=== PATIENT | female | born 1960 | race Caucasian/White ===

== ENCOUNTER → 2017-05-01 | Day surgery (SDC) | payer OTHER ==
--- NOTE | 2017-04-30 09:55 | History and Physical ---
"History & Physical Date of Service Apr 30, 2017. History & Physical Date of Note, 04/30/17 Chief Complaint: History of bioprosthetic aortic valve replacement with technically limited transthoracic echocardiogram, chronic diastolic heart failure, preoperative cardiac evaluation. PCP: DEON LANGSTON [facility] [place] [id number] [phone] History of Present Illness: Jovita Rose is a 56 year old year old female initially seen in cardiology consultation by the undersigned as an outpatient on 02/05/17 per the request of Dr. Langston to address the above concerns. The patient had previously lived in [place], [place] and was followed at [facility]. She has a history of bilateral breast carcinoma with bilateral mastectomies and chest radiation. She has a history of bicuspid aortic valve stenosis. She underwent cardiac catheterization in September, which revealed no significant obstructive CAD, but findings of mildly elevated right heart and left heart pressures. She was subsequently referred for surgical aortic valve replacement which took place in October, at [facility] Receiving a #25 bio AVR at that time. A previous transthoracic echocardiogram had been performed in 2013 at that time it was noted that the study was very technically limited with poor acoustic windows due to her body habitus and previous breast surgeries. Appropriate bioprosthetic aortic valve function was noted at that time although as mentioned it was a technically limited study. The patient had since moved to [place] and has since moved back to [place] and has lived in [place] since November,. She notes worsening shortness of breath with exertion and ankle edema over the last few months. She has recently been seen by surgery in regards to asymptomatic incisional hernia. She is also due for surveillance colonoscopy due to her past history of colon cancer with last colonoscopy having been performed about 3 years ago. She is also interested in pursuing Aissatou-en-Y gastric bypass surgery. Since her initial cardiology consultation in Jan, 2017 she underwent a nuclear stress test on 03/13/17 that revealed normal perfusion , no ischemia or scar and an LVEF of 68%. A transthoracic echo revealed grossly normal LV wall motion and LVEF, but due to poor acoustic windows related to her breast reconstruction the prosthetic aortic valve was note well visualized and the gradients could not be assessed. She has has continued mild shortness of breath and mild ankle edema , improved on her current diuretic regimen. Review of Systems: A Complete Review of 10 Systems is as stated above or negative. Past Medical History: Hypertension Type II DM Dyslipidemia Aortic stenosis S/P AVR # 25 pericardial Hypothyroidism Breast CA S/P XRT & chemotherapy Colon cancer DANYELLE , on CPAP BMI > 40 Past Surgical History: S/P AVR #25 pericardial valve Partial colectomy for stage I colon cancer LSCS Bilateral mastectomies Removal of right breast implant 2010 Hysteroscopy with biopsy Family History: Both parents with premature CAD (Father at 51 years; mother at 57 years) Social History: bow maker No tobacco; social alcohol Allergies: Glycerin; Lactose; Lisinopril; Monosodium glutamate; and Pcn [ penicillins] Medications: CURRENT OUTPATIENT MEDICATIONS INSTRUCTIONS Pediatric Lqtinbuf-Zlsfxcdn-J (FLINTSTONES COMPLETE) 60 MG chewable tablet Take 1 Tab by mouth daily. meclizine (ANTIVERT) 25 MG Tablet Take 2 Tabs by mouth 2 times a day. ARIPiprazole (ABILIFY) 2 MG Tablet Take 1 Tab by mouth daily. pregabalin (LYRICA) 50 MG Capsule Take 1 Cap by mouth 2 times a day. metoprolol tartrate (LOPRESSOR) 100 MG Tablet Take 1 Tab by mouth daily. Insulin Regular Human, Conc, 500 UNIT/ML SOPN 200 units 30 min prior to meals, plus 5 units for every 50 above 150 Insulin Syringe/Needle U-500 31G X 6MM 0.5 ML MISC Use as directed. Blood Glucose Monitoring Suppl (ONETOUCH ULTRA SYSTEM) W/DEVICE KIT As directed ONETOUCH DELICA LANCETS 33G MISC TEST 8 TIMES DAILY DIRECTED, E11.9, hypertension Glucose Blood (ONETOUCH ULTRA BLUE) STRP TEST 8 TIMES DAILY DIRECTED, E11.9, hypertension Naproxen Sodium (ALEVE) 220 MG Capsule Take 220 mg by mouth 3 times a day. Calcium Carbonate-Simethicone (ADRIAN-SELTZER HEARTBURN + GAS) 750-80 MG CHEW Take by mouth. cyclobenzaprine (FLEXERIL) 10 MG Tablet TAKE 1 TABLET AT BEDTIME NEEDED FOR MUSCLE SPASM torsemide 10 mg TAKE (1) TABLET DAILY. valsartan (DIOVAN) 40 MG Tablet TAKE (1) TABLET DAILY. levothyroxine (LEVOXYL) 75 MCG Tablet One tablet by mouth daily busPIRone (BUSPAR) 15 MG Tablet TAKE 1 TABLET BY MOUTH TWICE DAILY MetFORMIN (GLUCOPHAGE) 1000 MG Tablet One pill by mouth twice a day with meals traZODone (DESYREL) 100 MG Tablet At bedtime when needed buPROPion (WELLBUTRIN) 100 MG Tablet Take 100 mg by mouth daily. atorvaSTATin (LIPITOR) 40 MG Tablet Take 1 Tab by mouth daily. To prevent heart attack/stroke, protect kidney, and cholesterol CITALOPRAM HYDROBROMIDE 40 MG PO TABS one tab daily DOCUSATE SODIUM 100 MG PO CAPS 1 daily ASPIRIN EC 81 MG PO TBEC 1 Tab Oral Daily glucose (BD GLUCOSE) 5 GM CHEW 3 every 15 minutes until glucose is > 100 mg/dL for hypoglycemia Clindamycin HCl 300 MG Capsule Take 300 mg by mouth. Before dentist OBJECTIVE/PHYSICAL EXAMINATION: Vitals taken 02/05/17: BP 102/64 | Pulse 96 | Resp 16 | Wt 221 lbs 3.2 oz ( 100.336kg) | BMI 42.31 kg/m | BSA 2.07 m | LMP 04/07/2011 General: no acute distress and stated age Eyes: conjunctiva are pink and non-injected, sclera clear Neck: normal jugular venous pulse, no hepatojugular reflux Chest: normal shape and normal respiratory effort Lungs: clear to auscultation and percussion Cardiac Exam: - regular heart sounds, 2/6 systolic murmur heard best a right sternal border Chest exam: Well-healed midline sternotomy incision, bilateral mastectomy incisions Abdomen: abdomen soft, non-tender, no abnormal masses and no hepatosplenomegaly ventral hernia noted Musculoskeletal: no gait disturbance, no weakness Extremities: Trace to 1+ bilateral ankle edema Neuro: grossly normal exam Psych: appropriate affect and insight. Data: EKG performed today 02/05/2017 revealed normal sinus rhythm at 99 beats per minute. Although the computer interpretation includes the finding of age undetermined anterior infarction, there is an R-wave noted in V2, in the R-wave progression is similar to the prior tracing dating back to 12/08/2014. Mild nonspecific inferior ST changes are noted limited to leads II and III. IMPRESSION: 56 year old year old female ICD-10-CM 1. SHAW (dyspnea on exertion) R06.09 2. S/P AORTIC VALVE REPLACEMENT - #25 pericardial Hernandez valve Z95.2 3. Heart failure, diastolic, due to HTN (HCC) I11.0 I50.30 4. Type 2 diabetes mellitus with hemoglobin A1c goal of less than 7.0% (HCC) E11.9 5. HTN, goal below 140/90 I10 6. Dyslipidemia E78.5 7. Preoperative cardiovascular examination Z01.810 PLAN: Proceed with transesophageal echocardiogram for further assessment of bioprosthetic AV structure and function due to shortness of breath, and prior to proposed hernia repair, and bariatric surgery. Roberto Carlos Muniz DO [facility], [address] [place] [id number] This chart was completed in part utilizing [employer] Speech Voice Recognition Software. Grammatical errors, random word insertions, prounoun errors, and incomplete sentences are an occasional consequence of this system due to software limitations, ambient noise, and hardware issues. Any formal questions or concerns about the content, text, or information contained within the body of this dictation should be directly addressed to the provider for clarification."
[2017-05-01] VITALS (11 sets, daily range): BP systolic 84–155; BP diastolic 45–70; PULSE 84–95; TEMP 36.5; O2SAT 93–98; Ht 149.9 cm; Wt 101.0 kg
[~2017-05-01] VITALS: Ht 149.9 cm; Wt 101.0 kg
[~2017-05-01] MED LIST: ARIP2TAB3 PO; ASPI81TA28 PO; ATOR-24 PO; BUPR-83 PO; BUPR100T8 PO; BUSP15TA70 PO; CALC-571 PO; CITA40TA4 PO; CLIN300C2 PO; CYCL10TA6 PO; DOCU100C31 PO; GLUC-338 PO; INSUINJ2 SQ; LEVO75TA5 PO; LYR50 PO; MECL1TAB42 PO; METF-384 PO; METO100T14 PO; NAPR1TAB9 PO; PEDICHW50 PO; TORS20TA2 PO; TRAZ100T29 PO; VALS40TA2 PO
--- NOTE | 2017-05-01 08:02 | History & Physical Bridge Note ---
H&P Re-Evaluation Bridge Note: I have examined the patient, reviewed the History & Physical and in the interval since the performance of the History & Physical I have noted the following changes of clinical significance: Pt notes continued shortness of breath with exertion and ankle edema, on torsemide 10 mg PO daily , Otherwise no changes noted
--- NOTE | 2017-05-01 08:05 | Cardiology Procedure Brief Nt ---
Preliminary Cardiology Note Procedure Date May 01, 2017. Pre-Procedure Diagnosis Assess prosthetic AV function Post-Procedure Diagnosis Suspected Severe prosthetic Procedure(s) Performed ALMA Rn Maternal Child Mini Muniz DO Irrigation Installation Specialist(s) INGE Dexter Estimated Blood Loss none Preliminary Findings 2D and echocardiographic findings of severe Recommendations Will plan for cardiac cath and CT surgery consult Specimens none Anesthesia lidocaine 40 mg IV, propofol 300 mg IV Complication(s) None Disposition cardiac laborer tan house recovery area
--- NOTE | 2017-05-01 08:29 | Discharge Instructions ---
Discharge Instructions Procedure Procedure Date: May 01, 2017. Reason for Visit: Assess prosthetic Aortic Valve function Discharge Discharge Date: May 01, 2017. Discharge Diagnosis: Severe prosthetic AV stenosis Last Recorded Wt (Kilograms): 101 Anesthesia Post Anesthesia Instructions: If you have had General Anesthesia or IV Sedation: * Do not drive today. * Resume driving when surgeon permits. * Do not make important decisions or sign legal documents today. * Call surgeon for: 1. Temperature elevations greater than 101 degrees F. 2. Uncontrollable pain. 3. Excessive bleeding. 4. Persistent nausea and vomiting. 5. Medication intolerance (nausea, vomiting or rash). * For nausea and vomiting use only clear liquids such as: tea, soda, bouillon until nausea subsides, then gradually increase diet as tolerated. * If you have any concerns or questions, call your surgeon's office. If physician is unavailable and it is an emergency, call 911 or go to the nearest emergency room. Instructions Activity Recommendations: limitations as noted below Recommended Home Diet: resume previous diet Allergies: Coded Allergies: Lisinopril (Unverified Allergy, Unknown, unk, 05/01/17) Uncoded Allergies: PENICILLIN (Allergy, Unknown, unk, 05/01/17) Provider Instructions ACTIVITY RECOMMENDATIONS: Resume activities as tolerated with no limitations unless specified. x__ No lifting over _10_ pounds for 24 hours. _x_ Do not engage in vigorous exercise, sexual activity, or sports for 24 hours. _x_ Do not drive or operate any motorized equipment for 24 hours. _x_ You may return to work/school tomorrow. _x_ Nothing to eat or drink until gag reflex returns. _x_ No HOT or WARM liquids for _24_ hours. _x_ Avoid "scratchy" foods such as potato chips or pretzels for 24 hours following procedure. SPECIAL CARE: If you experience coughing up or vomiting of blood, contact ___Dr Muniz, [phone] Follow Up Follow-up with: Keep follow up visit as planned Hector Monsalve Recommendations: Call your doctor if: * Temperature above 101 degrees * Pain not relieved by pain medicine ordered * There is increased drainage or redness from any incision * You have any unanswered questions or concerns. Your Doctors Instructions noted above were prepared by provider Roberto Carlos J. [place]. Patient Signature Section: Patient Instructions Signature Page Jovitakenia Harrisonjennifer Patient (or Guardian) Signature/Date: I have read and understand the instructions given to me by my caregivers. Caregiver/RN/Doctor Signature/Date: The above-named patient and/or guardian has received patient instructions on this date. + Original Patient Signature Page (only) stays with chart. Please make copy for patient.
--- NOTE | 2017-05-01 08:57 | Anesthesiology Progress Note ---
Anesthesia Post Op Note Date & Time May 01, 2017 at 08:57 Vital Signs Pain Intensity: 0 Vital Signs Past 12 Hours Date Time Temp Pulse Resp B/P (MAP) Pulse Ox O2 Delivery O2 Flow Rate FiO2 05/01/17 08:45 94 16 101/52 (68) 97 Room Air 05/01/17 08:30 89 16 97/51 (66) 97 Room Air 05/01/17 08:18 89 16 100/51 (67) 97 Room Air 05/01/17 08:08 90 16 85/49 (61) 98 Room Air 05/01/17 08:00 92 16 98/51 98 Nasal Cannula 4 05/01/17 07:58 92 16 98/51 (67) 98 Room Air 05/01/17 07:57 92 16 96/49 98 Nasal Cannula 4 05/01/17 07:55 92 16 111/47 98 Nasal Cannula 4 05/01/17 07:50 92 16 102/45 98 Nasal Cannula 4 05/01/17 07:45 87 16 101/56 98 Nasal Cannula 4 05/01/17 07:40 84 16 84/47 98 Nasal Cannula 4 05/01/17 07:35 87 16 155/69 98 Nasal Cannula 4 05/01/17 07:32 90 16 140/57 96 Nasal Cannula 4 05/01/17 07:28 95 16 140/57 96 Nasal Cannula 4 05/01/17 06:57 36.5 88 18 93 Room Air Notes Mental Status: alert / awake / arousable, participated in evaluation Pt Amnestic to Procedure: Yes Nausea / Vomiting: adequately controlled Pain: adequately controlled Airway Patency, RR, SpO2: stable & adequate BP & HR: stable & adequate Hydration State: stable & adequate Anesthetic Complications: no major complications apparent
--- NOTE | 2017-05-01 09:56 | TEE ---
*NOTICE TO RECEIVING [employer] This information is strictly Confidential and protected under [place] law. [place] law prohibits you from making any further disclosure of this information unless further disclosure is expressly permitted by the written consent of the person to whom it pertains or is authorized by law. A general authorization for the release of medical or other information is not sufficient for this purpose. Hospital accepts no responsibility if the information is made available to any other person, INCLUDING THE PATIENT. Interpretation Summary * Name: BRIGIDA ROCA Study Date: 05/01/2017 07:34 AM BP: 140/57 mmHg * Patient Location: Cardiac Spa Manager Holding area HR: 90 * : 1960 (M/d/yyyy) Gender: Female Height: 59 in * Age: 56 yrs Ethnicity: CA Weight: 222 lb * Ordering Physician: Roberto Carlos Muniz DO, FACC * Referring Physician: Roberto Carlos Muniz DO, FACC * Performed By: Savannah Larsen RCS * * Reason For Study: Pre-Op, SOB, Abnormal ECHO * BSA: 1.9 m2 * -- Conclusions -- * There is severe concentric left ventricular hypertrophy. * No regional wall motion abnormalities noted. * Normal to hyperdynamic LV systolic function was present. * The qualitative left ventricular Ejection Fraction = >70 %. * There is mild mitral regurgitation. * There is moderate tricuspid regurgitation. * Doppler findings do not suggest pulmonary hypertension. * The aortic root is normal size. * There is a bioprosthetic aortic valve. * The bioprosthetic leaflet analogous to the [facility] coronary cusp opens normally, however, there is reduced excusion of the other two leaflets with noted prosthetic calcification. * Mild prosthetic aortic valve regurgitation is present. * Severe prosthetic aortic valve stenosis is present. * The peak CW velocity across the aortic valve is 4.5 m/s, the mean AV gradient =49 mm Hg, the calculated MILENA=0.8 cm squared. Procedure Details * ALMA Probe #1 utilized for procedure. * The study was performed in Cardiac Catheterization Lab. * Time out was conducted by the physician, nurse, and medical technologist clinical with positive identification of patient and procedure. * Informed consent for Transesophageal Echocardiogram was obtained prior to the procedure. * An intravenous line was placed. A topical anesthetic agent was used for oropharangeal anesthesia. A bite block was inserted. * Sedation performed by the anesthesia department. * 40 mg IV of Lidocaine was used for procedure. 300 mg IV of Propofol was used for procedure. PROBE IN: 0732 PROBE OUT: 0757 40 mg of Lidocaine was administered by anesthesia. 300 mg of Propofol was administered by anesthesia. * The patient's vital signs, including blood pressure, heart rate, pulse oximetry and cardiac rhythm were monitored throughout the procedure . * Contrast injection with agitated saline was performed. * A multifrequency, multiplane transesopheageal echocardiographic endoscope was inserted and manipulated in the standard fashion to achieve multiplane views. * The transesophageal probe was passed without difficulty. * The usual views were obtained; basal, mid-esophageal, transgastric and aortic views. * The patient tolerated the procedure well without evidence of orophangeal or esophageal trauma. * A 2D transesophageal echocardiogram was performed. * A 2D transesophageal echocardiogram with color flow Doppler was performed. * A 2D transesophageal echocardiogram with Doppler and color flow Doppler was performed. Left Ventricle * The left ventricle is normal in size. * There is severe concentric left ventricular hypertrophy. * Normal to hyperdynamic LV systolic function was present. * Ejection Fraction = >70 %. * The left ventricular wall motion is normal. * No regional wall motion abnormalities noted. Right Ventricle * The right ventricle is normal in size and function. Atria * The left atrial size is normal. * The left atrial appendage was not assessed. * Right atrial size is normal. * The interatrial septum is intact with no evidence for an atrial septal defect. Mitral Valve * The mitral valve anatomy is normal. * There is no mitral valve prolapse present. * There is no mitral valve stenosis. * There is mild mitral regurgitation. Tricuspid Valve * The tricuspid valve is normal. * There is no tricuspid stenosis. * There is moderate tricuspid regurgitation. * Doppler findings do not suggest pulmonary hypertension. Aortic Valve * There is a bioprosthetic aortic valve. * The bioprosthetic leaflet analogous to the [facility] coronary cusp opens normally, however, there is reduced excusion of the other two leaflets with noted prosthetic calcification. Mild prosthetic aortic valve regurgitation is present. Severe prosthetic aortic valve stenosis is present. Pulmonic Valve * The pulmonic valve is not well seen, but is grossly normal. Great Vessels * The aortic root is normal size. Pericardium * There is no pericardial effusion. MMode 2D Measurements and Calculations Ao root diam 3.1 cm Ao root area 7.5 cm\S\2 LVOT diam 1.9 cm LVOT area 2.8 cm\S\2 Doppler Measurements and Calculations Ao V2 max 451.6 cm/sec Ao max PG 81.6 mmHg Ao max PG (full) 75.8 mmHg Ao V2 mean 318.8 cm/sec Ao mean PG 49.1 mmHg Ao mean PG (full) 45.3 mmHg Ao V2 VTI 97.7 cm MILENA(I,A) 0.77 cm\S\2 MILENA(I,D) 0.77 cm\S\2 MILENA(V,A) 0.75 cm\S\2 MILENA(V,D) 0.75 cm\S\2 LV V1 max PG 5.8 mmHg LV V1 mean PG 3.8 mmHg LV V1 max 120.4 cm/sec LV V1 mean 92.2 cm/sec LV V1 VTI 26.6 cm SV(Ao) 733.4 ml SI(Ao) 380.5 ml/m\S\2 SV(LVOT) 75.3 ml SI(LVOT) 39.1 ml/m\S\2
== END | disposition home or self-care (01) ==
LOC: C.CATH 06:20
PROVIDERS: ATTEND Specialist
DX: T82.858A Stenosis of other vascular prosthetic devices, implants and grafts, initial encounter (principal); I11.0 Hypertensive heart disease with heart failure; I50.32 Chronic diastolic (congestive) heart failure; I25.10 Atherosclerotic heart disease of native coronary artery without angina pectoris; E78.5 Hyperlipidemia, unspecified; E11.9 Type 2 diabetes mellitus without complications; E03.9 Hypothyroidism, unspecified; G47.33 Obstructive sleep apnea (adult) (pediatric); Z85.3 Personal history of malignant neoplasm of breast; Z85.038 Personal history of other malignant neoplasm of large intestine; Z92.21 Personal history of antineoplastic chemotherapy; Z90.13 Acquired absence of bilateral breasts and nipples; Z90.49 Acquired absence of other specified parts of digestive tract; Z79.4 Long term (current) use of insulin; Z79.82 Long term (current) use of aspirin; Z79.899 Other long term (current) drug therapy; Z95.2 Presence of prosthetic heart valve; X58.XXXA Exposure to other specified factors, initial encounter

== ENCOUNTER 2017-07-17 19:27 | Emergency (ER) | payer OTHER ==
[~2017-07-17] VITALS: Ht 149.9 cm; Wt 104.5 kg
[2017-07-17 19:39] VITALS: TEMP 37.1; Ht 149.9 cm; Wt 104.5 kg
[2017-07-17 20:10] VITALS: O2SAT 94
--- NOTE | 2017-07-17 20:31 | EMERGENCY ROOM VISIT NOTE ---
History Report prepared by Ricarda: Rito Padilla Under the Supervision of: Dr. Shaquille Kulkarni M.D. First contact with patient: 20:07 Chief Complaint: SHORTNESS OF BREATH Stated Complaint: SOB- PHYSICIAN REFERRED- CARDIAC HX History of Present Illness The patient is a 56 year old female who presents to the Emergency Room with complaints of shortness of breath that began recently. This afternoon, she was walking to the bank and became very short of breath. This is abnormal for her to experience shortness of breath with exertion. At this time, she was also having heart palpitations. She follows up with Dr. Muniz for the swelling in her legs and they called her this evening. She told them about this episode of shortness of breath and they referred her into the ER. Her legs are more swollen than usual. She notes that she gained 6 pounds as well. She denies any abdominal pain. She has a history of 4 c-sections and a open heart procedure. She is on Warfarin secondary to her heart murmur. Source of History: patient Onset: this afternoon Position: other (Respiratory System) Symptom Intensity: moderate Quality: other (Shortness of breath) Timing: constant Modifying Factors (Worsening): exertion Associated Symptoms: No abdominal pain Note: She has bilateral leg edema as well. Review of Systems All systems have been listed, reviewed, and are negative other than those previously mentioned. Please see Additional Medical History Sheet. Past Medical & Surgical Medical Problems: (1) Breast cancer (2) Colon cancer (3) Heart murmur Surgical Problems: (1) History of mastectomy (2) History of open heart surgery (3) Previous section Family History Omitted secondary to the patient's age. Social History Smoking Status: Never Smoker Smokeless Tobacco Use: No Drug Use: none Marital Status: in relationship Housing Status: lives with significant other Occupation Status: employed Current/Historical Medications Scheduled Aripiprazole (Abilify), 2 MG PO DAILY Atorvastatin (Lipitor), 40 MG PO DAILY Bupropion (Wellbutrin Sr), 100 MG PO QAM Buspirone Hcl (Buspar), 15 MG PO BID Citalopram Hydrobromide (Citalopram Hydrobromide), 40 MG PO DAILY Clindamycin Hcl (Cleocin), 1 CAP PO before dentist Cyclobenzaprine Hcl (Flexeril), 10 MG PO HS Insulin Regular (Human) (Humulin R U-500 (Concentr), 200 UNITS SQ prior to meals Levothyroxine Sodium (Levothyroxine Sodium), 1 TAB PO DAILY Meclizine Hcl (Meclizine Hcl), 2 TAB PO BID Metformin Hcl (Glucophage), 1,000 MG PO BID Metoprolol Tartrate (Lopressor) (Lopressor), 1 TAB PO DAILY Pregabalin (Lyrica), 50 MG PO DAILY Spironolactone (Aldactone), 1 TAB PO DAILY Torsemide (Demadex), 10 MG PO DAILY Trazodone Hcl (Trazodone), 100 MG PO HS Warfarin Sodium (Coumadin), 7.5 MG PO DAILY Allergies Coded Allergies: Lisinopril (Unverified Allergy, Unknown, unk, 07/17/17) Penicillins (Unverified Allergy, Unknown, ., 07/17/17) Uncoded Allergies: PENICILLIN (Allergy, Unknown, unk, 05/01/17) Physical Exam Vital Signs Date Time Temp Pulse Resp B/P (MAP) Pulse Ox O2 Delivery O2 Flow Rate FiO2 07/17/17 23:27 94 Room Air 07/17/17 22:20 92 20 123/45 93 Room Air 07/17/17 20:43 83 07/17/17 20:10 94 07/17/17 19:39 37.1 86 20 115/67 90 Room Air Physical Exam GENERAL: Patient awake, alert, oriented x 3. Patient follows commands. Patient does not appear toxic. Patient is adequately hydrated and well- nourished. SKIN: No erythema, pallor, cyanosis or rash HEENT: Normal head, pupils equal, reactive to light and accommodation. Oral cavity and posterior pharynx appear normal. Neck: Without adenopathy, no neck vein distention. LUNGS: Clear to auscultation. No wheezes, no rales, no rhonchi. HEART: 4/6 systolic murmur. No gallops. No rubs CHEST: Midline sternotomy scars. Bilateral mastectomy. ABDOMEN: Obese, soft, nontender. RLQ abdominal hernia. EXTREMITIES: No signs of trauma. 2+ nonpitting pretibial edema. No calf or thigh tenderness. NEUROLOGIC: Cranial nerves II-XII within normal limits. No gross motor sensory function deficits. Medical Decision & Procedures ER Provider Diagnostic Interpretation: Radiology results as stated below per my review and radiologist interpretation: CHEST 2 VIEWS ROUTINE HISTORY: Short of breath. COMPARISON: None. FINDINGS: The cardiac silhouette is mildly enlarged. Aortic valve prosthesis. Poststernotomy changes. Hazy appearance to the left mid to lower lung zone is likely due to overlapping breast implant. The lungs appear clear. No evidence for pulmonary edema. No pleural effusions. No pneumothorax. IMPRESSION: No acute process. Electronically signed by: German Del Cid M.D. 07/17/2017 9:09 PM Dictated Date/Time: 07/17/2017 9:[address] Chest: No Evidence of Pulmonary Embolism Laboratory Results 07/17/17 20:30 Red Blood Count 4.38, Mean Corpuscular Volume 89.7, Mean Corpuscular Hemoglobin 30.1, Mean Corpuscular Hemoglobin Concent 33.6, Mean Platelet Volume 10.0 07/17/17 20:30 Test 07/17/17 20:30 White Blood Count 11.44 K/uL (4.8-10.8) Red Blood Count 4.38 M/uL (4.2-5.4) Hemoglobin 13.2 g/dL (12.0-16.0) Hematocrit 39.3 % (37-47) Mean Corpuscular Volume 89.7 fL (80-100) Mean Corpuscular Hemoglobin 30.1 pg (25-34) Mean Corpuscular Hemoglobin Concent 33.6 g/dl (32-36) Platelet Count 186 K/uL (130-400) Mean Platelet Volume 10.0 fL (7.4-10.4) RDW Standard Deviation 51.5 fL (36.4-46.3) RDW Coefficient of Variation 16.2 % (11.5-14.5) Nucleated RBC Absolute Count (auto) 0.07 K/uL (0-0) Neutrophils % (Manual) 47.4 % Lymphocytes % (Manual) 28.9 % Variant Lymphocytes % (manual) 0.9 % Monocytes % (Manual) 2.6 % Metamyelocytes % 0.9 % Nucleated Red Blood Cells % 0.6 % Neutrophils # (Manual) 5.42 K/uL (1.4-6.5) Total Absolute Neutrophils 5.42 K/uL (1.4-6.5) Lymphocytes # (Manual) 3.31 K/uL (1.2-3.4) Absolute Variant Lymphocytes 0.10 K/uL Total Absolute Lymphocytes 5.62 K/uL (1.2-3.4) Monocytes # (Manual) 0.30 K/uL (0.11-0.59) Metamyelocytes # 0.10 K/uL (0-0) Percent Large Granular Lymphocytes 19.3 % Absolute Large Granular Lymphocytes 2.21 K/uL Polychromasia 1+ Prothrombin Time 19.2 SECONDS (9.0-12.0) Prothromb Time International Ratio 1.8 (0.9-1.1) Activated Partial Thromboplast Time 32.8 SECONDS (21.0-31.0) Partial Thromboplastin Ratio 1.3 Anion Gap 10.0 mmol/L (3-11) Est Creatinine Clear Calc Drug Dose 59.6 ml/min Estimated GFR () 64.1 Estimated GFR (Non- 55.3 BUN/Creatinine Ratio 21.4 (10-20) Calcium Level 9.6 mg/dl (8.5-10.1) Total Bilirubin 0.6 mg/dl (0.2-1) Aspartate Amino Transf (AST/SGOT) 21 U/L (15-37) Alanine Aminotransferase (ALT/SGPT) 25 U/L (12-78) Alkaline Phosphatase 73 U/L (45-117) Troponin I 0.021 ng/ml (0-0.045) Total Protein 7.2 gm/dl (6.4-8.2) Albumin 3.6 gm/dl (3.4-5.0) Globulin 3.6 gm/dl (2.5-4.0) Albumin/Globulin Ratio 1.0 (0.9-2) Laboratory results as stated above per my review. Medications Administered Medications (Trade) Dose Ordered Sig/Nadege Route Start Time Stop Time Status Last Admin Dose Admin Albuterol/ Ipratropium (Duoneb) 3 ml NOW STAT INH 07/17/17 22:05 07/17/17 22:07 DC 07/17/17 22:19 3 ML ECG Indication: SOB/dyspnea Rate (beats per minute): 79 Rhythm: normal sinus Findings: ST depression (1, 2, aVL, V5, V6), left axis deviation, prolonged QT Comparison ECG Date: no prior available ED Course 2007: Past medical records reviewed. The patient was evaluated in room C2. A complete history and physical examination was performed. 2205: Ordered DuoNeb 3 ml INH 2330: The patient's ambulatory trial was successful. Her oxygen saturation at that time was 93-94%. 2356: Secondary to the patient's PE history, I have decided to CT her chest to rule out the possibility for this diagnosis. Medical Decision I considered multiple diagnoses including: congestive heart failure, aortic stenosis, PE and pneumonia. The patient complains of dyspnea on exertion for the past 1 month. Multiple labs, EKG and imaging were obtained. Please see above. The patient has a prosthetic aortic valve. She does not appear to be in failure or have evidence of pneumonia. White count is minimally elevated. CT was negative for PE. Patient's pulse oximetry was in the mid 90s. She does not appear to be dyspneic. The patient was able to ambulate in the ED and maintained pulse oximetry within the 90s. I believe that she is safely return home but will need follow-up by her family physician or substitute crossing guard. No medication changes were made. Medication Reconcilliation Current Medication List: was personally reviewed by me Blood Pressure Screening Patient's blood pressure: Normal blood pressure Blood pressure disposition: Did not require urgent referral Impression Primary Impression: Dyspnea Scribe Attestation The scribe's documentation has been prepared under my direction and personally reviewed by me in its entirety. I confirm that the note above accurately reflects all work, treatment, procedures, and medical decision making performed by me. Departure Information Dispostion Home / Self-Care Referrals Gregory Rausch M.D. (PCP) Forms HOME CARE DOCUMENTATION FORM, IMPORTANT VISIT INFORMATION Patient Instructions My [facility] Additional Instructions Continue all of your current medications as prescribed. Follow-up with your family physician and or substitute crossing guard within the next week. Return here sooner if you become more short of breath.
[2017-07-17] MEDS ORDERED: WARF5TAB90 PO (20:36)
[2017-07-17] MEDS ORDERED: SPIR25TA PO (20:36)
[2017-07-17 20:41] LABS: HEMATOCRIT 39.3 % (37-47); MEAN CELL VOLUME 89.7 fL (80-100); MEAN CORPUSCULAR HEMOGLOBIN 30.1 pg (25-34); MEAN CORPUSCULAR HGB CONC 33.6 g/dl (32-36); PLATELET COUNT 186 K/uL (130-400); RED BLOOD COUNT 4.38 M/uL (4.2-5.4); WHITE BLOOD COUNT 11.44 K/uL (4.8-10.8)
[2017-07-17 20:53] LABS: INR 1.8 (0.9-1.1); PARTIAL THROMBOPLASTIN RATIO 1.3; PROTHROMBIN TIME (PATIENT) 19.2 SECONDS (9.0-12.0)
[2017-07-17 21:01] LABS: BUN/CREATININE RATIO 21.4 (10-20); CALCIUM 9.6 mg/dl (8.5-10.1); CREATININE 1.1 mg/dl (0.60-1.20); POTASSIUM 3.4 mmol/L (3.5-5.1)
--- NOTE | 2017-07-17 21:11 | DIAGNOSTIC IMAGING REPORT ---
CHEST 2 VIEWS ROUTINE HISTORY: Short of breath. COMPARISON: None. FINDINGS: The cardiac silhouette is mildly enlarged. Aortic valve prosthesis. Poststernotomy changes. Hazy appearance to the left mid to lower lung zone is likely due to overlapping breast implant. The lungs appear clear. No evidence for pulmonary edema. No pleural effusions. No pneumothorax. IMPRESSION: No acute process. Electronically signed by: German Del Cid M.D. 07/17/2017 9:09 PM Dictated Date/Time: 07/17/2017 9:05 PM
[2017-07-17 21:47] LABS: LARGE GRANULAR LYMPH ABSOLUTE 2.21 K/uL; LARGE GRANULAR LYMPHOCYTE % 19.3 %; LYMPH ABS # 3.31 K/uL (1.2-3.4); LYMPHOCYTE % 28.9 %; METAMYELOCYTE % 0.9 %; NEUTROPHILS % 47.4 %; POLYCHROMASIA 1+; VARIANT LYMPHOCYTE % 0.9 %
[2017-07-17] MEDS ORDERED: ALBUT/IPRATROP 3MG/0.5MG NEB 3 ML VIAL INH STA (22:05)
[2017-07-18] MEDS ORDERED: OPTIRAY 320 IV PRN (00:15)
[2017-07-18 01:01] VITALS: BP 98/42; PULSE 89; O2SAT 93
--- NOTE | 2017-07-18 06:38 | DIAGNOSTIC IMAGING REPORT ---
CT ANGIOGRAM OF THE CHEST CLINICAL HISTORY: Shortness of breath. History of right pulmonary embolism. COMPARISON STUDY: Chest x-ray dated 07/17/2017 TECHNIQUE: Following the IV administration of 92 mL of Optiray-320, CT angiogram of the thorax was performed from the thoracic inlet to the lung bases utilizing the pulmonary embolus protocol. Images are reviewed in the axial, sagittal, and coronal planes. IV contrast was administered without complication. MIP imaging was performed. A dose lowering technique was utilized adhering to the principles of ALARA. CT DOSE: 725.00 mGy.cm FINDINGS: Images of the upper abdomen reveal a 15 mm hypodense lesion within the right hepatic dome. The spleen appears enlarged. No pathologically enlarged axillary mediastinal or hilar lymph nodes were visualized. There was no evidence of thoracic aortic dilatation. There were no pulmonary artery filling defects to indicate acute pulmonary embolism. No pleural effusions are visualized. There is respiratory motion artifact. There is no focal pulmonary consolidation. A left-sided breast tissue food safety manager is visualized. There are postsurgical changes of a midline sternotomy and aortic valve replacement. IMPRESSION: 1. No evidence of acute pulmonary embolism 2. No evidence of focal pulmonary consolidation 3. 15 mm hypodense lesion within the right hepatic lobe 4. Splenomegaly Electronically signed by: Scott Reyes M.D. 07/18/2017 6:37 AM Dictated Date/Time: 07/18/2017 6:33 AM
[2017-07-18] MEDS ORDERED: LACT12LO (13:34)
[2017-07-18] MEDS ORDERED: TORS10TA14 PO (13:34)
[2017-07-18] MEDS ORDERED: NAPR500T3 PO (13:34)
[2017-07-18] MEDS ORDERED: CYCL1SOL OPR (13:34)
[2017-07-18] MEDS ORDERED: VALS40TA2 PO (13:34)
[2017-07-18] MEDS ORDERED: CMD5 PO (13:34)
[2017-07-18] MEDS ORDERED: DOCU-94 PO (13:34)
[2017-07-18] MEDS ORDERED: BUPR-83 PO (13:34)
[2017-07-18] MEDS ORDERED: SPR25 PO (13:34)
[2017-07-18] MEDS ORDERED: PEDICHW50 PO (13:35)
[2017-07-19 14:42] LABS: COMPLETE YES
[2017-07-19] MEDS ORDERED: ASPEC81 PO (14:53)
== END 2017-07-18 00:56 | disposition home or self-care (01) ==
LOC: C.EDB 19:29 → C.EDC 07-18 00:56
DX: R06.00 Dyspnea, unspecified (principal); R93.8 Abnormal findings on diagnostic imaging of other specified body structures; R16.1 Splenomegaly, not elsewhere classified; R00.8 Other abnormalities of heart beat; M79.89 Other specified soft tissue disorders; Z85.3 Personal history of malignant neoplasm of breast; Z85.038 Personal history of other malignant neoplasm of large intestine; Z79.01 Long term (current) use of anticoagulants; Z79.899 Other long term (current) drug therapy

== ENCOUNTER 2017-07-18 11:23 | Inpatient (IN) | payer OTHER ==
[2017-07-18] VITALS (8 sets, daily range): BP systolic 89–130; BP diastolic 48–65; PULSE 69–82; TEMP 36.7–37.1; O2SAT 91–99; Ht 149.9 cm; Wt 100.3 kg
[~2017-07-18] VITALS: Ht 149.9 cm; Wt 100.3 kg
[~2017-07-18 11:23] MED LIST changes: -ASPI81TA28 PO; -BUPR-83 PO; -CALC-571 PO; -DOCU100C31 PO; -GLUC-338 PO; -NAPR1TAB9 PO; -PEDICHW50 PO; +SPIR25TA PO; -VALS40TA2 PO; +WARF5TAB90 PO
[2017-07-18] MEDS ORDERED: ONDANSETRON INJ 2 MG/ML 2 ML VIAL IV PRN (12:15)
[2017-07-18] MEDS ORDERED: ACETAMINOPHEN 325 MG TAB PO PRN (12:15)
[2017-07-18 12:42] LABS: HEMATOCRIT 41.4 % (37-47); MEAN CORPUSCULAR HEMOGLOBIN 30.5 pg (25-34); MEAN CORPUSCULAR HGB CONC 33.6 g/dl (32-36); MEAN PLATELET VOLUME 10.5 fL (7.4-10.4); PLATELET COUNT 207 K/uL (130-400); RED BLOOD COUNT 4.55 M/uL (4.2-5.4); WHITE BLOOD COUNT 10.42 K/uL (4.8-10.8)
[2017-07-18 12:52] LABS: INR 1.6 (0.9-1.1)
[2017-07-18 13:10] LABS: BUN/CREATININE RATIO 20.5 (10-20); CALCIUM 9.5 mg/dl (8.5-10.1); CREATININE 1.03 mg/dl (0.60-1.20); MAGNESIUM 1.9 mg/dl (1.8-2.4); POTASSIUM 3.9 mmol/L (3.5-5.1)
[2017-07-18 13:12] LABS: PARTIAL THROMBOPLASTIN RATIO 1.3
[2017-07-18] MEDS ORDERED: DOCU-94 PO (13:34)
[2017-07-18] MEDS ORDERED: TORS10TA14 PO (13:34)
[2017-07-18] MEDS ORDERED: VALS40TA2 PO (13:34)
[2017-07-18] MEDS ORDERED: CYCL1SOL OPR (13:34)
[2017-07-18] MEDS ORDERED: SPR25 PO (13:34)
[2017-07-18] MEDS ORDERED: NAPR500T3 PO (13:34)
[2017-07-18] MEDS ORDERED: CMD5 PO (13:34)
[2017-07-18] MEDS ORDERED: LACT12LO (13:34)
[2017-07-18] MEDS ORDERED: BUPR-83 PO (13:34)
[2017-07-18] MEDS ORDERED: PEDICHW50 PO (13:35)
[2017-07-18] MEDS ORDERED: POLYETHYLENE (MIRALAX) 17 GM PACK PO PRN (13:45)
[2017-07-18] MEDS ORDERED: GLUCAGON FOR INJ 1 MG VIAL SQ PRN (14:00)
[2017-07-18] MEDS ORDERED: DEXTROSE 50% 50 ML SYR IV PRN (14:00)
[2017-07-18] MEDS ORDERED: GLUCOSE 10 TABS/TUBE PO PRN (14:00)
[2017-07-18] MEDS ORDERED: GLUCOSE 40% GEL 15 GM TUBE PO PRN (14:00)
[2017-07-18] MEDS ORDERED: PHARMACY GLYCEMIC MGMT CONSULT PRN (14:03)
[2017-07-18] MEDS ORDERED: TRAZODONE HCL 100 MG TAB PO PRN (14:15)
[2017-07-18] MEDS ORDERED: INSULIN REGULAR SQ SCH (14:15)
[2017-07-18] MEDS ORDERED: MECLIZINE HCL 12.5 MG TAB PO PRN (14:15)
[2017-07-18] MEDS ORDERED: CYCLOBENZAPRINE HCL 10 MG TAB PO PRN (14:15)
[2017-07-18] MEDS ORDERED: [UNRECOGNIZED DRUG - OTHER] SQ SCH (14:15)
--- NOTE | 2017-07-18 14:15 | Cardiology Consultation ---
Cardiology Consultation Date of Consultation: Jul 18, 2017 History of Present Illness Jovita Rose is a 56 year old female seen in cardiology consultation per the request of HIRA Victor for the evaluation of shortness of breath. The patient is well known to the undersigned as I have followed her as an outpatient , and previously performed a transesophageal echocardiogram on her at [facility] in 2016. I had initially seen the patient on 02/05/17 in outpatient cardiology consultation due to concerns of history of chronic diastolic heart failure with bioprosthetic aortic valve replacement in the past. At that time, she was seen in preoperative evaluation as she was interested in pursuing Aissatou-en-Y gastric bypass surgery. The patient had previously lived in [place], [place] and was followed at [facility]. She has a history of bilateral breast carcinoma with bilateral mastectomies and chest radiation. She has a history of bicuspid aortic valve stenosis. She underwent cardiac catheterization in September, which revealed no significant obstructive CAD, but findings of mildly elevated right heart and left heart pressures. She was subsequently referred for surgical aortic valve replacement which took place in October, at [facility] Receiving a #25 bio AVR at that time. A previous transthoracic echocardiogram had been performed in 2013 at that time it was noted that the study was very technically limited with poor acoustic windows due to her body habitus and previous breast surgeries. Appropriate bioprosthetic aortic valve function was noted at that time although as mentioned it was a technically limited study. The patient had since moved to [place] and has since moved back to [place] and has lived in [place] since November,. I had seen her in January, she complained of worsening shortness of breath. A transthoracic echocardiogram had been attempted as an outpatient in our office. It was technically insufficient to exclude prosthetic aortic valve stenosis or aortic valve regurgitation due to problems with poor acoustic windows related to her past breast surgery and body habitus. She therefore underwent transesophageal echocardiogram performed by the undersigned on 04/30/2017 with findings of prosthetic valve stenosis. The patient was placed on a trial of anticoagulation with Coumadin to see if the stenosis would improve with anticoagulation. The tentative plan was for her to see me in the office next week based on how she was feeling, I plan to repeat a transesophageal echocardiogram for reassessment of her valve disease. She however had called to the office on 2 separate occasions complaining of worsening shortness of breath. Recently her torsemide diuretic had been increased for 3 days. She stated that she fell as she urinated more but did not help her recent progressive symptoms. She describes to me that over the last month, her exertional shortness of breath has worsened. She states that when she tries to walk a distance of about one half of a city block she has to stop due to profound shortness of breath and a sensation that her heart is pounding out of her chest. She then has to rest for 10-15 minutes before she is able to do anything again. As noted this is been progressively worse over the last few months, and has definitely worsened over the last one month time. 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 When I followed up with her today, she complained of worsening symptoms, and therefore I had her come back for direct admission for further assessment. History Past Medical History: 1. Hypertension 2. Type 2 diabetes mellitus 3. Dyslipidemia 4. Aortic valve stenosis status post bioprosthetic aortic valve replacement as noted above 5. Hypothyroidism 6. Breast carcinoma for which she underwent x-ray therapy, and chemotherapy 7. Colon cancer 8. Obstructive sleep apnea on CPAP 9. Obesity, body mass index greater than 40 Past Surgical History: 1. Status post bioprosthetic aortic valve replacement 2. Partial colectomy for stage I colon cancer 3. Bilateral mastectomies 4. Removal of right breast implant in 2009 due to infection, and this was not replaced 5. Hysteroscopy with biopsy 6. 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 A total of 10 systems reviewed and were otherwise negative. Allergies Coded Allergies: Lisinopril (Unverified Allergy, Unknown, unk, 07/17/17) Penicillins (Unverified Allergy, Unknown, ., 07/17/17) Uncoded Allergies: PENICILLIN (Allergy, Unknown, unk, 05/01/17) Medications Reported Home Medications Medications Dose Route/Sig Max Daily Dose Days Date Category Dose Instructions Flintstones Chewable (Pediatric Multiple Vitamin W/) 1 Chw Chw 1 Tab PO QAM 07/18/17 Reported Coumadin (Warfarin Sod) 5 Mg Tab 1 Tab PO DAILY 07/18/17 Reported Take one tab Mon & Fri. Take 1.5 tab on , Wed, Th , Sat, & Sun Diovan (Valsartan) 40 Mg Tab 1 Tab PO DAILY 90 07/18/17 Reported Demadex (Torsemide) 10 Mg Tab 10 Mg PO DAILY 07/18/17 Reported Spironolactone 25 Mg Tab 0.5 Tab PO DAILY 07/18/17 Reported Naproxen 500 Mg Tab 1 Tab PO BID 30 07/18/17 Reported Colace (Docusate Sodium) 100 Mg Cap 1 Cap PO DAILY 15 07/18/17 Reported Cyclogyl 1% Oph (Cyclopentolate Hcl) 1 % Rosina 1 Drop OPR BID 07/18/17 Reported starting 2 weeks prior to surgery Wellbutrin (Bupropion HCl) 100 Mg Tab 100 Mg PO DAILY 07/18/17 Reported Lac-Hydrin Twelve (Lactic Acid (Ammonium Lactate)) 12 % Lot DAILY 07/18/17 Reported Apply to both feet daily Cleocin (Clindamycin Hcl) 300 Mg Cap 1 Cap PO BEFORE DENTIST 7 05/01/17 Reported Citalopram Hydrobromide 40 Mg Tab 40 Mg PO DAILY 05/01/17 Reported Lipitor (Atorvastatin Calcium) 40 Mg Tab 40 Mg PO DAILY 05/01/17 Reported Trazodone (Trazodone HCl) 100 Mg Tab 100 Mg PO HS PRN 05/01/17 Reported Glucophage (Metformin Hcl) 1,000 Mg Tab 1,000 Mg PO BID 05/01/17 Reported Buspar (Buspirone Hcl) 15 Mg Tab 15 Mg PO BID 05/01/17 Reported Levothyroxine Sodium 75 Mcg Tab 1 Tab PO DAILY 30 05/01/17 Reported Flexeril (Cyclobenzaprine Hcl) 10 Mg Tab 10 Mg PO HS PRN 05/01/17 Reported Humulin R U-500 (Concentr (Insulin Regular (Human)) 500 Unit/Ml Inj 200 Units SQ PRIOR TO MEALS 05/01/17 Reported plus 5 units for every 50 above 150 Lopressor (Metoprolol Tartrate) 100 Mg Tab 1 Tab PO DAILY 30 05/01/17 Reported Lyrica (Pregabalin) 50 Mg Cap 50 Mg PO BID 05/01/17 Reported Abilify (Aripiprazole) 2 Mg Tab 2 Mg PO DAILY 05/01/17 Reported Meclizine Hcl 25 Mg Tab 2 Tab PO BID PRN 30 05/01/17 Reported Physical Exam Vital Signs (Last 8hrs): Last 8 Hrs Date Time Temp Pulse Resp B/P (MAP) Pulse Ox O2 Delivery O2 Flow Rate FiO2 07/18/17 12:08 36.9 82 18 89/65 99 Room Air General Appearance: Alert and Oriented x3. NAD. Head: Normocephalic Atraumatic. Eyes: PERRLA, EOMI, conjunctiva and sclera clear Neck: Supple. No carotid bruits noted. No JVD. No HJD. Respiratory: Breath sounds clear to auscultation bilaterally. No w/r/r. Cardiovascular: Reg rate and rhythm. 2/6 systolic murmur heard best at the right sternal border, postoperative changes noted on her chest a sternotomy incision, bilateral mastectomy Abdomen: Normal bowel sounds, soft nontender. no abdominal bruits. Extremities: No edema, no clubbing or cyanosis. distal pulses 2/4 bilaterally. Neuro: No focal deficits. Psychiatric: Normal affect. Data Last Resulted 07/18/17 12:19 Last Resulted 07/18/17 12:19 Past 24 Hours Test 07/18/17 12:19 Range/Units Prothromb Time International Ratio 1.6 H 0.9-1.1 Prothrombin Time 18.0 H 9.0-12.0 SECONDS EKG performed 07/17/17 and reviewed and pelvic: Normal sinus rhythm at 79 bpm, lateral T-wave change, suggestive of possible ischemia Assessment & Plan Impression: 56-year-old female Progressive dyspnea on exertion, suspect worsening bioprosthetic aortic valve stenosis, perhaps superimposed coronary artery disease. She had a bicuspid aortic valve history her past history, with premature aortic stenosis due to the congenital bicuspid aortic valve and likely her history of chest radiation contributed to her history of aortic stenosis. This chest radiation history together with her family history of early onset aggressive CAD, certainly places her at risk for underlying coronary heart disease, given the reportedly, she had no obstructive CAD at the time of her past surgery 6 years ago. Discussion/recommendations: I had planned for the patient to have an elective outpatient transesophageal echocardiogram, but her symptoms had worsened dramatically with multiple recent telephone calls. Her symptoms were not palliated with an increase in her diuretic dose. She is actually better compensated and person to what I had thought she would be. But I have recommended direct admission so that she can be assessed not only by the undersigned, but also by anesthesia in advance of an inpatient transesophageal echocardiogram. She tolerated this procedure from a respiratory standpoint back in April, but given her body habitus and history of obstructive sleep apnea, she is certainly at risk for airway issues and I would grade her as a ASA class III patient. Will plan to make her NPO after MN for procedure. Will hold her coumadin, as given her worsening symptoms , I anticipate anticoagulation has not helped improve her valve stenosis which is likely due to prosthetic degeneration. Regarding her home medications, will decrease her metoprolol to 50 mg twice a day as compared to 100 mg daily while she is in the hospital. We will hold off on her diuretic therapy for now as her blood pressure is a little bit on the lower side. Hold Coumadin. Toney Muniz, DO
--- NOTE | 2017-07-18 14:40 | Pharmacy Progress Note ---
Glycemic Control Intl Consult Date of Service Jul 18, 2017. Scope Glycemic Pharmacist consulted on 07/18/17 for glycemic control and to write orders per [facility] inpatient glycemic control protocol Objective Weight (Kilograms): 101.600 Accuchecks BSG (last 24hrs): Test 07/18/17 12:19 Random Glucose 211 mg/dl (70-99) Laboratory Data (last 24hrs) Test 07/18/17 12:19 Anion Gap 10.0 mmol/L BUN/Creatinine Ratio 20.5 Blood Urea Nitrogen 21 mg/dl Creatinine 1.03 mg/dl Potassium Level 3.9 mmol/L Sodium Level 138 mmol/L White Blood Count 10.42 K/uL Recent Pertinent Medications Outpatient Anti-diabetic Regimen: * Humulin U-500 200 units SC TIDM plus 5 units for every 50 mg/dL over 150 mg/dL Assessment & Plan ASSESSMENT: * 56 yo F directly admitted by Dr. Muniz for cardiac work-up * Pt is known to be on high doses of U500 as outpatient with unknown control ( A1c to be added tomorrow) * Per pt she checks her BSGs 2-3 times daily - usually all within 100- 140 mg/ dL range * Pt took 200 units prior to admission with breakfast and has missed lunch * Plans are to be NPO after midnight for cardiac testing in the AM * I do not feel comfortable administering full dose and will instead cut dose of half for dinner tonight * Continue to check patient every 4 hours and correct with additional short acting insulin * If BSGs uncontrolled (>200 mg/dL X 2), recommend insulin drip until the AM as patient is going to be NPO instead of giving additional U500 PLAN FOR INPATIENT GLYCEMIC CONTROL: * Humulin R U-500 100 units BIDM (for now - will make changes tomorrow based on plan) * Correctional Insulin with NOVOLOG per scale Q4 hours * Goal Range: Low 100 mg/dL - High 140 mg/dL * Correction Factor: 5 mg/dL/unit * Nutritional / Prandial insulin per carb ratio of 1 unit per -- grams CHO consumed * If patient's BSGs not controlled on U-500 and rise >200 mg/dL X 2 - recommend initiation of insulin drip * Please note that the plan above was derived based on current level of insulin resistance and hospital stress. These recommendations are appropriate for inpatient admission only. Plan of care upon discharge will need to be reassessed to avoid potential outpatient hypo/hyperglycemia. Thank you.
--- NOTE | 2017-07-18 15:41 | History and Physical ---
History & Physical Date & Time of Service: Jul 18, 2017 at 14:15 Chief Complaint: SOB Primary Care Physician: Gregory Rausch M.D. History of Present Illness Source: patient Pt presents for direct admission under suggestion of Dr Muniz for continued SOB and possible repeat ALMA. Pt with hx aortic valve stenosis s/p bioprosthetic aortic valve replacement, HTN, hyperlipidemia, DM II, hypothyroidism, DANYELLE, neuropathy, anxiety and depression. Pt reports increased SOB with exertion for past month. Usually can walk approx 3 blocks and states now can only walk 1/2 block before she experiences SOB and palpitations described as heart pounding and racing. She reports resting 10-15 minutes before SOB and heart pounding sensation resolves. Also reports hx increased LE edema and approx 3 months ago she was switched from Lasix to Demadex 10mg and spironolactone 12.5mg. She states those med changes had resolution of LE edema, until past 3 weeks having some LE edema again. Reports 6lb increase in weight in the past week. Follows with Dr Muniz. Had ALMA 04/2017: severe bioprosthetic aortic stenosis. EF >70% . CT surgery recommended trial of Coumadin and repeat ALMA 2-3 months. Pt has been on Coumadin and states is taking regularly. Pt reports hx vertigo for years. Uses meclizine prn with moderate relief. Pt denies any worsening vertigo. Pt also reports hx anxiety and depression on medications and feels like fairly well controlled at this time. Denies suicidal or homicidal ideations. Pt reports hx chronic constipation. Uses Colace prn. Last BM this morning and reported as soft. Pt states last week had cough productive brown yellow sputum which is now resolving. Pt reports is to have cataract removal in couple of weeks and has been placed on Cyclogyl to R "pupil problem". Hx neuropathy with paresthesias to bilateral feet, denies any changes with this. Denies any recent vision changes. Denies fever/chills, diaphoresis, N/V/D, BONILLA, syncope, neck pain, CP, cough, sore throat, choking, otalgia, rhinorrhea, abdominal pain, extremity weakness, rashes, urinary symptoms. Pt was seen in ER yesterday. She had negative CXR and CT angio at that time, WBC : 11.4, INR: 1.8. She was d/c home. Past Medical/Surgical History Medical Problems: (1) Aortic valvar stenosis Status: Chronic (2) Breast cancer Status: Resolved (3) Cataract Status: Chronic (4) Colon cancer Status: Resolved (5) Depression with anxiety Status: Chronic (6) Dyslipidemia Status: Chronic (7) Heart failure Status: Chronic (8) Heart murmur Status: Chronic (9) History of removal of breast implant Permanent Comment: Left Status: Chronic (10) HTN (hypertension) Status: Chronic (11) Hypothyroidism Status: Chronic (12) DANYELLE (obstructive sleep apnea) Status: Chronic Surgical Problems: (1) H/O aortic valve replacement Status: Chronic (2) H/O colonoscopy Status: Chronic (3) History of appendectomy Status: Chronic (4) History of carpal tunnel surgery of left wrist Status: Chronic (5) History of carpal tunnel surgery of right wrist Status: Chronic (6) History of hysterectomy with bilateral oophorectomy Status: Chronic (7) History of mastectomy Status: Resolved (8) History of open heart surgery Status: Resolved (9) History of partial colectomy Status: Chronic (10) Previous section Status: Resolved (11) Previous section Status: Chronic (12) S/P mastectomy, bilateral Status: Chronic Family History Coarctation of aorta SON FH: CAD (coronary artery disease) FATHER ( age 51 from [place]) MOTHER (CABG, age 56 during 2nd CABG) BROTHER (CABG x 4 at age 65) Stroke SISTER Social History Smoking Status: Never Smoker Smokeless Tobacco Use: No Alcohol Use: none Drug Use: none Marital Status: in relationship Housing status: lives with significant other Occupational Status: employed Allergies Coded Allergies: Lisinopril (Unverified Allergy, Unknown, unk, 07/17/17) Penicillins (Unverified Allergy, Unknown, ., 07/17/17) Uncoded Allergies: PENICILLIN (Allergy, Unknown, unk, 05/01/17) Home Medications Scheduled Aripiprazole (Abilify), 2 MG PO DAILY Atorvastatin (Lipitor), 40 MG PO DAILY Bupropion (Wellbutrin), 100 MG PO DAILY Buspirone Hcl (Buspar), 15 MG PO BID Citalopram Hydrobromide (Citalopram Hydrobromide), 40 MG PO DAILY Clindamycin Hcl (Cleocin), 1 CAP PO before dentist Cyclopentolate Hcl (Cyclogyl 1% Oph), 1 DROP OPR BID Docusate Sodium (Colace), 1 CAP PO DAILY Insulin Regular (Human) (Humulin R U-500 (Concentr), 200 UNITS SQ prior to meals Lactic Acid (Ammonium Lactate) (Lac-Hydrin Twelve), DAILY Levothyroxine Sodium (Levothyroxine Sodium), 1 TAB PO DAILY Metformin Hcl (Glucophage), 1,000 MG PO BID Metoprolol Tartrate (Lopressor) (Lopressor), 1 TAB PO DAILY Naproxen (Naproxen), 1 TAB PO BID Pediatric Multiple Vitamin W/ (Flintstones Chewable), 1 TAB PO QAM Pregabalin (Lyrica), 50 MG PO BID Spironolactone (Spironolactone), 0.5 TAB PO DAILY Torsemide (Demadex), 10 MG PO DAILY Valsartan (Diovan), 1 TAB PO DAILY Warfarin Sod (Coumadin), 1 TAB PO DAILY Scheduled PRN Cyclobenzaprine Hcl (Flexeril), 10 MG PO HS PRN for Muscle Spasms Meclizine Hcl (Meclizine Hcl), 2 TAB PO BID PRN for Dizziness or Vertigo Trazodone Hcl (Trazodone), 100 MG PO HS PRN for Sleep Review of Systems See HPI for pertinent positives & negatives. All other systems reviewed and were otherwise negative Physical Exam Vital Signs Date Time Temp Pulse Resp B/P (MAP) Pulse Ox O2 Delivery O2 Flow Rate FiO2 07/18/17 12:08 36.9 82 18 89/65 99 Room Air General Appearance: no apparent distress, + obese Head: normocephalic, atraumatic Eyes: EOMI, sclerae normal, + pertinent finding (Right pupil dilated approx 4mm , reactive to light) ENT: hearing grossly normal, pharynx normal Neck: supple, no JVD, trachea midline Respiratory/Chest: chest non-tender, lungs clear, normal breath sounds, no respiratory distress, no accessory muscle use Cardiovascular: regular rate, rhythm, + systolic murmur Abdomen/GI: normal bowel sounds, non tender, soft Extremities/Musculoskelatal: normal capillary refill, normal range of motion, non-tender, + pedal edema (mild) Neurologic/Psych: alert, normal mood/affect, oriented x 3 Skin: normal color, warm/dry, + pertinent finding (+healed surgical scars to chest midline and bilateral anterior chest, several to abdomen. bilateral toes rough erythematous skin noted, no skin openings noted, non-tender. no discharge) Diagnostics Laboratory Results Results Past 24 Hours Test 07/18/17 12:19 07/18/17 12:22 Range/Units White Blood Count 10.42 4.8-10.8 K/uL Red Blood Count 4.55 4.2-5.4 M/uL Hemoglobin 13.9 12.0-16.0 g/dL Hematocrit 41.4 37-47 % Mean Corpuscular Volume 91.0 80-100 fL Mean Corpuscular Hemoglobin 30.5 25-34 pg Mean Corpuscular Hemoglobin Concent 33.6 32-36 g/dl RDW Standard Deviation 53.4 36.4-46.3 fL RDW Coefficient of Variation 16.6 11.5-14.5 % Platelet Count 207 130-400 K/uL Mean Platelet Volume 10.5 7.4-10.4 fL Nucleated RBC Absolute Count (auto) 0.06 0-0 K/uL Nucleated Red Blood Cells % 0.6 % Prothrombin Time 18.0 9.0-12.0 SECONDS Prothromb Time International Ratio 1.6 0.9-1.1 Sodium Level 138 136-145 mmol/L Potassium Level 3.9 3.5-5.1 mmol/L Chloride Level 99 98-107 mmol/L Carbon Dioxide Level 29 21-32 mmol/L Anion Gap 10.0 3-11 mmol/L Blood Urea Nitrogen 21 7-18 mg/dl Creatinine 1.03 0.60-1.20 mg/dl Est Creatinine Clear Calc Drug Dose 62.6 ml/min Estimated GFR () 69.4 Estimated GFR (Non- 59.9 BUN/Creatinine Ratio 20.5 10-20 Random Glucose 211 70-99 mg/dl Calcium Level 9.5 8.5-10.1 mg/dl Magnesium Level 1.9 1.8-2.4 mg/dl Thyroid Stimulating Hormone (TSH) 2.510 0.300-4.500 uIu/ml Activated Partial Thromboplast Time 33.2 21.0-31.0 SECONDS Partial Thromboplastin Ratio 1.3 EKG EKG: NSR rate 80, no ST elevation, t wave inversion in I, no significant change noted from yesterday ekg Impression Assessment and Plan ACUTE ON CHRONIC DIASTOLIC HEART FAILURE Possible secondary to HTN, obesity, DM, valvulopathy Pt had CXR no acute process and CT angio negative for PE yesterday 07/17/17 in ER. CBC - WBC no leukocytosis, BMP stable today -cardiology consult - Dr Muniz aware -Hold spironolactone and Demadex -NPO after midnight as probable ALMA procedure tomorrow COUMADIN THERAPY INR 1.6 today -hold Coumadin until further instructed by cardiology -repeat INR in morning DM TYPE II -HgbA1c: 6.6 on 03/21/17 -will repeat HgbA1c tomorrow am -hold metformin -pt doing well on insulin regular conc 500 at home. Will do glycemic consult to continue this -diabetic diet DANYELLE -CPAP HS per home settings Hypothyroidism -TSH -continue home levothyroxine HTN pt low BP's-asymptomatic. Repeat BP 130/60 -cardiology recommends decreasing to metoprolol 50mg BID while in hospital and holding diuretics -continue valsartan HYPERLIPIDEMIA -continue Lipitor NEUROPATHY -continue lyrica -continue valsartan DEPRESSION/ANXIETY -continue Abilify, Wellbutrin, Buspar, celexa -continue Trazodone HS prn sleep DVT PROPHYLAXIS -SCD's/warfarin held in setting of procedure in am. DISPOSITION -admit tele -Full Code as per discussion with pt -Follows with Dr Rausch for routine care Pt was seen with Dr Escobar ADDENDUM: I have seen and examined the patient and agree with the assessment and plan as above. The patient describes progressive dyspnea on exertion as above. On exam she has a 3/6 ENEDINA at the LSB, clear lungs, no JVD and min swelling of bilateral LEs with large soft abdomen. She does have some chronic tenderness to palpation in the lower abdomen related to her hernia. She does not exhibit respiratory distress or have any conversational dyspnea. The progressive dyspnea is thought 2/2 progression of of prosthetic AoV despite recent trial of coumadin. ALMA in am to evaluate per Dr. Muniz. Of note, pt is very well controlled on her U500 insulin, so we are keeping her on this with the pharmacy managing her dosages, starting with a slight reduction. Appreciate their assistance during her short stay. [place], DO Level of Care Telemetry Advanced Directives Existing Living Will: Yes Existing Power of Athletic Coach: Yes Resuscitation Status FULL RESUSCITATION VTE Prophylaxis VTE Risk Assessment Done? Y/N: Yes Risk Level: Moderate Given or contraindicated: SCD's Additional Copies To Gregory Ruasch M.D.
[2017-07-18] MEDS ORDERED: HUMULIN-R U-500 100 UNITS in SYRINGE 0 ML SC SCH (16:45)
--- NOTE | 2017-07-18 16:57 | Anesthesiology Progress Note ---
Anesthesia Progress Note Date of Service Jul 18, 2017. Progress Notes Patient is a 56 year old female slated for ALMA tomorrow with Dr. Muniz. Allergies to PCN and lisinopril. PSH significant for AVR in Oct 2010 with severe prosthetic AV stenosis. ALAM done here in April 2017 under MAC without issue. Patient with increasing SOB which is why ALMA is planned. Other PMH significant for DANYELLE with CPAP, SOB, HTN, CHF, GERD, DM, hypothyroidism, previous b/l mastectomies for breast cancer (right arm restrict). No previous problems with anesthesia. Airway exam shows MP 3 with missing molars and ENEDINA. Plan for MAC. Advised to be NPO after midnight. All questions answered. Consent obtained.
[2017-07-18] MEDS: INSULIN ASPART 100 UNITS/ML 3 ML PEN SC SCH ×3 (17:14→23:58)
[2017-07-18] MEDS: BusPIRone 15 MG TAB PO SCH (20:15)
[2017-07-18] MEDS: METOPROLOL TARTRATE 50 MG TAB PO SCH (20:16)
[2017-07-18] MEDS: CYCLOPENTOLATE HCL 1% OP SOLN 2 ML BTL OPR SCH (20:18)
[2017-07-18] MEDS: PREGABALIN 50 MG CAP PO SCH (20:27)
[2017-07-18] MEDS ORDERED: METOPROLOL TARTRATE 50 MG TAB PO SCH (21:00)
[2017-07-18] MEDS ORDERED: CYCLOPENTOLATE HCL 1% OP SOLN 2 ML BTL OPR SCH (21:00)
[2017-07-19] VITALS (12 sets, daily range): BP systolic 78–134; BP diastolic 41–75; PULSE 71–82; TEMP 36.5–37; O2SAT 91–99
[2017-07-19] MEDS: INSULIN ASPART 100 UNITS/ML 3 ML PEN SC SCH ×3 (04:00→12:00)
[2017-07-19] MEDS ORDERED: LEVOTHYROXINE 75 MCG TAB PO SCH (06:00)
[2017-07-19 06:57] LABS: INR 1.7 (0.9-1.1); PROTHROMBIN TIME (PATIENT) 18.9 SECONDS (9.0-12.0)
[2017-07-19] MEDS ORDERED: PROPOFOL IV EMULSION 10 MG/ML 20 ML VIAL IV ONE (07:15)
[2017-07-19] MEDS ORDERED: LIDOCAINE HCL 2% 2 ML VIAL (20MG/ML) ONE (07:15)
[2017-07-19] MEDS ORDERED: MIDAZOLAM HCL 1 MG/ML 2ML VIAL ONE (07:16)
[2017-07-19] MEDS ORDERED: KETAMINE HCL INJ 50 MG/ML 10 ML VIAL ONE (07:17)
--- NOTE | 2017-07-19 08:15 | Progress Note ---
Internal Med Progress Note Date of Service: Jul 19, 2017. Provider Documentation: SUBJECTIVE: Seen and examined at bedside Got ALMA this morning Denies Chest pain, SOB, dizziness, abd pain, nausea Offers no complaints Family at bedside OBJECTIVE: Vital Signs-as noted below Physical Exam: General Appearance:Obese, no apparent distress Head: normocephalic, Atraumatic Eyes: normal inspection, EOMI, PERRL Neck: supple, Trachea midline Respiratory/Chest: Normal breath sounds, CTA Cardiovascular: S1, S2, + systolic murmur Abdomen/GI:Soft, Non tender, Bowel sounds present Extremities/Musculoskelatal:normal inspection, Trace edema Neurologic/Psych:AAOX3, grossly no focal neurological deficits Skin: normal color, warm Lab data as noted below. ASSESSMENT & PLAN: Possible bioprosthetic aortic valve stenosis and superimposed CAD H/O Chronic diastolic heart failure H/O B/L breast carcinoma with B/L mastectomies and radiation S/P AVR in Oct 2010 at [facility] Receiving a #25 bio AVR at that time. Last ECHO in Apr 2017: EF>70%; Severe prosthetic aortic valve stenosis Presented with worsening SOB on exertion CXR: no acute process and CTA: negative for PE yesterday on 07/17/17 ALMA ON 07/09/17: consistent with severe bioprosthetic aortic valve stenosis Plan to resume diuretics upon discharge Started on Aspirin and planned to discontinue Coumadin per cardiology recommendations Appreciate cardiology Input (Coumadin was initiated to see if this would perhaps alleviate the obstruction of the bioprosthetic aortic valve but as Aortic valve prosthesis remained severely stenotic, Coumadin was discontinued) Planned for outpatient diagnostic cardiac catheterization with Dr. Brandon Winston to exclude underlying CAD,prior to cardiothoracic surgery consultation on 07/25/2017. DM II Last A1c: 6.6 on 03/21/17 A1c: 6.4 hold metformin ISS, Humulin-R, Accu checks DANYELLE CPAP qHS Hypothyroidism TSH: 2.5 continue levothyroxine HTN stable Continued metoprolol 50mg BID per cards Hold diuretics continue valsartan HYPERLIPIDEMIA continue Lipitor NEUROPATHY continue lyrica DEPRESSION/ANXIETY continue Abilify, Wellbutrin, Buspar, celexa Trazodone HS prn DVT PX SCD/warfarin held Code Status: Full Code DISPOSITION Monitor in Tele Plan to discharge home today Follow up with Dr Rausch for Primary Care on Jul 26, 2017 at 12:45pm Follow up with your [facility] on Jul 24, 2017 at 9:20AM Get cardiac catheterization with Dr. Brandon Winston on 07/25/2017 as advised Seek immediate medical attention if your symptoms reoccur or worsen Medication changes: Your Coumadin was discontinued You are started on Aspirin 81mg daily Vital Signs: Date Time Temp Pulse Resp B/P (MAP) Pulse Ox O2 Delivery O2 Flow Rate FiO2 07/19/17 14:35 Room Air 07/19/17 12:00 Room Air 07/19/17 11:44 37.0 78 20 91/57 (68) 93 07/19/17 10:51 98 Room Air 07/19/17 08:57 81 16 126/53 (77) 98 Room Air 07/19/17 08:50 81 16 115/53 (73) 98 Room Air 07/19/17 08:40 81 16 109/41 94 Room Air 5 07/19/17 08:40 81 16 109/41 (63) 98 Room Air 07/19/17 08:35 81 16 87/47 92 Nasal Cannula 5 07/19/17 08:30 76 16 86/43 92 Nasal Cannula 5 07/19/17 08:25 76 16 78/42 91 Nasal Cannula 5 07/19/17 08:20 75 16 110/55 91 Nasal Cannula 5 07/19/17 08:15 75 16 134/61 94 Nasal Cannula 5 07/19/17 08:10 82 16 117/75 99 Nasal Cannula 5 07/19/17 05:34 36.5 71 20 120/54 95 Room Air 71 07/19/17 04:00 CPAP 07/19/17 03:12 36.5 71 20 120/54 (76) 95 Room Air 71 CPAP 07/19/17 00:00 Room Air 07/18/17 23:11 36.7 70 18 125/49 (74) 96 CPAP 70 07/18/17 23:05 69 93 07/18/17 20:19 77 18 119/50 (73) 91 Room Air 07/18/17 20:00 Room Air 07/18/17 18:52 36.8 78 18 110/54 (72) 91 Room Air 07/18/17 16:16 37.1 77 16 118/48 (71) 93 Room Air 07/18/17 16:00 91 Room Air Lab Results: Results Past 24 Hours Test 07/18/17 15:58 07/18/17 19:33 07/18/17 23:32 07/19/17 04:09 Range/Units Bedside Glucose 214 246 121 88 70-90 mg/dl Test 07/19/17 06:26 07/19/17 06:30 07/19/17 09:12 07/19/17 13:32 Range/Units Bedside Glucose 114 106 193 70-90 mg/dl Prothrombin Time 18.9 9.0-12.0 SECONDS Prothromb Time International Ratio 1.7 0.9-1.1 Estimated Average Glucose 137 mg/dl Hemoglobin A1c 6.4 4.5-5.6 %
--- NOTE | 2017-07-19 08:47 | Cardiology Procedure Brief Nt ---
Preliminary Cardiology Note Procedure Date Jul 19, 2017. Pre-Procedure Diagnosis Suspected Severe prosthetic aortic valve stenosis Post-Procedure Diagnosis Severe prosthetic aortic vavle stenosis Procedure(s) Performed ALMA Circle Edger Mini Muniz DO Test Analyst(s) INGE Hernandez, INGE Lyon Estimated Blood Loss none Medication(s) Neosynephrine 500 mcg IV, for blood pressure support. Preliminary Findings Severe prosthetic aortic valve stenosis Recommendations Recovery in laborer aquatic life recovery area, then transfer to back to room 212. Discontinue coumadin , as this did not help the valve stenosis, which at this point if felt to be degenerative prosthetic stenosis. Will proceed with work up for re-do AVR. Specimens none Anesthesia Dr Salas Bullard of anesthesia department, propofol 310 mg, lidocaine 40 mg IV Complication(s) None Disposition laborer aquatic life recovery area, then transfer to room 212
[2017-07-19] MEDS ORDERED: ATORVASTATIN 40 MG TAB PO SCH (09:00)
[2017-07-19] MEDS ORDERED: ARIPIprazole TAB 5 MG TAB PO SCH (09:00)
[2017-07-19] MEDS ORDERED: DOCUSATE SODIUM 100 MG CAP PO SCH (09:00)
[2017-07-19] MEDS ORDERED: ARIPIprazole 1 MG/ML ORAL SOLN 150 ML BTL PO SCH (09:00)
[2017-07-19] MEDS ORDERED: CITALOPRAM 40 MG TAB PO SCH (09:00)
[2017-07-19] MEDS ORDERED: VALSARTAN 80 MG TAB PO SCH (09:00)
--- NOTE | 2017-07-19 09:08 | Anesthesiology Progress Note ---
Anesthesia Post Op Note Date & Time Jul 19, 2017 at 09:08 Vital Signs Pain Intensity: 0 Vital Signs Past 12 Hours Date Time Temp Pulse Resp B/P (MAP) Pulse Ox O2 Delivery O2 Flow Rate FiO2 07/19/17 08:57 81 16 126/53 (77) 98 Room Air 07/19/17 08:50 81 16 115/53 (73) 98 Room Air 07/19/17 08:40 81 16 109/41 94 Room Air 5 07/19/17 08:40 81 16 109/41 (63) 98 Room Air 07/19/17 08:35 81 16 87/47 92 Nasal Cannula 5 07/19/17 08:30 76 16 86/43 92 Nasal Cannula 5 07/19/17 08:25 76 16 78/42 91 Nasal Cannula 5 07/19/17 08:20 75 16 110/55 91 Nasal Cannula 5 07/19/17 08:15 75 16 134/61 94 Nasal Cannula 5 07/19/17 08:10 82 16 117/75 99 Nasal Cannula 5 07/19/17 05:34 36.5 71 20 120/54 95 Room Air 71 07/19/17 04:00 CPAP 07/19/17 03:12 36.5 71 20 120/54 (76) 95 Room Air 71 CPAP 07/19/17 00:00 Room Air 07/18/17 23:11 36.7 70 18 125/49 (74) 96 CPAP 70 07/18/17 23:05 69 93 Notes Mental Status: alert / awake / arousable, participated in evaluation Pt Amnestic to Procedure: Yes Nausea / Vomiting: adequately controlled Pain: adequately controlled Airway Patency, RR, SpO2: stable & adequate BP & HR: stable & adequate Hydration State: stable & adequate Anesthetic Complications: no major complications apparent
[2017-07-19] MEDS: CYCLOPENTOLATE HCL 1% OP SOLN 2 ML BTL OPR SCH (09:11)
[2017-07-19] MEDS ORDERED: HUMULIN-R U-500 100 UNITS in SYRINGE 0 ML SC SCH (09:45)
[2017-07-19] MEDS: BusPIRone 15 MG TAB PO SCH (09:49)
[2017-07-19] MEDS: METOPROLOL TARTRATE 50 MG TAB PO SCH (09:50)
[2017-07-19] MEDS: PREGABALIN 50 MG CAP PO SCH (10:02)
[2017-07-19 10:06] LABS: ESTIMATED AVERAGE GLUCOSE 137 mg/dl; HA1C FLAG Normal (Normal)
--- NOTE | 2017-07-19 11:04 | Pharmacy Progress Note ---
Glycemic: Assessment & Plan Date of Service Jul 19, 2017. Assessment & Plan Outpatient Anti-diabetic Regimen: * Humulin R U-500 200 units SC TIDM plus 5 units for every 50 mg/dL over 150 mg/ dL ASSESSMENT: 07/18/17 * 56 yo F directly admitted by Dr. Mnuiz for cardiac work-up * Pt is known to be on high doses of U500 as outpatient with unknown control ( A1c to be added tomorrow) * Per pt she checks her BSGs 2-3 times daily - usually all within 100- 140 mg/ dL range * Pt took 200 units prior to admission with breakfast and has missed lunch * Plans are to be NPO after midnight for cardiac testing in the AM * I do not feel comfortable administering full dose and will instead cut dose of half for dinner tonight * Continue to check patient every 4 hours and correct with additional short acting insulin * If BSGs uncontrolled (>200 mg/dL X 2), recommend insulin drip until the AM as patient is going to be NPO instead of giving additional U500 07/19/17 * Fasting BSG this AM = 114 mg/dL * Pt to ALMA early this AM and came back stable and was able to eat breakfast * I gave her half dose yesterday which seemed to be slightly underdosed given her need for Novolog correction - however, her BSGs look very good * I want to continue with current plan of reduced U500 dosing BIDM instead of TIDM and continue with additional Novolog if and when necessary * Pt did have her own insulin pen but due to storage/stability questioning - it was determined we would continue to use our own U500 supply PLAN FOR INPATIENT GLYCEMIC CONTROL: * Humulin R U-500 100 units BIDM - Considering increasing if necessary - pharmacy will closely follow through the evening * Correctional Insulin with NOVOLOG per scale Q4 hours * Goal Range: Low 100 mg/dL - High 140 mg/dL * Correction Factor: 5 mg/dL/unit * Nutritional / Prandial insulin per carb ratio of 1 unit per -- grams CHO consumed * If patient's BSGs not controlled on U-500 and rise >200 mg/dL X 2 - recommend initiation of insulin drip * Please note that the plan above was derived based on current level of insulin resistance and hospital stress. These recommendations are appropriate for inpatient admission only. Plan of care upon discharge will need to be reassessed to avoid potential outpatient hypo/hyperglycemia. Thank you.
--- NOTE | 2017-07-19 13:32 | Cardiology Follow-Up ---
Subjective General Date of Service: Jul 19, 2017. Chief Complaint: follow up Pt evaluation today including: conversation w/ patient, conversation w/ family , physical exam History of Present Illness The patient is a 56 year old female seen in follow up post ALMA performed this am. Patient feels well, tolerated procedure well. EKG performed post procedure reveals stable SR, mild non acute ST changes. Allergies Coded Allergies: Lisinopril (Unverified Allergy, Unknown, unk, 07/17/17) Penicillins (Unverified Allergy, Unknown, ., 07/17/17) Uncoded Allergies: PENICILLIN (Allergy, Unknown, unk, 05/01/17) Social History Smoking Status: Never Smoker Hx Tobacco Use In Past Year?: No Hx Alcohol Use - Type And Amou: No Hx Substance Use - Type And Am: No Problem List Medical Problems: (1) Dyspnea Status: Acute Physical Exam Vital Signs Last Vital Signs Documentation Date Time Temp Pulse Resp B/P (MAP) Pulse Ox O2 Delivery O2 Flow Rate FiO2 07/19/17 12:00 Room Air 07/19/17 11:44 37.0 78 20 91/57 (68) 93 07/19/17 08:40 5 Physical Exam Constitutional: Level of Distress: NAD ENMT: normal ENT inspection Neck: supple, trachea midline Lungs: Auscultation: no wheezing, no rales/crackles, no rhonchi Cardiovascular: Heart Auscultation: RRR, II/ ENEDINA Abdomen: Inspection & Palpation: soft, non-distended Extremities: no cyanosis, pertinent finding (trace ankle edema ) Neurologic: Gait & Station: pertinent finding (no focal neuro deficits ) Assessment and Plan Assessment and Plan Impression: 56-year-old female 1. Progressive dyspnea on exertion, with transesophageal echocardiogram findings consistent with severe bioprosthetic aortic valve stenosis. 2. Moderate to severe concentric left ventricular hypertrophy 3. History of past breast carcinoma for which patient underwent bilateral mastectomies, then breast reconstructive surgery, her right-sided breast implant and subsequently been removed due to infection. Therefore she has poor acoustic windows were transthoracic echocardiogram, and her transthoracic echocardiogram is technically insufficient. 4. No significant obstructive CAD at the time of preoperative cardiac catheterization before her initial bioprosthetic aortic valve replacement in 2010, however the patient certainly has risk factors for having developed coronary artery disease in the interim, with strong family history of premature coronary artery disease, and patient has history of chest radiation. Plan: At this time, I believe the progressive aortic stenosis is enough to explain her symptoms. 2 months ago, anticoagulated with Coumadin was initiated to see if this would perhaps alleviate the obstruction of the bioprosthetic aortic valve. Aortic valve prosthesis however remained severely stenotic, and at this point, this is likely due to degeneration of the prosthesis rather than thrombus formation. Recommend discontinuation of Coumadin. We'll send her home on aspirin. Otherwise continue her prior to hospital medications including prior dose of torsemide and spironolactone. Patient is to keep her outpatient visit with me as planned for early next week. She is tentatively scheduled for an outpatient diagnostic cardiac catheterization with Dr. Brandon Winston of our practice to exclude underlying CAD, prior to cardiothoracic surgery consultation. Cardiac catheterization is scheduled for 07/25/2017. Patient is to arrive at 10 AM. We will go over her precardiac catheterization instructions at her upcoming follow-up visit with me next week. Patient is feeling well at present, we'll therefore move forward with ongoing workup for aortic valve replacement on an outpatient basis with outpatient cardiac catheterization and outpatient cardiac thoracic surgery consultation. Laboratory Results Last 24 Hours Test 07/18/17 15:58 07/18/17 19:33 07/18/17 23:32 07/19/17 04:09 Bedside Glucose 214 mg/dl 246 mg/dl 121 mg/dl 88 mg/dl Test 07/19/17 06:26 07/19/17 06:30 07/19/17 09:12 Bedside Glucose 114 mg/dl 106 mg/dl Prothrombin Time 18.9 SECONDS Prothromb Time International Ratio 1.7 Estimated Average Glucose 137 mg/dl Hemoglobin A1c 6.4 %
[2017-07-19] MEDS ORDERED: ASPEC81 PO (14:53)
--- NOTE | 2017-07-19 14:55 | Discharge Summary ---
Discharge Summary Date of Service Jul 19, 2017. Discharge Summary Admission Date: Jul 18, 2017 at 12:10 Discharge Disposition: Home Principal Diagnosis: Severe Aortic Stenosis Procedures: ALMA: * There is severe concentric left ventricular hypertrophy. * The LV Ejection Fraction = 60-65%. * There is mild mitral regurgitation. * There is moderate tricuspid regurgitation. * The aortic root is normal size. * There is a bioprosthetic aortic valve. * The bioprosthetic leaflet analogous to the right coronary cusp opens , however, there is restricted excusion of the other two leaflets with limited mobility and dense prosthetic calcification. * Sever prosthetic aortic valve stenosis is present. * The peak CW velocity across the aortic valve =4.8 m/s. * The mean AV gradient =57 mm Hg. * The calculated MILENA=0.75 cm2. * Mild intrinsic prosthetic aortic regurgitation is present. * Compared to the prior study completed on 05/01/17 , there has been an interval increase in the severity of the aortic valve stenosis based on the Doppler data. Consultations: Cardiology Pending Studies/Follow-Up: Follow up with Dr Rausch for Primary Care on Jul 26, 2017 at 12:45pm Follow up with your Executive Chairman Of The Board on Jul 24, 2017 at 9:20AM Get cardiac catheterization with Dr. Brandon Winston on 07/25/2017 as advised Seek immediate medical attention if your symptoms reoccur or worsen Medication changes: Your Coumadin was discontinued You are started on Aspirin 81mg daily Medication Reconciliation New Medications: Aspirin (Aspirin EC Low Dose) 81 Mg Ectab 81 MG PO QAM for 30 Days, #30 EA Continued Medications: Aripiprazole (Abilify) 2 Mg Tab 2 MG PO DAILY Atorvastatin (Lipitor) 40 Mg Tab 40 MG PO DAILY Bupropion (Wellbutrin) 100 Mg Tab 100 MG PO DAILY, TAB Buspirone Hcl (Buspar) 15 Mg Tab 15 MG PO BID Citalopram Hydrobromide (Citalopram Hydrobromide) 40 Mg Tab 40 MG PO DAILY Clindamycin Hcl (Cleocin) 300 Mg Cap 1 CAP PO before dentist for 7 Days, CAP Cyclobenzaprine Hcl (Flexeril) 10 Mg Tab 10 MG PO HS PRN for Muscle Spasms Cyclopentolate Hcl (Cyclogyl 1% Oph) 1 % Rosina 1 DROP OPR BID starting 2 weeks prior to surgery Docusate Sodium (Colace) 100 Mg Cap 1 CAP PO DAILY for Constipation for 15 Days, #15 CAP Insulin Regular (Human) (Humulin R U-500 (Concentr) 500 Unit/Ml Inj 200 UNITS SQ prior to meals plus 5 units for every 50 above 150 Lactic Acid (Ammonium Lactate) (Lac-Hydrin Twelve) 12 % Lot DAILY Apply to both feet daily Levothyroxine Sodium (Levothyroxine Sodium) 75 Mcg Tab 1 TAB PO DAILY for 30 Days, #30 TAB 5 Refills Meclizine Hcl (Meclizine Hcl) 25 Mg Tab 2 TAB PO BID PRN for Dizziness or Vertigo for 30 Days, #120 TAB Metformin Hcl (Glucophage) 1,000 Mg Tab 1000 MG PO BID, TAB Metoprolol Tartrate (Lopressor) (Lopressor) 100 Mg Tab 1 TAB PO DAILY for 30 Days, #30 TAB 5 Refills Naproxen (Naproxen) 500 Mg Tab 1 TAB PO BID for Pain for 30 Days, #60 TAB 1 Refill Pediatric Multiple Vitamin W/ (Flintstones Chewable) 1 Chw Chw 1 TAB PO QAM, TAB Pregabalin (Lyrica) 50 Mg Cap 50 MG PO BID, CAP Spironolactone (Spironolactone) 25 Mg Tab 0.5 TAB PO DAILY Torsemide (Demadex) 10 Mg Tab 10 MG PO DAILY, TAB Trazodone Hcl (Trazodone) 100 Mg Tab 100 MG PO HS PRN for Sleep Valsartan (Diovan) 40 Mg Tab 1 TAB PO DAILY for 90 Days, #90 TAB 1 Refill Discontinued Medications: Warfarin Sod (Coumadin) 5 Mg Tab 1 TAB PO DAILY Take one tab Mon & Fri. Take 1.5 tab on , Sun, , Sat, & Sun Admission Information HPI (per Admitting provider): Pt presents for direct admission under suggestion of Dr Muniz for continued SOB and possible repeat ALMA. Pt with hx aortic valve stenosis s/p bioprosthetic aortic valve replacement, HTN, hyperlipidemia, DM II, hypothyroidism, DANYELLE, neuropathy, anxiety and depression. Pt reports increased SOB with exertion for past month. Usually can walk approx 3 blocks and states now can only walk 1/2 block before she experiences SOB and palpitations described as heart pounding and racing. She reports resting 10-15 minutes before SOB and heart pounding sensation resolves. Also reports hx increased LE edema and approx 3 months ago she was switched from Lasix to Demadex 10mg and spironolactone 12.5mg. She states those med changes had resolution of LE edema, until past 3 weeks having some LE edema again. Reports 6lb increase in weight in the past week. Follows with Dr Muniz. Had ALMA 04/2017: severe bioprosthetic aortic stenosis. EF >70% . CT surgery recommended trial of Coumadin and repeat ALMA 2-3 months. Pt has been on Coumadin and states is taking regularly. Pt reports hx vertigo for years. Uses meclizine prn with moderate relief. Pt denies any worsening vertigo. Pt also reports hx anxiety and depression on medications and feels like fairly well controlled at this time. Denies suicidal or homicidal ideations. Pt reports hx chronic constipation. Uses Colace prn. Last BM this morning and reported as soft. Pt states last week had cough productive brown yellow sputum which is now resolving. Pt reports is to have cataract removal in couple of weeks and has been placed on Cyclogyl to R "pupil problem". Hx neuropathy with paresthesias to bilateral feet, denies any changes with this. Denies any recent vision changes. Denies fever/chills, diaphoresis, N/V/D, BONILLA, syncope, neck pain, CP, cough, sore throat, choking, otalgia, rhinorrhea, abdominal pain, extremity weakness, rashes, urinary symptoms. Pt was seen in ER yesterday. She had negative CXR and CT angio at that time, WBC : 11.4, INR: 1.8. She was d/c home. Physical Exam (per Admitting): General Appearance: no apparent distress, + obese Head: normocephalic, atraumatic Eyes: EOMI, sclerae normal, + pertinent finding (Right pupil dilated approx 4mm, reactive to light) ENT: hearing grossly normal, pharynx normal Neck: supple, no JVD, trachea midline Respiratory/Chest: chest non-tender, lungs clear, normal breath sounds, no respiratory distress, no accessory muscle use Cardiovascular: regular rate, rhythm, + systolic murmur Abdomen/GI: normal bowel sounds, non tender, soft Extremities/Musculoskelatal: normal capillary refill, normal range of motion , non-tender, + pedal edema (mild) Neurologic/Psych: alert, normal mood/affect, oriented x 3 Skin: normal color, warm/dry, + pertinent finding (+healed surgical scars to chest midline and bilateral anterior chest, several to abdomen. bilateral toes rough erythematous skin noted, no skin openings noted, non-tender. no discharge) Hospital Course Possible bioprosthetic aortic valve stenosis and superimposed CAD H/O Chronic diastolic heart failure H/O B/L breast carcinoma with B/L mastectomies and radiation S/P AVR in Oct 2010 at [facility] Receiving a #25 bio AVR at that time. Last ECHO in Apr 2017: EF>70%; Severe prosthetic aortic valve stenosis Presented with worsening SOB on exertion CXR: no acute process and CTA: negative for PE yesterday on 07/17/17 ALMA ON 07/09/17: consistent with severe bioprosthetic aortic valve stenosis Plan to resume diuretics upon discharge Started on Aspirin and planned to discontinue Coumadin per cardiology recommendations Appreciate cardiology Input (Coumadin was initiated to see if this would perhaps alleviate the obstruction of the bioprosthetic aortic valve but as Aortic valve prosthesis remained severely stenotic, Coumadin was discontinued) Planned for outpatient diagnostic cardiac catheterization with Dr. Brandon Winston to exclude underlying CAD,prior to cardiothoracic surgery consultation on 07/25/2017. DM II Last A1c: 6.6 on 03/21/17 A1c: 6.4 hold metformin ISS, Humulin-R, Accu checks DANYELLE CPAP qHS Hypothyroidism TSH: 2.5 continue levothyroxine HTN stable Continued metoprolol 50mg BID per cards Hold diuretics continue valsartan HYPERLIPIDEMIA continue Lipitor NEUROPATHY continue lyrica DEPRESSION/ANXIETY continue Abilify, Wellbutrin, Buspar, celexa Trazodone HS prn DVT PX SCD/warfarin held Code Status: Full Code DISPOSITION Monitor in Tele Plan to discharge home today Follow up with Dr Rausch for Primary Care on Jul 26, 2017 at 12:45pm Follow up with your Executive Chairman Of The Board on Jul 24, 2017 at 9:20AM Get cardiac catheterization with Dr. Brandon Winston on 07/25/2017 as advised Seek immediate medical attention if your symptoms reoccur or worsen Medication changes: Your Coumadin was discontinued You are started on Aspirin 81mg daily Total time spent on discharge = 35 minutes This includes examination of the patient, discharge planning, medication reconciliation, and communication with other providers. Discharge Instructions Discharge Instructions Date of Service Jul 19, 2017. Admission Reason for Admission: SOB Discharge Discharge Diagnosis / Problem: Severe Aortic Stenosis Discharge Goals Goal(s): Decrease discomfort, Improve function Activity Recommendations Activity Limitations: per Instructions/Follow-up section Lifting Limitations: gradually increase as tolerated Exercise/Sports Limitations: gradually increase as tolerated . Instructions / Follow-Up Instructions / Follow-Up Follow up with Dr Raucsh for Primary Care on Jul 26, 2017 at 12:45pm Follow up with your Executive Chairman Of The Board on Jul 24, 2017 at 9:20AM Get cardiac catheterization with Dr. Brandon Winston on 07/25/2017 as advised Seek immediate medical attention if your symptoms reoccur or worsen Medication changes: Your Coumadin was discontinued You are started on Aspirin 81mg daily Current Hospital Diet Patient's current hospital diet: AHA Diet (Heart Healthy), Diabetes Type 2 Diet Discharge Diet Recommended Diet: AHA Diet (Heart Healthy), Diabetes Type 2 Diet Pending Studies Studies pending at discharge: no Laboratory Results Hemoglobin A1c Test 07/19/17 06:30 Range/Units Estimated Average Glucose 137 mg/dl Hemoglobin A1c 6.4 H 4.5-5.6 % Medical Emergencies . Who to Call and When: Medical Emergencies: If at any time you feel your situation is an emergency, please call 911 immediately. . Non-Emergent Contact Non-Emergency issues call your: Primary Care Provider, Executive Chairman Of The Board Call Non-Emergent contact if: you have a fever, your pain is not controlled, your pain is worsening, your pain is unusual for you, your pain is concerning you, you have any medication questions Seek immediate medical attention if your symptoms reoccur or worsen . . "Provider Documentation" section prepared by Nathanael Corado. . VTE Core Measure Inpt VTE Proph given/why not?: SCD's
--- NOTE | 2017-07-19 17:16 | TEE ---
*NOTICE TO RECEIVING DEMOCRAT AGENCY This information is strictly Confidential and protected under [place] law. [place] law prohibits you from making any further disclosure of this information unless further disclosure is expressly permitted by the written consent of the person to whom it pertains or is authorized by law. A general authorization for the release of medical or other information is not sufficient for this purpose. Hospital accepts no responsibility if the information is made available to any other person, INCLUDING THE PATIENT. Interpretation Summary * Name: BRIGIDA ROCA Study Date: 07/19/2017 08:11 AM BP: 117/75 mmHg * Patient Location: C.2E\S\E212\S\1 HR: 78 * : 1960 (M/d/yyyy) Gender: Female Height: 59 in * Age: 56 yrs Ethnicity: [place] Weight: 223 lb * Ordering Physician: Roberto Carlos Muniz * Referring Physician: Roberto Carlos Muniz D.O. * Performed By: Hayley Garcia [facility] * * Reason For Study: SHAW / PROSTHETIC AV STENOSIS * BSA: 1.9 m2 * -- Conclusions -- * There is severe concentric left ventricular hypertrophy. * The LV Ejection Fraction = 60-65%. * There is mild mitral regurgitation. * There is moderate tricuspid regurgitation. * The aortic root is normal size. * There is a bioprosthetic aortic valve. * The bioprosthetic leaflet analogous to the right coronary cusp opens , however, there is restricted excursion of the other two leaflets with limited mobility and dense prosthetic calcification. * Sever prosthetic aortic valve stenosis is present. * The peak CW velocity across the aortic valve =4.8 m/s. * The mean AV gradient =57 mm Hg. * The calculated MILENA=0.75 cm2. * Mild intrinsic prosthetic aortic regurgitation is present. * Compared to the prior study completed on 05/01/17 , there has been an interval increase in the severity of the aortic valve stenosis based on the Doppler data. Procedure Details * The study was performed in Cardiac Catheterization Lab. * Time out was conducted by the physician, nurse, and 3d technologist with positive identification of patient and procedure. * Informed consent for Transesophageal Echocardiogram was obtained prior to the procedure. * An intravenous line was placed. A topical anesthetic agent was used for oropharangeal anesthesia. A bite block was inserted. * Sedation performed by the anesthesia department. * The patient's vital signs, including blood pressure, heart rate, pulse oximetry and cardiac rhythm were monitored throughout the procedure . * A multifrequency, multiplane transesopheageal echocardiographic endoscope was inserted and manipulated in the standard fashion to achieve multiplane views. * The transesophageal probe was passed without difficulty. * The usual views were obtained; basal, mid-esophageal, transgastric and aortic views. * The patient tolerated the procedure well without evidence of orophangeal or esophageal trauma. * A 2D transesophageal echocardiogram with spectral and color flow Doppler was performed. * START TIME: 0810 PROBE IN: 0812 PROBE OUT: 0835 310 MG PROPOFOL was administered by anesthesia department. 40 MG LIDOCAINE was administered by anesthesia department. 500 MCG PHENYLEPHINE was administered by anesthesia department. * A 2D transesophageal echocardiogram with Doppler and color flow Doppler was performed. Left Ventricle * The left ventricle is normal in size. * There is severe concentric left ventricular hypertrophy. * Left ventricular systolic function is normal. * Ejection Fraction = 60-65%. * The left ventricular wall motion is normal. Right Ventricle * The right ventricle is normal in size and function. Atria * The left atrium is mildly dilated. * No left atrial mass or thrombus visualized. * No thrombus is detected in the left atrial appendage. * Right atrial size is normal. * The interatrial septum was not assessed on the present study, however, the interatrial septum was intact on the prior study dated 05/01/17 as asseded with the injection of agitated saline contrast at that time withou evidence for ASD or PFO. Mitral Valve * The mitral valve anatomy is normal. * There is no evidence of mitral valve prolapse. * There is no mitral valve stenosis. * There is mild mitral regurgitation. Tricuspid Valve * The tricuspid valve is normal. * There is no tricuspid stenosis. * There is moderate tricuspid regurgitation. * The calculated right ventriuclar systolic pressure is mildly elevated at 43 mm Hg. Aortic Valve * There is a bioprosthetic aortic valve. * The bioprosthetic leaflet analogous to the right coronary cusp opens , however, there is restricted excusion of the other two leaflets with limited mobility and dense prosthetic calcification. Sever prosthetic aortic valve stenosis is present. Mild intrinsic prosthetic aortic regurgitation is present. Pulmonic Valve * The pulmonic valve is not well seen, but is grossly normal. Great Vessels * The aortic root is normal size. * Very mild not mobile atheromatous disease was visualized in the descending thoracic aorta, aortic arch and ascending aorta, however, due to a technical difficulty the images were not stored for furture review. Pericardium * There is no pericardial effusion. MMode 2D Measurements and Calculations Ao root diam 2.8 cm Ao root area 6.2 cm\S\2 LVOT diam 1.8 cm LVOT area 2.7 cm\S\2 Doppler Measurements and Calculations Ao V2 max 479.4 cm/sec Ao max PG 91.9 mmHg Ao max PG (full) 84.8 mmHg Ao V2 mean 347.4 cm/sec Ao mean PG 57.4 mmHg Ao mean PG (full) 53.2 mmHg Ao V2 VTI 106.2 cm MILENA(I,A) 0.66 cm\S\2 MILENA(I,D) 0.66 cm\S\2 MILENA(V,A) 0.75 cm\S\2 MILENA(V,D) 0.75 cm\S\2 LV V1 max PG 7.1 mmHg LV V1 mean PG 4.2 mmHg LV V1 max 133.6 cm/sec LV V1 mean 97.5 cm/sec LV V1 VTI 26.2 cm SV(Ao) 663.2 ml SI(Ao) 343.4 ml/m\S\2 SV(LVOT) 70.0 ml SI(LVOT) 36.2 ml/m\S\2 TR max ewa 327.9 cm/sec
[2017-07-20] MEDS ORDERED: ASPIRIN 81 MG ECTAB PO SCH (09:00)
== END 2017-07-19 15:51 | disposition home or self-care (01) | DRG 316 ==
LOC: C.2E 11:42 → UNDOADMIN 11:42 → C.2E 12:10
PROVIDERS: ADMIT Family Medicine; ATTEND Internal Medicine
PROC: 5A2204Z Restoration of Cardiac Rhythm, Single (ICD-10-PCS; principal; 2017-07-19 07:30)
DX: T82.858A Stenosis of other vascular prosthetic devices, implants and grafts, initial encounter (principal); F32.9 Major depressive disorder, single episode, unspecified; F41.9 Anxiety disorder, unspecified; E78.5 Hyperlipidemia, unspecified; E11.9 Type 2 diabetes mellitus without complications; E03.9 Hypothyroidism, unspecified; I25.10 Atherosclerotic heart disease of native coronary artery without angina pectoris; G47.33 Obstructive sleep apnea (adult) (pediatric); Z85.3 Personal history of malignant neoplasm of breast; Z85.038 Personal history of other malignant neoplasm of large intestine; Z92.21 Personal history of antineoplastic chemotherapy; Z90.13 Acquired absence of bilateral breasts and nipples; Z90.49 Acquired absence of other specified parts of digestive tract; Z79.4 Long term (current) use of insulin; Z79.82 Long term (current) use of aspirin; Z79.899 Other long term (current) drug therapy; Z95.2 Presence of prosthetic heart valve; X58.XXXA Exposure to other specified factors, initial encounter; R06.00 Dyspnea, unspecified; R93.8 Abnormal findings on diagnostic imaging of other specified body structures; R16.1 Splenomegaly, not elsewhere classified; R00.8 Other abnormalities of heart beat; M79.89 Other specified soft tissue disorders; Z79.01 Long term (current) use of anticoagulants

== ENCOUNTER → 2017-07-25 | Day surgery (SDC) | payer OTHER ==
--- NOTE | 2017-07-24 17:35 | Cardiology Progress Note ---
"Cardiology Progress Note Date of Service Jul 24, 2017. Cardiology Progress Note Cardiology Pre Procedure History and Physical [facility] 07/24/2017 PCP: [place] [address] [phone] History of Present Illness: Jovita Rose is a 56 year old year old female who returns today in close cardiology follow-up seen at [facility]. I had seen her in recent hospital consultation on 05/18/2017 for complaint of progressive dyspnea with exertion. This is been ongoing for 6 to 12 months, but has gotten progressively worse especially over the last 4 weeks. She underwent a repeat transesophageal echocardiogram on 07/19/2017 that revealed worsening severe prosthetic valve aortic stenosis. She is tentatively scheduled to undergo diagnostic coronary angiography tomorrow on 07/25/2017 at [facility] with Dr. Brandon Winston, along with right heart catheterization given her history of sleep apnea and mildly elevated calculated pulmonary artery systolic pressures on her recent echocardiogram. I had initially seen the patient on 02/05/17 in outpatient cardiology consultation due to concerns of history of chronic diastolic heart failure with bioprosthetic aortic valve replacement in the past. At that time, she was seen in preoperative evaluation as she was interested in pursuing Aissatou-en-Y gastric bypass surgery. The patient had previously lived in [place], [place] and was followed at [facility]. She has a history of bilateral breast carcinoma with bilateral mastectomies and chest radiation. She has a history of bicuspid aortic valve stenosis. She underwent cardiac catheterization in September, which revealed no significant obstructive CAD, but findings of mildly elevated right heart and left heart pressures. She was subsequently referred for surgical aortic valve replacement which took place in October, at [facility] Receiving a #25 bio AVR at that time. A previous transthoracic echocardiogram had been performed in 2013 at that time it was noted that the study was very technically limited with poor acoustic windows due to her body habitus and previous breast surgeries. Appropriate bioprosthetic aortic valve function was noted at that time although as mentioned it was a technically limited study. The patient had since moved to [place] and has since moved back to [place] and has lived in [place] since November,. I had seen her in January, she complained of worsening shortness of breath. A transthoracic echocardiogram had been attempted as an outpatient in our office. It was technically insufficient to exclude prosthetic aortic valve stenosis or aortic valve regurgitation due to problems with poor acoustic windows related to her past breast surgery and body habitus. She therefore underwent transesophageal echocardiogram performed by the undersigned on 04/30/2017 with findings of prosthetic valve stenosis. The patient was placed on a trial of anticoagulation with Coumadin to see if the stenosis would improve with anticoagulation. The tentative plan was for her to see me in the office next week based on how she was feeling, I plan to repeat a transesophageal echocardiogram for reassessment of her valve disease. She however had called to the office on 2 separate occasions complaining of worsening shortness of breath. Recently her torsemide diuretic had been increased for 3 days. She stated that she fell as she urinated more but did not help her recent progressive symptoms. Review of Systems: A Complete Review of 10 Systems is as stated above or negative. Past Medical History: 1. Hypertension 2. Type 2 diabetes mellitus 3. Dyslipidemia 4. Aortic valve stenosis status post 25 mm bioprosthetic aortic valve replacement as noted above 5. Hypothyroidism 6. Breast carcinoma for which she underwent x-ray therapy, and chemotherapy 7. Colon cancer 8. Obstructive sleep apnea on CPAP 9. Obesity, body mass index greater than 40 Past Surgical History: 1. Status post bioprosthetic aortic valve replacement 2. Partial colectomy for stage I colon cancer 3. Bilateral mastectomies 4. Removal of right breast implant in 2009 due to infection, and this was not replaced 5. Hysteroscopy with biopsy 6. 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 cyclobenzaprine (FLEXERIL) 10 MG Tablet Take 1 Tab by mouth at bedtime as needed for Muscle spasms. atorvaSTATin (LIPITOR) 40 MG Tablet Take 1 Tab by mouth daily. To prevent heart attack/stroke, protect kidney, and cholesterol citalopram (CELEXA) 40 MG Tablet Take 1 Tab by mouth daily. cyclopentolate (CYCLOGYL) 1 % SOLN Instill 1 Drop into the right eye 2 times a day. starting 2 weeks before surgery. Blood Glucose Monitoring Suppl ([employer] ULTRA SYSTEM) w/Device KIT As directed Dx code: D11.9 MetFORMIN (GLUCOPHAGE) 1000 MG Tablet Take 1 Tab by mouth 2 times a day with morning and evening meals. ammonium lactate (LAC-HYDRIN) 12 % lotion Apply to both feet once daily. pregabalin (LYRICA) 50 MG Capsule Take 1 Cap by mouth 2 times a day. naproxen (NAPROSYN) 500 MG Tablet Take 500 mg by mouth 2 times a day as needed. spironolactone (ALDACTONE) 25 MG Tablet Take 0.5 Tabs by mouth daily. meclizine (ANTIVERT) 25 MG Tablet Take 2 Tabs by mouth 2 times a day. Insulin Regular Human, Conc, 500 UNIT/ML SOPN 200 units 30 min prior to meals, plus 5 units for every 50 above 150 Insulin Syringe/Needle U-500 31G X 6MM 0.5 ML MISC Use as directed. 3 injection daily ARIPiprazole (ABILIFY) 2 MG Tablet Take 1 Tab by mouth daily. levothyroxine (LEVOXYL) 75 MCG Tablet Take 1 Tab by mouth daily. (at least 30 min prior to breakfast or other meds) buPROPion (WELLBUTRIN) 100 MG Tablet Take 1 Tab by mouth daily. ONETOUCH DELICA LANCETS 33G MISC TEST 8 TIMES DAILY DIRECTED, E11.9, hypertension Glucose Blood (IntelligenceBankTOUCH ULTRA BLUE) STRP TEST 8 TIMES DAILY DIRECTED, E11.9, hypertension torsemide (DEMADEX) 10 MG Tablet Take 1 Tab by mouth daily. BD PEN NEEDLE MINI U/F 31G X 5 MM As directed valsartan (DIOVAN) 40 MG Tablet Take 1 Tab by mouth daily. Pediatric Rirwshaj-Tqdidkkc-V (FLINTSTONES COMPLETE) 60 MG chewable tablet Take 1 Tab by mouth daily. metoprolol tartrate (LOPRESSOR) 100 MG Tablet Take 1 Tab by mouth daily. glucose (BD GLUCOSE) 5 GM CHEW 3 every 15 minutes until glucose is > 100 mg/dL for hypoglycemia Naproxen Sodium (ALEVE) 220 MG Capsule Take 220 mg by mouth as needed for Pain or Pain, Mild (for generalized aches and pains). Clindamycin HCl 300 MG Capsule Take 300 mg by mouth. Before dentist traZODone (DESYREL) 100 MG Tablet At bedtime when needed DOCUSATE SODIUM 100 MG PO CAPS 1 daily ASPIRIN EC 81 MG PO TBEC 1 Tab Oral Daily OBJECTIVE/PHYSICAL EXAMINATION: BP 122/66 | Pulse 98 | Resp 18 | Wt 226 lbs 3.2 oz (102.604kg) | BMI 43.45 kg/m | BSA 2.09 m | LMP 04/07/2011 General: no acute distress and stated age Eyes: conjunctiva are pink and non-injected, sclera clear Neck: normal jugular venous pulse, no hepatojugular reflux Chest: normal shape and normal respiratory effort Lungs: clear to auscultation and percussion Cardiac Exam: - regular heart sounds, 2/6 ENEDINA Abdomen: abdomen soft, non-tender, no abnormal masses and no hepatosplenomegaly Musculoskeletal: no gait disturbance, no weakness Extremities: trace to 1+ ankle edema Neuro: grossly normal exam Psych: appropriate affect and insight. Data: EKG performed 07/17/2017 in the emergency department at [facility]: Normal sinus rhythm at 79 beats per minute, lateral T-wave change suggestive of possible ischemia Summary transesophageal echocardiogram performed 07/19/2017 : There is severe concentric left ventricular hypertrophy. The LV Ejection Fraction = 60-65%. There is mild mitral regurgitation. There is moderate tricuspid regurgitation. The aortic root is normal size. There is a bioprosthetic aortic valve. The bioprosthetic leaflet analogous to the right coronary cusp opens , however, there is restricted excursion of the other two leaflets with limited mobility and dense prosthetic calcification. Sever prosthetic aortic valve stenosis is present. The peak CW velocity across the aortic valve =4.8 m/s. The mean AV gradient =57 mm Hg. The calculated MILENA=0.75 cm2. Mild intrinsic prosthetic aortic regurgitation is present. Compared to the prior study completed on 05/01/17 , there has been an interval increase in the severity of the aortic valve stenosis based on the Doppler data. IMPRESSION: 56 year old year old female who complains of progressive exertional fatigue and shortness of breath. She states that she has limited her activity since her recent admission during which she underwent her transesophageal echocardiogram that confirmed the presence of severe prosthetic aortic valve stenosis. The patient had previously undergone bioprosthetic aortic valve replacement due to congenital bicuspid aortic valve stenosis, her history of chest radiation also likely contributed to her inital aortic stenosis And likely increases her risk of acquired CAD over time. RECOMMENDATIONS/PLAN: I had reviewed her clinical case and transesophageal echocardiogram with Dr. Ashraf of cardiothoracic surgery at [facility]. We plan to proceed with diagnostic cardiac catheterization including coronary angiography as well as right heart catheterization given her mildly elevated right heart pressures as detected on transesophageal echocardiogram. The patient 's surveillance of her aortic valve prosthesis over the years has been technically limited due to poor acoustic windows related to her past chest surgery with bilateral mastectomy and then reconstructive surgery. A transesophageal echocardiogram performed in April,suggested severe prosthetic stenosis. The patient was treated with a trial of anticoagulation, however the valve stenosis did not improve on anticoagulation and her symptoms have progressed. Repeat transesophageal echocardiogram performed on 07/19/2017 reveals progression of the valve stenosis. Therefore her Coumadin has been discontinued and aspirin has been resumed its place. Plan to proceed with diagnostic cardiac catheterization and workup toward surgical aortic valve replacement versus valve in valve transcatheter aortic valve replacement. Will refer patient to Dr Laird to discuss valve in valve TAVR. Roberto Carlos Muniz DO [facility], [address] [id number] This chart was completed in part utilizing [employer] Speech Voice Recognition Software. Grammatical errors, random word insertions, prounoun errors, and incomplete sentences are an occasional consequence of this system due to software limitations, ambient noise, and hardware issues. Any formal questions or concerns about the content, text, or information contained within the body of this dictation should be directly addressed to the provider for clarification."
[~2017-07-25] VITALS: Ht 149.9 cm; Wt 101.0 kg
[~2017-07-25] MED LIST changes: +ACETAMINOPHEN 325 MG TAB PO PRN; +ASPEC81 PO; +ATROPINE SULFATE 0.1 MG/ML 5ML SYR IV PRN; +BUPR-83 PO; -BUPR100T8 PO; +CYCL1SOL OPR; +DOCU-94 PO; +FENTANYL CITRATE INJ 50 MCG/1 ML 2 ML VIAL ONE; +HEPARIN SOD (PORCINE) 1000 UNIT/ML 10 ML VIAL ONE; +LACT12LO; +MIDAZOLAM HCL 1 MG/ML 2ML VIAL ONE; +NAPR500T3 PO; +NITROGLYCERIN/D5W 100MCG/ML 20ML SYR ONE; +NiCARDipine HCL INJ 2.5 MG/ML 10 ML AMP ONE; +ONDANSETRON INJ 2 MG/ML 2 ML VIAL IV PRN; +PEDICHW50 PO; +SODIUM CHLORIDE 0.9% 1000ML 250 ML IV PRN; -SPIR25TA PO; +SPR25 PO; +TORS10TA14 PO; -TORS20TA2 PO; +VALS40TA2 PO; -WARF5TAB90 PO
[2017-07-25 09:10] VITALS: BP 119/46; PULSE 76; TEMP 36.4; O2SAT 97; Ht 149.9 cm; Wt 101.0 kg
--- NOTE | 2017-07-25 10:50 | History & Physical Bridge Note ---
H&P Re-Evaluation Bridge Note: I have examined the patient, reviewed the History & Physical and in the interval since the performance of the History & Physical I have noted the following changes of clinical significance: No changes noted
--- NOTE | 2017-07-25 10:51 | Procedure Note ---
Pre-Mod Sedation Assessment General Date of Moderate Sedation: Jul 25, 2017. Vital Signs: Vital Signs Past 12 Hours Date Time Temp Pulse Resp B/P (MAP) Pulse Ox O2 Delivery O2 Flow Rate FiO2 07/25/17 09:10 36.4 76 20 119/46 97 Room Air Review Cardiovascular: regular rate, rhythm, no gallop, no JVD, + systolic murmur Abdomen: normal bowel sounds, non tender, soft Lungs: chest non-tender, lungs clear, normal breath sounds Pre-Sedation Airway Assessment Oral Cavity: WNL Short Thick Neck: Yes Hx of Sleep Apnea: Yes Smoking Status: Never Smoker Mallampati Classification: Class IV ASA Classification: Class III Procedure Planning Contraindications-for Mod Sed: None Yes Notes The planned sedation has been discussed with the patient and consent obtained. I have identified the patient, determined the appropriateness of sedation and have assessed the patient immediately prior to the procedure. All medicine(s) and interventions are by my order.
[2017-07-25 12:39] LABS: ISTAT ARTERIAL BLOOD GAS HCO3 25 meq/L (19-24); ISTAT ARTERIAL BLOOD GAS PCO2 50 mmHg (35-46); ISTAT ARTERIAL BLOOD GAS PO2 34 mmHg (80-95); ISTAT ARTERIAL BLOOD GAS pH 7.31 (7.35-7.45); ISTAT CARBON DIOXIDE 27 mEq/l (24-31)
--- NOTE | 2017-07-25 12:54 | Procedure Note ---
Post-Mod Sedation Assessment General Date of Moderate Sedation Jul 25, 2017. Vital Signs: Vital Signs Past 12 Hours Date Time Temp Pulse Resp B/P (MAP) Pulse Ox O2 Delivery O2 Flow Rate FiO2 07/25/17 12:40 68 16 111/47 (68) 94 Room Air 07/25/17 09:10 36.4 76 20 119/46 97 Room Air Review - Discharge Criteria Vital Signs Stable: Yes Alert/Oriented/Conversant: Yes Returned to Baseline Mental St: Yes Nausea Absent/Minimal: Yes Pain/Discomfort/Absent/Minimal: Yes Normal/Baseline Respirations: Yes Active Bleeding?: No Pt Received D/C Instructions: Yes Prescriptions Given: None Specific Proced. D/C Criteria Distal Pulses Present (Cardiac: Yes Groin site assessed-Card Cath: N/A Voided Prior To Discharge: N/A Discharged Patients Adult Escort/Transportation: Yes
[2017-07-25 12:56] LABS: ISTAT ARTERIAL BLOOD GAS HCO3 25 meq/L (19-24); ISTAT ARTERIAL BLOOD GAS PCO2 49 mmHg (35-46); ISTAT ARTERIAL BLOOD GAS PO2 51 mmHg (80-95); ISTAT ARTERIAL BLOOD GAS pH 7.32 (7.35-7.45); ISTAT CARBON DIOXIDE 26 mEq/l (24-31)
--- NOTE | 2017-07-25 13:13 | Cardiac Catheterization ---
Procedure Note Procedure Date Jul 25, 2017. 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 Winston Croze Cutter Helper(s) Grace FLOREZ Estimated Blood Loss Medication(s) Heparin, Nicardipine, Versed, Lidocaine 1% Summary of Findings No significant CAD with mild luminal irregularities. Hemodynamics Rest Ao: 104/46/75 Final Ao: 99/56/78 LV: N/A RA: 12 RV: 35/1/9 PA: 36/10/23 PA oxygen saturation 58% CO 4.9 L/min CI 2.5 L/min/m2 QpQs 1.0 PW: 12 Recommendations valve replacement Specimens None Radiation Exposure (mGy) 2081 Contrast (mls) 120 Anesthesia Moderate Sedation. Start 1158. End 1240. Procedural Complication(s) None Disposition Casket Trimmer Holding/Recovery ACC Data Cardiac Status Clinical evaluation leading to the procedure CAD Presntation: Unstable angina Anginal Classification: CCS III Heart Failure: NYHA Class: CCS III Cardiogenic Shock w/in 24Hrs: No Cardiac Arrest w/in 24Hrs: No Imaging studies past 6 months: Yes Stress studies past 6 months: No Coronary Anatomy Dominant: Co-dominant Left Main (% Stenosis): Normal LAD (% Stenosis): Normal D1 (% Stenosis): Normal Circumflex (% Stenosis): Normal OM1 (% Stenosis): Ostial (Large bircating vessels.), Distal (10%) OM2 (% Stenosis): Normal L PDA (% Stenosis): Normal RCA (% Stenosis): Normal R PDA (% Stenosis): Distal (10%) R PL1 (% Stenosis): Normal AM (% Stenosis): Normal Closure Device Percutaneous Entry Location: Radial Closure Device: Radial Band Intraprocedure Events Significant Dissection: No Perforation: No
--- NOTE | 2017-07-25 13:16 | Discharge Instructions ---
Discharge Instructions Procedure Procedure Date: Jul 25, 2017. Reason for Visit: Aortic Stenosis *Dr Winston To Do. Discharge Discharge Date: Jul 25, 2017. Discharge Diagnosis: status post cardiac catheterization. Last Recorded Wt (Kilograms): 101 Anesthesia Post Anesthesia Instructions: If you have had General Anesthesia or IV Sedation: * Do not drive today. * Resume driving when surgeon permits. * Do not make important decisions or sign legal documents today. * Call surgeon for: 1. Temperature elevations greater than 101 degrees F. 2. Uncontrollable pain. 3. Excessive bleeding. 4. Persistent nausea and vomiting. 5. Medication intolerance (nausea, vomiting or rash). * For nausea and vomiting use only clear liquids such as: tea, soda, bouillon until nausea subsides, then gradually increase diet as tolerated. * If you have any concerns or questions, call your surgeon's office. If physician is unavailable and it is an emergency, call 911 or go to the nearest emergency room. Instructions Activity Recommendations: limitations as noted below Return to School/Work: with the following limitations Recommended Home Diet: low sodium, low cholesterol Allergies: Coded Allergies: Lisinopril (Verified Allergy, Unknown, unk, 07/25/17) Penicillins (Verified Allergy, Unknown, ., 07/25/17) Uncoded Allergies: PENICILLIN (Allergy, Unknown, unk, 05/01/17) Provider Instructions ACTIVITY RECOMMENDATIONS: Excess manipulation of the wrist should be avoided for the next 24-48 hours. * No lifting over 2 pounds (approximately a 1/2 gallon of milk) with the utilized arm for 24 hours. * No strenuous activity such as bowling or tennis for 3 days. * Keep the site of the procedure covered with a bandage for 24 hours. *You may shower the day after the procedure. Do not take a tub bath or submerge the puncture site in water for the next 3 days. *Do not operate any motorized equipment for 3 days. SPECIAL CARE INSTRUCTIONS: The site may be slightly bruised and sore following your procedure. Should any of the following occur, contact the DrKayla who performed your procedure. 1. Redness/inflammation, swelling, chills, or fever, or colored drainage at procedure site within 3-7 days after your procedure. 2. Coldness, discoloration, ongoing numbness, severe pain, or swelling. Expect mild tingling of hand and tenderness at the puncture site for up to three days. If this persists beyond three days, or other symptoms develop, notify the Dr. who performed your procedure. BLEEDING: If the procedure site on your wrist begins to bleed, do not panic 1. Place 1 or 2 fingers firmly just slightly above the insertion site to stop the bleeding. You may be able to feel your pulse as you hold pressure. 2. Lift your finger after 5 minutes to see if the bleeding has stopped. 3. Once the bleeding has stopped, gently wipe the wrist area clean with a bandage. * If the bleeding from your wrist does not stop after 10 minutes, or if there is a large amount of bleeding or spurting, call 911 (do not drive yourself to the hospital). SKIN IRRITATION: * You may experience some redness and/or swelling in the area where radiation was administered. If any skin irritation occurs, please contact your family physician. FOLLOW UP VISIT: Keep any scheduled doctor appointments. Follow Up Follow-up with: Dr. Muniz as scheduled [facility] Recommendations: Call your doctor if: * Temperature above 101 degrees * Pain not relieved by pain medicine ordered * There is increased drainage or redness from any incision * You have any unanswered questions or concerns. Your Doctors Instructions noted above were prepared by provider Brandon Winston. Patient Signature Section: Patient Instructions Signature Page Jovita Rose Patient (or Guardian) Signature/Date: I have read and understand the instructions given to me by my caregivers. Caregiver/RN/Doctor Signature/Date: The above-named patient and/or guardian has received patient instructions on this date. + Original Patient Signature Page (only) stays with chart. Please make copy for patient.
[2017-07-25 15:00] VITALS: BP 124/66; PULSE 68; O2SAT 96
== END | disposition home or self-care (01) ==
LOC: C.CATH 08:48
PROVIDERS: ATTEND Specialist
DX: I25.10 Atherosclerotic heart disease of native coronary artery without angina pectoris (principal); I10 Essential (primary) hypertension; E11.9 Type 2 diabetes mellitus without complications; E78.5 Hyperlipidemia, unspecified; I35.0 Nonrheumatic aortic (valve) stenosis; G47.33 Obstructive sleep apnea (adult) (pediatric); E03.9 Hypothyroidism, unspecified; E66.9 Obesity, unspecified; Z68.41 Body mass index [BMI] 40.0-44.9, adult; Z85.3 Personal history of malignant neoplasm of breast; Z85.038 Personal history of other malignant neoplasm of large intestine; Z95.2 Presence of prosthetic heart valve; Z90.13 Acquired absence of bilateral breasts and nipples

== ENCOUNTER → 2017-08-30 | Outpatient (CLI) | payer OTHER ==
[~2017-08-30] MED LIST changes: -ACETAMINOPHEN 325 MG TAB PO PRN; -ATROPINE SULFATE 0.1 MG/ML 5ML SYR IV PRN; -FENTANYL CITRATE INJ 50 MCG/1 ML 2 ML VIAL ONE; -HEPARIN SOD (PORCINE) 1000 UNIT/ML 10 ML VIAL ONE; -MIDAZOLAM HCL 1 MG/ML 2ML VIAL ONE; -NITROGLYCERIN/D5W 100MCG/ML 20ML SYR ONE; -NiCARDipine HCL INJ 2.5 MG/ML 10 ML AMP ONE; -ONDANSETRON INJ 2 MG/ML 2 ML VIAL IV PRN; -SODIUM CHLORIDE 0.9% 1000ML 250 ML IV PRN
--- NOTE | 2017-08-31 06:17 | PAP/PSG TECHNICIAN REPORT ---
[facility] Linoleum Installer Polysomnogram Report Study name: None Report date: 08/31/2017 Study date: 08/30/2017 Referring Physician: DR.MARY EDMONDS Name: BRIGIDA ROCA Interpreting Physician: Gigi Selby M.D. Date of : 1960 Linoleum Installer: Jacki Luciano RPSGT. Sex: Female Age: 56 StudyType: PSG Weight: 230 lbs Height: 56 years, Height 4' 11" Neck Circum: 18.25in. BMI: 46.45 Medications: Buspar 15mg, Flexeril 10mg, Lipitor 40mg, Celexa 40mg, Cyclogyl 1% soln, Glucophage 1000mg, Lac-Hydrin 12%, Lyrica 50mg, Naprosyn 500mg, Aldactone 25mg, Antivert 25mg, Insulin, Abilify 2mg, Levoxyl 75mcg, Wellbutrin 100mg, Demadex 10mg, Diovan 40mg, Cutler vitamin, Lopressor 100mg, BD Glucose 5gm, Aleve 220mg, Clindamycin HCl 300mg, Desyrel 100mg, Docusate Sodium 100mg, ASA 81mg Patient History Study started on room air with ETCO2 monitoring in room #6. 56 yr old female here tonight for a possible split psg. She has been using cpap at a setting of 10cwp for 10 years. She is in need of a new machine, hose and mask. She has EDS and stated that she has been having sleep paralysis, hypnagogic hallucinations and sleep attacks. Her ESS=21/24. Neck circ=18.25inches Parameters Monitored NPSG: E1-M2, E2-M1, Fp1-M2, Fp2-M1, F3-M2, F4-M2, F4-M1, C3-M2, C4-M2, C4-M1, O1-M2, O2-M2, O2-M1, T3-M2, T4-M1, P3-M2, P4-M1, CHIN1, CHIN2, HR, EKG, Legs, PFLOW, SNOR, FLOW, CFLOW, Tidal Volume, THOR, ABDO, SpO2, PLTH, CPRESS, ETCO2 Wave, ETCO2, pH Sleep Architecture Sleep Stages Time at Lights Off 10:52:53 PM STAGES Time (min.) TST (%) Time at Lights On 1:12:53 AM Wake 22.5 -- Total Recording Time (TRT) 395.00 min. N1 6.5 2 Total Sleep Period (TSP) 381.0 min. N2 81.0 22 Total Sleep Time (TST) 372.0min. N3 144.5 39 Awake Time 22.5 min. REM 140.0 38 Wake after Sleep Onset 9.0 min. Sleep Efficiency (SE) 94 % Sleep Onset Latency (SWETA) 13.5 min. Number of Stage 1 Shifts None Awakenings 11 Stage Changes 53 Number of REM periods 5 REM 140.0 38 REM Latency 104.0 min. NREM 232.0 62 Body Position Analysis Supine Right Left Side Prone Vertical Total Sleep Time (min.) 394.5 0.0 0.0 0.00 0.0 0.0 Total Sleep Time (%) 100% 0% 0% 0 0% N/A% Total Sleep Time REM (min.) 140.0 0.0 0.0 None 0.0 0.0 Total Sleep Time NREM (min.) 232.0 0.0 0.0 None 0.0 0.0 Intermittent Wake (min.) 22.5 0.0 0.0 None 0.0 0.0 Total Sleep Period (%) 100% None None None None None Arousals Myoclonus (PLM) * Events Count Index Events Count Index Spontaneous 11 2 Events Awake (PLMW) 31 82.7 Respiratory 27 4.8 Events Asleep w/ Arousal (PLMA) 6 1.0 PLM 6 1 Events Asleep w/o Arousal (PLMS) 36 5.8 Snoring 3 0 Total Asleep 42 6.8 Total 47 8 Total 73 11 Respiratory Analysis * CA OA MA CH H RERA Total Count 0 24 0 0 131 0 155 Index 0.0 3.9 0.0 0 21.1 0 25.0 Mean Duration 0.0 21.5 0.0 0.00 23.3 0.0 23.0 Longest Duration 0.0 55.6 0.0 0.00 0.0 0.0 74.1 Respiratory Event Summary Total Supine ~Supine Right Left Prone REM NREM Apneas Count 24 24 N/A N/A N/A N/A 1 23 Index 3.9 4 N/A N/A N/A N/A 0 6 Hypopneas (4% Desat) Count 131 131 N/A N/A N/A N/A 3 128 Index 21.1 21.1 N/A N/A N/A N/A 1.3 33.1 Apneas & All Hypopneas Count 155 155 N/A N/A N/A N/A 4 151 Index 25.0 25 N/A N/A N/A N/A 1.7 39.1 Respiratory Events ([employer] Curator+All Hyp+RERA) Count 155 155 N/A N/A N/A N/A 4 151 Index 25.0 25 N/A N/A N/A N/A 1.7 39.1 Respiratory Related Arousal Count 27 155 N/A N/A N/A N/A 0 30 Index 4.8 5 N/A N/A N/A N/A 0 8 Snoring Analysis Supine Right Left Prone REM NREM Total Snore duration 13.9 min Snores count 816 N/A N/A N/A 40 776 816 Snore mean duration 1.0 Sec Snores index 132 N/A N/A N/A 17.1 200.7 131.6 TST with snoring (%) 3.7% Desaturation Event Summary: Minimum %SpO2 Event Count Mean/Min/Max Duration(sec.) Desaturation Index % Time In Bed > 90 24 33.9 / 7.8 / 60.0 25.0 14.6 86 - 90 248 22.2 / 5.0 / 59.5 69.0 54.6 81 - 85 84 19.4 / 5.8 / 59.0 76.9 16.6 76 - 80 10 15.6 / 5.8 / 27.8 14.1 10.8 71 - 75 0 N/A 0.0 3.2 66 - 70 0 N/A 0.0 0.2 61 - 65 0 N/A 0.0 0.0 56 - 60 0 N/A 0.0 0.0 51 - 55 0 N/A 0.0 0.0 < 50 0 N/A 0.0 0.0 Total REM NREM Awake <50% 0.0 min. 0.0 min. 0.0 min. 0.0 min. 51 - 60% 0.0 min. 0.0 min. 0.0 min. 0.0 min. 61 - 70% 0.8 min. 0.0 min. 0.6 min. 0.2 min. 71 - 80% 55.2 min. 2.2 min. 51.9 min. 1.1 min. 81 - 90% 281.0 min. 92.8 min. 171.2 min. 17.0 min. 91 - 100% 57.6 min. 45.0 min. 8.3 min. 4.2 min. Average 86 89 84 88 Minimum SpO2 68 77 68 68 Desaturation Event Index 44.3 18.4 63.6 8.0 # Desat. Events below 89% 287 41 244 2 Time(%) with Saturation below 89% 62.3 12.1 47.6 2.7 Time(min.) with Saturation below 89% 245.9 47.6 187.8 10.5 Time (mins) REM (mins) NREM (mins) % of TST SpO2 Below 90% 289 43 N246 75.6 SpO2 Below 88% 105 0 0 52 Heart Rate Analysis Min (bpm) Max (bpm) Average (bpm) Awake 70 100 84 NREM 68 98 85 REM 68 92 76 Overall 68 98 82 Supplemental O2 Values Minimum O2 level: None Value Start Time End Time Linoleum Installer Comments Mrs. Roca slept in the supine position with the head of her bed slightly elevated. No cardiac arrhythmia noted. Some leg movements noted. No bruxism noted. Snoring was noted and scored as a 2 on a scale of 1 through 5. (0=no snoring, 5=snoring loud enough to be heard through a closed door or down the haz[address] way) At 1:30am she had met specific Split-Night criteria during the diagnostic portion of this study. CPAP was initiated at +[id number] and up-titrated to an optimal level of +[id number]. At 5:23 1lpm oxygen was added. Oxygen saturations were under 89% for 47.8 minutes on a setting of 16cwp with an AHI of 3.4 for 126.7 minutes. A medium Simplus full face mask by Patrica was used during titration. She awoke to use the restroom 1 time during the night. She stated that she slept well. The final report will be interpreted and signed by a sleep physician. The completed physician report will then be placed in the patient medical record. Therapy Event: Therapy (cm H20) 0 8 10 12 14 16 Total Time at Pressure (min.) 140.0 16.0 32.3 23.2 32.8 150.2 TST at Pressure (min.) 120.5 16.0 32.3 23.2 32.8 147.2 # Periods 1 1 1 1 1 1 Sleep Onset (min.) 13.5 0.0 0.0 0.0 0.0 0.0 REM Onset (min.) N/A N/A N/A N/A 32.5 0.0 Sleep Efficiency % 86 100 100 100 100 98 Wakefulness (%) 13.9 0.0 0.0 0.0 0.0 2.0 Wakefulness (min.) 19.5 0.0 0.0 0.0 0.0 3.0 NREM 1 (%) 1.8 0.0 0.0 0.0 0.0 2.7 NREM 1 (min.) 2.5 0.0 0.0 0.0 0.0 4.0 NREM 2 (%) 32.5 72.0 0.0 15.0 51.9 2.3 NREM 2 (min.) 45.5 11.5 0.0 3.5 17.0 3.5 NREM 3 (%) 51.8 28.0 100.0 85.0 47.3 0.0 NREM 3 (min.) 72.5 4.5 32.3 19.7 15.5 0.0 REM (%) 0.0 0.0 0.0 0.0 0.8 93.0 REM (min.) 0.0 0.0 0.0 0.0 0.3 139.7 # Arousals 39 0 1 2 3 2 Arousal Index 19.4 0.0 1.9 5.2 5.5 0.8 # Snore 647 52 16 6 39 56 Snore Index 322.2 195.2 29.7 15.5 71.4 22.8 AHI 61.7 15.0 20.4 12.9 7.3 2.9 AHI Supine 61.7 15.0 20.4 12.9 7.3 2.9 AHI Non-Supine N/A N/A N/A N/A N/A N/A NREM AHI 61.7 15.0 20.4 12.9 7.4 24.0 REM AHI N/A N/A N/A N/A 0.0 1.7 RDI 61.7 15.0 20.4 12.9 7.3 2.9 # Obstructive 20 2 0 0 1 1 # Central Ap 0 0 0 0 0 0 # Mixed 0 0 0 0 0 0 # Hypopneas 104 2 11 5 3 6 RERAS 0 0 0 0 0 0 Total Respiratory Events 124 4 11 5 4 7 Time Below SpO2 89.00% (min.) 103.2 15.5 31.6 22.8 13.8 48.4 Mean NREM SpO2 (%) 84 86 83 81 88 91 Mean REM SpO2 (%) N/A N/A N/A N/A 89 89 Mean Sleep SpO2 (%) 84 86 83 81 88 89 Min NREM SpO2 (%) 68 77 71 73 74 87 Min REM SpO2 (%) N/A N/A N/A N/A 89 77 Position Supine (min.) 120.5 16.0 32.3 23.2 32.8 147.2 Position Non-supine (min.) 0.0 0.0 0.0 0.0 0.0 0.0 LM Index Sleep 9.5 15.0 1.9 2.6 22.0 2.0 LM Index NREM 9.5 15.0 1.9 2.6 22.1 0.0 LM Index REM N/A N/A N/A N/A 0.0 2.1 Mean Heart Rate (bpm) 88 86 86 85 76 76 Min Heart Rate (bpm) 79 82 81 80 68 68
--- NOTE | 2017-09-03 12:45 | POLYSOMNOGRAPH REPORT ---
CLINICAL DATA: A 56-year-old female with BMI of 46.[address] Nath and Dr. Ballard for a split night sleep study. She has been using CPAP at 10 cm of water pressure for 10 years. She has had an excessive daytime sleepiness, sleep paralysis, hypnagogic hallucinations, and sleep attacks. Her [place] sleepiness score is 21/24. SLEEP ARCHITECTURE: Total sleep period was 381 minutes. Total sleep time was 372 minutes divided between 232 minutes of non-REM sleep and 140 minutes of REM sleep. Sleep onset latency was 13.5 minutes. REM latency was 104 minutes. Sleep efficiency was 94%. Wake after sleep onset was 9 minutes. Sleep consisted of stage N1 2%, stage N2 22%, stage N3 39% and REM 38%. AROUSAL DATA: Forty seven arousals recorded for an index of 8 per hour. PERIODIC LIMB MOVEMENT DATA: Forty two limb movements during sleep were noted for an index of 6.8 per hour with arousal index of 1 per hour. RESPIRATORY DATA: Moderate DANYELLE was documented. The AHI was 25. There were 24 obstructive apneic episodes. The longest apneic episode was 55.6 seconds. There were 131 hypopneic episodes with a mean duration of 23.3 seconds. OXIMETRY DATA: Significant nocturnal hypoxemia was seen. Oxygen khadijah was 68%. Mean saturation was 86%. Time below 88% was 105 minutes. EKG: Heart rates ranged from 68-98 beats per minute. No arrhythmias were noted. GELATIN POWDER MIXER'S COMMENTS AND TREATMENT SUMMARY: The patient slept supine with the head of her bed slightly elevated. Snoring was moderate, rated 2 on a scale of 1-5. At 1:30 a.m., she met split night criteria. CPAP was started and was titrated up to a final pressure setting of 16 cm of water pressure. At 5:23 a.m., 1 liter per minute oxygen was added since the patient continued to have nocturnal hypoxemia in spite of control of her sleep apnea with CPAP. A medium Simplus full face mask by Patrica was used. IMPRESSION: Severe obstructive sleep apnea/hypopnea with a diagnostic AHI of 61.7 corrected with CPAP 16 cm of water pressure oxygen, 1 liter per minute. At her final pressure setting, the patient slept for 147 minutes with an apnea-hypopnea index of 2.9. RECOMMENDATIONS: The patient should be started on CPAP 16 cm water pressure with above noted interface and 1 liter oxygen at night. Followup in 90 days to document efficacy and compliance is recommended. MTDD
== END | disposition home or self-care (01) ==
LOC: C.NEUR 21:00
PROVIDERS: ATTEND Nurse Practitioner Family
DX: G47.33 Obstructive sleep apnea (adult) (pediatric) (principal)

== ENCOUNTER 2019-05-02 14:38 | Inpatient (IN) ==
--- OUTSIDE RECORDS SUMMARY | 2019-05-02 14:41 | External Medical Summary | Continuity of Care Document ---
:1960 Author Name Grant Cook, Provider Address Unavailable Unavailable , Care Team Providers Name Role Phone Sola Cook, [email or web address] PCP, UNKNOWN Unavailable Unavailable Problems Active medical history not documented Allergies and Adverse Reactions Allergy history not documented Medications Medications not documented Procedures Procedures not documented Immunizations Immunizations not documented Plan of Treatment Planned Observations Planned Goals not documented Results No Known Results Results not documented
[2019-05-02] MEDS ORDERED: SODIUM CHLORIDE 0.9% 1000ML 1,000 ML IV SCH ×2 (15:15)
[2019-05-02] MEDS ORDERED: ACETAMINOPHEN 1,000 MG/100 ML VIAL IV STA (15:20)
--- NOTE | 2019-05-02 15:33 | XRay Report ---
XR chest 1V portable HISTORY: 58 years-old Female Sepsis acute sepsis COMPARISON: CTA of the chest 07/18/2017, chest radiograph 07/17/2017 TECHNIQUE: Portable AP view of the chest FINDINGS: Cardiac silhouette is enlarged. Prior median sternotomy with prosthetic aortic valve. Pulmonary vascu lar congestion with mild interstitial coarsening. Asymmetric opacities about the left midlung and lef t lung base redemonstrated with radiodense structure projecting about the left breast. No pneumothora x or pleural effusion. Degenerative changes of the shoulders and spine. IMPRESSION: 1. Cardiomegaly with pulmonary vascular congestion. 2. Prior median sternotomy with prosthetic aortic valve. 3. Increased density of the left lung base redemonstrated likely secondary to summation density from asymmetric left breast augmentation/foil spinner. Superimposed airspace disease would be difficult to exc lude. The above report was generated using voice recognition software. It may contain grammatical, syntax o r spelling errors. Electronically signed by: Gerald Leslie M.D. 05/02/2019 3:32 PM
[2019-05-02 15:37] LABS: iSTAT Hemoglobin 11.2 g/dl (12.0-16.0); iSTAT Ionized Calcium 1.08 mmol/l (1.12-1.32); iSTAT Potassium 4.5 mEq/L (3.3-5.0)
[2019-05-02 15:42] LABS: Albumin Level 3.8 gm/dl (3.4-5.0); BUN Creatinine Ratio 23.1 (10-20); Bilirubin,Total 0.8 mg/dl (0.2-1); Calcium 9.4 mg/dl (8.5-10.1); Creatinine Clr Calc Pharmacy 45.4 ml/min; Est GFR (African American) 47.2; Est GFR (Non-African American) 40.7; Globulin 3.7 gm/dl (2.5-4.0); Potassium 4.4 mmol/L (3.5-5.1); Total Protein 7.5 gm/dl (6.4-8.2)
[2019-05-02 15:43] LABS: Base Excess VBG 7.7 mEq/L; Oxygen Saturation VBG 79.1 %; pH VBG 7.48 (7.36-7.41)
[2019-05-02] MEDS ORDERED: AZTREONAM 2,000 MG in DEXTROSE 5% 100 ML IV STA (15:45)
[2019-05-02] MEDS ORDERED: VANCOMYCIN HCL 2,000 MG in SODIUM CHLORIDE 0.9% 500 ML IV STA (15:46)
[2019-05-02 17:01] LABS: Appearance Urine Clear (Clear); Bilirubin Urine Negative (Negative); Blood Urine Negative (Negative); Color Urine Yellow; Glucose Urine UA 3+ (Negative); Ketones Urine Negative (Negative); Leukocyte Esterase Urine Negative (Negative); Nitrite Urine Negative (Negative); Protein Urine Negative (Negative); Specific Gravity Urine 1.018 (1.000-1.030); Urobilinogen Urine Negative (Negative)
[2019-05-02] MEDS ORDERED: INSULIN ASPART 100 UNITS/ML 3 ML PEN SC STA (17:14)
[2019-05-02 17:54] LABS: INR 1.1 (0.9-1.1); Partial Thromboplastin Ratio 0.9; Partial Thromboplastin Time 24.8 Seconds (21.0-31.0); Prothrombin Time 11.4 Seconds (9.0-12.0)
[2019-05-02] MEDS ORDERED: ACYCLOVIR SOD IV SCH (18:00)
[2019-05-02] MEDS ORDERED: DEXTROSE 5% IV SCH (18:00)
[2019-05-02 18:09] LABS: Basophils # (auto) 0.02 K/uL (0-0.2); Basophils % (auto) 0.6 %; Hematocrit (blood only) 35.3 % (37-47); Hemoglobin 11.7 g/dL (12.0-16.0); Immature Granulocytes # (auto) 0.03 K/uL (0.00-0.02); Lymphocytes # (auto) 0.86 K/uL (1.2-3.4); Lymphocytes % (auto) 27.3 %; Mean Corpuscular Hgb Conc 33.1 g/dL (32-36); Mean Corpuscular Volume 88.5 fL (80-100); Monocytes # (auto) 0.31 K/uL (0.11-0.59); Monocytes % (auto) 9.8 %; Neutrophils # (auto) 1.93 K/uL (1.4-6.5); Neutrophils % (auto) 61.3 %; Platelet Count 87 K/uL (130-400); Platelet Estimate Decreased (Normal); RDW Coefficient of Variation 15.9 % (11.5-14.5); RDW Standard Deviation 50.9 fL (36.4-46.3); Red Blood Count 3.99 M/uL (4.2-5.4); White Blood Count 3.15 K/uL (4.8-10.8)
--- NOTE | 2019-05-02 18:11 | History & Physical Report ---
Date of Service May 02, 2019 Assessment & Plan (1) Metabolic encephalopathy: (2) Severe sepsis: (3) Herpes zoster: This is a 58-year-old female who has a significant PMH of IDDM, chronic diastolic heart failure, severe aortic stenosis status post AVR in 2010 with revision of TAVR in 2018, HTN, DANYELLE on CPAP, depression with anxiety, schizoaffective disorder, CKD stage III, history of colon and breast CA in remission, cervical spine stenosis who presents to [facility] ED secondary to fever, ill feeling x1 day. Upon initial presentation patient met severe sepsis criteria per current CMS guidelines with tachycardia, leukopenia and altered mental status Blood cultures and urine cultures were obtained Patient received IV Vanco and Aztreonam for broad-spectrum IV antibiotic POC lactic acid was 3.8, repeat lactic acid was 4.0 She did not receive aggressive IVF/resuscitation per guidelines secondary to significant volume overload on exam Herpes Zoster noted on exam Source: Unknown - urine negative, CXR not consistent with PNA, ? secondary to herpes zoster vs bacteremia vs acute abdominal process Admit to telemetry PCU Continue broad-spectrum IV antibiotics with vancomycin, aztreonam and initiate IV Acyclovir Stat CT abd/pelvis given abd pain over LLQ vental hernia Lasix 40mg IV x 1 ordered in setting of volume overload hold of any further IVF resuscitation for now, lactic acid may also be elevated in setting of hypoxia Continue supplemental oxygen trend lactic acid q4 hr blood culture pending keep NPO until mentating more clearly, will hold PO meds for now, convert essential meds to IV (4) Acute decompensated heart failure: 2/2 diastolic CHF current weight 227lb volume overloaded on exam Lasix 40mg IV ordered, monitor volume status strict I and O, wilson placed daily weights HH, low sodium diet last echo 01/2019 revealed patent AVR, diastolic dysfunction (5) IDDM (insulin dependent diabetes mellitus): A1c 8.0 on 03/14 Patient significantly hyperglycemic in ED, BSG greater than 400 likely in setting of med noncompliance 10 units novolog given in ED consult glycemic pharmacist for assistance in setting of sepsis no HHS/DKA (6) CKD (chronic kidney disease) stage 3, GFR 30-59 ml/min: A/C CKD stage 3, baseline cr 1.1 in setting of volume overload/sepsis ? secondary to cardiorenal vs intravascular volume depletion follow labs (7) Thrombocytopenia: Plt 87 repeat CBC in a.m. may be in setting of sepsis (8) HTN (hypertension): Blood pressure elevated, likely in setting of volume overload on valsartan, torsemide - holding while encephalopathic (9) CAD (coronary artery disease): No chest pain Currently on ASA, statin, Plavix, beta-nayeli, valsartan resume once able to tolerate PO (10) Hypothyroidism: Continue levothyroxine, convert to IV for a.m. dose (11) DANYELLE (obstructive sleep apnea): CPAP at bedtime (12) Depression with anxiety: On Abilify, BuSpar mood stable (13) Dyslipidemia: on statin as outpatient (14) H/O aortic valve replacement: AVR in 2010 with redo in 2018 TAVR last echo 01/2019 EF 70% with G1DD, patent AVR (15) DVT prophylaxis: SQ heparin, PLT 87, monitor closely while on heparin Disposition: to be determined Follow up: PCP Dr. Rausch upon discharge Patient was seen and examined in collaboration with Dr. Corado, please see addendum History of Present Illness Chief Complaint: fever, ill feeling x 1 day. Primary Care Provider: Gregory Rausch MD This is a 58-year-old female who has a significant PMH of IDDM, chronic diastolic heart failure, severe aortic stenosis status post AVR in 2010 with revision of TAVR in 2018, HTN, DANYELLE on CPAP, depression with anxiety, schizoaffective disorder, CKD stage III, history of colon and breast CA in remission, cervical spine stenosis who presents to [facility] ED secondary to fever, ill feeling x1 day. Patient fiance is at bedside. Patient poor historian due to underlying illness and confusion. She admits to shortness of breath, increasing shortness breath with exertion, orthopnea, dry cough x2 days, chest pain with inspiration, fever, sweats, abdominal pain with known hernia. Noted symptoms started 1 day ago. Denies any chills, ligh theadedness, dyspnea, hemoptysis, nausea, diarrhea, melena, hematochezia, dysuria, increased urgency or frequency with urination. Poor p.o. intake in the past 24 hours. Denies taking insulin all problems today and unsure what she took for the past 2 days. He also complains of rash on her back. History/ROS likely unreliable due to patient's encephalopathy. Pt didn't weigh herself this morning. Unsure if weight gain. Allergies Allergy/AdvReac Type Severity Reaction Status Date / Time lisinopril Allergy Unknown unk Verified 07/03/18 07:56 Penicillins Allergy Unknown . Verified 07/03/18 07:56 adhesive tape Allergy CAN NOT Verified 05/02/19 17:36 TOLERATE BANDAIDS monosodium glutamate Allergy EDEMA OF Verified 05/02/19 17:36 HANDS & FEET Home Medications Home Medications Medication Instructions Recorded Confirmed Type ammonium lactate 1 applic TOPICAL BID 05/02/19 05/02/19 History aripiprazole [Abilify] 30 mg PO QAM 05/02/19 05/02/19 History aspirin [Aspir-81] 81 mg PO DAILY 05/02/19 05/02/19 History atorvastatin [Lipitor] 40 mg PO DAILY 05/02/19 05/02/19 History buspirone 15 mg PO BID 05/02/19 05/02/19 History chromium picolinate 200 mcg PO DAILY 05/02/19 05/02/19 History clopidogrel [Plavix] 75 mg PO DAILY 05/02/19 05/02/19 History cyclobenzaprine 10 mg PO HS PRN 05/02/19 05/02/19 History docusate sodium [Colace] 100 mg PO DAILY 05/02/19 05/02/19 History fluoxetine [Prozac] 20 mg PO DAILY 05/02/19 05/02/19 History furosemide [Lasix] 40 mg PO DAILY PRN 05/02/19 05/02/19 History hydrocortisone acetate [Anusol-HC] 25 mg NM HS 05/02/19 05/02/19 History insulin regular hum U-500 conc 255 unit SUBCUT AC 05/02/19 05/02/19 History [Humulin R U-500 (Conc) Kwikpen] levothyroxine 75 mcg PO DAILY 05/02/19 05/02/19 History meclizine 50 mg PO BID 05/02/19 05/02/19 History melatonin 15 mg PO HS 05/02/19 05/02/19 History metoprolol tartrate [Lopressor] 50 mg PO BID 05/02/19 05/02/19 History multivitamin 1 tab PO DAILY 05/02/19 05/02/19 History nystatin [Nyamyc] 1 applic TOPICAL TID 05/02/19 05/02/19 History omega 9-onj-vge-fish oil [Fish Oil] 1 cap PO DAILY 05/02/19 05/02/19 History peg 400-propylene glycol (PF) 1 drp OPHTHALMIC (EYE) UD PRN 05/02/19 05/02/19 History [Systane (PF)] pregabalin [Lyrica] 75 mg PO BID 05/02/19 05/02/19 History torsemide 20 mg PO BID 05/02/19 05/02/19 History valsartan [Diovan] 20 mg PO DAILY 05/02/19 05/02/19 History vitamin B complex 1 tab PO DAILY 05/02/19 05/02/19 History Past Med/Surg History Medical History CAD (coronary artery disease) (Chronic) Colon cancer (Resolved) Breast cancer (Resolved) Aortic valvar stenosis (Chronic) Cataract (Chronic) Dyslipidemia (Chronic) Heart failure (Chronic) HTN (hypertension) (Chronic) Hypothyroidism (Chronic) DANYELLE (obstructive sleep apnea) (Chronic) Depression with anxiety (Chronic) History of removal of breast implant (Chronic) "Left " Anxiety Aortic valve stenosis Breast cancer, right breast 2007--Sx, chemo/radiation Cardiac murmur Follows with Dr. Muniz Cataract of both eyes Colon cancer 2004--sx, no chemo or radiation Depression Diabetes mellitus, type 2 Hyperlipidemia Hypertension Hypothyroidism Liver cirrhosis non-alcoholic On anticoagulant therapy Sleep apnea Cpap Uterine cancer 2014--sx, no chemo/radiation Surgical History History of percutaneous coronary intervention (Chronic) prior to TAVR in order to protect her left main, she also had a 3.5 x 23 millimeter drug-eluting stent placed in the left main/LAD, which was expanded out into the aorta. H/O aortic valve replacement (Chronic) #25 Manga aortic valve bioprosthesis placed in 2010, and 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 On 11/06/2017 she underwent transcatheter aortic valve replacement receiving a 26 mm Hernandez-Bing S3 prosthesis History of carpal tunnel surgery of left wrist (Chronic) TAVR 2018 History of carpal tunnel surgery of right wrist (Chronic) Previous section (Chronic) H/O colonoscopy (Chronic) S/P mastectomy, bilateral (Chronic) History of partial colectomy (Chronic) History of appendectomy (Chronic) History of hysterectomy with bilateral oophorectomy (Chronic) H/O aortic valve replacement 06/2017 @ [facility] [place] H/O bilateral mastectomy 01/2008--breast cancer H/O breast biopsy right--malignant H/O breast surgery L implant infected and was removed History of appendectomy History of bilateral tubal ligation History of bowel resection 2004 @ [facility] [place] d/t Colon Cancer History of breast reconstruction Bilt breast after masectomy History of cardiac cath x2--2010 @ [facility] 07/2017 @ [facility]-no stent, follows with Dr. Muniz History of carpal tunnel release bilt History of section x4 History of colonoscopy History of dilatation and curettage History of esophagogastroduodenoscopy (EGD) History of open heart surgery 2011 @ [facility] [place] History of total abdominal hysterectomy and bilateral salpingo-oophorectomy 2014 D/T uterine cancer S/P foot surgery, right "foot was widening" Family History Grandmother Family history of diabetes mellitus maternal Family/Other Family history of diabetes mellitus paternal aunt Father , of premature CAD Coronary heart disease Mother , of premature CAD Coronary heart disease Social History Preferred Language: Latvian Communication Ability: Impaired Keg Raiser Required: No Beliefs That Will Affect Care: None marital status: Single marital status details: has fiance Current Living Situation: Alone Other Information That Helps Us Care for You: No Feels Safe at Home: Yes Safety Concerns: Feels Safe At This Time Smoking Status: Never smoker Second Hand Exposure: Yes (PARENTS SMOKE) ; Hx Alcohol Use: No Hx Substance Use: No Review of Systems Review of Systems: As noted per HPI, 10 systems reviewed and negative unless noted above. Physical Exam Physical Exam: Gen: Chronically ill, obese, F, appears acutely ill, NAD, sitting up in bed, but does become dyspneic with lying flat, confused but answers most questions appropriately Head: Normocephalic, Atraumatic, facial flushing Eyes: Sclera normal, no conjunctival injection, PERRLA, EOMI ENT: Gross hearing intact, normal pharynx, mucous membranes moist Neck: supple, no adenopathy, No JVD, no bruit, Resp: Clear to auscultation b/l, no wheeze, rales, rhonchi. 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, good machine tracer strength Extremities: significant +3 lower ext pitting edema b/l Skin: warm, moist, +erythematous, vesicular rash noted on R thoracolumbar region, negative turgor, cap refill < 2sec Neuro: Alert and oriented to self, speech normal but slow, flat mood/affect, cran nerve 2-12 intact grossly : deferred Results & Data Vital Signs (Past 12 Hours) Vital Signs Temp Pulse Pulse Resp BP BP Pulse Ox 05/02/19 17:23 95 05/02/19 16:51 37.5 C 115 H 22 166/75 H 95 05/02/19 14:40 38.2 C H 121 H 26 H 114/67 86 L Laboratory Results Short CBC 05/02/19 05/02/19 05/02/19 Range/Units 15:05 16:33 17:23 WBC Cancelled Cancelled 3.15 L Hgb Cancelled Cancelled 11.7 L Hct Cancelled Cancelled 35.3 L Plt Count Cancelled Cancelled 87 L BMP 05/02/19 15:05 Sodium 138 Potassium 4.4 Chloride 98 Carbon Dioxide 31 BUN 32 H Creatinine 1.40 H Glucose 394 H* Calcium 9.4 Liver Function 05/02/19 Range/Units 15:05 Total Bilirubin 0.8 (0.2-1) mg/dl AST 21 (15-37) U/L ALT 22 (12-78) U/L Alkaline Phosphatase 84 (45-117) U/L Albumin 3.8 (3.4-5.0) gm/dl Urine 05/02/19 Range/Units 15:43 Urine Color Yellow Urine Appearance Clear (Clear) Urine pH 8.0 H (4.5-7.5) Ur Specific [place] 1.018 (1.000-1.030) Urine Protein Negative (Negative) Urine Glucose (UA) 3+ H (Negative) Diagnostic Findings CXR: FINDINGS: Cardiac silhouette is enlarged. Prior median sternotomy with prosthetic aortic valve. Pulmonary vascular congestion with mild interstitial coarsening. Asymmetric opacities about the left midlung and left lung base redemonstrated with radiodense structure projecting about the left breast. No pneumothorax or pleural effusion. Degenerative changes of the shoulders and spine. IMPRESSION: 1. Cardiomegaly with pulmonary vascular congestion. 2. Prior median sternotomy with prosthetic aortic valve. 3. 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 Superimposed airspace disease would be difficult to exclude. Medications Administered Discontinued Medications Sodium Chloride (Nss 1000ml) 1,000 mls @ 100 mls/hr IV .Q10H EVGENY Stop: 06/01/19 15:14 Last Admin: 05/02/19 15:45 Dose: 100 mls/hr Documented by: [id number] Acetaminophen (Ofirmev) 1,000 mg in 100 mls @ 400 mls/hr IV NOW STA Stop: 05/02/19 15:34 Last Admin: 05/02/19 16:46 Dose: 400 mls/hr Documented by: [id number] Aztreonam 2,000 mg/ Dextrose 110 mls @ 110 mls/hr IV NOW STA Stop: 05/02/19 16:44 Last Admin: 05/02/19 17:22 Dose: 110 mls/hr Documented by: [id number] Insulin Aspart (Novolog Flexpen) 10 units SC ONE STA Stop: 05/02/19 17:15 Last Admin: 05/02/19 17:28 Dose: 10 units Documented by: [id number] Cosigned by: [id number] Code Status & VTE Plan Code Status Full Code VTE Prophylaxis Plan VTE Prophylaxis will be ordered: Yes Supervising Physician Co-Signing Physician Notes Patient is a 58-year-old female with history of diabetes, chronic diastolic heart failure, bioprosthetic aortic valve, schizoaffective disorder and other problems presents with history of confusion, dry cough, shortness of breath, fever, diaphoresis and abdominal pain since 1 to 2 days duration. History is limited secondary to patient's mental status. Please review HPI for complete details of presentation. Most of the history is obtained from patient's partner, ER physician and old records. Patient meets SIRS criteria--tachypneic, tachycardic,leukopenia, elevated lactate levels. She has been found to be in volume overload status, hypoxic, hypoglycemic. Also noted HEIDY, thrombo cytopenia. Normal procalcitonin levels. She admits to missing her medications intermittently. UA not suggestive of UTI. Chest x-ray suggestive of pulmonary vascular congestion. Increased density in the left lung base noted, superimposed airspace disease could be difficult to exclude. CT abdomen showed hepatosplenomegaly, hepatic steatosis, large ventral hernia, no bowel obstruction. On exam patient is obese, chronically appearing, no apparent distress, confused. Normocephalic atraumatic, lungs clear to auscultation, S1- S2,+ tachycardia, systolic murmur, abdomen--large ventral hernia, left lower quadrant tenderness, no rebound or guarding noted, bilateral lower extremity edema +3, alert, oriented to person, grossly no focal deficits, herpetic raised lesion noted on the right lower back. Patient is admitted for management of severe sepsis, metabolic encephalopathy, acute respiratory failure likely secondary to volume overload secondary to sepsis. Possible sources: Cannot rule out pneumonia, herpes zoster, ? Bacteremia. Will give IV diuretic and reassess volume status. Start on broad-spectrum IV antibiotics--vancomycin, Azactam. Will also start on acyclovir for herpetic zoster. Avoid nephrotoxic agents as able. Trend lactate levels. Oxygen supplementation as needed. Blood cultures obtained. Pharmacy consulted for glycemic management. Monitor renal function. Monitor platelets. May need to hold heparin SQ if platelet count continues to drop. Consider cardiology evaluation if needed. I personally reviewed the record. Patient is interviewed and examined at bedside. Patient's care is coordinated with Celena Weiner PA-C. Please refer to the documentation above for details of patient's presentation and for discussion of other issues.
[2019-05-02] MEDS ORDERED: FUROSEMIDE 40 MG in SYRINGE 0 ML IV ONE (19:30)
--- NOTE | 2019-05-02 19:53 | CT Scan Report ---
CT abd pelvis wo con CLINICAL HISTORY: 58 years-old Female presenting with abd pain. TECHNIQUE: Multidetector CT of the abdomen and pelvis was performed without the use of intravenous co ntrast. IV contrast: None. One or more dose lowering techniques were used consistent with the princip les of ALARA (as low as reasonably achievable), including automatic exposure control, mA or kV adjust ment to individual patient size, and/or use of iterative reconstruction. COMPARISON: Median sternotomy wires and prosthetic aortic valve. CT DOSE (mGy.cm): The estimated cumulative dose is 1466.94 mGy.cm. FINDINGS: Die Drawing Checker topogram: Unremarkable. Lung bases: Normal heart size. Coronary artery calcification. Prosthetic aortic valve partially visua lized. No pericardial or pleural effusion. Pulmonary vascular prominence. Few bandlike opacities and dependent consolidation in the left lower lobe likely atelectasis. Liver: Enlarged measuring 23.9 cm in maximal sagittal dimension. Density consistent with hepatic stea tosis. Well-defined hypodense lesions in the lateral left hepatic lobe likely hepatic cysts. Biliary: No gross biliary ductal dilatation allowing for noncontrast technique. Normal gallbladder. Pancreas: Normal noncontrast appearance. Spleen: Enlarged measuring 15.2 cm in maximal sagittal dimension. Adrenal glands: Normal noncontrast appearance. Kidneys and ureters: Hyperdense lesion at the upper pole the right kidney likely hemorrhagic or prote inaceous cyst. Few low-density cysts noted. No nephrolithiasis or hydronephrosis. Ureters nondistende d. Bladder: Decompressed with a Deutsch catheter. Pelvic organs: Uterus surgically absent. No adnexal masses. Bowel: Diverticulum may account for the appearance of a fluid-containing outpouching in the distal si gmoid colon (series 3 image 316). The appendix is not visualized. No bowel obstruction. Peritoneal cavity: No free fluid or intraperitoneal gas. Lymph nodes: No gross lymphadenopathy allowing for noncontrast technique. Vasculature: Atherosclerosis of the normal caliber abdominal aorta. Abdominal wall: Large ventral hernia containing small and large bowel. There is a superimposed hernia along the left aspect of this hernia sac containing unobstructed small bowel. Additional smaller sup erimposed hernia just to the left of midline along the super aspect of the dominant ventral hernia. N odular infiltration and skin thickening of the anterior abdominal wall likely relates to medication a dministration. Partially visualized breast implant. Musculoskeletal: Degenerative changes of the spine. Partially visualized median sternotomy wires. IMPRESSION: 1. Hepatosplenomegaly. 2. Hepatic steatosis. 3. Large ventral hernia with superimposed smaller hernias. No bowel obstruction. 4. Pulmonary vascular prominence suggests volume overload. Electronically signed by: Massimo Wilhelm M.D. 05/02/2019 7:52 PM
[2019-05-02] MEDS ORDERED: GLUCAGON FOR INJ 1 MG VIAL SQ PRN ×2 (20:22→21:00)
[2019-05-02] MEDS ORDERED: MAGNESIUM HYDROXIDE SUSP 30 ML UDC PO PRN (20:22)
[2019-05-02] MEDS ORDERED: GLUCOSE 10 TABS/TUBE PO PRN ×2 (20:22→21:00)
[2019-05-02] MEDS ORDERED: ONDANSETRON INJ 2 MG/ML 2 ML VIAL IV PRN (20:22)
[2019-05-02] MEDS ORDERED: ALUMINUM/MAGNESIUM SUSP 30 ML UDC PO PRN (20:22)
[2019-05-02] MEDS ORDERED: POLYETHYLENE (MIRALAX) 17 GM PACK PO PRN (20:22)
[2019-05-02] MEDS ORDERED: GLUCOSE 40% GEL 15 GM TUBE PO PRN ×2 (20:22→21:00)
[2019-05-02] MEDS ORDERED: AZTREONAM CONSULT ACTIVE PRN (20:43)
[2019-05-02] MEDS ORDERED: ACYCLOVIR CONSULT ACTIVE PRN (20:43)
[2019-05-02] MEDS ORDERED: PHARMACY GLYCEMIC MGMT CONSULT PRN (20:44)
[2019-05-02] MEDS ORDERED: VANCOMYCIN CONSULT ACTIVE PRN (20:44)
--- NOTE | 2019-05-02 20:47 | Emergency Department Note ---
Entered by Lalo Cardoza acting as a scribe for History of Present Illness General Chief complaint: Fever Stated complaint: sob/constipation Time Seen by Provider: 05/02/19 15:05 Source: patient History of Present Illness Provider complaint: Shortness of breath Onset (ago): month(s) 1 Location: chest Pain Consistency: + constant Maximum Pain Intensity: 9 Current Pain Intensity: 9 Relieved By: + none Exacerbated By: + none Associated symptoms: + fever/chills and + shortness of breath The patient is a 58 year old female who presents to the Emergency Room via EMS with complaints of constant shortness of breath for the past month, per her friend. Upon arrival to the ED the patient was febrile with a temperature of 100.8F. Per the patient's friend, the patient normally wears a CPAP at night but does not wear oxygen at all times. The nursing note states that the patient missed her doctors appointment today. The friend denies the patient having any recent falls or trauma. The patient has a history of severe aortic stenosis, H TN, HLD, hypothyroidism, DM, sleep apnea, UTIs anxiety, depression, breast cancer, and colon cancer. HPI is limited secondary to the patient's clinical condition. Home Medications Home Medications Medication Instructions Recorded Confirmed Type ammonium lactate 1 applic TOPICAL BID 05/02/19 05/02/19 History aripiprazole [Abilify] 30 mg PO QAM 05/02/19 05/02/19 History aspirin [Aspir-81] 81 mg PO DAILY 05/02/19 05/02/19 History atorvastatin [Lipitor] 40 mg PO DAILY 05/02/19 05/02/19 History buspirone 15 mg PO BID 05/02/19 05/02/19 History chromium picolinate 200 mcg PO DAILY 05/02/19 05/02/19 History clopidogrel [Plavix] 75 mg PO DAILY 05/02/19 05/02/19 History cyclobenzaprine 10 mg PO HS PRN 05/02/19 05/02/19 History docusate sodium [Colace] 100 mg PO DAILY 05/02/19 05/02/19 History fluoxetine [Prozac] 20 mg PO DAILY 05/02/19 05/02/19 History furosemide [Lasix] 40 mg PO DAILY PRN 05/02/19 05/02/19 History hydrocortisone acetate [Anusol-HC] 25 mg DE HS 05/02/19 05/02/19 History insulin regular hum U-500 conc 255 unit SUBCUT AC 05/02/19 05/02/19 History [Humulin R U-500 (Conc) Kwikpen] levothyroxine 75 mcg PO DAILY 05/02/19 05/02/19 History meclizine 50 mg PO BID 05/02/19 05/02/19 History melatonin 15 mg PO HS 05/02/19 05/02/19 History metoprolol tartrate [Lopressor] 50 mg PO BID 05/02/19 05/02/19 History multivitamin 1 tab PO DAILY 05/02/19 05/02/19 History nystatin [Nyamyc] 1 applic TOPICAL TID 05/02/19 05/02/19 History omega 5-led-ptj-fish oil [Fish Oil] 1 cap PO DAILY 05/02/19 05/02/19 History peg 400-propylene glycol (PF) 1 drp OPHTHALMIC (EYE) UD PRN 05/02/19 05/02/19 History [Systane (PF)] pregabalin [Lyrica] 75 mg PO BID 05/02/19 05/02/19 History torsemide 20 mg PO BID 05/02/19 05/02/19 History valsartan [Diovan] 20 mg PO DAILY 05/02/19 05/02/19 History vitamin B complex 1 tab PO DAILY 05/02/19 05/02/19 History Allergies Allergy/AdvReac Type Severity Reaction Status Date / Time lisinopril Allergy Unknown unk Verified 07/03/18 07:56 Penicillins Allergy Unknown . Verified 07/03/18 07:56 adhesive tape Allergy CAN NOT Verified 05/02/19 17:36 TOLERATE BANDAIDS monosodium glutamate Allergy EDEMA OF Verified 05/02/19 17:36 HANDS & FEET Past Med/Surg History Medical History CAD (coronary artery disease) (Chronic) Colon cancer (Resolved) Breast cancer (Resolved) Aortic valvar stenosis (Chronic) Cataract (Chronic) Dyslipidemia (Chronic) Heart failure (Chronic) HTN (hypertension) (Chronic) Hypothyroidism (Chronic) DANYELLE (obstructive sleep apnea) (Chronic) Depression with anxiety (Chronic) History of removal of breast implant (Chronic) "Left " Anxiety Aortic valve stenosis Breast cancer, right breast 2007--Sx, chemo/radiation Cardiac murmur Follows with Dr. Muniz Cataract of both eyes Colon cancer 2004--sx, no chemo or radiation Depression Diabetes mellitus, type 2 Hyperlipidemia Hypertension Hypothyroidism Liver cirrhosis non-alcoholic On anticoagulant therapy Sleep apnea Cpap Uterine cancer 2014--sx, no chemo/radiation Surgical History History of percutaneous coronary intervention (Chronic) prior to TAVR in order to protect her left main, she also had a 3.5 x 23 millimeter drug-eluting stent placed in the left main/LAD, which was expanded out into the aorta. H/O aortic valve replacement (Chronic) #25 Manga aortic valve bioprosthesis placed in 2010, and 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 On 11/06/2017 she underwent transcatheter aortic valve replacement receiving a 26 mm Hernandez-Bing S3 prosthesis History of carpal tunnel surgery of left wrist (Chronic) TAVR 2017 History of carpal tunnel surgery of right wrist (Chronic) Previous section (Chronic) H/O colonoscopy (Chronic) S/P mastectomy, bilateral (Chronic) History of partial colectomy (Chronic) History of appendectomy (Chronic) History of hysterectomy with bilateral oophorectomy (Chronic) H/O aortic valve replacement 06/2017 @ [facility] H/O bilateral mastectomy 01/2008--breast cancer H/O breast biopsy right--malignant H/O breast surgery L implant infected and was removed History of appendectomy History of bilateral tubal ligation [place] [facility] [place] Cancer History of breast reconstruction Bilt breast after masectomy History of cardiac cath x2--2010 @ [facility] 07/2017 @ [facility]-no stent, follows with Dr. Muniz History of carpal tunnel release bilt History of section x4 History of colonoscopy History of dilatation and curettage History of esophagogastroduodenoscopy (EGD) History of open heart [place] [facility] [place] [facility] History of total abdominal hysterectomy and bilateral salpingo-oophorectomy 2014 D/T uterine cancer S/P foot surgery, right "foot was widening" Family History Grandmother Family history of diabetes mellitus maternal Family/Other Family history of diabetes mellitus paternal aunt Father , of premature CAD Coronary heart disease Mother , of premature CAD Coronary heart disease Social History Preferred Language: Sami Communication Ability: Impaired Harness Tier Required: No Beliefs That Will Affect Care: None marital status: Single marital status details: has fiance Current Living Situation: Alone Other Information That Helps Us Care for You: No Feels Safe at Home: Yes Safety Concerns: Feels Safe At This Time Smoking Status: Never smoker Second Hand Exposure: Yes (PARENTS SMOKE) ; Hx Alcohol Use: No Hx Substance Use: No Review of Systems See HPI for pertinent positives & negatives. and A total of 10 systems reviewed and were otherwise negative Physical Exam Vital Signs Vital Signs - 24 hr 05/02/19 14:40 05/02/19 16:51 Temperature 38.2 C H 37.5 C Temperature Source Oral Oral Sepsis Recent Fever Within 48 Hours Yes Sepsis New/Unexplained Change in Mental Status No Sepsis Action Taken by Nursing Physician Notified Pulse Rate 121 H Pulse Rate [Bilateral Apical] 115 H Pulse Rhythm [Bilateral Apical] Regular Pulse Strength [Bilateral Apical] Normal Respiratory Rate 26 H 22 Respiratory Effort / Characteristics Non-Labored Spontaneous Respiratory Depth Normal Respiratory Pattern Regular Blood Pressure 114/67 Blood Pressure [Left Arm] 166/75 H Blood Pressure Mean 82 Blood Pressure Mean [Left Arm] 105 Blood Pressure Position Sitting Blood Pressure Position [Left Arm] Lying Pulse Oximetry 86 L 95 Oxygen Delivery Method Room Air Nasal Cannula Oxygen Flow Rate 2 GENERAL: She is lethargic and appears distressed. HENT: Exam performed. Head: Normocephalic and atraumatic. Right Ear: External ear normal. No mastoid tenderness. Left Ear: External ear normal. No mastoid tenderness. Mouth/Throat: The oropharynx is clear and moist. No trismus in the jaw. No dental abscesses or uvula swelling. No oropharyngeal exudate or tonsillar abscesses. EYES: Conjunctivae and EOM are normal. Pupils are equal, round, and reactive to light. Right eye exhibits no discharge. Left eye exhibits no discharge. No scleral icterus. NECK: Supple CV: Tachycardic rate, regular rhythm, normal heart sounds and intact distal pulses. Systolic murmur. There is no peripheral edema. Palpable radial pulses bue. PULM/CHEST: breath sounds diminished bilaterally. Rhonchi noted bilaterally. Chest Wall: She exhibits no tenderness. ABD: Abdomen is obese. The abdomen is soft. Bowel sounds are normal. She has no distension. No mass is present. There is no tenderness. There is no rebound, no guarding, no Sequeira's sign and no tenderness at McBurney's point. Rovsig negative MUSC/SKEL: Normal range of motion. There is no peripheral edema, tenderness or deformity. NEURO: Motor and sensation grossly intact. SKIN: Skin is warm and dry. She is not diaphoretic. Mild maculopapular rash over her lower thoracic and upper lumbar spine. Nikolsky sign negative, no vesicles. Course 1505: Past medical records reviewed. The patient was evaluated in room B12B, and a complete history and physical examination were performed.patient was found to be tachycardic hypoxic and febrile on immediate evaluation. Nasal cannula s upplemental 2 L were placed on the patient. Code sepsis protocols were immediately initiated. Given the patient's history of severe aortic stenosis aggressive hydration of 30cc/kg will not be pursued. Her pressures are stable at this time. Gentle hydration will be performed. Patient's POC lactic acid is 3.8. 1717: Vital signs are stable on supplemental oxygen. Labs show a WBC of 3.15, lactic acid of 4.0, and creatinine of 1.4. The chest x-ray shows fluid overload with possible infiltrate. The patient is allergic to Penicillins so she was started on Aztreonam and Vancomycin. I discussed the patient's case with Celena Rider PAC under Dr. Mickie Hall. They will be accepting the patient for further evaluation. Consultations Consultation #1: I discussed the patient's case with Celena Rider PAC under Dr. Mickie Hall. They will be accepting the patient for further evaluation. Time: 17:17 Administered Medications Discontinued Medications Sodium Chloride (Nss 1000ml) 1,000 mls @ 100 mls/hr IV .Q10H EVGENY Stop: 06/01/19 15:14 Last Infusion: 05/02/19 20:25 Dose: 0 mls/hr Documented by: [id number] Admin: 05/02/19 15:45 Dose: 100 mls/hr Documented by: [id number] Acetaminophen (Ofirmev) 1,000 mg in 100 mls @ 400 mls/hr IV NOW STA Stop: 05/02/19 15:34 Last Infusion: 05/02/19 17:01 Dose: 0 mls/hr Documented by: [id number] Admin: 05/02/19 16:46 Dose: 400 mls/hr Documented by: [id number] Aztreonam 2,000 mg/ Dextrose 110 mls @ 110 mls/hr IV NOW STA Stop: 05/02/19 16:44 Last Infusion: 05/02/19 18:22 Dose: 0 mls/hr Documented by: [id number] Admin: 05/02/19 17:22 Dose: 110 mls/hr Documented by: [id number] Vancomycin HCl 2,000 mg/ (Sodium Chloride) 540 mls @ 200 mls/hr IV NOW STA Stop: 05/02/19 18:27 Last Admin: 05/02/19 18:21 Dose: 200 mls/hr Documented by: [id number] Insulin Aspart (Novolog Flexpen) 10 units SC ONE STA Stop: 05/02/19 17:15 Last Admin: 05/02/19 17:28 Dose: 10 units Documented by: [id number] Cosigned by: [id number] Medical Decision Making Medical Records Attestation: I reviewed the patient's medical records. Home Medications Current Medication List: was personally reviewed by me Laboratory Data Attestation: I reviewed the patient's lab results. Result diagrams: 05/02/19 17:23 05/02/19 15:05 Lab Results 05/02/19 05/02/19 05/02/19 Range/Units 15:05 15:05 15:05 WBC Cancelled RBC Cancelled Hgb Cancelled POC Hgb (12.0-16.0) g/dl Hct Cancelled POC Hct (37-47) % MCV Cancelled MCH Cancelled MCHC Cancelled RDW Std Deviation Cancelled RDW Coeff of Valerio Cancelled Plt Count Cancelled MPV Cancelled Immature Gran % (Auto) Cancelled Neut % (Auto) Cancelled Lymph % (Auto) Cancelled [place] % (Auto) Cancelled Eos % (Auto) Cancelled Baso % (Auto) Cancelled Immature Gran # (Auto) Cancelled Neut # (Auto) Cancelled Lymph # (Auto) Cancelled [place] # (Auto) Cancelled Eos # (Auto) Cancelled Baso # (Auto) Cancelled Absolute Nucleated RBC Cancelled Nucleated RBC % (auto) Cancelled Neutrophils % (Manual) Cancelled Band Neutrophils % Cancelled Lymphocytes % (Manual) Cancelled Prolymphocyte % Cancelled Reactive Lymphs % (Man) Cancelled Monocytes % (Manual) Cancelled Eosinophils % (Manual) Cancelled Basophils % (Manual) Cancelled Metamyelocytes % (Man) Cancelled Myelocytes % (Man) Cancelled Promyelocytes % (Man) Cancelled Blast Cells % (Manual) Cancelled Plasma Cell % (Manual) Cancelled Other Cells % Cancelled Nucleated RBC % Cancelled Neutrophils # (Manual) Cancelled Band Neutrophils # Cancelled Total Absolute Neuts Cancelled Lymphocytes # (Manual) Cancelled Prolymphocyte # Cancelled Reactive Lymphs # Cancelled Total Abs Lymphocytes Cancelled Monocytes # (Manual) Cancelled Eosinophils # (Manual) Cancelled Basophils # (Manual) Cancelled Metamyelocytes # (Man) Cancelled Myelocytes # (Manual) Cancelled Promyelocytes # (Man) Cancelled Blast Cells # (Man) Cancelled Plasma Cell # (Manual) Cancelled Other Cells # Cancelled Nucleated RBCs # (Man) Cancelled Hypersegmented Neuts Cancelled Hyposegmented Neuts Cancelled Hypogranular Neuts Cancelled Large Granular Lymphs Cancelled # Lrg Granular Lymphs Cancelled Hairy Cells Cancelled Smudge Cells Cancelled Toxic Granulation Cancelled Toxic Vacuolation Cancelled Dohle Bodies Cancelled Nicole Rods Cancelled Platelet Estimate Cancelled Hypogranular Platelets Cancelled Clumped Platelets Cancelled Giant Platelets Cancelled Platelet Satelliting Cancelled RBC Morphology Cancelled Polychromasia Cancelled Hypochromasia Cancelled Poikilocytosis Cancelled Basophilic Stippling Cancelled Anisocytosis Cancelled Microcytosis Cancelled Macrocytosis Cancelled Spherocytes Cancelled Pappenheimer Bodies Cancelled Sickle Cells Cancelled Target Cells Cancelled Tear Drop Cells Cancelled Ovalocytes Cancelled Stomatocytes Cancelled Ziegler-[place] Bodies Cancelled Echinocytes Cancelled Acanthocytes (Spur) Cancelled Rouleaux Cancelled RBC Agglutinates Cancelled Schistocytes Cancelled RBC Morph Comment Cancelled Sezary Cell Cancelled PT Cancelled INR Cancelled APTT Cancelled PTT Ratio Cancelled VBG pH (7.36-7.41) VBG pCO2 (38-50) mmHg VBG pO2 mmHg VBG HCO3 mmol/L VBG O2 Saturation % VBG Base Excess mEq/L Barometric Pressure mm/Hg POC Sodium (135-144) mEq/L Sodium 138 (136-145) mmol/L POC Potassium (3.3-5.0) mEq/L Potassium 4.4 (3.5-5.1) mmol/L POC Chloride (101-112) mEq/L Chloride 98 (98-107) mmol/L Carbon Dioxide 31 (21-32) mmol/L POC Total CO2 (24-31) mEq/l Anion Gap 9.0 (3-11) POC Anion Gap (16-25) mmol/L POC BUN (7-18) mg/dl BUN 32 H (7-18) mg/dl Creatinine 1.40 H (0.6-1.2) mg/dl POC Creatinine (0.6-1.3) mg/dl Est Cr Clr Drug Dosing 45.4 ml/min Est GFR ( Amer) 47.2 Est GFR (Non-Af Amer) 40.7 BUN/Creatinine Ratio 23.1 H (10-20) Glucose 394 H* (70-99) mg/dl POC Glucose (70-99) POC Glucose (other) (70-99) mg/dl POC Lactic Acid Garrick (0.90-1.70) mmol/L Calcium 9.4 (8.5-10.1) mg/dl POC Ioniz Calcium Marek (1.12-1.32) mmol/l Total Bilirubin 0.8 (0.2-1) mg/dl AST 21 (15-37) U/L ALT 22 (12-78) U/L Alkaline Phosphatase 84 (45-117) U/L Total Protein 7.5 (6.4-8.2) gm/dl Albumin 3.8 (3.4-5.0) gm/dl Globulin 3.7 (2.5-4.0) gm/dl Albumin/Globulin Ratio 1.0 (0.9-2) Beta-Hydroxybutyric Acd (0.2-2.81) mg/dl Procalcitonin (0-0.5) ng/ml Urine Color Urine Appearance (Clear) Urine pH (4.5-7.5) Ur Specific [place] (1.000-1.030) Urine Protein (Negative) Urine Glucose (UA) (Negative) Urine Ketones (Negative) Urine Blood (Negative) Urine Nitrite (Negative) Urine Bilirubin (Negative) Urine Urobilinogen (Negative) Ur Leukocyte Esterase (Negative) 05/02/19 05/02/19 05/02/19 Range/Units 15:08 15:11 15:24 WBC RBC Hgb POC Hgb 11.2 L (12.0-16.0) g/dl Hct POC Hct 33 L (37-47) % MCV MCH MCHC RDW Std Deviation RDW Coeff of Valerio Plt Count MPV Immature Gran % (Auto) Neut % (Auto) Lymph % (Auto) [place] % (Auto) Eos % (Auto) Baso % (Auto) Immature Gran # (Auto) Neut # (Auto) Lymph # (Auto) [place] # (Auto) Eos # (Auto) Baso # (Auto) Absolute Nucleated RBC Nucleated RBC % (auto) Neutrophils % (Manual) Band Neutrophils % Lymphocytes % (Manual) Prolymphocyte % Reactive Lymphs % (Man) Monocytes % (Manual) Eosinophils % (Manual) Basophils % (Manual) Metamyelocytes % (Man) Myelocytes % (Man) Promyelocytes % (Man) Blast Cells % (Manual) Plasma Cell % (Manual) Other Cells % Nucleated RBC % Neutrophils # (Manual) Band Neutrophils # Total Absolute Neuts Lymphocytes # (Manual) Prolymphocyte # Reactive Lymphs # Total Abs Lymphocytes Monocytes # (Manual) Eosinophils # (Manual) Basophils # (Manual) Metamyelocytes # (Man) Myelocytes # (Manual) Promyelocytes # (Man) Blast Cells # (Man) Plasma Cell # (Manual) Other Cells # Nucleated RBCs # (Man) Hypersegmented Neuts Hyposegmented Neuts Hypogranular Neuts Large Granular Lymphs # Lrg Granular Lymphs Hairy Cells Smudge Cells Toxic Granulation Toxic Vacuolation Dohle Bodies Nicole Rods Platelet Estimate Hypogranular Platelets Clumped Platelets Giant Platelets Platelet Satelliting RBC Morphology Polychromasia Hypochromasia Poikilocytosis Basophilic Stippling Anisocytosis Microcytosis Macrocytosis Spherocytes Pappenheimer Bodies Sickle Cells Target Cells Tear Drop Cells Ovalocytes Stomatocytes Ziegler-[place] Bodies Echinocytes Acanthocytes (Spur) Rouleaux RBC Agglutinates Schistocytes RBC Morph Comment Sezary Cell PT INR APTT PTT Ratio VBG pH (7.36-7.41) VBG pCO2 (38-50) mmHg VBG pO2 mmHg VBG HCO3 mmol/L VBG O2 Saturation % VBG Base Excess mEq/L Barometric Pressure mm/Hg POC Sodium 137 (135-144) mEq/L Sodium (136-145) mmol/L POC Potassium 4.5 (3.3-5.0) mEq/L Potassium (3.5-5.1) mmol/L POC Chloride 98 L (101-112) mEq/L Chloride (98-107) mmol/L Carbon Dioxide (21-32) mmol/L POC Total CO2 27 (24-31) mEq/l Anion Gap (3-11) POC Anion Gap 16.0 (16-25) mmol/L POC BUN 34 H (7-18) mg/dl BUN (7-18) mg/dl Creatinine (0.6-1.2) mg/dl POC Creatinine 1.0 (0.6-1.3) mg/dl Est Cr Clr Drug Dosing ml/min Est GFR ( Amer) Est GFR (Non-Af Amer) BUN/Creatinine Ratio (10-20) Glucose (70-99) mg/dl POC Glucose (70-99) POC Glucose (other) 422 H* (70-99) mg/dl POC Lactic Acid Garrick 3.83 H (0.90-1.70) mmol/L Calcium (8.5-10.1) mg/dl POC Ioniz Calcium Marek 1.08 L (1.12-1.32) mmol/l Total Bilirubin (0.2-1) mg/dl AST (15-37) U/L ALT (12-78) U/L Alkaline Phosphatase (45-117) U/L Total Protein (6.4-8.2) gm/dl Albumin (3.4-5.0) gm/dl Globulin (2.5-4.0) gm/dl Albumin/Globulin Ratio (0.9-2) Beta-Hydroxybutyric Acd (0.2-2.81) mg/dl Procalcitonin 0.31 (0-0.5) ng/ml Urine Color Urine Appearance (Clear) Urine pH (4.5-7.5) Ur Specific [place] (1.000-1.030) Urine Protein (Negative) Urine Glucose (UA) (Negative) Urine Ketones (Negative) Urine Blood (Negative) Urine Nitrite (Negative) Urine Bilirubin (Negative) Urine Urobilinogen (Negative) Ur Leukocyte Esterase (Negative) 05/02/19 05/02/19 05/02/19 Range/Units 15:24 15:43 16:33 WBC Cancelled RBC Cancelled Hgb Cancelled POC Hgb (12.0-16.0) g/dl Hct Cancelled POC Hct (37-47) % MCV Cancelled MCH Cancelled MCHC Cancelled RDW Std Deviation Cancelled RDW Coeff of Valerio Cancelled Plt Count Cancelled MPV Cancelled Immature Gran % (Auto) Cancelled Neut % (Auto) Cancelled Lymph % (Auto) Cancelled [place] % (Auto) Cancelled Eos % (Auto) Cancelled Baso % (Auto) Cancelled Immature Gran # (Auto) Cancelled Neut # (Auto) Cancelled Lymph # (Auto) Cancelled [place] # (Auto) Cancelled Eos # (Auto) Cancelled Baso # (Auto) Cancelled Absolute Nucleated RBC Cancelled Nucleated RBC % (auto) Cancelled Neutrophils % (Manual) Cancelled Band Neutrophils % Cancelled Lymphocytes % (Manual) Cancelled Prolymphocyte % Cancelled Reactive Lymphs % (Man) Cancelled Monocytes % (Manual) Cancelled Eosinophils % (Manual) Cancelled Basophils % (Manual) Cancelled Metamyelocytes % (Man) Cancelled Myelocytes % (Man) Cancelled Promyelocytes % (Man) Cancelled Blast Cells % (Manual) Cancelled Plasma Cell % (Manual) Cancelled Other Cells % Cancelled Nucleated RBC % Cancelled Neutrophils # (Manual) Cancelled Band Neutrophils # Cancelled Total Absolute Neuts Cancelled Lymphocytes # (Manual) Cancelled Prolymphocyte # Cancelled Reactive Lymphs # Cancelled Total Abs Lymphocytes Cancelled Monocytes # (Manual) Cancelled Eosinophils # (Manual) Cancelled Basophils # (Manual) Cancelled Metamyelocytes # (Man) Cancelled Myelocytes # (Manual) Cancelled Promyelocytes # (Man) Cancelled Blast Cells # (Man) Cancelled Plasma Cell # (Manual) Cancelled Other Cells # Cancelled Nucleated RBCs # (Man) Cancelled Hypersegmented Neuts Cancelled Hyposegmented Neuts Cancelled Hypogranular Neuts Cancelled Large Granular Lymphs Cancelled # Lrg Granular Lymphs Cancelled Hairy Cells Cancelled Smudge Cells Cancelled Toxic Granulation Cancelled Toxic Vacuolation Cancelled Dohle Bodies Cancelled Nicole Rods Cancelled Platelet Estimate Cancelled Hypogranular Platelets Cancelled Clumped Platelets Cancelled Giant Platelets Cancelled Platelet Satelliting Cancelled RBC Morphology Cancelled Polychromasia Cancelled Hypochromasia Cancelled Poikilocytosis Cancelled Basophilic Stippling Cancelled Anisocytosis Cancelled Microcytosis Cancelled Macrocytosis Cancelled Spherocytes Cancelled Pappenheimer Bodies Cancelled Sickle Cells Cancelled Target Cells Cancelled Tear Drop Cells Cancelled Ovalocytes Cancelled Stomatocytes Cancelled Ziegler-[place] Bodies Cancelled Echinocytes Cancelled Acanthocytes (Spur) Cancelled Rouleaux Cancelled RBC Agglutinates Cancelled Schistocytes Cancelled RBC Morph Comment Cancelled Sezary Cell Cancelled PT INR APTT PTT Ratio VBG pH 7.48 H (7.36-7.41) VBG pCO2 44 (38-50) mmHg VBG pO2 44 mmHg VBG HCO3 32 mmol/L VBG O2 Saturation 79.1 % VBG Base Excess 7.7 mEq/L Barometric Pressure 727.8 mm/Hg POC Sodium (135-144) mEq/L Sodium (136-145) mmol/L POC Potassium (3.3-5.0) mEq/L Potassium (3.5-5.1) mmol/L POC Chloride (101-112) mEq/L Chloride (98-107) mmol/L Carbon Dioxide (21-32) mmol/L POC Total CO2 (24-31) mEq/l Anion Gap (3-11) POC Anion Gap (16-25) mmol/L POC BUN (7-18) mg/dl BUN (7-18) mg/dl Creatinine (0.6-1.2) mg/dl POC Creatinine (0.6-1.3) mg/dl Est Cr Clr Drug Dosing ml/min Est GFR ( Amer) Est GFR (Non-Af Amer) BUN/Creatinine Ratio (10-20) Glucose (70-99) mg/dl POC Glucose (70-99) POC Glucose (other) (70-99) mg/dl POC Lactic Acid Garrick (0.90-1.70) mmol/L Calcium (8.5-10.1) mg/dl POC Ioniz Calcium Marek (1.12-1.32) mmol/l Total Bilirubin (0.2-1) mg/dl AST (15-37) U/L ALT (12-78) U/L Alkaline Phosphatase (45-117) U/L Total Protein (6.4-8.2) gm/dl Albumin (3.4-5.0) gm/dl Globulin (2.5-4.0) gm/dl Albumin/Globulin Ratio (0.9-2) Beta-Hydroxybutyric Acd (0.2-2.81) mg/dl Procalcitonin (0-0.5) ng/ml Urine Color Yellow Urine Appearance Clear (Clear) Urine pH 8.0 H (4.5-7.5) Ur Specific [place] 1.018 (1.000-1.030) Urine Protein Negative (Negative) Urine Glucose (UA) 3+ H (Negative) Urine Ketones Negative (Negative) Urine Blood Negative (Negative) Urine Nitrite Negative (Negative) Urine Bilirubin Negative (Negative) Urine Urobilinogen Negative (Negative) Ur Leukocyte Esterase Negative (Negative) 05/02/19 05/02/19 Range/Units 16:33 17:20 WBC RBC Hgb POC Hgb (12.0-16.0) g/dl Hct POC Hct (37-47) % MCV MCH MCHC RDW Std Deviation RDW Coeff of Valerio Plt Count MPV Immature Gran % (Auto) Neut % (Auto) Lymph % (Auto) [place] % (Auto) Eos % (Auto) Baso % (Auto) Immature Gran # (Auto) Neut # (Auto) Lymph # (Auto) [place] # (Auto) Eos # (Auto) Baso # (Auto) Absolute Nucleated RBC Nucleated RBC % (auto) Neutrophils % (Manual) Band Neutrophils % Lymphocytes % (Manual) Prolymphocyte % Reactive Lymphs % (Man) Monocytes % (Manual) Eosinophils % (Manual) Basophils % (Manual) Metamyelocytes % (Man) Myelocytes % (Man) Promyelocytes % (Man) Blast Cells % (Manual) Plasma Cell % (Manual) Other Cells % Nucleated RBC % Neutrophils # (Manual) Band Neutrophils # Total Absolute Neuts Lymphocytes # (Manual) Prolymphocyte # Reactive Lymphs # Total Abs Lymphocytes Monocytes # (Manual) Eosinophils # (Manual) Basophils # (Manual) Metamyelocytes # (Man) Myelocytes # (Manual) Promyelocytes # (Man) Blast Cells # (Man) Plasma Cell # (Manual) Other Cells # Nucleated RBCs # (Man) Hypersegmented Neuts Hyposegmented Neuts Hypogranular Neuts Large Granular Lymphs # Lrg Granular Lymphs Hairy Cells Smudge Cells Toxic Granulation Toxic Vacuolation Dohle Bodies Nicole Rods Platelet Estimate Hypogranular Platelets Clumped Platelets Giant Platelets Platelet Satelliting RBC Morphology Polychromasia Hypochromasia Poikilocytosis Basophilic Stippling Anisocytosis Microcytosis Macrocytosis Spherocytes Pappenheimer Bodies Sickle Cells Target Cells Tear Drop Cells Ovalocytes Stomatocytes [place]ieg[place] Bodies Echinocytes Acanthocytes (Spur) Rouleaux RBC Agglutinates Schistocytes RBC Morph Comment Sezary Cell PT Cancelled INR Cancelled APTT Cancelled PTT Ratio Cancelled VBG pH (7.36-7.41) VBG pCO2 (38-50) mmHg VBG pO2 mmHg VBG HCO3 mmol/L VBG O2 Saturation % VBG Base Excess mEq/L Barometric Pressure mm/Hg POC Sodium (135-144) mEq/L Sodium (136-145) mmol/L POC Potassium (3.3-5.0) mEq/L Potassium (3.5-5.1) mmol/L POC Chloride (101-112) mEq/L Chloride (98-107) mmol/L Carbon Dioxide (21-32) mmol/L POC Total CO2 (24-31) mEq/l Anion Gap (3-11) POC Anion Gap (16-25) mmol/L POC BUN (7-18) mg/dl BUN (7-18) mg/dl Creatinine (0.6-1.2) mg/dl POC Creatinine (0.6-1.3) mg/dl Est Cr Clr Drug Dosing ml/min Est GFR ( Amer) Est GFR (Non-Af Amer) BUN/Creatinine Ratio (10-20) Glucose (70-99) mg/dl POC Glucose 364 H* (70-99) POC Glucose (other) (70-99) mg/dl POC Lactic Acid Garrick (0.90-1.70) mmol/L Calcium (8.5-10.1) mg/dl POC Ioniz Calcium Marek (1.12-1.32) mmol/l Total Bilirubin (0.2-1) mg/dl AST (15-37) U/L ALT (12-78) U/L Alkaline Phosphatase (45-117) U/L Total Protein (6.4-8.2) gm/dl Albumin (3.4-5.0) gm/dl Globulin (2.5-4.0) gm/dl Albumin/Globulin Ratio (0.9-2) Beta-Hydroxybutyric Acd (0.2-2.81) mg/dl Procalcitonin (0-0.5) ng/ml Urine Color Urine Appearance (Clear) Urine pH (4.5-7.5) Ur Specific [place] (1.000-1.030) Urine Protein (Negative) Urine Glucose (UA) (Negative) Urine Ketones (Negative) Urine Blood (Negative) Urine Nitrite (Negative) Urine Bilirubin (Negative) Urine Urobilinogen (Negative) Ur Leukocyte Esterase (Negative) Imaging Data Radiologist's Impression: Radiology results as stated below per my review and the radiologist's interpretation: XR chest 1V portable HISTORY: 58 years-old Female Sepsis acute sepsis COMPARISON: CTA of the chest 07/18/2017, chest radiograph 07/17/2017 TECHNIQUE: Portable AP view of the chest FINDINGS: Cardiac silhouette is enlarged. Prior median sternotomy with prosthetic aortic valve. Pulmonary vascular congestion with mild interstitial coarsening. Asymmetric opacities about the left midlung and left lung base redemonstrated with radiodense structure projecting about the left breast. No pneumothorax or pleural effusion. Degenerative changes of the shoulders and spine. IMPRESSION: 1. Cardiomegaly with pulmonary vascular congestion. 2. Prior median sternotomy with prosthetic aortic valve. 3. 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 Superimposed airspace disease would be difficult to exclude. The above report was generated using voice recognition software. It may contain grammatical, syntax or spelling errors. Electronically signed by: Gerald Leslie M.D. 05/02/2019 3:32 PM ECG Data Attestation: I personally reviewed and interpreted this ECG as follows: Indication: other (Sepsis) Rate (beats per minute): 116 Rhythm: sinus tachycardia Findings: + other (DE, QRS, QTC intervals are WNL. Baseline wander and artifact due to patient movement.); no ST depression and no ST elevation Blood Pressure Blood Pressure Findings: Elevated blood pressure Blood Pressure Disposition: further management by hospitalist RENUKA Narrative 1505: Past medical records reviewed. The patient was evaluated in room B12B, and a complete history and physical examination were performed.patient was found to be tachycardic hypoxic and febrile on immediate evaluation. Nasal cannula supplemental 2 L were placed on the patient. Code sepsis protocols were immediately initiated. Given the patient's history of severe aortic stenosis aggressive hydration of 30cc/kg will not be pursued. Her pressures are stable at this time. Gentle hydration will be performed. Patient's POC lactic acid is 3.8. 1717: Vital signs are stable on supplemental oxygen. Labs show a WBC of 3.15, lactic acid of 4.0, and creatinine of 1.4. The chest x-ray shows fluid overload with possible infiltrate. The patient is allergic to Penicillins so she was started on Aztreonam and Vancomycin. I discussed the patient's case with Celena Rider PAC under Dr. Mickie Rider Hospitalist. They will be accepting the patient for further evaluation. Impression & Plan Sepsis, Aortic stenosis, Infectious encephalopathy, Pneumonia, Hypoxia Critical Care Time Critical Care Time: Yes Total Critical Care Time: 60 I have personally spent greater than 60 minutes of critical care time in the direct management of this patient. This includes bedside care, interpretation of diagnostic studies, and testing, discussion with consultants, patient, and family members, and other required patient management activities. This 60 minutes is in excess of all separately billable procedures. Discharge Plan Visit Data *Final* Discharge Date/Time: 05/02/19 19:17 Chief Complaint: Fever Stated Complaint: sob/constipation ED Provider: Jam Rodriguez Discharge Problem: Sepsis, Aortic stenosis, Infectious encephalopathy, Pneumonia, Hypoxia Patient Disposition: Admitted As Inpatient Discharge Instructions Interventions: ED Discharge Assessment Last Done: 05/02/19 19:17 Discharge Problem: Sepsis Qualifiers: Sepsis type: sepsis due to unspecified organism Sepsis acute organ dysfunction status: unspecified Qualified Code(s): A41.9 - Sepsis, unspecified organism Aortic stenosis Qualifiers: Cardiac valve disease etiology: nonrheumatic Qualified Code(s): I35.0 - Nonrheumatic aortic (valve) stenosis Pneumonia Qualifiers: Pneumonia type: due to unspecified organism Laterality: left Lung location: lower lobe of lung Qualified Code(s): J18.1 - Lobar pneumonia, unspecified organism The scribe's documentation has been prepared under my direction and personally reviewed by me in its entirety. I confirm that the note above accurately reflects all work, treatment, procedures, and medical decision making performed by me.
--- NOTE | 2019-05-02 20:53 | Pharmacy Report ---
Pharmacy Glycemic Short Note 2 - Date of Service May 02, 2019 - Glycemic Short BSG Results (Last 24 hours): 05/02/19 05/02/19 05/02/19 15:05 15:11 17:20 Glucose 394 H* POC Glucose 364 H* POC Glucose (other) 422 H* 05/02/19 20:33 Glucose POC Glucose 264 H POC Glucose (other) OUTPATIENT ANTIDIABETIC REGIMEN: * U-500 - 255units TID with meals * 6.4 - 07/18/17, updated A1c ordered ASSESSMENT: * 58 year old female admitted with severe sepsis, resp failure, decompensating CHF. Type 2 diabetic on 765 units of insulin per day, using U500. * Patient unable to talk with me, metabolic encephalopathy, NPO * Nurse was able to tell me that patient has not received any insulin today. * Blood sugars elevated 300-400s, no anion gap, will give one time dose of U500 to make up for deficits today and check blood sugar q4h overnight, further U500 dosing tomorrow. * Start insulin drip if patient blood sugar remains over 300 overnight. PLAN FOR INPATIENT GLYCEMIC CONTROL: * U500 - 300 units x 1 dose now at 2100, further dosing tomorrow * Bolus insulin * NovoLog per scale Q4H * Goal Range: Low 140 mg/dL - High 180 mg/dL * Correction Factor: 10 mg/dL/unit
[2019-05-02] MEDS ORDERED: HUMULIN R U SC ONE (21:00)
[2019-05-02] MEDS ORDERED: DEXTROSE 50% 50 ML SYRINGE IV PRN (21:00)
[2019-05-02] MEDS ORDERED: CARBOHYDRATES FOR HYPOGLYCEMIA PO PRN (21:00)
[2019-05-02] MEDS: HEPARIN SOD 5,000 UNIT/0.5 ML VIAL SQ SCH (22:12)
[2019-05-02] MEDS: ACETAMINOPHEN 65 ML IV PRN (22:38)
[2019-05-03] MEDS ORDERED: INSULIN ASPART 100 UNITS/ML 3 ML PEN SC SCH
[2019-05-03] MEDS: INSULIN ASPART 100 UNITS/ML 3 ML PEN SC SCH ×5 (00:13→21:58)
[2019-05-03] MEDS ORDERED: SODIUM CHLORIDE 0.9% 500 ML IV SCH (01:15)
[2019-05-03 01:47] LABS: Hematocrit (blood only) 36.3 % (37-47); Hemoglobin 11.8 g/dL (12.0-16.0); Mean Corpuscular Hgb Conc 32.5 g/dL (32-36); RDW Coefficient of Variation 15.9 % (11.5-14.5); RDW Standard Deviation 51.8 fL (36.4-46.3); Red Blood Count 4.08 M/uL (4.2-5.4); White Blood Count 3.57 K/uL (4.8-10.8)
[2019-05-03 02:07] LABS: Albumin Level 3.4 gm/dl (3.4-5.0); Calcium 9.4 mg/dl (8.5-10.1); Creatinine Clr Calc Pharmacy 53.8 ml/min; Est GFR (African American) 57.5; Est GFR (Non-African American) 49.6; Potassium 3.4 mmol/L (3.5-5.1)
[2019-05-03 02:11] LABS: Albumin Globulin Ratio 0.9 (0.9-2); Bilirubin,Total 0.5 mg/dl (0.2-1); Globulin 3.6 gm/dl (2.5-4.0)
[2019-05-03] MEDS: AZTREONAM 2,000 MG in DEXTROSE 5% 100 ML IV SCH ×3 (02:16→18:23)
[2019-05-03 02:18] LABS: Basophils # (auto) 0.01 K/uL (0-0.2); Basophils % (auto) 0.3 %; Eosinophils # (auto) 0.01 K/uL (0-0.5); Eosinophils % (auto) 0.3 %; Immature Granulocytes # (auto) 0.03 K/uL (0.00-0.02); Immature Granulocytes % (auto) 0.8 %; Lymphocytes # (auto) 0.94 K/uL (1.2-3.4); Lymphocytes % (auto) 26.3 %; Mean Platelet Volume 11.6 fL (7.4-10.4); Monocytes # (auto) 0.35 K/uL (0.11-0.59); Monocytes % (auto) 9.8 %; Neutrophils # (auto) 2.23 K/uL (1.4-6.5); Neutrophils % (auto) 62.5 %; Platelet Count 89 K/uL (130-400)
[2019-05-03] MEDS ORDERED: POTASSIUM CHLORIDE 10 MEQ TABCR PO STA (03:23)
[2019-05-03] MEDS: SODIUM CHLORIDE 0.9% 500 ML IV SCH ×2 (03:33→04:51)
[2019-05-03] MEDS: POTASSIUM CHLORIDE / WTR 10 MEQ/100 ML PLCT IV SCH ×2 (03:39→04:47)
[2019-05-03] MEDS: DEXTROSE 50% 50 ML SYRINGE IV PRN ×2 (04:05→04:17)
[2019-05-03] MEDS: ACETAMINOPHEN 65 ML IV PRN ×2 (04:58→16:38)
[2019-05-03 05:01] LABS: Base Excess ABG 6.7 mEq/L (-9-1.8); HCO3 ABG 30 mmol/L (19-24); Oxygen Saturation ABG 95.9 % (90-95); PCO2 ABG 40 mmHg (35-46); PO2 ABG 78 mm/Hg (80-95)
[2019-05-03 05:09] LABS: Allen Test POS (Pos)
[2019-05-03] MEDS: DEXTROSE 5% IV SCH ×3 (05:15→19:58)
[2019-05-03] MEDS: ACYCLOVIR SOD IV SCH ×3 (05:15→19:58)
[2019-05-03] MEDS ORDERED: D5W AND NSS 1,000 ML IV SCH (05:30)
[2019-05-03] MEDS ORDERED: SODIUM CHLORIDE 0.9% 1000ML 1,000 ML IV SCH (05:45)
[2019-05-03] MEDS: HEPARIN SOD 5,000 UNIT/0.5 ML VIAL SQ SCH (06:16)
[2019-05-03 07:24] LABS: Estimated Average Glucose 183 mg/dl
[2019-05-03 07:33] LABS: Hemoglobin 11.4 g/dL (12.0-16.0); Mean Corpuscular Hgb Conc 32.6 g/dL (32-36); Mean Corpuscular Volume 89.7 fL (80-100); RDW Standard Deviation 51.9 fL (36.4-46.3); White Blood Count 5.54 K/uL (4.8-10.8)
[2019-05-03 07:37] LABS: Mean Platelet Volume 10.7 fL (7.4-10.4); Platelet Count 79 K/uL (130-400)
[2019-05-03 07:50] LABS: BUN Creatinine Ratio 18.6 (10-20); Calcium 9.2 mg/dl (8.5-10.1); Creatinine Clr Calc Pharmacy 60.8 ml/min; Est GFR (African American) 66.9; Est GFR (Non-African American) 57.7; Magnesium 2.1 mg/dl (1.8-2.4); Potassium 3.5 mmol/L (3.5-5.1)
[2019-05-03] MEDS: CARBOHYDRATES FOR HYPOGLYCEMIA PO PRN ×2 (07:53→08:10)
[2019-05-03 08:01] LABS: Phosphorus 1.5 mg/dl (2.5-4.9)
[2019-05-03 08:03] LABS: Basophils # (auto) 0.01 K/uL (0-0.2); Basophils % (auto) 0.2 %; Immature Granulocytes # (auto) 0.04 K/uL (0.00-0.02); Immature Granulocytes % (auto) 0.7 %; Lymphocytes # (auto) 1.56 K/uL (1.2-3.4); Lymphocytes % (auto) 28.2 %; Monocytes # (auto) 0.53 K/uL (0.11-0.59); Monocytes % (auto) 9.6 %; Neutrophils % (auto) 61.3 %
[2019-05-03] MEDS ORDERED: SODIUM PHOSPHATE 3 MMOL/1 ML 5 ML VIAL IV ONE (08:43)
[2019-05-03] MEDS ORDERED: SODIUM PHOSPHATE 30 MMOL in SODIUM CHLORIDE 0.9% 500 ML IV ONE (09:30)
--- NOTE | 2019-05-03 09:31 | Pharmacy Report ---
Pharmacy Abx Initial Consult - Date of Service May 03, 2019 - Pharmacy Dosing Scope Date of Consult: 05/02/19 Consultation requested by: Celena Weiner, PAC Pharmacy is consulted to initiate vancomycin, aztreonam and acyclovir IV dosing therapy, order appropriate labs and adjust drug dose/frequency. - Subjective The patient is a 58 year old F admitted on 05/02/19 17:23. - Objective Height: 5 ft Weight: 100.7 kg Vital Signs (Past 12hrs): Vital Signs Temp Pulse Pulse Resp BP Pulse Ox 05/03/19 07:34 37.7 C H 112 H 19 114/62 91 05/03/19 05:53 37.7 C H 05/03/19 04:33 38.5 C H 05/03/19 03:35 37.9 C H 122 H 17 122/63 95 05/03/19 01:58 121 H 05/02/19 23:47 37.2 C 119 H 20 113/61 91 05/02/19 22:06 38.6 C H 118 H 25 H 144/74 H 97 Lab Results (24hrs): Laboratory Tests (24 Hours) 05/03/19 05/03/19 05/03/19 07:14 07:14 01:21 WBC 5.54 Neut # (Auto) 3.40 Creatinine 1.05 1.19 Est Cr Clr Drug Dosing 60.8 53.8 Procalcitonin 05/03/19 05/02/19 05/02/19 01:21 17:23 16:33 WBC 3.57 L 3.15 L Cancelled Neut # (Auto) 2.23 1.93 Cancelled Creatinine Est Cr Clr Drug Dosing Procalcitonin 05/02/19 05/02/19 05/02/19 15:24 15:05 15:05 WBC Cancelled Neut # (Auto) Cancelled Creatinine 1.40 H Est Cr Clr Drug Dosing 45.4 Procalcitonin 0.31 Micro Results: 05/02/19 15:20 Aerobic Blood Culture - Pending Blood Anaerobic Blood Culture - Pending 05/02/19 15:05 Aerobic Blood Culture - Pending Blood Anaerobic Blood Culture - Pending - Assessment & Plan Assessment 58 year old F admitted for fevers, not feeling well for a day. Pertinent PMH includes DM, diastolic heart failure, CKD Stage 3. Patient met severe sepsis criteria on admission and patient started on broad spectrum antimicrobials in the form of vancomycin, azactam (d/t PCN allergy) and acyclovir. Herpes zoster also noted on exam. Source of sepsis includes herpes zoster vs bacteremia vs acute abdominal process. Plan Vancomycin IV * Estimated PK Parameters: Vd 0.54 L/kg (BMI > 40 kg/m2), Maury 0.055 hr-1, t1/2 12.6 hr * Loading dose: 2000 mg (20 mg/kg) given in the ED * Maintenance dose: 1250 mg IV (12.4 mg/kg) every 16 hours * Goal trough level : 15 to 20 mcg/mL * Trough level ordered for 05/04/19 - Note: this is PRIOR to steady state but want to monitor closely with the potential for accumulation * A less than traditional dose and/or extended dosing interval has/have been selected due to likelihood of drug accumulation in obese patient/patient with h/o CKD. Aztreonam * Continue 2 gm IV q8h for CrCl > 30 mL/min Acyclovir * Continue 430 mg (~10 mg/kg IBW of 45.5) IV q8h for CrCl > 50 mL/min Pharmacy will continue to follow and will adjust dose/frequency as necessary. Thank you.
--- NOTE | 2019-05-03 09:38 | Pharmacy Report ---
Glycemic Control Progress Note - Date of Service May 03, 2019 - Scope Glycemic Pharmacist consulted for glycemic control to write orders per [facility] inpatient glycemic control protocol. - Objective Accuchecks BSG(last 24 hours):: 05/02/19 05/02/19 05/02/19 15:05 15:11 17:20 Glucose 394 H* POC Glucose 364 H* POC Glucose (other) 422 H* 05/02/19 05/02/19 05/03/19 20:33 23:51 01:21 Glucose 109 H POC Glucose 264 H 193 H POC Glucose (other) 05/03/19 05/03/19 05/03/19 03:57 04:00 04:30 Glucose POC Glucose 65 L* 67 L* 110 H POC Glucose (other) 05/03/19 05/03/19 05/03/19 07:14 07:30 07:32 Glucose 62 L POC Glucose 62 L* 64 L* POC Glucose (other) 05/03/19 05/03/19 08:07 08:29 Glucose POC Glucose 63 L* 88 POC Glucose (other) HbA1c:: Hemoglobin A1c 8.0 % (4.5-5.6) H 05/03/19 01:21 - Recent Pertinent Medications The patient is currently receiving: * Basal insulin: U-500 ... 300 units x 1 * Correctional Insulin: Novolog Correction per scale ACHS Goal Range: Low 140 mg/dL - High 180 mg/dL Correction Factor: 10 mg/dL/unit * Prandial insulin: Per carb ratio of 1 unit per -- grams CHO consumed - Outpatient Anti-Diabetic Meds U-500 255 TIDM (TDD of 765 units/day) - Assessment & Plan ASSESSMENT: * See progress note from 05/02/19 for more background info, in short: * Pt receiving SQ basal bolus insulin regimen for hyperglycemia secondary to baseline DM (outpatient regimen on hold). Patient NPO this morning for metabolic encephalopathy. * Patient is currently receiving an average of 302 units of insulin per day * 300 units of basal insulin * 2 units of prandial/correctional insulin * BSGs ranging 193 - 422 mg/dl over the past 24hrs * Changes needed to insulin regimen: * AM Fasting BSG = 63 mg/dl. This is below goal range for patient based on inpatient targets and co-morbidities. Held U-500 insulin this morning due to persistent hypoglycemia. This is expected with U-500 as the duration of effect is longer. Went and spoke with patient's boyfriend and verified that she takes U-500 thrice daily. HOWEVER, it seems like she misses a number of doses. Per the trustedsafe system, patient's HbA1C is 8.0% and she self-adjusted insulin to 265 units TIDM (of U-500). * Extensive discussion with other pharmacist as to a plan. With patient having hypoglycemia with 300 units of U-500 insulin it is prudent to separate into NPH and Novolog, especially with NPO status continuing. U-500 acts to cover both bolus and basal insulin. The 300 units represents the patient's basal insulin ... so a decrease to 200 -250 units daily is reasonable. Will give 100 units of NPH at dinner. There is a scale for dinner. * Post-prandial BSGs cannot be evaluated. Will choose a tight parameter for dinner. * Total daily dose is TBD units. I have no data on this patient. She is NPO with questionable compliance as an outpatient. * Additional notes / comments: PLAN FOR INPATIENT GLYCEMIC CONTROL: * Starting NPH 100 units SQ BIDM * Starting correction factor of 8 mg/dl/unit * Starting carb ratio of 1 unit per 3 grams CHO consumed * Continuing goal range of Low 140 mg/dL - High 180 mg/dL RECOMMENDATIONS FOR DISCHARGE: * Continue to follow-up with [facility] pharmacist. * Please note that the plan above was derived based on current level of insulin resistance and hospital stress. These recommendations are appropriate for inpatient admission only. Plan of care upon discharge will need to be reassessed to avoid potential outpatient hypo/hyperglycemia. Thank you.
[2019-05-03] MEDS: LEVOTHYROXINE SODIUM 37.5 MCG in SYRINGE 0 ML IV SCH (10:26)
[2019-05-03] MEDS: VANCOMYCIN HCL 1,250 MG in SODIUM CHLORIDE 0.9% 250 ML IV SCH (10:27)
--- NOTE | 2019-05-03 11:38 | Hospitalist Progress Note ---
Date of Service May 03, 2019 Assessment & Plan (1) Encephalitis: h/o Zoster rash x 4 days. Placed on IV acyclovir on admission as unable to tolerate PO. Pt seemed to be better this morning for nurses, able to drink some OJ for hypoglycemic episode, but now is obtunded, febrile, tachycardic, tachypneic and septic. Urine and chest clear of infection, no rash outside of the dermatomal rash seen on her back. Boyfriend states her activities and she is inside most of the time, not indulging in outside activities where she might come in contact with mosquitoes or ticks. The patient has not been outside of [place] in the past month and she has not given or received blood in the last 3 mon ths. Obstructed hernia was considered with mild rise in lactic acid, and CT repeat was negative for bowel incarceration. Discussed peripherally with surgeon planer stone and this was considered less likely the cause of her sepsis. CT head was unremarkable for stroke or bleed or other evidence of infection. I contacted ID and LP was recommended. Radiology performed LP under fluoro with results consistent with a viral infection. Procalcitonin was unchanged and very low, so overall bacterial infection was not thought to be the cause. Also, tox screens were negative. As she had been started on the Acyclovir and vanc/Aztreonam this was continued pending further studies which were sent to a reference lab. After the LP her temp was 103F and she was given Tylenol. Her mental status started to improve and she was more lucid and able to answer questions appropriately. She was given one dose of Lasix with net positive volume overall since admission and her respiratory status improved. Daughter in [place], [place] is her POA and primary contact (not originally on the chart) and she was updated with all events of the day. (2) Severe sepsis: Plan as above. (3) Herpes zoster: Acyclovir (4) Acute decompensated heart failure: Responded well to additional dose of Lasix. Appreciate Cardiology thoughts recommendations on volume management. (5) IDDM (insulin dependent diabetes mellitus): Hyperglycemic coming in 394 with subsequent hypoglycemia overnight into the 60s. Appreciate inpatient glycemic pharmacist management of insulin for target blood sugar. (6) CKD (chronic kidney disease) stage 3, GFR 30-59 ml/min: Initial HEIDY related to sepsis has resolved. (7) Thrombocytopenia: 2/2 acute infection. No active bleeding. Cont to monitor. (8) HTN (hypertension): Holding PO BP meds while septic and obtunded. (9) CAD (coronary artery disease): No evidence of active ischemia, cont medical management with ASA, statin, Plavix, beta-nayeli, valsartan once able to tolerate PO (10) Hypothyroidism: Cont IV Synthroid. (11) DANYELLE (obstructive sleep apnea): CPAP at bedtime once mental status has improved. (12) Depression with anxiety: On Abilify, BuSpar, holding PO meds at this time. (13) H/O aortic valve replacement: AVR in 2010 with redo in 2018 TAVR last echo 01/2019 EF 70% with G1DD, patent AVR (14) DVT prophylaxis: Heparin held 10/26/ thrombocytopenia. Full Code dispo-cont PCU monitoring Annalise Escobar DO [facility] Hospitalist Subjective 58 year-old female presented to the emergency room with shortness of breath that had been ongoing for the past month. Fiance reports she had dizziness, chest pain, and constipation. Patient normally wears a CPAP but is been noncompliant per family was helping with history. In the ER she was found to be tachycardic and tachypneic with lethargy on exam. Vesicular rash was noted on her back. Lab work revealed a white blood cell count of 3, lactic acid of 4 and creatinine of 1.4. Chest x-ray revealed fluid overload with possible infiltrate. She was started on aztreonam and vancomycin which has been running overnight. Given the patient's history of severe aortic stenosis aggressive hydration was not pursued. She was given 1 L of normal saline while in the ER. She was admitted to the hospitalist service overnight and given Lasix for presumed volume overload. The patient recently was seen in the outpatient setting for treatment of her abdominal hernia. This was reducible on exam. Lactate was 4.0 initially but trended down to 1.9 the following morning. I was contacted by nurse regarding hypoglycemia. She was given insulin U-500 overnight 2 units and subsequently dropped this the low 60s. She was given half amp of D50 and blood sugar improved to 110. Again on lab work she was found to be hypoglycemic this morning. Repeat blood sugar at bedside revealed glucose at 62. She was given juice and this improved into the mid 80s. On my arrival at the bedside she is lethargic and unresponsive. She is tachycardic skin is diaphoretic. The patient appears septic on my initial impression. She is unable to give a history. Garry is at the bedside reports the patient has been constipated and has had her zoster rash since Sunday, approximately 4 days ago. Review of Systems Review of Systems: Unobtainable due to cognitive status Physical Exam Physical Exam: CONSTITUTIONAL: obese, vitals as above, lethargic, doesn't open eyes much to verbal or physical stimulation, cannot verbalize a response or follow instructions. EYES: pupils are equal and round bilaterally, normal conjunctivae ENT: MMM RESPIRATORY: clear to auscultation bilaterally, no crackles, rales or wheezes, slight tachypnea noted, on supplemental oxygen CARDIOVASCULAR: regular rate and rhythm, 3/6 ENEDINA, no gallops or rubs, no JVD, no peripheral edema GASTROINTESTINAL: soft, large pannus with hernia present but difficult to examine because of obesity and patient in obtunded state. Nondistended. MUSCULOSKELETAL: unable to obtain as pt obtunded SKIN: warm and dry, dermatomal vesicular rash on lower right back. NEUROLOGIC: obtunded Results & Data Vital Signs (Past 12 Hours) Vital Signs Temp Pulse Pulse Resp BP Pulse Ox 05/03/19 11:09 36.8 C 120 H 20 129/74 92 05/03/19 07:34 37.7 C H 112 H 19 114/62 91 05/03/19 05:53 37.7 C H 05/03/19 04:33 38.5 C H 05/03/19 03:35 37.9 C H 122 H 17 122/63 95 05/03/19 01:58 121 H 05/02/19 23:47 37.2 C 119 H 20 113/61 91 Laboratory Results Short CBC 05/03/19 05/04/19 Range/Units 12:34 01:22 WBC 4.69 L 4.00 L (4.8-10.8) K/uL Hgb 11.5 L 11.2 L (12.0-16.0) g/dL Hct 35.4 L 34.5 L (37-47) % Plt Count 70 L 64 L (130-400) K/uL BMP 05/03/19 05/04/19 12:34 01:22 Sodium 145 143 Potassium 3.7 3.4 L Chloride 108 H 107 Carbon Dioxide 30 31 BUN 15 14 Creatinine 1.05 0.98 Glucose 121 H 163 H Calcium 8.7 8.4 L Liver Function 05/03/19 Range/Units 12:34 Total Bilirubin 0.7 (0.2-1) mg/dl AST 23 (15-37) U/L ALT 18 (12-78) U/L Alkaline Phosphatase 84 (45-117) U/L Albumin 3.1 L (3.4-5.0) gm/dl Diagnostic Findings SINGLE VIEW CHEST CLINICAL HISTORY: Tachypnea. Sepsis. FINDINGS: 2 AP, portable, semierect chest radiographs are compared to study dated 05/02/2019 and correlated with chest CT dated 07/18/2017. The examination is degraded by portable technique and patient rotation. The patient is status post midline sternotomy and cardiac valve surgery. Epicardial pacing leads are noted. The heart is enlarged and there is atherosclerotic calcification of the thoracic aorta. There is pulmonary vascular congestion and mild interstitial edema. Small pleural effusions are suspected. Bibasilar opacities likely represent atelectasis. No pneumothorax is seen. The skeletal structures are osteopenic. The bony thorax is grossly intact. Increased density at the left lung base is likely related to overlying breast prosthetic. IMPRESSION: 1. Cardiomegaly with evidence of congestive failure. This is similar in appearance to yesterday. 2. Suspect trace pleural effusions. 3. No airspace consolidation is seen typical for pneumonia. CT SCAN OF THE BRAIN WITHOUT IV CONTRAST CLINICAL HISTORY: Change in mental status. COMPARISON STUDY: No priors. TECHNIQUE: Unenhanced axial CT scan of the brain is performed from the vertex to the skull base. A dose lowering technique was utilized adhering to the principles of ALARA. FINDINGS: Brain parenchyma: The brain parenchyma is normal in appearance. There is no hemorrhage, mass effect, or evidence of acute territorial ischemia by CT criteria. Neumann-white matter differentiation is preserved. No extra-axial fluid collection is seen. Ventricles, sulci, cisterns: Normal in configuration. Intracranial vasculature: The visualized intracranial vasculature at the skull base is normal in appearance. Calvarium: Unremarkable. Sinuses and mastoids: The visualized paranasal sinuses are clear. The mastoid air cells are well pneumatized. Orbits: The bony orbits are grossly intact. IMPRESSION: No acute intracranial abnormality. CT SCAN OF THE ABDOMEN AND PELVIS WITH IV CONTRAST CLINICAL HISTORY: Unspecified illness. Generalized abdominal pain. COMPARISON STUDY: Abdominal CT dated 05/02/2019. TECHNIQUE: Following the IV administration of 93 cc of Optiray 320, CT scan of the abdomen and pelvis is performed from the lung bases to the proximal femora. Images are reviewed in the axial, sagittal, and coronal planes. IV contrast was administered without complication. A dose lowering technique was utilized a dhering to the principles of ALARA. The examination is degraded by motion artifact, as well as by streak artifact from the arms which could not be elevated above the abdomen. CT DOSE: 2095.24 mGy.cm FINDINGS: Lung bases: The patient is status post midline sternotomy. Epicardial pacing leads are noted. The heart is normal in size and without pericardial effusion. There are trace pleural effusions with bibasilar atelectasis. Intralobular septal thickening is seen at the lung bases and suggests congestive failure. A left breast implant is partially visualized. Liver: The contrast-enhanced liver is enlarged, measuring 24.4 cm in length. The liver demonstrates diffusely diminished attenuation consistent with hepatic steatosis. There is no intrahepatic biliary ductal dilatation. The hepatic veins and portal veins are patent. A 2.7 cm cyst is seen in the left lobe. Gallbladder: Unremarkable. Spleen: The spleen is markedly enlarged, measuring 16.8 cm in length. Pancreas: Unremarkable. Adrenal glands: Unremarkable. Kidneys: The contrast enhanced kidneys demonstrate mild cortical atrophy and are without hydronephrosis. The kidneys enhance symmetrically. Scattered renal cysts measure up to 1.9 cm. A 1.7 cm hyperdense lesion is seen in the upper pole of the right kidney on image #135. Abdominal vasculature: The abdominal aorta is normal in course and caliber noting advanced atherosclerotic calcification. Bowel: There is laxity of the ventral abdominal wall with diastases of the rectus musculature and protrusion of abdominal contents. A small hernia containing small bowel loops is seen in the left lower abdomen on image #314. No bowel obstruction is identified. There is mild colonic fecal retention. The appendix is not identified and reported surgically absent. Peritoneum: There is no intraperitoneal free air or abdominal ascites. Foci of induration within the ventral abdominal wall are likely related to subcutaneous injections. Lymphadenopathy: None. Pelvic viscera: The bladder is decompressed around a Deutsch catheter and not well evaluated. The uterus is surgically absent. No adnexal lesion is seen. Skeletal structures: The skeletal structures are osteopenic. There is mild/moderate lumbosacral spondylosis. Degenerative sclerosis is seen in the sacroiliac joints. No lytic or blastic lesions are seen. IMPRESSION: 1. There are no acute infectious or inflammatory findings in the abdomen or pelvis. 2. There is evidence of congestive failure as well as trace pleural effusions seen at the lung bases. 3. Hepatomegaly and severe hepatic steatosis. 4. Splenomegaly. 5. There is laxity of the ventral abdominal wall with diastases of the rectus musculature and protrusion of abdominal contents. 6. A small hernia in the left lower quadrant (within the protuberant abdominal wall) contains a nonobstructed small bowel loop. 7. A 1.7 cm complex lesion is seen in the upper pole of the right kidney. This likely represent a complex/hemorrhagic cyst. Nonemergent follow-up with an outpatient renal protocol MRI is recommended for further assessment. 8. Additional findings as above. FLUOROSCOPIC GUIDED LUMBAR PUNCTURE CLINICAL HISTORY: Sepsis. Change in mental status. Encephalitis. PROCEDURE: The risks, benefits, and alternatives to the procedure were discussed with the patient's daughter who provided witnessed consent by telephone. The patient was placed prone on the fluoroscopy table. The lower back was prepped and draped in the usual sterile fashion. 1% lidocaine was used for local anes thesia. A 22-gauge spinal needle was inserted into the L4-L5 interlaminar space, opening pressures were assessed, and approximately 10 cc of clear colorless cerebrospinal fluid was removed. 4 spot images were saved. The patient tolerated the procedure well. There were no immediate complications. The patient was then returned to the medical floor for further observation. Fluoroscopy time: 1 minute 10 seconds Opening pressure: 9 cm of water IMPRESSION: Fluoroscopic guided lumbar puncture with removal of approximately 10 cc of cerebrospinal fluid. There were no immediate complications
--- NOTE | 2019-05-03 12:45 | XRay Report ---
SINGLE VIEW CHEST CLINICAL HISTORY: Tachypnea. Sepsis. FINDINGS: 2 AP, portable, semierect chest radiographs are compared to study dated 05/02/2019 and correl ated with chest CT dated 07/18/2017. The examination is degraded by portable technique and patient ro tation. The patient is status post midline sternotomy and cardiac valve surgery. Epicardial pacing l ketan are noted. The heart is enlarged and there is atherosclerotic calcification of the thoracic aort a. There is pulmonary vascular congestion and mild interstitial edema. Small pleural effusions are restrepo spected. Bibasilar opacities likely represent atelectasis. No pneumothorax is seen. The skeletal stru ctures are osteopenic. The bony thorax is grossly intact. Increased density at the left lung base is likely related to overlying breast prosthetic. IMPRESSION: 1. Cardiomegaly with evidence of congestive failure. This is similar in appearance to yesterday. 2. Suspect trace pleural effusions. 3. No airspace consolidation is seen typical for pneumonia. Electronically signed by: Miquel Almonte M.D. 05/03/2019 12:44 PM
[2019-05-03 12:53] LABS: Hematocrit (blood only) 35.4 % (37-47); Hemoglobin 11.5 g/dL (12.0-16.0); Mean Corpuscular Hgb Conc 32.5 g/dL (32-36); Mean Corpuscular Volume 90.3 fL (80-100); RDW Standard Deviation 52.6 fL (36.4-46.3); Red Blood Count 3.92 M/uL (4.2-5.4); White Blood Count 4.69 K/uL (4.8-10.8)
[2019-05-03] MEDS ORDERED: IOVERSOL 100ml IV PRN (13:10)
[2019-05-03 13:11] LABS: Mean Platelet Volume 10.6 fL (7.4-10.4); Platelet Count 70 K/uL (130-400)
[2019-05-03 13:22] LABS: Albumin Level 3.1 gm/dl (3.4-5.0); BUN Creatinine Ratio 13.9 (10-20); Calcium 8.7 mg/dl (8.5-10.1); Creatinine Clr Calc Pharmacy 60.8 ml/min; Est GFR (African American) 66.9; Est GFR (Non-African American) 57.7; Potassium 3.7 mmol/L (3.5-5.1)
[2019-05-03 13:24] LABS: Albumin Globulin Ratio 0.8 (0.9-2); Bilirubin,Total 0.7 mg/dl (0.2-1); Globulin 3.7 gm/dl (2.5-4.0); Total Protein 6.8 gm/dl (6.4-8.2)
--- NOTE | 2019-05-03 13:24 | CT Scan Report ---
CT SCAN OF THE BRAIN WITHOUT IV CONTRAST CLINICAL HISTORY: Change in mental status. COMPARISON STUDY: No priors. TECHNIQUE: Unenhanced axial CT scan of the brain is performed from the vertex to the skull base. A d ose lowering technique was utilized adhering to the principles of ALARA. FINDINGS: Brain parenchyma: The brain parenchyma is normal in appearance. There is no hemorrhage, mass effect, or evidence of acute territorial ischemia by CT criteria. Neumann-white matter differentiation is preser max. No extra-axial fluid collection is seen. Ventricles, sulci, cisterns: Normal in configuration. Intracranial vasculature: The visualized intracranial vasculature at the skull base is normal in appe arance. Calvarium: Unremarkable. Sinuses and mastoids: The visualized paranasal sinuses are clear. The mastoid air cells are well pneu matized. Orbits: The bony orbits are grossly intact. IMPRESSION: No acute intracranial abnormality. Electronically signed by: Miquel Almonte M.D. 05/03/2019 1:23 PM
[2019-05-03 13:25] LABS: Basophils # (auto) 0.01 K/uL (0-0.2); Basophils % (auto) 0.2 %; Immature Granulocytes # (auto) 0.02 K/uL (0.00-0.02); Immature Granulocytes % (auto) 0.4 %; Lymphocytes # (auto) 0.85 K/uL (1.2-3.4); Lymphocytes % (auto) 18.1 %; Monocytes # (auto) 0.38 K/uL (0.11-0.59); Monocytes % (auto) 8.1 %; Neutrophils # (auto) 3.43 K/uL (1.4-6.5); Neutrophils % (auto) 73.2 %
--- NOTE | 2019-05-03 13:37 | CT Scan Report ---
CT SCAN OF THE ABDOMEN AND PELVIS WITH IV CONTRAST CLINICAL HISTORY: Unspecified illness. Generalized abdominal pain. COMPARISON STUDY: Abdominal CT dated 05/02/2019. TECHNIQUE: Following the IV administration of 93 cc of Optiray 320, CT scan of the abdomen and pelvi s is performed from the lung bases to the proximal femora. Images are reviewed in the axial, sagittal , and coronal planes. IV contrast was administered without complication. A dose lowering technique wa s utilized adhering to the principles of ALARA. The examination is degraded by motion artifact, as w ell as by streak artifact from the arms which could not be elevated above the abdomen. CT DOSE: 2095.24 mGy.cm FINDINGS: Lung bases: The patient is status post midline sternotomy. Epicardial pacing leads are noted. The hea rt is normal in size and without pericardial effusion. There are trace pleural effusions with bibasil ar atelectasis. Intralobular septal thickening is seen at the lung bases and suggests congestive fail ure. A left breast implant is partially visualized. Liver: The contrast-enhanced liver is enlarged, measuring 24.4 cm in length. The liver demonstrates d iffusely diminished attenuation consistent with hepatic steatosis. There is no intrahepatic biliary d uctal dilatation. The hepatic veins and portal veins are patent. A 2.7 cm cyst is seen in the left lo be. Gallbladder: Unremarkable. Spleen: The spleen is markedly enlarged, measuring 16.8 cm in length. Pancreas: Unremarkable. Adrenal glands: Unremarkable. Kidneys: The contrast enhanced kidneys demonstrate mild cortical atrophy and are without hydronephros is. The kidneys enhance symmetrically. Scattered renal cysts measure up to 1.9 cm. A 1.7 cm hyperdens e lesion is seen in the upper pole of the right kidney on image #135. Abdominal vasculature: The abdominal aorta is normal in course and caliber noting advanced atheroscle rotic calcification. Bowel: There is laxity of the ventral abdominal wall with diastases of the rectus musculature and pro trusion of abdominal contents. A small hernia containing small bowel loops is seen in the left lower abdomen on image #314. No bowel obstruction is identified. There is mild colonic fecal retention. The appendix is not identified and reported surgically absent. Peritoneum: There is no intraperitoneal free air or abdominal ascites. Foci of induration within the ventral abdominal wall are likely related to subcutaneous injections. Lymphadenopathy: None. Pelvic viscera: The bladder is decompressed around a Deutsch catheter and not well evaluated. The uteru s is surgically absent. No adnexal lesion is seen. Skeletal structures: The skeletal structures are osteopenic. There is mild/moderate lumbosacral spond ylosis. Degenerative sclerosis is seen in the sacroiliac joints. No lytic or blastic lesions are seen . IMPRESSION: 1. There are no acute infectious or inflammatory findings in the abdomen or pelvis. 2. There is evidence of congestive failure as well as trace pleural effusions seen at the lung bases. 3. Hepatomegaly and severe hepatic steatosis. 4. Splenomegaly. 5. There is laxity of the ventral abdominal wall with diastases of the rectus musculature and protrus ion of abdominal contents. 6. A small hernia in the left lower quadrant (within the protuberant abdominal wall) contains a nonob structed small bowel loop. 7. A 1.7 cm complex lesion is seen in the upper pole of the right kidney. This likely represent a com plex/hemorrhagic cyst. Nonemergent follow-up with an outpatient renal protocol MRI is recommended for further assessment. 8. Additional findings as above. Electronically signed by: Miquel Almonte M.D. 05/03/2019 1:35 PM
[2019-05-03] MEDS ORDERED: FUROSEMIDE 20 MG in SYRINGE 0 ML IV ONE (15:00)
[2019-05-03 17:04] LABS: Appearance CSF Clear; CSF Count Tube # 3
[2019-05-03 17:05] LABS: CSF Xanthrochromic Xanthochromic; Color CSF PALE YELLOW; Red Blood Cell CSF (A) 0 /uL (0-); Red Blood Cell CSF (B) 0 /uL (0-); Total Protein CSF 163.1 mg/dl (15-45); White Blood Cell CSF (B) 4 /uL (0-5)
[2019-05-03 17:06] LABS: White Blood Cell CSF (A) 3 /uL (0-5)
--- NOTE | 2019-05-03 17:40 | Fluoroscopy Report ---
FLUOROSCOPIC GUIDED LUMBAR PUNCTURE CLINICAL HISTORY: Sepsis. Change in mental status. Encephalitis. PROCEDURE: The risks, benefits, and alternatives to the procedure were discussed with the patient's d jasonhter who provided witnessed consent by telephone. The patient was placed prone on the fluoroscopy table. The lower back was prepped and draped in the usual sterile fashion. 1% lidocaine was used for local anesthesia. A 22-gauge spinal needle was inserted into the L4-L5 interlaminar space, opening p ressures were assessed, and approximately 10 cc of clear colorless cerebrospinal fluid was removed. 4 spot images were saved. The patient tolerated the procedure well. There were no immediate complicati ons. The patient was then returned to the medical floor for further observation. Fluoroscopy time: 1 minute 10 seconds Opening pressure: 9 cm of water IMPRESSION: Fluoroscopic guided lumbar puncture with removal of approximately 10 cc of cerebrospinal fluid. There were no immediate complications. Electronically signed by: Miquel Almonte M.D. 05/03/2019 5:39 PM
[2019-05-03] MEDS: INSULIN HUMAN NPH SC SCH (18:21)
--- NOTE | 2019-05-03 19:44 | Infectious Disease Consult ---
Date of Consultation May 03, 2019 Assessment & Plan (1) Sepsis: 58-year-old female with clinical picture of sepsis with encephalopathy, source not entirely clear, but given likely zoster infection, worry about possibility of zoster encephalitis although CSF findings speak against this pedro gnosis. For now, patient should be continued on broad-spectrum antibiotics and acyclovir pending further culture results and CSF findings. Case discussed with hospitalist service. Will follow. (2) Infectious encephalopathy: (3) Herpes zoster: History of Present Illness Reason for Consultation: Septic, shingles, altered mental status Attending Physician: Annalise Escobar DO History of Present Illness . History obtained from medical records and medical staff as patient unable to provide adequate history. 58-year-old female with complicated medical history including diabetes mellitus, aortic valve disease status post AVR and TAVR, stage III chronic kidney disease, diastolic heart failure, who was admitted with 1 to 2-day history of increasing shortness of breath, cough, and low-grade fevers. Has become acutely encephalopathic with evidence of sepsis, and as discussed is undergone lumbar puncture with finding of relatively benign CSF. Recently developed rash consistent with zoster involving her right lower back, and has been started on IV acyclovir as discussed. No obvious significant travel or exposure history. Question of pneumonia on chest x-ray, procalcitonin has been low. Cultures have been negative today. Allergies Allergy/AdvReac Type Severity Reaction Status Date / Time lisinopril Allergy Unknown unk Verified 07/03/18 07:56 Penicillins Allergy Unknown . Verified 07/03/18 07:56 adhesive tape Allergy CAN NOT Verified 05/02/19 17:36 TOLERATE BANDAIDS monosodium glutamate Allergy EDEMA OF Verified 05/02/19 17:36 HANDS & FEET Home Medications Home Medications Medication Instructions Recorded Confirmed Type Humulin R U-500 (Conc) Kwikpen 255 unit SUBCUT AC 05/02/19 05/02/19 History Systane (PF) 1 drp OPHTHALMIC (EYE) UD PRN 05/02/19 05/02/19 History ammonium lactate 1 applic TOPICAL BID 05/02/19 05/02/19 History aripiprazole [Abilify] 30 mg PO QAM 05/02/19 05/02/19 History aspirin [Aspir-81] 81 mg PO DAILY 05/02/19 05/02/19 History atorvastatin [Lipitor] 40 mg PO DAILY 05/02/19 05/02/19 History buspirone 15 mg PO BID 05/02/19 05/02/19 History chromium picolinate 200 mcg PO DAILY 05/02/19 05/02/19 History clopidogrel [Plavix] 75 mg PO DAILY 05/02/19 05/02/19 History cyclobenzaprine 10 mg PO HS PRN 05/02/19 05/02/19 History docusate sodium [Colace] 100 mg PO DAILY 05/02/19 05/02/19 History fluoxetine [Prozac] 20 mg PO DAILY 05/02/19 05/02/19 History furosemide [Lasix] 40 mg PO DAILY PRN 05/02/19 05/02/19 History hydrocortisone acetate [Anusol-HC] 25 mg TX HS 05/02/19 05/02/19 History levothyroxine 75 mcg PO DAILY 05/02/19 05/02/19 History meclizine 50 mg PO BID 05/02/19 05/02/19 History melatonin 15 mg PO HS 05/02/19 05/02/19 History metoprolol tartrate [Lopressor] 50 mg PO BID 05/02/19 05/02/19 History multivitamin 1 tab PO DAILY 05/02/19 05/02/19 History nystatin [Nyamyc] 1 applic TOPICAL TID 05/02/19 05/02/19 History omega 0-xlq-gry-fish oil [Fish Oil] 1 cap PO DAILY 05/02/19 05/02/19 History pregabalin [Lyrica] 75 mg PO BID 05/02/19 05/02/19 History torsemide 20 mg PO BID 05/02/19 05/02/19 History valsartan [Diovan] 20 mg PO DAILY 05/02/19 05/02/19 History vitamin B complex 1 tab PO DAILY 05/02/19 05/02/19 History spironolactone 12.5 mg PO DAILY 05/05/19 05/05/19 History potassium chloride [Klor-Con M20] 20 meq PO BID 7 Days #14 tab 05/07/19 Rx valacyclovir 1,000 mg PO Q8H 16 Days #96 tab 05/07/19 Rx Patient History Medical History CAD (coronary artery disease) (Chronic) Colon cancer (Resolved) Breast cancer (Resolved) Aortic valvar stenosis (Chronic) Cataract (Chronic) Dyslipidemia (Chronic) Heart failure (Chronic) HTN (hypertension) (Chronic) Hypothyroidism (Chronic) DANYELLE (obstructive sleep apnea) (Chronic) Depression with anxiety (Chronic) History of removal of breast implant (Chronic) "Left " Anxiety Aortic valve stenosis Breast cancer, right breast 2007--Sx, chemo/radiation Cardiac murmur Follows with Dr. Muniz Cataract of both eyes Colon cancer 2004--sx, no chemo or radiation Depression Diabetes mellitus, type 2 Hyperlipidemia Hypertension Hypothyroidism Liver cirrhosis non-alcoholic On anticoagulant therapy Sleep apnea Cpap Uterine cancer 2014--sx, no chemo/radiation Surgical History History of percutaneous coronary intervention (Chronic) prior to TAVR in order to protect her left main, she also had a 3.5 x 23 millimeter drug-eluting stent placed in the left main/LAD, which was expanded out into the aorta. H/O aortic valve replacement (Chronic) #25 Manga aortic valve bioprosthesis placed in 2010, and 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 On 11/06/2017 she underwent transcatheter aortic valve replacement receiving a 26 mm Hernandez-Bing S3 prosthesis History of carpal tunnel surgery of left wrist (Chronic) TAVR 2017 History of carpal tunnel surgery of right wrist (Chronic) Previous section (Chronic) H/O colonoscopy (Chronic) S/P mastectomy, bilateral (Chronic) History of partial colectomy (Chronic) History of appendectomy (Chronic) History of hysterectomy with bilateral oophorectomy (Chronic) H/O aortic valve replacement 06/2017 @ [facility] [place] Cris H/O bilateral mastectomy 01/2008--breast cancer H/O breast biopsy right--malignant H/O breast surgery L implant infected and was removed History of appendectomy History of bilateral tubal ligation History of bowel resection 2004 @ [facility] [place] Joyce d/t Colon Cancer History of breast reconstruction Bilt breast after masectomy History of cardiac cath x2--2010 @ [facility] 07/2017 @ [facility]-no stent, follows with Dr. Muniz History of carpal tunnel release bilt History of section x4 History of colonoscopy History of dilatation and curettage History of esophagogastroduodenoscopy (EGD) History of open heart surgery 2011 @ [facility] [place] History of total abdominal hysterectomy and bilateral salpingo-oophorectomy 2014 D/T uterine cancer S/P foot surgery, right "foot was widening" Family History Grandmother Family history of diabetes mellitus maternal Family/Other Family history of diabetes mellitus paternal aunt Father , of premature CAD Coronary heart disease Mother , of premature CAD Coronary heart disease Social History Preferred Language: Czech Communication Ability: Effective 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 Beliefs That Will Affect Care: None marital status: Single marital status details: has fiance Current Living Situation: Alone Feels Safe at Home: Yes Smoking Status: Never smoker Second Hand Exposure: Yes (PARENTS SMOKE) ; Hx Alcohol Use: No Hx Substance Use: No Review of Systems Review of Systems: Unobtainable due to cognitive status Physical Exam Constitutional: WD/WN, vitals as above + obese; no acute distress Eyes: PERRL, conjunctivae normal, anicteric sclerae ENMT: external ear and nose normal, oropharynx normal Neck: trachea midline, no thyromegaly neck nontender Respiratory: normal respiratory effort, lungs clear to auscultation normal percussion; does not use accessory muscles Cardiovascular: Rate/Rhythm: regular rate and regular rhythm Heart Sounds: normal S1 and normal S2; no gallop, no murmur and no cardiac rub Vessels: normal peripheral pulses; no JVD Gastrointestinal (Abdomen): normal bowel sounds, soft, nontender, no hepatosplenomegaly Musculoskeletal: no cyanosis or clubbing, extremities motor strength 5/5 Spine: thoracic spine normal to inspection and lumbar spine normal to inspection; no cervical spinal tenderness Skin: no rashes, warm and dry normal turgor; no lesions Neurologic: moves all extremities and awake; no focal motor deficits Psychiatric: Orientation: alert; + not oriented x 3 Lymphatic: no cervical or axillary lymphadenopathy no inguinal lymphadenopathy Results & Data Vital Signs (Past 12 Hours) Vital Signs Temp Pulse Pulse Resp BP Pulse Ox 05/03/19 19:36 37.4 C 110 H 18 110/65 91 05/03/19 18:17 38.3 C H 104 H 20 92/53 L 92 05/03/19 17:21 39.0 C H 05/03/19 17:09 114 H 16 91/47 L 92 05/03/19 17:00 124 H 05/03/19 16:48 36.8 C 117 H 22 94 05/03/19 16:35 39.3 C H 127 H 22 122/66 91 05/03/19 14:10 38.7 C H 05/03/19 11:09 36.8 C 120 H 20 129/74 92 05/03/19 08:00 120 H Laboratory Results Short CBC 05/03/19 05/03/19 05/03/19 Range/Units 01:21 07:14 12:34 WBC 3.57 L 5.54 4.69 L (4.8-10.8) K/uL Hgb 11.8 L 11.4 L 11.5 L (12.0-16.0) g/dL Hct 36.3 L 35.0 L 35.4 L (37-47) % Plt Count 89 L 79 L 70 L (130-400) K/uL BMP 05/03/19 05/03/19 05/03/19 01:21 07:14 12:34 Sodium 144 146 H 145 Potassium 3.4 L D 3.5 3.7 Chloride 104 108 H 108 H Carbon Dioxide 35 H 32 30 BUN 25 H 20 H 15 Creatinine 1.19 1.05 1.05 Glucose 109 H 62 L 121 H Calcium 9.4 9.2 8.7 Liver Function 05/03/19 05/03/19 Range/Units 01:21 12:34 Total Bilirubin 0.5 0.7 (0.2-1) mg/dl AST 19 23 (15-37) U/L ALT 19 18 (12-78) U/L Alkaline Phosphatase 72 84 (45-117) U/L Albumin 3.4 3.1 L (3.4-5.0) gm/dl Diagnostic Findings Microbiology 05/03/19 15:50 Cerebral Spinal Fluid Cryptococcal Antigen Test - Final 05/03/19 15:50 Cerebral Spinal Fluid Gram Stain - Preliminary 05/02/19 15:20 Blood Aerobic Blood Culture - Preliminary No growth in Aerobic bottle after 24 hours. 05/02/19 15:05 Blood Aerobic Blood Culture - Preliminary No growth in Aerobic bottle after 24 hours. cc: ~ CT SCAN OF THE ABDOMEN AND PELVIS WITH IV CONTRAST CLINICAL HISTORY: Unspecified illness. Generalized abdominal pain. COMPARISON STUDY: Abdominal CT dated 05/02/2019. TECHNIQUE: Following the IV administration of 93 cc of Optiray 320, CT scan of the abdomen and pelvis is performed from the lung bases to the proximal femora. Images are reviewed in the axial, sagittal, and coronal planes. IV contrast was administered without complication. A dose lowering technique was utilized adhering to the principles of ALARA. The examination is degraded by motion artifact, as well as by streak artifact from the arms which could not be elevated above the abdomen. CT DOSE: 2095.24 mGy.cm FINDINGS: Lung bases: The patient is status post midline sternotomy. Epicardial pacing leads are noted. The heart is normal in size and without pericardial effusion. There are trace pleural effusions with bibasilar atelectasis. Intralobular septal thickening is seen at the lung bases and suggests congestive failure. A left breast implant is partially visualized. Liver: The contrast-enhanced liver is enlarged, measuring 24.4 cm in length. The liver demonstrates diffusely diminished attenuation consistent with hepatic steatosis. There is no intrahepatic biliary ductal dilatation. The hepatic veins and portal veins are patent. A 2.7 cm cyst is seen in the left lobe. Gallbladder: Unremarkable. Spleen: The spleen is markedly enlarged, measuring 16.8 cm in length. Pancreas: Unremarkable. Adrenal glands: Unremarkable. Kidneys: The contrast enhanced kidneys demonstrate mild cortical atrophy and are without hydronephrosis. The kidneys enhance symmetrically. Scattered renal cysts measure up to 1.9 cm. A 1.7 cm hyperdense lesion is seen in the upper pole of the right kidney on image #135. Abdominal vasculature: The abdominal aorta is normal in course and caliber noting advanced atherosclerotic calcification. Bowel: There is laxity of the ventral abdominal wall with diastases of the rectus musculature and protrusion of abdominal contents. A small hernia conta ining small bowel loops is seen in the left lower abdomen on image #314. No bowel obstruction is identified. There is mild colonic fecal retention. The appendix is not identified and reported surgically absent. Peritoneum: There is no intraperitoneal free air or abdominal ascites. Foci of induration within the ventral abdominal wall are likely related to subcutaneous injections. Lymphadenopathy: None. Pelvic viscera: The bladder is decompressed around a Deutsch catheter and not well evaluated. The uterus is surgically absent. No adnexal lesion is seen. Skeletal structures: The skeletal structures are osteopenic. There is mild/moderate lumbosacral spondylosis. Degenerative sclerosis is seen in the sacroiliac joints. No lytic or blastic lesions are seen. IMPRESSION: 1. There are no acute infectious or inflammatory findings in the abdomen or pelvis. 2. There is evidence of congestive failure as well as trace pleural effusions seen at the lung bases. 3. Hepatomegaly and severe hepatic steatosis. 4. Splenomegaly. 5. There is laxity of the ventral abdominal wall with diastases of the rectus musculature and protrusion of abdominal contents. 6. A small hernia in the left lower quadrant (within the protuberant abdominal wall) contains a nonobstructed small bowel loop. 7. A 1.7 cm complex lesion is seen in the upper pole of the right kidney. This likely represent a complex/hemorrhagic cyst. Nonemergent follow-up with an outpatient renal protocol MRI is recommended for further assessment. 8. Additional findings as above. Electronically signed by: Miquel Almonte M.D. 05/03/2019 1:35 PM Dictated: 05/03/19 1325 PG Care Time/CCT Total # of Minutes Spent Total Time Spent with Patient: Total time spent is greater than 50% in coordination of care (as documented) at patient's floor/unit and/or counseling patient: (1) Sepsis Sepsis acute organ dysfunction status: unspecified Sepsis type: sepsis due to unspecified organism Qualified Code(s): A41.9 - Sepsis, unspecified organism
[2019-05-04] MEDS ORDERED: INSULIN HUMAN NPH SC SCH
[2019-05-04] MEDS ORDERED: VANCOMYCIN TROUGH ONE (01:30)
[2019-05-04 01:37] LABS: Hematocrit (blood only) 34.5 % (37-47); Hemoglobin 11.2 g/dL (12.0-16.0); Mean Corpuscular Hgb Conc 32.5 g/dL (32-36); Mean Corpuscular Volume 90.6 fL (80-100); RDW Coefficient of Variation 16.3 % (11.5-14.5); RDW Standard Deviation 53.7 fL (36.4-46.3); Red Blood Count 3.81 M/uL (4.2-5.4)
[2019-05-04 01:42] LABS: Mean Platelet Volume 10.3 fL (7.4-10.4); Platelet Count 64 K/uL (130-400)
[2019-05-04 01:54] LABS: BUN Creatinine Ratio 14.1 (10-20); Calcium 8.4 mg/dl (8.5-10.1); Creatinine Clr Calc Pharmacy 65.1 ml/min; Est GFR (African American) 72.7; Est GFR (Non-African American) 62.7; Magnesium 2.1 mg/dl (1.8-2.4); Potassium 3.4 mmol/L (3.5-5.1)
[2019-05-04 02:03] LABS: Phosphorus 3.7 mg/dl (2.5-4.9)
[2019-05-04] MEDS: VANCOMYCIN HCL 1,250 MG in SODIUM CHLORIDE 0.9% 250 ML IV SCH ×2 (02:17→20:12)
[2019-05-04] MEDS: AZTREONAM 2,000 MG in DEXTROSE 5% 100 ML IV SCH ×3 (02:17→18:49)
--- NOTE | 2019-05-04 04:13 | Pharmacy Report ---
Pharmacy Abx Dose Short Note - Date of Service May 04, 2019 - Assessment & Plan Laboratory Tests 05/04/19 05/04/19 05/04/19 01:22 01:22 01:22 WBC 4.00 L Creatinine 0.98 Est Cr Clr Drug Dosing 65.1 Vancomycin Trough 9.1 Plan: Vanc-IV: * Trough level of 9.1 mcg/mL is subtherapeutic BUT also not at [facility] yet. This early trough was drawn to better assess potential for drug accumulation in this morbidly obese patient. * Continue VANC 1250mg (~12.5mg/kg) IV every 16 hours * This less than traditional maintenance dose was selected due to likelihood of drug accumulation over time in this obese patient. * Goal trough level: ~15 mcg/mL * Will reorder VANC Trough @ [facility] prior to 05/05/19 0930 dose Pharmacy will continue to follow and will adjust dose/frequency as necessary. Thank you.
[2019-05-04] MEDS: ACYCLOVIR SOD IV SCH ×3 (04:23→20:12)
[2019-05-04] MEDS: DEXTROSE 5% IV SCH ×3 (04:23→20:12)
[2019-05-04] MEDS: INSULIN HUMAN NPH SC SCH ×2 (07:57→17:39)
[2019-05-04] MEDS: INSULIN ASPART 100 UNITS/ML 3 ML PEN SC SCH ×4 (07:58→20:27)
[2019-05-04] MEDS: ACETAMINOPHEN 325 MG TAB PO PRN ×2 (08:06→14:49)
[2019-05-04] MEDS: LEVOTHYROXINE SODIUM 37.5 MCG in SYRINGE 0 ML IV SCH (09:54)
--- NOTE | 2019-05-04 10:27 | Pharmacy Report ---
Pharmacy Glycemic Short Note 2 - Date of Service May 04, 2019 - Glycemic Short BSG Results (Last 24 hours): 05/03/19 05/03/19 05/03/19 11:07 12:34 16:32 Glucose 121 H POC Glucose 85 147 H 05/03/19 05/04/19 05/04/19 20:37 00:09 01:22 Glucose 163 H POC Glucose 124 H 146 H 05/04/19 05/04/19 04:05 07:34 Glucose POC Glucose 210 H 260 H OUTPATIENT ANTIDIABETIC REGIMEN: * U-500 - 255units TID with meals * A1c 8.0% 05/03/19 ASSESSMENT: 05/04/19 * Blood sugars elevated this morning and at lunch, patient only had 100 units of NPH yesterday, still NPO, seen by cardio, transesophageal echo. * Will give extra dose of NPH at lunch then increase dose starting tomorrow morning. 05/03/19 * AM Fasting BSG = 63 mg/dl. This is below goal range for patient based on inpatient targets and co-morbidities. Held U-500 insulin this morning due to persistent hypoglycemia. This is expected with U-500 as the duration of effect is longer. Went and spoke with patient's boyfriend and verified that she takes U-500 thrice daily. HOWEVER, it seems like she misses a number of doses. Per the [employer] system, patient's HbA1C is 8.0% and she self-adjusted insu mandi to 265 units TIDM (of U-500). * Extensive discussion with other pharmacist as to a plan. With patient having hypoglycemia with 300 units of U-500 insulin it is prudent to separate into NPH and Novolog, especially with NPO status continuing. U-500 acts to cover both bolus and basal insulin. The 300 units represents the patient's basal insulin ... so a decrease to 200 -250 units daily is reasonable. Will give 100 units of NPH at dinner. There is a scale for dinner. * Post-prandial BSGs cannot be evaluated. Will choose a tight parameter for dinner. * Total daily dose is TBD units. I have no data on this patient. She is NPO with questionable compliance as an outpatient. 05/02/19 * 58 year old female admitted with severe sepsis, resp failure, decompensating CHF. Type 2 diabetic on 765 units of insulin per day, using U500. * Patient unable to talk with me, metabolic encephalopathy, NPO * Nurse was able to tell me that patient has not received any insulin today. * Blood sugars elevated 300-400s, no anion gap, will give one time dose of U500 to make up for deficits today and check blood sugar q4h overnight, further U500 dosing tomorrow. * Start insulin drip if patient blood sugar remains over 300 overnight. PLAN FOR INPATIENT GLYCEMIC CONTROL: * NPH 100 units BID with breakfast and dinner, 50 units with lunch today then * NPH 130 units BID with breakfast and dinner starting tomorrow * Bolus insulin * NovoLog per scale Q4H * Goal Range: Low 140 mg/dL - High 180 mg/dL - higher goal range for pt w/ hypoglycemia * Correction Factor: 8 mg/dL/unit * Carb ratio: 1 unit per 3 grams CHO consumed
--- NOTE | 2019-05-04 10:53 | Cardiology Consultation ---
Date of Consultation May 04, 2019 Assessment & Plan (1) Encephalitis: (2) Sepsis: (3) S/P TAVR (transcatheter aortic valve replacement): (4) Zoster: The patient is medically more stable today. She feels improvement whether that is due to IV hydration, antibiotics or antiviral agents is unknown at this time. Although this could be disseminated zoster, her Royal was at the end of last year so it is not quite been a full year and there is always a possibility of endocarditis. 1 of her blood cultures is growing gram-positive cocci and we will await the final results. Infectious disease help is appreciated. I will order a transthoracic echocardiogram. Pending final results of the blood cultures, transthoracic echocardiogram and clinical course, the patient may benefit from a transesophageal echocardiogram. History of Present Illness Attending Physician: Annalise Escobar, History of Present Illness This is a 58-year-old female with a history of a schizoaffective disorder, who has been followed by Dr. Bernal with a history of aortic stenosis that was first treated with a bioprosthetic valve and open heart surgery in 2010. 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 At that time she also received a stent within her left main trunk. The patient was admitted with a septic type picture with fever and metabolic encephalopathy along with zoster. 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 She is now on IV acyclovir along with antibiotics and today she states she is feeling much improved. She is alert and oriented and able to hold a discussion with me. Her medical history is outlined below. Past Medical History: 1. Hypertension 2. Type 2 diabetes mellitus 3. Dyslipidemia 4. Aortic valve stenosis status post 25 mm bioprosthetic aortic valve replacement 2010, and 2017 TAVR due to prostetic valve stenosis. At time of TAVR, had coronary stent placed LMT. 5. Hypothyroidism 6. Breast carcinoma for which she underwent x-ray therapy, and chemotherapy 7. Colon cancer 8. Obstructive sleep apnea on CPAP 9. Obesity, body mass index greater than 40 Past Surgical History: 1. Status post bioprosthetic aortic valve replacement 2. Partial colectomy for stage I colon cancer 3. Bilateral mastectomies 4. Removal of right breast implant in 2009 due to infection, and this was not replaced 5. Hysteroscopy with biopsy 6. Transesophageal echocardiogram April, Allergies Allergy/AdvReac Type Severity Reaction Status Date / Time lisinopril Allergy Unknown unk Verified 07/03/18 07:56 Penicillins Allergy Unknown . Verified 07/03/18 07:56 adhesive tape Allergy CAN NOT Verified 05/02/19 17:36 TOLERATE BANDAIDS monosodium glutamate Allergy EDEMA OF Verified 05/02/19 17:36 HANDS & FEET Home Medications Home Medications Medication Instructions Recorded Confirmed Type ammonium lactate 1 applic TOPICAL BID 05/02/19 05/02/19 History aripiprazole [Abilify] 30 mg PO QAM 05/02/19 05/02/19 History aspirin [Aspir-81] 81 mg PO DAILY 05/02/19 05/02/19 History atorvastatin [Lipitor] 40 mg PO DAILY 05/02/19 05/02/19 History buspirone 15 mg PO BID 05/02/19 05/02/19 History chromium picolinate 200 mcg PO DAILY 05/02/19 05/02/19 History clopidogrel [Plavix] 75 mg PO DAILY 05/02/19 05/02/19 History cyclobenzaprine 10 mg PO HS PRN 05/02/19 05/02/19 History docusate sodium [Colace] 100 mg PO DAILY 05/02/19 05/02/19 History fluoxetine [Prozac] 20 mg PO DAILY 05/02/19 05/02/19 History furosemide [Lasix] 40 mg PO DAILY PRN 05/02/19 05/02/19 History hydrocortisone acetate [Anusol-HC] 25 mg [place] HS 05/02/19 05/02/19 History insulin regular hum U-500 conc 255 unit SUBCUT AC 05/02/19 05/02/19 History [Humulin R U-500 (Conc) Kwikpen] levothyroxine 75 mcg PO DAILY 05/02/19 05/02/19 History meclizine 50 mg PO BID 05/02/19 05/02/19 History melatonin 15 mg PO HS 05/02/19 05/02/19 History metoprolol tartrate [Lopressor] 50 mg PO BID 05/02/19 05/02/19 History multivitamin 1 tab PO DAILY 05/02/19 05/02/19 History nystatin [Nyamyc] 1 applic TOPICAL TID 05/02/19 05/02/19 History omega 1-rgk-kyp-fish oil [Fish Oil] 1 cap PO DAILY 05/02/19 05/02/19 History peg 400-propylene glycol (PF) 1 drp OPHTHALMIC (EYE) UD PRN 05/02/19 05/02/19 History [Systane (PF)] pregabalin [Lyrica] 75 mg PO BID 05/02/19 05/02/19 History torsemide 20 mg PO BID 05/02/19 05/02/19 History valsartan [Diovan] 20 mg PO DAILY 05/02/19 05/02/19 History vitamin B complex 1 tab PO DAILY 05/02/19 05/02/19 History Patient History Medical History CAD (coronary artery disease) (Chronic) Colon cancer (Resolved) Breast cancer (Resolved) Aortic valvar stenosis (Chronic) Cataract (Chronic) Dyslipidemia (Chronic) Heart failure (Chronic) HTN (hypertension) (Chronic) Hypothyroidism (Chronic) DANYELLE (obstructive sleep apnea) (Chronic) Depression with anxiety (Chronic) History of removal of breast implant (Chronic) "Left " Anxiety Aortic valve stenosis Breast cancer, right breast 2007--Sx, chemo/radiation Cardiac murmur Follows with Dr. Muniz Cataract of both eyes Colon cancer 2004--sx, no chemo or radiation Depression Diabetes mellitus, type 2 Hyperlipidemia Hypertension Hypothyroidism Liver cirrhosis non-alcoholic On anticoagulant therapy Sleep apnea Cpap Uterine cancer 2014--sx, no chemo/radiation Surgical History History of percutaneous coronary intervention (Chronic) prior to TAVR in order to protect her left main, she also had a 3.5 x 23 millimeter drug-eluting stent placed in the left main/LAD, which was expanded out into the aorta. H/O aortic valve replacement (Chronic) #25 Manga aortic valve bioprosthesis placed in 2010, and 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 On 11/06/2017 she underwent transcatheter aortic valve replacement receiving a 26 mm Hernandez-Bing S3 prosthesis History of carpal tunnel surgery of left wrist (Chronic) TAVR 2017 History of carpal tunnel surgery of right wrist (Chronic) Previous section (Chronic) H/O colonoscopy (Chronic) S/P mastectomy, bilateral (Chronic) History of partial colectomy (Chronic) History of appendectomy (Chronic) History of hysterectomy with bilateral oophorectomy (Chronic) H/O aortic valve replacement 06/2017 [place] [facility] [place] H/O bilateral mastectomy 01/2008--breast cancer H/O breast biopsy right--malignant H/O breast surgery L implant infected and was removed History of appendectomy History of bilateral tubal ligation History of bowel resection 2004 @ [facility] [place] d/t Colon Cancer History of breast reconstruction Bilt breast after masectomy History of cardiac cath x2--2010 @ [facility] 07/2017 @ [facility]-no stent, follows with Dr. Muniz History of carpal tunnel release bilt History of section x4 History of colonoscopy History of dilatation and curettage History of esophagogastroduodenoscopy (EGD) History of open heart surgery 2011 [facility] History of total abdominal hysterectomy and bilateral salpingo-oophorectomy 2014 D/T uterine cancer S/P foot surgery, right "foot was widening" Family History Grandmother Family history of diabetes mellitus maternal Family/Other Family history of diabetes mellitus paternal aunt Father , of premature CAD Coronary heart disease Mother , of premature CAD Coronary heart disease Social History Preferred Language: British Communication Ability: Effective Insurance Operations Rep Required: No Beliefs That Will Affect Care: None marital status: Single marital status details: has fiance Current Living Situation: Alone Other Information That Helps Us Care for You: No Feels Safe at Home: Yes Safety Concerns: Feels Safe At This Time Smoking Status: Never smoker Second Hand Exposure: Yes (PARENTS SMOKE) ; Hx Alcohol Use: No Hx Substance Use: No Review of Systems Review of Systems: All systems reviewed & are unremarkable except as noted in HPI & below Nothing additional to add. Physical Exam Physical Exam: General: no acute distress and stated age Head: normocephalic, no masses, lesions, tenderness or abnormalities Eyes: conjunctiva are pink and non-injected, sclera clear Neck: supple, no adenopathy, no bruits, normal jugular venous pulse, no hepatojugular reflux Chest: She has evidence of previous breast surgery as well as open heart surgery. Lungs: clear to auscultation and percussion Cardiac Exam: - regular rate & rhythm, slight systolic murmur- normal S1, normal S2 Pulses: 2(+) throughout Abdomen: abdomen soft, non-tender, no abnormal masses and no hepatosplenomegaly Musculoskeletal: no gait disturbance, no joint inflammation, no deforming arthritis Extremities: no edema and no cyanosis Neuro: grossly normal exam Results & Data Vital Signs (Past 12 Hours) Vital Signs Temp Pulse Pulse Resp BP Pulse Ox 05/04/19 08:00 104 H 05/04/19 07:32 37.2 C 107 H 19 110/66 95 05/04/19 04:00 36.9 C 109 H 20 127/71 94 05/03/19 23:20 37.3 C 104 H 18 107/68 94 Laboratory Results Laboratory Results - last 24 hr 05/03/19 05/03/19 05/03/19 11:07 12:34 12:34 WBC 4.69 L RBC 3.92 L Hgb 11.5 L Hct 35.4 L MCV 90.3 MCH 29.3 MCHC 32.5 RDW Std Deviation 52.6 H RDW Coeff of Valerio 16.0 H Plt Count 70 L MPV 10.6 H Immature Gran % (Auto) 0.4 Neut % (Auto) 73.2 Lymph % (Auto) 18.1 [place] % (Auto) 8.1 Eos % (Auto) 0.0 Baso % (Auto) 0.2 Immature Gran # (Auto) 0.02 Neut # (Auto) 3.43 Lymph # (Auto) 0.85 L [place] # (Auto) 0.38 Eos # (Auto) 0.00 Baso # (Auto) 0.01 Sodium 145 Potassium 3.7 Chloride 108 H Carbon Dioxide 30 Anion Gap 7.0 BUN 15 Creatinine 1.05 Est Cr Clr Drug Dosing 60.8 Est GFR ( Amer) 66.9 Est GFR (Non-Af Amer) 57.7 BUN/Creatinine Ratio 13.9 Glucose 121 H POC Glucose 85 Lactate Calcium 8.7 Phosphorus Magnesium Total Bilirubin 0.7 AST 23 ALT 18 Alkaline Phosphatase 84 Total Protein 6.8 Albumin 3.1 L Globulin 3.7 Albumin/Globulin Ratio 0.8 L Procalcitonin Fld Lyme DNA (PCR) CSF Appearance CSF Color Xanthrochromic CSF WBC CSF RBC CSF Cell Count Tube # CSF Chemistry Tube # CSF Glucose CSF Total Protein CSF [place] IgM Ab Vancomycin Trough Salicylates Ethyl Alcohol mg/dL Lyme Specimen Source [place] RNA (RT-PCR) Herpes Virus Source HSV I DNA PCR HSV II DNA PCR Varicella-Zoster Source VZV DNA (PCR) 05/03/19 05/03/19 05/03/19 12:34 12:34 12:34 WBC RBC Hgb Hct MCV MCH MCHC RDW Std Deviation RDW Coeff of Valerio Plt Count MPV Immature Gran % (Auto) Neut % (Auto) Lymph % (Auto) [place] % (Auto) Eos % (Auto) Baso % (Auto) Immature Gran # (Auto) Neut # (Auto) Lymph # (Auto) [place] # (Auto) Eos # (Auto) Baso # (Auto) Sodium Potassium Chloride Carbon Dioxide Anion Gap BUN Creatinine Est Cr Clr Drug Dosing Est GFR ( Amer) Est GFR (Non-Af Amer) BUN/Creatinine Ratio Glucose POC Glucose Lactate 2.2 H* Calcium Phosphorus Magnesium Total Bilirubin AST ALT Alkaline Phosphatase Total Protein Albumin Globulin Albumin/Globulin Ratio Procalcitonin 0.41 Fld Lyme DNA (PCR) CSF Appearance CSF Color Xanthrochromic CSF WBC CSF RBC CSF Cell Count Tube # CSF Chemistry Tube # CSF Glucose CSF Total Protein CSF [place] IgM Ab Vancomycin Trough Salicylates < 1.7 L Ethyl Alcohol mg/dL Lyme Specimen Source [place] RNA (RT-PCR) Herpes Virus Source HSV I DNA PCR HSV II DNA PCR Varicella-Zoster Source VZV DNA (PCR) 05/03/19 05/03/19 05/03/19 12:51 15:50 15:50 WBC RBC Hgb Hct MCV MCH MCHC RDW Std Deviation RDW Coeff of Valerio Plt Count MPV Immature Gran % (Auto) Neut % (Auto) Lymph % (Auto) [place] % (Auto) Eos % (Auto) Baso % (Auto) Immature Gran # (Auto) Neut # (Auto) Lymph # (Auto) [place] # (Auto) Eos # (Auto) Baso # (Auto) Sodium Potassium Chloride Carbon Dioxide Anion Gap BUN Creatinine Est Cr Clr Drug Dosing Est GFR ( Amer) Est GFR (Non-Af Amer) BUN/Creatinine Ratio Glucose POC Glucose Lactate Calcium Phosphorus Magnesium Total Bilirubin AST ALT Alkaline Phosphatase Total Protein Albumin Globulin Albumin/Globulin Ratio Procalcitonin Fld Lyme DNA (PCR) CSF Appearance CSF Color Xanthrochromic CSF WBC CSF RBC CSF Cell Count Tube # CSF Chemistry Tube # 1 CSF Glucose 78 H CSF Total Protein 163.1 H CSF [place] IgM Ab Vancomycin Trough Salicylates Ethyl Alcohol mg/dL < 3.0 Lyme Specimen Source [place] RNA (RT-PCR) Herpes Virus Source Pending HSV I DNA PCR Pending HSV II DNA PCR Pending Varicella-Zoster Source VZV DNA (PCR) 05/03/19 05/03/19 05/03/19 15:50 15:50 15:50 WBC RBC Hgb Hct MCV MCH MCHC RDW Std Deviation RDW Coeff of Valerio Plt Count MPV Immature Gran % (Auto) Neut % (Auto) Lymph % (Auto) [place] % (Auto) Eos % (Auto) Baso % (Auto) Immature Gran # (Auto) Neut # (Auto) Lymph # (Auto) [place] # (Auto) Eos # (Auto) Baso # (Auto) Sodium Potassium Chloride Carbon Dioxide Anion Gap BUN Creatinine Est Cr Clr Drug Dosing Est GFR ( Amer) Est GFR (Non-Af Amer) BUN/Creatinine Ratio Glucose POC Glucose Lactate Calcium Phosphorus Magnesium Total Bilirubin AST ALT Alkaline Phosphatase Total Protein Albumin Globulin Albumin/Globulin Ratio Procalcitonin Fld Lyme DNA (PCR) CSF Appearance Clear CSF Color PALE YELLOW Xanthrochromic Xanthochromic CSF WBC 3 CSF RBC 0 CSF Cell Count Tube # 3 CSF Chemistry Tube # CSF Glucose CSF Total Protein CSF [place] IgM Ab Pending Vancomycin Trough Salicylates Ethyl Alcohol mg/dL Lyme Specimen Source [place] RNA (RT-PCR) Pending Herpes Virus Source HSV I DNA PCR HSV II DNA PCR Varicella-Zoster Source VZV DNA (PCR) 05/03/19 05/03/19 05/03/19 15:50 15:50 16:32 WBC RBC Hgb Hct MCV MCH MCHC RDW Std Deviation RDW Coeff of Valerio Plt Count MPV Immature Gran % (Auto) Neut % (Auto) Lymph % (Auto) [place] % (Auto) Eos % (Auto) Baso % (Auto) Immature Gran # (Auto) Neut # (Auto) Lymph # (Auto) [place] # (Auto) Eos # (Auto) Baso # (Auto) Sodium Potassium Chloride Carbon Dioxide Anion Gap BUN Creatinine Est Cr Clr Drug Dosing Est GFR ( Amer) Est GFR (Non-Af Amer) BUN/Creatinine Ratio Glucose POC Glucose 147 H Lactate Calcium Phosphorus Magnesium Total Bilirubin AST ALT Alkaline Phosphatase Total Protein Albumin Globulin Albumin/Globulin Ratio Procalcitonin Fld Lyme DNA (PCR) Pending CSF Appearance CSF Color Xanthrochromic CSF WBC CSF RBC CSF Cell Count Tube # CSF Chemistry Tube # CSF Glucose CSF Total Protein CSF [place] IgM Ab Vancomycin Trough Salicylates Ethyl Alcohol mg/dL Lyme Specimen Source Pending [place] RNA (RT-PCR) Herpes Virus Source HSV I DNA PCR HSV II DNA PCR Varicella-Zoster Source Pending VZV DNA (PCR) Pending 05/03/19 05/04/19 05/04/19 20:37 00:09 01:22 WBC 4.00 L RBC 3.81 L Hgb 11.2 L Hct 34.5 L MCV 90.6 MCH 29.4 MCHC 32.5 RDW Std Deviation 53.7 H RDW Coeff of Valerio 16.3 H Plt Count 64 L MPV 10.3 Immature Gran % (Auto) Neut % (Auto) Lymph % (Auto) [place] % (Auto) Eos % (Auto) Baso % (Auto) Immature Gran # (Auto) Neut # (Auto) Lymph # (Auto) [place] # (Auto) Eos # (Auto) Baso # (Auto) Sodium Potassium Chloride Carbon Dioxide Anion Gap BUN Creatinine Est Cr Clr Drug Dosing Est GFR ( Amer) Est GFR (Non-Af Amer) BUN/Creatinine Ratio Glucose POC Glucose 124 H 146 H Lactate Calcium Phosphorus Magnesium Total Bilirubin AST ALT Alkaline Phosphatase Total Protein Albumin Globulin Albumin/Globulin Ratio Procalcitonin Fld Lyme DNA (PCR) CSF Appearance CSF Color Xanthrochromic CSF WBC CSF RBC CSF Cell Count Tube # CSF Chemistry Tube # CSF Glucose CSF Total Protein CSF [place] IgM Ab Vancomycin Trough Salicylates Ethyl Alcohol mg/dL Lyme Specimen Source [place] RNA (RT-PCR) Herpes Virus Source HSV I DNA PCR HSV II DNA PCR Varicella-Zoster Source VZV DNA (PCR) 05/04/19 05/04/19 05/04/19 01:22 01:22 04:05 WBC RBC Hgb Hct MCV MCH MCHC RDW Std Deviation RDW Coeff of Valerio Plt Count MPV Immature Gran % (Auto) Neut % (Auto) Lymph % (Auto) [place] % (Auto) Eos % (Auto) Baso % (Auto) Immature Gran # (Auto) Neut # (Auto) Lymph # (Auto) [place] # (Auto) Eos # (Auto) Baso # (Auto) Sodium 143 Potassium 3.4 L Chloride 107 Carbon Dioxide 31 Anion Gap 5.0 BUN 14 Creatinine 0.98 Est Cr Clr Drug Dosing 65.1 Est GFR ( Amer) 72.7 Est GFR (Non-Af Amer) 62.7 BUN/Creatinine Ratio 14.1 Glucose 163 H POC Glucose 210 H Lactate Calcium 8.4 L Phosphorus 3.7 D Magnesium 2.1 Total Bilirubin AST ALT Alkaline Phosphatase Total Protein Albumin Globulin Albumin/Globulin Ratio Procalcitonin Fld Lyme DNA (PCR) CSF Appearance CSF Color Xanthrochromic CSF WBC CSF RBC CSF Cell Count Tube # CSF Chemistry Tube # CSF Glucose CSF Total Protein CSF [place] IgM Ab Vancomycin Trough 9.1 Salicylates Ethyl Alcohol mg/dL Lyme Specimen Source [place] RNA (RT-PCR) Herpes Virus Source HSV I DNA PCR HSV II DNA PCR Varicella-Zoster Source VZV DNA (PCR) 05/04/19 07:34 WBC RBC Hgb Hct MCV MCH MCHC RDW Std Deviation RDW Coeff of Valerio Plt Count MPV Immature Gran % (Auto) Neut % (Auto) Lymph % (Auto) [place] % (Auto) Eos % (Auto) Baso % (Auto) Immature Gran # (Auto) Neut # (Auto) Lymph # (Auto) [place] # (Auto) Eos # (Auto) Baso # (Auto) Sodium Potassium Chloride Carbon Dioxide Anion Gap BUN Creatinine Est Cr Clr Drug Dosing Est GFR ( Amer) Est GFR (Non-Af Amer) BUN/Creatinine Ratio Glucose POC Glucose 260 H Lactate Calcium Phosphorus Magnesium Total Bilirubin AST ALT Alkaline Phosphatase Total Protein Albumin Globulin Albumin/Globulin Ratio Procalcitonin Fld Lyme DNA (PCR) CSF Appearance CSF Color Xanthrochromic CSF WBC CSF RBC CSF Cell Count Tube # CSF Chemistry Tube # CSF Glucose CSF Total Protein CSF [place] IgM Ab Vancomycin Trough Salicylates Ethyl Alcohol mg/dL Lyme Specimen Source [place] RNA (RT-PCR) Herpes Virus Source HSV I DNA PCR HSV II DNA PCR Varicella-Zoster Source VZV DNA (PCR) Medications Administered Current Inpatient Medications Acetaminophen (Tylenol) 650 mg PO Q4H PRN PRN Reason: Pain or Fever Stop: 06/01/19 20:21 Last Admin: 05/04/19 08:06 Dose: 650 mg Documented by: Al Hydrox/Mg Hydrox/Simethicone (Maalox) 15 ml PO Q4H PRN PRN Reason: Dyspepsia Stop: 06/01/19 20:21 Aztreonam (Aztreonam Consult Active) 1 ea N/A UD PRN PRN Reason: Consult Stop: 06/01/19 20:42 Dextrose (Dextrose 50%) 25 - 50 ml IV UD PRN; Protocol PRN Reason: Hypoglycemia Protocol Stop: 06/01/19 20:21 Last Admin: 05/03/19 04:17 Dose: 25 ml Documented by: Dextrose (Dextrose 50%) 25 - 50 ml IV UD PRN; Protocol PRN Reason: Hypoglycemia Protocol Stop: 06/01/19 20:59 Glucagon (Glucagen) 1 mg SQ UD PRN; Protocol PRN Reason: Hypoglycemia Protocol Stop: 06/01/19 20:21 Glucagon (Glucagen) 1 mg SQ UD PRN; Protocol PRN Reason: Hypoglycemia Protocol Stop: 06/01/19 20:59 Glucose (Glucose 40%) 15 - 30 gm PO UD PRN; Protocol PRN Reason: Hypoglycemia Protocol Stop: 06/01/19 20:21 Glucose (Dex4 Glucose) 4 - 8 tabs PO UD PRN; Protocol PRN Reason: Hypoglycemia Protocol Stop: 06/01/19 20:21 Glucose (Glucose 40%) 15 - 30 gm PO UD PRN; Protocol PRN Reason: Hypoglycemia Protocol Stop: 06/01/19 20:59 Glucose (Dex4 Glucose) 4 - 8 tabs PO UD PRN; Protocol PRN Reason: Hypoglycemia Protocol Stop: 06/01/19 20:59 Heparin Sodium (Porcine) (Heparin Sodium (Porcine)) 5,000 units SQ Q8 EVGENY Stop: 06/01/19 21:59 Last Admin: 05/03/19 06:16 Dose: 5,000 units Documented by: Acyclovir Sodium 430 mg/ (Dextrose) 108.6 mls @ 100 mls/hr IV Q8H EVGENY; Protocol Stop: 05/13/19 03:59 Last Infusion: 05/04/19 05:51 Dose: Infused Documented by: Levothyroxine Sodium 37.5 mcg/ (Syringe) 1.875 mls @ 2 mls/min IV DAILY@0900 [facility] Stop: 06/02/19 08:59 Last Admin: 05/04/19 09:54 Dose: 2 mls/min Documented by: Aztreonam 2,000 mg/ Dextrose 110 mls @ 110 mls/hr IV Q8H EVGENY; Protocol Stop: 05/13/19 01:59 Last Admin: 05/04/19 09:54 Dose: 110 mls/hr Documented by: Acetaminophen (Ofirmev) 65 mls @ 200 mls/hr IV Q8H PRN PRN Reason: Pain or Fever Stop: 06/01/19 22:14 Last Infusion: 05/03/19 17:51 Dose: Infused Documented by: Vancomycin HCl 1,250 mg/ (Sodium Chloride) 275 mls @ 125 mls/hr IV Q16H EVGENY; Protocol Stop: 05/13/19 09:59 Last Infusion: 05/04/19 04:24 Dose: Infused Documented by: Insulin Aspart (Novolog Flexpen) 0 units SC ACHS [facility]; Protocol Stop: 06/02/19 16:29 Last Admin: 05/04/19 07:58 Dose: 10 units Documented by: Insulin Human NPH (Novolin N Nph) 100 units SC BIDM EVGENY Stop: 06/02/19 16:59 Last Admin: 05/04/19 07:57 Dose: 100 units Documented by: Ioversol (Optiray 320 100ml) 93 ml IV ONCE PRN PRN Reason: Interaction Checking Stop: 05/07/19 13:09 Last Admin: 05/03/19 13:15 Dose: 93 ml Documented by: Magnesium Hydroxide (Milk Of Magnesia) 30 ml PO Q12H PRN PRN Reason: Constipation Stop: 06/01/19 20:21 Miscellaneous (Carbohydrates For Hypoglycemia) 15 - 30 gm PO UD PRN PRN Reason: Hypoglycemia Treatment Stop: 06/01/19 20:21 Last Admin: 05/03/19 08:10 Dose: 15 gm Documented by: Miscellaneous (Carbohydrates For Hypoglycemia) 15 - 30 gm PO UD PRN PRN Reason: Hypoglycemia Treatment Stop: 06/01/19 20:59 Miscellaneous Information () 1 ea N/A UD PRN PRN Reason: Consult Stop: 06/01/19 20:42 Miscellaneous Information (Consult Glycemic Management Pharmacy) 1 ea N/A UD PRN; Protocol PRN Reason: Consult Stop: 06/01/19 20:43 Miscellaneous Information (Consult) 1 ea N/A UD PRN PRN Reason: Consult Stop: 06/01/19 20:43 Ondansetron HCl (Zofran) 4 mg IV Q6H PRN PRN Reason: Nausea Stop: 06/01/19 20:21 Polyethylene Glycol (Miralax Powder Packet) 17 gm PO DAILY PRN PRN Reason: Constipation Stop: 06/01/19 20:21 (1) Sepsis Sepsis acute organ dysfunction status: unspecified Sepsis type: sepsis due to unspecified organism Qualified Code(s): A41.9 - Sepsis, unspecified organism
[2019-05-04] MEDS ORDERED: INSULIN HUMAN NPH SC ONE (12:00)
[2019-05-04] MEDS ORDERED: PERFLUTREN LIPID MICROSPHERE (DEFINITY) IV ONE (13:24)
[2019-05-04] MEDS ORDERED: TRAMADOL HCL 50 MG TABLET PO PRN (15:55)
--- NOTE | 2019-05-04 15:58 | Hospitalist Progress Note ---
Date of Service May 04, 2019 Assessment & Plan (1) Encephalitis: viral encephalitis-LP yesterday. CSF studies pending to help identify etiology. Zoster as a source is possible with active shingles infection. Afebrile, continuing supportive care. PT/OT tomorrow. Cont Acyclovir. (2) Positive blood culture: suspect contamination. Cont current antibiotics including vancomycin and aztreonam for now. Appreciate ID recs. h/o TAVR, echo performed today out of concern for possible endocarditis. Reading is pending. Cardiology following case. (3) Severe sepsis: resuscitated. (4) Herpes zoster: Acyclovir, pain control efforts with voltaren gel (noted low platelets) and Lyrica which we will restart. (5) Acute decompensated heart failure: Takes torsemide at home. Good response to Lasix 20mg IV yesterday. Will give an additional dose of Lasix 40mg IV now with evidence of crackles in the bases of lungs and will restart his torsemide in am. Cont to wean oxygen and encourage ambulation. (6) IDDM (insulin dependent diabetes mellitus): Hyperglycemic coming in 394 with subsequent hypoglycemia overnight into the 60s. Appreciate inpatient glycemic pharmacist management of insulin for target blood sugar. (7) CKD (chronic kidney disease) stage 3, GFR 30-59 ml/min: Initial HEIDY related to sepsis has resolved. (8) Thrombocytopenia: 2/2 acute infection. No active bleeding. Cont to monitor. Holding ASA and Plavix for one more day. (9) HTN (hypertension): Not moving much and still has BP on the lower end of normal. cont holding valsartan for another day. (10) CAD (coronary artery disease): No evidence of active ischemia, cont medical management with statin, beta- nayeli, valsartan . ASA/Plavix held in setting of acute thrombocytopenia. BB restarted. Giving small dose of Lopressor IV now. (11) Hypothyroidism: Synthroid (12) DANYELLE (obstructive sleep apnea): CPAP at bedtime (13) Depression with anxiety: Restarted Abilify, Buspar, and Prozac per home regimen. (14) H/O aortic valve replacement: AVR in 2010 with redo in 2018 TAVR last echo 01/2019 EF 70% with G1DD, patent AVR (15) DVT prophylaxis: Heparin held 2/2 thrombocytopenia. Full Code dispo-cont PCU monitoring. PT/OT and early ambulation encouraged at this point. Annalise Escobar, [facility] Hospitalist Subjective Much improved today, still slightly tachycardic but afebrile and she is oriented. She is reporting a slight headache and had some tylenol for this already. She reports pain in her rash site and has pre-existing neuropathy in her feet for which she takes Lyrica. She has been tolerating PO well today but feels she is not that hungry and prefers a clear liquid diet at this point. Her breathing is improved per her report. Review of Systems Review of Systems: All systems reviewed & are unremarkable except as noted in HPI & below Physical Exam Physical Exam: CONSTITUTIONAL: obese, vitals as above, NAD, oriented EYES: pupils are equal and round bilaterally, normal conjunctivae, normal sclerae ENT: MMM RESPIRATORY: clear to auscultation bilaterally, with some crackles at the bases CARDIOVASCULAR: tachy rate and rhythm, 3/6 ENEDINA, no gallops or rubs, no JVD, no peripheral edema GASTROINTESTINAL: soft, large pannus with hernia present but difficult to examine because of obesity, nondistended, nontender MUSCULOSKELETAL: generalized weakness, deconditioned, moving all extremities equally SKIN: warm and dry, dermatomal vesicular rash on lower right back. NEUROLOGIC: alert and oriented, CN 2-12, TTP in feet bilaterally, no gross focal deficits. Results & Data Vital Signs (Past 12 Hours) Vital Signs Temp Pulse Pulse Resp BP Pulse Ox 05/04/19 11:28 37.2 C 111 H 19 102/63 92 05/04/19 08:00 104 H 05/04/19 07:32 37.2 C 107 H 19 110/66 95 05/04/19 04:00 36.9 C 109 H 20 127/71 94 Laboratory Results Short CBC 05/04/19 Range/Units 01:22 WBC 4.00 L (4.8-10.8) K/uL Hgb 11.2 L (12.0-16.0) g/dL Hct 34.5 L (37-47) % Plt Count 64 L (130-400) K/uL BMP 05/04/19 01:22 Sodium 143 Potassium 3.4 L Chloride 107 Carbon Dioxide 31 BUN 14 Creatinine 0.98 Glucose 163 H Calcium 8.4 L Medications Administered Current Inpatient Medications Acetaminophen (Tylenol) 650 mg PO Q4H PRN PRN Reason: Pain or Fever Stop: 06/01/19 20:21 Last Admin: 05/04/19 14:49 Dose: 650 mg Documented by: Al Hydrox/Mg Hydrox/Simethicone (Maalox) 15 ml PO Q4H PRN PRN Reason: Dyspepsia Stop: 06/01/19 20:21 Aztreonam (Aztreonam Consult Active) 1 ea N/A UD PRN PRN Reason: Consult Stop: 06/01/19 20:42 Dextrose (Dextrose 50%) 25 - 50 ml IV UD PRN; Protocol PRN Reason: Hypoglycemia Protocol Stop: 06/01/19 20:21 Last Admin: 05/03/19 04:17 Dose: 25 ml Documented by: Dextrose (Dextrose 50%) 25 - 50 ml IV UD PRN; Protocol PRN Reason: Hypoglycemia Protocol Stop: 06/01/19 20:59 Diclofenac Sodium (Voltaren 1% Top) 1 appln EXT BID PRN PRN Reason: rash pain Stop: 06/03/19 20:59 Glucagon (Glucagen) 1 mg SQ UD PRN; Protocol PRN Reason: Hypoglycemia Protocol Stop: 06/01/19 20:21 Glucagon (Glucagen) 1 mg SQ UD PRN; Protocol PRN Reason: Hypoglycemia Protocol Stop: 06/01/19 20:59 Glucose (Glucose 40%) 15 - 30 gm PO UD PRN; Protocol PRN Reason: Hypoglycemia Protocol Stop: 06/01/19 20:21 Glucose (Dex4 Glucose) 4 - 8 tabs PO UD PRN; Protocol PRN Reason: Hypoglycemia Protocol Stop: 06/01/19 20:21 Glucose (Glucose 40%) 15 - 30 gm PO UD PRN; Protocol PRN Reason: Hypoglycemia Protocol Stop: 06/01/19 20:59 Glucose (Dex4 Glucose) 4 - 8 tabs PO UD PRN; Protocol PRN Reason: Hypoglycemia Protocol Stop: 06/01/19 20:59 Heparin Sodium (Porcine) (Heparin Sodium (Porcine)) 5,000 units SQ Q8 EVGENY Stop: 06/01/19 21:59 Last Admin: 05/03/19 06:16 Dose: 5,000 units Documented by: Acyclovir Sodium 430 mg/ (Dextrose) 108.6 mls @ 100 mls/hr IV Q8H [facility]; Protocol Stop: 05/13/19 03:59 Last Infusion: 05/04/19 14:01 Dose: Infused Documented by: Levothyroxine Sodium 37.5 mcg/ (Syringe) 1.875 mls @ 2 mls/min IV DAILY@0900 [facility] Stop: 06/02/19 08:59 Last Admin: 05/04/19 09:54 Dose: 2 mls/min Documented by: Aztreonam 2,000 mg/ Dextrose 110 mls @ 110 mls/hr IV Q8H [facility]; Protocol Stop: 05/13/19 01:59 Last Infusion: 05/04/19 11:26 Dose: Infused Documented by: Acetaminophen (Ofirmev) 65 mls @ 200 mls/hr IV Q8H PRN PRN Reason: Pain or Fever Stop: 06/01/19 22:14 Last Infusion: 05/03/19 17:51 Dose: Infused Documented by: Vancomycin HCl 1,250 mg/ (Sodium Chloride) 275 mls @ 125 mls/hr IV Q16H [facility]; Protocol Stop: 05/13/19 09:59 Last Infusion: 05/04/19 04:24 Dose: Infused Documented by: Insulin Aspart (Novolog Flexpen) 0 units SC ACHS [facility]; Protocol Stop: 06/02/19 16:29 Last Admin: 05/04/19 12:40 Dose: 16 units Documented by: Insulin Human NPH (Novolin N Nph) 100 units SC BIDM [facility] Stop: 05/04/19 23:59 Last Admin: 05/04/19 07:57 Dose: 100 units Documented by: Insulin Human NPH (Novolin N Nph) 130 units SC BIDM [facility] Stop: 06/04/19 07:59 Ioversol (Optiray 320 100ml) 93 ml IV ONCE PRN PRN Reason: Interaction Checking Stop: 05/07/19 13:09 Last Admin: 05/03/19 13:15 Dose: 93 ml Documented by: Magnesium Hydroxide (Milk Of Magnesia) 30 ml PO Q12H PRN PRN Reason: Constipation Stop: 06/01/19 20:21 Miscellaneous (Carbohydrates For Hypoglycemia) 15 - 30 gm PO UD PRN PRN Reason: Hypoglycemia Treatment Stop: 06/01/19 20:21 Last Admin: 05/03/19 08:10 Dose: 15 gm Documented by: Miscellaneous (Carbohydrates For Hypoglycemia) 15 - 30 gm PO UD PRN PRN Reason: Hypoglycemia Treatment Stop: 06/01/19 20:59 Miscellaneous Information () 1 ea N/A UD PRN PRN Reason: Consult Stop: 06/01/19 20:42 Miscellaneous Information (Consult Glycemic Management Pharmacy) 1 ea N/A UD PRN; Protocol PRN Reason: Consult Stop: 06/01/19 20:43 Miscellaneous Information (Consult) 1 ea N/A UD PRN PRN Reason: Consult Stop: 06/01/19 20:43 Ondansetron HCl (Zofran) 4 mg IV Q6H PRN PRN Reason: Nausea Stop: 06/01/19 20:21 Polyethylene Glycol (Miralax Powder Packet) 17 gm PO DAILY PRN PRN Reason: Constipation Stop: 06/01/19 20:21 Tramadol HCl (Ultram) 50 mg PO Q4H PRN PRN Reason: Pain Stop: 06/03/19 15:54
[2019-05-04] MEDS ORDERED: ACETAMINOPHEN 325 MG TAB PO PRN (16:18)
[2019-05-04] MEDS ORDERED: FUROSEMIDE 40 MG/4 ML VIAL IV STA (16:26)
[2019-05-04] MEDS ORDERED: METOPROLOL TARTRATE 1 MG/ML VIAL IV STA (16:31)
[2019-05-04] MEDS: TORSEMIDE 10 MG TAB PO SCH (17:38)
[2019-05-04] MEDS: DICLOFENAC SOD 1% GEL 100 GM TUBE EXT PRN (17:50)
[2019-05-04] MEDS: METOPROLOL TARTRATE 50 MG TAB PO SCH (20:15)
[2019-05-04] MEDS: BusPIRone 15 MG TAB PO SCH (20:16)
[2019-05-04] MEDS: NYSTATIN POWDER 15GM BTL EXT SCH (20:16)
[2019-05-04] MEDS: PREGABALIN 75 MG CAP PO SCH (20:20)
[2019-05-05] MEDS: AZTREONAM 2,000 MG in DEXTROSE 5% 100 ML IV SCH ×2 (03:00→10:32)
[2019-05-05] MEDS: DEXTROSE 5% IV SCH ×3 (04:18→21:13)
[2019-05-05] MEDS: ACYCLOVIR SOD IV SCH ×3 (04:18→21:13)
[2019-05-05] MEDS: LEVOTHYROXINE SODIUM 75 MCG TABLET PO SCH (05:36)
[2019-05-05 07:56] LABS: Hematocrit (blood only) 35.5 % (37-47); Hemoglobin 11.9 g/dL (12.0-16.0); Mean Corpuscular Hgb Conc 33.5 g/dL (32-36); Mean Corpuscular Volume 87.2 fL (80-100); Nucleated RBC # (auto) 0.02 K/uL (0-0); Nucleated RBC % (auto) 0.4 %; RDW Standard Deviation 51.1 fL (36.4-46.3); Red Blood Count 4.07 M/uL (4.2-5.4); White Blood Count 5.07 K/uL (4.8-10.8)
[2019-05-05] MEDS ORDERED: INSULIN HUMAN NPH SC SCH (08:00)
[2019-05-05 08:12] LABS: Mean Platelet Volume 10.4 fL (7.4-10.4); Platelet Count 62 K/uL (130-400)
[2019-05-05] MEDS: ARIPiprazole 15 MG TAB PO SCH (08:12)
[2019-05-05] MEDS: FLUOXETINE HCL 20 MG CAP PO SCH (08:12)
[2019-05-05] MEDS: TORSEMIDE 10 MG TAB PO SCH ×2 (08:12→17:19)
[2019-05-05] MEDS: METOPROLOL TARTRATE 50 MG TAB PO SCH ×2 (08:12→21:14)
[2019-05-05] MEDS: BusPIRone 15 MG TAB PO SCH ×2 (08:12→21:13)
[2019-05-05] MEDS: DOCUSATE SODIUM 100 MG CAP PO SCH (08:12)
[2019-05-05] MEDS: INSULIN HUMAN NPH SC SCH ×2 (08:13→17:18)
[2019-05-05] MEDS: ATORVASTATIN 40 MG TAB PO SCH (08:14)
[2019-05-05] MEDS: NYSTATIN POWDER 15GM BTL EXT SCH ×3 (08:14→21:14)
[2019-05-05 08:25] LABS: Calcium 8.9 mg/dl (8.5-10.1); Creatinine Clr Calc Pharmacy 59.7 ml/min; Est GFR (African American) 66.1; Potassium 3.3 mmol/L (3.5-5.1)
[2019-05-05] MEDS: PREGABALIN 75 MG CAP PO SCH ×2 (08:27→21:16)
[2019-05-05] MEDS ORDERED: POTASSIUM CHLORIDE 10 MEQ TABCR PO STA (08:52)
[2019-05-05] MEDS: INSULIN ASPART 100 UNITS/ML 3 ML PEN SC SCH ×4 (09:16→23:15)
--- NOTE | 2019-05-05 09:29 | Pharmacy Report ---
Pharm Abx/Gly Prg Nt - Date of Service May 05, 2019 - Scope Pharmacy has been consulted to manage vancomycin/acyclovir/Azactam and glycemic control for this patient as per the Pharmacy & Therapeutics Committee approved dosing protocols. - Objective Vital Signs (Past 12hrs): Vital Signs Temp Pulse Pulse Resp BP Pulse Ox 05/05/19 07:32 37 C 91 H 18 110/71 94 05/05/19 03:08 36.7 C 81 18 112/68 95 05/05/19 01:55 89 05/04/19 23:53 36.6 C 79 19 105/62 94 05/04/19 22:30 80 18 97 Lab Results: Laboratory Tests (24 Hours) 05/05/19 05/05/19 07:40 07:40 WBC 5.07 Creatinine 1.06 Est Cr Clr Drug Dosing 59.7 Micro Results: 05/02/19 15:05 Anaerobic Blood Culture - Final Blood 05/02/19 15:20 Anaerobic Blood Culture - Final Blood 05/03/19 15:50 Gram Stain - Final Cerebral Spinal Fluid 05/03/19 15:50 Cryptococcal Antigen Test - Final Cerebral Spinal Fluid Accuchecks BSG (last 24 hours):: 05/04/19 05/04/19 05/04/19 11:24 16:33 20:21 Glucose POC Glucose 237 H 179 H 214 H 05/05/19 05/05/19 07:29 07:40 Glucose 137 H POC Glucose 141 H HbA1C: Hemoglobin A1c 8.0 % (4.5-5.6) H 05/03/19 01:21 - Outpatient Anti-Diabetic Regimen Recent Pertinent Medications: Outpatient Anti-diabetic Regimen: * U-500 255 units TID (patient recently self-adjusted to 265 units TID) * A1c = 8 % 05/03/19 The patient is currently receiving: * Basal insulin: NPH 100 units every 12 hours (addl 50 units given yesterday); ordered for 130 units BID today * Correctional Insulin: Novolog Correction per scale ACHS Goal Range: Low 140 mg/dL - High 180 mg/dL Correction Factor: 8 mg/dL/unit * Prandial insulin: Per carb ratio of 1 unit per 3 grams CHO consumed Risk Factors for Insulin Resistance: * Infection: * Diet: type 2 diabetes/clears - Assessment & Plan Assessment: ID: * 58 year old F receiving vancomycin, aztreonam and acyclovir for treatment of sepsis with unclear source, likely from herpes zoster infection * Day # 01/01 of antimicrobial therapy * Blood cultures with 1 of 4 positive, most likely contaminant * CSF cultures are final and showing no growth Glycemic: * Ms. Rose rec'd 299 units of insulin yesterday (250 of this being basal) * BSGs are much improved this AM and current regimen is heavily weighted on ba julián insulin so will start to adjust to more of a 50/50 split. In addition, her diet will be advanced today so she'll require tighter carb coverage. Plan: ANTIMICROBIAL THERAPY Spoke to Dr. Lui re: negative CSF cultures. Vancomycin and aztreonam are now discontinued. INPATIENT GLYCEMIC CONTROL Basal Insulin - decrease to be closer to a 50/50 split (may need to cut back to 75 units BID if fasting continues to improve) * NPH 100 units SQ BID Bolus Insulin - tighten CF/CR * NovoLog per scale ACHS or Q6hrs while NPO * Goal Range: Low 110 mg/dL - High 150 mg/dL * Correction Factor: 5 mg/dL/unit * Nutritional / Prandial insulin per carb ratio of 1 unit per 2 grams CHO consumed * Please note that the plan above was derived based on current level of insulin resistance and hospital stress. These recommendations are appropriate for inpatient admission only. Plan of care upon discharge will need to be reassessed to avoid potential outpatient hypo/hyperglycemia. Glycemic Control Discharge Recommendations: * See 05/03 note Pharmacy will follow patient and adjust orders on a daily basis. Thank you for allowing us to participate in this patients care.
[2019-05-05] MEDS ORDERED: FUROSEMIDE 40 MG TAB PO PRN (09:45)
--- NOTE | 2019-05-05 11:20 | Infectious Disease Progress Nt ---
Date of Service May 05, 2019 Assessment & Plan (1) Sepsis: 58-year-old female with clinical picture of sepsis with encephalopathy, source not entirely clear, but given likely zoster infection, worry about possibility of zoster encephalitis although CSF findings speak against this diagnosis. For now, patient should be continued on broad-spectrum antibiotics and acyclovir pending further culture results and CSF findings. If csf cultures negative, will likely d/c abx and continue on acyclovir - 14 days total. (2) Infectious encephalopathy: (3) Herpes zoster: Subjective pt remains on IV abx and acyclovir for concern of vzv encephalitis. afebrile today. CSF culture negative to date, blood cultures gpr x 1 - likely contaminant. HSV and VZV pcr pending. crypto antigen negative. 3 wbc on lp, protein elevaated. wbc 5. tmax 37.7 Results & Data Vital Signs (Past 12 Hours) Vital Signs Temp Pulse Pulse Resp BP Pulse Ox 05/05/19 07:32 37 C 91 H 18 110/71 94 05/05/19 03:08 36.7 C 81 18 112/68 95 05/05/19 01:55 89 05/04/19 23:53 36.6 C 79 19 105/62 94 Laboratory Results Microbiology 05/02/19 15:05 Blood Aerobic Blood Culture - Preliminary Gram positive bacilli 05/02/19 15:05 Blood Anaerobic Blood Culture - Final 05/03/19 15:50 Cerebral Spinal Fluid Gram Stain - Final 05/03/19 15:50 Cerebral Spinal Fluid CSF Culture - Final No growth 05/02/19 15:20 Blood Aerobic Blood Culture - Preliminary No growth in Aerobic bottle after 48 hours. 05/02/19 15:20 Blood Anaerobic Blood Culture - Final 05/03/19 15:50 Cerebral Spinal Fluid Cryptococcal Antigen Test - Final PG Care Time/CCT Total # of Minutes Spent Total Time Spent with Patient: Total time spent is greater than 50% in coordination of care (as documented) at patient's floor/unit and/or counseling patient: (1) Sepsis Sepsis acute organ dysfunction status: unspecified Sepsis type: sepsis due to unspecified organism Qualified Code(s): A41.9 - Sepsis, unspecified organism
[2019-05-05] MEDS ORDERED: VANCOMYCIN TROUGH ONE (11:30)
[2019-05-05] MEDS: SPIRONOLACTONE 25 MG TAB PO SCH (12:15)
--- NOTE | 2019-05-05 13:17 | Cardiology Progress Note ---
Date of Service May 05, 2019 Assessment & Plan (1) Encephalitis: (2) Sepsis: (3) S/P TAVR (transcatheter aortic valve replacement): (4) Zoster: The patient is hemodynamically stable and improving daily. Infectious disease note is appreciated. Working diagnosis is sepsis due to zoster. The one blood culture that grew gram-positive bacillus is most likely a contaminant. The echocardiogram the patient had this morning was of limited value as the acoustic windows were poor. Since the blood cultures are essentially negative for bacteremia, I would not at this time recommend a transesophageal echocardiogram unless the clinical course changes. Subjective The patient is sitting in a chair today. She is alert and oriented. She has no new complaints and is starting to feel better. Review of Systems Review of Systems: All systems reviewed & are unremarkable except as noted in HPI & below No additional information. Physical Exam Physical Exam: General: no acute distress and stated age Head: normocephalic, no masses, lesions, tenderness or abnormalities Eyes: conjunctiva are pink and non-injected, sclera clear Neck: supple, no adenopathy, no bruits, normal jugular venous pulse, no hepatojugular reflux Chest: normal shape and normal respiratory effort Lungs: clear to auscultation and percussion Cardiac Exam: - regular rate & rhythm, no murmurs gallops or rubs - normal S1, normal S2 Pulses: 2(+) throughout Abdomen: abdomen soft, non-tender, no abnormal masses and no hepatosplenomegaly Musculoskeletal: no gait disturbance, no joint inflammation, no deforming arthritis Extremities: no edema and no cyanosis Neuro: grossly normal exam Results & Data Vital Signs (Past 12 Hours) Vital Signs Temp Pulse Pulse Resp BP Pulse Ox Pulse Ox 05/05/19 11:35 37.1 C 77 20 130/79 91 05/05/19 10:24 94 05/05/19 07:32 37 C 91 H 18 110/71 94 05/05/19 03:08 36.7 C 81 18 112/68 95 05/05/19 01:55 89 Laboratory Results Laboratory Results - last 24 hr 05/04/19 05/04/19 05/05/19 16:33 20:21 07:29 WBC RBC Hgb Hct MCV MCH MCHC RDW Std Deviation RDW Coeff of Valerio Plt Count MPV Absolute Nucleated RBC Nucleated RBC % (auto) Sodium Potassium Chloride Carbon Dioxide Anion Gap BUN Creatinine Est Cr Clr Drug Dosing Est GFR ( Amer) Est GFR (Non-Af Amer) BUN/Creatinine Ratio Glucose POC Glucose 179 H 214 H 141 H Calcium Vancomycin Trough 05/05/19 05/05/19 05/05/19 07:40 07:40 11:14 WBC 5.07 RBC 4.07 L Hgb 11.9 L Hct 35.5 L MCV 87.2 MCH 29.2 MCHC 33.5 RDW Std Deviation 51.1 H RDW Coeff of Valerio 16.0 H Plt Count 62 L MPV 10.4 Absolute Nucleated RBC 0.02 H Nucleated RBC % (auto) 0.4 Sodium 139 Potassium 3.3 L Chloride 102 Carbon Dioxide 30 Anion Gap 8.0 BUN 16 Creatinine 1.06 Est Cr Clr Drug Dosing 59.7 Est GFR ( Amer) 66.1 Est GFR (Non-Af Amer) 57.0 BUN/Creatinine Ratio 15.0 Glucose 137 H POC Glucose 184 H Calcium 8.9 Vancomycin Trough 05/05/19 11:51 WBC RBC Hgb Hct MCV MCH MCHC RDW Std Deviation RDW Coeff of Valerio Plt Count MPV Absolute Nucleated RBC Nucleated RBC % (auto) Sodium Potassium Chloride Carbon Dioxide Anion Gap BUN Creatinine Est Cr Clr Drug Dosing Est GFR ( Amer) Est GFR (Non-Af Amer) BUN/Creatinine Ratio Glucose POC Glucose Calcium Vancomycin Trough 7.9 Medications Administered Current Inpatient Medications Acetaminophen (Tylenol) 650 mg PO Q4H PRN PRN Reason: Pain or Fever Stop: 06/01/19 20:21 Last Admin: 05/04/19 14:49 Dose: 650 mg Documented by: Al Hydrox/Mg Hydrox/Simethicone (Maalox) 15 ml PO Q4H PRN PRN Reason: Dyspepsia Stop: 06/01/19 20:21 Aripiprazole (Abilify) 30 mg PO QAM REPLACED BY [facility] Stop: 06/04/19 08:59 Last Admin: 05/05/19 08:12 Dose: 30 mg Documented by: Aspirin (Ecotrin Ectab) 81 mg PO DAILY REPLACED BY [facility] Stop: 06/05/19 08:59 Atorvastatin Calcium (Lipitor) 40 mg PO DAILY REPLACED BY [facility] Stop: 06/04/19 08:59 Last Admin: 05/05/19 08:14 Dose: 40 mg Documented by: Buspirone HCl (Buspar) 15 mg PO BID EVGENY Stop: 06/03/19 20:59 Last Admin: 05/05/19 08:12 Dose: 15 mg Documented by: Clopidogrel Bisulfate (Plavix) 75 mg PO DAILY REPLACED BY [facility] Stop: 06/05/19 08:59 Dextrose (Dextrose 50%) 25 - 50 ml IV UD PRN; Protocol PRN Reason: Hypoglycemia Protocol Stop: 06/01/19 20:21 Last Admin: 05/03/19 04:17 Dose: 25 ml Documented by: Dextrose (Dextrose 50%) 25 - 50 ml IV UD PRN; Protocol PRN Reason: Hypoglycemia Protocol Stop: 06/01/19 20:59 Diclofenac Sodium (Voltaren 1% Top) 1 appln EXT BID PRN PRN Reason: rash pain Stop: 06/03/19 20:59 Last Admin: 05/04/19 17:50 Dose: 1 appln Documented by: Docusate Sodium (Colace) 100 mg PO DAILY REPLACED BY [facility] Stop: 06/04/19 08:59 Last Admin: 05/05/19 08:12 Dose: 100 mg Documented by: Fluoxetine HCl (Prozac) 20 mg PO DAILY REPLACED BY [facility] Stop: 06/04/19 08:59 Last Admin: 05/05/19 08:12 Dose: 20 mg Documented by: Furosemide (Lasix) 40 mg PO DAILY PRN PRN Reason: Edema Stop: 06/04/19 09:44 Glucagon (Glucagen) 1 mg SQ UD PRN; Protocol PRN Reason: Hypoglycemia Protocol Stop: 06/01/19 20:21 Glucagon (Glucagen) 1 mg SQ UD PRN; Protocol PRN Reason: Hypoglycemia Protocol Stop: 06/01/19 20:59 Glucose (Glucose 40%) 15 - 30 gm PO UD PRN; Protocol PRN Reason: Hypoglycemia Protocol Stop: 06/01/19 20:21 Glucose (Dex4 Glucose) 4 - 8 tabs PO UD PRN; Protocol PRN Reason: Hypoglycemia Protocol Stop: 06/01/19 20:21 Glucose (Glucose 40%) 15 - 30 gm PO UD PRN; Protocol PRN Reason: Hypoglycemia Protocol Stop: 06/01/19 20:59 Glucose (Dex4 Glucose) 4 - 8 tabs PO UD PRN; Protocol PRN Reason: Hypoglycemia Protocol Stop: 06/01/19 20:59 Heparin Sodium (Porcine) (Heparin Sodium (Porcine)) 5,000 units SQ Q8 REPLACED BY [facility] Stop: 06/01/19 21:59 Last Admin: 05/03/19 06:16 Dose: 5,000 units Documented by: Acyclovir Sodium 430 mg/ (Dextrose) 108.6 mls @ 100 mls/hr IV Q8H REPLACED BY [facility]; Protocol Stop: 05/13/19 03:59 Last Infusion: 05/05/19 05:36 Dose: Infused Documented by: Insulin Aspart (Novolog Flexpen) 0 units SC ACHS REPLACED BY [facility]; Protocol Stop: 06/02/19 16:29 Last Admin: 05/05/19 12:18 Dose: 30 units Documented by: Insulin Human NPH (Novolin N Nph) 100 units SC BIDM REPLACED BY [facility]; Protocol Stop: 06/04/19 07:59 Last Admin: 05/05/19 08:13 Dose: 100 units Documented by: Ioversol (Optiray 320 100ml) 93 ml IV ONCE PRN PRN Reason: Interaction Checking Stop: 05/07/19 13:09 Last Admin: 05/03/19 13:15 Dose: 93 ml Documented by: Levothyroxine Sodium (Synthroid) 75 mcg PO DAILYBB REPLACED BY [facility] Stop: 06/04/19 06:29 Last Admin: 05/05/19 05:36 Dose: 75 mcg Documented by: Magnesium Hydroxide (Milk Of Magnesia) 30 ml PO Q12H PRN PRN Reason: Constipation Stop: 06/01/19 20:21 Metoprolol Tartrate (Lopressor) 50 mg PO BID REPLACED BY [facility] Stop: 06/03/19 20:59 Last Admin: 05/05/19 08:12 Dose: 50 mg Documented by: Miscellaneous (Carbohydrates For Hypoglycemia) 15 - 30 gm PO UD PRN PRN Reason: Hypoglycemia Treatment Stop: 06/01/19 20:21 Last Admin: 05/03/19 08:10 Dose: 15 gm Documented by: Miscellaneous (Carbohydrates For Hypoglycemia) 15 - 30 gm PO UD PRN PRN Reason: Hypoglycemia Treatment Stop: 06/01/19 20:59 Miscellaneous Information () 1 ea N/A UD PRN PRN Reason: Consult Stop: 06/01/19 20:42 Miscellaneous Information (Consult Glycemic Management Pharmacy) 1 ea N/A UD PRN; Protocol PRN Reason: Consult Stop: 06/01/19 20:43 Nystatin (Mycostatin) 1 appln EXT TID REPLACED BY [facility] Stop: 06/03/19 20:59 Last Admin: 05/05/19 08:14 Dose: 1 appln Documented by: Ondansetron HCl (Zofran) 4 mg IV Q6H PRN PRN Reason: Nausea Stop: 06/01/19 20:21 Polyethylene Glycol (Miralax Powder Packet) 17 gm PO DAILY PRN PRN Reason: Constipation Stop: 06/01/19 20:21 Pregabalin (Lyrica) 75 mg PO BID REPLACED BY [facility] Stop: 06/03/19 20:59 Last Admin: 05/05/19 08:27 Dose: 75 mg Documented by: Spironolactone (Aldactone) 12.5 mg PO DAILY REPLACED BY [facility] Stop: 06/04/19 10:14 Last Admin: 05/05/19 12:15 Dose: 12.5 mg Documented by: Torsemide (Demadex) 20 mg PO BID17 REPLACED BY [facility] Stop: 06/03/19 16:59 Last Admin: 05/05/19 08:12 Dose: 20 mg Documented by: Tramadol HCl (Ultram) 50 mg PO Q4H PRN PRN Reason: Pain Stop: 06/03/19 15:54 (1) Sepsis Sepsis acute organ dysfunction status: unspecified Sepsis type: sepsis due to unspecified organism Qualified Code(s): A41.9 - Sepsis, unspecified organism
[2019-05-05] MEDS: DICLOFENAC SOD 1% GEL 100 GM TUBE EXT PRN (15:43)
--- NOTE | 2019-05-05 18:12 | Hospitalist Progress Note ---
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 CSF cultures: Negative Serology:pending Continue acyclovir --for total of 14 days Appreciate ID Input (2) Positive blood culture: R/O Bacteremia H/O TAVR Blood Culture:1/2: Basilar species, not antracis ECHO: Technically Very limited study Heart valves not well visualized Atrium not well seen Right ventricle not well seen IV vancomycin, aztreonam discontinued Cardiology following (3) Severe sepsis: Resolved (4) Herpes zoster: On Acyclovir Continue voltaren gel, Lyrica (5) Acute decompensated heart failure: Continue home diuretics Monitor volume status IV Lasix PRN Saturating on Room air (6) IDDM (insulin dependent diabetes mellitus): Appreciate inpatient glycemic pharmacist management of insulin Monitor BGs (7) CKD (chronic kidney disease) stage 3, GFR 30-59 ml/min: HEIDY on CKD III Resolved Monitor renal function (8) Thrombocytopenia: Likely due to sepsis No active bleeding issues monitor (9) HTN (hypertension): BP relatively low hold valsartan for now (10) CAD (coronary artery disease): Continue home meds (11) Hypothyroidism: Continue levothyroxine (12) DANYELLE (obstructive sleep apnea): CPAP at bedtime (13) Depression with anxiety: Restarted Abilify, Buspar, and Prozac (14) H/O aortic valve replacement: AVR in 2010 with redo in 2018 TAVR last echo 01/2019 EF 70% with G1DD, patent AVR (15) DVT prophylaxis: Heparin held 2/2 thrombocytopenia. Code Status Full Code Disposition PT/OT prior to DC Subjective Patient is seen and examined at bedside Sitting in chair comfortably Has mild shortness of breath on exertion Mental status is back to baseline Reports mild itching of the rash on back Office no other complaints Review of Systems Review of Systems: All systems reviewed & are unremarkable except as noted in HPI & below Physical Exam Physical Exam: Physical Exam: Vitals signs as noted above General Appearance:Obese, no apparent distress Head: normocephalic, Atraumatic Eyes: normal inspection, EOMI Neck: supple, Trachea midline Respiratory/Chest: Normal breath sounds, CTA Cardiovascular: S1, S2, No murmur Abdomen/GI:Soft, Non tender, +hernia, Bowel sounds present Extremities/Musculoskelatal:normal inspection, Trace edema Neurologic/Psych:AAOX3, grossly no focal neurological deficits Skin: normal color, warm, dermatomal vesicular rash on right side of the back Results & Data Vital Signs (Past 12 Hours) Vital Signs Temp Pulse Resp BP Pulse Ox Pulse Ox 05/05/19 15:36 37.3 C 84 19 98/62 L 90 05/05/19 11:35 37.1 C 77 20 130/79 91 05/05/19 10:24 94 05/05/19 07:32 37 C 91 H 18 110/71 94 Laboratory Results Short CBC 05/05/19 Range/Units 07:40 WBC 5.07 (4.8-10.8) K/uL Hgb 11.9 L (12.0-16.0) g/dL Hct 35.5 L (37-47) % Plt Count 62 L (130-400) K/uL BMP 05/05/19 07:40 Sodium 139 Potassium 3.3 L Chloride 102 Carbon Dioxide 30 BUN 16 Creatinine 1.06 Glucose 137 H Calcium 8.9
[2019-05-05] MEDS ORDERED: NON-FORMULARY MEDICATION (Melatonin 15 MG) PO SCH (21:00)
[2019-05-06] MEDS: VANCOMYCIN HCL 1,250 MG in SODIUM CHLORIDE 0.9% 250 ML IV SCH (01:04)
[2019-05-06] MEDS: ACYCLOVIR SOD IV SCH ×3 (02:52→20:24)
[2019-05-06] MEDS: DEXTROSE 5% IV SCH ×3 (02:52→20:24)
[2019-05-06] MEDS: LEVOTHYROXINE SODIUM 75 MCG TABLET PO SCH (05:53)
[2019-05-06 07:17] LABS: Hematocrit (blood only) 34.3 % (37-47); Hemoglobin 11.9 g/dL (12.0-16.0); Mean Corpuscular Hgb Conc 34.7 g/dL (32-36); Mean Corpuscular Volume 85.5 fL (80-100); RDW Coefficient of Variation 15.5 % (11.5-14.5); RDW Standard Deviation 48.6 fL (36.4-46.3); Red Blood Count 4.01 M/uL (4.2-5.4); White Blood Count 7.02 K/uL (4.8-10.8)
[2019-05-06 07:18] LABS: Mean Platelet Volume 10.8 fL (7.4-10.4); Platelet Count 81 K/uL (130-400)
--- NOTE | 2019-05-06 07:19 | XRay Report ---
XR chest 1V portable CLINICAL HISTORY: Dyspnea dyspnea COMPARISON STUDY: 05/03/2019 FINDINGS: Mild stable cardiac megaly. Prior median sternotomy. Prominent pulmonary vasculature. No major change from the prior study. IMPRESSION: Mild congestive failure unaltered from the prior exam. The above report was generated using voice recognition software. It may contain grammatical, syntax or spelling errors. Electronically signed by: Arsenio Prabhakar M.D. 05/06/2019 7:18 AM
[2019-05-06 07:45] LABS: BUN Creatinine Ratio 20.3 (10-20); Calcium 8.4 mg/dl (8.5-10.1); Est GFR (African American) 70.9; Est GFR (Non-African American) 61.2; Magnesium 1.7 mg/dl (1.8-2.4)
[2019-05-06] MEDS: INSULIN ASPART 100 UNITS/ML 3 ML PEN SC SCH ×4 (08:11→21:50)
[2019-05-06] MEDS: INSULIN HUMAN NPH SC SCH ×2 (08:13→17:19)
[2019-05-06] MEDS: BusPIRone 15 MG TAB PO SCH ×2 (08:14→20:30)
[2019-05-06] MEDS: ASPIRIN 81 MG ECTAB PO SCH (08:14)
[2019-05-06] MEDS: CLOPIDOGREL BISULFATE 75 MG TAB PO SCH (08:14)
[2019-05-06] MEDS: SPIRONOLACTONE 25 MG TAB PO SCH (08:14)
[2019-05-06] MEDS: TORSEMIDE 10 MG TAB PO SCH ×2 (08:15→17:18)
[2019-05-06] MEDS: DOCUSATE SODIUM 100 MG CAP PO SCH (08:15)
[2019-05-06] MEDS: ARIPiprazole 15 MG TAB PO SCH (08:15)
[2019-05-06] MEDS: ATORVASTATIN 40 MG TAB PO SCH (08:15)
[2019-05-06] MEDS: NYSTATIN POWDER 15GM BTL EXT SCH ×3 (08:16→20:31)
[2019-05-06] MEDS: METOPROLOL TARTRATE 50 MG TAB PO SCH ×2 (08:16→20:31)
[2019-05-06] MEDS: FLUOXETINE HCL 20 MG CAP PO SCH (08:17)
[2019-05-06] MEDS: PREGABALIN 75 MG CAP PO SCH ×2 (08:21→20:30)
[2019-05-06] MEDS ORDERED: LEVOTHYROXINE SODIUM 75 MCG TABLET PO SCH (09:00)
[2019-05-06] MEDS ORDERED: MAGNESIUM SULFATE / D5W 1 GM/100 ML BAG IV ONE (09:30)
[2019-05-06] MEDS ORDERED: POTASSIUM CHLORIDE 10 MEQ TABCR PO ONE (09:30)
--- NOTE | 2019-05-06 10:00 | Cardiology Progress Note ---
Date of Service May 06, 2019 Assessment & Plan (1) Encephalitis: (2) Sepsis: (3) S/P TAVR (transcatheter aortic valve replacement): (4) Zoster: The patient is doing well. Will await infectious disease opinion but I feel the positive blood culture was a contaminant. Would continue to treat for disseminated zoster. Otherwise the patient is hemodynamically stable. Subjective Patient feels well and has no cardiac complaints today. Review of Systems Review of Systems: All systems reviewed & are unremarkable except as noted in HPI & below Nothing additional. Physical Exam Physical Exam: General: no acute distress and stated age Head: normocephalic, no masses, lesions, tenderness or abnormalities Eyes: conjunctiva are pink and non-injected, sclera clear Neck: supple, no adenopathy, no bruits, normal jugular venous pulse, no hepatojugular reflux Chest: normal shape and normal respiratory effort Lungs: clear to auscultation and percussion Cardiac Exam: - regular rate & rhythm, no murmurs gallops or rubs - normal S1, normal S2 Pulses: 2(+) throughout Abdomen: abdomen soft, non-tender, no abnormal masses and no hepatosplenomegaly Musculoskeletal: no gait disturbance, no joint inflammation, no deforming arthritis Extremities: no edema and no cyanosis Neuro: grossly normal exam Results & Data Vital Signs (Past 12 Hours) Vital Signs Temp Pulse Pulse Resp BP Pulse Ox 05/06/19 07:17 37 C 81 18 133/78 91 05/06/19 03:40 36.7 C 68 19 131/67 97 05/05/19 23:37 36.6 C 81 70 18 107/60 96 Laboratory Results Laboratory Results - last 24 hr 05/03/19 05/03/19 05/03/19 15:50 15:50 15:50 WBC RBC Hgb Hct MCV MCH MCHC RDW Std Deviation RDW Coeff of Valerio Plt Count MPV Sodium Potassium Chloride Carbon Dioxide Anion Gap BUN Creatinine Est Cr Clr Drug Dosing Est GFR ( Amer) Est GFR (Non-Af Amer) BUN/Creatinine Ratio Glucose POC Glucose Calcium Magnesium Fld Lyme DNA (PCR) Cancelled Pending Vancomycin Trough Lyme Specimen Source Cancelled Pending Herpes Virus Source Cancelled Pending HSV I DNA PCR Cancelled Pending HSV II DNA PCR Cancelled Pending Varicella-Zoster Source Pending VZV DNA (PCR) Pending 05/05/19 05/05/19 05/05/19 11:14 11:51 16:34 WBC RBC Hgb Hct MCV MCH MCHC RDW Std Deviation RDW Coeff of Valerio Plt Count MPV Sodium Potassium Chloride Carbon Dioxide Anion Gap BUN Creatinine Est Cr Clr Drug Dosing Est GFR ( Amer) Est GFR (Non-Af Amer) BUN/Creatinine Ratio Glucose POC Glucose 184 H 201 H Calcium Magnesium Fld Lyme DNA (PCR) Vancomycin Trough 7.9 Lyme Specimen Source Herpes Virus Source HSV I DNA PCR HSV II DNA PCR Varicella-Zoster Source VZV DNA (PCR) 05/05/19 05/06/19 05/06/19 20:16 06:56 06:56 WBC 7.02 RBC 4.01 L Hgb 11.9 L Hct 34.3 L MCV 85.5 MCH 29.7 MCHC 34.7 RDW Std Deviation 48.6 H RDW Coeff of Valerio 15.5 H Plt Count 81 L MPV 10.8 H Sodium 139 Potassium 3.0 L Chloride 102 Carbon Dioxide 29 Anion Gap 8.0 BUN 20 H Creatinine 1.00 Est Cr Clr Drug Dosing 63.0 Est GFR ( Amer) 70.9 Est GFR (Non-Af Amer) 61.2 BUN/Creatinine Ratio 20.3 H Glucose 73 POC Glucose 271 H Calcium 8.4 L Magnesium 1.7 L Fld Lyme DNA (PCR) Vancomycin Trough Lyme Specimen Source Herpes Virus Source HSV I DNA PCR HSV II DNA PCR Varicella-Zoster Source VZV DNA (PCR) 05/06/19 07:14 WBC RBC Hgb Hct MCV MCH MCHC RDW Std Deviation RDW Coeff of Valerio Plt Count MPV Sodium Potassium Chloride Carbon Dioxide Anion Gap BUN Creatinine Est Cr Clr Drug Dosing Est GFR ( Amer) Est GFR (Non-Af Amer) BUN/Creatinine Ratio Glucose POC Glucose 77 Calcium Magnesium Fld Lyme DNA (PCR) Vancomycin Trough Lyme Specimen Source Herpes Virus Source HSV I DNA PCR HSV II DNA PCR Varicella-Zoster Source VZV DNA (PCR) Medications Administered Current Inpatient Medications Acetaminophen (Tylenol) 650 mg PO Q4H PRN PRN Reason: Pain or Fever Stop: 06/01/19 20:21 Last Admin: 05/04/19 14:49 Dose: 650 mg Documented by: Al Hydrox/Mg Hydrox/Simethicone (Maalox) 15 ml PO Q4H PRN PRN Reason: Dyspepsia Stop: 06/01/19 20:21 Aripiprazole (Abilify) 30 mg PO QAM [facility]GEN[facility] Stop: 06/04/19 08:59 Last Admin: 05/06/19 08:15 Dose: 30 mg Documented by: Aspirin (Ecotrin Ectab) 81 mg PO DAILY [facility] Stop: 06/05/19 08:59 Last Admin: 05/06/19 08:14 Dose: 81 mg Documented by: Atorvastatin Calcium (Lipitor) 40 mg PO DAILY [facility] Stop: 06/04/19 08:59 Last Admin: 05/06/19 08:15 Dose: 40 mg Documented by: Buspirone HCl (Buspar) 15 mg PO BID [facility] Stop: 06/03/19 20:59 Last Admin: 05/06/19 08:14 Dose: 15 mg Documented by: Clopidogrel Bisulfate (Plavix) 75 mg PO DAILY [facility] Stop: 06/05/19 08:59 Last Admin: 05/06/19 08:14 Dose: 75 mg Documented by: Dextrose (Dextrose 50%) 25 - 50 ml IV UD PRN; Protocol PRN Reason: Hypoglycemia Protocol Stop: 06/01/19 20:21 Last Admin: 05/03/19 04:17 Dose: 25 ml Documented by: Dextrose (Dextrose 50%) 25 - 50 ml IV UD PRN; Protocol PRN Reason: Hypoglycemia Protocol Stop: 06/01/19 20:59 Diclofenac Sodium (Voltaren 1% Top) 1 appln EXT BID PRN PRN Reason: rash pain Stop: 06/03/19 20:59 Last Admin: 05/05/19 15:43 Dose: 1 appln Documented by: Docusate Sodium (Colace) 100 mg PO DAILY [facility] Stop: 06/04/19 08:59 Last Admin: 05/06/19 08:15 Dose: 100 mg Documented by: Fluoxetine HCl (Prozac) 20 mg PO DAILY [facility] Stop: 06/04/19 08:59 Last Admin: 05/06/19 08:17 Dose: 20 mg Documented by: Furosemide (Lasix) 40 mg PO DAILY PRN PRN Reason: Edema Stop: 06/04/19 09:44 Glucagon (Glucagen) 1 mg SQ UD PRN; Protocol PRN Reason: Hypoglycemia Protocol Stop: 06/01/19 20:21 Glucagon (Glucagen) 1 mg SQ UD PRN; Protocol PRN Reason: Hypoglycemia Protocol Stop: 06/01/19 20:59 Glucose (Glucose 40%) 15 - 30 gm PO UD PRN; Protocol PRN Reason: Hypoglycemia Protocol Stop: 06/01/19 20:21 Glucose (Dex4 Glucose) 4 - 8 tabs PO UD PRN; Protocol PRN Reason: Hypoglycemia Protocol Stop: 06/01/19 20:21 Glucose (Glucose 40%) 15 - 30 gm PO UD PRN; Protocol PRN Reason: Hypoglycemia Protocol Stop: 06/01/19 20:59 Glucose (Dex4 Glucose) 4 - 8 tabs PO UD PRN; Protocol PRN Reason: Hypoglycemia Protocol Stop: 06/01/19 20:59 Heparin Sodium (Porcine) (Heparin Sodium (Porcine)) 5,000 units SQ Q8 [facility] Stop: 06/01/19 21:59 Last Admin: 05/03/19 06:16 Dose: 5,000 units Documented by: Acyclovir Sodium 430 mg/ (Dextrose) 108.6 mls @ 100 mls/hr IV Q8H [facility]; Protocol Stop: 05/13/19 03:59 Last Infusion: 05/06/19 04:13 Dose: Infused Documented by: Potassium Chloride (K Anthony / Wtr) 10 meq in 100 mls @ 100 mls/hr IV Q1H [facility] Stop: 05/06/19 12:29 Magnesium Sulfate/Dextrose (Magnesium Sulfate / D5w) 1 gm in 100 mls @ 100 mls/hr IV ONE ONE Stop: 05/06/19 10:29 Insulin Aspart (Novolog Flexpen) 0 units SC ACHS [facility]; Protocol Stop: 06/02/19 16:29 Last Admin: 05/06/19 08:11 Dose: 21 units Documented by: Insulin Human NPH (Novolin N Nph) 100 units SC BIDM [facility]; Protocol Stop: 06/04/19 07:59 Last Admin: 05/06/19 08:13 Dose: 100 units Documented by: Ioversol (Optiray 320 100ml) 93 ml IV ONCE PRN PRN Reason: Interaction Checking Stop: 05/07/19 13:09 Last Admin: 05/03/19 13:15 Dose: 93 ml Documented by: Levothyroxine Sodium (Synthroid) 75 mcg PO DAILYBB [facility] Stop: 06/04/19 06:29 Last Admin: 05/06/19 05:53 Dose: 75 mcg Documented by: Magnesium Hydroxide (Milk Of Magnesia) 30 ml PO Q12H PRN PRN Reason: Constipation Stop: 06/01/19 20:21 Metoprolol Tartrate (Lopressor) 50 mg PO BID [facility] Stop: 06/03/19 20:59 Last Admin: 05/06/19 08:16 Dose: 50 mg Documented by: Miscellaneous (Carbohydrates For Hypoglycemia) 15 - 30 gm PO UD PRN PRN Reason: Hypoglycemia Treatment Stop: 06/01/19 20:21 Last Admin: 05/03/19 08:10 Dose: 15 gm Documented by: Miscellaneous (Carbohydrates For Hypoglycemia) 15 - 30 gm PO UD PRN PRN Reason: Hypoglycemia Treatment Stop: 06/01/19 20:59 Miscellaneous Information () 1 ea N/A UD PRN PRN Reason: Consult Stop: 06/01/19 20:42 Miscellaneous Information (Consult Glycemic Management Pharmacy) 1 ea N/A UD PRN; Protocol PRN Reason: Consult Stop: 06/01/19 20:43 Nystatin (Mycostatin) 1 appln EXT TID [facility] Stop: 06/03/19 20:59 Last Admin: 05/06/19 08:16 Dose: 1 appln Documented by: Ondansetron HCl (Zofran) 4 mg IV Q6H PRN PRN Reason: Nausea Stop: 06/01/19 20:21 Polyethylene Glycol (Miralax Powder Packet) 17 gm PO DAILY PRN PRN Reason: Constipation Stop: 06/01/19 20:21 Potassium Chloride (Klor-Con M20) 20 meq PO BID [facility] Stop: 06/06/19 08:59 Pregabalin (Lyrica) 75 mg PO BID [facility] Stop: 06/03/19 20:59 Last Admin: 05/06/19 08:21 Dose: 75 mg Documented by: Spironolactone (Aldactone) 12.5 mg PO DAILY [facility] Stop: 06/04/19 10:14 Last Admin: 05/06/19 08:14 Dose: 12.5 mg Documented by: Torsemide (Demadex) 20 mg PO BID17 [facility] Stop: 06/03/19 16:59 Last Admin: 05/06/19 08:15 Dose: 20 mg Documented by: Tramadol HCl (Ultram) 50 mg PO Q4H PRN PRN Reason: Pain Stop: 06/03/19 15:54 (1) Sepsis Sepsis acute organ dysfunction status: unspecified Sepsis type: sepsis due to unspecified organism Qualified Code(s): A41.9 - Sepsis, unspecified organism
[2019-05-06] MEDS: POTASSIUM CHLORIDE / WTR 10 MEQ/100 ML PLCT IV SCH ×3 (10:35→13:55)
--- NOTE | 2019-05-06 12:51 | Infectious Disease Progress Nt ---
Date of Service May 06, 2019 Assessment & Plan (1) Sepsis: no evidence of ongoing encephalopathy on exam today, CSF negative. would continue acyclovir for now, can change to po valtrex upon d/c, would give 21 days total. (2) Infectious encephalopathy: (3) Herpes zoster: Subjective pt seen in followup, remains on acyclovir, abx stopped, csf culture negative and final. family present. eating lunch on my exam, oob to chair. still having back pain in area of shingles, somewhat better. no f/c. no adame, no visual changes. no cp, sob, egan, cough, no abd pain, no n/v/d. tolerating acyclovir. HSV and VZV pcr pending. wbc 7. All remaining ros reviewed and are negative. Review of Systems Review of Systems: All systems reviewed & are unremarkable except as noted in HPI & below Physical Exam Constitutional: WD/WN, vitals as above Eyes: PERRL, conjunctivae normal, anicteric sclerae ENMT: external ear and nose normal, oropharynx normal Neck: normal visual inspection Respiratory: normal respiratory effort, lungs clear to auscultation Cardiovascular: RRR, no murmur, no edema Gastrointestinal (Abdomen): normal bowel sounds, soft, nontender, no hepatosplenomegaly Musculoskeletal: no cyanosis or clubbing, extremities motor strength 5/5 Skin: + rash and + lesion right thoracic dermatome rash remains, no vesicles noted, crusting lesions, tender, no warmth Psychiatric: A+Ox3, euthymic affect Results & Data Vital Signs (Past 12 Hours) Vital Signs Temp Pulse Resp BP Pulse Ox 05/06/19 11:17 37.3 C 82 20 131/78 91 05/06/19 07:17 37 C 81 18 133/78 91 05/06/19 03:40 36.7 C 68 19 131/67 97 Laboratory Results Microbiology 05/02/19 15:05 Blood Aerobic Blood Culture - Preliminary Bacillus species not anthracis 05/02/19 15:05 Blood Anaerobic Blood Culture - Final 05/03/19 15:50 Cerebral Spinal Fluid Gram Stain - Final 05/03/19 15:50 Cerebral Spinal Fluid CSF Culture - Final No growth 05/02/19 15:20 Blood Aerobic Blood Culture - Preliminary No growth in Aerobic bottle after 48 hours. 05/02/19 15:20 Blood Anaerobic Blood Culture - Final 05/03/19 15:50 Cerebral Spinal Fluid Cryptococcal Antigen Test - Final PG Care Time/CCT Total # of Minutes Spent Total Time Spent with Patient: Total time spent is greater than 50% in coordination of care (as documented) at patient's floor/unit and/or counseling patient: (1) Sepsis Sepsis acute organ dysfunction status: unspecified Sepsis type: sepsis due to unspecified organism Qualified Code(s): A41.9 - Sepsis, unspecified organism
--- NOTE | 2019-05-06 15:10 | Pharmacy Report ---
Pharmacy Glycemic Short Note 2 - Date of Service May 06, 2019 - Glycemic Short BSG Results (Last 24 hours): 05/05/19 05/05/19 05/06/19 16:34 20:16 06:56 Glucose 73 POC Glucose 201 H 271 H 05/06/19 05/06/19 07:14 11:16 Glucose POC Glucose 77 278 H OUTPATIENT ANTIDIABETIC REGIMEN: * U-500 - 255units TID with meals * A1c 8.0% 05/03/19 ASSESSMENT: 05/06: * Patient received total of 292 units of insulin yesterday, of which 200 were NPH * Fasting BSG lower at 73 mg/dL - will decrease NPH for this evening so that total insulin is more of a 50/50 split * Lunchtime BSG trending up, will tighten to CF of 1.5 PLAN FOR INPATIENT GLYCEMIC CONTROL: * NPH 100 units this AM, then 75 BID starting this evening * Bolus insulin - tighten * NovoLog per scale Q4H * Goal Range: Low 100 mg/dL - High 150mg/dL * Correction Factor: 5 mg/dL/unit * Carb ratio: 1 unit per 1.5 grams CHO consumed
--- NOTE | 2019-05-06 16:35 | Hospitalist Progress Note ---
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 Valtrex upon discharge, to complete a total of 3 week course Appreciate ID Input (2) Positive blood culture: Ruled out Bacteremia H/O TAVR Blood Culture:1/2: Bacillus species, not antracis--Contamination ECHO: Technically Very limited study Heart valves not well visualized Atrium not well seen Right ventricle not well seen IV vancomycin, aztreonam discontinued Appreciate Cardiology/ID Input (3) Severe sepsis: Resolved (4) Herpes zoster: On Acyclovir Continue voltaren gel, Lyrica (5) Acute decompensated heart failure: Continue home diuretics Monitor volume status IV Lasix PRN Saturating on Room air (6) IDDM (insulin dependent diabetes mellitus): Appreciate inpatient glycemic pharmacist management of insulin Monitor BGs (7) CKD (chronic kidney disease) stage 3, GFR 30-59 ml/min: HEIDY on CKD III Resolved Monitor renal function (8) Thrombocytopenia: Likely due to sepsis No active bleeding issues monitor (9) HTN (hypertension): BP relatively low hold valsartan for now (10) CAD (coronary artery disease): Continue home meds (11) Hypothyroidism: Continue levothyroxine (12) DANYELLE (obstructive sleep apnea): CPAP at bedtime (13) Depression with anxiety: Restarted Abilify, Buspar, and Prozac (14) H/O aortic valve replacement: AVR in 2010 with redo in 2018 TAVR last echo 01/2019 EF 70% with G1DD, patent AVR (15) DVT prophylaxis: Heparin held 2/2 thrombocytopenia. Code Status Full Code Disposition PT/OT prior to DC Subjective Patient is seen and examined at bedside Doing well today No new complaints Reports mild itching of the rash on her back Denies any chest pain, shortness of breath, dizziness, nausea, abdominal pain Review of Systems Review of Systems: All systems reviewed & are unremarkable except as noted in HPI & below Physical Exam Physical Exam: Physical Exam: Vitals signs as noted above General Appearance:Obese, no apparent distress Head: normocephalic, Atraumatic Eyes: normal inspection, EOMI Neck: supple, Trachea midline Respiratory/Chest: Normal breath sounds, CTA Cardiovascular: S1, S2, No murmur Abdomen/GI:Soft, Non tender, +hernia, Bowel sounds present Extremities/Musculoskelatal:normal inspection, Trace edema Neurologic/Psych:AAOX3, grossly no focal neurological deficits Skin: normal color, warm, dermatomal vesicular rash on right side of the back Results & Data Vital Signs (Past 12 Hours) Vital Signs Temp Pulse Resp BP Pulse Ox 05/06/19 15:49 36.9 C 83 18 107/70 91 05/06/19 11:17 37.3 C 82 20 131/78 91 05/06/19 07:17 37 C 81 18 133/78 91 Laboratory Results Short CBC 05/06/19 Range/Units 06:56 WBC 7.02 (4.8-10.8) K/uL Hgb 11.9 L (12.0-16.0) g/dL Hct 34.3 L (37-47) % Plt Count 81 L (130-400) K/uL BMP 05/06/19 06:56 Sodium 139 Potassium 3.0 L Chloride 102 Carbon Dioxide 29 BUN 20 H Creatinine 1.00 Glucose 73 Calcium 8.4 L
[2019-05-07] MEDS: DEXTROSE 5% IV SCH ×2 (04:36→12:33)
[2019-05-07] MEDS: ACYCLOVIR SOD IV SCH ×2 (04:36→12:33)
[2019-05-07] MEDS: LEVOTHYROXINE SODIUM 75 MCG TABLET PO SCH (06:11)
[2019-05-07 06:58] LABS: Hematocrit (blood only) 36.4 % (37-47); Hemoglobin 12.5 g/dL (12.0-16.0); Mean Corpuscular Hgb Conc 34.3 g/dL (32-36); Mean Corpuscular Volume 85.6 fL (80-100); Mean Platelet Volume 10.7 fL (7.4-10.4); Nucleated RBC # (auto) 0.04 K/uL (0-0); Nucleated RBC % (auto) 0.6 %; Platelet Count 109 K/uL (130-400); RDW Coefficient of Variation 15.5 % (11.5-14.5); RDW Standard Deviation 47.9 fL (36.4-46.3); Red Blood Count 4.25 M/uL (4.2-5.4); White Blood Count 6.88 K/uL (4.8-10.8)
[2019-05-07 07:27] LABS: BUN Creatinine Ratio 20.1 (10-20); Creatinine Clr Calc Pharmacy 64.4 ml/min; Est GFR (African American) 72.7; Est GFR (Non-African American) 62.7; Magnesium 1.7 mg/dl (1.8-2.4)
[2019-05-07] MEDS ORDERED: MAGNESIUM SULFATE / D5W 1 GM/100 ML BAG IV ONE (08:15)
[2019-05-07] MEDS: ARIPiprazole 15 MG TAB PO SCH (08:33)
[2019-05-07] MEDS: SPIRONOLACTONE 25 MG TAB PO SCH (08:33)
[2019-05-07] MEDS: ASPIRIN 81 MG ECTAB PO SCH (08:34)
[2019-05-07] MEDS: BusPIRone 15 MG TAB PO SCH (08:34)
[2019-05-07] MEDS: TORSEMIDE 10 MG TAB PO SCH (08:34)
[2019-05-07] MEDS: DOCUSATE SODIUM 100 MG CAP PO SCH (08:34)
[2019-05-07] MEDS: CLOPIDOGREL BISULFATE 75 MG TAB PO SCH (08:35)
[2019-05-07] MEDS: ATORVASTATIN 40 MG TAB PO SCH (08:35)
[2019-05-07] MEDS: METOPROLOL TARTRATE 50 MG TAB PO SCH (08:35)
[2019-05-07] MEDS: NYSTATIN POWDER 15GM BTL EXT SCH ×2 (08:35→12:45)
[2019-05-07] MEDS: FLUOXETINE HCL 20 MG CAP PO SCH (08:36)
[2019-05-07] MEDS: INSULIN HUMAN NPH SC SCH (08:37)
[2019-05-07] MEDS: INSULIN ASPART 100 UNITS/ML 3 ML PEN SC SCH ×2 (08:44→12:34)
[2019-05-07] MEDS: PREGABALIN 75 MG CAP PO SCH (08:44)
[2019-05-07] MEDS: POTASSIUM CHLORIDE / WTR 10 MEQ/100 ML PLCT IV SCH ×2 (08:45→10:00)
[2019-05-07] MEDS ORDERED: POTASSIUM CHLORIDE 20 MEQ TABCR PO SCH (09:00)
[2019-05-07] MEDS ORDERED: POTASSIUM CHLORIDE 10 MEQ TABCR PO STA (10:38)
--- NOTE | 2019-05-07 10:59 | Cardiology Progress Note ---
Date of Service May 07, 2019 Assessment & Plan (1) Encephalitis: (2) Sepsis: (3) S/P TAVR (transcatheter aortic valve replacement): (4) Zoster: The patient is to be switched over to oral antiviral agents. No additional cardiac testing is indicated at this time. From a cardiac standpoint the patient can be discharged per the hospitalist. Subjective Uneventful night. ID note appreciated. Review of Systems Review of Systems: All systems reviewed & are unremarkable except as noted in HPI & below No additional information. Physical Exam Physical Exam: General: no acute distress and stated age Head: normocephalic, no masses, lesions, tenderness or abnormalities Eyes: conjunctiva are pink and non-injected, sclera clear Neck: supple, no adenopathy, no bruits, normal jugular venous pulse, no hepatojugular reflux Chest: normal shape and normal respiratory effort Lungs: clear to auscultation and percussion Cardiac Exam: - regular rate & rhythm, no murmurs gallops or rubs - normal S1, normal S2 Pulses: 2(+) throughout Abdomen: abdomen soft, non-tender, no abnormal masses and no hepatosplenomegaly Musculoskeletal: no gait disturbance, no joint inflammation, no deforming arthritis Extremities: no edema and no cyanosis Neuro: grossly normal exam Results & Data Vital Signs (Past 12 Hours) Vital Signs Temp Pulse Pulse Resp BP Pulse Ox 05/07/19 07:45 36.5 C 73 22 129/75 94 05/07/19 03:52 36.9 C 73 22 130/74 94 05/06/19 23:50 37.1 C 70 22 120/69 96 05/06/19 23:05 78 20 99 Laboratory Results Laboratory Results - last 24 hr 05/06/19 05/06/19 05/06/19 11:16 16:47 20:35 WBC RBC Hgb Hct MCV MCH MCHC RDW Std Deviation RDW Coeff of Valerio Plt Count MPV Absolute Nucleated RBC Nucleated RBC % (auto) Sodium Potassium Chloride Carbon Dioxide Anion Gap BUN Creatinine Est Cr Clr Drug Dosing Est GFR ( Amer) Est GFR (Non-Af Amer) BUN/Creatinine Ratio Glucose POC Glucose 278 H 176 H 151 H Calcium Magnesium 05/07/19 05/07/19 05/07/19 06:44 06:44 07:16 WBC 6.88 RBC 4.25 Hgb 12.5 Hct 36.4 L MCV 85.6 MCH 29.4 MCHC 34.3 RDW Std Deviation 47.9 H RDW Coeff of Valerio 15.5 H Plt Count 109 L MPV 10.7 H Absolute Nucleated RBC 0.04 H Nucleated RBC % (auto) 0.6 Sodium 139 Potassium 3.0 L Chloride 101 Carbon Dioxide 29 Anion Gap 9.0 BUN 20 H Creatinine 0.98 Est Cr Clr Drug Dosing 64.4 Est GFR ( Amer) 72.7 Est GFR (Non-Af Amer) 62.7 BUN/Creatinine Ratio 20.1 H Glucose 94 POC Glucose 93 Calcium 8.0 L Magnesium 1.7 L Medications Administered Current Inpatient Medications Acetaminophen (Tylenol) 650 mg PO Q4H PRN PRN Reason: Pain or Fever Stop: 06/01/19 20:21 Last Admin: 05/04/19 14:49 Dose: 650 mg Documented by: Al Hydrox/Mg Hydrox/Simethicone (Maalox) 15 ml PO Q4H PRN PRN Reason: Dyspepsia Stop: 06/01/19 20:21 Aripiprazole (Abilify) 30 mg PO QAM [facility] Stop: 06/04/19 08:59 Last Admin: 05/07/19 08:33 Dose: 30 mg Documented by: Aspirin (Ecotrin Ectab) 81 mg PO DAILY [facility] Stop: 06/05/19 08:59 Last Admin: 05/07/19 08:34 Dose: 81 mg Documented by: Atorvastatin Calcium (Lipitor) 40 mg PO DAILY [facility] Stop: 06/04/19 08:59 Last Admin: 05/07/19 08:35 Dose: 40 mg Documented by: Buspirone HCl (Buspar) 15 mg PO BID [facility] Stop: 06/03/19 20:59 Last Admin: 05/07/19 08:34 Dose: 15 mg Documented by: Clopidogrel Bisulfate (Plavix) 75 mg PO DAILY [facility] Stop: 06/05/19 08:59 Last Admin: 05/07/19 08:35 Dose: 75 mg Documented by: Dextrose (Dextrose 50%) 25 - 50 ml IV UD PRN; Protocol PRN Reason: Hypoglycemia Protocol Stop: 06/01/19 20:21 Last Admin: 05/03/19 04:17 Dose: 25 ml Documented by: Dextrose (Dextrose 50%) 25 - 50 ml IV UD PRN; Protocol PRN Reason: Hypoglycemia Protocol Stop: 06/01/19 20:59 Diclofenac Sodium (Voltaren 1% Top) 1 appln EXT BID PRN PRN Reason: rash pain Stop: 06/03/19 20:59 Last Admin: 05/05/19 15:43 Dose: 1 appln Documented by: Docusate Sodium (Colace) 100 mg PO DAILY [facility] Stop: 06/04/19 08:59 Last Admin: 05/07/19 08:34 Dose: 100 mg Documented by: Fluoxetine HCl (Prozac) 20 mg PO DAILY [facility] Stop: 06/04/19 08:59 Last Admin: 05/07/19 08:36 Dose: 20 mg Documented by: Furosemide (Lasix) 40 mg PO DAILY PRN PRN Reason: Edema Stop: 06/04/19 09:44 Glucagon (Glucagen) 1 mg SQ UD PRN; Protocol PRN Reason: Hypoglycemia Protocol Stop: 06/01/19 20:21 Glucagon (Glucagen) 1 mg SQ UD PRN; Protocol PRN Reason: Hypoglycemia Protocol Stop: 06/01/19 20:59 Glucose (Glucose 40%) 15 - 30 gm PO UD PRN; Protocol PRN Reason: Hypoglycemia Protocol Stop: 06/01/19 20:21 Glucose (Dex4 Glucose) 4 - 8 tabs PO UD PRN; Protocol PRN Reason: Hypoglycemia Protocol Stop: 06/01/19 20:21 Glucose (Glucose 40%) 15 - 30 gm PO UD PRN; Protocol PRN Reason: Hypoglycemia Protocol Stop: 06/01/19 20:59 Glucose (Dex4 Glucose) 4 - 8 tabs PO UD PRN; Protocol PRN Reason: Hypoglycemia Protocol Stop: 06/01/19 20:59 Heparin Sodium (Porcine) (Heparin Sodium (Porcine)) 5,000 units SQ Q8 [facility] Stop: 06/01/19 21:59 Last Admin: 05/03/19 06:16 Dose: 5,000 units Documented by: Acyclovir Sodium 430 mg/ (Dextrose) 108.6 mls @ 100 mls/hr IV Q8H [facility]; Protocol Stop: 05/07/19 14:00 Last Infusion: 05/07/19 06:10 Dose: Infused Documented by: Acyclovir Sodium 450 mg/ (Dextrose) 109 mls @ 100 mls/hr IV Q8H [facility]; Protocol Stop: 05/13/19 03:59 Insulin Aspart (Novolog Flexpen) 0 units SC ACHS [facility]; Protocol Stop: 06/02/19 16:29 Last Admin: 05/07/19 08:44 Dose: 32 units Documented by: Insulin Human NPH (Novolin N Nph) 75 units SC BIDM [facility]; Protocol Stop: 06/05/19 16:59 Last Admin: 05/07/19 08:37 Dose: 75 units Documented by: Ioversol (Optiray 320 100ml) 93 ml IV ONCE PRN PRN Reason: Interaction Checking Stop: 05/07/19 13:09 Last Admin: 05/03/19 13:15 Dose: 93 ml Documented by: Levothyroxine Sodium (Synthroid) 75 mcg PO DAILYBB [facility] Stop: 06/04/19 06:29 Last Admin: 05/07/19 06:11 Dose: 75 mcg Documented by: Magnesium Hydroxide (Milk Of Magnesia) 30 ml PO Q12H PRN PRN Reason: Constipation Stop: 06/01/19 20:21 Metoprolol Tartrate (Lopressor) 50 mg PO BID [facility] Stop: 06/03/19 20:59 Last Admin: 05/07/19 08:35 Dose: 50 mg Documented by: Miscellaneous (Carbohydrates For Hypoglycemia) 15 - 30 gm PO UD PRN PRN Reason: Hypoglycemia Treatment Stop: 06/01/19 20:21 Last Admin: 05/03/19 08:10 Dose: 15 gm Documented by: Miscellaneous (Carbohydrates For Hypoglycemia) 15 - 30 gm PO UD PRN PRN Reason: Hypoglycemia Treatment Stop: 06/01/19 20:59 Miscellaneous Information () 1 ea N/A UD PRN PRN Reason: Consult Stop: 06/01/19 20:42 Miscellaneous Information (Consult Glycemic Management Pharmacy) 1 ea N/A UD PRN; Protocol PRN Reason: Consult Stop: 06/01/19 20:43 Nystatin (Mycostatin) 1 appln EXT TID [facility] Stop: 06/03/19 20:59 Last Admin: 05/07/19 08:35 Dose: 1 appln Documented by: Ondansetron HCl (Zofran) 4 mg IV Q6H PRN PRN Reason: Nausea Stop: 06/01/19 20:21 Polyethylene Glycol (Miralax Powder Packet) 17 gm PO DAILY PRN PRN Reason: Constipation Stop: 06/01/19 20:21 Potassium Chloride (Klor-Con M20) 20 meq PO BID [facility] Stop: 06/06/19 08:59 Last Admin: 05/07/19 08:34 Dose: 20 meq Documented by: Pregabalin (Lyrica) 75 mg PO BID [facility] Stop: 06/03/19 20:59 Last Admin: 05/07/19 08:44 Dose: 75 mg Documented by: Spironolactone (Aldactone) 12.5 mg PO DAILY [facility] Stop: 06/04/19 10:14 Last Admin: 05/07/19 08:33 Dose: 12.5 mg Documented by: Torsemide (Demadex) 20 mg PO BID17 [facility] Stop: 06/03/19 16:59 Last Admin: 05/07/19 08:34 Dose: 20 mg Documented by: Tramadol HCl (Ultram) 50 mg PO Q4H PRN PRN Reason: Pain Stop: 06/03/19 15:54 (1) Sepsis Sepsis acute organ dysfunction status: unspecified Sepsis type: sepsis due to unspecified organism Qualified Code(s): A41.9 - Sepsis, unspecified organism
--- NOTE | 2019-05-07 13:10 | Hospitalist Progress Note ---
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 Valtrex upon discharge, to complete a total of 3 week course Appreciate ID Input Clinically Improved (2) Positive blood culture: Ruled out Bacteremia H/O TAVR Blood Culture:1/2: Bacillus species, not antracis--Contamination ECHO: Technically Very limited study, Heart valves not well visualized, Atrium not well seen, Right ventricle not well seen IV vancomycin, aztreonam discontinued Appreciate Cardiology/ID Input (3) Severe sepsis: Resolved (4) Herpes zoster: On Acyclovir Continue voltaren gel, Lyrica (5) Acute decompensated heart failure: Continue home diuretics Monitor volume status IV Lasix PRN Saturating on Room air (6) IDDM (insulin dependent diabetes mellitus): Appreciate inpatient glycemic pharmacist management of insulin Monitor BGs (7) CKD (chronic kidney disease) stage 3, GFR 30-59 ml/min: HEIDY on CKD III Resolved Monitor renal function (8) Thrombocytopenia: Likely due to sepsis No active bleeding issues monitor (9) HTN (hypertension): BP slowly improving hold valsartan for now (10) CAD (coronary artery disease): Continue home meds (11) Hypothyroidism: Continue levothyroxine (12) DANYELLE (obstructive sleep apnea): CPAP at bedtime (13) Depression with anxiety: Restarted Abilify, Buspar, and Prozac (14) H/O aortic valve replacement: AVR in 2010 with redo in 2018 TAVR last echo 01/2019 EF 70% with G1DD, patent AVR (15) DVT prophylaxis: Heparin held 2/2 thrombocytopenia. Code Status Full Code Disposition PT/OT: Recommend return home Subjective Patient is seen and examined at bedside Still has some itching of the rash on her back Denies any chest pain, shortness of breath, dizziness, nausea, abdominal pain Offers no other complaints Eager to get discharged Review of Systems Review of Systems: All systems reviewed & are unremarkable except as noted in HPI & below Physical Exam Physical Exam: Physical Exam: Vitals signs as noted above General Appearance:Obese, no apparent distress Head: normocephalic, Atraumatic Eyes: normal inspection, EOMI Neck: supple, Trachea midline Respiratory/Chest: Normal breath sounds, CTA Cardiovascular: S1, S2, No murmur Abdomen/GI:Soft, Non tender, +hernia, Bowel sounds present Extremities/Musculoskelatal:normal inspection, Trace edema Neurologic/Psych:AAOX3, grossly no focal neurological deficits Skin: normal color, warm, dermatomal vesicular rash on right side of the back Results & Data Vital Signs (Past 12 Hours) Vital Signs Temp Pulse Resp BP Pulse Ox 05/07/19 10:54 36.8 C 74 18 113/74 96 05/07/19 07:45 36.5 C 73 22 129/75 94 05/07/19 03:52 36.9 C 73 22 130/74 94 Laboratory Results Short CBC 05/07/19 Range/Units 06:44 WBC 6.88 (4.8-10.8) K/uL Hgb 12.5 (12.0-16.0) g/dL Hct 36.4 L (37-47) % Plt Count 109 L (130-400) K/uL BMP 05/07/19 06:44 Sodium 139 Potassium 3.0 L Chloride 101 Carbon Dioxide 29 BUN 20 H Creatinine 0.98 Glucose 94 Calcium 8.0 L
--- NOTE | 2019-05-07 13:26 | Discharge Summary ---
Date of Service May 07, 2019 Admission HPI Per Admitting Provider This is a 58-year-old female who has a significant PMH of IDDM, chronic diastolic heart failure, severe aortic stenosis status post AVR in 2011 with revision of TAVR in 2018, HTN, DANYELLE on CPAP, depression with anxiety, schizoaffective disorder, CKD stage III, history of colon and breast CA in remission, cervical spine stenosis who presents to [facility] ED secondary to fever, ill feeling x1 day. Patient erikance is at bedside. Patient poor historian due to underlying illness and confusion. She admits to shortness of breath, increasing shortness breath with exertion, orthopnea, dry cough x2 days, chest pain with inspiration, fever, sweats, abdominal pain with known hernia. Noted symptoms started 1 day ago. Denies any chills, lightheadedness, dyspnea, hemoptysis, nausea, diarrhea, melena, hematochezia, dysuria, increased urgency or frequency with urination. Poor p.o. intake in the past 24 hours. Denies taking insulin all problems today and unsure what she took for the past 2 days. He also complains of rash on her back. History/ROS likely unreliable due to patient's encephalopathy. Pt didn't weigh herself this morning. Unsure if weight gain. Admission Exam Per Admitting Provider Gen: Chronically ill, obese, F, appears acutely ill, NAD, sitting up in bed, but does become dyspneic with lying flat, confused but answers most questions appropriately Head: Normocephalic, Atraumatic, facial flushing Eyes: Sclera normal, no conjunctival injection, PERRLA, EOMI ENT: Gross hearing intact, normal pharynx, mucous membranes moist Neck: supple, no adenopathy, No JVD, no bruit, Resp: Clear to auscultation b/l, no wheeze, rales, rhonchi. 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 Extremities: significant +3 lower ext pitting edema b/l Skin: warm, moist, +erythematous, vesicular rash noted on R thoracolumbar region, negative turgor, cap refill < 2sec Neuro: Alert and oriented to self, speech normal but slow, flat mood/affect, cran nerve 2-12 intact grossly : deferred Principal Diagnosis Discharge Information Discharge Diagnosis Sepsis Metabolic encephalopathy Herpes zoster Acute decompensated heart failure Acute Kidney Injury Discharge Goals Decrease discomfort,Improve function,Improve disease control Discharge Activity Limitations Resume your previous activity Discharge Data Allergies Allergy/AdvReac Type Severity Reaction Status Date / Time lisinopril Allergy Unknown unk Verified 07/03/18 07:56 Penicillins Allergy Unknown . Verified 07/03/18 07:56 adhesive tape Allergy CAN NOT Verified 05/02/19 17:36 TOLERATE BANDAIDS monosodium glutamate Allergy EDEMA OF Verified 05/02/19 17:36 HANDS & FEET Consultations 05/02/19 17:06 ED Decision to Admit Stat 05/02/19 20:22 Consult Case Management - Discharge Planning Routine 05/03/19 14:06 Consult Cardiology Routine 05/03/19 14:07 Consult Infectious Diseases Routine Procedures Performed CT ABD: 1. Hepatosplenomegaly. 2. Hepatic steatosis. 3. Large ventral hernia with superimposed smaller hernias. No bowel obstruction. 4. Pulmonary vascular prominence suggests volume overload. CXR: 1. Cardiomegaly with pulmonary vascular congestion. 2. Prior median sternotomy with prosthetic aortic valve. 3. Increased density of the left lung base redemonstrated likely secondary to summation density from asymmetric left breast augmentation/sandwich hand. Superimpose d airspace disease would be difficult to exclude. CT head: No acute intracranial abnormality. 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 Valtrex upon discharge, to complete a total of 3 week course Appreciate ID Input Clinically Improved (2) Positive blood culture: Ruled out Bacteremia H/O TAVR Blood Culture:1/: Bacillus species, not antracis--Contamination ECHO: Technically Very limited study, Heart valves not well visualized, Atrium not well seen, Right ventricle not well seen IV vancomycin, aztreonam discontinued Appreciate Cardiology/ID Input (3) Severe sepsis: Resolved (4) Herpes zoster: On Acyclovir Continue voltaren gel, Lyrica (5) Acute decompensated heart failure: Continue home diuretics Monitor volume status IV Lasix PRN Saturating on Room air (6) IDDM (insulin dependent diabetes mellitus): Appreciate inpatient glycemic pharmacist management of insulin Monitor BGs (7) CKD (chronic kidney disease) stage 3, GFR 30-59 ml/min: HEIDY on CKD III Resolved Monitor renal function (8) Thrombocytopenia: Likely due to sepsis No active bleeding issues monitor (9) HTN (hypertension): BP slowly improving hold valsartan for now (10) CAD (coronary artery disease): Continue home meds (11) Hypothyroidism: Continue levothyroxine (12) DANYELLE (obstructive sleep apnea): CPAP at bedtime (13) Depression with anxiety: Restarted Abilify, Buspar, and Prozac (14) H/O aortic valve replacement: AVR in 2010 with redo in 2018 TAVR last echo 01/2019 EF 70% with G1DD, patent AVR (15) DVT prophylaxis: Heparin held 2/2 thrombocytopenia. Code Status Full Code Disposition PT/OT: Recommend return home Total Time Total Time Spent Total Time Spent (In Minutes): 45 minutes Total Time Includes: Examination of the Patient, Discharge Planning, Medication Reconciliation, Communication With Other Providers and Other Discharge Plan Discharge Items Patient Disposition: Home - Home Health Services Reason For Visit: SEPSIS Discharge Diagnosis: Sepsis Metabolic encephalopathy Herpes zoster Acute decompensated heart failure Acute Kidney Injury Discharge Goals: Decrease discomfort, Improve disease control and Improve function Activity: Resume your previous activity Exercise/Sports: Gradually increase as tolerated Non-emergency contact: Primary Care Provider Call non-emergency contact if: you have any medication questions, your symptoms worsen, your pain is not controlled, your pain is worsening, your pain is unusual for you, your pain is concerning for you, you have a fever, your wound has increased redness, your wound has increased drainage and your wound pain has increased Follow-up/Referrals: rGegory Rausch MD [Primary Care Provider] - Diet: Carb Consistent or DM2 and Heart Healthy Other Ambulatory Orders: Basic Metabolic Panel (Routine) Timeframe: 3 Days Location: Determined by Patient Ordered By: Nathanael Corado [facility] Provider Instructions: Follow-up with your primary care physician Dr. Rausch on May 12, 2019 at 12:45pm Follow-up with infectious disease, Dr. Lui as needed Complete the antiviral (Valacyclovir) course as recommended by your Infectious disease Seek immediate medical attention if your symptoms reoccur or worsen Get Blood Test (Basic Metabolic Panel) in 3 days and follow up with your Physician with results Prescriptions: New valacyclovir 500 mg Tablet 1,000 mg PO Q8H 16 Days Qty: 96 RF: 0 potassium chloride [Klor-Con M20] 20 mEq Tablet,Er Particles/Crystals 20 meq PO BID 7 Days Qty: 14 RF: 0 Continued multivitamin Tablet 1 tab PO DAILY RF: 0 cyclobenzaprine 10 mg Tablet 10 mg PO HS PRN (Reason: MUSCLE SPASMS) RF: 0 furosemide [Lasix] 40 mg Tablet 40 mg PO DAILY PRN (Reason: ..) RF: 0 atorvastatin [Lipitor] 40 mg tablet 40 mg PO DAILY RF: 0 ammonium lactate 12 % Lotion 1 applic TOPICAL BID RF: 0 metoprolol tartrate [Lopressor] 100 mg tablet 50 mg PO BID RF: 0 torsemide 10 mg tablet 20 mg PO BID RF: 0 melatonin 3 mg Tablet 15 mg PO HS RF: 0 clopidogrel [Plavix] 75 mg tablet 75 mg PO DAILY RF: 0 aspirin [Aspir-81] 81 mg Tablet,Delayed Release (Dr/Ec) 81 mg PO DAILY RF: 0 hydrocortisone acetate [Anusol-HC] 25 mg Suppository 25 mg DE HS RF: 0 levothyroxine 75 mcg tablet 75 mcg PO DAILY RF: 0 meclizine 25 mg tablet 50 mg PO BID RF: 0 chromium picolinate 200 mcg Tablet 200 mcg PO DAILY RF: 0 docusate sodium [Colace] 100 mg Capsule 100 mg PO DAILY RF: 0 vitamin B complex Tablet 1 tab PO DAILY RF: 0 nystatin [Nyamyc] 100,000 unit/gram powder 1 applic topical TID RF: 0 fluoxetine [Prozac] 20 mg capsule 20 mg PO DAILY RF: 0 buspirone 15 mg tablet 15 mg PO BID RF: 0 valsartan [Diovan] 40 mg tablet 20 mg PO DAILY RF: 0 aripiprazole [Abilify] 30 mg tablet 30 mg PO QAM RF: 0 Systane (PF) 0.4-0.3 % Dropperette 1 drp OPHTHALMIC (EYE) UD PRN (Reason: Dry Eyes) RF: 0 pregabalin [Lyrica] 75 mg capsule 75 mg PO BID RF: 0 omega 8-hms-cau-fish oil [Fish Oil] 1,000 mg (120 mg-180 mg) Capsule 1 cap PO DAILY RF: 0 Humulin R U-500 (Conc) Kwikpen 500 unit/mL (3 mL) insulin pen 255 unit subcut AC RF: 0 spironolactone 25 mg Tablet 12.5 mg PO DAILY RF: 0 Stand-Alone Forms: [facility] Discharge Orders: Discharge Order (Routine); Ordered 05/07/19 Ordered By: Nathanael Corado Admission Data Admit Date/Time: 05/02/19 17:23 Attending Provider: Nathanael Corado Admit Provider: Nathanael Corado Primary Care Provider: Gregory Rausch Other Providers: Nathanael Corado ; Feng Lantigua Evan T. ; Annalise Escobar Service: Telemetry Other Interventions: Discharge Summary Assessment (RN) Last Done: 05/07/19 15:58 Pending Studies at Discharge: Yes Studies:: Serological Work Up DC Date/Time DO NOT enter until pt leaves facility: 05/07/19 16:29
[2019-05-07] MEDS ORDERED: VALACYCLOVIR HCL 500 MG TABLET PO SCH (14:00)
[2019-05-07] MEDS ORDERED: ACYCLOVIR SOD 450 MG in DEXTROSE 5% 100 ML IV SCH (20:00)
[2019-05-08 16:50] LABS: HSV Type 1 DNA Not Detected (Not Detected); HSV Type 1&2 DNA Source CSF; HSV Type 2 DNA Not Detected (Not Detected); Lyme DNA PCR CSF or Synovial Not detected (Not Detected); Lyme DNA Source CSF; VZ DNA Source CSF
== END 2019-05-07 16:29 | disposition home health service (06) | DRG 871 ==
LOC: ED 14:38 → SUATTDRO 17:23 → 2S 17:23
DX: Z95.2 Presence of prosthetic heart valve; G93.41 Metabolic encephalopathy; Z79.899 Other long term (current) drug therapy; E66.9 Obesity, unspecified; I50.33 Acute on chronic diastolic (congestive) heart failure; B00.7 Disseminated herpesviral disease; E11.65 Type 2 diabetes mellitus with hyperglycemia; B02.0 Zoster encephalitis; N18.3 Chronic kidney disease, stage 3 (moderate); E78.5 Hyperlipidemia, unspecified; I13.0 Hypertensive heart and chronic kidney disease with heart failure and stage 1 through stage 4 chronic kidney disease, or unspecified chronic kidney disease; Z91.048 Other nonmedicinal substance allergy status; Z82.49 Family history of ischemic heart disease and other diseases of the circulatory system; Z51.81 Encounter for therapeutic drug level monitoring; I25.10 Atherosclerotic heart disease of native coronary artery without angina pectoris; N17.9 Acute kidney failure, unspecified; Z77.22 Contact with and (suspected) exposure to environmental tobacco smoke (acute) (chronic); R65.20 Severe sepsis without septic shock; K43.9 Ventral hernia without obstruction or gangrene; E11.22 Type 2 diabetes mellitus with diabetic chronic kidney disease; F25.9 Schizoaffective disorder, unspecified; Z88.0 Allergy status to penicillin; G47.33 Obstructive sleep apnea (adult) (pediatric); Z88.8 Allergy status to other drugs, medicaments and biological substances; Z79.82 Long term (current) use of aspirin; I35.0 Nonrheumatic aortic (valve) stenosis; J96.01 Acute respiratory failure with hypoxia; D69.59 Other secondary thrombocytopenia; E03.9 Hypothyroidism, unspecified; Z68.41 Body mass index [BMI] 40.0-44.9, adult; Z95.5 Presence of coronary angioplasty implant and graft; F41.9 Anxiety disorder, unspecified; E11.649 Type 2 diabetes mellitus with hypoglycemia without coma; Z79.4 Long term (current) use of insulin; Z79.02 Long term (current) use of antithrombotics/antiplatelets; Z83.3 Family history of diabetes mellitus; F32.9 Major depressive disorder, single episode, unspecified

== ENCOUNTER 2022-03-05 01:36 | Inpatient (IN) ==
[2022-03-05] MEDS ORDERED: SODIUM CHLORIDE 0.9% 1000ML 1,000 ML IV SCH (02:15)
[2022-03-05 02:32] LABS: Basophils # (auto) 0.02 K/uL (0-0.2); Basophils % (auto) 0.2 %; Eosinophils # (auto) 0.07 K/uL (0-0.5); Eosinophils % (auto) 0.8 %; Hematocrit (blood only) 40.1 % (37-47); Hemoglobin 13.8 g/dL (12.0-16.0); Immature Granulocytes # (auto) 0.02 K/uL (0.00-0.02); Immature Granulocytes % (auto) 0.2 %; Lymphocytes # (auto) 3.08 K/uL (1.2-3.4); Lymphocytes % (auto) 35.5 %; Mean Corpuscular Hemoglobin 27.5 pg (25-34); Mean Corpuscular Hgb Conc 34.4 g/dL (32-36); Mean Corpuscular Volume 79.9 fL (80-100); Mean Platelet Volume 11.5 fL (7.4-10.4); Monocytes # (auto) 0.73 K/uL (0.11-0.59); Monocytes % (auto) 8.4 %; Neutrophils # (auto) 4.76 K/uL (1.4-6.5); Neutrophils % (auto) 54.9 %; Platelet Count 129 K/uL (130-400); RDW Standard Deviation 43.3 fL (36.4-46.3); Red Blood Count 5.02 M/uL (4.2-5.4); White Blood Count 8.68 K/uL (4.8-10.8)
[2022-03-05 02:44] LABS: Partial Thromboplastin Ratio 0.9; Partial Thromboplastin Time 24.1 Seconds (21.0-31.0); Prothrombin Time 10.9 Seconds (9.0-12.0)
[2022-03-05] MEDS ORDERED: NovoLIN-R INSULIN PER UNIT CHARGE IV STA (02:50)
[2022-03-05 02:59] LABS: Albumin Globulin Ratio 1.3 (0.9-2); BUN Creatinine Ratio 19.2 (10-20); Bilirubin,Total 1.1 mg/dl (0.2-1.0); Calcium 9.5 mg/dl (8.5-10.1); Creatinine Clr Calc Pharmacy 54.7 ml/min; Est GFR (African American) 70.3 ml/min; Est GFR (Non-African American) 60.6 ml/min; Globulin 3.1 gm/dl (2.5-4.0); Magnesium 1.6 mg/dl (1.7-2.4); Potassium 3.5 mmol/L (3.5-5.1); Total Protein 7.1 gm/dl (6.0-8.3)
[2022-03-05 03:08] LABS: Influenza A virus by PCR Negative (Neg); Influenza B virus by PCR Negative (Neg); RSV by PCR Negative (Neg); SARS CoV2 RNA(COVID-19) InHosp NEGATIVE (Negative)
[2022-03-05 03:08] LABS: Base Excess VBG 3.7 mEq/L; Oxygen Saturation VBG 75.8 %; pH VBG 7.46 (7.36-7.41)
[2022-03-05 03:16] LABS: Troponin I High Sensitivity 56.4 pg/ml (0-14)
[2022-03-05] MEDS ORDERED: OPTIRAY 320 125ml IV ONE (04:07)
[2022-03-05 04:32] LABS: Appearance Urine Cloudy (Clear); Bacteria Urine Automated 4+ (Negative); Bilirubin Urine Negative (Negative); Blood Urine Negative (Negative); Cast Urine Automated 0 /lpf (0-5); Color Urine Yellow; Epithelial Cell Urine Auto >30 /lpf (0-5); Glucose Urine UA 3+ (Negative); Ketones Urine Trace (Negative); Leukocyte Esterase Urine 1+ (Negative); Nitrite Urine Negative (Negative); Protein Urine Negative (Negative); RBC Urine Automated 0-4 /hpf (0-4); Specific Gravity Urine 1.025 (1.000-1.030); Urobilinogen Urine Negative (Negative); WBC Urine Automated >30 /hpf (0-5); pH Urine 5.5 (4.5-7.5)
[2022-03-05] MEDS ORDERED: Heparin IV Adult Wt-Based Standard WITH Bolus Protocol IV STA (05:26)
[2022-03-05] MEDS ORDERED: cefTRIAXone SODIUM 2,000 MG/70 ML BAG IV STA (05:26)
[2022-03-05] MEDS ORDERED: HEPARIN SOD (PORCINE) 1000 UNIT/ML IV ONE ×3 (05:42→06:15)
[2022-03-05] MEDS ORDERED: HEPARIN SODIUM/DEXTROSE 25,000 UNITS/500 ML BAG IV SCH (05:45)
--- NOTE | 2022-03-05 06:33 | Emergency Department Note ---
ED Visit Note I was consulted by the Advanced Practice Provider. I saw the patient personally and performed a substantive portion of the visit. This includes aspects of the HPI, MDM, diagnostic interpretations, and disposition/plan. .
--- NOTE | 2022-03-05 06:36 | Emergency Department Note ---
Impression & Plan UTI (urinary tract infection), Altered mental status, Pulmonary embolism ED Provider Note CHIEF COMPLAINT: Illness HISTORY OF PRESENT ILLNESS: Jovita Rose is a 61 year old female with history of CAD s/p HOMER and aortic stenosis s/p TAVR on aspirin and Plavix, HTN, DLD, CKD3, DM2, DANYELLE on CPAP, dCHF, colon cancer, breast cancer s/p mastectomy, schizoaffective bipolar type disorder, among others listed below who presents to the Emergency Department with her son for illness with multiple complaints. The patient is a poor historian and son states that she is much more confused than baseline. She reportedly lives alone and states that she has not been keeping up with her medications. Per patient, she was recently diagnosed with another UTI (notes recurrent issues with this) last week but never picked up her prescription for antibiotics. Since then, she has continued with dysuria, in creased urgency/frequency of urination and worsening lower abdominal pain. Some nausea but no vomiting or diarrhea. She also states that she has felt generally unwell with intermittent dizziness, chest pain (now resolved) and increased shortness of breath. She is unsure if she has had fevers/chills but states that she has had a runny nose and sore throat. The patient states that she has not been checking her blood sugar or taking her medications as she states that her monitor is too hard for her to reach on the back of her arm. REVIEW OF SYSTEMS: 10 systems were reviewed and were negative unless otherwise stated in HPI as above PHYSICAL EXAM: VITALS: Vitals are noted on the nurse's note and reviewed by myself. Initially tachycardic, improved on repeat, additional vital signs stable. General: Resting at the edge of the bed, appears tired and generally unwell HEENT: Normocephalic, atraumatic, pupils 2 mm and reactive to light with EOMI, bilaterally. Mucous membranes extremely dry. Oropharynx clear Neck: Supple, no lymphadenopathy, non-tender Resp: Good inspiratory effort on room air, lung sounds clear bilaterally CV: Tachycardic rate, regular rhythm, normal S1-S2, peripheral pulses palpated Back: Right CVA tenderness to palpation and percussion, left side non-tender Abd: Obese, mildly distended but soft, generalized tenderness to palpation but no rebound, guarding or rigidity MSK: Moving all extremities with strength 5/5 and sensation intact throughout Integumentary: Mildly pale, warm and dry Neuro: Tired and slow to respond, mildly confused with GCS 14 Differential diagnosis includes viral syndrome, otitis, pharyngitis, pneumonia, influenza, meningitis, urinary tract infection, sepsis, bacteremia, as well as other pathologies. EMERGENCY DEPARTMENT COURSE: Physical exam and history were performed. Nursing triage notes, EMR, and medication list were personally reviewed. Patient is a 61 year old female with history of CAD s/p HOMER and aortic stenosis s/p TAVR on aspirin and Plavix, HTN, DLD, CKD3, DM2, DANYELLE on CPAP, dCHF, colon cancer, breast cancer s/p mastectomy, schizoaffective bipolar type disorder, among others listed below who presents to the Emergency Department with her son for illness with multiple complaints. Additional history as above. See physical exam as noted above. Continuous quality assurance monitor final: Order was placed for continuous quality assurance monitor final. Patient was placed on the quality assurance monitor final. Patient was noted to be sinus tachycardic at an initial rate of 115 bpm. EKG was obtained and reviewed by myself. This did show sinus tachycardia at 109 bpm. There is left axis deviation, poor R wave progression and nonspecific ST and T wave abnormalities, however, when compared to study from 05/04/2019, no significant change was found. [id number] glucose was obtained and was elevated at 416. IV access was established and the patient was given NSS 1L bolus and Insulin 10 units IV. Additional labs were obtained and reviewed by myself as blood. Of note, no leukocytosis with a WBC of 8.68. No concern for anemia with hemoglobin 13.8. Coagulation studies WNL. Venous blood gas With mild elevation in pH at 7.46, otherwise WNL. Mild hyponatremia with sodium 132 and hypochloremia with chloride 94. BSG elevated at 460. Lactate elevated at 2.3. Mild hypomagnesemia at 1.6. High sensitivity troponin 1 elevated at 56.4. Urinalysis was obtained and was cloudy in appearance with 3+ glucose, trace ketones, 1+ leukocyte esterase, >30 white blood cells and 4+ bacteria. Possible contamination with >30 epithelial cells. CAT scan of the head, CT PE and CAT scan of the abdomen/pelvis were obtained and reviewed by stat rad radiologist and myself as below. Imaging of the head was negative for acute intracerebral pathology. Imaging of the chest was concerning for PE in the left lower lobe subsegmental pulmonary artery. No additional acute intraabdominal or pelvic findings. Final results pending review by the [facility] Radiologist in the morning. The patient was reevaluated several times throughout her emergency department course, remained stable on the quality assurance monitor final. I discussed the results of the above findings with her and her son at bedside. Given the above findings, she will benefit from continued care in the hospital for treatment of PE and UTI. Heparin was initiated for treatment of PE and Rocephin IV for UTI. I did contact Dr. London of the [facility] service who agreed to evaluate the patient for further management. Patient and son verbalized understanding and agreement with the treatment plan as above. The chart was completed utilizing [employer] Speech Voice Recognition Software. Grammatical errors, random word insertions, pronoun errors, and incomplete sentences are an occasional consequence of this system due to software limitations, ambient noise, and hardware issues. Any formal questions or concerns about the content, text, or information contained within the body of this dictation should be directly addressed to the provider for clarification. Past Med/Surg History Medical History (Updated 03/05/22 @ 20:57 by Mariann Wang PA-C) Anxiety Aortic valvar stenosis Aortic valve stenosis Breast cancer Breast cancer, right breast 2007--Sx, chemo/radiation CAD (coronary artery disease) Cardiac murmur Follows with Dr. Muniz Cataract Cataract of both eyes Colon cancer Colon cancer 2004--sx, no chemo or radiation Depression Depression with anxiety Diabetes mellitus, type 2 Dyslipidemia Heart failure History of removal of breast implant "Left " HTN (hypertension) Hyperlipidemia Hypertension Hypothyroidism Hypothyroidism Liver cirrhosis non-alcoholic On anticoagulant therapy DANYELLE (obstructive sleep apnea) Sleep apnea Cpap Uterine cancer 2014--sx, no chemo/radiation Surgical History H/O aortic valve replacement #25 Manga aortic valve bioprosthesis placed in 2010, and 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 On 11/06/2017 she underwent transcatheter aortic valve replacement receiving a 26 mm Hernandez-Bing S3 prosthesis H/O aortic valve replacement 06/2017 @ [facility] H/O bilateral mastectomy 01/2008--breast cancer H/O breast biopsy right--malignant H/O breast surgery L implant infected and was removed H/O colonoscopy History of appendectomy History of appendectomy History of bilateral tubal ligation History of bowel resection 2004 @ [facility] [place] [facility] d/t Colon Cancer History of breast reconstruction Bilt breast after masectomy History of cardiac cath x2--2011 @ [facility]-no stent, follows with Dr. Muniz History of carpal tunnel release bilt History of carpal tunnel surgery of left wrist TAVR 2018 History of carpal tunnel surgery of right wrist History of section x4 History of colonoscopy History of dilatation and curettage History of esophagogastroduodenoscopy (EGD) History of hysterectomy with bilateral oophorectomy History of open heart surgery 2011 @ [facility] [place] [facility] History of partial colectomy History of percutaneous coronary intervention prior to TAVR in order to protect her left main, she also had a 3.5 x 23 millimeter drug-eluting stent placed in the left main/LAD, which was expanded out into the aorta. History of total abdominal hysterectomy and bilateral salpingo-oophorectomy 2014 D/T uterine cancer Previous section S/P foot surgery, right "foot was widening" S/P mastectomy, bilateral Family History Grandmother Family history of diabetes mellitus maternal Family/Other Family history of diabetes mellitus paternal aunt Father , of premature CAD Coronary heart disease Mother , of premature CAD Coronary heart disease Social History Smoking Status: Never smoker Second Hand Exposure: Yes (PARENTS SMOKE); Hx Alcohol Use: No Hx Substance Use: No Preferred Language: Trinidadian Communication Ability: Effective Optical Coating Technician Required: No Beliefs That Will Affect Care: None marital status: Single marital status details: has fiance Current Living Situation: Alone Current Living Situation Comment: lives in appartment Feels Safe at Home: Yes Safety Concerns: Feels Safe At This Time Assistive Devices: Cane and Walker Allergies Allergies Allergy/AdvReac Type Severity Reaction Status Date / Time lisinopril Allergy Unknown unk Verified 07/03/18 07:56 Penicillins Allergy Unknown . Verified 07/03/18 07:56 adhesive tape Allergy CAN NOT Verified 05/02/19 17:36 TOLERATE BANDAIDS monosodium glutamate Allergy EDEMA OF Verified 05/02/19 17:36 HANDS & FEET Home Meds Home Medications Medication Instructions Recorded Confirmed ammonium lactate 12 % lotion 1 applic TOPICAL BID 05/02/19 05/02/19 aspirin 81 mg tablet,delayed 81 mg PO DAILY 05/02/19 05/02/19 release (Aspir-) atorvastatin 40 mg tablet (Lipitor) 40 mg PO DAILY 05/02/19 05/02/19 buspirone 15 mg tablet 15 mg PO BID 05/02/19 05/02/19 clopidogrel 75 mg tablet (Plavix) 75 mg PO DAILY 05/02/19 05/02/19 cyclobenzaprine 10 mg tablet 10 mg PO HS PRN 05/02/19 05/02/19 docusate sodium 100 mg capsule 100 mg PO DAILY 05/02/19 05/02/19 (Colace) levothyroxine 75 mcg tablet 75 mcg PO DAILY 05/02/19 05/02/19 meclizine 25 mg tablet 50 mg PO BID 05/02/19 05/02/19 melatonin 3 mg tablet 15 mg PO HS 05/02/19 05/02/19 metoprolol tartrate 100 mg tablet 50 mg PO BID 05/02/19 05/02/19 (Lopressor) multivitamin 1 tab PO DAILY 05/02/19 05/02/19 nystatin 100,000 unit/gram topical 1 applic TOPICAL TID 05/02/19 05/02/19 powder (Nyamyc) omega [id number] oil 1,000 mg 1 cap PO DAILY 05/02/19 05/02/19 (120 mg-180 mg) capsule (Fish Oil) pregabalin 75 mg capsule (Lyrica) 75 mg PO BID 05/02/19 05/02/19 torsemide 10 mg tablet 20 mg PO DAILY 05/02/19 05/02/19 valsartan 40 mg tablet (Diovan) 20 mg PO DAILY 05/02/19 05/02/19 vitamin B complex 1 tab PO DAILY 05/02/19 05/02/19 spironolactone 25 mg tablet 25 mg PO DAILY 05/05/19 05/05/19 cariprazine 3 mg capsule (Vraylar) 3 mg PO DAILY 03/05/22 03/05/22 Results & Data (ED) Vital Signs Vital Signs - 24 hr 03/05/22 01:37 03/05/22 02:06 03/05/22 03:00 Temperature 37.5 C Temperature Source Oral Pulse Rate 115 H 107 H Pulse Rate [Apical] Pulse Rate from SpO2 Sensor 107 H Respiratory Rate 20 32 H Respiratory Effort / Characteristics Respiratory Depth Blood Pressure 120/57 L 155/82 H Blood Pressure [Left Arm] Blood Pressure Mean 78 106 Blood Pressure Mean [Left Arm] Pulse Oximetry 94 92 Oxygen Delivery Method Room Air Oxygen Flow Rate Sepsis Recent Fever Within 48 Hours No Sepsis New/Unexplained Change in Mental Status Yes Sepsis Action Taken by Nursing Physician Notified 03/05/22 03:15 03/05/22 03:30 03/05/22 03:31 Temperature Temperature Source Pulse Rate 108 H 105 H 100 H Pulse Rate [Apical] Pulse Rate from SpO2 Sensor Respiratory Rate 14 23 20 Respiratory Effort / Characteristics Respiratory Depth Blood Pressure 157/61 H Blood Pressure [Left Arm] Blood Pressure Mean 93 127 Blood Pressure Mean [Left Arm] Pulse Oximetry Oxygen Delivery Method Oxygen Flow Rate Sepsis Recent Fever Within 48 Hours Sepsis New/Unexplained Change in Mental Status Sepsis Action Taken by Nursing 03/05/22 04:15 03/05/22 04:30 03/05/22 04:45 Temperature Temperature Source Pulse Rate 105 H 102 H 101 H Pulse Rate [Apical] Pulse Rate from SpO2 Sensor 105 H 95 H 101 H Respiratory Rate 12 13 10 L Respiratory Effort / Characteristics Respiratory Depth Blood Pressure Blood Pressure [Left Arm] Blood Pressure Mean Blood Pressure Mean [Left Arm] Pulse Oximetry 94 94 96 Oxygen Delivery Method Oxygen Flow Rate Sepsis Recent Fever Within 48 Hours Sepsis New/Unexplained Change in Mental Status Sepsis Action Taken by Nursing 03/05/22 05:00 03/05/22 07:00 03/05/22 07:05 Temperature Temperature Source Pulse Rate 97 H Pulse Rate [Apical] 97 H Pulse Rate from SpO2 Sensor 97 H Respiratory Rate 17 19 Respiratory Effort / Characteristics Non-Labored Spontaneous Respiratory Depth Normal Blood Pressure Blood Pressure [Left Arm] 169/72 H Blood Pressure Mean Blood Pressure Mean [Left Arm] 104 Pulse Oximetry 97 88 L 93 Oxygen Delivery Method Room Air Nasal Cannula Oxygen Flow Rate 2 Sepsis Recent Fever Within 48 Hours Sepsis New/Unexplained Change in Mental Status Sepsis Action Taken by Nursing Laboratory Data Result diagrams: 03/05/22 02:16 03/05/22 02:16 Lab Results 03/05/22 03/05/22 03/05/22 Range/Units 01:59 02:16 02:16 WBC 8.68 (4.8-10.8) K/uL RBC 5.02 (4.2-5.4) M/uL Hgb 13.8 (12.0-16.0) g/dL Hct 40.1 (37-47) % MCV 79.9 L (80-100) fL MCH 27.5 (25-34) pg MCHC 34.4 (32-36) g/dL RDW Std Deviation 43.3 (36.4-46.3) fL RDW Coeff of Valerio 15.0 H (11.5-14.5) % Plt Count 129 L (130-400) K/uL MPV 11.5 H (7.4-10.4) fL Immature Gran % (Auto) 0.2 % Neut % (Auto) 54.9 % Lymph % (Auto) 35.5 % [place] % (Auto) 8.4 % Eos % (Auto) 0.8 % Baso % (Auto) 0.2 % Neut # (Auto) 4.76 (1.4-6.5) K/uL Lymph # (Auto) 3.08 (1.2-3.4) K/uL [place] # (Auto) 0.73 H (0.11-0.59) K/uL Eos # (Auto) 0.07 (0-0.5) K/uL Baso # (Auto) 0.02 (0-0.2) K/uL Immature Gran # (Auto) 0.02 (0.00-0.02) K/uL PT 10.9 (9.0-12.0) Seconds INR 1.0 (0.9-1.1) APTT 24.1 (21.0-31.0) Seconds PTT Ratio 0.9 VBG pH (7.36-7.41) VBG pCO2 (38-50) mmHg VBG pO2 mmHg VBG HCO3 mmol/L VBG O2 Saturation % VBG Base Excess mEq/L Barometric Pressure mm/Hg Sodium (136-145) mmol/L Potassium (3.5-5.1) mmol/L Chloride (98-107) mmol/L Carbon Dioxide (21-32) mmol/L Anion Gap (3-11) BUN (6-23) mg/dl Creatinine (0.6-1.2) mg/dl Est Cr Clr Drug Dosing ml/min Est GFR ( Amer) ml/min Est GFR (Non-Af Amer) ml/min BUN/Creatinine Ratio (10-20) Glucose (70-99(Fasting)) mg/dl POC Glucose 431 H* (70-99) mg/dl Lactate (0.4-2.0) mmol/L Calcium (8.5-10.1) mg/dl Magnesium (1.7-2.4) mg/dl Total Bilirubin (0.2-1.0) mg/dl AST (13-39) U/L ALT (7-52) U/L Alkaline Phosphatase (34-104) U/L Troponin I High Sens (0-14) pg/ml Total Protein (6.0-8.3) gm/dl Albumin (3.4-5.0) gm/dl Globulin (2.5-4.0) gm/dl Albumin/Globulin Ratio (0.9-2) Urine Color Urine Appearance (Clear) Urine pH (4.5-7.5) Ur Specific [place] (1.000-1.030) Urine Protein (Negative) Urine Glucose (UA) (Negative) Urine Ketones (Negative) Urine Blood (Negative) Urine Nitrite (Negative) Urine Bilirubin (Negative) Urine Urobilinogen (Negative) Ur Leukocyte Esterase (Negative) Urine WBC (Auto) (0-5) /hpf Urine RBC (Auto) (0-4) /hpf U Hyaline Cast (Auto) (0-5) /lpf U Epithel Cells (Auto) (0-5) /lpf Urine Bacteria (Auto) (Negative) SARS-CoV-2 (PCR) (Negative) Influenza Type A (PCR) (Neg) Influenza Type B (PCR) (Neg) RSV (RT-PCR) (Neg) 03/05/22 03/05/22 03/05/22 Range/Units 02:16 02:16 02:16 WBC (4.8-10.8) K/uL RBC (4.2-5.4) M/uL Hgb (12.0-16.0) g/dL Hct (37-47) % MCV (80-100) fL MCH (25-34) pg MCHC (32-36) g/dL RDW Std Deviation (36.4-46.3) fL RDW Coeff of Valerio (11.5-14.5) % Plt Count (130-400) K/uL MPV (7.4-10.4) fL Immature Gran % (Auto) % Neut % (Auto) % Lymph % (Auto) % [place] % (Auto) % Eos % (Auto) % Baso % (Auto) % Neut # (Auto) (1.4-6.5) K/uL Lymph # (Auto) (1.2-3.4) K/uL [place] # (Auto) (0.11-0.59) K/uL Eos # (Auto) (0-0.5) K/uL Baso # (Auto) (0-0.2) K/uL Immature Gran # (Auto) (0.00-0.02) K/uL PT (9.0-12.0) Seconds INR (0.9-1.1) APTT (21.0-31.0) Seconds PTT Ratio VBG pH (7.36-7.41) VBG pCO2 (38-50) mmHg VBG pO2 mmHg VBG HCO3 mmol/L VBG O2 Saturation % VBG Base Excess mEq/L Barometric Pressure mm/Hg Sodium 132 L (136-145) mmol/L Potassium 3.5 (3.5-5.1) mmol/L Chloride 94 L (98-107) mmol/L Carbon Dioxide 27 (21-32) mmol/L Anion Gap 11 (3-11) BUN 19 (6-23) mg/dl Creatinine 0.99 (0.6-1.2) mg/dl Est Cr Clr Drug Dosing 54.7 ml/min Est GFR ( Amer) 70.3 ml/min Est GFR (Non-Af Amer) 60.6 ml/min BUN/Creatinine Ratio 19.2 (10-20) Glucose 460 H* (70-99(Fasting)) mg/dl POC Glucose (70-99) mg/dl Lactate 2.3 H* (0.4-2.0) mmol/L Calcium 9.5 (8.5-10.1) mg/dl Magnesium 1.6 L (1.7-2.4) mg/dl Total Bilirubin 1.1 H (0.2-1.0) mg/dl AST 12 L (13-39) U/L ALT 12 (7-52) U/L Alkaline Phosphatase 79 (34-104) U/L Troponin I High Sens 56.4 H* (0-14) pg/ml Total Protein 7.1 (6.0-8.3) gm/dl Albumin 4.0 (3.4-5.0) gm/dl Globulin 3.1 (2.5-4.0) gm/dl Albumin/Globulin Ratio 1.3 (0.9-2) Urine Color Urine Appearance (Clear) Urine pH (4.5-7.5) Ur Specific [place] (1.000-1.030) Urine Protein (Negative) Urine Glucose (UA) (Negative) Urine Ketones (Negative) Urine Blood (Negative) Urine Nitrite (Negative) Urine Bilirubin (Negative) Urine Urobilinogen (Negative) Ur Leukocyte Esterase (Negative) Urine WBC (Auto) (0-5) /hpf Urine RBC (Auto) (0-4) /hpf U Hyaline Cast (Auto) (0-5) /lpf U Epithel Cells (Auto) (0-5) /lpf Urine Bacteria (Auto) (Negative) SARS-CoV-2 (PCR) NEGATIVE (Negative) Influenza Type A (PCR) Negative (Neg) Influenza Type B (PCR) Negative (Neg) RSV (RT-PCR) Negative (Neg) 03/05/22 03/05/22 03/05/22 Range/Units 02:55 04:16 04:16 WBC (4.8-10.8) K/uL RBC (4.2-5.4) M/uL Hgb (12.0-16.0) g/dL Hct (37-47) % MCV (80-100) fL MCH (25-34) pg MCHC (32-36) g/dL RDW Std Deviation (36.4-46.3) fL RDW Coeff of Valerio (11.5-14.5) % Plt Count (130-400) K/uL MPV (7.4-10.4) fL Immature Gran % (Auto) % Neut % (Auto) % Lymph % (Auto) % [place] % (Auto) % Eos % (Auto) % Baso % (Auto) % Neut # (Auto) (1.4-6.5) K/uL Lymph # (Auto) (1.2-3.4) K/uL [place] # (Auto) (0.11-0.59) K/uL Eos # (Auto) (0-0.5) K/uL Baso # (Auto) (0-0.2) K/uL Immature Gran # (Auto) (0.00-0.02) K/uL PT (9.0-12.0) Seconds INR (0.9-1.1) APTT (21.0-31.0) Seconds PTT Ratio VBG pH 7.46 H (7.36-7.41) VBG pCO2 40 (38-50) mmHg VBG pO2 41 mmHg VBG HCO3 28 mmol/L VBG O2 Saturation 75.8 % VBG Base Excess 3.7 mEq/L Barometric Pressure 730.2 mm/Hg Sodium (136-145) mmol/L Potassium (3.5-5.1) mmol/L Chloride (98-107) mmol/L Carbon Dioxide (21-32) mmol/L Anion Gap (3-11) BUN (6-23) mg/dl Creatinine (0.6-1.2) mg/dl Est Cr Clr Drug Dosing ml/min Est GFR ( Amer) ml/min Est GFR (Non-Af Amer) ml/min BUN/Creatinine Ratio (10-20) Glucose (70-99(Fasting)) mg/dl POC Glucose (70-99) mg/dl Lactate 2.5 H* (0.4-2.0) mmol/L Calcium (8.5-10.1) mg/dl Magnesium (1.7-2.4) mg/dl Total Bilirubin (0.2-1.0) mg/dl AST (13-39) U/L ALT (7-52) U/L Alkaline Phosphatase (34-104) U/L Troponin I High Sens (0-14) pg/ml Total Protein (6.0-8.3) gm/dl Albumin (3.4-5.0) gm/dl Globulin (2.5-4.0) gm/dl Albumin/Globulin Ratio (0.9-2) Urine Color Yellow Urine Appearance Cloudy A (Clear) Urine pH 5.5 (4.5-7.5) Ur Specific [place] 1.025 (1.000-1.030) Urine Protein Negative (Negative) Urine Glucose (UA) 3+ H (Negative) Urine Ketones Trace H (Negative) Urine Blood Negative (Negative) Urine Nitrite Negative (Negative) Urine Bilirubin Negative (Negative) Urine Urobilinogen Negative (Negative) Ur Leukocyte Esterase 1+ H (Negative) Urine WBC (Auto) >30 H (0-5) /hpf Urine RBC (Auto) 0-4 (0-4) /hpf U Hyaline Cast (Auto) 0 (0-5) /lpf U Epithel Cells (Auto) >30 H (0-5) /lpf Urine Bacteria (Auto) 4+ H (Negative) SARS-CoV-2 (PCR) (Negative) Influenza Type A (PCR) (Neg) Influenza Type B (PCR) (Neg) RSV (RT-PCR) (Neg) 03/05/22 Range/Units 04:56 WBC (4.8-10.8) K/uL RBC (4.2-5.4) M/uL Hgb (12.0-16.0) g/dL Hct (37-47) % MCV (80-100) fL MCH (25-34) pg MCHC (32-36) g/dL RDW Std Deviation (36.4-46.3) fL RDW Coeff of Valerio (11.5-14.5) % Plt Count (130-400) K/uL MPV (7.4-10.4) fL Immature Gran % (Auto) % Neut % (Auto) % Lymph % (Auto) % [place] % (Auto) % Eos % (Auto) % Baso % (Auto) % Neut # (Auto) (1.4-6.5) K/uL Lymph # (Auto) (1.2-3.4) K/uL [place] # (Auto) (0.11-0.59) K/uL Eos # (Auto) (0-0.5) K/uL Baso # (Auto) (0-0.2) K/uL Immature Gran # (Auto) (0.00-0.02) K/uL PT (9.0-12.0) Seconds INR (0.9-1.1) APTT (21.0-31.0) Seconds PTT Ratio VBG pH (7.36-7.41) VBG pCO2 (38-50) mmHg VBG pO2 mmHg VBG HCO3 mmol/L VBG O2 Saturation % VBG Base Excess mEq/L Barometric Pressure mm/Hg Sodium (136-145) mmol/L Potassium (3.5-5.1) mmol/L Chloride (98-107) mmol/L Carbon Dioxide (21-32) mmol/L Anion Gap (3-11) BUN (6-23) mg/dl Creatinine (0.6-1.2) mg/dl Est Cr Clr Drug Dosing ml/min Est GFR ( Amer) ml/min Est GFR (Non-Af Amer) ml/min BUN/Creatinine Ratio (10-20) Glucose (70-99(Fasting)) mg/dl POC Glucose (70-99) mg/dl Lactate (0.4-2.0) mmol/L Calcium (8.5-10.1) mg/dl Magnesium (1.7-2.4) mg/dl Total Bilirubin (0.2-1.0) mg/dl AST (13-39) U/L ALT (7-52) U/L Alkaline Phosphatase (34-104) U/L Troponin I High Sens 54.9 H* (0-14) pg/ml Total Protein (6.0-8.3) gm/dl Albumin (3.4-5.0) gm/dl Globulin (2.5-4.0) gm/dl Albumin/Globulin Ratio (0.9-2) Urine Color Urine Appearance (Clear) Urine pH (4.5-7.5) Ur Specific [place] (1.000-1.030) Urine Protein (Negative) Urine Glucose (UA) (Negative) Urine Ketones (Negative) Urine Blood (Negative) Urine Nitrite (Negative) Urine Bilirubin (Negative) Urine Urobilinogen (Negative) Ur Leukocyte Esterase (Negative) Urine WBC (Auto) (0-5) /hpf Urine RBC (Auto) (0-4) /hpf U Hyaline Cast (Auto) (0-5) /lpf U Epithel Cells (Auto) (0-5) /lpf Urine Bacteria (Auto) (Negative) SARS-CoV-2 (PCR) (Negative) Influenza Type A (PCR) (Neg) Influenza Type B (PCR) (Neg) RSV (RT-PCR) (Neg) Administered Medications Aspirin (Aspirin 81 Mg Ectab) 81 mg PO DAILY [facility] Stop: 04/04/22 10:14 Last Admin: 03/05/22 12:01 Dose: 81 mg Documented by: [id number] Buspirone HCl (Buspirone 15 Mg Tab) 15 mg PO BID [facility] Stop: 04/04/22 20:59 Last Admin: 03/05/22 20:05 Dose: 15 mg Documented by: [id number] Clopidogrel Bisulfate (Clopidogrel Bisulfate 75 Mg Tab) 75 mg PO DAILY [facility] Stop: 04/04/22 10:14 Last Admin: 03/05/22 12:01 Dose: 75 mg Documented by: [id number] Heparin Sodium/Dextrose (Heparin Sodium/Dextrose) 25,000 units in 500 mls @ 19 mls/hr IV .Q24H [facility]; Protocol Stop: 04/04/22 11:14 Last Titration: 03/05/22 19:20 Dose: 950 units/hr, 19 mls/hr Documented by: [id number] Cosigned by: [id number] Titration: 03/05/22 18:52 Dose: 950 units/hr, 19 mls/hr Documented by: [id number] Cosigned by: [id number] Admin: 03/05/22 12:08 Dose: 750 units/hr, 15 mls/hr Documented by: [id number] Cosigned by: [id number] Insulin Aspart (Insulin Aspart Per Unit) 0 units SC ACHS [facility]; Protocol Stop: 04/04/22 09:18 Last Admin: 03/05/22 20:16 Dose: Not Given Documented by: [id number] Cosigned by: [id number] Admin: 03/05/22 17:31 Dose: 40 units Documented by: [id number] Cosigned by: [id number] Admin: 03/05/22 12:07 Dose: 103 units Documented by: [id number] Cosigned by: [id number] Admin: 03/05/22 11:28 Dose: Not Given Documented by: [id number] Insulin Human NPH (Insulin Human Nph) 0 units SC BIDM [facility]; Protocol Stop: 04/04/22 09:59 Last Admin: 03/05/22 17:30 Dose: 100 units Documented by: [id number] Cosigned by: [id number] Admin: 03/05/22 12:08 Dose: 100 units Documented by: [id number] Cosigned by: [id number] Lactic Acid (Ammonium Lactate 12% Lotion 225 Gm Btl) 1 gm EXT BID [facility] Stop: 04/04/22 20:59 Last Admin: 03/05/22 20:05 Dose: 1 gm Documented by: [id number] Levothyroxine Sodium (Levothyroxine Sodium 75 Mcg Tablet) 75 mcg PO DAILYBB [facility] Stop: 04/04/22 10:14 Last Admin: 03/05/22 12:02 Dose: 75 mcg Documented by: [id number] Meclizine HCl (Meclizine Hcl 25 Mg Tab) 50 mg PO BID [facility] Stop: 04/04/22 20:59 Last Admin: 03/05/22 20:06 Dose: 50 mg Documented by: [id number] Melatonin (Melatonin 3 Mg Tab) 15 mg PO HS [facility] Stop: 04/04/22 20:59 Last Admin: 03/05/22 20:03 Dose: 15 mg Documented by: [id number] Metoprolol Tartrate (Metoprolol Tartrate 50 Mg Tab) 50 mg PO BID [facility] Stop: 04/04/22 10:14 Last Admin: 03/05/22 20:06 Dose: 50 mg Documented by: [id number] Admin: 03/05/22 12:02 Dose: 50 mg Documented by: [id number] Miscellaneous (Vraylar 3mg: Order Awaiting Action) 1 ea N/A QS [facility] Stop: 04/04/22 15:59 Last Admin: 03/05/22 16:23 Dose: Not Given Documented by: [id number] Nystatin (Nystatin Powder 15gm Btl) 1 appln EXT TID [facility] Stop: 04/04/22 13:59 Last Admin: 03/05/22 20:15 Dose: 1 appln Documented by: [id number] Admin: 03/05/22 14:47 Dose: 1 appln Documented by: [id number] Pregabalin (Pregabalin 75 Mg Cap) 75 mg PO BID [facility] Stop: 04/04/22 20:59 Last Admin: 03/05/22 20:03 Dose: 75 mg Documented by: [id number] Spironolactone (Spironolactone 25 Mg Tab) 25 mg PO QAM [facility] Stop: 04/04/22 10:29 Last Admin: 03/05/22 12:01 Dose: 25 mg Documented by: [id number] Torsemide (Torsemide 20 Mg Tab) 20 mg PO QAM [facility] Stop: 04/04/22 10:29 Last Admin: 03/05/22 12:01 Dose: 20 mg Documented by: [id number] Valsartan (Valsartan 80 Mg Tab) 20 mg PO DAILY [facility] Stop: 04/04/22 10:14 Last Admin: 03/05/22 12:01 Dose: 20 mg Documented by: [id number] Discontinued Medications Colchicine (Colchicine 0.6 Mg Tab) 0.6 mg PO NOW ONE Stop: 03/05/22 14:44 Last Admin: 03/05/22 16:32 Dose: 0.6 mg Documented by: [id number] Heparin Sodium (Porcine) (Heparin Sod (Porcine) 1000 Unit/Ml) 1 units IV NOW ONE Stop: 03/05/22 05:43 Last Admin: 03/05/22 06:10 Dose: 1 units Documented by: [id number] Cosigned by: [id number] Heparin Sodium (Porcine) (Heparin Sod (Porcine) 1000 Unit/Ml) 5,000 units IV NOW ONE Stop: 03/05/22 06:16 Last Admin: 03/05/22 06:37 Dose: 5,000 units Documented by: [id number] Cosigned by: [id number] Heparin Sodium/Dextrose (Heparin Iv Adult Wt-Based Standard With Bolus Protocol) 1 ea IV NOW STA; Protocol Stop: 03/05/22 05:27 Last Admin: 03/05/22 06:10 Dose: 1 ea Documented by: [id number] Sodium Chloride (Nss 1000ml) 1,000 mls @ 999 mls/hr IV .Q1H1M [facility] Stop: 03/05/22 03:15 Last Infusion: 03/05/22 08:00 Dose: 0 mls/hr Documented by: [id number] Admin: 03/05/22 02:18 Dose: 999 mls/hr Documented by: [id number] Ceftriaxone Sodium (Rocephin) 2,000 mg in 70 mls @ 140 mls/hr IV NOW STA Stop: 03/05/22 05:55 Last Infusion: 03/05/22 06:40 Dose: 0 mls/hr Documented by: [id number] Admin: 03/05/22 06:10 Dose: 140 mls/hr Documented by: [id number] Heparin Sodium/Dextrose (Heparin Sodium/Dextrose) 25,000 units in 500 mls @ 22 mls/hr IV .[id number] EVGENY; Protocol Stop: 04/04/22 05:44 Last Titration: 03/05/22 12:08 Dose: 0 units/hr, 0 mls/hr Documented by: [id number] Cosigned by: [id number] Admin: 03/05/22 06:10 Dose: 1,100 units/hr, 22 mls/hr Documented by: [id number] Cosigned by: [id number] Heparin Sodium (Porcine) 4,000 (units/ Syringe) 4 mls @ 10 mls/min IV 1900 ONE Stop: 03/05/22 19:01 Last Admin: 03/05/22 19:06 Dose: 10 mls/min Documented by: [id number] Cosigned by: [id number] Insulin Aspart (Insulin Aspart Per Unit) 0 units SC 1430 ONE; Protocol Stop: 03/05/22 14:31 Last Admin: 03/05/22 14:47 Dose: 32 units Documented by: [id number] Cosigned by: [id number] Insulin Human Regular (Novolin-R Insulin Per Unit Charge) 10 units IV NOW STA Stop: 03/05/22 02:51 Last Admin: 03/05/22 03:23 Dose: 10 units Documented by: [id number] Cosigned by: [id number] Ioversol (Optiray 320 125ml) 120 ml IV ONCE ONE Stop: 03/05/22 04:08 Last Admin: 03/05/22 03:55 Dose: 120 ml Documented by: [id number] Imaging Data My Impression: Per statrad: Preliminary Findings Only See Final Report For Complete Findings CT HEAD: No evidence of acute intracranial pathology. Right lens replacement. Comparison made to prior CT from May 03, 2019. CT CHEST With Contrast: There is a small pulmonary embolus in the left lower lobe subsegmental pulmonary artery (series 4 image 43 and 44). No evidence of right heart strain. There is an aortic valve stent in place. Cardiomegaly. Ectasia of the descending duodenum measuring 35 mm in diameter. Status post median sternotomy. Left breast implant. No comparisons. CT ABDOMEN & PELVIS With Contrast: Liver is unremarkable. The gallbladder is decompressed. Left hepatic cyst. The common bile duct is normal. Advanced atrophy of the pancreas. No evidence of hydronephrosis or urinary calculi. Bilateral renal cysts. No evidence of appendicitis. Status post hysterectomy. There is subcutaneous fat stranding along the anterior abdominal wall, which is nonspecific. Status post anterior abdominal hernia repair. Comparison is made to prior CT scan of the abdomen and pelvis from May 03, 2019 Radiologist: Nury Lechuga MD Radiologist's Impression: Chest X-Ray 03/05/22 02:06 XR chest 1V portable CLINICAL HISTORY: SEPSIS. COMPARISON STUDY: 11/02/2021 TECHNIQUE: 1 view of the chest FINDINGS: Single frontal view of the chest demonstrates the heart size to be enlarged status post previous cardiothoracic surgery. The lungs are clear of alveolar opacities. There is no evidence for pleural effusion. There is no evidence for vascular congestion. There is no acute osseous pathology. The patient is also again status post previous breast surgery. IMPRESSION: 1. No acute cardiopulmonary disease. ACT 112: Negative or not required by law. Electronically signed by: Reza Aguilar M.D. 03/05/2022 9:03 AM Abdomen/Pelvis CT 03/05/22 03:25 CT abd pelvis IV con only CLINICAL HISTORY: R flank and lower abd pain COMPARISON STUDY: 05/03/2019 CT DOSE: TECHNIQUE: Standard CT of the Abdomen and Pelvis was performed with IV contrast. A dose lowering technique was utilized adhering to the principles of ALARA. Contrast Volume: Optiray 320, 120 ml. The patient did not receive oral contrast. FINDINGS: Abdominal cavity: There is no evidence for abdominal mass, adenopathy or ascites. Liver: There is homogeneous attenuation of the liver parenchyma. There is no evidence for enhancing mass lesion. There is again hepatomegaly with a sharply defined cyst of the left lobe of the liver. Spleen: There is homogeneous attenuation of the splenic parenchyma. There is no enhancing mass lesion. There is again splenomegaly. Pancreas: There is homogeneous attenuation of the pancreatic parenchyma. There is no evidence for mass lesion or peripancreatic fluid collection. Gall Bladder: The gallbladder is contracted. Adrenal glands: The adrenal glands are normal in size and attenuation. There is no evidence for enhancing mass lesion. Kidneys: There is homogeneous attenuation of the renal parenchyma bilaterally. There is a 2 mm nonobstructing right renal calculus. There is no evidence for left renal calculus or hydronephrosis bilaterally. Sharply defined simple renal cysts are again seen. There is no evidence for enhancing mass. Bowel: There is again diastases of the anterior abdominal wall muscles with a large panniculus present involving the lower pelvic wall. The bowel loops are normally placed within the abdomen and pelvis without evidence for dilatation or obstruction. There is no evidence for mass lesion. There are no inflammatory changes present. There is no evidence for free air. Bladder: The bladder is within normal limits with no evidence for focal mass, calculus or diverticulum. There is present within the bladder which is most likely related to previous instrumentation. : There is no evidence for pelvic mass or adenopathy. There is no evidence for pelvic ascites. Vasculature: There is no evidence for aneurysmal dilatation of the abdominal aorta. Atherosclerotic calcification is present. Osseous structures: There is no acute osseous pathology. Degenerative changes are present within the spine. IMPRESSION: 1. No acute intra-abdominal or pelvic abnormality. 2. 2 mm nonobstructing right renal calculus. 3. There is again diastases of the anterior abdominal wall muscles with large panniculus present anteriorly. No bowel loop dilatation or obstruction. 4. There is again hepatosplenomegaly. 5. Renal cysts. 6. Additional nonacute findings are delineated above. ACT 112: Negative or not required by law. Electronically signed by: Reza Aguilar M.D. 03/05/2022 2:08 PM Chest CTA 03/05/22 03:25 CT angio chest PE protocol CLINICAL HISTORY: Chest pain COMPARISON STUDY: Portable chest from 03/05/2022 and previous CTA chest from 07/18/2017 CT DOSE: TECHNIQUE: CT Angio of the chest was performed.followed by image post processing with coronal, and sagittal MIP reformats. Contrast Volume: Optiray 320, 120 ml FINDINGS: Vasculature: There is homogeneous perfusion of the pulmonary vasculature bilater ally. No intraluminal filling defects or evidence for pulmonary embolus is seen. Airway: The airway is clear. No endobronchial lesion is identified. Lungs: The lungs are clear of acute alveolar opacities, air bronchograms or pulmonary nodules. Pleura: There is no evidence for pleural effusion. There is no evidence for pneumothorax. Mediastinum: There is no evidence for pathologic adenopathy. The heart size is enlarged. The patient is status post aortic valve replacement. The thoracic aorta is within normal limits. There is no evidence for pericardial effusion. Osseous structures: There is no acute osseous pathology. Soft tissues: The patient is again status post left breast augmentation. Impression: 1. No CTA evidence for pulmonary embolus. 2. No acute chest disease. 3. Cardiomegaly status post aortic valve replacement. ACT 112: Negative or not required by law. Electronically signed by: Reza Aguilar M.D. 03/05/2022 10:[address] 03/05/22 03:25 CT head/brain wo con CLINICAL HISTORY: confusion COMPARISON STUDY: 05/03/2019 CT DOSE: 2267.72 mGy.cm TECHNIQUE: Standard CT of the Brain was performed without IV contrast. A dose lowering technique was utilized adhering to the principles of ALARA. FINDINGS: Extraaxial space: There is no evidence for subdural hematoma. There are no extra-axial fluid collections. Ventricles and cisterns: The ventricles are mildly dilated bilaterally. There is no evidence for midline shift or mass effect. Parenchyma: There is no subarachnoid or intraparenchymal hemorrhage. There is no evidence for an acute infarct or cerebral edema. There is mild cerebral cortical atrophy and decreased attenuation in the periventricular white matter represe nting remote small vessel disease. There are no gross mass lesions. Osseous structures: There is no evidence for an acute fracture. The visualized paranasal sinuses are clear. The mastoid air cells are clear bilaterally. Soft tissues: There is no evidence for focal soft tissue swelling. IMPRESSION: 1. No acute intracerebral pathology. 2. Mild cerebral cortical atrophy and remote small vessel disease. ACT 112: Negative or not required by law. Electronically signed by: Reza Aguilar M.D. 03/05/2022 9:23 AM Discharge Plan Visit Data Chief Complaint: Flu Like Symptoms Stated Complaint: SORE THOAT,BACK PAIN,FLU SYMP ED Provider: Erna Castro ED Midlevel Provider: Mariann Wang Discharge Problem: UTI (urinary tract infection), Altered mental status, Pulmonary embolism Patient Disposition: Admitted As Inpatient Discharge Instructions Interventions: ED Discharge Assessment Last Done: 03/05/22 08:25
--- NOTE | 2022-03-05 09:04 | XRay Report ---
XR chest 1V portable CLINICAL HISTORY: SEPSIS. COMPARISON STUDY: 11/02/2021 TECHNIQUE: 1 view of the chest FINDINGS: Single frontal view of the chest demonstrates the heart size to be enlarged status post previous card iothoracic surgery. The lungs are clear of alveolar opacities. There is no evidence for pleural effus ion. There is no evidence for vascular congestion. There is no acute osseous pathology. The patient i s also again status post previous breast surgery. IMPRESSION: 1. No acute cardiopulmonary disease. ACT 112: Negative or not required by law. Electronically signed by: Reza Aguilar M.D. 03/05/2022 9:03 AM
[2022-03-05] MEDS ORDERED: PHARMACY GLYCEMIC MGMT CONSULT PRN (09:19)
[2022-03-05] MEDS ORDERED: ONDANSETRON INJ 2 MG/ML 2 ML VIAL IV PRN (09:19)
[2022-03-05] MEDS ORDERED: ACETAMINOPHEN 325 MG TAB PO PRN (09:19)
[2022-03-05] MEDS ORDERED: POLYETHYLENE (MIRALAX) 17 GM PACK PO PRN (09:19)
[2022-03-05] MEDS ORDERED: NITROGLYCERIN SL 0.4 MG/TAB TAB SL PRN (09:19)
--- NOTE | 2022-03-05 09:25 | CT Scan Report ---
CT head/brain wo con CLINICAL HISTORY: confusion COMPARISON STUDY: 05/03/2019 CT DOSE: 2267.72 mGy.cm TECHNIQUE: Standard CT of the Brain was performed without IV contrast. A dose lowering technique was utilized adhering to the principles of ALARA. FINDINGS: Extraaxial space: There is no evidence for subdural hematoma. There are no extra-axial fluid collecti ons. Ventricles and cisterns: The ventricles are mildly dilated bilaterally. There is no evidence for midl ine shift or mass effect. Parenchyma: There is no subarachnoid or intraparenchymal hemorrhage. There is no evidence for an acut e infarct or cerebral edema. There is mild cerebral cortical atrophy and decreased attenuation in the periventricular white matter representing remote small vessel disease. There are no gross mass lesio ns. Osseous structures: There is no evidence for an acute fracture. The visualized paranasal sinuses are clear. The mastoid air cells are clear bilaterally. Soft tissues: There is no evidence for focal soft tissue swelling. IMPRESSION: 1. No acute intracerebral pathology. 2. Mild cerebral cortical atrophy and remote small vessel disease. ACT 112: Negative or not required by law. Electronically signed by: Reza Aguilar M.D. 03/05/2022 9:23 AM
[2022-03-05] MEDS ORDERED: PNEUMOCOCCAL POLYSACCHARIDES 25 MCG/0.5 ML VIAL/SYR IM ONE (09:32)
[2022-03-05] MEDS ORDERED: GLUCOSE 40% GEL 15 GM TUBE PO PRN (10:00)
[2022-03-05] MEDS ORDERED: DEXTROSE 50% 50 ML SYRINGE IV PRN (10:00)
[2022-03-05] MEDS ORDERED: CARBOHYDRATES FOR HYPOGLYCEMIA PO PRN (10:00)
[2022-03-05] MEDS ORDERED: GLUCOSE 10 TABS/TUBE PO PRN (10:00)
[2022-03-05] MEDS ORDERED: GLUCAGON FOR INJ 1 MG VIAL IM PRN (10:00)
--- NOTE | 2022-03-05 10:02 | Pharmacy Report ---
Pharmacy Glycemic Short Note 2 - Date of Service March 05, 2022 - Glycemic Short BSG Results (Last 24 hours): 03/05/22 03/05/22 03/05/22 01:59 02:16 07:50 Glucose 460 H* POC Glucose 431 H* 320 H* 03/05/22 03/05/22 09:20 09:21 Glucose POC Glucose 343 H* 337 H* OUTPATIENT ANTIDIABETIC REGIMEN: * U-500, 300 Units TID with meals (confirmed with patient) * 8.1% 11/03/2019 - updated A1c ordered ASSESSMENT: * 61 year old female admitted with flu like symptoms, possible UTI, started on IV ceftriaxone, IV heparin drip. * Patient known to glycemic service from 2019, and had hypoglycemia when on U500 as inpatient. * Begin using NPH and NovoLog while inpatient like previous admission, so that insulin is more titratable, and consider switching to U500 if euglycemia is not achieved after 24 hours. * Patient received 10 units IV insulin in ER for BSG 431 at 0300. * BSG 416mg/dl when consult received, gave 103 units SQ Novolog at 1200- recheck 2 hours after = 278mg/dl - gave another 32 units correctional insulin. PLAN FOR INPATIENT GLYCEMIC CONTROL: * Basal insulin * NPH 100 units now then scale BID with meals starting at dinner (100 units BSG 140 or less, 120 units BSG > 140) * Bolus insulin * NovoLog per scale ACHS or Q6hrs while NPO * Goal Range: Low 120 mg/dL - High 150 mg/dL * Correction Factor: 4 mg/dL/unit * Nutritional / Prandial insulin per carb ratio of 1 unit per 1 grams CHO consumed
[2022-03-05] MEDS ORDERED: CYCLOBENZAPRINE HCL 10 MG TAB PO PRN (10:11)
--- NOTE | 2022-03-05 10:47 | CT Scan Report ---
CT angio chest PE protocol CLINICAL HISTORY: Chest pain COMPARISON STUDY: Portable chest from 03/05/2022 and previous CTA chest from 07/18/2017 CT DOSE: TECHNIQUE: CT Angio of the chest was performed.followed by image post processing with coronal, and s agittal MIP reformats. Contrast Volume: Optiray 320, 120 ml FINDINGS: Vasculature: There is homogeneous perfusion of the pulmonary vasculature bilaterally. No intraluminal filling defects or evidence for pulmonary embolus is seen. Airway: The airway is clear. No endobronchial lesion is identified. Lungs: The lungs are clear of acute alveolar opacities, air bronchograms or pulmonary nodules. Pleura: There is no evidence for pleural effusion. There is no evidence for pneumothorax. Mediastinum: There is no evidence for pathologic adenopathy. The heart size is enlarged. The patient is status post aortic valve replacement. The thoracic aorta is within normal limits. There is no evid ence for pericardial effusion. Osseous structures: There is no acute osseous pathology. Soft tissues: The patient is again status post left breast augmentation. Impression: 1. No CTA evidence for pulmonary embolus. 2. No acute chest disease. 3. Cardiomegaly status post aortic valve replacement. ACT 112: Negative or not required by law. Electronically signed by: Reza Aguilar M.D. 03/05/2022 10:45 AM
[2022-03-05] MEDS ORDERED: Heparin IV Adult Wt-Based Low-Dose *NO* Bolus Protocol IV SCH (11:09)
[2022-03-05] MEDS: INSULIN ASPART PER UNIT SC SCH ×4 (11:28→20:16)
--- NOTE | 2022-03-05 11:53 | Ultrasound Report ---
US venous doppler LE BI CLINICAL HISTORY: Bilateral leg pain COMPARISON: None available at the time of this dictation. TECHNIQUE: Bilateral lower extremity real-time compression venous ultrasound with Color Doppler imagi ng. Utilizing real-time ultrasonic imaging multiple real time high-resolution ultrasonic images with comp ression and noncompression maneuvers of the deep venous system in addition to color doppler imaging w ere performed from the common femoral vein through the proximal calf veins. FINDINGS: Currently there is normal compressibility of the deep venous system from the common femoral vein thro ugh the proximal calf veins. No current evidence of acute thrombosis is identified. Impression: No evidence of deep venous thrombus. ACT 112: Negative or not required by law. Electronically signed by: Reza Aguilar M.D. 03/05/2022 11:52 AM
[2022-03-05] MEDS: TORSEMIDE 20 MG TAB PO SCH (12:01)
[2022-03-05] MEDS: VALSARTAN 80 MG TAB PO SCH (12:01)
[2022-03-05] MEDS: SPIRONOLACTONE 25 MG TAB PO SCH (12:01)
[2022-03-05] MEDS: CLOPIDOGREL BISULFATE 75 MG TAB PO SCH (12:01)
[2022-03-05] MEDS: ASPIRIN 81 MG ECTAB PO SCH (12:01)
[2022-03-05] MEDS: METOPROLOL TARTRATE 50 MG TAB PO SCH ×2 (12:02→20:06)
[2022-03-05] MEDS: LEVOTHYROXINE SODIUM 75 MCG TABLET PO SCH (12:02)
[2022-03-05] MEDS: INSULIN HUMAN NPH SC SCH ×2 (12:08→17:30)
[2022-03-05] MEDS: HEPARIN SODIUM/DEXTROSE 25,000 UNITS/500 ML BAG IV SCH (12:08)
--- NOTE | 2022-03-05 12:27 | Electrocardiogram Report ---
Test Reason : Blood Pressure : / mmHG Vent. Rate : 109 BPM Atrial Rate : 109 BPM P-R Int : 174 ms QRS Dur : 088 ms QT Int : 354 ms P-R-T Axes : 088 -34 099 degrees QTc Int : 476 ms Poor data quality, interpretation may be adversely affected Sinus tachycardia Left axis deviation Poor R wave progression, consider anterior SD vs. lead placement vs. LVH Nonspecific ST and T wave abnormality Abnormal ECG When compared with ECG of 04-MAY-2019 06:32, No significant change was found Confirmed by Lauro Parada ([id number]) on 03/05/2022 12:26:59 PM Referred By: REFERRED SELF Confirmed By:Jama Parada
--- NOTE | 2022-03-05 12:36 | History and Physical Report ---
DATE OF ADMISSION: 03/05/2022. CHIEF COMPLAINT: Chest pain, flu-like symptoms, UTI. HISTORY OF PRESENT ILLNESS: This is a 61-year-old female with a past medical history significant for type 2 diabetes, hyperlipidemia, hypothyroidism, obstructive sleep apnea on CPAP, diastolic CHF, history of aortic stenosis status post TAVR, hypertension, history of CAD s/p HOMER, LEYVA, chronic kidney disease stage III, history of cystitis, history of colon cancer, history of breast cancer, history of bilateral mastectomy, history of social anxiety disorder, history of medical marijuana use, history of schizoaffective disorder bipolar type. The patient says she lives alone at home, was having chest discomfort, abdominal pain that is why she called her son who drove her here in the hospital. Also, she recently had UTI but did not take her medications. The chest pain is resolved now. She has some abdominal discomfort. Has some dizziness earlier. No headache. Had some blurred visions, some runny nose, some sore throat, no cough. Denies any fevers. Was nauseous. No diarrhea or constipation. Has some burning micturition. She states she ambulates with a walker okay, eating okay. Patient is somewhat slow to answer. ALLERGIES: LISINOPRIL, PENICILLIN, ADHESIVE TAPE, MONOSODIUM GLUTAMATE. PAST MEDICAL HISTORY: As mentioned above. PAST SURGICAL HISTORY: Carpal tunnel surgery, , colonoscopy, EGDs, excision of breast lesion, hysteroscopy with biopsy with polypectomy, implantation of incisional hernia, injection of eye drug, partial colectomy, appendectomy, removal of the salpingo-oophorectomy, TAVR, total abdominal hysterectomy with removal of tubes, partial simple mastectomy. MEDICATIONS: The patient is on buspirone 15 mg p.o. b.i.d., Pregabalin 75 mg p.o. b.i.d., metoprolol tartrate 100 mg p.o. in the morning and 50 mg p.o. at bedtime, Plavix 75 mg p.o. daily, trazodone 100 mg p.o. at bedtime p.r.n., oxybutynin 5 mg p.o. at bedtime, spironolactone 25 mg p.o. daily, Vraylar 3 mg p.o. daily, atorvastatin 40 mg p.o. daily, levothyroxine 75 mcg p.o. daily, meclizine 50 mg p.o. b.i.d., lovastatin 40 mg p.o., valsartan 20 mg p.o. daily, metformin 850 mg p.o. b.i.d., torsemide 20 mg p.o. daily, Colace 100 mg p.o. b.i.d., Tylenol p.r.n., B complex 1 tablet daily, aspirin 81 mg p.o. daily, [place] 3 fish oil 1 capsule daily. FAMILY HISTORY: Significant for aunt has diabetes; brother has CABG, HIV; father has heart disorder; mother has heart disorder. Son has heart disorder. SOCIAL HISTORY: , lives alone. No smoking, no alcohol, no drug use. REVIEW OF SYSTEMS: As per HPI. Rest of the review of systems is negative. PHYSICAL EXAMINATION: GENERAL: The patient is obese, not in acute distress. She is somewhat slow to answer. VITAL SIGNS: Temperature 37.5, pulse 97, respiratory rate 19, blood pressure 169/72, oxygen 93% on 2 liters. HEENT: Pupils equal, round and reactive to light. Oral mucosa moist. NECK: No JVD. No neck masses. CARDIOVASCULAR: S1 and S2 heard. Regular rate and rhythm. No murmur, no gallop. RESPIRATORY SYSTEM: Normal AP diameter. No accessory muscle use. No wheezing, no crackles. ABDOMEN: Soft. Bowel sounds are present. Mild abdominal discomfort. No guarding or rigidity. CENTRAL NERVOUS SYSTEM: Cranial nerves II-XII grossly intact. Power 5/5 in all extremities. No pronator drift and coordination of movements normal. EXTREMITIES: Mild pedal edema, no erythema seen. LABORATORY: WBC 8.6, hemoglobin 13.8, hematocrit 40.1, platelets 129. PT 10.9, INR 1, APTT 24.1. Venous blood gas, pH of 7.4, pCO2 of 40, bicarbonate 28. Sodium 132, potassium 3.5, chloride 94, bicarbonate 27, BUN 19, creatinine 0.9, serum glucose 460. Lactate 2.5, calcium 9.5, magnesium 1.6, total bilirubin 1.1, AST 12, ALT 22, alkaline phosphatase 110. Troponin I high sensitivity 54. Urinalysis, +1 leukocyte esterase, +4 bacteria. SARS-CoV-2 PCR negative. Influenza A and B PCR negative. RSV PCR negative. IMAGING: CT of the head, preliminary report, no acute findings. Chest x-ray preliminary report no acute findings. ASSESSMENT AND PLAN: A 61-year-old female presents with chest pain, abdominal pain, and urinary tract infection found to have pulmonary embolism. 1. Chest pain, mild elevation of troponin. Follow the EKG. Currently, chest pain resolved. CT scan shows pulmonary embolism. Follow the final report. ER started empirically on heparin, which will be continued. Follow serial cardiac enzymes, echocardiogram. If any concern, consult Cardiology. Closely monitor in the med tele. 2. Abdominal pain and urinary tract infection. Follow the CAT scan of abdomen results. Empirically start on Rocephin. Follow the cultures. 3. Diabetes, does not seem to be on any medication at home. Sugars are running in 400s. Received IV insulin in the ER. We will place her on insulin sliding scale. Consult Pharmacy and follow HbA1c levels. Closely monitor the blood sugars. 4. History of aortic stenosis status post TAVR. 5. Chronic kidney disease stage III, presents with creatinine of 0.9. We will follow the labs. 6. Elevated lactic acid. 2.5 Follow the repeat levels. 7. Hypomagnesemia. We will replace. 8. Obstructive sleep apnea on CPAP at bedtime. 9. History of coronary artery disease, status post stent. Continue home medications. 10. Hypertension. Continue home medications. 11. Thrombocytopenia, most likely secondary to nonalcoholic steatohepatitis. We will follow the labs. 12. Hypothyroidism. Continue Synthroid. 13. Depression with anxiety. Schizoaffective disorder bipolar type. Continue home medications. 14. Deep venous thrombosis prophylaxis, currently on IV heparin. DISPOSITION: Closely monitor in the [employer] tele. PT/OT prior to discharge. Social Service to help with discharge planning. Job ID: [id number] [facility]
--- NOTE | 2022-03-05 13:40 | Cardiology Consultation ---
Date of Consultation March 05, 2022 Assessment & Plan (1) S/P TAVR (transcatheter aortic valve replacement): (2) IDDM (insulin dependent diabetes mellitus): (3) Presence of stent in coronary artery: (4) Pleuritic chest pain: (5) CKD (chronic kidney disease) stage 3, GFR 30-59 ml/min: I believe the patient's chest pain is more pleuritic than due to cardiac ischemia. She has had a negative CT for pulmonary emboli and her lower extremity Dopplers are negative for DVT. I would consider starting her on colchicine to see if she has any improvement in her chest pain. Unfortunately, due to her previous history of breast cancer and treatments the echocardiogram provided poor acoustic windows and therefore a pericardial effusion that might be suggestive of pericarditis cannot be excluded. I would continue the IV heparin for now until we see how she responds to the colchicine. History of Present Illness Attending Physician: Padmini Crabtree MD History of Present Illness This is a 61-year-old female with a history of a schizoaffective disorder who has a complex cardiac history as outlined below. She received a bioprosthetic aortic valve in 2010 for aortic stenosis and then in 2018 due to prosthetic valve stenosis she underwent a VALENCIA. At the time of the VALENCIA she had stenting of her left main trunk. She also has a history of breast carcinoma and underwent x-ray therapy and chemotherapy. She is not a great historian and therefore the information is taken mostly from the medical record. The patient was in her usual state of health until a few weeks ago she started with a nonproductive cough. The cough is worse at night when she is laying down. Due to the coughing she has developed chest pain which is pleuritic in nature. The pain increases with deep inspiration. The cough has been nonproductive and she denies hemoptysis. She has had no lower extremity edema. Echocardiogram is difficult to assess due to her previous history of breast cancer. High- sensitivity troponins are borderline elevated. EKG shows no acute changes. Past Medical History: 1. Hypertension 2. Type 2 diabetes mellitus 3. Dyslipidemia 4. Aortic valve stenosis status post 25 mm bioprosthetic aortic valve replacement 2010, and 2018 TAVR due to prostetic valve stenosis. At time of TAVR, had coronary stent placed LMT. 5. Hypothyroidism 6. Breast carcinoma for which she underwent x-ray therapy, and chemotherapy 7. Colon cancer 8. Obstructive sleep apnea on CPAP 9. Obesity, body mass index greater than 40 Past Surgical History: 1. Status post bioprosthetic aortic valve replacement 2. Partial colectomy for stage I colon cancer 3. Bilateral mastectomies 4. Removal of right breast implant in 2009 due to infection, and this was not replaced 5. Hysteroscopy with biopsy 6. Transesophageal echocardiogram April, Allergies Allergy/AdvReac Type Severity Reaction Status Date / Time lisinopril Allergy Unknown unk Verified 07/03/18 07:56 Penicillins Allergy Unknown . Verified 07/03/18 07:56 adhesive tape Allergy CAN NOT Verified 05/02/19 17:36 TOLERATE BANDAIDS monosodium glutamate Allergy EDEMA OF Verified 05/02/19 17:36 HANDS & FEET Home Medications Medication Instructions Recorded Confirmed Type ammonium lactate 12 % lotion 1 applic TOPICAL BID 05/02/19 05/02/19 History aspirin 81 mg tablet,delayed 81 mg PO DAILY 05/02/19 05/02/19 History release (Aspir-) atorvastatin 40 mg tablet (Lipitor) 40 mg PO DAILY 05/02/19 05/02/19 History buspirone 15 mg tablet 15 mg PO BID 05/02/19 05/02/19 History clopidogrel 75 mg tablet (Plavix) 75 mg PO DAILY 05/02/19 05/02/19 History cyclobenzaprine 10 mg tablet 10 mg PO HS PRN 05/02/19 05/02/19 History docusate sodium 100 mg capsule 100 mg PO DAILY 05/02/19 05/02/19 History (Colace) levothyroxine 75 mcg tablet 75 mcg PO DAILY 05/02/19 05/02/19 History meclizine 25 mg tablet 50 mg PO BID 05/02/19 05/02/19 History melatonin 3 mg tablet 15 mg PO HS 05/02/19 05/02/19 History metoprolol tartrate 100 mg tablet 50 mg PO BID 05/02/19 05/02/19 History (Lopressor) multivitamin 1 tab PO DAILY 05/02/19 05/02/19 History nystatin 100,000 unit/gram topical 1 applic TOPICAL TID 05/02/19 05/02/19 History powder (Nyamyc) omega 1-mlj-cbt-fish oil 1,000 mg 1 cap PO DAILY 05/02/19 05/02/19 History (120 mg-180 mg) capsule (Fish Oil) pregabalin 75 mg capsule (Lyrica) 75 mg PO BID 05/02/19 05/02/19 History torsemide 10 mg tablet 20 mg PO DAILY 05/02/19 05/02/19 History valsartan 40 mg tablet (Diovan) 20 mg PO DAILY 05/02/19 05/02/19 History vitamin B complex 1 tab PO DAILY 05/02/19 05/02/19 History spironolactone 25 mg tablet 25 mg PO DAILY 05/05/19 05/05/19 History cariprazine 3 mg capsule (Vraylar) 3 mg PO DAILY 03/05/22 03/05/22 History Patient History Medical History (Updated 03/05/22 @ 14:36 by Feng Lantigua DO) Anxiety Aortic valvar stenosis Aortic valve stenosis Breast cancer Breast cancer, right breast 2007--Sx, chemo/radiation CAD (coronary artery disease) Cardiac murmur Follows with Dr. Muniz Cataract Cataract of both eyes Colon cancer Colon cancer 2004--sx, no chemo or radiation Depression Depression with anxiety Diabetes mellitus, type 2 Dyslipidemia Heart failure History of removal of breast implant "Left " HTN (hypertension) Hyperlipidemia Hypertension Hypothyroidism Hypothyroidism Liver cirrhosis non-alcoholic On anticoagulant therapy DANYELLE (obstructive sleep apnea) Sleep apnea Cpap Uterine cancer 2014--sx, no chemo/radiation Surgical History (Updated 03/05/22 @ 14:36 by Feng Lantigua DO) H/O aortic valve replacement #25 Manga aortic valve bioprosthesis placed in 2010, and 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 On 11/06/2017 she underwent transcatheter aortic valve replacement receiving a 26 mm Hernandez-Bing S3 prosthesis H/O [place] valve [place] [facility] [place]/O bilateral mastectomy 01/2008--breast cancer H/O breast biopsy right--malignant H/O breast surgery L implant infected and was removed H/O colonoscopy History of appendectomy History of appendectomy History of bilateral tubal ligation History of bowel resection [place] [facility] [place]/t Colon Cancer History of breast reconstruction Bilt breast after masectomy History of cardiac cath x2--2010 @ [facility] 07/2017 @ [facility]-no stent, follows with Dr. Muniz History of carpal tunnel release bilt History of carpal tunnel surgery of left wrist TAVR 2018 History of carpal tunnel surgery of right wrist History of section x4 History of colonoscopy History of dilatation and curettage History of esophagogastroduodenoscopy (EGD) History of hysterectomy with bilateral oophorectomy History of open heart surgery 2012 [place] [facility] [place] History of partial colectomy History of percutaneous coronary intervention prior to TAVR in order to protect her left main, she also had a 3.5 x 23 millimeter drug-eluting stent placed in the left main/LAD, which was expanded out into the aorta. History of total abdominal hysterectomy and bilateral salpingo-oophorectomy 2014 D/T uterine cancer Previous section S/P foot surgery, right "foot was widening" S/P mastectomy, bilateral Family History Grandmother Family history of diabetes mellitus maternal Family/Other Family history of diabetes mellitus paternal aunt Father , of premature CAD Coronary heart disease Mother , of premature CAD Coronary heart disease Social History Smoking Status: Never smoker Second Hand Exposure: Yes (PARENTS SMOKE); Hx Alcohol Use: No Hx Substance Use: No Preferred Language: Ukrainian Communication Ability: Effective Sprayer Operator Required: No Beliefs That Will Affect Care: None marital status: Single marital status details: has fiance Current Living Situation: Alone Current Living Situation Comment: lives in appartment Feels Safe at Home: Yes Safety Concerns: Feels Safe At This Time Assistive Devices: Cane and Walker Review of Systems Review of Systems: Review of Systems: See HPI for pertinent positives. All other 10 point review of systems are negative. Physical Exam Physical Exam: General: no acute distress and stated age Head: normocephalic, no masses, lesions, tenderness or abnormalities Eyes: conjunctiva are pink and non-injected, sclera clear Neck: supple, no adenopathy, no bruits, normal jugular venous pulse, no hepatojugular reflux Chest: normal shape and normal respiratory effort Lungs: clear to auscultation and percussion Cardiac Exam: - regular rate & rhythm, no murmurs gallops or rubs - normal S1, normal S2 Pulses: 2(+) throughout Abdomen: abdomen soft, non-tender, no abnormal masses and no hepatosplenomegaly Musculoskeletal: no gait disturbance, no joint inflammation, no deforming arthritis Extremities: no edema and no cyanosis Neuro: grossly normal exam Results & Data ([facility]) Vital Signs (Past 12 Hours) Vital Signs Temp Pulse Pulse Resp BP BP BP 03/05/22 10:01 98 H 03/05/22 09:33 37.2 C 100 H 18 124/76 03/05/22 07:05 03/05/22 07:00 97 H 19 169/72 H 03/05/22 05:00 97 H 17 03/05/22 04:45 101 H 10 L 03/05/22 04:30 102 H 13 03/05/22 04:15 105 H 12 03/05/22 03:31 100 H 20 03/05/22 03:30 105 H 23 03/05/22 03:15 108 H 14 157/61 H 03/05/22 03:00 107 H 32 H 155/82 H Pulse Ox 03/05/22 10:01 03/05/22 09:33 94 03/05/22 07:05 93 03/05/22 07:00 88 L 03/05/22 05:00 97 03/05/22 04:45 96 03/05/22 04:30 94 03/05/22 04:15 94 03/05/22 03:31 03/05/22 03:30 03/05/22 03:15 03/05/22 03:00 92 Laboratory Results Laboratory Results - last 24 hr 03/05/22 03/05/22 03/05/22 01:59 02:16 02:16 WBC 8.68 RBC 5.02 Hgb 13.8 Hct 40.1 MCV 79.9 L MCH 27.5 MCHC 34.4 RDW Std Deviation 43.3 RDW Coeff of Valerio 15.0 H Plt Count 129 L MPV 11.5 H Immature Gran % (Auto) 0.2 Neut % (Auto) 54.9 Lymph % (Auto) 35.5 [place] % (Auto) 8.4 Eos % (Auto) 0.8 Baso % (Auto) 0.2 Neut # (Auto) 4.76 Lymph # (Auto) 3.08 [place] # (Auto) 0.73 H Eos # (Auto) 0.07 Baso # (Auto) 0.02 Immature Gran # (Auto) 0.02 PT 10.9 INR 1.0 APTT 24.1 PTT Ratio 0.9 VBG pH VBG pCO2 VBG pO2 VBG HCO3 VBG O2 Saturation VBG Base Excess Barometric Pressure Sodium Potassium Chloride Carbon Dioxide Anion Gap BUN Creatinine Est Cr Clr Drug Dosing Est GFR ( Amer) Est GFR (Non-Af Amer) BUN/Creatinine Ratio Glucose POC Glucose 431 H* Lactate Calcium Magnesium Total Bilirubin AST ALT Alkaline Phosphatase Troponin I High Sens Total Protein Albumin Globulin Albumin/Globulin Ratio Urine Color Urine Appearance Urine pH Ur Specific [place] Urine Protein Urine Glucose (UA) Urine Ketones Urine Blood Urine Nitrite Urine Bilirubin Urine Urobilinogen Ur Leukocyte Esterase Urine WBC (Auto) Urine RBC (Auto) U Hyaline Cast (Auto) U Epithel Cells (Auto) Urine Bacteria (Auto) SARS-CoV-2 (PCR) Influenza Type A (PCR) Influenza Type B (PCR) RSV (RT-PCR) 03/05/22 03/05/22 03/05/22 02:16 02:16 02:16 WBC RBC Hgb Hct MCV MCH MCHC RDW Std Deviation RDW Coeff of Valerio Plt Count MPV Immature Gran % (Auto) Neut % (Auto) Lymph % (Auto) [place] % (Auto) Eos % (Auto) Baso % (Auto) Neut # (Auto) Lymph # (Auto) [place] # (Auto) Eos # (Auto) Baso # (Auto) Immature Gran # (Auto) PT INR APTT PTT Ratio VBG pH VBG pCO2 VBG pO2 VBG HCO3 VBG O2 Saturation VBG Base Excess Barometric Pressure Sodium 132 L Potassium 3.5 Chloride 94 L Carbon Dioxide 27 Anion Gap 11 BUN 19 Creatinine 0.99 Est Cr Clr Drug Dosing 54.7 Est GFR ( Amer) 70.3 Est GFR (Non-Af Amer) 60.6 BUN/Creatinine Ratio 19.2 Glucose 460 H* POC Glucose Lactate 2.3 H* Calcium 9.5 Magnesium 1.6 L Total Bilirubin 1.1 H AST 12 L ALT 12 Alkaline Phosphatase 79 Troponin I High Sens 56.4 H* Total Protein 7.1 Albumin 4.0 Globulin 3.1 Albumin/Globulin Ratio 1.3 Urine Color Urine Appearance Urine pH Ur Specific [place] Urine Protein Urine Glucose (UA) Urine Ketones Urine Blood Urine Nitrite Urine Bilirubin Urine Urobilinogen Ur Leukocyte Esterase Urine WBC (Auto) Urine RBC (Auto) U Hyaline Cast (Auto) U Epithel Cells (Auto) Urine Bacteria (Auto) SARS-CoV-2 (PCR) NEGATIVE Influenza Type A (PCR) Negative Influenza Type B (PCR) Negative RSV (RT-PCR) Negative 03/05/22 03/05/22 03/05/22 02:55 04:16 04:16 WBC RBC Hgb Hct MCV MCH MCHC RDW Std Deviation RDW Coeff of Valerio Plt Count MPV Immature Gran % (Auto) Neut % (Auto) Lymph % (Auto) [place] % (Auto) Eos % (Auto) Baso % (Auto) Neut # (Auto) Lymph # (Auto) [place] # (Auto) Eos # (Auto) Baso # (Auto) Immature Gran # (Auto) PT INR APTT PTT Ratio VBG pH 7.46 H VBG pCO2 40 VBG pO2 41 VBG HCO3 28 VBG O2 Saturation 75.8 VBG Base Excess 3.7 Barometric Pressure 730.2 Sodium Potassium Chloride Carbon Dioxide Anion Gap BUN Creatinine Est Cr Clr Drug Dosing Est GFR ( Amer) Est GFR (Non-Af Amer) BUN/Creatinine Ratio Glucose POC Glucose Lactate 2.5 H* Calcium Magnesium Total Bilirubin AST ALT Alkaline Phosphatase Troponin I High Sens Total Protein Albumin Globulin Albumin/Globulin Ratio Urine Color Yellow Urine Appearance Cloudy A Urine pH 5.5 Ur Specific [place] 1.025 Urine Protein Negative Urine Glucose (UA) 3+ H Urine Ketones Trace H Urine Blood Negative Urine Nitrite Negative Urine Bilirubin Negative Urine Urobilinogen Negative Ur Leukocyte Esterase 1+ H Urine WBC (Auto) >30 H Urine RBC (Auto) 0-4 U Hyaline Cast (Auto) 0 U Epithel Cells (Auto) >30 H Urine Bacteria (Auto) 4+ H SARS-CoV-2 (PCR) Influenza Type A (PCR) Influenza Type B (PCR) RSV (RT-PCR) 03/05/22 03/05/22 03/05/22 04:56 07:50 09:20 WBC RBC Hgb Hct MCV MCH MCHC RDW Std Deviation RDW Coeff of Valerio Plt Count MPV Immature Gran % (Auto) Neut % (Auto) Lymph % (Auto) [place] % (Auto) Eos % (Auto) Baso % (Auto) Neut # (Auto) Lymph # (Auto) [place] # (Auto) Eos # (Auto) Baso # (Auto) Immature Gran # (Auto) PT INR APTT PTT Ratio VBG pH VBG pCO2 VBG pO2 VBG HCO3 VBG O2 Saturation VBG Base Excess Barometric Pressure Sodium Potassium Chloride Carbon Dioxide Anion Gap BUN Creatinine Est Cr Clr Drug Dosing Est GFR ( Amer) Est GFR (Non-Af Amer) BUN/Creatinine Ratio Glucose POC Glucose 320 H* 343 H* Lactate Calcium Magnesium Total Bilirubin AST ALT Alkaline Phosphatase Troponin I High Sens 54.9 H* Total Protein Albumin Globulin Albumin/Globulin Ratio Urine Color Urine Appearance Urine pH Ur Specific [place] Urine Protein Urine Glucose (UA) Urine Ketones Urine Blood Urine Nitrite Urine Bilirubin Urine Urobilinogen Ur Leukocyte Esterase Urine WBC (Auto) Urine RBC (Auto) U Hyaline Cast (Auto) U Epithel Cells (Auto) Urine Bacteria (Auto) SARS-CoV-2 (PCR) Influenza Type A (PCR) Influenza Type B (PCR) RSV (RT-PCR) 03/05/22 03/05/22 03/05/22 09:21 09:25 11:58 WBC RBC Hgb Hct MCV MCH MCHC RDW Std Deviation RDW Coeff of Valerio Plt Count MPV Immature Gran % (Auto) Neut % (Auto) Lymph % (Auto) [place] % (Auto) Eos % (Auto) Baso % (Auto) Neut # (Auto) Lymph # (Auto) [place] # (Auto) Eos # (Auto) Baso # (Auto) Immature Gran # (Auto) PT INR APTT PTT Ratio VBG pH VBG pCO2 VBG pO2 VBG HCO3 VBG O2 Saturation VBG Base Excess Barometric Pressure Sodium Potassium Chloride Carbon Dioxide Anion Gap BUN Creatinine Est Cr Clr Drug Dosing Est GFR ( Amer) Est GFR (Non-Af Amer) BUN/Creatinine Ratio Glucose POC Glucose 337 H* 390 H* Lactate Calcium Magnesium Total Bilirubin AST ALT Alkaline Phosphatase Troponin I High Sens 74.6 H* D Total Protein Albumin Globulin Albumin/Globulin Ratio Urine Color Urine Appearance Urine pH Ur Specific [place] Urine Protein Urine Glucose (UA) Urine Ketones Urine Blood Urine Nitrite Urine Bilirubin Urine Urobilinogen Ur Leukocyte Esterase Urine WBC (Auto) Urine RBC (Auto) U Hyaline Cast (Auto) U Epithel Cells (Auto) Urine Bacteria (Auto) SARS-CoV-2 (PCR) Influenza Type A (PCR) Influenza Type B (PCR) RSV (RT-PCR) 03/05/22 03/05/22 11:59 14:25 WBC RBC Hgb Hct MCV MCH MCHC RDW Std Deviation RDW Coeff of Valerio Plt Count MPV Immature Gran % (Auto) Neut % (Auto) Lymph % (Auto) [place] % (Auto) Eos % (Auto) Baso % (Auto) Neut # (Auto) Lymph # (Auto) [place] # (Auto) Eos # (Auto) Baso # (Auto) Immature Gran # (Auto) PT INR APTT PTT Ratio VBG pH VBG pCO2 VBG pO2 VBG HCO3 VBG O2 Saturation VBG Base Excess Barometric Pressure Sodium Potassium Chloride Carbon Dioxide Anion Gap BUN Creatinine Est Cr Clr Drug Dosing Est GFR ( Amer) Est GFR (Non-Af Amer) BUN/Creatinine Ratio Glucose POC Glucose 416 H* 278 H Lactate Calcium Magnesium Total Bilirubin AST ALT Alkaline Phosphatase Troponin I High Sens Total Protein Albumin Globulin Albumin/Globulin Ratio Urine Color Urine Appearance Urine pH Ur Specific [place] Urine Protein Urine Glucose (UA) Urine Ketones Urine Blood Urine Nitrite Urine Bilirubin Urine Urobilinogen Ur Leukocyte Esterase Urine WBC (Auto) Urine RBC (Auto) U Hyaline Cast (Auto) U Epithel Cells (Auto) Urine Bacteria (Auto) SARS-CoV-2 (PCR) Influenza Type A (PCR) Influenza Type B (PCR) RSV (RT-PCR) Medications Administered Current Inpatient Medications Acetaminophen (Acetaminophen 325 Mg Tab) 650 mg PO Q4H PRN PRN Reason: Pain or Fever Stop: 04/04/22 09:18 Aspirin (Aspirin 81 Mg Ectab) 81 mg PO DAILY [facility] Stop: 04/04/22 10:14 Last Admin: 03/05/22 12:01 Dose: 81 mg Documented by: Atorvastatin Calcium (Atorvastatin 40 Mg Tab) 40 mg PO DAILY [facility] Stop: 04/05/22 08:59 Buspirone HCl (Buspirone 15 Mg Tab) 15 mg PO BID [facility] Stop: 04/04/22 20:59 Clopidogrel Bisulfate (Clopidogrel Bisulfate 75 Mg Tab) 75 mg PO DAILY [facility] Stop: 04/04/22 10:14 Last Admin: 03/05/22 12:01 Dose: 75 mg Documented by: Cyclobenzaprine HCl (Cyclobenzaprine Hcl 10 Mg Tab) 10 mg PO HS PRN PRN Reason: MUSCLE SPASMS Stop: 04/04/22 10:10 Dextrose (Dextrose 50% 50 Ml Syringe) 25 - 50 ml IV UD PRN; Protocol PRN Reason: Hypoglycemia Protocol Stop: 04/04/22 09:59 Docusate Sodium (Docusate Sodium 100 Mg Cap) 100 mg PO DAILY [facility] Stop: 04/05/22 08:59 Glucagon (Glucagon For Inj 1 Mg Vial) 1 mg IM UD PRN; Protocol PRN Reason: Hypoglycemia Protocol Stop: 04/04/22 09:59 Glucose (Glucose 40% Gel 15 Gm Tube) 15 - 30 gm PO UD PRN; Protocol PRN Reason: Hypoglycemia Protocol Stop: 04/04/22 09:59 Glucose (Glucose 10 Tabs/Tube) 4 - 8 tabs PO UD PRN; Protocol PRN Reason: Hypoglycemia Protocol Stop: 04/04/22 09:59 Ceftriaxone Sodium 2,000 mg/ (Dextrose) 70 mls @ 100 mls/hr IV Q24H [facility]; Protocol Stop: 03/15/22 06:59 Heparin Sodium/Dextrose (Heparin Sodium/Dextrose) 25,000 units in 500 mls @ 15 mls/hr IV .Q24H [facility]; Protocol Stop: 04/04/22 11:14 Last Admin: 03/05/22 12:08 Dose: 750 units/hr, 15 mls/hr Documented by: Insulin Aspart (Insulin Aspart Per Unit) 0 units SC ACHS [facility]; Protocol Stop: 04/04/22 09:18 Last Admin: 03/05/22 12:07 Dose: 103 units Documented by: Insulin Aspart (Insulin Aspart Per Unit) 0 units SC 0000,0400 [facility]; Protocol Stop: 04/05/22 00:00 Insulin Human NPH (Insulin Human Nph) 0 units SC BIDM [facility]; Protocol Stop: 04/04/22 09:59 Last Admin: 03/05/22 12:08 Dose: 100 units Documented by: Lactic Acid (Ammonium Lactate 12% Lotion 225 Gm Btl) 1 gm EXT BID [facility] Stop: 04/04/22 20:59 Levothyroxine Sodium (Levothyroxine Sodium 75 Mcg Tablet) 75 mcg PO DAILYBB [facility] Stop: 04/04/22 10:14 Last Admin: 03/05/22 12:02 Dose: 75 mcg Documented by: Meclizine HCl (Meclizine Hcl 25 Mg Tab) 50 mg PO BID [facility] Stop: 04/04/22 20:59 Melatonin (Melatonin 3 Mg Tab) 15 mg PO HS [facility] Stop: 04/04/22 20:59 Metoprolol Tartrate (Metoprolol Tartrate 50 Mg Tab) 50 mg PO BID [facility] Stop: 04/04/22 10:14 Last Admin: 03/05/22 12:02 Dose: 50 mg Documented by: Miscellaneous (Carbohydrates For Hypoglycemia ) 15 - 30 gm PO UD PRN PRN Reason: Hypoglycemia Treatment Stop: 04/04/22 09:59 Miscellaneous (Vraylar 3mg: Order Awaiting Action) 1 ea N/A QS [facility] Stop: 04/04/22 15:59 Miscellaneous Information (Pharmacy Glycemic Mgmt Consult) 1 ea N/A UD PRN PRN Reason: Consult Stop: 04/04/22 09:18 Multivitamins (Multivitamin Tab) 1 tab PO DAILY [facility] Stop: 04/05/22 08:59 Nitroglycerin (Nitroglycerin Sl 0.4 Mg/Tab Tab) 0.4 mg SL UD PRN PRN Reason: Chest Pain Stop: 04/04/22 09:18 Nystatin (Nystatin Powder 15gm Btl) 1 appln EXT TID [facility] Stop: 04/04/22 13:59 Ondansetron HCl (Ondansetron Inj 2 Mg/Ml 2 Ml Vial) 4 mg IV Q6H PRN PRN Reason: Nausea Stop: 04/04/22 09:18 Polyethylene Glycol (Polyethylene (Miralax) 17 Gm Pack) 17 gm PO DAILY PRN PRN Reason: Constipation Stop: 04/04/22 09:18 Pregabalin (Pregabalin 75 Mg Cap) 75 mg PO BID [facility] Stop: 04/04/22 20:59 Spironolactone (Spironolactone 25 Mg Tab) 25 mg PO QAM [facility] Stop: 04/04/22 10:29 Last Admin: 03/05/22 12:01 Dose: 25 mg Documented by: Torsemide (Torsemide 20 Mg Tab) 20 mg PO QAM [facility] Stop: 04/04/22 10:29 Last Admin: 03/05/22 12:01 Dose: 20 mg Documented by: Valsartan (Valsartan 80 Mg Tab) 20 mg PO DAILY [facility] Stop: 04/04/22 10:14 Last Admin: 03/05/22 12:01 Dose: 20 mg Documented by: Vitamin B Complex (Vitamin B Complex Tab) 1 tab PO DAILY [facility] Stop: 04/05/22 08:59
--- NOTE | 2022-03-05 14:11 | CT Scan Report ---
CT abd pelvis IV con only CLINICAL HISTORY: R flank and lower abd pain COMPARISON STUDY: 05/03/2019 CT DOSE: TECHNIQUE: Standard CT of the Abdomen and Pelvis was performed with IV contrast. A dose lowering ashley hnique was utilized adhering to the principles of ALARA. Contrast Volume: Optiray 320, 120 ml. The patient did not receive oral contrast. FINDINGS: Abdominal cavity: There is no evidence for abdominal mass, adenopathy or ascites. Liver: There is homogeneous attenuation of the liver parenchyma. There is no evidence for enhancing m ass lesion. There is again hepatomegaly with a sharply defined cyst of the left lobe of the liver. Spleen: There is homogeneous attenuation of the splenic parenchyma. There is no enhancing mass lesion . There is again splenomegaly. Pancreas: There is homogeneous attenuation of the pancreatic parenchyma. There is no evidence for mas s lesion or peripancreatic fluid collection. Gall Bladder: The gallbladder is contracted. Adrenal glands: The adrenal glands are normal in size and attenuation. There is no evidence for enhan cing mass lesion. Kidneys: There is homogeneous attenuation of the renal parenchyma bilaterally. There is a 2 mm nonobs tructing right renal calculus. There is no evidence for left renal calculus or hydronephrosis bilater ally. Sharply defined simple renal cysts are again seen. There is no evidence for enhancing mass. Bowel: There is again diastases of the anterior abdominal wall muscles with a large panniculus presen t involving the lower pelvic wall. The bowel loops are normally placed within the abdomen and pelvis without evidence for dilatation or obstruction. There is no evidence for mass lesion. There are no in flammatory changes present. There is no evidence for free air. Bladder: The bladder is within normal limits with no evidence for focal mass, calculus or diverticulu m. There is present within the bladder which is most likely related to previous instrumentation. : There is no evidence for pelvic mass or adenopathy. There is no evidence for pelvic ascites. Vasculature: There is no evidence for aneurysmal dilatation of the abdominal aorta. Atherosclerotic c alcification is present. Osseous structures: There is no acute osseous pathology. Degenerative changes are present within the spine. IMPRESSION: 1. No acute intra-abdominal or pelvic abnormality. 2. 2 mm nonobstructing right renal calculus. 3. There is again diastases of the anterior abdominal wall muscles with large panniculus present ante riorly. No bowel loop dilatation or obstruction. 4. There is again hepatosplenomegaly. 5. Renal cysts. 6. Additional nonacute findings are delineated above. ACT 112: Negative or not required by law. Electronically signed by: Reza Aguilar M.D. 03/05/2022 2:08 PM
[2022-03-05] MEDS ORDERED: INSULIN ASPART PER UNIT SC ONE (14:30)
[2022-03-05] MEDS ORDERED: COLCHICINE 0.6 MG TAB PO ONE (14:43)
[2022-03-05] MEDS: NYSTATIN POWDER 15GM BTL EXT SCH ×2 (14:47→20:15)
--- NOTE | 2022-03-05 17:30 | Electrocardiogram Report ---
Test Reason : Blood Pressure : / mmHG Vent. Rate : 107 BPM Atrial Rate : 107 BPM P-R Int : 174 ms QRS Dur : 100 ms QT Int : 374 ms P-R-T Axes : 082 -36 102 degrees QTc Int : 499 ms Sinus tachycardia Left axis deviation Poor R wave progression, consider anterior [place] vs. lead placement vs. LVH Abnormal ECG When compared with ECG of 05-MAR-2022 02:47, No significant change was found Confirmed by Lauro Parada ([id number]) on 03/05/2022 5:30:07 PM Referred By: REFERRED SELF Confirmed By:Jama Parada
[2022-03-05 18:29] LABS: Partial Thromboplastin Ratio 1.1; Partial Thromboplastin Time 30.2 Seconds (21.0-31.0)
[2022-03-05] MEDS ORDERED: HEPARIN IV BOLUS 4,000 UNITS in SYRINGE 0 ML IV ONE (19:00)
[2022-03-05] MEDS: MELATONIN 3 MG TAB PO SCH (20:03)
[2022-03-05] MEDS: PREGABALIN 75 MG CAP PO SCH (20:03)
[2022-03-05] MEDS: AMMONIUM LACTATE 12% LOTION 225 GM BTL EXT SCH (20:05)
[2022-03-05] MEDS: busPIRone 15 MG TAB PO SCH (20:05)
[2022-03-05] MEDS: MECLIZINE HCL 25 MG TAB PO SCH (20:06)
[2022-03-06] MEDS: INSULIN ASPART PER UNIT SC SCH ×6 (00:03→20:36)
[2022-03-06 01:01] LABS: Partial Thromboplastin Ratio 1.5; Partial Thromboplastin Time 41.9 Seconds (21.0-31.0)
[2022-03-06] MEDS: cefTRIAXone SODIUM 2,000 MG in DEXTROSE 5% 50 ML IV SCH (06:17)
[2022-03-06] MEDS: LEVOTHYROXINE SODIUM 75 MCG TABLET PO SCH (06:43)
[2022-03-06 08:22] LABS: Hemoglobin 12.5 g/dL (12.0-16.0); Mean Corpuscular Hemoglobin 28.5 pg (25-34); Mean Corpuscular Hgb Conc 34.7 g/dL (32-36); Mean Platelet Volume 11.5 fL (7.4-10.4); Platelet Count 115 K/uL (130-400); RDW Coefficient of Variation 14.9 % (11.5-14.5); RDW Standard Deviation 44.5 fL (36.4-46.3); Red Blood Count 4.39 M/uL (4.2-5.4); White Blood Count 6.32 K/uL (4.8-10.8)
[2022-03-06 08:25] LABS: Partial Thromboplastin Ratio 1.4; Partial Thromboplastin Time 38.3 Seconds (21.0-31.0)
[2022-03-06 08:52] LABS: BUN Creatinine Ratio 16.7 (10-20); Calcium 8.3 mg/dl (8.5-10.1); Creatinine Clr Calc Pharmacy 52.9 ml/min; Est GFR (African American) 67.8 ml/min; Est GFR (Non-African American) 58.5 ml/min; Magnesium 1.3 mg/dl (1.7-2.4); Potassium 2.8 mmol/L (3.5-5.1)
[2022-03-06 08:59] LABS: Basophils # (auto) 0.01 K/uL (0-0.2); Basophils % (auto) 0.2 %; Eosinophils # (auto) 0.09 K/uL (0-0.5); Eosinophils % (auto) 1.4 %; Immature Granulocytes # (auto) 0.01 K/uL (0.00-0.02); Immature Granulocytes % (auto) 0.2 %; Lymphocytes # (auto) 3.54 K/uL (1.2-3.4); Monocytes # (auto) 0.59 K/uL (0.11-0.59); Monocytes % (auto) 9.3 %; Neutrophils # (auto) 2.08 K/uL (1.4-6.5); Neutrophils % (auto) 32.9 %
[2022-03-06 10:05] LABS: Estimated Average Glucose 260 mg/dl; Hemoglobin A1C 10.7 % (4.5-5.6)
[2022-03-06] MEDS: INSULIN HUMAN NPH SC SCH (10:13)
[2022-03-06] MEDS: AMMONIUM LACTATE 12% LOTION 225 GM BTL EXT SCH ×2 (10:18→22:04)
[2022-03-06] MEDS: ASPIRIN 81 MG ECTAB PO SCH (10:23)
[2022-03-06] MEDS: ATORVASTATIN 40 MG TAB PO SCH (10:23)
[2022-03-06] MEDS: busPIRone 15 MG TAB PO SCH ×2 (10:23→22:02)
[2022-03-06] MEDS: CLOPIDOGREL BISULFATE 75 MG TAB PO SCH (10:23)
[2022-03-06] MEDS: SPIRONOLACTONE 25 MG TAB PO SCH (10:24)
[2022-03-06] MEDS: COLCHICINE 0.6 MG TAB PO SCH (10:24)
[2022-03-06] MEDS: NYSTATIN POWDER 15GM BTL EXT SCH ×3 (10:24→22:03)
[2022-03-06] MEDS: METOPROLOL TARTRATE 50 MG TAB PO SCH ×2 (10:24→22:03)
[2022-03-06] MEDS: MECLIZINE HCL 25 MG TAB PO SCH ×2 (10:24→22:03)
[2022-03-06] MEDS: MULTIVITAMIN TAB PO SCH (10:24)
[2022-03-06] MEDS: DOCUSATE SODIUM 100 MG CAP PO SCH (10:24)
[2022-03-06] MEDS: PREGABALIN 75 MG CAP PO SCH ×2 (10:24→22:01)
[2022-03-06] MEDS: VALSARTAN 80 MG TAB PO SCH (10:25)
[2022-03-06] MEDS: TORSEMIDE 20 MG TAB PO SCH ×2 (10:25→12:42)
[2022-03-06] MEDS: VITAMIN B COMPLEX TAB PO SCH (10:26)
[2022-03-06] MEDS ORDERED: POTASSIUM CHLORIDE CRTAB 20 MEQ TABCR PO STA ×2 (11:09→18:17)
--- NOTE | 2022-03-06 12:10 | Hospitalist Progress Note ---
Date of Service March 06, 2022 Assessment & Plan (1) Chest pain: Plan: Chest pain Cards evaluation appreciated. Had mild troponin elevation. Cardiology could not get the good window on echo. Was started on colchicine per cardiology for possible pericarditis. Symptoms seem to have improved this morning. We will follow-up cardiology about heparin drip. There was initial concern for possible PE on admission but this was ruled out by CT PE. Dopplers were also negative for DVT Patient CT abdomen did not show any acute abnormalities. Has hepatosplenomegaly. Lab work showed mildly elevated lactate which seem to have been since about the same in the past. (2) UTI (urinary tract infection): Plan: Patient has history of recurrent UTI. Daughter also reported patient was confused prior to admission Metabolic encephalopathy likely due to UTI, hyperglycemia UA on admission noted leukocyte esterase and more than 30 WBC. Continue ceftriaxone Urine culture growing GNR. Follow-up speciation and sensitivities. Patient will need urology follow-up outpatient for evaluation for recurrent UTI. (3) Intertrigo: Plan: Keep skin dry. Continue skin care and nystatin (4) IDDM (insulin dependent diabetes mellitus): Plan: According to outpatient pharmacy MTM note from 12/26/2021 on [facility], patient is currently on Ozempic 1 mg weekly, metformin 850 mg twice daily and Humulin U-500 290 units breakfast, 300 units lunch and 240 units with dinner. Dose was adjusted to Humulin U-500 310U breakfast, 300U lunch and 220U dinner A1c 10.1 Pharm glycemic consult DM educator consult Continue insulin regimen for glycemic control (5) Hypokalemia: (6) Hypomagnesemia: Plan: K 2.8 and Mag 1.3 today Replete and monitor. (7) DANYELLE (obstructive sleep apnea): Plan: CPAP HS (8) H/O aortic valve replacement: (9) HTN (hypertension): Plan: Continue home meds (10) Hypothyroidism: Plan: Continue home meds (11) Depression with anxiety: Plan: Continue home meds DVT ppx- hep PT/OT eval Admission and Anticipated Discharge Date Admission Date: March 05, 2022 Subjective Patient seen and examined. Patient reports no chest pain or abdominal pain today. Denies any nausea, vomiting Reports dry cough. Reports occasional dyspnea on exertion. Reports weakness and balance issues for some time. No constipation or diarrhea reported today. Denies any fevers, chills Reports dysuria. No freq/urgency Physical Exam Constitutional: + well hydrated and + obese; no acute distress Eyes: PERRL, conjunctivae normal, anicteric sclerae ENMT: external ear and nose normal, oropharynx normal Respiratory: normal respiratory effort, lungs clear to auscultation Cardiovascular: Rate/Rhythm: regular rate and regular rhythm S1 S2 Gastrointestinal (Abdomen): normal bowel sounds, soft, nontender, no hepatosplenomegaly Musculoskeletal: No pedal edema Skin: Erythema rash in groin folds (L>R) Neurologic: PERRL, EOMI, accommodation nl, no face palsy, no dysarthria Psychiatric: A+Ox3, euthymic affect Results & Data Results & Data ([facility]) Vital Signs (Past 12 Hours) Vital Signs Temp Pulse Pulse Pulse Resp BP BP 03/06/22 07:37 64 03/06/22 07:29 36.9 C 75 18 112/69 03/06/22 03:48 74 03/06/22 03:43 72 20 03/06/22 03:13 37.0 C 66 20 113/68 Pulse Ox 03/06/22 07:37 03/06/22 07:29 93 03/06/22 03:48 03/06/22 03:43 94 03/06/22 03:13 94 Laboratory Results Abnormal lab results 03/05/22 03/05/22 03/05/22 Range/Units 11:58 11:59 14:25 Hct (37-47) % RDW Coeff of Valerio (11.5-14.5) % Plt Count (130-400) K/uL MPV (7.4-10.4) fL Lymph # (Auto) (1.2-3.4) K/uL APTT (21.0-31.0) Seconds Sodium (136-145) mmol/L Potassium (3.5-5.1) mmol/L Chloride (98-107) mmol/L Glucose (70-99(Fasting)) mg/dl POC Glucose 390 H* 416 H* 278 H (70-99) mg/dl Hemoglobin A1c (4.5-5.6) % Calcium (8.5-10.1) mg/dl Magnesium (1.7-2.4) mg/dl Troponin I High Sens (0-14) pg/ml 03/05/22 03/05/22 03/05/22 Range/Units 15:37 16:35 21:15 Hct (37-47) % RDW Coeff of Valerio (11.5-14.5) % Plt Count (130-400) K/uL MPV (7.4-10.4) fL Lymph # (Auto) (1.2-3.4) K/uL APTT (21.0-31.0) Seconds Sodium (136-145) mmol/L Potassium (3.5-5.1) mmol/L Chloride (98-107) mmol/L Glucose (70-99(Fasting)) mg/dl POC Glucose 138 H (70-99) mg/dl Hemoglobin A1c (4.5-5.6) % Calcium (8.5-10.1) mg/dl Magnesium (1.7-2.4) mg/dl Troponin I High Sens 56.4 H* D 68.7 H* D (0-14) pg/ml 03/06/22 03/06/22 03/06/22 Range/Units 00:39 03:51 07:47 Hct 36.0 L (37-47) % RDW Coeff of Valerio 14.9 H (11.5-14.5) % Plt Count 115 L (130-400) K/uL MPV 11.5 H (7.4-10.4) fL Lymph # (Auto) 3.54 H (1.2-3.4) K/uL APTT 41.9 H (21.0-31.0) Seconds Sodium (136-145) mmol/L Potassium (3.5-5.1) mmol/L Chloride (98-107) mmol/L Glucose (70-99(Fasting)) mg/dl POC Glucose 160 H (70-99) mg/dl Hemoglobin A1c (4.5-5.6) % Calcium (8.5-10.1) mg/dl Magnesium (1.7-2.4) mg/dl Troponin I High Sens (0-14) pg/ml 03/06/22 03/06/22 03/06/22 Range/Units 07:47 07:47 07:47 Hct (37-47) % RDW Coeff of Valerio (11.5-14.5) % Plt Count (130-400) K/uL MPV (7.4-10.4) fL Lymph # (Auto) (1.2-3.4) K/uL APTT 38.3 H (21.0-31.0) Seconds Sodium 135 L (136-145) mmol/L Potassium 2.8 L (3.5-5.1) mmol/L Chloride 97 L (98-107) mmol/L Glucose 207 H (70-99(Fasting)) mg/dl POC Glucose (70-99) mg/dl Hemoglobin A1c 10.7 H (4.5-5.6) % Calcium 8.3 L (8.5-10.1) mg/dl Magnesium 1.3 L (1.7-2.4) mg/dl Troponin I High Sens (0-14) pg/ml 03/06/22 Range/Units 08:00 Hct (37-47) % RDW Coeff of Valerio (11.5-14.5) % Plt Count (130-400) K/uL MPV (7.4-10.4) fL Lymph # (Auto) (1.2-3.4) K/uL APTT (21.0-31.0) Seconds Sodium (136-145) mmol/L Potassium (3.5-5.1) mmol/L Chloride (98-107) mmol/L Glucose (70-99(Fasting)) mg/dl POC Glucose 216 H (70-99) mg/dl Hemoglobin A1c (4.5-5.6) % Calcium (8.5-10.1) mg/dl Magnesium (1.7-2.4) mg/dl Troponin I High Sens (0-14) pg/ml
[2022-03-06] MEDS: MAGNESIUM SULFATE / D5W 1 GM/100 ML BAG IV SCH ×2 (13:08→16:24)
[2022-03-06] MEDS: POTASSIUM CHLORIDE / WTR 10 MEQ/100 ML PLCT IV SCH ×2 (13:13→16:24)
--- NOTE | 2022-03-06 13:57 | Pharmacy Report ---
Pharmacy Glycemic Short Note 2 - Date of Service March 06, 2022 - Glycemic Short BSG Results (Last 24 hours): 03/05/22 03/05/22 03/05/22 14:25 16:35 19:49 Glucose POC Glucose 278 H 138 H 96 03/06/22 03/06/22 03/06/22 00:00 03:51 07:47 Glucose 207 H POC Glucose 95 160 H 03/06/22 03/06/22 08:00 12:02 Glucose POC Glucose 216 H 299 H OUTPATIENT ANTIDIABETIC REGIMEN: * U-500, 300 Units TID with meals (confirmed with patient) * 8.1% 11/03/2019 - updated A1c ordered ASSESSMENT: 03/06/22 * Patient's BSGs yesterday were [phone]/138-96 mg/dL and overnight were 95- 160 mg/dL. * Today's BSGs are 216-299 mg/dL. Breakfast insulin was given at 1000 which may have affected lunch BSG. * During previous hospitalization, patient received roughly 200 units of NPH per day. This was in 2019. Per scale, patient received 120 units of NPH with breakfast. Will schedule 100 units with dinner to equal 220 units of NPH today. This is a 10% increase from yesterday. Titrate tomorrow as appropriate. * Tightened Novolog. Background * 61 year old female admitted with flu like symptoms, possible UTI, started on IV ceftriaxone, IV heparin drip. * Patient known to glycemic service from 2019, and had hypoglycemia when on U500 as inpatient. * Begin using NPH and NovoLog while inpatient like previous admission, so that insulin is more titratable, and consider switching to U500 if euglycemia is not achieved after 24 hours. * Patient received 10 units IV insulin in ER for BSG 431 at 0300. * BSG 416mg/dl when consult received, gave 103 units SQ Novolog at 1200- recheck 2 hours after = 278mg/dl - gave another 32 units correctional insulin. PLAN FOR INPATIENT GLYCEMIC CONTROL: * Basal insulin * NPH 100 units with dinner then adjust * Bolus insulin * NovoLog per scale ACHS or Q6hrs while NPO * Goal Range: Low 120 mg/dL - High 150 mg/dL * Correction Factor: 8 mg/dL/unit * Nutritional / Prandial insulin per carb ratio of 1 unit per 1.25 grams CHO consumed
[2022-03-06 15:48] LABS: Partial Thromboplastin Ratio 1.2; Partial Thromboplastin Time 33.8 Seconds (21.0-31.0)
[2022-03-06] MEDS ORDERED: HEPARIN SOD (PORCINE) 1000 UNIT/ML IV ONE (16:09)
[2022-03-06] MEDS ORDERED: HEPARIN IV BOLUS 2,000 UNITS in SYRINGE 0 ML IV ONE (16:30)
[2022-03-06] MEDS ORDERED: INSULIN HUMAN NPH SC SCH (16:30)
[2022-03-06] MEDS: HEPARIN SODIUM/DEXTROSE 25,000 UNITS/500 ML BAG IV SCH (16:44)
[2022-03-06] MEDS: MELATONIN 3 MG TAB PO SCH (22:01)
[2022-03-06] MEDS: PHENAZOPYRIDINE HCL 100 MG TAB PO PRN (22:01)
[2022-03-06 23:01] LABS: Partial Thromboplastin Ratio 1.5; Partial Thromboplastin Time 41.4 Seconds (21.0-31.0)
[2022-03-07] MEDS: INSULIN ASPART PER UNIT SC SCH ×6 (00:54→21:10)
[2022-03-07] MEDS: HEPARIN SODIUM/DEXTROSE 25,000 UNITS/500 ML BAG IV SCH (05:09)
[2022-03-07 06:11] LABS: Hematocrit (blood only) 36.5 % (37-47); Hemoglobin 12.4 g/dL (12.0-16.0); Mean Corpuscular Hemoglobin 28.2 pg (25-34); Mean Platelet Volume 11.5 fL (7.4-10.4); Platelet Count 121 K/uL (130-400); RDW Coefficient of Variation 14.9 % (11.5-14.5); RDW Standard Deviation 45.4 fL (36.4-46.3); White Blood Count 6.27 K/uL (4.8-10.8)
[2022-03-07 06:20] LABS: Partial Thromboplastin Ratio 1.6; Partial Thromboplastin Time 44.4 Seconds (21.0-31.0)
[2022-03-07] MEDS: LEVOTHYROXINE SODIUM 75 MCG TABLET PO SCH (06:25)
[2022-03-07] MEDS: PHENAZOPYRIDINE HCL 100 MG TAB PO PRN ×2 (06:26→21:10)
[2022-03-07] MEDS: cefTRIAXone SODIUM 2,000 MG in DEXTROSE 5% 50 ML IV SCH (06:28)
[2022-03-07 06:35] LABS: Albumin Globulin Ratio 1.2 (0.9-2); Albumin Level 3.3 gm/dl (3.4-5.0); BUN Creatinine Ratio 20.5 (10-20); Bilirubin,Total 0.5 mg/dl (0.2-1.0); Calcium 8.1 mg/dl (8.5-10.1); Creatinine Clr Calc Pharmacy 48.2 ml/min; Est GFR (African American) 60.5 ml/min; Est GFR (Non-African American) 52.2 ml/min; Globulin 2.7 gm/dl (2.5-4.0); Magnesium 1.7 mg/dl (1.7-2.4); Potassium 3.1 mmol/L (3.5-5.1)
[2022-03-07] MEDS ORDERED: INSULIN HUMAN NPH SC ONE ×3 (07:30→17:00)
[2022-03-07] MEDS ORDERED: POTASSIUM CHLORIDE CRTAB 20 MEQ TABCR PO STA (07:45)
[2022-03-07] MEDS: DOCUSATE SODIUM 100 MG CAP PO SCH (07:52)
[2022-03-07] MEDS: METOPROLOL TARTRATE 50 MG TAB PO SCH ×2 (07:52→21:13)
[2022-03-07] MEDS: ASPIRIN 81 MG ECTAB PO SCH (07:53)
[2022-03-07] MEDS: MULTIVITAMIN TAB PO SCH (07:53)
[2022-03-07] MEDS: VALSARTAN 80 MG TAB PO SCH (07:54)
[2022-03-07] MEDS: TORSEMIDE 20 MG TAB PO SCH (07:54)
[2022-03-07] MEDS: busPIRone 15 MG TAB PO SCH ×2 (07:54→21:14)
[2022-03-07] MEDS: COLCHICINE 0.6 MG TAB PO SCH (07:55)
[2022-03-07] MEDS: VITAMIN B COMPLEX TAB PO SCH (07:55)
[2022-03-07] MEDS: CLOPIDOGREL BISULFATE 75 MG TAB PO SCH (07:55)
[2022-03-07] MEDS: SPIRONOLACTONE 25 MG TAB PO SCH (07:55)
[2022-03-07] MEDS: ATORVASTATIN 40 MG TAB PO SCH (07:55)
[2022-03-07] MEDS: MECLIZINE HCL 25 MG TAB PO SCH ×2 (07:56→21:11)
[2022-03-07] MEDS: NYSTATIN POWDER 15GM BTL EXT SCH ×3 (07:56→21:14)
[2022-03-07] MEDS: AMMONIUM LACTATE 12% LOTION 225 GM BTL EXT SCH ×2 (07:56→21:14)
[2022-03-07] MEDS: PREGABALIN 75 MG CAP PO SCH ×2 (08:09→21:10)
[2022-03-07] MEDS: POTASSIUM CHLORIDE / WTR 10 MEQ/100 ML PLCT IV SCH ×3 (08:19→10:51)
--- NOTE | 2022-03-07 10:46 | Hospitalist Progress Note ---
Date of Service March 07, 2022 Assessment & Plan (1) Chest pain: Plan: Chest pain Cards evaluation appreciated. Had mild troponin elevation. Cardiology could not get a good window on echo. Was started on colchicine per cardiology for possible pericarditis. Chest pain resolved so far Will complete heparin drip 48h today There was initial concern for possible PE on admission but this was ruled out by CT PE. Dopplers were also negative for DVT Patient CT abdomen did not show any acute abnormalities. Has hepatosplenomegaly. Lab work showed mildly elevated lactate which seem to have been since about the same in the past. (2) UTI (urinary tract infection): Plan: Patient has history of recurrent UTI. Daughter also reported patient was confused prior to admission Metabolic encephalopathy likely due to UTI, hyperglycemia UA on admission noted leukocyte esterase and more than 30 WBC. Continue ceftriaxone Urine culture growing pansensitive Klebsiella Plan to change to po antibiotics on discharge Patient will need urology follow-up outpatient for evaluation for recurrent UTI. (3) Intertrigo: Plan: Keep skin dry. Continue skin care and nystatin (4) IDDM (insulin dependent diabetes mellitus): Plan: According to outpatient pharmacy MTM note from 12/26/2021 on [facility], patient is currently on Ozempic 1 mg weekly, metformin 850 mg twice daily and Humulin U-500 290 units breakfast, 300 units lunch and 240 units with dinner. Dose was adjusted to Humulin U-500 310U breakfast, 300U lunch and 220U dinner A1c 10.1 Pharm glycemic consult DM educator consult Continue insulin regimen for glycemic control (5) Hypokalemia: (6) Hypomagnesemia: Plan: K is 3.1 today Replete and monitor. (7) DANYELLE (obstructive sleep apnea): Plan: CPAP HS (8) H/O aortic valve replacement: (9) HTN (hypertension): Plan: Continue home meds (10) Hypothyroidism: Plan: Continue home meds (11) Depression with anxiety: Plan: Continue home meds DVT ppx- hep Awaiting PT/OT eval Admission and Anticipated Discharge Date Admission Date: March 05, 2022 Subjective Patient seen and examined. Reports feeling better today Patient reports no chest pain or abdominal pain today. Denies any nausea, vomiting Reports dry cough. Reports occasional dyspnea on exertion, chronic. Still reports weakness and balance issues this morning Denied constipation or diarrhea Denies any fevers, chills Still has dysuria. No freq/urgency/hematuria Physical Exam Constitutional: + well hydrated and + obese; no acute distress Eyes: PERRL, conjunctivae normal, anicteric sclerae ENMT: external ear and nose normal, oropharynx normal Respiratory: normal respiratory effort, lungs clear to auscultation Cardiovascular: Rate/Rhythm: regular rate and regular rhythm S1 S2 Gastrointestinal (Abdomen): normal bowel sounds, soft, nontender, no hepatosplenomegaly Skin: Groin fold erythematous rash (L>R) improving Neurologic: PERRL, EOMI, accommodation nl, no face palsy, no dysarthria Psychiatric: A+Ox3, euthymic affect Results & Data Results & Data ([facility]) Vital Signs (Past 12 Hours) Vital Signs Temp Pulse Pulse Resp BP BP Pulse Ox 03/07/22 07:42 36.5 C 66 18 109/69 94 03/07/22 07:41 68 03/07/22 03:20 36.8 C 72 20 110/71 96 03/06/22 23:36 84 03/06/22 22:40 36.9 C 80 20 115/71 94 Laboratory Results Abnormal lab results 03/06/22 03/06/22 03/06/22 Range/Units 12:02 15:05 15:05 Hct (37-47) % RDW Coeff of Valerio (11.5-14.5) % Plt Count (130-400) K/uL MPV (7.4-10.4) fL APTT 33.8 H (21.0-31.0) Seconds Potassium 3.1 L (3.5-5.1) mmol/L BUN/Creatinine Ratio (10-20) Glucose (70-99(Fasting)) mg/dl POC Glucose 299 H (70-99) mg/dl Calcium (8.5-10.1) mg/dl Albumin (3.4-5.0) gm/dl 03/06/22 03/06/22 03/06/22 Range/Units 16:47 20:02 22:33 Hct (37-47) % RDW Coeff of Valerio (11.5-14.5) % Plt Count (130-400) K/uL MPV (7.4-10.4) fL APTT 41.4 H (21.0-31.0) Seconds Potassium (3.5-5.1) mmol/L BUN/Creatinine Ratio (10-20) Glucose (70-99(Fasting)) mg/dl POC Glucose 110 H 116 H (70-99) mg/dl Calcium (8.5-10.1) mg/dl Albumin (3.4-5.0) gm/dl 03/07/22 03/07/22 03/07/22 Range/Units 04:29 05:21 05:21 Hct 36.5 L (37-47) % RDW Coeff of Valerio 14.9 H (11.5-14.5) % Plt Count 121 L (130-400) K/uL MPV 11.5 H (7.4-10.4) fL APTT 44.4 H (21.0-31.0) Seconds Potassium (3.5-5.1) mmol/L BUN/Creatinine Ratio (10-20) Glucose (70-99(Fasting)) mg/dl POC Glucose 136 H (70-99) mg/dl Calcium (8.5-10.1) mg/dl Albumin (3.4-5.0) gm/dl 03/07/22 03/07/22 Range/Units 05:21 07:35 Hct (37-47) % RDW Coeff of Valerio (11.5-14.5) % Plt Count (130-400) K/uL MPV (7.4-10.4) fL APTT (21.0-31.0) Seconds Potassium 3.1 L (3.5-5.1) mmol/L BUN/Creatinine Ratio 20.5 H (10-20) Glucose 132 H (70-99(Fasting)) mg/dl POC Glucose 123 H (70-99) mg/dl Calcium 8.1 L (8.5-10.1) mg/dl Albumin 3.3 L (3.4-5.0) gm/dl
[2022-03-07] MEDS ORDERED: Nursing to Pharmacy Communication SCH (12:15)
[2022-03-07 13:45] LABS: Partial Thromboplastin Ratio 1.1
--- NOTE | 2022-03-07 14:01 | Pharmacy Report ---
Pharmacy Glycemic Short Note 2 - Date of Service March 07, 2022 - Glycemic Short BSG Results (Last 24 hours): 03/06/22 03/06/22 03/06/22 16:47 20:02 23:08 Glucose POC Glucose 110 H 116 H 71 03/07/22 03/07/22 03/07/22 00:12 04:29 05:21 Glucose 132 H POC Glucose 84 136 H 03/07/22 03/07/22 07:35 11:24 Glucose POC Glucose 123 H 169 H OUTPATIENT ANTIDIABETIC REGIMEN: * U-500, 300 Units TID with meals (confirmed with patient) * 8.1% 11/03/2019 - updated A1c ordered ASSESSMENT: 03/07/22 * BSGs yesterday were [phone] mg/dL. Patient felt low at bedtime and was given treatment. * Patient received 354 units of insulin yesterday (220 units of basal and 134 units of bolus) * Will reduce basal by 20% due to feeling low at bedtime. Lower dose available if patient's BSGs trend lower tonight * Continue Novolog as this appears to be effective. 03/06/22 * Patient's BSGs yesterday were [phone]/138-96 mg/dL and overnight were 95- 160 mg/dL. * Today's BSGs are 216-299 mg/dL. Breakfast insulin was given at 1000 which may have affected lunch BSG. * During previous hospitalization, patient received roughly 200 units of NPH per day. This was in 2019. Per scale, patient received 120 units of NPH with breakfast. Will schedule 100 units with dinner to equal 220 units of NPH today. This is a 10% increase from yesterday. Titrate tomorrow as appropriate. * Tightened Novolog. Background * 61 year old female admitted with flu like symptoms, possible UTI, started on IV ceftriaxone, IV heparin drip. * Patient known to glycemic service from 2019, and had hypoglycemia when on U500 as inpatient. * Begin using NPH and NovoLog while inpatient like previous admission, so that insulin is more titratable, and consider switching to U500 if euglycemia is not achieved after 24 hours. * Patient received 10 units IV insulin in ER for BSG 431 at 0300. * BSG 416mg/dl when consult received, gave 103 units SQ Novolog at 1200- recheck 2 hours after = 278mg/dl - gave another 32 units correctional insulin. PLAN FOR INPATIENT GLYCEMIC CONTROL: * Basal insulin * NPH 80 units with dinner then adjust (60 units if BSG < 120 mg/dL) * Bolus insulin * NovoLog per scale ACHS or Q6hrs while NPO * Goal Range: Low 120 mg/dL - High 150 mg/dL * Correction Factor: 8 mg/dL/unit * Nutritional / Prandial insulin per carb ratio of 1 unit per 1.25 grams CHO consumed
--- NOTE | 2022-03-07 19:09 | Electrocardiogram Report ---
Test Reason : Blood Pressure : / mmHG Vent. Rate : 069 BPM Atrial Rate : 069 BPM P-R Int : 190 ms QRS Dur : 104 ms QT Int : 440 ms P-R-T Axes : 023 -22 078 degrees QTc Int : 471 ms Normal sinus rhythm Poor R wave progression, consider anterior [place] vs. lead placement vs. LVH When compared with ECG of 05-MAR-2022 12:42, Vent. rate has decreased BY 38 BPM Confirmed by Lauro Parada ([id number]) on 03/07/2022 7:09:07 PM Referred By: REFERRED SELF Confirmed By:Jama Parada
[2022-03-07] MEDS: MELATONIN 3 MG TAB PO SCH (21:11)
[2022-03-08] MEDS: LEVOTHYROXINE SODIUM 75 MCG TABLET PO SCH (05:49)
[2022-03-08] MEDS: cefTRIAXone SODIUM 2,000 MG in DEXTROSE 5% 50 ML IV SCH (06:06)
[2022-03-08 07:20] LABS: Hematocrit (blood only) 38.7 % (37-47); Hemoglobin 13.2 g/dL (12.0-16.0); Mean Corpuscular Hemoglobin 28.4 pg (25-34); Mean Corpuscular Hgb Conc 34.1 g/dL (32-36); Mean Corpuscular Volume 83.4 fL (80-100); Mean Platelet Volume 11.2 fL (7.4-10.4); Platelet Count 130 K/uL (130-400); RDW Coefficient of Variation 15.1 % (11.5-14.5); RDW Standard Deviation 45.8 fL (36.4-46.3); Red Blood Count 4.64 M/uL (4.2-5.4); White Blood Count 6.42 K/uL (4.8-10.8)
[2022-03-08 07:43] LABS: Albumin Globulin Ratio 1.2 (0.9-2); Albumin Level 3.6 gm/dl (3.4-5.0); BUN Creatinine Ratio 18.7 (10-20); Bilirubin,Total 0.6 mg/dl (0.2-1.0); Calcium 9.1 mg/dl (8.5-10.1); Creatinine Clr Calc Pharmacy 59.6 ml/min; Est GFR (African American) 77.8 ml/min; Est GFR (Non-African American) 67.1 ml/min; Globulin 2.9 gm/dl (2.5-4.0); Magnesium 1.6 mg/dl (1.7-2.4); Phosphorus 3.8 mg/dl (2.5-4.9); Potassium 3.6 mmol/L (3.5-5.1); Total Protein 6.5 gm/dl (6.0-8.3)
[2022-03-08] MEDS ORDERED: INSULIN HUMAN NPH SC ONE ×2 (08:00→17:30)
[2022-03-08] MEDS: SPIRONOLACTONE 25 MG TAB PO SCH (08:38)
[2022-03-08] MEDS: busPIRone 15 MG TAB PO SCH (08:39)
[2022-03-08] MEDS: MULTIVITAMIN TAB PO SCH (08:39)
[2022-03-08] MEDS: COLCHICINE 0.6 MG TAB PO SCH (08:39)
[2022-03-08] MEDS: METOPROLOL TARTRATE 50 MG TAB PO SCH (08:39)
[2022-03-08] MEDS: ATORVASTATIN 40 MG TAB PO SCH (08:39)
[2022-03-08] MEDS: VITAMIN B COMPLEX TAB PO SCH (08:40)
[2022-03-08] MEDS: MECLIZINE HCL 25 MG TAB PO SCH (08:40)
[2022-03-08] MEDS: TORSEMIDE 20 MG TAB PO SCH (08:40)
[2022-03-08] MEDS: VALSARTAN 80 MG TAB PO SCH (08:40)
[2022-03-08] MEDS: CLOPIDOGREL BISULFATE 75 MG TAB PO SCH (08:40)
[2022-03-08] MEDS: PHENAZOPYRIDINE HCL 100 MG TAB PO PRN (08:41)
[2022-03-08] MEDS: DOCUSATE SODIUM 100 MG CAP PO SCH (08:41)
[2022-03-08] MEDS: NYSTATIN POWDER 15GM BTL EXT SCH ×2 (08:41→14:46)
[2022-03-08] MEDS: ASPIRIN 81 MG ECTAB PO SCH (08:41)
[2022-03-08] MEDS: AMMONIUM LACTATE 12% LOTION 225 GM BTL EXT SCH (08:42)
[2022-03-08] MEDS: PREGABALIN 75 MG CAP PO SCH (08:45)
[2022-03-08] MEDS: INSULIN ASPART PER UNIT SC SCH ×2 (08:48→12:22)
[2022-03-08] MEDS ORDERED: MAGNESIUM SULFATE / D5W 1 GM/100 ML BAG IV ONE (08:49)
--- NOTE | 2022-03-08 12:18 | Pharmacy Report ---
Pharmacy Glycemic Short Note 2 - Date of Service March 08, 2022 - Glycemic Short BSG Results (Last 24 hours): 03/07/22 03/07/22 03/08/22 16:27 21:00 06:27 Glucose 83 POC Glucose 180 H 177 H 03/08/22 03/08/22 07:37 11:47 Glucose POC Glucose 89 206 H OUTPATIENT ANTIDIABETIC REGIMEN: * U-500, 300 Units TID with meals (confirmed with patient) * 8.1% 11/03/2019 - updated A1c ordered ASSESSMENT: 03/08/22 * BSGs yesterday were [phone] mg/dL. BSGs today are 89-206 mg/dL. * Patient received 285 units of insulin yesterday (180 units of basal and 105 units of bolus). This represents a 20% reduction in insulin from 03/06 to 03/07. * Fasting still trending down so will reduce basal by another 20% to 140 units daily (80 units in morning and 60 units in AM). * Continue Novolog as BSGs do remain steady. 03/07/22 * BSGs yesterday were [phone] mg/dL. Patient felt low at bedtime and was given treatment. * Patient received 354 units of insulin yesterday (220 units of basal and 134 units of bolus) * Will reduce basal by 20% due to feeling low at bedtime. Lower dose available if patient's BSGs trend lower tonight * Continue Novolog as this appears to be effective. 03/06/22 * Patient's BSGs yesterday were [phone]/138-96 mg/dL and overnight were 95- 160 mg/dL. * Today's BSGs are 216-299 mg/dL. Breakfast insulin was given at 1000 which may have affected lunch BSG. * During previous hospitalization, patient received roughly 200 units of NPH per day. This was in 2019. Per scale, patient received 120 units of NPH with breakfast. Will schedule 100 units with dinner to equal 220 units of NPH today. This is a 10% increase from yesterday. Titrate tomorrow as appropriate. * Tightened Novolog. Background * 61 year old female admitted with flu like symptoms, possible UTI, started on IV ceftriaxone, IV heparin drip. * Patient known to glycemic service from 2019, and had hypoglycemia when on U500 as inpatient. * Begin using NPH and NovoLog while inpatient like previous admission, so that insulin is more titratable, and consider switching to U500 if euglycemia is not achieved after 24 hours. * Patient received 10 units IV insulin in ER for BSG 431 at 0300. * BSG 416mg/dl when consult received, gave 103 units SQ Novolog at 1200- recheck 2 hours after = 278mg/dl - gave another 32 units correctional insulin. PLAN FOR INPATIENT GLYCEMIC CONTROL: * Basal insulin * NPH 80 units with breakfast and 60 units with dinner. Future doses TBD * Bolus insulin * NovoLog per scale ACHS or Q6hrs while NPO * Goal Range: Low 120 mg/dL - High 150 mg/dL * Correction Factor: 8 mg/dL/unit * Nutritional / Prandial insulin per carb ratio of 1 unit per 1.25 grams CHO consumed
--- NOTE | 2022-03-22 08:53 | Discharge Summary ---
Date of Service March 08, 2022 Admission HPI Per Admitting Provider CHIEF COMPLAINT: Chest pain, flu-like symptoms, UTI. HISTORY OF PRESENT ILLNESS: This is a 61-year-old female with a past medical history significant for type 2 diabetes, hyperlipidemia, hypothyroidism, obstructive sleep apnea on CPAP, diastolic CHF, history of aortic stenosis status post TAVR, hypertension, history of CAD s/p HOMER, LEYVA, chronic kidney disease stage III, history of cystitis, history of colon cancer, history of breast cancer, history of bilateral mastectomy, history of social anxiety disorder, history of medical marijuana use, history of schizoaffective disorder bipolar type. The patient says she lives alone at home, was having chest discomfort, abdominal pain that is why she called her son who drove her here in the hospital. Also, she recently had UTI but did not take her medications. The chest pain is resolved now. She has some abdominal discomfort. Has some dizziness earlier. No headache. Had some blurred visions, some runny nose, some sore throat, no cough. Denies any fevers. Was nauseous. No diarrhea or constipation. Has some burning micturition. She states she ambulates with a walker okay, eating okay. Patient is somewhat slow to answer. Admission Exam Per Admitting Provider GENERAL: The patient is obese, not in acute distress. She is somewhat slow to answer. VITAL SIGNS: Temperature 37.5, pulse 97, respiratory rate 19, blood pressure 169/72, oxygen 93% on 2 liters. HEENT: Pupils equal, round and reactive to light. Oral mucosa moist. NECK: No JVD. No neck masses. CARDIOVASCULAR: S1 and S2 heard. Regular rate and rhythm. No murmur, no gallop. RESPIRATORY SYSTEM: Normal AP diameter. No accessory muscle use. No wheezing, no crackles. ABDOMEN: Soft. Bowel sounds are present. Mild abdominal discomfort. No guarding or rigidity. CENTRAL NERVOUS SYSTEM: Cranial nerves II-XII grossly intact. Power 5/5 in all extremities. No pronator drift and coordination of movements normal. EXTREMITIES: Mild pedal edema, no erythema seen. Principal Diagnosis Chest pain UTI (urinary tract infection): Intertrigo: IDDM (insulin dependent diabetes mellitus): Hypokalemia: Hypomagnesemia: DANYELLE (obstructive sleep apnea): H/O aortic valve replacement: HTN (hypertension): Hypothyroidism: Depression with anxiety: Discharge Exam Constitutional: + well hydrated and + obese; no acute di stress Eyes: PERRL, conjunctivae normal, anicteric sclerae ENMT: external ear and nose normal, oropharynx normal Respiratory: normal respiratory effort, lungs clear to auscultation Cardiovascular: Rate/Rhythm: regular rate and regular rhythm S1 S2 Gastrointestinal (Abdomen): normal bowel sounds, soft, nontender, no hepatosplenomegaly Skin: Groin fold erythematous rash (L>R) improving Neurologic: PERRL, EOMI, accommodation nl, no face palsy, no dysarthria Psychiatric: A+Ox3, euthymic affect Discharge Data Allergies Allergy/AdvReac Type Severity Reaction Status Date / Time lisinopril Allergy Unknown unk Verified 07/03/18 07:56 Penicillins Allergy Unknown . Verified 07/03/18 07:56 adhesive tape Allergy CAN NOT Verified 05/02/19 17:36 TOLERATE BANDAIDS monosodium glutamate Allergy EDEMA OF Verified 05/02/19 17:36 HANDS & FEET Consultations 03/05/22 05:55 ED Decision to Admit Stat 03/05/22 10:52 Consult Cardiology Routine Ordered Studies 03/05/22 03:25 CT abd pelvis IV con only Urgent CT angio chest PE protocol Urgent CT head/brain wo con Urgent 03/05/22 09:19 US venous doppler LE BI Routine US venous doppler LE BI CLINICAL HISTORY: Bilateral leg pain COMPARISON: None available at the time of this dictation. TECHNIQUE: Bilateral lower extremity real-time compression venous ultrasound with Color Doppler imaging. Utilizing real-time ultrasonic imaging multiple real time high-resolution ultrasonic images with compression and noncompression maneuvers of the deep venous system in addition to color doppler imaging were performed from the common femoral vein through the proximal calf veins. FINDINGS: Currently there is normal compressibility of the deep venous system from the common femoral vein through the proximal calf veins. No current evidence of acute thrombosis is identified. Impression: No evidence of deep venous thrombus. ACT 112: Negative or not required by law. Electronically signed by: Reza Aguilar M.D. 03/05/2022 11:52 AM Dictated:03/05/22 1151 Transcribed: 03/05/[address] head/brain wo con CLINICAL HISTORY: confusion COMPARISON STUDY: 05/03/2019 CT DOSE: 2267.72 mGy.cm TECHNIQUE: Standard CT of the Brain was performed without IV contrast. A dose lowering technique was utilized adhering to the principles of ALARA. FINDINGS: Extraaxial space: There is no evidence for subdural hematoma. There are no extra-axial fluid collections. Ventricles and cisterns: The ventricles are mildly dilated bilaterally. There is no evidence for midline shift or mass effect. Parenchyma: There is no subarachnoid or intraparenchymal hemorrhage. There is no evidence for an acute infarct or cerebral edema. There is mild cerebral cortical atrophy and decreased attenuation in the periventricular white matter representing remote small vessel disease. There are no gross mass lesions. Osseous structures: There is no evidence for an acute fracture. The visualized paranasal sinuses are clear. The mastoid air cells are clear bilaterally. Soft tissues: There is no evidence for focal soft tissue swelling. IMPRESSION: 1. No acute intracerebral pathology. 2. Mild cerebral cortical atrophy and remote small vessel disease. ACT 112: Negative or not required by law. Electronically signed by: Reza Aguilar M.D. 03/05/2022 9:23 AM Dictated:03/05/22918 Transcribed: 03/05/22918 CT angio chest PE protocol CLINICAL HISTORY: Chest pain COMPARISON STUDY: Portable chest from 03/05/2022 and previous CTA chest from 07/18/2017 CT DOSE: TECHNIQUE: CT Angio of the chest was performed.followed by image post processing with coronal, and sagittal MIP reformats. Contrast Volume: Optiray 320, 120 ml FINDINGS: Vasculature: There is homogeneous perfusion of the pulmonary vasculature bilaterally. No intraluminal filling defects or evidence for pulmonary embolus is seen. Airway: The airway is clear. No endobronchial lesion is identified. Lungs: The lungs are clear of acute alveolar opacities, air bronchograms or pulmonary nodules. Pleura: There is no evidence for pleural effusion. There is no evidence for pneumothorax. Mediastinum: There is no evidence for pathologic adenopathy. The heart size is enlarged. The patient is status post aortic valve replacement. The thoracic aorta is within normal limits. There is no evidence for pericardial effusion. Osseous structures: There is no acute osseous pathology. Soft tissues: The patient is again status post left breast augmentation. Impression: 1. No CTA evidence for pulmonary embolus. 2. No acute chest disease. 3. Cardiomegaly status post aortic valve replacement. ACT 112: Negative or not required by law. Electronically signed by: Reza Aguilar M.D. 03/05/2022 10:45 AM Dictated:03/05/22 1038 Transcribed: 03/05/[address] abd pelvis IV con only CLINICAL HISTORY: R flank and lower abd pain COMPARISON STUDY: 05/03/2019 CT DOSE: TECHNIQUE: Standard CT of the Abdomen and Pelvis was performed with IV contrast. A dose lowering technique was utilized adhering to the principles of ALARA. Contrast Volume: Optiray 320, 120 ml. The patient did not receive oral contrast. FINDINGS: Abdominal cavity: There is no evidence for abdominal mass, adenopathy or ascites. Liver: There is homogeneous attenuation of the liver parenchyma. There is no evidence for enhancing mass lesion. There is again hepatomegaly with a sharply d efined cyst of the left lobe of the liver. Spleen: There is homogeneous attenuation of the splenic parenchyma. There is no enhancing mass lesion. There is again splenomegaly. Pancreas: There is homogeneous attenuation of the pancreatic parenchyma. There is no evidence for mass lesion or peripancreatic fluid collection. Gall Bladder: The gallbladder is contracted. Adrenal glands: The adrenal glands are normal in size and attenuation. There is no evidence for enhancing mass lesion. Kidneys: There is homogeneous attenuation of the renal parenchyma bilaterally. There is a 2 mm nonobstructing right renal calculus. There is no evidence for left renal calculus or hydronephrosis bilaterally. Sharply defined simple renal cysts are again seen. There is no evidence for enhancing mass. Bowel: There is again diastases of the anterior abdominal wall muscles with a large panniculus present involving the lower pelvic wall. The bowel loops are normally placed within the abdomen and pelvis without evidence for dilatation or obstruction. There is no evidence for mass lesion. There are no inflammatory changes present. There is no evidence for free air. Bladder: The bladder is within normal limits with no evidence for focal mass, calculus or diverticulum. There is present within the bladder which is most likely related to previous instrumentation. : There is no evidence for pelvic mass or adenopathy. There is no evidence for pelvic ascites. Vasculature: There is no evidence for aneurysmal dilatation of the abdominal aorta. Atherosclerotic calcification is present. Osseous structures: There is no acute osseous pathology. Degenerative changes are present within the spine. IMPRESSION: 1. No acute intra-abdominal or pelvic abnormality. 2. 2 mm nonobstructing right renal calculus. 3. There is again diastases of the anterior abdominal wall muscles with large panniculus present anteriorly. No bowel loop dilatation or obstruction. 4. There is again hepatosplenomegaly. 5. Renal cysts. 6. Additional nonacute findings are delineated above. ACT 112: Negative or not required by law. Electronically signed by: Reza Aguilar M.D. 03/05/2022 2:08 PM Dictated:03/05/22 1217 Transcribed: 03/05/22 1223 XR chest 1V portable CLINICAL HISTORY: SEPSIS. COMPARISON STUDY: 11/02/2021 TECHNIQUE: 1 view of the chest FINDINGS: Single frontal view of the chest demonstrates the heart size to be enlarged status post previous cardiothoracic surgery. The lungs are clear of alveolar opacities. There is no evidence for pleural effusion. There is no evidence for vascular congestion. There is no acute osseous pathology. The patient is also again status post previous breast surgery. IMPRESSION: 1. No acute cardiopulmonary disease. ACT 112: Negative or not required by law. Electronically signed by: Reza Aguilar M.D. 03/05/2022 9:03 AM Dictated:03/05/22 0901 Transcribed: 03/05/22 0901 Diabetes Follow up Diabetes Follow-up Needed for HgbA1c >9% Hospital Course (1) Chest pain: Chest pain Cards evaluation appreciated. Had mild troponin elevation. Cardiology could not get a good window on echo. Was started on colchicine per cardiology for possible pericarditis. Chest pain resolved so far Will complete heparin drip 48h today There was initial concern for possible PE on admission but this was ruled out by CT PE. Dopplers were also negative for DVT Patient CT abdomen did not show any acute abnormalities. Has hepatosplenomegaly. Lab work showed mildly elevated lactate which seem to have been since about the same in the past. (2) UTI (urinary tract infection): Patient has history of recurrent UTI. Daughter also reported patient was confused prior to admission Metabolic encephalopathy likely due to UTI, hyperglycemia UA on admission noted leukocyte esterase and more than 30 WBC. Continue ceftriaxone Urine culture growing pansensitive Klebsiella Plan to change to po antibiotics on discharge Patient will need urology follow-up outpatient for evaluation for recurrent UTI. (3) Intertrigo: Keep skin dry. Continue skin care and nystatin (4) IDDM (insulin dependent diabetes mellitus): According to outpatient pharmacy MTM note from 12/26/2021 on [facility], patient is currently on Ozempic 1 mg weekly, metformin 850 mg twice daily and Humulin U- 500 290 units breakfast, 300 units lunch and 240 units with dinner. Dose was adjusted to Humulin U-500 310U breakfast, 300U lunch and 220U dinner A1c 10.1 Pharm glycemic consult DM educator consult Continue insulin regimen for glycemic control (5) Hypokalemia: (6) Hypomagnesemia: K is 3.1 today Replete and monitor. (7) DANYELLE (obstructive sleep apnea): CPAP HS (8) H/O aortic valve replacement: (9) HTN (hypertension): Continue home meds (10) Hypothyroidism: Continue home meds (11) Depression with anxiety: Continue home meds DVT ppx- hep Awaiting PT/OT eval Total Time Total Time Spent Total Time Spent (In Minutes): 35 MINUTES Discharge Plan Discharge Items Patient Disposition: Home - Home Health Services Reason For Visit: FLU LIKE SYMPTOMS Discharge Diagnosis: Chest pain UTI (urinary tract infection): Intertrigo: IDDM (insulin dependent diabetes mellitus): Hypokalemia: Hypomagnesemia: DANYELLE (obstructive sleep apnea): H/O aortic valve replacement: HTN (hypertension): Hypothyroidism: Depression with anxiety: Activity: Resume your previous activity Non-emergency contact: Primary Care Provider and [employer] Call non-emergency contact if: you have any medication questions Follow-up/Referrals: Gregory Rausch MD [Primary Care Provider] - (Date & Time 03/13/2022 3:20 PM Provider Gregory Rausch MD Department [facility] ) Diet: Carb Consistent or DM2 Addtl Attending Provider Instructions: Follow up with your primary care provider 03/13/2022 3:20 PM Gregory Rausch MD Department [facility] Follow up with your cardiology in 3 to 4 weeks ( please call to schedule for the appointment ) Continue physical and occupational therapy with Home health Fall precaution Seek medical attention if symptoms worsening Continue monitor your blood sugar and follow a low concentration sweet intake Follow up with your provider to continue titrate your insulin Check BMP and Magnesium in 1 week to monitor your electrolytes Pending Studies at Discharge: No Stand-Alone Forms: My [employer], Smoking Cessation Medications and DC Order Prescriptions: New phenazopyridine [Pyridium] 100 mg Tablet 100 mg PO TID PRN (Reason: bladder spasms/dysuria) Qty: 15 RF: 0 colchicine [Colcrys] 0.6 mg Tablet 0.6 mg PO QAM 30 Days Qty: 30 RF: 0 Continued multivitamin Tablet 1 tab PO DAILY RF: 0 cyclobenzaprine 10 mg Tablet 10 mg PO HS PRN (Reason: MUSCLE SPASMS) RF: 0 atorvastatin [Lipitor] 40 mg tablet 40 mg PO DAILY RF: 0 ammonium lactate 12 % Lotion 1 applic TOPICAL BID RF: 0 metoprolol tartrate [Lopressor] 100 mg tablet 50 mg PO BID RF: 0 torsemide 10 mg tablet 20 mg PO DAILY RF: 0 melatonin 3 mg Tablet 15 mg PO HS RF: 0 clopidogrel [Plavix] 75 mg tablet 75 mg PO DAILY RF: 0 aspirin [Aspir-81] 81 mg Tablet,Delayed Release (Dr/Ec) 81 mg PO DAILY RF: 0 levothyroxine 75 mcg tablet 75 mcg PO DAILY RF: 0 meclizine 25 mg tablet 50 mg PO BID RF: 0 docusate sodium [Colace] 100 mg Capsule 100 mg PO DAILY RF: 0 vitamin B complex Tablet 1 tab PO DAILY RF: 0 nystatin [Nyamyc] 100,000 unit/gram powder 1 applic topical TID RF: 0 buspirone 15 mg tablet 15 mg PO BID RF: 0 valsartan [Diovan] 40 mg tablet 20 mg PO DAILY RF: 0 pregabalin [Lyrica] 75 mg capsule 75 mg PO BID RF: 0 omega 0-[id number]-fish oil [Fish Oil] 1,000 mg (120 mg-180 mg) Capsule 1 cap PO DAILY RF: 0 spironolactone 25 mg Tablet 25 mg PO DAILY RF: 0 Vraylar 3 mg capsule 3 mg PO DAILY RF: 0 Humulin R U-500 (Conc) Kwikpen 500 unit/mL (3 mL) insulin pen SUBCUT RF: 0 Discharge Orders: Discharge Order (Routine); Ordered 03/08/22 Ordered By: Kristy Reynoso Admission Data Admit Date/Time: 03/05/22 07:26 Attending Provider: Kristy Reynoso Admit Provider: Tommy London Primary Care Provider: Gregory Rausch Other Providers: Tommy London ; Feng Lantigua ; Padmini Crabtree I. ; [facility] Other Interventions: Discharge Summary Assessment (RN) Last Done: 03/08/22 16:35
== END 2022-03-08 18:11 | disposition home health service (06) | DRG 689 ==
LOC: ED 01:36 → SUATTDRO 07:26 → 2N 07:26

== ENCOUNTER 2023-02-13 13:55 | Inpatient (IN) ==
--- NOTE | 2023-02-13 14:06 | Emergency Department Note ---
Impression & Plan Acute hyperglycemia ED Provider Note NAME: BRIGIDA ROCA AGE: 62 SEX: F : 1960 ARRIVES VIA: Ambulance INFORMANT: Patient, ED PROVIDER(S): Darek Lees MD CHIEF COMPLAINT: Elevated blood sugar MEDICAL DECISION MAKING: Patient presents due to concern for elevated blood sugar. IV established blood work was obtained. The patient's blood work showed concern for blood sugar greater than 600. The patient was ordered 10 units of IV insulin. The patient was reassessed and did have a repeat BSG obtained which is 550. Given the significant elevation in blood sugar in addition to the fact the patient takes over 1000 units of U-500 daily I did speak with the on-call hospitalist service Dr. Nolan. After further discussion Dr. Nolan will admit the patient. I did order their the patient insulin drip. Patient was admitted to the medicine service. Patient's blood work shows pseudohyponatremia at 127. Creatinine 1.2 this is slightly worse than normal. The patient did receive some IV fluids. Chest x-ray is negative. Critical Care: I have personally spent 42 minutes of critical care time in direct management of this patient. This includes bedside care, interpretation of diagnostic studies, and testing, discussion with consultants, patient, and family members, and other require inpatient management activities. This 42 minutes is in excess of all separately billable procedures. Prior /Outside records reviewed: Reviewed the patient's most recent discharge summary from February 2022 patient had Bamat at that time for chest pain flulike symptoms and UTI. Patient does have a known history of type 2 diabetes hyperlipidemia hypothyroid disease DANYELLE on CPAP diastolic CHF status post TAVR, hypertension, history of CAD status post HOMER, LEYVA, CKD and schizoaffective disorder. Differential diagnosis: Infection, dehydration, metabolic abnormality, hypo/hyperglycemia, electrolyte disturbance, anemia, hypoxia, cardiac sources, intracerebral event, toxicologic, neurologic, as well as other pathologies. Diagnostics, as interpreted by me: ECG: Sinus with first-degree AV block, rate of 98, normal QRS, left axis deviation no ST elevations, T wave version aVL. Cardiac monitoring: An order was placed for continuous cardiac monitoring. The monitor shows a rate of 88 with sinus rhythm. Patient was placed on pulse oximetry Medical decision rules: None Imaging studies: See below I informally reviewed the patient's chest x-ray which shows no obvious pneumothorax. Sternotomy wires noted. HPI: Patient presents due to concern for elevated blood sugar. The patient states that she noted this morning it was greater than 500. Patient states that typically she will take 320 of U-500 in the morning 340 at lunch 340 in the evening and 70 at bedtime. Patient states that she did not take the 70 in the evening yesterday. Patient denies any recent changes in diet or increasing carbs. Patient denies any chest pain shortness of breath nausea vomiting. No fevers or chills. The patient has had an occasional cough but it is nonproductive. Patient denies any falls or trauma. The patient does not complain of any pain. The patient has noticed increased thirst and urination. PAST MEDICAL HISTORY: See Below PAST SURGICAL HISTORY: See Below SOCIAL HISTORY: See Below HOME MEDICATIONS: See Below ALLERGIES: See Below VITALS: See Below PHYSICAL EXAMINATION: GENERAL: NAD, wearing a mask, non-toxic. EYE EXAM: Normal conjunctiva. PERRL, no anisocoria and EOM's grossly intact w/o pain. NECK: Supple, no nuchal rigidity, no adenopathy, non-tender. No signs of meningismus. FROM of the neck with good chin to chest and neck extension. No stridor. LUNGS: Clear to auscultation. Normal chest wall mechanics. HEART: NSR, no MRG. ABDOMEN: Abdomen soft, non-tender, no masses, no rebound or guarding. BACK: No CVA TTP. SKIN: No rashes and no bruising. UPPER EXTREMITIES: Upper extremities are grossly normal. LOWER EXTREMITIES: Grossly normal, no edema. NEURO EXAM: A&O x3, cranial nerves II-XII grossly intact, normal speech, moves all 4 extremities. Past Med/Surg History Medical History (Updated 02/13/23 @ 21:55 by Darek Lees MD) Altered mental status Anxiety Aortic valvar stenosis Aortic valve stenosis Breast cancer Breast cancer, right breast 2007--Sx, chemo/radiation CAD (coronary artery disease) Cardiac murmur Follows with Dr. Muniz Cataract Cataract of both eyes Chest pain CKD (chronic kidney disease) stage 3, GFR 30-59 ml/min Colon cancer Colon cancer 2004--sx, no chemo or radiation Depression Depression with anxiety Diabetes mellitus, type 2 Dyslipidemia Heart failure History of removal of breast implant "Left " HTN (hypertension) Hyperlipidemia Hypertension Hypokalemia Hypomagnesemia Hypothyroidism Hypothyroidism IDDM (insulin dependent diabetes mellitus) Intertrigo Liver cirrhosis non-alcoholic On anticoagulant therapy DANYELLE (obstructive sleep apnea) Pleuritic chest pain Pulmonary embolism Sleep apnea Cpap Uterine cancer 2014--sx, no chemo/radiation UTI (urinary tract infection) Surgical History H/O aortic valve replacement #25 Manga aortic valve bioprosthesis placed in 2010, and 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 On 11/06/2017 she underwent transcatheter aortic valve replacement receiving a 26 mm Hernandez-Bing S3 prosthesis H/O aortic valve replacement 06/2017 @ [facility] [place] H/O bilateral mastectomy 01/2008--breast cancer H/O breast biopsy right--malignant H/O breast surgery L implant infected and was removed H/O colonoscopy History of appendectomy History of appendectomy History of bilateral tubal ligation History of bowel resection 2004 @ [facility] [place] d/t Colon Cancer History of breast reconstruction Bilt breast after masectomy History of cardiac cath x2--2010 @ [facility] 07/2017 @ [facility]-no stent, follows with Dr. Muniz History of carpal tunnel release bilt History of carpal tunnel surgery of left wrist TAVR 2017 History of carpal tunnel surgery of right wrist History of section x4 History of colonoscopy History of dilatation and curettage History of esophagogastroduodenoscopy (EGD) History of hysterectomy with bilateral oophorectomy History of open heart surgery 2011 @ [facility] [place] History of partial colectomy History of percutaneous coronary intervention prior to TAVR in order to protect her left main, she also had a 3.5 x 23 millimeter drug-eluting stent placed in the left main/LAD, which was expanded out into the aorta. History of total abdominal hysterectomy and bilateral salpingo-oophorectomy 2014 D/T uterine cancer Presence of stent in coronary artery Previous section S/P foot surgery, right "foot was widening" S/P mastectomy, bilateral S/P TAVR (transcatheter aortic valve replacement) Family History Grandmother Family history of diabetes mellitus maternal Family/Other Family history of diabetes mellitus paternal aunt Father , of premature CAD Coronary heart disease Mother , of premature CAD Coronary heart disease Social History Smoking Status: Never smoker Second Hand Exposure: Yes (PARENTS SMOKE); Do You Dip or Chew Tobacco: No; Hx Alcohol Use: Yes Alcohol type: wine Hx Substance Use: No Preferred Language: Greek Communication Ability: Effective Linen Tech Required: No Beliefs That Will Affect Care: None marital status: Single marital status details: has fiance Current Living Situation: Alone Current Living Situation Comment: lives in appartment Other Information That Helps Us Care for You: No Feels Safe at Home: Yes Safety Concerns: Feels Safe At This Time Assistive Devices: Cane, CPAP, Glasses and Walker Allergies Allergies Allergy/AdvReac Type Severity Reaction Status Date / Time lisinopril Allergy Unknown unk Verified 07/03/18 07:56 Penicillins Allergy Unknown . Verified 07/03/18 07:56 adhesive tape Allergy CAN NOT Verified 05/02/19 17:36 TOLERATE BANDAIDS monosodium glutamate Allergy EDEMA OF Verified 05/02/19 17:36 HANDS & FEET Home Meds Home Medications Medication Instructions Recorded Confirmed ammonium lactate 12 % lotion 1 applic topical BID 05/02/19 05/02/19 aspirin 81 mg tablet,delayed 81 mg PO DAILY 05/02/19 05/02/19 release (Aspir-) atorvastatin 40 mg tablet (Lipitor) 40 mg PO DAILY 05/02/19 05/02/19 buspirone 15 mg tablet 15 mg PO BID 05/02/19 05/02/19 clopidogrel 75 mg tablet (Plavix) 75 mg PO DAILY 05/02/19 05/02/19 cyclobenzaprine 10 mg tablet 10 mg PO HS PRN MUSCLE SPASMS 05/02/19 05/02/19 docusate sodium 100 mg capsule 100 mg PO DAILY 05/02/19 05/02/19 (Colace) levothyroxine 75 mcg tablet 75 mcg PO DAILY 05/02/19 05/02/19 meclizine 25 mg tablet 50 mg PO BID 05/02/19 05/02/19 melatonin 3 mg tablet 15 mg PO HS 05/02/19 05/02/19 metoprolol tartrate 100 mg tablet 50 mg PO BID 05/02/19 05/02/19 (Lopressor) multivitamin 1 tab PO DAILY 05/02/19 05/02/19 nystatin 100,000 unit/gram topical 1 applic topical TID 05/02/19 05/02/19 powder (Nyamyc) omega 4-zke-qoi-fish oil 1,000 mg 1 cap PO DAILY 05/02/19 05/02/19 (120 mg-180 mg) capsule (Fish Oil) pregabalin 75 mg capsule (Lyrica) 75 mg PO BID 05/02/19 05/02/19 torsemide 10 mg tablet 20 mg PO DAILY 05/02/19 05/02/19 valsartan 40 mg tablet (Diovan) 20 mg PO DAILY 05/02/19 05/02/19 vitamin B complex 1 tab PO DAILY 05/02/19 05/02/19 spironolactone 25 mg tablet 25 mg PO DAILY 05/05/19 05/05/19 cariprazine 3 mg capsule (Vraylar) 3 mg PO DAILY 03/05/22 03/05/22 insulin regular hum U-500 conc 500 unit subcut 03/08/22 unit/mL(3 mL) subcut pen (Humulin R U-500 (Conc) Insulin Kwikpen) Previous Rx's Medication Instructions Recorded phenazopyridine 100 mg tablet 100 mg PO TID PRN bladder 03/08/22 (Pyridium) spasms/dysuria #15 tabs Results & Data (ED) Vital Signs Vital Signs - 24 hr 02/13/23 14:10 02/13/23 14:26 02/13/23 14:25 Temperature 37 C Temperature Source Oral Pulse Rate 97 H 99 H 98 H Pulse Rate from SpO2 Sensor 99 H Pulse Rhythm Regular Pulse Strength Normal Respiratory Rate 16 16 Respiratory Effort / Characteristics Non-Labored Spontaneous Respiratory Depth Normal Respiratory Pattern Regular Blood Pressure 112/63 Blood Pressure Mean 79 Blood Pressure Position Lying Pulse Oximetry 94 94 Oxygen Delivery Method Room Air Sepsis Recent Fever Within 48 Hours No Sepsis New/Unexplained Change in Mental Status N/A Sepsis Action Taken by Nursing No Action Required 02/13/23 14:30 02/13/23 14:32 02/13/23 14:32 Temperature Temperature Source Pulse Rate 99 H 97 H Pulse Rate from SpO2 Sensor 94 H 95 H Pulse Rhythm Pulse Strength Respiratory Rate 20 23 Respiratory Effort / Characteristics Respiratory Depth Respiratory Pattern Blood Pressure 176/117 H Blood Pressure Mean 136 Blood Pressure Position Pulse Oximetry 91 93 Oxygen Delivery Method Sepsis Recent Fever Within 48 Hours Sepsis New/Unexplained Change in Mental Status Sepsis Action Taken by Nursing 02/13/23 14:40 02/13/23 14:57 02/13/23 15:00 Temperature Temperature Source Pulse Rate 99 H 102 H 98 H Pulse Rate from SpO2 Sensor 98 H 101 H 97 H Pulse Rhythm Pulse Strength Respiratory Rate 21 21 18 Respiratory Effort / Characteristics Respiratory Depth Respiratory Pattern Blood Pressure Blood Pressure Mean Blood Pressure Position Pulse Oximetry 96 94 95 Oxygen Delivery Method Sepsis Recent Fever Within 48 Hours Sepsis New/Unexplained Change in Mental Status Sepsis Action Taken by Nursing 02/13/23 16:39 02/13/23 15:10 02/13/23 15:20 Temperature Temperature Source Pulse Rate 98 H 92 H Pulse Rate from SpO2 Sensor 94 H 92 H Pulse Rhythm Pulse Strength Respiratory Rate 24 20 Respiratory Effort / Characteristics Non-Labored Spontaneous Respiratory Depth Normal Respiratory Pattern Blood Pressure Blood Pressure Mean Blood Pressure Position Pulse Oximetry 96 96 Oxygen Delivery Method Room Air Sepsis Recent Fever Within 48 Hours Sepsis New/Unexplained Change in Mental Status Sepsis Action Taken by Nursing 02/13/23 15:30 02/13/23 15:40 02/13/23 15:50 Temperature Temperature Source Pulse Rate 92 H 94 H 96 H Pulse Rate from SpO2 Sensor 93 H 93 H 95 H Pulse Rhythm Pulse Strength Respiratory Rate 21 24 18 Respiratory Effort / Characteristics Respiratory Depth Respiratory Pattern Blood Pressure Blood Pressure Mean Blood Pressure Position Pulse Oximetry 96 95 94 Oxygen Delivery Method Sepsis Recent Fever Within 48 Hours Sepsis New/Unexplained Change in Mental Status Sepsis Action Taken by Nursing 02/13/23 16:00 02/13/23 16:10 02/13/23 16:20 Temperature Temperature Source Pulse Rate 96 H 100 H 91 H Pulse Rate from SpO2 Sensor 88 99 H 90 Pulse Rhythm Pulse Strength Respiratory Rate 25 H 18 18 Respiratory Effort / Characteristics Respiratory Depth Respiratory Pattern Blood Pressure Blood Pressure Mean Blood Pressure Position Pulse Oximetry 94 94 94 Oxygen Delivery Method Sepsis Recent Fever Within 48 Hours Sepsis New/Unexplained Change in Mental Status Sepsis Action Taken by Nursing 02/13/23 16:30 02/13/23 18:00 02/13/23 16:40 Temperature Temperature Source Pulse Rate 91 H 92 H Pulse Rate from SpO2 Sensor 91 H 92 H Pulse Rhythm Pulse Strength Respiratory Rate 22 23 Respiratory Effort / Characteristics Non-Labored Spontaneous Respiratory Depth Normal Respiratory Pattern Regular Blood Pressure Blood Pressure Mean Blood Pressure Position Pulse Oximetry 94 94 Oxygen Delivery Method Room Air Sepsis Recent Fever Within 48 Hours Sepsis New/Unexplained Change in Mental Status Sepsis Action Taken by Nursing 02/13/23 16:50 02/13/23 17:53 02/13/23 18:00 Temperature Temperature Source Pulse Rate 93 H 98 H 96 H Pulse Rate from SpO2 Sensor Pulse Rhythm Pulse Strength Respiratory Rate 15 17 20 Respiratory Effort / Characteristics Respiratory Depth Respiratory Pattern Blood Pressure Blood Pressure Mean Blood Pressure Position Pulse Oximetry Oxygen Delivery Method Sepsis Recent Fever Within 48 Hours Sepsis New/Unexplained Change in Mental Status Sepsis Action Taken by Nursing 02/13/23 18:10 Temperature Temperature Source Pulse Rate 96 H Pulse Rate from SpO2 Sensor Pulse Rhythm Pulse Strength Respiratory Rate 21 Respiratory Effort / Characteristics Respiratory Depth Respiratory Pattern Blood Pressure Blood Pressure Mean Blood Pressure Position Pulse Oximetry Oxygen Delivery Method Sepsis Recent Fever Within 48 Hours Sepsis New/Unexplained Change in Mental Status Sepsis Action Taken by Care Home Medications Current Medication List: was personally reviewed by me Laboratory Data Attestation: I reviewed the patient's lab results. 02/13/23 14:05 02/13/23 14:05 Lab Results 02/13/23 02/13/23 02/13/23 Range/Units 14:05 14:05 14:05 WBC 8.80 (4.8-10.8) K/ul RBC 4.81 (4.20-5.40) M/uL Hgb 13.5 (12.0-16.0) g/dl Hct 38.6 (37.0-47.0) % MCV 80.2 (80.0-100.0) fL MCH 28.1 (25.0-34.0) pg MCHC 35.0 (32.0-36.0) g/dL RDW Std Deviation 42.8 (36.4-46.3) fL RDW Coeff of Valerio 14.8 H (11.5-14.5) % Plt Count 132 (130-400) K/uL MPV 11.6 (9.4-12.4) fL Immature Gran % (Auto) 0.5 % Neut % (Auto) 50.4 % Lymph % (Auto) 41.3 % [place] % (Auto) 6.6 % Eos % (Auto) 0.7 % Baso % (Auto) 0.5 % Neut # (Auto) 4.45 (1.40-6.50) K/uL Lymph # (Auto) 3.63 H (1.2-3.4) K/uL [place] # (Auto) 0.58 (0.11-0.59) K/uL Eos # (Auto) 0.06 (0-0.50) K/uL Baso # (Auto) 0.04 (0-0.2) K/uL Immature Gran # (Auto) 0.04 (0.01-0.20) K/uL Sodium 127 L (136-145) mmol/L Potassium 4.0 (3.5-5.1) mmol/L Chloride 91 L (98-107) mmol/L Carbon Dioxide 25 (21-32) mmol/L Anion Gap 11 (3-11) BUN 31 H (6-23) mg/dl Creatinine 1.25 H (0.6-1.2) mg/dl Est Cr Clr Drug Dosing 44.3 ml/min Est GFR ( Amer) 52.6 ml/min Est GFR (Non-Af Amer) 45.4 ml/min BUN/Creatinine Ratio 24.8 H (10-20) Glucose 654 H* (70-99(Fasting)) mg/dl POC Glucose (70-99) mg/dl Calcium 9.8 (8.6-10.3) mg/dl Total Bilirubin 0.8 (0.2-1.0) mg/dl AST 10 L (13-39) U/L ALT 9 (7-52) U/L Alkaline Phosphatase 79 (34-104) U/L Total Protein 7.3 (6.0-8.3) gm/dl Albumin 4.0 (3.4-5.0) gm/dl Globulin 3.3 (2.5-4.0) gm/dl Albumin/Globulin Ratio 1.2 (0.9-2) TSH 2.053 (0.300-4.500) uIu/ml Urine Color Urine Appearance (Clear) Urine pH (4.5-7.5) Ur Specific [place] (1.000-1.030) Urine Protein (Negative) Urine Glucose (UA) (Negative) Urine Ketones (Negative) Urine Blood (Negative) Urine Nitrite (Negative) Urine Bilirubin (Negative) Urine Urobilinogen (Negative) Ur Leukocyte Esterase (Negative) SARS-CoV-2, RNA, NAAT (NEGATIVE) 02/13/23 02/13/23 02/13/23 Range/Units 14:48 14:55 16:01 WBC (4.8-10.8) K/ul RBC (4.20-5.40) M/uL Hgb (12.0-16.0) g/dl Hct (37.0-47.0) % MCV (80.0-100.0) fL MCH (25.0-34.0) pg MCHC (32.0-36.0) g/dL RDW Std Deviation (36.4-46.3) fL RDW Coeff of Valerio (11.5-14.5) % Plt Count (130-400) K/uL MPV (9.4-12.4) fL Immature Gran % (Auto) % Neut % (Auto) % Lymph % (Auto) % [place] % (Auto) % Eos % (Auto) % Baso % (Auto) % Neut # (Auto) (1.40-6.50) K/uL Lymph # (Auto) (1.2-3.4) K/uL [place] # (Auto) (0.11-0.59) K/uL Eos # (Auto) (0-0.50) K/uL Baso # (Auto) (0-0.2) K/uL Immature Gran # (Auto) (0.01-0.20) K/uL Sodium (136-145) mmol/L Potassium (3.5-5.1) mmol/L Chloride (98-107) mmol/L Carbon Dioxide (21-32) mmol/L Anion Gap (3-11) BUN (6-23) mg/dl Creatinine (0.6-1.2) mg/dl Est Cr Clr Drug Dosing ml/min Est GFR ( Amer) ml/min Est GFR (Non-Af Amer) ml/min BUN/Creatinine Ratio (10-20) Glucose (70-99(Fasting)) mg/dl POC Glucose 581 H* 550 H* (70-99) mg/dl Calcium (8.6-10.3) mg/dl Total Bilirubin (0.2-1.0) mg/dl AST (13-39) U/L ALT (7-52) U/L Alkaline Phosphatase (34-104) U/L Total Protein (6.0-8.3) gm/dl Albumin (3.4-5.0) gm/dl Globulin (2.5-4.0) gm/dl Albumin/Globulin Ratio (0.9-2) TSH (0.300-4.500) uIu/ml Urine Color Yellow Urine Appearance Clear (Clear) Urine pH 6.0 (4.5-7.5) Ur Specific [place] 1.027 (1.000-1.030) Urine Protein Negative (Negative) Urine Glucose (UA) 3+ H (Negative) Urine Ketones Negative (Negative) Urine Blood Negative (Negative) Urine Nitrite Negative (Negative) Urine Bilirubin Negative (Negative) Urine Urobilinogen Negative (Negative) Ur Leukocyte Esterase Negative (Negative) SARS-CoV-2, RNA, NAAT (NEGATIVE) 02/13/23 02/13/23 02/13/23 Range/Units 17:07 17:53 18:00 WBC (4.8-10.8) K/ul RBC (4.20-5.40) M/uL Hgb (12.0-16.0) g/dl Hct (37.0-47.0) % MCV (80.0-100.0) fL MCH (25.0-34.0) pg MCHC (32.0-36.0) g/dL RDW Std Deviation (36.4-46.3) fL RDW Coeff of Valerio (11.5-14.5) % Plt Count (130-400) K/uL MPV (9.4-12.4) fL Immature Gran % (Auto) % Neut % (Auto) % Lymph % (Auto) % [place] % (Auto) % Eos % (Auto) % Baso % (Auto) % Neut # (Auto) (1.40-6.50) K/uL Lymph # (Auto) (1.2-3.4) K/uL [place] # (Auto) (0.11-0.59) K/uL Eos # (Auto) (0-0.50) K/uL Baso # (Auto) (0-0.2) K/uL Immature Gran # (Auto) (0.01-0.20) K/uL Sodium (136-145) mmol/L Potassium (3.5-5.1) mmol/L Chloride (98-107) mmol/L Carbon Dioxide (21-32) mmol/L Anion Gap (3-11) BUN (6-23) mg/dl Creatinine (0.6-1.2) mg/dl Est Cr Clr Drug Dosing ml/min Est GFR ( Amer) ml/min Est GFR (Non-Af Amer) ml/min BUN/Creatinine Ratio (10-20) Glucose (70-99(Fasting)) mg/dl POC Glucose 415 H* 391 H* (70-99) mg/dl Calcium (8.6-10.3) mg/dl Total Bilirubin (0.2-1.0) mg/dl AST (13-39) U/L ALT (7-52) U/L Alkaline Phosphatase (34-104) U/L Total Protein (6.0-8.3) gm/dl Albumin (3.4-5.0) gm/dl Globulin (2.5-4.0) gm/dl Albumin/Globulin Ratio (0.9-2) TSH (0.300-4.500) uIu/ml Urine Color Urine Appearance (Clear) Urine pH (4.5-7.5) Ur Specific [place] (1.000-1.030) Urine Protein (Negative) Urine Glucose (UA) (Negative) Urine Ketones (Negative) Urine Blood (Negative) Urine Nitrite (Negative) Urine Bilirubin (Negative) Urine Urobilinogen (Negative) Ur Leukocyte Esterase (Negative) SARS-CoV-2, RNA, NAAT NEGATIVE (NEGATIVE) Administered Medications Insulin Human Regular 250 (units/ Sodium Chloride) 250 mls @ 2.2 mls/hr IV .Q24H [facility]; Protocol Stop: 03/15/23 16:59 Last Titration: 02/13/23 20:51 Dose: 3.1 units/hr, 3.1 mls/hr Documented By: ASM Co-signed By: BRYON Titration: 02/13/23 19:12 Dose: 2.6 units/hr, 2.6 mls/hr Documented By: COCO Co-signed By: ML Admin: 02/13/23 18:03 Dose: 2.2 units/hr, 2.2 mls/hr Documented By: KMO Co-signed By: NMS Discontinued Medications Sodium Chloride (Nss 1000ml) 1,000 mls @ 999 mls/hr IV .Q1H1M EVGENY Stop: 02/13/23 15:30 Last Infusion: 02/13/23 16:22 Dose: 0 mls/hr Documented By: Admin: 02/13/23 14:15 Dose: 999 mls/hr Documented By: ANDREA Insulin Human Regular (Novolin-R Insulin Per Unit Charge) 10 units IV NOW STA Stop: 02/13/23 15:10 Last Admin: 02/13/23 15:28 Dose: 10 units Documented By: ANGE Co-signed By: ANDREA Imaging Data Radiologist's Impression: Chest X-Ray 02/13/23 14:29 XR chest 1V portable HISTORY: cough COMPARISON: Chest 03/05/2022. FINDINGS: No pneumothorax. No pleural effusions. The lungs are clear. The cardiac silhouette is borderline enlarged. Poststernotomy changes and a cardiac valve prosthesis are again noted. There is a left breast implant again noted. IMPRESSION: No significant change compared to the prior study. No acute process. ACT 112: Negative or not required by law. Electronically signed by: German Del Cid M.D. 02/13/2023 3:19 PM Discharge Plan Visit Data Chief Complaint: Hyperglycemia Stated Complaint: HYPERGLYCEMIA ED Provider: Darek Lees Discharge Problem: Acute hyperglycemia Patient Disposition: Admitted As Inpatient
[2023-02-13] MEDS ORDERED: SODIUM CHLORIDE 0.9% 1000ML 1,000 ML IV SCH (14:30)
[2023-02-13 14:46] LABS: Basophils # (auto) 0.04 K/uL (0-0.2); Basophils % (auto) 0.5 %; Eosinophils # (auto) 0.06 K/uL (0-0.50); Eosinophils % (auto) 0.7 %; Hematocrit (blood only) 38.6 % (37.0-47.0); Hemoglobin 13.5 g/dl (12.0-16.0); Immature Granulocytes # (auto) 0.04 K/uL (0.01-0.20); Immature Granulocytes % (auto) 0.5 %; Lymphocytes # (auto) 3.63 K/uL (1.2-3.4); Lymphocytes % (auto) 41.3 %; Mean Corpuscular Hemoglobin 28.1 pg (25.0-34.0); Mean Corpuscular Volume 80.2 fL (80.0-100.0); Mean Platelet Volume 11.6 fL (9.4-12.4); Monocytes # (auto) 0.58 K/uL (0.11-0.59); Monocytes % (auto) 6.6 %; Neutrophils # (auto) 4.45 K/uL (1.40-6.50); Neutrophils % (auto) 50.4 %; Platelet Count 132 K/uL (130-400); RDW Coefficient of Variation 14.8 % (11.5-14.5); RDW Standard Deviation 42.8 fL (36.4-46.3); Red Blood Count 4.81 M/uL (4.20-5.40)
[2023-02-13 15:01] LABS: Bilirubin,Total 0.8 mg/dl (0.2-1.0); Calcium 9.8 mg/dl (8.6-10.3)
[2023-02-13 15:09] LABS: Appearance Urine Clear (Clear); Bilirubin Urine Negative (Negative); Blood Urine Negative (Negative); Color Urine Yellow; Glucose Urine UA 3+ (Negative); Ketones Urine Negative (Negative); Leukocyte Esterase Urine Negative (Negative); Nitrite Urine Negative (Negative); Protein Urine Negative (Negative); Specific Gravity Urine 1.027 (1.000-1.030); Urobilinogen Urine Negative (Negative)
[2023-02-13] MEDS ORDERED: NovoLIN-R INSULIN PER UNIT CHARGE IV STA (15:09)
[2023-02-13 15:13] LABS: Albumin Globulin Ratio 1.2 (0.9-2); BUN Creatinine Ratio 24.8 (10-20); Creatinine Clr Calc Pharmacy 44.3 ml/min; Est GFR (African American) 52.6 ml/min; Est GFR (Non-African American) 45.4 ml/min; Globulin 3.3 gm/dl (2.5-4.0); Total Protein 7.3 gm/dl (6.0-8.3)
--- NOTE | 2023-02-13 15:15 | Electrocardiogram Report ---
Test Reason : Blood Pressure : / mmHG Vent. Rate : 098 BPM Atrial Rate : 098 BPM P-R Int : 202 ms QRS Dur : 090 ms QT Int : 364 ms P-R-T Axes : 074 -47 087 degrees QTc Int : 464 ms Normal sinus rhythm Left axis deviation Minimal voltage criteria for LVH, may be normal variant Abnormal ECG When compared with ECG of 07-MAR-2022 06:21, No significant change was found Confirmed by Flo Cohen ([id number]) on 02/13/2023 3:15:31 PM Referred By: REFERRED SELF Confirmed By:Flo Cohen
--- NOTE | 2023-02-13 15:20 | XRay Report ---
XR chest 1V portable HISTORY: cough COMPARISON: Chest 03/05/2022. FINDINGS: No pneumothorax. No pleural effusions. The lungs are clear. The cardiac silhouette is borde rline enlarged. Poststernotomy changes and a cardiac valve prosthesis are again noted. There is a lef t breast implant again noted. IMPRESSION: No significant change compared to the prior study. No acute process. ACT 112: Negative or not required by law. Electronically signed by: German Del Cid M.D. 02/13/2023 3:19 PM
[2023-02-13] MEDS ORDERED: STAT IV STA (16:51)
[2023-02-13] MEDS ORDERED: MODERATE STRESS LEVEL ONE (16:51)
[2023-02-13] MEDS ORDERED: INSULIN PROTOCOL GOAL RANGE ONE (16:51)
[2023-02-13] MEDS ORDERED: INSULIN REGULAR 250 UNITS in SODIUM CHLORIDE 0.9% 247.5 ML IV SCH (17:00)
--- NOTE | 2023-02-13 18:00 | History & Physical Report ---
Date of Service February 13, 2023 Assessment & Plan (1) Hyperglycemia due to type 2 diabetes mellitus: Plan: -Patient is on Humulin-R 500 320 units breakfast, 340 units lunch, 70 units for dinner. Despite this, her glucose is in 700-800s range. She likely has insulin resistance and her diet recently changed. -While here, safest will be for her to be on insulin drip and convert her back to SQ insulin once hyperglycemia resolves -Will call her small equipment operator tomorrow to discuss case further -consult RD -check TSH and HA1c with AM labs Plan Medication Reconciliation -Review and order home medications once med list has been updated by tech. DVT ppx SQ lovenox Code status Full Observation for now History of Present Illness Chief Complaint: high blood glucose Primary Care Provider: Gregory Rausch MD Ms Jovita Rose is a 62 year old female with history significant for type 2 insulin dependent diabetes who is on Humulin U-500 (320 units morning, 340 units afternoon and 70 units evening) was sent in today after her outpatient labwork revealed a glucose level in 700s. Patient reports that his home glucose meter has been showing levels consistently in the 700-800s for the past 1 month. During this time, her daughter had recently bought her "mom's meals" which are premade dinners and this may be causing her glucose to become uncontrolled. Despite glucose readings in the 700-800s, she did not contact her Project Manager Retail or her PCP's office for further instructions. When asked why she didn't contact her small equipment operator, she reports "because they are located in [place] and I can't get there". She reports increased thirst and urination. Denies other complaints. Allergies Allergy/AdvReac Type Severity Reaction Status Date / Time lisinopril Allergy Unknown unk Verified 07/03/18 07:56 Penicillins Allergy Unknown . Verified 07/03/18 07:56 adhesive tape Allergy CAN NOT Verified 05/02/19 17:36 TOLERATE BANDAIDS monosodium glutamate Allergy EDEMA OF Verified 05/02/19 17:36 HANDS & FEET Home Medications Medication Instructions Recorded Confirmed Type ammonium lactate 12 % lotion 1 applic topical BID 05/02/19 05/02/19 History aspirin 81 mg tablet,delayed 81 mg PO DAILY 05/02/19 05/02/19 History release (Aspir-) atorvastatin 40 mg tablet (Lipitor) 40 mg PO DAILY 05/02/19 05/02/19 History buspirone 15 mg tablet 15 mg PO BID 05/02/19 05/02/19 History clopidogrel 75 mg tablet (Plavix) 75 mg PO DAILY 05/02/19 05/02/19 History cyclobenzaprine 10 mg tablet 10 mg PO HS PRN MUSCLE SPASMS 05/02/19 05/02/19 History docusate sodium 100 mg capsule 100 mg PO DAILY 05/02/19 05/02/19 History (Colace) levothyroxine 75 mcg tablet 75 mcg PO DAILY 05/02/19 05/02/19 History meclizine 25 mg tablet 50 mg PO BID 05/02/19 05/02/19 History melatonin 3 mg tablet 15 mg PO HS 05/02/19 05/02/19 History metoprolol tartrate 100 mg tablet 50 mg PO BID 05/02/19 05/02/19 History (Lopressor) multivitamin 1 tab PO DAILY 05/02/19 05/02/19 History nystatin 100,000 unit/gram topical 1 applic topical TID 05/02/19 05/02/19 History powder (Nyamyc) omega 0-kod-owp-fish oil 1,000 mg 1 cap PO DAILY 05/02/19 05/02/19 History (120 mg-180 mg) capsule (Fish Oil) pregabalin 75 mg capsule (Lyrica) 75 mg PO BID 05/02/19 05/02/19 History torsemide 10 mg tablet 20 mg PO DAILY 05/02/19 05/02/19 History valsartan 40 mg tablet (Diovan) 20 mg PO DAILY 05/02/19 05/02/19 History vitamin B complex 1 tab PO DAILY 05/02/19 05/02/19 History spironolactone 25 mg tablet 25 mg PO DAILY 05/05/19 05/05/19 History cariprazine 3 mg capsule (Vraylar) 3 mg PO DAILY 03/05/22 03/05/22 History insulin regular hum U-500 conc 500 unit subcut 03/08/22 History unit/mL(3 mL) subcut pen (Humulin R U-500 (Conc) Insulin Kwikpen) phenazopyridine 100 mg tablet 100 mg PO TID PRN bladder 03/08/22 Rx (Pyridium) spasms/dysuria #15 tabs Past Med/Surg History Medical History (Updated 02/13/23 @ 18:04 by Alicia Nolan MD) Altered mental status Anxiety Aortic valvar stenosis Aortic valve stenosis Breast cancer Breast cancer, right breast 2007--Sx, chemo/radiation CAD (coronary artery disease) Cardiac murmur Follows with Dr. Muniz Cataract Cataract of both eyes Chest pain CKD (chronic kidney disease) stage 3, GFR 30-59 ml/min Colon cancer Colon cancer 2004--sx, no chemo or radiation Depression Depression with anxiety Diabetes mellitus, type 2 Dyslipidemia Heart failure History of removal of breast implant "Left " HTN (hypertension) Hyperlipidemia Hypertension Hypokalemia Hypomagnesemia Hypothyroidism Hypothyroidism IDDM (insulin dependent diabetes mellitus) Intertrigo Liver cirrhosis non-alcoholic On anticoagulant therapy DANYELLE (obstructive sleep apnea) Pleuritic chest pain Pulmonary embolism Sleep apnea Cpap Uterine cancer 2014--sx, no chemo/radiation UTI (urinary tract infection) Surgical History H/O aortic valve replacement #25 Manga aortic valve bioprosthesis placed in 2010, and 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 On 11/06/2017 she underwent transcatheter aortic valve replacement receiving a 26 mm Hernandez-Bing S3 prosthesis H/O aortic valve replacement 06/2017 @ [facility] H/O bilateral mastectomy 01/2008--breast cancer H/O breast biopsy right--malignant H/O breast surgery L implant infected and was removed H/O colonoscopy History of appendectomy History of appendectomy History of bilateral tubal ligation History of bowel resection 2004 @ [facility] d/t Colon Cancer History of breast reconstruction Bilt breast after masectomy History of cardiac cath x2--2010 @ [facility] [address] 07/2017 @ [facility]-no stent, follows with Dr. Muniz History of carpal tunnel release bilt History of carpal tunnel surgery of left wrist TAVR 2017 History of carpal tunnel surgery of right wrist History of section x4 History of colonoscopy History of dilatation and curettage History of esophagogastroduodenoscopy (EGD) History of hysterectomy with bilateral oophorectomy History of open heart surgery 2011 @ [facility] History of partial colectomy History of percutaneous coronary intervention prior to TAVR in order to protect her left main, she also had a 3.5 x 23 millimeter drug-eluting stent placed in the left main/LAD, which was expanded out into the aorta. History of total abdominal hysterectomy and bilateral salpingo-oophorectomy 2014 D/T uterine cancer Presence of stent in coronary artery Previous section S/P foot surgery, right "foot was widening" S/P mastectomy, bilateral S/P TAVR (transcatheter aortic valve replacement) Family History Grandmother Family history of diabetes mellitus maternal Family/Other Family history of diabetes mellitus paternal aunt Father , of premature CAD Coronary heart disease Mother , of premature CAD Coronary heart disease Social History Smoking Status: Never smoker Second Hand Exposure: Yes (PARENTS SMOKE); Do You Dip or Chew Tobacco: No; Hx Alcohol Use: No Hx Substance Use: No Preferred Language: Maltese Communication Ability: Effective Motor And Generator Assembler Required: No Beliefs That Will Affect Care: None marital status: Single marital status details: has fiance Current Living Situation: Alone Current Living Situation Comment: lives in apparent Feels Safe at Home: Yes Assistive Devices: Cane and Walker Review of Systems Review of Systems: As above in HPI, remaining ROS otherwise negative Physical Exam Physical Exam: No acute distress, non toxic, pleasant, poor insight ENMT: Head is normocephalic, atraumatic, mucous membrane dry Respiratory: Breathing comfortably on room air, no wheezing/rhonchi/rales Cardiovascular: Regular rate and rhythm, no murmurs/rubs/gallops Gastrointestinal (Abdomen): soft, non tender, non distended Musculoskeletal: No edema, no cyanosis or clubbing Skin: No rash, no redness, no ulcer noted on exposed skin Neurologic: awake, alert, spontaneously moving extremities Results & Data Results & Data Vital Signs (Past 12 Hours) Vital Signs Temp Pulse Resp BP Pulse Ox O2 Del Method 02/13/23 16:30 91 H 22 94 02/13/23 16:20 91 H 18 94 02/13/23 16:10 100 H 18 94 02/13/23 16:00 96 H 25 H 94 02/13/23 15:50 96 H 18 94 02/13/23 15:40 94 H 24 95 02/13/23 15:30 92 H 21 96 02/13/23 15:20 92 H 20 96 02/13/23 15:10 98 H 24 96 02/13/23 16:39 Room Air 02/13/23 15:00 98 H 18 95 02/13/23 14:57 102 H 21 94 02/13/23 14:40 99 H 21 96 02/13/23 14:32 97 H 23 93 02/13/23 14:32 176/117 H 02/13/23 14:30 99 H 20 91 02/13/23 14:25 98 H 16 94 02/13/23 14:26 99 H 02/13/23 14:10 37 C 97 H 16 112/63 94 Room Air
[2023-02-13] MEDS ORDERED: ACETAMINOPHEN 325 MG TAB PO PRN (21:45)
[2023-02-13] MEDS ORDERED: POLYETHYLENE (MIRALAX) 17 GM PACK PO PRN (21:45)
[2023-02-13] MEDS ORDERED: ONDANSETRON INJ 2 MG/ML 2 ML VIAL IV PRN (21:45)
[2023-02-13] MEDS ORDERED: PHARMACY GLYCEMIC MGMT CONSULT PRN (21:50)
[2023-02-13] MEDS ORDERED: CARBOHYDRATES FOR HYPOGLYCEMIA PO PRN (23:00)
[2023-02-13] MEDS ORDERED: GLUCAGON FOR INJ 1 MG VIAL IM PRN (23:00)
[2023-02-13] MEDS ORDERED: GLUCOSE 40% GEL 15 GM TUBE PO PRN (23:00)
[2023-02-13] MEDS ORDERED: DEXTROSE 50% 50 ML SYRINGE IV PRN (23:00)
[2023-02-13] MEDS ORDERED: GLUCOSE 10 TAB/TUBE PO PRN (23:00)
[2023-02-13] MEDS: INSULIN ASPART PER UNIT CHARGE SC SCH (23:01)
[2023-02-13] MEDS: SODIUM CHLORIDE 0.9% 1000ML 1,000 ML IV SCH (23:03)
[2023-02-13] MEDS: ENOXAPARIN INJ 40 MG/0.4 ML SYR SQ SCH (23:54)
[2023-02-14] MEDS ORDERED: INSULIN HUMAN NPH SC ONE ×2 (08:00→16:30)
[2023-02-14 08:02] LABS: Hematocrit (blood only) 35.9 % (37.0-47.0); Hemoglobin 12.4 g/dl (12.0-16.0); Mean Corpuscular Hemoglobin 28.4 pg (25.0-34.0); Mean Corpuscular Hgb Conc 34.5 g/dL (32.0-36.0); Mean Corpuscular Volume 82.2 fL (80.0-100.0); Mean Platelet Volume 11.3 fL (9.4-12.4); Platelet Count 109 K/uL (130-400); RDW Coefficient of Variation 14.6 % (11.5-14.5); RDW Standard Deviation 43.1 fL (36.4-46.3); Red Blood Count 4.37 M/uL (4.20-5.40); White Blood Count 7.83 K/ul (4.8-10.8)
[2023-02-14 08:19] LABS: Creatinine Clr Calc Pharmacy 67.9 ml/min; Est GFR (Non-African American) 76.8 ml/min; Magnesium 1.6 mg/dl (1.7-2.4); Potassium 3.5 mmol/L (3.5-5.1)
[2023-02-14 08:32] LABS: Estimated Average Glucose 217 mg/dl; Hemoglobin A1C 9.2 % (4.5-5.6)
[2023-02-14] MEDS ORDERED: MECLIZINE HCL 25 MG TAB PO PRN (08:33)
[2023-02-14] MEDS ORDERED: METOPROLOL TARTRATE 50 MG TAB PO SCH (09:00)
[2023-02-14] MEDS: SODIUM CHLORIDE 0.9% 1000ML 1,000 ML IV SCH ×2 (09:28→17:08)
[2023-02-14] MEDS: SPIRONOLACTONE 25 MG TAB PO SCH (09:28)
[2023-02-14] MEDS: CLOPIDOGREL BISULFATE 75 MG TAB PO SCH (09:29)
[2023-02-14] MEDS: ATORVASTATIN 40 MG TAB PO SCH (09:30)
[2023-02-14] MEDS: INSULIN ASPART PER UNIT CHARGE SC SCH ×4 (09:32→21:19)
[2023-02-14] MEDS ORDERED: MAGNESIUM SULFATE / D5W 1 GM/100 ML BAG IV ONE (09:35)
[2023-02-14] MEDS: VALSARTAN 80 MG TAB PO SCH (09:35)
[2023-02-14] MEDS: busPIRone 15 MG TAB PO SCH ×2 (09:37→21:20)
[2023-02-14] MEDS: LEVOTHYROXINE SODIUM 75 MCG TABLET PO SCH (09:37)
[2023-02-14] MEDS: PREGABALIN 75 MG CAP PO SCH ×2 (10:12→21:19)
[2023-02-14] MEDS: POT PHOSPHATE MONOBASIC W/ SOD TAB PO SCH ×3 (12:40→21:20)
--- NOTE | 2023-02-14 14:24 | Pharmacy Report ---
Pharmacy Glycemic Short Note 2 - Date of Service February 14, 2023 - Glycemic Short BSG Results (Last 24 hours): 02/13/23 02/13/23 02/13/23 14:05 14:48 16:01 Glucose 654 H* POC Glucose 581 H* 550 H* 02/13/23 02/13/23 02/13/23 17:07 18:00 19:01 Glucose POC Glucose 415 H* 391 H* 365 H* 02/13/23 02/13/23 02/13/23 20:48 21:47 22:50 Glucose POC Glucose 286 H 266 H 252 H 02/13/23 02/14/23 02/14/23 23:52 00:55 01:51 Glucose POC Glucose 201 H 185 H 175 H 02/14/23 02/14/23 02/14/23 02:51 04:02 04:54 Glucose POC Glucose 180 H 184 H 180 H 02/14/23 02/14/23 02/14/23 06:02 07:11 07:30 Glucose 141 H POC Glucose 188 H 153 H 02/14/23 02/14/23 02/14/23 08:07 09:20 10:25 Glucose POC Glucose 135 H 189 H 268 H 02/14/23 02/14/23 02/14/23 11:39 12:31 13:32 Glucose POC Glucose 223 H 238 H 249 H OUTPATIENT ANTIDIABETIC REGIMEN: * U-500:: 340 units in AM, 340 units in afternoon, 70 units in evening * HbA1C = 9.2% (02/14/23) ASSESSMENT: * Ms Rose is a 62 y/o F with a PMH of T2DM on U-500 who is admitted with hyperglycemia. * Patient was initially started on a insulin infusion. * Based upon previous records, patient typically required NPH inhouse. The patient was initiated on higher doses of NPH (~140 -200 units/day), but these doses were progressively being decreased during hospitalization. Since patient was NPO this AM and U-500 doses are lower than previously, will start with lower dose of NPH at 60 units. A second dose of 60 units will be given with dinner (for total of 120 units today). Titration available for tomorrow with a 20% increase. * Novolog with CR of 2 while patient is on insulin infusion. Will establish tight CF whenever transitioned off insulin infusion. PLAN FOR INPATIENT GLYCEMIC CONTROL: * Basal insulin * NPH 60 units SQ BID17 for today then 60-80 units BID17 * Bolus insulin * NovoLog per scale ACHS or Q6hrs while NPO * Goal Range: Low 110 mg/dL - High 140 mg/dL * Correction Factor: 8 mg/dL/unit * Nutritional / Prandial insulin per carb ratio of 1 unit per 2 grams CHO consumed
[2023-02-14] MEDS ORDERED: traZODone HCL 100 MG TAB PO PRN (15:37)
--- NOTE | 2023-02-14 15:49 | Hospitalist Progress Note ---
Date of Service February 14, 2023 Assessment & Plan (1) Hyperglycemia due to type 2 diabetes mellitus: Plan: -Patient is on Humulin-R 500 320 units breakfast, 340 units lunch, 70 units for dinner. Despite this, her glucose is in 700-800s range. Uncontrolled DM II HbA1C:9.2 Non Compliance (Patient admits to being forgetful) No signs of ketoacidosis Continue insulin per protocol ict educator consulted Monitor blood glucose levels Appreciate glycemic pharmacist help Needs follow-up with endocrine upon discharge Hypomagnesemia Hypophosphatemia Replete electrolytes as needed Hypothyroidism Continue Levothyroxine Diastolic Heart Failure LEYVA H/O aortic stenosis S/P TAVR Continue home diuretics Monitor volume status CAD S/P stent Continue Plavix, statin, metoprolol CKD III Creatinine at baseline Monitor renal function Avoid nephrotoxic agents as able H/O colon cancer H/O breast cancer S/P bilateral mastectomy Mood disorder H/O schizoaffective disorder, bipolar type Continue home medications DANYELLE CPAP at bedtime Obesity BMI 39.4 Plan DVT px SQ Lovenox Code status Full Admission and Anticipated Discharge Date Admission Date: February 13, 2023 Subjective Patient is seen and examined at bedside States feeling much better today Offers no complaints today Sitting in chair during my encounter Denies any chest pain, dyspnea, dizziness, nausea, abdominal pain Discussed with patient's daughter at bedside Review of Systems Review of Systems: All systems reviewed & are unremarkable except as noted in Subjective Physical Exam Physical Exam: Physical Exam: Vitals signs as noted above General Appearance:Obese, no apparent distress Head: normocephalic, Atraumatic Eyes: normal inspection, EOMI Neck: supple, Trachea midline Respiratory/Chest: Decreased breath sounds, CTA, No accessory muscle use Cardiovascular: S1, S2, No murmur Abdomen/GI:Soft, Non tender, Bowel sounds present Extremities/Musculoskeletal:normal inspection, no edema Neurologic/Psych:AAOX3, grossly no focal neurological deficits Skin: normal color, warm Results & Data Results & Data Vital Signs (Past 12 Hours) Vital Signs Temp Pulse Resp BP BP Pulse Ox O2 Del Method 02/14/23 15:19 37.0 C 88 18 115/74 95 Room Air 02/14/23 12:13 36.9 C 107 H 20 120/71 95 Room Air 02/14/23 08:00 36.7 C 88 20 136/79 95 Room Air Laboratory Results Short CBC 02/14/23 Range/Units 07:30 WBC 7.83 (4.8-10.8) K/ul Hgb 12.4 (12.0-16.0) g/dl Hct 35.9 L (37.0-47.0) % Plt Count 109 L (130-400) K/uL BMP 02/14/23 07:30 Sodium 138 D Potassium 3.5 Chloride 107 Carbon Dioxide 24 BUN 17 Creatinine 0.81 D Glucose 141 H Calcium 9.0
[2023-02-14] MEDS ORDERED: DC IV INSULIN INFUSION 1 EA DEVI ONE (16:00)
[2023-02-14] MEDS: METOPROLOL TARTRATE 100 MG TAB PO SCH (21:21)
[2023-02-14] MEDS: POTASSIUM CHLORIDE 10 MEQ TABCR PO SCH (21:21)
[2023-02-14] MEDS: oxyBUTYnin chloride 5 MG TAB PO SCH (21:23)
[2023-02-14] MEDS: ENOXAPARIN INJ 40 MG/0.4 ML SYR SQ SCH (21:23)
[2023-02-15] MEDS: INSULIN ASPART PER UNIT CHARGE SC SCH ×6 (00:28→21:24)
[2023-02-15] MEDS: SODIUM CHLORIDE 0.9% 1000ML 1,000 ML IV SCH (04:25)
[2023-02-15 06:27] LABS: BUN Creatinine Ratio 13.3 (10-20); Calcium 8.1 mg/dl (8.6-10.3); Creatinine Clr Calc Pharmacy 60.7 ml/min; Est GFR (African American) 78.3 ml/min; Est GFR (Non-African American) 67.6 ml/min; Magnesium 1.7 mg/dl (1.7-2.4); Phosphorus 3.1 mg/dl (2.5-4.9); Potassium 3.7 mmol/L (3.5-5.1)
[2023-02-15] MEDS: LEVOTHYROXINE SODIUM 75 MCG TABLET PO SCH (06:36)
[2023-02-15 08:05] LABS: Hematocrit (blood only) 36.6 % (37.0-47.0); Hemoglobin 12.3 g/dl (12.0-16.0); Mean Corpuscular Hemoglobin 28.1 pg (25.0-34.0); Mean Corpuscular Hgb Conc 33.6 g/dL (32.0-36.0); Mean Corpuscular Volume 83.6 fL (80.0-100.0); Mean Platelet Volume 11.3 fL (9.4-12.4); Platelet Count 113 K/uL (130-400); RDW Coefficient of Variation 14.7 % (11.5-14.5); RDW Standard Deviation 44.6 fL (36.4-46.3); Red Blood Count 4.38 M/uL (4.20-5.40); White Blood Count 7.01 K/ul (4.8-10.8)
[2023-02-15] MEDS: MAGNESIUM OXIDE 400 MG TAB PO SCH (09:00)
[2023-02-15] MEDS: PREGABALIN 75 MG CAP PO SCH ×2 (09:00→21:21)
[2023-02-15] MEDS: BENZTROPINE MESYLATE 1 MG TAB PO SCH (09:01)
[2023-02-15] MEDS: TORSEMIDE 10 MG TAB PO SCH (09:01)
[2023-02-15] MEDS: METOPROLOL TARTRATE 100 MG TAB PO SCH ×2 (09:02→21:26)
[2023-02-15] MEDS: POTASSIUM CHLORIDE 10 MEQ TABCR PO SCH ×2 (09:02→21:24)
[2023-02-15] MEDS: POT PHOSPHATE MONOBASIC W/ SOD TAB PO SCH ×4 (09:03→21:22)
[2023-02-15] MEDS: SPIRONOLACTONE 25 MG TAB PO SCH (09:03)
[2023-02-15] MEDS: busPIRone 15 MG TAB PO SCH ×2 (09:03→21:24)
[2023-02-15] MEDS: VALSARTAN 80 MG TAB PO SCH (09:05)
[2023-02-15] MEDS: INSULIN HUMAN NPH SC SCH ×2 (09:06→16:57)
[2023-02-15] MEDS: CLOPIDOGREL BISULFATE 75 MG TAB PO SCH (09:07)
[2023-02-15] MEDS: ATORVASTATIN 40 MG TAB PO SCH (09:07)
--- NOTE | 2023-02-15 12:46 | Hospitalist Progress Note ---
Date of Service February 15, 2023 Assessment & Plan (1) Hyperglycemia due to type 2 diabetes mellitus: Plan: -Patient is on Humulin-R 500 320 units breakfast, 340 units lunch, 70 units for dinner. Despite this, her glucose is in 700-800s range. Uncontrolled DM II Possible HHS-POA HbA1C:9.2 Non Compliance (Patient admits to being forgetful) No signs of ketoacidosis Continue insulin per protocol prosthodontist/educator consulted Monitor blood glucose levels Appreciate glycemic pharmacist help Needs follow-up with endocrine upon discharge--follows with endocrinology at [facility] Counseled on medication compliance Chronic thrombocytopenia No bleeding issues Monitor platelet count Hypomagnesemia Hypophosphatemia Replete electrolytes as needed Hypothyroidism Continue Levothyroxine Diastolic Heart Failure LEYVA H/O aortic stenosis S/P TAVR Continue home diuretics Monitor volume status CAD S/P stent Continue Plavix, statin, metoprolol CKD III Creatinine at baseline Monitor renal function Avoid nephrotoxic agents as able H/O colon cancer H/O breast cancer S/P bilateral mastectomy Mood disorder H/O schizoaffective disorder, bipolar type Continue home medications DANYELLE CPAP at bedtime Obesity BMI 39.4 Disposition Likely discharge home in 1 to 2 days Will benefit from home health. Plan DVT px SQ Lovenox Code status Full Admission and Anticipated Discharge Date Admission Date: February 13, 2023 Subjective Patient is seen and examined at bedside Sitting in chair comfortably during the encounter Offers no new complaints Blood glucose levels better today Offers no complaints today Denies any chest pain, dyspnea, dizziness, nausea, abdominal pain Counseled on medication compliance Review of Systems Review of Systems: All systems reviewed & are unremarkable except as noted in Subjective Physical Exam Physical Exam: Physical Exam: Vitals signs as noted above General Appearance:Obese, no apparent distress Head: normocephalic, Atraumatic Eyes: normal inspection, EOMI Neck: supple, Trachea midline Respiratory/Chest: Decreased breath sounds, CTA, No accessory muscle use Cardiovascular: S1, S2, No murmur Abdomen/GI:Soft, Non tender, Bowel sounds present Extremities/Musculoskeletal:normal inspection, no edema Neurologic/Psych:AAOX3, grossly no focal neurological deficits Skin: normal color, warm Results & Data Results & Data Vital Signs (Past 12 Hours) Vital Signs Temp Pulse Resp BP Pulse Ox O2 Del Method 02/15/23 08:06 37 C 85 19 123/77 94 Room Air 02/15/23 03:14 36.8 C 79 18 134/79 96 Room Air Laboratory Results Short CBC 02/15/23 Range/Units 05:29 WBC 7.01 (4.8-10.8) K/ul Hgb 12.3 (12.0-16.0) g/dl Hct 36.6 L (37.0-47.0) % Plt Count 113 L (130-400) K/uL BMP 02/15/23 05:28 Sodium 141 Potassium 3.7 Chloride 111 H Carbon Dioxide 23 BUN 12 Creatinine 0.90 Glucose 152 H Calcium 8.1 L
--- NOTE | 2023-02-15 12:53 | Pharmacy Report ---
Pharmacy Glycemic Short Note 2 - Date of Service February 15, 2023 - Glycemic Short BSG Results (Last 24 hours): 02/14/23 02/14/23 02/14/23 13:32 14:30 16:11 Glucose POC Glucose 249 H 179 H 163 H 02/14/23 02/15/23 02/15/23 20:19 00:27 04:27 Glucose POC Glucose 193 H 90 153 H 02/15/23 02/15/23 02/15/23 05:28 07:26 11:54 Glucose 152 H POC Glucose 158 H 240 H OUTPATIENT ANTIDIABETIC REGIMEN: * U-500:: 340 units in AM, 340 units in afternoon, 70 units in evening * HbA1C = 9.2% (02/14/23) ASSESSMENT: 02/15 * Jovita received 120 units of NPH and 75 units of Novolog yesterday. IV insulin infusion was discontinued 02/14 around 1530. * Fasting BSG of 158 mg/dL this morning is acceptable. Will continue NPH dosed per BSG scale until needs are better known. * Post prandial elevation with lunch. Will tighten carb coverage based on spike in BSG from 158 -> 240 mg/dL. 02/14 * Ms Rose is a 62 y/o F with a PMH of T2DM on U-500 who is admitted with hy perglycemia. * Patient was initially started on a insulin infusion. * Based upon previous records, patient typically required NPH inhouse. The patient was initiated on higher doses of NPH (~140 -200 units/day), but these doses were progressively being decreased during hospitalization. Since patient was NPO this AM and U-500 doses are lower than previously, will start with lower dose of NPH at 60 units. A second dose of 60 units will be given with dinner (for total of 120 units today). Titration available for tomorrow with a 20% increase. * Novolog with CR of 2 while patient is on insulin infusion. Will establish tight CF whenever transitioned off insulin infusion. PLAN FOR INPATIENT GLYCEMIC CONTROL: * Basal insulin * NPH 60-80 units SQ BID17 * Bolus insulin * NovoLog per scale ACHS or Q6hrs while NPO * Goal Range: Low 110 mg/dL - High 140 mg/dL * Correction Factor: 8 mg/dL/unit * Nutritional / Prandial insulin per carb ratio of 1 unit per 1.5 grams CHO consumed
[2023-02-15] MEDS: ENOXAPARIN INJ 40 MG/0.4 ML SYR SQ SCH (21:21)
[2023-02-15] MEDS: oxyBUTYnin chloride 5 MG TAB PO SCH (21:22)
[2023-02-16] MEDS ORDERED: INSULIN ASPART PER UNIT CHARGE SC SCH
[2023-02-16 06:38] LABS: Hematocrit (blood only) 36.3 % (37.0-47.0); Hemoglobin 12.5 g/dl (12.0-16.0); Mean Corpuscular Hemoglobin 28.2 pg (25.0-34.0); Mean Corpuscular Hgb Conc 34.4 g/dL (32.0-36.0); Mean Corpuscular Volume 81.9 fL (80.0-100.0); Platelet Count 110 K/uL (130-400); RDW Coefficient of Variation 14.7 % (11.5-14.5); RDW Standard Deviation 43.3 fL (36.4-46.3); Red Blood Count 4.43 M/uL (4.20-5.40); White Blood Count 7.37 K/ul (4.8-10.8)
[2023-02-16] MEDS: LEVOTHYROXINE SODIUM 75 MCG TABLET PO SCH (06:45)
[2023-02-16 06:56] LABS: Anion Gap 7 (3-11); BUN Creatinine Ratio 12.9 (10-20); Blood Urea Nitrogen 13 mg/dl (6-23); Calcium 7.9 mg/dl (8.6-10.3); Carbon Dioxide 24 mmol/L (21-32); Chloride 107 mmol/L (98-107); Creatinine Clr Calc Pharmacy 53.7 ml/min; Est GFR (African American) 68.1 ml/min; Est GFR (Non-African American) 58.8 ml/min; Glucose 93 mg/dl (70-99(Fasting)); Magnesium 1.5 mg/dl (1.7-2.4); Phosphorus 3.5 mg/dl (2.5-4.9); Sodium 138 mmol/L (136-145)
[2023-02-16] MEDS: INSULIN ASPART PER UNIT CHARGE SC SCH ×3 (08:09→17:14)
[2023-02-16] MEDS: INSULIN HUMAN NPH SC SCH ×2 (08:09→17:14)
[2023-02-16] MEDS: PREGABALIN 75 MG CAP PO SCH (08:11)
[2023-02-16] MEDS: VALSARTAN 80 MG TAB PO SCH (08:11)
[2023-02-16] MEDS: POT PHOSPHATE MONOBASIC W/ SOD TAB PO SCH (08:11)
[2023-02-16] MEDS: METOPROLOL TARTRATE 100 MG TAB PO SCH (08:12)
[2023-02-16] MEDS: SPIRONOLACTONE 25 MG TAB PO SCH (08:12)
[2023-02-16] MEDS: MAGNESIUM OXIDE 400 MG TAB PO SCH (08:12)
[2023-02-16] MEDS: busPIRone 15 MG TAB PO SCH (08:12)
[2023-02-16] MEDS: POTASSIUM CHLORIDE 10 MEQ TABCR PO SCH (08:12)
[2023-02-16] MEDS: ATORVASTATIN 40 MG TAB PO SCH (08:12)
[2023-02-16] MEDS: BENZTROPINE MESYLATE 1 MG TAB PO SCH (08:12)
[2023-02-16] MEDS: TORSEMIDE 10 MG TAB PO SCH (08:12)
[2023-02-16] MEDS: CLOPIDOGREL BISULFATE 75 MG TAB PO SCH (08:12)
[2023-02-16] MEDS ORDERED: MAGNESIUM SULFATE / D5W 1 GM/100 ML BAG IV ONE (08:44)
[2023-02-16 11:54] VITALS: PULSE 76
--- NOTE | 2023-02-16 12:45 | Pharmacy Report ---
Pharmacy Glycemic Short Note 2 - Date of Service February 16, 2023 - Glycemic Short BSG Results (Last 24 hours): 02/15/23 02/15/23 02/15/23 16:16 20:25 23:46 Glucose POC Glucose 165 H 112 H 110 H 02/16/23 02/16/23 02/16/23 06:22 07:31 11:18 Glucose 93 POC Glucose 113 H 109 H OUTPATIENT ANTIDIABETIC REGIMEN: * U-500:: 340 units in AM, 340 units in afternoon, 70 units in evening * HbA1C = 9.2% (02/14/23) ASSESSMENT: 02/16 * Jovita received 259 units of insulin yesterday: 140 units NPH and 119 units of Novolog * Fasting BSG of 130 mg/dL this morning is near goal. Will decrease NPH dose per scale so that patient receives a max of 140 units of NPH per day. * Post prandial BSGs much more controlled today. Lunch BSG of 109 mg/dL. Will loosen carb ratio back to 2 to avoid hypoglycemia. 02/15 * Jovita received 120 units of NPH and 75 units of Novolog yesterday. IV insulin infusion was discontinued 02/14 around 1530. * Fasting BSG of 158 mg/dL this morning is acceptable. Will continue NPH dosed per BSG scale until needs are better known. * Post prandial elevation with lunch. Will tighten carb coverage based on spike in BSG from 158 -> 240 mg/dL. 02/14 * Ms oRse is a 62 y/o F with a PMH of T2DM on U-500 who is admitted with hyperglycemia. * Patient was initially started on a insulin infusion. * Based upon previous records, patient typically required NPH inhouse. The patient was initiated on higher doses of NPH (~140 -200 units/day), but these doses were progressively being decreased during hospitalization. Since patient was NPO this AM and U-500 doses are lower than previously, will start with lower dose of NPH at 60 units. A second dose of 60 units will be given with dinner (for total of 120 units today). Titration available for tomorrow with a 20% increase. * Novolog with CR of 2 while patient is on insulin infusion. Will establish tight CF whenever transitioned off insulin infusion. PLAN FOR INPATIENT GLYCEMIC CONTROL: * Basal insulin * NPH 60-70 units SQ BID17 * Bolus insulin * NovoLog per scale ACHS or Q6hrs while NPO * Goal Range: Low 110 mg/dL - High 140 mg/dL * Correction Factor: 8 mg/dL/unit * Nutritional / Prandial insulin per carb ratio of 1 unit per 2 grams CHO consumed
--- NOTE | 2023-02-16 13:38 | Discharge Summary ---
Date of Service February 16, 2023 Admission HPI Per Admitting Provider Ms Jovita Rose is a 62 year old female with history significant for type 2 insulin dependent diabetes who is on Humulin U-500 (320 units morning, 340 units afternoon and 70 units evening) was sent in today after her outpatient labwork revealed a glucose level in 700s. Patient reports that his home glucose meter has been showing levels consistently in the 700-800s for the past 1 month. During this time, her daughter had recently bought her "mom's meals" which are premade dinners and this may be causing her glucose to become uncontrolled. Despite glucose readings in the 700-800s, she did not contact her Endoc rinologist or her PCP's office for further instructions. When asked why she didn't contact her resident physician, she reports "because they are located in [address] and I can't get there". She reports increased thirst and urination. Denies other complaints. Principal Diagnosis Poorly controlled type 2 DM with hyperglycemia Discharge Exam Appears well, no acute distress, non toxic Breathing comfortably on room air, no accessory muscle use No lower extremity swelling Finished lunch Discharge Data Allergies Allergy/AdvReac Type Severity Reaction Status Date / Time lisinopril Allergy Unknown unk Verified 07/03/18 07:56 Penicillins Allergy Unknown . Verified 07/03/18 07:56 adhesive tape Allergy CAN NOT Verified 05/02/19 17:36 TOLERATE BANDAIDS monosodium glutamate Allergy EDEMA OF Verified 05/02/19 17:36 HANDS & FEET Consultations 02/13/23 15:49 ED Decision to Admit Stat Diabetes Follow up Diabetes Follow-up Needed for HgbA1c >9% Hospital Course (1) Hyperglycemia due to type 2 diabetes mellitus: Ms Jovita Rose is a 62 year old female with history of type 2 insulin dependent diabetes, insulin resistance, morbid obesity, chronic thrombocytopenia, hypothyroidism, chronic diastolic CHF, aortic stenosis status post TAVR, LEYVA, CAD with prior stenting, history of colon cancer and breast cancer, DANYELLE on BIPAP, bipolar disorder was admitted from home due to persistently elevated blood glucose (700-800s) for the past 1 month. Patient did not have DKA but was placed on an insulin drip for hyperglycemia. After 24 hours, she was transitioned to subcutaneous insulin. Insulin management with assistance of glycemic pharmacist. She was seen by paraeducator here and upon further investigation, there was concern she was not taking her insulin as prescribed and may be missing doses. She was instructed to keep a log book of her insulin administration and glucose levels for review with her outpatent providers at her next follow up. She can resume her home insulin regimen at discharge and has an appointment with her providers the following week for further adjustment. Home health for visiting nurse will be arranged for patient to help with diabetic education and management. Home Health Attestation I certify that this patient is under my care and that I, or a physicians curriculum assistant principal working with me, had a face to-face encounter that meets the home health vobz-hi-jopo encounter requirements with this patient. The encounter with the patient was in whole, or in part, for the following medical condition, which is the primary reason for home health care (list medical condition): I certify that, based on my findings, the following services are medically necessary home health services: My clinical findings support the need for the above services because: Further, I certify that my clinical findings support that this patient is homebound (i.e. absences from home require considerable and taxing effort and are for medical reasons or rastafarian services or infrequently or of short duration when for other reasons) because: Certification for Home Health Services: Based on the above findings, I certify that this patient is confined to the home and needs intermittent usp care, physical therapy and/or speech therapy or continues to need occupational therapy. The patient is under my care, and I have initiated the establishment of the plan of care. This patient will be followed by a physician who will periodically review the plan of care. Total Time Total Time Spent Total Time Spent (In Minutes): 45 Discharge Plan Discharge Items Patient Disposition: Home - Home Health Services Reason For Visit: HYPERGLYCEMIA Discharge Diagnosis: Type 2 DM with hyperglycemia Condition on Discharge: Good Activity: Resume your previous activity Weightbearing: Full weightbearing Non-emergency contact: Primary Care Provider and Specialist Call non-emergency contact if: you have any medication questions Follow-up/Referrals: [facility] [Other] ([facility] will call you to schedule a home visit.) Dr. Tiffani Garcia [Other] (Date & Time 06/11/2023 12:00 PM Provider Tiffani Garcia MD Department Endocrinology, [address] *Please note that this is a virtual appointment. You will receive an email with instructions for this appointment. If this You have been placed on a cancellation list. If a sooner appointment becomes available, you will be notified.) [facility] [Other] (Date & Time 02/22/2023 3:00 PM Provider [facility], [facility] ) Gregory Rausch MD [Primary Care Provider] - (Date & Time 02/22/2023 2:00 PM Provider Angeline Puentes, Department Family Practice [facility] ) Diet: Carb Consistent or DM2 Addtl Attending Provider Instructions: Please follow up with your Primary Care Doctor and Mower Operator as soon as possible after discharge You can resume your home insulin doses. Please keep a log book of your insulin use and glucose measurements to review with your doctor at your next visit Pending Studies at Discharge: No Stand-Alone Forms: My [employer], Smoking Cessation Medications and DC Order Prescriptions: New (DME) [facility] [place] [facility] See Rx Instructions .Route Qty: 1 0RF Rx Instructions: As directed Continued cyclobenzaprine 10 mg Tablet 10 mg PO HS PRN (Reason: MUSCLE SPASMS) atorvastatin [Lipitor] 40 mg tablet 40 mg PO DAILY metoprolol tartrate [Lopressor] 100 mg tablet 100 mg PO BID torsemide 10 mg tablet 20 mg PO DAILY Rx Instructions: TAKE AN ADDITION TAB UD BY HEALTH CARE PROVIDER FOR SOB OR SWELLING. clopidogrel [Plavix] 75 mg tablet 75 mg PO DAILY levothyroxine 75 mcg tablet 75 mcg PO DAILY meclizine 25 mg tablet 50 mg PO BID vitamin B complex Tablet 1 tab PO DAILY buspirone 15 mg tablet 15 mg PO BID valsartan [Diovan] 40 mg tablet 20 mg PO DAILY pregabalin [Lyrica] 75 mg capsule 75 mg PO BID omega 5-pys-afb-fish oil [Fish Oil] 1,000 mg (120 mg-180 mg) Capsule 1 cap PO DAILY spironolactone 25 mg Tablet 25 mg PO DAILY potassium chloride 20 mg PO BID metolazone 2.5 mg tablet 2.5 mg PO Q7D metformin 850 mg tablet 850 mg PO BID trazodone 100 mg tablet 100 mg PO HS PRN (Reason: Insomnia) benztropine 1 mg tablet 1 mg PO DAILY oxybutynin chloride 5 mg tablet 5 mg PO HS magnesium oxide 400 mg magnesium tablet 400 mg PO DAILY Ozempic 1 mg/dose (4 mg/3 mL) pen injector 1 mg SUBCUT Q7D Humulin R U-500 (Conc) Kwikpen 500 unit/mL (3 mL) insulin pen 1 unit SUBCUT UD Rx Instructions: 340 units qam, 340 units lunch, 70 units dinner Discharge Orders: Discharge Order (Routine); Ordered 02/16/23 Ordered By: Alicia Wheatley/Other Patient Handouts: High Blood Sugar (Hyperglycemia), Managing Type 2 Diabetes Admission Data Admit Date/Time: 02/13/23 18:12 Attending Provider: Alicia Nolan Admit Provider: Alicia Nolan Primary Care Provider: Gregory Rausch Other Providers: Alicia Nolan ; Nathanael Corado
[2023-02-16 15:12] VITALS: TEMP 98.4; O2SAT 97
[2023-02-16 17:24] VITALS: BP 120/71
== END 2023-02-16 17:44 | disposition home health service (06) | DRG 638 ==
LOC: ED 13:55 → SUATTDRO 18:12 → 2S 18:12

== ENCOUNTER 2023-10-27 11:56 | Inpatient (IN) ==
--- NOTE | 2023-10-27 12:02 | Emergency Department Note ---
Impression & Plan Acute hyponatremia, Hypoxia, Acute hyperglycemia, Acute hypokalemia, Dizziness, A-fib ED Provider Note NAME: BRIGIDA ROCA AGE: 62 SEX: F : 1960 ARRIVES VIA: Ambulance INFORMANT: Patient, ED PROVIDER(S): Darek Lees MD CHIEF COMPLAINT: Dizziness, vertigo, elevated blood sugar MEDICAL DECISION MAKING: Patient presents with above symptoms. IV was established and blood work was obtained. Clinically the patient appears to be dry was noted to have a sugar greater than 400 so IV fluids were ordered. [id number] BMP obtained which showed glucose of 382 but with a sodium of 118. Fluids held in the patient's creat was 1.3. CT head and CT angiography of head and neck are ordered as the patient has a known history of A-fib not on anticoagulation therapy but is on dual antiplatelets. Patient was noted to be mildly hypoxic and was placed on 2 L nasal cannula. The patient does not appear to be volume overloaded and denies any cough. Chest x-ray without obvious pneumonia or pneumothorax Patient's blood work shows a normal white count normal hemoglobin and normal platelet count. Patient is noted to have hyponatremia at 121. Low potassium at 2.3 and elevated mag and bicarb. Creatinine 1.25. Patient was held the fluids once the sodium was noted to be low. I did speak with the hospitalist service. Initial troponin of 20.5. Patient denies any chest chest pains. Urine and serum osmolality ordered along with urine electrolytes. Patient's CT head negative and CT angiography of the head and neck negative. The patient's chest x-ray is negative for pneumonia or pneumothorax. I did speak with Betty España PA-C and the patient was admitted by Dr. Abraham. Critical Care: I have personally spent 35 minutes of critical care time in direct management of this patient. This includes bedside care, interpretation of diagnostic studies, and testing, discussion with consultants, patient, and family members, and other require inpatient management activities. This 35 minutes is in excess of all separately billable procedures. Discussion w/ other healthcare providers: Betty España PA-C and Dr. Abraham Prior /Outside records reviewed: None Differential diagnosis: Benign positional vertigo, dehydration, hypovolemia, anemia, infection, hypoglycemia, electrolyte abnormalities, arrhythmia, tox among others were considered. Diagnostics, as interpreted by me: ECG: Sinus with PACs, rate of 85, prolonged MI, left axis deviation no ST elevations. Prolonged QT. Cardiac monitoring: An order was placed for continuous cardiac monitoring. The monitor shows a rate of 87 with sinus rhythm. Patient was placed on pulse oximetry Medical decision rules: None Imaging studies: I informally interpreted the patient's CT head which does not show obvious ICH with formal report to follow. I informally interpreted the patient's chest x-ray which does not show obvious pneumonia or pneumothorax with formal report to follow HPI: Patient presents due to concern for lightheadedness and dizziness as well as vertigo. The patient states that she has had some episodes of lightheadedness which been ongoing and seem to have been worsening in the last 24 to 48 hours. The patient states that chronically she does suffer from lightheadedness and dizziness and will have some occasional vertigo. Patient dates that when she gets get up to walk she does use a cane for assistance within the home and a walker outside of the home. Patient is noticed that she feels as though the room is moving. Patient denies any alcohol or tobacco use. No drug use. Patient states she is compliant with her medications and does not believe she has had any changes in diet. Patient does not always check her blood sugars but the patient does take her medications and administer insulin PAST MEDICAL HISTORY: See Below PAST SURGICAL HISTORY: See Below SOCIAL HISTORY: See Below HOME MEDICATIONS: See Below ALLERGIES: See Below VITALS: See Below PHYSICAL EXAMINATION: GENERAL: NAD, non-toxic. EYE EXAM: Normal conjunctiva. PERRL, no anisocoria and EOM's grossly intact w/o pain. OROPHARYNX: Moist mucus membranes, grossly normal dentition. NECK: Trachea midline, no stridor. Supple, no nuchal rigidity, no adenopathy, non-tender. No signs of meningismus. FROM of the neck with good chin to chest and neck extension. LUNGS: Clear to auscultation. Normal chest wall mechanics. HEART: NSR, no MRG. ABDOMEN: Abdomen soft, non-tender, no masses, no rebound or guarding. BACK: No CVA TTP. SKIN: No rashes and no bruising. UPPER EXTREMITIES: Upper extremities are grossly normal. LOWER EXTREMITIES: Grossly normal, no edema. NEURO EXAM: A&O x3, cranial nerves II-XII grossly intact, normal speech, moves all 4 extremities. Past Med/Surg History Medical History (Updated 10/27/23 @ 17:24 by Darek Lees MD) Acute hyperglycemia Hyperglycemia due to type 2 diabetes mellitus Hypomagnesemia Hypokalemia Intertrigo Chest pain Pulmonary embolism Altered mental status UTI (urinary tract infection) Pleuritic chest pain CKD (chronic kidney disease) stage 3, GFR 30-59 ml/min IDDM (insulin dependent diabetes mellitus) CAD (coronary artery disease) Uterine cancer 2014--sx, no chemo/radiation Breast cancer, right breast 2007--Sx, chemo/radiation Colon cancer 2004--sx, no chemo or radiation Liver cirrhosis non-alcoholic Hypothyroidism Diabetes mellitus, type 2 On anticoagulant therapy Cataract of both eyes Depression Anxiety Aortic valve stenosis Cardiac murmur Follows with Dr. Muniz Hyperlipidemia Hypertension Sleep apnea Cpap History of removal of breast implant "Left " Depression with anxiety DANYELLE (obstructive sleep apnea) Hypothyroidism HTN (hypertension) Heart failure Dyslipidemia Cataract Aortic valvar stenosis Breast cancer Colon cancer Surgical History Presence of stent in coronary artery S/P TAVR (transcatheter aortic valve replacement) History of percutaneous coronary intervention prior to TAVR in order to protect her left main, she also had a 3.5 x 23 millimeter drug-eluting stent placed in the left main/LAD, which was expanded out into the aorta. History of cardiac cath x2--2010 @ [facility] 07/2017 @ [facility]-no stent, follows with Dr. Muniz S/P foot surgery, right "foot was widening" History of section x4 H/O breast surgery L implant infected and was removed History of breast reconstruction Bilt breast after masectomy History of bilateral tubal ligation History of dilatation and curettage History of carpal tunnel release bilt History of colonoscopy History of esophagogastroduodenoscopy (EGD) History of total abdominal hysterectomy and bilateral salpingo-oophorectomy 2014 D/T uterine cancer H/O breast biopsy right--malignant H/O bilateral mastectomy 01/2008--breast cancer History of bowel resection 2004 @ [facility] d/t Colon Cancer History of appendectomy History of open heart surgery 2011 @ [facility] H/O aortic valve replacement 06/2017 @ [facility] History of hysterectomy with bilateral oophorectomy History of appendectomy History of partial colectomy S/P mastectomy, bilateral H/O colonoscopy Previous section History of carpal tunnel surgery of right wrist History of carpal tunnel surgery of left wrist TAVR 2018 H/O aortic valve replacement #25 Manga aortic valve bioprosthesis placed in 2010, and in 2017 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: No Beliefs That Will Affect Care: None marital status: Single marital status details: has fiance Current Living Situation: Alone Current Living Situation Comment: lives in appartment Feels Safe at Home: Yes Assistive Devices: Cane and Walker Allergies Allergies Allergy/AdvReac Type Severity Reaction Status Date / Time glycerin Allergy Intermediate ITCHING, Verified 10/27/23 15:43 BURNING FROM TOPICALS lactose Allergy Intermediate Gastrointestinal Verified 10/27/23 15:43 Upset Penicillins Allergy Intermediate Rash Verified 10/27/23 15:43 adhesive tape AdvReac Intermediate CAN NOT Verified 10/27/23 15:43 TOLERATE BANDAIDS lisinopril AdvReac Intermediate Cough Verified 10/27/23 15:43 monosodium glutamate AdvReac Intermediate EDEMA OF Verified 10/27/23 15:43 HANDS & FEET Home Meds Home Medications Medication Instructions Recorded Confirmed atorvastatin 40 mg tablet (Lipitor) 40 mg PO DAILY 05/02/19 10/27/23 clopidogrel 75 mg tablet (Plavix) 75 mg PO DAILY 05/02/19 10/27/23 levothyroxine 75 mcg tablet 75 mcg PO DAILY 05/02/19 10/27/23 meclizine 25 mg tablet 50 mg PO BID 05/02/19 10/27/23 torsemide 10 mg tablet 10 mg PO DAILY 05/02/19 10/27/23 magnesium oxide 400 mg PO DAILY 02/14/23 10/27/23 metolazone 2.5 mg tablet 2.5 mg PO 2XWK 02/14/23 10/27/23 trazodone 100 mg tablet 100 mg PO HS Insomnia 02/14/23 10/27/23 ammonium lactate 12 % lotion 1 applic topical DAILY 06/03/23 10/27/23 aspirin 81 mg tablet,delayed 81 mg PO DAILY 06/03/23 10/27/23 release clindamycin HCl 300 mg capsule 600 mg PO DIRECTED PRN PRIOR TO 06/03/23 10/27/23 DENTAL APPT cranberry extract-vitamin C 250 2 cap PO TID 06/03/23 10/27/23 mg-60 mg capsule (Azo Cranberry Plus Vit C) fluticasone propionate 50 2 spray intranasal DAILY 06/03/23 10/27/23 mcg/actuation nasal spray,suspension insulin degludec 200 unit/mL (3 30 unit subcut HS 06/03/23 10/27/23 mL) subcutaneous pen (Tresiba FlexTouch U-200 insulin) melatonin 10 mg tablet 10 mg PO HS 06/03/23 10/27/23 multivitamin with minerals 1 tab PO DAILY 06/03/23 10/27/23 nystatin 100,000 unit/gram topical 1 applic topical DIRECTED PRN 06/03/23 10/27/23 powder Skin Irritation potassium chloride 10 mEq 10 meq PO BID 06/03/23 10/27/23 tablet,extended release(part/cryst) semaglutide 2 mg/dose (8 mg/3 mL) 2 mg subcut WK 06/03/23 10/27/23 subcutaneous pen injector (Ozempic) Al hyd-Mg tr-alg ac-sod bicarb 80 1 tab PO DIRECTED PRN Gi Upset 10/27/23 10/27/23 mg-14.2 mg chewable tablet (Gaviscon) gabapentin 100 mg capsule 100 mg PO TID 10/27/23 10/27/23 insulin aspart U-100 100 unit/mL 0 unit subcut TIDM 50 UNITS/DAILY 10/27/23 10/27/23 (3 mL) subcutaneous pen (Novolog FlexPen U-100 Insulin aspart) metformin 1,000 mg tablet 1,000 mg PO BID 10/27/23 10/27/23 metoprolol tartrate 25 mg tablet 25 mg PO BID 10/27/23 10/27/23 Previous Rx's Medication Instructions Recorded flash glucose scanning reader #1 ea 02/15/23 ([employer] [address] [place]) Results & Data (ED) Vital Signs Vital Signs - 24 hr 10/27/23 12:06 10/27/23 12:13 10/27/23 13:25 Temperature 36.7 C Temperature Source Oral Pulse Rate 99 H Pulse Rate [Apical] 97 H Respiratory Rate 22 22 24 Respiratory Effort / Characteristics Non-Labored Respiratory Depth Normal Normal Blood Pressure 154/76 H Blood Pressure [Left Arm] 154/76 H Blood Pressure Mean 102 Blood Pressure Mean [Left Arm] 102 Blood Pressure Position Lying Pulse Oximetry 96 91 98 Oxygen Delivery Method Room Air Room Air Nasal Cannula Oxygen Flow Rate 2 Sepsis Recent Fever Within 48 Hours No Sepsis New/Unexplained Change in Mental Status N/A Sepsis Action Taken by Nursing No Action Required 10/27/23 15:00 10/27/23 17:00 Temperature Temperature Source Pulse Rate Pulse Rate [Apical] 88 84 Respiratory Rate 18 18 Respiratory Effort / Characteristics Non-Labored Respiratory Depth Normal Normal Blood Pressure Blood Pressure [Left Arm] 166/73 H 181/87 H Blood Pressure Mean Blood Pressure Mean [Left Arm] 104 118 Blood Pressure Position Pulse Oximetry 98 100 Oxygen Delivery Method Nasal Cannula Nasal Cannula Oxygen Flow Rate 2 2 Sepsis Recent Fever Within 48 Hours Sepsis New/Unexplained Change in Mental Status Sepsis Action Taken by [facility] Medications Current Medication List: was personally reviewed by me Laboratory Data Attestation: I reviewed the patient's lab results. 10/27/23 12:22 10/27/23 12:22 Lab Results 10/27/23 10/27/23 10/27/23 Range/Units 12:03 12:22 12:22 WBC 7.90 (4.8-10.8) K/ul RBC 4.65 (4.20-5.40) M/uL Hgb 12.0 (12.0-16.0) g/dl POC Hgb (12.0-16.0) g/dl Hct 33.3 L (37.0-47.0) % POC Hct (37-47) % MCV 71.6 L (80.0-100.0) fL MCH 25.8 (25.0-34.0) pg MCHC 36.0 (32.0-36.0) g/dL RDW Std Deviation 39.5 (36.4-46.3) fL RDW Coeff of Valerio 15.6 H (11.5-14.5) % Plt Count 154 (130-400) K/uL MPV 10.9 (9.4-12.4) fL Immature Gran % (Auto) 0.3 % Neut % (Auto) 56.9 % Lymph % (Auto) 33.0 % Kemper % (Auto) 9.0 % Eos % (Auto) 0.5 % Baso % (Auto) 0.3 % Neut # (Auto) 4.50 (1.40-6.50) K/uL Lymph # (Auto) 2.61 (1.20-3.40) K/uL Kemper # (Auto) 0.71 H (0.11-0.59) K/uL Eos # (Auto) 0.04 (0.00-0.50) K/uL Baso # (Auto) 0.02 (0.00-0.20) K/uL Immature Gran # (Auto) 0.02 (0.01-0.20) K/uL PT 11.2 (9.0-12.0) Seconds INR 1.0 (0.9-1.1) ABG pH (7.35-7.45) ABG pCO2 (35-46) mmHg ABG pO2 (80-95) mmHg ABG HCO3 (19-24) mmol/L ABG O2 Saturation (90-95) % ABG Base Excess (-9-1.8) mEq/L Giovani Test (Pos) Oxygen Given POC Sodium (135-144) mmol/L Sodium 121 L (136-145) mmol/L POC Potassium (3.3-5.0) mmol/L Potassium 2.3 L* (3.5-5.1) mmol/L POC Chloride (101-112) mmol/L Chloride 70 L (98-107) mmol/L Carbon Dioxide 39 H (21-32) mmol/L POC Total CO2 (24-31) mmol/L Anion Gap 12 H (3-11) POC Anion Gap (16-25) mmol/L POC BUN (7-18) mg/dl BUN 22 (6-23) mg/dl Creatinine 1.25 H (0.6-1.2) mg/dl POC Creatinine (0.6-1.3) mg/dl Est Cr Clr Drug Dosing 39.1 ml/min Est GFR ( Amer) 52.6 ml/min Est GFR (Non-Af Amer) 45.4 ml/min BUN/Creatinine Ratio 17.6 (10-20) Glucose 380 H* (70-99(Fasting)) mg/dl POC Glucose 409 H* (70-99) mg/dl POC Glucose (other) (70-99) mg/dl Osmolality 268 L (280-300) mOsm/kg Calcium 9.1 (8.6-10.3) mg/dl POC Ioniz Calcium Marek (1.12-1.32) mmol/l Magnesium 2.2 (1.7-2.4) mg/dl Total Bilirubin 1.1 H (0.2-1.0) mg/dl AST 14 (13-39) U/L ALT 8 (7-52) U/L Alkaline Phosphatase 84 (34-104) U/L Troponin I High Sens 20.5 H Cancelled (0-14) pg/ml Total Protein 7.0 (6.0-8.3) gm/dl Albumin 4.0 (3.4-5.0) gm/dl Globulin 3.0 (2.5-4.0) gm/dl Albumin/Globulin Ratio 1.3 (0.9-2) TSH 1.247 (0.300-4.500) uIu/ml Urine Color Urine Appearance (Clear) Urine pH (4.5-7.5) Ur Specific [place] (1.000-1.030) Urine Protein (Negative) Urine Glucose (UA) (Negative) Urine Ketones (Negative) Urine Blood (Negative) Urine Nitrite (Negative) Urine Bilirubin (Negative) Urine Urobilinogen (Negative) Ur Leukocyte Esterase (Negative) Urine Osmolality (500-800) mOsm/kg Urine Sodium mmol/L Urine Potassium mmol/L Urine Chloride mmol/L 10/27/23 10/27/23 10/27/23 Range/Units 12:53 13:58 14:44 WBC (4.8-10.8) K/ul RBC (4.20-5.40) M/uL Hgb (12.0-16.0) g/dl POC Hgb 11.6 L (12.0-16.0) g/dl Hct (37.0-47.0) % POC Hct 34 L (37-47) % MCV (80.0-100.0) fL MCH (25.0-34.0) pg MCHC (32.0-36.0) g/dL RDW Std Deviation (36.4-46.3) fL RDW Coeff of Valerio (11.5-14.5) % Plt Count (130-400) K/uL MPV (9.4-12.4) fL Immature Gran % (Auto) % Neut % (Auto) % Lymph % (Auto) % Kemper % (Auto) % Eos % (Auto) % Baso % (Auto) % Neut # (Auto) (1.40-6.50) K/uL Lymph # (Auto) (1.20-3.40) K/uL Kemper # (Auto) (0.11-0.59) K/uL Eos # (Auto) (0.00-0.50) K/uL Baso # (Auto) (0.00-0.20) K/uL Immature Gran # (Auto) (0.01-0.20) K/uL PT (9.0-12.0) Seconds INR (0.9-1.1) ABG pH 7.63 H* (7.35-7.45) ABG pCO2 41 (35-46) mmHg ABG pO2 116 H (80-95) mmHg ABG HCO3 43 H (19-24) mmol/L ABG O2 Saturation 98.1 H (90-95) % ABG Base Excess 19.9 H (-9-1.8) mEq/L Giovani Test Pos (Pos) Oxygen Given 2 L POC Sodium 118 L* (135-144) mmol/L Sodium (136-145) mmol/L POC Potassium 2.2 L* (3.3-5.0) mmol/L Potassium (3.5-5.1) mmol/L POC Chloride 66 L (101-112) mmol/L Chloride (98-107) mmol/L Carbon Dioxide (21-32) mmol/L POC Total CO2 > 40 H* (24-31) mmol/L Anion Gap (3-11) POC Anion Gap 12.0 L (16-25) mmol/L POC BUN 23 H (7-18) mg/dl BUN (6-23) mg/dl Creatinine (0.6-1.2) mg/dl POC Creatinine 1.3 (0.6-1.3) mg/dl Est Cr Clr Drug Dosing ml/min Est GFR ( Amer) ml/min Est GFR (Non-Af Amer) ml/min BUN/Creatinine Ratio (10-20) Glucose (70-99(Fasting)) mg/dl POC Glucose (70-99) mg/dl POC Glucose (other) 386 H* (70-99) mg/dl Osmolality (280-300) mOsm/kg Calcium (8.6-10.3) mg/dl POC Ioniz Calcium Marek 0.96 L (1.12-1.32) mmol/l Magnesium (1.7-2.4) mg/dl Total Bilirubin (0.2-1.0) mg/dl AST (13-39) U/L ALT (7-52) U/L Alkaline Phosphatase (34-104) U/L Troponin I High Sens 19.6 H (0-14) pg/ml Total Protein (6.0-8.3) gm/dl Albumin (3.4-5.0) gm/dl Globulin (2.5-4.0) gm/dl Albumin/Globulin Ratio (0.9-2) TSH (0.300-4.500) uIu/ml Urine Color Yellow Urine Appearance Clear (Clear) Urine pH 7.5 (4.5-7.5) Ur Specific [place] 1.009 (1.000-1.030) Urine Protein Negative (Negative) Urine Glucose (UA) 2+ H (Negative) Urine Ketones Negative (Negative) Urine Blood Negative (Negative) Urine Nitrite Negative (Negative) Urine Bilirubin Negative (Negative) Urine Urobilinogen Negative (Negative) Ur Leukocyte Esterase Negative (Negative) Urine Osmolality 218 L (500-800) mOsm/kg Urine Sodium 38 mmol/L Urine Potassium 20.2 mmol/L Urine Chloride 36 mmol/L 10/27/23 Range/Units 15:45 WBC (4.8-10.8) K/ul RBC (4.20-5.40) M/uL Hgb (12.0-16.0) g/dl POC Hgb (12.0-16.0) g/dl Hct (37.0-47.0) % POC Hct (37-47) % MCV (80.0-100.0) fL MCH (25.0-34.0) pg MCHC (32.0-36.0) g/dL RDW Std Deviation (36.4-46.3) fL RDW Coeff of Valerio (11.5-14.5) % Plt Count (130-400) K/uL MPV (9.4-12.4) fL Immature Gran % (Auto) % Neut % (Auto) % Lymph % (Auto) % Kemper % (Auto) % Eos % (Auto) % Baso % (Auto) % Neut # (Auto) (1.40-6.50) K/uL Lymph # (Auto) (1.20-3.40) K/uL Kemper # (Auto) (0.11-0.59) K/uL Eos # (Auto) (0.00-0.50) K/uL Baso # (Auto) (0.00-0.20) K/uL Immature Gran # (Auto) (0.01-0.20) K/uL PT (9.0-12.0) Seconds INR (0.9-1.1) ABG pH (7.35-7.45) ABG pCO2 (35-46) mmHg ABG pO2 (80-95) mmHg ABG HCO3 (19-24) mmol/L ABG O2 Saturation (90-95) % ABG Base Excess (-9-1.8) mEq/L Giovani Test (Pos) Oxygen Given POC Sodium (135-144) mmol/L Sodium (136-145) mmol/L POC Potassium (3.3-5.0) mmol/L Potassium (3.5-5.1) mmol/L POC Chloride (101-112) mmol/L Chloride (98-107) mmol/L Carbon Dioxide (21-32) mmol/L POC Total CO2 (24-31) mmol/L Anion Gap (3-11) POC Anion Gap (16-25) mmol/L POC BUN (7-18) mg/dl BUN (6-23) mg/dl Creatinine (0.6-1.2) mg/dl POC Creatinine (0.6-1.3) mg/dl Est Cr Clr Drug Dosing ml/min Est GFR ( Amer) ml/min Est GFR (Non-Af Amer) ml/min BUN/Creatinine Ratio (10-20) Glucose (70-99(Fasting)) mg/dl POC Glucose 309 H* (70-99) mg/dl POC Glucose (other) (70-99) mg/dl Osmolality (280-300) mOsm/kg Calcium (8.6-10.3) mg/dl POC Ioniz Calcium Marek (1.12-1.32) mmol/l Magnesium (1.7-2.4) mg/dl Total Bilirubin (0.2-1.0) mg/dl AST (13-39) U/L ALT (7-52) U/L Alkaline Phosphatase (34-104) U/L Troponin I High Sens (0-14) pg/ml Total Protein (6.0-8.3) gm/dl Albumin (3.4-5.0) gm/dl Globulin (2.5-4.0) gm/dl Albumin/Globulin Ratio (0.9-2) TSH (0.300-4.500) uIu/ml Urine Color Urine Appearance (Clear) Urine pH (4.5-7.5) Ur Specific [place] (1.000-1.030) Urine Protein (Negative) Urine Glucose (UA) (Negative) Urine Ketones (Negative) Urine Blood (Negative) Urine Nitrite (Negative) Urine Bilirubin (Negative) Urine Urobilinogen (Negative) Ur Leukocyte Esterase (Negative) Urine Osmolality (500-800) mOsm/kg Urine Sodium mmol/L Urine Potassium mmol/L Urine Chloride mmol/L Administered Medications Potassium Chloride (K Anthony / Wtr) 10 meq in 100 mls @ 100 mls/hr IV Q1H EVGENY Stop: 10/27/23 18:14 Last Admin: 10/27/23 16:37 Dose: 100 mls/hr Documented By: Infusion: 10/27/23 16:33 Dose: Infused Documented By: Admin: 10/27/23 15:25 Dose: 100 mls/hr Documented By: MMWillard Infusion: 10/27/23 15:25 Dose: Infused Documented By: Admin: 10/27/23 14:30 Dose: 100 mls/hr Documented By: JAIME Sodium Chloride (Nss) 1,000 mls @ 125 mls/hr IV .Q8H EVGENY Stop: 11/26/23 14:59 Last Admin: 10/27/23 15:25 Dose: 125 mls/hr Documented By: JAIME Discontinued Medications Sodium Chloride (Nss) 1,000 mls @ 999 mls/hr IV .Q1H1M EVGENY Stop: 10/27/23 13:45 Last Infusion: 10/27/23 13:18 Dose: 0 mls/hr Documented By: Admin: 10/27/23 12:44 Dose: 999 mls/hr Documented By: JAIME Insulin Glargine (Lantus Per Unit Charge) 40 units SC ONE ONE Stop: 10/27/23 15:16 Last Admin: 10/27/23 16:51 Dose: 40 units Documented By: JAIME Co-signed By: MARTI Ioversol (Optiray 320 125ml) 118 ml IV ONCE ONE Stop: 10/27/23 14:17 Last Admin: 10/27/23 14:16 Dose: 118 ml Documented By: VIKTORIA Meclizine HCl (Meclizine Hcl 25 Mg Tab) 25 mg PO NOW STA Stop: 10/27/23 12:33 Last Admin: 10/27/23 13:16 Dose: Not Given Documented By: JAIME Potassium Chloride (Potassium Chloride Crtab 20 Meq Tabcr) 40 meq PO NOW STA Stop: 10/27/23 14:11 Last Admin: 10/27/23 14:28 Dose: 40 meq Documented By: JAIME Imaging Data Radiologist's Impression: Head CTA 10/27/23 12:32 CT angio head w con, CT head/brain wo con, CT angio neck with con CLINICAL HISTORY: 62 years-old Female with a fib, vertigo, not anticoag. Acute stroke like symptoms COMPARISON STUDY: Brain MRI 06/05/2023 TECHNIQUE: Unenhanced axial CT scan of the brain is performed. Subsequently, following the IV administration of 118 cc of Optiray, CT angiogram of the head and neck was performed from the aortic arch to the skull apex. Images are reviewed in the axial, sagittal, and coronal planes. 3-D MIPS images are created and assessed. IV contrast was administered without complication. All measurements were obtained according to NASCET criteria. A dose lowering technique was utilized adhering to the principles of ALARA. CT DOSE: 1112.49 mGy.cm FINDINGS: CT BRAIN: There is no acute intracranial hemorrhage, midline shift, hydrocephalus, intracranial mass, territorial ischemia or abnormal extra-axial collections. Mild involutional changes with ex vacuo ventriculomegaly. Right-sided gland repair. No abnormal intra-axial or extra-axial enhancement. Mastoid air cells and middle ear cavities are clear. No calvarial fracture. Paranasal sinuses are clear. CT ANGIOGRAM OF THE HEAD AND NECK: Median sternotomy. Atherosclerosis of the thoracic aortic arch. There is patency of the nominate and imaged subclavian arteries. The common carotid arteries are widely patent. Moderate atherosclerotic plaque of the carotid bulbs and proximal cervical segments of the internal carotid arteries results in less than 50% stenosis bilaterally. The bilateral anterior and middle cerebral arteries are also patent. Dominant left vertebral artery. The vertebral arteries are patent bilaterally. The majority of the right vertebral artery terminates into the right PICA. The basilar and posterior cerebral arteries are patent. There is no aneurysm, high-grade stenosis, or proximal branch occlusion identified. Dural sinuses appear patent. Lung apices are clear. Subcentimeter hypodense thyroid nodules. Probable left supraclavicular lipoma measuring approximately 7 cm. 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 Degenerative changes of the cervical spine. IMPRESSION: 1. No acute intracranial abnormality. 2. Atherosclerosis without aneurysm, dissection, high-grade stenosis or arterial occlusion identified. ACT 112: Negative or not required by law. The above report was generated using voice recognition software. It may contain grammatical, syntax or spelling errors. Electronically signed by: Rafa Leslie M.D. 10/27/2023 2:45 PM Neck CTA 10/27/23 12:32 CT angio head w con, CT head/brain wo con, CT angio neck with con CLINICAL HISTORY: 62 years-old Female with a fib, vertigo, not anticoag. Acute stroke like symptoms COMPARISON STUDY: Brain MRI 06/05/2023 TECHNIQUE: Unenhanced axial CT scan of the brain is performed. Subsequently, following the IV administration of 118 cc of Optiray, CT angiogram of the head and neck was performed from the aortic arch to the skull apex. Images are reviewed in the axial, sagittal, and coronal planes. 3-D MIPS images are created and assessed. IV contrast was administered without complication. All measurements were obtained according to NASCET criteria. A dose lowering technique was utilized adhering to the principles of ALARA. CT DOSE: 1112.49 mGy.cm FINDINGS: CT BRAIN: There is no acute intracranial hemorrhage, midline shift, hydrocephalus, intracranial mass, territorial ischemia or abnormal extra-axial collections. Mild involutional changes with ex vacuo ventriculomegaly. Right-sided gland repair. No abnormal intra-axial or extra-axial enhancement. Mastoid air cells and middle ear cavities are clear. No calvarial fracture. Paranasal sinuses are clear. CT ANGIOGRAM OF THE HEAD AND NECK: Median sternotomy. Atherosclerosis of the thoracic aortic arch. There is patency of the nominate and imaged subclavian arteries. The common carotid arteries are widely patent. Moderate atherosclerotic plaque of the carotid bulbs and proximal cervical segments of the internal carotid arteries results in less than 50% stenosis bilaterally. The bilateral anterior and middle cerebral arteries are also patent. Dominant left vertebral artery. The vertebral arteries are patent bilaterally. The majority of the right vertebral artery terminates into the right PICA. The basilar and posterior cerebral arteries are patent. There is no aneurysm, high-grade stenosis, or proximal branch occlusion identified. Dural sinuses appear patent. Lung apices are clear. Subcentimeter hypodense thyroid nodules. Probable left supraclavicular lipoma measuring approximately 7 cm. 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 Degenerative changes of the cervical spine. IMPRESSION: 1. No acute intracranial abnormality. 2. Atherosclerosis without aneurysm, dissection, high-grade stenosis or arterial occlusion identified. ACT 112: Negative or not required by law. The above report was generated using voice recognition software. It may contain grammatical, syntax or spelling errors. Electronically signed by: Rafa Leslie M.D. 10/27/2023 2:45 PM Chest X-Ray 10/27/23 12:33 XR chest 1V portable HISTORY: 62 years-old Female weakness acute weakness COMPARISON: 06/06/2023 TECHNIQUE: AP view of the chest FINDINGS: Cardiac silhouette is enlarged. Median sternotomy with cardiac valvular prosthesis. No pneumothorax or large pleural effusion. There is persistent blunting of the right lateral costophrenic angle. Mild chronic interstitial coarsening. Left breast implant. Degenerative changes of the shoulders and spine with rotator cuff calcific tendinosis. IMPRESSION: Cardiomegaly without acute process. ACT 112: Negative or not required by law. The above report was generated using voice recognition software. It may contain grammatical, syntax or spelling errors. Electronically signed by: Rafa Lelsie M.D. 10/27/2023 1:[address] 10/27/23 12:34 CT angio head w con, CT head/brain wo con, CT angio neck with con CLINICAL HISTORY: 62 years-old Female with a fib, vertigo, not anticoag. Acute stroke like symptoms COMPARISON STUDY: Brain MRI 06/05/2023 TECHNIQUE: Unenhanced axial CT scan of the brain is performed. Subsequently, following the IV administration of 118 cc of Optiray, CT angiogram of the head and neck was performed from the aortic arch to the skull apex. Images are reviewed in the axial, sagittal, and coronal planes. 3-D MIPS images are created and assessed. IV contrast was administered without complication. All measurements were obtained according to NASCET criteria. A dose lowering technique was utilized adhering to the principles of ALARA. CT DOSE: 1112.49 mGy.cm FINDINGS: CT BRAIN: There is no acute intracranial hemorrhage, midline shift, hydrocephalus, intracranial mass, territorial ischemia or abnormal extra-axial collections. Mild involutional changes with ex vacuo ventriculomegaly. Right-sided gland repair. No abnormal intra-axial or extra-axial enhancement. Mastoid air cells and middle ear cavities are clear. No calvarial fracture. Paranasal sinuses are clear. CT ANGIOGRAM OF THE HEAD AND NECK: Median sternotomy. Atherosclerosis of the thoracic aortic arch. There is patency of the nominate and imaged subclavian arteries. The common carotid arteries are widely patent. Moderate atherosclerotic plaque of the carotid bulbs and proximal cervical segments of the internal carotid arteries results in less than 50% stenosis bilaterally. The bilateral anterior and middle cerebral arteries are also patent. Dominant left vertebral artery. The vertebral arteries are patent bilaterally. The majority of the right vertebral artery terminates into the right PICA. The basilar and posterior cerebral arteries are patent. There is no aneurysm, high-grade stenosis, or proximal branch occlusion identified. Dural sinuses appear patent. Lung apices are clear. Subcentimeter hypodense thyroid nodules. Probable left supraclavicular lipoma measuring approximately 7 cm. 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 Degenerative changes of the cervical spine. IMPRESSION: 1. No acute intracranial abnormality. 2. Atherosclerosis without aneurysm, dissection, high-grade stenosis or arterial occlusion identified. ACT 112: Negative or not required by law. The above report was generated using voice recognition software. It may contain grammatical, syntax or spelling errors. Electronically signed by: Rafa Leslie M.D. 10/27/2023 2:45 PM Discharge Plan Visit Data Chief Complaint: Hyperglycemia Stated Complaint: DIZZINESS, HYPERGLYCEMIA ED Provider: Darek Lees Discharge Problem: Acute hyponatremia, Hypoxia, Acute hyperglycemia, Acute hypokalemia, Dizziness, A-fib Forms Stand Alone Forms: My [facility] Prescriptions Prescriptions: No Action atorvastatin [Lipitor] 40 mg tablet 40 mg PO DAILY torsemide 10 mg tablet 10 mg PO DAILY clopidogrel [Plavix] 75 mg tablet 75 mg PO DAILY levothyroxine 75 mcg tablet 75 mcg PO DAILY meclizine 25 mg tablet 50 mg PO BID metolazone 2.5 mg tablet 2.5 mg PO 2XWK Rx Instructions: SUNDAY & FRIDAYS trazodone 100 mg tablet 100 mg PO HS magnesium oxide 400 mg magnesium tablet 400 mg PO DAILY (DME) FreeStyle Keisha 2 [facility] See Rx Instructions .Route Qty: 1 0RF Rx Instructions: As directed clindamycin HCl 300 mg Capsule 600 mg PO DIRECTED PRN (Reason: PRIOR TO DENTAL APPT) Rx Instructions: TAKE 30-60 MINUTES PRIOR TO DENTAL APPT.. ammonium lactate 12 % lotion 1 applic TOPICAL DAILY Rx Instructions: APPLY TO FEET aspirin 81 mg Tablet,Delayed Release (Dr/Ec) 81 mg PO DAILY nystatin 100,000 unit/gram Powder 1 applic TOPICAL DIRECTED PRN (Reason: Skin Irritation) multivitamin with minerals Tablet 1 tab PO DAILY fluticasone propionate [Flonase] 50 mcg/actuation [place],Suspension 2 spray INTRANASAL DAILY Rx Instructions: administer into each nostril potassium chloride 10 mEq Tablet,Er Particles/Crystals 10 meq PO BID cranberry extract-vitamin C [Azo Cranberry Plus Vit C] 250-60 mg Capsule 2 cap PO TID melatonin 10 mg Tablet 10 mg PO HS insulin degludec [Tresiba FlexTouch U-200] 200 unit/mL (3 mL) Insulin Pen 30 unit SUBCUT HS Ozempic 2 mg/dose (8 mg/3 mL) pen injector 2 mg SUBCUT WK Rx Instructions: MONDAYS metformin 1,000 mg tablet 1,000 mg PO BID gabapentin 100 mg capsule 100 mg PO TID insulin aspart U-100 [Novolog FlexPen U-100 Insulin] 100 unit/mL (3 mL) Insulin Pen 0 unit subcut TIDM Rx Instructions: 2 UNITS PER 50 WHEN BSG IS OVER 200. metoprolol tartrate 25 mg tablet 25 mg PO BID Gaviscon 80-14.2 mg Tablet,Chewable 1 tab PO DIRECTED PRN (Reason: Gi Upset) Referrals Referrals: Gregory Rausch MD [Primary Care Provider] - Discharge Problem: A-fib Qualifiers: Atrial fibrillation type: unspecified Qualified Code(s): I48.91 - Unspecified atrial fibrillation
--- OUTSIDE RECORDS SUMMARY | 2023-10-27 12:06 | External Medical Summary | Summary of Care ---
Author Name Unknown Organization [facility] Address [address] [place] [address] Phone [phone] Care Team Providers Care Title Closer Name Role Phone Gregory Rausch MD Primary Care Provider [phone] Reason for Visit * Reason Onset Date Comments [facility]: Acute 10/27/2023 Encounter Details Date Type Department Care Team (Late st Contact Info) Description 10/27/2023 10:30 AM EST Scheduled Telephone [facility], [facility] [address] [place] [address] [facility], Nurse [facility] [address] [place] [address] Allergies Active Allergy Reactions Criticality Noted Date Comments Adhesive Tape 07/02/2017 Can tolerate band-aids Glycerin Other (Please comment) 03/12/2008 Topical agents with glycein-burning & itching Lactose 12/09/2014 Dairy - gas Lisinopril Cough 01/21/2010 Monosodium Glutamate Edema Other 03/12/2008 Hands and feet Penicillins Rash 11/14/2007 documented as of this encounter (statuses as of 10/27/2023) Medications Medication Sig Dispensed Refills Start Date End Date Status aspirin enteric coated 81 MG TBECIndications:Aorti c valve disorder Take 1 Tab by mouth daily. 90 Tab 11 09/30/2018 Active Multiple Vitamins-Minerals ([facility] SPECTRAVITE ADVANCED) TABS Take 1 Tab by mouth daily. 0 Active AZO Cranberry 250-30 MG Oral Tablet Take 2 Tablets by mouth in the morning and 2 Tablets at noon and 2 Tablets before bedtime. 0 Active BD Glucose 5 GM Oral Tablet Chewable (Glucose)Indications: DM type 2, not at goal (HCC) 3 every 15 minutes until glucose is > 100 mg/dL for hypoglycemia E11.9 100 Tab 3 07/06/2021 Active BaitianshiTouch Verio w/Device Kit Use up to 4 times a day E11.9 1 Kit 0 02/10/2022 Active OneTouch Delica Lancets 33G TEST 4 TIMES DAILY DIRECTED, E11.9 400 Each 3 02/10/2022 Active Melatonin 10 MG Oral CapsuleIndications:sl eep Take 1 Capsule by mouth at bedtime. 0 Active Magnesium Oxide 400 (240 Mg) MG Oral Tablet (Mag-Ox) One tablet by mouth daily in the morning 90 Tablet 3 12/23/2022 Active Omnipod 5 G6 Pod (Gen 5) Use as directed. Use 1 pod every 3 days 30 Each 3 01/11/2023 Active Omnipod 5 G6 Intro (Gen 5) Kit Use as directed. Use to delivery insulin via insulin pump 1 Kit 0 01/11/2023 Active Fluticasone Propionate 50 MCG/ACT Nasal Suspension (Flonase)Indications: Dizziness Administer 2 Sprays into each nostril in the morning. 16 g 3 03/01/2023 Active Clopidogrel Bisulfate 75 MG Oral Tablet (pLAVix) TAKE 1 TABLET (75 MG) BY MOUTH IN THE MORNING 90 Tablet 2 05/05/2023 Active Levothyroxine Sodium 75 MCG Oral Tablet (Levoxyl)Indications: Hypothyroidism TAKE 1 TAB BY MOUTH DAILY FIRST THING IN AM, AT LEAST 30 MIN PRIOR TO BREAKFAST OR OTHER MEDICATIONS 90 Tablet 2 05/05/2023 Active OneTouch Verio In Vitro Strip (Glucose Blood) Use up to 4 times a day E11.9 100 Strip 11 07/26/2023 Active Potassium Chloride [facility] 10 MEQ Oral Tablet Extended ReleaseIndications:[place] on chronic heart failure with preserved ejection fraction (HFpEF) (HCC) Take 1 Tablet by mouth in the morning and 1 Tablet before bedtime. 180 Tablet 3 07/26/2023 Active Venelex External Ointment Apply topically to affected area 2 times a day. 0 06/29/2023 Active NovoLOG FlexPen 100 UNIT/ML Subcutaneous Solution Pen-injector (insulin aspart) Injected under the skin BEFORE MEALS, 3 times per day: 2 units per 50 when glucose is over 200 units. TDD: 50. ICD10: E11.9. 15 mL 2 07/31/2023 Active Tresiba FlexTouch 200 UNIT/ML Subcutaneous Solution Pen-injector (Insulin Degludec)Indications: Type 2 diabetes mellitus with hemoglobin A1c goal of less than 7.0% ([facility]),Type 2 diabetes mellitus with stage 3a chronic kidney disease, with long-term current use of insulin ([facility]) Inject 30 Units under the skin at bedtime. 6 mL 2 07/31/2023 Active BD Pen Needle Short U/F 31G X 8 MMIndications:Type 2 diabetes mellitus with hemoglobin A1c goal of less than 7.0% ([facility]),Type 2 diabetes mellitus with stage 3a chronic kidney disease, with long-term current use of insulin ([facility]) Use with insulin 4 times daily 400 Each 3 07/31/2023 Active Gaviscon 80-14.2 MG Oral Tablet Chewable (Alum Hydroxide-Mag Trisilicate) Take by mouth as needed. 0 Active Atorvastatin Calcium 40 MG Oral Tablet (Lipitor)Indications: Heart failure, systolic, due to idiopathic cardiomyopathy ([facility]),S/P aortic valve replacement,HTN, goal below 140/80,Dyslipidemia, goal LDL below 70 TAKE 1 TABLET BY MOUTH DAILY. TO PREVENT HEART ATTACK/STROKE, PROTECT KIDNEY, AND CHOLESTEROL 90 Tablet 1 08/20/2023 Active Meclizine HCl 25 MG Oral Tablet (Antivert)Indications :Muscle tension headache TAKE 2 TABLETS BY MOUTH TWICE A DAY 360 Tablet 3 08/20/2023 Active metFORMIN HCl 1000 MG Oral Tablet (Glucophage) Take 1 Tablet by mouth 2 times a day with morning and evening meals. 180 Tablet 3 08/31/2023 Active Torsemide 10 MG Oral Tablet (Demadex) Take 1 Tablet by mouth in the morning. 0 Active Insulin Aspart 100 UNIT/ML Injection Solution (NovoLOG)Indications: Type 2 diabetes mellitus with hemoglobin A1c goal of less than 7.0% ([facility]) Use up to 50 units per day in Omnipod. 5 Each 3 09/11/2023 Active BD Insulin Syringe 25G X 1" 1 ML (Insulin Syringe-Needle U-100) Use daily with omnipod as directed DX E11.9 100 Each 5 09/20/2023 Active Curity Alcohol Swabs Pad Use as directed as needed 200 Each 5 09/20/2023 Active Metoprolol Tartrate 25 MG Oral Tablet (Lopressor) Take 1 Tablet by mouth in the morning and 1 Tablet before bedtime. 60 Tablet 5 09/26/2023 Active metOLazone 2.5 MG Oral Tablet (Zaroxolyn)Indication s:Acute on chronic heart failure with preserved ejection fraction (HFpEF) ([facility]) One tablet one morning twice per week (Sunday and Sunday), 30 minutes prior to torsemide dose 30 Tablet 3 10/02/2023 Active Ammonium Lactate 12 % External Lotion (Lac-Hydrin) Apply to both feet once daily. 400 g 3 10/02/2023 Active Nystatin 047932 UNIT/GM External Powder (Nystop)Indications:C andidal intertrigo Apply topically to affected area 3 times a day. Apply to affected areas 60 g 1 10/02/2023 Active Aquaphor External Ointment Apply topically to affected area as needed for Dry Skin. Apply to face 420 g 0 10/02/2023 Active Ozempic (2 MG/DOSE) 8 MG/3ML Subcutaneous Solution Pen-injector (Semaglutide (2 MG/DOSE))Indications: Type 2 diabetes mellitus with hemoglobin A1c goal of less than 7.0% ([facility]),Type 2 diabetes mellitus with diabetic mononeuropathy, with long-term current use of insulin ([facility]),Type 2 diabetes mellitus with both eyes affected by mild nonproliferative retinopathy and macular edema, with long-term current use of insulin ([facility]),Type 2 diabetes mellitus with stage 3a chronic kidney disease, with long-term current use of insulin ([facility]) Inject 2 mg under the skin once a week. 9 mL 3 10/01/2023 Active traZODone HCl 100 MG Oral Tablet (Desyrel) Take 1 Tablet by mouth at bedtime. 0 Active Dexcom G6 TransmitterIndication s:Type 2 diabetes mellitus with hemoglobin A1c goal of less than 7.0% ([facility]) Use as directed. Use 1 transmitter every 90 days E 11.9 1 Each 3 10/18/2023 Active Dexcom G6 SensorIndications:Typ e 2 diabetes mellitus with hemoglobin A1c goal of less than 7.0% ([facility]) Use as directed. Use 1 sensor every 10 days E 11.9 9 Each 3 10/18/2023 Active Gabapentin 100 MG Oral Capsule (Neurontin)Indication s:Polyneuropathy associated with underlying disease (HCC) TAKE 1 CAPSULE BY MOUTH EVERY DAY IN THE MORNING , AT NOON, AND BEFORE BEDTIME 90 Capsule 0 10/23/2023 Active documented as of this encounter (statuses as of 10/27/2023) Active Problems Problem Noted Date Diagnosed Date Thrombocytopenia 09/12/2023 Obesity, Class I, BMI 30.0-34.9 (see actual BMI) 07/31/2023 Splenic infarct 06/14/2023 Type 2 diabetes mellitus wit h diabetic peripheral angiopathy without gangrene 03/01/2023 Type 2 diabetes mellitus wit h both eyes affected by mild nonproliferative retinopathy and macular edema, with long-term current use of insulin 02/22/2023 Type 2 diabetes mellitus wit h stage 3a chronic kidney disease, with long-term current use of insulin 08/29/2022 Last Assessment & Plan: Current Status: Actively exacerbating Degree of Condition Awareness: Demonstrates very good awareness of condition, disease course, and prognosis "RED FLAG" Diabetic symptoms: o none Goal HgbA1c o <7 Diabetic Complications o Vascular (examples: PVD, PAD, CAD, CVA) o Renal (example: CKD, Proteinuria, Dialysis) Medication Regimen o Metformin o Bolus/Short Acting Insulin o GLP-1 Agonist (ex: Victoza, Trulicity, Ozempic) o Other: long actin insulin DM Secondary Prevention o CORINA Inhibitor / ARB o Moderate-High Intensity Statin o Aspirin Chronic kidney disease, stage 3a 10/04/2020 Overview: Per CKD protocol Cystoid macular edema of right eye 09/28/2020 Coronary artery disease invo lving [place] coronary artery of [place] heart without angina pectoris 12/16/2019 Last Assessment & Plan: No angina reported -continue atorvastatin 40 mg daily, plavix 75 mg daily, Toprol tartrate 100 mg QAM 50 mg QHS Medical marijuana use 12/09/2019 Schizoaffective disorder, bipolar type 9 Last Assessment & Plan: Stable -continue vraylar 3 mg daily, buspar 15 mg BID, lyrica 75 mg BID, trazadone 100 mg HS S/P drug eluting coronary stent placement 2018 Cervical disc disorder with radiculopathy 2018 Hoarding disorder 09/20/2018 Social anxiety disorder 09/20/2018 H/O bilateral mastectomy 06/28/2018 LEYVA (nonalcoholic steatohepatitis) 06/28/2018 Last Assessment & Plan: Most recent liver studies normal. HTN, goal below 130/80 05/29/2018 Last Assessment & Plan: BP stable -continue regimen as noted below. S/P TAVR (transcatheter aortic valve replacement ) 11/06/2017 Overview: Bovine valve Persistent insomnia 09/04/2017 Benign paroxysmal positional vertigo due to bilateral vestibular disorder 02/01/2017 History of colon cancer 10/01/2014 History of breast cancer 10/01/2014 Acquired hypothyroidism 02/19/2014 Last Assessment & Plan: Continue Synthroid DANYELLE on CPAP 10/31/2010 Type 2 diabetes mellitus wit h hemoglobin A1c goal of less than 7.0% 09/02/2010 Overview: ICD-10 update of inactive term Last Assessment & Plan: Pt having lows almost every night. Followed by endocrinology. Appears she no showed MTM and last endocrine appt. TT to Dr. Garcia for recommendation evening insulin. Dose humulin reduced. --humulin R 340 units in am and lunch. If eating late supper, take 70 (was on 100 units) in evening. Needs to reschedule appt with endocrine and MTM. She is to be logging her blood sugars to review with endocrinology --has noé--last hgba1c 04/14/22 8.2 --metformin 850mg BID --ozemipic 1mg weekly Dyslipidemia 11/14/2007 Overview: Per Lipid Taxonomy. documented as of this encounter (statuses as of 10/27/2023) Resolved Problems Problem Noted Date Diagnosed Date Resolved Date Widened pulse pressure 06/19/202307/31 COVID-19 virus infection 06/19/202303/2023 Hyperglycemia due to diabetes mellitus 06/15/2023 07/31/2023 C. difficile colitis 06/14/2023 023 Pleural effusion 06/14/2023 07/31/2023 Hypokalemia 06/14/2023 07/31/2023 Hypophosphatemia 06/14/2023 07/31/2023 Hyponatremia 06/14/2023 07/31/2023 Encephalopathy acute 06/13/2023 023 Hypocalcemia 06/13/2023 07/31/2023 Schizoaffective disorder 06/13/202303/2023 Hypothyroidism 06/13/2023 07/31/2023 Pneumoperitoneum 06/06/2023 07/31/2023 Liver cirrhosis secondary to nonalcoholic steatohepatitis ([facility]) 03/16/2023 04/18/2023 Last Assessment & Plan: Compliant with lactulose Depression, unspecified 03/01/202303/25 Disease of pancreas, unspecified 03/01/2023 04/18/2023 BMI 40.0-44.9, adult 03/01/2023 023 Type 2 diabetes mellitus wit h diabetic cataract, with long-term current use of insulin 02/22/2023 04/18/2023 Morbid obesity 02/22/2023 07/31/2023 Atherosclerosis of aorta 04/26/2022 Last Assessment & Plan: BP at goal. --asa 81mg daily --atorvastatin 40mg daily Hypertensive heart and kidne y disease with chronic diastolic congestive heart failure and stage 3a chronic kidney disease 03/09/202203/25 Last Assessment & Plan: Current Status: "Stable" for patient / At or near baseline Degree of Condition Awareness: Demonstrates very good awareness of condition, disease course, and prognosis "RED FLAG" HF Symptoms: o Leg Swelling (Examples: "I can't wear certain socks or shoes", "My pants feel tight") o Increased dyspnea on exertion (Example: "I can't walk to the kitchen or up the stairs") Current Heart Failure Classifications: o With ordinary activity such as doing housework, yard work or shopping ([employer] [place] [facility] CLASS II) Diagnostic Review: Recent Labs Units 03/15/23 1519 02/13/23 1038 05/10/21 1030 05/04/21 1323 LEFT VENTRICULAR EJECTION FRACTION % -- -- -- 65 ESTIMATED GLOMERULAR FILTRATION RATE - [facility] mL/min 64 -- < > -- EGFR-OUTSIDE LAB -- -- < > -- HGB - [facility] g/dL -- 13.6 < > -- HEMOGLOBIN-OUTSIDE LAB -- -- < > -- < > = values in this interval not displayed. Medication Regimen: o Beta Gena Therapy: Metoprolol Tartrate o CORINA Inhibitor/ARB Therapy: Valsartan o Diuretic therapy: Torsemide Metolazone Aldactone Self - Management Plan o Add metolazone (Zaroxolyn) 2.5-5mg for 1 days. If using a potassium supplement, double the dose of the supplement will be given on the day of and on the day after the metolazone Exacerbation Plan o Other/Additional Comments: Taken additional dose of metolazone Type 2 diabetes mellitus wit h stage 3a chronic kidney disease, without long-term current use of insulin 03/09/2022 03/12/2022 Type 2 diabetes mellitus with cataract 03/09/2022 09/08/2022 Acute cystitis without hematuria 04/13/2021 09/08/2022 Last Assessment & Plan: Klebsiella growing from 06/15 -finish omnicef Subconjunctival hemorrhage of right eye 04/13/2021 11/09/2021 Age-related nuclear cataract of right eye 09/16/2020 2020 Combined forms of age-relate d cataract of both eyes 08/09/2020 04/18/2023 Dry eyes 08/09/2020 2020 SHAW (dyspnea on exertion) 01/14/2020 03 / Incisional hernia 10/10/2019 12/09/2019 Acute respiratory distress 10/10/2019 0 12/20/2019 Follow-up exam 05/12/2019 07/04/2019 Controlled type 2 diabetes m keya with cataract 01/23/2019 12/09/2019 Body mass index (BMI) of 40. 0 to 44.9 in adult 12/30/2018 03/30/2019 Overview: Per Obesity protocol #1 - - Cervical spinal stenosis 11/11/2018 Body mass index (BMI) of 45. 0 to 49.9 in adult 11/04/2018 01/01/2019 Overview: Per Obesity protocol #1 - Diabetic cataract 08/26/2018 2020 Type 2 diabetes mellitus wit h diabetic mononeuropathy, with long-term current use of insulin 08/23/2018 04/18/2023 Last Assessment & Plan: Last hgba1c 8.2 04/14. Having frequent lows at night -reinforced only use insulin 70 u HS if eating a full Evening meal NOT 100 u -continue metformin 850 mg BID, ozempic weekly -MTM appointment scheduled Nocturnal hypoxemia 12/28/2017 06/28/20 18 Recurrent major depressive d isorder, in full remission 12/05/2017 2020 ANIVAL (generalized anxiety disorder) 12/05/2017 04/18/2023 Last Assessment & Plan: Stable -continue trazodone at night as needed Body mass index (BMI) of 40. 0 to 44.9 in adult 10/02/2017 11/07/2018 Overview: Per Obesity protocol #1 - Per Obesity protocol #1 - Per Obesity protocol #1 Body mass index (BMI) of 45. 0 to 49.9 in adult 09/04/2017 10/04/2017 Overview: Per Obesity protocol #1 - Per Obesity protocol #1 Renal cyst, right 08/17/2017 08/26/2018 Acute on chronic diastolic h eart failure due to valvular disease 07/24/2017 08/17/2017 Body mass index (BMI) of 40. 0 to 44.9 in adult 06/25/2017 09/06/2017 Overview: Per Obesity protocol #1 Muscle tension headache 02/01/201707/26 Depression with anxiety 12/21/201601/2018 Ventral hernia without obstr uction or gangrene 12/21/2016 12/09/2019 HTN, goal below 140/90 11/29/201505/29 Overview: Per HTN Protocol #27. Cubital tunnel syndrome on right 12/24/2014 12/21/2016 Carpal tunnel syndrome 11/23/201412/21 Vertigo 10/01/2014 12/21/2016 Sensorineural hearing loss, bilateral 10/01/2014 12/21/2016 Subjective tinnitus 10/01/2014 12/22/19 17 Severe obesity with body mas s index (BMI) of 35.0 to 39.9 with serious comorbidity 09/04/2014 Overview: ICD-10 update of inactive diagnosis Pure hyperglyceridemia 06/22/201412/21 DM type 2, goal: symptom mgmt 02/19/2014 12/21/2016 Diabetes mellitus 01/05/2014 12/21/2016 LEYVA RESEARCH OTHER*[id number] 01/05/2014 12/21/2016 Axillary pain 11/03/2013 12/21/2016 Obesity, morbid (more than 1 00 lbs over ideal weight or BMI > 40) 11/03/2013 09/04/2014 Other chest pain 11/03/2013 12/21/2016 Heart failure, diastolic, due to HTN 07/23/2013 08/29/2022 Heart failure, systolic, due to idiopathic cardiomyopathy 07/23/2013 12/21/2016 HTN, goal below 140/80 05/13/201212/29 Overview: Per HTN Protocol #27. Obesity, Class III, BMI 40-4 9.9 (morbid obesity) 04/16/2012 09/04/2014 PAIN NON-CARDIAC CHEST PAIN - normal cors on cath 09/201008/26/2011 12/21/2016 FOLLOWING SURGERY, UNSPECIFI ED ([facility] 08/25/2011) 08/26/2011 12/21/2016 ADVANCE DIRECTIVE INFORMATION 04/17/2011 12/21/2016 Overview: Yes, Patient instructed to provide copy of advance directive for provider to review and to be scanned into Electronic Medical Record ADVANCE DIRECTIVE INFORMATION 03/01/2011 12/21/2016 Overview: Yes, Patient instructed to provide copy of advance directive for provider to review and to be scanned into Electronic Medical Record [facility] V710 Clinical Trial*[id number] 12/22/2010 04/14/2011 S/P aortic valve replacement 12/01/2010 08/26/2011 S/P AORTIC VALVE REPLACEMENT - #25 pericardial Mc valve 11/01/2010 06/28/2018 Overview: Aortic valve replacement with #25 pericardial Mc valve, model [id number], serial number [id number] (Dr. Walker) [facility] V710 Clinical Trial*[id number] 10/18/2010 11/21/2010 Body mass index (BMI) of 40.0-44.9 in adult 08/29/2010 04/16/2012 Overview: ICD-10 update of inactive term Medical home patient encounter 07/11/2010 04/18/2023 Inflammatory disorder of breast 07/11/2010 12/21/2016 Other hammer toe (acquired) 06/10/2010 12/21/2016 Plantar fibromatosis 06/10/2010 017 Obesity, morbid (more than 1 00 lbs over ideal weight or BMI > 40) 03/08/2010 03/05/2014 Overview: Per Obesity Protocol, #19 ICD-10 update of inactive term HTN, GOAL BELOW 130/80 10/21/200905/16 Overview: Per HTN Taxonomy. Dyslipidemia, goal LDL below 70 09/09/2009 11/09/2021 Overview: Per Lipid Taxonomy. Type 2 diabetes mellitus wit h hemoglobin A1c goal of less than 7.0% 07/22/2009 09/02/2010 Overview: Per Diabetes Taxonomy. ICD-10 update of inactive term Hypertensive heart failure, severity unknown 9 07/23/2013 Major depressive disorder 02/24/2009 Overview: ICD-10 update of inactive term Intestinal infection due to intestinal E. coli infection 04/09/2008 12/21/2016 Encounter for antineoplastic chemotherapy 03/05/2008 12/21/2016 Drug-induced neutropenia 03/05/2008 Anemia in neoplastic disease 03/05/2008 12/21/2016 MAL JOSE BREAST UP-OUTER - pT 2 pN2 M0, stage IIIa 02/13/2008 07/26/2017 Overview: pT2 pN2 M0, stage IIIa, intermediate grade, infiltrating ductal carcinoma of right breast associated with ductal carcinoma in situ, triple negative Type 2 diabetes mellitus wit h hemoglobin A1c goal of less than 7.0% 01/02/2008 07/22/2009 Overview: Per Diabetes Taxonomy. ICD-10 update of inactive term HTN, goal below 140/90 11/14/200710/21 Overview: Per HTN Taxonomy. DM type 2, not at goal 11/14/200703/04 Malignant neoplasm of colon 11/14/2007 12/21/2016 Aortic valve stenosis, severe 12/05/2017 documented as of this encounter (statuses as of 10/27/2023) Immunizations Name Administration Dates Next Due COVID-19 mRNA, LNP-s, No Pre serve, 2-Dose Series (Moderna) 10/25/2021,02/16/2021,01/18/2021 HEP A - Hepatitis A (Adult > 18 yrs) 06/07/2018, 12/05/2017 Hepatitis B, 20+ yrs 06/07/2018,01/08/20 18,12/05/2017,06/15,10/27/2013,09/12/2013 Pneumococcal Conjugate Vacci ne, 20-valent ([id number]) 06/22/2023 Pneumococcal Polysaccharide PPV23 (Pneumovax) 01/02/2008 Seasonal Influenza, PF, 6 M & above, IM , (FluLaval or Fluzone) 06/22/2023,05/25/2021,07/14/2020 Seasonal Influenza, QUAD, wi th Preserv, 6 mons & Above, 0.5 mL, IM 05/02/2018 Seasonal Influenza, Quadriva lent Hd (Fluzone Hd) 06/29/2022 Seasonal Influenza, Quadriva lent, No Preserve, IM 05/28/2019,05/02/2018,06/24/2017 Seasonal Influenza, Split, I IV3, With Preserve, Inj 11/26/2016,06/15/2014,09/12/2013,09/30,07/17/2011,08/17/2010,09/21/2009 ,07/18/2008 TDAP (age 10 and older)(Boostrix) 06/28/2018 TDAP (age 11 and older)(Adacel) 06/09/2008 Zoster Vaccine Recombinant (Shingrix) ,11/06/2019,08/22/2019,07/24 documented as of this encounter Social History Tobacco Use Types Packs/Day Years Used Date Smoking Tobacco: Never Smokeless Tobacco: Never Alcohol Use Standard Drinks/Week Comments No 0 (1 standard drink = 0.6 oz pur e alcohol) PHQ-2 Answer Date Recorded PHQ Adult Total Score 16 2020 Hunger Vital Sign Answer Date Recorded Within the past 12 months, y ou worried that your food would run out before you got the money to buy more. Never true 07/26/20 23 Within the past 12 months, t he food you bought just didn't last and you didn't have money to get more. Never true 07/26/2023 Sex and Gender Information Value Date Recorded Sex Assigned at Female 12/27/2018 9:43 AM EDT Gender Identity Female 12/27/2018 9:43 AM EDT Sexual Orientation Straight 12/27/2018 9: 43 AM EDT Job Start Date Occupation Industry Not on file Not on file Not on file documented as of this encounter Functional Status Functional Status Response Date of Assess ment Are you deaf or do you have serious difficulty h earing? No 11/06/2017 Are you blind or do you have serious difficulty seeing, even when wearing glasses? Yes 11/06/2017 Do you have serious difficul ty walking or climbing stairs? (5 years old or older) No 11/06/2017 Do you have difficulty dress ing or bathing? (5 years old or older) No 11/06/2017 Because of a physical, menta l, or emotional condition, do you have difficulty doing errands alone such as visiting a doctor s office or shopping? (15 years old or older) No 11/06/19 18 Cognitive Status Response Date of Assessm ent Because of a physical, menta l, or emotional condition, do you have serious difficulty concentrating, remembering, or making decisions? (5 years old or older) No 11/06/2017 documented as of this encounter Miscellaneous Notes * Telephone Encounter - Arina Carrasquillo RN - 10/27/2023 11:19 AM EST Spoke with daughter Jovita and let her know EMS was called and they are on their way now. * Telephone Encounter - Corwin Nelson RN - 10/27/2023 10:43 AM EST Daughter calling in asking if provider had any recommendations regarding dizziness. * Telephone Encounter - Emmy Hugo RN - 10/27/2023 10:21 AM EST [facility] Telephonic Nurse Follow-Up Call [facility] Subprogram: Focused Care Management (3-9 months) Follow Up Call Type: Same-day acute follow up Acute issue requiring follow-up call: Other: acute dizziness since 10/26/23 Objective: 10/15/2023 2:11 PM 10/15/2023 10:51 AM 09/06/2023 10:29 AM 07/31/2023 10:46 AM 07/28/2023 12:01 PM VITALS ACROSS ENCOUNTERS BP 100/68 118/64 120/64 130/62 140/72 Pulse 92 90 80 76 90 Weight 72.6 kg 70.3 kg 74.4 kg 75.3 kg BMI 33.11 BMI 32.32 kg/m2 31.31 kg/m2 33.12 kg/m2 33.53 kg/m2 Lab Results Component Value Date PROTEIN - [facility] 7.1 10/15/2023 WBC AUTO - [facility] 10.38 10/15/2023 Lab Results Component Value Date WBC AUTO - [facility] 10.38 10/15/2023 HGB - [facility] 12.3 10/15/2023 PLATELET AUTO - [facility] 175 10/15/2023 Lab Results Component Value Date SODIUM - [facility] 131 (L) 10/15/2023 POTASSIUM - [facility] 3.6 10/15/2023 MAGNESIUM - [facility] 2.1 10/15/2023 CO2 - [facility] 26 10/15/2023 CREATININE - [facility] 1.3 (H) 10/15/2023 ESTIMATED GLOMERULAR FILTRATION RATE - [facility] 44 (L) 10/15/2023 ALBUMIN - [facility] 4.2 10/15/2023 AST - [facility] 18 10/15/2023 ALT - [facility] 11 10/15/2023 ALKALINE PHOSPHATASE - [facility] 95 10/15/2023 No results found for: "PRO BNP", "LEFT VENTRICULAR EJECTION FRACTION" Remote Patient Monitoring: NONE Oxygen Needs: NO supplemental oxygen needs identified DME Needs: NO DME needs identified Medications: No medication or dose adjustments made during acute episode Subjective: Condition Status: New symptoms Current Concerns: Dizziness - starting last night 10/26/23 Room spinning with sitting or laying When getting up - balance off Head "doesn't feel good" trying to get a head ache but not coming through Feels keeping hydrated however reports dry mouth Last night blood sugar was 236 Disposition: Routed to [facility] and/or [facility] Care Team for further advice [facility] personally phoned patient & recommended ED evaluation - patient is agreeable. Will place on for PC f/u tomorrow 10/28/23. Future Visits Scheduled: Future Appointments-next 60 days Date/Time Provider Specialty Dept Phone 10/27/2023 10:30 AM Chip, Nurse Rashard Rose [facility] [phone] 10/29/2023 11:30 AM Pharmacist1, [facility] [phone] 10/30/2023 9:30 AM (Arrive by 9:15 AM) Anjali Alanis LCSW Psychology [phone] 11/21/2023 9:20 AM (Arrive by 9:05 AM) Gregory Rausch MD Family Medicine [phone] 12/03/2023 12:30 PM Jaycee Sorto RN [facility] [phone] 12/06/2023 8:45 AM Ramsey Burnett, DO Ophthalmology [phone] 12/14/2023 1:15 PM Ramsey Burnett DO Ophthalmology [phone] 01/11/2024 1:15 PM Ramsey Burnett DO Ophthalmology [phone] 02/04/2024 10:20 AM (Arrive by 10:05 AM) Gregory Rausch MD Family Medicine [phone] Ailin Hugo RN [facility] Knife Changer/ [facility] Toll Free Number: documented in this encounter Plan of Treatment Upcoming Encounters Date Type Department Care Team (Latest Contact Info) Description 10/28/2023 3:00 PM EST Scheduled Telephone [facility], [address] [place] [address] [facility], Nurse [facility] [address] [place] [address] 10/29/2023 11:30 AM EST Pharmacy Pharmacy, [facility] [address] [facility] [place] [address] Pharmacist1, [facility] [address] [facility] [place] [address] 10/30/2023 9:30 AM EST Telemedicine Psychology, [place] [address] [place] [address] Anjali Alanis LCSW [facility] [place] [address] 11/21/2023 9:20 AM EST Office Visit Family Practice [facility] [address] [place] [address] Gregory Rausch MD [address] [place] [address] 12/03/2023 12:30 PM EDT Home Visit [place] [place], [facility] [address] [place] [address] Jaycee Sorto RN [address] [place] [address] 12/05/2023 10:24 AM EDT Hospital Encounter [facility], Operating Room [facility] [address] [place] [phone] Ramsey Burnett DO [address] [place] [address] 12/05/2023 10:24 AM EDT - 12/05/2023 11:17 AM EDT Surgery [facility], Operating Room [facility] [address] [place] [phone] Ramsey Burnett DO [address] [place] [address] LEFT EXTRACAPSULAR CATARACT REMOVAL COMPLEX WITH IOL 12/06/2023 8:45 AM EDT Office Visit Ophthalmology, [facility] [address] [place] [address] Ramsey Burnett DO [address] [place] [address] 12/14/2023 1:15 PM EDT Office Visit Katerina See [address] [place] [address] Ramsey Burnett, DO [address] [place] [address] 01/11/2024 1:15 PM EDT Office Visit Ophthalmology, [place] [address] [place] [address] Ramsey Burnett, DO [address] [place] [address] 02/04/2024 10:20 AM EDT Office Visit [facility] [address] [place] [address] Gregory Rausch MD [address] [place] [address] Scheduled Procedures Name Priority Associated Diagnoses Date/Ti me EXTRACAPSULAR CATARACT REMOV AL COMPLEX WITH IOL Cataract 12/05/2023 10:24 AM EDT COLONOSCOPY FLEXIBLE PROXIMA L DIAGNOSTIC Recall History of colon polyps ESOPHAGOGASTRODUODENOSCOPY ( EGD), FLEXIBLE, TRANSORAL, DIAGNOSTIC Recall Cirrhosis (HCC) COLONOSCOPY FLEXIBLE PROXIMA L DIAGNOSTIC Recall Personal history of colonic polyps Health Maintenance Due Date Last Done Comments HIV Screening 1975 Depression, Most Recent Score >= 10 (will fire each visit until score < 10) 12/18/2020 2020 Diabetic Foot Exam 2021 2020, 0 12/05/2018, 12/05/2017, Additional history exists COVID-19 Vaccine ( season) 2023 10/25/2021, 02/16/2021, 01/18/2021 Albumin/Creatinine Ratio 03/09/20242 023, 12/22/2022, 05/05/2021, Additional history exists HbA1c 03/19/2024 09/18/2023, 110 03/2023, 04/09/2023, Additional history exists GFR 04/14/2024 10/15/2023, 110 05/2023, 07/31/2023, Additional history exists CKD PHOS USE SMARTSET 20467 06/18/2024 09/2 01/2023, 06/16/2023, 06/15/2023, Additional history exists Diabetic Eye Exam 09/13/2024 09/13/2023, , 09/13/2023, Additional history exists B-12 09/18/2024 09/18/2023, 08/24, 2020, Additional history exists CKD HGB USE SMARTSET 21682 10/15/202410/15, 07/31/2023, 07/31/2023, Additional history exists TSH 10/15/2024 10/15/2023, 05/25, 02/13/2023, Additional history exists COLONOSCOPY-EVERY 3 YRS AGES 18-100 06/27/2026 06/27/2023, 09/13/2022, 09/13/2022, Additional history exists DTaP,Tdap,and Td Vaccines (3 - Td or Tdap) 06/28/2028 06/28/2018, 06/09/2008 Hepatitis C Screening Completed 03/29/2017 Hepatitis B Completed 06/07/2018, 12/23, 12/05/2017, Additional history exists Zoster Vaccines Completed 11/29/2019, 10/25, 08/22/2019, Additional history exists Influenza Vaccine (FLU shot) Completed , 06/29/2022, 05/25/2021, Additional history exists Pneumococcal Vaccine: Pediatrics (0 to 5 Years) and At-Risk Patients (6 to 64 Years) Completed 06/22/2023, 01/02/2008 GARDASIL-HPV IMMUNIZATION SERIES Aged Out No longer eligible based on patient's age to complete this topic MENINGOCOCCAL (MENACTRA/MENVEO) Aged Out No longer eligible based on patient's age to complete this topic documented as of this encounter Medical Devices Implanted Type Area Wind Technician Device Identifier Shelf Expiration Date Model / Serial / Lot Cath Roselia Single Lumen - [id number] Implanted:Qty : 1 on 03/12/2008 at OR [facility] Left: Chest [employer] *DO NOT USE* 07/25/2012 21-4053-24 / / [id number] Valve Tarsha Aortic [id number] - [id number] Implanted:Qty : 1 on 11/01/2010 at OR [facility] N/A: Heart [employer] DANIEL 05/20/2012 [id number]-25 / / [id number] Mesh Soft [id number] - [id number] Implanted:Qty : 1 on 10/10/2019 by Gigi Hendrickson MD at [place] [facility] N/A: Abdomen CR BARD : DAVOL [id number] 05/21/2024 [id number] / / [id number] Lens 22.5 Sn60wf - [id number] - [id number] Implanted:Qty : 1 on 09/15/2020 by Renaldo Cook, Cece Acosta MD at OR [facility] Right: Eye IVA : SURGICAL [id number] 05/13/2025 SN60 WF.[id number] / [id number] / [id number] documented as of this encounter Advance Directives Latest Code Status on File Code Status Date Activated Date Inactivated Comments Full Code 06/06/2023 5:33 PM 06/22/2023 4:15 PM This order reflects the patients wishes and were consensually agreed upon. Question Answer Comments Discussion of Advance Directives occurred with: Not Discussed due to patient's condition Code Status History Code Status Date Activated Date Inactivated Comments Full Code 10/10/2019 6:13 PM 10/17/2019 1:58 PM This order reflects the patients wishes and were consensually agreed upon. Question Answer Comments Discussion of Advance Directives occurred with: Not Discussed Full Code 10/10/2019 5:53 PM 10/10/2019 6:13 PM Question Answer Comments Discussion of Advance Directives occurred with: Not Discussed Does the patient have a Living Will? No Does the patient have Health Care Power of Room Attendant? No Full Code 10/10/2019 8:40 AM 10/10/2019 5:53 PM This order reflects the patients wishes and were consensually agreed upon. Full Code 11/06/2017 4:55 PM 11/07/2017 7:14 PM This order reflects the patients wishes and were consensually agreed upon. Healthcare Agents on File Name Relationship Healthcare Agent [facility] p Communication Gigi Rose Adult Child Health Care Repr esentative (appointed verbally by patient or by statute hierarchy) Care Teams Title Closer Relationship Specialty Start Date End Date Gregory Rausch MD [address] [place] [address] PCP - General Family Medicine 02/12/20 documented as of this encounter
--- OUTSIDE RECORDS SUMMARY | 2023-10-27 12:06 | External Medical Summary | Summary of Care ---
Author Name Unknown Organization [facility] Address [address] [place] [address] Phone [phone] Care Team Providers Care Industrial Waste Treatment Technician Name Role Phone Gregory Rausch MD Primary Care Provider [phone] Encounter Details Date Type Department Care Team (Late st Contact Info) Description 10/27/2023 Telephone Family Practice [address] [place] [address] [facility] Floor 1 [address] [place] [address] Vitaliy Thomas, DO [address] [facility] [address] [place] [address] Allergies Active Allergy Reactions Criticality Noted Date [...] hypoglycemia E11.9 100 Tab 3 07/06/2021 Active Argus LabsTouch Verio w/Device Kit Use up to 4 [...] ER 10 MEQ Oral Tablet Extended ReleaseIndications:Ac grindstone on chronic heart failure with preserved ejection [...] hemoglobin A1c goal of less than 7.0% ([facility]),Type 2 diabetes mellitus with stage 3a chronic kidney disease, with long-term current use of insulin ([facility]) Inject 30 Units under the skin at bedtime. 6 mL 2 07/31/2023 Active BD Pen Needle Short U/F 31G X 8 MMIndications:Type 2 diabetes mellitus with hemoglobin A1c goal of less than 7.0% ([facility]),Type 2 diabetes mellitus with stage 3a chronic kidney disease, with long-term current use of insulin ([facility]) Use with insulin 4 times daily 400 Each 3 07/31/2023 Active Gaviscon 80-14.2 MG Oral Tablet Chewable (Alum Hydroxide-Mag Trisilicate) Take by mouth as needed. 0 Active Atorvastatin Calcium 40 MG Oral Tablet (Lipitor)Indications: Heart failure, systolic, due to idiopathic cardiomyopathy ([facility]),S/P aortic valve replacement,HTN, goal below 140/80,Dyslipidemia, goal [...] hemoglobin A1c goal of less than 7.0% ([facility]) Use up to 50 units per day in Omnipod. 5 Each 3 09/11/2023 Active BD Insulin Syringe 25G X 1" 1 ML (Insulin Syringe-Needle U-100) Use daily with omnipod as directed DX E11.9 100 Each 09/20/2023 Active Curity Alcohol Swabs Pad Use as directed as needed 200 Each 09/20/2023 Active Metoprolol Tartrate 25 MG Oral Tablet (Lopressor) Take 1 Tablet by mouth in the morning and 1 Tablet before bedtime. 60 Tablet 5 09/26/2023 Active metOLazone 2.5 MG Oral Tablet (Zaroxolyn)Indication s:Acute on chronic heart failure with preserved ejection fraction (HFpEF) ([facility]) One tablet one morning twice per week (Sunday and Sunday), 30 minutes prior to torsemide dose 30 Tablet 3 10/02/2023 Active Ammonium Lactate 12 % External Lotion (Lac-Hydrin) Apply to both feet once daily. 400 g 10/02/2023 Active Nystatin 885105 UNIT/GM External Powder (Nystop)Indications:C andidal intertrigo Apply [...] hemoglobin A1c goal of less than 7.0% ([facility]),Type 2 diabetes mellitus with diabetic mononeuropathy, with long-term current use of insulin ([facility]),Type 2 diabetes mellitus with both eyes affected by mild nonproliferative retinopathy and macular edema, with long-term current use of insulin ([facility]),Type 2 diabetes mellitus with stage 3a chronic kidney disease, with long-term current use of insulin ([facility]) Inject 2 mg under the skin once a week. 9 mL 3 10/01/2023 Active traZODone HCl 100 MG Oral Tablet (Desyrel) Take 1 Tablet by mouth at bedtime. 0 Active Dexcom G6 TransmitterIndication s:Type 2 diabetes mellitus with hemoglobin A1c goal of less than 7.0% ([facility]) Use as directed. Use 1 transmitter every 90 days E 11.9 1 Each 10/18/2023 Active Dexcom G6 SensorIndications:Typ e 2 diabetes mellitus with hemoglobin A1c goal of less than 7.0% ([facility]) Use as directed. Use 1 sensor every 10 days E 11.9 9 Each 3 10/18/2023 Active Gabapentin 100 MG Oral Capsule (Neurontin)Indication s:Polyneuropathy associated with underlying disease ([facility]) TAKE 1 CAPSULE BY MOUTH EVERY DAY [...] eye 09/28/2020 Coronary artery disease invo lving [place] coronary artery of [place] heart without angina pectoris 12/16/2019 Last Assessment [...] 08/09/2020 2020 SHAW (dyspnea on exertion) 01/14/2020 Incisional hernia 10/10/2019 12/09/2019 Acute respiratory distress [...] -MTM appointment scheduled Nocturnal hypoxemia 12/28/2017 06/28/20 Recurrent major depressive d isorder, in full [...] 12/21/2016 Diabetes mellitus 01/05/2014 12/21/2016 LEYVA RESEARCH OTHER*[id number] 01/05/2014 12/21/2016 Axillary pain 11/03/2013 12/21/2016 Obesity, [...] cath 09/201008/26/2011 12/21/2016 FOLLOWING SURGERY, UNSPECIFI ED ([facility]SO 08/25/2011) 08/26/2011 12/21/2016 ADVANCE DIRECTIVE INFORMATION 04/17/2011 12/21/2016 Overview: Yes, Patient instructed to provide copy of advance directive for provider to review and to be scanned into Electronic Medical Record ADVANCE DIRECTIVE INFORMATION 03/01/2011 12/21/2016 Overview: Yes, Patient instructed to provide copy of advance directive for provider to review and to be scanned into Electronic Medical Record [facility] V710 Clinical Trial*[id number] 12/22/2010 04/14/2011 S/P aortic valve replacement 12/01/2010 08/26/2011 S/P AORTIC VALVE REPLACEMENT - #25 pericardial Mc valve 11/01/2010 06/28/2018 Overview: Aortic valve replacement with #25 pericardial Mc valve, model 2800TFX, serial number [id number] (Dr. Walker) [facility] V710 Clinical Trial*[id number] 10/18/2010 11/21/2010 Body mass index (BMI) of [...] 06/07/2018,01/08/20 18,12/05/2017,06/15,10/27/2013,09/12/2013 Pneumococcal Conjugate Vacci ne, 20-valent ([id number]) 06/22/2023 Pneumococcal Polysaccharide PPV23 (Pneumovax) 01/02/2008 Seasonal [...] encounter Miscellaneous Notes * Telephone Encounter - Vitaliy Thomas DO - 10/27/2023 10:49 AM EST Called patient carton stamper Having severe vertigo and falls Already taking meclizine 25 mg twice a day for vertigo Not helping She feels that this is different from previous episodes of vertigo Associated headache and falling Lives alone - daughter 4 hours away Denies focal weakness Denies slurred speech but speech is different to her her right now "slower and more difficult to say words" Dry mouth At this time patient and I agree that ED evaluation is warranted She is calling 911 now FYI to care team documented in this encounter Plan of Treatment Upcoming Encounters Date Type Department Care Team (Latest Contact Info) Description 10/28/2023 3:00 PM EST Scheduled Telephone [facility], [facility] [address] [facility] [place] [address] [employer], Nurse [facility] [address] [facility] [place] [address] 10/29/2023 11:30 AM EST Pharmacy Pharmacy, [employer] [address] [place] [address] Pharmacist1, [facility] [address] [place] [address] 10/30/2023 9:30 AM EST Telemedicine [facility], [address] [address] Anjali Alanis, INTERNET ECOMMERCE SPECIALIST [address] [place] [address] 11/21/2023 9:20 AM EST Office Visit Family Practice [facility] [address] [place] [address] Gregory Rausch MD [address] [facility] [place] [address] 12/03/2023 12:30 PM EDT [facility] [place] [address] Jaycee Sorto RN [address] [place] [address] 12/05/2023 10:24 AM EDT Hospital Encounter [facility], Operating Room [facility] [address] [place] [phone] Ramsey Burnett, DO [address] [place] [address] 12/05/2023 10:24 AM EDT - 12/05/2023 11:17 AM EDT Surgery OR [facility], Operating Room [facility] [address] [place] [phone] Ramsey Burnett, DO [address] [place] [address] LEFT EXTRACAPSULAR CATARACT REMOVAL COMPLEX WITH IOL 12/06/2023 8:45 AM EDT Office Visit Ophthalmology, [facility] [address] [place] [address] Ramsey Burnett, DO [address] [place] [address] 12/14/2023 1:15 PM EDT Office Visit Ophthalmology, [place] [address] [place] [address] Ramsey Burnett, [address] [place] [address] 01/11/2024 1:15 PM EDT Office Visit Ophthalmology, [place] [address] [place] [address] Ramsey Burnett, [address] [place] [address] 02/04/2024 10:20 AM EDT Office Visit [facility] [address] [facility] [place] [address] Gregory Rausch MD [address] [facility] [place] [address] Scheduled Procedures Name Priority Associated Diagnoses Date/Ti [...] season) 2023 10/25/2021, 02/16/2021, 01/18/2021 Albumin/Creatinine Ratio 03/09/202403/09/2 023, 12/22/2022, 05/05/2021, Additional history exists HbA1c 03/19/2024 09/18/2023, 11/0 03/2023, 04/09/2023, Additional history exists GFR 04/14/2024 10/15/2023, 11/0 05/2023, 07/31/2023, Additional history exists CKD PHOS USE SMARTSET 08214 06/18/2024 09/2 01/2023, 06/16/2023, 06/15/2023, Additional history exists Diabetic Eye Exam 09/13/2024 09/13/2023, , 09/13/2023, Additional history exists B-12 09/18/2024 09/18/2023, 08/24, 2020, Additional history exists CKD HGB USE SMARTSET 97206 10/15/202410/15, 07/31/2023, 07/31/2023, Additional history exists TSH [...] this encounter Medical Devices Implanted Type Area Cook Mayonnaise Device Identifier Shelf Expiration Date Model / Serial / Lot Cath Roselia Single Lumen - [id number] Implanted:Qty : 1 on 03/12/2008 at OR [facility] Left: [facility] *DO NOT USE* 07/25/2012 21-4053-24 / / [id number] Valve Tarsha Aortic [id number] - [id number] Implanted:Qty : 1 on 11/01/2010 at OR [facility] N/A: Heart [employer] 05/20/2012 2800TFX-25 / / [id number] Mesh Soft [id number] - [id number] Implanted:Qty : 1 on 10/10/2019 by Gigi Hendrickson MD [place] [facility] [place]/A: Abdomen CR BARD : DAVOL [id number] 05/21/2024 [id number] / / [id number] Lens 22.5 Sn60wf - [id number] - [id number] Implanted:Qty : 1 on 09/15/2020 by Renaldo Cook, Cece Acosta MD at OR [facility] Right: Eye IVA : SURGICAL [id number] 05/13/2025 SN60 WF.225 / [id number] / [id number] documented as of this encounter Advance [...] the patient have Health Care Power of Farm Operator? No Full Code 10/10/2019 8:40 AM 10/10/2019 5:53 PM This order reflects the patients wishes and were consensually agreed upon. Full Code 11/06/2017 4:55 PM 11/07/2017 7:14 PM This order reflects the patients wishes and were consensually agreed upon. Healthcare Agents on File Name Relationship Healthcare Agent [facility] p Communication Gigi Rose Adult Child Health Care Repr esentative (appointed verbally by patient or by statute hierarchy) Care Teams Industrial Waste Treatment Technician Relationship Specialty Start Date End Date Gregory Rausch MD [address] [place] [address] PCP - General Family Medicine 02/12/20 documented as of this encounter
--- OUTSIDE RECORDS SUMMARY | 2023-10-27 12:07 | External Medical Summary | Summary of Care ---
Author Name Unknown Organization [facility] Address [address] [place] [address] Phone [phone] Care Team Providers Care Sandblast Carver Name Role Phone Gregory Rausch MD Primary Care Provider [phone] Encounter Details Date Type Department Care Team (Late st Contact Info) Description 10/24/2023 Telephone [facility] [place] [address] [place] [address] Nataly Cobb CRNP [address] [facility] [place] [address] Allergies Active Allergy Reactions Criticality Noted Date Comments Adhesive Tape 07/02/2017 Can tolerate band-aids Glycerin Other (Please comment) 03/12/2008 Topical agents with glycein-burning & itching Lactose 12/09/2014 Dairy - gas Lisinopril Cough 01/21/2010 Monosodium Glutamate Edema Other 03/12/2008 Hands and feet Penicillins Rash 11/14/2007 documented as of this encounter (statuses as of 10/24/2023) Medications Medication Sig Dispensed Refills Start Date [...] hypoglycemia E11.9 100 Tab 3 07/06/2021 Active OneTouch Verio w/Device Kit Use up to 4 [...] ER 10 MEQ Oral Tablet Extended ReleaseIndications:Ac lime on chronic heart failure with preserved ejection [...] hemoglobin A1c goal of less than 7.0% ([facility]),Type 2 diabetes mellitus with stage 3a chronic kidney disease, with long-term current use of insulin ([facility]) Inject 30 Units under the skin at bedtime. 6 mL 2 07/31/2023 Active BD Pen Needle Short U/F 31G X 8 MMIndications:Type 2 diabetes mellitus with hemoglobin A1c goal of less than 7.0% ([facility]),Type 2 diabetes mellitus with stage 3a chronic kidney disease, with long-term current use of insulin ([facility]) Use with insulin 4 times daily 400 Each 3 07/31/2023 Active Gaviscon 80-14.2 MG Oral Tablet Chewable (Alum Hydroxide-Mag Trisilicate) Take by mouth as needed. 0 Active Atorvastatin Calcium 40 MG Oral Tablet (Lipitor)Indications: Heart failure, systolic, due to idiopathic cardiomyopathy ([facility]),S/P aortic valve replacement,HTN, goal below 140/80,Dyslipidemia, [...] hemoglobin A1c goal of less than 7.0% ([facility]) Use up to 50 units per [...] heart failure with preserved ejection fraction (HFpEF) ([facility]) One tablet one morning twice per week (Sunday and Sunday), 30 minutes prior to torsemide dose 30 Tablet 10/02/2023 Active Ammonium Lactate 12 % External Lotion (Lac-Hydrin) Apply to both feet once daily. 400 g 10/02/2023 Active Nystatin 415980 UNIT/GM External Powder (Nystop)Indications:C andidal intertrigo Apply [...] hemoglobin A1c goal of less than 7.0% ([facility]),Type 2 diabetes mellitus with diabetic mononeuropathy, with long-term current use of insulin ([facility]),Type 2 diabetes mellitus with both eyes affected by mild nonproliferative retinopathy and macular edema, with long-term current use of insulin ([facility]),Type 2 diabetes mellitus with stage 3a chronic kidney disease, with long-term current use of insulin ([facility]) Inject 2 mg under the skin once a week. 9 mL 3 10/01/2023 Active traZODone HCl 100 MG Oral Tablet (Desyrel) Take 1 Tablet by mouth at bedtime. 0 Active Dexcom G6 TransmitterIndication s:Type 2 diabetes mellitus with hemoglobin A1c goal of less than 7.0% ([facility]) Use as directed. Use 1 transmitter every 90 days E 11.9 1 Each 10/18/2023 Active Dexcom G6 SensorIndications:Typ e 2 diabetes mellitus with hemoglobin A1c goal of less than 7.0% ([facility]) Use as directed. Use 1 sensor every 10 days E 11.9 9 Each 3 10/18/2023 Active Gabapentin 100 MG Oral Capsule (Neurontin)Indication s:Polyneuropathy associated with underlying disease (HCC) TAKE 1 CAPSULE BY MOUTH EVERY DAY IN THE MORNING , AT NOON, AND BEFORE BEDTIME 90 Capsule 0 10/23/2023 Active documented as of this encounter (statuses as of 10/24/2023) Active Problems Problem Noted Date Diagnosed Date [...] eye 09/28/2020 Coronary artery disease invo lving tanana coronary artery of tanana heart without angina pectoris 12/16/2019 Last Assessment & Plan: No angina reported -continue atorvastatin 40 mg daily, plavix 75 mg daily, Toprol tartrate 100 mg QAM 50 mg QHS Medical marijuana use 12/09/2019 Schizoaffective disorder, bipolar type 05/02/201 9 Last Assessment & Plan: Stable -continue [...] blood sugars to review with endocrinology --has keisha--last hgba1c 04/14/22 8.2 --metformin 850mg BID --ozemipic 1mg weekly Dyslipidemia 11/14/2007 Overview: Per Lipid Taxonomy. documented as of this encounter (statuses as of 10/24/2023) Resolved Problems Problem Noted Date Diagnosed Date [...] 12/21/2016 Diabetes mellitus 01/05/2014 12/21/2016 LEYVA RESEARCH OTHER*[id number] 01/05/2014 12/21/2016 Axillary pain 11/03/2013 12/21/2016 Obesity, [...] cath 09/201008/26/2011 12/21/2016 FOLLOWING SURGERY, UNSPECIFI ED ([facility] 08/25/2011) 08/26/2011 12/21/2016 ADVANCE DIRECTIVE INFORMATION 04/17/2011 12/21/2016 Overview: Yes, Patient instructed to provide copy of advance directive for provider to review and to be scanned into Electronic Medical Record ADVANCE DIRECTIVE INFORMATION 03/01/2011 12/21/2016 Overview: Yes, Patient instructed to provide copy of advance directive for provider to review and to be scanned into Electronic Medical Record [facility] V710 Clinical Trial*[id number] 12/22/2010 04/14/2011 S/P aortic valve replacement 12/01/2010 08/26/2011 S/P AORTIC VALVE REPLACEMENT - #25 pericardial Mc valve 11/01/2010 06/28/2018 Overview: Aortic valve replacement with #25 pericardial Mc valve, model 2800TFX, serial number [id number] (Dr. Walker) [facility] V710 Clinical Trial*[id number] 10/18/2010 11/21/2010 Body mass index (BMI) of [...] as of this encounter (statuses as of 10/24/2023) Immunizations Name Administration Dates Next Due COVID-19 mRNA, LNP-s, No Pre serve, 2-Dose Series (Moderna) 10/25/2021,02/16/2021,01/18/2021 HEP A - Hepatitis A (Adult > 18 yrs) 06/07/2018, 12/05/2017 Hepatitis B, 20+ yrs 06/07/2018,01/08/20 18,12/05/2017,06/15,10/27/2013,09/12/2013 Pneumococcal Conjugate Vacci ne, 20-valent ([id number]) 06/22/2023 Pneumococcal Polysaccharide PPV23 (Pneumovax) 01/02/2008 Seasonal [...] encounter Miscellaneous Notes * Telephone Encounter - Mery Solis OSA - 10/24/2023 12:12 PM EST Pt doesn't use the keisha sensors. There is no need for the form. Please diregard them * Telephone Encounter - Neeraj Matthew RPh - 10/24/2023 11:50 AM EST Patient Phone Numbers Patient does NOT need Keisha sensors. She is using Omnipod 5 insulin pump with Dexcom G6 sensors. Disregard and do not send completed form back to [facility]. Neeraj So. Paris Romero, [facility] Clinical Pharmacist [facility] 10/24/2023, 11:51 AM * Telephone Encounter - Nataly Cobb CRNP - 10/24/2023 10:35 AM EST Fax received from [facility] for Keisha sensor kit. [facility] scheduling--please contact them at [phone] and request orders be sent to PCP. I have no scheduled appt with pt. PETTY Champion and MTM documented in this encounter Plan of Treatment Upcoming Encounters Date Type Department Care Team (Latest Contact Info) Description 10/29/2023 11:30 AM EST Pharmacy Pharmacy, [facility] [address] [facility] [place] [address] Pharmacist1, [facility] [address] [facility] [place] [address] 10/30/2023 9:30 AM EST Telemedicine [facility] [place] [address] [place] [address] Anjali Alanis, [facility] [address] [place] [address] 11/21/2023 9:20 AM EST Office Visit Family Practice [facility] [address] [place] [address] Gregory Rausch MD [address] [place] [address] 12/03/2023 12:30 PM EDT Home Visit [facility] [address] [place] [address] Jaycee Sorto RN [address] [place] [address] 12/05/2023 10:24 AM EDT Hospital Encounter [facility], Operating Room [facility] [address] [place] [phone] Ramsey Burnett, DO [address] [address] 12/05/2023 10:24 AM EDT - 12/05/2023 11:17 AM EDT Surgery [facility], Operating Room [facility] [address] [place] [phone] Ramsey Burnett, DO [address] [place] [address] LEFT EXTRACAPSULAR CATARACT REMOVAL COMPLEX WITH IOL 12/06/2023 8:45 AM EDT [facility], [facility] [address] [facility] [place] [address] Ramsey Burnett, DO [address] [place] [address] 12/14/2023 1:15 PM EDT Office Visit Ophthalmology, [place] [address] [place] [address] Ramsey Burnett, DO [address] [place] [address] 01/11/2024 1:15 PM EDT Office Visit [facility] [address] [place] [address] Ramsey Burnett, DO [address] [place] [address] 02/04/2024 10:20 AM EDT Office Visit Family Practice [facility] [address] [place] [address] Gregory Rausch MD [address] [facility] [place] [address] Scheduled Procedures Name Priority Associated Diagnoses Date/Ti [...] season) 2023 10/25/2021, 02/16/2021, 01/18/2021 Albumin/Creatinine Ratio 03/09/2024 023, 12/22/2022, 05/05/2021, Additional history exists HbA1c 03/19/2024 09/18/2023, 11/0 03/2023, 04/09/2023, Additional history exists GFR 04/14/2024 10/15/2023, 11/0 05/2023, 07/31/2023, Additional history exists CKD PHOS USE SMARTSET 18715 06/18/202405/26, 06/16/2023, 06/15/2023, Additional history exists Diabetic Eye Exam 09/13/2024 09/13/2023, , 09/13/2023, Additional history exists B-12 09/18/2024 09/18/2023, 08/24, 2020, Additional history exists CKD HGB USE SMARTSET 46224 10/15/202410/15, 07/31/2023, 07/31/2023, Additional history exists TSH 10/15/2024 10/15/2023, 05/25, 02/13/2023, Additional history exists COLONOSCOPY-EVERY 3 YRS AGES 18-100 09/13/2025 09/13/2022, 09/13/2022, 07/03/2018, Additional history exists DTaP,Tdap,and Td Vaccines (3 [...] this encounter Medical Devices Implanted Type Area Junior Qa Analyst Device Identifier Shelf Expiration Date Model / Serial / Lot Cath Roselia Single Lumen - [id number] Implanted:Qty : 1 on 03/12/2008 at OR [facility] Left: Chest [employer] *DO NOT USE* 07/25/2012 21-4053-24 / / [id number] Valve Tarsha Aortic [id number] - [id number] Implanted:Qty : 1 on 11/01/2010 at OR [facility] N/A: Heart [employer] 05/20/2012 [id number] / / [id number] Mesh Soft [id number] - [id number] Implanted:Qty : 1 on 10/10/2019 by Gigi Hendrickson MD at [place] [facility] N/A: Abdomen CR BARD : DAVOL [id number] 05/21/2024 [id number] / / [id number] Lens 22.5 Sn60wf - [id number] - [id number] Implanted:Qty : 1 on 09/15/2020 by Renaldo Cook, Cece Acosta MD at OR [facility] Right: Eye IVA : SURGICAL [id number] 05/13/2025 SN60 WF.225 / [id number] / [id number] documented as of this encounter Advance [...] the patient have Health Care Power of Manager Physical? No Full Code 10/10/2019 8:40 AM 10/10/2019 5:53 PM This order reflects the patients wishes and were consensually agreed upon. Full Code 11/06/2017 4:55 PM 11/07/2017 7:14 PM This order reflects the patients wishes and were consensually agreed upon. Healthcare Agents on File Name Relationship Healthcare Agent [facility] Communication Gigi Rose Adult Child Health Care Repr esentative (appointed verbally by patient or by statute hierarchy) Care Teams Sandblast Carver Relationship Specialty Start Date End Date Gregory Rausch MD [address] [place] [address] PCP - General Family Medicine 02/12/20 documented as of this encounter
--- OUTSIDE RECORDS SUMMARY | 2023-10-27 12:07 | External Medical Summary | Summary of Care ---
Author Name Unknown Organization [facility] Address [address] [place] [address] Phone [phone] Care Team Providers Care Pulp Press Tender Name Role Phone Gregory Rausch MD Primary Care Provider [phone] Reason for Visit * Reason Onset Date Comments Test Results 10/22/2023 Encounter Details Date Type Department Care Team (Late st Contact Info) Description 10/22/2023 Telephone Cardiology, [facility] [address] [place] [address] Feli Teague PA-C [address] [place] [address] Test Results Allergies Active Allergy Reactions Criticality Noted Date [...] Date Status aspirin enteric coated 81 MG TBECIndications:Aort ic valve disorder Take 1 Tab by mouth daily. 90 Tab 11 09/30/19 19 Active Multiple Vitamins-Minerals ([employer] SPECTRAVITE ADVANCED) TABS Take 1 Tab by mouth daily. 0 Active AZO Cranberry 250-30 MG Oral Tablet Take 2 Tablets by mouth in the morning and 2 Tablets at noon and 2 Tablets before bedtime. 0 Active BD Glucose 5 GM Oral Tablet Chewable (Glucose)Indications :DM type 2, not at goal (HCC) 3 every 15 minutes until glucose is > 100 mg/dL for hypoglycemia E11.9 100 Tab 3 07/06/20 21 Active OneTouch Verio w/Device Kit Use up to 4 times a day E11.9 1 Kit 0 02/11/20 22 Active OneTouch Delica Lancets 33G TEST 4 TIMES DAILY DIRECTED, E11.9 400 Each 3 02/11/20 22 Active Melatonin 10 MG Oral CapsuleIndications:s leep Take 1 Capsule by mouth at bedtime. 0 Active Magnesium Oxide 400 (240 Mg) MG Oral Tablet (Mag-Ox) One tablet by mouth daily in the morning 90 Tablet 3 12/24/19 23 Active Omnipod 5 G6 Pod (Gen 5) Use as directed. Use 1 pod every 3 days 30 Each 3 01/12/20 23 Active Omnipod 5 G6 Intro (Gen 5) Kit Use as directed. Use to delivery insulin via insulin pump 1 Kit 0 01/12/20 23 Active Fluticasone Propionate 50 MCG/ACT Nasal Suspension (Flonase)Indications :Dizziness Administer 2 Sprays into each nostril in the morning. 16 g 3 03/01/20 23 Active Clopidogrel Bisulfate 75 MG Oral Tablet (pLAVix) TAKE 1 TABLET (75 MG) BY MOUTH IN THE MORNING 90 Tablet 2 05/05/20 23 Active Levothyroxine Sodium 75 MCG Oral Tablet (Levoxyl)Indications :Hypothyroidism TAKE 1 TAB BY MOUTH DAILY FIRST THING IN AM, AT LEAST 30 MIN PRIOR TO BREAKFAST OR OTHER MEDICATIONS 90 Tablet 2 05/05/20 23 Active OneTouch Verio In Vitro Strip (Glucose Blood) Use up to 4 times a day E11.9 100 Strip 11 07/26/20 23 Active Potassium Chloride Shannon ER 10 MEQ Oral Tablet Extended ReleaseIndications:A cute on chronic heart failure with preserved ejection fraction (HFpEF) (HCC) Take 1 Tablet by mouth in the morning and 1 Tablet before bedtime. 180 Tablet 3 07/26/20 Active Venelex External Ointment Apply topically to affected area 2 times a day. 0 06/29/20 Active NovoLOG FlexPen 100 UNIT/ML Subcutaneous Solution Pen-injector (insulin aspart) Injected under the skin BEFORE MEALS, 3 times per day: 2 units per 50 when glucose is over 200 units. TDD: 50. ICD10: E11.9. 15 mL 2 07/31/20 Active Tresiba FlexTouch 200 UNIT/ML Subcutaneous Solution Pen-injector (Insulin Degludec)Indications :Type 2 diabetes mellitus with hemoglobin A1c goal of less than 7.0% ([facility]),Type 2 diabetes mellitus with stage 3a chronic kidney disease, with long-term current use of insulin ([facility]) Inject 30 Units under the skin at bedtime. 6 mL 2 07/31/20 Active BD Pen Needle Short U/F 31G X 8 MMIndications:Type 2 diabetes mellitus with hemoglobin A1c goal of less than 7.0% ([facility]),Type 2 diabetes mellitus with stage 3a chronic kidney disease, with long-term current use of insulin ([facility]) Use with insulin 4 times daily 400 Each 3 07/31/20 Active Gaviscon 80-14.2 MG Oral Tablet Chewable (Alum Hydroxide-Mag Trisilicate) Take by mouth as needed. 0 Active Atorvastatin Calcium 40 MG Oral Tablet (Lipitor)Indications :Heart failure, systolic, due to idiopathic cardiomyopathy ([facility]),S/P aortic valve replacement,HTN, goal below 140/80,Dyslipidemia, goal LDL below 70 TAKE 1 TABLET BY MOUTH DAILY. TO PREVENT HEART ATTACK/STROKE, PROTECT KIDNEY, AND CHOLESTEROL 90 Tablet 1 08/20/20 Active Meclizine HCl 25 MG Oral Tablet (Antivert)Indication s:Muscle tension headache TAKE 2 TABLETS BY MOUTH TWICE A DAY 360 Tablet 3 08/20/20 Active metFORMIN HCl 1000 MG Oral Tablet (Glucophage) Take 1 Tablet by mouth 2 times a day with morning and evening meals. 180 Tablet 3 08/31/20 23 Active Torsemide 10 MG Oral Tablet (Demadex) Take 1 Tablet by mouth in the morning. 0 Active Insulin Aspart 100 UNIT/ML Injection Solution (NovoLOG)Indications :Type 2 diabetes mellitus with hemoglobin A1c goal of less than 7.0% ([facility]) Use up to 50 units per day in Omnipod. 5 Each 3 09/11/20 23 Active BD Insulin Syringe 25G X 1" 1 ML (Insulin Syringe-Needle U-100) Use daily with omnipod as directed DX E11.9 100 Each 5 09/20/20 23 Active Curity Alcohol Swabs Pad Use as directed as needed 200 Each 5 09/20/20 23 Active Metoprolol Tartrate 25 MG Oral Tablet (Lopressor) Take 1 Tablet by mouth in the morning and 1 Tablet before bedtime. 60 Tablet 5 09/26/19 24 Active metOLazone 2.5 MG Oral Tablet (Zaroxolyn)Indicatio ns:Acute on chronic heart failure with preserved ejection fraction (HFpEF) ([facility]) One tablet one morning twice per week (Sunday and Sunday), 30 minutes prior to torsemide dose 30 Tablet 3 10/02/19 24 Active Ammonium Lactate 12 % External Lotion (Lac-Hydrin) Apply to both feet once daily. 400 g 3 10/02/19 24 Active Nystatin 187429 UNIT/GM External Powder (Nystop)Indications: Candidal intertrigo Apply topically to affected area 3 times a day. Apply to affected areas 60 g 1 10/02/19 24 Active Aquaphor External Ointment Apply topically to affected area as needed for Dry Skin. Apply to face 420 g 0 10/02/19 24 Active Ozempic (2 MG/DOSE) 8 MG/3ML Subcutaneous Solution Pen-injector (Semaglutide (2 MG/DOSE))Indications :Type 2 diabetes mellitus with hemoglobin A1c goal [...] skin once a week. 9 mL 3 10/01/19 24 Active traZODone HCl 100 MG Oral Tablet (Desyrel) Take 1 Tablet by mouth at bedtime. 0 Active Dexcom G6 TransmitterIndicatio ns:Type 2 diabetes mellitus with hemoglobin A1c goal of less than 7.0% ([facility]) Use as directed. Use 1 transmitter every 90 days E 11.9 1 Each 3 10/18/19 24 Active Dexcom G6 SensorIndications:Ty pe 2 diabetes mellitus with hemoglobin A1c goal of less than 7.0% ([facility]) Use as directed. Use 1 sensor every 10 days E 11.9 9 Each 3 10/18/19 24 Active Gabapentin 100 MG Oral Capsule (Neurontin)Indicatio ns:Polyneuropathy associated with underlying disease ([facility]) Take 1 Capsule by mouth in the morning and 1 Capsule at noon and 1 Capsule before bedtime. 90 Capsule 0 10/02/19 24 024 Discontinued documented as of this encounter (statuses as [...] eye 09/28/2020 Coronary artery disease invo lving [place] coronary artery of [place] heart without angina pectoris 12/16/2019 Last Assessment [...] 12/21/2016 Diabetes mellitus 01/05/2014 12/21/2016 LEYVA RESEARCH OTHER*[id number] 01/05/2014 12/21/2016 Axillary pain 11/03/2013 12/21/2016 Obesity, [...] cath 09/201008/26/2011 12/21/2016 FOLLOWING SURGERY, UNSPECIFI ED ([facility] BSO 08/25/2011) 08/26/2011 12/21/2016 ADVANCE DIRECTIVE INFORMATION 04/17/2011 12/21/2016 Overview: Yes, Patient instructed to provide copy of advance directive for provider to review and to be scanned into Electronic Medical Record ADVANCE DIRECTIVE INFORMATION 03/01/2011 12/21/2016 Overview: Yes, Patient instructed to provide copy of advance directive for provider to review and to be scanned into Electronic Medical Record [facility] V710 Clinical Trial*[id number] 12/22/2010 04/14/2011 S/P aortic valve replacement 12/01/2010 08/26/2011 S/P AORTIC VALVE REPLACEMENT - #25 pericardial Mc valve 11/01/2010 06/28/2018 Overview: Aortic valve replacement with #25 pericardial Mc valve, model 2800TFX, serial number [id number] (Dr. Walker) [facility] [employer]10 Clinical Trial*[id number] 10/18/2010 11/21/2010 Body mass index (BMI) of [...] 06/07/2018,01/08/20 18,12/05/2017,06/15,10/27/2013,09/12/2013 Pneumococcal Conjugate Vacci ne, 20-valent ([id number]) 06/22/2023 Pneumococcal Polysaccharide PPV23 (Pneumovax) 01/02/2008 Seasonal [...] encounter Miscellaneous Notes * Telephone Encounter - Sylvester Burger LPN - 10/24/2023 1:10 PM EST Called patient and informed of unread [employer] message. Patient verbalized understanding. * Telephone Encounter - Sylvester Burger LPN - 10/22/2023 3:56 PM EST Sent patient a [employer]Biod[employer]el[employer] message to make aware. Lab ordered. ----- Message from Feli Teague PA-C sent at 10/18/2023 11:44 AM EST ----- Mild worsening renal function and low sodium. Stop metolazone for now. Continue torsemide 10 mg daily and potassium 10 meq BID Monitor weight and fluid status closely. Call with worsening fluid retention - edema/SOB/weight gain TSH improved. Magnesium level normal Hbg improved and normalized. Repeat BMP in 1 week documented in this encounter Plan of Treatment Upcoming Encounters Date Type Department Care Team (Latest Contact Info) Description 10/29/2023 11:30 AM EST Pharmacy Pharmacy, [facility] [address] [place] [address] Pharmacist1, [facility] [address] [facility] [place] [address] 10/30/2023 9:30 AM EST Telemedicine Psychology, [facility] [address] [place] [address] Anjali Alanis, OUTSIDE INSTALLATION MACHINIST [address] [place] [facility] [place] [address] 11/21/2023 9:20 AM EST Office Visit Family Practice [facility] [address] [place] [address] Gregory Rausch MD [address] [place] [address] 12/03/2023 12:30 PM EDT Home Visit trey at [facility] [address] [place] [address] Jaycee Sorto RN [address] [place] [address] 12/05/2023 10:24 AM EDT Hospital Encounter [facility], Operating Room [facility] [address] [phone] Ramsey Burnett, DO [address] [address] 12/05/2023 10:24 AM EDT - 12/05/2023 11:17 AM EDT Surgery OR [facility], Operating Room [facility] [address] [phone] Ramsey Burnett, DO [address] [address] LEFT EXTRACAPSULAR CATARACT REMOVAL COMPLEX WITH IOL 12/06/2023 8:45 AM EDT Office Visit Ophthalmology, [facility] [address] [address] Ramsey Burnett, DO [address] [place] [address] 12/14/2023 1:15 PM EDT Office Visit Ophthalmology, [place] [address] [place] [address] Ramsey Burnett, DO [address] [place] [address] 01/11/2024 1:15 PM EDT Office Visit Ophthalmology, [place] [address] [place] [address] Ramsey Burnett, DO [address] [place] [address] 02/04/2024 10:20 AM EDT Office Visit Family [facility] [address] [place] [address] Gregory Rausch MD [address] [place] [address] Scheduled Orders Name Type Priority Associated Diagnoses Orde r Schedule BASIC METABOLIC PANEL Lab Routine 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) Hyponatremia Expected: 10/29/2023 (Approximate), Expires: 10/22/2024 Scheduled Procedures Name Priority Associated Diagnoses Date/Ti [...] Additional history exists CKD PHOS USE SMARTSET 20245 06/18/202405/26, 06/16/2023, 06/15/2023, Additional history exists Diabetic Eye Exam 09/13/2024 09/13/2023, , 09/13/2023, Additional history exists B-12 09/18/2024 09/18/2023, 08/24, 2020, Additional history exists CKD HGB USE SMARTSET 03622 10/15/202410/15, 07/31/2023, 07/31/2023, Additional history exists TSH [...] this encounter Medical Devices Implanted Type Area Fish Cutting Machine Operator Device Identifier Shelf Expiration Date Model / Serial / Lot Cath Roselia Single Lumen - [id number] Implanted:Qty : 1 on 03/12/2008 at OR [facility] Left: Chest [facility] *DO NOT USE* 07/25/2012 21-4053-24 / / [id number] Valve Tarsha Aortic [id number] - [id number] Implanted:Qty : 1 on 11/01/2010 at OR [facility] N/A: Heart MC LIFESCIVIPerks DANIEL 05/20/2012 2800TFX-25 / / [id number] Mesh Soft [id number] - [id number] Implanted:Qty : 1 on 10/10/2019 by Gigi Hendrickson MD at [place] [facility] [place] N/A: Abdomen CR BARD : DAVOL [id number] 05/21/2024 [id number] / / [id number] Lens 22.5 Sn60wf - [id number] - [id number] Implanted:Qty : 1 on 09/15/2020 by Cece Roland MD at [facility] Right: Eye IVA : SURGICAL [id number] 05/13/2025 SN60 WF.225 / [id number] / [id number] documented as of this encounter Visit Diagnoses Diagnosis 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)- Primary Hyponatremia Hyposmolality and/or hyponatremia Cataract Unspecified cataract documented in this encounter Advance Directives Latest Code Status [...] the patient have Health Care Power of Industrial Education Teacher? No Full Code 10/10/2019 8:40 AM 10/10/2019 5:53 PM This order reflects the patients wishes and were consensually agreed upon. Full Code 11/06/2017 4:55 PM 11/07/2017 7:14 PM This order reflects the patients wishes and were consensually agreed upon. Healthcare Agents on File Name Relationship Healthcare Agent Relationshi p Communication Gigi Rose Adult Child Health Care Repr esentative (appointed verbally by patient or by statute hierarchy) Care Teams Pulp Press Tender Relationship Specialty Start Date End Date Gregory Rausch MD [address] [place] [address] PCP - General Family Medicine 02/12/20 documented as of this encounter
--- OUTSIDE RECORDS SUMMARY | 2023-10-27 12:07 | External Medical Summary | Summary of Care ---
Author Name Unknown Organization [facility] Address [address] [place] [address] Phone [phone] Care Team Providers Care Alternative Medicine Practitioner Name Role Phone Gregory Rausch MD Primary Care Provider [phone] Encounter Details Date Type Department Care Team (Late st Contact Info) Description 10/24/2023 Orders Only PATIENT PORTAL DO NOT DELETE THIS DEPT US[facility] [address] Allergies Active Allergy Reactions Criticality Noted Date [...] ER 10 MEQ Oral Tablet Extended ReleaseIndications:Ac jules on chronic heart failure with preserved ejection [...] hemoglobin A1c goal of less than 7.0% ([facility]),Type 2 diabetes mellitus with stage 3a chronic kidney disease, with long-term current use of insulin ([facility]) Inject 30 Units under the skin at bedtime. 6 mL 2 07/31/2023 Active BD Pen Needle Short U/F 31G X 8 MMIndications:Type 2 diabetes mellitus with hemoglobin A1c goal of less than 7.0% ([facility]),Type 2 diabetes mellitus with stage 3a chronic kidney disease, with long-term current use of insulin ([facility]) Use with insulin 4 times daily 400 Each 3 07/31/2023 Active Gaviscon 80-14.2 MG Oral Tablet Chewable (Alum Hydroxide-Mag Trisilicate) Take by mouth as needed. 0 Active Atorvastatin Calcium 40 MG Oral Tablet (Lipitor)Indications: Heart failure, systolic, due to idiopathic cardiomyopathy ([facility]),S/P aortic valve replacement,HTN, goal below 140/80,Dyslipidemia, goal [...] hemoglobin A1c goal of less than 7.0% ([facility]) Use up to 50 units per day [...] heart failure with preserved ejection fraction (HFpEF) ([facility]) One tablet one morning twice per week (Sunday and Sunday), 30 minutes prior to torsemide dose 30 Tablet 10/02/2023 Active Ammonium Lactate 12 % External Lotion (Lac-Hydrin) Apply to both feet once daily. 400 g 10/02/2023 Active Nystatin 347813 UNIT/GM External Powder (Nystop)Indications:C andidal intertrigo Apply topically to affected area 3 times a day. Apply to affected areas 60 g 10/02/2023 Active Aquaphor External Ointment Apply topically to affected area as needed for Dry Skin. Apply to face 420 g 0 10/02/2023 Active Ozempic (2 MG/DOSE) 8 MG/3ML Subcutaneous Solution Pen-injector (Semaglutide (2 MG/DOSE))Indications: Type 2 diabetes mellitus with hemoglobin A1c goal of less than 7.0% ([facility]),Type 2 diabetes mellitus with diabetic mononeuropathy, with long-term current use of insulin ([facility]),Type 2 diabetes mellitus with both eyes affected by mild nonproliferative retinopathy and macular edema, with long-term current use of insulin ([facility]),Type 2 diabetes mellitus with stage 3a chronic kidney disease, with long-term current use of insulin ([facility]) Inject 2 mg under the skin once a week. 9 mL 10/01/2023 Active traZODone HCl 100 MG Oral Tablet (Desyrel) Take 1 Tablet by mouth at bedtime. 0 Active Dexcom G6 TransmitterIndication s:Type 2 diabetes mellitus with hemoglobin A1c goal of less than 7.0% ([facility]) Use as directed. Use 1 transmitter every 90 days E 11.9 1 Each 10/18/2023 Active Dexcom G6 SensorIndications:Typ e 2 diabetes mellitus with hemoglobin A1c goal of less than 7.0% ([facility]) Use as directed. Use 1 sensor every 10 days E 11.9 9 Each 10/18/2023 Active Gabapentin 100 MG Oral Capsule [...] eye 09/28/2020 Coronary artery disease invo lving [place] coronary artery of [place] heart without angina pectoris 12/16/2019 Last Assessment [...] 05/12/2019 07/04/2019 Controlled type 2 diabetes m ellitus with cataract 01/23/2019 12/09/2019 Body mass index [...] Muscle tension headache 02/01/201707/26 Depression with anxiety 12/21/2016 100 01/2018 Ventral hernia without obstr uction or gangrene [...] 12/21/2016 Diabetes mellitus 01/05/2014 12/21/2016 LEYVA RESEARCH OTHER*[id number] 01/05/2014 12/21/2016 Axillary pain 11/03/2013 12/21/2016 Obesity, [...] cath 09/201008/26/2011 12/21/2016 FOLLOWING SURGERY, UNSPECIFI ED ([facility] BSO 08/25/2011) 08/26/2011 12/21/2016 ADVANCE DIRECTIVE INFORMATION 04/17/2011 12/21/2016 Overview: Yes, Patient instructed to provide copy of advance directive for provider to review and to be scanned into Electronic Medical Record ADVANCE DIRECTIVE INFORMATION 03/01/2011 12/21/2016 Overview: Yes, Patient instructed to provide copy of advance directive for provider to review and to be scanned into Electronic Medical Record [facility] V710 Clinical Trial*[id number] 12/22/2010 04/14/2011 S/P aortic valve replacement 12/01/2010 08/26/2011 S/P AORTIC VALVE REPLACEMENT - #25 pericardial Mc valve 11/01/2010 06/28/2018 Overview: Aortic valve replacement with #25 pericardial Mc valve, model 2800TFX, serial number [id number] (Dr. Walker) [facility] V710 Clinical Trial*[id number] 10/18/2010 11/21/2010 Body mass index (BMI) of [...] 06/07/2018,01/08/20 18,12/05/2017,06/15,10/27/2013,09/12/2013 Pneumococcal Conjugate Vacci ne, 20-valent ([id number]) 06/22/2023 Pneumococcal Polysaccharide PPV23 (Pneumovax) 01/02/2008 Seasonal [...] No 11/06/2017 documented as of this encounter Plan of Treatment Upcoming Encounters Date Type Department Care Team (Latest Contact Info) Description 10/29/2023 11:30 AM EST Pharmacy Pharmacy, [facility] [address] [facility] [place] [address] Pharmacist1, [facility] [address] [facility] [place] [address] 10/30/2023 9:30 AM EST [facility] [address] [place] [address] [facility] [address] [place] [address] 11/21/2023 9:20 AM EST Office Visit Family Practice [facility] [address] [address] Gregory Rausch MD [address] [address] 12/03/2023 12:30 PM EDT Home Visit [facility] at [facility] [address] [address] Jaycee Sorto, RN [address] [address] 12/05/2023 10:24 AM EDT Hospital Encounter [facility], Operating Room [facility] [address] [phone] Ramsey Burnett, DO [address] [place] [address] 12/05/2023 10:24 AM EDT - 12/05/2023 11:17 AM EDT Surgery [facility], Operating Room [facility] [address] [place] [phone] Ramsey Burnett, DO [address] [place] [address] LEFT EXTRACAPSULAR CATARACT REMOVAL COMPLEX WITH IOL 12/06/2023 8:45 AM EDT Office Visit Ophthalmology, [facility] [address] [facility] [place] [address] Ramsey Burnett, DO [address] [address] 12/13/2023 2:15 PM EDT Office Visit Ophthalmology, [facility] [address] [place] [address] Ramsey Burnett, DO [address] [address] 01/10/2024 2:00 PM EDT Office Visit Ophthalmology, [facility] [address] [facility] [place] [address] Ramsey Burnett, DO [address] [address] 02/04/2024 10:20 AM EDT Office Visit Family Practice [facility] [address] [facility] [place] [address] Gregory Rausch MD [address] [facility] [place] [address] Scheduled Procedures Name Priority Associated Diagnoses Date/Ti [...] Additional history exists CKD PHOS USE SMARTSET 60712 06/18/2024 0901/2023, 06/16/2023, 06/15/2023, Additional history exists Diabetic Eye Exam 09/13/2024 09/13/2023, , 09/13/2023, Additional history exists B-12 09/18/2024 09/18/2023, 08/24, 2020, Additional history exists CKD HGB USE SMARTSET 68357 10/15/202410/15, 07/31/2023, 07/31/2023, Additional history exists TSH [...] this encounter Medical Devices Implanted Type Area Medical Pathology Teacher Device Identifier Shelf Expiration Date Model / Serial / Lot Cath Roselia Single Lumen - [id number] Implanted:Qty : 1 on 03/12/2008 at OR [facility] Left: Chest [facility] *DO NOT USE* 07/25/2012 21-4053-24 / / [id number] Valve Tarsha Aortic [id number] - [id number] Implanted:Qty : 1 on 11/01/2010 at OR [facility] N/A: Heart MC LIFESCISkyhood DANIEL 05/20/2012 2800TFX-25 / / [id number] Mesh Soft [id number] - [id number] Implanted:Qty : 1 on 10/10/2019 by Gigi Hendrickson MD at [place] [facility] [place] N/A: Abdomen CR BARD : DAVOL [id number] 05/21/2024 [id number] / / [id number] Lens 22.5 Sn60wf - [id number] - [id number] Implanted:Qty : 1 on 09/15/2020 by Renaldo Cook, Cece Acosta MD at [facility] Right: Eye IVA : SURGICAL [id number] 05/13/2025 SN60 WF.225 / [id number] / [id number] documented as of this encounter Advance [...] the patient have Health Care Power of Alarm Adjuster? No Full Code 10/10/2019 8:40 AM 10/10/2019 [...] patient or by statute hierarchy) Care Teams Alternative Medicine Practitioner Relationship Specialty Start Date End Date Gregory Rausch MD [address] [address] PCP - General Family Medicine 02/12/20 documented as of this encounter
--- OUTSIDE RECORDS SUMMARY | 2023-10-27 12:07 | External Medical Summary | Summary of Care ---
Author Name Unknown Organization [facility] Address [address] [place] [address] Phone [phone] Care Team Providers Care Rack Room Worker Name Role Phone Gregory Rausch MD Primary Care Provider [phone] Encounter Details Date Type Department Care Team (Late st Contact Info) Description 10/24/2023 Telephone [facility] [place] [address] [place] [address] Nataly Cobb CRNP [address] [place] [facility] [place] [address] Allergies Active Allergy Reactions Criticality Noted Date [...] ER 10 MEQ Oral Tablet Extended ReleaseIndications:Ac nez perce on chronic heart failure with preserved ejection [...] A1c goal of less than 7.0% ([facility]),Type 2 diabetes mellitus with stage 3a chronic kidney disease, with long-term current use of insulin ([facility]) Inject 30 Units under the skin at bedtime. 6 mL 2 07/31/2023 Active BD Pen Needle Short U/F 31G X 8 MMIndications:Type 2 diabetes mellitus with hemoglobin A1c goal of less than 7.0% ([facility]),Type 2 diabetes mellitus with stage 3a chronic kidney disease, with long-term current use of insulin ([facility]) Use with insulin 4 times daily 400 Each 3 07/31/2023 Active Gaviscon 80-14.2 MG Oral Tablet Chewable (Alum Hydroxide-Mag Trisilicate) Take by mouth as needed. 0 Active Atorvastatin Calcium 40 MG Oral Tablet (Lipitor)Indications: Heart failure, systolic, due to idiopathic cardiomyopathy ([facility]),S/P aortic valve replacement,HTN, goal below 140/80,Dyslipidemia, goal [...] A1c goal of less than 7.0% ([facility]) Use up to 50 units per day [...] failure with preserved ejection fraction (HFpEF) ([facility]) One tablet one morning twice per week (Sunday and Sunday), 30 minutes prior to torsemide dose 30 Tablet 10/02/2023 Active Ammonium Lactate 12 % External Lotion (Lac-Hydrin) Apply to both feet once daily. 400 g 10/02/2023 Active Nystatin 980309 UNIT/GM External Powder (Nystop)Indications:C andidal intertrigo Apply [...] A1c goal of less than 7.0% ([facility]),Type 2 diabetes mellitus with diabetic mononeuropathy, with long-term current use of insulin ([facility]),Type 2 diabetes mellitus with both eyes affected by mild nonproliferative retinopathy and macular edema, with long-term current use of insulin ([facility]),Type 2 diabetes mellitus with stage 3a chronic kidney disease, with long-term current use of insulin ([facility]) Inject 2 mg under the skin once a week. 9 mL 3 10/01/2023 Active traZODone HCl 100 MG Oral Tablet (Desyrel) Take 1 Tablet by mouth at bedtime. 0 Active Dexcom G6 TransmitterIndication s:Type 2 diabetes mellitus with hemoglobin A1c goal of less than 7.0% ([facility]) Use as directed. Use 1 transmitter every 90 days E 11.9 1 Each 10/18/2023 Active Dexcom G6 SensorIndications:Typ e 2 diabetes mellitus with hemoglobin A1c goal of less than 7.0% ([facility]) Use as directed. Use 1 sensor every [...] eye 09/28/2020 Coronary artery disease invo lving [place] coronary artery of [place] heart without angina pectoris 12/16/2019 Last Assessment [...] 12/21/2016 Diabetes mellitus 01/05/2014 12/21/2016 LEYVA RESEARCH OTHER*[id number] 01/05/2014 12/21/2016 Axillary pain 11/03/2013 12/21/2016 Obesity, [...] cath 09/201008/26/2011 12/21/2016 FOLLOWING SURGERY, UNSPECIFI ED ([facility] BSO 08/25/2011) 08/26/2011 12/21/2016 ADVANCE DIRECTIVE INFORMATION 04/17/2011 12/21/2016 Overview: Yes, Patient instructed to provide copy of advance directive for provider to review and to be scanned into Electronic Medical Record ADVANCE DIRECTIVE INFORMATION 03/01/2011 12/21/2016 Overview: Yes, Patient instructed to provide copy of advance directive for provider to review and to be scanned into Electronic Medical Record [facility] V710 Clinical Trial*[id number] 12/22/2010 04/14/2011 S/P aortic valve replacement 12/01/2010 08/26/2011 S/P AORTIC VALVE REPLACEMENT - #25 pericardial Mc valve 11/01/2010 06/28/2018 Overview: Aortic valve replacement with #25 pericardial Mc valve, model 2800TFX, serial number [id number] (Dr. Walker) [facility] V710 Clinical Trial*[id number] 10/18/2010 11/21/2010 Body mass index (BMI) of [...] 06/07/2018,01/08/20 18,12/05/2017,06/15,10/27/2013,09/12/2013 Pneumococcal Conjugate Vacci ne, 20-valent ([id number]) 06/22/2023 Pneumococcal Polysaccharide PPV23 (Pneumovax) 01/02/2008 Seasonal [...] encounter Miscellaneous Notes * Telephone Encounter - Neeraj Matthew RPh - 10/24/2023 11:50 AM EST Patient Phone Numbers Patient does NOT need Keisha sensors. She is using Omnipod 5 insulin pump with Dexcom G6 sensors. Disregard and do not send completed form back to [facility] [place]. Neeraj So. Paris Romero, [facility] Clinical Pharmacist Medication [facility] 10/24/2023, 11:51 AM * Telephone Encounter - Nataly Cobb CRNP - 10/24/2023 10:35 AM EST Fax received from [facility] for Keisha sensor kit. [facility] scheduling--please contact them at [phone] and request orders be sent to PCP. I have no scheduled appt with ptKayla Champion and GARY documented in this encounter Plan of Treatment Upcoming Encounters Date Type Department Care Team (Latest Contact Info) Description 10/29/2023 11:30 AM EST Pharmacy Pharmacy, [facility] [place] [address] [place] [address] Pharmacist1, [facility] [address] [place] [address] 10/30/2023 9:30 AM EST Telemedicine Psychology, [place] [address] [place] [address] Anjali Alanis, [facility] [address] [place] [facility] [place] [address] 11/21/2023 9:20 AM EST Office Visit Family Practice [facility] [address] [facility] [place] [address] Gregory Rausch MD [address] [place] [address] 12/03/2023 12:30 PM EDT Home Visit [facility] [address] [place] [address] Jaycee Sorto RN [address] [place] [address] 12/05/2023 10:24 AM EDT Hospital Encounter [facility], Operating Room [facility] [address] [place] [address] Ramsey Burnett, DO [address] [address] 12/05/2023 10:24 AM EDT - 12/05/2023 11:17 AM EDT Surgery OR [facility], Operating Room [facility] [address] [place] [id number] Ramsey Burnett, DO [address] [address] LEFT EXTRACAPSULAR CATARACT REMOVAL COMPLEX WITH IOL 12/06/2023 8:45 AM EDT Office Visit Ophthalmology, [facility] [address] [place] [address] Ramsey Burnett, DO [address] [address] 12/13/2023 2:15 PM EDT Office Visit Ophthalmology, [facility] [address] [facility] [place] [address] Ramsey Burnett, DO [address] [address] 01/10/2024 2:00 PM EDT Office Visit Ophthalmology, [facility] [address] [facility] [place] [address] Ramsey Burnett, DO [address] [address] 02/04/2024 10:20 AM EDT Office Visit Family Practice [facility] [address] [facility] [place] [address] Gregory Rausch MD [address] [facility] [place] [address] Scheduled Procedures Name Priority Associated Diagnoses Date/Ti [...] Additional history exists CKD PHOS USE SMARTSET 46256 06/18/2024 09/2 01/2023, 06/16/2023, 06/15/2023, Additional history exists Diabetic Eye Exam 09/13/2024 09/13/2023, , 09/13/2023, Additional history exists B-12 09/18/2024 09/18/2023, 08/24, 2020, Additional history exists CKD HGB USE SMARTSET 78067 10/15/202410/15, 07/31/2023, 07/31/2023, Additional history exists TSH [...] this encounter Medical Devices Implanted Type Area Sheet Heater Device Identifier Shelf Expiration Date Model / Serial / Lot Cath Roselia Single Lumen - [id number] Implanted:Qty : 1 on 03/12/2008 at OR [facility] Left: Chest [employer] *DO NOT USE* 07/25/2012 21-4053-24 / / [id number] Valve Tarsha Aortic [id number] - [id number] Implanted:Qty : 1 on 11/01/2010 at OR [facility] N/A: Heart [employer] DAINEL 05/20/2012 2800TFX-25 / / [id number] Mesh Soft [id number] - [id number] Implanted:Qty : 1 on 10/10/2019 by Gigi Hendrickson MD at OR [facility] N/A: Abdomen CR BARD : DAVOL [id number] 05/21/2024 [id number] / / [id number] Lens 22.5 Sn60wf - [id number] - [id number] Implanted:Qty : 1 on 09/15/2020 by Renaldo Cook, Cece Acosta MD at OR [facility] Right: Eye IVA : SURGICAL [id number] 05/13/2025 SN60 WF.225 / [id number] / [id number] documented as of this encounter Advance [...] the patient have Health Care Power of Pipefitter Welder? No Full Code 10/10/2019 8:40 AM 10/10/2019 [...] patient or by statute hierarchy) Care Teams Rack Room Worker Relationship Specialty Start Date End Date Gregory Rausch MD [address] [place] [address] PCP - General Family Medicine 02/12/20 documented as of this encounter
--- OUTSIDE RECORDS SUMMARY | 2023-10-27 12:07 | External Medical Summary | Summary of Care ---
Author Name Unknown Organization [facility] Address [address] [place] [address] Phone [phone] Care Team Providers Care Optics Engineer Name Role Phone Gregory Rausch MD Primary Care Provider [phone] Reason for Visit * Reason Onset Date Comments Home Health 07/25/2023 Encounter Details Date Type Department Care Team (Late st Contact Info) Description 07/25/2023 Telephone Family Practice [facility] [address] [facility] [place] [address] [facility] MD [address] [facility] [address] [facility] Allergies Active Allergy Reactions Criticality Noted Date [...] Date Status aspirin enteric coated 81 MG TBECIndications:Aor tic valve disorder Take 1 Tab by mouth daily. 90 Tab 11 09/30/2018 Active Multiple Vitamins-Minerals ([facility] SPECTRAVITE ADVANCED) TABS Take 1 Tab by mouth daily. 0 Active AZO Cranberry 250-30 MG Oral Tablet Take 2 Tablets by mouth in the morning and 2 Tablets at noon and 2 Tablets before bedtime. 0 Active BD Glucose 5 GM Oral Tablet Chewable (Glucose)Indication s:DM type 2, not at goal (HCC) 3 every 15 minutes until glucose is > 100 mg/dL for hypoglycemia E11.9 100 Tab 3 07/06/2021 Active CondoGalaTouch Verio w/Device Kit Use up to 4 times a day E11.9 1 Kit 0 02/10/2022 Active CondoGalaTouch Delica Lancets 33G TEST 4 TIMES DAILY DIRECTED, E11.9 400 Each 3 02/10/2022 Active Melatonin 10 MG Oral CapsuleIndications: sleep Take 1 Capsule by mouth at bedtime. [...] Active Fluticasone Propionate 50 MCG/ACT Nasal Suspension (Flonase)Indication s:Dizziness Administer 2 Sprays into each nostril in the morning. 16 g 3 03/01/2023 Active Clopidogrel Bisulfate 75 MG Oral Tablet (pLAVix) TAKE 1 TABLET (75 MG) BY MOUTH IN THE MORNING 90 Tablet 2 05/05/2023 Active Levothyroxine Sodium 75 MCG Oral Tablet (Levoxyl)Indication s:Hypothyroidism TAKE 1 TAB BY MOUTH DAILY FIRST THING IN AM, AT LEAST 30 MIN PRIOR TO BREAKFAST OR OTHER MEDICATIONS 90 Tablet 2 05/05/2023 Active documented as of this encounter (statuses [...] eye 09/28/2020 Coronary artery disease invo lving [place] coronary artery of [place] heart without angina pectoris 12/16/2019 Last Assessment [...] 12/21/2016 Diabetes mellitus 01/05/2014 12/21/2016 LEYVA RESEARCH OTHER*[id number] 01/05/2014 12/21/2016 Axillary pain 11/03/2013 12/21/2016 Obesity, [...] cath 09/201008/26/2011 12/21/2016 FOLLOWING SURGERY, UNSPECIFI ED ([facility] BSO 08/25/2011) 08/26/2011 12/21/2016 ADVANCE DIRECTIVE INFORMATION 04/17/2011 12/21/2016 Overview: Yes, Patient instructed to provide copy of advance directive for provider to review and to be scanned into Electronic Medical Record ADVANCE DIRECTIVE INFORMATION 03/01/2011 12/21/2016 Overview: Yes, Patient instructed to provide copy of advance directive for provider to review and to be scanned into Electronic Medical Record [facility] V710 Clinical Trial*[id number] 12/22/2010 04/14/2011 S/P aortic valve replacement 12/01/2010 08/26/2011 S/P AORTIC VALVE REPLACEMENT - #25 pericardial Mc valve 11/01/2010 06/28/2018 Overview: Aortic valve replacement with #25 pericardial Mc valve, model 2800TFX, serial number [id number] (Dr. Walker) [facility] V710 Clinical Trial*[id number] 10/18/2010 11/21/2010 Body mass index (BMI) of [...] 06/07/2018,01/08/20 18,12/05/2017,06/15,10/27/2013,09/12/2013 Pneumococcal Conjugate Vacci ne, 20-valent ([id number]) 06/22/2023 Pneumococcal Polysaccharide PPV23 (Pneumovax) 01/02/2008 Seasonal [...] Miscellaneous Notes * Telephone Encounter - Arina Daniels LPN - 07/25/2023 2:28 PM EDT HH Admission/Start of Care Admission/Start of Care: Sarah ARMANDO, Calling from: [facility] Referral ordered by: [facility] D/D 07/24/2023 Referral received for: [facility], PT, and OT Planned start of care date:Yes, Date 07/25/2023 Start of care completed on: 07/25/2023 Report/Concerns of:None Symptoms: NA Vitals: T 97.8 P 73 BP 108/70 SP O297% Room Air Narrative: Medication interactions: Meclizine and Potassium They will call with any updates or additional concerns from the upcoming HH visit. Last Office Visit: 04/18/2023 Has patient been scheduled or seen in the office for a follow up visit: Yes- on 07/31/2023 Advised that orders will be signed by Gregory Rausch MD and to fax to the office for signature. Call back Sarah with advice or orders at [phone] documented in this encounter Plan of Treatment Upcoming Encounters Date Type Department Care Team (Latest Contact Info) Description 10/29/2023 11:30 AM [facility] Pharmacy Pharmacy, [facility] [address] [facility] [place] [address] Pharmacist1, [facility] [address] [place] [address] 10/30/2023 9:30 AM EST Telemedicine [facility] [place] [address] [place] [address] Anjali Alanis LCSW [address] [place] [address] 11/21/2023 9:20 AM EST Office Visit Family [facility] [address] [facility] [place] [address] Gregory Rausch MD [address] [facility] [place] [address] 12/03/2023 12:30 PM EDT Home Visit [place] [facility] [address] [place] [address] Jaycee Sorto, RN [address] [place] [place] [address] 12/05/2023 10:24 AM EDT Hospital Encounter [facility], Operating Room [facility] [address] [place] [address] Ramsey Burnett, [address] [place] [address] 12/05/2023 10:24 AM EDT - 12/05/2023 11:17 AM EDT Surgery OR [facility], Operating Room [facility] [address] [place] [address] Ramsey Burnett, [address] [place] [address] LEFT EXTRACAPSULAR CATARACT REMOVAL COMPLEX WITH IOL 12/06/2023 8:45 AM EDT Office Visit Ophthalmology, [facility] [address] [place] [address] Ramsey Burnett DO [address] [place] [address] 12/14/2023 1:15 PM EDT [facility] Visit [facility] [address] [facility] [place] [address] Ramsey Burnett DO [address] [place] [address] 01/11/2024 1:15 PM EDT Office Visit Ophthalmology, [facility] [address] [place] [address] Ramsey Burnett DO [address] [facility] [place] [address] 02/04/2024 10:20 AM EDT Office Visit Family [facility] [address] [place] [address] Gregory Rausch MD [address] [place] [address] Scheduled Procedures Name Priority Associated Diagnoses Date/Ti [...] Additional history exists CKD PHOS USE SMARTSET 40290 06/18/2024 0901/2023, 06/16/2023, 06/15/2023, Additional history exists Diabetic Eye Exam 09/13/2024 09/13/2023, , 09/13/2023, Additional history exists B-12 09/18/2024 09/18/2023, 08/24, 2020, Additional history exists CKD HGB USE SMARTSET 48155 10/15/202410/15, 07/31/2023, 07/31/2023, Additional history exists TSH 10/15/2024 10/15/2023, 05/25, 02/13/2023, Additional history exists COLONOSCOPY-EVERY 3 YRS AGES 18-100 09/13/2025 06/27/2023, 09/13/2022, 09/13/2022, Additional history exists DTaP,Tdap,and [...] this encounter Medical Devices Implanted Type Area Food Safety Director Device Identifier Shelf Expiration Date Model / Serial / Lot Cath Roselia Single Lumen - [id number] Implanted:Qty : 1 on 03/12/2008 at OR [facility] Left: Chest [facility] *DO NOT USE* 07/25/2012 21-4053-24 / / [id number] Valve Tarsha Aortic [id number] - [id number] Implanted:Qty : 1 on 11/01/2010 at OR [facility] N/A: Heart [employer] DANIEL 05/20/2012 2800TFX-25 / / [id number] Mesh Soft [id number] - [id number] Implanted:Qty : 1 on 10/10/2019 by Gigi Hendrickson MD at [place] [facility] N/A: Abdomen CR BARD : DAVOL [id number] 05/21/2024 [id number] / / [id number] Lens 22.5 Sn60wf - [id number] - [id number] Implanted:Qty : 1 on 09/15/2020 by Cece Roland MD at OR [facility] Right: Eye IVA : SURGICAL [id number] 05/13/2025 SN60 WF.225 / [id number] / [id number] documented as of this encounter Advance [...] the patient have Health Care Power of Full Decator Operator? No Full Code 10/10/2019 8:40 AM [...] patient or by statute hierarchy) Care Teams Optics Engineer Relationship Specialty Start Date End Date Gregory Rausch MD [address] [place] [address] PCP - General Family Medicine 02/12/20 documented as of this encounter
--- OUTSIDE RECORDS SUMMARY | 2023-10-27 12:07 | External Medical Summary | Summary of Care ---
Author Name Unknown Organization [facility] Address [address] [place] [address] Phone [phone] Care Team Providers Care Mule Packer Name Role Phone Gregory Rausch MD Primary Care Provider [phone] Reason for Visit * Reason Comments Diabetes Follow-Up Dosage Adjustment Via Phone (anticoag Cl in[facility]) Encounter Details Date Type Department Care Team (Late st Contact Info) Description 10/08/2023 2:00 PM [facility] Telemedicine Pharmacy, [facility] [address] [facility] [place] [address] Pharmacist1, [facility] [address] [place] [address] Type 2 diabetes mellitus with hemoglobin A1c goal of less than 7.0% ([facility])*; Type 2 diabetes mellitus with stage 3a chronic kidney disease, with long-term current use of insulin ([facility]) Allergies Active Allergy Reactions Criticality Noted Date Comments Adhesive Tape 07/02/2017 Can tolerate band-aids Glycerin Other (Please comment) 03/12/2008 Topical agents with glycein-burning & itching Lactose 12/09/2014 Dairy - gas Lisinopril Cough 01/21/2010 Monosodium Glutamate Edema Other 03/12/2008 Hands and feet Penicillins Rash 11/14/2007 documented as of this encounter (statuses as of 10/26/2023) Medications Medication Sig Dispensed Refills Start Date [...] heart failure with preserved ejection fraction (HFpEF) ([facility]) Take 1 Tablet by mouth in the morning and 1 Tablet before bedtime. 180 Tablet 3 07/26/20 23 Active Venelex External Ointment Apply topically to [...] hemoglobin A1c goal of less than 7.0% ([facility]),Type 2 diabetes mellitus with stage 3a chronic kidney disease, with long-term current use of insulin ([facility]) Inject 30 Units under the skin at bedtime. 6 mL 2 07/31/20 Active BD Pen Needle Short U/F 31G X 8 MMIndications:Type 2 diabetes mellitus with hemoglobin A1c goal of less than 7.0% ([facility]),Type 2 diabetes mellitus with stage 3a chronic kidney disease, with long-term current use of insulin ([facility]) Use with insulin 4 times daily 400 Each 3 07/31/20 Active Gaviscon 80-14.2 MG Oral Tablet Chewable (Alum Hydroxide-Mag Trisilicate) Take by mouth as needed. 0 Active Atorvastatin Calcium 40 MG Oral Tablet (Lipitor)Indications :Heart failure, systolic, due to idiopathic cardiomyopathy ([facility]),S/P aortic valve replacement,HTN, goal below 140/80,Dyslipidemia, goal LDL below 70 TAKE 1 TABLET BY MOUTH DAILY. TO PREVENT HEART ATTACK/STROKE, PROTECT KIDNEY, AND CHOLESTEROL 90 Tablet 1 08/20/20 Active Meclizine HCl 25 MG Oral Tablet (Antivert)Indication s:Muscle tension headache TAKE 2 TABLETS BY MOUTH TWICE A DAY 360 Tablet 3 08/20/20 23 Active metFORMIN HCl 1000 MG Oral Tablet (Glucophage) Take 1 Tablet by mouth 2 times a day with morning and evening meals. 180 Tablet 3 08/31/20 23 Active Torsemide 10 MG Oral Tablet (Demadex) Take 1 Tablet by mouth in the morning. 0 Active Insulin Aspart 100 UNIT/ML Injection Solution (NovoLOG)Indications :Type 2 diabetes mellitus with hemoglobin A1c goal of less than 7.0% ([facility]) Use up to 50 units per day in Omnipod. 5 Each 09/11/20 23 Active BD Insulin Syringe 25G X 1" 1 ML (Insulin Syringe-Needle U-100) Use daily with omnipod as directed DX E11.9 100 Each 09/20/20 23 Active Curity Alcohol Swabs Pad Use as directed as needed 200 Each 09/20/20 23 Active Metoprolol Tartrate 25 MG Oral Tablet (Lopressor) Take 1 Tablet by mouth in the morning and 1 Tablet before bedtime. 60 Tablet 09/26/19 24 Active metOLazone 2.5 MG Oral Tablet (Zaroxolyn)Indicatio ns:Acute on chronic heart failure with preserved ejection fraction (HFpEF) ([facility]) One tablet one morning twice per week (Sunday and Sunday), 30 minutes prior to torsemide dose 30 Tablet 10/02/19 24 Active Ammonium Lactate 12 % External Lotion (Lac-Hydrin) Apply to both feet once daily. 400 g 10/02/19 24 Active Nystatin 921737 UNIT/GM External Powder (Nystop)Indications: Candidal intertrigo Apply [...] hemoglobin A1c goal of less than 7.0% ([facility]),Type 2 diabetes mellitus with diabetic mononeuropathy, with long-term current use of insulin ([facility]),Type 2 diabetes mellitus with both eyes affected by mild nonproliferative retinopathy and macular edema, with long-term current use of insulin ([facility]),Type 2 diabetes mellitus with stage 3a chronic kidney disease, with long-term current use of insulin ([facility]) Inject 2 mg under the skin once a week. 9 mL 3 10/01/19 24 Active Dexcom G6 SensorIndications:Ty pe 2 diabetes mellitus with hemoglobin A1c goal of less than 7.0% ([facility]) Use as directed. Use 1 sensor every 10 days E 11.9 9 Each 3 01/17/20 23 024 Discontinued(Re fill) Dexcom G6 TransmitterIndicatio ns:Type 2 diabetes mellitus with hemoglobin A1c goal of less than 7.0% ([facility]) Use as directed. Use 1 transmitter every 90 days E 11.9 1 Each 3 01/17/20 23 024 Discontinued(Re fill) Gabapentin 100 MG Oral Capsule (Neurontin)Indicatio ns:Polyneuropathy associated with underlying disease ([facility]) Take 1 Capsule by mouth in the morning and 1 Capsule at noon and 1 Capsule before bedtime. 90 Capsule 0 10/02/19 24 024 Discontinued documented as of this encounter (statuses as of 10/26/2023) Active Problems Problem Noted Date Diagnosed Date [...] eye 09/28/2020 Coronary artery disease invo lving benton coronary artery of benton heart without angina pectoris 12/16/2019 Last Assessment [...] as of this encounter (statuses as of 10/26/2023) Resolved Problems Problem Noted Date Diagnosed Date [...] 12/21/2016 Diabetes mellitus 01/05/2014 12/21/2016 LEYVA RESEARCH OTHER*[id number] 01/05/2014 12/21/2016 Axillary pain 11/03/2013 12/21/2016 Obesity, [...] cath 09/201008/26/2011 12/21/2016 FOLLOWING SURGERY, UNSPECIFI ED ([facility] 08/25/2011) 08/26/2011 12/21/2016 ADVANCE DIRECTIVE INFORMATION 04/17/2011 12/21/2016 Overview: Yes, Patient instructed to provide copy of advance directive for provider to review and to be scanned into Electronic Medical Record ADVANCE DIRECTIVE INFORMATION 03/01/2011 12/21/2016 Overview: Yes, Patient instructed to provide copy of advance directive for provider to review and to be scanned into Electronic Medical Record [facility] V710 Clinical Trial*[id number] 12/22/2010 04/14/2011 S/P aortic valve replacement 12/01/2010 08/26/2011 S/P AORTIC VALVE REPLACEMENT - #25 pericardial Hernandez valve 11/01/2010 06/28/2018 Overview: Aortic valve replacement with #25 pericardial Hernandez valve, model 2800TFX, serial number [id number] (Dr. Walker) [facility] V710 Clinical Trial*[id number] 10/18/2010 11/21/2010 Body mass index (BMI) of [...] as of this encounter (statuses as of 10/26/2023) Immunizations Name Administration Dates Next Due COVID-19 mRNA, LNP-s, No Pre serve, 2-Dose Series (Moderna) 10/25/2021,02/16/2021,01/18/2021 HEP A - Hepatitis A (Adult > 18 yrs) 06/07/2018, 12/05/2017 Hepatitis B, 20+ yrs 06/07/2018,01/08/20 18,12/05/2017,06/15,10/27/2013,09/12/2013 Pneumococcal Conjugate Vacci ne, 20-valent (Llezrck12) 06/22/2023 Pneumococcal Polysaccharide PPV23 (Pneumovax) 01/02/2008 Seasonal [...] No 11/06/2017 documented as of this encounter Progress Notes * Neeraj Matthew, [facility] - 10/08/2023 1:58 PM EST Medication Therapy Disease Management Clinic - Diabetes Management Progress Note Patient Phone Numbers Jovita Rose, identified by name and date of , is a 62 year old female being seen for diabetes management/education. Patient for telephonic return diabetic visit. After connecting to the patient via telephone, the patient was identified by name and date of . Patient was then informed that this was a telephone call only visit. The patient agreed to participate. Visit Disposition: Routine follow-up Total call duration was 15 minutes. DIABETES: Current diabetic medications: Ozempic 1mg every Sunday (1mg = 36 clicks) Metformin 1000mg twice daily Novolog CF 2 over 200 Omnipod Insulin Pump (Serial Number: need to get after starting) Insulin: Novolog Basal Rate: 0.55 units/hour START: Bolus: 0 units with breakfast, 0 units with lunch and 0 units with supper Bolus Calculator: on and using ICR: 18 ISF: 50 Blood Glucose Goal Limits: 70-180 Bolus Calculator: Target B Correct above: 180 Minimum B Active Insulin Time: 2 Medication Injection Site: Arm and Abdomen Lifestyle: Diet: unchanged Omnipod rep was to meet with patient and family but had to cancel due to the weather. Rep is meeting with them 10/17 at 2PM at [facility]. History of Treatment Barriers: Lifestyle: None Therapy considerations: Cost Medication: None Glucose Review/SMBG: No downloads for either Omnipod or Dexcom. BG >200 and sometimes >400 Hypoglycemia: Does your blood sugar go below 70 mg/dL? No Hyperglycemia symptoms present: none Recent Labs Units 09/18/23 0932 07/31/23 1134 04/09/23 1344 HEMOGLOBIN A1C - [facility] % 7.5* 6.3* 7.9* Recent Labs Units 08/02/23 0000 07/31/23 1134 06/20/23 0421 ESTIMATED GLOMERULAR FILTRATION RATE - [facility] mL/min -- 86 >90 EGFR-OUTSIDE LAB ML/MIN 77.9 -- -- CREATININE - [facility] mg/dL -- 0.8 0.6 CREATININE-OUTSIDE LAB MG/DL 0.80 -- -- Lab Results Component Value Date/Time CREATININE - [facility] 0.8 07/31/2023 11:34 AM CREATININE - [facility] 0.6 06/20/2023 04:21 AM CREATININE - [facility] 0.7 06/19/2023 08:46 AM CREATININE - [facility] 1.2 (H) 09/07/2020 10:58 AM CREATININE - [facility] 1.1 (H) 05/21/2020 02:32 PM CREATININE - [facility] 1.1 (H) 05/19/2020 02:01 PM CREATININE ISTAT 0.9 10/15/2017 12:22 PM CREATININE, BLD (G-CMC) 0.69 11/03/2013 06:40 PM CREATININE, RANDOM URINE - [facility] 21 03/09/2023 12:44 PM CREATININE, RANDOM URINE - [facility] 21 12/22/2022 12:28 PM CREATININE, RANDOM URINE - [facility] 40 05/05/2021 01:02 PM CREATININE, RANDOM URINE - [facility] 140 03/21/2017 10:41 AM CREATININE, RANDOM URINE - [facility] 23 10/13/2014 03:02 PM CREATININE, RANDOM URINE - [facility] 33 02/03/2014 05:34 PM CREATININE-OUTSIDE LAB 0.80 08/02/2023 12:00 AM CREATININE-OUTSIDE LAB 0.99 03/05/2022 12:00 AM CREATININE-OUTSIDE LAB 1.10 07/17/2017 12:00 AM HYPERTENSION: Patient on ACEi/ARB: no, CORINA induced cough BP Readings from Last 3 Encounters: 09/06/23 120/64 07/31/23 130/62 07/28/23 140/72 Blood pressure at goal: yes HYPERLIPIDEMIA: Patient is taking moderate or high intensity statin: yes, Atorvastatin 40mg daily HEALTH MAINTENANCE REVIEW: Health Maintenance Due Topic Date Due HIV Screening Never done Depression, Most Recent Score >= 10 (will fire each visit until score < 10) 12/18/2020 Diabetic Foot Exam 2021 COVID-19 Vaccine () 05/25/2023 ASSESSMENT & PLAN: ICD-10-CM 1. Type 2 diabetes mellitus with hemoglobin A1c goal of less than 7.0% ([facility]) E11.9 2. Type 2 diabetes mellitus with stage 3a chronic kidney disease, with long-term current use of insulin ([facility]) E11.22 N18.31 Z79.4 BG Readings - Blood sugars not available. See above elevated BG Medications - Reviewed current regimen, patient is adherent to regimen. Walked patient thru giving bolus for meals Diet, Exercise, Lifestyle - No significant lifestyle changes since last visit. Discussed with patient today. Patient is agreeable to wear Dexcom G6. Patient aware to contact clinic if any hypoglycemia before next visit. MEDICATION CHANGES: yes, see below; preferred pharmacy: [facility] Diabetic Medications: Ozempic 1mg every Sunday (1mg = 36 clicks) Metformin 1000mg twice daily Novolog CF over 200 Omnipod Insulin Pump (Serial Number: need to get after starting) Insulin: Novolog Basal Rate: 0.55 units/hour START: Bolus: 4 units with breakfast, 4 units with lunch and 4 units with supper Bolus Calculator: on and using ICR: 18 ISF: 50 Blood Glucose Goal Limits: 70-180 Bolus Calculator: Target B Correct above: 180 Minimum B Active Insulin Time: 2 HEALTH MAINTENANCE INTERVENTIONS: Labs: Up to Date Immunizations: Up to Date Foot Exam: phone call visit Eye Exam: needs completed Annual Wellness Visit: N/A FOLLOW UP: Return to clinic in 3 weeks 10/29/2023 Neeraj Romero, RPh, CACP, CDE Clinical Pharmacist Medication Therapy Management Clinic 10/08/2023 1:58 PM documented in this encounter Plan of Treatment Upcoming Encounters Date Type Department Care Team (Latest Contact Info) Description 10/29/2023 11:30 AM EST Pharmacy Pharmacy, [facility] [address] [facility] [place] [address] Pharmacist1, [facility] [address] [facility] [place] [address] 10/30/2023 9:30 AM EST Telemedicine Psychology, [facility] [address], [place] [id number] Anjali Alanis, [facility] [address] [place] [address] 11/21/2023 9:20 AM EST Office Visit Family Practice [facility] [address] [place] [address] Gregory Rausch MD [address] [place] [address] 12/03/2023 12:30 PM EDT Home Visit [facility] at [facility] [address] [place] [address] Jaycee Sorto RN [address] [place] [address] 12/05/2023 10:24 AM EDT Hospital Encounter OR [facility], Operating Room [facility] [address] [place] [id number] Ramsey Burnett DO [address] [place] [address] 12/05/2023 10:24 AM EDT - 12/05/2023 11:17 AM EDT Surgery OR [facility], Operating Room [facility] [address] [place] [phone] Ramsey Burnett, DO [address] [facility] [place] [address] LEFT EXTRACAPSULAR CATARACT REMOVAL COMPLEX WITH IOL 12/06/2023 8:45 AM EDT Office Visit Ophthalmology, [facility] [address] [place] [address] Ramsey Burnett, DO [address] [place] [address] 12/14/2023 1:15 PM EDT Office Visit Katerina See [address] [place] [address] Ramsey Burnett, DO [address] [place] [address] 01/11/2024 1:15 PM EDT Office Visit Katerina See [address] [place] [address] Ramsey Burnett, DO [address] [place] [address] 02/04/2024 10:20 AM EDT Office Visit Family Practice [facility] [address] [place] [address] Gregory Rausch MD [address] [place] [address] Scheduled Procedures Name Priority Associated Diagnoses Date/Ti [...] Additional history exists CKD PHOS USE SMARTSET 26244 06/18/202405/26, 06/16/2023, 06/15/2023, Additional history exists Diabetic Eye Exam 09/13/2024 09/13/2023, , 09/13/2023, Additional history exists B-12 09/18/2024 09/18/2023, 08/24, 2020, Additional history exists CKD HGB USE SMARTSET 54818 10/15/202410/15, 07/31/2023, 07/31/2023, Additional history exists TSH [...] this encounter Medical Devices Implanted Type Area Wire Fence Builder Device Identifier Shelf Expiration Date Model / Serial / Lot Cath Roselia Single Lumen - [id number] Implanted:Qty : 1 on 03/12/2008 at OR [facility] Left: Chest [employer] *DO NOT USE* 07/25/2012 21-4053-24 / / [id number] Valve Tarsha Aortic [id number] - [id number] Implanted:Qty : 1 on 11/01/2010 at OR [facility] N/A: Heart Fe3 MedicalCIPureshield DANIEL 05/20/2012 [id number]-25 / / [id number] Mesh Soft [id number] - [id number] Implanted:Qty : 1 on 10/10/2019 by Gigi Hendrickson MD at OR [facility] N/A: Abdomen CR BARD : DAVOL [id number] 05/21/2024 [id number] / / [id number] Lens 22.5 Sn60wf - [id number] - [id number] Implanted:Qty : 1 on 09/15/2020 by Renaldo Cook, Cece Acosta MD at OR [facility] Right: Eye IVA : SURGICAL [id number] 05/13/2025 SN60 WF.225 / [id number] / [id number] documented as of this encounter Visit Diagnoses Diagnosis Type 2 diabetes mellitus with hemoglobin A1c goal of less than 7.0% ([facility])- Primary Type 2 diabetes mellitus with stage 3a chronic kidney disease, with long-term current use of insulin ([facility]) Cataract Unspecified cataract documented in this encounter [...] the patient have Health Care Power of Test Desk Operator? No Full Code 10/10/2019 8:40 AM [...] patient or by statute hierarchy) Care Teams Mule Packer Relationship Specialty Start Date End Date Gregory Rausch MD [address] [place] [address] PCP - General Family Medicine 02/12/20 documented as of this encounter
--- OUTSIDE RECORDS SUMMARY | 2023-10-27 12:07 | External Medical Summary | Summary of Care ---
Author Name Unknown Organization [facility] Address [address] [place] [address] Phone [phone] Care Team Providers Care Enamel Machine Operator Name Role Phone Gregory Rausch MD Primary Care Provider [phone] Reason for Visit * Reason Onset Date Comments [facility]: Acute 10/27/2023 Encounter Details Date Type Department Care Team (Late st Contact Info) Description 10/27/2023 10:30 AM EST Scheduled Telephone [facility], [facility] [address] [place] [address] [facility], Nurse [facility] [address] [place] [address] Allergies Active Allergy Reactions Criticality Noted Date [...] hypoglycemia E11.9 100 Tab 3 07/06/2021 Active GliphoTouch Verio w/Device Kit Use up to 4 [...] ER 10 MEQ Oral Tablet Extended ReleaseIndications:Ac atka on chronic heart failure with preserved ejection [...] hemoglobin A1c goal of less than 7.0% ([facility]),Type 2 diabetes mellitus with stage 3a chronic kidney disease, with long-term current use of insulin ([facility]) Inject 30 Units under the skin at bedtime. 6 mL 2 07/31/2023 Active BD Pen Needle Short U/F 31G X 8 MMIndications:Type 2 diabetes mellitus with hemoglobin A1c goal of less than 7.0% ([facility]),Type 2 diabetes mellitus with stage 3a chronic kidney disease, with long-term current use of insulin ([facility]) Use with insulin 4 times daily 400 Each 3 07/31/2023 Active Gaviscon 80-14.2 MG Oral Tablet Chewable (Alum Hydroxide-Mag Trisilicate) Take by mouth as needed. 0 Active Atorvastatin Calcium 40 MG Oral Tablet (Lipitor)Indications: Heart failure, systolic, due to idiopathic cardiomyopathy ([facility]),S/P aortic valve replacement,HTN, goal below 140/80,Dyslipidemia, [...] hemoglobin A1c goal of less than 7.0% ([facility]) Use up to 50 units per [...] heart failure with preserved ejection fraction (HFpEF) ([facility]) One tablet one morning twice per week (Sunday and Sunday), 30 minutes prior to torsemide dose 30 Tablet 3 10/02/2023 Active Ammonium Lactate 12 % External Lotion (Lac-Hydrin) Apply to both feet once daily. 400 g 3 10/02/2023 Active Nystatin 429937 UNIT/GM External Powder (Nystop)Indications:C andidal intertrigo Apply [...] hemoglobin A1c goal of less than 7.0% ([facility]),Type 2 diabetes mellitus with diabetic mononeuropathy, with long-term current use of insulin ([facility]),Type 2 diabetes mellitus with both eyes affected by mild nonproliferative retinopathy and macular edema, with long-term current use of insulin ([facility]),Type 2 diabetes mellitus with stage 3a chronic kidney disease, with long-term current use of insulin ([facility]) Inject 2 mg under the skin once a week. 9 mL 3 10/01/2023 Active traZODone HCl 100 MG Oral Tablet (Desyrel) Take 1 Tablet by mouth at bedtime. 0 Active Dexcom G6 TransmitterIndication s:Type 2 diabetes mellitus with hemoglobin A1c goal of less than 7.0% ([facility]) Use as directed. Use 1 transmitter every 90 days E 11.9 1 Each 3 10/18/2023 Active Dexcom G6 SensorIndications:Typ e 2 diabetes mellitus with hemoglobin A1c goal of less than 7.0% ([facility]) Use as directed. Use 1 sensor [...] eye 09/28/2020 Coronary artery disease invo lving galena coronary artery of galena heart without angina pectoris 12/16/2019 Last Assessment [...] 12/21/2016 Diabetes mellitus 01/05/2014 12/21/2016 LEYVA RESEARCH OTHER*[id number] 01/05/2014 12/21/2016 Axillary pain 11/03/2013 12/21/2016 Obesity, [...] cath 09/201008/26/2011 12/21/2016 FOLLOWING SURGERY, UNSPECIFI ED ([facility] 08/25/2011) 08/26/2011 12/21/2016 ADVANCE DIRECTIVE INFORMATION 04/17/2011 12/21/2016 Overview: Yes, Patient instructed to provide copy of advance directive for provider to review and to be scanned into Electronic Medical Record ADVANCE DIRECTIVE INFORMATION 03/01/2011 12/21/2016 Overview: Yes, Patient instructed to provide copy of advance directive for provider to review and to be scanned into Electronic Medical Record [facility] V710 Clinical Trial*[id number] 12/22/2010 04/14/2011 S/P aortic valve replacement 12/01/2010 08/26/2011 S/P AORTIC VALVE REPLACEMENT - #25 pericardial Mc valve 11/01/2010 06/28/2018 Overview: Aortic valve replacement with #25 pericardial Mc valve, model 2800TFX, serial number [id number] (Dr. Walker) [facility] V710 Clinical Trial*[id number] 10/18/2010 11/21/2010 Body mass index (BMI) of [...] 06/07/2018,01/08/20 18,12/05/2017,06/15,10/27/2013,09/12/2013 Pneumococcal Conjugate Vacci ne, 20-valent ([id number]) 06/22/2023 Pneumococcal Polysaccharide PPV23 (Pneumovax) 01/02/2008 Seasonal [...] [facility] Telephonic Nurse Follow-Up Call [facility] Subprogram: Focused Care Management (3-9 months) Follow [...] blood sugar was 236 Disposition: Routed to [facility] and/or [facility] Care Team for further advice [facility] personally phoned patient & recommended ED evaluation - patient is agreeable. Will place on for PC f/u tomorrow 10/28/23. Future Visits Scheduled: Future Appointments-next 60 days Date/Time Provider Specialty Dept Phone 10/27/2023 10:30 AM Chip, Nurse Rashard Rose [facility] [phone] 10/29/2023 11:30 AM Pharmacist1, [facility] [phone] 10/30/2023 9:30 AM (Arrive by 9:15 AM) Anjali Alanis LCSW Psychology [phone] 11/21/2023 9:20 AM (Arrive by 9:05 AM) Gregory Rausch MD Family Medicine [phone] 12/03/2023 12:30 PM Jaycee Sorto RN [facility] [phone] 12/06/2023 8:45 AM Ramsey Burnett, DO Ophthalmology [phone] 12/14/2023 1:15 PM Ramsey Burnett DO Ophthalmology [phone] 01/11/2024 1:15 PM Ramsey Burnett DO Ophthalmology [phone] 02/04/2024 10:20 AM (Arrive by 10:05 AM) Gregory Rausch MD Family Medicine [phone] Ailin Hugo RN [facility] Handle Sewer/ [facility] Toll Free Number: documented in this encounter Plan of Treatment Upcoming Encounters Date Type Department Care Team (Latest Contact Info) Description 10/28/2023 3:00 PM EST Scheduled Telephone [facility], [address] [place] [address] [facility], Nurse [facility] [address] [place] [address] 10/29/2023 11:30 AM EST Pharmacy Pharmacy, [facility] [address] [facility] [address] [facility] [place] [address] Pharmacist1, [facility] [address] [facility] [place] [address] 10/30/2023 9:30 AM EST Telemedicine Psychology, [place] [address] [place] [address] Anjali Alanis LCSW [facility] [place] [address] 11/21/2023 9:20 AM EST Office Visit Family Practice [facility] [address] [place] [address] Gregory Rausch MD [address] [place] [address] 12/03/2023 12:30 PM EDT Home Visit [facility] [place], [facility] [address] [place] [address] Jaycee Sorto RN [address] [place] [address] 12/05/2023 10:24 AM EDT Hospital Encounter [facility], Operating Room [facility] [address] [place] [phone] Ramsey Burnett DO [address] [address] 12/05/2023 10:24 AM EDT - 12/05/2023 11:17 AM EDT Surgery [place] [facility], Operating Room [facility] [address] [place] [phone] Ramsey Burnett DO [address] [address] LEFT EXTRACAPSULAR CATARACT REMOVAL COMPLEX WITH IOL 12/06/2023 8:45 AM EDT Office Visit Ophthalmology, [facility] [address] [place] [address] Ramsey Burnett DO [address] [address] 12/14/2023 1:15 PM EDT Office Visit Katerina See [address] [address] Ramsey Burnett, DO [address] [place] [address] 01/11/2024 1:15 PM EDT Office Visit Ophthalmology, [place] [address] [address] Ramsey Burnett, DO [address] [address] 02/04/2024 10:20 AM EDT Office Visit [facility] [address] [place] [address] Gregory Rausch MD [address] [place] [address] Scheduled Procedures Name Priority Associated Diagnoses Date/Ti [...] Additional history exists CKD PHOS USE SMARTSET 21375 06/18/2024 09/2 01/2023, 06/16/2023, 06/15/2023, Additional history exists Diabetic Eye Exam 09/13/2024 09/13/2023, , 09/13/2023, Additional history exists B-12 09/18/2024 09/18/2023, 08/24, 2020, Additional history exists CKD HGB USE SMARTSET 04760 10/15/202410/15, 07/31/2023, 07/31/2023, Additional history exists TSH [...] this encounter Medical Devices Implanted Type Area Spiritual Minister Device Identifier Shelf Expiration Date Model / Serial / Lot Cath Roselia Single Lumen - [id number] Implanted:Qty : 1 on 03/12/2008 at OR [facility] Left: Chest [employer] *DO NOT USE* 07/25/2012 21-4053-24 / / [id number] Valve Tarsha Aortic [id number] - [id number] Implanted:Qty : 1 on 11/01/2010 at OR [facility] N/A: Heart [employer] 05/20/2012 [id number]-25 / / [id number] Mesh Soft [id number] - [id number] Implanted:Qty : 1 on 10/10/2019 by Gigi Hendrickson MD at [facility] N/A: Abdomen CR BARD : DAVOL [id number] 05/21/2024 [id number] / / [id number] Lens 22.5 Sn60wf - [id number] - [id number] Implanted:Qty : 1 on 09/15/2020 by Renaldo Cook, Cece Acosta MD at [facility] Right: Eye IVA : SURGICAL [id number] 05/13/2025 SN60 WF.225 / [id number] / [id number] documented as of this encounter Advance [...] the patient have Health Care Power of Hand Binder Cutter? No Full Code 10/10/2019 8:40 AM 10/10/2019 5:53 PM This order reflects the patients wishes and were consensually agreed upon. Full Code 11/06/2017 4:55 PM 11/07/2017 7:14 PM This order reflects the patients wishes and were consensually agreed upon. Healthcare Agents on File Name Relationship Healthcare Agent [facility] Communication Gigi Rose Adult Child Health Care Repr esentative (appointed verbally by patient or by statute hierarchy) Care Teams Enamel Machine Operator Relationship Specialty Start Date End Date Gregory Rausch MD [address] [place] [address] PCP - General Family Medicine 02/12/20 documented as of this encounter
--- OUTSIDE RECORDS SUMMARY | 2023-10-27 12:08 | External Medical Summary | Summary of Care ---
Author Name Unknown Organization [facility] Address [address] [place] [address] Phone [phone] Care Team Providers Care Speedometer Inspector Name Role Phone Gregory Rausch MD Primary Care Provider [phone] Reason for Visit * Reason Comments [facility]: Maintenance Encounter Details Date Type Department Care Team (Late st Contact Info) Description 10/15/2023 4:00 PM EST Home Visit [facility], [facility] [address] [facility] [place] [address] Jaycee Sorto, RN [address] [facility] [place] [address] Allergies Active Allergy Reactions Criticality Noted Date Comments Adhesive Tape 07/02/2017 Can tolerate band-aids Glycerin Other (Please comment) 03/12/2008 Topical agents with glycein-burning & itching Lactose 12/09/2014 Dairy - gas Lisinopril Cough 01/21/2010 Monosodium Glutamate Edema Other 03/12/2008 Hands and feet Penicillins Rash 11/14/2007 documented as of this encounter (statuses as of 10/15/2023) Medications Medication Sig Dispensed Refills Start Date [...] hypoglycemia E11.9 100 Tab 3 07/06/2021 Active Startup WeekendToLabcyte Verio w/Device Kit Use up to 4 times a day E11.9 1 Kit 0 02/10/2022 Active Startup WeekendTouch Delica Lancets 33G TEST 4 TIMES DAILY [...] insulin pump 1 Kit 0 01/11/2023 Active Dexcom G6 SensorIndications:Typ e 2 diabetes mellitus with hemoglobin A1c goal of less than 7.0% (HCC) Use as directed. Use 1 sensor every 10 days E 11.9 9 Each 3 01/16/2023 Active Dexcom G6 TransmitterIndication s:Type 2 diabetes mellitus with hemoglobin A1c goal of less than 7.0% (HCC) Use as directed. Use 1 transmitter every 90 days E 11.9 1 Each 3 01/16/2023 Active Fluticasone Propionate 50 MCG/ACT Nasal Suspension [...] ER 10 MEQ Oral Tablet Extended ReleaseIndications:Ac [place] on chronic heart failure with preserved ejection fraction (HFpEF) ([facility]) Take 1 Tablet by mouth in the [...] hemoglobin A1c goal of less than 7.0% ([facility]),Type 2 diabetes mellitus with stage 3a chronic kidney disease, with long-term current use of insulin ([facility]) Inject 30 Units under the skin at bedtime. 6 mL 2 07/31/2023 Active BD Pen Needle Short U/F 31G X 8 MMIndications:Type 2 diabetes mellitus with hemoglobin A1c goal of less than 7.0% ([facility]),Type 2 diabetes mellitus with stage 3a chronic kidney disease, with long-term current use of insulin ([facility]) Use with insulin 4 times daily 400 Each 3 07/31/2023 Active Gaviscon 80-14.2 MG Oral Tablet Chewable (Alum Hydroxide-Mag Trisilicate) Take by mouth as needed. 0 Active Atorvastatin Calcium 40 MG Oral Tablet (Lipitor)Indications: Heart failure, systolic, due to idiopathic cardiomyopathy ([facility]),S/P aortic valve replacement,HTN, goal below 140/80,Dyslipidemia, goal [...] hemoglobin A1c goal of less than 7.0% ([facility]) Use up to 50 units per day [...] heart failure with preserved ejection fraction (HFpEF) ([facility]) One tablet one morning twice per week (Sunday and Sunday), 30 minutes prior to torsemide dose 30 Tablet 3 10/02/2023 Active Gabapentin 100 MG Oral Capsule (Neurontin)Indication s:Polyneuropathy associated with underlying disease ([facility]) Take 1 Capsule by mouth in the morning and 1 Capsule at noon and 1 Capsule before bedtime. 90 Capsule 0 10/02/2023 Active Ammonium Lactate 12 % External Lotion (Lac-Hydrin) Apply to both feet once daily. 400 g 3 10/02/2023 Active Nystatin [id number] UNIT/GM External Powder (Nystop)Indications:C andidal intertrigo Apply [...] hemoglobin A1c goal of less than 7.0% ([facility]),Type 2 diabetes mellitus with diabetic mononeuropathy, with long-term current use of insulin (HCC),Type 2 diabetes mellitus with both eyes affected by mild nonproliferative retinopathy and macular edema, with long-term current use of insulin ([facility]),Type 2 diabetes mellitus with stage 3a chronic kidney disease, with long-term current use of insulin ([facility]) Inject 2 mg under the skin once a week. 9 mL 3 10/01/2023 Active traZODone HCl 100 MG Oral Tablet (Desyrel) Take 1 Tablet by mouth at bedtime. 0 Active documented as of this encounter (statuses as of 10/15/2023) Active Problems Problem Noted Date Diagnosed Date [...] eye 09/28/2020 Coronary artery disease invo lving [place] coronary artery of [place] heart without angina pectoris 12/16/2019 Last Assessment [...] as of this encounter (statuses as of 10/15/2023) Resolved Problems Problem Noted Date Diagnosed Date [...] 12/21/2016 Diabetes mellitus 01/05/2014 12/21/2016 LEYVA RESEARCH OTHER*[id number] 01/05/2014 12/21/2016 Axillary pain 11/03/2013 12/21/2016 Obesity, [...] cath 09/201008/26/2011 12/21/2016 FOLLOWING SURGERY, UNSPECIFI ED ([facility] 08/25/2011) 08/26/2011 12/21/2016 ADVANCE DIRECTIVE INFORMATION 04/17/2011 12/21/2016 Overview: Yes, Patient instructed to provide copy of advance directive for provider to review and to be scanned into Electronic Medical Record ADVANCE DIRECTIVE INFORMATION 03/01/2011 12/21/2016 Overview: Yes, Patient instructed to provide copy of advance directive for provider to review and to be scanned into Electronic Medical Record [facility] V710 Clinical Trial*[id number] 12/22/2010 04/14/2011 S/P aortic valve replacement 12/01/2010 08/26/2011 S/P AORTIC VALVE REPLACEMENT - #25 pericardial Mc valve 11/01/2010 06/28/2018 Overview: Aortic valve replacement with #25 pericardial Mc valve, model 2800TFX, serial number [id number] (Dr. Walker) [facility] V710 Clinical Trial*[id number] 10/18/2010 11/21/2010 Body mass index (BMI) of [...] inactive term Hypertensive heart failure, severity unknown 07/23/2013 Major depressive disorder 02/24/2009 Overview: ICD-10 [...] as of this encounter (statuses as of 10/15/2023) Immunizations Name Administration Dates Next Due COVID-19 mRNA, LNP-s, No Pre serve, 2-Dose Series (Moderna) 10/25/2021,02/16/2021,01/18/2021 HEP A - Hepatitis A (Adult > 18 yrs) 06/07/2018, 12/05/2017 Hepatitis B, 20+ yrs 06/07/2018,01/08/20 18,12/05/2017,06/15,10/27/2013,09/12/2013 Pneumococcal Conjugate Vacci ne, 20-valent ([id number]) 06/22/2023 Pneumococcal Polysaccharide PPV23 (Pneumovax) 01/02/2008 Seasonal [...] on file documented as of this encounter Last Filed Vital Signs Vital Sign Reading Time Taken Comments Blood Pressure 100/68 10/15/2023 2:11 PM EST Pulse 92 10/15/2023 2:11 PM EST Temperature 36.2 C (97.2 F) 10/15/2023 2:11 PM ES T Respiratory Rate 18 10/15/2023 2:11 PM EST Oxygen Saturation 98% 10/15/2023 2:11 PM EST Inhaled Oxygen Concentration - - Weight - - Height - - Body Mass Index - - documented in this encounter Functional Status Functional Status Response [...] as of this encounter Progress Notes * Jaycee Sorto, RN - 10/15/2023 1:47 PM EST Images from the original note were not included. [facility] Visit Date: 10/15/2023 Time: 1:47 PM Name: Jovita Rose : 1960 Current Concerns: Pt seen for return RNCM visit Had cardiology appt this am Zio monitor was ordered to assess and R?O afib given splenic infarct No change in medications Was referred to GI for f/u of anemia/ulceration/hospitalizations and check CBC Has not been weighing consistently on AMC Does confirm that it does transmit She will try to remember to do her daily wts She reports she has not been checking her blood sugar and she did not get to continue the dexcom last month because not everything was sent to her She has f/u with MTM on 10/29 about this Euvolemic - no increased LE edema or SOB States she has been feeling well Has cg [place] with her - M-F 8am -3pm Physical Exam: BP 100/68 | Pulse 92 | Temp 36.2 C (97.2 F) | Resp 18 | LMP 04/07/2011 | SpO2 98% Pain 0 Physical Exam Constitutional: General: She is not in acute distress. Cardiovascular: Rate and Rhythm: Normal rate and regular rhythm. Pulses: Normal pulses. Heart sounds: Normal heart sounds. Pulmonary: Effort: Pulmonary effort is normal. Breath sounds: Normal breath sounds. Abdominal: General: Bowel sounds are normal. There is distension (at baseline). Palpations: Abdomen is soft. Musculoskeletal: Right lower leg: Edema (trace) present. Left lower leg: Edema (trace) present. Skin: General: Skin is warm and dry. Neurological: Mental Status: She is alert and oriented to person, place, and time. Problems/Symptoms: Review of Systems Constitutional: Negative. HENT: Negative. Eyes: Negative. Negative for itching. Respiratory: Positive for shortness of breath (SHAW - at baseline). Cardiovascular: Positive for leg swelling. Gastrointestinal: Positive for abdominal distention (baseline). Genitourinary: Negative. Musculoskeletal: Negative. Skin: Negative. Neurological: Negative. Hematological: Negative. Psychiatric/Behavioral: Negative. Medication Reconciliation: (See medication list) Does patient take medications as ordered: Yes Patient Well Being: PHQ2/9: No questionnaires available. No change in living situation Denies falls [facility]-10 Completed this Visit: No. Routine visit and No falls since last visit Advanced Care Planning: POLST. Reinforcement/Education: DIABETES: -Blood sugar testing schedule: Twice a day, once in the morning and again 2 hours after a meal. -Blood sugar goals: Less than 120, fasting and less than 180, 2 hours after a meal -Record and take to PCP appointments -Notify your doctor if your blood sugar is consistently above goal -Hypoglycemia (low blood sugar) action plan: If blood sugar is less than 70 or having symptoms of low blood sugar eat or drink a snack of 15gm of carbohydrate (2-3 glucose tablets, glass juice, 1Cnon-fat milk, etc) wait 15 min if blood sugar still low repeat snack, wait 15 minutes if still low call health care provider. Ask provider if a medication adjustment is needed if experiencing low blood sugars frequently, twice a week or more. -Hyperglycemia (high blood sugar) action Plan: Take medications as directed, test blood sugars frequently, if above goal, contact your health care provider. Ask for changes to medication if blood sugars continue to run above goal. -Eat three well balanced meals a day 5 servings fruit/vegetable per day Educated on home safety: Create a fall proof home Clear floors of clutter, loose wires, throw rugs, and cords. Make sure halls, stairways, and entrances are well lit. Install a nightlight in your bedroom, hallway and bathroom. Install grab bars or handrails in the bathroom and on stairs. Use a non-skid tub/shower mat. Avoid climbing on a chair; instead use a step stool with a high handrail. Keep sidewalks and steps in good repair Keep steps and sidewalks free of snow and ice. Using aids to support and prevent falls If you have poor balance or have fallen in the past, consider additional support such as a cane or walker. Use a cane with good support and that is the proper length for you. Use a walker if a cane doesnt provide enough support. Avoid medications that increase the risk of falling by causing dizziness, change in sensation or slowed reflexes. Certain medicines may cause falls - blood pressure pills, heart medicines, water pills, or sleepingpills. Be sure to understand each medicine that you are taking and any side effects that may occur. Improve your balance and flexibility with muscle strengthening exercises. Ask your health care provider for some exercises that will be right for you. Reviewed HF symptom monitoring: -Weigh self daily in am, post-void and record -Do not add salt to food, avoid foods high in sodium -Limit fluids to 2 liters per day -Report the following: ->2 lb weight gain in one day or 5 lbs in a week to PCP -increased edema in feet, abdomen or hands -increased SOB and cough, especially if at night -increased fatigue or vertigo Reinforced safety education and fall prevention. and Reinforced medication regimen. Timing., Dosing., and Purspose. Treatment/Plan: Continue meds as prescribed/reviewed [facility] clinic for DM management Check blood sugars QID Fall precautions - use walker Elevate LE as much as possible Daily wts via [facility] Has case finisher Keep all appts as scheduled Home Interventions Provided: Home Intervention: Other; eval Reinforced current Plan of Care, including self-management and medication regimen Patient's 'Red Flags': Wt gain of 3 lbs in 24 hrs or 5 lb in one week Increase in LE edema Increased SOB Patient Needs to Remember: Call [facility] at with any new or worsening health concerns or problems, red flag symptoms. Referrals Needed: Other none Follow Up: Is there cellular connectivity/connectivity in the home? Yes Does the patient have internet in the home? Yes Patient encouraged to call the intake phone number for all urgent but not emergent issues. Is the patient new to [facility] within the last 30 days? No, Assess appropriateness for upcoming telehealth visits. Cancel telehealth visits & schedule home visit with care senior project leader/team lead(s)as indicated. Provider is in agreement with Plan of Care: Yes Scheduled to follow up with patient in 6 weeks. Jaycee Sorto RN 10/15/2023 1:47 PM documented in this encounter Plan of Treatment Upcoming Encounters Date Type Department Care Team (Latest Contact Info) Description 10/29/2023 11:30 AM EST Pharmacy Pharmacy, [facility] [address] [facility] [place] [address] Pharmacist1, [facility] [address] [facility] [place] [address] 10/30/2023 9:30 AM EST Telemedicine Psychology, [place] [address] [place] [address] Anjali Alanis [facility] [address] [place] [address] 11/21/2023 9:20 AM EST Office Visit Family Practice [facility] [address] [place] [address] Gregory Rausch MD [address] [place] [address] 12/03/2023 12:30 PM EDT Home Visit [facility] [place], [facility] [address] [place] [address] Jaycee Sorto, RN [address] [place] [address] 12/05/2023 10:39 AM EDT Hospital Encounter [facility], Operating Room [facility] [address] [place] [place] [address] Ramsey Burnett, DO [address] [place] [address] 12/05/2023 10:39 AM EDT - 12/05/2023 11:32 AM EDT Surgery OR [facility], Operating Room [facility] [address] [place] [address] Ramsey Burnett, DO [address] [place] [address] LEFT EXTRACAPSULAR CATARACT REMOVAL COMPLEX WITH IOL 12/06/2023 8:45 AM EDT Office Visit Ophthalmology, [facility] [address] [facility] [place] [address] Ramsey Burnett, DO [address] [place] [address] 12/13/2023 2:15 PM EDT Office Visit Ophthalmology, [facility] [address] [facility] [place] [address] Ramsey Burnett, DO [address] [place] [address] 01/10/2024 2:00 PM EDT Office Visit Ophthalmology, [facility] [address] [place] [address] Ramsey Burnett, DO [address] [place] [address] 02/04/2024 10:20 AM EDT Office Visit Family Practice [facility] [address] [place] [address] Gregory Rausch MD [address] [place] [address] Scheduled Procedures Name Priority Associated Diagnoses Date/Ti me EXTRACAPSULAR CATARACT REMOV AL COMPLEX WITH IOL Cataract 12/05/2023 10:39 AM EDT COLONOSCOPY FLEXIBLE PROXIMA L DIAGNOSTIC [...] 10/15/2023, 11/0 05/2023, 07/31/2023, Additional history exists TSH 06/06/2024 06/06/2023, 01/23, 12/22/2022, Additional history exists CKD PHOS USE SMARTSET 51488 06/18/202405/26, 06/16/2023, 06/15/2023, Additional history exists Diabetic Eye Exam 09/13/2024 09/13/2023, , 09/13/2023, Additional history exists B-12 09/18/2024 09/18/2023, 08/24, 2020, Additional history exists CKD HGB USE SMARTSET 03402 10/15/202410/15, 07/31/2023, 07/31/2023, Additional history exists COLONOSCOPY-EVERY 3 YRS AGES [...] this encounter Medical Devices Implanted Type Area Curtain Inspector Device Identifier Shelf Expiration Date Model / Serial / Lot Cath Roselia Single Lumen - [id number] Implanted:Qty : 1 on 03/12/2008 at OR [facility] Left: Chest [employer] *DO NOT USE* 07/25/2012 [id number] / / [id number] Valve Tarsha Aortic [id number] - [id number] Implanted:Qty : 1 on 11/01/2010 at OR [facility] N/A: Heart [employer] DANIEL 05/20/2012 [id number] / / [id number] Mesh Soft [id number] - [id number] Implanted:Qty : 1 on 10/10/2019 by Gigi Hendrickson MD at [place] [facility] N/A: Abdomen CR BARD : DAVOL [id number] 05/21/2024 [id number] / / [id number] Lens 22.5 Sn60wf - [id number] - [id number] Implanted:Qty : 1 on 09/15/2020 by Renaldo Cook, Cece Acosta MD at OR [facility] Right: Eye IVA : SURGICAL [id number] 05/13/2025 SN60 WF.225 / [id number] documented as of this encounter Advance [...] the patient have Health Care Power of Engineering Design Supervisor? No Full Code 10/10/2019 8:40 AM 10/10/2019 5:53 PM This order reflects the patients wishes and were consensually agreed upon. Full Code 11/06/2017 4:55 PM 11/07/2017 7:14 PM This order reflects the patients wishes and were consensually agreed upon. Healthcare Agents on File Name Relationship Healthcare Agent [facility] Communication Gigi Rose Adult Child Health Care Repr esentative (appointed verbally by patient or by statute hierarchy) Care Teams Speedometer Inspector Relationship Specialty Start Date End Date Gregory Rausch MD [address] [place] [address] PCP - General Family Medicine 02/12/20 documented as of this encounter
--- OUTSIDE RECORDS SUMMARY | 2023-10-27 12:08 | External Medical Summary | Summary of Care ---
Author Name Unknown Organization [facility] Address [address] [place] [address] Phone [phone] Care Team Providers Care Regional Vice President Life Sales Name Role Phone Gregory Rausch MD Primary Care Provider [phone] Reason for Visit * Reason Onset Date Comments Test Results 10/22/2023 Encounter Details Date Type Department Care Team (Late st Contact Info) Description 10/22/2023 Telephone Cardiology, [facility] [address] [place] [address] [...] as of this encounter (statuses as of 10/22/2023) Medications Medication Sig Dispensed Refills Start Date [...] hypoglycemia E11.9 100 Tab 3 07/06/2021 Active E-DuctionTouch Verio w/Device Kit Use up to 4 times a day E11.9 1 Kit 0 02/10/2022 Active E-DuctionTouch Delica Lancets 33G TEST 4 TIMES DAILY [...] Heart failure, systolic, due to idiopathic cardiomyopathy ([facility] [...] to torsemide dose 30 Tablet 10/02/2023 Active Gabapentin 100 MG Oral Capsule (Neurontin)Indication s:Polyneuropathy associated with underlying disease ([facility]) Take 1 Capsule by mouth in the morning and 1 Capsule at noon and 1 Capsule before bedtime. 90 Capsule 0 10/02/2023 Active Ammonium Lactate 12 % External Lotion (Lac-Hydrin) Apply to both feet once daily. 400 g 3 10/02/2023 Active Nystatin 605859 UNIT/GM External Powder (Nystop)Indications:C andidal intertrigo Apply [...] E 11.9 9 Each 3 10/18/2023 Active documented as of this encounter (statuses as of 10/22/2023) Active Problems Problem Noted Date Diagnosed Date [...] eye 09/28/2020 Coronary artery disease invo lving [place] coronary artery of [place] heart without angina pectoris 12/16/2019 Last Assessment [...] as of this encounter (statuses as of 10/22/2023) Resolved Problems Problem Noted Date Diagnosed Date [...] 12/21/2016 Diabetes mellitus 01/05/2014 12/21/2016 LEYVA RESEARCH OTHER*[id number] 01/05/2014 12/21/2016 Axillary pain 11/03/2013 12/21/2016 Obesity, [...] cath 09/201008/26/2011 12/21/2016 FOLLOWING SURGERY, UNSPECIFI ED ([facility] 08/25/2011) 08/26/2011 12/21/2016 ADVANCE DIRECTIVE INFORMATION 04/17/2011 12/21/2016 Overview: Yes, Patient instructed to provide copy of advance directive for provider to review and to be scanned into Electronic Medical Record ADVANCE DIRECTIVE INFORMATION 03/01/2011 12/21/2016 Overview: Yes, Patient instructed to provide copy of advance directive for provider to review and to be scanned into Electronic Medical Record [facility] V710 Clinical Trial*[id number] 12/22/2010 04/14/2011 S/P aortic valve replacement 12/01/2010 08/26/2011 S/P AORTIC VALVE REPLACEMENT - #25 pericardial Mc valve 11/01/2010 06/28/2018 Overview: Aortic valve replacement with #25 pericardial Mc valve, model 2800TFX, serial number [id number] (Dr. Walker) [facility] V710 Clinical Trial*[id number] 10/18/2010 11/21/2010 Body mass index (BMI) of [...] as of this encounter (statuses as of 10/22/2023) Immunizations Name Administration Dates Next Due COVID-19 mRNA, LNP-s, No Pre serve, 2-Dose Series (Moderna) 10/25/2021,02/16/2021,01/18/2021 HEP A - Hepatitis A (Adult > 18 yrs) 06/07/2018, 12/05/2017 Hepatitis B, 20+ yrs 06/07/2018,01/08/20 18,12/05/2017,06/15,10/27/2013,09/12/2013 Pneumococcal Conjugate Vacci ne, 20-valent ([id number]) 06/22/2023 Pneumococcal Polysaccharide PPV23 (Pneumovax) 01/02/2008 Seasonal [...] 10/22/2023 3:56 PM EST Sent patient a [employer] message to make aware. Lab ordered. ----- [...] Description 10/29/2023 11:30 AM EST Pharmacy Pharmacy, [facility] [place] [address] [place] [address] Pharmacist1, [facility] [address] [place] [address] 10/30/2023 9:30 AM EST Telemedicine Psychology, [place] [address] [place] [address] [facility] [address] [place] [address] 11/21/2023 9:20 AM EST Office Visit Family Practice [facility] [address] [place] [address] Gregory Rausch MD [address] [place] [address] 12/03/2023 12:30 PM EDT Home Visit [facility] at [facility] [address] [place] [address] Jaycee Sorto RN [address] [place] [address] 12/05/2023 10:24 AM EDT Hospital Encounter [facility], Operating Room [facility] [address] [place] [address] Ramsey Burnett, DO [address] [address] 12/05/2023 10:24 AM EDT - 12/05/2023 11:17 AM EDT Surgery OR [facility], Operating Room [facility] [address] [place] [phone] Ramsey Burnett, DO [address] [place] [address] LEFT EXTRACAPSULAR CATARACT REMOVAL COMPLEX WITH IOL 12/06/2023 8:45 AM EDT Office Visit Ophthalmology, [facility] [address] [place] [address] Ramsey Burnett, DO [address] [place] [address] 12/13/2023 2:15 PM EDT Office Visit Ophthalmology, [facility] [address] [place] [address] Ramsey Burnett, DO [address] [place] [address] 01/10/2024 2:00 PM EDT Office Visit Ophthalmology, [facility] [address] [place] [address] Ramsey Burnett, DO [address] [place] [address] 02/04/2024 10:20 AM EDT Office Visit Family Practice [facility] [address] [place] [address] Gregory Rausch MD [address] [facility] [place] [address] Scheduled Orders Name Type Priority Associated Diagnoses [...] Additional history exists CKD PHOS USE SMARTSET 42485 06/18/2024 092 01/2023, 06/16/2023, 06/15/2023, Additional history exists Diabetic Eye Exam 09/13/2024 09/13/2023, , 09/13/2023, Additional history exists B-12 09/18/2024 09/18/2023, 08/24, 2020, Additional history exists CKD HGB USE SMARTSET 22355 10/15/202410/15, 07/31/2023, 07/31/2023, Additional history exists TSH [...] this encounter Medical Devices Implanted Type Area First Line Production Supervisor Device Identifier Shelf Expiration Date Model / Serial / Lot Cath Roselia Single Lumen - [id number] Implanted:Qty : 1 on 03/12/2008 at OR [facility] Left: Chest [employer] *DO NOT USE* 07/25/2012 21-4053-24 / / [id number] Valve Tarsha Aortic [id number] - [id number] Implanted:Qty : 1 on 11/01/2010 at OR [facility] N/A: Heart [employer] 05/20/2012 [id number]-[id number] / / [id number] Mesh Soft 60m30xm - [id number] Implanted:Qty : 1 on 10/10/2019 by Gigi Hendrickson MD at OR [facility] N/A: Abdomen CR BARD : DAVOL [id number] 05/21/2024 [id number] / / [id number] Lens 22.5 Sn60wf - [id number] - [id number] Implanted:Qty : 1 on 09/15/2020 by Renaldo Cook, Cece Acosta MD at OR [facility] Right: Eye IVA : SURGICAL [id number] 05/13/2025 SN60 WF.225 / [id number] / [id number] documented as of this encounter Visit [...] the patient have Health Care Power of Clinical Trials Manager? No Full Code 10/10/2019 8:40 AM 10/10/2019 [...] patient or by statute hierarchy) Care Teams Regional Vice President Life Sales Relationship Specialty Start Date End Date Gregory Rausch MD [address] [place] [address] PCP - General Family Medicine 02/12/20 documented as of this encounter
--- OUTSIDE RECORDS SUMMARY | 2023-10-27 12:08 | External Medical Summary | Summary of Care ---
Author Name Unknown Organization [facility] Address [address] [place] [address] Phone [phone] Care Team Providers Care Keyboarding Teacher Name Role Phone Deon Rausch MD Primary Care Provider [phone] Reason for Visit * Reason Comments Follow Up Encounter Details Date Type Department Care Team (Late st Contact Info) Description 10/15/2023 11:00 AM EST Office Visit Cardiology, [facility] [address] [place] [id number] Feli Teague PA-C [address] [place] [id number] S/P TAVR (transcatheter aortic valve replacement)*; HTN, goal below 130/80; Chronic heart failure with preserved ejection fraction (HCC); HTN, goal below 140/90; History of GI bleed; Hypomagnesemia; Heart palpitations; Palpitations; Splenic infarct Allergies Active Allergy Reactions Criticality Noted Date [...] hypoglycemia E11.9 100 Tab 3 07/06/2021 Active SavingStarTouch Verio w/Device Kit Use up to 4 times a day E11.9 1 Kit 0 02/10/2022 Active SavingStarTouch Delica Lancets 33G TEST 4 TIMES DAILY [...] ER 10 MEQ Oral Tablet Extended ReleaseIndications:Ac [place] on chronic heart failure with preserved ejection fraction (HFpEF) ([facility]) Take 1 Tablet by mouth in the [...] hemoglobin A1c goal of less than 7.0% ([facility]),Type 2 diabetes mellitus with stage 3a chronic kidney disease, with long-term current use of insulin ([facility]) Inject 30 Units under the skin at bedtime. 6 mL 2 07/31/2023 Active BD Pen Needle Short U/F 31G X 8 MMIndications:Type 2 diabetes mellitus with hemoglobin A1c goal of less than 7.0% ([facility]),Type 2 diabetes mellitus with stage 3a chronic kidney disease, with long-term current use of insulin ([facility]) Use with insulin 4 times daily 400 Each 3 07/31/2023 Active Gaviscon 80-14.2 MG Oral Tablet Chewable (Alum Hydroxide-Mag Trisilicate) Take by mouth as needed. 0 Active Atorvastatin Calcium 40 MG Oral Tablet (Lipitor)Indications: Heart failure, systolic, due to idiopathic cardiomyopathy ([facility]),S/P aortic valve replacement,HTN, goal below 140/80,Dyslipidemia, goal [...] hemoglobin A1c goal of less than 7.0% ([facility]) Use up to 50 units per day [...] heart failure with preserved ejection fraction (HFpEF) ([facility]) One tablet one morning twice per week (Sunday and Sunday), 30 minutes prior to torsemide dose 30 Tablet 3 10/02/2023 Active Gabapentin 100 MG Oral Capsule (Neurontin)Indication s:Polyneuropathy associated with underlying disease ([facility]) Take 1 Capsule by mouth in the morning and 1 Capsule at noon and 1 Capsule before bedtime. 90 Capsule 0 10/02/2023 Active Ammonium Lactate 12 % External Lotion (Lac-Hydrin) Apply to both feet once daily. 400 g 3 10/02/2023 Active Nystatin 654473 UNIT/GM External Powder (Nystop)Indications:C andidal intertrigo Apply [...] hemoglobin A1c goal of less than 7.0% ([facility]),Type 2 diabetes mellitus with diabetic mononeuropathy, with long-term current use of insulin ([facility]),Type 2 diabetes mellitus with both eyes affected by mild nonproliferative retinopathy and macular edema, with long-term current use of insulin ([facility]),Type 2 diabetes mellitus with stage 3a chronic kidney disease, with long-term current use of insulin ([facility]) Inject 2 mg under the skin once [...] eye 09/28/2020 Coronary artery disease invo lving kotlik coronary artery of kotlik heart without angina pectoris 12/16/2019 Last Assessment [...] 12/21/2016 Diabetes mellitus 01/05/2014 12/21/2016 LEYVA RESEARCH OTHER*[id number] 01/05/2014 12/21/2016 Axillary pain 11/03/2013 12/21/2016 Obesity, [...] cath 09/201008/26/2011 12/21/2016 FOLLOWING SURGERY, UNSPECIFI ED ([facility] 08/25/2011) 08/26/2011 12/21/2016 ADVANCE DIRECTIVE INFORMATION 04/17/2011 12/21/2016 Overview: Yes, Patient instructed to provide copy of advance directive for provider to review and to be scanned into Electronic Medical Record ADVANCE DIRECTIVE INFORMATION 03/01/2011 12/21/2016 Overview: Yes, Patient instructed to provide copy of advance directive for provider to review and to be scanned into Electronic Medical Record [facility] V710 Clinical Trial*[id number] 12/22/2010 04/14/2011 S/P aortic valve replacement 12/01/2010 08/26/2011 S/P AORTIC VALVE REPLACEMENT - #25 pericardial Mc valve 11/01/2010 06/28/2018 Overview: Aortic valve replacement with #25 pericardial Mc valve, model [id number], serial number [id number] (Dr. Meeks) [facility] V710 Clinical Trial*[id number] 10/18/2010 11/21/2010 Body mass index (BMI) of [...] 06/07/2018,01/08/20 18,12/05/2017,06/15,10/27/2013,09/12/2013 Pneumococcal Conjugate Vacci ne, 20-valent ([id number]) 06/22/2023 Pneumococcal Polysaccharide PPV23 (Pneumovax) 01/02/2008 Seasonal [...] Date Smoking Tobacco: Never Smokeless Tobacco: Never Tobacco Cessation:Counseling Given: Not Answered Alcohol Use Standard Drinks/Week Comments No 0 [...] Sign Reading Time Taken Comments Blood Pressure 118/64 10/15/2023 10:51 AM EST Pulse 90 10/15/2023 10:51 AM EST Temperature - - Respiratory Rate - - Oxygen Saturation 95% 10/15/2023 10:51 AM EST Inhaled Oxygen Concentration - - Weight 72.6 kg (160 lb) 10/15/2023 10:51 AM EST Height - - Body Mass Index 32.32 07/31/2023 10:46 AM EST documented in this encounter Functional Status Functional [...] as of this encounter Progress Notes * Feli Teague PA-C - 10/15/2023 10:55 AM EST 10/15/2023 Cardiology F/U: CHIEF COMPLAINT: Follow up, history of valve in valve transcatheter aortic valve replacement, history of left main/LAD coronary artery stent; chronic diastolic HF; history of possible pericarditis. SUBJECTIVE: Jovita Rose is a 62 year old female who presents today for routine cardiology f/u. She is accompanied by her aide. Last clinic evaluation approx [address] Muniz Since last visit in February, patient was admitted to [facility] in May with confusion, abdominal pain. Diagnosed with possible Pneumoperitoneum. Transferred to [facility]. Underwent 2 exploratory laparotomy. Etiology of pneumoperitoneum as unclear. No evidence of perforation. She underwent wound vac placement after first surgery and then abdomen was closed with second surgery. Repeat CT scans was concerning forpossible splenic infarcts. Per surgery, no intervention needed for splenic infarcts. She did have echo and ALMA without evidence of thrombus or vegetation on her TAVR. Her BP was low and multiple medswere adjusted on discharge to SNF including reduction in torsemide, metoprolol, metolazone. Spironolactone, valsartan were discontinued. Patient was then admitted in Jun 2023 for weakness at [facility] in [facility] for anemia. Suspected GI bleed. Had scopes with possible ulcerations. Treated with 4 units PRBC's. Plavix continued due to left main stent. She was to f/u with GI upon discharge but does not seem like this wasarranged. Since returning home, she is feeling better. She denies acute cardiac complaints. No recurrent bleeding. No abdominal pain. Getting stronger. She noted prior complaints of palpitations but now this has improved. HR in the 90's. She remains on reduced dose metoprolol. BP controlled Appears euvolemic. No chest pain, shortness of breath, palpitations, dizziness, syncope or near syncope. No orthopnea,PND, or increased lower extremity edema. No fever, chills, cough, hematochezia, melena, or hemoptysis. Review of Systems: See HPI for pertinent positives. All others negative, other than those noted in HPI. Past Cardiac History: History of remote bioprosthetic aortic valve replacement due to symptomatic severe aortic stenosis and the presence of a bicuspid aortic valve in 2010, then valve in valve TAVR in 2017 Has a left main stent extending into the aorta proximally and to the LAD distally which was placed in order to protect her left main at the time of the valve procedure (snorkel technique). Chronic dual antiplatelet therapy recommended. Chronic diastolic heart failure Cirrhosis due to hepatic steatosis Technically limited transthoracic images due to her history of breast carcinoma with past radiationtherapy, mastectomy History of past colon cancer History of asymptomatic sinus tachycardia Patient Active Problem List Diagnosis Code Dyslipidemia E78.5 Type 2 diabetes mellitus with hemoglobin A1c goal of less than 7.0% (HCC) E11.9 DANYELLE on CPAP G47.33 Acquired hypothyroidism E03.9 History of colon cancer Z85.038 History of breast cancer Z85.3 Benign paroxysmal positional vertigo due to bilateral vestibular disorder H81.13 Persistent insomnia G47.00 S/P TAVR (transcatheter aortic valve replacement) Z95.2 HTN, goal below 130/80 I10 H/O bilateral mastectomy Z90.13 LEYVA (nonalcoholic steatohepatitis) K75.81 Hoarding disorder F42.3 Social anxiety disorder F40.10 Cervical disc disorder with radiculopathy M50.10 S/P drug eluting coronary stent placement Z95.5 Schizoaffective disorder, bipolar type ([facility]) F25.0 Medical marijuana use Z79.899 Coronary artery disease involving kotlik coronary artery of kotlik heart without angina pectoris I25.10 Cystoid macular edema of right eye H35.351 Chronic kidney disease, stage 3a N18.31 Type 2 diabetes mellitus with stage 3a chronic kidney disease, with long-term current use of insulin ([facility]) E11.22, N18.31, Z79.4 Type 2 diabetes mellitus with both eyes affected by mild nonproliferative retinopathy and macular edema, with long-term current use of insulin ([facility]) E11.3213, Z79.4 Type 2 diabetes mellitus with diabetic peripheral angiopathy without gangrene ([facility]) E11.51 Obesity, Class I, BMI 30.0-34.9 (see actual BMI) E66.9 Thrombocytopenia ([facility]) D69.6 Social History Tobacco Use Smoking status: Never Smokeless tobacco: Never Vaping Use Vaping Use: Never used Substance Use Topics Alcohol use: No Drug use: No Family History Problem Relation Age of Onset Heart Disorder Father from [place] at age 51 Heart Disorder Mother CAD - at age 56 during second CABG Stroke Sister Heart Disorder Brother Older brother - CABG X 4 at age 65. Younger Brother [place] at age 45 Other (Other) Brother HIV +; [place] at age 31 Heart Disorder Son Coartaction of Aorta Diabetes Aunt (Unspecified) Diabetes Grandmother (Maternal) Past Surgical History: Procedure Laterality Date CARPAL TUNNEL SURGERY Left 12/09/2014 NEUROPLASTY MEDIAN NERVE AT CARPAL TUNNEL performed by Levi Peralta MD at OR [facility] CARPAL TUNNEL SURGERY Right 02/23/2015 NEUROPLASTY MEDIAN NERVE AT CARPAL TUNNEL performed by Levi Peralta MD at OR [facility] COLONOSCOPY, DIAGNOSTIC (RECTUM) 05/23/2011 COLONOSCOPY FLEXIBLE PROXIMAL DIAGNOSTIC performed by BELINDA JAMES at ENDOSCOPY [facility] COLONOSCOPY, DIAGNOSTIC (RECTUM) 12/08/2013 COLONOSCOPY FLEXIBLE PROXIMAL DIAGNOSTIC performed by Gigi Haro MD at ENDOSCOPY [facility] COLONOSCOPY, DIAGNOSTIC (RECTUM) 07/02/2018 poor prep, repeat / [facility] COLONOSCOPY, DIAGNOSTIC (RECTUM) 07/03/2018 adenomatous polyps, diverticulosis, repeat 3 yrs/[facility] COLONOSCOPY, DIAGNOSTIC (RECTUM) 09/13/2022 benign adenomatous polyps, diverticulosis, repeat 3 yrs / COLONOSCOPY FLEXIBLE PROXIMAL DIAGNOSTIC performed by Rajinder Wheeler MD at ENDOSCOPY [facility] CORONARY ANGIOGRAPHY W/RIGHT+LEFT CATH 10/10/2010 CORONARY ANGIOGRAPHY W/RIGHT+LEFT CATH performed by MARNI SULLIVAN at CARDIAC LABS [facility] CV ECHO, ALMA INTRAOPERATIVE N/A 06/21/2023 ECHOCARDIOGRAPHY, TRANSESOPHAGEAL; INCLUDING PROBE PLACEMENT, IMAGE ACQUISITION, INTERPRETATION ANDREPORT performed by [facility] at [facility] EGD, FLEXIBLE, DIAGNOSTIC 07/02/2018 erosive gastropathy, repeat 2 yrs / [facility] EGD, FLEXIBLE, DIAGNOSTIC 04/15/2021 normal, repeat 3 yrs / ESOPHAGOGASTRODUODENOSCOPY (EGD), FLEXIBLE, TRANSORAL, DIAGNOSTIC performed by Rajinder Wheeler MD at ENDOSCOPY [facility] EGD, FLEXIBLE, DIAGNOSTIC 06/08/2023 ESOPHAGOGASTRODUODENOSCOPY (EGD), FLEXIBLE, TRANSORAL, DIAGNOSTIC performed by Sushant Alicea MD at [facility] ESOPHAGOSCOPY, FLEXIBLE, DIAGNOSTIC N/A 06/06/2023 ESOPHAGOSCOPY DIAGNOSTIC performed by Sushant Alicea MD at OR [facility] EXC BREAST LESION RADMARK 01/30/2008 EXCISION OF BREAST LESION RADIOLOGICAL MARKER performed by PAUL PEDRO at [facility] EXPLORATION OF ABDOMEN N/A 06/06/2023 EXPLORATORY LAPAROTOMY performed by Sushant Alicea MD at OR [facility] EXPLORATION OF ABDOMEN N/A 06/08/2023 EXPLORATORY LAPAROTOMY performed by Sushant Alicea MD at [facility] FOOT/TOE SURGERY NEC Foot/Toes Surgery Proc Unlisted HYSTEROSCOPY W/BIOPSY AND/OR POLYPECTOMY W/WO D&C 01/30/2008 HYSTEROSCOPY WITH BIOPSY performed by ABIEL CHOI JR at OR [facility] HYSTEROSCOPY W/BIOPSY AND/OR POLYPECTOMY W/WO D&C 06/21/2011 HYSTEROSCOPY WITH BIOPSY AND/OR POLYPECTOMY performed by ABIEL CHOI JR at OR [facility] IDENTIFY SENTINEL NODE, RADIOACTIVE TRACER 02/24/2008 INJECTION PROCEDURE FOR IDENTIFICATION SENTINEL NODE performed by PAUL PEDRO at OR [facility] IMPLANT MESH W/ ABD HERNIA REPR/DEBRIDE N/A 10/10/2019 IMPLANTATION MESH WITH INCISIONAL/VENTRAL HERNIA performed by Gigi Hendrickson MD at OR [facility] INFORMATION Left *MRI* Left breast senior staff consultant model#[id number] thru [id number] Contains Magnet INJECTION OF EYE DRUG Right 02/28/2021 # 1 Avastin OD, INJECTION OF EYE DRUG Right 04/12/2021 # 2 Avastin OD, INJECTION OF EYE DRUG Right 05/25/2021 # 3 Avastin OD, INSERT PER EUGENE ACC DEV;5/OLDER 03/12/2008 INSERT PICC WITH PORT 5 YEARS AND OLDER performed by PAUL PEDRO at OR [facility] LAPAROSCOPY DIAGNOSTIC N/A 06/06/2023 LAPAROSCOPY DIAGNOSTIC performed by Sushant Alicea MD at OR [facility] MASTECTOMY, SIMPLE, COMPLETE 02/24/2008 MASTECTOMY SIMPLE COMPLETE performed by PAUL PEDRO at OR [facility] NEG PRESSURE WOUND THERAPY DME >50 SQ CM N/A 06/06/2023 NEGATIVE PRESSURE WOUND THERAPY GREATER THAN 50SQ CM performed by Sushant Alicea MD at OR [facility] OTHER ACT 112 Signed, 12/07/2020 OTHER Avastin OD consent signed, 02/28/2021-02/28/2022 PARTIAL COLECTOMY W/ANASTOMOSIS 2005 Colectomy Partial REMOVAL OF APPENDIX Appendectomy REMOVAL OF BREAST IMPLANT 07/11/2010 REMOVAL OF INTACT MAMMARY IMPLANT performed by DEON BARBOSA II at OR [facility] REMOVAL OF OVARY/OVIDUCT(S) 08/25/2011 SALPINGO OOPHORECTOMY performed by ABIEL CHOI JR at OR [facility] REMOVE ARMPIT LYMPH NODES, COMPLETE 02/24/2008 AXILLARY LYMPHADENECTOMY COMPLETE performed by PAUL PEDRO at OR [facility] REMOVE CATARACT, INSERT LENS PROSTH Right 09/15/2020 EXTRACAPSULAR CATARACT REMOVAL WITH INTRAOCULAR LENS performed by Cece Cook MD at OR [facility] REPAIR INITIAL INCISIONAL OR VENTRAL HERNIA; REDUCIBLE N/A 10/10/2019 REPAIR INITIAL INCISIONAL /VENTRAL HERNIA REDUCIBLE performed by Gigi Hendrickson MD at [facility] REPLACE AORTIC VALVE, PERCUTANEOUS FEMORAL Bilateral 11/06/2017 REPLACE AORTIC VALVE, PERCUTANEOUS FEMORAL performed by Dawood Laird MD at CARDIAC LABS [facility] REPLACE AORTIC VALVE, PERCUTANEOUS FEMORAL 11/06/2017 REPLACE AORTIC VALVE, PERCUTANEOUS FEMORAL performed by Belinda Liang MD at CARDIAC LABS [facility] REPLACEMENT AORTIC VALVE, BYPASS WITH PROSTHETIC VALVE 11/01/2010 REPLACEMENT AORTIC VALVE performed by RITA MEEKS at [facility] REVISION OF ULNAR NERVE AT ELBOW Right 02/23/2015 NEUROPLASTY AND OR TRANSPOSITION ULNAR NERVE ELBOW performed by Levi Peralta MD at [facility] SIGMOIDOSCOPY, DIAGNOSTIC N/A 06/08/2023 SIGMOIDOSCOPY FLEXIBLE DIAGNOSTIC performed by Sushant Alicea MD at [facility] TOTAL ABD HYSTERECTOMY W/WO REMOVAL OF TUBE(S) 08/25/2011 TOTAL ABDOMINAL HYSTERECTOMY WITH OR WITHOUT TUBES AND OVARIES performed by ABIEL CHOI JR [facility] Review of patient's allergies indicates: Allergen Reactions Adhesive Tape Can tolerate band-aids Glycerin Other (Please comment) Topical agents with glycein-burning & itching Lactose Dairy - gas Lisinopril Cough Monosodium Glutamate Edema Other Hands and feet Pcn [Penicillins] Rash Current Outpatient Medications Medication Sig Dispense Refill aspirin enteric coated 81 MG TBEC Take 1 Tab by mouth daily. 90 Tab 11 Multiple Vitamins-Minerals ([employer] SPECTRAVITE ADVANCED) TABS Take 1 Tab by mouth daily. AZO Cranberry 250-30 MG Oral Tablet Take 2 Tablets by mouth in the morning and 2 Tablets at noon and 2 Tablets before bedtime. BD Glucose 5 GM Oral Tablet Chewable (Glucose) 3 every 15 minutes until glucose is > 100 mg/dL for hypoglycemia E11.9 100 Tab 3 OneTouch Verio w/Device Kit Use up to 4 times a day E11.9 1 Kit 0 SavingStarTouch Delica Lancets 33G TEST 4 TIMES DAILY DIRECTED, E11.9 400 Each 3 Melatonin 10 MG Oral Capsule Take 1 Capsule by mouth at bedtime. Magnesium Oxide 400 (240 Mg) MG Oral Tablet (Mag-Ox) One tablet by mouth daily in the morning 90 Tablet 3 Omnipod 5 G6 Pod (Gen 5) Use as directed. Use 1 pod every 3 days 30 Each 3 Omnipod 5 G6 Intro (Gen 5) Kit Use as directed. Use to delivery insulin via insulin pump 1 Kit 0 Dexcom G6 Sensor Use as directed. Use 1 sensor every 10 days E 11.9 9 Each 3 Dexcom G6 Transmitter Use as directed. Use 1 transmitter every 90 days E 11.9 1 Each 3 Clopidogrel Bisulfate 75 MG Oral Tablet (pLAVix) TAKE 1 TABLET (75 MG) BY MOUTH IN THE MORNING 90 Tablet 2 Levothyroxine Sodium 75 MCG Oral Tablet (Levoxyl) TAKE 1 TAB BY MOUTH DAILY FIRST THING IN AM, AT LEAST 30 MIN PRIOR TO BREAKFAST OR OTHER MEDICATIONS 90 Tablet 2 OneTouch Verio In Vitro Strip (Glucose Blood) Use up to 4 times a day E11.9 100 Strip 11 Potassium Chloride Shannon ER 10 MEQ Oral Tablet Extended Release Take 1 Tablet by mouth in the morning and 1 Tablet before bedtime. 180 Tablet 3 NovoLOG FlexPen 100 UNIT/ML Subcutaneous Solution Pen-injector (insulin aspart) Injected under the skin BEFORE MEALS, 3 times per day: 2 units per 50 when glucose is over 200 units. TDD: 50. ICD10: E11.9. 15 mL 2 Tresiba FlexTouch 200 UNIT/ML Subcutaneous Solution Pen-injector (Insulin Degludec) Inject 30 Unitsunder the skin at bedtime. 6 mL 2 BD Pen Needle Short U/F 31G X 8 MM Use with insulin 4 times daily 400 Each 3 Gaviscon 80-14.2 MG Oral Tablet Chewable (Alum Hydroxide-Mag Trisilicate) Take by mouth as needed. Atorvastatin Calcium 40 MG Oral Tablet (Lipitor) TAKE 1 TABLET BY MOUTH DAILY. TO PREVENT HEART ATTACK/STROKE, PROTECT KIDNEY, AND CHOLESTEROL 90 Tablet 1 Meclizine HCl 25 MG Oral Tablet (Antivert) TAKE 2 TABLETS BY MOUTH TWICE A DAY 360 Tablet 3 metFORMIN HCl 1000 MG Oral Tablet (Glucophage) Take 1 Tablet by mouth 2 times a day with morning and evening meals. 180 Tablet 3 Torsemide 10 MG Oral Tablet (Demadex) Take 1 Tablet by mouth in the morning. Insulin Aspart 100 UNIT/ML Injection Solution (NovoLOG) Use up to 50 units per day in Omnipod. 5 Each 3 BD Insulin Syringe 25G X 1" 1 ML (Insulin Syringe-Needle U-100) Use daily with omnipod as directed DX E11.9 100 Each 5 Curity Alcohol Swabs Pad Use as directed as needed 200 Each 5 Metoprolol Tartrate 25 MG Oral Tablet (Lopressor) Take 1 Tablet by mouth in the morning and 1 Tablet before bedtime. 60 Tablet 5 metOLazone 2.5 MG Oral Tablet (Zaroxolyn) One tablet one morning twice per week (Sunday and Sunday), 30 minutes prior to torsemide dose 30 Tablet 3 Gabapentin 100 MG Oral Capsule (Neurontin) Take 1 Capsule by mouth in the morning and 1 Capsule at noon and 1 Capsule before bedtime. 90 Capsule 0 Ammonium Lactate 12 % External Lotion (Lac-Hydrin) Apply to both feet once daily. 400 g 3 Nystatin [id number] UNIT/GM External Powder (Nystop) Apply topically to affected area 3 times a day. Apply to affected areas 60 g 1 Aquaphor External Ointment Apply topically to affected area as needed for Dry Skin. Apply to face 420 g 0 traZODone HCl 100 MG Oral Tablet (Desyrel) Take 1 Tablet by mouth at bedtime. Fluticasone Propionate 50 MCG/ACT Nasal Suspension (Flonase) Administer 2 Sprays into each nostril in the morning. 16 g 3 Venelex External Ointment Apply topically to affected area 2 times a day. (Patient not taking: Reported on 08/03/2023) Ozempic (2 MG/DOSE) 8 MG/3ML Subcutaneous Solution Pen-injector (Semaglutide (2 MG/DOSE)) Inject 2 mg under the skin once a week. 9 mL 3 No current facility-administered medications for this visit. OBJECTIVE/PHYSICAL EXAMINATION: BP 118/64 | Pulse 90 | Wt 72.6 kg (160 lb) | LMP 04/07/2011 | SpO2 95% | BMI 32.32 kg/m | BSA 1.74 m Wt Readings from Last 3 Encounters: 10/15/23 72.6 kg (160 lb) 09/06/23 70.3 kg (155 lb) 07/31/23 74.4 kg (164 lb) General: no acute distress and stated age, chronically ill in appearance, no acute distress Eyes: conjunctiva are pink and non-injected, sclera clear Neck: normal jugular venous pulse, no hepatojugular reflux Chest: normal shape and normal respiratory effort Lungs: clear to auscultation and percussion Cardiac Exam: - regular heart sounds, 1/6 systolic murmur Abdomen: abdomen soft, non-tender, no abnormal masses and no hepatosplenomegaly Musculoskeletal: no gait disturbance, no weakness Extremities: trace bilateral lower extremity in pedal edema B/L. Neuro: grossly normal exam Psych: appropriate affect and insight. Data: EKG performed today and reviewed personally: Normal sinus rhythm Anterior infarct , age undetermined Abnormal ECG When compared with ECG of 15-JUN-2023 15:03, Nonspecific T wave abnormality no longer evident in Inferior leads T wave inversion no longer evident in Lateral leads ALMA report reviewed dated May 2023 at [facility]: Interpretation Summary The examination is adequate to evaluate the referral indication. There is no intracardiac mass, vegetation or thrombus. The anterior mitral leaflet (A2 scallop) is diffusely thickened. This is not typical for bacterial endocarditis. Non bacterial thrombotic endocarditis is a possibility in view of systemic embolism and splenic infarct. The patient is status post TAVR with Bing type prosthetic valve. Aortic valve prosthesis stenosisis absent. Significant aortic valve prosthesis regurgitation is absent. The qualitative LV ejection fraction is 55-59% (normal). No LV segmental wall motion abnormalities. The right ventricular cavity size is normal (basal dimension < 4.2 cm RV apical 4 chamber view). The right ventricular systolic function is qualitatively normal. Echo report reviewed dated January 08, 2023: Interpretation Summary The qualitative LV ejection fraction is >70% (hyperdynamic). The left ventricular wall motion is normal. The LV wall thickness is mildly increased (concentric). The patient is status post TAVR with Bing type prosthetic valve. The aortic valve prosthesis systolic gradients are normal for this type prosthesis. Significant aortic valve prosthesis regurgitation is absent. The examination is limited quality but adequate for evaluation of the referral indication. Latest Reference Range & Units 04/09/23 13:44 Triglycerides <=174 mg/dL 212 (H) Cholesterol <200 mg/dL 113 Non-HDL Cholesterol <=159 mg/dL 77 HDL Cholesterol >49 mg/dL 36 (L) LDL Cholesterol (Direct Measure) <=129 mg/dL 52 (H): Data is abnormally high (L): Data is abnormally low ASSESSMENT: 62 year old female Chronic HF with preserved EF S/P TAVR (transcatheter aortic valve replacement) S/P drug eluting coronary stent placement Sinus tachycardia HTN, goal below 140/90 Pneumoperitoneum, unknown etiology Possible splenic infarct without evidence of vegetation or thrombus detected GI Bleed/anemia - post exploratory lap PLAN: Diuretics and antihypertensives were reduced/discontinued during admission 3 months ago. She appears euvolemic currently. Continue torsemide. Consider resuming spironolactone. Recheck labs. She never had GI follow up. Recheck CBC. If remains low - would refer to GI for f/u of hospitalization/anemia/ulceration Recommend 7 day ZIO monitor to assess and R/O afib given splenic infarct. Continue metoprolol for now. This was also reduced to 25 mg BID due to hypotension. Low threshold to increase dose if needed. Await monitor results. Continue plavix for history of LM stent. The patient is to continue all current medications as listed above. No changes were made at today'svisit. I spent a total of 45 minutes on the date of service in preparation, delivery, and documentation ofthe care provided to Jovita Rose excluding any time spent in the performance of separately billed services. The patient agrees to the above plan and will call with additional questions or concerns. ER with all emergencies advised. Follow-up: Return in about 6 months (around 04/14/2024). | Check-out note: Blood work today 7 day ZIO done today 6 month f/u with Dr. Flavio Teague PA-C Department of Cardiology This chart was completed in part utilizing [employer] Speech Voice Recognition Software. Grammatical errors, random word insertions, prounoun errors, and incomplete sentences are an occasional consequence of this system due to software limitations, ambient noise, and hardware issues. Any formal questions or concerns about the content, text, or information contained within the body of this dictation should be directly addressed to the provider for clarification. documented in this encounter Procedure Notes * Brandon Winston DO - 10/15/2023 11:27 AM ESTAssociated Order(s): EKG REASON FOR STUDY: tachycardia CONCLUSIONS: Normal sinus rhythm Anterior infarct , age undetermined Abnormal ECG When compared with ECG of 15-JUN-2023 15:03, Nonspecific T wave abnormality no longer evident in Inferior leads T wave inversion no longer evident in Lateral leads Ventricular Rate: 92 Atrial Rate: 92 KS Interval: 198 QRS Duration: 90 QT/QTc: 396/489 ms P-R-T [place]: 64 : -22 : 84 degrees documented in this encounter Nursing Notes * Do Ricardo CMA - 10/15/2023 10:46 AM EST Examination Room: 1 Name: Jovita Rose Date of : (1960) Reason for Visit: 6m Interim Hospitalization(s): 2 months ago Problems/Concerns: denied Chest Pain/SOB: denied chest pain, but will get some SOB on exertion. My [facility] is a way you can talk to your provider online through e-mail. Would you like to sign up? I can activate it for you? ALREADY ACTIVE Patient was instructed to not get up on the exam table until directed and assisted by their provider; patient is to remain seated in the chair/ wheelchair/ exam table for fall prevention and safety reasons. Patient is aware to have assistance to step down off exam table with personnel. Patient voiced full comprehension of instructions. documented in this encounter Plan of Treatment Upcoming Encounters Date Type Department Care Team (Latest Contact Info) Description 10/15/2023 4:00 PM EST [facility] [address] [address] Jaycee Sorto, RN [address] [address] 10/29/2023 11:30 AM EST [facility] [address] [facility] [address] [place] [address] Pharmacist1, [facility] [address] [facility] [place] [address] 10/30/2023 9:30 AM EST Telemedicine [place] [address] [place] [facility] [place] [address] Anjali Alanis, [facility] [address] [place] [facility] [place] [address] 11/21/2023 9:20 AM EST Office Visit Family Practice [facility] [address] [place] [address] Deon Rausch MD [address] [place] [address] 12/05/2023 10:39 AM EDT Hospital Encounter [facility], Operating Room [facility] [address] [place] [id number] Ramsey Burnett, DO [address] [address] 12/05/2023 10:39 AM EDT - 12/05/2023 11:32 AM EDT Surgery [facility], Operating Room [facility] [address] [place] [id number] Ramsey Burnett, DO [address] [address] LEFT EXTRACAPSULAR CATARACT REMOVAL COMPLEX WITH IOL 12/06/2023 8:45 AM EDT Office Visit Ophthalmology, [facility] [address] [facility] [place] [address] Ramsey Burnett, DO [address] [place] [address] 12/13/2023 2:15 PM EDT Office Visit Ophthalmology, [facility] [address] [place] [address] Ramsey Burnett, DO [address] [address] 01/10/2024 2:00 PM EDT Office Visit Ophthalmology, [facility] [address] [facility] [place] [address] Ramsey Burnett, DO [address] [place] [address] 02/04/2024 10:20 AM EDT Office Visit Family Practice [facility] [address] [facility] [place] [address] Deon Rausch MD [address] [facility] [place] [address] Pending Results Name Type Priority Associated Diagnoses Date /Time TSH WITH FREE T4 IF INDICATED Lab Routine S/P TAVR (transcatheter aortic valve replacement) HTN, goal below 130/80 Chronic heart failure with preserved ejection fraction (HCC) HTN, goal below 140/90 History of GI bleed Hypomagnesemia Heart palpitations 10/15/2023 11:56 AM EST MAGNESIUM Lab Routine S/P TAVR (transcatheter aortic valve replacement) HTN, goal below 130/80 Chronic heart failure with preserved ejection fraction (HCC) HTN, goal below 140/90 History of GI bleed Hypomagnesemia Heart palpitations 10/15/2023 11:56 AM EST Scheduled Orders Name Type Priority Associated Diagnoses Orde r Schedule TSH WITH FREE T4 IF INDICATED Lab Routine S/P TAVR (transcatheter aortic valve replacement) HTN, goal below 130/80 Chronic heart failure with preserved ejection fraction (HCC) HTN, goal below 140/90 History of GI bleed Hypomagnesemia Heart palpitations Expected: 10/15/2023, Expires: 10/15/2024 MAGNESIUM Lab Routine S/P TAVR (transcatheter aortic valve replacement) HTN, goal below 130/80 Chronic heart failure with preserved ejection fraction (HCC) HTN, goal below 140/90 History of GI bleed Hypomagnesemia Heart palpitations Expected: 10/15/2023, Expires: 10/15/2024 EXTERNAL EKG 2 TO 7 DAYS Holter Routine S/P TAVR (transcatheter aortic valve replacement) HTN, goal below 130/80 Chronic heart failure with preserved ejection fraction (HCC) HTN, goal below 140/90 History of GI bleed Hypomagnesemia Heart palpitations Palpitations Splenic infarct Expected: 10/15/2023 (Approximate), Expires: 10/15/2024 Scheduled Procedures Name Priority Associated Diagnoses Date/Ti [...] Additional history exists CKD PHOS USE SMARTSET 44335 06/18/202405/26, 06/16/2023, 06/15/2023, Additional history exists Diabetic Eye Exam 09/13/2024 09/13/2023, , 09/13/2023, Additional history exists B-12 09/18/2024 09/18/2023, 08/24, 2020, Additional history exists CKD HGB USE SMARTSET 20591 10/15/202410/15, 07/31/2023, 07/31/2023, Additional history exists COLONOSCOPY-EVERY [...] this encounter Medical Devices Implanted Type Area Waterproof Bag Sewer Device Identifier Shelf Expiration Date Model / Serial / Lot Cath Roselia Single Lumen - [id number] Implanted:Qty : 1 on 03/12/2008 at OR [facility] Left: Chest [employer] *DO NOT USE* 07/25/2012 [id number] / / [id number] Valve Tarsha Aortic [id number] - [id number] Implanted:Qty : 1 on 11/01/2010 at OR [facility] N/A: Heart [employer] 05/20/2012 [id number] / / [id number] Mesh Soft [id number] - [id number] Implanted:Qty : 1 on 10/10/2019 by Gigi Hendrickson MD at OR [facility] N/A: Abdomen CR BARD : DAVOL [id number] 05/21/2024 [id number] / / [id number] Lens 22.5 Sn60wf - [id number] - [id number] Implanted:Qty : 1 on 09/15/2020 by Macario PanvinCece ernandez MD at OR [facility] Right: Eye IVA : SURGICAL [id number] 05/13/2025 SN60 WF.225 / [id number] documented as of this encounter Procedures Procedure Name Priority Date/Time Associated Diagnosis Comments KS ECG ROUTINE ECG W/LEAST 12 LDS W/I&R Routine 10/15/2023 11:27 AM EST S/P TAVR (transcatheter aortic valve replacement) HTN, goal below 130/80 documented in this encounter Results * CBC (10/15/2023 11:56 AM EST) WBC 10.38 4.00 - 10.80 K/uL 10/15/2023 12:10 PM EST LAB[facility]ORY [facility] 57-10 RBC 4.83 3.85 - 5.15 M/uL 10/15/2023 12:10 PM EST [facility] 57-10 HGB 12.3 12.0 - 15.3 g/dL 10/15/2023 12:10 PM EST [facility] [place] 57-10 HCT 38.3 36.0 - 45.2 % 10/15/2023 12:10 PM EST [facility] [place] 57-10 MCV 79.3 81.5 - 97.5 fL 10/15/2023 12:10 PM EST [facility] [place] 57-10 MCH 25.5 27.0 - 34.0 pg 10/15/2023 12:10 PM EST [facility] [place] 57-10 MCHC 32.1 32.0 - 36.0 g/dL 10/15/2023 12:10 PM EST [facility] [place] 57-10 RDW 16.0 11.5 - 15.5 % 10/15/2023 12:10 PM EST [facility] [place] 57-10 PLT 175 140 - 400 K/uL 10/15/2023 12:10 PM EST [facility] [place] 57-10 MPV 10.9 6.6 - 11.1 fL 10/15/2023 12:10 PM EST [facility] [place] 57-10 Blood Venous blood specimen / Unknown Venipuncture / Unknown 10/15/2023 11:56 AM EST 10/15/2023 11:56 AM EST Feli Teague PA-C LAB BLOOD [facility] [address] [address] * (ABNORMAL) COMPREHENSIVE METABOLIC PANEL (10/15/2023 11:56 AM EST) BUN 27(H) 6 - 20 mg/dL 10/15/2023 1:34 PM EST [facility] 57-10 Creatinine 1.3(H) 0.5 - 1.0 mg/dL 10/15/2023 1:34 PM EST [facility] 57-10 Estimated Glomerular Filtration Rate 44(L) >=60 mL/min 10/15/2023 1:34 PM EST [facility] 57-10 Comment:eGFR is calculated b ased on the CKD-EPI 2020 equation Sodium 131(L) 135 - 146 mmol/L 10/15/2023 1:34 PM EST [facility] 57-10 Potassium 3.6 3.5 - 5.1 mmol/L 10/15/2023 1:34 PM EST [facility] 57-10 Chloride 86(L) 98 - 107 mmol/L 10/15/2023 1:34 PM EST [facility] 57-10 CO2 26 22 - 32 mmol/L 10/15/2023 1:34 PM EST [facility] 57-10 Anion Gap 19(H) 7 - 15 mmol/L 10/15/2023 1:34 PM EST [facility] 57-10 Glucose 292(H) 70 - 120 mg/dL 10/15/2023 1:34 PM EST [facility] 57-10 Albumin 4.2 3.8 - 5.0 g/dL 10/15/2023 1:34 PM EST [facility] 57-10 AST 18 10 - 35 U/L 10/15/2023 1:34 PM EST [facility] 57-10 Alkaline Phosphatase 95 35 - 130 U/L 10/15/2023 1:34 PM EST [facility] 57-10 Bilirubin, Total 0.8 <=1.2 mg/dL 10/15/2023 1:34 PM EST [facility] [place] 57-10 Calcium 9.8 8.4 - 10.2 mg/dL 10/15/2023 1:34 PM EST [facility] [place] 57-10 Protein 7.1 6.0 - 8.3 g/dL 10/15/2023 1:34 PM EST [facility] 57-10 ALT 11 10 - 35 U/L 10/15/2023 1:34 PM EST [facility] 57-10 Blood Venous blood specimen / Unknown Venipuncture / Unknown 10/15/2023 11:56 AM EST 10/15/2023 11:56 AM EST Feli Teague PA-C LAB BLOOD [facility] Performing Organization Address [facility] Co de Phone Number LAB[facility]ORY [place] [address] [place] [phone] * EKG (10/15/2023 11:27 AM EST) 10/15/2023 11:2 7 AM EST Narrative Procedure Note Brandon Winston DO - 10/15/2023 11:27 AM EST REASON FOR STUDY: tachycardia CONCLUSIONS: Normal sinus rhythm Anterior infarct , age undetermined Abnormal ECG When compared with ECG of 15-JUN-2023 15:03, Nonspecific T wave abnormality no longer evident in Inferior leads T wave inversion no longer evident in Lateral leads Ventricular Rate: 92 Atrial Rate: 92 [place] Interval: 198 QRS Duration: 90 QT/QTc: 396/489 ms P-R-T [place]: 64 : -22 : 84 degrees Feli Teague PA-C EKG Performing Organization Address City/[facility]/ZIP Co de Phone Number [facility] documented in this encounter Visit Diagnoses Diagnosis S/P TAVR (transcatheter aortic valve replacement)- Primary Heart valve replaced by other means HTN, goal below 130/80 Unspecified essential hypertension Chronic heart failure with preserved ejection fraction (HCC) HTN, goal below 140/90 Unspecified essential hypertension History of GI bleed Personal history of other diseases of digestive system Hypomagnesemia Disorders of magnesium metabolism Heart palpitations Palpitations Palpitations Splenic infarct Other diseases of spleen Cataract Unspecified cataract documented in this encounter [...] the patient have Health Care Power of Career Representative? 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
--- OUTSIDE RECORDS SUMMARY | 2023-10-27 12:08 | External Medical Summary | Summary of Care ---
Author Name Unknown Organization [facility] Address [address] [place] [address] Phone [phone] Care Team Providers Care Garnett Machine Operator Helper Name Role Phone Gregory Rausch MD Primary Care Provider [phone] Reason for Visit * Reason Onset Date Comments Medication Refill 10/18/2023 Encounter Details Date Type Department Care Team (Late st Contact Info) Description 10/18/2023 Refill Pharmacy, [facility] [address] [place] [address] Neeraj Matthew, [facility] [address] [place] [address] Type 2 diabetes mellitus with hemoglobin A1c goal of less than 7.0% ([facility]) Allergies Active Allergy Reactions Criticality Noted Date Comments Adhesive Tape 07/02/2017 Can tolerate band-aids Glycerin Other (Please comment) 03/12/2008 Topical agents with glycein-burning & itching Lactose 12/09/2014 Dairy - gas Lisinopril Cough 01/21/2010 Monosodium Glutamate Edema Other 03/12/2008 Hands and feet Penicillins Rash 11/14/2007 documented as of this encounter (statuses as of 10/18/2023) Medications Medication Sig Dispensed Refills Start Date End Date Status aspirin enteric coated 81 MG TBECIndications:Aorti c valve disorder Take 1 Tab by mouth daily. 90 Tab 11 9 Active Multiple Vitamins-Minerals ([facility] SPECTRAVITE ADVANCED) TABS [...] mg/dL for hypoglycemia E11.9 100 Tab 3 1 Active OneTouch Verio w/Device Kit Use up to 4 times a day E11.9 1 Kit 0 2 Active OneTouch Delica Lancets 33G TEST 4 TIMES DAILY DIRECTED, E11.9 400 Each 3 2 Active Melatonin 10 MG Oral CapsuleIndications:sl eep Take 1 Capsule by mouth at bedtime. 0 Active Magnesium Oxide 400 (240 Mg) MG Oral Tablet (Mag-Ox) One tablet by mouth daily in the morning 90 Tablet 3 3 Active Omnipod 5 G6 Pod (Gen 5) Use as directed. Use 1 pod every 3 days 30 Each 3 3 Active Omnipod 5 G6 Intro (Gen 5) Kit Use as directed. Use to delivery insulin via insulin pump 1 Kit 0 3 Active Fluticasone Propionate 50 MCG/ACT Nasal Suspension (Flonase)Indications: Dizziness Administer 2 Sprays into each nostril in the morning. 16 g 3 3 Active Clopidogrel Bisulfate 75 MG Oral Tablet (pLAVix) TAKE 1 TABLET (75 MG) BY MOUTH IN THE MORNING 90 Tablet 2 3 Active Levothyroxine Sodium 75 MCG Oral Tablet (Levoxyl)Indications: Hypothyroidism TAKE 1 TAB BY MOUTH DAILY FIRST THING IN AM, AT LEAST 30 MIN PRIOR TO BREAKFAST OR OTHER MEDICATIONS 90 Tablet 2 3 Active OneTouch Verio In Vitro Strip (Glucose Blood) Use up to 4 times a day E11.9 100 Strip 11 3 Active Potassium Chloride Shannon ER 10 MEQ Oral Tablet Extended ReleaseIndications:Ac jules on chronic heart failure with preserved ejection fraction (HFpEF) (HCC) Take 1 Tablet by mouth in the morning and 1 Tablet before bedtime. 180 Tablet 3 3 Active Venelex External Ointment Apply topically to affected area 2 times a day. 0 3 Active NovoLOG FlexPen 100 UNIT/ML Subcutaneous Solution Pen-injector (insulin aspart) Injected under the skin BEFORE MEALS, 3 times per day: 2 units per 50 when glucose is over 200 units. TDD: 50. ICD10: E11.9. 15 mL 2 3 Active Tresiba FlexTouch 200 UNIT/ML Subcutaneous Solution Pen-injector (Insulin Degludec)Indications: Type 2 diabetes mellitus with hemoglobin A1c goal of less than 7.0% ([facility]),Type 2 diabetes mellitus with stage 3a chronic kidney disease, with long-term current use of insulin ([facility]) Inject 30 Units under the skin at bedtime. 6 mL 2 3 Active BD Pen Needle Short U/F 31G X 8 MMIndications:Type 2 diabetes mellitus with hemoglobin A1c goal of less than 7.0% ([facility]),Type 2 diabetes mellitus with stage 3a chronic kidney disease, with long-term current use of insulin ([facility]) Use with insulin 4 times daily 400 Each 3 3 Active Gaviscon 80-14.2 MG Oral Tablet Chewable (Alum Hydroxide-Mag Trisilicate) Take by mouth as needed. 0 Active Atorvastatin Calcium 40 MG Oral Tablet (Lipitor)Indications: Heart failure, systolic, due to idiopathic cardiomyopathy ([facility]),S/P aortic valve replacement,HTN, goal below 140/80,Dyslipidemia, goal LDL below 70 TAKE 1 TABLET BY MOUTH DAILY. TO PREVENT HEART ATTACK/STROKE, PROTECT KIDNEY, AND CHOLESTEROL 90 Tablet 1 3 Active Meclizine HCl 25 MG Oral Tablet (Antivert)Indications :Muscle tension headache TAKE 2 TABLETS BY MOUTH TWICE A DAY 360 Tablet 3 3 Active metFORMIN HCl 1000 MG Oral Tablet (Glucophage) Take 1 Tablet by mouth 2 times a day with morning and evening meals. 180 Tablet 3 3 Active Torsemide 10 MG Oral Tablet (Demadex) Take 1 Tablet by mouth in the morning. 0 Active Insulin Aspart 100 UNIT/ML Injection Solution (NovoLOG)Indications: Type 2 diabetes mellitus with hemoglobin A1c goal of less than 7.0% ([facility]) Use up to 50 units per day in Omnipod. 5 Each 3 3 Active BD Insulin Syringe 25G X 1" 1 ML (Insulin Syringe-Needle U-100) Use daily with omnipod as directed DX E11.9 100 Each 5 3 Active Curity Alcohol Swabs Pad Use as directed as needed 200 Each 5 3 Active Metoprolol Tartrate 25 MG Oral Tablet (Lopressor) Take 1 Tablet by mouth in the morning and 1 Tablet before bedtime. 60 Tablet 5 4 Active metOLazone 2.5 MG Oral Tablet (Zaroxolyn)Indication s:Acute on chronic heart failure with preserved ejection fraction (HFpEF) ([facility]) One tablet one morning twice per week (Sunday and Sunday), 30 minutes prior to torsemide dose 30 Tablet 3 4 Active Gabapentin 100 MG Oral Capsule (Neurontin)Indication s:Polyneuropathy associated with underlying disease ([facility]) Take 1 Capsule by mouth in the morning and 1 Capsule at noon and 1 Capsule before bedtime. 90 Capsule 0 4 Active Ammonium Lactate 12 % External Lotion (Lac-Hydrin) Apply to both feet once daily. 400 g 3 4 Active Nystatin 943488 UNIT/GM External Powder (Nystop)Indications:C andidal intertrigo Apply topically to affected area 3 times a day. Apply to affected areas 60 g 1 4 Active Aquaphor External Ointment Apply topically to affected area as needed for Dry Skin. Apply to face 420 g 0 4 Active Ozempic (2 MG/DOSE) 8 MG/3ML Subcutaneous Solution Pen-injector (Semaglutide (2 MG/DOSE))Indications: Type 2 diabetes mellitus with hemoglobin A1c goal of less than 7.0% ([facility]),Type 2 diabetes mellitus with diabetic mononeuropathy, with long-term current use of insulin ([facility]),Type 2 diabetes mellitus with both eyes affected by mild nonproliferative retinopathy and macular edema, with long-term current use of insulin ([facility]),Type 2 diabetes mellitus with stage 3a chronic kidney disease, with long-term current use of insulin ([facility]) Inject 2 mg under the skin once a week. 9 mL 3 4 Active traZODone HCl 100 MG Oral Tablet (Desyrel) Take 1 Tablet by mouth at bedtime. 0 Active Dexcom G6 TransmitterIndication s:Type 2 diabetes mellitus with hemoglobin A1c goal of less than 7.0% (HCC) Use as directed. Use 1 transmitter every 90 days E 11.9 1 Each 3 4 Active Dexcom G6 SensorIndications:Typ e 2 diabetes mellitus with hemoglobin A1c goal of less than 7.0% (HCC) Use as directed. Use 1 sensor every 10 days E 11.9 9 Each 3 4 Active Dexcom G6 SensorIndications:Typ e 2 diabetes mellitus with hemoglobin A1c goal of less than 7.0% (HCC) Use as directed. Use 1 sensor every 10 days E 11.9 9 Each 3 3 10/18/19 24 Discontinu ed(Refill) Dexcom G6 TransmitterIndication s:Type 2 diabetes mellitus with hemoglobin A1c goal of less than 7.0% (HCC) Use as directed. Use 1 transmitter every 90 days E 11.9 1 Each 3 3 10/18/19 24 Discontinu ed(Refill) documented as of this encounter (statuses as of 10/18/2023) Active Problems Problem Noted Date Diagnosed Date [...] eye 09/28/2020 Coronary artery disease invo lving chitimacha coronary artery of chitimacha heart without angina pectoris 12/16/2019 Last Assessment [...] as of this encounter (statuses as of 10/18/2023) Resolved Problems Problem Noted Date Diagnosed Date [...] 12/21/2016 Diabetes mellitus 01/05/2014 12/21/2016 LEYVA RESEARCH OTHER*[id number] 01/05/2014 12/21/2016 Axillary pain 11/03/2013 12/21/2016 Obesity, [...] cath 09/201008/26/2011 12/21/2016 FOLLOWING SURGERY, UNSPECIFI ED ([facility] 08/25/2011) 08/26/2011 12/21/2016 ADVANCE DIRECTIVE INFORMATION 04/17/2011 12/21/2016 Overview: Yes, Patient instructed to provide copy of advance directive for provider to review and to be scanned into Electronic Medical Record ADVANCE DIRECTIVE INFORMATION 03/01/2011 12/21/2016 Overview: Yes, Patient instructed to provide copy of advance directive for provider to review and to be scanned into Electronic Medical Record [facility] V710 Clinical Trial*[id number] 12/22/2010 04/14/2011 S/P aortic valve replacement 12/01/2010 08/26/2011 S/P AORTIC VALVE REPLACEMENT - #25 pericardial Mc valve 11/01/2010 06/28/2018 Overview: Aortic valve replacement with #25 pericardial Mc valve, model 2800TFX, serial number [id number] (Dr. Walker) [place] [id number] Clinical Trial*[id number] 10/18/2010 11/21/2010 Body mass index (BMI) of [...] as of this encounter (statuses as of 10/18/2023) Immunizations Name Administration Dates Next Due COVID-19 mRNA, LNP-s, No Pre serve, 2-Dose Series (Moderna) 10/25/2021,02/16/2021,01/18/2021 HEP A - Hepatitis A (Adult > 18 yrs) 06/07/2018, 12/05/2017 Hepatitis B, 20+ yrs 06/07/2018,01/08/20 18,12/05/2017,06/15,10/27/2013,09/12/2013 Pneumococcal Conjugate Vacci ne, 20-valent ([id number]) 06/22/2023 Pneumococcal Polysaccharide PPV23 (Pneumovax) 01/02/2008 Seasonal [...] encounter Miscellaneous Notes * Telephone Encounter - Heather SoNeeraj, [facility] - 10/18/2023 7:32 AM EST Did you pend patient's preferred pharmacy and medication before forwarding?no Pharmacy: [facility] [address] [place] [address] Pending Prescriptions: Disp Refills Dexcom G6 Transmitter 1 Each 3 Sig: Use as directed. Use 1 transmitter every 90 days E 11.9 Dexcom G6 Sensor 9 Each 3 Sig: Use as directed. Use 1 sensor every 10 days E 11.9 Last Visit: 09/14/2023 (in office), 10/08/2023 (telemedicine) Next Visit: 10/29/2023 If no future appointments scheduled, and last appointment is greater than a year ago, please schedule patient for a follow-up appointment Last date the medication was ordered: 01/16/23 Is this request for a controlled substance?No Urine Drug Screen:No results found. However, due to the size of the patient record, not all encounters were searched. Please check Results Review for a complete set of results. Patient Phone Numbers Labs: Lab Results Component Value Date/Time CREAT 1.3 (H) 10/15/2023 11:56 AM CREAT 0.80 08/02/2023 12:00 AM CREAT 1.2 (H) 09/07/2020 10:58 AM POTASSIUM 3.6 10/15/2023 11:56 AM POTASSIUM 3.0 (A) 08/02/2023 12:00 AM POTASSIUM 4.8 09/07/2020 10:58 AM TSH 2.83 10/15/2023 11:56 AM TSH 2.41 12/09/2019 01:49 PM LDLCALC 32 08/30/2018 04:00 PM LDLDIRECT 52 04/09/2023 01:44 PM LDLDIRECT 30 09/07/2020 10:58 AM ALT 11 10/15/2023 11:56 AM ALT 20 09/07/2020 10:58 AM HGBA1C 7.5 (H) 09/18/2023 09:32 AM HGBA1C 8.3 (H) 12/09/2019 01:49 PM Neeraj Romero RPh, CACP, CDE Clinical Pharmacist Medication Therapy Management [facility] 10/18/2023, 7:34 AM documented in this encounter Plan of Treatment Upcoming Encounters Date Type Department Care Team (Latest Contact Info) Description 10/29/2023 11:30 AM EST Pharmacy Pharmacy, [facility] [address] [facility] [place] [address] Pharmacist1, [facility] [address] [facility] [place] [address] 10/30/2023 9:30 AM EST Telemedicine [facility] [address], [place] [phone] Anjali Alanis [facility] [address], [place] [phone] 11/21/2023 9:20 AM EST Office Visit Family Practice [facility] [address] [place] [address] Gregory Rausch MD [address] [place] [address] 12/03/2023 12:30 PM EDT Home Visit [facility] at [facility] [address] [place] [address] Jaycee Sorto RN [address] [place] [address] 12/05/2023 10:24 AM EDT Hospital Encounter [facility], Operating Room [facility] [address] [place] [address] Ramsey Burnett, DO [address] [address] 12/05/2023 10:24 AM EDT - 12/05/2023 11:17 AM EDT Surgery OR [facility], Operating Room [facility] [address] [place] [phone] Ramsey Burnett, DO [address] [address] LEFT EXTRACAPSULAR CATARACT REMOVAL COMPLEX WITH IOL 12/06/2023 8:45 AM EDT Office Visit Ophthalmology, [facility] [address] [place] [address] Ramsey Burnett, DO [address] [place] [address] 12/13/2023 2:15 PM EDT Office Visit Ophthalmology, [facility] [address] [place] [address] Ramsey Burnett, DO [address] [place] [address] 01/10/2024 2:00 PM EDT Office Visit Ophthalmology, [facility] [address] [place] [address] annRamsey, DO [address] [facility] [place] [address] 02/04/2024 10:20 AM EDT Office Visit Family Practice [facility] [address] [place] [address] Gregory Rausch MD [address] [place] [address] Scheduled Procedures Name Priority Associated Diagnoses Date/Ti [...] Additional history exists CKD PHOS USE SMARTSET 13288 06/18/202405/26, 06/16/2023, 06/15/2023, Additional history exists Diabetic Eye Exam 09/13/2024 09/13/2023, , 09/13/2023, Additional history exists B-12 09/18/2024 09/18/2023, 08/24, 2020, Additional history exists CKD HGB USE SMARTSET 97085 10/15/202410/15, 07/31/2023, 07/31/2023, Additional history exists TSH [...] this encounter Medical Devices Implanted Type Area Group Therapist Device Identifier Shelf Expiration Date Model / Serial / Lot Cath Roselia Single Lumen - [id number] Implanted:Qty : 1 on 03/12/2008 at OR [facility] Left: Chest [facility] *DO NOT USE* 07/25/2012 [id number] / / [id number] Valve Tarsha Aortic [id number] - [id number] Implanted:Qty : 1 on 11/01/2010 at OR [facility] N/A: Heart MC HomelocCIICRTec DANIEL 05/20/2012 [id number] / / [id number] Mesh Soft [id number] - [id number] Implanted:Qty : 1 on 10/10/2019 by Gigi Hendrickson MD at OR [facility] N/A: Abdomen CR BARD : DAVOL [id number] 05/21/2024 [id number] / / [id number] Lens 22.5 Sn60wf - [id number] - [id number] Implanted:Qty : 1 on 09/15/2020 by Renaldo Cook, Cece Acosta MD at OR [facility] Right: Eye IVA : SURGICAL [id number] 05/13/2025 SN60 WF.225 / [id number] / [id number] documented as of this encounter Visit Diagnoses Diagnosis Type 2 diabetes mellitus with hemoglobin A1c goal of less than 7.0% (HCC) Cataract Unspecified cataract documented in this [...] the patient have Health Care Power of Creel Operator? No Full Code 10/10/2019 8:40 AM 10/10/2019 5:53 PM This order reflects the patients wishes and were consensually agreed upon. Full Code 11/06/2017 4:55 PM 11/07/2017 7:14 PM This order reflects the patients wishes and were consensually agreed upon. Healthcare Agents on File Name Relationship Healthcare Agent [facility] p Communication Gigi Rose Adult Child Health Care Repr esentative (appointed verbally by patient or by statute hierarchy) Care Teams Garnett Machine Operator Helper Relationship Specialty Start Date End Date Gregory Rausch MD [address] [place] [address] PCP - General Family Medicine 02/12/20 documented as of this encounter
--- OUTSIDE RECORDS SUMMARY | 2023-10-27 12:08 | External Medical Summary | Summary of Care ---
Author Name Unknown Organization [facility] Address [address] [place] [address] Phone [phone] Care Team Providers Care Service Writer Name Role Phone Gregory Rausch MD Primary Care Provider [phone] Reason for Visit * Reason Comments Diabetes Follow-Up Dosage Adjustment In Person (Anticoag Cl inic) Encounter Details Date Type Department Care Team (Late st Contact Info) Description 09/26/2023 10:40 AM [facility] Pharmacy Pharmacy, [facility] [address] [facility] [place] [address] Pharmacist1, [facility] [address] [place] [address] Type 2 diabetes mellitus with hemoglobin A1c goal of less than 7.0% ([facility])*; Type 2 diabetes mellitus with stage 3a chronic kidney disease, with long-term current use of insulin ([facility]); Type 2 diabetes mellitus with diabetic peripheral angiopathy without gangrene, with long-term current use of insulin ([facility]); Type 2 diabetes mellitus with both eyes affected by mild nonproliferative retinopathy and macular edema, with long-term current use of insulin ([facility]) Allergies Active Allergy Reactions Criticality Noted Date Comments Adhesive Tape 07/02/2017 Can tolerate band-aids Glycerin Other (Please comment) 03/12/2008 Topical agents with glycein-burning & itching Lactose 12/09/2014 Dairy - gas Lisinopril Cough 01/21/2010 Monosodium Glutamate Edema Other 03/12/2008 Hands and feet Penicillins Rash 11/14/2007 documented as of this encounter (statuses as of 10/16/2023) Medications Medication Sig Dispensed Refills Start Date [...] hypoglycemia E11.9 100 Tab 3 1 Active Integrated Trade ProcessingTouch Verio w/Device Kit Use up to 4 times a day E11.9 1 Kit 0 2 Active Integrated Trade ProcessingTouch Delica Lancets 33G TEST 4 TIMES DAILY [...] insulin pump 1 Kit 0 3 Active Dexcom G6 SensorIndications:Typ e 2 diabetes mellitus with hemoglobin A1c goal of less than 7.0% (HCC) Use as directed. Use 1 sensor every 10 days E 11.9 9 Each 3 3 Active Dexcom G6 TransmitterIndication s:Type 2 diabetes mellitus with hemoglobin A1c goal of less than 7.0% (HCC) Use as directed. Use 1 transmitter every 90 days E 11.9 1 Each 3 3 Active Fluticasone Propionate 50 MCG/ACT Nasal [...] heart failure with preserved ejection fraction (HFpEF) ([facility]) Take 1 Tablet by mouth in the [...] hemoglobin A1c goal of less than 7.0% ([facility]),Type 2 diabetes mellitus with stage 3a chronic kidney disease, with long-term current use of insulin ([facility]) Inject 30 Units under the skin at bedtime. 6 mL 2 3 Active BD Pen Needle Short U/F 31G X 8 MMIndications:Type 2 diabetes mellitus with hemoglobin A1c goal of less than 7.0% ([facility]),Type 2 diabetes mellitus with stage 3a chronic kidney disease, with long-term current use of insulin ([facility]) Use with insulin 4 times daily 400 Each 3 3 Active Gaviscon 80-14.2 MG Oral Tablet Chewable (Alum Hydroxide-Mag Trisilicate) Take by mouth as needed. 0 Active Atorvastatin Calcium 40 MG Oral Tablet (Lipitor)Indications: Heart failure, systolic, due to idiopathic cardiomyopathy ([facility]),S/P aortic valve replacement,HTN, goal below [...] hemoglobin A1c goal of less than 7.0% ([facility]) Use up to 50 units [...] before bedtime. 60 Tablet 5 4 Active Ammonium Lactate 12 % External Lotion (Lac-Hydrin) Apply to both feet once daily. 400 g 3 3 10/01/19 24 Discontinu ed(Refill) Ozempic (2 MG/DOSE) 8 MG/3ML Subcutaneous Solution Pen-injector (Semaglutide (2 MG/DOSE))Indications: Type 2 diabetes mellitus with hemoglobin A1c goal of less than 7.0% ([facility]),Type 2 diabetes mellitus with diabetic mononeuropathy, with long-term current use of insulin ([facility]),Type 2 diabetes mellitus with both eyes affected by mild nonproliferative retinopathy and macular edema, with long-term current use of insulin ([facility]),Type 2 diabetes mellitus with stage 3a chronic kidney disease, with long-term current use of insulin ([facility]) Inject 0.75 mL under the skin once a week. 9 mL 3 3 10/01/19 24 Discontinu ed(Refill) metOLazone 2.5 MG Oral Tablet (Zaroxolyn)Indication s:Acute on chronic heart failure with preserved ejection fraction (HFpEF) (HCC) One tablet one morning twice per week (Sunday and Sunday), 30 minutes prior to torsemide dose 24 Tablet 3 3 10/01/19 24 Discontinu ed(Refill) Nystatin 512636 UNIT/GM External Powder (Nystop)Indications:C andidal intertrigo APPLY TOPICALLY TO AFFECTED AREA 3 TIMES A DAY. APPLY TO AFFECTED AREAS 60 g 1 3 10/01/19 24 Discontinu ed(Refill) Aquaphor External Ointment Apply topically to affected area as needed for Dry Skin. Apply to face 420 g 0 3 10/01/19 24 Discontinu ed(Refill) Gabapentin 100 MG Oral Capsule (Neurontin)Indication s:Polyneuropathy associated with underlying disease ([facility]) Take 1 Capsule by mouth in the morning and 1 Capsule at noon and 1 Capsule before bedtime. 90 Capsule 0 3 10/01/19 24 Discontinu ed(Refill) documented as of this encounter (statuses as of 10/16/2023) Active Problems Problem Noted Date Diagnosed Date [...] eye 09/28/2020 Coronary artery disease invo lving [place] coronary artery of [place] heart without angina pectoris 12/16/2019 Last Assessment [...] as of this encounter (statuses as of 10/16/2023) Resolved Problems Problem Noted Date Diagnosed Date [...] 12/21/2016 Diabetes mellitus 01/05/2014 12/21/2016 LEYVA RESEARCH OTHER*[id number] 01/05/2014 12/21/2016 Axillary pain 11/03/2013 12/21/2016 Obesity, [...] 12/21/2016 FOLLOWING SURGERY, UNSPECIFI ED ([facility] 08/25/2011) 08/26/2011 12/21/2016 ADVANCE DIRECTIVE INFORMATION 04/17/2011 12/21/2016 Overview: Yes, Patient instructed to provide copy of advance directive for provider to review and to be scanned into Electronic Medical Record ADVANCE DIRECTIVE INFORMATION 03/01/2011 12/21/2016 Overview: Yes, Patient instructed to provide copy of advance directive for provider to review and to be scanned into Electronic Medical Record [facility] V710 Clinical Trial*[id number] 12/22/2010 04/14/2011 S/P aortic valve replacement 12/01/2010 08/26/2011 S/P AORTIC VALVE REPLACEMENT - #25 pericardial Mc valve 11/01/2010 06/28/2018 Overview: Aortic valve replacement with #25 pericardial Mc valve, model 2800TFX, serial number [id number] (Dr. Walker) [facility] V710 Clinical Trial*[id number] 10/18/2010 11/21/2010 Body mass index (BMI) of [...] as of this encounter (statuses as of 10/16/2023) Immunizations Name Administration Dates Next Due COVID-19 mRNA, LNP-s, No Pre serve, 2-Dose Series (Moderna) 10/25/2021,02/16/2021,01/18/2021 HEP A - Hepatitis A (Adult > 18 yrs) 06/07/2018, 12/05/2017 Hepatitis B, 20+ yrs 06/07/2018,01/08/20 18,12/05/2017,06/15,10/27/2013,09/12/2013 Pneumococcal Conjugate Vacci ne, 20-valent (Torkeit10) 06/22/2023 Pneumococcal Polysaccharide PPV23 (Pneumovax) 01/02/2008 Seasonal [...] this encounter Progress Notes * Neeraj Matthew, [facility] - 09/26/2023 10:44 AM EST Medication Therapy Disease Management Clinic - Diabetes Management Progress Note Jovita Rose, identified by name and date of , is a 62 year old female being seen for diabetes management/education. Patient presents for return diabetic visit. Patient to clinic for Omnipod 5 start follow up. DIABETES: Current diabetic medications: Ozempic 1mg every Sunday (1mg = 36 clicks) Metformin 1000mg twice daily Novolog CF 2/50 over 200 Omnipod Insulin Pump (Serial Number: need to get after starting) Insulin: Novolog Basal Rate: 0.55 units/hour Bolus: 0 units with breakfast, 0 units with lunch and 0 units with supper Bolus Calculator: on and using ICR: 18 ISF: 50 Blood Glucose Goal Limits: 70-180 Bolus Calculator: Target B Correct above: 180 Minimum B Active Insulin Time: 2 Medication Injection Site: Abdomen Lifestyle: Diet: no change History of Treatment Barriers: Lifestyle: None Therapy considerations: Cost Medication: None Glucose Review/SMBG: No dexcom readings available. Patient had dexcom attached but it was beyond the 10 day sensor life.Patient did not have a G6 sensor with her (only G7). I walked her through the process of stopping an sensor and restarting a new sensor. She will start a ne sensor when she gets home. As a result her Omnipod is not working as intended. Hypoglycemia: Does your blood sugar go below [...] hemoglobin A1c goal of less than 7.0% ([facility]) E11.9 2. Type 2 diabetes mellitus with stage 3a chronic kidney disease, with long-term current use of insulin ([facility]) E11.22 N18.31 Z79.4 3. Type 2 diabetes mellitus with diabetic peripheral angiopathy without gangrene, with long-term current use of insulin ([facility]) E11.51 Z79.4 4. Type 2 diabetes mellitus with both eyes affected by mild nonproliferative retinopathy and macular edema, with long-term current use of insulin ([facility]) E11.3213 Z79.4 BG Readings - Blood sugars not available. Her dexcom needed replaced at appointment. It doesn't appear it was communicating with the Omnipod reader also. She did not have a new Dexcom to place at appointment. She was going to start a new Dexcom G6 sensor when she got home. Medications - Reviewed current regimen, patient is not adherent to regimen. Current Pod not active.She stated she replaced the pod after the old one ended but it was not communicating with the reader and was delivering no insulin. She had a new pod with her so we started a new pod. I walked the patient through the process but I am not sure she will be able to replace the pod in 3 days when it isempty. I am sending a message to the Owlinipod rep to have her please contact the patient and spend time with her and her family at the home to teach the family to help the patient with Omnipod use. Son was unable to come to the Omnipod teaching and daughter was on the phone listening as I went over starting and using the Omnipod 5 system. Contacted Omnipod Rep to have here go to patient's home for evaluation of capabilities to use. Contacted the patient at 2:56 PM and she did not receive any more Dexcom G6s. Caregiver checked also. I called [employer] and asked to speak to a supervisor curing room but I was not connected with one. I explained that the patient needs her G6 supply overnighted so she can use her Omnipod 5 as intended. Akosha stated she would get supply shipped today. Diet, Exercise, Lifestyle - No significant lifestyle changes since last visit. Discussed with patient today. Patient is agreeable to SMBG 3-4 time(s) daily. Patient aware to contact clinic if any hypoglycemia before next visit. MEDICATION CHANGES: no change Diabetic Medications: Ozempic 1mg every Sunday (1mg = 36 clicks) Metformin 1000mg twice daily Novolog CF over 200 Omnipod Insulin Pump (Serial Number: need to get after starting) Insulin: Novolog Basal Rate: 0.55 units/hour Bolus: 0 units with breakfast, 0 units with lunch and 0 units with supper Bolus Calculator: on and using ICR: 18 ISF: 50 Blood Glucose Goal Limits: 70-180 Bolus Calculator: Target B Correct above: 180 Minimum B Active Insulin Time: 2 HEALTH MAINTENANCE INTERVENTIONS: Labs: Up to Date Immunizations: Up to Date Foot Exam: Complete with next PCP visit on 11/21/23 Eye Exam: Up to Date Annual Wellness Visit: Up to Date FOLLOW UP: Phone call follow up in 12 days 10/08/2023 Neeraj Romero RPh, [facility] Clinical Pharmacist - Senior Software Qa Analyst Medication Therapy Management Clinic 09/26/2023, 10:45 AM documented in this encounter Plan of Treatment Upcoming Encounters Date Type Department Care Team (Latest Contact Info) Description 10/29/2023 11:30 AM EST Pharmacy Pharmacy, [facility] [address] [facility] [place] [address] Pharmacist1, [facility] [address] [facility] [place] [address] 10/30/2023 9:30 AM EST Telemedicine Psychology, [place] [address] [place] [address] Anjali Alanis, [facility] [address] [place] [address] 11/21/2023 9:20 AM EST Office Visit Family [facility] [address] [place] [address] Gregory Rausch MD [address] [place] [address] 12/03/2023 12:30 PM EDT Home Visit [facility] at [facility] [address] [place] [address] Jaycee Sorto RN [address] [place] [address] 12/05/2023 10:24 AM EDT Hospital Encounter [facility], Operating Room [facility] [address] [place] [id number] Ramsey Burnett, DO [address] [place] [address] 12/05/2023 10:24 AM EDT - 12/05/2023 11:17 AM EDT Surgery [facility], Operating Room [facility] [address] [place] [id number] Ramsey Burnett, DO [address] [place] [address] LEFT EXTRACAPSULAR CATARACT REMOVAL COMPLEX WITH IOL 12/06/2023 8:45 AM EDT Office Visit Ophthalmology, [facility] [address] [facility] [place] [address] Ramsey Burnett, DO [address] [place] [address] 12/13/2023 2:15 PM EDT Office Visit Ophthalmology, [facility] [address] [facility] [place] [address] Ramsey Burnett, DO [address] [place] [address] 01/10/2024 2:00 PM EDT [facility], [facility] [place] [address] Ramsey Burnett, DO [address] [place] [address] 02/04/2024 10:20 AM EDT Office Visit Family Practice [facility] [address] [facility] [place] [address] Gregory Rausch MD [address] [place] [address] Scheduled Procedures Name Priority Associated Diagnoses Date/Ti [...] Additional history exists CKD PHOS USE SMARTSET 71787 06/18/202405/26, 06/16/2023, 06/15/2023, Additional history exists Diabetic Eye Exam 09/13/2024 09/13/2023, , 09/13/2023, Additional history exists B-12 09/18/2024 09/18/2023, 08/24, 2020, Additional history exists CKD HGB USE SMARTSET 30259 10/15/202410/15, 07/31/2023, 07/31/2023, Additional history exists TSH [...] this encounter Medical Devices Implanted Type Area Delinquent Notice Machine Operator Device Identifier Shelf Expiration Date Model / Serial / Lot Cath Roselia Single Lumen - [id number] Implanted:Qty : 1 on 03/12/2008 at OR [facility] Left: Chest [employer] *DO NOT USE* 07/25/2012 21-4053-24 / / [id number] Valve Tarsha Aortic [id number] - [id number] Implanted:Qty : 1 on 11/01/2010 at OR [facility] N/A: Heart MC LIFESCISplurgy DANIEL 05/20/2012 [id number] / / [id number] Mesh Soft 45s13pt - [id number] Implanted:Qty : 1 on 10/10/2019 by Gigi Hendrickson MD at [facility] N/A: Abdomen CR BARD : DAVOL [id number] 05/21/2024 [id number] / / [id number] Lens 22.5 Sn60wf - [id number] - [id number] Implanted:Qty : 1 on 09/15/2020 by Renaldo Cook, Cece Acosta MD at OR [facility] Right: Eye IVA : SURGICAL [id number] 05/13/2025 SN60 WF.225 / [id number] / [id number] documented as of this encounter Visit Diagnoses Diagnosis Type 2 diabetes mellitus with hemoglobin A1c goal of less than 7.0% ([facility])- Primary Type 2 diabetes mellitus with stage 3a chronic kidney disease, with long-term current use of insulin ([facility]) Type 2 diabetes mellitus with diabetic peripheral angiopathy without gangrene, with long-term current use of insulin ([facility]) Type 2 diabetes mellitus with both eyes affected by mild nonproliferative retinopathy and macular edema, with long-term current use of insulin ([facility]) Cataract Unspecified cataract documented in this encounter [...] the patient have Health Care Power of [place] Artist? No Full Code 10/10/2019 8:40 AM 10/10/2019 5:53 PM This order reflects the patients wishes and were consensually agreed upon. Full Code 11/06/2017 4:55 PM 11/07/2017 7:14 PM This order reflects the patients wishes and were consensually agreed upon. Healthcare Agents on File Name Relationship [facility] Agent [facility] Gigi Gutierrez [facility] Adult Child Health Care Repr esentative (appointed verbally by patient or by statute hierarchy) Care Teams Service Writer Relationship Specialty Start Date End Date Gregory Rausch MD [address] [place] [address] PCP - General Family Medicine 02/12/20 documented as of this encounter
--- OUTSIDE RECORDS SUMMARY | 2023-10-27 12:08 | External Medical Summary | Summary of Care ---
Author Name Unknown Organization [facility] Address [address] [place] [address] Phone [phone] Care Team Providers Care Commercial Production Editor Name Role Phone Gregory Rausch MD Primary Care Provider [phone] Reason for Visit * Reason Comments Outpatient Testing Encounter Details Date Type Department Care Team (Late st Contact Info) Description 10/15/2023 11:50 AM EST Laboratory Laboratory, [facility] [address] [place] [address] [facility] [address] [place] [address] S/P TAVR (transcatheter aortic valve replacement); HTN, goal below 130/80; Chronic heart failure with preserved ejection fraction (HCC); HTN, goal below 140/90; History of GI bleed; Hypomagnesemia; Heart palpitations Allergies Active Allergy Reactions Criticality Noted Date [...] day E11.9 1 Kit 0 02/10/2022 Active FusionOneTouch Delica Lancets 33G TEST 4 TIMES DAILY [...] heart failure with preserved ejection fraction (HFpEF) ([facility]) Take 1 Tablet by mouth [...] hemoglobin A1c goal of less than 7.0% ([facility]),Type 2 diabetes mellitus with stage 3a chronic kidney disease, with long-term current use of insulin ([facility]) Inject 30 Units under the skin at bedtime. 6 mL 2 07/31/2023 Active BD Pen Needle Short U/F 31G X 8 MMIndications:Type 2 diabetes mellitus with hemoglobin A1c goal of less than 7.0% ([facility]),Type 2 diabetes mellitus with stage 3a chronic kidney disease, with long-term current use of insulin ([facility]) Use with insulin 4 times daily 400 Each 3 07/31/2023 Active Gaviscon 80-14.2 MG Oral Tablet Chewable (Alum Hydroxide-Mag Trisilicate) Take by mouth as needed. 0 Active Atorvastatin Calcium 40 MG Oral Tablet (Lipitor)Indications: Heart failure, systolic, due to idiopathic cardiomyopathy ([facility]),S/P aortic valve replacement,HTN, goal below [...] hemoglobin A1c goal of less than 7.0% ([facility]) Use up to 50 units [...] heart failure with preserved ejection fraction (HFpEF) ([facility]) One tablet one morning twice per week (Sunday and Sunday), 30 minutes prior to torsemide dose 30 Tablet 3 10/02/2023 Active Gabapentin 100 MG Oral Capsule (Neurontin)Indication s:Polyneuropathy associated with underlying disease ([facility]) Take 1 Capsule by mouth in the morning and 1 Capsule at noon and 1 Capsule before bedtime. 90 Capsule 0 10/02/2023 Active Ammonium Lactate 12 % External Lotion (Lac-Hydrin) Apply to both feet once daily. 400 g 3 10/02/2023 Active Nystatin 495810 UNIT/GM External Powder (Nystop)Indications:C andidal intertrigo Apply [...] hemoglobin A1c goal of less than 7.0% ([facility]),Type 2 diabetes mellitus with diabetic mononeuropathy, with long-term current use of insulin ([facility]),Type 2 diabetes mellitus with both eyes affected by mild nonproliferative retinopathy and macular edema, with long-term current use of insulin ([facility]),Type 2 diabetes mellitus with stage 3a chronic kidney disease, with long-term current use of insulin ([facility]) Inject 2 mg under the skin once a week. 9 mL 3 10/01/2023 Active traZODone HCl 100 MG Oral Tablet (Desyrel) Take 1 Tablet by mouth at bedtime. 0 Active documented as of this encounter (statuses as of 10/15/2023) Active Problems Problem Noted Date Diagnosed Date Thrombocytopenia 09/12/2023 Obesity, Class I, BMI 30.0-34.9 (see actual BMI) 07/31/2023 Type 2 diabetes mellitus wit h diabetic [...] eye 09/28/2020 Coronary artery disease invo lving [place] coronary artery of [place] heart without angina pectoris 12/16/2019 Last Assessment [...] Hyperglycemia due to diabetes mellitus 06/15/2023 07/31/2023 Splenic infarct 06/14/2023 07/31/2023 C. difficile colitis 06/14/2023 023 Pleural [...] 12/21/2016 Diabetes mellitus 01/05/2014 12/21/2016 LEYVA RESEARCH OTHER*[id number] 01/05/2014 12/21/2016 Axillary pain 11/03/2013 12/21/2016 Obesity, [...] cath 09/201008/26/2011 12/21/2016 FOLLOWING SURGERY, UNSPECIFI ED ([facility] BSO 08/25/2011) 08/26/2011 12/21/2016 ADVANCE DIRECTIVE INFORMATION 04/17/2011 12/21/2016 Overview: Yes, Patient instructed to provide copy of advance directive for provider to review and to be scanned into Electronic Medical Record ADVANCE DIRECTIVE INFORMATION 03/01/2011 12/21/2016 Overview: Yes, Patient instructed to provide copy of advance directive for provider to review and to be scanned into Electronic Medical Record [facility] V710 Clinical Trial*[id number] 12/22/2010 04/14/2011 S/P aortic valve replacement 12/01/2010 08/26/2011 S/P AORTIC VALVE REPLACEMENT - #25 pericardial Mc valve 11/01/2010 06/28/2018 Overview: Aortic valve replacement with #25 pericardial Mc valve, model 2800TFX, serial number [id number] (Dr. [place]) [facility] V710 Clinical Trial*[id number] 10/18/2010 11/21/2010 Body mass index (BMI) of [...] 06/07/2018,01/08/20 18,12/05/2017,06/15,10/27/2013,09/12/2013 Pneumococcal Conjugate Vacci ne, 20-valent ([id number]) 06/22/2023 Pneumococcal Polysaccharide PPV23 (Pneumovax) 01/02/2008 Seasonal [...] Care Team (Latest Contact Info) Description 10/15/2023 1:30 PM EST Cardiac Studies Cardiac Studies, [facility] [address] [facility] [place] [address] Arrived 10/15/2023 4:00 PM EST [facility] [address] [facility] [place] [address] Jaycee Sorto RN [address] [facility] [place] [address] 10/29/2023 11:30 AM EST Pharmacy Pharmacy, [facility] [address] [facility] [place] [address] Pharmacist1, [facility] [address] [place] [place] [address] 10/30/2023 9:30 AM EST Telemedicine Psychology, [place] [address] [place] [address] Anjali Alanis, [facility] [address] [place] [address] 11/21/2023 9:20 AM EST Office Visit Family Practice [facility] [address] [place] [address] Gregory Rausch MD [address] [place] [address] 12/05/2023 10:39 AM EDT Hospital Encounter [facility], Operating Room [facility] [address] [place] [phone] Ramsey Burnett, DO [address] [place] [address] 12/05/2023 10:39 AM EDT - 12/05/2023 11:32 AM EDT Surgery OR [facility], Operating Room [facility] [address] [place] [phone] Ramsey Burnett, DO [address] [place] [address] LEFT EXTRACAPSULAR CATARACT REMOVAL COMPLEX WITH IOL 12/06/2023 8:45 AM EDT Office Visit Ophthalmology, [facility] [address] [place] [address] Ramsey Burnett, DO [address] [place] [address] 12/13/2023 2:15 PM EDT Office Visit Ophthalmology, [facility] [place] [address] Ramsey Burnett, DO [address] [place] [address] 01/10/2024 2:00 PM EDT Office Visit Ophthalmology, [facility] [address] [place] [address] Ramsey Burnett, DO [address] [place] [address] 02/04/2024 10:20 AM EDT Office Visit [facility] [address] [place] [address] Gregory Rausch MD [address] [place] [address] Pending Results Name Type Priority Associated Diagnoses Date /Time COMPREHENSIVE METABOLIC PANEL Lab Routine S/P TAVR (transcatheter aortic valve replacement) HTN, goal below 130/80 Chronic heart failure with preserved ejection fraction (HCC) HTN, goal below 140/90 History of GI bleed 10/15/2023 11:56 AM EST TSH WITH FREE T4 IF INDICATED Lab [...] Heart palpitations 10/15/2023 11:56 AM EST Scheduled Procedures Name Priority Associated Diagnoses Date/Ti [...] Vaccine ( season) 2023 10/25/2021, 02/16/2021, 01/18/2021 GFR 01/31/2024 08/02/2023, 11/0 03/2023, 06/28/2023, Additional history exists Albumin/Creatinine Ratio 03/09/2024 023, 12/22/2022, 05/05/2021, Additional history exists HbA1c 03/19/2024 09/18/2023, 11/0 03/2023, 04/09/2023, Additional history exists TSH 06/06/2024 06/06/2023, 01/23, 12/22/2022, Additional history exists CKD PHOS USE SMARTSET 81821 06/18/202405/26, 06/16/2023, 06/15/2023, Additional history exists Diabetic Eye Exam 09/13/2024 09/13/2023, , 09/13/2023, Additional history exists B-12 09/18/2024 09/18/2023, 08/24, 2020, Additional history exists CKD HGB USE SMARTSET 67960 10/15/202410/15, 07/31/2023, 07/31/2023, Additional history exists COLONOSCOPY-EVERY [...] this encounter Medical Devices Implanted Type 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 [employer] Device Identifier Shelf Expiration Date Model / Serial / Lot Cath Roselia Single Lumen - [id number] Implanted:Qty : 1 on 03/12/2008 at OR [facility] Left: Chest [employer] *DO NOT USE* 07/25/2012 21-4053-24 / / [id number] Valve Tarsha Aortic [id number] - [id number] Implanted:Qty : 1 on 11/01/2010 at OR [facility] N/A: Heart [employer] DANIEL 05/20/2012 2800TFX-25 / / [id number] Mesh Soft [id number] - [id number] Implanted:Qty : 1 on 10/10/2019 by Gigi Hendrickson MD at [place] [facility] N/A: Abdomen CR BARD : DAVOL [id number] 05/21/2024 [id number] / / [id number] Lens 22.5 Sn60wf - [id number] - [id number] Implanted:Qty : 1 on 09/15/2020 by Renaldo Cook, Cece Acosta MD at OR [facility] Right: Eye IVA : SURGICAL [id number] 05/13/2025 SN60 WF.225 / [id number] / [id number] documented as of this encounter Procedures Procedure Name Priority Date/Time Associated Diagnosis Comments CBC Routine 10/15/2023 11:56 AM EST S/P TAVR (transcatheter aortic valve replacement) HTN, goal below 130/80 Chronic heart failure with preserved ejection fraction (HCC) HTN, goal below 140/90 History of GI bleed documented in this encounter Results * CBC (10/15/2023 11:56 AM EST) WBC 10.38 4.00 - 10.80 K/uL 10/15/2023 12:10 PM EST [facility] [place] [facility] RBC 4.83 3.85 - 5.15 M/uL 10/15/2023 12:10 PM EST [facility] [place] 57[facility]10 HGB 12.3 12.0 - 15.3 g/dL 10/15/2023 12:10 PM EST [facility] [place] 57[facility]10 HCT 38.3 36.0 - 45.2 % 10/15/2023 12:10 PM EST [facility] [place] [facility]10 MCV 79.3 81.5 - 97.5 fL 10/15/2023 12:10 PM EST [facility] 57-10 MCH 25.5 27.0 - 34.0 pg 10/15/2023 12:10 PM EST [facility] 57-10 MCHC 32.1 32.0 - 36.0 g/dL 10/15/2023 12:10 PM EST [facility] 57-10 RDW 16.0 11.5 - 15.5 % 10/15/2023 12:10 PM EST [facility] 57-10 PLT 175 140 - 400 K/uL 10/15/2023 12:10 PM EST [facility] 57-10 MPV 10.9 6.6 - 11.1 fL 10/15/2023 12:10 PM EST [facility] 57-10 Blood Venous blood specimen / Unknown Venipuncture / Unknown 10/15/2023 11:56 AM EST 10/15/2023 11:56 AM EST Feli Teague PA-C [facility] Address City/State/ZIP Co de Phone Number [facility] [place] [phone] [place] [address] documented in this encounter Visit Diagnoses Diagnosis S/P TAVR (transcatheter aortic valve replacement) Heart valve replaced by other means HTN, goal below 130/80 Unspecified essential hypertension Chronic heart failure with preserved ejection fraction (HCC) HTN, goal below 140/90 Unspecified essential hypertension History of GI bleed Personal history of other diseases of digestive system Hypomagnesemia Disorders of magnesium metabolism Heart palpitations Palpitations Cataract Unspecified cataract documented in this encounter [...] the patient have Health Care Power of Regulatory Compliance Officer? No Full Code 10/10/2019 8:40 AM 10/10/2019 5:53 PM This order reflects the patients wishes and were consensually agreed upon. Full Code 11/06/2017 4:55 PM 11/07/2017 7:14 PM This order reflects the patients wishes and were consensually agreed upon. Healthcare Agents on File Name Relationship Healthcare Agent Relationshi p Communication [facility]igi [facility] Health Care Repr esentative (appointed verbally by patient or by statute hierarchy) Care Teams Commercial Production Editor Relationship Specialty Start Date End Date Gregory Rausch MD [address] [place] [address] PCP - General Family Medicine 02/12/20 documented as of this encounter
--- OUTSIDE RECORDS SUMMARY | 2023-10-27 12:08 | External Medical Summary | Summary of Care ---
Author Name Unknown Organization [facility] Address [address] [place] [address] Phone [phone] Care Team Providers Care Entry Level Accountant Name Role Phone Deon Rausch MD Primary Care Provider [phone] Reason for Visit * Reason Comments eRx-Medication Refill Encounter Details Date Type Department Care Team (Late st Contact Info) Description 10/23/2023 Refill Family Practice [facility] [address] [facility] [place] [address] Deon Rausch MD [address] [facility] [place] [address] Polyneuropathy associated with underlying disease (HCC) Allergies Active Allergy Reactions Criticality Noted Date Comments Adhesive Tape 07/02/2017 Can tolerate band-aids Glycerin Other (Please comment) 03/12/2008 Topical agents with glycein-burning & itching Lactose 12/09/2014 Dairy - gas Lisinopril Cough 01/21/2010 Monosodium Glutamate Edema Other 03/12/2008 Hands and feet Penicillins Rash 11/14/2007 documented as of this encounter (statuses as of 10/23/2023) Medications Medication Sig Dispensed Refills Start Date [...] goal of less than 7.0% ([facility]),Type 2 diabetes mellitus with stage 3a chronic kidney disease, with long-term current use of insulin ([facility]) Inject 30 Units under the skin at bedtime. 6 mL 2 07/31/20 Active BD Pen Needle Short U/F 31G X 8 MMIndications:Type 2 diabetes mellitus with hemoglobin A1c goal of less than 7.0% ([facility]),Type 2 diabetes mellitus with stage 3a chronic kidney disease, with long-term current use of insulin ([facility]) Use with insulin 4 times daily 400 Each 3 07/31/20 Active Gaviscon 80-14.2 MG Oral Tablet Chewable (Alum Hydroxide-Mag Trisilicate) Take by mouth as needed. 0 Active Atorvastatin Calcium 40 MG Oral Tablet (Lipitor)Indications :Heart failure, systolic, due to idiopathic cardiomyopathy ([facility]),S/P aortic valve replacement,HTN, goal below [...] goal of less than 7.0% ([facility]) Use up to 50 units [...] with preserved ejection fraction (HFpEF) ([facility]) One tablet one morning twice per week (Sunday and Sunday), 30 minutes prior to torsemide dose 30 Tablet 3 10/02/19 24 Active Ammonium Lactate 12 % External Lotion (Lac-Hydrin) Apply to both feet once daily. 400 g 3 10/02/19 24 Active Nystatin 597896 UNIT/GM External Powder (Nystop)Indications: Candidal intertrigo Apply [...] goal of less than 7.0% ([facility]),Type 2 diabetes mellitus with diabetic mononeuropathy, with long-term current use of insulin ([facility]),Type 2 diabetes mellitus with both eyes affected by mild nonproliferative retinopathy and macular edema, with long-term current use of insulin ([facility]),Type 2 diabetes mellitus with stage 3a chronic kidney disease, with long-term current use of insulin ([facility]) Inject 2 mg under the skin once a week. 9 mL 3 10/01/19 24 Active traZODone HCl 100 MG Oral Tablet (Desyrel) Take 1 Tablet by mouth at bedtime. 0 Active Dexcom G6 TransmitterIndicatio ns:Type 2 diabetes mellitus with hemoglobin A1c goal of less than 7.0% ([facility]) Use as directed. Use 1 transmitter every 90 days E 11.9 1 Each 3 10/18/19 24 Active Dexcom G6 SensorIndications:Ty pe 2 diabetes mellitus with hemoglobin A1c goal of less than 7.0% ([facility]) Use as directed. Use 1 sensor every 10 days E 11.9 9 Each 3 10/18/19 24 Active Gabapentin 100 MG Oral Capsule (Neurontin)Indicatio ns:Polyneuropathy associated with underlying disease (HCC) TAKE 1 CAPSULE BY MOUTH EVERY DAY IN THE MORNING , AT NOON, AND BEFORE BEDTIME 90 Capsule 0 10/23/19 24 Active Gabapentin 100 MG Oral Capsule (Neurontin)Indicatio ns:Polyneuropathy associated with underlying disease (HCC) Take 1 Capsule by mouth in the morning and 1 Capsule at noon and 1 Capsule before bedtime. 90 Capsule 0 10/02/19 24 024 Discontinued documented as of this encounter (statuses as of 10/23/2023) Active Problems Problem Noted Date Diagnosed Date [...] eye 09/28/2020 Coronary artery disease invo lving [place] coronary artery of [place] heart without angina pectoris 12/16/2019 Last Assessment [...] as of this encounter (statuses as of 10/23/2023) Resolved Problems Problem Noted Date Diagnosed Date [...] 12/21/2016 Diabetes mellitus 01/05/2014 12/21/2016 LEYVA RESEARCH OTHER*[id number] 01/05/2014 12/21/2016 Axillary pain 11/03/2013 12/21/2016 Obesity, [...] 12/21/2016 FOLLOWING SURGERY, UNSPECIFI ED ([facility] BSO 08/25/2011) 08/26/2011 12/21/2016 ADVANCE DIRECTIVE INFORMATION 04/17/2011 12/21/2016 Overview: Yes, Patient instructed to provide copy of advance directive for provider to review and to be scanned into Electronic Medical Record ADVANCE DIRECTIVE INFORMATION 03/01/2011 12/21/2016 Overview: Yes, Patient instructed to provide copy of advance directive for provider to review and to be scanned into Electronic Medical Record [facility] V710 Clinical Trial*[id number] 12/22/2010 04/14/2011 S/P aortic valve replacement 12/01/2010 08/26/2011 S/P AORTIC VALVE REPLACEMENT - #25 pericardial Mc valve 11/01/2010 06/28/2018 Overview: Aortic valve replacement with #25 pericardial Mc valve, model 2800TFX, serial number [id number] (Dr. [place]) [facility] V710 Clinical Trial*[id number] 10/18/2010 11/21/2010 Body mass index (BMI) of [...] as of this encounter (statuses as of 10/23/2023) Immunizations Name Administration Dates Next Due COVID-19 mRNA, LNP-s, No Pre serve, 2-Dose Series (Moderna) 10/25/2021,02/16/2021,01/18/2021 HEP A - Hepatitis A (Adult > 18 yrs) 06/07/2018, 12/05/2017 Hepatitis B, 20+ yrs 06/07/2018,01/08/20 18,12/05/2017,06/15,10/27/2013,09/12/2013 Pneumococcal Conjugate Vacci ne, 20-valent ([id number]) 06/22/2023 Pneumococcal Polysaccharide PPV23 (Pneumovax) 01/02/2008 Seasonal [...] encounter Miscellaneous Notes * Telephone Encounter - Deon Rausch MD - 10/23/2023 12:39 PM ESTSigned Prescriptions: Disp Refills Gabapentin 100 MG Oral Capsule (Neurontin) 90 Cap*0 Sig: TAKE 1 CAPSULE BY MOUTH EVERY DAY IN THE MORNING , AT NOON, AND BEFORE BEDTIME Authorizing Provider: DEON RAUSCH * Telephone Encounter - Jacki Cook [facility] - 10/23/2023 7:48 AM EST Pending Prescriptions: Disp Refills Gabapentin 100 MG Oral Capsule [Pharmacy M*90 Cap*0 Sig: TAKE 1 CAPSULE BY MOUTH EVERY DAY IN THE MORNING , AT NOON, AND BEFORE BEDTIME * Telephone Encounter - Jacki Cook [facility] - 10/23/2023 7:47 AM EST [facility] is currently not authorized to approve refills for the pended medication(s) per refill protocol. Please approve if appropriate. Did you pend patient's preferred pharmacy and medication before forwarding?yes Pharmacy: [employer] [address] [place] [address] Pending Prescriptions: Disp Refills Gabapentin 100 MG Oral Capsule (Neurontin*90 Cap*0 Sig: TAKE 1 CAPSULE BY MOUTH EVERY DAY IN THE MORNING , AT NOON, AND BEFORE BEDTIME Last Visit: 07/31/2023 (in office), 09/12/2023 (telemedicine) Next Visit: 11/21/2023 If no future appointments scheduled, and last appointment is greater than a year ago, please schedule patient for a follow-up appointment Last date the medication was ordered: 10/02/23 Is this request for a controlled substance?No [...] AM HGBA1C 8.3 (H) 12/09/2019 01:49 PM Thank you, Jacki Cook, PharmD Clinical Pharmacist [facility] ([facility]) (formerly Telepharmacy) 10/23/23 7:47 AM [phone] documented in this encounter Plan of Treatment Upcoming Encounters Date Type Department Care Team (Latest Contact Info) Description 10/29/2023 11:30 AM EST Pharmacy Pharmacy, [facility] [address] [facility] [place] [address] Pharmacist1, [facility] [address] [facility] [place] [address] 10/30/2023 9:30 AM EST Telemedicine Psychology, [place] [address] [place] [address] Anjali Alanis, [facility] [address] [place] [address] 11/21/2023 9:20 AM EST Office Visit Family Practice [facility] [address] [place] [address] Deon Rausch MD [address] [place] [address] 12/03/2023 12:30 PM EDT [facility] Visit [facility] [place], [facility] [address] [place] [address] Jaycee Sorto, RN [address] [place] [address] 12/05/2023 10:24 AM EDT Hospital Encounter [facility], Operating Room [facility] [address] [place] [phone] Ramsey Burnett, DO [address] [place] [address] 12/05/2023 10:24 AM EDT - 12/05/2023 11:17 AM EDT Surgery [facility], Operating Room [facility] [address] [facility] [place] [phone] Ramsey Burnett, DO [address] [place] [address] LEFT EXTRACAPSULAR CATARACT REMOVAL COMPLEX WITH IOL 12/06/2023 8:45 AM EDT Office Visit Ophthalmology, [facility] [address] [facility] [place] [address] Ramsey Burnett, DO [address] [place] [address] 12/13/2023 2:15 PM EDT Office Visit Ophthalmology, [facility] [address] [facility] [place] [address] Ramsey Burnett, DO [address] [place] [address] 01/10/2024 2:00 PM EDT Office Visit Ophthalmology, [facility] [address] [facility] [place] [address] Ramsey Burnett, DO [address] [place] [address] 02/04/2024 10:20 AM EDT Office Visit Family Practice [facility] [address] [facility] [place] [address] Deon Rausch MD [address] [facility] [place] [address] Scheduled Procedures Name Priority Associated Diagnoses Date/Ti [...] Additional history exists CKD PHOS USE SMARTSET 50906 06/18/202405/26, 06/16/2023, 06/15/2023, Additional history exists Diabetic Eye Exam 09/13/2024 09/13/2023, , 09/13/2023, Additional history exists B-12 09/18/2024 09/18/2023, 08/24, 2020, Additional history exists CKD HGB USE SMARTSET 89618 10/15/202410/15, 07/31/2023, 07/31/2023, Additional history exists TSH [...] this encounter Medical Devices Implanted Type Area Automatic Embroidery Machine Tender Device Identifier Shelf Expiration Date Model / Serial / Lot Cath Roselia Single Lumen - [id number] Implanted:Qty : 1 on 03/12/2008 at OR [facility] Left: Chest [facility] *DO NOT USE* 07/25/2012 21-4053-24 / / [id number] Valve Tarsha Aortic [id number] - [id number] Implanted:Qty : 1 on 11/01/2010 at OR [facility] N/A: Heart [employer] DANIEL 05/20/2012 2800TFX-25 / / [id number] Mesh Soft [id number] - [id number] Implanted:Qty : 1 on 10/10/2019 by Gigi Hendrickson MD at OR [facility] N/A: Abdomen CR BARD : DAVOL [id number] 05/21/2024 [id number] / / [id number] Lens 22.5 Sn60wf - [id number] - [id number] Implanted:Qty : 1 on 09/15/2020 by Renaldo Cook, Cece Acosta MD at OR [facility] Right: Eye IVA : SURGICAL [id number] 05/13/2025 SN60 WF.225 / [id number] / [id number] documented as of this encounter Visit Diagnoses Diagnosis Polyneuropathy associated with underlying disease (HCC) Cataract Unspecified cataract documented in this [...] the patient have Health Care Power of Wood Cabinetmaker? No Full Code 10/10/2019 8:40 AM 10/10/2019 [...] patient or by statute hierarchy) Care Teams Entry Level Accountant Relationship Specialty Start Date End Date Deon Rausch MD [address] [place] [address] PCP - General Family Medicine 02/12/20 documented as of this encounter
--- OUTSIDE RECORDS SUMMARY | 2023-10-27 12:09 | External Medical Summary | Summary of Care ---
Author Name Unknown Organization [facility] Address [address] [place] [address] Phone [phone] Care Team Providers Care Content Creation Manager Name Role Phone Gregory Rausch MD Primary Care Provider [phone] Reason for Visit * Reason Onset Date Comments Home Health 10/11/2023 Encounter Details Date Type Department Care Team (Late st Contact Info) Description 10/11/2023 Telephone Family Practice [facility] [address] [facility] [place] [address] Gregory Rausch MD [address] [facility] [address] Home Health Allergies Active Allergy Reactions Criticality Noted Date Comments Adhesive Tape 07/02/2017 Can tolerate band-aids Glycerin Other (Please comment) 03/12/2008 Topical agents with glycein-burning & itching Lactose 12/09/2014 Dairy - gas Lisinopril Cough 01/21/2010 Monosodium Glutamate Edema Other 03/12/2008 Hands and feet Penicillins Rash 11/14/2007 documented as of this encounter (statuses as of 10/12/2023) Medications Medication Sig Dispensed Refills Start Date [...] hypoglycemia E11.9 100 Tab 3 07/06/2021 Active [employer] [facility] Verio w/Device Kit Use up to 4 times a day E11.9 1 Kit 0 02/10/2022 Active [employer] Delica Lancets 33G TEST 4 TIMES DAILY [...] ER 10 MEQ Oral Tablet Extended ReleaseIndications:[place] on chronic heart failure with preserved ejection fraction (HFpEF) ([facility]) Take 1 Tablet by mouth in the [...] goal of less than 7.0% ([facility]),Type 2 diabetes mellitus with stage 3a chronic kidney disease, with long-term current use of insulin ([facility]) Inject 30 Units under the skin at bedtime. 6 mL 2 07/31/2023 Active BD Pen Needle Short U/F 31G X 8 MMIndications:Type 2 diabetes mellitus with hemoglobin A1c goal of less than 7.0% ([facility]),Type 2 diabetes mellitus with stage 3a chronic kidney disease, with long-term current use of insulin ([facility]) Use with insulin 4 times daily 400 Each 3 07/31/2023 Active Gaviscon 80-14.2 MG Oral Tablet Chewable (Alum Hydroxide-Mag Trisilicate) Take by mouth as needed. 0 Active Atorvastatin Calcium 40 MG Oral Tablet (Lipitor)Indications: Heart failure, systolic, due to idiopathic cardiomyopathy ([facility]),S/P aortic valve replacement,HTN, goal below 140/80,Dyslipidemia, goal [...] goal of less than 7.0% ([facility]) Use up to 50 units per day [...] with preserved ejection fraction (HFpEF) ([facility]) One tablet one morning twice per week (Sunday and Sunday), 30 minutes prior to torsemide dose 30 Tablet 3 10/02/2023 Active Gabapentin 100 MG Oral Capsule (Neurontin)Indication s:Polyneuropathy associated with underlying disease ([facility]) Take 1 Capsule by mouth in the morning and 1 Capsule at noon and 1 Capsule before bedtime. 90 Capsule 0 10/02/2023 Active Ammonium Lactate 12 % External Lotion (Lac-Hydrin) Apply to both feet once daily. 400 g 3 10/02/2023 Active Nystatin 109787 UNIT/GM External Powder (Nystop)Indications:C andidal intertrigo Apply [...] goal of less than 7.0% ([facility]),Type 2 diabetes mellitus with diabetic mononeuropathy, with long-term current use of insulin (HCC),Type 2 diabetes mellitus with both eyes affected by mild nonproliferative retinopathy and macular edema, with long-term current use of insulin ([facility]),Type 2 diabetes mellitus with stage 3a chronic kidney disease, with long-term current use of insulin ([facility]) Inject 2 mg under the skin once a week. 9 mL 3 10/01/2023 Active traZODone HCl 100 MG Oral Tablet (Desyrel) Take 1 Tablet by mouth at bedtime. 0 Active documented as of this encounter (statuses as of 10/12/2023) Active Problems Problem Noted Date Diagnosed Date [...] eye 09/28/2020 Coronary artery disease invo lving [place] coronary artery of [place] heart without angina pectoris 12/16/2019 Last Assessment [...] as of this encounter (statuses as of 10/12/2023) Resolved Problems Problem Noted Date Diagnosed Date [...] 12/21/2016 Diabetes mellitus 01/05/2014 12/21/2016 LEYVA RESEARCH OTHER*[id number] 01/05/2014 12/21/2016 Axillary pain 11/03/2013 12/21/2016 Obesity, [...] 12/21/2016 FOLLOWING SURGERY, UNSPECIFI ED ([facility] 08/25/2011) 08/26/2011 12/21/2016 ADVANCE DIRECTIVE INFORMATION 04/17/2011 12/21/2016 Overview: Yes, Patient instructed to provide copy of advance directive for provider to review and to be scanned into Electronic Medical Record ADVANCE DIRECTIVE INFORMATION 03/01/2011 12/21/2016 Overview: Yes, Patient instructed to provide copy of advance directive for provider to review and to be scanned into Electronic Medical Record [facility] V710 Clinical Trial*[id number] 12/22/2010 04/14/2011 S/P aortic valve replacement 12/01/2010 08/26/2011 S/P AORTIC VALVE REPLACEMENT - #25 pericardial Hernandez valve 11/01/2010 06/28/2018 Overview: Aortic valve replacement with #25 pericardial Hernandez valve, model 2800TFX, serial number [id number] (Dr. Walker) [facility] V710 Clinical Trial*[id number] 10/18/2010 11/21/2010 Body mass index (BMI) of [...] as of this encounter (statuses as of 10/12/2023) Immunizations Name Administration Dates Next Due COVID-19 mRNA, LNP-s, No Pre serve, 2-Dose Series (Moderna) 10/25/2021,02/16/2021,01/18/2021 HEP A - Hepatitis A (Adult > 18 yrs) 06/07/2018, 12/05/2017 Hepatitis B, 20+ yrs 06/07/2018,01/08/20 18,12/05/2017,06/15,10/27/2013,09/12/2013 Pneumococcal Conjugate Vacci ne, 20-valent ([id number]) 06/22/2023 Pneumococcal Polysaccharide PPV23 (Pneumovax) 01/02/2008 Seasonal [...] encounter Miscellaneous Notes * Telephone Encounter - Angelica Yadav LPN - 10/12/2023 10:55 AM EST Kathya aware and added back onto current med list. * Telephone Encounter - Gregory Rausch MD - 10/12/2023 9:54 AM EST Okay to take as prescribed. * Telephone Encounter - Kristina Kaur MED ASSIST - 10/12/2023 9:52 AM EST Last prescribed by Dr. Rausch on 03/13/23. Disp Refills Start End traZODone HCl 100 MG Oral Tablet (Desyrel) (Discontinued) 90 Tablet 3 03/13/2023 06/21/2023 Sig - Route: TAKE BY MOUTH 1 TABLET NEEDED BEFORE BEDTIME FOR SLEEP. - Oral * Telephone Encounter - Gregory Rausch MD - 10/12/2023 8:36 AM EST Who's name is on the bottle as the prescriber of trazodone. If it's me, then let me know. If it's not me, I would call whoever is prescribing it. * Telephone Encounter - Angelica Yadav LPN - 10/12/2023 7:25 AM EST Just want to clarify, since pt does not have this Trazadone on med list, you will not be filling itfor her in furture? And only take what is on her list currently? In case HH nurse questions further. * Telephone Encounter - Gregory Rausch MD - 10/11/2023 9:45 PM EST Patient should take medication she is prescribed prescribed. * Telephone Encounter - Mireille Sanchez MD - 10/11/2023 4:45 PM EST Defer to PCP who returns to clinic tomorrow * Telephone Encounter - Karina Douglass LPN - 10/11/2023 4:18 PM EST Concerns Kathya DUMONT, Calling from: [facility] Report/Concerns of: Medication Related Symptoms: none Vitals: T 97.7 P 79 RR 18 BP 120/68 SP O2 97 percent room air Lung sounds clear Weight 161.8 Blood sugar 183 Narrative: Kathya calling from [facility] . Patient had trazodone 100 mg in the home. 2 at bedtime. Patient takes when she wants too. We do not have it on her medication list. Current or Historical. There is a level 2 interaction with potassium. Please advise. Call back Kathya with any advice or orders at [phone]. Kathya states patient won't answer her phone. She will only answer texts Please fax new orders to [phone] * Telephone Encounter - Andria Rust OSA - 10/11/2023 4:16 PM EST Reason for patient's call: Medication Questions Caller was transferred to Karina at the nurse line. documented in this encounter Plan of Treatment Upcoming Encounters Date Type Department Care Team (Latest Contact Info) Description 10/15/2023 11:00 AM EST Office Visit Cardiology, [facility] [address] [address] Feli Teague PA-C [address] [place] [address] 10/29/2023 11:30 AM EST Pharmacy Pharmacy, [facility] [address] [address] [address] Pharmacist1, [facility] [address] [facility] [address] 10/30/2023 9:30 AM EST Telemedicine Psychology, [facility] [address], [place] [phone] Anjali Alanis, [facility] [address], [place] [phone] 11/21/2023 9:20 AM EST Office Visit Family Practice [facility] [address] [place] [address] Gregory Rausch MD [address] [place] [address] 12/05/2023 10:39 AM EDT Hospital Encounter [facility], Operating Room [facility] [address] [id number] Ramsey Burnett, DO [address] [address] 12/05/2023 10:39 AM EDT - 12/05/2023 11:32 AM EDT Surgery [facility], Operating Room [facility] [address] [facility] [place] [id number] Ramsey Burnett, DO [address] [address] LEFT EXTRACAPSULAR CATARACT REMOVAL COMPLEX WITH IOL 12/06/2023 8:45 AM EDT Office Visit Ophthalmology, [facility] [address] [facility] [place] [address] Ramsey Burnett, DO [address] [address] 12/13/2023 2:15 PM EDT Office Visit Ophthalmology, [facility] [address] [facility] [place] [address] Ramsey Burnett, DO [address] [address] 01/10/2024 2:00 PM EDT Office Visit Ophthalmology, [facility] [address] [facility] [place] [address] Ramsey Burnett, DO [address] [address] 02/04/2024 10:20 AM EDT Office Visit Family Practice [facility] [address] [facility] [place] [address] Gregory Rausch MD [address] [facility] [place] [address] Scheduled Procedures Name Priority Associated Diagnoses Date/Ti [...] 12/05/2018, 12/05/2017, Additional history exists COVID-19 Vaccine (2022- season) 2023 10/25/2021, 02/16/2021, 01/18/2021 GFR 01/31/2024 08/02/2023, 110 03/2023, 06/28/2023, Additional history exists Albumin/Creatinine Ratio 03/09/2024 023, 12/22/2022, 05/05/2021, Additional history exists HbA1c 03/19/2024 09/18/2023, 110 03/2023, 04/09/2023, Additional history exists TSH 06/06/2024 06/06/2023, 01/23, 12/22/2022, Additional history exists CKD PHOS USE SMARTSET 48147 06/18/202405/26, 06/16/2023, 06/15/2023, Additional history exists CKD HGB USE SMARTSET 37316 07/31/202407/31, 07/31/2023, 06/29/2023, Additional history exists Diabetic Eye Exam 09/13/2024 09/13/2023, , 09/13/2023, Additional history exists B-12 09/18/2024 09/18/2023, 08/24, 2020, Additional history exists COLONOSCOPY-EVERY 3 YRS AGES [...] this encounter Medical Devices Implanted Type Area Mounter Automatic Device Identifier Shelf Expiration Date Model / Serial / Lot Cath Roselia Single Lumen - [id number] Implanted:Qty : 1 on 03/12/2008 at OR [facility] Left: Chest [employer] *DO NOT USE* 07/25/2012 [id number] / / [id number] Valve Tarsha Aortic [id number] - [id number] Implanted:Qty : 1 on 11/01/2010 at OR [facility] N/A: [facility] 05/20/2012 [id number]-[id number] / / [id number] Mesh Soft [id number] - [id number] Implanted:Qty : 1 on 10/10/2019 by Gigi Hendrickson MD at OR [facility] N/A: Abdomen CR BARD : DAVOL [id number] 05/21/2024 [id number] / / [id number] Lens 22.5 Sn60wf - [id number] - [id number] Implanted:Qty : 1 on 09/15/2020 by Cece Roland MD at OR [facility] Right: Eye IVA : SURGICAL [id number] 05/13/2025 SN60 WF.225 / [id number] / [id number] documented as of this encounter Advance [...] the patient have Health Care Power of [place]? No Full Code 10/10/2019 8:40 AM 10/10/2019 [...] patient or by statute hierarchy) Care Teams Content Creation Manager Relationship Specialty Start Date End Date Gregory Raushc MD [address] [place] [address] PCP - General Family Medicine 02/12/20 documented as of this encounter
--- OUTSIDE RECORDS SUMMARY | 2023-10-27 12:09 | External Medical Summary | Summary of Care ---
Author Name Unknown Organization [facility] Address [address] [place] [address] Phone [phone] Care Team Providers Care Plaque Maker Name Role Phone Deon Rausch MD Primary Care Provider [phone] Reason for Visit * Reason Onset Date Comments Medication Refill 10/01/2023 Encounter Details Date Type Department Care Team (Late st Contact Info) Description 10/01/2023 Refill Family Practice [facility] [address] [facility] [place] [address] Deon Rausch MD [address] [facility] [place] [address] Candidal intertrigo; Heart failure, systolic, due to idiopathic cardiomyopathy (HCC); S/P AORTIC VALVE REPLACEMENT - #25 pericardial Cm valve; HTN, goal below 140/80; Dyslipidemia, goal LDL below 70 Allergies Active Allergy Reactions Criticality Noted Date Comments Adhesive Tape 07/02/2017 Can tolerate band-aids Glycerin Other (Please comment) 03/12/2008 Topical agents with glycein-burning & itching Lactose 12/09/2014 Dairy - gas Lisinopril Cough 01/21/2010 Monosodium Glutamate Edema Other 03/12/2008 Hands and feet Penicillins Rash 11/14/2007 documented as of this encounter (statuses as of 10/02/2023) Medications Medication Sig Dispensed Refills Start Date [...] ER 10 MEQ Oral Tablet Extended ReleaseIndications:Ac [place] on chronic heart failure with preserved ejection fraction (HFpEF) ([facility]) Take 1 Tablet by mouth in [...] goal of less than 7.0% ([facility]),Type 2 diabetes mellitus with stage 3a chronic kidney disease, with long-term current use of insulin ([facility]) Inject 30 Units under the skin at bedtime. 6 mL 2 3 Active BD Pen Needle Short U/F 31G X 8 MMIndications:Type 2 diabetes mellitus with hemoglobin A1c goal of less than 7.0% ([facility]),Type 2 diabetes mellitus with stage 3a chronic kidney disease, with long-term current use of insulin ([facility]) Use with insulin 4 times daily 400 Each 3 3 Active Gaviscon 80-14.2 MG Oral Tablet Chewable (Alum Hydroxide-Mag Trisilicate) Take by mouth as needed. 0 Active Atorvastatin Calcium 40 MG Oral Tablet (Lipitor)Indications: Heart failure, systolic, due to idiopathic cardiomyopathy ([facility]),S/P aortic valve replacement,HTN, goal below 140/80,Dyslipidemia, [...] goal of less than 7.0% ([facility]) Use up to 50 units per [...] daily. 400 g 3 4 Active Nystatin 059772 UNIT/GM External Powder (Nystop)Indications:C andidal intertrigo Apply [...] goal of less than 7.0% ([facility]),Type 2 diabetes mellitus with diabetic mononeuropathy, with long-term current use of insulin ([facility]),Type 2 diabetes mellitus with both eyes affected by mild nonproliferative retinopathy and macular edema, with long-term current use of insulin ([facility]),Type 2 diabetes mellitus with stage 3a chronic kidney disease, with long-term current use of insulin ([facility]) Inject 2 mg under the skin once a week. 9 mL 3 4 Active Ammonium Lactate 12 % External Lotion (Lac-Hydrin) Apply to both feet once daily. 400 g 3 3 10/01/19 24 Discontinu ed(Refill) metOLazone 2.5 MG Oral Tablet (Zaroxolyn)Indication s:Acute on chronic heart failure with preserved ejection fraction (HFpEF) ([facility]) One tablet one morning twice per week (Sunday and Sunday), 30 minutes prior to torsemide dose 24 Tablet 3 3 10/01/19 24 Discontinu ed(Refill) Nystatin 371169 UNIT/GM External Powder (Nystop)Indications:C andidal intertrigo APPLY TOPICALLY TO AFFECTED AREA 3 TIMES A DAY. APPLY TO AFFECTED AREAS 60 g 1 3 10/01/19 24 Discontinu ed(Refill) Aquaphor External Ointment Apply topically to affected area as needed for Dry Skin. Apply to face 420 g 0 3 10/01/19 24 Discontinu ed(Refill) Gabapentin 100 MG Oral Capsule (Neurontin)Indication s:Polyneuropathy associated with underlying disease ([facility]) Take 1 Capsule by mouth in the morning and 1 Capsule at noon and 1 Capsule before bedtime. 90 Capsule 0 3 10/01/19 24 Discontinu ed(Refill) documented as of this encounter (statuses as of 10/02/2023) Active Problems Problem Noted Date Diagnosed Date [...] eye 09/28/2020 Coronary artery disease invo lving [place] coronary artery of [place] heart without angina pectoris 12/16/2019 Last Assessment [...] as of this encounter (statuses as of 10/02/2023) Resolved Problems Problem Noted Date Diagnosed Date [...] weekly -MTM appointment scheduled Nocturnal hypoxemia 12/28/2017 10/05/20 18 Recurrent major depressive d isorder, in [...] mgmt 02/19/2014 12/21/2016 Diabetes mellitus 01/05/2014 12/21/2016 FRONT [place]Y[employer] RESEARCH OTHER*[id number] 01/05/2014 12/21/2016 Axillary pain 11/03/2013 12/21/2016 Obesity, [...] cath 09/201008/26/2011 12/21/2016 FOLLOWING SURGERY, UNSPECIFI ED ([facility] 08/25/2011) 08/26/2011 12/21/2016 ADVANCE DIRECTIVE INFORMATION 04/17/2011 12/21/2016 Overview: Yes, Patient instructed to provide copy of advance directive for provider to review and to be scanned into Electronic Medical Record ADVANCE DIRECTIVE INFORMATION 03/01/2011 12/21/2016 Overview: Yes, Patient instructed to provide copy of advance directive for provider to review and to be scanned into Electronic Medical Record [facility] V710 Clinical Trial*[id number] 12/22/2010 04/14/2011 S/P aortic valve replacement 12/01/2010 08/26/2011 S/P AORTIC VALVE REPLACEMENT - #25 pericardial Mc valve 11/01/2010 06/28/2018 Overview: Aortic valve replacement with #25 pericardial Mc valve, model 2800TFX, serial number [id number] (Dr. Walker) [place] V710 Clinical Trial*[id number] 10/18/2010 11/21/2010 Body mass index (BMI) of [...] as of this encounter (statuses as of 10/02/2023) Immunizations Name Administration Dates Next Due COVID-19 mRNA, LNP-s, No Pre serve, 2-Dose Series (Moderna) 10/25/2021,02/16/2021,01/18/2021 HEP A - Hepatitis A (Adult > 18 yrs) 06/07/2018, 12/05/2017 Hepatitis B, 20+ yrs 06/07/2018,01/08/20 18,12/05/2017,06/15,10/27/2013,09/12/2013 Pneumococcal Conjugate Vacci ne, 20-valent ([id number]) 06/22/2023 Pneumococcal Polysaccharide PPV23 (Pneumovax) 01/02/2008 Seasonal [...] Telephone Encounter - Deon Rausch MD - 10/02/2023 5:16 PM ESTSigned Prescriptions: Disp Refills Ammonium Lactate 12 % External Lotion (Lac*400 g 3 Sig: Apply to both feet once daily. Authorizing Provider: DEON RAUSCH Nystatin 524197 UNIT/GM External Powder (N*60 g 1 Sig: Apply topically to affected area 3 times a day. Apply to affected areas Authorizing Provider: DEON RAUSCH Aquaphor External Ointment 420 g 0 Sig: Apply topically to affected area as needed for Dry Skin. Apply to face Authorizing Provider: DEON RAUSCH Refused Prescriptions: Disp Refills Clopidogrel Bisulfate 75 MG Oral Tablet (p*90 Tab*2 Sig: Take 1 Tablet by mouth in the morning. Refused By: BRAIN ORTEGA Reason for Refusal: Too soon Atorvastatin Calcium 40 MG Oral Tablet (Li*90 Tab*1 Refused By: BRAIN ORTEGA Reason for Refusal: Too soon Metoprolol Tartrate 25 MG Oral Tablet (Lop*60 Tab*5 Sig: Take 1 Tablet by mouth in the morning and 1 Tablet before bedtime. Refused By: BRAIN ORTEGA Reason for Refusal: Too soon * Telephone Encounter - Brain Ortega, [facility] - 10/02/2023 12:38 PM ESTPending Prescriptions: Disp Refills Ammonium Lactate 12 % External Lotion (Lac*400 g 3 Sig: Apply to both feet once daily. Nystatin 856877 UNIT/GM External Powder (N*60 g 1 Sig: Apply topically to affected area 3 times a day. Apply to affected areas Aquaphor External Ointment 420 g 0 Sig: Apply topically to affected area as needed for Dry Skin. Apply to face Refused Prescriptions: Disp Refills Clopidogrel Bisulfate 75 MG Oral Tablet (p*90 Tab*2 Sig: Take 1 Tablet by mouth in the morning. Refused By: BRAIN ORTEGA Reason for Refusal: Too soon Atorvastatin Calcium 40 MG Oral Tablet (Li*90 Tab*1 Refused By: BRAIN ORTEGA Reason for Refusal: Too soon Metoprolol Tartrate 25 MG Oral Table t (Lop*60 Tab*5 Sig: Take 1 Tablet by mouth in the morning and 1 Tablet before bedtime. Refused By: BRAIN ORTEGA Reason for Refusal: Too soon * Telephone Encounter - Brain Ortega [facility] - 10/02/2023 12:34 PM EST [facility] is currently not authorized to approve refills for the pended medication(s) per refill protocol. Please approve if appropriate. Pending Prescriptions: Disp Refills Ammonium Lactate 12 % External Lotion (La*400 g 3 Sig: Apply to both feet once daily. Nystatin 878712 UNIT/GM External Powder (*60 g 1 Sig: Apply topically to affected area 3 times a day. Apply to affected areas Aquaphor External Ointment 420 g 0 Sig: Apply topically to affected area as needed for Dry Skin. Apply to face Refused Prescriptions: Disp Refills Clopidogrel Bisulfate 75 MG Oral Tablet (p*90 Tab*2 Sig: Take 1 Tablet by mouth in the morning. Refused By: BRAIN ORTEGA Reason for Refusal: Too soon Atorvastatin Calcium 40 MG Oral Tablet (Li*90 Tab*1 Refused By: BRAIN ORTEGA Reason for Refusal: Too soon Metoprolol Tartrate 25 MG Oral Tablet (Lop*60 Tab*5 Sig: Take 1 Tablet by mouth in the morning and 1 Tablet before bedtime. Refused By: BRAIN ORTEGA Reason for Refusal: Too soon Last Visit: 07/31/2023 (in office), 09/12/2023 (telemedicine) Next Visit: 11/21/2023 If no future appointments scheduled, and last appointment is greater than a year ago, please schedule patient for a follow-up appointment Last date the medication was ordered: 11/10/22, 08/20/23, 08/30/23 Pharmacy: [facility] [id number] [place] [address] Is this request for a controlled substance? No Urine Drug Screen:No results found. However, due to the size of the patient record, not all encounters were searched. Please check Results Review for a complete set of results. Patient Phone Numbers Labs: Lab Results Component Value Date/Time CREAT 0.80 08/02/2023 12:00 AM CREAT 1.2 (H) 09/07/2020 10:58 AM POTASSIUM 3.0 (A) 08/02/2023 12:00 AM POTASSIUM 4.8 09/07/2020 10:58 AM TSH 0.01 (L) 06/06/2023 08:30 PM TSH 2.41 12/09/2019 01:49 PM LDLCALC 32 08/30/2018 04:00 PM LDLDIRECT 52 04/09/2023 01:44 PM LDLDIRECT 30 09/07/2020 10:58 AM ALT 9 (L) 07/31/2023 11:34 AM ALT 20 09/07/2020 10:58 AM HGBA1C 7.5 (H) 09/18/2023 09:32 AM HGBA1C 8.3 (H) 12/09/2019 01:49 PM Thank you, Brain Ortega, PharmD Clinical Pharmacist [facility] ([facility]) (formerly Telepharmacy) [phone] 10/02/2023, 12:37 PM documented in this encounter Plan of Treatment Upcoming Encounters Date Type Department Care Team (Latest Contact Info) Description 10/08/2023 2:00 PM EST Telemedicine Pharmacy, [facility] [address] [address] Pharmacist1, [facility] [address] [address] 10/12/2023 10:00 AM EST Home Visit [facility], [facility] [address] [place] [address] Jaycee Sorto, RN [address] [place] [address] 10/15/2023 11:00 AM EST Office Visit Cardiology, [facility] [address] [place] [address] Feli Teague, PALeoC [address] [place] [address] 10/30/2023 9:30 AM EST Telemedicine [facility] [place] [address] [place] [address] Anjali Alanis, [facility] [address], [place] [id number] 11/21/2023 9:20 AM EST Office Visit Family Practice [facility] [address] [place] [address] Deon Rausch MD [address] [place] [address] 12/05/2023 10:39 AM EDT Hospital Encounter [facility], Operating Room [facility] [address] [place] [phone] Ramsey Burnett, DO [address] [place] [address] 12/05/2023 10:39 AM EDT - 12/05/2023 11:32 AM EDT Surgery OR [facility], Operating Room [facility] [address] [place] [phone] Ramsey Burnett, DO [address] [place] [address] LEFT EXTRACAPSULAR CATARACT REMOVAL COMPLEX WITH IOL 12/06/2023 8:45 AM EDT Office Visit Ophthalmology, [facility] [address] [place] [address] Ramsey Burnett, DO [address] [place] [address] 12/13/2023 2:15 PM EDT Office Visit Ophthalmology, [facility] [address] [place] [address] Ramsey Burnett, DO [address] [place] [address] 01/10/2024 2:00 PM EDT Office Visit Ophthalmology, [facility] [address] [place] [address] Ramsey Burnett, DO [address] [facility] [place] [address] 02/04/2024 10:20 AM EDT Office Visit Family Practice [facility] [address] [place] [address] Deon Rausch MD [address] [place] [address] Scheduled Procedures Name Priority Associated Diagnoses Date/Ti [...] 03/2023, 06/28/2023, Additional history exists Albumin/Creatinine Ratio 03/09/20242 023, 12/22/2022, 05/05/2021, Additional history exists HbA1c 03/19/2024 09/18/2023, 03/2023, 04/09/2023, Additional history exists TSH 06/06/2024 06/06/2023, 01/23, 12/22/2022, Additional history exists CKD PHOS USE SMARTSET 55374 06/18/202405/26, 06/16/2023, 06/15/2023, Additional history exists CKD HGB USE SMARTSET 04719 07/31/202407/31, 07/31/2023, 06/29/2023, Additional history exists Diabetic [...] this encounter Medical Devices Implanted Type Area Casing Tester Device Identifier Shelf Expiration Date Model / Serial / Lot Cath Roselia Single Lumen - [id number] Implanted:Qty : 1 on 03/12/2008 at OR [facility] Left: Chest [facility] *DO NOT USE* 07/25/2012 [id number] / / [id number] Valve Tarsha Aortic [id number] - [id number] Implanted:Qty : 1 on 11/01/2010 at OR [facility] N/A: Heart [employer] 05/20/2012 2800TFX-25 / / [id number] Mesh Soft [id number] - [id number] Implanted:Qty : 1 on 10/10/2019 by Gigi Hendrickson [place] [facility] [place] N/A: Abdomen CR BARD : DAVOL [id number] 05/21/2024 [id number] / / [id number] Lens 22.5 Sn60wf - [id number] - [id number] Implanted:Qty : 1 on 09/15/2020 by Cece Roland MD at OR [facility] Right: Eye IVA : SURGICAL [id number] 05/13/2025 SN60 WF.225 / [id number] / [id number] documented as of this encounter Visit Diagnoses Diagnosis Candidal intertrigo Candidiasis of skin and nails Heart failure, systolic, due to idiopathic cardiomyopathy (HCC) Unspecified systolic heart failure S/P AORTIC VALVE REPLACEMENT - #25 pericardial Mc valve Heart valve replaced by other means HTN, goal below 140/80 Unspecified essential hypertension Dyslipidemia, goal LDL below 70 Other and unspecified hyperlipidemia Cataract Unspecified cataract documented in this encounter [...] the patient have Health Care Power of Dean? No Full Code 10/10/2019 8:40 AM 10/10/2019 5:53 PM This order reflects the patients wishes and were consensually agreed upon. Full Code 11/06/2017 4:55 PM 11/07/2017 7:14 PM This order reflects the patients wishes and were consensually agreed upon. Healthcare Agents on File Name Relationship Healthcare Agent Relationshi p Communication Gigi Rose Adult Child [facility] Care Repr esentative (appointed verbally by patient or by statute hierarchy) Care Teams Plaque Maker Relationship Specialty Start Date End Date Deon Rausch MD [address] [place] [address] PCP - General Family Medicine 02/12/20 documented as of this encounter
--- OUTSIDE RECORDS SUMMARY | 2023-10-27 12:09 | External Medical Summary ---
Author Name Unknown Address Unknown Organization K01:[facility] - [address] [place] [address] Laboratory Report Ordering Provider Test Date Status VANDANA SALAZAR 10/15/2023 11:56:52 Final Observation Date Value Abnormality Reference (Units ) Status TSH 10/15/2023 11:56:52 2.83 0.27-4.20 (uIU/mL) Final Performing Location [facility] - [address] [place] [address]
--- OUTSIDE RECORDS SUMMARY | 2023-10-27 12:09 | External Medical Summary | Summary of Care ---
Author Name Unknown Organization [facility] Address [address] [place] [address] Phone [phone] Care Team Providers Care Door Cutter Name Role Phone Gregory Rausch MD Primary Care Provider [phone] Reason for Visit * Reason Onset Date Comments Medication Refill 10/01/2023 Encounter Details Date Type Department Care Team (Late st Contact Info) Description 10/01/2023 Refill Cardiology, [facility] [address] [place] [address] Feli Teague PA-C [address] [place] [address] Acute on chronic heart failure with preserved ejection fraction (HFpEF) ([facility]) Allergies Active Allergy Reactions Criticality [...] hypoglycemia E11.9 100 Tab 3 1 Active PymetricsTouch Verio w/Device Kit Use up to 4 times a day E11.9 1 Kit 0 2 Active PymetricsTouch Delica Lancets 33G TEST 4 TIMES DAILY DIRECTED, E11.9 400 Each 3 2 Active Melatonin 10 MG Oral CapsuleIndications:sl eep Take 1 Capsule by mouth at bedtime. 0 Active Ammonium Lactate 12 % External Lotion (Lac-Hydrin) Apply to both feet once daily. 400 g 3 3 Active Magnesium Oxide 400 (240 Mg) MG [...] hemoglobin A1c goal of less than 7.0% ([facility]) Use as directed. Use 1 sensor every 10 days E 11.9 9 Each 3 3 Active Dexcom G6 TransmitterIndication s:Type 2 diabetes mellitus with hemoglobin A1c goal of less than 7.0% ([facility]) Use as directed. Use 1 [...] ER 10 MEQ Oral Tablet Extended ReleaseIndications:Ac [place] on chronic heart failure with preserved ejection fraction (HFpEF) ([facility]) Take 1 Tablet by mouth [...] hemoglobin A1c goal of less than 7.0% ([facility]),Type 2 diabetes mellitus with stage 3a chronic kidney disease, with long-term current use of insulin ([facility]) Inject 30 Units under the skin at bedtime. 6 mL 2 3 Active BD Pen Needle Short U/F 31G X 8 MMIndications:Type 2 diabetes mellitus with hemoglobin A1c goal of less than 7.0% ([facility]),Type 2 diabetes mellitus with stage 3a chronic kidney disease, with long-term current use of insulin ([facility]) Use with insulin 4 times daily 400 Each 3 3 Active Gaviscon 80-14.2 MG Oral Tablet Chewable (Alum Hydroxide-Mag Trisilicate) Take by mouth as needed. 0 Active Nystatin 524209 UNIT/GM External Powder (Nystop)Indications:C andidal intertrigo APPLY TOPICALLY TO AFFECTED AREA 3 TIMES A DAY. APPLY TO AFFECTED AREAS 60 g 1 3 Active Atorvastatin Calcium 40 MG Oral Tablet (Lipitor)Indications: Heart failure, systolic, due to idiopathic cardiomyopathy ([facility]),S/P aortic valve replacement,HTN, goal below 140/80,Dyslipidemia, goal LDL below 70 TAKE 1 TABLET BY MOUTH DAILY. TO PREVENT HEART ATTACK/STROKE, PROTECT KIDNEY, AND CHOLESTEROL 90 Tablet 1 3 Active Meclizine HCl 25 MG Oral Tablet (Antivert)Indications :Muscle tension headache TAKE 2 TABLETS BY MOUTH TWICE A DAY 360 Tablet 3 3 Active Aquaphor External Ointment Apply topically to affected area as needed for Dry Skin. Apply to face 420 g 0 3 Active metFORMIN HCl 1000 MG Oral Tablet (Glucophage) Take 1 Tablet by mouth 2 times a day with morning and evening meals. 180 Tablet 3 3 Active Torsemide 10 MG Oral Tablet (Demadex) Take 1 Tablet by mouth in the morning. 0 Active Insulin Aspart 100 UNIT/ML Injection Solution (NovoLOG)Indications: Type 2 diabetes mellitus with hemoglobin A1c goal of less than 7.0% ([facility]) Use up to 50 units per day in Omnipod. 5 Each 3 3 Active Gabapentin 100 MG Oral Capsule (Neurontin)Indication s:Polyneuropathy associated with underlying disease ([facility]) Take 1 Capsule by mouth in the morning and 1 Capsule at noon and 1 Capsule before bedtime. 90 Capsule 0 3 Active BD Insulin Syringe 25G X [...] heart failure with preserved ejection fraction (HFpEF) ([facility]) One tablet one morning twice per week (Sunday and Sunday), 30 minutes prior to torsemide dose 30 Tablet 3 4 Active Ozempic (2 MG/DOSE) 8 MG/3ML Subcutaneous Solution Pen-injector (Semaglutide (2 MG/DOSE))Indications: Type 2 diabetes mellitus with hemoglobin A1c goal of less than 7.0% ([facility]),Type 2 diabetes mellitus with diabetic mononeuropathy, with long-term current use of insulin ([facility]),Type 2 diabetes mellitus with both eyes affected by mild nonproliferative retinopathy and macular edema, with long-term current use of insulin ([facility]),Type 2 diabetes mellitus with stage 3a chronic kidney disease, with long-term current use of insulin ([facility]) Inject 2 mg under the skin once a week. 9 mL 3 4 Active metOLazone 2.5 MG Oral Tablet (Zaroxolyn)Indication s:Acute on chronic heart failure with preserved ejection fraction (HFpEF) ([facility]) One tablet one morning twice per week (Sunday and Sunday), 30 minutes prior to torsemide dose 24 Tablet 3 3 10/01/19 24 Discontinu ed(Refill) documented as [...] 12/21/2016 Diabetes mellitus 01/05/2014 12/21/2016 LEYVA RESEARCH OTHER*[id number] 01/05/2014 12/21/2016 Axillary pain 11/03/2013 12/21/2016 Obesity, [...] cath 09/201008/26/2011 12/21/2016 FOLLOWING SURGERY, UNSPECIFI ED ([facility]SO 08/25/2011) 08/26/2011 12/21/2016 ADVANCE DIRECTIVE INFORMATION 04/17/2011 12/21/2016 Overview: Yes, Patient instructed to provide copy of advance directive for provider to review and to be scanned into Electronic Medical Record ADVANCE DIRECTIVE INFORMATION 03/01/2011 12/21/2016 Overview: Yes, Patient instructed to provide copy of advance directive for provider to review and to be scanned into Electronic Medical Record [facility] V710 Clinical Trial*[id number] 12/22/2010 04/14/2011 S/P aortic valve replacement 12/01/2010 08/26/2011 S/P AORTIC VALVE REPLACEMENT - #25 pericardial Cm valve 11/01/2010 06/28/2018 Overview: Aortic valve replacement with #25 pericardial Mc valve, model 2800TFX, serial number [id number] (Dr. Walker) [facility] V710 Clinical Trial*[id number] 10/18/2010 11/21/2010 Body mass index (BMI) of [...] 06/07/2018,01/08/20 18,12/05/2017,06/15,10/27/2013,09/12/2013 Pneumococcal Conjugate Vacci ne, 20-valent ([id number]) 06/22/2023 Pneumococcal Polysaccharide PPV23 (Pneumovax) 01/02/2008 Seasonal [...] encounter Miscellaneous Notes * Telephone Encounter - Ama Russ DO - 10/02/2023 1:46 PM ESTSigned Prescriptions: Disp Refills metOLazone 2.5 MG Oral Tablet (Zaroxolyn) 30 Tab*3 Sig: One tablet one morning twice per week (Sunday and Sunday), 30 minutes prior to torsemide dose Authorizing Provider: AMA RUSS * Telephone Encounter - Whitney Ramirez COT - 10/02/2023 11:07 AM ESTPending Prescriptions: Disp Refills metOLazone 2.5 MG Oral Tablet (Zaroxolyn) 30 Tab*3 Sig: One tablet one morning twice per week (Sunday and Sunday), 30 minutes prior to torsemide dose * Telephone Encounter - Whitney Ramirez COT - 10/02/2023 11:07 AM EST Did you pend patient's preferred pharmacy and medication before forwarding?yes Pharmacy: [facility] [id number] [place] [address] Pending Prescriptions: Disp Refills metOLazone 2.5 MG Oral Tablet (Zaroxolyn) 30 Tab*3 Sig: One tablet one morning twice per week (Sunday and Sunday), 30 minutes prior to torsemide dose Last Visit: 03/15/2023 (in office), 02/12/2020 (telemedicine) Next Visit: 10/15/2023 If no future appointments scheduled, and last appointment is greater than a year ago, please schedule patient for a follow-up appointment Last date the medication was ordered: 03-12-2023 Is this request for a controlled substance?No [...] AM HGBA1C 8.3 (H) 12/09/2019 01:49 PM documented in this encounter Plan of Treatment Upcoming Encounters Date Type Department Care Team (Latest Contact Info) Description 10/08/2023 2:00 PM EST Telemedicine Pharmacy, [facility] [address] [facility] [place] [address] Pharmacist1, [facility] [address] [facility] [place] [address] 10/12/2023 10:00 AM EST [facility] Visit [facility] [address] [place] [address] Jaycee Sorto RN [address] [place] [address] 10/15/2023 11:00 AM EST Office Visit Cardiology, [facility] [address] [place] [address] Feli Teague, PABari [address] [place] [address] 10/30/2023 9:30 AM EST Telemedicine Psychology, [place] [address] [place] [address] Anjali Alanis [facility] [address] [place] [address] 11/21/2023 9:20 AM EST Office Visit Family Practice [facility] [address] [place] [address] Gregory Rausch MD [address] [place] [address] 12/05/2023 10:39 AM EDT Hospital Encounter OR [facility], Operating Room [facility] [address] [place] [address] Ramsey Burnett, DO [address] [address] 12/05/2023 10:39 AM EDT - 12/05/2023 11:32 AM EDT Surgery [facility], [facility] [address] [place] [address] Ramsey Burnett, DO [address] [place] [address] LEFT EXTRACAPSULAR CATARACT REMOVAL COMPLEX WITH IOL 12/06/2023 8:45 AM EDT Office Visit Ophthalmology, [facility] [address] [facility] [place] [address] Ramsey Burnett, DO [address] [place] [address] 12/13/2023 2:15 PM EDT Office Visit Ophthalmology, [facility] [address] [facility] [place] [address] Ramsey Burnett, DO [address] [place] [address] 01/10/2024 2:00 PM EDT Office Visit Ophthalmology, [facility] [address] [facility] [place] [address] Ramsey Burnett, DO [address] [place] [address] 02/04/2024 10:20 AM EDT Office Visit Family Practice [facility] [address] [facility] [place] [address] Gregory Rausch MD [address] [place] [address] Scheduled Procedures Name Priority Associated Diagnoses Date/Ti [...] 2023 10/25/2021, 02/16/2021, 01/18/2021 GFR 01/31/2024 08/02/2023, 0 03/2023, 06/28/2023, Additional history exists Albumin/Creatinine Ratio 03/09/2024 023, 12/22/2022, 05/05/2021, Additional history exists HbA1c 03/19/2024 09/18/2023, 110 03/2023, 04/09/2023, Additional history exists TSH 06/06/2024 06/06/2023, 01/23, 12/22/2022, Additional history exists CKD PHOS USE SMARTSET 88418 06/18/202405/26, 06/16/2023, 06/15/2023, Additional history exists CKD HGB USE SMARTSET 96371 07/31/202407/31, 07/31/2023, 06/29/2023, Additional history exists Diabetic [...] this encounter Medical Devices Implanted Type Area Ride Operator Device Identifier Shelf Expiration Date Model / Serial / Lot Cath Roselia Single Lumen - [id number] Implanted:Qty : 1 on 03/12/2008 at OR [facility] Left: Chest [employer] *DO NOT USE* 07/25/2012 21-4053-24 / / [id number] Valve Tarsha Aortic [id number] - [id number] Implanted:Qty : 1 on 11/01/2010 at OR [facility] N/A: Heart MC LIFESCIRight Relevance DANIEL 05/20/2012 2800TFX-25 / / [id number] Mesh Soft [id number] - [id number] Implanted:Qty : 1 on 10/10/2019 by Gigi Hendrickson MD at [place] [facility] [place] N/A: Abdomen CR BARD : DAVOL [id number] 05/21/2024 [id number] / / [id number] Lens 22.5 Sn60wf - [id number] - [id number] Implanted:Qty : 1 on 09/15/2020 by Renaldo Cook, Cece Acosta MD at OR [facility] Right: Eye IVA : SURGICAL [id number] 05/13/2025 SN60 WF.225 / [id number] documented as of this encounter Visit Diagnoses Diagnosis Acute on chronic heart failure with preserved ejection fraction (HFpEF) (HCC) Cataract Unspecified cataract documented in this [...] the patient have Health Care Power of Tobacco Cloth Reclaimer? No Full Code 10/10/2019 8:40 AM 10/10/2019 [...] patient or by statute hierarchy) Care Teams Door Cutter Relationship Specialty Start Date End Date Gregory Rausch MD [address] [place] [address] PCP - General Family Medicine 02/12/20 documented as of this encounter
--- OUTSIDE RECORDS SUMMARY | 2023-10-27 12:09 | External Medical Summary ---
Author Name Unknown Address Unknown Organization K01:[facility] [place] [address] [place] [address] Laboratory Report Ordering Provider Test Date Status VANDANA SALAZAR 10/15/2023 11:56:52 Final Observation Date Value Abnormality Reference (Units ) Status Magnesium 10/15/2023 11:56:52 2.1 1.5-2.6 (m g/dL) Final Performing Location LAB[facility]ATORY [facility] - [address] [place] [address]
--- OUTSIDE RECORDS SUMMARY | 2023-10-27 12:09 | External Medical Summary | Summary of Care ---
Author Name Unknown Organization [facility] Address [address] [place] [address] Phone [phone] Care Team Providers Care Emergency Management System Director Name Role Phone Gregory Rausch MD Primary Care Provider [phone] Encounter Details Date Type Department Care Team (Late st Contact Info) Description 10/04/2023 Population Health External Data Unspecified Department Allergies Active Allergy Reactions Criticality Noted Date Comments Adhesive Tape 07/02/2017 Can tolerate band-aids Glycerin Other (Please comment) 03/12/2008 Topical agents with glycein-burning & itching Lactose 12/09/2014 Dairy - gas Lisinopril Cough 01/21/2010 Monosodium Glutamate Edema Other 03/12/2008 Hands and feet Penicillins Rash 11/14/2007 documented as of this encounter (statuses as of 10/08/2023) Medications Medication Sig Dispensed Refills Start Date [...] goal of less than 7.0% ([facility]) Use as directed. Use 1 sensor every 10 days E 11.9 9 Each 3 01/16/2023 Active Dexcom G6 TransmitterIndication s:Type 2 diabetes mellitus with hemoglobin A1c goal of less than 7.0% ([facility]) Use as directed. Use 1 transmitter [...] ER 10 MEQ Oral Tablet Extended ReleaseIndications:Ac [place] on chronic heart failure with preserved ejection fraction (HFpEF) ([facility]) Take 1 Tablet by mouth in [...] goal of less than 7.0% ([facility]),Type 2 diabetes mellitus with stage 3a chronic kidney disease, with long-term current use of insulin ([facility]) Inject 30 Units under the skin at bedtime. 6 mL 2 07/31/2023 Active BD Pen Needle Short U/F 31G X 8 MMIndications:Type 2 diabetes mellitus with hemoglobin A1c goal of less than 7.0% ([facility]),Type 2 diabetes mellitus with stage 3a chronic kidney disease, with long-term current use of insulin ([facility]) Use with insulin 4 times daily 400 Each 3 07/31/2023 Active Gaviscon 80-14.2 MG Oral Tablet Chewable (Alum Hydroxide-Mag Trisilicate) Take by mouth as needed. 0 Active Atorvastatin Calcium 40 MG Oral Tablet (Lipitor)Indications: Heart failure, systolic, due to idiopathic cardiomyopathy ([facility]),S/P aortic valve replacement,HTN, goal below 140/80,Dyslipidemia, [...] goal of less than 7.0% ([facility]) Use up to 50 units per [...] with preserved ejection fraction (HFpEF) ([facility]) One tablet one morning twice per week (Sunday and Sunday), 30 minutes prior to torsemide dose 30 Tablet 3 10/02/2023 Active Gabapentin 100 MG Oral Capsule (Neurontin)Indication s:Polyneuropathy associated with underlying disease ([facility]) Take 1 Capsule by mouth in the morning and 1 Capsule at noon and 1 Capsule before bedtime. 90 Capsule 0 10/02/2023 Active Ammonium Lactate 12 % External Lotion (Lac-Hydrin) Apply to both feet once daily. 400 g 10/02/2023 Active Nystatin 237837 UNIT/GM External Powder (Nystop)Indications:C andidal intertrigo Apply [...] goal of less than 7.0% ([facility]),Type 2 diabetes mellitus with diabetic mononeuropathy, with long-term current use of insulin ([facility]),Type 2 diabetes mellitus with both eyes affected by mild nonproliferative retinopathy and macular edema, with long-term current use of insulin ([facility]),Type 2 diabetes mellitus with stage 3a chronic kidney disease, with long-term current use of insulin ([facility]) Inject 2 mg under the skin once a week. 9 mL 10/01/2023 Active documented as of this encounter (statuses as of 10/08/2023) Active Problems Problem Noted Date Diagnosed Date [...] eye 09/28/2020 Coronary artery disease invo lving tazlina coronary artery of tazlina heart without angina pectoris 12/16/2019 Last Assessment [...] as of this encounter (statuses as of 10/08/2023) Resolved Problems Problem Noted Date Diagnosed Date [...] Muscle tension headache 02/01/201707/26 Depression with anxiety 12/21/2016/0 01/2018 Ventral hernia without obstr uction or [...] 12/21/2016 Diabetes mellitus 01/05/2014 12/21/2016 LEYVA RESEARCH OTHER*[id number] 01/05/2014 12/21/2016 Axillary pain 11/03/2013 12/21/2016 Obesity, [...] cath 09/201008/26/2011 12/21/2016 FOLLOWING SURGERY, UNSPECIFI ED ([facility]SO 08/25/2011) 08/26/2011 12/21/2016 ADVANCE DIRECTIVE INFORMATION 04/17/2011 12/21/2016 Overview: Yes, Patient instructed to provide copy of advance directive for provider to review and to be scanned into Electronic Medical Record ADVANCE DIRECTIVE INFORMATION 03/01/2011 12/21/2016 Overview: Yes, Patient instructed to provide copy of advance directive for provider to review and to be scanned into Electronic Medical Record [facility] V710 Clinical Trial*[id number] 12/22/2010 04/14/2011 S/P aortic valve replacement 12/01/2010 08/26/2011 S/P AORTIC VALVE REPLACEMENT - #25 pericardial Mc valve 11/01/2010 06/28/2018 Overview: Aortic valve replacement with #25 pericardial Mc valve, model 2800TFX, serial number [id number] (Dr. Walker) [facility] V710 Clinical Trial*[id number] 10/18/2010 11/21/2010 Body mass index (BMI) of [...] as of this encounter (statuses as of 10/08/2023) Immunizations Name Administration Dates Next Due COVID-19 mRNA, LNP-s, No Pre serve, 2-Dose Series (Moderna) 10/25/2021,02/16/2021,01/18/2021 HEP A - Hepatitis A (Adult > 18 yrs) 06/07/2018, 12/05/2017 Hepatitis B, 20+ yrs 06/07/2018,01/08/20 18,12/05/2017,06/15,10/27/2013,09/12/2013 Pneumococcal Conjugate Vacci ne, 20-valent ([id number]) 06/22/2023 Pneumococcal Polysaccharide PPV23 (Pneumovax) 01/02/2008 Seasonal [...] Department Care Team (Latest Contact Info) Description 10/12/2023 10:00 AM EST [facility] [address] [place] [address] Jaycee Sorto, RN [address] [address] 10/15/2023 11:00 AM EST Office Visit Cardiology, [facility] [address] [address] Feli Teague PA-C [address] [address] 10/29/2023 11:30 AM EST Pharmacy Pharm[facility], [facility] [address] [facility] [address] Pharmacist1, [facility] [address] [place] [address] 10/30/2023 9:30 AM EST Telemedicine Psychology, [place] [address] [place] [address] Anjali Alanis [facility] [address] [place], [place] [address] 11/21/2023 9:20 AM EST Office Visit Family Practice [facility] [address] [place] [address] Gregory Rausch MD [address] [address] 12/05/2023 10:39 AM EDT Hospital Encounter [facility], Operating Room [facility] [address] [place] [phone] Ramsey Burnett, DO [address] [address] 12/05/2023 10:39 AM EDT - 12/05/2023 11:32 AM EDT Surgery OR [facility], Operating Room [facility] [address] [facility] [place] [phone] Ramsey Burnett, DO [address] [address] LEFT EXTRACAPSULAR CATARACT REMOVAL COMPLEX WITH IOL 12/06/2023 8:45 AM EDT Office Visit Ophthalmology, [facility] [address] [facility] [place] [address] Ramsey Burnett, DO [address] [address] 12/13/2023 2:15 PM EDT Office Visit Ophthalmology, [facility] [address] [facility] [place] [address] Ramsey Burnett, [address] [address] 01/10/2024 2:00 PM EDT Office Visit Ophthalmology, [facility] [address] [facility] [place] [address] Ramsey Burnett, DO [address] [place] [address] 02/04/2024 10:20 AM EDT Office Visit Family Practice [facility] [address] [facility] [place] [address] Gregory Rausch MD [address] [facility] [place] [address] Scheduled Procedures Name Priority Associated Diagnoses Date/Ti [...] 2023 10/25/2021, 02/16/2021, 01/18/2021 GFR 01/31/2024 08/02/2023, 1103/2023, 06/28/2023, Additional history exists Albumin/Creatinine Ratio 03/09/2024 023, 12/22/2022, 05/05/2021, Additional history exists HbA1c 03/19/2024 09/18/2023, 110 03/2023, 04/09/2023, Additional history exists TSH 06/06/2024 06/06/2023, 01/23, 12/22/2022, Additional history exists CKD PHOS USE SMARTSET 44302 06/18/202405/26, 06/16/2023, 06/15/2023, Additional history exists CKD HGB USE SMARTSET 56415 07/31/202407/31, 07/31/2023, 06/29/2023, Additional history exists Diabetic [...] this encounter Medical Devices Implanted Type Area Master Welder Device Identifier Shelf Expiration Date Model / Serial / Lot Cath Roselia Single Lumen - [id number] Implanted:Qty : 1 on 03/12/2008 at OR [facility] Left: Chest [employer] *DO NOT USE* 07/25/2012 21-4053-24 / / [id number] Valve Tarsha Aortic [id number] - [id number] Implanted:Qty : 1 on 11/01/2010 at OR [facility] N/A: Heart [employer] DANIEL 05/20/2012 2800TFX-25 / / [id number] Mesh Soft [id number] - [id number] Implanted:Qty : 1 on 10/10/2019 [place] Hendricks[place] [facility] [place]A: Abdomen CR BARD : DAVOL [id number] 05/21/2024 [id number] / / [id number] Lens 22.5 Sn60wf - [id number] - [id number] Implanted:Qty : 1 on 09/15/2020 by Renaldo Cook, Cece Acosta MD at [facility] Right: Eye IVA : SURGICAL [id number] 05/13/2025 SN60 WF.225 / [id number] documented as of this encounter Advance [...] the patient have Health Care Power of Metallurgical Inspector? No Full Code 10/10/2019 8:40 AM 10/10/2019 5:53 PM This order reflects the patients wishes and were consensually agreed upon. Full Code 11/06/2017 4:55 PM 11/07/2017 7:14 PM This order reflects the patients wishes and were consensually agreed upon. Healthcare Agents on File Name Relationship Healthcare Agent Relationshi p Communication [facility] Child Health Care Repr esentative (appointed verbally by patient or by statute hierarchy) Care Teams Emergency Management System Director Relationship Specialty Start Date End Date Gregory Rausch MD [address] [place] [address] PCP - General Family Medicine 02/12/20 documented as of this encounter
--- OUTSIDE RECORDS SUMMARY | 2023-10-27 12:09 | External Medical Summary | Summary of Care ---
Author Name Unknown Organization [facility] Address [address] [place] [address] Phone [phone] Care Team Providers Care Diamond Saw Operator Name Role Phone Gregory Rausch MD Primary Care Provider [phone] Reason for Visit * Reason Comments Diabetes Follow-Up Dosage Adjustment Via Phone (anticoag Cl inic) Encounter Details Date Type Department Care Team (Late st Contact Info) Description 10/08/2023 2:00 PM [facility] Telemedicine Pharmacy, [facility] [address] [facility] [place] [address] Pharmacist1, [facility] [address] [place] [address] Type 2 diabetes mellitus with hemoglobin A1c goal of less than 7.0% ([facility])*; Type 2 diabetes mellitus with stage 3a chronic kidney disease, with long-term current use of insulin ([facility]) Allergies Active Allergy Reactions Criticality Noted Date [...] hypoglycemia E11.9 100 Tab 3 07/06/2021 Active Tethis S.p.ATouch Verio w/Device Kit Use up to 4 times a day E11.9 1 Kit 0 02/10/2022 Active Tethis S.p.ATouch Delica Lancets 33G TEST 4 TIMES DAILY [...] 1 pod every 3 days 30 Each 01/11/2023 Active Omnipod 5 G6 Intro (Gen [...] fraction (HFpEF) ([facility]) Take 1 Tablet by mouth in the [...] than 7.0% ([facility]),Type 2 diabetes mellitus with stage 3a chronic kidney disease, with long-term current use of insulin ([facility]) Inject 30 Units under the skin at bedtime. 6 mL 2 07/31/2023 Active BD Pen Needle Short U/F 31G X 8 MMIndications:Type 2 diabetes mellitus with hemoglobin A1c goal of less than 7.0% ([facility]),Type 2 diabetes mellitus with stage 3a chronic kidney disease, with long-term current use of insulin ([facility]) Use with insulin 4 times daily 400 Each 3 07/31/2023 Active Gaviscon 80-14.2 MG Oral Tablet Chewable (Alum Hydroxide-Mag Trisilicate) Take by mouth as needed. 0 Active Atorvastatin Calcium 40 MG Oral Tablet (Lipitor)Indications: Heart failure, systolic, due to idiopathic cardiomyopathy ([facility]),S/P aortic valve replacement,HTN, goal below 140/80,Dyslipidemia, goal [...] than 7.0% ([facility]) Use up to 50 units per day [...] fraction (HFpEF) ([facility]) One tablet one morning twice per week (Sunday and Sunday), 30 minutes prior to torsemide dose 30 Tablet 3 10/02/2023 Active Gabapentin 100 MG Oral Capsule (Neurontin)Indication s:Polyneuropathy associated with underlying disease ([facility]) Take 1 Capsule by mouth in the morning and 1 Capsule at noon and 1 Capsule before bedtime. 90 Capsule 0 10/02/2023 Active Ammonium Lactate 12 % External Lotion (Lac-Hydrin) Apply to both feet once daily. 400 g 3 10/02/2023 Active Nystatin 759206 UNIT/GM External Powder (Nystop)Indications:C andidal intertrigo Apply [...] than 7.0% ([facility]),Type 2 diabetes mellitus with diabetic mononeuropathy, with long-term current use of insulin ([facility]),Type 2 diabetes mellitus with both eyes affected by mild nonproliferative retinopathy and macular edema, with long-term current use of insulin ([facility]),Type 2 diabetes mellitus with stage 3a chronic kidney disease, with long-term current use of insulin ([facility]) Inject 2 mg under the skin once a week. 9 mL 3 10/01/2023 Active documented as of this encounter [...] eye 09/28/2020 Coronary artery disease invo lving [place] coronary artery of [place] heart without angina pectoris 12/16/2019 Last Assessment [...] 12/21/2016 Diabetes mellitus 01/05/2014 12/21/2016 LEYVA RESEARCH OTHER*[id number] 01/05/2014 12/21/2016 Axillary pain 11/03/2013 12/21/2016 Obesity, [...] 12/21/2016 FOLLOWING SURGERY, UNSPECIFI ED ([facility] BSO 08/25/2011) 08/26/2011 12/21/2016 ADVANCE DIRECTIVE INFORMATION 04/17/2011 12/21/2016 Overview: Yes, Patient instructed to provide copy of advance directive for provider to review and to be scanned into Electronic Medical Record ADVANCE DIRECTIVE INFORMATION 03/01/2011 12/21/2016 Overview: Yes, Patient instructed to provide copy of advance directive for provider to review and to be scanned into Electronic Medical Record [facility] V710 Clinical Trial*[id number] 12/22/2010 04/14/2011 S/P aortic valve replacement 12/01/2010 08/26/2011 S/P AORTIC VALVE REPLACEMENT - #25 pericardial Mc valve 11/01/2010 06/28/2018 Overview: Aortic valve replacement with #25 pericardial Mc valve, model 2800TFX, serial number [id number] (Dr. Walker) [facility] V710 Clinical Trial*[id number] 10/18/2010 11/21/2010 Body mass index (BMI) of [...] 06/07/2018,01/08/20 18,12/05/2017,06/15,10/27/2013,09/12/2013 Pneumococcal Conjugate Vacci ne, 20-valent ([id number]) 06/22/2023 Pneumococcal Polysaccharide PPV23 (Pneumovax) 01/02/2008 Seasonal [...] this encounter Progress Notes * Neeraj Matthew, [facility] - 10/08/2023 1:58 PM EST Medication Therapy Disease Management Clinic - Diabetes Management Progress Note Patient Phone Numbers Kymab [phone] Jovita Rose, identified by name and date [...] meeting with them 10/17 at 2PM at [facility]. History of Treatment Barriers: Lifestyle: None Therapy [...] 12/18/2020 Diabetic Foot Exam 2021 COVID-19 Vaccine ( season) 2023 ASSESSMENT & PLAN: ICD-10-CM 1. Type 2 diabetes mellitus with hemoglobin A1c goal of less than 7.0% ([facility]) E11.9 2. Type 2 diabetes mellitus with stage 3a chronic kidney disease, with long-term current use of insulin ([facility]) E11.22 N18.31 Z79.4 BG Readings - Blood [...] MEDICATION CHANGES: yes, see below; preferred pharmacy: [facility] Diabetic Medications: Ozempic 1mg every Sunday (1mg [...] clinic in 3 weeks 10/29/2023 Neeraj Romero, RPbyron, CACP, CDE Clinical Pharmacist Medication Therapy Management Clinic 10/08/2023 1:58 PM documented in this encounter Plan of Treatment Upcoming Encounters Date Type Department Care Team (Latest Contact Info) Description 10/12/2023 10:00 AM EST Home Visit [facility], [facility] [address] [place] [address] Jaycee Sorto, RN [address] [place] [address] 10/15/2023 11:00 AM EST Office Visit Cardiology, [facility] [address] [address] Feli Teague PA-C [address] [place] [address] 10/29/2023 11:30 AM EST [facility] Pharmacy, [facility] [address] [facility] [address] Pharmacist1, [facility] [address] [facility] [address] 10/30/2023 9:30 AM EST Telemedicine Psychology, [place] [address], [place] [id number] Anjali Alanis, [facility] [address] [place] [address] 11/21/2023 9:20 AM EST Office Visit Family Practice [facility] [address] [address] Gregory Rausch MD [address] [place] [address] 12/05/2023 10:39 AM EDT Hospital Encounter OR [facility], Operating Room [facility] [address] [id number] Ramsey Burnett, DO [address] [facility] [place] [address] 12/05/2023 10:39 AM EDT - 12/05/2023 11:32 AM EDT Surgery OR [facility], Operating Room [facility] [address] [place] [address] Ramsey Burnett, DO [address] [place] [address] LEFT EXTRACAPSULAR CATARACT REMOVAL COMPLEX WITH IOL 12/06/2023 8:45 AM EDT Office Visit Ophthalmology, [facility] [address] [facility] [place] [address] Ramsey Burnett, DO [address] [place] [address] 12/13/2023 2:15 PM EDT Office Visit Ophthalmology, [facility] [address] [facility] [place] [address] Ramsey Burnett, DO [address] [address] 01/10/2024 2:00 PM EDT Office Visit Ophthalmology, [facility] [address] [facility] [place] [address] Ramsey Burnett, DO [address] [place] [address] 02/04/2024 10:20 AM EDT Office Visit Family Practice [facility] [address] [facility] [place] [address] Gregory Rausch MD [address] [place] [address] Scheduled Procedures Name Priority Associated Diagnoses Date/Ti [...] 05/05/2021, Additional history exists HbA1c 03/19/2024 09/18/2023, 0 03/2023, 04/09/2023, Additional history exists TSH 06/06/2024 06/06/2023, 01/23, 12/22/2022, Additional history exists CKD PHOS USE SMARTSET 08642 06/18/202405/26, 06/16/2023, 06/15/2023, Additional history exists CKD HGB USE SMARTSET 66361 07/31/202407/31, 07/31/2023, 06/29/2023, Additional history exists Diabetic [...] this encounter Medical Devices Implanted Type Area Configuration Manager Device Identifier Shelf Expiration Date Model / Serial / Lot Cath Roselia Single Lumen - [id number] Implanted:Qty : 1 on 03/12/2008 at OR [facility] Left: Chest [facility] *DO NOT USE* 07/25/2012 21-4053-24 / / [id number] Valve Tarsha Aortic [id number] - [id number] Implanted:Qty : 1 on 11/01/2010 at OR [facility] N/A: Heart MC NextlyCIMark[employer] DANIEL 05/20/2012 2800TFX-25 / / [id number] Mesh Soft [id number] - [id number] Implanted:Qty : 1 on 10/10/2019 by Gigi Hendrickson MD at [place] [facility] N/A: Abdomen CR BARD : DAVOL [id number] 05/21/2024 [id number] / / [id number] Lens 22.5 Sn60wf - [id number] - [id number] Implanted:Qty : 1 on 09/15/2020 by Renaldo Cook, Cece Acosta MD at OR [facility] Right: Eye IVA : SURGICAL [id number] 05/13/2025 SN60 WF.225 / [id number] documented as of this encounter Visit [...] the patient have Health Care Power of Special Machine Operator? No Full Code 10/10/2019 8:40 AM [...] patient or by statute hierarchy) Care Teams Diamond Saw Operator Relationship Specialty Start Date End Date Gregory Rausch MD [address] [place] [address] PCP - General Family Medicine 02/12/20 documented as of this encounter
--- OUTSIDE RECORDS SUMMARY | 2023-10-27 12:09 | External Medical Summary ---
Author Name Unknown Address Unknown Organization K0G:[facility] [address] [place] [address] Laboratory Report Ordering Provider Test Date Status VANDANA SALAZAR 10/15/2023 11:56:52 Final Observation Date Value Abnormality Reference (Units ) Status WBC, Total 10/15/2023 11:56:52 10.38 4.00-10.8 0 (K/uL) Final RBC 10/15/2023 11:56:52 4.83 3.85-5.15 (M/uL) Final Hemoglobin 10/15/2023 11:56:52 12.3 12.0-15.3 (g/dL) Final HCT 10/15/2023 11:56:52 38.3 36.0-45.2 (%) Final MCV 10/15/2023 11:56:52 79.3 81.5-97.5 (fL) Final MCH 10/15/2023 11:56:52 25.5 27.0-34.0 (pg) Final MCHC 10/15/2023 11:56:52 32.1 32.0-36.0 (g/dL) Final RDW 10/15/2023 11:56:52 16.0 11.5-15.5 (%) Final Platelets 10/15/2023 11:56:52 175 140-400 (K /uL) Final MPV 10/15/2023 11:56:52 10.9 6.6-11.1 ( fL) Final Performing Location [facility] [address] - [address] [place] [address]
--- OUTSIDE RECORDS SUMMARY | 2023-10-27 12:09 | External Medical Summary | Summary of Care ---
Author Name Unknown Organization [facility] Address [address] [place] [address] Phone [phone] Care Team Providers Care Carving Machine Operator Name Role Phone Deon Rausch MD Primary Care Provider [phone] Reason for Visit * Reason Onset Date Comments Medication Refill 10/01/2023 Encounter Details Date Type Department Care Team (Late st Contact Info) Description 10/01/2023 Refill Family Practice [facility] [address] [facility] [place] [address] Angeline Puentes, [address] [place] [address] Polyneuropathy associated with underlying disease (HCC) Allergies [...] hypoglycemia E11.9 100 Tab 3 1 Active panpanTouch Verio w/Device Kit Use up to 4 times a day E11.9 1 Kit 0 2 Active panpanTouch Delica Lancets 33G TEST 4 TIMES DAILY [...] fraction (HFpEF) ([facility]) Take 1 Tablet by mouth [...] before bedtime. 90 Capsule 0 4 Active Ozempic (2 MG/DOSE) 8 [...] g 3 3 10/01/19 24 Discontinu ed(Refill) Nystatin 277393 UNIT/GM External Powder (Nystop)Indications:C andidal intertrigo APPLY TOPICALLY TO AFFECTED AREA 3 TIMES A DAY. APPLY TO AFFECTED AREAS 60 g 1 3 10/01/19 24 Discontinu ed(Refill) Aquaphor External Ointment Apply topically to affected area as needed for Dry Skin. Apply to face 420 g 0 3 10/01/19 24 Discontinu ed(Refill) Gabapentin 100 MG Oral Capsule (Neurontin)Indication s:Polyneuropathy associated with underlying disease (HCC) Take 1 [...] eye 09/28/2020 Coronary artery disease invo lving [place] coronary artery of [place] heart without angina pectoris 12/16/2019 Last [...] 12/21/2016 Diabetes mellitus 01/05/2014 12/21/2016 LEYVA RESEARCH OTHER*[id number] 01/05/2014 12/21/2016 Axillary pain 11/03/2013 12/21/2016 Obesity, [...] cath 09/201008/26/2011 12/21/2016 FOLLOWING SURGERY, UNSPECIFI ED ([facility] BSO 08/25/2011) 08/26/2011 12/21/2016 ADVANCE DIRECTIVE INFORMATION 04/17/2011 12/21/2016 Overview: Yes, Patient instructed to provide copy of advance directive for provider to review and to be scanned into Electronic Medical Record ADVANCE DIRECTIVE INFORMATION 03/01/2011 12/21/2016 Overview: Yes, Patient instructed to provide copy of advance directive for provider to review and to be scanned into Electronic Medical Record [facility] V710 Clinical Trial*[id number] 12/22/2010 04/14/2011 S/P aortic valve replacement 12/01/2010 08/26/2011 S/P AORTIC VALVE REPLACEMENT - #25 pericardial Mc valve 11/01/2010 06/28/2018 Overview: Aortic valve replacement with #25 pericardial Mc valve, model 2800TFX, serial number [id number] (Dr. Walker) [facility] V710 Clinical Trial*[id number] 10/18/2010 11/21/2010 Body mass index (BMI) of [...] 06/07/2018,01/08/20 18,12/05/2017,06/15,10/27/2013,09/12/2013 Pneumococcal Conjugate Vacci ne, 20-valent ([id number]) 06/22/2023 Pneumococcal Polysaccharide PPV23 (Pneumovax) 01/02/2008 Seasonal [...] 10/02/2023 5:16 PM ESTSigned Prescriptions: Disp Refills Gabapentin 100 MG Oral Capsule (Neurontin) 90 Cap*0 Sig: Take 1 Capsule by mouth in the morning and 1 Capsule at noon and 1 Capsule before bedtime. Authorizing Provider: DEON RAUSCH * Telephone Encounter - L[facility] - 10/02/2023 12:33 PM ESTPending Prescriptions: Disp Refills Gabapentin 100 MG Oral Capsule (Neurontin) 90 Cap*0 Sig: Take 1 Capsule by mouth in the morning and 1 Capsule at noon and 1 Capsule before bedtime. * Telephone Encounter - Laya Mendez [facility] - 10/02/2023 12:33 PM EST Telepharmacy is currently not authorized to approve refills for the pended medication(s) per refillprotocol. Please approve if appropriate. Pending Prescriptions: Disp Refills Gabapentin 100 MG Oral Capsule (Neurontin) 90 Cap*0 Sig: Take 1 Capsule by mouth in the morning and 1 Capsule at noon and 1 Capsule before bedtime. 07/31/2023 (in office), 09/12/2023 (telemedicine) 11/21/2023 If no future appointments scheduled, and last appointment is greater than a year ago, please schedule patient for a follow-up appointment Last date the medication was ordered: 09/12/23 Pharmacy: [facility] [id number] [place] [address] Is this request for a controlled [...] Description 10/08/2023 2:00 PM EST Telemedicine Pharmacy, [facility] [address] [facility] [place] [address] Pharmacist1, [facility] [address] [facility] [place] [address] 10/12/2023 10:00 AM EST [facility] [address] [facility] [place] [address] Jaycee Sorto, RN [address] [facility] [place] [address] 10/15/2023 11:00 AM EST Office Visit Cardiology, [facility] [place] [address] Feli Teague PA-C [address] [facility] [place] [address] 10/30/2023 9:30 AM EST Telemedicine Psychology, [place] [address] [place] [address] Anjali Alanis LCSW [address] [place] [address] 11/21/2023 9:20 AM EST Office Visit Family Practice [facility] [address] [place] [address] Deon Rausch MD [address] [place] [address] 12/05/2023 10:39 AM EDT Hospital Encounter [facility], Operating Room [facility] [address] [place] [address] Ramsey Burnett, DO [address] [place] [address] 12/05/2023 10:39 AM EDT - 12/05/2023 11:32 AM EDT Surgery OR [facility], Operating Room [facility] [address] [place] [address] Ramsey Burnett, DO [address] [place] [address] LEFT EXTRACAPSULAR CATARACT REMOVAL COMPLEX WITH IOL 12/06/2023 8:45 AM EDT Office Visit Ophthalmology, [facility] [address] [facility] [place] [address] Ramsey Burnett, DO [address] [place] [address] 12/13/2023 2:15 PM EDT Office Visit Ophthalmology, [facility] [address] [place] [address] Ramsey Burnett, DO [address] [place] [address] 01/10/2024 2:00 PM EDT Office Visit Ophthalmology, [facility] [address] [facility] [place] [address] Ramsey Burnett, DO [address] [place] [address] 02/04/2024 10:20 AM EDT Office Visit Family Practice [facility] [address] [place] [address] Deon Rausch MD [address] [place] [address] Scheduled Procedures Name Priority Associated Diagnoses Date/Ti [...] Additional history exists CKD PHOS USE SMARTSET 05940 06/18/202405/26, 06/16/2023, 06/15/2023, Additional history exists CKD HGB USE SMARTSET 48797 07/31/202407/31, 07/31/2023, 06/29/2023, Additional history exists Diabetic [...] this encounter Medical Devices Implanted Type Area Blacking Wheel Tender Device Identifier Shelf Expiration Date Model / Serial / Lot Cath Rosleia Single Lumen - [id number] Implanted:Qty : 1 on 03/12/2008 at OR [facility] Left: Chest [employer] *DO NOT USE* 07/25/2012 21-4053-24 / / [id number] Valve Tarsha Aortic [id number] - [id number] Implanted:Qty : 1 on 11/01/2010 at OR [facility] N/A: Heart MC [employer] DANIEL 05/20/2012 2800TFX-25 / / [id number] Mesh Soft [id number] - [id number] Implanted:Qty : 1 on 10/10/2019 by Gigi Hendrickson MD at OR [facility] N/A: Abdomen CR BARD : DAVOL [id number] 05/21/2024 [id number] / / [id number] Lens 22.5 Sn60wf - [id number] - [id number] Implanted:Qty : 1 on 09/15/2020 by Renaldo Cook, Cece Acosta MD at OR [facility] Right: Eye IVA : SURGICAL [id number] 05/13/2025 SN60 WF.225 / [id number] documented as of this encounter Visit [...] the patient have Health Care Power of Timber Sizer Operator? No Full Code 10/10/2019 8:40 AM [...] patient or by statute hierarchy) Care Teams Carving Machine Operator Relationship Specialty Start Date End Date Deon Rausch MD [address] [place] [address] PCP - General Family Medicine 02/12/20 documented as of this encounter
--- OUTSIDE RECORDS SUMMARY | 2023-10-27 12:09 | External Medical Summary ---
Author Name Unknown Address Unknown Organization K0G:[facility] [place] [address] [place] [address] Laboratory Report Ordering Provider Test Date Status VANDANA SALAZAR 10/15/2023 11:56:52 Final Observation Date Value Abnormality Reference (Units ) Status BUN 10/15/2023 11:56:52 27 Above high normal 6-20 (mg/dL) Final Creatinine 10/15/2023 11:56:52 1.3 Above high normal 0.5-1.0 (mg/dL) Final Glomerular filtration rate/1.73 sq M.predicted [Volume Rate/Area] in Serum, Plasma or Blood by Creatinine-based formula (CKD-EPI) 10/15/2023 11:56:52 44 Below low normal >=60 (mL/min) Final eGFR is calculated based on the CKD-EPI 2020 equation SODIUM 10/15/2023 11:56:52 131 Below low normal 135 -146 (mmol/L) Final Potassium 10/15/2023 11:56:52 3.6 3.5-5.1 (m mol/L) Final Cl 10/15/2023 11:56:52 86 Below low normal 98- 107 (mmol/L) Final CO2 10/15/2023 11:56:52 26 22-32 (mmo l/L) Final Anion gap 10/15/2023 11:56:52 19 Above high normal 7- 15 (mmol/L) Final Glucose 10/15/2023 11:56:52 292 Above high normal 70 -120 (mg/dL) Final Albumin 10/15/2023 11:56:52 4.2 3.8-5.0 (g /dL) Final AST (Aspartate aminotransferase) 10/15/2023 11:56:52 18 10-35 (U/L) Fin al Alk Phos 10/15/2023 11:56:52 95 35-130 (U/ L) Final Bilirubin, Total 10/15/2023 11:56:52 0.8 <=1 .2 (mg/dL) Final Calcium 10/15/2023 11:56:52 9.8 8.4-10.2 ( mg/dL) Final Protein 10/15/2023 11:56:52 7.1 6.0-8.3 (g /dL) Final ALT (Alanine aminotransferase) 10/15/2023 11:56:52 11 10-35 (U/L) Renard bingham Performing Location [facility] [address] [facility] [place] [address]
--- OUTSIDE RECORDS SUMMARY | 2023-10-27 12:10 | External Medical Summary | Summary of Care ---
Author Name Unknown Organization [facility] Address [address] [place] [address] Phone [phone] Care Team Providers Care Registered Nurse Cardiac Name Role Phone Gregory Rausch MD Primary Care Provider [phone] Reason for Visit * Reason Comments Diabetes Follow-Up Dosage Adjustment In Person (Anticoag Cl inic) Encounter Details Date Type Department Care Team (Late st Contact Info) Description 09/26/2023 10:40 AM [facility] Pharmacy Pharmacy, [facility] [address] [facility] [place] [address] Pharmacist1, [facility] [address] [place] [address] Type 2 diabetes mellitus with hemoglobin A1c goal of less than 7.0% ([facility])*; Type 2 diabetes mellitus with stage 3a chronic kidney disease, with long-term current use of insulin ([facility]); Type 2 diabetes mellitus with diabetic peripheral angiopathy without gangrene, with long-term current use of insulin ([facility]); Type 2 diabetes mellitus with both eyes affected by mild nonproliferative retinopathy and macular edema, with long-term current use of insulin ([facility]) Allergies Active Allergy Reactions Criticality Noted Date Comments Adhesive Tape 07/02/2017 Can tolerate band-aids Glycerin Other (Please comment) 03/12/2008 Topical agents with glycein-burning & itching Lactose 12/09/2014 Dairy - gas Lisinopril Cough 01/21/2010 Monosodium Glutamate Edema Other 03/12/2008 Hands and feet Penicillins Rash 11/14/2007 documented as of this encounter (statuses as of 09/26/2023) Medications Medication Sig Dispensed Refills Start Date [...] hypoglycemia E11.9 100 Tab 3 07/06/2021 Active [facility] Verio w/Device Kit Use up to 4 times a day E11.9 1 Kit 0 02/10/2022 Active [facility] Delica Lancets 33G TEST 4 TIMES DAILY DIRECTED, E11.9 400 Each 3 02/10/2022 Active Melatonin 10 MG Oral CapsuleIndications:sl eep Take 1 Capsule by mouth at bedtime. 0 Active Ammonium Lactate 12 % External Lotion (Lac-Hydrin) Apply to both feet once daily. 400 g 3 11/10/2022 Active Magnesium Oxide 400 (240 Mg) MG [...] E 11.9 1 Each 3 01/16/2023 Active Ozempic (2 MG/DOSE) 8 MG/3ML Subcutaneous Solution Pen-injector (Semaglutide (2 MG/DOSE))Indications: Type 2 diabetes mellitus with hemoglobin A1c goal of less than 7.0% ([facility]),Type 2 diabetes mellitus with diabetic mononeuropathy, with long-term current use of insulin ([facility]),Type 2 diabetes mellitus with both eyes affected by mild nonproliferative retinopathy and macular edema, with long-term current use of insulin ([facility]),Type 2 diabetes mellitus with stage 3a chronic kidney disease, with long-term current use of insulin ([facility]) Inject 0.75 mL under the skin once a week. 9 mL 3 02/22/2023 Active Fluticasone Propionate 50 MCG/ACT Nasal Suspension (Flonase)Indications: Dizziness Administer 2 Sprays into each nostril in the morning. 16 g 3 03/01/2023 Active metOLazone 2.5 MG Oral Tablet (Zaroxolyn)Indication s:Acute on chronic heart failure with preserved ejection fraction (HFpEF) ([facility]) One tablet one morning twice per week (Sunday and Sunday), 30 minutes prior to torsemide dose 24 Tablet 3 03/12/2023 Active Additional Information Patient not taking.Reported on 08/03/2023 Clopidogrel Bisulfate 75 MG Oral Tablet (pLAVix) [...] with preserved ejection fraction (HFpEF) ([facility]) Take 1 Tablet by mouth in the [...] goal of less than 7.0% ([facility]),Type 2 diabetes mellitus with stage 3a chronic kidney disease, with long-term current use of insulin ([facility]) Inject 30 Units under the skin at bedtime. 6 mL 2 07/31/2023 Active BD Pen Needle Short U/F 31G X 8 MMIndications:Type 2 diabetes mellitus with hemoglobin A1c goal of less than 7.0% ([facility]),Type 2 diabetes mellitus with stage 3a chronic kidney disease, with long-term current use of insulin ([facility]) Use with insulin 4 times daily 400 Each 3 07/31/2023 Active Gaviscon 80-14.2 MG Oral Tablet Chewable (Alum Hydroxide-Mag Trisilicate) Take by mouth as needed. 0 Active Nystatin 680417 UNIT/GM External Powder (Nystop)Indications:C andidal intertrigo APPLY TOPICALLY TO AFFECTED AREA 3 TIMES A DAY. APPLY TO AFFECTED AREAS 60 g 1 08/20/2023 Active Atorvastatin Calcium 40 MG Oral Tablet (Lipitor)Indications: Heart failure, systolic, due to idiopathic cardiomyopathy ([facility]),S/P aortic valve replacement,HTN, goal below 140/80,Dyslipidemia, goal LDL below 70 TAKE 1 TABLET BY MOUTH DAILY. TO PREVENT HEART ATTACK/STROKE, PROTECT KIDNEY, AND CHOLESTEROL 90 Tablet 1 08/20/2023 Active Meclizine HCl 25 MG Oral Tablet (Antivert)Indications :Muscle tension headache TAKE 2 TABLETS BY MOUTH TWICE A DAY 360 Tablet 3 08/20/2023 Active Aquaphor External Ointment Apply topically to affected area as needed for Dry Skin. Apply to face 420 g 0 08/30/2023 Active metFORMIN HCl 1000 MG Oral Tablet [...] goal of less than 7.0% (HCC) Use up to 50 units per day in Omnipod. 5 Each 3 09/11/2023 Active Gabapentin 100 MG Oral Capsule (Neurontin)Indication s:Polyneuropathy associated with underlying disease (HCC) Take 1 Capsule by mouth in the morning and 1 Capsule at noon and 1 Capsule before bedtime. 90 Capsule 0 09/12/2023 Active BD Insulin Syringe 25G X 1" [...] before bedtime. 60 Tablet 5 09/26/2023 Active documented as of this encounter (statuses as of 09/26/2023) Active Problems Problem Noted Date Diagnosed Date [...] eye 09/28/2020 Coronary artery disease invo lving [place] coronary artery of [place] heart without angina pectoris 12/16/2019 Last Assessment [...] as of this encounter (statuses as of 09/26/2023) Resolved Problems Problem Noted Date Diagnosed Date [...] 12/21/2016 Diabetes mellitus 01/05/2014 12/21/2016 [facility]EARCH OTHER*[id number] 01/05/2014 12/21/2016 Axillary pain 11/03/2013 12/21/2016 Obesity, [...] cath 09/201008/26/2011 12/21/2016 FOLLOWING SURGERY, UNSPECIFI ED ([facility] 08/25/2011) 08/26/2011 12/21/2016 ADVANCE DIRECTIVE INFORMATION 04/17/2011 12/21/2016 Overview: Yes, Patient instructed to provide copy of advance directive for provider to review and to be scanned into Electronic Medical Record ADVANCE DIRECTIVE INFORMATION 03/01/2011 12/21/2016 Overview: Yes, Patient instructed to provide copy of advance directive for provider to review and to be scanned into Electronic Medical Record [facility] V710 Clinical Trial*[id number] 12/22/2010 04/14/2011 S/P aortic valve replacement 12/01/2010 08/26/2011 S/P AORTIC VALVE REPLACEMENT - #25 pericardial Mc valve 11/01/2010 06/28/2018 Overview: Aortic valve replacement with #25 pericardial Mc valve, model 2800TFX, serial number [id number] (Dr. Walker) [facility] V710 Clinical Trial*[id number] 10/18/2010 11/21/2010 Body mass index (BMI) of [...] as of this encounter (statuses as of 09/26/2023) Immunizations Name Administration Dates Next Due COVID-19 mRNA, LNP-s, No Pre serve, 2-Dose Series (Moderna) 10/25/2021,02/16/2021,01/18/2021 HEP A - Hepatitis A (Adult > 18 yrs) 06/07/2018, 12/05/2017 Hepatitis B, 20+ yrs 06/07/2018,01/08/20 18,12/05/2017,06/15,10/27/2013,09/12/2013 Pneumococcal Conjugate Vacci ne, 20-valent ([id number]) 06/22/2023 Pneumococcal Polysaccharide PPV23 (Pneumovax) 01/02/2008 Seasonal [...] (15 years old or older) No 11/06/19 Cognitive Status Response Date of Assessm ent Because of a physical, menta l, or emotional condition, do you have serious difficulty concentrating, remembering, or making decisions? (5 years old or older) No 11/06/2017 documented as of this encounter Progress Notes * Neeraj Matthew, [facility] - 09/26/2023 10:44 AM EST Medication Therapy [...] goal of less than 7.0% ([facility]) E11.9 2. Type 2 diabetes mellitus with stage 3a chronic kidney disease, with long-term current use of insulin ([facility]) E11.22 N18.31 Z79.4 3. Type 2 diabetes mellitus with diabetic peripheral angiopathy without gangrene, with long-term current use of insulin ([facility]) E11.51 Z79.4 4. Type 2 diabetes mellitus with both eyes affected by mild nonproliferative retinopathy and macular edema, with long-term current use of insulin ([facility]) E11.3213 Z79.4 BG Readings - Blood sugars [...] I am sending a message to the Omnipod rep to have her please contact the [...] Dexcom G6s. Caregiver checked also. I called [employer] [facility] and asked to speak to a supervisor briar shop but I was not connected with one. I explained that the patient needs her G6 supply overnighted so she can use her Omnipod 5 as intended. [employer] [facility] stated she would get supply shipped today. [...] in 12 days 10/08/2023 Neeraj Romero RPh, CDE Clinical Pharmacist - Incubator Operator [facility] 09/26/2023, 10:45 AM documented in this encounter Plan of Treatment Upcoming Encounters Date Type Department Care Team (Latest Contact Info) Description 10/08/2023 2:00 PM EST Telemedicine Pharmacy, [facility] [address] [place] [address] Pharmacist1, [facility] [address] [place] [address] 10/12/2023 10:00 AM EST Home Visit [facility] [address] [place] [address] Jaycee Sorto, RN [address] [place] [address] 10/15/2023 11:00 AM EST Office Visit Cardiology, [facility] [address] [place] [address] Feli Teague PA-C [address] [place] [address] 11/21/2023 9:20 AM EST Office Visit Family Practice [facility] [address] [place] [address] Gregory Rausch MD [address] [place] [address] 12/05/2023 10:39 AM EDT Hospital Encounter [facility], Operating Room [facility] [address] [place] [phone] Ramsey Burnett, DO [address] [address] 12/05/2023 10:39 AM EDT - 12/05/2023 11:32 AM EDT Surgery OR [facility], Operating Room [facility] [address] [place] [phone] Ramsey Burnett DO [address] [address] LEFT EXTRACAPSULAR CATARACT REMOVAL COMPLEX WITH IOL 12/06/2023 8:45 AM EDT Office Visit Ophthalmology, [facility] [address] [place] [address] Ramsey Burnett, DO [address] [address] 12/13/2023 2:15 PM EDT Office Visit Ophthalmology, [facility] [address] [place] [address] Ramsey Burnett, DO [address] [address] 01/10/2024 2:00 PM EDT Office Visit Ophthalmology, [facility] [address] [place] [address] Ramsey Burnett, DO [address] [address] 02/04/2024 10:20 AM EDT Office Visit Family Practice [facility] [address] [place] [address] Gregory Rausch MD [address] [facility] [place] [address] Scheduled Procedures Name Priority Associated Diagnoses Date/Ti [...] Additional history exists CKD PHOS USE SMARTSET 06852 06/18/202405/26, 06/16/2023, 06/15/2023, Additional history exists CKD HGB USE SMARTSET 80055 07/31/202407/31, 07/31/2023, 06/29/2023, Additional history exists Diabetic [...] this encounter Medical Devices Implanted Type Area Sewer Pipe Layer Device Identifier Shelf Expiration Date Model / Serial / Lot Cath Roselia Single Lumen - [id number] Implanted:Qty : 1 on 03/12/2008 at OR [facility] Left: Chest [employer] *DO NOT USE* 07/25/2012 21-4053-24 / / [id number] Valve Tarsha Aortic [id number] - [id number] Implanted:Qty : 1 on 11/01/2010 at OR [facility] N/A: Heart [employer] 05/20/2012 2800TFX-25 / / [id number] Mesh Soft [id number] - [id number] Implanted:Qty : 1 on 10/10/2019 [place] G[place] Hend[place] [facility]: Abdomen CR BARD : DAVOL [id number] 05/21/2024 [id number] / / [id number] Lens 22.5 Sn60wf - [id number] - [id number] Implanted:Qty : 1 on 09/15/2020 by Renaldo Cook, Cece Acosta MD at OR [facility] Right: Eye IVA : SURGICAL [id number] 05/13/2025 SN60 WF.225 / [id number] / [id number] documented as of this encounter Visit Diagnoses Diagnosis Type 2 diabetes mellitus with hemoglobin A1c goal of less than 7.0% (HCC)- Primary Type 2 diabetes mellitus with stage 3a chronic kidney disease, with long-term current use of insulin ([facility]) Type 2 diabetes mellitus with diabetic peripheral angiopathy without gangrene, with long-term current use of insulin ([facility]) Type 2 diabetes mellitus with both eyes affected by mild nonproliferative retinopathy and macular edema, with long-term current use of insulin ([facility]) Cataract Unspecified cataract documented in this encounter [...] the patient have Health Care Power of Public Speaking Coach? No Full Code 10/10/2019 8:40 AM 10/10/2019 [...] patient or by statute hierarchy) Care Teams Registered Nurse Cardiac Relationship Specialty Start Date End Date Gregory Rausch MD [address] [place] [address] PCP - General Family Medicine 02/12/20 documented as of this encounter
--- OUTSIDE RECORDS SUMMARY | 2023-10-27 12:10 | External Medical Summary | Summary of Care ---
Author Name Unknown Organization [facility] Address [address] [place] [address] Phone [phone] Care Team Providers Care Cut Off Sawyer Name Role Phone Gregory Rausch MD Primary Care Provider [phone] Reason for Visit * Reason Comments eRx-Medication Refill Encounter Details Date Type Department Care Team (Late st Contact Info) Description 10/01/2023 Refill Family Practice [facility] [address] [facility] [place] [address] Angeline Puentes DO [address] [facility] [place] [id number] Polyneuropathy associated with underlying disease (HCC) Allergies [...] hypoglycemia E11.9 100 Tab 3 07/06/2021 Active eEvent Verio w/Device Kit Use up to 4 times a day E11.9 1 Kit 0 02/10/2022 Active [employer] Delica Lancets 33G TEST 4 TIMES DAILY [...] every 10 days E 11.9 9 Each 01/16/2023 Active Dexcom G6 TransmitterIndication s:Type 2 diabetes mellitus with hemoglobin A1c goal of less than 7.0% (HCC) Use as directed. Use 1 transmitter every 90 days E 11.9 1 Each 01/16/2023 Active Fluticasone Propionate 50 MCG/ACT Nasal [...] ER 10 MEQ Oral Tablet Extended ReleaseIndications:Ac cocopah on chronic heart failure with preserved ejection [...] by mouth as needed. 0 Active Nystatin 780246 UNIT/GM External Powder (Nystop)Indications:C andidal intertrigo APPLY TOPICALLY TO AFFECTED AREA 3 TIMES A DAY. APPLY TO AFFECTED AREAS 60 g 1 08/20/2023 Active Atorvastatin Calcium 40 MG Oral Tablet (Lipitor)Indications: Heart failure, systolic, due to idiopathic cardiomyopathy (HCC),S/P aortic valve replacement,HTN, goal below 140/80,Dyslipidemia, goal [...] before bedtime. 60 Tablet 5 09/26/2023 Active Ozempic (2 MG/DOSE) 8 MG/3ML Subcutaneous Solution Pen-injector (Semaglutide (2 MG/DOSE))Indications: Type 2 diabetes mellitus with hemoglobin A1c goal of less than 7.0% ([facility]),Type 2 diabetes mellitus with diabetic mononeuropathy, with long-term current use of insulin ([facility]),Type 2 diabetes mellitus with both eyes affected [...] eye 09/28/2020 Coronary artery disease invo lving [place] coronary artery of [place] heart without angina pectoris 12/16/2019 Last Assessment [...] tension headache 02/01/201707/26 Depression with anxiety 12/21/2016 1001/2018 Ventral hernia without obstr uction or gangrene [...] 12/21/2016 Diabetes mellitus 01/05/2014 12/21/2016 LEYVA RESEARCH OTHER*[id number] 01/05/2014 12/21/2016 Axillary pain 11/03/2013 12/21/2016 Obesity, [...] CHEST PAIN - normal cors on cath 09/2010 08/26/2011 12/21/2016 FOLLOWING SURGERY, UNSPECIFI ED ([facility] 08/25/2011) 08/26/2011 12/21/2016 ADVANCE DIRECTIVE INFORMATION 04/17/2011 12/21/2016 Overview: Yes, Patient instructed to provide copy of advance directive for provider to review and to be scanned into Electronic Medical Record ADVANCE DIRECTIVE INFORMATION 03/01/2011 12/21/2016 Overview: Yes, Patient instructed to provide copy of advance directive for provider to review and to be scanned into Electronic Medical Record [facility] V710 Clinical Trial*[id number] 12/22/2010 04/14/2011 S/P aortic valve replacement 12/01/2010 08/26/2011 S/P AORTIC VALVE REPLACEMENT - #25 pericardial Mc valve 11/01/2010 06/28/2018 Overview: Aortic valve replacement with #25 pericardial Mc valve, model 2800TFX, serial number [id number] (Dr. Walker) [facility] V710 Clinical Trial*[id number] 10/18/2010 11/21/2010 Body mass index (BMI) of [...] 06/07/2018,01/08/20 18,12/05/2017,06/15,10/27/2013,09/12/2013 Pneumococcal Conjugate Vacci ne, 20-valent ([id number]) 06/22/2023 Pneumococcal Polysaccharide PPV23 (Pneumovax) 01/02/2008 Seasonal [...] encounter Miscellaneous Notes * Telephone Encounter - Rafa Betts [facility] - 10/02/2023 10:14 AM EST Refused Prescriptions: Disp Refills Gabapentin 100 MG Oral Capsule (Neurontin) 90 Cap*0 Sig: TAKE 1 CAPSULE BY MOUTH EVERY DAY IN THE MORNING , AT NOON, AND BEFORE BEDTIMERefused By: RAFA BETTS for Refusal: Duplicate Request -------- documented in this encounter Plan of Treatment Upcoming Encounters Date Type Department Care Team (Latest Contact Info) Description 10/08/2023 2:00 PM EST Telemedicine Pharmacy, [facility] [place] [address] [place] [address] Pharmacist1, [facility] [address] [place] [address] 10/12/2023 10:00 AM EST Home Visit [facility] [address] [place] [address] Jaycee Sorto RN [address] [place] [address] 10/15/2023 11:00 AM EST Office Visit Cardiology, [facility] [address] [facility] [place] [address] Feli Teague PA-C [address] [facility] [place] [address] 10/30/2023 9:30 AM EST Telemedicine Psychology, [place] [address] [place], [place] [phone] Anjali Alanis, [facility] [address] [place], [place] [phone] 11/21/2023 9:20 AM EST Office Visit Family Practice [facility] [address] [place] [address] Gregory Rausch MD [address] [facility] [place] [address] 12/05/2023 10:39 AM EDT Hospital Encounter [facility], Operating Room [facility] [address] [place] [phone] Ramsey Burnett, DO [address] [address] 12/05/2023 10:39 AM EDT - 12/05/2023 11:32 AM EDT Surgery OR [facility], Operating Room [facility] [address] [place] [phone] Ramsey Burnett, DO [address] [address] LEFT EXTRACAPSULAR CATARACT REMOVAL COMPLEX WITH IOL 12/06/2023 8:45 AM EDT Office Visit Ophthalmology, [facility] [address] [place] [address] Ramsey Burnett, DO [address] [address] 12/13/2023 2:15 PM EDT Office Visit Ophthalmology, [facility] [address] [facility] [place] [address] Ramsey Burnett, DO [address] [address] 01/10/2024 2:00 PM EDT Office Visit Ophthalmology, [facility] [address] [facility] [place] [address] Ramsey Burnett, DO [address] [address] 02/04/2024 10:20 AM EDT Office Visit Family Practice [facility] [address] [facility] [place] [address] Gregory Rausch MD [address] [facility] [place] [address] Scheduled Procedures Name Priority Associated Diagnoses Date/Ti [...] Additional history exists CKD PHOS USE SMARTSET 55375 06/18/202405/26, 06/16/2023, 06/15/2023, Additional history exists CKD HGB USE SMARTSET 84125 07/31/202407/31, 07/31/2023, 06/29/2023, Additional history exists Diabetic [...] this encounter Medical Devices Implanted Type Area Sail Maker Device Identifier Shelf Expiration Date Model / Serial / Lot Cath Roselia Single Lumen - [id number] Implanted:Qty : 1 on 03/12/2008 at OR [facility] Left: Chest [employer] *DO NOT USE* 07/25/2012 21-4053-24 / / [id number] Valve Tarsha Aortic [id number] - [id number] Implanted:Qty : 1 on 11/01/2010 at OR [facility] N/A: Heart [employer] 05/20/2012 2800TFX-25 / / [id number] Mesh Soft [id number] - [id number] Implanted:Qty : 1 on 10/10/2019 by Gigi Hendrickson [place] [facility] [place]/A: Abdomen CR BARD : DAVOL [id number] 05/21/2024 [id number] / / [id number] Lens 22.5 Sn60wf - [id number] - [id number] Implanted:Qty : 1 on 09/15/2020 by Renaldo Cook, Cece Acosta MD at OR [facility] Right: Eye IVA : SURGICAL [id number] 05/13/2025 SN60 WF.225 / [id number] / [id number] documented as of this encounter Visit [...] the patient have Health Care Power of Smash Piecer? No Full Code 10/10/2019 8:40 AM 10/10/2019 5:53 PM This order reflects the patients wishes and were consensually agreed upon. Full Code 11/06/2017 4:55 PM 11/07/2017 7:14 PM This order reflects the patients wishes and were consensually agreed upon. Healthcare Agents on File Name Relationship Healthcare Agent Relationshi p Communication Gigi Rose Adult Child [facility] Care Repr esentative (appointed verbally by patient or by statute hierarchy) Care Teams Cut Off Sawyer Relationship Specialty Start Date End Date Gregory Rausch MD [address] [place] [address] PCP - General Family Medicine 02/12/20 documented as of this encounter
--- OUTSIDE RECORDS SUMMARY | 2023-10-27 12:10 | External Medical Summary | Summary of Care ---
Author Name Unknown Organization [facility] Address [address] [place] [address] Phone [phone] Care Team Providers Care Java Web Engineer Name Role Phone Gregory Rausch MD Primary Care Provider [phone] Reason for Visit * Reason Comments Iol Measurement IOL and Paramjit Encounter Details Date Type Department Care Team (Late st Contact Info) Description 09/26/2023 12:45 PM EST Nurse Only Ophthalmology, [facility] [address] [place] [place] [address] [place], Nurse Oph [facility] [address] [place] [address] Iol Measurement (IOL and Paramjit) Allergies Active Allergy Reactions Criticality Noted Date [...] hypoglycemia E11.9 100 Tab 3 07/06/2021 Active Vator Verio w/Device Kit Use up to 4 times a day E11.9 1 Kit 0 02/10/2022 Active Pillars4LifeToSmarterphone Delica Lancets 33G TEST 4 TIMES DAILY [...] days E 11.9 1 Each 01/16/2023 Active Ozempic (2 MG/DOSE) 8 MG/3ML Subcutaneous Solution Pen-injector (Semaglutide (2 MG/DOSE))Indications: Type 2 diabetes mellitus with hemoglobin A1c goal of less than 7.0% (HCC),Type 2 diabetes mellitus with diabetic mononeuropathy, with long-term current use of insulin ([facility]),Type 2 diabetes mellitus with both eyes affected by mild nonproliferative retinopathy and macular edema, with long-term current use of insulin ([facility]),Type 2 diabetes mellitus with stage 3a chronic kidney disease, with long-term current use of insulin ([facility]) Inject 0.75 mL under the skin [...] ER 10 MEQ Oral Tablet Extended ReleaseIndications:Ac [place] on chronic heart failure with preserved ejection fraction (HFpEF) ([facility]) Take 1 Tablet by mouth in [...] by mouth as needed. 0 Active Nystatin 813215 UNIT/GM External Powder (Nystop)Indications:C andidal intertrigo APPLY [...] s:Polyneuropathy associated with underlying disease ([facility]) Take 1 Capsule by mouth in [...] eye 09/28/2020 Coronary artery disease invo lving [place] coronary artery of [place] heart without angina pectoris 12/16/2019 Last Assessment [...] 12/21/2016 Diabetes mellitus 01/05/2014 12/21/2016 LEYVA RESEARCH OTHER*[id number] 01/05/2014 12/21/2016 Axillary pain 11/03/2013 12/21/2016 Obesity, [...] cath 09/201008/26/2011 12/21/2016 FOLLOWING SURGERY, UNSPECIFI ED ([facility] 08/25/2011) 08/26/2011 12/21/2016 ADVANCE DIRECTIVE INFORMATION 04/17/2011 12/21/2016 Overview: Yes, Patient instructed to provide copy of advance directive for provider to review and to be scanned into Electronic Medical Record ADVANCE DIRECTIVE INFORMATION 03/01/2011 12/21/2016 Overview: Yes, Patient instructed to provide copy of advance directive for provider to review and to be scanned into Electronic Medical Record [facility] V710 Clinical Trial*[id number] 12/22/2010 04/14/2011 S/P aortic valve replacement 12/01/2010 08/26/2011 S/P AORTIC VALVE REPLACEMENT - #25 pericardial Mc valve 11/01/2010 06/28/2018 Overview: Aortic valve replacement with #25 pericardial Mc valve, model 2800TFX, serial number [id number] (Dr. Walker) [facility] V710 Clinical Trial*[id number] 10/18/2010 11/21/2010 Body mass index (BMI) of [...] 06/07/2018,01/08/20 18,12/05/2017,06/15,10/27/2013,09/12/2013 Pneumococcal Conjugate Vacci ne, 20-valent ([id number]) 06/22/2023 Pneumococcal Polysaccharide PPV23 (Pneumovax) 01/02/2008 Seasonal [...] No 11/06/2017 documented as of this encounter Nursing Notes * Tito Hutchinson COA - 09/26/2023 1:05 PM EST IOL measurements of both eyes completed and scanned into the electronic medical record. Please refer to operative report for interpretation. documented in this encounter Miscellaneous Notes * Addendum Note - Saravaann Lux MED ASSIST - 09/26/2023 1:10 PM EST Addended by: SARAVANAN ULX on: 09/26/2023 01:10 PM Modules accepted: Orders documented in this encounter Plan of Treatment Upcoming Encounters Date Type Department Care Team (Late st Contact Info) Description 10/12/2023 10:00 AM EST [facility] Visit [facility] [address] [address] Jaycee Sorto, RN [address] [address] 10/15/2023 11:00 AM EST Office Visit Cardiology, [facility] [address] [place] [address] Feli Teague PA-C [address] [address] 11/21/2023 9:20 AM EST Office Visit Family Practice [facility] [address] [place] [address] Gregory Rausch MD [address] [address] 12/05/2023 10:39 AM EDT Hospital Encounter OR [facility], Operating Room [facility] [address] [phone] Ramsey Burnett, DO [address] [address] 12/05/2023 10:39 AM EDT - 12/05/2023 11:32 AM EDT Surgery OR [facility], Operating Room [facility] [address] [address] Ramsey Burnett, DO [address] [address] LEFT EXTRACAPSULAR CATARACT REMOVAL COMPLEX WITH IOL 12/06/2023 8:45 AM EDT Office Visit Ophthalmology, [facility] [address] [address] Ramsey Burnett, DO [address] [address] 12/13/2023 2:15 PM EDT Office Visit Ophthalmology, [facility] [address] [address] Ramsey Burnett, DO [address] [address] 01/10/2024 2:00 PM EDT Office Visit Ophthalmology, [facility] [address] [place] [address] Ramsey Burnett, DO [address] [facility] [place] [address] 02/04/2024 10:20 AM EDT Office Visit [facility] [address] [address] Gregory Rausch MD [address] [place] [address] Scheduled Procedures Name Priority Associated Diagnoses Date/Ti [...] Additional history exists CKD PHOS USE SMARTSET 06826 06/18/202405/26, 06/16/2023, 06/15/2023, Additional history exists CKD HGB USE SMARTSET 94883 07/31/202407/31, 07/31/2023, 06/29/2023, Additional history exists Diabetic [...] this encounter Medical Devices Implanted Type Area Tuber Operator Device Identifier Shelf Expiration Date Model / Serial / Lot Cath Roselia Single Lumen - [id number] Implanted:Qty : 1 on 03/12/2008 at OR [facility] Left: Chest [employer] *DO NOT USE* 07/25/2012 21-4053-24 / / [id number] Valve Tarsha Aortic [id number] - [id number] Implanted:Qty : 1 on 11/01/2010 at OR [facility] N/A: Heart [employer] DANIEL 05/20/2012 2800TFX-25 / / [id number] Mesh Soft [id number] - [id number] Implanted:Qty : 1 on 10/10/2019 by Gigi Hendrickson MD at [place] [facility] N/A: Abdomen CR BARD : DAVOL [id number] 05/21/2024 [id number] / / [id number] Lens 22.5 Sn60wf - [id number] - [id number] Implanted:Qty : 1 on 09/15/2020 by Cece Roland MD at [facility] Right: Eye IVA : SURGICAL [id number] 05/13/2025 SN60 WF.225 / [id number] / [id number] documented as of this encounter Procedures Procedure Name Priority Date/Time Associated Diagnosis Comments COMPUTERIZED CORNEAL PARAMJIT Routine 09/26/2023 1:18 PM EST Age-related nuclear cataract of left eye IOL MEASUREMENTS, IOL MASTER Routine 09/26/2023 1:14 PM EST Age-related nuclear cataract of left eye documented in this encounter Results * COMPUTERIZED CORNEAL PARAMJIT (09/26/2023 1:18 PM EST) 09/26/2023 1:18 PM EST Ramsey Burnett DO MEDICINE Performing Organization Address [facility] de Phone Number [facility]IN[facility]PH[facility] * IOL MEASUREMENTS, IOL MASTER (09/26/2023 1:14 PM EST) 09/26/2023 1:14 PM EST Ramsey Burnett DO OTHER Performing Organization Address [facility] Co de Phone Number CONTINUUM OPHTH documented in this encounter Visit Diagnoses Diagnosis Age-related nuclear cataract of left eye- Primary Senile nuclear sclerosis Cataract Unspecified cataract documented in this encounter [...] the patient have Health Care Power of Electrical Test Engineer? No Full Code 10/10/2019 8:40 AM 10/10/2019 5:53 PM This order reflects the patients wishes and were consensually agreed upon. Full Code 11/06/2017 4:55 PM 11/07/2017 7:14 PM This order reflects the patients wishes and were consensually agreed upon. Healthcare Agents on File Name Relationship Healthcare Agent Relationshi p Communication Gigi Gutierrez [facility] Adult Child Health Care Repr esentative (appointed verbally by patient or by statute hierarchy) Care Teams Java Web Engineer Relationship Specialty Start Date End Date Gregory Rausch MD [address] [facility] [place] [address] PCP - General Family Medicine 02/12/20 documented as of this encounter
--- OUTSIDE RECORDS SUMMARY | 2023-10-27 12:10 | External Medical Summary | Summary of Care ---
Author Name Unknown Organization [facility] Address [address] [place] [address] Phone [phone] Care Team Providers Care Deicer Element Winder Machine Name Role Phone Gregory Rausch MD Primary Care Provider [phone] Reason for Visit * Reason Comments eRx-Medication Refill Encounter Details Date Type Department Care Team (Late st Contact Info) Description 10/01/2023 Refill Family Practice [facility] [address] [facility] [place] [address] Gregory [facility]ausch MD [address] [facility] [place] [address] Candidal intertrigo Allergies Active Allergy Reactions Criticality Noted Date [...] hypoglycemia E11.9 100 Tab 3 07/06/2021 Active Birds Eye SystemsToYaKlass Verio w/Device Kit Use up to 4 times a day E11.9 1 Kit 0 02/10/2022 Active Birds Eye SystemsToYaKlass Delica Lancets 33G TEST 4 TIMES DAILY [...] hemoglobin A1c goal of less than 7.0% ([facility]) Use as directed. Use 1 sensor every 10 days E 11.9 9 Each 3 01/16/2023 Active Dexcom G6 TransmitterIndication s:Type 2 diabetes mellitus with hemoglobin A1c goal of less than 7.0% ([facility]) Use as directed. Use 1 transmitter every 90 days E 11.9 1 Each 01/16/2023 Active Fluticasone Propionate 50 MCG/ACT Nasal Suspension (Flonase)Indications: Dizziness Administer 2 Sprays into each nostril in the morning. 16 g 3 03/01/2023 Active metOLazone 2.5 MG Oral Tablet (Zaroxolyn)Indication s:Acute on chronic heart failure with preserved ejection fraction (HFpEF) ([facility]) One tablet one morning twice per [...] ER 10 MEQ Oral Tablet Extended ReleaseIndications:Ac [place] on chronic heart failure with preserved ejection fraction (HFpEF) ([facility]) Take 1 Tablet by mouth in the [...] hemoglobin A1c goal of less than 7.0% ([facility]),Type 2 diabetes mellitus with stage 3a chronic kidney disease, with long-term current use of insulin ([facility]) Inject 30 Units under the skin at bedtime. 6 mL 2 07/31/2023 Active BD Pen Needle Short U/F 31G X 8 MMIndications:Type 2 diabetes mellitus with hemoglobin A1c goal of less than 7.0% ([facility]),Type 2 diabetes mellitus with stage 3a chronic kidney disease, with long-term current use of insulin ([facility]) Use with insulin 4 times daily 400 Each 3 07/31/2023 Active Gaviscon 80-14.2 MG Oral Tablet Chewable (Alum Hydroxide-Mag Trisilicate) Take by mouth as needed. 0 Active Nystatin 426359 UNIT/GM External Powder (Nystop)Indications:C andidal intertrigo APPLY [...] hemoglobin A1c goal of less than 7.0% ([facility]) Use up to 50 units per day in Omnipod. 5 Each 3 09/11/2023 Active Gabapentin 100 MG Oral Capsule (Neurontin)Indication s:Polyneuropathy associated with underlying disease ([facility]) Take 1 Capsule by mouth in the [...] edema, with long-term current use of insulin (HCC),Type 2 diabetes mellitus with stage 3a chronic kidney disease, with long-term current use of insulin ([facility]) Inject 2 mg under the skin [...] eye 09/28/2020 Coronary artery disease invo lving [place] coronary artery of [place] heart without angina pectoris 12/16/2019 Last Assessment [...] 12/21/2016 Diabetes mellitus 01/05/2014 12/21/2016 LEYVA RESEARCH OTHER*[id number] 01/05/2014 12/21/2016 Axillary pain 11/03/2013 12/21/2016 Obesity, [...] to be scanned into Electronic Medical Record [facility] V710 Clinical Trial*[id number] 12/22/2010 04/14/2011 S/P aortic valve replacement 12/01/2010 08/26/2011 S/P AORTIC VALVE REPLACEMENT - #25 pericardial Mc valve 11/01/2010 06/28/2018 Overview: Aortic valve replacement with #25 pericardial Mc valve, model 2800TFX, serial number [id number] (Dr. Walker) [facility] V710 Clinical Trial*[id number] 10/18/2010 11/21/2010 Body mass index (BMI) of [...] 06/07/2018,01/08/20 18,12/05/2017,06/15,10/27/2013,09/12/2013 Pneumococcal Conjugate Vacci ne, 20-valent (Oltthan99) 06/22/2023 Pneumococcal Polysaccharide PPV23 (Pneumovax) 01/02/2008 Seasonal [...] Notes * Telephone Encounter - Rafa Betts [facility] - 10/02/2023 10:15 AM EST Refused Prescriptions: Disp Refills Nystatin 420852 UNIT/GM External Powder (N*60 g 1 Sig: APPLY TOPICALLY TO AFFECTED AREA 3 TIMES A DAY.Refused By: RAFA BETTSason for Refusal: Duplicate Request documented in this encounter Plan of Treatment Upcoming Encounters Date Type Department Care Team (Latest Contact Info) Description 10/08/2023 2:00 PM EST Telemedicine Pharmacy, [facility] [address] [facility] [place] [address] Pharmacist1, [facility] [address] [place] [address] 10/12/2023 10:00 AM EST Home Visit [facility] [address] [address] Jaycee Sorto, RN [address] [place] [address] 10/15/2023 11:00 AM EST Office Visit Cardiology, [facility] [address] [facility] [place] [address] Feli Teague PA-C [address] [place] [address] 10/30/2023 9:30 AM EST Telemedicine Psychology, [place] [address] [place] [address] Anjali Alanis, [facility] [address] [place] [address] 11/21/2023 9:20 AM EST Office Visit Family Practice [facility] [address] [place] [address] Gregory Rausch MD [address] [place] [address] 12/05/2023 10:39 AM EDT Hospital Encounter [facility], Operating Room [facility] [address] [place] [phone] Ramsey Burnett, DO [address] [address] 12/05/2023 10:39 AM EDT - 12/05/2023 11:32 AM EDT Surgery OR [facility], Operating Room [facility] [address] [phone] Ramsey Burnett, DO [address] [address] LEFT EXTRACAPSULAR CATARACT REMOVAL COMPLEX WITH IOL 12/06/2023 8:45 AM EDT Office Visit Ophthalmology, [facility] [address] [place] [address] Ramsey Burnett, DO [address] [address] 12/13/2023 2:15 PM EDT Office Visit Ophthalmology, [facility] [address] [facility] [place] [address] Ramsey Burnett, DO [address] [address] 01/10/2024 2:00 PM EDT Office Visit Ophthalmology, [facility] [address] [facility] [place] [address] Ramsey Burnett, DO [address] [address] 02/04/2024 10:20 AM EDT Office Visit Family Practice [facility] [address] [facility] [place] [address] Gregory Rausch MD [address] [facility] [place] [address] Scheduled Procedures Name Priority Associated Diagnoses Date/Ti [...] 05/05/2021, Additional history exists HbA1c 03/19/2024 09/18/2023, 11/03/2023, 04/09/2023, Additional history exists TSH 06/06/2024 06/06/2023, 01/23, 12/22/2022, Additional history exists CKD PHOS USE SMARTSET 85865 06/18/202405/26, 06/16/2023, 06/15/2023, Additional history exists CKD HGB USE SMARTSET 23538 07/31/202407/31, 07/31/2023, 06/29/2023, Additional history exists Diabetic [...] this encounter Medical Devices Implanted Type Area Offset Machine Operator Device Identifier Shelf Expiration Date Model / Serial / Lot Cath Roselia Single Lumen - [id number] Implanted:Qty : 1 on 03/12/2008 at OR [facility] Left: Chest [employer] *DO NOT USE* 07/25/2012 21-4053-24 / / [id number] Valve Tarsha Aortic [id number] - [id number] Implanted:Qty : 1 on 11/01/2010 at OR [facility] N/A: Heart [employer] DANIEL 05/20/2012 2800TFX-25 / / [id number] Mesh Soft [id number] - [id number] Implanted:Qty : 1 on 10/10/2019 [place] Gigi Hendricks[place] [facility]A: Abdomen CR BARD : DAVOL [id number] 05/21/2024 [id number] / / [id number] Lens 22.5 Sn60wf - [id number] - [id number] Implanted:Qty : 1 on 09/15/2020 by Renaldo Cook, Cece Acosta MD at OR [facility] Right: Eye IVA : SURGICAL [id number] 05/13/2025 SN60 WF.225 / [id number] / [id number] documented as of this encounter Visit Diagnoses Diagnosis Candidal intertrigo Candidiasis of skin and nails Cataract Unspecified cataract documented in this encounter [...] the patient have Health Care Power of Railroad Car Checker? No Full Code 10/10/2019 8:40 AM 10/10/2019 [...] patient or by statute hierarchy) Care Teams Deicer Element Winder Machine Relationship Specialty Start Date End Date Gregory Rausch MD [address] [place] [address] PCP - General Family Medicine 02/12/20 documented as of this encounter
--- OUTSIDE RECORDS SUMMARY | 2023-10-27 12:10 | External Medical Summary | Summary of Care ---
Author Name Unknown Organization [facility] Address [address] [place] [address] Phone [phone] Care Team Providers Care Case Consultant Name Role Phone Deon Rausch MD Primary Care Provider [phone] Reason for Visit * Reason Onset Date Comments Medication Refill 10/01/2023 Encounter Details Date Type Department Care Team (Late st Contact Info) Description 10/01/2023 Refill Pharmacy, [facility] [address] [address] Deon Rausch MD [address] [address] Type 2 diabetes mellitus with hemoglobin A1c goal of less than 7.0% ([facility]); Type 2 diabetes mellitus with diabetic mononeuropathy, with long-term current use of insulin ([facility]); Type 2 diabetes mellitus with both eyes affected by mild nonproliferative retinopathy and macular edema, with long-term current use of insulin ([facility]); Type 2 diabetes mellitus with stage 3a chronic kidney disease, with long-term current use of insulin ([facility]) Allergies Active Allergy Reactions Criticality Noted Date Comments Adhesive Tape 07/02/2017 Can tolerate band-aids Glycerin Other (Please comment) 03/12/2008 Topical agents with glycein-burning & itching Lactose 12/09/2014 Dairy - gas Lisinopril Cough 01/21/2010 Monosodium Glutamate Edema Other 03/12/2008 Hands and feet Penicillins Rash 11/14/2007 documented as of this encounter (statuses as of 10/01/2023) Medications Medication Sig Dispensed Refills Start Date [...] hypoglycemia E11.9 100 Tab 3 1 Active [employer] Verio w/Device Kit Use up to 4 times a day E11.9 1 Kit 0 2 Active [employer] Delica Lancets 33G TEST 4 TIMES DAILY [...] the morning. 16 g 3 3 Active metOLazone 2.5 MG Oral Tablet (Zaroxolyn)Indication s:Acute on chronic heart failure with preserved ejection fraction (HFpEF) ([facility]) One tablet one morning twice per week (Sunday and Sunday), 30 minutes prior to torsemide dose 24 Tablet 3 3 Active Additional Information Patient not taking.Reported on [...] ER 10 MEQ Oral Tablet Extended ReleaseIndications:Ac [place] on chronic heart failure with preserved ejection fraction (HFpEF) ([facility]) Take 1 Tablet by mouth [...] goal of less than 7.0% ([facility]),Type 2 diabetes mellitus with stage 3a chronic kidney disease, with long-term current use of insulin ([facility]) Inject 30 Units under the skin at bedtime. 6 mL 2 3 Active BD Pen Needle Short U/F 31G X 8 MMIndications:Type 2 diabetes mellitus with hemoglobin A1c goal of less than 7.0% ([facility]),Type 2 diabetes mellitus with stage 3a chronic kidney disease, with long-term current use of insulin ([facility]) Use with insulin 4 times daily 400 Each 3 3 Active Gaviscon 80-14.2 MG Oral Tablet Chewable (Alum Hydroxide-Mag Trisilicate) Take by mouth as needed. 0 Active Nystatin 291069 UNIT/GM External Powder (Nystop)Indications:C andidal intertrigo APPLY TOPICALLY TO AFFECTED AREA 3 TIMES A DAY. APPLY TO AFFECTED AREAS 60 g 1 3 Active Atorvastatin Calcium 40 MG Oral Tablet (Lipitor)Indications: Heart failure, systolic, due to idiopathic cardiomyopathy ([facility]),S/P aortic valve replacement,HTN, goal below [...] goal of less than 7.0% ([facility]) Use up to 50 units per day in Omnipod. 5 Each 3 3 Active Gabapentin 100 MG Oral Capsule (Neurontin)Indication s:Polyneuropathy associated with underlying disease ([facility]) Take 1 Capsule by mouth [...] before bedtime. 60 Tablet 5 4 Active Ozempic (2 MG/DOSE) 8 MG/3ML Subcutaneous Solution Pen-injector (Semaglutide (2 MG/DOSE))Indications: Type 2 diabetes mellitus with hemoglobin A1c goal of less than 7.0% ([facility]),Type 2 diabetes mellitus with diabetic mononeuropathy, with long-term current use of insulin ([facility]),Type 2 diabetes mellitus with both eyes affected by mild nonproliferative retinopathy and macular edema, with long-term current use of insulin ([facility]),Type 2 diabetes mellitus with stage 3a chronic kidney disease, with long-term current use of insulin ([facility]) Inject 2 mg under the skin once a week. 9 mL 3 4 Active Ozempic (2 MG/DOSE) 8 MG/3ML Subcutaneous Solution Pen-injector (Semaglutide (2 MG/DOSE))Indications: Type 2 diabetes mellitus with hemoglobin A1c goal of less than 7.0% ([facility]),Type 2 diabetes mellitus with diabetic mononeuropathy, with long-term current use of insulin ([facility]),Type 2 diabetes mellitus with both eyes affected by mild nonproliferative retinopathy and macular edema, with long-term current use of insulin ([facility]),Type 2 diabetes mellitus with stage 3a chronic kidney disease, with long-term current use of insulin ([facility]) Inject 0.75 mL under the skin once a week. 9 mL 3 3 10/01/19 24 Discontinu ed(Refill) documented as of this encounter (statuses as of 10/01/2023) Active Problems Problem Noted Date Diagnosed Date [...] eye 09/28/2020 Coronary artery disease invo lving [place] coronary artery of [place] heart without angina pectoris 12/16/2019 Last Assessment [...] as of this encounter (statuses as of 10/01/2023) Resolved Problems Problem Noted Date Diagnosed Date [...] 12/21/2016 Diabetes mellitus 01/05/2014 12/21/2016 LEYVA RESEARCH OTHER*[id number] 01/05/2014 12/21/2016 Axillary pain 11/03/2013 12/21/2016 Obesity, [...] cath 09/201008/26/2011 12/21/2016 FOLLOWING SURGERY, UNSPECIFI ED ([facility] 08/25/2011) 08/26/2011 12/21/2016 ADVANCE DIRECTIVE INFORMATION 04/17/2011 12/21/2016 Overview: Yes, Patient instructed to provide copy of advance directive for provider to review and to be scanned into Electronic Medical Record ADVANCE DIRECTIVE INFORMATION 03/01/2011 12/21/2016 Overview: Yes, Patient instructed to provide copy of advance directive for provider to review and to be scanned into Electronic Medical Record [employer] V710 Clinical Trial*[id number] 12/22/2010 04/14/2011 S/P aortic valve replacement 12/01/2010 08/26/2011 S/P AORTIC VALVE REPLACEMENT - #25 pericardial Mc valve 11/01/2010 06/28/2018 Overview: Aortic valve replacement with #25 pericardial Mc valve, model 2800TFX, serial number [id number] (Dr. Walker) [employer] V710 Clinical Trial*[id number] 10/18/2010 11/21/2010 Body mass index (BMI) of [...] as of this encounter (statuses as of 10/01/2023) Immunizations Name Administration Dates Next Due COVID-19 mRNA, LNP-s, No Pre serve, 2-Dose Series (Moderna) 10/25/2021,02/16/2021,01/18/2021 HEP A - Hepatitis A (Adult > 18 yrs) 06/07/2018, 12/05/2017 Hepatitis B, 20+ yrs 06/07/2018,01/08/20 18,12/05/2017,06/15,10/27/2013,09/12/2013 Pneumococcal Conjugate Vacci ne, 20-valent ([id number]) 06/22/2023 Pneumococcal Polysaccharide PPV23 (Pneumovax) 01/02/2008 Seasonal [...] encounter Miscellaneous Notes * Telephone Encounter - Fang Cisneros [facility] - 10/01/2023 3:01 PM EST Signed Prescriptions: Disp Refills Ozempic (2 MG/DOSE) 8 MG/3ML Subcutaneous *9 mL 3 Sig: Inject 2 mg under the skin once a week.Authorizing Provider: DEON RAUSCH User: FANG CISNEROS documented in this encounter Plan of Treatment Upcoming Encounters Date Type Department Care Team (Latest Contact Info) Description 10/08/2023 2:00 PM EST Telemedicine Pharmacy, [facility] [address] [facility] [place] [address] Pharmacist1, [facility] [address] [facility] [place] [address] 10/12/2023 10:00 AM EST Home Visit [facility] at [facility] [address] [address] Jaycee Sorto RN [address] [place] [address] 10/15/2023 11:00 AM EST Office Visit Cardiology, [facility] [address] [address] Feli Teague PA-C [address] [place] [address] 11/21/2023 9:20 AM EST Office Visit Family Practice [facility] [address] [address] Deon Rausch MD [address] [place] [address] 12/05/2023 10:39 AM EDT Hospital Encounter [facility], Operating Room [facility] [address] [phone] Ramsey Burnett, DO [address] [facility] [place] [id number] 12/05/2023 10:39 AM EDT - 12/05/2023 11:32 AM EDT Surgery OR [facility], Operating Room [facility] [address] [place] [phone] Ramsey Burnett, DO [address] [address] LEFT EXTRACAPSULAR CATARACT REMOVAL COMPLEX WITH IOL 12/06/2023 8:45 AM EDT Office Visit Ophthalmology, [facility] [address] [facility] [place] [address] Ramsey Burnett, DO [address] [address] 12/13/2023 2:15 PM EDT Office Visit Ophthalmology, [facility] [address] [facility] [place] [address] Ramsey Burnett, DO [address] [address] 01/10/2024 2:00 PM EDT Office Visit Ophthalmology, [facility] [address] [facility] [place] [address] Ramsey Burnett, DO [address] [address] 02/04/2024 10:20 AM EDT Office Visit Family Practice [facility] [address] [facility] [place] [address] Deon Rausch MD [address] [place] [address] Scheduled Procedures Name Priority Associated Diagnoses Date/Ti [...] Additional history exists CKD PHOS USE SMARTSET 53116 06/18/202405/26, 06/16/2023, 06/15/2023, Additional history exists CKD HGB USE SMARTSET 25007 07/31/202407/31, 07/31/2023, 06/29/2023, Additional history exists Diabetic [...] this encounter Medical Devices Implanted Type Area Book Cleaner Device Identifier Shelf Expiration Date Model / Serial / Lot Cath Roselia Single Lumen - [id number] Implanted:Qty : 1 on 03/12/2008 at OR [facility] Left: Chest [facility] *DO NOT USE* 07/25/2012 21-4053-24 / / [id number] Valve Tarsha Aortic [id number] - [id number] Implanted:Qty : 1 on 11/01/2010 at OR [facility] N/A: Heart [employer] VidSysCIXDN/[employer] DANIEL 05/20/2012 2800TFX-25 / / [id number] Mesh Soft [id number] - [id number] Implanted:Qty : 1 on 10/10/2019 by Gigi Hendrickson MD at OR [facility] N/A: Abdomen CR BARD : DAVOL [id number] 05/21/2024 [id number] / / [id number] Lens 22.5 Sn60wf - [id number] - [id number] Implanted:Qty : 1 on 09/15/2020 by Renaldo Cook, Cece Acosta MD at OR [facility] Right: Eye IVA : SURGICAL [id number] 05/13/2025 SN60 WF.225 / [id number] documented as of this encounter Visit Diagnoses Diagnosis Type 2 diabetes mellitus with hemoglobin A1c goal of less than 7.0% (HCC) Type 2 diabetes mellitus with diabetic mononeuropathy, with long-term current use of insulin (HCC) Type 2 diabetes mellitus with both eyes affected by mild nonproliferative retinopathy and macular edema, with long-term current use of insulin ([facility]CC) Type 2 diabetes mellitus with stage 3a [...] the patient have Health Care Power of Sales Rep? No Full Code 10/10/2019 8:40 AM 10/10/2019 5:53 PM This order reflects the patients wishes and were consensually agreed upon. Full Code 11/06/2017 4:55 PM 11/07/2017 7:14 PM This order reflects the patients wishes and were consensually agreed upon. Healthcare Agents on File Name Relationship Healthcare Agent Relationshi p Communication [facility] Child Health Care Repr esentative (appointed verbally by patient or by statute hierarchy) Care Teams Case Consultant Relationship Specialty Start Date End Date Deon Rausch MD [address] [place] [address] PCP - General Family Medicine 02/12/20 documented as of this encounter
--- OUTSIDE RECORDS SUMMARY | 2023-10-27 12:10 | External Medical Summary | Summary of Care ---
Author Name Unknown Organization [facility] Address [address] [place] [address] Phone [phone] Care Team Providers Care Visual Designer Name Role Phone Gregory Rausch MD Primary Care Provider [phone] Reason for Visit * Reason Comments Iol Measurement IOL and Paramjit Encounter Details Date Type Department Care Team (Late st Contact Info) Description 09/26/2023 12:45 PM EST Nurse Only Ophthalmology, [facility] [address] [place] [address] [place], Nurse O[facility] [address] [place] [address] Iol Measurement (IOL and Paramjit) Allergies Active [...] hypoglycemia E11.9 100 Tab 3 07/06/2021 Active [employer] Verio w/Device Kit Use up to 4 times a day E11.9 1 Kit 0 02/10/2022 Active [employer] Delica Lancets 33G TEST 4 TIMES DAILY [...] with long-term current use of insulin ([facility]),Type 2 diabetes mellitus with both eyes affected by mild nonproliferative retinopathy and macular edema, with long-term current use of insulin ([facility]),Type 2 diabetes mellitus with stage 3a chronic kidney disease, with long-term current use of insulin ([facility]) Inject 0.75 mL under the skin once a week. 9 mL 3 02/22/2023 Active Fluticasone Propionate 50 MCG/ACT Nasal Suspension (Flonase)Indications: Dizziness Administer 2 Sprays into each nostril in the morning. 16 g 3 03/01/2023 Active metOLazone 2.5 MG Oral Tablet (Zaroxolyn)Indication s:Acute on chronic heart failure with preserved ejection fraction (HFpEF) ([facility]) One tablet one morning twice [...] ER 10 MEQ Oral Tablet Extended ReleaseIndications:Ac [place] on chronic heart failure with preserved ejection fraction (HFpEF) ([facility]) Take 1 Tablet by mouth [...] A1c goal of less than 7.0% ([facility]),Type 2 diabetes mellitus with stage 3a chronic kidney disease, with long-term current use of insulin ([facility]) Inject 30 Units under the skin at bedtime. 6 mL 2 07/31/2023 Active BD Pen Needle Short U/F 31G X 8 MMIndications:Type 2 diabetes mellitus with hemoglobin A1c goal of less than 7.0% ([facility]),Type 2 diabetes mellitus with stage 3a chronic kidney disease, with long-term current use of insulin ([facility]) Use with insulin 4 times daily 400 Each 3 07/31/2023 Active Gaviscon 80-14.2 MG Oral Tablet Chewable (Alum Hydroxide-Mag Trisilicate) Take by mouth as needed. 0 Active Nystatin 687267 UNIT/GM External Powder (Nystop)Indications:C andidal intertrigo APPLY TOPICALLY TO AFFECTED AREA 3 TIMES A DAY. APPLY TO AFFECTED AREAS 60 g 1 08/20/2023 Active Atorvastatin Calcium 40 MG Oral Tablet (Lipitor)Indications: Heart failure, systolic, due to idiopathic cardiomyopathy ([facility]),S/P aortic valve replacement,HTN, goal below [...] A1c goal of less than 7.0% ([facility]) Use up to 50 units per day in Omnipod. 5 Each 3 09/11/2023 Active Gabapentin 100 MG Oral Capsule (Neurontin)Indication s:Polyneuropathy associated with underlying disease ([facility]) Take 1 Capsule by mouth [...] eye 09/28/2020 Coronary artery disease invo [place]ving [place] coronary artery of [place] heart without angina pectoris 12/16/2019 Last Assessment [...] interval not displayed. Medication Regimen: o Beta Gean Therapy: Metoprolol Tartrate o CORINA Inhibitor/ARB Therapy: [...] 12/21/2016 Diabetes mellitus 01/05/2014 12/21/2016 LEYVA RESEARCH OTHER*[id number] 01/05/2014 12/21/2016 Axillary pain 11/03/2013 12/21/2016 Obesity, [...] cath 09/201008/26/2011 12/21/2016 FOLLOWING SURGERY, UNSPECIFI ED [facility] 08/25/2011) 08/26/2011 12/21/2016 ADVANCE DIRECTIVE INFORMATION 04/17/2011 12/21/2016 Overview: Yes, Patient instructed to provide copy of advance directive for provider to review and to be scanned into Electronic Medical Record ADVANCE DIRECTIVE INFORMATION 03/01/2011 12/21/2016 Overview: Yes, Patient instructed to provide copy of advance directive for provider to review and to be scanned into Electronic Medical Record [facility] V710 Clinical Trial*[id number] 12/22/2010 04/14/2011 S/P aortic valve replacement 12/01/2010 08/26/2011 S/P AORTIC VALVE REPLACEMENT - #25 pericardial [place] valve 11/01/2010 06/28/2018 Overview: Aortic valve replacement with #25 pericardial [place] valve, model 2800TFX, serial number [id number] (Dr. Walker) [facility] V710 Clinical Trial*[id number] 10/18/2010 11/21/2010 Body mass index (BMI) of [...] 06/07/2018,01/08/20 18,12/05/2017,06/15,10/27/2013,09/12/2013 Pneumococcal Conjugate Vacci ne, 20-valent ([id number]) 06/22/2023 Pneumococcal Polysaccharide PPV23 (Pneumovax) 01/02/2008 Seasonal [...] encounter Miscellaneous Notes * Addendum Note - Saravanan Lux MED ASSIST - 09/26/2023 1:10 PM EST Addended by: SARAVANAN LUX on: 09/26/2023 01:10 PM Modules accepted: Orders documented in this encounter Plan of Treatment Upcoming Encounters Date Type Department Care Team (Late st Contact Info) Description 10/12/2023 10:00 AM EST Home Visit [facility] [address] [address] Jaycee Sorto, RN [address] [address] 10/15/2023 11:00 AM EST Office Visit Cardiology, [facility] [address] [place] [address] Feli Teague PA-C [address] [address] 11/21/2023 9:20 AM EST Office Visit Family Practice [facility] [address] [address] Gregory Rausch MD [address] [address] 12/05/2023 10:39 AM EDT Hospital Encounter [facility], Operating Room [facility] [address] [phone] Ramsey Burnett, DO [address] [address] 12/05/2023 10:39 AM EDT - 12/05/2023 11:32 AM EDT Surgery OR [facility], Operating Room [facility] [address] [phone] Ramsey Burnett, DO [address] [address] LEFT EXTRACAPSULAR CATARACT REMOVAL COMPLEX WITH IOL 12/06/2023 8:45 AM EDT Office Visit Ophthalmology, [facility] [address] [address] Ramsey Burnett, DO [address] [address] 12/13/2023 2:15 PM EDT Office Visit Ophthalmology, [facility] [address] [address] Ramsey Burnett, DO [address] [address] 01/10/2024 2:00 PM EDT Office Visit Ophthalmology, [facility] [address] [address] Ramsey Burnett, DO [address] [facility] [place] [address] 02/04/2024 10:20 AM EDT Office Visit Family [facility] [address] [address] Gregory Rausch MD [address] [place] [address] Scheduled Orders Name Type Priority Associated Diagnoses Orde r Schedule COMPUTERIZED CORNEAL PARAMJIT Procedures Routine Age-related nuclear cataract of left eye Ordered: 09/26/2023 Scheduled Procedures Name Priority Associated Diagnoses Date/Ti [...] 04/09/2023, Additional history exists TSH 06/06/2024 06/06/2023, 0511/2022, 12/22/2022, Additional history exists CKD PHOS USE SMARTSET 79590 06/18/2024 0901/2023, 06/16/2023, 06/15/2023, Additional history exists CKD HGB USE SMARTSET 53886 07/31/202407/31, 07/31/2023, 06/29/2023, Additional history exists Diabetic [...] this encounter Medical Devices Implanted Type Area Emt Basic Device Identifier Shelf Expiration Date Model / Serial / Lot Cath Roselia Single Lumen - [id number] Implanted:Qty : 1 on 03/12/2008 at OR [facility] Left: Chest [employer] *DO NOT USE* 07/25/2012 21-4053-24 / / [id number] Valve Tarsha Aortic [id number] - [id number] Implanted:Qty : 1 on 11/01/2010 at OR [facility] N/A: Heart [employer] DANIEL 05/20/2012 2800TFX-25 / / [id number] Mesh Soft [id number] - [id number] Implanted:Qty : 1 on 10/10/2019 by Gigi Hendrickson MD at [place] [facility] N/A: Abdomen CR BARD : DAVOL [id number] 05/21/2024 [id number] / / [id number] Lens 22.5 Sn60wf - [id number] - [id number] Implanted:Qty : 1 on 09/15/2020 by Renaldo Cook, Cece Acosta MD at OR [facility] Right: Eye IVA : SURGICAL [id number] 05/13/2025 SN60 WF.225 / [id number] documented as of this encounter Procedures Procedure Name Priority Date/Time Associated Diagnosis Comments IOL MEASUREMENTS, IOL MASTER Routine 09/26/2023 1:14 PM EST Age-related nuclear cataract of left eye documented in this encounter Results * IOL MEASUREMENTS, IOL MASTER (09/26/2023 1:14 PM EST) 09/26/2023 1:14 PM EST Ramsey Burnett DO OTHER [facility] OPH documented in this encounter Visit Diagnoses Diagnosis [...] the patient have Health Care Power of Backfiller? No Full Code 10/10/2019 8:40 AM 10/10/2019 5:53 PM This order reflects the patients wishes and were consensually agreed upon. Full Code 11/06/2017 4:55 PM 11/07/2017 7:14 PM This order reflects the patients wishes and were consensually agreed upon. Healthcare Agents on File Name Relationship Healthcare Agent Relationshi p Communication Gigi Gutierrez [facility] Adult Child Health Care Repr esentative (appointed verbally by patient or by statute hierarchy) Care Teams Visual Designer Relationship Specialty Start Date End Date Gregory Rausch MD [address] [place] [address] PCP - General Family Medicine 02/12/20 documented as of this encounter
--- OUTSIDE RECORDS SUMMARY | 2023-10-27 12:10 | External Medical Summary | Summary of Care ---
Author Name Unknown Organization [facility] Address [address] [place] [address] Phone [phone] Care Team Providers Care Boilermaker Helper Name Role Phone Gregory Rausch MD Primary Care Provider [phone] Reason for Visit * Reason Comments Iol Measurement IOL and Paramjit Encounter Details Date Type Department Care Team (Late st Contact Info) Description 09/26/2023 12:45 PM EST Nurse Only Ophthalmology, [facility] [address] [place] [facility] [place] [address] [place], Nurse Oph [facility] [address] [facility] [place] [address] Iol Measurement (IOL and Paramjit) Allergies Active [...] hypoglycemia E11.9 100 Tab 3 07/06/2021 Active Bella Pictures Verio w/Device Kit Use up to 4 times a day E11.9 1 Kit 0 02/10/2022 Active Capital FloatToBeegit Delica Lancets 33G TEST 4 TIMES DAILY [...] long-term current use of insulin ([facility]),Type 2 diabetes mellitus with both eyes affected by mild nonproliferative retinopathy and macular edema, with long-term current use of insulin ([facility]),Type 2 diabetes mellitus with stage 3a chronic kidney disease, with long-term current use of insulin ([facility]) Inject 0.75 mL under the skin once a week. 9 mL 3 02/22/2023 Active Fluticasone Propionate 50 MCG/ACT Nasal Suspension (Flonase)Indications: Dizziness Administer 2 Sprays into each nostril in the morning. 16 g 3 03/01/2023 Active metOLazone 2.5 MG Oral Tablet (Zaroxolyn)Indication s:Acute on chronic heart failure with preserved ejection fraction (HFpEF) ([facility]) One tablet one morning twice [...] ER 10 MEQ Oral Tablet Extended ReleaseIndications:Ac [place] on chronic heart failure with preserved ejection fraction (HFpEF) ([facility]) Take 1 Tablet by mouth [...] goal of less than 7.0% ([facility]),Type 2 diabetes mellitus with stage 3a chronic kidney disease, with long-term current use of insulin ([facility]) Inject 30 Units under the skin at bedtime. 6 mL 2 07/31/2023 Active BD Pen Needle Short U/F 31G X 8 MMIndications:Type 2 diabetes mellitus with hemoglobin A1c goal of less than 7.0% ([facility]),Type 2 diabetes mellitus with stage 3a chronic kidney disease, with long-term current use of insulin ([facility]) Use with insulin 4 times daily 400 Each 3 07/31/2023 Active Gaviscon 80-14.2 MG Oral Tablet Chewable (Alum Hydroxide-Mag Trisilicate) Take by mouth as needed. 0 Active Nystatin 882460 UNIT/GM External Powder (Nystop)Indications:C andidal intertrigo APPLY TOPICALLY TO AFFECTED AREA 3 TIMES A DAY. APPLY TO AFFECTED AREAS 60 g 1 08/20/2023 Active Atorvastatin Calcium 40 MG Oral Tablet (Lipitor)Indications: Heart failure, systolic, due to idiopathic cardiomyopathy ([facility]),S/P aortic valve replacement,HTN, goal below [...] goal of less than 7.0% ([facility]) Use up to 50 units per day in Omnipod. 5 Each 3 09/11/2023 Active Gabapentin 100 MG Oral Capsule (Neurontin)Indication s:Polyneuropathy associated with underlying disease ([facility]) Take 1 Capsule by mouth [...] eye 09/28/2020 Coronary artery disease invo lving [place] coronary artery of [place] heart without angina pectoris 12/16/2019 Last Assessment [...] 12/21/2016 Diabetes mellitus 01/05/2014 12/21/2016 LEYVA RESEARCH OTHER*[id number] 01/05/2014 12/21/2016 Axillary pain 11/03/2013 12/21/2016 Obesity, [...] cath 09/201008/26/2011 12/21/2016 FOLLOWING SURGERY, UNSPECIFI ED ([facility] BSO 08/25/2011) 08/26/2011 12/21/2016 ADVANCE DIRECTIVE INFORMATION 04/17/2011 12/21/2016 Overview: Yes, Patient instructed to provide copy of advance directive for provider to review and to be scanned into Electronic Medical Record ADVANCE DIRECTIVE INFORMATION 03/01/2011 12/21/2016 Overview: Yes, Patient instructed to provide copy of advance directive for provider to review and to be scanned into Electronic Medical Record [facility] V710 Clinical Trial*[id number] 12/22/2010 04/14/2011 S/P aortic valve replacement 12/01/2010 08/26/2011 S/P AORTIC VALVE REPLACEMENT - #25 pericardial Mc valve 11/01/2010 06/28/2018 Overview: Aortic valve replacement with #25 pericardial Mc valve, model 2800TFX, serial number [id number] (Dr. Walker) [facility] V710 Clinical Trial*[id number] 10/18/2010 11/21/2010 Body mass index (BMI) of [...] 06/07/2018,01/08/20 18,12/05/2017,06/15,10/27/2013,09/12/2013 Pneumococcal Conjugate Vacci ne, 20-valent ([id number]) 06/22/2023 Pneumococcal Polysaccharide PPV23 (Pneumovax) 01/02/2008 Seasonal [...] Description 10/12/2023 10:00 AM EST Home Visit [facility] [address] [address] Jaycee Sorto, RN [address] [address] 10/15/2023 11:00 AM EST Office Visit Cardiology, [facility] [address] [place] [address] Feli Teague PA-C [address] [address] 11/21/2023 9:20 AM EST Office Visit Family Practice [facility] [address] [place] [address] Gregory Rausch MD [address] [address] 12/05/2023 10:39 AM EDT Hospital Encounter OR [facility], Operating Room [facility] [address] [address] Ramsey Burnett, DO [address] [address] 12/05/2023 10:39 AM EDT - 12/05/2023 11:32 AM EDT Surgery OR [facility], Operating Room [facility] [address] [address] Ramsey Burnett, DO [address] [address] LEFT EXTRACAPSULAR CATARACT REMOVAL COMPLEX WITH IOL 12/06/2023 8:45 AM EDT Office Visit Ophthalmology, [facility] [address] [address] Ramsey Burnett, DO [address] [address] 12/13/2023 2:15 PM EDT Office Visit Ophthalmology, [facility] [address] [address] Ramsey Burnett, DO [address] [address] 01/10/2024 2:00 PM EDT Office Visit Ophthalmology, [facility] [address] [place] [address] Ramsey Burnett, DO [address] [facility] [place] [address] 02/04/2024 10:20 AM EDT Office Visit [facility] [address] [address] Gregory Rausch MD [address] [place] [address] Scheduled Procedures Name Priority Associated Diagnoses Date/Ti [...] Additional history exists CKD PHOS USE SMARTSET 30002 06/18/202405/26, 06/16/2023, 06/15/2023, Additional history exists CKD HGB USE SMARTSET 88165 07/31/202407/31, 07/31/2023, 06/29/2023, Additional history exists Diabetic [...] this encounter Medical Devices Implanted Type Area Ski Top Trimmer Device Identifier Shelf Expiration Date Model / Serial / Lot Cath Roselia Single Lumen - [id number] Implanted:Qty : 1 on 03/12/2008 at OR [facility] Left: Chest [employer] *DO NOT USE* 07/25/2012 21-4053-24 / / [id number] Valve Tarsha Aortic [id number] - [id number] Implanted:Qty : 1 on 11/01/2010 at OR [facility] N/A: Heart [employer] DANIEL 05/20/2012 2800TFX-25 / / [id number] Mesh Soft [id number] - [id number] Implanted:Qty : 1 on 10/10/2019 by Gigi Hendrickson MD at [place] [facility] N/A: Abdomen CR BARD : DAVOL [id number] 05/21/2024 [id number] / / [id number] Lens 22.5 Sn60wf - [id number] - [id number] Implanted:Qty : 1 on 09/15/2020 by Cece Roland MD at OR [facility] Right: Eye IVA : SURGICAL [id number] 05/13/2025 SN60 WF.225 / [id number] / [id number] documented as of this encounter Procedures [...] Ramsey Burnett DO MEDICINE Performing Organization Address [facility] de Phone Number [facility]PH[facility] * IOL MEASUREMENTS, IOL MASTER (09/26/2023 1:14 PM EST) 09/26/2023 1:14 PM EST Ramsey Burnett DO OTHER Performing Organization Address [facility] Co de Phone Number [facility] documented [...] the patient have Health Care Power of Branch Office Administrator? No Full Code 10/10/2019 8:40 AM 10/10/2019 5:53 PM This order reflects the patients wishes and were consensually agreed upon. Full Code 11/06/2017 4:55 PM 11/07/2017 7:14 PM This order reflects the patients wishes and were consensually agreed upon. Healthcare Agents on File Name Relationship Healthcare Agent Relationshi p Communication Gigi Gutierrez [facility] Adult Child Health Care Repr esentative (appointed verbally by patient or by statute hierarchy) Care Teams Boilermaker Helper Relationship Specialty Start Date End Date Gregory Rausch MD [address] [facility] [place] [address] PCP - General Family Medicine 02/12/20 documented as of this encounter
--- OUTSIDE RECORDS SUMMARY | 2023-10-27 12:11 | External Medical Summary | Summary of Care ---
Author Name Unknown Organization [facility] Address [address] [place] [address] Phone [phone] Care Team Providers Care Diabetes Solutions Specialist Name Role Phone Gregory Rausch MD Primary Care Provider [phone] Reason for Visit * Reason Comments Iol Measurement IOL and Yusef Encounter Details Date Type Department Care Team (Late st Contact Info) Description 09/26/2023 12:45 PM EST Nurse Only Ophthalmology, [facility] [address] [place] [address] [place], Nurse Oph [facility] [address] [place] [facility] [address] Iol Measurement (IOL and Yusef) Allergies Active Allergy Reactions Criticality Noted Date [...] hypoglycemia E11.9 100 Tab 3 07/06/2021 Active ScratchJr Verio w/Device Kit Use up to 4 times a day E11.9 1 Kit 0 02/10/2022 Active Second PorchToCloud.CM Delica Lancets 33G TEST 4 TIMES DAILY [...] mononeuropathy, with long-term current use of insulin ([facility]),Type 2 diabetes mellitus with both eyes affected by mild nonproliferative retinopathy and macular edema, with long-term current use of insulin ([facility]),Type 2 diabetes mellitus with stage 3a chronic kidney disease, with long-term current use of insulin ([facility]) Inject 0.75 mL under the skin once a week. 9 mL 3 02/22/2023 Active Fluticasone Propionate 50 MCG/ACT Nasal Suspension (Flonase)Indications: Dizziness Administer 2 Sprays into each nostril in the morning. 16 g 3 03/01/2023 Active metOLazone 2.5 MG Oral Tablet (Zaroxolyn)Indication s:Acute on chronic heart failure with preserved ejection fraction (HFpEF) ([facility]) One tablet one morning twice per week [...] heart failure with preserved ejection fraction (HFpEF) ([facility]) Take 1 Tablet by mouth in the [...] hemoglobin A1c goal of less than 7.0% ([facility]),Type 2 diabetes mellitus with stage 3a chronic kidney disease, with long-term current use of insulin ([facility]) Inject 30 Units under the skin at bedtime. 6 mL 2 07/31/2023 Active BD Pen Needle Short U/F 31G X 8 MMIndications:Type 2 diabetes mellitus with hemoglobin A1c goal of less than 7.0% ([facility]),Type 2 diabetes mellitus with stage 3a chronic kidney disease, with long-term current use of insulin ([facility]) Use with insulin 4 times daily 400 Each 3 07/31/2023 Active Gaviscon 80-14.2 MG Oral Tablet Chewable (Alum Hydroxide-Mag Trisilicate) Take by mouth as needed. 0 Active Nystatin 622740 UNIT/GM External Powder (Nystop)Indications:C andidal intertrigo APPLY TOPICALLY TO AFFECTED AREA 3 TIMES A DAY. APPLY TO AFFECTED AREAS 60 g 1 08/20/2023 Active Atorvastatin Calcium 40 MG Oral Tablet (Lipitor)Indications: Heart failure, systolic, due to idiopathic cardiomyopathy ([facility]),S/P aortic valve replacement,HTN, goal below 140/80,Dyslipidemia, goal [...] hemoglobin A1c goal of less than 7.0% ([facility]) Use up to 50 units per day in Omnipod. 5 Each 3 09/11/2023 Active Gabapentin 100 MG Oral Capsule (Neurontin)Indication s:Polyneuropathy associated with underlying disease ([facility]) Take 1 Capsule by mouth in the [...] eye 09/28/2020 Coronary artery disease invo lving [place] coronary artery of [place] heart without angina pectoris 12/16/2019 Last Assessment [...] 12/21/2016 Diabetes mellitus 01/05/2014 12/21/2016 LEYVA RESEARCH OTHER*[id number] 01/05/2014 12/21/2016 Axillary pain 11/03/2013 12/21/2016 Obesity, [...] cath 09/201008/26/2011 12/21/2016 FOLLOWING SURGERY, UNSPECIFI ED ([facility] BSO 08/25/2011) 08/26/2011 12/21/2016 ADVANCE DIRECTIVE INFORMATION 04/17/2011 12/21/2016 Overview: Yes, Patient instructed to provide copy of advance directive for provider to review and to be scanned into Electronic Medical Record ADVANCE DIRECTIVE INFORMATION 03/01/2011 12/21/2016 Overview: Yes, Patient instructed to provide copy of advance directive for provider to review and to be scanned into Electronic Medical Record [facility] V710 Clinical Trial*[id number] 12/22/2010 04/14/2011 S/P aortic valve replacement 12/01/2010 08/26/2011 S/P AORTIC VALVE REPLACEMENT - #25 pericardial Mc valve 11/01/2010 06/28/2018 Overview: Aortic valve replacement with #25 pericardial Mc valve, model 2800TFX, serial number [id number] (Dr. Walker) [facility] V710 Clinical Trial*[id number] 10/18/2010 11/21/2010 Body mass index (BMI) of [...] 06/07/2018,01/08/20 18,12/05/2017,06/15,10/27/2013,09/12/2013 Pneumococcal Conjugate Vacci ne, 20-valent ([id number]) 06/22/2023 Pneumococcal Polysaccharide PPV23 (Pneumovax) 01/02/2008 Seasonal [...] report for interpretation. documented in this encounter Plan of Treatment Upcoming Encounters Date Type Department Care Team (Late st Contact Info) Description 10/12/2023 10:00 AM EST Home Visit [facility] [address] [address] Jaycee Sorto RN [address] [address] 10/15/2023 11:00 AM EST Office Visit Cardiology, [facility] [address] [address] Feli Teague PA-C [address] [place] [address] 11/21/2023 9:20 AM EST Office Visit Family Practice [facility] [address] [address] Gregory Rausch MD [address] [place] [address] 12/05/2023 10:39 AM EDT Hospital Encounter OR [facility], Operating Room [facility] [address] [place] [phone] Ramsey Burnett, DO [address] [address] 12/05/2023 10:39 AM EDT - 12/05/2023 11:32 AM EDT Surgery OR [facility], Operating Room [facility] [address] [place] [phone] Ramsey Burnett, DO [address] [address] LEFT EXTRACAPSULAR CATARACT REMOVAL COMPLEX WITH IOL 12/06/2023 8:45 AM EDT Office Visit Ophthalmology, [facility] [address] [facility] [place] [address] Ramsey Burnett, DO [address] [address] 12/13/2023 2:15 PM EDT Office Visit Ophthalmology, [facility] [address] [facility] [place] [address] Ramsey Burnett, DO [address] [address] 01/10/2024 2:00 PM EDT Office Visit Ophthalmology, [facility] [address] [facility] [place] [address] Ramsey Burnett, DO [address] [address] 02/04/2024 10:20 AM EDT Office Visit Family Practice [facility] [address] [facility] [place] [address] Gregory Rausch MD [address] [place] [address] Scheduled Procedures Name Priority Associated Diagnoses Date/Ti [...] Additional history exists CKD PHOS USE SMARTSET 41857 06/18/202405/26, 06/16/2023, 06/15/2023, Additional history exists CKD HGB USE SMARTSET 16451 07/31/202407/31, 07/31/2023, 06/29/2023, Additional history exists Diabetic [...] this encounter Medical Devices Implanted Type Area Door Operator Device Identifier Shelf Expiration Date Model / Serial / Lot Cath Roselia Single Lumen - [id number] Implanted:Qty : 1 on 03/12/2008 at OR [facility] Left: Chest [employer] *DO NOT USE* 07/25/2012 21-4053-24 / / [id number] Valve Tarsha Aortic [id number] - [id number] Implanted:Qty : 1 on 11/01/2010 at OR [facility] N/A: Heart [employer] DANIEL 05/20/2012 2800TFX-25 / / [id number] Mesh Soft [id number] - [id number] Implanted:Qty : 1 on 10/10/2019 by Gigi Hendrickson MD at OR [facility] N/A: Abdomen CR BARD : DAVOL [id number] 05/21/2024 [id number] / / [id number] Lens 22.5 Sn60wf - [id number] - [id number] Implanted:Qty : 1 on 09/15/2020 by Macario PanvinCece ernandez MD at OR [facility] Right: Eye IVA : SURGICAL [id number] 05/13/2025 SN60 WF.225 / [id number] / [id number] documented as of this encounter Advance [...] the patient have Health Care Power of Adolescent Specialist? No Full Code 10/10/2019 8:40 AM 10/10/2019 5:53 PM This order reflects the patients wishes and were consensually agreed upon. Full Code 11/06/2017 4:55 PM 11/07/2017 7:14 PM This order reflects the patients wishes and were consensually agreed upon. Healthcare Agents on File Name Relationship Healthcare Agent Relationshi p Communication Gigi Gutierrez [facility] Health Care Repr esentative (appointed verbally by patient or by statute hierarchy) Care Teams Diabetes Solutions Specialist Relationship Specialty Start Date End Date Gregory Rausch MD [address] [address] PCP - General Family Medicine 02/12/20 documented as of this encounter
--- OUTSIDE RECORDS SUMMARY | 2023-10-27 12:11 | External Medical Summary | Summary of Care ---
Author Name Unknown Organization [facility] Address [address] [place] [address] Phone [phone] Care Team Providers Care Elevator Builder Name Role Phone Gregory Rausch MD Primary Care Provider [phone] Reason for Visit * Reason Comments Iol Measurement IOL and Paramjit Encounter Details Date Type Department Care Team (Late st Contact Info) Description 09/26/2023 12:45 PM EST Nurse Only Ophthalmology, [facility] [address] [facility] [address] [place], Nurse Oph [facility] [address] [facility] [address] Iol Measurement (IOL and Paramjit) Allergies Active [...] hypoglycemia E11.9 100 Tab 3 07/06/2021 Active Mantex Verio w/Device Kit Use up to 4 times a day E11.9 1 Kit 0 02/10/2022 Active ONL TherapeuticsToFertility Focus Delica Lancets 33G TEST 4 TIMES DAILY [...] [facility]),Type 2 diabetes mellitus with both eyes affected by mild nonproliferative retinopathy and macular edema, with long-term current use of insulin ([facility]),Type 2 diabetes mellitus with stage 3a chronic kidney disease, with long-term current use of insulin ([facility]) Inject 0.75 mL under the skin once [...] ER 10 MEQ Oral Tablet Extended ReleaseIndications:Ac [place] on chronic heart failure with preserved ejection [...] by mouth as needed. 0 Active Nystatin 418509 UNIT/GM External Powder (Nystop)Indications:C andidal intertrigo APPLY [...] eye 09/28/2020 Coronary artery disease invo lving [place] coronary artery of [place] heart without angina pectoris 12/16/2019 Last Assessment [...] 12/21/2016 Diabetes mellitus 01/05/2014 12/21/2016 LEYVA RESEARCH OTHER*[id number] 01/05/2014 12/21/2016 Axillary pain 11/03/2013 12/21/2016 Obesity, [...] cath 09/201008/26/2011 12/21/2016 FOLLOWING SURGERY, UNSPECIFI ED ([facility] BSO 08/25/2011) 08/26/2011 12/21/2016 ADVANCE DIRECTIVE INFORMATION 04/17/2011 12/21/2016 Overview: Yes, Patient instructed to provide copy of advance directive for provider to review and to be scanned into Electronic Medical Record ADVANCE DIRECTIVE INFORMATION 03/01/2011 12/21/2016 Overview: Yes, Patient instructed to provide copy of advance directive for provider to review and to be scanned into Electronic Medical Record [facility] V710 Clinical Trial*[id number] 12/22/2010 04/14/2011 S/P aortic valve replacement 12/01/2010 08/26/2011 S/P AORTIC VALVE REPLACEMENT - #25 pericardial [place] valve 11/01/2010 06/28/2018 Overview: Aortic valve replacement with #25 pericardial [place] valve, model 2800TFX, serial number [id number] (Dr. Walker) [facility] V710 Clinical Trial*[id number] 10/18/2010 11/21/2010 Body mass index (BMI) of [...] 06/07/2018,01/08/20 18,12/05/2017,06/15,10/27/2013,09/12/2013 Pneumococcal Conjugate Vacci ne, 20-valent ([id number]) 06/22/2023 Pneumococcal Polysaccharide PPV23 (Pneumovax) 01/02/2008 Seasonal [...] EST Home Visit [facility] [address] [address] Jaycee Sorto, RN [address] [address] 10/15/2023 11:00 AM EST Office Visit Cardiology, [facility] [address] [place] [address] Feli Teague PA-C [address] [address] 11/21/2023 9:20 AM EST Office Visit Family Practice [facility] [address] [place] [address] Gregory Rausch MD [address] [place] [address] 12/05/2023 10:39 AM EDT Hospital Encounter OR [facility], Operating Room [facility] [address] [place] [address] Ramsey Burnett, DO [address] [address] 12/05/2023 10:39 AM EDT - 12/05/2023 11:32 AM EDT Surgery OR [facility], Operating Room [facility] [address] [place] [address] Ramsey Burnett, DO [address] [address] LEFT EXTRACAPSULAR CATARACT REMOVAL COMPLEX WITH IOL 12/06/2023 8:45 AM EDT Office Visit Ophthalmology, [facility] [address] [address] Ramsey Burnett, DO [address] [address] 12/13/2023 2:15 PM EDT Office Visit Ophthalmology, [facility] [address] [address] Ramsey Burnett, DO [address] [address] 01/10/2024 2:00 PM EDT Office Visit Ophthalmology, [facility] [address] [address] Ramsey Burnett, DO [address] [facility] [place] [address] 02/04/2024 10:20 AM EDT Office Visit Family [facility] [address] [address] Gregory Rausch MD [address] [place] [address] Scheduled Orders Name Type Priority Associated Diagnoses [...] Additional history exists CKD PHOS USE SMARTSET 84751 06/18/2024 0901/2023, 06/16/2023, 06/15/2023, Additional history exists CKD HGB USE SMARTSET 82288 07/31/202407/31, 07/31/2023, 06/29/2023, Additional history exists Diabetic [...] this encounter Medical Devices Implanted Type Area Cut Off Sawyer Device Identifier Shelf Expiration Date Model / Serial / Lot Cath Roselia Single Lumen - [id number] Implanted:Qty : 1 on 03/12/2008 at OR [facility] Left: Chest [employer] *DO NOT USE* 07/25/2012 21-4053-24 / / [id number] Valve Tarsha Aortic [id number] - [id number] Implanted:Qty : 1 on 11/01/2010 at OR [facility] N/A: [facility] DANIEL 05/20/2012 2800TFX-25 / / [id number] Mesh Soft [id number] - [id number] Implanted:Qty : 1 on 10/10/2019 by Gigi Hendricskon [place] [facility] [place]/A[place] Abdomen CR BARD : DAVOL [id number] 05/21/2024 [id number] / / [id number] Lens 22.5 Sn60wf - [id number] - [id number] Implanted:Qty : 1 on 09/15/2020 by Renaldo Cook, Cece Acosta MD at OR [facility] Right: Eye IVA : SURGICAL [id number] 05/13/2025 SN60 WF.225 / [id number] / [id number] documented as of this encounter Visit Diagnoses Diagnosis Age-related nuclear [...] the patient have Health Care Power of Emergency Room Orderly? No Full Code 10/10/2019 8:40 AM 10/10/2019 5:53 PM This order reflects the patients wishes and were consensually agreed upon. Full Code 11/06/2017 4:55 PM 11/07/2017 7:14 PM This order reflects the patients wishes and were consensually agreed upon. Healthcare Agents on File Name Relationship Healthcare Agent [facility] p Communication Gigi Rose Adult Child Health Care Repr esentative (appointed verbally by patient or by statute hierarchy) Care Teams Elevator Builder Relationship Specialty Start Date End Date Gregory Rausch MD [address] [address] PCP - General Family Medicine 02/12/20 documented as of this encounter
--- OUTSIDE RECORDS SUMMARY | 2023-10-27 12:11 | External Medical Summary | Summary of Care ---
Author Name Unknown Organization [facility] Address [address] [place] [address] Phone [phone] Care Team Providers Care Cooker Tender Name Role Phone Gregory Rausch MD Primary Care Provider [phone] Reason for Visit * Reason Comments Iol Measurement IOL and Paramjit Encounter Details Date Type Department Care Team (Late st Contact Info) Description 09/26/2023 12:45 PM EST Nurse Only Ophthalmology, [facility] [address] [place] [address] [place], Nurse Oph [facility] [address] [place] [address] Iol Measurement (IOL and Paramjit) Allergies Active [...] hypoglycemia E11.9 100 Tab 3 07/06/2021 Active TidalScale Verio w/Device Kit Use up to 4 times a day E11.9 1 Kit 0 02/10/2022 Active LigerTailToMines.io Delica Lancets 33G TEST 4 TIMES DAILY [...] use of insulin ([facility]) Inject 0.75 mL under the [...] ER 10 MEQ Oral Tablet Extended ReleaseIndications:Ac [place] on chronic heart failure with preserved ejection [...] by mouth as needed. 0 Active Nystatin 013496 UNIT/GM External Powder (Nystop)Indications:C andidal intertrigo APPLY [...] eye 09/28/2020 Coronary artery disease invo lving [place] coronary artery of [place] heart without angina pectoris 12/16/2019 Last Assessment [...] 12/21/2016 Diabetes mellitus 01/05/2014 12/21/2016 LEYVA RESEARCH OTHER*[id number] 01/05/2014 12/21/2016 Axillary pain 11/03/2013 12/21/2016 Obesity, [...] cath 09/201008/26/2011 12/21/2016 FOLLOWING SURGERY, UNSPECIFI ED ([facility] BSO 08/25/2011) 08/26/2011 12/21/2016 ADVANCE DIRECTIVE INFORMATION 04/17/2011 12/21/2016 Overview: Yes, Patient instructed to provide copy of advance directive for provider to review and to be scanned into Electronic Medical Record ADVANCE DIRECTIVE INFORMATION 03/01/2011 12/21/2016 Overview: Yes, Patient instructed to provide copy of advance directive for provider to review and to be scanned into Electronic Medical Record [facility] V710 Clinical Trial*[id number] 12/22/2010 04/14/2011 S/P aortic valve replacement 12/01/2010 08/26/2011 S/P AORTIC VALVE REPLACEMENT - #25 pericardial Hernandez valve 11/01/2010 06/28/2018 Overview: Aortic valve replacement with #25 pericardial Hernandez valve, model 2800TFX, serial number [id number] (Dr. Walker) [facility] V710 Clinical Trial*[id number] 10/18/2010 11/21/2010 Body mass index (BMI) of [...] 06/07/2018,01/08/20 18,12/05/2017,06/15,10/27/2013,09/12/2013 Pneumococcal Conjugate Vacci ne, 20-valent ([id number]) 06/22/2023 Pneumococcal Polysaccharide PPV23 (Pneumovax) 01/02/2008 Seasonal [...] Description 10/12/2023 10:00 AM EST Home Visit [facility] [address] [address] Jaycee Sorto, RN [address] [address] 10/15/2023 11:00 AM EST Office Visit Cardiology, [facility] [address] [place] [address] Feli Teague PA-C [address] [address] 11/21/2023 9:20 AM EST Office Visit Family Practice [facility] [address] [place] [address] Gregory Rausch MD [address] [address] 12/05/2023 10:39 AM EDT Hospital Encounter [facility], Operating Room [facility] [address] [address] Ramsey Burnett, DO [address] [address] 12/05/2023 10:39 AM EDT - 12/05/2023 11:32 AM EDT Surgery OR [facility], Operating Room [facility] [address] [address] Ramsey Burnett, DO [address] [address] LEFT EXTRACAPSULAR CATARACT REMOVAL COMPLEX WITH IOL 12/06/2023 8:45 AM EDT Office Visit Ophthalmology, [facility] [address] [address] Ramsey Bunrett, DO [address] [address] 12/13/2023 2:15 PM EDT Office Visit Ophthalmology, [facility] [address] [address] Ramsey Burnett, DO [address] [address] 01/10/2024 2:00 PM EDT Office Visit Ophthalmology, [facility] [address] [address] Ramsey Burnett, DO [address] [facility] [place] [address] 02/04/2024 10:20 AM EDT Office Visit Family [facility] [address] [address] Gregory Rausch MD [address] [place] [address] Scheduled Orders Name Type Priority Associated Diagnoses [...] Additional history exists CKD PHOS USE SMARTSET 49607 06/18/2024 0901/2023, 06/16/2023, 06/15/2023, Additional history exists CKD HGB USE SMARTSET 99796 07/31/202407/31, 07/31/2023, 06/29/2023, Additional history exists Diabetic [...] this encounter Medical Devices Implanted Type Area Dependency Case Manager Device Identifier Shelf Expiration Date Model / Serial / Lot Cath Roselia Single Lumen - [id number] Implanted:Qty : 1 on 03/12/2008 at OR [facility] Left: Chest [employer] *DO NOT USE* 07/25/2012 21-4053-24 / / [id number] Valve Tarsha Aortic [id number] - [id number] Implanted:Qty : 1 on 11/01/2010 at OR [facility] N/A: Heart [employer] DANIEL 05/20/2012 2800TFX-25 / / [id number] Mesh Soft [id number] - [id number] Implanted:Qty : 1 on 10/10/2019 by Gigi Hendrickson MD at OR [facility] N/A: Abdomen CR BARD : DAVOL [id number] 05/21/2024 [id number] / / [id number] Lens 22.5 Sn60wf - [id number] - [id number] Implanted:Qty : 1 on 09/15/2020 by Renaldo Cook, Cece Acosta MD at [facility] Right: Eye IVA : SURGICAL [id number] 05/13/2025 SN60 WF.225 / [id number] / [id number] documented as of this encounter Visit [...] the patient have Health Care Power of Fur Mixer? No Full Code 10/10/2019 8:40 AM 10/10/2019 5:53 PM This order reflects the patients wishes and were consensually agreed upon. Full Code 11/06/2017 4:55 PM 11/07/2017 7:14 PM This order reflects the patients wishes and were consensually agreed upon. Healthcare Agents on File Name Relationship Healthcare Agent [facility] p Communication Gigi Rose Adult Child Health Care Repr esentative (appointed verbally by patient or by statute hierarchy) Care Teams Cooker Tender Relationship Specialty Start Date End Date Gregory Rausch MD [address] [address] PCP - General Family Medicine 02/12/20 documented as of this encounter
--- OUTSIDE RECORDS SUMMARY | 2023-10-27 12:11 | External Medical Summary | Summary of Care ---
Author Name Unknown Organization [facility] Address [address] [place] [address] Phone [phone] Care Team Providers Care Public Welfare Worker Name Role Phone Gregory Rausch MD Primary Care Provider [phone] Reason for Visit * Reason Onset Date Comments [facility]: Maintenance 09/20/2023 Encounter Details Date Type Department Care Team (Late st Contact Info) Description 09/20/2023 Telephone [facility], [place] [address] [facility] [place] [address] [facility], Nurse [facility] [address] [place] [address] [facility]: Maintenance Allergies Active Allergy Reactions Criticality Noted Date Comments Adhesive Tape 07/02/2017 Can tolerate band-aids Glycerin Other (Please comment) 03/12/2008 Topical agents with glycein-burning & itching Lactose 12/09/2014 Dairy - gas Lisinopril Cough 01/21/2010 Monosodium Glutamate Edema Other 03/12/2008 Hands and feet Penicillins Rash 11/14/2007 documented as of this encounter (statuses as of 09/20/2023) Medications Medication Sig Dispensed Refills Start Date [...] hypoglycemia E11.9 100 Tab 3 07/06/2021 Active MROToAppirio Verio w/Device Kit Use up to 4 times a day E11.9 1 Kit 0 02/10/2022 Active [employer]ToAppir[employer] Delica Lancets 33G TEST 4 TIMES DAILY [...] use of insulin ([facility]),Type 2 diabetes mellitus with both eyes affected by mild nonproliferative retinopathy and macular edema, with long-term current use of insulin ([facility]),Type 2 diabetes mellitus with stage 3a chronic kidney disease, with long-term current use of insulin ([facility]) Inject 0.75 mL under the skin once a week. 9 mL 3 02/22/2023 Active Fluticasone Propionate 50 MCG/ACT Nasal Suspension (Flonase)Indications: Dizziness Administer 2 Sprays into each nostril in the morning. 16 g 3 03/01/2023 Active metOLazone 2.5 MG Oral Tablet (Zaroxolyn)Indication s:Acute on chronic heart failure with preserved ejection fraction (HFpEF) ([facility]) One tablet one morning twice per week [...] ER 10 MEQ Oral Tablet Extended ReleaseIndications:Ac [place] on chronic heart failure with preserved ejection fraction (HFpEF) ([facility]) Take 1 Tablet by mouth in the [...] less than 7.0% ([facility]),Type 2 diabetes mellitus with stage 3a chronic kidney disease, with long-term current use of insulin ([facility]) Inject 30 Units under the skin at bedtime. 6 mL 2 07/31/2023 Active BD Pen Needle Short U/F 31G X 8 MMIndications:Type 2 diabetes mellitus with hemoglobin A1c goal of less than 7.0% ([facility]),Type 2 diabetes mellitus with stage 3a chronic kidney disease, with long-term current use of insulin ([facility]) Use with insulin 4 times daily 400 Each 3 07/31/2023 Active Gaviscon 80-14.2 MG Oral Tablet Chewable (Alum Hydroxide-Mag Trisilicate) Take by mouth as needed. 0 Active Nystatin 715670 UNIT/GM External Powder (Nystop)Indications:C andidal intertrigo APPLY TOPICALLY TO AFFECTED AREA 3 TIMES A DAY. APPLY TO AFFECTED AREAS 60 g 1 08/20/2023 Active Atorvastatin Calcium 40 MG Oral Tablet (Lipitor)Indications: Heart failure, systolic, due to idiopathic cardiomyopathy ([facility]),S/P aortic valve replacement,HTN, goal below 140/80,Dyslipidemia, goal [...] to face 420 g 0 08/30/2023 Active Metoprolol Tartrate 25 MG Oral Tablet (Lopressor) Take 1 Tablet by mouth in the morning and 1 Tablet before bedtime. 60 Tablet 2 09/01/2023 Active metFORMIN HCl 1000 MG Oral Tablet [...] less than 7.0% ([facility]) Use up to 50 units per day [...] as needed 200 Each 5 09/20/2023 Active documented as of this encounter (statuses as of 09/20/2023) Active Problems Problem Noted Date Diagnosed Date [...] as of this encounter (statuses as of 09/20/2023) Resolved Problems Problem Noted Date Diagnosed Date [...] interval not displayed. Medication Regimen: o Beta Gnea Therapy: Metoprolol Tartrate o CORINA Inhibitor/ARB Therapy: [...] 12/21/2016 Diabetes mellitus 01/05/2014 12/21/2016 LEYVA RESEARCH OTHER*[id number] 01/05/2014 12/21/2016 Axillary pain 11/03/2013 12/21/2016 Obesity, [...] 12/21/2016 FOLLOWING SURGERY, UNSPECIFI ED ([facility] BSO 08/25/2011) 08/26/2011 12/21/2016 ADVANCE DIRECTIVE INFORMATION [...] [facility] V710 Clinical Trial*[id number] 12/22/2010 04/14/2011 S/P aortic valve replacement 12/01/2010 08/26/2011 S/P AORTIC VALVE REPLACEMENT - #25 pericardial Mc valve 11/01/2010 06/28/2018 Overview: Aortic valve replacement with #25 pericardial Mc valve, model 2800TFX, serial number [id number] (Dr. Walker) [facility] V710 Clinical Trial*[id number] 10/18/2010 11/21/2010 Body mass index (BMI) of [...] as of this encounter (statuses as of 09/20/2023) Immunizations Name Administration Dates Next Due COVID-19 mRNA, LNP-s, No Pre serve, 2-Dose Series (Moderna) 10/25/2021,02/16/2021,01/18/2021 HEP A - Hepatitis A (Adult > 18 yrs) 06/07/2018, 12/05/2017 Hepatitis B, 20+ yrs 06/07/2018,01/08/20 18,12/05/2017,06/15,10/27/2013,09/12/2013 Pneumococcal Conjugate Vacci ne, 20-valent ([id number]) 06/22/2023 Pneumococcal Polysaccharide PPV23 (Pneumovax) 01/02/2008 Seasonal [...] encounter Miscellaneous Notes * Telephone Encounter - Kenia Tapia LPN - 09/20/2023 3:02 PM EST Received call from pharmacist at [facility] needing order for syringes for patients omnipod Pending along with alcohol swabs documented in this encounter Plan of Treatment Upcoming Encounters Date Type Department Care Team (Latest Contact Info) Description 09/26/2023 10:40 AM EST Pharmacy Pharmacy, [facility] [address] [place] [address] Pharmacist1, [facility] [address] [place] [address] 09/26/2023 11:00 AM EST NeuroDiagnostic Study Neurophysiology [facility] [address] [place] [address] Thomas Medina, DO [address] [place] [address] 09/26/2023 12:00 PM EST Nurse Only Ophthalmology, [facility] [place] [address] [facility] [place] [address] Nurse Paulina Mitchell [address] [place] [address] 10/12/2023 10:00 AM EST [facility] [address] [place] [address] Jaycee Sorto, RN [address] [place] [address] 10/15/2023 11:00 AM EST Office Visit Cardiology, [facility] [address] [place] [address] Feli Teague PA-C [address] [place] [address] 11/21/2023 9:20 AM EST Office Visit Family Practice [facility] [address] [place] [address] Gregory Rausch MD [address] [place] [address] 12/05/2023 10:39 AM EDT Hospital Encounter OR [facility], Operating Room [facility] [address] [place] [phone] Ramsey Burnett, DO [address] [address] 12/05/2023 10:39 AM EDT - 12/05/2023 11:32 AM EDT Surgery OR [facility], Operating Room [facility] [address] [place] [address] Ramsey Burnett, DO [address] [address] LEFT EXTRACAPSULAR CATARACT REMOVAL COMPLEX WITH IOL 12/06/2023 8:45 AM EDT Office Visit Ophthalmology, [facility] [address] [place] [address] Ramsey Burnett, DO [address] [address] 12/13/2023 2:15 PM EDT Office Visit Ophthalmology, [facility] [address] [facility] [place] [address] Ramsey Burnett, DO [address] [facility] [place] [address] 01/10/2024 2:00 PM EDT Office Visit Ophthalmology, [facility] [address] [facility] [place] [address] Ramsey Burnett, DO [address] [facility] [place] [address] 02/04/2024 10:20 AM EDT Office Visit Family Practice [facility] [address] [facility] [place] [address] Gregory Rausch MD [address] [facility] [place] [address] Scheduled Procedures Name Priority Associated Diagnoses Date/Ti [...] Additional history exists CKD PHOS USE SMARTSET 76796 06/18/202405/26, 06/16/2023, 06/15/2023, Additional history exists CKD HGB USE SMARTSET 54384 07/31/202407/31, 07/31/2023, 06/29/2023, Additional history exists Diabetic [...] this encounter Medical Devices Implanted Type Area Maintenance Pipefitter Device Identifier Shelf Expiration Date Model / Serial / Lot Cath Roselia Single Lumen - [id number] Implanted:Qty : 1 on 03/12/2008 at OR [facility] Left: Chest [employer] *DO NOT USE* 07/25/2012 21-4053-24 / / [id number] Valve Tarsha Aortic [id number] - [id number] Implanted:Qty : 1 on 11/01/2010 at OR [facility] N/A: Heart [employer] DANIEL 05/20/2012 2800TFX-25 / / [id number] Mesh Soft [id number] - [id number] Implanted:Qty : 1 on 10/10/2019 by Gigi Hendrickson [place] [facility] [place] N/A: Abdomen CR BARD : DAVOL [id number] 05/21/2024 [id number] / / [id number] Lens 22.5 Sn60wf - [id number] - [id number] Implanted:Qty : 1 on 09/15/2020 by Renaldo Cook, Cece Acosta MD at [facility] Right: Eye IVA : SURGICAL [id number] 05/13/2025 SN60 WF.225 / [id number] / [id number] documented as of this encounter Advance [...] the patient have Health Care Power of Technical Publications Manager? No Full Code 10/10/2019 8:40 AM [...] patient or by statute hierarchy) Care Teams Public Welfare Worker Relationship Specialty Start Date End Date Gregory Rausch MD [address] [place] [address] [address] PCP - General Family Medicine 02/12/20 documented as of this encounter
--- OUTSIDE RECORDS SUMMARY | 2023-10-27 12:11 | External Medical Summary | Summary of Care ---
Author Name Unknown Organization [facility] Address [address] [place] [address] Phone [phone] Care Team Providers Care Target Aircraft Technician Name Role Phone Gregory Rausch MD Primary Care Provider [phone] Reason for Visit * Reason Comments Iol Measurement IOL and Paramjit Encounter Details Date Type Department Care Team (Late st Contact Info) Description 09/26/2023 12:45 PM EST Nurse Only Ophthalmology, [facility] [address] [place] [facility] [place] [address] [place], Nurse Oph [facility] [address] [facility] [place] [address] Iol Measurement (IOL and Paramjit) Allergies Active [...] hypoglycemia E11.9 100 Tab 3 07/06/2021 Active SmartProcure Verio w/Device Kit Use up to 4 times a day E11.9 1 Kit 0 02/10/2022 Active BracletToeFashion [employer] Delica Lancets 33G TEST 4 TIMES DAILY [...] ER 10 MEQ Oral Tablet Extended ReleaseIndications:Ac [place] on chronic heart failure with preserved ejection [...] by mouth as needed. 0 Active Nystatin 900352 UNIT/GM External Powder (Nystop)Indications:C andidal intertrigo APPLY [...] eye 09/28/2020 Coronary artery disease invo lving [place] coronary artery of [place] heart without angina pectoris 12/16/2019 Last Assessment [...] 12/21/2016 Diabetes mellitus 01/05/2014 12/21/2016 LEYVA RESEARCH OTHER*[id number] 01/05/2014 12/21/2016 Axillary pain 11/03/2013 12/21/2016 Obesity, [...] scanned into Electronic Medical Record [facility] V710 Clinical Trial*[id number] 12/22/2010 04/14/2011 S/P aortic valve replacement 12/01/2010 08/26/2011 S/P AORTIC VALVE REPLACEMENT - #25 pericardial Hernandez valve 11/01/2010 06/28/2018 Overview: Aortic valve replacement with #25 pericardial Hernandez valve, model 2800TFX, serial number [id number] (Dr. Walker) [facility] V710 Clinical Trial*[id number] 10/18/2010 11/21/2010 Body mass index (BMI) of [...] 06/07/2018,01/08/20 18,12/05/2017,06/15,10/27/2013,09/12/2013 Pneumococcal Conjugate Vacci ne, 20-valent (Rzczesw63) 06/22/2023 Pneumococcal Polysaccharide PPV23 (Pneumovax) 01/02/2008 Seasonal [...] EST Home Visit [facility] [address] [address] Jaycee Sorto, RN [address] [address] 10/15/2023 11:00 AM EST Office Visit Cardiology, [facility] [address] [place] [address] Feli Teague PA-C [address] [address] 11/21/2023 9:20 AM EST Office Visit Family Practice [facility] [address] [place] [address] Gregory Rausch MD [address] [place] [address] 12/05/2023 10:39 AM EDT Hospital Encounter [facility], Operating Room [facility] [address] [place] [address] Ramsey Burnett, DO [address] [place] [address] [address] 12/05/2023 10:39 AM EDT - 12/05/2023 11:32 AM EDT Surgery OR [facility], Operating Room [facility] [address] [place] [address] Ramsey Burnett, DO [address] [address] LEFT EXTRACAPSULAR CATARACT REMOVAL COMPLEX WITH IOL 12/06/2023 8:45 AM EDT Office Visit Ophthalmology, [facility] [address] [address] Ramsey Burnett, DO [address] [address] 12/13/2023 2:15 PM EDT Office Visit Ophthalmology, [facility] [address] [address] Ramsey Burnett, DO [address] [address] 01/10/2024 2:00 PM EDT Office Visit Ophthalmology, [facility] [address] [address] Ramsey Burnett, DO [address] [facility] [place] [address] 02/04/2024 10:20 AM EDT Office Visit Family [facility] [address] [address] Gregory Rausch MD [address] [place] [address] Scheduled Orders Name Type Priority Associated Diagnoses [...] Additional history exists CKD PHOS USE SMARTSET 98407 06/18/2024 0901/2023, 06/16/2023, 06/15/2023, Additional history exists CKD HGB USE SMARTSET 00917 07/31/202407/31, 07/31/2023, 06/29/2023, Additional history exists Diabetic [...] this encounter Medical Devices Implanted Type Area Hospital Insurance Representative Device Identifier Shelf Expiration Date Model / Serial / Lot Cath Roselia Single Lumen - [id number] Implanted:Qty : 1 on 03/12/2008 at OR [facility] Left: Chest [employer] *DO NOT USE* 07/25/2012 21-4053-24 / / [id number] Valve Tarsha Aortic [id number] - [id number] Implanted:Qty : 1 on 11/01/2010 at OR [facility] N/A: Heart [employer] DANIEL 05/20/2012 2800TFX-25 / / [id number] Mesh Soft [id number] - [id number] Implanted:Qty : 1 on 10/10/2019 by Gigi Hendrickson MD at [place] [facility] N/A: Abdomen CR BARD : DAVOL [id number] 05/21/2024 [id number] / / [id number] Lens 22.5 Sn60wf - [id number] - [id number] Implanted:Qty : 1 on 09/15/2020 by Renaldo Cook, Cece Acosta MD at [facility] Right: Eye IVA : SURGICAL [id number] 05/13/2025 SN60 WF.225 / [id number] / [id number] documented as of this encounter Visit [...] the patient have Health Care Power of Senior Ios Software Engineer? No Full Code 10/10/2019 8:40 AM 10/10/2019 5:53 PM This order reflects the patients wishes and were consensually agreed upon. Full Code 11/06/2017 4:55 PM 11/07/2017 7:14 PM This order reflects the patients wishes and were consensually agreed upon. Healthcare Agents on File Name Relationship Healthcare Agent [facility] p Communication Gigi Rose Adult Child Health Care Repr esentative (appointed verbally by patient or by statute hierarchy) Care Teams Target Aircraft Technician Relationship Specialty Start Date End Date Gregory Rausch MD [address] [place] [address] PCP - General Family Medicine 02/12/20 documented as of this encounter
--- OUTSIDE RECORDS SUMMARY | 2023-10-27 12:11 | External Medical Summary | Summary of Care ---
Author Name Unknown Organization [facility] Address [address] [place] [address] Phone [phone] Care Team Providers Care Geophysical Party Chief Name Role Phone Deon Rausch MD Primary Care Provider [phone] Reason for Visit * Reason Onset Date Comments Medication Refill 09/25/2023 Encounter Details Date Type Department Care Team (Late st Contact Info) Description 09/25/2023 Refill Family Practice [facility] [address] [facility] [place] [address] Deon Rausch MD [address] [facility] [place] [address] Allergies Active Allergy Reactions Criticality Noted Date [...] hypoglycemia E11.9 100 Tab 3 1 Active G[employer] Verio w/Device Kit Use up to 4 times a day E11.9 1 Kit 0 2 Active GigsJamTouch Delica Lancets 33G TEST 4 TIMES DAILY [...] [facility]) Use as directed. Use 1 sensor every 10 days E 11.9 9 Each 3 3 Active Dexcom G6 TransmitterIndication s:Type 2 diabetes mellitus with hemoglobin A1c goal of less than 7.0% (HCC) Use as directed. Use 1 transmitter every 90 days E 11.9 1 Each 3 3 Active Ozempic (2 MG/DOSE) 8 MG/3ML Subcutaneous [...] once a week. 9 mL 3 3 Active Fluticasone Propionate 50 MCG/ACT [...] ER 10 MEQ Oral Tablet Extended ReleaseIndications:Ac venetie ira on chronic heart failure with preserved ejection [...] by mouth as needed. 0 Active Nystatin 768475 UNIT/GM External Powder (Nystop)Indications:C andidal intertrigo APPLY [...] with underlying disease ([facility]) Take 1 Capsule by mouth in the [...] before bedtime. 60 Tablet 5 4 Active Metoprolol Tartrate 25 MG Oral Tablet (Lopressor) Take 1 Tablet by mouth in the morning and 1 Tablet before bedtime. 60 Tablet 2 3 09/25/19 24 Discontinu ed(Refill) documented as of this [...] eye 09/28/2020 Coronary artery disease invo lving [place] coronary artery of [place] heart without angina pectoris 12/16/2019 Last Assessment [...] 12/21/2016 Diabetes mellitus 01/05/2014 12/21/2016 LEYVA RESEARCH OTHER*[id number] 01/05/2014 12/21/2016 Axillary pain 11/03/2013 12/21/2016 Obesity, [...] cath 09/201008/26/2011 12/21/2016 FOLLOWING SURGERY, UNSPECIFI ED ([facility] BSO 08/25/2011) 08/26/2011 12/21/2016 ADVANCE DIRECTIVE INFORMATION 04/17/2011 12/21/2016 Overview: Yes, Patient instructed to provide copy of advance directive for provider to review and to be scanned into Electronic Medical Record ADVANCE DIRECTIVE INFORMATION 03/01/2011 12/21/2016 Overview: Yes, Patient instructed to provide copy of advance directive for provider to review and to be scanned into Electronic Medical Record [facility] V710 Clinical Trial*[id number] 12/22/2010 04/14/2011 S/P aortic valve replacement 12/01/2010 08/26/2011 S/P AORTIC VALVE REPLACEMENT - #25 pericardial Hernandez valve 11/01/2010 06/28/2018 Overview: Aortic valve replacement with #25 pericardial Hernandez valve, model 2800TFX, serial number [id number] (Dr. Walker) [facility] V710 Clinical Trial*[id number] 10/18/2010 11/21/2010 Body mass index (BMI) of [...] 06/07/2018,01/08/20 18,12/05/2017,06/15,10/27/2013,09/12/2013 Pneumococcal Conjugate Vacci ne, 20-valent ([id number]) 06/22/2023 Pneumococcal Polysaccharide PPV23 (Pneumovax) 01/02/2008 Seasonal [...] Telephone Encounter - Deon Rausch MD - 09/26/2023 10:57 AM ESTSigned Prescriptions: Disp Refills Metoprolol Tartrate 25 MG Oral Tablet (Lop*60 Tab*5 Sig: Take 1 Tablet by mouth in the morning and 1 Tablet before bedtime. Authorizing Provider: DEON RAUSCH * Telephone Encounter - Thao Ch, MED ASSIST - 09/26/2023 10:37 AM EST Pending Prescriptions: Disp Refills Metoprolol Tartrate 25 MG Oral Tablet (Lop*60 Tab*5 Sig: Take 1 Tablet by mouth in the morning and 1 Tablet before bedtime. * Telephone Encounter - Dominique Lopes OSA - 09/25/2023 3:29 PM EST Did you pend patient's preferred pharmacy and medication before forwarding?yes Pharmacy: [facility] [id number] [place] [address] Pending Prescriptions: Disp Refills Metoprolol Tartrate 25 MG Oral Tablet (Lo*60 Tab*2 Sig: Take 1 Tablet by mouth in the morning and 1 Tablet before bedtime. Last Visit: 07/31/2023 (in office), 09/12/2023 (telemedicine) Next Visit: 11/21/2023 If no future appointments scheduled, and last appointment is greater than a year ago, please schedule patient for a follow-up appointment Last date the medication was ordered: 09.01.23 Is this request for a controlled substance?No 90 day refill request Urine Drug Screen:No results found. However, due [...] Team (Late st Contact Info) Description 09/26/2023 12:00 PM EST Nurse Only Ophthalmology, [facility] [address] [place] [address] Stephen, Nurse [facility] [address] [place] [address] 10/12/2023 10:00 AM EST Home Visit [facility], [facility] [address] [place] [address] Jaycee Sorto RN [address] [place] [address] 10/15/2023 11:00 AM EST Office Visit Cardiology, [facility] [address] [place] [address] Feli Teague PA-C [address] [place] [address] 11/21/2023 9:20 AM EST Office Visit Family Practice [facility] [address] [place] [address] Deon Rausch MD [address] [place] [address] 12/05/2023 10:39 AM EDT Hospital Encounter [facility], Operating Room [facility] [address] [place] [phone] Ramsey Burnett, [address] [place] [address] 12/05/2023 10:39 AM EDT - 12/05/2023 11:32 AM EDT Surgery [facility], Operating Room [facility] [address] [place] [phone] Ramsey Burnett, DO [address] [place] [address] LEFT EXTRACAPSULAR CATARACT REMOVAL COMPLEX WITH IOL 12/06/2023 8:45 AM EDT Office Visit Ophthalmology, [facility] [address] [facility] [place] [address] Ramsey Burnett, DO [address] [place] [address] 12/13/2023 2:15 PM EDT Office Visit [facility], [facility] [address] [facility] [place] [address] Ramsey Burnett, DO [address] [place] [address] 01/10/2024 2:00 PM EDT Office Visit Ophthalmology, [facility] [address] [facility] [place] [address] Ramsey Burnett, DO [address] [place] [address] 02/04/2024 10:20 AM EDT Office Visit Family Practice [facility] [address] [facility] [place] [address] Deon Rausch MD [address] [facility] [place] [address] Scheduled Procedures Name Priority Associated Diagnoses Date/Ti [...] Additional history exists CKD PHOS USE SMARTSET 37149 06/18/202405/26, 06/16/2023, 06/15/2023, Additional history exists CKD HGB USE SMARTSET 17838 07/31/202407/31, 07/31/2023, 06/29/2023, Additional history exists Diabetic [...] this encounter Medical Devices Implanted Type Area Dipper Fish Device Identifier Shelf Expiration Date Model / Serial / Lot Cath Roselia Single Lumen - [id number] Implanted:Qty : 1 on 03/12/2008 at OR [facility] Left: Chest [employer] *DO NOT USE* 07/25/2012 21-4053-24 / / [id number] Valve Tarsha Aortic [id number] - [id number] Implanted:Qty : 1 on 11/01/2010 at OR [facility] N/A: Heart [employer] DANIEL 05/20/2012 2800TFX-25 / / [id number] Mesh Soft [id number] - [id number] Implanted:Qty : 1 on 10/10/2019 by Gigi Hendrickson MD at [place] [facility] N/A: Abdomen CR BARD : DAVOL [id number] 05/21/2024 [id number] / / [id number] Lens 22.5 Sn60wf - [id number] - [id number] Implanted:Qty : 1 on 09/15/2020 by Renaldo Cook, Cece Acosta MD at OR [facility] Right: Eye IVA : SURGICAL [id number] 05/13/2025 SN60 WF.225 / [id number] / [id number] documented as of this encounter Advance [...] the patient have Health Care Power of Vulcanizer Rubber Plate? No Full Code 10/10/2019 8:40 AM 10/10/2019 [...] patient or by statute hierarchy) Care Teams Geophysical Party Chief Relationship Specialty Start Date End Date Deon Rausch MD [address] [place] [address] PCP - General Family Medicine 02/12/20 documented as of this encounter
--- OUTSIDE RECORDS SUMMARY | 2023-10-27 12:11 | External Medical Summary | Summary of Care ---
Author Name Unknown Organization [facility] Address [address] [place] [address] Phone [phone] Care Team Providers Care Assembler Final Name Role Phone Gregory Rausch MD Primary Care Provider [phone] Reason for Visit * Reason Comments EMG Encounter Details Date Type Department Care Team (Late st Contact Info) Description 09/26/2023 11:00 AM EST NeuroDiagnostic Study Neurophysiology [facility] [address] [place] [address] Thomas Medina, DO [address] [facility] [address] Allergies Active Allergy Reactions Criticality Noted Date [...] hypoglycemia E11.9 100 Tab 3 07/06/2021 Active WambaTouch Verio w/Device Kit Use up to 4 times a day E11.9 1 Kit 0 02/10/2022 Active WambaTouch Delica Lancets 33G TEST 4 TIMES DAILY [...] hemoglobin A1c goal of less than 7.0% ([facility]) Use as directed. Use 1 sensor [...] edema, with long-term current use of insulin ([facility]),Type 2 diabetes mellitus with stage 3a chronic kidney disease, with long-term current use of insulin ([facility]) Inject 0.75 mL under the skin once a week. 9 mL 3 02/22/2023 Active Fluticasone Propionate 50 MCG/ACT Nasal Suspension (Flonase)Indications: Dizziness Administer 2 Sprays into each nostril in the morning. 16 g 3 03/01/2023 Active metOLazone 2.5 MG Oral Tablet (Zaroxolyn)Indication s:Acute on chronic heart failure with preserved ejection fraction (HFpEF) ([facility]) One tablet one morning twice per [...] ER 10 MEQ Oral Tablet Extended ReleaseIndications:Ac [place] on chronic heart failure with preserved ejection fraction (HFpEF) ([facility]) Take 1 Tablet by mouth in [...] hemoglobin A1c goal of less than 7.0% ([facility]),Type 2 diabetes mellitus with stage 3a chronic kidney disease, with long-term current use of insulin ([facility]) Inject 30 Units under the skin at bedtime. 6 mL 2 07/31/2023 Active BD Pen Needle Short U/F 31G X 8 MMIndications:Type 2 diabetes mellitus with hemoglobin A1c goal of less than 7.0% ([facility]),Type 2 diabetes mellitus with stage 3a chronic kidney disease, with long-term current use of insulin ([facility]) Use with insulin 4 times daily 400 Each 3 07/31/2023 Active Gaviscon 80-14.2 MG Oral Tablet Chewable (Alum Hydroxide-Mag Trisilicate) Take by mouth as needed. 0 Active Nystatin 840631 UNIT/GM External Powder (Nystop)Indications:C andidal intertrigo APPLY TOPICALLY TO AFFECTED AREA 3 TIMES A DAY. APPLY TO AFFECTED AREAS 60 g 1 08/20/2023 Active Atorvastatin Calcium 40 MG Oral Tablet (Lipitor)Indications: Heart failure, systolic, due to idiopathic cardiomyopathy ([facility]),S/P aortic valve replacement,HTN, goal below 140/80,Dyslipidemia, [...] hemoglobin A1c goal of less than 7.0% ([facility]) Use up to 50 units per day in Omnipod. 5 Each 3 09/11/2023 Active Gabapentin 100 MG Oral Capsule (Neurontin)Indication s:Polyneuropathy associated with underlying disease ([facility]) Take 1 Capsule by mouth in [...] eye 09/28/2020 Coronary artery disease invo lving [place] coronary artery of [place] heart without angina pectoris 12/16/2019 Last Assessment [...] 12/21/2016 Diabetes mellitus 01/05/2014 12/21/2016 LEYVA RESEARCH OTHER*[id number] 01/05/2014 12/21/2016 Axillary pain 11/03/2013 12/21/2016 Obesity, [...] cath 09/201008/26/2011 12/21/2016 FOLLOWING SURGERY, UNSPECIFI ED ([facility] BSO 08/25/2011) 08/26/2011 12/21/2016 ADVANCE DIRECTIVE INFORMATION 04/17/2011 12/21/2016 Overview: Yes, Patient instructed to provide copy of advance directive for provider to review and to be scanned into Electronic Medical Record ADVANCE DIRECTIVE INFORMATION 03/01/2011 12/21/2016 Overview: Yes, Patient instructed to provide copy of advance directive for provider to review and to be scanned into Electronic Medical Record [facility] V710 Clinical Trial*[id number] 12/22/2010 04/14/2011 S/P aortic valve replacement 12/01/2010 08/26/2011 S/P AORTIC VALVE REPLACEMENT - #25 pericardial Mc valve 11/01/2010 06/28/2018 Overview: Aortic valve replacement with #25 pericardial Mc valve, model 2800TFX, serial number [id number] (Dr. Walker) [facility] V710 Clinical Trial*[id number] 10/18/2010 11/21/2010 Body mass index (BMI) of [...] 06/07/2018,01/08/20 18,12/05/2017,06/15,10/27/2013,09/12/2013 Pneumococcal Conjugate Vacci ne, 20-valent ([id number]) 06/22/2023 Pneumococcal Polysaccharide PPV23 (Pneumovax) 01/02/2008 Seasonal [...] as of this encounter Progress Notes * Thomas Medina DO - 09/26/2023 12:30 PM EST [facility] [place] Neurophysiology Laboratory Electromyography Report Name: Jovita Rose Date of : 1960 (62 year old) Sex: female Tech: Willis Rollins Referring Physician: Angeline Puentes DO Examining Physician: Thomas Medina DO Examination Date: 09/26/2023 Ht Readings from Last 1 Encounters: 07/31/23 1.499 m (4' 11") Wt Readings from Last 1 Encounters: 09/06/23 70.3 kg (155 lb) Impression: Abnormal study. This electrodiagnostic study shows evidence of a moderate to severe, axonal, length-dependent sensorimotor polyneuropathy. This would be consistent with or supportive of a diabetic polyneuropathy. History and Physical examination: A 62-year-old female with insulin-dependent diabetes and numbnessand burning pain in her feet. Examination demonstrates intrinsic foot muscle atrophy. EMG/NCS performed for evaluation of polyneuropathy. Nerve Conduction Studies Examination Findings: Nerve conduction were performed in the left upper and left extremity and in select nerves in the right lower extremity. The bilateral sural sensory nerve responses were absent. The radial sensory nerve study showed a normal peak latency, amplitude, and normal conduction velocity. The peroneal and tibial motor nerve study showed normal distal latencies, reduced amplitudes, and slow conduction. Theulnar motor nerve study showed a normal distal latency, reduced amplitude, and slow conduction velocity. Please see the attached document for raw data or the scanned document in EPIC. Reference values are from the [facility] normative data guidelines that are attached at the end ofthis document. Electromyography Examination Findings: Needle examination was performed with a disposable concentric needle electrode in selected muscles of the left lower extremity, as recorded in the tables. No abnormal spontaenous activity was seen. The extensor hallucis longus muscle demonstrated mildly to moderately increased size and mild to moderately reduced recruitment. The motor unit action potentials in the other muscles tested demonstrated normal size, duration, and recruitment. Please see the attached document for raw data or the scanned document in EPIC. The study was done with a concentric needle examination. Thomas Medina DO documented in this encounter Plan of Treatment Upcoming Encounters Date Type Department Care Team (Late st Contact Info) Description 10/12/2023 10:00 AM EST Home Visit [facility] [address] [place] [address] Jaycee Sorto RN [address] [place] [address] 10/15/2023 11:00 AM EST Office Visit Cardiology, [facility] [address] [place] [address] Feli Teague PA-C [address] [place] [address] 11/21/2023 9:20 AM EST Office Visit Family Practice [facility] [address] [place] [address] Gregory Ruasch MD [address] [place] [address] 12/05/2023 10:39 AM EDT Hospital Encounter [facility], Operating Room [facility] [address] [place] [phone] Ramsey Burnett DO [facility] [place] [address] 12/05/2023 10:39 AM EDT - 12/05/2023 11:32 AM EDT Surgery [facility], Operating Room [facility] [address] [place] [phone] Ramsey Burnett, DO [address] [facility] [place] [address] LEFT EXTRACAPSULAR CATARACT REMOVAL COMPLEX WITH IOL 12/06/2023 8:45 AM EDT Office Visit Ophthalmology, [facility] [address] [facility] [place] [address] Ramsey Burnett, DO [address] [place] [address] 12/13/2023 2:15 PM EDT Office Visit Ophthalmology, [facility] [address] [place] [address] Ramsey Burnett, DO [address] [place] [address] 01/10/2024 2:00 PM EDT Office Visit Ophthalmology, [facility] [address] [facility] [place] [address] Ramsey Burnett, DO [address] [place] [address] 02/04/2024 10:20 AM EDT Office Visit Family Practice [facility] [address] [place] [address] Gregory Rausch MD [address] [place] [address] Scheduled Procedures Name Priority Associated Diagnoses Date/Ti [...] Additional history exists CKD PHOS USE SMARTSET 95478 06/18/202405/26, 06/16/2023, 06/15/2023, Additional history exists CKD HGB USE SMARTSET 12028 07/31/202407/31, 07/31/2023, 06/29/2023, Additional history exists Diabetic [...] this encounter Medical Devices Implanted Type Area Director Of Program Management Device Identifier Shelf Expiration Date Model / Serial / Lot Cath Roselia Single Lumen - [id number] Implanted:Qty : 1 on 03/12/2008 at OR [facility] Left: Chest [facility] *DO NOT USE* 07/25/2012 21-4053-24 / / [id number] Valve Tarsha Aortic [id number] - [id number] Implanted:Qty : 1 on 11/01/2010 at OR [facility] N/A: Heart [employer] DANIEL 05/20/2012 2800TFX-25 / / [id number] Mesh Soft [id number] - [id number] Implanted:Qty : 1 on 10/10/2019 by Gigi Hendrickson MD at OR [facility] [place] [place] N/A: Abdomen CR BARD : DAVOL [id number] 05/21/2024 [id number] / / [id number] Lens 22.5 Sn60wf - [id number] - [id number] Implanted:Qty : 1 on 09/15/2020 by Cece Roland MD at [facility] Right: Eye IVA : SURGICAL [id number] 05/13/2025 SN60 WF.225 / [id number] / [id number] documented as of this encounter Visit Diagnoses Diagnosis Numbness in feet [R20.0]- Primary Disturbance of skin sensation Cataract Unspecified cataract documented in this encounter [...] the patient have Health Care Power of Corrective And Manual Arts Therapist? No Full Code 10/10/2019 8:40 AM 10/10/2019 5:53 PM This order reflects the patients wishes and were consensually agreed upon. Full Code 11/06/2017 4:55 PM 11/07/2017 7:14 PM This order reflects the patients wishes and were consensually agreed upon. Healthcare Agents on File Name Relationship Healthcare Agent Relationshi p Communication Gigi Gutierrez [facility] Care Repr esentative (appointed verbally by patient or by statute hierarchy) Care Teams Assembler Final Relationship Specialty Start Date End Date Gregory Rausch MD [address] [place] [address] PCP - General Family Medicine 02/12/20 documented as of this encounter
--- OUTSIDE RECORDS SUMMARY | 2023-10-27 12:12 | External Medical Summary | Summary of Care ---
Author Name Unknown Organization [facility] Address [address] [place] [address] Phone [phone] Care Team Providers Care Coarse Wire Drawer Name Role Phone Gregory Rausch MD Primary Care Provider [phone] Encounter Details Date Type Department Care Team (Late st Contact Info) Description 09/13/2023 Telephone Ophthalmology, [facility] [address] [facility] [place] [address] Ramsey Burnett, [place] [address] Allergies Active Allergy Reactions Criticality Noted Date Comments Adhesive Tape 07/02/2017 Can tolerate band-aids Glycerin Other (Please comment) 03/12/2008 Topical agents with glycein-burning & itching Lactose 12/09/2014 Dairy - gas Lisinopril Cough 01/21/2010 Monosodium Glutamate Edema Other 03/12/2008 Hands and feet Penicillins Rash 11/14/2007 documented as of this encounter (statuses as of 09/14/2023) Medications Medication Sig Dispensed Refills Start Date [...] hypoglycemia E11.9 100 Tab 3 07/06/2021 Active TapitureTouch Verio w/Device Kit Use up to 4 times a day E11.9 1 Kit 0 02/10/2022 Active TapitureTouch Delica Lancets 33G TEST 4 TIMES DAILY [...] hemoglobin A1c goal of less than 7.0% ([facility]) Use as directed. Use 1 sensor every [...] edema, with long-term current use of insulin ([facility]),Type 2 diabetes mellitus with stage 3a chronic kidney disease, with long-term current use of insulin ([facility]) Inject 0.75 mL under the skin once a week. 9 mL 3 02/22/2023 Active Fluticasone Propionate 50 MCG/ACT Nasal Suspension (Flonase)Indications: Dizziness Administer 2 Sprays into each nostril in the morning. 16 g 3 03/01/2023 Active metOLazone 2.5 MG Oral Tablet (Zaroxolyn)Indication s:Acute on chronic heart failure with preserved ejection fraction (HFpEF) ([facility]) One tablet one morning twice per week [...] heart failure with preserved ejection fraction (HFpEF) ([facility]) Take 1 Tablet by mouth in the [...] hemoglobin A1c goal of less than 7.0% ([facility]),Type 2 diabetes mellitus with stage 3a chronic kidney disease, with long-term current use of insulin ([facility]) Inject 30 Units under the skin at bedtime. 6 mL 2 07/31/2023 Active BD Pen Needle Short U/F 31G X 8 MMIndications:Type 2 diabetes mellitus with hemoglobin A1c goal of less than 7.0% ([facility]),Type 2 diabetes mellitus with stage 3a chronic kidney disease, with long-term current use of insulin ([facility]) Use with insulin 4 times daily 400 Each 3 07/31/2023 Active Gaviscon 80-14.2 MG Oral Tablet Chewable (Alum Hydroxide-Mag Trisilicate) Take by mouth as needed. 0 Active Nystatin 339966 UNIT/GM External Powder (Nystop)Indications:C andidal intertrigo APPLY TOPICALLY TO AFFECTED AREA 3 TIMES A DAY. APPLY TO AFFECTED AREAS 60 g 1 08/20/2023 Active Atorvastatin Calcium 40 MG Oral Tablet (Lipitor)Indications: Heart failure, systolic, due to idiopathic cardiomyopathy ([facility]),S/P aortic valve replacement,HTN, goal below 140/80,Dyslipidemia, goal [...] hemoglobin A1c goal of less than 7.0% ([facility]) Use up to 50 units per day in Omnipod. 5 Each 3 09/11/2023 Active Gabapentin 100 MG Oral Capsule (Neurontin)Indication s:Polyneuropathy associated with underlying disease ([facility]) Take 1 Capsule by mouth in the morning and 1 Capsule at noon and 1 Capsule before bedtime. 90 Capsule 0 09/12/2023 Active documented as of this encounter (statuses as of 09/14/2023) Active Problems Problem Noted Date Diagnosed Date [...] eye 09/28/2020 Coronary artery disease invo lving pen[place]scot coronary artery of penobscot heart without angina pectoris 12/16/2019 Last Assessment [...] as of this encounter (statuses as of 09/14/2023) Resolved Problems Problem Noted Date Diagnosed Date [...] 12/21/2016 Diabetes mellitus 01/05/2014 12/21/2016 LEYVA RESEARCH OTHER*[id number] 01/05/2014 12/21/2016 Axillary pain 11/03/2013 12/21/2016 Obesity, [...] cath 09/201008/26/2011 12/21/2016 FOLLOWING SURGERY, UNSPECIFI ED ([facility] 08/25/2011) 08/26/2011 12/21/2016 ADVANCE DIRECTIVE [...] Medical Record [facility] V710 Clinical Trial*[id number] 12/22/2010 04/14/2011 S/P aortic valve replacement 12/01/2010 08/26/2011 S/P AORTIC VALVE REPLACEMENT - #25 pericardial Mc valve 11/01/2010 06/28/2018 Overview: Aortic valve replacement with #25 pericardial Mc valve, model [id number], serial number [id number] (Dr. Walker) [facility] V710 Clinical Trial*[id number] 10/18/2010 11/21/2010 Body mass index (BMI) of [...] as of this encounter (statuses as of 09/14/2023) Immunizations Name Administration Dates Next Due COVID-19 mRNA, LNP-s, No Pre serve, 2-Dose Series (Moderna) 10/25/2021,02/16/2021,01/18/2021 HEP A - Hepatitis A (Adult > 18 yrs) 06/07/2018, 12/05/2017 Hepatitis B, 20+ yrs 06/07/2018,01/08/20 18,12/05/2017,06/15,10/27/2013,09/12/2013 Pneumococcal Conjugate Vacci ne, 20-valent ([id number]) 06/22/2023 Pneumococcal Polysaccharide PPV23 (Pneumovax) 01/02/2008 Seasonal [...] encounter Miscellaneous Notes * Telephone Encounter - Cristina Johnston OSA - 09/14/2023 9:46 AM EST Scheduled @ [facility] on 12/05/23. Patient aware and agreeable to related appointments. DANYELLE Liu 09/14/2023 9:46 AM * Telephone Encounter - Ramsey Burentt DO - 09/13/2023 4:37 PM EST Needs IOL/yajaira: Yes, repeat, prior to surgery, I do not need to see patient same day as surgery Needs surgery scheduled: Complex Left eye only 3. Anesthesia: Monitored Local Anesthesia with Sedation 4. [facility] location: [facility] 5. Time needed for IOL/yajaira discussion: done 6. Please schedule H&P w/ PCP Difficulty = 1 documented in this encounter Plan of Treatment Upcoming Encounters Date Type Department Care Team (Latest Contact Info) Description 09/14/2023 2:00 PM EST Office Visit Pharmacy, [facility] [address] [place] [address] [address] Pharmacist1, [facility] [address] [place] [address] Type 2 diabetes mellitus with stage 3a chronic kidney disease, with long-term current use of insulin ([facility])*; Type 2 diabetes mellitus with hemoglobin A1c goal of less than 7.0% ([facility]) 09/19/2023 1:40 PM EST Pharmacy Pharmacy, [facility] [address] [place] [address] [address] Pharmacist1, [facility] [address] [place] [address] 09/26/2023 11:00 AM EST NeuroDiagnostic Study Neurophysiology [facility] [place] [place] [address] [place] [address] Thomas Medina, DO [address] [place] [address] 09/26/2023 12:00 PM EST Nurse Only Ophthalmology, [facility] [address] [facility] [place] [address] [place], Nurse [facility] [address] [place] [address] 10/12/2023 10:00 AM EST Home Visit [facility] at [facility] [address] [place] [address] Jaycee Sorto RN [address] [facility] [place] [address] 10/15/2023 11:00 AM EST Office Visit Cardiology, [facility] [address] [facility] [place] [address] Feli Teague PA-C [address] [facility] [place] [address] 11/21/2023 9:20 AM EST Office Visit Family Practice [facility] [address] [place] [address] Gregory Rausch MD [address] [place] [address] 12/05/2023 Hospital Encounter OR [facility], Operating Room [facility] [address] [place] [id number] Ramsey Burnett, DO [address] [facility] [place] [address] 12/06/2023 8:45 AM EDT Office Visit Ophthalmology, [facility] [address] [facility] [place] [address] Ramsey Burnett, DO [address] [place] [address] 12/13/2023 2:15 PM EDT Office Visit Ophthalmology, [facility] [address] [facility] [place] [address] Ramsey Burnett, DO [address] [place] [address] 01/10/2024 2:00 PM EDT Office Visit Ophthalmology, [facility] [address] [facility] [place] [address] Ramsey Burnett, DO [address] [place] [address] 02/04/2024 10:20 AM EDT Office Visit Family Practice [facility] [address] [facility] [place] [address] Gregory Rausch MD [address] [facility] [place] [address] Scheduled Procedures Name Priority Associated Diagnoses Date/Ti me EXTRACAPSULAR CATARACT REMOV AL COMPLEX WITH IOL Cataract COLONOSCOPY FLEXIBLE PROXIMAL DIAGNOSTIC Recall History of colon polyps ESOPHAGOGASTRODUODENOSCOPY ( EGD), FLEXIBLE, TRANSORAL, DIAGNOSTIC Recall Cirrhosis (HCC) COLONOSCOPY FLEXIBLE PROXIMAL DIAGNOSTIC Recall Personal history of colonic polyps Health Maintenance Due Date Last Done Comments HIV Screening 1975 Depression, Most Recent Score >= 10 (will fire each visit until score < 10) 12/18/2020 2020 Diabetic Foot Exam 2021 2020, 0 12/05/2018, 12/05/2017, Additional history exists COVID-19 Vaccine ( season) 2023 10/25/2021, 02/16/2021, 01/18/2021 B-12 09/08/2023 09/08/2022, 11/23, 08/30/2018, Additional history exists HbA1c 01/29/2024 07/31/2023, 03/24, 02/13/2023, Additional history exists GFR 01/31/2024 08/02/2023, 1103/2023, 06/28/2023, Additional history exists Albumin/Creatinine Ratio 03/09/2024 023, 12/22/2022, 05/05/2021, Additional history exists TSH 06/06/2024 06/06/2023, 01/23, 12/22/2022, Additional history exists CKD PHOS USE SMARTSET 35983 06/18/202405/26, 06/16/2023, 06/15/2023, Additional history exists CKD HGB USE SMARTSET 42102 07/31/202407/31, 07/31/2023, 06/29/2023, Additional history exists Diabetic Eye Exam 09/13/2024 09/13/2023, , 09/13/2023, Additional history exists COLONOSCOPY-EVERY 3 YRS AGES [...] this encounter Medical Devices Implanted Type Area Dental Ceramist Helper Device Identifier Shelf Expiration Date Model / Serial / Lot Cath Roselia Single Lumen - [id number] Implanted:Qty : 1 on 03/12/2008 at OR [facility] Left: Chest [employer] *DO NOT USE* 07/25/2012 [id number] / / [id number] Valve Tarsha Aortic [id number] - [id number] Implanted:Qty : 1 on 11/01/2010 at OR [facility] N/A: Heart [employer] 05/20/2012 [id number]-25 / / [id number] Mesh Soft 11m65nt - [id number] Implanted:Qty : 1 on 10/10/2019 by Gigi Hendrickson [place] [facility] N/A: Abdomen CR BARD : DAVOL [id number] 05/21/2024 [id number] / / [id number] Lens 22.5 Sn60wf - [id number] - [id number] Implanted:Qty : 1 on 09/15/2020 by Renaldo Cook, Cece Acosta MD at OR [facility] Right: Eye IVA : SURGICAL [id number] 05/13/2025 SN60 WF.225 / [id number] / [id number] documented as of this encounter Advance [...] the patient have Health Care Power of Freight Delivery Driver? No Full Code 10/10/2019 8:40 AM 10/10/2019 5:53 PM This order reflects the patients wishes and were consensually agreed upon. Full Code 11/06/2017 4:55 PM 11/07/2017 7:14 PM This order reflects the patients wishes and were consensually agreed upon. Healthcare Agents on File Name Relationship Healthcare Agent [facility] p Communication Gigi Gutierrez [facility] Adult Child Health Care Repr esentative (appointed verbally by patient or by statute hierarchy) Care Teams Coarse Wire Drawer Relationship Specialty Start Date End Date Gregory Rausch MD [address] [place] [address] PCP - General Family Medicine 02/12/20 documented as of this encounter
--- OUTSIDE RECORDS SUMMARY | 2023-10-27 12:12 | External Medical Summary ---
Author Name Unknown Address Unknown Organization [id number]:[facility] [address] [facility] [address] Laboratory Report Ordering Provider Test Date Status YENI SNEED 09/18/2023 09:32:38 Final Observation Date Value Abnormality Reference (Units ) Status HbA1C 09/18/2023 09:32:38 7.5 Above high normal 4. 0-5.6 (%) Final The use of HbA1c to monitor glycemic status is based on normal hemoglobin and HbA composition. This test should not be used in patients with abnormal hemoglobin that affects the half life of the red blood cell or the in vivo glycation rates. Glucose, estimated average 09/18/2023 09:32:38 169 Above high normal <126 (mg/dL) Renard bingham Performing Location [facility] [address] [facility] [address]
--- OUTSIDE RECORDS SUMMARY | 2023-10-27 12:12 | External Medical Summary | Summary of Care ---
Author Name Unknown Organization [facility] Address [address] [place] [address] Phone [phone] Care Team Providers Care Optical Instrument Repairer Name Role Phone Gregory Rausch MD Primary Care Provider [phone] Reason for Visit * Reason Comments Diabetes Follow-Up Dosage Adjustment Via Phone (anticoag Cl inic) Encounter Details Date Type Department Care Team (Late st Contact Info) Description 09/20/2023 10:50 AM EST Telemedicine Pharmacy, [facility] [address] [facility] [place] [address] Pharmacist1, [facility] [address] [place] [address] Type 2 diabetes mellitus with hemoglobin A1c goal of less than 7.0% ([facility])*; Type 2 diabetes mellitus with stage 3a chronic kidney disease, with long-term current use of insulin ([facility]) Allergies Active Allergy Reactions Criticality Noted Date [...] hypoglycemia E11.9 100 Tab 3 07/06/2021 Active [employer]opsys [employer] Verio w/Device Kit Use up to 4 times a day E11.9 1 Kit 0 02/10/2022 Active [employer]ops[employer] Delica Lancets 33G TEST 4 TIMES DAILY [...] A1c goal of less than 7.0% ([facility]),Type 2 diabetes mellitus with diabetic mononeuropathy, with long-term current use of insulin ([facility]),Type 2 diabetes mellitus with both eyes affected by mild nonproliferative retinopathy and macular edema, with long-term current use of insulin ([facility]),Type 2 diabetes mellitus with stage 3a chronic kidney disease, with long-term current use of insulin ([facility]) Inject 0.75 mL under the skin once a week. 9 mL 3 02/22/2023 Active Fluticasone Propionate 50 MCG/ACT Nasal Suspension (Flonase)Indications: Dizziness Administer 2 Sprays into each nostril in the morning. 16 g 3 03/01/2023 Active metOLazone 2.5 MG Oral Tablet (Zaroxolyn)Indication s:Acute on chronic heart failure with preserved ejection fraction (HFpEF) ([facility]) One tablet one morning twice per week [...] failure with preserved ejection fraction (HFpEF) ([facility]) Take 1 Tablet by mouth in the [...] A1c goal of less than 7.0% ([facility]),Type 2 diabetes mellitus with stage 3a chronic kidney disease, with long-term current use of insulin ([facility]) Inject 30 Units under the skin at bedtime. 6 mL 2 07/31/2023 Active BD Pen Needle Short U/F 31G X 8 MMIndications:Type 2 diabetes mellitus with hemoglobin A1c goal of less than 7.0% ([facility]),Type 2 diabetes mellitus with stage 3a chronic kidney disease, with long-term current use of insulin ([facility]) Use with insulin 4 times daily 400 Each 3 07/31/2023 Active Gaviscon 80-14.2 MG Oral Tablet Chewable (Alum Hydroxide-Mag Trisilicate) Take by mouth as needed. 0 Active Nystatin 964852 UNIT/GM External Powder (Nystop)Indications:C andidal intertrigo APPLY TOPICALLY TO AFFECTED AREA 3 TIMES A DAY. APPLY TO AFFECTED AREAS 60 g 1 08/20/2023 Active Atorvastatin Calcium 40 MG Oral Tablet (Lipitor)Indications: Heart failure, systolic, due to idiopathic cardiomyopathy ([facility]),S/P aortic valve replacement,HTN, goal below 140/80,Dyslipidemia, goal [...] A1c goal of less than 7.0% ([facility]) Use up to 50 units per day [...] eye 09/28/2020 Coronary artery disease invo lving napaimute coronary artery of napaimute heart without angina pectoris 12/16/2019 Last Assessment [...] Diagnosed Date Resolved Date Widened pulse pressure 06/19/202307/313 COVID-19 virus infection 06/19/202303/2023 Hyperglycemia due to [...] 05/12/2019 07/04/2019 Controlled type 2 diabetes m jessicaitus with cataract 01/23/2019 12/09/2019 Body mass index [...] 12/21/2016 Diabetes mellitus 01/05/2014 12/21/2016 LEYVA RESEARCH OTHER*[id number] 01/05/2014 12/21/2016 Axillary pain 11/03/2013 12/21/2016 Obesity, [...] cath 09/201008/26/2011 12/21/2016 FOLLOWING SURGERY, UNSPECIFI ED ([facility] 08/25/2011) 08/26/2011 12/21/2016 ADVANCE DIRECTIVE INFORMATION 04/17/2011 12/21/2016 Overview: Yes, Patient instructed to provide copy of advance directive for provider to review and to be scanned into Electronic Medical Record ADVANCE DIRECTIVE INFORMATION 03/01/2011 12/21/2016 Overview: Yes, Patient instructed to provide copy of advance directive for provider to review and to be scanned into Electronic Medical Record [facility] V710 Clinical Trial*[id number] 12/22/2010 04/14/2011 S/P aortic valve replacement 12/01/2010 08/26/2011 S/P AORTIC VALVE REPLACEMENT - #25 pericardial Mc valve 11/01/2010 06/28/2018 Overview: Aortic valve replacement with #25 pericardial Mc valve, model 2800TFX, serial number [id number] (Dr. Walker) [facility] V710 Clinical Trial*[id number] 10/18/2010 11/21/2010 Body mass index (BMI) of [...] 06/07/2018,01/08/20 18,12/05/2017,06/15,10/27/2013,09/12/2013 Pneumococcal Conjugate Vacci ne, 20-valent ([id number]) 06/22/2023 Pneumococcal Polysaccharide PPV23 (Pneumovax) 01/02/2008 Seasonal [...] as of this encounter Progress Notes * Heather Neeraj So, [facility] - 09/20/2023 11:10 AM EST Patient Phone Numbers Omnipod new start 24 hour follow up. After connecting to the patient via telephone, the patient was identified by name and date of . Patient was then informed that this was a telephone call only visit. The patient agreed to participate. Visit Disposition: Routine follow-up Total call duration was 4 minutes. Medication Therapy Disease Management Clinic - Diabetes Management Progress Note Jovita Rose, identified by name and date of , is a 62 year old female being seen for diabetes management/education. Patient presents for return diabetic visit. DIABETES: Current diabetic medications: Ozempic 1mg every Sunday (1mg = 36 clicks) Metformin 1000mg twice daily Omnipod Insulin Pump (Serial Number: need to get after starting) Insulin: Novolog Basal Rate: 0.55 units/hour Bolus: 0 units with breakfast, 0 units with lunch and 0 units with supper Bolus Calculator: on and using ICR: 18 ISF: 50 Blood Glucose Goal Limits: 70-180 Bolus Calculator: Target B Correct above: 180 Minimum B Active Insulin Time: 2 Medication Injection Site: Arm and Abdomen History of Treatment Barriers: Lifestyle: None Therapy considerations: Cost Medication: None Glucose Review/SMBG: Patient stated no low BG. BG has been >250 at times. Hypoglycemia: Does your blood sugar go below 70 mg/dL? No Hyperglycemia symptoms present: none Recent Labs Units 09/18/23 0932 07/31/23 1134 04/09/23 1344 HEMOGLOBIN A1C - [facility] % 7.5* 6.3* 7.9* Recent Labs Units 08/02/23 0000 07/31/23 1134 06/20/23 0421 ESTIMATED GLOMERULAR FILTRATION RATE - [facility] mL/min -- 86 >90 EGFR-OUTSIDE LAB ML/MIN 77.9 -- -- CREATININE - [facility] mg/dL -- 0.8 0.6 CREATININE-OUTSIDE LAB MG/DL 0.80 -- -- HYPERTENSION: Patient on ACEi/ARB: no, CORINA induced cough BP Readings from Last 3 Encounters: 09/06/23 120/64 07/31/23 130/62 07/28/23 140/72 Blood pressure at goal: yes HYPERLIPIDEMIA: Patient is taking moderate or high intensity statin: yes HEALTH MAINTENANCE REVIEW: Health Maintenance Due Topic Date Due HIV Screening Never done Depression, Most Recent Score >= 10 (will fire each visit until score < 10) 12/18/2020 Diabetic Foot Exam 2021 COVID-19 Vaccine ( season) 2023 ASSESSMENT & PLAN: ICD-10-CM 1. Type 2 diabetes mellitus with hemoglobin A1c goal of less than 7.0% ([facility]) E11.9 2. Type 2 diabetes mellitus with stage 3a chronic kidney disease, with long-term current use of insulin ([facility]) E11.22 N18.31 Z79.4 BG Readings - Blood sugars not available. Pt gets her Dexcom G6 sesnors from [employer]. Shared code for Dexcom to share data with us. Medications - Reviewed current regimen, patient is adherent to regimen. Pt received Novolog vials from pharmacy on 09/13 for Omnipod use and started on Omnipod yesterday. Diet, Exercise, Lifestyle - No significant lifestyle changes since last visit. Discussed with patient today. Patient is agreeable to Dexcom G6 daily. Patient aware to contact clinic if [...] 180 Minimum B Active Insulin Time: 2 FOLLOW UP: Return to clinic in 1 week 09/26/2023 Neeraj Romero RPh, CACP, CDE Clinical Pharmacist Medication Therapy Management Clinic 09/20/2023, 11:20 AM documented in this encounter Plan of Treatment Upcoming Encounters Date Type Department Care Team (Latest Contact Info) Description 09/26/2023 10:40 AM EST Pharmacy Pharmacy, [facility] [address] [facility] [place] [address] Pharmacist1, [facility] [address] [facility] [place] [address] 09/26/2023 11:00 AM EST NeuroDiagnostic Study Neurophysiology [facility] [address] [facility] [place] [address] Thomas Medina, DO [address] [facility] [place] [address] 09/26/2023 12:00 PM EST Nurse Only Ophthalmology, [facility] [address] [place] [address] Stephen, Nurse Paulina [facility] [address] [place] [address] 10/12/2023 10:00 AM EST Home Visit [facility] [address] [place] [address] Jaycee Sorto, RN [address] [place] [address] 10/15/2023 11:00 AM EST Office Visit Cardiology, [facility] [address] [place] [address] Feli Teague, [facility] [address] [place] [address] 11/21/2023 9:20 AM EST Office Visit Family Practice [facility] [address] [facility] [place] [address] Gregory Rausch MD [address] [place] [address] 12/05/2023 10:39 AM EDT Hospital Encounter OR [facility], Operating Room [facility] [address] [place] [id number] Ramsey Burnett, DO [address] [place] [address] 12/05/2023 10:39 AM EDT - 12/05/2023 11:32 AM EDT Surgery OR [facility], Operating Room [facility] [address] [place] [phone] Ramsey Burnett, DO [address] [place] [address] LEFT EXTRACAPSULAR CATARACT REMOVAL COMPLEX WITH IOL 12/06/2023 8:45 AM EDT Office Visit Ophthalmology, [facility] [address] [facility] [place] [address] Ramsey Burnett, [address] [place] [address] 12/13/2023 2:15 PM EDT Office Visit Ophthalmology, [facility] [address] [facility] [place] [address] Ramsey Burnett, [address] [place] [address] 01/10/2024 2:00 PM EDT Office Visit Ophthalmology, [facility] [address] [facility] [place] [address] Ramsey Burnett, DO [address] [place] [address] 02/04/2024 10:20 AM EDT Office Visit Family [facility] [address] [place] [address] Gregory Rausch MD [address] [place] [address] Scheduled Procedures Name Priority Associated Diagnoses Date/Ti [...] Additional history exists CKD PHOS USE SMARTSET 68866 06/18/20242 01/2023, 06/16/2023, 06/15/2023, Additional history exists CKD HGB USE SMARTSET 68194 07/31/202407/313, 07/31/2023, 06/29/2023, Additional history exists Diabetic Eye [...] this encounter Medical Devices Implanted Type Area Concert Or Lecture Hall Manager Device Identifier Shelf Expiration Date Model / Serial / Lot Cath Roselia Single Lumen - [id number] Implanted:Qty : 1 on 03/12/2008 at OR [facility] Left: Chest [employer] *DO NOT USE* 07/25/2012 [id number] / / [id number] Valve Tarsha Aortic [id number] - [id number] Implanted:Qty : 1 on 11/01/2010 at OR [facility] N/A: Heart [employer] 05/20/2012 [id number]-25 / / [id number] Mesh Soft [id number] - [id number] Implanted:Qty : 1 on 10/10/2019 by Gigi Hendrickson MD at OR [facility] N/A: Abdomen CR BARD : DAVOL [id number] 05/21/2024 [id number] / / [id number] Lens 22.5 Sn60wf - [id number] - [id number] Implanted:Qty : 1 on 09/15/2020 by Cece Roland MD at OR [facility] Right: Eye IVA : SURGICAL [id number] 05/13/2025 SN60 WF.225 / [id number] / [id number] documented as of this encounter Visit [...] the patient have Health Care Power of Billet Cutter? No Full Code 10/10/2019 8:40 AM [...] patient or by statute hierarchy) Care Teams Optical Instrument Repairer Relationship Specialty Start Date End Date Gregory Rausch MD [address] [place] [address] PCP - General Family Medicine 02/12/20 documented as of this encounter
--- OUTSIDE RECORDS SUMMARY | 2023-10-27 12:12 | External Medical Summary | Summary of Care ---
Author Name Unknown Organization [facility] Address [address] [place] [address] Phone [phone] Care Team Providers Care Care Director Name Role Phone Gregory Rausch MD Primary Care Provider [phone] Reason for Visit * Reason Comments Diabetes Follow-Up Dosage Adjustment In Person (Anticoag Cl inic) Encounter Details Date Type Department Care Team (Latest Contact Info) Description 09/19/2023 1:40 PM [facility] Telemedicine Pharmacy, [facility] [address] [place] [address] Pharmacist1, [facility] [address] [facility] [place] [address] Type 2 diabetes mellitus with hemoglobin A1c goal of less than 7.0% ([facility])*; Type 2 diabetes mellitus with stage 3a chronic kidney disease, with long-term current use of insulin ([facility]); Type 2 diabetes mellitus with diabetic peripheral angiopathy without gangrene, with long-term current use of insulin ([facility]); Type 2 diabetes mellitus with both eyes affected by mild nonproliferative retinopathy and macular edema, with long-term current use of insulin ([facility]) Allergies Active Allergy Reactions Criticality Noted Date Comments Adhesive Tape 07/02/2017 Can tolerate band-aids Glycerin Other (Please comment) 03/12/2008 Topical agents with glycein-burning & itching Lactose 12/09/2014 Dairy - gas Lisinopril Cough 01/21/2010 Monosodium Glutamate Edema Other 03/12/2008 Hands and feet Penicillins Rash 11/14/2007 documented as of this encounter (statuses as of 09/19/2023) Medications Medication Sig Dispensed Refills Start Date [...] hypoglycemia E11.9 100 Tab 3 07/06/2021 Active [employer] Verio w/Device Kit Use up to 4 times a day E11.9 1 Kit 0 02/10/2022 Active [employer] DelHRBoss Lancets 33G TEST 4 TIMES DAILY DIRECTED, [...] A1c goal of less than 7.0% ([facility]),Type 2 diabetes mellitus with diabetic mononeuropathy, with long-term current use of insulin ([facility]),Type 2 diabetes mellitus with both eyes affected by mild nonproliferative retinopathy and macular edema, with long-term current use of insulin ([facility]),Type 2 diabetes mellitus with stage 3a chronic kidney disease, with long-term current use of insulin ([facility]) Inject 0.75 mL under the skin once a week. 9 mL 3 02/22/2023 Active Fluticasone Propionate 50 MCG/ACT Nasal Suspension (Flonase)Indications: Dizziness Administer 2 Sprays into each nostril in the morning. 16 g 3 03/01/2023 Active metOLazone 2.5 MG Oral Tablet (Zaroxolyn)Indication s:Acute on chronic heart failure with preserved ejection fraction (HFpEF) ([facility]) One tablet one morning twice per week [...] ER 10 MEQ Oral Tablet Extended ReleaseIndications:Ac tunica-biloxi on chronic heart failure with preserved ejection fraction (HFpEF) ([facility]) Take 1 Tablet by mouth in the [...] A1c goal of less than 7.0% ([facility]),Type 2 diabetes mellitus with stage 3a chronic kidney disease, with long-term current use of insulin ([facility]) Inject 30 Units under the skin at bedtime. 6 mL 2 07/31/2023 Active BD Pen Needle Short U/F 31G X 8 MMIndications:Type 2 diabetes mellitus with hemoglobin A1c goal of less than 7.0% ([facility]),Type 2 diabetes mellitus with stage 3a chronic kidney disease, with long-term current use of insulin ([facility]) Use with insulin 4 times daily 400 Each 3 07/31/2023 Active Gaviscon 80-14.2 MG Oral Tablet Chewable (Alum Hydroxide-Mag Trisilicate) Take by mouth as needed. 0 Active Nystatin 235585 UNIT/GM External Powder (Nystop)Indications:C andidal intertrigo APPLY TOPICALLY TO AFFECTED AREA 3 TIMES A DAY. APPLY TO AFFECTED AREAS 60 g 1 08/20/2023 Active Atorvastatin Calcium 40 MG Oral Tablet (Lipitor)Indications: Heart failure, systolic, due to idiopathic cardiomyopathy ([facility]),S/P aortic valve replacement,HTN, goal below 140/80,Dyslipidemia, goal [...] (Neurontin)Indication s:Polyneuropathy associated with underlying disease ([facility]) Take 1 Capsule by mouth in the morning and 1 Capsule at noon and 1 Capsule before bedtime. 90 Capsule 0 09/12/2023 Active documented as of this encounter (statuses as of 09/19/2023) Active Problems Problem Noted Date Diagnosed Date [...] eye 09/28/2020 Coronary artery disease invo lving chil[place] coronary artery of [place] heart without angina pectoris 12/16/2019 Last Assessment [...] as of this encounter (statuses as of 09/19/2023) Resolved Problems Problem Noted Date Diagnosed Date [...] 12/21/2016 Diabetes mellitus 01/05/2014 12/21/2016 LEYVA RESEARCH OTHER*[id number] 01/05/2014 12/21/2016 Axillary pain 11/03/2013 12/21/2016 Obesity, [...] 12/21/2016 FOLLOWING SURGERY, UNSPECIFI ED ([facility] BSO 08/25/2011) 08/26/2011 12/21/2016 ADVANCE DIRECTIVE [...] Record [facility] V710 Clinical Trial*[id number] 12/22/2010 04/14/2011 S/P aortic valve replacement 12/01/2010 08/26/2011 S/P AORTIC VALVE REPLACEMENT - #25 pericardial Mc valve 11/01/2010 06/28/2018 Overview: Aortic valve replacement with #25 pericardial Mc valve, model 2800TFX, serial number [id number] (Dr. Walker) [facility] V710 Clinical Trial*[id number] 10/18/2010 11/21/2010 Body mass index (BMI) of [...] as of this encounter (statuses as of 09/19/2023) Immunizations Name Administration Dates Next Due COVID-19 mRNA, LNP-s, No Pre serve, 2-Dose Series (Moderna) 10/25/2021,02/16/2021,01/18/2021 HEP A - Hepatitis A (Adult > 18 yrs) 06/07/2018, 12/05/2017 Hepatitis B, 20+ yrs 06/07/2018,01/08/20 18,12/05/2017,06/15,10/27/2013,09/12/2013 Pneumococcal Conjugate Vacci ne, 20-valent (Insexzb09) 06/22/2023 Pneumococcal Polysaccharide PPV23 (Pneumovax) 01/02/2008 Seasonal [...] this encounter Progress Notes * Neeraj Matthew, [facility] - 09/19/2023 1:32 PM EST Medication Therapy Disease Management [facility] - Diabetes Management Progress Note Patient here to start Omnipod 5 and Dexcom G6. Jovita Rose, identified by name and date of , is a 62 year old female being seen for diabetes management/education. Patient for telephonic return diabetic visit. DIABETES: Current diabetic medications: DECREASE: Ozempic 1mg every Sunday (1mg = 36 clicks) Metformin 1000mg twice daily STOP when Omnipod started: Tresiba 33 units daily Novolog CF over 200 Omnipod Insulin [...] 2 Medication Injection Site: Abdomen Lifestyle: Diet: unchanged History of Treatment Barriers: Lifestyle: None Therapy considerations: Cost Medication: None Glucose Review/SMBG: Hypoglycemia: Does your blood sugar go below 70 mg/dL? No Hyperglycemia symptoms present: none Goal <7 Recent Labs Units 09/18/23 0932 07/31/23 1134 [...] 12:00 AM HYPERTENSION: Patient on ACEi/ARB: no, stated allergy to Lisinopril BP Readings from Last 3 Encounters: 09/06/23 [...] A1c goal of less than 7.0% ([facility]) E11.9 2. Type 2 diabetes mellitus with stage 3a chronic kidney disease, with long-term current use of insulin ([facility]) E11.22 N18.31 Z79.4 3. Type 2 diabetes mellitus with diabetic peripheral angiopathy without gangrene, with long-term current use of insulin ([facility]) E11.51 Z79.4 4. Type 2 diabetes mellitus with both eyes affected by mild nonproliferative retinopathy and macular edema, with long-term current use of insulin ([facility]) E11.3213 Z79.4 MEDICATION CHANGES: no change Diabetic Medications: Ozempic [...] B Active Insulin Time: 2 FOLLOW UP: Phone call follow up in 1 day 09/20/2023 Neeraj Romero RPh, CACP, CDE Clinical Pharmacist Medication Therapy [facility] 09/19/2023 1:32 PM documented in this encounter Plan of Treatment Upcoming Encounters Date Type Department Care Team (Latest Contact Info) Description 09/20/2023 10:50 AM EST Telemedicine Pharmacy, [facility] [place] [address] [place] [address] Pharmacist1, [facility] [address] [place] [address] 09/26/2023 11:00 AM EST NeuroDiagnostic Study Neurophysiology [facility] [place] [address] [place] [address] Thomas Medina, DO [address] [place] [address] 09/26/2023 12:00 PM EST Nurse Only Ophthalmology, [facility] [address] [facility] [place] [address] Stephen, Nurse Paulina [facility] [address] [place] [address] 10/12/2023 10:00 AM EST [facility] [address] [facility] [place] [address] Jaycee Sorto RN [address] [facility] [place] [address] 10/15/2023 11:00 AM EST Office Visit Cardiology, [facility] [address] [facility] [place] [address] Feli Teague, MUS[place] [address] [facility] [place] [address] 11/21/2023 9:20 AM EST Office Visit Family Practice [facility] [address] [facility] [place] [address] Gregory Rausch MD [address] [place] [address] 12/05/2023 10:39 AM EDT Hospital Encounter [facility], Operating Room [facility] [address] [place] [id number] Ramsey Burnett, DO [address] [facility] [place] [address] 12/05/2023 10:39 AM EDT - 12/05/2023 11:32 AM EDT Surgery [facility], Operating Room [facility] [address] [place] [address] Ramsey Burnett, DO [address] [place] [address] LEFT EXTRACAPSULAR CATARACT REMOVAL COMPLEX WITH IOL 12/06/2023 8:45 AM EDT Office Visit Ophthalmology, [facility] [address] [facility] [place] [address] Ramsey Burnett, DO [address] [place] [address] 12/13/2023 2:15 PM EDT Office Visit Ophthalmology, [facility] [address] [facility] [place] [address] Ramsey Burnett, DO [address] [place] [address] 01/10/2024 2:00 PM EDT Office Visit Ophthalmology, [facility] [address] [facility] [place] [address] Ramsey Burnett, DO [address] [place] [address] 02/04/2024 10:20 AM EDT Office Visit Family Practice [facility] [address] [facility] [place] [address] Gregory Rausch MD [address] [facility] [place] [address] Scheduled Procedures Name Priority Associated Diagnoses Date/Ti [...] Additional history exists CKD PHOS USE SMARTSET 93896 06/18/202405/26, 06/16/2023, 06/15/2023, Additional history exists CKD HGB USE SMARTSET 52929 07/31/202407/31, 07/31/2023, 06/29/2023, Additional history exists Diabetic [...] this encounter Medical Devices Implanted Type Area Tube Drawing Supervisor Device Identifier Shelf Expiration Date Model / Serial / Lot Cath Roselia Single Lumen - [id number] Implanted:Qty : 1 on 03/12/2008 at OR [facility] Left: Chest [employer] *DO NOT USE* 07/25/2012 21-4053-24 / / [id number] Valve Tarsha Aortic [id number] - [id number] Implanted:Qty : 1 on 11/01/2010 at OR [facility] N/A: Heart [employer] DANIEL 05/20/2012 2800TFX-25 / / [id number] Mesh Soft [id number] - [id number] Implanted:Qty : 1 on 10/10/2019 by Gigi Hendrickson MD [place] [facility]/A: Abdomen CR BARD : DAVOL [id number] 05/21/2024 [id number] / / [id number] Lens 22.5 Sn60wf - [id number] - [id number] Implanted:Qty : 1 on 09/15/2020 by Renaldo Cook, Cece Acosta MD at OR [facility] Right: Eye IVA : SURGICAL [id number] 05/13/2025 SN60 WF.225 / [id number] / [id number] documented as of this encounter Visit Diagnoses Diagnosis Type 2 diabetes mellitus with hemoglobin A1c goal of less than 7.0% ([facility])- Primary Type 2 diabetes mellitus with stage 3a chronic kidney disease, with long-term current use of insulin ([facility]) Type 2 diabetes mellitus with diabetic peripheral angiopathy without gangrene, with long-term current use of insulin ([facility]) Type 2 diabetes mellitus with both eyes [...] the patient have Health Care Power of Control Valve Technician? No Full Code 10/10/2019 8:40 AM 10/10/2019 [...] patient or by statute hierarchy) Care Teams Care Director Relationship Specialty Start Date End Date Gregory Rausch MD [address] [address] PCP - General Family Medicine 02/12/20 documented as of this encounter
--- OUTSIDE RECORDS SUMMARY | 2023-10-27 12:12 | External Medical Summary | Summary of Care ---
Author Name Unknown Organization [facility] Address [address] [place] [address] Phone [phone] Care Team Providers Care Compressed Gases Tester Name Role Phone Gregory Rausch MD Primary Care Provider [phone] Reason for Visit * Reason Onset Date Comments [facility]: Maintenance 09/18/2023 Encounter Details Date Type Department Care Team (Late st Contact Info) Description 09/18/2023 Telephone [facility], [facility] [address] [place] [address] [facility], Nurse [facility] [address] [place] [address] [facility]: Maintenance Allergies Active Allergy Reactions Criticality Noted Date Comments Adhesive Tape 07/02/2017 Can tolerate band-aids Glycerin Other (Please comment) 03/12/2008 Topical agents with glycein-burning & itching Lactose 12/09/2014 Dairy - gas Lisinopril Cough 01/21/2010 Monosodium Glutamate Edema Other 03/12/2008 Hands and feet Penicillins Rash 11/14/2007 documented as of this encounter (statuses as of 09/18/2023) Medications Medication Sig Dispensed Refills Start Date [...] hypoglycemia E11.9 100 Tab 3 07/06/2021 Active [employer] Verio w/Device Kit Use up to 4 times a day E11.9 1 Kit 0 02/10/2022 Active [employer]ica Lancets 33G TEST 4 TIMES [...] use of insulin ([facility]) Inject 0.75 mL under the skin once [...] by mouth as needed. 0 Active Nystatin 393240 UNIT/GM External Powder (Nystop)Indications:C andidal intertrigo APPLY [...] as of this encounter (statuses as of 09/18/2023) Active Problems Problem Noted Date Diagnosed Date [...] long actin insulin DM Secondary Prevention o OCRINA Inhibitor / ARB o Moderate-High Intensity Statin o Aspirin Chronic kidney disease, stage 3a 10/04/2020 Overview: Per CKD protocol Cystoid macular edema of right eye 09/28/2020 Coronary artery disease invo lving [place] coronary artery of [place] heart without angina pectoris 12/16/2019 Last Assessment [...] as of this encounter (statuses as of 09/18/2023) Resolved Problems Problem Noted Date Diagnosed Date [...] Per Obesity protocol #1 Muscle tension headache 02/01/2017 11/2 12/2016 Depression with anxiety 12/21/201601/2018 Ventral hernia without [...] 12/21/2016 Diabetes mellitus 01/05/2014 12/21/2016 LEYVA RESEARCH OTHER*[id number] 01/05/2014 12/21/2016 Axillary pain 11/03/2013 12/21/2016 Obesity, [...] 09/201008/26/2011 12/21/2016 FOLLOWING SURGERY, UNSPECIFI ED ([facility] BSO 08/25/2011) 08/26/2011 12/21/2016 ADVANCE DIRECTIVE INFORMATION 04/17/2011 12/21/2016 Overview: Yes, Patient instructed to provide copy of advance directive for provider to review and to be scanned into Electronic Medical Record ADVANCE DIRECTIVE INFORMATION 03/01/2011 12/21/2016 Overview: Yes, Patient instructed to provide copy of advance directive for provider to review and to be scanned into Electronic Medical Record [facility] V710 Clinical Trial*[id number] 12/22/2010 04/14/2011 S/P aortic valve replacement 12/01/2010 08/26/2011 S/P AORTIC VALVE REPLACEMENT - #25 pericardial Mc valve 11/01/2010 06/28/2018 Overview: Aortic valve replacement with #25 pericardial Mc valve, model 2800TFX, serial number [id number] (Dr. Walker) [facility] V710 Clinical Trial*[id number] 10/18/2010 11/21/2010 Body mass index (BMI) of [...] as of this encounter (statuses as of 09/18/2023) Immunizations Name Administration Dates Next Due COVID-19 mRNA, LNP-s, No Pre serve, 2-Dose Series (Moderna) 10/25/2021,02/16/2021,01/18/2021 HEP A - Hepatitis A (Adult > 18 yrs) 06/07/2018, 12/05/2017 Hepatitis B, 20+ yrs 06/07/2018,01/08/20 18,12/05/2017,06/15,10/27/2013,09/12/2013 Pneumococcal Conjugate Vacci ne, 20-valent (Edvhric07) 06/22/2023 Pneumococcal Polysaccharide PPV23 (Pneumovax) 01/02/2008 Seasonal [...] encounter Miscellaneous Notes * Telephone Encounter - Chichi Casey RN - 09/18/2023 2:55 PM EST PC from [facility] pharmacy states pt has new novolog RX placed 09/11/23 to use with omnipod Per [facility] new RX is needed that include Milliliters per novolog draw, frequency of draws And RX for syringes to draw up novolog and place in omnipod Per 01/11/23 RX for omnipod--instructions are to use one omnipod every 3 days Unsure what came in omnipod 5 G6 (gen 5 kit) Please advise and send new RXs for all needed supplies to [facility] pharmacy in [facility] Sending to PCP. PCP was original omnipod orderig provider Also sending to [facility] care teams Chichi Casey RN, BSN [facility] retail customer service representativeAngiography Nurse documented in this encounter Plan of Treatment Upcoming Encounters Date Type Department Care Team (Latest Contact Info) Description 09/19/2023 1:40 PM EST Pharmacy Pharmacy, [facility] [address] [facility] [place] [address] Pharmacist1, [facility] [address] [facility] [place] [address] 09/26/2023 11:00 AM EST NeuroDiagnostic Study Neurophysiology [facility] [address] [facility] [place] [address] Thomas Medina, DO [address] [place] [address] 09/26/2023 12:00 PM EST Nurse Only Ophthalmology, [facility] [address] [place] [address] Nurse Stephen [facility] [address] [place] [address] 10/12/2023 10:00 AM EST [facility] [address] [place] [address] Jaycee Sorto RN [address] [place] [address] 10/15/2023 11:00 AM EST Office Visit Cardiology, [facility] [address] [place] [address] Feli Teague PA-C [address] [place] [address] 11/21/2023 9:20 AM EST Office Visit Family Practice [facility] [address] [place] [address] Gregory Rausch MD [address] [place] [address] 12/05/2023 10:39 AM EDT Hospital Encounter [facility], Operating Room [facility] [address] [address] Ramsey Burnett, DO [address] [facility] [place] [address] 12/05/2023 10:39 AM EDT - 12/05/2023 11:32 AM EDT Surgery [facility], Operating Room [facility] [address] [place] [address] Ramsey Burnett, DO [address] [facility] [place] [address] LEFT EXTRACAPSULAR CATARACT REMOVAL COMPLEX WITH IOL 12/06/2023 8:45 AM EDT Office Visit Ophthalmology, [facility] [address] [facility] [place] [address] Ramsey Burnett, DO [address] [place] [address] 12/13/2023 2:15 PM EDT Office Visit Ophthalmology, [facility] [address] [facility] [place] [address] Ramsey Burnett, DO [address] [place] [address] 01/10/2024 2:00 PM EDT Office Visit Ophthalmology, [facility] [address] [facility] [place] [address] Ramsey Burnett, DO [address] [place] [place] [address] 02/04/2024 10:20 AM EDT Office Visit Family Practice [facility] [address] [facility] [place] [address] Gregory Rausch MD [address] [facility] [place] [address] Scheduled Procedures Name Priority Associated Diagnoses Date/Ti [...] Vaccine (2022- season) 2023 10/25/2021, 02/16/2021, 01/18/2021 HbA1c 01/29/2024 09/18/2023, 110 03/2023, 04/09/2023, Additional history exists GFR 01/31/2024 08/02/2023, 03/2023, 06/28/2023, Additional history exists Albumin/Creatinine Ratio 03/09/2024 023, 12/22/2022, 05/05/2021, Additional history exists TSH 06/06/2024 06/06/2023, 01/23, 12/22/2022, Additional history exists CKD PHOS USE SMARTSET 30111 06/18/202405/26, 06/16/2023, 06/15/2023, Additional history exists CKD HGB USE SMARTSET 91551 07/31/202407/31, 07/31/2023, 06/29/2023, Additional history exists Diabetic [...] this encounter Medical Devices Implanted Type Area Jewel Supervisor Device Identifier Shelf Expiration Date Model / Serial / Lot Cath Roselia Single Lumen - [id number] Implanted:Qty : 1 on 03/12/2008 at OR [facility] Left: Chest [employer] *DO NOT USE* 07/25/2012 21-4053-24 / / [id number] Valve Tarsha Aortic [id number] - [id number] Implanted:Qty : 1 on 11/01/2010 at OR [facility] N/A: Heart MC [employer] DANIEL 05/20/2012 2800TFX-25 / / [id number] Mesh Soft [id number] - [id number] Implanted:Qty : 1 on 10/10/2019 by Gigi Hendrickson MD at [place] [facility] N/A: Abdomen CR BARD : DAVOL [id number] 05/21/2024 [id number] / / [id number] Lens 22.5 Sn60wf - [id number] - [id number] Implanted:Qty : 1 on 09/15/2020 by Renaldo Cook, Cece Acosta MD at [facility] Right: Eye IVA : SURGICAL [id number] 05/13/2025 SN60 WF.225 / [id number] / [id number] documented as of this encounter Advance [...] the patient have Health Care Power of Paper Goods Machine Set Up Operator? No Full Code 10/10/2019 8:40 AM 10/10/2019 5:53 PM This order reflects the patients wishes and were consensually agreed upon. Full Code 11/06/2017 4:55 PM 11/07/2017 7:14 PM This order reflects the patients wishes and were consensually agreed upon. Healthcare Agents on File Name Relationship Healthcare Agent Relationsfl p Communication Gigi Gutierrez [facility] Care Repr esentative (appointed verbally by patient or by statute hierarchy) Care Teams Compressed Gases Tester Relationship Specialty Start Date End Date Gregory Rausch MD [address] [place] [address] PCP - General Family Medicine 02/12/20 documented as of this encounter
--- OUTSIDE RECORDS SUMMARY | 2023-10-27 12:12 | External Medical Summary ---
Author Name Unknown Address Unknown Organization K01:[facility] [place] [address] [place] [address] Laboratory Report Ordering Provider Test Date Status REAL GOMEZ 09/18/2023 09:32:38 Final Observation Date Value Abnormality Reference (Units ) Status Vitamin B12 09/18/2023 09:32:38 [phone] (pg/mL) Final Performing Location [facility] - [address] [place] [address]
--- OUTSIDE RECORDS SUMMARY | 2023-10-27 12:12 | External Medical Summary | Summary of Care ---
Author Name Unknown Organization [facility] Address [address] [place] [address] Phone [phone] Care Team Providers Care Escort Car Driver Name Role Phone Gregory Rausch MD Primary Care Provider [phone] Reason for Visit * Reason Onset Date Comments Medication Refill 09/14/2023 Encounter Details Date Type Department Care Team (Late st Contact Info) Description 09/14/2023 Refill Endocrinology, [place] [address] [place] [address] Cinthia Mcgowan PA-C [address] [place] [address] Type 2 diabetes mellitus with hemoglobin A1c goal of less than 7.0% ([facility]); Type 2 diabetes mellitus with stage 3a chronic kidney disease, with long-term current use of insulin ([facility]) Allergies Active Allergy Reactions Criticality Noted [...] hypoglycemia E11.9 100 Tab 3 07/06/2021 Active [employer] Verio w/Device Kit Use up to 4 times a day E11.9 1 Kit 0 02/10/2022 Active [employer] Delica Lancets 33G TEST 4 TIMES DAILY [...] than 7.0% ([facility]),Type 2 diabetes mellitus with diabetic mononeuropathy, with long-term current use of insulin ([facility]),Type 2 diabetes mellitus with both eyes affected by mild nonproliferative retinopathy and macular edema, with long-term current use of insulin ([facility]),Type 2 diabetes mellitus with stage 3a chronic kidney disease, with long-term current use of insulin ([facility]) Inject 0.75 mL under the skin once a week. 9 mL 3 02/22/2023 Active Fluticasone Propionate 50 MCG/ACT Nasal Suspension (Flonase)Indications: Dizziness Administer 2 Sprays into each nostril in the morning. 16 g 3 03/01/2023 Active metOLazone 2.5 MG Oral Tablet (Zaroxolyn)Indication s:Acute on chronic heart failure with preserved ejection fraction (HFpEF) ([facility]) One tablet one morning twice per [...] fraction (HFpEF) ([facility]) Take 1 Tablet by mouth in [...] than 7.0% ([facility]),Type 2 diabetes mellitus with stage 3a chronic kidney disease, with long-term current use of insulin ([facility]) Inject 30 Units under the skin at bedtime. 6 mL 2 07/31/2023 Active BD Pen Needle Short U/F 31G X 8 MMIndications:Type 2 diabetes mellitus with hemoglobin A1c goal of less than 7.0% ([facility]),Type 2 diabetes mellitus with stage 3a chronic kidney disease, with long-term current use of insulin ([facility]) Use with insulin 4 times daily 400 Each 3 07/31/2023 Active Gaviscon 80-14.2 MG Oral Tablet Chewable (Alum Hydroxide-Mag Trisilicate) Take by mouth as needed. 0 Active Nystatin 398398 UNIT/GM External Powder (Nystop)Indications:C andidal intertrigo APPLY TOPICALLY TO AFFECTED AREA 3 TIMES A DAY. APPLY TO AFFECTED AREAS 60 g 1 08/20/2023 Active Atorvastatin Calcium 40 MG Oral Tablet (Lipitor)Indications: Heart failure, systolic, due to idiopathic cardiomyopathy ([facility]),S/P aortic valve replacement,HTN, goal below 140/80,Dyslipidemia, [...] than 7.0% ([facility]) Use up to 50 units per day [...] eye 09/28/2020 Coronary artery disease invo lving [place] coronary artery of [place] heart without angina pectoris 12/16/2019 Last Assessment [...] 12/21/2016 Diabetes mellitus 01/05/2014 12/21/2016 LEYVA RESEARCH OTHER*[id number] 01/05/2014 12/21/2016 Axillary pain 11/03/2013 12/21/2016 Obesity, [...] cath 09/201008/26/2011 12/21/2016 FOLLOWING SURGERY, UNSPECIFI ED ([facility] BSO 08/25/2011) 08/26/2011 12/21/2016 ADVANCE DIRECTIVE INFORMATION 04/17/2011 12/21/2016 Overview: Yes, Patient instructed to provide copy of advance directive for provider to review and to be scanned into Electronic Medical Record ADVANCE DIRECTIVE INFORMATION 03/01/2011 12/21/2016 Overview: Yes, Patient instructed to provide copy of advance directive for provider to review and to be scanned into Electronic Medical Record [facility] V710 Clinical Trial*[id number] 12/22/2010 04/14/2011 S/P aortic valve replacement 12/01/2010 08/26/2011 S/P AORTIC VALVE REPLACEMENT - #25 pericardial Mc valve 11/01/2010 06/28/2018 Overview: Aortic valve replacement with #25 pericardial Mc valve, model 2800TFX, serial number [id number] (Dr. Walker) [facility] V710 Clinical Trial*[id number] 10/18/2010 11/21/2010 Body mass index (BMI) of [...] 06/07/2018,01/08/20 18,12/05/2017,06/15,10/27/2013,09/12/2013 Pneumococcal Conjugate Vacci ne, 20-valent ([id number]) 06/22/2023 Pneumococcal Polysaccharide PPV23 (Pneumovax) 01/02/2008 Seasonal [...] encounter Miscellaneous Notes * Telephone Encounter - Antoinette Sam MED ASSIST - 09/18/2023 8:51 AM EST Pending Prescriptions: Disp Refills BD Pen Needle Short U/F 31G X 8 MM 400 Ea*3 Sig: Use with insulin 4 times daily * Telephone Encounter - Antoinette Sam MED ASSIST - 09/18/2023 8:51 AM EST This medication has been pended for renewal in accordance with our office medication renewal policy. Pending Prescriptions: Disp Refills BD Pen Needle Short U/F 31G X 8 MM 400 Ea*3 Sig: Use with insulin 4 times daily 05/05/2021 (in office), 07/27/2023 (telemedicine) Visit date not found If no future appointments scheduled, and last appointment is greater than a year ago, please schedule patient for a follow-up appointment Last date the medication was ordered: 07/31/2023 Pharmacy: [facility] [id number] [place] [address] Labs: Lab Results Component Value Date/Time CREAT GFR 0.65 07/02/2017 12:19 PM CREATININE - [facility] 0.8 07/31/2023 11:34 AM CREATININE - [facility] 1.2 (H) 09/07/2020 10:58 AM CREATININE ISTAT 0.9 10/15/2017 12:22 PM CREATININE, BLD (G-[facility]) 0.69 11/03/2013 06:40 PM CREATININE, RANDOM URINE - [facility] 21 03/09/2023 12:44 PM CREATININE, RANDOM URINE - [facility] 140 03/21/2017 10:41 AM CREATININE-OUTSIDE LAB 0.80 08/02/2023 12:00 AM No components found for: "E G" * Telephone Encounter - Tere Mc OSA - 09/18/2023 8:33 AM ESTPending Prescriptions: Disp Refills BD Pen Needle Short U/F 31G X 8 MM 400 Ea*3 Sig: Use with insulin 4 times daily documented in this encounter Plan of Treatment Upcoming Encounters Date Type Department Care Team (Latest Contact Info) Description 09/19/2023 1:40 PM EST Pharmacy Pharmacy, [facility] [address] [place] [address] Pharmacist1, [facility] [address] [place] [address] 09/26/2023 11:00 AM EST NeuroDiagnostic Study Neurophysiology [facility] [address] [place] [address] Thomas Medina, [address] [place] [address] 09/26/2023 12:00 PM EST Nurse Only Ophthalmology, Perla Bach [place] [address] [facility] [place] [address] Stephen Nurse Paulina Neumanns [address] [place] [address] 10/12/2023 10:00 AM EST [facility], [facility] [address] [place] [address] Jaycee Sorto, RN [address] [place] [address] 10/15/2023 11:00 AM EST Office Visit Cardiology, [facility] [address] [place] [address] Feli Teague PA-C [address] [place] [address] 11/21/2023 9:20 AM EST Office Visit Family Practice [facility] [address] [place] [address] Gregory Rausch MD [address] [place] [address] 12/05/2023 10:39 AM EDT Hospital Encounter [facility], Operating Room [facility] [address] [place] [address] Ramsey Burnett, DO [address] [place] [address] 12/05/2023 10:39 AM EDT - 12/05/2023 11:32 AM EDT Surgery [facility], Operating Room [facility] [address] [place] [address] Ramsey Burnett, [address] [place] [address] LEFT EXTRACAPSULAR CATARACT REMOVAL COMPLEX WITH IOL 12/06/2023 8:45 AM EDT Office Visit Ophthalmology, [facility] [address] [place] [address] Ramsey Burnett, DO [address] [place] [address] 12/13/2023 2:15 PM EDT Office Visit Ophthalmology, [facility] [address] [place] [address] Ramsey Burnett, DO [address] [place] [address] 01/10/2024 2:00 PM EDT Office Visit Ophthalmology, [facility] [address] [place] [address] Ramsey Burnett, DO [address] [place] [address] 02/04/2024 10:20 AM EDT Office Visit Family Practice [facility] 132 [facility] [place] [address] Gregory Rausch MD [address] [facility] [place] [address] Scheduled Procedures Name Priority Associated Diagnoses Date/Ti [...] 02/13/2023, Additional history exists GFR 01/31/2024 08/02/2023, 11/0 03/2023, 06/28/2023, Additional history exists Albumin/Creatinine Ratio 03/09/2024 023, 12/22/2022, 05/05/2021, Additional history exists TSH 06/06/2024 06/06/2023, 01/23, 12/22/2022, Additional history exists CKD PHOS USE SMARTSET 58189 06/18/202405/26, 06/16/2023, 06/15/2023, Additional history exists CKD HGB USE SMARTSET 81053 07/31/202407/31, 07/31/2023, 06/29/2023, Additional history exists Diabetic [...] this encounter Medical Devices Implanted Type Area Cash Room Clerk Device Identifier Shelf Expiration Date Model / Serial / Lot Cath Roselia Single Lumen - [id number] Implanted:Qty : 1 on 03/12/2008 at OR [facility] Left: Chest [employer] *DO NOT USE* 07/25/2012 21-4053-24 / / [id number] Valve Tarsha Aortic [id number] - [id number] Implanted:Qty : 1 on 11/01/2010 at OR [facility] N/A: Heart [employer] DANIEL 05/20/2012 2800TFX-25 / / [id number] Mesh Soft [id number] - [id number] Implanted:Qty : 1 on 10/10/2019 by Gigi Hendrickson MD at [place] [facility] N/A: Abdomen CR BARD : DAVOL [id number] 05/21/2024 [id number] / / [id number] Lens 22.5 Sn60wf - [id number] - [id number] Implanted:Qty : 1 on 09/15/2020 by Renaldo Cook, Cece Acosta MD at OR [facility] Right: Eye IVA : SURGICAL [id number] 05/13/2025 SN60 WF.225 / [id number] / [id number] documented as of this encounter Visit Diagnoses Diagnosis Type 2 diabetes mellitus with hemoglobin A1c goal of less than 7.0% (HCC) Type 2 diabetes mellitus with stage [...] the patient have Health Care Power of Hospital Librarian? No Full Code 10/10/2019 8:40 AM 10/10/2019 [...] patient or by statute hierarchy) Care Teams Escort Car Driver Relationship Specialty Start Date End Date Gregory Rausch MD [address] [place] [address] PCP - General Family Medicine 02/12/20 documented as of this encounter
--- OUTSIDE RECORDS SUMMARY | 2023-10-27 12:12 | External Medical Summary | Summary of Care ---
Author Name Unknown Organization [facility] Address [address] [place] [address] Phone [phone] Care Team Providers Care Development Educator Name Role Phone Gregory Rausch MD Primary Care Provider [phone] Reason for Visit * Reason Comments Outpatient Testing Encounter Details Date Type Department Care Team (Late st Contact Info) Description 09/18/2023 9:30 AM EST Laboratory Laboratory, [facility] [address] [place] [address] [facility] [address] [place] [address] DM type 2, not at goal ([facility]); Polyneuropathy associated with underlying disease ([facility]) Allergies Active Allergy Reactions Criticality Noted Date [...] hypoglycemia E11.9 100 Tab 3 07/06/2021 Active [employer] Verio w/Device Kit Use up to 4 times a day E11.9 1 Kit 0 02/10/2022 Active [employer] Delica Lancets 33G TEST 4 TIMES DAILY [...] by mouth as needed. 0 Active Nystatin 932003 UNIT/GM External Powder (Nystop)Indications:C andidal intertrigo APPLY [...] eye 09/28/2020 Coronary artery disease invo lving [place] coronary artery of [place] heart without angina pectoris 12/16/2019 Last Assessment [...] 12/21/2016 Diabetes mellitus 01/05/2014 12/21/2016 LEYVA RESEARCH OTHER*[id number] 01/05/2014 12/21/2016 Axillary pain 11/03/2013 12/21/2016 Obesity, [...] cath 09/201008/26/2011 12/21/2016 FOLLOWING SURGERY, UNSPECIFI ED ([facility] BSO 08/25/2011) 08/26/2011 12/21/2016 ADVANCE DIRECTIVE INFORMATION 04/17/2011 12/21/2016 Overview: Yes, Patient instructed to provide copy of advance directive for provider to review and to be scanned into Electronic Medical Record ADVANCE DIRECTIVE INFORMATION 03/01/2011 12/21/2016 Overview: Yes, Patient instructed to provide copy of advance directive for provider to review and to be scanned into Electronic Medical Record [facility] V710 Clinical Trial*[id number] 12/22/2010 04/14/2011 S/P aortic valve replacement 12/01/2010 08/26/2011 S/P AORTIC VALVE REPLACEMENT - #25 pericardial Mc valve 11/01/2010 06/28/2018 Overview: Aortic valve replacement with #25 pericardial Mc valve, model 2800TFX, serial number [id number] (Dr. Walker) [facility] V710 Clinical Trial*[id number] 10/18/2010 11/21/2010 Body mass index (BMI) of [...] 06/07/2018,01/08/20 18,12/05/2017,06/15,10/27/2013,09/12/2013 Pneumococcal Conjugate Vacci ne, 20-valent ([id number]) 06/22/2023 Pneumococcal Polysaccharide PPV23 (Pneumovax) 01/02/2008 Seasonal [...] Description 09/19/2023 1:40 PM EST Pharmacy Pharmacy, [facility] [address] [facility] [place] [address] Pharmacist1, [facility] [address] [facility] [place] [address] 09/26/2023 11:00 AM EST NeuroDiagnostic Study Neurophysiology [facility] [address] [facility] [place] [address] Thomas Medina, DO [address] [facility] [place] [address] 09/26/2023 12:00 PM EST Nurse Only Ophthalmology, [facility] [address] [place] [address] Stephen Nurse Paulina [facility] [address] [place] [address] 10/12/2023 10:00 AM EST [facility] [address] [place] [address] Jaycee Sorto, RN [address] [place] [address] 10/15/2023 11:00 AM EST Office Visit Cardiology, [facility] [address] [place] [address] Feli Teague PA-C [address] [place] [address] 11/21/2023 9:20 AM EST Office Visit Family Practice [facility] [address] [place] [address] Gregory Rausch MD [address] [place] [address] 12/05/2023 10:39 AM EDT Hospital Encounter [facility], Operating Room [facility] [address] [place] [address] Ramsey Burnett, DO [address] [place] [address] 12/05/2023 10:39 AM EDT - 12/05/2023 11:32 AM EDT Surgery [facility], Operating Room [facility] [address] [place] [phone] Ramsey Burnett, DO [address] [place] [address] LEFT EXTRACAPSULAR CATARACT REMOVAL COMPLEX WITH IOL 12/06/2023 8:45 AM EDT Office Visit Ophthalmology, [facility] 132 [facility] [place] [address] Ramsey Burnett, DO [address] [place] [address] 12/13/2023 2:15 PM EDT Office Visit Ophthalmology, [facility] [address] [place] [address] Ramsey Burnett, DO [address] [place] [address] 01/10/2024 2:00 PM EDT Office Visit Ophthalmology, [facility] [address] [facility] [place] [address] Ramsey Burnett, DO [address] [facility] [place] [address] 02/04/2024 10:20 AM EDT Office Visit Family Practice [facility] [address] [place] [address] Gregory Rausch MD [address] [place] [address] Pending Results Name Type Priority Associated Diagnoses Date /Time HEMOGLOBIN A1C Lab Routine DM type 2, not at goal (HCC) 09/18/2023 9:32 AM EST VITAMIN B12 Lab Routine Polyneuropathy associated with underlying disease (HCC) 09/18/2023 9:32 AM EST Scheduled Procedures Name Priority Associated [...] Additional history exists CKD PHOS USE SMARTSET 31677 06/18/202405/26, 06/16/2023, 06/15/2023, Additional history exists CKD HGB USE SMARTSET 68796 07/31/202407/31, 07/31/2023, 06/29/2023, Additional history exists Diabetic [...] this encounter Medical Devices Implanted Type Area Patient Companion Device Identifier Shelf Expiration Date Model / Serial / Lot Cath Roselia Single Lumen - [id number] Implanted:Qty : 1 on 03/12/2008 at OR [facility] Left: Chest [facility] *DO NOT USE* 07/25/2012 21-4053-24 / / [id number] Valve Tarsha Aortic [id number] - [id number] Implanted:Qty : 1 on 11/01/2010 at OR [facility] N/A: Heart [employer] DANIEL 05/20/2012 2800TFX-25 / / [id number] Mesh Soft [id number] - [id number] Implanted:Qty : 1 on 10/10/2019 by Gigi Hendrickson MD at OR [facility] N/A: Abdomen CR BARD : DAVOL [id number] 05/21/2024 [id number] / / [id number] Lens 22.5 Sn60wf - [id number] - [id number] Implanted:Qty : 1 on 09/15/2020 by Renaldo Cook, Cece Acosta MD at OR [facility] Right: Eye IVA : SURGICAL [id number] 05/13/2025 SN60 WF.225 / [id number] / [id number] documented as of this encounter Visit Diagnoses Diagnosis DM type 2, not at goal (HCC) Type II or unspecified type diabetes mellitus without mention of complication, not stated as uncontrolled Polyneuropathy associated with underlying disease (HCC) Cataract [...] patient have Health Care Power of Manager Rehab? No Full Code 10/10/2019 8:40 AM 10/10/2019 5:53 PM This order reflects the patients wishes and were consensually agreed upon. Full Code 11/06/2017 4:55 PM 11/07/2017 7:14 PM This order reflects the patients wishes and were consensually agreed upon. Healthcare Agents on File Name Relationship Healthcare Agent Relationshi p Communication [facility] Child Health Care Repr esentative (appointed verbally by patient or by statute hierarchy) Care Teams Development Educator Relationship Specialty Start Date End Date Gregory Rausch MD [address] [place] [address] PCP - General Family Medicine 02/12/20 documented as of this encounter
--- OUTSIDE RECORDS SUMMARY | 2023-10-27 12:12 | External Medical Summary | Summary of Care ---
Author Name Unknown Organization [facility] Address [address] [place] [address] Phone [phone] Care Team Providers Care Production Tool Engineer Name Role Phone Gregory Rausch MD Primary Care Provider [phone] Reason for Visit * Reason Comments Cataracts 2 year Exam. Pt stat es "Vision is not the greatest" Encounter Details Date Type Department Care Team (Late st Contact Info) Description 09/13/2023 3:45 PM EST Office Visit Ophthalmology, [facility] [address] [place] [address] Ramsey Burnett, DO [place], [place] [id number] Age-related nuclear cataract of left eye*; Mild nonproliferative diabetic retinopathy of both eyes without macular edema associated with type 2 diabetes mellitus (HCC) Allergies Active Allergy Reactions Criticality Noted Date Comments Adhesive Tape 07/02/2017 Can tolerate band-aids Glycerin Other (Please comment) 03/12/2008 Topical agents with glycein-burning & itching Lactose 12/09/2014 Dairy - gas Lisinopril Cough 01/21/2010 Monosodium Glutamate Edema Other 03/12/2008 Hands and feet Penicillins Rash 11/14/2007 documented as of this encounter (statuses as of 09/15/2023) Medications Medication Sig Dispensed Refills Start Date [...] hypoglycemia E11.9 100 Tab 3 07/06/2021 Active LalaToEvena Medical Verio w/Device Kit Use up to 4 times a day E11.9 1 Kit 0 02/10/2022 Active LalaTouch Delica Lancets 33G TEST 4 TIMES DAILY [...] A1c goal of less than 7.0% ([facility]),Type 2 diabetes mellitus with diabetic mononeuropathy, with long-term current use of insulin ([facility]),Type 2 diabetes mellitus with both eyes affected by mild nonproliferative retinopathy and macular edema, with long-term current use of insulin ([facility]),Type 2 diabetes mellitus with stage 3a chronic kidney disease, with long-term current use of insulin ([facility]) Inject 0.75 mL under the skin once a week. 9 mL 3 02/22/2023 Active Fluticasone Propionate 50 MCG/ACT Nasal Suspension (Flonase)Indications: Dizziness Administer 2 Sprays into each nostril in the morning. 16 g 3 03/01/2023 Active metOLazone 2.5 MG Oral Tablet (Zaroxolyn)Indication s:Acute on chronic heart failure with preserved ejection fraction (HFpEF) ([facility]) One tablet one morning twice [...] ER 10 MEQ Oral Tablet Extended ReleaseIndications:Ac [place] on chronic heart failure with preserved ejection fraction (HFpEF) ([facility]) Take 1 Tablet by mouth [...] A1c goal of less than 7.0% ([facility]),Type 2 diabetes mellitus with stage 3a chronic kidney disease, with long-term current use of insulin ([facility]) Inject 30 Units under the skin at bedtime. 6 mL 2 07/31/2023 Active BD Pen Needle Short U/F 31G X 8 MMIndications:Type 2 diabetes mellitus with hemoglobin A1c goal of less than 7.0% ([facility]),Type 2 diabetes mellitus with stage 3a chronic kidney disease, with long-term current use of insulin ([facility]) Use with insulin 4 times daily 400 Each 3 07/31/2023 Active Gaviscon 80-14.2 MG Oral Tablet Chewable (Alum Hydroxide-Mag Trisilicate) Take by mouth as needed. 0 Active Nystatin [id number] UNIT/GM External Powder (Nystop)Indications:C andidal intertrigo APPLY TOPICALLY TO AFFECTED AREA 3 TIMES A DAY. APPLY TO AFFECTED AREAS 60 g 1 08/20/2023 Active Atorvastatin Calcium 40 MG Oral Tablet (Lipitor)Indications: Heart failure, systolic, due to idiopathic cardiomyopathy ([facility]),S/P aortic valve replacement,HTN, goal below [...] A1c goal of less than 7.0% ([facility]) Use up to 50 units per day in Omnipod. 5 Each 3 09/11/2023 Active Gabapentin 100 MG Oral Capsule (Neurontin)Indication s:Polyneuropathy associated with underlying disease (HCC) Take 1 Capsule by mouth in the morning and 1 Capsule at noon and 1 Capsule before bedtime. 90 Capsule 0 09/12/2023 Active documented as of this encounter (statuses as of 09/15/2023) Active Problems Problem Noted Date Diagnosed Date [...] eye 09/28/2020 Coronary artery disease invo lving [place] coronary artery of [place] heart without angina pectoris 12/16/2019 Last Assessment [...] as of this encounter (statuses as of 09/15/2023) Resolved Problems Problem Noted Date Diagnosed Date [...] 12/21/2016 Diabetes mellitus 01/05/2014 12/21/2016 LEYVA RESEARCH OTHER*[id number] 01/05/2014 12/21/2016 Axillary pain 11/03/2013 12/21/2016 Obesity, [...] cath 09/201008/26/2011 12/21/2016 FOLLOWING SURGERY, UNSPECIFI ED ([facility] 08/25/2011) 08/26/2011 12/21/2016 ADVANCE DIRECTIVE INFORMATION 04/17/2011 12/21/2016 Overview: Yes, Patient instructed to provide copy of advance directive for provider to review and to be scanned into Electronic Medical Record ADVANCE DIRECTIVE INFORMATION 03/01/2011 12/21/2016 Overview: Yes, Patient instructed to provide copy of advance directive for provider to review and to be scanned into Electronic Medical Record [facility] V710 Clinical Trial*[id number] 12/22/2010 04/14/2011 S/P aortic valve replacement 12/01/2010 08/26/2011 S/P AORTIC VALVE REPLACEMENT - #25 pericardial Mc valve 11/01/2010 06/28/2018 Overview: Aortic valve replacement with #25 pericardial Mc valve, model 2800TFX, serial number [id number] (Dr. Walker) [facility] V710 Clinical Trial*[id number] 10/18/2010 11/21/2010 Body mass index (BMI) of [...] as of this encounter (statuses as of 09/15/2023) Immunizations Name Administration Dates Next Due COVID-19 mRNA, LNP-s, No Pre serve, 2-Dose Series (Moderna) 10/25/2021,02/16/2021,01/18/2021 HEP A - Hepatitis A (Adult > 18 yrs) 06/07/2018, 12/05/2017 Hepatitis B, 20+ yrs 06/07/2018,01/08/20 18,12/05/2017,06/15,10/27/2013,09/12/2013 Pneumococcal Conjugate Vacci ne, 20-valent ([id number]) 06/22/2023 Pneumococcal Polysaccharide PPV23 (Pneumovax) 01/02/2008 Seasonal [...] as of this encounter Progress Notes * Ramsey Burnett, DO - 09/13/2023 4:25 PM EST 09/13/23 Jovita Rose is a 62 year old patient here for cataract evaluation. Referred by Dr. Elkins Patient c/o progressively increasing difficulty with vision in left eyes at distance > near. Also c/o significant glare and halos around lights. The following activities are more difficult because of blurred vision from the cataract in the leftEYE : Reading the newspaper: No Reading medication labels: No Watching TV: yes Driving during the day: No Driving at night: yes Recognizing people: No Past Ocular History, reviewed: Pseudophakia OD ([place]) Mild NPDR OU DME and pseudophakia CME OD Cataract OS Eye Medications, reviewed: Denies Hx of refractive procedure, reviewed: Denies Hx of contact lens use, reviewed: Denies Hx of eye trauma, reviewed: Denies FOHx, reviewed: Denies Review of Systems Unless noted above, all other systems negative. Nursing notes reviewed. Base Eye Exam Visual Acuity (Snellen - Linear) Right Left Dist sc 20/70 -2 20/40 -2 Dist ph sc 20/60 -1 Tonometry (Tonopen, 4:09 PM) Right Left Pressure 10 10 Pupils Light Shape React APD Right 3 Round Brisk None Left 3 Round Brisk None Visual Hernández (Counting fingers) Right Left Full Full Extraocular Movement Right Left Full Full Neuro/Psych Oriented x3: Yes Mood/Affect: Normal Dilation Both eyes: 0.5% Proparacaine, 1.0% Mydriacyl @ 4:09 PM Additional Tests Keratometry K1 [place] K2 [place] Right 44.25 153 45.25 063 Left 44.50 050 45.25 140 Slit Lamp and Fundus Exam External Exam Right Left External Normal Normal Slit Lamp Exam Right Left Lids/Lashes Normal verruca UL Conjunctiva/Sclera White and quiet White and quiet Cornea Debris in tear film, no guttata Debris in tear film, no guttata Anterior Chamber Deep and quiet Deep and quiet Iris Round and reactive, No neovascularization, dilates 6 mm Round and reactive, No neovascularization, dilates 6 mm Lens PCIOL, 2+ PCO Cortical spokes, 2+ Nuclear sclerosis Fundus Exam Right Left Vitreous Normal Normal Disc full rims tilted, PPA C/D Ratio 0.3 0.3 Macula MA's MA's Vessels Arteriolar narrowing Arteriolar narrowing Periphery Normal mid-periphery, No diabetic retinopathy Normal mid-periphery, No diabetic retinopathy Refraction Manifest Refraction (Auto) Sphere Cylinder [place] Right -0.75 +1.75 174 Left -1.25 +1.25 163 Date: 09/13/23 OCT Macula: OD - ?sliver SRF OS - No edema A/P: Cataract OS Recommend CE/IOL Left eye . Risks, benefits, and alternatives were discussed with the patient. Explained the elective nature of the procedure and that no surgery is without risk. Discussed the optionof continued non-surgical management and risks of worsening disease. Explained goals of surgery. No promises made re: outcome. Discussed options including glasses, surgery, observation. All pertinentrisks and benefits reviewed with patient, including but not limited to: posterior capsule rupture, need for anterior vitrectomy, dropped/retained lens material, pain, inflammation, infection, abnormal IOP, retinal tear, retinal detachment, bleeding, need for more treatment/surgery, permanent visionloss. Typical postop course discussed and explained potential need for adjustment based on clinicalcourse. The patient verbalized understanding of options, risks/benefits/alternatives of options, and that all questions/concerns were addressed. The patient verbalized a desire to proceed for CE/IOL Indication for removal = visually-significant left eye Indication for cataract removal explained to patient, as well as expected postoperative visual outcome in setting of the patient's specific overall ocular health. Dilates = Fair 6mm - ring used for OD; will pursue as if Malyugin ring to be used Guttata = None PXF=none Retina = Stable, Dr. Elkins cleared her Flomax = Denies Claustrophobia = Denies Anesthesia = Mac/topical Hx of refractive procedure=Denies IOL Measurements = Use previous IOL interpretation = Biometry (IOL) & topography (if indicated) will be obtained in near futureto determine the intended refractive target for this patient. These choices will be reflected in the final selection of the intraocular lens at the time of surgery. Discussed options for surgical anesthesia and potential risks/benefits/alternatives of all options. Discussed need for post-operative drops. Discussed potential need for corrective lenses post-operatively. Discussed possible need for anterior vitrectomy Discussed need for post-operative laser procedure (Nd:YAG capsulotomy). Discussed other potential causes for current decreased visual acuity. The patient was strongly encouraged to call with any questions regarding surgery before and after. Will place patient on ketorolac/pred forte pre and post op; will also add Omidria during surgery given persistent fluid post op OD to try and decrease chance of this occurring OS Pseudophakia OD PCO, OD -Looks great, mild PCO, will deal with PCO down the road when needed and pre- treat/treat with pred/ketorolac given hx of persistent fluid post op CE Mild NPDR OU Hx of DME, Pseudophakia CME OD -Cont f/u with retina - lapse in evaluation though eye exam looks largely stable -OCT today - update to retina RTC DOS or sooner prn. A/P explained, patient verbalized understanding. Patient understands to f/u immediately with questions, concerns, or any ophthalmic issues. Ramsey Burnett DO 09/13/23 I spent a total of 30-39 minutes (exact time 30 mins) on the date of service in preparation, delivery, and documentation of the care provided to Jovita Rose excluding any time spent in the performance of separately billed services. documented in this encounter Nursing Notes * Tito Hutchinson COA - 09/13/2023 4:02 PM EST 2 year Exam/Cataract Check Pt states "Vision is not the greatest" Do you check your sugar daily? YES. Fasting BS this mornin mg/dl. Last Hemoglobin A1C: Lab Results Component Value Date/Time HGBA1C 6.3 (H) 07/31/2023 11:34 AM HGBA1C 7.9 (H) 04/09/2023 01:44 PM HGBA1C 9.2 (H) 02/13/2023 10:38 AM HGBA1C 8.3 (H) 12/09/2019 01:49 PM HGBA1C 8.1 (H) 10/14/2019 06:38 AM HGBA1C 8.0 (H) 03/14/2019 04:12 PM documented in this encounter Plan of Treatment Upcoming Encounters Date Type Department Care Team (Latest Contact Info) Description 09/18/2023 9:30 AM EST Laboratory Laboratory, [facility] [address] [phone] Yanelis Bach [address] [address] 09/19/2023 1:40 PM EST Pharmacy Pharmacy, [facility] [address] [place] [address] Pharmacist1, [facility] [address] [place] [address] 09/26/2023 11:00 AM EST NeuroDiagnostic Study Neurophysiology [facility] [address] [place] [address] Thomas Medina, DO [address] [facility] [place] [address] 09/26/2023 12:00 PM EST Nurse Only Ophthalmology, [facility] [address] [address] Nurse Paulina Mitchell [address] [address] 10/12/2023 10:00 AM EST [facility] Visit [facility] [address] [address] Jaycee Sorto RN [address] [place] [address] 10/15/2023 11:00 AM EST Office Visit Cardiology, [facility] [address] [place] [address] Feli Teague, [place] [address] [place] [address] 11/21/2023 9:20 AM EST Office Visit [facility] [address] [facility] [place] [address] Gregory Rausch MD [address] [place] [address] 12/05/2023 10:39 AM EDT Hospital Encounter [facility], Operating Room [facility] [address] [place] [phone] Ramsey Burnett, DO [address] [address] 12/05/2023 10:39 AM EDT - 12/05/2023 11:32 AM EDT Surgery OR [facility], Operating Room [facility] [address] [phone] Ramsey Burnett, DO [address] [address] LEFT EXTRACAPSULAR CATARACT REMOVAL COMPLEX WITH IOL 12/06/2023 8:45 AM EDT Office Visit Ophthalmology, [facility] [address] [place] [address] Ramsey Burnett, DO [address] [address] 12/13/2023 2:15 PM EDT [facility] [address] [facility] [address] Ramsey Burnett, DO [address] [address] 01/10/2024 2:00 PM EDT Office Visit Ophthalmology, [facility] [address] [place] [address] Ramsey Burnett, DO [address] [address] 02/04/2024 10:20 AM EDT Office Visit Family Practice [facility] [address] [place] [address] Gregory Rausch MD [address] [place] [address] Scheduled Orders Name Type Priority Associated Diagnoses Orde r Schedule RETINA SCAN DIAGNOSTIC IMAGE, POSTERIOR Procedures Routine Mild nonproliferative diabetic retinopathy of both eyes without macular edema associated with type 2 diabetes mellitus (HCC) Ordered: 09/15/2023 Scheduled Procedures Name Priority Associated Diagnoses Date/Ti [...] Additional history exists CKD PHOS USE SMARTSET 63505 06/18/202405/26, 06/16/2023, 06/15/2023, Additional history exists CKD HGB USE SMARTSET 52117 07/31/202407/31, 07/31/2023, 06/29/2023, Additional history exists Diabetic [...] this encounter Medical Devices Implanted Type Area Specialist Employee Labor Relations Device Identifier Shelf Expiration Date Model / Serial / Lot Cath Roselia Single Lumen - [id number] Implanted:Qty : 1 on 03/12/2008 at OR [facility] Left: Chest [employer] *DO NOT USE* 07/25/2012 21-4053-24 / / [id number] Valve Tarsha Aortic [id number] - [id number] Implanted:Qty : 1 on 11/01/2010 at OR [facility] N/A: Heart [employer] 05/20/2012 [id number] / / [id number] Mesh Soft 96l12yn - [id number] Implanted:Qty : 1 on 10/10/2019 [place] [facility] [place]: Abdomen CR BARD : DAVOL [id number] 05/21/2024 [id number] / / [id number] Lens 22.5 Sn60wf - [id number] - [id number] Implanted:Qty : 1 on 09/15/2020 by Renaldo Cook, Cece Acosta MD at OR [facility] Right: Eye IVA : SURGICAL [id number] 05/13/2025 SN60 WF.[id number] / [id number] / [id number] documented as of this encounter Visit Diagnoses Diagnosis Age-related nuclear cataract of left eye- Primary Senile nuclear sclerosis Mild nonproliferative diabetic retinopathy of both eyes without macular edema associated with type 2 diabetes mellitus (HCC) Cataract Unspecified cataract documented in this [...] the patient have Health Care Power of Pyrotechnician? No Full Code 10/10/2019 8:40 AM 10/10/2019 [...] patient or by statute hierarchy) Care Teams Production Tool Engineer Relationship Specialty Start Date End Date Gregory Rausch MD [address] [place] [address] PCP - General Family Medicine 02/12/20 documented as of this encounter
--- OUTSIDE RECORDS SUMMARY | 2023-10-27 12:13 | External Medical Summary | Summary of Care ---
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 Name Role Phone Deon Rausch MD Primary Care Provider [phone] Reason for Visit * Reason Comments Acute Encounter Details Date Type Department Care Team (Latest Contact Info) Description 09/12/2023 1:00 PM [facility] Telemedicine Family Practice [facility] [address] [place] [address] Angeline Puentes, [address] [facility] [id number] Polyneuropathy associated with underlying disease ([facility])*; Thrombocytopenia ([facility]) Allergies Active Allergy Reactions Criticality Noted Date Comments Adhesive Tape 07/02/2017 Can tolerate band-aids Glycerin Other (Please comment) 03/12/2008 Topical agents with glycein-burning & itching Lactose 12/09/2014 Dairy - gas Lisinopril Cough 01/21/2010 Monosodium Glutamate Edema Other 03/12/2008 Hands and feet Penicillins Rash 11/14/2007 documented as of this encounter (statuses as of 09/12/2023) Medications Medication Sig Dispensed Refills Start Date [...] hypoglycemia E11.9 100 Tab 3 07/06/2021 Active BioDermToIntraStage Verio w/Device Kit Use up to 4 times a day E11.9 1 Kit 0 02/10/2022 Active BioDermToIntraStage Delica Lancets 33G TEST 4 TIMES DAILY [...] long-term current use of insulin ([facility]),Type 2 diabetes mellitus with both eyes affected by mild nonproliferative retinopathy and macular edema, with long-term current use of insulin ([facility]),Type 2 diabetes mellitus with stage 3a chronic kidney disease, with long-term current use of insulin ([facility]) Inject 0.75 mL under the skin once a week. 9 mL 3 02/22/2023 Active Fluticasone Propionate 50 MCG/ACT Nasal Suspension (Flonase)Indications: Dizziness Administer 2 Sprays into each nostril in the morning. 16 g 3 03/01/2023 Active metOLazone 2.5 MG Oral Tablet (Zaroxolyn)Indication s:Acute on chronic heart failure with preserved ejection fraction (HFpEF) ([facility]) One tablet one morning twice per [...] with preserved ejection fraction (HFpEF) ([facility]) Take 1 Tablet by mouth in the [...] goal of less than 7.0% ([facility]),Type 2 diabetes mellitus with stage 3a chronic kidney disease, with long-term current use of insulin ([facility]) Inject 30 Units under the skin at bedtime. 6 mL 2 07/31/2023 Active BD Pen Needle Short U/F 31G X 8 MMIndications:Type 2 diabetes mellitus with hemoglobin A1c goal of less than 7.0% ([facility]),Type 2 diabetes mellitus with stage 3a chronic kidney disease, with long-term current use of insulin ([facility]) Use with insulin 4 times daily 400 Each 3 07/31/2023 Active Gaviscon 80-14.2 MG Oral Tablet Chewable (Alum Hydroxide-Mag Trisilicate) Take by mouth as needed. 0 Active Nystatin 862078 UNIT/GM External Powder (Nystop)Indications:C andidal intertrigo APPLY TOPICALLY TO AFFECTED AREA 3 TIMES A DAY. APPLY TO AFFECTED AREAS 60 g 1 08/20/2023 Active Atorvastatin Calcium 40 MG Oral Tablet (Lipitor)Indications: Heart failure, systolic, due to idiopathic cardiomyopathy ([facility]),S/P aortic valve replacement,HTN, goal below 140/80,Dyslipidemia, [...] goal of less than 7.0% ([facility]) Use up to 50 units per day in Omnipod. 5 Each 3 09/11/2023 Active Gabapentin 100 MG Oral Capsule (Neurontin)Indication s:Polyneuropathy associated with underlying disease (HCC) Take 1 Capsule by mouth in the morning and 1 Capsule at noon and 1 Capsule before bedtime. 90 Capsule 0 09/12/2023 Active documented as of this encounter (statuses as of 09/12/2023) Active Problems Problem Noted Date Diagnosed Date [...] eye 09/28/2020 Coronary artery disease invo lving pilot point coronary artery of pilot point heart without angina pectoris 12/16/2019 Last Assessment [...] as of this encounter (statuses as of 09/12/2023) Resolved Problems Problem Noted Date Diagnosed Date [...] 12/21/2016 Diabetes mellitus 01/05/2014 12/21/2016 LEYVA RESEARCH OTHER*[id number] 01/05/2014 12/21/2016 Axillary pain 11/03/2013 12/21/2016 Obesity, [...] cath 09/201008/26/2011 12/21/2016 FOLLOWING SURGERY, UNSPECIFI ED ([facility] 08/25/2011) 08/26/2011 12/21/2016 ADVANCE DIRECTIVE INFORMATION 04/17/2011 12/21/2016 Overview: Yes, Patient instructed to provide copy of advance directive for provider to review and to be scanned into Electronic Medical Record ADVANCE DIRECTIVE INFORMATION 03/01/2011 12/21/2016 Overview: Yes, Patient instructed to provide copy of advance directive for provider to review and to be scanned into Electronic Medical Record [facility] V710 Clinical Trial*[id number] 12/22/2010 04/14/2011 S/P aortic valve replacement 12/01/2010 08/26/2011 S/P AORTIC VALVE REPLACEMENT - #25 pericardial Mc valve 11/01/2010 06/28/2018 Overview: Aortic valve replacement with #25 pericardial Mc valve, model [id number], serial number [id number] (Dr. Meeks) [facility] V710 Clinical Trial*[id number] 10/18/2010 11/21/2010 Body mass index (BMI) of [...] as of this encounter (statuses as of 09/12/2023) Immunizations Name Administration Dates Next Due COVID-19 mRNA, LNP-s, No Pre serve, 2-Dose Series (Moderna) 10/25/2021,02/16/2021,01/18/2021 HEP A - Hepatitis A (Adult > 18 yrs) 06/07/2018, 12/05/2017 Hepatitis B, 20+ yrs 06/07/2018,01/08/20 18,12/05/2017,06/15,10/27/2013,09/12/2013 Pneumococcal Conjugate Vacci ne, 20-valent ([id number]) 06/22/2023 Pneumococcal Polysaccharide PPV23 (Pneumovax) 01/02/2008 Seasonal [...] as of this encounter Progress Notes * Angeline Puentes, DO - 09/12/2023 1:02 PM EST Subjective: Jovita Rose is a 62 year old female. Chief Complaint Patient presents with Acute There are no exam notes on file for this visit. HPI: This is a 62 year old female with PMHx as below presents for televideo phone visit. After connecting through televideo, patient was verified with two unique identifiers. Patient (or authorized legal underwriting account representative) was then informed that this was a Telemedicine visit and that the exam was being conducted confidentially over secure lines. My office door was closed. No one else was in the room with me. Patient acknowledged consent and understanding of privacy and security of the Telemedicine visit, and gave permission to have a telemedicine presenter stay in the room in order toassist with the history and to conduct the exam as needed. I informed the patient that I have reviewed their record in [facility] and presented the opportunity for them to ask any questions regarding the visit today. The patient agreed to participate. Patient location: HOME. I was in a hospital or clinic location. After connecting through televideo,patient was verified with two unique identifiers. Patient (or authorized legal underwriting account representative) was then informed that this was a Telemedicine visit and being conducted confidentially over secure lines. Methods to assure confidentiality were taken. Patient acknowledged consent and understanding of pr ivacy and security of the Telemedicine visit. The patient agreed to participate. Neuropathy has "Come back" - chart does not indicate pt has neuropathy. Pt states that she was dx in [place] and then PCP "agreed" 2013. States has neuropathy in feet and hands- pain numbness/tingling Pos DM - recent A1c 6.3 Painful Used to take lyrica in the past did not help, would like to try gabapentin. Will start and PCP to follow up with EMG and physical exams. B12 ordered Also with pain in middle of the back - today better Hx of thrombocytopenia - based on labs Plan: as noted above Health Maintenance Due Topic Date Due HIV Screening Never done Depression, Most Recent Score >= 10 (will fire each visit until score < 10) 12/18/2020 Diabetic Foot Exam 2021 Diabetic Eye Exam 10/06/2022 COVID-19 Vaccine ( season) 2023 B-12 09/08/2023 Patient Active Problem List Diagnosis Code Dyslipidemia E78.5 Type 2 diabetes mellitus with hemoglobin A1c goal of less than 7.0% ([facility]) E11.9 DANYELLE on CPAP G47.33 Acquired hypothyroidism [...] Z95.5 Schizoaffective disorder, bipolar type ([facility]) F25.0 Medical marijuana use Z79.899 Coronary artery disease involving pilot point coronary artery of pilot point heart without angina pectoris I25.10 Cystoid macular edema of right eye H35.351 Chronic kidney disease, stage 3a N18.31 Type 2 diabetes mellitus with stage 3a chronic kidney disease, with long-term current use of insulin ([facility]) E11.22, N18.31, Z79.4 Type 2 diabetes mellitus with both eyes affected by mild nonproliferative retinopathy and macular edema, with long-term current use of insulin ([facility]) E11.3213, Z79.4 Type 2 diabetes mellitus with diabetic peripheral angiopathy without gangrene ([facility]) E11.51 Obesity, Class I, BMI 30.0-34.9 (see actual BMI) E66.9 Thrombocytopenia ([facility]) D69.6 Current Outpatient Medications Medication Sig Dispense Refill Gabapentin 100 MG Oral Capsule (Neurontin) Take 1 Capsule by mouth in the morning and 1 Capsule at noon and 1 Capsule before bedtime. 90 Capsule 0 aspirin enteric coated 81 MG TBEC Take [...] times a day E11.9 1 Kit 0 OneTouch DelBrandtone Lancets 33G TEST 4 TIMES DAILY DIRECTED, E11.9 400 Each 3 Melatonin 10 MG Oral Capsule Take 1 Capsule by mouth at bedtime. Ammonium Lactate 12 % External Lotion (Lac-Hydrin) Apply to both feet once daily. 400 g 3 Magnesium Oxide 400 (240 Mg) MG Oral [...] 90 days E 11.9 1 Each 3 Ozempic (2 MG/DOSE) 8 MG/3ML Subcutaneous Solution Pen-injector (Semaglutide (2 MG/DOSE)) Inject 0.75 mL under the skin once a week. 9 mL 3 Fluticasone Propionate 50 MCG/ACT Nasal Suspension (Flonase) Administer 2 Sprays into each nostril in the morning. 16 g 3 metOLazone 2.5 MG Oral Tablet (Zaroxolyn) One tablet one morning twice per week (Sunday and Sunday), 30 minutes prior to torsemide dose (Patient not taking: Reported on 08/03/2023) 24 Tablet 3 Clopidogrel Bisulfate 75 MG Oral Tablet [...] 1 Tablet before bedtime. 180 Tablet 3 Venelex External Ointment Apply topically to affected area 2 times a day. (Patient not taking: Reported on 08/03/2023) NovoLOG FlexPen 100 UNIT/ML Subcutaneous Solution Pen-injector [...] Hydroxide-Mag Trisilicate) Take by mouth as needed. Nystatin 455034 UNIT/GM External Powder (Nystop) APPLY TOPICALLY TO AFFECTED AREA 3 TIMES A DAY. APPLY TO AFFECTED AREAS 60 g 1 Atorvastatin Calcium 40 MG Oral Tablet (Lipitor) TAKE 1 TABLET BY MOUTH DAILY. TO PREVENT HEART ATTACK/STROKE, PROTECT KIDNEY, AND CHOLESTEROL 90 Tablet 1 Meclizine HCl 25 MG Oral Tablet (Antivert) TAKE 2 TABLETS BY MOUTH TWICE A DAY 360 Tablet 3 Aquaphor External Ointment Apply topically to affected area as needed for Dry Skin. Apply to face 420 g 0 Metoprolol Tartrate 25 MG Oral Tablet (Lopressor) Take 1 Tablet by mouth in the morning and 1 Tablet before bedtime. 60 Tablet 2 metFORMIN HCl 1000 MG Oral Tablet (Glucophage) Take 1 Tablet by mouth 2 times a day with morning and evening meals. 180 Tablet 3 Torsemide 10 MG Oral Tablet (Demadex) Take 1 Tablet by mouth in the morning. Insulin Aspart 100 UNIT/ML Injection Solution (NovoLOG) Use up to 50 units per day in Omnod. 5 Each 3 No current facility-administered medications for this visit. Past Medical History: Diagnosis Date Aortic valve stenosis Cataract, senile DM type 2, not at goal ([facility]) Diabetes Type II, Uncontrolled Dyslipidemia, goal LDL below 70 2003 ANIVAL (generalized anxiety disorder) 12/05/2017 Heart failure, diastolic, due to HTN ([facility]) 07/23/2013 History of breast cancer 10/01/2014 History of colon cancer 10/01/2014 HTN, goal below 130/80 Hypothyroidism Incisional hernia 10/10/2019 MAL JOSE BREAST UP-OUTER - pT2 pN2 M0, stage IIIa 02/13/2008 Malignant neoplasm of female breast ([facility]) Medical marijuana use 12/09/2019 Miosis Motion sickness LEYVA (nonalcoholic steatohepatitis) 06/28/2018 Obesity, Class I, BMI 30.0-34.9 (see actual BMI) 07/31/2023 Obstructive sleep apnea 10/31/2010 DANYELLE (obstructive sleep apnea) Persistent insomnia 09/04/2017 Pneumoperitoneum 06/06/2023 Recurrent major depressive disorder, in full remission ([facility]) 12/05/2017 S/P AORTIC VALVE REPLACEMENT - #25 pericardial Mc valve 11/01/2010 Type 2 diabetes mellitus with diabetic neuropathy, with long-term current use of insulin ([facility]) 08/23/2018 Ventral hernia without obstruction or gangrene 12/21/2016 Past Surgical History: Procedure Laterality Date CARPAL TUNNEL SURGERY Left 12/09/2014 NEUROPLASTY MEDIAN NERVE AT CARPAL TUNNEL performed by Levi Peralta MD at [facility] CARPAL TUNNEL SURGERY Right 02/23/2015 NEUROPLASTY MEDIAN NERVE AT CARPAL TUNNEL performed by Levi Peralta MD at [facility] DELIVERY x4 COLONOSCOPY, DIAGNOSTIC (RECTUM) 05/23/2011 COLONOSCOPY FLEXIBLE PROXIMAL DIAGNOSTIC performed by BELINDA JAMES at ENDOSCOPY [facility] COLONOSCOPY, DIAGNOSTIC (RECTUM) 12/08/2013 COLONOSCOPY FLEXIBLE PROXIMAL DIAGNOSTIC performed by Gigi Haro MD at [facility] COLONOSCOPY, DIAGNOSTIC (RECTUM) 07/02/2018 poor prep, repeat / [facility] COLONOSCOPY, DIAGNOSTIC (RECTUM) 07/03/2018 adenomatous polyps, diverticulosis, repeat 3 yrs/[facility] COLONOSCOPY, DIAGNOSTIC (RECTUM) 09/13/2022 benign adenomatous polyps, diverticulosis, repeat 3 yrs / COLONOSCOPY FLEXIBLE PROXIMAL DIAGNOSTIC performed by Rajinder Wheeler MD at ENDOSCOPY [facility] CORONARY ANGIOGRAPHY W/RIGHT+LEFT CATH 10/10/2010 CORONARY ANGIOGRAPHY W/RIGHT+LEFT CATH performed by MRANI SULLIVAN at CARDIAC LABS [facility] CV ECHO, ALMA INTRAOPERATIVE N/A 06/21/2023 ECHOCARDIOGRAPHY, TRANSESOPHAGEAL; INCLUDING PROBE PLACEMENT, IMAGE ACQUISITION, INTERPRETATION ADALBERTO performed by [facility] [place] [facility] EGD, FLEXIBLE, DIAGNOSTIC 07/02/2018 erosive gastropathy, repeat 2 yrs / [facility] EGD, FLEXIBLE, DIAGNOSTIC 04/15/2021 normal, repeat 3 yrs / ESOPHAGOGASTRODUODENOSCOPY (EGD), FLEXIBLE, TRANSORAL, DIAGNOSTIC performed by Rajinder Wheeler MD at ENDOSCOPY [facility] EGD, FLEXIBLE, DIAGNOSTIC 06/08/2023 ESOPHAGOGASTRODUODENOSCOPY (EGD), FLEXIBLE, TRANSORAL, DIAGNOSTIC performed by Sushant Alicea MD at [place] [facility] ESOPHAGOSCOPY, FLEXIBLE, DIAGNOSTIC N/A 06/06/2023 ESOPHAGOSCOPY DIAGNOSTIC performed by Sushant Alicea MD at [place] [facility] EXC BREAST LESION RADMARK 01/30/2008 EXCISION OF BREAST LESION RADIOLOGICAL MARKER performed by PAUL PEDRO at OR [facility] EXPLORATION OF ABDOMEN N/A 06/06/2023 EXPLORATORY LAPAROTOMY performed by Sushant Alicea MD at [place] [facility] EXPLORATION OF ABDOMEN N/A 06/08/2023 EXPLORATORY LAPAROTOMY performed by Sushant Alicea MD at [place] [facility] FOOT/TOE SURGERY NEC Foot/Toes Surgery Proc Unlisted HYSTEROSCOPY W/BIOPSY AND/OR POLYPECTOMY W/WO D&C 01/30/2008 HYSTEROSCOPY WITH BIOPSY performed by ABIEL CHOI JR at OR [facility] HYSTEROSCOPY W/BIOPSY AND/OR POLYPECTOMY W/WO D&C 06/21/2011 HYSTEROSCOPY WITH BIOPSY AND/OR POLYPECTOMY performed by ABIEL CHOI JR at OR [facility] IDENTIFY SENTINEL NODE, RADIOACTIVE TRACER 02/24/2008 INJECTION PROCEDURE FOR IDENTIFICATION SENTINEL NODE performed by PAUL PEDRO at OR [facility] IMPLANT MESH W/ ABD HERNIA REPR/DEBRIDE N/A 10/10/2019 IMPLANTATION MESH WITH INCISIONAL/VENTRAL HERNIA performed by Gigi Hendrickson MD at [place] [facility] INFORMATION Left *MRI* 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 MASTECTOMY, SIMPLE, COMPLETE 02/24/2008 MASTECTOMY SIMPLE COMPLETE performed by PAUL PEDRO at OR [facility] NEG PRESSURE WOUND THERAPY DME >50 SQ CM N/A 06/06/2023 NEGATIVE PRESSURE WOUND THERAPY GREATER THAN 50SQ CM performed by Sushant Alicea MD at [place] [facility] OTHER ACT 112 Signed, 12/07/2020 OTHER Avastin OD consent signed, 02/28/2021-02/28/2022 PARTIAL COLECTOMY W/ANASTOMOSIS 2004 Colectomy Partial REMOVAL OF APPENDIX Appendectomy REMOVAL OF BREAST IMPLANT 07/11/2010 REMOVAL OF INTACT MAMMARY IMPLANT performed by DEON BARBOSA II at OR [facility] REMOVAL OF OVARY/OVIDUCT(S) 08/25/2011 SALPINGO OOPHORECTOMY performed by ABIEL CHOI JR at OR [facility] REMOVE ARMPIT LYMPH NODES, COMPLETE 02/24/2008 AXILLARY LYMPHADENECTOMY COMPLETE performed by PAUL PEDRO at OR [facility] REMOVE CATARACT, INSERT LENS PROSTH Right 09/15/2020 EXTRACAPSULAR CATARACT REMOVAL WITH INTRAOCULAR LENS performed by Cece Cook MD at OR [facility] REPAIR INITIAL INCISIONAL OR VENTRAL HERNIA; REDUCIBLE N/A 10/10/2019 REPAIR INITIAL INCISIONAL /VENTRAL HERNIA REDUCIBLE performed by Gigi Hendrickson MD at [place] [facility] REPLACE AORTIC VALVE, PERCUTANEOUS FEMORAL Bilateral 11/06/2017 REPLACE AORTIC VALVE, PERCUTANEOUS FEMORAL performed by Dawood Laird MD at [facility] REPLACE AORTIC VALVE, PERCUTANEOUS FEMORAL 11/06/2017 REPLACE AORTIC VALVE, PERCUTANEOUS FEMORAL performed by Belinda Liang MD at [facility] REPLACEMENT AORTIC VALVE, BYPASS WITH PROSTHETIC VALVE 11/01/2010 REPLACEMENT AORTIC VALVE performed by RITA MEEKS at OR [facility] REVISION OF ULNAR NERVE AT ELBOW Right 02/23/2015 NEUROPLASTY AND OR TRANSPOSITION ULNAR NERVE ELBOW performed by Levi Peralta MD at OR [facility] SIGMOIDOSCOPY, DIAGNOSTIC N/A 06/08/2023 SIGMOIDOSCOPY FLEXIBLE DIAGNOSTIC performed by Sushant Alicea MD at [place] [facility] TOTAL ABD HYSTERECTOMY W/WO REMOVAL OF TUBE(S) 08/25/2011 TOTAL ABDOMINAL HYSTERECTOMY WITH OR WITHOUT TUBES AND OVARIES performed by ABIEL CHOI JR Review of patient's allergies indicates: Allergen Reactions Adhesive Tape Can tolerate band-aids Glycerin Other (Please comment) Topical agents with glycein-burning & itching Lactose Dairy - gas Lisinopril Cough Monosodium Glutamate Edema Other Hands and feet Pcn [Penicillins] Rash Family History Problem Relation Age of Onset Heart Disorder Father from [place] at age 51 Heart Disorder Mother CAD - at age 56 during second CABG Stroke Sister Heart Disorder Brother Older brother - CABG X 4 at age 65. 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 [employer] Employer: [employer] 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 Employer: [employer] Tobacco Use Smoking status: Never Smokeless tobacco: Never Vaping Use Vaping Use: Never used Substance and Sexual Activity Alcohol use: No Drug use: No Sexual activity: Not Currently Other Topics Concern Service Not Asked Blood Transfusions Not Asked Caffeine Concern No Occupational Exposure Not Asked Hobby Hazards Not Asked Sleep Concern Not Asked Stress Concern Not Asked Weight Concern Not Asked Special Diet Not Asked Back Care Not Asked Exercise Not Asked Bike Helmet Not Asked Seat Belt Not Asked Self-Exams Not Asked Social History Narrative Not on file Social Determinants of Health Financial Resource Strain: Not on file Food Insecurity: No Food Insecurity (07/26/2023) Hunger Vital Sign Worried About Running Out of Food in the Last Year: Never true Ran Out of Food in the Last Year: Never true Transportation Needs: Not on file Physical Activity: Not on file Stress: Not on file Social Connections: Not on file Intimate Partner Violence: Not on file Housing Stability: Not on file Review of Systems: As per HPI all other ROS negative. Wt Readings from Last 3 Encounters: 09/06/23 70.3 kg (155 lb) 07/31/23 74.4 kg (164 lb) 07/28/23 75.3 kg (166 lb) Results for orders placed or performed in visit on 08/03/23 CHEMISTRY-OUTSIDE Result Value Ref Range Not all results display below - see scan for full detail CREATININE-OUTSIDE LAB 0.80 0.6 - 1.2 MG/DL EGFR-OUTSIDE LAB 77.9 ML/MIN POTASSIUM-OUTSIDE LAB 3.0 (A) 3.5 - 5.1 MMOL/L GLUCOSE-OUTSIDE LAB 296 (A) 70 - 99 MG/DL HOURS FASTING TRIGLYCERIDES-OUTSIDE LAB CHOLESTEROL-OUTSIDE LAB HDL-OUTSIDE LAB CHOL/HDL RATIO-OUTSIDE LAB LDL (CALCULATED)-OUTSIDE LAB LDL (DIRECT MEASURE)-OUTSIDE LAB HEMOGLOBIN, V5B-[id number] LAB PHOSPHORUS-OUTSIDE LAB PTH-OUTSIDE LAB MICROALBUMIN RATIO-OUTSIDE LAB PROTEIN, UA-OUTSIDE LAB HEMOGLOBIN-OUTSIDE LAB *Note: Due to a large number of results and/or encounters for the requested time period, some results have not been displayed. A complete set of results can be found in Results Review. OBJECTIVE: Physical Exam: Not done Polyneuropathy associated with underlying disease (HCC) (Primary) - EMG - Gabapentin 100 MG Oral Capsule (Neurontin); Take 1 Capsule by mouth in the morning and 1 Capsule at noon and 1 Capsule before bedtime. - VITAMIN B12; Future; Expected date: 09/12/2023 Thrombocytopenia (HCC) Angeline Puentes DO documented in this encounter Plan of Treatment Upcoming Encounters Date Type Department Care Team (Late st Contact Info) Description 09/14/2023 2:00 PM EST Office Visit Pharmacy, [facility] [address] [place] [address] Pharmacist1, [facility] [address] [place] [address] 10/12/2023 10:00 AM EST Home Visit ising at [place], [facility] [address] [address] Jaycee Sorto RN [address] [place] [address] 10/15/2023 11:00 AM EST Office Visit Cardiology, [facility] [address] [place] [address] Feli Teague, [facility] [address] [place] [address] 02/04/2024 10:20 AM EDT Office Visit Family Practice [facility] [address] [place] [address] Deon Rausch MD [address] [place] [address] Scheduled Orders Name Type Priority Associated Diagnoses Orde r Schedule VITAMIN B12 Lab Routine Polyneuropathy associated with underlying disease (HCC) Expected: 09/12/2023 (Approximate), Expires: 09/11/2024 Scheduled Procedures Name Priority Associated Diagnoses Date/Ti me COLONOSCOPY FLEXIBLE PROXIMAL DIAGNOSTIC Recall History of [...] 2020, 0 12/05/2018, 12/05/2017, Additional history exists Diabetic Eye Exam 10/06/2022 10/06/2021, , 10/06/2021, Additional history exists COVID-19 Vaccine ( season) 2023 10/25/2021, 02/16/2021, 01/18/2021 B-12 09/08/2023 09/08/2022, 11/23, 08/30/2018, Additional history exists HbA1c 01/29/2024 07/31/2023, 03/24, 02/13/2023, Additional history exists GFR 01/31/2024 08/02/2023, 1103/2023, 06/28/2023, Additional history exists Albumin/Creatinine Ratio 03/09/2024 023, 12/22/2022, 05/05/2021, Additional history exists TSH 06/06/2024 06/06/2023, 01/23, 12/22/2022, Additional history exists CKD PHOS USE SMARTSET 54856 06/18/202405/26, 06/16/2023, 06/15/2023, Additional history exists CKD HGB USE SMARTSET 61512 07/31/202407/31, 07/31/2023, 06/29/2023, Additional history exists COLONOSCOPY-EVERY 3 YRS AGES [...] this encounter Medical Devices Implanted Type Area Playground Monitor Device Identifier Shelf Expiration Date Model / Serial / Lot Cath Roselia Single Lumen - [id number] Implanted:Qty : 1 on 03/12/2008 at OR [facility] Left: [facility] *DO NOT USE* 07/25/2012 21-4053-24 / / [id number] Valve Tarsha Aortic [id number] - [id number] Implanted:Qty : 1 on 11/01/2010 at OR [facility] N/A: Heart [facility] [employer] DANIEL 05/20/2012 [id number] / / [id number] Mesh Soft [id number] - [id number] Implanted:Qty : 1 on 10/10/2019 [place]igi Hend[place] [facility] Abdomen CR BARD : DAVOL [id number] 05/21/2024 [id number] / / [id number] Lens 22.5 Sn60wf - [id number] - [id number] Implanted:Qty : 1 on 09/15/2020 by Cece Roland MD at [facility] Right: Eye IVA : SURGICAL [id number] 05/13/2025 SN60 WF.225 / [id number] / [id number] documented as of this encounter Visit Diagnoses Diagnosis Polyneuropathy associated with underlying disease (HCC)- Primary Thrombocytopenia (HCC) Thrombocytopenia, unspecified documented in this encounter Advance Directives Latest [...] the patient have Health Care Power of Block Breaker? No Full Code 10/10/2019 8:40 AM 10/10/2019 [...] patient or by statute hierarchy) Care Teams Boat Worker Relationship Specialty Start Date End Date Deon Rausch MD [address] [place] [address] PCP - General Family Medicine 02/12/20 documented as of this encounter
--- OUTSIDE RECORDS SUMMARY | 2023-10-27 12:13 | External Medical Summary | Summary of Care ---
Author Name Unknown Organization [facility] Address [address] [place] [address] Phone [phone] Care Team Providers Care Dog Races Manager Name Role Phone Deon Rausch MD Primary Care Provider [phone] Reason for Visit * Reason Comments Acute Encounter Details Date Type Department Care Team (Latest Contact Info) Description 09/12/2023 1:00 PM [facility] [address] [place] [address] Angeline Puentes, [address] [facility] [id number] Polyneuropathy associated with underlying disease ([facility])*; Thrombocytopenia ([facility]) Allergies Active Allergy Reactions Criticality Noted [...] hypoglycemia E11.9 100 Tab 3 07/06/2021 Active [employer] Verio w/Device Kit Use up to 4 times a day E11.9 1 Kit 0 02/10/2022 Active [employer] Delica Lancets 33G TEST 4 TIMES [...] mononeuropathy, with long-term current use of insulin ([facility]),Type 2 diabetes mellitus with both eyes affected by mild nonproliferative retinopathy and macular edema, with long-term current use of insulin ([facility]),Type 2 diabetes mellitus with stage 3a chronic kidney disease, with long-term current use of insulin ([facility]) Inject 0.75 mL under the skin once a week. 9 mL 3 02/22/2023 Active Fluticasone Propionate 50 MCG/ACT Nasal Suspension (Flonase)Indications: Dizziness Administer 2 Sprays into each nostril in the morning. 16 g 3 03/01/2023 Active metOLazone 2.5 MG Oral Tablet (Zaroxolyn)Indication s:Acute on chronic heart failure with preserved ejection fraction (HFpEF) ([facility]) One tablet one morning twice [...] heart failure with preserved ejection fraction (HFpEF) ([facility]) Take 1 Tablet by mouth [...] hemoglobin A1c goal of less than 7.0% ([facility]),Type 2 diabetes mellitus with stage 3a chronic kidney disease, with long-term current use of insulin ([facility]) Inject 30 Units under the skin at bedtime. 6 mL 2 07/31/2023 Active BD Pen Needle Short U/F 31G X 8 MMIndications:Type 2 diabetes mellitus with hemoglobin A1c goal of less than 7.0% ([facility]),Type 2 diabetes mellitus with stage 3a chronic kidney disease, with long-term current use of insulin ([facility]) Use with insulin 4 times daily 400 Each 3 07/31/2023 Active Gaviscon 80-14.2 MG Oral Tablet Chewable (Alum Hydroxide-Mag Trisilicate) Take by mouth as needed. 0 Active Nystatin 316451 UNIT/GM External Powder (Nystop)Indications:C andidal intertrigo APPLY TOPICALLY TO AFFECTED AREA 3 TIMES A DAY. APPLY TO AFFECTED AREAS 60 g 1 08/20/2023 Active Atorvastatin Calcium 40 MG Oral Tablet (Lipitor)Indications: Heart failure, systolic, due to idiopathic cardiomyopathy ([facility]),S/P aortic valve replacement,HTN, goal below [...] hemoglobin A1c goal of less than 7.0% ([facility]) Use up to 50 units [...] eye 09/28/2020 Coronary artery disease invo lving campo coronary artery of campo heart without angina pectoris 12/16/2019 Last Assessment [...] 12/21/2016 Diabetes mellitus 01/05/2014 12/21/2016 LEYVA RESEARCH OTHER*[id number] 01/05/2014 12/21/2016 Axillary pain 11/03/2013 12/21/2016 Obesity, [...] cath 09/201008/26/2011 12/21/2016 FOLLOWING SURGERY, UNSPECIFI ED ([facility] 08/25/2011) 08/26/2011 12/21/2016 ADVANCE DIRECTIVE INFORMATION 04/17/2011 12/21/2016 Overview: Yes, Patient instructed to provide copy of advance directive for provider to review and to be scanned into Electronic Medical Record ADVANCE DIRECTIVE INFORMATION 03/01/2011 12/21/2016 Overview: Yes, Patient instructed to provide copy of advance directive for provider to review and to be scanned into Electronic Medical Record [facility] V710 Clinical Trial*[id number] 12/22/2010 04/14/2011 S/P aortic valve replacement 12/01/2010 08/26/2011 S/P AORTIC VALVE REPLACEMENT - #25 pericardial Mc valve 11/01/2010 06/28/2018 Overview: Aortic valve replacement with #25 pericardial Mc valve, model 2800TFX, serial number [id number] (Dr. Meeks) [facility] V710 Clinical Trial*[id number] 10/18/2010 11/21/2010 Body mass index (BMI) of [...] 06/07/2018,01/08/20 18,12/05/2017,06/15,10/27/2013,09/12/2013 Pneumococcal Conjugate Vacci ne, 20-valent ([id number]) 06/22/2023 Pneumococcal Polysaccharide PPV23 (Pneumovax) 01/02/2008 Seasonal [...] two unique identifiers. Patient (or authorized legal product support sales representative) was then informed that this was [...] that I have reviewed their record in [employer] and presented the opportunity for them to ask any questions regarding the visit today. The patient agreed to participate. Patient location: HOME. I was in a hospital or clinic location. After connecting through televideo,patient was verified with two unique identifiers. Patient (or authorized legal product support sales representative) was then informed that this was a Telemedicine visit and being conducted confidentially over secure lines. Methods to assure confidentiality were taken. Patient acknowledged consent and understanding of pr ivacy and security of the Telemedicine visit. The patient agreed to participate. Neuropathy has "Come back" - chart does not indicate pt has neuropathy. Pt states that she was dx in [place] and then PCP "agreed" 2013. States has [...] hemoglobin A1c goal of less than 7.0% ([facility]) E11.9 DANYELLE on CPAP G47.33 Acquired hypothyroidism [...] stent placement Z95.5 Schizoaffective disorder, bipolar type ([facility]) F25.0 Medical marijuana use Z79.899 Coronary artery disease involving campo coronary artery of campo heart without angina pectoris I25.10 Cystoid macular edema of right eye H35.351 Chronic kidney disease, stage 3a N18.31 Type 2 diabetes mellitus with stage 3a chronic kidney disease, with long-term current use of insulin ([facility]) E11.22, N18.31, Z79.4 Type 2 diabetes mellitus with both eyes affected by mild nonproliferative retinopathy and macular edema, with long-term current use of insulin ([facility]) E11.3213, Z79.4 Type 2 diabetes mellitus with diabetic peripheral angiopathy without gangrene ([facility]) E11.51 Obesity, Class I, BMI 30.0-34.9 (see actual BMI) E66.9 Thrombocytopenia ([facility]) D69.6 Current Outpatient Medications Medication Sig Dispense [...] a day E11.9 1 Kit 0 OneTouch DelOyster Lancets 33G TEST 4 TIMES DAILY DIRECTED, [...] Trisilicate) Take by mouth as needed. Nystatin 660779 UNIT/GM External Powder (Nystop) APPLY TOPICALLY TO [...] senile DM type 2, not at goal ([facility]) Diabetes Type II, Uncontrolled Dyslipidemia, goal LDL below 70 2003 ANIVAL (generalized anxiety disorder) 12/05/2017 Heart failure, diastolic, due to HTN ([facility]) 07/23/2013 History of breast cancer 10/01/2014 History of colon cancer 10/01/2014 HTN, goal below 130/80 Hypothyroidism Incisional hernia 10/10/2019 MAL JOSE BREAST UP-OUTER - pT2 pN2 M0, stage IIIa 02/13/2008 Malignant neoplasm of female breast ([facility]) Medical marijuana use 12/09/2019 Miosis Motion sickness LEYVA (nonalcoholic steatohepatitis) 06/28/2018 Obesity, Class I, BMI 30.0-34.9 (see actual BMI) 07/31/2023 Obstructive sleep apnea 10/31/2010 DANYELLE (obstructive sleep apnea) Persistent insomnia 09/04/2017 Pneumoperitoneum 06/06/2023 Recurrent major depressive disorder, in full remission ([facility]) 12/05/2017 S/P AORTIC VALVE REPLACEMENT - #25 pericardial Mc valve 11/01/2010 Type 2 diabetes mellitus with diabetic neuropathy, with long-term current use of insulin ([facility]) 08/23/2018 Ventral hernia without obstruction or gangrene 12/21/2016 Past Surgical History: Procedure Laterality Date CARPAL TUNNEL SURGERY Left 12/09/2014 NEUROPLASTY MEDIAN NERVE AT CARPAL TUNNEL performed by Levi Peralta MD at [facility] CARPAL TUNNEL SURGERY Right 02/23/2015 NEUROPLASTY MEDIAN NERVE AT CARPAL TUNNEL performed by Levi Peralta MD at [facility] DELIVERY x4 COLONOSCOPY, DIAGNOSTIC (RECTUM) 05/23/2011 COLONOSCOPY FLEXIBLE PROXIMAL DIAGNOSTIC performed by BELINDA JAMES at ENDOSCOPY [facility] COLONOSCOPY, DIAGNOSTIC (RECTUM) 12/08/2013 COLONOSCOPY FLEXIBLE PROXIMAL DIAGNOSTIC performed by Gigi Haro MD at [facility] COLONOSCOPY, DIAGNOSTIC (RECTUM) 07/02/2018 poor prep, repeat / [facility] COLONOSCOPY, DIAGNOSTIC (RECTUM) 07/03/2018 adenomatous polyps, diverticulosis, repeat 3 yrs/[facility] COLONOSCOPY, DIAGNOSTIC (RECTUM) 09/13/2022 benign adenomatous polyps, diverticulosis, repeat 3 yrs / COLONOSCOPY FLEXIBLE PROXIMAL DIAGNOSTIC performed by Rajinder Wheeler MD at ENDOSCOPY [facility] CORONARY ANGIOGRAPHY W/RIGHT+LEFT CATH 10/10/2010 CORONARY ANGIOGRAPHY W/RIGHT+LEFT CATH performed by MARNI SULLIVAN at CARDIAC LABS [facility] CV ECHO, ALMA INTRAOPERATIVE N/A 06/21/2023 ECHOCARDIOGRAPHY, TRANSESOPHAGEAL; INCLUDING PROBE PLACEMENT, IMAGE ACQUISITION, INTERPRETATION ADALBERTO performed by [facility] [place] [facility] EGD, FLEXIBLE, DIAGNOSTIC 07/02/2018 erosive gastropathy, repeat 2 yrs / [facility] EGD, FLEXIBLE, DIAGNOSTIC 04/15/2021 normal, repeat 3 yrs / ESOPHAGOGASTRODUODENOSCOPY (EGD), FLEXIBLE, TRANSORAL, DIAGNOSTIC performed by Rajinder Wheeler MD at ENDOSCOPY [facility] EGD, FLEXIBLE, DIAGNOSTIC 06/08/2023 ESOPHAGOGASTRODUODENOSCOPY (EGD), FLEXIBLE, TRANSORAL, DIAGNOSTIC performed by Sushant Alicea MD at [place] [facility] ESOPHAGOSCOPY, FLEXIBLE, DIAGNOSTIC N/A 06/06/2023 ESOPHAGOSCOPY DIAGNOSTIC performed by Sushant Alicea MD at [place] [facility] EXC BREAST LESION RADMARK 01/30/2008 EXCISION OF BREAST LESION RADIOLOGICAL MARKER performed by PAUL PEDRO at OR [facility] EXPLORATION OF ABDOMEN N/A 06/06/2023 EXPLORATORY LAPAROTOMY performed by Sushant Alicea MD at [place] [facility] EXPLORATION OF ABDOMEN N/A 06/08/2023 EXPLORATORY LAPAROTOMY performed by Sushant Alicea MD at [place] [facility] FOOT/TOE SURGERY NEC Foot/Toes Surgery Proc Unlisted HYSTEROSCOPY W/BIOPSY AND/OR POLYPECTOMY W/WO D&C 01/30/2008 HYSTEROSCOPY WITH BIOPSY performed by ABIEL CHOI JR at OR [facility] HYSTEROSCOPY W/BIOPSY AND/OR POLYPECTOMY W/WO D&C 06/21/2011 HYSTEROSCOPY WITH BIOPSY AND/OR POLYPECTOMY performed by ABIEL CHOI JR at OR [facility] IDENTIFY SENTINEL NODE, RADIOACTIVE TRACER 02/24/2008 INJECTION PROCEDURE FOR IDENTIFICATION SENTINEL NODE performed by PAUL PEDRO at OR [facility] IMPLANT MESH W/ ABD HERNIA REPR/DEBRIDE N/A 10/10/2019 IMPLANTATION MESH WITH INCISIONAL/VENTRAL HERNIA performed by Gigi Hendrickson MD at [place] [facility] INFORMATION Left *MRI* 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 model#[id number] thru 6216 Contains Magnet INJECTION OF EYE DRUG Right 02/28/2021 # 1 Avastin OD, INJECTION OF EYE DRUG Right 04/12/2021 # 2 Avastin OD, INJECTION OF EYE DRUG Right 05/25/2021 # 3 Avastin OD, INSERT PER EUGENE ACC DEV;5/OLDER 03/12/2008 INSERT PICC WITH PORT 5 YEARS AND OLDER performed by PAUL PEDRO at OR [facility] LAPAROSCOPY DIAGNOSTIC N/A 06/06/2023 LAPAROSCOPY DIAGNOSTIC performed by Sushant Alicea MD at [facility] MASTECTOMY, SIMPLE, COMPLETE 02/24/2008 MASTECTOMY SIMPLE COMPLETE performed by PAUL PEDRO at OR [facility] NEG PRESSURE WOUND THERAPY DME >50 SQ CM N/A 06/06/2023 NEGATIVE PRESSURE WOUND THERAPY GREATER THAN 50SQ CM performed by Sushant Alicea MD at [place] [facility] OTHER ACT 112 Signed, 12/07/2020 OTHER Avastin OD consent signed, 02/28/2021-02/28/2022 PARTIAL COLECTOMY W/ANASTOMOSIS 2004 Colectomy Partial REMOVAL OF APPENDIX Appendectomy REMOVAL OF BREAST IMPLANT 07/11/2010 REMOVAL OF INTACT MAMMARY IMPLANT performed by DEON BARBOSA II at OR [facility] REMOVAL OF OVARY/OVIDUCT(S) 08/25/2011 SALPINGO OOPHORECTOMY performed by ABIEL CHOI JR at OR [facility] REMOVE ARMPIT LYMPH NODES, COMPLETE 02/24/2008 AXILLARY LYMPHADENECTOMY COMPLETE performed by PAUL PEDRO at OR [facility] REMOVE CATARACT, INSERT LENS PROSTH Right 09/15/2020 EXTRACAPSULAR CATARACT REMOVAL WITH INTRAOCULAR LENS performed by Cece Cook MD at [facility] REPAIR INITIAL INCISIONAL OR VENTRAL HERNIA; REDUCIBLE N/A 10/10/2019 REPAIR INITIAL INCISIONAL /VENTRAL HERNIA REDUCIBLE performed by Gigi Hendrickson MD at [place] [facility] REPLACE AORTIC VALVE, PERCUTANEOUS FEMORAL Bilateral 11/06/2017 REPLACE AORTIC VALVE, PERCUTANEOUS FEMORAL performed by Dawood Laird MD at [facility]ARD[facility] REPLACE AORTIC VALVE, PERCUTANEOUS FEMORAL 11/06/2017 REPLACE AORTIC VALVE, PERCUTANEOUS FEMORAL performed by Belinda iLang MD at [facility] REPLACEMENT AORTIC VALVE, BYPASS WITH PROSTHETIC VALVE 11/01/2010 REPLACEMENT AORTIC VALVE performed by RITA MEEKS at OR [facility] REVISION OF ULNAR NERVE AT ELBOW Right 02/23/2015 NEUROPLASTY AND OR TRANSPOSITION ULNAR NERVE ELBOW performed by Levi Peralta MD at OR [facility] SIGMOIDOSCOPY, DIAGNOSTIC N/A 06/08/2023 SIGMOIDOSCOPY FLEXIBLE DIAGNOSTIC performed by Sushant Alicea MD at [place] [facility] TOTAL ABD HYSTERECTOMY W/WO REMOVAL OF TUBE(S) [...] Age of Onset Heart Disorder Father from [place] at age 51 Heart Disorder Mother CAD - at age 56 during second CABG Stroke Sister Heart Disorder Brother Older brother - CABG X 4 at age 65. 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 Employer: [employer] Tobacco Use Smoking status: Never Smokeless tobacco: [...] (CALCULATED)-OUTSIDE LAB LDL (DIRECT MEASURE)-OUTSIDE LAB HEMOGLOBIN, [id number] LAB PHOSPHORUS-OUTSIDE LAB PTH-OUTSIDE LAB MICROALBUMIN RATIO-OUTSIDE [...] Future; Expected date: 09/12/2023 Thrombocytopenia (HCC) Angeline Puetnes DO documented in this encounter Plan of Treatment Upcoming Encounters Date Type Department Care Team (Late st Contact Info) Description 09/14/2023 2:00 PM EST Office Visit Pharmacy, [facility] [address] [place] [address] [address] Pharmacist1, [facility] [address] [place] [address] 10/12/2023 10:00 AM EST Home Visit ising at [place], [facility] [address] [address] Jaycee Sorto RN [address] [place] [address] 10/15/2023 11:00 AM EST Office Visit Cardiology, [facility] [address] [place] [address] Feli Teague, [facility] [address] [place] [address] 02/04/2024 10:20 AM EDT Office Visit Family Practice [facility] [address] [place] [address] Deon Rausch MD [address] [place] [address] Scheduled Orders Name Type Priority Associated Diagnoses [...] Additional history exists CKD PHOS USE SMARTSET 94743 06/18/202405/26, 06/16/2023, 06/15/2023, Additional history exists CKD HGB USE SMARTSET 59625 07/31/202407/31, 07/31/2023, 06/29/2023, Additional history exists COLONOSCOPY-EVERY [...] encounter Medical Devices Implanted Type Area Patient Access Coordinator Device Identifier Shelf Expiration Date Model / Serial / Lot Cath Roselia Single Lumen - [id number] Implanted:Qty : 1 on 03/12/2008 at OR [facility] Left: [facility] *DO NOT USE* 07/25/2012 21-4053-24 / / [id number] Valve Tarsha Aortic [id number] - [id number] Implanted:Qty : 1 on 11/01/2010 at OR [facility] N/A: Heart [facility] [employer] 05/20/2012 2800TFX-25 / / [id number] Mesh Soft [id number] - [id number] Implanted:Qty : 1 on 10/10/2019 by Gigi Hendrickson MD at [place] [facility] N/A: Abdomen CR BARD : DAVOL [id number] 05/21/2024 [id number] / / [id number] Lens 22.5 Sn60wf - [id number] Implanted:Qty : 1 on 09/15/2020 by Cece Roland MD at [facility] Right: Eye IVA : SURGICAL [id number] 05/13/2025 SN60 WF.225 / [id number] / [id number] documented as of this encounter Visit [...] the patient have Health Care Power of Animation Artist? No Full Code 10/10/2019 8:40 AM [...] patient or by statute hierarchy) Care Teams Dog Races Manager Relationship Specialty Start Date End Date Deon Rausch MD [address] [place] [address] PCP - General Family Medicine 02/12/20 documented as of this encounter
--- OUTSIDE RECORDS SUMMARY | 2023-10-27 12:13 | External Medical Summary | Summary of Care ---
Author Name Unknown Organization [facility] Address [address] [place] [address] Phone [phone] Care Team Providers Care Radio Repairer Domestic Name Role Phone Gregory Rausch MD Primary Care Provider [phone] Encounter Details Date Type Department Care Team (Late st Contact Info) Description 09/13/2023 Telephone Ophthalmology, [facility] [address] [facility] [place] [address] [address], [place] [address] Allergies Active Allergy Reactions Criticality Noted Date Comments Adhesive Tape 07/02/2017 Can tolerate band-aids Glycerin Other (Please comment) 03/12/2008 Topical agents with glycein-burning & itching Lactose 12/09/2014 Dairy - gas Lisinopril Cough 01/21/2010 Monosodium Glutamate Edema Other 03/12/2008 Hands and feet Penicillins Rash 11/14/2007 documented as of this encounter (statuses as of 09/13/2023) Medications Medication Sig Dispensed Refills Start Date [...] hypoglycemia E11.9 100 Tab 3 07/06/2021 Active MyTradeTouch Verio w/Device Kit Use up to 4 times a day E11.9 1 Kit 0 02/10/2022 Active MyTradeTouch Delica Lancets 33G TEST 4 TIMES DAILY [...] insulin ([facility]) Inject 0.75 mL under the skin [...] fraction (HFpEF) ([facility]) Take 1 Tablet by mouth in [...] by mouth as needed. 0 Active Nystatin 173079 UNIT/GM External Powder (Nystop)Indications:C andidal intertrigo APPLY [...] Capsule (Neurontin)Indication s:Polyneuropathy associated with underlying disease ([facility]) Take 1 Capsule by mouth in the morning and 1 Capsule at noon and 1 Capsule before bedtime. 90 Capsule 0 09/12/2023 Active documented as of this encounter (statuses as of 09/13/2023) Active Problems Problem Noted Date Diagnosed Date [...] eye 09/28/2020 Coronary artery disease invo lving [place] coronary artery of [place] heart without angina pectoris 12/16/2019 Last [...] as of this encounter (statuses as of 09/13/2023) Resolved Problems Problem Noted Date Diagnosed Date [...] 12/21/2016 Diabetes mellitus 01/05/2014 12/21/2016 LEYVA RESEARCH OTHER*[id number] 01/05/2014 12/21/2016 Axillary pain 11/03/2013 12/21/2016 Obesity, [...] 09/201008/26/2011 12/21/2016 FOLLOWING SURGERY, UNSPECIFI ED ([facility] BSO 08/25/2011) 08/26/2011 12/21/2016 ADVANCE DIRECTIVE INFORMATION 04/17/2011 12/21/2016 Overview: Yes, Patient instructed to provide copy of advance directive for provider to review and to be scanned into Electronic Medical Record ADVANCE DIRECTIVE INFORMATION 03/01/2011 12/21/2016 Overview: Yes, Patient instructed to provide copy of advance directive for provider to review and to be scanned into Electronic Medical Record [facility] V710 Clinical Trial*[id number] 12/22/2010 04/14/2011 S/P aortic valve replacement 12/01/2010 08/26/2011 S/P AORTIC VALVE REPLACEMENT - #25 pericardial Mc valve 11/01/2010 06/28/2018 Overview: Aortic valve replacement with #25 pericardial Mc valve, model 2800TFX, serial number [id number] (Dr. Walker) [facility] V710 Clinical Trial*[id number] 10/18/2010 11/21/2010 Body mass index (BMI) of [...] as of this encounter (statuses as of 09/13/2023) Immunizations Name Administration Dates Next Due COVID-19 mRNA, LNP-s, No Pre serve, 2-Dose Series (Moderna) 10/25/2021,02/16/2021,01/18/2021 HEP A - Hepatitis A (Adult > 18 yrs) 06/07/2018, 12/05/2017 Hepatitis B, 20+ yrs 06/07/2018,01/08/20 18,12/05/2017,06/15,10/27/2013,09/12/2013 Pneumococcal Conjugate Vacci ne, 20-valent ([id number]) 06/22/2023 Pneumococcal Polysaccharide PPV23 (Pneumovax) 01/02/2008 Seasonal [...] encounter Miscellaneous Notes * Telephone Encounter - Ramsey Burnett DO - 09/13/2023 4:37 PM EST Needs IOL/yajaira: Yes, repeat, prior to surgery, I do not need to see patient same day as surgery Needs surgery scheduled: Complex Left eye only 3. Anesthesia: Monitored Local Anesthesia with Sedation 4. [facility] 5. Time needed for IOL/yajaira discussion: done 6. Please schedule H&P w/ PCP Difficulty = 1 documented in this encounter Plan of Treatment Upcoming Encounters Date Type Department Care Team (Latest Contact Info) Description 09/14/2023 2:00 PM EST Office Visit Pharmacy, [facility] [address] [place] [address] [address] Pharmacist1, [facility] [address] [place] [address] Type 2 diabetes mellitus with stage 3a chronic kidney disease, with long-term current use of insulin ([facility])*; Type 2 diabetes mellitus with hemoglobin A1c goal of less than 7.0% ([facility]) 09/19/2023 1:40 PM EST Pharmacy Pharmacy, [facility] [address] [address] Pharmacist1, [facility] [address] [place] [address] 09/26/2023 11:00 AM EST NeuroDiagnostic Study Neurophysiology [facility] [address] [place] [address] [address] Thomas Medina, DO [address] [place] [address] 09/26/2023 12:00 PM EST Nurse Only Ophthalmology, [facility] [address] [facility] [place] [address] Stephen [facility] [place] [place] [address] 10/12/2023 10:00 AM EST [facility] Visit [facility] [address] [facility] [place] [address] Jaycee Sorto RN 132 [facility] [place] [address] 10/15/2023 11:00 AM EST Office Visit Cardiology, [facility] [address] [facility] [place] [address] Feli Teague PA-C [address] [facility] [place] [address] 11/21/2023 9:20 AM EST Office Visit Family Practice [facility] [address] [facility] [place] [address] Gregory Rausch MD 132 [facility] [place] [address] 12/06/2023 8:45 AM EDT Office Visit Ophthalmology, [facility] [address] [facility] [place] [address] Ramsey Burnett, DO [address] [facility] [place] [address] 12/13/2023 2:15 PM EDT Office Visit Ophthalmology, [facility] [address] [facility] [place] [address] Ramsey Burnett, DO [address] [facility] [place] [address] 01/10/2024 2:00 PM EDT Office Visit Ophthalmology, [facility] [address] [place] [address] Ramsey Burnett, DO [address] [facility] [place] [address] 02/04/2024 10:20 AM EDT Office Visit Family Practice [facility] [address] [place] [address] Gregory Rausch MD [address] [place] [address] Scheduled Procedures Name Priority Associated Diagnoses Date/Ti [...] 02/13/2023, Additional history exists GFR 01/31/2024 08/02/2023, 110 03/2023, 06/28/2023, Additional history exists Albumin/Creatinine Ratio 03/09/2024 023, 12/22/2022, 05/05/2021, Additional history exists TSH 06/06/2024 06/06/2023, 01/23, 12/22/2022, Additional history exists CKD PHOS USE SMARTSET 52798 06/18/202405/26, 06/16/2023, 06/15/2023, Additional history exists CKD HGB USE SMARTSET 56859 07/31/202407/31, 07/31/2023, 06/29/2023, Additional history exists Diabetic [...] this encounter Medical Devices Implanted Type Area Prepper Device Identifier Shelf Expiration Date Model / Serial / Lot Cath Roselia Single Lumen - [id number] Implanted:Qty : 1 on 03/12/2008 at OR [facility] Left: Chest [employer] *DO NOT USE* 07/25/2012 21-4053-24 / / [id number] Valve Tarsha Aortic [id number] - [id number] Implanted:Qty : 1 on 11/01/2010 at OR [facility] N/A: Heart [employer] Vital Records DANIEL 05/20/2012 2800TFX-25 / / [id number] Mesh Soft [id number] - [id number] Implanted:Qty : 1 on 10/10/2019 by Gigi Hendrickson MD at OR [facility] N/A: Abdomen CR BARD : DAVOL [id number] 05/21/2024 [id number] / / [id number] Lens 22.5 Sn60wf - [id number] - [id number] Implanted:Qty : 1 on 09/15/2020 by Renaldo Cook, Cece Acosta MD at OR [facility] Right: Eye IVA : SURGICAL [id number] 05/13/2025 SN60 WF.225 / [id number] / [id number] documented as of this encounter Advance [...] the patient have Health Care Power of Business Liaison Officer? No Full Code 10/10/2019 8:40 AM [...] patient or by statute hierarchy) Care Teams Radio Repairer Domestic Relationship Specialty Start Date End Date Gregory Rausch MD [address] [place] [address] [address] PCP - General Family Medicine 02/12/20 documented as of this encounter
--- OUTSIDE RECORDS SUMMARY | 2023-10-27 12:13 | External Medical Summary | Summary of Care ---
Author Name Unknown Organization [facility] Address [address] [place] [address] Phone [phone] Care Team Providers Care Tenant Coordinator Name Role Phone Gregory Rausch MD Primary Care Provider [phone] Reason for Visit * Reason Comments Diabetes Follow-Up Dosage Adjustment In Person (Anticoag Cl inic) Insulin Pump Encounter Details Date Type Department Care Team (Late st Contact Info) Description 09/11/2023 1:40 PM EST Office Visit Pharmacy, [facility] [address] [facility] [place] [address] Pharmacist1, [facility] [address] [place] [address] Type 2 diabetes mellitus with hemoglobin A1c goal of less than 7.0% ([facility])* Allergies Active Allergy Reactions Criticality Noted Date [...] hypoglycemia E11.9 100 Tab 3 07/06/2021 Active [employer]ise[employer] Verio w/Device Kit Use up to 4 times a day E11.9 1 Kit 0 02/10/2022 Active eWiseTouch Delica Lancets 33G TEST 4 TIMES DAILY [...] long-term current use of insulin ([facility]),Type 2 diabetes mellitus with both eyes affected by mild nonproliferative retinopathy and macular edema, with long-term current use of insulin ([facility]),Type 2 diabetes mellitus with stage 3a chronic kidney disease, with long-term current use of insulin ([facility]) Inject 0.75 mL under the skin once a week. 9 mL 3 02/22/2023 Active Fluticasone Propionate 50 MCG/ACT Nasal Suspension (Flonase)Indications: Dizziness Administer 2 Sprays into each nostril in the morning. 16 g 3 03/01/2023 Active metOLazone 2.5 MG Oral Tablet (Zaroxolyn)Indication s:Acute on chronic heart failure with preserved ejection fraction (HFpEF) ([facility]) One tablet one morning twice [...] with preserved ejection fraction (HFpEF) ([facility]) Take 1 Tablet by mouth [...] goal of less than 7.0% ([facility]),Type 2 diabetes mellitus with stage 3a chronic kidney disease, with long-term current use of insulin ([facility]) Inject 30 Units under the skin at bedtime. 6 mL 2 07/31/2023 Active BD Pen Needle Short U/F 31G X 8 MMIndications:Type 2 diabetes mellitus with hemoglobin A1c goal of less than 7.0% ([facility]),Type 2 diabetes mellitus with stage 3a chronic kidney disease, with long-term current use of insulin ([facility]) Use with insulin 4 times daily 400 Each 3 07/31/2023 Active Gaviscon 80-14.2 MG Oral Tablet Chewable (Alum Hydroxide-Mag Trisilicate) Take by mouth as needed. 0 Active Nystatin 915516 UNIT/GM External Powder (Nystop)Indications:C andidal intertrigo APPLY TOPICALLY TO AFFECTED AREA 3 TIMES A DAY. APPLY TO AFFECTED AREAS 60 g 1 08/20/2023 Active Atorvastatin Calcium 40 MG Oral Tablet (Lipitor)Indications: Heart failure, systolic, due to idiopathic cardiomyopathy ([facility]),S/P aortic valve replacement,HTN, goal below [...] goal of less than 7.0% ([facility]) Use up to 50 units per day in Omnipod. 5 Each 3 09/11/2023 Active documented as of this encounter (statuses as of 09/12/2023) Active Problems Problem Noted Date Diagnosed Date Obesity, Class I, BMI 30.0-34.9 (see actual [...] eye 09/28/2020 Coronary artery disease invo lving [place] coronary artery of [place] heart without angina pectoris 12/16/2019 Last Assessment [...] Muscle tension headache 02/01/201707/26 Depression with anxiety 12/21/[address] 01/2018 Ventral hernia without obstr uction or [...] 12/21/2016 Diabetes mellitus 01/05/2014 12/21/2016 LEYVA RESEARCH OTHER*[id number] 01/05/2014 12/21/2016 Axillary pain 11/03/2013 12/21/2016 Obesity, [...] cath 09/201008/26/2011 12/21/2016 FOLLOWING SURGERY, UNSPECIFI ED ([facility] BSO 08/25/2011) 08/26/2011 12/21/2016 ADVANCE DIRECTIVE INFORMATION 04/17/2011 12/21/2016 Overview: Yes, Patient instructed to provide copy of advance directive for provider to review and to be scanned into Electronic Medical Record ADVANCE DIRECTIVE INFORMATION 03/01/2011 12/21/2016 Overview: Yes, Patient instructed to provide copy of advance directive for provider to review and to be scanned into Electronic Medical Record [facility] V710 Clinical Trial*[id number] 12/22/2010 04/14/2011 S/P aortic valve replacement 12/01/2010 08/26/2011 S/P AORTIC VALVE REPLACEMENT - #25 pericardial Hernandez valve 11/01/2010 06/28/2018 Overview: Aortic valve replacement with #25 pericardial Hernandez valve, model 2800TFX, serial number [id number] (Dr. Walker) [facility] V710 Clinical Trial*[id number] 10/18/2010 11/21/2010 Body mass index (BMI) of [...] 06/07/2018,01/08/20 18,12/05/2017,06/15,10/27/2013,09/12/2013 Pneumococcal Conjugate Vacci ne, 20-valent ([id number]) 06/22/2023 Pneumococcal Polysaccharide PPV23 (Pneumovax) 01/02/2008 Seasonal [...] of this encounter Progress Notes * Heather So Neeraj, formerly [facility] - 09/11/2023 1:41 PM EST Medication Therapy Disease Management Clinic - Diabetes Management Progress Note Jovita Rose, identified by name and date of , is a 62 year old female being seen for diabetes management/education. Patient presents for return diabetic visit. Here for Omnipod 5 and Dexcom start DIABETES: Current diabetic medications: DECREASE: Ozempic 1mg every Sunday (1mg = 36 clicks) Metformin 1000mg twice daily INCREASE: Tresiba 33 units daily Novolog CF 2/50 over 200 Medication Injection Site: Abdomen Lifestyle: Diet: unchanged History of Treatment Barriers: Lifestyle: None Therapy considerations: Cost Medication: None Glucose Review/SMBG: No BG to appointment Hypoglycemia: Does your blood sugar go below 70 mg/dL? No Hyperglycemia symptoms present: none Goal <7 Recent Labs Units 07/31/23 1134 04/09/23 1344 02/13/23 1038 HEMOGLOBIN A1C - [facility] % 6.3* 7.9* 9.2* Recent Labs Units 08/02/23 0000 07/31/23 1134 [...] COVID-19 Vaccine ( season) 2023 B-12 09/08/2023 ASSESSMENT & PLAN: ICD-10-CM 1. Type 2 diabetes mellitus with hemoglobin A1c goal of less than 7.0% (HCC) E11.9 Medication Therapy Disease Management - CSII Start Training Jovita Rose is an 62 year old year old female being seen in the Medication Therapy Disease Management Clinic today for an insulin pump start training with Omnipod Insulin Pump. Patient Active Problem List Diagnosis Code Dyslipidemia [...] stent placement Z95.5 Schizoaffective disorder, bipolar type ([facility]) F25.0 Medical marijuana use Z79.899 Coronary artery disease involving [place] coronary artery of [place] heart without angina pectoris I25.10 Cystoid macular edema of right eye H35.351 Chronic kidney disease, stage 3a N18.31 Type 2 diabetes mellitus with stage 3a chronic kidney disease, with long-term current use of insulin ([facility]) E11.22, N18.31, Z79.4 Type 2 diabetes mellitus with both eyes affected by mild nonproliferative retinopathy and macular edema, with long-term current use of insulin ([facility]) E11.3213, Z79.4 Type 2 diabetes mellitus with diabetic peripheral angiopathy without gangrene ([facility]) E11.51 Obesity, Class I, BMI 30.0-34.9 (see actual BMI) E66.9 Review of patient's allergies indicates: Allergen Reactions Adhesive Tape Can tolerate band-aids Glycerin Other (Please comment) Topical agents with glycein-burning & itching Lactose Dairy - gas Lisinopril Cough Monosodium Glutamate Edema Other Hands and feet Pcn [Penicillins] Rash Current Outpatient Medications Medication Sig Dispense Refill Insulin Aspart 100 UNIT/ML Injection Solution (NovoLOG) [facility] Each 3 aspirin enteric coated 81 MG TBEC Take [...] mg/dL for hypoglycemia E11.9 100 Tab 3 eWiseTouch Verio w/Device Kit Use up to 4 times a day E11.9 1 Kit 0 [employer] DelValetAnywhere Lancets 33G TEST 4 TIMES DAILY DIRECTED, [...] Trisilicate) Take by mouth as needed. Nystatin 071932 UNIT/GM External Powder (Nystop) APPLY TOPICALLY TO [...] 1 Tablet by mouth in the morning. No current facility-administered medications for this visit. Objective: The ASCVD Risk score (O[place] DK, et al., 2019) failed to calculate for the following reasons: The patient has a prior SC or stroke diagnosis Estimated body mass index is 31.31 kg/m as calculated from the following: Height as of 07/31/23: 1.499 m (4' 11"). Weight as of 09/06/23: 70.3 kg (155 lb). BP Readings from Last 3 Encounters: 09/06/23 120/64 07/31/23 130/62 07/28/23 140/72 No components found for: "[id number]" No results found for: "MICROALBUMIN" Lab Results Component Value Date/Time LDL CHOLESTEROL (CALCULATED) - [facility] 32 08/30/2018 04:00 PM LDL CHOLESTEROL (DIRECT MEASURE) - [facility] 52 04/09/2023 01:44 PM LDL CHOLESTEROL (DIRECT MEASURE) - [facility] 30 09/07/2020 10:58 AM LDL- [facility] ([facility]) 40 11/04/2013 05:25 AM Lab Results Component Value Date/Time ALT - [facility] 9 (L) 07/31/2023 11:34 AM ALT - [facility] 20 09/07/2020 10:58 AM ALT-OUTSIDE LAB 25 07/17/2017 12:00 AM Assessment & Plan: The following education was completed in clinic today: Reviewed pump basics, including: Pump supplies and how to reorder Where to find Customer's Bill of Rights and Responsibilities in User Guide Personal Parlor Maid (PDM): ID screen, pump buttons, battery and reservoir compartments, serial number Modes of operation (normal, temp basal, low battery/reservoir, suspend) Status screen Menu features Omnipod help line and clinic phone number for 16/04 support Initial pump settings programmed as noted below under medications. Reviewed how to update alert type and time/date Basal rate programmed Bolus settings programmed, including: ICR, ISF, BG target & active insulin Taught patient how to use bolus wizard, including: Based on ICR/fixed dose only (no glucose reading) Correction dose only (blood glucose reading, no carb intake) Carb intake plus correction Taught patient how to manage hyperglycemia (blood glucose >250mg/dL), including: If bolus calculator ON, enter blood glucose into pump and deliver correction dose - confirm insulin dose and press ENTER to deliver insulin If bolus calculator OFF, give manual bolus using correction scale Recheck blood glucose in 1-2 hours If blood glucose remains >250mg/dL: - give a correction dose via syringe - change infusion set, site, reservoir and insulin Contact clinic if blood glucose remains >250mg/dL despite above Reviewed suspend feature and discussed appropriate use (when changing pod) Patient demonstrated ability to fill pod and attach to body. Pod must be to the right of and touching PDM for activation Check pink slide window to ensure cannula has deployed PDM must be within 5 feet of pod for communication (administer bolus doses), otherwise can only deliver basal regimen. Patient instructed to SMBG at least 4 times daily, before each meal and at bedtime. Diabetes Medications: (pump initiation settings scanned in [employer]) DECREASE: Ozempic 1mg every Sunday (1mg = 36 clicks) Metformin 1000mg twice daily STOP: Tresiba 33 units daily Novolog CF 2 over 200 (insert other dm medications here) Omnipod Insulin Pump (Serial Number: need to get after starting) Insulin: Novolog Basal Rate: 0.55 units/hour Bolus: 0 units with breakfast, 0 units with lunch and 0 units with supper Bolus Calculator: on and using ICR: 18 ISF: 50 Blood Glucose Goal Limits: 70-180 Bolus Calculator: Target B Correct above: 180 Minimum B Active Insulin Time: 2 BG Readings - Blood sugars not available. Medications - Reviewed current regimen, patient is adherent to regimen. Diet, Exercise, Lifestyle - No significant lifestyle changes since last visit. Discussed with patient today. Patient is agreeable to wear Dexcom G7 until G6 available. Patient aware to contact clinic if any hypoglycemia before next visit. HEALTH MAINTENANCE INTERVENTIONS: Labs: Up to Date Immunizations: Up to Date Foot Exam: phone call visit Eye Exam: needs completed Annual Wellness Visit: N/A FOLLOW UP: Phone call follow up in 3 days 09/14/2023 Neeraj Romero RPh, ROGER Clinical Pharmacist - Single Pointed Operator Medication Therapy Management Clinic 09/11/2023, 1:41 PM documented in this encounter Plan of Treatment Upcoming Encounters Date Type Department Care Team (Late st Contact Info) Description 09/12/2023 1:00 PM EST Telemedicine Family Practice [facility] [address] [address] Angeline Puentes DO [address] [place] [address] 09/14/2023 2:00 PM EST Office Visit Pharmacy, [facility] [address] [facility] [place] [address] Pharmacist1, [facility] [address] [facility] [place] [address] 10/12/2023 10:00 AM EST Home Visit [facility] [address] [place] [address] Jaycee Sorto RN [address] [place] [address] 10/15/2023 11:00 AM EST Office Visit Cardiology, [facility] [address] [place] [address] Feli Teague PA-C [address] [place] [address] 02/04/2024 10:20 AM EDT Office Visit Family Practice [facility] [address] [place] [address] Gregory Rausch MD [address] [place] [address] Scheduled Procedures Name Priority Associated Diagnoses Date/Ti [...] Additional history exists CKD PHOS USE SMARTSET 37519 06/18/202405/26, 06/16/2023, 06/15/2023, Additional history exists CKD HGB USE SMARTSET 15973 07/31/202407/31, 07/31/2023, 06/29/2023, Additional history exists COLONOSCOPY-EVERY [...] this encounter Medical Devices Implanted Type Area Paper Pattern Folder Device Identifier Shelf Expiration Date Model / Serial / Lot Cath Roselia Single Lumen - [id number] Implanted:Qty : 1 on 03/12/2008 at OR [facility] Left: Chest [employer] *DO NOT USE* 07/25/2012 21-4053-24 / / [id number] Valve Tarsha Aortic [id number] - [id number] Implanted:Qty : 1 on 11/01/2010 at OR [facility] N/A: Heart [employer] DANIEL 05/20/2012 2800TFX-25 / / [id number] Mesh Soft [id number] - [id number] Implanted:Qty : 1 on 10/10/2019 by Gigi Hendrickson MD at OR [facility] N/A: Abdomen CR BARD : DAVOL [id number] 05/21/2024 [id number] / / [id number] Lens 22.5 Sn60wf - [id number] - [id number] Implanted:Qty : 1 on 09/15/2020 by Cece Roland MD at [facility] Right: Eye IVA : SURGICAL [id number] 05/13/2025 SN60 WF.225 / [id number] / [id number] documented as of this encounter Visit Diagnoses Diagnosis Type 2 diabetes mellitus with hemoglobin A1c goal of less than 7.0% (HCC)- Primary documented in this encounter Advance Directives Latest [...] the patient have Health Care Power of Quantitative Analyst Marketing? No Full Code 10/10/2019 8:40 AM 10/10/2019 5:53 PM This order reflects the patients wishes and were consensually agreed upon. Full Code 11/06/2017 4:55 PM 11/07/2017 7:14 PM This order reflects the patients wishes and were consensually agreed upon. Healthcare Agents on File Name Relationship Healthcare Agent [facility] Communication Gigi Rose Adult Child Health Care Repr esentative (appointed verbally by patient or by statute hierarchy) Care Teams Tenant Coordinator Relationship Specialty Start Date End Date Gregory Rausch MD [address] [place] [address] PCP - General Family Medicine 02/12/20 documented as of this encounter
--- OUTSIDE RECORDS SUMMARY | 2023-10-27 12:13 | External Medical Summary | Summary of Care ---
Author Name Unknown Organization [facility] Address [address] [place] [address] Phone [phone] Care Team Providers Care Malt Specifications Control Assistant Name Role Phone Gregory Rausch MD Primary Care Provider [phone] Reason for Visit * Reason Onset Date Comments Appointment 09/12/2023 EMG Encounter Details Date Type Department Care Team (Late st Contact Info) Description 09/12/2023 Telephone Family Practice [facility] [address] [place] [address] Angeline Puentes DO [address] [place] [id number] Appointment (EMG) Allergies Active Allergy Reactions Criticality Noted Date [...] hypoglycemia E11.9 100 Tab 3 07/06/2021 Active [employer] Verio w/Device Kit Use up to 4 times a day E11.9 1 Kit 0 02/10/2022 Active [employer] Delica Lancets 33G TEST 4 TIMES DAILY [...] ([facility]) Inject 0.75 mL under the skin [...] ER 10 MEQ Oral Tablet Extended ReleaseIndications:Ac [place] on chronic heart failure with preserved ejection fraction (HFpEF) ([facility]) Take 1 Tablet by mouth in [...] by mouth as needed. 0 Active Nystatin 879884 UNIT/GM External Powder (Nystop)Indications:C andidal intertrigo APPLY [...] eye 09/28/2020 Coronary artery disease invo lving [place] coronary artery of [place] heart without angina pectoris 12/16/2019 Last Assessment [...] tension headache 02/01/201707/26 Depression with anxiety 12/21/2016 10/0 01/2018 Ventral hernia without obstr uction or [...] 12/21/2016 Diabetes mellitus 01/05/2014 12/21/2016 LEYVA RESEARCH OTHER*[id number] 01/05/2014 12/21/2016 Axillary pain 11/03/2013 12/21/2016 Obesity, [...] 12/21/2016 FOLLOWING SURGERY, UNSPECIFI ED ([facility] BSO 08/25/2011) 08/26/2011 12/21/2016 ADVANCE [...] Electronic Medical Record [facility] V710 Clinical Trial*[id number] 12/22/2010 04/14/2011 S/P aortic valve replacement 12/01/2010 08/26/2011 S/P AORTIC VALVE REPLACEMENT - #25 pericardial Mc valve 11/01/2010 06/28/2018 Overview: Aortic valve replacement with #25 pericardial Mc valve, model 2800TFX, serial number [id number] (Dr. Walker) [facility] V710 Clinical Trial*[id number] 10/18/2010 11/21/2010 Body mass index (BMI) of [...] 06/07/2018,01/08/20 18,12/05/2017,06/15,10/27/2013,09/12/2013 Pneumococcal Conjugate Vacci ne, 20-valent (Irssoct90) 06/22/2023 Pneumococcal Polysaccharide PPV23 (Pneumovax) 01/02/2008 Seasonal [...] encounter Miscellaneous Notes * Telephone Encounter - Jessica Yang PHARM Tech - 09/12/2023 2:04 PM EST Pt returning call to scheduling EMG. Transferred to scheduling. Thank you, Jessica Yang Culture Room Worker [facility] (Formerly [facility]pharm[facility]) 09/12/2023,2:06 PM * Telephone Encounter - Laya Garcia OSA - 09/12/2023 1:29 PM EST LM for pt to call back to schedule her EMG documented in this encounter Plan of Treatment Upcoming Encounters Date Type Department Care Team (Late st Contact Info) Description 09/14/2023 2:00 PM EST Office Visit Pharmacy, [facility] [address] [facility] [place] [address] Pharmacist1, [facility] [address] [place] [address] 10/12/2023 10:00 AM EST Home Visit [facility] [address] [place] [address] Jaycee Sorto, RN [address] [place] [address] 10/15/2023 11:00 AM EST Office Visit Cardiology, [facility] [address] [place] [address] Feli Teague, PALeoC [address] [place] [address] 02/04/2024 10:20 AM EDT Office Visit [facility] [address] [place] [address] Gregory Rausch MD [address] [place] [address] Scheduled Procedures Name Priority Associated Diagnoses Date/Ti [...] Additional history exists CKD PHOS USE SMARTSET 58907 06/18/202405/26, 06/16/2023, 06/15/2023, Additional history exists CKD HGB USE SMARTSET 99373 07/31/202407/31, 07/31/2023, 06/29/2023, Additional history exists COLONOSCOPY-EVERY [...] this encounter Medical Devices Implanted Type Area Game And Fish Protector Device Identifier Shelf Expiration Date Model / Serial / Lot Cath Roselia Single Lumen - [id number] Implanted:Qty : 1 on 03/12/2008 at OR [facility] Left: Chest [facility] *DO NOT USE* 07/25/2012 21-4053-24 / / [id number] Valve Tarsha Aortic [id number] - [id number] Implanted:Qty : 1 on 11/01/2010 at OR [facility] N/A: Heart [employer] DANIEL 05/20/2012 [id number]-25 / / [id number] Mesh Soft [id number] - [id number] Implanted:Qty : 1 on 10/10/2019 by Gigi Hendrickson MD at OR [facility] N/A: Abdomen CR BARD : DAVOL [id number] 05/21/2024 [id number] / / [id number] Lens 22.5 Sn60wf - [id number] - [id number] Implanted:Qty : 1 on 09/15/2020 by Renaldo Cook, Cece Acosta MD at [facility] Right: Eye IVA : SURGICAL [id number] 05/13/2025 SN60 WF.225 / [id number] / [id number] documented as of this encounter Advance [...] patient have Health Care Power of Senior Climate Advisor? No Full Code 10/10/2019 8:40 AM 10/10/2019 [...] patient or by statute hierarchy) Care Teams Malt Specifications Control Assistant Relationship Specialty Start Date End Date Gregory Rausch MD [address] [place] [address] PCP - General Family Medicine 02/12/20 documented as of this encounter
--- OUTSIDE RECORDS SUMMARY | 2023-10-27 12:13 | External Medical Summary | Summary of Care ---
Author Name Unknown Organization [facility] Address [address] [place] [address] Phone [phone] Care Team Providers Care Office Helper Name Role Phone Gregory Rausch MD Primary Care Provider [phone] Reason for Visit * Reason Comments Diabetes Follow-Up Dosage Adjustment In Person (Anticoag Cl inic) Insulin Pump Encounter Details Date Type Department Care Team (Late st Contact Info) Description 09/11/2023 1:40 PM EST Office Visit Pharmacy, [facility] [address] [facility] [place] [address] Pharmacist1, [facility] [address] [facility] [place] [address] Type 2 diabetes mellitus with hemoglobin A1c goal of less than 7.0% ([facility]ER[facility])* Allergies Active Allergy Reactions Criticality Noted Date [...] hypoglycemia E11.9 100 Tab 3 07/06/2021 Active [employer] Verio w/Device Kit Use up to 4 times a day E11.9 1 Kit 0 02/10/2022 Active [employer] Delica Lancets 33G TEST 4 TIMES DAILY [...] by mouth as needed. 0 Active Nystatin 239429 UNIT/GM External Powder (Nystop)Indications:C andidal intertrigo APPLY [...] 12/21/2016 Diabetes mellitus 01/05/2014 12/21/2016 LEYVA RESEARCH OTHER*[id number] 01/05/2014 12/21/2016 Axillary pain 11/03/2013 12/21/2016 Obesity, [...] 12/21/2016 FOLLOWING SURGERY, UNSPECIFI ED ([facility] BSO 08/25/2011) 08/26/2011 12/21/2016 ADVANCE DIRECTIVE INFORMATION 04/17/2011 12/21/2016 Overview: Yes, Patient instructed to provide copy of advance directive for provider to review and to be scanned into Electronic Medical Record ADVANCE DIRECTIVE INFORMATION 03/01/2011 12/21/2016 Overview: Yes, Patient instructed to provide copy of advance directive for provider to review and to be scanned into Electronic Medical Record [facility] V710 Clinical Trial*[id number] 12/22/2010 04/14/2011 S/P aortic valve replacement 12/01/2010 08/26/2011 S/P AORTIC VALVE REPLACEMENT - #25 pericardial Hernandez valve 11/01/2010 06/28/2018 Overview: Aortic valve replacement with #25 pericardial Hernandez valve, model 2800TFX, serial number [id number] (Dr. Walker) [facility] V710 Clinical Trial*[id number] 10/18/2010 11/21/2010 Body mass index (BMI) of [...] 06/07/2018,01/08/20 18,12/05/2017,06/15,10/27/2013,09/12/2013 Pneumococcal Conjugate Vacci ne, 20-valent (Xraawro11) 06/22/2023 Pneumococcal Polysaccharide PPV23 (Pneumovax) 01/02/2008 Seasonal [...] this encounter Progress Notes * Neeraj Matthew, [facility] - 09/11/2023 1:41 PM EST Medication Therapy [...] stent placement Z95.5 Schizoaffective disorder, bipolar type ([facility]) F25.0 Medical marijuana use Z79.899 Coronary artery disease involving [place] coronary artery of [place] heart without angina pectoris I25.10 Cystoid macular edema of right eye H35.351 Chronic kidney disease, stage 3a N18.31 Type 2 diabetes mellitus with stage 3a chronic kidney disease, with long-term current use of insulin ([facility]) E11.22, N18.31, Z79.4 Type 2 diabetes mellitus with both eyes affected by mild nonproliferative retinopathy and macular edema, with long-term current use of insulin ([facility]) E11.3213, Z79.4 Type 2 diabetes mellitus with diabetic peripheral angiopathy without gangrene ([facility]) E11.51 Obesity, Class I, BMI 30.0-34.9 [...] [facility] Each 3 aspirin enteric coated 81 [...] mg/dL for hypoglycemia E11.9 100 Tab 3 [employer] Verio w/Device Kit Use up to 4 times a day E11.9 1 Kit 0 XMLAW Lancets 33G TEST 4 TIMES DAILY DIRECTED, [...] Trisilicate) Take by mouth as needed. Nystatin 289815 UNIT/GM External Powder (Nystop) APPLY TOPICALLY TO [...] this visit. Objective: The ASCVD Risk score (Kennedy DK, et al., 2019) failed to calculate for the following reasons: The patient has a prior CT or stroke diagnosis Estimated body mass index is 31.31 kg/m as calculated from the following: Height as of 07/31/23: 1.499 m (4' 11"). Weight as of 09/06/23: 70.3 kg (155 lb). BP Readings from Last 3 Encounters: 09/06/23 120/64 07/31/23 130/62 07/28/23 140/72 No components found for: "[id number]" No results found for: "MICROALBUMIN" Lab Results Component Value Date/Time LDL CHOLESTEROL (CALCULATED) - TRACEY 32 08/30/2018 04:00 PM LDL CHOLESTEROL (DIRECT MEASURE) - ISING 52 04/09/2023 01:44 PM LDL CHOLESTEROL (DIRECT MEASURE) - ISING 30 09/07/2020 10:58 AM LDL- CHOL (G-CMC) 40 11/04/2013 05:25 AM Lab Results Component Value Date/Time ALT - [facility] 9 (L) 07/31/2023 11:34 AM ALT - [facility] 20 09/07/2020 10:58 AM ALT-OUTSIDE LAB 25 07/17/2017 12:00 AM Assessment & Plan: The following education was completed in clinic today: Reviewed pump basics, including: Pump supplies and how to reorder Where to find Customer's Bill of Rights and Responsibilities in User Guide Personal Inspector Materials And Processes (PDM): ID screen, pump buttons, battery and [...] Diabetes Medications: (pump initiation settings scanned in [employer]) DECREASE: Ozempic 1mg every Sunday (1mg = 36 clicks) Metformin 1000mg twice daily STOP: Tresiba 33 units daily Novolog CF over 200 (insert other dm medications here) [...] Neeraj Romero RPh, ROGER Clinical Pharmacist - Powder And Primer Canning Leader [facility] 09/11/2023, 1:41 PM documented in this encounter Plan of Treatment Upcoming Encounters Date Type Department Care Team (Late st Contact Info) Description 09/14/2023 2:00 PM EST Office Visit Pharmacy, [facility] [address] [facility] [place] [address] Pharmacist1, [facility] [address] [facility] [place] [address] 09/26/2023 11:00 AM EST NeuroDiagnostic Study Neurophysiology [facility] [place] [address] [facility] [place] [address] Thomas Medina, DO [address] [place] [address] 10/12/2023 10:00 AM EST Home Visit [facility] at [place], [facility] [address] [place] [address] Jaycee Sorto, RN [address] [place] [address] 10/15/2023 11:00 AM EST Office Visit Cardiology, [facility] [address] [place] [address] Feli Teague PA-C [address] [place] [address] 02/04/2024 10:20 AM EDT Office Visit Family Practice [facility] [address] [place] [address] Gregory Rausch MD [address] [place] [address] Scheduled Procedures Name Priority Associated Diagnoses Date/Ti [...] Additional history exists CKD PHOS USE SMARTSET 11560 06/18/202405/26, 06/16/2023, 06/15/2023, Additional history exists CKD HGB USE SMARTSET 97104 07/31/202407/31, 07/31/2023, 06/29/2023, Additional history exists COLONOSCOPY-EVERY [...] this encounter Medical Devices Implanted Type Area Quilting Machine Helper Device Identifier Shelf Expiration Date Model / Serial / Lot Cath Roselia Single Lumen - [id number] Implanted:Qty : 1 on 03/12/2008 at OR [facility] Left: Chest [employer] *DO NOT USE* 07/25/2012 21-4053-24 / / [id number] Valve Tarsha Aortic [id number] - [id number] Implanted:Qty : 1 on 11/01/2010 at OR [facility] N/A: Heart [employer] DANIEL 05/20/2012 2800TFX-25 / / [id number] Mesh Soft [id number] - [id number] Implanted:Qty : 1 on 10/10/2019 by Gigi Hendrickson MD at [place] [facility] N/A: Abdomen CR BARD : DAVOL [id number] 05/21/2024 [id number] / / [id number] Lens 22.5 Sn60wf - [id number] - [id number] Implanted:Qty : 1 on 09/15/2020 by Cece Roland MD at [facility] Right: Eye IVA : SURGICAL [id number] 05/13/2025 SN60 WF.225 / [id number] / [id number] documented as of this encounter Visit [...] the patient have Health Care Power of Powder Coat Painter? No Full Code 10/10/2019 8:40 AM 10/10/2019 5:53 PM This order reflects the patients wishes and were consensually agreed upon. Full Code 11/06/2017 4:55 PM 11/07/2017 7:14 PM This order reflects the patients wishes and were consensually agreed upon. Healthcare Agents on File Name Relationship Healthcare Agent Glenda p Communication Gigi Rose Adult Child Health Care Repr esentative (appointed verbally by patient or by statute hierarchy) Care Teams Office Helper Relationship Specialty Start Date End Date Gregory Rausch MD [address] [place] [address] PCP - General Family Medicine 02/12/20 documented as of this encounter
--- OUTSIDE RECORDS SUMMARY | 2023-10-27 12:13 | External Medical Summary | Summary of Care ---
Author Name Unknown Organization [facility] Address [address] [place] [address] Phone [phone] Care Team Providers Care Geographic Information Systems Engineer Name Role Phone Gregory Rausch MD Primary Care Provider [phone] Reason for Visit * Reason Comments Diabetes Follow-Up Dosage Adjustment Via Phone (anticoag Cl inic) Encounter Details Date Type Department Care Team (Late st Contact Info) Description 09/14/2023 2:00 PM EST Office Visit Pharmacy, [facility] [address] [facility] [place] [address] Pharmacist1, [facility] [address] [place] [address] Type 2 diabetes mellitus with stage 3a chronic kidney disease, with long-term current use of insulin ([facility])*; Type 2 diabetes mellitus with hemoglobin A1c goal of less than 7.0% ([facility]) Allergies Active Allergy Reactions [...] hypoglycemia E11.9 100 Tab 3 07/06/2021 Active [employer] Verio w/Device Kit Use up to 4 times a day E11.9 1 Kit 0 02/10/2022 Active [employer] Delica Lancets 33G TEST 4 TIMES DAILY [...] ([facility]),Type 2 diabetes mellitus with diabetic mononeuropathy, [...] by mouth as needed. 0 Active Nystatin 882863 UNIT/GM External Powder (Nystop)Indications:C andidal intertrigo APPLY [...] eye 09/28/2020 Coronary artery disease invo lving [place] coronary artery of [place] heart without angina pectoris 12/16/2019 Last Assessment [...] 12/21/2016 Diabetes mellitus 01/05/2014 12/21/2016 LEYVA RESEARCH OTHER*[id number] 01/05/2014 12/21/2016 Axillary pain 11/03/2013 12/21/2016 Obesity, [...] cath 09/201008/26/2011 12/21/2016 FOLLOWING SURGERY, UNSPECIFI ED ([facility] BSO 08/25/2011) 08/26/2011 12/21/2016 ADVANCE DIRECTIVE [...] [facility] V[facility] Clinical Trial*[id number] 12/22/2010 04/14/2011 S/P aortic valve replacement 12/01/2010 08/26/2011 S/P AORTIC VALVE REPLACEMENT - #25 pericardial Mc valve 11/01/2010 06/28/2018 Overview: Aortic valve replacement with #25 pericardial Mc valve, model 2800TFX, serial number [id number] (Dr. Walker) [facility] V710 Clinical Trial*[id number] 10/18/2010 11/21/2010 Body mass index (BMI) of [...] 06/07/2018,01/08/20 18,12/05/2017,06/15,10/27/2013,09/12/2013 Pneumococcal Conjugate Vacci ne, 20-valent (Ozwmpxb32) 06/22/2023 Pneumococcal Polysaccharide PPV23 (Pneumovax) 01/02/2008 Seasonal [...] of this encounter Progress Notes * Neeraj Matthew RPh - 09/13/2023 9:40 AM EST Patient Phone Numbers Spoke to patient and she has not started her Omnipod 5 system yet. She needs an insurance override for Novolog vials and Jessie has been unable to speak to [facility] to get this override. I tried several short acting insulins and all are listed as NON-FORMULARY. I did explain how to use Novolog pens to fill her pods but patient wants to wait until vials available. Steph also sent Dexcom G7 sensors to her instead of G6 sensors (G6 sensors were ordered). A new order was sent to Steph for G6 sensors asking that they be shipped [facility]. I will follow up next week to see if she was able to get Novolog vials and/or start the pods. Neeraj Romero RPh, CACP, CDE Clinical Pharmacist Medication Therapy Management Clinic 09/13/2023, 9:44 AM documented in this encounter Plan of Treatment Upcoming Encounters Date Type Department Care Team (Late st Contact Info) Description 09/19/2023 1:40 PM EST Pharmacy Pharmacy, [facility] [address] [place] [address] Pharmacist1, [facility] [address] [place] [address] 09/26/2023 11:00 AM EST NeuroDiagnostic Study Neurophysiology [facility] [address] [place] [address] Thomas Medina, DO [address] [place] [address] 10/12/2023 10:00 AM EST [facility], [facility] [address] [facility] [place] [address] Jaycee Sorto RN [facility] [place] [address] 10/15/2023 11:00 AM EST Office Visit Cardiology, [facility] [address] [facility] [place] [address] Feli Teague PA-C [address] [facility] [place] [address] 02/04/2024 10:20 AM EDT Office Visit Family Practice [facility] [address] [facility] [place] [address] Gregory Rausch MD [address] [facility] [place] [address] Scheduled Procedures Name Priority Associated Diagnoses Date/Ti [...] 02/13/2023, Additional history exists GFR 01/31/2024 08/02/2023, 03/2023, 06/28/2023, Additional history exists Albumin/Creatinine Ratio 03/09/2024 023, 12/22/2022, 05/05/2021, Additional history exists TSH 06/06/2024 06/06/2023, 01/23, 12/22/2022, Additional history exists CKD PHOS USE SMARTSET 23945 06/18/202405/26, 06/16/2023, 06/15/2023, Additional history exists CKD HGB USE SMARTSET 75246 07/31/202407/31, 07/31/2023, 06/29/2023, Additional history exists COLONOSCOPY-EVERY [...] this encounter Medical Devices Implanted Type Area Senior Software Qa Engineer Device Identifier Shelf Expiration Date Model / Serial / Lot Cath Roselia Single Lumen - [id number] Implanted:Qty : 1 on 03/12/2008 at OR [facility] Left: Chest [employer] *DO NOT USE* 07/25/2012 21-4053-24 / / [id number] Valve Tarsha Aortic [id number] - [id number] Implanted:Qty : 1 on 11/01/2010 at OR [facility] N/A: Heart [employer] DANIEL 05/20/2012 2800TFX-25 / / [id number] Mesh Soft [id number] - [id number] Implanted:Qty : 1 on 10/10/2019 by Gigi Hendrickson MD at OR [facility] N/A: Abdomen CR BARD : DAVOL [id number] 05/21/2024 [id number] / / [id number] Lens 22.5 Sn60wf - [id number] - [id number] Implanted:Qty : 1 on 09/15/2020 by Renaldo Cook, Cece Acosta MD at [facility] Right: Eye IVA : SURGICAL [id number] 05/13/2025 SN60 WF.225 / [id number] / [id number] documented as of this encounter Visit Diagnoses Diagnosis Type 2 diabetes mellitus with stage 3a chronic kidney disease, with long-term current use of insulin (HCC)- Primary Type 2 diabetes mellitus with hemoglobin A1c goal of less than 7.0% (HCC) documented in this encounter Advance Directives Latest [...] the patient have Health Care Power of Customer Service Manager? No Full Code 10/10/2019 8:40 AM [...] patient or by statute hierarchy) Care Teams Geographic Information Systems Engineer Relationship Specialty Start Date End Date Gregory Rausch MD [address] [place] [address] PCP - General Family Medicine 02/12/20 documented as of this encounter
--- OUTSIDE RECORDS SUMMARY | 2023-10-27 12:13 | External Medical Summary | Summary of Care ---
Author Name Unknown Organization [facility] Address [address] [place] [address] Phone [phone] Care Team Providers Care Director Media Name Role Phone Gregory Rausch MD Primary Care Provider [phone] Reason for Visit * Reason Onset Date Comments Other 09/12/2023 Encounter Details Date Type Department Care Team (Late st Contact Info) Description 09/12/2023 Telephone Pharmacy, Eric Guerrero [address] [place] [address] Pharmacist1, [facility] [address] [place] [id number] Other Allergies Active Allergy Reactions Criticality Noted Date [...] hypoglycemia E11.9 100 Tab 3 07/06/2021 Active SiVerionTouch Verio w/Device Kit Use up to 4 times a day E11.9 1 Kit 0 02/10/2022 Active SiVerionTouch Delica Lancets 33G TEST 4 TIMES DAILY [...] goal of less than 7.0% ([facility]) Use as directed. Use 1 [...] long-term current use of insulin ([facility]),Type 2 diabetes mellitus with stage 3a chronic kidney disease, with long-term current use of insulin ([facility]) Inject 0.75 mL under the skin once a week. 9 mL 3 02/22/2023 Active Fluticasone Propionate 50 MCG/ACT Nasal Suspension (Flonase)Indications: Dizziness Administer 2 Sprays into each nostril in the morning. 16 g 3 03/01/2023 Active metOLazone 2.5 MG Oral Tablet (Zaroxolyn)Indication s:Acute on chronic heart failure with preserved ejection fraction (HFpEF) ([facility]) One tablet one morning twice [...] ER 10 MEQ Oral Tablet Extended ReleaseIndications:Ac [place] on chronic heart failure with preserved ejection fraction (HFpEF) ([facility]) Take 1 Tablet by mouth [...] goal of less than 7.0% ([facility]),Type 2 diabetes mellitus with stage 3a chronic kidney disease, with long-term current use of insulin ([facility]) Inject 30 Units under the skin at bedtime. 6 mL 2 07/31/2023 Active BD Pen Needle Short U/F 31G X 8 MMIndications:Type 2 diabetes mellitus with hemoglobin A1c goal of less than 7.0% ([facility]),Type 2 diabetes mellitus with stage 3a chronic kidney disease, with long-term current use of insulin ([facility]) Use with insulin 4 times daily 400 Each 3 07/31/2023 Active Gaviscon 80-14.2 MG Oral Tablet Chewable (Alum Hydroxide-Mag Trisilicate) Take by mouth as needed. 0 Active Nystatin 849277 UNIT/GM External Powder (Nystop)Indications:C andidal intertrigo APPLY TOPICALLY TO AFFECTED AREA 3 TIMES A DAY. APPLY TO AFFECTED AREAS 60 g 1 08/20/2023 Active Atorvastatin Calcium 40 MG Oral Tablet (Lipitor)Indications: Heart failure, systolic, due to idiopathic cardiomyopathy ([facility]),S/P aortic valve replacement,HTN, goal below [...] goal of less than 7.0% ([facility]) Use up to 50 units per day in Omnipod. 5 Each 3 09/11/2023 Active Gabapentin 100 MG Oral Capsule (Neurontin)Indication s:Polyneuropathy associated with underlying disease ([facility]) Take 1 Capsule by mouth [...] 09/28/2020 Coronary artery disease invo lving [place] coronary artery of [place] heart without angina pectoris 12/16/2019 Last Assessment [...] 12/21/2016 Diabetes mellitus 01/05/2014 12/21/2016 LEYVA RESEARCH OTHER*[id number] 01/05/2014 12/21/2016 Axillary pain 11/03/2013 12/21/2016 Obesity, [...] 09/201008/26/2011 12/21/2016 FOLLOWING SURGERY, UNSPECIFI ED ([facility] BSO 08/25/2011) 08/26/2011 12/21/2016 ADVANCE [...] Medical Record [facility] V710 Clinical Trial*[id number] 12/22/2010 04/14/2011 S/P aortic valve replacement 12/01/2010 08/26/2011 S/P AORTIC VALVE REPLACEMENT - #25 pericardial Mc valve 11/01/2010 06/28/2018 Overview: Aortic valve replacement with #25 pericardial Mc valve, model 2800TFX, serial number [id number] (Dr. Walker) [facility] V710 Clinical Trial*[id number] 10/18/2010 11/21/2010 Body mass index (BMI) of [...] 06/07/2018,01/08/20 18,12/05/2017,06/15,10/27/2013,09/12/2013 Pneumococcal Conjugate Vacci ne, 20-valent ([id number]) 06/22/2023 Pneumococcal Polysaccharide PPV23 (Pneumovax) 01/02/2008 Seasonal [...] Telephone Encounter - Neeraj Matthew RPh - 09/12/2023 3:59 PM EST Spoke to Artur at [facility] and no insulin is coming up as covered for her pump. I gave Artur the number for [facility] nurse (corrections caseworker) to call to get override. Neeraj So. Paris Romero, CACP, CDE Clinical Pharmacist [facility] 09/12/2023, 4:01 PM * Telephone Encounter - Dariusz Quiros fish smoker - 09/12/2023 1:39 PM EST Caller's name: Artur Preferred call back number(OFFICE NUMBER FOR ): [phone] Reason for call: Received call from [facility] regarding RX for pt omnipod, requesting to speak to [facility] Thank you, Dariusz Quiros [facility] Candle Molder Hand [facility] Telepharmacy 09/12/2023,1:39 PM documented in this encounter Plan of Treatment Upcoming Encounters Date Type Department Care Team (Late st Contact Info) Description 09/14/2023 2:00 PM EST Office Visit Pharmacy, [facility] [address] [place] [address] Pharmacist1, [facility] [address] [place] [address] 09/26/2023 11:00 AM EST NeuroDiagnostic Study Neurophysiology [facility] [address] [place] [address] Thomas Medina, DO [address] [place] [address] 10/12/2023 10:00 AM EST [facility] Visit [facility], [facility] [address] [facility] [place] [address] Jaycee Sorto, RN [address] [place] [address] 10/15/2023 11:00 AM EST Office Visit Cardiology, [facility] [address] [facility] [place] [address] Feli Teague PA-C [address] [facility] [place] [address] 02/04/2024 10:20 AM EDT Office Visit Family Practice [facility] [address] [facility] [place] [address] Gregory Rausch MD [address] [facility] [place] [address] Scheduled Procedures Name Priority Associated Diagnoses Date/Ti [...] Additional history exists CKD PHOS USE SMARTSET 58986 06/18/202405/26, 06/16/2023, 06/15/2023, Additional history exists CKD HGB USE SMARTSET 07133 07/31/202407/31, 07/31/2023, 06/29/2023, Additional history exists COLONOSCOPY-EVERY [...] this encounter Medical Devices Implanted Type Area Hydraulic Modeling Engineer Device Identifier Shelf Expiration Date Model / Serial / Lot Cath Roselia Single Lumen - [id number] Implanted:Qty : 1 on 03/12/2008 at OR [facility] Left: Chest [employer] *DO NOT USE* 07/25/2012 21-4053-24 / / [id number] Valve Tarsha Aortic [id number] - [id number] Implanted:Qty : 1 on 11/01/2010 at OR [facility] N/A: Heart [employer] DANIEL 05/20/2012 2800TFX-25 / / [id number] Mesh Soft [id number] - [id number] Implanted:Qty : 1 on 10/10/2019 by Gigi Hendrickson MD at OR [facility] N/A: Abdomen CR BARD : DAVOL [id number] 05/21/2024 [id number] / / [id number] Lens 22.5 Sn60wf - [id number] - [id number] Implanted:Qty : 1 on 09/15/2020 by Renaldo Cook, Cece Acosta MD at OR [facility] Right: Eye IVA : SURGICAL [id number] 05/13/2025 SN60 WF.225 / [id number] / [id number] documented as of this encounter Advance [...] the patient have Health Care Power of Garbage Man? No Full Code 10/10/2019 8:40 AM 10/10/2019 [...] patient or by statute hierarchy) Care Teams Director Media Relationship Specialty Start Date End Date Gregory Rausch MD [address] [facility] [place] [address] PCP - General Family Medicine 02/12/20 documented as of this encounter
--- OUTSIDE RECORDS SUMMARY | 2023-10-27 12:14 | External Medical Summary | Summary of Care ---
Author Name Unknown Organization [facility] Address [address] [place] [address] Phone [phone] Care Team Providers Care Shirt Closer Name Role Phone Gregory Rausch MD Primary Care Provider [phone] Reason for Visit * Reason Onset Date Comments Medication Question 08/30/2023 Encounter Details Date Type Department Care Team (Late st Contact Info) Description 08/30/2023 Telephone Family Practice [facility] [address] [place] [address] Gregory Rausch MD [address] [place] [address] Medication Question Allergies Active Allergy Reactions Criticality Noted Date Comments Adhesive Tape 07/02/2017 Can tolerate band-aids Glycerin Other (Please comment) 03/12/2008 Topical agents with glycein-burning & itching Lactose 12/09/2014 Dairy - gas Lisinopril Cough 01/21/2010 Monosodium Glutamate Edema Other 03/12/2008 Hands and feet Penicillins Rash 11/14/2007 documented as of this encounter (statuses as of 08/31/2023) Medications Medication Sig Dispensed Refills Start Date [...] hypoglycemia E11.9 100 Tab 3 1 Active kontoblickToWiztango Verio w/Device Kit Use up to 4 times a day E11.9 1 Kit 0 2 Active kontoblickTouch Delica Lancets 33G TEST 4 TIMES DAILY [...] insulin pump 1 Kit 0 3 Active metFORMIN HCl 850 MG Oral Tablet (Glucophage) TAKE 1 TABLET BY MOUTH TWICE A DAY WITH BREAKFAST AND DINNER 180 Tablet 3 3 Active Additional Information Patient not taking.Reported on 08/03/2023 Dexcom G6 SensorIndications:Typ e 2 diabetes mellitus [...] A1c goal of less than 7.0% ([facility]),Type 2 diabetes mellitus with diabetic mononeuropathy, with long-term current use of insulin ([facility]),Type 2 diabetes mellitus with both eyes affected by mild nonproliferative retinopathy and macular edema, with long-term current use of insulin ([facility]),Type 2 diabetes mellitus with stage 3a chronic kidney disease, with long-term current use of insulin ([facility]) Inject 0.75 mL under the skin once a week. 9 mL 3 3 Active Fluticasone Propionate 50 MCG/ACT Nasal Suspension (Flonase)Indications: Dizziness Administer 2 Sprays into each nostril in the morning. 16 g 3 3 Active metOLazone 2.5 MG Oral Tablet (Zaroxolyn)Indication s:Acute on chronic heart failure with preserved ejection fraction (HFpEF) ([facility]) One tablet one morning twice [...] ER 10 MEQ Oral Tablet Extended ReleaseIndications:Ac [place] on chronic heart failure with preserved ejection fraction (HFpEF) ([facility]) Take 1 Tablet by mouth [...] A1c goal of less than 7.0% ([facility]),Type 2 diabetes mellitus with stage 3a chronic kidney disease, with long-term current use of insulin ([facility]) Inject 30 Units under the skin at bedtime. 6 mL 2 3 Active NovoLOG FlexPen 100 UNIT/ML Subcutaneous Solution Pen-injector (insulin aspart)Indications:Ty pe 2 diabetes mellitus with hemoglobin A1c goal of less than 7.0% ([facility]),Type 2 diabetes mellitus with stage 3a chronic kidney disease, with long-term current use of insulin ([facility]) Injected under the skin BEFORE MEALS, 3 times per day: 2 units per 50 when glucose is over 200 units. TDD: 50. ICD10: E11.9. 15 mL 2 3 Active BD Pen Needle Short U/F 31G X 8 MMIndications:Type 2 diabetes mellitus with hemoglobin A1c goal of less than 7.0% ([facility]),Type 2 diabetes mellitus with stage 3a chronic kidney disease, with long-term current use of insulin ([facility]) Use with insulin 4 times daily 400 Each 3 3 Active metFORMIN HCl 1000 MG Oral Tablet (Glucophage) Take 1 Tablet by mouth 2 times a day with morning and evening meals. 0 Active Gaviscon 80-14.2 MG Oral Tablet Chewable (Alum Hydroxide-Mag Trisilicate) Take by mouth as needed. 0 Active Nystatin 352506 UNIT/GM External Powder (Nystop)Indications:C andidal intertrigo APPLY TOPICALLY TO AFFECTED AREA 3 TIMES A DAY. APPLY TO AFFECTED AREAS 60 g 1 3 Active Atorvastatin Calcium 40 MG Oral Tablet (Lipitor)Indications: Heart failure, systolic, due to idiopathic cardiomyopathy ([facility]),S/P aortic valve replacement,HTN, goal below [...] Skin. Apply to face 420 g 0 1 08/30/20 23 Discontinu ed(Refill) documented as of this encounter (statuses as of 08/31/2023) Active Problems Problem Noted Date Diagnosed Date [...] eye 09/28/2020 Coronary artery disease invo lving [place] coronary artery of [place] heart without angina pectoris 12/16/2019 Last Assessment [...] as of this encounter (statuses as of 08/31/2023) Resolved Problems Problem Noted Date Diagnosed Date [...] Muscle tension headache 02/01/201707/26 Depression with anxiety 12/21/20162018 Ventral hernia without obstr uction or gangrene [...] 12/21/2016 Diabetes mellitus 01/05/2014 12/21/2016 LEYVA RESEARCH OTHER*[id number] 01/05/2014 12/21/2016 Axillary pain 11/03/2013 12/21/2016 Obesity, [...] 12/21/2016 FOLLOWING SURGERY, UNSPECIFI ED ([facility] BSO 08/25/2011) 08/26/2011 12/21/2016 ADVANCE DIRECTIVE INFORMATION 04/17/2011 12/21/2016 Overview: Yes, Patient instructed to provide copy of advance directive for provider to review and to be scanned into Electronic Medical Record ADVANCE DIRECTIVE INFORMATION 03/01/2011 12/21/2016 Overview: Yes, Patient instructed to provide copy of advance directive for provider to review and to be scanned into Electronic Medical Record [facility] V710 Clinical Trial*[id number] 12/22/2010 04/14/2011 S/P aortic valve replacement 12/01/2010 08/26/2011 S/P AORTIC VALVE REPLACEMENT - #25 pericardial Mc valve 11/01/2010 06/28/2018 Overview: Aortic valve replacement with #25 pericardial Mc valve, model 2800TFX, serial number [id number] (Dr. Walker) [facility] V710 Clinical Trial*[id number] 10/18/2010 11/21/2010 Body mass index (BMI) of [...] as of this encounter (statuses as of 08/31/2023) Immunizations Name Administration Dates Next Due COVID-19 mRNA, LNP-s, No Pre serve, 2-Dose Series (Moderna) 10/25/2021,02/16/2021,01/18/2021 HEP A - Hepatitis A (Adult > 18 yrs) 06/07/2018, 12/05/2017 Hepatitis B, 20+ yrs 06/07/2018,01/08/20 18,12/05/2017,06/15,10/27/2013,09/12/2013 Pneumococcal Conjugate Vacci ne, 20-valent ([id number]) 06/22/2023 Pneumococcal Polysaccharide PPV23 (Pneumovax) 01/02/2008 SEASONAL INFLUENZA, PF, 6 M & Above, IM , (FLULAVAL or FLUZONE) 06/22/2023,05/25/2021,07/14/2020 Seasonal Influenza, QUAD, wi th Preserv, [...] encounter Miscellaneous Notes * Telephone Encounter - Sommer Puente PHARM Tech - 08/31/2023 10:18 AM EST Pharmacy called stating pt was in Rehab and was put on lopressor 25 mg twice daily and would like to continue Please advise Thank you, Sommer Puente, [facility] Telephone Information Clerk II [facility] Pharm[facility] Services([facility])(Formerly Telepharmacy) 08/31/2023,10:19 AM * Addendum Note - Karina Fierro LPN - 08/31/2023 9:36 AM ESTAddended by: KARINA FIERRO on: 08/31/2023 09:36 AM Modules accepted: Orders * Telephone Encounter - Karina Fierro LPN - 08/31/2023 9:35 AM EST Pending Prescriptions: Disp Refills Metoprolol Tartrate 25 MG Oral Tablet (Lo*60 Tab*0 Sig: Take 1 Tablet by mouth in the morning and 1 Tablet before bedtime. Last Visit: 07/31/2023 (in office), Visit date not found (telemedicine) Next Visit: 02/04/2024 Last date the medication was ordered: Ok to refill? Med was discontinued. Patient Active Problem List Diagnosis Code Dyslipidemia [...] placement Z95.5 Schizoaffective disorder, bipolar type ([facility]) F25.0 Medical marijuana use Z79.899 Coronary artery disease involving [place] coronary artery of [place] heart without angina pectoris I25.10 Cystoid macular edema of right eye H35.351 Chronic kidney disease, stage 3a N18.31 Type 2 diabetes mellitus with stage 3a chronic kidney disease, with long-term current use of insulin ([facility]) E11.22, N18.31, Z79.4 Type 2 diabetes mellitus with both eyes affected by mild nonproliferative retinopathy and macular edema, with long-term current use of insulin ([facility]) E11.3213, Z79.4 Type 2 diabetes mellitus with diabetic peripheral angiopathy without gangrene ([facility]) E11.51 Obesity, Class I, BMI 30.0-34.9 (see actual BMI) E66.9 Labs: Lab Results Component Value Date/Time CREAT [...] AM CREATININE-OUTSIDE LAB 0.80 08/02/2023 12:00 AM Lab Results Component Value Date/Time POTASSIUM (G-[facility]) 3.7 11/03/2013 06:40 PM POTASSIUM - [facility] 4.0 07/31/2023 11:34 AM POTASSIUM - [facility] 4.8 09/07/2020 10:58 AM POTASSIUM POCT - [facility] 3.2 (L) 11/06/2017 02:39 PM POTASSIUM, WHOLE BLOOD - [facility] 3.8 06/06/2023 08:30 PM POTASSIUM, WHOLE BLOOD - [facility] 4.3 11/02/2010 09:00 AM POTASSIUM, WHOLE BLOOD - OUTSIDE LAB 4.9 (H) 06/25/2023 09:10 AM POTASSIUM-OUTSIDE LAB 3.0 (A) 08/02/2023 12:00 AM Lab Results Component Value Date/Time TSH - [facility] 0.01 (L) 06/06/2023 08:30 PM TSH - [facility] 2.41 12/09/2019 01:49 PM TSH-ULTRA ([facility]) 4.426 11/04/2013 02:10 AM Lab Results Component Value Date/Time LDL CHOLESTEROL (CALCULATED) - [facility] 32 08/30/2018 04:00 PM LDL CHOLESTEROL (CALCULATED) - [facility] 39 03/21/2017 10:24 AM LDL CHOLESTEROL (DIRECT MEASURE) - [facility] 52 04/09/2023 01:44 PM LDL CHOLESTEROL (DIRECT MEASURE) - [facility] 34 02/13/2023 10:38 AM LDL CHOLESTEROL (DIRECT MEASURE) - [facility] 30 09/07/2020 10:58 AM LDL CHOLESTEROL (DIRECT MEASURE) - [facility] NOT APPLICABLE 08/30/2018 04:00 PM LDL CHOLESTEROL (DIRECT MEASURE) - [facility] NOT APPLICABLE 12/21/2016 09:47 AM LDL CHOLESTEROL (DIRECT MEASURE) - [facility] 55 01/15/2013 12:19 PM LDL- CHOL ([facility]) 40 11/04/2013 05:25 AM Lab Results Component Value Date/Time ALT - [facility] 9 (L) 07/31/2023 11:34 AM ALT - [facility] 20 09/07/2020 10:58 AM ALT-OUTSIDE LAB 25 07/17/2017 12:00 AM Hemoglobin AIC Results: Lab Results Component Value Date/Time HEMOGLOBIN A1C (G-[facility]) 8.6 (H) 11/04/2013 05:25 AM HEMOGLOBIN A1C - [facility] 6.3 (H) 07/31/2023 11:34 AM HEMOGLOBIN A1C - [facility] 7.9 (H) 04/09/2023 01:44 PM HEMOGLOBIN A1C - [facility] 9.2 (H) 02/13/2023 10:38 AM HEMOGLOBIN A1C - [facility] 8.3 (H) 12/09/2019 01:49 PM HEMOGLOBIN A1C - [facility] 8.1 (H) 10/14/2019 06:38 AM HEMOGLOBIN A1C - [facility] 8.0 (H) 03/14/2019 04:12 PM * Telephone Encounter - Arina Simons CPhT - 08/30/2023 12:48 PM EST Patient requesting refills for Metoprolol Tartrate 25 MG Oral Tablet (Lopressor) . Upon chart review, medication is listed as as of 08/03/23 . Please advise if you wish to continue this therapy for the patient. Thank you, Arina Simons [employer] Leader [facility] Services ([facility]) (formerly Telepharmacy) 08/30/2023, 12:48 PM documented in this encounter Plan of Treatment Upcoming Encounters Date Type Department Care Team (Late st Contact Info) Description 09/06/2023 4:00 PM EST Home Visit [facility] at [facility], [facility] [address] [place] [address] Jaycee Sorto RN [address] [place] [address] 09/11/2023 1:40 PM EST Office Visit Pharmacy, [facility] [address] [facility] [place] [address] Pharmacist1, [facility] [address] [facility] [place] [address] 10/15/2023 11:00 AM EST Office Visit Cardiology, [facility] [address] [place] [address] Feli Teague PA-C [address] [place] [address] 02/04/2024 10:20 AM EDT Office Visit Family Practice [facility] [address] [place] [address] Gregory Rausch MD [address] [place] [address] Scheduled Procedures Name Priority Associated Diagnoses Date/Ti [...] Additional history exists CKD PHOS USE SMARTSET 47702 06/18/202405/26, 06/16/2023, 06/15/2023, Additional history exists CKD HGB USE SMARTSET 61580 07/31/202407/31, 07/31/2023, 06/29/2023, Additional history exists COLONOSCOPY-EVERY [...] this encounter Medical Devices Implanted Type Area Certified Lactation Counselor Device Identifier Shelf Expiration Date Model / Serial / Lot Cath Roselia Single Lumen - [id number] Implanted:Qty : 1 on 03/12/2008 at OR [facility] Left: Chest [employer] *DO NOT USE* 07/25/2012 21-4053-24 / / [id number] Valve Tarsha Aortic [id number] - [id number] Implanted:Qty : 1 on 11/01/2010 at OR [facility] N/A: Heart [employer] D[employer]EL 05/20/2012 2800TFX-25 / / [id number] Mesh Soft [id number] - [id number] Implanted:Qty : 1 on 10/10/2019 by Gigi Hendrickson MD at [place] [facility] N/A: Abdomen CR BARD : DAVOL [id number] 05/21/2024 [id number] / / [id number] Lens 22.5 Sn60wf - [id number] - [id number] Implanted:Qty : 1 on 09/15/2020 by Renaldo Cook, Cece Acosta MD at [facility] Right: Eye IVA : SURGICAL [id number] 05/13/2025 SN60 WF.225 / [id number] / [id number] documented as of this encounter Advance [...] the patient have Health Care Power of Potato Loader? No Full Code 10/10/2019 8:40 AM 10/10/2019 [...] patient or by statute hierarchy) Care Teams Shirt Closer Relationship Specialty Start Date End Date Gregory Rausch MD [address] [place] [address] PCP - General Family Medicine 02/12/20 documented as of this encounter
--- OUTSIDE RECORDS SUMMARY | 2023-10-27 12:14 | External Medical Summary | Summary of Care ---
Author Name Unknown Organization [facility] Address [address] [place] [address] Phone [phone] Care Team Providers Care Assistant Film Editor Name Role Phone Deon Rausch MD Primary Care Provider [phone] Reason for Visit * Reason Onset Date Comments Medication Question 08/30/2023 Encounter Details Date Type Department Care Team (Late st Contact Info) Description 08/30/2023 Telephone Family Practice [facility] [address] [place] [address] Deon Rausch MD [address] [place] [address] Medication Question Allergies Active Allergy Reactions Criticality Noted Date Comments Adhesive Tape 07/02/2017 Can tolerate band-aids Glycerin Other (Please comment) 03/12/2008 Topical agents with glycein-burning & itching Lactose 12/09/2014 Dairy - gas Lisinopril Cough 01/21/2010 Monosodium Glutamate Edema Other 03/12/2008 Hands and feet Penicillins Rash 11/14/2007 documented as of this encounter (statuses as of 09/01/2023) Medications Medication Sig Dispensed Refills Start Date [...] E11.9 100 Tab 3 07/06/20 21 Active Spot On SciencesTouch Verio w/Device Kit Use up to 4 times a day E11.9 1 Kit 0 02/11/20 22 Active Spot On SciencesTouch Delica Lancets 33G TEST 4 TIMES DAILY DIRECTED, E11.9 400 Each 3 02/11/20 22 Active Melatonin 10 MG Oral CapsuleIndications:s leep Take 1 Capsule by mouth at bedtime. 0 Active Ammonium Lactate 12 % External Lotion (Lac-Hydrin) Apply to both feet once daily. 400 g 3 11/10/19 23 Active Magnesium Oxide 400 (240 Mg) MG [...] pump 1 Kit 0 01/12/20 23 Active Dexcom G6 SensorIndications:Ty pe 2 diabetes mellitus with hemoglobin A1c goal of less than 7.0% (HCC) Use as directed. Use 1 sensor every 10 days E 11.9 9 Each 01/17/20 23 Active Dexcom G6 TransmitterIndicatio ns:Type 2 diabetes mellitus with hemoglobin A1c goal of less than 7.0% (HCC) Use as directed. Use 1 transmitter every 90 days E 11.9 1 Each 01/17/20 23 Active Ozempic (2 MG/DOSE) 8 MG/3ML Subcutaneous Solution Pen-injector (Semaglutide (2 MG/DOSE))Indications :Type 2 diabetes mellitus with hemoglobin A1c goal of less than 7.0% (HCC),Type 2 diabetes mellitus with diabetic mononeuropathy, with long-term current use of insulin (HCC),Type 2 diabetes mellitus with both eyes affected by mild nonproliferative retinopathy and macular edema, with long-term current use of insulin ([facility]),Type 2 diabetes mellitus with stage 3a chronic kidney disease, with long-term current use of insulin ([facility]) Inject 0.75 mL under the skin once a week. 9 mL 3 02/23/20 23 Active Fluticasone Propionate 50 MCG/ACT Nasal Suspension (Flonase)Indications :Dizziness Administer 2 Sprays into each nostril in the morning. 16 g 3 03/01/20 23 Active metOLazone 2.5 MG Oral Tablet (Zaroxolyn)Indicatio ns:Acute on chronic heart failure with preserved ejection fraction (HFpEF) ([facility]) One tablet one morning twice per week (Sunday and Sunday), 30 minutes prior to torsemide dose 24 Tablet 3 03/12/20 23 Active Additional Information Patient not taking.Reported on [...] heart failure with preserved ejection fraction (HFpEF) ([facility]) Take 1 Tablet by mouth in the morning and 1 Tablet before bedtime. 180 Tablet 3 07/26/20 23 Active Venelex External Ointment Apply topically to affected area 2 times a day. 0 06/29/20 23 Active NovoLOG FlexPen 100 UNIT/ML Subcutaneous Solution Pen-injector (insulin aspart) Injected under the skin BEFORE MEALS, 3 times per day: 2 units per 50 when glucose is over 200 units. TDD: 50. ICD10: E11.9. 15 mL 2 07/31/20 23 Active Tresiba FlexTouch 200 UNIT/ML Subcutaneous Solution Pen-injector (Insulin Degludec)Indications :Type 2 diabetes mellitus with hemoglobin A1c goal of less than 7.0% ([facility]),Type 2 diabetes mellitus with stage 3a chronic kidney disease, with long-term current use of insulin ([facility]) Inject 30 Units under the skin at bedtime. 6 mL 2 07/31/20 Active NovoLOG FlexPen 100 UNIT/ML Subcutaneous Solution Pen-injector (insulin aspart)Indications:T ype 2 diabetes mellitus with hemoglobin A1c goal of less than 7.0% ([facility]),Type 2 diabetes mellitus with stage 3a chronic kidney disease, with long-term current use of insulin ([facility]) Injected under the skin BEFORE MEALS, 3 times per day: 2 units per 50 when glucose is over 200 units. TDD: 50. ICD10: E11.9. 15 mL 2 07/31/20 Active BD Pen Needle Short U/F 31G X 8 MMIndications:Type 2 diabetes mellitus with hemoglobin A1c goal of less than 7.0% ([facility]),Type 2 diabetes mellitus with stage 3a chronic kidney disease, with long-term current use of insulin ([facility]) Use with insulin 4 times daily 400 Each 3 07/31/20 Active Gaviscon 80-14.2 MG Oral Tablet Chewable (Alum Hydroxide-Mag Trisilicate) Take by mouth as needed. 0 Active Nystatin 992588 UNIT/GM External Powder (Nystop)Indications: Candidal intertrigo APPLY TOPICALLY TO AFFECTED AREA 3 TIMES A DAY. APPLY TO AFFECTED AREAS 60 g 1 08/20/20 Active Atorvastatin Calcium 40 MG Oral Tablet (Lipitor)Indications :Heart failure, systolic, due to idiopathic cardiomyopathy ([facility]),S/P aortic valve replacement,HTN, goal below 140/80,Dyslipidemia, goal LDL below 70 TAKE 1 TABLET BY MOUTH DAILY. TO PREVENT HEART ATTACK/STROKE, PROTECT KIDNEY, AND CHOLESTEROL 90 Tablet 1 08/20/20 Active Meclizine HCl 25 MG Oral Tablet (Antivert)Indication s:Muscle tension headache TAKE 2 TABLETS BY MOUTH TWICE A DAY 360 Tablet 3 08/20/20 Active Metoprolol Tartrate 25 MG Oral Tablet (Lopressor) Take 1 Tablet by mouth in the morning and 1 Tablet before bedtime. 60 Tablet 2 09/01/20 Active Aquaphor External Ointment Apply topically to affected area as needed for Dry Skin. Apply to face 420 g 0 06/14/20 21 023 Discontinued(Re fill) metFORMIN HCl 850 MG Oral Tablet (Glucophage) TAKE 1 TABLET BY MOUTH TWICE A DAY WITH BREAKFAST AND DINNER 180 Tablet 3 01/12/20 23 023 Discontinued Metoprolol Tartrate 25 MG Oral Tablet (Lopressor) Take 1 Tablet by mouth in the morning and 1 Tablet before bedtime. 60 Tablet 0 06/21/20 23 023 Discontinued(Re fill) metFORMIN HCl 1000 MG Oral Tablet (Glucophage) Take 1 Tablet by mouth 2 times a day with morning and evening meals. 0 023 Discontinued documented as of this encounter (statuses as of 09/01/2023) Active Problems Problem Noted Date Diagnosed Date [...] eye 09/28/2020 Coronary artery disease invo lving soboba coronary artery of soboba heart without angina pectoris 12/16/2019 Last Assessment [...] as of this encounter (statuses as of 09/01/2023) Resolved Problems Problem Noted Date Diagnosed Date [...] 12/21/2016 Diabetes mellitus 01/05/2014 12/21/2016 LEYVA RESEARCH OTHER*[id number] 01/05/2014 12/21/2016 Axillary pain 11/03/2013 12/21/2016 Obesity, [...] 12/21/2016 FOLLOWING SURGERY, UNSPECIFI ED ([facility] BSO 08/25/2011) 08/26/2011 12/21/2016 ADVANCE DIRECTIVE INFORMATION 04/17/2011 12/21/2016 Overview: Yes, Patient instructed to provide copy of advance directive for provider to review and to be scanned into Electronic Medical Record ADVANCE DIRECTIVE INFORMATION 03/01/2011 12/21/2016 Overview: Yes, Patient instructed to provide copy of advance directive for provider to review and to be scanned into Electronic Medical Record [facility] V710 Clinical Trial*[id number] 12/22/2010 04/14/2011 S/P aortic valve replacement 12/01/2010 08/26/2011 S/P AORTIC VALVE REPLACEMENT - #25 pericardial Mc valve 11/01/2010 06/28/2018 Overview: Aortic valve replacement with #25 pericardial Mc valve, model 2800TFX, serial number [id number] (Dr. Walker) [facility] V710 Clinical Trial*[id number] 10/18/2010 11/21/2010 Body mass index (BMI) of [...] as of this encounter (statuses as of 09/01/2023) Immunizations Name Administration Dates Next Due COVID-19 mRNA, LNP-s, No Pre serve, 2-Dose Series (Moderna) 10/25/2021,02/16/2021,01/18/2021 HEP A - Hepatitis A (Adult > 18 yrs) 06/07/2018, 12/05/2017 Hepatitis B, 20+ yrs 06/07/2018,01/08/20 18,12/05/2017,06/15,10/27/2013,09/12/2013 Pneumococcal Conjugate Vacci ne, 20-valent ([id number]) 06/22/2023 Pneumococcal Polysaccharide PPV23 (Pneumovax) 01/02/2008 SEASONAL [...] as of this encounter Miscellaneous Notes * Addendum Note - Deon Rausch MD - 09/01/2023 11:23 AM ESTAddended by: DEON RAUSCH on: 09/01/2023 11:23 AM Modules accepted: Orders * Addendum Note - Karina Fierro LPN - 08/31/2023 10:45 AM ESTAddended by: KARINA FIERRO on: 08/31/2023 10:45 AM Modules accepted: Orders * Telephone Encounter - Sommer Puente PHARM Tech - 08/31/2023 10:18 AM EST Pharmacy called stating pt was in Rehab and was put on lopressor 25 mg twice daily and would like to continue Please advise Thank you, Sommer Puente [facility] Teacher Vocational Training II [facility] Pharmacy Services([facility])(Formerly Telepharmacy) 08/31/2023,10:19 AM * Addendum Note - Kairna Fierro LPN - 08/31/2023 9:36 AM ESTAddended [...] hemoglobin A1c goal of less than 7.0% ([facility]) E11.9 DANYELLE on CPAP G47.33 Acquired hypothyroidism [...] stent placement Z95.5 Schizoaffective disorder, bipolar type ([facility]) F25.0 Medical marijuana use Z79.899 Coronary artery disease involving soboba coronary artery of soboba heart without angina pectoris I25.10 Cystoid macular edema of right eye H35.351 Chronic kidney disease, stage 3a N18.31 Type 2 diabetes mellitus with stage 3a chronic kidney disease, with long-term current use of insulin ([facility]) E11.22, N18.31, Z79.4 Type 2 diabetes mellitus with both eyes affected by mild nonproliferative retinopathy and macular edema, with long-term current use of insulin ([facility]) E11.3213, Z79.4 Type 2 diabetes mellitus with diabetic peripheral angiopathy without gangrene ([facility]) E11.51 Obesity, Class I, BMI [...] for the patient. Thank you, Arina Simons Telegraph Equipment Maintainer [facility] ([facility]) (formerly Telepharmacy) 08/30/2023, 12:48 PM documented in this encounter Plan of Treatment Upcoming Encounters Date Type Department Care Team (Late st Contact Info) Description 09/06/2023 4:00 PM EST [facility] [address] [place] [address] Jaycee Sorto RN [address] [place] [address] 09/11/2023 1:40 PM EST Office Visit Pharmacy, [facility] [address] [place] [address] Pharmacist1, [facility] [address] [facility] [place] [address] 10/15/2023 11:00 AM EST Office Visit Cardiology, [facility] [address] [place] [address] Feli Teague PA-C [address] [place] [address] 02/04/2024 10:20 AM EDT Office Visit Family Practice [facility] [address] [facility] [place] [address] Deon Rausch MD [address] [facility] [place] [address] Scheduled Procedures Name Priority Associated Diagnoses Date/Ti [...] Additional history exists CKD PHOS USE SMARTSET 17343 06/18/202405/26, 06/16/2023, 06/15/2023, Additional history exists CKD HGB USE SMARTSET 78520 07/31/202407/31, 07/31/2023, 06/29/2023, Additional history exists COLONOSCOPY-EVERY [...] this encounter Medical Devices Implanted Type Area Advisor To Command In Combat Device Identifier Shelf Expiration Date Model / Serial / Lot Cath Roselia Single Lumen - [id number] Implanted:Qty : 1 on 03/12/2008 at OR [facility] Left: Chest [employer] *DO NOT USE* 07/25/2012 21-4053-24 / / [id number] Valve Tarsha Aortic [id number] - [id number] Implanted:Qty : 1 on 11/01/2010 at OR [facility] N/A: Heart MC [employer] DANIEL 05/20/2012 2800TFX-25 / / [id number] Mesh Soft [id number] - [id number] Implanted:Qty : 1 on 10/10/2019 by Gigi Hendrickson MD at [place] [facility] [place] N/A: Abdomen CR BARD : DAVOL [id number] 05/21/2024 [id number] / / [id number] Lens 22.5 Sn60wf - [id number] - [id number] Implanted:Qty : 1 on 09/15/2020 by Renaldo Cook, Cece Acosta MD at OR [facility] Right: Eye IVA : SURGICAL [id number] 05/13/2025 SN60 WF.225 / [id number] / [id number] documented as of this encounter Advance [...] the patient have Health Care Power of Boat Repairer? No Full Code 10/10/2019 8:40 AM 10/10/2019 [...] patient or by statute hierarchy) Care Teams Assistant Film Editor Relationship Specialty Start Date End Date Deon Rausch MD [address] [place] [address] PCP - General Family Medicine 02/12/20 documented as of this encounter
--- OUTSIDE RECORDS SUMMARY | 2023-10-27 12:14 | External Medical Summary | Summary of Care ---
Author Name Unknown Organization [facility] Address [address] [place] [address] Phone [phone] Care Team Providers Care Frame Feeder Name Role Phone Gregory Rausch MD Primary Care Provider [phone] Reason for Visit * Reason Onset Date Comments Medication Question 08/30/2023 Encounter Details Date Type Department Care Team (Late st Contact Info) Description 08/30/2023 Telephone Family Practice [facility] [address] [place] [address] Gregory Rausch MD [address] [...] hypoglycemia E11.9 100 Tab 3 1 Active [employer] Verio w/Device Kit Use up to 4 times a day E11.9 1 Kit 0 2 Active Mezeo SoftwareTouch Delica Lancets 33G TEST 4 TIMES DAILY [...] ER 10 MEQ Oral Tablet Extended ReleaseIndications:[place] chronic heart failure with preserved ejection [...] current use of insulin ([facility]) Injected under the skin BEFORE MEALS, 3 [...] by mouth as needed. 0 Active Nystatin 860410 UNIT/GM External Powder (Nystop)Indications:C andidal intertrigo APPLY [...] eye 09/28/2020 Coronary artery disease invo lving [place] coronary artery of [place] heart without angina pectoris 12/16/2019 Last Assessment [...] 12/21/2016 Diabetes mellitus 01/05/2014 12/21/2016 LEYVA RESEARCH OTHER*[id number] 01/05/2014 12/21/2016 Axillary pain 11/03/2013 12/21/2016 Obesity, [...] FOLLOWING SURGERY, UNSPECIFI ED ([facility] BSO 08/25/2011) 08/26/2011 12/21/2016 ADVANCE DIRECTIVE INFORMATION 04/17/2011 12/21/2016 Overview: Yes, Patient instructed to provide copy of advance directive for provider to review and to be scanned into Electronic Medical Record ADVANCE DIRECTIVE INFORMATION 03/01/2011 12/21/2016 Overview: Yes, Patient instructed to provide copy of advance directive for provider to review and to be scanned into Electronic Medical Record [facility] V710 Clinical Trial*[id number] 12/22/2010 04/14/2011 S/P aortic valve replacement 12/01/2010 08/26/2011 S/P AORTIC VALVE REPLACEMENT - #25 pericardial Mc valve 11/01/2010 06/28/2018 Overview: Aortic valve replacement with #25 pericardial Mc valve, model 2800TFX, serial number [id number] (Dr. Walker) [facility] V710 Clinical Trial*[id number] 10/18/2010 11/21/2010 Body mass index (BMI) of [...] 06/07/2018,01/08/20 18,12/05/2017,06/15,10/27/2013,09/12/2013 Pneumococcal Conjugate Vacci ne, 20-valent ([id number]) 06/22/2023 Pneumococcal Polysaccharide PPV23 (Pneumovax) 01/02/2008 SEASONAL [...] encounter Miscellaneous Notes * Addendum Note - Karina Fierro LPN - 08/31/2023 10:45 AM ESTAddended by: KARINA FIERRO on: 08/31/2023 10:45 AM Modules accepted: Orders * Telephone Encounter - Sommer Puente PHARM Tech - 08/31/2023 10:18 AM EST Pharmacy called stating pt was in Rehab and was put on lopressor 25 mg twice daily and would like to continue Please advise Thank you, Sommer Puente, [facility] It Applications Developer II Centralized Clinical Pharmacy Services([facility])(Formerly Telepharmacy) 08/31/2023,10:19 [...] of less than 7.0% ([facility]) E11.9 DANYELLE on CPAP G47.33 Acquired hypothyroidism [...] marijuana use Z79.899 Coronary artery disease involving [place] coronary artery of [place] heart without angina pectoris I25.10 Cystoid macular [...] for the patient. Thank you, Arina Simons Home Companion [facility] ([facility]) (formerly Telepharmacy) 08/30/2023, 12:48 PM documented in this encounter Plan of Treatment Upcoming Encounters Date Type Department Care Team (Late st Contact Info) Description 09/06/2023 4:00 PM EST [facility], [facility] [address] [place] [address] Jaycee Sorto, RN [address] [place] [address] 09/11/2023 1:40 PM EST Office Visit Pharm[facility] [address] [place] [address] Pharmacist1, [facility] [address] [facility] [place] [address] 10/15/2023 11:00 AM EST Office Visit Cardiology, [facility] [address] [facility] [place] [address] Feli Teague, [employer] [address] [place] [address] 02/04/2024 10:20 AM EDT Office Visit Family [facility] [address] [place] [address] Gregory Rausch MD [address] [place] [address] Scheduled Procedures Name Priority Associated Diagnoses Date/Ti [...] Additional history exists CKD PHOS USE SMARTSET 49140 06/18/202405/26, 06/16/2023, 06/15/2023, Additional history exists CKD HGB USE SMARTSET 09351 07/31/202407/31, 07/31/2023, 06/29/2023, Additional history exists COLONOSCOPY-EVERY [...] this encounter Medical Devices Implanted Type Area Managing Partner Device Identifier Shelf Expiration Date Model / Serial / Lot Cath Roselia Single Lumen - [id number] Implanted:Qty : 1 on 03/12/2008 at OR [facility] Left: Chest [employer] *DO NOT USE* 07/25/2012 21-4053-24 / / [id number] Valve Tarsha Aortic [id number] - [id number] Implanted:Qty : 1 on 11/01/2010 at OR [facility] N/A: Heart MC [employer]IF[employer]el[employer] DANIEL 05/20/2012 2800TFX-25 / / [id number] Mesh Soft [id number] - [id number] Implanted:Qty : 1 on 10/10/2019 by Gigi Hendrickson MD at [place] [facility] [place] N/A: Abdomen CR BARD : DAVOL [id number] 05/21/2024 [id number] / / [id number] Lens 22.5 Sn60wf - [id number] - [id number] Implanted:Qty : 1 on 09/15/2020 by Renaldo Cook, Cece Acosta MD at OR [facility] Right: Eye IVA : SURGICAL [id number] 05/13/2025 SN60 WF.225 / [id number] / [id number] documented as of this encounter Advance [...] the patient have Health Care Power of Publishing Specialist? No Full Code 10/10/2019 8:40 AM 10/10/2019 5:53 PM This order reflects the patients wishes and were consensually agreed upon. Full Code 11/06/2017 4:55 PM 11/07/2017 7:14 PM This order reflects the patients wishes and were consensually agreed upon. Healthcare Agents on File Name Relationship Healthcare Agent Relationshi p Communication [facility]igi [facility]ierrez [facility] Child Health Care Repr esentative (appointed verbally by patient or by statute hierarchy) Care Teams Frame Feeder Relationship Specialty Start Date End Date Gregroy Rausch MD [address] [place] [address] PCP - General Family Medicine 02/12/20 documented as of this encounter
--- OUTSIDE RECORDS SUMMARY | 2023-10-27 12:14 | External Medical Summary | Summary of Care ---
Author Name Unknown Organization [facility] Address [address] [place] [address] Phone [phone] Care Team Providers Care Field Recorder Name Role Phone Deon Rausch MD Primary Care Provider [phone] Reason for Visit * Reason Onset Date Comments Medication Refill 08/31/2023 Encounter Details Date Type Department Care Team (Late st Contact Info) Description 08/31/2023 Refill Family Practice [facility] [address] [facility] [place] [address] Deon Rausch MD [address] [facility] [place] [address] Allergies Active [...] E11.9 100 Tab 3 07/06/20 21 Active The LocalTouch Verio w/Device Kit Use up to 4 times a day E11.9 1 Kit 0 02/11/20 22 Active The LocalTouch Delica Lancets 33G TEST 4 TIMES DAILY [...] current use of insulin ([facility]),Type 2 diabetes mellitus with stage 3a chronic kidney disease, with long-term current use of insulin ([facility]) Inject 0.75 mL under the skin once a week. 9 mL 3 02/23/20 23 Active Fluticasone Propionate 50 MCG/ACT Nasal Suspension (Flonase)Indications :Dizziness Administer 2 Sprays into each nostril in the morning. 16 g 3 03/01/20 23 Active metOLazone 2.5 MG Oral Tablet (Zaroxolyn)Indicatio ns:Acute on chronic heart failure with preserved ejection fraction (HFpEF) ([facility]) One tablet one morning twice per [...] preserved ejection fraction (HFpEF) ([facility]) Take 1 Tablet by mouth in [...] of less than 7.0% ([facility]),Type 2 diabetes mellitus with stage 3a chronic kidney disease, with long-term current use of insulin ([facility]) Inject 30 Units under the skin at bedtime. 6 mL 2 07/31/20 Active NovoLOG FlexPen 100 UNIT/ML Subcutaneous Solution Pen-injector (insulin aspart)Indications:T ype 2 diabetes mellitus with hemoglobin A1c goal of less than 7.0% ([facility]),Type 2 diabetes mellitus with stage 3a chronic kidney disease, with long-term current use of insulin ([facility]) Injected under the skin BEFORE MEALS, 3 times per day: 2 units per 50 when glucose is over 200 units. TDD: 50. ICD10: E11.9. 15 mL 2 07/31/20 Active BD Pen Needle Short U/F 31G X 8 MMIndications:Type 2 diabetes mellitus with hemoglobin A1c goal of less than 7.0% ([facility]),Type 2 diabetes mellitus with stage 3a chronic kidney disease, with long-term current use of insulin ([facility]) Use with insulin 4 times daily 400 Each 3 07/31/20 Active Gaviscon 80-14.2 MG Oral Tablet Chewable (Alum Hydroxide-Mag Trisilicate) Take by mouth as needed. 0 Active Nystatin 153296 UNIT/GM External Powder (Nystop)Indications: Candidal intertrigo APPLY TOPICALLY TO AFFECTED AREA 3 TIMES A DAY. APPLY TO AFFECTED AREAS 60 g 1 08/20/20 Active Atorvastatin Calcium 40 MG Oral Tablet (Lipitor)Indications :Heart failure, systolic, due to idiopathic cardiomyopathy ([facility]),S/P aortic valve replacement,HTN, goal below 140/80,Dyslipidemia, goal LDL below 70 TAKE 1 TABLET BY MOUTH DAILY. TO PREVENT HEART ATTACK/STROKE, PROTECT KIDNEY, AND CHOLESTEROL 90 Tablet 1 08/20/20 Active Meclizine HCl 25 MG Oral Tablet (Antivert)Indication s:Muscle tension headache TAKE 2 TABLETS BY MOUTH TWICE A DAY 360 Tablet 3 08/20/20 Active Aquaphor External Ointment Apply topically to affected area as needed for Dry Skin. Apply to face 420 g 0 08/30/20 Active metFORMIN HCl 1000 MG Oral Tablet (Glucophage) Take 1 Tablet by mouth 2 times a day with morning and evening meals. 180 Tablet 3 08/31/20 Active metFORMIN HCl 850 MG Oral Tablet (Glucophage) TAKE 1 TABLET BY MOUTH TWICE A DAY WITH BREAKFAST AND DINNER 180 Tablet 3 01/12/20 23 023 Discontinued metFORMIN HCl 1000 MG Oral Tablet (Glucophage) [...] 12/21/2016 Diabetes mellitus 01/05/2014 12/21/2016 LEYVA RESEARCH OTHER*[id number] 01/05/2014 12/21/2016 Axillary pain 11/03/2013 12/21/2016 Obesity, [...] 12/21/2016 FOLLOWING SURGERY, UNSPECIFI ED ([facility] 08/25/2011) 08/26/2011 12/21/2016 ADVANCE DIRECTIVE INFORMATION 04/17/2011 12/21/2016 Overview: Yes, Patient instructed to provide copy of advance directive for provider to review and to be scanned into Electronic Medical Record ADVANCE DIRECTIVE INFORMATION 03/01/2011 12/21/2016 Overview: Yes, Patient instructed to provide copy of advance directive for provider to review and to be scanned into Electronic Medical Record [facility] V710 Clinical Trial*[id number] 12/22/2010 04/14/2011 S/P aortic valve replacement 12/01/2010 08/26/2011 S/P AORTIC VALVE REPLACEMENT - #25 pericardial Mc valve 11/01/2010 06/28/2018 Overview: Aortic valve replacement with #25 pericardial Mc valve, model 2800TFX, serial number [id number] (Dr. Walker) [facility] V710 Clinical Trial*[id number] 10/18/2010 11/21/2010 Body mass index (BMI) of [...] 06/07/2018,01/08/20 18,12/05/2017,06/15,10/27/2013,09/12/2013 Pneumococcal Conjugate Vacci ne, 20-valent ([id number]) 06/22/2023 Pneumococcal Polysaccharide PPV23 (Pneumovax) 01/02/2008 SEASONAL [...] encounter Miscellaneous Notes * Telephone Encounter - Coby Najera [facility] - 08/31/2023 11:23 AM EST Signed Prescriptions: Disp Refills metFORMIN HCl 1000 MG Oral Tablet (Glucoph*180 Ta*3 Sig: Take 1 Tablet by mouth 2 times a day with morning and evening meals.Authorizing Provider: DEON RAUSCH User: COBY NAJERARefused Prescriptions: Disp Refills metFORMIN HCl 850 MG Oral Tablet (Glucopha*180 Ta*3 Sig: TAKE 1 TABLET BY MOUTH TWICE A DAY WITH B REAKFAST AND DINNERRefused By: COBY NAJERA for Refusal: Dose needs clarification----- * Telephone Encounter - Coby Najera RP - 08/31/2023 11:22 AM EST 08/10 MTDM "Metformin 1000mg twice daily " * Telephone Encounter - Sommer Puente PHARM Tech - 08/31/2023 10:21 AM EST Pt calling in to request a dose change on their metformin. Current dose: 875 mg Requested dose: 1000 twice daily Reason for request: was in rehab and was put on this dose Preferred pharmacy: [facility] [id number] [place] [address] Patient unwilling to speak with pharmacist at this time. Routing to pharmacist pool to advise. Thank you, Sommer Puente, [facility] Business Law Teacher II [facility])(Formerly [facility]) 08/31/2023,10:21 AM documented in this encounter Plan of Treatment Upcoming Encounters Date Type Department Care Team (Late st Contact Info) Description 09/06/2023 4:00 PM EST Home Visit [facility], [facility] [address] [place] [address] Jaycee Sorto, RN [address] [place] [address] 09/11/2023 1:40 PM EST Office Visit [facility], [facility] [address] [address] Pharmacist1, [facility] [address] [address] [address] [address] 10/15/2023 11:00 AM EST Office Visit Cardiology, [facility] [address] [place] [address] Feli Teague, [place] [address] [place] [address] 02/04/2024 10:20 AM EDT Office Visit Family Practice [facility] [address] [place] [address] Deon Rausch MD [address] [place] [address] Scheduled Procedures Name Priority Associated Diagnoses Date/Ti [...] Additional history exists CKD PHOS USE SMARTSET 13927 06/18/202405/26, 06/16/2023, 06/15/2023, Additional history exists CKD HGB USE SMARTSET 62787 07/31/202407/31, 07/31/2023, 06/29/2023, Additional history exists COLONOSCOPY-EVERY [...] this encounter Medical Devices Implanted Type Area Police Radio Dispatcher Device Identifier Shelf Expiration Date Model / Serial / Lot Cath Roselia Single Lumen - [id number] Implanted:Qty : 1 on 03/12/2008 at OR [facility] Left: Chest [employer] *DO NOT USE* 07/25/2012 21-4053-24 / / [id number] Valve Tarsha Aortic [id number] - [id number] Implanted:Qty : 1 on 11/01/2010 at OR [facility] N/A: Heart [employer] DANIEL 05/20/2012 2800TFX-25 / / [id number] Mesh Soft [id number] - [id number] Implanted:Qty : 1 on 10/10/2019 by Gigi Hendrickson MD [place] [facility] N/A: Abdomen CR BARD : DAVOL [id number] 05/21/2024 [id number] / / [id number] Lens 22.5 Sn60wf - [id number] - [id number] Implanted:Qty : 1 on 09/15/2020 by Renaldo Cook, Cece Acosta MD at [facility] Right: Eye IVA : SURGICAL [id number] 05/13/2025 SN60 WF.225 / [id number] / [id number] documented as of this encounter Advance [...] the patient have Health Care Power of Student Services Director? No Full Code 10/10/2019 8:40 AM 10/10/2019 [...] patient or by statute hierarchy) Care Teams Field Recorder Relationship Specialty Start Date End Date Deon Rausch MD [address] [place] [address] PCP - General Family Medicine 02/12/20 documented as of this encounter
--- OUTSIDE RECORDS SUMMARY | 2023-10-27 12:14 | External Medical Summary | Summary of Care ---
Author Name Unknown Organization [facility] Address [address] [place] [address] Phone [phone] Care Team Providers Care Cleaning Machine Operator Name Role Phone Gregory Rausch MD Primary Care Provider [phone] Reason for Visit * Reason Comments [facility]: Maintenance Encounter Details Date Type Department Care Team (Late st Contact Info) Description 09/06/2023 4:00 PM EST Home Visit [facility], [facility] [address] [place] [address] Jaycee Sorto, RN [address] [place] [address] Allergies Active Allergy Reactions Criticality Noted Date Comments Adhesive Tape 07/02/2017 Can tolerate band-aids Glycerin Other (Please comment) 03/12/2008 Topical agents with glycein-burning & itching Lactose 12/09/2014 Dairy - gas Lisinopril Cough 01/21/2010 Monosodium Glutamate Edema Other 03/12/2008 Hands and feet Penicillins Rash 11/14/2007 documented as of this encounter (statuses as of 09/06/2023) Medications Medication Sig Dispensed Refills Start Date [...] hypoglycemia E11.9 100 Tab 3 1 Active [place] Verio w/Device Kit Use up to 4 times a day E11.9 1 Kit 0 2 Active Figleaves.comTouch Delica Lancets 33G TEST 4 TIMES DAILY [...] A1c goal of less than 7.0% ([facility]) Use as directed. Use 1 sensor [...] A1c goal of less than 7.0% ([facility]),Type 2 diabetes mellitus with diabetic mononeuropathy, with long-term current use of insulin (HCC),Type 2 diabetes mellitus with both eyes affected by mild nonproliferative retinopathy and macular edema, with long-term current use of insulin ([facility]),Type 2 diabetes mellitus with stage 3a chronic kidney disease, with long-term current use of insulin ([facility]) Inject 0.75 mL under the skin once a week. 9 mL 3 3 Active Fluticasone Propionate 50 MCG/ACT Nasal Suspension (Flonase)Indications: Dizziness Administer 2 Sprays into each nostril in the morning. 16 g 3 3 Active metOLazone 2.5 MG Oral Tablet (Zaroxolyn)Indication s:Acute on chronic heart failure with preserved ejection fraction (HFpEF) ([facility]) One tablet one morning twice per [...] ER 10 MEQ Oral Tablet Extended ReleaseIndications:Ac manzanita on chronic heart failure with preserved ejection fraction (HFpEF) ([facility]) Take 1 Tablet by mouth in [...] A1c goal of less than 7.0% ([facility]),Type 2 diabetes mellitus with stage 3a chronic kidney disease, with long-term current use of insulin ([facility]) Inject 30 Units under the skin at bedtime. 6 mL 2 3 Active BD Pen Needle Short U/F 31G X 8 MMIndications:Type 2 diabetes mellitus with hemoglobin A1c goal of less than 7.0% ([facility]),Type 2 diabetes mellitus with stage 3a chronic kidney disease, with long-term current use of insulin ([facility]) Use with insulin 4 times daily 400 Each 3 3 Active Gaviscon 80-14.2 MG Oral Tablet Chewable (Alum Hydroxide-Mag Trisilicate) Take by mouth as needed. 0 Active Nystatin 166230 UNIT/GM External Powder (Nystop)Indications:C andidal intertrigo APPLY TOPICALLY TO AFFECTED AREA 3 TIMES A DAY. APPLY TO AFFECTED AREAS 60 g 1 3 Active Atorvastatin Calcium 40 MG Oral Tablet (Lipitor)Indications: Heart failure, systolic, due to idiopathic cardiomyopathy ([facility]),S/P aortic valve replacement,HTN, goal below 140/80,Dyslipidemia, [...] to face 420 g 0 3 Active Metoprolol Tartrate 25 MG Oral Tablet (Lopressor) Take 1 Tablet by mouth in the morning and 1 Tablet before bedtime. 60 Tablet 2 3 Active metFORMIN HCl 1000 MG Oral Tablet (Glucophage) Take 1 Tablet by mouth 2 times a day with morning and evening meals. 180 Tablet 3 3 Active Torsemide 10 MG Oral Tablet (Demadex) Take 1 Tablet by mouth in the morning. 0 Active NovoLOG FlexPen 100 UNIT/ML Subcutaneous Solution Pen-injector (insulin aspart)Indications:Ty pe 2 diabetes mellitus with hemoglobin A1c goal of less than 7.0% ([facility]),Type 2 diabetes mellitus with stage 3a chronic kidney disease, with long-term current use of insulin ([facility]) Injected under the skin BEFORE MEALS, 3 times per day: 2 units per 50 when glucose is over 200 units. TDD: 50. ICD10: E11.9. 15 mL 2 3 09/06/20 23 Discontinu ed(Medicat ion List Clean Up) documented as of this encounter (statuses as of 09/06/2023) Active Problems Problem Noted Date Diagnosed Date [...] eye 09/28/2020 Coronary artery disease invo lving [place] coronary artery of [place] heart without angina pectoris 12/16/2019 Last Assessment [...] as of this encounter (statuses as of 09/06/2023) Resolved Problems Problem Noted Date Diagnosed Date [...] 12/21/2016 Diabetes mellitus 01/05/2014 12/21/2016 LEYVA RESEARCH OTHER*[id number] 01/05/2014 12/21/2016 Axillary pain 11/03/2013 12/21/2016 Obesity, [...] be scanned into Electronic Medical Record [facility] V710 Clinical Trial*[id number] 12/22/2010 04/14/2011 S/P aortic valve replacement 12/01/2010 08/26/2011 S/P AORTIC VALVE REPLACEMENT - #25 pericardial Mc valve 11/01/2010 06/28/2018 Overview: Aortic valve replacement with #25 pericardial Mc valve, model 2800TFX, serial number [id number] (Dr. Walker) [facility] V710 Clinical Trial*[id number] 10/18/2010 11/21/2010 Body mass index (BMI) of [...] as of this encounter (statuses as of 09/06/2023) Immunizations Name Administration Dates Next Due COVID-19 mRNA, LNP-s, No Pre serve, 2-Dose Series (Moderna) 10/25/2021,02/16/2021,01/18/2021 HEP A - Hepatitis A (Adult > 18 yrs) 06/07/2018, 12/05/2017 Hepatitis B, 20+ yrs 06/07/2018,01/08/20 18,12/05/2017,06/15,10/27/2013,09/12/2013 Pneumococcal Conjugate Vacci ne, 20-valent ([id number]) 06/22/2023 Pneumococcal Polysaccharide PPV23 (Pneumovax) 01/02/2008 Seasonal [...] Sign Reading Time Taken Comments Blood Pressure 120/64 09/06/2023 10:29 AM EST Pulse 80 09/06/2023 10:29 AM EST Temperature 36.2 C (97.2 F) 09/06/2023 10:[address] Respiratory Rate 18 09/06/2023 10:29 AM EST Oxygen Saturation 98% 09/06/2023 10:29 AM EST Inhaled Oxygen Concentration - - Weight 70.3 kg (155 lb) 09/06/2023 10:29 AM EST Height - - Body Mass Index 31.31 07/31/2023 10:46 AM EST documented in this [...] Progress Notes * Jaycee Sorto, RN - 09/06/2023 10:06 AM EST [facility] Bath Steward/Stewardess Visit Date: 09/06/2023 Time: 10:06 AM Name: Jovita Rose : 1960 Current Concerns: Pt seen for return RNCM visit States she has been doing well, getting stronger each day Has a cg, Wiliam Doe 8am - 3pm She helps pt with her diabetes and medication reminders Blood sugars have improved - has not had any issues lately with extreme highs or lows Has MTM appt on 09/11 for education on new Dexcom No increased SOB or edema Has been weighing via [facility] but has not been transmitting Reset the modem and had pt do weight - confirmed that it did transmit Physical Exam: BP 120/64 | Pulse 80 | Temp 36.2 C (97.2 F) | Resp 18 | Wt 70.3 kg (155 lb) | LMP 04/07/2011 | SpO2 98% | BMI 31.31 kg/m | BSA 1.71 m Pain 0 Physical Exam Constitutional: General: She is not in acute distress. Cardiovascular: Rate and Rhythm: Normal rate and regular rhythm. Pulses: Normal pulses. Heart sounds: Normal heart sounds. Pulmonary: Effort: Pulmonary effort is normal. Breath sounds: Normal breath sounds. Abdominal: General: Bowel sounds are normal. There is distension (at baseline). Palpations: Abdomen is soft. Musculoskeletal: Right lower leg: Edema (+1) present. Left lower leg: Edema (+1) present. Skin: General: Skin is warm and dry. Neurological: Mental Status: She is alert and oriented to person, place, and time. Problems/Symptoms: Review of Systems Constitutional: Negative. HENT: Negative. Eyes: Negative. Respiratory: Positive for shortness of breath (SHAW - at baseline). Cardiovascular: Positive for leg swelling. Gastrointestinal: Negative. Genitourinary: Negative. Musculoskeletal: Negative. Skin: Negative. Psychiatric/Behavioral: Negative. Medication Reconciliation: (See medication list) Does patient take medications as ordered: Yes Patient Well Being: PHQ2/9: No questionnaires available. No change in living situation Denies falls [facility] Completed this Visit: No. Routine visit and [...] a day 5 servings fruit/vegetable per day Reviewed HF symptom monitoring: -Weigh self daily [...] if at night -increased fatigue or vertigo Educated on home safety: Create a fall [...] exercises that will be right for you. Reinforced safety education and fall prevention. and Reinforced medication regimen. Timing., Dosing., and Purspose. Treatment/Plan: Continue meds as prescribed/reviewed [facility] clinic for DM management Check blood sugars QID Fall precautions - use walker Elevate LE as much as possible Daily wts via [facility] Has human services case manager Keep all appts as scheduled Home Interventions Provided: Home Intervention: Other; eval Reinforced current Plan of Care, including self-management and medication regimen Patient's 'Red Flags': Wt gain of 3 lbs in 24 hrs or 5 lbs in one week Increased LE edema Bsg >350 or <70 Patient Needs to Remember: Call [facility] at with any new or worsening health concerns or problems, red flag symptoms. Referrals Needed: Other none Follow Up: Is there cellular connectivity/connectivity in the home? Yes Does the patient have internet in the home? Yes Patient encouraged to call the intake phone number for all urgent but not emergent issues. Is the patient new to [facility] within the last 30 days? No, Assess appropriateness for upcoming telehealth visits. Cancel telehealth visits & schedule home visit with care steam trap worker(s)as indicated. Provider is in agreement with Plan of Care: Yes Scheduled to follow up with patient in one month. Jaycee Sorto RN 09/06/2023 10:06 AM documented in this encounter Plan of Treatment Upcoming Encounters Date Type Department Care Team (Late st Contact Info) Description 09/10/2023 9:20 AM EST Telemedicine Family Practice [facility] [address] [place] [address] Angeline Puentes DO [address] [place] [address] 09/11/2023 1:40 PM EST Office Visit Pharmacy, [facility] [address] [facility] [place] [address] Pharmacist1, [facility] [address] [facility] [place] [address] 10/12/2023 10:00 AM EST Home Visit [facility], [facility] [address] [place] [address] Jaycee Sorto RN [address] [place] [address] 10/15/2023 11:00 AM EST Office Visit Cardiology, [facility] [address] [place] [address] Feli Teague, [place] [address] [place] [address] 02/04/2024 10:20 AM EDT Office Visit Family Practice [facility] [address] [place] [address] Gregory Rausch MD [address] [place] [address] Scheduled Procedures Name Priority Associated Diagnoses Date/Ti [...] Additional history exists CKD PHOS USE SMARTSET 83146 06/18/202405/26, 06/16/2023, 06/15/2023, Additional history exists CKD HGB USE SMARTSET 40050 07/31/202407/31, 07/31/2023, 06/29/2023, Additional history exists COLONOSCOPY-EVERY [...] this encounter Medical Devices Implanted Type Area Pensionholder Information Clerk Device Identifier Shelf Expiration Date Model / Serial / Lot Cath Roselia Single Lumen - [id number] Implanted:Qty : 1 on 03/12/2008 at OR [facility] Left: Chest [employer] *DO NOT USE* 07/25/2012 21-4053-24 / / [id number] Valve Tarsha Aortic [id number] - [id number] Implanted:Qty : 1 on 11/01/2010 at OR [facility] N/A: Heart [employer] 05/20/2012 2800TFX-25 / / [id number] Mesh Soft [id number] - [id number] Implanted:Qty : 1 on 10/10/2019 [place] Hendrickson [place] [facility]/A: Abdomen CR BARD : DAVOL [id number] 05/21/2024 [id number] / / [id number] Lens 22.5 Sn60wf - [id number] Implanted:Qty : 1 on 09/15/2020 by Cece Roland MD at [facility] Right: Eye IVA : SURGICAL [id number] 05/13/2025 SN60 WF.225 / [id number] documented as of this encounter Advance [...] patient have Health Care Power of Senior Site Manager? No Full Code 10/10/2019 8:40 AM 10/10/2019 5:53 PM This order reflects the patients wishes and were consensually agreed upon. Full Code 11/06/2017 4:55 PM 11/07/2017 7:14 PM This order reflects the patients wishes and were consensually agreed upon. Healthcare Agents on File Name Relationship Healthcare Agent Relationshi p Communication Gigi [facility] Health Care Repr esentative (appointed verbally by patient or by statute hierarchy) Care Teams Cleaning Machine Operator Relationship Specialty Start Date End Date Gregory Rausch MD [address] [place] [address] PCP - General Family Medicine 02/12/20 documented as of this encounter
--- OUTSIDE RECORDS SUMMARY | 2023-10-27 12:14 | External Medical Summary | Summary of Care ---
Author Name Unknown Organization [facility] Address [address] [place] [address] Phone [phone] Care Team Providers Care Sheet Metal Foreman Name Role Phone Gregory Rausch MD Primary Care Provider [phone] Reason for Visit * Reason Onset Date Comments Medication Refill 08/31/2023 Encounter Details Date Type Department Care Team (Late st Contact Info) Description 08/31/2023 Refill Family Practice [facility] [address] [facility] [place] [address] Gregory Rausch MD [address] [facility] [place] [address] Allergies Active [...] hypoglycemia E11.9 100 Tab 3 07/06/2021 Active mPortTotravayl Verio w/Device Kit Use up to 4 times a day E11.9 1 Kit 0 02/10/2022 Active mPortTouch Delica Lancets 33G TEST 4 TIMES DAILY [...] insulin pump 1 Kit 0 01/11/2023 Active metFORMIN HCl 850 MG Oral Tablet (Glucophage) TAKE 1 TABLET BY MOUTH TWICE A DAY WITH BREAKFAST AND DINNER 180 Tablet 3 01/11/2023 Active Additional Information Patient not taking.Reported on [...] [facility]),Type 2 diabetes mellitus with diabetic mononeuropathy, with long-term current use of insulin ([facility]),Type 2 diabetes mellitus with both [...] ER 10 MEQ Oral Tablet Extended ReleaseIndications:[place] on chronic heart failure with preserved [...] at bedtime. 6 mL 2 07/31/2023 Active NovoLOG FlexPen 100 UNIT/ML Subcutaneous Solution Pen-injector (insulin aspart)Indications:Ty pe 2 diabetes mellitus with hemoglobin A1c goal of less than 7.0% ([facility]),Type 2 diabetes mellitus with stage 3a chronic kidney disease, with long-term current use of insulin ([facility]) Injected under the skin BEFORE MEALS, 3 times per day: 2 units per 50 when glucose is over 200 units. TDD: 50. ICD10: E11.9. 15 mL 2 07/31/2023 Active BD Pen Needle Short U/F 31G X 8 MMIndications:Type 2 diabetes mellitus with hemoglobin A1c goal of less than 7.0% ([facility]),Type 2 diabetes mellitus with stage 3a chronic kidney disease, with long-term current use of insulin ([facility]) Use with insulin 4 times daily 400 Each 3 07/31/2023 Active metFORMIN HCl 1000 MG Oral Tablet (Glucophage) Take 1 Tablet by mouth 2 times a day with morning and evening meals. 0 Active Gaviscon 80-14.2 MG Oral Tablet Chewable (Alum Hydroxide-Mag Trisilicate) Take by mouth as needed. 0 Active Nystatin 488719 UNIT/GM External Powder (Nystop)Indications:C andidal intertrigo APPLY [...] to face 420 g 0 08/30/2023 Active documented as of this encounter (statuses [...] eye 09/28/2020 Coronary artery disease invo lving [place] coronary artery of [place] heart without angina pectoris 12/16/2019 Last Assessment [...] eyes 08/09/2020 04/18/2023 Dry eyes 08/09/2020 2020 HSAW (dyspnea on exertion) 01/14/2020 Incisional hernia 10/10/2019 [...] 12/21/2016 Diabetes mellitus 01/05/2014 12/21/2016 LEYVA RESEARCH OTHER*[id number] 01/05/2014 12/21/2016 Axillary pain 11/03/2013 12/21/2016 Obesity, [...] to be scanned into Electronic Medical Record [facility] V710 Clinical Trial*[id number] 12/22/2010 04/14/2011 S/P aortic valve replacement 12/01/2010 08/26/2011 S/P AORTIC VALVE REPLACEMENT - #25 pericardial Mc valve 11/01/2010 06/28/2018 Overview: Aortic valve replacement with #25 pericardial Mc valve, model 2800TFX, serial number [id number] (Dr. Walker) [facility] V710 Clinical Trial*[id number] 10/18/2010 11/21/2010 Body mass index (BMI) of [...] 06/07/2018,01/08/20 18,12/05/2017,06/15,10/27/2013,09/12/2013 Pneumococcal Conjugate Vacci ne, 20-valent ([id number]) 06/22/2023 Pneumococcal Polysaccharide PPV23 (Pneumovax) 01/02/2008 SEASONAL [...] - Sommer Puente PHARM Tech - 08/31/2023 10:14 AM EST error documented in this encounter Plan of Treatment Upcoming Encounters Date Type Department Care Team (Late st Contact Info) Description 09/06/2023 4:00 PM EST Home Visit [facility] [address] [place] [address] Jaycee Sorto RN [address] [place] [address] 09/11/2023 1:40 PM EST Office Visit Pharmacy, [facility] [address] [facility] [place] [address] Pharmacist1, [facility] [address] [facility] [place] [address] 10/15/2023 11:00 AM EST Office Visit Cardiology, [facility] [address] [place] [address] Feli Teague PA-C [address] [place] [address] 02/04/2024 10:20 AM EDT Office Visit Family Practice [facility] [address] [place] [address] Gregory Rausch MD [address] [place] [address] Scheduled Procedures Name Priority Associated Diagnoses Date/Ti [...] Additional history exists CKD PHOS USE SMARTSET 26213 06/18/202405/26, 06/16/2023, 06/15/2023, Additional history exists CKD HGB USE SMARTSET 09395 07/31/202407/31, 07/31/2023, 06/29/2023, Additional history exists COLONOSCOPY-EVERY [...] this encounter Medical Devices Implanted Type Area Teacher Asst Device Identifier Shelf Expiration Date Model / Serial / Lot Cath Roselia Single Lumen - [id number] Implanted:Qty : 1 on 03/12/2008 at OR [facility] Left: Chest [facility] *DO NOT USE* 07/25/2012 21-4053-24 / / [id number] Valve Tarsha Aortic [id number] - [id number] Implanted:Qty : 1 on 11/01/2010 at OR [facility] N/A: Heart [employer] DANIEL 05/20/2012 [id number]-25 / / [id number] Mesh Soft [id number] - [id number] Implanted:Qty : 1 on 10/10/2019 by Gigi Hendrickson MD at [facility] N/A: Abdomen CR BARD : DAVOL [id number] 05/21/2024 [id number] / / [id number] Lens 22.5 Sn60wf - [id number] - [id number] Implanted:Qty : 1 on 09/15/2020 by Renaldo Cook, Cece Acosta MD at OR [facility] Right: Eye IVA : SURGICAL [id number] 05/13/2025 SN60 WF.225 / [id number] / [id number] documented as of this encounter Advance [...] the patient have Health Care Power of Director Heart? No Full Code 10/10/2019 8:40 AM 10/10/2019 [...] patient or by statute hierarchy) Care Teams Sheet Metal Foreman Relationship Specialty Start Date End Date Gregory Rausch MD [address] [place] [address] PCP - General Family Medicine 02/12/20 documented as of this encounter
--- OUTSIDE RECORDS SUMMARY | 2023-10-27 12:14 | External Medical Summary | Summary of Care ---
Author Name Unknown Organization [facility] Address [address] [place] [address] Phone [phone] Care Team Providers Care Clothes Presser Name Role Phone Gregory Rausch MD Primary Care Provider [phone] Reason for Visit * Reason Comments Diabetes Follow-Up Dosage Adjustment In Person (Anticoag Cl inic) Insulin Pump Encounter Details Date Type Department Care Team (Late st Contact Info) Description 09/11/2023 1:40 PM EST Office Visit Pharmacy, [facility] [address] [facility] [place] [address] Pharmacist1, [facility] [address] [place] [address] Type 2 diabetes mellitus with hemoglobin A1c goal of less than 7.0% ([facility])* Allergies Active Allergy Reactions Criticality Noted Date Comments Adhesive Tape 07/02/2017 Can tolerate band-aids Glycerin Other (Please comment) 03/12/2008 Topical agents with glycein-burning & itching Lactose 12/09/2014 Dairy - gas Lisinopril Cough 01/21/2010 Monosodium Glutamate Edema Other 03/12/2008 Hands and feet Penicillins Rash 11/14/2007 documented as of this encounter (statuses as of 09/11/2023) Medications Medication Sig Dispensed Refills Start Date [...] hypoglycemia E11.9 100 Tab 3 07/06/2021 Active eyefactiveToPixelSteam Verio w/Device Kit Use up to 4 times a day E11.9 1 Kit 0 02/10/2022 Active eyefactiveTouch Delica Lancets 33G TEST 4 TIMES DAILY [...] by mouth as needed. 0 Active Nystatin 618958 UNIT/GM External Powder (Nystop)Indications:C andidal intertrigo APPLY [...] as of this encounter (statuses as of 09/11/2023) Active Problems Problem Noted Date Diagnosed Date [...] eye 09/28/2020 Coronary artery disease invo lving [place] coronary artery of [place] heart without angina pectoris 12/16/2019 Last Assessment [...] as of this encounter (statuses as of 09/11/2023) Resolved Problems Problem Noted Date Diagnosed Date [...] 12/21/2016 Diabetes mellitus 01/05/2014 12/21/2016 LEYVA RESEARCH OTHER*[id number] 01/05/2014 12/21/2016 Axillary pain 11/03/2013 12/21/2016 Obesity, [...] cath 09/201008/26/2011 12/21/2016 FOLLOWING SURGERY, UNSPECIFI ED ([facility] 08/25/2011) 08/26/2011 12/21/2016 ADVANCE DIRECTIVE INFORMATION 04/17/2011 12/21/2016 Overview: Yes, Patient instructed to provide copy of advance directive for provider to review and to be scanned into Electronic Medical Record ADVANCE DIRECTIVE INFORMATION 03/01/2011 12/21/2016 Overview: Yes, Patient instructed to provide copy of advance directive for provider to review and to be scanned into Electronic Medical Record [facility] V710 Clinical Trial*[id number] 12/22/2010 04/14/2011 S/P aortic valve replacement 12/01/2010 08/26/2011 S/P AORTIC VALVE REPLACEMENT - #25 pericardial Hernandez valve 11/01/2010 06/28/2018 Overview: Aortic valve replacement with #25 pericardial Hernandez valve, model 2800TFX, serial number [id number] (Dr. Walker) [facility] V710 Clinical Trial*[id number] 10/18/2010 11/21/2010 Body mass index (BMI) of [...] as of this encounter (statuses as of 09/11/2023) Immunizations Name Administration Dates Next Due COVID-19 mRNA, LNP-s, No Pre serve, 2-Dose Series (Moderna) 10/25/2021,02/16/2021,01/18/2021 HEP A - Hepatitis A (Adult > 18 yrs) 06/07/2018, 12/05/2017 Hepatitis B, 20+ yrs 06/07/2018,01/08/20 18,12/05/2017,06/15,10/27/2013,09/12/2013 Pneumococcal Conjugate Vacci ne, 20-valent (Duypgvw52) 06/22/2023 Pneumococcal Polysaccharide PPV23 (Pneumovax) 01/02/2008 Seasonal [...] encounter Progress Notes * Heather So Neeraj, [facility] - 09/11/2023 1:41 PM EST [...] marijuana use Z79.899 Coronary artery disease involving [place] coronary artery of [place] heart without angina pectoris I25.10 Cystoid macular [...] [facility] Each 3 aspirin enteric coated 81 [...] mg/dL for hypoglycemia E11.9 100 Tab 3 eyefactiveTouch Verio w/Device Kit Use up to 4 times a day E11.9 1 Kit 0 Zeppelin DelTalent Flush Lancets 33G TEST 4 TIMES DAILY DIRECTED, [...] Trisilicate) Take by mouth as needed. Nystatin 514552 UNIT/GM External Powder (Nystop) APPLY TOPICALLY TO [...] this visit. Objective: The ASCVD Risk score (Neptune DK, et al., 2019) failed to calculate for the following reasons: The patient has a prior VA or stroke diagnosis Estimated body mass index is 31.31 kg/m as calculated from the following: Height as of 07/31/23: 1.499 m (4' 11"). Weight as of 09/06/23: 70.3 kg (155 lb). BP Readings from Last 3 Encounters: 09/06/23 120/64 07/31/23 130/62 07/28/23 140/72 No components found for: "[id number]" No results found for: "MICROALBUMIN" Lab Results Component Value Date/Time LDL CHOLESTEROL (CALCULATED) - TRACEY 32 08/30/2018 04:00 PM LDL CHOLESTEROL (DIRECT MEASURE) - [facility] 04/09/2023 01:44 PM LDL CHOLESTEROL (DIRECT MEASURE) - [facility] 30 09/07/2020 10:58 AM LDL- CHOL (G-CMC) [...] Rights and Responsibilities in User Guide Personal Surgical Coordinator (PDM): ID screen, pump buttons, battery and [...] Diabetes Medications: (pump initiation settings scanned in [employer]) DECREASE: Ozempic 1mg every Sunday (1mg = [...] Neeraj Romero RPh, ROGER Clinical Pharmacist - Reservations Sales Supervisor Medication [facility] 09/11/2023, 1:41 PM documented in this encounter Plan of Treatment Upcoming Encounters Date Type Department Care Team (Late st Contact Info) Description 09/12/2023 1:00 PM EST Telemedicine Family Practice [facility] [address] [place] [address] Angeline Puentes DO [address] [place] [address] 09/14/2023 2:00 PM EST Office Visit Pharmacy, [facility] [address] [facility] [place] [address] Pharmacist1, [facility] [address] [facility] [place] [address] 10/12/2023 10:00 AM EST Home Visit [facility] [address] [place] [address] Jaycee Sorto RN [address] [place] [address] 10/15/2023 11:00 AM EST Office Visit Cardiology, [facility] [address] [place] [address] Feli Teague PA-C [address] [place] [address] 02/04/2024 10:20 AM EDT Office Visit Family Practice [facility] [address] [place] [address] Gregory Rausch MD [address] [place] [address] Scheduled Procedures Name Priority Associated Diagnoses Date/Ti [...] Additional history exists CKD PHOS USE SMARTSET 89783 06/18/202405/26, 06/16/2023, 06/15/2023, Additional history exists CKD HGB USE SMARTSET 11328 07/31/202407/31, 07/31/2023, 06/29/2023, Additional history exists COLONOSCOPY-EVERY [...] this encounter Medical Devices Implanted Type Area Leverman Device Identifier Shelf Expiration Date Model / Serial / Lot Cath Roselia Single Lumen - [id number] Implanted:Qty : 1 on 03/12/2008 at OR [facility] Left: Chest [employer] *DO NOT USE* 07/25/2012 21-4053-24 / / [id number] Valve Tarsha Aortic [id number] - [id number] Implanted:Qty : 1 on 11/01/2010 at OR [facility] N/A: Heart [employer] DANIEL 05/20/2012 2800TFX-25 / / [id number] Mesh Soft [id number] - [id number] Implanted:Qty : 1 on 10/10/2019 by Gigi Hendrickson MD at OR [facility] N/A: Abdomen CR BARD : DAVOL [id number] 05/21/2024 [id number] / / [id number] Lens 22.5 Sn60wf - [id number] - [id number] Implanted:Qty : 1 on 09/15/2020 by Cece Roland MD at [facility] Right: Eye IVA : SURGICAL [id number] 05/13/2025 SN60 WF.225 / [id number] / [id number] documented as of this encounter Visit [...] the patient have Health Care Power of Thread Twister? No Full Code 10/10/2019 8:40 AM 10/10/2019 5:53 PM This order reflects the patients wishes and were consensually agreed upon. Full Code 11/06/2017 4:55 PM 11/07/2017 7:14 PM This order reflects the patients wishes and were consensually agreed upon. Healthcare Agents on File Name Relationship [facility] Gigi Rose Adult Child Health Care Repr esentative (appointed verbally by patient or by statute hierarchy) Care Teams Clothes Presser Relationship Specialty Start Date End Date Gregory Rausch MD [address] [place] [address] PCP - General Family Medicine 02/12/20 documented as of this encounter
--- OUTSIDE RECORDS SUMMARY | 2023-10-27 12:15 | External Medical Summary | Summary of Care ---
Author Name Unknown Organization [facility] Address [address] [place] [address] Phone [phone] Care Team Providers Care Pediatric Dermatologist Name Role Phone Gregory Rausch MD Primary Care Provider [phone] Reason for Visit * Reason Onset Date Comments Appointment 08/14/2023 Encounter Details Date Type Department Care Team (Late st Contact Info) Description 08/14/2023 Telephone [facility], [place] [address] [place] [phone] Services, Scheduling [address] [place] [address] Appointment (//) Allergies Active Allergy Reactions Criticality Noted Date Comments Adhesive Tape 07/02/2017 Can tolerate band-aids Glycerin Other (Please comment) 03/12/2008 Topical agents with glycein-burning & itching Lactose 12/09/2014 Dairy - gas Lisinopril Cough 01/21/2010 Monosodium Glutamate Edema Other 03/12/2008 Hands and feet Penicillins Rash 11/14/2007 documented as of this encounter (statuses as of 08/14/2023) Medications Medication Sig Dispensed Refills Start Date [...] and 2 Tablets before bedtime. 0 Active Aquaphor External Ointment Apply topically to affected area as needed for Dry Skin. Apply to face 420 g 0 06/14/2021 Active BD Glucose 5 GM Oral Tablet Chewable (Glucose)Indications: DM type 2, not at goal (HCC) 3 every 15 minutes until glucose is > 100 mg/dL for hypoglycemia E11.9 100 Tab 3 07/06/2021 Active AzoiTouch Verio w/Device Kit Use up to 4 times a day E11.9 1 Kit 0 02/10/2022 Active AzoiTouch Delica Lancets 33G TEST 4 TIMES DAILY DIRECTED, E11.9 400 Each 3 02/10/2022 Active Melatonin 10 MG Oral CapsuleIndications:sl eep Take 1 Capsule by mouth at bedtime. 0 Active Meclizine HCl 25 MG Oral Tablet (Antivert)Indications :Muscle tension headache TAKE 2 TABLETS BY MOUTH TWICE A DAY 360 Tablet 3 07/12/2022 Active Additional Information Patient not taking.Reported on 08/03/2023 Ammonium Lactate 12 % External Lotion (Lac-Hydrin) [...] hemoglobin A1c goal of less than 7.0% ([facility]) Use as directed. Use 1 transmitter every 90 days E 11.9 1 Each 3 01/16/2023 Active Atorvastatin Calcium 40 MG Oral Tablet (Lipitor)Indications: Heart failure, systolic, due to idiopathic cardiomyopathy ([facility]),S/P aortic valve replacement,HTN, goal below 140/80,Dyslipidemia, goal LDL below 70 TAKE 1 TABLET BY MOUTH DAILY. TO PREVENT HEART ATTACK/STROKE, PROTECT KIDNEY, AND CHOLESTEROL 90 Tablet 1 01/18/2023 Active Ozempic (2 MG/DOSE) 8 MG/3ML Subcutaneous Solution Pen-injector (Semaglutide (2 MG/DOSE))Indications: Type 2 diabetes mellitus with hemoglobin A1c goal of less than 7.0% ([facility]),Type 2 diabetes mellitus with diabetic mononeuropathy, with long-term current use of insulin ([facility]),Type 2 diabetes mellitus with both eyes affected by mild nonproliferative retinopathy and macular edema, with long-term current use of insulin ([facility]),Type 2 diabetes mellitus with stage 3a chronic kidney disease, with long-term current use of insulin ([facility]) Inject 0.75 mL under the skin once a week. 9 mL 3 02/22/2023 Active Fluticasone Propionate 50 MCG/ACT Nasal Suspension (Flonase)Indications: Dizziness Administer 2 Sprays into each nostril in the morning. 16 g 3 03/01/2023 Active metOLazone 2.5 MG Oral Tablet (Zaroxolyn)Indication s:Acute on chronic heart failure with preserved ejection fraction (HFpEF) ([facility]) One tablet one morning twice per week [...] OTHER MEDICATIONS 90 Tablet 2 05/05/2023 Active Nystatin 843618 UNIT/GM External Powder (Nystop)Indications:C andidal intertrigo Apply topically to affected area 3 times a day. Apply to affected areas 60 g 1 05/11/2023 Active OneTouch Verio In Vitro Strip (Glucose Blood) Use up to 4 times a day E11.9 100 Strip 11 07/26/2023 Active Potassium Chloride Shannon ER 10 MEQ Oral Tablet Extended ReleaseIndications:Ac absentee-shawnee on chronic heart failure with preserved ejection fraction (HFpEF) ([facility]) Take 1 Tablet by mouth in the [...] hemoglobin A1c goal of less than 7.0% ([facility]),Type 2 diabetes mellitus with stage 3a chronic kidney disease, with long-term current use of insulin ([facility]) Inject 30 Units under the skin at bedtime. 6 mL 2 07/31/2023 Active NovoLOG FlexPen 100 UNIT/ML Subcutaneous Solution Pen-injector (insulin aspart)Indications:Ty pe 2 diabetes mellitus with hemoglobin A1c goal of less than 7.0% ([facility]),Type 2 diabetes mellitus with stage 3a chronic kidney disease, with long-term current use of insulin ([facility]) Injected under the skin BEFORE MEALS, 3 times per day: 2 units per 50 when glucose is over 200 units. TDD: 50. ICD10: E11.9. 15 mL 2 07/31/2023 Active BD Pen Needle Short U/F 31G X 8 MMIndications:Type 2 diabetes mellitus with hemoglobin A1c goal of less than 7.0% ([facility]),Type 2 diabetes mellitus with stage 3a chronic kidney disease, with long-term current use of insulin ([facility]) Use with insulin 4 times daily 400 Each 3 07/31/2023 Active metFORMIN HCl 1000 MG Oral Tablet (Glucophage) Take 1 Tablet by mouth 2 times a day with morning and evening meals. 0 Active Gaviscon 80-14.2 MG Oral Tablet Chewable (Alum Hydroxide-Mag Trisilicate) Take by mouth as needed. 0 Active documented as of this encounter (statuses as of 08/14/2023) Active Problems Problem Noted Date Diagnosed Date [...] eye 09/28/2020 Coronary artery disease invo lving [place] coronary artery of [place] heart without angina pectoris 12/16/2019 Last Assessment [...] as of this encounter (statuses as of 08/14/2023) Resolved Problems Problem Noted Date Diagnosed Date [...] Per Obesity protocol #1 Muscle tension headache 02/01/20172 12/2016 Depression with anxiety 12/21/201601/2018 Ventral hernia [...] 12/21/2016 Diabetes mellitus 01/05/2014 12/21/2016 LEYVA RESEARCH OTHER*[id number] 01/05/2014 12/21/2016 Axillary pain 11/03/2013 12/21/2016 Obesity, [...] Medical Record [facility] V710 Clinical Trial*[id number] 12/22/2010 04/14/2011 S/P aortic valve replacement 12/01/2010 08/26/2011 S/P AORTIC VALVE REPLACEMENT - #25 pericardial Mc valve 11/01/2010 06/28/2018 Overview: Aortic valve replacement with #25 pericardial Mc valve, model 2800TFX, serial number [id number] (Dr. Walker) [facility] V710 Clinical Trial*[id number] 10/18/2010 11/21/2010 Body mass index (BMI) of [...] as of this encounter (statuses as of 08/14/2023) Immunizations Name Administration Dates Next Due COVID-19 mRNA, LNP-s, No Pre serve, 2-Dose Series (Moderna) 10/25/2021,02/16/2021,01/18/2021 HEP A - Hepatitis A (Adult > 18 yrs) 06/07/2018, 12/05/2017 Hepatitis B, 20+ yrs 06/07/2018,01/08/20 18,12/05/2017,06/15,10/27/2013,09/12/2013 Pneumococcal Conjugate Vacci ne, 20-valent ([id number]) 06/22/2023 Pneumococcal Polysaccharide PPV23 (Pneumovax) 01/02/2008 SEASONAL [...] encounter Miscellaneous Notes * Telephone Encounter - Jose Antonio Malik OSA - 08/14/2023 12:10 PM EST Call to pt to confirm r/s rncm ret hv from 08/30 to 09/06 at 4pm, pt agreeable documented in this encounter Plan of Treatment Upcoming Encounters Date Type Department Care Team (Late st Contact Info) Description 09/06/2023 4:00 PM EST Home Visit [facility] [address] [address] Jaycee Sorto RN [address] [address] 09/11/2023 1:40 PM EST Office Visit Pharmacy, [facility] [address] [facility] [place] [address] Pharmacist1, [facility] [address] [facility] [address] 10/15/2023 11:00 AM EST Office Visit Cardiology, [facility] [address] [address] Feli Teague PA-C [address] [address] 02/04/2024 10:20 AM EDT Office Visit Family Practice [facility] [address] [address] Gregory Rausch MD [address] [address] Scheduled Procedures Name Priority Associated Diagnoses Date/Ti [...] Additional history exists CKD PHOS USE SMARTSET 51615 06/18/202405/26, 06/16/2023, 06/15/2023, Additional history exists CKD HGB USE SMARTSET 70496 07/31/202407/31, 07/31/2023, 06/20/2023, Additional history exists COLONOSCOPY-EVERY 3 YRS AGES [...] this encounter Medical Devices Implanted Type Area Staple Fiber Washer Device Identifier Shelf Expiration Date Model / Serial / Lot Cath Roselia Single Lumen - [id number] Implanted:Qty : 1 on 03/12/2008 at OR [facility] Left: Chest [facility] *DO NOT USE* 07/25/2012 21-4053-24 / / [id number] Valve Tarsha Aortic [id number] - [id number] Implanted:Qty : 1 on 11/01/2010 at OR [facility] N/A: Heart [employer] DANIEL 05/20/2012 2800TFX-25 / / [id number] Mesh Soft [id number] - [id number] Implanted:Qty : 1 on 10/10/2019 [place] Gigi Hendricks[place] [facility] [place]A: Abdomen CR BARD : DAVOL [id number] 05/21/2024 [id number] / / [id number] Lens 22.5 Sn60wf - [id number] - [id number] Implanted:Qty : 1 on 09/15/2020 by Renaldo Cook, Cece Acosta MD at [facility] Right: Eye IVA : SURGICAL [id number] 05/13/2025 SN60 WF.225 / [id number] / [id number] documented as of this encounter Advance [...] the patient have Health Care Power of Greige Goods Inspector? No Full Code 10/10/2019 8:40 AM 10/10/2019 5:53 PM This order reflects the patients wishes and were consensually agreed upon. Full Code 11/06/2017 4:55 PM 11/07/2017 7:14 PM This order reflects the patients wishes and were consensually agreed upon. Healthcare Agents on File Name Relationship Healthcare Agent [facility] Communication Gigi Rose Adult Child Health Care Repr esentative (appointed verbally by patient or by statute hierarchy) Care Teams Pediatric Dermatologist Relationship Specialty Start Date End Date Gregory Rausch MD [address] [address] PCP - General Family Medicine 02/12/20 documented as of this encounter
--- OUTSIDE RECORDS SUMMARY | 2023-10-27 12:15 | External Medical Summary | Summary of Care ---
Author Name Unknown Organization [facility] Address [address] [place] [address] Phone [phone] Care Team Providers Care Cellular Plastics Cutter Name Role Phone Gregory Rausch MD Primary Care Provider [phone] Reason for Visit * Reason Onset Date Comments [facility]: Maintenance 08/17/2023 Encounter Details Date Type Department Care Team (Late st Contact Info) Description 08/17/2023 Telephone [facility], [facility] [address] [place] [address] [facility], Nurse [facility] [address] [place] [address] [facility]: Maintenance Allergies Active Allergy Reactions Criticality Noted Date Comments Adhesive Tape 07/02/2017 Can tolerate band-aids Glycerin Other (Please comment) 03/12/2008 Topical agents with glycein-burning & itching Lactose 12/09/2014 Dairy - gas Lisinopril Cough 01/21/2010 Monosodium Glutamate Edema Other 03/12/2008 Hands and feet Penicillins Rash 11/14/2007 documented as of this encounter (statuses as of 08/17/2023) Medications Medication Sig Dispensed Refills Start Date [...] hypoglycemia E11.9 100 Tab 3 07/06/2021 Active Brass MonkeyTouch Verio w/Device Kit Use up to 4 times a day E11.9 1 Kit 0 02/10/2022 Active Brass MonkeyTouch Delica Lancets 33G TEST 4 TIMES DAILY [...] of less than 7.0% ([facility]) Use as directed. Use 1 transmitter every 90 days E 11.9 1 Each 3 01/16/2023 Active Atorvastatin Calcium 40 MG Oral Tablet (Lipitor)Indications: Heart failure, systolic, due to idiopathic cardiomyopathy ([facility]),S/P aortic valve replacement,HTN, goal below 140/80,Dyslipidemia, goal LDL below 70 TAKE 1 TABLET BY MOUTH DAILY. TO PREVENT HEART ATTACK/STROKE, PROTECT KIDNEY, AND CHOLESTEROL 90 Tablet 1 01/18/2023 Active Ozempic (2 MG/DOSE) 8 MG/3ML Subcutaneous Solution Pen-injector (Semaglutide (2 MG/DOSE))Indications: Type 2 diabetes mellitus with hemoglobin A1c goal of less than 7.0% ([facility]),Type 2 diabetes mellitus with diabetic mononeuropathy, with long-term current use of insulin ([facility]),Type 2 diabetes mellitus with both eyes affected by mild nonproliferative retinopathy and macular edema, with long-term current use of insulin ([facility]),Type 2 diabetes mellitus with stage 3a chronic kidney disease, with long-term current use of insulin ([facility]) Inject 0.75 mL under the skin once a week. 9 mL 3 02/22/2023 Active Fluticasone Propionate 50 MCG/ACT Nasal Suspension (Flonase)Indications: Dizziness Administer 2 Sprays into each nostril in the morning. 16 g 3 03/01/2023 Active metOLazone 2.5 MG Oral Tablet (Zaroxolyn)Indication s:Acute on chronic heart failure with preserved ejection fraction (HFpEF) ([facility]) One tablet one morning twice per [...] MEDICATIONS 90 Tablet 2 05/05/2023 Active Nystatin 132915 UNIT/GM External Powder (Nystop)Indications:C andidal intertrigo Apply [...] preserved ejection fraction (HFpEF) ([facility]) Take 1 Tablet by mouth in [...] of less than 7.0% ([facility]),Type 2 diabetes mellitus with stage 3a chronic kidney disease, with long-term current use of insulin ([facility]) Inject 30 Units under the skin at bedtime. 6 mL 2 07/31/2023 Active NovoLOG FlexPen 100 UNIT/ML Subcutaneous Solution Pen-injector (insulin aspart)Indications:Ty pe 2 diabetes mellitus with hemoglobin A1c goal of less than 7.0% ([facility]),Type 2 diabetes mellitus with stage 3a chronic kidney disease, with long-term current use of insulin ([facility]) Injected under the skin BEFORE MEALS, 3 times per day: 2 units per 50 when glucose is over 200 units. TDD: 50. ICD10: E11.9. 15 mL 2 07/31/2023 Active BD Pen Needle Short U/F 31G X 8 MMIndications:Type 2 diabetes mellitus with hemoglobin A1c goal of less than 7.0% ([facility]),Type 2 diabetes mellitus with stage 3a chronic kidney disease, with long-term current use of insulin ([facility]) Use with insulin 4 times daily 400 Each 3 07/31/2023 Active metFORMIN HCl 1000 MG Oral Tablet (Glucophage) Take 1 Tablet by mouth 2 times a day with morning and evening meals. 0 Active Gaviscon 80-14.2 MG Oral Tablet Chewable (Alum Hydroxide-Mag Trisilicate) Take by mouth as needed. 0 Active documented as of this encounter (statuses as of 08/17/2023) Active Problems Problem Noted Date Diagnosed Date [...] as of this encounter (statuses as of 08/17/2023) Resolved Problems Problem Noted Date Diagnosed Date [...] 12/21/2016 Diabetes mellitus 01/05/2014 12/21/2016 LEYVA RESEARCH OTHER*[id number] 01/05/2014 12/21/2016 Axillary pain 11/03/2013 12/21/2016 Obesity, [...] cath 09/201008/26/2011 12/21/2016 FOLLOWING SURGERY, UNSPECIFI ED ([facility] 08/25/2011) 08/26/2011 12/21/2016 ADVANCE DIRECTIVE INFORMATION 04/17/2011 12/21/2016 Overview: Yes, Patient instructed to provide copy of advance directive for provider to review and to be scanned into Electronic Medical Record ADVANCE DIRECTIVE INFORMATION 03/01/2011 12/21/2016 Overview: Yes, Patient instructed to provide copy of advance directive for provider to review and to be scanned into Electronic Medical Record [facility] V710 Clinical Trial*[id number] 12/22/2010 04/14/2011 S/P aortic valve replacement 12/01/2010 08/26/2011 S/P AORTIC VALVE REPLACEMENT - #25 pericardial Mc valve 11/01/2010 06/28/2018 Overview: Aortic valve replacement with #25 pericardial Mc valve, model 2800TFX, serial number [id number] (Dr. Walker) [facility] V710 Clinical Trial*[id number] 10/18/2010 11/21/2010 Body mass index (BMI) of [...] as of this encounter (statuses as of 08/17/2023) Immunizations Name Administration Dates Next Due COVID-19 mRNA, LNP-s, No Pre serve, 2-Dose Series (Moderna) 10/25/2021,02/16/2021,01/18/2021 HEP A - Hepatitis A (Adult > 18 yrs) 06/07/2018, 12/05/2017 Hepatitis B, 20+ yrs 06/07/2018,01/08/20 18,12/05/2017,06/15,10/27/2013,09/12/2013 Pneumococcal Conjugate Vacci ne, 20-valent ([id number]) 06/22/2023 Pneumococcal Polysaccharide PPV23 (Pneumovax) 01/02/2008 SEASONAL [...] encounter Miscellaneous Notes * Telephone Encounter - Gisela Cartwright LPN - 08/17/2023 11:32 AM EST Images from the original note were not included. [facility] Remote Patient Monitoring Unable to contact patient: Trigger type: Abnormal reading(s): Device(s) Triggered: AMC (Advanced Monitored Caregiving): Scale: Trigger weight: 156.8 lbs; weight increased 5 lbs in 7 day(s) Plan: Call to no answer left requesting a return call to [facility] at [phone] opt#3 documented in this encounter Plan of Treatment Upcoming Encounters Date Type Department Care Team (Late st Contact Info) Description 09/06/2023 4:00 PM EST Home Visit [facility], [facility] [address] [address] Jaycee Sorto RN [address] [address] 09/11/2023 1:40 PM EST Office Visit Pharmacy, [facility] [address] [facility] [place] [address] Pharmacist1, [facility] [address] [facility] [place] [address] 10/15/2023 11:00 AM EST Office Visit Card[facility], [facility] [address] [address] Feli Teague PA-C [address] [address] 02/04/2024 10:20 AM EDT Office Visit Family [facility] [address] [place] [address] Gregory Rausch MD [address] [place] [address] Scheduled Procedures Name Priority Associated Diagnoses Date/Ti [...] Additional history exists CKD PHOS USE SMARTSET 61780 06/18/202405/26, 06/16/2023, 06/15/2023, Additional history exists CKD HGB USE SMARTSET 51225 07/31/202407/31, 07/31/2023, 06/20/2023, Additional history exists COLONOSCOPY-EVERY [...] this encounter Medical Devices Implanted Type Area Environmental Sampler Device Identifier Shelf Expiration Date Model / Serial / Lot Cath Roselia Single Lumen - [id number] Implanted:Qty : 1 on 03/12/2008 at OR [facility] Left: Chest [facility] *DO NOT USE* 07/25/2012 21-4053-24 / / [id number] Valve Tarsha Aortic [id number] - [id number] Implanted:Qty : 1 on 11/01/2010 at OR [facility] N/A: Heart [employer] DANIEL 05/20/2012 2800TFX-25 / / [id number] Mesh Soft [id number] - [id number] Implanted:Qty : 1 on 10/10/2019 [place] Hend[place]on [place] [facility] [place] [facility]: Abdomen CR BARD : DAVOL [id number] 05/21/2024 [id number] / / [id number] Lens 22.5 Sn60wf - [id number] - [id number] Implanted:Qty : 1 on 09/15/2020 by Renaldo Cook, Cece Acosta MD at [facility] Right: Eye IVA : SURGICAL [id number] 05/13/2025 SN60 WF.225 / [id number] / [id number] documented as of this encounter Advance [...] the patient have Health Care Power of Silver Holloware Assembler? No Full Code 10/10/2019 8:40 AM 10/10/2019 5:53 PM This order reflects the patients wishes and were consensually agreed upon. Full Code 11/06/2017 4:55 PM 11/07/2017 7:14 PM This order reflects the patients wishes and were consensually agreed upon. Healthcare Agents on File Name Relationship Healthcare Agent Relationshi p Communication [facility]rez [facility] Adult Child Health Care Repr esentative (appointed verbally by patient or by statute hierarchy) Care Teams Cellular Plastics Cutter Relationship Specialty Start Date End Date Gregory Rausch MD [address] [place] [address] PCP - General Family Medicine 02/12/20 documented as of this encounter
--- OUTSIDE RECORDS SUMMARY | 2023-10-27 12:15 | External Medical Summary | Summary of Care ---
Author Name Unknown Organization [facility] Address [address] [place] [address] Phone [phone] Care Team Providers Care Physician Anesthesiologist Name Role Phone Gregory Rausch MD Primary Care Provider [phone] Reason for Visit * Reason Onset Date Comments Medication Question 08/30/2023 Encounter Details Date Type Department Care Team (Late st Contact Info) Description 08/30/2023 Telephone Family Practice [facility] [address] [place] [address] Gregory Rausch MD [address] [...] as of this encounter (statuses as of 08/30/2023) Medications Medication Sig Dispensed Refills Start Date [...] hypoglycemia E11.9 100 Tab 3 07/06/2021 Active 3P [employer] Verio w/Device Kit Use up to 4 times a day E11.9 1 Kit 0 02/10/2022 Active 3P BiopharmaceuticalsTouch Delica Lancets 33G TEST 4 TIMES DAILY [...] A1c goal of less than 7.0% ([facility]),Type 2 diabetes mellitus with diabetic mononeuropathy, with long-term current use of insulin ([facility]),Type 2 diabetes mellitus with both eyes affected by mild nonproliferative retinopathy and macular edema, with long-term current use of insulin ([facility]),Type 2 diabetes mellitus with stage 3a chronic kidney disease, with long-term current use of insulin ([facility]) Inject 0.75 mL under the skin once a week. 9 mL 3 02/22/2023 Active Fluticasone Propionate 50 MCG/ACT Nasal Suspension (Flonase)Indications: Dizziness Administer 2 Sprays into each nostril in the morning. 16 g 3 03/01/2023 Active metOLazone 2.5 MG Oral Tablet (Zaroxolyn)Indication s:Acute on chronic heart failure with preserved ejection fraction (HFpEF) ([facility]) One tablet one morning twice per [...] ER 10 MEQ Oral Tablet Extended ReleaseIndications:Ac [place] on chronic heart failure with preserved ejection fraction (HFpEF) ([facility]) Take 1 Tablet by mouth in [...] A1c goal of less than 7.0% ([facility]),Type 2 diabetes mellitus with stage 3a chronic kidney disease, with long-term current use of insulin ([facility]) Inject 30 Units under the skin at bedtime. 6 mL 2 07/31/2023 Active NovoLOG FlexPen 100 UNIT/ML Subcutaneous Solution Pen-injector (insulin aspart)Indications:Ty pe 2 diabetes mellitus with hemoglobin A1c goal of less than 7.0% ([facility]),Type 2 diabetes mellitus with stage 3a chronic kidney disease, with long-term current use of insulin ([facility]) Injected under the skin BEFORE MEALS, 3 times per day: 2 units per 50 when glucose is over 200 units. TDD: 50. ICD10: E11.9. 15 mL 2 07/31/2023 Active BD Pen Needle Short U/F 31G X 8 MMIndications:Type 2 diabetes mellitus with hemoglobin A1c goal of less than 7.0% ([facility]),Type 2 diabetes mellitus with stage 3a chronic kidney disease, with long-term current use of insulin ([facility]) Use with insulin 4 times daily 400 Each 3 07/31/2023 Active metFORMIN HCl 1000 MG Oral Tablet (Glucophage) Take 1 Tablet by mouth 2 times a day with morning and evening meals. 0 Active Gaviscon 80-14.2 MG Oral Tablet Chewable (Alum Hydroxide-Mag Trisilicate) Take by mouth as needed. 0 Active Nystatin 382913 UNIT/GM External Powder (Nystop)Indications:C andidal intertrigo APPLY TOPICALLY TO AFFECTED AREA 3 TIMES A DAY. APPLY TO AFFECTED AREAS 60 g 1 08/20/2023 Active Atorvastatin Calcium 40 MG Oral Tablet (Lipitor)Indications: Heart failure, systolic, due to idiopathic cardiomyopathy ([facility]),S/P aortic valve replacement,HTN, goal below 140/80,Dyslipidemia, goal LDL below 70 TAKE 1 TABLET BY MOUTH DAILY. TO PREVENT HEART ATTACK/STROKE, PROTECT KIDNEY, AND CHOLESTEROL 90 Tablet 1 08/20/2023 Active Meclizine HCl 25 MG Oral Tablet (Antivert)Indications :Muscle tension headache TAKE 2 TABLETS BY MOUTH TWICE A DAY 360 Tablet 3 08/20/2023 Active documented as of this encounter (statuses as of 08/30/2023) Active Problems Problem Noted Date Diagnosed Date [...] eye 09/28/2020 Coronary artery disease invo lving [place] coronary artery of [place] heart without angina pectoris 12/16/2019 Last Assessment [...] as of this encounter (statuses as of 08/30/2023) Resolved Problems Problem Noted Date Diagnosed Date [...] 12/21/2016 Diabetes mellitus 01/05/2014 12/21/2016 LEYVA RESEARCH OTHER*[id number] 01/05/2014 12/21/2016 Axillary pain 11/03/2013 12/21/2016 Obesity, [...] 12/21/2016 FOLLOWING SURGERY, UNSPECIFI ED ([facility] BSO 08/25/2011) 08/26/2011 12/21/2016 ADVANCE DIRECTIVE INFORMATION 04/17/2011 12/21/2016 Overview: Yes, Patient instructed to provide copy of advance directive for provider to review and to be scanned into Electronic Medical Record ADVANCE DIRECTIVE INFORMATION 03/01/2011 12/21/2016 Overview: Yes, Patient instructed to provide copy of advance directive for provider to review and to be scanned into Electronic Medical Record [facility] V710 Clinical Trial*[id number] 12/22/2010 04/14/2011 S/P aortic valve replacement 12/01/2010 08/26/2011 S/P AORTIC VALVE REPLACEMENT - #25 pericardial Mc valve 11/01/2010 06/28/2018 Overview: Aortic valve replacement with #25 pericardial Mc valve, model 2800TFX, serial number [id number] (Dr. Walker) [facility] V710 Clinical Trial*[id number] 10/18/2010 11/21/2010 Body mass index (BMI) of [...] as of this encounter (statuses as of 08/30/2023) Immunizations Name Administration Dates Next Due COVID-19 mRNA, LNP-s, No Pre serve, 2-Dose Series (Moderna) 10/25/2021,02/16/2021,01/18/2021 HEP A - Hepatitis A (Adult > 18 yrs) 06/07/2018, 12/05/2017 Hepatitis B, 20+ yrs 06/07/2018,01/08/20 18,12/05/2017,06/15,10/27/2013,09/12/2013 Pneumococcal Conjugate Vacci ne, 20-valent ([id number]) 06/22/2023 Pneumococcal Polysaccharide PPV23 (Pneumovax) 01/02/2008 SEASONAL [...] Miscellaneous Notes * Telephone Encounter - Arina Simons CPhT - 08/30/2023 12:48 PM EST Patient requesting refills for Metoprolol Tartrate 25 MG Oral Tablet (Lopressor) . Upon chart review, medication is listed as as of 08/03/23 . Please advise if you wish to continue this therapy for the patient. Thank you, Arina Simons Flight Engineer [employer] [facility] ([facility] (formerly Telepharmacy) 08/30/2023, 12:48 PM documented in this encounter Plan of Treatment Upcoming Encounters Date Type Department Care Team (Late st Contact Info) Description 09/06/2023 4:00 PM EST Home Visit [facility] [address] [place] [address] Jaycee Sorto RN [address] [place] [address] 09/11/2023 1:40 PM EST Office Visit Pharmacy, [facility] [address] [place] [address] Pharmacist1, [facility] [address] [facility] [place] [address] 10/15/2023 11:00 AM EST Office Visit Cardiology, [facility] [address] [place] [address] Feli Teague PA-C [address] [place] [address] 02/04/2024 10:20 AM EDT Office Visit Family Practice [facility] [address] [place] [address] Gregory Rausch MD [address] [place] [address] Scheduled Procedures Name Priority Associated Diagnoses Date/Ti [...] Additional history exists CKD PHOS USE SMARTSET 76765 06/18/202405/26, 06/16/2023, 06/15/2023, Additional history exists CKD HGB USE SMARTSET 11823 07/31/202407/31, 07/31/2023, 06/29/2023, Additional history exists COLONOSCOPY-EVERY [...] this encounter Medical Devices Implanted Type Area Process Helper Device Identifier Shelf Expiration Date Model / Serial / Lot Cath Roselia Single Lumen - [id number] Implanted:Qty : 1 on 03/12/2008 at OR [facility] Left: Chest [employer] *DO NOT USE* 07/25/2012 21-4053-24 / / [id number] Valve Tarsha Aortic [id number] - [id number] Implanted:Qty : 1 on 11/01/2010 at OR [facility] N/A: Heart [employer] DANIEL 05/20/2012 2800TFX-25 / / [id number] Mesh Soft [id number] - [id number] Implanted:Qty : 1 on 10/10/2019 by Gigi Hendrickson MD at [facility] N/A: Abdomen CR BARD : DAVOL [id number] 05/21/2024 [id number] / / [id number] Lens 22.5 Sn60wf - [id number] - [id number] Implanted:Qty : 1 on 09/15/2020 by Renaldo Cook, Cece Acosta MD at [facility] Right: Eye IVA : SURGICAL [id number] 05/13/2025 SN60 WF.225 / [id number] / [id number] documented as of this encounter Advance [...] the patient have Health Care Power of Epidemiology Intern? No Full Code 10/10/2019 8:40 AM 10/10/2019 [...] patient or by statute hierarchy) Care Teams Physician Anesthesiologist Relationship Specialty Start Date End Date Gregory Rausch MD [address] [place] [address] PCP - General Family Medicine 02/12/20 documented as of this encounter
--- OUTSIDE RECORDS SUMMARY | 2023-10-27 12:15 | External Medical Summary | Summary of Care ---
Author Name Unknown Organization [facility] Address [address] [place] [address] Phone [phone] Care Team Providers Care Us Administrative Law Judge Name Role Phone Gregory Rausch MD Primary Care Provider [phone] Reason for Visit * Reason Onset Date Comments Medication Question 08/30/2023 Encounter Details Date Type Department Care Team (Late st Contact Info) Description 08/30/2023 Telephone Family Practice [facility] [address] [place] [address] Gregory Rausch MD 132 [...] hypoglycemia E11.9 100 Tab 3 1 Active [employer] Verio w/Device Kit Use up to 4 times a day E11.9 1 Kit 0 2 Active QVIVOTouch Delica Lancets 33G TEST 4 TIMES DAILY [...] ER 10 MEQ Oral Tablet Extended ReleaseIndications:Ac [place] on chronic heart failure with preserved ejection [...] current use of insulin ([facility]) Injected under the skin BEFORE [...] by mouth as needed. 0 Active Nystatin 155541 UNIT/GM External Powder (Nystop)Indications:C andidal intertrigo APPLY [...] eye 09/28/2020 Coronary artery disease invo lving [place] coronary artery of [place] heart without angina pectoris 12/16/2019 Last Assessment [...] 12/21/2016 Diabetes mellitus 01/05/2014 12/21/2016 LEYVA RESEARCH OTHER*[id number] 01/05/2014 12/21/2016 Axillary pain 11/03/2013 12/21/2016 Obesity, [...] cath 09/201008/26/2011 12/21/2016 FOLLOWING SURGERY, UNSPECIFI ED ([facility] BSO 08/25/2011) 08/26/2011 12/21/2016 ADVANCE DIRECTIVE INFORMATION 04/17/2011 12/21/2016 Overview: Yes, Patient instructed to provide copy of advance directive for provider to review and to be scanned into Electronic Medical Record ADVANCE DIRECTIVE INFORMATION 03/01/2011 12/21/2016 Overview: Yes, Patient instructed to provide copy of advance directive for provider to review and to be scanned into Electronic Medical Record [facility] V710 Clinical Trial*[id number] 12/22/2010 04/14/2011 S/P aortic valve replacement 12/01/2010 08/26/2011 S/P AORTIC VALVE REPLACEMENT - #25 pericardial Mc valve 11/01/2010 06/28/2018 Overview: Aortic valve replacement with #25 pericardial Mc valve, model 2800TFX, serial number [id number] (Dr. Walker) [facility] V710 Clinical Trial*[id number] 10/18/2010 11/21/2010 Body mass index (BMI) of [...] 06/07/2018,01/08/20 18,12/05/2017,06/15,10/27/2013,09/12/2013 Pneumococcal Conjugate Vacci ne, 20-valent ([id number]) 06/22/2023 Pneumococcal Polysaccharide PPV23 (Pneumovax) 01/02/2008 SEASONAL [...] of less than 7.0% ([facility]) E11.9 DANYELLE on CPAP G47.33 [...] stent placement Z95.5 Schizoaffective disorder, bipolar type ([facility]) F25.0 Medical marijuana use Z79.899 Coronary artery disease involving [place] coronary artery of [place] heart without angina pectoris I25.10 Cystoid macular edema of right eye H35.351 Chronic kidney disease, stage 3a N18.31 Type 2 diabetes mellitus with stage 3a chronic kidney disease, with long-term current use of insulin ([facility]) E11.22, N18.31, Z79.4 Type 2 diabetes mellitus with both eyes affected by mild nonproliferative retinopathy and macular edema, with long-term current use of insulin ([facility]) E11.3213, Z79.4 Type 2 diabetes mellitus with diabetic peripheral angiopathy without gangrene ([facility]) E11.51 Obesity, Class I, BMI [...] for the patient. Thank you, Arina Simons Director Of Marketing Operations [facility] ([facility]) (formerly Telepharmacy) 08/30/2023, 12:48 PM documented in this encounter Plan of Treatment Upcoming Encounters Date Type Department Care Team (Late st Contact Info) Description 09/06/2023 4:00 PM EST Home Visit [facility], [facility] [address] [address] Jaycee Sorto RN [address] [place] [address] 09/11/2023 1:40 PM EST Office Visit [facility], [facility] [address] [address] [facility]1, [facility] [address] [address] 10/15/2023 11:00 AM EST Office Visit Cardiology, [facility] [address] [address] Feli Teague, [employer] [address] [place] [address] 02/04/2024 10:20 AM EDT Office Visit Family Practice [facility] [address] [address] Gregory Rausch MD [address] [place] [address] Scheduled Procedures Name Priority Associated Diagnoses Date/Ti [...] Additional history exists CKD PHOS USE SMARTSET 19131 06/18/202405/26, 06/16/2023, 06/15/2023, Additional history exists CKD HGB USE SMARTSET 41545 07/31/202407/31, 07/31/2023, 06/29/2023, Additional history exists COLONOSCOPY-EVERY [...] this encounter Medical Devices Implanted Type Area Public Health Worker Device Identifier Shelf Expiration Date Model / Serial / Lot Cath Roselia Single Lumen - [id number] Implanted:Qty : 1 on 03/12/2008 at OR [facility] Left: Chest [employer] *DO NOT USE* 07/25/2012 21-4053-24 / / [id number] Valve Tarsha Aortic [id number] - [id number] Implanted:Qty : 1 on 11/01/2010 at OR [facility] N/A: Heart MC LIF[employer]CIEp[employer] DANIEL 05/20/2012 2800TFX-25 / / [id number] Mesh Soft [id number] - [id number] Implanted:Qty : 1 on 10/10/2019 by Gigi Hendrickson MD at OR [facility] N/A: Abdomen CR BARD : DAVOL [id number] 05/21/2024 [id number] / / [id number] Lens 22.5 Sn60wf - [id number] - [id number] Implanted:Qty : 1 on 09/15/2020 by Cece Roland MD at OR [facility] Right: Eye IVA : SURGICAL [id number] 05/13/2025 SN60 WF.225 / [id number] / [id number] documented as of this encounter Advance [...] the patient have Health Care Power of Per Diem Registered Nurse? No Full Code 10/10/2019 8:40 AM 10/10/2019 [...] patient or by statute hierarchy) Care Teams Us Administrative Law Judge Relationship Specialty Start Date End Date Gregory Rausch MD [address] [place] [address] PCP - General Family Medicine 02/12/20 documented as of this encounter
--- OUTSIDE RECORDS SUMMARY | 2023-10-27 12:15 | External Medical Summary | Summary of Care ---
Author Name Unknown Organization [facility] Address [address] [place] [address] Phone [phone] Care Team Providers Care Tie Presser Name Role Phone Gregory Rausch MD Primary Care Provider [phone] [phone] Reason for Visit * Reason Comments Diabetes Follow-Up Dosage Adjustment Via Phone (anticoag Cl inic) Encounter Details Date Type Department Care Team (Latest Contact Info) Description 08/10/2023 1:00 PM [facility] [address] [place] [address] Pharmacist1, [facility] [address] [facility] [place] [address] Type 2 diabetes mellitus with hemoglobin A1c goal of less than 7.0% ([facility])*; Type 2 diabetes mellitus with stage 3a chronic kidney disease, with long-term current use of insulin ([facility]); Type 2 diabetes mellitus with diabetic peripheral angiopathy without gangrene, with long-term current use of insulin ([facility]); Type 2 diabetes mellitus with both eyes affected by mild nonproliferative retinopathy and macular edema, with long-term current use of insulin ([facility]) Allergies Active Allergy Reactions Criticality Noted Date Comments Adhesive Tape 07/02/2017 Can tolerate band-aids Glycerin Other (Please comment) 03/12/2008 Topical agents with glycein-burning & itching Lactose 12/09/2014 Dairy - gas Lisinopril Cough 01/21/2010 Monosodium Glutamate Edema Other 03/12/2008 Hands and feet Penicillins Rash 11/14/2007 documented as of this encounter (statuses as of 08/10/2023) Medications Medication Sig Dispensed Refills Start Date [...] hypoglycemia E11.9 100 Tab 3 07/06/2021 Active Nerium BiotechnologyToAutopilot Verio w/Device Kit Use up to 4 times a day E11.9 1 Kit 0 02/10/2022 Active Sand Technology Delica Lancets 33G TEST 4 TIMES DAILY [...] A1c goal of less than 7.0% ([facility]) Use as directed. Use 1 sensor every 10 days E 11.9 9 Each 3 01/16/2023 Active Dexcom G6 TransmitterIndication s:Type 2 diabetes mellitus with hemoglobin A1c goal of less than 7.0% ([facility]) Use as directed. Use 1 transmitter every 90 days E 11.9 1 Each 3 01/16/2023 Active Atorvastatin Calcium 40 MG Oral Tablet (Lipitor)Indications: Heart failure, systolic, due to idiopathic cardiomyopathy ([facility]),S/P aortic valve replacement,HTN, goal below 140/80,Dyslipidemia, goal LDL below 70 TAKE 1 TABLET BY MOUTH DAILY. TO PREVENT HEART ATTACK/STROKE, PROTECT KIDNEY, AND CHOLESTEROL 90 Tablet 1 01/18/2023 Active Ozempic (2 MG/DOSE) 8 MG/3ML Subcutaneous Solution Pen-injector (Semaglutide (2 MG/DOSE))Indications: Type 2 diabetes mellitus with hemoglobin A1c goal of less than 7.0% ([facility]),Type 2 diabetes mellitus with diabetic mononeuropathy, with long-term current use of insulin ([facility]),Type 2 diabetes mellitus with both eyes affected by mild nonproliferative retinopathy and macular edema, with long-term current use of insulin ([facility]),Type 2 diabetes mellitus with stage 3a chronic kidney disease, with long-term current use of insulin ([facility]) Inject 0.75 mL under the skin once a week. 9 mL 3 02/22/2023 Active Fluticasone Propionate 50 MCG/ACT Nasal Suspension (Flonase)Indications: Dizziness Administer 2 Sprays into each nostril in the morning. 16 g 3 03/01/2023 Active metOLazone 2.5 MG Oral Tablet (Zaroxolyn)Indication s:Acute on chronic heart failure with preserved ejection fraction (HFpEF) ([facility]) One tablet one morning [...] MEDICATIONS 90 Tablet 2 05/05/2023 Active Nystatin 049319 UNIT/GM External Powder (Nystop)Indications:C andidal intertrigo Apply topically to affected area 3 times a day. Apply to affected areas 60 g 1 05/11/2023 Active OneTouch Verio In Vitro Strip (Glucose Blood) Use up to 4 times a day E11.9 100 Strip 11 07/26/2023 Active Potassium Chloride Shannon ER 10 MEQ Oral Tablet Extended ReleaseIndications:Ac [place] on chronic heart failure with preserved ejection fraction (HFpEF) ([facility]) Take 1 Tablet by [...] A1c goal of less than 7.0% ([facility]),Type 2 diabetes mellitus with stage 3a chronic kidney disease, with long-term current use of insulin ([facility]) Inject 30 Units under the skin at bedtime. 6 mL 2 07/31/2023 Active NovoLOG FlexPen 100 UNIT/ML Subcutaneous Solution Pen-injector (insulin aspart)Indications:Ty pe 2 diabetes mellitus with hemoglobin A1c goal of less than 7.0% ([facility]),Type 2 diabetes mellitus with stage 3a chronic kidney disease, with long-term current use of insulin ([facility]) Injected under the skin BEFORE MEALS, 3 times per day: 2 units per 50 when glucose is over 200 units. TDD: 50. ICD10: E11.9. 15 mL 2 07/31/2023 Active BD Pen Needle Short U/F 31G X 8 MMIndications:Type 2 diabetes mellitus with hemoglobin A1c goal of less than 7.0% ([facility]),Type 2 diabetes mellitus with stage 3a chronic kidney disease, with long-term current use of insulin ([facility]) Use with insulin 4 times daily 400 Each 3 07/31/2023 Active metFORMIN HCl 1000 MG Oral Tablet (Glucophage) Take 1 Tablet by mouth 2 times a day with morning and evening meals. 0 Active Gaviscon 80-14.2 MG Oral Tablet Chewable (Alum Hydroxide-Mag Trisilicate) Take by mouth as needed. 0 Active documented as of this encounter (statuses as of 08/10/2023) Active Problems Problem Noted Date Diagnosed Date [...] eye 09/28/2020 Coronary artery disease invo lving [place] coronary artery of [place] heart without angina pectoris 12/16/2019 Last Assessment [...] as of this encounter (statuses as of 08/10/2023) Resolved Problems Problem Noted Date Diagnosed Date [...] 12/21/2016 Diabetes mellitus 01/05/2014 12/21/2016 LEYVA RESEARCH OTHER*[id number] 01/05/2014 12/21/2016 Axillary pain 11/03/2013 12/21/2016 Obesity, [...] 09/2010 08/26/2011 12/21/2016 FOLLOWING SURGERY, UNSPECIFI ED ([facility]SO 08/25/2011) 08/26/2011 12/21/2016 ADVANCE DIRECTIVE INFORMATION 04/17/2011 12/21/2016 Overview: Yes, Patient instructed to provide copy of advance directive for provider to review and to be scanned into Electronic Medical Record ADVANCE DIRECTIVE INFORMATION 03/01/2011 12/21/2016 Overview: Yes, Patient instructed to provide copy of advance directive for provider to review and to be scanned into Electronic Medical Record [facility] V710 Clinical Trial*[id number] 12/22/2010 04/14/2011 S/P aortic valve replacement 12/01/2010 08/26/2011 S/P AORTIC VALVE REPLACEMENT - #25 pericardial Mc valve 11/01/2010 06/28/2018 Overview: Aortic valve replacement with #25 pericardial Mc valve, model 2800TFX, serial number [id number] (Dr. Walker) [facility] V710 Clinical Trial*[id number] 10/18/2010 11/21/2010 Body mass index (BMI) of [...] as of this encounter (statuses as of 08/10/2023) Immunizations Name Administration Dates Next Due COVID-19 mRNA, LNP-s, No Pre serve, 2-Dose Series (Moderna) 10/25/2021,02/16/2021,01/18/2021 HEP A - Hepatitis A (Adult > 18 yrs) 06/07/2018, 12/05/2017 Hepatitis B, 20+ yrs 06/07/2018,01/08/20 18,12/05/2017,06/15,10/27/2013,09/12/2013 Pneumococcal Conjugate Vacci ne, 20-valent ([id number]) 06/22/2023 Pneumococcal Polysaccharide PPV23 (Pneumovax) 01/02/2008 SEASONAL [...] this encounter Progress Notes * Neeraj Matthew, [facility] - 08/10/2023 12:56 PM EST Medication Therapy Disease Management Clinic [...] Disposition: Routine follow-up Total call duration was 23 minutes. Patient has Omnipod 5 at home. We are trying to schedule a training time for her that works with both her son and daughter. The Dexcom G6 was to ship but it is now on backorder. The patient or her family will call when it arrives so we can schedule training. DIABETES: Current diabetic medications: Ozempic 2mg every Sunday Metformin 1000mg twice daily START: Tresiba 30 units daily START: Novolog CF over 200 Medication Injection Site: Abdomen Lifestyle: Diet: unchanged History of Treatment Barriers: Lifestyle: None Therapy considerations: Cost Medication: None Glucose Review/SMBG: No low BG. Some high readings Hypoglycemia: Does your blood sugar go below 70 mg/dL? No Hyperglycemia symptoms present: none Goal < Recent Labs Units 07/31/23 1134 04/09/23 1344 [...] Lisinopril BP Readings from Last 3 Encounters: 07/31/23 130/62 07/28/23 140/72 07/26/23 126/58 Blood pressure at goal: yes HYPERLIPIDEMIA: Patient is taking moderate or high intensity statin: yes, Atorvastatin 40mg daily HEALTH MAINTENANCE REVIEW: Health Maintenance Due Topic Date Due HIV Screening Never done Depression, Most Recent Score >= 10 (will fire each visit until score < 10) 12/18/2020 Diabetic Foot Exam 2021 Diabetic Eye Exam 10/06/2022 COVID-19 Vaccine ( season) 2023 ASSESSMENT & PLAN: ICD-10-CM 1. Type 2 diabetes mellitus with hemoglobin A1c goal of less than 7.0% ([facility]) E11.9 2. Type 2 diabetes mellitus with stage 3a chronic kidney disease, with long-term current use of insulin ([facility]) E11.22 N18.31 Z79.4 3. Type 2 diabetes mellitus with diabetic peripheral angiopathy without gangrene, with long-term current use of insulin ([facility]) E11.51 Z79.4 4. Type 2 diabetes mellitus with both eyes affected by mild nonproliferative retinopathy and macular edema, with long-term current use of insulin ([facility]) E11.3213 Z79.4 BG Readings - Blood sugars not available. Medications - Reviewed current regimen, patient is adherent to regimen. She is having more nausea now and would like to try Ozempic 1mg (decreased dose) to see if this improves. Diet, Exercise, Lifestyle - No significant lifestyle changes since last visit. Discussed with patient today. Patient is agreeable to SMBG 4 time(s) daily. Patient aware to contact clinic if any hypoglycemia before next visit. MEDICATION CHANGES: yes, see below; preferred pharmacy: [facility] Diabetic Medications: DECREASE: Ozempic 1mg every Sunday (1mg = 36 clicks) Metformin 1000mg twice daily INCREASE: Tresiba 33 units daily Novolog CF 2 over 200 HEALTH MAINTENANCE INTERVENTIONS: Labs: Ordered & Scheduled: Urine Microalbumin Immunizations: Up to Date Foot Exam: phone call visit Eye Exam: needs completed Annual Wellness Visit: N/A FOLLOW UP: Return to clinic in 4 weeks 09/11/2023 Neeraj Romero RPh, LETICIAP, CDE Clinical Pharmacist Medication Therapy Management Clinic 08/10/2023 12:57 PM documented in this encounter Plan of Treatment Upcoming Encounters Date Type Department Care Team (Late st Contact Info) Description 08/30/2023 10:00 AM EST Home Visit [facility], [facility] [address] [facility] [place] [address] Jaycee Sorto, RN [address] [place] [address] 09/11/2023 1:00 PM EST Telemedicine Pharmacy, [facility] [address] [facility] [place] [address] Pharmacist1, [facility] [address] [facility] [place] [address] 10/15/2023 11:00 AM EST Office Visit Cardiology, [facility] [address] [place] [address] Feli Teague PA-C [address] [place] [address] 02/04/2024 10:20 AM EDT Office Visit [facility] [place] [address] Gregoyr Rausch MD [address] [facility] [place] [address] Scheduled Procedures Name Priority Associated Diagnoses Date/Ti [...] Additional history exists CKD PHOS USE SMARTSET 85237 06/18/202405/26, 06/16/2023, 06/15/2023, Additional history exists CKD HGB USE SMARTSET 91726 07/31/202407/31, 07/31/2023, 06/20/2023, Additional history exists COLONOSCOPY-EVERY [...] this encounter Medical Devices Implanted Type Area Drive Worker Device Identifier Shelf Expiration Date Model / Serial / Lot Cath Roselia Single Lumen - [id number] Implanted:Qty : 1 on 03/12/2008 at OR [facility] Left: Chest [employer] *DO NOT USE* 07/25/2012 21-4053-24 / / [id number] Valve Tarsha Aortic [id number] - [id number] Implanted:Qty : 1 on 11/01/2010 at OR [facility] N/A: Heart [employer] DANIEL 05/20/2012 [id number]-25 / / [id number] Mesh Soft [id number] - [id number] Implanted:Qty : 1 on 10/10/2019 by Gigi Hendrickson MD at [place] [facility] N/A: Abdomen CR BARD : DAVOL [id number] 05/21/2024 [id number] / / [id number] Lens 22.5 Sn60wf - [id number] - [id number] Implanted:Qty : 1 on 09/15/2020 by Renaldo Cook, Cece Acosta MD at OR [facility] Right: Eye IVA : SURGICAL [id number] 05/13/2025 SN60 WF.225 / [id number] / [id number] documented as of this encounter Visit Diagnoses Diagnosis Type 2 diabetes mellitus with hemoglobin A1c goal of less than 7.0% (HCC)- Primary Type 2 diabetes mellitus with stage 3a chronic kidney disease, with long-term current use of insulin (HCC) Type 2 diabetes mellitus with diabetic peripheral angiopathy without gangrene, with long-term current use of insulin ([facility]) Type 2 diabetes mellitus with both eyes affected by mild nonproliferative retinopathy and macular edema, with long-term current use of insulin ([facility]) documented in this encounter Advance Directives Latest [...] the patient have Health Care Power of Organ Tuner Electronic? No Full Code 10/10/2019 8:40 AM 10/10/2019 [...] patient or by statute hierarchy) Care Teams Tie Presser Relationship Specialty Start Date End Date Gregory Rausch MD [address] [place] [address] PCP - General Family Medicine 02/12/20 documented as of this encounter
--- OUTSIDE RECORDS SUMMARY | 2023-10-27 12:15 | External Medical Summary | Summary of Care ---
Author Name Unknown Organization [facility] Address [address] [place] [address] Phone [phone] Care Team Providers Care Nursing Informatics Specialist Name Role Phone Gregory Rausch MD Primary Care Provider [phone] Encounter Details Date Type Department Care Team (Late st Contact Info) Description 08/06/2023 Telephone Pharmacy Call Center [phone] [place] [address] [facility] [address] [place] [address] Allergies Active Allergy Reactions Criticality Noted Date Comments Adhesive Tape 07/02/2017 Can tolerate band-aids Glycerin Other (Please comment) 03/12/2008 Topical agents with glycein-burning & itching Lactose 12/09/2014 Dairy - gas Lisinopril Cough 01/21/2010 Monosodium Glutamate Edema Other 03/12/2008 Hands and feet Penicillins Rash 11/14/2007 documented as of this encounter (statuses as of 08/20/2023) Medications Medication Sig Dispensed Refills Start Date [...] hypoglycemia E11.9 100 Tab 3 07/06/2021 Active Milestone SoftwareTouch Verio w/Device Kit Use up to 4 times a day E11.9 1 Kit 0 02/10/2022 Active Milestone SoftwareTouch Delica Lancets 33G TEST 4 TIMES [...] goal of less than 7.0% ([facility]) Use as directed. Use 1 transmitter every 90 days E 11.9 1 Each 3 01/16/2023 Active Atorvastatin Calcium 40 MG Oral Tablet (Lipitor)Indications: Heart failure, systolic, due to idiopathic cardiomyopathy ([facility]),S/P aortic valve replacement,HTN, goal below 140/80,Dyslipidemia, goal LDL below 70 TAKE 1 TABLET BY MOUTH DAILY. TO PREVENT HEART ATTACK/STROKE, PROTECT KIDNEY, AND CHOLESTEROL 90 Tablet 1 01/18/2023 Active Ozempic (2 MG/DOSE) 8 MG/3ML Subcutaneous Solution Pen-injector (Semaglutide (2 MG/DOSE))Indications: Type 2 diabetes mellitus with hemoglobin A1c goal of less than 7.0% ([facility]),Type 2 diabetes mellitus with diabetic mononeuropathy, with long-term current use of insulin ([facility]),Type 2 diabetes mellitus with both eyes affected by mild nonproliferative retinopathy and macular edema, with long-term current use of insulin ([facility]),Type 2 diabetes mellitus with stage 3a chronic kidney disease, with long-term current use of insulin ([facility]) Inject 0.75 mL under the skin once a week. 9 mL 3 02/22/2023 Active Fluticasone Propionate 50 MCG/ACT Nasal Suspension (Flonase)Indications: Dizziness Administer 2 Sprays into each nostril in the morning. 16 g 3 03/01/2023 Active metOLazone 2.5 MG Oral Tablet (Zaroxolyn)Indication s:Acute on chronic heart failure with preserved ejection fraction (HFpEF) ([facility]) One tablet one morning twice per week [...] MEDICATIONS 90 Tablet 2 05/05/2023 Active Nystatin 921102 UNIT/GM External Powder (Nystop)Indications:C andidal intertrigo Apply [...] with preserved ejection fraction (HFpEF) ([facility]) Take 1 Tablet by mouth in the [...] goal of less than 7.0% ([facility]),Type 2 diabetes mellitus with stage 3a chronic kidney disease, with long-term current use of insulin ([facility]) Inject 30 Units under the skin at bedtime. 6 mL 2 07/31/2023 Active NovoLOG FlexPen 100 UNIT/ML Subcutaneous Solution Pen-injector (insulin aspart)Indications:Ty pe 2 diabetes mellitus with hemoglobin A1c goal of less than 7.0% ([facility]),Type 2 diabetes mellitus with stage 3a chronic kidney disease, with long-term current use of insulin ([facility]) Injected under the skin BEFORE MEALS, 3 times per day: 2 units per 50 when glucose is over 200 units. TDD: 50. ICD10: E11.9. 15 mL 2 07/31/2023 Active BD Pen Needle Short U/F 31G X 8 MMIndications:Type 2 diabetes mellitus with hemoglobin A1c goal of less than 7.0% ([facility]),Type 2 diabetes mellitus with stage 3a chronic kidney disease, with long-term current use of insulin ([facility]) Use with insulin 4 times daily 400 Each 3 07/31/2023 Active metFORMIN HCl 1000 MG Oral Tablet (Glucophage) Take 1 Tablet by mouth 2 times a day with morning and evening meals. 0 Active Gaviscon 80-14.2 MG Oral Tablet Chewable (Alum Hydroxide-Mag Trisilicate) Take by mouth as needed. 0 Active documented as of this encounter (statuses as of 08/20/2023) Active Problems Problem Noted Date Diagnosed Date [...] eye 09/28/2020 Coronary artery disease invo lving [place] coronary artery of [place] heart without angina pectoris 12/16/2019 Last Assessment [...] as of this encounter (statuses as of 08/20/2023) Resolved Problems Problem Noted Date Diagnosed Date [...] 12/21/2016 Diabetes mellitus 01/05/2014 12/21/2016 LEYVA RESEARCH OTHER*[id number] 01/05/2014 12/21/2016 Axillary pain 11/03/2013 12/21/2016 Obesity, [...] cath 09/201008/26/2011 12/21/2016 FOLLOWING SURGERY, UNSPECIFI ED ([facility] BSO 08/25/2011) 08/26/2011 12/21/2016 ADVANCE DIRECTIVE [...] Medical Record [facility] V710 Clinical Trial*[id number] 12/22/2010 04/14/2011 S/P aortic valve replacement 12/01/2010 08/26/2011 S/P AORTIC VALVE REPLACEMENT - #25 pericardial Mc valve 11/01/2010 06/28/2018 Overview: Aortic valve replacement with #25 pericardial Mc valve, model 2800TFX, serial number [id number] (Dr. Walker) [facility] V710 Clinical Trial*[id number] 10/18/2010 11/21/2010 Body mass index (BMI) of [...] as of this encounter (statuses as of 08/20/2023) Immunizations Name Administration Dates Next Due COVID-19 mRNA, LNP-s, No Pre serve, 2-Dose Series (Moderna) 10/25/2021,02/16/2021,01/18/2021 HEP A - Hepatitis A (Adult > 18 yrs) 06/07/2018, 12/05/2017 Hepatitis B, 20+ yrs 06/07/2018,01/08/20 18,12/05/2017,06/15,10/27/2013,09/12/2013 Pneumococcal Conjugate Vacci ne, 20-valent ([id number]) 06/22/2023 Pneumococcal Polysaccharide PPV23 (Pneumovax) 01/02/2008 SEASONAL [...] encounter Miscellaneous Notes * Telephone Encounter - Cindi Jaime, [facility] - 08/06/2023 12:[address] Rausch, I completed an annual medication review with Ms. Rose and her daughter on Sunday- they were concerned that the metolazone was discontinued and were questioning if she still needed it. I educated them on what to watch out for and when to contact the office. Of note, they were questioning if she should still be taking the Azo daily to prevent UTIs. I recommended that she do for now given hyperglycemia, but will message MT to assist with this. Please advise if otherwise. Thanks! documented in this encounter Plan of Treatment Upcoming Encounters Date Type Department Care Team (Late st Contact Info) Description 09/06/2023 4:00 PM EST Home Visit [facility] [address] [facility] [address] [place] [address] Jaycee Sorto RN [address] [place] [address] 09/11/2023 1:40 PM EST Office Visit Pharmacy, [facility] [address] [place] [address] Pharmacist1, [facility] [address] [facility] [place] [address] 10/15/2023 11:00 AM EST Office Visit Cardiology, [facility] [address] [place] [address] Feli Teague PA-C [address] [place] [address] 02/04/2024 10:20 AM EDT Office Visit Family Practice [facility] [address] [place] [address] Gregory Rausch MD [address] [place] [address] Scheduled Procedures Name Priority Associated Diagnoses Date/Ti [...] Additional history exists CKD PHOS USE SMARTSET 73975 06/18/202405/26, 06/16/2023, 06/15/2023, Additional history exists CKD HGB USE SMARTSET 68395 07/31/202407/31, 07/31/2023, 06/20/2023, Additional history exists COLONOSCOPY-EVERY [...] Medical Devices Implanted Type Area Director Of Marketing Analytics Device Identifier Shelf Expiration Date Model / Serial / Lot Cath Roselia Single Lumen - [id number] Implanted:Qty : 1 on 03/12/2008 at OR [facility] Left: Chest [employer] *DO NOT USE* 07/25/2012 21-4053-24 / / [id number] Valve Tarsha Aortic [id number] - [id number] Implanted:Qty : 1 on 11/01/2010 at OR [facility] N/A: Heart [employer] 05/20/2012 2800TFX-25 / / [id number] Mesh Soft [id number] - [id number] Implanted:Qty : 1 on 10/10/2019 by Gigi Hendrickson MD at [place] [facility] N/A: Abdomen CR BARD : DAVOL [id number] 05/21/2024 [id number] / / [id number] Lens 22.5 Sn60wf - [id number] - [id number] Implanted:Qty : 1 on 09/15/2020 by Renaldo Cook, Cece Acosta MD at [facility] Right: Eye IVA : SURGICAL [id number] 05/13/2025 SN60 WF.225 / [id number] / [id number] documented as of this encounter Advance [...] the patient have Health Care Power of Lead Java J2Ee Developer? No Full Code 10/10/2019 8:40 AM 10/10/2019 [...] patient or by statute hierarchy) Care Teams Nursing Informatics Specialist Relationship Specialty Start Date End Date Gregory Rausch MD [address] [place] [address] PCP - General Family Medicine 02/12/20 documented as of this encounter
--- OUTSIDE RECORDS SUMMARY | 2023-10-27 12:15 | External Medical Summary | Summary of Care ---
Author Name Unknown Organization [facility] Address [address] [place] [address] Phone [phone] Care Team Providers Care Medical Apparatus Model Maker Name Role Phone Deon Rausch MD Primary Care Provider [phone] Reason for Visit * Reason Comments eRx-Medication Refill Encounter Details Date Type Department Care Team (Late st Contact Info) Description 08/20/2023 Refill Family Practice [facility] [address] [facility] [place] [address] Deon Rausch MD [address] [facility] [place] [address] Candidal intertrigo; Heart failure, systolic, due to idiopathic cardiomyopathy (HCC); S/P AORTIC VALVE REPLACEMENT - #25 pericardial Mc valve; HTN, goal below 140/80; Dyslipidemia, goal LDL below 70; Muscle tension headache Allergies Active Allergy Reactions Criticality Noted Date [...] to face 420 g 0 06/14/20 21 Active BD Glucose 5 GM Oral Tablet Chewable (Glucose)Indications :DM type 2, not at goal (HCC) 3 every 15 minutes until glucose is > 100 mg/dL for hypoglycemia E11.9 100 Tab 3 07/06/20 21 Active CitysearchToCupomNow Verio w/Device Kit Use up to 4 times a day E11.9 1 Kit 0 02/11/20 22 Active City[employer]ToC[employer]Now Delica Lancets 33G TEST 4 TIMES DAILY [...] pump 1 Kit 0 01/12/20 23 Active metFORMIN HCl 850 MG Oral Tablet (Glucophage) TAKE 1 TABLET BY MOUTH TWICE A DAY WITH BREAKFAST AND DINNER 180 Tablet 3 01/12/20 23 Active Additional Information Patient not taking.Reported on 08/03/2023 Dexcom G6 SensorIndications:Ty pe 2 diabetes mellitus with hemoglobin A1c goal of less than 7.0% (HCC) Use as directed. Use 1 sensor every 10 days E 11.9 9 Each 3 01/17/20 23 Active Dexcom G6 TransmitterIndicatio ns:Type 2 diabetes mellitus with hemoglobin A1c goal of less than 7.0% ([facility]) Use as directed. Use 1 transmitter every 90 days E 11.9 1 Each 3 01/17/20 23 Active Ozempic (2 MG/DOSE) 8 [...] skin at bedtime. 6 mL 2 07/31/20 23 Active NovoLOG FlexPen 100 UNIT/ML Subcutaneous Solution Pen-injector (insulin aspart)Indications:T ype 2 diabetes mellitus with hemoglobin A1c goal of less than 7.0% ([facility]),Type 2 diabetes mellitus with stage 3a chronic kidney disease, with long-term current use of insulin ([facility]) Injected under the skin BEFORE MEALS, 3 times per day: 2 units per 50 when glucose is over 200 units. TDD: 50. ICD10: E11.9. 15 mL 2 07/31/20 23 Active BD Pen Needle Short U/F 31G X 8 MMIndications:Type 2 diabetes mellitus with hemoglobin A1c goal of less than 7.0% ([facility]),Type 2 diabetes mellitus with stage 3a chronic kidney disease, with long-term current use of insulin ([facility]) Use with insulin 4 times daily 400 Each 3 07/31/20 23 Active metFORMIN HCl 1000 MG Oral Tablet (Glucophage) Take 1 Tablet by mouth 2 times a day with morning and evening meals. 0 Active Gaviscon 80-14.2 MG Oral Tablet Chewable (Alum Hydroxide-Mag Trisilicate) Take by mouth as needed. 0 Active Nystatin 167854 UNIT/GM External Powder (Nystop)Indications: Candidal intertrigo APPLY TOPICALLY TO AFFECTED AREA 3 TIMES A DAY. APPLY TO AFFECTED AREAS 60 g 1 08/20/20 23 Active Atorvastatin Calcium 40 MG Oral Tablet (Lipitor)Indications :Heart failure, systolic, due to idiopathic cardiomyopathy (HCC),S/P aortic valve replacement,HTN, goal below 140/80,Dyslipidemia, goal LDL below 70 TAKE 1 TABLET BY MOUTH DAILY. TO PREVENT HEART ATTACK/STROKE, PROTECT KIDNEY, AND CHOLESTEROL 90 Tablet 1 08/20/20 Active Meclizine HCl 25 MG Oral Tablet (Antivert)Indication s:Muscle tension headache TAKE 2 TABLETS BY MOUTH TWICE A DAY 360 Tablet 3 08/20/20 23 Active Meclizine HCl 25 MG Oral Tablet (Antivert)Indication s:Muscle tension headache TAKE 2 TABLETS BY MOUTH TWICE A DAY 360 Tablet 3 07/12/20 22 023 Discontinued Atorvastatin Calcium 40 MG Oral Tablet (Lipitor)Indications :Heart failure, systolic, due to idiopathic cardiomyopathy (HCC),S/P aortic valve replacement,HTN, goal below 140/80,Dyslipidemia, goal LDL below 70 TAKE 1 TABLET BY MOUTH DAILY. TO PREVENT HEART ATTACK/STROKE, PROTECT KIDNEY, AND CHOLESTEROL 90 Tablet 1 01/19/20 23 023 Discontinued Nystatin 756753 UNIT/GM External Powder (Nystop)Indications: Candidal intertrigo Apply topically to affected area 3 times a day. Apply to affected areas 60 g 1 05/11/20 23 023 Discontinued documented as of this encounter [...] eye 09/28/2020 Coronary artery disease invo lving [place] coronary artery of [place] heart without angina pectoris 12/16/2019 Last Assessment [...] 12/21/2016 Diabetes mellitus 01/05/2014 12/21/2016 LEYVA RESEARCH OTHER*[id number] 01/05/2014 12/21/2016 Axillary pain 11/03/2013 12/21/2016 Obesity, [...] cath 09/201008/26/2011 12/21/2016 FOLLOWING SURGERY, UNSPECIFI ED ([facility] BSO 08/25/2011) 08/26/2011 12/21/2016 ADVANCE DIRECTIVE INFORMATION 04/17/2011 12/21/2016 Overview: Yes, Patient instructed to provide copy of advance directive for provider to review and to be scanned into Electronic Medical Record ADVANCE DIRECTIVE INFORMATION 03/01/2011 12/21/2016 Overview: Yes, Patient instructed to provide copy of advance directive for provider to review and to be scanned into Electronic Medical Record [facility] V710 Clinical Trial*[id number] 12/22/2010 04/14/2011 S/P aortic valve replacement 12/01/2010 08/26/2011 S/P AORTIC VALVE REPLACEMENT - #25 pericardial Mc valve 11/01/2010 06/28/2018 Overview: Aortic valve replacement with #25 pericardial Mc valve, model 2800TFX, serial number [id number] (Dr. Walker) [facility] V710 Clinical Trial*[id number] 10/18/2010 11/21/2010 Body mass index (BMI) of [...] 06/07/2018,01/08/20 18,12/05/2017,06/15,10/27/2013,09/12/2013 Pneumococcal Conjugate Vacci ne, 20-valent ([id number]) 06/22/2023 Pneumococcal Polysaccharide PPV23 (Pneumovax) 01/02/2008 SEASONAL [...] Telephone Encounter - Deon Rausch MD - 08/20/2023 3:02 PM ESTSigned Prescriptions: Disp Refills Nystatin 352429 UNIT/GM External Powder (N*60 g 1 Sig: APPLY TOPICALLY TO AFFECTED AREA 3 TIMES A DAY. APPLY TO AFFECTED AREAS Authorizing Provider: DEON RAUSCH Atorvastatin Calcium 40 MG Oral Tablet (Li*90 Tab*1 Sig: TAKE 1 TABLET BY MOUTH DAILY. TO PREVENT HEART ATTACK/STROKE, PROTECT KIDNEY, AND CHOLESTEROL Authorizing Provider: DEON RAUSCH Meclizine HCl 25 MG Oral Tablet (Antivert) 360 Ta*3 Sig: TAKE 2 TABLETS BY MOUTH TWICE A DAY Authorizing Provider: DEON RAUSCH * Telephone Encounter - Briseida Kang LPN - 08/20/2023 2:02 PM ESTPending Prescriptions: Disp Refills Nystatin 567561 UNIT/GM External Powder [P*60 g 1 Sig: Apply topically to affected area 3 times a day. Apply to affected areas Atorvastatin Calcium 40 MG Oral Tablet [Ph*90 Tab*1 Sig: TAKE 1 TABLET BY MOUTH DAILY. TO PREVENT HEART ATTACK/STROKE, PROTECT KIDNEY, AND CHOLESTEROL Meclizine HCl 25 MG Oral Tablet [Pharmacy * 360 Ta*3 Sig: TAKE 2 TABLETS BY MOUTH TWICE A DAY * Telephone Encounter - Briseida Kang LPN - 08/20/2023 2:02 PM EST Did you pend patient's preferred pharmacy and medication before forwarding?yes Pharmacy[facility] [id number] [place] [address] Pending Prescriptions: Disp Refills Nystatin 554430 UNIT/GM External Powder (*60 g 1 Sig: APPLY TOPICALLY TO AFFECTED AREA 3 TIMES A DAY. APPLY TO AFFECTED AREAS Atorvastatin Calcium 40 MG Oral Tablet (L*90 Tab*1 Sig: TAKE 1 TABLET BY MOUTH DAILY. TO PREVENT HEART ATTACK/STROKE, PROTECT KIDNEY, AND CHOLESTEROL Meclizine HCl 25 MG Oral Tablet (Antivert*360 Ta*3 Sig: TAKE 2 TABLETS BY MOUTH TWICE A DAY Last Visit: 07/31/2023 (in office), Visit date not found (telemedicine) Next Visit: 02/04/2024 If no future appointments scheduled, and last appointment is greater than a year ago, please schedule patient for a follow-up appointment Last date the medication was ordered: 01/18/23 Is this request for a controlled substance?No [...] AM ALT 20 09/07/2020 10:58 AM HGBA1C 6.3 (H) 07/31/2023 11:34 AM HGBA1C 8.3 (H) 12/09/2019 01:49 PM * Telephone Encounter - Caroline Ellis - 08/20/2023 1:43 PM ESTPending Prescriptions: Disp Refills Nystatin 248718 UNIT/GM External Powder [P*60 g 1 Sig: Apply topically to affected area 3 times a day. Apply to affected areas Atorvastatin Calcium 40 MG Oral Tablet [Ph*90 Tab*1 Sig: TAKE 1 TABLET BY MOUTH DAILY. TO PREVENT HEART ATTACK/STROKE, PROTECT KIDNEY, AND CHOLESTEROL Meclizine HCl 25 MG Oral Tablet [Pharmacy *360 Ta*3 Sig: TAKE 2 TABLETS BY MOUTH TWICE A DAY documented in this encounter Plan of Treatment Upcoming Encounters Date Type Department Care Team (Late st Contact Info) Description 09/06/2023 4:00 PM EST Home Visit [facility], [facility] [address] [place] [address] Jaycee Sorto, RN [address] [place] [address] 09/11/2023 1:40 PM EST Office Visit Pharmacy, [facility] [address] [facility] [address] [place] [address] Pharmacist1, [facility] [address] [facility] [place] [address] 10/15/2023 11:00 AM EST Office Visit Cardiology, [facility] [address] [place] [address] Feli Teague, [place] [address] [place] [address] 02/04/2024 10:20 AM EDT Office Visit Family Practice [facility] [address] [place] [address] Deon Rausch MD [address] [place] [address] Scheduled Procedures Name Priority Associated Diagnoses Date/Ti [...] , 10/06/2021, Additional history exists COVID-19 Vaccine (2022-24 season) 2023 10/25/2021, 02/16/2021, 01/18/2021 B-12 09/08/2023 09/08/2022, 11/23, 08/30/2018, Additional history exists HbA1c 01/29/2024 07/31/2023, 03/24, 02/13/2023, Additional history exists GFR 01/31/2024 08/02/2023, 03/2023, 06/28/2023, Additional history exists Albumin/Creatinine Ratio 03/09/2024 023, 12/22/2022, 05/05/2021, Additional history exists TSH 06/06/2024 06/06/2023, 01/23, 12/22/2022, Additional history exists CKD PHOS USE SMARTSET 56474 06/18/202405/26, 06/16/2023, 06/15/2023, Additional history exists CKD HGB USE SMARTSET 33748 07/31/202407/31, 07/31/2023, 06/20/2023, Additional history exists COLONOSCOPY-EVERY [...] this encounter Medical Devices Implanted Type Area Ground Systems Engineer Device Identifier Shelf Expiration Date Model / Serial / Lot Cath Roselia Single Lumen - [id number] Implanted:Qty : 1 on 03/12/2008 at OR [facility] Left: Chest [employer] *DO NOT USE* 07/25/2012 21-4053-24 / / [id number] Valve Tarsha Aortic [id number] - [id number] Implanted:Qty : 1 on 11/01/2010 at OR [facility] N/A: Heart [employer] D[employer]EL 05/20/2012 2800TFX-25 / / [id number] Mesh Soft [id number] - [id number] Implanted:Qty : 1 on 10/10/2019 by Gigi Hendrickson MD at [facility] N/A: Abdomen CR BARD : DAVOL [id number] 05/21/2024 [id number] / / [id number] Lens 22.5 Sn60wf - [id number] - [id number] Implanted:Qty : 1 on 09/15/2020 by Renaldo Cook, Cece Acosta MD at [facility] Right: Eye IVA : SURGICAL [id number] 05/13/2025 SN60 WF.225 / [id number] / [id number] documented as of this encounter Visit Diagnoses Diagnosis Candidal intertrigo Candidiasis of skin and nails Heart failure, systolic, due to idiopathic cardiomyopathy (HCC) Unspecified systolic heart failure S/P AORTIC VALVE REPLACEMENT - #25 pericardial Mc valve Heart valve replaced by other means HTN, goal below 140/80 Unspecified essential hypertension Dyslipidemia, goal LDL below 70 Other and unspecified hyperlipidemia Muscle tension headache Tension headache documented in this encounter Advance Directives Latest [...] the patient have Health Care Power of Multi Mission Helicopter Aircrewman? No Full Code 10/10/2019 8:40 AM 10/10/2019 [...] patient or by statute hierarchy) Care Teams Medical Apparatus Model Maker Relationship Specialty Start Date End Date Deon Rausch MD [address] [place] [address] PCP - General Family Medicine 02/12/20 documented as of this encounter
--- OUTSIDE RECORDS SUMMARY | 2023-10-27 12:15 | External Medical Summary | Summary of Care ---
Author Name Unknown Organization [facility] Address [address] [place] [address] Phone [phone] Care Team Providers Care Wax Bleacher Name Role Phone Deon Rausch MD Primary Care Provider [phone] Reason for Visit * Reason Onset Date Comments Medication Refill 08/30/2023 Encounter Details Date Type Department Care Team (Late st Contact Info) Description 08/30/2023 Refill Family Practice [facility] [address] [facility] [place] [address] Deon Rausch MD [address] [facility] [place] [address] Allergies Active Allergy Reactions [...] hypoglycemia E11.9 100 Tab 3 1 Active WenwoToJCD Verio w/Device Kit Use up to 4 times a day E11.9 1 Kit 0 2 Active WenwoTouch Delica Lancets 33G TEST 4 TIMES DAILY [...] use of insulin ([facility]) Injected under the skin BEFORE MEALS, 3 [...] by mouth as needed. 0 Active Nystatin 261113 UNIT/GM External Powder (Nystop)Indications:C andidal intertrigo APPLY [...] to face 420 g 0 3 Active Aquaphor External Ointment Apply topically [...] 09/28/2020 Coronary artery disease invo lving [place] coronary artery of [place] heart without angina pectoris 12/16/2019 Last Assessment [...] 12/21/2016 Diabetes mellitus 01/05/2014 12/21/2016 LEYVA RESEARCH OTHER*[id number] 01/05/2014 12/21/2016 Axillary pain 11/03/2013 12/21/2016 Obesity, [...] cath 09/201008/26/2011 12/21/2016 FOLLOWING SURGERY, UNSPECIFI ED ([facility] BSO 08/25/2011) 08/26/2011 12/21/2016 ADVANCE [...] Record [facility] V710 Clinical Trial*[id number] 12/22/2010 04/14/2011 S/P aortic valve replacement 12/01/2010 08/26/2011 S/P AORTIC VALVE REPLACEMENT - #25 pericardial Mc valve 11/01/2010 06/28/2018 Overview: Aortic valve replacement with #25 pericardial Mc valve, model 2800TFX, serial number [id number] (Dr. Walker) [facility] V710 Clinical Trial*[id number] 10/18/2010 11/21/2010 Body mass index (BMI) of [...] 06/07/2018,01/08/20 18,12/05/2017,06/15,10/27/2013,09/12/2013 Pneumococcal Conjugate Vacci ne, 20-valent ([id number]) 06/22/2023 Pneumococcal Polysaccharide PPV23 (Pneumovax) 01/02/2008 SEASONAL [...] Telephone Encounter - Deon Rausch MD - 08/30/2023 8:31 PM ESTSigned Prescriptions: Disp Refills Aquaphor External Ointment 420 g 0 Sig: Apply topically to affected area as needed for Dry Skin. Apply to face Authorizing Provider: DEON RAUSCH * Telephone Encounter - Laya Mendez [facility] - 08/30/2023 3:54 PM ESTPending Prescriptions: Disp Refills Aquaphor External Ointment 420 g 0 Sig: Apply topically to affected area as needed for Dry Skin. Apply to face * Telephone Encounter - Laya Mendez RP - 08/30/2023 3:54 PM EST [facility] to approve refills for the pended medication(s) per refillprotocol. Please approve if appropriate. Pending Prescriptions: Disp Refills Aquaphor External Ointment 420 g 0 Sig: Apply topically to affected area as needed for Dry Skin. Apply to face 07/31/2023 (in office), Visit date not found (telemedicine) 02/04/2024 If no future appointments scheduled, and last appointment is greater than a year ago, please schedule patient for a follow-up appointment Last date the medication was ordered: 06/14/2021 Pharmacy: [facility] [id number] [place] [address] Is this request for a controlled [...] 4:00 PM EST Home Visit [facility] [place], [facility] [address] [address] Jaycee Sorto RN [address] [place] [address] 09/11/2023 1:40 PM EST Office Visit Pharmacy, [facility] [address] [facility] [place] [place] [address] Pharmacist1, [facility] [address] [place] [address] 10/15/2023 11:00 AM EST Office Visit Cardiology, [facility] [address] [facility] [place] [address] Feli Teague PA-C [address] [place] [address] 02/04/2024 10:20 AM EDT Office Visit Family Practice [facility] [address] [place] [address] Deon Rausch MD [address] [facility] [place] [address] Scheduled Procedures Name Priority Associated Diagnoses Date/Ti [...] Additional history exists CKD PHOS USE SMARTSET 34315 06/18/202405/26, 06/16/2023, 06/15/2023, Additional history exists CKD HGB USE SMARTSET 66844 07/31/202407/31, 07/31/2023, 06/29/2023, Additional history exists COLONOSCOPY-EVERY [...] this encounter Medical Devices Implanted Type Area Complaint Clerk Device Identifier Shelf Expiration Date Model / Serial / Lot Cath Roselia Single Lumen - [id number] Implanted:Qty : 1 on 03/12/2008 at OR [facility] Left: Chest [facility] *DO NOT USE* 07/25/2012 21-4053-24 / / [id number] Valve Tarsha Aortic [id number] - [id number] Implanted:Qty : 1 on 11/01/2010 at OR [facility] N/A: Heart [employer] 05/20/2012 2800TFX-25 / / [id number] Mesh Soft [id number] - [id number] Implanted:Qty : 1 on 10/10/2019 by Gigi Hendrickson MD [place] [facility] N/A: Abdomen CR BARD : DAVOL [id number] 05/21/2024 [id number] / / [id number] Lens 22.5 Sn60wf - [id number] - [id number] Implanted:Qty : 1 on 09/15/2020 by Cece Roland MD at [facility] Right: Eye IVA : SURGICAL [id number] 05/13/2025 SN60 WF.225 / [id number] / [id number] documented as of this encounter Advance [...] the patient have Health Care Power of Aws Developer? No Full Code 10/10/2019 8:40 AM 10/10/2019 5:53 PM This order reflects the patients wishes and were consensually agreed upon. Full Code 11/06/2017 4:55 PM 11/07/2017 7:14 PM This order reflects the patients wishes and were consensually agreed upon. Healthcare Agents on File Name Relationship Healthcare Agent [facility] p Communication Gigi Rose Adult Child Health Care Repr esentative (appointed verbally by patient or by statute hierarchy) Care Teams Wax Bleacher Relationship Specialty Start Date End Date Deon Rausch MD [address] [place] [address] PCP - General Family Medicine 02/12/20 documented as of this encounter
--- OUTSIDE RECORDS SUMMARY | 2023-10-27 12:16 | External Medical Summary | Summary of Care ---
Author Name Unknown Organization [facility] Address [address] [place] [address] Phone [phone] Care Team Providers Care Geosciences Associate Professor Name Role Phone Gregory Rausch MD Primary Care Provider [phone] Reason for Visit * Reason Comments Medication Discussion Encounter Details Date Type Department Care Team (Late st Contact Info) Description 08/03/2023 9:30 AM [facility] Pharmacy Pharmacy Call Center [phone] [place] [address] , [facility] [phone] [place] [address] Encounter for medication review* Allergies Active Allergy Reactions Criticality Noted Date Comments Adhesive Tape 07/02/2017 Can tolerate band-aids Glycerin Other (Please comment) 03/12/2008 Topical agents with glycein-burning & itching Lactose 12/09/2014 Dairy - gas Lisinopril Cough 01/21/2010 Monosodium Glutamate Edema Other 03/12/2008 Hands and feet Penicillins Rash 11/14/2007 documented as of this encounter (statuses as of 08/06/2023) Medications Medication Sig Dispensed Refills Start Date [...] hypoglycemia E11.9 100 Tab 3 07/06/2021 Active Epirus BiopharmaceuticalsTouch Verio w/Device Kit Use up to 4 [...] ([facility]) Use as directed. Use 1 transmitter every [...] 7.0% ([facility]),Type 2 diabetes mellitus with diabetic mononeuropathy, with long-term current use of insulin ([facility]),Type 2 diabetes mellitus with both eyes affected [...] MEDICATIONS 90 Tablet 2 05/05/2023 Active Nystatin 117782 UNIT/GM External Powder (Nystop)Indications:C andidal intertrigo Apply [...] long-term current use of insulin ([facility]) Injected under the skin BEFORE MEALS, 3 [...] Take by mouth as needed. 0 Active Metoprolol Tartrate 25 MG Oral Tablet (Lopressor) Take 1 Tablet by mouth in the morning and 1 Tablet before bedtime. 60 Tablet 0 06/21/2023 08/03/20 23 Torsemide 10 MG Oral Tablet (Demadex) Take 1 Tablet by mouth in the morning. 30 Tablet 0 06/22/2023 08/03/20 23 documented as of this encounter (statuses as of 08/06/2023) Active Problems Problem Noted Date Diagnosed Date [...] eye 09/28/2020 Coronary artery disease invo lving [place] coronary artery of [place] heart without angina pectoris 12/16/2019 Last Assessment [...] as of this encounter (statuses as of 08/06/2023) Resolved Problems Problem Noted Date Diagnosed Date [...] 12/21/2016 Diabetes mellitus 01/05/2014 12/21/2016 LEYVA RESEARCH OTHER*[id number] 01/05/2014 12/21/2016 Axillary pain 11/03/2013 12/21/2016 Obesity, [...] cath 09/201008/26/2011 12/21/2016 FOLLOWING SURGERY, UNSPECIFI ED ([facility] 08/25/2011) 08/26/2011 12/21/2016 ADVANCE [...] [facility] V710 Clinical Trial*[id number] 12/22/2010 04/14/2011 S/P aortic valve replacement 12/01/2010 08/26/2011 S/P AORTIC VALVE REPLACEMENT - #25 pericardial Hernandez valve 11/01/2010 06/28/2018 Overview: Aortic valve replacement with #25 pericardial Hernandez valve, model 2800TFX, serial number [id number] (Dr. Walker) [facility] V710 Clinical Trial*[id number] 10/18/2010 11/21/2010 Body mass index (BMI) of [...] as of this encounter (statuses as of 08/06/2023) Immunizations Name Administration Dates Next Due COVID-19 mRNA, LNP-s, No Pre serve, 2-Dose Series (Moderna) 10/25/2021,02/16/2021,01/18/2021 HEP A - Hepatitis A (Adult > 18 yrs) 06/07/2018, 12/05/2017 Hepatitis B, 20+ yrs 06/07/2018,01/08/20 18,12/05/2017,06/15,10/27/2013,09/12/2013 Pneumococcal Conjugate Vacci ne, 20-valent (Yifvles40) 06/22/2023 Pneumococcal Polysaccharide PPV23 (Pneumovax) 01/02/2008 SEASONAL [...] as of this encounter Progress Notes * Cindi Jaime, [facility] - 08/06/2023 12:24 PM EST Images from the original note were not included. PHARMACY MTM PROGRESS NOTE [facility] ([facility]) [address] [place] [address] Service Delivery Delivery Method: Phone Outcome: CMR Completed Health Profile Current Conditions: Allergies, Bladder Control, Blood Clot Prevention, Cardiovascular Disease, Diabetes, Fluid Rentention, General Health, High Blood Pressure, High Cholesterol, and Sleep Disorder Drug allergies & side effects: Review of patient's allergies indicates: Allergen Reactions Adhesive Tape Can tolerate band-aids Glycerin Other (Please comment) Topical agents with glycein-burning & itching Lactose Dairy - gas Lisinopril Cough Monosodium Glutamate Edema Other Hands and feet Pcn [Penicillins] Rash Med List Home Medications Provider Ammonium Lactate 12 % External Lotion (Lac-Hydrin) Gregory Rausch MD Apply to both feet once daily. Associated Diagnoses: -- Aquaphor External Ointment Gregory Rausch MD Apply topically to affected area as needed for Dry Skin. Apply to face Associated Diagnoses: -- aspirin enteric coated 81 MG TBEC Ramsey Turcios PA-C Take 1 Tab by mouth daily. Associated Diagnoses: Aortic valve disorder Notes: Discharge Order: Atorvastatin Calcium 40 MG Oral Tablet (Lipitor) Gregory Rausch MD TAKE 1 TABLET BY MOUTH DAILY. TO PREVENT HEART ATTACK/STROKE, PROTECT KIDNEY, AND CHOLESTEROL Associated Diagnoses: Heart failure, systolic, due to idiopathic cardiomyopathy (HCC), S/P aortic valve replacement, HTN, goal below 140/80, Dyslipidemia, goal LDL below 70 AZO Cranberry 250-30 MG Oral Tablet Patient, History Per Associated Diagnoses: -- BD Glucose 5 GM Oral Tablet Chewable (Glucose) Corwin Silva, DO 3 every 15 minutes until glucose is > 100 mg/dL for hypoglycemia E11.9 Associated Diagnoses: DM type 2, not at goal (HCC) BD Pen Needle Short U/F 31G X 8 MM Cinthia Mcgowan PA-C Use with insulin 4 times daily Associated Diagnoses: Type 2 diabetes mellitus with hemoglobin A1c goal of less than 7.0% ([facility]), Type 2 diabetes mellitus with stage 3a chronic kidney disease, with long-term current use of insulin (HCC) Clopidogrel Bisulfate 75 MG Oral Tablet (pLAVix) Gregory Rausch MD TAKE 1 TABLET (75 MG) BY MOUTH IN THE MORNING Associated Diagnoses: -- Dexcom G6 Sensor Gregory Rausch MD Use as directed. Use 1 sensor every 10 days E 11.9 Associated Diagnoses: Type 2 diabetes mellitus with hemoglobin A1c goal of less than 7.0% (HCC) Dexcom G6 Transmitter Gregory Rausch MD Use as directed. Use 1 transmitter every 90 days E 11.9 Associated Diagnoses: Type 2 diabetes mellitus with hemoglobin A1c goal of less than 7.0% (HCC) Fluticasone Propionate 50 MCG/ACT Nasal Suspension (Flonase) Victoria Garcia MD Administer 2 Sprays into each nostril in the morning. Associated Diagnoses: Dizziness Levothyroxine Sodium 75 MCG Oral Tablet (Levoxyl) Gregory Rausch MD TAKE 1 TAB BY MOUTH DAILY FIRST THING IN AM, AT LEAST 30 MIN PRIOR TO BREAKFAST OR OTHER MEDICATIONS Associated Diagnoses: Hypothyroidism Magnesium Oxide 400 (240 Mg) MG Oral Tablet (Mag-Ox) Roberto Carlos Muniz, DO One tablet by mouth daily in the morning Associated Diagnoses: -- Meclizine HCl 25 MG Oral Tablet (Antivert) Gregory Rausch MD TAKE 2 TABLETS BY MOUTH TWICE A DAY Patient not taking: Reported on 08/03/2023 Associated Diagnoses: Muscle tension headache Melatonin 10 MG Oral Capsule Patient, History Per Associated Diagnoses: -- metFORMIN HCl 850 MG Oral Tablet (Glucophage) Gregory Rausch MD TAKE 1 TABLET BY MOUTH TWICE A DAY WITH BREAKFAST AND DINNER Patient not taking: Reported on 08/03/2023 Associated Diagnoses: -- metOLazone 2.5 MG Oral Tablet (Zaroxolyn) Feli Teague PA-C One tablet one morning twice per week (Sunday and Sunday), 30 minutes prior to torsemide dose Patient not taking: Reported on 08/03/2023 Associated Diagnoses: Acute on chronic heart failure with preserved ejection fraction (HFpEF) (HCC) Metoprolol Tartrate 25 MG Oral Tablet (Lopressor) () Nancy Platt MD Take 1 Tablet by mouth in the morning and 1 Tablet before bedtime. Associated Diagnoses: -- Multiple Vitamins-Minerals ([employer] SPECTRAVITE ADVANCED) TABS Patient, History Per Associated Diagnoses: -- NovoLOG FlexPen 100 UNIT/ML Subcutaneous Solution Pen-injector (insulin aspart) Gregory Rausch MD Injected under the skin BEFORE MEALS, 3 times per day: 2 units per 50 when glucose is over 200 units. TDD: 50. ICD10: E11.9. Associated Diagnoses: -- NovoLOG FlexPen 100 UNIT/ML Subcutaneous Solution Pen-injector (insulin aspart) Cinthia Mcgowan PA-C Injected under the skin BEFORE MEALS, 3 times per day: 2 units per 50 when glucose is over 200 units. TDD: 50. ICD10: E11.9. Associated Diagnoses: Type 2 diabetes mellitus with hemoglobin A1c goal of less than 7.0% ([facility]), Type 2 diabetes mellitus with stage 3a chronic kidney disease, with long-term current use of insulin ([facility]) Nystatin 180232 UNIT/GM External Powder (Nystop) Gregory Rausch MD Apply topically to affected area 3 times a day. Apply to affected areas Associated Diagnoses: Candidal intertrigo Omnipod 5 G6 Intro (Gen 5) Kit Gregory Rausch MD Use as directed. Use to delivery insulin via insulin pump Associated Diagnoses: -- Omnipod 5 G6 Pod (Gen 5) Gregory Rausch MD Use as directed. Use 1 pod every 3 days Associated Diagnoses: -- OneTouch Delica Lancets 33G Nataly Cobb CRNP TEST 4 TIMES DAILY DIRECTED, E11.9 Associated Diagnoses: -- OneTouch Verio In Vitro Strip (Glucose Blood) Jose Neumann PA-C Use up to 4 times a day E11.9 Associated Diagnoses: -- OneTouch Verio w/Device Kit Nataly Cobb CRNP Use up to 4 times a day E11.9 Associated Diagnoses: -- Ozempic (2 MG/DOSE) 8 MG/3ML Subcutaneous Solution Pen-injector (Semaglutide (2 MG/DOSE)) Gregory Rausch MD Inject 0.75 mL under the skin once a week. Associated Diagnoses: Type 2 diabetes mellitus with hemoglobin A1c goal of less than 7.0% ([facility]), Type 2 diabetes mellitus with diabetic mononeuropathy, with long-term current use of insulin ([facility]), Type 2 diabetes mellitus with both eyes affected by mild nonproliferative retinopathy and macular edema, with long-term current use of insulin ([facility]), Type 2 diabetes mellitus with stage 3a chronic kidney disease, with long-term current use of insulin ([facility]) Notes: Mondays Potassium Chloride Shannon ER 10 MEQ Oral Tablet Extended Release Jose Neumann PA-C Take 1 Tablet by mouth in the morning and 1 Tablet before bedtime. Associated Diagnoses: Acute on chronic heart failure with preserved ejection fraction (HFpEF) ([facility]) Torsemide 10 MG Oral Tablet (Demadex) () Nancy Platt MD Take 1 Tablet by mouth in the morning. Associated Diagnoses: -- Tresiba FlexTouch 200 UNIT/ML Subcutaneous Solution Pen-injector (Insulin Degludec) Sharona Mcgowan PA-C Inject 30 Units under the skin at bedtime. Associated Diagnoses: Type 2 diabetes mellitus with hemoglobin A1c goal of less than 7.0% ([facility]), Type 2 diabetes mellitus with stage 3a chronic kidney disease, with long-term current use of insulin ([facility]) Venelex External Ointment Patient, History Per Associated Diagnoses: -- Ongoing Comment Jovita London CMA 06/21/2022 1:59 PM TIPs None Action Plan 1. What type of item is this? Non-medication related Describe the item for the patient takeaway: Checking your blood sugar Describe what the patient should do (for the patient takeaway): It is also important to monitor your blood sugar regularly. Make sure to record your readings in a log and take them with you to your appointments. Providing these readings to your healthcare providers can help them better control yourblood sugar. Takeaway Service Information Date CMR was completed: 08/03/2023 Who was the recipient of the CMR service: Patient Was the patient in a mcc care (LTC) facility when the CMR was completed? No Pharmacist's availability for questions: Sunday-Sunday 8:00am-4:30pm Takeaway Information Will the Patient Takeaway be sent to the Patient or someone else? Patient Language Template for the Patient Takeaway: Swedish Additional notes for the Patient Takeaway (optional): N/A I attest that I have reviewed and updated the patient's conditions, allergies, and medications to the best of my ability. Patient Access: Is patient utilizing [facility]? No; declined Is patient utilizing [email or web address]? Yes Additional Call Notes 45 min CMR Message sent to MTM to help with understanding of Novolog sliding scale Message sent to PCP regarding metolazone d/c as pt and daughter very concerned, and also with Azo use Cindi Jaime RPh Clinical Pharmacist [facility] ([facility]) 08/06/2023, 12:24 PM * Laya Reza, PHARM Student - 08/03/2023 10:40 AM EST Images from the original note were not included. PHARMACY MTM PROGRESS NOTE [facility] [id number] [facility] [place] [address] Unless the attending has added an attestation supporting use of this note to document a billable service, the signature of the Licensed Professional on this note only acknowledges the presence of thestudent's note within the patient record and the Licensed Professional's note should be referred tofor clinical information and recommendations. Health Profile Current Conditions: Drug allergies & side effects: Review of patient's allergies indicates: Allergen Reactions Adhesive Tape Can tolerate band-aids Glycerin Other (Please comment) Topical agents with glycein-burning & itching Lactose Dairy - gas Lisinopril Cough Monosodium Glutamate Edema Other Hands and feet Pcn [Penicillins] Rash Med List Home Medications Provider Ammonium Lactate 12 % External Lotion (Lac-Hydrin) Gregory Rausch MD Apply to both feet once daily. Associated Diagnoses: feet Aquaphor External Ointment Gregory Rausch MD Apply topically to affected area as needed for Dry Skin. Apply to face Associated Diagnoses: dry skin aspirin enteric coated 81 MG TBEC Ramsey Turcios PA-C Take 1 Tab by mouth daily. Associated Diagnoses: Aortic valve disorder Notes: blood thinner Atorvastatin Calcium 40 MG Oral Tablet (Lipitor) Gregory Rausch MD TAKE 1 TABLET BY MOUTH DAILY. TO PREVENT HEART ATTACK/STROKE, PROTECT KIDNEY, AND CHOLESTEROL Associated Diagnoses: high cholesterol AZO Cranberry 250-30 MG Oral Tablet Patient, History Per Associated Diagnoses: UTI prevention BD Glucose 5 GM Oral Tablet Chewable (Glucose) Corwin Silva, DO 3 every 15 minutes until glucose is > 100 mg/dL for hypoglycemia E11.9 Associated Diagnoses: type 2 diabetes BD Pen Needle Short U/F 31G X 8 MM Cinthia Mcgowan PA-C Use with insulin 4 times daily Associated Diagnoses: Type 2 diabetes mellitus Clopidogrel Bisulfate 75 MG Oral Tablet (pLAVix) Gregory Rausch MD TAKE 1 TABLET (75 MG) BY MOUTH IN THE MORNING Associated Diagnoses: blood thinner Dexcom G6 Sensor Gregory Rausch MD Use as directed. Use 1 sensor every 10 days E 11.9 Associated Diagnoses: Type 2 diabetes mellitus Dexcom G6 Transmitter Gregory Rausch MD Use as directed. Use 1 transmitter every 90 days E 11.9 Associated Diagnoses: Type 2 diabetes mellitus Fluticasone Propionate 50 MCG/ACT Nasal Suspension (Flonase) Victoria Garcia MD Administer 2 Sprays into each nostril in the morning. Associated Diagnoses: allergies Gaviscon Take 1 tablet as needed for severe heartburn Associated Diagnoses: heartburn Levothyroxine Sodium 75 MCG Oral Tablet (Levoxyl) Gregory Rausch MD TAKE 1 TAB BY MOUTH DAILY FIRST THING IN AM, AT LEAST 30 MIN PRIOR TO BREAKFAST OR OTHER MEDICATIONS Associated Diagnoses: thyroid Magnesium Oxide 400 (240 Mg) MG Oral Tablet (Mag-Ox) Roberto Carlos Muniz, DO One tablet by mouth daily in the morning Associated Diagnoses: supplement Meclizine HCl 25 MG Oral Tablet (Antivert) Gregory Rausch MD TAKE 1 TABLET BY MOUTH TWICE A DAY Associated Diagnoses: dizziness Melatonin 10 MG Oral Capsule Patient, History Per Take 1 capsule at bedtime Associated Diagnoses: sleep metFORMIN HCl 1000 MG Oral Tablet (Glucophage) Gregory Rausch MD TAKE 1 TABLET BY MOUTH TWICE A DAY WITH BREAKFAST AND DINNER Associated Diagnoses: type 2 diabetes Metoprolol Tartrate 25 MG Oral Tablet (Lopressor) Nancy Platt MD Take 1 Tablet by mouth in the morning and 1 Tablet before bedtime. Associated Diagnoses: high blood pressure Multiple Vitamins-Minerals ([employer] SPECTRAVITE ADVANCED) TABS Patient, History Per Take 1 tablet every day Associated Diagnoses: supplement NovoLOG FlexPen 100 UNIT/ML Subcutaneous Solution Pen-injector (insulin aspart) Gregory Rausch MD Injected under the skin BEFORE MEALS, 3 times per day: 2 units per 50 when glucose is over 200 units. TDD: 50. ICD10: E11.9. Associated Diagnoses: type 2 diabetes Nystatin 838953 UNIT/GM External Powder (Nystop) Gregory Rausch MD Apply topically to affected area 1 time a day. Apply to affected areas Associated Diagnoses: fungal infection Omnipod 5 G6 Intro (Gen 5) Kit Gregory Rausch MD Use as directed. Use to delivery insulin via insulin pump Associated Diagnoses: type 2 diabetes Omnipod 5 G6 Pod (Gen 5) Gregory Rausch MD Use as directed. Use 1 pod every 3 days Associated Diagnoses: type 2 diabetes OneTouch Delica Lancets 33G Nataly Cobb CRNP TEST 4 TIMES DAILY DIRECTED, E11.9 Associated Diagnoses: type 2 diabetes OneTouch Verio In Vitro Strip (Glucose Blood) Jose Neumann PA-C Use up to 4 times a day E11.9 Associated Diagnoses: type 2 diabetes OneTouch Verio w/Device Kit Nataly Cobb CRNP Use up to 4 times a day E11.9 Associated Diagnoses: type 2 diabetes Ozempic (2 MG/DOSE) 8 MG/3ML Subcutaneous Solution Pen-injector (Semaglutide (2 MG/DOSE)) Gregory Rausch MD Inject 0.75 mL under the skin once a week. Associated Diagnoses: Type 2 diabetes mellitus Notes: Mondays Potassium Chloride Shannon ER 10 MEQ Oral Tablet Extended Release Jose Neumann PA-C Take 1 Tablet by mouth in the morning and 1 Tablet before bedtime. Associated Diagnoses: heart failure Torsemide 10 MG Oral Tablet (Demadex) Nancy Platt MD Take 1 Tablet by mouth in the morning. Associated Diagnoses: water pill Tresiba FlexTouch 200 UNIT/ML Subcutaneous Solution Pen-injector (Insulin Degludec) Sharona Mcgowan PA-C Inject 30 Units under the skin at bedtime. Associated Diagnoses: Type 2 diabetes mellitus Ongoing Comment Jovita London CMA 06/21/2022 1:59 PM Additional Call Notes Daughter inquired about Liv52 supplement. Advised against taking because of safety reasons. Daughter also inquired about Neuriva and patient will start taking that supplement. Azo- Asking provider about reducing dose as blood sugars improve Novolog- asking provider to give patient dosing chart to follow to reduce confusion with dosing. Metolazone- stopped in SNF, talked to patient about signs of edema to contact Dr kiko Reza, PHARM Student Clinical Pharmacist [facility] ([facility]) 08/03/2023, 10:40 AM documented in this encounter Plan of Treatment Upcoming Encounters Date Type Department Care Team (Late st Contact Info) Description 08/10/2023 1:00 PM EST Telemedicine Pharmacy, [facility] [address] [facility] [place] [address] Pharmacist1, [facility] [address] [facility] [place] [address] 08/30/2023 10:00 AM EST Home Visit [facility], [facility] [address] [place] [address] Jaycee Sorto RN [address] [place] [address] 10/15/2023 11:00 AM EST Office Visit Cardiology, [facility] [address] [place] [address] Feli Teague, TATEC [address] [place] [address] 02/04/2024 10:20 AM EDT Office Visit Family Practice [facility] [address] [place] [address] Gregory Rausch MD [address] [place] [address] Scheduled Procedures Name Priority Associated Diagnoses Date/Ti [...] Additional history exists CKD PHOS USE SMARTSET 30569 06/18/202405/26, 06/16/2023, 06/15/2023, Additional history exists CKD HGB USE SMARTSET 83075 07/31/202407/31, 07/31/2023, 06/20/2023, Additional history exists COLONOSCOPY-EVERY [...] this encounter Medical Devices Implanted Type Area General Accounting Clerk Device Identifier Shelf Expiration Date Model / Serial / Lot Cath Roselia Single Lumen - [id number] Implanted:Qty : 1 on 03/12/2008 at OR [facility] Left: Chest [employer] *DO NOT USE* 07/25/2012 [id number] / / [id number] Valve Tarsha Aortic [id number] - [id number] Implanted:Qty : 1 on 11/01/2010 at OR [facility] N/A: Heart [employer]ach [employer]CISongdrop DANIEL 05/20/2012 [id number] / / [id number] Mesh Soft [id number] - [id number] Implanted:Qty : 1 on 10/10/2019 by Gigi Hendrickson MD at OR [facility] N/A: Abdomen CR BARD : DAVOL [id number] 05/21/2024 [id number] / / [id number] Lens 22.5 Sn60wf - [id number] - [id number] Implanted:Qty : 1 on 09/15/2020 by Cece Roland MD at OR [facility] Right: Eye IVA : SURGICAL [id number] 05/13/2025 SN60 WF.225 / [id number] / [id number] documented as of this encounter Visit Diagnoses Diagnosis Encounter for medication review- Primary Encounter for long-term (current) use of other medications documented in this encounter Advance Directives Latest [...] the patient have Health Care Power of District Medical Examiner? No Full Code 10/10/2019 8:40 AM 10/10/2019 [...] patient or by statute hierarchy) Care Teams Geosciences Associate Professor Relationship Specialty Start Date End Date Gregory Rausch MD [address] [place] [address] PCP - General Family Medicine 02/12/20 documented as of this encounter
--- OUTSIDE RECORDS SUMMARY | 2023-10-27 12:16 | External Medical Summary | Summary of Care ---
Author Name Unknown Organization [facility] Address [address] [place] [address] Phone [phone] Care Team Providers Care Aircraft Loadmaster Superintendent Name Role Phone Gregory Rausch MD Primary Care Provider [phone] Encounter Details Date Type Department Care Team (Late st Contact Info) Description 08/03/2023 Telephone Family Practice [facility] [address] [facility] [place] [address] Gregory Rausch MD [address] [facility] [place] [address] Allergies Active Allergy Reactions Criticality Noted [...] hypoglycemia E11.9 100 Tab 3 07/06/2021 Active [employer] Verio w/Device Kit Use up to 4 times a day E11.9 1 Kit 0 02/10/2022 Active [employer] DiagnosticsTouch Delica Lancets 33G TEST 4 TIMES DAILY [...] hemoglobin A1c goal of less than 7.0% ([facility]) Use as directed. Use 1 [...] Heart failure, systolic, due to idiopathic cardiomyopathy ([facility]),S/P aortic valve replacement,HTN, goal below 140/80,Dyslipidemia, goal LDL below 70 TAKE 1 TABLET BY MOUTH DAILY. TO PREVENT HEART ATTACK/STROKE, PROTECT KIDNEY, AND CHOLESTEROL 90 Tablet 1 01/18/2023 Active Ozempic (2 MG/DOSE) 8 MG/3ML Subcutaneous Solution Pen-injector (Semaglutide (2 MG/DOSE))Indications: Type 2 diabetes mellitus with hemoglobin A1c goal of less than 7.0% ([facility]),Type 2 diabetes mellitus with diabetic mononeuropathy, with long-term current use of insulin ([facility]),Type 2 diabetes mellitus with both eyes affected by mild nonproliferative retinopathy and macular edema, with long-term current use of insulin ([facility]),Type 2 diabetes mellitus with stage 3a chronic kidney disease, with long-term current use of insulin ([facility]) Inject 0.75 mL under the skin once a week. 9 mL 3 02/22/2023 Active Fluticasone Propionate 50 MCG/ACT Nasal Suspension (Flonase)Indications: Dizziness Administer 2 Sprays into each nostril in the morning. 16 g 3 03/01/2023 Active metOLazone 2.5 MG Oral Tablet (Zaroxolyn)Indication s:Acute on chronic heart failure with preserved ejection fraction (HFpEF) ([facility]) One tablet one morning twice [...] MEDICATIONS 90 Tablet 2 05/05/2023 Active Nystatin 499204 UNIT/GM External Powder (Nystop)Indications:C andidal intertrigo Apply topically to affected area 3 times a day. Apply to affected areas 60 g 1 05/11/2023 Active OneTouch Verio In Vitro Strip (Glucose Blood) Use up to 4 times a day E11.9 100 Strip 11 07/26/2023 Active Potassium Chloride [facility] 10 MEQ Oral Tablet Extended ReleaseIndications:Ac [place] on chronic heart failure with preserved ejection [...] hemoglobin A1c goal of less than 7.0% ([facility]),Type 2 diabetes mellitus with stage 3a chronic kidney disease, with long-term current use of insulin ([facility]) Inject 30 Units under the skin at bedtime. 6 mL 2 07/31/2023 Active NovoLOG FlexPen 100 UNIT/ML Subcutaneous Solution Pen-injector (insulin aspart)Indications:Ty pe 2 diabetes mellitus with hemoglobin A1c goal of less than 7.0% ([facility]),Type 2 diabetes mellitus with stage 3a chronic kidney disease, with long-term current use of insulin ([facility]) Injected under the skin BEFORE MEALS, 3 times per day: 2 units per 50 when glucose is over 200 units. TDD: 50. ICD10: E11.9. 15 mL 2 07/31/2023 Active BD Pen Needle Short U/F 31G X 8 MMIndications:Type 2 diabetes mellitus with hemoglobin A1c goal of less than 7.0% ([facility]),Type 2 diabetes mellitus with stage 3a chronic kidney disease, with long-term current use of insulin ([facility]) Use with insulin 4 times daily 400 Each 3 07/31/2023 Active documented as of this encounter (statuses [...] eye 09/28/2020 Coronary artery disease invo lving [place] coronary artery of [place] heart without angina pectoris 12/16/2019 Last Assessment [...] 12/21/2016 Diabetes mellitus 01/05/2014 12/21/2016 LEYVA RESEARCH OTHER*[id number] 01/05/2014 12/21/2016 Axillary pain 11/03/2013 12/21/2016 Obesity, [...] cath 09/201008/26/2011 12/21/2016 FOLLOWING SURGERY, UNSPECIFI ED ([facility] BSO 08/25/2011) 08/26/2011 12/21/2016 ADVANCE DIRECTIVE INFORMATION 04/17/2011 12/21/2016 Overview: Yes, Patient instructed to provide copy of advance directive for provider to review and to be scanned into Electronic Medical Record ADVANCE DIRECTIVE INFORMATION 03/01/2011 12/21/2016 Overview: Yes, Patient instructed to provide copy of advance directive for provider to review and to be scanned into Electronic Medical Record [facility] V710 Clinical Trial*[id number] 12/22/2010 04/14/2011 S/P aortic valve replacement 12/01/2010 08/26/2011 S/P AORTIC VALVE REPLACEMENT - #25 pericardial Mc valve 11/01/2010 06/28/2018 Overview: Aortic valve replacement with #25 pericardial Mc valve, model 2800TFX, serial number [id number] (Dr. Walker) [facility] V710 Clinical Trial*[id number] 10/18/2010 11/21/2010 Body mass index (BMI) of [...] 06/07/2018,01/08/20 18,12/05/2017,06/15,10/27/2013,09/12/2013 Pneumococcal Conjugate Vacci ne, 20-valent ([id number]) 06/22/2023 Pneumococcal Polysaccharide PPV23 (Pneumovax) 01/02/2008 SEASONAL [...] encounter Miscellaneous Notes * Telephone Encounter - Shayna Bullard LPN - 08/06/2023 8:31 AM EST Patient returned call. Informed of message. Verbalized understanding. Pt has not taken potassium for at least a week, she does have it in the home. Pt denies palpitations or cramping of muscle. Pt will start taking her potassium today. * Telephone Encounter - Gayle Duncan LPN - 08/06/2023 8:14 AM EST Called pt, let message for a return call * Telephone Encounter - Gregory Rausch MD - 08/03/2023 11:26 AM EST Potassium low at 3.0. Call patient and make sure she is taking her potassium chloride tabs daily documented in this encounter Plan of Treatment Upcoming Encounters Date Type Department Care Team (Late st Contact Info) Description 08/10/2023 1:00 PM EST Telemedicine Pharmacy, [facility] [address] [facility] [place] [address] Pharmacist1, [facility] [address] [facility] [place] [address] 08/30/2023 10:00 AM EST Home Visit [facility] [address] [place] [address] Jaycee Sorto, RN [address] [place] [address] 10/15/2023 11:00 AM EST Office Visit Cardiology, [facility] [address] [place] [address] Feli Teague PA-C [address] [place] [address] 02/04/2024 10:20 AM EDT Office Visit Family [facility] [address] [place] [address] Gregory Rausch MD [address] [place] [address] Scheduled Procedures Name Priority Associated Diagnoses Date/Ti [...] Additional history exists CKD PHOS USE SMARTSET 41319 06/18/202405/26, 06/16/2023, 06/15/2023, Additional history exists CKD HGB USE SMARTSET 00441 07/31/202407/31, 07/31/2023, 06/20/2023, Additional history exists COLONOSCOPY-EVERY [...] this encounter Medical Devices Implanted Type Area Mental Health Aide Device Identifier Shelf Expiration Date Model / Serial / Lot Cath Orselia Single Lumen - [id number] Implanted:Qty : 1 on 03/12/2008 at OR [facility] Left: Chest [employer] *DO NOT USE* 07/25/2012 21-4053-24 / / [id number] Valve Tarsha Aortic [id number] - [id number] Implanted:Qty : 1 on 11/01/2010 at OR [facility] N/A: Heart [employer] DANIEL 05/20/2012 [id number]-25 / / [id number] Mesh Soft [id number] - [id number] Implanted:Qty : 1 on 10/10/2019 by Gigi Hendrickson MD at [place] [facility] N/A: Abdomen CR BARD : DAVOL [id number] 05/21/2024 [id number] / / [id number] Lens 22.5 Sn60wf - [id number] - [id number] Implanted:Qty : 1 on 09/15/2020 by Renaldo Cook, Cece Acosta MD at [facility] Right: Eye IVA : SURGICAL [id number] 05/13/2025 SN60 WF.225 / [id number] / [id number] documented as of this encounter Advance [...] the patient have Health Care Power of It Service Continuity Supervisor? No Full Code 10/10/2019 8:40 AM 10/10/2019 5:53 PM This order reflects the patients wishes and were consensually agreed upon. Full Code 11/06/2017 4:55 PM 11/07/2017 7:14 PM This order reflects the patients wishes and were consensually agreed upon. Healthcare Agents on File Name Relationship Healthcare Agent [facility] Communication Gigi Rose Adult Child Health Care Repr esentative (appointed verbally by patient or by statute hierarchy) Care Teams Aircraft Loadmaster Superintendent Relationship Specialty Start Date End Date Gregory Rausch MD [address] [place] [address] PCP - General Family Medicine 02/12/20 documented as of this encounter
--- OUTSIDE RECORDS SUMMARY | 2023-10-27 12:16 | External Medical Summary | Summary of Care ---
Author Name Unknown Organization [facility] Address [address] [place] [address] Phone [phone] Care Team Providers Care Systems Support Engineer Name Role Phone Gregory Rausch MD Primary Care Provider [phone] Encounter Details Date Type Department Care Team (Late st Contact Info) Description 08/03/2023 Orders Only Family Practice [facility] [address] [facility] [place] [address] Gregory Rausch MD [address] [facility] [place] [address] Allergies Active Allergy Reactions Criticality Noted Date Comments Adhesive Tape 07/02/2017 Can tolerate band-aids Glycerin Other (Please comment) 03/12/2008 Topical agents with glycein-burning & itching Lactose 12/09/2014 Dairy - gas Lisinopril Cough 01/21/2010 Monosodium Glutamate Edema Other 03/12/2008 Hands and feet Penicillins Rash 11/14/2007 documented as of this encounter (statuses as of 08/03/2023) Medications Medication Sig Dispensed Refills Start Date [...] hypoglycemia E11.9 100 Tab 3 07/06/2021 Active Floop TechnologiesTouch Verio w/Device Kit Use up to 4 times a day E11.9 1 Kit 0 02/10/2022 Active [employer]oop TechnologiesTouch Delica Lancets 33G TEST 4 TIMES DAILY [...] Heart failure, systolic, due to idiopathic cardiomyopathy ([facility]),S/P aortic valve replacement,HTN, goal below 140/80,Dyslipidemia, goal LDL below 70 TAKE 1 TABLET BY MOUTH DAILY. TO PREVENT HEART ATTACK/STROKE, PROTECT KIDNEY, AND CHOLESTEROL 90 Tablet 1 01/18/2023 Active Ozempic (2 MG/DOSE) 8 MG/3ML Subcutaneous Solution Pen-injector (Semaglutide (2 MG/DOSE))Indications: Type 2 diabetes mellitus with hemoglobin A1c goal of less than 7.0% ([facility]),Type 2 diabetes mellitus with diabetic mononeuropathy, with long-term current use of insulin ([facility]),Type 2 diabetes mellitus with both eyes affected by mild nonproliferative retinopathy and macular edema, with long-term current use of insulin ([facility]),Type 2 diabetes mellitus with stage 3a chronic kidney disease, with long-term current use of insulin ([facility]) Inject 0.75 mL under the skin once a week. 9 mL 3 02/22/2023 Active Fluticasone Propionate 50 MCG/ACT Nasal Suspension (Flonase)Indications: Dizziness Administer 2 Sprays into each nostril in the morning. 16 g 3 03/01/2023 Active metOLazone 2.5 MG Oral Tablet (Zaroxolyn)Indication s:Acute on chronic heart failure with preserved ejection fraction (HFpEF) ([facility]) One tablet one morning [...] MEDICATIONS 90 Tablet 2 05/05/2023 Active Nystatin 686693 UNIT/GM External Powder (Nystop)Indications:C andidal intertrigo Apply topically to affected area 3 times a day. Apply to affected areas 60 g 1 05/11/2023 Active Metoprolol Tartrate 25 MG Oral Tablet (Lopressor) Take 1 Tablet by mouth in the morning and 1 Tablet before bedtime. 60 Tablet 0 06/21/2023 3 Active Torsemide 10 MG Oral Tablet (Demadex) Take 1 Tablet by mouth in the morning. 30 Tablet 0 06/22/2023 3 Active OneTouch Verio In Vitro Strip [...] hemoglobin A1c goal of less than 7.0% ([facility]),Type 2 diabetes mellitus with stage 3a chronic kidney disease, with long-term current use of insulin ([facility]) Inject 30 Units under the skin at bedtime. 6 mL 2 07/31/2023 Active NovoLOG FlexPen 100 UNIT/ML Subcutaneous Solution Pen-injector (insulin aspart)Indications:Ty pe 2 diabetes mellitus with hemoglobin A1c goal of less than 7.0% ([facility]),Type 2 diabetes mellitus with stage 3a chronic kidney disease, with long-term current use of insulin ([facility]) Injected under the skin BEFORE MEALS, 3 times per day: 2 units per 50 when glucose is over 200 units. TDD: 50. ICD10: E11.9. 15 mL 2 07/31/2023 Active BD Pen Needle Short U/F 31G X 8 MMIndications:Type 2 diabetes mellitus with hemoglobin A1c goal of less than 7.0% ([facility]),Type 2 diabetes mellitus with stage 3a chronic kidney disease, with long-term current use of insulin ([facility]) Use with insulin 4 times daily 400 Each 3 07/31/2023 Active documented as of this encounter (statuses as of 08/03/2023) Active Problems Problem Noted Date Diagnosed Date [...] eye 09/28/2020 Coronary artery disease invo lving [place] coronary artery of [place] heart without angina pectoris 12/16/2019 Last Assessment [...] as of this encounter (statuses as of 08/03/2023) Resolved Problems Problem Noted Date Diagnosed Date [...] 12/21/2016 Diabetes mellitus 01/05/2014 12/21/2016 LEYVA RESEARCH OTHER*[id number] 01/05/2014 12/21/2016 Axillary pain 11/03/2013 12/21/2016 Obesity, [...] cath 09/201008/26/2011 12/21/2016 FOLLOWING SURGERY, UNSPECIFI ED ([facility] BSO 08/25/2011) 08/26/2011 12/21/2016 ADVANCE DIRECTIVE INFORMATION 04/17/2011 12/21/2016 Overview: Yes, Patient instructed to provide copy of advance directive for provider to review and to be scanned into Electronic Medical Record ADVANCE DIRECTIVE INFORMATION 03/01/2011 12/21/2016 Overview: Yes, Patient instructed to provide copy of advance directive for provider to review and to be scanned into Electronic Medical Record [facility] V710 Clinical Trial*[id number] 12/22/2010 04/14/2011 S/P aortic valve replacement 12/01/2010 08/26/2011 S/P AORTIC VALVE REPLACEMENT - #25 pericardial [place] valve 11/01/2010 06/28/2018 Overview: Aortic valve replacement with #25 pericardial [place] valve, model 2800TFX, serial number [id number] (Dr. Walker) [facility] V710 Clinical Trial*[id number] 10/18/2010 11/21/2010 Body mass index (BMI) of [...] as of this encounter (statuses as of 08/03/2023) Immunizations Name Administration Dates Next Due COVID-19 mRNA, LNP-s, No Pre serve, 2-Dose Series (Moderna) 10/25/2021,02/16/2021,01/18/2021 HEP A - Hepatitis A (Adult > 18 yrs) 06/07/2018, 12/05/2017 Hepatitis B, 20+ yrs 06/07/2018,01/08/20 18,12/05/2017,06/15,10/27/2013,09/12/2013 Pneumococcal Conjugate Vacci ne, 20-valent ([id number]) 06/22/2023 Pneumococcal Polysaccharide PPV23 (Pneumovax) 01/02/2008 SEASONAL [...] or making decisions? (5 years old or older No 11/06/2017 documented as of this encounter Plan of Treatment Upcoming Encounters Date Type Department Care Team (Late st Contact Info) Description 08/10/2023 1:00 PM EST Telemedicine Pharmacy, [facility] [address] [facility] [place] [address] Pharmacist1, [facility] [address] [place] [address] 08/30/2023 10:00 AM EST Home Visit [facility] [address] [place] [address] Jaycee Sorto RN [address] [place] [address] 10/15/2023 11:00 AM EST Office Visit Cardiology, [facility] [address] [place] [address] Feli Teague PA-C [address] [place] [address] 02/04/2024 10:20 AM EDT Office Visit Family Practice [facility] [address] [place] [address] Gregory Rausch MD [address] [place] [address] Scheduled Procedures Name Priority Associated Diagnoses Date/Ti [...] Additional history exists CKD PHOS USE SMARTSET 56636 06/18/202405/26, 06/16/2023, 06/15/2023, Additional history exists CKD HGB USE SMARTSET 74878 07/31/202407/31, 07/31/2023, 06/20/2023, Additional history exists COLONOSCOPY-EVERY [...] this encounter Medical Devices Implanted Type Area Mixing Roll Operator Device Identifier Shelf Expiration Date Model / Serial / Lot Cath Roselia Single Lumen - [id number] Implanted:Qty : 1 on 03/12/2008 at OR [facility] Left: Chest [employer] *DO NOT USE* 07/25/2012 21-4053-24 / / [id number] Valve Tarsha Aortic [id number] - [id number] Implanted:Qty : 1 on 11/01/2010 at OR [facility] N/A: Heart [employer] DANIEL 05/20/2012 2800TFX-25 / / [id number] Mesh Soft [id number] - [id number] Implanted:Qty : 1 on 10/10/2019 by Gigi Hendrickson MD at OR [facility] N/A: Abdomen CR BARD : DAVOL [id number] 05/21/2024 [id number] / / [id number] Lens 22.5 Sn60wf - [id number] - [id number] Implanted:Qty : 1 on 09/15/2020 by Renaldo Cook, Cece Acosta MD at [facility] Right: Eye IVA : SURGICAL [id number] 05/13/2025 SN60 WF.225 / [id number] / [id number] documented as of this encounter Procedures Procedure Name Priority Date/Time Associated Diagnosis Comments CHEMISTRY-OUTSIDE Routine 08/02/2023 documented in this encounter Results * (ABNORMAL) CHEMISTRY-OUTSIDE (08/02/2023) Not all results display below - see scan for full detail OUTSIDE LAB (SEE SCANNED REPORT) Comment:SEE SCAN - BMP CREATININE-OUTSID E LAB 0.80 0.6 - 1.2 MG/DL OUTSIDE LAB (SEE SCANNED REPORT) EGFR-OUTSIDE LAB 77.9 ML/MIN OUT SIDE LAB (SEE SCANNED REPORT) POTASSIUM-OUTSIDE LAB 3.0(A) 3.5 - 5.1 MMOL/L OUTSIDE LAB (SEE SCANNED REPORT) GLUCOSE-OUTSIDE LAB 296(A) 70 - 99 MG/DL OUTSIDE LAB (SEE SCANNED REPORT) HOURS FASTING OUTSID E LAB (SEE SCANNED REPORT) TRIGLYCERIDES-OUT SIDE LAB OUTSIDE LAB (SEE SCANNED REPORT) CHOLESTEROL-OUTSI DE LAB OUTSIDE LAB (SEE SCANNED REPORT) HDL-OUTSIDE LAB OUTS JACE LAB (SEE SCANNED REPORT) CHOL/HDL RATIO-OUTSIDE LAB OUTSIDE LA B (SEE SCANNED REPORT) LDL (CALCULATED)-OUTS JACE LAB OUTSIDE LAB (SEE SCANNED REPORT) LDL (DIRECT MEASURE)-OUTSIDE LAB OUTSIDE LAB (SEE SCANNED REPORT) HEMOGLOBIN, [id number] LAB OUTSIDE LAB (SEE SCANNED REPORT) PHOSPHORUS-OUTSID E LAB OUTSIDE LAB (SEE SCANNED REPORT) PTH-OUTSIDE LAB OUTS JACE LAB (SEE SCANNED REPORT) MICROALBUMIN RATIO-OUTSIDE LAB OUTSIDE LA B (SEE SCANNED REPORT) PROTEIN, UA-OUTSIDE LAB OUTSIDE LAB (SEE SCANNED REPORT) HEMOGLOBIN-OUTSID E LAB OUTSIDE LAB (SEE SCANNED REPORT) 08/02/2023 Gregory Rausch MD LABORATORY OUTSIDE LAB (SEE SCANNED REPORT) documented in this encounter Advance Directives Latest [...] the patient have Health Care Power of Retort Operator? No Full Code 10/10/2019 8:40 AM [...] patient or by statute hierarchy) Care Teams Systems Support Engineer Relationship Specialty Start Date End Date Gregory Rausch MD [address] [place] [address] PCP - General Family Medicine 02/12/20 documented as of this encounter
[2023-10-27] MEDS: SODIUM CHLORIDE 0.9% 1,000 ML IV SCH ×2 (12:44→15:25)
[2023-10-27 12:54] LABS: Basophils # (auto) 0.02 K/uL (0.00-0.20); Basophils % (auto) 0.3 %; Eosinophils # (auto) 0.04 K/uL (0.00-0.50); Eosinophils % (auto) 0.5 %; Hematocrit (blood only) 33.3 % (37.0-47.0); Immature Granulocytes # (auto) 0.02 K/uL (0.01-0.20); Immature Granulocytes % (auto) 0.3 %; Lymphocytes # (auto) 2.61 K/uL (1.20-3.40); Mean Corpuscular Hemoglobin 25.8 pg (25.0-34.0); Mean Corpuscular Volume 71.6 fL (80.0-100.0); Mean Platelet Volume 10.9 fL (9.4-12.4); Monocytes # (auto) 0.71 K/uL (0.11-0.59); Neutrophils % (auto) 56.9 %; Platelet Count 154 K/uL (130-400); RDW Coefficient of Variation 15.6 % (11.5-14.5); RDW Standard Deviation 39.5 fL (36.4-46.3); Red Blood Count 4.65 M/uL (4.20-5.40)
[2023-10-27 13:07] LABS: iSTAT Blood Urea Nitrogen 23 mg/dl (7-18); iSTAT Carbon Dioxide > 40 mmol/L (24-31); iSTAT Chloride 66 mmol/L (101-112); iSTAT Creatinine 1.3 mg/dl (0.6-1.3); iSTAT Glucose 386 mg/dl (70-99); iSTAT Hematocrit 34 % (37-47); iSTAT Hemoglobin 11.6 g/dl (12.0-16.0); iSTAT Ionized Calcium 0.96 mmol/l (1.12-1.32); iSTAT Potassium 2.2 mmol/L (3.3-5.0); iSTAT Sodium 118 mmol/L (135-144)
[2023-10-27] MEDS: MECLIZINE HCL 25 MG TAB PO STA (13:16)
--- NOTE | 2023-10-27 13:16 | XRay Report ---
XR chest 1V portable HISTORY: 62 years-old Female weakness acute weakness COMPARISON: 06/06/2023 TECHNIQUE: AP view of the chest FINDINGS: Cardiac silhouette is enlarged. Median sternotomy with cardiac valvular prosthesis. No pneumothorax o r large pleural effusion. There is persistent blunting of the right lateral costophrenic angle. Mild chronic interstitial coarsening. Left breast implant. Degenerative changes of the shoulders and spine with rotator cuff calcific tendinosis. IMPRESSION: Cardiomegaly without acute process. ACT 112: Negative or not required by law. The above report was generated using voice recognition software. It may contain grammatical, syntax o r spelling errors. Electronically signed by: Rafa Leslie M.D. 10/27/2023 1:15 PM
[2023-10-27 13:19] LABS: Albumin Globulin Ratio 1.3 (0.9-2); BUN Creatinine Ratio 17.6 (10-20); Bilirubin,Total 1.1 mg/dl (0.2-1.0); Calcium 9.1 mg/dl (8.6-10.3); Creatinine Clr Calc Pharmacy 39.1 ml/min; Est GFR (African American) 52.6 ml/min; Est GFR (Non-African American) 45.4 ml/min; Magnesium 2.2 mg/dl (1.7-2.4); Potassium 2.3 mmol/L (3.5-5.1)
[2023-10-27 13:22] LABS: Troponin I High Sensitivity 20.5 pg/ml (0-14)
[2023-10-27 13:23] LABS: Prothrombin Time 11.2 Seconds (9.0-12.0)
[2023-10-27 13:34] LABS: Thyroid Stimulating Hormone 1.247 uIu/ml (0.300-4.500)
[2023-10-27] MEDS: OPTIRAY 320 125ml IV ONE (14:16)
[2023-10-27 14:18] LABS: Urine Potassium 20.2 mmol/L
[2023-10-27] MEDS: POTASSIUM CHLORIDE CRTAB 20 MEQ TABCR PO STA ×2 (14:28→23:22)
[2023-10-27] MEDS: POTASSIUM CHLORIDE / WTR 10 MEQ/100 ML PLCT IV SCH (14:30)
[2023-10-27 14:34] LABS: Appearance Urine Clear (Clear); Bilirubin Urine Negative (Negative); Blood Urine Negative (Negative); Color Urine Yellow; Glucose Urine UA 2+ (Negative); Ketones Urine Negative (Negative); Leukocyte Esterase Urine Negative (Negative); Nitrite Urine Negative (Negative); Protein Urine Negative (Negative); Specific Gravity Urine 1.009 (1.000-1.030); Urobilinogen Urine Negative (Negative); pH Urine 7.5 (4.5-7.5)
--- NOTE | 2023-10-27 14:47 | CT Scan Report ---
CT angio head w con, CT head/brain wo con, CT angio neck with con CLINICAL HISTORY: 62 years-old Female with a fib, vertigo, not anticoag. Acute stroke like symptom s COMPARISON STUDY: Brain MRI 06/05/2023 TECHNIQUE: Unenhanced axial CT scan of the brain is performed. Subsequently, following the IV adminis tration of 118 cc of Optiray, CT angiogram of the head and neck was performed from the aortic arch to the skull apex. Images are reviewed in the axial, sagittal, and coronal planes. 3-D MIPS images are created and assessed. IV contrast was administered without complication. All measurements were obtain ed according to NASCET criteria. A dose lowering technique was utilized adhering to the principles of ALARA. CT DOSE: 1112.49 mGy.cm FINDINGS: CT BRAIN: There is no acute intracranial hemorrhage, midline shift, hydrocephalus, intracranial mass, territori al ischemia or abnormal extra-axial collections. Mild involutional changes with ex vacuo ventriculome paris. Right-sided gland repair. No abnormal intra-axial or extra-axial enhancement. Mastoid air cell s and middle ear cavities are clear. No calvarial fracture. Paranasal sinuses are clear. CT ANGIOGRAM OF THE HEAD AND NECK: Median sternotomy. Atherosclerosis of the thoracic aortic arch. There is patency of the nominate and imaged subclavian arteries. The common carotid arteries are widely patent. Moderate atherosclerotic p laque of the carotid bulbs and proximal cervical segments of the internal carotid arteries results in less than 50% stenosis bilaterally. The bilateral anterior and middle cerebral arteries are also pat ent. Dominant left vertebral artery. The vertebral arteries are patent bilaterally. The majority of t he right vertebral artery terminates into the right PICA. The basilar and posterior cerebral arteries are patent. There is no aneurysm, high-grade stenosis, or proximal branch occlusion identified. Dura l sinuses appear patent. Lung apices are clear. Subcentimeter hypodense thyroid nodules. Probable left supraclavicular lipoma measuring approximately 7 cm. There is developmental bony fusion of the right first and second ribs w ith hypoplastic left first rib. Degenerative changes of the cervical spine. IMPRESSION: 1. No acute intracranial abnormality. 2. Atherosclerosis without aneurysm, dissection, high-grade stenosis or arterial occlusion identified . ACT 112: Negative or not required by law. The above report was generated using voice recognition software. It may contain grammatical, syntax o r spelling errors. Electronically signed by: Rafa Leslie M.D. 10/27/2023 2:45 PM
[2023-10-27 14:52] LABS: Base Excess ABG 19.9 mEq/L (-9-1.8); HCO3 ABG 43 mmol/L (19-24); Oxygen Saturation ABG 98.1 % (90-95); PCO2 ABG 41 mmHg (35-46); PO2 ABG 116 mmHg (80-95)
[2023-10-27] MEDS ORDERED: PHARMACY GLYCEMIC MGMT CONSULT PRN (14:52)
[2023-10-27 14:59] LABS: Allen Test Pos (Pos)
[2023-10-27 15:01] LABS: pH ABG 7.63 (7.35-7.45)
[2023-10-27] MEDS ORDERED: CARBOHYDRATES FOR HYPOGLYCEMIA PO PRN (15:15)
[2023-10-27] MEDS ORDERED: GLUCOSE 40% GEL 15 GM TUBE PO PRN (15:15)
[2023-10-27] MEDS ORDERED: DEXTROSE 50% 50 ML SYRINGE IV PRN (15:15)
[2023-10-27] MEDS ORDERED: GLUCOSE 10 TAB/TUBE PO PRN (15:15)
[2023-10-27] MEDS ORDERED: GLUCAGON FOR INJ 1 MG VIAL IM PRN (15:15)
--- NOTE | 2023-10-27 15:51 | History & Physical Report ---
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 Patient has a complicated recent course this started in May 2023 when she was seen at [facility] for melena and abdominal pain and found to have possible pneumoperitoneum and was [place] [facility] [place]06[place]. While there, underwent 2 ex lap surgeries without evidence of perforation. Hospital [place] [facility] [place] complicated by C. difficile infection, COVID-19 infection and splenic infarcts (ALMA from 06/21 without intracardiac mass, vegetation or thrombus). Discharged to SNF on 06/22/23. Was then admitted from SNF to [facility] from 06/25-06/29 for melena and coffee ground emesis. During admission, underwent transfusion of 4u PRBCs and endoscopy was performed on 06/27 with multiple ulcers noted in the transverse/left/sigmoid colon compatible with ischemia and were biopsied. Hemoglobin remained stable following blood transfusion and no other intervention was done. Was discharged to a SNF and then returned home about a month ago, where she lives alone. Vertigo H/o benign paroxysmal positional vertigo due to bilateral vestibular disorder Improved in ED after meclizine, continue home dose CT head, head/neck CTA without acute findings Resp biofire negative Acute hyponatremia Initial Na 121 (125-126 when correcting for hyperglycemia) Serum and urine osms consistent with hypotonic hypovolemic hyponatremia Started on NSS 125ml /hr Case discussed with Dr. Baumann Repeat BMP contaminated, repeat resulting around 18:47 with Na of 124 Continue BMPs Q4 overnight, holding diuretics Acute hyperglycemia in setting of DM II BSG initially 380 -> 225 with SQ insulin Questionable compliance with insulin in the past Appreciate glycemic pharmacy recs Hold home agents Glycemic consult placed BSG AC HS Acute hypokalemia Initial K 2.3 - initially denied any diarrhea but later discovered she has recently resumed lactulose for longstanding history of LEYVA cirrhosis; holding until lytes normalize Metabolic alkalosis ABG with pH 7.6, CO2 40 in setting of recently starting lactulose, ? worsening renal disease, recent GI pathology as detailed above Appreciate nephrology recs, continuing NSS Cirrhosis 2/2 LEYVA Diuretics held for now, appears dry clinically. Will need GI follow up given recent hospitalizations Atrial fibrillation A fib with RVR noted during May admission here that spontaneously converted back to sinus with frequent atrial ectopy Of note, did have a ziopatch monitor ordered by cardiology on 10/15/23 to further assess underlying a fib (seen during previous admission but variable) given recent splenic infarct (ALMA from [place]21 [place] [facility] [place] intracardiac mass, vegetation or thrombus) Initial EKG with rate controlled A fib, repeat EKG while still in ED with sinus rhythm with aberrant conduction. Continue to monitor on tele, continue Lopressor, consider cardiology consult if recurs HFpEF s/p TAVR Recent 2D echo with EF 65% CXR today with cardiomegaly without acute process Monitor volume status closely CAD S/P stent Chronic, stable. Continue plavix, statin, beta nayeli CKD III Initial Cr 1.25 -> 1.08 closer to baseline after IV fluids. Continue to monitor closely H/O colon cancer H/O breast cancer S/P bilateral mastectomy, radiation Mood disorder H/O schizoaffective disorder, bipolar type Home medications recently discontinued during hospitalizations given polypharmacy except for gabapentin TID, trazodone HS Recent epistaxis Reported nosebleed at home after picking a few days ago before dizziness started; self- packed with tampons and rolled paper Started on Rocephin for empiric coverage DANYELLE CPAP at bedtime DVT Ppx: SQ heparin Code status: FULL PCP: [facility] Dispo: admitted to PCU Patient seen in collaboration with Dr. Abraham. Please see addendum. I spent a total of 80 minutes coordinating, documenting, and providing care for this patient excluding time spent in the performance of separately billed services. 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 Has history of vertigo but usually if she eats well and gets a good nights rest it resolves on its own, but in this circumstance she woke up and still felt that the room was spinning. Presented to the ED for further evaluation. Denies F/C, headache, CP, SOB, N/V, abdominal pain, dysuria, diarrhea or constipation. Did reportedly recently ? start taking lactulose for h/o cirrhosis but states bowel movements have not been black or bright red in color. Taking all medications as directed. Did also admit to ordering a liver supplement over the internet that she started within the past week. Unsure what it is. Patient has a complicated recent course this started in May 2023 when she was seen at [facility] for melena and abdominal pain and found to have possible pneumoperitoneum and was transferred to [facility] [place] was admitted from 06/06-06/22. While there, underwent 2 ex lap surgeries without evidence of perforation. Hospital [place] [facility] [place] complicated by C. difficile infection, COVID-19 infection and splenic infarcts (ALMA from 06/21 without intracardiac mass, vegetation or thrombus). Discharged to SNF on 06/22/23. Was then admitted from SNF to [facility] from 06/25-06/29 for melena and coffee ground emesis. During admission, underwent transfusion of 4u PRBCs and endoscopy was performed on 06/27 with multiple ulcers noted in the transverse/left/sigmoid colon compatible with ischemia and were biopsied. Hemoglobin remained stable following blood transfusion and no other intervention was done. Was discharged to a SNF and then returned home about a month ago, where she lives alone. Of note, did have a ziopatch monitor ordered by cardiology on 10/15/23 to further assess underlying a fib (seen during previous admission but variable) given recent splenic infarct. Allergies Allergy/AdvReac Type Severity Reaction Status Date / Time glycerin Allergy Intermediate ITCHING, Verified 10/27/23 15:43 BURNING FROM TOPICALS lactose Allergy Intermediate Gastrointestinal Verified 10/27/23 15:43 Upset Penicillins Allergy Intermediate Rash Verified 10/27/23 15:43 adhesive tape AdvReac Intermediate CAN NOT Verified 10/27/23 15:43 TOLERATE BANDAIDS lisinopril AdvReac Intermediate Cough Verified 10/27/23 15:43 monosodium glutamate AdvReac Intermediate EDEMA OF Verified 10/27/23 15:43 HANDS & FEET Home Medications Medication Instructions Recorded Confirmed Type atorvastatin 40 mg tablet (Lipitor) 40 mg PO DAILY 05/02/19 10/27/23 History clopidogrel 75 mg tablet (Plavix) 75 mg PO DAILY 05/02/19 10/27/23 History levothyroxine 75 mcg tablet 75 mcg PO DAILY 05/02/19 10/27/23 History meclizine 25 mg tablet 50 mg PO BID 05/02/19 10/27/23 History torsemide 10 mg tablet 10 mg PO DAILY 05/02/19 10/27/23 History magnesium oxide 400 mg PO DAILY 02/14/23 10/27/23 History metolazone 2.5 mg tablet 2.5 mg PO 2XWK 02/14/23 10/27/23 History trazodone 100 mg tablet 100 mg PO HS Insomnia 02/14/23 10/27/23 History flash glucose scanning reader #1 ea 02/15/23 Rx (FreeStyle Keisha 2 [place]) ammonium lactate 12 % lotion 1 applic topical DAILY 06/03/23 10/27/23 History aspirin 81 mg tablet,delayed 81 mg PO DAILY 06/03/23 10/27/23 History release clindamycin HCl 300 mg capsule 600 mg PO DIRECTED PRN PRIOR TO 06/03/23 10/27/23 History DENTAL APPT cranberry extract-vitamin C 250 2 cap PO TID 06/03/23 10/27/23 History mg-60 mg capsule (Azo Cranberry Plus Vit C) fluticasone propionate 50 2 spray intranasal DAILY 06/03/23 10/27/23 History mcg/actuation nasal spray,suspension insulin degludec 200 unit/mL (3 30 unit subcut HS 06/03/23 10/27/23 History mL) subcutaneous pen (Tresiba FlexTouch U-200 insulin) melatonin 10 mg tablet 10 mg PO HS 06/03/23 10/27/23 History multivitamin with minerals 1 tab PO DAILY 06/03/23 10/27/23 History nystatin 100,000 unit/gram topical 1 applic topical DIRECTED PRN 06/03/23 10/27/23 History powder Skin Irritation potassium chloride 10 mEq 10 meq PO BID 06/03/23 10/27/23 History tablet,extended release(part/cryst) semaglutide 2 mg/dose (8 mg/3 mL) 2 mg subcut WK 06/03/23 10/27/23 History subcutaneous pen injector (Ozempic) Al hyd-Mg tr-alg ac-sod bicarb 80 1 tab PO DIRECTED PRN Gi Upset 10/27/23 10/27/23 History mg-14.2 mg chewable tablet (Gaviscon) gabapentin 100 mg capsule 100 mg PO TID 10/27/23 10/27/23 History insulin aspart U-100 100 unit/mL 0 unit subcut TIDM 50 UNITS/DAILY 10/27/23 10/27/23 History (3 mL) subcutaneous pen (Novolog FlexPen U-100 Insulin aspart) metformin 1,000 mg tablet 1,000 mg PO BID 10/27/23 10/27/23 History metoprolol tartrate 25 mg tablet 25 mg PO BID 10/27/23 10/27/23 History Past Med/Surg History Medical History (Updated 10/28/23 @ 08:21 by Fidelina Baumann MD, PhD) Acute hyperglycemia Hypomagnesemia Hypokalemia Intertrigo Chest pain Pulmonary embolism Altered mental status UTI (urinary tract infection) Pleuritic chest pain CKD (chronic kidney disease) stage 3, GFR 30-59 ml/min IDDM (insulin dependent diabetes mellitus) CAD (coronary artery disease) Uterine cancer 2014--sx, no chemo/radiation Breast cancer, right breast 2007--Sx, chemo/radiation Colon cancer 2004--sx, no chemo or radiation Liver cirrhosis non-alcoholic Hypothyroidism Diabetes mellitus, type 2 On anticoagulant therapy Cataract of both eyes Depression Anxiety Aortic valve stenosis Cardiac murmur Follows with Dr. Muniz Hyperlipidemia Hypertension Sleep apnea Cpap History of removal of breast implant "Left " Depression with anxiety DANYELLE (obstructive sleep apnea) Hypothyroidism HTN (hypertension) Heart failure Dyslipidemia Cataract Aortic valvar stenosis Breast cancer Colon cancer Surgical History Presence of stent in coronary artery S/P TAVR (transcatheter aortic valve replacement) History of percutaneous coronary intervention prior to TAVR in order to protect her left main, she also had a 3.5 x 23 millimeter drug-eluting stent placed in the left main/LAD, which was expanded out into the aorta. History of cardiac cath x2--2010 @ [facility] 07/2017 @ [facility]-no stent, follows with Dr. Muniz S/P foot surgery, right "foot was widening" History of section x4 H/O breast surgery L implant infected and was removed History of breast reconstruction Bilt breast after masectomy History of bilateral tubal ligation History of dilatation and curettage History of carpal tunnel release bilt History of colonoscopy History of esophagogastroduodenoscopy (EGD) History of total abdominal hysterectomy and bilateral salpingo-oophorectomy 2014 D/T uterine cancer H/O breast biopsy right--malignant H/O bilateral mastectomy 01/2008--breast cancer History of [place] [facility] [place] [facility] History of appendectomy History of open heart surgery 2011 @ [facility] [place] H/O aortic valve replacement 06/2017 @ [facility] [place] [facility] History of hysterectomy with bilateral oophorectomy History of appendectomy History of partial colectomy S/P mastectomy, bilateral H/O colonoscopy Previous section History of carpal tunnel surgery of right wrist History of carpal tunnel surgery of left wrist TAVR 2017 H/O aortic valve replacement #25 Manga aortic valve bioprosthesis placed in 2010, and 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 On 11/06/2017 she underwent transcatheter aortic valve replacement receiving a 26 mm Hernandez-Bing S3 prosthesis Family History Grandmother Family history of diabetes mellitus maternal Family/Other Family history of diabetes mellitus paternal aunt Father , of premature CAD Coronary heart disease Mother , of premature CAD Coronary heart disease Social History Smoking Status: Never smoker Second Hand Exposure: No; Do You Dip or Chew Tobacco: No; Tobacco Cessation Education Requested by Patient: No Hx Alcohol Use: No Hx Substance Use: No Preferred Language: Mohawk Communication Ability: Effective Director Emergency Department Required: No Beliefs That Will Affect Care: None marital status: Single marital status details: has fiance Current Living Situation: Alone Current Living Situation Comment: aid from 8-3 M-F Other Information That Helps Us Care for You: No Feels Safe at Home: Yes Safety Concerns: Feels Safe At This Time Assistive Devices: Cane and Walker Review of Systems Review of Systems: At least ten systems reviewed and negative except as noted in the HPI. Physical Exam Physical Exam: General Appearance: WD/WN, vitals as above, NAD, sitting up in bed, pleasant, conversing easily Head: normocephalic, atraumatic Eyes: normal inspection, PERRL, conjunctivae normal, anicteric sclerae ENT: external ear and nose normal, oropharynx with dry mucous membranes Neck: normal visual inspection, trachea midline, no thyromegaly Respiratory: normal respiratory effort, lungs clear to auscultation, no wheeze, rales, rhonchi. No accessory muscle use Cardiovascular: irregular rate and rhythm, no murmur, normal peripheral pulses, no BLE edema. Vessels: no JVD Chest: normal inspection of chest Abdomen/GI: normal bowel sounds, soft, nontender, no hepatosplenomegaly Extremities/Musculoskeletal: no cyanosis or clubbing, extremities motor strength 5/5 Neurologic: PERRL, EOMI, accommodation nl, no face palsy, no dysarthria, CN's II-XI intact bilaterally and moves all extremities Psychiatric: A+Ox3, euthymic affect Skin: no rashes, normal color, warm/dry Results & Data Results & Data Vital Signs (Past 12 Hours) Vital Signs Temp Pulse Pulse Resp BP BP Pulse Ox 10/27/23 13:25 97 H 24 98 10/27/23 12:13 22 154/76 H 91 10/27/23 12:06 36.7 C 99 H 22 154/76 H 96 O2 Del Method O2 Flow Rate 10/27/23 13:25 Nasal Cannula 2 10/27/23 12:13 Room Air 02/03/24 12:06 Room Air Laboratory Results Short CBC 10/27/23 Range/Units 12:22 WBC 7.90 (4.8-10.8) K/ul Hgb 12.0 (12.0-16.0) g/dl Hct 33.3 L (37.0-47.0) % Plt Count 154 (130-400) K/uL BMP 10/27/23 12:22 Sodium 121 L Potassium 2.3 L* Chloride 70 L Carbon Dioxide 39 H BUN 22 Creatinine 1.25 H Glucose 380 H* Calcium 9.1 Liver Function 10/27/23 Range/Units 12:22 Total Bilirubin 1.1 H (0.2-1.0) mg/dl AST 14 (13-39) U/L ALT 8 (7-52) U/L Alkaline Phosphatase 84 (34-104) U/L Albumin 4.0 (3.4-5.0) gm/dl Urine 10/27/23 Range/Units 13:58 Urine Color Yellow Urine Appearance Clear (Clear) Urine pH 7.5 (4.5-7.5) Ur Specific [place] 1.009 (1.000-1.030) Urine Protein Negative (Negative) Urine Glucose (UA) 2+ H (Negative) Diagnostic Findings Head CTA 10/27/23 12:32 CT angio head w con, CT head/brain wo con, CT angio neck with con CLINICAL HISTORY: 62 years-old Female with a fib, vertigo, not anticoag. Acute stroke like symptoms COMPARISON STUDY: Brain MRI 06/05/2023 TECHNIQUE: Unenhanced axial CT scan of the brain is performed. Subsequently, following the IV administration of 118 cc of Optiray, CT angiogram of the head and neck was performed from the aortic arch to the skull apex. Images are reviewed in the axial, sagittal, and coronal planes. 3-D MIPS images are created and assessed. IV contrast was administered without complication. All measurements were obtained according to NASCET criteria. A dose lowering technique was utilized adhering to the principles of ALARA. CT DOSE: 1112.49 mGy.cm FINDINGS: CT BRAIN: There is no acute intracranial hemorrhage, midline shift, hydrocephalus, intracranial mass, territorial ischemia or abnormal extra-axial collections. Mild involutional changes with ex vacuo ventriculomegaly. Right-sided gland repair. No abnormal intra-axial or extra-axial enhancement. Mastoid air cells and middle ear cavities are clear. No calvarial fracture. Paranasal sinuses are clear. CT ANGIOGRAM OF THE HEAD AND NECK: Median sternotomy. Atherosclerosis of the thoracic aortic arch. There is patency of the nominate and imaged subclavian arteries. The common carotid arteries are widely patent. Moderate atherosclerotic plaque of the carotid bulbs and proximal cervical segments of the internal carotid arteries results in less than 50% stenosis bilaterally. The bilateral anterior and middle cerebral arteries are also patent. Dominant left vertebral artery. The vertebral arteries are patent bilaterally. The majority of the right vertebral artery terminates into the right PICA. The basilar and posterior cerebral arteries are patent. There is no aneurysm, high-grade stenosis, or proximal branch occlusion identified. Dural sinuses appear patent. Lung apices are clear. Subcentimeter hypodense thyroid nodules. Probable left supraclavicular lipoma measuring approximately 7 cm. 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 Degenerative changes of the cervical spine. IMPRESSION: 1. No acute intracranial abnormality. 2. Atherosclerosis without aneurysm, dissection, high-grade stenosis or arterial occlusion identified. ACT 112: Negative or not required by law. The above report was generated using voice recognition software. It may contain grammatical, syntax or spelling errors. Electronically signed by: Rafa Leslie M.D. 10/27/2023 2:45 PM Neck CTA 10/27/23 12:32 CT angio head w con, CT head/brain wo con, CT angio neck with con CLINICAL HISTORY: 62 years-old Female with a fib, vertigo, not anticoag. Acute stroke like symptoms COMPARISON STUDY: Brain MRI 06/05/2023 TECHNIQUE: Unenhanced axial CT scan of the brain is performed. Subsequently, following the IV administration of 118 cc of Optiray, CT angiogram of the head and neck was performed from the aortic arch to the skull apex. Images are reviewed in the axial, sagittal, and coronal planes. 3-D MIPS images are created and assessed. IV contrast was administered without complication. All measurements were obtained according to NASCET criteria. A dose lowering technique was utilized adhering to the principles of ALARA. CT DOSE: 1112.49 mGy.cm FINDINGS: CT BRAIN: There is no acute intracranial hemorrhage, midline shift, hydrocephalus, intracranial mass, territorial ischemia or abnormal extra-axial collections. Mild involutional changes with ex vacuo ventriculomegaly. Right-sided gland repair. No abnormal intra-axial or extra-axial enhancement. Mastoid air cells and middle ear cavities are clear. No calvarial fracture. Paranasal sinuses are clear. CT ANGIOGRAM OF THE HEAD AND NECK: Median sternotomy. Atherosclerosis of the thoracic aortic arch. There is patency of the nominate and imaged subclavian arteries. The common carotid arteries are widely patent. Moderate atherosclerotic plaque of the carotid bulbs and proximal cervical segments of the internal carotid arteries results in less than 50% stenosis bilaterally. The bilateral anterior and middle cerebral arteries are also patent. Dominant left vertebral artery. The vertebral arteries are patent bilaterally. The majority of the right vertebral artery terminates into the right PICA. The basilar and posterior cerebral arteries are patent. There is no aneurysm, high-grade stenosis, or proximal branch occlusion identified. Dural sinuses appear patent. Lung apices are clear. Subcentimeter hypodense thyroid nodules. Probable left supraclavicular lipoma measuring approximately 7 cm. 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 Degenerative changes of the cervical spine. IMPRESSION: 1. No acute intracranial abnormality. 2. Atherosclerosis without aneurysm, dissection, high-grade stenosis or arterial occlusion identified. ACT 112: Negative or not required by law. The above report was generated using voice recognition software. It may contain grammatical, syntax or spelling errors. Electronically signed by: Rafa Leslie M.D. 10/27/2023 2:45 PM Chest X-Ray 10/27/23 12:33 XR chest 1V portable HISTORY: 62 years-old Female weakness acute weakness COMPARISON: 06/06/2023 TECHNIQUE: AP view of the chest FINDINGS: Cardiac silhouette is enlarged. Median sternotomy with cardiac valvular prosthesis. No pneumothorax or large pleural effusion. There is persistent blunting of the right lateral costophrenic angle. Mild chronic interstitial coarsening. Left breast implant. Degenerative changes of the shoulders and spine with rotator cuff calcific tendinosis. IMPRESSION: Cardiomegaly without acute process. ACT 112: Negative or not required by law. The above report was generated using voice recognition software. It may contain grammatical, syntax or spelling errors. Electronically signed by: Rafa Leslie M.D. 10/27/2023 1:[address] 10/27/23 12:34 CT angio head w con, CT head/brain wo con, CT angio neck with con CLINICAL HISTORY: 62 years-old Female with a fib, vertigo, not anticoag. Acute stroke like symptoms COMPARISON STUDY: Brain MRI 06/05/2023 TECHNIQUE: Unenhanced axial CT scan of the brain is performed. Subsequently, following the IV administration of 118 cc of Optiray, CT angiogram of the head and neck was performed from the aortic arch to the skull apex. Images are reviewed in the axial, sagittal, and coronal planes. 3-D MIPS images are created and assessed. IV contrast was administered without complication. All measurements were obtained according to NASCET criteria. A dose lowering technique was utilized adhering to the principles of ALARA. CT DOSE: 1112.49 mGy.cm FINDINGS: CT BRAIN: There is no acute intracranial hemorrhage, midline shift, hydrocephalus, intracranial mass, territorial ischemia or abnormal extra-axial collections. Mild involutional changes with ex vacuo ventriculomegaly. Right-sided gland repair. No abnormal intra-axial or extra-axial enhancement. Mastoid air cells and middle ear cavities are clear. No calvarial fracture. Paranasal sinuses are clear. CT ANGIOGRAM OF THE HEAD AND NECK: Median sternotomy. Atherosclerosis of the thoracic aortic arch. There is patency of the nominate and imaged subclavian arteries. The common carotid arteries are widely patent. Moderate atherosclerotic plaque of the carotid bulbs and proximal cervical segments of the internal carotid arteries results in less than 50% stenosis bilaterally. The bilateral anterior and middle cerebral arteries are also patent. Dominant left vertebral artery. The vertebral arteries are patent bilaterally. The majority of the right vertebral artery terminates into the right PICA. The basilar and posterior cerebral arteries are patent. There is no aneurysm, high-grade stenosis, or proximal branch occlusion identified. Dural sinuses appear patent. Lung apices are clear. Subcentimeter hypodense thyroid nodules. Probable left supraclavicular lipoma measuring approximately 7 cm. 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 Degenerative changes of the cervical spine. IMPRESSION: 1. No acute intracranial abnormality. 2. Atherosclerosis without aneurysm, dissection, high-grade stenosis or arterial occlusion identified. ACT 112: Negative or not required by law. The above report was generated using voice recognition software. It may contain grammatical, syntax or spelling errors. Electronically signed by: Rafa Leslie M.D. 10/27/2023 2:45 PM Code Status & VTE Plan VTE Prophylaxis Plan VTE Prophylaxis will be ordered: Yes Supervising Physician Co-Signing Physician Notes Pt seen and examined by me, care coordinated w/ Toney España PA-C, pls see her note above for further detail. Pt presents with dizziness and found to have metab.alkalosis, hyponatremia, hypokalemia, fairly recent complicated hospital course reviewed. She is currently laying in bed, in no acute distress, and able to provide history. She tells me that after she came back from hospital and rehab home, she was doing fairly well. Most recently though she restarted to take lactulose about 3 to 4 days ago. She is also taking liver supplements that she obtained on the Internet, and eyedrops that she obtained on the Internet. She does not know what liver supplement contain or whether is it made of. She also reports a recent nosebleed, which she packed with rolled tissue paper and was able to karen ntually stop. No fevers chills chest pain shortness of breath. Overall just does not feel well, and dizzy and weak. No nausea vomiting. Had some loose stools after starting lactulose. Abdominal pain seems controlled, says her abdomen has been healing since the surgery fairly well. Lungs are clear to auscultation. Heart sounds very regular, with some extra PVCs. Abdomen soft mostly nontender to palpation no guarding, positive bowel sounds. Patient is moving all extremities while laying in bed. Repleting electrolytes, giving IV fluids, plan to very closely continue to monitor BMP. Nephrology consulted and discussed with. MD Leigh
[2023-10-27] MEDS: LANTUS PER UNIT CHARGE SC ONE (16:51)
[2023-10-27 17:39] LABS: Adenovirus PCR Not Detected (NotDetected); Bordetella parapertussis PCR Not Detected (NotDetected); Bordetella pertussis PCR Not Detected (NotDetected); Chlamydia pneumoniae PCR Not Detected (NotDetected); Coronavirus 229E PCR Not Detected (NotDetected); Coronavirus CoV-2 (COVID19)PCR Not Detected (NotDetected); Coronavirus HKU1 PCR Not Detected (NotDetected); Coronavirus NL63 PCR Not Detected (NotDetected); Coronavirus OC43PCR Not Detected (NotDetected); Human Metapneumovirus PCR Not Detected (NotDetected); Influenza A PCR Not Detected (NotDetected); Influenza B PCR Not Detected (NotDetected); Mycoplasma pneumoniae PCR Not Detected (NotDetected); Parainfluenza Virus 1 PCR Not Detected (NotDetected); Parainfluenza Virus 2 PCR Not Detected (NotDetected); Parainfluenza Virus 3 PCR Not Detected (NotDetected); Parainfluenza Virus 4 PCR Not Detected (NotDetected); Respiratory Syncytial VirusPCR Not Detected (NotDetected); Rhinovirus/Enterovirus PCR Not Detected (NotDetected)
[2023-10-27] MEDS: cefTRIAXone SODIUM 2,000 MG in DEXTROSE 5 % MINI-B 50 ML IV SCH (17:51)
[2023-10-27 19:12] LABS: Calcium 8.8 mg/dl (8.6-10.3); Potassium 3.3 mmol/L (3.5-5.1)
[2023-10-27 19:18] LABS: BUN Creatinine Ratio 15.7 (10-20); Creatinine Clr Calc Pharmacy 45.3 ml/min; Est GFR (African American) 62.8 ml/min; Est GFR (Non-African American) 54.2 ml/min
[2023-10-27] MEDS ORDERED: ONDANSETRON INJ 2 MG/ML 2 ML VIAL IV PRN (19:23)
[2023-10-27] MEDS: INSULIN ASPART PER UNIT CHARGE SC SCH ×2 (20:16→23:26)
[2023-10-27] MEDS: traZODone HCL 100 MG TAB PO SCH (20:42)
[2023-10-27] MEDS: METOPROLOL TARTRATE 25 MG TAB PO SCH (20:42)
[2023-10-27] MEDS: POTASSIUM CHLORIDE 10 MEQ TABCR PO SCH (20:42)
[2023-10-27] MEDS: GABAPENTIN 100 MG CAP PO SCH (20:42)
[2023-10-27] MEDS: MELATONIN 3 MG TAB PO SCH (20:42)
[2023-10-27] MEDS: MECLIZINE HCL 25 MG TAB PO SCH (20:45)
[2023-10-27 22:43] LABS: BUN Creatinine Ratio 12.3 (10-20); Calcium 8.7 mg/dl (8.6-10.3); Creatinine Clr Calc Pharmacy 33.5 ml/min; Est GFR (African American) 43.6 ml/min; Est GFR (Non-African American) 37.6 ml/min; Potassium 2.9 mmol/L (3.5-5.1)
[2023-10-28] MEDS: POTASSIUM CHLORIDE / WTR 10 MEQ/100 ML PLCT IV SCH (00:07)
[2023-10-28] MEDS: POTASSIUM CHLORIDE CRTAB 20 MEQ TABCR PO STA ×2 (00:07→03:26)
[2023-10-28 01:42] LABS: BUN Creatinine Ratio 12.7 (10-20); Calcium 8.8 mg/dl (8.6-10.3); Creatinine Clr Calc Pharmacy 34.4 ml/min; Est GFR (African American) 45.1 ml/min; Est GFR (Non-African American) 38.9 ml/min; Potassium 3.1 mmol/L (3.5-5.1)
[2023-10-28] MEDS: LEVOTHYROXINE SODIUM 75 MCG TABLET PO SCH (05:41)
--- NOTE | 2023-10-28 06:41 | Electrocardiogram Report ---
Test Reason : Blood Pressure : / mmHG Vent. Rate : 104 BPM Atrial Rate : 000 BPM P-R Int : 000 ms QRS Dur : 094 ms QT Int : 384 ms P-R-T Axes : 000 -46 129 degrees QTc Int : 504 ms Atrial fibrillation with rapid ventricular response Left axis deviation Moderate voltage criteria for LVH, may be normal variant ( R in aVL , Miguelangel product ) Prolonged QT Abnormal ECG When compared with ECG of 06-JUN-2023 10:11, Atrial fibrillation has replaced Sinus rhythm T wave inversion no longer evident in Inferior leads T wave inversion no longer evident in Anterolateral leads Confirmed by Mark Maurer ([id number]) on 10/28/2023 6:41:16 AM Referred By: REFERRED SELF Confirmed By:Mark Maurer
--- NOTE | 2023-10-28 07:42 | Nephrology Consultation ---
Date of Consultation October 28, 2023 Assessment & Plan (1) Electrolyte and fluid disorder: improving moderate chronic hyponatremia apparently hypovolemic given response to IVF. presented w/ corrected sodium 125 at 1230 on 10/27; goal is Na no more than 131 this PM; correcting appropriately initially severe but improving hypokalemia after massive supplementation severe hypochloremia, improving ? if this group of disorders along w/ metabolic alkalosis stem from severe contraction/volume depletion from diuretics in setting of lactulose; ? role for unknown internet liver supplement. -Given severity of her electrolyte disorders on presentation, would recheck basic metabolic panel this afternoon and again in the morning; recheck ordered for 1600 >> sNa 126 on this; will give 1/2 L NS overnight w/ small amount of K -for now further potassium supplementation has been held since we are not diuresing her and she is not any longer on regimens to promote stooling (2) Acute renal failure: stable (as of 010 today) stage 1 nonoliguric. baseline creatinine 0.9-1.0 (though admittedly few OP datapoints available); presented w/ creat 1.3, up to 1.4 yesterday am. was already in HEIDY on recent OP labs 10/15, which apparently did not improve w/ stopping metolazone. suspect by hx and by use of lactulose, diuretics and response to NS that she is volume depleted; however dilute urine on admission is striking/notable. (3) Metabolic alkalosis: pH 7.63 on ABG on presentation. appears to be severe contraction; low threshold to repeat VBG if issues but no indication currently History of Present Illness Reason for Consultation: hyponatremia metabolic alkalosis Requesting Physician: Dr Abraham Attending Physician: John Abraham MD History of Present Illness 62 y/o F whom I'm asked to see for hyponatremia and metabolic alkalosis was admitted yesterday afternoon for same in the setting of HFpEF and paroxysmal a fib after presenting with an exacerbation of her chronic vertigo. 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 her baseline creatinine is somewhat difficult to pin down as we have few OP data points but it appears to be 0.9-1.0 for the past few years for an eGFR of about 70. Also w/ benign paroxysmal positional vertigo due to bilateral vestibular disorder, which usually w/ good self care (rest, eating regularly) resolves on its own but yesterday did not. Also w/ complex recent hospital admissions: >May 2023 presented here w/ abd pain/melena and then [place] [facility] [place] w/ concern for pneumoperitoneum where she had 2 ex lap procedures finding no evidence of perforation. Hospital course [place] [facility] was complicated by C. difficile infection, COVID-19 infection and splenic infarcts (ALMA from 06/21 without intracardiac mass, vegetation or thrombus). Discharged to SNF on 06/22/23. >June 2023 admitted to [facility] in [facility] from 06/25-06/29 w/ melena and coffee ground emesis needing 4 units PRBCs and w06/27 endoscopy showing multiple transverse/left/sigmoid colon ulcers compatible with ischemia. These were biopsied (reports not available). Pt d/c to SNF and then in late Aug/early September d/c home. She had seen cardiology [facility] recently on 10/15 and had labs that day, remarkable for some mild electrolyte abnormalities and worsening creatinine (see below). Metolazone was stopped w/ plan to repeat labs in one week. She presented with sNa 121 (BG 380), K 2.3, bicarb 39, creat 1.3, iCa 0.96. ABG on 2L showed pH 7.63 (sic)pCO2 41, pO2 116, HCO3 43. Her hgb was 12. so far this admission she has had 2.4L NS and extensive K supplementation including as of this AM 80 mEq IV and 140 mEq po. She also had IV contrast for CT imaging to evaluate her head and neck. She tells me she recently began lactulose which she had on hand at home to clear up some constipation. she had 4 days of watery diarrhea prior to aadmissoin. She also had recently begun a liver supplement that she'd found on the internet. Her son and DIL are bedside for interview. Seen at about 1430 this PM > feels improved, not sob, no abdominal pain though she does endorse a "fluttery feeling" in her epigastric area. She tells me she's lost a lot of weight > about 40 lb since the [facility] stay which she attributes in part to ozempic as well. no N. no edema. no new/worrisome voiding sx. no f/c. no rash. no cough. Allergies Allergy/AdvReac Type Severity Reaction Status Date / Time glycerin Allergy Intermediate ITCHING, Verified 10/27/23 15:43 BURNING FROM TOPICALS lactose Allergy Intermediate Gastrointestinal Verified 10/27/23 15:43 Upset Penicillins Allergy Intermediate Rash Verified 10/27/23 15:43 adhesive tape AdvReac Intermediate CAN NOT Verified 10/27/23 15:43 TOLERATE BANDAIDS lisinopril AdvReac Intermediate Cough Verified 10/27/23 15:43 monosodium glutamate AdvReac Intermediate EDEMA OF Verified 10/27/23 15:43 HANDS & FEET Home Medications Medication Instructions Recorded Confirmed Type atorvastatin 40 mg tablet (Lipitor) 40 mg PO DAILY 05/02/19 10/27/23 History clopidogrel 75 mg tablet (Plavix) 75 mg PO DAILY 05/02/19 10/27/23 History levothyroxine 75 mcg tablet 75 mcg PO DAILY 05/02/19 10/27/23 History meclizine 25 mg tablet 50 mg PO BID 05/02/19 10/27/23 History torsemide 10 mg tablet 10 mg PO DAILY 05/02/19 10/27/23 History magnesium oxide 400 mg PO DAILY 02/14/23 10/27/23 History metolazone 2.5 mg tablet 2.5 mg PO 2XWK 02/14/23 10/27/23 History trazodone 100 mg tablet 100 mg PO HS Insomnia 02/14/23 10/27/23 History flash glucose scanning reader #1 ea 02/15/23 Rx (FreeStyle Ke[place] 2 [place]) ammonium lactate 12 % lotion 1 applic topical DAILY 06/03/23 10/27/23 History aspirin 81 mg tablet,delayed 81 mg PO DAILY 06/03/23 10/27/23 History release clindamycin HCl 300 mg capsule 600 mg PO DIRECTED PRN PRIOR TO 06/03/23 10/27/23 History DENTAL APPT cranberry extract-vitamin C 250 2 cap PO TID 06/03/23 10/27/23 History mg-60 mg capsule (Azo Cranberry Plus Vit C) fluticasone propionate 50 2 spray intranasal DAILY 06/03/23 10/27/23 History mcg/actuation nasal spray,suspension insulin degludec 200 unit/mL (3 30 unit subcut HS 06/03/23 10/27/23 History mL) subcutaneous pen (Tresiba FlexTouch U-200 insulin) melatonin 10 mg tablet 10 mg PO HS 06/03/23 10/27/23 History multivitamin with minerals 1 tab PO DAILY 06/03/23 10/27/23 History nystatin 100,000 unit/gram topical 1 applic topical DIRECTED PRN 06/03/23 10/27/23 History powder Skin Irritation potassium chloride 10 mEq 10 meq PO BID 06/03/23 10/27/23 History tablet,extended release(part/cryst) semaglutide 2 mg/dose (8 mg/3 mL) 2 mg subcut WK 06/03/23 10/27/23 History subcutaneous pen injector (Ozempic) Al hyd-Mg tr-alg ac-sod bicarb 80 1 tab PO DIRECTED PRN Gi Upset 10/27/23 10/27/23 History mg-14.2 mg chewable tablet (Gaviscon) gabapentin 100 mg capsule 100 mg PO TID 10/27/23 10/27/23 History insulin aspart U-100 100 unit/mL 0 unit subcut TIDM 50 UNITS/DAILY 10/27/23 10/27/23 History (3 mL) subcutaneous pen (Novolog FlexPen U-100 Insulin aspart) metformin 1,000 mg tablet 1,000 mg PO BID 10/27/23 10/27/23 History metoprolol tartrate 25 mg tablet 25 mg PO BID 10/27/23 10/27/23 History Patient History Medical History (Updated 10/28/23 @ 08:21 by Fidelina Baumann MD, PhD) Acute hyperglycemia Hypomagnesemia Hypokalemia Intertrigo Chest pain Pulmonary embolism Altered mental status UTI (urinary tract infection) Pleuritic chest pain CKD (chronic kidney disease) stage 3, GFR 30-59 ml/min IDDM (insulin dependent diabetes mellitus) CAD (coronary artery disease) Uterine cancer 2014--sx, no chemo/radiation Breast cancer, right breast 2007--Sx, chemo/radiation Colon cancer 2004--sx, no chemo or radiation Liver cirrhosis non-alcoholic Hypothyroidism Diabetes mellitus, type 2 On anticoagulant therapy Cataract of both eyes Depression Anxiety Aortic valve stenosis Cardiac murmur Follows with Dr. Muniz Hyperlipidemia Hypertension Sleep apnea Cpap History of removal of breast implant "Left " Depression with anxiety DANYELLE (obstructive sleep apnea) Hypothyroidism HTN (hypertension) Heart failure Dyslipidemia Cataract Aortic valvar stenosis Breast cancer Colon cancer Surgical History Presence of stent in coronary artery S/P TAVR (transcatheter aortic valve replacement) History of percutaneous coronary intervention prior to TAVR in order to protect her left main, she also had a 3.5 x 23 millimeter drug-eluting stent placed in the left main/LAD, which was expanded out into the aorta. History of cardiac cath x2--2010 @ [facility] 07/2017 @ [facility]-no stent, follows with Dr. Muniz S/P foot surgery, right "foot was widening" History of section x4 H/O breast surgery L implant infected and was removed History of breast reconstruction Bilt breast after masectomy History of bilateral tubal ligation History of dilatation and curettage History of carpal tunnel release bilt History of colonoscopy History of esophagogastroduodenoscopy (EGD) History of total abdominal hysterectomy and bilateral salpingo-oophorectomy 2014 D/T uterine cancer H/O breast biopsy right--malignant H/O bilateral mastectomy 01/2008--breast cancer History of bowel resection 2004 [place] [facility] [place] d/t Colon Cancer History of appendectomy History of open heart surgery 2011 @ [facility] [place] H/O aortic valve replacement 06/2017 @ [facility] [place] History of hysterectomy with bilateral oophorectomy History of appendectomy History of partial colectomy S/P mastectomy, bilateral H/O colonoscopy Previous section History of carpal tunnel surgery of right wrist History of carpal tunnel surgery of left wrist TAVR 2017 H/O aortic valve replacement #25 Manga aortic valve bioprosthesis placed in 2010, and 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 On 11/06/2017 she underwent transcatheter aortic valve replacement receiving a 26 mm Heranndez-Bing S3 prosthesis Family History Grandmother Family history of diabetes mellitus maternal Family/Other Family history of diabetes mellitus paternal aunt Father , of premature CAD Coronary heart disease Mother , of premature CAD Coronary heart disease Social History Smoking Status: Never smoker Second Hand Exposure: No; Do You Dip or Chew Tobacco: No; Tobacco Cessation Education Requested by Patient: No Hx Alcohol Use: No Hx Substance Use: No Preferred Language: Lithuanian Communication Ability: Effective Machine Rough Rounder Required: No Beliefs That Will Affect Care: None marital status: Single marital status details: has fiance Current Living Situation: Alone Current Living Situation Comment: aid from 8-3 M-F Other Information That Helps Us Care for You: No Feels Safe at Home: Yes Safety Concerns: Feels Safe At This Time Assistive Devices: Cane and Walker Review of Systems 2 Review of Systems: All systems reviewed & are unremarkable except as noted in HPI & below Physical Exam 2 Constitutional: well developed, well nourished, + obese and cooperative (sitting in chair on RA; small framed but obese); no acute distress Eyes: EOM intact bilaterally ENMT: Ears: no external ear abnormality Nose: no external nose abnormality Mouth: + dry oral mucous membranes Neck: no nuchal rigidity Respiratory: normal respiratory effort Auscultation: + diminished lung sounds Cardiovascular: RRR, no murmur, no edema Gastrointestinal (Abdomen): Inspection/Auscultation: normal bowel sounds P ercussion/Palpation: abdomen soft; abdomen nontender Musculoskeletal: Extremities: strength 5/5 throughout Skin: no rashes, warm and dry Neurologic: palencia, fluent speech, no tremor Psychiatric: Orientation: alert and oriented x 3 Results & Data Vital Signs (Past 12 Hours) Vital Signs Temp Pulse Pulse Resp BP Pulse Ox O2 Del Method 10/28/23 05:32 94 H 10/28/23 03:10 36.8 C 91 H 18 116/71 93 Nasal Cannula 10/28/23 02:53 Nasal Cannula 10/27/23 22:00 84 10/27/23 21:57 36.9 C 84 18 133/76 98 Nasal Cannula O2 Flow Rate 10/28/23 05:32 10/28/23 03:10 2 10/28/23 02:53 4 10/27/23 22:00 10/27/23 21:57 2 Laboratory Results 10/15/23 [facility] BMP and CBC 131, 3.6, 86, 26, 27, 1.3, 292 UA 1009, 7.5 upH, else bland; uOsms 218, Donna 38 sOsms 268 10/28/23 08:07 10/28/23 08:07 Diagnostic Findings CTA head/neck no acute process; atherosclerosis seen CXR no vascular congestion/plm edema or effusion (my read)
--- NOTE | 2023-10-28 08:42 | Electrocardiogram Report ---
Test Reason : Blood Pressure : / mmHG Vent. Rate : 085 BPM Atrial Rate : 085 BPM P-R Int : 208 ms QRS Dur : 094 ms QT Int : 448 ms P-R-T Axes : 000 -45 122 degrees QTc Int : 533 ms Sinus rhythm with Premature atrial complexes with Aberrant conduction Left axis deviation Left ventricular hypertrophy with repolarization abnormality Prolonged QT Abnormal ECG When compared with ECG of 27-OCT-2023 12:07, Sinus rhythm has replaced Atrial fibrillation HR has decreased by 19 bpm Confirmed by Gregory Brizuela ([id number]) on 10/28/2023 8:42:07 AM Referred By: REFERRED SELF Confirmed By:Gregory Brizuela
[2023-10-28 08:49] LABS: Hematocrit (blood only) 36.3 % (37.0-47.0); Hemoglobin 12.3 g/dl (12.0-16.0); Mean Corpuscular Hemoglobin 25.7 pg (25.0-34.0); Mean Corpuscular Hgb Conc 33.9 g/dL (32.0-36.0); Mean Corpuscular Volume 75.8 fL (80.0-100.0); Mean Platelet Volume 10.7 fL (9.4-12.4); Platelet Count 178 K/uL (130-400); Red Blood Count 4.79 M/uL (4.20-5.40); White Blood Count 8.69 K/ul (4.8-10.8)
[2023-10-28 08:57] LABS: Albumin Globulin Ratio 1.2 (0.9-2); Albumin Level 3.7 gm/dl (3.4-5.0); BUN Creatinine Ratio 13.6 (10-20); Bilirubin,Total 0.6 mg/dl (0.2-1.0); Calcium 9.3 mg/dl (8.6-10.3); Creatinine Clr Calc Pharmacy 37.4 ml/min; Est GFR (African American) 49.3 ml/min; Est GFR (Non-African American) 42.5 ml/min; Magnesium 2.3 mg/dl (1.7-2.4); Potassium 4.2 mmol/L (3.5-5.1); Total Protein 6.7 gm/dl (6.0-8.3)
[2023-10-28] MEDS: FLUTICASONE PROPIONATE NA SPR 16 GM BTL NAE SCH (10:38)
[2023-10-28] MEDS: ATORVASTATIN 40 MG TAB PO SCH (10:39)
[2023-10-28] MEDS: CLOPIDOGREL BISULFATE 75 MG TAB PO SCH (10:39)
[2023-10-28] MEDS: MAGNESIUM OXIDE 400 MG TAB PO SCH (10:39)
[2023-10-28] MEDS: CEROVITE ADV FORMULA TAB PO SCH (10:39)
[2023-10-28] MEDS: LANTUS PER UNIT CHARGE SC SCH (10:45)
[2023-10-28] MEDS: AMMONIUM LACTATE 12% LOTION 225 GM BTL EXT SCH (10:49)
--- NOTE | 2023-10-28 13:24 | Electrocardiogram Report ---
Test Reason : Blood Pressure : / mmHG Vent. Rate : 090 BPM Atrial Rate : 090 BPM P-R Int : 210 ms QRS Dur : 092 ms QT Int : 440 ms P-R-T Axes : 088 -51 099 degrees QTc Int : 538 ms Sinus rhythm with 1st degree A-V block with Premature atrial complexes Left anterior fascicular block Pulmonary disease pattern Diffuse Minor Nonspecific ST and T wave abnormality Prolonged QT Abnormal ECG When compared with ECG of 27-OCT-2023 16:56, No significant change Confirmed by Gregory Brizuela ([id number]) on 10/28/2023 1:24:23 PM Referred By: REFERRED SELF Confirmed By:Gregory Brizuela
[2023-10-28] MEDS: LANTUS PER UNIT CHARGE SC ONE (13:29)
--- NOTE | 2023-10-28 13:37 | Pharmacy Report ---
Pharmacy Glycemic Short Note 2 - Date of Service October 28, 2023 - Glycemic Short BSG Results (Last 24 hours): 10/27/23 10/27/23 10/27/23 15:45 16:43 17:26 Glucose Cancelled Cancelled POC Glucose 309 H* 10/27/23 10/27/23 10/27/23 18:47 18:48 20:14 Glucose 225 H POC Glucose 223 H 233 H 10/27/23 10/27/23 10/28/23 21:34 23:16 00:45 Glucose 311 H* 225 H POC Glucose 243 H 10/28/23 10/28/23 10/28/23 03:28 07:09 08:07 Glucose 250 H POC Glucose 232 H 226 H 10/28/23 10/28/23 10:42 13:09 Glucose POC Glucose 283 H 359 H* OUTPATIENT ANTIDIABETIC REGIMEN: * Tresiba 30 units hs, novolog, metformin 1000 mg bidm, ozempic ASSESSMENT: * 62 year old, type 2 diabetic (7.5% a1c 09/15) presenting with dizziness/hyperglycemia/hyponatremia. Pharmacy consulted for glycemic management. Confirmed with patient Tresiba dose at home as this appears to be a recent significant reduction in dosing compared to prior admissions. Patient received total of 59 units of insulin yesterday, of which 40 units were basal insulin. * Fasting BSG elevated at 250 mg/dL - patient received ~12 units correctional insulin overnight. Will increase to 55 units basal this AM. Lunch time BSGs trending upward despite tightening of novolog, will tighten further at lunch. * RN taking blood sugar after eating (359 mg/dL) due to patient falling asleep while eating/very lethargic. I asked nurse to use BSG prior to eating and not this blood sugar to assess insulin needs with novolog. Also recommended she reach out to provider if this is something that has been ongoing due to concerns for possible aspiration. * Will continue closer monitoring with overnight checks - Recommended RN reach out to pharmacy if checking BSGs d/t lethargic as likely we will hold insulin if after eating. PLAN FOR INPATIENT GLYCEMIC CONTROL: * Hold outpatient oral diabetes medications * Basal insulin * Lantus 55 units daily * Bolus insulin * NovoLog per scale ACHS or Q6hrs while NPO * Goal Range: Low 110 mg/dL - High 140 mg/dL * Correction Factor: 10 mg/dL/unit * Nutritional / Prandial insulin per carb ratio of 1 unit per 4 grams CHO consumed
[2023-10-28] MEDS: ACETAMINOPHEN 325 MG TAB PO PRN (13:46)
--- NOTE | 2023-10-28 16:59 | Hospitalist Progress Note ---
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 Patient has a complicated recent course this started in May 2023 when she was seen at [facility] for melena and abdominal pain and found to have possible pneumoperitoneum and was transferred [place] [facility] where she was admitted from 06/06-06/22. While there, underwent 2 ex lap surgeries without evidence of perforation. Hospital course at [facility] was complicated by C. difficile infection, COVID-19 infection and splenic infarcts (ALMA from 06/21 without intracardiac mass, vegetation or thrombus). Discharged to SNF on 06/22/23. Was then admitted from SNF to [facility] from 06/25-06/29 for melena and coffee ground emesis. During admission, underwent transfusion of 4u PRBCs and endoscopy was performed on 06/27 with multiple ulcers noted in the transverse/left/sigmoid colon compatible with ischemia and were biopsied. Hemoglobin remained stable following blood transfusion and no other intervention was done. Was discharged to a SNF and then returned home about a month ago, where she lives alone. Vertigo H/o benign paroxysmal positional vertigo due to bilateral vestibular disorder Improved in ED after meclizine, continue home dose CT head, head/neck CTA without acute findings Resp biofire negative Seems to be improving Acute hyponatremia Initial Na 121 (125-126 when correcting for hyperglycemia) Serum and urine osms consistent with hypotonic hypovolemic hyponatremia Started on NSS 125ml /hr Case discussed with Dr. Baumann - nephrology Nephrology consulted and following closely Monitor BMP closely, replete K Acute hyperglycemia in setting of DM II BSG initially 380 -> 225 with SQ insulin Questionable compliance with insulin in the past Appreciate glycemic pharmacy recs Hold home agents Glycemic consult placed BSG AC HS Acute hypokalemia Initial K 2.3 - recently resumed lactulose for longstanding history of LEYVA cirrhosis; holding until lytes normalize replete and monitor Metabolic alkalosis ABG with pH 7.6, CO2 40 in setting of recently starting lactulose, ? worsening renal disease, ? recent start of liver supplement (obtained on internet), recent GI pathology as detailed above Appreciate nephrology recs Cirrhosis 2/2 LEYVA Diuretics held for now, appears dry clinically. Will need GI follow up given recent hospitalizations Atrial fibrillation A fib with RVR noted during May admission here that spontaneously converted back to sinus with frequent atrial ectopy Of note, did have a ziopatch monitor ordered by cardiology on 10/15/23 to further assess underlying a fib (seen during previous admission but variable) given recent splenic infarct (ALMA from 06/21 [place] [facility] without intracardiac mass, vegetation or thrombus) Initial EKG with rate controlled A fib, repeat EKG while still in ED with sinus rhythm with aberrant conduction. Continue to monitor on tele, continue Lopressor, consider cardiology consult if recurs HFpEF s/p TAVR Recent 2D echo with EF 65% CXR with cardiomegaly without acute process Monitor volume status closely CAD S/P stent Chronic, stable. Continue plavix, statin, beta nayeli CKD III Initial Cr 1.25 -> 1.08 closer to baseline after IV fluids. Continue to monitor closely Nephrology following H/O colon cancer H/O breast cancer S/P bilateral mastectomy, radiation Mood disorder H/O schizoaffective disorder, bipolar type Home medications recently discontinued during hospitalizations given polypharmacy except for gabapentin TID, trazodone HS Recent epistaxis Reported nosebleed at home before dizziness started; self- packed with rolled tissue paper Started on Rocephin for empiric coverage , pcn allergy on record DANYELLE CPAP at bedtime DVT Ppx: SQ heparin Code status: FULL PCP: Dr. Rausch Dispo: PCU Admission and Anticipated Discharge Date Admission Date: October 27, 2023 Subjective Pt seen in follow up of dizziness, metab.alkalosis, hyponatremia Currently sitting up in chair in NAD, she is awake alert and answering appropriately. says she feels much better today. Denies any fever, chills , chest pain, shortness of breath or abdominal pain. Pt's family present at the bedside and updated. Review of Systems Review of Systems: All systems reviewed & are unremarkable except as noted in Subjective Physical Exam Physical Exam: General Appearance: WD/WN, frail F (chronically ill appearing) in NAD Head: normocephalic, atraumatic Eyes: normal inspection, PERRL, conjunctivae normal, anicteric sclerae ENT: external ear and nose normal Neck: normal visual inspection Respiratory: normal respiratory effort, lungs clear to auscultation, no wheeze, rales, rhonchi. Cardiovascular: rrr, no murmur, normal peripheral pulses, no BLE edema. Vessels: no JVD Chest: normal inspection of chest Abdomen/GI: normal bowel sounds, soft, nontender Extremities/Musculoskeletal: moves extremities Neurologic: PERRL, EOMI, no face palsy, no dysarthria, moves extremities Psychiatric: A+Ox3, euthymic affect Skin: no rashes, normal color, warm/dry Results & Data Results & Data Vital Signs (Past 12 Hours) Vital Signs Temp Pulse Pulse Resp BP Pulse Ox O2 Del Method 10/28/23 16:06 36.5 C 75 18 131/79 96 Room Air 10/28/23 15:00 82 10/28/23 11:52 89 16 113/71 95 Room Air 10/28/23 08:30 94 H 10/28/23 08:30 Room Air 10/28/23 08:07 36.5 C 95 H 18 104/71 92 Room Air 10/28/23 05:32 94 H Laboratory Results 10/28/23 10/28/23 10/28/23 Range/Units 16:25 13:09 10:42 WBC (4.8-10.8) K/ul RBC (4.20-5.40) M/uL Hgb (12.0-16.0) g/dl Hct (37.0-47.0) % MCV (80.0-100.0) fL MCH (25.0-34.0) pg MCHC (32.0-36.0) g/dL RDW Std Deviation (36.4-46.3) fL RDW Coeff of Valerio (11.5-14.5) % Plt Count (130-400) K/uL MPV (9.4-12.4) fL Sodium Potassium Chloride Carbon Dioxide Anion Gap BUN Creatinine Est Cr Clr Drug Dosing Est GFR ( Amer) Est GFR (Non-Af Amer) BUN/Creatinine Ratio Glucose POC Glucose 249 H 359 H* 283 H (70-99) mg/dl Calcium Phosphorus (2.5-4.9) mg/dl Magnesium (1.7-2.4) mg/dl Total Bilirubin (0.2-1.0) mg/dl AST (13-39) U/L ALT (7-52) U/L Alkaline Phosphatase (34-104) U/L Total Protein (6.0-8.3) gm/dl Albumin (3.4-5.0) gm/dl Globulin (2.5-4.0) gm/dl Albumin/Globulin Ratio (0.9-2) Adenovirus (PCR) (NotDetected) B. pertussis DNA (PCR) (NotDetected) B.parapertussis DNA PCR (NotDetected) C. pneumoniae DNA (PCR) (NotDetected) Coronavirus OC43 (PCR) (NotDetected) Coronavirus HKU1 (PCR) (NotDetected) Coronavirus 229E (PCR) (NotDetected) SARS-CoV-2 (PCR) (NotDetected) Coronavirus NL63 (PCR) (NotDetected) Hepatitis C Ab (EIA) Human Metapneumovir PCR (NotDetected) Influenza Type A (PCR) (NotDetected) Influenza Type B (PCR) (NotDetected) M. pneumoniae (PCR) (NotDetected) Parainfluenza 1 (PCR) (NotDetected) Parainfluenza 2 (PCR) (NotDetected) Parainfluenza 3 (PCR) (NotDetected) Parainfluenza 4 (PCR) (NotDetected) RSV (PCR) (NotDetected) Entero/Rhino (PCR) (NotDetected) 10/28/23 10/28/23 10/28/23 Range/Units 08:07 07:09 03:28 WBC 8.69 (4.8-10.8) K/ul RBC 4.79 (4.20-5.40) M/uL Hgb 12.3 (12.0-16.0) g/dl Hct 36.3 L (37.0-47.0) % MCV 75.8 L D (80.0-100.0) fL MCH 25.7 (25.0-34.0) pg MCHC 33.9 (32.0-36.0) g/dL RDW Std Deviation 43.0 (36.4-46.3) fL RDW Coeff of Valerio 16.0 H (11.5-14.5) % Plt Count 178 (130-400) K/uL MPV 10.7 (9.4-12.4) fL Sodium 129 L Potassium 4.2 D Chloride 86 L Carbon Dioxide 38 H Anion Gap 5 BUN 18 Creatinine 1.32 H Est Cr Clr Drug Dosing 37.4 Est GFR ( Amer) 49.3 Est GFR (Non-Af Amer) 42.5 BUN/Creatinine Ratio 13.6 Glucose 250 H POC Glucose 226 H 232 H (70-99) mg/dl Calcium 9.3 Phosphorus 3.0 (2.5-4.9) mg/dl Magnesium 2.3 (1.7-2.4) mg/dl Total Bilirubin 0.6 D (0.2-1.0) mg/dl AST 12 L (13-39) U/L ALT 7 (7-52) U/L Alkaline Phosphatase 76 (34-104) U/L Total Protein 6.7 (6.0-8.3) gm/dl Albumin 3.7 (3.4-5.0) gm/dl Globulin 3.0 (2.5-4.0) gm/dl Albumin/Globulin Ratio 1.2 (0.9-2) Adenovirus (PCR) (NotDetected) B. pertussis DNA (PCR) (NotDetected) B.parapertussis DNA PCR (NotDetected) C. pneumoniae DNA (PCR) (NotDetected) Coronavirus OC43 (PCR) (NotDetected) Coronavirus HKU1 (PCR) (NotDetected) Coronavirus 229E (PCR) (NotDetected) SARS-CoV-2 (PCR) (NotDetected) Coronavirus NL63 (PCR) (NotDetected) Hepatitis C Ab (EIA) Pending Human Metapneumovir PCR (NotDetected) Influenza Type A (PCR) (NotDetected) Influenza Type B (PCR) (NotDetected) M. pneumoniae (PCR) (NotDetected) Parainfluenza 1 (PCR) (NotDetected) Parainfluenza 2 (PCR) (NotDetected) Parainfluenza 3 (PCR) (NotDetected) Parainfluenza 4 (PCR) (NotDetected) RSV (PCR) (NotDetected) Entero/Rhino (PCR) (NotDetected) 10/28/23 10/27/23 10/27/23 Range/Units 00:45 23:16 21:34 WBC (4.8-10.8) K/ul RBC (4.20-5.40) M/uL Hgb (12.0-16.0) g/dl Hct (37.0-47.0) % MCV (80.0-100.0) fL MCH (25.0-34.0) pg MCHC (32.0-36.0) g/dL RDW Std Deviation (36.4-46.3) fL RDW Coeff of Valerio (11.5-14.5) % Plt Count (130-400) K/uL MPV (9.4-12.4) fL Sodium 128 L 125 L Potassium 3.1 L 2.9 L Chloride 80 L 77 L Carbon Dioxide 42 H* 39 H Anion Gap 6 9 BUN 18 18 Creatinine 1.42 H 1.46 H D Est Cr Clr Drug Dosing 34.4 33.5 Est GFR ( Amer) 45.1 43.6 Est GFR (Non-Af Amer) 38.9 37.6 BUN/Creatinine Ratio 12.7 12.3 Glucose 225 H 311 H* POC Glucose 243 H (70-99) mg/dl Calcium 8.8 8.7 Phosphorus (2.5-4.9) mg/dl Magnesium (1.7-2.4) mg/dl Total Bilirubin (0.2-1.0) mg/dl AST (13-39) U/L ALT (7-52) U/L Alkaline Phosphatase (34-104) U/L Total Protein (6.0-8.3) gm/dl Albumin (3.4-5.0) gm/dl Globulin (2.5-4.0) gm/dl Albumin/Globulin Ratio (0.9-2) Adenovirus (PCR) (NotDetected) B. pertussis DNA (PCR) (NotDetected) B.parapertussis DNA PCR (NotDetected) C. pneumoniae DNA (PCR) (NotDetected) Coronavirus OC43 (PCR) (NotDetected) Coronavirus HKU1 (PCR) (NotDetected) Coronavirus 229E (PCR) (NotDetected) SARS-CoV-2 (PCR) (NotDetected) Coronavirus NL63 (PCR) (NotDetected) Hepatitis C Ab (EIA) Human Metapneumovir PCR (NotDetected) Influenza Type A (PCR) (NotDetected) Influenza Type B (PCR) (NotDetected) M. pneumoniae (PCR) (NotDetected) Parainfluenza 1 (PCR) (NotDetected) Parainfluenza 2 (PCR) (NotDetected) Parainfluenza 3 (PCR) (NotDetected) Parainfluenza 4 (PCR) (NotDetected) RSV (PCR) (NotDetected) Entero/Rhino (PCR) (NotDetected) 10/27/23 10/27/23 10/27/23 Range/Units 20:14 18:48 18:47 WBC (4.8-10.8) K/ul RBC (4.20-5.40) M/uL Hgb (12.0-16.0) g/dl Hct (37.0-47.0) % MCV (80.0-100.0) fL MCH (25.0-34.0) pg MCHC (32.0-36.0) g/dL RDW Std Deviation (36.4-46.3) fL RDW Coeff of Valerio (11.5-14.5) % Plt Count (130-400) K/uL MPV (9.4-12.4) fL Sodium 124 L Potassium 3.3 L D Chloride 77 L Carbon Dioxide 40 H Anion Gap 7 BUN 17 Creatinine 1.08 Est Cr Clr Drug Dosing 45.3 Est GFR ( Amer) 62.8 Est GFR (Non-Af Amer) 54.2 BUN/Creatinine Ratio 15.7 Glucose 225 H POC Glucose 233 H 223 H (70-99) mg/dl Calcium 8.8 Phosphorus (2.5-4.9) mg/dl Magnesium (1.7-2.4) mg/dl Total Bilirubin (0.2-1.0) mg/dl AST (13-39) U/L ALT (7-52) U/L Alkaline Phosphatase (34-104) U/L Total Protein (6.0-8.3) gm/dl Albumin (3.4-5.0) gm/dl Globulin (2.5-4.0) gm/dl Albumin/Globulin Ratio (0.9-2) Adenovirus (PCR) (NotDetected) B. pertussis DNA (PCR) (NotDetected) B.parapertussis DNA PCR (NotDetected) C. pneumoniae DNA (PCR) (NotDetected) Coronavirus OC43 (PCR) (NotDetected) Coronavirus HKU1 (PCR) (NotDetected) Coronavirus 229E (PCR) (NotDetected) SARS-CoV-2 (PCR) (NotDetected) Coronavirus NL63 (PCR) (NotDetected) Hepatitis C Ab (EIA) Human Metapneumovir PCR (NotDetected) Influenza Type A (PCR) (NotDetected) Influenza Type B (PCR) (NotDetected) M. pneumoniae (PCR) (NotDetected) Parainfluenza 1 (PCR) (NotDetected) Parainfluenza 2 (PCR) (NotDetected) Parainfluenza 3 (PCR) (NotDetected) Parainfluenza 4 (PCR) (NotDetected) RSV (PCR) (NotDetected) Entero/Rhino (PCR) (NotDetected) 10/27/23 10/27/23 10/27/23 Range/Units 17:26 16:45 16:43 WBC (4.8-10.8) K/ul RBC (4.20-5.40) M/uL Hgb (12.0-16.0) g/dl Hct (37.0-47.0) % MCV (80.0-100.0) fL MCH (25.0-34.0) pg MCHC (32.0-36.0) g/dL RDW Std Deviation (36.4-46.3) fL RDW Coeff of Valerio (11.5-14.5) % Plt Count (130-400) K/uL MPV (9.4-12.4) fL Sodium Cancelled Cancelled Potassium Cancelled Cancelled Chloride Cancelled Cancelled Carbon Dioxide Cancelled Cancelled Anion Gap Cancelled Cancelled BUN Cancelled Cancelled Creatinine Cancelled Cancelled Est Cr Clr Drug Dosing Cancelled Cancelled Est GFR ( Amer) Cancelled Cancelled Est GFR (Non-Af Amer) Cancelled Cancelled BUN/Creatinine Ratio Cancelled Cancelled Glucose Cancelled Cancelled POC Glucose (70-99) mg/dl Calcium Cancelled Cancelled Phosphorus (2.5-4.9) mg/dl Magnesium (1.7-2.4) mg/dl Total Bilirubin (0.2-1.0) mg/dl AST (13-39) U/L ALT (7-52) U/L Alkaline Phosphatase (34-104) U/L Total Protein (6.0-8.3) gm/dl Albumin (3.4-5.0) gm/dl Globulin (2.5-4.0) gm/dl Albumin/Globulin Ratio (0.9-2) Adenovirus (PCR) Not Detected (NotDetected) B. pertussis DNA (PCR) Not Detected (NotDetected) B.parapertussis DNA PCR Not Detected (NotDetected) C. pneumoniae DNA (PCR) Not Detected (NotDetected) Coronavirus OC43 (PCR) Not Detected (NotDetected) Coronavirus HKU1 (PCR) Not Detected (NotDetected) Coronavirus 229E (PCR) Not Detected (NotDetected) SARS-CoV-2 (PCR) Not Detected (NotDetected) Coronavirus NL63 (PCR) Not Detected (NotDetected) Hepatitis C Ab (EIA) Human Metapneumovir PCR Not Detected (NotDetected) Influenza Type A (PCR) Not Detected (NotDetected) Influenza Type B (PCR) Not Detected (NotDetected) M. pneumoniae (PCR) Not Detected (NotDetected) Parainfluenza 1 (PCR) Not Detected (NotDetected) Parainfluenza 2 (PCR) Not Detected (NotDetected) Parainfluenza 3 (PCR) Not Detected (NotDetected) Parainfluenza 4 (PCR) Not Detected (NotDetected) RSV (PCR) Not Detected (NotDetected) Entero/Rhino (PCR) Not Detected (NotDetected) Medications Administered Current Inpatient Medications Acetaminophen (Acetaminophen 325 Mg Tab) 650 mg PO Q4H PRN PRN Reason: Pain or Fever Stop: 11/26/23 19:22 Last Admin: 10/28/23 13:46 Dose: 650 mg Atorvastatin Calcium (Atorvastatin 40 Mg Tab) 40 mg PO DAILY [facility]GENY Stop: 11/27/23 08:59 Last Admin: 10/28/23 10:39 Dose: 40 mg Clopidogrel Bisulfate (Clopidogrel Bisulfate 75 Mg Tab) 75 mg PO DAILY [facility]GEN[facility] Stop: 11/27/23 08:59 Last Admin: 10/28/23 10:39 Dose: 75 mg Dextrose (Dextrose 50% 50 Ml Syringe) 25 - 50 ml IV UD PRN; Protocol PRN Reason: Hypoglycemia Protocol Stop: 11/26/23 15:14 Fluticasone Propionate (Fluticasone Propionate Na Spr 16 Gm Btl) 2 sprays ASH DAILY [facility] Stop: 11/27/23 08:59 Last Admin: 10/28/23 10:38 Dose: 2 sprays Gabapentin (Gabapentin 100 Mg Cap) 100 mg PO TID [facility]GENY Stop: 11/26/23 20:59 Last Admin: 10/28/23 15:37 Dose: 100 mg Glucagon (Glucagon For Inj 1 Mg Vial) 1 mg IM UD PRN; Protocol PRN Reason: Hypoglycemia Protocol Stop: 11/26/23 15:14 Glucose (Glucose 40% Gel 15 Gm Tube) 15 - 30 gm PO UD PRN; Protocol PRN Reason: Hypoglycemia Protocol Stop: 11/26/23 15:14 Glucose (Glucose 10 Tab/Tube) 4 - 8 tab PO UD PRN; Protocol PRN Reason: Hypoglycemia Protocol Stop: 11/26/23 15:14 Ceftriaxone Sodium 2,000 mg/ (Dextrose) 50 mls @ 100 mls/hr IV Q24H EVGENY; Protocol Stop: 11/06/23 17:29 Last Infusion: 10/27/23 18:38 Dose: Infused Insulin Aspart (Insulin Aspart Per Unit Charge) 0 units SC ACHS [facility] Stop: 11/26/23 15:14 Last Admin: 10/28/23 13:28 Dose: 27 units Insulin Aspart (Insulin Aspart Per Unit Charge) 0 units SC 0000,[id number] [facility] Stop: 11/27/23 00:00 Last Admin: 10/28/23 03:33 Dose: 5 units Insulin Glargine (Lantus Per Unit Charge) 55 units SC DAILY [facility] Stop: 11/28/23 08:59 Lactic Acid (Ammonium Lactate 12% Lotion 225 Gm Btl) 1 gm EXT DAILY [facility] Stop: 11/27/23 08:59 Last Admin: 10/28/23 10:49 Dose: 1 gm Levothyroxine Sodium (Levothyroxine Sodium 75 Mcg Tablet) [facility] Stop: 11/27/23 06:29 Last Admin: 10/28/23 05:41 Dose: 75 mcg Magnesium Oxide (Magnesium Oxide 400 Mg Tab) 400 mg PO DAILY [facility] Stop: 11/27/23 08:59 Last Admin: 10/28/23 10:39 Dose: 400 mg Meclizine HCl (Meclizine Hcl 25 Mg Tab) 50 mg PO BID [facility] Stop: 11/26/23 20:59 Last Admin: 10/28/23 10:38 Dose: 50 mg Melatonin (Melatonin 3 Mg Tab) 9 mg PO HS [facility] Stop: 11/26/23 20:59 Last Admin: 10/27/23 20:42 Dose: 9 mg Metoprolol Tartrate (Metoprolol Tartrate 25 Mg Tab) 25 mg PO BID [facility] Stop: 11/26/23 20:59 Last Admin: 10/28/23 10:39 Dose: 25 mg Miscellaneous (Carbohydrates For Hypoglycemia ) 15 - 30 gm PO UD PRN PRN Reason: Hypoglycemia Treatment Stop: 11/26/23 15:14 Miscellaneous Information (Pharmacy Glycemic Mgmt Consult) 1 each N/A UD PRN; Protocol PRN Reason: Consult Stop: 11/26/23 14:51 Multivitamins/Minerals (Cerovite Adv Formula Tab) 1 tab PO DAILY [facility] Stop: 11/27/23 08:59 Last Admin: 10/28/23 10:39 Dose: 1 tab Ondansetron HCl (Ondansetron Inj 2 Mg/Ml 2 Ml Vial) 4 mg IV Q6H PRN PRN Reason: Nausea Stop: 11/26/23 19:22 Potassium Chloride (Potassium Chloride 10 Meq Tabcr) 10 meq PO BID [facility] Stop: 11/26/23 20:59 Last Admin: 10/28/23 10:40 Dose: 10 meq Trazodone HCl (Trazodone Hcl 100 Mg Tab) 100 mg PO HS [facility] Stop: 11/26/23 20:59 Last Admin: 10/27/23 20:42 Dose: 100 mg
[2023-10-28 17:45] LABS: BUN Creatinine Ratio 13.8 (10-20); Calcium 9.1 mg/dl (8.6-10.3); Creatinine Clr Calc Pharmacy 40.1 ml/min; Est GFR (African American) 53.7 ml/min; Est GFR (Non-African American) 46.3 ml/min; Potassium 3.9 mmol/L (3.5-5.1)
[2023-10-28] MEDS: POTASSIUM CHLORIDE 20 MEQ in SODIUM CHLORIDE 0.9% 500 ML IV SCH (19:57)
[2023-10-29 07:13] LABS: Hematocrit (blood only) 35.7 % (37.0-47.0); Hemoglobin 11.6 g/dl (12.0-16.0); Mean Corpuscular Hemoglobin 25.3 pg (25.0-34.0); Mean Corpuscular Hgb Conc 32.5 g/dL (32.0-36.0); Mean Corpuscular Volume 77.8 fL (80.0-100.0); Mean Platelet Volume 10.6 fL (9.4-12.4); Platelet Count 175 K/uL (130-400); RDW Coefficient of Variation 16.2 % (11.5-14.5); RDW Standard Deviation 45.1 fL (36.4-46.3); Red Blood Count 4.59 M/uL (4.20-5.40)
[2023-10-29 07:32] LABS: BUN Creatinine Ratio 13.3 (10-20); Calcium 9.7 mg/dl (8.6-10.3); Est GFR (Non-African American) 56.1 ml/min; Magnesium 2.2 mg/dl (1.7-2.4); Phosphorus 3.3 mg/dl (2.5-4.9); Potassium 3.5 mmol/L (3.5-5.1)
[2023-10-29] MEDS: LANTUS PER UNIT CHARGE SC SCH ×2 (08:30→20:19)
--- NOTE | 2023-10-29 10:20 | Nephrology Progress Note ---
Date of Service October 29, 2023 Assessment & Plan Admission and Anticipated Discharge Date Admission Date: October 27, 2023 Subjective Assessment & Plan (1) Electrolyte and fluid disorder: improving hyponatremia --Hypovolemic Hyponatremia with Hypokalemia and Met Alkalsosis--Sig worsened eula by metolazone. Good response to IVF. Going forward she should be managed with Loop Diuretics alone. No metolazone--Too many Electrolyte and Acid/base issues to manage. her torsemide dose was super low anyway at 10 daily. lot of room to go up. No need of Iv fluid today but still hold Diuretics. Will only restart torsemide at higher dose at discharge. (2) Acute renal failure: recovered and now back to normal baseline (3) Metabolic alkalosis: pH 7.63 on ABG on presentation. appears to be severe contraction; low threshold to repeat VBG if issues but no indication currently S--No new issues. Denies SOB, N, V, CP. making urine ? amount. Labs better Physical Exam Constitutional: well developed, well nourished, cooperative no acute distress ENMT: MM moist. Respiratory: normal respiratory effort Auscultation: + diminished lung sounds Cardiovascular: RRR, no murmur, no edema Gastrointestinal (Abdomen): Inspection/Auscultation: normal bowel sounds Percussion/Palpation: abdomen soft; abdomen nontender Musculoskeletal: Extremities: No edema Skin: no rashes, warm and dry Neurologic: Normal Speech. Psychiatric: Orientation: alert and oriented x 3 Results & Data Vital Signs (Past 12 Hours) Vital Signs Temp Pulse Pulse Resp BP Pulse Ox O2 Del Method 10/29/23 09:39 86 16 117/69 92 Room Air 10/29/23 07:18 36.5 C 80 16 96/63 L 97 Room Air 10/29/23 03:35 36.4 C L 80 18 131/80 94 Room Air 10/28/23 23:00 80
--- NOTE | 2023-10-29 11:15 | Hospitalist Progress Note ---
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 Patient has a complicated recent course this started in May 2023 when she was seen at [facility] for melena and abdominal pain and found to have possible pneumoperitoneum and was transferred to [facility], where she was admitted from 06/06-06/22. While there, underwent 2 ex lap surgeries without evidence of perforation. Hospital course at [facility] was complicated by C. difficile infection, COVID-19 infection and splenic infarcts (ALMA from 06/21 without intracardiac mass, vegetation or thrombus). Discharged to SNF on 06/22/23. Was then admitted from SNF to [facility] from 06/25-06/29 for melena and coffee ground emesis. During admission, underwent transfusion of 4u PRBCs and endoscopy was performed on 06/27 with multiple ulcers noted in the transverse/left/sigmoid colon compatible with ischemia and were biopsied. Hemoglobin remained stable following blood transfusion and no other intervention was done. Was discharged to a SNF and then returned home about a month ago, where she lives alone. Vertigo H/o benign paroxysmal positional vertigo due to bilateral vestibular disorder Improved in ED after meclizine, continue home dose CT head, head/neck CTA without acute findings Resp biofire negative Seems to be improving Acute hyponatremia Initial Na 121 (125-126 when correcting for hyperglycemia) Serum and urine osms consistent with hypotonic hypovolemic hyponatremia Started on NSS 125ml /hr initially Nephrology consulted and following closely Current Na 131 Monitor BMP closely, replete K Per nephrology - no metolazone and will only be discharged on higher dose of torsemide Acute hyperglycemia in setting of DM II BSG initially 380 -> 225 with SQ insulin Questionable compliance with insulin in the past Appreciate glycemic pharmacy recs Hold home agents Glycemic consult placed BSG AC HS Acute hypokalemia Initial K 2.3 - recently resumed lactulose for longstanding history of LEYVA cirrhosis; holding until lytes normalize replete and monitor Metabolic alkalosis - seems as severe contraction ABG with pH 7.6, CO2 40 in setting of recently starting lactulose, ? worsening renal disease, ? recent start of liver supplement (obtained on internet), recent GI pathology as detailed above Appreciate nephrology recs Cirrhosis 2/2 LEYVA Diuretics held for now, appears dry clinically. Will need GI follow up given recent hospitalizations Atrial fibrillation A fib with RVR noted during May admission here that spontaneously converted back to sinus with frequent atrial ectopy Of note, did have a ziopatch monitor ordered by cardiology on 10/15/23 to further assess underlying a fib (seen during previous admission but variable) given recent splenic infarct (ALMA from 06/21 at [facility] without intracardiac mass, vegetation or thrombus) Initial EKG with rate controlled A fib, repeat EKG while still in ED with sinus rhythm with aberrant conduction. Continue to monitor on tele, continue Lopressor, consider cardiology consult if recurs HFpEF s/p TAVR Recent 2D echo with EF 65% CXR with cardiomegaly without acute process Monitor volume status closely CAD S/P stent Chronic, stable. Continue plavix, statin, beta nayeli CKD III Initial Cr 1.25 -> 1.08 closer to baseline after IV fluids. Continue to monitor closely Nephrology following H/O colon cancer H/O breast cancer S/P bilateral mastectomy, radiation Mood disorder H/O schizoaffective disorder, bipolar type Home medications recently discontinued during hospitalizations given polypharmacy except for gabapentin TID, trazodone HS Recent epistaxis Reported nosebleed at home before dizziness started; self- packed with rolled tissue paper Started on Rocephin for empiric coverage , pcn allergy on record DANYELLE CPAP at bedtime DVT Ppx: SQ heparin Code status: FULL PCP: Dr. Rausch Dispo: PCU Admission and Anticipated Discharge Date Admission Date: October 27, 2023 Subjective Pt seen in follow up of dizziness, metab.alkalosis, hyponatremia Currently sitting up in chair in NAD, she is awake alert and answering appropriately. says she feels better overall Denies any fever, chills , chest pain, shortness of breath or abdominal pain. Dizziness improving. Review of Systems Review of Systems: All systems reviewed & are unremarkable except as noted in Subjective Physical Exam Physical Exam: General Appearance: WD/WN, frail F (chronically ill appearing) in [facility] Head: normocephalic, atraumatic Eyes: normal inspection, PERRL, conjunctivae normal, anicteric sclerae ENT: external ear and nose normal Neck: normal visual inspection Respiratory: normal respiratory effort, lungs clear to auscultation, no wheeze, rales, rhonchi. Cardiovascular: rrr, no murmur, normal peripheral pulses, no BLE edema. Vessels: no JVD Chest: normal inspection of chest Abdomen/GI: normal bowel sounds, soft, nontender Extremities/Musculoskeletal: moves extremities Neurologic: PERRL, EOMI, no face palsy, no dysarthria, moves extremities Psychiatric: A+Ox3, euthymic affect Skin: no rashes, normal color, warm/dry Results & Data Results & Data Vital Signs (Past 12 Hours) Vital Signs Temp Pulse Resp BP Pulse Ox O2 Del Method 10/29/23 09:39 86 16 117/69 92 Room Air 10/29/23 07:18 36.5 C 80 16 96/63 L 97 Room Air 10/29/23 03:35 36.4 C L 80 18 131/80 94 Room Air Laboratory Results 10/29/23 10/29/23 10/29/23 Range/Units 07:27 06:55 03:49 WBC 8.40 (4.8-10.8) K/ul RBC 4.59 (4.20-5.40) M/uL Hgb 11.6 L (12.0-16.0) g/dl Hct 35.7 L (37.0-47.0) % MCV 77.8 L (80.0-100.0) fL MCH 25.3 (25.0-34.0) pg MCHC 32.5 (32.0-36.0) g/dL RDW Std Deviation 45.1 (36.4-46.3) fL RDW Coeff of Valerio 16.2 H (11.5-14.5) % Plt Count 175 (130-400) K/uL MPV 10.6 (9.4-12.4) fL Sodium 131 L (136-145) mmol/L Potassium 3.5 (3.5-5.1) mmol/L Chloride 91 L (98-107) mmol/L Carbon Dioxide 35 H (21-32) mmol/L Anion Gap 5 (3-11) BUN 14 (6-23) mg/dl Creatinine 1.05 (0.6-1.2) mg/dl Est Cr Clr Drug Dosing 47.0 ml/min Est GFR ( Amer) 65.0 ml/min Est GFR (Non-Af Amer) 56.1 ml/min BUN/Creatinine Ratio 13.3 (10-20) Glucose 158 H (70-99(Fasting)) mg/dl POC Glucose 171 H 191 H (70-99) mg/dl Calcium 9.7 (8.6-10.3) mg/dl Phosphorus 3.3 (2.5-4.9) mg/dl Magnesium 2.2 (1.7-2.4) mg/dl 10/29/23 10/28/23 10/28/23 Range/Units 00:15 20:00 17:11 WBC (4.8-10.8) K/ul RBC (4.20-5.40) M/uL Hgb (12.0-16.0) g/dl Hct (37.0-47.0) % MCV (80.0-100.0) fL MCH (25.0-34.0) pg MCHC (32.0-36.0) g/dL RDW Std Deviation (36.4-46.3) fL RDW Coeff of Valerio (11.5-14.5) % Plt Count (130-400) K/uL MPV (9.4-12.4) fL Sodium 126 L (136-145) mmol/L Potassium 3.9 (3.5-5.1) mmol/L Chloride 87 L (98-107) mmol/L Carbon Dioxide 34 H (21-32) mmol/L Anion Gap 5 (3-11) BUN 17 (6-23) mg/dl Creatinine 1.23 H (0.6-1.2) mg/dl Est Cr Clr Drug Dosing 40.1 ml/min Est GFR ( Amer) 53.7 ml/min Est GFR (Non-Af Amer) 46.3 ml/min BUN/Creatinine Ratio 13.8 (10-20) Glucose 234 H (70-99(Fasting)) mg/dl POC Glucose 179 H 144 H (70-99) mg/dl Calcium 9.1 (8.6-10.3) mg/dl Phosphorus (2.5-4.9) mg/dl Magnesium (1.7-2.4) mg/dl 10/28/23 10/28/23 Range/Units 16:25 13:09 WBC (4.8-10.8) K/ul RBC (4.20-5.40) M/uL Hgb (12.0-16.0) g/dl Hct (37.0-47.0) % MCV (80.0-100.0) fL MCH (25.0-34.0) pg MCHC (32.0-36.0) g/dL RDW Std Deviation (36.4-46.3) fL RDW Coeff of Valerio (11.5-14.5) % Plt Count (130-400) K/uL MPV (9.4-12.4) fL Sodium (136-145) mmol/L Potassium (3.5-5.1) mmol/L Chloride (98-107) mmol/L Carbon Dioxide (21-32) mmol/L Anion Gap (3-11) BUN (6-23) mg/dl Creatinine (0.6-1.2) mg/dl Est Cr Clr Drug Dosing ml/min Est GFR ( Amer) ml/min Est GFR (Non-Af Amer) ml/min BUN/Creatinine Ratio (10-20) Glucose (70-99(Fasting)) mg/dl POC Glucose 249 H 359 H* (70-99) mg/dl Calcium (8.6-10.3) mg/dl Phosphorus (2.5-4.9) mg/dl Magnesium (1.7-2.4) mg/dl Medications Administered Current Inpatient Medications Acetaminophen (Acetaminophen 325 Mg Tab) 650 mg PO Q4H PRN PRN Reason: Pain or Fever Stop: 11/26/23 19:22 Last Admin: 10/28/23 13:46 Dose: 650 mg Atorvastatin Calcium (Atorvastatin 40 Mg Tab) 40 mg PO DAILY [facility] Stop: 11/27/23 08:59 Last Admin: 10/29/23 09:30 Dose: 40 mg Clopidogrel Bisulfate (Clopidogrel Bisulfate 75 Mg Tab) 75 mg PO DAILY [facility] Stop: 11/27/23 08:59 Last Admin: 10/29/23 09:30 Dose: 75 mg Dextrose (Dextrose 50% 50 Ml Syringe) 25 - 50 ml IV UD PRN; Protocol PRN Reason: Hypoglycemia Protocol Stop: 11/26/23 15:14 Fluticasone Propionate (Fluticasone Propionate Na Spr 16 Gm Btl) 2 sprays ASH DAILY [facility] Stop: 11/27/23 08:59 Last Admin: 10/29/23 09:29 Dose: 2 sprays Gabapentin (Gabapentin 100 Mg Cap) 100 mg PO TID [facility] Stop: 11/26/23 20:59 Last Admin: 10/29/23 09:30 Dose: 100 mg Glucagon (Glucagon For Inj 1 Mg Vial) 1 mg IM UD PRN; Protocol PRN Reason: Hypoglycemia Protocol Stop: 11/26/23 15:14 Glucose (Glucose 40% Gel 15 Gm Tube) 15 - 30 gm PO UD PRN; Protocol PRN Reason: Hypoglycemia Protocol Stop: 11/26/23 15:14 Glucose (Glucose 10 Tab/Tube) 4 - 8 tab PO UD PRN; Protocol PRN Reason: Hypoglycemia Protocol Stop: 11/26/23 15:14 Ceftriaxone Sodium 2,000 mg/ (Dextrose) 50 mls @ 100 mls/hr IV Q24H [facility]; Protocol Stop: 11/06/23 17:29 Last Infusion: 10/28/23 18:20 Dose: Infused Insulin Aspart (Insulin Aspart Per Unit Charge) 0 units SC ACHS [facility] Stop: 11/26/23 15:14 Last Admin: 10/29/23 08:30 Dose: 18 units Insulin Aspart (Insulin Aspart Per Unit Charge) 0 units SC [id number] [facility] Stop: 11/27/23 00:00 Last Admin: 10/29/23 03:56 Dose: 7 units Insulin Glargine (Lantus Per Unit Charge) 55 units SC DAILY [facility] Stop: 11/28/23 08:59 Last Admin: 10/29/23 08:30 Dose: 55 units Lactic Acid (Ammonium Lactate 12% Lotion 225 Gm Btl) 1 gm EXT DAILY [facility] Stop: 11/27/23 08:59 Last Admin: 10/29/23 09:29 Dose: 1 gm Levothyroxine Sodium (Levothyroxine Sodium 75 Mcg Tablet) 75 mcg PO DAILYBB [facility] Stop: 11/27/23 06:29 Last Admin: 10/29/23 05:56 Dose: 75 mcg Magnesium Oxide (Magnesium Oxide 400 Mg Tab) 400 mg PO DAILY [facility] Stop: 11/27/23 08:59 Last Admin: 10/29/23 09:30 Dose: 400 mg Meclizine HCl (Meclizine Hcl 25 Mg Tab) 50 mg PO BID [facility] Stop: 11/26/23 20:59 Last Admin: 10/29/23 09:30 Dose: 50 mg Melatonin (Melatonin 3 Mg Tab) 9 mg PO HS [facility] Stop: 11/26/23 20:59 Last Admin: 10/28/23 19:58 Dose: 9 mg Metoprolol Tartrate (Metoprolol Tartrate 25 Mg Tab) 25 mg PO BID [facility] Stop: 11/26/23 20:59 Last Admin: 10/29/23 09:39 Dose: 25 mg Miscellaneous (Carbohydrates For Hypoglycemia ) 15 - 30 gm PO UD PRN PRN Reason: Hypoglycemia Treatment Stop: 11/26/23 15:14 Miscellaneous Information (Pharmacy Glycemic Mgmt Consult) 1 each N/A UD PRN; Protocol PRN Reason: Consult Stop: 11/26/23 14:51 Multivitamins/Minerals (Cerovite Adv Formula Tab) 1 tab PO DAILY [facility] Stop: 11/27/23 08:59 Last Admin: 10/29/23 09:29 Dose: 1 tab Ondansetron HCl (Ondansetron Inj 2 Mg/Ml 2 Ml Vial) 4 mg IV Q6H PRN PRN Reason: Nausea Stop: 11/26/23 19:22 Potassium Chloride (Potassium Chloride 10 Meq Tabcr) 10 meq PO BID [facility] Stop: 11/26/23 20:59 Last Admin: 10/28/23 10:40 Dose: 10 meq Potassium Chloride (Potassium Chloride Crtab 20 Meq Tabcr) 40 meq PO NOW STA Stop: 10/29/23 11:14 Trazodone HCl (Trazodone Hcl 100 Mg Tab) 100 mg PO HS [facility] Stop: 11/26/23 20:59 Last Admin: 10/28/23 19:58 Dose: 100 mg
[2023-10-29] MEDS: POTASSIUM CHLORIDE CRTAB 20 MEQ TABCR PO STA (12:21)
--- NOTE | 2023-10-29 13:48 | Pharmacy Report ---
Pharmacy Glycemic Short Note 2 - Date of Service October 29, 2023 - Glycemic Short BSG Results (Last 24 hours): 10/28/23 10/28/23 10/28/23 16:25 17:11 20:00 Glucose 234 H POC Glucose 249 H 144 H 10/29/23 10/29/23 10/29/23 00:15 03:49 06:55 Glucose 158 H POC Glucose 179 H 191 H 10/29/23 10/29/23 07:27 11:36 Glucose POC Glucose 171 H 259 H OUTPATIENT ANTIDIABETIC REGIMEN: * Tresiba 30 units hs, novolog, metformin 1000 mg bidm, ozempic ASSESSMENT: 10/29 * Jovita received 133 units of insulin yesterday (55 were basal) * Fasting BSG this AM improved, but still above goal range. Will allow for a 15% increase if bedtime BSG is above goal range. * BSGs trend up after lunch and dinner, will tighten carbohydrate ratio. Historically had very tight carbohydrate ratios * She continues on ceftriaxone, no other glycemic stressors noted at this time. 10/28 * 62 year old, type 2 diabetic (7.5% a1c 09/15) presenting with dizziness/hyperglycemia/hyponatremia. Pharmacy consulted for glycemic management. Confirmed with patient Tresiba dose at home as this appears to be a recent significant reduction in dosing compared to prior admissions. Patient received total of 59 units of insulin yesterday, of which 40 units were basal insulin. * Fasting BSG elevated at 250 mg/dL - patient received ~12 units correctional insulin overnight. Will increase to 55 units basal this AM. Lunch time BSGs trending upward despite tightening of novolog, will tighten further at lunch. * RN taking blood sugar after eating (359 mg/dL) due to patient falling asleep while eating/very lethargic. I asked nurse to use BSG prior to eating and not this blood sugar to assess insulin needs with novolog. Also recommended she reach out to provider if this is something that has been ongoing due to concerns for possible aspiration. * Will continue closer monitoring with overnight checks - Recommended RN reach out to pharmacy if checking BSGs d/t lethargic as likely we will hold insulin if after eating. PLAN FOR INPATIENT GLYCEMIC CONTROL: * Hold outpatient oral diabetes medications * Basal insulin * Lantus 55 units daily * Bolus insulin * NovoLog per scale ACHS or Q6hrs while NPO * Goal Range: Low 110 mg/dL - High 140 mg/dL * Correction Factor: 10 mg/dL/unit * Nutritional / Prandial insulin per carb ratio of 1 unit per 2 grams CHO consumed
[2023-10-30 07:26] LABS: Hemoglobin 10.3 g/dl (12.0-16.0); Mean Corpuscular Hemoglobin 25.5 pg (25.0-34.0); Mean Corpuscular Hgb Conc 33.2 g/dL (32.0-36.0); Mean Corpuscular Volume 76.7 fL (80.0-100.0); Mean Platelet Volume 10.8 fL (9.4-12.4); Platelet Count 163 K/uL (130-400); RDW Coefficient of Variation 16.1 % (11.5-14.5); RDW Standard Deviation 44.8 fL (36.4-46.3); Red Blood Count 4.04 M/uL (4.20-5.40); White Blood Count 8.01 K/ul (4.8-10.8)
[2023-10-30 07:50] LABS: BUN Creatinine Ratio 12.2 (10-20); Calcium 9.4 mg/dl (8.6-10.3); Creatinine Clr Calc Pharmacy 40.1 ml/min; Est GFR (African American) 53.7 ml/min; Est GFR (Non-African American) 46.3 ml/min; Magnesium 1.8 mg/dl (1.7-2.4); Phosphorus 4.8 mg/dl (2.5-4.9); Potassium 3.6 mmol/L (3.5-5.1)
--- NOTE | 2023-10-30 09:10 | Hospitalist Progress Note ---
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 Patient has a complicated recent course this started in May 2023 when she was seen at [facility] for melena and abdominal pain and found to have possible pneumoperitoneum and was transferred [place] [facility] was admitted from 06/06-06/22. While there, underwent 2 ex lap surgeries without evidence of perforation. Hospital course at [facility] [place] complicated by C. difficile infection, COVID-19 infection and splenic infarcts (ALMA from 06/21 without intracardiac mass, vegetation or thrombus). Discharged to SNF on 06/22/23. Was then admitted from SNF to [facility] from 06/25-06/29 for melena and coffee ground emesis. During admission, underwent transfusion of 4u PRBCs and endoscopy was performed on 06/27 with multiple ulcers noted in the transverse/left/sigmoid colon compatible with ischemia and were biopsied. Hemoglobin remained stable following blood transfusion and no other intervention was done. Was discharged to a SNF and then returned home about a month ago, where she lives alone. Vertigo H/o benign paroxysmal positional vertigo due to bilateral vestibular disorder Improved in ED after meclizine, continue home dose CT head, head/neck CTA without acute findings Resp biofire negative vertigo is improving Acute hyponatremia Initial Na 121 (125-126 when correcting for hyperglycemia) Serum and urine osms consistent with hypotonic hypovolemic hyponatremia Started on NSS 125ml /hr initially Nephrology consulted and following closely Current Na 131 Monitor BMP closely, replete K Per nephrology - no metolazone and will only be discharged on higher dose of torsemide No IVF or diuretic today. Repeat BMP, VBG tmrw AM Acute hyperglycemia in setting of DM II BSG initially 380 -> 225 with SQ insulin Questionable compliance with insulin in the past Appreciate glycemic pharmacy recs Hold home agents Glycemic consult placed BSG AC HS Acute hypokalemia Initial K 2.3 - recently resumed lactulose for longstanding history of LEYVA cirrhosis; holding until lytes normalize replete and monitor Metabolic alkalosis - seems as severe contraction ABG with pH 7.6, CO2 40 in setting of recently starting lactulose, ? worsening renal disease, ? 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 Will need GI follow up given recent hospitalizations Atrial fibrillation A fib with RVR noted during May admission here that spontaneously converted back to sinus with frequent atrial ectopy Of note, did have a ziopatch monitor ordered by cardiology on 10/15/23 to further assess underlying a fib (seen during previous admission but variable) given recent splenic infarct (ALMA from 06[place] [facility] [place] intracardiac mass, vegetation or thrombus) Initial EKG with rate controlled A fib, repeat EKG while still in ED with sinus rhythm with aberrant conduction. Continue to monitor on tele, continue Lopressor, consider cardiology consult if recurs HFpEF s/p TAVR Recent 2D echo with EF 65% CXR with cardiomegaly without acute process Monitor volume status closely CAD S/P stent Chronic, stable. Continue plavix, statin, beta nayeli CKD III Initial Cr 1.25 -> 1.08 closer to baseline after IV fluids. Continue to monitor closely Nephrology following H/O colon cancer H/O breast cancer S/P bilateral mastectomy, radiation Mood disorder H/O schizoaffective disorder, bipolar type Home medications recently discontinued during hospitalizations given polypha rmacy except for gabapentin TID, trazodone HS Recent epistaxis Reported nosebleed at home before dizziness started; self- packed with rolled tissue paper Started on Rocephin for empiric coverage , pcn allergy on record DANYELLE CPAP at bedtime DVT Ppx: SQ heparin Code status: FULL PCP: Dr. Rausch Dispo: PCU Admission and Anticipated Discharge Date Admission Date: October 27, 2023 Subjective Pt seen in follow up of dizziness, metab.alkalosis, hyponatremia Currently sitting up in chair in NAD, she is awake alert and answering appropriately. says she feels better overall Denies any fever, chills , chest pain, shortness of breath or abdominal pain. Dizziness improving. Nephrology following closely - no IVF or diuretic today, plan to repeat BMP, VBG tmrw AM Review of Systems Review of Systems: All systems reviewed & are unremarkable except as noted in Subjective Physical Exam 2 Physical Exam: General Appearance: WD/WN, frail F (chronically ill appearing) in NAD Head: normocephalic, atraumatic Eyes: normal inspection, PERRL, conjunctivae normal, anicteric sclerae ENT: external ear and nose normal Neck: normal visual inspection Respiratory: normal respiratory effort, lungs clear to auscultation, no wheeze, rales, rhonchi. Cardiovascular: rrr, no murmur, normal peripheral pulses, no BLE edema. Vessels: no JVD Chest: normal inspection of chest Abdomen/GI: normal bowel sounds, soft, nontender Extremities/Musculoskeletal: moves extremities Neurologic: PERRL, EOMI, no face palsy, no dysarthria, moves extremities Psychiatric: A+Ox3, euthymic affect Skin: no rashes, normal color, warm/dry Results & Data Results & Data Vital Signs (Past 12 Hours) Vital Signs Temp Pulse Pulse Resp BP Pulse Ox Pulse Ox 10/30/23 07:53 36.6 C 87 18 106/68 95 10/30/23 03:01 36.5 C 57 L 18 130/82 95 10/29/23 23:18 85 10/29/23 22:32 37.0 C 74 18 125/75 96 10/29/23 22:05 96 O2 Del Method O2 Del Method 10/30/23 07:53 Room Air 10/30/23 03:01 Room Air 10/29/23 23:18 10/29/23 22:32 Room Air 10/29/23 22:05 Room Air Laboratory Results 10/30/23 10/30/23 10/30/23 Range/Units 07:17 06:44 03:51 WBC 8.01 (4.8-10.8) K/ul RBC 4.04 L (4.20-5.40) M/uL Hgb 10.3 L (12.0-16.0) g/dl Hct 31.0 L (37.0-47.0) % MCV 76.7 L (80.0-100.0) fL MCH 25.5 (25.0-34.0) pg MCHC 33.2 (32.0-36.0) g/dL RDW Std Deviation 44.8 (36.4-46.3) fL RDW Coeff of Valerio 16.1 H (11.5-14.5) % Plt Count 163 (130-400) K/uL MPV 10.8 (9.4-12.4) fL Sodium 131 L (136-145) mmol/L Potassium 3.6 (3.5-5.1) mmol/L Chloride 93 L (98-107) mmol/L Carbon Dioxide 31 (21-32) mmol/L Anion Gap 7 (3-11) BUN 15 (6-23) mg/dl Creatinine 1.23 H (0.6-1.2) mg/dl Est Cr Clr Drug Dosing 40.1 ml/min Est GFR ( Amer) 53.7 ml/min Est GFR (Non-Af Amer) 46.3 ml/min BUN/Creatinine Ratio 12.2 (10-20) Glucose 196 H (70-99(Fasting)) mg/dl POC Glucose 171 H 117 H (70-99) mg/dl Calcium 9.4 (8.6-10.3) mg/dl Phosphorus 4.8 D (2.5-4.9) mg/dl Magnesium 1.8 (1.7-2.4) mg/dl 10/30/23 10/29/23 10/29/23 Range/Units 01:17 20:10 16:53 WBC (4.8-10.8) K/ul RBC (4.20-5.40) M/uL Hgb (12.0-16.0) g/dl Hct (37.0-47.0) % MCV (80.0-100.0) fL MCH (25.0-34.0) pg MCHC (32.0-36.0) g/dL RDW Std Deviation (36.4-46.3) fL RDW Coeff of Valerio (11.5-14.5) % Plt Count (130-400) K/uL MPV (9.4-12.4) fL Sodium (136-145) mmol/L Potassium (3.5-5.1) mmol/L Chloride (98-107) mmol/L Carbon Dioxide (21-32) mmol/L Anion Gap (3-11) BUN (6-23) mg/dl Creatinine (0.6-1.2) mg/dl Est Cr Clr Drug Dosing ml/min Est GFR ( Amer) ml/min Est GFR (Non-Af Amer) ml/min BUN/Creatinine Ratio (10-20) Glucose (70-99(Fasting)) mg/dl POC Glucose 113 H 102 H 140 H (70-99) mg/dl Calcium (8.6-10.3) mg/dl Phosphorus (2.5-4.9) mg/dl Magnesium (1.7-2.4) mg/dl 10/29/23 Range/Units 11:36 WBC (4.8-10.8) K/ul RBC (4.20-5.40) M/uL Hgb (12.0-16.0) g/dl Hct (37.0-47.0) % MCV (80.0-100.0) fL MCH (25.0-34.0) pg MCHC (32.0-36.0) g/dL RDW Std Deviation (36.4-46.3) fL RDW Coeff of Valerio (11.5-14.5) % Plt Count (130-400) K/uL MPV (9.4-12.4) fL Sodium (136-145) mmol/L Potassium (3.5-5.1) mmol/L Chloride (98-107) mmol/L Carbon Dioxide (21-32) mmol/L Anion Gap (3-11) BUN (6-23) mg/dl Creatinine (0.6-1.2) mg/dl Est Cr Clr Drug Dosing ml/min Est GFR ( Amer) ml/min Est GFR (Non-Af Amer) ml/min BUN/Creatinine Ratio (10-20) Glucose (70-99(Fasting)) mg/dl POC Glucose 259 H (70-99) mg/dl Calcium (8.6-10.3) mg/dl Phosphorus (2.5-4.9) mg/dl Magnesium (1.7-2.4) mg/dl Medications Administered Current Inpatient Medications Acetaminophen (Acetaminophen 325 Mg Tab) 650 mg PO Q4H PRN PRN Reason: Pain or Fever Stop: 11/26/23 19:22 Last Admin: 10/28/23 13:46 Dose: 650 mg Atorvastatin Calcium (Atorvastatin 40 Mg Tab) 40 mg PO DAILY [facility] Stop: 11/27/23 08:59 Last Admin: 10/30/23 08:38 Dose: 40 mg Clopidogrel Bisulfate (Clopidogrel Bisulfate 75 Mg Tab) 75 mg PO DAILY [facility] Stop: 11/27/23 08:59 Last Admin: 10/30/23 08:38 Dose: 75 mg Dextrose (Dextrose 50% 50 Ml Syringe) 25 - 50 ml IV UD PRN; Protocol PRN Reason: Hypoglycemia Protocol Stop: 11/26/23 15:14 Fluticasone Propionate (Fluticasone Propionate Na Spr 16 Gm Btl) 2 sprays ASH DAILY [facility] Stop: 11/27/23 08:59 Last Admin: 10/29/23 09:29 Dose: 2 sprays Gabapentin (Gabapentin 100 Mg Cap) 100 mg PO TID [facility] Stop: 11/26/23 20:59 Last Admin: 10/30/23 08:38 Dose: 100 mg Glucagon (Glucagon For Inj 1 Mg Vial) 1 mg IM UD PRN; Protocol PRN Reason: Hypoglycemia Protocol Stop: 11/26/23 15:14 Glucose (Glucose 40% Gel 15 Gm Tube) 15 - 30 gm PO UD PRN; Protocol PRN Reason: Hypoglycemia Protocol Stop: 11/26/23 15:14 Glucose (Glucose 10 Tab/Tube) 4 - 8 tab PO UD PRN; Protocol PRN Reason: Hypoglycemia Protocol Stop: 11/26/23 15:14 Ceftriaxone Sodium 2,000 mg/ (Dextrose) 50 mls @ 100 mls/hr IV Q24H [facility]; Protocol Stop: 11/06/23 17:29 Last Infusion: 10/29/23 17:41 Dose: Infused Insulin Aspart (Insulin Aspart Per Unit Charge) 0 units SC ACHS [facility] Stop: 11/26/23 15:14 Last Admin: 10/30/23 08:34 Dose: 32 units Insulin Glargine (Lantus Per Unit Charge) 55 units SC DAILY [facility] Stop: 11/28/23 08:59 Last Admin: 10/30/23 08:35 Dose: 55 units Insulin Glargine (Lantus Per Unit Charge) 0 units SC HS [facility]; Protocol Stop: 11/28/23 20:59 Last Admin: 10/29/23 20:19 Dose: Not Given Lactic Acid (Ammonium Lactate 12% Lotion 225 Gm Btl) 1 gm EXT DAILY [facility] Stop: 11/27/23 08:59 Last Admin: 10/30/23 08:37 Dose: 1 gm Levothyroxine Sodium ([facility]othyroxine Sodium 75 Mcg Tablet) [facility] Stop: 11/27/23 06:29 Last Admin: 10/30/23 06:42 Dose: 75 mcg Magnesium Oxide (Magnesium Oxide 400 Mg Tab) 400 mg PO DAILY [facility] Stop: 11/27/23 08:59 Last Admin: 10/30/23 08:38 Dose: 400 mg Meclizine HCl (Meclizine Hcl 25 Mg Tab) 50 mg PO BID [facility] Stop: 11/26/23 20:59 Last Admin: 10/30/23 08:38 Dose: 50 mg Melatonin (Melatonin 3 Mg Tab) 9 mg PO [facility] Stop: 11/26/23 20:59 Last Admin: 10/29/23 20:04 Dose: 9 mg Metoprolol Tartrate (Metoprolol Tartrate 25 Mg Tab) 25 mg PO BID [facility] Stop: 11/26/23 20:59 Last Admin: 10/30/23 08:42 Dose: 25 mg Miscellaneous (Carbohydrates For Hypoglycemia ) 15 - 30 gm PO UD PRN PRN Reason: Hypoglycemia Treatment Stop: 11/26/23 15:14 Miscellaneous Information (Pharmacy Glycemic Mgmt Consult) 1 each N/A UD PRN; Protocol PRN Reason: Consult Stop: 11/26/23 14:51 Multivitamins/Minerals (Cerovite Adv Formula Tab) 1 tab PO DAILY [facility] Stop: 11/27/23 08:59 Last Admin: 10/30/23 08:38 Dose: 1 tab Ondansetron HCl (Ondansetron Inj 2 Mg/Ml 2 Ml Vial) 4 mg IV Q6H PRN PRN Reason: Nausea Stop: 11/26/23 19:22 Potassium Chloride (Potassium Chloride 10 Meq Tabcr) 10 meq PO BID [facility] Stop: 11/26/23 20:59 Last Admin: 02/04/24 10:40 Dose: 10 meq Trazodone HCl (Trazodone Hcl 100 Mg Tab) 100 mg PO HS [facility] Stop: 11/26/23 20:59 Last Admin: 10/29/23 20:04 Dose: 100 mg
--- NOTE | 2023-10-30 09:57 | Nephrology Progress Note ---
Date of Service October 30, 2023 Assessment & Plan Admission and Anticipated Discharge Date Admission Date: October 27, 2023 Subjective Assessment & Plan (1) Electrolyte and fluid disorder: improving hyponatremia --Hypovolemic Hyponatremia with Hypokalemia and Met Alkalosis--Sig worsened eula by metolazone. Good response to IVF. But now na stalled at 131. Going forward she should be managed with strictly Loop Diuretics alone. No metolazone--Too many Electrolyte and Acid/base issues to manage. her torsemide dose was super low anyway at 10 daily. lot of room to go up. Will only restart torsemide at higher dose at discharge. na stable at 131. No iv fluids and no Diuretics today VBG in AM (2) Acute renal failure: recovered and now back to normal baseline (3) Metabolic alkalosis: pH 7.63 on ABG on presentation. appears to be from severe contraction. VBG in AM tomorrow. S--No new issues. BP is somewhat low. Denies SOB, N, V, CP. making urine ? amount. Creat down and bicarb down. na same Physical Exam Constitutional: well developed, well nourished, cooperative no acute distress ENMT: MM moist. Respiratory: normal respiratory effort Auscultation: + diminished lung sounds Cardiovascular: RRR, no murmur, no edema Gastrointestinal (Abdomen): Inspection/Auscultation: normal bowel sounds Percussion/Palpation: abdomen soft; abdomen nontender Musculoskeletal: Extremities: No edema Skin: no rashes, warm and dry Neurologic: Normal Speech. Psychiatric: Orientation: alert and oriented x 3 Results & Data Vital Signs (Past 12 Hours) Vital Signs Temp Pulse Pulse Resp BP Pulse Ox Pulse Ox 10/30/23 07:53 36.6 C 87 18 106/68 95 10/30/23 03:01 36.5 C 57 L 18 130/82 95 10/29/23 23:18 85 10/29/23 22:32 37.0 C 74 18 125/75 96 10/29/23 22:05 96 O2 Del Method O2 Del Method 10/30/23 07:53 Room Air 10/30/23 03:01 Room Air 10/29/23 23:18 10/29/23 22:32 Room Air 10/29/23 22:05 Room Air
--- NOTE | 2023-10-31 06:56 | Hospitalist Progress Note ---
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 Patient has a complicated recent course this started in May 2023 when she was seen at [facility] for melena and abdominal pain and found to have possible pneumoperitoneum and was transferred to [facility], where she was admitted from 06/06-06/22. While there, underwent 2 ex lap surgeries without evidence of perforation. Hospital course at [facility] was complicated by C. difficile infection, COVID-19 infection and splenic infarcts (ALMA from 06/21 without intracardiac mass, vegetation or thrombus). Discharged to SNF on 06/22/23. Was then admitted from SNF to [facility] from 06/25-06/29 for melena and coffee ground emesis. During admission, underwent transfusion of 4u PRBCs and endoscopy was performed on 06/27 with multiple ulcers noted in the transverse/left/sigmoid colon compatible with ischemia and were biopsied. Hemoglobin remained stable following blood transfusion and no other intervention was done. Was discharged to a SNF and then returned home about a month ago, where she lives alone. Vertigo H/o benign paroxysmal positional vertigo due to bilateral vestibular disorder Improved in ED after meclizine, continue home dose CT head, head/neck CTA without acute findings Resp biofire negative vertigo is improving Acute hyponatremia Initial Na 121 (125-126 when correcting for hyperglycemia) Serum and urine osms consistent with hypotonic hypovolemic hyponatremia Started on NSS 125ml /hr initially Nephrology consulted and following closely Current Na 132 Monitor BMP closely, replete K Per nephrology - no metolazone and at this time does not need torsemide. if she needs diuretic in the future - she can be restarted on torsemide but she should not be restarted on metolazone. Acute hyperglycemia in setting of DM II BSG initially 380 -> 225 with SQ insulin Questionable compliance with insulin in the past Appreciate glycemic pharmacy recs Hold home agents Glycemic consult placed BSG AC HS Acute hypokalemia Initial K 2.3 - recently resumed lactulose for longstanding history of LEYVA cirrhosis; holding until lytes normalize replete and monitor Metabolic alkalosis - seems as severe contraction ABG with pH 7.6, CO2 40 in setting of recently starting lactulose, ? worsening renal disease, ? 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 Will need GI follow up given recent hospitalizations Atrial fibrillation A fib with RVR noted during May admission here that spontaneously converted back to sinus with frequent atrial ectopy Of note, did have a ziopatch monitor ordered by cardiology on 10/15/23 to further assess underlying a fib (seen during previous admission but variable) given recent splenic infarct (ALMA from 06/21 at [facility] without intracardiac mass, vegetation or thrombus) Initial EKG with rate controlled A fib, repeat EKG while still in ED with sinus rhythm with aberrant conduction. Continue to monitor on tele, continue Lopressor, consider cardiology consult if recurs HFpEF s/p TAVR Recent 2D echo with EF 65% CXR with cardiomegaly without acute process Monitor volume status closely CAD S/P stent Chronic, stable. Continue plavix, statin, beta nayeli CKD III Initial Cr 1.25 -> 1 closer to baseline after IV fluids. Continue to monitor closely Nephrology following H/O colon cancer H/O breast cancer S/P bilateral mastectomy, radiation Mood disorder H/O schizoaffective disorder, bipolar type Home medications recently discontinued during hospitalizations given polypharmacy except for gabapentin TID, trazodone HS Recent epistaxis Reported nosebleed at home before dizziness started; self- packed with rolled tissue paper Started on Rocephin for empiric coverage , pcn allergy on record DANYELLE CPAP at bedtime DVT Ppx: SQ heparin Code status: FULL PCP: Dr. Rausch Dispo: PCU Admission and Anticipated Discharge Date Admission Date: October 27, 2023 Subjective Pt seen in follow up of dizziness, metab.alkalosis, hyponatremia Currently sitting up in chair in NAD, she is awake alert and answering appropri ately. says she feels better overall Denies any fever, chills , chest pain, shortness of breath or abdominal pain. Dizziness improving. Nephrology following closely Review of Systems Review of Systems: All systems reviewed & are unremarkable except as noted in Subjective Physical Exam Physical Exam: General Appearance: WD/WN, frail F (chronically ill appearing) in NAD Head: normocephalic, atraumatic Eyes: normal inspection, PERRL, conjunctivae normal, anicteric sclerae ENT: external ear and nose normal Neck: normal visual inspection Respiratory: normal respiratory effort, lungs clear to auscultation, no wheeze, rales, rhonchi. Cardiovascular: rrr, no murmur, normal peripheral pulses, no BLE edema. Vessels: no JVD Chest: normal inspection of chest Abdomen/GI: normal bowel sounds, soft, nontender Extremities/Musculoskeletal: moves extremities Neurologic: PERRL, EOMI, no face palsy, no dysarthria, moves extremities Psychiatric: A+Ox3, euthymic affect Skin: no rashes, normal color, warm/dry Results & Data Results & Data Vital Signs (Past 12 Hours) Vital Signs Temp Pulse Pulse Resp BP Pulse Ox O2 Del Method 10/31/23 03:16 36.5 C 85 20 122/74 94 Room Air 10/30/23 23:00 86 10/30/23 22:56 37.0 C 87 18 153/83 H 94 Room Air 10/30/23 20:00 Room Air 10/30/23 19:28 37.0 C 80 18 117/62 97 Room Air Laboratory Results 10/31/23 10/31/23 10/31/23 Range/Units 07:28 07:16 07:11 WBC 9.48 (4.8-10.8) K/ul RBC 4.45 (4.20-5.40) M/uL Hgb 11.1 L (12.0-16.0) g/dl Hct 34.5 L (37.0-47.0) % MCV 77.5 L (80.0-100.0) fL MCH 24.9 L (25.0-34.0) pg MCHC 32.2 (32.0-36.0) g/dL RDW Std Deviation 45.1 (36.4-46.3) fL RDW Coeff of Valerio 16.2 H (11.5-14.5) % Plt Count 175 (130-400) K/uL MPV 10.4 (9.4-12.4) fL VBG pH 7.43 H (7.36-7.41) VBG pCO2 52 H (38-50) mmHg VBG pO2 43 mmHg VBG HCO3 35 mmol/L VBG O2 Saturation 74.5 % VBG Base Excess 8.5 mEq/L Sodium 132 L (136-145) mmol/L Potassium 3.8 (3.5-5.1) mmol/L Chloride 95 L (98-107) mmol/L Carbon Dioxide 31 (21-32) mmol/L Anion Gap 6 (3-11) BUN 15 (6-23) mg/dl Creatinine 0.99 (0.6-1.2) mg/dl Est Cr Clr Drug Dosing 49.6 ml/min Est GFR ( Amer) 69.8 ml/min Est GFR (Non-Af Amer) 60.2 ml/min BUN/Creatinine Ratio 15.2 (10-20) Glucose 118 H (70-99(Fasting)) mg/dl POC Glucose 116 H (70-99) mg/dl Calcium 9.3 (8.6-10.3) mg/dl Phosphorus 4.5 (2.5-4.9) mg/dl Magnesium 1.7 (1.7-2.4) mg/dl Hepatitis C Ab (EIA) (NON-REACTIVE) 10/30/23 10/30/23 10/30/23 Range/Units 19:53 16:08 11:16 WBC (4.8-10.8) K/ul RBC (4.20-5.40) M/uL Hgb (12.0-16.0) g/dl Hct (37.0-47.0) % MCV (80.0-100.0) fL MCH (25.0-34.0) pg MCHC (32.0-36.0) g/dL RDW Std Deviation (36.4-46.3) fL RDW Coeff of Valerio (11.5-14.5) % Plt Count (130-400) K/uL MPV (9.4-12.4) fL VBG pH (7.36-7.41) VBG pCO2 (38-50) mmHg VBG pO2 mmHg VBG HCO3 mmol/L VBG O2 Saturation % VBG Base Excess mEq/L Sodium (136-145) mmol/L Potassium (3.5-5.1) mmol/L Chloride (98-107) mmol/L Carbon Dioxide (21-32) mmol/L Anion Gap (3-11) BUN (6-23) mg/dl Creatinine (0.6-1.2) mg/dl Est Cr Clr Drug Dosing ml/min Est GFR ( Amer) ml/min Est GFR (Non-Af Amer) ml/min BUN/Creatinine Ratio (10-20) Glucose (70-99(Fasting)) mg/dl POC Glucose 149 H 101 H 276 H (70-99) mg/dl Calcium (8.6-10.3) mg/dl Phosphorus (2.5-4.9) mg/dl Magnesium (1.7-2.4) mg/dl Hepatitis C Ab (EIA) (NON-REACTIVE) 10/28/23 Range/Units 08:07 WBC (4.8-10.8) K/ul RBC (4.20-5.40) M/uL Hgb (12.0-16.0) g/dl Hct (37.0-47.0) % MCV (80.0-100.0) fL MCH (25.0-34.0) pg MCHC (32.0-36.0) g/dL RDW Std Deviation (36.4-46.3) fL RDW Coeff of Valerio (11.5-14.5) % Plt Count (130-400) K/uL MPV (9.4-12.4) fL VBG pH (7.36-7.41) VBG pCO2 (38-50) mmHg VBG pO2 mmHg VBG HCO3 mmol/L VBG O2 Saturation % VBG Base Excess mEq/L Sodium (136-145) mmol/L Potassium (3.5-5.1) mmol/L Chloride (98-107) mmol/L Carbon Dioxide (21-32) mmol/L Anion Gap (3-11) BUN (6-23) mg/dl Creatinine (0.6-1.2) mg/dl Est Cr Clr Drug Dosing ml/min Est GFR ( Amer) ml/min Est GFR (Non-Af Amer) ml/min BUN/Creatinine Ratio (10-20) Glucose (70-99(Fasting)) mg/dl POC Glucose (70-99) mg/dl Calcium (8.6-10.3) mg/dl Phosphorus (2.5-4.9) mg/dl Magnesium (1.7-2.4) mg/dl Hepatitis C Ab (EIA) NON-REACTIVE (NON-REACTIVE) Medications Administered Current Inpatient Medications Acetaminophen (Acetaminophen 325 Mg Tab) 650 mg PO Q4H PRN PRN Reason: Pain or Fever Stop: 11/26/23 19:22 Last Admin: 10/30/23 10:49 Dose: 650 mg Atorvastatin Calcium (Atorvastatin 40 Mg Tab) 40 mg PO DAILY EVGENY Stop: 11/27/23 08:59 Last Admin: 10/30/23 08:38 Dose: 40 mg Clopidogrel Bisulfate (Clopidogrel Bisulfate 75 Mg Tab) 75 mg PO DAILY EVGENY Stop: 11/27/23 08:59 Last Admin: 10/30/23 08:38 Dose: 75 mg Dextrose (Dextrose 50% 50 Ml Syringe) 25 - 50 ml IV UD PRN; Protocol PRN Reason: Hypoglycemia Protocol Stop: 11/26/23 15:14 Fluticasone Propionate (Fluticasone Propionate Na Spr 16 Gm Btl) 2 sprays ASH DAILY [facility] Stop: 11/27/23 08:59 Last Admin: 10/30/23 10:48 Dose: 2 sprays Gabapentin (Gabapentin 100 Mg Cap) 100 mg PO TID [facility] Stop: 11/26/23 20:59 Last Admin: 10/30/23 21:47 Dose: 100 mg Glucagon (Glucagon For Inj 1 Mg Vial) 1 mg IM UD PRN; Protocol PRN Reason: Hypoglycemia Protocol Stop: 11/26/23 15:14 Glucose (Glucose 40% Gel 15 Gm Tube) 15 - 30 gm PO UD PRN; Protocol PRN Reason: Hypoglycemia Protocol Stop: 11/26/23 15:14 Glucose (Glucose 10 Tab/Tube) 4 - 8 tab PO UD PRN; Protocol PRN Reason: Hypoglycemia Protocol Stop: 11/26/23 15:14 Ceftriaxone Sodium 2,000 mg/ (Dextrose) 50 mls @ 100 mls/hr IV Q24H [facility]; Protocol Stop: 11/06/23 17:29 Last Infusion: 10/30/23 18:09 Dose: Infused Insulin Aspart (Insulin Aspart Per Unit Charge) 0 units SC [facility] Stop: 11/26/23 15:14 Last Admin: 10/30/23 21:46 Dose: 1 units Insulin Glargine (Lantus Per Unit Charge) 55 units SC DAILY [facility] Stop: 11/28/23 08:59 Last Admin: 10/30/23 08:35 Dose: 55 units Insulin Glargine (Lantus Per Unit Charge) 0 units SC [facility]; Protocol Stop: 11/28/23 20:59 Last Admin: 10/30/23 21:39 Dose: Not Given Lactic Acid (Ammonium Lactate 12% Lotion 225 Gm Btl) 1 gm EXT DAILY [facility] Stop: 11/27/23 08:59 Last Admin: 10/30/23 08:37 Dose: 1 gm Levothyroxine Sodium (Levothyroxine Sodium 75 Mcg Tablet) [facility] Stop: 11/27/23 06:29 Last Admin: 10/31/23 05:38 Dose: 75 mcg Magnesium Oxide (Magnesium Oxide 400 Mg Tab) 400 mg PO DAILY [facility] Stop: 11/27/23 08:59 Last Admin: 10/30/23 08:38 Dose: 400 mg Meclizine HCl (Meclizine Hcl 25 Mg Tab) 50 mg PO BID [facility] Stop: 11/26/23 20:59 Last Admin: 10/30/23 21:48 Dose: 50 mg Melatonin (Melatonin 3 Mg Tab) 9 mg PO [facility] Stop: 11/26/23 20:59 Last Admin: 10/30/23 21:47 Dose: 9 mg Metoprolol Tartrate (Metoprolol Tartrate 25 Mg Tab) 25 mg PO BID [facility] Stop: 11/26/23 20:59 Last Admin: 10/30/23 21:48 Dose: 25 mg Miscellaneous (Carbohydrates For Hypoglycemia ) 15 - 30 gm PO UD PRN PRN Reason: Hypoglycemia Treatment Stop: 11/26/23 15:14 Miscellaneous Information (Pharmacy Glycemic Mgmt Consult) 1 each N/A UD PRN; Protocol PRN Reason: Consult Stop: 11/26/23 14:51 Multivitamins/Minerals (Cerovite Adv Formula Tab) 1 tab PO DAILY EVGENY Stop: 11/27/23 08:59 Last Admin: 10/30/23 08:38 Dose: 1 tab Ondansetron HCl (Ondansetron Inj 2 Mg/Ml 2 Ml Vial) 4 mg IV Q6H PRN PRN Reason: Nausea Stop: 11/26/23 19:22 Potassium Chloride (Potassium Chloride 10 Meq Tabcr) 10 meq PO BID EVGENY Stop: 11/26/23 20:59 Last Admin: 10/28/23 10:40 Dose: 10 meq Trazodone HCl (Trazodone Hcl 100 Mg Tab) 100 mg PO HS EVGENY Stop: 11/26/23 20:59 Last Admin: 10/30/23 21:47 Dose: 100 mg
[2023-10-31 07:25] LABS: Base Excess VBG 8.5 mEq/L; HCO3 VBG 35 mmol/L; Oxygen Saturation VBG 74.5 %; PCO2 VBG 52 mmHg (38-50); PO2 VBG 43 mmHg; pH VBG 7.43 (7.36-7.41)
[2023-10-31 07:32] LABS: Hematocrit (blood only) 34.5 % (37.0-47.0); Hemoglobin 11.1 g/dl (12.0-16.0); Mean Corpuscular Hemoglobin 24.9 pg (25.0-34.0); Mean Corpuscular Hgb Conc 32.2 g/dL (32.0-36.0); Mean Corpuscular Volume 77.5 fL (80.0-100.0); Mean Platelet Volume 10.4 fL (9.4-12.4); Platelet Count 175 K/uL (130-400); RDW Coefficient of Variation 16.2 % (11.5-14.5); RDW Standard Deviation 45.1 fL (36.4-46.3); Red Blood Count 4.45 M/uL (4.20-5.40); White Blood Count 9.48 K/ul (4.8-10.8)
[2023-10-31 07:53] LABS: BUN Creatinine Ratio 15.2 (10-20); Calcium 9.3 mg/dl (8.6-10.3); Creatinine Clr Calc Pharmacy 49.6 ml/min; Est GFR (African American) 69.8 ml/min; Est GFR (Non-African American) 60.2 ml/min; Magnesium 1.7 mg/dl (1.7-2.4); Phosphorus 4.5 mg/dl (2.5-4.9); Potassium 3.8 mmol/L (3.5-5.1)
[2023-10-31] MEDS: INSULIN ASPART PER UNIT CHARGE SC SCH ×2 (08:18→12:18)
--- NOTE | 2023-10-31 09:54 | Nephrology Progress Note ---
Date of Service October 31, 2023 Assessment & Plan Admission and Anticipated Discharge Date Admission Date: October 27, 2023 Subjective Assessment & Plan (1) Electrolyte and fluid disorder: Improving hyponatremia --Hypovolemic Hyponatremia with Hypokalemia and Met Alkalosis--Sig worsened eula by metolazone. Good response to IVF. But now na stalled at 131. Going forward she should be managed with strictly Loop Diuretics alone. No metolazone--Too many Electrolyte and Acid/base issues to manage. Her torsemide dose was super low anyway at 10 daily. lot of room to go up. na stable at 132. No iv fluids and no Diuretics today VBG --now normal pH. She is doig so good without any diuretics for so many days now. Not sure she even needs any Diuretics and Definitely dont use metolazone (2) Acute renal failure: recovered and now back to normal baseline (3) Metabolic alkalosis: pH 7.63 on ABG on presentation. VBG shows pH of 7.43 today S--No new issues. Denies SOB, N, V, CP. making urine ? amount. Creat down and bicarb down. na same Physical Exam Constitutional: well developed, well nourished, cooperative no acute distress ENMT: MM moist. Respiratory: normal respiratory effort Auscultation: + diminished lung sounds Cardiovascular: RRR, no murmur, no edema Gastrointestinal (Abdomen): Inspection/Auscultation: normal bowel sounds Percussion/Palpation: abdomen soft; abdomen nontender Musculoskeletal: Extremities: No edema Skin: no rashes, warm and dry Neurologic: Normal Speech. Psychiatric: Orientation: alert and oriented x 3 Results & Data Vital Signs (Past 12 Hours) Vital Signs Temp Pulse Pulse Resp BP Pulse Ox O2 Del Method 10/31/23 07:30 36.6 C 81 18 103/54 L 95 Room Air 10/31/23 03:16 36.5 C 85 20 122/74 94 Room Air 10/30/23 23:00 86 10/30/23 22:56 37.0 C 87 18 153/83 H 94 Room Air
--- NOTE | 2023-10-31 11:23 | Pharmacy Report ---
Pharmacy Glycemic Short Note 2 - Date of Service October 31, 2023 - Glycemic Short BSG Results (Last 24 hours): 10/30/23 10/30/23 10/31/23 16:08 19:53 07:11 Glucose 118 H POC Glucose 101 H 149 H 10/31/23 10/31/23 07:28 11:12 Glucose POC Glucose 116 H 208 H OUTPATIENT ANTIDIABETIC REGIMEN: * Tresiba 30 units hs, novolog, metformin 1000 mg bidm, ozempic ASSESSMENT: 10/31/23: * BSGs remain reasonably well-controlled sans lunchtime BSG * Tightened carb ratio at breakfast today and saw improved lunchtime BSG today comparatively * Receiving ~130-140 units of insulin/day * Do not anticipate any other changes to glycemic regimen today 10/29 * Jovita received 133 units of insulin yesterday (55 were basal) * Fasting BSG this AM improved, but still above goal range. Will allow for a 15% increase if bedtime BSG is above goal range. * BSGs trend up after lunch and dinner, will tighten carbohydrate ratio. Historically had very tight carbohydrate ratios * She continues on ceftriaxone, no other glycemic stressors noted at this time. 10/28 * 62 year old, type 2 diabetic (7.5% a1c 09/15) presenting with dizziness/hyperglycemia/hyponatremia. Pharmacy consulted for glycemic management. Confirmed with patient Tresiba dose at home as this appears to be a recent significant reduction in dosing compared to prior admissions. Patient received total of 59 units of insulin yesterday, of which 40 units were basal insulin. * Fasting BSG elevated at 250 mg/dL - patient received ~12 units correctional insulin overnight. Will increase to 55 units basal this AM. Lunch time BSGs trending upward despite tightening of novolog, will tighten further at lunch. * RN taking blood sugar after eating (359 mg/dL) due to patient falling asleep while eating/very lethargic. I asked nurse to use BSG prior to eating and not this blood sugar to assess insulin needs with novolog. Also recommended she reach out to provider if this is something that has been ongoing due to concerns for possible aspiration. * Will continue closer monitoring with overnight checks - Recommended RN reach out to pharmacy if checking BSGs d/t lethargic as likely we will hold insulin if after eating. PLAN FOR INPATIENT GLYCEMIC CONTROL: * Hold outpatient oral diabetes medications * Basal insulin * Lantus 55 units daily * Bolus insulin * NovoLog per scale ACHS or Q6hrs while NPO * Goal Range: Low 110 mg/dL - High 140 mg/dL * Correction Factor: 10 mg/dL/unit * Nutritional / Prandial insulin per carb ratio of 1 unit per 1.5 grams CHO consumed w/ breakfast, 1 unit per 2 grams CHO consumed w/ lunch, dinner, and at HS
[2023-11-01 07:39] LABS: Hematocrit (blood only) 33.3 % (37.0-47.0); Hemoglobin 10.7 g/dl (12.0-16.0); Mean Corpuscular Hemoglobin 25.4 pg (25.0-34.0); Mean Corpuscular Hgb Conc 32.1 g/dL (32.0-36.0); Mean Corpuscular Volume 79.1 fL (80.0-100.0); Mean Platelet Volume 10.7 fL (9.4-12.4); Platelet Count 150 K/uL (130-400); RDW Coefficient of Variation 16.1 % (11.5-14.5); RDW Standard Deviation 45.6 fL (36.4-46.3); Red Blood Count 4.21 M/uL (4.20-5.40); White Blood Count 6.74 K/ul (4.8-10.8)
[2023-11-01 07:44] VITALS: RESP 17; O2SAT 97
[2023-11-01 08:03] LABS: Calcium 9.1 mg/dl (8.6-10.3); Creatinine Clr Calc Pharmacy 45.6 ml/min; Est GFR (African American) 62.8 ml/min; Est GFR (Non-African American) 54.2 ml/min; Magnesium 1.7 mg/dl (1.7-2.4); Phosphorus 4.5 mg/dl (2.5-4.9); Potassium 3.7 mmol/L (3.5-5.1)
[2023-11-01] MEDS: LANTUS PER UNIT CHARGE SC SCH (08:21)
--- NOTE | 2023-11-01 10:38 | Nephrology Progress Note ---
Date of Service November 01, 2023 Assessment & Plan Admission and Anticipated Discharge Date Admission Date: October 27, 2023 Subjective Assessment & Plan (1) Electrolyte and fluid disorder: Improving hyponatremia --Hypovolemic Hyponatremia with Hypokalemia and Met Alkalosis--Sig worsened eula by metolazone. Good response to IVF. But now na stalled at 131. Going forward she should be managed with strictly Loop Diuretics alone if she needs Diuretics. No metolazone--Too many Electrolyte and Acid/base issues to manage. Her torsemide dose was super low anyway at 10 daily so lot of room to go up if needed. na stable at 134. No iv fluids and no Diuretics for many days now She is doing so good without any diuretics for so many days now. Not sure she even needs any Diuretics and Definitely dont use metolazone. Will sign off. Call if any new issues. (2) Acute renal failure: recovered and now back to normal baseline (3) Metabolic alkalosis: pH 7.63 on ABG on presentation. VBG shows pH of 7.43 yesterday. S--No new issues. Denies SOB, N, V, CP. making urine ? amount. Creat down and bicarb down. na near normal now at 134 Physical Exam Constitutional: well developed, well nourished, cooperative no acute distress ENMT: MM moist. Respiratory: normal respiratory effort Auscultation: + diminished lung sounds Cardiovascular: RRR, no murmur, no edema Gastrointestinal (Abdomen): Inspection/Auscultation: normal bowel sounds Percussion/Palpation: abdomen soft; abdomen nontender Musculoskeletal: Extremities: No edema Skin: no rashes, warm and dry Neurologic: Normal Speech. Psychiatric: Orientation: alert and oriented x 3 Results & Data Vital Signs (Past 12 Hours) Vital Signs Temp Pulse Pulse Resp BP Pulse Ox O2 Del Method 11/01/23 07:44 36.5 C 89 17 137/81 97 Room Air 11/01/23 03:11 36.9 C 85 20 123/69 93 Room Air 10/31/23 23:00 91 H 10/31/23 23:00 36.8 C 82 18 114/67 95 Room Air
[2023-11-01 11:34] VITALS: BP 126/76; TEMP 97.5
[2023-11-01] MEDS: ADVANCED PROBIOTIC 1250 MG CAPSULE PO SCH (12:44)
--- NOTE | 2023-11-01 13:43 | Discharge Summary ---
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 Has history of vertigo but usually if she eats well and gets a good nights rest it resolves on its own, but in this circumstance she woke up and still felt that the room was spinning. Presented to the ED for further evaluation. Denies F/C, headache, CP, SOB, N/V, abdominal pain, dysuria, diarrhea or constipation. Did reportedly recently ? start taking lactulose for h/o cirrhosis but states bowel movements have not been black or bright red in color. Taking all medications as directed. Did also admit to ordering a liver supplement over the internet that she started within the past week. Unsure what it is. Patient has a complicated recent course this started in May 2023 when she was seen at [facility] for melena and abdominal pain and found to have possible pneumoperitoneum and was transferred to [facility], where she was admitted from 06/06-06/22. While there, underwent 2 ex lap surgeries without evidence of perforation. Hospital course at [facility] was complicated by C. difficile infection, COVID-19 infection and splenic infarcts (ALMA from 06/21 without intracardiac m ass, vegetation or thrombus). Discharged to SNF on 06/22/23. Was then admitted from SNF to [facility] from 06/25-06/29 for melena and coffee ground emesis. During admission, underwent transfusion of 4u PRBCs and endoscopy was performed on 06/27 with multiple ulcers noted in the transverse/left/sigmoid colon compatible with ischemia and were biopsied. Hemoglobin remained stable following blood transfusion and no other intervention was done. Was discharged to a SNF and then returned home about a month ago, where she lives alone. Of note, did have a ziopatch monitor ordered by cardiology on 10/15/23 to further assess underlying a fib (seen during previous admission but variable) given recent splenic infarct. Admission Exam Per Admitting Provider General Appearance: WD/WN, vitals as above, NAD, sitting up in bed, pleasant, conversing easily Head: normocephalic, atraumatic Eyes: normal inspection, PERRL, conjunctivae normal, anicteric sclerae ENT: external ear and nose normal, oropharynx with dry mucous membranes Neck: normal visual inspection, trachea midline, no thyromegaly Respiratory: normal respiratory effort, lungs clear to auscultation, no wheeze, rales, rhonchi. No accessory muscle use Cardiovascular: irregular rate and rhythm, no murmur, normal peripheral pulses, no BLE edema. Vessels: no JVD Chest: normal inspection of chest Abdomen/GI: normal bowel sounds, soft, nontender, no hepatosplenomegaly Extremities/Musculoskeletal: no cyanosis or clubbing, extremities motor strength 5/5 Neurologic: PERRL, EOMI, accommodation nl, no face palsy, no dysarthria, CN's II-XI intact bilaterally and moves all extremities Psychiatric: A+Ox3, euthymic affect Skin: no rashes, normal color, warm/dry Principal Diagnosis Metabolic alkalosis, Hyponatremia, HEIDY, dizziness Discharge Exam General Appearance: WD/WN, frail F (chronically ill appearing) in NAD Head: normocephalic, atraumatic Eyes: normal inspection, PERRL, conjunctivae normal, anicteric sclerae ENT: external ear and nose normal Neck: normal visual inspection Respiratory: normal respiratory effort, lungs clear to auscultation, no wheeze, rales, rhonchi. Cardiovascular: rrr, no murmur, normal peripheral pulses, no BLE edema. Vessels: no JVD Chest: normal inspection of chest Abdomen/GI: normal bowel sounds, soft, nontender Extremities/Musculoskeletal: moves extremities Neurologic: PERRL, EOMI, no face palsy, no dysarthria, moves extremities Psychiatric: A+Ox3, euthymic affect Skin: no rashes, normal color, warm/dry Discharge Data Allergies Allergy/AdvReac Type Severity Reaction Status Date / Time glycerin Allergy Intermediate ITCHING, Verified 10/27/23 15:43 BURNING FROM TOPICALS lactose Allergy Intermediate Gastrointestinal Verified 10/27/23 15:43 Upset Penicillins Allergy Intermediate Rash Verified 10/27/23 15:43 adhesive tape AdvReac Intermediate CAN NOT Verified 10/27/23 15:43 TOLERATE BANDAIDS lisinopril AdvReac Intermediate Cough Verified 10/27/23 15:43 monosodium glutamate AdvReac Intermediate EDEMA OF Verified 10/27/23 15:43 HANDS & FEET Consultations 10/27/23 14:39 ED Decision to Admit Stat 10/27/23 15:26 Consult Nephrology Routine Ordered Studies 10/27/23 12:32 CT angio head w con Stat CT angio neck with con Stat 10/27/23 12:34 CT head/brain wo con Stat FINDINGS: CT BRAIN: There is no acute intracranial hemorrhage, midline shift, hydrocephalus, intracranial mass, territorial ischemia or abnormal extra-axial collections. Mild involutional changes with ex vacuo ventriculomegaly. Right-sided gland repair. No abnormal intra-axial or extra-axial enhancement. Mastoid air cells and middle ear cavities are clear. No calvarial fracture. Paranasal sinuses are clear. CT ANGIOGRAM OF THE HEAD AND NECK: Median sternotomy. Atherosclerosis of the thoracic aortic arch. There is patency of the nominate and imaged subclavian arteries. The common carotid arteries are widely patent. Moderate atherosclerotic plaque of the carotid bulbs and proximal cervical segments of the internal carotid arteries results in less than 50% stenosis bilaterally. The bilateral anterior and middle cerebral arteries are also patent. Dominant left vertebral artery. The vertebral arteries are patent bilaterally. The majority of the right vertebral artery terminates into the right PICA. The basilar and posterior cerebral arteries are patent. There is no aneurysm, high-grade stenosis, or proximal branch occlusion identified. Dural sinuses appear patent. Lung apices are clear. Subcentimeter hypodense thyroid nodules. Probable left supraclavicular lipoma measuring approximately 7 cm. 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 Degenerative changes of the cervical spine. IMPRESSION: 1. No acute intracranial abnormality. 2. Atherosclerosis without aneurysm, dissection, high-grade stenosis or arterial occlusion identified. 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 Patient has a complicated recent course this started in May 2023 when she was seen at [facility] for melena and abdominal pain and found to have possible pneumoperitoneum and was transferred to [facility], where she was admitted from 06/06-06/22. While there, underwent 2 ex lap surgeries without evidence of perforation. Hospital course at [facility] was complicated by C. difficile infection, COVID-19 infection and splenic infarcts (ALMA from 06/21 without intracardiac mass, vegetation or thrombus). Discharged to SNF on 06/22/23. Was then admitted from SNF to [facility] in [facility] from 06/25-06/29 for melena and coffee ground emesis. During admission, underwent transfusion of 4u PRBCs and endoscopy was performed on 06/27 with multiple ulcers noted in the transverse/left/sigmoid colon compatible with ischemia and were biopsied. Hemoglobin remained stable following blood transfusion and no other intervention was done. Was discharged to a SNF and then returned home about a month ago, where she lives alone. Vertigo H/o benign paroxysmal positional vertigo due to bilateral vestibular disorder Improved in ED after meclizine, continue home dose CT head, head/neck CTA without acute findings Resp biofire negative vertigo has resolved Acute hyponatremia Initial Na 121 (125-126 when correcting for hyperglycemia) Serum and urine osms consistent with hypotonic hypovolemic hyponatremia Started on NSS 125ml /hr initially Nephrology consulted and following closely Current Na 134 Monitor BMP closely, replete K Per nephrology - no metolazone and at this time does not need torsemide. if she needs diuretic in the future - she can be restarted on torsemide but she should not be restarted on metolazone. Acute hyperglycemia in setting of DM II BSG initially 380 -> 225 with SQ insulin Questionable compliance with insulin in the past Appreciate glycemic pharmacy recs Hold home agents Glycemic consult placed BSG AC HS Acute hypokalemia Initial K 2.3 - recently resumed lactulose for longstanding history of LEYVA cirrhosis; holding until lytes normalize replete and monitor normalized Metabolic alkalosis - seems as severe contraction ABG with pH 7.6, CO2 40 in setting of recently starting lactulose, ? worsening renal disease, ? recent start of liver supplement (obtained on internet), recent GI pathology as detailed above Appreciate nephrology recs Cirrhosis 2/2 LEYVA Diuretics held for now, appears dry clinically on admission. Will need GI follow up given recent hospitalizations Atrial fibrillation A fib with RVR noted during May admission here that spontaneously converted back to sinus with frequent atrial ectopy Of note, did have a ziopatch monitor ordered by cardiology on 10/15/23 to further assess underlying a fib (seen during previous admission but variable) given recent splenic infarct (ALMA from 06/21 at [facility] without intracardiac mass, vegetation or thrombus) Initial EKG with rate controlled A fib, repeat EKG while still in ED with sinus rhythm with aberrant conduction. Continue to monitor on tele, continue Lopressor HFpEF s/p TAVR Recent 2D echo with EF 65% CXR with cardiomegaly without acute process Monitor volume status closely CAD S/P stent Chronic, stable. Continue plavix, statin, beta nayeli CKD III Initial Cr 1.25 -> 1 closer to baseline after IV fluids. Continue to monitor closely Nephrology following H/O colon cancer H/O breast cancer S/P bilateral mastectomy, radiation Mood disorder H/O schizoaffective disorder, bipolar type Home medications recently discontinued during hospitalizations given polypharmacy except for gabapentin TID, trazodone HS Recent epistaxis Reported nosebleed at home before dizziness started; self- packed with rolled tissue paper Started on Rocephin for empiric coverage , pcn allergy on record. DC on keflex DANYELLE CPAP at bedtime Total Time Total Time Spent Total Time Spent (In Minutes): 40 Discharge Plan Discharge Items Patient Disposition: Home - Self-Care Reason For Visit: DIZZINESS, HYPONATREMIA, METABOLIC ALKALOSIS Discharge Diagnosis: Metabolic alkalosis, Hyponatremia, HEIDY, dizziness Activity: Per Instructions section Non-emergency contact: Primary Care Provider Call non-emergency contact if: you have any medication questions and your symptoms worsen Follow-up/Referrals: Gregory Rausch MD [Primary Care Provider] - (Date & Time 11/07/2023 1:40 PM Provider Chandrika Aguirre, Department [facility] ) Diet: Carb Consistent or DM2 Addtl Attending Provider Instructions: Follow up with your primary care doctor within 1 week. DO NOT take metolazone. At this time do not take torsemide either. Have blood work done - BMP within 1 week. At this time do not take lactulose - discuss with your primary care doctor and/or gastroenterology if you should resume lactulose. Finish antibiotic treatment with keflex as prescribed. Recommend taking probiotic while on antibiotics. Pending Studies at Discharge: Yes Studies:: final blood cultx results Stand-Alone Forms: [facility] [employer], Smoking Cessation Medications and DC Order Prescriptions: New cephalexin 500 mg capsule 500 mg PO QID 5 Days Qty: 20 0RF Continued atorvastatin [Lipitor] 40 mg tablet 40 mg PO DAILY clopidogrel [Plavix] 75 mg tablet 75 mg PO DAILY levothyroxine 75 mcg tablet 75 mcg PO DAILY meclizine 25 mg tablet 50 mg PO BID trazodone 100 mg tablet 100 mg PO HS magnesium oxide 400 mg magnesium tablet 400 mg PO DAILY (DME) FreeStyle Keisha 2 [place] Misc See Rx Instructions .Route Qty: 1 0RF Rx Instructions: As directed clindamycin HCl 300 mg Capsule 600 mg PO DIRECTED PRN (Reason: PRIOR TO DENTAL APPT) Rx Instructions: TAKE 30-60 MINUTES PRIOR TO DENTAL APPT.. ammonium lactate 12 % lotion 1 applic TOPICAL DAILY Rx Instructions: APPLY TO FEET aspirin 81 mg Tablet,Delayed Release (Dr/Ec) 81 mg PO DAILY nystatin 100,000 unit/gram Powder 1 applic TOPICAL DIRECTED PRN (Reason: Skin Irritation) multivitamin with minerals Tablet 1 tab PO DAILY fluticasone propionate 50 mcg/actuation [place],Suspension 2 spray INTRANASAL DAILY Rx Instructions: administer into each nostril cranberry extract-vitamin C [Azo Cranberry Plus Vit C] 250-60 mg Capsule 2 cap PO TID melatonin 10 mg Tablet 10 mg PO HS insulin degludec [Tresiba FlexTouch U-200] 200 unit/mL (3 mL) Insulin Pen 30 unit SUBCUT HS Ozempic 2 mg/dose (8 mg/3 mL) pen injector 2 mg SUBCUT WK Rx Instructions: MONDAYS metformin 1,000 mg tablet 1,000 mg PO BID gabapentin 100 mg capsule 100 mg PO TID insulin aspart U-100 [Novolog FlexPen U-100 Insulin] 100 unit/mL (3 mL) Insulin Pen 0 unit subcut TIDM Rx Instructions: 2 UNITS PER 50 WHEN BSG IS OVER 200. metoprolol tartrate 25 mg tablet 25 mg PO BID Gaviscon 80-14.2 mg Tablet,Chewable 1 tab PO DIRECTED PRN (Reason: Gi Upset) Discontinued torsemide 10 mg tablet 10 mg PO DAILY metolazone 2.5 mg tablet 2.5 mg PO 2XWK Rx Instructions: SUNDAY & FRIDAYS, 30 min prior to torsemide dose potassium chloride 10 mEq Tablet,Er Particles/Crystals 10 meq PO BID Discharge Orders: Discharge Order (Routine); Ordered 11/01/23 Ordered By: John Abraham Admission Data Admit Date/Time: 10/27/23 15:28 Attending Provider: John Abraham Admit Provider: John Abraham Primary Care Provider: Gregory Rausch Other Providers: John Abraham; Fidelina Baumann
[2023-11-01 13:49] VITALS: PULSE 91
== END 2023-11-01 15:47 | disposition home or self-care (01) | DRG 641 ==
LOC: ED 11:56 → 2S 15:28

== ENCOUNTER 2023-11-09 21:09 | Inpatient (IN) ==
--- NOTE | 2023-11-09 21:43 | Emergency Department Note ---
History of Present Illness General Chief complaint: Altered Mental Status Stated complaint: ALTERED MENTAL STATUS Time Seen by Provider: 11/09/23 21:33 History of Present Illness This is a 62-year-old female with PMH of DM II (alc 7.5 in 09/15), hypothyroidism, dyslipidemia, history of aortic stenosis status post TAVR in 2017, CAD s/p HOMER to LAD on dual antiplatelet therapy, HFpEF (EF 65%), cirrhosis 2/2 LEYVA, hypertension, paroxysmal A fib, DANYELLE intolerant to CPAP, CKD 3, benign paroxysmal positional vertigo due to bilateral vestibular disorder, history of schizoaffective disorder, h/o breast and colon cancer and other medical problems listed below who presents from home presents for increased confusion and weakness for the past few days. patient states she does not feel confused. Her son thought she was not called EMS. Patient denies chest pain, dyspnea, fever, chills, cough, congestion, abdominal pain, flulike illness. She states she just feels weak. Blood sugar was high and EMS gave her half a liter fluids. Home Medications Medication Instructions Recorded Confirmed Type atorvastatin 40 mg tablet (Lipitor) 40 mg PO DAILY 05/02/19 11/10/23 History clopidogrel 75 mg tablet (Plavix) 75 mg PO DAILY 05/02/19 11/10/23 History levothyroxine 75 mcg tablet 75 mcg PO DAILY 05/02/19 11/10/23 History meclizine 25 mg tablet 50 mg PO BID 05/02/19 11/10/23 History magnesium oxide 400 mg PO DAILY 02/14/23 11/10/23 History trazodone 100 mg tablet 100 mg PO HS Insomnia 02/14/23 11/10/23 History flash glucose scanning reader #1 ea 02/15/23 Rx (FreeStyle Keisha 2 [place]) ammonium lactate 12 % lotion 1 applic topical DAILY 06/03/23 11/10/23 History aspirin 81 mg tablet,delayed 81 mg PO DAILY 06/03/23 11/10/23 History release clindamycin HCl 300 mg capsule 600 mg PO DIRECTED PRN PRIOR TO 06/03/23 11/10/23 History DENTAL APPT cranberry extract-vitamin C 250 2 cap PO TID 06/03/23 11/10/23 History mg-60 mg capsule (Azo Cranberry Plus Vit C) fluticasone propionate 50 2 spray intranasal DAILY 06/03/23 11/10/23 History mcg/actuation nasal spray,suspension insulin degludec 200 unit/mL (3 30 unit subcut HS 06/03/23 11/10/23 History mL) subcutaneous pen (Tresiba FlexTouch U-200 insulin) melatonin 10 mg tablet 10 mg PO HS 06/03/23 11/10/23 History multivitamin with minerals 1 tab PO DAILY 06/03/23 11/10/23 History nystatin 100,000 unit/gram topical 1 applic topical DIRECTED PRN 06/03/23 11/10/23 History powder Skin Irritation semaglutide 2 mg/dose (8 mg/3 mL) 2 mg subcut WK 06/03/23 11/10/23 History subcutaneous pen injector (Ozempic) Al hyd-Mg tr-alg ac-sod bicarb 80 1 tab PO DIRECTED PRN Gi Upset 10/27/23 11/10/23 History mg-14.2 mg chewable tablet (Gaviscon) gabapentin 100 mg capsule 100 mg PO TID 10/27/23 11/10/23 History insulin aspart U-100 100 unit/mL 0 unit subcut TIDM 50 UNITS/DAILY 10/27/23 11/10/23 History (3 mL) subcutaneous pen (Novolog FlexPen U-100 Insulin aspart) metformin 1,000 mg tablet 1,000 mg PO BID 10/27/23 11/10/23 History metoprolol tartrate 25 mg tablet 25 mg PO BID 10/27/23 11/10/23 History Allergies Allergy/AdvReac Type Severity Reaction Status Date / Time glycerin Allergy Intermediate ITCHING, Verified 11/10/23 00:17 BURNING FROM TOPICALS lactose Allergy Intermediate Gastrointestinal Verified 11/10/23 00:17 Upset Penicillins Allergy Intermediate Rash Verified 11/10/23 00:17 adhesive tape AdvReac Intermediate CAN NOT Verified 11/10/23 00:17 TOLERATE BANDAIDS lisinopril AdvReac Intermediate Cough Verified 11/10/23 00:17 monosodium glutamate AdvReac Intermediate EDEMA OF Verified 11/10/23 00:17 HANDS & FEET Past Med/Surg History Medical History Acute hyperglycemia Hypomagnesemia Hypokalemia Intertrigo Chest pain Pulmonary embolism Altered mental status UTI (urinary tract infection) Pleuritic chest pain CKD (chronic kidney disease) stage 3, GFR 30-59 ml/min IDDM (insulin dependent diabetes mellitus) CAD (coronary artery disease) Uterine cancer 2014--sx, no chemo/radiation Breast cancer, right breast 2007--Sx, chemo/radiation Colon cancer 2004--sx, no chemo or radiation Liver cirrhosis non-alcoholic Hypothyroidism Diabetes mellitus, type 2 On anticoagulant therapy Cataract of both eyes Depression Anxiety Aortic valve stenosis Cardiac murmur Follows with Dr. Muniz Hyperlipidemia Hypertension Sleep apnea Cpap History of removal of breast implant "Left " Depression with anxiety DANYELLE (obstructive sleep apnea) Hypothyroidism HTN (hypertension) Heart failure Dyslipidemia Cataract Aortic valvar stenosis Breast cancer Colon cancer Surgical History Presence of stent in coronary artery S/P TAVR (transcatheter aortic valve replacement) History of percutaneous coronary intervention prior to TAVR in order to protect her left main, she also had a 3.5 x 23 millimeter drug-eluting stent placed in the left main/LAD, which was expanded out into the aorta. History of cardiac cath x2--2010 @ [facility] 07/2017 @ [facility]-no stent, follows with Dr. Muniz S/P foot surgery, right "foot was widening" History of section x4 H/O breast surgery L implant infected and was removed History of breast reconstruction Bilt breast after masectomy History of bilateral tubal ligation History of dilatation and curettage History of carpal tunnel release bilt History of colonoscopy History of esophagogastroduodenoscopy (EGD) History of total abdominal hysterectomy and bilateral salpingo-oophorectomy 2014 D/T uterine cancer H/O breast biopsy right--malignant H/O bilateral mastectomy 01/2008--breast cancer History of bowel resection 2004 [place] [facility] [place] d/t Colon Cancer History of appendectomy History of open heart surgery 2011 @ [facility] [place] H/O aortic valve replacement 06/2017 @ [facility] [place] History of hysterectomy with bilateral oophorectomy History of appendectomy History of partial colectomy S/P mastectomy, bilateral H/O colonoscopy Previous section History of carpal tunnel surgery of right wrist History of carpal tunnel surgery of left wrist TAVR 2018 H/O aortic valve replacement #25 Manga aortic valve bioprosthesis placed in 2010, and in 2017 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 On 11/06/2017 she underwent transcatheter aortic valve replacement receiving a 26 mm Hernandez-Bing S3 prosthesis Family History Grandmother Family history of diabetes mellitus maternal Family/Other Family history of diabetes mellitus paternal aunt Father , of premature CAD Coronary heart disease Mother , of premature CAD Coronary heart disease Social History Smoking Status: Unknown if ever smoked Second Hand Exposure: No; Do You Dip or Chew Tobacco: No; Hx Alcohol Use: No Hx Substance Use: No Preferred Language: Citizen Of [place] Communication Ability: Effective Safety And Skill Based Pay Manager Required: No Beliefs That Will Affect Care: None marital status: Single marital status details: has fiance Current Living Situation: Alone Current Living Situation Comment: aid from 8-3 M Feels Safe at Home: Yes Assistive Devices: Cane and Walker Review of Systems A total of 10 systems reviewed and were otherwise negative Physical Exam Vital Signs Vital Signs - 24 hr 11/09/23 21:19 11/09/23 21:27 11/09/23 21:27 Temperature 36.8 C Temperature Source Oral Pulse Rate - Lying Pulse Rate - Sitting Pulse Rate - Standing Pulse Rate 110 H 108 H Pulse Rate [Apical] Respiratory Rate 20 Respiratory Effort / Characteristics Respiratory Depth Normal Respiratory Pattern Regular Blood Pressure - Lying Blood Pressure - Sitting Blood Pressure- Standing Blood Pressure 130/69 Blood Pressure [Right Arm] Blood Pressure Mean 89 Blood Pressure Mean [Right Arm] Blood Pressure Position Sitting Pulse Oximetry 88 L 88 L Oxygen Delivery Method Room Air Nasal Cannula Oxygen Flow Rate 0 Sepsis Recent Fever Within 48 Hours No Sepsis New/Unexplained Change in Mental Status No Sepsis Action Taken by Nursing No Action Required Oxygen Flow Rate - Titration 2 Pulse Oximetry Post Tiitration 95 11/09/23 21:30 11/09/23 22:00 11/09/23 22:18 Temperature Temperature Source Pulse Rate - Lying Pulse Rate - Sitting Pulse Rate - Standing Pulse Rate 108 H 106 H 95 H Pulse Rate [Apical] Respiratory Rate 22 25 H 22 Respiratory Effort / Characteristics Respiratory Depth Respiratory Pattern Blood Pressure - Lying Blood Pressure - Sitting Blood Pressure- Standing Blood Pressure 130/69 131/68 Blood Pressure [Right Arm] Blood Pressure Mean 89 89 Blood Pressure Mean [Right Arm] Blood Pressure Position Pulse Oximetry 95 97 95 Oxygen Delivery Method Nasal Cannula Nasal Cannula Nasal Cannula Oxygen Flow Rate 23 2 2 Sepsis Recent Fever Within 48 Hours Sepsis New/Unexplained Change in Mental Status Sepsis Action Taken by Nursing Oxygen Flow Rate - Titration Pulse Oximetry Post Tiitration 11/09/23 23:06 11/10/23 01:09 11/10/23 01:28 Temperature Temperature Source Pulse Rate - Lying 82 Pulse Rate - Sitting 88 Pulse Rate - Standing 79 Pulse Rate 108 H Pulse Rate [Apical] 108 H Respiratory Rate 22 Respiratory Effort / Characteristics Non-Labored Spontaneous Respiratory Depth Normal Respiratory Pattern Regular Blood Pressure - Lying 136/75 Blood Pressure - Sitting 142/81 H Blood Pressure- Standing 135/79 Blood Pressure Blood Pressure [Right Arm] 132/75 Blood Pressure Mean Blood Pressure Mean [Right Arm] 94 Blood Pressure Position Pulse Oximetry 97 Oxygen Delivery Method Nasal Cannula Oxygen Flow Rate 2 Sepsis Recent Fever Within 48 Hours Sepsis New/Unexplained Change in Mental Status Sepsis Action Taken by Nursing Oxygen Flow Rate - Titration Pulse Oximetry Post Tiitration VITALS: Vitals are noted on the nurse's note and reviewed by myself. Vital signs stable. GENERAL: Pleasant female following commands, in no acute distress, nondiaphoretic, well-developed well-nourished. SKIN: Capillary reflex less than 2 seconds. HEENT: Normocephalic. PERRLA. EOMI. Nares patent. Mucous membranes moist. Neck is supple without nuchal rigidity. HEART: Regular rate and rhythm LUNGS: Clear to auscultation bilaterally without wheezes, rales or rhonchi. No retractions or accessory muscle use. ABDOMEN: Positive bowel sounds x 4. Normal tympanic percussion. Soft, nontender, without masses or organomegaly. Sequeira sign negative. No guarding or rebound tenderness. no CVA tenderness MUSCULOSKELETAL: No gross musculoskeletal defects. NEURO: Patient was alert and oriented to person place and time. Cranial nerves II through XII grossly intact. No pronator drift. Cerebellar exam intact. No focal neurological deficits. Course Administered Medications Discontinued Medications Magnesium Sulfate/Dextrose (Magnesium Sulfate / D5w) 1 gm in 100 mls @ 100 mls/hr IV Q1H EVGENY Stop: 11/10/23 01:38 Last Admin: 11/10/23 01:15 Dose: 100 mls/hr Documented By: Infusion: 11/10/23 01:13 Dose: Infused Documented By: zoo caretaker: 11/10/23 00:13 Dose: 100 mls/hr Documented By: ORLANDO Potassium Chloride (Potassium Chloride 20 Meq/15 Ml Udc) 40 meq PO NOW STA Stop: 11/09/23 23:58 Last Admin: 11/10/23 00:13 Dose: 40 meq Documented By: ORLANDO Medical Decision Making Medical Records Attestation: I reviewed the patient's medical records. Home Medications Current Medication List: was personally reviewed by me Laboratory Data Attestation: I reviewed the patient's lab results. 11/09/23 21:29 11/09/23 21:29 Lab Results 11/09/23 11/09/23 11/09/23 Range/Units 21:21 21:29 23:00 WBC 12.90 H (4.8-10.8) K/ul RBC 4.19 L (4.20-5.40) M/uL Hgb 10.8 L (12.0-16.0) g/dl Hct 31.9 L (37.0-47.0) % MCV 76.1 L (80.0-100.0) fL MCH 25.8 (25.0-34.0) pg MCHC 33.9 (32.0-36.0) g/dL RDW Std Deviation 43.7 (36.4-46.3) fL RDW Coeff of Valerio 16.0 H (11.5-14.5) % Plt Count 131 (130-400) K/uL MPV 10.9 (9.4-12.4) fL Immature Gran % (Auto) 0.4 % Neut % (Auto) 79.5 % Lymph % (Auto) 15.9 % Montgomery % (Auto) 3.8 % Eos % (Auto) 0.1 % Baso % (Auto) 0.3 % Neut # (Auto) 10.26 H (1.40-6.50) K/uL Lymph # (Auto) 2.05 (1.20-3.40) K/uL Montgomery # (Auto) 0.49 (0.11-0.59) K/uL Eos # (Auto) 0.01 (0.00-0.50) K/uL Baso # (Auto) 0.04 (0.00-0.20) K/uL Immature Gran # (Auto) 0.05 (0.01-0.20) K/uL VBG pH (7.36-7.41) VBG pCO2 (38-50) mmHg VBG pO2 mmHg VBG HCO3 mmol/L VBG O2 Saturation % VBG Base Excess mEq/L Sodium 132 L (136-145) mmol/L Potassium 3.1 L (3.5-5.1) mmol/L Chloride 96 L (98-107) mmol/L Carbon Dioxide 26 (21-32) mmol/L Anion Gap 10 (3-11) BUN 11 (6-23) mg/dl Creatinine 1.00 (0.6-1.2) mg/dl Est Cr Clr Drug Dosing 50.8 ml/min Est GFR ( Amer) 69.0 ml/min Est GFR (Non-Af Amer) 59.5 ml/min BUN/Creatinine Ratio 11.0 (10-20) Glucose 290 H (70-99(Fasting)) mg/dl POC Glucose 288 H (70-99) mg/dl Lactate (0.4-2.0) mmol/L Calcium 8.8 (8.6-10.3) mg/dl Magnesium 1.4 L (1.7-2.4) mg/dl Total Bilirubin 0.8 (0.2-1.0) mg/dl AST 13 (13-39) U/L ALT 8 (7-52) U/L Alkaline Phosphatase 80 (34-104) U/L Total Creatine Kinase 15 L (26-192) U/L Troponin I High Sens 8.2 (0-14) pg/ml B-Natriuretic Peptide (0-100) pg/ml Total Protein 6.3 (6.0-8.3) gm/dl Albumin 3.3 L (3.4-5.0) gm/dl Globulin 3.0 (2.5-4.0) gm/dl Albumin/Globulin Ratio 1.1 (0.9-2) TSH 0.990 (0.300-4.500) uIu/ml Stl C. cayetanensis PCR (NotDetected) Stool Rotavirus A PCR (NotDetected) Stl Adenov F 40/41 PCR (NotDetected) Stool Astrovirus (PCR) (NotDetected) Stool Campylobacter PCR (NotDetected) Stl C. diff Tox B Gene (Neg) Stl C.difficile Tox A&B (Negative) Stool Cryptosporidium PCR (NotDetected) Stl E.coli Shiga Tox PCR (NotDetected) Stl Enterotoxigenic E PCR (NotDetected) Stool EPEC (PCR) (NotDetected) Stool EAEC (PCR) (NotDetected) Stl E. histolytica PCR (NotDetected) Stool Giardia Lamblia PCR (NotDetected) Stool Salmonella PCR (NotDetected) Stool Sapovirus (PCR) (NotDetected) Stl P. shigelloides PCR (NotDetected) Stl Shigella/EIEC PCR (NotDetected) St Y.enterocolitica PCR (NotDetected) Stool Vibrio (PCR) (NotDetected) Stl Vibrio cholerae PCR (NotDetected) Stl Norovirus GI/GII PCR (NotDetected) Adenovirus (PCR) Not Detected (NotDetected) B. pertussis DNA (PCR) Not Detected (NotDetected) B.parapertussis DNA PCR Not Detected (NotDetected) C. pneumoniae DNA (PCR) Not Detected (NotDetected) Coronavirus OC43 (PCR) Not Detected (NotDetected) Coronavirus HKU1 (PCR) Not Detected (NotDetected) Coronavirus 229E (PCR) Not Detected (NotDetected) SARS-CoV-2 (PCR) Not Detected (NotDetected) Coronavirus NL63 (PCR) Not Detected (NotDetected) Human Metapneumovir PCR Not Detected (NotDetected) Influenza Type A (PCR) Not Detected (NotDetected) Influenza Type B (PCR) Not Detected (NotDetected) M. pneumoniae (PCR) Not Detected (NotDetected) Parainfluenza 1 (PCR) Not Detected (NotDetected) Parainfluenza 2 (PCR) Not Detected (NotDetected) Parainfluenza 3 (PCR) Not Detected (NotDetected) Parainfluenza 4 (PCR) Not Detected (NotDetected) RSV (PCR) Not Detected (NotDetected) Entero/Rhino (PCR) Not Detected (NotDetected) 11/09/23 11/09/23 11/10/23 Range/Units 23:08 23:54 01:23 WBC (4.8-10.8) K/ul RBC (4.20-5.40) M/uL Hgb (12.0-16.0) g/dl Hct (37.0-47.0) % MCV (80.0-100.0) fL MCH (25.0-34.0) pg MCHC (32.0-36.0) g/dL RDW Std Deviation (36.4-46.3) fL RDW Coeff of Valerio (11.5-14.5) % Plt Count (130-400) K/uL MPV (9.4-12.4) fL Immature Gran % (Auto) % Neut % (Auto) % Lymph % (Auto) % [place] % (Auto) % Eos % (Auto) % Baso % (Auto) % Neut # (Auto) (1.40-6.50) K/uL Lymph # (Auto) (1.20-3.40) K/uL [place] # (Auto) (0.11-0.59) K/uL Eos # (Auto) (0.00-0.50) K/uL Baso # (Auto) (0.00-0.20) K/uL Immature Gran # (Auto) (0.01-0.20) K/uL VBG pH 7.45 H (7.36-7.41) VBG pCO2 46 (38-50) mmHg VBG pO2 33 mmHg VBG HCO3 32 mmol/L VBG O2 Saturation < 60.0 % VBG Base Excess 6.9 mEq/L Sodium (136-145) mmol/L Potassium (3.5-5.1) mmol/L Chloride (98-107) mmol/L Carbon Dioxide (21-32) mmol/L Anion Gap (3-11) BUN (6-23) mg/dl Creatinine (0.6-1.2) mg/dl Est Cr Clr Drug Dosing ml/min Est GFR ( Amer) ml/min Est GFR (Non-Af Amer) ml/min BUN/Creatinine Ratio (10-20) Glucose (70-99(Fasting)) mg/dl POC Glucose (70-99) mg/dl Lactate 2.6 H* 1.9 (0.4-2.0) mmol/L Calcium (8.6-10.3) mg/dl Magnesium (1.7-2.4) mg/dl Total Bilirubin (0.2-1.0) mg/dl AST (13-39) U/L ALT (7-52) U/L Alkaline Phosphatase (34-104) U/L Total Creatine Kinase (26-192) U/L Troponin I High Sens (0-14) pg/ml B-Natriuretic Peptide 100 (0-100) pg/ml Total Protein (6.0-8.3) gm/dl Albumin (3.4-5.0) gm/dl Globulin (2.5-4.0) gm/dl Albumin/Globulin Ratio (0.9-2) TSH (0.300-4.500) uIu/ml Stl C. cayetanensis PCR Not Detected (NotDetected) Stool Rotavirus A PCR Not Detected (NotDetected) Stl Adenov F 40/41 PCR Not Detected (NotDetected) Stool Astrovirus (PCR) Not Detected (NotDetected) Stool Campylobacter PCR Not Detected (NotDetected) Stl C. diff Tox B Gene Positive Cdiff Gene H (Neg) Stl C.difficile Tox A&B Positive Cdiff Toxin A* (Negative) Stool Cryptosporidium PCR Not Detected (NotDetected) Stl E.coli Shiga Tox PCR Not Detected (NotDetected) Stl Enterotoxigenic E PCR Not Detected (NotDetected) Stool EPEC (PCR) Not Detected (NotDetected) Stool EAEC (PCR) Not Detected (NotDetected) Stl E. histolytica PCR Not Detected (NotDetected) Stool Giardia Lamblia PCR Not Detected (NotDetected) Stool Salmonella PCR Not Detected (NotDetected) Stool Sapovirus (PCR) Not Detected (NotDetected) Stl P. shigelloides PCR Not Detected (NotDetected) Stl Shigella/EIEC PCR Not Detected (NotDetected) St Y.enterocolitica PCR Not Detected (NotDetected) Stool Vibrio (PCR) Not Detected (NotDetected) Stl Vibrio cholerae PCR Not Detected (NotDetected) Stl Norovirus GI/GII PCR Not Detected (NotDetected) Adenovirus (PCR) (NotDetected) B. pertussis DNA (PCR) (NotDetected) B.parapertussis DNA PCR (NotDetected) C. pneumoniae DNA (PCR) (NotDetected) Coronavirus OC43 (PCR) (NotDetected) Coronavirus HKU1 (PCR) (NotDetected) Coronavirus 229E (PCR) (NotDetected) SARS-CoV-2 (PCR) (NotDetected) Coronavirus NL63 (PCR) (NotDetected) Human Metapneumovir PCR (NotDetected) Influenza Type A (PCR) (NotDetected) Influenza Type B (PCR) (NotDetected) M. pneumoniae (PCR) (NotDetected) Parainfluenza 1 (PCR) (NotDetected) Parainfluenza 2 (PCR) (NotDetected) Parainfluenza 3 (PCR) (NotDetected) Parainfluenza 4 (PCR) (NotDetected) RSV (PCR) (NotDetected) Entero/Rhino (PCR) (NotDetected) Imaging Data Attestation: I personally reviewed and interpreted this imaging study as follows: Radiologist's Impression: Head CT 11/09/23 21:40 Exam(s): CT HEAD Without Contrast EXAM: CT Head Without Intravenous Contrast CLINICAL HISTORY: Weakness. TECHNIQUE: Axial computed tomography images of the head/brain without intravenous contrast. CTDI is 35 mGy and DLP is 625.8 mGy-cm. Automated exposure control was utilized for the study. A dose lowering technique was utilized adhering to the principles of ALARA. COMPARISON: CT head 10/27/2023 FINDINGS: Brain: No intracranial hemorrhage, mass-effect or midline shift. No abnormal extra axial fluid. No evidence of acute infarct. Mild periventricular white matter hypodensities are most consistent with chronic microangiopathy. Ventricles: Unremarkable. No ventriculomegaly. Bones/joints: Unremarkable. No acute fracture. Soft tissues: Unremarkable. Sinuses: Unremarkable as visualized. No acute sinusitis. Mastoid air cells: Unremarkable as visualized. No mastoid effusion. IMPRESSION: No acute intracranial finding. Electronically signed by: Earline Flynn MD 11/09/23 23:28 PM MDM Narrative Prior records/ancillary studies reviewed and summarized above. Nursing notes reviewed. Additional history obtained from nursing. The patient's history was concerning for weakness. Differential diagnosis: Etiologies such as metabolic, infection, hypo/hyperglycemia, electrolyte abnormalities, cardiac sources, intracerebral event, toxicologic, neurologic, as well as others were entertained. Physical examination: As above. ER treatment provided: IV Lock An order was placed for continuous cardiac monitoring. The monitor shows a rate of 60-100 with a sinus rhythm per my interpretation. Magnesium and potassium were replaced On reassessment the patient felt better. Diagnostics interpretation by me: ECG: Ordered for weakness EKG: Normal sinus, left axis, no acute ST-T wave changes. Impression normal sinus rhythm left axis independent abdomen myself The labs Independently Interpreted by myself revealed mild leukocytosis, mild anemia, low magnesium. Patient has not been able to give a urine sample yet Patient did have diarrhea in the ER and C. difficile and stool culture was sent Positive C. difficile and patient was ordered vancomycin per admitting provider's request Imaging studies: Chest x-ray with no acute consolidation, pneumothorax or free air per my independent interpretation Head CT was negative Consultation: A consultation was placed with the hospitalist. The case was discussed and diagnostics were reviewed. The patient was evaluated in the ER for further treatment. Exam and history seem consistent with increasing weakness with poorly controlled diabetes and diarrhea who is positive for C. difficile. Stool sample was sent. Patient did have diarrhea while in the ER. She was recently hospitalized. Medicine consulted and case discussed. Patient will be admitted to the medical service for further evaluation and workup. By the evaluation outlined above emergent etiologies such as cardiac sources, intracerebral event, toxologic, neurologic, metabolic, as well as others were deemed relatively unlikely. The pt informed about the findings as listed above. All questions were answered and pleased with the treatment. The chart was completed utilizing [employer] Speech voice recognition software. Grammatical errors, random word insertions, pronoun errors, and incomplete sentences are an occassional consequence of this system due to software limitations, ambient noise, and hardware issues. Any formal questions or concerns about the content, text, or information contained within the body of this dictation should be directly addressed to the physician special ed assistant for clarification. Impression & Plan Weakness, Hypomagnesemia, Acute diarrhea, C. difficile diarrhea Discharge Plan Visit Data Chief Complaint: Altered Mental Status Stated Complaint: ALTERED MENTAL STATUS ED Provider: Satish Flores ED Midlevel Provider: Charlene Sorto Discharge Problem: Weakness, Hypomagnesemia, Acute diarrhea, C. difficile diarrhea Patient Disposition: Admitted As Inpatient Condition: Good Forms Stand Alone Forms: My [facility] Prescriptions Prescriptions: No Action atorvastatin [Lipitor] 40 mg tablet 40 mg PO DAILY clopidogrel [Plavix] 75 mg tablet 75 mg PO DAILY levothyroxine 75 mcg tablet 75 mcg PO DAILY meclizine 25 mg tablet 50 mg PO BID trazodone 100 mg tablet 100 mg PO HS magnesium oxide 400 mg magnesium tablet 400 mg PO DAILY (DME) FreeStyle Keisha 2 [place] Misc See Rx Instructions .Route Qty: 1 0RF Rx Instructions: As directed clindamycin HCl 300 mg Capsule 600 mg PO DIRECTED PRN (Reason: PRIOR TO DENTAL APPT) Rx Instructions: TAKE 30-60 MINUTES PRIOR TO DENTAL APPT.. ammonium lactate 12 % lotion 1 applic TOPICAL DAILY Rx Instructions: APPLY TO FEET aspirin 81 mg Tablet,Delayed Release (Dr/Ec) 81 mg PO DAILY nystatin 100,000 unit/gram Powder 1 applic TOPICAL DIRECTED PRN (Reason: Skin Irritation) multivitamin with minerals Tablet 1 tab PO DAILY fluticasone propionate 50 mcg/actuation [place],Suspension 2 spray INTRANASAL DAILY Rx Instructions: administer into each nostril cranberry extract-vitamin C [Azo Cranberry Plus Vit C] 250-60 mg Capsule 2 cap PO TID melatonin 10 mg Tablet 10 mg PO HS insulin degludec [Tresiba FlexTouch U-200] 200 unit/mL (3 mL) Insulin Pen 30 unit SUBCUT HS Ozempic 2 mg/dose (8 mg/3 mL) pen injector 2 mg SUBCUT WK Rx Instructions: MONDAYS metformin 1,000 mg tablet 1,000 mg PO BID gabapentin 100 mg capsule 100 mg PO TID insulin aspart U-100 [Novolog FlexPen U-100 Insulin] 100 unit/mL (3 mL) Insulin Pen 0 unit subcut TIDM Rx Instructions: 2 UNITS PER 50 WHEN BSG IS OVER 200. metoprolol tartrate 25 mg tablet 25 mg PO BID Gaviscon 80-14.2 mg Tablet,Chewable 1 tab PO DIRECTED PRN (Reason: Gi Upset) Referrals Referrals: Gregory Rausch MD [Primary Care Provider] -
[2023-11-09 21:59] LABS: Basophils # (auto) 0.04 K/uL (0.00-0.20); Basophils % (auto) 0.3 %; Eosinophils # (auto) 0.01 K/uL (0.00-0.50); Eosinophils % (auto) 0.1 %; Hematocrit (blood only) 31.9 % (37.0-47.0); Hemoglobin 10.8 g/dl (12.0-16.0); Immature Granulocytes # (auto) 0.05 K/uL (0.01-0.20); Immature Granulocytes % (auto) 0.4 %; Lymphocytes # (auto) 2.05 K/uL (1.20-3.40); Lymphocytes % (auto) 15.9 %; Mean Corpuscular Hemoglobin 25.8 pg (25.0-34.0); Mean Corpuscular Hgb Conc 33.9 g/dL (32.0-36.0); Mean Corpuscular Volume 76.1 fL (80.0-100.0); Mean Platelet Volume 10.9 fL (9.4-12.4); Monocytes # (auto) 0.49 K/uL (0.11-0.59); Monocytes % (auto) 3.8 %; Neutrophils # (auto) 10.26 K/uL (1.40-6.50); Neutrophils % (auto) 79.5 %; Platelet Count 131 K/uL (130-400); RDW Standard Deviation 43.7 fL (36.4-46.3); Red Blood Count 4.19 M/uL (4.20-5.40)
[2023-11-09 22:15] LABS: Albumin Globulin Ratio 1.1 (0.9-2); Albumin Level 3.3 gm/dl (3.4-5.0); Bilirubin,Total 0.8 mg/dl (0.2-1.0); Calcium 8.8 mg/dl (8.6-10.3); Creatinine Clr Calc Pharmacy 50.8 ml/min; Est GFR (Non-African American) 59.5 ml/min; Magnesium 1.4 mg/dl (1.7-2.4); Potassium 3.1 mmol/L (3.5-5.1); Total Protein 6.3 gm/dl (6.0-8.3)
[2023-11-09 22:22] LABS: Troponin I High Sensitivity 8.2 pg/ml (0-14)
[2023-11-09 22:31] LABS: Thyroid Stimulating Hormone 0.99 uIu/ml (0.300-4.500)
[2023-11-09 23:21] LABS: Base Excess VBG 6.9 mEq/L; HCO3 VBG 32 mmol/L; Oxygen Saturation VBG < 60.0 %; PCO2 VBG 46 mmHg (38-50); PO2 VBG 33 mmHg; pH VBG 7.45 (7.36-7.41)
--- NOTE | 2023-11-09 23:29 | CT Scan Report ---
Exam(s): CT HEAD Without Contrast EXAM: CT Head Without Intravenous Contrast CLINICAL HISTORY: Weakness. TECHNIQUE: Axial computed tomography images of the head/brain without intravenous contrast. CTDI is 35 mGy and DLP is 625.8 mGy-cm. Automated exposure control was utilized for the study. A dose lowering technique was utilized adhering to the principles of ALARA. COMPARISON: CT head 10/27/2023 FINDINGS: Brain: No intracranial hemorrhage, mass-effect or midline shift. No abnormal extra axial fluid. No evidence of acute infarct. Mild periventricular white matter hypodensities are most consistent with chronic microangiopathy. Ventricles: Unremarkable. No ventriculomegaly. Bones/joints: Unremarkable. No acute fracture. Soft tissues: Unremarkable. Sinuses: Unremarkable as visualized. No acute sinusitis. Mastoid air cells: Unremarkable as visualized. No mastoid effusion. IMPRESSION: No acute intracranial finding. Electronically signed by: Earline Flynn MD 11/09/23 23:28 PM
--- NOTE | 2023-11-09 23:46 | Emergency Department Note ---
ED Visit Note Staff note: I have reviewed the Patients chart and have discussed this case with my PA. I generally agree with the ED note and findings. .
[2023-11-10 00:03] LABS: Adenovirus PCR Not Detected (NotDetected); Bordetella parapertussis PCR Not Detected (NotDetected); Bordetella pertussis PCR Not Detected (NotDetected); Chlamydia pneumoniae PCR Not Detected (NotDetected); Coronavirus 229E PCR Not Detected (NotDetected); Coronavirus CoV-2 (COVID19)PCR Not Detected (NotDetected); Coronavirus HKU1 PCR Not Detected (NotDetected); Coronavirus NL63 PCR Not Detected (NotDetected); Coronavirus OC43PCR Not Detected (NotDetected); Human Metapneumovirus PCR Not Detected (NotDetected); Influenza A PCR Not Detected (NotDetected); Influenza B PCR Not Detected (NotDetected); Mycoplasma pneumoniae PCR Not Detected (NotDetected); Parainfluenza Virus 1 PCR Not Detected (NotDetected); Parainfluenza Virus 2 PCR Not Detected (NotDetected); Parainfluenza Virus 3 PCR Not Detected (NotDetected); Parainfluenza Virus 4 PCR Not Detected (NotDetected); Respiratory Syncytial VirusPCR Not Detected (NotDetected); Rhinovirus/Enterovirus PCR Not Detected (NotDetected)
[2023-11-10] MEDS: POTASSIUM CHLORIDE 20 MEQ/15 ML UDC PO STA (00:13)
[2023-11-10] MEDS: MAGNESIUM SULFATE / D5W 1 GM/100 ML BAG IV SCH (00:13)
[2023-11-10 01:32] LABS: Adenovirus F 40/41 PCR Not Detected (NotDetected); Astrovirus PCR Not Detected (NotDetected); Campylobacter PCR Not Detected (NotDetected); Cryptosporidium PCR Not Detected (NotDetected); Cyclospora cayetanensis PCR Not Detected (NotDetected); Entamoeba histolytica PCR Not Detected (NotDetected); Enteroaggregative E.coli(EAEC) Not Detected (NotDetected); Enteropathogenic E.coli (EPEC) Not Detected (NotDetected); Enterotoxigenic E.coli (ETEC) Not Detected (NotDetected); Giardia lamblia PCR Not Detected (NotDetected); Norovirus GI/GII PCR Not Detected (NotDetected); Plesiomonas shigelloides PCR Not Detected (NotDetected); Rotavirus A PCR Not Detected (NotDetected); Salmonella PCR Not Detected (NotDetected); Sapovirus PCR Not Detected (NotDetected); Shiga-like Toxin E.coli (STEC) Not Detected (NotDetected); Shigella/Enteroinvasive E.coli Not Detected (NotDetected); Vibrio cholerae PCR Not Detected (NotDetected); Vibrio species PCR Not Detected (NotDetected); Yersinia enterocolitica PCR Not Detected (NotDetected)
--- NOTE | 2023-11-10 01:52 | History & Physical Report ---
Date of Service November 10, 2023 Assessment & Plan (1) Weakness: Plan: 62-year-old female with past medical history significant for type 2 diabetes, hypothyroidism, hyperlipidemia, aortic stenosis s/p TAVR in 2017, CAD s/p drug- eluting stent to LAD, heart failure with preserved ejection fraction, cirrhosis secondary to [place], hypertension, questionable paroxysmal atrial fibrillation, obstructive sleep apnea intolerant to CPAP, CKD stage III, benign paroxysmal positional vertigo due to bilateral vestibular disorder, history of schizoaffective disorder, history of breast and colon cancer, history of GI bleed, history of C. difficile infection, history of COVID, history of splenic infarcts, recent ZIO showing no definitive atrial fibrillation and was recently in the hospital for vertigo and hyponatremia and hyperglycemia and hypokalemia and did okay and discharged to home comes because of weakness and also family felt she was somewhat confused. Patient is currently alert and oriented x 3. States she felt dizzy. Feeling weak. Daughter advised her to go to the hospital. Has headaches. Vision is blurry. No runny nose or sore throat. No cough. No fevers. No chest pain or shortness of breath. Currently no nausea. No abdominal pain. Having normal bowel and bladder movements as per patient. Ambulates with walker. Eating okay. Lives alone. Son's lives close by. Hemodynamics are okay. Weakness Possible confusion C. difficile came back positive Awaiting urinalysis Starting on p.o. vancomycin Gentle fluids normal saline 50 mill per hour for 1 L Lactic acid 2.6 but repeat is 1.9 Close monitor PT OT when stable Diabetes Continue home long-acting insulin Sliding scale Will monitor CAD s/p stent On aspirin, statin, Plavix and beta-nayeli History of benign paroxysmal positional vertigo due to bilateral vestibular disorder On meclizine Hypothyroidism On Synthyroid History of heart failure with preserved ejection fraction Aortic stenosis s/p TAVR Monitor for volume overload History of colon cancer History of breast cancer S/p bilateral mastectomy, radiation History of schizoaffective disorder bipolar type On trazodone Seems recently medication discontinued because of polypharmacy DANYELLE CPAP nightly CKD stage III Creatinine 1.0 Will monitor Hypokalemia and hypomagnesia Replaced Follow repeat labs Cirrhosis secondary to Sprague Getting gentle fluids Not on diuretics Follow ammonia levels Monitor for volume overload Possible A-fib Zio patch no definitive A-fib Continue metoprolol DVT prophylaxis Heparin subcu Disposition Telemetry Full code History of Present Illness Chief Complaint: Weakness. Questionable confusion Primary Care Provider: Gregory Rausch MD 62-year-old female with past medical history significant for type 2 diabetes, hypothyroidism, hyperlipidemia, aortic stenosis s/p TAVR in 2017, CAD s/p drug- eluting stent to LAD, heart failure with preserved ejection fraction, cirrhosis secondary to [place], hypertension, questionable paroxysmal atrial fibrillation, obstructive sleep apnea intolerant to CPAP, CKD stage III, benign paroxysmal positional vertigo due to bilateral vestibular disorder, history of schizoaffective disorder, history of breast and colon cancer, history of GI bleed, history of C. difficile infection, history of COVID, history of splenic infarcts, recent ZIO showing no definitive atrial fibrillation and was recently in the hospital for vertigo and hyponatremia and hyperglycemia and hypokalemia and did okay and discharged to home comes because of weakness and also family felt she was somewhat confused. Patient is currently alert and oriented x 3. States she felt dizzy. Feeling weak. Daughter advised her to go to the hospital. Has headaches. Vision is blurry. No runny nose or sore throat. No cough. No fevers. No chest pain or shortness of breath. Currently no nausea. No abdominal pain. Having normal bowel and bladder movements as per patient. Ambulates with walker. Eating okay. Lives alone. Son's lives close by. Hemodynamics are okay. Past medical history. As mentioned above Past surgical history. Bilateral carpal tunnel surgery. . Colonoscopy. Left and right heart cardiac cath. EGD. Flexible esophagoscopy. Excision of breast lesion. Exploration of abdomen. Hysteroscopy with biopsy. Injection of eye drug. Diagnostic laparoscopy. Complete simple mastectomy. Appendectomy. Partial colectomy. Removal of breast implant. Removal of oviducts. Complete axillary lymphadenectomy. Repair of incisional hernia. Replace aortic valve percutaneous. Right revision of ulnar nerve at elbow. Sigmoidoscopy. Total abdominal hysterectomy with removal of tubes. Social history. Lives alone. No smoking. No alcohol use. No drug use. Family history. Father had SD. Brother had CABG. Sinus coarctation of aorta. Brother had SD at age 31 and HIV positive. Sister had stroke. Allergies Allergy/AdvReac Type Severity Reaction Status Date / Time glycerin Allergy Intermediate ITCHING, Verified 11/10/23 00:17 BURNING FROM TOPICALS lactose Allergy Intermediate Gastrointestinal Verified 11/10/23 00:17 Upset Penicillins Allergy Intermediate Rash Verified 11/10/23 00:17 adhesive tape AdvReac Intermediate CAN NOT Verified 11/10/23 00:17 TOLERATE BANDAIDS lisinopril AdvReac Intermediate Cough Verified 11/10/23 00:17 monosodium glutamate AdvReac Intermediate EDEMA OF Verified 11/10/23 00:17 HANDS & FEET Home Medications Medication Instructions Recorded Confirmed Type atorvastatin 40 mg tablet (Lipitor) 40 mg PO DAILY 05/02/19 11/10/23 History clopidogrel 75 mg tablet (Plavix) 75 mg PO DAILY 05/02/19 11/10/23 History levothyroxine 75 mcg tablet 75 mcg PO DAILY 05/02/19 11/10/23 History meclizine 25 mg tablet 50 mg PO BID 05/02/19 11/10/23 History magnesium oxide 400 mg PO DAILY 02/14/23 11/10/23 History trazodone 100 mg tablet 100 mg PO HS Insomnia 02/14/23 11/10/23 History flash glucose scanning reader #1 ea 02/15/23 Rx (Anpro21 Keisha 2 [place]) ammonium lactate 12 % lotion 1 applic topical DAILY 06/03/23 11/10/23 History aspirin 81 mg tablet,delayed 81 mg PO DAILY 06/03/23 11/10/23 History release clindamycin HCl 300 mg capsule 600 mg PO DIRECTED PRN PRIOR TO 06/03/23 11/10/23 History DENTAL APPT cranberry extract-vitamin C 250 2 cap PO TID 06/03/23 11/10/23 History mg-60 mg capsule (Azo Cranberry Plus Vit C) fluticasone propionate 50 2 spray intranasal DAILY 06/03/23 11/10/23 History mcg/actuation nasal spray,suspension insulin degludec 200 unit/mL (3 30 unit subcut HS 06/03/23 11/10/23 History mL) subcutaneous pen (Tresiba FlexTouch U-200 insulin) melatonin 10 mg tablet 10 mg PO HS 06/03/23 11/10/23 History multivitamin with minerals 1 tab PO DAILY 06/03/23 11/10/23 History nystatin 100,000 unit/gram topical 1 applic topical DIRECTED PRN 06/03/23 11/10/23 History powder Skin Irritation semaglutide 2 mg/dose (8 mg/3 mL) 2 mg subcut WK 06/03/23 11/10/23 History subcutaneous pen injector (Ozempic) Al hyd-Mg tr-alg ac-sod bicarb 80 1 tab PO DIRECTED PRN Gi Upset 10/27/23 11/10/23 History mg-14.2 mg chewable tablet (Gaviscon) gabapentin 100 mg capsule 100 mg PO TID 10/27/23 11/10/23 History insulin aspart U-100 100 unit/mL 0 unit subcut TIDM 50 UNITS/DAILY 10/27/23 11/10/23 History (3 mL) subcutaneous pen (Novolog FlexPen U-100 Insulin aspart) metformin 1,000 mg tablet 1,000 mg PO BID 10/27/23 11/10/23 History metoprolol tartrate 25 mg tablet 25 mg PO BID 10/27/23 11/10/23 History Past Med/Surg History Medical History Acute hyperglycemia Hypomagnesemia Hypokalemia Intertrigo Chest pain Pulmonary embolism Altered mental status UTI (urinary tract infection) Pleuritic chest pain CKD (chronic kidney disease) stage 3, GFR 30-59 ml/min IDDM (insulin dependent diabetes mellitus) CAD (coronary artery disease) Uterine cancer 2014--sx, no chemo/radiation Breast cancer, right breast 2007--Sx, chemo/radiation Colon cancer 2004--sx, no chemo or radiation Liver cirrhosis non-alcoholic Hypothyroidism Diabetes mellitus, type 2 On anticoagulant therapy Cataract of both eyes Depression Anxiety Aortic valve stenosis Cardiac murmur Follows with Dr. Muniz Hyperlipidemia Hypertension Sleep apnea Cpap History of removal of breast implant "Left " Depression with anxiety DANYELLE (obstructive sleep apnea) Hypothyroidism HTN (hypertension) Heart failure Dyslipidemia Cataract Aortic valvar stenosis Breast cancer Colon cancer Surgical History Presence of stent in coronary artery S/P TAVR (transcatheter aortic valve replacement) History of percutaneous coronary intervention prior to TAVR in order to protect her left main, she also had a 3.5 x 23 millimeter drug-eluting stent placed in the left main/LAD, which was expanded out into the aorta. History of cardiac cath x2--2010 @ [facility] 07/2017 @ [facility]-no stent, follows with Dr. Muniz S/P foot surgery, right "foot was widening" History of section x4 H/O breast surgery L implant infected and was removed History of breast reconstruction Bilt breast after masectomy History of bilateral tubal ligation History of dilatation and curettage History of carpal tunnel release bilt History of colonoscopy History of esophagogastroduodenoscopy (EGD) History of total abdominal hysterectomy and bilateral salpingo-oophorectomy 2014 D/T uterine cancer H/O breast biopsy right--malignant H/O bilateral mastectomy 01/2008--breast cancer History of bowel resection 2004 @ [facility] [place] d/t Colon Cancer History of appendectomy History of open heart surgery 2011 @ [facility] [place] H/O aortic valve replacement 06/2017 @ [facility] [place] History of hysterectomy with bilateral oophorectomy History of appendectomy History of partial colectomy S/P mastectomy, bilateral H/O colonoscopy Previous section History of carpal tunnel surgery of right wrist History of carpal tunnel surgery of left wrist TAVR 2017 H/O aortic valve replacement #25 Manga aortic valve bioprosthesis placed in 2010, and 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 On 11/06/2017 she underwent transcatheter aortic valve replacement receiving a 26 mm Hernandez-Bing S3 prosthesis Family History Grandmother Family history of diabetes mellitus maternal Family/Other Family history of diabetes mellitus paternal aunt Father , of premature CAD Coronary heart disease Mother , of premature CAD Coronary heart disease Social History Smoking Status: Never smoker Second Hand Exposure: No; Do You Dip or Chew Tobacco: No; Hx Alcohol Use: No Hx Substance Use: No Preferred Language: Ukrainian Communication Ability: Effective Paratransit Driver Required: No Beliefs That Will Affect Care: None marital status: Single marital status details: has fiance Current Living Situation: Alone Current Living Situation Comment: aid from 8-3 M-F Feels Safe at Home: Yes Assistive Devices: Cane and Walker Review of Systems Review of Systems: All systems reviewed & are unremarkable except as noted in HPI & below Physical Exam Physical Exam: General- Not in distress Head- atraumatic Eyes- PERRL. ENT- oropharynx clear Neck- supple, no JVD. Lungs- clear to auscultation no wheezing or crackles. Heart- regular rhythm; no murmur, no gallop. Abdomen- normal bowel sounds, soft, nontender, no distension. Extremities- no pretibial edema, no erythema seen. Neuro- alert, oriented PERRL,no facial palsy; no dysarthria; moves extremities. Skin- warm & dry Results & Data Results & Data Vital Signs (Past 12 Hours) Vital Signs Temp Pulse Pulse Resp BP BP Pulse Ox 11/10/23 01:28 108 H 22 132/75 97 11/10/23 01:09 108 H 11/09/23 22:18 95 H 22 95 11/09/23 22:00 106 H 25 H 131/68 97 11/09/23 21:30 108 H 22 130/69 95 11/09/23 21:27 88 L 11/09/23 21:27 36.8 C 108 H 20 130/69 88 L 11/09/23 21:19 110 H O2 Del Method O2 Flow Rate 11/10/23 01:28 Nasal Cannula 2 11/10/23 01:09 11/09/23 22:18 Nasal Cannula 2 11/09/23 22:00 Nasal Cannula 2 11/09/23 21:30 Nasal Cannula 23 11/09/23 21:27 Nasal Cannula 0 11/09/23 21:27 Room Air 11/09/23 21:19 Diagnostic Findings Laboratory Results WBC 12.90 K/ul (4.8-10.8) H 11/09/23 21:29 RBC 4.19 M/uL (4.20-5.40) L 11/09/23 21:29 Hgb 10.8 g/dl (12.0-16.0) L 11/09/23 21: Hct 31.9 % (37.0-47.0) L 11/09/23 21: MCV 76.1 fL (80.0-100.0) L 11/09/23 21:29 MCH 25.8 pg (25.0-34.0) 11/09/23 21: MCHC 33.9 g/dL (32.0-36.0) 11/09/23 21: RDW Std Deviation 43.7 fL (36.4-46.3) 11/09/23: RDW Coeff of Valerio 16.0 % (11.5-14.5) H 11/09/23: Plt Count 131 K/uL (130-400) 11/09/23: MPV 10.9 fL (9.4-12.4) 11/09/23: Immature Gran % (Auto) 0.4 % 11/09/23: Neut % (Auto) 79.5 % 11/09/23: Lymph % (Auto) 15.9 % 11/09/23: Rabun % (Auto) 3.8 % 11/09/23: Eos % (Auto) 0.1 % 11/09/23: Baso % (Auto) 0.3 % 11/09/23: Neut # (Auto) 10.26 K/uL (1.40-6.50) H 11/09/23: Lymph # (Auto) 2.05 K/uL (1.20-3.40) 11/09/23: Rabun # (Auto) 0.49 K/uL (0.11-0.59) 11/09/23: Eos # (Auto) 0.01 K/uL (0.00-0.50) 11/09/23: Baso # (Auto) 0.04 K/uL (0.00-0.20) 11/09/23: Immature Gran # (Auto) 0.05 K/uL (0.01-0.20) 11/09/23: VBG pH 7.45 (7.36-7.41) H 11/09/23 23:08 VBG pCO2 46 mmHg (38-50) 11/09/23 23: VBG pO2 33 mmHg 11/09/23 23:08 VBG HCO3 32 mmol/L 11/09/23 23: VBG O2 Saturation < 60.0 % 11/09/23 23:08 VBG Base Excess 6.9 mEq/L 11/09/23 23: Sodium 132 mmol/L (136-145) L 11/09/23:29 Potassium 3.1 mmol/L (3.5-5.1) L 11/09/23 21: Chloride 96 mmol/L (98-107) L 11/09/23 21: Carbon Dioxide 26 mmol/L (21-32) 11/09/23 21: Anion Gap 10 (3-11) 11/09/23 21: BUN 11 mg/dl (6-23) 11/09/23 21: Creatinine 1.00 mg/dl (0.6-1.2) 11/09/23: Est Cr Clr Drug Dosing 50.8 ml/min 11/09/23 21: Est GFR ( Amer) 69.0 ml/min 11/09/23 21: Est GFR (Non-Af Amer) 59.5 ml/min 11/09/23: BUN/Creatinine Ratio 11.0 (10-20) 11/09/23 21: Glucose 290 mg/dl (70-99(Fasting)) H 11/09/23: POC Glucose 288 mg/dl (70-99) H 11/09/23 21: Lactate 1.9 mmol/L (0.4-2.0) 11/10/23 01:23 Calcium 8.8 mg/dl (8.6-10.3) 11/09/23: Magnesium 1.4 mg/dl (1.7-2.4) L 11/09/23: Total Bilirubin 0.8 mg/dl (0.2-1.0) 11/09/23: AST 13 U/L (13-39) 11/09/23 21: ALT 8 U/L (7-52) 11/09/23 21: Alkaline Phosphatase 80 U/L (34-104) 11/09/23 21: Total Creatine Kinase 15 U/L (26-192) L 11/09/23 21: Troponin I High Sens 8.2 pg/ml (0-14) 11/09/23 21: B-Natriuretic Peptide 100 pg/ml (0-100) 11/09/23 23:08 Total Protein 6.3 gm/dl (6.0-8.3) 11/09/23 21: Albumin 3.3 gm/dl (3.4-5.0) L 11/09/23 21:29 Globulin 3.0 gm/dl (2.5-4.0) 11/09/23 21:29 Albumin/Globulin Ratio 1.1 (0.9-2) 11/09/23 21: TSH 0.990 uIu/ml (0.300-4.500) 11/09/23 21:29 Stl C. cayetanensis PCR Not Detected (NotDetected) 11/09/23 23:54 Stool Rotavirus A PCR Not Detected (NotDetected) 11/09/23 23:54 Stl Adenov F 40/41 PCR Not Detected (NotDetected) 11/09/23 23:54 Stool Astrovirus (PCR) Not Detected (NotDetected) 11/09/23 23:54 Stool Campylobacter PCR Not Detected (NotDetected) 11/09/23 23:54 Stl C. diff Tox B Gene Positive Cdiff Gene (Neg) H 11/09/23 23:54 Stl C.difficile Tox A&B Positive Cdiff Toxin (Negative) A* 11/09/23 23:54 Stool Cryptosporidium PCR Not Detected (NotDetected) 11/09/23 23:54 Stl E.coli Shiga Tox PCR Not Detected (NotDetected) 11/09/23 23:54 Stl Enterotoxigenic E PCR Not Detected (NotDetected) 11/09/23 23:54 Stool EPEC (PCR) Not Detected (NotDetected) 11/09/23 23:54 Stool EAEC (PCR) Not Detected (NotDetected) 11/09/23 23:54 Stl E. histolytica PCR Not Detected (NotDetected) 11/09/23 23:54 Stool Giardia Lamblia PCR Not Detected (NotDetected) 11/09/23 23:54 Stool Salmonella PCR Not Detected (NotDetected) 11/09/23 23:54 Stool Sapovirus (PCR) Not Detected (NotDetected) 11/09/23 23:54 Stl P. shigelloides PCR Not Detected (NotDetected) 11/09/23 23:54 Stl Shigella/EIEC PCR Not Detected (NotDetected) 11/09/23 23:54 St Y.enterocolitica PCR Not Detected (NotDetected) 11/09/23 23:54 Stool Vibrio (PCR) Not Detected (NotDetected) 11/09/23 23:54 Stl Vibrio cholerae PCR Not Detected (NotDetected) 11/09/23 23:54 Stl Norovirus GI/GII PCR Not Detected (NotDetected) 11/09/23 23:54 Adenovirus (PCR) Not Detected (NotDetected) 11/09/23 23:00 B. pertussis DNA (PCR) Not Detected (NotDetected) 11/09/23 23:00 B.parapertussis DNA PCR Not Detected (NotDetected) 11/09/23 23:00 C. pneumoniae DNA (PCR) Not Detected (NotDetected) 11/09/23 23:00 Coronavirus OC43 (PCR) Not Detected (NotDetected) 11/09/23 23:00 Coronavirus HKU1 (PCR) Not Detected (NotDetected) 11/09/23 23:00 Coronavirus 229E (PCR) Not Detected (NotDetected) 11/09/23 23:00 SARS-CoV-2 (PCR) Not Detected (NotDetected) 11/09/23 23:00 Coronavirus NL63 (PCR) Not Detected (NotDetected) 11/09/23 23:00 Human Metapneumovir PCR Not Detected (NotDetected) 11/09/23 23:00 Influenza Type A (PCR) Not Detected (NotDetected) 11/09/23 23:00 Influenza Type B (PCR) Not Detected (NotDetected) 11/09/23 23:00 M. pneumoniae (PCR) Not Detected (NotDetected) 11/09/23 23:00 Parainfluenza 1 (PCR) Not Detected (NotDetected) 11/09/23 23:00 Parainfluenza 2 (PCR) Not Detected (NotDetected) 11/09/23 23:00 Parainfluenza 3 (PCR) Not Detected (NotDetected) 11/09/23 23:00 Parainfluenza 4 (PCR) Not Detected (NotDetected) 11/09/23 23:00 RSV (PCR) Not Detected (NotDetected) 11/09/23 23:00 Entero/Rhino (PCR) Not Detected (NotDetected) 11/09/23 23:[address] 11/09/23 21:40 Exam(s): CT HEAD Without Contrast EXAM: CT Head Without Intravenous Contrast CLINICAL HISTORY: Weakness. TECHNIQUE: Axial computed tomography images of the head/brain without intravenous contrast. CTDI is 35 mGy and DLP is 625.8 mGy-cm. Automated exposure control was utilized for the study. A dose lowering technique was utilized adhering to the principles of ALARA. COMPARISON: CT head 10/27/2023 FINDINGS: Brain: No intracranial hemorrhage, mass-effect or midline shift. No abnormal extra axial fluid. No evidence of acute infarct. Mild periventricular white matter hypodensities are most consistent with chronic microangiopathy. Ventricles: Unremarkable. No ventriculomegaly. Bones/joints: Unremarkable. No acute fracture. Soft tissues: Unremarkable. Sinuses: Unremarkable as visualized. No acute sinusitis. Mastoid air cells: Unremarkable as visualized. No mastoid effusion. IMPRESSION: No acute intracranial finding. Electronically signed by: Earline Flynn MD 11/09/23 23:28 PM ECG Additional Comments: ECG. Sinus tachycardia with PACs at a rate of 108. Left axis deviation. Pulmonary disease pattern. Code Status & VTE Plan VTE Prophylaxis Plan VTE Prophylaxis will be ordered: Yes
[2023-11-10 01:55] LABS: Cdiff Toxin B Gene (2yr or >) Positive Cdiff Gene (Neg)
[2023-11-10 01:56] LABS: Cdiff Antigen Positive
[2023-11-10 01:58] LABS: Cdiff Toxin A+B Positive Cdiff Toxin (Negative)
[2023-11-10] MEDS ORDERED: GLUCOSE 10 TAB/TUBE PO PRN (03:06)
[2023-11-10] MEDS ORDERED: CARBOHYDRATES FOR HYPOGLYCEMIA PO PRN (03:06)
[2023-11-10] MEDS ORDERED: NITROGLYCERIN SL 0.4 MG/TAB TAB SL PRN (03:06)
[2023-11-10] MEDS ORDERED: GLUCAGON FOR INJ 1 MG VIAL SQ PRN (03:06)
[2023-11-10] MEDS ORDERED: DEXTROSE 50% 50 ML SYRINGE IV PRN (03:06)
[2023-11-10] MEDS ORDERED: GLUCOSE 40% GEL 15 GM TUBE PO PRN (03:06)
[2023-11-10] MEDS: CHERRY SYRUP 5 ML UDP PO STA (03:16)
[2023-11-10] MEDS: VANCOMYCIN HCL 125 MG/2.5ML SOLN PO STA (03:16)
[2023-11-10] MEDS: SODIUM CHLORIDE 0.9% 1,000 ML IV SCH (03:22)
[2023-11-10] MEDS ORDERED: LANTUS PER UNIT CHARGE SQ SCH (04:45)
[2023-11-10] MEDS: CHERRY SYRUP 5 ML UDP PO SCH (06:08)
[2023-11-10] MEDS: VANCOMYCIN HCL 125 MG/2.5ML SOLN PO SCH (06:08)
[2023-11-10] MEDS: LEVOTHYROXINE SODIUM 75 MCG TABLET PO SCH (06:09)
[2023-11-10] MEDS ORDERED: Nursing to Pharmacy Communication SCH (06:15)
[2023-11-10 07:21] LABS: Basophils # (auto) 0.02 K/uL (0.00-0.20); Basophils % (auto) 0.2 %; Hematocrit (blood only) 33.8 % (37.0-47.0); Hemoglobin 11.2 g/dl (12.0-16.0); Immature Granulocytes # (auto) 0.05 K/uL (0.01-0.20); Immature Granulocytes % (auto) 0.5 %; Lymphocytes # (auto) 1.56 K/uL (1.20-3.40); Lymphocytes % (auto) 14.5 %; Mean Corpuscular Hemoglobin 25.9 pg (25.0-34.0); Mean Corpuscular Hgb Conc 33.1 g/dL (32.0-36.0); Mean Corpuscular Volume 78.1 fL (80.0-100.0); Mean Platelet Volume 10.2 fL (9.4-12.4); Monocytes % (auto) 4.6 %; Neutrophils # (auto) 8.66 K/uL (1.40-6.50); Neutrophils % (auto) 80.2 %; Platelet Count 110 K/uL (130-400); RDW Standard Deviation 45.3 fL (36.4-46.3); Red Blood Count 4.33 M/uL (4.20-5.40); White Blood Count 10.79 K/ul (4.8-10.8)
[2023-11-10 07:43] LABS: Albumin Level 3.3 gm/dl (3.4-5.0); BUN Creatinine Ratio 10.2 (10-20); Bilirubin Direct 0.2 mg/dl (0-0.2); Bilirubin,Total 0.7 mg/dl (0.2-1.0); Calcium 8.6 mg/dl (8.6-10.3); Creatinine Clr Calc Pharmacy 57.7 ml/min; Est GFR (African American) 80.5 ml/min; Est GFR (Non-African American) 69.4 ml/min; Magnesium 1.8 mg/dl (1.7-2.4); Potassium 3.4 mmol/L (3.5-5.1); Total Protein 6.4 gm/dl (6.0-8.3)
--- NOTE | 2023-11-10 07:53 | XRay Report ---
XR chest 1V portable HISTORY: 62 years-old Female weakness acute weakness COMPARISON: 10/27/2023 TECHNIQUE: AP view the chest FINDINGS: Limited exam secondary to positioning. Cardiac silhouette is enlarged. Median sternotomy with cardiac valvular prosthesis. No pneumothorax or large pleural effusion. There is persistent blunting of the right lateral costophrenic angle. Mild chronic interstitial coarsening with left basilar atelectasis. Left breast implant. Degenerative changes of the shoulders and spine with rotator cuff calcific tend inosis. IMPRESSION: 1. Limited exam secondary to positioning. 2. Cardiomegaly without acute process. ACT 112: Negative or not required by law. The above report was generated using voice recognition software. It may contain grammatical, syntax o r spelling errors. Electronically signed by: Rafa Leslie M.D. 11/10/2023 7:52 AM
[2023-11-10 08:18] LABS: Estimated Average Glucose 206 mg/dl; Hemoglobin A1C 8.8 % (4.5-5.6)
[2023-11-10] MEDS ORDERED: NON-FORMULARY MEDICATION (Cranberry Extract-Vitamin C [Azo Cranberry Plus Vit C] 250-60 mg PO SCH (09:00)
[2023-11-10] MEDS: HEPARIN SOD 5,000 UNIT/0.5 ML VIAL SQ SCH (09:21)
[2023-11-10] MEDS: LANTUS PER UNIT CHARGE SQ SCH (09:21)
[2023-11-10] MEDS: ATORVASTATIN 40 MG TAB PO SCH (09:22)
[2023-11-10] MEDS: CLOPIDOGREL BISULFATE 75 MG TAB PO SCH (09:22)
[2023-11-10] MEDS: GABAPENTIN 100 MG CAP PO SCH (09:22)
[2023-11-10] MEDS: ASPIRIN 81 MG ECTAB PO SCH (09:22)
[2023-11-10] MEDS: MAGNESIUM OXIDE 400 MG TAB PO SCH (09:22)
[2023-11-10] MEDS: CEROVITE ADV FORMULA TAB PO SCH (09:23)
[2023-11-10] MEDS: METOPROLOL TARTRATE 25 MG TAB PO SCH (09:23)
[2023-11-10] MEDS: FLUTICASONE PROPIONATE NA SPR 16 GM BTL SCH (09:23)
[2023-11-10] MEDS: POTASSIUM CHLORIDE CRTAB 20 MEQ TABCR PO STA (09:23)
[2023-11-10] MEDS: MECLIZINE HCL 25 MG TAB PO SCH (09:23)
[2023-11-10] MEDS: AMMONIUM LACTATE 12% LOTION 225 GM BTL EXT SCH (09:24)
--- NOTE | 2023-11-10 10:29 | Ultrasound Report ---
US abdomen ltd ascites HISTORY: 62 years-old Female ascites? Acute abdominal pain with possible ascites COMPARISON: CT 06/06/2023 TECHNIQUE: 4 sonographic images of the abdomen were submitted FINDINGS: No ascites identified within all 4 quadrants of the abdomen. IMPRESSION: No abdominal ascites identified. ACT 112: Negative or not required by law. The above report was generated using voice recognition software. It may contain grammatical, syntax o r spelling errors. Electronically signed by: Rafa Leslie M.D. 11/10/2023 10:27 AM
--- OUTSIDE RECORDS SUMMARY | 2023-11-10 12:02 | External Medical Summary | Summary of Care ---
Author Name Unknown Organization [facility] Address [address] [place] [address] Phone [phone] Care Team Providers Care Creative Director Name Role Phone Gregory Rausch MD Primary Care Provider [phone] Reason for Visit * Reason Onset Date Comments [facility]: Maintenance 11/03/2023 Encounter Details Date Type Department Care Team (Late st Contact Info) Description 11/03/2023 11:30 AM EST Scheduled Telephone [facility], [facility] [address] [place] [address] [facility], Nurse [facility] [address] [place] [address] Allergies Active Allergy Reactions Criticality Noted Date Comments Adhesive Tape 07/02/2017 Can tolerate band-aids Glycerin Other (Please comment) 03/12/2008 Topical agents with glycein-burning & itching Lactose 12/09/2014 Dairy - gas Lisinopril Cough 01/21/2010 Monosodium Glutamate Edema Other 03/12/2008 Hands and feet Penicillins Rash 11/14/2007 documented as of this encounter (statuses as of 11/03/2023) Medications Medication Sig Dispensed Refills Start Date [...] hypoglycemia E11.9 100 Tab 3 07/06/2021 Active Auction.comTouch Verio w/Device Kit Use up to 4 [...] daily. 400 g 3 10/02/2023 Active Nystatin 299091 UNIT/GM External Powder (Nystop)Indications:C andidal intertrigo Apply [...] [facility]),Type 2 diabetes mellitus with diabetic mononeuropathy, with [...] [facility] Inject 2 mg under the skin once a week. 9 mL 3 10/01/2023 Active traZODone HCl 100 MG Oral Tablet (Desyrel) Take 1 Tablet by mouth at bedtime. 0 Active Dexcom G6 TransmitterIndication s:Type 2 diabetes mellitus with hemoglobin A1c goal of less than 7.0% ([facility]) Use as directed. Use 1 transmitter every [...] as of this encounter (statuses as of 11/03/2023) Active Problems Problem Noted Date Diagnosed Date [...] eye 09/28/2020 Coronary artery disease invo lving [place] coronary artery of [place] heart without angina pectoris 12/16/2019 Last Assessment [...] as of this encounter (statuses as of 11/03/2023) Resolved Problems Problem Noted Date Diagnosed Date [...] o Beta Gena Therapy: Metoprolol Tartrate o COIRNA Inhibitor/ARB Therapy: Valsartan o Diuretic therapy: Torsemide [...] 12/21/2016 Diabetes mellitus 01/05/2014 12/21/2016 LEYVA RESEARCH OTHER*[id number] 01/05/2014 12/21/2016 Axillary pain 11/03/2013 12/21/2016 Obesity, [...] 12/21/2016 FOLLOWING SURGERY, UNSPECIFI ED ([facility] BSO 08/25/2011) 08/26/2011 12/21/2016 ADVANCE DIRECTIVE INFORMATION 04/17/2011 12/21/2016 Overview: Yes, Patient instructed to provide copy of advance directive for provider to review and to be scanned into Electronic Medical Record ADVANCE DIRECTIVE INFORMATION 03/01/2011 12/21/2016 Overview: Yes, Patient instructed to provide copy of advance directive for provider to review and to be scanned into Electronic Medical Record [facility] V710 Clinical Trial*[id number] 12/22/2010 04/14/2011 S/P aortic valve replacement 12/01/2010 08/26/2011 S/P AORTIC VALVE REPLACEMENT - #25 pericardial Mc valve 11/01/2010 06/28/2018 Overview: Aortic valve replacement with #25 pericardial Mc valve, model 2800TFX, serial number [id number] (Dr. Walker) [facility] V710 Clinical Trial*[id number] 10/18/2010 11/21/2010 Body mass index (BMI) of [...] as of this encounter (statuses as of 11/03/2023) Immunizations Name Administration Dates Next Due COVID-19 mRNA, LNP-s, No Pre serve, 2-Dose Series (Moderna) 10/25/2021,02/16/2021,01/18/2021 HEP A - Hepatitis A (Adult > 18 yrs) 06/07/2018, 12/05/2017 Hepatitis B, 20+ yrs 06/07/2018,01/08/20 18,12/05/2017,06/15,10/27/2013,09/12/2013 Pneumococcal Conjugate Vacci ne, 20-valent ([id number]) 06/22/2023 Pneumococcal Polysaccharide PPV23 (Pneumovax) 01/02/2008 Seasonal [...] encounter Miscellaneous Notes * Telephone Encounter - Marilin Tracey RN - 11/03/2023 12:11 PM EST Pt scheduled for f/u on [facility] d/c 11/02/23. Call placed to pt. No answer. LMOM req call back for any issues or concerns. documented in this encounter Plan of Treatment Upcoming Encounters Date Type Department Care Team (Latest Contact Info) Description 11/04/2023 2:00 PM EST Home Visit [facility] [address] [address] [facility], Nurse [facility] [address] [place] [address] 11/07/2023 1:40 PM EST Office Visit [facility] [address] [place] [address] Chandrika Aguirre DO [address] [place] [address] 11/21/2023 9:20 AM EST Office Visit [facility] [address] [place] [address] Gregory Rausch MD [address] [place] [address] 11/23/2023 6:10 PM EST Pharmacy Pharmacy, [facility] [address] [facility] [place] [address] Pharmacist1, [facility] [address] [facility] [place] [address] 12/03/2023 12:30 PM EDT Home Visit [facility] [place], [facility] [address] [place] [address] Jaycee Sorto RN [address] [place] [address] 12/05/2023 10:24 AM EDT Hospital Encounter [facility], Operating Room [facility] [address] [place] [phone] Ramsey Burnett, DO [address] [place] [address] 12/05/2023 10:24 AM EDT - 12/05/2023 11:17 AM EDT Surgery OR [facility], Operating Room [facility] [address] [place] [phone] Ramsey Burnett, DO [address] [place] [address] LEFT EXTRACAPSULAR CATARACT REMOVAL COMPLEX WITH IOL 12/06/2023 8:45 AM EDT Office Visit Ophthalmology, [facility] [address] [place] [address] Ramsey Burnett, DO [address] [place] [address] 12/11/2023 10:30 AM EDT Telemedicine Psychology, [address] [address] Anjali Alanis LCSW [address] [place] [address] 12/14/2023 1:15 PM EDT Office Visit Ophthalmology, [place] [address] [place] [address] Ramsey Burnett, [address] [facility] [place] [address] 01/11/2024 1:15 PM EDT Office Visit Ophthalmology, [place] [address] [facility] [place] [address] Ramsey Burnett, [address] [facility] [place] [address] 02/04/2024 10:20 AM EDT Office Visit [facility] [place] [address] Gregory Rausch MD 132 [facility] [place] [address] Scheduled Procedures Name Priority Associated Diagnoses Date/Ti [...] Additional history exists CKD PHOS USE SMARTSET 60470 06/18/202405/26, 06/16/2023, 06/15/2023, Additional history exists Diabetic Eye Exam 09/13/2024 09/13/2023, , 09/13/2023, Additional history exists B-12 09/18/2024 09/18/2023, 08/24, 2020, Additional history exists CKD HGB USE SMARTSET 41931 10/15/202410/15, 07/31/2023, 07/31/2023, Additional history exists TSH [...] this encounter Medical Devices Implanted Type Area Corporate Vp Advertising & Online Device Identifier Shelf Expiration Date Model / Serial / Lot Cath Roselia Single Lumen - [id number] Implanted:Qty : 1 on 03/12/2008 at OR [facility] Left: Chest [employer] *DO NOT USE* 07/25/2012 21-4053-24 / / [id number] Valve Tarsha Aortic [id number] - [id number] Implanted:Qty : 1 on 11/01/2010 at OR [facility] N/A: Heart MC [employer] DANIEL 05/20/2012 2800TFX-25 / / [id number] Mesh Soft [id number] - [id number] Implanted:Qty : 1 on 10/10/2019 by Gigi Hendrickson [place] [facility] N/A: Abdomen CR BARD : DAVOL [id number] 05/21/2024 [id number] / / [id number] Lens 22.5 Sn60wf - [id number] - [id number] Implanted:Qty : 1 on 09/15/2020 by Renaldo Cook, Cece Acosta MD at OR [facility] Right: Eye IVA : SURGICAL [id number] 05/13/2025 SN60 WF.225 / [id number] / [id number] documented as of this encounter Advance [...] the patient have Health Care Power of Group Chief Operator? No Full Code 10/10/2019 8:40 AM [...] patient or by statute hierarchy) Care Teams Creative Director Relationship Specialty Start Date End Date Gregory Rausch MD [address] [place] [address] PCP - General Family Medicine 02/12/20 documented as of this encounter
--- OUTSIDE RECORDS SUMMARY | 2023-11-10 12:02 | External Medical Summary | Summary of Care ---
Author Name Unknown Organization [facility] Address [address] [place] [address] Phone [phone] Care Team Providers Care Box Spring Maker Name Role Phone Gregory Rausch MD Primary Care Provider [phone] Reason for Visit * Reason Onset Date Comments Test Results 11/08/2023 Encounter Details Date Type Department Care Team (Late st Contact Info) Description 11/08/2023 Telephone Cardiology, [facility] [address] [place] [address] [...] as of this encounter (statuses as of 11/08/2023) Medications Medication Sig Dispensed Refills Start Date [...] hypoglycemia E11.9 100 Tab 3 07/06/2021 Active RSensTouch Verio w/Device Kit Use up to 4 times a day E11.9 1 Kit 0 02/10/2022 Active RSensTouch Delica Lancets 33G TEST 4 TIMES DAILY [...] ER 10 MEQ Oral Tablet Extended ReleaseIndications:Ac anvik on chronic heart failure with preserved ejection [...] hemoglobin A1c goal of less than 7.0% ([facility]),Type 2 diabetes mellitus with stage 3a chronic kidney disease, with long-term current use of insulin ([facility]) Inject 30 Units under the skin at bedtime. 6 mL 2 07/31/2023 Active BD Pen Needle Short U/F 31G X 8 MMIndications:Type 2 diabetes mellitus with hemoglobin A1c goal of less than 7.0% ([facility]),Type 2 diabetes mellitus with stage 3a chronic kidney disease, with long-term current use of insulin ([facility]) Use with insulin 4 times daily 400 Each 3 07/31/2023 Active Gaviscon 80-14.2 MG Oral Tablet Chewable (Alum Hydroxide-Mag Trisilicate) Take by mouth as needed. 0 Active Atorvastatin Calcium 40 MG Oral Tablet (Lipitor)Indications: Heart failure, systolic, due to idiopathic cardiomyopathy ([facility]),S/P aortic valve replacement,HTN, goal below 140/80,Dyslipidemia, [...] hemoglobin A1c goal of less than 7.0% ([facility]) Use up to 50 units per [...] heart failure with preserved ejection fraction (HFpEF) ([facility]) One tablet one morning twice per week (Sunday and Sunday), 30 minutes prior to torsemide dose 30 Tablet 10/02/2023 Active Ammonium Lactate 12 % External Lotion (Lac-Hydrin) Apply to both feet once daily. 400 g 3 10/02/2023 Active Nystatin 748915 UNIT/GM External Powder (Nystop)Indications:C andidal intertrigo Apply [...] hemoglobin A1c goal of less than 7.0% ([facility]),Type 2 diabetes mellitus with diabetic mononeuropathy, with long-term current use of insulin ([facility]),Type 2 diabetes mellitus with both eyes affected by mild nonproliferative retinopathy and macular edema, with long-term current use of insulin ([facility]),Type 2 diabetes mellitus with stage 3a chronic kidney disease, with long-term current use of insulin ([facility]) Inject 2 mg under the skin once a week. 9 mL 3 10/01/2023 Active traZODone HCl 100 MG Oral Tablet (Desyrel) Take 1 Tablet by mouth at bedtime. 0 Active Dexcom G6 TransmitterIndication s:Type 2 diabetes mellitus with hemoglobin A1c goal of less than 7.0% ([facility]) Use as directed. Use 1 transmitter every 90 days E 11.9 1 Each 3 10/18/2023 Active Dexcom G6 SensorIndications:Typ e 2 diabetes mellitus with hemoglobin A1c goal of less than 7.0% ([facility]) Use as directed. Use 1 sensor every 10 days E 11.9 9 Each 3 10/18/2023 Active Gabapentin 100 MG Oral Capsule (Neurontin)Indication s:Polyneuropathy associated with underlying disease (HCC) TAKE 1 CAPSULE BY MOUTH EVERY DAY IN THE MORNING , AT NOON, AND BEFORE BEDTIME 90 Capsule 0 10/23/2023 Active documented as of this encounter (statuses as of 11/08/2023) Active Problems Problem Noted Date Diagnosed Date Hypertensive kidney disease with stage 3a chronic kidney disease 11/05/2023 Thrombocytopenia 09/12/2023 Obesity, Class I, BMI 30.0-34.9 [...] eye 09/28/2020 Coronary artery disease invo lving [place] coronary artery of [place] heart without angina pectoris 12/16/2019 Last Assessment [...] as of this encounter (statuses as of 11/08/2023) Resolved Problems Problem Noted Date Diagnosed Date [...] 12/21/2016 Diabetes mellitus 01/05/2014 12/21/2016 LEYVA RESEARCH OTHER*[id number] 01/05/2014 12/21/2016 Axillary pain 11/03/2013 12/21/2016 Obesity, [...] cath 09/201008/26/2011 12/21/2016 FOLLOWING SURGERY, UNSPECIFI ED ([facility] BSO 08/25/2011) 08/26/2011 12/21/2016 ADVANCE DIRECTIVE INFORMATION 04/17/2011 12/21/2016 Overview: Yes, Patient instructed to provide copy of advance directive for provider to review and to be scanned into Electronic Medical Record ADVANCE DIRECTIVE INFORMATION 03/01/2011 12/21/2016 Overview: Yes, Patient instructed to provide copy of advance directive for provider to review and to be scanned into Electronic Medical Record [facility] V710 Clinical Trial*[id number] 12/22/2010 04/14/2011 S/P aortic valve replacement 12/01/2010 08/26/2011 S/P AORTIC VALVE REPLACEMENT - #25 pericardial Mc valve 11/01/2010 06/28/2018 Overview: Aortic valve replacement with #25 pericardial Mc valve, model 2800TFX, serial number [id number] (Dr. Walker) [facility] V710 Clinical Trial*[id number] 10/18/2010 11/21/2010 Body mass index (BMI) of [...] as of this encounter (statuses as of 11/08/2023) Immunizations Name Administration Dates Next Due COVID-19 mRNA, LNP-s, No Pre serve, 2-Dose Series (Moderna) 10/25/2021,02/16/2021,01/18/2021 HEP A - Hepatitis A (Adult > 18 yrs) 06/07/2018, 12/05/2017 Hepatitis B, 20+ yrs 06/07/2018,01/08/20 18,12/05/2017,06/15,10/27/2013,09/12/2013 Pneumococcal Conjugate Vacci ne, 20-valent ([id number]) 06/22/2023 Pneumococcal Polysaccharide PPV23 (Pneumovax) 01/02/2008 Seasonal [...] encounter Miscellaneous Notes * Telephone Encounter - Do Ricardo CMA - 11/08/2023 4:17 PM EST My g sent. * Telephone Encounter - Do Ricardo CMA - 11/08/2023 4:15 PM EST ----- Message from Feli Teague PA-C sent at 11/07/2023 5:04 PM EST ----- Monitor results reviewed. Normal sinus rhythm. Frequent PAC's. No definitive atrial fibrillation. Continue metoprolol 25 mg BID. documented in this encounter Plan of Treatment Upcoming Encounters Date Type Department Care Team (Latest Contact Info) Description 11/12/2023 4:00 PM EST Home Visit [facility] [address] [place] [address] Jaycee Sorto, RN [address] [place] [address] 11/21/2023 9:20 AM EST Office Visit [facility] [address] [place] [address] Gregory Rausch MD [address] [place] [address] 11/23/2023 6:10 PM EST Pharmacy Pharmacy, [facility] [address] [facility] [place] [address] Pharmacist1, [facility] [address] [facility] [place] [address] 12/03/2023 12:30 PM EDT Home Visit [facility] at [place], [facility] [address] [place] [address] Jaycee Sorto RN [address] [place] [address] 12/05/2023 10:24 AM EDT Hospital Encounter [facility], Operating Room [facility] [address] [place] [address] Ramsey Burnett, DO [address] [place] [address] 12/05/2023 10:24 AM EDT - 12/05/2023 11:17 AM EDT Surgery OR [facility], Operating Room [facility] [address] [place] [address] Ramsey Burnett, DO [address] [place] [address] LEFT EXTRACAPSULAR CATARACT REMOVAL COMPLEX WITH IOL 12/06/2023 8:45 AM EDT Office Visit Ophthalmology, [facility] [address] [place] [address] Ramsey Burnett, DO [address] [place] [address] 12/11/2023 10:30 AM EDT Telemedicine Psychology, [address] [place] [address] Anjali Alanis, [facility] [address] [place] [address] 12/14/2023 1:15 PM EDT Office Visit Ophthalmology, [place] [address] [place] [address] Ramsey Burnett, DO [address] [place] [address] 01/08/2024 9:20 AM EDT Office Visit Nephrology, [facility] [address] [facility] [place] [address] Fidelina Baumann MD [address] [facility] [place] [address] 01/11/2024 1:15 PM EDT Office Visit Ophthalmology, [place] [address] [place] [address] Ramsey Burnett, [address] [place] [address] 02/04/2024 10:20 AM EDT Office Visit Family Practice [facility] [address] [place] [address] Gregory Rausch MD [address] [place] [address] Scheduled Procedures Name Priority Associated Diagnoses Date/Ti [...] Additional history exists CKD PHOS USE SMARTSET 82106 06/18/202405/26, 06/16/2023, 06/15/2023, Additional history exists Diabetic Eye Exam 09/13/2024 09/13/2023, , 09/13/2023, Additional history exists B-12 09/18/2024 09/18/2023, 08/24, 2020, Additional history exists CKD HGB USE SMARTSET 46555 10/15/202410/15, 07/31/2023, 07/31/2023, Additional history exists TSH [...] this encounter Medical Devices Implanted Type Area Insemination Worker Device Identifier Shelf Expiration Date Model / Serial / Lot Cath Roselia Single Lumen - [id number] Implanted:Qty : 1 on 03/12/2008 at OR [facility] Left: Chest [employer] *DO NOT USE* 07/25/2012 21-4053-24 / / [id number] Valve Tarsha Aortic [id number] - [id number] Implanted:Qty : 1 on 11/01/2010 at OR [facility] N/A: Heart MC [employer]STATZCIR[employer] DANIEL 05/20/2012 2800TFX-25 / / [id number] Mesh Soft [id number] - [id number] Implanted:Qty : 1 on 10/10/2019 by Gigi Hendrickson MD at OR [facility] N/A: Abdomen CR BARD : DAVOL [id number] 05/21/2024 [id number] / / [id number] Lens 22.5 Sn60wf - [id number] - [id number] Implanted:Qty : 1 on 09/15/2020 by Renaldo Cook, Cece Acosta MD at OR [facility] Right: Eye IVA : SURGICAL [id number] 05/13/2025 SN60 WF.225 / [id number] / [id number] documented as of this encounter Advance [...] the patient have Health Care Power of Wrecking Crane Engine Operator? No Full Code 10/10/2019 8:40 AM 10/10/2019 5:53 PM This order reflects the patients wishes and were consensually agreed upon. Full Code 11/06/2017 4:55 PM 11/07/2017 7:14 PM This order reflects the patients wishes and were consensually agreed upon. Healthcare Agents on File Name Relationship Healthcare Agent Relationshi p Communication Gigi Gutierrez [facility] Adult Child Health Care Repr esentative (appointed verbally by patient or by statute hierarchy) Care Teams Box Spring Maker Relationship Specialty Start Date End Date Gregory Rausch MD [address] [place] [address] PCP - General Family Medicine 02/12/20 documented as of this encounter
--- OUTSIDE RECORDS SUMMARY | 2023-11-10 12:02 | External Medical Summary | Summary of Care ---
Author Name Unknown Organization [facility] Address [address] [place] [address] Phone [phone] Care Team Providers Care Restaurant Busser Name Role Phone Gregory Rausch MD Primary Care Provider [phone] Reason for Visit * Reason Onset Date Comments [facility]: Maintenance 11/04/2023 Encounter Details Date Type Department Care Team (Late st Contact Info) Description 11/04/2023 2:30 PM EST Scheduled Telephone [facility], [facility] [address] [place] [address] [facility], Nurse [facility] [address] [place] [address] Allergies Active Allergy Reactions Criticality Noted Date Comments Adhesive Tape 07/02/2017 Can tolerate band-aids Glycerin Other (Please comment) 03/12/2008 Topical agents with glycein-burning & itching Lactose 12/09/2014 Dairy - gas Lisinopril Cough 01/21/2010 Monosodium Glutamate Edema Other 03/12/2008 Hands and feet Penicillins Rash 11/14/2007 documented as of this encounter (statuses as of 11/04/2023) Medications Medication Sig Dispensed Refills Start Date [...] hypoglycemia E11.9 100 Tab 3 07/06/2021 Active Ionic SecurityTouch Verio w/Device Kit Use up to 4 [...] goal of less than 7.0% ([facility]),Type 2 diabetes mellitus with stage 3a chronic kidney disease, with long-term current use of insulin ([facility]) Inject 30 Units under the skin at bedtime. 6 mL 2 07/31/2023 Active BD Pen Needle Short U/F 31G X 8 MMIndications:Type 2 diabetes mellitus with hemoglobin A1c goal of less than 7.0% ([facility]),Type 2 diabetes mellitus with stage 3a chronic kidney disease, with long-term current use of insulin ([facility]) Use with insulin 4 times daily 400 Each 3 07/31/2023 Active Gaviscon 80-14.2 MG Oral Tablet Chewable (Alum Hydroxide-Mag Trisilicate) Take by mouth as needed. 0 Active Atorvastatin Calcium 40 MG Oral Tablet (Lipitor)Indications: Heart failure, systolic, due to idiopathic cardiomyopathy ([facility]),S/P aortic valve replacement,HTN, goal below 140/80,Dyslipidemia, [...] goal of less than 7.0% ([facility]) Use up to 50 units per [...] with preserved ejection fraction (HFpEF) ([facility]) One tablet one morning twice per week (Sunday and Sunday), 30 minutes prior to torsemide dose 30 Tablet 3 10/02/2023 Active Ammonium Lactate 12 % External Lotion (Lac-Hydrin) Apply to both feet once daily. 400 g 3 10/02/2023 Active Nystatin 137506 UNIT/GM External Powder (Nystop)Indications:C andidal intertrigo Apply [...] goal of less than 7.0% ([facility]),Type 2 diabetes mellitus with diabetic mononeuropathy, with long-term current use of insulin ([facility]),Type 2 diabetes mellitus with both eyes affected by mild nonproliferative retinopathy and macular edema, with long-term current use of insulin ([facility]),Type 2 diabetes mellitus with stage 3a chronic kidney disease, with long-term current use of insulin ([facility]) Inject 2 mg under the skin once a week. 9 mL 3 10/01/2023 Active traZODone HCl 100 MG Oral Tablet (Desyrel) Take 1 Tablet by mouth at bedtime. 0 Active Dexcom G6 TransmitterIndication s:Type 2 diabetes mellitus with hemoglobin A1c goal of less than 7.0% ([facility]) Use as directed. Use 1 transmitter every 90 days E 11.9 1 Each 3 10/18/2023 Active Dexcom G6 SensorIndications:Typ e 2 diabetes mellitus with hemoglobin A1c goal of less than 7.0% ([facility]) Use as directed. Use 1 sensor every 10 days E 11.9 9 Each 3 10/18/2023 Active Gabapentin 100 MG Oral Capsule (Neurontin)Indication s:Polyneuropathy associated with underlying disease (HCC) TAKE 1 CAPSULE BY MOUTH EVERY DAY IN THE MORNING , AT NOON, AND BEFORE BEDTIME 90 Capsule 0 10/23/2023 Active documented as of this encounter (statuses as of 11/04/2023) Active Problems Problem Noted Date Diagnosed Date [...] eye 09/28/2020 Coronary artery disease invo lving [place] coronary artery of [place] heart without angina pectoris 12/16/2019 Last [...] as of this encounter (statuses as of 11/04/2023) Resolved Problems Problem Noted Date Diagnosed Date [...] 12/21/2016 Diabetes mellitus 01/05/2014 12/21/2016 LEYVA RESEARCH OTHER*[id number] 01/05/2014 12/21/2016 Axillary pain 11/03/2013 12/21/2016 Obesity, [...] cath 09/201008/26/2011 12/21/2016 FOLLOWING SURGERY, UNSPECIFI ED ([facility] BSO 08/25/2011) 08/26/2011 12/21/2016 ADVANCE DIRECTIVE [...] Record [facility] V710 Clinical Trial*[id number] 12/22/2010 04/14/2011 S/P aortic valve replacement 12/01/2010 08/26/2011 S/P AORTIC VALVE REPLACEMENT - #25 pericardial Mc valve 11/01/2010 06/28/2018 Overview: Aortic valve replacement with #25 pericardial Mc valve, model 2800TFX, serial number [id number] (Dr. Walker) [facility] V710 Clinical Trial*[id number] 10/18/2010 11/21/2010 Body mass index (BMI) of [...] as of this encounter (statuses as of 11/04/2023) Immunizations Name Administration Dates Next Due COVID-19 mRNA, LNP-s, No Pre serve, 2-Dose Series (Moderna) 10/25/2021,02/16/2021,01/18/2021 HEP A - Hepatitis A (Adult > 18 yrs) 06/07/2018, 12/05/2017 Hepatitis B, 20+ yrs 06/07/2018,01/08/20 18,12/05/2017,06/15,10/27/2013,09/12/2013 Pneumococcal Conjugate Vacci ne, 20-valent ([id number]) 06/22/2023 Pneumococcal Polysaccharide PPV23 (Pneumovax) 01/02/2008 Seasonal [...] encounter Miscellaneous Notes * Telephone Encounter - Laila Kingsley RN - 11/04/2023 3:28 PM EST Placed two calls to pt today to schedule HV for CASSIE 1 No answer either time LMOM asking to return my call for HV today No return call from pt rec'd Review of [facility] d/c summary indicates that she was d/c to home T/c to [facility] - not listed on Inpt list Pt well known to me Lives in locked building In order to get into building pt must answer her phone and buzz person in Will address rescheduling of CASSIE 1 with [facility] team tomorrow morning documented in this encounter Plan of Treatment Upcoming Encounters Date Type Department Care Team (Latest Contact Info) Description 11/07/2023 1:40 PM EST Office Visit [facility] [address] [place] [address] Chandrika Aguirre DO [address] [place] [address] 11/21/2023 9:20 AM EST Office Visit [facility] [address] [place] [address] Gregory Rausch MD [address] [place] [address] 11/23/2023 6:10 PM EST Pharmacy Pharmacy, [facility] [address] [facility] [place] [address] Pharmacist1, [facility] [address] [facility] [address] 12/03/2023 12:30 PM EDT Home Visit [facility] at [facility] [address] [place] [address] Jaycee Sorto, RN [address] [place] [address] 12/05/2023 10:24 AM EDT Hospital Encounter [facility], Operating Room [facility] [address] [place] [address] Ramsey Burnett, DO [address] [address] 12/05/2023 10:24 AM EDT - 12/05/2023 11:17 AM EDT Surgery [facility], Operating Room [facility] [address] [place] [address] Ramsey Burnett, [address] [place] [address] LEFT EXTRACAPSULAR CATARACT REMOVAL COMPLEX WITH IOL 12/06/2023 8:45 AM EDT Office Visit Ophthalmology, [facility] [address] [place] [address] Ramsey Burnett, DO [address] [place] [address] 12/11/2023 10:30 AM EDT Telemedicine [facility], [place] [address] [place] [address] Anjali Alanis LCSW [address] [place] [address] 12/14/2023 1:15 PM EDT Office Visit Ophthalmology, [facility] [address] [place] [address] Ramsey Burnett, DO [address] [place] [address] 01/11/2024 1:15 PM EDT Office Visit Ophthalmology, [facility] [address] [place] [address] Ramsey Burnett, [address] [place] [address] 02/04/2024 10:20 AM EDT Office Visit [facility] [address] [facility] [place] [address] Gregory Rausch MD [address] [facility] [place] [address] Scheduled Procedures Name Priority Associated Diagnoses Date/Ti [...] Additional history exists CKD PHOS USE SMARTSET 14203 06/18/2024 09/2 01/2023, 06/16/2023, 06/15/2023, Additional history exists Diabetic Eye Exam 09/13/2024 09/13/2023, , 09/13/2023, Additional history exists B-12 09/18/2024 09/18/2023, 08/24, 2020, Additional history exists CKD HGB USE SMARTSET 99723 10/15/202410/15, 07/31/2023, 07/31/2023, Additional history exists TSH [...] this encounter Medical Devices Implanted Type Area Hydro Mechanic Device Identifier Shelf Expiration Date Model / Serial / Lot Cath Roselia Single Lumen - [id number] Implanted:Qty : 1 on 03/12/2008 at OR [facility] Left: Chest [employer] *DO NOT USE* 07/25/2012 21-4053-24 / / [id number] Valve Tarsha Aortic [id number] - [id number] Implanted:Qty : 1 on 11/01/2010 at OR [facility] N/A: Heart [employer] 05/20/2012 [id number]-25 / / [id number] Mesh Soft [id number] - [id number] Implanted:Qty : 1 on 10/10/2019 by Gigi Hendrickson [place] [facility] [place]/A: Abdomen CR BARD : DAVOL [id number] 05/21/2024 [id number] / / [id number] Lens 22.5 Sn60wf - [id number] - [id number] Implanted:Qty : 1 on 09/15/2020 by Renaldo Cook, Cece Acosta MD at OR [facility] Right: Eye IVA : SURGICAL [id number] 05/13/2025 SN60 WF.225 / [id number] / [id number] documented as of this encounter Advance [...] the patient have Health Care Power of Supervisor Acoustical Tile Carpenters? No Full Code 10/10/2019 8:40 AM 10/10/2019 [...] patient or by statute hierarchy) Care Teams Restaurant Busser Relationship Specialty Start Date End Date Gregory Rausch MD [address] [place] [address] PCP - General Family Medicine 02/12/20 documented as of this encounter
--- OUTSIDE RECORDS SUMMARY | 2023-11-10 12:02 | External Medical Summary | Summary of Care ---
Author Name Unknown Organization [facility] Address [address] [place] [address] Phone [phone] Care Team Providers Care Shot Dropper Name Role Phone Gregory Rausch MD Primary Care Provider [phone] Reason for Visit * Reason Onset Date Comments Appointment 11/05/2023 Encounter Details Date Type Department Care Team (Late st Contact Info) Description 11/05/2023 Telephone [facility], [place] [address] [place] [address] Services, Scheduling [address] [place] [address] Appointment (/) Allergies Active Allergy Reactions Criticality Noted Date Comments Adhesive Tape 07/02/2017 Can tolerate band-aids Glycerin Other (Please comment) 03/12/2008 Topical agents with glycein-burning & itching Lactose 12/09/2014 Dairy - gas Lisinopril Cough 01/21/2010 Monosodium Glutamate Edema Other 03/12/2008 Hands and feet Penicillins Rash 11/14/2007 documented as of this encounter (statuses as of 11/05/2023) Medications Medication Sig Dispensed Refills Start Date [...] ER 10 MEQ Oral Tablet Extended ReleaseIndications:[place] chronic heart failure with preserved ejection [...] goal of less than 7.0% ([facility]),Type 2 diabetes mellitus with stage 3a chronic kidney disease, with long-term current use of insulin ([facility]) Inject 30 Units under the skin at bedtime. 6 mL 2 07/31/2023 Active BD Pen Needle Short U/F 31G X 8 MMIndications:Type 2 diabetes mellitus with hemoglobin A1c goal of less than 7.0% ([facility]),Type 2 diabetes mellitus with stage 3a chronic kidney disease, with long-term current use of insulin ([facility]) Use with insulin 4 times daily 400 Each 3 07/31/2023 Active Gaviscon 80-14.2 MG Oral Tablet Chewable (Alum Hydroxide-Mag Trisilicate) Take by mouth as needed. 0 Active Atorvastatin Calcium 40 MG Oral Tablet (Lipitor)Indications: Heart failure, systolic, due to idiopathic cardiomyopathy ([facility]),S/P aortic valve replacement,HTN, goal below [...] goal of less than 7.0% ([facility]) Use up to 50 units [...] with preserved ejection fraction (HFpEF) ([facility]) One tablet one morning twice per week (Sunday and Sunday), 30 minutes prior to torsemide dose 30 Tablet 3 10/02/2023 Active Ammonium Lactate 12 % External Lotion (Lac-Hydrin) Apply to both feet once daily. 400 g 10/02/2023 Active Nystatin 840487 UNIT/GM External Powder (Nystop)Indications:C andidal intertrigo Apply [...] goal of less than 7.0% ([facility]),Type 2 diabetes mellitus with diabetic mononeuropathy, with long-term current use of insulin ([facility]),Type 2 diabetes mellitus with both eyes affected by mild nonproliferative retinopathy and macular edema, with long-term current use of insulin ([facility]),Type 2 diabetes mellitus with stage 3a chronic kidney disease, with long-term current use of insulin ([facility]) Inject 2 mg under the skin once a week. 9 mL 3 10/01/2023 Active traZODone HCl 100 MG Oral Tablet (Desyrel) Take 1 Tablet by mouth at bedtime. 0 Active Dexcom G6 TransmitterIndication s:Type 2 diabetes mellitus with hemoglobin A1c goal of less than 7.0% ([facility]) Use as directed. Use 1 transmitter every 90 days E 11.9 1 Each 10/18/2023 Active Dexcom G6 SensorIndications:Typ e 2 diabetes mellitus with hemoglobin A1c goal of less than 7.0% ([facility]) Use as directed. Use 1 sensor every 10 days E 11.9 9 Each 3 10/18/2023 Active Gabapentin 100 MG Oral Capsule (Neurontin)Indication s:Polyneuropathy associated with underlying disease (HCC) TAKE 1 CAPSULE BY MOUTH EVERY DAY IN THE MORNING , AT NOON, AND BEFORE BEDTIME 90 Capsule 0 10/23/2023 Active documented as of this encounter (statuses as of 11/05/2023) Active Problems Problem Noted Date Diagnosed Date [...] eye 09/28/2020 Coronary artery disease invo lving [place] coronary artery of [place] heart without angina pectoris 12/16/2019 Last Assessment [...] as of this encounter (statuses as of 11/05/2023) Resolved Problems Problem Noted Date Diagnosed Date [...] 12/21/2016 Diabetes mellitus 01/05/2014 12/21/2016 LEYVA RESEARCH OTHER*[id number] 01/05/2014 12/21/2016 Axillary pain 11/03/2013 12/21/2016 Obesity, [...] cath 09/201008/26/2011 12/21/2016 FOLLOWING SURGERY, UNSPECIFI ED ([facility] BSO 08/25/2011) 08/26/2011 12/21/2016 ADVANCE DIRECTIVE INFORMATION 04/17/2011 12/21/2016 Overview: Yes, Patient instructed to provide copy of advance directive for provider to review and to be scanned into Electronic Medical Record ADVANCE DIRECTIVE INFORMATION 03/01/2011 12/21/2016 Overview: Yes, Patient instructed to provide copy of advance directive for provider to review and to be scanned into Electronic Medical Record [facility] V710 Clinical Trial*[id number] 12/22/2010 04/14/2011 S/P aortic valve replacement 12/01/2010 08/26/2011 S/P AORTIC VALVE REPLACEMENT - #25 pericardial Mc valve 11/01/2010 06/28/2018 Overview: Aortic valve replacement with #25 pericardial Mc valve, model 2800TFX, serial number [id number] (Dr. Walker) [facility] V710 Clinical Trial*[id number] 10/18/2010 11/21/2010 Body mass index (BMI) of [...] as of this encounter (statuses as of 11/05/2023) Immunizations Name Administration Dates Next Due COVID-19 mRNA, LNP-s, No Pre serve, 2-Dose Series (Moderna) 10/25/2021,02/16/2021,01/18/2021 HEP A - Hepatitis A (Adult > 18 yrs) 06/07/2018, 12/05/2017 Hepatitis B, 20+ yrs 06/07/2018,01/08/20 18,12/05/2017,06/15,10/27/2013,09/12/2013 Pneumococcal Conjugate Vacci ne, 20-valent ([id number]) 06/22/2023 Pneumococcal Polysaccharide PPV23 (Pneumovax) 01/02/2008 Seasonal [...] encounter Miscellaneous Notes * Telephone Encounter - Margaux Ugalde OSA - 11/05/2023 8:34 AM EST TT request to rs the appt from yesterday that emili barotn showed I called and she answered and was agreeable to a rs for 11/08@830 instead with Macario documented in this encounter Plan of Treatment Upcoming Encounters Date Type Department Care Team (Latest Contact Info) Description 11/07/2023 1:40 PM EST Office Visit [facility] [address] [place] [address] Chandrika Aguirre DO [address] [place] [address] 11/08/2023 8:30 AM EST [facility] [address] [place] [address] Jaycee Sorto RN [address] [place] [address] 11/21/2023 9:20 AM EST Office Visit [facility] [address] [place] [address] Gregory Rausch MD [address] [place] [address] 11/23/2023 6:10 PM EST Pharmacy Pharmacy, [facility] [address] [facility] [place] [address] Pharmacist1, [facility] [address] [facility] [place] [address] 12/03/2023 12:30 PM EDT Home Visit [facility] at [place], [facility] [place] [address] [place] [address] Jaycee Sorto, RN [address] [place] [address] 12/05/2023 10:24 AM EDT Hospital Encounter [facility], Operating Room [facility] [address] [place] [address] Ramsey Burnett, DO [address] [place] [address] 12/05/2023 10:24 AM EDT - 12/05/2023 11:17 AM EDT Surgery OR [facility], Operating Room [facility] [address] [place] [address] Ramsey Burnett, DO [address] [place] [address] LEFT EXTRACAPSULAR CATARACT REMOVAL COMPLEX WITH IOL 12/06/2023 8:45 AM EDT Office Visit Ophthalmology, [facility] [address] [place] [address] Ramsey Burnett, DO [address] [place] [address] 12/11/2023 10:30 AM EDT Telemedicine [facility] [place] [address] [place] [address] Anjali Alanis [facility] [address] [place] [address] 12/14/2023 1:15 PM EDT Office Visit Ophthalmology, [facility] [address] [place] [address] Ramsey Burnett, DO [address] [address] 01/11/2024 1:15 PM EDT Office Visit Ophthalmology, [facility] [address] [place] [address] Ramsey Burnett, DO [address] [place] [address] 02/04/2024 10:20 AM EDT Office Visit [facility] [address] [place] [address] Gregory Rausch MD [address] [place] [address] Scheduled Procedures Name Priority Associated Diagnoses Date/Ti [...] Additional history exists CKD PHOS USE SMARTSET 85694 06/18/2024 09/2 01/2023, 06/16/2023, 06/15/2023, Additional history exists Diabetic Eye Exam 09/13/2024 09/13/2023, , 09/13/2023, Additional history exists B-12 09/18/2024 09/18/2023, 08/24, 2020, Additional history exists CKD HGB USE SMARTSET 76499 10/15/202410/15, 07/31/2023, 07/31/2023, Additional history exists TSH [...] this encounter Medical Devices Implanted Type Area Model Maker Apprentice Device Identifier Shelf Expiration Date Model / Serial / Lot Cath Roselia Single Lumen - [id number] Implanted:Qty : 1 on 03/12/[address] [facility] Left: Chest [employer] *DO NOT USE* 07/25/2012 21-4053-24 / / [id number] Valve Tarsha Aortic [id number] - [id number] Implanted:Qty : 1 on 11/01/[address] [facility] N/A: Heart [employer] 05/20/2012 2800TFX-25 / / [id number] Mesh Soft [id number] - [id number] Implanted:Qty : 1 on 10/10/2019 by Gigi Hendrickson MD at [place] [facility] [place] N/A: Abdomen CR BARD : DAVOL [id number] 05/21/2024 [id number] / / [id number] Lens 22.5 Sn60wf - [id number] - [id number] Implanted:Qty : 1 on 09/15/2020 by Renaldo Cook, Cece Acosta MD at OR [facility] Right: Eye IVA : SURGICAL [id number] 05/13/2025 SN60 WF.225 / [id number] / [id number] documented as of this encounter Advance [...] the patient have Health Care Power of Car Seat Coverer? No Full Code 10/10/2019 8:40 AM 10/10/2019 [...] patient or by statute hierarchy) Care Teams Shot Dropper Relationship Specialty Start Date End Date Gregory Rausch MD [address] [place] [address] PCP - General Family Medicine 02/12/20 documented as of this encounter
--- OUTSIDE RECORDS SUMMARY | 2023-11-10 12:02 | External Medical Summary | Summary of Care ---
Author Name Unknown Organization [facility] Address [address] [place] [address] Phone [phone] Care Team Providers Care Mail Sorter Name Role Phone Gregory Rausch MD Primary Care Provider [phone] [phone] Reason for Visit * Reason Onset Date Comments [facility]: Maintenance 11/04/2023 Encounter Details Date Type Department Care Team (Late st Contact Info) Description 11/04/2023 2:30 PM EST Scheduled Telephone [facility], [facility] [address] [place] [address] [facility], Nurse [facility] [address] [place] [address] Allergies Active Allergy Reactions Criticality Noted Date [...] hypoglycemia E11.9 100 Tab 3 07/06/2021 Active GildTouch Verio w/Device Kit Use up to 4 [...] daily. 400 g 3 10/02/2023 Active Nystatin 455206 UNIT/GM External Powder (Nystop)Indications:C andidal intertrigo Apply [...] eye 09/28/2020 Coronary artery disease invo lving [place] coronary artery of [place] heart without angina pectoris 12/16/2019 Last Assessment [...] 12/21/2016 Diabetes mellitus 01/05/2014 12/21/2016 LEYVA RESEARCH OTHER*[id number] 01/05/2014 12/21/2016 Axillary pain 11/03/2013 12/21/2016 Obesity, [...] cath 09/201008/26/2011 12/21/2016 FOLLOWING SURGERY, UNSPECIFI ED ([facility] BSO 08/25/2011) 08/26/2011 12/21/2016 [...] Record [facility] V710 Clinical Trial*[id number] 12/22/2010 04/14/2011 S/P aortic valve replacement 12/01/2010 08/26/2011 S/P AORTIC VALVE REPLACEMENT - #25 pericardial Mc valve 11/01/2010 06/28/2018 Overview: Aortic valve replacement with #25 pericardial Mc valve, model 2800TFX, serial number [id number] (Dr. Walker) [facility] V710 Clinical Trial*[id number] 10/18/2010 11/21/2010 Body mass index (BMI) of [...] 06/07/2018,01/08/20 18,12/05/2017,06/15,10/27/2013,09/12/2013 Pneumococcal Conjugate Vacci ne, 20-valent ([id number]) 06/22/2023 Pneumococcal Polysaccharide PPV23 (Pneumovax) 01/02/2008 Seasonal [...] return call from pt rec'd Review of [facility] d/c summary indicates that she was d/c to home T/c to [facility] - not listed on Inpt list Pt well known to me Lives in locked building In order to get into building pt must answer her phone and buzz person in Will address rescheduling of CASSIE 1 with [facility] team tomorrow morning documented in this encounter Plan of Treatment Upcoming Encounters Date Type Department Care Team (Latest Contact Info) Description 11/07/2023 1:40 PM EST Office Visit [facility] [address] [place] [address] Chandrika Aguirre DO [address] [place] [address] 11/21/2023 9:20 AM EST Office Visit [facility] [address] [place] [address] Gregory Rausch MD [address] [place] [address] 11/23/2023 6:10 PM EST Pharmacy Pharmacy, [facility] [address] [facility] [place] [address] Pharmacist1, [facility] [address] [facility] [place] [address] 12/03/2023 12:30 PM EDT Home Visit [facility] at [facility] [address] [place] [address] Jaycee Sorto, RN [address] [place] [address] 12/05/2023 10:24 AM EDT Hospital Encounter [facility], Operating Room [facility] [address] [place] [address] Ramsey Burnett, DO [address] [address] 12/05/2023 10:24 AM EDT - 12/05/2023 11:17 AM EDT Surgery [facility], Operating Room [facility] [address] [place] [address] Ramsey Burnett, [address] [place] [address] LEFT EXTRACAPSULAR CATARACT REMOVAL COMPLEX WITH IOL 12/06/2023 8:45 AM EDT Office Visit Ophthalmology, [facility] [address] [place] [address] Ramsey Burnett, DO [address] [place] [address] 12/11/2023 10:30 AM EDT Telemedicine [facility] [place] [address] [place] [address] Anjali Alanis LCSW [address] [place] [address] 12/14/2023 1:15 PM EDT Office Visit Ophthalmology, [place] [address] [place] [address] Ramsey Burnett, DO [address] [place] [address] 01/11/2024 1:15 PM EDT Office Visit Ophthalmology, [place] [address] [place] [address] Ramsey Burnett, [address] [place] [address] 02/04/2024 10:20 AM EDT Office Visit Family [facility] [address] [facility] [place] [address] Gregory Rausch MD [address] [facility] [place] [address] Scheduled Procedures Name Priority Associated Diagnoses Date/Ti [...] Additional history exists CKD PHOS USE SMARTSET 57892 06/18/2024 09/2 01/2023, 06/16/2023, 06/15/2023, Additional history exists Diabetic Eye Exam 09/13/2024 09/13/2023, , 09/13/2023, Additional history exists B-12 09/18/2024 09/18/2023, 08/24, 2020, Additional history exists CKD HGB USE SMARTSET 45341 10/15/202410/15, 07/31/2023, 07/31/2023, Additional history exists TSH [...] this encounter Medical Devices Implanted Type Area Multimedia Designer Device Identifier Shelf Expiration Date Model / Serial / Lot Cath Roselia Single Lumen - [id number] Implanted:Qty : 1 on 03/12/2008 at OR [facility] Left: Chest [employer] *DO NOT USE* 07/25/2012 21-4053-24 / / [id number] Valve Tarsha Aortic [id number] - [id number] Implanted:Qty : 1 on 11/01/2010 at OR [facility] N/A: Heart MC [employer] DANIEL 05/20/2012 2800TFX-25 / / [id number] Mesh Soft [id number] - [id number] Implanted:Qty : 1 on 10/10/2019 by Gigi Hendrickson MD at [place] [facility] N/A: Abdomen CR BARD : DAVOL [id number] 05/21/2024 [id number] / / [id number] Lens 22.5 Sn60wf - [id number] - [id number] Implanted:Qty : 1 on 09/15/2020 by Renaldo Cook, Cece Acosta MD at [facility] Right: Eye IVA : SURGICAL [id number] 05/13/2025 SN60 WF.225 / [id number] / [id number] documented as of this encounter Advance [...] the patient have Health Care Power of Skate Boarder? No Full Code 10/10/2019 8:40 AM 10/10/2019 [...] patient or by statute hierarchy) Care Teams Mail Sorter Relationship Specialty Start Date End Date Gregory Rausch MD [address] [place] [address] PCP - General Family Medicine 02/12/20 documented as of this encounter
--- OUTSIDE RECORDS SUMMARY | 2023-11-10 12:02 | External Medical Summary | Summary of Care ---
Author Name Unknown Organization [facility] Address [address] [place] [address] Phone [phone] Care Team Providers Care Shut Off Worker Name Role Phone Gregory Rausch MD Primary Care Provider [phone] Reason for Visit * Reason Onset Date Comments No Show 11/04/2023 Encounter Details Date Type Department Care Team (Late st Contact Info) Description 11/04/2023 1:00 PM EST [facility] [address] [place] [address] [facility], Nurse [facility] [address] [place] [address] NO SHOW/FAILED TO KEEP APPOINTMENT* Allergies Active Allergy Reactions Criticality Noted Date [...] ER 10 MEQ Oral Tablet Extended ReleaseIndications:Ac [place] on chronic heart failure with preserved ejection fraction (HFpEF) ([facility]) Take 1 Tablet by mouth [...] daily. 400 g 3 10/02/2023 Active Nystatin 992580 UNIT/GM External Powder (Nystop)Indications:C andidal intertrigo Apply [...] Capsule (Neurontin)Indication s:Polyneuropathy associated with underlying disease ([facility]) TAKE 1 CAPSULE BY MOUTH EVERY DAY [...] eye 09/28/2020 Coronary artery disease invo lving [place] coronary artery of [place] heart without angina pectoris 12/16/2019 Last Assessment [...] 12/21/2016 Diabetes mellitus 01/05/2014 12/21/2016 LEYVA RESEARCH OTHER*[id number] 01/05/2014 12/21/2016 Axillary pain 11/03/2013 12/21/2016 Obesity, [...] cath 09/201008/26/2011 12/21/2016 FOLLOWING SURGERY, UNSPECIFI ED ([facility] BSO 08/25/2011) 08/26/2011 12/21/2016 ADVANCE DIRECTIVE INFORMATION 04/17/2011 12/21/2016 Overview: Yes, Patient instructed to provide copy of advance directive for provider to review and to be scanned into Electronic Medical Record ADVANCE DIRECTIVE INFORMATION 03/01/2011 12/21/2016 Overview: Yes, Patient instructed to provide copy of advance directive for provider to review and to be scanned into Electronic Medical Record [facility] V710 Clinical Trial*[id number] 12/22/2010 04/14/2011 S/P aortic valve replacement 12/01/2010 08/26/2011 S/P AORTIC VALVE REPLACEMENT - #25 pericardial Hernandez valve 11/01/2010 06/28/2018 Overview: Aortic valve replacement with #25 pericardial Hernandez valve, model 2800TFX, serial number [id number] (Dr. Walker) [facility] V710 Clinical Trial*[id number] 10/18/2010 11/21/2010 Body mass index (BMI) of [...] 06/07/2018,01/08/20 18,12/05/2017,06/15,10/27/2013,09/12/2013 Pneumococcal Conjugate Vacci ne, 20-valent ([id number]) 06/22/2023 Pneumococcal Polysaccharide PPV23 (Pneumovax) 01/02/2008 Seasonal [...] as of this encounter Progress Notes * Laila Kingsley RN - 11/04/2023 4:03 PM EST Patient failed to keep scheduled appointment. Laila Kingsley RN documented in this encounter Plan of Treatment Upcoming Encounters Date Type Department Care Team (Latest Contact Info) Description 11/07/2023 1:40 PM EST Office Visit [facility] [address] [address] Chandrika Aguirre DO [address] [place] [address] 11/21/2023 9:20 AM EST Office Visit [facility] [address] [place] [address] Gregory Rausch MD [address] [place] [address] 11/23/2023 6:10 PM EST Pharmacy Pharmacy, [facility] [place] [place] [address] [place] [address] Pharmacist1, [facility] [address] [place] [address] 12/03/2023 12:30 PM EDT Home Visit [facility] [place] [address] [place] [address] Jaycee Sorto, RN [address] [place] [address] 12/05/2023 10:24 AM EDT Hospital Encounter [facility], Operating Room [facility] [address] [place] [address] Ramsey Burnett, DO [address] [place] [address] 12/05/2023 10:24 AM EDT - 12/05/2023 11:17 AM EDT Surgery OR [facility], Operating Room [facility] [address] [place] [address] Ramsey Burnett, [address] [place] [address] LEFT EXTRACAPSULAR CATARACT REMOVAL COMPLEX WITH IOL 12/06/2023 8:45 AM EDT Office Visit Ophthalmology, [facility] [address] [place] [address] Ramsey Burnett, [address] [place] [address] 12/11/2023 10:30 AM EDT Telemedicine [facility], [place] [address] [place] [address] Anjali Alanis, [facility] [address] [place] [address] 12/14/2023 1:15 PM EDT Office Visit Ophthalmology, [place] [address] [place] [address] Ramsey Burnett, [address] [place] [address] 01/11/2024 1:15 PM EDT Office Visit Ophthalmology, [place] [address] [place] [address] Ramsey Burnett DO [address] [place] [address] 02/04/2024 10:20 AM EDT Office Visit [facility] [address] [place] [address] Gregory Rausch MD [address] [place] [address] Scheduled Procedures Name Priority Associated Diagnoses Date/Ti [...] Additional history exists CKD PHOS USE SMARTSET 48365 06/18/2024 092 01/2023, 06/16/2023, 06/15/2023, Additional history exists Diabetic Eye Exam 09/13/2024 09/13/2023, , 09/13/2023, Additional history exists B-12 09/18/2024 09/18/2023, 08/24, 2020, Additional history exists CKD HGB USE SMARTSET 79522 10/15/202410/15, 07/31/2023, 07/31/2023, Additional history exists TSH [...] this encounter Medical Devices Implanted Type Area Poultry Tender Device Identifier Shelf Expiration Date Model / Serial / Lot Cath Roselia Single Lumen - [id number] Implanted:Qty : 1 on 03/12/2008 at OR [facility] Left: Chest [employer] *DO NOT USE* 07/25/2012 21-4053-24 / / [id number] Valve Tarsha Aortic [id number] - [id number] Implanted:Qty : 1 on 11/01/2010 at OR [facility] N/A: Heart Inventalator 05/20/2012 2800TFX-25 / / [id number] Mesh Soft [id number] - [id number] Implanted:Qty : 1 on 10/10/2019 by Gigi Hendrickson MD at OR [facility] N/A: Abdomen CR BARD : DAVOL [id number] 05/21/2024 [id number] / / [id number] Lens 22.5 Sn60wf - [id number] - [id number] Implanted:Qty : 1 on 09/15/2020 by Renaldo Cook, Cece Acosta MD at OR [facility] Right: Eye IVA : SURGICAL [id number] 05/13/2025 SN60 WF.225 / [id number] / [id number] documented as of this encounter Visit Diagnoses Diagnosis NO SHOW/FAILED TO KEEP APPOINTMENT- Primary Cataract Unspecified cataract documented in this encounter [...] the patient have Health Care Power of Product Safety Engineer? No Full Code 10/10/2019 8:40 AM [...] patient or by statute hierarchy) Care Teams Shut Off Worker Relationship Specialty Start Date End Date Gregory Rausch MD [address] [place] [address] PCP - General Family Medicine 02/12/20 documented as of this encounter
--- OUTSIDE RECORDS SUMMARY | 2023-11-10 12:03 | External Medical Summary | Summary of Care ---
Author Name Unknown Organization [facility] Address [address] [place] [address] Phone [phone] Care Team Providers Care World Renowned Chef And Restaurant Owner Name Role Phone Gregory Rausch MD Primary Care Provider [phone] [phone] Reason for Visit * Reason Onset Date Comments [facility]: Maintenance 10/28/2023 Encounter Details Date Type Department Care Team (Late st Contact Info) Description 10/28/2023 3:00 PM EST Scheduled Telephone [facility], [facility] [address] [place] [address] [facility], Nurse [facility] [address] [place] [address] Allergies Active Allergy Reactions Criticality Noted Date Comments Adhesive Tape 07/02/2017 Can tolerate band-aids Glycerin Other (Please comment) 03/12/2008 Topical agents with glycein-burning & itching Lactose 12/09/2014 Dairy - gas Lisinopril Cough 01/21/2010 Monosodium Glutamate Edema Other 03/12/2008 Hands and feet Penicillins Rash 11/14/2007 documented as of this encounter (statuses as of 10/28/2023) Medications Medication Sig Dispensed Refills Start Date [...] hypoglycemia E11.9 100 Tab 3 07/06/2021 Active EqvilibriaTouch Verio w/Device Kit Use up to 4 [...] daily. 400 g 3 10/02/2023 Active Nystatin 303168 UNIT/GM External Powder (Nystop)Indications:C andidal intertrigo Apply [...] use of insulin ([facility]) Inject 2 mg under the skin once a week. 9 mL 3 10/01/2023 Active traZODone HCl 100 MG Oral Tablet (Desyrel) Take 1 Tablet by mouth at bedtime. 0 Active Dexcom G6 TransmitterIndication s:Type 2 diabetes mellitus with hemoglobin A1c goal of less than 7.0% ([facility]) Use as directed. Use 1 transmitter every 90 days E 11.9 1 Each 3 10/18/2023 Active Dexcom G6 SensorIndications:Typ e 2 diabetes mellitus with hemoglobin A1c goal of less than 7.0% ([facility]) Use as directed. Use 1 sensor every 10 days E 11.9 9 Each 3 10/18/2023 Active Gabapentin 100 MG Oral Capsule (Neurontin)Indication s:Polyneuropathy associated with underlying disease ([facility]) TAKE 1 CAPSULE BY MOUTH EVERY DAY IN THE MORNING , AT NOON, AND BEFORE BEDTIME 90 Capsule 0 10/23/2023 Active documented as of this encounter (statuses as of 10/28/2023) Active Problems Problem Noted Date Diagnosed Date [...] eye 09/28/2020 Coronary artery disease invo lving [place] coronary artery of [place] heart without angina pectoris 12/16/2019 Last Assessment [...] as of this encounter (statuses as of 10/28/2023) Resolved Problems Problem Noted Date Diagnosed Date [...] 12/21/2016 Diabetes mellitus 01/05/2014 12/21/2016 LEYVA RESEARCH OTHER*[id number] 01/05/2014 12/21/2016 Axillary pain 11/03/2013 12/21/2016 Obesity, [...] cath 09/201008/26/2011 12/21/2016 FOLLOWING SURGERY, UNSPECIFI ED ([facility] BSO 08/25/2011) 08/26/2011 12/21/2016 ADVANCE DIRECTIVE INFORMATION 04/17/2011 12/21/2016 Overview: Yes, Patient instructed to provide copy of advance directive for provider to review and to be scanned into Electronic Medical Record ADVANCE DIRECTIVE INFORMATION 03/01/2011 12/21/2016 Overview: Yes, Patient instructed to provide copy of advance directive for provider to review and to be scanned into Electronic Medical Record [facility] V710 Clinical Trial*[id number] 12/22/2010 04/14/2011 S/P aortic valve replacement 12/01/2010 08/26/2011 S/P AORTIC VALVE REPLACEMENT - #25 pericardial Mc valve 11/01/2010 06/28/2018 Overview: Aortic valve replacement with #25 pericardial Mc valve, model 2800TFX, serial number [id number] (Dr. Walker) [facility] V710 Clinical Trial*[id number] 10/18/2010 11/21/2010 Body mass index (BMI) of [...] as of this encounter (statuses as of 10/28/2023) Immunizations Name Administration Dates Next Due COVID-19 mRNA, LNP-s, No Pre serve, 2-Dose Series (Moderna) 10/25/2021,02/16/2021,01/18/2021 HEP A - Hepatitis A (Adult > 18 yrs) 06/07/2018, 12/05/2017 Hepatitis B, 20+ yrs 06/07/2018,01/08/20 18,12/05/2017,06/15,10/27/2013,09/12/2013 Pneumococcal Conjugate Vacci ne, 20-valent ([id number]) 06/22/2023 Pneumococcal Polysaccharide PPV23 (Pneumovax) 01/02/2008 Seasonal [...] Miscellaneous Notes * Telephone Encounter - Angelica Welch RN - 10/28/2023 11:28 AM EST Communication Note Name: Jovita Rose Situation: pt on for follow up call to check disposition after ED. Background: Patient called into [facility] yesterday to report nose bleed >10 minutes with dizziness. ED was recommended. Assessment: Upon review of [facility] EMR, it's noted that patient was admitted 10/27/23 with dx of PAF, hypokalemia, hyponatremia, HF, metabolic alkalosis. Recommendation/ Plan: Sharing with care team as FYI Added to shared hospital list documented in this encounter Plan of Treatment Upcoming Encounters Date Type Department Care Team (Latest Contact Info) Description 10/29/2023 11:30 AM EST Pharmacy Pharmacy, [facility] [place] [address] [facility] [place] [address] Pharmacist1, [facility] [address] [facility] [place] [address] 10/30/2023 9:30 AM EST Telemedicine Psychology, [place] [address] [place] [address] [facility] [address] [place] [address] 11/21/2023 9:20 AM EST Office Visit Family Practice [facility] [address] [place] [address] Gregory Rausch MD [address] [place] [address] 12/03/2023 12:30 PM EDT Home Visit Ad[facility] at [facility] [address] [place] [place] [address] Jaycee Sorto RN [address] [place] [address] 12/05/2023 10:24 AM EDT Hospital Encounter [facility], Operating Room [facility] [address] [place] [address] Ramsey Burnett, [address] [place] [address] 12/05/2023 10:24 AM EDT - 12/05/2023 11:17 AM EDT Surgery OR [facility], Operating Room [facility] [address] [place] [phone] Ramsey Burnett, [address] [place] [address] LEFT EXTRACAPSULAR CATARACT REMOVAL COMPLEX WITH IOL 12/06/2023 8:45 AM EDT Office Visit Ophthalmology, [facility] [address] [place] [address] Ramsey Burnett DO [address] [place] [address] 12/14/2023 1:15 PM EDT Office Visit Katerina See [address] [place] [address] Ramsey Burnett, [address] [place] [address] 01/11/2024 1:15 PM EDT Office Visit Ophthalmology, [place] [address] [place] [address] Ramsey Burnett DO [address] [place] [address] 02/04/2024 10:20 AM EDT Office Visit Family [facility] [address] [place] [address] Gregory Rausch MD [address] [place] [address] Scheduled Procedures Name Priority Associated Diagnoses Date/Ti [...] Additional history exists CKD PHOS USE SMARTSET 98640 06/18/202405/26, 06/16/2023, 06/15/2023, Additional history exists Diabetic Eye Exam 09/13/2024 09/13/2023, , 09/13/2023, Additional history exists B-12 09/18/2024 09/18/2023, 08/24, 2020, Additional history exists CKD HGB USE SMARTSET 33342 10/15/202410/15, 07/31/2023, 07/31/2023, Additional history exists TSH [...] this encounter Medical Devices Implanted Type Area Sustainable Design Coordinator Device Identifier Shelf Expiration Date Model / Serial / Lot Cath Roselia Single Lumen - [id number] Implanted:Qty : 1 on 03/12/2008 at [facility] Left: Chest [employer] *DO NOT USE* 07/25/2012 21-4053-24 / / [id number] Valve Tarsha Aortic [id number] - [id number] Implanted:Qty : 1 on 11/01/2010 at OR [facility] N/A: Heart [employer] DANIEL 05/20/2012 2800TFX-25 / / [id number] Mesh Soft [id number] - [id number] Implanted:Qty : 1 on 10/10/2019 by Gigi Hendrickson MD at [place] [facility] [place] N/A: Abdomen CR BARD : DAVOL [id number] 05/21/2024 [id number] / / [id number] Lens 22.5 Sn60wf - [id number] - [id number] Implanted:Qty : 1 on 09/15/2020 by Renaldo Cook, Cece Acosta MD at OR [facility] Right: Eye IVA : SURGICAL [id number] 05/13/2025 SN60 WF.225 / [id number] / [id number] documented as of this encounter Advance [...] the patient have Health Care Power of Digital Solution Architect? No Full Code 10/10/2019 8:40 AM 10/10/2019 5:53 PM This order reflects the patients wishes and were consensually agreed upon. Full Code 11/06/2017 4:55 PM 11/07/2017 7:14 PM This order reflects the patients wishes and were consensually agreed upon. Healthcare Agents on File Name Relationship Healthcare Agent [facility] p Communication Gigi Rose Adult Child Health Care Repr esentative (appointed verbally by patient or by statute hierarchy) Care Teams World Renowned Chef And Restaurant Owner Relationship Specialty Start Date End Date Gregory Rausch MD [address] [place] [address] PCP - General Family Medicine 02/12/20 documented as of this encounter
--- OUTSIDE RECORDS SUMMARY | 2023-11-10 12:03 | External Medical Summary | Summary of Care ---
Author Name Unknown Organization [facility] Address [address] [place] [address] Phone [phone] Care Team Providers Care Erco Machine Operator Name Role Phone Gregory Rausch MD Primary Care Provider [phone] Reason for Visit * Reason Comments Encounter Created in Error Patient was i n the hospital * - Authorized Specialty Diagnoses / Procedures Referred By Contac t Referred To Contact Referral ID Status Reason Start Date Expiration Date V isits Requested Visits Authorized [id number] Authorized 10/25/2023 10/23/[phone] Encounter Details Date Type Department Care Team (Late st Contact Info) Description 10/30/2023 9:30 AM EST [facility] [address], [place] [id number] Anjali Alanis LCSW [address] [place] [address] No diagnosis on [place] I* Allergies Active Allergy Reactions Criticality Noted Date Comments Adhesive Tape 07/02/2017 Can tolerate band-aids Glycerin Other (Please comment) 03/12/2008 Topical agents with glycein-burning & itching Lactose 12/09/2014 Dairy - gas Lisinopril Cough 01/21/2010 Monosodium Glutamate Edema Other 03/12/2008 Hands and feet Penicillins Rash 11/14/2007 documented as of this encounter (statuses as of 10/30/2023) Medications Medication Sig Dispensed Refills Start Date [...] hypoglycemia E11.9 100 Tab 3 07/06/2021 Active [place] acquired by Cellfish/BandsintownTouch Verio w/Device Kit Use up to 4 [...] ER 10 MEQ Oral Tablet Extended ReleaseIndications:Ac duckwater on chronic heart failure with preserved ejection fraction (HFpEF) ([facility]) Take 1 Tablet by [...] of insulin ([facility]) Inject 30 Units under the skin at bedtime. 6 mL 2 07/31/2023 Active BD Pen Needle Short U/F 31G X 8 MMIndications:Type 2 diabetes mellitus with hemoglobin A1c goal of less than 7.0% ([facility]),Type 2 diabetes mellitus with stage 3a chronic kidney disease, with long-term current use of insulin ([facility]) Use with insulin 4 [...] of less than 7.0% ([facility]) Use up to 50 [...] daily. 400 g 3 10/02/2023 Active Nystatin 668693 UNIT/GM External Powder (Nystop)Indications:C andidal intertrigo Apply [...] of insulin ([facility]) Inject 2 mg under the skin once a week. 9 mL 3 10/01/2023 Active traZODone HCl 100 MG Oral Tablet (Desyrel) Take 1 Tablet by mouth at bedtime. 0 Active Dexcom G6 TransmitterIndication s:Type 2 diabetes mellitus with hemoglobin A1c goal of less than 7.0% ([facility]) Use as directed. Use 1 transmitter every 90 days E 11.9 1 Each 3 10/18/2023 Active Dexcom G6 SensorIndications:Typ e 2 diabetes mellitus with hemoglobin A1c goal of less than 7.0% ([facility]) Use as directed. Use 1 sensor every 10 days E 11.9 9 Each 3 10/18/2023 Active Gabapentin 100 MG Oral Capsule (Neurontin)Indication s:Polyneuropathy associated with underlying disease (HCC) TAKE 1 CAPSULE BY MOUTH EVERY DAY IN THE MORNING , AT NOON, AND BEFORE BEDTIME 90 Capsule 0 10/23/2023 Active documented as of this encounter (statuses as of 10/30/2023) Active Problems Problem Noted Date Diagnosed Date [...] as of this encounter (statuses as of 10/30/2023) Resolved Problems Problem Noted Date Diagnosed Date [...] 12/21/2016 Diabetes mellitus 01/05/2014 12/21/2016 LEYVA RESEARCH OTHER*[id number] 01/05/2014 12/21/2016 Axillary pain 11/03/2013 12/21/2016 Obesity, [...] 12/21/2016 FOLLOWING SURGERY, UNSPECIFI ED ([facility] BSO 08/25/2011) 08/26/2011 12/21/2016 ADVANCE DIRECTIVE INFORMATION 04/17/2011 12/21/2016 Overview: Yes, Patient instructed to provide copy of advance directive for provider to review and to be scanned into Electronic Medical Record ADVANCE DIRECTIVE INFORMATION 03/01/2011 12/21/2016 Overview: Yes, Patient instructed to provide copy of advance directive for provider to review and to be scanned into Electronic Medical Record [facility] V710 Clinical Trial*[id number] 12/22/2010 04/14/2011 S/P aortic valve replacement 12/01/2010 08/26/2011 S/P AORTIC VALVE REPLACEMENT - #25 pericardial Mc valve 11/01/2010 06/28/2018 Overview: Aortic valve replacement with #25 pericardial Mc valve, model 2800TFX, serial number [id number] (Dr. Walker) [facility] V710 Clinical Trial*[id number] 10/18/2010 11/21/2010 Body mass index (BMI) of [...] as of this encounter (statuses as of 10/30/2023) Immunizations Name Administration Dates Next Due COVID-19 mRNA, LNP-s, No Pre serve, 2-Dose Series (Moderna) 10/25/2021,02/16/2021,01/18/2021 HEP A - Hepatitis A (Adult > 18 yrs) 06/07/2018, 12/05/2017 Hepatitis B, 20+ yrs 06/07/2018,01/08/20 18,12/05/2017,06/15,10/27/2013,09/12/2013 Pneumococcal Conjugate Vacci ne, 20-valent ([id number]) 06/22/2023 Pneumococcal Polysaccharide PPV23 (Pneumovax) 01/02/2008 Seasonal [...] as of this encounter Progress Notes * Anjali Alanis LCSW - 10/30/2023 9:43 AM EST Patient was in the hospital. Her daughter showed for the video. Patient was rescheduled for December 10 and put on the wait list in case we had any openings before then. documented in this encounter Plan of Treatment Upcoming Encounters Date Type Department Care Team (Latest Contact Info) Description 11/21/2023 9:20 AM EST Office Visit Family [facility] [address] [address] Gregory Rausch MD [address] [address] 11/23/2023 6:10 PM EST Pharmacy Pharmacy, [facility] [address] [place] [address] Pharmacist1, [facility] [address] [place] [address] 12/03/2023 12:30 PM EDT Home Visit [facility] [address] [address] Jaycee Sorto, RN [address] [place] [address] 12/05/2023 10:24 AM EDT Hospital Encounter [facility], Operating Room [facility] [address] [place] [phone] Ramsey Burnett, [address] [address] 12/05/2023 10:24 AM EDT - 12/05/2023 11:17 AM EDT Surgery [facility], Operating Room [facility] [address] [place] [phone] Ramsey Burnett DO [address] [address] LEFT EXTRACAPSULAR CATARACT REMOVAL COMPLEX WITH IOL 12/06/2023 8:45 AM EDT Office Visit Ophthalmology, [facility] [address] [place] [address] Ramsey Burnett DO [address] [address] 12/11/2023 10:30 AM EDT Telemedicine [facility] [address] [place] [address] Anjali Alanis [facility] [address] [place] [address] 12/14/2023 1:15 PM EDT Office Visit [facility] [address] [address] Ramsey Burnett, [address] [address] 01/11/2024 1:15 PM EDT Office Visit [facility] [address] [address] Ramsey Burnett DO [address] [address] 02/04/2024 10:20 AM EDT Office Visit [facility] [address] [place] [address] Gregory Rausch MD [address] [place] [address] Scheduled Procedures Name Priority Associated Diagnoses Date/Ti me EXTRACAPSULAR CATARACT REMOV AL COMPLEX WITH IOL Cataract 12/05/2023 10:24 AM EDT COLONOSCOPY FLEXIBLE PROXIMA L DIAGNOSTIC Recall History of colon polyps ESOPHAGOGASTRODUODENOSCOPY ( EGD), FLEXIBLE, TRANSORAL, DIAGNOSTIC Recall Cirrhosis (HCC) COLONOSCOPY FLEXIBLE PROXIMA L DIAGNOSTIC Recall Personal history of colonic polyps Scheduled Referrals Name Type Priority Associated Diagnoses Orde r Schedule PSYCHOLOGY REFERRAL OP Referral Within 10 days (routine) ANIVAL (generalized anxiety disorder) Ordered: 07/12/2022 ADULT/PEDS PSYCHIATRY REFERRAL OP Referral Within 30 days (routine) Schizoaffective disorder, bipolar type (HCC) History of breast cancer History of colon cancer Ordered: 06/08/2023 Health Maintenance Due Date Last Done Comments [...] Additional history exists CKD PHOS USE SMARTSET 15562 06/18/2024 09/2 01/2023, 06/16/2023, 06/15/2023, Additional history exists Diabetic Eye Exam 09/13/2024 09/13/2023, , 09/13/2023, Additional history exists B-12 09/18/2024 09/18/2023, 08/24, 2020, Additional history exists CKD HGB USE SMARTSET 13868 10/15/202410/15, 07/31/2023, 07/31/2023, Additional history exists TSH [...] this encounter Medical Devices Implanted Type Area Business Practices Officer Device Identifier Shelf Expiration Date Model / Serial / Lot Cath Roselia Single Lumen - [id number] Implanted:Qty : 1 on 03/12/2008 at OR [facility] Left: Chest [facility] *DO NOT USE* 07/25/2012 21-4053-24 / / [id number] Valve Tarsha Aortic [id number] - [id number] Implanted:Qty : 1 on 11/01/2010 at OR [facility] N/A: Heart [employer] 05/20/2012 2800TFX-25 / / [id number] Mesh Soft [id number] - [id number] Implanted:Qty : 1 on 10/10/2019 by Gigi Hendrickson MD at OR [facility] N/A: Abdomen CR BARD : DAVOL [id number] 05/21/2024 [id number] / / [id number] Lens 22.5 Sn60wf - [id number] - [id number] Implanted:Qty : 1 on 09/15/2020 by Cece Roland MD at OR [facility] Right: Eye IVA : SURGICAL [id number] 05/13/2025 SN60 WF.225 / [id number] / [id number] documented as of this encounter Visit Diagnoses Diagnosis No diagnosis on [place] I- Primary Observation of other suspected mental condition Cataract Unspecified cataract documented in this encounter [...] the patient have Health Care Power of Child Support Specialist? No Full Code 10/10/2019 8:40 AM 10/10/2019 5:53 PM This order reflects the patients wishes and were consensually agreed upon. Full Code 11/06/2017 4:55 PM 11/07/2017 7:14 PM This order reflects the patients wishes and were consensually agreed upon. Healthcare Agents on File Name Relationship Healthcare Agent Relationshi p Communication [facility] Child Health Care Repr esentative (appointed verbally by patient or by statute hierarchy) Care Teams Erco Machine Operator Relationship Specialty Start Date End Date Gregory Rausch MD [address] [place] [address] PCP - General Family Medicine 02/12/20 documented as of this encounter
--- OUTSIDE RECORDS SUMMARY | 2023-11-10 12:03 | External Medical Summary | Summary of Care ---
Author Name Unknown Organization [facility] Address [address] [place] [address] Phone [phone] Care Team Providers Care Meat Press Operator Name Role Phone Gregory Rausch MD Primary Care Provider [phone] Reason for Visit * Reason Onset Date Comments [facility]: Maintenance 10/28/2023 Encounter Details Date Type Department Care Team (Late st Contact Info) Description 10/28/2023 3:00 PM EST Scheduled Telephone [facility], [facility] [address] [place] [address] [facility], Nurse [facility] [address] [place] [address] Allergies Active Allergy Reactions Criticality Noted Date Comments Adhesive Tape 07/02/2017 Can tolerate band-aids Glycerin Other (Please comment) 03/12/2008 Topical agents with glycein-burning & itching Lactose 12/09/2014 Dairy - gas Lisinopril Cough 01/21/2010 Monosodium Glutamate Edema Other 03/12/2008 Hands and feet Penicillins Rash 11/14/2007 documented as of this encounter (statuses as of 10/29/2023) Medications Medication Sig Dispensed Refills Start Date [...] hypoglycemia E11.9 100 Tab 3 07/06/2021 Active Topsy LabsTouch Verio w/Device Kit Use up to [...] hemoglobin A1c goal of less than 7.0% ([facility]),Type 2 diabetes mellitus with stage 3a chronic kidney disease, with long-term current use of insulin ([facility]) Inject 30 Units under the skin at bedtime. 6 mL 2 07/31/2023 Active BD Pen Needle Short U/F 31G X 8 MMIndications:Type 2 diabetes mellitus with hemoglobin A1c goal of less than 7.0% ([facility]),Type 2 diabetes mellitus with stage 3a chronic kidney disease, with long-term current use of insulin ([facility]) Use with insulin 4 times daily 400 Each 3 07/31/2023 Active Gaviscon 80-14.2 MG Oral Tablet Chewable (Alum Hydroxide-Mag Trisilicate) Take by mouth as needed. 0 Active Atorvastatin Calcium 40 MG Oral Tablet (Lipitor)Indications: Heart failure, systolic, due to idiopathic cardiomyopathy ([facility]),S/P aortic valve replacement,HTN, goal below 140/80,Dyslipidemia, goal [...] hemoglobin A1c goal of less than 7.0% ([facility]) Use up to 50 units per day [...] heart failure with preserved ejection fraction (HFpEF) ([facility]) One tablet one morning twice per week (Sunday and Sunday), 30 minutes prior to torsemide dose 30 Tablet 3 10/02/2023 Active Ammonium Lactate 12 % External Lotion (Lac-Hydrin) Apply to both feet once daily. 400 g 3 10/02/2023 Active Nystatin 978017 UNIT/GM External Powder (Nystop)Indications:C andidal intertrigo Apply [...] hemoglobin A1c goal of less than 7.0% ([facility]),Type 2 diabetes mellitus with diabetic mononeuropathy, with long-term current use of insulin ([facility]),Type 2 diabetes mellitus with both eyes affected by mild nonproliferative retinopathy and macular edema, with long-term current use of insulin ([facility]),Type 2 diabetes mellitus with stage 3a chronic kidney disease, with long-term current use of insulin ([facility]) Inject 2 mg under the skin once a week. 9 mL 3 10/01/2023 Active traZODone HCl 100 MG Oral Tablet (Desyrel) Take 1 Tablet by mouth at bedtime. 0 Active Dexcom G6 TransmitterIndication s:Type 2 diabetes mellitus with hemoglobin A1c goal of less than 7.0% ([facility]) Use as directed. Use 1 transmitter every 90 days E 11.9 1 Each 3 10/18/2023 Active Dexcom G6 SensorIndications:Typ e 2 diabetes mellitus with hemoglobin A1c goal of less than 7.0% ([facility]) Use as directed. Use 1 sensor every 10 days E 11.9 9 Each 3 10/18/2023 Active Gabapentin 100 MG Oral Capsule (Neurontin)Indication s:Polyneuropathy associated with underlying disease (HCC) TAKE 1 CAPSULE BY MOUTH EVERY DAY IN THE MORNING , AT NOON, AND BEFORE BEDTIME 90 Capsule 0 10/23/2023 Active documented as of this encounter (statuses as of 10/29/2023) Active Problems Problem Noted Date Diagnosed Date [...] eye 09/28/2020 Coronary artery disease invo lving nome coronary artery of nome heart without angina pectoris 12/16/2019 Last Assessment [...] as of this encounter (statuses as of 10/29/2023) Resolved Problems Problem Noted Date Diagnosed Date [...] 12/21/2016 Diabetes mellitus 01/05/2014 12/21/2016 LEYVA RESEARCH OTHER*[id number] 01/05/2014 12/21/2016 Axillary pain 11/03/2013 12/21/2016 Obesity, [...] 12/21/2016 FOLLOWING SURGERY, UNSPECIFI ED ([facility] BSO 08/25/2011) 08/26/2011 12/21/2016 ADVANCE DIRECTIVE INFORMATION 04/17/2011 12/21/2016 Overview: Yes, Patient instructed to provide copy of advance directive for provider to review and to be scanned into Electronic Medical Record ADVANCE DIRECTIVE INFORMATION 03/01/2011 12/21/2016 Overview: Yes, Patient instructed to provide copy of advance directive for provider to review and to be scanned into Electronic Medical Record [facility] V710 Clinical Trial*[id number] 12/22/2010 04/14/2011 S/P aortic valve replacement 12/01/2010 08/26/2011 S/P AORTIC VALVE REPLACEMENT - #25 pericardial Mc valve 11/01/2010 06/28/2018 Overview: Aortic valve replacement with #25 pericardial Mc valve, model 2800TFX, serial number [id number] (Dr. Walker) [facility] V710 Clinical Trial*[id number] 10/18/2010 11/21/2010 Body mass index (BMI) of [...] as of this encounter (statuses as of 10/29/2023) Immunizations Name Administration Dates Next Due COVID-19 mRNA, LNP-s, No Pre serve, 2-Dose Series (Moderna) 10/25/2021,02/16/2021,01/18/2021 HEP A - Hepatitis A (Adult > 18 yrs) 06/07/2018, 12/05/2017 Hepatitis B, 20+ yrs 06/07/2018,01/08/20 18,12/05/2017,06/15,10/27/2013,09/12/2013 Pneumococcal Conjugate Vacci ne, 20-valent ([id number]) 06/22/2023 Pneumococcal Polysaccharide PPV23 (Pneumovax) 01/02/2008 Seasonal [...] Telephone Encounter - Kenia Tapia LPN - 10/29/2023 2:16 PM EST Patient admitted to [facility] Kenia Tapia LPN [facility] 10/29/2023,2:16 PM * Telephone Encounter - Angelica Welch RN - 10/28/2023 11:28 AM EST Communication Note Name: Jovita oRse Situation: pt on for follow up call to check disposition after ED. Background: Patient called into [facility] yesterday to report nose bleed >10 minutes with dizziness. ED was recommended. Assessment: Upon review of [facility] EMR, it's noted that patient was admitted 10/27/23 with dx of PAF, hypokalemia, hyponatremia, HF, metabolic alkalosis. Recommendation/ Plan: Sharing with care team as FYI Added to shared hospital list documented in this encounter Plan of Treatment Upcoming Encounters Date Type Department Care Team (Latest Contact Info) Description 10/30/2023 9:30 AM EST [facility] [place] [address] [place] [address] Anjali Alanis LCSW [address] [place] [address] 11/21/2023 9:20 AM EST Office Visit Family Practice [facility] [address] [place] [address] Gregory Rausch MD [address] [place] [address] 11/23/2023 6:10 PM EST Pharmacy Pharmacy, [facility] [address] [facility] [place] [address] Pharmacist1, [facility] [address] [facility] [place] [address] 12/03/2023 12:30 PM EDT Home Visit [facility] [place], [facility] [address] [place] [address] Jaycee Sorto RN [address] [place] [address] 12/05/2023 10:24 AM EDT Hospital Encounter [facility], Operating Room [facility] [address] [phone] Ramsey Burnett, DO [address] [facility] [place] [address] 12/05/2023 10:24 AM EDT - 12/05/2023 11:17 AM EDT Surgery [facility], Operating Room [facility] [address] [phone] Ramsey Burnett, DO [address] [facility] [place] [address] LEFT EXTRACAPSULAR CATARACT REMOVAL COMPLEX WITH IOL 12/06/2023 8:45 AM EDT Office Visit Ophthalmology, [facility] [address] [address] Ramsey Burnett, DO [address] [facility] [address] [place] [address] 12/14/2023 1:15 PM EDT Office Visit Ophthalmology, [place] [address] [place] [address] Ramsey Burnett, DO [address] [place] [address] 01/11/2024 1:15 PM EDT Office Visit Ophthalmology, [place] [address] [place] [address] Ramsey Burnett, [address] [place] [address] 02/04/2024 10:20 AM EDT Office Visit [facility] [address] [place] [address] Gregory Rausch MD [address] [place] [address] Scheduled Procedures Name Priority Associated Diagnoses Date/Ti [...] season) 2023 10/25/2021, 02/16/2021, 01/18/2021 Albumin/Creatinine Ratio 03/09/202403/09/ 023, 12/22/2022, 05/05/2021, Additional history exists HbA1c 03/19/2024 09/18/2023, 11/0 03/2023, 04/09/2023, Additional history exists GFR 04/14/2024 10/15/2023, 11/0 05/2023, 07/31/2023, Additional history exists CKD PHOS USE SMARTSET 00120 06/18/2024 09/01/2023, 06/16/2023, 06/15/2023, Additional history exists Diabetic Eye Exam 09/13/2024 09/13/2023, , 09/13/2023, Additional history exists B-12 09/18/2024 09/18/2023, 08/24, 2020, Additional history exists CKD HGB USE SMARTSET 51139 10/15/202410/15, 07/31/2023, 07/31/2023, Additional history exists TSH [...] this encounter Medical Devices Implanted Type Area Pathology Supervisor Device Identifier Shelf Expiration Date Model / Serial / Lot Cath Roselia Single Lumen - [id number] Implanted:Qty : 1 on 03/12/2008 at OR [facility] Left: Chest [employer] *DO NOT USE* 07/25/2012 21-4053-24 / / [id number] Valve Tarsha Aortic [id number] - [id number] Implanted:Qty : 1 on 11/01/2010 at OR [facility] N/A: Heart [employer] 05/20/2012 2800TFX-25 / / [id number] Mesh Soft [id number] - [id number] Implanted:Qty : 1 on 10/10/2019 by Gigi Hendrickson MD at OR [facility] N/A: Abdomen CR BARD : DAVOL [id number] 05/21/2024 [id number] / / [id number] Lens 22.5 Sn60wf - [id number] - [id number] Implanted:Qty : 1 on 09/15/2020 by Renaldo Cook, Cece Acosta MD at OR [facility] Right: Eye IVA : SURGICAL [id number] 05/13/2025 SN60 WF.225 / [id number] / [id number] documented as of this encounter Advance [...] the patient have Health Care Power of Degreasing Wheel Operator? No Full Code 10/10/2019 8:40 AM [...] patient or by statute hierarchy) Care Teams Meat Press Operator Relationship Specialty Start Date End Date Gregory Rausch MD [address] [address] PCP - General Family Medicine 02/12/20 documented as of this encounter
[2023-11-10] MEDS: INSULIN ASPART PER UNIT CHARGE SC SCH (12:05)
[2023-11-10] MEDS: ADVANCED PROBIOTIC 1250 MG CAPSULE PO SCH (14:11)
[2023-11-10] MEDS ORDERED: VANCOMYCIN HCL 125 MG/2.5ML SOLN PO SCH (18:00)
--- NOTE | 2023-11-10 18:08 | Electrocardiogram Report ---
Test Reason : Blood Pressure : / mmHG Vent. Rate : 108 BPM Atrial Rate : 108 BPM P-R Int : 194 ms QRS Dur : 082 ms QT Int : 358 ms P-R-T Axes : 094 -43 091 degrees QTc Int : 479 ms Sinus tachycardia with Premature atrial complexes Left axis deviation Pulmonary disease pattern Minimal voltage criteria for LVH, may be normal variant ( R in aVL ) Septal infarct , age undetermined Abnormal ECG When compared with ECG of 28-OCT-2023 05:36, QT has shortened Confirmed by Reji Galvin ([id number]) on 11/10/2023 6:07:58 PM Referred By: REFERRED SELF Confirmed By:Reji Galvin
[2023-11-10] MEDS: VANCOMYCIN HCL 250 MG/5 ML SOLN PO SCH (18:39)
[2023-11-10] MEDS: traZODone HCL 100 MG TAB PO SCH (20:31)
[2023-11-10] MEDS: MELATONIN 3 MG TAB PO SCH (20:31)
[2023-11-11 04:28] LABS: Hematocrit (blood only) 32.8 % (37.0-47.0); Hemoglobin 10.7 g/dl (12.0-16.0); Mean Corpuscular Hemoglobin 25.9 pg (25.0-34.0); Mean Corpuscular Hgb Conc 32.6 g/dL (32.0-36.0); Mean Corpuscular Volume 79.4 fL (80.0-100.0); Mean Platelet Volume 10.4 fL (9.4-12.4); Platelet Count 105 K/uL (130-400); RDW Coefficient of Variation 16.2 % (11.5-14.5); RDW Standard Deviation 46.7 fL (36.4-46.3); Red Blood Count 4.13 M/uL (4.20-5.40); White Blood Count 9.03 K/ul (4.8-10.8)
[2023-11-11 04:41] LABS: BUN Creatinine Ratio 10.5 (10-20); Calcium 8.9 mg/dl (8.6-10.3); Creatinine Clr Calc Pharmacy 59.1 ml/min; Est GFR (African American) 82.7 ml/min; Est GFR (Non-African American) 71.4 ml/min; Magnesium 1.7 mg/dl (1.7-2.4); Phosphorus 2.8 mg/dl (2.5-4.9); Potassium 3.3 mmol/L (3.5-5.1)
--- NOTE | 2023-11-11 07:53 | Hospitalist Progress Note ---
Date of Service November 11, 2023 Assessment & Plan (1) Weakness: Plan: 62 yo F with past medical history significant for type 2 diabetes, hypothyroidism, hyperlipidemia, aortic stenosis s/p TAVR in 2017, CAD s/p drug- eluting stent to LAD, heart failure with preserved ejection fraction, cirrhosis secondary to [place], hypertension, questionable paroxysmal atrial fibrillation, obstructive sleep apnea intolerant to CPAP, CKD stage III, benign paroxysmal positional vertigo due to bilateral vestibular disorder, history of schizoaffective disorder, history of breast and colon cancer, history of GI bleed, history of C. difficile infection, history of COVID, history of splenic infarcts, recent ZIO showing no definitive atrial fibrillation and was recently in the hospital for vertigo and hyponatremia and hyperglycemia and hypokalemia and did okay and discharged to home comes because of weakness and also family felt she was somewhat confused. Patient is currently alert and oriented x 3. States she felt dizzy. Feeling weak. Daughter advised her to go to the hospital. Has headaches. Vision is blurry. No runny nose or sore throat. No cough. No fevers. No chest pain or shortness of breath. Currently no nausea. No abdominal pain. Having normal bowel and bladder movements as per patient. Ambulates with walker. Eating okay. Lives alone. Son's lives close by. Hemodynamics are okay. Weakness Possible confusion + C. difficile UA negative Starting on p.o. vancomycin Gentle fluids normal saline 50 mill per hour for 1 L Lactic acid 2.6 but repeat is 1.9 Closely monitor PT OT when stable Diabetes Continue home long-acting insulin Sliding scale Will monitor CAD s/p stent On aspirin, statin, Plavix and beta-nayeli History of benign paroxysmal positional vertigo due to bilateral vestibular disorder On meclizine Hypothyroidism On Synthyroid History of heart failure with preserved ejection fraction Aortic stenosis s/p TAVR Monitor for volume overload History of colon cancer History of breast cancer S/p bilateral mastectomy, radiation History of schizoaffective disorder bipolar type On trazodone Seems recently medication discontinued because of polypharmacy DANYELLE CPAP nightly CKD stage III Creatinine 1.0 Will monitor Hypokalemia and hypomagnesia Replete and monitor Cirrhosis secondary to [place] Getting gentle fluids Not on diuretics ammonia level 25 wnl Monitor for volume overload Possible A-fib Zio patch no definitive A-fib Continue metoprolol DVT prophylaxis Heparin subcu Disposition Telemetry Full code Admission and Anticipated Discharge Date Admission Date: November 10, 2023 Subjective Pt seen in follow up of c. diff colitis Laying in bed in NAD Still feels very weak and has frequent diarrhea (about 4 stools a day). No fever, chills, chest pain , or shortness of breath. Review of Systems Review of Systems: All systems reviewed & are unremarkable except as noted in Subjective Physical Exam Physical Exam: General- WD/WN in NAD Head- atraumatic Eyes- PERRL. ENT- oropharynx clear Neck- supple, no JVD. Lungs- clear to auscultation no wheezing or crackles. Heart- regular rhythm; no murmur, no gallop. Abdomen- normal bowel sounds, soft, nontender, no distension. Extremities- no pretibial edema, no erythema seen. Neuro- alert, oriented PERRL,no facial palsy; no dysarthria; moves extremities. Skin- warm & dry Results & Data Results & Data Vital Signs (Past 12 Hours) Vital Signs Pulse Pulse Resp BP Pulse Ox O2 Del Method O2 Flow Rate 11/11/23 07:06 93 H 11/11/23 06:00 99 H 23 129/70 97 Nasal Cannula 2 11/11/23 03:00 101 H 22 135/95 97 Nasal Cannula 2 11/11/23 02:19 102 H 11/10/23 23:15 Nasal Cannula 2 11/10/23 23:00 98 H 20 114/69 97 Nasal Cannula 2 11/10/23 21:25 89 L Nasal Cannula 0 Laboratory Results 11/11/23 11/10/23 11/10/23 Range/Units 03:35 20:51 17:37 WBC 9.03 (4.8-10.8) K/ul RBC 4.13 L (4.20-5.40) M/uL Hgb 10.7 L (12.0-16.0) g/dl Hct 32.8 L (37.0-47.0) % MCV 79.4 L (80.0-100.0) fL MCH 25.9 (25.0-34.0) pg MCHC 32.6 (32.0-36.0) g/dL RDW Std Deviation 46.7 H (36.4-46.3) fL RDW Coeff of Valerio 16.2 H (11.5-14.5) % Plt Count 105 L (130-400) K/uL MPV 10.4 (9.4-12.4) fL Sodium 134 L (136-145) mmol/L Potassium 3.3 L (3.5-5.1) mmol/L Chloride 100 (98-107) mmol/L Carbon Dioxide 29 (21-32) mmol/L Anion Gap 5 (3-11) BUN 9 (6-23) mg/dl Creatinine 0.86 (0.6-1.2) mg/dl Est Cr Clr Drug Dosing 59.1 ml/min Est GFR ( Amer) 82.7 ml/min Est GFR (Non-Af Amer) 71.4 ml/min BUN/Creatinine Ratio 10.5 (10-20) Glucose 107 H (70-99(Fasting)) mg/dl POC Glucose 211 H 196 H (70-99) mg/dl Estimat Average Glucose mg/dl Hemoglobin A1c (4.5-5.6) % Calcium 8.9 (8.6-10.3) mg/dl Phosphorus 2.8 (2.5-4.9) mg/dl Magnesium 1.7 (1.7-2.4) mg/dl 11/10/23 11/10/23 11/10/23 Range/Units 13:27 09:29 07:09 WBC (4.8-10.8) K/ul RBC (4.20-5.40) M/uL Hgb (12.0-16.0) g/dl Hct (37.0-47.0) % MCV (80.0-100.0) fL MCH (25.0-34.0) pg MCHC (32.0-36.0) g/dL RDW Std Deviation (36.4-46.3) fL RDW Coeff of Valerio (11.5-14.5) % Plt Count (130-400) K/uL MPV (9.4-12.4) fL Sodium (136-145) mmol/L Potassium (3.5-5.1) mmol/L Chloride (98-107) mmol/L Carbon Dioxide (21-32) mmol/L Anion Gap (3-11) BUN (6-23) mg/dl Creatinine (0.6-1.2) mg/dl Est Cr Clr Drug Dosing ml/min Est GFR ( Amer) ml/min Est GFR (Non-Af Amer) ml/min BUN/Creatinine Ratio (10-20) Glucose (70-99(Fasting)) mg/dl POC Glucose 308 H* 297 H (70-99) mg/dl Estimat Average Glucose 206 mg/dl Hemoglobin A1c 8.8 H (4.5-5.6) % Calcium (8.6-10.3) mg/dl Phosphorus (2.5-4.9) mg/dl Magnesium (1.7-2.4) mg/dl Medications Administered Current Inpatient Medications Aspirin (Aspirin 81 Mg Ectab) 81 mg PO DAILY EVGENY Stop: 12/10/23 08:59 Last Admin: 11/10/23 09:22 Dose: 81 mg Atorvastatin Calcium (Atorvastatin 40 Mg Tab) 40 mg PO DAILY EVGENY Stop: 12/10/23 08:59 Last Admin: 11/10/23 09:22 Dose: 40 mg Gallardo Syrup (Gallardo Syrup 5 Ml Udp) 5 ml PO Q6 EVGENY Stop: 11/20/23 05:59 Last Admin: 11/11/23 06:05 Dose: 5 ml Clopidogrel Bisulfate (Clopidogrel Bisulfate 75 Mg Tab) 75 mg PO DAILY EVGENY Stop: 12/10/23 08:59 Last Admin: 11/10/23 09:22 Dose: 75 mg Dextrose (Dextrose 50% 50 Ml Syringe) 25 - 50 ml IV UD PRN; Protocol PRN Reason: Hypoglycemia Protocol Stop: 12/10/23 03:05 Fluticasone Propionate (Fluticasone Propionate Na Spr 16 Gm Btl) 2 sprays NA DAILY EVGENY Stop: 12/10/23 08:59 Last Admin: 11/10/23 09:23 Dose: 2 sprays Gabapentin (Gabapentin 100 Mg Cap) 100 mg PO TID EVGENY Stop: 12/10/23 08:59 Last Admin: 11/10/23 20:29 Dose: 100 mg Glucagon (Glucagon For Inj 1 Mg Vial) 1 mg SQ UD PRN; Protocol PRN Reason: Hypoglycemia Protocol Stop: 12/10/23 03:05 Glucose (Glucose 10 Tab/Tube) 4 - 8 tab PO UD PRN; Protocol PRN Reason: Hypoglycemia Treatment Stop: 12/10/23 03:05 Glucose (Glucose 40% Gel 15 Gm Tube) 15 - 30 gm PO UD PRN; Protocol PRN Reason: Hypoglycemia Protocol Stop: 12/10/23 03:05 Heparin Sodium (Porcine) (Heparin Sod 5,000 Unit/0.5 Ml Vial) 5,000 units SQ Q12 EVGENY Stop: 12/10/23 08:59 Last Admin: 11/10/23 20:30 Dose: 5,000 units Insulin Aspart (Insulin Aspart Per Unit Charge) 0 units SC ACHS EVGENY Stop: 12/10/23 07:29 Last Admin: 11/10/23 20:59 Dose: 3 units Insulin Glargine (Lantus Per Unit Charge) 30 units SQ HS EVGENY Stop: 12/10/23 08:59 Last Admin: 11/10/23 21:00 Dose: 30 units Lactic Acid (Ammonium Lactate 12% Lotion 225 Gm Btl) 1 gm EXT DAILY EVGENY Stop: 12/10/23 08:59 Last Admin: 11/10/23 09:24 Dose: 1 gm Lactobacillus Acidophilus (Advanced Probiotic 1250 Mg Capsule) 2 cap PO DAILY EVGENY Stop: 12/10/23 12:59 Last Admin: 11/10/23 14:11 Dose: 2 cap Levothyroxine Sodium (Levothyroxine Sodium 75 Mcg Tablet) 75 mcg PO DAILYBB EVGENY Stop: 12/10/23 06:29 Last Admin: 11/11/23 06:06 Dose: 75 mcg Magnesium Oxide (Magnesium Oxide 400 Mg Tab) 400 mg PO DAILY EVGENY Stop: 12/10/23 08:59 Last Admin: 11/10/23 09:22 Dose: 400 mg Meclizine HCl (Meclizine Hcl 25 Mg Tab) 50 mg PO BID EVGENY Stop: 12/10/23 08:59 Last Admin: 11/10/23 20:30 Dose: 50 mg Melatonin (Melatonin 3 Mg Tab) 9 mg PO HS EVGENY Stop: 12/10/23 20:59 Last Admin: 11/10/23 20:31 Dose: 9 mg Metoprolol Tartrate (Metoprolol Tartrate 25 Mg Tab) 25 mg PO BID EVGENY Stop: 12/10/23 08:59 Last Admin: 11/10/23 20:30 Dose: 25 mg Miscellaneous (Carbohydrates For Hypoglycemia ) 15 - 30 gm PO UD PRN PRN Reason: Hypoglycemia Protocol Stop: 12/10/23 03:05 Multivitamins/Minerals (Cerovite Adv Formula Tab) 1 tab PO DAILY EVGENY Stop: 12/10/23 08:59 Last Admin: 11/10/23 09:23 Dose: 1 tab Nitroglycerin (Nitroglycerin Sl 0.4 Mg/Tab Tab) 0.4 mg SL Q5M PRN PRN Reason: Chest Pain Stop: 12/10/23 03:05 Potassium Chloride (Potassium Chloride Crtab 20 Meq Tabcr) 40 meq PO NOW STA Stop: 11/11/23 07:53 Trazodone HCl (Trazodone Hcl 100 Mg Tab) 100 mg PO HS EVGENY Stop: 12/10/23 20:59 Last Admin: 11/10/23 20:31 Dose: 100 mg Vancomycin HCl (Vancomycin Hcl 250 Mg/5 Ml Soln) 250 mg PO Q6 EVGENY Stop: 11/20/23 17:59 Last Admin: 11/11/23 06:05 Dose: 250 mg
[2023-11-11] MEDS: POTASSIUM CHLORIDE CRTAB 20 MEQ TABCR PO STA (08:13)
[2023-11-12 08:13] LABS: Hematocrit (blood only) 32.7 % (37.0-47.0); Hemoglobin 10.4 g/dl (12.0-16.0); Mean Corpuscular Hemoglobin 25.2 pg (25.0-34.0); Mean Corpuscular Hgb Conc 31.8 g/dL (32.0-36.0); Mean Corpuscular Volume 79.2 fL (80.0-100.0); Mean Platelet Volume 10.3 fL (9.4-12.4); Platelet Count 111 K/uL (130-400); RDW Coefficient of Variation 16.1 % (11.5-14.5); RDW Standard Deviation 46.5 fL (36.4-46.3); Red Blood Count 4.13 M/uL (4.20-5.40); White Blood Count 5.99 K/ul (4.8-10.8)
[2023-11-12 08:41] LABS: BUN Creatinine Ratio 11.7 (10-20); Calcium 8.7 mg/dl (8.6-10.3); Creatinine Clr Calc Pharmacy 52.3 ml/min; Est GFR (African American) 74.3 ml/min; Est GFR (Non-African American) 64.1 ml/min; Magnesium 1.6 mg/dl (1.7-2.4); Phosphorus 3.1 mg/dl (2.5-4.9); Potassium 3.4 mmol/L (3.5-5.1)
--- NOTE | 2023-11-12 08:54 | Hospitalist Progress Note ---
Date of Service November 12, 2023 Assessment & Plan (1) Weakness: Plan: 62 yo F with past medical history significant for type 2 diabetes, hypothyroidism, hyperlipidemia, aortic stenosis s/p TAVR in 2017, CAD s/p drug- eluting stent to LAD, heart failure with preserved ejection fraction, cirrhosis secondary to [place], hypertension, questionable paroxysmal atrial fibrillation, obstructive sleep apnea intolerant to CPAP, CKD stage III, benign paroxysmal positional vertigo due to bilateral vestibular disorder, history of schizoaffective disorder, history of breast and colon cancer, history of GI bleed, history of C. difficile infection, history of COVID, history of splenic infarcts, recent ZIO showing no definitive atrial fibrillation and was recently in the hospital for vertigo and hyponatremia and hyperglycemia and hypokalemia and did okay and discharged to home comes because of weakness and also family felt she was somewhat confused. Patient is currently alert and oriented x 3. States she felt dizzy. Feeling weak. Daughter advised her to go to the hospital. Has headaches. Vision is blurry. No runny nose or sore throat. No cough. No fevers. No chest pain or shortness of breath. Currently no nausea. No abdominal pain. Having normal bowel and bladder movements as per patient. Ambulates with walker. Eating okay. Lives alone. Son's lives close by. Hemodynamics are okay. Weakness Possible confusion + C. difficile UA negative Cont. p.o. vancomycin Gentle fluids normal saline 50 mill per hour for 1 L Lactic acid 2.6 but repeat is 1.9 Closely monitor PT OT when stable Diabetes Continue home long-acting insulin Sliding scale Will monitor CAD s/p stent On aspirin, statin, Plavix and beta-nayeli History of benign paroxysmal positional vertigo due to bilateral vestibular disorder On meclizine Hypothyroidism On Synthyroid History of heart failure with preserved ejection fraction Aortic stenosis s/p TAVR Monitor for volume overload History of colon cancer History of breast cancer S/p bilateral mastectomy, radiation History of schizoaffective disorder bipolar type On trazodone Seems recently medication discontinued because of polypharmacy DANYELLE CPAP nightly CKD stage III Creatinine 1.0 Will monitor Hypokalemia and hypomagnesia Replete and monitor Cirrhosis secondary to [place] Getting gentle fluids Not on diuretics ammonia level 25 wnl Monitor for volume overload Possible A-fib Zio patch no definitive A-fib Continue metoprolol DVT prophylaxis Heparin subcu Disposition Telemetry Full code Admission and Anticipated Discharge Date Admission Date: November 10, 2023 Subjective Pt seen in follow up of c. diff colitis Sitting up in bed in NAD, just walked out of the bathroom Still feels weak and has watery diarrhea No fever, chills, chest pain , or shortness of breath. nausea / vomiting seems resolved. Review of Systems Review of Systems: All systems reviewed & are unremarkable except as noted in Subjective Physical Exam Physical Exam: General- WD/WN in NAD Head- atraumatic Eyes- PERRL. ENT- oropharynx clear Neck- supple, no JVD. Lungs- clear to auscultation no wheezing or crackles. Heart- regular rhythm; no murmur, no gallop. Abdomen- normal bowel sounds, soft, nontender, no distension. Extremities- no pretibial edema, no erythema seen. Neuro- alert, oriented PERRL,no facial palsy; no dysarthria; moves extremities. Skin- warm & dry Results & Data Results & Data Vital Signs (Past 12 Hours) Vital Signs Temp Pulse Pulse Resp BP Pulse Ox O2 Del Method 11/12/23 07:49 37.1 C 81 16 111/57 L 92 Room Air 11/12/23 07:28 81 11/12/23 04:28 37 C 69 16 116/67 93 Room Air 11/12/23 00:11 83 11/11/23 22:47 Nasal Cannula 11/11/23 22:41 36.8 C 82 16 105/56 L 94 Room Air Laboratory Results 11/12/23 11/12/23 11/11/23 Range/Units 07:58 07:34 20:12 WBC 5.99 (4.8-10.8) K/ul RBC 4.13 L (4.20-5.40) M/uL Hgb 10.4 L (12.0-16.0) g/dl Hct 32.7 L (37.0-47.0) % MCV 79.2 L (80.0-100.0) fL MCH 25.2 (25.0-34.0) pg MCHC 31.8 L (32.0-36.0) g/dL RDW Std Deviation 46.5 H (36.4-46.3) fL RDW Coeff of Valerio 16.1 H (11.5-14.5) % Plt Count 111 L (130-400) K/uL MPV 10.3 (9.4-12.4) fL Sodium 135 L (136-145) mmol/L Potassium 3.4 L (3.5-5.1) mmol/L Chloride 101 (98-107) mmol/L Carbon Dioxide 28 (21-32) mmol/L Anion Gap 6 (3-11) BUN 11 (6-23) mg/dl Creatinine 0.94 (0.6-1.2) mg/dl Est Cr Clr Drug Dosing 52.3 ml/min Est GFR ( Amer) 74.3 ml/min Est GFR (Non-Af Amer) 64.1 ml/min BUN/Creatinine Ratio 11.7 (10-20) Glucose 133 H (70-99(Fasting)) mg/dl POC Glucose 122 H 204 H (70-99) mg/dl Calcium 8.7 (8.6-10.3) mg/dl Phosphorus 3.1 (2.5-4.9) mg/dl Magnesium 1.6 L (1.7-2.4) mg/dl 11/11/23 11/11/23 11/11/23 Range/Units 17:15 12:08 11:50 WBC (4.8-10.8) K/ul RBC (4.20-5.40) M/uL Hgb (12.0-16.0) g/dl Hct (37.0-47.0) % MCV (80.0-100.0) fL MCH (25.0-34.0) pg MCHC (32.0-36.0) g/dL RDW Std Deviation (36.4-46.3) fL RDW Coeff of Valerio (11.5-14.5) % Plt Count (130-400) K/uL MPV (9.4-12.4) fL Sodium (136-145) mmol/L Potassium (3.5-5.1) mmol/L Chloride (98-107) mmol/L Carbon Dioxide (21-32) mmol/L Anion Gap (3-11) BUN (6-23) mg/dl Creatinine (0.6-1.2) mg/dl Est Cr Clr Drug Dosing ml/min Est GFR ( Amer) ml/min Est GFR (Non-Af Amer) ml/min BUN/Creatinine Ratio (10-20) Glucose (70-99(Fasting)) mg/dl POC Glucose 271 H 253 H 238 H (70-99) mg/dl Calcium (8.6-10.3) mg/dl Phosphorus (2.5-4.9) mg/dl Magnesium (1.7-2.4) mg/dl Medications Administered Current Inpatient Medications Aspirin (Aspirin 81 Mg Ectab) 81 mg PO DAILY EVGENY Stop: 12/10/23 08:59 Last Admin: 11/12/23 08:51 Dose: 81 mg Atorvastatin Calcium (Atorvastatin 40 Mg Tab) 40 mg PO DAILY EVGENY Stop: 12/10/23 08:59 Last Admin: 11/12/23 08:50 Dose: 40 mg Gallardo Syrup (Gallardo Syrup 5 Ml Udp) 5 ml PO Q6 EVGENY Stop: 11/20/23 05:59 Last Admin: 11/12/23 05:53 Dose: 5 ml Clopidogrel Bisulfate (Clopidogrel Bisulfate 75 Mg Tab) 75 mg PO DAILY EVGENY Stop: 12/10/23 08:59 Last Admin: 11/12/23 08:50 Dose: 75 mg Dextrose (Dextrose 50% 50 Ml Syringe) 25 - 50 ml IV UD PRN; Protocol PRN Reason: Hypoglycemia Protocol Stop: 12/10/23 03:05 Fluticasone Propionate (Fluticasone Propionate Na Spr 16 Gm Btl) 2 sprays NA DAILY EVGENY Stop: 12/10/23 08:59 Last Admin: 11/12/23 08:51 Dose: 2 sprays Gabapentin (Gabapentin 100 Mg Cap) 100 mg PO TID EVGENY Stop: 12/10/23 08:59 Last Admin: 11/12/23 08:50 Dose: 100 mg Glucagon (Glucagon For Inj 1 Mg Vial) 1 mg SQ UD PRN; Protocol PRN Reason: Hypoglycemia Protocol Stop: 12/10/23 03:05 Glucose (Glucose 10 Tab/Tube) 4 - 8 tab PO UD PRN; Protocol PRN Reason: Hypoglycemia Treatment Stop: 12/10/23 03:05 Glucose (Glucose 40% Gel 15 Gm Tube) 15 - 30 gm PO UD PRN; Protocol PRN Reason: Hypoglycemia Protocol Stop: 12/10/23 03:05 Heparin Sodium (Porcine) (Heparin Sod 5,000 Unit/0.5 Ml Vial) 5,000 units SQ Q12 EVGENY Stop: 12/10/23 08:59 Last Admin: 11/12/23 08:50 Dose: 5,000 units Insulin Aspart (Insulin Aspart Per Unit Charge) 0 units SC ACHS EVGENY Stop: 12/10/23 07:29 Last Admin: 11/12/23 08:48 Dose: 4 units Insulin Glargine (Lantus Per Unit Charge) 30 units SQ HS EVGENY Stop: 12/10/23 08:59 Last Admin: 11/11/23 20:28 Dose: 30 units Lactic Acid (Ammonium Lactate 12% Lotion 225 Gm Btl) 1 gm EXT DAILY EVGENY Stop: 12/10/23 08:59 Last Admin: 11/12/23 08:52 Dose: 1 gm Lactobacillus Acidophilus (Advanced Probiotic 1250 Mg Capsule) 2 cap PO DAILY EVGENY Stop: 12/10/23 12:59 Last Admin: 11/12/23 08:49 Dose: 2 cap Levothyroxine Sodium (Levothyroxine Sodium 75 Mcg Tablet) 75 mcg PO DAILYBB EVGENY Stop: 12/10/23 06:29 Last Admin: 11/12/23 05:53 Dose: 75 mcg Magnesium Oxide (Magnesium Oxide 400 Mg Tab) 400 mg PO DAILY EVGENY Stop: 12/10/23 08:59 Last Admin: 11/12/23 08:49 Dose: 400 mg Meclizine HCl (Meclizine Hcl 25 Mg Tab) 50 mg PO BID EVGENY Stop: 12/10/23 08:59 Last Admin: 11/12/23 08:49 Dose: 50 mg Melatonin (Melatonin 3 Mg Tab) 9 mg PO HS EVGENY Stop: 12/10/23 20:59 Last Admin: 11/11/23 19:49 Dose: 9 mg Metoprolol Tartrate (Metoprolol Tartrate 25 Mg Tab) 25 mg PO BID EVGENY Stop: 12/10/23 08:59 Last Admin: 11/12/23 08:49 Dose: 25 mg Miscellaneous (Carbohydrates For Hypoglycemia ) 15 - 30 gm PO UD PRN PRN Reason: Hypoglycemia Protocol Stop: 12/10/23 03:05 Multivitamins/Minerals (Cerovite Adv Formula Tab) 1 tab PO DAILY EVGENY Stop: 12/10/23 08:59 Last Admin: 11/12/23 08:50 Dose: 1 tab Nitroglycerin (Nitroglycerin Sl 0.4 Mg/Tab Tab) 0.4 mg SL Q5M PRN PRN Reason: Chest Pain Stop: 12/10/23 03:05 Potassium Chloride (Potassium Chloride Crtab 20 Meq Tabcr) 40 meq PO NOW STA Stop: 11/12/23 08:53 Trazodone HCl (Trazodone Hcl 100 Mg Tab) 100 mg PO HS EVGENY Stop: 12/10/23 20:59 Last Admin: 11/11/23 19:49 Dose: 100 mg Vancomycin HCl (Vancomycin Hcl 250 Mg/5 Ml Soln) 250 mg PO Q6 EVGENY Stop: 11/20/23 17:59 Last Admin: 11/12/23 05:53 Dose: 250 mg
[2023-11-12] MEDS: POTASSIUM CHLORIDE CRTAB 20 MEQ TABCR PO STA (09:41)
[2023-11-12] MEDS ORDERED: PHARMACY GLYCEMIC MGMT CONSULT PRN (13:44)
--- NOTE | 2023-11-12 14:20 | Pharmacy Report ---
Pharmacy Glycemic Short Note 2 - Date of Service November 12, 2023 - Glycemic Short BSG Results (Last 24 hours): 11/11/23 11/11/23 11/12/23 17:15 20:12 07:34 Glucose 133 H POC Glucose 271 H 204 H 11/12/23 11/12/23 11/12/23 07:58 12:13 12:14 Glucose POC Glucose 122 H 318 H* 320 H* 11/12/23 13:03 Glucose 302 H* POC Glucose OUTPATIENT ANTIDIABETIC REGIMEN: * Tresiba 30 units hs, novolog, metformin 1 gm bid, ozempic ASSESSMENT: * 62 year old admitted with confusion/weakness.Type 2 diabetic managed on insulin at home - pharmacy consulted for glycemic management. Patient known to glycemic from prior admissions, most recently 10/27/23 admission earlier this month. During that time, patient required significantly more insulin than home requirements. (~140 units/day of insulin) * Patient received total of 47 units of insulin yesterday, of which 30 units were basal (home dose) * Fasting BSG 122 mg/dL - of note, patient received total of 60 units of basal day prior on 11/10 likely due to missed dose night prior. Lunch BSGs trending up to 300s today at time of consult. * Plan to tighten novolog with lunch time check - will have scale for basal insulin for hs PLAN FOR INPATIENT GLYCEMIC CONTROL: * Hold outpatient oral diabetes medications * Basal insulin * Lantus 30-40 units hs * Bolus insulin * NovoLog per scale ACHS or Q6hrs while NPO * Goal Range: Low 120 mg/dL - High 150 mg/dL * Correction Factor: 15 mg/dL/unit * Nutritional / Prandial insulin per carb ratio of 1 unit per 5 grams CHO consumed
[2023-11-12 19:14] LABS: Appearance Urine Clear (Clear); Bacteria Urine Automated Negative (Negative); Bilirubin Urine Negative (Negative); Blood Urine Negative (Negative); Color Urine Yellow; Epithelial Cell Urine Auto >30 /lpf (0-5); Glucose Urine UA Negative (Negative); Ketones Urine Negative (Negative); Leukocyte Esterase Urine 1+ (Negative); Nitrite Urine Negative (Negative); Protein Urine Negative (Negative); Specific Gravity Urine 1.009 (1.000-1.030); Urobilinogen Urine Negative (Negative); pH Urine 6.5 (4.5-7.5)
[2023-11-12] MEDS: LANTUS PER UNIT CHARGE SQ SCH (20:41)
[2023-11-13] MEDS: INSULIN ASPART PER UNIT CHARGE SC SCH (00:14)
[2023-11-13 08:08] LABS: Hematocrit (blood only) 31.1 % (37.0-47.0); Hemoglobin 10.2 g/dl (12.0-16.0); Mean Corpuscular Hemoglobin 25.6 pg (25.0-34.0); Mean Corpuscular Hgb Conc 32.8 g/dL (32.0-36.0); Mean Corpuscular Volume 78.1 fL (80.0-100.0); Mean Platelet Volume 10.7 fL (9.4-12.4); Platelet Count 137 K/uL (130-400); RDW Coefficient of Variation 15.9 % (11.5-14.5); RDW Standard Deviation 45.5 fL (36.4-46.3); Red Blood Count 3.98 M/uL (4.20-5.40); White Blood Count 7.16 K/ul (4.8-10.8)
[2023-11-13 08:35] LABS: BUN Creatinine Ratio 13.3 (10-20); Calcium 8.9 mg/dl (8.6-10.3); Creatinine Clr Calc Pharmacy 47.9 ml/min; Est GFR (Non-African American) 56.1 ml/min; Magnesium 1.5 mg/dl (1.7-2.4); Potassium 3.9 mmol/L (3.5-5.1)
--- NOTE | 2023-11-13 08:59 | Pharmacy Report ---
Pharmacy Glycemic Short Note 2 - Date of Service November 13, 2023 - Glycemic Short BSG Results (Last 24 hours): 11/12/23 11/12/23 11/12/23 12:13 12:14 13:03 Glucose 302 H* POC Glucose 318 H* 320 H* 11/12/23 11/12/23 11/12/23 17:04 20:19 23:58 Glucose POC Glucose 189 H 184 H 188 H 11/13/23 11/13/23 07:07 07:54 Glucose 180 H POC Glucose 212 H OUTPATIENT ANTIDIABETIC REGIMEN: * Tresiba 30 units SC HS * Novolog scale SC TIDM * Metformin 1 gm PO BIDM * Ozempic 2 mg SC weekly (Mondays) HbA1c: 8.8% (11/10/23) ASSESSMENT: 11/13/23: * BSGs elevated yesterday, likely related to insufficient basal and Novolog parameters * Received 68 units of insulin (30 units of which were basal) * Recent admission data would suggest insulin needs are ~ double this (will make necessary adjustments today) 11/12/23: * 62 year old admitted with confusion/weakness.Type 2 diabetic managed on insulin at home - pharmacy consulted for glycemic management. Patient known to glycemic from prior admissions, most recently 10/27/23 admission earlier this month. During that time, patient required significantly more insulin than home requirements. (~140 units/day of insulin) * Patient received total of 47 units of insulin yesterday, of which 30 units were basal (home dose) * Fasting BSG 122 mg/dL - of note, patient received total of 60 units of basal day prior on 11/10 likely due to missed dose night prior. Lunch BSGs trending up to 300s today at time of consult. * Plan to tighten novolog with lunch time check - will have scale for basal insulin for hs PLAN FOR INPATIENT GLYCEMIC CONTROL: * Hold outpatient oral diabetes medications * Basal insulin - increase * Lantus 40-50-60 units SC x 1 this evening w/ dinner (see EHR for details) * Bolus insulin - tighten * NovoLog per scale ACHS or Q6hrs while NPO * Goal Range: Low 110 mg/dL - High 140 mg/dL * Correction Factor: 10 mg/dL/unit * Nutritional / Prandial insulin per carb ratio of 1 unit per 2 grams CHO consumed
[2023-11-13] MEDS ORDERED: LANTUS PER UNIT CHARGE SQ SCH ×2 (09:00)
--- NOTE | 2023-11-13 11:08 | Hospitalist Progress Note ---
Date of Service November 13, 2023 Assessment & Plan (1) Weakness: Plan: 62 yo F with past medical history significant for type 2 diabetes, hypothyroidism, hyperlipidemia, aortic stenosis s/p TAVR in 2017, CAD s/p drug- eluting stent to LAD, heart failure with preserved ejection fraction, cirrhosis secondary to [place], hypertension, questionable paroxysmal atrial fibrillation, obstructive sleep apnea intolerant to CPAP, CKD stage III, benign paroxysmal positional vertigo due to bilateral vestibular disorder, history of schizoaffective disorder, history of breast and colon cancer, history of GI bleed, history of C. difficile infection, history of COVID, history of splenic infarcts, recent ZIO showing no definitive atrial fibrillation and was recently in the hospital for vertigo and hyponatremia and hyperglycemia and hypokalemia and did okay and discharged to home comes because of weakness and also family felt she was somewhat confused. Patient is currently alert and oriented x 3. States she felt dizzy. Feeling weak. Daughter advised her to go to the hospital. Has headaches. Vision is blurry. No runny nose or sore throat. No cough. No fevers. No chest pain or shortness of breath. Currently no nausea. No abdominal pain. Having normal bowel and bladder movements as per patient. Ambulates with walker. Eating okay. Lives alone. Son's lives close by. Hemodynamics are okay. Weakness Possible confusion + C. difficile UA negative Cont. p.o. vancomycin Gentle fluids normal saline 50 mill per hour for 1 L Lactic acid 2.6 but repeat is 1.9 Closely monitor PT OT when stable Diabetes Continue home long-acting insulin Sliding scale Will monitor CAD s/p stent On aspirin, statin, Plavix and beta-nayeli History of benign paroxysmal positional vertigo due to bilateral vestibular disorder On meclizine Hypothyroidism On Synthyroid History of heart failure with preserved ejection fraction Aortic stenosis s/p TAVR Monitor for volume overload History of colon cancer History of breast cancer S/p bilateral mastectomy, radiation History of schizoaffective disorder bipolar type On trazodone Seems recently medication discontinued because of polypharmacy DANYELLE CPAP nightly CKD stage III Creatinine 1.0 Will monitor Hypokalemia and hypomagnesia Replete and monitor Cirrhosis secondary to Sprague Getting gentle fluids Not on diuretics ammonia level 25 wnl Monitor for volume overload Possible A-fib Zio patch no definitive A-fib Continue metoprolol DVT prophylaxis Heparin subcu Disposition Telemetry Full code Admission and Anticipated Discharge Date Admission Date: November 10, 2023 Subjective Pt seen in follow up of c. diff colitis Laying in bed in NAD Still has watery diarrhea but feels little improved/ little stronger No fever, chills, chest pain , or shortness of breath. nausea / vomiting now resolved. Review of Systems Review of Systems: All systems reviewed & are unremarkable except as noted in Subjective Physical Exam Physical Exam: General- WD/WN in NAD Head- atraumatic Eyes- PERRL. ENT- oropharynx clear Neck- supple, no JVD. Lungs- clear to auscultation no wheezing or crackles. Heart- regular rhythm; no murmur, no gallop. Abdomen- normal bowel sounds, soft, nontender, no distension. Extremities- no pretibial edema, no erythema seen. Neuro- alert, oriented PERRL,no facial palsy; no dysarthria; moves extremities. Skin- warm & dry Results & Data Results & Data Vital Signs (Past 12 Hours) Vital Signs Temp Pulse Pulse Resp BP Pulse Ox O2 Del Method 11/13/23 07:57 36.9 C 78 18 114/63 93 Room Air 11/13/23 07:30 83 11/13/23 03:14 36.9 C 82 18 163/92 H 95 Room Air 11/12/23 23:50 80 11/12/23 23:47 37.0 C 84 18 112/71 92 Room Air Laboratory Results 11/13/23 11/13/23 11/12/23 Range/Units 07:54 07:07 23:58 WBC 7.16 (4.8-10.8) K/ul RBC 3.98 L (4.20-5.40) M/uL Hgb 10.2 L (12.0-16.0) g/dl Hct 31.1 L (37.0-47.0) % MCV 78.1 L (80.0-100.0) fL MCH 25.6 (25.0-34.0) pg MCHC 32.8 (32.0-36.0) g/dL RDW Std Deviation 45.5 (36.4-46.3) fL RDW Coeff of Valerio 15.9 H (11.5-14.5) % Plt Count 137 (130-400) K/uL MPV 10.7 (9.4-12.4) fL Sodium 134 L (136-145) mmol/L Potassium 3.9 (3.5-5.1) mmol/L Chloride 101 (98-107) mmol/L Carbon Dioxide 27 (21-32) mmol/L Anion Gap 6 (3-11) BUN 14 (6-23) mg/dl Creatinine 1.05 (0.6-1.2) mg/dl Est Cr Clr Drug Dosing 47.9 ml/min Est GFR ( Amer) 65.0 ml/min Est GFR (Non-Af Amer) 56.1 ml/min BUN/Creatinine Ratio 13.3 (10-20) Glucose 180 H (70-99(Fasting)) mg/dl POC Glucose 212 H 188 H (70-99) mg/dl Calcium 8.9 (8.6-10.3) mg/dl Phosphorus 4.0 (2.5-4.9) mg/dl Magnesium 1.5 L (1.7-2.4) mg/dl Urine Color Urine Appearance (Clear) Urine pH (4.5-7.5) Ur Specific [place] (1.000-1.030) Urine Protein (Negative) Urine Glucose (UA) (Negative) Urine Ketones (Negative) Urine Blood (Negative) Urine Nitrite (Negative) Urine Bilirubin (Negative) Urine Urobilinogen (Negative) Ur Leukocyte Esterase (Negative) Urine WBC (Auto) (0-5) /hpf Urine RBC (Auto) (0-4) /hpf U Hyaline Cast (Auto) (0-5) /lpf U Epithel Cells (Auto) (0-5) /lpf Urine Bacteria (Auto) (Negative) 11/12/23 11/12/23 11/12/23 Range/Units 20:19 18:45 17:04 WBC (4.8-10.8) K/ul RBC (4.20-5.40) M/uL Hgb (12.0-16.0) g/dl Hct (37.0-47.0) % MCV (80.0-100.0) fL MCH (25.0-34.0) pg MCHC (32.0-36.0) g/dL RDW Std Deviation (36.4-46.3) fL RDW Coeff of Valerio (11.5-14.5) % Plt Count (130-400) K/uL MPV (9.4-12.4) fL Sodium (136-145) mmol/L Potassium (3.5-5.1) mmol/L Chloride (98-107) mmol/L Carbon Dioxide (21-32) mmol/L Anion Gap (3-11) BUN (6-23) mg/dl Creatinine (0.6-1.2) mg/dl Est Cr Clr Drug Dosing ml/min Est GFR ( Amer) ml/min Est GFR (Non-Af Amer) ml/min BUN/Creatinine Ratio (10-20) Glucose (70-99(Fasting)) mg/dl POC Glucose 184 H 189 H (70-99) mg/dl Calcium (8.6-10.3) mg/dl Phosphorus (2.5-4.9) mg/dl Magnesium (1.7-2.4) mg/dl Urine Color Yellow Urine Appearance Clear (Clear) Urine pH 6.5 (4.5-7.5) Ur Specific [place] 1.009 (1.000-1.030) Urine Protein Negative (Negative) Urine Glucose (UA) Negative (Negative) Urine Ketones Negative (Negative) Urine Blood Negative (Negative) Urine Nitrite Negative (Negative) Urine Bilirubin Negative (Negative) Urine Urobilinogen Negative (Negative) Ur Leukocyte Esterase 1+ H (Negative) Urine WBC (Auto) 5-10 H (0-5) /hpf Urine RBC (Auto) 10-30 H (0-4) /hpf U Hyaline Cast (Auto) 1-5 (0-5) /lpf U Epithel Cells (Auto) >30 H (0-5) /lpf Urine Bacteria (Auto) Negative (Negative) 11/12/23 11/12/23 11/12/23 Range/Units 13:03 12:14 12:13 WBC (4.8-10.8) K/ul RBC (4.20-5.40) M/uL Hgb (12.0-16.0) g/dl Hct (37.0-47.0) % MCV (80.0-100.0) fL MCH (25.0-34.0) pg MCHC (32.0-36.0) g/dL RDW Std Deviation (36.4-46.3) fL RDW Coeff of Valerio (11.5-14.5) % Plt Count (130-400) K/uL MPV (9.4-12.4) fL Sodium (136-145) mmol/L Potassium (3.5-5.1) mmol/L Chloride (98-107) mmol/L Carbon Dioxide (21-32) mmol/L Anion Gap (3-11) BUN (6-23) mg/dl Creatinine (0.6-1.2) mg/dl Est Cr Clr Drug Dosing ml/min Est GFR ( Amer) ml/min Est GFR (Non-Af Amer) ml/min BUN/Creatinine Ratio (10-20) Glucose 302 H* (70-99(Fasting)) mg/dl POC Glucose 320 H* 318 H* (70-99) mg/dl Calcium (8.6-10.3) mg/dl Phosphorus (2.5-4.9) mg/dl Magnesium (1.7-2.4) mg/dl Urine Color Urine Appearance (Clear) Urine pH (4.5-7.5) Ur Specific [place] (1.000-1.030) Urine Protein (Negative) Urine Glucose (UA) (Negative) Urine Ketones (Negative) Urine Blood (Negative) Urine Nitrite (Negative) Urine Bilirubin (Negative) Urine Urobilinogen (Negative) Ur Leukocyte Esterase (Negative) Urine WBC (Auto) (0-5) /hpf Urine RBC (Auto) (0-4) /hpf U Hyaline Cast (Auto) (0-5) /lpf U Epithel Cells (Auto) (0-5) /lpf Urine Bacteria (Auto) (Negative) Medications Administered Current Inpatient Medications Aspirin (Aspirin 81 Mg Ectab) 81 mg PO DAILY EVGENY Stop: 12/10/23 08:59 Last Admin: 11/13/23 08:27 Dose: 81 mg Atorvastatin Calcium (Atorvastatin 40 Mg Tab) 40 mg PO DAILY EVGENY Stop: 12/10/23 08:59 Last Admin: 11/13/23 08:28 Dose: 40 mg Gallardo Syrup (Gallardo Syrup 5 Ml Udp) 5 ml PO Q6 EVGENY Stop: 11/20/23 05:59 Last Admin: 11/13/23 06:15 Dose: 5 ml Clopidogrel Bisulfate (Clopidogrel Bisulfate 75 Mg Tab) 75 mg PO DAILY EVGENY Stop: 12/10/23 08:59 Last Admin: 11/13/23 08:27 Dose: 75 mg Dextrose (Dextrose 50% 50 Ml Syringe) 25 - 50 ml IV UD PRN; Protocol PRN Reason: Hypoglycemia Protocol Stop: 12/10/23 03:05 Fluticasone Propionate (Fluticasone Propionate Na Spr 16 Gm Btl) 2 sprays NA DAILY EVGENY Stop: 12/10/23 08:59 Last Admin: 11/13/23 08:28 Dose: 2 sprays Gabapentin (Gabapentin 100 Mg Cap) 100 mg PO TID EVGENY Stop: 12/10/23 08:59 Last Admin: 11/13/23 08:27 Dose: 100 mg Glucagon (Glucagon For Inj 1 Mg Vial) 1 mg SQ UD PRN; Protocol PRN Reason: Hypoglycemia Protocol Stop: 12/10/23 03:05 Glucose (Glucose 10 Tab/Tube) 4 - 8 tab PO UD PRN; Protocol PRN Reason: Hypoglycemia Treatment Stop: 12/10/23 03:05 Glucose (Glucose 40% Gel 15 Gm Tube) 15 - 30 gm PO UD PRN; Protocol PRN Reason: Hypoglycemia Protocol Stop: 12/10/23 03:05 Heparin Sodium (Porcine) (Heparin Sod 5,000 Unit/0.5 Ml Vial) 5,000 units SQ Q12 EVGENY Stop: 12/10/23 08:59 Last Admin: 11/13/23 09:32 Dose: 5,000 units Magnesium Sulfate/Dextrose (Magnesium Sulfate / D5w) 1 gm in 100 mls @ 50 mls/hr IV ONE ONE Stop: 11/13/23 13:03 Insulin Aspart (Insulin Aspart Per Unit Charge) 0 units SC ACHS EVGENY Stop: 12/10/23 07:29 Last Admin: 11/13/23 09:31 Dose: 42 units Lactic Acid (Ammonium Lactate 12% Lotion 225 Gm Btl) 1 gm EXT DAILY EVGENY Stop: 12/10/23 08:59 Last Admin: 11/13/23 08:27 Dose: 1 gm Lactobacillus Acidophilus (Advanced Probiotic 1250 Mg Capsule) 2 cap PO DAILY EVGENY Stop: 12/10/23 12:59 Last Admin: 11/13/23 08:27 Dose: 2 cap Levothyroxine Sodium (Levothyroxine Sodium 75 Mcg Tablet) 75 mcg PO DAILYBB EVGENY Stop: 12/10/23 06:29 Last Admin: 11/13/23 06:15 Dose: 75 mcg Magnesium Oxide (Magnesium Oxide 400 Mg Tab) 400 mg PO DAILY EVGENY Stop: 12/10/23 08:59 Last Admin: 11/12/23 08:49 Dose: 400 mg Meclizine HCl (Meclizine Hcl 25 Mg Tab) 50 mg PO BID EVGENY Stop: 12/10/23 08:59 Last Admin: 11/13/23 08:28 Dose: 50 mg Melatonin (Melatonin 3 Mg Tab) 9 mg PO HS EVGENY Stop: 12/10/23 20:59 Last Admin: 11/12/23 20:42 Dose: 9 mg Metoprolol Tartrate (Metoprolol Tartrate 25 Mg Tab) 25 mg PO BID EVGENY Stop: 12/10/23 08:59 Last Admin: 11/13/23 08:27 Dose: 25 mg Miscellaneous (Carbohydrates For Hypoglycemia ) 15 - 30 gm PO UD PRN PRN Reason: Hypoglycemia Protocol Stop: 12/10/23 03:05 Miscellaneous Information (Pharmacy Glycemic Mgmt Consult) 1 each N/A UD PRN; Protocol PRN Reason: Consult Stop: 12/12/23 13:43 Multivitamins/Minerals (Cerovite Adv Formula Tab) 1 tab PO DAILY EVGENY Stop: 12/10/23 08:59 Last Admin: 11/13/23 08:28 Dose: 1 tab Nitroglycerin (Nitroglycerin Sl 0.4 Mg/Tab Tab) 0.4 mg SL Q5M PRN PRN Reason: Chest Pain Stop: 12/10/23 03:05 Trazodone HCl (Trazodone Hcl 100 Mg Tab) 100 mg PO HS [facility] Stop: 12/10/23 20:59 Last Admin: 11/12/23 20:31 Dose: 100 mg Vancomycin HCl (Vancomycin Hcl 250 Mg/5 Ml Soln) 250 mg PO Q6 EVGENY Stop: 11/20/23 17:59 Last Admin: 11/13/23 06:15 Dose: 250 mg
[2023-11-13] MEDS: MAGNESIUM SULFATE / D5W 1 GM/100 ML BAG IV ONE (11:57)
[2023-11-13] MEDS: LANTUS PER UNIT CHARGE SC SCH (18:03)
[2023-11-14 06:15] LABS: Hematocrit (blood only) 32.6 % (37.0-47.0); Hemoglobin 10.3 g/dl (12.0-16.0); Mean Corpuscular Hgb Conc 31.6 g/dL (32.0-36.0); Mean Corpuscular Volume 79.1 fL (80.0-100.0); Mean Platelet Volume 10.6 fL (9.4-12.4); Nucleated RBC # (auto) 0.02 K/uL (0.00-0.12); Nucleated RBC % (auto) 0.3 %; Platelet Count 146 K/uL (130-400); RDW Coefficient of Variation 15.9 % (11.5-14.5); RDW Standard Deviation 45.2 fL (36.4-46.3); Red Blood Count 4.12 M/uL (4.20-5.40); White Blood Count 7.02 K/ul (4.8-10.8)
[2023-11-14 06:23] LABS: BUN Creatinine Ratio 12.1 (10-20); Calcium 9.3 mg/dl (8.6-10.3); Creatinine Clr Calc Pharmacy 47.3 ml/min; Est GFR (African American) 63.5 ml/min; Est GFR (Non-African American) 54.8 ml/min; Magnesium 1.7 mg/dl (1.7-2.4); Phosphorus 4.5 mg/dl (2.5-4.9); Potassium 4.3 mmol/L (3.5-5.1)
--- NOTE | 2023-11-14 15:23 | Hospitalist Progress Note ---
Date of Service November 14, 2023 Assessment & Plan (1) Weakness: Plan: 62-year-old female with PMH of T2DM, hypothyroidism, HLD, aortic stenosis status post TAVR in 2017, CAD status post HOMER to LAD, heart failure with preserved ejection fraction, cirrhosis secondary to LEYVA, HTN, questionable paroxysmal A- fib, DANYELLE intolerant to CPAP, CKD stage III, benign paroxysmal positional vertigo due to bilateral vestibular disorder, schizoaffective disorder, breast and colon cancer, GI bleed, C. difficile infection, COVID, splenic infarcts, recent Zio patch showing no definitive atrial fibrillation presented to the ED with complaint of weakness/possible confusion. But patient was oriented x 3 at presentation. She ambulates with walker. Lives alone. She is being managed for the following: Weakness Possible confusion C. difficile diarrhea Increase blood lactic acid level Patient came in with confusion, weakness. 10/30 tested positive for C. difficile Status post IV fluid, started on vancomycin p.o. 11/10. Lactic acid down trended. Patient with loose stool still but reports improvement overall. Reports improving appetite. Continue to follow clinically, improving appetite, monitor off of IV fluids. Other chronic medical conditions: Continue with/resume home meds as and when able. Diabetes: Sliding scale insulin while in hospital. Home p.o. meds on hold. CAD status post stent: Continue with home aspirin, statin, Plavix, beta- nayeli History of BPPV due to bilateral vestibular disorder: Continue home meclizine Hypothyroidism: Continue home Synthroid Heart failure with preserved ejection fraction/aortic stenosis status post TAVR: Monitor for volume overload Colon cancer and breast cancer: Status post bilateral mastectomy, radiation. Schizoaffective disorder bipolar type: On trazodone. Seems recently medication discontinued because of polypharmacy. DANYELLE: CPAP nightly CKD stage III: Stable. Cirrhosis secondary to LEYVA: Ammonia level WNL. Monitor for volume overload. Possible A-fib: Recent Zio monitoring not definitive of A-fib. Continue metoprolol. DVT prophylaxis: Heparin subcu Disposition: PT/OT, CM to assist with DC planning. PT recs rehab. Full code Admission and Anticipated Discharge Date Admission Date: November 10, 2023 Subjective Patient was seen and examined at bedside. Patient was lying in bed, on room air, NAD, resting comfortably. Patient still reports liquidy stool about 4 to 6/day. Denies nausea and vomiting. Patient reports feeling improved and little stronger. Denies fever/chills/chest pain/shortness of breath. Reports eating okay. Physical Exam Physical Exam: General- WD/WN in NAD. Appears ill frail and weak. Head- atraumatic Eyes- PERRL. ENT- oropharynx clear Neck- supple, no JVD. Lungs- clear to auscultation no wheezing or crackles. Heart- regular rhythm; no murmur, no gallop. Abdomen- normal bowel sounds, soft, nontender, no distension. Extremities- no pretibial edema, no erythema seen. Neuro- alert, oriented PERRL,no facial palsy; no dysarthria; moves extremities. Skin- warm & dry Results & Data Results & Data Vital Signs (Past 12 Hours) Vital Signs Temp Pulse Pulse Resp BP BP Pulse Ox 11/14/23 15:05 36.7 C 75 18 114/67 95 11/14/23 11:42 36.8 C 81 18 117/70 93 11/14/23 08:00 36.7 C 68 18 129/76 95 11/14/23 07:33 73 11/14/23 03:17 36.8 C 77 18 120/70 94 O2 Del Method 11/14/23 15:05 Room Air 11/14/23 11:42 Room Air 11/14/23 08:00 Room Air 11/14/23 07:33 11/14/23 03:17 Room Air
[2023-11-14] MEDS: ACETAMINOPHEN 500 MG TAB PO PRN (15:34)
[2023-11-14] MEDS: LANTUS PER UNIT CHARGE SC SCH (20:40)
[2023-11-15 05:22] LABS: Hematocrit (blood only) 33.3 % (37.0-47.0); Hemoglobin 10.8 g/dl (12.0-16.0); Mean Corpuscular Hemoglobin 25.6 pg (25.0-34.0); Mean Corpuscular Hgb Conc 32.4 g/dL (32.0-36.0); Mean Corpuscular Volume 78.9 fL (80.0-100.0); Mean Platelet Volume 10.7 fL (9.4-12.4); Nucleated RBC # (auto) 0.03 K/uL (0.00-0.12); Nucleated RBC % (auto) 0.4 %; Platelet Count 164 K/uL (130-400); RDW Coefficient of Variation 15.8 % (11.5-14.5); RDW Standard Deviation 44.8 fL (36.4-46.3); Red Blood Count 4.22 M/uL (4.20-5.40); White Blood Count 8.35 K/ul (4.8-10.8)
[2023-11-15 05:24] LABS: BUN Creatinine Ratio 11.4 (10-20); Calcium 9.5 mg/dl (8.6-10.3); Creatinine Clr Calc Pharmacy 44.4 ml/min; Est GFR (African American) 58.9 ml/min; Est GFR (Non-African American) 50.8 ml/min; Magnesium 1.6 mg/dl (1.7-2.4); Phosphorus 5.3 mg/dl (2.5-4.9); Potassium 4.2 mmol/L (3.5-5.1)
[2023-11-15] MEDS: MAGNESIUM SULFATE / D5W 1 GM/100 ML BAG IV SCH (09:39)
--- NOTE | 2023-11-15 10:06 | Pharmacy Report ---
Pharmacy Glycemic Short Note 2 - Date of Service November 15, 2023 - Glycemic Short BSG Results (Last 24 hours): 11/14/23 11/14/23 11/14/23 11:52 17:22 19:50 Glucose POC Glucose 172 H 162 H 171 H 11/15/23 11/15/23 11/15/23 04:42 08:33 08:35 Glucose 202 H POC Glucose 217 H 218 H OUTPATIENT ANTIDIABETIC REGIMEN: * Tresiba 30 units SC HS * Novolog scale SC TIDM * Metformin 1 gm PO BIDM * Ozempic 2 mg SC weekly (Mondays) HbA1c: 8.8% (11/10/23) ASSESSMENT: 11/15/23: * Jovita received 167 units of insulin (60 were basal) * Fasting BSG consistently elevated, will allow for an increase of 25% of yesterday's basal regimen based on dinnertime BSG, slightly decrease if below goal range. Plan to move basal insulin to AM per diabetes education recommendations (dinnertime today, lunch tomorrow, AM 11/17) * Novolog parameters appear to be adequately covering and correcting, continue. 11/13/23 * BSGs elevated yesterday, likely related to insufficient basal and Novolog parameters * Received 68 units of insulin (30 units of which were basal) * Recent admission data would suggest insulin needs are ~ double this (will make necessary adjustments today) 11/12/23: * 62 year old admitted with confusion/weakness.Type 2 diabetic managed on insulin at home - pharmacy consulted for glycemic management. Patient known to glycemic from prior admissions, most recently 10/27/23 admission earlier this month. During that time, patient required significantly more insulin than home requirements. (~140 units/day of insulin) * Patient received total of 47 units of insulin yesterday, of which 30 units we re basal (home dose) * Fasting BSG 122 mg/dL - of note, patient received total of 60 units of basal day prior on 11/10 likely due to missed dose night prior. Lunch BSGs trending up to 300s today at time of consult. * Plan to tighten novolog with lunch time check - will have scale for basal insulin for hs PLAN FOR INPATIENT GLYCEMIC CONTROL: * Hold outpatient oral diabetes medications * Basal insulin - increase * Lantus 55-65-75 units SC x 1 this evening w/ dinner (see EHR for details) * Bolus insulin - tighten * NovoLog per scale ACHS or Q6hrs while NPO * Goal Range: Low 110 mg/dL - High 140 mg/dL * Correction Factor: 10 mg/dL/unit * Nutritional / Prandial insulin per carb ratio of 1 unit per 2 grams CHO consumed
--- NOTE | 2023-11-15 13:14 | Hospitalist Progress Note ---
Date of Service November 15, 2023 Assessment & Plan (1) Weakness: Plan: 62-year-old female with PMH of T2DM, hypothyroidism, HLD, aortic stenosis status post TAVR in 2017, CAD status post HOMER to LAD, heart failure with preserved ejection fraction, cirrhosis secondary to LEYVA, HTN, questionable paroxysmal A- fib, DANYELLE intolerant to CPAP, CKD stage III, benign paroxysmal positional vertigo due to bilateral vestibular disorder, schizoaffective disorder, breast and colon cancer, GI bleed, C. difficile infection, COVID, splenic infarcts, recent Zio patch showing no definitive atrial fibrillation presented to the ED with complaint of weakness/possible confusion. But patient was oriented x 3 at presentation. She ambulates with walker. Lives alone. She is being managed for the following: Weakness Possible confusion C. difficile diarrhea Increase blood lactic acid level Patient came in with confusion, weakness. 10/30 tested positive for C. difficile Status post IV fluid, started on vancomycin p.o. 11/10. Lactic acid down trended. Patient with improving consistency of the stool/still liquidy nature per pt but better than before, frequency about the same. Reports improving appetite. Continue to follow clinically, improving appetite. Other chronic medical conditions: Continue with/resume home meds as and when able. Diabetes: Sliding scale insulin while in hospital. Home p.o. meds on hold. CAD status post stent: Continue with home aspirin, statin, Plavix, beta- nayeli History of BPPV due to bilateral vestibular disorder: Continue home meclizine Hypothyroidism: Continue home Synthroid Heart failure with preserved ejection fraction/aortic stenosis status post TAVR: Monitor for volume overload Colon cancer and breast cancer: Status post bilateral mastectomy, radiation. Schizoaffective disorder bipolar type: On trazodone. Seems recently medication discontinued because of polypharmacy. DANYELLE: CPAP nightly CKD stage III: Stable. Cirrhosis secondary to LEYVA: Ammonia level WNL. Monitor for volume overload. Possible A-fib: Recent Zio monitoring not definitive of A-fib. Continue metoprolol. DVT prophylaxis: Heparin subcu Disposition: PT/OT, CM to assist with DC planning. PT recs rehab. Likely in next 1 to 2 days. Full code Admission and Anticipated Discharge Date Admission Date: November 10, 2023 Subjective Patient was seen and examined at bedside. Patient was lying in bed, on room air, NAD, resting comfortably. Patient improving consistency of the stool with frequency about being the same, 4 to 6/day. Denies nausea and vomiting. Patient reports feeling improved and little stronger. Denies fever/chills/chest pain/shortness of breath. Reports eating okay. Physical Exam Physical Exam: General- WD/WN in NAD. Appears ill frail and weak. Head- atraumatic Eyes- PERRL. ENT- oropharynx clear Neck- supple, no JVD. Lungs- clear to auscultation no wheezing or crackles. Heart- regular rhythm; no murmur, no gallop. Abdomen- normal bowel sounds, soft, nontender, no distension. Extremities- no pretibial edema, no erythema seen. Neuro- alert, oriented PERRL,no facial palsy; no dysarthria; moves extremities. Skin- warm & dry Results & Data Results & Data Vital Signs (Past 12 Hours) Vital Signs Temp Pulse Pulse Resp BP Pulse Ox O2 Del Method 11/15/23 11:38 36.9 C 89 12 98/60 L 94 Room Air 11/15/23 07:55 36.4 C L 70 122/66 94 Room Air 11/15/23 07:49 67 11/15/23 03:17 36.6 C 74 18 146/79 H 96 Room Air
[2023-11-15] MEDS: LANTUS PER UNIT CHARGE SC SCH (18:15)
[2023-11-16 06:23] LABS: BUN Creatinine Ratio 14.4 (10-20); Calcium 9.4 mg/dl (8.6-10.3); Creatinine Clr Calc Pharmacy 47.6 ml/min; Est GFR (African American) 65.8 ml/min; Est GFR (Non-African American) 56.7 ml/min; Magnesium 1.9 mg/dl (1.7-2.4); Potassium 4.6 mmol/L (3.5-5.1)
[2023-11-16] MEDS: INSULIN ASPART PER UNIT CHARGE SC SCH ×2 (09:33→12:53)
--- NOTE | 2023-11-16 11:10 | Discharge Summary ---
Date of Service November 16, 2023 Admission HPI Per Admitting Provider 62-year-old female with past medical history significant for type 2 diabetes, hypothyroidism, hyperlipidemia, aortic stenosis s/p TAVR in 2017, CAD s/p drug- eluting stent to LAD, heart failure with preserved ejection fraction, cirrhosis secondary to [place], hypertension, questionable paroxysmal atrial fibrillation, obstructive sleep apnea intolerant to CPAP, CKD stage III, benign paroxysmal positional vertigo due to bilateral vestibular disorder, history of schizoaffective disorder, history of breast and colon cancer, history of GI bleed, history of C. difficile infection, history of COVID, history of splenic i nfarcts, recent ZIO showing no definitive atrial fibrillation and was recently in the hospital for vertigo and hyponatremia and hyperglycemia and hypokalemia and did okay and discharged to home comes because of weakness and also family felt she was somewhat confused. Patient is currently alert and oriented x 3. States she felt dizzy. Feeling weak. Daughter advised her to go to the hospital. Has headaches. Vision is blurry. No runny nose or sore throat. No cough. No fevers. No chest pain or shortness of breath. Currently no nausea. No abdominal pain. Having normal bowel and bladder movements as per patient. Ambulates with walker. Eating okay. Lives alone. Son's lives close by. Hemodynamics are okay. Past medical history. As mentioned above Past surgical history. Bilateral carpal tunnel surgery. . Colonoscopy. Left and right heart cardiac cath. EGD. Flexible esophagoscopy. Excision of breast lesion. Exploration of abdomen. Hysteroscopy with biopsy. Injection of eye drug. Diagnostic laparoscopy. Complete simple mastectomy. Appendectomy. Partial colectomy. Removal of breast implant. Removal of oviducts. Complete axillary lymphadenectomy. Repair of incisional hernia. Replace aortic valve percutaneous. Right revision of ulnar nerve at elbow. Sigmoidoscopy. Total abdominal hysterectomy with removal of tubes. Social history. Lives alone. No smoking. No alcohol use. No drug use. Family history. Father had LA. Brother had CABG. Sinus coarctation of aorta. Brother had LA at age 31 and HIV positive. Sister had stroke. Admission Exam Per Admitting Provider General- Not in distress Head- atraumatic Eyes- PERRL. ENT- oropharynx clear Neck- supple, no JVD. Lungs- clear to auscultation no wheezing or crackles. Heart- regular rhythm; no murmur, no gallop. Abdomen- normal bowel sounds, soft, nontender, no distension. Extremities- no pretibial edema, no erythema seen. Neuro- alert, oriented PERRL,no facial palsy; no dysarthria; moves extremities. Skin- warm & dry Principal Diagnosis C. difficile diarrhea Generalized weakness Discharge Exam General- WD/WN in NAD. Head- atraumatic Eyes- PERRL. ENT- oropharynx clear Neck- supple, no JVD. Lungs- clear to auscultation no wheezing or crackles. Heart- regular rhythm; no murmur, no gallop. Abdomen- normal bowel sounds, soft, nontender, no distension. Extremities- no pretibial edema, no erythema seen. Neuro- alert, oriented PERRL,no facial palsy; no dysarthria; moves extremities. Skin- warm & dry Discharge Data Allergies Allergy/AdvReac Type Severity Reaction Status Date / Time glycerin Allergy Intermediate ITCHING, Verified 11/10/23 00:17 BURNING FROM TOPICALS lactose Allergy Intermediate Gastrointestinal Verified 11/10/23 00:17 Upset Penicillins Allergy Intermediate Rash Verified 11/10/23 00:17 adhesive tape AdvReac Intermediate CAN NOT Verified 11/10/23 00:17 TOLERATE BANDAIDS lisinopril AdvReac Intermediate Cough Verified 11/10/23 00:17 monosodium glutamate AdvReac Intermediate EDEMA OF Verified 11/10/23 00:17 HANDS & FEET Consultations 11/09/23 23:34 ED Decision to Admit Stat Ordered Studies 11/09/23 21:40 CT head/brain wo con Stat 11/10/23 03:06 US abdomen ltd ascites Routine Hospital Course (1) Weakness: 62-year-old female with PMH of T2DM, hypothyroidism, HLD, aortic stenosis status post TAVR in 2017, CAD status post HOMER to LAD, heart failure with preserved ejection fraction, cirrhosis secondary to [place], HTN, questionable paroxysmal A- fib, DANYELLE intolerant to CPAP, CKD stage III, benign paroxysmal positional vertigo due to bilateral vestibular disorder, schizoaffective disorder, breast and colon cancer, GI bleed, C. difficile infection, COVID, splenic infarcts, recent Zio patch showing no definitive atrial fibrillation presented to the ED with complaint of weakness/possible confusion. But patient was oriented x 3 at presentation. She ambulates with walker. Lives alone. She was managed for the following: Weakness Possible confusion C. difficile diarrhea Increase blood lactic acid level Patient came in with confusion, weakness. / tested positive for C. difficile Status post IV fluid, started on vancomycin p.o. 11/10. Lactic acid down trended. Patient reports improving frequency of the stool, improving consistency now more towards solid stool per patient. Electrolytes are stable. Patient will be discharged on p.o. vancomycin to complete the course. Probiotics also prescribed at discharge. Patient reports being back to her baseline with ambulation, RN indicates patient moving around independently with walker which patient uses at home. Per briefcase sewer, insurance declined rehab for patient. Patient is hemodynamically stable and is aware and would like to go home today. Other chronic medical conditions: Continue with/resume home meds as and when able. Diabetes: Sliding scale insulin while in hospital. Home p.o. meds on hold. CAD status post stent: Continue with home aspirin, statin, Plavix, beta- nayeli History of BPPV due to bilateral vestibular disorder: Continue home meclizine Hypothyroidism: Continue home Synthroid Heart failure with preserved ejection fraction/aortic stenosis status post TAVR: Monitor for volume overload Colon cancer and breast cancer: Status post bilateral mastectomy, radiation. Schizoaffective disorder bipolar type: On trazodone. Seems recently medication discontinued because of polypharmacy. DANYELLE: CPAP nightly CKD stage III: Stable. Cirrhosis secondary to [place]: Ammonia level WNL. Monitor for volume overload. Possible A-fib: Recent Zio monitoring not definitive of A-fib. Continue metoprolol. DVT prophylaxis: Heparin subcu Full code Patient is being discharged to home with home health with following instruction at the point of discharge: Follow-up with your primary care physician within a week time and likely you will need labs CBC/CMP/magnesium/phosphorus. You were managed for C. difficile infection, continue your vancomycin to complete 10-day therapy. You already have improving consistency and frequency of her stool at the time of discharge, if there is worsening of stool consistency and frequency, contact your PCP office or emergency immediately. Take your medications as prescribed. Please make sure that you are able to get your medications today by calling your pharmacy before you leave the hospital so that your treatment continuity is not broken. Home Health Attestation I certify that this patient is under my care and that I, or a physicians social science research assistant working with me, had a face to-face encounter that meets the home health [id number] encounter requirements with this patient. The encounter with the patient was in whole, or in part, for the following medical condition, which is the primary reason for home health care (list medical condition): C-diff, confusion, resumption of care I certify that, based on my findings, the following services are medically necessary home health services: My clinical findings support the need for the above services because: Home Safety Assessment Hydration / Nutrition PT Assessment for Endurance / Balance / Strength PT Eval for Safety and Mobility PT Eval for Safety, Gait Training, Assistive Devices Safety Skilled Nsg Assessment Further, I certify that my clinical findings support that this patient is homebound (i.e. absences from home require considerable and taxing effort and are for medical reasons or taoist services or infrequently or of short duration when for other reasons) because: Assistance of 1 Person for Ambulation/Activities Supportive Aid - Walker Certification for Home Health Services: Based on the above findings, I certify that this patient is confined to the home and needs intermittent penitentiary care, physical therapy and/or speech therapy or continues to need occupational therapy. The patient is under my care, and I have initiated the establishment of the plan of care. This patient will be followed by a physician who will periodically review the plan of care. Total Time Total Time Spent Total Time Spent (In Minutes): 45 Discharge Plan Discharge Items Patient Disposition: Home - Home Health Services Reason For Visit: CONFUSION? Discharge Diagnosis: C. difficile diarrhea Generalized weakness Condition on Discharge: Good Activity: Resume your previous activity Non-emergency contact: Primary Care Provider Call non-emergency contact if: you have any medication questions, your symptoms worsen and your temperature is above 101.5 Follow-up/Referrals: Gregory Rausch MD [Primary Care Provider] - Diet: Carb Consistent or DM2, Heart Healthy and Low Sodium (2gm) Diet Texture: Easy to Chew Addtl Attending Provider Instructions: Follow-up with your primary care physician within a week time and likely you will need labs CBC/CMP/magnesium/phosphorus. You were managed for C. difficile infection, continue your vancomycin to complete 10-day therapy. You already have improving consistency and frequency of her stool at the time of discharge, if there is worsening of stool consistency and frequency, contact your PCP office or emergency immediately. Take your medications as prescribed. Please make sure that you are able to get your medications today by calling your pharmacy before you leave the hospital so that your treatment continuity is not broken. Pending Studies at Discharge: No Stand-Alone Forms: [facility], Smoking Cessation Medications and DC Order Prescriptions: New vancomycin [Vancocin] 250 mg capsule 250 mg PO Q6H 5 Days Qty: 20 0RF Advanced Probiotic 625 mg (10 billion cell) Capsule 2 cap PO DAILY 14 Days Qty: 28 0RF Continued atorvastatin [Lipitor] 40 mg tablet 40 mg PO DAILY clopidogrel [Plavix] 75 mg tablet 75 mg PO DAILY levothyroxine 75 mcg tablet 75 mcg PO DAILY meclizine 25 mg tablet 50 mg PO BID trazodone 100 mg tablet 100 mg PO HS magnesium oxide 400 mg magnesium tablet 400 mg PO DAILY (DME) FreeStyle Keisha 2 [place] Misc See Rx Instructions .Route Qty: 1 0RF Rx Instructions: As directed ammonium lactate 12 % lotion 1 applic TOPICAL DAILY Rx Instructions: APPLY TO FEET aspirin 81 mg Tablet,Delayed Release (Dr/Ec) 81 mg PO DAILY nystatin 100,000 unit/gram Powder 1 applic TOPICAL DIRECTED PRN (Reason: Skin Irritation) multivitamin with minerals Tablet 1 tab PO DAILY fluticasone propionate 50 mcg/actuation Lexa,Suspension 2 spray INTRANASAL DAILY Rx Instructions: administer into each nostril cranberry extract-vitamin C [Azo Cranberry Plus Vit C] 250-60 mg Capsule 2 cap PO TID melatonin 10 mg Tablet 10 mg PO HS insulin degludec [Tresiba FlexTouch U-200] 200 unit/mL (3 mL) Insulin Pen 30 unit SUBCUT DAILY Ozempic 2 mg/dose (8 mg/3 mL) pen injector 2 mg SUBCUT WK Rx Instructions: MONDAYS metformin 1,000 mg tablet 1,000 mg PO BID gabapentin 100 mg capsule 100 mg PO TID insulin aspart U-100 [Novolog FlexPen U-100 Insulin] 100 unit/mL (3 mL) Insulin Pen 0 unit subcut TIDM Rx Instructions: 2 UNITS PER 50 WHEN BSG IS OVER 200. metoprolol tartrate 25 mg tablet 25 mg PO BID Gaviscon 80-14.2 mg Tablet,Chewable 1 tab PO DIRECTED PRN (Reason: Gi Upset) Discontinued clindamycin HCl 300 mg Capsule 600 mg PO DIRECTED PRN (Reason: PRIOR TO DENTAL APPT) Rx Instructions: TAKE 30-60 MINUTES PRIOR TO DENTAL APPT.. Discharge Orders: Discharge Order (Routine); Ordered 11/16/23 Ordered By: Patti Trujillo Admission Data Admit Date/Time: 11/10/23 01:37 Attending Provider: Patti Trujillo Admit Provider: Tommy London Primary Care Provider: Gregory Rausch Other Providers: Tommy London
--- NOTE | 2023-11-16 11:17 | Pharmacy Report ---
Pharmacy Glycemic Short Note 2 - Date of Service November 16, 2023 - Glycemic Short BSG Results (Last 24 hours): 11/15/23 11/15/23 11/15/23 12:22 12:22 17:14 Glucose POC Glucose 331 H* 303 H* 105 H 11/15/23 11/16/23 11/16/23 20:02 05:35 08:37 Glucose 159 H POC Glucose 162 H 204 H OUTPATIENT ANTIDIABETIC REGIMEN: * Tresiba 30 units SC HS * Novolog scale SC TIDM * Metformin 1 gm PO BIDM * Ozempic 2 mg SC weekly (Mondays) HbA1c: 8.8% (11/10/23) ASSESSMENT: 11/16/23: * Jovita received 164 units of insulin yesterday (55 were basal) * Fasting BSG this AM still above goal range this AM, will schedule 20% increase in basal insulin today with lunch and continue with daily in AM tomorrow * BSGs high in the AM and trend down throughout the day, will tighten Novolog parameters with breakfast in attempt to prevent this trend 11/15/23: * Jovita received 167 units of insulin (60 were basal) * Fasting BSG consistently elevated, will allow for an increase of 25% of yesterday's basal regimen based on dinnertime BSG, slightly decrease if below goal range. Plan to move basal insulin to AM per diabetes education recommendations (dinnertime today, lunch tomorrow, AM 11/17) * Novolog parameters appear to be adequately covering and correcting, continue. 11/13/23 * BSGs elevated yesterday, likely related to insufficient basal and Novolog parameters * Received 68 units of insulin (30 units of which were basal) * Recent admission data would suggest insulin needs are ~ double this (will make necessary adjustments today) 11/12/23: * 62 year old admitted with confusion/weakness.Type 2 diabetic managed on insulin at home - pharmacy consulted for glycemic management. Patient known to glycemic from prior admissions, most recently 10/27/23 admission earlier this month. During that time, patient required significantly more insulin than home requirements. (~140 units/day of insulin) * Patient received total of 47 units of insulin yesterday, of which 30 units were basal (home dose) * Fasting BSG 122 mg/dL - of note, patient received total of 60 units of basal day prior on 11/10 likely due to missed dose night prior. Lunch BSGs trending up to 300s today at time of consult. * Plan to tighten novolog with lunch time check - will have scale for basal insulin for hs PLAN FOR INPATIENT GLYCEMIC CONTROL: * Hold outpatient oral diabetes medications * Basal insulin - increase * Lantus 65 units SC daily (with lunch today, transition to AM dosing) * Bolus insulin - tighten with breakfast * NovoLog per scale QDB * Goal Range: Low 110 mg/dL - High 140 mg/dL * Correction Factor: 8 mg/dL/unit * Nutritional / Prandial insulin per carb ratio of 1 unit per 1.5 grams CHO consumed * Bolus insulin - continue with lunch, dinner and bedtime * NovoLog per scale QDL,QDD,& HS or Q6hrs while NPO * Goal Range: Low 110 mg/dL - High 140 mg/dL * Correction Factor: 10 mg/dL/unit * Nutritional / Prandial insulin per carb ratio of 1 unit per 2 grams CHO consumed
[2023-11-16] MEDS ORDERED: LANTUS PER UNIT CHARGE SC SCH (11:30)
[2023-11-16] MEDS: LANTUS PER UNIT CHARGE SC SCH (12:52)
== END 2023-11-16 15:29 | disposition home health service (06) | DRG 372 ==
LOC: ED 21:09 → SUATTDRO 11-10 01:37 → EDINP 11-10 01:37 → 2W 11-11 03:06

== ENCOUNTER 2024-06-05 10:08 | Inpatient (IN) ==
--- NOTE | 2024-06-05 10:48 | Emergency Department Note ---
Impression & Plan Pancolitis, C. difficile colitis, Failure of outpatient treatment ED Provider Note Name: BRIGIDA ROCA Age: 63 Sex: Female Arrives Via: Ambulance Informant: Patient and patient's daughter (over the phone while discussing with patient) ED Provider: Jose Booker MD Chief Complaint: Diarrhea and abdominal pain as per impression above Impression: As per impressions above Medical Decision Makin-year-old female with extensive past medical history arrives for evaluation of worsening diarrhea. Patient with a history of perforated abdomen and exploratory laparotomy 1 year ago. Since then dealing with C. difficile infection. Hospitalized last October for C. difficile. She has had waxing waning diarrhea over the last few months. She has been treated with difficile as an outpatient. About a month ago was switched to vancomycin for recurrent C. difficile colitis. Over the last 10 days no severe worsening of colitis and abdominal pain. Arrives dehydrated. Noted to be hyperglycemic. With the amount of abdominal discomfort she was given some IV pain medications along with a CT abdomen pelvis being ordered. This does reveal a diffuse colitis. Laboratory workup is reassuring other than elevated blood sugar. Given failure of outpatient therapy and multiple outpatient meds having attempted to get this under control along with patient's uncontrolled diabetes and think hospitalization is probably the most reasonable approach at this time. She was given some IV fluids and after discussing with hospitalist will defer C. difficile management to them at this time. Patient is not septic at this time. Triage/Nursing Notes reviewed by Me External Chart Review by me: I reviewed discharge summary from November 16, 2023 discussing patient's previous hospitalization for C. difficile and her multiple past medical history issues Differential: C. difficile, sepsis, dehydration, electrolyte imbalance, hyperglycemia, perforation, abscess, diverticulitis, many other pathologies considered Vital Signs: reviewed and remarkable for no significant abnormalities Interventions: Normal send bolus 1 L IV, Dilaudid 0.5 mg IV Labs:ED labs Reviewed by me and remarkable for no significant abnormalities Imaging:CT abdomen and pelvis as per my informal interpretation. Diffuse colitis no free air or significant amount of free fluid appreciated. Confirmed by radiologist. Consults:Discussed with hospitalist who will evaluate further for management. Plan: Disposition:Hospitalization. Condition: Good History of Present Illness: 63-year-old female arrives for evaluation of diarrhea. Patient with ongoing diarrhea for the last 10 days. She has been dealing with episodes of C. difficile for the last year. She has been on several rounds of Dificid and vancomycin since then. She notes she was last on Dificid in April and then switched to vancomycin on May 01. She is currently on an 8-week course of vancomycin. States the diarrhea started getting worse 10 days ago. Associated with some nausea and vomiting 2 days ago which is resolved. States she has been eating toast and keeping hydrated with small sips of fluids frequently. Denies any fevers, chills, back pain, chest pain, shortness of breath, leg swelling, rashes or other concerning signs or symptoms. Patient was seen at the local gastroenterology clinic and was advised to come to the ER for evaluation of dehydration and as per daughter spread of the C. difficile Past Medical History:See Below Home Medications:See Below Allergies:See Below Vitals:Blood Pressure: 129/65, Pulse 83, RR 18, T 37.2C, O2 94% on RA Physical Exam: GENERAL: Patient is dehydrated appearing and in minimal distress. RESPIRATORY: No dyspnea. Clear to auscultation and equal bilaterally. CARDIOVASCULAR: Regular rate and rhythm.No murmur appreciated. GASTROINTESTINAL: Abdomen soft, non-tender, no peritonitis. EXTREMITIES: Normal motion all extremities, no cyanosis, no edema. NEUROLOGIC: Alert and oriented. No focal neurologic deficits appreciated SKIN: No rash, no jaundice, no diaphoresis. PSYCH: Appropriate GCS: 15 ED Course: Times/Reassessments: Feeling much better after some IV pain medication to rehydration. Agreeable to hospitalization. Jose Booker MD Past Med/Surg History Problem List (Updated 12/02/23 @ 00:07 by Background Ketty) Asymptomatic bacteriuria Irritable bowel syndrome with diarrhea Failure of outpatient treatment (Acute) C. difficile colitis (Acute) Pancolitis (Acute) Pancolitis C. difficile diarrhea (Acute) Acute diarrhea (Acute) Hypomagnesemia (Acute) Weakness (Acute) Acute renal failure Electrolyte and fluid disorder DM II (diabetes mellitus, type II), controlled Metabolic alkalosis Dizziness (Acute) Acute hypokalemia (Acute) Hypoxia (Acute) Acute hyponatremia (Acute) Perforated abdominal viscus Paroxysmal A-fib Respiratory failure Diastolic congestive heart failure Atrial fibrillation with rapid ventricular response Encephalopathy AMS (altered mental status) (Acute) Acute hyperglycemia (Acute) Elevated lactic acid level (Acute) UTI (urinary tract infection) (Acute) Positive blood culture Zoster Encephalitis Acute respiratory failure with hypoxia Thrombocytopenia Sepsis (Acute) Aortic stenosis (Acute) Infectious encephalopathy (Acute) Pneumonia (Acute) Hypoxia (Acute) DVT prophylaxis Acute decompensated heart failure Metabolic encephalopathy Severe sepsis Herpes zoster CAD (coronary artery disease) (Chronic) History of percutaneous coronary intervention (Chronic) prior to TAVR in order to protect her left main, she also had a 3.5 x 23 millimeter drug-eluting stent placed in the left main/LAD, which was expanded out into the aorta. Encounter for pre-operative examination Heart murmur (Chronic) SOB (shortness of breath) Aortic valvar stenosis (Chronic) Cataract (Chronic) Dyslipidemia (Chronic) Heart failure (Chronic) History of removal of breast implant (Chronic) "Left " History of carpal tunnel surgery of left wrist (Chronic) TAVR 2018 History of carpal tunnel surgery of right wrist (Chronic) Previous section (Chronic) H/O colonoscopy (Chronic) S/P mastectomy, bilateral (Chronic) History of partial colectomy (Chronic) History of appendectomy (Chronic) History of hysterectomy with bilateral oophorectomy (Chronic) Medical History Acute hyperglycemia Hypomagnesemia Hypokalemia Intertrigo Chest pain Pulmonary embolism Altered mental status UTI (urinary tract infection) Pleuritic chest pain CKD (chronic kidney disease) stage 3, GFR 30-59 ml/min IDDM (insulin dependent diabetes mellitus) CAD (coronary artery disease) Uterine cancer 2014--sx, no chemo/radiation Breast cancer, right breast 2007--Sx, chemo/radiation Colon cancer 2004--sx, no chemo or radiation Liver cirrhosis non-alcoholic Hypothyroidism Diabetes mellitus, type 2 On anticoagulant therapy Cataract of both eyes Depression Anxiety Aortic valve stenosis Cardiac murmur Follows with Dr. Muniz Hyperlipidemia Hypertension Sleep apnea Cpap History of removal of breast implant "Left " Depression with anxiety DANYELLE (obstructive sleep apnea) Hypothyroidism HTN (hypertension) Heart failure Dyslipidemia Cataract Aortic valvar stenosis Breast cancer Colon cancer Surgical History Presence of stent in coronary artery S/P TAVR (transcatheter aortic valve replacement) History of percutaneous coronary intervention prior to TAVR in order to protect her left main, she also had a 3.5 x 23 millimeter drug-eluting stent placed in the left main/LAD, which was expanded out into the aorta. History of cardiac cath x2--2010 @ [facility] 07/2017 @ [facility]-no stent, follows with Dr. Muniz S/P foot surgery, right "foot was widening" History of section x4 H/O breast surgery L implant infected and was removed History of breast reconstruction Bilt breast after masectomy History of bilateral tubal ligation History of dilatation and curettage History of carpal tunnel release bilt History of colonoscopy History of esophagogastroduodenoscopy (EGD) History of total abdominal hysterectomy and bilateral salpingo-oophorectomy 2014 D/T uterine cancer H/O breast biopsy right--malignant H/O bilateral mastectomy 01/2008--breast cancer [place] of [place] [facility] [place] Colon Cancer History of appendectomy History of open heart surgery 2011 [place] [facility] [place] H[place]O aortic valve replacement 06/2017 [place] [facility] [place] History of hysterectomy with bilateral oophorectomy History of appendectomy History of partial colectomy S/P mastectomy, bilateral H/O colonoscopy Previous section History of carpal tunnel surgery of right wrist History of carpal tunnel surgery of left wrist TAVR 2017 H/O aortic valve replacement #25 Manga aortic valve bioprosthesis placed in 2010, and 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 On 11/06/2017 she underwent transcatheter aortic valve replacement receiving a 26 mm Hernandez-Bing S3 prosthesis Family History Grandmother Family history of diabetes mellitus maternal Family/Other Family history of diabetes mellitus paternal aunt Father , of premature CAD Coronary heart disease Mother , of premature CAD Coronary heart disease Social History Smoking Status: Never smoker Second Hand Exposure: No; Do You Dip or Chew Tobacco: No; Hx Alcohol Use: Yes Alcohol type: beer and wine Hx Substance Use: No Preferred Language: Icelandic Communication Ability: Effective Excel Analyst Required: No Beliefs That Will Affect Care: None marital status: Single marital status details: has fiance Current Living Situation: Alone Current Living Situation Comment: aid from 8-3 M-F Other Information That Helps Us Care for You: No Feels Safe at Home: Yes Safety Concerns: Feels Safe At This Time Assistive Devices: Cane, CPAP and Walker Allergies Allergies Allergy/AdvReac Type Severity Reaction Status Date / Time glycerin Allergy Intermediate ITCHING, Verified 11/10/23 00:17 BURNING FROM TOPICALS lactose Allergy Intermediate Gastrointestinal Verified 11/10/23 00:17 Upset Penicillins Allergy Intermediate Rash Verified 11/10/23 00:17 adhesive tape AdvReac Intermediate CAN NOT Verified 11/10/23 00:17 TOLERATE BANDAIDS lisinopril AdvReac Intermediate Cough Verified 11/10/23 00:17 monosodium glutamate AdvReac Intermediate EDEMA OF Verified 11/10/23 00:17 HANDS & FEET Home Meds Home Medications Medication Instructions Recorded Confirmed atorvastatin 40 mg tablet (Lipitor) 40 mg PO DAILY 05/02/19 06/05/24 clopidogrel 75 mg tablet (Plavix) 75 mg PO DAILY 05/02/19 06/05/24 levothyroxine 75 mcg tablet 75 mcg PO DAILY 05/02/19 06/05/24 meclizine 25 mg tablet 50 mg PO BID 05/02/19 06/05/24 magnesium oxide 400 mg PO DAILY 02/14/23 06/05/24 trazodone 100 mg tablet 300 mg PO HS PRN Insomnia 02/14/23 06/05/24 ammonium lactate 12 % lotion 1 applic topical DAILY 06/03/23 06/05/24 aspirin 81 mg tablet,delayed 81 mg PO DAILY 06/03/23 06/05/24 release cranberry extract-vitamin C 250 2 cap PO TID 06/03/23 06/05/24 mg-60 mg capsule (Azo Cranberry Plus Vit C) fluticasone propionate 50 2 spray intranasal DAILY 06/03/23 06/05/24 mcg/actuation nasal spray,suspension insulin degludec 200 unit/mL (3 36 unit subcut DAILY 06/03/23 06/05/24 mL) subcutaneous pen (Tresiba FlexTouch U-200 insulin) melatonin 10 mg tablet 10 mg PO HS 06/03/23 06/05/24 multivitamin with minerals 1 tab PO DAILY 06/03/23 06/05/24 nystatin 100,000 unit/gram topical 1 applic topical DIRECTED PRN 06/03/23 06/05/24 powder Skin Irritation semaglutide 2 mg/dose (8 mg/3 mL) 2 mg subcut WK 06/03/23 06/05/24 subcutaneous pen injector (Ozempic) Al hyd-Mg tr-alg ac-sod bicarb 80 1 tab PO DIRECTED PRN Gi Upset 10/27/23 06/05/24 mg-14.2 mg chewable tablet (Gaviscon) insulin aspart U-100 100 unit/mL 0 unit subcut TIDM 50 UNITS/DAILY 10/27/23 06/05/24 (3 mL) subcutaneous pen (Novolog FlexPen U-100 Insulin aspart) metoprolol tartrate 25 mg tablet 50 mg PO BID 10/27/23 06/05/24 gabapentin 300 mg capsule 300 mg PO TID 06/05/24 06/05/24 potassium chloride 10 mEq 10 meq PO BID 06/05/24 06/05/24 tablet,extended release(part/cryst) (Klor-Con M) Previous Rx's Medication Instructions Recorded flash glucose scanning reader #1 ea 02/15/23 ([facility] [place]) Results & Data (ED) Vital Signs Vital Signs - 24 hr 06/05/24 13:20 06/05/24 13:32 06/05/24 14:03 Pulse Rate 89 Pulse Rate [Right Finger] 84 85 Pulse Rhythm [Right Finger] Regular Regular Pulse Strength [Right Finger] Normal Normal Respiratory Rate 14 21 Respiratory Effort / Characteristics Non-Labored Non-Labored Respiratory Depth Normal Normal Respiratory Pattern Regular Regular Blood Pressure [Right Arm] 128/81 125/85 Blood Pressure Mean [Right Arm] 96 98 Blood Pressure Position [Right Arm] Lying Lying Pulse Oximetry 95 98 Oxygen Delivery Method Room Air Room Air Laboratory Data 06/06/24 05:29 06/06/24 05:29 Lab Results 06/05/24 06/05/24 06/05/24 Range/Units 10:15 12:15 13:23 WBC 7.16 (4.8-10.8) K/ul RBC 4.34 (4.20-5.40) M/uL Hgb 11.7 L (12.0-16.0) g/dl Hct 34.8 L (37.0-47.0) % MCV 80.2 (80.0-100.0) fL MCH 27.0 (25.0-34.0) pg MCHC 33.6 (32.0-36.0) g/dL RDW Std Deviation 39.3 (36.4-46.3) fL RDW Coeff of Valerio 13.5 (11.5-14.5) % Plt Count 121 L (130-400) K/uL MPV 11.2 (9.4-12.4) fL Immature Gran % (Auto) 1.1 % Neut % (Auto) 65.7 % Lymph % (Auto) 21.9 % [place] % (Auto) 8.1 % Eos % (Auto) 2.5 % Baso % (Auto) 0.7 % Neut # (Auto) 4.70 (1.40-6.50) K/uL Lymph # (Auto) 1.57 (1.20-3.40) K/uL [place] # (Auto) 0.58 (0.11-0.59) K/uL Eos # (Auto) 0.18 (0.00-0.50) K/uL Baso # (Auto) 0.05 (0.00-0.20) K/uL Immature Gran # (Auto) 0.08 (0.01-0.20) K/uL Sodium 130 L (136-145) mmol/L Potassium 3.2 L (3.5-5.1) mmol/L Chloride 96 L (98-107) mmol/L Carbon Dioxide 27 (21-32) mmol/L Anion Gap 7 (3-11) BUN 19 (6-23) mg/dl Creatinine 1.03 (0.6-1.2) mg/dl Est Cr Clr Drug Dosing 53.9 ml/min Est GFR ( Amer) 66.1 ml/min Est GFR (Non-Af Amer) 57.0 ml/min BUN/Creatinine Ratio 18.4 (10-20) Glucose 433 H* (70-99(Fasting)) mg/dl POC Glucose 311 H* (70-99) mg/dl Calcium 8.9 (8.6-10.3) mg/dl Magnesium 1.7 (1.7-2.4) mg/dl Total Bilirubin 0.4 (0.2-1.0) mg/dl Direct Bilirubin 0.1 (0-0.2) mg/dl AST 11 L (13-39) U/L ALT 8 (7-52) U/L Alkaline Phosphatase 78 (34-104) U/L Total Protein 6.3 (6.0-8.3) gm/dl Albumin 3.2 L (3.4-5.0) gm/dl Urine Color Yellow Urine Appearance Cloudy A (Clear) Urine pH 5.5 (4.5-7.5) Ur Specific [place] 1.015 (1.000-1.030) Urine Protein Negative (Negative) Urine Glucose (UA) 3+ H (Negative) Urine Ketones Negative (Negative) Urine Blood Negative (Negative) Urine Nitrite Positive A (Negative) Urine Bilirubin Negative (Negative) Urine Urobilinogen Negative (Negative) Ur Leukocyte Esterase 2+ H (Negative) Urine WBC (Auto) >50 H (0-5) /hpf Urine RBC (Auto) 0-2 (0-2) /hpf U Hyaline Cast (Auto) 0-2 (0-2) /lpf U Epithel Cells (Auto) 0-2 (0-2) /hpf Urine Bacteria (Auto) 4+ H (None Seen) Administered Medications Acetaminophen (Acetaminophen 325 Mg Tab) 650 mg PO Q4H PRN PRN Reason: Moderate Pain (Scale 4, 5, 6) Stop: 07/05/24 15:35 Last Admin: 06/06/24 09:13 Dose: 650 mg Documented By: JONATHON Aspirin (Aspirin 81 Mg Ectab) 81 mg PO DAILY [facility] Stop: 07/06/24 08:59 Last Admin: 06/06/24 09:14 Dose: 81 mg Documented By: JONATHON Atorvastatin Calcium (Atorvastatin 40 Mg Tab) 40 mg PO DAILY [facility] Stop: 07/06/24 08:59 Last Admin: 06/06/24 09:14 Dose: 40 mg Documented By: JONATHON Clopidogrel Bisulfate (Clopidogrel Bisulfate 75 Mg Tab) 75 mg PO DAILY [facility] Stop: 07/06/24 08:59 Last Admin: 06/06/24 09:13 Dose: 75 mg Documented By: JONATHON Fidaxomicin (Fidaxomicin 200 Mg Tab) 200 mg PO BID [facility] Stop: 06/15/24 20:59 Last Admin: 06/06/24 09:45 Dose: 200 mg Documented By: Admin: 06/05/24 20:38 Dose: 200 mg Documented By: VERA Fluticasone Propionate (Fluticasone Propionate Na Spr 16 Gm Btl) 2 sprays NA DAILY [facility] Stop: 07/06/24 08:59 Last Admin: 06/06/24 09:15 Dose: 2 sprays Documented By: JONATHON Gabapentin (Gabapentin 300 Mg Cap) 300 mg PO TID [facility] Stop: 07/05/24 20:59 Last Admin: 06/06/24 09:14 Dose: 300 mg Documented By: Admin: 06/05/24 20:39 Dose: 300 mg Documented By: VERA Heparin Sodium (Porcine) (Heparin Sod 5,000 Unit/0.5 Ml Vial) 5,000 units SQ Q12 [facility] Stop: 07/05/24 20:59 Last Admin: 06/06/24 09:13 Dose: 5,000 units Documented By: Admin: 06/05/24 20:38 Dose: 5,000 units Documented By: VERA Potassium Chloride/Sodium Chloride (Normal Saline W/20 Meq Kcl) 20 meq in 1,000 mls @ 80 mls/hr IV .[id number] [facility]GENY Stop: 06/06/24 16:59 Last Admin: 06/06/24 09:12 Dose: 80 mls/hr Documented By: Infusion: 06/06/24 05:11 Dose: Infused Documented By: Infusion: 06/05/24 17:56 Dose: 80 mls/hr Documented By: Infusion: 06/05/24 17:28 Dose: 0 mls/hr Documented By: Admin: 06/05/24 16:12 Dose: 80 mls/hr Documented By: JETT Insulin Aspart (Insulin Aspart Per Unit Charge) 0 units SC ACHS [facility] Stop: 07/05/24 16:29 Last Admin: 06/06/24 09:45 Dose: 7 units Documented By: JONATHON Co-signed By: CRISTINA Admin: 06/05/24 21:54 Dose: Not Given Documented By: VERA Co-signed By: DONG Admin: 06/05/24 16:58 Dose: 9 units Documented By: JETT Co-signed By: JONATHON Lactobacillus Acidophilus (Advanced Probiotic 625 Mg Capsule) 1,250 mg PO DAILY [facility] Stop: 07/06/24 08:59 Last Admin: 06/06/24 09:13 Dose: 1,250 mg Documented By: JONATHON Levothyroxine Sodium (Levothyroxine Sodium 75 Mcg Tablet) 75 mcg PO DAILYBB [facility] Stop: 07/06/24 06:29 Last Admin: 06/06/24 05:28 Dose: 75 mcg Documented By: VERA Meclizine HCl (Meclizine Hcl 25 Mg Tab) 50 mg PO BID [facility] Stop: 07/05/24 20:59 Last Admin: 06/06/24 09:13 Dose: 50 mg Documented By: Admin: 06/05/24 20:40 Dose: 50 mg Documented By: VERA Melatonin (Melatonin 3 Mg Tab) 9 mg PO HS [facility] Stop: 07/05/24 20:59 Last Admin: 06/05/24 20:38 Dose: 9 mg Documented By: VERA Metoprolol Tartrate (Metoprolol Tartrate 50 Mg Tab) 50 mg PO BID [facility] Stop: 07/05/24 20:59 Last Admin: 06/06/24 09:13 Dose: 50 mg Documented By: Admin: 06/05/24 20:39 Dose: 50 mg Documented By: VERA Potassium Chloride (Potassium Chloride 10 Meq Tabcr) 10 meq PO BID [facility] Stop: 07/06/24 07:59 Last Admin: 06/06/24 09:15 Dose: Not Given Documented By: Admin: 06/06/24 09:12 Dose: 10 meq Documented By: JONATHON Discontinued Medications Hydromorphone HCl (Hydromorphone Inj 0.5 Mg/0.5 Ml Syr) 0.5 mg IV NOW STA Stop: 06/05/24 12:02 Last Admin: 06/05/24 13:21 Dose: 0.5 mg Documented By: MARY Sodium Chloride (Nss) 1,000 mls @ 999 mls/hr IV .Q1H1M ONE Stop: 06/05/24 11:45 Last Infusion: 06/05/24 15:21 Dose: Infused Documented By: Admin: 06/05/24 10:52 Dose: 999 mls/hr Documented By: ERIC Sodium Chloride (Nss) 1,000 mls @ 125 mls/hr IV .Q8H EVGENY Stop: 07/05/24 13:59 Last Admin: 06/05/24 15:38 Dose: Not Given Documented By: JETT Ioversol (Optiray 320 100ml) 94 ml IV ONCE ONE Stop: 06/05/24 12:20 Last Admin: 06/05/24 12:20 Dose: 94 ml Documented By: ENRRIQUE Potassium Chloride (Potassium Chloride Crtab 20 Meq Tabcr) 40 meq PO NOW STA Stop: 06/05/24 15:37 Last Admin: 06/05/24 16:12 Dose: 40 meq Documented By: JETT Imaging Data Radiologist's Impression: Abdomen/Pelvis CT 06/05/24 12:[address] WITH IV CONTRAST CT DOSE: 1043.62 mGy.cm HISTORY: Acute generalized abdominal pain diffuse abdominal pain TECHNIQUE: Multiaxial CT images of the abdomen and pelvis were performed following the IV administration of 94 cc of Optiray, A dose lowering technique was utilized adhering to the principles of ALARA. COMPARISON STUDY: 06/06/2023 FINDINGS: Partially imaged left breast implant with pericapsular soft tissue thickening and small pericapsular collection which is similar to prior. Clear lung bases. Cardiomegaly with retained epicardial leads. No pneumatosis or pneumoperitoneum. The spleen is enlarged, 16 cm. Subcentimeter ill-defined hypodense focus of the mid spleen is unchanged and likely benign. Unremarkable pancreas and left adrenal gland. Right adrenal myelolipoma, 1.6 cm. There are a few small cysts noted within the liver. Mild marginal nodularity of the liver may represent early cirrhosis. Patency of the hepatic and portal veins. Unremarkable gallbladder. Right renal cysts are noted. There is a 2.6 cm exophytic mildly hyperdense lesion of the right kidney which previously measured 2.1 cm. This favors a complex cyst however is indeterminate. 5 mm nonobstructing calculus of the inferior pole right kidney. No hydronephrosis. Bladder wall thickening with partial distention. Hysterectomy. Atherosclerosis of the aorta without aneurysm. There is circumferential wall thickening of the rectum and majority of the large bowel with adjacent pericolonic and perirectal inflammatory stranding. A normal appendix is not visualized. On the prior study there was a cystic structure in the lower abdomen adjacent to the cecum which measured 5.4 cm. This has decreased in size from prior now measures 1.6 cm. No acute fracture. IMPRESSION: 1. Findings compatible with a nonspecific pancolitis, likely infectious or inflammatory. 2. No bowel obstruction or pneumoperitoneum. 3. Right nephrolithiasis. 4. Increased size of the probable complex cyst of the right kidney now measuring 2.6 cm. 5. Additional findings as above. ACT 112: Negative or not required by law. The above report was generated using voice recognition software. It may contain grammatical, syntax or spelling errors. Electronically signed by: Rafa Leslie M.D. 06/05/2024 1:19 PM Discharge Plan Visit Data Chief Complaint: Diarrhea Stated Complaint: DIARRHEA, DEHYDRATION ED Provider: Jose Booker Discharge Problem: Pancolitis, C. difficile colitis, Failure of outpatient treatment Patient Disposition: Admitted As Inpatient Discharge Instructions Interventions: ED Discharge Assessment Last Done: 06/05/24 15:20
[2024-06-05] MEDS: SODIUM CHLORIDE 0.9% 1,000 ML IV ONE (10:52)
[2024-06-05 11:06] LABS: Basophils # (auto) 0.05 K/uL (0.00-0.20); Basophils % (auto) 0.7 %; Eosinophils # (auto) 0.18 K/uL (0.00-0.50); Eosinophils % (auto) 2.5 %; Hematocrit (blood only) 34.8 % (37.0-47.0); Hemoglobin 11.7 g/dl (12.0-16.0); Immature Granulocytes # (auto) 0.08 K/uL (0.01-0.20); Immature Granulocytes % (auto) 1.1 %; Lymphocytes # (auto) 1.57 K/uL (1.20-3.40); Lymphocytes % (auto) 21.9 %; Mean Corpuscular Hgb Conc 33.6 g/dL (32.0-36.0); Mean Corpuscular Volume 80.2 fL (80.0-100.0); Mean Platelet Volume 11.2 fL (9.4-12.4); Monocytes # (auto) 0.58 K/uL (0.11-0.59); Monocytes % (auto) 8.1 %; Neutrophils % (auto) 65.7 %; Platelet Count 121 K/uL (130-400); RDW Coefficient of Variation 13.5 % (11.5-14.5); RDW Standard Deviation 39.3 fL (36.4-46.3); Red Blood Count 4.34 M/uL (4.20-5.40); White Blood Count 7.16 K/ul (4.8-10.8)
[2024-06-05 11:36] LABS: Albumin Level 3.2 gm/dl (3.4-5.0); BUN Creatinine Ratio 18.4 (10-20); Bilirubin Direct 0.1 mg/dl (0-0.2); Bilirubin,Total 0.4 mg/dl (0.2-1.0); Calcium 8.9 mg/dl (8.6-10.3); Creatinine Clr Calc Pharmacy 53.9 ml/min; Est GFR (African American) 66.1 ml/min; Magnesium 1.7 mg/dl (1.7-2.4); Potassium 3.2 mmol/L (3.5-5.1); Total Protein 6.3 gm/dl (6.0-8.3)
[2024-06-05] MEDS: OPTIRAY 320 100ml IV ONE (12:20)
[2024-06-05 13:02] LABS: Appearance Urine Cloudy (Clear); Bacteria Urine Automated 4+ (None Seen); Bilirubin Urine Negative (Negative); Blood Urine Negative (Negative); Cast Urine Automated 0-2 /lpf (0-2); Color Urine Yellow; Epithelial Cell Urine Auto 0-2 /hpf (0-2); Glucose Urine UA 3+ (Negative); Ketones Urine Negative (Negative); Leukocyte Esterase Urine 2+ (Negative); Nitrite Urine Positive (Negative); Protein Urine Negative (Negative); RBC Urine Automated 0-2 /hpf (0-2); Specific Gravity Urine 1.015 (1.000-1.030); Urobilinogen Urine Negative (Negative); WBC Urine Automated >50 /hpf (0-5); pH Urine 5.5 (4.5-7.5)
[2024-06-05] MEDS: HYDROmorphone INJ 0.5 MG/0.5 ML SYR IV STA (13:21)
--- NOTE | 2024-06-05 13:21 | CT Scan Report ---
ABDOMEN AND PELVIS CT WITH IV CONTRAST CT DOSE: 1043.62 mGy.cm HISTORY: Acute generalized abdominal pain diffuse abdominal pain TECHNIQUE: Multiaxial CT images of the abdomen and pelvis were performed following the IV administrat ion of 94 cc of Optiray, A dose lowering technique was utilized adhering to the principles of ALARA. COMPARISON STUDY: 06/06/2023 FINDINGS: Partially imaged left breast implant with pericapsular soft tissue thickening and small per icapsular collection which is similar to prior. Clear lung bases. Cardiomegaly with retained epicardi al leads. No pneumatosis or pneumoperitoneum. The spleen is enlarged, 16 cm. Subcentimeter ill-define d hypodense focus of the mid spleen is unchanged and likely benign. Unremarkable pancreas and left ad renal gland. Right adrenal myelolipoma, 1.6 cm. There are a few small cysts noted within the liver. M ild marginal nodularity of the liver may represent early cirrhosis. Patency of the hepatic and portal veins. Unremarkable gallbladder. Right renal cysts are noted. There is a 2.6 cm exophytic mildly hyperdense lesion of the right kidney which previously measured 2.1 cm. This favors a complex cyst however is indeterminate. 5 mm nonobstr ucting calculus of the inferior pole right kidney. No hydronephrosis. Bladder wall thickening with pa rtial distention. Hysterectomy. Atherosclerosis of the aorta without aneurysm. There is circumferenti al wall thickening of the rectum and majority of the large bowel with adjacent pericolonic and perire ctal inflammatory stranding. A normal appendix is not visualized. On the prior study there was a cyst ic structure in the lower abdomen adjacent to the cecum which measured 5.4 cm. This has decreased in size from prior now measures 1.6 cm. No acute fracture. IMPRESSION: 1. Findings compatible with a nonspecific pancolitis, likely infectious or inflammatory. 2. No bowel obstruction or pneumoperitoneum. 3. Right nephrolithiasis. 4. Increased size of the probable complex cyst of the right kidney now measuring 2.6 cm. 5. Additional findings as above. ACT 112: Negative or not required by law. The above report was generated using voice recognition software. It may contain grammatical, syntax o r spelling errors. Electronically signed by: Rafa Leslie M.D. 06/05/2024 1:19 PM
--- NOTE | 2024-06-05 14:01 | History & Physical Report ---
Date of Service June 05, 2024 Assessment & Plan (1) C. difficile diarrhea: (2) Acute diarrhea: (3) DM II (diabetes mellitus, type II), controlled: (4) Pancolitis: (5) Diastolic congestive heart failure: (6) Atrial fibrillation with rapid ventricular response: (7) Aortic stenosis: (8) Dyslipidemia: (9) CAD (coronary artery disease): (10) Colon cancer: (11) Breast cancer, right breast: (12) Uterine cancer: (13) Liver cirrhosis: (14) Hypothyroidism: Plan Abdominal Pain Diarrhea Hx of C.diff colitis - Admit to med surg - Consult GI - Completed PO vanc starting on 05/06/24 x 1 month as outpatient, with worsening diarrhea x 10 days. Will start her on dificid now - C. diff and stool biofire in process - Probiotic - CT abd/pelvis showing pancolitis on imaging today, personally reviewed, no bowel obstruction - Holding mag ox per home med rec as this could worsen her diarrhea Possible UTI - Pt had sx last week but does not endorse any urinary sx today - Follow urine culture. UA does appear infected however do not want to add antibiotic to worsen c diff at this time with her not having symptoms. CAD status post stent - Continue with home aspirin 81 mg, atorvastatin, Plavix, metoprolol Heart failure with preserved ejection fraction/aortic stenosis status post TAVR in 2016 - Appears dry on exam, cont NSS + 20 meq KCL x 2 bags - Monitor for volume overload - I/Os A-fib: Rate controlled on metoprolol tartrate 50 mg Q12H DM II - ISS with accuchecks ACHS - Takes ozempic 2 mg once weekly on Mondays - Tresiba 36 U QAM - Last A1C 8.8 in Oct 2023, recheck with am labs Hypothyroidism -Continue home Synthroid 75 mcg daily, Check TSH with am labs Colon, uterine and breast cancer - Status post bilateral mastectomy, chemotherapy and radiation in 2007. DANYELLE -CPAP nightly CKD stage III - Stable. Cirrhosis secondary to [place] - No confusion on exam. Monitor for volume overload. 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: - Continue home meclizine Bipolar Disorder Schizoaffective disorder - Continue home medications: cymbalta - Does not appear to be on any other home meds for mood stabilization DVT ppx: teds, scds, ambulatory Lines: PIV x1 Diet: HH/DM CODE: FULL Dispo: From home, likely to remain in the hospital x 1-2 days A total of 77 minutes were spent with greater than 50% of that time face to face with the patient, personally reviewing all current laboratories, imaging studies, past medication reconciliation, outpatient chart review, and discussion with specialists to collaborate care for the patient with attending. Please see attending documentation for corrections and/or additions. History of Present Illness Primary Care Provider: Gregory Rausch MD This is a 63 yo F with PMhx of aortic stenosis s/p TAVR in 2017, CAD s/p drug- eluting stent to LAD, heart failure with preserved ejection fraction, DM II, hypothyroidism, hyperlipidemia, cirrhosis secondary to [place], hypertension, questionable paroxysmal atrial fibrillation, obstructive sleep apnea intolerant to CPAP, CKD stage III, benign paroxysmal positional vertigo due to bilateral vestibular disorder, history of schizoaffective disorder, history of breast and colon cancer, history of GI bleed, history of C. difficile infection, history of COVID, history of splenic infarcts. Ms. Rose presents to the hospital with worsening abdominal pain and diarrhea for the past 10 days. She had issues with constipation before this bout of diarrhea started, mentions abd pain and nausea yesterday. She says abd pain in throughout, worse on her left side. This morning she was seen at her PCP office and referred here. Denies any chills, fevers. She has been following with GI as an outpatient, reports that she has been on vancomycin p.o. for the past 1 month for history of C. difficile colitis. She had taken the taper as directed. She took vanc this morning at home. Denies any other antibiotic use. She has never had a fecal transplant. She was sent a Rx for dificid last week however insurance did not cover it, therefore continued the vancomycin. Reports glucose has been high recently. She is off metformin since being diagnosed with cdiff. Takes Ozempic on Mondays. Pt is also on Tresiba. Pt notes some burning with urination last week, reports it went away on its own. She denies urinary frequency, dysuria or issues today. Pt takes cranberry supplement. Dizziness if a symptom she has chronically, but is on meclizine and it works well. Pt is on CPAP HS and notes sleeping well. She does report a frontal headache and takes medications for headaches like a migraine. Allergies Allergy/AdvReac Type Severity Reaction Status Date / Time glycerin Allergy Intermediate ITCHING, Verified 11/10/23 00:17 BURNING FROM TOPICALS lactose Allergy Intermediate Gastrointestinal Verified 11/10/23 00:17 Upset Penicillins Allergy Intermediate Rash Verified 11/10/23 00:17 adhesive tape AdvReac Intermediate CAN NOT Verified 11/10/23 00:17 TOLERATE BANDAIDS lisinopril AdvReac Intermediate Cough Verified 11/10/23 00:17 monosodium glutamate AdvReac Intermediate EDEMA OF Verified 11/10/23 00:17 HANDS & FEET Home Medications Medication Instructions Recorded Confirmed Type atorvastatin 40 mg tablet (Lipitor) 40 mg PO DAILY 05/02/19 06/05/24 History clopidogrel 75 mg tablet (Plavix) 75 mg PO DAILY 05/02/19 06/05/24 History levothyroxine 75 mcg tablet 75 mcg PO DAILY 05/02/19 06/05/24 History meclizine 25 mg tablet 50 mg PO BID 05/02/19 06/05/24 History magnesium oxide 400 mg PO DAILY 02/14/23 06/05/24 History trazodone 100 mg tablet 300 mg PO HS PRN Insomnia 02/14/23 06/05/24 History flash glucose scanning reader #1 ea 02/15/23 06/05/24 Rx ([email or web address] Keisha 2 [place]) ammonium lactate 12 % lotion 1 applic topical DAILY 06/03/23 06/05/24 History aspirin 81 mg tablet,delayed 81 mg PO DAILY 06/03/23 06/05/24 History release cranberry extract-vitamin C 250 2 cap PO TID 06/03/23 06/05/24 History mg-60 mg capsule (Azo Cranberry Plus Vit C) fluticasone propionate 50 2 spray intranasal DAILY 06/03/23 06/05/24 History mcg/actuation nasal spray,suspension insulin degludec 200 unit/mL (3 36 unit subcut DAILY 06/03/23 06/05/24 History mL) subcutaneous pen (Tresiba FlexTouch U-200 insulin) melatonin 10 mg tablet 10 mg PO HS 06/03/23 06/05/24 History multivitamin with minerals 1 tab PO DAILY 06/03/23 06/05/24 History nystatin 100,000 unit/gram topical 1 applic topical DIRECTED PRN 06/03/23 06/05/24 History powder Skin Irritation semaglutide 2 mg/dose (8 mg/3 mL) 2 mg subcut WK 06/03/23 06/05/24 History subcutaneous pen injector (Ozempic) Al hyd-Mg tr-alg ac-sod bicarb 80 1 tab PO DIRECTED PRN Gi Upset 10/27/23 06/05/24 History mg-14.2 mg chewable tablet (Gaviscon) insulin aspart U-100 100 unit/mL 0 unit subcut TIDM 50 UNITS/DAILY 10/27/23 06/05/24 History (3 mL) subcutaneous pen (Novolog FlexPen U-100 Insulin aspart) metoprolol tartrate 25 mg tablet 50 mg PO BID 10/27/23 06/05/24 History gabapentin 300 mg capsule 300 mg PO TID 06/05/24 06/05/24 History potassium chloride 10 mEq 10 meq PO BID 06/05/24 06/05/24 History tablet,extended release(part/cryst) (Jing Arevalo) Past Med/Surg History Problem List (Updated 12/02/23 @ 00:07 by Background Ketty) Failure of outpatient treatment (Acute) C. difficile colitis (Acute) Pancolitis (Acute) Pancolitis C. difficile diarrhea (Acute) Acute diarrhea (Acute) Hypomagnesemia (Acute) Weakness (Acute) Acute renal failure Electrolyte and fluid disorder DM II (diabetes mellitus, type II), controlled Metabolic alkalosis Dizziness (Acute) Acute hypokalemia (Acute) Hypoxia (Acute) Acute hyponatremia (Acute) Perforated abdominal viscus Paroxysmal A-fib Respiratory failure Diastolic congestive heart failure Atrial fibrillation with rapid ventricular response Encephalopathy AMS (altered mental status) (Acute) Acute hyperglycemia (Acute) Elevated lactic acid level (Acute) UTI (urinary tract infection) (Acute) Positive blood culture Zoster Encephalitis Acute respiratory failure with hypoxia Thrombocytopenia Sepsis (Acute) Aortic stenosis (Acute) Infectious encephalopathy (Acute) Pneumonia (Acute) Hypoxia (Acute) DVT prophylaxis Acute decompensated heart failure Metabolic encephalopathy Severe sepsis Herpes zoster CAD (coronary artery disease) (Chronic) History of percutaneous coronary intervention (Chronic) prior to TAVR in order to protect her left main, she also had a 3.5 x 23 millimeter drug-eluting stent placed in the left main/LAD, which was expanded out into the aorta. Encounter for pre-operative examination Heart murmur (Chronic) SOB (shortness of breath) Aortic valvar stenosis (Chronic) Cataract (Chronic) Dyslipidemia (Chronic) Heart failure (Chronic) History of removal of breast implant (Chronic) "Left " History of carpal tunnel surgery of left wrist (Chronic) TAVR 2018 History of carpal tunnel surgery of right wrist (Chronic) Previous section (Chronic) H/O colonoscopy (Chronic) S/P mastectomy, bilateral (Chronic) History of partial colectomy (Chronic) History of appendectomy (Chronic) History of hysterectomy with bilateral oophorectomy (Chronic) Medical History Acute hyperglycemia Hypomagnesemia Hypokalemia Intertrigo Chest pain Pulmonary embolism Altered mental status UTI (urinary tract infection) Pleuritic chest pain CKD (chronic kidney disease) stage 3, GFR 30-59 ml/min IDDM (insulin dependent diabetes mellitus) CAD (coronary artery disease) Uterine cancer 2014--sx, no chemo/radiation Breast cancer, right breast 2007--Sx, chemo/radiation Colon cancer 2004--sx, no chemo or radiation Liver cirrhosis non-alcoholic Hypothyroidism Diabetes mellitus, type 2 On anticoagulant therapy Cataract of both eyes Depression Anxiety Aortic valve stenosis Cardiac murmur Follows with Dr. Muniz Hyperlipidemia Hypertension Sleep apnea Cpap History of removal of breast implant "Left " Depression with anxiety DANYELLE (obstructive sleep apnea) Hypothyroidism HTN (hypertension) Heart failure Dyslipidemia Cataract Aortic valvar stenosis Breast cancer Colon cancer Surgical History Presence of stent in coronary artery S/P TAVR (transcatheter aortic valve replacement) History of percutaneous coronary intervention prior to TAVR in order to protect her left main, she also had a 3.5 x 23 millimeter drug-eluting stent placed in the left main/LAD, which was expanded out into the aorta. History of cardiac cath x2--2010 @ [facility] 07/2017 @ [facility]-no stent, follows with Dr. Muniz S/P foot surgery, right "foot was widening" History of section x4 H/O breast surgery L implant infected and was removed History of breast reconstruction Bilt breast after masectomy History of bilateral tubal ligation History of dilatation and curettage History of carpal tunnel release bilt History of colonoscopy History of esophagogastroduodenoscopy (EGD) History of total abdominal hysterectomy and bilateral salpingo-oophorectomy 2014 D/T uterine cancer H/O breast biopsy right--malignant H/O bilateral mastectomy 01/2008--breast cancer History of bowel resection [place] [facility] [place]/t Colon Cancer History of appendectomy History of open heart surgery 2011 @ [facility] [place] H/O aortic valve replacement 06/2017 [place] [facility] [place] History of hysterectomy with bilateral oophorectomy History of appendectomy History of partial colectomy S/P mastectomy, bilateral H/O colonoscopy Previous section History of carpal tunnel surgery of right wrist History of carpal tunnel surgery of left wrist TAVR 2017 H/O aortic valve replacement #25 Manga aortic valve bioprosthesis placed in 2010, and 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 On 11/06/2017 she underwent transcatheter aortic valve replacement receiving a 26 mm Hernandez-Bing S3 prosthesis Family History Grandmother Family history of diabetes mellitus maternal Family/Other Family history of diabetes mellitus paternal aunt Father , of premature CAD Coronary heart disease Mother , of premature CAD Coronary heart disease Social History Smoking Status: Never smoker Second Hand Exposure: No; Do You Dip or Chew Tobacco: No; Hx Alcohol Use: Yes Alcohol type: beer and wine Hx Substance Use: No Preferred Language: Malagasy Communication Ability: Effective Evaluation Engineer Required: No Beliefs That Will Affect Care: None marital status: Single marital status details: has fiance Current Living Situation: Alone Current Living Situation Comment: aid from 8-3 M-F Other Information That Helps Us Care for You: No Feels Safe at Home: Yes Safety Concerns: Feels Safe At This Time Assistive Devices: Cane, Glasses and Walker Review of Systems Review of Systems: Constitutional: No fever, sweats or chills, + occasional headache, + dizziness well controlled Eyes: No diplopia, no worsening or blurred vision ENT: normal hearing, no trouble swallowing Respiratory: No cough, sputum, dyspnea at rest or on exertion Cardiovascular: No chest pain, tightness or palpitations Abdomen: As per HPI. Musculoskeletal: No joint pain, calf pain, swelling Neurologic: No weakness, numbness/tingling, or balance problems Psychiatric: No anxiety or depression Skin: No rash or itch Physical Exam Physical Exam: Please refer to attending addendum for PE. Results & Data Results & Data Vital Signs (Past 12 Hours) Vital Signs Temp Pulse Pulse Resp BP BP Pulse Ox 06/05/24 13:32 89 06/05/24 13:20 84 14 128/81 95 06/05/24 11:32 92 H 20 139/89 95 06/05/24 10:18 37.2 C 83 18 129/65 94 O2 Del Method 06/05/24 13:32 06/05/24 13:20 Room Air 06/05/24 11:32 Room Air 06/05/24 10:18 Room Air Laboratory Results 06/05/24 12:15 Urine Culture - Pending Urine,Clean Catch 06/05/24 06/05/24 06/05/24 13:23 12:15 10:15 WBC 7.16 RBC 4.34 Hgb 11.7 L Hct 34.8 L MCV 80.2 MCH 27.0 MCHC 33.6 RDW Std Deviation 39.3 RDW Coeff of Valerio 13.5 Plt Count 121 L MPV 11.2 Immature Gran % (Auto) 1.1 Neut % (Auto) 65.7 Lymph % (Auto) 21.9 Stokes % (Auto) 8.1 Eos % (Auto) 2.5 Baso % (Auto) 0.7 Neut # (Auto) 4.70 Lymph # (Auto) 1.57 Stokes # (Auto) 0.58 Eos # (Auto) 0.18 Baso # (Auto) 0.05 Immature Gran # (Auto) 0.08 Sodium 130 L Potassium 3.2 L Chloride 96 L Carbon Dioxide 27 Anion Gap 7 BUN 19 Creatinine 1.03 Est Cr Clr Drug Dosing 53.9 Est GFR ( Amer) 66.1 Est GFR (Non-Af Amer) 57.0 BUN/Creatinine Ratio 18.4 Glucose 433 H* POC Glucose 311 H* Calcium 8.9 Magnesium 1.7 Total Bilirubin 0.4 Direct Bilirubin 0.1 AST 11 L ALT 8 Alkaline Phosphatase 78 Total Protein 6.3 Albumin 3.2 L Urine Color Yellow Urine Appearance Cloudy A Urine pH 5.5 Ur Specific [place] 1.015 Urine Protein Negative Urine Glucose (UA) 3+ H Urine Ketones Negative Urine Blood Negative Urine Nitrite Positive A Urine Bilirubin Negative Urine Urobilinogen Negative Ur Leukocyte Esterase 2+ H Urine WBC (Auto) >50 H Urine RBC (Auto) 0-2 U Hyaline Cast (Auto) 0-2 U Epithel Cells (Auto) 0-2 Urine Bacteria (Auto) 4+ H Diagnostic Findings Abdomen/Pelvis CT 06/05/24 12:[address] WITH IV CONTRAST CT DOSE: 1043.62 mGy.cm HISTORY: Acute generalized abdominal pain diffuse abdominal pain TECHNIQUE: Multiaxial CT images of the abdomen and pelvis were performed following the IV administration of 94 cc of Optiray, A dose lowering technique was utilized adhering to the principles of ALARA. COMPARISON STUDY: 06/06/2023 FINDINGS: Partially imaged left breast implant with pericapsular soft tissue thickening and small pericapsular collection which is similar to prior. Clear lung bases. Cardiomegaly with retained epicardial leads. No pneumatosis or pneumoperitoneum. The spleen is enlarged, 16 cm. Subcentimeter ill-defined hypodense focus of the mid spleen is unchanged and likely benign. Unremarkable pancreas and left adrenal gland. Right adrenal myelolipoma, 1.6 cm. There are a few small cysts noted within the liver. Mild marginal nodularity of the liver may represent early cirrhosis. Patency of the hepatic and portal veins. Unremarkable gallbladder. Right renal cysts are noted. There is a 2.6 cm exophytic mildly hyperdense lesion of the right kidney which previously measured 2.1 cm. This favors a complex cyst however is indeterminate. 5 mm nonobstructing calculus of the inferior pole right kidney. No hydronephrosis. Bladder wall thickening with partial distention. Hysterectomy. Atherosclerosis of the aorta without aneurysm. There is circumferential wall thickening of the rectum and majority of the large bowel with adjacent pericolonic and perirectal inflammatory stranding. A normal appendix is not visualized. On the prior study there was a cystic structure in the lower abdomen adjacent to the cecum which measured 5.4 cm. This has decreased in size from prior now measures 1.6 cm. No acute fracture. IMPRESSION: 1. Findings compatible with a nonspecific pancolitis, likely infectious or inflammatory. 2. No bowel obstruction or pneumoperitoneum. 3. Right nephrolithiasis. 4. Increased size of the probable complex cyst of the right kidney now measuring 2.6 cm. 5. Additional findings as above. ACT 112: Negative or not required by law. The above report was generated using voice recognition software. It may contain grammatical, syntax or spelling errors. Electronically signed by: Rafa Leslie M.D. 06/05/2024 1:19 PM Code Status & VTE Plan Code Status Full code - discussed with pt at bedside Supervising Physician Co-Signing Physician Notes Patient is a 62-year-old female with history of uncontrolled diabetes mellitus type II, coronary disease, colon cancer, breast cancer, hyperlipidemia, [place] cirrhosis, aortic stenosis S/P TAVR, hypothyroidism, diastolic heart failure and other medical problems presents with history of ongoing worsening diarrhea associated with some abdominal discomfort since 10 days duration. Patient has history of C. difficile and has been on tapering course of p.o. vancomycin which did not resolve her symptoms. PCP prescribed Dificid which was not not covered by insurance and so was taking p.o. vancomycin. She was discontinued on metformin. She admits to have transient dysuria 1 week ago which currently resolved. Please review HPI for complete details of presentation. I personally reviewed blood work and imaging studies. Noted chronic thrombocytopenia 121K, glucose elevated at 433, potassium 3.2, chloride 96. CT abdomen suggestive of pancolitis, increased complex right kidney cyst measuring 2.6 cm, right nephrolithiasis. Urinalysis suggestive of possible UTI. Physical Exam: Vitals signs as noted above General Appearance:Moderately built and nourished, no apparent distress Head: normocephalic, Atraumatic Eyes: normal inspection, EOMI Neck: supple, Trachea midline Respiratory/Chest: Normal breath sounds, CTA, S/P B/L mastectomy, no accessory muscle use Cardiovascular: S1, S2, No murmur Abdomen/GI:Soft, mildly distended, L>R lower quadrant tender, Bowel sounds present Extremities/Musculoskeletal:normal inspection, no edema Neurologic/Psych:AAOX3, grossly no focal neurological deficits Skin: normal color, warm Recurrent C. difficile colitis Failed p.o. vancomycin treatment CT abdomen as above Started on Dificid GI consulted Recheck stool studies Gentle IV fluids as needed Hypokalemia Secondary to GI losses Replete electrolytes as needed Uncontrolled diabetes mellitus Continue insulin while hospitalized Monitor blood glucose levels hospice educator consulted Abnormal urinalysis ? UTI Currently denies any symptoms Given ongoing C. difficile colitis, will hold antibiotics for now Right renal cyst Needs follow-up as outpatient with urology I personally interviewed and examined at bedside. Patient's care is coordinated with Chica Escalante PA-C. I have reviewed the advanced practitioner's documentation, and I agree with plan of care. Please refer to the documentation above for details of patient's presentation and for discussion of other issues. I spent a total [id number] coordinating, documenting, and providing care for this patient excluding time spent in the performance of separately billed services. (7) Aortic stenosis Cardiac valve disease etiology: nonrheumatic Qualified Code(s): I35.0 - Nonrheumatic aortic (valve) stenosis
--- OUTSIDE RECORDS SUMMARY | 2024-06-05 14:36 | External Medical Summary | Summary of Care ---
Author Name Unknown Organization [facility] Address [address] [place] [address] Phone [phone] Care Team Providers Care Dehydrator Name Role Phone Gregory Rausch MD Primary Care Provider [phone] Reason for Visit * Reason Onset Date Comments Appointment 06/03/2024 Encounter Details Date Type Department Care Team (Late st Contact Info) Description 06/03/2024 Telephone Family Practice [facility] [place] [address] Gregory Rausch MD [address] [facility] [place] [id number] Appointment Allergies Active Allergy Reactions Criticality Noted Date Comments Adhesive Tape 07/02/2017 Can tolerate band-aids Glycerin Other (Please comment) 03/12/2008 Topical agents with glycein-burning & itching Lactose 12/09/2014 Dairy - gas Lisinopril Cough 01/21/2010 Monosodium Glutamate Edema Other 03/12/2008 Hands and feet Penicillins Rash 11/14/2007 documented as of this encounter (statuses as of 06/04/2024) Medications Medication Sig Dispensed Refills Start Date End Date Status aspirin enteric coated 81 MG TBECIndications:Aort ic valve disorder Take 1 Tab by mouth daily. 90 Tab 11 09/30/2018 Active AZO Cranberry 250-30 MG Oral Tablet Take 1 Tablet by mouth in the morning and 1 Tablet before bedtime. Active BD Glucose 5 GM Oral Tablet Chewable (Glucose)Indications :DM type 2, not at goal ([facility]) 3 every 15 minutes until glucose is > 100 mg/dL for hypoglycemia E11.9 100 Tab 3 07/06/2021 Active OneTouch Verio w/Device Kit Use up to 4 times a day E11.9 1 Kit 02/10/2022 Active OneTouch Delica Lancets 33G TEST 4 TIMES DAILY DIRECTED, E11.9 400 Each 3 02/10/2022 Active Melatonin 10 MG Oral CapsuleIndications:s leep Take 1 Capsule by mouth at bedtime. Active Gaviscon 80-14.2 MG Oral Tablet Chewable (Alum Hydroxide-Mag Trisilicate) Take by mouth as needed. Active traZODone HCl 100 MG Oral Tablet (Desyrel) Take 1 Tablet by mouth at bedtime. Active CPAP every night at bedtime. Active One-A-Day Womens 50 Plus Oral Tablet Take 1 Tablet by mouth in the morning. Active Probiotic (Lactobacillus) Oral Capsule Take 2 Capsules by mouth in the morning. Active OneTouch Verio In Vitro Strip (Glucose Blood) Use up to 4 times a day E11.9 100 Strip 11 01/22/2024 Active Potassium Chloride Shannon ER 10 MEQ Oral Tablet Extended ReleaseIndications:A cute on chronic heart failure with preserved ejection fraction (HFpEF) ([facility]) Take 1 Tablet by mouth in the morning and 1 Tablet before bedtime. 180 Tablet 3 01/22/2024 Active BD Pen Needle Short U/F 31G X 8 MMIndications:Type 2 diabetes mellitus with hemoglobin A1c goal of less than 7.0% ([facility]),Type 2 diabetes mellitus with stage 3a chronic kidney disease, with long-term current use of insulin ([facility]) Use with insulin 4 times daily 400 Each 3 01/10/2024 Active BD Insulin Syringe 25G X 1" 1 ML (Insulin Syringe-Needle U-100) Use daily with omnipod as directed DX E11.9 100 Each 5 03/14/2024 Active Curity Alcohol Swabs Pad Use as directed as needed 200 Each 5 03/14/2024 Active Clopidogrel Bisulfate 75 MG Oral Tablet (pLAVix) Take 1 Tablet by mouth in the morning. 90 Tablet 2 01/10/2024 Active Levothyroxine Sodium 75 MCG Oral Tablet (Levoxyl)Indications :Hypothyroidism TAKE 1 TAB BY MOUTH DAILY FIRST THING IN AM, AT LEAST 30 MIN PRIOR TO BREAKFAST OR OTHER MEDICATIONS 90 Tablet 2 01/10/2024 Active Aquaphor External Ointment Apply topically to affected area as needed for Dry Skin. Apply to face 420 g 01/10/2024 Active Ozempic (2 MG/DOSE) 8 MG/3ML Subcutaneous Solution Pen-injector (Semaglutide (2 MG/DOSE))Indications :weekly on fridays Inject 2 mg under the skin once a week. 9 mL 3 01/09/2024 Active Ammonium Lactate 12 % External Lotion (Lac-Hydrin) Apply to both feet once daily. 400 g 2 01/10/2024 Active Atorvastatin Calcium 40 MG Oral Tablet (Lipitor)Indications :Heart failure, systolic, due to idiopathic cardiomyopathy (HCC),S/P aortic valve replacement,HTN, goal below 140/80,Dyslipidemia, goal LDL below 70 Take 1 tablet by mouth daily to prevent heart attack/stroke, protect kidney, and cholesterol 90 Tablet 2 01/10/2024 Active Meclizine HCl 25 MG Oral Tablet (Antivert)Indication s:Muscle tension headache Take 2 Tablets by mouth 2 times a day. 360 Tablet 2 01/10/2024 Active Gabapentin 300 MG Oral Capsule (Neurontin) Take 1 Capsule by mouth in the morning and 1 Capsule at noon and 1 Capsule before bedtime. 90 Capsule 5 02/04/2024 Active Fluticasone Propionate 50 MCG/ACT Nasal Suspension (Flonase)Indications :Dizziness Administer 2 Sprays into each nostril in the morning. 16 g 3 02/07/2024 Active Magnesium Oxide -Mg Supplement 400 (240 Mg) MG Oral Tablet (Mag-Ox)Indications: HTN, goal below 130/80 One tablet by mouth daily in the morning 90 Tablet 3 03/07/2024 Active Tresiba FlexTouch 200 UNIT/ML Subcutaneous Solution Pen-injector (Insulin Degludec)Indications :Type 2 diabetes mellitus with hemoglobin A1c goal of less than 7.0% (HCC),Type 2 diabetes mellitus with stage 3a chronic kidney disease, with long-term current use of insulin ([facility]) Inject 36 Units under the skin in the morning. 6 mL 2 03/14/2024 Active Insulin Aspart 100 UNIT/ML Injection Solution (NovoLOG)Indications :Type 2 diabetes mellitus with hemoglobin A1c goal of less than 7.0% ([facility]) Use up to 50 units per day in Omnipod. 03/31/2024 Active Omnipod 5 G6 Intro (Gen 5) Kit Use as directed. Use to delivery insulin via insulin pump 1 Kit 5 04/10/2024 Active Nystatin 947987 UNIT/GM External Powder (Nystop)Indications: Candidal intertrigo APPLY TOPICALLY TO AFFECTED AREA 3 TIMES A DAY. 60 g 1 04/14/2024 Active Loperamide HCl 2 MG Oral Capsule (Imodium A-D) Take 1 Capsule by mouth 4 times a day as needed for Diarrhea. Active Dificid 200 MG Oral Tablet (Fidaxomicin)Indicat ions:C. difficile colitis Take 1 Tablet by mouth in the morning and 1 Tablet before bedtime. 28 Tablet 05/02/2024 Active Utfkvovsoq-Xbuipmc-Q affeine 50-325-40 MG Oral Capsule (Fiorinal)Indication s:Acute intractable tension-type headache Take 1 Capsule by mouth every 4 hours as needed for Headache. 30 Capsule 05/07/2024 Active Saccharomyces boulardii 250 MG Oral Capsule (Florastor) Take 1 Capsule by mouth in the morning and 1 Capsule before bedtime. 60 Capsule 05/06/2024 Active Vancomycin HCl 125 MG Oral Capsule (Vancocin) 125 mg orally 4 times daily for 2 wks, then 2 x/day x wk, then daily x 1 wk, then every other day for 8 wks 100 Capsule 05/06/2024 Active Metoprolol Tartrate 50 MG Oral Tablet (Lopressor)Indicatio ns:HTN, goal below 130/80 Take 1 Tablet by mouth in the morning and 1 Tablet before bedtime. 180 Tablet 3 05/15/2024 Active DULoxetine HCl 20 MG Oral Capsule Delayed Release Particles (Cymbalta) Take 1 Capsule by mouth in the morning. 30 Capsule 1 06/02/2024 Active documented as of this encounter (statuses as of 06/04/2024) Active Problems Problem Noted Date Diagnosed Date Recurrent Clostridium difficile diarrhea 05/01/2 024 Last Assessment & Plan: Finish dificid as ordered Probiotics ordered, but patient has not started, recommended starting today Good hand hygiene, sanitize bathroom Hypertensive kidney disease with stage 3a chronic kidney disease 11/05/2023 Last Assessment & Plan: BP stable today Continue toprol Thrombocytopenia 09/12/2023 Obesity, Class I, BMI 30.0-34.9 (see actual BMI) 07/31/2023 Type 2 diabetes mellitus wit h diabetic peripheral angiopathy without gangrene 03/01/2023 Type 2 diabetes mellitus wit h hemoglobin A1c goal of less than 8.0% 02/22/2023 Last Assessment & Plan: "RED FLAG" Diabetic symptoms: Vision Changes and Nausea / Vomiting Goal HgbA1c <7 Diabetic Complications Vascular (examples: PVD, PAD, CAD, CVA) Renal (example: CKD, Proteinuria, Dialysis) Medication Regimen Metformin Basal/Long Acting Insulin Bolus/Short Acting Insulin GLP-1 Agonist (ex: Victoza, Trulicity, Ozempic) DM Secondary Prevention Moderate-High Intensity Statin Aspirin Additional Comments Last hgba1 at goal, 7.5 (08/2023) Type 2 diabetes mellitus wit h stage [...] ARB o Moderate-High Intensity Statin o Aspirin Cystoid macular edema of right eye 09/28/2020 Coronary artery disease invo lving [place] coronary artery of [place] heart without angina pectoris 12/16/2019 Last Assessment [...] Plan: Continue Synthroid DANYELLE on CPAP 10/31/2010 Dyslipidemia 11/14/2007 Overview: Per Lipid Taxonomy. documented as of this encounter (statuses as of 06/04/2024) Resolved Problems Problem Noted Date Diagnosed Date Resolved Date Widened pulse pressure 06/19/202307/31 COVID-19 virus infection 06/19/202303/2023 Hyperglycemia due to diabetes mellitus 06/15/2023 07/31/2023 Splenic infarct 06/14/2023 02/04/2024 C. difficile colitis 06/14/2023 023 Pleural effusion 06/14/2023 07/31/2023 Hypokalemia 06/14/2023 07/31/2023 Hypophosphatemia 06/14/2023 07/31/2023 Hyponatremia 06/14/2023 07/31/2023 Encephalopathy acute 06/13/2023 023 Hypocalcemia 06/13/2023 07/31/2023 Schizoaffective disorder 06/13/202303/2023 Hypothyroidism 06/13/2023 07/31/2023 Pneumoperitoneum 06/06/2023 07/31/2023 Liver cirrhosis secondary to nonalcoholic steatohepatitis (LEYVA) 03/16/2023 04/18/2023 Last Assessment & Plan: Compliant with lactulose Mood disorder 03/01/2023 02/04/2024 Last Assessment & Plan: Stable today Following with psych continue trazodone, recently added cymbalta No longer on lyrica or buspar Disease of pancreas, unspecified 03/01/2023 04/18/2023 BMI [...] Subconjunctival hemorrhage of right eye 04/13/2021 11/09/2021 Chronic kidney disease, stage 3a 10/04/2020 01/23/2024 Overview: Per CKD protocol Age-related nuclear cataract of right eye 09/16/2020 [...] 12/21/2016 Diabetes mellitus 01/05/2014 12/21/2016 LEYVA RESEARCH OTHER*[id number] 01/05/2014 12/21/2016 Axillary pain 11/03/2013 12/21/2016 Obesity, [...] cath 09/201008/26/2011 12/21/2016 FOLLOWING SURGERY, UNSPECIFI ED ([facility] 08/25/2011) 08/26/2011 12/21/2016 ADVANCE [...] Medical Record [facility] V710 Clinical Trial*[id number] 12/22/2010 04/14/2011 S/P aortic valve replacement 12/01/2010 08/26/2011 S/P AORTIC VALVE REPLACEMENT - #25 pericardial Mc valve 11/01/2010 06/28/2018 Overview: Aortic valve replacement with #25 pericardial Mc valve, model [id number], serial number [id number] (Dr. Walker) [facility] V710 Clinical Trial*[id number] 10/18/2010 11/21/2010 Type 2 diabetes mellitus wit h hemoglobin A1c goal of less than 7.0% 09/02/2010 02/04/2024 Overview: ICD-10 update of inactive term Last [...] 8.2 --metformin 850mg BID --ozemipic 1mg weekly Body mass index (BMI) of 40.0-44.9 in [...] as of this encounter (statuses as of 06/04/2024) Immunizations Name Administration Dates Next Due COVID-19 mRNA, LNP-s, No Pre serve, 2-Dose Series (Moderna) 10/25/2021,02/16/2021,01/18/2021 HEP A - Hepatitis A (Adult > 18 yrs) 06/07/2018, 12/05/2017 Hepatitis B, 20+ yrs 06/07/2018,01/08/20 18,12/05/2017,06/15,10/27/2013,09/12/2013 Pneumococcal Conjugate Vacci ne, 20-valent ([id number]) 06/22/2023 Pneumococcal Polysaccharide PPV23 (Pneumovax) 01/02/2008 Seasonal Influenza, PF, 6 M & above, IM , (FluLaval or Fluzone) 06/22/2023,05/25/2021,07/14/2020 Seasonal Influenza, QUAD, wi th Preserv, 6 mons & Above, 0.5 mL, IM 05/02/2018 Seasonal Influenza, Quadriva lent Hd (Fluzone Hd) 06/29/2022 Seasonal Influenza, Quadriva lent, No Preserve, IM 05/28/2019,05/02/2018,06/24/2017 Seasonal Influenza, Trivalen t, (IIV3), with Preserv, (Fluzone) 11/26/2016,06/15/2014,09/12/2013,09/30,07/17/2011,08/17/2010,09/21/2009 ,07/18/2008 TDAP (age 10 and older)(Boostrix) 06/28/2018 TDAP, Age 7 and older, IM (Adacel) 06/09/2008 Zoster Vaccine Recombinant (Shingrix) ,11/06/2019,08/22/2019,07/24 documented as of this encounter Social History Tobacco Use Types Packs/Day Years Used Date Smoking Tobacco: Never Smokeless Tobacco: Never Alcohol Use Standard Drinks/Week Comments No 0 (1 standard drink = 0.6 oz pur e alcohol) PHQ-2 Answer Date Recorded PHQ Adult Total Score 2 04/08/2024 Hunger Vital Sign Answer Date Recorded Within the past 12 months, y ou worried that your food would run out before you got the money to buy more. Never true 04/08/20 24 Within the past 12 months, t he food you bought just didn't last and you didn't have money to get more. Never true 04/08/2024 Childcare Answer Date Recorded Do you feel overwhelmed with taking care of a child, family member or friend? No 04/08/2024 Does your family need help f inding childcare? (Household - for ages 0-17 years) Not on file 04/08/2024 Clothing Answer Date Recorded Have you been unable to get clothing when it was really needed? No 04/08/2024 Is your family able to get c lothes or diapers when needed? (Household - for ages 0-17 years) Not on file 04/08/2024 Personal Safety Answer Date Recorded Do you feel unsafe or have concerns for your saf ety? No 04/08/2024 Do you have concerns for you r family's safety? (Household - for ages 0-17 years) Not on file 04/08/2024 Utilities Answer Date Recorded Do you have trouble paying y our heating, water, or electric bill? No 04/08/2024 Is your family able to pay t he heat, water, or electric bill? (Household - for ages 0-17 years) Not on file 04/08/2024 Does your family have access to good internet? (Household - for ages 0-17 years) Not on file 04/08/2024 Employment Status Answer Date Recorded Are you unemployed or without regular income? No 04/08/2024 Does the household have a re gular source of income? (Household - for ages 0-17 years) Not on file 04/08/2024 Social Connections Answer Date Recorded How often do you feel lonely or isolated from th ose around you? Never 04/08/2024 Financial Resource Strain Answer Date R ecorded Do you have any trouble payi ng for your medications, or do you think you might in the future? No 04/08/2024 Does your family have troubl e paying for medicine? (Household - for ages 0-17 years) Not on file 04/08/2024 Transportation Needs Answer Date Record ed READ ONLY Do you have troubl e getting a ride to medical visits or work? Never True 04/08/2024 Does your family have a hard time getting a ride to doctors visits? (Household - for ages 0-17 years) Not on file 04/08/2024 Has lack of transportation k ept you from medical appointments, meetings, work, or from getting things needed for daily living? Check all that apply. No 04/08/2024 Do you (or your family) have trouble finding or paying for a ride (transportation)? (Household - for ages 0-17 years) Not on file 04/08/2024 Housing Stability Answer Date Recorded Do you currently live in a s helter or have no steady place to sleep at night? No 04/08/2024 READ ONLY Do you think you a re at risk of becoming homeless? No 04/08/2024 Does your family worry about paying for your home or becoming homeless? (Household - for ages 0-17 years) Not on file 0 04/08/2024 Are you homeless or worried that you might be in the future? No 04/08/2024 Are you (or your family) corrie eless or worried that you might be in the future? (Household - for ages 0-17 years) Not on file Food Insecurity Answer Date Recorded Do you need food for this week? No 04/08/2024 Are you able to get enough f ood for your family? (Household - for ages 0-17 years) Not on file 04/08/2024 Does your family need food t his week? (Household - for ages 0-17 years) Not on file 04/08/2024 Do you always have enough fo od for your family? (Household - for ages 0-17 years) Not on file 04/08/2024 Education Answer Date Recorded What is the highest level of school you have completed or the highest degree you have received? High school graduate 12/11/2023 Sex and Gender Information Value Date Recorded [...] encounter Miscellaneous Notes * Telephone Encounter - Laya Garcia OSA - 06/04/2024 9:56 AM EDT appt scheduled with daughter * Telephone Encounter - Gayle Duncan LPN - 06/03/2024 6:33 PM EDT Called and spoke with pts daughter who states that pt has worsening diarrhea and some vomiting, denies fever. Please assist pt with appt first available, did explain to pts daughter that PCP may not have any opening and all the providers work as a team. * Telephone Encounter - Arina Everett OSA - 06/03/2024 12:38 PM EDT Her nurse Jennifer is calling for the patient to be seen by Dr. Rausch, an appointment was offered for tomorrow with the IRRIGATION ENGINEER but the nurse declined. She would like for someone to call back the patient and get her scheduled with her pcp. documented in this encounter Plan of Treatment Upcoming Encounters Date Type Department Care Team (Late st Contact Info) Description 06/05/2024 9:00 AM EDT Office Visit [address] [place] [address] Dolores Reese CRNP [address] [place] [address] 06/11/2024 2:30 PM EDT Home Visit [facility], [facility] [address] [place] [address] Zurdo Christina, PRABHA [address] [place] [address] 06/19/2024 9:40 AM EDT Office Visit Pharmacy, [facility] [address] [facility] [place] [address] Pharmacist1, [facility] [address] [facility] [place] [address] 08/12/2024 9:20 AM EST Office [facility] [place] [address] Gregory Rausch MD [address] [place] [address] 11/03/2024 11:00 AM EST Office Visit Sleep Disorders [facility] [address] [facility] [place] [id number] Christina Birch DO [address] [place] [address] 11/04/2024 9:30 AM EST Office Visit Gastroenterology, [facility] [address] [facility] [place] [address] Tia Taylor CRNP [address] [place] [address] 11/27/2024 9:40 AM EST Office Visit Nephrology, [facility] [address] [facility] [place] [address] Fidelina Baumann MD [address] [facility] [place] [address] Scheduled Procedures Name Priority Associated Diagnoses Date/Ti me COLONOSCOPY FLEXIBLE PROXIMAL DIAGNOSTIC Recall History of colon polyps ESOPHAGOGASTRODUODENOSCOPY ( EGD), FLEXIBLE, TRANSORAL, DIAGNOSTIC Recall Cirrhosis (HCC) COLONOSCOPY FLEXIBLE PROXIMAL DIAGNOSTIC Recall Personal history of colonic polyps Health Maintenance Due Date Last Done Comments HIV Screening 1973 Cologuard 12/18/2003 Fecal Occult Blood Test 12/18/2003 Diabetic Foot Exam 2021 2020, 0 12/05/2018, 12/05/2017, Additional history exists DXA Scan 12/18/2023 01/12/2009 COVID-19 Vaccine ( season) 2024 10/25/2021, 02/16/2021, 01/18/2021 Influenza Vaccine (FLU shot) (#1) 2024 06/22/2023, 06/29/2022, 05/25/2021, Additional history exists CKD PHOS USE SMARTSET 86185 06/18/202405/26, 06/16/2023, 06/15/2023, Additional history exists HbA1c 08/01/2024 01/30/2024, 08/25, 07/31/2023, Additional history exists Diabetic Eye Exam 09/13/2024 09/13/2023, , 09/13/2023, Additional history exists B-12 09/18/2024 09/18/2023, 08/24, 2020, Additional history exists GFR 11/01/2024 05/01/2024, 12/23, 10/15/2023, Additional history exists Albumin/Creatinine Ratio 01/07/2025 024, 03/09/2023, 12/22/2022, Additional history exists CKD HGB USE SMARTSET 61951 01/07/202501/07, 01/08/2024, 10/15/2023, Additional history exists TSH 01/07/2025 01/08/2024, 09/25, 06/06/2023, Additional history exists Colonoscopy 06/27/2026 06/27/2023, 08/25, 09/13/2022, Additional history exists Colorectal Cancer Screening 06/27/2026 Sigmoidoscopy 06/08/2028 06/08/2023 DTap/Tdap Vaccines (3 - Td or Tdap) 06/28/2028 06/28/2018, 06/09/2008 Hepatitis C Screening Completed 03/29/2017 Hepatitis B Vaccine Completed 06/07/2018, 01/07/2018, 12/05/2017, Additional history exists Zoster Vaccines Completed 11/29/2019, 10/25, 08/22/2019, Additional history exists Pneumococcal Vaccine: 65+ Years Completed 06/22/2023, 01/02/2008 HPV (Gardasil) Vaccine Aged Out No lo nger eligible based on patient's age to complete this topic MENINGOCOCCAL (MENACTRA/MENVEO) Aged Out No longer eligible based on patient's age to complete this topic documented as of this encounter Medical Devices Implanted Type Area Assistant [employer] Device Identifier Shelf Expiration Date Model / Serial / Lot Cath Roselia Single Lumen - [id number] Implanted:Qty : 1 on 03/12/2008 at OR [facility] Left: Chest [facility] *DO NOT USE* 07/25/2012 21-4053-24 / / [id number] Sut Steel 6 M654g - [id number] Implanted:Qty : 1 on 11/01/2010 at OR [facility] N/A: Chest DO NOT USE M654G / / Sut Steel 6 M654g - [id number] Implanted:Qty : 1 on 11/01/2010 at OR [facility] N/A: Chest DO NOT USE M654G / / Valve Tarsha Aortic [id number] - [id number] Implanted:Qty : 1 on 11/01/2010 at OR [facility] N/A: Heart [employer] DANIEL 05/20/2012 [id number] / / [id number] Description:[email or web address] Mesh Soft [id number] - [id number] Implanted:Qty : 1 on 10/10/2019 by Gigi Hendrickson MD at OR [facility] N/A: Abdomen CR BARD : DAVOL [id number] 05/21/2024 [id number] / / [id number] Lens 22.5 Sn60wf - [id number] - [id number] Implanted:Qty : 1 on 09/15/2020 by Cece Roland MD at OR [facility] Right: Eye IVA : SURGICAL [id number] 05/13/2025 SN60 WF.225 / [id number] / [id number] Lens 21.5 Sn60wf - [id number] - [id number] Implanted:Qty : 1 on 12/19/2023 by Ramsey Burnett DO at OR [facility] Left: Eye IVA : SURGICAL 12/03/2024 SN60WF.2 15 / [id number] / documented as of this encounter Advance Directives * Full Code (Latest Code Status on File) Date Activated Date Inactivated Comments 12/19/2023 12:28 PM 12/19/2023 7:20 PM Question Answer Comments Discussion of Advance Direct briana occurred with: Not Discussed due to patient's condition * Full Code Date Activated Date Inactivated Comments 06/06/2023 5:33 PM 06/22/2023 4:15 PM This order r eflects the patients wishes and were consensually agreed upon. Question Answer Comments Discussion of Advance Direct briana occurred with: Not Discussed due to patient's condition * Full Code Date Activated Date Inactivated Comments 10/10/2019 6:13 PM 10/17/2019 1:58 PM This order r eflects the patients wishes and were consensually agreed upon. Question Answer Comments Discussion of Advance Directives occurred with: Not Discussed * Full Code Date Activated Date Inactivated Comments 10/10/2019 5:53 PM 10/10/2019 6:13 PM Question Answer Comments Discussion of Advance Directives occurred with: Not Discussed Does the patient have a Living Will? No Does the patient have Health Care Power of Attor azucena? No * Full Code Date Activated Date Inactivated Comments 10/10/2019 8:40 AM 10/10/2019 5:53 PM This order r eflects the patients wishes and were consensually agreed upon. Healthcare Agents on File Name Relationship Healthcare Agent Relationship Communication Gigi Rose Adult Child Health Care Repr esentative (appointed verbally by patient or by statute hierarchy) Jovita Yamile Adult Child Health Keyboarding Teacher resentative (appointed verbally by patient or by statute hierarchy) Care Teams Dehydrator Relationship Specialty Start Date End Date Gregory Rausch MD [address] [place] [address] PCP - General Family Medicine 02/12/20 documented as of this encounter
--- OUTSIDE RECORDS SUMMARY | 2024-06-05 14:36 | External Medical Summary | Summary of Care ---
Author Name Unknown Organization [facility] Address [address] [place] [address] Phone [phone] Care Team Providers Care Credit Historian Name Role Phone Gregory Rausch MD Primary Care Provider [phone] Reason for Visit * Reason Onset Date Comments Medication Refill 05/30/2024 Encounter Details Date Type Department Care Team (Late st Contact Info) Description 05/30/2024 Refill Psychiatry [facility] [address] [place] [address] Josh Nicholson MD [address] [place] [address] Allergies Active Allergy Reactions Criticality Noted Date Comments Adhesive Tape 07/02/2017 Can tolerate band-aids Glycerin Other (Please comment) 03/12/2008 Topical agents with glycein-burning & itching Lactose 12/09/2014 Dairy - gas Lisinopril Cough 01/21/2010 Monosodium Glutamate Edema Other 03/12/2008 Hands and feet Penicillins Rash 11/14/2007 documented as of this encounter (statuses as of 06/02/2024) Medications Medication Sig Dispensed Refills Start Date End Date Status aspirin enteric coated 81 MG TBECIndications:Aor tic valve disorder Take 1 Tab by mouth daily. 90 Tab 11 9 Active AZO Cranberry 250-30 MG Oral Tablet Take 1 Tablet by mouth in the morning and 1 Tablet before bedtime. Active BD Glucose 5 GM Oral Tablet Chewable (Glucose)Indication s:DM type 2, not at goal ([facility]) 3 every 15 minutes until glucose is > 100 mg/dL for hypoglycemia E11.9 100 Tab 3 1 Active OneTouch Verio w/Device Kit Use up to 4 times a day E11.9 1 Kit 2 Active OneTouch Delica Lancets 33G TEST 4 TIMES DAILY DIRECTED, E11.9 400 Each 3 2 Active Melatonin 10 MG Oral CapsuleIndications: sleep [...] times a day E11.9 100 Strip 11 4 Active Potassium Chloride Shannon ER 10 MEQ Oral Tablet Extended ReleaseIndications: Acute on chronic heart failure with preserved ejection fraction (HFpEF) ([facility]) Take 1 Tablet by mouth in the morning and 1 Tablet before bedtime. 180 Tablet 3 4 Active BD Pen Needle Short U/F 31G X 8 MMIndications:Type 2 diabetes mellitus with hemoglobin A1c goal of less than 7.0% ([facility]),Type 2 diabetes mellitus with stage 3a chronic kidney disease, with long-term current use of insulin ([facility]) Use with insulin 4 times daily 400 Each 3 4 Active BD Insulin Syringe 25G X 1" 1 ML (Insulin Syringe-Needle U-100) Use daily with omnipod as directed DX E11.9 100 Each 5 4 Active Curity Alcohol Swabs Pad Use as directed as needed 200 Each 5 4 Active Clopidogrel Bisulfate 75 MG Oral Tablet (pLAVix) Take 1 Tablet by mouth in the morning. 90 Tablet 2 4 Active Levothyroxine Sodium 75 MCG Oral Tablet (Levoxyl)Indication s:Hypothyroidism TAKE 1 TAB BY MOUTH DAILY FIRST THING IN AM, AT LEAST 30 MIN PRIOR TO BREAKFAST OR OTHER MEDICATIONS 90 Tablet 2 4 Active Aquaphor External Ointment Apply topically to affected area as needed for Dry Skin. Apply to face 420 g 4 Active Ozempic (2 MG/DOSE) 8 MG/3ML Subcutaneous Solution Pen-injector (Semaglutide (2 MG/DOSE))Indication s:weekly on fridays Inject 2 mg under the skin once a week. 9 mL 3 4 Active Ammonium Lactate 12 % External Lotion (Lac-Hydrin) Apply to both feet once daily. 400 g 2 4 Active Atorvastatin Calcium 40 MG Oral Tablet (Lipitor)Indication s:Heart failure, systolic, due to idiopathic cardiomyopathy (HCC),S/P aortic valve replacement,HTN, goal below 140/80,Dyslipidemia , goal LDL below 70 Take 1 tablet by mouth daily to prevent heart attack/stroke, protect kidney, and cholesterol 90 Tablet 2 4 Active Meclizine HCl 25 MG Oral Tablet (Antivert)Indicatio ns:Muscle tension headache Take 2 Tablets by mouth 2 times a day. 360 Tablet 2 4 Active Gabapentin 300 MG Oral Capsule (Neurontin) Take 1 Capsule by mouth in the morning and 1 Capsule at noon and 1 Capsule before bedtime. 90 Capsule 5 4 Active Fluticasone Propionate 50 MCG/ACT Nasal Suspension (Flonase)Indication s:Dizziness Administer 2 Sprays into each nostril in the morning. 16 g 3 4 Active Magnesium Oxide -Mg Supplement 400 (240 Mg) MG Oral Tablet (Mag-Ox)Indications :HTN, goal below 130/80 One tablet by mouth daily in the morning 90 Tablet 3 4 Active Tresiba FlexTouch 200 UNIT/ML Subcutaneous Solution Pen-injector (Insulin Degludec)Indication s:Type 2 diabetes mellitus with hemoglobin A1c goal of less than 7.0% (HCC),Type 2 diabetes mellitus with stage 3a chronic kidney disease, with long-term current use of insulin ([facility]) Inject 36 Units under the skin in the morning. 6 mL 2 4 Active Insulin Aspart 100 UNIT/ML Injection Solution (NovoLOG)Indication s:Type 2 diabetes mellitus with hemoglobin A1c goal of less than 7.0% ([facility]) Use up to 50 units per day in Omnipod. 4 Active Omnipod 5 G6 Intro (Gen 5) Kit Use as directed. Use to delivery insulin via insulin pump 1 Kit 5 4 Active Nystatin 985342 UNIT/GM External Powder (Nystop)Indications :Candidal intertrigo APPLY TOPICALLY TO AFFECTED AREA 3 TIMES A DAY. 60 g 1 4 Active Loperamide HCl 2 MG Oral Capsule (Imodium A-D) Take 1 Capsule by mouth 4 times a day as needed for Diarrhea. Active Dificid 200 MG Oral Tablet (Fidaxomicin)Indica tions:C. difficile colitis Take 1 Tablet by mouth in the morning and 1 Tablet before bedtime. 28 Tablet 4 Active Butalbital-Aspirin- Caffeine 50-325-40 MG Oral Capsule (Fiorinal)Indicatio ns:Acute intractable tension-type headache Take 1 Capsule by mouth every 4 hours as needed for Headache. 30 Capsule 4 Active Saccharomyces boulardii 250 MG Oral Capsule (Florastor) Take 1 Capsule by mouth in the morning and 1 Capsule before bedtime. 60 Capsule 4 Active Vancomycin HCl 125 MG Oral Capsule (Vancocin) 125 mg orally 4 times daily for 2 wks, then 2 x/day x wk, then daily x 1 wk, then every other day for 8 wks 100 Capsule 4 Active Metoprolol Tartrate 50 MG Oral Tablet (Lopressor)Indicati ons:HTN, goal below 130/80 Take 1 Tablet by mouth in the morning and 1 Tablet before bedtime. 180 Tablet 3 4 Active DULoxetine HCl 20 MG Oral Capsule Delayed Release Particles (Cymbalta) Take 1 Capsule by mouth in the morning. 30 Capsule 1 4 Active DULoxetine HCl 20 MG Oral Capsule Delayed Release Particles (Cymbalta) Take 1 Capsule by mouth in the morning. 30 Capsule 5 4 05/30/20 24 Discontinu ed(Refill) documented as of this encounter (statuses as of 06/02/2024) Active Problems Problem Noted Date Diagnosed Date Recurrent Clostridium difficile diarrhea 024 Last Assessment & Plan: Finish dificid [...] eye 09/28/2020 Coronary artery disease invo lving kenaitze coronary artery of kenaitze heart without angina pectoris 12/16/2019 Last Assessment [...] as of this encounter (statuses as of 06/02/2024) Resolved Problems Problem Noted Date Diagnosed Date [...] 12/21/2016 Diabetes mellitus 01/05/2014 12/21/2016 LEYVA RESEARCH OTHER*[id number] 01/05/2014 12/21/2016 Axillary pain 11/03/2013 12/21/2016 Obesity, [...] cath 09/201008/26/2011 12/21/2016 FOLLOWING SURGERY, UNSPECIFI ED ([facility] BSO 08/25/2011) 08/26/2011 12/21/2016 ADVANCE DIRECTIVE INFORMATION 04/17/2011 12/21/2016 Overview: Yes, Patient instructed to provide copy of advance directive for provider to review and to be scanned into Electronic Medical Record ADVANCE DIRECTIVE INFORMATION 03/01/2011 12/21/2016 Overview: Yes, Patient instructed to provide copy of advance directive for provider to review and to be scanned into Electronic Medical Record [facility] V710 Clinical Trial*[id number] 12/22/2010 04/14/2011 S/P aortic valve replacement 12/01/2010 08/26/2011 S/P AORTIC VALVE REPLACEMENT - #25 pericardial Mc valve 11/01/2010 06/28/2018 Overview: Aortic valve replacement with #25 pericardial Mc valve, model 2800TFX, serial number [id number] (Dr. Walker) [facility] V710 Clinical Trial*[id number] 10/18/2010 11/21/2010 Type 2 diabetes mellitus wit [...] as of this encounter (statuses as of 06/02/2024) Immunizations Name Administration Dates Next Due COVID-19 mRNA, LNP-s, No Pre serve, 2-Dose Series (Moderna) 10/25/2021,02/16/2021,01/18/2021 HEP A - Hepatitis A (Adult > 18 yrs) 06/07/2018, 12/05/2017 Hepatitis B, 20+ yrs 06/07/2018,01/08/20 18,12/05/2017,06/15,10/27/2013,09/12/2013 Pneumococcal Conjugate Vacci ne, 20-valent (Ptybmii21) 06/22/2023 Pneumococcal Polysaccharide PPV23 (Pneumovax) 01/02/2008 Seasonal [...] 04/08/2024 Does the household have a re lar source of income? (Household - for ages [...] encounter Miscellaneous Notes * Telephone Encounter - Josh Nicholson MD - 06/02/2024 1:04 PM EDTSigned Prescriptions: Disp Refills DULoxetine HCl 20 MG Oral Capsule Delayed *30 Cap*1 Sig: Take 1 Capsule by mouth in the morning. Authorizing Provider: JOSH NICHOLSON * Telephone Encounter - Josh Nicholson MD - 06/02/2024 1:04 PM EDT In order to minimize risk of relapse will provide limited supply of medication until patient is able to establish longitudinal psychiatric care * Telephone Encounter - Cindi Nowak MED ASSIST - 05/30/2024 1:40 PM EDT Pharmacy requesting refill on Cymbalta. Medication was last filled on 12/12/23 with 5 refills. Patient last seen on 12/12/23 with return appointment scheduled for Needs to Schedule Appointment. Patienthad 0 cancelled appointments and 0 NO SHOW appointments. documented in this encounter Plan of Treatment Upcoming Encounters Date Type Department Care Team (Late st Contact Info) Description 06/11/2024 2:30 PM EDT [facility] Visit [facility], [facility] [address] [address] Zurdo Christina, PRABHA [address] [address] 06/19/2024 9:40 AM EDT Office Visit Pharmacy, [facility] [address] [place] [address] [address], [facility] [address] [facility] [place] [address] 08/12/2024 9:20 AM EST Office Visit Family Practice [facility] [address] [address] Gregory Rausch MD [address] [place] [address] 11/03/2024 11:00 AM EST Office Visit Sleep Disorders Ctr [facility] [address] [phone] Christina Birch DO [address] [place] [address] 11/04/2024 9:30 AM EST Office Visit Gastroenterology, [facility] [address] [address] Tia Taylor CRNP [address] [address] 11/27/2024 9:40 AM EST Office Visit Nephrology, [facility] [address] [place] [address] Fidelina Baumann MD [address] [place] [address] Scheduled Procedures Name Priority Associated Diagnoses Date/Ti [...] Additional history exists CKD PHOS USE SMARTSET 88176 06/18/202405/26, 06/16/2023, 06/15/2023, Additional history exists HbA1c 08/01/2024 01/30/2024, 08/25, 07/31/2023, Additional history exists Diabetic Eye Exam 09/13/2024 09/13/2023, , 09/13/2023, Additional history exists B-12 09/18/2024 09/18/2023, 08/24, 2020, Additional history exists GFR 11/01/2024 05/01/2024, 12/23, 10/15/2023, Additional history exists Albumin/Creatinine Ratio 01/07/2025 024, 03/09/2023, 12/22/2022, Additional history exists CKD HGB USE SMARTSET 52233 01/07/202501/07, 01/08/2024, 10/15/2023, Additional history exists TSH [...] this encounter Medical Devices Implanted Type Area Vp Outcomes Device Identifier Shelf Expiration Date Model / Serial / Lot Cath Roselia Single Lumen - [id number] Implanted:Qty : 1 on 03/12/2008 at OR [facility] Left: Chest [facility] *DO NOT USE* 07/25/2012 21-4053-24 / / [id number] Sut Steel 6 M654g - [id number] Implanted:Qty : 1 on 11/01/2010 at OR [facility] N/A: Chest DO NOT USE M654G / / Sut Steel 6 M654g - [id number] Implanted:Qty : 1 on 11/01/2010 at OR [facility] N/A: Chest DO NOT USE M654G / / Valve Tarsha Aortic [id number] - [id number] Implanted:Qty : 1 on 11/01/2010 at OR [facility] N/A: Heart MC LIFESCIRypos DANIEL 05/20/2012 2800TFX-25 / / [id number] Description:[email or web address] Mesh Soft [id number] - [id number] Implanted:Qty : 1 on 10/10/2019 by Gigi Hendrickson MD at [place] [facility] N/A: Abdomen CR BARD : DAVOL [id number] 05/21/2024 [id number] / / [id number] Lens 22.5 Sn60wf - [id number] - [id number] Implanted:Qty : 1 on 09/15/2020 by Cece Roland MD at [facility] Right: Eye IVA : SURGICAL [id number] 05/13/2025 SN60 WF.225 / [id number] / [id number] Lens 21.5 Sn60wf - [id number] - [id number] Implanted:Qty : 1 on 12/19/2023 by Ramsey Burnett DO at OR [facility] Left: Eye IVA : SURGICAL 12/03/2024 SN60WF.2 15 / [id number] / documented as of this encounter Additional Health Concerns Infection Onset Date Last Indicated Resolved Time C. difficile 05/01/2024 05/01/2024 05/31/2024 12:1 9 AM EDT documented as of this encounter Advance Directives [...] by patient or by statute hierarchy) Jovita Ovalle Adult Child Health Environmental Sustainability Manager resentative (appointed verbally by patient or by statute hierarchy) [email or web address] Care [email or web address] Credit Historian Relationship Specialty Start Date End Date Gregory Rausch MD [address] [address] PCP - General Family Medicine 02/12/20 documented as of this encounter
--- OUTSIDE RECORDS SUMMARY | 2024-06-05 14:37 | External Medical Summary | Summary of Care ---
Author Name Unknown Organization [facility] Address [address] [place] [address] Phone [phone] Care Team Providers Care Ssis Ssrs Developer Name Role Phone Gregory Rausch MD Primary Care Provider [phone] Reason for Visit * Reason Onset Date Comments Remote Patient Monitoring Alert 05/22/2024 Encounter Details Date Type Department Care Team (Late st Contact Info) Description 05/22/2024 Home Monitoring Care Coordination [address] [place] [address] Lexy Powell LPN HTN, goal below 140/90*; HTN, goal below 130/80 Allergies Active Allergy Reactions Criticality Noted Date Comments Adhesive Tape 07/02/2017 Can tolerate band-aids Glycerin Other (Please comment) 03/12/2008 Topical agents with glycein-burning & itching Lactose 12/09/2014 Dairy - gas Lisinopril Cough 01/21/2010 Monosodium Glutamate Edema Other 03/12/2008 Hands and feet Penicillins Rash 11/14/2007 documented as of this encounter (statuses as of 05/22/2024) Medications Medication Sig Dispensed Refills Start Date [...] (Glucose)Indications :DM type 2, not at goal ([facility]) 3 every 15 minutes until glucose is [...] 1 Tablet by mouth at bedtime. Active DULoxetine HCl 20 MG Oral Capsule Delayed Release Particles (Cymbalta) Take 1 Capsule by mouth in the morning. 30 Capsule 5 12/12/2023 Active CPAP every night at bedtime. Active [...] use of insulin ([facility]) Inject 36 Units under the skin in the morning. 6 mL 2 03/14/2024 Active Insulin Aspart 100 UNIT/ML Injection Solution (NovoLOG)Indications :Type 2 diabetes mellitus with hemoglobin A1c goal of less than 7.0% ([facility]) Use up to 50 units per day in Omnipod. 03/31/2024 Active Omnipod 5 G6 Intro (Gen 5) Kit Use as directed. Use to delivery insulin via insulin pump 1 Kit 5 04/10/2024 Active Nystatin 405509 UNIT/GM External Powder (Nystop)Indications: Candidal intertrigo APPLY [...] Tablet before bedtime. 28 Tablet 05/02/2024 Active Fkydewjokn-Hxkkeuf-P affeine 50-325-40 MG Oral Capsule (Fiorinal)Indication s:Acute [...] before bedtime. 180 Tablet 3 05/15/2024 Active documented as of this encounter (statuses as of 05/22/2024) Active Problems Problem Noted Date Diagnosed Date [...] eye 09/28/2020 Coronary artery disease invo lving lumbee coronary artery of lumbee heart without angina pectoris 12/16/2019 Last Assessment [...] as of this encounter (statuses as of 05/22/2024) Resolved Problems Problem Noted Date Diagnosed Date [...] 12/21/2016 Diabetes mellitus 01/05/2014 12/21/2016 LEYVA RESEARCH OTHER*[id number] 01/05/2014 12/21/2016 Axillary pain 11/03/2013 12/21/2016 Obesity, [...] cath 09/201008/26/2011 12/21/2016 FOLLOWING SURGERY, UNSPECIFI ED ([facility] BSO 08/25/2011) 08/26/2011 12/21/2016 ADVANCE [...] Medical Record [facility] V710 Clinical Trial*[id number] 12/22/2010 04/14/2011 S/P aortic valve replacement 12/01/2010 08/26/2011 S/P AORTIC VALVE REPLACEMENT - #25 pericardial Hernandez valve 11/01/2010 06/28/2018 Overview: Aortic valve replacement with #25 pericardial Hernandez valve, model 2800TFX, serial number [id number] (Dr. Walker) [facility] V710 Clinical Trial*[id number] 10/18/2010 11/21/2010 Type 2 diabetes mellitus wit [...] as of this encounter (statuses as of 05/22/2024) Immunizations Name Administration Dates Next Due COVID-19 mRNA, LNP-s, No Pre serve, 2-Dose Series (Moderna) 10/25/2021,02/16/2021,01/18/2021 HEP A - Hepatitis A (Adult > 18 yrs) 06/07/2018, 12/05/2017 Hepatitis B, 20+ yrs 06/07/2018,01/08/20 18,12/05/2017,06/15,10/27/2013,09/12/2013 Pneumococcal Conjugate Vacci ne, 20-valent (Wtenatz77) 06/22/2023 Pneumococcal Polysaccharide PPV23 (Pneumovax) 01/02/2008 Seasonal [...] as of this encounter Progress Notes * Lauro Self [facility] - 05/22/2024 2:58 PM EDT Patient Phone Numbers Attempted to reach out to pt regard elevated BP number recently however no answer. Currently Pt only has 1 bp reading in the past week. 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 Lauro Self, PharmD, BCACP, [facility] Clinical Pharmacist 05/22/2024, 3:00 PM * Lexy Powell LPN - 05/22/2024 1:24 PM EDT Jovita Rose [phone] Jovita Rose is currently participating in the CC365 Hypertension Management Program and had areading on 05/22/2024 of 160/86. Pt has alerted for an Average BP over 7 days >/= 140/90 . Parameters are currently set as follows: Average BP over 7 days >/= 140/90 Singular Systolic BP Reading </= 90 or >/=180 Singular Diastolic BP Reading </= 50 or >/=120 Patient is not reporting new symptoms or concerns. The patient does have all her blood pressure medications and is taking them as prescribed. Please review the recent history of home RPM readings in Epic Synopsis Flowsheets and work with your clinical staff if any additional actions or interventions are required. If you would like to customize the alert parameters and/or instructions for this patient, please let me know and we can have them changed. Thank you! Lexy Powell LPN documented in this encounter Plan of Treatment Upcoming Encounters Date Type Department Care Team (Late st Contact Info) Description 06/02/2024 9:30 AM EDT Imaging Radiology [facility] [address] [address] 06/11/2024 2:30 PM EDT [facility], [facility] [address] [address] Zurdo Christina, PRABHA [address] [address] 06/19/2024 9:40 AM EDT Office Visit Pharmacy, [facility] [address] [facility] [place] [address] Pharmacist1, [facility] [address] [facility] [place] [address] 08/12/2024 9:20 AM EST Office Visit Family Practice [facility] [address] [address] Gregory Rausch MD [address] [place] [address] 11/03/2024 11:00 AM EST Office Visit Sleep Disorders Ctr [facility] [address] [phone] Christina Birch, [address] [place] [address] 11/04/2024 9:30 AM EST Office Visit Gastroenterology, [facility] [address] [address] Tia Taylor CRNP [address] [place] [address] 11/27/2024 9:40 AM EST Office Visit Nephrology, [facility] [address] [facility] [place] [address] Fidelina Baumann MD [address] [facility] [place] [address] Scheduled Procedures Name Priority Associated Diagnoses Date/Ti [...] Vaccine ( season) 2023 10/25/2021, 02/16/2021, 01/18/2021 DXA Scan 12/18/2023 01/12/2009 Influenza Vaccine (FLU shot) (#1) 2024 06/22/2023, 06/29/2022, 05/25/2021, Additional history exists CKD PHOS USE SMARTSET 99216 06/18/202405/26, 06/16/2023, 06/15/2023, Additional history exists HbA1c 08/01/2024 01/30/2024, 08/25, 07/31/2023, Additional history exists Diabetic Eye Exam 09/13/2024 09/13/2023, , 09/13/2023, Additional history exists B-12 09/18/2024 09/18/2023, 08/24, 2020, Additional history exists GFR 11/01/2024 05/01/2024, 12/23, 10/15/2023, Additional history exists Albumin/Creatinine Ratio 01/07/2025 024, 03/09/2023, 12/22/2022, Additional history exists CKD HGB USE SMARTSET 20932 01/07/202501/07, 01/08/2024, 10/15/2023, Additional history exists TSH [...] this encounter Medical Devices Implanted Type Area Shift Supervisor Film Processing Device Identifier Shelf Expiration Date Model / Serial / Lot Cath Roselia Single Lumen - [id number] Implanted:Qty : 1 on 03/12/2008 at OR [facility] Left: Chest [facility] *DO NOT USE* 07/25/2012 21-4053-24 / / [id number] Sut Steel 6 M654g - [id number] Implanted:Qty : 1 on 11/01/2010 at OR [facility] N/A: Chest DO NOT USE M654G / / Sut Steel 6 M654g - [id number] Implanted:Qty : 1 on 11/01/2010 at OR [facility] N/A: Chest DO NOT USE M654G / / Valve Tarsha Aortic [id number] - [id number] Implanted:Qty : 1 on 11/01/2010 at OR [facility] N/A: Heart NeocraftsCIgoviral DANIEL 05/20/2012 2800TFX-25 / / [id number] Description:[email or web address] Mesh Soft [id number] - [id number] Implanted:Qty : 1 on 10/10/2019 by Gigi Hendrickson MD at OR [facility] [place] N/A: Abdomen CR BARD : DAVOL [id number] 05/21/2024 [id number] / / [id number] Lens 22.5 Sn60wf - [id number] - [id number] Implanted:Qty : 1 on 09/15/2020 by Renaldo Cook, Cece Acosta MD at OR [facility] Right: Eye IVA : SURGICAL [id number] 05/13/2025 SN60 WF.225 / [id number] / [id number] Lens 21.5 Sn60wf - [id number] - [id number] Implanted:Qty : 1 on 12/19/2023 by Ramsey Burnett DO at OR [facility] Left: Eye IVA : SURGICAL 12/03/2024 SN60WF.2 15 / [id number] / documented as of this encounter Visit Diagnoses Diagnosis HTN, goal below 140/90- Primary Unspecified essential hypertension HTN, goal below 130/80 Unspecified essential hypertension documented in this encounter Additional Health Concerns Infection Onset Date Last Indicated Resolved Time C. difficile 05/01/2024 05/01/2024 documented as of this encounter Advance Directives [...] statute hierarchy) Jovita Ovalle Adult Child Health Automobile Or Truck Rental Dispatcher resentative (appointed verbally by patient or by statute hierarchy) [email or web address] Ssis Ssrs Developer Relationship Specialty Start Date End Date Gregory Rausch MD [address] [address] PCP - General Family Medicine 02/12/20 documented as of this encounter
--- OUTSIDE RECORDS SUMMARY | 2024-06-05 14:37 | External Medical Summary | Summary of Care ---
Author Name Unknown Organization [facility] Address [address] [place] [address] Phone [phone] Care Team Providers Care Crabbing Machine Operator Name Role Phone Gregory Rausch MD Primary Care Provider [phone] Reason for Visit * Reason Onset Date Comments [facility]: Maintenance 05/21/2024 Encounter Details Date Type Department Care Team (Late st Contact Info) Description 05/21/2024 Telephone [facility], [facility] [address] [place] [address] Yolis Mejia, PERCUSSION INSTRUCTOR [address], [place] [id number] [facility]: Maintenance Allergies Active Allergy Reactions Criticality Noted Date Comments Adhesive Tape 07/02/2017 Can tolerate band-aids Glycerin Other (Please comment) 03/12/2008 Topical agents with glycein-burning & itching Lactose 12/09/2014 Dairy - gas Lisinopril Cough 01/21/2010 Monosodium Glutamate Edema Other 03/12/2008 Hands and feet Penicillins Rash 11/14/2007 documented as of this encounter (statuses as of 05/21/2024) Medications Medication Sig Dispensed Refills Start Date [...] (Glucose)Indications :DM type 2, not at goal ([facility]) 3 every 15 minutes until glucose is [...] with preserved ejection fraction (HFpEF) ([facility]) Take 1 Tablet by mouth in the morning and 1 Tablet before bedtime. 180 Tablet 3 01/22/2024 Active BD Pen Needle Short U/F 31G X 8 MMIndications:Type 2 diabetes mellitus with hemoglobin A1c goal of less than 7.0% ([facility]),Type 2 diabetes mellitus with stage 3a chronic kidney disease, with long-term current use of insulin ([facility]) Use with insulin 4 times daily 400 Each 3 01/10/2024 Active BD Insulin Syringe 25G X 1" 1 ML (Insulin Syringe-Needle U-100) Use daily with omnipod as directed DX E11.9 100 Each 03/14/2024 Active Curity Alcohol Swabs Pad Use as directed as needed 200 Each 03/14/2024 Active Clopidogrel Bisulfate 75 MG Oral [...] mouth 2 times a day. 360 Tablet 01/10/2024 Active Gabapentin 300 MG Oral Capsule (Neurontin) Take 1 Capsule by mouth in the morning and 1 Capsule at noon and 1 Capsule before bedtime. 90 Capsule 02/04/2024 Active Fluticasone Propionate 50 MCG/ACT Nasal Suspension (Flonase)Indications :Dizziness Administer 2 Sprays into each nostril in the morning. 16 g 02/07/2024 Active Magnesium Oxide -Mg Supplement 400 (240 Mg) MG Oral Tablet (Mag-Ox)Indications: HTN, goal below 130/80 One tablet by mouth daily in the morning 90 Tablet 3 03/07/2024 Active Tresiba FlexTouch 200 UNIT/ML Subcutaneous Solution Pen-injector (Insulin Degludec)Indications :Type 2 diabetes mellitus with hemoglobin A1c goal of less than 7.0% ([facility]),Type 2 diabetes mellitus with stage 3a chronic kidney disease, with long-term current use of insulin ([facility]) Inject 36 Units under the skin in the morning. 6 mL 2 03/14/2024 Active Insulin Aspart 100 UNIT/ML Injection Solution (NovoLOG)Indications :Type 2 diabetes mellitus with hemoglobin A1c goal of less than 7.0% ([facility]) Use up to 50 units per day in Omnipod. 03/31/2024 Active Omnipod 5 G6 Intro (Gen 5) Kit Use as directed. Use to delivery insulin via insulin pump 1 Kit 5 04/10/2024 Active Nystatin 978130 UNIT/GM External Powder (Nystop)Indications: Candidal intertrigo APPLY [...] Tablet before bedtime. 28 Tablet 05/02/2024 Active Dsidlugwtc-Ghamdyq-L affeine 50-325-40 MG Oral Capsule (Fiorinal)Indication s:Acute [...] as of this encounter (statuses as of 05/21/2024) Active Problems Problem Noted Date Diagnosed Date [...] eye 09/28/2020 Coronary artery disease invo lving [place] coronary artery of [place] heart without angina pectoris 12/16/2019 Last Assessment [...] as of this encounter (statuses as of 05/21/2024) Resolved Problems Problem Noted Date Diagnosed Date [...] 12/21/2016 Diabetes mellitus 01/05/2014 12/21/2016 LEYVA RESEARCH OTHER*[id number] 01/05/2014 12/21/2016 Axillary pain 11/03/2013 12/21/2016 Obesity, [...] to be scanned into Electronic Medical Record [facility] V710 Clinical Trial*[id number] 12/22/2010 04/14/2011 S/P aortic valve replacement 12/01/2010 08/26/2011 S/P AORTIC VALVE REPLACEMENT - #25 pericardial Mc valve 11/01/2010 06/28/2018 Overview: Aortic valve replacement with #25 pericardial Mc valve, model 2800TFX, serial number [id number] (Dr. Walker) [facility] V710 Clinical Trial*[id number] 10/18/2010 11/21/2010 Type 2 diabetes mellitus wit [...] as of this encounter (statuses as of 05/21/2024) Immunizations Name Administration Dates Next Due COVID-19 mRNA, LNP-s, No Pre serve, 2-Dose Series (Moderna) 10/25/2021,02/16/2021,01/18/2021 HEP A - Hepatitis A (Adult > 18 yrs) 06/07/2018, 12/05/2017 Hepatitis B, 20+ yrs 06/07/2018,01/08/20 18,12/05/2017,06/15,10/27/2013,09/12/2013 Pneumococcal Conjugate Vacci ne, 20-valent ([id number]) 06/22/2023 Pneumococcal Polysaccharide PPV23 (Pneumovax) 01/02/2008 Seasonal [...] encounter Miscellaneous Notes * Telephone Encounter - Yolis MejiaTIM - 05/21/2024 10:59 AM EDT Images from the original note were not included. [facility] Remote Patient Monitoring Able to contact patient: Trigger type: Abnormal reading(s): AMC (Advanced Monitored Caregiving): Scale: Trigger weight: 152.4 lbs; weight increased 4.4 lbs in 1 day(s) Trigger priority per AMC: high Patient takes diuretic medication: No Symptom review: Denies new/worsening symptoms Diet Reviewed: N/A Fluid Intake Reviewed: N/A Self-Management Plan Reviewed: Patient's 'Red Flags': Low blood sugars Increased SHAW Feelings of depression Risk assignment recommendation: Moderate risk findings (check as applicable): [x] Moderate trigger priority on AMC [] Confirmed tympanic equivalent temperature 100.4-101.9 F onehour post administration of antipyretic [x] Weight gain of 2.1-4.9 lbs over 1-2 days [] Confirmed new sustained resting HR greater than 105WITHOUT symptoms [] Weight gain of greater than or equal to 5 lbs in 5 days WITHOUT heart failure symptoms [] Confirmed new sustained resting HRT less than 60 WITHOUT symptoms [] Moderate heart failure symptoms [] Confirmed SBP less than 90 WITHOUT symptoms [] Moderate COPD symptoms [] Confirmed SBP greater than 170 WITHOUT symptoms [] Confirmed new SpO2 90-93% [] Confirmed DBP greater than 90 WITHOUT symptoms High risk findings (check as applicable): [] High trigger priority on AMC [] Confirmed tympanic equivalent temperature greater than or equal to 102 F on hour post administration of antipyretic [] Weight gain of greater than or equal to 5 lbs over 1-2 days [] Confirmed tympanic equivalent temperature less than 96 F [] Weight gain of greater than or equal to 5 lbs in 5 days WITH heart failure symptoms [] Confirmednew sustained resting HR greater than 105 WITH symptoms [] Severe heart failure symptoms [] Confirmed new sustained resting HR less than 60 WITH symptoms [] Severe COPD symptoms [] Confirmed SBP less than 90 WITH symptoms [] Confirmed new SpO2 less than 90% [] Confirmed SBP greater than 170 WITH symptoms [] Confirmed DBP greater than 90 WITH symptoms Additional risk selection justification: Spoke with pt denies increased SOB, - edema, - abdominal fullness. Per pt wt fluctuates. She will call [facility] with any concerns Overall risk and identified plan: Moderate risk: Route to RNCM (Registered Nurse Dredge Mechanic) and Advance Practitioner documented in this encounter Plan of Treatment Upcoming Encounters Date Type Department Care Team (Late st Contact Info) Description 06/02/2024 9:30 AM EDT Imaging Radiology [facility] [address] [address] 06/11/2024 2:30 PM EDT [facility] [place] [address] [address] Zurdo Christina RN [address] [address] 06/19/2024 9:40 AM EDT Office Visit Pharmacy, [facility] [address] [facility] [place] [address] Pharmacist1, [facility] [address] [facility] [place] [address] 08/12/2024 9:20 AM EST Office Visit Family Practice [facility] [address] [address] Gregory Rausch MD [address] [address] 11/03/2024 11:00 AM EST Office Visit Sleep Disorders Ctr [facility] [address] [place] [address] Christina Birch DO [address] [place] [address] 11/04/2024 9:30 AM EST Office Visit Gastroenterology, [facility] [place] [address] Tia Taylor CRNP [address] [place] [address] 11/27/2024 9:40 AM EST Office Visit Nephrology, [facility] [address] [facility] [place] [address] Fidelina Baumann MD [address] [facility] [place] [address] Scheduled Procedures Name Priority Associated Diagnoses Date/Ti [...] Additional history exists CKD PHOS USE SMARTSET 42622 06/18/202405/26, 06/16/2023, 06/15/2023, Additional history exists HbA1c 08/01/2024 01/30/2024, 08/25, 07/31/2023, Additional history exists Diabetic Eye Exam 09/13/2024 09/13/2023, , 09/13/2023, Additional history exists B-12 09/18/2024 09/18/2023, 08/24, 2020, Additional history exists GFR 11/01/2024 05/01/2024, 12/23, 10/15/2023, Additional history exists Albumin/Creatinine Ratio 01/07/2025 024, 03/09/2023, 12/22/2022, Additional history exists CKD HGB USE SMARTSET 81817 01/07/202501/07, 01/08/2024, 10/15/2023, Additional history exists TSH [...] this encounter Medical Devices Implanted Type Area Paving Crew Foreman Device Identifier Shelf Expiration Date Model / Serial / Lot Cath Roselia Single Lumen - [id number] Implanted:Qty : 1 on 03/12/2008 at OR [facility] Left: Chest [employer] *DO NOT USE* 07/25/2012 21-4053-24 / / [id number] Sut Steel 6 M654g - [id number] Implanted:Qty : 1 on 11/01/2010 at OR [facility] N/A: Chest DO NOT USE M654G / / Sut Steel 6 M654g - [id number] Implanted:Qty : 1 on 11/01/2010 at OR [facility] N/A: Chest DO NOT USE M654G / / Valve Tarsha Aortic [id number] - [id number] Implanted:Qty : 1 on 11/01/2010 at OR [facility] N/A: Heart [employer] DANIEL 05/20/2012 2800TFX-25 / / [id number] Description:[email or web address] Mesh Soft 18i82xu - [id number] Implanted:Qty : 1 on 10/10/2019 by Gigi Hendrickson MD at [place] [facility] N/A: Abdomen CR BARD : DAVOL [id number] 05/21/2024 [id number] / / [id number] Lens 22.5 Sn60wf - [id number] - [id number] Implanted:Qty : 1 on 09/15/2020 by Renaldo Cook, Cece Acosta MD at OR [facility] Right: Eye IVA : SURGICAL [id number] 05/13/2025 SN60 WF.225 / [id number] / [id number] Lens 21.5 Sn60wf - [id number] - [id number] Implanted:Qty : 1 on 12/19/2023 by Ramsey Burnett DO at OR [facility] Left: Eye IVA : SURGICAL 12/03/2024 SN60WF.2 15 / [id number] / documented as of this encounter [...] statute hierarchy) Jovita Ovalle Adult Child Health Shaper And Presser resentative (appointed verbally by patient or by statute hierarchy) [email or web address] Care Teams Crabbing Machine Operator Relationship Specialty Start Date End Date Gregory Rausch MD [address] [address] PCP - General Family Medicine 02/12/20 documented as of this encounter
--- OUTSIDE RECORDS SUMMARY | 2024-06-05 14:37 | External Medical Summary | Summary of Care ---
Author Name Unknown Organization [facility] Address [address] [place] [address] Phone [phone] Care Team Providers Care Shredding Floor Equipment Operator Name Role Phone Gregory Rausch MD Primary Care Provider [phone] Reason for Visit * Reason Onset Date Comments Letter Requests 02/29/2024 Encounter Details Date Type Department Care Team (Late st Contact Info) Description 02/29/2024 Telephone Family Practice [facility] [address] [place] [address] Gregory Rausch MD [address] [facility] [place] [id number] Letter Requests Allergies Active Allergy Reactions Criticality Noted Date Comments Adhesive Tape 07/02/2017 Can tolerate band-aids Glycerin Other (Please comment) 03/12/2008 Topical agents with glycein-burning & itching Lactose 12/09/2014 Dairy - gas Lisinopril Cough 01/21/2010 Monosodium Glutamate Edema Other 03/12/2008 Hands and feet Penicillins Rash 11/14/2007 documented as of this encounter (statuses as of 05/30/2024) Medications Medication Sig Dispensed Refills Start Date [...] times daily 400 Each 3 01/10/2024 Active Clopidogrel Bisulfate 75 MG Oral Tablet [...] the morning. 16 g 3 02/07/2024 Active documented as of this encounter (statuses as of 05/30/2024) Active Problems Problem Noted Date Diagnosed Date [...] eye 09/28/2020 Coronary artery disease invo lving [place] coronary artery of [place] heart without angina pectoris 12/16/2019 Last Assessment [...] as of this encounter (statuses as of 05/30/2024) Resolved Problems Problem Noted Date Diagnosed Date [...] 12/21/2016 Diabetes mellitus 01/05/2014 12/21/2016 LEYVA RESEARCH OTHER*[id number] 01/05/2014 12/21/2016 Axillary pain 11/03/2013 12/21/2016 Obesity, [...] cath 09/201008/26/2011 12/21/2016 FOLLOWING SURGERY, UNSPECIFI ED ([facility] 08/25/2011) 08/26/2011 12/21/2016 ADVANCE DIRECTIVE INFORMATION 04/17/2011 12/21/2016 Overview: Yes, Patient instructed to provide copy of advance directive for provider to review and to be scanned into Electronic Medical Record ADVANCE DIRECTIVE INFORMATION 03/01/2011 12/21/2016 Overview: Yes, Patient instructed to provide copy of advance directive for provider to review and to be scanned into Electronic Medical Record [facility] V710 Clinical Trial*[id number] 12/22/2010 04/14/2011 S/P aortic valve replacement 12/01/2010 08/26/2011 S/P AORTIC VALVE REPLACEMENT - #25 pericardial Mc valve 11/01/2010 06/28/2018 Overview: Aortic valve replacement with #25 pericardial Mc valve, model 2800TFX, serial number [id number] (Dr. Walker) [facility] V710 Clinical Trial*[id number] 10/18/2010 11/21/2010 Type 2 diabetes mellitus wit [...] as of this encounter (statuses as of 05/30/2024) Immunizations Name Administration Dates Next Due COVID-19 mRNA, LNP-s, No Pre serve, 2-Dose Series (Moderna) 10/25/2021,02/16/2021,01/18/2021 HEP A - Hepatitis A (Adult > 18 yrs) 06/07/2018, 12/05/2017 Hepatitis B, 20+ yrs 06/07/2018,01/08/20 18,12/05/2017,06/15,10/27/2013,09/12/2013 Pneumococcal Conjugate Vacci ne, 20-valent (Inukdbc74) 06/22/2023 Pneumococcal Polysaccharide PPV23 (Pneumovax) 01/02/2008 Seasonal [...] No 04/08/2024 Does the household have a [facility] livoniar source of income? (Household - for ages [...] encounter Miscellaneous Notes * Telephone Encounter - Rufina Sinha LPN - 02/29/2024 11:39 AM EDT Pt requesting ELISE-- pended letter in communication if agreeable. * Telephone Encounter - Aaliyah Peacock OSA - 02/29/2024 10:45 AM EDT Requesting a letter that her new kitten will be her emotional support animal. Please call when she can coal picker letter Letter goes to : [address] documented in this encounter Plan of Treatment Upcoming Encounters Date Type Department Care Team (Late st Contact Info) Description 06/02/2024 9:30 AM EDT Imaging Radiology [facility] [address] [address] 06/11/2024 2:30 PM EDT Home Visit [facility] [address] [address] Zurdo Christina, RN [address] [address] 06/19/2024 9:40 AM EDT Office Visit Pharmacy, [facility] [place] [address] [place] [address] Pharmacist1, [facility] [address] [place] [address] 08/12/2024 9:20 AM EST Office Visit Family Practice [facility] [address] [address] Gregory Rausch MD [address] [address] 11/03/2024 11:00 AM EST Office Visit Sleep Disorders Ctr [facility] [address] [place] [phone] Christina Birch DO [address] [place] [address] 11/04/2024 9:30 AM EST Office Visit [facility]enterology, [facility] [place] [address] Tia Taylor CRNP [address] [place] [address] 11/27/2024 9:40 AM EST Office Visit Nephrology, [facility] [address] [place] [address] Fidelina Baumann MD [address] [place] [address] Scheduled Procedures Name Priority Associated Diagnoses Date/Ti [...] Additional history exists CKD PHOS USE SMARTSET 78350 06/18/202405/26, 06/16/2023, 06/15/2023, Additional history exists HbA1c 08/01/2024 01/30/2024, 08/25, 07/31/2023, Additional history exists Diabetic Eye Exam 09/13/2024 09/13/2023, , 09/13/2023, Additional history exists B-12 09/18/2024 09/18/2023, 08/24, 2020, Additional history exists GFR 11/01/2024 05/01/2024, 12/23, 10/15/2023, Additional history exists Albumin/Creatinine Ratio 01/07/2025 024, 03/09/2023, 12/22/2022, Additional history exists CKD HGB USE SMARTSET 23856 01/07/202501/07, 01/08/2024, 10/15/2023, Additional history exists TSH [...] this encounter Medical Devices Implanted Type Area Project Technician Device Identifier Shelf Expiration Date Model / Serial / Lot Cath Roselia Single Lumen - [id number] Implanted:Qty : 1 on 03/12/2008 at OR [facility] Left: Chest [employer] *DO NOT USE* 07/25/2012 21-4053-24 / / [id number] Sut Steel 6 M654g - [id number] Implanted:Qty : 1 on 11/01/2010 at OR [facility] N/A: Chest DO NOT USE M654G / / Sut Steel 6 M654g - [id number] Implanted:Qty : 1 on 11/01/2010 at OR [facility] N/A: Chest DO NOT USE M654G / / Valve Tarsha Aortic [id number] - [id number] Implanted:Qty : 1 on 11/01/2010 at OR [facility] N/A: Heart [employer] DANIEL 05/20/2012 2800TFX-25 / / [id number] Description:[email or web address] Mesh Soft 12o44oh - [id number] Implanted:Qty : 1 on 10/10/2019 by Gigi Hendrickson MD at OR [facility] N/A: Abdomen CR BARD : DAVOL [id number] 05/21/2024 [id number] / / [id number] Lens 22.5 Sn60wf - [id number] - [id number] Implanted:Qty : 1 on 09/15/2020 by Renaldo Cook, Cece Acosta MD at [facility] Right: Eye IVA : SURGICAL [id number] 05/13/2025 SN60 WF.225 / [id number] / [id number] Lens 21.5 Sn60wf - [id number] - [id number] Implanted:Qty : 1 on 12/19/2023 by Ramsey Burnett DO at OR [facility] Left: Eye IVA : SURGICAL 12/03/2024 SN60WF.2 15 / [id number] / documented as of this encounter Additional Health Concerns Infection Onset Date Last Indicated Resolved Time Parainfluenza Virus 02/13/2024 02/13/2024 03/05/20 24 12:18 AM EDT C. difficile Rule-Out 05/01/2024 05/01/20244 5:22 PM EDT C. difficile 05/01/2024 05/01/2024 documented as of [...] statute hierarchy) Jovita Ovalle Adult Child Health Hotel Recreational Facilities Manager resentative (appointed verbally by patient or by statute hierarchy) Care Teams Shredding Floor Equipment Operator Relationship Specialty Start Date End Date Gregory Rausch MD [address] [address] PCP - General Family Medicine 02/12/20 documented as of this encounter
--- OUTSIDE RECORDS SUMMARY | 2024-06-05 14:38 | External Medical Summary | Summary of Care ---
Author Name Unknown Organization [facility] Address [address] [place] [address] Phone [phone] Care Team Providers Care Wire Mill Operator Name Role Phone Gregory Rausch MD Primary Care Provider [phone] Reason for Visit * Reason Onset Date Comments Advice 05/15/2024 Encounter Details Date Type Department Care Team (Late st Contact Info) Description 05/15/2024 Telephone Family Practice [facility] [address] [place] [address] Gregory Rausch MD [address] [place] [address] Advice Allergies Active Allergy Reactions Criticality Noted Date Comments Adhesive Tape 07/02/2017 Can tolerate band-aids Glycerin Other (Please comment) 03/12/2008 Topical agents with glycein-burning & itching Lactose 12/09/2014 Dairy - gas Lisinopril Cough 01/21/2010 Monosodium Glutamate Edema Other 03/12/2008 Hands and feet Penicillins Rash 11/14/2007 documented as of this encounter (statuses as of 05/16/2024) Medications Medication Sig Dispensed Refills Start Date [...] (Glucose)Indications :DM type 2, not at goal ([facility]) 3 every 15 minutes until glucose [...] with preserved ejection fraction (HFpEF) ([facility]) Take 1 Tablet by mouth in the morning and 1 Tablet before bedtime. 180 Tablet 3 01/22/2024 Active BD Pen Needle Short U/F 31G X 8 MMIndications:Type 2 diabetes mellitus with hemoglobin A1c goal of less than 7.0% ([facility]),Type 2 diabetes mellitus with stage 3a chronic kidney disease, with long-term current use of insulin ([facility]) Use with insulin 4 times daily [...] goal of less than 7.0% ([facility]),Type 2 diabetes mellitus with stage 3a chronic kidney disease, with long-term current use of insulin ([facility]) Inject 36 Units under the skin in the morning. 6 mL 2 03/14/2024 Active Insulin Aspart 100 UNIT/ML Injection Solution (NovoLOG)Indications :Type 2 diabetes mellitus with hemoglobin A1c goal of less than 7.0% ([facility]) Use up to 50 units per day in Omnipod. 03/31/2024 Active Omnipod 5 G6 Intro (Gen 5) Kit Use as directed. Use to delivery insulin via insulin pump 1 Kit 5 04/10/2024 Active Nystatin 745529 UNIT/GM External Powder (Nystop)Indications: Candidal intertrigo APPLY [...] Tablet before bedtime. 28 Tablet 05/02/2024 Active Tcyybrtrjq-Ohgnbmo-D affeine 50-325-40 MG Oral Capsule (Fiorinal)Indication s:Acute [...] as of this encounter (statuses as of 05/16/2024) Active Problems Problem Noted Date Diagnosed Date [...] eye 09/28/2020 Coronary artery disease invo lving [place] coronary artery of [place] heart without angina pectoris 12/16/2019 Last Assessment [...] as of this encounter (statuses as of 05/16/2024) Resolved Problems Problem Noted Date Diagnosed Date [...] 12/21/2016 Diabetes mellitus 01/05/2014 12/21/2016 LEYVA RESEARCH OTHER*[id number] 01/05/2014 12/21/2016 Axillary pain 11/03/2013 12/21/2016 Obesity, [...] cath 09/201008/26/2011 12/21/2016 FOLLOWING SURGERY, UNSPECIFI ED ([facility] 08/25/2011) 08/26/2011 12/21/2016 ADVANCE DIRECTIVE INFORMATION 04/17/2011 12/21/2016 Overview: Yes, Patient instructed to provide copy of advance directive for provider to review and to be scanned into Electronic Medical Record ADVANCE DIRECTIVE INFORMATION 03/01/2011 12/21/2016 Overview: Yes, Patient instructed to provide copy of advance directive for provider to review and to be scanned into Electronic Medical Record [facility] V710 Clinical Trial*[id number] 12/22/2010 04/14/2011 S/P aortic valve replacement 12/01/2010 08/26/2011 S/P AORTIC VALVE REPLACEMENT - #25 pericardial Mc valve 11/01/2010 06/28/2018 Overview: Aortic valve replacement with #25 pericardial Mc valve, model 2800TFX, serial number [id number] (Dr. Walker) [employer] V710 Clinical Trial*[id number] 10/18/2010 11/21/2010 Type 2 diabetes mellitus wit [...] as of this encounter (statuses as of 05/16/2024) Immunizations Name Administration Dates Next Due COVID-19 mRNA, LNP-s, No Pre serve, 2-Dose Series (Moderna) 10/25/2021,02/16/2021,01/18/2021 HEP A - Hepatitis A (Adult > 18 yrs) 06/07/2018, 12/05/2017 Hepatitis B, 20+ yrs 06/07/2018,01/08/20 18,12/05/2017,06/15,10/27/2013,09/12/2013 Pneumococcal Conjugate Vacci ne, 20-valent ([id number]) 06/22/2023 Pneumococcal Polysaccharide PPV23 (Pneumovax) 01/02/2008 Seasonal [...] No 04/08/2024 Does the household have a [facility] source of income? (Household - for ages [...] Telephone Encounter - Neeraj Matthew RPh - 05/16/2024 1:49 PM EDT Patient Phone Numbers Called and spoke to patient and her daughter. Patient has been correcting with Novolog. No meal bolus ordered for Novolog. I am adding a meal bolus and increasing Tresiba dose for now. Omnipod 5 training scheduled 06/19. Diabetes Medications: (pump initiation settings scanned in [employer]) INCREASE: Tresiba 40units once daily Ozempic 2mg every Sunday Metformin 1000mg twice daily (On Hold) START: Novolog 4 units AC plus CF 2/50 over 200 (Flextouch pen) - give before every meal) Omnipod sales representative malt liquors will start Omnipod 5 when color receiver available. Harvester Operator missing in box (wireless scrap charger was in slot where color receiver should've been.) Email sent to rep stating we tried 3 times and were unsuccessful. Rep unsuccessful in starting also - missing pieces. Explained Difference in Dexcom G6 and G7. Told her if her G6 transmitter is >3 months old it will not work. No connection to reader is error. Omnipod Insulin Pump (Controller Serial Number: need to enter when available Insulin: Novolog vial insulin Basal Rate: 0.55 units/hour Bolus: 4 units with breakfast, 4 units with lunch and 4 units with supper Bolus Calculator: on and using ICR: 18 ISF: 50 Blood Glucose Goal Limits: 70-180 Bolus Calculator: Target B Correct above: 180 Minimum B Active Insulin Time: 2 Dexcom Controller: [id number] Dexcom G6 Transmitter S/N: [id number] Neeraj Romero RP, [facility] Clinical Pharmacist [facility] 05/16/2024, 1:52 PM * Telephone Encounter - Aaliyah Welch LPN - 05/16/2024 12:22 PM EDT FYI to PCP. Sending to [facility] as patient sees them for DM management * Telephone Encounter - Niya Morfin OSA - 05/15/2024 1:12 PM EDT Sarah from [employer] stated that they will be certifying patient for 60 more days. She stated that patient is still dealing with high blood sugar today 352. She stated she is not sure if patient is following guidelines for blood sugar, they have given her education. Caller also stated that patient and patient's caregiver are having issues with dexcom meter, needing to stab patient multiple times. Please advise. documented in this encounter Plan of Treatment Upcoming Encounters Date Type Department Care Team (Late st Contact Info) Description 06/02/2024 9:30 AM EDT Imaging Radiology [facility] [address] [place] [address] 06/11/2024 2:30 PM EDT Home Visit [facility] [place], [facility] [address] [place] [address] Zurdo Christina, RN [address] [place] [address] 06/19/2024 9:40 AM EDT Office Visit Pharmacy, [facility] [place] [address] [place] [address] Pharmacist1, [facility] [address] [facility] [place] [address] 08/12/2024 9:20 AM EST Office Visit Family Practice [facility] [address] [place] [address] Gregory Rausch MD 132 [place] [address] 11/03/2024 11:00 AM EST Office Visit Sleep Disorders Ctr [facility] [address] [facility] [place] [address] Christina Birch, 132 [place] [address] 11/04/2024 9:30 AM EST Office Visit Gastroenterology, [facility] [address] [place] [address] Tia Taylor CRNP 132 [place] [address] 11/27/2024 9:40 AM EST Office Visit Nephrology, [facility] [address] [place] [address] Fidelina Baumnan MD [address] [place] [address] Scheduled Procedures Name Priority Associated Diagnoses Date/Ti [...] Additional history exists CKD PHOS USE SMARTSET 18297 06/18/202405/26, 06/16/2023, 06/15/2023, Additional history exists HbA1c 08/01/2024 01/30/2024, 08/25, 07/31/2023, Additional history exists Diabetic Eye Exam 09/13/2024 09/13/2023, , 09/13/2023, Additional history exists B-12 09/18/2024 09/18/2023, 08/24, 2020, Additional history exists GFR 11/01/2024 05/01/2024, 12/23, 10/15/2023, Additional history exists Albumin/Creatinine Ratio 01/07/2025 024, 03/09/2023, 12/22/2022, Additional history exists CKD HGB USE SMARTSET 03978 01/07/202501/07, 01/08/2024, 10/15/2023, Additional history exists TSH 01/07/2025 01/08/2024, 09/25, 06/06/2023, Additional history exists Colonoscopy 06/27/2026 06/27/2023, 08/25, 09/13/2022, Additional history exists Colorectal Cancer Screening 06/27/2026 Sigmoidoscopy 06/08/2028 06/08/2023 DTaP,Tdap,and Td Vaccines (3 - Td or [...] this encounter Medical Devices Implanted Type Area Warehouse Distribution Specialist Device Identifier Shelf Expiration Date Model / Serial / Lot Cath Roselia Single Lumen - [id number] Implanted:Qty : 1 on 03/12/2008 at [facility] Left: Chest [employer] *DO NOT USE* 07/25/2012 21-4053-24 / / [id number] Sut Steel 6 M654g - [id number] Implanted:Qty : 1 on 11/01/2010 at OR [facility] N/A: Chest DO NOT USE M654G / / Sut Steel 6 M654g - [id number] Implanted:Qty : 1 on 11/01/2010 at [facility] N/A: Chest DO NOT USE M654G / / Valve Tarsha Aortic [id number] - [id number] Implanted:Qty : 1 on 11/01/2010 at OR [facility] N/A: Heart [employer] DANIEL 05/20/2012 2800TFX-25 / / [id number] Description:[email or web address] Mesh Soft [id number] - [id number] Implanted:Qty : 1 on 10/10/2019 by Gigi Hendrickson MD [place] [facility] N/A: Abdomen CR BARD : DAVOL [id number] 05/21/2024 [id number] / / [id number] Lens 22.5 Sn60wf - [id number] - [id number] Implanted:Qty : 1 on 09/15/2020 by Cece Roland MD at [facility] Right: Eye IVA : SURGICAL [id number] 05/13/2025 SN60 WF.225 / [id number] / [id number] Lens 21.5 Sn60wf - [id number] - [id number] Implanted:Qty : 1 on 12/19/2023 by Ramsey Burnett DO at OR [facility] Left: Eye IVA : SURGICAL 12/03/2024 SN60WF.2 15 / [id number] / documented as of this encounter [...] statute hierarchy) Jovita Ovalle Adult Child Health Dry Wall Nailer resentative (appointed verbally by patient or by statute hierarchy) Care Teams Wire Mill Operator Relationship Specialty Start Date End Date Gregory Rausch MD [address] [place] [address] PCP - General Family Medicine 02/12/20 documented as of this encounter
--- OUTSIDE RECORDS SUMMARY | 2024-06-05 14:38 | External Medical Summary | Summary of Care ---
Author Name Unknown Organization [facility] Address [address] [place] [address] Phone [phone] Care Team Providers Care Quality Improvement Analyst Name Role Phone Deon Rausch MD Primary Care Provider [phone] Reason for Visit * Reason Onset Date Comments Medication Refill 05/05/2024 Encounter Details Date Type Department Care Team (Late st Contact Info) Description 05/05/2024 Refill Family Practice [facility] [address] [place] [address] Deon Rausch MD [address] [place] [address] Acute intractable tension-type headache Allergies Active Allergy Reactions Criticality Noted Date Comments Adhesive Tape 07/02/2017 Can tolerate band-aids Glycerin Other (Please comment) 03/12/2008 Topical agents with glycein-burning & itching Lactose 12/09/2014 Dairy - gas Lisinopril Cough 01/21/2010 Monosodium Glutamate Edema Other 03/12/2008 Hands and feet Penicillins Rash 11/14/2007 documented as of this encounter (statuses as of 05/07/2024) Medications Medication Sig Dispensed Refills Start Date [...] (Glucose)Indication s:DM type 2, not at goal ([facility]) 3 every 15 minutes until glucose is [...] with preserved ejection fraction (HFpEF) ([facility]) Take 1 Tablet by mouth in the morning and 1 Tablet before bedtime. 180 Tablet 3 01/22/2024 Active BD Pen Needle Short U/F 31G X 8 MMIndications:Type 2 diabetes mellitus with hemoglobin A1c goal of less than 7.0% ([facility]),Type 2 diabetes mellitus with stage 3a chronic kidney disease, with long-term current use of insulin ([facility]) Use with insulin 4 times daily 400 [...] to both feet once daily. 400 g 01/10/2024 Active Atorvastatin Calcium 40 MG Oral [...] times a day. 360 Tablet 01/10/2024 Active Metoprolol Tartrate 25 MG Oral Tablet (Lopressor) Take 1 Tablet by mouth in the morning and 1 Tablet before bedtime. 60 Tablet 01/10/2024 Active Gabapentin 300 MG Oral [...] goal of less than 7.0% ([facility]),Type 2 diabetes mellitus with stage 3a chronic kidney disease, with long-term current use of insulin ([facility]) Inject 36 Units under the skin in the morning. 6 mL 2 03/14/2024 Active Insulin Aspart 100 UNIT/ML Injection Solution (NovoLOG)Indication s:Type 2 diabetes mellitus with hemoglobin A1c goal of less than 7.0% ([facility]) Use up to 50 units per day in Omnipod. 03/31/2024 Active Omnipod 5 G6 Intro (Gen 5) Kit Use as directed. Use to delivery insulin via insulin pump 1 Kit 5 04/10/2024 Active Nystatin 025010 UNIT/GM External Powder (Nystop)Indications :Candidal intertrigo APPLY [...] Tablet before bedtime. 28 Tablet 05/02/2024 Active Butalbital-Aspirin- Caffeine 50-325-40 MG Oral Capsule (Fiorinal)Indicatio ns:Acute intractable tension-type headache Take 1 Capsule by mouth every 4 hours as needed for Headache. 30 Capsule 05/07/2024 Active Butalbital-Aspirin- Caffeine 50-325-40 MG Oral Capsule (Fiorinal)Indicatio ns:Acute intractable tension-type headache Take 1 Capsule by mouth every 4 hours as needed for Headache. 30 Capsule 04/18/2024 05/05/20 24 Discontinu ed(Refill) documented as of this encounter (statuses as of 05/07/2024) Active Problems Problem Noted Date Diagnosed Date [...] eye 09/28/2020 Coronary artery disease invo lving [place] coronary artery of [place] heart without angina pectoris 12/16/2019 Last Assessment [...] as of this encounter (statuses as of 05/07/2024) Resolved Problems Problem Noted Date Diagnosed Date [...] 12/21/2016 Diabetes mellitus 01/05/2014 12/21/2016 LEYVA RESEARCH OTHER*[id number] 01/05/2014 12/21/2016 Axillary pain 11/03/2013 12/21/2016 Obesity, [...] Record [facility] V710 Clinical Trial*[id number] 12/22/2010 04/14/2011 S/P aortic valve replacement 12/01/2010 08/26/2011 S/P AORTIC VALVE REPLACEMENT - #25 pericardial Mc valve 11/01/2010 06/28/2018 Overview: Aortic valve replacement with #25 pericardial Mc valve, model 2800TFX, serial number [id number] (Dr. Walker) [facility] V710 Clinical Trial*[id number] 10/18/2010 11/21/2010 Type 2 diabetes mellitus wit [...] of inactive term HTN, GOAL BELOW 130/80 10/21/2009 08/23 /2012 Overview: Per HTN Taxonomy. Dyslipidemia, goal LDL [...] as of this encounter (statuses as of 05/07/2024) Immunizations Name Administration Dates Next Due COVID-19 mRNA, LNP-s, No Pre serve, 2-Dose Series (Moderna) 10/25/2021,02/16/2021,01/18/2021 HEP A - Hepatitis A (Adult > 18 yrs) 06/07/2018, 12/05/2017 Hepatitis B, 20+ yrs 06/07/2018,01/08/20 18,12/05/2017,06/15,10/27/2013,09/12/2013 Pneumococcal Conjugate Vacci ne, 20-valent (Gwrulsi58) 06/22/2023 Pneumococcal Polysaccharide PPV23 (Pneumovax) 01/02/2008 Seasonal [...] No 04/08/2024 Does the household have a [facility] source of income? (Household - for ages [...] Telephone Encounter - Deon Rausch MD - 05/07/2024 10:49 AM EDTSigned Prescriptions: Disp Refills Ezwgdasqrq-Tffglgx-Zxhbwkfb 50-325-40 MG O*30 Cap*0 Sig: Take 1 Capsule by mouth every 4 hours as needed for Headache. Authorizing Provider: DEON RAUSCH * Telephone Encounter - Coby Fragoso [facility] - 05/07/2024 8:41 AM EDT Pending Prescriptions: Disp Refills Wcnaygkzso-Upnxomf-Xepiyrda 50-325-40 MG O*30 Cap*0 Sig: Take 1 Capsule by mouth every 4 hours as needed for Headache. * Telephone Encounter - Coby Fragoso [facility] - 05/07/2024 8:41 AM EDT I have reviewed the patients controlled substance dispensing history in the Prescription Drug Monitoring Program in compliance with the [facility] regulations before prescribing a controlled substance. PDMP checked on 05/07/2024. Pending Prescriptions: Disp Refills Keumcmggdv-Qnqgffg-Ykowocdi 50-325-40 MG *30 Cap*0 Sig: Take 1 Capsule by mouth every 4 hours as needed for Headache. Last Visit: 03/17/2024 (in office), 09/12/2023 (telemedicine) Next Visit: 08/12/2024 Date medication was last filled: 04/18 Date medication is due for refill: 04/23 Pharmacy: [id number] Is this request for a controlled substance? Yes and Urine Drug Screen Not completed Toxicology results: No results found. However, due to the size of the patient record, not all encounters were searched.Please check Results Review for a complete set of results. Please approve if appropriate. Thank you, Coby Fragoso, PharmD. Clinical Pharmacist [facility] ([facility]) 05/07/2024, 8:41 AM * Telephone Encounter - Ariana Foster CPhT - 05/05/2024 10:52 AM EDT Did you pend patient's preferred pharmacy and medication before forwarding?yes Pharmacy: [id number] Pending Prescriptions: Disp Refills Phexccvzmj-Kdsashl-Dtzizkdw 50-325-40 MG *30 Cap*0 Sig: Take 1 Capsule by mouth every 4 hours as needed for Headache. Last Visit: 03/17/2024 (in office), 09/12/2023 (telemedicine) Next Visit: 08/12/2024 If no future appointments scheduled, and last appointment is greater than a year ago, please schedule patient for a follow-up appointment Last date the medication was ordered: 04/18/24 Is this request for a controlled substance?Yes, What was the last refill date 04/18/24 w/ quantity 30 and dosage 50-325-40mg and Urine Drug Screen Not completed Urine Drug Screen:No results found. However, due to the size of the patient record, not all encounters were searched. Please check Results Review for a complete set of results. Patient Phone Numbers Labs: Lab Results Component Value Date/Time CREAT 1.0 05/01/2024 11:08 AM CREAT 0.80 08/02/2023 12:00 AM CREAT 0.88 06/26/2023 05:43 PM CREAT 1.2 (H) 09/07/2020 10:58 AM POTASSIUM 4.5 05/01/2024 11:08 AM POTASSIUM 3.0 (A) 08/02/2023 12:00 AM POTASSIUM 3.9 06/26/2023 05:43 PM POTASSIUM 4.8 09/07/2020 10:58 AM TSH 1.80 01/08/2024 12:22 PM TSH 2.41 12/09/2019 01:49 PM LDLCALC 32 08/30/2018 04:00 PM LDLDIRECT 52 04/09/2023 01:44 PM LDLDIRECT 30 09/07/2020 10:58 AM ALT 20 01/08/2024 12:22 PM ALT 20 09/07/2020 10:58 AM HGBA1C 8.8 (H) 01/30/2024 08:27 AM HGBA1C 8.3 (H) 12/09/2019 01:49 PM documented in this encounter Plan of Treatment Upcoming Encounters Date Type Department Care Team (Late st Contact Info) Description 05/08/2024 10:00 AM EDT Home Visit [facility] [address] [address] Zurdo Christina, PRABHA [address] [place] [address] [address] 05/14/2024 9:00 AM EDT Imaging Radiology [address] [place] [address] 05/15/2024 1:00 PM EDT Office Visit Pharmacy, [facility] [place] [address] [facility] [place] [address] Pharmacist1, [facility] [address] [facility] [place] [address] 06/02/2024 9:30 AM EDT Imaging Radiology [facility] [address] [facility] [place] [address] 08/12/2024 9:20 AM EST Office Visit Family Practice [facility] [address] [facility] [place] [address] Deon Rausch MD 132 [facility] [place] [address] 10/30/2024 9:00 AM EST Office Visit Neurology [facility] 200 [facility] [place] [address] Sandy Juárez PA-C [address] [facility] [place] [address] 11/03/2024 11:00 AM EST Office Visit Sleep Disorders Ctr [facility] [address] [facility] [place] [phone] Christina Birch DO 132 [facility] [place] [address] 11/04/2024 9:30 AM EST Office Visit Gastroenterology, [facility] 132 [facility] [place] [address] Tia Taylor CRNP 132 [facility] [place] [address] 11/27/2024 9:40 AM EST Office Visit Nephrology, [facility] [address] [facility] [place] [address] Fidelina Baumann MD 200 [facility] [place] [address] Scheduled Procedures Name Priority Associated Diagnoses Date/Ti [...] Additional history exists CKD PHOS USE SMARTSET 88672 06/18/202405/26, 06/16/2023, 06/15/2023, Additional history exists HbA1c 08/01/2024 01/30/2024, 08/25, 07/31/2023, Additional history exists Diabetic Eye Exam 09/13/2024 09/13/2023, , 09/13/2023, Additional history exists B-12 09/18/2024 09/18/2023, 08/24, 2020, Additional history exists GFR 11/01/2024 05/01/2024, 12/23, 10/15/2023, Additional history exists Albumin/Creatinine Ratio 01/07/2025 024, 03/09/2023, 12/22/2022, Additional history exists CKD HGB USE SMARTSET 34354 01/07/202501/07, 01/08/2024, 10/15/2023, Additional history exists TSH [...] this encounter Medical Devices Implanted Type Area Chief Medical Physicist Device Identifier Shelf Expiration Date Model / Serial / Lot Cath Roselia Single Lumen - [id number] Implanted:Qty : 1 on 03/12/2008 at [facility] Left: Chest [facility] *DO NOT USE* 07/25/2012 21-4053-24 / / [id number] Sut Steel 6 M654g - [id number] Implanted:Qty : 1 on 11/01/2010 at [facility] N/A: Chest DO NOT USE M654G / / Sut Steel 6 M654g - [id number] Implanted:Qty : 1 on 11/01/2010 at [facility] N/A: Chest DO NOT USE M654G / / Valve Tarsha Aortic [id number] - [id number] Implanted:Qty : 1 on 11/01/2010 at OR [facility] N/A: Heart [employer] 05/20/2012 2800TFX-25 / / [id number] Mesh Soft [id number] - [id number] Implanted:Qty : 1 on 10/10/2019 by Gigi Hendrickson MD at OR [facility] [place] [place] N/A: Abdomen CR BARD : DAVOL [id number] 05/21/2024 [id number] / / [id number] Lens 22.5 Sn60wf - [id number] - [id number] Implanted:Qty : 1 on 09/15/2020 by Renaldo Cook, Cece Acosta MD at [facility] Right: Eye IVA : SURGICAL [id number] 05/13/2025 SN60 WF.225 / [id number] / [id number] Lens 21.5 Sn60wf - [id number] - [id number] Implanted:Qty : 1 on 12/19/2023 by Ramsey Burnett, DO at OR [facility] Left: Eye IVA : SURGICAL 12/03/2024 SN60WF.2 15 / [id number] / documented as of this encounter Visit Diagnoses Diagnosis Acute intractable tension-type headache documented in this encounter Additional Health Concerns [...] statute hierarchy) Jovita Ovalle Adult Child Health Construction Equipment Overhauler resentative (appointed verbally by patient or by statute hierarchy) Care Teams Quality Improvement Analyst Relationship Specialty Start Date End Date Deon Rausch MD [address] [place] [address] PCP - General Family Medicine 02/12/20 documented as of this encounter
--- OUTSIDE RECORDS SUMMARY | 2024-06-05 14:38 | External Medical Summary | Summary of Care ---
Author Name Unknown Organization [facility] Address [address] [place] [address] Phone [phone] Care Team Providers Care Ecdis N Navigation Operator Name Role Phone Gregory Rausch MD Primary Care Provider [phone] Reason for Visit * Reason Onset Date Comments Home Monitoring Alarm 05/15/2024 Encounter Details Date Type Department Care Team (Late st Contact Info) Description 05/15/2024 Home Monitoring Care Coordination [address], [place] [id number] Hannah Lopez, SCHOOL TRANSPORTATION DIRECTOR HTN, goal below 130/80* Allergies Active Allergy Reactions Criticality Noted Date Comments Adhesive Tape 07/02/2017 Can tolerate band-aids Glycerin Other (Please comment) 03/12/2008 Topical agents with glycein-burning & itching Lactose 12/09/2014 Dairy - gas Lisinopril Cough 01/21/2010 Monosodium Glutamate Edema Other 03/12/2008 Hands and feet Penicillins Rash 11/14/2007 documented as of this encounter (statuses as of 05/15/2024) Medications Medication Sig Dispensed Refills Start Date [...] (Glucose)Indication s:DM type 2, not at goal ([facility]) 3 every 15 minutes until glucose [...] in the morning. 30 Capsule 5 4 Active CPAP every night at bedtime. Active [...] insulin ([facility]) Inject 36 Units under the skin [...] pump 1 Kit 5 4 Active Nystatin 940344 UNIT/GM External Powder (Nystop)Indications :Candidal intertrigo APPLY [...] before bedtime. 180 Tablet 3 4 Active Metoprolol Tartrate 25 MG Oral Tablet (Lopressor) Take 1 Tablet by mouth in the morning and 1 Tablet before bedtime. 60 Tablet 5 4 05/15/20 24 Discontinu ed(Medicat ion/Dose Changed) documented as of this encounter (statuses as of 05/15/2024) Active Problems Problem Noted Date Diagnosed Date [...] eye 09/28/2020 Coronary artery disease invo lving [place] coronary artery of [place] heart without angina pectoris 12/16/2019 Last Assessment [...] as of this encounter (statuses as of 05/15/2024) Resolved Problems Problem Noted Date Diagnosed Date [...] 12/21/2016 Diabetes mellitus 01/05/2014 12/21/2016 LEYVA RESEARCH OTHER*[id number] 01/05/2014 12/21/2016 Axillary pain 11/03/2013 12/21/2016 Obesity, [...] 12/21/2016 FOLLOWING SURGERY, UNSPECIFI ED ([facility] BSO 08/25/2011) 08/26/2011 12/21/2016 ADVANCE DIRECTIVE INFORMATION 04/17/2011 12/21/2016 Overview: Yes, Patient instructed to provide copy of advance directive for provider to review and to be scanned into Electronic Medical Record ADVANCE DIRECTIVE INFORMATION 03/01/2011 12/21/2016 Overview: Yes, Patient instructed to provide copy of advance directive for provider to review and to be scanned into Electronic Medical Record [facility] V710 Clinical Trial*[id number] 12/22/2010 04/14/2011 S/P aortic valve replacement 12/01/2010 08/26/2011 S/P AORTIC VALVE REPLACEMENT - #25 pericardial Mc valve 11/01/2010 06/28/2018 Overview: Aortic valve replacement with #25 pericardial Mc valve, model 2800TFX, serial number [id number] (Dr. Walker) [facility] V710 Clinical Trial*[id number] 10/18/2010 11/21/2010 Type 2 diabetes mellitus wit [...] as of this encounter (statuses as of 05/15/2024) Immunizations Name Administration Dates Next Due COVID-19 mRNA, LNP-s, No Pre serve, 2-Dose Series (Moderna) 10/25/2021,02/16/2021,01/18/2021 HEP A - Hepatitis A (Adult > 18 yrs) 06/07/2018, 12/05/2017 Hepatitis B, 20+ yrs 06/07/2018,01/08/20 18,12/05/2017,06/15,10/27/2013,09/12/2013 Pneumococcal Conjugate Vacci ne, 20-valent ([id number]) 06/22/2023 Pneumococcal Polysaccharide PPV23 (Pneumovax) 01/02/2008 Seasonal [...] of this encounter Progress Notes * Heather SoNeeraj, [facility] - 05/15/2024 11:35 AM EDT [facility] - Hypertension Management Patient Phone Numbers Spoke to Fabi, patient's daughter, and she asked that I call patient since she couldn't answer all of my questions. 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 Blood Pressure Goal: 130/80 mmHg Type of Alert: [place] Current Hypertension Medications: Metoprolol 25mg twice daily Previous antihypertensive use: metolazone, spironolactone, torsemide, valsartan, furosemide, hydrochlorothiazide, lisinopril Experiencing symptoms related to elevated BP: No Systolic Diastolic HR 155 89 110 139 84 89 136 71 74 120 65 99 138 66 93 104 58 77 132 82 88 136 76 100 Systolic Diastolic HR Average 133 74 91 Hi 155 89 110 Lo 104 58 74 Range 51 31 36 BP Readings from Last 3 Encounters: 05/08/24 118/74 05/01/24 124/66 05/01/24 120/60 Pulse Readings from Last 3 Encounters: 05/08/24 84 05/01/24 85 04/14/24 86 Recent Labs Units 05/01/24 1108 01/08/24 1229 01/08/24 1222 10/15/23 1156 SODIUM - [facility] mmol/L 133* -- 134* 131* POTASSIUM - [facility] mmol/L 4.5 -- 5.1 3.6 POTASSIUM, RANDOM URINE - [facility] mmol/L -- 50.2 -- -- CHLORIDE - [facility] mmol/L 97* -- 95* 86* CO2 - [facility] mmol/L 25 -- 27 26 CREATININE - [facility] mg/dL 1.0 -- 1.0 1.3* BUN - [facility] mg/dL 16 -- 11 27* ASSESSMENT & PLAN: Spoke to Jovita and she takes her BP when she is relaxed. Decided to increase Metoprolol since her HR is elevated also. Patient educated on the following: Reviewed proper home blood pressure measurement technique with patient including: -Use a validated upper arm blood pressure cuff (www.validatebp.org has a list; Omron and A&D are trusted brands) -Empty bladder and do not use tobacco, drink caffeinated beverages, or exercise for 30 minutes prior to checking -Rest quietly for 5 minutes prior to checking; do not talk while checking -Sit in a chair with support. Place both feet flat on the ground. Do not cross legs. Rest arm comfortably at heart level on table -Place cuff above bend of elbow; ensure cuff is appropriately sized -Take at least 2 readings 1 minute apart before morning medications and in the evening before supper; record the average of the 2 readings on a log or in a journal MEDICATION CHANGES: titration of current medication dose Hypertension Medications: INCREASE: Metoprolol 50mg twice daily HEALTH MAINTENANCE INTERVENTIONS: Labs: Ordered & Scheduled: Up to date FOLLOW UP: As needed Neeraj Romero RPh Clinical Pharmacist - [facility] 05/15/2024, 11:35 AM * Hannah Lopez LPN - 05/15/2024 10:59 AM EDT Jovita Arevalo Rose [phone] Jovita Rose is currently participating in the [facility] Hypertension Management Program and had areading on 05/15/24 of 155/89. Pt has alerted for an Average BP [...] we can have them changed. Thank you! Hannah Lopez LPN documented in this encounter Plan of Treatment Upcoming Encounters Date Type Department Care Team (Late st Contact Info) Description 06/02/2024 9:30 AM EDT Imaging Radiology [facility] [address] [address] 06/11/2024 2:30 PM EDT Home Visit [facility] [place], [facility] [address] [address] Zurdo Christina, PRABHA [address] [address] 06/19/2024 9:40 AM EDT Office Visit Pharmacy, [facility] [address] [place] [address] Pharmacist1, [facility] [address] [facility] [address] [address] 08/12/2024 9:20 AM EST Office Visit Family Practice [facility] [address] [address] Gregory Rausch MD [address] [address] 11/03/2024 11:00 AM EST Office Visit [facility] [address] [phone] Christina Birch, [address] [place] [address] 11/04/2024 9:30 AM EST Office Visit Gastroenterology, [facility] [address] [place] [address] Tia [place] CRNP [address] [place] [address] 11/27/2024 9:40 AM EST Office Visit Nephrology, [facility] [address] [place] [place] [address] Fidelina Baumann MD [address] [place] [address] Scheduled Procedures Name Priority Associated Diagnoses Date/Ti [...] Additional history exists CKD PHOS USE SMARTSET 57985 06/18/202405/26, 06/16/2023, 06/15/2023, Additional history exists HbA1c 08/01/2024 01/30/2024, 08/25, 07/31/2023, Additional history exists Diabetic Eye Exam 09/13/2024 09/13/2023, , 09/13/2023, Additional history exists B-12 09/18/2024 09/18/2023, 08/24, 2020, Additional history exists GFR 11/01/2024 05/01/2024, 12/23, 10/15/2023, Additional history exists Albumin/Creatinine Ratio 01/07/2025 024, 03/09/2023, 12/22/2022, Additional history exists CKD HGB USE SMARTSET 22713 01/07/202501/07, 01/08/2024, 10/15/2023, Additional history exists TSH [...] this encounter Medical Devices Implanted Type Area Gastroenterology Nurse Practitioner Device Identifier Shelf Expiration Date Model / Serial / Lot Cath Roselia Single Lumen - [id number] Implanted:Qty : 1 on 03/12/2008 at OR [facility] Left: Chest [employer] *DO NOT USE* 07/25/2012 21-4053-24 / / [id number] Sut Steel 6 M654g - [id number] Implanted:Qty : 1 on 11/01/2010 at OR [facility] N/A: Chest DO NOT USE M654G / / Sut Steel 6 M654g - [id number] Implanted:Qty : 1 on 11/01/2010 at OR [facility] N/A: Chest DO NOT USE M654G / / Valve Tarsha Aortic [id number] - [id number] Implanted:Qty : 1 on 11/01/2010 at OR [facility] N/A: Heart [employer] 05/20/2012 [id number]-25 / / [id number] Description:[email or web address] Mesh Soft 27n21pn - [id number] Implanted:Qty : 1 on 10/10/2019 by Gigi Hendrickson MD at OR [employer] [employer] N/A: Abdomen CR BARD : DAVOL [id number] 05/21/2024 [id number] / / [id number] Lens 22.5 Sn60wf - [id number] - [id number] Implanted:Qty : 1 on 09/15/2020 by Cece Roland MD at OR [facility] Right: Eye IVA : SURGICAL [id number] 05/13/2025 SN60 WF.225 / [id number] / [id number] Lens 21.5 Sn60wf - [id number] - [id number] Implanted:Qty : 1 on 12/19/2023 by Ramsey Burnett DO at OR [facility] Left: Eye IVA : SURGICAL 12/03/2024 SN60WF.2 15 / [id number] / documented as of this encounter Visit Diagnoses Diagnosis HTN, goal below 130/80- Primary Unspecified essential hypertension documented in this encounter [...] statute hierarchy) Jovita Ovalle Adult Child Health Bonus Clerk resentative (appointed verbally by patient or by statute hierarchy) [email or web address] Care Teams Ecdis N Navigation Operator Relationship Specialty Start Date End Date Gregory Rausch MD [address] [address] PCP - General Family Medicine 02/12/20 documented as of this encounter
--- OUTSIDE RECORDS SUMMARY | 2024-06-05 14:38 | External Medical Summary | Summary of Care ---
Author Name Unknown Organization [facility] Address [address] [place] [address] Phone [phone] Care Team Providers Care Piano Regulator Inspector Name Role Phone Gregory Rausch MD Primary Care Provider [phone] Reason for Referral * Precert (Within 10 days (routine)) - Pending Review Specialty Diagnoses / Procedures Referred By Bruce wasserman Referred To Contact Radiology Diagnoses Memory changes Cognitive changes Procedures CT HEAD/BRAIN WO CONTRAST Cinthia Andrews PA-C [address] [place] [address] Referral ID Status Reason Start Date Expiration Date V isits Requested Visits Authorized [id number] Pending Review 05/21/2024 999 999 * Precert (Within 10 days (routine)) - Pending Review Specialty Diagnoses / Procedures Referred By Bruce wasserman Referred To Contact Radiology Diagnoses Memory changes Cognitive changes Procedures MRI BRAIN W WO CONTRAST Cinthia Andrews PA-C [address] [place] [address] Referral ID Status Reason Start Date Expiration Date V isits Requested Visits Authorized [id number] Pending Review 04/21/2024 999 999 Reason for Visit * Reason Comments NEW PATIENT Memory Problems * Evaluate & Treat - Unlimited Visits (Within 10 days (routine)) - Authorized Specialty Diagnoses / Procedures Referred By Bruce t Referred To Contact Neurology Diagnoses Memory changes Gregory Rausch MD [address] [place] [address] Referral ID Status Reason Start Date Expiration Date Visits Requested Visits Authorized [id number] Authorized Specialty Services Required 04/01/2024 999 [id number] Encounter Details Date Type Department Care Team (Late st Contact Info) Description 04/14/2024 8:00 AM EDT Office Visit Neurology [employer] [address] [place] [address] Cinthia Andrews PA-C [address] [place] [address] Memory changes*; Cognitive changes Allergies Active Allergy Reactions Criticality Noted Date Comments Adhesive Tape 07/02/2017 Can tolerate band-aids Glycerin Other (Please comment) 03/12/2008 Topical agents with glycein-burning & itching Lactose 12/09/2014 Dairy - gas Lisinopril Cough 01/21/2010 Monosodium Glutamate Edema Other 03/12/2008 Hands and feet Penicillins Rash 11/14/2007 documented as of this encounter (statuses as of 05/14/2024) Medications Medication Sig Dispensed Refills Start Date End Date Status aspirin enteric coated 81 MG TBECIndications:Ao rtic valve disorder Take 1 Tab by mouth daily. 90 Tab 11 09/30/19 19 Active AZO Cranberry 250-30 MG Oral Tablet Take 1 Tablet by mouth in the morning and 1 Tablet before bedtime. Active BD Glucose 5 GM Oral Tablet Chewable (Glucose)Indicatio ns:DM type 2, not at goal (HCC) 3 every 15 minutes until glucose is > 100 mg/dL for hypoglycemia E11.9 100 Tab 3 07/06/20 21 Active OneTouch Verio w/Device Kit Use up to 4 times a day E11.9 1 Kit 02/11/20 22 Active OneTouch Delica Lancets 33G TEST 4 TIMES DAILY DIRECTED, E11.9 400 Each 3 02/11/20 22 Active Melatonin 10 MG Oral CapsuleIndications :sleep Take 1 Capsule by mouth at bedtime. Active Gaviscon 80-14.2 MG Oral Tablet Chewable (Alum Hydroxide-Mag Trisilicate) Take by mouth as needed. Active traZODone HCl 100 MG Oral Tablet (Desyrel) Take 1 Tablet by mouth at bedtime. Active DULoxetine HCl 20 MG Oral Capsule Delayed Release Particles (Cymbalta) Take 1 Capsule by mouth in the morning. 30 Capsule 5 12/12/19 24 Active CPAP every night at bedtime. Active One-A-Day Womens 50 Plus Oral Tablet Take 1 Tablet by mouth in the morning. Active Probiotic (Lactobacillus) Oral Capsule Take 2 Capsules by mouth in the morning. Active OneTouch Verio In Vitro Strip (Glucose Blood) Use up to 4 times a day E11.9 100 Strip 11 01/22/20 24 Active Potassium Chloride Shannon ER 10 MEQ Oral Tablet Extended ReleaseIndications :Acute on chronic heart failure with preserved ejection fraction (HFpEF) ([facility]) Take 1 Tablet by mouth in the morning and 1 Tablet before bedtime. 180 Tablet 3 01/22/20 24 Active BD Pen Needle Short U/F 31G X 8 MMIndications:Type 2 diabetes mellitus with hemoglobin A1c goal of less than 7.0% ([facility]),Type 2 diabetes mellitus with stage 3a chronic kidney disease, with long-term current use of insulin ([facility]) Use with insulin 4 times daily 400 Each 3 01/10/20 24 Active BD Insulin Syringe 25G X 1" 1 ML (Insulin Syringe-Needle U-100) Use daily with omnipod as directed DX E11.9 100 Each 5 03/14/20 24 Active Curity Alcohol Swabs Pad Use as directed as needed 200 Each 03/14/20 24 Active Clopidogrel Bisulfate 75 MG Oral Tablet (pLAVix) Take 1 Tablet by mouth in the morning. 90 Tablet 2 01/10/20 24 Active Levothyroxine Sodium 75 MCG Oral Tablet (Levoxyl)Indicatio ns:Hypothyroidism TAKE 1 TAB BY MOUTH DAILY FIRST THING IN AM, AT LEAST 30 MIN PRIOR TO BREAKFAST OR OTHER MEDICATIONS 90 Tablet 2 01/10/20 24 Active Aquaphor External Ointment Apply topically to affected area as needed for Dry Skin. Apply to face 420 g 01/10/20 24 Active Ozempic (2 MG/DOSE) 8 MG/3ML Subcutaneous Solution Pen-injector (Semaglutide (2 MG/DOSE))Indicatio ns:weekly on fridays Inject 2 mg under the skin once a week. 9 mL 3 01/09/20 24 Active Ammonium Lactate 12 % External Lotion (Lac-Hydrin) Apply to both feet once daily. 400 g 2 01/10/20 24 Active Atorvastatin Calcium 40 MG Oral Tablet (Lipitor)Indicatio ns:Heart failure, systolic, due to idiopathic cardiomyopathy (HCC),S/P aortic valve replacement,HTN, goal below 140/80,Dyslipidemi a, goal LDL below 70 Take 1 tablet by mouth daily to prevent heart attack/stroke, protect kidney, and cholesterol 90 Tablet 2 01/10/20 24 Active Meclizine HCl 25 MG Oral Tablet (Antivert)Indicati ons:Muscle tension headache Take 2 Tablets by mouth 2 times a day. 360 Tablet 2 01/10/20 24 Active Metoprolol Tartrate 25 MG Oral Tablet (Lopressor) Take 1 Tablet by mouth in the morning and 1 Tablet before bedtime. 60 Tablet 5 01/10/20 24 Active Gabapentin 300 MG Oral Capsule (Neurontin) Take 1 Capsule by mouth in the morning and 1 Capsule at noon and 1 Capsule before bedtime. 90 Capsule 5 02/04/20 24 Active Fluticasone Propionate 50 MCG/ACT Nasal Suspension (Flonase)Indicatio ns:Dizziness Administer 2 Sprays into each nostril in the morning. 16 g 3 02/07/20 24 Active Magnesium Oxide -Mg Supplement 400 (240 Mg) MG Oral Tablet (Mag-Ox)Indication s:HTN, goal below 130/80 One tablet by mouth daily in the morning 90 Tablet 3 03/07/20 24 Active Tresiba FlexTouch 200 UNIT/ML Subcutaneous Solution Pen-injector (Insulin Degludec)Indicatio ns:Type 2 diabetes mellitus with hemoglobin A1c goal of less than 7.0% ([facility]),Type 2 diabetes mellitus with stage 3a chronic kidney disease, with long-term current use of insulin ([facility]) Inject 36 Units under the skin in the morning. 6 mL 2 03/14/20 24 Active Insulin Aspart 100 UNIT/ML Injection Solution (NovoLOG)Indicatio ns:Type 2 diabetes mellitus with hemoglobin A1c goal of less than 7.0% ([facility]) Use up to 50 units per day in Omnipod. 03/31/20 24 Active Omnipod 5 G6 Intro (Gen 5) Kit Use as directed. Use to delivery insulin via insulin pump 1 Kit 5 04/10/20 24 Active Nystatin 270838 UNIT/GM External Powder (Nystop)Indication s:Candidal intertrigo Apply topically to affected area 3 times a day. Apply to affected areas 60 g 1 01/10/20 24 024 Discontinued Saccharomyces boulardii 250 MG Oral Capsule (Florastor) Take 1 Capsule by mouth in the morning and 1 Capsule before bedtime. 60 Capsule 02/07/20 24 024 Discontinued(Re fill) Butalbital-Aspirin -Caffeine 50-325-40 MG Oral Capsule (Fiorinal)Indicati ons:Acute intractable tension-type headache Take 1 Capsule by mouth every 4 hours as needed for Headache for up to 5 days. 30 Capsule 04/01/20 24 024 Discontinued(Re fill) documented as of this encounter (statuses as of 05/14/2024) Active Problems Problem Noted Date Diagnosed Date Recurrent Clostridium difficile diarrhea Last Assessment & Plan: Finish dificid as [...] eye 09/28/2020 Coronary artery disease invo [place]ving [place] coronary artery of [place] heart without angina pectoris 12/16/2019 Last Assessment [...] as of this encounter (statuses as of 05/14/2024) Resolved Problems Problem Noted Date Diagnosed Date [...] mgmt 02/19/2014 12/21/2016 Diabetes mellitus 01/05/2014 12/21/2016 LITHONIA RESEARCH OTHER*[id number] 01/05/2014 12/21/2016 Axillary pain 11/03/2013 12/21/2016 Obesity, [...] 09/201008/26/2011 12/21/2016 FOLLOWING SURGERY, UNSPECIFI ED ([facility] 08/25/2011) 08/26/2011 12/21/2016 ADVANCE DIRECTIVE INFORMATION 04/17/2011 12/21/2016 Overview: Yes, Patient instructed to provide copy of advance directive for provider to review and to be scanned into Electronic Medical Record ADVANCE DIRECTIVE INFORMATION 03/01/2011 12/21/2016 Overview: Yes, Patient instructed to provide copy of advance directive for provider to review and to be scanned into Electronic Medical Record [facility] V710 Clinical Trial*[id number] 12/22/2010 04/14/2011 S/P aortic valve replacement 12/01/2010 08/26/2011 S/P AORTIC VALVE REPLACEMENT - #25 pericardial Mc valve 11/01/2010 06/28/2018 Overview: Aortic valve replacement with #25 pericardial Mc valve, model [id number], serial number [id number] (Dr. Walker) [facility] V710 Clinical Trial*[id number] 10/18/2010 11/21/2010 Type 2 diabetes mellitus wit [...] as of this encounter (statuses as of 05/14/2024) Immunizations Name Administration Dates Next Due COVID-19 mRNA, LNP-s, No Pre serve, 2-Dose Series (Moderna) 10/25/2021,02/16/2021,01/18/2021 HEP A - Hepatitis A (Adult > 18 yrs) 06/07/2018, 12/05/2017 Hepatitis B, 20+ yrs 06/07/2018,01/08/20 18,12/05/2017,06/15,10/27/2013,09/12/2013 Pneumococcal Conjugate Vacci ne, 20-valent ([id number]) 06/22/2023 Pneumococcal Polysaccharide PPV23 (Pneumovax) 01/02/2008 Seasonal [...] Sign Reading Time Taken Comments Blood Pressure 126/76 04/14/2024 8:08 AM EDT Pulse 86 04/14/2024 8:08 AM EDT Temperature 37.3 C (99.2 F) 04/14/2024 8:08 AM ED T Respiratory Rate 16 04/14/2024 8:08 AM EDT Oxygen Saturation - - Inhaled Oxygen Concentration - - Weight 72.4 kg (159 lb 11.2 oz) 04/14/2024 8:08 AM EDT Height - - Body Mass Index 32.26 03/24/2024 11:11 AM EDT documented in this encounter Functional Status Functional [...] as of this encounter Progress Notes * Cinthia Andrews PA-C - 04/14/2024 8:08 AM EDT Consult and H & P - NEUROLOGY Name: Jovita Rose Date: 04/14/2024 Time: 8:08 AM Referring Provider: Gregory Rausch MD Chief Complaint: Chief Complaint Patient presents with NEW PATIENT Memory Problems This is a 63 year old right handed woman new patient referred to me today for memory issues. HPI & Source of HPI The patient and aid and daughter on phone was the historian, and they are reliable. 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 She was seen in our office 2020 for tremor which was induced by medication she was on. She is now her because of memory issues. Her daughter is on the phone and is wondering if there is a neurologic issue that is causing the cognitive issues. The patient says she feels depressed and is on Cymbalta since November 2023. She had an MRI brain in 2014 which showed white matter changes. She has an extensive medication history. She lives independently and has an aid with her that helps her Mondays and Fridays. She denies any falls. She is a non smoker, minimal EtOH, moderate caffeine use, no other drugs, denies, CP, SOB, abdominal pain, N, V. I have reviewed the patient's medications and allergies, past medical, surgical, social and family history, updating these as appropriate. See Histories section of the electronic medical record for adisplay of this information. What was the mini mental exam score? 29 What is today's date? 1 What is today's year? 1 What is the month? 1 What day is today? 1 What season is it? 1 What is the name of this hospital/clinic? 1 What floor are we on? 1 What town/city are we in? 1 What county are we in? 1 What state are we in? 1 Did the patient repeat ball? 1 Did the patient repeat flag? 1 Did the patient repeat tree? 1 Did the patient respond D? 1 Did the patient respond L? 1 Did the patient respond R? 1 Did the patient respond O? 1 Did the patient respond W? 1 Did the patient respond ball? 1 Did the patient respond flag? 1 Did the patient respond tree? 0 Row Show the patient a watch and ask what it is. 1 Show the patient a pencil and ask what it is. 1 Ask the patient to repeat No ifs, ands or buts. 1 Patient takes paper in hand 1 Patient folds paper in half [address] paper on the floor 1 Hold card "Close eyes". Ask pt. to read and do what it says 1 Give pt. paper and ask to write a sentence. 1 Show pt. drawing of intersecting pentagons. Ask pt. to draw 1 Patient Active Problem List Diagnosis Dyslipidemia DANYELLE on CPAP Acquired hypothyroidism History of colon cancer History of breast cancer Benign paroxysmal positional vertigo due to bilateral vestibular disorder Persistent insomnia S/P TAVR (transcatheter aortic valve replacement) HTN, goal below 130/80 H/O bilateral mastectomy LEYVA (nonalcoholic steatohepatitis) Hoarding disorder Social anxiety disorder Cervical disc disorder with radiculopathy S/P drug eluting coronary stent placement Schizoaffective disorder, bipolar type (HCC) Medical marijuana use Coronary artery disease involving [place] coronary artery of [place] heart without angina pectoris Cystoid macular edema of right eye Type 2 diabetes mellitus with stage 3a chronic kidney disease, with long-term current use of insulin (HCC) Type 2 diabetes mellitus with hemoglobin A1c goal of less than 8.0% (HCC) Type 2 diabetes mellitus with diabetic peripheral angiopathy without gangrene (HCC) Obesity, Class I, BMI 30.0-34.9 (see actual BMI) Thrombocytopenia (HCC) Hypertensive kidney disease with stage 3a chronic kidney disease (HCC) Recurrent Clostridium difficile diarrhea Family History Problem Relation Name Age of Onset Heart Disorder Mother CAD - at age 56 during second CABG Heart Disorder Father from CA at age 51 Stroke Sister Alcohol and Other Disorders Associated Brother Heart Disorder Brother Older brother - CABG X 4 at age 65. Younger Brother CA at age 45 Other (Other) Brother HIV +; CA at age 31 Diabetes Grandmother (Maternal) Alcohol and Other Disorders Associated Son Heart Disorder Son Coartaction of Aorta Diabetes Aunt (Unspecified) Medications: Are you taking your medications? yes Current Outpatient Medications Medication Sig Dispense Refill aspirin enteric coated 81 MG TBEC Take 1 Tab by mouth daily. 90 Tab 11 AZO Cranberry 250-30 MG Oral Tablet Take 1 Tablet by mouth in the morning and 1 Tablet before bedtime. BD Glucose 5 GM Oral Tablet Chewable (Glucose) 3 every 15 minutes until glucose is > 100 mg/dL for hypoglycemia E11.9 100 Tab 3 PlaceBloggerTouch VerRivermine Software w/Device Kit Use up to 4 times a day E11.9 1 Kit 0 Vokle Lancets 33G TEST 4 TIMES DAILY DIRECTED, E11.9 400 Each 3 Melatonin 10 MG Oral Capsule Take 1 Capsule by mouth at bedtime. Gaviscon 80-14.2 MG Oral Tablet Chewable (Alum Hydroxide-Mag Trisilicate) Take by mouth as needed. traZODone HCl 100 MG Oral Tablet (Desyrel) Take 1 Tablet by mouth at bedtime. DULoxetine HCl 20 MG Oral Capsule Delayed Release Particles (Cymbalta) Take 1 Capsule by mouth in the morning. 30 Capsule 5 CPAP every night at bedtime. One-A-Day Womens 50 Plus Oral Tablet Take 1 Tablet by mouth in the morning. Probiotic (Lactobacillus) Oral Capsule Take 2 Capsules by mouth in the morning. [employer] In Vitro Strip (Glucose Blood) Use up to 4 times a day E11.9 100 Strip 11 Potassium Chloride Shannon ER 10 MEQ Oral Tablet Extended Release Take 1 Tablet by mouth in the morning and 1 Tablet before bedtime. 180 Tablet 3 BD Pen Needle Short U/F 31G X 8 MM Use with insulin 4 times daily 400 Each 3 BD Insulin Syringe 25G X 1" 1 ML (Insulin Syringe-Needle U-100) Use daily with omnipod as directed DX E11.9 100 Each 5 Curity Alcohol Swabs Pad Use as directed as needed 200 Each 5 Clopidogrel Bisulfate 75 MG Oral Tablet (pLAVix) Take 1 Tablet by mouth in the morning. 90 Tablet 2 Levothyroxine Sodium 75 MCG Oral Tablet (Levoxyl) TAKE 1 TAB BY MOUTH DAILY FIRST THING IN AM, AT LEAST 30 MIN PRIOR TO BREAKFAST OR OTHER MEDICATIONS 90 Tablet 2 Nystatin 535033 UNIT/GM External Powder (Nystop) Apply topically to affected area 3 times a day. Apply to affected areas 60 g 1 Aquaphor External Ointment Apply topically to affected area as needed for Dry Skin. Apply to face 420 g 0 Ozempic (2 MG/DOSE) 8 MG/3ML Subcutaneous Solution Pen-injector (Semaglutide (2 MG/DOSE)) Inject 2 mg under the skin once a week. 9 mL 3 Ammonium Lactate 12 % External Lotion (Lac-Hydrin) Apply to both feet once daily. 400 g 2 Atorvastatin Calcium 40 MG Oral Tablet (Lipitor) Take 1 tablet by mouth daily to prevent heart attack/stroke, protect kidney, and cholesterol 90 Tablet 2 Meclizine HCl 25 MG Oral Tablet (Antivert) Take 2 Tablets by mouth 2 times a day. 360 Tablet 2 Metoprolol Tartrate 25 MG Oral Tablet (Lopressor) Take 1 Tablet by mouth in the morning and 1 Tablet before bedtime. 60 Tablet 5 Gabapentin 300 MG Oral Capsule (Neurontin) Take 1 Capsule by mouth in the morning and 1 Capsule at noon and 1 Capsule before bedtime. 90 Capsule 5 Fluticasone Propionate 50 MCG/ACT Nasal Suspension (Flonase) Administer 2 Sprays into each nostril in the morning. 16 g 3 Saccharomyces boulardii 250 MG Oral Capsule (Florastor) Take 1 Capsule by mouth in the morning and 1 Capsule before bedtime. 60 Capsule 0 Magnesium Oxide -Mg Supplement 400 (240 Mg) MG Oral Tablet (Mag-Ox) One tablet by mouth daily in the morning 90 Tablet 3 Tresiba FlexTouch 200 UNIT/ML Subcutaneous Solution Pen-injector (Insulin Degludec) Inject 36 Unitsunder the skin in the morning. 6 mL 2 Insulin Aspart 100 UNIT/ML Injection Solution (NovoLOG) Use up to 50 units per day in Omnipod. Omnipod 5 G6 Intro (Gen 5) Kit Use as directed. Use to delivery insulin via insulin pump 1 Kit 5 No current facility-administered medications for this visit. Review of patient's allergies indicates: Allergen Reactions Adhesive Tape Can tolerate band-aids Glycerin Other (Please comment) Topical agents with glycein-burning & itching Lactose Dairy - gas Lisinopril Cough Monosodium Glutamate Edema Other Hands and feet Pcn [Penicillins] Rash Review of Systems: A total number of 10 systems were reviewed pertinent negative and positives not addressed in HPI are listed in the following review. Physical Exam: Constitutional: BP 126/76 | Pulse 86 | Temp 37.3 C (99.2 F) (Tympanic) | Resp 16 | Wt 72.4 kg (159 lb 11.2 oz) | LMP 04/07/2011 | BMI 32.26 kg/m | BSA 1.74 m , appearance over nourished and healthy Ears, Nose, Mouth and Throat: mucous membranes moist, no injection and skin normal, eyes normal Cardiovascular: normal S-1 and S-2, regular rate and rhythm, and systolic murmer Respiratory: no rales, ronchi or wheeze Musculoskeletal: no peripheral edema Skin: normal and intact Eyes: extraocular muscles intact (EOMI) and pupils equal, round and reactive to light (PERRL) NEUROLOGIC EXAMINATION: Mental status: Alert and interactive Oriented to full date and location Oriented to person Speech fluent with no evidence of aphasia Cranial Nerves Normal findings for Cranial Nerves II - XII Reflexes: Lower extremity reflexes decreased Bilateral Sensory: Intact to light touch vibration proprioception intact Coordination: rapid alternating movements are intact: Bilateral, on [id number], and no abnormal or extraneousmovements Gait/Stance: Posture normal. Gait using cane, tandem steady gait Motor: Negative for pronator drift of out stretched arms with eyes closed. Strength: generalized weakness, deconditioned, and uses arms of chair to stand up LABORATORY: Recent labs reviewed Review of prior Studies: No recent imaging available. Impression: Jovita Rose is a 63 year old woman with a history of memory issues. Her neurologic examination today reveals no new focal deficit. The history and examination are suggestive of diagnosis/problem list. Testing and Referrals ordered: MRI ICD-10-CM 1. Memory changes R41.3 2. Cognitive changes R41.89 Return in 6 months or sooner if needed MRI brain with and without r/o strokes lesions, evaluation of white matter changes MME 29/30 will continue to follow Labs today folate, vit d- memory issues likely due to underlying chronic issues and depression Keep physically and mentally active as possible Optimize DM and other chronic conditions Fall precautions use cane at all times PCP for medical management Call with questions concerns Medical Decision Making (determined by lowest of 2 of 3 elements): The medical decision making element of the number and complexity of problems addressed included at least 1 undiagnosed new problem with uncertain prognosis (level 4). The medical decision making element of risk of complications, morbidity, and mortality of patient management is moderate (level 4) due to prescription drug management (moderate risk). The medical decision making element of the amount and complexity of data reviewed and analyzed included an independent interpretation of a test (level 4 at least). When 2 of 3 reach level 4, then this element is considered extensive (level 5). I personally spent a total of 40 minutes. This time was for a new office or established visit and was on the same calendar day. and This time was the total spent on the evaluation, interpretation, and documentation. Education / Consultation - Topics covered as I spent 30 minutes, which is greater than 50% of this visit, counseling the patient on: Diagnostic Results Prognosis Importance of compliance with chosen treatment options Risk factor reductions Patient and family education Consulted with physician: Gigi Jara MD was available for direct supervision Copy of note sent to PCP and Referring Provider. Total time of visit: 40 minutes. Cinthia Andrews PA-C Neurology [address] [address] 04/14/2024 8:08 AM I reviewed the above note discuss this case with Cinthia Andrews PAC and agree with plans to obtain imaging studies and to follow the patient long as a mini- mental status score of 29/30 really isn'tindicative of much in way of significant memory dysfunction at this point but certainly if it begins to decline and therapeutic intervention might need to be considered Gigi Jara MD documented in this encounter Nursing Notes * Maribel Sykes MED ASSIST - 04/14/2024 8:06 AM EDT Chief Complaint Patient presents with NEW PATIENT Memory Problems documented in this encounter Miscellaneous Notes * Addendum Note - Cinthia Andrews PA-C - 05/14/2024 9:16 AM EDTAddended by: CINTHIA ANDREWS on: 05/14/2024 09:16 AM Modules accepted: Orders documented in this encounter Plan of Treatment Upcoming Encounters Date Type Department Care Team (Late st Contact Info) Description 06/02/2024 9:30 AM EDT Imaging Radiology [facility] [address] [place] [address] 06/06/2024 8:30 AM EDT Office Visit Pharmacy, [facility] [address] [place] [address] Pharmacist1, [facility] [address] [facility] [place] [address] 06/11/2024 2:30 PM EDT Home Visit [facility] at [place], [facility] [address] [address] Zurdo Christina RN [address] [place] [address] 08/12/2024 9:20 AM EST Office Visit Family Practice [facility] [address] [place] [address] Gregory Rausch MD [address] [place] [address] 10/30/2024 9:00 AM EST Office Visit Neurology [facility] [address] [place] [address] Sandy Juárez PA-C [address] [place] [address] 11/03/2024 11:00 AM EST Office Visit Sleep Disorders [facility]tr [facility] [address] [phone] Christina Birch DO [address] [place] [address] 11/04/2024 9:30 AM EST Office Visit Gastroenterology, [facility] [address] [place] [address] Tia Taylor CRNP [address] [place] [address] 11/27/2024 9:40 AM EST Office Visit Nephrology, Courtney Lima [address] [facility] [place] [address] Fidelina Baumann MD [address] [facility] [place] [address] Pending Results Name Type Priority Associated Diagnoses Date /Time MRI BRAIN W WO CONTRAST Medical Imaging Routine Memory changes Cognitive changes 05/14/2024 8:29 AM EDT Scheduled Orders Name Type Priority Associated Diagnoses Orde r Schedule MRI BRAIN W WO CONTRAST Medical Imaging Routine Memory changes Cognitive changes Expected: 04/21/2024, Expires: 05/15/2025 CT HEAD/BRAIN WO CONTRAST Medical Imaging Routine Memory changes Cognitive changes Expected: 05/21/2024, Expires: 06/14/2025 Scheduled Procedures Name Priority Associated Diagnoses Date/Ti [...] Additional history exists CKD PHOS USE SMARTSET 15339 06/18/202405/26, 06/16/2023, 06/15/2023, Additional history exists HbA1c 08/01/2024 01/30/2024, 08/25, 07/31/2023, Additional history exists Diabetic Eye Exam 09/13/2024 09/13/2023, , 09/13/2023, Additional history exists B-12 09/18/2024 09/18/2023, 08/24, 2020, Additional history exists GFR 11/01/2024 05/01/2024, 12/23, 10/15/2023, Additional history exists Albumin/Creatinine Ratio 01/07/2025 024, 03/09/2023, 12/22/2022, Additional history exists CKD HGB USE SMARTSET 74869 01/07/202501/07, 01/08/2024, 10/15/2023, Additional history exists TSH [...] this encounter Medical Devices Implanted Type Area Centrifugal Casting Machine Tender Device Identifier Shelf Expiration Date Model / Serial / Lot Cath Roselia Single Lumen - [id number] Implanted:Qty : 1 on 03/12/2008 at OR [facility] Left: [facility] *DO NOT USE* 07/25/2012 21-4053-24 / / [id number] Sut Steel 6 M654g - [id number] Implanted:Qty : 1 on 11/01/2010 at OR [facility] N/A: Chest DO NOT USE M654G / / Sut Steel 6 M654g - [id number] Implanted:Qty : 1 on 11/01/2010 at OR [facility] N/A: Chest DO NOT USE M654G / / Valve Tarsha Aortic [id number] - [id number] Implanted:Qty : 1 on 11/01/2010 at OR [facility] N/A: Heart [employer] DANIEL 05/20/2012 2800TFX-25 / / [id number] Description:[email or web address] Mesh Soft 35r69fh - [id number] Implanted:Qty : 1 on 10/10/2019 by Gigi Hendrickson MD at OR [facility] N/A: Abdomen CR BARD : DAVOL [id number] 05/21/2024 [id number] / / [id number] Lens 22.5 Sn60wf - [id number] - [id number] Implanted:Qty : 1 on 09/15/2020 by Renaldo Cook, Cece Acosta MD at OR [facility] Right: Eye IVA : SURGICAL [id number] 05/13/2025 SN60 WF.225 / [id number] / [id number] Lens 21.5 Sn60wf - [id number] - [id number] Implanted:Qty : 1 on 12/19/2023 by Ramsey Burnett DO at OR [facility] Left: Eye IVA : SURGICAL 12/03/2024 SN60WF.2 15 / [id number] / documented as of this encounter Procedures Procedure Name Priority Date/Time Associated Diagnosis Comments FOLIC ACID Routine 05/01/2024 11:08 AM EDT Memory changes Cognitive changes documented in this encounter Results * 25-HYDROXY VITAMIN D (05/01/2024 11:08 AM EDT) 25-Hydroxy Vitamin D 33 >19 ng/mL 05/01/2024 8:02 PM EDT LABORATORY [facility] Blood Venous blood specimen / Unknown Venipuncture / Unknown 05/01/2024 11:08 AM EDT 05/01/2024 11:08 AM EDT Narrative LABORATORY [facility] - 05/01/2024 8:02 PM EDT Deficient: <20 ng/mL Insufficient: 20-29 ng/mL Recommended/Optimum:30-50 ng/mL Vitamin D intoxication is rare. If suspicious of Vitamin D toxicity, evaluation of serum Calcium and PTH is recommended. Cinthia Andrews PA-C LAB BLOOD ORD ERABLES LABORATORY [facility] [address] [place] [address] * FOLIC ACID (05/01/2024 11:08 AM EDT) Folic Acid >20.0 >4.5 ng/mL 05/01/2024 8:02 PM EDT LABORATORY [facility] Blood Venous blood specimen / Unknown Venipuncture / Unknown 05/01/2024 11:08 AM EDT 05/01/2024 11:08 AM EDT Cinthia Andrews PA-C LAB BLOOD ORD ERABLES LABORATORY [facility] [address] [place] [address] documented in this encounter Visit Diagnoses Diagnosis Memory changes- Primary Memory loss Cognitive changes Other signs and symptoms involving cognition documented in this encounter Additional Health Concerns Infection Onset Date Last Indicated Resolved Time C. difficile Rule-Out 05/01/2024 05/01/20242023 5:22 PM EDT C. difficile 05/01/2024 05/01/2024 [...] statute hierarchy) Jovita Ovalle Adult Child Health Aircraft Sheet Metal Mechanic resentative (appointed verbally by patient or by statute hierarchy) [email or web address] Care Teams Piano Regulator Inspector Relationship Specialty Start Date End Date Gregory Rausch MD [address] [address] PCP - General Family Medicine 02/12/20 documented as of this encounter
--- OUTSIDE RECORDS SUMMARY | 2024-06-05 14:38 | External Medical Summary | Summary of Care ---
Author Name Unknown Organization [facility] Address [address] [place] [address] Phone [phone] Care Team Providers Care Golf Course Ranger Name Role Phone Gregory Rausch MD Primary Care Provider [phone] Reason for Visit * Reason Onset Date Comments [facility]: Maintenance 05/07/2024 Encounter Details Date Type Department Care Team (Late st Contact Info) Description 05/07/2024 Telephone [facility], [facility] [address] [place] [address] Ebony Scherer, TIM [address] [place] [address] [facility]: Maintenance Allergies Active Allergy [...] :DM type 2, not at goal ([facility]) 3 every 15 minutes until glucose is > 100 mg/dL for hypoglycemia E11.9 100 Tab 3 07/06/2021 Active TSBTouch Verio w/Device Kit Use up to 4 [...] Capsules by mouth in the morning. Active TSBTouch Verio In Vitro Strip (Glucose Blood) Use [...] long-term current use of insulin (HCC) Inject 36 Units under the skin in the morning. 6 mL 2 03/14/2024 Active Insulin Aspart 100 UNIT/ML Injection Solution (NovoLOG)Indications :Type 2 diabetes mellitus with hemoglobin A1c goal of less than 7.0% ([facility]) Use up to 50 units per day in Omnipod. 03/31/2024 Active Omnipod 5 G6 Intro (Gen 5) Kit Use as directed. Use to delivery insulin via insulin pump 1 Kit 5 04/10/2024 Active Nystatin 097603 UNIT/GM External Powder (Nystop)Indications: Candidal intertrigo APPLY TOPICALLY TO AFFECTED AREA 3 TIMES A DAY. 60 g 1 04/14/2024 Active Qpxmcnnydj-Xcpbxxj-W affeine 50-325-40 MG Oral Capsule (Fiorinal)Indication s:Acute intractable tension-type headache Take 1 Capsule by mouth every 4 hours as needed for Headache. 30 Capsule 04/18/2024 Active Loperamide HCl 2 MG Oral Capsule (Imodium A-D) Take 1 Capsule by mouth 4 times a day as needed for Diarrhea. Active Dificid 200 MG Oral Tablet (Fidaxomicin)Indicat ions:C. difficile colitis Take 1 Tablet by mouth in the morning and 1 Tablet before bedtime. 28 Tablet 05/02/2024 Active Saccharomyces boulardii 250 MG Oral Capsule (Florastor) Take 1 Capsule by mouth in the morning and 1 Capsule before bedtime. 60 Capsule 05/06/2024 Active Vancomycin HCl 125 MG Oral Capsule (Vancocin) 125 mg orally 4 times daily for 2 wks, then 2 x/day x wk, then daily x 1 wk, then every other day for 8 wks 100 Capsule 05/06/2024 Active documented as of this encounter (statuses [...] 12/21/2016 Diabetes mellitus 01/05/2014 12/21/2016 [facility] OTHER*[id number] 01/05/2014 12/21/2016 Axillary pain 11/03/2013 12/21/2016 Obesity, [...] cath 09/201008/26/2011 12/21/2016 FOLLOWING SURGERY, UNSPECIFI ED ([facility] 08/25/2011) 08/26/2011 12/21/2016 ADVANCE DIRECTIVE INFORMATION 04/17/2011 12/21/2016 Overview: Yes, Patient instructed to provide copy of advance directive for provider to review and to be scanned into Electronic Medical Record ADVANCE DIRECTIVE INFORMATION 03/01/2011 12/21/2016 Overview: Yes, Patient instructed to provide copy of advance directive for provider to review and to be scanned into Electronic Medical Record [facility] V710 Clinical Trial*[id number] 12/22/2010 04/14/2011 S/P aortic valve replacement 12/01/2010 08/26/2011 S/P AORTIC VALVE REPLACEMENT - #25 pericardial Mc valve 11/01/2010 06/28/2018 Overview: Aortic valve replacement with #25 pericardial Mc valve, model 2800TFX, serial number [id number] (Dr. Walker) [facility] V710 Clinical Trial*[id number] 10/18/2010 11/21/2010 Type 2 diabetes mellitus wit [...] 06/07/2018,01/08/20 18,12/05/2017,06/15,10/27/2013,09/12/2013 Pneumococcal Conjugate Vacci ne, 20-valent ([id number]) 06/22/2023 Pneumococcal Polysaccharide PPV23 (Pneumovax) 01/02/2008 Seasonal [...] No 04/08/2024 Does the household have a [facility] source of income? (Household - for [...] encounter Miscellaneous Notes * Telephone Encounter - Ebony Scherer LPN - 05/07/2024 8:50 AM EDT Images from the original note were not included. [facility] Remote Patient Monitoring Unable to contact patient: Trigger type: Abnormal reading(s): Device(s) Triggered: AMC (Advanced Monitored Caregiving): Scale: Trigger priority per AMC: 150.2 Unable to reach Jovita patients daughter answered stated she was unavailable and can't come to the phone I asked daughter to please call [facility] back in regards to AMC weight documented in this encounter Plan of Treatment Upcoming Encounters Date Type Department Care Team (Late st Contact Info) Description 05/08/2024 10:00 AM EDT Home Visit [facility] [place], [facility] [address] [address] Zurdo Christina, RN [address] [address] 05/14/2024 9:00 AM EDT [facility] [address] [address] 05/15/2024 1:00 PM EDT Office Visit Pharmacy, [place] [address] [facility] [place] [address] Pharmacist1, [facility] [address] [facility] [place] [address] 06/02/2024 9:30 AM EDT Imaging Radiology [facility] [address] [facility] [place] [address] 08/12/2024 9:20 AM EST Office Visit Family Practice [facility] [address] [facility] [place] [address] Gregory Rausch MD [address] [facility] [place] [address] 10/30/2024 9:00 AM EST Office Visit Neurology [facility] [address] [facility] [place] [address] Sandy Juárez PA-C [address] [facility] [place] [address] 11/03/2024 11:00 AM EST Office Visit Sleep Disorders Ctr [facility] [address] [facility] [place] [phone] Christina Birch DO [address] [facility] [place] [address] 11/04/2024 9:30 AM EST Office Visit Gastroenterology, [facility] [address] [facility] [place] [address] T[place] [facility] [place] [address] 11/27/2024 9:40 AM EST Office Visit Nephrology, [facility] [address] [facility] [place] [address] Fidelina Baumann MD [address] [facility] [place] [address] Scheduled Procedures Name Priority Associated Diagnoses Date/Ti [...] Additional history exists CKD PHOS USE SMARTSET 36655 06/18/202405/26, 06/16/2023, 06/15/2023, Additional history exists HbA1c 08/01/2024 01/30/2024, 08/25, 07/31/2023, Additional history exists Diabetic Eye Exam 09/13/2024 09/13/2023, , 09/13/2023, Additional history exists B-12 09/18/2024 09/18/2023, 08/24, 2020, Additional history exists GFR 11/01/2024 05/01/2024, 12/23, 10/15/2023, Additional history exists Albumin/Creatinine Ratio 01/07/2025 024, 03/09/2023, 12/22/2022, Additional history exists CKD HGB USE SMARTSET 50252 01/07/202501/07, 01/08/2024, 10/15/2023, Additional history exists TSH [...] this encounter Medical Devices Implanted Type Area Wildland Firefighter Device Identifier Shelf Expiration Date Model / Serial / Lot Cath Roselia Single Lumen - [id number] Implanted:Qty : 1 on 03/12/2008 at OR [facility] Left: Chest [facility] *DO NOT USE* 07/25/2012 21-4053-24 / / [id number] Sut Steel 6 M654g - [id number] Implanted:Qty : 1 on 11/01/2010 at OR [facility] N/A: Chest DO NOT USE M654G / / Sut Steel 6 M654g - [id number] Implanted:Qty : 1 on 11/01/2010 at OR [facility] N/A: Chest DO NOT USE M654G / / Valve Tarsha Aortic [id number] - [id number] Implanted:Qty : 1 on 11/01/2010 at OR [facility] N/A: Heart [employer] 05/20/2012 2800TFX-25 / / [id number] Mesh Soft [id number] - [id number] Implanted:Qty : 1 on 10/10/2019 by Gigi Hendrickson MD at OR [facility] N/A: Abdomen CR BARD : DAVOL [id number] 05/21/2024 [id number] / / [id number] Lens 22.5 Sn60wf - [id number] - [id number] Implanted:Qty : 1 on 09/15/2020 by Renaldo Cook, Cece Acosta MD at OR [facility] Right: Eye IVA : SURGICAL [id number] 05/13/2025 SN60 WF.225 / [id number] / [id number] Lens 21.5 Sn60wf - [id number] - [id number] Implanted:Qty : 1 on 12/19/2023 by Ramsey Burnett DO at OR [facility] Left: Eye IVA : SURGICAL 12/03/2024 SN60WF.2 15 / [id number] / documented as of this encounter [...] statute hierarchy) Jovita Ovalle Adult Child Health Overlock Operator resentative (appointed verbally by patient or by statute hierarchy) [email or web address] Care Teams Golf Course Ranger Relationship Specialty Start Date End Date Gregory Rausch MD [address] [address] PCP - General Family Medicine 02/12/20 documented as of this encounter
--- OUTSIDE RECORDS SUMMARY | 2024-06-05 14:38 | External Medical Summary | Summary of Care ---
Author Name Unknown Organization [facility] Address [address] [place] [address] Phone [phone] Care Team Providers Care Frame Aligner Name Role Phone Gregory Rausch MD Primary Care Provider [phone] Reason for Visit * Reason Comments [facility]: Maintenance Encounter Details Date Type Department Care Team (Late st Contact Info) Description 05/08/2024 10:00 AM EDT Home Visit [facility], [facility] [address] [facility] [place] [address] Zurdo Christina, RN [address] [facility] [place] [address] Allergies Active Allergy Reactions Criticality Noted Date Comments Adhesive Tape 07/02/2017 Can tolerate band-aids Glycerin Other (Please comment) 03/12/2008 Topical agents with glycein-burning & itching Lactose 12/09/2014 Dairy - gas Lisinopril Cough 01/21/2010 Monosodium Glutamate Edema Other 03/12/2008 Hands and feet Penicillins Rash 11/14/2007 documented as of this encounter (statuses as of 05/08/2024) Medications Medication Sig Dispensed Refills Start Date [...] type 2, not at goal ([facility]) 3 every 15 minutes until glucose [...] with preserved ejection fraction (HFpEF) ([facility]) Take 1 Tablet by mouth in the morning and 1 Tablet before bedtime. 180 Tablet 3 01/22/2024 Active BD Pen Needle Short U/F 31G X 8 MMIndications:Type 2 diabetes mellitus with hemoglobin A1c goal of less than 7.0% ([facility]),Type 2 diabetes mellitus with stage 3a chronic kidney disease, with long-term current use of insulin ([facility]) Use with insulin 4 times daily [...] attack/stroke, protect kidney, and cholesterol 90 Tablet 01/10/2024 Active Meclizine HCl 25 MG Oral [...] goal of less than 7.0% ([facility]),Type 2 diabetes mellitus with stage 3a chronic kidney disease, with long-term current use of insulin ([facility]) Inject 36 Units under the skin in the morning. 6 mL 2 03/14/2024 Active Insulin Aspart 100 UNIT/ML Injection Solution (NovoLOG)Indications :Type 2 diabetes mellitus with hemoglobin A1c goal of less than 7.0% ([facility]) Use up to 50 units per day in Omnipod. 03/31/2024 Active Omnipod 5 G6 Intro (Gen 5) Kit Use as directed. Use to delivery insulin via insulin pump 1 Kit 5 04/10/2024 Active Nystatin 378479 UNIT/GM External Powder (Nystop)Indications: Candidal intertrigo APPLY [...] Tablet before bedtime. 28 Tablet 05/02/2024 Active Aywbhadljt-Woopkgu-K affeine 50-325-40 MG Oral Capsule (Fiorinal)Indication s:Acute [...] as of this encounter (statuses as of 05/08/2024) Active Problems Problem Noted Date Diagnosed Date [...] eye 09/28/2020 Coronary artery disease invo lving qagan tayagungin coronary artery of qagan tayagungin heart without angina pectoris 12/16/2019 Last Assessment [...] as of this encounter (statuses as of 05/08/2024) Resolved Problems Problem Noted Date Diagnosed Date [...] 12/21/2016 Diabetes mellitus 01/05/2014 12/21/2016 LEYVA RESEARCH OTHER*[id number] 01/05/2014 12/21/2016 Axillary pain 11/03/2013 12/21/2016 Obesity, [...] cath 09/201008/26/2011 12/21/2016 FOLLOWING SURGERY, UNSPECIFI ED ([facility] 08/25/2011) 08/26/2011 12/21/2016 ADVANCE DIRECTIVE INFORMATION 04/17/2011 12/21/2016 Overview: Yes, Patient instructed to provide copy of advance directive for provider to review and to be scanned into Electronic Medical Record ADVANCE DIRECTIVE INFORMATION 03/01/2011 12/21/2016 Overview: Yes, Patient instructed to provide copy of advance directive for provider to review and to be scanned into Electronic Medical Record [facility] V710 Clinical Trial*[id number] 12/22/2010 04/14/2011 S/P aortic valve replacement 12/01/2010 08/26/2011 S/P AORTIC VALVE REPLACEMENT - #25 pericardial Hernandez valve 11/01/2010 06/28/2018 Overview: Aortic valve replacement with #25 pericardial Hernandez valve, model 2800TFX, serial number [id number] (Dr. Walker) [facility] V710 Clinical Trial*[id number] 10/18/2010 11/21/2010 Type 2 diabetes mellitus wit [...] as of this encounter (statuses as of 05/08/2024) Immunizations Name Administration Dates Next Due COVID-19 mRNA, LNP-s, No Pre serve, 2-Dose Series (Moderna) 10/25/2021,02/16/2021,01/18/2021 HEP A - Hepatitis A (Adult > 18 yrs) 06/07/2018, 12/05/2017 Hepatitis B, 20+ yrs 06/07/2018,01/08/20 18,12/05/2017,06/15,10/27/2013,09/12/2013 Pneumococcal Conjugate Vacci ne, 20-valent (Ulfveef13) 06/22/2023 Pneumococcal Polysaccharide PPV23 (Pneumovax) 01/02/2008 Seasonal [...] Sign Reading Time Taken Comments Blood Pressure 118/74 05/08/2024 10:40 AM EDT Pulse 84 05/08/2024 10:40 AM EDT Temperature 37 C (98.6 F) 05/08/2024 10:40 AM EDT Respiratory Rate 16 05/08/2024 10:40 AM EDT Oxygen Saturation 96% 05/08/2024 10:40 AM EDT Inhaled Oxygen Concentration - - Weight - [...] as of this encounter Progress Notes * Zurdo Christina, PRABHA - 05/08/2024 1:49 PM EDT Images from the original note were not included. [facility] Waiter/Waitress Cabin Class Monthly Visit Date: 05/08/2024 Time: 1:49 PM Name: Jovita Rose : 1960 Current Concerns: Situation: Pt seen today by [facility] associate biological sales for routine follow-up visit. 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 Assessment: Pt presents sitting on couch with caregiver Pt apartment is cluttered with boxes of belongings stacked everywhere, apartment is malodorous Pt reports that she has to be moved out of current apartment by May 24, will stay with children for 2 days and is able to move into new apartment at [facility] on May 25 Pt reports her sister , and her son is picking her up today to travel 5 hrs via car to service Pt C. Diff positive on day 3 of PO Vancomycin, Fidaxomicin Having "so many" liquid BM daily, reports >5 BM/day Pt anxious stating multiple reasons: -C. Diff + and reports has had to change clothing 3x already this AM due to bowel incontinence -Is fearful that she will pass C. Diff onto son's 4 month old baby -Is fearful that she will have episode of bowel incontinence in son's [facility] during travels today Pt does have depends and pads, this RN recommended pt wear depend and apply pad to inside for extraabsorption Encouraged pt to wash hands with soap and water, use bleach disinfectant wipes to wipe down any shared surfaces Pt and CG verbalized understanding VS WNL Heart R&R regular Lungs clear bilaterally Free of edema Per pt report: Voiding without difficulty Appetite good Taking fluids well Denies increased SOB, CP, cough Denies blurry vision, shaking Weights via [facility] scale: DM2: Follows with [facility] [place] Next appt 05/15 Has Omnipod and Dexcom but not using currently per pt Reports BS have been ranging 200-350 range Denies symptoms of hyperglycemia Physical Exam: BP 118/74 (BP Site: Right Arm, BP Position: Sitting, BP Cuff Size: Regular) | Pulse 84 | Temp 37 C (98.6 F) (Tympanic) | Resp 16 | LMP 04/07/2011 | SpO2 96% Pain 0 Physical Exam Cardiovascular: Rate and Rhythm: Normal rate and regular rhythm. Pulmonary: Effort: Pulmonary effort is normal. Breath sounds: Normal breath sounds. Abdominal: General: Bowel sounds are normal. Palpations: Abdomen is soft. Skin: General: Skin is warm and dry. Capillary Refill: Capillary refill takes 2 to 3 seconds. Neurological: General: No focal deficit present. Mental Status: She is alert. Psychiatric: Behavior: Behavior normal. Problems/Symptoms: Review of Systems Constitutional: Negative. HENT: Negative. Eyes: Negative. Respiratory: Negative. Negative for shortness of breath. Cardiovascular: Negative for leg swelling. Gastrointestinal: Positive for diarrhea. Negative for abdominal distention and abdominal pain. Genitourinary: Negative. Musculoskeletal: Positive for gait problem. Skin: Negative. Psychiatric/Behavioral: The patient is nervous/anxious. Medication Reconciliation: (See medication list) Does patient take medications as ordered: Yes MAH-10 Completed this Visit: No. Routine visit and No falls since last visit Advanced Care Planning: POLST. Reinforcement/Education: Safety Action Plan: Create a fall proof home. Clear floors of clutter, loose wires, throw [...] handrail. Keep sidewalks and steps in good repair. Keep steps and sidewalks free of snow and ice. Use aids to support and prevent falls. If you have poor balance or have [...] Reinforced medication regimen. Timing., Dosing., and Purspose. Recommendation/Treatment/Plan: Continue medications as prescribed- no changes made as a result of today's visit Keep upcoming medical appointments; appointment dates and times reviewed with patient at time of visit Fall and safety precautions Fluids encouraged Low Na diet Elevate BLE PRN for edema [facility] clinic for DM management Check blood sugars QID Daily wts via [facility] Has skilled nursing case manager Continue Vanc and Fidaxomicin Wash hands with soap and water, use bleach disinfectant wipes to clean shared surfaces Home Interventions Provided: Reinforced current Plan of Care, including self-management and medication regimen Patient's 'Red Flags': Wt gain of 3 lbs in 24 hrs or 5 lbs in one week Increase in LE edema Increased SOB Patient Needs to Remember: Call [facility] at [phone] with any red flags, changes in condition, or concerns. Referrals Needed: N/A Follow Up: Is there cellular connectivity/connectivity in the home? Yes Does the patient have internet in the home? No Patient encouraged to call the intake phone number for all urgent but not emergent issues. Is the patient new to [facility] within the last 30 days? No, Assess appropriateness for upcoming telehealth visits. Cancel telehealth visits & schedule home visit with care steamer blocker(s)as indicated. Provider is in agreement with Plan of Care: Yes Scheduled to follow up with patient in 5 weeks, 06/11/24. Zurdo Christina RN 05/08/2024 1:49 PM documented in this encounter Plan of Treatment Upcoming Encounters Date Type Department Care Team (Late st Contact Info) Description 05/14/2024 9:00 AM EDT Imaging [facility] [address] [place] [address] 05/15/2024 1:00 PM EDT Office Visit Pharmacy, [facility] [address] [facility] [place] [address] Pharmacist1, [facility] [address] [facility] [place] [address] 06/02/2024 9:30 AM EDT Imaging Radiology [facility] [address] [place] [address] 06/11/2024 2:30 PM EDT Home Visit [facility], [facility] [address] [place] [address] Zurdo Christina RN [address] [place] [address] 08/12/2024 9:20 AM EST Office Visit Family Practice [facility] [address] [place] [address] Gregory Rausch MD [address] [place] [address] 10/30/2024 9:00 AM EST Office Visit Neurology [facility] [address] [place] [address] Sandy Juárez PA-C [address] [facility] [place] [address] 11/03/2024 11:00 AM EST Office Visit [facility] [address] [facility] [place] [id number] Christina Birch DO [address] [place] [address] 11/04/2024 9:30 AM EST Office Visit Gastroenterology, [facility] [address] [facility] [place] [address] Tia Taylor CRNP [address] [facility] [place] [address] 11/27/2024 9:40 AM EST Office Visit Nephrology, [facility] [address] [facility] [place] [address] Fidelina Baumann MD [address] [facility] [place] [address] Scheduled Procedures Name Priority Associated Diagnoses Date/Ti [...] Additional history exists CKD PHOS USE SMARTSET 57007 06/18/202405/26, 06/16/2023, 06/15/2023, Additional history exists HbA1c 08/01/2024 01/30/2024, 08/25, 07/31/2023, Additional history exists Diabetic Eye Exam 09/13/2024 09/13/2023, , 09/13/2023, Additional history exists B-12 09/18/2024 09/18/2023, 08/24, 2020, Additional history exists GFR 11/01/2024 05/01/2024, 12/23, 10/15/2023, Additional history exists Albumin/Creatinine Ratio 01/07/2025 024, 03/09/2023, 12/22/2022, Additional history exists CKD HGB USE SMARTSET 79159 01/07/202501/07, 01/08/2024, 10/15/2023, Additional history exists TSH [...] this encounter Medical Devices Implanted Type Area Ehs Manager Device Identifier Shelf Expiration Date Model / Serial / Lot Cath Roselia Single Lumen - [id number] Implanted:Qty : 1 on 03/12/2008 at OR [facility] Left: Chest [facility] *DO NOT USE* 07/25/2012 21-4053-24 / / [id number] Sut Steel 6 M654g - [id number] Implanted:Qty : 1 on 11/01/2010 at OR [facility] N/A: Chest DO NOT USE M654G / / Sut Steel 6 M654g - [id number] Implanted:Qty : 1 on 11/01/2010 at OR [facility] N/A: Chest DO NOT USE M654G / / Valve Tarsha Aortic [id number] - [id number] Implanted:Qty : 1 on 11/01/2010 at OR [facility] N/A: Heart Compliance ControlCINanosolar DANIEL 05/20/2012 2800TFX-25 / / [id number] Mesh Soft [id number] - [id number] Implanted:Qty : 1 on 10/10/2019 by Gigi Hendrickson MD at [facility] N/A: Abdomen CR BARD : DAVOL [id number] 05/21/2024 [id number] / / [id number] Lens 22.5 Sn60wf - [id number] - [id number] Implanted:Qty : 1 on 09/15/2020 by Cece Roland MD at OR [facility] Right: Eye IVA : SURGICAL [id number] 05/13/2025 SN60 WF.225 / [id number] / [id number] Lens 21.5 Sn60wf - [id number] - [id number] Implanted:Qty : 1 on 12/19/2023 by Ramsey Burnett DO at OR [facility] Left: Eye IVA : SURGICAL 12/03/2024 SN60WF.2 15 / [id number] / documented as of this encounter [...] statute hierarchy) Jovita Ovalle Adult Child Health Furniture Assembler resentative (appointed verbally by patient or by statute hierarchy) Care Teams Frame Aligner Relationship Specialty Start Date End Date Gregory Rausch MD [address] [place] [address] PCP - General Family Medicine 02/12/20 documented as of this encounter
--- OUTSIDE RECORDS SUMMARY | 2024-06-05 14:39 | External Medical Summary | Summary of Care ---
Author Name Unknown Organization [facility] Address [address] [place] [address] Phone [phone] Care Team Providers Care Vendor Relationship Manager Name Role Phone Gregory Rausch MD Primary Care Provider [phone] Reason for Visit * Reason Onset Date Comments Advice 05/02/2024 Encounter Details Date Type Department Care Team (Late st Contact Info) Description 05/02/2024 Telephone Family Practice [facility] [address] [place] [address] Gregory Rausch MD [address] [place] [address] Advice Allergies Active Allergy Reactions Criticality Noted Date Comments Adhesive Tape 07/02/2017 Can tolerate band-aids Glycerin Other (Please comment) 03/12/2008 Topical agents with glycein-burning & itching Lactose 12/09/2014 Dairy - gas Lisinopril Cough 01/21/2010 Monosodium Glutamate Edema Other 03/12/2008 Hands and feet Penicillins Rash 11/14/2007 documented as of this encounter (statuses as of 05/06/2024) Medications Medication Sig Dispensed Refills Start Date [...] (Glucose)Indications :DM type 2, not at goal ([facility]) 3 every 15 minutes until [...] with preserved ejection fraction (HFpEF) ([facility]) Take 1 Tablet by mouth in the morning and 1 Tablet before bedtime. 180 Tablet 3 01/22/2024 Active BD Pen Needle Short U/F 31G X 8 MMIndications:Type 2 diabetes mellitus with hemoglobin A1c goal of less than 7.0% ([facility]),Type 2 diabetes mellitus with stage 3a chronic kidney disease, with long-term current use of insulin ([facility]) Use with insulin 4 times [...] the morning. 16 g 3 02/07/2024 Active Saccharomyces boulardii 250 MG Oral Capsule (Florastor) Take 1 Capsule by mouth in the morning and 1 Capsule before bedtime. 60 Capsule 02/07/2024 Active Magnesium Oxide -Mg Supplement 400 (240 Mg) MG Oral Tablet (Mag-Ox)Indications: HTN, goal below 130/80 One tablet by mouth daily in the morning 90 Tablet 3 03/07/2024 Active Tresiba FlexTouch 200 UNIT/ML Subcutaneous Solution Pen-injector (Insulin Degludec)Indications :Type 2 diabetes mellitus with hemoglobin A1c goal of less than 7.0% ([facility]),Type 2 diabetes mellitus with stage 3a chronic kidney disease, with long-term current use of insulin ([facility]) Inject 36 Units under the skin in the morning. 6 mL 2 03/14/2024 Active Insulin Aspart 100 UNIT/ML Injection Solution (NovoLOG)Indications :Type 2 diabetes mellitus with hemoglobin A1c goal of less than 7.0% ([facility]) Use up to 50 units per day in Omnipod. 03/31/2024 Active Omnipod 5 G6 Intro (Gen 5) Kit Use as directed. Use to delivery insulin via insulin pump 1 Kit 5 04/10/2024 Active Nystatin 982751 UNIT/GM External Powder (Nystop)Indications: Candidal intertrigo APPLY TOPICALLY TO AFFECTED AREA 3 TIMES A DAY. 60 g 1 04/14/2024 Active Ukbhuqszgr-Nmdgowd-A affeine 50-325-40 MG Oral Capsule (Fiorinal)Indication s:Acute [...] Tablet before bedtime. 28 Tablet 05/02/2024 Active Vancomycin HCl 125 MG Oral Capsule (Vancocin) 125 mg orally 4 times daily for 2 wks, then 2 x/day x wk, then daily x 1 wk, then every other day for 8 wks 100 Capsule 05/06/2024 Active documented as of this encounter (statuses as of 05/06/2024) Active Problems Problem Noted Date Diagnosed Date [...] eye 09/28/2020 Coronary artery disease invo lving ramona coronary artery of ramona heart without angina pectoris 12/16/2019 Last Assessment [...] as of this encounter (statuses as of 05/06/2024) Resolved Problems Problem Noted Date Diagnosed Date [...] 12/21/2016 Diabetes mellitus 01/05/2014 12/21/2016 LEYVA RESEARCH OTHER*[id number] 01/05/2014 12/21/2016 Axillary pain 11/03/2013 12/21/2016 Obesity, [...] FOLLOWING SURGERY, UNSPECIFI ED ([facility] BSO 08/25/2011) 08/26/2011 12/21/2016 ADVANCE DIRECTIVE INFORMATION 04/17/2011 12/21/2016 Overview: Yes, Patient instructed to provide copy of advance directive for provider to review and to be scanned into Electronic Medical Record ADVANCE DIRECTIVE INFORMATION 03/01/2011 12/21/2016 Overview: Yes, Patient instructed to provide copy of advance directive for provider to review and to be scanned into Electronic Medical Record [facility] V710 Clinical Trial*[id number] 12/22/2010 04/14/2011 S/P aortic valve replacement 12/01/2010 08/26/2011 S/P AORTIC VALVE REPLACEMENT - #25 pericardial Mc valve 11/01/2010 06/28/2018 Overview: Aortic valve replacement with #25 pericardial Mc valve, model 2800TFX, serial number [id number] (Dr. Walker) [facility] V710 Clinical Trial*[id number] 10/18/2010 11/21/2010 Type 2 diabetes mellitus wit [...] as of this encounter (statuses as of 05/06/2024) Immunizations Name Administration Dates Next Due COVID-19 mRNA, LNP-s, No Pre serve, 2-Dose Series (Moderna) 10/25/2021,02/16/2021,01/18/2021 HEP A - Hepatitis A (Adult > 18 yrs) 06/07/2018, 12/05/2017 Hepatitis B, 20+ yrs 06/07/2018,01/08/20 18,12/05/2017,06/15,10/27/2013,09/12/2013 Pneumococcal Conjugate Vacci ne, 20-valent ([id number]) 06/22/2023 Pneumococcal Polysaccharide PPV23 (Pneumovax) 01/02/2008 Seasonal [...] Miscellaneous Notes * Telephone Encounter - Cindi Farmer PHARM Tech - 05/06/2024 9:11 AM EDT Daughter calling back. Informed her of the note above. She understood. Cindi Dhillon Hairspring Ii Inspector II [facility] 05/06/2024 9:12 AM * Telephone Encounter - Padma Sanchez CMA - 05/06/2024 9:09 AM EDT LM with pts daughter to call the clinic RE: HIRA note. * Telephone Encounter - Tia Taylor CRNP - 05/06/2024 8:46 AM EDT If she already started the Dificid then finish it and follow w Vancomycin 125mg 4x/day x 10 days, 2x/day x 1 wk, daily x 1 wk then every other day x 8 weeks. If did not start the dificid then can go straight to the Vancomycin. * Telephone Encounter - Gregory Rausch MD - 05/05/2024 3:58 PM EDT GI wants to give her a long vanco taper Will defer to them. * Telephone Encounter - Ariana Foster CPhT - 05/05/2024 10:43 AM EDT Pt following up with if the message was reviewed. Thank you, Ariana Foster CPhT Car Shifter II [facility] ([facility]) 05/05/2024,10:44 AM * Telephone Encounter - Shayna Bullard LPN - 05/05/2024 9:43 AM EDT Daughter calling to check if GI has reviewed previous message. She is inquiring if Dificid is the correct medication? * Telephone Encounter - Nataly Rodriguez OSA - 05/05/2024 9:39 AM EDT Reason for call: c-diff Caller was transferred to [facility] at the nurse line. * Telephone Encounter - Gayle Duncan LPN - 05/02/2024 3:56 PM EDT Will address diarrhea once C-diff and GI path results are back. If C-diff (+) will need a long Vanco taper. Results competed, PCP send in medicaiton Please advise if this is correct medication as GI saw pt yesterday * Telephone Encounter - Gregory Rausch MD - 05/02/2024 3:48 PM EDT C diff is back. Dificid sent to pharmacy for 2 weeks. documented in this encounter Plan of Treatment Upcoming Encounters Date Type Department Care Team (Late st Contact Info) Description 05/08/2024 10:00 AM EDT Home Visit [facility] at [address] [place] [address] Zurdo Christina, RN [address] [place] [address] 05/14/2024 9:00 AM EDT Imaging Radiology [facility] 1st [facility] [address] [place] [address] 05/15/2024 1:00 PM EDT Office Visit Pharmacy, [facility] [address] [facility] [place] [address] Pharmacist1, [facility] [address] [facility] [place] [address] 06/02/2024 9:30 AM EDT Imaging Radiology [facility] [address] [place] [address] 08/12/2024 9:20 AM EST Office Visit Family Practice [facility] [address] [place] [address] Gregory Rausch MD [address] [place] [address] 10/30/2024 9:00 AM EST Office Visit Neurology [facility] [address] [place] [address] Sandy Juárez PA-C 21 [facility] [place] [address] 11/03/2024 11:00 AM EST Office Visit Sleep Disorders Ctr [facility] [address] [place] [phone] Christina Birch DO [address] [address] 11/04/2024 9:30 AM EST Office Visit Gastroenterology, [facility] [address] [place] [address] Tia Taylor CRNP [address] [place] [address] 11/27/2024 9:40 AM EST Office Visit Nephrology, [place] [address] [facility] [place] [address] Fidelina Baumann MD [address] [facility] [address] [place] [address] Scheduled Procedures Name Priority Associated Diagnoses Date/Ti [...] Additional history exists CKD PHOS USE SMARTSET 61724 06/18/202405/26, 06/16/2023, 06/15/2023, Additional history exists HbA1c 08/01/2024 01/30/2024, 08/25, 07/31/2023, Additional history exists Diabetic Eye Exam 09/13/2024 09/13/2023, , 09/13/2023, Additional history exists B-12 09/18/2024 09/18/2023, 08/24, 2020, Additional history exists GFR 11/01/2024 05/01/2024, 12/23, 10/15/2023, Additional history exists Albumin/Creatinine Ratio 01/07/2025 024, 03/09/2023, 12/22/2022, Additional history exists CKD HGB USE SMARTSET 91425 01/07/202501/07, 01/08/2024, 10/15/2023, Additional history exists TSH [...] this encounter Medical Devices Implanted Type Area Thermoplastic Technician Device Identifier Shelf Expiration Date Model / Serial / Lot Cath Roselia Single Lumen - [id number] Implanted:Qty : 1 on 03/12/2008 at OR [facility] Left: Chest [facility] *DO NOT USE* 07/25/2012 21-4053-24 / / [id number] Sut Steel 6 M654g - [id number] Implanted:Qty : 1 on 11/01/2010 at OR [facility] N/A: Chest DO NOT USE M654G / / Sut Steel 6 M654g - [id number] Implanted:Qty : 1 on 11/01/2010 at OR [facility] N/A: Chest DO NOT USE M654G / / Valve Tarsha Aortic [id number] - [id number] Implanted:Qty : 1 on 11/01/2010 at OR [facility] N/A: Heart [employer]EL 05/20/2012 2800TFX-25 / / [id number] Mesh Soft [id number] - [id number] Implanted:Qty : 1 on 10/10/2019 by Gigi Hendrickson MD at [place] [facility] N/A: Abdomen CR BARD : DAVOL [id number] 05/21/2024 [id number] / / [id number] Lens 22.5 Sn60wf - [id number] - [id number] Implanted:Qty : 1 on 09/15/2020 by Renaldo Cook, Cece Acosta MD at [facility] Right: Eye IVA : SURGICAL [id number] 05/13/2025 SN60 WF.225 / [id number] / [id number] Lens 21.5 Sn60wf - [id number] - [id number] Implanted:Qty : 1 on 12/19/2023 by Ramsey Burnett DO at OR [facility] Left: Eye IVA : SURGICAL 12/03/2024 SN60WF.2 15 / [id number] / documented as of this encounter Visit Diagnoses Diagnosis C. difficile colitis- Primary Intestinal infection due to clostridium difficile documented in this encounter Additional Health Concerns [...] statute hierarchy) Jovita Ovalle Adult Child Health Cutter Grinder resentative (appointed verbally by patient or by statute hierarchy) [email or web address] Care Teams Vendor Relationship Manager Relationship Specialty Start Date End Date Gregory Rausch MD [address] [place] [address] PCP - General Family Medicine 02/12/20 documented as of this encounter
--- OUTSIDE RECORDS SUMMARY | 2024-06-05 14:39 | External Medical Summary | Summary of Care ---
Author Name Unknown Organization [facility] Address [address] [place] [address] Phone [phone] Care Team Providers Care Tipple Oiler Name Role Phone Gregory Rausch MD Primary Care Provider [phone] Reason for Visit * Reason Onset Date Comments Med Request 05/05/2024 Encounter Details Date Type Department Care Team (Late st Contact Info) Description 05/05/2024 Telephone Family Practice [facility] [address] [place] [address] Gregory Rausch MD [address] [place] [address] Med Request Allergies Active Allergy Reactions Criticality Noted Date [...] (Glucose)Indication s:DM type 2, not at goal ([facility]) 3 every 15 minutes until glucose [...] failure with preserved ejection fraction (HFpEF) ([facility]) Take 1 Tablet by mouth in the morning and 1 Tablet before bedtime. 180 Tablet 3 01/22/2024 Active BD Pen Needle Short U/F 31G X 8 MMIndications:Type 2 diabetes mellitus with hemoglobin A1c goal of less than 7.0% ([facility]),Type 2 diabetes mellitus with stage 3a chronic kidney disease, with long-term current use of insulin ([facility]) Use with insulin 4 times [...] A1c goal of less than 7.0% ([facility]),Type 2 diabetes mellitus with stage 3a chronic kidney disease, with long-term current use of insulin ([facility]) Inject 36 Units under the skin in the morning. 6 mL 2 03/14/2024 Active Insulin Aspart 100 UNIT/ML Injection Solution (NovoLOG)Indication s:Type 2 diabetes mellitus with hemoglobin A1c goal of less than 7.0% ([facility]) Use up to 50 units per day in Omnipod. 03/31/2024 Active Omnipod 5 G6 Intro (Gen 5) Kit Use as directed. Use to delivery insulin via insulin pump 1 Kit 5 04/10/2024 Active Nystatin 672124 UNIT/GM External Powder (Nystop)Indications :Candidal intertrigo APPLY TOPICALLY TO AFFECTED AREA 3 TIMES A DAY. 60 g 1 04/14/2024 Active Butalbital-Aspirin- Caffeine 50-325-40 MG Oral Capsule [...] 1 Capsule before bedtime. 60 Capsule 02/07/2024 05/05/20 24 Discontinu ed(Refill) documented as of [...] eye 09/28/2020 Coronary artery disease invo lving morongo coronary artery of morongo heart without angina pectoris 12/16/2019 Last Assessment [...] #1 - - Cervical spinal stenosis 11/11/2018 07/ Body mass index (BMI) of 45. 0 [...] 12/21/2016 Diabetes mellitus 01/05/2014 12/21/2016 LEYVA RESEARCH OTHER*[id number] 01/05/2014 12/21/2016 Axillary pain 11/03/2013 12/21/2016 Obesity, [...] 12/21/2016 FOLLOWING SURGERY, UNSPECIFI ED ([facility] BSO 08/25/2011) 08/26/2011 12/21/2016 ADVANCE [...] [facility] V710 Clinical Trial*[id number] 12/22/2010 04/14/2011 S/P aortic valve replacement 12/01/2010 08/26/2011 S/P AORTIC VALVE REPLACEMENT - #25 pericardial Mc valve 11/01/2010 06/28/2018 Overview: Aortic valve replacement with #25 pericardial Mc valve, model 2800TFX, serial number [id number] (Dr. Walker) [facility] V710 Clinical Trial*[id number] 10/18/2010 11/21/2010 Type 2 diabetes mellitus wit [...] 06/07/2018,01/08/20 18,12/05/2017,06/15,10/27/2013,09/12/2013 Pneumococcal Conjugate Vacci ne, 20-valent ([id number]) 06/22/2023 Pneumococcal Polysaccharide PPV23 (Pneumovax) 01/02/2008 Seasonal [...] No 04/08/2024 Does the household have a [facility] source of income? (Household - for [...] encounter Miscellaneous Notes * Telephone Encounter - Tia Taylor CRNP - 05/06/2024 12:59 PM EDT Addressed in another thread and asked Vidya to contact the pt/daughter. Plan is - if already started the Dificid finish then follow w Vancomycin taper. If didn't start theDificid then no need to fill the Dificid, can go straight to the Vanco taper. If pt/daughter are concerned the the Vanco has not been effective in the past, please reassure her that research shows that Dificid has very slightly better cure rates but the recurrence rate is lower with a long vancomycin taper. Prescribed to [facility] this mroning at 8:54 AM. (Vanco 125 mg orally 4 times daily for 2 wks, then 2 x/day x wk, then daily x 1 wk, then every other day for 8 wks.) * Telephone Encounter - Brisa Perry OSA - 05/06/2024 10:05 AM EDT Tia cosby advise DANYELLE Issa 05/06/2024 10:05 AM * Telephone Encounter - Debo Shaffer OSA - 05/05/2024 11:55 AM EDT Pts daughter and POGema Hussein is calling in regarding the above call... Jovita states the C-Diff came back positive and they PCP did call in meds for 2 weeks again. Jovita is concerned because it does take care of the infection but it comes back weeks later. So she is unsure if its the correct treatment plan for her due to this. PCP did reach out to [facility] to see if there was a different way to handle this or a better treatment plan for her. Jovita has not heard back from them since then. Jovita and PT is leaving to go to and its a [address] alone[address] Jovita was checking in on this to attempt to get started on this new treatment plan if possible. Please advise and call Jovtia back with any questions or concerns * Telephone Encounter - Ariana Foster CPhT - 05/05/2024 10:54 AM EDT Patient requesting refills for Vancomycin HCl 250 MG Oral Capsule . Upon chart review, medication is listed as discontinued, with discontinuation reason as "12/03/23". Please advise if you wish to continue this therapy for the patient. Pt stating she takes this medication 1C PO Q6H. Thank you, Ariana Foster CPhT Physical Chemistry Professor II [facility] ([facility]) 05/05/2024,10:54 AM documented in this encounter Plan of Treatment Upcoming Encounters Date Type Department Care Team (Late st Contact Info) Description 05/08/2024 10:00 AM EDT Home Visit [place], [facility] [address] [place] [address] Zurdo Christina, PRABHA [address] [place] [address] 05/14/2024 9:00 AM EDT Imaging [facility]iology [facility] [address] [place] [address] 05/15/2024 1:00 PM EDT Office Visit Pharmacy, [place] [address] [facility] [place] [place] [address] Pharmacist1, [facility] [address] [facility] [place] [address] 06/02/2024 9:30 AM EDT Imaging Radiology [facility] [address] [facility] [place] [address] 08/12/2024 9:20 AM EST Office Visit Family Practice [facility] [address] [facility] [place] [address] [facility] MD [address] [facility] [place] [address] 10/30/2024 9:00 AM EST Office Visit Neurology [facility] [address] [place] [address] Sandy Juárez PA-C [facility] [place] [address] 11/03/2024 11:00 AM EST Office Visit Sleep Disorders Ctr [facility] [address] [facility] [place] [phone] Christina Birch DO 132 [place] [address] 11/04/2024 9:30 AM EST Office Visit Gastroenterology, [facility] [address] [facility] [place] [address] Tia Taylor CRNP 132 [place] [address] 11/27/2024 9:40 AM EST Office Visit Nephrology, [facility] [address] [facility] [place] [address] Fidelina Baumann MD [address] [facility] [place] [address] Scheduled Procedures Name Priority Associated Diagnoses Date/Ti [...] Additional history exists CKD PHOS USE SMARTSET 82194 06/18/202405/26, 06/16/2023, 06/15/2023, Additional history exists HbA1c 08/01/2024 01/30/2024, 08/25, 07/31/2023, Additional history exists Diabetic Eye Exam 09/13/2024 09/13/2023, , 09/13/2023, Additional history exists B-12 09/18/2024 09/18/2023, 08/24, 2020, Additional history exists GFR 11/01/2024 05/01/2024, 12/23, 10/15/2023, Additional history exists Albumin/Creatinine Ratio 01/07/2025 024, 03/09/2023, 12/22/2022, Additional history exists CKD HGB USE SMARTSET 93804 01/07/202501/07, 01/08/2024, 10/15/2023, Additional history exists TSH [...] this encounter Medical Devices Implanted Type Area Art Critic Device Identifier Shelf Expiration Date Model / Serial / Lot Cath Roselia Single Lumen - [id number] Implanted:Qty : 1 on 03/12/2008 at OR [facility] Left: Chest [employer] *DO NOT USE* 07/25/2012 21-4053-24 / / [id number] Sut Steel 6 M654g - [id number] Implanted:Qty : 1 on 11/01/2010 at OR [facility] N/A: Chest DO NOT USE M654G / / Sut Steel 6 M654g - [id number] Implanted:Qty : 1 on 11/01/2010 at OR [facility] N/A: Chest DO NOT USE M654G / / Valve Tarsha Aortic [id number] - [id number] Implanted:Qty : 1 on 11/01/2010 at OR [facility] N/A: Heart [employer] 05/20/2012 2800TFX-25 / / [id number] Mesh Soft [id number] - [id number] Implanted:Qty : 1 on 10/10/2019 by Gigi Hendrickson MD [place] [facility]A: Abdomen CR BARD : DAVOL [id number] 05/21/2024 [id number] / / [id number] Lens 22.5 Sn60wf - [id number] - [id number] Implanted:Qty : 1 on 09/15/2020 by Renaldo Cook, Cece Acosta MD at OR [facility] Right: Eye IVA : SURGICAL [id number] 05/13/2025 SN60 WF.225 / [id number] / [id number] Lens 21.5 Sn60wf - [id number] - [id number] Implanted:Qty : 1 on 12/19/2023 by Ramsey Burnett DO at OR [facility] Left: Eye IVA : SURGICAL 12/03/2024 SN60WF.2 15 / [id number] / documented as of this encounter [...] statute hierarchy) Jovita Ovalle Adult Child Health Soft Top Installer resentative (appointed verbally by patient or by statute hierarchy) [email or web address] Care Teams Tipple Oiler Relationship Specialty Start Date End Date Gregory Rausch MD [address] [place] [address] PCP - General Family Medicine 02/12/20 documented as of this encounter
--- OUTSIDE RECORDS SUMMARY | 2024-06-05 14:39 | External Medical Summary | Summary of Care ---
Author Name Unknown Organization [facility] Address [address] [place] [address] Phone [phone] Care Team Providers Care Project Consultant Name Role Phone Gregory Rausch MD Primary Care Provider [phone] Reason for Visit * Reason Onset Date Comments Med Request 05/05/2024 Advice 05/05/2024 Medication Problem 05/05/2024 Encounter Details Date Type Department Care Team (Late st Contact Info) Description 05/05/2024 Telephone Family Practice [facility] [address] [facility] [place] [address] Gregory Rausch MD [address] [facility] [address] Med Request; Advice; Medication Problem Allergies Active Allergy Reactions Criticality Noted Date [...] type 2, not at goal ([facility]) 3 every 15 minutes until glucose is > 100 mg/dL for hypoglycemia E11.9 100 Tab 3 07/06/2021 Active COMPS.comTouch Verio w/Device Kit Use up to 4 times a day E11.9 1 Kit 02/10/2022 Active COMPS.comTouch Delica Lancets 33G TEST 4 TIMES DAILY [...] Capsules by mouth in the morning. Active COMPS.comTouch Verio In Vitro Strip (Glucose Blood) Use [...] use of insulin ([facility]) Inject 36 Units under the skin in [...] pump 1 Kit 5 04/10/2024 Active Nystatin 494411 UNIT/GM External Powder (Nystop)Indications :Candidal intertrigo APPLY [...] Capsule before bedtime. 60 Capsule 05/06/2024 Active Saccharomyces boulardii 250 MG Oral Capsule [...] eye 09/28/2020 Coronary artery disease invo lving [place] coronary artery of [place] heart without angina pectoris 12/16/2019 Last Assessment [...] 12/21/2016 Diabetes mellitus 01/05/2014 12/21/2016 LEYVA RESEARCH OTHER*[id number] 01/05/2014 12/21/2016 Axillary pain 11/03/2013 12/21/2016 Obesity, [...] to be scanned into Electronic Medical Record [facility] V710 Clinical Trial*[id number] 12/22/2010 04/14/2011 S/P aortic valve replacement 12/01/2010 08/26/2011 S/P AORTIC VALVE REPLACEMENT - #25 pericardial Hernandez valve 11/01/2010 06/28/2018 Overview: Aortic valve replacement with #25 pericardial Hernandez valve, model 2800TFX, serial number [id number] (Dr. Walker) [facility] V710 Clinical Trial*[id number] 10/18/2010 11/21/2010 Type 2 diabetes mellitus wit [...] 06/07/2018,01/08/20 18,12/05/2017,06/15,10/27/2013,09/12/2013 Pneumococcal Conjugate Vacci ne, 20-valent ([id number]) 06/22/2023 Pneumococcal Polysaccharide PPV23 (Pneumovax) 01/02/2008 Seasonal [...] Telephone Encounter - Rufina Sinha LPN - 05/06/2024 10:56 AM EDT Tia Taylor CRNP 05/06/24 8:54 AM Note If she already started the Dificid then finish it and follow w Vancomycin 125mg 4x/day x 10 days, 2x/day x 1 wk, daily x 1 wk then every other day x 8 weeks. If did not start the dificid then can go straight to the Vancomycin. Returned daughter Jovita call-- Confirmed that she is aware of message from GI. She voiced understanding. No further questions at this point. * Telephone Encounter - Alejandro Mccarthy OSA - 05/06/2024 8:54 AM EDT Jovita called in regarding waiting on a call back regarding a prescription her mom was taking Dificid 200 MG Oral Tablet (Fidaxomicin) [[id number]] (Order [id number]). Lease follow up with Jovita * Telephone Encounter - Briseida Kang LPN - 05/05/2024 2:34 PM EDT Did you pend patient's preferred pharmacy and medication before forwarding?yes Pharmacy: [id number] [address] [facility] Pending Prescriptions: Disp Refills Saccharomyces boulardii 250 MG Oral Capsu*60 Cap*0 Sig: Take 1 Capsule by mouth in the morning and 1 Capsule before bedtime. Doxycycline Hyclate 100 MG Oral Capsule 20 Cap*0 Sig: Take 1 Capsule by mouth in the morning and 1 Capsule before bedtime. Until gone.. Last Visit: 03/17/2024 (in office), 09/12/2023 (telemedicine) Next Visit: 08/12/2024 If no future appointments scheduled, and last appointment is greater than a year ago, please schedule patient for a follow-up appointment Last date the medication was ordered: 02/13/24 Is this request for a controlled substance?No [...] 12/09/2019 01:49 PM * Telephone Encounter - Ariana Foster CPhT - 05/05/2024 10:49 AM EDT Patient calling to request a refill on Probiotic (Lactobacillus) Oral Capsule . Medication was lastprescribed by Nephrology but patient is asking if PCP can take over the medication. Please advise if this is appropriate and send to [id number] [address] if agreeable. Thank you, Ariana Foster CPhT Ammunition Officer II [facility] ([facility]) 05/05/2024,10:49 AM documented in this encounter Plan of Treatment Upcoming Encounters Date Type Department Care Team (Late st Contact Info) Description 05/08/2024 10:00 AM EDT Home Visit [facility] [address] [place] [address] Zurdo Christina, PRABHA [address] [place] [address] 05/14/2024 9:00 AM EDT Imaging Radiology [facility] 1st Floor, [place] [address] [place] [address] 05/15/2024 1:00 PM EDT Office Visit Pharmacy, [facility] [address] [facility] [place] [address] Pharmacist1, [facility] [address] [place] [address] 06/02/2024 9:30 AM EDT Imaging Radiology [facility] [address] [place] [address] 08/12/2024 9:20 AM EST Office Visit Family Practice [facility] [address] [place] [address] Gregory Rausch MD [address] [place] [address] 10/30/2024 9:00 AM EST Office Visit Neurology [facility] [address] [place] [address] Sandy Juárez PA-C [address] [facility] [place] [address] 11/03/2024 11:00 AM EST Office Visit Sleep Disorders Ctr [facility] [address] [place] [phone] Christina Birch DO [address] [facility] [place] [address] 11/04/2024 9:30 AM EST Office Visit Gastroenterology, [facility] [address] [facility] [place] [address] Tia Taylor CRNP [address] [facility] [place] [address] 11/27/2024 9:40 AM EST Office Visit Nephrology, [facility] [address] [facility] [place] [address] Fidelina Baumann MD [address] [facility] [place] [address] Scheduled Procedures Name Priority Associated Diagnoses Date/Ti [...] Additional history exists CKD PHOS USE SMARTSET 58194 06/18/202405/26, 06/16/2023, 06/15/2023, Additional history exists HbA1c 08/01/2024 01/30/2024, 08/25, 07/31/2023, Additional history exists Diabetic Eye Exam 09/13/2024 09/13/2023, , 09/13/2023, Additional history exists B-12 09/18/2024 09/18/2023, 08/24, 2020, Additional history exists GFR 11/01/2024 05/01/2024, 12/23, 10/15/2023, Additional history exists Albumin/Creatinine Ratio 01/07/2025 024, 03/09/2023, 12/22/2022, Additional history exists CKD HGB USE SMARTSET 03186 01/07/202501/07, 01/08/2024, 10/15/2023, Additional history exists TSH [...] this encounter Medical Devices Implanted Type Area Chilling Hood Operator Device Identifier Shelf Expiration Date Model / Serial / Lot Cath Roselia Single Lumen - [id number] Implanted:Qty : 1 on 03/12/2008 at OR [facility] Left: Chest [facility] *DO NOT USE* 07/25/2012 21-4053-24 / / [id number] Sut Steel 6 M654g - [id number] Implanted:Qty : 1 on 11/01/2010 at OR [facility] N/A: Chest DO NOT USE M654G / / Sut Steel 6 M654g - [id number] Implanted:Qty : 1 on 11/01/2010 at OR [facility] N/A: Chest DO NOT USE M654G / / Valve Tarsha Aortic [id number] - [id number] Implanted:Qty : 1 on 11/01/2010 at OR [facility] N/A: Heart [employer] in DANIEL 05/20/2012 2800TFX-25 / / [id number] Mesh Soft [id number] - [id number] Implanted:Qty : 1 on 10/10/2019 by Gigi Hendrickson MD at [place] [facility] N/A: Abdomen CR BARD : DAVOL [id number] 05/21/2024 [id number] / / [id number] Lens 22.5 Sn60wf - [id number] - [id number] Implanted:Qty : 1 on 09/15/2020 by Renaldo Cook, Cece Acosta MD at OR [facility] Right: Eye IVA : SURGICAL [id number] 05/13/2025 SN60 WF.225 / [id number] / [id number] Lens 21.5 Sn60wf - [id number] - [id number] Implanted:Qty : 1 on 12/19/2023 by Ramsey Burnett DO at OR [facility] Left: Eye IVA : SURGICAL 12/03/2024 SN60WF.2 15 / [id number] / documented as of this encounter [...] statute hierarchy) Jovita Ovalle Adult Child Health Netbackup Administrator resentative (appointed verbally by patient or by statute hierarchy) Care Teams Project Consultant Relationship Specialty Start Date End Date Gregory Rausch MD [address] [place] [address] PCP - General Family Medicine 02/12/20 documented as of this encounter
--- OUTSIDE RECORDS SUMMARY | 2024-06-05 14:39 | External Medical Summary | Summary of Care ---
Author Name Unknown Organization [facility] Address [address] [place] [address] Phone [phone] Care Team Providers Care Pump Assembler Name Role Phone Gregory Rausch MD Primary Care Provider [phone] Reason for Visit * Reason Onset Date Comments Med Request 05/05/2024 Encounter Details Date Type Department Care Team (Late st Contact Info) Description 05/05/[address] [facility] [address] [place] [address] Gregory Rausch MD [address] [place] [address] Med Request Allergies Active Allergy [...] :DM type 2, not at goal ([facility]) 3 every 15 minutes until [...] failure with preserved ejection fraction (HFpEF) ([facility]) Take 1 Tablet by mouth in the morning and 1 Tablet before bedtime. 180 Tablet 3 01/22/2024 Active BD Pen Needle Short U/F 31G X 8 MMIndications:Type 2 diabetes mellitus with hemoglobin A1c goal of less than 7.0% ([facility]),Type 2 diabetes mellitus with stage 3a chronic kidney disease, with long-term current use of insulin ([facility]) Use with insulin 4 times [...] A1c goal of less than 7.0% ([facility]),Type 2 diabetes mellitus with stage 3a chronic kidney disease, with long-term current use of insulin ([facility]) Inject 36 Units under the skin in the morning. 6 mL 2 03/14/2024 Active Insulin Aspart 100 UNIT/ML Injection Solution (NovoLOG)Indications :Type 2 diabetes mellitus with hemoglobin A1c goal of less than 7.0% ([facility]) Use up to 50 units per day in Omnipod. 03/31/2024 Active Omnipod 5 G6 Intro (Gen 5) Kit Use as directed. Use to delivery insulin via insulin pump 1 Kit 5 04/10/2024 Active Nystatin 195007 UNIT/GM External Powder (Nystop)Indications: Candidal intertrigo APPLY TOPICALLY TO AFFECTED AREA 3 TIMES A DAY. 60 g 1 04/14/2024 Active Ibjpsdmtpn-Szxetiw-A affeine 50-325-40 MG Oral Capsule (Fiorinal)Indication s:Acute [...] Tablet before bedtime. 28 Tablet 05/02/2024 Active documented as of this encounter (statuses [...] eye 09/28/2020 Coronary artery disease invo lving [place] coronary artery of [place] heart without angina pectoris 12/16/2019 Last Assessment [...] 12/21/2016 Diabetes mellitus 01/05/2014 12/21/2016 LEYVA RESEARCH OTHER*[id number] 01/05/2014 12/21/2016 Axillary pain 11/03/2013 12/21/2016 Obesity, [...] cath 09/201008/26/2011 12/21/2016 FOLLOWING SURGERY, UNSPECIFI ED ([facility] 08/25/2011) 08/26/2011 12/21/2016 ADVANCE DIRECTIVE INFORMATION 04/17/2011 12/21/2016 Overview: Yes, Patient instructed to provide copy of advance directive for provider to review and to be scanned into Electronic Medical Record ADVANCE DIRECTIVE INFORMATION 03/01/2011 12/21/2016 Overview: Yes, Patient instructed to provide copy of advance directive for provider to review and to be scanned into Electronic Medical Record [facility] V710 Clinical Trial*[id number] 12/22/2010 04/14/2011 S/P aortic valve replacement 12/01/2010 08/26/2011 S/P AORTIC VALVE REPLACEMENT - #25 pericardial Mc valve 11/01/2010 06/28/2018 Overview: Aortic valve replacement with #25 pericardial Mc valve, model 2800TFX, serial number [id number] (Dr. Walker) [facility] V710 Clinical Trial*[id number] 10/18/2010 11/21/2010 Type 2 diabetes mellitus wit [...] 06/07/2018,01/08/20 18,12/05/2017,06/15,10/27/2013,09/12/2013 Pneumococcal Conjugate Vacci ne, 20-valent ([id number]) 06/22/2023 Pneumococcal Polysaccharide PPV23 (Pneumovax) 01/02/2008 Seasonal [...] 04/08/2024 Does the household have a [facility] source of income? (Household - for [...] encounter Miscellaneous Notes * Telephone Encounter - Brisa Perry OSA - 05/06/2024 10:05 AM EDT Tia please advise DANYELLE Issa 05/06/2024 10:05 AM * Telephone Encounter - Debo Shaffer OSA - 05/05/2024 11:55 AM EDT Pts daughter and POA Jovita is calling in regarding the above call... [...] plan if possible. Please advise and call Jovita back with any questions or concerns * [...] 1C PO Q6H. Thank you, Ariana Foster [facility] Stone Product Fabricator II [facility] ([facility]) 05/05/2024,10:54 AM documented in this encounter Plan of Treatment Upcoming Encounters Date Type Department Care Team (Late st Contact Info) Description 05/08/2024 10:00 AM EDT Home Visit [facility] [address] [place] [address] Zurdo Christina, RN [address] [place] [address] 05/14/2024 9:00 AM EDT [facility] [address] [place] [address] 05/15/2024 1:00 PM EDT Office Visit Pharmacy, [facility] [address] [facility] [place] [address] Pharmacist1, [facility] [address] [facility] [place] [address] 06/02/2024 9:30 AM EDT Imaging Radiology [facility] [address] [place] [address] 08/12/2024 9:20 AM EST Office Visit Family Practice [facility] [address] [place] [address] Gregory Rausch MD [address] [place] [address] 10/30/2024 9:00 AM EST Office Visit Neurology [facility] [address] [place] [address] Sandy Juárez PA-C [address] [place] [address] 11/03/2024 11:00 AM EST Office Visit Sleep Disorders Ctr [facility] [address] [place] [phone] Christina Birch, [address] [place] [address] 11/04/2024 9:30 AM EST Office Visit Gastroenterology, [facility] [address] [place] [address] Tia Taylor CRNP [address] [place] [address] 11/27/2024 9:40 AM EST Office Visit Nephrology, [facility] [address] [place] [address] Fidelina Baumann MD [address] [facility] [place] [address] Scheduled Procedures Name Priority Associated Diagnoses Date/Ti [...] Additional history exists CKD PHOS USE SMARTSET 65096 06/18/202405/26, 06/16/2023, 06/15/2023, Additional history exists HbA1c 08/01/2024 01/30/2024, 08/25, 07/31/2023, Additional history exists Diabetic Eye Exam 09/13/2024 09/13/2023, , 09/13/2023, Additional history exists B-12 09/18/2024 09/18/2023, 08/24, 2020, Additional history exists GFR 11/01/2024 05/01/2024, 12/23, 10/15/2023, Additional history exists Albumin/Creatinine Ratio 01/07/2025 024, 03/09/2023, 12/22/2022, Additional history exists CKD HGB USE SMARTSET 17532 01/07/202501/07, 01/08/2024, 10/15/2023, Additional history exists TSH [...] this encounter Medical Devices Implanted Type Area Anthropology And Archeology Instructor Device Identifier Shelf Expiration Date Model / Serial / Lot Cath Roselia Single Lumen - [id number] Implanted:Qty : 1 on 03/12/2008 at OR [facility] Left: Chest [employer] *DO NOT USE* 07/25/2012 21-4053-24 / / [id number] Sut [facility] 6 M654g - [id number] Implanted:Qty : 1 on 11/01/2010 at OR [facility] N/A: Chest DO NOT USE M654G / / Sut Steel 6 M654g - [id number] Implanted:Qty : 1 on 11/01/2010 at OR [facility] N/A: Chest DO NOT USE M654G / / Valve Tarsha Aortic [id number] - [id number] Implanted:Qty : 1 on 11/01/2010 at OR [facility] N/A: Heart [employer] DANIEL 05/20/2012 2800TFX-25 / / [id number] Mesh Soft [id number] - [id number] Implanted:Qty : 1 on 10/10/2019 by Gigi Hendrickson MD at OR [facility] [place] N/A: Abdomen CR BARD : DAVOL [id number] 05/21/2024 [id number] / / [id number] Lens 22.5 Sn60wf - [id number] - [id number] Implanted:Qty : 1 on 09/15/2020 by Renaldo Cook, Cece Acosta MD at OR [facility] Right: Eye IVA : SURGICAL [id number] 05/13/2025 SN60 WF.225 / [id number] / [id number] Lens 21.5 Sn60wf - [id number] - [id number] Implanted:Qty : 1 on 12/19/2023 by Ramsey Burnett DO at OR [facility] Left: Eye IVA : SURGICAL 12/03/2024 SN60WF.2 15 / [id number] / documented as of this encounter [...] statute hierarchy) Jovita Ovalle Adult Child Health Victims Advocate Clerk/Specialist resentative (appointed verbally by patient or by statute hierarchy) Care Teams Pump Assembler Relationship Specialty Start Date End Date Gregory Rausch MD [address] [place] [address] PCP - General Family Medicine 02/12/20 documented as of this encounter
--- OUTSIDE RECORDS SUMMARY | 2024-06-05 14:39 | External Medical Summary | Summary of Care ---
Author Name Unknown Organization [facility] Address [address] [place] [address] Phone [phone] Care Team Providers Care Distribution Sales Manager Name Role Phone Gregory Rausch MD Primary Care Provider [phone] Reason for Visit * Reason Onset Date Comments Med Request 05/05/2024 Encounter Details Date Type Department Care Team (Late st Contact Info) Description 05/05/2024 Telephone Family Practice [facility] [address] [place] [address] Gregory Rausch MD [address] [place] [address] Med Request Allergies Active Allergy [...] (Glucose)Indication s:DM type 2, not at goal ([facility]) 3 every 15 minutes until [...] heart failure with preserved ejection fraction (HFpEF) ([facility]) Take 1 Tablet by mouth in the morning and 1 Tablet before bedtime. 180 Tablet 3 01/22/2024 Active BD Pen Needle Short U/F 31G X 8 MMIndications:Type 2 diabetes mellitus with hemoglobin A1c goal of less than 7.0% ([facility]),Type 2 diabetes mellitus with stage 3a chronic kidney disease, with long-term current use of insulin ([facility]) Use with insulin 4 times [...] hemoglobin A1c goal of less than 7.0% ([facility]),Type 2 diabetes mellitus with stage 3a chronic kidney disease, with long-term current use of insulin ([facility]) Inject 36 Units under the skin in the morning. 6 mL 2 03/14/2024 Active Insulin Aspart 100 UNIT/ML Injection Solution (NovoLOG)Indication s:Type 2 diabetes mellitus with hemoglobin A1c goal of less than 7.0% ([facility]) Use up to 50 units per day in Omnipod. 03/31/2024 Active Omnipod 5 G6 Intro (Gen 5) Kit Use as directed. Use to delivery insulin via insulin pump 1 Kit 5 04/10/2024 Active Nystatin 800871 UNIT/GM External Powder (Nystop)Indications :Candidal intertrigo APPLY [...] 12/21/2016 Diabetes mellitus 01/05/2014 12/21/2016 LEYVA RESEARCH OTHER*[id number] 01/05/2014 12/21/2016 Axillary pain 11/03/2013 12/21/2016 Obesity, [...] to be scanned into Electronic Medical Record [facility] V710 Clinical Trial*[id number] 12/22/2010 04/14/2011 S/P aortic valve replacement 12/01/2010 08/26/2011 S/P AORTIC VALVE REPLACEMENT - #25 pericardial Mc valve 11/01/2010 06/28/2018 Overview: Aortic valve replacement with #25 pericardial Mc valve, model 2800TFX, serial number [id number] (Dr. Walker) [facility] V710 Clinical Trial*[id number] 10/18/2010 11/21/2010 Type 2 diabetes mellitus wit [...] 06/07/2018,01/08/20 18,12/05/2017,06/15,10/27/2013,09/12/2013 Pneumococcal Conjugate Vacci ne, 20-valent ([id number]) 06/22/2023 Pneumococcal Polysaccharide PPV23 (Pneumovax) 01/02/2008 Seasonal [...] No 04/08/2024 Does the household have a select specialty hospitalr source of income? (Household - for [...] encounter Miscellaneous Notes * Telephone Encounter - Caridad Ling LPN - 05/06/2024 2:28 PM EDT I spoke with Jovita. She is aware of Vanco order and has no questions. * Telephone Encounter - Tia Taylor CRNP [...] with a long vancomycin taper. Prescribed to [facility] this mroning at 8:54 AM. (Vanco 125 mg orally 4 times daily for 2 wks, then 2 x/day x wk, then daily x 1 wk, then every other day for 8 wks.) * Telephone Encounter - Brisa Perry OSA - 05/06/2024 10:05 AM EDT Tia please advise DANYELLE Issa 05/06/2024 10:05 AM * Telephone Encounter - Deob Shaffer OSA - 05/05/2024 11:55 AM EDT [...] plan if possible. Please advise and call Ojvita back with any questions or concerns * [...] PO Q6H. Thank you, Ariana Foster CPhT Single Wire Saw Operator II [facility] ([facility]) 05/05/2024,10:54 AM documented in this encounter Plan of Treatment Upcoming Encounters Date Type Department Care Team (Late st Contact Info) Description 05/08/2024 10:00 AM EDT Home Visit [facility] [address] [place] [address] Zurdo Christina, PRABHA [address] [place] [address] 05/14/2024 9:00 AM EDT Imaging Radiology [address] [place] [address] 05/15/2024 1:00 PM EDT Office Visit Pharmacy, [facility] [address] [place] [address] Pharmacist1, [facility] [address] [place] [address] 06/02/2024 9:30 AM EDT Imaging Radiology [facility] [address] [facility] [place] [address] 08/12/2024 9:20 AM EST Office Visit Family Practice [facility] [address] [facility] [place] [address] Gregory Rausch MD [address] [facility] [place] [address] 10/30/2024 9:00 AM EST Office Visit [facility] [address] [place] [address] Sandy Juárez PA-C [address] [facility] [place] [address] 11/03/2024 11:00 AM EST Office Visit [facility] Disorders Ctr [facility] [address] [facility] [place] [phone] Christina Birch DO [address] [facility] [place] [address] 11/04/2024 9:30 AM EST Office Visit Gastroenterology, [facility] [address] [facility] [place] [address] Tia Taylor CRNP [address] [facility] [place] [address] 11/27/2024 9:40 AM EST Office Visit Nephrology, [facility] [address] [place] [address] Fidelina Baumann MD [address] [facility] [place] [address] Scheduled Procedures Name Priority Associated Diagnoses Date/Ti [...] Additional history exists CKD PHOS USE SMARTSET 71799 06/18/202405/26, 06/16/2023, 06/15/2023, Additional history exists HbA1c 08/01/2024 01/30/2024, 08/25, 07/31/2023, Additional history exists Diabetic Eye Exam 09/13/2024 09/13/2023, , 09/13/2023, Additional history exists B-12 09/18/2024 09/18/2023, 08/24, 2020, Additional history exists GFR 11/01/2024 05/01/2024, 12/23, 10/15/2023, Additional history exists Albumin/Creatinine Ratio 01/07/2025 024, 03/09/2023, 12/22/2022, Additional history exists CKD HGB USE SMARTSET 98273 01/07/202501/07, 01/08/2024, 10/15/2023, Additional history exists TSH 01/07/2025 01/08/2024, 09/25, 06/06/2023, Additional history exists Colonoscopy 06/27/2026 06/27/2023, 12/09/2021, 09/13/2022, Additional history exists Colorectal Cancer Screening [...] this encounter Medical Devices Implanted Type Area Bead Supervisor Device Identifier Shelf Expiration Date Model / Serial / Lot Cath Roselia Single Lumen - [id number] Implanted:Qty : 1 on 03/12/2008 at OR [facility] Left: Chest [facility] *DO NOT USE* 07/25/2012 21-4053-24 / / [id number] Sut Steel 6 M654g - [id number] Implanted:Qty : 1 on 11/01/2010 at OR [facility] N/A: Chest DO NOT USE M654G / / Sut Steel 6 M654g - [id number] Implanted:Qty : 1 on 11/01/2010 at OR [facility] N/A: Chest DO NOT USE M654G / / Valve Tarsha Aortic [id number] - [id number] Implanted:Qty : 1 on 11/01/2010 at OR [facility] N/A: Heart [employer] DANIEL 05/20/2012 2800TFX-25 / / [id number] Mesh Soft 73t61rw - [id number] Implanted:Qty : 1 on 10/10/2019 by Gigi Hendrickson MD at [place] [facility] N/A: Abdomen CR BARD : DAVOL [id number] 05/21/2024 [id number] / / [id number] Lens 22.5 Sn60wf - [id number] - [id number] Implanted:Qty : 1 on 09/15/2020 by Cece Roland MD at OR [facility] Right: Eye IVA : SURGICAL [id number] 05/13/2025 SN60 WF.225 / [id number] / [id number] Lens 21.5 Sn60wf - [id number] - [id number] Implanted:Qty : 1 on 12/19/2023 by Ramsey Burnett DO at OR [facility] Left: Eye IVA : SURGICAL 12/03/2024 SN60WF.2 15 / [id number] / documented as of this encounter [...] Relationship Healthcare Agent Relationship Communication Gigi Rose [facility] Child Health Care Repr esentative (appointed verbally by patient or by statute hierarchy) Jovita [facility] Child Health Philosophy Faculty resentative (appointed verbally by patient or by statute hierarchy) [email or web address] Distribution Sales Manager Relationship Specialty Start Date End Date Gregory Rausch MD [address] [place] [address] PCP - General Family Medicine 02/12/20 documented as of this encounter
--- OUTSIDE RECORDS SUMMARY | 2024-06-05 14:39 | External Medical Summary | Summary of Care ---
Author Name Unknown Organization [facility] Address [address] [place] [address] Phone [phone] Care Team Providers Care Filling Layer Up Name Role Phone Gregory Rausch MD Primary Care Provider [phone] Reason for Visit * Reason Onset Date Comments Med Request 05/05/2024 Advice 05/05/2024 Medication Problem 05/05/2024 Encounter Details Date Type Department Care Team (Late st Contact Info) Description 05/05/2024 Telephone Family Practice [facility] [address] [facility] [place] [address] Gregory Rausch MD [address] [facility] [place] [address] Med Request; Advice; Medication Problem Allergies [...] hypoglycemia E11.9 100 Tab 3 07/06/2021 Active Splice MachineTouch Verio w/Device Kit Use up to 4 times a day E11.9 1 Kit 02/10/2022 Active Splice MachineTouch Delica Lancets 33G TEST 4 TIMES DAILY [...] Capsules by mouth in the morning. Active Splice MachineTouch Verio In Vitro Strip (Glucose Blood) Use [...] pump 1 Kit 5 04/10/2024 Active Nystatin 616104 UNIT/GM External Powder (Nystop)Indications :Candidal intertrigo APPLY [...] eye 09/28/2020 Coronary artery disease invo [place]ving [place] coronary artery of [place] heart without angina pectoris 12/16/2019 Last Assessment [...] 12/21/2016 Diabetes mellitus 01/05/2014 12/21/2016 LEYVA RESEARCH OTHER*[id number] 01/05/2014 12/21/2016 Axillary pain 11/03/2013 12/21/2016 Obesity, [...] cath 09/201008/26/2011 12/21/2016 FOLLOWING SURGERY, UNSPECIFI ED ([facility] 08/25/2011) 08/26/2011 12/21/2016 ADVANCE DIRECTIVE INFORMATION 04/17/2011 12/21/2016 Overview: Yes, Patient instructed to provide copy of advance directive for provider to review and to be scanned into Electronic Medical Record ADVANCE DIRECTIVE INFORMATION 03/01/2011 12/21/2016 Overview: Yes, Patient instructed to provide copy of advance directive for provider to review and to be scanned into Electronic Medical Record [facility] V710 Clinical Trial*[id number] 12/22/2010 04/14/2011 S/P aortic valve replacement 12/01/2010 08/26/2011 S/P AORTIC VALVE REPLACEMENT - #25 pericardial Mc valve 11/01/2010 06/28/2018 Overview: Aortic valve replacement with #25 pericardial Mc valve, model 2800TFX, serial number [id number] (Dr. Walker) [facility] V710 Clinical Trial*[id number] 10/18/2010 11/21/2010 Type 2 diabetes mellitus wit [...] 06/07/2018,01/08/20 18,12/05/2017,06/15,10/27/2013,09/12/2013 Pneumococcal Conjugate Vacci ne, 20-valent ([id number]) 06/22/2023 Pneumococcal Polysaccharide PPV23 (Pneumovax) 01/02/2008 Seasonal [...] encounter Miscellaneous Notes * Telephone Encounter - Alejandro Mccarthy OSA - 05/06/2024 8:54 AM EDT Jovita called in regarding waiting on a call back regarding a prescription her mom was taking Dificid 200 MG Oral Tablet (Fidaxomicin) [[id number]] (Order [id number]). Lease follow up with Jovita * Telephone Encounter - Briseida Kang LPN - 05/05/2024 2:34 PM EDT Did you pend patient's preferred pharmacy and medication before forwarding?yes Pharmacy: [id number] Pending Prescriptions: Disp Refills Saccharomyces boulardii 250 [...] is appropriate [id number]. Thank you, Ariana Foster CPhT Senior Laboratory Technician II [facility] ([facility]) 05/05/2024,10:49 AM documented in this encounter Plan of Treatment Upcoming Encounters Date Type Department Care Team (Late st Contact Info) Description 05/08/2024 10:00 AM EDT [facility] [address] [address] Zurdo Christina, RN [address] [place] [address] 05/14/2024 9:00 AM EDT Imaging Radiology [address] [place] [address] 05/15/2024 1:00 PM EDT Office Visit Pharmacy, [facility] [address] [facility] [place] [address] Pharmacist1, [facility] [address] [facility] [place] [address] 06/02/2024 9:30 AM EDT Imaging Radiology [facility] [address] [place] [address] 08/12/2024 9:20 AM EST Office Visit Family Practice [facility] [address] [place] [address] Gregory Rausch MD [address] [place] [address] 10/30/2024 9:00 AM EST Office Visit Neurology [facility] [address] [place] [address] Sandy Juárez PA-C [address] [facility] [place] [address] 11/03/2024 11:00 AM EST Office Visit Sleep Disorders Ctr [facility] [address] [place] [phone] Christina Birch DO [address] [place] [address] 11/04/2024 9:30 AM EST Office Visit Gastroenterology, [facility] [address] [place] [address] Tia Taylor CRNP [address] [place] [address] 11/27/2024 9:40 AM EST Office Visit Nephrology, [facility] [place] [address] [facility] [place] [address] Fidelina Baumann MD [address] [facility] [place] [address] Scheduled Procedures Name Priority Associated Diagnoses Date/Ti [...] Additional history exists CKD PHOS USE SMARTSET 19919 06/18/202405/26, 06/16/2023, 06/15/2023, Additional history exists HbA1c 08/01/2024 01/30/2024, 08/25, 07/31/2023, Additional history exists Diabetic Eye Exam 09/13/2024 09/13/2023, , 09/13/2023, Additional history exists B-12 09/18/2024 09/18/2023, 08/24, 2020, Additional history exists GFR 11/01/2024 05/01/2024, 12/23, 10/15/2023, Additional history exists Albumin/Creatinine Ratio 01/07/2025 024, 03/09/2023, 12/22/2022, Additional history exists CKD HGB USE SMARTSET 77255 01/07/202501/07, 01/08/2024, 10/15/2023, Additional history exists TSH [...] this encounter Medical Devices Implanted Type Area Deicer Repairer Pneumatic Device Identifier Shelf Expiration Date Model / Serial / Lot Cath Roselia Single Lumen - [id number] Implanted:Qty : 1 on 03/12/2008 at OR [facility] Left: Chest [facility] *DO NOT USE* 07/25/2012 21-4053-24 / / [id number] Sut Steel 6 M654g - [id number] Implanted:Qty : 1 on 11/01/2010 at OR [facility] N/A: Chest DO NOT USE M654G / / Sut Steel 6 M654g - [id number] Implanted:Qty : 1 on 11/01/2010 at OR [facility] N/A: Chest DO NOT USE M654G / / Valve Tarsha Aortic [id number] - [id number] Implanted:Qty : 1 on 11/01/2010 at OR [facility] N/A: Heart [employer] DANIEL 05/20/2012 2800TFX-25 / / [id number] Mesh Soft 73b19ai - [id number] Implanted:Qty : 1 on 10/10/2019 by Gigi Hendrickson MD [place] [facility] N/A: Abdomen CR BARD : DAVOL [id number] 05/21/2024 [id number] / / [id number] Lens 22.5 Sn60wf - [id number] - [id number] Implanted:Qty : 1 on 09/15/2020 by Renaldo Cook, Cece Acosta MD at OR [facility] Right: Eye IVA : SURGICAL [id number] 05/13/2025 SN60 WF.225 / [id number] / [id number] Lens 21.5 Sn60wf - [id number] - [id number] Implanted:Qty : 1 on 12/19/2023 by Ramsey Burnett DO at OR [facility] Left: Eye IVA : SURGICAL 12/03/2024 SN60WF.2 15 / [id number] / documented as of this encounter [...] statute hierarchy) Jovita [facility] Adult Child Health Tape Editor resentative (appointed verbally by patient or by statute hierarchy) [email or web address] Care Teams Filling Layer Up Relationship Specialty Start Date End Date Gregory Rausch MD [address] [facility] [place] [address] PCP - General Family Medicine 02/12/20 documented as of this encounter
--- OUTSIDE RECORDS SUMMARY | 2024-06-05 14:40 | External Medical Summary | Summary of Care ---
Author Name Unknown Organization [facility] Address [address] [place] [address] Phone [phone] Care Team Providers Care Market Research Analyst Name Role Phone Gregory Rausch MD Primary Care Provider [phone] Reason for Visit * Reason Onset Date Comments Med Request 05/05/2024 Encounter Details Date Type Department Care Team (Late st Contact Info) Description 05/05/2024 Telephone Family Practice [facility] [address] [place] [address] Gregory Rausch MD [address] [place] [address] Med Request Allergies Active Allergy Reactions Criticality Noted Date Comments Adhesive Tape 07/02/2017 Can tolerate band-aids Glycerin Other (Please comment) 03/12/2008 Topical agents with glycein-burning & itching Lactose 12/09/2014 Dairy - gas Lisinopril Cough 01/21/2010 Monosodium Glutamate Edema Other 03/12/2008 Hands and feet Penicillins Rash 11/14/2007 documented as of this encounter (statuses as of 05/05/2024) Medications Medication Sig Dispensed Refills Start Date [...] (Glucose)Indications :DM type 2, not at goal ([facility]) 3 every 15 minutes until glucose is [...] heart failure with preserved ejection fraction (HFpEF) ([facility]) Take 1 Tablet by mouth in the morning and 1 Tablet before bedtime. 180 Tablet 3 01/22/2024 Active BD Pen Needle Short U/F 31G X 8 MMIndications:Type 2 diabetes mellitus with hemoglobin A1c goal of less than 7.0% ([facility]),Type 2 diabetes mellitus with stage 3a chronic kidney disease, with long-term current use of insulin ([facility]) Use with insulin 4 times daily [...] hemoglobin A1c goal of less than 7.0% ([facility]),Type 2 diabetes mellitus with stage 3a chronic kidney disease, with long-term current use of insulin ([facility]) Inject 36 Units under the skin in the morning. 6 mL 2 03/14/2024 Active Insulin Aspart 100 UNIT/ML Injection Solution (NovoLOG)Indications :Type 2 diabetes mellitus with hemoglobin A1c goal of less than 7.0% ([facility]) Use up to 50 units per day in Omnipod. 03/31/2024 Active Omnipod 5 G6 Intro (Gen 5) Kit Use as directed. Use to delivery insulin via insulin pump 1 Kit 5 04/10/2024 Active Nystatin 522484 UNIT/GM External Powder (Nystop)Indications: Candidal intertrigo APPLY TOPICALLY TO AFFECTED AREA 3 TIMES A DAY. 60 g 1 04/14/2024 Active Cuinjzryyb-Clxfzhr-Z affeine 50-325-40 MG Oral Capsule (Fiorinal)Indication s:Acute [...] as of this encounter (statuses as of 05/05/2024) Active Problems Problem Noted Date Diagnosed Date [...] eye 09/28/2020 Coronary artery disease invo lving [place] coronary artery of [place] heart without angina pectoris 12/16/2019 Last Assessment [...] as of this encounter (statuses as of 05/05/2024) Resolved Problems Problem Noted Date Diagnosed Date [...] 12/21/2016 Diabetes mellitus 01/05/2014 12/21/2016 LEYVA RESEARCH OTHER*[id number] 01/05/2014 12/21/2016 Axillary pain 11/03/2013 12/21/2016 Obesity, [...] cath 09/201008/26/2011 12/21/2016 FOLLOWING SURGERY, UNSPECIFI ED ([facility] BSO 08/25/2011) 08/26/2011 12/21/2016 ADVANCE DIRECTIVE INFORMATION 04/17/2011 12/21/2016 Overview: Yes, Patient instructed to provide copy of advance directive for provider to review and to be scanned into Electronic Medical Record ADVANCE DIRECTIVE INFORMATION 03/01/2011 12/21/2016 Overview: Yes, Patient instructed to provide copy of advance directive for provider to review and to be scanned into Electronic Medical Record [place] V710 Clinical Trial*[id number] 12/22/2010 04/14/2011 S/P aortic valve replacement 12/01/2010 08/26/2011 S/P AORTIC VALVE REPLACEMENT - #25 pericardial Hernandez valve 11/01/2010 06/28/2018 Overview: Aortic valve replacement with #25 pericardial Hernandez valve, model 2800TFX, serial number [id number] (Dr. Walker) [facility] V710 Clinical Trial*[id number] 10/18/2010 11/21/2010 Type 2 diabetes mellitus wit [...] as of this encounter (statuses as of 05/05/2024) Immunizations Name Administration Dates Next Due COVID-19 mRNA, LNP-s, No Pre serve, 2-Dose Series (Moderna) 10/25/2021,02/16/2021,01/18/2021 HEP A - Hepatitis A (Adult > 18 yrs) 06/07/2018, 12/05/2017 Hepatitis B, 20+ yrs 06/07/2018,01/08/20 18,12/05/2017,06/15,10/27/2013,09/12/2013 Pneumococcal Conjugate Vacci ne, 20-valent (Hoftory58) 06/22/2023 Pneumococcal Polysaccharide PPV23 (Pneumovax) 01/02/2008 Seasonal [...] No 04/08/2024 Does the household have a [facility] source of income? (Household - for [...] encounter Miscellaneous Notes * Telephone Encounter - Debo Shaffer OSA [...] PO Q6H. Thank you, Ariana Foster CPhT Profile Mill Operator Tape Control II Centralized Clinical Pharmacy Services (CCPS) 05/05/2024,10:54 AM documented in this encounter Plan of Treatment Upcoming Encounters Date Type Department Care Team (Late st Contact Info) Description 05/08/2024 10:00 AM EDT Home Visit [facility], [address] [place] [address] Zurdo Christina, RN [address] [place] [address] 05/14/2024 9:00 AM EDT Imaging Radiology [facility] [address] [place] [address] 05/15/2024 1:00 PM EDT Office Visit Pharmacy, [facility] [address] [facility] [place] [address] Pharmacist1, [facility] [address] [facility] [place] [address] 06/02/2024 9:30 AM EDT Imaging Radiology [facility] 132 [facility] [place] [address] 08/12/2024 9:20 AM EST Office Visit Family Practice [facility] [address] [facility] [place] [address] Gregory Rausch MD 132 [facility] [place] [address] 10/30/2024 9:00 AM EST Office Visit Neurology [facility] [address] [place] [address] Sandy Juárez PA-C [address] [facility] [place] [address] 11/03/2024 11:00 AM EST Office Visit Sleep Disorders Ctr [facility] [address] [facility] [place] [id number] Christina Birch, [address] [place] [address] 11/04/2024 9:30 AM EST Office Visit Gastroenterology, [facility] [address] [place] [address] Tia Taylor CRNP [address] [place] [address] 11/27/2024 9:40 AM EST Office Visit Nephrology, [facility] [address] [facility] [place] [address] Fidelina Baumann MD [address] [facility] [place] [address] Scheduled Procedures Name Priority Associated Diagnoses Date/Ti [...] Additional history exists CKD PHOS USE SMARTSET 95541 06/18/202405/26, 06/16/2023, 06/15/2023, Additional history exists HbA1c 08/01/2024 01/30/2024, 08/25, 07/31/2023, Additional history exists Diabetic Eye Exam 09/13/2024 09/13/2023, , 09/13/2023, Additional history exists B-12 09/18/2024 09/18/2023, 08/24, 2020, Additional history exists GFR 11/01/2024 05/01/2024, 12/23, 10/15/2023, Additional history exists Albumin/Creatinine Ratio 01/07/2025 024, 03/09/2023, 12/22/2022, Additional history exists CKD HGB USE SMARTSET 00074 01/07/202501/07, 01/08/2024, 10/15/2023, Additional history exists TSH [...] this encounter Medical Devices Implanted Type Area Liquefier Device Identifier Shelf Expiration Date Model / Serial / Lot Cath Roselia Single Lumen - [id number] Implanted:Qty : 1 on 03/12/2008 at OR [facility] Left: Chest [facility] *DO NOT USE* 07/25/2012 21-4053-24 / / [id number] Sut Steel 6 M654g - [id number] Implanted:Qty : 1 on 11/01/2010 at OR [facility] N/A: Chest DO NOT USE M654G / / Sut Steel 6 M654g - [id number] Implanted:Qty : 1 on 11/01/2010 at OR [facility] N/A: Chest DO NOT USE M654G / / Valve Tarsha Aortic [id number] - [id number] Implanted:Qty : 1 on 11/01/2010 at OR [facility] N/A: Heart [employer] DANIEL 05/20/2012 2800TFX-25 / / [id number] Mesh Soft [id number] - [id number] Implanted:Qty : 1 on 10/10/2019 by Gigi Hendrickson MD at [place] [facility] N/A: Abdomen CR BARD : DAVOL [id number] 05/21/2024 [id number] / / [id number] Lens 22.5 Sn60wf - [id number] - [id number] Implanted:Qty : 1 on 09/15/2020 by Renaldo Cook, Cece Acosta MD at OR [facility] Right: Eye IVA : SURGICAL [id number] 05/13/2025 SN60 WF.225 / [id number] / [id number] Lens 21.5 Sn60wf - [id number] - [id number] Implanted:Qty : 1 on 12/19/2023 by Ramsey Burnett DO at OR [facility] Left: Eye IVA : SURGICAL 12/03/2024 SN60WF.2 15 / [id number] / documented as of this encounter [...] statute hierarchy) Jovita Ovalle Adult Child Health Theater Set Production Designer resentative (appointed verbally by patient or by statute hierarchy) [email or web address] Care Teams Market Research Analyst Relationship Specialty Start Date End Date Gregory Rausch MD [address] [place] [address] PCP - General Family Medicine 02/12/20 documented as of this encounter
--- OUTSIDE RECORDS SUMMARY | 2024-06-05 14:40 | External Medical Summary | Summary of Care ---
Author Name Unknown Organization [facility] Address [address] [place] [address] Phone [phone] Care Team Providers Care Boiler Mechanic Name Role Phone Gregory Rausch MD Primary Care Provider [phone] Reason for Visit * Reason Onset Date Comments Advice 05/02/2024 Encounter Details Date Type Department Care Team (Late st Contact Info) Description 05/02/2024 Telephone Family [address] [facility] [address] [place] [address] Gregory Rausch MD [address] [place] [address] Advice Allergies Active Allergy Reactions [...] 2, not at goal ([facility]) 3 every 15 minutes until glucose is [...] use of insulin ([facility]) Inject 36 Units under the skin in [...] pump 1 Kit 5 04/10/2024 Active Nystatin 480740 UNIT/GM External Powder (Nystop)Indications: Candidal intertrigo APPLY TOPICALLY TO AFFECTED AREA 3 TIMES A DAY. 60 g 1 04/14/2024 Active Apcuglxdek-Mdmjdsl-I affeine 50-325-40 MG Oral Capsule (Fiorinal)Indication s:Acute [...] eye 09/28/2020 Coronary artery disease invo lving [place] coronary artery of [place] heart without angina pectoris 12/16/2019 Last Assessment [...] 12/21/2016 Diabetes mellitus 01/05/2014 12/21/2016 LEYVA RESEARCH OTHER*[id number] 01/05/2014 12/21/2016 Axillary pain 11/03/2013 12/21/2016 Obesity, [...] 12/21/2016 FOLLOWING SURGERY, UNSPECIFI ED ([facility] BSO 08/25/2011) 08/26/2011 12/21/2016 ADVANCE DIRECTIVE INFORMATION 04/17/2011 12/21/2016 Overview: Yes, Patient instructed to provide copy of advance directive for provider to review and to be scanned into Electronic Medical Record ADVANCE DIRECTIVE INFORMATION 03/01/2011 12/21/2016 Overview: Yes, Patient instructed to provide copy of advance directive for provider to review and to be scanned into Electronic Medical Record [facility] V710 Clinical Trial*[id number] 12/22/2010 04/14/2011 S/P aortic valve replacement 12/01/2010 08/26/2011 S/P AORTIC VALVE REPLACEMENT - #25 pericardial Mc valve 11/01/2010 06/28/2018 Overview: Aortic valve replacement with #25 pericardial Mc valve, model 2800TFX, serial number [id number] (Dr. Walker) [facility] V710 Clinical Trial*[id number] 10/18/2010 11/21/2010 Type 2 diabetes mellitus wit [...] 06/07/2018,01/08/20 18,12/05/2017,06/15,10/27/2013,09/12/2013 Pneumococcal Conjugate Vacci ne, 20-valent (Qjlnryp43) 06/22/2023 Pneumococcal Polysaccharide PPV23 (Pneumovax) 01/02/2008 Seasonal [...] was reviewed. Thank you, Ariana Foster CPhT Software Support Technician II Centralized Clinical Pharmacy Services (CCPS) 05/05/2024,10:44 AM * Telephone Encounter - Shayna Bullard LPN - 05/05/2024 9:43 AM EDT Daughter calling to check if GI has reviewed previous message. She is inquiring if Dificid is the correct medication? * Telephone Encounter - Nataly Rodriguez OSA - 05/05/2024 9:39 AM EDT Reason for call: c-diff Caller was transferred to [facility] at the nurse line. * Telephone Encounter [...] Description 05/08/2024 10:00 AM EDT Home Visit [facility] [address] [place] [address] Zurdo Christina, RN [address] [place] [address] 05/14/2024 9:00 AM EDT Imaging Radiology [facility] [address] [place] [address] 05/15/2024 1:00 PM EDT Office Visit Pharmacy, [place] [address] [facility] [place] [address] Pharmacist1, [facility] [address] [place] [address] 06/02/2024 9:30 AM EDT Imaging Radiology [facility] [address] [facility] [place] [address] 08/12/2024 9:20 AM EST Office Visit Family Practice [facility] [address] [facility] [place] [address] Gregory Rausch MD 132 [facility] [place] [address] 10/30/2024 9:00 AM EST Office Visit Neurology [facility] [address] [facility] [place] [address] Sandy Juárez PA-C [address] [facility] [place] [address] 11/03/2024 11:00 AM EST Office Visit Sleep Disorders Ctr [facility] [address] [facility] [place] [phone] Christina Birch DO [address] [facility] [place] [address] 11/04/2024 9:30 AM EST Office Visit Gastroenterology, [facility] [address] [facility] [place] [address] Tia Taylor CRNP [address] [facility] [place] [address] 11/27/2024 9:40 AM EST Office Visit Nephrology, [facility] [address] [facility] [place] [address] Fidelina Baumann MD 200 [facility] [place] [address] Scheduled Procedures Name Priority Associated Diagnoses Date/Ti [...] Additional history exists CKD PHOS USE SMARTSET 46131 06/18/202405/26, 06/16/2023, 06/15/2023, Additional history exists HbA1c 08/01/2024 01/30/2024, 08/25, 07/31/2023, Additional history exists Diabetic Eye Exam 09/13/2024 09/13/2023, , 09/13/2023, Additional history exists B-12 09/18/2024 09/18/2023, 08/24, 2020, Additional history exists GFR 11/01/2024 05/01/2024, 12/23, 10/15/2023, Additional history exists Albumin/Creatinine Ratio 01/07/2025 024, 03/09/2023, 12/22/2022, Additional history exists CKD HGB USE SMARTSET 55322 01/07/202501/07, 01/08/2024, 10/15/2023, Additional history exists TSH [...] this encounter Medical Devices Implanted Type Area Enrichment Teacher Device Identifier Shelf Expiration Date Model / Serial / Lot Cath Roselia Single Lumen - [id number] Implanted:Qty : 1 on 03/12/2008 at OR [facility] Left: Chest [facility] *DO NOT USE* 07/25/2012 21-4053-24 / / [id number] Sut Steel 6 M654g - [id number] Implanted:Qty : 1 on 11/01/2010 at OR [facility] N/A: Chest DO NOT USE M654G / / Sut Steel 6 M654g - [id number] Implanted:Qty : 1 on 11/01/2010 at OR [facility] N/A: Chest DO NOT USE M654G / / Valve Tarsha Aortic [id number] - [id number] Implanted:Qty : 1 on 11/01/2010 at OR [facility] N/A: Heart [employer] DANIEL 05/20/2012 2800TFX-25 / / [id number] Mesh Soft [id number] - [id number] Implanted:Qty : 1 on 10/10/2019 by Gigi Hendrickson MD [place] [facility] [place]/A: Abdomen CR BARD : DAVOL [id number] 05/21/2024 [id number] / / [id number] Lens 22.5 Sn60wf - [id number] - [id number] Implanted:Qty : 1 on 09/15/2020 by Renaldo Cook, Cece Acosta MD at OR [facility] Right: Eye IVA : SURGICAL [id number] 05/13/2025 SN60 WF.225 / [id number] Lens 21.5 Sn60wf - [id number] - [id number] Implanted:Qty : 1 on 12/19/2023 by Ramsey Burnett DO at OR [facility] Left: Eye IVA : SURGICAL 12/03/2024 SN60WF.2 15 / [id number] / documented as of this encounter [...] statute hierarchy) Jovita Ovalle Adult Child Health Plastic Duplicator resentative (appointed verbally by patient or by statute hierarchy) [email or web address] Care Teams Boiler Mechanic Relationship Specialty Start Date End Date Gregory Rausch MD [address] [place] [address] PCP - General Family Medicine 02/12/20 documented as of this encounter
--- OUTSIDE RECORDS SUMMARY | 2024-06-05 14:40 | External Medical Summary | Summary of Care ---
Author Name Unknown Organization [facility] Address [address] [place] [address] Phone [phone] Care Team Providers Care Seat Cover Installer Name Role Phone Gregory Rausch MD Primary Care Provider [phone] Reason for Visit * Reason Onset Date Comments Advice 05/02/2024 Encounter Details Date Type Department Care Team (Late st Contact Info) Description 05/02/2024 Telephone Family Practice [facility] [address] [place] [address] Gregory Rausch MD [address] [place] [address] Advice Allergies Active Allergy Reactions [...] (Glucose)Indications :DM type 2, not at goal ([facility]) 3 every 15 minutes until [...] of insulin ([facility]) Inject 36 Units under the [...] pump 1 Kit 5 04/10/2024 Active Nystatin 205076 UNIT/GM External Powder (Nystop)Indications: Candidal intertrigo APPLY TOPICALLY TO AFFECTED AREA 3 TIMES A DAY. 60 g 1 04/14/2024 Active Hcxqbhndqr-Mcnndvl-Q affeine 50-325-40 MG Oral Capsule (Fiorinal)Indication s:Acute [...] eye 09/28/2020 Coronary artery disease invo lving [place] coronary artery of [place] heart without angina pectoris 12/16/2019 Last Assessment [...] 12/21/2016 Diabetes mellitus 01/05/2014 12/21/2016 LEYVA RESEARCH OTHER*[id number] 01/05/2014 12/21/2016 Axillary pain 11/03/2013 12/21/2016 Obesity, [...] cath 09/201008/26/2011 12/21/2016 FOLLOWING SURGERY, UNSPECIFI ED ([facility] BSO 08/25/2011) 08/26/2011 12/21/2016 ADVANCE DIRECTIVE INFORMATION 04/17/2011 12/21/2016 Overview: Yes, Patient instructed to provide copy of advance directive for provider to review and to be scanned into Electronic Medical Record ADVANCE DIRECTIVE INFORMATION 03/01/2011 12/21/2016 Overview: Yes, Patient instructed to provide copy of advance directive for provider to review and to be scanned into Electronic Medical Record [facility] V710 Clinical Trial*[id number] 12/22/2010 04/14/2011 S/P aortic valve replacement 12/01/2010 08/26/2011 S/P AORTIC VALVE REPLACEMENT - #25 pericardial Mc valve 11/01/2010 06/28/2018 Overview: Aortic valve replacement with #25 pericardial Mc valve, model 2800TFX, serial number [id number] (Dr. Walker) [facility] V710 Clinical Trial*[id number] 10/18/2010 11/21/2010 Type 2 diabetes mellitus wit [...] 06/07/2018,01/08/20 18,12/05/2017,06/15,10/27/2013,09/12/2013 Pneumococcal Conjugate Vacci ne, 20-valent (Yzjbwmk01) 06/22/2023 Pneumococcal Polysaccharide PPV23 (Pneumovax) 01/02/2008 Seasonal [...] encounter Miscellaneous Notes * Telephone Encounter - Padma Sanchez CMA [...] was reviewed. Thank you, Ariana Foster CPhT Balance Screwhead Polisher II Centralized Clinical Pharmacy Services (CCPS) 05/05/2024,10:44 AM * Telephone Encounter - Shayna Bullard LPN - 05/05/2024 9:43 AM EDT Daughter calling to check if GI has reviewed previous message. She is inquiring if Dificid is the correct medication? * Telephone Encounter - Nataly Rodriguez OSA - 05/05/2024 9:39 AM EDT Reason for call: c-diff Caller was transferred to [facility] at the nurse line. * Telephone Encounter [...] Description 05/08/2024 10:00 AM EDT Home Visit [facility] [address] [place] [address] Zurdo Christina, PRABHA [address] [place] [address] 05/14/2024 9:00 AM EDT Imaging Radiology [address] [place] [address] 05/15/2024 1:00 PM EDT Office Visit Pharmacy, [facility] [address] [place] [address] Pharmacist1, [facility] [address] [place] [address] 06/02/2024 9:30 AM EDT Imaging Radiology [facility] 132 [facility] [place] [address] 08/12/2024 9:20 AM EST Office Visit Family Practice [facility] 132 [facility] [place] [address] Gregory Rausch MD 132 [facility] [place] [address] 10/30/2024 9:00 AM EST Office Visit Neurology [facility] [address] [place] [address] Sandy Juárez PABari [facility] [place] [address] 11/03/2024 11:00 AM EST Office Visit Sleep Disorders Ctr [facility] 132 [facility] [place] [address] Christina Birch DO 132 [facility] [place] [address] 11/04/2024 9:30 AM EST Office Visit Gastroenterology, [facility] 132 [facility] [place] [address] Tia Taylor CRNP 132 [facility] [place] [address] 11/27/2024 9:40 AM EST Office Visit Nephrology, [facility] [address] [place] [address] Fidelina Baumann MD [address] [place] [address] Scheduled Procedures Name Priority Associated Diagnoses Date/Ti [...] Additional history exists CKD PHOS USE SMARTSET 14645 06/18/202405/26, 06/16/2023, 06/15/2023, Additional history exists HbA1c 08/01/2024 01/30/2024, 08/25, 07/31/2023, Additional history exists Diabetic Eye Exam 09/13/2024 09/13/2023, , 09/13/2023, Additional history exists B-12 09/18/2024 09/18/2023, 08/24, 2020, Additional history exists GFR 11/01/2024 05/01/2024, 12/23, 10/15/2023, Additional history exists Albumin/Creatinine Ratio 01/07/2025 024, 03/09/2023, 12/22/2022, Additional history exists CKD HGB USE SMARTSET 81189 01/07/202501/07, 01/08/2024, 10/15/2023, Additional history exists TSH [...] this encounter Medical Devices Implanted Type Area Pill Coater Device Identifier Shelf Expiration Date Model / Serial / Lot Cath Roselia Single Lumen - [id number] Implanted:Qty : 1 on 03/12/2008 at OR [facility] Left: Chest [facility] *DO NOT USE* 07/25/2012 21-4053-24 / / [id number] Sut Steel 6 M654g - [id number] Implanted:Qty : 1 on 11/01/2010 at OR [facility] N/A: Chest DO NOT USE M654G / / Sut Steel 6 M654g - [id number] Implanted:Qty : 1 on 11/01/2010 at OR [facility] N/A: Chest DO NOT USE M654G / / Valve Tarsha Aortic [id number] - [id number] Implanted:Qty : 1 on 11/01/2010 at OR [facility] N/A: Heart [employer] DANIEL 05/20/2012 2800TFX-25 / / [id number] Mesh Soft [id number] - [id number] Implanted:Qty : 1 on 10/10/2019 by Gigi Hendrickson MD at [place] [facility] N/A: Abdomen CR BARD : DAVOL [id number] 05/21/2024 [id number] / / [id number] Lens 22.5 Sn60wf - [id number] - [id number] Implanted:Qty : 1 on 09/15/2020 by Cece Roland MD at [facility] Right: Eye IVA : SURGICAL [id number] 05/13/2025 SN60 WF.225 / [id number] / [id number] Lens 21.5 Sn60wf - [id number] - [id number] Implanted:Qty : 1 on 12/19/2023 by Ramsey Burnett DO at OR [facility] Left: Eye IVA : SURGICAL 12/03/2024 SN60WF.2 15 / [id number] / documented as of this encounter [...] statute hierarchy) Jovita Yamile Adult Child Health Building Drafter resentative (appointed verbally by patient or by statute hierarchy) [email or web address] Care Teams Seat Cover Installer Relationship Specialty Start Date End Date Gregory Rausch MD [address] [place] [address] PCP - General Family Medicine 02/12/20 documented as of this encounter
--- OUTSIDE RECORDS SUMMARY | 2024-06-05 14:40 | External Medical Summary | Summary of Care ---
Author Name Unknown Organization [facility] Address [address] [place] [address] Phone [phone] Care Team Providers Care Attendance Officer Name Role Phone Gregory Rausch MD Primary Care Provider [phone] Reason for Visit * Reason Onset Date Comments Med Request 05/05/2024 Encounter Details Date Type Department Care Team (Late st Contact Info) Description 05/05/2024 Telephone Family Practice [facility] [address] [place] [address] Gregory Rausch MD [address] [place] [address] Med Request Allergies Active Allergy [...] (Glucose)Indications :DM type 2, not at goal ([facility]) 3 every 15 minutes until [...] heart failure with preserved ejection fraction (HFpEF) ([facility]) Take 1 Tablet by mouth in the morning and 1 Tablet before bedtime. 180 Tablet 3 01/22/2024 Active BD Pen Needle Short U/F 31G X 8 MMIndications:Type 2 diabetes mellitus with hemoglobin A1c goal of less than 7.0% ([facility]),Type 2 diabetes mellitus with stage 3a chronic kidney disease, with long-term current use of insulin ([facility]) Use with insulin 4 times [...] hemoglobin A1c goal of less than 7.0% ([facility]),Type 2 diabetes mellitus with stage 3a chronic kidney disease, with long-term current use of insulin ([facility]) Inject 36 Units under the skin in the morning. 6 mL 2 03/14/2024 Active Insulin Aspart 100 UNIT/ML Injection Solution (NovoLOG)Indications :Type 2 diabetes mellitus with hemoglobin A1c goal of less than 7.0% ([facility]) Use up to 50 units per day in Omnipod. 03/31/2024 Active Omnipod 5 G6 Intro (Gen 5) Kit Use as directed. Use to delivery insulin via insulin pump 1 Kit 5 04/10/2024 Active Nystatin 835432 UNIT/GM External Powder (Nystop)Indications: Candidal intertrigo APPLY TOPICALLY TO AFFECTED AREA 3 TIMES A DAY. 60 g 1 04/14/2024 Active Pbcrsqvjpi-Pegwtfn-D affeine 50-325-40 MG Oral Capsule (Fiorinal)Indication s:Acute [...] eye 09/28/2020 Coronary artery disease invo lving [place] coronary artery of [place] heart without angina pectoris 12/16/2019 Last Assessment [...] 12/21/2016 Diabetes mellitus 01/05/2014 12/21/2016 LEYVA RESEARCH OTHER*[id number] 01/05/2014 12/21/2016 Axillary pain 11/03/2013 12/21/2016 Obesity, [...] 09/201008/26/2011 12/21/2016 FOLLOWING SURGERY, UNSPECIFI ED ([facility] BSO 08/25/2011) 08/26/2011 12/21/2016 ADVANCE DIRECTIVE INFORMATION 04/17/2011 12/21/2016 Overview: Yes, Patient instructed to provide copy of advance directive for provider to review and to be scanned into Electronic Medical Record ADVANCE DIRECTIVE INFORMATION 03/01/2011 12/21/2016 Overview: Yes, Patient instructed to provide copy of advance directive for provider to review and to be scanned into Electronic Medical Record [facility] V710 Clinical Trial*[id number] 12/22/2010 04/14/2011 S/P aortic valve replacement 12/01/2010 08/26/2011 S/P AORTIC VALVE REPLACEMENT - #25 pericardial Mc valve 11/01/2010 06/28/2018 Overview: Aortic valve replacement with #25 pericardial Mc valve, model 2800TFX, serial number [id number] (Dr. Walker) [facility] V710 Clinical Trial*[id number] 10/18/2010 11/21/2010 Type 2 diabetes mellitus wit [...] 06/07/2018,01/08/20 18,12/05/2017,06/15,10/27/2013,09/12/2013 Pneumococcal Conjugate Vacci ne, 20-valent ([id number]) 06/22/2023 Pneumococcal Polysaccharide PPV23 (Pneumovax) 01/02/2008 Seasonal [...] No 04/08/2024 Does the household have a [facility] source of income? (Household - for [...] encounter Miscellaneous Notes * Telephone Encounter - Briseida Kang LPN - 05/05/2024 2:34 PM EDT duplicate * Telephone Encounter - Ariana Foster CPhT - 05/05/2024 10:46 AM EDT Patient requesting refills for Doxycycline Hyclate 100 MG . Upon chart review, medication is listedas as of 02/23/24 . Please advise if you wish to continue this therapy for the patient. Thank you, Ariana Foster CPhT Labour Market Economist II [facility] 05/05/2024,10:46 AM documented in this encounter Plan of Treatment Upcoming Encounters Date Type Department Care Team (Late st Contact Info) Description 05/08/2024 10:00 AM EDT Home Visit [facility] [address] [place] [address] Zurdo Christina, PRABHA [address] [place] [address] 05/14/2024 9:00 AM EDT Imaging Radiology [facility] 1st [facility] [address] [place] [address] 05/15/2024 1:00 PM EDT Office Visit Pharmacy, [facility] [place] [address] [facility] [place] [address] Pharmacist1, [facility] [address] [facility] [place] [address] 06/02/2024 9:30 AM EDT Imaging Radiology [facility] [address] [facility] [place] [address] 08/12/2024 9:20 AM EST Office Visit Family Practice [facility] [address] [facility] [place] [address] Gregory Rausch MD [address] [facility] [place] [address] 10/30/2024 9:00 AM EST Office Visit Neurology [facility] [address] [place] [address] Sandy Juárez PA-C [address] [facility] [place] [address] 11/03/2024 11:00 AM EST Office Visit Sleep Disorders Ctr [facility] [address] [facility] [place] [phone] Christina Birch DO [facility] [address] 11/04/2024 9:30 AM EST Office Visit Gastroenterology, [facility] [address] [facility] [place] [address] Tia Taylor CRNP [address] [facility] [address] 11/27/2024 9:40 AM EST [facility] [address] [facility] [place] [address] Fidelina Baumann MD [address] [facility] [place] [address] Scheduled Procedures Name Priority Associated Diagnoses Date/Ti [...] Additional history exists CKD PHOS USE SMARTSET 37053 06/18/202405/26, 06/16/2023, 06/15/2023, Additional history exists HbA1c 08/01/2024 01/30/2024, 08/25, 07/31/2023, Additional history exists Diabetic Eye Exam 09/13/2024 09/13/2023, , 09/13/2023, Additional history exists B-12 09/18/2024 09/18/2023, 08/24, 2020, Additional history exists GFR 11/01/2024 05/01/2024, 12/23, 10/15/2023, Additional history exists Albumin/Creatinine Ratio 01/07/2025 024, 03/09/2023, 12/22/2022, Additional history exists CKD HGB USE SMARTSET 27725 01/07/202501/07, 01/08/2024, 10/15/2023, Additional history exists TSH [...] this encounter Medical Devices Implanted Type Area Asbestos Brake Lining Finisher Device Identifier Shelf Expiration Date Model / Serial / Lot Cath Roselia Single Lumen - [id number] Implanted:Qty : 1 on 03/12/2008 at OR [facility] Left: Chest [employer] *DO NOT USE* 07/25/2012 21-4053-24 / / [id number] Sut Steel 6 M654g - [id number] Implanted:Qty : 1 on 11/01/2010 at OR [facility] N/A: Chest DO NOT USE M654G / / Sut Steel 6 M654g - [id number] Implanted:Qty : 1 on 11/01/2010 at OR [facility] N/A: Chest DO NOT USE M654G / / Valve Tarsha Aortic [id number] - [id number] Implanted:Qty : 1 on 11/01/2010 at OR [facility] N/A: Heart [employer] DANIEL 05/20/2012 2800TFX-25 / / [id number] Mesh Soft [id number] - [id number] Implanted:Qty : 1 on 10/10/2019 by Gigi Hendrickson [place] [facility] [place]A: Abdomen CR BARD : DAVOL [id number] 05/21/2024 [id number] / / [id number] Lens 22.5 Sn60wf - [id number] - [id number] Implanted:Qty : 1 on 09/15/2020 by Renaldo Cook, Cece Acosta MD at [facility] Right: Eye IVA : SURGICAL [id number] 05/13/2025 SN60 WF.225 / [id number] / [id number] Lens 21.5 Sn60wf - [id number] - [id number] Implanted:Qty : 1 on 12/19/2023 by Ramsey Burnett DO at OR [facility] Left: Eye IVA : SURGICAL 12/03/2024 SN60WF.2 15 / [id number] / documented as of this encounter [...] statute hierarchy) Jovita Ovalle Adult Child Health Food And Beverage Service Manager resentative (appointed verbally by patient or by statute hierarchy) [email or web address] Care Teams Attendance Officer Relationship Specialty Start Date End Date Gregory Rausch MD [address] [place] [address] PCP - General Family Medicine 02/12/20 documented as of this encounter
--- OUTSIDE RECORDS SUMMARY | 2024-06-05 14:40 | External Medical Summary | Summary of Care ---
Author Name Unknown Organization [facility] Address [address] [facility] [place] [address] Phone [phone] Care Team Providers Care Low Pressure Firer Name Role Phone Gregory Rausch MD Primary Care Provider [phone] Reason for Visit * Reason Comments Follow Up Pt here to f/u for c hronic diarrhea. Pt c/o abd cramping and tenderness. Pt has a hx of Cdiff and SPRAGUE. [facility] health nurse got a stool sample from the pt this morning. * Evaluate & Treat - Unlimited Visits (Within 10 days (routine)) - Authorized Specialty Diagnoses / Procedures Referred By Contac t Referred To Contact Gastroenterology Diagnoses Chronic diarrhea Gregory Rausch MD [address] [place] [address] Referral ID Status Reason Start Date Expiration Date Visits Requested Visits Authorized [id number] Authorized Specialty Services Required 03/31/[phone] Encounter Details Date Type Department Care Team (Latest Contact Info) Description 05/01/2024 12:00 PM EDT Office Visit Gastroenterology, [facility] [address] [place] [address] Tia Taylor CRNP [address] [address] Chronic diarrhea*; Liver cirrhosis secondary to nonalcoholic steatohepatitis ([place]) (HCC) Allergies Active Allergy Reactions Criticality Noted Date Comments Adhesive Tape 07/02/2017 Can tolerate band-aids Glycerin Other (Please comment) 03/12/2008 Topical agents with glycein-burning & itching Lactose 12/09/2014 Dairy - gas Lisinopril Cough 01/21/2010 Monosodium Glutamate Edema Other 03/12/2008 Hands and feet Penicillins Rash 11/14/2007 documented as of this encounter (statuses as of 05/01/2024) Medications Medication Sig Dispensed Refills Start Date [...] with preserved ejection fraction (HFpEF) ([facility]) Take 1 Tablet by mouth in the morning and 1 Tablet before bedtime. 180 Tablet 3 01/22/2024 Active BD Pen Needle Short U/F 31G X 8 MMIndications:Type 2 diabetes mellitus with hemoglobin A1c goal of less than 7.0% ([facility]),Type 2 diabetes mellitus with stage 3a chronic kidney disease, with long-term current use of insulin ([facility]) Use with insulin 4 times [...] :Heart failure, systolic, due to idiopathic cardiomyopathy ([facility]),S/P aortic valve replacement,HTN, goal below 140/80,Dyslipidemia, goal LDL below 70 Take 1 tablet by mouth daily to prevent heart attack/stroke, protect kidney, and cholesterol 90 Tablet 2 01/10/2024 Active Meclizine HCl 25 MG Oral Tablet (Antivert)Indication s:Muscle tension headache Take 2 Tablets by mouth 2 times a day. 360 Tablet 2 01/10/2024 Active Metoprolol Tartrate 25 MG Oral Tablet (Lopressor) Take 1 Tablet by mouth in the morning and 1 Tablet before bedtime. 60 Tablet 5 01/10/2024 Active Gabapentin 300 MG Oral Capsule [...] goal of less than 7.0% ([facility]),Type 2 diabetes mellitus with stage 3a chronic kidney disease, with long-term current use of insulin ([facility]) Inject 36 Units under the skin in the morning. 6 mL 2 03/14/2024 Active Insulin Aspart 100 UNIT/ML Injection Solution (NovoLOG)Indications :Type 2 diabetes mellitus with hemoglobin A1c goal of less than 7.0% ([facility]) Use up to 50 units per day in Omnipod. 03/31/2024 Active Omnipod 5 G6 Intro (Gen 5) Kit Use as directed. Use to delivery insulin via insulin pump 1 Kit 5 04/10/2024 Active Nystatin 324050 UNIT/GM External Powder (Nystop)Indications: Candidal intertrigo APPLY TOPICALLY TO AFFECTED AREA 3 TIMES A DAY. 60 g 1 04/14/2024 Active Ywmmdpxdae-Aggamtq-N affeine 50-325-40 MG Oral Capsule (Fiorinal)Indication s:Acute intractable tension-type headache Take 1 Capsule by mouth every 4 hours as needed for Headache. 30 Capsule 04/18/2024 Active Loperamide HCl 2 MG Oral Capsule (Imodium A-D) Take 1 Capsule by mouth 4 times a day as needed for Diarrhea. Active documented as of this encounter (statuses as of 05/01/2024) Active Problems Problem Noted Date Diagnosed Date [...] eye 09/28/2020 Coronary artery disease invo lving [place] coronary artery of [place] heart without angina pectoris 12/16/2019 Last Assessment [...] anxiety disorder 09/20/2018 H/O bilateral mastectomy 06/28/2018 SPRAGUE (nonalcoholic steatohepatitis) 06/28/2018 Last Assessment & Plan: [...] as of this encounter (statuses as of 05/01/2024) Resolved Problems Problem Noted Date Diagnosed Date [...] 07/31/2023 Liver cirrhosis secondary to nonalcoholic steatohepatitis ([place]) 03/16/2023 04/18/2023 Last Assessment & Plan: Compliant [...] mgmt 02/19/2014 12/21/2016 Diabetes mellitus 01/05/2014 12/21/2016 [place] RESEARCH OTHER*[id number] 01/05/2014 12/21/2016 Axillary pain 11/03/2013 12/21/2016 Obesity, [...] 09/201008/26/2011 12/21/2016 FOLLOWING SURGERY, UNSPECIFI ED ([facility] BSO 08/25/2011) 08/26/2011 12/21/2016 ADVANCE DIRECTIVE INFORMATION 04/17/2011 12/21/2016 Overview: Yes, Patient instructed to provide copy of advance directive for provider to review and to be scanned into Electronic Medical Record ADVANCE DIRECTIVE INFORMATION 03/01/2011 12/21/2016 Overview: Yes, Patient instructed to provide copy of advance directive for provider to review and to be scanned into Electronic Medical Record [facility] V710 Clinical Trial*[id number] 12/22/2010 04/14/2011 S/P aortic valve replacement 12/01/2010 08/26/2011 S/P AORTIC VALVE REPLACEMENT - #25 pericardial [place] valve 11/01/2010 06/28/2018 Overview: Aortic valve replacement with #25 pericardial Hernandez valve, model 2800TFX, serial number [id number] (Dr. Walker) [facility] V710 Clinical Trial*[id number] 10/18/2010 11/21/2010 Type 2 diabetes mellitus wit [...] as of this encounter (statuses as of 05/01/2024) Immunizations Name Administration Dates Next Due COVID-19 mRNA, LNP-s, No Pre serve, 2-Dose Series (Moderna) 10/25/2021,02/16/2021,01/18/2021 HEP A - Hepatitis A (Adult > 18 yrs) 06/07/2018, 12/05/2017 Hepatitis B, 20+ yrs 06/07/2018,01/08/20 18,12/05/2017,06/15,10/27/2013,09/12/2013 Pneumococcal Conjugate Vacci ne, 20-valent ([id number]) 06/22/2023 Pneumococcal Polysaccharide PPV23 (Pneumovax) 01/02/2008 Seasonal [...] Sign Reading Time Taken Comments Blood Pressure 124/66 05/01/2024 11:25 AM EDT Pulse - - Temperature 36.7 C (98.1 F) 05/01/2024 11:25 AM E DT Respiratory Rate - - Oxygen Saturation - - Inhaled Oxygen Concentration - - Weight 68.9 kg (152 lb) 05/01/2024 11:25 AM EDT Height - - Body Mass Index 30.7 03/24/2024 11:11 AM EDT documented in this [...] as of this encounter Progress Notes * Tia Taylor CRNP - 05/01/2024 11:37 AM EDT CC: Recheck cirrhosis; diarrhea x 2-3 wks, hx of C-diff. HPI: Recall that Ms. Jovita Rose is a 63 yr old female patient of Dr. Nava with a history of DM 2, HLD, hypothyroidism, DANYELLE on CPAP, diastolic CHF, aortic stenosis S/P TAVR 2010, HTN, CAD S/P HOMER on Plavix, [place], CKD 3, colon cancer age 43 S/P colon resection, breast cancer S/P bilateral mastectomies chemoradiation in 2007 and bipolar and schizoaffective disorders. Most recent imaging and endoscopy in May 2023 during hospitalization for pneumoperitoneum at [facility] then transferred to [facility] as EGD w gastric necrosis underwent exp lap. A few days after discharge, admitted to [facility]. Also hx of C-diff. 5 liquid BMs/day x 2 wks. Muntiple water supply. Collected sample for C-diff wascollected by home health this morning. Her care provider is w her here today Stephanie. Lives at [facility] and is moving to [facility] in May. No blood in Bms, no black BMs. No ascites;minimal peripheral edema. No confusion. EGD Jun 06 2023: The examined esophagus was normal. NG in place. - Localized severe mucosal changes suggestive of necrosis on the greater curvature of the stomach. No metallic foreign bodies seen within the lumen of the stomach. 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 EGD Jun 04, 2023: - Normal esophagus. - Erythematous mucosa in the gastric body. - Normal duodenal bulb and second portion of the duodenum. - No specimens collected. Colonoscopy Aug 2022 Six 6 mm polyps in the ascending colon, removed with a cold snare. Resected and retrieved. - Diverticulosis in the sigmoid colon. - Non-bleeding internal hemorrhoids. REc surveillance May 2025 EXAM: BP 124/66 | Temp 36.7 C (98.1 F) | Wt 68.9 kg (152 lb) | LMP 04/07/2011 | BMI 30.70 kg/m | BSA 1.69 m GENERAL: 63 year old female well developed and well nourished in no acute distress; no evidence of confusion today SKIN: + multiple small areas of ecchymosis, otherwise no rashes, ulcers, or spider angiomata HEENT: normocephalic, sclera clear, pharynx normal NECK: supple, no lymphadenopathy, no masses or thyroid enlargement LUNGS: clear to auscultation anterior and posterior HEART: regular rate & rhythm, no murmurs and no gallops ABDOMEN: multiple abdominal scars, normo-active bowel sounds, soft, non-tender, non-distended no masses, no hepatosplenomegaly, no rebound or guarding, no bruits, no appreciable ascites EXTREMITIES: minimal bilat lower leg edema, no palmar erythema, no skin discoloration, no clubbing,no cyanosis NEURO: no lateralizing findings, Sensory/Motor grossly normal IMPRESSION/RECOMMENDATIONS: 63 year old female with Diarrhea (Primary) - C-diff already orderedcollected, will add: - GASTROINTESTINAL PATHOGEN PANEL, STOOL; Future; Expected date: 05/01/2024 Liver cirrhosis secondary to nonalcoholic steatohepatitis ([place]) - appears well compensated. Already had blood drawn today, so will get MELD labs in July. - US ABDOMEN LIMITED; Future; Expected date: 05/08/2024 - CBC WITH WBC DIFFERENTIAL; Future; Expected date: 06/02/2024 - PT INR; Future; Expected date: 07/28/2024 - COMPREHENSIVE METABOLIC PANEL; Future; Expected date: 07/28/2024 Will address diarrhea once C-diff and GI path results are back. If C-diff (+) will need a long Vanco taper. Recheck in GI in 6m. I spent a total of 35 minutes on the date of service in review of patient's record, and previously obtained information in person and appropriate medical visit, discussion and education of plan, withpatient and/or caregiver, placing orders for tests/referral/procedures as medically necessary and documentation of pertinent clinical information in patient's medical records for their visit today. Thank you for the opportunity to be involved in the care of this patient. HIRA Trevino documented in this encounter Nursing Notes * Padma Sanchez CMA - 05/01/2024 11:24 AM EDT Chief Complaint Patient presents with Follow Up Pt here to f/u for chronic diarrhea. Pt c/o abd cramping and tenderness. Pt has a hx of Cdiff and [place]. [facility] health nurse got a stool sample from the pt this morning. documented in this encounter Plan of Treatment Upcoming Encounters Date Type Department Care Team (Late st Contact Info) Description 05/14/2024 9:00 AM EDT Imaging Radiology [facility] 1st [facility] [address] [facility] [place] [address] 06/02/2024 9:30 AM EDT Imaging Radiology [facility] [address] [facility] [place] [address] 08/12/2024 9:20 AM EST Office Visit Family Practice [facility] [address] [facility] [place] [address] Gregory Rausch MD [address] [facility] [place] [address] 10/30/2024 9:00 AM EST Office Visit Neurology [facility] [address] [place] [address] Sandy Juárez PA-C [address] [place] [address] 11/03/2024 11:00 AM EST Office Visit Sleep Disorders [facility] [address] [facility] [place] [phone] Christina Birch DO [address] [facility] [address] 11/04/2024 9:30 AM EST Office Visit Gastroenterology, [facility] [address] [facility] [place] [address] Tia Taylor CRNP [address] [place] [address] 11/27/2024 9:40 AM EST Office Visit Nephrology, [facility] [address] [place] [address] Fidelina Baumann MD [address] [facility] [address] [place] [address] Scheduled Orders Name Type Priority Associated Diagnoses Orde r Schedule US ABDOMEN LIMITED Medical Imaging Routine Liver cirrhosis secondary to nonalcoholic steatohepatitis ([place]) (HCC) Expected: 05/08/2024 (Approximate), Expires: 06/01/2025 PT INR Lab Routine Liver cirrhosis secondary to nonalcoholic steatohepatitis ([place]) (HCC) Expected: 07/28/2024 (Approximate), Expires: 05/01/2025 COMPREHENSIVE METABOLIC PANEL Lab Routine Liver cirrhosis secondary to nonalcoholic steatohepatitis ([place]) (HCC) Expected: 07/28/2024 (Approximate), Expires: 05/01/2025 GASTROINTESTINAL PATHOGEN PANEL, STOOL Lab Routine Chronic diarrhea Expected: 05/01/2024, Expires: 05/01/2025 CBC WITH WBC DIFFERENTIAL Lab Routine Liver cirrhosis secondary to nonalcoholic steatohepatitis ([place]) (HCC) Expected: 08/04/2024, Expires: 05/01/2025 Scheduled Procedures Name Priority Associated Diagnoses Date/Ti [...] Additional history exists CKD PHOS USE SMARTSET 82054 06/18/202405/26, 06/16/2023, 06/15/2023, Additional history exists GFR 07/09/2024 01/08/2024, 09/25, 08/02/2023, Additional history exists HbA1c 08/01/2024 01/30/2024, 08/25, 07/31/2023, Additional history exists Diabetic Eye Exam 09/13/2024 09/13/2023, , 09/13/2023, Additional history exists B-12 09/18/2024 09/18/2023, 08/24, 2020, Additional history exists Albumin/Creatinine Ratio 01/07/2025 024, 03/09/2023, 12/22/2022, Additional history exists CKD HGB USE SMARTSET 00857 01/07/202501/07, 01/08/2024, 10/15/2023, Additional history exists TSH [...] this encounter Medical Devices Implanted Type Area Final Inspector Balance Wheel Device Identifier Shelf Expiration Date Model / Serial / Lot Cath Roselia Single Lumen - [id number] Implanted:Qty : 1 on 03/12/2008 at OR [facility] Left: Chest [facility] *DO NOT USE* 07/25/2012 21-4053-24 / / [id number] Sut Steel 6 M654g - [id number] Implanted:Qty : 1 on 11/01/2010 at OR [facility] N/A: Chest DO NOT USE M654G / / Sut Steel 6 M654g - [id number] Implanted:Qty : 1 on 11/01/2010 at OR [facility] N/A: Chest DO NOT USE M654G / / Valve Tarsha Aortic [id number] - [id number] Implanted:Qty : 1 on 11/01/2010 at OR [facility] N/A: Heart [employer] DANIEL 05/20/2012 2800TFX-25 / / [id number] Mesh Soft [id number] - [id number] Implanted:Qty : 1 on 10/10/2019 by Gigi Hendrickson [place] [facility] [place] Abdomen CR BARD : DAVOL [id number] 05/21/2024 [id number] / / [id number] Lens 22.5 Sn60wf - [id number] - [id number] Implanted:Qty : 1 on 09/15/2020 by Renaldo Cook, Cece Acosta MD at [facility] Right: Eye IVA : SURGICAL [id number] 05/13/2025 SN60 WF.225 / [id number] / [id number] Lens 21.5 Sn60wf - [id number] - [id number] Implanted:Qty : 1 on 12/19/2023 by Ramsey Burnett DO at OR [facility] Left: Eye IVA : SURGICAL 12/03/2024 SN60WF.2 15 / [id number] / documented as of this encounter Visit Diagnoses Diagnosis Chronic diarrhea- Primary Diarrhea Liver cirrhosis secondary to nonalcoholic steatohepatitis ([place]) (HCC) documented in this encounter Additional Health Concerns Infection Onset Date Last Indicated Resolved Time C. difficile Rule-Out 05/01/2024 05/01/2024 documented as of this encounter [...] statute hierarchy) Jovita Ovalle Adult Child Health Ui Engineer resentative (appointed verbally by patient or by statute hierarchy) Care Teams Low Pressure Firer Relationship Specialty Start Date End Date Gregory Rausch MD [address] [place] [address] PCP - General Family Medicine 02/12/20 documented as of this encounter
--- OUTSIDE RECORDS SUMMARY | 2024-06-05 14:41 | External Medical Summary | Summary of Care ---
Author Name Unknown Organization [facility] Address [address] [place] [address] Phone [phone] Care Team Providers Care Clerical Manager Name Role Phone Gregory Rausch MD Primary Care Provider [phone] Reason for Visit * Reason Onset Date Comments Appointment 04/17/2024 Encounter Details Date Type Department Care Team (Late st Contact Info) Description 04/17/2024 Telephone [facility] [place] [address] [place] [address] Services, Scheduling [address] [place] [address] Appointment (//) Allergies Active Allergy Reactions Criticality Noted Date Comments Adhesive Tape 07/02/2017 Can tolerate band-aids Glycerin Other (Please comment) 03/12/2008 Topical agents with glycein-burning & itching Lactose 12/09/2014 Dairy - gas Lisinopril Cough 01/21/2010 Monosodium Glutamate Edema Other 03/12/2008 Hands and feet Penicillins Rash 11/14/2007 documented as of this encounter (statuses as of 04/23/2024) Medications Medication Sig Dispensed Refills Start Date [...] type 2, not at goal ([facility]) 3 every 15 minutes until [...] Capsules by mouth in the morning. Active Eubios Therapeutica Private LimitedTouch Verio In Vitro Strip (Glucose Blood) Use [...] insulin ([facility]) Inject 36 Units under the [...] pump 1 Kit 5 04/10/2024 Active Nystatin 165055 UNIT/GM External Powder (Nystop)Indications :Candidal intertrigo APPLY TOPICALLY TO AFFECTED AREA 3 TIMES A DAY. 60 g 1 04/14/2024 Active Butalbital-Aspirin- Caffeine 50-325-40 MG Oral Capsule (Fiorinal)Indicatio ns:Acute intractable tension-type headache Take 1 Capsule by mouth every 4 hours as needed for Headache for up to 5 days. 30 Capsule 04/01/2024 04/18/20 24 Discontinu ed(Refill) documented as of this encounter (statuses as of 04/23/2024) Active Problems Problem Noted Date Diagnosed Date [...] as of this encounter (statuses as of 04/23/2024) Resolved Problems Problem Noted Date Diagnosed Date [...] 12/21/2016 Diabetes mellitus 01/05/2014 12/21/2016 LEYVA RESEARCH OTHER*[id number] 01/05/2014 12/21/2016 Axillary pain 11/03/2013 12/21/2016 Obesity, [...] to be scanned into Electronic Medical Record [employer] V710 Clinical Trial*[id number] 12/22/2010 04/14/2011 S/P aortic valve replacement 12/01/2010 08/26/2011 S/P AORTIC VALVE REPLACEMENT - #25 pericardial Hernandez valve 11/01/2010 06/28/2018 Overview: Aortic valve replacement with #25 pericardial Hernandez valve, model 2800TFX, serial number [id number] (Dr. Walker) Merck V710 Clinical Trial*[id number] 10/18/2010 11/21/2010 Type 2 diabetes mellitus wit [...] as of this encounter (statuses as of 04/23/2024) Immunizations Name Administration Dates Next Due COVID-19 mRNA, LNP-s, No Pre serve, 2-Dose Series (Moderna) 10/25/2021,02/16/2021,01/18/2021 HEP A - Hepatitis A (Adult > 18 yrs) 06/07/2018, 12/05/2017 Hepatitis B, 20+ yrs 06/07/2018,01/08/20 18,12/05/2017,06/15,10/27/2013,09/12/2013 Pneumococcal Conjugate Vacci ne, 20-valent ([id number]) 06/22/2023 Pneumococcal Polysaccharide PPV23 (Pneumovax) 01/02/2008 Seasonal [...] Miscellaneous Notes * Telephone Encounter - Yolis Mejia LPN - 04/23/2024 4:15 PM EDT Return call received from pt made aware of 05/08/2024 appt pt is in agreement * Telephone Encounter - Margaux Ugalde OSA - 04/17/2024 12:30 PM EDT Email temp request to cx and rs the appt on 04/25@10 and I found next available to be 05/08@ and called but had to lmom of change documented in this encounter Plan of Treatment Upcoming Encounters Date Type Department Care Team (Late st Contact Info) Description 05/01/2024 9:30 AM EDT Home Visit Care Coordination and Integration [address] [place] [address] Angelica Navas, Community Health Angiographer [address] [place] [address] 05/08/2024 4:00 PM EDT Home Visit [facility] [address] [place] [address] Zurdo Christina, RN 132 [facility] [place] [address] 05/09/2024 9:00 AM EDT Imaging Radiology [facility] 1st Floor, [place] 132 [facility] [place] [address] 06/03/2024 10:00 AM EDT Office Visit Gastroenterology, [facility] 132 [facility] [place] [address] Arina Knapp PA-C [address] [place] [address] [place] [address] 07/17/2024 9:30 AM EDT Office Visit Cardiology, [facility] 132 [facility] [place] [address] Roberto Carlos Muniz, DO [facility] [place] [address] 08/12/2024 9:20 AM EST Office Visit Family Practice [facility] [address] [place] [address] Gregory Rausch MD [address] [place] [address] 10/30/2024 9:00 AM EST Office Visit Neurology [facility] [address] [place] [address] Sandy Juárez PA-C [facility] [place] [address] 11/03/2024 11:00 AM EST Office Visit Sleep Disorders Ctr [facility] 132 [facility] [place] [phone] Christina Birch DO 132 [facility] [place] [address] 11/27/2024 9:40 AM EST Office Visit Nephrology, [facility] 200 [facility] [place] [address] Fidelina Baumann MD 200 [facility] [place] [address] Scheduled Procedures Name Priority Associated Diagnoses Date/Ti [...] Additional history exists CKD PHOS USE SMARTSET 96908 06/18/202405/26, 06/16/2023, 06/15/2023, Additional history exists GFR 07/09/2024 01/08/2024, 09/25, 08/02/2023, Additional history exists HbA1c 08/01/2024 01/30/2024, 08/25, 07/31/2023, Additional history exists Diabetic Eye Exam 09/13/2024 09/13/2023, , 09/13/2023, Additional history exists B-12 09/18/2024 09/18/2023, 08/24, 2020, Additional history exists Albumin/Creatinine Ratio 01/07/2025 024, 03/09/2023, 12/22/2022, Additional history exists CKD HGB USE SMARTSET 98344 01/07/202501/07, 01/08/2024, 10/15/2023, Additional history exists TSH [...] this encounter Medical Devices Implanted Type Area Manager Flight Device Identifier Shelf Expiration Date Model / Serial / Lot Cath Roselia Single Lumen - [id number] Implanted:Qty : 1 on 03/12/2008 at OR [facility] Left: Chest [facility] *DO NOT USE* 07/25/2012 21-4053-24 / / [id number] Sut Steel 6 M654g - [id number] Implanted:Qty : 1 on 11/01/2010 at OR [facility] N/A: Chest DO NOT USE M654G / / Sut Steel 6 M654g - [id number] Implanted:Qty : 1 on 11/01/2010 at OR [facility] N/A: Chest DO NOT USE M654G / / Valve Tarsha Aortic [id number] - [id number] Implanted:Qty : 1 on 11/01/2010 at OR [facility] N/A: Heart [employer] DANIEL 05/20/2012 2800TFX-25 / / [id number] Mesh Soft [id number] - [id number] Implanted:Qty : 1 on 10/10/2019 by Gigi Hendrickson MD [place] [facility] [place]A: Abdomen CR BARD : DAVOL [id number] 05/21/2024 [id number] / / [id number] Lens 22.5 Sn60wf - [id number] - [id number] Implanted:Qty : 1 on 09/15/2020 by Cece Roland MD at OR [facility] Right: Eye IVA : SURGICAL [id number] 05/13/2025 SN60 WF.225 / [id number] / [id number] Lens 21.5 Sn60wf - [id number] - [id number] Implanted:Qty : 1 on 12/19/2023 by Ramsey Burnett DO at OR [facility] Left: Eye IVA : SURGICAL 12/03/2024 SN60WF.2 15 / [id number] / documented as of this encounter [...] statute hierarchy) Jovita Ovalle Adult Child Health Monogram Operator resentative (appointed verbally by patient or by statute hierarchy) [email or web address] Care Teams Clerical Manager Relationship Specialty Start Date End Date Gregory Rausch MD [address] [place] [address] PCP - General Family Medicine 02/12/20 documented as of this encounter
--- OUTSIDE RECORDS SUMMARY | 2024-06-05 14:41 | External Medical Summary | Summary of Care ---
Author Name Unknown Organization [facility] Address [address] [place] [address] Phone [phone] Care Team Providers Care Metal Grinder Name Role Phone Gregory Rausch MD Primary Care Provider [phone] Encounter Details Date Type Department Care Team (Late st Contact Info) Description 05/01/2024 9:30 AM EDT Home Visit Care Coordination and Integration [address] [place] [address] Angelica Navas, Community Health Cellar Hand [address] [place], [place] [id number] Allergies Active Allergy Reactions Criticality Noted Date [...] :DM type 2, not at goal ([facility]) 3 every 15 minutes until glucose [...] pump 1 Kit 5 04/10/2024 Active Nystatin 692192 UNIT/GM External Powder (Nystop)Indications: Candidal intertrigo APPLY TOPICALLY TO AFFECTED AREA 3 TIMES A DAY. 60 g 1 04/14/2024 Active Aitzlwxfpj-Zxjftit-B affeine 50-325-40 MG Oral Capsule (Fiorinal)Indication s:Acute intractable tension-type headache Take 1 Capsule by mouth every 4 hours as needed for Headache. 30 Capsule 04/18/2024 Active documented as of this encounter (statuses [...] eye 09/28/2020 Coronary artery disease invo lving [place] coronary artery of [place] heart without angina pectoris 12/16/2019 Last Assessment [...] 12/21/2016 Diabetes mellitus 01/05/2014 12/21/2016 LEYVA RESEARCH OTHER*[id number] 01/05/2014 12/21/2016 Axillary pain 11/03/2013 12/21/2016 Obesity, [...] 12/21/2016 FOLLOWING SURGERY, UNSPECIFI ED ([facility]SO 08/25/2011) 08/26/2011 12/21/2016 ADVANCE DIRECTIVE INFORMATION 04/17/2011 12/21/2016 Overview: Yes, Patient instructed to provide copy of advance directive for provider to review and to be scanned into Electronic Medical Record ADVANCE DIRECTIVE INFORMATION 03/01/2011 12/21/2016 Overview: Yes, Patient instructed to provide copy of advance directive for provider to review and to be scanned into Electronic Medical Record [facility] V710 Clinical Trial*[id number] 12/22/2010 04/14/2011 S/P aortic valve replacement 12/01/2010 08/26/2011 S/P AORTIC VALVE REPLACEMENT - #25 pericardial Mc valve 11/01/2010 06/28/2018 Overview: Aortic valve replacement with #25 pericardial Mc valve, model 2800TFX, serial number [id number] (Dr. Walker) [employer]ck V710 Clinical Trial*[id number] 10/18/2010 11/21/2010 Type 2 diabetes mellitus wit [...] 06/07/2018,01/08/20 18,12/05/2017,06/15,10/27/2013,09/12/2013 Pneumococcal Conjugate Vacci ne, 20-valent (Pdhqqja26) 06/22/2023 Pneumococcal Polysaccharide PPV23 (Pneumovax) 01/02/2008 Seasonal [...] Sign Reading Time Taken Comments Blood Pressure 120/60 05/01/2024 10:13 AM EDT Pulse 85 05/01/2024 10:13 AM EDT Temperature 36.7 C (98 F) 05/01/2024 10:13 AM EDT Respiratory Rate - - Oxygen Saturation 96% 05/01/2024 10:13 AM EDT Inhaled Oxygen Concentration - - [...] as of this encounter Progress Notes * Angelica Navas, Community Health Cellar Hand - 05/01/2024 9:44 AM EDT Telemedicine visit: No Community Health Cellar Hand (VALE) documentation: CHW 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 dirt bike mechanic requested that CHW get a stool sample from patient due to Dr Rausch putting in a order for one due to patient feeling like she has C-diff back. CHW will collect sample. Patient is moving to [facility] apartments at the end of this month. Has to be out of current apartment by May 24 and will be staying with family for that weekend and moving into new place May 25, Sunday. Patient is going to be away May 08- for [facility]. BP cuff is not charging and director career and CHW trouble shot it and it still will not charge. A new laborer wrecking and salvaging was sent and it still will not charge with new laborer wrecking and salvaging. Needs a new BP cuff sent out. Are using it until it does not work anymore. dirt bike mechanic reported that patient is constantly drinking gatorade and melba half and half sweet tea. Will not stop drinking it. Is away that it is making her sugar high. Requested to cancel [facility] nurse home visit due to being out of town that day and would like to reschedule this appointment. Angelica Navas- Community Health Worker 1 Support Services/[facility] [email or web address] documented in this encounter Plan of Treatment Upcoming Encounters Date Type Department Care Team (Late st Contact Info) Description 05/01/2024 11:20 AM EDT [facility] [address] [place] [phone] Yanelis Bach [address] [place] [address] 05/01/2024 12:00 PM EDT Office Visit Gastroenterology, [facility] 132 [facility] [place] [address] Tia Taylor CRNP 132 [facility] [place] [address] 05/14/2024 9:00 AM EDT Imaging Radiology [facility] [address] [facility] [place] [address] 08/12/2024 9:20 AM EST Office Visit Family Practice [facility] 132 [facility] [place] [address] Gregory Rausch MD 132 [facility] [place] [address] 10/30/2024 9:00 AM EST Office Visit Neurology [facility] 200 [facility] [place] [address] Sandy Juárez PA-C [address] [facility] [place] [address] 11/03/2024 11:00 AM EST Office Visit Sleep Disorders Ctr [facility] 132 [facility] [place] [phone] Christina Birch DO 132 [facility] [place] [address] 11/27/2024 9:40 AM EST Office Visit Nephrology, [facility] 200 [facility] [place] [address] Fidelina Baumann MD 200 [facility] [place] [address] Scheduled Procedures Name Priority Associated Diagnoses Date/Ti [...] Additional history exists CKD PHOS USE SMARTSET 42301 06/18/202405/26, 06/16/2023, 06/15/2023, Additional history exists GFR 07/09/2024 01/08/2024, 09/25, 08/02/2023, Additional history exists HbA1c 08/01/2024 01/30/2024, 08/25, 07/31/2023, Additional history exists Diabetic Eye Exam 09/13/2024 09/13/2023, , 09/13/2023, Additional history exists B-12 09/18/2024 09/18/2023, 08/24, 2020, Additional history exists Albumin/Creatinine Ratio 01/07/2025 024, 03/09/2023, 12/22/2022, Additional history exists CKD HGB USE SMARTSET 19148 01/07/202501/07, 01/08/2024, 10/15/2023, Additional history exists TSH [...] this encounter Medical Devices Implanted Type Area Pediatric Neuropsychologist Device Identifier Shelf Expiration Date Model / Serial / Lot Cath Roselia Single Lumen - [id number] Implanted:Qty : 1 on 03/12/2008 at OR [facility] Left: Chest [facility] *DO NOT USE* 07/25/2012 21-4053-24 / / [id number] Sut Steel 6 M654g - [id number] Implanted:Qty : 1 on 11/01/2010 at OR [facility] N/A: Chest DO NOT USE M654G / / Sut Steel 6 M654g - [id number] Implanted:Qty : 1 on 11/01/2010 at OR [facility] N/A: Chest DO NOT USE M654G / / Valve Tarsha Aortic [id number] - [id number] Implanted:Qty : 1 on 11/01/2010 at OR [facility] N/A: Heart [employer] DANIEL 05/20/2012 2800TFX-25 / / [id number] Mesh Soft [id number] - [id number] Implanted:Qty : 1 on 10/10/2019 [place] Gigi Hend[place] [facility] [place]A: Abdomen CR BARD : DAVOL [id number] 05/21/2024 [id number] / / [id number] Lens 22.5 Sn60wf - [id number] - [id number] Implanted:Qty : 1 on 09/15/2020 by Renaldo CookCece MD at OR [facility] Right: Eye IVA : SURGICAL [id number] 05/13/2025 SN60 WF.225 / [id number] / [id number] Lens 21.5 Sn60wf - [id number] - [id number] Implanted:Qty : 1 on 12/19/2023 by Ramsey Burnett DO at OR [facility] Left: Eye IAV : SURGICAL 12/03/2024 SN60WF.2 15 / [id number] / documented as of this encounter [...] statute hierarchy) Jovita Ovalle Adult Child Health Audio Director resentative (appointed verbally by patient or by statute hierarchy) [email or web address] Care Teams Metal Grinder Relationship Specialty Start Date End Date Gregory Rausch MD [address] [place] [address] PCP - General Family Medicine 02/12/20 documented as of this encounter
--- OUTSIDE RECORDS SUMMARY | 2024-06-05 14:41 | External Medical Summary | Summary of Care ---
Author Name Unknown Organization [facility] Address [address] [place] [address] Phone [phone] Care Team Providers Care Facility Maintenance Helper Name Role Phone Gregory Rausch MD Primary Care Provider [phone] Reason for Visit * Reason Comments Outpatient Testing Encounter Details Date Type Department Care Team (Late st Contact Info) Description 05/01/2024 11:20 AM EDT Laboratory Laboratory, [facility] [address] [place] [address] [facility] [address] [place] [address] C. difficile diarrhea; Memory changes; Cognitive changes Allergies Active Allergy Reactions Criticality [...] type 2, not at goal ([facility]) 3 every 15 minutes until glucose is [...] TO BREAKFAST OR OTHER MEDICATIONS 90 Tablet 01/10/2024 Active Aquaphor External Ointment Apply topically [...] ([facility]) Inject 36 Units under the skin in [...] pump 1 Kit 5 04/10/2024 Active Nystatin 174372 UNIT/GM External Powder (Nystop)Indications: Candidal intertrigo APPLY TOPICALLY TO AFFECTED AREA 3 TIMES A DAY. 60 g 1 04/14/2024 Active Zbkkifxpfk-Qcbjgyf-J affeine 50-325-40 MG Oral Capsule (Fiorinal)Indication s:Acute [...] eye 09/28/2020 Coronary artery disease invo lving [place] coronary artery of [place] heart without angina pectoris 12/16/2019 Last Assessment [...] 12/21/2016 Diabetes mellitus 01/05/2014 12/21/2016 LEYVA RESEARCH OTHER*[id number] 01/05/2014 12/21/2016 Axillary pain 11/03/2013 12/21/2016 Obesity, [...] UNSPECIFI ED ([facility] 08/25/2011) 08/26/2011 12/21/2016 ADVANCE DIRECTIVE INFORMATION 04/17/2011 12/21/2016 Overview: Yes, Patient instructed to provide copy of advance directive for provider to review and to be scanned into Electronic Medical Record ADVANCE DIRECTIVE INFORMATION 03/01/2011 12/21/2016 Overview: Yes, Patient instructed to provide copy of advance directive for provider to review and to be scanned into Electronic Medical Record [facility] V710 Clinical Trial*[id number] 12/22/2010 04/14/2011 S/P aortic valve replacement 12/01/2010 08/26/2011 S/P AORTIC VALVE REPLACEMENT - #25 pericardial Mc valve 11/01/2010 06/28/2018 Overview: Aortic valve replacement with #25 pericardial Mc valve, model 2800TFX, serial number [id number] (Dr. Walker) Merck V710 Clinical Trial*[id number] 10/18/2010 11/21/2010 Type 2 diabetes mellitus wit [...] 06/07/2018,01/08/20 18,12/05/2017,06/15,10/27/2013,09/12/2013 Pneumococcal Conjugate Vacci ne, 20-valent (Nmfkibi51) 06/22/2023 Pneumococcal Polysaccharide PPV23 (Pneumovax) 01/02/2008 Seasonal [...] Team (Late st Contact Info) Description 05/01/2024 12:00 PM EDT Office Visit Gastroenterology, [facility] 132 [facility] [place] [address] Tia Taylor CRNP 132 [facility] [place] [address] Arrived 05/14/2024 9:00 AM EDT Imaging Radiology [address] 132 [facility] [place] [address] 08/12/2024 9:20 AM EST Office Visit Family Practice [facility] 132 [facility] [place] [address] Gregory Rausch MD 132 [facility] [place] [address] 10/30/2024 9:00 AM EST Office Visit Neurology [facility] [address] [place] [address] Sandy Juárez PA-C [address] [place] [address] 11/03/2024 11:00 AM EST Office Visit Sleep Disorders Ctr [facility] 132 [facility] [place] [phone] Christina Birch DO 132 [facility] [place] [address] 11/27/2024 9:40 AM EST Office Visit Nephrology, [facility] 200 [facility] [place] [address] Fidelina Baumann MD 200 [facility] [place] [address] Pending Results Name Type Priority Associated Diagnoses Date /Time BASIC METABOLIC PANEL Lab Routine C. difficile diarrhea 05/01/2024 11:08 AM EDT 25-HYDROXY VITAMIN D Lab Routine Memory changes Cognitive changes 05/01/2024 11:08 AM EDT Scheduled Procedures Name Priority Associated Diagnoses Date/Ti [...] Additional history exists CKD PHOS USE SMARTSET 55034 06/18/202405/26, 06/16/2023, 06/15/2023, Additional history exists GFR 07/09/2024 01/08/2024, 09/25, 08/02/2023, Additional history exists HbA1c 08/01/2024 01/30/2024, 08/25, 07/31/2023, Additional history exists Diabetic Eye Exam 09/13/2024 09/13/2023, , 09/13/2023, Additional history exists B-12 09/18/2024 09/18/2023, 08/24, 2020, Additional history exists Albumin/Creatinine Ratio 01/07/2025 024, 03/09/2023, 12/22/2022, Additional history exists CKD HGB USE SMARTSET 50344 01/07/202501/07, 01/08/2024, 10/15/2023, Additional history exists TSH [...] this encounter Medical Devices Implanted Type Area Brand Marketing Specialist Device Identifier Shelf Expiration Date Model / Serial / Lot Cath Roselia Single Lumen - [id number] Implanted:Qty : 1 on 03/12/2008 at OR [facility] Left: Chest [facility] *DO NOT USE* 07/25/2012 21-4053-24 / / [id number] Sut Steel 6 M654g - [id number] Implanted:Qty : 1 on 11/01/2010 at OR [facility] N/A: Chest DO NOT USE M654G / / Sut Steel 6 M654g - [id number] Implanted:Qty : 1 on 11/01/2010 at OR [facility] N/A: Chest DO NOT USE M654G / / Valve Tarsha Aortic [id number] - [id number] Implanted:Qty : 1 on 11/01/2010 at OR [facility] N/A: Heart [email or web address] DANIEL 05/20/2012 2800TFX-25 / / [id number] Mesh Soft [id number] - [id number] Implanted:Qty : 1 on 10/10/2019 by Gigi Hendrickson MD at [place] [facility] [place] N/A: Abdomen CR BARD : DAVOL [id number] 05/21/2024 [id number] / / [id number] Lens 22.5 Sn60wf - [id number] - [id number] Implanted:Qty : 1 on 09/15/2020 by Cece Roland MD at OR [facility] Right: Eye IVA : SURGICAL [id number] 05/13/2025 SN60 WF.225 / [id number] / [id number] Lens 21.5 Sn60wf - [id number] - [id number] Implanted:Qty : 1 on 12/19/2023 by Ramsey Burnett DO at OR [facility] Left: Eye IVA : SURGICAL 12/03/2024 SN60WF.2 15 / [id number] / documented as of this encounter Visit Diagnoses Diagnosis C. difficile diarrhea Intestinal infection due to clostridium difficile Memory changes Memory loss Cognitive changes Other signs and [...] statute hierarchy) Jovita Yamile Adult Child Health Registered Pharmacist resentative (appointed verbally by patient or by statute hierarchy) Care Teams Facility Maintenance Helper Relationship Specialty Start Date End Date Gregory Rausch MD [address] [address] PCP - General Family Medicine 02/12/20 documented as of this encounter
--- OUTSIDE RECORDS SUMMARY | 2024-06-05 14:41 | External Medical Summary ---
Author Name Unknown Address Unknown Organization K01:[facility] [place] [address] [place] [address] Laboratory Report Ordering Provider Test Date Status SOSA CEJA 05/01/2024 11:08:26 Final Observation Date Value Abnormality Reference (Units ) Status Folic Acid 05/01/2024 11:08:26 >20.0 >4.5 (ng/ mL) Final Performing Location LABORATORY [facility] - [address] [place] [address]
--- OUTSIDE RECORDS SUMMARY | 2024-06-05 14:41 | External Medical Summary ---
Author Name Unknown Address Unknown Organization K01:[facility] [place] [address] [place] [address] Laboratory Report Ordering Provider Test Date Status SOSA CEJA 05/01/2024 11:08:26 Final Deficient: <20 ng/mL
Ins ufficient: 20-29 ng/mL
Recommended/Optimum:30-50 ng/mL

Vitamin D intoxication is rare. If suspicious of Vitamin D toxicity, evaluation of serum Calcium and PTH is recommended. Observation Date Value Abnormality Reference (Units ) Status 25-OH Vitamin D total 05/01/2024 11:08:26 33 >19 (ng/mL) Final Performing Location LABORATORY [facility] - [address] [place] [address]
--- OUTSIDE RECORDS SUMMARY | 2024-06-05 14:41 | External Medical Summary | Summary of Care ---
Author Name Unknown Organization [facility] Address [address] [place] [address] Phone [phone] Care Team Providers Care Public Accountant Name Role Phone Deon Rausch MD Primary Care Provider [phone] Encounter Details Date Type Department Care Team (Late st Contact Info) Description 04/18/2024 Refill Family Practice [facility] [address] [facility] [address] Deon Rausch MD [address] [facility] [place] [address] Acute intractable tension-type headache Allergies Active Allergy Reactions Criticality Noted Date Comments Adhesive Tape 07/02/2017 Can tolerate band-aids Glycerin Other (Please comment) 03/12/2008 Topical agents with glycein-burning & itching Lactose 12/09/2014 Dairy - gas Lisinopril Cough 01/21/2010 Monosodium Glutamate Edema Other 03/12/2008 Hands and feet Penicillins Rash 11/14/2007 documented as of this encounter (statuses as of 04/18/2024) Medications Medication Sig Dispensed Refills Start Date [...] type 2, not at goal ([facility]) 3 every 15 minutes until glucose [...] Capsules by mouth in the morning. Active Say2meTouch Verio In Vitro Strip (Glucose Blood) Use [...] pump 1 Kit 5 04/10/2024 Active Nystatin 680224 UNIT/GM External Powder (Nystop)Indications :Candidal intertrigo APPLY TOPICALLY TO AFFECTED AREA 3 TIMES A DAY. 60 g 1 04/14/2024 Active Butalbital-Aspirin- Caffeine 50-325-40 MG Oral Capsule (Fiorinal)Indicatio ns:Acute intractable tension-type headache Take 1 Capsule by mouth every 4 hours as needed for Headache. 30 Capsule 04/18/2024 Active Butalbital-Aspirin- Caffeine 50-325-40 MG Oral Capsule (Fiorinal)Indicatio ns:Acute intractable tension-type headache Take 1 Capsule by mouth every 4 hours as needed for Headache for up to 5 days. 30 Capsule 04/01/2024 04/18/20 24 Discontinu ed(Refill) documented as of this encounter (statuses as of 04/18/2024) Active Problems Problem Noted Date Diagnosed Date [...] eye 09/28/2020 Coronary artery disease invo [place]ving [place] coronary artery of [place] heart without angina pectoris 12/16/2019 Last Assessment [...] as of this encounter (statuses as of 04/18/2024) Resolved Problems Problem Noted Date Diagnosed Date [...] 12/21/2016 Diabetes mellitus 01/05/2014 12/21/2016 LEYVA RESEARCH OTHER*[id number] 01/05/2014 12/21/2016 Axillary pain 11/03/2013 12/21/2016 Obesity, [...] 12/21/2016 FOLLOWING SURGERY, UNSPECIFI ED ([facility] BSO 08/25/2011) 08/26/2011 12/21/2016 ADVANCE DIRECTIVE INFORMATION 04/17/2011 12/21/2016 Overview: Yes, Patient instructed to provide copy of advance directive for provider to review and to be scanned into Electronic Medical Record ADVANCE DIRECTIVE INFORMATION 03/01/2011 12/21/2016 Overview: Yes, Patient instructed to provide copy of advance directive for provider to review and to be scanned into Electronic Medical Record [place] V710 Clinical Trial*[id number] 12/22/2010 04/14/2011 S/P aortic valve replacement 12/01/2010 08/26/2011 S/P AORTIC VALVE REPLACEMENT - #25 pericardial Mc valve 11/01/2010 06/28/2018 Overview: Aortic valve replacement with #25 pericardial Mc valve, model 2800TFX, serial number [id number] (Dr. Walker) [facility] V710 Clinical Trial*[id number] 10/18/2010 11/21/2010 Type 2 diabetes mellitus wit [...] as of this encounter (statuses as of 04/18/2024) Immunizations Name Administration Dates Next Due COVID-19 mRNA, LNP-s, No Pre serve, 2-Dose Series (Moderna) 10/25/2021,02/16/2021,01/18/2021 HEP A - Hepatitis A (Adult > 18 yrs) 06/07/2018, 12/05/2017 Hepatitis B, 20+ yrs 06/07/2018,01/08/20 18,12/05/2017,06/15,10/27/2013,09/12/2013 Pneumococcal Conjugate Vacci ne, 20-valent ([id number]) 06/22/2023 Pneumococcal Polysaccharide PPV23 (Pneumovax) 01/02/2008 Seasonal [...] Telephone Encounter - Deon Rausch MD - 04/18/2024 11:34 AM EDTSigned Prescriptions: Disp Refills Bqcltrovex-Ehqalhe-Ljqezgmq 50-325-40 MG O*30 Cap*0 Sig: Take 1 Capsule by mouth every 4 hours as needed for Headache.Authorizing Provider: DEON RAUSCH----- * Telephone Encounter - Shayna Bullard LPN - 04/18/2024 11:14 AM EDT HH Concerns Kathya DUMONT, Calling from: [facility] Report/Concerns of: headaches and refill Symptoms: see narrative Vitals: T 97.8 P 91 RR 18 BP 140/68 SP O2 96% RA Weight 151lbs Blood sugar 287 Narrative: pt was prescribed Fiorinal for headache. She has finished all the tabs and now getting headaches again. Kathya if pt can have another RX? Order pending. Currently headache is dull 2/10 as the day goes on headache worsens to 8/10. Since being out of Fiorinal she has been taking tylenol but doesn't get any relief. Call back the patient with any advice or orders * Telephone Encounter - Ilan Sanz OSA - 04/18/2024 11:09 AM EDT Reason for patient's call: florianyl medication causing headaches Caller was transferred to [place] at the nurse line. documented in this encounter Plan of Treatment Upcoming Encounters Date Type Department Care Team (Late st Contact Info) Description 05/01/2024 9:30 AM EDT Home Visit [facility] [address] [place] [address] Angelica Navas, Community Health Lead Systems Architect [address] [place] [address] 05/08/2024 4:00 PM EDT [facility] Visit [facility] [address] [facility] [place] [address] Jaycee Sorto, RN [address] [facility] [place] [address] 05/09/2024 9:00 AM EDT Imaging Radiology [facility] 132 [facility] [place] [address] 06/03/2024 10:00 AM EDT Office Visit Gastroenterology, [facility] [address] [facility] [place] [address] Arina Knapp PA-C [facility] [place] [address] 07/17/2024 9:30 AM EDT Office Visit Cardiology, [facility] [address] [facility] [place] [address] Roberto Carlos Muniz, [address] [facility] [place] [address] 08/12/2024 9:20 AM EST Office Visit Family Practice [facility] [address] [facility] [place] [address] Deon Rausch MD [address] [place] [address] 10/30/2024 9:00 AM EST Office Visit Neurology [facility] [address] [place] [address] Sandy Juárez PA-C [address] [place] [address] 11/03/2024 11:00 AM EST Office Visit Sleep Disorders Ctr [facility] [place] [address] [place] [id number] Christina Birch DO [address] [place] [address] 11/27/2024 9:40 AM EST Office Visit Nephrology, [facility] [address] [place] [address] Fidelina Baumann MD [address] [place] [address] Scheduled Procedures Name Priority Associated Diagnoses Date/Ti [...] Additional history exists CKD PHOS USE SMARTSET 51761 06/18/202405/26, 06/16/2023, 06/15/2023, Additional history exists GFR 07/09/2024 01/08/2024, 09/25, 08/02/2023, Additional history exists HbA1c 08/01/2024 01/30/2024, 08/25, 07/31/2023, Additional history exists Diabetic Eye Exam 09/13/2024 09/13/2023, , 09/13/2023, Additional history exists B-12 09/18/2024 09/18/2023, 08/24, 2020, Additional history exists Albumin/Creatinine Ratio 01/07/2025 024, 03/09/2023, 12/22/2022, Additional history exists CKD HGB USE SMARTSET 98627 01/07/202501/07, 01/08/2024, 10/15/2023, Additional history exists TSH [...] encounter Medical Devices Implanted Type Area Teacher Device Identifier Shelf Expiration Date Model / Serial / Lot Cath Roselia Single Lumen - [id number] Implanted:Qty : 1 on 03/12/2008 at OR [facility] Left: Chest [employer] *DO NOT USE* 07/25/2012 21-4053-24 / / [id number] Sut Steel 6 M654g - [id number] Implanted:Qty : 1 on 11/01/2010 at OR [facility] N/A: Chest DO NOT USE M654G / / Sut Steel 6 M654g - [id number] Implanted:Qty : 1 on 11/01/2010 at OR [facility] N/A: Chest DO NOT USE M654G / / Valve Tarsha Aortic [id number] - [id number] Implanted:Qty : 1 on 11/01/2010 at OR [facility] N/A: Heart [employer] DANIEL 05/20/2012 2800TFX-25 / / [id number] Mesh Soft [id number] - [id number] Implanted:Qty : 1 on 10/10/2019 by Gigi Hendrickson MD at OR [facility] N/A: Abdomen CR BARD : DAVOL [id number] 05/21/2024 [id number] / / [id number] Lens 22.5 Sn60wf - [id number] - [id number] Implanted:Qty : 1 on 09/15/2020 by Renaldo Cook, Cece Acosta MD at OR [facility] Right: Eye IVA : SURGICAL [id number] 05/13/2025 SN60 WF.225 / [id number] / [id number] Lens 21.5 Sn60wf - [id number] - [id number] Implanted:Qty : 1 on 12/19/2023 by Ramsey Burnett DO at OR [facility] Left: Eye IVA : SURGICAL 12/03/2024 SN60WF.2 15 / [id number] / documented as of this encounter Visit Diagnoses Diagnosis Acute intractable tension-type headache documented in this encounter Advance Directives * Full Code [...] statute hierarchy) Jovita Ovalle Adult Child Health Nuclear Powerplant Mechanic resentative (appointed verbally by patient or by statute hierarchy) [email or web address] Care Teams Public Accountant Relationship Specialty Start Date End Date Deon Rausch MD [address] [place] [address] PCP - General Family Medicine 02/12/20 documented as of this encounter
--- OUTSIDE RECORDS SUMMARY | 2024-06-05 14:41 | External Medical Summary | Summary of Care ---
Author Name Unknown Organization [facility] Address [address] [place] [address] Phone [phone] Care Team Providers Care Rail Manager Name Role Phone Gregory Rausch MD Primary Care Provider [phone] Reason for Visit * Reason Comments Outpatient Testing Encounter Details Date Type Department Care Team (Late st Contact Info) Description 05/01/2024 11:00 AM EDT Laboratory Laboratory [facility] [address] [place] [address] [place] [facility] [address] [place] [address] Diarrhea, unspecified type Allergies Active Allergy Reactions Criticality Noted Date [...] (Glucose)Indications :DM type 2, not at goal ([facility]) 3 every 15 minutes until glucose is [...] preserved ejection fraction (HFpEF) ([facility]) Take 1 Tablet by mouth in the morning and 1 Tablet before bedtime. 180 Tablet 3 01/22/2024 Active BD Pen Needle Short U/F 31G X 8 MMIndications:Type 2 diabetes mellitus with hemoglobin A1c goal of less than 7.0% ([facility]),Type 2 diabetes mellitus with stage 3a chronic kidney disease, with long-term current use of insulin ([facility]) Use with insulin 4 times daily 400 [...] of less than 7.0% ([facility]) Use up to 50 units per day in Omnipod. 03/31/2024 Active Omnipod 5 G6 Intro (Gen 5) Kit Use as directed. Use to delivery insulin via insulin pump 1 Kit 5 04/10/2024 Active Nystatin 269589 UNIT/GM External Powder (Nystop)Indications: Candidal intertrigo APPLY TOPICALLY TO AFFECTED AREA 3 TIMES A DAY. 60 g 1 04/14/2024 Active Ogpgwwvbcu-Qilqizp-Z affeine 50-325-40 MG Oral Capsule (Fiorinal)Indication s:Acute [...] 12/21/2016 Diabetes mellitus 01/05/2014 12/21/2016 LEYVA RESEARCH OTHER*[id number] 01/05/2014 12/21/2016 Axillary pain 11/03/2013 12/21/2016 Obesity, [...] 09/201008/26/2011 12/21/2016 FOLLOWING SURGERY, UNSPECIFI ED ([facility] BSO 08/25/2011) 08/26/2011 12/21/2016 ADVANCE DIRECTIVE INFORMATION 04/17/2011 12/21/2016 Overview: Yes, Patient instructed to provide copy of advance directive for provider to review and to be scanned into Electronic Medical Record ADVANCE DIRECTIVE INFORMATION 03/01/2011 12/21/2016 Overview: Yes, Patient instructed to provide copy of advance directive for provider to review and to be scanned into Electronic Medical Record [place] V710 Clinical Trial*[id number] 12/22/2010 04/14/2011 S/P aortic valve replacement 12/01/2010 08/26/2011 S/P AORTIC VALVE REPLACEMENT - #25 pericardial Mc valve 11/01/2010 06/28/2018 Overview: Aortic valve replacement with #25 pericardial Mc valve, model 2800TFX, serial number [id number] (Dr. Walker) [facility] GeoPoll10 Clinical Trial*[id number] 10/18/2010 11/21/2010 Type 2 diabetes mellitus wit [...] 06/07/2018,01/08/20 18,12/05/2017,06/15,10/27/2013,09/12/2013 Pneumococcal Conjugate Vacci ne, 20-valent (Cpbssdv93) 06/22/2023 Pneumococcal Polysaccharide PPV23 (Pneumovax) 01/02/2008 Seasonal [...] Description 05/01/2024 11:20 AM EDT Laboratory Laboratory, [facility] [address] [facility] [place] [address] [facility] [address] [facility] [place] [address] C. difficile diarrhea; Memory changes; Cognitive changes 05/01/2024 12:00 PM EDT Office Visit Gastroenterology, [facility] [address] [facility] [place] [address] Tia Taylor CRNP [address] [facility] [place] [address] Arrived 05/14/2024 9:00 AM EDT Imaging Radiology [facility] 1st [facility] [address] [facility] [place] [address] 08/12/2024 9:20 AM EST Office Visit Family Practice [facility] [address] [facility] [place] [address] Gregory Rausch MD 132 [facility] [place] [address] 10/30/2024 9:00 AM EST Office Visit Neurology [facility] [address] [place] [address] Sandy Juárez PA-C [facility] [place] [address] 11/03/2024 11:00 AM EST Office Visit Sleep Disorders Ctr [facility] [address] [facility] [place] [phone] Christina Birch DO [address] [facility] [place] [address] 11/27/2024 9:40 AM EST Office Visit Nephrology, [facility] [address] [place] [address] Fidelina Baumann MD [address] [place] [address] [place] [address] Pending Results Name Type Priority Associated Diagnoses Date /Time CLOSTRIDIUM DIFFICILE, PCR Lab Routine Diarrhea, unspecified type 05/01/2024 10:53 AM EDT Scheduled Procedures Name Priority Associated [...] Additional history exists CKD PHOS USE SMARTSET 37238 06/18/202405/26, 06/16/2023, 06/15/2023, Additional history exists GFR 07/09/2024 01/08/2024, 09/25, 08/02/2023, Additional history exists HbA1c 08/01/2024 01/30/2024, 08/25, 07/31/2023, Additional history exists Diabetic Eye Exam 09/13/2024 09/13/2023, , 09/13/2023, Additional history exists B-12 09/18/2024 09/18/2023, 08/24, 2020, Additional history exists Albumin/Creatinine Ratio 01/07/2025 024, 03/09/2023, 12/22/2022, Additional history exists CKD HGB USE SMARTSET 51922 01/07/202501/07, 01/08/2024, 10/15/2023, Additional history exists TSH [...] this encounter Medical Devices Implanted Type Area Field Map Technician Device Identifier Shelf Expiration Date Model / Serial / Lot Cath Roselia Single Lumen - [id number] Implanted:Qty : 1 on 03/12/2008 at OR [facility] Left: Chest [facility] *DO NOT USE* 07/25/2012 21-4053-24 / / [id number] Sut Steel 6 M654g - [id number] Implanted:Qty : 1 on 11/01/2010 at OR [facility] N/A: Chest DO NOT USE M654G / / Sut Steel 6 M654g - [id number] Implanted:Qty : 1 on 11/01/2010 at OR [facility] N/A: Chest DO NOT USE M654G / / Valve Tarsha Aortic [id number] - [id number] Implanted:Qty : 1 on 11/01/2010 at OR [facility] N/A: Heart [employer] DANIEL 05/20/2012 2800TFX-25 / / [id number] Mesh Soft [id number] - [id number] Implanted:Qty : 1 on 10/10/2019 by Gigi Hendrickson MD at OR [facility] N/A: Abdomen CR BARD : DAVOL [id number] 05/21/2024 [id number] / / [id number] Lens 22.5 Sn60wf - [id number] - [id number] Implanted:Qty : 1 on 09/15/2020 by Renaldo Cook, Cece Acosta MD at [facility] Right: Eye IVA : SURGICAL [id number] 05/13/2025 SN60 WF.225 / [id number] / [id number] Lens 21.5 Sn60wf - [id number] - [id number] Implanted:Qty : 1 on 12/19/2023 by Ramsey Burnett DO at OR [facility] Left: Eye IVA : SURGICAL 12/03/2024 SN60WF.2 15 / [id number] / documented as of this encounter Visit Diagnoses Diagnosis C. difficile diarrhea Intestinal infection due to clostridium difficile Memory changes Memory loss Cognitive changes Other signs and symptoms involving cognition Diarrhea, unspecified type documented in this encounter Additional Health Concerns [...] Name Relationship Healthcare Agent Relationship Communication Gigi Harrisonjennifer Adult Child Health Care Repr esentative (appointed verbally by patient or by statute hierarchy) Jovita Ovalle Adult Child Health Lacquer Polisher resentative (appointed verbally by patient or by statute hierarchy) Care Teams Rail Manager Relationship Specialty Start Date End Date Gregory Rausch MD [address] [place] [address] PCP - General Family Medicine 02/12/20 documented as of this encounter
--- OUTSIDE RECORDS SUMMARY | 2024-06-05 14:41 | External Medical Summary ---
Author Name Unknown Address Unknown Organization K01:[facility]ATORY [facility] - [facility] [address] [facility] [address] Laboratory Report Ordering Provider Test Date Status IVIS CHAVARRIA 05/01/2024 10:53:02 Final Observation Date Value Abnormality Reference (Units) Status Source 05/01/2024 10:53:02 Liquid Final Clostridioides difficile toxin and BI-NAP1-027 strain DNA panel - Stool by RADHA with probe detection 05/01/2024 10:53:02 Positive for C. difficile toxin B gene DNA by PCR (Amplified Probe). Presumptive positive for C. difficile 027-NAP1-B1 strain by PCR (Amplified Probe). Abnormal Negative Final Performing Location LABORATORY [facility] - [address] [facility] [facility] [address] [facility] [address]
--- OUTSIDE RECORDS SUMMARY | 2024-06-05 14:41 | External Medical Summary ---
Author Name Unknown Address Unknown Organization K0G:LABORATORY [place] [address] [place] [address] Laboratory Report Ordering Provider Test Date Status LUDY CARVER 05/01/2024 11:08:26 Final Observation Date Value Abnormality Reference (Units ) Status BUN 05/01/2024 11:08:26 16 6-20 (mg/dL) Final Creatinine 05/01/2024 11:08:26 1.0 0.5-1.0 (mg/dL) Final Glomerular filtration rate/1.73 sq M.predicted [Volume Rate/Area] in Serum, Plasma or Blood by Creatinine-based formula (CKD-EPI) 05/01/2024 11:08:26 63 >=60 (mL/min) Final eGFR is calculated based on the CKD-EPI 2020 equation. Sodium 05/01/2024 11:08:26 133 Below low normal 135 -146 (mmol/L) Final Potassium 05/01/2024 11:08:26 4.5 3.5-5.1 (m mol/L) Final Cl 05/01/2024 11:08:26 97 Below low normal 98- 107 (mmol/L) Final CO2 05/01/2024 11:08:26 25 22-32 (mmo l/L) Final Anion gap 05/01/2024 11:08:26 11 7-15 (mmol /L) Final Glucose 05/01/2024 11:08:26 289 Above high normal 70 -120 (mg/dL) Final Calcium 05/01/2024 11:08:26 9.5 8.4-10.2 ( mg/dL) Final Performing Location LAB[facility]ATORY [facility] [place] [address] - [address] [place] [address]
--- OUTSIDE RECORDS SUMMARY | 2024-06-05 14:42 | External Medical Summary | Summary of Care ---
Author Name Unknown Organization [facility] Address [address] [place] [address] Phone [phone] Care Team Providers Care Marine Pilot Name Role Phone Gregory Rausch MD Primary Care Provider [phone] Reason for Visit * Reason Onset Date Comments [facility]: Maintenance 04/14/2024 Encounter Details Date Type Department Care Team (Late st Contact Info) Description 04/14/2024 Telephone [facility], [facility] [address] [place] [address] [facility], Nurse [facility] [address] [place] [address] [facility]: Maintenance Allergies Active Allergy Reactions Criticality Noted Date Comments Adhesive Tape 07/02/2017 Can tolerate band-aids Glycerin Other (Please comment) 03/12/2008 Topical agents with glycein-burning & itching Lactose 12/09/2014 Dairy - gas Lisinopril Cough 01/21/2010 Monosodium Glutamate Edema Other 03/12/2008 Hands and feet Penicillins Rash 11/14/2007 documented as of this encounter (statuses as of 04/14/2024) Medications Medication Sig Dispensed Refills Start Date [...] (Glucose)Indications :DM type 2, not at goal ([facility]) 3 every 15 minutes until glucose [...] heart failure with preserved ejection fraction (HFpEF) ([facility]) Take 1 Tablet by mouth in the morning and 1 Tablet before bedtime. 180 Tablet 3 01/22/2024 Active BD Pen Needle Short U/F 31G X 8 MMIndications:Type 2 diabetes mellitus with hemoglobin A1c goal of less than 7.0% ([facility]),Type 2 diabetes mellitus with stage 3a chronic kidney disease, with long-term current use of insulin ([facility]) Use with insulin 4 times daily [...] disease, with long-term current use of insulin ([facility]) Inject 36 Units under the skin in the morning. 6 mL 2 03/14/2024 Active Insulin Aspart 100 UNIT/ML Injection Solution (NovoLOG)Indications :Type 2 diabetes mellitus with hemoglobin A1c goal of less than 7.0% ([facility]) Use up to 50 units per day in Omnipod. 03/31/2024 Active Omnipod 5 G6 Intro (Gen 5) Kit Use as directed. Use to delivery insulin via insulin pump 1 Kit 5 04/10/2024 Active Nystatin 305513 UNIT/GM External Powder (Nystop)Indications: Candidal intertrigo APPLY TOPICALLY TO AFFECTED AREA 3 TIMES A DAY. 60 g 1 04/14/2024 Active documented as of this encounter (statuses as of 04/14/2024) Active Problems Problem Noted Date Diagnosed Date [...] as of this encounter (statuses as of 04/14/2024) Resolved Problems Problem Noted Date Diagnosed Date [...] 12/21/2016 Diabetes mellitus 01/05/2014 12/21/2016 LEYVA RESEARCH OTHER*[id number] 01/05/2014 12/21/2016 Axillary pain 11/03/2013 12/21/2016 Obesity, [...] 12/21/2016 FOLLOWING SURGERY, UNSPECIFI ED ([facility] BSO 08/25/2011) 08/26/2011 12/21/2016 ADVANCE DIRECTIVE INFORMATION 04/17/2011 12/21/2016 Overview: Yes, Patient instructed to provide copy of advance directive for provider to review and to be scanned into Electronic Medical Record ADVANCE DIRECTIVE INFORMATION 03/01/2011 12/21/2016 Overview: Yes, Patient instructed to provide copy of advance directive for provider to review and to be scanned into Electronic Medical Record [facility] V710 Clinical Trial*[id number] 12/22/2010 04/14/2011 S/P aortic valve replacement 12/01/2010 08/26/2011 S/P AORTIC VALVE REPLACEMENT - #25 pericardial Hernandez valve 11/01/2010 06/28/2018 Overview: Aortic valve replacement with #25 pericardial Hernandez valve, model 2800TFX, serial number [id number] (Dr. Walker) [facility] V710 Clinical Trial*[id number] 10/18/2010 11/21/2010 Type 2 diabetes mellitus wit [...] as of this encounter (statuses as of 04/14/2024) Immunizations Name Administration Dates Next Due COVID-19 mRNA, LNP-s, No Pre serve, 2-Dose Series (Moderna) 10/25/2021,02/16/2021,01/18/2021 HEP A - Hepatitis A (Adult > 18 yrs) 06/07/2018, 12/05/2017 Hepatitis B, 20+ yrs 06/07/2018,01/08/20 18,12/05/2017,06/15,10/27/2013,09/12/2013 Pneumococcal Conjugate Vacci ne, 20-valent ([id number]) 06/22/2023 Pneumococcal Polysaccharide PPV23 (Pneumovax) 01/02/2008 Seasonal [...] 9:43 AM EDT Sexual Orientation Straight 12/27/2018 9 :43 AM EDT Job Start Date Occupation Industry [...] Telephone Encounter - Gisela Cartwright LPN - 04/14/2024 11:02 AM EDT Images from the original note were not included. [facility] Remote Patient Monitoring Unable to contact patient: Trigger type: Abnormal reading(s): Device(s) Triggered: AMC (Advanced Monitored Caregiving): Scale: Trigger weight: 157.8 lbs; weight increased 6 lbs in 6 day(s) Plan: Call to pt at [phone] no answer left VM requesting a return call to [facility] at [phone] opt#3 Call to [phone] reached pt's daughter. Requested if she should see or talk to her mother todayto ask her to call [facility] at number above documented in this encounter Plan of Treatment Upcoming Encounters Date Type Department Care Team (Late st Contact Info) Description 04/25/2024 10:00 AM EDT Home Visit [facility] [place], [facility] [address] [address] Jaycee Sorto RN [address] [place] [address] 05/01/2024 9:30 AM EDT Home Visit Care Coordination and Integration [address] [place] [address] Angelica Navas, Community Health Rewind Operator [address] [place] [address] 05/09/2024 9:00 AM EDT Imaging [facility] [address] [place] [address] 06/03/2024 10:00 AM EDT Office Visit Gastroenterology, [facility] [address] [place] [address] Arina Knapp PA-C [address] [place], [place] [address] [address] 07/17/2024 9:30 AM EDT Office Visit Cardiology, [facility] [address] [place] [address] Roberto Carlos Muniz, [address] [address] 08/12/2024 9:20 AM EST Office Visit Family Practice [facility] [address] [facility] [place] [address] Gregory Rausch MD [address] [place] [address] 10/30/2024 9:00 AM EST Office Visit Neurology [facility] [address] [place] [address] Sandy Juárez PA-C [address] [place] [address] 11/03/2024 11:00 AM EST Office Visit Sleep Disorders Ctr [facility] [address] [facility] [place] [phone] Christina Birch DO [address] [facility] [place] [address] 11/27/2024 9:40 AM EST Office Visit Nephrology, [facility] [address] [facility] [place] [address] Fidelina Baumann MD [address] [facility] [address] [place] [address] Scheduled Procedures Name Priority Associated Diagnoses Date/Ti [...] Additional history exists CKD PHOS USE SMARTSET 67908 06/18/202405/26, 06/16/2023, 06/15/2023, Additional history exists GFR 07/09/2024 01/08/2024, 09/25, 08/02/2023, Additional history exists HbA1c 08/01/2024 01/30/2024, 08/25, 07/31/2023, Additional history exists Diabetic Eye Exam 09/13/2024 09/13/2023, , 09/13/2023, Additional history exists B-12 09/18/2024 09/18/2023, 08/24, 2020, Additional history exists Albumin/Creatinine Ratio 01/07/2025 024, 03/09/2023, 12/22/2022, Additional history exists CKD HGB USE SMARTSET 92389 01/07/202501/07, 01/08/2024, 10/15/2023, Additional history exists TSH [...] this encounter Medical Devices Implanted Type Area Applications Scientist Device Identifier Shelf Expiration Date Model / Serial / Lot Cath Roselia Single Lumen - [id number] Implanted:Qty : 1 on 03/12/2008 at OR [facility] Left: Chest [facility] *DO NOT USE* 07/25/2012 21-4053-24 / / [id number] Sut Steel 6 M654g - [id number] Implanted:Qty : 1 on 11/01/2010 at OR [facility] N/A: Chest DO NOT USE M654G / / Sut Steel 6 M654g - [id number] Implanted:Qty : 1 on 11/01/2010 at OR [facility] N/A: Chest DO NOT USE M654G / / Valve Tarsha Aortic [id number] - [id number] Implanted:Qty : 1 on 11/01/2010 at OR [facility] N/A: Heart [employer] RTD DANIEL 05/20/2012 2800TFX-25 / / [id number] Mesh Soft [id number] - [id number] Implanted:Qty : 1 on 10/10/2019 by Gigi Hendrickson MD [place] [facility] N/A: Abdomen CR BARD : DAVOL [id number] 05/21/2024 [id number] / / [id number] Lens 22.5 Sn60wf - [id number] - [id number] Implanted:Qty : 1 on 09/15/2020 by Renaldo Cook, Cece Acosta MD at OR [facility] Right: Eye IVA : SURGICAL [id number] 05/13/2025 SN60 WF.225 / [id number] / [id number] Lens 21.5 Sn60wf - [id number] - [id number] Implanted:Qty : 1 on 12/19/2023 by Ramsey Burnett DO at OR [facility] Left: Eye IVA : SURGICAL 12/03/2024 SN60WF.2 15 / [id number] / documented as of this encounter [...] statute hierarchy) Jovita Ovalle Adult Child Health Lead Caregiver resentative (appointed verbally by patient or by statute hierarchy) [email or web address] Care Teams Marine Pilot Relationship Specialty Start Date End Date Gregory Rausch MD [address] [place] [address] PCP - General Family Medicine 02/12/20 documented as of this encounter
--- OUTSIDE RECORDS SUMMARY | 2024-06-05 14:42 | External Medical Summary | Summary of Care ---
Author Name Unknown Organization [facility] Address [address] [place] [address] Phone [phone] Care Team Providers Care Full Stack Engineer Name Role Phone Gregory Rausch MD Primary Care Provider [phone] Reason for Visit * Reason Onset Date Comments Appointment 04/17/2024 Encounter Details Date Type Department Care Team (Late st Contact Info) Description 04/17/2024 Telephone [facility], [place] [address] [place] [address] Services, Scheduling [address] [place] [address] Appointment (//) Allergies Active Allergy Reactions Criticality Noted Date Comments Adhesive Tape 07/02/2017 Can tolerate band-aids Glycerin Other (Please comment) 03/12/2008 Topical agents with glycein-burning & itching Lactose 12/09/2014 Dairy - gas Lisinopril Cough 01/21/2010 Monosodium Glutamate Edema Other 03/12/2008 Hands and feet Penicillins Rash 11/14/2007 documented as of this encounter (statuses as of 04/17/2024) Medications Medication Sig Dispensed Refills Start Date [...] (Glucose)Indications :DM type 2, not at goal ([facility]) 3 every 15 minutes until glucose is [...] ([facility]) Inject 36 Units under the skin in [...] pump 1 Kit 5 04/10/2024 Active Nystatin 420855 UNIT/GM External Powder (Nystop)Indications: Candidal intertrigo APPLY TOPICALLY TO AFFECTED AREA 3 TIMES A DAY. 60 g 1 04/14/2024 Active documented as of this encounter (statuses as of 04/17/2024) Active Problems Problem Noted Date Diagnosed Date [...] eye 09/28/2020 Coronary artery disease invo lving [place] coronary artery of [place] heart without angina pectoris 12/16/2019 Last Assessment [...] as of this encounter (statuses as of 04/17/2024) Resolved Problems Problem Noted Date Diagnosed Date [...] 12/21/2016 Diabetes mellitus 01/05/2014 12/21/2016 LEYVA RESEARCH OTHER*[id number] 01/05/2014 12/21/2016 Axillary pain 11/03/2013 12/21/2016 Obesity, [...] cath 09/201008/26/2011 12/21/2016 FOLLOWING SURGERY, UNSPECIFI ED ([facility] BSO 08/25/2011) 08/26/2011 12/21/2016 ADVANCE [...] Record [facility] V710 Clinical Trial*[id number] 12/22/2010 04/14/2011 S/P aortic valve replacement 12/01/2010 08/26/2011 S/P AORTIC VALVE REPLACEMENT - #25 pericardial Mc valve 11/01/2010 06/28/2018 Overview: Aortic valve replacement with #25 pericardial Mc valve, model 2800TFX, serial number [id number] (Dr. Walker) [facility] V710 Clinical Trial*[id number] 10/18/2010 11/21/2010 Type 2 diabetes mellitus wit [...] as of this encounter (statuses as of 04/17/2024) Immunizations Name Administration Dates Next Due COVID-19 mRNA, LNP-s, No Pre serve, 2-Dose Series (Moderna) 10/25/2021,02/16/2021,01/18/2021 HEP A - Hepatitis A (Adult > 18 yrs) 06/07/2018, 12/05/2017 Hepatitis B, 20+ yrs 06/07/2018,01/08/20 18,12/05/2017,06/15,10/27/2013,09/12/2013 Pneumococcal Conjugate Vacci ne, 20-valent (Dthsoap26) 06/22/2023 Pneumococcal Polysaccharide PPV23 (Pneumovax) 01/02/2008 Seasonal [...] and I found next available to be 05/08@4 and called but had to lmom of change documented in this encounter Plan of Treatment Upcoming Encounters Date Type Department Care Team (Late st Contact Info) Description 05/01/2024 9:30 AM EDT Home Visit Care Coordination and Integration [address] [place] [address] Angelica Navas, Community Health Patternator [address] [place] [address] 05/08/2024 4:00 PM EDT [facility] Visit [facility], [facility] [address] [facility] [place] [address] Jaycee Sorto, RN [address] [facility] [place] [address] 05/09/2024 9:00 AM EDT Imaging Radiology [facility] 1st [facility] [address] [facility] [place] [address] 06/03/2024 10:00 AM EDT Office Visit Gastroenterology, [facility] [address] [facility] [place] [address] Arina Knapp PA-C [address] [place] [address] 07/17/2024 9:30 AM EDT Office Visit Cardiology, [facility] [address] [facility] [place] [address] Roberto Carlos Muniz, [address] [facility] [place] [address] 08/12/2024 9:20 AM EST Office Visit Family Practice [facility] [address] [facility] [place] [address] Gregory Rausch MD [address] [place] [address] 10/30/2024 9:00 AM EST Office Visit Neurology [facility] [address] [place] [address] Sandy Juárez PA-C [address] [place] [address] 11/03/2024 11:00 AM EST Office Visit Sleep Disorders Ctr [facility] [place] [address] [place] [phone] Christina Birch DO [address] [facility] [place] [address] 11/27/2024 9:40 AM EST Office Visit Nephrology, [facility] [address] [place] [address] Fidelina Baumann MD [address] [place] [address] Scheduled Procedures Name Priority Associated Diagnoses Date/Ti [...] Additional history exists CKD PHOS USE SMARTSET 94171 06/18/202405/26, 06/16/2023, 06/15/2023, Additional history exists GFR 07/09/2024 01/08/2024, 09/25, 08/02/2023, Additional history exists HbA1c 08/01/2024 01/30/2024, 08/25, 07/31/2023, Additional history exists Diabetic Eye Exam 09/13/2024 09/13/2023, , 09/13/2023, Additional history exists B-12 09/18/2024 09/18/2023, 08/24, 2020, Additional history exists Albumin/Creatinine Ratio 01/07/2025 024, 03/09/2023, 12/22/2022, Additional history exists CKD HGB USE SMARTSET 03096 01/07/202501/07, 01/08/2024, 10/15/2023, Additional history exists TSH [...] this encounter Medical Devices Implanted Type Area Casino Gaming Inspector Device Identifier Shelf Expiration Date Model / Serial / Lot Cath Roselia Single Lumen - [id number] Implanted:Qty : 1 on 03/12/2008 at OR [facility] Left: Chest [facility] *DO NOT USE* 07/25/2012 21-4053-24 / / [id number] Sut Steel 6 M654g - [id number] Implanted:Qty : 1 on 11/01/2010 at OR [facility] N/A: Chest DO NOT USE M654G / / Sut Steel 6 M654g - [id number] Implanted:Qty : 1 on 11/01/2010 at OR [facility] N/A: Chest DO NOT USE M654G / / Valve Tarsha Aortic [id number] - [id number] Implanted:Qty : 1 on 11/01/2010 at OR [facility] N/A: Heart [employer] DANIEL 05/20/2012 2800TFX-25 / / [id number] Mesh Soft [id number] - [id number] Implanted:Qty : 1 on 10/10/2019 by Gigi Hendrickson MD at OR [facility] N/A: Abdomen CR BARD : DAVOL [id number] 05/21/2024 [id number] / / [id number] Lens 22.5 Sn60wf - [id number] - [id number] Implanted:Qty : 1 on 09/15/2020 by Renaldo Cook, Cece Acosta MD at OR [facility] Right: Eye IVA : SURGICAL [id number] 05/13/2025 SN60 WF.225 / [id number] / [id number] Lens 21.5 Sn60wf - [id number] - [id number] Implanted:Qty : 1 on 12/19/2023 by Ramsey Burnett DO at OR [facility] Left: Eye IVA : SURGICAL 12/03/2024 SN60WF.2 15 / [id number] / documented as of this encounter [...] statute hierarchy) Jovita Ovalle Adult Child Health Clinical Sciences Professor resentative (appointed verbally by patient or by statute hierarchy) Care Teams Full Stack Engineer Relationship Specialty Start Date End Date Gregory Rausch MD [address] [place] [address] PCP - General Family Medicine 02/12/20 documented as of this encounter
--- OUTSIDE RECORDS SUMMARY | 2024-06-05 14:42 | External Medical Summary | Summary of Care ---
Author Name Unknown Organization [facility] Address [address] [place] [address] Phone [phone] Care Team Providers Care Engine Service Repairer Name Role Phone Deon Rausch MD Primary Care Provider [phone] Reason for Visit * Reason Comments eRx-Medication Refill Encounter Details Date Type Department Care Team (Late st Contact Info) Description 04/12/2024 Refill Family Practice [facility] [address] [facility] [place] [address] Deon Rausch MD [address] [facility] [place] [address] Candidal intertrigo Allergies Active [...] (Glucose)Indicatio ns:DM type 2, not at goal ([facility]) 3 every 15 minutes until glucose is > 100 mg/dL for hypoglycemia E11.9 100 Tab 3 1 Active OneTouch Verio w/Device Kit Use up to 4 times a day E11.9 1 Kit 2 Active OneTouch Delica Lancets 33G TEST 4 TIMES DAILY DIRECTED, E11.9 400 Each 3 2 Active Melatonin 10 MG Oral CapsuleIndications :sleep [...] a day. 360 Tablet 2 4 Active Metoprolol Tartrate 25 MG Oral Tablet (Lopressor) Take 1 Tablet by mouth in the morning and 1 Tablet before bedtime. 60 Tablet 5 4 Active Gabapentin 300 MG Oral Capsule (Neurontin) Take 1 Capsule by mouth in the morning and 1 Capsule at noon and 1 Capsule before bedtime. 90 Capsule 5 4 Active Fluticasone Propionate 50 MCG/ACT Nasal Suspension (Flonase)Indicatio ns:Dizziness Administer 2 Sprays into each nostril in the morning. 16 g 3 4 Active Saccharomyces boulardii 250 MG Oral Capsule (Florastor) Take 1 Capsule by mouth in the morning and 1 Capsule before bedtime. 60 Capsule 4 Active Magnesium Oxide -Mg Supplement 400 [...] pump 1 Kit 5 4 Active Nystatin 558306 UNIT/GM External Powder (Nystop)Indication s:Candidal intertrigo APPLY TOPICALLY TO AFFECTED AREA 3 TIMES A DAY. 60 g 1 4 Active Nystatin 075170 UNIT/GM External Powder (Nystop)Indication s:Candidal intertrigo Apply topically to affected area 3 times a day. Apply to affected areas 60 g 1 4 04/14/20 24 Discontinued documented as of this encounter (statuses [...] eye 09/28/2020 Coronary artery disease invo lving crow coronary artery of crow heart without angina pectoris 12/16/2019 Last Assessment [...] 12/21/2016 Diabetes mellitus 01/05/2014 12/21/2016 LEYVA RESEARCH OTHER*[id number] 01/05/2014 12/21/2016 Axillary pain 11/03/2013 12/21/2016 Obesity, [...] cath 09/201008/26/2011 12/21/2016 FOLLOWING SURGERY, UNSPECIFI ED ([facility] BSO 08/25/2011) 08/26/2011 12/21/2016 ADVANCE DIRECTIVE INFORMATION 04/17/2011 12/21/2016 Overview: Yes, Patient instructed to provide copy of advance directive for provider to review and to be scanned into Electronic Medical Record ADVANCE DIRECTIVE INFORMATION 03/01/2011 12/21/2016 Overview: Yes, Patient instructed to provide copy of advance directive for provider to review and to be scanned into Electronic Medical Record [facility] V710 Clinical Trial*[id number] 12/22/2010 04/14/2011 S/P aortic valve replacement 12/01/2010 08/26/2011 S/P AORTIC VALVE REPLACEMENT - #25 pericardial Mc valve 11/01/2010 06/28/2018 Overview: Aortic valve replacement with #25 pericardial Mc valve, model 2800TFX, serial number [id number] (Dr. Walker) [facility] V710 Clinical Trial*[id number] 10/18/2010 11/21/2010 Type 2 diabetes mellitus wit [...] 06/07/2018,01/08/20 18,12/05/2017,06/15,10/27/2013,09/12/2013 Pneumococcal Conjugate Vacci ne, 20-valent (Xmocali38) 06/22/2023 Pneumococcal Polysaccharide PPV23 (Pneumovax) 01/02/2008 Seasonal [...] Telephone Encounter - Deon Rausch MD - 04/14/2024 9:39 AM EDTSigned Prescriptions: Disp Refills Nystatin 462369 UNIT/GM External Powder (N*60 g 1 Sig: APPLY TOPICALLY TO AFFECTED AREA 3 TIMES A DAY. Authorizing Provider: DEON RAUSCH * Telephone Encounter - Rufina Sinha LPN - 04/14/2024 9:35 AM EDTPending Prescriptions: Disp Refills Nystatin 393270 UNIT/GM External Powder [P*60 g 1 Sig: APPLY TOPICALLY TO AFFECTED AREA 3 TIMES A DAY. * Telephone Encounter - Rufina Sinha LPN - 04/14/2024 9:34 AM EDT Did you pend patient's preferred pharmacy and medication before forwarding?yes Pharmacy: [id number] Pending Prescriptions: Disp Refills Nystatin 649379 UNIT/GM External Powder (*60 g 1 Sig: APPLY TOPICALLY TO AFFECTED AREA 3 TIMES A DAY. Last Visit: 03/17/2024 (in office), 09/12/2023 (telemedicine) Next Visit: 08/12/2024 If no future appointments scheduled, and last appointment is greater than a year ago, please schedule patient for a follow-up appointment Last date the medication was ordered: 01/10/2024 Is this request for a controlled substance?No Urine Drug Screen:No results found. However, due to the size of the patient record, not all encounters were searched. Please check Results Review for a complete set of results. Patient Phone Numbers Labs: Lab Results Component Value Date/Time CREAT 1.0 01/08/2024 12:22 PM CREAT 0.80 08/02/2023 12:00 AM CREAT 0.88 06/26/2023 05:43 PM CREAT 1.2 (H) 09/07/2020 10:58 AM POTASSIUM 50.2 01/08/2024 12:29 PM POTASSIUM 5.1 01/08/2024 12:22 PM POTASSIUM 3.0 (A) 08/02/2023 12:00 AM POTASSIUM [...] * Telephone Encounter - Caroline Ellis - 04/13/2024 4:09 AM EDTPending Prescriptions: Disp Refills Nystatin 037638 UNIT/GM External Powder [P*60 g 1 Sig: APPLY TOPICALLY TO AFFECTED AREA 3 TIMES A DAY. documented in this encounter Plan of Treatment Upcoming Encounters Date Type Department Care Team (Late st Contact Info) Description 04/25/2024 10:00 AM EDT [facility] [address] [place] [address] Jaycee Sorto, RN [address] [place] [address] 05/01/2024 9:30 AM EDT Home Visit Care Coordination and Integration [address] [place] [address] Angelica Navas, Community Health Back Office Medical Assistant [address] [place] [address] 05/09/2024 9:00 AM EDT Imaging Radiology [facility] 1st [facility] 132 [facility] [place] [address] 06/03/2024 10:00 AM EDT Office Visit Gastroenterology, [facility] 132 [facility] [place] [address] Arina Knapp PA-C [facility] [place] [address] 07/17/2024 9:30 AM EDT Office Visit Cardiology, [facility] 132 [facility] [place] [address] Roberto Carlos Muniz, 132 [facility] [place] [address] 08/12/2024 9:20 AM EST Office Visit Family Practice [facility] 132 [facility] [place] [address] Deon Rausch MD 132 [facility] [place] [address] 10/30/2024 9:00 AM EST Office Visit Neurology [facility] [address] [place] [address] Sandy Juárez PA-C [address] [place] [address] 11/03/2024 11:00 AM EST Office Visit Sleep Disorders Ctr [facility] [place] [address] [place] [phone] Christina Birch DO [address] [place] [address] 11/27/2024 9:40 AM EST Office Visit Nephrology, [facility] [address] [place] [address] Fidelina Baumann MD [address] [place] [address] Scheduled Procedures Name Priority Associated Diagnoses Date/Ti [...] Additional history exists CKD PHOS USE SMARTSET 28902 06/18/202405/26, 06/16/2023, 06/15/2023, Additional history exists GFR 07/09/2024 01/08/2024, 09/25, 08/02/2023, Additional history exists HbA1c 08/01/2024 01/30/2024, 08/25, 07/31/2023, Additional history exists Diabetic Eye Exam 09/13/2024 09/13/2023, , 09/13/2023, Additional history exists B-12 09/18/2024 09/18/2023, 08/24, 2020, Additional history exists Albumin/Creatinine Ratio 01/07/2025 024, 03/09/2023, 12/22/2022, Additional history exists CKD HGB USE SMARTSET 93168 01/07/202501/07, 01/08/2024, 10/15/2023, Additional history exists TSH [...] this encounter Medical Devices Implanted Type Area Loom Technician Device Identifier Shelf Expiration Date Model / Serial / Lot Cath Roselia Single Lumen - [id number] Implanted:Qty : 1 on 03/12/2008 at [facility] Left: Chest [employer] *DO NOT USE* 07/25/2012 21-4053-24 / / [id number] Sut Steel 6 M654g - [id number] Implanted:Qty : 1 on 11/01/2010 at OR [facility] N/A: Chest DO NOT USE M654G / / Sut Steel 6 M654g - [id number] Implanted:Qty : 1 on 11/01/2010 at OR [facility] N/A: Chest DO NOT USE M654G / / Valve Tarsha Aortic [id number] - [id number] Implanted:Qty : 1 on 11/01/2010 at OR [facility] N/A: Heart [employer] DANIEL 05/20/2012 2800TFX-25 / / [id number] Mesh Soft 25s35td - [id number] Implanted:Qty : 1 on 10/10/2019 by Gigi Hendrickson MD at OR [facility] N/A: Abdomen CR BARD : DAVOL [id number] 05/21/2024 [id number] / / [id number] Lens 22.5 Sn60wf - [id number] - [id number] Implanted:Qty : 1 on 09/15/2020 by Renaldo Cook, Cece Acosta MD at OR [facility] Right: Eye IVA : SURGICAL [id number] 05/13/2025 SN60 WF.225 / [id number] / [id number] Lens 21.5 Sn60wf - [id number] - [id number] Implanted:Qty : 1 on 12/19/2023 by Ramsey Burnett DO at OR [facility] Left: Eye IVA : SURGICAL 12/03/2024 SN60WF.2 15 / [id number] / documented as of this encounter Visit Diagnoses Diagnosis Candidal intertrigo Candidiasis of skin and nails documented in this encounter Advance Directives * [...] statute hierarchy) Jovita Ovalle Adult Child Health Member Of The Legislative Assembly resentative (appointed verbally by patient or by statute hierarchy) [email or web address] Care Teams Engine Service Repairer Relationship Specialty Start Date End Date Deon Rausch MD [address] [place] [address] PCP - General Family Medicine 02/12/20 documented as of this encounter
--- OUTSIDE RECORDS SUMMARY | 2024-06-05 14:42 | External Medical Summary | Summary of Care ---
Author Name Unknown Organization [facility] Address [address] [place] [address] Phone [phone] Care Team Providers Care Ophthalmic Pathologist Name Role Phone Gregory Rausch MD Primary Care Provider [phone] Encounter Details Date Type Department Care Team (Late st Contact Info) Description 04/16/2024 Orders Only PATIENT PORTAL DO NOT DELETE THIS DEPT USED [facility] [address] Allergies Active Allergy Reactions Criticality Noted Date Comments Adhesive Tape 07/02/2017 Can tolerate band-aids Glycerin Other (Please comment) 03/12/2008 Topical agents with glycein-burning & itching Lactose 12/09/2014 Dairy - gas Lisinopril Cough 01/21/2010 Monosodium Glutamate Edema Other 03/12/2008 Hands and feet Penicillins Rash 11/14/2007 documented as of this encounter (statuses as of 04/16/2024) Medications Medication Sig Dispensed Refills Start Date [...] (Glucose)Indications :DM type 2, not at goal ([facility]) 3 every 15 minutes until [...] heart failure with preserved ejection fraction (HFpEF) ([facility]) Take 1 Tablet by mouth in the morning and 1 Tablet before bedtime. 180 Tablet 3 01/22/2024 Active BD Pen Needle Short U/F 31G X 8 MMIndications:Type 2 diabetes mellitus with hemoglobin A1c goal of less than 7.0% ([facility]),Type 2 diabetes mellitus with stage 3a chronic kidney disease, with long-term current use of insulin ([facility]) Use with insulin 4 times [...] hemoglobin A1c goal of less than 7.0% ([facility]),Type 2 diabetes mellitus with stage 3a chronic kidney disease, with long-term current use of insulin ([facility]) Inject 36 Units under the skin in the morning. 6 mL 2 03/14/2024 Active Insulin Aspart 100 UNIT/ML Injection Solution (NovoLOG)Indications :Type 2 diabetes mellitus with hemoglobin A1c goal of less than 7.0% ([facility]) Use up to 50 units per day in Omnipod. 03/31/2024 Active Omnipod 5 G6 Intro (Gen 5) Kit Use as directed. Use to delivery insulin via insulin pump 1 Kit 5 04/10/2024 Active Nystatin 282668 UNIT/GM External Powder (Nystop)Indications: Candidal intertrigo APPLY TOPICALLY TO AFFECTED AREA 3 TIMES A DAY. 60 g 1 04/14/2024 Active documented as of this encounter (statuses as of 04/16/2024) Active Problems Problem Noted Date Diagnosed Date [...] eye 09/28/2020 Coronary artery disease invo lving tolowa dee-ni' coronary artery of tolowa dee-ni' heart without angina pectoris 12/16/2019 Last Assessment [...] as of this encounter (statuses as of 04/16/2024) Resolved Problems Problem Noted Date Diagnosed Date [...] 12/21/2016 Diabetes mellitus 01/05/2014 12/21/2016 LEYVA RESEARCH OTHER*[id number] 01/05/2014 12/21/2016 Axillary pain 11/03/2013 12/21/2016 Obesity, [...] cath 09/201008/26/2011 12/21/2016 FOLLOWING SURGERY, UNSPECIFI ED ([facility] BSO 08/25/2011) 08/26/2011 12/21/2016 ADVANCE DIRECTIVE INFORMATION 04/17/2011 12/21/2016 Overview: Yes, Patient instructed to provide copy of advance directive for provider to review and to be scanned into Electronic Medical Record ADVANCE DIRECTIVE INFORMATION 03/01/2011 12/21/2016 Overview: Yes, Patient instructed to provide copy of advance directive for provider to review and to be scanned into Electronic Medical Record [facility] V710 Clinical Trial*[id number] 12/22/2010 04/14/2011 S/P aortic valve replacement 12/01/2010 08/26/2011 S/P AORTIC VALVE REPLACEMENT - #25 pericardial Hernandez valve 11/01/2010 06/28/2018 Overview: Aortic valve replacement with #25 pericardial Hernandez valve, model 2800TFX, serial number [id number] (Dr. Walker) [facility] V710 Clinical Trial*[id number] 10/18/2010 11/21/2010 Type 2 diabetes mellitus wit [...] as of this encounter (statuses as of 04/16/2024) Immunizations Name Administration Dates Next Due COVID-19 mRNA, LNP-s, No Pre serve, 2-Dose Series (Moderna) 10/25/2021,02/16/2021,01/18/2021 HEP A - Hepatitis A (Adult > 18 yrs) 06/07/2018, 12/05/2017 Hepatitis B, 20+ yrs 06/07/2018,01/08/20 18,12/05/2017,06/15,10/27/2013,09/12/2013 Pneumococcal Conjugate Vacci ne, 20-valent (Uulzlud59) 06/22/2023 Pneumococcal Polysaccharide PPV23 (Pneumovax) 01/02/2008 Seasonal [...] Description 04/25/2024 10:00 AM EDT Home Visit [facility] [address] [place] [address] Jaycee Sorto RN [address] [place] [address] 05/01/2024 9:30 AM EDT Home Visit Care Coordination and Integration [address] [place], [place] [phone] Angelica Navas, Community Health Salesperson Hosiery [address] [place] [address] 05/09/2024 9:00 AM EDT Imaging Radiology [facility] 1st [facility] 132 [facility] [place] [address] 06/03/2024 10:00 AM EDT Office Visit Gastroenterology, [facility] 132 [facility] [place] [address] Arina Knapp PA-C [address] [place] [address] 07/17/2024 9:30 AM EDT Office Visit Cardiology, [facility] [address] [facility] [place] [address] Roberto Carlos Muniz, DO 132 [facility] [place] [address] 08/12/2024 9:20 AM EST Office Visit Family Practice [facility] 132 [facility] [place] [address] Gregory Rausch MD 132 [facility] [place] [address] 10/30/2024 9:00 AM EST Office Visit Neurology [facility] [address] [place] [address] Sandy Juárez PA-C [address] [place] [address] 11/03/2024 11:00 AM EST Office Visit Sleep Disorders Ctr [facility] 132 [facility] [place] [phone] Christina Birch, 132 [facility] [place] [address] 11/27/2024 9:40 AM EST Office Visit Nephrology, [facility] [place] [address] [place] [address] Fidelina Baumann MD 200 [facility] [place] [address] Scheduled Procedures Name Priority Associated Diagnoses Date/Ti [...] Additional history exists CKD PHOS USE SMARTSET 83502 06/18/202405/26, 06/16/2023, 06/15/2023, Additional history exists GFR 07/09/2024 01/08/2024, 09/25, 08/02/2023, Additional history exists HbA1c 08/01/2024 01/30/2024, 08/25, 07/31/2023, Additional history exists Diabetic Eye Exam 09/13/2024 09/13/2023, , 09/13/2023, Additional history exists B-12 09/18/2024 09/18/2023, 08/24, 2020, Additional history exists Albumin/Creatinine Ratio 01/07/2025 024, 03/09/2023, 12/22/2022, Additional history exists CKD HGB USE SMARTSET 27166 01/07/202501/074, 01/08/2024, 10/15/2023, Additional history exists TSH 01/07/2025 [...] this encounter Medical Devices Implanted Type Area Remote Sensing Scientist Device Identifier Shelf Expiration Date Model / Serial / Lot Cath Roselia Single Lumen - [id number] Implanted:Qty : 1 on 03/12/2008 at OR [facility] Left: Chest [facility] *DO NOT USE* 07/25/2012 21-4053-24 / / [id number] Sut Steel 6 M654g - [id number] Implanted:Qty : 1 on 11/01/2010 at OR [facility] N/A: Chest DO NOT USE M654G / / Sut Steel 6 M654g - [id number] Implanted:Qty : 1 on 11/01/2010 at OR [facility] N/A: Chest DO NOT USE M654G / / Valve Tarsha Aortic [id number] - [id number] Implanted:Qty : 1 on 11/01/2010 at OR [facility] N/A: Heart [employer] DANIEL 05/20/2012 2800TFX-25 / / [id number] Mesh Soft [id number] - [id number] Implanted:Qty : 1 on 10/10/2019 by Gigi Hendrickson MD at [place] [facility] N/A: Abdomen CR BARD : DAVOL [id number] 05/21/2024 [id number] / / [id number] Lens 22.5 Sn60wf - [id number] - [id number] Implanted:Qty : 1 on 09/15/2020 by Renaldo Cook, Cece Acosta MD at OR [facility] Right: Eye IVA : SURGICAL [id number] 05/13/2025 SN60 WF.225 / [id number] / [id number] Lens 21.5 Sn60wf - [id number] - [id number] Implanted:Qty : 1 on 12/19/2023 by Ramsey Burnett DO at OR [facility] Left: Eye IVA : SURGICAL 12/03/2024 SN60WF.2 15 / [id number] / documented as of this encounter [...] statute hierarchy) Jovita Yamile Adult Child Health Supervisor Power Reactor resentative (appointed verbally by patient or by statute hierarchy) Care Teams Ophthalmic Pathologist Relationship Specialty Start Date End Date Gregory Rausch MD [address] [place] [address] PCP - General Family Medicine 02/12/20 documented as of this encounter
--- OUTSIDE RECORDS SUMMARY | 2024-06-05 14:42 | External Medical Summary | Summary of Care ---
Author Name Unknown Organization [facility] Address [address] [place] [address] Phone [phone] Care Team Providers Care Tunnel Heading Supervisor Name Role Phone Gregory Rausch MD Primary Care Provider [phone] Encounter Details Date Type Department Care Team (Late st Contact Info) Description 04/15/2024 Population Health External Data Unspecified Department Allergies [...] Capsules by mouth in the morning. Active MissingLINKTouch Verio In Vitro Strip (Glucose Blood) Use [...] of insulin ([facility]) Inject 36 Units under the [...] pump 1 Kit 5 04/10/2024 Active Nystatin 460653 UNIT/GM External Powder (Nystop)Indications: Candidal intertrigo APPLY [...] 12/21/2016 Diabetes mellitus 01/05/2014 12/21/2016 LEYVA RESEARCH OTHER*[id number] 01/05/2014 12/21/2016 Axillary pain 11/03/2013 12/21/2016 Obesity, [...] scanned into Electronic Medical Record [facility] V710 Clinical Trial*[id number] 12/22/2010 04/14/2011 S/P aortic valve replacement 12/01/2010 08/26/2011 S/P AORTIC VALVE REPLACEMENT - #25 pericardial Mc valve 11/01/2010 06/28/2018 Overview: Aortic valve replacement with #25 pericardial Mc valve, model 2800TFX, serial number [id number] (Dr. Walker) [facility] V710 Clinical Trial*[id number] 10/18/2010 11/21/2010 Type 2 diabetes mellitus wit [...] 06/07/2018,01/08/20 18,12/05/2017,06/15,10/27/2013,09/12/2013 Pneumococcal Conjugate Vacci ne, 20-valent (Fqgwzdl31) 06/22/2023 Pneumococcal Polysaccharide PPV23 (Pneumovax) 01/02/2008 Seasonal [...] Visit Care Coordination and Integration [address] [facility] [place] [address] Angelica Navas, Community Health Cement Based Materials Pump Tender [address] [facility] [place] [address] 05/08/2024 4:00 PM EDT [facility] [address] [place] [address] Jaycee Sorto RN [address] [place] [address] 05/09/2024 9:00 AM EDT Imaging Radiology [facility] 1st [facility] 132 [facility] [place] [address] 06/03/2024 10:00 AM EDT Office Visit Gastroenterology, [facility] 132 [facility] [place] [address] Arina Knapp PA-C [address] [place] [address] 07/17/2024 9:30 AM EDT Office Visit Cardiology, [facility] 132 [facility] [place] [address] Roberto Carlos Muniz, 132 [facility] [place] [address] 08/12/2024 9:20 AM EST Office Visit Family Practice [facility] 132 [facility] [place] [address] Gregory Rausch MD 132 [facility] [place] [address] 10/30/2024 9:00 AM EST Office Visit Neurology [facility] [address] [place] [address] Sandy Juárez PA-C [address] [place] [address] 11/03/2024 11:00 AM EST Office Visit Sleep Disorders Ctr [facility] 132 [facility] [place] [phone] Christina Birch, 132 [facility] [place] [address] 11/27/2024 9:40 AM EST Office Visit Nephrology, [facility] [address] [place] [address] Fidelina Baumann MD 200 [place] [address] Scheduled Procedures Name Priority Associated Diagnoses Date/Ti [...] Additional history exists CKD PHOS USE SMARTSET 01608 06/18/202405/26, 06/16/2023, 06/15/2023, Additional history exists GFR 07/09/2024 01/08/2024, 09/25, 08/02/2023, Additional history exists HbA1c 08/01/2024 01/30/2024, 08/25, 07/31/2023, Additional history exists Diabetic Eye Exam 09/13/2024 09/13/2023, , 09/13/2023, Additional history exists B-12 09/18/2024 09/18/2023, 08/24, 2020, Additional history exists Albumin/Creatinine Ratio 01/07/2025 024, 03/09/2023, 12/22/2022, Additional history exists CKD HGB USE SMARTSET 40506 01/07/202501/07, 01/08/2024, 10/15/2023, Additional history exists TSH [...] this encounter Medical Devices Implanted Type Area Nutrition And Dietetics Instructor Device Identifier Shelf Expiration Date Model / Serial / Lot Cath Roselia Single Lumen - [id number] Implanted:Qty : 1 on 03/12/2008 at [facility] Left: Chest [facility] *DO NOT USE* 07/25/2012 21-4053-24 / / [id number] Sut Steel 6 M654g - [id number] Implanted:Qty : 1 on 11/01/2010 at OR [facility] N/A: Chest DO NOT USE M654G / / Sut Steel 6 M654g - [id number] Implanted:Qty : 1 on 11/01/2010 at OR [facility] N/A: Chest DO NOT USE M654G / / Valve Tarsha Aortic [id number] - [id number] Implanted:Qty : 1 on 11/01/2010 at OR [facility] N/A: Heart [employer] DANIEL 05/20/2012 2800TFX-25 / / [id number] Mesh Soft [id number] - [id number] Implanted:Qty : 1 on 10/10/2019 by Gigi Hendrickson MD at OR [facility] N/A: Abdomen CR BARD : DAVOL [id number] 05/21/2024 [id number] / / [id number] Lens 22.5 Sn60wf - [id number] - [id number] Implanted:Qty : 1 on 09/15/2020 by Cece Roland MD at OR [facility] Right: Eye IVA : SURGICAL [id number] 05/13/2025 SN60 WF.225 / [id number] 6 / [id number] Lens 21.5 Sn60wf - [id number] - [id number] Implanted:Qty : 1 on 12/19/2023 by Ramsey Burnett DO at OR [facility] Left: Eye IVA : SURGICAL 12/03/2024 SN60WF.2 15 / [id number] / documented as of this encounter [...] statute hierarchy) Jovita Yamile Adult Child Health Advertisement Distributor resentative (appointed verbally by patient or by statute hierarchy) [email or web address] Care Teams Tunnel Heading Supervisor Relationship Specialty Start Date End Date Gregory Rausch MD [address] [place] [address] PCP - General Family Medicine 02/12/20 documented as of this encounter
--- OUTSIDE RECORDS SUMMARY | 2024-06-05 14:43 | External Medical Summary | Summary of Care ---
Author Name Unknown Organization [facility] Address [address] [place] [address] Phone [phone] Care Team Providers Care Build Technician Name Role Phone Gregory Rausch MD Primary Care Provider [phone] Reason for Visit * Reason Onset Date Comments [facility]: Maintenance 04/13/2024 Encounter Details Date Type Department Care Team (Late st Contact Info) Description 04/13/2024 12:15 PM EDT Scheduled Telephone [facility], [facility] [address] [place] [address] [facility], Nurse [place] [id number] [place] [address] Allergies Active Allergy Reactions Criticality Noted Date Comments Adhesive Tape 07/02/2017 Can tolerate band-aids Glycerin Other (Please comment) 03/12/2008 Topical agents with glycein-burning & itching Lactose 12/09/2014 Dairy - gas Lisinopril Cough 01/21/2010 Monosodium Glutamate Edema Other 03/12/2008 Hands and feet Penicillins Rash 11/14/2007 documented as of this encounter (statuses as of 04/13/2024) Medications Medication Sig Dispensed Refills Start Date [...] (Glucose)Indications :DM type 2, not at goal ([facility]) 3 every 15 minutes until glucose is [...] failure with preserved ejection fraction (HFpEF) ([facility]) Take 1 Tablet by mouth in the morning and 1 Tablet before bedtime. 180 Tablet 3 01/22/2024 Active BD Pen Needle Short U/F 31G X 8 MMIndications:Type 2 diabetes mellitus with hemoglobin A1c goal of less than 7.0% ([facility]),Type 2 diabetes mellitus with stage 3a chronic kidney disease, with long-term current use of insulin ([facility]) Use with insulin 4 times daily [...] by mouth in the morning. 90 Tablet 01/10/2024 Active Levothyroxine Sodium 75 MCG Oral Tablet (Levoxyl)Indications :Hypothyroidism TAKE 1 TAB BY MOUTH DAILY FIRST THING IN AM, AT LEAST 30 MIN PRIOR TO BREAKFAST OR OTHER MEDICATIONS 90 Tablet 2 01/10/2024 Active Nystatin 790010 UNIT/GM External Powder (Nystop)Indications: Candidal intertrigo Apply topically to affected area 3 times a day. Apply to affected areas 60 g 1 01/10/2024 Active Aquaphor External Ointment Apply topically [...] A1c goal of less than 7.0% ([facility]),Type 2 diabetes mellitus with stage 3a chronic kidney disease, with long-term current use of insulin ([facility]) Inject 36 Units under the skin in the morning. 6 mL 2 03/14/2024 Active Insulin Aspart 100 UNIT/ML Injection Solution (NovoLOG)Indications :Type 2 diabetes mellitus with hemoglobin A1c goal of less than 7.0% ([facility]) Use up to 50 units per day in Omnipod. 03/31/2024 Active Omnipod 5 G6 Intro (Gen 5) Kit Use as directed. Use to delivery insulin via insulin pump 1 Kit 5 04/10/2024 Active documented as of this encounter (statuses as of 04/13/2024) Active Problems Problem Noted Date Diagnosed Date [...] eye 09/28/2020 Coronary artery disease invo lving [place] coronary artery of [place] heart without angina pectoris 12/16/2019 Last Assessment [...] as of this encounter (statuses as of 04/13/2024) Resolved Problems Problem Noted Date Diagnosed Date [...] 12/21/2016 Diabetes mellitus 01/05/2014 12/21/2016 LEYVA RESEARCH OTHER*[id number] 01/05/2014 12/21/2016 Axillary pain 11/03/2013 12/21/2016 Obesity, [...] cath 09/201008/26/2011 12/21/2016 FOLLOWING SURGERY, UNSPECIFI ED ([facility] BSO 08/25/2011) 08/26/2011 12/21/2016 ADVANCE DIRECTIVE INFORMATION 04/17/2011 12/21/2016 Overview: Yes, Patient instructed to provide copy of advance directive for provider to review and to be scanned into Electronic Medical Record ADVANCE DIRECTIVE INFORMATION 03/01/2011 12/21/2016 Overview: Yes, Patient instructed to provide copy of advance directive for provider to review and to be scanned into Electronic Medical Record [facility] V710 Clinical Trial*[id number] 12/22/2010 04/14/2011 S/P aortic valve replacement 12/01/2010 08/26/2011 S/P AORTIC VALVE REPLACEMENT - #25 pericardial Mc valve 11/01/2010 06/28/2018 Overview: Aortic valve replacement with #25 pericardial Mc valve, model 2800TFX, serial number [id number] (Dr. Walker) [facility] V710 Clinical Trial*[id number] 10/18/2010 11/21/2010 Type 2 diabetes mellitus wit [...] as of this encounter (statuses as of 04/13/2024) Immunizations Name Administration Dates Next Due COVID-19 mRNA, LNP-s, No Pre serve, 2-Dose Series (Moderna) 10/25/2021,02/16/2021,01/18/2021 HEP A - Hepatitis A (Adult > 18 yrs) 06/07/2018, 12/05/2017 Hepatitis B, 20+ yrs 06/07/2018,01/08/20 18,12/05/2017,06/15,10/27/2013,09/12/2013 Pneumococcal Conjugate Vacci ne, 20-valent ([id number]) 06/22/2023 Pneumococcal Polysaccharide PPV23 (Pneumovax) 01/02/2008 Seasonal [...] encounter Miscellaneous Notes * Telephone Encounter - Gary Weiner RN - 04/13/2024 12:55 PM EDT F/U PC [facility] trigger 04/12 +3lbs No answer. LVM to call [facility] back with any s/s. Provided number on message. Kailynn E Husam, RN documented in this encounter Plan of Treatment Upcoming Encounters Date Type Department Care Team (Late st Contact Info) Description 04/14/2024 8:00 AM EDT Office Visit Neurology [facility] [address] [facility] [place] [address] Cinthia Andrews PA-C [address] [facility] [place] [address] 04/25/2024 10:00 AM EDT [facility] [address] [facility] [place] [address] Jaycee Sorto RN [address] [facility] [place] [address] 05/01/2024 9:30 AM EDT Home Visit [facility] [address] [place] [address] Angelica Navas, Community [facility] Wet Mixer [address] [place] [address] 06/03/2024 10:00 AM EDT Office Visit Gastroenterology, [facility] [address] [facility] [place] [address] Arina Knapp PA-C [address] [place] [address] [place] [address] 07/17/2024 9:30 AM EDT Office Visit Cardiology, [facility] [address] [facility] [place] [address] Roberto Carlos Muniz DO [address] [facility] [place] [address] 08/12/2024 9:20 AM EST Office Visit Family Practice [facility] [address] [place] [address] Gregory Rausch MD [address] [place] [address] 11/03/2024 11:00 AM EST Office Visit Sleep Disorders Ctr [facility] [address] [place] [id number] Christina Birch DO [address] [place] [address] 11/27/2024 9:40 AM EST Office Visit Nephrology, [facility] [address] [place] [address] Fidelina Baumann MD [address] [place] [address] Scheduled Procedures Name Priority Associated Diagnoses Date/Ti [...] Additional history exists CKD PHOS USE SMARTSET 51381 06/18/202405/26, 06/16/2023, 06/15/2023, Additional history exists GFR 07/09/2024 01/08/2024, 09/25, 08/02/2023, Additional history exists HbA1c 08/01/2024 01/30/2024, 08/25, 07/31/2023, Additional history exists Diabetic Eye Exam 09/13/2024 09/13/2023, , 09/13/2023, Additional history exists B-12 09/18/2024 09/18/2023, 08/24, 2020, Additional history exists Albumin/Creatinine Ratio 01/07/2025 024, 03/09/2023, 12/22/2022, Additional history exists CKD HGB USE SMARTSET 01374 01/07/202501/07, 01/08/2024, 10/15/2023, Additional history exists TSH [...] this encounter Medical Devices Implanted Type Area Servomechanism Assembler Device Identifier Shelf Expiration Date Model / Serial / Lot Cath Roselia Single Lumen - [id number] Implanted:Qty : 1 on 03/12/2008 at OR [facility] Left: Chest [employer] *DO NOT USE* 07/25/2012 21-4053-24 / / [id number] Sut Steel 6 M654g - [id number] Implanted:Qty : 1 on 11/01/2010 at OR [facility] N/A: Chest DO NOT USE M654G / / Sut Steel 6 M654g - [id number] Implanted:Qty : 1 on 11/01/2010 at OR [facility] N/A: Chest DO NOT USE M654G / / Valve Tarsha Aortic [id number] - [id number] Implanted:Qty : 1 on 11/01/2010 at OR [facility] N/A: Heart [employer] DANIEL 05/20/2012 2800TFX-25 / / [id number] Mesh Soft [id number] - [id number] Implanted:Qty : 1 on 10/10/2019 by Gigi Hendrickson MD at OR [facility] N/A: Abdomen CR BARD : DAVOL [id number] 05/21/2024 [id number] / / [id number] Lens 22.5 Sn60wf - [id number] - [id number] Implanted:Qty : 1 on 09/15/2020 by Renaldo Cook, Cece Acosta MD at OR [facility] Right: Eye IVA : SURGICAL [id number] 05/13/2025 SN60 WF.225 / [id number] / [id number] Lens 21.5 Sn60wf - [id number] - [id number] Implanted:Qty : 1 on 12/19/2023 by Ramsey Burnett DO at OR [facility] Left: Eye IVA : SURGICAL 12/03/2024 SN60WF.2 15 / [id number] / documented as of this encounter [...] statute hierarchy) Jovita Ovalle Adult Child Health Comedian resentative (appointed verbally by patient or by statute hierarchy) [email or web address] Care Teams Build Technician Relationship Specialty Start Date End Date Gregory Rausch MD [address] [place] [address] PCP - General Family Medicine 02/12/20 documented as of this encounter
--- OUTSIDE RECORDS SUMMARY | 2024-06-05 14:43 | External Medical Summary | Summary of Care ---
Author Name Unknown Organization [facility] Address [address] [place] [address] Phone [phone] Care Team Providers Care Professor Of Sociology Name Role Phone Gregory Rausch MD Primary Care Provider [phone] Encounter Details Date Type Department Care Team (Late st Contact Info) Description 03/17/2024 Telephone Family Practice [facility] [address] [facility] [place] [address] [facility] [address] [facility] [place] [address] Allergies Active Allergy Reactions Criticality Noted [...] (Glucose)Indication s:DM type 2, not at goal ([facility]) 3 every 15 minutes until glucose [...] Capsules by mouth in the morning. Active Atlas ScientificTouch Verio In Vitro Strip (Glucose Blood) Use up to 4 times a day E11.9 100 Strip 11 01/22/2024 Active Potassium Chloride [facility] 10 MEQ Oral Tablet Extended ReleaseIndications: Acute on chronic heart failure with preserved ejection fraction (HFpEF) ([facility]) Take 1 Tablet by mouth in the morning and 1 Tablet before bedtime. 180 Tablet 3 01/22/2024 Active BD Pen Needle Short U/F 31G X 8 MMIndications:Type 2 diabetes mellitus with hemoglobin A1c goal of less than 7.0% ([facility]),Type 2 diabetes mellitus with stage 3a chronic kidney disease, with long-term current use of insulin ([facility]) Use with insulin 4 times daily [...] MEDICATIONS 90 Tablet 2 01/10/2024 Active Nystatin 346779 UNIT/GM External Powder (Nystop)Indications :Candidal intertrigo Apply topically to affected area 3 [...] hemoglobin A1c goal of less than 7.0% ([facility]),Type 2 diabetes mellitus with stage 3a chronic kidney disease, with long-term current use of insulin ([facility]) Inject 36 Units under the skin in the morning. 6 mL 2 03/14/2024 Active Diclofenac Sodium 0.1 % Ophthalmic Solution (Voltaren) Instill 1 Drop into the left eye in the morning and 1 Drop at noon and 1 Drop in the evening and 1 Drop before bedtime. 2.5 mL 1 01/03/2024 04/08/20 24 Discontinu ed(Medicat ion List Clean Up) Omnipod 5 G6 Intro (Gen 5) Kit Use as directed. Use to delivery insulin via insulin pump 02/04/2024 04/10/20 24 Discontinu ed(Refill) documented as of this [...] eye 09/28/2020 Coronary artery disease invo lving [place] coronary artery of [place] heart without angina pectoris 12/16/2019 Last Assessment [...] 12/21/2016 Diabetes mellitus 01/05/2014 12/21/2016 LEYVA RESEARCH OTHER*[id number] 01/05/2014 12/21/2016 Axillary pain 11/03/2013 12/21/2016 Obesity, [...] 12/21/2016 FOLLOWING SURGERY, UNSPECIFI ED ([facility] BSO 08/25/2011) 08/26/2011 12/21/2016 ADVANCE DIRECTIVE INFORMATION 04/17/2011 12/21/2016 Overview: Yes, Patient instructed to provide copy of advance directive for provider to review and to be scanned into Electronic Medical Record ADVANCE DIRECTIVE INFORMATION 03/01/2011 12/21/2016 Overview: Yes, Patient instructed to provide copy of advance directive for provider to review and to be scanned into Electronic Medical Record [facility] V710 Clinical Trial*[id number] 12/22/2010 04/14/2011 S/P aortic valve replacement 12/01/2010 08/26/2011 S/P AORTIC VALVE REPLACEMENT - #25 pericardial Mc valve 11/01/2010 06/28/2018 Overview: Aortic valve replacement with #25 pericardial Mc valve, model 2800TFX, serial number [id number] (Dr. Walker) [facility] V710 Clinical Trial*[id number] 10/18/2010 11/21/2010 Type 2 diabetes mellitus wit [...] 06/07/2018,01/08/20 18,12/05/2017,06/15,10/27/2013,09/12/2013 Pneumococcal Conjugate Vacci ne, 20-valent ([id number]) 06/22/2023 Pneumococcal Polysaccharide PPV23 (Pneumovax) 01/02/2008 Seasonal [...] encounter Miscellaneous Notes * Telephone Encounter - Gregory Rausch MD - 03/17/2024 1:12 PM EDT Please have MTM reach out again to patient. I saw her today and she remains very confused about whoshe is supposed to be seeing and when in regards to her DEXCOM. Dr. Rausch documented in this encounter Plan of Treatment Upcoming Encounters Date Type Department Care Team (Late st Contact Info) Description 04/14/2024 8:00 AM EDT Office Visit Neurology [facility] [address] [place] [address] Cinthia Andrews PA-C [address] [facility] [place] [address] 04/25/2024 10:00 AM EDT Home Visit [facility] [address] [place] [address] Jaycee Sorto, RN [address] [facility] [place] [address] 05/01/2024 9:30 AM EDT Home Visit [facility] [address] [place] [address] Angelica Navas, [facility] Office Bookkeeper [address] [place] [address] 06/03/2024 10:00 AM EDT Office Visit Gastroenterology, [facility] [address] [place] [address] Arina Knapp PA-C [address] [place], [place] [address] [address] 07/17/2024 9:30 AM EDT Office Visit Cardiology, [facility] [address] [place] [address] Roberto Carlos Muniz, [address] [place] [address] 08/12/2024 9:20 AM EST Office Visit Family Practice [facility] [address] [place] [address] Gregory Rausch MD [address] [place] [address] 11/03/2024 11:00 AM EST Office Visit Sleep Disorders Ctr [facility], [place] [address] [place] [phone] Christina Birch DO [address] [place] [address] 11/27/2024 9:40 AM EST Office Visit Nephrology, [facility] [address] [place] [address] Fidelina Baumann MD [address] [place] [address] Scheduled Procedures Name Priority Associated Diagnoses Date/Ti [...] Additional history exists CKD PHOS USE SMARTSET 19820 06/18/202405/26, 06/16/2023, 06/15/2023, Additional history exists GFR 07/09/2024 01/08/2024, 09/25, 08/02/2023, Additional history exists HbA1c 08/01/2024 01/30/2024, 08/25, 07/31/2023, Additional history exists Diabetic Eye Exam 09/13/2024 09/13/2023, , 09/13/2023, Additional history exists B-12 09/18/2024 09/18/2023, 08/24, 2020, Additional history exists Albumin/Creatinine Ratio 01/07/2025 024, 03/09/2023, 12/22/2022, Additional history exists CKD HGB USE SMARTSET 22048 01/07/202501/07, 01/08/2024, 10/15/2023, Additional history exists TSH [...] encounter Medical Devices Implanted Type Area Manager Clinic Device Identifier Shelf Expiration Date Model / Serial / Lot Cath Roselia Single Lumen - [id number] Implanted:Qty : 1 on 03/12/2008 at OR [facility] Left: Chest [employer] *DO NOT USE* 07/25/2012 21-4053-24 / / [id number] Sut Steel 6 M654g - [id number] Implanted:Qty : 1 on 11/01/2010 at OR [facility] N/A: Chest DO NOT USE M654G / / Sut Steel 6 M654g - [id number] Implanted:Qty : 1 on 11/01/2010 at OR [facility] N/A: Chest DO NOT USE M654G / / Valve Tarsha Aortic [id number] - [id number] Implanted:Qty : 1 on 11/01/2010 at OR [facility] N/A: Heart [employer] 05/20/2012 2800TFX-25 / / [id number] Mesh Soft [id number] - [id number] Implanted:Qty : 1 on 10/10/2019 by Gigi Hendrickson MD at OR [facility] N/A: Abdomen CR BARD : DAVOL [id number] 05/21/2024 [id number] / / [id number] Lens 22.5 Sn60wf - [id number] - [id number] Implanted:Qty : 1 on 09/15/2020 by Renaldo Cook, Cece Acosta MD at [facility] Right: Eye IVA : SURGICAL [id number] 05/13/2025 SN60 WF.225 / [id number] / [id number] Lens 21.5 Sn60wf - [id number] - [id number] Implanted:Qty : 1 on 12/19/2023 by Ramsey Burnett DO at OR [facility] Left: Eye IVA : SURGICAL 12/03/2024 SN60WF.2 15 / [id number] / documented as of this encounter [...] statute hierarchy) Jovita Ovalle Adult Child Health Design Agent resentative (appointed verbally by patient or by statute hierarchy) [email or web address] Care Teams Professor Of Sociology Relationship Specialty Start Date End Date Gregory Rausch MD [address] [place] [address] PCP - General Family Medicine 02/12/20 documented as of this encounter
--- OUTSIDE RECORDS SUMMARY | 2024-06-05 14:43 | External Medical Summary | Summary of Care ---
Author Name Unknown Organization [facility] Address [address] [place] [address] Phone [phone] Care Team Providers Care Keno Writer Name Role Phone Gregory Rausch MD Primary Care Provider +1 [phone] Encounter Details Date Type Department Care Team (Late st Contact Info) Description 04/11/2024 9:30 AM EDT Home Visit [facility] [address] [place] [address] Angelica Navas, Community Health Financial Sales Advisor [address], [place] [id number] Allergies Active Allergy Reactions Criticality Noted Date [...] at goal ([facility]) 3 every 15 minutes until glucose [...] MEDICATIONS 90 Tablet 2 01/10/2024 Active Nystatin 726070 UNIT/GM External Powder (Nystop)Indications: Candidal intertrigo Apply [...] ([facility]) Inject 36 Units under the skin [...] eye 09/28/2020 Coronary artery disease invo lving tejon coronary artery of tejon heart without angina pectoris 12/16/2019 Last Assessment [...] 12/21/2016 Diabetes mellitus 01/05/2014 12/21/2016 [place]YVA RESEARCH OTHER*[id number] 01/05/2014 12/21/2016 Axillary pain 11/03/2013 12/21/2016 Obesity, [...] UNSPECIFI ED ([facility] BSO 08/25/2011) 08/26/2011 12/21/2016 ADVANCE DIRECTIVE INFORMATION 04/17/2011 12/21/2016 Overview: Yes, Patient instructed to provide copy of advance directive for provider to review and to be scanned into Electronic Medical Record ADVANCE DIRECTIVE INFORMATION 03/01/2011 12/21/2016 Overview: Yes, Patient instructed to provide copy of advance directive for provider to review and to be scanned into Electronic Medical Record [facility] V710 Clinical Trial*[id number] 12/22/2010 04/14/2011 S/P aortic valve replacement 12/01/2010 08/26/2011 S/P AORTIC VALVE REPLACEMENT - #25 pericardial Mc valve 11/01/2010 06/28/2018 Overview: Aortic valve replacement with #25 pericardial Mc valve, model 2800TFX, serial number [id number] (Dr. Walker) [facility] V710 Clinical Trial*[id number] 10/18/2010 11/21/2010 Type 2 diabetes mellitus wit [...] 06/07/2018,01/08/20 18,12/05/2017,06/15,10/27/2013,09/12/2013 Pneumococcal Conjugate Vacci ne, 20-valent ([id number]) 06/22/2023 Pneumococcal Polysaccharide PPV23 (Pneumovax) 01/02/2008 Seasonal [...] Progress Notes * Angelica Navas, Community Health Financial Sales Advisor - 04/14/2024 8:52 AM EDT Telemedicine visit: No Community Health Financial Sales Advisor (VALE) documentation: CHW arrived at patients apartment and had to ring in several times. Door unlock feature was not working for patient. CHW finally was able to get into apartment. When CHW arrived patient answered the door with only her brief on and a shirt and was just getting awake. Patient informed CHW that patient is moving to [facility] May 24. Has to be out of current apartment by May 25. . Apartment was full of packed boxes. New apartment number is [address] and is the 2nd apartment building. Patient checked her BS and it was 205. Patient was very chatty and hyperverbal. Patient appeared to be doing well and had no concerns or questions. Visit was ended due to CHW getting called away to another visit unexpectedly. Angelica Navas- Community Health Worker 1 Support Services/[facility] [email or web address] documented in this encounter Plan of Treatment Upcoming Encounters Date Type Department Care Team (Late st Contact Info) Description 04/25/2024 10:00 AM EDT [facility] Visit [facility], [facility] [address] [place] [address] aJycee Sorto RN [address] [facility] [place] [address] 05/01/2024 9:30 AM EDT Home Visit Care Coordination and Integration [address] [facility] [place] [address] Angelica Navas, Community Health Financial Sales Advisor [address] [place] [address] 05/09/2024 9:00 AM EDT Imaging Radiology [facility] [address] [place] [address] 06/03/2024 10:00 AM EDT Office Visit Gastroenterology, [facility] [address] [place] [address] Arina Knapp PA-C [address] [place] [address] [place] [address] 07/17/2024 9:30 AM EDT Office Visit Cardiology, [facility] [address] [facility] [place] [address] Roberto Carlos Muniz, DO [address] [place] [address] 08/12/2024 9:20 AM EST Office Visit Family Practice [facility] [place] [address] Gregory Rausch MD [address] [facility] [place] [address] 10/30/2024 9:00 AM EST Office Visit Neurology [facility] [address] [place] [address] Sandy Juárez PA-C [address] [place] [address] 11/03/2024 11:00 AM EST Office Visit Sleep Disorders Ctr [facility] [address] [facility] [place] [phone] Christina Birch, DO [address] [facility] [place] [address] 11/27/2024 9:40 AM EST Office Visit Nephrology, [facility] [address] [facility] [place] [address] Fidelina Baumann MD [address] [facility] [place] [address] Scheduled Procedures Name Priority Associated Diagnoses Date/Ti [...] Additional history exists CKD PHOS USE SMARTSET 96825 06/18/202405/26, 06/16/2023, 06/15/2023, Additional history exists GFR 07/09/2024 01/08/2024, 09/25, 08/02/2023, Additional history exists HbA1c 08/01/2024 01/30/2024, 08/25, 07/31/2023, Additional history exists Diabetic Eye Exam 09/13/2024 09/13/2023, , 09/13/2023, Additional history exists B-12 09/18/2024 09/18/2023, 08/24, 2020, Additional history exists Albumin/Creatinine Ratio 01/07/2025 024, 03/09/2023, 12/22/2022, Additional history exists CKD HGB USE SMARTSET 73881 01/07/202501/07, 01/08/2024, 10/15/2023, Additional history exists TSH [...] this encounter Medical Devices Implanted Type Area Chain Maker Device Identifier Shelf Expiration Date Model / Serial / Lot Cath Roselia Single Lumen - [id number] Implanted:Qty : 1 on 03/12/2008 at OR [facility] Left: Chest [facility] *DO NOT USE* 07/25/2012 21-4053-24 / / [id number] Sut Steel 6 M654g - [id number] Implanted:Qty : 1 on 11/01/2010 at OR [facility] N/A: Chest DO NOT USE M654G / / Sut Steel 6 M654g - [id number] Implanted:Qty : 1 on 11/01/2010 at OR [facility] N/A: Chest DO NOT USE M654G / / Valve Tarsha Aortic [id number] - [id number] Implanted:Qty : 1 on 11/01/2010 at OR [facility] N/A: Heart MC [employer] DANIEL 05/20/2012 2800TFX-25 / / [id number] Mesh Soft [id number] - [id number] Implanted:Qty : 1 on 10/10/2019 by Gigi Hendrickson MD at [place] [facility] N/A: Abdomen CR BARD : DAVOL [id number] 05/21/2024 [id number] / / [id number] Lens 22.5 Sn60wf - [id number] - [id number] Implanted:Qty : 1 on 09/15/2020 by Cece Roland MD at OR [facility] Right: Eye IVA : SURGICAL [id number] 05/13/2025 SN60 WF.225 / [id number] / [id number] Lens 21.5 Sn60wf - [id number] - [id number] Implanted:Qty : 1 on 12/19/2023 by Ramsey Burnett DO at OR [facility] Left: Eye IVA : SURGICAL 12/03/2024 SN60WF.2 15 / [id number] / documented as of this encounter [...] statute hierarchy) Jovita Ovalle Adult Child Health Cost Accounting Clerk resentative (appointed verbally by patient or by statute hierarchy) [email or web address] Care Teams Keno Writer Relationship Specialty Start Date End Date Gregory Rausch MD [address] [place] [address] PCP - General Family Medicine 02/12/20 documented as of this encounter
--- OUTSIDE RECORDS SUMMARY | 2024-06-05 14:43 | External Medical Summary | Summary of Care ---
Author Name Unknown Organization [facility] Address [address] [place] [address] Phone [phone] Care Team Providers Care Airplane Gastank Liner Assembler Name Role Phone Gregory Rausch MD Primary Care Provider [phone] Reason for Visit * Reason Onset Date Comments Appointment 04/11/2024 Encounter Details Date Type Department Care Team (Late st Contact Info) Description 04/11/2024 Telephone [facility], [facility] [address] [place] [address] [facility] sewickley[facility]anna Harper, DO [address] [place] [address] Appointment (/) Allergies Active Allergy Reactions Criticality Noted Date Comments Adhesive Tape 07/02/2017 Can tolerate band-aids Glycerin Other (Please comment) 03/12/2008 Topical agents with glycein-burning & itching Lactose 12/09/2014 Dairy - gas Lisinopril Cough 01/21/2010 Monosodium Glutamate Edema Other 03/12/2008 Hands and feet Penicillins Rash 11/14/2007 documented as of this encounter (statuses as of 04/11/2024) Medications Medication Sig Dispensed Refills Start Date [...] type 2, not at goal ([facility]) 3 every 15 minutes until glucose [...] MEDICATIONS 90 Tablet 2 01/10/2024 Active Nystatin 915951 UNIT/GM External Powder (Nystop)Indications: Candidal intertrigo Apply [...] in the morning. 16 g 02/07/2024 Active Saccharomyces boulardii 250 MG Oral [...] insulin ([facility]) Inject 36 Units under the skin [...] as of this encounter (statuses as of 04/11/2024) Active Problems Problem Noted Date Diagnosed Date [...] eye 09/28/2020 Coronary artery disease invo lving [place] coronary artery of [place] heart without angina pectoris 12/16/2019 Last Assessment [...] as of this encounter (statuses as of 04/11/2024) Resolved Problems Problem Noted Date Diagnosed Date [...] mgmt 02/19/2014 12/21/2016 Diabetes mellitus 01/05/2014 12/21/2016 [place] RESEARCH OTHER*[id number] 01/05/2014 12/21/2016 Axillary pain 11/03/2013 12/21/2016 Obesity, [...] cath 09/201008/26/2011 12/21/2016 FOLLOWING SURGERY, UNSPECIFI ED ([facility] BSO 08/25/2011) 08/26/2011 12/21/2016 ADVANCE [...] Medical Record [facility] V710 Clinical Trial*[id number] 12/22/2010 04/14/2011 S/P aortic valve replacement 12/01/2010 08/26/2011 S/P AORTIC VALVE REPLACEMENT - #25 pericardial Hernandez valve 11/01/2010 06/28/2018 Overview: Aortic valve replacement with #25 pericardial Hernandez valve, model 2800TFX, serial number [id number] (Dr. Walker) [facility] V710 Clinical Trial*[id number] 10/18/2010 11/21/2010 Type 2 diabetes mellitus wit [...] as of this encounter (statuses as of 04/11/2024) Immunizations Name Administration Dates Next Due COVID-19 mRNA, LNP-s, No Pre serve, 2-Dose Series (Moderna) 10/25/2021,02/16/2021,01/18/2021 HEP A - Hepatitis A (Adult > 18 yrs) 06/07/2018, 12/05/2017 Hepatitis B, 20+ yrs 06/07/2018,01/08/20 18,12/05/2017,06/15,10/27/2013,09/12/2013 Pneumococcal Conjugate Vacci ne, 20-valent (Usudzfu64) 06/22/2023 Pneumococcal Polysaccharide PPV23 (Pneumovax) 01/02/2008 Seasonal [...] Miscellaneous Notes * Telephone Encounter - Laya Craig OSA - 04/11/2024 12:25 PM EDT Per Request reschedule appt.. Called lmom to confirm if 8 at 10:00am is a good date and time. documented in this encounter Plan of Treatment Upcoming Encounters Date Type Department Care Team (Late st Contact Info) Description 04/14/2024 8:00 AM EDT Office [facility] [address] [facility] [place] [address] Cinthia Andrews PA-C [address] [place] [address] 04/25/2024 10:00 AM EDT [facility] [address] [place] [address] Jaycee Sorto RN [address] [place] [address] 06/03/2024 10:00 AM EDT Office Visit Gastroenterology, [facility] [address] [place] [address] Arina Knapp PA-C [address] [place] [address] 07/17/2024 9:30 AM EDT Office Visit Cardiology, [facility] [address] [place] [address] Roberto Carlos Muniz, DO [address] [place] [address] 08/12/2024 9:20 AM EST Office Visit Family Practice [facility] [address] [place] [address] Gregory Rausch MD [address] [place] [address] 11/03/2024 11:00 AM EST Office Visit Sleep Disorders Ctr [facility] [address] [place] [phone] Christina Birch, [address] [place] [address] 11/27/2024 9:40 AM EST Office Visit Nephrology, [facility] [address] [facility] [address] [place] [address] Fidelina Baumann MD [address] [facility] [place] [address] Scheduled Procedures Name Priority Associated Diagnoses Date/Ti [...] Additional history exists CKD PHOS USE SMARTSET 23125 06/18/202405/26, 06/16/2023, 06/15/2023, Additional history exists GFR 07/09/2024 01/08/2024, 09/25, 08/02/2023, Additional history exists HbA1c 08/01/2024 01/30/2024, 08/25, 07/31/2023, Additional history exists Diabetic Eye Exam 09/13/2024 09/13/2023, , 09/13/2023, Additional history exists B-12 09/18/2024 09/18/2023, 08/24, 2020, Additional history exists Albumin/Creatinine Ratio 01/07/2025 024, 03/09/2023, 12/22/2022, Additional history exists CKD HGB USE SMARTSET 41522 01/07/202501/07, 01/08/2024, 10/15/2023, Additional history exists TSH [...] this encounter Medical Devices Implanted Type Area Hand Therapist Device Identifier Shelf Expiration Date Model / Serial / Lot Cath Roselia Single Lumen - [id number] Implanted:Qty : 1 on 03/12/2008 at OR [facility] Left: Chest [facility] *DO NOT USE* 07/25/2012 21-4053-24 / / [id number] Sut Steel 6 M654g - [id number] Implanted:Qty : 1 on 11/01/2010 at OR [facility] N/A: Chest DO NOT USE M654G / / Sut Steel 6 M654g - [id number] Implanted:Qty : 1 on 11/01/2010 at OR [facility] N/A: Chest DO NOT USE M654G / / Valve Tarsha Aortic [id number] - [id number] Implanted:Qty : 1 on 11/01/2010 at OR [facility] N/A: Heart [employer] DANIEL 05/20/2012 2800TFX-25 / / [id number] Mesh Soft 33u02mw - [id number] Implanted:Qty : 1 on 10/10/2019 by Gigi Hendrickson [place] [facility] [place]/A: Abdomen CR BARD : DAVOL [id number] 05/21/2024 [id number] / / [id number] Lens 22.5 Sn60wf - [id number] - [id number] Implanted:Qty : 1 on 09/15/2020 by Renaldo Cook, Cece Acosta MD at OR [facility] Right: Eye IVA : SURGICAL [id number] 05/13/2025 SN60 WF.225 / [id number] / [id number] Lens 21.5 Sn60wf - [id number] - [id number] Implanted:Qty : 1 on 12/19/2023 by Ramsey Burnett DO at OR [facility] Left: Eye IVA : SURGICAL 12/03/2024 SN60WF.2 15 / [id number] / documented as of this encounter [...] statute hierarchy) Jovita Yamile Adult Child Health Calender Machine Operator Helper resentative (appointed verbally by patient or by statute hierarchy) [email or web address] Care Teams Airplane Gastank Liner Assembler Relationship Specialty Start Date End Date Gregory Rausch MD [address] [place] [address] PCP - General Family Medicine 02/12/20 documented as of this encounter
--- OUTSIDE RECORDS SUMMARY | 2024-06-05 14:43 | External Medical Summary | Summary of Care ---
Author Name Unknown Organization [facility] Address [address] [place] [address] Phone [phone] Care Team Providers Care Security Associate Name Role Phone Gregory Rausch MD Primary Care Provider [phone] Reason for Visit * Reason Onset Date Comments [facility]: Maintenance 04/12/2024 Encounter Details Date Type Department Care Team (Late st Contact Info) Description 04/12/2024 4:30 PM EDT Scheduled Telephone [facility], [facility] [address] [place] [address] [facility], Nurse [place] [id number] [place] [address] Allergies Active Allergy Reactions Criticality Noted Date Comments Adhesive Tape 07/02/2017 Can tolerate band-aids Glycerin Other (Please comment) 03/12/2008 Topical agents with glycein-burning & itching Lactose 12/09/2014 Dairy - gas Lisinopril Cough 01/21/2010 Monosodium Glutamate Edema Other 03/12/2008 Hands and feet Penicillins Rash 11/14/2007 documented as of this encounter (statuses as of 04/12/2024) Medications Medication Sig Dispensed Refills Start Date [...] (Glucose)Indications :DM type 2, not at goal ([place] [...] MEDICATIONS 90 Tablet 2 01/10/2024 Active Nystatin 396026 UNIT/GM External Powder (Nystop)Indications: Candidal intertrigo Apply [...] as of this encounter (statuses as of 04/12/2024) Active Problems Problem Noted Date Diagnosed Date [...] eye 09/28/2020 Coronary artery disease invo lving [place] coronary artery of [place] heart without angina pectoris 12/16/2019 Last Assessment [...] as of this encounter (statuses as of 04/12/2024) Resolved Problems Problem Noted Date Diagnosed Date [...] 12/21/2016 Diabetes mellitus 01/05/2014 12/21/2016 LEYVA RESEARCH OTHER*[id number] 01/05/2014 12/21/2016 Axillary pain 11/03/2013 12/21/2016 Obesity, [...] cath 09/201008/26/2011 12/21/2016 FOLLOWING SURGERY, UNSPECIFI ED ([facility] BSO 08/25/2011) 08/26/2011 12/21/2016 ADVANCE [...] Medical Record [facility] V710 Clinical Trial*[id number] 12/22/2010 04/14/2011 S/P aortic valve replacement 12/01/2010 08/26/2011 S/P AORTIC VALVE REPLACEMENT - #25 pericardial Mc valve 11/01/2010 06/28/2018 Overview: Aortic valve replacement with #25 pericardial Mc valve, model 2800TFX, serial number [id number] (Dr. Walker) [facility] V710 Clinical Trial*[id number] 10/18/2010 11/21/2010 Type 2 diabetes mellitus wit [...] as of this encounter (statuses as of 04/12/2024) Immunizations Name Administration Dates Next Due COVID-19 mRNA, LNP-s, No Pre serve, 2-Dose Series (Moderna) 10/25/2021,02/16/2021,01/18/2021 HEP A - Hepatitis A (Adult > 18 yrs) 06/07/2018, 12/05/2017 Hepatitis B, 20+ yrs 06/07/2018,01/08/20 18,12/05/2017,06/15,10/27/2013,09/12/2013 Pneumococcal Conjugate Vacci ne, 20-valent ([id number]) 06/22/2023 Pneumococcal Polysaccharide PPV23 (Pneumovax) 01/02/2008 Seasonal [...] encounter Miscellaneous Notes * Telephone Encounter - Cinthia Bob LPN - 04/12/2024 9:30 AM EDT Images from the original note were not included. [facility] Remote Patient Monitoring Able to contact patient: Trigger type: Abnormal reading(s): AMC (Advanced Monitored Caregiving): Scale: Baseline weight: Not set lbs Trigger weight: 158 lbs; weight increased lbs in 6.4 lbs in 2 days day(s) Trigger priority per AMC: high Patient takes diuretic medication: No Symptom review:None Diet Reviewed: Yes. Patient has had any foods high in sodium: No Fluid Intake Reviewed: No, Self-Management Plan Reviewed: Risk assignment recommendation: Moderate risk findings (check as applicable): [] Moderate trigger priority on AMC [] Confirmed tympanic equivalent temperature 100.4-101.9 F one hour post administration of antipyretic [] Weight gain of 2.1-4.9 lbs over 1-2 days [] Confirmed new sustained resting HR greater than 105 WITHOUT symptoms [x] Weight gain of greater than or equal [...] Additional risk selection justification: Spoke with pt she feels well. Was generally hunary yesterday ate a lot. Denies CP, SOB, abdominal distention, LE edema Overall risk and identified plan: Moderate risk: Next day follow up call scheduled documented in this encounter Plan of Treatment Upcoming Encounters Date Type Department Care Team (Late st Contact Info) Description 04/13/2024 12:15 PM EDT Scheduled Telephone [facility], [place] [address] [facility] [facility] [place] [address] [facility], Nurse [facility] [address] [place] [address] 04/14/2024 8:00 AM EDT Office [facility] [address] [facility] [place] [address] Cinthia Andrews PA-C [address] [facility] [place] [address] 04/25/2024 10:00 AM EDT [facility] Visit [facility], [facility] [address] [place] [address] Jaycee Sorto RN [address] [facility] [place] [address] 05/01/2024 9:30 AM EDT Home Visit [facility] [address] [place] [address] Angelica Navas, Community Health Waiter Waitress [address] [place] [address] 06/03/2024 10:00 AM EDT Office Visit Gastroenterology, [facility] [address] [facility] [place] [address] Arina Knapp PA-C [address] [facility] [place] [address] 07/17/2024 9:30 AM EDT Office Visit Cardiology, [facility] [address] [place] [address] Roberto Carlos Muniz DO [address] [facility] [place] [address] 08/12/2024 9:20 AM EST Office Visit Family Practice [facility] [address] [place] [address] Gregory Rausch MD [address] [place] [address] 11/03/2024 11:00 AM EST Office Visit Sleep Disorders Ctr [facility] [address] [facility] [place] [phone] Christina Birch, 132 [facility] [place] [address] 11/27/2024 9:40 AM EST Office Visit Nephrology, [facility] [address] [place] [address] Fidelina Baumann MD [address] [place] [address] Scheduled Procedures Name Priority Associated Diagnoses Date/Ti [...] Additional history exists CKD PHOS USE SMARTSET 01049 06/18/202405/26, 06/16/2023, 06/15/2023, Additional history exists GFR 07/09/2024 01/08/2024, 09/25, 08/02/2023, Additional history exists HbA1c 08/01/2024 01/30/2024, 08/25, 07/31/2023, Additional history exists Diabetic Eye Exam 09/13/2024 09/13/2023, , 09/13/2023, Additional history exists B-12 09/18/2024 09/18/2023, 08/24, 2020, Additional history exists Albumin/Creatinine Ratio 01/07/2025 024, 03/09/2023, 12/22/2022, Additional history exists CKD HGB USE SMARTSET 45817 01/07/202501/07, 01/08/2024, 10/15/2023, Additional history exists TSH [...] this encounter Medical Devices Implanted Type Area Gas Furnace Installer Device Identifier Shelf Expiration Date Model / Serial / Lot Cath Roselia Single Lumen - [id number] Implanted:Qty : 1 on 03/12/2008 at OR [facility] Left: Chest [facility] *DO NOT USE* 07/25/2012 21-4053- / / [id number] Sut Steel 6 M654g - [id number] Implanted:Qty : 1 on 11/01/2010 at OR [facility] N/A: Chest DO NOT USE M654G / / Sut Steel 6 M654g - [id number] Implanted:Qty : 1 on 11/01/2010 at OR [facility] N/A: Chest DO NOT USE M654G / / Valve Tarsha Aortic [id number] - [id number] Implanted:Qty : 1 on 11/01/2010 at OR [facility] N/A: Heart [employer] DANIEL 05/20/2012 2800TFX-25 / / [id number] Mesh Soft 63p60oi - [id number] Implanted:Qty : 1 on 10/10/2019 by Gigi Hendrickson MD at [place] [facility] [place] N/A: Abdomen CR BARD : DAVOL [id number] 05/21/2024 [id number] / / [id number] Lens 22.5 Sn60wf - [id number] - [id number] Implanted:Qty : 1 on 09/15/2020 by Renaldo Cook, Cece Acosta MD at OR [facility] Right: Eye IVA : SURGICAL [id number] 05/13/2025 SN60 WF.225 / [id number] / [id number] Lens 21.5 Sn60wf - [id number] - [id number] Implanted:Qty : 1 on 12/19/2023 by Ramsey Burnett DO at [facility] Left: Eye IVA : SURGICAL 12/03/2024 SN60WF.2 15 / [id number] / documented as of this encounter [...] statute hierarchy) Jovita Ovalle Adult Child Health Earth Science Technician resentative (appointed verbally by patient or by statute hierarchy) [email or web address] Hers Care Teams Security Associate Relationship Specialty Start Date End Date Gregory Rausch MD [address] [place] [address] PCP - General Family Medicine 02/12/20 documented as of this encounter
--- OUTSIDE RECORDS SUMMARY | 2024-06-05 14:43 | External Medical Summary | Summary of Care ---
Author Name Unknown Organization [facility] Address [address] [place] [address] Phone [phone] Care Team Providers Care Correctional Casework Specialist Name Role Phone Gregory Rausch MD Primary Care Provider [phone] Reason for Referral * Precert (Within 10 days (routine)) - Pending Review Specialty Diagnoses / Procedures Referred By Bruce wasserman Referred To Contact Radiology Diagnoses Memory changes Cognitive changes Procedures MRI BRAIN W WO Cinthia Phillip PA-C [address] [place] [address] Referral ID Status Reason Start Date Expiration Date V isits Requested Visits Authorized [id number] Pending Review 04/21/2024 999 999 Reason for Visit * Reason Comments NEW PATIENT Memory Problems * Evaluate & Treat - Unlimited Visits (Within 10 days (routine)) - Authorized Specialty Diagnoses / Procedures Referred By Bruce wasserman Referred To Contact Neurology Diagnoses Memory changes Gregory Rausch MD [address] [place] [address] Referral ID Status Reason Start Date Expiration Date Visits Requested Visits Authorized [id number] Authorized Specialty Services Required 04/01/2024 999 999 Encounter Details Date Type Department Care Team (Late st Contact Info) Description 04/14/2024 8:00 AM EDT Office Visit Neurology [facility] [address] [place] [address] Cinthia Andrews PA-C [address] [place] [address] Memory changes*; Cognitive changes Allergies Active Allergy [...] with insulin 4 times daily 400 Each 01/10/2024 Active BD Insulin Syringe 25G X [...] MEDICATIONS 90 Tablet 2 01/10/2024 Active Nystatin 310611 UNIT/GM External Powder (Nystop)Indications: Candidal intertrigo Apply [...] Coronary artery disease invo lving [place] coronary artery of [place] heart without angina pectoris 12/16/2019 Last Assessment [...] 12/21/2016 Diabetes mellitus 01/05/2014 12/21/2016 LEYVA RESEARCH OTHER*[id number] 01/05/2014 12/21/2016 Axillary pain 11/03/2013 12/21/2016 Obesity, [...] cath 09/201008/26/2011 12/21/2016 FOLLOWING [place], [place] ([facility] [...] into Electronic Medical Record [facility] V710 Clinical Trial*[id number] 12/22/2010 04/14/2011 S/P aortic valve replacement 12/01/2010 08/26/2011 S/P AORTIC VALVE REPLACEMENT - #25 pericardial Mc valve 11/01/2010 06/28/2018 Overview: Aortic valve replacement with #25 pericardial Mc valve, model 2800TFX, serial number [id number] (Dr. Walker) [facility] V710 Clinical Trial*[id number] 10/18/2010 11/21/2010 Type 2 diabetes mellitus wit [...] 06/07/2018,01/08/20 18,12/05/2017,06/15,10/27/2013,09/12/2013 Pneumococcal Conjugate Vacci ne, 20-valent ([id number]) 06/22/2023 Pneumococcal Polysaccharide PPV23 (Pneumovax) 01/02/2008 Seasonal [...] as of this encounter Nursing Notes * Maribel Sykes MED ASSIST - 04/14/2024 8:06 AM EDT Chief Complaint Patient presents with NEW PATIENT Memory Problems documented in this encounter Plan of Treatment Upcoming Encounters Date Type Department Care Team (Late st Contact Info) Description 04/25/2024 10:00 AM EDT [facility] [address] [address] Jaycee Sorto, RN [address] [address] 05/01/2024 9:30 AM EDT Home Visit Care Coordination and Integration [address] [place] [id number] Angelica Navas, Community Health Technical Service Rep [address] [place] [address] 05/09/2024 9:00 AM EDT Imaging Radiology [facility] [address] [facility] [place] [address] 06/03/2024 10:00 AM EDT Office Visit Gastroenterology, [facility] [address] [facility] [place] [address] Arina Knapp PA-C [address] [facility] [place] [address] 07/17/2024 9:30 AM EDT Office Visit Cardiology, [facility] [address] [facility] [place] [address] Roberto Carlos Muniz, DO [address] [place] [address] 08/12/2024 9:20 AM EST Office Visit Family Practice [facility] [address] [facility] [place] [address] Gregory Rausch MD [address] [facility] [place] [address] 10/30/2024 9:00 AM EST Office Visit Neurology [facility] 200 [facility] [place] [address] Sandy Juárez PA-C [address] [place] [address] 11/03/2024 11:00 AM EST Office Visit Sleep Disorders Ctr [facility] [address] [facility] [place] [id number] Christina Birch, [address] [facility] [place] [address] 11/27/2024 9:40 AM EST Office Visit Nephrology, [facility] [place] [address] Fidelina Baumann MD 200 [facility] [place] [address] Scheduled Orders Name Type Priority Associated Diagnoses Orde r Schedule MRI BRAIN W WO CONTRAST Medical Imaging Routine Memory changes Cognitive changes Expected: 04/21/2024, Expires: 05/15/2025 FOLIC ACID Lab Routine Memory changes Cognitive changes Ordered: 04/14/2024 25-HYDROXY VITAMIN D Lab Routine Memory changes Cognitive changes Expected: 04/14/2024, Expires: 04/14/2025 Scheduled Procedures Name Priority Associated Diagnoses Date/Ti [...] Additional history exists CKD PHOS USE SMARTSET 08136 06/18/202405/26, 06/16/2023, 06/15/2023, Additional history exists GFR 07/09/2024 01/08/2024, 09/25, 08/02/2023, Additional history exists HbA1c 08/01/2024 01/30/2024, 08/25, 07/31/2023, Additional history exists Diabetic Eye Exam 09/13/2024 09/13/2023, , 09/13/2023, Additional history exists B-12 09/18/2024 09/18/2023, 08/24, 2020, Additional history exists Albumin/Creatinine Ratio 01/07/2025 024, 03/09/2023, 12/22/2022, Additional history exists CKD HGB USE SMARTSET 29819 01/07/202501/07, 01/08/2024, 10/15/2023, Additional history exists TSH [...] this encounter Medical Devices Implanted Type Area Fire Sprinkler Service Technician Device Identifier Shelf Expiration Date Model / Serial / Lot Cath Roselia Single Lumen - [id number] Implanted:Qty : 1 on 03/12/2008 at OR [facility] Left: Chest [facility] *DO NOT USE* 07/25/2012 21-4053-24 / / [id number] Sut Steel 6 M654g - [id number] Implanted:Qty : 1 on 11/01/2010 at OR [facility] N/A: Chest DO NOT USE M654G / / Sut Steel 6 M654g - [id number] Implanted:Qty : 1 on 11/01/2010 at OR [facility] N/A: Chest DO NOT USE M654G / / Valve Tarsha Aortic [id number] - [id number] Implanted:Qty : 1 on 11/01/2010 at OR [facility] N/A: Heart [employer] D[employer]EL 05/20/2012 2800TFX-25 / / [id number] Mesh Soft [id number] - [id number] Implanted:Qty : 1 on 10/10/2019 by Gigi Hendrickson MD at OR [facility] N/A: Abdomen CR BARD : DAVOL [id number] 05/21/2024 [id number] / / [id number] Lens 22.5 Sn60wf - [id number] - [id number] Implanted:Qty : 1 on 09/15/2020 by Renaldo Cook, Cece Acosta MD at [facility] Right: Eye IVA : SURGICAL [id number] 05/13/2025 SN60 WF.225 / [id number] / [id number] Lens 21.5 Sn60wf - [id number] - [id number] Implanted:Qty : 1 on 12/19/2023 by Ramsey Burnett DO at OR [facility] Left: Eye IVA : SURGICAL 12/03/2024 SN60WF.2 15 / [id number] / documented as of this encounter Visit Diagnoses Diagnosis Memory changes- Primary Memory loss Cognitive changes Other signs and symptoms involving cognition documented in this encounter Advance Directives * [...] statute hierarchy) Jovita Ovalle Adult Child Health Wire Wrapper Machine Operator resentative (appointed verbally by patient or by statute hierarchy) [email or web address] Care Teams Correctional Casework Specialist Relationship Specialty Start Date End Date Gregory Rausch MD [address] [place] [address] PCP - General Family Medicine 02/12/20 documented as of this encounter
--- OUTSIDE RECORDS SUMMARY | 2024-06-05 14:44 | External Medical Summary | Summary of Care ---
Author Name Unknown Organization [facility] Address [address] [place] [address] Phone [phone] Care Team Providers Care Quality Assurance Supervisor Trim Name Role Phone Gregory Rausch MD Primary Care Provider [phone] Reason for Visit * Reason Onset Date Comments [facility]: Maintenance 04/11/2024 Encounter Details Date Type Department Care Team (Late st Contact Info) Description 04/11/2024 Telephone [facility], [facility] [address] [place] [address] [facility], Nurse [facility] [address] [place] [address] [facility]: Maintenance Allergies Active Allergy [...] (Glucose)Indications :DM type 2, not at goal ([facility] [...] MEDICATIONS 90 Tablet 2 01/10/2024 Active Nystatin 494192 UNIT/GM External Powder (Nystop)Indications: Candidal intertrigo Apply [...] eye 09/28/2020 Coronary artery disease invo lving [place] coronary artery [place] heart without angina pectoris 12/16/2019 Last Assessment [...] 12/21/2016 Diabetes mellitus 01/05/2014 12/21/2016 LEYVA RESEARCH OTHER*[id number] 01/05/2014 12/21/2016 Axillary pain 11/03/2013 12/21/2016 Obesity, [...] cath 09/201008/26/2011 12/21/2016 FOLLOWING SURGERY, UNSPECIFI ED ([facility] 08/25/2011) 08/26/2011 12/21/2016 ADVANCE DIRECTIVE INFORMATION 04/17/2011 12/21/2016 Overview: Yes, Patient instructed to provide copy of advance directive for provider to review and to be scanned into Electronic Medical Record ADVANCE DIRECTIVE INFORMATION 03/01/2011 12/21/2016 Overview: Yes, Patient instructed to provide copy of advance directive for provider to review and to be scanned into Electronic Medical Record [facility] V710 Clinical Trial*[id number] 12/22/2010 04/14/2011 S/P aortic valve replacement 12/01/2010 08/26/2011 S/P AORTIC VALVE REPLACEMENT - #25 pericardial Mc valve 11/01/2010 06/28/2018 Overview: Aortic valve replacement with #25 pericardial Mc valve, model 2800TFX, serial number [id number] (Dr. Walker) [facility] V710 Clinical Trial*[id number] 10/18/2010 11/21/2010 Type 2 diabetes mellitus wit [...] 06/07/2018,01/08/20 18,12/05/2017,06/15,10/27/2013,09/12/2013 Pneumococcal Conjugate Vacci ne, 20-valent ([id number]) 06/22/2023 Pneumococcal Polysaccharide PPV23 (Pneumovax) 01/02/2008 Seasonal [...] Telephone Encounter - Gisela Cartwright LPN - 04/11/2024 11:39 AM EDT Images from the original note were not included. [facility] Remote Patient Monitoring Unable to contact patient: Trigger type: Abnormal reading(s): Device(s) Triggered: AMC (Advanced Monitored Caregiving): Scale: Trigger weight: 155.4 lbs; weight increased 6.4 lbs in 5 day(s) Plan: [place] [facility] trigger of 6.4 lb weight gain in 5 days No answer left requesting a return call to [facility] at [phone] opt#3 Of note pt is not on a daily diuretic, no Dx of CHF noted in problem list documented in this encounter Plan of Treatment Upcoming Encounters Date Type Department Care Team (Late st Contact Info) Description 04/14/2024 8:00 AM EDT Office Visit [facility] [address] [facility] [place] [address] Cinthia Andrews PA-C [address] [facility] [place] [address] 04/17/2024 8:30 AM EDT Home Visit [facility] [address] [place] [address] Jaycee Sorto RN 132 [facility] [place] [address] 06/03/2024 10:00 AM EDT Office Visit Gastroenterology, [facility] [address] [place] [address] [address] Arina Knapp PA-C [address] [place] [address] 07/17/2024 9:30 AM EDT Office Visit Cardiology, [facility] [address] [place] [address] Roberto Carlos Muniz DO [address] [place] [address] 08/12/2024 9:20 AM EST Office Visit Family Practice [facility] [address] [place] [address] Gregory Rausch MD [address] [place] [address] 11/03/2024 11:00 AM EST Office Visit Sleep Disorders Ctr [facility] [address] [place] [phone] Christina Birch DO [address] [place] [address] 11/27/2024 9:40 AM EST Office Visit Nephrology, [facility] [address]ie [address] [place] [address] Fidelina Baumann MD [address] [place] [address] Scheduled Procedures Name Priority Associated Diagnoses Date/Ti [...] Additional history exists CKD PHOS USE SMARTSET 80724 06/18/202405/26, 06/16/2023, 06/15/2023, Additional history exists GFR 07/09/2024 01/08/2024, 09/25, 08/02/2023, Additional history exists HbA1c 08/01/2024 01/30/2024, 08/25, 07/31/2023, Additional history exists Diabetic Eye Exam 09/13/2024 09/13/2023, , 09/13/2023, Additional history exists B-12 09/18/2024 09/18/2023, 08/24, 2020, Additional history exists Albumin/Creatinine Ratio 01/07/2025 024, 03/09/2023, 12/22/2022, Additional history exists CKD HGB USE SMARTSET 31381 01/07/202501/07, 01/08/2024, 10/15/2023, Additional history exists TSH [...] this encounter Medical Devices Implanted Type Area Coal Trimmer Device Identifier Shelf Expiration Date Model / Serial / Lot Cath Roselia Single Lumen - [id number] Implanted:Qty : 1 on 03/12/2008 at OR [facility] Left: Chest [facility] *DO NOT USE* 07/25/2012 21-4053-24 / / [id number] Sut Steel 6 M654g - [id number] Implanted:Qty : 1 on 11/01/2010 at OR [facility] N/A: Chest DO NOT USE M654G / / Sut Steel 6 M654g - [id number] Implanted:Qty : 1 on 11/01/2010 at OR [facility] N/A: Chest DO NOT USE M654G / / Valve Tarsha Aortic [id number] - [id number] Implanted:Qty : 1 on 11/01/2010 at OR [facility] N/A: Heart [employer] 05/20/2012 2800TFX-25 / / [id number] Mesh Soft [id number] - [id number] Implanted:Qty : 1 on 10/10/2019 by Gigi Hendrickson MD at OR [facility] N/A: Abdomen CR BARD : DAVOL [id number] 05/21/2024 [id number] / / [id number] Lens 22.5 Sn60wf - [id number] - [id number] Implanted:Qty : 1 on 09/15/2020 by Renaldo Cook, Cece Acosta MD at OR [facility] Right: Eye IVA : SURGICAL [id number] 05/13/2025 SN60 WF.225 / [id number] / [id number] Lens 21.5 Sn60wf - [id number] - [id number] Implanted:Qty : 1 on 12/19/2023 by Ramsey Burnett DO at OR [facility] Left: Eye IVA : SURGICAL 12/03/2024 SN60WF.2 15 / [id number] / documented as of this encounter [...] statute hierarchy) Jovita Ovalle Adult Child Health Driver Trainee resentative (appointed verbally by patient or by statute hierarchy) Care Teams Quality Assurance Supervisor Trim Relationship Specialty Start Date End Date Gregory Rausch MD [address] [place] [address] PCP - General Family Medicine 02/12/20 documented as of this encounter
--- OUTSIDE RECORDS SUMMARY | 2024-06-05 14:44 | External Medical Summary | Summary of Care ---
Author Name Unknown Organization [facility] Address [address] [place] [address] Phone [phone] Care Team Providers Care Battery Container Tester Name Role Phone Gregory Rausch MD Primary Care Provider [phone] Reason for Visit * Reason Comments Diabetes Follow-Up Dosage Adjustment Via Phone (anticoag Cl inic) Encounter Details Date Type Department Care Team (Late st Contact Info) Description 04/07/2024 6:00 PM EDT Pharmacy Pharmacy, [facility] [address] [place] [address] Pharmacist1, [facility] [address] [place] [address] Type 2 diabetes mellitus with hemoglobin A1c goal of less than 8.0% ([facility])*; Type 2 diabetes [...] as of this encounter (statuses as of 04/07/2024) Medications Medication Sig Dispensed Refills Start Date End Date Status aspirin enteric coated 81 MG TBECIndications:Aort ic valve disorder Take 1 Tab by mouth daily. 90 Tab 11 09/30/2018 Active AZO Cranberry 250-30 MG Oral Tablet Take 1 Tablet by mouth in the morning. Active BD Glucose 5 GM Oral Tablet [...] Tablet by mouth in the morning. Active Diclofenac Sodium 0.1 % Ophthalmic Solution (Voltaren) Instill 1 Drop into the left eye in the morning and 1 Drop at noon and 1 Drop in the evening and 1 Drop before bedtime. 2.5 mL 1 01/03/2024 Active Probiotic (Lactobacillus) Oral Capsule Take 2 [...] OR OTHER MEDICATIONS 90 Tablet 01/10/2024 Active Nystatin 147128 UNIT/GM External Powder (Nystop)Indications: Candidal intertrigo Apply [...] the skin once a week. 9 mL 01/09/2024 Active Ammonium Lactate 12 % External Lotion (Lac-Hydrin) Apply to both feet once daily. 400 g 01/10/2024 Active Atorvastatin Calcium 40 MG Oral Tablet (Lipitor)Indications :Heart failure, systolic, due to idiopathic cardiomyopathy ([facility] [...] before bedtime. 90 Capsule 5 02/04/2024 Active Omnipod 5 G6 Intro (Gen 5) Kit Use as directed. Use to delivery insulin via insulin pump 02/04/2024 Active Fluticasone Propionate 50 MCG/ACT Nasal [...] units per day in Omnipod. 03/31/2024 Active documented as of this encounter (statuses as of 04/07/2024) Active Problems Problem Noted Date Diagnosed Date [...] eye 09/28/2020 Coronary artery disease invo lving douglas coronary artery of douglas heart without angina pectoris 12/16/2019 Last Assessment [...] as of this encounter (statuses as of 04/07/2024) Resolved Problems Problem Noted Date Diagnosed Date [...] 12/21/2016 Diabetes mellitus 01/05/2014 12/21/2016 LEYVA RESEARCH OTHER*[id number] 01/05/2014 12/21/2016 Axillary pain 11/03/2013 12/21/2016 Obesity, [...] 12/21/2016 FOLLOWING SURGERY, UNSPECIFI ED ([facility] 08/25/2011) 08/26/2011 12/21/2016 ADVANCE DIRECTIVE [...] [facility] V710 Clinical Trial*[id number] 12/22/2010 04/14/2011 S/P aortic valve replacement 12/01/2010 08/26/2011 S/P AORTIC VALVE REPLACEMENT - #25 pericardial Mc valve 11/01/2010 06/28/2018 Overview: Aortic valve replacement with #25 pericardial Mc valve, model 2800TFX, serial number [id number] (Dr. Walker) [facility] V710 Clinical Trial*[id number] 10/18/2010 11/21/2010 Type 2 diabetes mellitus wit [...] as of this encounter (statuses as of 04/07/2024) Immunizations Name Administration Dates Next Due COVID-19 mRNA, LNP-s, No Pre serve, 2-Dose Series (Moderna) 10/25/2021,02/16/2021,01/18/2021 HEP A - Hepatitis A (Adult > 18 yrs) 06/07/2018, 12/05/2017 Hepatitis B, 20+ yrs 06/07/2018,01/08/20 18,12/05/2017,06/15,10/27/2013,09/12/2013 Pneumococcal Conjugate Vacci ne, 20-valent (Lcdylvd66) 06/22/2023 Pneumococcal Polysaccharide PPV23 (Pneumovax) 01/02/2008 Seasonal [...] Answer Date Recorded PHQ Adult Total Score 19 12/25/2023 Hunger Vital Sign Answer Date Recorded Within the past 12 months, y ou worried that your food would run out before you got the money to buy more. Never true 01/22/20 24 Within the past 12 months, t he food you bought just didn't last and you didn't have money to get more. Never true 01/22/2024 Childcare Answer Date Recorded Do you feel overwhelmed with taking care of a child, family member or friend? No 01/22/2024 Does your family need help f inding childcare? (Household - for ages 0-17 years) Not on file 01/22/2024 Clothing Answer Date Recorded Have you been unable to get clothing when it was really needed? No 01/22/2024 Is your family able to get c lothes or diapers when needed? (Household - for ages 0-17 years) Not on file 01/22/2024 Personal Safety Answer Date Recorded Do you feel unsafe or have concerns for your saf ety? No 01/22/2024 Do you have concerns for you r family's safety? (Household - for ages 0-17 years) Not on file 01/22/2024 Utilities Answer Date Recorded Do you have trouble paying y our heating, water, or electric bill? No 01/22/2024 Is your family able to pay t he heat, water, or electric bill? (Household - for ages 0-17 years) Not on file 01/22/2024 Does your family have access to good internet? (Household - for ages 0-17 years) Not on file 01/22/2024 Employment Status Answer Date Recorded Are you unemployed or without regular income? No 01/22/2024 Does the household have a re gular source of income? (Household - for ages 0-17 years) Not on file 01/22/2024 Social Connections Answer Date Recorded How often do you feel lonely or isolated from those around you? Sometimes 01/22/2024 Financial Resource Strain Answer Date R ecorded Do you have any trouble payi ng for your medications, or do you think you might in the future? No 01/22/2024 Does your family have troubl e paying for medicine? (Household - for ages 0-17 years) Not on file 01/22/2024 Transportation Needs Answer Date Record ed READ ONLY Do you have troubl e getting a ride to medical visits or work? Never True 01/22/2024 Does your family have a hard time getting a ride to doctors visits? (Household - for ages 0-17 years) Not on file 01/22/2024 Has lack of transportation k ept you from medical appointments, meetings, work, or from getting things needed for daily living? Check all that apply. (Adult - for ages 18 years and over) Not on file 01/22/2024 Do you (or your family) have trouble finding or paying for a ride (transportation)? (Household - for ages 0-17 years) Not on file 01/22/2024 Housing Stability Answer Date Recorded Do you currently live in a s helter or have no steady place to sleep at night? No 01/22/2024 READ ONLY Do you think you a re at risk of becoming homeless? No 01/22/2024 Does your family worry about paying for your home or becoming homeless? (Household - for ages 0-17 years) Not on file 0 01/22/2024 Are you homeless or worried that you might be in the future? (Adult - for ages 18 years and over) Not on file Are you (or your family) corrie eless or worried that you might be in the future? (Household - for ages 0-17 years) Not on file Food Insecurity Answer Date Recorded Do you need food for this week? Yes 01/22/2024 Are you able to get enough f ood for your family? (Household - for ages 0-17 years) Not on file 01/22/2024 Does your family need food t his week? (Household - for ages 0-17 years) Not on file 01/22/2024 Do you always have enough fo od for your family? (Household - for ages 0-17 years) Not on file 01/22/2024 Education Answer Date Recorded What is the [...] Progress Notes * Neeraj Matthew RPh - 04/07/2024 12:25 PM EDT Patient Phone Numbers Spoke to Jovita at 12:50 PM and she has not found the slab worker for the Omnipod. Her daughters are working on getting a new one. She will call when she receives it so we can schedule her Omnipod training again. Neeraj Romero RPh, [facility] Clinical Pharmacist [facility]ication [facility] 04/07/2024, 12:50 PM documented in this encounter Plan of Treatment Upcoming Encounters Date Type Department Care Team (Late st Contact Info) Description 06/03/2024 10:00 AM EDT Office Visit Gastroenterology, [facility] [address] [place] [address] Arina Knapp PA-C [address] [place] [address] 07/17/2024 9:30 AM EDT Office Visit Cardiology, [facility] [address] [place] [address] Roberto Carlos Muniz, DO [address] [place] [address] 08/12/2024 9:20 AM EST Office Visit Family Practice [facility] [address] [place] [address] Gregory Rausch MD [address] [place] [address] 11/03/2024 11:00 AM EST [facility] [address] [place] [id number] Christina Birch, [address] [place] [address] 11/27/2024 9:40 AM EST Office Visit Nephrology, [facility] [address] [facility] [place] [address] Fidelina Baumann MD [address] [facility] [place] [address] Scheduled Procedures Name Priority Associated Diagnoses Date/Ti [...] Additional history exists CKD PHOS USE SMARTSET 27038 06/18/202405/26, 06/16/2023, 06/15/2023, Additional history exists GFR 07/09/2024 01/08/2024, 09/25, 08/02/2023, Additional history exists HbA1c 08/01/2024 01/30/2024, 08/25, 07/31/2023, Additional history exists Diabetic Eye Exam 09/13/2024 09/13/2023, , 09/13/2023, Additional history exists B-12 09/18/2024 09/18/2023, 08/24, 2020, Additional history exists Depression Monitoring 12/24/2024 12/25/2023 Albumin/Creatinine Ratio 01/07/2025 024, 03/09/2023, 12/22/2022, Additional history exists CKD HGB USE SMARTSET 50883 01/07/202501/07, 01/08/2024, 10/15/2023, Additional history exists TSH [...] this encounter Medical Devices Implanted Type Area Insights Manager Device Identifier Shelf Expiration Date Model / Serial / Lot Cath Roselia Single Lumen - [id number] Implanted:Qty : 1 on 03/12/2008 at OR [facility] Left: Chest [facility] *DO NOT USE* 07/25/2012 21-4053-24 / / [id number] Sut Steel 6 M654g - [id number] Implanted:Qty : 1 on 11/01/2010 at OR [facility] N/A: Chest DO NOT USE M654G / / Sut Steel 6 M654g - [id number] Implanted:Qty : 1 on 11/01/2010 at OR [facility] N/A: Chest DO NOT USE M654G / / Valve Tarsha Aortic [id number] - [id number] Implanted:Qty : 1 on 11/01/2010 at OR [facility] N/A: Heart [email or web address] DANIEL 05/20/2012 2800TFX-25 / / [id number] Mesh Soft [id number] - [id number] Implanted:Qty : 1 on 10/10/2019 by Gigi Hendricks[place] [facility] [place]A: Abdomen CR BARD : DAVOL [id number] 05/21/2024 [id number] / / [id number] Lens 22.5 Sn60wf - [id number] - [id number] Implanted:Qty : 1 on 09/15/2020 by Renaldo Cook, Cece Aocsta MD at OR [facility] Right: Eye IVA : SURGICAL [id number] 05/13/2025 SN60 WF.225 / [id number] / [id number] Lens 21.5 Sn60wf - [id number] - [id number] Implanted:Qty : 1 on 12/19/2023 by Ramsey Burnett DO at OR [facility] Left: Eye IVA : SURGICAL 12/03/2024 SN60WF.2 15 / [id number] / documented as of this encounter Visit Diagnoses Diagnosis Type 2 diabetes mellitus with hemoglobin A1c goal of less than 8.0% (HCC)- Primary Type 2 diabetes mellitus with stage 3a chronic kidney disease, with long-term current use of insulin (HCC) documented in this encounter Advance Directives * [...] patient or by statute hierarchy) Care Teams Battery Container Tester Relationship Specialty Start Date End Date Gregory Rausch MD [address] [place] [address] PCP - General Family Medicine 02/12/20 documented as of this encounter
--- OUTSIDE RECORDS SUMMARY | 2024-06-05 14:44 | External Medical Summary | Summary of Care ---
Author Name Unknown Organization [facility] Address [address] [place] [address] Phone [phone] Care Team Prov[address] Care Ct Technician Name Role Phone Gregory Rausch MD Primary Care Provider [phone] Reason for Visit * Reason Onset Date Comments [facility]: Maintenance 04/09/2024 Encounter Details Date Type Department Care Team (Late st Contact Info) Description 04/09/2024 Telephone [facility], [facility] [address] [facility] [place] [address] Coordinator, [facility] [address] [facility] [place] [id number] [facility]: Maintenance Allergies Active Allergy Reactions Criticality Noted Date Comments Adhesive Tape 07/02/2017 Can tolerate band-aids Glycerin Other (Please comment) 03/12/2008 Topical agents with glycein-burning & itching Lactose 12/09/2014 Dairy - gas Lisinopril Cough 01/21/2010 Monosodium Glutamate Edema Other 03/12/2008 Hands and feet Penicillins Rash 11/14/2007 documented as of this encounter (statuses as of 04/09/2024) Medications Medication Sig Dispensed Refills Start Date [...] type 2, not at goal ([facility]) 3 every 15 minutes until glucose is [...] with preserved ejection fraction (HFpEF) ([facility]) Take 1 Tablet by mouth in the morning and 1 Tablet before bedtime. 180 Tablet 3 01/22/2024 Active BD Pen Needle Short U/F 31G X 8 MMIndications:Type 2 diabetes mellitus with hemoglobin A1c goal of less than 7.0% ([facility]),Type 2 diabetes mellitus with stage 3a chronic kidney disease, with long-term current use of insulin ([facility]) Use with insulin 4 times daily 400 [...] MEDICATIONS 90 Tablet 2 01/10/2024 Active Nystatin 234657 UNIT/GM External Powder (Nystop)Indications: Candidal intertrigo Apply [...] Capsule before bedtime. 90 Capsule 02/04/2024 Active Omnipod 5 G6 Intro (Gen [...] goal of less than 7.0% ([facility]),Type 2 diabetes mellitus with stage 3a chronic kidney disease, with long-term current use of insulin ([facility]) Inject 36 Units under the skin in the morning. 6 mL 2 03/14/2024 Active Insulin Aspart 100 UNIT/ML Injection Solution (NovoLOG)Indications :Type 2 diabetes mellitus with hemoglobin A1c goal of less than 7.0% ([facility]) Use up to 50 units per day in Omnipod. 03/31/2024 Active documented as of this encounter (statuses as of 04/09/2024) Active Problems Problem Noted Date Diagnosed Date [...] as of this encounter (statuses as of 04/09/2024) Resolved Problems Problem Noted Date Diagnosed Date [...] 12/21/2016 Diabetes mellitus 01/05/2014 12/21/2016 LEYVA RESEARCH OTHER*[id number] 01/05/2014 12/21/2016 Axillary pain 11/03/2013 12/21/2016 Obesity, [...] cath 09/201008/26/2011 12/21/2016 FOLLOWING SURGERY, UNSPECIFI ED ([facility] 08/25/2011) 08/26/2011 12/21/2016 ADVANCE DIRECTIVE INFORMATION 04/17/2011 12/21/2016 Overview: Yes, Patient instructed to provide copy of advance directive for provider to review and to be scanned into Electronic Medical Record ADVANCE DIRECTIVE INFORMATION 03/01/2011 12/21/2016 Overview: Yes, Patient instructed to provide copy of advance directive for provider to review and to be scanned into Electronic Medical Record [facility] V710 Clinical Trial*[id number] 12/22/2010 04/14/2011 S/P aortic valve replacement 12/01/2010 08/26/2011 S/P AORTIC VALVE REPLACEMENT - #25 pericardial Mc valve 11/01/2010 06/28/2018 Overview: Aortic valve replacement with #25 pericardial Mc valve, model 2800TFX, serial number [id number] (Dr. Walker) [facility] V710 Clinical Trial*[id number] 10/18/2010 11/21/2010 Type 2 diabetes mellitus wit [...] as of this encounter (statuses as of 04/09/2024) Immunizations Name Administration Dates Next Due COVID-19 mRNA, LNP-s, No Pre serve, 2-Dose Series (Moderna) 10/25/2021,02/16/2021,01/18/2021 HEP A - Hepatitis A (Adult > 18 yrs) 06/07/2018, 12/05/2017 Hepatitis B, 20+ yrs 06/07/2018,01/08/20 18,12/05/2017,06/15,10/27/2013,09/12/2013 Pneumococcal Conjugate Vacci ne, 20-valent ([id number]) 06/22/2023 Pneumococcal Polysaccharide PPV23 (Pneumovax) 01/02/2008 Seasonal [...] encounter Miscellaneous Notes * Telephone Encounter - Ev Rahman RN - 04/09/2024 11:50 AM EDT Pt called back [facility], but I received when call received. Left VM for pt to call back [facility]. Ev Rahman RN [facility] Intake Triage Coordinator [phone] * Telephone Encounter - Cinthia Bob LPN - 04/09/2024 11:18 AM EDT Images from the original note were not included. [facility] Remote Patient Monitoring Unable to contact patient: Trigger type: Abnormal reading(s): Device(s) Triggered: AMC (Advanced Monitored Caregiving): Scale: Trigger weight: 154.4 lbs; weight increased 2.9 lbs in 1 day(s) Plan: LM requesting CB documented in this encounter Plan of Treatment Upcoming Encounters Date Type Department Care Team (Late st Contact Info) Description 04/11/2024 9:30 AM EDT Home Visit Care Coordination and Integration [address] [place] [address] Angelica [facility] Ergonomic Specialist [address] [place] [address] 04/14/2024 8:00 AM EDT Office Visit Neurology [facility] [address] [facility] [place] [address] Cinthia Andrews PA-C [address] [place] [address] 04/17/2024 8:30 AM EDT [facility] Visit [facility], [facility] [address] [place] [address] Jaycee Sorto RN [address] [facility] [place] [address] 06/03/2024 10:00 AM EDT Office Visit Gastroenterology, [facility] [address] [place] [address] Arina Knapp PA-C [address] [place] [address] [place] [address] 07/17/2024 9:30 AM EDT Office Visit Cardiology, [facility] [address] [place] [address] Roberto Carlos Muniz, DO [address] [place] [address] 08/12/2024 9:20 AM EST Office Visit Family Practice [facility] [address] [place] [address] Gregory Rausch MD [address] [place] [address] 11/03/2024 11:00 AM EST Office Visit Sleep Disorders Ctr [facility] [address] [place] [phone] Christina Birch, DO [address] [place] [address] 11/27/2024 9:40 AM EST Office Visit Nephrology, [facility] [address] [facility] [place] [address] Fidelina Baumann MD [address] [place] [address] Scheduled Procedures Name Priority Associated Diagnoses Date/Ti [...] Additional history exists CKD PHOS USE SMARTSET 00507 06/18/202405/26, 06/16/2023, 06/15/2023, Additional history exists GFR 07/09/2024 01/08/2024, 09/25, 08/02/2023, Additional history exists HbA1c 08/01/2024 01/30/2024, 08/25, 07/31/2023, Additional history exists Diabetic Eye Exam 09/13/2024 09/13/2023, , 09/13/2023, Additional history exists B-12 09/18/2024 09/18/2023, 08/24, 2020, Additional history exists Albumin/Creatinine Ratio 01/07/2025 024, 03/09/2023, 12/22/2022, Additional history exists CKD HGB USE SMARTSET 82563 01/07/202501/07, 01/08/2024, 10/15/2023, Additional history exists TSH [...] this encounter Medical Devices Implanted Type Area Staffing Operations Manager Device Identifier Shelf Expiration Date Model / Serial / Lot Cath Roselia Single Lumen - [id number] Implanted:Qty : 1 on 03/12/2008 at OR [facility] Left: Chest [facility] *DO NOT USE* 07/25/2012 21-4053-24 / / [id number] Sut Steel 6 M654g - [id number] Implanted:Qty : 1 on 11/01/2010 at OR [facility] N/A: Chest DO NOT USE M654G / / Sut Steel 6 M654g - [id number] Implanted:Qty : 1 on 11/01/2010 at OR [facility] N/A: Chest DO NOT USE M654G / / Valve Tarsha Aortic [id number] - [id number] Implanted:Qty : 1 on 11/01/2010 at OR [facility] N/A: Heart [email or web address] DANIEL 05/20/2012 2800TFX-25 / / [id number] Mesh Soft [id number] - [id number] Implanted:Qty : 1 on 10/10/2019 by Gigi Hendrickson MD [place] [facility] [place]: Abdomen CR BARD : DAVOL [id number] 05/21/2024 [id number] / / [id number] Lens 22.5 Sn60wf - [id number] - [id number] Implanted:Qty : 1 on 09/15/2020 by Cece Roland MD at OR [facility] Right: Eye IVA : SURGICAL [id number] 05/13/2025 SN60 WF.225 / [id number] / [id number] Lens 21.5 Sn60wf - [id number] - [id number] Implanted:Qty : 1 on 12/19/2023 by Ramsey Burnett DO at OR [facility] Left: Eye IVA : SURGICAL 12/03/2024 SN60WF.2 15 / [id number] / documented as of this encounter [...] statute hierarchy) Jovita Ovalle Adult Child Health Test Data Developer resentative (appointed verbally by patient or by statute hierarchy) Care Teams Ct Technician Relationship Specialty Start Date End Date Gregory Rausch MD [address] [place] [address] PCP - General Family Medicine 02/12/20 documented as of this encounter
--- OUTSIDE RECORDS SUMMARY | 2024-06-05 14:44 | External Medical Summary | Summary of Care ---
Author Name Unknown Organization [facility] Address [address] [place] [address] Phone [phone] Care Team Providers Care Soapstoner Name Role Phone Gregory Rausch MD Primary Care Provider [phone] Reason for Visit * Reason Onset Date Comments [facility]: Maintenance 04/09/2024 Encounter Details Date Type Department Care Team (Late st Contact Info) Description 04/09/2024 Telephone [facility], [facility] [address] [facility] [place] [address] Coordinator, [facility] [address] [facility] [address] [place] [id number] [facility]: Maintenance Allergies Active Allergy [...] (Glucose)Indications :DM type 2, not at goal ([facility]) 3 every 15 minutes until glucose [...] MEDICATIONS 90 Tablet 2 01/10/2024 Active Nystatin 909600 UNIT/GM External Powder (Nystop)Indications: Candidal intertrigo Apply [...] current use of insulin ([facility]) Inject 36 Units under the skin [...] eye 09/28/2020 Coronary artery disease invo lving [place] coronary artery of [place] heart without angina pectoris 12/16/2019 Last Assessment [...] 12/21/2016 Diabetes mellitus 01/05/2014 12/21/2016 LEYVA RESEARCH OTHER*[id number] 01/05/2014 12/21/2016 Axillary pain 11/03/2013 12/21/2016 Obesity, [...] cath 09/201008/26/2011 12/21/2016 FOLLOWING SURGERY, UNSPECIFI ED ([place] BSO 08/25/2011) 08/26/2011 12/21/2016 ADVANCE DIRECTIVE INFORMATION 04/17/2011 12/21/2016 Overview: Yes, Patient instructed to provide copy of advance directive for provider to review and to be scanned into Electronic Medical Record ADVANCE DIRECTIVE INFORMATION 03/01/2011 12/21/2016 Overview: Yes, Patient instructed to provide copy of advance directive for provider to review and to be scanned into Electronic Medical Record [facility] V710 Clinical Trial*[id number] 12/22/2010 04/14/2011 S/P aortic valve replacement 12/01/2010 08/26/2011 S/P AORTIC VALVE REPLACEMENT - #25 pericardial Mc valve 11/01/2010 06/28/2018 Overview: Aortic valve replacement with #25 pericardial Mc valve, model 2800TFX, serial number [id number] (Dr. Walker) [facility] V710 Clinical Trial*[id number] 10/18/2010 11/21/2010 Type 2 diabetes mellitus wit [...] 06/07/2018,01/08/20 18,12/05/2017,06/15,10/27/2013,09/12/2013 Pneumococcal Conjugate Vacci ne, 20-valent ([id number]) 06/22/2023 Pneumococcal Polysaccharide PPV23 (Pneumovax) 01/02/2008 Seasonal [...] Visit Care Coordination and Integration [address] [place] [address] Angelica Navas, Community Health Survey Methodologist [address] [place] [address] 04/14/2024 8:00 AM EDT Office Visit Neurology [facility] [address] [place] [address] Cinthia Andrews PA-C 200 [place] [address] 04/17/2024 8:30 AM EDT [facility] Visit [facility] [address] [place] [address] Jaycee Sorto RN 132 [facility] [place] [address] 06/03/2024 10:00 AM EDT Office Visit Gastroenterology, [facility] [address] [facility] [place] [address] Arina Knapp PABari 310 [facility] [place] [address] 07/17/2024 9:30 AM EDT Office Visit Cardiology, [facility] [address] [facility] [place] [address] Roberto Carlos Muniz DO [address] [place] [address] 08/12/2024 9:20 AM EST Office Visit Family Practice [facility] [address] [place] [address] Gregory Rausch MD [address] [place] [address] 11/03/2024 11:00 AM EST Office Visit Sleep Disorders Ctr [facility] [address] [place] [phone] Christina Birch, [address] [place] [address] 11/27/2024 9:40 AM EST Office Visit Nephrology, [facility] 200 [facility] [place] [address] Fidelina Baumann MD [address] [place] [address] Scheduled Procedures Name Priority Associated Diagnoses Date/Ti [...] Additional history exists CKD PHOS USE SMARTSET 66627 06/18/202405/26, 06/16/2023, 06/15/2023, Additional history exists GFR 07/09/2024 01/08/2024, 09/25, 08/02/2023, Additional history exists HbA1c 08/01/2024 01/30/2024, 08/25, 07/31/2023, Additional history exists Diabetic Eye Exam 09/13/2024 09/13/2023, , 09/13/2023, Additional history exists B-12 09/18/2024 09/18/2023, 08/24, 2020, Additional history exists Albumin/Creatinine Ratio 01/07/2025 024, 03/09/2023, 12/22/2022, Additional history exists CKD HGB USE SMARTSET 17892 01/07/202501/07, 01/08/2024, 10/15/2023, Additional history exists TSH [...] this encounter Medical Devices Implanted Type Area Forestry And Wildlife Manager Device Identifier Shelf Expiration Date Model / Serial / Lot Cath Roselia Single Lumen - [id number] Implanted:Qty : 1 on 03/12/2008 at OR [facility] Left: [facility] *DO NOT USE* 07/25/2012 21-4053-24 / / [id number] Sut Steel 6 M654g - [id number] Implanted:Qty : 1 on 11/01/2010 at OR [facility] N/A: Chest DO NOT USE M654G / / Sut Steel 6 M654g - [id number] Implanted:Qty : 1 on 11/01/2010 at OR [facility] N/A: Chest DO NOT USE M654G / / Valve Tarsha Aortic [id number] - [id number] Implanted:Qty : 1 on 11/01/2010 at OR [facility] N/A: Heart [employer]EL 05/20/2012 2800TFX-25 / / [id number] Mesh Soft [id number] - [id number] Implanted:Qty : 1 on 10/10/2019 by Gigi Hendrickson MD at OR [facility] N/A: Abdomen CR BARD : DAVOL [id number] 05/21/2024 [id number] / / [id number] Lens 22.5 Sn60wf - [id number] - [id number] Implanted:Qty : 1 on 09/15/2020 by Renaldo Cook, Cece Acosta MD at OR [facility] Right: Eye IVA : SURGICAL [id number] 05/13/2025 SN60 WF.225 / [id number] / [id number] Lens 21.5 Sn60wf - [id number] - [id number] Implanted:Qty : 1 on 12/19/2023 by Ramsey Burnett DO at OR [facility] Left: Eye IVA : SURGICAL 12/03/2024 SN60WF.2 15 / [id number] / documented as of this encounter [...] statute hierarchy) Jovita Ovalle Adult Child Health Residential Finish Carpenter resentative (appointed verbally by patient or by statute hierarchy) Care Teams Soapstoner Relationship Specialty Start Date End Date Gregory Rausch MD [address] [place] [address] PCP - General Family Medicine 02/12/20 documented as of this encounter
--- OUTSIDE RECORDS SUMMARY | 2024-06-05 14:44 | External Medical Summary | Summary of Care ---
Author Name Unknown Organization [facility] Address [address] [place] [address] Phone [phone] Care Team Providers Care Traffic Superintendent Name Role Phone Gregory Rausch MD Primary Care Provider [phone] [phone] Reason for Visit * Reason Onset Date Comments Appointment 04/09/2024 Encounter Details Date Type Department Care Team (Late st Contact Info) Description 04/09/2024 Telephone [facility], [facility] [address] [place] [address] Elsa Will, DANYELLE [address] [place], [place] [id number] Appointment Allergies Active Allergy Reactions Criticality Noted [...] MEDICATIONS 90 Tablet 2 01/10/2024 Active Nystatin 333205 UNIT/GM External Powder (Nystop)Indications: Candidal intertrigo Apply [...] eye 09/28/2020 Coronary artery disease invo lving [place] coronary artery of [place] heart without angina pectoris 12/16/2019 Last Assessment [...] mgmt 02/19/2014 12/21/2016 Diabetes mellitus 01/05/2014 12/21/2016 [place] RESEARCH OTHER*[id number] 01/05/2014 12/21/2016 Axillary pain 11/03/2013 12/21/2016 Obesity, [...] 12/21/2016 FOLLOWING SURGERY, UNSPECIFI ED ([facility] BSO 08/25/2011) 08/26/2011 12/21/2016 ADVANCE [...] Medical Record [facility] V710 Clinical Trial*[id number] 12/22/2010 04/14/2011 S/P aortic valve replacement 12/01/2010 08/26/2011 S/P AORTIC VALVE REPLACEMENT - #25 pericardial Mc valve 11/01/2010 06/28/2018 Overview: Aortic valve replacement with #25 pericardial Mc valve, model 2800TFX, serial number [id number] (Dr. Walker) [facility] V710 Clinical Trial*[id number] 10/18/2010 11/21/2010 Type 2 diabetes mellitus wit h hemoglobin A1c goal of less than 7.0% 09/02/2010 02/04/2024 Overview: ICD-10 update of inactive term Last Assessment & Plan: Pt having lows almost every night. Followed by endocrinology. Appears she no showed MTM and last endocrine appt. TT to Dr. Gracia for recommendation evening insulin. Dose humulin reduced. [...] 06/07/2018,01/08/20 18,12/05/2017,06/15,10/27/2013,09/12/2013 Pneumococcal Conjugate Vacci ne, 20-valent (Groehik91) 06/22/2023 Pneumococcal Polysaccharide PPV23 (Pneumovax) 01/02/2008 Seasonal [...] No 04/08/2024 Are you (or your family) corire eless or worried that you might be [...] encounter Miscellaneous Notes * Telephone Encounter - Elsa Will OSA - 04/09/2024 9:06 AM EDT TT Request from Chichi Casey - scheduled a home visit with Jaycee Sorto on April 17 at 8:30 am and CHW visit with Angelica Navas on April 11 at 11 am for AMC BP cuff. Spoke with patient and confirmed. documented in this encounter Plan of Treatment Upcoming Encounters Date Type Department Care Team (Late st Contact Info) Description 04/11/2024 9:30 AM EDT Home Visit Care Coordination and Integration [address] [place] [address] Angelica Navas, Community Health Glycerine Plant Operator [address] [place] [address] 04/14/2024 8:00 AM EDT Office Visit Neurology [facility] [address] [facility] [place] [address] Cinthia Andrews PA-C [address] [facility] [place] [address] 04/17/2024 8:30 AM EDT Home Visit isinger at [place], [facility] [address] [place] [address] Jaycee Sorto RN 132 [facility] [place] [address] 06/03/2024 10:00 AM EDT Office Visit Gastroenterology, [facility] [address] [place] [address] Arina Knapp PA-C [address] [place] [address] [place] [address] 07/17/2024 9:30 AM EDT Office Visit Cardiology, [facility] [address] [place] [address] Roberto Carlos Muniz, [address] [place] [address] 08/12/2024 9:20 AM EST Office Visit Family Practice [facility] [address] [place] [address] Gregory Rausch MD [address] [place] [address] 11/03/2024 11:00 AM EST Office Visit Sleep Disorders Ctr [facility] [place] [address] [place] [address] Birch Christina Crowder, [address] [place] [address] 11/27/2024 9:40 AM EST Office Visit Nephrology, [facility] [address] [facility] [place] [address] Fidelina Baumann MD [address] [place] [address] Scheduled Procedures Name Priority Associated Diagnoses Date/Ti [...] Additional history exists CKD PHOS USE SMARTSET 45888 06/18/202405/26, 06/16/2023, 06/15/2023, Additional history exists GFR 07/09/2024 01/08/2024, 09/25, 08/02/2023, Additional history exists HbA1c 08/01/2024 01/30/2024, 08/25, 07/31/2023, Additional history exists Diabetic Eye Exam 09/13/2024 09/13/2023, , 09/13/2023, Additional history exists B-12 09/18/2024 09/18/2023, 08/24, 2020, Additional history exists Albumin/Creatinine Ratio 01/07/2025 024, 03/09/2023, 12/22/2022, Additional history exists CKD HGB USE SMARTSET 06421 01/07/202501/07, 01/08/2024, 10/15/2023, Additional history exists TSH [...] this encounter Medical Devices Implanted Type Area Poly Operator Device Identifier Shelf Expiration Date Model / Serial / Lot Cath Roselia Single Lumen - [id number] Implanted:Qty : 1 on 03/12/2008 at OR [facility] Left: Chest [employer] *DO NOT USE* 07/25/2012 21-4053-24 / / [id number] Sut Steel 6 M654g - [id number] Implanted:Qty : 1 on 11/01/2010 at OR [facility] N/A: Chest DO NOT USE M654G / / Sut Steel 6 M654g - [id number] Implanted:Qty : 1 on 11/01/2010 at OR [facility] N/A: Chest DO NOT USE M654G / / Valve Tarsha Aortic [id number] - [id number] Implanted:Qty : 1 on 11/01/2010 at OR [facility] N/A: Heart [employer] 05/20/2012 2800TFX-25 / / [id number] Mesh Soft 52v52wy - [id number] Implanted:Qty : 1 on 10/10/2019 by Gigi Hendrickson MD at OR [facility] N/A: Abdomen CR BARD : DAVOL [id number] 05/21/2024 [id number] / / [id number] Lens 22.5 Sn60wf - [id number] - [id number] Implanted:Qty : 1 on 09/15/2020 by Renaldo Cook, Cece Acosta MD at OR [facility] Right: Eye IVA : SURGICAL [id number] 05/13/2025 SN60 WF.225 / [id number] / [id number] Lens 21.5 Sn60wf - [id number] - [id number] Implanted:Qty : 1 on 12/19/2023 by Ramsey Burnett DO at OR [facility] Left: Eye IVA : SURGICAL 12/03/2024 SN60WF.2 15 / [id number] [id number] / documented as of this encounter [...] statute hierarchy) Jovita Ovalle Adult Child Health Border Inspector resentative (appointed verbally by patient or by statute hierarchy) [email or web address] Care Teams Traffic Superintendent Relationship Specialty Start Date End Date Gregory Rausch MD [address] [place] [address] PCP - General Family Medicine 02/12/20 documented as of this encounter
--- OUTSIDE RECORDS SUMMARY | 2024-06-05 14:44 | External Medical Summary | Summary of Care ---
Author Name Unknown Organization [facility] Address [address] [place] [address] Phone [phone] Care Team Providers Care Television Installer Name Role Phone Gregory Rausch MD Primary Care Provider [phone] Reason for Visit * Reason Onset Date Comments [facility]: Maintenance 04/10/2024 Encounter Details Date Type Department Care Team (Late st Contact Info) Description 04/10/2024 Telephone [facility], [facility] [address] [place] [address] [facility], Nurse [facility] [address] [place] [address] [facility]: Maintenance Allergies Active Allergy Reactions Criticality Noted Date Comments Adhesive Tape 07/02/2017 Can tolerate band-aids Glycerin Other (Please comment) 03/12/2008 Topical agents with glycein-burning & itching Lactose 12/09/2014 Dairy - gas Lisinopril Cough 01/21/2010 Monosodium Glutamate Edema Other 03/12/2008 Hands and feet Penicillins Rash 11/14/2007 documented as of this encounter (statuses as of 04/10/2024) Medications Medication Sig Dispensed Refills Start Date [...] (Glucose)Indications :DM type 2, not at goal ([facility]) 3 every 15 minutes until glucose is [...] MEDICATIONS 90 Tablet 2 01/10/2024 Active Nystatin 792391 UNIT/GM External Powder (Nystop)Indications: Candidal intertrigo Apply [...] [facility]) Inject 36 Units under the skin in the morning. 6 mL 2 03/14/2024 Active Insulin Aspart 100 UNIT/ML Injection Solution (NovoLOG)Indications :Type 2 diabetes mellitus with hemoglobin A1c goal of less than 7.0% ([facility]) Use up to 50 units per day in Omnipod. 03/31/2024 Active documented as of this encounter (statuses as of 04/10/2024) Active Problems Problem Noted Date Diagnosed Date [...] eye 09/28/2020 Coronary artery disease invo lving [place] coronary artery of [place] heart without angina pectoris 12/16/2019 Last [...] as of this encounter (statuses as of 04/10/2024) Resolved Problems Problem Noted Date Diagnosed Date [...] 12/21/2016 Diabetes mellitus 01/05/2014 12/21/2016 LEYVA RESEARCH OTHER*[id number] 01/05/2014 12/21/2016 Axillary pain 11/03/2013 12/21/2016 Obesity, [...] cath 09/201008/26/2011 12/21/2016 FOLLOWING SURGERY, UNSPECIFI ED ([facility] BSO 08/25/2011) 08/26/2011 12/21/2016 ADVANCE [...] Medical Record [facility] V710 Clinical Trial*[id number] 12/22/2010 04/14/2011 S/P aortic valve replacement 12/01/2010 08/26/2011 S/P AORTIC VALVE REPLACEMENT - #25 pericardial Mc valve 11/01/2010 06/28/2018 Overview: Aortic valve replacement with #25 pericardial Mc valve, model 2800TFX, serial number [id number] (Dr. Walker) [facility] V710 Clinical Trial*[id number] 10/18/2010 11/21/2010 Type 2 diabetes mellitus wit [...] as of this encounter (statuses as of 04/10/2024) Immunizations Name Administration Dates Next Due COVID-19 mRNA, LNP-s, No Pre serve, 2-Dose Series (Moderna) 10/25/2021,02/16/2021,01/18/2021 HEP A - Hepatitis A (Adult > 18 yrs) 06/07/2018, 12/05/2017 Hepatitis B, 20+ yrs 06/07/2018,01/08/20 18,12/05/2017,06/15,10/27/2013,09/12/2013 Pneumococcal Conjugate Vacci ne, 20-valent (Dfndovr01) 06/22/2023 Pneumococcal Polysaccharide PPV23 (Pneumovax) 01/02/2008 Seasonal [...] Telephone Encounter - Ebony Scherer LPN - 04/10/2024 8:36 AM EDT Images from the original note were not included. [facility] Remote Patient Monitoring Able to contact patient: Trigger type: Abnormal reading(s): AMC (Advanced Monitored Caregiving): Scale: Trigger priority per AMC: 155.8 Symptom review: None Diet Reviewed: Yes. Patient has had any foods high in sodium: Yes, describe: eats Mom's meals had bingham soup, and cheesy taco in 1 day Fluid Intake Reviewed: No, Self-Management Plan Reviewed: Red Flags: low blood sugar, depression Risk assignment recommendation: Moderate risk findings [...] 90 WITH symptoms Additional risk selection justification: Jovita denies any SOB or increased edema states she feels good and has been eating more than normal. Jovita gets Mom's meals and had bingham soup as well as cheesy taco in 1 day. I suggested she call Mom's meals and see if they had any low /no sodium meals that she can have delivered patient states will do that today. Taking all meds as directed and hasn't missed any doses . Overall risk and identified plan: High risk: Next day follow up call scheduled Route to RNCM (Registered Nurse Referral And Information Aide) and Advance Practitioner documented in this encounter Plan of Treatment Upcoming Encounters Date Type Department Care Team (Late st Contact Info) Description 04/11/2024 9:30 AM EDT Home Visit Care Coordination and Integration [address] [place] [address] Angelica Navas, Community Health Money Room Supervisor [address] [place] [address] 04/14/2024 8:00 AM EDT Office Visit Neurology [facility] [address] [facility] [place] [address] Cinthia Andrews PA-C [address] [facility] [place] [address] 04/17/2024 8:30 AM EDT Home Visit ising at [facility] [address] [place] [address] Jaycee Sorto RN 132 [facility] [place] [address] 06/03/2024 10:00 AM EDT Office Visit Gastroenterology, [facility] [address] [place] [address] Arina Knapp PA-C [address] [place], [place] [address] [address] 07/17/2024 9:30 AM EDT Office Visit Cardiology, [facility] [address] [place] [address] Roberto Carlos Muniz DO [address] [place] [address] 08/12/2024 9:20 AM EST Office Visit Family Practice [facility] [address] [place] [address] Gregory Rausch MD [address] [place] [address] 11/03/2024 11:00 AM EST Office Visit Sleep Disorders Ctr [facility] [address] [place] [phone] Christina Birch, [address] [place] [address] 11/27/2024 9:40 AM EST Office Visit Nephrology, [facility] [address] [place] [address] Fidelina Baumann MD [address] [place] [address] Scheduled Procedures Name Priority Associated Diagnoses Date/Ti [...] Additional history exists CKD PHOS USE SMARTSET 56742 06/18/202405/26, 06/16/2023, 06/15/2023, Additional history exists GFR 07/09/2024 01/08/2024, 09/25, 08/02/2023, Additional history exists HbA1c 08/01/2024 01/30/2024, 08/25, 07/31/2023, Additional history exists Diabetic Eye Exam 09/13/2024 09/13/2023, , 09/13/2023, Additional history exists B-12 09/18/2024 09/18/2023, 08/24, 2020, Additional history exists Albumin/Creatinine Ratio 01/07/2025 024, 03/09/2023, 12/22/2022, Additional history exists CKD HGB USE SMARTSET 45449 01/07/202501/07, 01/08/2024, 10/15/2023, Additional history exists TSH [...] this encounter Medical Devices Implanted Type Area Non Destructive Evaluation Specialist Device Identifier Shelf Expiration Date Model / Serial / Lot Cath Roselia Single Lumen - [id number] Implanted:Qty : 1 on 03/12/2008 at OR [facility] Left: Chest [employer] *DO NOT USE* 07/25/2012 21-4053-24 / / [id number] Sut Steel 6 M654g - [id number] Implanted:Qty : 1 on 11/01/2010 at OR [facility] N/A: Chest DO NOT USE M654G / / Sut Steel 6 M654g - [id number] Implanted:Qty : 1 on 11/01/2010 at OR [facility] N/A: Chest DO NOT USE M654G / / Valve Tarsha Aortic [id number] - [id number] Implanted:Qty : 1 on 11/01/2010 at OR [facility] N/A: Heart [employer] 05/20/2012 2800TFX-25 / / [id number] Mesh Soft [id number] - [id number] Implanted:Qty : 1 on 10/10/2019 by Gigi Hendrickson MD at [place] [facility] N/A: Abdomen CR BARD : DAVOL [id number] 05/21/2024 [id number] / / [id number] Lens 22.5 Sn60wf - [id number] - [id number] Implanted:Qty : 1 on 09/15/2020 by Renaldo Cook, Cece Acosta MD at OR [facility] Right: Eye IVA : SURGICAL [id number] 05/13/2025 SN60 WF.225 / [id number] / [id number] Lens 21.5 Sn60wf - [id number] - [id number] Implanted:Qty : 1 on 12/19/2023 by Ramsey Burnett DO at OR [facility] Left: Eye IVA : SURGICAL 12/03/2024 SN60WF.2 15 / [id number] / documented as of this encounter [...] statute hierarchy) Jovita Ovalle Adult Child Health Child Care Associate resentative (appointed verbally by patient or by statute hierarchy) [email or web address] Care Teams Television Installer Relationship Specialty Start Date End Date Gregory Rausch MD [address] [place] [address] PCP - General Family Medicine 02/12/20 documented as of this encounter
--- OUTSIDE RECORDS SUMMARY | 2024-06-05 14:45 | External Medical Summary | Summary of Care ---
Author Name Unknown Organization [facility] Address [address] [place] [address] Phone [phone] Care Team Providers Care Infrastructure Developer Name Role Phone Gregory Rausch MD Primary Care Provider [phone] Reason for Visit * Reason Onset Date Comments [facility]: Maintenance 04/07/2024 Encounter Details Date Type Department Care Team (Late st Contact Info) Description 04/07/2024 Telephone [facility], [facility] [address] [place], [place] [id number] [facility], Nurse [facility] [address] [place] [address] [facility]: Maintenance Allergies Active Allergy [...] :DM type 2, not at goal ([facility]) 3 every 15 minutes until glucose is [...] MEDICATIONS 90 Tablet 2 01/10/2024 Active Nystatin 925060 UNIT/GM External Powder (Nystop)Indications: Candidal intertrigo Apply [...] ([facility]) Inject 36 Units under the skin in the morning. 6 mL 2 03/14/2024 Active Insulin Aspart 100 UNIT/ML Injection Solution (NovoLOG)Indications :Type 2 diabetes mellitus with hemoglobin A1c goal of less than 7.0% ([facility]) Use up to 50 units per day [...] eye 09/28/2020 Coronary artery disease invo lving eyak coronary artery of eyak heart without angina pectoris 12/16/2019 Last Assessment [...] 12/21/2016 Diabetes mellitus 01/05/2014 12/21/2016 LEYVA RESEARCH OTHER*[id number] 01/05/2014 12/21/2016 Axillary pain 11/03/2013 12/21/2016 Obesity, [...] cath 09/201008/26/2011 12/21/2016 FOLLOWING SURGERY, UNSPECIFI ED ([facility] BSO 08/25/2011) 08/26/2011 12/21/2016 ADVANCE DIRECTIVE INFORMATION 04/17/2011 12/21/2016 Overview: Yes, Patient instructed to provide copy of advance directive for provider to review and to be scanned into Electronic Medical Record ADVANCE DIRECTIVE INFORMATION 03/01/2011 12/21/2016 Overview: Yes, Patient instructed to provide copy of advance directive for provider to review and to be scanned into Electronic Medical Record [employer] V710 Clinical Trial*[id number] 12/22/2010 04/14/2011 S/P aortic valve replacement 12/01/2010 08/26/2011 S/P AORTIC VALVE REPLACEMENT - #25 pericardial Hernandez valve 11/01/2010 06/28/2018 Overview: Aortic valve replacement with #25 pericardial Hernandez valve, model 2800TFX, serial number [id number] (Dr. Wakler) [employer]ck V710 Clinical Trial*[id number] 10/18/2010 11/21/2010 Type 2 diabetes mellitus wit [...] 06/07/2018,01/08/20 18,12/05/2017,06/15,10/27/2013,09/12/2013 Pneumococcal Conjugate Vacci ne, 20-valent ([id number]) 06/22/2023 Pneumococcal Polysaccharide PPV23 (Pneumovax) 01/02/2008 Seasonal [...] encounter Miscellaneous Notes * Telephone Encounter - Naomie Rosas LPN - 04/07/2024 9:41 AM EDT Images from the original note were not included. [facility] Remote Patient Monitoring Able to contact patient: Trigger type: Abnormal reading(s): AMC (Advanced Monitored Caregiving): Scale: Baseline weight: 0 lbs Trigger weight: 152.4 lbs; weight increased 3.4 lbs in 1 day(s) Trigger priority per AMC: moderate Patient takes diuretic medication: No Symptom review: none Diet Reviewed: Yes. Patient has had any foods high in sodium: No Fluid Intake Reviewed: Yes. Patient is on a fluid restriction: Yes, restriction amount in milliliters or liters: 64 oz Adherent to restriction: Yes Self-Management Plan Reviewed: Red Flags: low blood sugars, SHAW feelings of depression Risk assignment recommendation: Moderate risk findings (check as applicable): [x] Moderate trigger priority on [facility] [] Confirmed tympanic equivalent temperature 100.4-101.9 F [...] as applicable): [] High trigger priority on [facility] [] Confirmed tympanic equivalent temperature greater than [...] WITH symptoms Additional risk selection justification: Spoke to patient denies any increased SOB or edema does not take diuretic last BM today will call with any issues Overall risk and identified plan: Moderate risk: Route to RNCM (Registered Nurse Ballroom Dancer) and Advance Practitioner documented in this encounter Plan of Treatment Upcoming Encounters Date Type Department Care Team (Late st Contact Info) Description 04/07/2024 6:00 PM EDT Pharmacy Pharmacy, [facility] [address] [facility] [place] [address] Pharmacist1, [facility] [address] [facility] [place] [address] 06/03/2024 10:00 AM EDT Office Visit Gastroenterology, [facility] [address] [place] [address] Arina Knapp PA-C [address] [place] [address] 07/17/2024 9:30 AM EDT Office Visit Cardiology, [facility] [address] [place] [address] Roberto Carlos Muniz, DO [address] [place] [address] 08/12/2024 9:20 AM EST Office Visit Family Practice [facility] [address] [place] [address] Gregory Rausch MD [address] [place] [address] 11/03/2024 11:00 AM EST Office Visit Sleep Disorders Ctr [facility] [address] [place] [phone] Christina Birch, [address] [place] [address] 11/27/2024 9:40 AM EST Office Visit Nephrology, [facility] [address] [facility] [place] [address] Fidelina Baumann MD [address] [facility] [place] [address] Scheduled Procedures Name Priority Associated Diagnoses Date/Ti [...] Additional history exists CKD PHOS USE SMARTSET 63668 06/18/202405/26, 06/16/2023, 06/15/2023, Additional history exists GFR 07/09/2024 01/08/2024, 09/25, 08/02/2023, Additional history exists HbA1c 08/01/2024 01/30/2024, 08/25, 07/31/2023, Additional history exists Diabetic Eye Exam 09/13/2024 09/13/2023, , 09/13/2023, Additional history exists B-12 09/18/2024 09/18/2023, 08/24, 2020, Additional history exists Depression Monitoring 12/24/2024 12/25/2023 Albumin/Creatinine Ratio 01/07/2025 024, 03/09/2023, 12/22/2022, Additional history exists CKD HGB USE SMARTSET 69412 01/07/202501/07, 01/08/2024, 10/15/2023, Additional history exists TSH [...] encounter Medical Devices Implanted Type Area Ground Defence Officer Device Identifier Shelf Expiration Date Model / Serial / Lot Cath Roselia Single Lumen - [id number] Implanted:Qty : 1 on 03/12/2008 at OR [facility] Left: Chest [facility] *DO NOT USE* 07/25/2012 21-4053-24 / / [id number] Sut Steel 6 M654g - [id number] Implanted:Qty : 1 on 11/01/2010 at OR [facility] N/A: Chest DO NOT USE M654G / / Sut Steel 6 M654g - [id number] Implanted:Qty : 1 on 11/01/2010 at OR [facility] N/A: Chest DO NOT USE M654G / / Valve Tarsha Aortic 2125pmw95pf - [id number] Implanted:Qty : 1 on 11/01/2010 at OR [facility] N/A: Heart Tyto DANIEL 05/20/2012 2800TFX-25 / / [id number] Mesh Soft 10o53ul - [id number] Implanted:Qty : 1 on 10/10/2019 by Gigi Hendrickson MD [place] [facility] [place]/A: Abdomen CR BARD : DAVOL [id number] 05/21/2024 [id number] / / [id number] Lens 22.5 Sn60wf - [id number] - [id number] Implanted:Qty : 1 on 09/15/2020 by Renaldo Cook, Cece Acosta MD at OR [facility] Right: Eye IVA : SURGICAL [id number] 05/13/2025 SN60 WF.225 / [id number] / [id number] Lens 21.5 Sn60wf - [id number] - [id number] Implanted:Qty : 1 on 12/19/2023 by Ramsey Burnett DO at OR [facility] Left: Eye IVA : SURGICAL 12/03/2024 SN60WF.2 15 / [id number] / documented as of this encounter [...] patient or by statute hierarchy) Care Teams Infrastructure Developer Relationship Specialty Start Date End Date Gregory Rausch MD [address] [facility] [place] [address] PCP - General Family Medicine 02/12/20 documented as of this encounter
--- OUTSIDE RECORDS SUMMARY | 2024-06-05 14:45 | External Medical Summary | Summary of Care ---
Author Name Unknown Organization [facility] Address [address] [place] [address] Phone [phone] Care Team Providers Care Restaurant Service Manager Name Role Phone Gregory Rausch MD Primary Care Provider [phone] Reason for Visit * Reason Comments Diabetes Follow-Up Dosage Adjustment In Person (Anticoag Cl inic) Encounter Details Date Type Department Care Team (Late st Contact Info) Description 03/31/2024 9:10 AM EDT Office Visit Pharmacy, [facility] [address] [place] [address] Pharmacist1, [facility] [address] [facility] [place] [address] Type 2 diabetes mellitus with hemoglobin A1c goal of less than 7.0% ([facility])* Allergies Active Allergy Reactions Criticality Noted Date Comments Adhesive Tape 07/02/2017 Can tolerate band-aids Glycerin Other (Please comment) 03/12/2008 Topical agents with glycein-burning & itching Lactose 12/09/2014 Dairy - gas Lisinopril Cough 01/21/2010 Monosodium Glutamate Edema Other 03/12/2008 Hands and feet Penicillins Rash 11/14/2007 documented as of this encounter (statuses as of 03/31/2024) Medications Medication Sig Dispensed Refills Start Date End Date Status aspirin enteric coated 81 MG TBECIndications:Aort ic valve disorder Take 1 Tab by mouth daily. 90 Tab 11 09/30/2018 Active AZO Cranberry 250-30 MG Oral Tablet Take 1 Tablet by mouth in the morning. Active BD Glucose 5 GM Oral Tablet Chewable (Glucose)Indications :DM type 2, not at goal ([facility]) 3 every 15 minutes until glucose is [...] preserved ejection fraction (HFpEF) ([facility]) Take 1 Tablet by mouth in the morning and 1 Tablet before bedtime. 180 Tablet 3 01/22/2024 Active BD Pen Needle Short U/F 31G X 8 MMIndications:Type 2 diabetes mellitus with hemoglobin A1c goal of less than 7.0% ([facility]),Type 2 diabetes mellitus with stage 3a chronic [...] MEDICATIONS 90 Tablet 2 01/10/2024 Active Nystatin 412996 UNIT/GM External Powder (Nystop)Indications: Candidal intertrigo Apply [...] as of this encounter (statuses as of 03/31/2024) Active Problems Problem Noted Date Diagnosed Date [...] as of this encounter (statuses as of 03/31/2024) Resolved Problems Problem Noted Date Diagnosed Date [...] 12/21/2016 Diabetes mellitus 01/05/2014 12/21/2016 LEYVA RESEARCH OTHER*[id number] 01/05/2014 12/21/2016 Axillary pain 11/03/2013 12/21/2016 Obesity, [...] cath 09/201008/26/2011 12/21/2016 FOLLOWING SURGERY, UNSPECIFI ED ([facility] BSO 08/25/2011) 08/26/2011 12/21/2016 ADVANCE DIRECTIVE INFORMATION 04/17/2011 12/21/2016 Overview: Yes, Patient instructed to provide copy of advance directive for provider to review and to be scanned into Electronic Medical Record ADVANCE DIRECTIVE INFORMATION 03/01/2011 12/21/2016 Overview: Yes, Patient instructed to provide copy of advance directive for provider to review and to be scanned into Electronic Medical Record [employer] V710 Clinical Trial*[id number] 12/22/2010 04/14/2011 S/P aortic valve replacement 12/01/2010 08/26/2011 S/P AORTIC VALVE REPLACEMENT - #25 pericardial Mc valve 11/01/2010 06/28/2018 Overview: Aortic valve replacement with #25 pericardial Mc valve, model 2800TFX, serial number [id number] (Dr. Walker) [facility] Miradore10 Clinical Trial*[id number] 10/18/2010 11/21/2010 Type 2 diabetes mellitus wit [...] as of this encounter (statuses as of 03/31/2024) Immunizations Name Administration Dates Next Due COVID-19 mRNA, LNP-s, No Pre serve, 2-Dose Series (Moderna) 10/25/2021,02/16/2021,01/18/2021 HEP A - Hepatitis A (Adult > 18 yrs) 06/07/2018, 12/05/2017 Hepatitis B, 20+ yrs 06/07/2018,01/08/20 18,12/05/2017,06/15,10/27/2013,09/12/2013 Pneumococcal Conjugate Vacci ne, 20-valent ([id number]) 06/22/2023 Pneumococcal Polysaccharide PPV23 (Pneumovax) 01/02/2008 Seasonal [...] Progress Notes * Neeraj Matthew RPh - 03/31/2024 8:50 AM EDT Medication Therapy Disease Management - CSII Start Training Jovita Rose is an 63 year old year old female being seen in the Medication Therapy Disease Management Clinic today for an insulin pump start training with Omnipod Insulin Pump. Patient brought [employer] G6 controller and Apple phone with G6 Toro (both connected to G6 CGM today and G6 CGM started. No Omnipod Controller found and unable to download Omnipod 5 Toro on her phone. (Omnipod 5 simulatorand other Omnipod apps available but not Omnipod 5.) Current Diabetes Medications: INC: Tresiba 36 units once daily Ozempic 2mg every Sunday Metformin 1000mg twice daily (On Hold) Novolog CF 2/50 over 200 (Flextouch pen) - give before every meal) Patient Active Problem List Diagnosis Dyslipidemia DANYELLE [...] coronary stent placement Schizoaffective disorder, bipolar type ([facility]) Medical marijuana use Coronary artery disease involving crow coronary artery of crow heart without angina pectoris Cystoid macular edema of right eye Type 2 diabetes mellitus with stage 3a chronic kidney disease, with long-term current use of insulin ([facility]) Type 2 diabetes mellitus with hemoglobin A1c goal of less than 8.0% ([facility]) Type 2 diabetes mellitus with diabetic peripheral angiopathy without gangrene ([facility]) Obesity, Class I, BMI 30.0-34.9 (see actual BMI) Thrombocytopenia (HCC) Hypertensive kidney disease with stage 3a chronic kidney disease ([facility]) Recurrent Clostridium difficile diarrhea Review of patient's allergies indicates: Allergen Reactions [...] 1 Tablet by mouth in the morning. BD Glucose 5 GM Oral Tablet Chewable (Glucose) 3 every 15 minutes until glucose is > 100 mg/dL for hypoglycemia E11.9 100 Tab 3 OneTouch Verio w/Device Kit Use up to 4 times a day E11.9 1 Kit 0 OneTouch Delica Lancets 33G TEST 4 TIMES [...] 1 Tablet by mouth in the morning. Diclofenac Sodium 0.1 % Ophthalmic Solution (Voltaren) Instill 1 Drop into the left eye in the morning and 1 Drop at noon and 1 Drop in the evening and 1 Drop before bedtime. 2.5 mL 1 Probiotic (Lactobacillus) Oral Capsule Take 2 Capsules by mouth in the morning. ZaaskTouch Verio In Vitro Strip (Glucose Blood) Use [...] OR OTHER MEDICATIONS 90 Tablet 2 Nystatin 317303 UNIT/GM External Powder (Nystop) Apply topically to [...] 1 Capsule before bedtime. 90 Capsule 5 Omnipod 5 G6 Intro (Gen 5) Kit Use as directed. Use to delivery insulin via insulin pump Fluticasone Propionate 50 MCG/ACT Nasal Suspension (Flonase) [...] skin in the morning. 6 mL 2 No current facility-administered medications for this visit. Objective: The ASCVD Risk score (Kennedy DK, et al., 2019) failed to calculate for the following reasons: The patient has a prior MD or stroke diagnosis Estimated body mass index is 30.3 kg/m as calculated from the following: Height as of 03/24/24: 1.499 m (4' 11"). Weight as of 03/24/24: 68 kg (150 lb). BP Readings from Last 3 Encounters: 03/24/24 112/74 03/17/24 132/72 03/04/24 160/90 No components found for: "[id number]" No results found for: "MICROALBUMIN" Lab Results Component Value Date/Time LDL CHOLESTEROL (CALCULATED) - [facility] 32 08/30/2018 04:00 PM LDL CHOLESTEROL (DIRECT MEASURE) - [facility] 52 04/09/2023 01:44 PM LDL CHOLESTEROL (DIRECT MEASURE) - [facility] 30 09/07/2020 10:58 AM LDL- [facility] ([facility]) 40 11/04/2013 05:25 AM Lab Results Component Value Date/Time ALT - [facility] 20 01/08/2024 12:22 PM ALT - [facility] 20 09/07/2020 10:58 AM ALT-OUTSIDE LAB 25 07/17/2017 12:00 AM Assessment & Plan: The following education was completed in clinic today: Reviewed pump basics, including: Pump supplies and how to reorder Where to find Customer's Bill of Rights and Responsibilities in User Guide Personal Auto Claims Adjuster (PDM): ID screen, pump buttons, battery and reservoir compartments, serial number Modes of operation (normal, temp basal, low battery/reservoir, suspend) Status screen Menu features [facility] help line and clinic phone number for [...] Diabetes Medications: (pump initiation settings scanned in EPIC) Tresiba 36 units once daily Ozempic 2mg every Sunday Metformin 1000mg twice daily (On Hold) Novolog CF 2/50 over 200 (Flextouch pen) - give before every meal) Omnipod pharmaceutical sales representative will start Omnipod 5 when candy butcher available. Statistics Tutor missing in box (wireless cupola charger was in slot where candy butcher should've been.) Email sent to rep stating we tried 3 times and were unsuccessful. Omnipod Insulin Pump (Controller Serial Number: need to enter when available Insulin: Novolog vial insulin Basal Rate: 0.55 units/hour Bolus: 4 units with breakfast, 4 units with lunch and 4 units with supper Bolus Calculator: on and using ICR: 18 ISF: 50 Blood Glucose Goal Limits: 70-180 Bolus Calculator: Target B Correct above: 180 Minimum B Active Insulin Time: 2 Dexcom Controller: [id number] Dexcom G6 Transmitter S/N: [id number] Follow up: 1 week to see if Omnipod candy butcher available 04/07/2024 Neeraj Romero RPh Clinical Pharmacist Medication Therapy Disease Management 03/31/2024, 9:32 AM documented in this encounter Plan of Treatment Upcoming Encounters Date Type Department Care Team (Late st Contact Info) Description 04/07/2024 6:00 PM EDT Pharmacy Pharmacy, [facility] [address] [facility] [place] [address] Pharmacist1, [facility] [address] [facility] [place] [address] 07/17/2024 9:30 AM EDT Office Visit Cardiology, [facility] [address] [place] [address] Roberto Carlos Muniz DO [address] [place] [address] 08/12/2024 9:20 AM EST Office Visit Family Practice [facility] [address] [place] [address] Gregory Rausch MD [address] [place] [address] 11/03/2024 11:00 AM EST Office Visit Sleep Disorders Ctr [facility] [place] [address] [place] [phone] Eyal Christina Lakesha, [address] [place] [address] 11/27/2024 9:40 AM EST Office Visit Nephrology, [facility] [address] [facility] [place] [address] Fidelina Baumann MD [address] [place] [address] Scheduled Procedures Name Priority Associated Diagnoses Date/Ti [...] Additional history exists CKD PHOS USE SMARTSET 85740 06/18/202405/26, 06/16/2023, 06/15/2023, Additional history exists GFR 07/09/2024 01/08/2024, 09/25, 08/02/2023, Additional history exists HbA1c 08/01/2024 01/30/2024, 08/25, 07/31/2023, Additional history exists Diabetic Eye Exam 09/13/2024 09/13/2023, , 09/13/2023, Additional history exists B-12 09/18/2024 09/18/2023, 08/24, 2020, Additional history exists Depression Monitoring 12/24/2024 12/25/2023 Albumin/Creatinine Ratio 01/07/2025 024, 03/09/2023, 12/22/2022, Additional history exists CKD HGB USE SMARTSET 32254 01/07/202501/07, 01/08/2024, 10/15/2023, Additional history exists TSH [...] this encounter Medical Devices Implanted Type Area Licensed Occupational Therapist Device Identifier Shelf Expiration Date Model / Serial / Lot Cath Roselia Single Lumen - [id number] Implanted:Qty : 1 on 03/12/2008 at OR [facility] Left: Chest [employer] *DO NOT USE* 07/25/2012 21-4053-24 / / [id number] Sut Steel 6 M654g - [id number] Implanted:Qty : 1 on 11/01/2010 at OR [facility] N/A: Chest DO NOT USE M654G / / Sut Steel 6 M654g - [id number] Implanted:Qty : 1 on 11/01/2010 at OR [facility] N/A: Chest DO NOT USE M654G / / Valve Tarsha Aortic [id number] - [id number] Implanted:Qty : 1 on 11/01/2010 at OR [facility] N/A: Heart [employer] DANIEL 05/20/2012 2800TFX-25 / / [id number] Mesh Soft 25p01lq - [id number] Implanted:Qty : 1 on 10/10/2019 by Gigi Hendrickson [place] [facility] [place]A: Abdomen CR BARD : DAVOL [id number] 05/21/2024 [id number] / / [id number] Lens 22.5 Sn60wf - [id number] - [id number] Implanted:Qty : 1 on 09/15/2020 by Renaldo Cook, Cece Acosta MD at [facility] Right: Eye IVA : SURGICAL [id number] 05/13/2025 SN60 WF.225 / [id number] / [id number] Lens 21.5 Sn60wf - [id number] - [id number] Implanted:Qty : 1 on 12/19/2023 by Ramsey Burnett DO at OR [facility] Left: Eye IVA : SURGICAL 12/03/2024 SN60WF.2 15 / [id number] / documented as of this encounter Visit Diagnoses Diagnosis Type 2 diabetes mellitus with hemoglobin A1c goal of less than 7.0% ([facility] Primary documented in this encounter Advance Directives * [...] or by statute hierarchy) Care Teams Restaurant Service Manager Relationship Specialty Start Date End Date Gregory Rausch MD [address] [place] [address] PCP - General Family Medicine 02/12/20 documented as of this encounter
--- OUTSIDE RECORDS SUMMARY | 2024-06-05 14:45 | External Medical Summary | Summary of Care ---
Author Name Unknown Organization [facility] Address [address] [place] [address] Phone [phone] Care Team Providers Care Tailing Machine Operator Name Role Phone Gregory Rausch MD Primary Care Provider [phone] Reason for Visit * Reason Onset Date Comments Medication Problem 04/01/2024 Encounter Details Date Type Department Care Team (Late st Contact Info) Description 04/01/2024 Telephone Family Practice [facility] [address] [place] [address] Gregory Rausch MD [address] [place] [address] Medication Problem Allergies Active Allergy Reactions Criticality Noted Date Comments Adhesive Tape 07/02/2017 Can tolerate band-aids Glycerin Other (Please comment) 03/12/2008 Topical agents with glycein-burning & itching Lactose 12/09/2014 Dairy - gas Lisinopril Cough 01/21/2010 Monosodium Glutamate Edema Other 03/12/2008 Hands and feet Penicillins Rash 11/14/2007 documented as of this encounter (statuses as of 04/01/2024) Medications Medication Sig Dispensed Refills Start Date End Date Status aspirin enteric coated 81 MG TBECIndications:Aort ic valve disorder Take 1 Tab by mouth daily. 90 Tab 11 09/30/2018 Active AZO Cranberry 250-30 MG Oral Tablet Take 1 Tablet by mouth in the morning. Active BD Glucose 5 GM Oral Tablet Chewable (Glucose)Indications :DM type 2, not at goal ([facility]) 3 every 15 minutes until [...] heart failure with preserved ejection fraction (HFpEF) ([facility]) Take 1 Tablet by mouth in the morning and 1 Tablet before bedtime. 180 Tablet 3 01/22/2024 Active BD Pen Needle Short U/F 31G X 8 MMIndications:Type 2 diabetes mellitus with hemoglobin A1c goal of less than 7.0% ([facility]),Type 2 diabetes mellitus with stage [...] MEDICATIONS 90 Tablet 2 01/10/2024 Active Nystatin 533890 UNIT/GM External Powder (Nystop)Indications: Candidal intertrigo Apply [...] disease, with long-term current use of insulin ([facility]) Inject 36 Units under the skin in the morning. 6 mL 2 03/14/2024 Active Insulin Aspart 100 UNIT/ML Injection Solution (NovoLOG)Indications :Type 2 diabetes mellitus with hemoglobin A1c goal of less than 7.0% ([facility]) Use up to 50 units per day in Omnipod. 03/31/2024 Active Toqjwchtce-Xnqshhk-M affeine 50-325-40 MG Oral Capsule (Fiorinal)Indication s:Acute intractable tension-type headache Take 1 Capsule by mouth every 4 hours as needed for Headache for up to 5 days. 30 Capsule 04/01/2024 Active documented as of this encounter (statuses as of 04/01/2024) Active Problems Problem Noted Date Diagnosed Date [...] eye 09/28/2020 Coronary artery disease invo lving [place] coronary artery of [place] heart without angina pectoris 12/16/2019 Last Assessment [...] as of this encounter (statuses as of 04/01/2024) Resolved Problems Problem Noted Date Diagnosed Date [...] 12/21/2016 Diabetes mellitus 01/05/2014 12/21/2016 LEYVA RESEARCH OTHER*[id number] 01/05/2014 12/21/2016 Axillary pain 11/03/2013 12/21/2016 Obesity, [...] 12/21/2016 FOLLOWING SURGERY, UNSPECIFI ED ([facility] 08/25/2011) 08/26/2011 12/21/2016 ADVANCE DIRECTIVE INFORMATION 04/17/2011 12/21/2016 Overview: Yes, Patient instructed to provide copy of advance directive for provider to review and to be scanned into Electronic Medical Record ADVANCE DIRECTIVE INFORMATION 03/01/2011 12/21/2016 Overview: Yes, Patient instructed to provide copy of advance directive for provider to review and to be scanned into Electronic Medical Record [place] V710 Clinical Trial*[id number] 12/22/2010 04/14/2011 S/P aortic valve replacement 12/01/2010 08/26/2011 S/P AORTIC VALVE REPLACEMENT - #25 pericardial Hernandez valve 11/01/2010 06/28/2018 Overview: Aortic valve replacement with #25 pericardial Hernandez valve, model 2800TFX, serial number [id number] (Dr. Walker) [facility] V710 Clinical Trial*[id number] 10/18/2010 11/21/2010 Type 2 diabetes mellitus wit [...] as of this encounter (statuses as of 04/01/2024) Immunizations Name Administration Dates Next Due COVID-19 mRNA, LNP-s, No Pre serve, 2-Dose Series (Moderna) 10/25/2021,02/16/2021,01/18/2021 HEP A - Hepatitis A (Adult > 18 yrs) 06/07/2018, 12/05/2017 Hepatitis B, 20+ yrs 06/07/2018,01/08/20 18,12/05/2017,06/15,10/27/2013,09/12/2013 Pneumococcal Conjugate Vacci ne, 20-valent (Lolhnjs71) 06/22/2023 Pneumococcal Polysaccharide PPV23 (Pneumovax) 01/02/2008 Seasonal [...] Miscellaneous Notes * Telephone Encounter - Jose Briggs RN - 04/01/2024 1:38 PM EDT Received fax from [facility] stating that Nqoznzaxrt-Kgozzhw-Pzgrsno tablets are on back order and asking if the the prescription can be changed to capsules? Medication order pended for review and signature if agree. Did you pend patient's preferred pharmacy and medication before forwarding?yes Pharmacy: [id number] [place] Pending Prescriptions: Disp Refills Jbgnsceqqj-Wbqvver-Lsgoxosj 50-325-40 MG *30 Cap*0 Sig: Take 1 Capsule by mouth every 4 hours as needed for Headache for up to 5 days. Last Visit: 03/17/2024 (in office), 09/12/2023 (telemedicine) Next Visit: 08/12/2024 If no future appointments scheduled, and last appointment is greater than a year ago, please schedule patient for a follow-up appointment Last date the medication was ordered: 03/17/2024 - medication on back order - pharmacy requesting capsules Is this request for a controlled substance?No [...] Description 04/07/2024 6:00 PM EDT Pharmacy Pharmacy, [facility] [address] [place] [address] Pharmacist1, [facility] [address] [place] [address] 07/17/2024 9:30 AM EDT Office Visit Cardiology, [facility] [address] [place] [address] Roberto Carlos Muniz, DO [address] [place] [address] 08/12/2024 9:20 AM EST Office Visit Family Practice [facility] [address] [place] [address] Gregory Rausch MD [address] [place] [address] 11/03/2024 11:00 AM EST Office Visit Sleep Disorders [facility] [address] [place] [phone] Christina Birch, [address] [place] [address] 11/27/2024 9:40 AM EST Office Visit Nephrology, [facility] [address] [place] [address] Fidelina Baumann MD [address] [place] [address] Scheduled Procedures Name Priority Associated Diagnoses Date/Ti [...] Additional history exists CKD PHOS USE SMARTSET 52935 06/18/202405/26, 06/16/2023, 06/15/2023, Additional history exists GFR 07/09/2024 01/08/2024, 09/25, 08/02/2023, Additional history exists HbA1c 08/01/2024 01/30/2024, 08/25, 07/31/2023, Additional history exists Diabetic Eye Exam 09/13/2024 09/13/2023, , 09/13/2023, Additional history exists B-12 09/18/2024 09/18/2023, 08/24, 2020, Additional history exists Depression Monitoring 12/24/2024 12/25/2023 Albumin/Creatinine Ratio 01/07/2025 024, 03/09/2023, 12/22/2022, Additional history exists CKD HGB USE SMARTSET 17273 01/07/202501/07, 01/08/2024, 10/15/2023, Additional history exists TSH [...] this encounter Medical Devices Implanted Type [employer] Device Identifier Shelf Expiration Date Model / Serial / Lot Cath Roselia Single Lumen - [id number] Implanted:Qty : 1 on 03/12/2008 at OR [facility] Left: Chest [facility] *DO NOT USE* 07/25/2012 21-4053-24 / / [id number] Sut Steel 6 M654g - [id number] Implanted:Qty : 1 on 11/01/2010 at OR [facility] N/A: Chest DO NOT USE M654G / / Sut Steel 6 M654g - [id number] Implanted:Qty : 1 on 11/01/2010 at OR [facility] N/A: Chest DO NOT USE M654G / / Valve Tarsha Aortic [id number] - [id number] Implanted:Qty : 1 on 11/01/2010 at OR [facility] N/A: Heart Duroline DANIEL 05/20/2012 2800TFX-25 / / [id number] Mesh Soft 88f70ek - [id number] Implanted:Qty : 1 on 10/10/2019 by Gigi Hendrickson MD at OR [facility] N/A: Abdomen CR BARD : DAVOL [id number] 05/21/2024 [id number] / / [id number] Lens 22.5 Sn60wf - [id number] - [id number] Implanted:Qty : 1 on 09/15/2020 by Renaldo Cook, Cece Acosta MD at OR [facility] Right: Eye IVA : SURGICAL [id number] 05/13/2025 SN60 WF.225 / [id number] / [id number] Lens 21.5 Sn60wf - [id number] - [id number] Implanted:Qty : 1 on 12/19/2023 by Ramsey Burnett DO at OR [facility] Left: Eye IVA : SURGICAL 12/03/2024 SN60WF.2 15 / [id number] / documented as of this encounter Visit Diagnoses Diagnosis Acute intractable tension-type headache- Primary documented in this encounter Advance Directives [...] patient or by statute hierarchy) Care Teams Tailing Machine Operator Relationship Specialty Start Date End Date Gregory Rausch MD [address] [place] [address] PCP - General Family Medicine 02/12/20 documented as of this encounter
--- OUTSIDE RECORDS SUMMARY | 2024-06-05 14:45 | External Medical Summary | Summary of Care ---
Author Name Unknown Organization [facility] Address [address] [place] [address] Phone [phone] Care Team Providers Care Director Loss Prevention Name Role Phone Gregory Rausch MD Primary Care Provider [phone] Reason for Visit * Reason Comments Diabetes Follow-Up Dosage Adjustment In Person (Anticoag Cl inic) Encounter Details Date Type Department Care Team (Late st Contact Info) Description 03/31/2024 9:10 AM EDT Office Visit Pharmacy, [facility] [address] [place] [address] Pharmacist1, [facility] [address] [facility] [place] [address] Type 2 diabetes mellitus with hemoglobin A1c goal of less than 7.0% ([facility])* Allergies Active Allergy Reactions Criticality [...] (Glucose)Indications :DM type 2, not at goal ([facility]) 3 every 15 minutes until [...] MEDICATIONS 90 Tablet 2 01/10/2024 Active Nystatin 832671 UNIT/GM External Powder (Nystop)Indications: Candidal intertrigo Apply [...] 12/21/2016 Diabetes mellitus 01/05/2014 12/21/2016 LEYVA RESEARCH OTHER*[id number] 01/05/2014 12/21/2016 Axillary pain 11/03/2013 12/21/2016 Obesity, [...] to be scanned into Electronic Medical Record [facility] V710 Clinical Trial*[id number] 12/22/2010 04/14/2011 S/P aortic valve replacement 12/01/2010 08/26/2011 S/P AORTIC VALVE REPLACEMENT - #25 pericardial Mc valve 11/01/2010 06/28/2018 Overview: Aortic valve replacement with #25 pericardial Mc valve, model 2800TFX, serial number [id number] (Dr. Walker) [facility] FindMySong10 Clinical Trial*[id number] 10/18/2010 11/21/2010 Type 2 diabetes mellitus wit [...] 06/07/2018,01/08/20 18,12/05/2017,06/15,10/27/2013,09/12/2013 Pneumococcal Conjugate Vacci ne, 20-valent (Vhlifod18) 06/22/2023 Pneumococcal Polysaccharide PPV23 (Pneumovax) 01/02/2008 Seasonal [...] training with Omnipod Insulin Pump. Patient brought weartolook G6 controller and Apple phone with G6 [...] coronary stent placement Schizoaffective disorder, bipolar type ([facility]) Medical marijuana use Coronary artery disease involving galena coronary artery of galena heart without angina pectoris Cystoid macular edema of right eye Type 2 diabetes mellitus with stage 3a chronic kidney disease, with long-term current use of insulin ([facility]) Type 2 diabetes mellitus with hemoglobin A1c goal of less than 8.0% ([facility]) Type 2 diabetes mellitus with diabetic peripheral angiopathy without gangrene ([facility]) Obesity, Class I, BMI 30.0-34.9 (see actual BMI) Thrombocytopenia (HCC) Hypertensive kidney disease with stage 3a chronic kidney disease ([facility]) Recurrent Clostridium difficile diarrhea Review of patient's [...] 2 Capsules by mouth in the morning. zeenworldTouch Verio In Vitro Strip (Glucose Blood) Use [...] OR OTHER MEDICATIONS 90 Tablet 2 Nystatin 262559 UNIT/GM External Powder (Nystop) Apply topically to [...] following reasons: The patient has a prior KS or stroke diagnosis Estimated body mass index is 30.3 kg/m as calculated from the following: Height as of 03/24/24: 1.499 m (4' 11"). Weight as of 03/24/24: 68 kg (150 lb). BP Readings from Last 3 Encounters: 03/24/24 112/74 03/17/24 132/72 03/04/24 160/90 No components found for: "[id number]" No results found for: "MICROALBUMIN" Lab Results [...] Rights and Responsibilities in User Guide Personal Hotel Houseman (PDM): ID screen, pump buttons, battery and reservoir compartments, serial number Modes of operation (normal, temp basal, low battery/reservoir, suspend) Status screen Menu features [employer] help line and clinic phone number for [...] (Flextouch pen) - give before every meal) Will start Omnipod 5 when speeder hand available. Backend Tester missing in box (wireless gyroscope repairer was in slotwhere speeder hand should've been.) Omnipod Insulin Pump (Controller Serial Number: need to enter when available Insulin: Novolog vial insulin Basal Rate: 0.55 units/hour Bolus: 4 units with breakfast, 4 units with lunch and 4 units with supper Bolus Calculator: on and using ICR: 18 ISF: 50 Blood Glucose Goal Limits: 70-180 Bolus Calculator: Target B Correct above: 180 Minimum B Active Insulin Time: 2 Dexcom Controller: [id number] Dexcom G6 Transmitter S/N: [id number] Follow up: 1 week to see if Omnipod speeder hand available 04/07/2024 Neeraj Romero RPh Clinical Pharmacist Medication Therapy Disease Management 03/31/2024, 9:32 AM documented in this encounter Plan of Treatment Upcoming Encounters Date Type Department Care Team (Late st Contact Info) Description 04/07/2024 6:00 PM EDT Pharmacy Pharmacy, [facility] [address] [facility] [place] [address] Pharmacist1, [facility] [address] [place] [address] 07/17/2024 9:30 AM EDT Office Visit Cardiology, [facility] [address] [place] [address] Roberto Carlos Muniz DO [address] [place] [address] 08/12/2024 9:20 AM EST Office Visit Family Practice [facility] [address] [place] [address] Gregory Rausch MD [address] [place] [address] 11/03/2024 11:00 AM EST Office Visit [facility] [address] [place] [phone] Birch Christina CrowderDO [address] [place] [address] 11/27/2024 9:40 AM EST Office Visit Nephrology, [facility] [address] [place] [address] Fidelina Baumann MD [address] [place] [address] Scheduled Procedures Name Priority Associated Diagnoses Date/Ti [...] Additional history exists CKD PHOS USE SMARTSET 79941 06/18/202405/26, 06/16/2023, 06/15/2023, Additional history exists GFR 07/09/2024 01/08/2024, 09/25, 08/02/2023, Additional history exists HbA1c 08/01/2024 01/30/2024, 08/25, 07/31/2023, Additional history exists Diabetic Eye Exam 09/13/2024 09/13/2023, , 09/13/2023, Additional history exists B-12 09/18/2024 09/18/2023, 08/24, 2020, Additional history exists Depression Monitoring 12/24/2024 12/25/2023 Albumin/Creatinine Ratio 01/07/2025 024, 03/09/2023, 12/22/2022, Additional history exists CKD HGB USE SMARTSET 97912 01/07/202501/07, 01/08/2024, 10/15/2023, Additional history exists TSH [...] this encounter Medical Devices Implanted Type Area [employer] Officer Device Identifier Shelf Expiration Date Model / Serial / Lot Cath Roselia Single Lumen - [id number] Implanted:Qty : 1 on 03/12/2008 at OR [facility] Left: Chest [employer] *DO NOT USE* 07/25/2012 21-4053-24 / / [id number] Sut Steel 6 M654g - [id number] Implanted:Qty : 1 on 11/01/2010 at OR [facility] N/A: Chest DO NOT USE M654G / / Sut Steel 6 M654g - [id number] Implanted:Qty : 1 on 11/01/2010 at OR [facility] N/A: Chest DO NOT USE M654G / / Valve Tarsha Aortic [id number] - [id number] Implanted:Qty : 1 on 11/01/2010 at OR [facility] N/A: Heart [employer] DANIEL 05/20/2012 2800TFX-25 / / [id number] Mesh Soft 25m49tn - [id number] Implanted:Qty : 1 on 10/10/2019 by Gigi Hendrickson MD at OR [facility] N/A: Abdomen CR BARD : DAVOL [id number] 05/21/2024 [id number] / / [id number] Lens 22.5 Sn60wf - [id number] - [id number] Implanted:Qty : 1 on 09/15/2020 by Renaldo Cook, Cece Acsota MD at [facility] Right: Eye IVA : SURGICAL [id number] 05/13/2025 SN60 WF.225 / [id number] / [id number] Lens 21.5 Sn60wf - [id number] - [id number] Implanted:Qty : 1 on 12/19/2023 by Ramsey Burnett DO at OR [facility] Left: Eye IVA : SURGICAL 12/03/2024 SN60WF.2 15 / [id number] / documented as of this encounter Visit Diagnoses Diagnosis Type 2 diabetes mellitus with hemoglobin A1c goal of less than 7.0% ([facility])- Primary documented in this encounter Advance Directives [...] or by statute hierarchy) Care Teams Director Loss Prevention Relationship Specialty Start Date End Date Gregory Rausch MD [address] [place] [address] PCP - General Family Medicine 02/12/20 documented as of this encounter
--- OUTSIDE RECORDS SUMMARY | 2024-06-05 14:45 | External Medical Summary | Summary of Care ---
Author Name Unknown Organization [facility] Address [address] [place] [address] Phone [phone] Care Team Providers Care Armed Security Guard Name Role Phone Gregory Rausch MD Primary Care Provider [phone] Reason for Visit * Reason Onset Date Comments FYI 03/26/2024 Encounter Details Date Type Department Care Team (Late st Contact Info) Description 03/26/2024 Telephone Family Practice [facility] [address] [place] [address] Gregory Rausch MD [address] [place] [address] FY Allergies Active Allergy Reactions Criticality Noted Date Comments Adhesive Tape 07/02/2017 Can tolerate band-aids Glycerin Other (Please comment) 03/12/2008 Topical agents with glycein-burning & itching Lactose 12/09/2014 Dairy - gas Lisinopril Cough 01/21/2010 Monosodium Glutamate Edema Other 03/12/2008 Hands and feet Penicillins Rash 11/14/2007 documented as of this encounter (statuses as of 03/28/2024) Medications Medication Sig Dispensed Refills Start Date End Date Status aspirin enteric coated 81 MG TBECIndications:Aort ic valve disorder Take 1 Tab by mouth daily. 90 Tab 11 09/30/2018 Active AZO Cranberry 250-30 MG Oral Tablet Take 1 Tablet by mouth in the morning. Active BD Glucose 5 GM Oral Tablet Chewable (Glucose)Indications :DM type 2, not at goal ([facility]) 3 every 15 minutes until glucose [...] MEDICATIONS 90 Tablet 2 01/10/2024 Active Nystatin 933820 UNIT/GM External Powder (Nystop)Indications: Candidal intertrigo Apply [...] of insulin ([facility]) Inject 36 Units under the skin in the morning. 6 mL 2 03/14/2024 Active documented as of this encounter (statuses as of 03/28/2024) Active Problems Problem Noted Date Diagnosed Date [...] eye 09/28/2020 Coronary artery disease invo lving manzanita coronary artery of manzanita heart without angina pectoris 12/16/2019 Last Assessment [...] as of this encounter (statuses as of 03/28/2024) Resolved Problems Problem Noted Date Diagnosed Date [...] mgmt 02/19/2014 12/21/2016 Diabetes mellitus 01/05/2014 12/21/2016 [facility] [facility] OTHER*[id number] 01/05/2014 12/21/2016 Axillary pain 11/03/2013 12/21/2016 Obesity, [...] cath 09/201008/26/2011 12/21/2016 FOLLOWING [facility]/25[facility]) 08/26/2011 12/21/2016 ADVANCE DIRECTIVE INFORMATION 04/17/2011 [...] [facility] V710 Clinical Trial*[id number] 12/22/2010 04/14/2011 S/P aortic valve replacement 12/01/2010 08/26/2011 S/P AORTIC VALVE REPLACEMENT - #25 pericardial Mc valve 11/01/2010 06/28/2018 Overview: Aortic valve replacement with #25 pericardial Mc valve, model 2800TFX, serial number [id number] (Dr. Walker) [facility] V710 Clinical Trial*[id number] 10/18/2010 11/21/2010 Type 2 diabetes mellitus wit [...] as of this encounter (statuses as of 03/28/2024) Immunizations Name Administration Dates Next Due COVID-19 mRNA, LNP-s, No Pre serve, 2-Dose Series (Moderna) 10/25/2021,02/16/2021,01/18/2021 HEP A - Hepatitis A (Adult > 18 yrs) 06/07/2018, 12/05/2017 Hepatitis B, 20+ yrs 06/07/2018,01/08/20 18,12/05/2017,06/15,10/27/2013,09/12/2013 Pneumococcal Conjugate Vacci ne, 20-valent ([id number]) 06/22/2023 Pneumococcal Polysaccharide PPV23 (Pneumovax) 01/02/2008 Seasonal [...] encounter Miscellaneous Notes * Telephone Encounter - Lauro Self RPh - 03/28/2024 1:20 PM EDT Noted MTDM scheduled to start omnipod on Sunday. Lauro Self, PharmD, BCACP, [facility] Clinical Pharmacist 03/28/2024, 1:21 PM * Telephone Encounter - Massimo Frias MD - 03/28/2024 12:42 PM EDT Noted. Fwd sugar info to [facility] * Telephone Encounter - Aaliyah Welch LPN - 03/28/2024 12:03 PM EDT Called and spoke with patient. While on the phone patients reminder went off to check her BG. Her BG reading was 318 while on the phone. Patient states she took her 36 units of tresiba this morning. She had 10units of novolog around 9-9:30am and states she will take 6 units of novolog with lunch. Patient is established with [facility] @ [facility]. Per last OV note: Current diabetic medications: Tresiba 30 units once daily Ozempic 2mg every Sunday Metformin 1000mg twice daily (On Hold) Novolog CF 2/50 over 200 (Flextouch pen) - give before every meal) * Telephone Encounter - Massimo Frias MD - 03/28/2024 9:40 AM EDT Call patient/caregiver- -what is her sugar today? -please confirm--she is only taking 36 units insulin daily? No mealtime insulin? * Telephone Encounter - Renetta Soto OSA - 03/26/2024 3:05 PM EDT Sarah called to let Dr. Rausch know that Jovita's blood sugars are still running high. She stated that today's blood sugar was 465 around noon and they are educating her about trying to stay away from carbohydrated. Sarah just wanted to make Dr. Rausch aware. documented in this encounter Plan of Treatment Upcoming Encounters Date Type Department Care Team (Late st Contact Info) Description 03/31/2024 9:10 AM EDT Office Visit Pharmacy, [facility] [place] [address] [place] [address] Pharmacist1, [facility] [address] [facility] [place] [address] 07/17/2024 9:30 AM EDT Office Visit Cardiology, [facility] [address] [place] [address] Roberto Carlos Muniz, DO [address] [place] [address] 08/12/2024 9:20 AM EST Office Visit Family Practice [facility] [address] [place] [address] Gregory Rausch MD [address] [place] [address] 11/03/2024 11:00 AM EST Office Visit Sleep Disorders [facility] [address] [place] [id number] Christina Birch, DO [address] [place] [address] 11/27/2024 9:40 AM EST Office Visit Nephrology, [facility] [address] [facility] [place] [address] Fidelina Baumann MD [address] [facility] [place] [address] Scheduled Procedures Name Priority Associated Diagnoses Date/Ti [...] Additional history exists CKD PHOS USE SMARTSET 14376 06/18/202405/26, 06/16/2023, 06/15/2023, Additional history exists GFR 07/09/2024 01/08/2024, 09/25, 08/02/2023, Additional history exists HbA1c 08/01/2024 01/30/2024, 08/25, 07/31/2023, Additional history exists Diabetic Eye Exam 09/13/2024 09/13/2023, , 09/13/2023, Additional history exists B-12 09/18/2024 09/18/2023, 08/24, 2020, Additional history exists Depression Monitoring 12/24/2024 12/25/2023 Albumin/Creatinine Ratio 01/07/2025 024, 03/09/2023, 12/22/2022, Additional history exists CKD HGB USE SMARTSET 91123 01/07/202501/07, 01/08/2024, 10/15/2023, Additional history exists TSH [...] this encounter Medical Devices Implanted Type Area Occupational Health And Safety Manager Device Identifier Shelf Expiration Date Model / Serial / Lot Cath Roselia Single Lumen - [id number] Implanted:Qty : 1 on 03/12/2008 at OR [facility] Left: Chest [facility] *DO NOT USE* 07/25/2012 21-4053-24 / / [id number] Sut Steel 6 M654g - [id number] Implanted:Qty : 1 on 11/01/2010 at OR [facility] N/A: Chest DO NOT USE M654G / / Sut Steel 6 M654g - [id number] Implanted:Qty : 1 on 11/01/2010 at OR [facility] N/A: Chest DO NOT USE M654G / / Valve Tarsha Aortic [id number] - [id number] Implanted:Qty : 1 on 11/01/2010 at OR [facility] N/A: Heart MC [employer] DANIEL 05/20/2012 2800TFX-25 / / [id number] Mesh Soft [id number] - [id number] Implanted:Qty : 1 on 10/10/2019 [place]ig Hendricks[place] [facility] [place]A: Abdomen CR BARD : DAVOL [id number] 05/21/2024 [id number] / / [id number] Lens 22.5 Sn60wf - [id number] - [id number] Implanted:Qty : 1 on 09/15/2020 by Reanldo Cook, Cece Acosta MD at [facility] Right: Eye IVA : SURGICAL [id number] 05/13/2025 SN60 WF.225 / [id number] / [id number] Lens 21.5 Sn60wf - [id number] - [id number] Implanted:Qty : 1 on 12/19/2023 by Ramsey Burnett, at OR [facility] Left: Eye IVA : SURGICAL 12/03/2024 SN60WF.2 15 / [id number] / documented as of this encounter [...] patient or by statute hierarchy) Care Teams Armed Security Guard Relationship Specialty Start Date End Date Gregory Rausch MD [address] [place] [address] PCP - General Family Medicine 02/12/20 documented as of this encounter
--- OUTSIDE RECORDS SUMMARY | 2024-06-05 14:45 | External Medical Summary | Summary of Care ---
Author Name Unknown Organization [facility] Address [address] [place] [address] Phone [phone] Care Team Providers Care Regional Education Coordinator Name Role Phone Gregory Rausch MD Primary Care Provider [phone] Reason for Visit * Reason Onset Date Comments Appointment 03/24/2024 Encounter Details Date Type Department Care Team (Late st Contact Info) Description 03/24/2024 Telephone Family Practice [facility] [address] [place] [address] Gregory Rausch MD [address] [place] [address] Appointment Allergies Active Allergy Reactions Criticality [...] (Glucose)Indications :DM type 2, not at goal ([facility]) 3 every 15 minutes until glucose [...] Capsules by mouth in the morning. Active Therapeutic SystemsTouch Verio In Vitro Strip (Glucose Blood) Use up to 4 times a day E11.9 100 Strip 11 01/22/2024 Active Potassium Chloride [facility] 10 MEQ Oral Tablet Extended ReleaseIndications:A cute on chronic heart failure with preserved ejection fraction (HFpEF) ([facility]) Take 1 Tablet by mouth in [...] OTHER MEDICATIONS 90 Tablet 01/10/2024 Active Nystatin 420806 UNIT/GM External Powder (Nystop)Indications: Candidal intertrigo Apply topically to affected area 3 times a day. Apply to affected areas 60 g 01/10/2024 Active Aquaphor External Ointment Apply topically [...] eye 09/28/2020 Coronary artery disease invo lving quinault coronary artery of quina[place] heart without angina pectoris 12/16/2019 Last Assessment [...] mgmt 02/19/2014 12/21/2016 Diabetes mellitus 01/05/2014 12/21/2016 [place] [facility] OTHER*[id number] 01/05/2014 12/21/2016 Axillary pain 11/03/2013 12/21/2016 Obesity, [...] cath 09/201008/26/2011 12/21/2016 FOLLOWING SURGERY, UNSPECIFI ED ([facility] 08/25/2011) 08/26/2011 12/21/2016 ADVANCE DIRECTIVE INFORMATION 04/17/2011 12/21/2016 Overview: Yes, Patient instructed to provide copy of advance directive for provider to review and to be scanned into Electronic Medical Record ADVANCE DIRECTIVE INFORMATION 03/01/2011 12/21/2016 Overview: Yes, Patient instructed to provide copy of advance directive for provider to review and to be scanned into Electronic Medical Record [facility] V710 Clinical Trial*[id number] 12/22/2010 04/14/2011 S/P aortic valve replacement 12/01/2010 08/26/2011 S/P AORTIC VALVE REPLACEMENT - #25 pericardial Mc valve 11/01/2010 06/28/2018 Overview: Aortic valve replacement with #25 pericardial Mc valve, model 2800TFX, serial number [id number] (Dr. Walker) [facility] V710 Clinical Trial*[id number] 10/18/2010 11/21/2010 Type 2 diabetes mellitus wit [...] 06/07/2018,01/08/20 18,12/05/2017,06/15,10/27/2013,09/12/2013 Pneumococcal Conjugate Vacci ne, 20-valent ([id number]) 06/22/2023 Pneumococcal Polysaccharide PPV23 (Pneumovax) 01/02/2008 Seasonal [...] encounter Miscellaneous Notes * Telephone Encounter - Feli Mcclelland, DANYELLE - 03/24/2024 11:42 AM EDT Patient needs appointment in about 4 months (around 07/25/2024) for CPAP check. Unable to make appointment, please call patient to set up appointment . Thank you! documented in this encounter Plan of Treatment Upcoming Encounters Date Type Department Care Team (Late st Contact Info) Description 04/07/2024 6:00 PM EDT Pharmacy Pharmacy, [facility] [address] [place] [address] Pharmacist1, [facility] [address] [facility] [place] [address] 07/17/2024 9:30 AM EDT Office Visit Cardiology, [facility] [address] [place] [address] Roberto Carlos Muniz, DO [address] [place] [address] 08/12/2024 9:20 AM EST Office Visit Family Practice [facility] [address] [place] [address] Gregory Rausch MD [address] [place] [address] 11/03/2024 11:00 AM EST Office Visit Sleep Disorders [facility] [address] [place] [phone] Christina Birch, [address] [place] [address] 11/27/2024 9:40 AM EST Office Visit Nephrology, [facility] [address] [place] [address] Fidelina Baumann MD [address] [facility] [place] [address] Scheduled Procedures Name Priority Associated Diagnoses Date/Ti [...] Additional history exists CKD PHOS USE SMARTSET 38630 06/18/202405/26, 06/16/2023, 06/15/2023, Additional history exists GFR 07/09/2024 01/08/2024, 09/25, 08/02/2023, Additional history exists HbA1c 08/01/2024 01/30/2024, 08/25, 07/31/2023, Additional history exists Diabetic Eye Exam 09/13/2024 09/13/2023, , 09/13/2023, Additional history exists B-12 09/18/2024 09/18/2023, 08/24, 2020, Additional history exists Depression Monitoring 12/24/2024 12/25/2023 Albumin/Creatinine Ratio 01/07/2025 024, 03/09/2023, 12/22/2022, Additional history exists CKD HGB USE SMARTSET 50927 01/07/202501/07, 01/08/2024, 10/15/2023, Additional history exists TSH [...] this encounter Medical Devices Implanted Type Area Training Instructor Device Identifier Shelf Expiration Date Model / Serial / Lot Cath Roselia Single Lumen - [id number] Implanted:Qty : 1 on 03/12/2008 at OR [facility] Left: Chest [facility] *DO NOT USE* 07/25/2012 21-4053-24 / / [id number] Sut Steel 6 M654g - [id number] Implanted:Qty : 1 on 11/01/2010 at OR [facility] N/A: Chest DO NOT USE M654G / / Sut Steel 6 M654g - [id number] Implanted:Qty : 1 on 11/01/2010 at OR [facility] N/A: Chest DO NOT USE M654G / / Valve Tarsha Aortic [id number] - [id number] Implanted:Qty : 1 on 11/01/2010 at OR [facility] N/A: Heart [employer] 05/20/2012 2800TFX-25 / / [id number] Mesh Soft [id number] - [id number] Implanted:Qty : 1 on 10/10/2019 by Gigi Hendrickson MD at OR [facility] N/A: Abdomen CR BARD : DAVOL [id number] 05/21/2024 [id number] / / [id number] Lens 22.5 Sn60wf - [id number] - [id number] Implanted:Qty : 1 on 09/15/2020 by Renaldo Cook, Cece Acosta MD at OR [facility] Right: Eye IVA : SURGICAL [id number] 05/13/2025 SN60 WF.225 / [id number] / [id number] Lens 21.5 Sn60wf - [id number] - [id number] Implanted:Qty : 1 on 12/19/2023 by Ramsey Burnett DO at OR [facility] Left: Eye IVA : SURGICAL 12/03/2024 SN60WF.2 15 / [id number] / documented as of this encounter [...] or by statute hierarchy) Care Teams Regional Education Coordinator Relationship Specialty Start Date End Date Gregory Rausch MD [address] [place] [address] PCP - General Family Medicine 5/21/20 documented as of this encounter
--- OUTSIDE RECORDS SUMMARY | 2024-06-05 14:46 | External Medical Summary | Summary of Care ---
Author Name Unknown Organization [facility] Address [address] [place] [address] Phone [phone] Care Team Providers Care Machinery Repair Maintenance Supervisor Name Role Phone Gregory Rausch MD Primary Care Provider [phone] Reason for Visit * Reason Comments Follow Up Here return sleep. L ast seen 07/14. DANYELLE. CPAP. Use it off and on per patient. Encounter Details Date Type Department Care Team (Late st Contact Info) Description 03/24/2024 11:00 AM EDT Office Visit Sleep Disorders Ctr [facility] [address] [place] [id number] Christina Birch, [address] [place] [phone] Obstructive sleep apnea* Allergies Active Allergy Reactions Criticality Noted Date Comments Adhesive Tape 07/02/2017 Can tolerate band-aids Glycerin Other (Please comment) 03/12/2008 Topical agents with glycein-burning & itching Lactose 12/09/2014 Dairy - gas Lisinopril Cough 01/21/2010 Monosodium Glutamate Edema Other 03/12/2008 Hands and feet Penicillins Rash 11/14/2007 documented as of this encounter (statuses as of 03/24/2024) Medications Medication Sig Dispensed Refills Start Date End Date Status aspirin enteric coated 81 MG TBECIndications:Aort ic valve disorder Take 1 Tab by mouth daily. 90 Tab 11 09/30/2018 Active AZO Cranberry 250-30 MG Oral Tablet Take 1 Tablet by mouth in the morning. Active BD Glucose 5 GM Oral Tablet Chewable (Glucose)Indications :DM type 2, not at goal ([facility]) 3 every 15 minutes until glucose [...] preserved ejection fraction (HFpEF) ([facility]) Take 1 Tablet by mouth in the morning and 1 Tablet before bedtime. 180 Tablet 3 01/22/2024 Active BD Pen Needle Short U/F 31G X 8 MMIndications:Type 2 diabetes mellitus with hemoglobin A1c goal of less than 7.0% ([facility]),Type 2 diabetes mellitus with stage 3a chronic kidney disease, with long-term current use of insulin ([facility]) Use with insulin 4 times daily [...] OTHER MEDICATIONS 90 Tablet 01/10/2024 Active Nystatin 867480 UNIT/GM External Powder (Nystop)Indications: Candidal intertrigo Apply [...] :Heart failure, systolic, due to idiopathic cardiomyopathy ([facility]),S/P aortic valve replacement,HTN, goal below 140/80,Dyslipidemia, [...] as of this encounter (statuses as of 03/24/2024) Active Problems Problem Noted Date Diagnosed Date [...] eye 09/28/2020 Coronary artery disease invo lving [place] coronary artery of [place] heart without angina pectoris 12/16/2019 [...] as of this encounter (statuses as of 03/24/2024) Resolved Problems Problem Noted Date Diagnosed Date [...] 12/21/2016 Diabetes mellitus 01/05/2014 12/21/2016 LEYVA RESEARCH OTHER*[id number] 01/05/2014 12/21/2016 Axillary pain 11/03/2013 12/21/2016 Obesity, [...] to be scanned into Electronic Medical Record [facility] V710 Clinical Trial*[id number] 12/22/2010 04/14/2011 S/P aortic valve replacement 12/01/2010 08/26/2011 S/P AORTIC VALVE REPLACEMENT - #25 pericardial Mc valve 11/01/2010 06/28/2018 Overview: Aortic valve replacement with #25 pericardial Mc valve, model [id number], serial number [id number] (Dr. Walker) [facility] V710 Clinical Trial*[id number] 10/18/2010 11/21/2010 Type 2 diabetes mellitus wit [...] as of this encounter (statuses as of 03/24/2024) Immunizations Name Administration Dates Next Due COVID-19 mRNA, LNP-s, No Pre serve, 2-Dose Series (Moderna) 10/25/2021,02/16/2021,01/18/2021 HEP A - Hepatitis A (Adult > 18 yrs) 06/07/2018, 12/05/2017 Hepatitis B, 20+ yrs 06/07/2018,01/08/20 18,12/05/2017,06/15,10/27/2013,09/12/2013 Pneumococcal Conjugate Vacci ne, 20-valent ([id number]) 06/22/2023 Pneumococcal Polysaccharide PPV23 (Pneumovax) 01/02/2008 Seasonal [...] Sign Reading Time Taken Comments Blood Pressure 112/74 03/24/2024 11:11 AM EDT Pulse 88 03/24/2024 11:11 AM EDT Temperature 36.3 C (97.4 F) 03/24/2024 11:11 AM E DT Respiratory Rate 16 03/24/2024 11:11 AM EDT Oxygen Saturation 97% 03/24/2024 11:11 AM EDT Inhaled Oxygen Concentration - - Weight 68 kg (150 lb) 03/24/2024 11:11 AM EDT Height 149.9 cm (4' 11") 03/24/2024 11:11 AM EDT Body Mass Index 30.3 03/24/2024 11:11 AM EDT documented in this [...] as of this encounter Progress Notes * Christina Birch, - 03/24/2024 11:05 AM EDT Sleep Medicine Follow-Up HISTORY: Jovita Rose is a 63 year old female for follow up of severe DANYELLE. Accompanied by a caregiver. She was initially tested for DANYELLE due to planning for open-heart surgery. She always snores, and wassleepy. PSG 09/20/2010 with AHI 34.3, SpO2 khadijah 65%, time <= 88% 58.2 minutes, PLMI 3.3. PAP titration 10/30/2010: optimal setting 15 cmH2O with resolution of nocturnal hypoxemia. Split-night PSG 08/30/2017 (weight 230 lbs): AHI 61.7, SpO2 khadijah 68%, time <88% 105 minutes. Optimal setting 16 cmH2O; 1 LPM oxygen added due to persistent hypoxemia. Using CPAP 16 cmH2O without oxygen. 05/15/2019: using CPAP with suboptimal adherence. Good efficacy per residual AHI. Santee was 17 (improved from 24 prior to PAP). 07/14/2020: persistent SO and SM insomnia and daytime sleepiness. + weight loss. Santee 22. Low CPAP usage; recommended increasing usage. 07/14/21 (weight 210 lbs): having issues with tubing stuck in her machine, mask riding up into her eye, pressure of 16 cwp sometimes feeling insufficient. Ordered mask fitting, setting adjustment to 16-20 cwp, and for DME to check her device to remove the stuck tubing and ensure correctly fitting replacement tubing. Using CPAP 16-20 cmH2O. Sometimes feels like pressure could be higher. Has not used in about 2 months because she was not sure how to clean the tubing. Sleeping without the CPAP now, "I'm up all night." She does sleep better with the CPAP. Snoring on PAP: no Daytime sleepiness: yes Daytime napping: at least once a day -- sometimes she falls asleep without meaning to (often when watching a movie). Mask leak: no Dry nose or dry mouth: occasional Aerophagia: no Recent weight change: lost weight [place] Sleepiness Scale: 17 Mod F.O.S.Q.: 28 Travel Screening Question 03/24/2024 10:58 AM EDT - Filed by Patient Do you have any of the following new or worsening symptoms? None of these Have you recently been in contact with someone who was sick? No / Unsure [place] Sleepiness Scale Question 03/24/2024 11:05 AM EDT - Filed by Patient What is the chance you will doze off in the following situation? Sitting and reading High chance of dozing Watching TV High chance of dozing Sitting inactive in a public place, such as a theater or meeting Slight chance of dozing As a passenger in a car for an hour without a break High chance of dozing Lying down to rest in the afternoon when circumstances permit High chance of dozing When sitting and talking to someone Slight chance of dozing When sitting quietly after lunch without alcohol High chance of dozing In a car, while stopped for a few minutes in traffic No chance of dozing Score (range: 0 - 24) 17 Functional Outcomes Of Sleep Question 03/24/2024 11:07 AM EDT - Filed by Destiny Lopes LPN Please complete the following questions. Do you have difficulty concentrating because you are sleepy or tired? Yes, moderate Do you have difficulty remembering things because you are sleepy or tired? Yes, moderate Do you have difficulty operating a motor vehicle for short distances (less than 100 miles) because you become sleepy? No Do you have difficulty operating a motor vehicle for long distances (more than 100 miles) because you become sleepy? No Do you have difficulty visiting family or friends in their home because you become sleepy or tired?Yes, a little Has your relationship with family, friends, or work colleagues been affected because you are sleepyor tired? No Do you have difficulty watching a movie or video because you become sleepy or tired? Yes, extreme Do you have difficulty being as active as you want to be in the evening because you are tired or sleepy? Yes, moderate Do you have difficulty being as active as you want to be in the morning because you are tired or sleepy? Yes, moderate Has your mood been affected because you are sleepy or tired? No Score (range: 10 - 40) 28 CPAP Compliance: Report date: 12/30/21 % total days used: 16.7% % days used > 4 hours: 0% Average hours per day used: 1h 26m Large leak: 1h 19m AHI: 2.4 /hr Mean pressure: 16 cmH2O 90%ile pressure: 16 cmH2O Pressure settin-20 cmH2O She brought her device with her, however there is no usage recorded in the past 30 days, so updateddata is not available directly on her device. Equipment: DME Provider is [facility] Uses a [email or web address] auto. Additional changes in health in the interim of care: Came off of psychiatric medications Needed surgery for "metal in her middle", however nothing was found per patient report. Patient Active Problem List Diagnosis Dyslipidemia DANYELLE [...] Medical marijuana use Coronary artery disease involving [place] coronary artery of [place] heart without angina pectoris Cystoid macular edema of right eye Type 2 diabetes mellitus with stage 3a chronic kidney disease, with long-term current use of insulin (HCC) Type 2 diabetes mellitus with hemoglobin A1c goal of less than 8.0% (HCC) Type 2 diabetes mellitus with diabetic peripheral angiopathy without gangrene ([facility]) Obesity, Class I, BMI 30.0-34.9 (see actual BMI) Thrombocytopenia (HCC) Hypertensive kidney disease with stage 3a chronic kidney disease (HCC) Recurrent Clostridium difficile diarrhea Current Outpatient Medications Medication Sig Dispense Refill BD Insulin Syringe 25G X 1" 1 ML (Insulin Syringe-Needle U-100) Use daily with omnipod as directed DX E11.9 100 Each 5 Curity Alcohol Swabs Pad Use as directed as needed 200 Each 5 Tresiba FlexTouch 200 UNIT/ML Subcutaneous Solution Pen-injector (Insulin Degludec) Inject 36 Unitsunder the skin in the morning. 6 mL 2 Magnesium Oxide -Mg Supplement 400 (240 Mg) MG Oral Tablet (Mag-Ox) One tablet by mouth daily in the morning 90 Tablet 3 Fluticasone Propionate 50 MCG/ACT Nasal Suspension (Flonase) Administer 2 Sprays into each nostril in the morning. 16 g 3 Saccharomyces boulardii 250 MG Oral Capsule (Florastor) Take 1 Capsule by mouth in the morning and 1 Capsule before bedtime. 60 Capsule 0 Gabapentin 300 MG Oral Capsule (Neurontin) Take 1 Capsule by mouth in the morning and 1 Capsule at noon and 1 Capsule before bedtime. 90 Capsule 5 Omnipod 5 G6 Intro (Gen 5) Kit Use as directed. Use to delivery insulin via insulin pump OneTouch Verio In Vitro Strip (Glucose Blood) Use up to 4 times a day E11.9 100 Strip 11 Potassium Chloride Shannon ER 10 MEQ Oral Tablet Extended Release Take 1 Tablet by mouth in the morning and 1 Tablet before bedtime. 180 Tablet 3 Ammonium Lactate 12 % External Lotion (Lac-Hydrin) Apply to both feet once daily. 400 g 2 Aquaphor External Ointment Apply topically to affected area as needed for Dry Skin. Apply to face 420 g 0 Atorvastatin Calcium 40 MG Oral Tablet (Lipitor) Take 1 tablet by mouth daily to prevent heart attack/stroke, protect kidney, and cholesterol 90 Tablet 2 BD Pen Needle Short U/F 31G X 8 MM Use with insulin 4 times daily 400 Each 3 Clopidogrel Bisulfate 75 MG Oral Tablet (pLAVix) Take 1 Tablet by mouth in the morning. 90 Tablet 2 Levothyroxine Sodium 75 MCG Oral Tablet (Levoxyl) TAKE 1 TAB BY MOUTH DAILY FIRST THING IN AM, AT LEAST 30 MIN PRIOR TO BREAKFAST OR OTHER MEDICATIONS 90 Tablet 2 Meclizine HCl 25 MG Oral Tablet (Antivert) Take 2 Tablets by mouth 2 times a day. 360 Tablet 2 Metoprolol Tartrate 25 MG Oral Tablet (Lopressor) Take 1 Tablet by mouth in the morning and 1 Tablet before bedtime. 60 Tablet 5 Nystatin 005446 UNIT/GM External Powder (Nystop) Apply topically to affected area 3 times a day. Apply to affected areas 60 g 1 Ozempic (2 MG/DOSE) 8 MG/3ML Subcutaneous Solution Pen-injector (Semaglutide (2 MG/DOSE)) Inject 2 mg under the skin once a week. 9 mL 3 Probiotic (Lactobacillus) Oral Capsule Take 2 Capsules by mouth in the morning. Diclofenac Sodium 0.1 % Ophthalmic Solution (Voltaren) Instill 1 Drop into the left eye in the morning and 1 Drop at noon and 1 Drop in the evening and 1 Drop before bedtime. 2.5 mL 1 One-A-Day Womens 50 Plus Oral Tablet Take 1 Tablet by mouth in the morning. CPAP every night at bedtime. DULoxetine HCl 20 MG Oral Capsule Delayed Release Particles (Cymbalta) Take 1 Capsule by mouth in the morning. 30 Capsule 5 traZODone HCl 100 MG Oral Tablet (Desyrel) Take 1 Tablet by mouth at bedtime. Gaviscon 80-14.2 MG Oral Tablet Chewable (Alum Hydroxide-Mag Trisilicate) Take by mouth as needed. Melatonin 10 MG Oral Capsule Take 1 Capsule by mouth at bedtime. OneTouch Delica Lancets 33G TEST 4 TIMES DAILY DIRECTED, E11.9 400 Each 3 OneTouch Verio w/Device Kit Use up to 4 times a day E11.9 1 Kit 0 BD Glucose 5 GM Oral Tablet Chewable (Glucose) 3 every 15 minutes until glucose is > 100 mg/dL for hypoglycemia E11.9 100 Tab 3 AZO Cranberry 250-30 MG Oral Tablet Take 1 Tablet by mouth in the morning. aspirin enteric coated 81 MG TBEC Take 1 Tab by mouth daily. 90 Tab 11 No current facility-administered medications for this visit. PHYSICAL EXAM: Filed Vitals: 03/24/24 1111 BP: 112/74 Pulse: 88 Resp: 16 Temp: 36.3 C (97.4 F) TempSrc: Tympanic SpO2: 97% Weight: 68 kg (150 lb) Height: 1.499 m (4' 11") Body mass index is 30.3 kg/m. General: alert, no acute distress Head: NC/AT Lungs: normal respiratory effort Neuro: speech clear ASSESSMENT/PLAN: Obstructive sleep apnea - insufficient adherence; encourage increased use of CPAP with all sleep - reviewed how to clean the tubing; she will clean it and then restart CPAP use. - note that she has lost weight (over 50 lbs), however, she reports continued sxs of sleep apnea, and feels that she sleeps more solidly with CPAP; thus we will continue treating with CPAP at this time. - good objective efficacy of therapy per most recent available data; continue PAP at current setting 16-20 [place]H2O [place] [facility] [place] [facility] - Routine cleaning and change of supplies as needed. - Weight loss can result in improvement in the patient's nocturnal respiratory events. - Continue to avoid driving when feeling sleepy/drowsy. Follow-up with Sleep Medicine in 4 months. Christina Birch DO documented in this encounter Nursing Notes * Destiny Lopes LPN - 03/24/2024 11:11 AM EDT Chief Complaint Patient presents with Follow Up Here return sleep. Last seen 07/14. DANYELLE. CPAP. Use it off and on per patient. Neck: 14". Travel Screening Question 03/24/2024 10:58 AM EDT - Filed by Patient Do you have any of the following new or worsening symptoms? None of these Have you recently been in contact with someone who was sick? No / Unsure [place] Sleepiness Scale Question 03/24/2024 11:05 AM EDT - Filed by Patient What is the chance you will doze off in the following situation? Sitting and reading High chance of dozing Watching TV High chance of dozing Sitting inactive in a public place, such as a theater or meeting Slight chance of dozing As a passenger in a car for an hour without a break High chance of dozing Lying down to rest in the afternoon when circumstances permit High chance of dozing When sitting and talking to someone Slight chance of dozing When sitting quietly after lunch without alcohol High chance of dozing In a car, while stopped for a few minutes in traffic No chance of dozing Score (range: 0 - 24) 17 Functional Outcomes Of Sleep Question 03/24/2024 11:07 AM EDT - Filed by Destiny Lopes LPN Please complete the following questions. Do you have difficulty concentrating because you are sleepy or tired? Yes, moderate Do you have difficulty remembering things because you are sleepy or tired? Yes, moderate Do you have difficulty operating a motor vehicle for short distances (less than 100 miles) because you become sleepy? No Do you have difficulty operating a motor vehicle for long distances (more than 100 miles) because you become sleepy? No Do you have difficulty visiting family or friends in their home because you become sleepy or tired?Yes, a little Has your relationship with family, friends, or work colleagues been affected because you are sleepyor tired? No Do you have difficulty watching a movie or video because you become sleepy or tired? Yes, extreme Do you have difficulty being as active as you want to be in the evening because you are tired or sleepy? Yes, moderate Do you have difficulty being as active as you want to be in the morning because you are tired or sleepy? Yes, moderate Has your mood been affected because you are sleepy or tired? No Score (range: 10 - 40) 28 documented in this encounter Plan of Treatment Upcoming Encounters Date Type Department Care Team (Late st Contact Info) Description 03/25/2024 10:00 AM EDT Home Visit [facility] [address] [place] [address] Jaycee Sorto RN [address] [place] [phone] 03/31/2024 9:10 AM EDT Office Visit Pharmacy, [facility] [address] [facility] [place] [address] Pharmacist1, [facility] [address] [facility] [place] [address] 07/17/2024 9:30 AM EDT Office Visit Cardiology, [facility] [address] [place] [address] Roberto Carlos Muniz, [address] [address] 08/12/2024 9:20 AM EST Office Visit Family Practice [facility] [address] [place] [address] Gregory Rausch MD [address] [place] [address] 11/27/2024 9:40 AM EST Office Visit Nephrology, [facility] [address] [facility] [place] [address] Fidelina Baumann MD [address] [facility] [place] [address] Scheduled Procedures Name Priority Associated Diagnoses Date/Ti [...] Additional history exists CKD PHOS USE SMARTSET 94939 06/18/202405/26, 06/16/2023, 06/15/2023, Additional history exists GFR 07/09/2024 01/08/2024, 09/25, 08/02/2023, Additional history exists HbA1c 08/01/2024 01/30/2024, 08/25, 07/31/2023, Additional history exists Diabetic Eye Exam 09/13/2024 09/13/2023, , 09/13/2023, Additional history exists B-12 09/18/2024 09/18/2023, 08/24, 2020, Additional history exists Depression Monitoring 12/24/2024 12/25/2023 Albumin/Creatinine Ratio 01/07/2025 024, 03/09/2023, 12/22/2022, Additional history exists CKD HGB USE SMARTSET 46223 01/07/202501/07, 01/08/2024, 10/15/2023, Additional history exists TSH [...] Pneumococcal Vaccine: 65+ Years Completed 06/22/2023, 01/02/2008 GARDASIL-HPV IMMUNIZATION SERIES Aged Out No longer eligible based on patient's age to complete this topic MENINGOCOCCAL (MENACTRA/MENVEO) Aged Out No longer eligible based on patient's age to complete this topic documented as of this encounter Medical Devices Implanted Type Area Industrial Design Engineer Device Identifier Shelf Expiration Date Model / Serial / Lot Cath Roselia Single Lumen - [id number] Implanted:Qty : 1 on 03/12/2008 at OR [facility] Left: Chest [facility] *DO NOT USE* 07/25/2012 [id number] / / [id number] Sut Steel 6 M654g - [id number] Implanted:Qty : 1 on 11/01/2010 at OR [facility] N/A: Chest DO NOT USE M654G / / Sut Steel 6 M654g - [id number] Implanted:Qty : 1 on 11/01/2010 at OR [facility] N/A: Chest DO NOT USE M654G / / Valve Tarsha Aortic [id number] - [id number] Implanted:Qty : 1 on 11/01/2010 at OR [facility] N/A: Heart [employer]EL 05/20/2012 [id number] / / [id number] Mesh Soft [id number] - [id number] Implanted:Qty : 1 on 10/10/2019 by Gigi Hendrickson MD [place] [facility] [place]/A: Abdomen CR BARD : DAVOL [id number] 05/21/2024 [id number] / / [id number] Lens 22.5 Sn60wf - [id number] - [id number] Implanted:Qty : 1 on 09/15/2020 by Renaldo Cook, Cece Acosta MD at OR [facility] Right: Eye IVA : SURGICAL [id number] 05/13/2025 SN60 WF.225 / [id number] / [id number] Lens 21.5 Sn60wf - [id number] - [id number] Implanted:Qty : 1 on 12/19/2023 by Ramsey Burnett DO at OR [facility] Left: Eye IVA : SURGICAL 12/03/2024 SN60WF.2 15 / [id number] / documented as of this encounter Visit Diagnoses Diagnosis Obstructive sleep apnea- Primary Obstructive sleep apnea (adult) (pediatric) documented in this encounter Advance Directives * [...] Healthcare Agent Relationshi p Communication [facility]igi [facility]ierrez [facility] Child Health Care Repr esentative (appointed verbally by patient or by statute hierarchy) Care Teams Machinery Repair Maintenance Supervisor Relationship Specialty Start Date End Date Gregory Rausch MD [address] [place] [address] PCP - General Family Medicine 02/12/20 documented as of this encounter
--- OUTSIDE RECORDS SUMMARY | 2024-06-05 14:46 | External Medical Summary | Summary of Care ---
Author Name Unknown Organization [facility] Address [address] [place] [address] Phone [phone] Care Team Providers Care Closing Coordinator Name Role Phone Gregory Rausch MD Primary Care Provider [phone] Reason for Visit * Reason Onset Date Comments Other 03/24/2024 DME order Encounter Details Date Type Department Care Team (Late st Contact Info) Description 03/24/2024 Telephone Sleep Disorders Ctr [facility] [address] [place] [address] Christina Birch DO [address] [place] [id number] Other (DME order ) Allergies Active Allergy Reactions Criticality Noted Date [...] (Glucose)Indications :DM type 2, not at goal ([facility]) 3 every 15 minutes [...] heart failure with preserved ejection fraction (HFpEF) ([facility]) Take 1 Tablet by mouth in the morning and 1 Tablet before bedtime. 180 Tablet 3 01/22/2024 Active BD Pen Needle Short U/F 31G X 8 MMIndications:Type 2 diabetes mellitus with hemoglobin A1c goal of less than 7.0% ([facility]),Type 2 diabetes mellitus with stage 3a chronic kidney disease, with long-term current use of insulin ([facility]) Use with insulin 4 [...] MEDICATIONS 90 Tablet 2 01/10/2024 Active Nystatin 402683 UNIT/GM External Powder (Nystop)Indications: Candidal intertrigo Apply [...] disease, with long-term current use of insulin ([facility]) Inject 36 Units under [...] Coronary artery disease invo lving [place] coronary artery of [place] heart without angina pectoris 12/16/2019 Last Assessment [...] 12/21/2016 Diabetes mellitus 01/05/2014 12/21/2016 LEYVA RESEARCH OTHER*[id number] 01/05/2014 12/21/2016 Axillary pain 11/03/2013 12/21/2016 Obesity, [...] Record [facility] V710 Clinical Trial*[id number] 12/22/2010 04/14/2011 S/P aortic valve replacement 12/01/2010 08/26/2011 S/P AORTIC VALVE REPLACEMENT - #25 pericardial Mc valve 11/01/2010 06/28/2018 Overview: Aortic valve replacement with #25 pericardial Mc valve, model 2800TFX, serial number [id number] (Dr. Walker) [facility] V710 Clinical Trial*[id number] 10/18/2010 11/21/2010 Type 2 diabetes mellitus wit [...] 06/07/2018,01/08/20 18,12/05/2017,06/15,10/27/2013,09/12/2013 Pneumococcal Conjugate Vacci ne, 20-valent ([id number]) 06/22/2023 Pneumococcal Polysaccharide PPV23 (Pneumovax) 01/02/2008 Seasonal [...] encounter Miscellaneous Notes * Telephone Encounter - Linda Moon OSA - 03/24/2024 1:34 PM EDT DME order for CPAP supplies submitted to [employer]. documented in this encounter Plan of Treatment Upcoming Encounters Date Type Department Care Team (Late st Contact Info) Description 03/25/2024 10:00 AM EDT Home Visit [place] at [place], [facility] [address] [place] [address] Jaycee Sorto, RN [address] [place] [address] 03/31/2024 9:10 AM EDT Office Visit Pharmacy, [facility] [address] [facility] [place] [address] Pharmacist1, [facility] [address] [facility] [place] [address] 07/17/2024 9:30 AM EDT Office Visit Cardiology, [facility] [address] [place] [address] Roberto Carlos Muniz, [address] [place] [address] 08/12/2024 9:20 AM EST Office Visit Family Practice [facility] [address] [facility] [place] [address] Gregory Rausch MD [address] [facility] [place] [address] 11/27/2024 9:40 AM EST Office Visit Nephrology, [facility] [address] [facility] [place] [address] Fidelina Baumann MD [address] [facility] [place] [address] Scheduled Procedures Name Priority Associated Diagnoses Date/Ti [...] Additional history exists CKD PHOS USE SMARTSET 14234 06/18/202405/26, 06/16/2023, 06/15/2023, Additional history exists GFR 07/09/2024 01/08/2024, 09/25, 08/02/2023, Additional history exists HbA1c 08/01/2024 01/30/2024, 08/25, 07/31/2023, Additional history exists Diabetic Eye Exam 09/13/2024 09/13/2023, , 09/13/2023, Additional history exists B-12 09/18/2024 09/18/2023, 08/24, 2020, Additional history exists Depression Monitoring 12/24/2024 12/25/2023 Albumin/Creatinine Ratio 01/07/2025 024, 03/09/2023, 12/22/2022, Additional history exists CKD HGB USE SMARTSET 75790 01/07/202501/07, 01/08/2024, 10/15/2023, Additional history exists TSH [...] this encounter Medical Devices Implanted Type Area Oil Gas [employer] Pipe Tester Device Identifier Shelf Expiration Date Model / Serial / Lot Cath Roselia Single Lumen - [id number] Implanted:Qty : 1 on 03/12/2008 at OR [facility] Left: Chest [facility] *DO NOT USE* 07/25/2012 21-4053-24 / / [id number] Sut Steel 6 M654g - [id number] Implanted:Qty : 1 on 11/01/2010 at OR [facility] N/A: Chest DO NOT USE M654G / / Sut Steel 6 M654g - [id number] Implanted:Qty : 1 on 11/01/2010 at OR [facility] N/A: Chest DO NOT USE M654G / / Valve Tarsha Aortic [id number] - [id number] Implanted:Qty : 1 on 11/01/2010 at OR [facility] N/A: Heart [employer] DANIEL 05/20/2012 2800TFX-25 / / [id number] Mesh Soft [id number] - [id number] Implanted:Qty : 1 on 10/10/2019 by Gigi Hendrickson MD at [place] [facility] N/A: Abdomen CR BARD : DAVOL [id number] 05/21/2024 [id number] / / [id number] Lens 22.5 Sn60wf - [id number] - [id number] Implanted:Qty : 1 on 09/15/2020 by Renaldo Cook, Cece Acosta MD at [facility] Right: Eye IVA : SURGICAL [id number] 05/13/2025 SN60 WF.225 / [id number] / [id number] Lens 21.5 Sn60wf - [id number] - [id number] Implanted:Qty : 1 on 12/19/2023 by Ramsey Burnett DO at OR [facility] Left: Eye IVA : SURGICAL 12/03/2024 SN60WF.2 15 / [id number] / documented as of this encounter [...] patient or by statute hierarchy) Care Teams Closing Coordinator Relationship Specialty Start Date End Date Gregory Rausch MD [address] [place] [address] PCP - General Family Medicine 02/12/20 documented as of this encounter
--- OUTSIDE RECORDS SUMMARY | 2024-06-05 14:47 | External Medical Summary | Summary of Care ---
Author Name Unknown Organization [facility] Address [address] [place] [address] Phone [phone] Care Team Providers Care Borough Coordinator Name Role Phone Gregory Rausch MD Primary Care Provider [phone] Reason for Visit * Reason Onset Date Comments Home Health 03/13/2024 Encounter Details Date Type Department Care Team (Late st Contact Info) Description 03/13/2024 Telephone Family Practice [facility] [address] [place] [address] Gregory Rausch MD [address] [facility] [place] [address] Home Health Allergies Active Allergy Reactions Criticality Noted Date Comments Adhesive Tape 07/02/2017 Can tolerate band-aids Glycerin Other (Please comment) 03/12/2008 Topical agents with glycein-burning & itching Lactose 12/09/2014 Dairy - gas Lisinopril Cough 01/21/2010 Monosodium Glutamate Edema Other 03/12/2008 Hands and feet Penicillins Rash 11/14/2007 documented as of this encounter (statuses as of 03/13/2024) Medications Medication Sig Dispensed Refills Start Date [...] Trisilicate) Take by mouth as needed. Active BD Insulin Syringe 25G X 1" 1 ML (Insulin Syringe-Needle U-100) Use daily with omnipod as directed DX E11.9 100 Each 5 09/20/2023 Active Curity Alcohol Swabs Pad Use as directed as needed 200 Each 5 09/20/2023 Active traZODone HCl 100 MG Oral Tablet (Desyrel) Take 1 Tablet by mouth at bedtime. Active DULoxetine HCl 20 MG Oral Capsule Delayed Release Particles (Cymbalta) Take 1 Capsule by mouth in the morning. 30 Capsule 5 12/12/2023 Active CPAP every night at bedtime. Active One-A-Day Womens 50 Plus Oral Tablet Take 1 Tablet by mouth in the morning. Active prednisoLONE Acetate 1 % Ophthalmic Suspension (Pred Forte) Instill 1 Drop into both eyes in the morning and 1 Drop at noon and 1 Drop in the evening and 1 Drop before bedtime. 5 mL 1 01/03/2024 Active Diclofenac Sodium 0.1 % Ophthalmic Solution (Voltaren) Instill 1 Drop into the left eye in the morning and 1 Drop at noon and 1 Drop in the evening and 1 Drop before bedtime. 2.5 mL 01/03/2024 Active Probiotic (Lactobacillus) Oral Capsule Take 2 Capsules by mouth in the morning. Active Your EnergyTouch Verio In Vitro Strip (Glucose Blood) Use up to 4 times a day E11.9 100 Strip 11 01/22/2024 Active Potassium Chloride Shannon ER 10 MEQ Oral Tablet Extended ReleaseIndications:A cute on chronic heart failure with preserved ejection fraction (HFpEF) ([facility]) Take 1 Tablet by mouth in the morning and 1 Tablet before bedtime. 180 Tablet 3 01/22/2024 Active Tresiba FlexTouch 200 UNIT/ML Subcutaneous Solution Pen-injector (Insulin Degludec)Indications :Type 2 diabetes mellitus with hemoglobin A1c goal of less than 7.0% ([facility]),Type 2 diabetes mellitus with stage 3a chronic kidney disease, with long-term current use of insulin ([facility]) Inject 30 Units under the skin in the morning. 6 mL 2 01/10/2024 Active BD Pen Needle Short U/F 31G X 8 MMIndications:Type 2 diabetes mellitus with hemoglobin A1c goal of less than 7.0% ([facility]),Type 2 diabetes mellitus with stage 3a chronic kidney disease, with long-term current use of insulin ([facility]) Use with insulin 4 times daily 400 Each 01/10/2024 Active Clopidogrel Bisulfate 75 MG Oral Tablet (pLAVix) Take 1 Tablet by mouth in the morning. 90 Tablet 01/10/2024 Active Levothyroxine Sodium 75 MCG Oral Tablet (Levoxyl)Indications :Hypothyroidism TAKE 1 TAB BY MOUTH DAILY FIRST THING IN AM, AT LEAST 30 MIN PRIOR TO BREAKFAST OR OTHER MEDICATIONS 90 Tablet 2 01/10/2024 Active Nystatin 220361 UNIT/GM External Powder (Nystop)Indications: Candidal intertrigo Apply [...] :Heart failure, systolic, due to idiopathic cardiomyopathy ([facility]),S/P aortic valve replacement,HTN, goal below [...] before bedtime. 60 Tablet 5 01/10/2024 Active Fidaxomicin 200 MG Oral Tablet (Dificid)Indications :Recurrent Clostridium difficile diarrhea Take 1 Tablet by mouth in the morning and 1 Tablet before bedtime. 20 Tablet 02/04/2024 Active Gabapentin 300 MG Oral Capsule (Neurontin) [...] the morning 90 Tablet 3 03/07/2024 Active documented as of this encounter (statuses as of 03/13/2024) Active Problems Problem Noted Date Diagnosed Date [...] eye 09/28/2020 Coronary artery disease invo lving [place] coronary artery of [place] heart without angina pectoris 12/16/2019 Last Assessment [...] as of this encounter (statuses as of 03/13/2024) Resolved Problems Problem Noted Date Diagnosed Date [...] 12/21/2016 Diabetes mellitus 01/05/2014 12/21/2016 LEYVA RESEARCH OTHER*[id number] 01/05/2014 12/21/2016 Axillary pain 11/03/2013 12/21/2016 Obesity, [...] 12/21/2016 FOLLOWING SURGERY, UNSPECIFI ED ([facility] BSO 08/25/2011) 08/26/2011 12/21/2016 ADVANCE [...] Record [facility] V710 Clinical Trial*[id number] 12/22/2010 04/14/2011 S/P aortic valve replacement 12/01/2010 08/26/2011 S/P AORTIC VALVE REPLACEMENT - #25 pericardial [place] valve 11/01/2010 06/28/2018 Overview: Aortic valve replacement with #25 pericardial [place] valve, model 2800TFX, serial number [id number] (Dr. Walker) [facility] V710 Clinical Trial*[id number] 10/18/2010 11/21/2010 Type 2 diabetes mellitus wit [...] as of this encounter (statuses as of 03/13/2024) Immunizations Name Administration Dates Next Due COVID-19 mRNA, LNP-s, No Pre serve, 2-Dose Series (Moderna) 10/25/2021,02/16/2021,01/18/2021 HEP A - Hepatitis A (Adult > 18 yrs) 06/07/2018, 12/05/2017 Hepatitis B, 20+ yrs 06/07/2018,01/08/20 18,12/05/2017,06/15,10/27/2013,09/12/2013 Pneumococcal Conjugate Vacci ne, 20-valent ([id number]) 06/22/2023 Pneumococcal Polysaccharide PPV23 (Pneumovax) 01/02/2008 Seasonal [...] Notes * Telephone Encounter - Lauro Self [facility] - 03/13/2024 3:26 PM EDT [facility] has attempted to schedule to the patient for a dexcom G6/omnipod V start 4 times or more in the past month and a half. Efforts to improve the patients blood sugar have been often met with resistance by the patient. Will attempt to reach out to the patient again tomorrow and see if we can adjust her insulin regimen further while we are waiting on all the supplies to be able to do the omnipod V start for the second time. Lauro Self PharmD, JAM, [facility] Clinical Pharmacist 03/13/2024, 3:31 PM * Telephone Encounter - Fang Cisneros [facility] - 03/13/2024 3:14 PM EDT Forwarding to SP who has been following patient most recently. Fang Cisneros, Pharm D, JAM Clinical Pharmacist 03/13/2024, 3:14 PM * Telephone Encounter - Ibeth Lopez LPN - 03/13/2024 2:14 PM EDT Home Health Concern: Nataly RN, Calling from: Joel Report/Concerns of:BS Symptoms: none Vitals: Temp 98.2 Pulse 90 Resp 18 BP 124/60 O2 Sat 97% R/A Wt: N/A BS: See Below Narrative: 03/12 Random BS check when Nataly was in to see patient around 12:30 pm 447, asymptomatic. Rechecked later in the day by caregiver was 287. Today Nataly called patient and she just checked her BS at 2 pm and it was 418, asymptomatic. Patient admitted to drinking lots of Arnold Valdez Iced Tea, she thought it was the kind that did not have any sugar in it but when Nataly looked at the container she noted that it was not sugar free. Nataly reviewed patient BS log for the past week and all her other readings were in the normal range except for 1 other reading in the 300's. Taking weekly Ozempic and Daily AM Tresiba because caregiver administers these for patient. Nataly feels that patient is not compliant with taking meds per order when caregiver isnt present. Has caregiver during the day only. Nataly does not know why patient does not check her BS's in the morning fasting. Noted that there is an order for an OmniPod on her med list but patient does not have this yet Also suppose to be getting an insulin pump Patient said that they still needed one more piece to be able to set her up with the insulin pump Nataly is not sure what patient ment by this Noted in MTM note from 02/20: Patient presents for Omnipod 5 start. She did not have the Omnipod 5 systems project manager nor a Dexcom G6 transmitter so we were unable to start anything today. She is to look for her Dexcom G6 systems project manager and Omnipod 5 systems project manager at home and if found she is to call the clinic to arrange start of G6 and/or Omnipod 5. [facility] is shipping her Dexcom supplies today. I am waiting for a reply from Omnipod Asad Berger tosee about getting a replacement systems project manager. I also asked about Dexcom G7 compatible pods since the patient has G7 cgms and systems project manager. Once all the supplies needed are available I will reschedule her start. MT TE 02/27: Spoke to patient ans she received a box with 3 sensors. She still has no transmitter or reader. Shestated her daughter is going to call [facility] to clarify what she needs. Neeraj Romero, [facility], [facility] Clinical Pharmacist [facility] 02/28/2024, 4:25 PM Also noted in chart that patient called in regarding headaches x 3 weeks on 03/11 She was advised to schedule an appt but no return appts available until 04/24 and patient advised to go to Called patient and she did not go to for her headaches Advised patient that her headaches could be related to her elevated BS's Confirmed that her earlier BS today was 418 Asked her to check her BS again now is 388 and patient still has a headache, denies any other sx's Advised an appt No appts available today or tomorrow at any clinic Offered appt on Sunday but pt declined and asked for an appt next week Scheduled on Sunday with PCP Daughter did call [facility] regarding transmitter and all they told her was that they are working on it Called office, spoke with Lorna - made her aware of the above, she advised to send TE to Dr. Rausch AND MTIrina to see if there is advice for patient until that appt. Sent message to PCP, MTM and G@H Call back Nataly with advice or orders at [phone] * Telephone Encounter - Shantal Van OSA - 03/13/2024 2:10 PM EDT Elevated blood sugars for the past day, wanted to speak with a nurse transferred to [facility] nurse documented in this encounter Plan of Treatment Upcoming Encounters Date Type Department Care Team (Late st Contact Info) Description 03/17/2024 12:20 PM EDT Office Visit Family Practice [facility] [address] [place] [address] Gregory Rausch MD [address] [place] [address] 03/24/2024 11:00 AM EDT Office Visit Sleep Disorders Ctr [facility] [address] [place] [phone] Christina Birch, [address] [place] [address] 03/25/2024 10:00 AM EDT Home Visit Adry at [place], [facility] [address] [place] [address] Jaycee Sorto RN [address] [place] [address] 06/03/2024 9:00 AM EDT Telemedicine Psychiatry Cris [address] [place] [address] Janice Atwood MD [address] [facility] [place] [address] 07/17/2024 9:30 AM EDT Office Visit Cardiology, [facility] [address] [place] [address] Roberto Carlos Muniz, [address] [place] [address] 08/12/2024 9:20 AM EST Office Visit Family Practice [facility] [address] [place] [place] [address] Gregory Rausch MD [address] [place] [address] 11/27/2024 9:40 AM EST Office Visit Nephrology, [facility] [address] [place] [address] Fidelina Baumann MD [address] [place] [address] Scheduled Procedures Name Priority Associated Diagnoses Date/Ti [...] 10/25/2021, 02/16/2021, 01/18/2021 DXA Scan 12/18/2023 01/12/2009 CKD PHOS USE SMARTSET 96136 06/18/202405/26, 06/16/2023, 06/15/2023, Additional history exists GFR 07/09/2024 01/08/2024, 09/25, 08/02/2023, Additional history exists HbA1c 08/01/2024 01/30/2024, 08/25, 07/31/2023, Additional history exists Diabetic Eye Exam 09/13/2024 09/13/2023, , 09/13/2023, Additional history exists B-12 09/18/2024 09/18/2023, 08/24, 2020, Additional history exists Depression Monitoring 12/24/2024 12/25/2023 Albumin/Creatinine Ratio 01/07/2025 024, 03/09/2023, 12/22/2022, Additional history exists CKD HGB USE SMARTSET 07606 01/07/202501/07, 01/08/2024, 10/15/2023, Additional history exists TSH [...] 06/29/2022, 05/25/2021, Additional history exists Pneumococcal Vaccine: 65+ Years Completed 06/22/2023, 01/02/2008 GARDASIL-HPV IMMUNIZATION SERIES Aged Out No longer eligible based on patient's age to complete this topic MENINGOCOCCAL (MENACTRA/MENVEO) Aged Out No longer eligible based on patient's age to complete this topic documented as of this encounter Medical Devices Implanted Type Area Creche Attendant Device Identifier Shelf Expiration Date Model / Serial / Lot Cath Roselia Single Lumen - [id number] Implanted:Qty : 1 on 03/12/2008 at [facility] Left: Chest [facility] *DO NOT USE* 07/25/2012 21-4053-24 / / [id number] Sut Steel 6 M654g - [id number] Implanted:Qty : 1 on 11/01/2010 at OR [facility] N/A: Chest DO NOT USE M654G / / Sut Steel 6 M654g - [id number] Implanted:Qty : 1 on 11/01/2010 at OR [facility] N/A: Chest DO NOT USE M654G / / Valve Tarsha Aortic [id number] - [id number] Implanted:Qty : 1 on 11/01/2010 at OR [facility] N/A: Heart [employer] DANIEL 05/20/2012 2800TFX-25 / / [id number] Mesh Soft [id number] - [id number] Implanted:Qty : 1 on 10/10/2019 by Gigi Hendrickson MD at [place] [facility] N/A: Abdomen CR BARD : DAVOL [id number] 05/21/2024 [id number] / / [id number] Lens 22.5 Sn60wf - [id number] - [id number] Implanted:Qty : 1 on 09/15/2020 by Renaldo Cook, Cece Acosta MD at [facility] Right: Eye IVA : SURGICAL [id number] 05/13/2025 SN60 WF.225 / [id number] / [id number] Lens 21.5 Sn60wf - [id number] - [id number] Implanted:Qty : 1 on 12/19/2023 by Ramsey Burnett DO at OR [facility] Left: Eye IVA : SURGICAL 12/03/2024 SN60WF.2 15 / [id number] / documented as of this encounter [...] patient or by statute hierarchy) Care Teams Borough Coordinator Relationship Specialty Start Date End Date Gregory Rausch MD [address] [place] [address] PCP - General Family Medicine 02/12/20 documented as of this encounter
--- OUTSIDE RECORDS SUMMARY | 2024-06-05 14:47 | External Medical Summary | Summary of Care ---
Author Name Unknown Organization [facility] Address [address] [place] [address] Phone [phone] Care Team Providers Care Commercial Real Estate Assistant Name Role Phone Gregory Rausch MD Primary Care Provider [phone] Reason for Visit * Reason Comments Headache Pt here with care ta ker c/o BONILLA for the past month Encounter Details Date Type Department Care Team (Late st Contact Info) Description 03/17/2024 12:20 PM EDT Office Visit Family Practice [facility] [address] [place] [address] Gregory Rausch MD [address] [facility] [place] [place] [id number] Acute intractable tension-type headache*; Type 2 diabetes mellitus with hemoglobin A1c goal of less than 8.0% ([facility]) Allergies Active Allergy Reactions Criticality Noted Date Comments Adhesive Tape 07/02/2017 Can tolerate band-aids Glycerin Other (Please comment) 03/12/2008 Topical agents with glycein-burning & itching Lactose 12/09/2014 Dairy - gas Lisinopril Cough 01/21/2010 Monosodium Glutamate Edema Other 03/12/2008 Hands and feet Penicillins Rash 11/14/2007 documented as of this encounter (statuses as of 03/17/2024) Medications Medication Sig Dispensed Refills Start Date End Date Status aspirin enteric coated 81 MG TBECIndications:Ao rtic valve disorder Take 1 Tab by mouth daily. 90 Tab 11 9 Active AZO Cranberry 250-30 MG Oral Tablet Take 1 Tablet by mouth in the morning. Active BD Glucose 5 GM Oral Tablet Chewable (Glucose)Indicatio ns:DM type 2, not at goal ([facility] [...] 1 Drop before bedtime. 2.5 mL 1 4 Active Probiotic (Lactobacillus) Oral Capsule Take 2 [...] OTHER MEDICATIONS 90 Tablet 2 4 Active Nystatin 808975 UNIT/GM External Powder (Nystop)Indication s:Candidal intertrigo Apply [...] ns:Heart failure, systolic, due to idiopathic cardiomyopathy ([facility]),S/P aortic valve replacement,HTN, goal below 140/80,Dyslipidemi a, [...] before bedtime. 90 Capsule 5 4 Active Omnipod 5 G6 Intro (Gen 5) Kit Use as directed. Use to delivery insulin via insulin pump 4 Active Fluticasone Propionate 50 MCG/ACT Nasal [...] insulin ([facility]) Inject 36 Units under the skin in the morning. 6 mL 2 4 Active Butalbital-Aspirin -Caffeine 50-325-40 MG Oral Tablet (Fiorinal)Indicati ons:Acute intractable tension-type headache Take 1 Tablet by mouth every 4 hours as needed for Headache for up to 5 days. 30 Tablet 4 03/22/20 24 Active prednisoLONE Acetate 1 % Ophthalmic Suspension (Pred Forte) Instill 1 Drop into both eyes in the morning and 1 Drop at noon and 1 Drop in the evening and 1 Drop before bedtime. 5 mL 1 4 03/17/20 24 Discontinued Fidaxomicin 200 MG Oral Tablet (Dificid)Indicatio ns:Recurrent Clostridium difficile diarrhea Take 1 Tablet by mouth in the morning and 1 Tablet before bedtime. 20 Tablet 4 03/17/20 24 Discontinued documented as of this encounter (statuses as of 03/17/2024) Active Problems Problem Noted Date Diagnosed Date [...] eye 09/28/2020 Coronary artery disease invo lving [place] coronary artery of [place] heart without angina pectoris 12/16/2019 Last Assessment [...] as of this encounter (statuses as of 03/17/2024) Resolved Problems Problem Noted Date Diagnosed Date [...] 12/21/2016 Diabetes mellitus 01/05/2014 12/21/2016 LEYVA RESEARCH OTHER*[id number] 01/05/2014 12/21/2016 Axillary pain 11/03/2013 12/21/2016 Obesity, [...] 09/201008/26/2011 12/21/2016 FOLLOWING SURGERY, UNSPECIFI ED ([facility] 08/25/2011) 08/26/2011 12/21/2016 ADVANCE DIRECTIVE INFORMATION 04/17/2011 12/21/2016 Overview: Yes, Patient instructed to provide copy of advance directive for provider to review and to be scanned into Electronic Medical Record ADVANCE DIRECTIVE INFORMATION 03/01/2011 12/21/2016 Overview: Yes, Patient instructed to provide copy of advance directive for provider to review and to be scanned into Electronic Medical Record [facility] V710 Clinical Trial*[id number] 12/22/2010 04/14/2011 S/P aortic valve replacement 12/01/2010 08/26/2011 S/P AORTIC VALVE REPLACEMENT - #25 pericardial Hernandez valve 11/01/2010 06/28/2018 Overview: Aortic valve replacement with #25 pericardial Hernandez valve, model 2800TFX, serial number [id number] (Dr. Walker) [facility] V710 Clinical Trial*[id number] 10/18/2010 11/21/2010 Type 2 diabetes mellitus wit [...] as of this encounter (statuses as of 03/17/2024) Immunizations Name Administration Dates Next Due COVID-19 mRNA, LNP-s, No Pre serve, 2-Dose Series (Moderna) 10/25/2021,02/16/2021,01/18/2021 HEP A - Hepatitis A (Adult > 18 yrs) 06/07/2018, 12/05/2017 Hepatitis B, 20+ yrs 06/07/2018,01/08/20 18,12/05/2017,06/15,10/27/2013,09/12/2013 Pneumococcal Conjugate Vacci ne, 20-valent ([id number]) 06/22/2023 Pneumococcal Polysaccharide PPV23 (Pneumovax) 01/02/2008 Seasonal [...] Sign Reading Time Taken Comments Blood Pressure 132/72 03/17/2024 12:05 PM EDT Pulse 76 03/17/2024 12:05 PM EDT Temperature 37.7 C (99.8 F) 03/17/2024 12:05 PM E DT Respiratory Rate 18 03/17/2024 12:05 PM EDT Oxygen Saturation - - Inhaled Oxygen Concentration - - Weight 70.3 kg (155 lb) 03/17/2024 12:05 PM EDT Height - - Body Mass Index 31.29 12/19/2023 12:36 PM EDT documented in this encounter Functional Status [...] as of this encounter Progress Notes * Gregory Rausch MD - 03/17/2024 1:04 PM EDT SUBJECTIVE: Jovita Rose is a 63 year old female. 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 She notes that it started when she went off of her metformin due to her diarrhea/c.diff. There are many ongoing issues with medication compliance as well as dietary indiscretions when it comes to her diabetes. Apparently MTM has been trying for over a month to get in touch with her and hasn't been able to talk to patient, or else patient is resistant to treatment. At this juncture I am going to treat her headache acutely and get her back on her metformin. I alsothink she needs to see MTM for CGM evaluation. Patient Active Problem List Diagnosis Dyslipidemia DANYELLE [...] coronary stent placement Schizoaffective disorder, bipolar type ([facility]) Medical marijuana use Coronary artery disease involving [place] coronary artery of [place] heart without angina pectoris Cystoid macular edema of right eye Type 2 diabetes mellitus with stage 3a chronic kidney disease, with long-term current use of insulin ([facility]) Type 2 diabetes mellitus with hemoglobin A1c goal of less than 8.0% ([facility]) Type 2 diabetes mellitus with diabetic peripheral angiopathy without gangrene ([facility]) Obesity, Class I, BMI 30.0-34.9 (see actual BMI) Thrombocytopenia ([facility]) Hypertensive kidney disease with stage 3a chronic kidney disease ([facility]) Recurrent Clostridium difficile diarrhea Current Outpatient Medications Medication Sig Dispense Refill aspirin enteric coated 81 MG TBEC Take 1 Tab by mouth daily. 90 Tab 11 AZO Cranberry 250-30 MG Oral Tablet Take 1 Tablet by mouth in the morning. Melatonin 10 MG Oral Capsule Take 1 [...] 2 Capsules by mouth in the morning. Potassium Chloride Shannon ER 10 MEQ Oral Tablet Extended Release Take 1 Tablet by mouth in the morning and 1 Tablet before bedtime. 180 Tablet 3 Clopidogrel Bisulfate 75 MG Oral Tablet (pLAVix) Take 1 Tablet by mouth in the morning. 90 Tablet 2 Levothyroxine Sodium 75 MCG Oral Tablet (Levoxyl) TAKE 1 TAB BY MOUTH DAILY FIRST THING IN AM, AT LEAST 30 MIN PRIOR TO BREAKFAST OR OTHER MEDICATIONS 90 Tablet 2 Nystatin 745184 UNIT/GM External Powder (Nystop) Apply topically to [...] skin in the morning. 6 mL 2 Krazimiuli-Odmjirf-Jugohnag 50-325-40 MG Oral Tablet (Fiorinal) Take 1 Tablet by mouth every 4 hours as needed for Headache for up to 5 days. 30 Tablet 0 BD Glucose 5 GM Oral Tablet Chewable (Glucose) 3 every 15 minutes until glucose is > 100 mg/dL for hypoglycemia E11.9 100 Tab 3 OneTouch Verio w/Device Kit Use up to 4 times a day E11.9 1 Kit 0 LelaTouch Delica Lancets 33G TEST 4 TIMES DAILY DIRECTED, E11.9 400 Each 3 Diclofenac Sodium 0.1 % Ophthalmic Solution (Voltaren) Instill 1 Drop into the left eye in the morning and 1 Drop at noon and 1 Drop in the evening and 1 Drop before bedtime. 2.5 mL 1 OneTouch Verio In Vitro Strip (Glucose Blood) Use up to 4 times a day E11.9 100 Strip 11 BD Pen Needle Short U/F 31G X 8 MM Use with insulin 4 times daily 400 Each 3 BD Insulin Syringe 25G X 1" 1 ML (Insulin Syringe-Needle U-100) Use daily with omnipod as directed DX E11.9 100 Each 5 Curity Alcohol Swabs Pad Use as directed as needed 200 Each 5 Aquaphor External Ointment Apply topically to affected area as needed for Dry Skin. Apply to face 420 g 0 Omnipod 5 G6 Intro (Gen 5) Kit Use as directed. Use to delivery insulin via insulin pump No current facility-administered medications for this visit. Allergy: Review of patient's allergies indicates: Allergen Reactions Adhesive Tape Can tolerate band-aids Glycerin Other (Please comment) Topical agents with glycein-burning & itching Lactose Dairy - gas Lisinopril Cough Monosodium Glutamate Edema Other Hands and feet Pcn [Penicillins] Rash OBJECTIVE: BP 132/72 | Pulse 76 | Temp 37.7 C (99.8 F) (Tympanic) | Resp 18 | Wt 70.3 kg (155 lb) | LMP 04/07/2011 | BMI 31.29 kg/m | BSA 1.71 m Gen: aao x 3, nad Neuro: non-focal exam Eyes: perrla/eomi Lungs: ctab Heart: rrr/no mrg ASSESSMENT AND PLAN: (G44.201) Acute intractable tension-type headache (primary encounter diagnosis) Plan: Xubwlexevr-Lmbljzo-Hpbxmubz 50-325-40 MG Oral Tablet (Fiorinal) -okay for short term use to ablate headache (E11.9) Type 2 diabetes mellitus with hemoglobin A1c goal of less than 8.0% ([facility]) Plan: restart metformin which she had been off of Follow up as needed. No other complaints were offered at this time. Gregory Rausch MD documented in this encounter Nursing Notes * Gayle Duncan LPN - 03/17/2024 12:05 PM EDT The patient has been properly identified by confirmation of name and date of . Chief Complaint Patient presents with Headache Pt here with acute care physician c/o BONILAL for the past month documented in this encounter Plan of Treatment Upcoming Encounters Date Type Department Care Team (Late st Contact Info) Description 03/24/2024 11:00 AM EDT Office Visit Sleep Disorders Ctr [facility] [address] [facility] [place] [phone] Christina Birch, DO [address] [place] [address] 03/25/2024 10:00 AM EDT Home Visit [facility] [place] [address] [place] [address] Jaycee Sorto RN [address] [facility] [place] [address] 06/03/2024 9:00 AM EDT Telemedicine Psychiatry [place] [address] [place] [address] Janice Atwood MD [address] [place] [address] 07/17/2024 9:30 AM EDT Office Visit Cardiology, [facility] [address] [place] [address] Roberto Carlos Muniz, DO [address] [place] [address] 08/12/2024 9:20 AM EST Office Visit Family Practice [facility] [address] [place] [address] Gregory Rausch MD [address] [place] [address] 11/27/2024 9:40 AM EST Office Visit Nephrology, [facility] [address] [place] [address] Fidelina Buamann MD [address] [facility] [place] [address] Scheduled Procedures Name Priority Associated Diagnoses Date/Ti [...] Scan 12/18/2023 01/12/2009 CKD PHOS USE SMARTSET 55507 06/18/202405/26, 06/16/2023, 06/15/2023, Additional history exists GFR 07/09/2024 01/08/2024, 09/25, 08/02/2023, Additional history exists HbA1c 08/01/2024 01/30/2024, 08/25, 07/31/2023, Additional history exists Diabetic Eye Exam 09/13/2024 09/13/2023, , 09/13/2023, Additional history exists B-12 09/18/2024 09/18/2023, 08/24, 2020, Additional history exists Depression Monitoring 12/24/2024 12/25/2023 Albumin/Creatinine Ratio 01/07/2025 024, 03/09/2023, 12/22/2022, Additional history exists CKD HGB USE SMARTSET 30142 01/07/202501/07, 01/08/2024, 10/15/2023, Additional history exists TSH [...] this encounter Medical Devices Implanted Type Area Staff Research Associate Device Identifier Shelf Expiration Date Model / Serial / Lot Cath Roselia Single Lumen - [id number] Implanted:Qty : 1 on 03/12/2008 at OR [facility] Left: Chest [facility] *DO NOT USE* 07/25/2012 21-4053-24 / / [id number] Sut Steel 6 M654g - [id number] Implanted:Qty : 1 on 11/01/2010 at OR [facility] N/A: Chest DO NOT USE M654G / / Sut Steel 6 M654g - [id number] Implanted:Qty : 1 on 11/01/2010 at OR [facility] N/A: Chest DO NOT USE M654G / / Valve Tarsha Aortic [id number] - [id number] Implanted:Qty : 1 on 11/01/2010 at OR [facility] N/A: Heart [employer] DANIEL 05/20/2012 [id number]-25 / / [id number] Mesh Soft [id number] - [id number] Implanted:Qty : 1 on 10/10/2019 by Gigi Hendrickson MD [place] [facility] [place]/A: Abdomen CR BARD : DAVOL [id number] 05/21/2024 [id number] / / [id number] Lens 22.5 Sn60wf - [id number] - [id number] Implanted:Qty : 1 on 09/15/2020 by Renaldo Cook, Cece Acosta MD at OR [facility] Right: Eye IVA : SURGICAL [id number] 05/13/2025 SN60 WF.225 / [id number] / [id number] Lens 21.5 Sn60wf - [id number] - [id number] Implanted:Qty : 1 on 12/19/2023 by Ramsey Burnett DO at OR [facility] Left: Eye IVA : SURGICAL 12/03/2024 SN60WF.2 15 / [id number] / documented as of this encounter Visit Diagnoses Diagnosis Acute intractable tension-type headache- Primary Type 2 diabetes mellitus with hemoglobin A1c goal of less than 8.0% ([facility]) documented in this encounter Advance Directives [...] or by statute hierarchy) Care Teams Commercial Real Estate Assistant Relationship Specialty Start Date End Date Gregory Rausch MD [address] [place] [address] PCP - General Family Medicine 02/12/20 documented as of this encounter
--- OUTSIDE RECORDS SUMMARY | 2024-06-05 14:47 | External Medical Summary | Summary of Care ---
Author Name Unknown Organization [facility] Address [address] [place] [address] Phone [phone] Care Team Providers Care Tank Car Repairer Name Role Phone Gregory Rausch MD Primary Care Provider [phone] Reason for Visit * Reason Onset Date Comments Home Health 03/13/2024 Encounter Details Date Type Department Care Team (Late st Contact Info) Description 03/13/2024 Telephone Family Practice [facility] [address] [place] [address] Gregory Rausch MD [address] [facility] [place] [address] Home Health Allergies Active Allergy Reactions Criticality Noted Date Comments Adhesive Tape 07/02/2017 Can tolerate band-aids Glycerin Other (Please comment) 03/12/2008 Topical agents with glycein-burning & itching Lactose 12/09/2014 Dairy - gas Lisinopril Cough 01/21/2010 Monosodium Glutamate Edema Other 03/12/2008 Hands and feet Penicillins Rash 11/14/2007 documented as of this encounter (statuses as of 03/14/2024) Medications Medication Sig Dispensed Refills Start Date End Date Status aspirin enteric coated 81 MG TBECIndications:Ao rtic valve disorder Take 1 Tab by mouth daily. 90 Tab 11 09/30/19 19 Active AZO Cranberry 250-30 MG Oral Tablet Take 1 Tablet by mouth in the morning. Active BD Glucose 5 GM Oral Tablet Chewable (Glucose)Indicatio ns:DM type 2, not at goal ([facility]) 3 every 15 minutes until glucose is [...] 1 Drop before bedtime. 5 mL 1 01/03/20 24 Active Diclofenac Sodium 0.1 % Ophthalmic Solution (Voltaren) Instill 1 Drop into the left eye in the morning and 1 Drop at noon and 1 Drop in the evening and 1 Drop before bedtime. 2.5 mL 1 01/03/20 24 Active Probiotic (Lactobacillus) Oral Capsule Take 2 [...] daily 400 Each 3 01/10/20 24 Active Clopidogrel Bisulfate 75 MG Oral Tablet (pLAVix) Take 1 Tablet by mouth in the morning. 90 Tablet 2 01/10/20 24 Active Levothyroxine Sodium 75 MCG Oral Tablet (Levoxyl)Indicatio ns:Hypothyroidism TAKE 1 TAB BY MOUTH DAILY FIRST THING IN AM, AT LEAST 30 MIN PRIOR TO BREAKFAST OR OTHER MEDICATIONS 90 Tablet 2 01/10/20 24 Active Nystatin 626576 UNIT/GM External Powder (Nystop)Indication s:Candidal intertrigo Apply topically to affected area 3 times a day. Apply to affected areas 60 g 1 01/10/20 24 Active Aquaphor External Ointment Apply [...] ns:Heart failure, systolic, due to idiopathic cardiomyopathy ([facility]),S/P aortic valve replacement,HTN, goal below 140/80,Dyslipidemi a, [...] bedtime. 60 Tablet 5 01/10/20 24 Active Fidaxomicin 200 MG Oral Tablet (Dificid)Indicatio ns:Recurrent Clostridium difficile diarrhea Take 1 Tablet by mouth in the morning and 1 Tablet before bedtime. 20 Tablet 02/04/20 24 Active Gabapentin 300 MG Oral Capsule (Neurontin) Take 1 Capsule by mouth in the morning and 1 Capsule at noon and 1 Capsule before bedtime. 90 Capsule 5 02/04/20 24 Active Omnipod 5 G6 Intro (Gen 5) Kit Use as directed. Use to delivery insulin via insulin pump 02/04/20 24 Active Fluticasone Propionate 50 MCG/ACT Nasal Suspension (Flonase)Indicatio ns:Dizziness Administer 2 Sprays into each nostril in the morning. 16 g 3 02/07/20 24 Active Saccharomyces boulardii 250 MG Oral Capsule (Florastor) Take 1 Capsule by mouth in the morning and 1 Capsule before bedtime. 60 Capsule 02/07/20 24 Active Magnesium Oxide -Mg Supplement [...] of insulin ([facility]) Inject 36 Units under the skin in the morning. 6 mL 2 03/14/20 24 Active BD Insulin Syringe 25G X 1" 1 ML (Insulin Syringe-Needle U-100) Use daily with omnipod as directed DX E11.9 100 Each 09/20/20 23 024 Discontinued(Re fill) Curity Alcohol Swabs Pad Use as directed as needed 200 Each 09/20/20 23 024 Discontinued(Re fill) Tresiba FlexTouch 200 UNIT/ML Subcutaneous Solution Pen-injector (Insulin Degludec)Indicatio ns:Type 2 diabetes mellitus with hemoglobin A1c goal of less than 7.0% ([facility]),Type 2 diabetes mellitus with stage 3a chronic kidney disease, with long-term current use of insulin ([facility]) Inject 30 Units under the skin in the morning. 6 mL 2 01/10/20 24 024 Discontinued documented as of this encounter (statuses as of 03/14/2024) Active Problems Problem Noted Date Diagnosed Date [...] eye 09/28/2020 Coronary artery disease invo lving [place] coronary artery of [place] heart without angina pectoris 12/16/2019 Last Assessment [...] as of this encounter (statuses as of 03/14/2024) Resolved Problems Problem Noted Date Diagnosed Date [...] 12/21/2016 Diabetes mellitus 01/05/2014 12/21/2016 LEYVA RESEARCH OTHER*[id number] 01/05/2014 12/21/2016 Axillary pain 11/03/2013 12/21/2016 Obesity, [...] cath 09/201008/26/2011 12/21/2016 FOLLOWING SURGERY, UNSPECIFI ED ([facility]SO 08/25/2011) 08/26/2011 12/21/2016 ADVANCE DIRECTIVE [...] [facility] V710 Clinical Trial*[id number] 12/22/2010 04/14/2011 S/P aortic valve replacement 12/01/2010 08/26/2011 S/P AORTIC VALVE REPLACEMENT - #25 pericardial Mc valve 11/01/2010 06/28/2018 Overview: Aortic valve replacement with #25 pericardial Mc valve, model 2800TFX, serial number [id number] (Dr. Walker) [facility] V710 Clinical Trial*[id number] 10/18/2010 11/21/2010 Type 2 diabetes mellitus wit [...] as of this encounter (statuses as of 03/14/2024) Immunizations Name Administration Dates Next Due COVID-19 mRNA, LNP-s, No Pre serve, 2-Dose Series (Moderna) 10/25/2021,02/16/2021,01/18/2021 HEP A - Hepatitis A (Adult > 18 yrs) 06/07/2018, 12/05/2017 Hepatitis B, 20+ yrs 06/07/2018,01/08/20 18,12/05/2017,06/15,10/27/2013,09/12/2013 Pneumococcal Conjugate Vacci ne, 20-valent ([id number]) 06/22/2023 Pneumococcal Polysaccharide PPV23 (Pneumovax) 01/02/2008 Seasonal [...] encounter Miscellaneous Notes * Addendum Note - Scooby Amos RP - 03/14/2024 9:36 AM EDT Addended by: SCOOBY AMOS on: 03/14/2024 09:36 AM Modules accepted: Orders * Telephone Encounter - Scooby Amos [facility] - 03/14/2024 9:29 AM EDT Patient Phone Numbers Current diabetic medications: Tresiba 30 units once daily Ozempic 2mg every Sunday Metformin 1000mg twice daily (On Hold) Novolog CF 2/50 over 200 (Flextouch pen) - give before every meal) Spoke to patient in regard to elevated BG readings. Pt agreeable to increase tresiba to 36 units. Additionally Patient is still waiting on dexcom G6 transmitter so that we can schedule her pump start. Diabetic medications Changes: INC: Tresiba 36 units once daily Ozempic 2mg every Sunday Metformin 1000mg twice daily (On Hold) Novolog CF 2/50 over 200 (Flextouch pen) - give before every meal) Scooby Amos, PharmD, BCACP, [facility] Clinical Pharmacist 03/14/2024, 9:35 AM * Telephone Encounter - Scooby Amos [facility] - 03/13/2024 3:26 PM EDT [facility] has attempted to schedule to [...] omnipod V start for the second time. Scooby Amos PharmD, AIDENCP, [facility] Clinical Pharmacist 03/13/2024, 3:31 PM * Telephone Encounter - Fang Cisneros [facility] - 03/13/2024 3:14 PM EDT Forwarding to SP who has been following patient most recently. Fang Cisneros, Pharm D, AIDEN Clinical Pharmacist 03/13/2024, 3:14 PM * Telephone Encounter - Ibeth Lopez LPN - 03/13/2024 2:14 PM EDT Home Health Concern: Nataly RN, Calling from: [facility] Report/Concerns of:BS Symptoms: none Vitals: Temp 98.2 [...] Tresiba because caregiver administers these for patient. Natayl feels that patient is not compliant with [...] She did not have the Omnipod 5 gericare aide teacher nor a Dexcom G6 transmitter so we were unable to start anything today. She is to look for her Dexcom G6 gericare aide teacher and Omnipod 5 gericare aide teacher at home and if found she is to call the clinic to arrange start of G6 and/or Omnipod 5. Steph is shipping her Dexcom supplies today. I am waiting for a reply from Omnipod Asad Berger tosee about getting a replacement gericare aide teacher. I also asked about Dexcom G7 compatible pods since the patient has G7 cgms and gericare aide teacher. Once all the supplies needed are available I will reschedule her start. MTM TE 02/27: Spoke to patient ans she received a box with 3 sensors. She still has no transmitter or reader. Shestated her daughter is going to call Steph to clarify what she needs. Neeraj Romero, [facility], [facility] Clinical Pharmacist [facility] 02/28/2024, 4:25 PM Also noted in chart that patient called in regarding headaches x 3 weeks on 03/11 She was advised to schedule an appt but no return appts available until 04/24 and patient advised to go to Called patient and she did not go to UC for her headaches Advised patient that her [...] to send TE to Dr. Rausch AND GARY to see if there is advice for patient until that appt. Sent message to PCP, MTM and G@H Call back Nataly with advice or orders at [phone] * Telephone Encounter - Shantal Van OSA - 03/13/2024 2:10 PM EDT Elevated blood sugars for the past day, wanted to speak with a nurse transferred to [facility] nurse documented in this encounter Plan of Treatment Upcoming Encounters Date Type Department Care Team (Late st Contact Info) Description 03/17/2024 12:20 PM EDT Office Visit Family Practice [facility] [address] [address] Gregory Rausch MD [address] [place] [address] 03/24/2024 11:00 AM EDT Office Visit Sleep Disorders Ctr [facility] [address] [phone] Christina Birch DO [address] [place] [address] 03/25/2024 10:00 AM EDT [facility] Visit [facility] [address] [address] Jaycee Sorto, RN [address] [place] [address] 06/03/2024 9:00 AM EDT Telemedicine Psychiatry Cris Mercedes [address] [place] [phone] Janice Atwood MD [address] [place] [address] 07/17/2024 9:30 AM EDT Office Visit Cardiology, [facility] [address] [place] [address] Roberto Carlos Muniz, [address] [place] [address] 08/12/2024 9:20 AM EST Office Visit Family Practice [facility] [address] [place] [address] Gregory Rausch MD [address] [place] [address] 11/27/2024 9:40 AM EST Office Visit Nephrology, [facility] [address] [facility] [place] [address] Fidelina Baumann MD [address] [facility] [place] [address] Scheduled Procedures Name Priority Associated Diagnoses Date/Ti [...] Scan 12/18/2023 01/12/2009 CKD PHOS USE SMARTSET 77868 06/18/202405/26, 06/16/2023, 06/15/2023, Additional history exists GFR 07/09/2024 01/08/2024, 09/25, 08/02/2023, Additional history exists HbA1c 08/01/2024 01/30/2024, 08/25, 07/31/2023, Additional history exists Diabetic Eye Exam 09/13/2024 09/13/2023, , 09/13/2023, Additional history exists B-12 09/18/2024 09/18/2023, 08/24, 2020, Additional history exists Depression Monitoring 12/24/2024 12/25/2023 Albumin/Creatinine Ratio 01/07/2025 024, 03/09/2023, 12/22/2022, Additional history exists CKD HGB USE SMARTSET 59625 01/07/202501/07, 01/08/2024, 10/15/2023, Additional history exists TSH [...] this encounter Medical Devices Implanted Type Area Incendiary Powder Mixer Device Identifier Shelf Expiration Date Model / Serial / Lot Cath Roselia Single Lumen - [id number] Implanted:Qty : 1 on 03/12/2008 at OR [facility] Left: Chest [employer] *DO NOT USE* 07/25/2012 21-4053-24 / / [id number] Sut Steel 6 M654g - [id number] Implanted:Qty : 1 on 11/01/2010 at OR [facility] N/A: Chest DO NOT USE M654G / / Sut Steel 6 M654g - [id number] Implanted:Qty : 1 on 11/01/2010 at OR [facility] N/A: Chest DO NOT USE M654G / / Valve Tarsha Aortic [id number] - [id number] Implanted:Qty : 1 on 11/01/2010 at OR [facility] N/A: Heart [employer] DANIEL 05/20/2012 2800TFX-25 / / [id number] Mesh Soft [id number] - [id number] Implanted:Qty : 1 on 10/10/2019 by Gigi Hendrickson MD at [place] [facility] [place]/A: Abdomen CR BARD : DAVOL [id number] 05/21/2024 [id number] / / [id number] Lens 22.5 Sn60wf - [id number] - [id number] Implanted:Qty : 1 on 09/15/2020 by Renaldo Cook, Cece Acosta MD at OR [facility] Right: Eye IVA : SURGICAL [id number] 05/13/2025 SN60 WF.225 / [id number] / [id number] Lens 21.5 Sn60wf - [id number] - [id number] Implanted:Qty : 1 on 12/19/2023 by Ramsey Burnett DO at OR [facility] Left: Eye IVA : SURGICAL 12/03/2024 SN60WF.2 15 / [id number] / documented as of this encounter [...] patient or by statute hierarchy) Care Teams Tank Car Repairer Relationship Specialty Start Date End Date Gregory Rausch MD [address] [place] [address] PCP - General Family Medicine 02/12/20 documented as of this encounter
--- OUTSIDE RECORDS SUMMARY | 2024-06-05 14:47 | External Medical Summary | Summary of Care ---
Author Name Unknown Organization [facility] Address [address] [place] [address] Phone [phone] Care Team Providers Care Recreation Establishment Manager Name Role Phone Deon Rausch MD Primary Care Provider [phone] Reason for Visit * Reason Onset Date Comments Medication Refill 01/09/2024 Encounter Details Date Type Department Care Team (Late st Contact Info) Description 01/09/2024 [facility] [place] [facility] [place] [address] Deon Rausch MD [address] [facility] [place] [address] Allergies Active Allergy Reactions Criticality Noted Date [...] Capsules by mouth in the morning. Active Tresiba FlexTouch 200 UNIT/ML Subcutaneous Solution Pen-injector (Insulin Degludec)Indicatio ns:Type 2 diabetes mellitus with hemoglobin A1c goal of less than 7.0% ([facility]),Type 2 diabetes mellitus with stage 3a chronic kidney disease, with long-term current use of insulin ([facility]) Inject 30 Units under the skin in the morning. 6 mL 2 01/10/20 24 Active BD Pen Needle Short U/F [...] omnipod as directed DX E11.9 100 Each 03/14/20 24 Active Curity Alcohol Swabs Pad [...] 90 Tablet 2 01/10/20 24 Active Nystatin 211275 UNIT/GM External Powder (Nystop)Indication s:Candidal intertrigo Apply [...] to both feet once daily. 400 g 01/10/20 24 Active Atorvastatin Calcium 40 MG [...] bedtime. 60 Tablet 5 01/10/20 24 Active Omnipod 5 G6 Pod (Gen 5) Use as directed. Use 1 pod every 3 days 30 Each 3 01/12/20 23 024 Discontinued Omnipod 5 G6 Intro (Gen 5) Kit Use as directed. Use to delivery insulin via insulin pump 1 Kit 01/12/20 024 Discontinued [employer] In Vitro Strip (Glucose Blood) Use up to 4 times a day E11.9 100 Strip 11 07/26/20 024 Discontinued(Re fill) Potassium Chloride Shannon ER 10 MEQ Oral Tablet Extended ReleaseIndications :Acute on chronic heart failure with preserved ejection fraction (HFpEF) (HCC) Take 1 Tablet by mouth in the morning and 1 Tablet before bedtime. 180 Tablet 3 07/26/20 024 Discontinued(Re fill) Venelex External Ointment Apply topically to affected area 2 times a day. 06/29/20 024 Discontinued metFORMIN HCl 1000 MG Oral Tablet (Glucophage) Take 1 Tablet by mouth 2 times a day with morning and evening meals. 180 Tablet 3 08/31/20 024 Discontinued Insulin Aspart 100 UNIT/ML Injection Solution (NovoLOG)Indicatio ns:Type 2 diabetes mellitus with hemoglobin A1c goal of less than 7.0% ([facility]) Use up to 50 units per day in Omnipod. 5 Each 3 09/11/20 024 Discontinued BD Insulin Syringe 25G X 1" 1 ML (Insulin Syringe-Needle U-100) Use daily with omnipod as directed DX E11.9 100 Each 5 09/20/20 23 024 Discontinued(Re fill) Curity Alcohol Swabs Pad Use as directed as needed 200 Each 09/20/20 024 Discontinued(Re fill) Dexcom G6 TransmitterIndicat ions:Type 2 diabetes mellitus with hemoglobin A1c goal of less than 7.0% ([facility]) Use as directed. Use 1 transmitter every 90 days E 11.9 1 Each 3 10/18/19 24 024 Discontinued Dexcom G6 SensorIndications: Type 2 diabetes mellitus with hemoglobin A1c goal of less than 7.0% ([facility]) Use as directed. Use 1 sensor every 10 days E 11.9 9 Each 3 10/18/19 24 024 Discontinued Fluticasone Propionate 50 MCG/ACT Nasal Suspension (Flonase)Indicatio ns:Dizziness Administer 2 Sprays into each nostril in the morning. 16 g 3 01/09/20 24 024 Discontinued(Re fill) Magnesium Oxide -Mg Supplement 400 (240 Mg) MG Oral Tablet (Mag-Ox)Indication s:HTN, goal below 130/80 One tablet by mouth daily in the morning 90 Tablet 3 01/10/20 24 024 Discontinued(Re fill) Gabapentin 100 MG Oral Capsule (Neurontin)Indicat ions:Polyneuropath y associated with underlying disease ([facility]) TAKE 1 CAPSULE BY MOUTH EVERY DAY IN THE MORNING , AT NOON, AND BEFORE BEDTIME 90 Capsule 2 01/10/20 24 024 Discontinued(Di radha) documented as of this encounter (statuses as [...] eye 09/28/2020 Coronary artery disease invo lving [place] coronary artery of [place] heart without angina pectoris 12/16/2019 Last Assessment [...] 02/19/2014 Last Assessment & Plan: Continue Synthroid DNAYELLE on CPAP 10/31/2010 Dyslipidemia 11/14/2007 Overview: Per [...] 12/21/2016 Diabetes mellitus 01/05/2014 12/21/2016 LEYVA RESEARCH OTHER*[id number] 01/05/2014 12/21/2016 Axillary pain 11/03/2013 12/21/2016 Obesity, [...] to be scanned into Electronic Medical Record [facility] V710 Clinical Trial*[id number] 12/22/2010 04/14/2011 S/P aortic valve replacement 12/01/2010 08/26/2011 S/P AORTIC VALVE REPLACEMENT - #25 pericardial Mc valve 11/01/2010 06/28/2018 Overview: Aortic valve replacement with #25 pericardial Mc valve, model 2800TFX, serial number [id number] (Dr. Walker) [facility] V710 Clinical Trial*[id number] 10/18/2010 11/21/2010 Type 2 diabetes mellitus wit [...] 06/07/2018,01/08/20 18,12/05/2017,06/15,10/27/2013,09/12/2013 Pneumococcal Conjugate Vacci ne, 20-valent ([id number]) 06/22/2023 Pneumococcal Polysaccharide PPV23 (Pneumovax) 01/02/2008 Seasonal [...] Telephone Encounter - Deon Rausch MD - 03/14/2024 9:18 AM EDTSigned Prescriptions: Disp Refills BD Insulin Syringe 25G X 1" 1 ML (Insulin *100 Ea*5 Sig: Use daily with omnipod as directed DX E11.9 Authorizing Provider: DEON RAUSCH Curity Alcohol Swabs Pad 200 Ea*5 Sig: Use as directed as needed Authorizing Provider: DEON RAUSCH --- * Telephone Encounter - Shilpa Tadeo RN - 03/14/2024 7:30 AM EDTPending Prescriptions: Disp Refills BD Insulin Syringe 25G X 1" 1 ML (Insulin *100 Ea*5 Sig: Use daily with omnipod as directed DX E11.9 Curity Alcohol Swabs Pad 200 Ea*5 Sig: Use as directed as neede d documented in this encounter Plan of Treatment Upcoming Encounters Date Type Department Care Team (Late st Contact Info) Description 03/17/2024 12:20 PM EDT Office Visit Family Practice [facility] [address] [address] Deon Rausch MD [address] [address] 03/24/2024 11:00 AM EDT Office Visit Sleep Disorders Ctr [facility] [address] [phone] Christina Birch DO [address] [address] 03/25/2024 10:00 AM EDT Home Visit [facility] [address] [address] Macario, Jaycee H, RN [address] [place] [address] 06/03/2024 9:00 AM EDT Telemedicine Psychiatry [facility] [place] [address] [place] [phone] Janice Atwood MD [address] [place], [place] [id number] 07/17/2024 9:30 AM EDT Office Visit Cardiology, [facility] [address] [place] [address] Roberto Carlos Muniz DO [address] [place] [address] 08/12/2024 9:20 AM EST Office Visit Family Practice [facility] [address] [place] [facility] [address] Deon Rausch MD [address] [place] [address] 11/27/2024 9:40 AM EST Office Visit Nephrology, [facility] [address] [facility] [place] [address] Fidelina Baumann MD [address] [facility] [address] Scheduled Procedures Name Priority Associated Diagnoses Date/Ti [...] Scan 12/18/2023 01/12/2009 CKD PHOS USE SMARTSET 34343 06/18/202405/26, 06/16/2023, 06/15/2023, Additional history exists GFR 07/09/2024 01/08/2024, 09/25, 08/02/2023, Additional history exists HbA1c 08/01/2024 01/30/2024, 08/25, 07/31/2023, Additional history exists Diabetic Eye Exam 09/13/2024 09/13/2023, , 09/13/2023, Additional history exists B-12 09/18/2024 09/18/2023, 08/24, 2020, Additional history exists Depression Monitoring 12/24/2024 12/25/2023 Albumin/Creatinine Ratio 01/07/2025 024, 03/09/2023, 12/22/2022, Additional history exists CKD HGB USE SMARTSET 83683 01/07/202501/07, 01/08/2024, 10/15/2023, Additional history exists TSH [...] this encounter Medical Devices Implanted Type Area Combination Man Device Identifier Shelf Expiration Date Model / Serial / Lot Cath Roselia Single Lumen - [id number] Implanted:Qty : 1 on 03/12/2008 at OR [facility] Left: Chest [employer] *DO NOT USE* 07/25/2012 21-4053-24 / / [id number] Sut Steel 6 M654g - [id number] Implanted:Qty : 1 on 11/01/2010 at OR [facility] N/A: Chest DO NOT USE M654G / / Sut Steel 6 M654g - [id number] Implanted:Qty : 1 on 11/01/2010 at OR [facility] N/A: Chest DO NOT USE M654G / / Valve Tarsha Aortic [id number] - [id number] Implanted:Qty : 1 on 11/01/2010 at OR [facility] N/A: Heart [employer] DANIEL 05/20/2012 2800TFX-25 / / [id number] Mesh Soft 13t42ec - [id number] Implanted:Qty : 1 on 10/10/2019 by Gigi Hendrickson MD [place] [facility] [place]A: Abdomen CR BARD : DAVOL [id number] 05/21/2024 [id number] / / [id number] Lens 22.5 Sn60wf - [id number] - [id number] Implanted:Qty : 1 on 09/15/2020 by Cece Roland MD at OR [facility] Right: Eye IVA : SURGICAL [id number] 05/13/2025 SN60 WF.225 / [id number] / [id number] Lens 21.5 Sn60wf - [id number] - [id number] Implanted:Qty : 1 on 12/19/2023 by Ramsey Burnett DO at [facility] Left: Eye IVA : SURGICAL 12/03/2024 SN60WF.2 15 / [id number] / documented as of this encounter Additional Health Concerns Infection Onset Date Last Indicated Resolved Time Respiratory Rule-Out 02/13/2024 02/13/2024 024 6:54 PM EDT Parainfluenza Virus 02/13/2024 02/13/2024 03/05/20 24 12:18 AM EDT documented as of this encounter [...] patient or by statute hierarchy) Care Teams Recreation Establishment Manager Relationship Specialty Start Date End Date Deon Rausch MD [address] [address] PCP - General Family Medicine 02/12/20 documented as of this encounter
--- OUTSIDE RECORDS SUMMARY | 2024-06-05 14:47 | External Medical Summary | Summary of Care ---
Author Name Unknown Organization [facility] Address [address] [place] [address] Phone [phone] Care Team Providers Care Tooling Manager Name Role Phone Gregory Rausch MD Primary Care Provider [phone] Reason for Visit * Reason Onset Date Comments Advice 03/19/2024 Home Health 03/19/2024 Encounter Details Date Type Department Care Team (Late st Contact Info) Description 03/19/2024 [facility]phone [facility] [address] Gregory Rausch MD [address] [place] [address] Advice; Home Health (/) Allergies Active Allergy Reactions Criticality Noted Date Comments Adhesive Tape 07/02/2017 Can tolerate band-aids Glycerin Other (Please comment) 03/12/2008 Topical agents with glycein-burning & itching Lactose 12/09/2014 Dairy - gas Lisinopril Cough 01/21/2010 Monosodium Glutamate Edema Other 03/12/2008 Hands and feet Penicillins Rash 11/14/2007 documented as of this encounter (statuses as of 03/19/2024) Medications Medication Sig Dispensed Refills Start Date End Date Status aspirin enteric coated 81 MG TBECIndications:Aort ic valve disorder Take 1 Tab by mouth daily. 90 Tab 11 09/30/2018 Active AZO Cranberry 250-30 MG Oral Tablet Take 1 Tablet by mouth in the morning. Active BD Glucose 5 GM Oral Tablet Chewable (Glucose)Indications :DM type 2, not at goal ([place] [...] OTHER MEDICATIONS 90 Tablet 01/10/2024 Active Nystatin 310823 UNIT/GM External Powder (Nystop)Indications: Candidal intertrigo Apply [...] the morning. 6 mL 2 03/14/2024 Active Sgzrrugnvd-Gpmjwgr-R affeine 50-325-40 MG Oral Tablet (Fiorinal)Indication s:Acute intractable tension-type headache Take 1 Tablet by mouth every 4 hours as needed for Headache for up to 5 days. 30 Tablet 03/17/2024 4 Active documented as of this encounter (statuses as of 03/19/2024) Active Problems Problem Noted Date Diagnosed Date [...] as of this encounter (statuses as of 03/19/2024) Resolved Problems Problem Noted Date Diagnosed Date [...] loss, bilateral 10/01/2014 12/21/2016 Subjective tinnitus 10/01/2014 03/30/20 17 Severe obesity with body mas s index (BMI) of 35.0 to 39.9 with serious comorbidity 09/04/2014 Overview: ICD-10 update of inactive diagnosis Pure hyperglyceridemia 06/22/201412/21 DM type 2, goal: symptom mgmt 02/19/2014 12/21/2016 Diabetes mellitus 01/05/2014 12/21/2016 LEYVA RESEARCH OTHER*[id number] 01/05/2014 12/21/2016 Axillary pain 11/03/2013 12/21/2016 Obesity, [...] 09/201008/26/2011 12/21/2016 FOLLOWING SURGERY, UNSPECIFI ED ([facility] BSO 08/25/2011) 08/26/2011 12/21/2016 ADVANCE DIRECTIVE INFORMATION 04/17/2011 12/21/2016 Overview: Yes, Patient instructed to provide copy of advance directive for provider to review and to be scanned into Electronic Medical Record ADVANCE DIRECTIVE INFORMATION 03/01/2011 12/21/2016 Overview: Yes, Patient instructed to provide copy of advance directive for provider to review and to be scanned into Electronic Medical Record [facility] V710 Clinical Trial*[id number] 12/22/2010 04/14/2011 S/P aortic valve replacement 12/01/2010 08/26/2011 S/P AORTIC VALVE REPLACEMENT - #25 pericardial Hernandez valve 11/01/2010 06/28/2018 Overview: Aortic valve replacement with #25 pericardial Hernandez valve, model 2800TFX, serial number [id number] (Dr. Walker) [facility] V710 Clinical Trial*[id number] 10/18/2010 11/21/2010 Type 2 diabetes mellitus wit [...] as of this encounter (statuses as of 03/19/2024) Immunizations Name Administration Dates Next Due COVID-19 mRNA, LNP-s, No Pre serve, 2-Dose Series (Moderna) 10/25/2021,02/16/2021,01/18/2021 HEP A - Hepatitis A (Adult > 18 yrs) 06/07/2018, 12/05/2017 Hepatitis B, 20+ yrs 06/07/2018,01/08/20 18,12/05/2017,06/15,10/27/2013,09/12/2013 Pneumococcal Conjugate Vacci ne, 20-valent ([id number]) 06/22/2023 Pneumococcal Polysaccharide PPV23 (Pneumovax) 01/02/2008 Seasonal [...] Telephone Encounter - Arina Daniels LPN - 03/19/2024 3:02 PM EDT Home Health Continuation/Re-certification of Care Order Request: Sarah RN, Calling from: [facility]. Today is the last day of allotted HH visits. Continuation/Re-certification of: Half-Way Re Cert period: 60 days Reason for re-cert: Blood Sugar under control Last office visit: 03/17/2024 (in office), 09/12/2023 (telemedicine) Next office visit: 08/12/2024 Advised that additional orders will be signed by Gregory Rausch MD and to fax to the office for signature. * Telephone Encounter - Nicole Cornelius OSA - 03/19/2024 3:00 PM EDT Sarah with [facility] called with updates documented in this encounter Plan of Treatment Upcoming Encounters Date Type Department Care Team (Late st Contact Info) Description 03/24/2024 11:00 AM EDT Office Visit Sleep Disorders Ctr [facility] [address] [place] [address] Christina Birch DO [address] [place] [address] 03/25/2024 10:00 AM EDT [facility] [address] [address] Jaycee Sorto, RN [address] [place] [address] 03/31/2024 9:10 AM EDT Office Visit [facility], [facility] [address] [facility] [address] Pharmacist1, [facility] [address] [facility] [place] [place] [address] 06/03/2024 9:00 AM EDT Telemedicine Psychiatry [facility] [address] [place] [phone] Janice Atwood MD [address] [place] [address] 07/17/2024 9:30 AM EDT Office Visit Cardiology, [facility] [address] [place] [facility] [address] Roberto Carlos Muniz, [address] [place] [address] 08/12/2024 9:20 AM EST Office Visit Family Practice [facility] [address] [place] [facility] [address] Gregory Rausch MD [address] [place] [place] [address] 11/27/2024 9:40 AM EST Office Visit Nephrology, [facility] [address] [facility] [place] [address] Fidelina Baumann MD [address] [facility] [place] [address] Scheduled Procedures Name Priority Associated Diagnoses Date/Ti [...] Scan 12/18/2023 01/12/2009 CKD PHOS USE SMARTSET 66121 06/18/202405/26, 06/16/2023, 06/15/2023, Additional history exists GFR 07/09/2024 01/08/2024, 09/25, 08/02/2023, Additional history exists HbA1c 08/01/2024 01/30/2024, 08/25, 07/31/2023, Additional history exists Diabetic Eye Exam 09/13/2024 09/13/2023, , 09/13/2023, Additional history exists B-12 09/18/2024 09/18/2023, 08/24, 2020, Additional history exists Depression Monitoring 12/24/2024 12/25/2023 Albumin/Creatinine Ratio 01/07/2025 024, 03/09/2023, 12/22/2022, Additional history exists CKD HGB USE SMARTSET 79117 01/07/202501/07, 01/08/2024, 10/15/2023, Additional history exists TSH [...] this encounter Medical Devices Implanted Type Area Theater Company Producer Device Identifier Shelf Expiration Date Model / Serial / Lot Cath Roselia Single Lumen - [id number] Implanted:Qty : 1 on 03/12/2008 at OR [facility] Left: Chest [facility] *DO NOT USE* 07/25/2012 21-4053-24 / / [id number] Sut Steel 6 M654g - [id number] Implanted:Qty : 1 on 11/01/2010 at OR [facility] N/A: Chest DO NOT USE M654G / / Sut Steel 6 M654g - [id number] Implanted:Qty : 1 on 11/01/2010 at OR [facility] N/A: Chest DO NOT USE M654G / / Valve Tarsha Aortic [id number] - [id number] Implanted:Qty : 1 on 11/01/2010 at OR [facility] N/A: Heart [employer] DANIEL 05/20/2012 2800TFX-25 / / [id number] Mesh Soft [id number] - [id number] Implanted:Qty : 1 on 10/10/2019 by Gigi Hendrickson MD at OR [facility] N/A: Abdomen CR BARD : DAVOL [id number] 05/21/2024 [id number] / / [id number] Lens 22.5 Sn60wf - [id number] - [id number] Implanted:Qty : 1 on 09/15/2020 by Renaldo Cook, Cece Acosta MD at [facility] Right: Eye IVA : SURGICAL [id number] 05/13/2025 SN60 WF.225 / [id number] / [id number] Lens 21.5 Sn60wf - [id number] - [id number] Implanted:Qty : 1 on 12/19/2023 by Ramsey Burnett DO at OR [facility] Left: Eye IVA : SURGICAL 12/03/2024 SN60WF.2 15 / [id number] / documented as of this encounter [...] patient have Health Care Power of Attor azucean? No * Full Code Date Activated Date Inactivated Comments 10/10/2019 8:40 AM 10/10/2019 5:53 PM This order r eflects the patients wishes and were consensually agreed upon. Healthcare Agents on File Name Relationship Healthcare Agent Relationshi p Communication Gigi Rose Adult Child Health Care Repr esentative (appointed verbally by patient or by statute hierarchy) Care Teams Tooling Manager Relationship Specialty Start Date End Date Gregory Rausch MD [address] [place] [address] PCP - General Family Medicine 02/12/20 documented as of this encounter
--- OUTSIDE RECORDS SUMMARY | 2024-06-05 14:47 | External Medical Summary | Summary of Care ---
Author Name Unknown Organization [facility] Address [address] [place] [address] Phone [phone] Care Team Providers Care Stroke Program Coordinator Name Role Phone Gregory Rausch MD Primary Care Provider [phone] Encounter Details Date Type Department Care Team (Late st Contact Info) Description 03/17/2024 Population Health External Data Unspecified Department Allergies Active Allergy Reactions Criticality Noted Date Comments Adhesive Tape 07/02/2017 Can tolerate band-aids Glycerin Other (Please comment) 03/12/2008 Topical agents with glycein-burning & itching Lactose 12/09/2014 Dairy - gas Lisinopril Cough 01/21/2010 Monosodium Glutamate Edema Other 03/12/2008 Hands and feet Penicillins Rash 11/14/2007 documented as of this encounter (statuses as of 03/18/2024) Medications Medication Sig Dispensed Refills Start Date [...] by mouth in the morning. 30 Capsule 12/12/2023 Active CPAP every night at bedtime. [...] Capsules by mouth in the morning. Active Cappella Medical DevicesTouch Verio In Vitro Strip (Glucose Blood) Use [...] MEDICATIONS 90 Tablet 2 01/10/2024 Active Nystatin 634590 UNIT/GM External Powder (Nystop)Indications: Candidal intertrigo Apply [...] the morning. 6 mL 2 03/14/2024 Active Fcdcqkrqjw-Zqefrkj-N affeine 50-325-40 MG Oral Tablet (Fiorinal)Indication s:Acute intractable tension-type headache Take 1 Tablet by mouth every 4 hours as needed for Headache for up to 5 days. 30 Tablet 03/17/2024 Active documented as of this encounter (statuses as of 03/18/2024) Active Problems Problem Noted Date Diagnosed Date [...] as of this encounter (statuses as of 03/18/2024) Resolved Problems Problem Noted Date Diagnosed Date [...] 12/21/2016 Diabetes mellitus 01/05/2014 12/21/2016 LEYVA RESEARCH OTHER*[id number] 01/05/2014 12/21/2016 Axillary pain 11/03/2013 12/21/2016 Obesity, [...] 12/21/2016 FOLLOWING SURGERY, UNSPECIFI ED ([facility] BSO 08/25/2011) 08/26/2011 12/21/2016 ADVANCE [...] Medical Record [facility] V710 Clinical Trial*[id number] 12/22/2010 04/14/2011 S/P aortic valve replacement 12/01/2010 08/26/2011 S/P AORTIC VALVE REPLACEMENT - #25 pericardial Mc valve 11/01/2010 06/28/2018 Overview: Aortic valve replacement with #25 pericardial Mc valve, model 2800TFX, serial number [id number] (Dr. Walker) [facility] V710 Clinical Trial*[id number] 10/18/2010 11/21/2010 Type 2 diabetes mellitus wit [...] as of this encounter (statuses as of 03/18/2024) Immunizations Name Administration Dates Next Due COVID-19 mRNA, LNP-s, No Pre serve, 2-Dose Series (Moderna) 10/25/2021,02/16/2021,01/18/2021 HEP A - Hepatitis A (Adult > 18 yrs) 06/07/2018, 12/05/2017 Hepatitis B, 20+ yrs 06/07/2018,01/08/20 18,12/05/2017,06/15,10/27/2013,09/12/2013 Pneumococcal Conjugate Vacci ne, 20-valent ([id number]) 06/22/2023 Pneumococcal Polysaccharide PPV23 (Pneumovax) 01/02/2008 Seasonal [...] EDT Office Visit Sleep Disorders Ctr [facility] [address] [place] [phone] Christina Birch, DO [address] [place] [address] 03/25/2024 10:00 AM EDT [facility] [address] [facility] [place] [address] Jaycee Sorto, RN [address] [place] [address] 03/31/2024 9:10 AM EDT Office Visit Pharmacy, [facility] [address] [facility] [place] [address] Pharmacist1, [facility] 200 [facility] [place] [address] 06/03/2024 9:00 AM EDT Telemedicine Psychiatry [facility] [address] [place] [address] Janice Atwood MD [address] [place] [address] 07/17/2024 9:30 AM EDT Office Visit Cardiology, [facility] 132 [place] [address] Roberto Carlos Muniz DO 132 [place] [address] 08/12/2024 9:20 AM EST Office Visit Family Practice [facility] [address] [facility] [place] [address] Gregory Rausch MD 132 [facility] [place] [address] 11/27/2024 9:40 AM EST Office Visit Nephrology, [facility] [address] [facility] [place] [address] Fidelina Baumann MD [address] [facility] [place] [address] Scheduled Procedures Name Priority Associated Diagnoses Date/Ti [...] Scan 12/18/2023 01/12/2009 CKD PHOS USE SMARTSET 17118 06/18/202405/26, 06/16/2023, 06/15/2023, Additional history exists GFR 07/09/2024 01/08/2024, 09/25, 08/02/2023, Additional history exists HbA1c 08/01/2024 01/30/2024, 08/25, 07/31/2023, Additional history exists Diabetic Eye Exam 09/13/2024 09/13/2023, , 09/13/2023, Additional history exists B-12 09/18/2024 09/18/2023, 08/24, 2020, Additional history exists Depression Monitoring 12/24/2024 12/25/2023 Albumin/Creatinine Ratio 01/07/2025 024, 03/09/2023, 12/22/2022, Additional history exists CKD HGB USE SMARTSET 35126 01/07/202501/07, 01/08/2024, 10/15/2023, Additional history exists TSH [...] this encounter Medical Devices Implanted Type Area Sticker On Device Identifier Shelf Expiration Date Model / Serial / Lot Cath Roselia Single Lumen - [id number] Implanted:Qty : 1 on 03/12/2008 at OR [facility] Left: Chest [employer] *DO NOT USE* 07/25/2012 21-4053-24 / / [id number] Sut Steel 6 M654g - [id number] Implanted:Qty : 1 on 11/01/2010 at OR [facility] N/A: Chest DO NOT USE M654G / / Sut Steel 6 M654g - [id number] Implanted:Qty : 1 on 11/01/2010 at OR [facility] N/A: Chest DO NOT USE M654G / / Valve Tarsha Aortic [id number] - [id number] Implanted:Qty : 1 on 11/01/2010 at OR [facility] N/A: Heart [employer] DANIEL 05/20/2012 2800TFX-25 / / [id number] Mesh Soft [id number] - [id number] Implanted:Qty : 1 on 10/10/2019 by Gigi Hendrickson MD at OR [facility] N/A: Abdomen CR BARD : DAVOL [id number] 05/21/2024 [id number] / / [id number] Lens 22.5 Sn60wf - [id number] - [id number] Implanted:Qty : 1 on 09/15/2020 by Cece Roland MD at [facility] Right: Eye IVA : SURGICAL [id number] 05/13/2025 SN60 WF.225 / [id number] / [id number] Lens 21.5 Sn60wf - [id number] - [id number] Implanted:Qty : 1 on 12/19/2023 by Ramsey Burnett DO at OR [facility] Left: Eye IVA : SURGICAL 12/03/2024 SN60WF.2 15 / [id number] / documented as of this encounter [...] patient or by statute hierarchy) Care Teams Stroke Program Coordinator Relationship Specialty Start Date End Date Gregory Rausch MD [address] [place] [address] PCP - General Family Medicine 02/12/20 documented as of this encounter
--- OUTSIDE RECORDS SUMMARY | 2024-06-05 14:48 | External Medical Summary | Summary of Care ---
Author Name Unknown Organization [facility] Address [address] [place] [address] Phone [phone] Care Team Providers Care Sample Card Maker Name Role Phone Gregory Rausch MD Primary Care Provider [phone] Reason for Visit * Reason Onset Date Comments Fax Refill 03/07/2024 Encounter Details Date Type Department Care Team (Late st Contact Info) Description 03/07/2024 Telephone Cardiology, [facility] [address] [place] [address] Feli Teague PA-C [address] [place] [address] Fax Refill Allergies Active Allergy Reactions Criticality Noted Date Comments Adhesive Tape 07/02/2017 Can tolerate band-aids Glycerin Other (Please comment) 03/12/2008 Topical agents with glycein-burning & itching Lactose 12/09/2014 Dairy - gas Lisinopril Cough 01/21/2010 Monosodium Glutamate Edema Other 03/12/2008 Hands and feet Penicillins Rash 11/14/2007 documented as of this encounter (statuses as of 03/07/2024) Medications Medication Sig Dispensed Refills Start Date [...] hypoglycemia E11.9 100 Tab 3 07/06/2021 Active Invisible SentinelTouch Verio w/Device Kit Use up to 4 [...] Capsules by mouth in the morning. Active Invisible SentinelTouch Verio In Vitro Strip (Glucose Blood) Use [...] use of insulin ([facility]) Inject 30 Units under the skin in [...] MEDICATIONS 90 Tablet 2 01/10/2024 Active Nystatin 993560 UNIT/GM External Powder (Nystop)Indications :Candidal intertrigo Apply [...] s:Heart failure, systolic, due to idiopathic cardiomyopathy ([facility]),S/P aortic valve replacement,HTN, goal below 140/80,Dyslipidemia , [...] 01/10/2024 Active Fidaxomicin 200 MG Oral Tablet (Dificid)Indication s:Recurrent Clostridium difficile diarrhea Take 1 Tablet by [...] the morning 90 Tablet 3 03/07/2024 Active Magnesium Oxide -Mg Supplement 400 (240 Mg) MG Oral Tablet (Mag-Ox)Indications :HTN, goal below 130/80 One tablet by mouth daily in the morning 90 Tablet 3 01/10/2024 03/07/20 24 Discontinu ed(Refill) documented as of this encounter (statuses as of 03/07/2024) Active Problems Problem Noted Date Diagnosed Date [...] eye 09/28/2020 Coronary artery disease invo lving [place] coronary artery of [place] heart without angina pectoris 12/16/2019 Last Assessment [...] as of this encounter (statuses as of 03/07/2024) Resolved Problems Problem Noted Date Diagnosed Date [...] 12/21/2016 Diabetes mellitus 01/05/2014 12/21/2016 LEYVA RESEARCH OTHER*[id number] 01/05/2014 12/21/2016 Axillary pain 11/03/2013 12/21/2016 Obesity, [...] into Electronic Medical Record [employer] V710 Clinical Trial*[id number] 12/22/2010 04/14/2011 S/P aortic valve replacement 12/01/2010 08/26/2011 S/P AORTIC VALVE REPLACEMENT - #25 pericardial Mc valve 11/01/2010 06/28/2018 Overview: Aortic valve replacement with #25 pericardial Mc valve, model 2800TFX, serial number [id number] (Dr. Walker) [facility] V710 Clinical Trial*[id number] 10/18/2010 11/21/2010 Type 2 diabetes mellitus wit [...] blood sugars to review with endocrinology --has néo--last hgba1c 04/14/22 8.2 --metformin 850mg BID --ozemipic [...] as of this encounter (statuses as of 03/07/2024) Immunizations Name Administration Dates Next Due COVID-19 mRNA, LNP-s, No Pre serve, 2-Dose Series (Moderna) 10/25/2021,02/16/2021,01/18/2021 HEP A - Hepatitis A (Adult > 18 yrs) 06/07/2018, 12/05/2017 Hepatitis B, 20+ yrs 06/07/2018,01/08/20 18,12/05/2017,06/15,10/27/2013,09/12/2013 Pneumococcal Conjugate Vacci ne, 20-valent ([id number]) 06/22/2023 Pneumococcal Polysaccharide PPV23 (Pneumovax) 01/02/2008 Seasonal [...] money to get more. Never true 01/22/2024 Education Answer Date Recorded What is [...] Miscellaneous Notes * Telephone Encounter - Feli Teague PA-C - 03/07/2024 2:16 PM EDT Orders signed as requested. * Telephone Encounter - Feli Teague PA-C - 03/07/2024 2:05 PM EDT Is this a refill request? What med? * Telephone Encounter - Sylvester Burger LPN - 03/07/2024 8:42 AM EDT Did you pend patient's preferred pharmacy and medication before forwarding?yes Pharmacy: [id number] Pending Prescriptions: Disp Refills Magnesium Oxide -Mg Supplement 400 (240 M*90 Tab*3 Sig: One tablet by mouth daily in the morning Last Visit: 01/08/2024 (in office), 02/12/2020 (telemedicine) Next Visit: 07/17/2024 If no future appointments scheduled, and last appointment is greater than a year ago, please schedule patient for a follow-up appointment Last date the medication was ordered: 01/10/24 Is this request for a controlled substance?No [...] AM EDT Office Visit Sleep Disorders Ctr [facility] 132 [facility] [place] [address] Christina Birch, [address] [place] [address] 03/25/2024 10:00 AM EDT [facility] [address] [place] [address] Jaycee Sorto RN [address] [place] [address] 06/03/2024 9:00 AM EDT Telemedicine Psychiatry [facility] [address] [facility] [address] Janice Atwood MD [address] [facility], [place] [address] 07/17/2024 9:30 AM EDT Office Visit Cardiology, [facility] [address] [employer] [address] Roberto Carlos Muniz, DO 132 [place] [address] 08/12/2024 9:20 AM EST Office Visit Family Practice [facility] [address] [address] Gregory Rausch MD 132 [facility] [place] [address] 11/27/2024 9:40 AM EST Office Visit Nephrology, [facility] 200 [facility] [place] [address] Fidelina Baumann MD [address] [facility] [place] [address] Scheduled Procedures Name Priority Associated Diagnoses Date/Ti [...] Scan 12/18/2023 01/12/2009 CKD PHOS USE SMARTSET 26364 06/18/202405/26, 06/16/2023, 06/15/2023, Additional history exists GFR 07/09/2024 01/08/2024, 09/25, 08/02/2023, Additional history exists HbA1c 08/01/2024 01/30/2024, 08/25, 07/31/2023, Additional history exists Diabetic Eye Exam 09/13/2024 09/13/2023, , 09/13/2023, Additional history exists B-12 09/18/2024 09/18/2023, 08/24, 2020, Additional history exists Depression Monitoring 12/24/2024 12/25/2023 Albumin/Creatinine Ratio 01/07/2025 024, 03/09/2023, 12/22/2022, Additional history exists CKD HGB USE SMARTSET 09631 01/07/202501/07, 01/08/2024, 10/15/2023, Additional history exists TSH [...] this encounter Medical Devices Implanted Type Area Night Supervisor Device Identifier Shelf Expiration Date Model / Serial / Lot Cath Roselia Single Lumen - [id number] Implanted:Qty : 1 on 03/12/2008 at OR [facility] Left: Chest [facility] *DO NOT USE* 07/25/2012 21-4053-24 / / [id number] Sut Steel 6 M654g - [id number] Implanted:Qty : 1 on 11/01/2010 at OR [facility] N/A: Chest DO NOT USE M654G / / Sut Steel 6 M654g - [id number] Implanted:Qty : 1 on 11/01/2010 at OR [facility] N/A: Chest DO NOT USE M654G / / Valve Tarsha Aortic [id number] - [id number] Implanted:Qty : 1 on 11/01/2010 at OR [facility] N/A: Heart [employer] DANIEL 05/20/2012 2800TFX-25 / / [id number] Mesh Soft [id number] - [id number] Implanted:Qty : 1 on 10/10/2019 by Gigi Hendrickson MD at OR [facility] N/A: Abdomen CR BARD : DAVOL [id number] 05/21/2024 [id number] / / [id number] Lens 22.5 Sn60wf - [id number] - [id number] Implanted:Qty : 1 on 09/15/2020 by Renaldo Cook, Cece Acosta MD at OR [facility] Right: Eye IVA : SURGICAL [id number] 05/13/2025 SN60 WF.225 / [id number] / [id number] Lens 21.5 Sn60wf - [id number] - [id number] Implanted:Qty : 1 on 12/19/2023 by Ramsey Burnett, DO at OR [facility] Left: Eye IVA : SURGICAL 12/03/2024 SN60WF.2 15 / [id number] / documented as of this encounter Visit Diagnoses Diagnosis HTN, goal below 130/80 Unspecified essential hypertension documented in this encounter Advance Directives * [...] File Name Relationship Healthcare Agent [facility] Communication Gigi Rose Adult Child Health Care Repr esentative (appointed verbally by patient or by statute hierarchy) Care Teams Sample Card Maker Relationship Specialty Start Date End Date Gregory Rausch MD [address] [place] [address] PCP - General Family Medicine 02/12/20 documented as of this encounter
--- OUTSIDE RECORDS SUMMARY | 2024-06-05 14:48 | External Medical Summary | Summary of Care ---
Author Name Unknown Organization [facility] Address [address] [place] [address] Phone [phone] Care Team Providers Care Locker Plant Attendant Name Role Phone Gregory Rausch MD Primary Care Provider [phone] Reason for Visit * Reason Onset Date Comments Med Request 02/26/2024 Encounter Details Date Type Department Care Team (Late st Contact Info) Description 02/26/2024 Telephone Family Practice [facility] [address] [place] [address] Gregory Rausch MD [address] [facility] [place] [address] Med Request (/) Allergies Active Allergy Reactions Criticality Noted Date Comments Adhesive Tape 07/02/2017 Can tolerate band-aids Glycerin Other (Please comment) 03/12/2008 Topical agents with glycein-burning & itching Lactose 12/09/2014 Dairy - gas Lisinopril Cough 01/21/2010 Monosodium Glutamate Edema Other 03/12/2008 Hands and feet Penicillins Rash 11/14/2007 documented as of this encounter (statuses as of 02/28/2024) Medications Medication Sig Dispensed Refills Start Date [...] Capsules by mouth in the morning. Active Visual RevenueTouch Verio In Vitro Strip (Glucose Blood) Use [...] use of insulin ([facility]) Inject 30 Units under the skin in the morning. 6 mL 01/10/2024 Active BD Pen Needle Short U/F 31G X 8 MMIndications:Type 2 diabetes mellitus with hemoglobin A1c goal of less than 7.0% ([facility]),Type 2 diabetes mellitus with stage 3a chronic kidney disease, with long-term current use of insulin ([facility]) Use with insulin 4 times daily 400 Each 01/10/2024 Active Magnesium Oxide -Mg Supplement 400 (240 Mg) MG Oral Tablet (Mag-Ox)Indications: HTN, goal below 130/80 One tablet by mouth daily in the morning 90 Tablet 01/10/2024 Active Clopidogrel Bisulfate 75 MG Oral Tablet (pLAVix) Take 1 Tablet by mouth in the morning. 90 Tablet 2 01/10/2024 Active Levothyroxine Sodium 75 MCG Oral Tablet (Levoxyl)Indications :Hypothyroidism TAKE 1 TAB BY MOUTH DAILY FIRST THING IN AM, AT LEAST 30 MIN PRIOR TO BREAKFAST OR OTHER MEDICATIONS 90 Tablet 2 01/10/2024 Active Nystatin 107011 UNIT/GM External Powder (Nystop)Indications: Candidal intertrigo Apply [...] Capsule before bedtime. 60 Capsule 02/07/2024 Active documented as of this encounter (statuses as of 02/28/2024) Active Problems Problem Noted Date Diagnosed Date [...] as of this encounter (statuses as of 02/28/2024) Resolved Problems Problem Noted Date Diagnosed Date [...] 12/21/2016 Diabetes mellitus 01/05/2014 12/21/2016 LEYVA RESEARCH OTHER*[id number] 01/05/2014 12/21/2016 Axillary pain 11/03/2013 12/21/2016 Obesity, [...] into Electronic Medical Record [facility] V710 Clinical Trial*[id number] 12/22/2010 04/14/2011 S/P aortic valve replacement 12/01/2010 08/26/2011 S/P AORTIC VALVE REPLACEMENT - #25 pericardial Mc valve 11/01/2010 06/28/2018 Overview: Aortic valve replacement with #25 pericardial Mc valve, model 2800TFX, serial number [id number] (Dr. Walker) [facility] V710 Clinical Trial*[id number] 10/18/2010 11/21/2010 Type 2 diabetes mellitus wit [...] as of this encounter (statuses as of 02/28/2024) Immunizations Name Administration Dates Next Due COVID-19 mRNA, LNP-s, No Pre serve, 2-Dose Series (Moderna) 10/25/2021,02/16/2021,01/18/2021 HEP A - Hepatitis A (Adult > 18 yrs) 06/07/2018, 12/05/2017 Hepatitis B, 20+ yrs 06/07/2018,01/08/20 18,12/05/2017,06/15,10/27/2013,09/12/2013 Pneumococcal Conjugate Vacci ne, 20-valent (Awmbuod23) 06/22/2023 Pneumococcal Polysaccharide PPV23 (Pneumovax) 01/02/2008 Seasonal [...] Telephone Encounter - Angelica Yadav LPN - 02/28/2024 9:03 AM EDT Called and left detailed message on with this information. * Telephone Encounter - Gregory Rausch MD - 02/27/2024 12:14 PM EDT Correct. She has to buy them. There is no prescription to replace those that would be cheaper than the OTC cost of those. * Telephone Encounter - Angelica Yadav LPN - 02/27/2024 11:52 AM EDT I think she is asking for prescription strength probiotic and lotion? IF they are otc, then she will just have to get them otc, unsure what alternative are similar to these at prescription strength. * Telephone Encounter - Natasha Wray CPhT - 02/26/2024 11:22 AM EDT Patient calling because 2 of the medication sent to the pharmacy are OTC and insurance will not cover. Patient is asking for alternatives for Aquaphor and Florastor. Please advise patient Thank you, Natasha Wray CPhT Offset Lithographic Press Setter [facility] ([facility])(formerly telepharmacy) 02/26/2024,11:23 AM documented in this encounter Plan of Treatment Upcoming Encounters Date Type Department Care Team (Late st Contact Info) Description 03/04/2024 11:00 AM EDT Home Visit [facility] Coordination [facility] Integration [address] [place] [address] Angelica Navas, Community Health Vice President Of Instruction [address] [place] [address] 03/06/2024 7:45 AM EDT Office Visit Ophthalmology, [facility] 132 [facility] [place] [address] Ramsey Burnett, DO [address] [place] [address] 03/24/2024 11:00 AM EDT Office Visit Sleep Disorders Ctr [facility] 132 [facility] [place] [phone] Christina Birch, DO 132 [facility] [place] [address] 03/25/2024 10:00 AM EDT [facility] [address] [facility] [place] [address] Jaycee Sorto, RN 132 [facility] [place] [address] 06/03/2024 9:00 AM EDT Telemedicine Psychiatry [facility]ian [address] [place] [phone] Janice Atwood MD [address] [place] [address] 07/17/2024 9:30 AM EDT Office Visit Cardiology, [facility] [address] [place] [address] Roberto Carlos Muniz, 132 [facility] [place] [address] 08/12/2024 9:20 AM EST Office Visit Family Practice [facility] [address] [place] [address] Gregory Rausch MD [address] [place] [address] 11/27/2024 9:40 AM EST Office Visit Nephrology, [facility] [address] [facility] [place] [address] Fidelina Buamann MD 200 [facility] [place] [address] Scheduled Procedures Name Priority Associated Diagnoses Date/Ti [...] 10/25/2021, 02/16/2021, 01/18/2021 DXA Scan 12/18/2023 01/12/2009 Depression, Most Recent Score >= 10 (will fire each visit until score < 10) 12/26/2023 12/25/2023 CKD PHOS USE SMARTSET 66221 06/18/202405/26, 06/16/2023, 06/15/2023, Additional history exists GFR 07/09/2024 01/08/2024, 09/25, 08/02/2023, Additional history exists HbA1c 08/01/2024 01/30/2024, 08/25, 07/31/2023, Additional history exists Diabetic Eye Exam 09/13/2024 09/13/2023, , 09/13/2023, Additional history exists B-12 09/18/2024 09/18/2023, 08/24, 2020, Additional history exists Albumin/Creatinine Ratio 01/07/2025 024, 03/09/2023, 12/22/2022, Additional history exists CKD HGB USE SMARTSET 49099 01/07/202501/07, 01/08/2024, 10/15/2023, Additional history exists TSH [...] this encounter Medical Devices Implanted Type Area Meat Department Manager Device Identifier Shelf Expiration Date Model / Serial / Lot Cath Roselia Single Lumen - [id number] Implanted:Qty : 1 on 03/12/2008 at OR [facility] Left: Chest [employer] *DO NOT USE* 07/25/2012 21-4053-24 / / [id number] Sut Steel 6 M654g - [id number] Implanted:Qty : 1 on 11/01/2010 at OR [facility] N/A: Chest DO NOT USE M654G / / Sut Steel 6 M654g - [id number] Implanted:Qty : 1 on 11/01/2010 at OR [facility] N/A: Chest DO NOT USE M654G / / Valve Tarsha Aortic [id number] - [id number] Implanted:Qty : 1 on 11/01/2010 at OR [facility] N/A: Heart [employer] DANIEL 05/20/2012 2800TFX-25 / / [id number] Mesh Soft [id number] - [id number] Implanted:Qty : 1 on 10/10/2019 by Gigi Hendrickson MD at OR [facility] N/A: Abdomen CR BARD : DAVOL [id number] 05/21/2024 [id number] / / [id number] Lens 22.5 Sn60wf - [id number] - [id number] Implanted:Qty : 1 on 09/15/2020 by Renaldo Cook, Cece Acosta MD at OR [facility] Right: Eye IVA : SURGICAL [id number] 05/13/2025 SN60 WF.225 / [id number] / [id number] Lens 21.5 Sn60wf - [id number] - [id number] Implanted:Qty : 1 on 12/19/2023 by Ramsey Burnett DO at OR [facility] Left: Eye IVA : SURGICAL 12/03/2024 SN60WF.2 15 / [id number] / documented as of this encounter Additional Health Concerns Infection Onset Date Last Indicated Resolved Time Parainfluenza Virus 02/13/2024 02/13/2024 documented as of this encounter Advance Directives [...] patient or by statute hierarchy) Care Teams Locker Plant Attendant Relationship Specialty Start Date End Date Gregory Rausch MD [address] [place] [address] PCP - General Family Medicine 02/12/20 documented as of this encounter
--- OUTSIDE RECORDS SUMMARY | 2024-06-05 14:48 | External Medical Summary | Summary of Care ---
Author Name Unknown Organization [facility] Address [address] Care Team Providers Care Bb Shot Packer Name Role Phone Gregory Rausch MD Primary Care Provider [phone] Reason for Visit * Reason Onset Date Comments Advice 02/28/2024 Encounter Details Date Type Department Care Team (Late st Contact Info) Description 02/28/2024 Telephone Pharmacy, [facility] [address] [place] [address] Pharmacist1, [facility] [address] [facility] [place] [address] Advice Allergies Active Allergy Reactions Criticality Noted [...] MEDICATIONS 90 Tablet 2 01/10/2024 Active Nystatin 168378 UNIT/GM External Powder (Nystop)Indications: Candidal intertrigo Apply [...] eye 09/28/2020 Coronary artery disease invo lving augustine coronary artery of augustine heart without angina pectoris 12/16/2019 Last Assessment [...] 12/21/2016 Diabetes mellitus 01/05/2014 12/21/2016 LEYVA RESEARCH OTHER*[id number] 01/05/2014 12/21/2016 Axillary pain 11/03/2013 12/21/2016 Obesity, [...] cath 09/201008/26/2011 12/21/2016 FOLLOWING SURGERY, UNSPECIFI ED ([facility] 08/25/2011) 08/26/2011 12/21/2016 ADVANCE DIRECTIVE INFORMATION 04/17/2011 12/21/2016 Overview: Yes, Patient instructed to provide copy of advance directive for provider to review and to be scanned into Electronic Medical Record ADVANCE DIRECTIVE INFORMATION 03/01/2011 12/21/2016 Overview: Yes, Patient instructed to provide copy of advance directive for provider to review and to be scanned into Electronic Medical Record [employer] V710 Clinical Trial*[id number] 12/22/2010 04/14/2011 S/P aortic valve replacement 12/01/2010 08/26/2011 S/P AORTIC VALVE REPLACEMENT - #25 pericardial Mc valve 11/01/2010 06/28/2018 Overview: Aortic valve replacement with #25 pericardial Mc valve, model 2800TFX, serial number [id number] (Dr. Walker) [facility] Cyan10 Clinical Trial*[id number] 10/18/2010 11/21/2010 Type 2 diabetes mellitus wit [...] 06/07/2018,01/08/20 18,12/05/2017,06/15,10/27/2013,09/12/2013 Pneumococcal Conjugate Vacci ne, 20-valent ([id number]) 06/22/2023 Pneumococcal Polysaccharide PPV23 (Pneumovax) 01/02/2008 Seasonal [...] Telephone Encounter - Neeraj Matthew RPh - 02/28/2024 4:24 PM EDT Spoke to patient ans she received a box with 3 sensors. She still has no transmitter or reader. Shestated her daughter is going to call Steph to clarify what she needs. Neeraj Romero RPh, [facility] Clinical Pharmacist Medication Therapy Management Clinic 02/28/2024, 4:25 PM * Telephone Encounter - Catherine Yuan CPhT - 02/28/2024 3:04 PM EDT Caller's name: [facility] call back number(OFFICE NUMBER FOR ): [phone] Reason for call: requesting a call from Netta, states she got the Dexcom "gun" but only one sensor? Catherine Yuan CPhT, MARISOL Dividing Machine Operator Helper II [facility] ([facility]) (formerly Telepharmacy) [address] [facility] [phone] [place] [address] ext [phone] documented in this encounter Plan of Treatment Upcoming Encounters Date Type Department Care Team (Late st Contact Info) Description 03/04/2024 11:00 AM EDT Home Visit Care Coordination and Integration [address] [place] [address] Angelica Navas, Community Health Director Of Program Management [address] [place] [address] 03/06/2024 7:45 AM EDT Office Visit Ophthalmology, [facility] 132 [place] [address] Ramsey Burnett, DO [address] [facility] [place] [address] 03/24/2024 11:00 AM EDT Office Visit Sleep Disorders Ctr [facility] 132 [facility] [place] [phone] Christina Birch, 132 [facility] [place] [address] 03/25/2024 10:00 AM EDT Home Visit [facility], [facility] 132 [facility] [place] [address] Jaycee Sorto, RN [facility] [place] [address] 06/03/2024 9:00 AM EDT Telemedicine [place]iatry [place] [address] [place] [phone] Janice Atwood MD [address] [place] [address] 07/17/2024 9:30 AM EDT Office Visit Cardiology, [facility] [address] [facility] [place] [address] Roberto Carlos Muniz, DO 132 [facility] [place] [address] 08/12/2024 9:20 AM EST Office Visit Family Practice [facility] [address] [place] [address] Gregory Rausch MD [address] [place] [address] 11/27/2024 9:40 AM EST Office Visit Nephrology, [facility] [address] [facility] [place] [address] Fidelina Baumann MD [address] [facility] [place] [address] Scheduled Procedures Name Priority Associated Diagnoses Date/Ti [...] 10) 12/26/2023 12/25/2023 CKD PHOS USE SMARTSET 93403 06/18/202405/26, 06/16/2023, 06/15/2023, Additional history exists GFR 07/09/2024 01/08/2024, 09/25, 08/02/2023, Additional history exists HbA1c 08/01/2024 01/30/2024, 08/25, 07/31/2023, Additional history exists Diabetic Eye Exam 09/13/2024 09/13/2023, , 09/13/2023, Additional history exists B-12 09/18/2024 09/18/2023, 08/24, 2020, Additional history exists Albumin/Creatinine Ratio 01/07/2025 024, 03/09/2023, 12/22/2022, Additional history exists CKD HGB USE SMARTSET 63505 01/07/202501/07, 01/08/2024, 10/15/2023, Additional history exists TSH [...] this encounter Medical Devices Implanted Type Area Pricing Analyst Device Identifier Shelf Expiration Date Model / Serial / Lot Cath Roselia Single Lumen - [id number] Implanted:Qty : 1 on 03/12/2008 at OR [facility] Left: Chest [facility] *DO NOT USE* 07/25/2012 21-4053-24 / / [id number] Sut Steel 6 M654g - [id number] Implanted:Qty : 1 on 11/01/2010 at OR [facility] N/A: Chest DO NOT USE M654G / / Sut Steel 6 M654g - [id number] Implanted:Qty : 1 on 11/01/2010 at OR [facility] N/A: Chest DO NOT USE M654G / / Valve Tarsha Aortic [id number] - [id number] Implanted:Qty : 1 on 11/01/2010 at OR [facility] N/A: Heart [employer] DANIEL 05/20/2012 2800TFX-25 / / [id number] Mesh Soft [id number] - [id number] Implanted:Qty : 1 on 10/10/2019 by Gigi Hendrickson MD [place] [facility] N/A: Abdomen CR BARD : DAVOL [id number] 05/21/2024 [id number] / / [id number] Lens 22.5 Sn60wf - [id number] - [id number] Implanted:Qty : 1 on 09/15/2020 by Renaldo Cook, Cece Acosta MD at [facility] Right: Eye IVA : SURGICAL [id number] 05/13/2025 SN60 WF.225 / [id number] / [id number] Lens 21.5 Sn60wf - [id number] - [id number] Implanted:Qty : 1 on 12/19/2023 by Ramsey Burnett DO at OR [facility] Left: Eye IVA : SURGICAL 12/03/2024 SN60WF.2 15 / [id number] / documented as of this encounter [...] Healthcare Agent Relationshi p Communication [facility] Care Repr esentative (appointed verbally by patient or by statute hierarchy) Care Teams Bb Shot Packer Relationship Specialty Start Date End Date Gregory Rausch MD [address] [place] [address] PCP - General Family Medicine 02/12/20 documented as of this encounter
--- OUTSIDE RECORDS SUMMARY | 2024-06-05 14:48 | External Medical Summary | Summary of Care ---
Author Name Unknown Organization [facility] Address [address] [place] [address] Phone [phone] Care Team Providers Care Structural Biologist Name Role Phone Gregory Rausch MD Primary Care Provider [phone] Reason for Visit * Reason Onset Date Comments Appointment 12/07/2023 Encounter Details Date Type Department Care Team (Late st Contact Info) Description 12/07/2023 Telephone Access Center, [facility] [address] [facility] *DO NOT REMOVE THIS DEPARTMENT* [place] [address] Services, Scheduling [address] [place] [address] Appointment Allergies Active Allergy Reactions Criticality Noted [...] needed 200 Each 5 09/20/20 23 Active traZODone HCl 100 MG Oral Tablet (Desyrel) Take 1 Tablet by mouth at bedtime. Active Multiple Vitamins-Minerals ([facility] SPECTRAVITE ADVANCED) TABS Take 1 Tab by mouth daily. 024 Discontinued(Ok dication List Clean Up) Magnesium Oxide 400 (240 Mg) MG Oral Tablet (Mag-Ox) One tablet by mouth daily in the morning 90 Tablet 3 12/24/19 23 024 Discontinued(Re fill) Omnipod 5 G6 Pod (Gen 5) Use as directed. Use 1 pod every 3 days 30 Each 3 01/12/20 23 024 Discontinued Omnipod 5 G6 Intro (Gen 5) Kit Use as directed. Use to delivery insulin via insulin pump 1 Kit 01/12/20 23 024 Discontinued Fluticasone Propionate 50 MCG/ACT Nasal Suspension (Flonase)Indications :Dizziness Administer 2 Sprays into each nostril in the morning. 16 g 3 03/01/20 23 024 Discontinued(Re fill) Clopidogrel Bisulfate 75 MG Oral Tablet (pLAVix) TAKE 1 TABLET (75 MG) BY MOUTH IN THE MORNING 90 Tablet 2 05/05/20 23 024 Discontinued(Re fill) Levothyroxine Sodium 75 MCG Oral Tablet (Levoxyl)Indications :Hypothyroidism TAKE 1 TAB BY MOUTH DAILY FIRST THING IN AM, AT LEAST 30 MIN PRIOR TO BREAKFAST OR OTHER MEDICATIONS 90 Tablet 2 05/05/20 024 Discontinued(Re fill) OneTouch Verio In Vitro Strip (Glucose Blood) Use up to 4 times a day E11.9 100 Strip 11 07/26/20 024 Discontinued(Re fill) Potassium Chloride Shannon ER 10 MEQ Oral Tablet Extended ReleaseIndications:A cute on chronic heart failure with preserved ejection fraction (HFpEF) ([facility]) Take 1 Tablet by mouth in the morning and 1 Tablet before bedtime. 180 Tablet 3 07/26/20 024 Discontinued(Re fill) Venelex External Ointment Apply topically to affected area 2 times a day. 06/29/20 024 Discontinued NovoLOG FlexPen 100 UNIT/ML Subcutaneous Solution Pen-injector (insulin aspart) Injected under the skin BEFORE MEALS, 3 times per day: 2 units per 50 when glucose is over 200 units. TDD: 50. ICD10: E11.9. 15 mL 2 07/31/20 024 Discontinued(Pa tient preference/disc ontinuation) Tresiba FlexTouch 200 UNIT/ML Subcutaneous Solution Pen-injector (Insulin Degludec)Indications :Type 2 diabetes mellitus with hemoglobin A1c goal of less than 7.0% ([facility]),Type 2 diabetes mellitus with stage 3a chronic kidney disease, with long-term current use of insulin ([facility]) Inject 30 Units under the skin at bedtime. 6 mL 2 07/31/20 024 Discontinued(Re fill) BD Pen Needle Short U/F 31G X 8 MMIndications:Type 2 diabetes mellitus with hemoglobin A1c goal of less than 7.0% ([facility]),Type 2 diabetes mellitus with stage 3a chronic kidney disease, with long-term current use of insulin ([facility]) Use with insulin 4 times daily 400 Each 3 07/31/20 23 024 Discontinued(Re fill) Atorvastatin Calcium 40 MG Oral Tablet (Lipitor)Indications :Heart failure, systolic, due to idiopathic cardiomyopathy ([facility]),S/P aortic valve replacement,HTN, goal below 140/80,Dyslipidemia, goal LDL below 70 TAKE 1 TABLET BY MOUTH DAILY. TO PREVENT HEART ATTACK/STROKE, PROTECT KIDNEY, AND CHOLESTEROL 90 Tablet 1 08/20/20 23 024 Discontinued(Re fill) Meclizine HCl 25 MG Oral Tablet (Antivert)Indication s:Muscle tension headache TAKE 2 TABLETS BY MOUTH TWICE A DAY 360 Tablet 3 08/20/20 23 024 Discontinued(Pa tient preference/disc ontinuation) metFORMIN HCl 1000 MG Oral Tablet (Glucophage) Take 1 Tablet by mouth 2 times a day with morning and evening meals. 180 Tablet 3 08/31/20 23 024 Discontinued Torsemide 10 MG Oral Tablet (Demadex) Take 1 Tablet by mouth in the morning. 024 Discontinued(Me dication/Dose Changed) Insulin Aspart 100 UNIT/ML Injection Solution (NovoLOG)Indications :Type 2 diabetes mellitus with hemoglobin A1c goal of less than 7.0% ([facility]) Use up to 50 units per day in Omnipod. 5 Each 3 09/11/20 23 024 Discontinued Metoprolol Tartrate 25 MG Oral Tablet (Lopressor) Take 1 Tablet by mouth in the morning and 1 Tablet before bedtime. 60 Tablet 5 09/26/19 24 024 Discontinued(Pa tient preference/disc ontinuation) Ammonium Lactate 12 % External Lotion (Lac-Hydrin) Apply to both feet once daily. 400 g 3 10/02/19 24 024 Discontinued(Pa tient preference/disc ontinuation) Nystatin 440561 UNIT/GM External Powder (Nystop)Indications: Candidal intertrigo Apply topically to affected area 3 times a day. Apply to affected areas 60 g 1 10/02/19 24 024 Discontinued(Re fill) Aquaphor External Ointment Apply topically to affected area as needed for Dry Skin. Apply to face 420 g 10/02/19 24 024 Discontinued(Re fill) Ozempic (2 MG/DOSE) 8 MG/3ML Subcutaneous Solution Pen-injector (Semaglutide (2 MG/DOSE))Indications :Type 2 diabetes mellitus with hemoglobin A1c goal of less than 7.0% (HCC),Type 2 diabetes mellitus with diabetic mononeuropathy, with long-term current use of insulin (HCC),Type 2 diabetes mellitus with both eyes affected by mild nonproliferative retinopathy and macular edema, with long-term current use of insulin ([facility]),Type 2 diabetes mellitus with stage 3a chronic kidney disease, with long-term current use of insulin ([facility]) Inject 2 mg under the skin once a week. 9 mL 3 10/01/19 24 024 Discontinued(Re fill) Dexcom G6 TransmitterIndicatio ns:Type 2 diabetes mellitus with hemoglobin A1c goal of less than 7.0% ([facility]) Use as directed. Use 1 transmitter every 90 days E 11.9 1 Each 3 10/18/19 24 024 Discontinued Dexcom G6 SensorIndications:Ty pe 2 diabetes mellitus with hemoglobin A1c goal of less than 7.0% ([facility]) Use as directed. Use 1 sensor every 10 days E 11.9 9 Each 3 10/18/19 24 024 Discontinued Gabapentin 100 MG Oral Capsule (Neurontin)Indicatio ns:Polyneuropathy associated with underlying disease ([facility]) TAKE 1 CAPSULE BY MOUTH EVERY DAY IN THE MORNING , AT NOON, AND BEFORE BEDTIME 90 Capsule 10/23/19 24 024 Discontinued(Re fill) Vancomycin HCl 125 MG Oral Capsule (Vancocin) Take 1 Capsule by mouth every 6 hours for 10 days, THEN 1 Capsule 2 times a day for 7 days, THEN 1 Capsule daily for 7 days, THEN 1 Capsule every other day for 14 days. 68 Capsule 12/03/19 24 024 Discontinued documented as of this [...] eye 09/28/2020 Coronary artery disease invo lving [place] coronary artery of [place] heart without angina pectoris 12/16/2019 Last Assessment [...] 12/21/2016 Diabetes mellitus 01/05/2014 12/21/2016 LEYVA RESEARCH OTHER*[id number] 01/05/2014 12/21/2016 Axillary pain 11/03/2013 12/21/2016 Obesity, [...] be scanned into Electronic Medical Record [facility] V710 Clinical Trial*[id number] 12/22/2010 04/14/2011 S/P aortic valve replacement 12/01/2010 08/26/2011 S/P AORTIC VALVE REPLACEMENT - #25 pericardial Mc valve 11/01/2010 06/28/2018 Overview: Aortic valve replacement with #25 pericardial Mc valve, model 2800TFX, serial number [id number] (Dr. Walker) [employer] V710 Clinical Trial*[id number] 10/18/2010 11/21/2010 Type 2 diabetes mellitus wit [...] 06/07/2018,01/08/20 18,12/05/2017,06/15,10/27/2013,09/12/2013 Pneumococcal Conjugate Vacci ne, 20-valent ([id number]) 06/22/2023 Pneumococcal Polysaccharide PPV23 (Pneumovax) 01/02/2008 Seasonal [...] money to get more. Never true 01/22/2024 Sex and Gender Information Value Date Recorded [...] Miscellaneous Notes * Telephone Encounter - Gisela Dacosta OSA - 12/10/2023 10:20 AM EDT Pt called about rescheduling surgery. Preferably for 12/18 w/ Dr Burnett. Please contact pt * Telephone Encounter - Amirah Patel OSA - 12/07/2023 2:28 PM EDT Pt calling again- states she is looking to reschedule surgery to December 18- states that she has leftseveral message sand no one is calling her back - please advise, thanks. * Telephone Encounter - Amirah Patel OSA - 12/07/2023 12:26 PM EDT Pt calling, states that she needs to rescheduled her surgery at [facility]- please advise, thanks. documented in this encounter Plan of Treatment Upcoming Encounters Date Type Department Care Team (Late st Contact Info) Description 03/24/2024 11:00 AM EDT Office Visit Sleep Disorders Ctr [facility] [address] [place] [address] Christina Birch DO [address] [facility] [place] [address] 03/25/2024 10:00 AM EDT [facility] [address] [facility] [place] [address] Jaycee Sorto, RN [address] [facility] [place] [address] 06/03/2024 9:00 AM EDT Telemedicine Psychiatry [facility] [address] [place] [address] Janice Atwood MD [address] [place], [place] [id number] 07/17/2024 9:30 AM EDT Office Visit Cardiology, [facility] [address] [place] [address] Roberto Carlos Muniz, [address] [place] [address] 08/12/2024 9:20 AM EST Office Visit Family Practice [facility] [address] [place] [address] Gregory Rausch MD [address] [place] [address] 11/27/2024 9:40 AM EST Office Visit Nephrology, [facility] [address] [place] [address] Fidelina Baumann MD [address] [facility] [place] [address] Scheduled Procedures Name Priority Associated Diagnoses Date/Ti [...] Scan 12/18/2023 01/12/2009 CKD PHOS USE SMARTSET 08240 06/18/202405/26, 06/16/2023, 06/15/2023, Additional history exists GFR 07/09/2024 01/08/2024, 09/25, 08/02/2023, Additional history exists HbA1c 08/01/2024 01/30/2024, 08/25, 07/31/2023, Additional history exists Diabetic Eye Exam 09/13/2024 09/13/2023, , 09/13/2023, Additional history exists B-12 09/18/2024 09/18/2023, 08/24, 2020, Additional history exists Depression Monitoring 12/24/2024 12/25/2023 Albumin/Creatinine Ratio 01/07/2025 024, 03/09/2023, 12/22/2022, Additional history exists CKD HGB USE SMARTSET 01542 01/07/202501/07, 01/08/2024, 10/15/2023, Additional history exists TSH [...] encounter Medical Devices Implanted Type Area Assistant Production Manager Device Identifier Shelf Expiration Date Model / Serial / Lot Cath Roselia Single Lumen - [id number] Implanted:Qty : 1 on 03/12/2008 at OR [facility] Left: Chest [facility] *DO NOT USE* 07/25/2012 21-4053-24 / / [id number] Sut Steel 6 M654g - [id number] Implanted:Qty : 1 on 11/01/2010 at OR [facility] N/A: Chest DO NOT USE M654G / / Sut Steel 6 M654g - [id number] Implanted:Qty : 1 on 11/01/2010 at OR [facility] N/A: Chest DO NOT USE M654G / / Valve Tarsha Aortic [id number] - [id number] Implanted:Qty : 1 on 11/01/2010 at OR [facility] N/A: Heart MC [employer] DANIEL 05/20/2012 2800TFX-25 / / [id number] Mesh Soft [id number] - [id number] Implanted:Qty : 1 on 10/10/2019 by Gigi Hendrickson MD at [place] [facility] N/A: Abdomen CR BARD : DAVOL [id number] 05/21/2024 [id number] / / [id number] Lens 22.5 Sn60wf - [id number] - [id number] Implanted:Qty : 1 on 09/15/2020 by eRnaldo Cook, Cece Acosta MD at [facility] Right: Eye IVA : SURGICAL [id number] 05/13/2025 SN60 WF.225 / [id number] / [id number] Lens 21.5 Sn60wf - [id number] - [id number] Implanted:Qty : 1 on 12/19/2023 by Ramsey Burnett DO at OR [facility] Left: Eye IVA : SURGICAL 12/03/2024 SN60WF.2 15 / [id number] / documented as of this encounter [...] Agents on File Name Relationship Healthcare Agent [facility] p Communication Gigi Rose Adult Child Health Care Repr esentative (appointed verbally by patient or by statute hierarchy) Care Teams Structural Biologist Relationship Specialty Start Date End Date Gregory Rausch MD [address] [place] [address] PCP - General Family Medicine 02/12/20 documented as of this encounter
--- OUTSIDE RECORDS SUMMARY | 2024-06-05 14:48 | External Medical Summary | Summary of Care ---
Author Name Unknown Organization [facility] Address [address] [place] [address] Phone [phone] Care Team Providers Care Bander And Cellophaner Machine Helper Name Role Phone Gregory Rausch MD Primary Care Provider [phone] Encounter Details Date Type Department Care Team (Late st Contact Info) Description 03/04/2024 11:00 AM EDT Home Visit Care Coordination and Integration [address] [place] [address] Angelica Navas, Community Health Cager Operator [address] [place], [place] [id number] Allergies Active Allergy Reactions Criticality Noted Date Comments Adhesive Tape 07/02/2017 Can tolerate band-aids Glycerin Other (Please comment) 03/12/2008 Topical agents with glycein-burning & itching Lactose 12/09/2014 Dairy - gas Lisinopril Cough 01/21/2010 Monosodium Glutamate Edema Other 03/12/2008 Hands and feet Penicillins Rash 11/14/2007 documented as of this encounter (statuses as of 03/04/2024) Medications Medication Sig Dispensed Refills Start Date [...] use of insulin ([facility]) Inject 30 Units under the skin in [...] in the morning 90 Tablet 3 01/10/2024 Active Clopidogrel Bisulfate 75 MG Oral Tablet (pLAVix) Take 1 Tablet by mouth in the morning. 90 Tablet 2 01/10/2024 Active Levothyroxine Sodium 75 MCG Oral Tablet (Levoxyl)Indications :Hypothyroidism TAKE 1 TAB BY MOUTH DAILY FIRST THING IN AM, AT LEAST 30 MIN PRIOR TO BREAKFAST OR OTHER MEDICATIONS 90 Tablet 2 01/10/2024 Active Nystatin 725854 UNIT/GM External Powder (Nystop)Indications: Candidal intertrigo Apply [...] as of this encounter (statuses as of 03/04/2024) Active Problems Problem Noted Date Diagnosed Date [...] eye 09/28/2020 Coronary artery disease invo lving [place] coronary artery of [place] heart without angina pectoris 12/16/2019 Last Assessment [...] as of this encounter (statuses as of 03/04/2024) Resolved Problems Problem Noted Date Diagnosed Date [...] 12/21/2016 Diabetes mellitus 01/05/2014 12/21/2016 LEYVA RESEARCH OTHER*[id number] 01/05/2014 12/21/2016 Axillary pain 11/03/2013 12/21/2016 Obesity, [...] 12/21/2016 FOLLOWING SURGERY, UNSPECIFI ED ([facility] 08/25/2011) 08/26/2011 12/21/2016 ADVANCE DIRECTIVE INFORMATION 04/17/2011 12/21/2016 Overview: Yes, Patient instructed to provide copy of advance directive for provider to review and to be scanned into Electronic Medical Record ADVANCE DIRECTIVE INFORMATION 03/01/2011 12/21/2016 Overview: Yes, Patient instructed to provide copy of advance directive for provider to review and to be scanned into Electronic Medical Record [facility] V710 Clinical Trial*[id number] 12/22/2010 04/14/2011 S/P aortic valve replacement 12/01/2010 08/26/2011 S/P AORTIC VALVE REPLACEMENT - #25 pericardial Mc valve 11/01/2010 06/28/2018 Overview: Aortic valve replacement with #25 pericardial Mc valve, model 2800TFX, serial number [id number] (Dr. Walker) [employer] V710 Clinical Trial*[id number] 10/18/2010 11/21/2010 Type 2 diabetes mellitus wit [...] as of this encounter (statuses as of 03/04/2024) Immunizations Name Administration Dates Next Due COVID-19 mRNA, LNP-s, No Pre serve, 2-Dose Series (Moderna) 10/25/2021,02/16/2021,01/18/2021 HEP A - Hepatitis A (Adult > 18 yrs) 06/07/2018, 12/05/2017 Hepatitis B, 20+ yrs 06/07/2018,01/08/20 18,12/05/2017,06/15,10/27/2013,09/12/2013 Pneumococcal Conjugate Vacci ne, 20-valent ([id number]) 06/22/2023 Pneumococcal Polysaccharide PPV23 (Pneumovax) 01/02/2008 Seasonal [...] Sign Reading Time Taken Comments Blood Pressure 160/90 03/04/2024 11:38 AM EDT Pulse 85 03/04/2024 11:38 AM EDT Temperature 37.1 C (98.8 F) 03/04/2024 11:38 AM E DT Respiratory Rate - - Oxygen Saturation 97% 03/04/2024 11:38 AM EDT Inhaled Oxygen Concentration - - [...] Progress Notes * Angelica Navas, Community Health Cager Operator - 03/04/2024 11:33 AM EDT Telemedicine visit: No Community Health Cager Operator (VALE) documentation: CHW facilitated home visit with patient. Patient reported that she is doing well however is having tooth pain and she is seeing the dentist tomorrow. Patient is working on getting her table cleared off and getting her cook books on the shelves that she has in her bedroom. Patient reported that she feels she is over the flu and over c-diff. Is feeling much better. Patient BP was running high todayand patient reported that her BP has been running high. Patient has been depressed and is taking meds for this. She is not having any thoughts to hurt herself. Her neuropathy has been bad lately and Dr. Rausch has adjusted her meds for this and it is helping. Angelica Navas- Community Health Worker 1 Support Services/[facility] [employer] [email or web address] documented in this encounter Plan of Treatment Upcoming Encounters Date Type Department Care Team (Late st Contact Info) Description 03/06/2024 7:45 AM EDT Office Visit Ophthalmology, [facility] [address] [facility] [place] [address] Ramsey Burnett, DO [address] [place] [address] 03/24/2024 11:00 AM EDT Office Visit Sleep Disorders Ctr [facility] [address] [facility] [place] [phone] Christina Birch DO [address] [facility] [place] [address] 03/25/2024 10:00 AM EDT Home Visit [facility] [place], [facility] [address] [facility] [place] [address] Jaycee Sorto, RN [address] [facility] [place] [address] 06/03/2024 9:00 AM EDT Telemedicine Psychiatry [facility] [address] [place] [phone] Janice Atwood MD [address] [place] [address] 07/17/2024 9:30 AM EDT Office Visit Cardiology, [facility] [address] [facility] [place] [address] Roberto Carlos Muniz, DO [address] [facility] [place] [address] 08/12/2024 9:20 AM EST Office Visit Family Practice [facility] [address] [place] [address] Gregory Rausch MD [address] [place] [address] 11/27/2024 9:40 AM EST Office Visit Nephrology, [facility] [address] [facility] [place] [address] Fidelina Baumann MD [address] [facility] [place] [address] Scheduled Procedures Name Priority Associated Diagnoses Date/Ti [...] Scan 12/18/2023 01/12/2009 CKD PHOS USE SMARTSET 05859 06/18/202405/26, 06/16/2023, 06/15/2023, Additional history exists GFR 07/09/2024 01/08/2024, 09/25, 08/02/2023, Additional history exists HbA1c 08/01/2024 01/30/2024, 08/25, 07/31/2023, Additional history exists Diabetic Eye Exam 09/13/2024 09/13/2023, , 09/13/2023, Additional history exists B-12 09/18/2024 09/18/2023, 08/24, 2020, Additional history exists Depression Monitoring 12/24/2024 12/25/2023 Albumin/Creatinine Ratio 01/07/2025 024, 03/09/2023, 12/22/2022, Additional history exists CKD HGB USE SMARTSET 91395 01/07/202501/07, 01/08/2024, 10/15/2023, Additional history exists TSH [...] this encounter Medical Devices Implanted Type Area Optometrist Device Identifier Shelf Expiration Date Model / Serial / Lot Cath Roselia Single Lumen - [id number] Implanted:Qty : 1 on 03/12/2008 at OR [facility] Left: Chest [facility] *DO NOT USE* 07/25/2012 21-4053-24 / / [id number] Sut Steel 6 M654g - [id number] Implanted:Qty : 1 on 11/01/2010 at OR [facility] N/A: Chest DO NOT USE M654G / / Sut Steel 6 M654g - [id number] Implanted:Qty : 1 on 11/01/2010 at OR [facility] N/A: Chest DO NOT USE M654G / / Valve Tarsha Aortic [id number] - [id number] Implanted:Qty : 1 on 11/01/2010 at OR [facility] N/A: Heart [employer] 05/20/2012 2800TFX-25 / / [id number] Mesh Soft 01p39km - [id number] Implanted:Qty : 1 on 10/10/2019 by Gigi Hendrickson MD at OR [facility] N/A: Abdomen CR BARD : DAVOL [id number] 05/21/2024 [id number] / / [id number] Lens 22.5 Sn60wf - [id number] - [id number] Implanted:Qty : 1 on 09/15/2020 by Renaldo Cook, Cece Acosta MD at OR [facility] Right: Eye IVA : SURGICAL [id number] 05/13/2025 SN60 WF.225 / [id number] / [id number] Lens 21.5 Sn60wf - [id number] - [id number] Implanted:Qty : 1 on 12/19/2023 by Ramsey Burnett DO at OR [facility] Left: Eye IVA : SURGICAL 12/03/2024 SN60WF.2 15 / [id number] / documented as of this encounter [...] patient or by statute hierarchy) Care Teams Bander And Cellophaner Machine Helper Relationship Specialty Start Date End Date Gregory Rausch MD [address] [place] [address] PCP - General Family Medicine 02/12/20 documented as of this encounter
--- OUTSIDE RECORDS SUMMARY | 2024-06-05 14:49 | External Medical Summary | Summary of Care ---
Author Name Unknown Organization [facility] Address [address] [place] [address] Phone [phone] Care Team Providers Care Cleaner Assistant Name Role Phone Gregory Rausch MD Primary Care Provider +1 [phone] Reason for Visit * Reason Comments Diabetes Follow-Up Dosage Adjustment Via Phone (anticoag Cl inic) Encounter Details Date Type Department Care Team (Late st Contact Info) Description 02/27/2024 6:00 PM EDT Pharmacy Pharmacy, [facility] [address] [place] [address] Pharmacist1, [facility] [address] [place] [address] Type 2 diabetes mellitus with hemoglobin A1c goal of less than 8.0% ([facility])*; Type 2 diabetes mellitus with stage 3a chronic kidney disease, with long-term current use of insulin ([facility]); Type 2 diabetes mellitus with diabetic peripheral angiopathy without gangrene, with long-term current use of insulin ([facility]) Allergies Active Allergy Reactions Criticality Noted Date Comments Adhesive Tape 07/02/2017 Can tolerate band-aids Glycerin Other (Please comment) 03/12/2008 Topical agents with glycein-burning & itching Lactose 12/09/2014 Dairy - gas Lisinopril Cough 01/21/2010 Monosodium Glutamate Edema Other 03/12/2008 Hands and feet Penicillins Rash 11/14/2007 documented as of this encounter (statuses as of 02/27/2024) Medications Medication Sig Dispensed Refills Start Date [...] times daily 400 Each 3 01/10/2024 Active Magnesium Oxide -Mg Supplement 400 [...] MEDICATIONS 90 Tablet 2 01/10/2024 Active Nystatin 598968 UNIT/GM External Powder (Nystop)Indications: Candidal intertrigo Apply [...] as of this encounter (statuses as of 02/27/2024) Active Problems Problem Noted Date Diagnosed Date [...] as of this encounter (statuses as of 02/27/2024) Resolved Problems Problem Noted Date Diagnosed Date [...] 12/21/2016 Diabetes mellitus 01/05/2014 12/21/2016 LEYVA RESEARCH OTHER*[id number] 01/05/2014 12/21/2016 Axillary pain 11/03/2013 12/21/2016 Obesity, [...] cath 09/201008/26/2011 12/21/2016 FOLLOWING SURGERY, UNSPECIFI ED ([facility] BSO 08/25/2011) 08/26/2011 12/21/2016 ADVANCE DIRECTIVE INFORMATION 04/17/2011 12/21/2016 Overview: Yes, Patient instructed to provide copy of advance directive for provider to review and to be scanned into Electronic Medical Record ADVANCE DIRECTIVE INFORMATION 03/01/2011 12/21/2016 Overview: Yes, Patient instructed to provide copy of advance directive for provider to review and to be scanned into Electronic Medical Record [employer] V710 Clinical Trial*[id number] 12/22/2010 04/14/2011 S/P aortic valve replacement 12/01/2010 08/26/2011 S/P AORTIC VALVE REPLACEMENT - #25 pericardial Mc valve 11/01/2010 06/28/2018 Overview: Aortic valve replacement with #25 pericardial Mc valve, model 2800TFX, serial number [id number] (Dr. Walker) [facility] V710 Clinical Trial*[id number] 10/18/2010 11/21/2010 Type 2 diabetes mellitus wit [...] as of this encounter (statuses as of 02/27/2024) Immunizations Name Administration Dates Next Due COVID-19 mRNA, LNP-s, No Pre serve, 2-Dose Series (Moderna) 10/25/2021,02/16/2021,01/18/2021 HEP A - Hepatitis A (Adult > 18 yrs) 06/07/2018, 12/05/2017 Hepatitis B, 20+ yrs 06/07/2018,01/08/20 18,12/05/2017,06/15,10/27/2013,09/12/2013 Pneumococcal Conjugate Vacci ne, 20-valent ([id number]) 06/22/2023 Pneumococcal Polysaccharide PPV23 (Pneumovax) 01/02/2008 Seasonal [...] this encounter Progress Notes * Neeraj Matthew, [facility] - 02/27/2024 1:03 PM EDT Medication Therapy Disease Management Clinic - Diabetes Management Progress Note Patient Phone Numbers After connecting to the patient via telephone, the patient was identified by name and date of . Patient was then informed that this was a telephone call only visit. The patient agreed to participate. Visit Disposition: Routine follow-up Total call duration was 5 minutes. DIABETES: Current diabetic medications: Tresiba 30 units once daily Ozempic 2mg every Sunday Metformin 1000mg twice daily (On Hold) Novolog CF 2/50 over 200 (Flextouch pen) - give before every meal) Omnipod Insulin Pump (NOT started yet, plan to restart pump on 02/21/24 Insulin: Novolog vial insulin Basal Rate: 0.55 units/hour Bolus: 4 units with breakfast, 4 units with lunch and 4 units with supper Bolus Calculator: on and using ICR: 18 ISF: 50 Blood Glucose Goal Limits: 70-180 Bolus Calculator: Target B Correct above: 180 Minimum B Active Insulin Time: 2 Medication Injection Site: Arm and Abdomen Her daughter called [employer] and they were to ship her a Dexcom reader. She stated she was to also get an Omnipod reader also. 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 Neeraj Romero RPh, CACP, CDE Clinical Pharmacist Medication Therapy Management Clinic 02/27/2024 1:03 PM documented in this encounter Plan of Treatment Upcoming Encounters Date Type Department Care Team (Late st Contact Info) Description 03/04/2024 11:00 AM EDT Home Visit Care Coordination and Integration [address] [place] [address] Angelica Navas, Community Health Earth Science Teacher [address] [place] [address] 03/06/2024 7:45 AM EDT Office Visit Ophthalmology, [facility] [address] [place] [address] Ramsey Burnett, DO [address] [place] [address] 03/25/2024 10:00 AM EDT Home Visit Adry at Home, [facility] [address] [place] [address] Jaycee Sorto, RN [address] [place] [address] 06/03/2024 9:00 AM EDT Telemedicine Psychiatry Mian MuraliRichardson [address] [place] [address] Janice Atwood MD [address] [place] [address] 07/17/2024 9:30 AM EDT Office Visit Cardiology, [facility] 132 [place] [address] Roberto Carlos Muniz, [address] [place] [address] 08/12/2024 9:20 AM EST Office Visit Family Practice [facility] [address] [place] [address] Gregory Rausch MD [address] [place] [address] 11/27/2024 9:40 AM EST Office Visit Nephrology, [facility] 200 [facility] [place] [address] Fidelina Baumann MD [address] [place] [address] Scheduled Procedures Name Priority Associated Diagnoses Date/Ti [...] 10) 12/26/2023 12/25/2023 CKD PHOS USE SMARTSET 60915 06/18/202405/26, 06/16/2023, 06/15/2023, Additional history exists GFR 07/09/2024 01/08/2024, 09/25, 08/02/2023, Additional history exists HbA1c 08/01/2024 01/30/2024, 08/25, 07/31/2023, Additional history exists Diabetic Eye Exam 09/13/2024 09/13/2023, , 09/13/2023, Additional history exists B-12 09/18/2024 09/18/2023, 08/24, 2020, Additional history exists Albumin/Creatinine Ratio 01/07/2025 024, 03/09/2023, 12/22/2022, Additional history exists CKD HGB USE SMARTSET 17965 01/07/202501/07, 01/08/2024, 10/15/2023, Additional history exists TSH [...] this encounter Medical Devices Implanted Type Area Casework Specialist Device Identifier Shelf Expiration Date Model / Serial / Lot Cath Roselia Single Lumen - [id number] Implanted:Qty : 1 on 03/12/2008 at [facility] Left: Chest [employer] *DO NOT USE* 07/25/2012 21-4053-24 / / [id number] Sut Steel 6 M654g - [id number] Implanted:Qty : 1 on 11/01/2010 at OR [facility] N/A: Chest DO NOT USE M654G / / Sut Steel 6 M654g - [id number] Implanted:Qty : 1 on 11/01/2010 at OR [facility] N/A: Chest DO NOT USE M654G / / Valve Tarsha Aortic [id number] - [id number] Implanted:Qty : 1 on 11/01/2010 at OR [facility] N/A: Heart [employer] DANIEL 05/20/2012 2800TFX-25 / / [id number] Mesh Soft [id number] - [id number] Implanted:Qty : 1 on 10/10/2019 by Gigi Hendrickson MD at [place] [facility] N/A: Abdomen CR BARD : DAVOL [id number] 05/21/2024 [id number] / / [id number] Lens 22.5 Sn60wf - [id number] - [id number] Implanted:Qty : 1 on 09/15/2020 by Renaldo Cook, Cece Acosta MD at OR [facility] Right: Eye IVA : SURGICAL [id number] 05/13/2025 SN60 WF.225 / [id number] / [id number] Lens 21.5 Sn60wf - [id number] - [id number] Implanted:Qty : 1 on 12/19/2023 by Ramsey Burnett DO at OR [facility] Left: Eye IVA : SURGICAL 12/03/2024 SN60WF.2 15 / [id number] / documented as of this encounter Visit Diagnoses Diagnosis Type 2 diabetes mellitus with hemoglobin A1c goal of less than 8.0% (HCC)- Primary Type 2 diabetes mellitus with stage 3a chronic kidney disease, with long-term current use of insulin (HCC) Type 2 diabetes mellitus with diabetic peripheral angiopathy without gangrene, with long-term current use of insulin (HCC) documented in this encounter Additional Health [...] patient or by statute hierarchy) Care Teams Cleaner Assistant Relationship Specialty Start Date End Date Gregory Rausch MD [address] [place] [address] PCP - General Family Medicine 02/12/20 documented as of this encounter
--- OUTSIDE RECORDS SUMMARY | 2024-06-05 14:49 | External Medical Summary | Summary of Care ---
Author Name Unknown Organization [facility] Address [address] [place] [address] Phone [phone] Care Team Providers Care Handstitching Machine Collar Feller Name Role Phone Gregory Rausch MD Primary Care Provider [phone] Reason for Visit * Reason Onset Date Comments Med Request 02/26/2024 Encounter Details Date Type Department Care Team (Late st Contact Info) Description 02/26/2024 Telephone Family Practice [facility] [address] [place] [address] Gregory Rausch MD [address] [facility] [place] [address] Med Request (/) Allergies [...] Capsules by mouth in the morning. 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) ([facility]) Take 1 Tablet by mouth [...] MEDICATIONS 90 Tablet 2 01/10/2024 Active Nystatin 477360 UNIT/GM External Powder (Nystop)Indications: Candidal intertrigo Apply [...] eye 09/28/2020 Coronary artery disease invo lving [place] coronary artery of [place] heart without angina pectoris 12/16/2019 Last Assessment [...] 12/21/2016 Diabetes mellitus 01/05/2014 12/21/2016 LEYVA RESEARCH OTHER*[id number] 01/05/2014 12/21/2016 Axillary pain 11/03/2013 12/21/2016 Obesity, [...] Record [facility] V710 Clinical Trial*[id number] 12/22/2010 04/14/2011 S/P aortic valve replacement 12/01/2010 08/26/2011 S/P AORTIC VALVE REPLACEMENT - #25 pericardial Mc valve 11/01/2010 06/28/2018 Overview: Aortic valve replacement with #25 pericardial Mc valve, model 2800TFX, serial number [id number] (Dr. Walker) [facility] V710 Clinical Trial*[id number] 10/18/2010 11/21/2010 Type 2 diabetes mellitus wit [...] 06/07/2018,01/08/20 18,12/05/2017,06/15,10/27/2013,09/12/2013 Pneumococcal Conjugate Vacci ne, 20-valent ([id number]) 06/22/2023 Pneumococcal Polysaccharide PPV23 (Pneumovax) 01/02/2008 Seasonal [...] advise patient Thank you, Natasha Wray CPhT Cash Processor [facility] ([facility])(formerly telepharmacy) 02/26/2024,11:23 AM documented in this encounter Plan of Treatment Upcoming Encounters Date Type Department Care Team (Late st Contact Info) Description 02/27/2024 6:00 PM EDT Pharmacy Pharmacy, [facility] 200 [facility] [address] Pharmacist1, [facility] [address] 03/04/2024 11:00 AM EDT Home Visit Care Coordination and Integration [address] [place] [address] Angelica Navas, Community Health Policy Value Calculator [address] [place] [address] 03/06/2024 7:45 AM EDT Office Visit Ophthalmology, [facility] 132 [facility] [place] [address] Ramsey Burnett, DO [address] [place] [address] 03/25/2024 10:00 AM EDT Home Visit [place] at Home, [facility] 132 [facility] [place] [address] Jaycee Sorto RN 132 [facility] [place] [address] 06/03/2024 9:00 AM EDT Telemedicine Psychiatry [place] [address] [place] [phone] Janice Atwood MD [address] [place] [address] 07/17/2024 9:30 AM EDT Office Visit Cardiology, [facility] 132 [facility] [place] [address] Roberto Carlos Muniz, DO [address] [place] [address] 08/12/2024 9:20 AM EST Office Visit Family Practice [facility] [address] [place] [address] Gregory Rausch MD [address] [place] [address] 11/27/2024 9:40 AM EST Office Visit Nephrology, [facility] [address] [place] [address] Fidelina Baumann MD [address] [place] [address] Scheduled Procedures Name Priority Associated Diagnoses Date/Ti [...] 10) 12/26/2023 12/25/2023 CKD PHOS USE SMARTSET 87683 06/18/202405/26, 06/16/2023, 06/15/2023, Additional history exists GFR 07/09/2024 01/08/2024, 09/25, 08/02/2023, Additional history exists HbA1c 08/01/2024 01/30/2024, 08/25, 07/31/2023, Additional history exists Diabetic Eye Exam 09/13/2024 09/13/2023, , 09/13/2023, Additional history exists B-12 09/18/2024 09/18/2023, 08/24, 2020, Additional history exists Albumin/Creatinine Ratio 01/07/2025 024, 03/09/2023, 12/22/2022, Additional history exists CKD HGB USE SMARTSET 96613 01/07/202501/07, 01/08/2024, 10/15/2023, Additional history exists TSH [...] this encounter Medical Devices Implanted Type Area Registered Nurse Fetal Device Identifier Shelf Expiration Date Model / Serial / Lot Cath Roselia Single Lumen - [id number] Implanted:Qty : 1 on 03/12/2008 at OR [facility] Left: Chest [employer] *DO NOT USE* 07/25/2012 21-4053-24 / / [id number] Sut [facility] 6 M654g - [id number] Implanted:Qty : 1 on 11/01/2010 at OR [facility] N/A: Chest DO NOT USE M654G / / Sut Steel 6 M654g - [id number] Implanted:Qty : 1 on 11/01/2010 at OR [facility] N/A: Chest DO NOT USE M654G / / Valve Tarsha Aortic [id number] - [id number] Implanted:Qty : 1 on 11/01/2010 at OR [facility] N/A: Heart [employer] DANIEL 05/20/2012 2800TFX-25 / / [id number] Mesh Soft 83g32cu - [id number] Implanted:Qty : 1 on 10/10/2019 by Gigi Hendrickson MD at OR [facility] N/A: Abdomen CR BARD : DAVOL [id number] 05/21/2024 [id number] / / [id number] Lens 22.5 Sn60wf - [id number] - [id number] Implanted:Qty : 1 on 09/15/2020 by Renaldo Cook, Cece Acosta MD at OR [facility] Right: Eye IVA : SURGICAL [id number] 05/13/2025 SN60 WF.225 / [id number] / [id number] Lens 21.5 Sn60wf - [id number] - [id number] Implanted:Qty : 1 on 12/19/2023 by Ramsey Burnett DO at OR [facility] Left: Eye IVA : SURGICAL 12/03/2024 SN60WF.2 15 / [id number] [id number] / documented as of this encounter [...] patient or by statute hierarchy) Care Teams Handstitching Machine Collar Feller Relationship Specialty Start Date End Date Gregory Rausch MD [address] [place] [address] PCP - General Family Medicine 02/12/20 documented as of this encounter
--- OUTSIDE RECORDS SUMMARY | 2024-06-05 14:49 | External Medical Summary | Summary of Care ---
Author Name Unknown Organization [facility] Address [address] [place] [address] Phone [phone] Care Team Providers Care Fine Patcher Name Role Phone Gregory Rausch MD Primary Care Provider [phone] [phone] Reason for Visit * Reason Onset Date Comments Remote Patient Monitoring Alert 02/27/2024 Encounter Details Date Type Department Care Team (Late st Contact Info) Description 02/27/2024 Home Monitoring Care Coordination [address] [place] [address] Lexy Powell, MACHINE REBUILDER HTN, goal below 140/90* Allergies Active Allergy Reactions Criticality Noted Date [...] 2, not at goal ([facility]) 3 every 15 minutes until glucose [...] MEDICATIONS 90 Tablet 2 01/10/2024 Active Nystatin 671915 UNIT/GM External Powder (Nystop)Indications: Candidal intertrigo Apply [...] eye 09/28/2020 Coronary artery disease invo lving [place] coronary artery of [place] heart without angina pectoris 12/16/2019 Last Assessment [...] 12/21/2016 Diabetes mellitus 01/05/2014 12/21/2016 LEYVA RESEARCH OTHER*[id number] 01/05/2014 12/21/2016 Axillary pain 11/03/2013 12/21/2016 Obesity, [...] 09/201008/26/2011 12/21/2016 FOLLOWING SURGERY, UNSPECIFI ED ([facility] BSO 08/25/2011) 08/26/2011 12/21/2016 ADVANCE DIRECTIVE INFORMATION 04/17/2011 12/21/2016 Overview: Yes, Patient instructed to provide copy of advance directive for provider to review and to be scanned into Electronic Medical Record ADVANCE DIRECTIVE INFORMATION 03/01/2011 12/21/2016 Overview: Yes, Patient instructed to provide copy of advance directive for provider to review and to be scanned into Electronic Medical Record [facility] V710 Clinical Trial*[id number] 12/22/2010 04/14/2011 S/P aortic valve replacement 12/01/2010 08/26/2011 S/P AORTIC VALVE REPLACEMENT - #25 pericardial Mc valve 11/01/2010 06/28/2018 Overview: Aortic valve replacement with #25 pericardial Mc valve, model 2800TFX, serial number [id number] (Dr. Walker) [facility] V710 Clinical Trial*[id number] 10/18/2010 11/21/2010 Type 2 diabetes mellitus wit [...] 06/07/2018,01/08/20 18,12/05/2017,06/15,10/27/2013,09/12/2013 Pneumococcal Conjugate Vacci ne, 20-valent ([id number]) 06/22/2023 Pneumococcal Polysaccharide PPV23 (Pneumovax) 01/02/2008 Seasonal [...] Progress Notes * Neeraj Matthew, [facility] - 02/27/2024 3:49 PM EDT [facility] - Hypertension Management This patient was contacted as part of the [facility] Nephrology HTN remote monitoring menhaden vessel pilot. Blood Pressure Goal: 130/80 mmHg Type of Alert: Yellow Current Hypertension Medications: Metoprolol Tartrate 25mg twice daily Previous antihypertensive use: diuretics stopped by cardiology Experiencing symptoms related to elevated BP: No Systolic Diastolic HR 5-Feb 159 75 119 -Feb 138 83 111 -January 149 71 95 125 67 87 163 85 110 -January 165 90 104 Systolic Diastolic HR Average 150 79 104 Hi 165 90 119 Lo 125 67 87 Range 40 23 32 BP Readings from Last 3 Encounters: 02/13/24 132/70 02/04/24 134/68 01/22/24 160/80 Pulse Readings from Last 3 Encounters: 02/13/24 108 02/04/24 72 01/22/24 81 Recent Labs Units 01/08/24 1229 01/08/24 1222 10/15/23 1156 08/02/23 0000 07/31/23 1134 SODIUM - [facility] mmol/L -- 134* 131* -- 135 POTASSIUM - [facility] mmol/L -- 5.1 3.6 -- 4.0 POTASSIUM, RANDOM URINE - [facility] mmol/L 50.2 -- -- -- -- POTASSIUM-OUTSIDE LAB MMOL/L -- -- -- 3.0* -- CHLORIDE - [facility] mmol/L -- 95* 86* -- 91* CO2 - [facility] mmol/L -- 27 26 -- 23 CREATININE - [facility] mg/dL -- 1.0 1.3* -- 0.8 CREATININE-OUTSIDE LAB MG/DL -- -- -- 0.80 -- BUN - [facility] mg/dL -- 11 27* -- 7 ASSESSMENT & PLAN: Spoke to patient and she had taken BP after going to [facility] and having increased activity and stress. Patient educated on the following: Reviewed proper [...] log or in a journal MEDICATION CHANGES: none Hypertension Medications: Metoprolol Tartrate 25mg twice daily HEALTH MAINTENANCE INTERVENTIONS: Labs: Ordered & Scheduled: Up to date FOLLOW UP: As needed. Neeraj Romero RPh Clinical Pharmacist - Counter Manager Medication Therapy Management Clinic 02/27/2024, 3:49 PM * Lexy Powell LPN - 02/27/2024 2:46 PM EDT Jovita Irina Rose [phone] Jovita Rose is currently participating in the [facility] Hypertension Management Program and had areading on 02/27/2024 of 159/75. Pt has alerted for an Average BP over 7 days > 140/90 . Parameters are currently set as follows: Average BP over 7 days > 140/90 Singular Systolic BP Reading < 90 or > 180 Singular Diastolic BP Reading <50 or > 120 Patient is not reporting new symptoms or [...] Description 02/27/2024 6:00 PM EDT Pharmacy Pharmacy, [facility] [address] [facility] [place] [address] Pharmacist1, [facility] 200 [facility] [place] [address] Type 2 diabetes mellitus with hemoglobin A1c goal of less than 8.0% (HCC)*; Type 2 diabetes mellitus with stage 3a chronic kidney disease, with long-term current use of insulin (HCC); Type 2 diabetes mellitus with diabetic peripheral angiopathy without gangrene, with long-term current use of insulin (HCC) 03/04/2024 11:00 AM EDT Home Visit Care Coordination and Integration [address] [place] [address] Angelica Navas, Community Health Gas Scrubber Operator [address] [place] [address] 03/06/2024 7:45 AM EDT Office Visit Ophthalmology, [facility] 132 [facility] [place] [address] Ramsey Burnett, DO [address] [place] [address] 03/25/2024 10:00 AM EDT Home Visit [place], [facility] 132 [facility] [place] [address] Jaycee Sorto, RN 132 [facility] [place] [address] 06/03/2024 9:00 AM EDT Telemedicine Psychiatry Cris Mercedes [address] [place] [address] Janice Atwood MD [address] [place] [address] 07/17/2024 9:30 AM EDT Office Visit Cardiology, [facility] [address] [place] [address] Roberto Carlos Muniz, [address] [place] [address] 08/12/2024 9:20 AM EST Office Visit Family Practice [facility] [address] [place] [address] Gregory Rausch MD [address] [place] [address] 11/27/2024 9:40 AM EST Office Visit Nephrology, [facility] 200 [facility] [place] [address] Fidelina Baumann MD [address] [place] [address] Scheduled Procedures Name Priority Associated Diagnoses Date/Ti [...] 10) 12/26/2023 12/25/2023 CKD PHOS USE SMARTSET 37445 06/18/202405/26, 06/16/2023, 06/15/2023, Additional history exists GFR 07/09/2024 01/08/2024, 09/25, 08/02/2023, Additional history exists HbA1c 08/01/2024 01/30/2024, 08/25, 07/31/2023, Additional history exists Diabetic Eye Exam 09/13/2024 09/13/2023, , 09/13/2023, Additional history exists B-12 09/18/2024 09/18/2023, 08/24, 2020, Additional history exists Albumin/Creatinine Ratio 01/07/2025 024, 03/09/2023, 12/22/2022, Additional history exists CKD HGB USE SMARTSET 81301 01/07/202501/07, 01/08/2024, 10/15/2023, Additional history exists TSH [...] this encounter Medical Devices Implanted Type Area Sales Trader Device Identifier Shelf Expiration Date Model / Serial / Lot Cath Roselia Single Lumen - [id number] Implanted:Qty : 1 on 03/12/2008 at OR [facility] Left: Chest [facility] *DO NOT USE* 07/25/2012 21-4053-24 / / [id number] Sut Steel 6 M654g - [id number] Implanted:Qty : 1 on 11/01/2010 at OR [facility] N/A: Chest DO NOT USE M654G / / Sut Steel 6 M654g - [id number] Implanted:Qty : 1 on 11/01/2010 at OR [facility] N/A: Chest DO NOT USE M654G / / Valve Tarsha Aortic [id number] - [id number] Implanted:Qty : 1 on 11/01/2010 at OR [facility] N/A: Heart MC [employer] DANIEL 05/20/2012 2800TFX-25 / / [id number] Mesh Soft [id number] - [id number] Implanted:Qty : 1 on 10/10/2019 by Gigi Hendrickson MD at [place] [facility] N/A: Abdomen CR BARD : DAVOL [id number] 05/21/2024 [id number] / / [id number] Lens 22.5 Sn60wf - [id number] - [id number] Implanted:Qty : 1 on 09/15/2020 by Cece Roland MD at [facility] Right: Eye IVA : SURGICAL [id number] 05/13/2025 SN60 WF.225 / [id number] / [id number] Lens 21.5 Sn60wf - [id number] - [id number] Implanted:Qty : 1 on 12/19/2023 by Ramsey Burnett DO at OR [facility] Left: Eye IVA : SURGICAL 12/03/2024 SN60WF.2 15 / [id number] / documented as of this encounter Visit Diagnoses Diagnosis Type 2 diabetes mellitus with hemoglobin A1c goal of less than 8.0% (HCC)- Primary Type 2 diabetes mellitus with stage 3a chronic kidney disease, with long-term current use of insulin (HCC) Type 2 diabetes mellitus with diabetic peripheral angiopathy without gangrene, with long-term current use of insulin (HCC) HTN, goal below 140/90- Primary Unspecified essential hypertension documented in this [...] patient or by statute hierarchy) Care Teams Fine Patcher Relationship Specialty Start Date End Date Gregory Rausch MD [address] [place] [address] PCP - General Family Medicine 02/12/20 documented as of this encounter
--- OUTSIDE RECORDS SUMMARY | 2024-06-05 14:49 | External Medical Summary | Summary of Care ---
Author Name Unknown Organization [facility] Address [address] [place] [address] Phone [phone] Care Team Providers Care Control Board Operator Name Role Phone Gregory Rausch MD Primary Care Provider [phone] Reason for Visit * Reason Onset Date Comments Med Request 02/26/2024 Encounter Details Date Type Department Care Team (Late st Contact Info) Description 02/26/2024 Telephone Family Practice [facility] [address] [place] [address] Gregory Rausch MD [address] [facility] [place] [address] Med Request (/) [...] Capsules by mouth in the morning. Active VotizenTouch Verio In Vitro Strip (Glucose Blood) Use [...] MEDICATIONS 90 Tablet 2 01/10/2024 Active Nystatin 440468 UNIT/GM External Powder (Nystop)Indications: Candidal intertrigo Apply [...] eye 09/28/2020 Coronary artery disease invo lving [place] coronary artery of [place] heart without angina pectoris 12/16/2019 Last Assessment [...] 12/21/2016 Diabetes mellitus 01/05/2014 12/21/2016 LEYVA RESEARCH OTHER*[id number] 01/05/2014 12/21/2016 Axillary pain 11/03/2013 12/21/2016 Obesity, [...] 12/21/2016 FOLLOWING SURGERY, UNSPECIFI ED ([facility] BSO 08/25/2011) 08/26/2011 12/21/2016 ADVANCE DIRECTIVE INFORMATION 04/17/2011 12/21/2016 Overview: Yes, Patient instructed to provide copy of advance directive for provider to review and to be scanned into Electronic Medical Record ADVANCE DIRECTIVE INFORMATION 03/01/2011 12/21/2016 Overview: Yes, Patient instructed to provide copy of advance directive for provider to review and to be scanned into Electronic Medical Record [facility] V710 Clinical Trial*[id number] 12/22/2010 04/14/2011 S/P aortic valve replacement 12/01/2010 08/26/2011 S/P AORTIC VALVE REPLACEMENT - #25 pericardial Mc valve 11/01/2010 06/28/2018 Overview: Aortic valve replacement with #25 pericardial Mc valve, model 2800TFX, serial number [id number] (Dr. Walker) [facility] V710 Clinical Trial*[id number] 10/18/2010 11/21/2010 Type 2 diabetes mellitus wit [...] 06/07/2018,01/08/20 18,12/05/2017,06/15,10/27/2013,09/12/2013 Pneumococcal Conjugate Vacci ne, 20-valent ([id number]) 06/22/2023 Pneumococcal Polysaccharide PPV23 (Pneumovax) 01/02/2008 Seasonal [...] advise patient Thank you, Natasha Wray CPhT Director Of Regional Sales Centralized Clinical Pharmacy Services (CCPS)(formerly telepharmacy) 02/26/2024,11:23 AM documented in this encounter Plan of Treatment Upcoming Encounters Date Type Department Care Team (Late st Contact Info) Description 02/27/2024 6:00 PM EDT Pharmacy Pharmacy, [facility] Janie [address] [place] [address] Pharmacist1, [facility] Sp [address] [place] [address] 03/04/2024 11:00 AM EDT Home Visit Care Coordination and Integration [address] [place] [address] Angelica Navas, Community Health Recreational Vehicle Repairer [address] [place] [address] 03/06/2024 7:45 AM EDT Office Visit Ophthalmology, [facility] 132 [place] [address] Ramsey uBrnett DO [address] [facility] [place] [address] 03/25/2024 10:00 AM EDT Home Visit [facility], [facility] 132 [facility] [place] [address] Jaycee Sorto RN 132 [place] [address] 06/03/2024 9:00 AM EDT Telemedicine Psychiatry [facility] [address] [place] [address] Janice Atwood MD [address] [place] [address] 07/17/2024 9:30 AM EDT Office Visit Cardiology, [facility] 132 [facility] [place] [address] Roberto Carlos Muniz, DO [facility] [place] [address] 08/12/2024 9:20 AM EST Office Visit Family Practice [facility] [address] [facility] [place] [address] Gregory Rausch MD [address] [facility] [place] [address] 11/27/2024 9:40 AM EST Office Visit Nephrology, [facility] [place] [address] [facility] [place] [facility] [place] [address] Fidelina Baumann MD 200 [facility] [place] [address] Scheduled Procedures Name Priority Associated Diagnoses Date/Ti [...] 10) 12/26/2023 12/25/2023 CKD PHOS USE SMARTSET 74598 06/18/202405/26, 06/16/2023, 06/15/2023, Additional history exists GFR 07/09/2024 01/08/2024, 09/25, 08/02/2023, Additional history exists HbA1c 08/01/2024 01/30/2024, 08/25, 07/31/2023, Additional history exists Diabetic Eye Exam 09/13/2024 09/13/2023, , 09/13/2023, Additional history exists B-12 09/18/2024 09/18/2023, 08/24, 2020, Additional history exists Albumin/Creatinine Ratio 01/07/2025 024, 03/09/2023, 12/22/2022, Additional history exists CKD HGB USE SMARTSET 66276 01/07/202501/07, 01/08/2024, 10/15/2023, Additional history exists TSH [...] encounter Medical Devices Implanted Type Area Gas Regulator Repairer Device Identifier Shelf Expiration Date Model / Serial / Lot Cath Roselia Single Lumen - [id number] Implanted:Qty : 1 on 03/12/2008 at OR [facility] Left: Chest [facility] *DO NOT USE* 07/25/2012 21-4053-24 / / [id number] Sut Steel 6 M654g - [id number] Implanted:Qty : 1 on 11/01/2010 at OR [facility] N/A: Chest DO NOT USE M654G / / Sut Steel 6 M654g - [id number] Implanted:Qty : 1 on 11/01/2010 at OR [facility] N/A: Chest DO NOT USE M654G / / Valve Tarsha Aortic [id number] - [id number] Implanted:Qty : 1 on 11/01/2010 at OR [facility] N/A: Heart MC [employer]ESCI[employer] DANIEL 05/20/2012 2800TFX-25 / / [id number] Mesh Soft [id number] - [id number] Implanted:Qty : 1 on 10/10/2019 by Gigi Hendrickson [place] [facility] [place]A: Abdomen CR BARD : DAVOL [id number] 05/21/2024 [id number] / / [id number] Lens 22.5 Sn60wf - [id number] - [id number] Implanted:Qty : 1 on 09/15/2020 by Renaldo Cook, Cece Acosta MD at OR [facility] Right: Eye IVA : SURGICAL [id number] 05/13/2025 SN60 WF.225 / [id number] / [id number] Lens 21.5 Sn60wf - [id number] - [id number] Implanted:Qty : 1 on 12/19/2023 by Ramsey Burnett DO at OR [facility] Left: Eye IVA : SURGICAL 12/03/2024 SN60WF.2 15 / [id number] / documented as of this encounter [...] patient or by statute hierarchy) Care Teams Control Board Operator Relationship Specialty Start Date End Date Gregory Rausch MD [address] [place] [address] PCP - General Family Medicine 02/12/20 documented as of this encounter
--- OUTSIDE RECORDS SUMMARY | 2024-06-05 14:49 | External Medical Summary | Summary of Care ---
Author Name Unknown Organization [facility] Address [address] [place] [address] Phone [phone] Care Team Providers Care Cutch Cleaner Name Role Phone Gregory Rausch MD Primary Care Provider [phone] Reason for Visit * Reason Onset Date Comments Med Request 02/26/2024 Encounter Details Date Type Department Care Team (Late st Contact Info) Description 02/26/2024 Telephone Family Practice [facility] [address] [place] [address] Gregory Rausch MD [address] [facility] [place] [address] Med Request (/) Allergies [...] Capsules by mouth in the morning. Active AGEIA TechnologiesTouch Verio In Vitro Strip (Glucose Blood) Use [...] of insulin ([facility]) Inject 30 Units under the skin [...] MEDICATIONS 90 Tablet 2 01/10/2024 Active Nystatin 950634 UNIT/GM External Powder (Nystop)Indications: Candidal intertrigo Apply [...] 12/21/2016 Diabetes mellitus 01/05/2014 12/21/2016 LEYVA RESEARCH OTHER*[id number] 01/05/2014 12/21/2016 Axillary pain 11/03/2013 12/21/2016 Obesity, [...] 09/201008/26/2011 12/21/2016 FOLLOWING SURGERY, UNSPECIFI ED ([facility] BSO 08/25/2011) 08/26/2011 12/21/2016 ADVANCE DIRECTIVE INFORMATION [...] [facility] V[facility] Clinical Trial*[id number] 12/22/2010 04/14/2011 S/P aortic valve replacement 12/01/2010 08/26/2011 S/P AORTIC VALVE REPLACEMENT - #25 pericardial Mc valve 11/01/2010 06/28/2018 Overview: Aortic valve replacement with #25 pericardial Mc valve, model 2800TFX, serial number [id number] (Dr. Walker) [facility] V710 Clinical Trial*[id number] 10/18/2010 11/21/2010 Type 2 diabetes mellitus wit [...] 06/07/2018,01/08/20 18,12/05/2017,06/15,10/27/2013,09/12/2013 Pneumococcal Conjugate Vacci ne, 20-valent ([id number]) 06/22/2023 Pneumococcal Polysaccharide PPV23 (Pneumovax) 01/02/2008 Seasonal [...] encounter Miscellaneous Notes * Telephone Encounter - Natasha Wray CPhT - 02/26/2024 11:22 AM EDT Patient calling because 2 of the medication sent to the pharmacy are OTC and insurance will not cover. Patient is asking for alternatives for Aquaphor and Florastor. Please advise patient Thank you, Natasha Wray CPhT Aircraft Machinist Centralized Clinical Pharmacy Services (CCPS)(formerly telepharmacy) 02/26/2024,11:23 AM documented in this encounter Plan of Treatment Upcoming Encounters Date Type Department Care Team (Late st Contact Info) Description 02/27/2024 6:00 PM EDT Pharmacy Pharmacy, [facility] [address] [place] [address] Pharmacist1, [facility] [address] [facility] [place] [address] 03/04/2024 11:00 AM EDT Home Visit Care Coordination and Integration [address] [place] [address] Angelica Navas, Community Health Promotions Assistant Sales Marketing [address] [place] [address] 03/06/2024 7:45 AM EDT Office Visit Ophthalmology, [facility] 132 [facility] [place] [address] Ramsey Burnett DO [address] [place] [address] 03/25/2024 10:00 AM EDT [facility], [facility] 132 [facility] [place] [address] Jaycee Sorto RN 132 [facility] [place] [address] 06/03/2024 9:00 AM EDT Telemedicine Psychiatry [facility] 9 [place] [address] Janice Atwood MD [address] [place] [address] 07/17/2024 9:30 AM EDT Office Visit Cardiology, [facility] 132 [facility] [place] [address] Roberto Carlos Muniz, 132 [facility] [place] [address] 08/12/2024 9:20 AM EST Office Visit Family Practice [facility] 132 [facility] [place] [address] Gregory Rausch MD 132 [facility] [place] [address] 11/27/2024 9:40 AM EST Office Visit Nephrology, [place]ney [place] [address] [place] [place] [address] Fidelina Baumann MD [facility] [place] [address] Scheduled Procedures Name Priority Associated Diagnoses Date/Ti [...] 10) 12/26/2023 12/25/2023 CKD PHOS USE SMARTSET 09183 06/18/202405/26, 06/16/2023, 06/15/2023, Additional history exists GFR 07/09/2024 01/08/2024, 09/25, 08/02/2023, Additional history exists HbA1c 08/01/2024 01/30/2024, 08/25, 07/31/2023, Additional history exists Diabetic Eye Exam 09/13/2024 09/13/2023, , 09/13/2023, Additional history exists B-12 09/18/2024 09/18/2023, 08/24, 2020, Additional history exists Albumin/Creatinine Ratio 01/07/2025 024, 03/09/2023, 12/22/2022, Additional history exists CKD HGB USE SMARTSET 33255 01/07/202501/07, 01/08/2024, 10/15/2023, Additional history exists TSH [...] this encounter Medical Devices Implanted Type Area Tool Maintenance Worker Device Identifier Shelf Expiration Date Model / Serial / Lot Cath Roselia Single Lumen - [id number] Implanted:Qty : 1 on 03/12/2008 at OR [facility] Left: Chest [facility] *DO NOT USE* 07/25/2012 21-4053-24 / / [id number] Sut Steel 6 M654g - [id number] Implanted:Qty : 1 on 11/01/2010 at OR [facility] N/A: Chest DO NOT USE M654G / / Sut Steel 6 M654g - [id number] Implanted:Qty : 1 on 11/01/2010 at OR [facility] N/A: Chest DO NOT USE M654G / / Valve Tarsha Aortic [id number] - [id number] Implanted:Qty : 1 on 11/01/2010 at OR [facility] N/A: Heart MC StentysCIMaimai DANIEL 05/20/2012 2800TFX-25 / / [id number] Mesh Soft [id number] - [id number] Implanted:Qty : 1 on 10/10/2019 by Gigi Hendricks[place] [facility] [place]: Abdomen CR BARD : DAVOL [id number] 05/21/2024 [id number] / / [id number] Lens 22.5 Sn60wf - [id number] - [id number] Implanted:Qty : 1 on 09/15/2020 by Cece Roland MD at OR [facility] Right: Eye IVA : SURGICAL [id number] 05/13/2025 SN60 WF.225 / [id number] / [id number] Lens 21.5 Sn60wf - [id number] - [id number] Implanted:Qty : 1 on 12/19/2023 by Ramsey Burnett DO at OR [facility] Left: Eye IVA : SURGICAL 12/03/2024 SN60WF.2 15 / [id number] / documented as of this encounter [...] Agents on File Name Relationship Healthcare Agent [facility] Gigi Rose Adult Child Health Care Repr esentative (appointed verbally by patient or by statute hierarchy) Care Teams Cutch Cleaner Relationship Specialty Start Date End Date Gregory Rausch MD [address] [place] [address] PCP - General Family Medicine 02/12/20 documented as of this encounter
--- OUTSIDE RECORDS SUMMARY | 2024-06-05 14:50 | External Medical Summary | Summary of Care ---
Author Name Unknown Organization [facility] Address [address] [place] [address] Phone [phone] Care Team Providers Care Analytical Scientist Name Role Phone Gregory Rausch MD Primary Care Provider [phone] Reason for Visit * Reason Onset Date Comments [facility]: Maintenance 02/17/2024 Encounter Details Date Type Department Care Team (Late st Contact Info) Description 02/17/2024 8:30 AM EDT Scheduled Telephone [facility], [facility] [address] [place] [address] [facility], Nurse [facility] [address] [place] [address] Allergies Active Allergy Reactions Criticality Noted Date Comments Adhesive Tape 07/02/2017 Can tolerate band-aids Glycerin Other (Please comment) 03/12/2008 Topical agents with glycein-burning & itching Lactose 12/09/2014 Dairy - gas Lisinopril Cough 01/21/2010 Monosodium Glutamate Edema Other 03/12/2008 Hands and feet Penicillins Rash 11/14/2007 documented as of this encounter (statuses as of 02/17/2024) Medications Medication Sig Dispensed Refills Start Date [...] Capsules by mouth in the morning. Active eduPadTouch Verio In Vitro Strip (Glucose Blood) Use up to 4 times a day E11.9 100 Strip 11 01/22/2024 Active Potassium Chloride [facility] 10 MEQ Oral Tablet Extended ReleaseIndications:A cute on chronic heart failure with preserved ejection fraction (HFpEF) ([facility]) Take 1 Tablet by mouth in the morning and 1 Tablet before bedtime. 180 Tablet 3 01/22/2024 Active Tresiba FlexTouch 200 UNIT/ML Subcutaneous Solution Pen-injector (Insulin Degludec)Indications :Type 2 diabetes mellitus with hemoglobin A1c goal of less than 7.0% ([facility]),Type 2 diabetes mellitus with stage 3a chronic kidney disease, with long-term current use of insulin ([facility]) Inject 30 Units under the skin in the morning. 6 mL 2 01/10/2024 Active BD Pen Needle Short U/F 31G X 8 MMIndications:Type 2 diabetes mellitus with hemoglobin A1c goal of less than 7.0% ([facility]),Type 2 diabetes mellitus with stage 3a chronic kidney disease, with long-term current use of insulin ([facility]) Use with insulin 4 times daily [...] MEDICATIONS 90 Tablet 2 01/10/2024 Active Nystatin 974787 UNIT/GM External Powder (Nystop)Indications: Candidal intertrigo Apply [...] Capsule before bedtime. 60 Capsule 02/07/2024 Active Dexcom G6 House Cleaner Supervisor DeviceIndications:Ty pe 2 diabetes mellitus with stage 3a chronic kidney disease, with long-term current use of insulin (HCC) Use as directed. 1 Each 02/08/2024 Active Dexcom G6 TransmitterIndicatio ns:Type 2 diabetes mellitus with stage 3a chronic kidney disease, with long-term current use of insulin (HCC) Use as directed. 1 Each 02/08/2024 Active Doxycycline Hyclate 100 MG Oral Capsule Take 1 Capsule by mouth in the morning and 1 Capsule before bedtime. Do all this for 10 days. Until gone.. 20 Capsule 02/13/2024 Active documented as of this encounter (statuses as of 02/17/2024) Active Problems Problem Noted Date Diagnosed Date [...] eye 09/28/2020 Coronary artery disease invo lving [place] coronary artery of [place] heart without angina pectoris 12/16/2019 Last Assessment [...] as of this encounter (statuses as of 02/17/2024) Resolved Problems Problem Noted Date Diagnosed Date [...] 12/21/2016 Diabetes mellitus 01/05/2014 12/21/2016 LEYVA RESEARCH OTHER*[id number] 01/05/2014 12/21/2016 Axillary pain 11/03/2013 12/21/2016 Obesity, [...] 09/201008/26/2011 12/21/2016 FOLLOWING SURGERY, UNSPECIFI ED ([facility] BSO 08/25/2011) 08/26/2011 12/21/2016 ADVANCE DIRECTIVE INFORMATION 04/17/2011 12/21/2016 Overview: Yes, Patient instructed to provide copy of advance directive for provider to review and to be scanned into Electronic Medical Record ADVANCE DIRECTIVE INFORMATION 03/01/2011 12/21/2016 Overview: Yes, Patient instructed to provide copy of advance directive for provider to review and to be scanned into Electronic Medical Record [facility] V710 Clinical Trial*[id number] 12/22/2010 04/14/2011 S/P aortic valve replacement 12/01/2010 08/26/2011 S/P AORTIC VALVE REPLACEMENT - #25 pericardial Mc valve 11/01/2010 06/28/2018 Overview: Aortic valve replacement with #25 pericardial Mc valve, model 2800TFX, serial number [id number] (Dr. Walker) [facility] V710 Clinical Trial*[id number] 10/18/2010 11/21/2010 Type 2 diabetes mellitus wit [...] as of this encounter (statuses as of 02/17/2024) Immunizations Name Administration Dates Next Due COVID-19 mRNA, LNP-s, No Pre serve, 2-Dose Series (Moderna) 10/25/2021,02/16/2021,01/18/2021 HEP A - Hepatitis A (Adult > 18 yrs) 06/07/2018, 12/05/2017 Hepatitis B, 20+ yrs 06/07/2018,01/08/20 18,12/05/2017,06/15,10/27/2013,09/12/2013 Pneumococcal Conjugate Vacci ne, 20-valent (Ruzicsy95) 06/22/2023 Pneumococcal Polysaccharide PPV23 (Pneumovax) 01/02/2008 Seasonal [...] Telephone Encounter - Angelica Welch RN - 02/17/2024 10:17 AM EDT [facility] Telephonic Nurse Follow-Up Call [facility] Subprogram: Focused Care Management (3-9 months) Follow Up Call Type: Weekend Call Acute issue requiring follow-up call: Other: audie HELMS Objective: 02/13/2024 10:48 AM 02/04/2024 10:10 AM 01/22/2024 11:29 AM 01/18/2024 12:01 PM 01/08/2024 11:24 AM VITALS ACROSS ENCOUNTERS BP 132/70 134/68 160/80 116/76 152/74 Pulse 108 72 81 90 96 Weight 68.1 kg 70.7 kg 67.7 kg 70.6 kg BMI 30.32 kg/m2 31.45 kg/m2 30.12 kg/m2 31.43 kg/m2 Remote Patient Monitoring: AMC Scale: NO READINGS 8 DAYS Oxygen Needs: NO CHANGE from baseline supplemental oxygen needs DME Needs: NO DME needs identified Medications: New medication(s) added: doxycycline 100 mg po bid x 10 days Subjective: Condition Status: [facility] Current Concerns: UTC-left requesting return call to provide update. Also noted her AMC has not transmitted x 8 days. Will send to for follow up. Scheduled another follow up call for 02/19/24. Disposition: Follow up call scheduled for tomorrow with ICE CREAM MACHINE OPERATOR Coffee Shop Aide Future Visits Scheduled: Future Appointments-next 60 days Date/Time Provider Specialty Dept Phone 02/21/2024 9:00 AM Pharmacist1, [facility] [phone] 03/04/2024 11:00 AM Angelica Navas [facility] Hiv/Aids Care Nurse Family Medicine [phone] 03/06/2024 7:45 AM Ramsey Burnett DO Ophthalmology [phone] 03/25/2024 10:00 AM Jaycee Sorto RN [facility] [phone] 06/03/2024 9:00 AM Janice Atwood MD Psychiatry [phone] 07/17/2024 9:30 AM (Arrive by 9:15 AM) Roberto Carlos Muniz DO Cardiology [phone] 08/12/2024 9:20 AM (Arrive by 9:05 AM) Gregory Rausch MD Family Medicine [phone] 11/27/2024 9:40 AM (Arrive by 9:25 AM) Fidelina Baumann MD Nephrology [phone] Angelica Welch, PRBAHA documented in this encounter Plan of Treatment Upcoming Encounters Date Type Department Care Team (Late st Contact Info) Description 02/19/2024 12:45 PM EDT Scheduled Telephone [facility], [address] [place] [address] Coordinator, [facility] 132 [facility] [place] [address] 02/21/2024 9:00 AM EDT Office Visit Pharmacy, [facility] 200 [facility] [place] [address] Pharmacist1, [facility] [place] [address] 03/04/2024 11:00 AM EDT Home Visit Care Coordination and Integration [address] [place] [address] Angelica Navas, Community Health Hiv/Aids Care Nurse [address] [place] [address] 03/06/2024 7:45 AM EDT Office Visit Ophthalmology, [facility] 132 [facility] [place] [address] Ramsey Burnett, DO 21 [place] [address] 03/25/2024 10:00 AM EDT Home Visit [facility], [facility] 132 [facility] [place] [address] Jaycee Sorto, RN 132 [place] [address] 06/03/2024 9:00 AM EDT Telemedicine Psychiatry [facility] [address] [place] [address] Janice Atwood MD [address] [place] [address] 07/17/2024 9:30 AM EDT Office Visit Cardiology, [facility] 132 [facility] [place] [address] Roberto Carlos Muniz, DO 132 [place] [address] 08/12/2024 9:20 AM EST Office Visit [facility] [address] [place] [address] Gregory Rausch MD [address] [place] [address] 11/27/2024 9:40 AM EST Office Visit Nephrology, [facility] 200 [facility] [place] [address] Fidelina Baumann MD [address] [place] [address] Scheduled Procedures Name Priority Associated Diagnoses Date/Ti [...] 10) 12/26/2023 12/25/2023 CKD PHOS USE SMARTSET 14748 06/18/202405/26, 06/16/2023, 06/15/2023, Additional history exists GFR 07/09/2024 01/08/2024, 09/25, 08/02/2023, Additional history exists HbA1c 08/01/2024 01/30/2024, 08/25, 07/31/2023, Additional history exists Diabetic Eye Exam 09/13/2024 09/13/2023, , 09/13/2023, Additional history exists B-12 09/18/2024 09/18/2023, 08/24, 2020, Additional history exists Albumin/Creatinine Ratio 01/07/2025 024, 03/09/2023, 12/22/2022, Additional history exists CKD HGB USE SMARTSET 45781 01/07/202501/07, 01/08/2024, 10/15/2023, Additional history exists TSH [...] this encounter Medical Devices Implanted Type Area Telephone Betting Clerk Device Identifier Shelf Expiration Date Model / Serial / Lot Cath Roselia Single Lumen - [id number] Implanted:Qty : 1 on 03/12/2008 at [facility] Left: Chest [employer] *DO NOT USE* 07/25/2012 21-4053-24 / / [id number] Sut [facility] 6 M654g - [id number] Implanted:Qty : 1 on 11/01/2010 at [facility] N/A: Chest DO NOT USE M654G / / Sut Steel 6 M654g - [id number] Implanted:Qty : 1 on 11/01/2010 at [facility] N/A: Chest DO NOT USE M654G / / Valve Tarsha Aortic [id number] - [id number] Implanted:Qty : 1 on 11/01/2010 at OR [facility] N/A: Heart MC [employer]ESCI[employer]ES DANIEL 05/20/2012 2800TFX-25 / / [id number] Mesh Soft [id number] - [id number] Implanted:Qty : 1 on 10/10/2019 by Gigi Hendrickson MD at OR [facility] N/A: Abdomen CR BARD : DAVOL [id number] 05/21/2024 [id number] / / [id number] Lens 22.5 Sn60wf - [id number] - [id number] Implanted:Qty : 1 on 09/15/2020 by Renaldo Cook, Cece Acosta MD at OR [facility] Right: Eye IVA : SURGICAL [id number] 05/13/2025 SN60 WF.225 / [id number] / [id number] Lens 21.5 Sn60wf - [id number] - [id number] Implanted:Qty : 1 on 12/19/2023 by Ramsey Burnett DO at OR [facility] Left: Eye IVA : SURGICAL 12/03/2024 SN60WF.2 15 / [id number] / documented as of this encounter [...] patient or by statute hierarchy) Care Teams Analytical Scientist Relationship Specialty Start Date End Date Gregory Rausch MD [address] [place] [address] PCP - General Family Medicine 02/12/20 documented as of this encounter
--- OUTSIDE RECORDS SUMMARY | 2024-06-05 14:50 | External Medical Summary | Summary of Care ---
Author Name Unknown Organization [facility] Address [address] [place] [address] Phone [phone] Care Team Providers Care Health Equipment Servicer Name Role Phone Gregory Rausch MD Primary Care Provider [phone] Reason for Visit * Reason Onset Date Comments [facility]: Maintenance 02/20/2024 Encounter Details Date Type Department Care Team (Late st Contact Info) Description 02/20/2024 12:15 PM EDT Scheduled Telephone [facility], [facility] [address] [place] [address] Coordinator, [facility] [address] [place] [address] Allergies Active Allergy Reactions Criticality Noted Date Comments Adhesive Tape 07/02/2017 Can tolerate band-aids Glycerin Other (Please comment) 03/12/2008 Topical agents with glycein-burning & itching Lactose 12/09/2014 Dairy - gas Lisinopril Cough 01/21/2010 Monosodium Glutamate Edema Other 03/12/2008 Hands and feet Penicillins Rash 11/14/2007 documented as of this encounter (statuses as of 02/20/2024) Medications Medication Sig Dispensed Refills Start Date [...] Capsules by mouth in the morning. Active ScriptRockTouch Verio In Vitro Strip (Glucose Blood) Use [...] use of insulin ([facility]) Inject 30 Units under the skin in [...] MEDICATIONS 90 Tablet 2 01/10/2024 Active Nystatin 419822 UNIT/GM External Powder (Nystop)Indications: Candidal intertrigo Apply [...] bedtime. 60 Capsule 02/07/2024 Active Dexcom G6 Test Boring Crew Chief DeviceIndications:Ty pe 2 diabetes mellitus with stage [...] as of this encounter (statuses as of 02/20/2024) Active Problems Problem Noted Date Diagnosed Date [...] eye 09/28/2020 Coronary artery disease invo lving [place] coronary artery of [place] heart without angina pectoris 12/16/2019 Last Assessment [...] as of this encounter (statuses as of 02/20/2024) Resolved Problems Problem Noted Date Diagnosed Date [...] 12/21/2016 Diabetes mellitus 01/05/2014 12/21/2016 LEYVA RESEARCH OTHER*[id number] 01/05/2014 12/21/2016 Axillary pain 11/03/2013 12/21/2016 Obesity, [...] cath 09/201008/26/2011 12/21/2016 FOLLOWING SURGERY, UNSPECIFI ED ([facility] BSO 08/25/2011) 08/26/2011 12/21/2016 ADVANCE DIRECTIVE INFORMATION 04/17/2011 12/21/2016 Overview: Yes, Patient instructed to provide copy of advance directive for provider to review and to be scanned into Electronic Medical Record ADVANCE DIRECTIVE INFORMATION 03/01/2011 12/21/2016 Overview: Yes, Patient instructed to provide copy of advance directive for provider to review and to be scanned into Electronic Medical Record [facility] V710 Clinical Trial*[id number] 12/22/2010 04/14/2011 S/P aortic valve replacement 12/01/2010 08/26/2011 S/P AORTIC VALVE REPLACEMENT - #25 pericardial Mc valve 11/01/2010 06/28/2018 Overview: Aortic valve replacement with #25 pericardial Mc valve, model 2800TFX, serial number [id number] (Dr. Walker) [facility] V710 Clinical Trial*[id number] 10/18/2010 11/21/2010 Type 2 diabetes mellitus wit [...] as of this encounter (statuses as of 02/20/2024) Immunizations Name Administration Dates Next Due COVID-19 mRNA, LNP-s, No Pre serve, 2-Dose Series (Moderna) 10/25/2021,02/16/2021,01/18/2021 HEP A - Hepatitis A (Adult > 18 yrs) 06/07/2018, 12/05/2017 Hepatitis B, 20+ yrs 06/07/2018,01/08/20 18,12/05/2017,06/15,10/27/2013,09/12/2013 Pneumococcal Conjugate Vacci ne, 20-valent ([id number]) 06/22/2023 Pneumococcal Polysaccharide PPV23 (Pneumovax) 01/02/2008 Seasonal [...] encounter Miscellaneous Notes * Telephone Encounter - Shilpa Tadeo RN - 02/20/2024 12:41 PM EDT [facility] Telephonic Nurse Follow-Up Call [facility] Subprogram: Focused Care Management (3-9 months) Follow Up Call Type: Routine follow up call / Status Check Acute issue requiring follow-up call: Other: URI/cough Objective: 02/13/2024 10:48 AM 02/04/2024 10:10 AM 01/22/2024 11:29 AM 01/18/2024 12:01 PM 01/08/2024 11:24 AM VITALS ACROSS ENCOUNTERS BP 132/70 134/68 160/80 116/76 152/74 Pulse 108 72 81 90 96 Weight 68.1 kg 70.7 kg 67.7 kg 70.6 kg BMI 30.32 kg/m2 31.45 kg/m2 30.12 kg/m2 31.43 kg/m2 Remote Patient Monitoring: [facility] Scale: 154.4 lbs fully dressed after breakfast Oxygen Needs: NO supplemental oxygen needs identified DME Needs: NO DME needs identified Medications: New medication(s) added: doxycycline 100 mg po bid x 10 days Subjective: Condition Status: Improvement in symptoms but not at baseline Current Concerns: Spoke with Jovita, reports feeling good today, symptoms are slowly resolving and is feeling muchbetter denies any fever/chills, denies any headache, no sore throat, has cough with clear congestion, has nasal congestion, no light headedness no dizziness, no abdominal bloating, no edema to BLE's . Will GAH with any change In condition Disposition: Routed to [facility] and/or [facility] at Home Care Team for further advice Future Visits Scheduled: Future Appointments-next 60 days Date/Time Provider Specialty Dept Phone 02/21/2024 9:00 AM Pharmacist1, [facility] [phone] 03/04/2024 11:00 AM Angelica Navas [facility] Credit Clerk Family Medicine [phone] 03/06/2024 7:45 AM Ramsey Burnett DO Ophthalmology [phone] 03/25/2024 10:00 AM Jaycee Sorto RN [facility] [phone] 06/03/2024 9:00 AM Janice Atwood MD Psychiatry [phone] 07/17/2024 9:30 AM (Arrive by 9:15 AM) Roberto Carlos Muniz DO Cardiology [phone] 08/12/2024 9:20 AM (Arrive by 9:05 AM) Gregory Rausch MD Family Medicine [phone] 11/27/2024 9:40 AM (Arrive by 9:25 AM) Fidelina Baumann MD Nephrology [phone] Shilpa Tadeo RN documented in this encounter Plan of Treatment Upcoming Encounters Date Type Department Care Team (Late st Contact Info) Description 02/21/2024 9:00 AM EDT Office Visit Pharmacy, [facility] [address] [facility] [place] [address] Pharmacist1, [facility] [address] [facility] [place] [address] 03/04/2024 11:00 AM EDT Home Visit Care Coordination and Integration [address] [place] [address] Angelica Navas, Community Health Credit Clerk [address] [place] [address] 03/06/2024 7:45 AM EDT Office Visit Ophthalmology, [facility] [address] [place] [address] Ramsey Burnett, DO [address] [facility] [place] [address] 03/25/2024 10:00 AM EDT Home Visit [facility], [facility] [address] [facility] [place] [address] Jaycee Sorto RN 132 [place] [address] 06/03/2024 9:00 AM EDT Telemedicine Psychiatry [facility] [address] [place] [id number] Janice Atwood MD [address] [place] [address] 07/17/2024 9:30 AM EDT Office Visit Cardiology, [facility] [address] [facility] [place] [address] Roberto Carlos Muniz, DO [address] [place] [address] 08/12/2024 9:20 AM EST Office Visit Family Practice [facility] [address] [place] [address] Gregory Rausch MD [address] [place] [address] 11/27/2024 9:40 AM EST Office Visit Nephrology, [facility] [address] [facility] [place] [address] Fidelina Baumann MD [address] [facility] [place] [address] Scheduled Procedures Name Priority Associated Diagnoses Date/Ti [...] 10) 12/26/2023 12/25/2023 CKD PHOS USE SMARTSET 12759 06/18/202405/26, 06/16/2023, 06/15/2023, Additional history exists GFR 07/09/2024 01/08/2024, 09/25, 08/02/2023, Additional history exists HbA1c 08/01/2024 01/30/2024, 08/25, 07/31/2023, Additional history exists Diabetic Eye Exam 09/13/2024 09/13/2023, , 09/13/2023, Additional history exists B-12 09/18/2024 09/18/2023, 08/24, 2020, Additional history exists Albumin/Creatinine Ratio 01/07/2025 024, 03/09/2023, 12/22/2022, Additional history exists CKD HGB USE SMARTSET 43283 01/07/202501/07, 01/08/2024, 10/15/2023, Additional history exists TSH [...] encounter Medical Devices Implanted Type Area Assistant City Attorney Device Identifier Shelf Expiration Date Model / Serial / Lot Cath Roselia Single Lumen - [id number] Implanted:Qty : 1 on 03/12/2008 at OR [facility] Left: Chest [facility] *DO NOT USE* 07/25/2012 21-4053-24 / / [id number] Sut Steel 6 M654g - [id number] Implanted:Qty : 1 on 11/01/2010 at OR [facility] N/A: Chest DO NOT USE M654G / / Sut Steel 6 M654g - [id number] Implanted:Qty : 1 on 11/01/2010 at OR [facility] N/A: Chest DO NOT USE M654G / / Valve Tarsha Aortic [id number] - [id number] Implanted:Qty : 1 on 11/01/2010 at OR [facility] N/A: Heart [employer] DANIEL 05/20/2012 2800TFX-25 / / [id number] Mesh Soft [id number] - [id number] Implanted:Qty : 1 on 10/10/2019 by Gigi Hendrickson MD at [place] [facility] N/A: Abdomen CR BARD : DAVOL [id number] 05/21/2024 [id number] / / [id number] Lens 22.5 Sn60wf - [id number] - [id number] Implanted:Qty : 1 on 09/15/2020 by Renaldo Cook, Cece Acosta MD at OR [facility] Right: Eye IVA : SURGICAL [id number] 05/13/2025 SN60 WF.225 / [id number] / [id number] Lens 21.5 Sn60wf - [id number] - [id number] Implanted:Qty : 1 on 12/19/2023 by Ramsey Burnett DO at OR [facility] Left: Eye IVA : SURGICAL 12/03/2024 SN60WF.2 15 / [id number] / documented as of this encounter [...] Healthcare Agent Relationshi p Communication [facility]igi [facility] Child Health Care Repr esentative (appointed verbally by patient or by statute hierarchy) Care Teams Health Equipment Servicer Relationship Specialty Start Date End Date Gregory Rausch MD [address] [facility] [place] [address] PCP - General Family Medicine 02/12/20 documented as of this encounter
--- OUTSIDE RECORDS SUMMARY | 2024-06-05 14:50 | External Medical Summary | Summary of Care ---
Author Name Unknown Organization [facility] Address [address] [place] [address] Phone [phone] Care Team Providers Care Foreign Language Interpreter Name Role Phone Gregory Rausch MD Primary Care Provider [phone] Encounter Details Date Type Department Care Team (Late st Contact Info) Description 02/18/2024 Population Health External Data Unspecified Department Allergies Active Allergy Reactions Criticality Noted Date Comments Adhesive Tape 07/02/2017 Can tolerate band-aids Glycerin Other (Please comment) 03/12/2008 Topical agents with glycein-burning & itching Lactose 12/09/2014 Dairy - gas Lisinopril Cough 01/21/2010 Monosodium Glutamate Edema Other 03/12/2008 Hands and feet Penicillins Rash 11/14/2007 documented as of this encounter (statuses as of 02/18/2024) Medications Medication Sig Dispensed Refills Start Date [...] use of insulin ([facility]) Inject 30 Units under the skin in [...] MEDICATIONS 90 Tablet 2 01/10/2024 Active Nystatin 625182 UNIT/GM External Powder (Nystop)Indications: Candidal intertrigo Apply [...] :Heart failure, systolic, due to idiopathic cardiomyopathy ([facility]),S/P aortic valve replacement,HTN, goal below 140/80,Dyslipidemia, goal [...] bedtime. 60 Capsule 02/07/2024 Active Dexcom G6 Rehabilitation Consultant DeviceIndications:Ty pe 2 diabetes mellitus with stage [...] 10 days. Until gone.. 20 Capsule 02/13/2024 4 Active documented as of this encounter (statuses as of 02/18/2024) Active Problems Problem Noted Date Diagnosed Date [...] eye 09/28/2020 Coronary artery disease invo lving [place] coronary artery of [place] heart without angina pectoris 12/16/2019 Last Assessment [...] as of this encounter (statuses as of 02/18/2024) Resolved Problems Problem Noted Date Diagnosed Date [...] 12/21/2016 Diabetes mellitus 01/05/2014 12/21/2016 LEYVA RESEARCH OTHER*[id number] 01/05/2014 12/21/2016 Axillary pain 11/03/2013 12/21/2016 Obesity, [...] cath 09/201008/26/2011 12/21/2016 FOLLOWING SURGERY, UNSPECIFI ED ([facility] BSO 08/25/2011) 08/26/2011 12/21/2016 ADVANCE DIRECTIVE INFORMATION 04/17/2011 12/21/2016 Overview: Yes, Patient instructed to provide copy of advance directive for provider to review and to be scanned into Electronic Medical Record ADVANCE DIRECTIVE INFORMATION 03/01/2011 12/21/2016 Overview: Yes, Patient instructed to provide copy of advance directive for provider to review and to be scanned into Electronic Medical Record [facility] V710 Clinical Trial*[id number] 12/22/2010 04/14/2011 S/P aortic valve replacement 12/01/2010 08/26/2011 S/P AORTIC VALVE REPLACEMENT - #25 pericardial Mc valve 11/01/2010 06/28/2018 Overview: Aortic valve replacement with #25 pericardial Mc valve, model 2800TFX, serial number [id number] (Dr. Walker) [facility] V710 Clinical Trial*[id number] 10/18/2010 11/21/2010 Type 2 diabetes mellitus wit [...] as of this encounter (statuses as of 02/18/2024) Immunizations Name Administration Dates Next Due COVID-19 mRNA, LNP-s, No Pre serve, 2-Dose Series (Moderna) 10/25/2021,02/16/2021,01/18/2021 HEP A - Hepatitis A (Adult > 18 yrs) 06/07/2018, 12/05/2017 Hepatitis B, 20+ yrs 06/07/2018,01/08/20 18,12/05/2017,06/15,10/27/2013,09/12/2013 Pneumococcal Conjugate Vacci ne, 20-valent ([id number]) 06/22/2023 Pneumococcal Polysaccharide PPV23 (Pneumovax) 01/02/2008 Seasonal [...] Description 02/19/2024 12:45 PM EDT Scheduled Telephone [facility] [address] [place] [address] Coordinator, [facility] [address] [place] [address] 02/21/2024 9:00 AM EDT Office Visit Pharmacy, [facility] [address] [place] [address] Pharmacist1, [facility] [address] [place] [address] 03/04/2024 11:00 AM EDT Home Visit Care Coordination and Integration [address] [place] [address] Angelica Navas, Community Health Client Director [address] [facility] [place] [address] 03/06/2024 7:45 AM EDT Office Visit Ophthalmology, [facility] [address] [facility] [place] [address] Ramsey Burnett, DO [address] [place] [address] 03/25/2024 10:00 AM EDT Home Visit [facility], [facility] [address] [facility] [place] [address] Jaycee Sorto RN 132 [facility] [place] [address] 06/03/2024 9:00 AM EDT Telemedicine Psychiatry [facility] 9 [facility] [address] Janice Atwood MD [address], [place] [id number] 07/17/2024 9:30 AM EDT Office Visit Cardiology, [facility] [address] [facility] [place] [address] Roberto Carlos Muniz, DO 132 [facility] [place] [address] 08/12/2024 9:20 AM EST Office Visit Family Practice [facility] [address] [facility] [address] Gregory Rausch MD 132 [place] [address] 11/27/2024 9:40 AM EST Office Visit Nephrology, [facility] [address] [place] [address] Fidelina Baumann MD [address] [place] [address] Scheduled Procedures Name Priority Associated Diagnoses Date/Ti [...] 10) 12/26/2023 12/25/2023 CKD PHOS USE SMARTSET 73005 06/18/202405/26, 06/16/2023, 06/15/2023, Additional history exists GFR 07/09/2024 01/08/2024, 09/25, 08/02/2023, Additional history exists HbA1c 08/01/2024 01/30/2024, 08/25, 07/31/2023, Additional history exists Diabetic Eye Exam 09/13/2024 09/13/2023, , 09/13/2023, Additional history exists B-12 09/18/2024 09/18/2023, 08/24, 2020, Additional history exists Albumin/Creatinine Ratio 01/07/2025 024, 03/09/2023, 12/22/2022, Additional history exists CKD HGB USE SMARTSET 79095 01/07/202501/07, 01/08/2024, 10/15/2023, Additional history exists TSH [...] this encounter Medical Devices Implanted Type Area Student Ministries Director Device Identifier Shelf Expiration Date Model / Serial / Lot Cath Roselia Single Lumen - [id number] Implanted:Qty : 1 on 03/12/2008 at OR [facility] Left: Chest [facility] *DO NOT USE* 07/25/2012 21-4053-24 / / [id number] Sut Steel 6 M654g - [id number] Implanted:Qty : 1 on 11/01/2010 at OR [facility] N/A: Chest DO NOT USE M654G / / Sut Steel 6 M654g - [id number] Implanted:Qty : 1 on 11/01/2010 at OR [facility] N/A: Chest DO NOT USE M654G / / Valve Tarsha Aortic [id number] - [id number] Implanted:Qty : 1 on 11/01/2010 at OR [facility] N/A: Heart [employer] 05/20/2012 2800TFX-25 / / [id number] Mesh Soft [id number] - [id number] Implanted:Qty : 1 on 10/10/2019 by Gigi Hendrickson MD at [place] [facility] N/A: Abdomen CR BARD : DAVOL [id number] 05/21/2024 [id number] / / [id number] Lens 22.5 Sn60wf - [id number] - [id number] Implanted:Qty : 1 on 09/15/2020 by Cece Roland MD at OR [facility] Right: Eye IVA : SURGICAL [id number] 05/13/2025 SN60 WF.225 / [id number] / [id number] Lens 21.5 Sn60wf - [id number] - [id number] Implanted:Qty : 1 on 12/19/2023 by Ramsey Burnett DO at OR [facility] Left: Eye IVA : SURGICAL 12/03/2024 SN60WF.2 15 / [id number] / documented as of this encounter [...] Relationship Healthcare Agent Relationshi p Communication Gigi [facility] Adult Child Health Care Repr esentative (appointed verbally by patient or by statute hierarchy) Care Teams Foreign Language Interpreter Relationship Specialty Start Date End Date Gregory Rausch MD [address] [place] [address] PCP - General Family Medicine 02/12/20 documented as of this encounter
--- OUTSIDE RECORDS SUMMARY | 2024-06-05 14:50 | External Medical Summary | Summary of Care ---
Author Name Unknown Organization [facility] Address [address] [place] [address] Phone [phone] Care Team Providers Care Laborer Plumbing Name Role Phone Gregory Rausch MD Primary Care Provider [phone] Reason for Visit * Reason Onset Date Comments [facility]: Maintenance 02/19/2024 Encounter Details Date Type Department Care Team (Late st Contact Info) Description 02/19/2024 12:45 PM EDT Scheduled Telephone [facility], [facility] [address] [place] [address] Coordinator, [facility] [address] [place] [address] Allergies Active Allergy Reactions Criticality Noted Date Comments Adhesive Tape 07/02/2017 Can tolerate band-aids Glycerin Other (Please comment) 03/12/2008 Topical agents with glycein-burning & itching Lactose 12/09/2014 Dairy - gas Lisinopril Cough 01/21/2010 Monosodium Glutamate Edema Other 03/12/2008 Hands and feet Penicillins Rash 11/14/2007 documented as of this encounter (statuses as of 02/19/2024) Medications Medication Sig Dispensed Refills Start Date [...] Capsules by mouth in the morning. Active Apply Financials LimitedTouch Verio In Vitro Strip (Glucose Blood) [...] MEDICATIONS 90 Tablet 2 01/10/2024 Active Nystatin 583497 UNIT/GM External Powder (Nystop)Indications: Candidal intertrigo Apply [...] bedtime. 60 Capsule 02/07/2024 Active Dexcom G6 Director Of Marketing And Promotions DeviceIndications:Ty pe 2 diabetes mellitus with stage [...] as of this encounter (statuses as of 02/19/2024) Active Problems Problem Noted Date Diagnosed Date [...] eye 09/28/2020 Coronary artery disease invo lving [place] coronary artery of [place] heart without angina pectoris 12/16/2019 Last Assessment [...] as of this encounter (statuses as of 02/19/2024) Resolved Problems Problem Noted Date Diagnosed Date [...] 12/21/2016 Diabetes mellitus 01/05/2014 12/21/2016 LEYVA RESEARCH OTHER*[id number] 01/05/2014 12/21/2016 Axillary pain 11/03/2013 12/21/2016 Obesity, [...] cath 09/201008/26/2011 12/21/2016 FOLLOWING SURGERY, UNSPECIFI ED ([facility] BSO 08/25/2011) 08/26/2011 12/21/2016 ADVANCE DIRECTIVE INFORMATION 04/17/2011 12/21/2016 Overview: Yes, Patient instructed to provide copy of advance directive for provider to review and to be scanned into Electronic Medical Record ADVANCE DIRECTIVE INFORMATION 03/01/2011 12/21/2016 Overview: Yes, Patient instructed to provide copy of advance directive for provider to review and to be scanned into Electronic Medical Record [facility] V710 Clinical Trial*[id number] 12/22/2010 04/14/2011 S/P aortic valve replacement 12/01/2010 08/26/2011 S/P AORTIC VALVE REPLACEMENT - #25 pericardial Mc valve 11/01/2010 06/28/2018 Overview: Aortic valve replacement with #25 pericardial Mc valve, model 2800TFX, serial number [id number] (Dr. Walker) [facility] V710 Clinical Trial*[id number] 10/18/2010 11/21/2010 Type 2 diabetes mellitus wit [...] as of this encounter (statuses as of 02/19/2024) Immunizations Name Administration Dates Next Due COVID-19 mRNA, LNP-s, No Pre serve, 2-Dose Series (Moderna) 10/25/2021,02/16/2021,01/18/2021 HEP A - Hepatitis A (Adult > 18 yrs) 06/07/2018, 12/05/2017 Hepatitis B, 20+ yrs 06/07/2018,01/08/20 18,12/05/2017,06/15,10/27/2013,09/12/2013 Pneumococcal Conjugate Vacci ne, 20-valent (Ahonyto57) 06/22/2023 Pneumococcal Polysaccharide PPV23 (Pneumovax) 01/02/2008 Seasonal [...] Miscellaneous Notes * Telephone Encounter - Debo Maurer RN - 02/19/2024 2:43 PM EDT Images from the original note were not included. [facility] Telephonic Nurse Follow-Up Call [facility] Subprogram: Focused Care Management (3-9 months) Follow Up Call Type: Routine follow up call / Status Check Acute issue requiring follow-up call: Other: URI symptoms /persistent cough Objective: 02/13/2024 10:48 AM 02/04/2024 10:10 AM 01/22/2024 11:29 AM 01/18/2024 12:01 PM 01/08/2024 11:24 AM VITALS ACROSS ENCOUNTERS BP 132/70 134/68 160/80 116/76 152/74 Pulse 108 72 81 90 96 Weight 68.1 kg 70.7 kg 67.7 kg 70.6 kg BMI 30.32 kg/m2 31.45 kg/m2 30.12 kg/m2 31.43 kg/m2 Remote Patient Monitoring: [facility] Scale: see below Oxygen Needs: NO supplemental oxygen needs identified DME Needs: NO DME needs identified Medications: New medication(s) added: doxycycline 100 mg po bid x 10 days HX: TAVR, CAD, DM, LEYVA, C diff, colon ca, breast ca, b mastectomy, Subjective: Condition Status: No change in symptoms Current Concerns: Pt continues to have c/o URI and cough. Coughing up clear phlegm. Reports runny nose with clear nasal drainage. Pt denies SOB, fever, pain, nausea or vomiting, denies sinus pain or pressure. Eating and drinking well. Denies chest tightness, chest congestion or wheezing. Reports occasional headache. 2-3 episodes of loose stools per day. Taking mucinex, coricidin hbp and vicks vapor rub to treat symptoms. Disposition: Routed to [facility] and/or [facility] Care Team for further advice Future Visits Scheduled: Future Appointments-next 60 days Date/Time Provider Specialty Dept Phone 02/21/2024 9:00 AM Pharmacist1, [facility] [phone] 03/04/2024 11:00 AM Angelica Navas, [facility] Special Education Aide Family Medicine [phone] 03/06/2024 7:45 AM Ramsey Burnett DO Ophthalmology [phone] 03/25/2024 10:00 AM Jaycee Sorto RN [facility] [phone] 06/03/2024 9:00 AM Janice Atwood MD Psychiatry [phone] 07/17/2024 9:30 AM (Arrive by 9:15 AM) Roberto Carlos Muniz DO Cardiology [phone] 08/12/2024 9:20 AM (Arrive by 9:05 AM) Gregory Rausch MD Family Medicine [phone] 11/27/2024 9:40 AM (Arrive by 9:25 AM) Fidelina Baumann MD Nephrology [phone] Debo T Lumbee, RN documented in this encounter Plan of Treatment Upcoming Encounters Date Type Department Care Team (Late st Contact Info) Description 02/21/2024 9:00 AM EDT Office Visit Pharmacy, [facility] [address] [facility] [place] [address] Pharmacist1, [facility] [address] [facility] [place] [address] 03/04/2024 11:00 AM EDT Home Visit Care Coordination and Integration [address] [place] [address] Angelica Navas, [facility] Special Education Aide [address] [place] [address] 03/06/2024 7:45 AM EDT Office Visit Ophthalmology, [facility] [address] [place] [address] Ramsey Burnett, DO [address] [place] [address] 03/25/2024 10:00 AM EDT Home Visit [facility], [facility] [address] [place] [address] Jaycee Sorto RN [address] [place] [address] 06/03/2024 9:00 AM EDT Telemedicine Psychiatry [address] [facility] [address] [place] [phone] Janice Atwood MD [address] [place] [address] 07/17/2024 9:30 AM EDT Office Visit Cardiology, [facility] [address] [place] [address] Roberto Carlos Muniz, DO [address] [place] [address] 08/12/2024 9:20 AM EST Office Visit Family [facility] [address] [place] [address] Gregory Rausch MD [address] [place] [address] 11/27/2024 9:40 AM EST Office Visit Nephrology, [facility] [address] [place] [address] Fidelina Baumann MD [address] [place] [address] Scheduled Procedures Name Priority Associated Diagnoses Date/Ti [...] 10) 12/26/2023 12/25/2023 CKD PHOS USE SMARTSET 35154 06/18/202405/26, 06/16/2023, 06/15/2023, Additional history exists GFR 07/09/2024 01/08/2024, 09/25, 08/02/2023, Additional history exists HbA1c 08/01/2024 01/30/2024, 08/25, 07/31/2023, Additional history exists Diabetic Eye Exam 09/13/2024 09/13/2023, , 09/13/2023, Additional history exists B-12 09/18/2024 09/18/2023, 08/24, 2020, Additional history exists Albumin/Creatinine Ratio 01/07/2025 024, 03/09/2023, 12/22/2022, Additional history exists CKD HGB USE SMARTSET 45331 01/07/202501/07, 01/08/2024, 10/15/2023, Additional history exists TSH [...] this encounter Medical Devices Implanted Type Area Wastewater Treatment Plant Instructor Device Identifier Shelf Expiration Date Model / Serial / Lot Cath Roselia Single Lumen - [id number] Implanted:Qty : 1 on 03/12/2008 at OR [facility] Left: Chest [employer] *DO NOT USE* 07/25/2012 21-4053-24 / / [id number] Sut [facility] 6 M654g - [id number] Implanted:Qty : 1 on 11/01/2010 at OR [facility] N/A: Chest DO NOT USE M654G / / Sut Steel 6 M654g - [id number] Implanted:Qty : 1 on 11/01/2010 at OR [facility] N/A: Chest DO NOT USE M654G / / Valve Tarsha Aortic [id number] - [id number] Implanted:Qty : 1 on 11/01/2010 at OR [facility] N/A: Heart [employer] DANIEL 05/20/2012 2800TFX-25 / / [id number] Mesh Soft [id number] - [id number] Implanted:Qty : 1 on 10/10/2019 by Gigi Hendrickson MD at OR [facility] N/A: Abdomen CR BARD : DAVOL [id number] 05/21/2024 [id number] / / [id number] Lens 22.5 Sn60wf - [id number] - [id number] Implanted:Qty : 1 on 09/15/2020 by Renaldo Cook, Cece Acosta MD at OR [facility] Right: Eye IVA : SURGICAL [id number] 05/13/2025 SN60 WF.225 / [id number] / [id number] Lens 21.5 Sn60wf - [id number] - [id number] Implanted:Qty : 1 on 12/19/2023 by Ramsey Burnett DO at OR [facility] Left: Eye IVA : SURGICAL 12/03/2024 SN60WF.2 15 / [id number] [id number] / documented as of this encounter [...] patient or by statute hierarchy) Care Teams Laborer Plumbing Relationship Specialty Start Date End Date Gregory Rausch MD [address] [place] [address] PCP - General Family Medicine 02/12/20 documented as of this encounter
--- OUTSIDE RECORDS SUMMARY | 2024-06-05 14:50 | External Medical Summary | Summary of Care ---
Author Name Unknown Organization [facility] Address [address] [place] [address] Phone [phone] Care Team Providers Care Geologist Name Role Phone Gregory Rausch MD Primary Care Provider [phone] Reason for Visit * Reason Comments Diabetes Follow-Up Dosage Adjustment In Person (Anticoag Cl inic) Encounter Details Date Type Department Care Team (Late st Contact Info) Description 02/21/2024 9:00 AM EDT Office Visit Pharmacy, [facility] [address] [place] [address] Pharmacist1, [facility] [address] [place] [address] Type 2 diabetes mellitus with hemoglobin A1c goal of less than 8.0% ([facility])* Allergies Active Allergy Reactions Criticality Noted Date Comments Adhesive Tape 07/02/2017 Can tolerate band-aids Glycerin Other (Please comment) 03/12/2008 Topical agents with glycein-burning & itching Lactose 12/09/2014 Dairy - gas Lisinopril Cough 01/21/2010 Monosodium Glutamate Edema Other 03/12/2008 Hands and feet Penicillins Rash 11/14/2007 documented as of this encounter (statuses as of 02/21/2024) Medications Medication Sig Dispensed Refills Start Date [...] Capsules by mouth in the morning. Active Genius BlendsTouch Verio In Vitro Strip (Glucose Blood) Use [...] MEDICATIONS 90 Tablet 2 01/10/2024 Active Nystatin 122285 UNIT/GM External Powder (Nystop)Indications :Candidal intertrigo Apply [...] Capsule before bedtime. 60 Capsule 02/07/2024 Active Doxycycline Hyclate 100 MG Oral Capsule Take 1 Capsule by mouth in the morning and 1 Capsule before bedtime. Do all this for 10 days. Until gone.. 20 Capsule 02/13/2024 02/23/20 24 Active Dexcom G6 Chief Deputy Coroner DeviceIndications:T ype 2 diabetes mellitus with stage 3a chronic kidney disease, with long-term current use of insulin (HCC) Use as directed. 1 Each 02/08/2024 02/21/20 24 Discontinu ed(Medicat ion List Clean Up) Dexcom G6 TransmitterIndicati ons:Type 2 diabetes mellitus with stage 3a chronic kidney disease, with long-term current use of insulin (HCC) Use as directed. 1 Each 02/08/2024 02/21/20 24 Discontinu ed(Medicat ion List Clean Up) documented as of this encounter (statuses as of 02/21/2024) Active Problems Problem Noted Date Diagnosed Date [...] eye 09/28/2020 Coronary artery disease invo lving [place] coronary artery of [place] heart without angina pectoris 12/16/2019 Last Assessment [...] as of this encounter (statuses as of 02/21/2024) Resolved Problems Problem Noted Date Diagnosed Date [...] 12/21/2016 Diabetes mellitus 01/05/2014 12/21/2016 LEYVA RESEARCH OTHER*[id number] 01/05/2014 12/21/2016 Axillary pain 11/03/2013 12/21/2016 Obesity, [...] cath 09/201008/26/2011 12/21/2016 FOLLOWING SURGERY, UNSPECIFI ED ([facility] BSO 08/25/2011) 08/26/2011 12/21/2016 ADVANCE DIRECTIVE INFORMATION 04/17/2011 12/21/2016 Overview: Yes, Patient instructed to provide copy of advance directive for provider to review and to be scanned into Electronic Medical Record ADVANCE DIRECTIVE INFORMATION 03/01/2011 12/21/2016 Overview: Yes, Patient instructed to provide copy of advance directive for provider to review and to be scanned into Electronic Medical Record [employer] V710 Clinical Trial*[id number] 12/22/2010 04/14/2011 S/P aortic valve replacement 12/01/2010 08/26/2011 S/P AORTIC VALVE REPLACEMENT - #25 pericardial Mc valve 11/01/2010 06/28/2018 Overview: Aortic valve replacement with #25 pericardial Mc valve, model 2800TFX, serial number [id number] (Dr. Walker) [facility] V710 Clinical Trial*[id number] 10/18/2010 11/21/2010 Type 2 diabetes mellitus wit [...] as of this encounter (statuses as of 02/21/2024) Immunizations Name Administration Dates Next Due COVID-19 mRNA, LNP-s, No Pre serve, 2-Dose Series (Moderna) 10/25/2021,02/16/2021,01/18/2021 HEP A - Hepatitis A (Adult > 18 yrs) 06/07/2018, 12/05/2017 Hepatitis B, 20+ yrs 06/07/2018,01/08/20 18,12/05/2017,06/15,10/27/2013,09/12/2013 Pneumococcal Conjugate Vacci ne, 20-valent (Ioileip61) 06/22/2023 Pneumococcal Polysaccharide PPV23 (Pneumovax) 01/02/2008 Seasonal [...] this encounter Progress Notes * Neeraj Matthew, [facility] - 02/21/2024 9:00 AM EDT Medication Therapy Disease Management Clinic - Diabetes Management Progress Note Jovita Rose, identified by name and date of , is a 63 year old female being seen for diabetes management/education. Patient presents for Omnipod 5 start. She did not have the Omnipod 5 trust accounts supervisor nor a Dexcom G6 transmitter so we were unable to start anything today. She is to look for her Dexcom G6 trust accounts supervisor and Omnipod 5 trust accounts supervisor at home and if found she is to call the clinic to arrange start of G6 and/or Omnipod 5. Steph is shipping her Dexcom supplies today. I am waiting for a reply from Omnipod RepAsad tosee about getting a replacement trust accounts supervisor. I also asked about Dexcom G7 compatible pods since the patient has G7 cgms and trust accounts supervisor. Once all the supplies needed are available I will reschedule her start. Another issue is the patient is unable to place CGM, fill pods and start pods. I will ask case management for any help with arranging someone to go to the home to help the patient do this. I believe she is capable of doing what is needed but having assistance the first few times will be beneficial. FOLLOW UP: Phone call in 1 week to see if supplies available Neeraj Romero RPh, CDE Clinical Pharmacist - [facility]ascar [facility] Medication Therapy Management Clinic 02/21/2024, 10:11 AM documented in this encounter Plan of Treatment Upcoming Encounters Date Type Department Care Team (Late st Contact Info) Description 02/27/2024 6:00 PM EDT Pharmacy Pharmacy, [facility] [address] [facility] [place] [address] Pharmacist1, [facility] [address] [facility] [place] [address] 03/04/2024 11:00 AM EDT Home Visit Care Coordination and Integration [address] [place] [address] Angelica Navas, Community Health Programming Instructor [address] [place] [address] 03/06/2024 7:45 AM EDT Office Visit Ophthalmology, [facility] [address] [facility] [place] [address] Ramsey Burnett, DO [address] [place] [address] 03/25/2024 10:00 AM EDT Home Visit [facility] [place], [facility] [address] [facility] [place] [address] Jaycee Sorto, RN [address] [facility] [place] [address] 06/03/2024 9:00 AM EDT Telemedicine Psychiatry [facility] [address] [place] [phone] Janice Atwood MD [address] [facility] [place] [address] 07/17/2024 9:30 AM EDT Office Visit Cardiology, [facility] [address] [facility] [place] [address] Roberto Carlos Muniz DO [address] [facility] [place] [address] 08/12/2024 9:20 AM EST Office Visit Family Practice [facility] [address] [facility] [place] [address] Gregory Rausch MD [address] [place] [address] 11/27/2024 9:40 AM EST Office Visit Nephrology, [facility] [address] [facility] [place] [address] Fidelina Baumann MD [address] [facility] [place] [address] Scheduled Procedures Name Priority Associated Diagnoses Date/Ti [...] 10) 12/26/2023 12/25/2023 CKD PHOS USE SMARTSET 41002 06/18/202405/26, 06/16/2023, 06/15/2023, Additional history exists GFR 07/09/2024 01/08/2024, 09/25, 08/02/2023, Additional history exists HbA1c 08/01/2024 01/30/2024, 08/25, 07/31/2023, Additional history exists Diabetic Eye Exam 09/13/2024 09/13/2023, , 09/13/2023, Additional history exists B-12 09/18/2024 09/18/2023, 08/24, 2020, Additional history exists Albumin/Creatinine Ratio 01/07/2025 024, 03/09/2023, 12/22/2022, Additional history exists CKD HGB USE SMARTSET 96373 01/07/202501/07, 01/08/2024, 10/15/2023, Additional history exists TSH [...] this encounter Medical Devices Implanted Type Area Oracle Programmer Device Identifier Shelf Expiration Date Model / Serial / Lot Cath Roselia Single Lumen - [id number] Implanted:Qty : 1 on 03/12/2008 at OR [facility] Left: Chest [facility] *DO NOT USE* 07/25/2012 21-4053-24 / / [id number] Sut Steel 6 M654g - [id number] Implanted:Qty : 1 on 11/01/2010 at OR [facility] N/A: Chest DO NOT USE M654G / / Sut Steel 6 M654g - [id number] Implanted:Qty : 1 on 11/01/2010 at OR [facility] N/A: Chest DO NOT USE M654G / / Valve Tarsha Aortic [id number] - [id number] Implanted:Qty : 1 on 11/01/2010 at OR [facility] N/A: Heart MC [employer]IF[employer]DEL[employer] DANIEL 05/20/2012 2800TFX-25 / / [id number] Mesh Soft [id number] - [id number] Implanted:Qty : 1 on 10/10/2019 by Gigi Hendrickson MD at OR [facility] N/A: Abdomen CR BARD : DAVOL [id number] 05/21/2024 [id number] / / [id number] Lens 22.5 Sn60wf - [id number] - [id number] Implanted:Qty : 1 on 09/15/2020 by Cece Roalnd MD at OR [facility] Right: Eye IVA : SURGICAL [id number] 05/13/2025 SN60 WF.225 / [id number] / [id number] Lens 21.5 Sn60wf - [id number] 022 - [id number] Implanted:Qty : 1 on 12/19/2023 by Ramsey Burnett, DO at OR [facility] Left: Eye IVA : SURGICAL 12/03/2024 SN60WF.2 [id number] [id number] / documented as of this encounter Visit Diagnoses Diagnosis Type 2 diabetes mellitus with hemoglobin A1c goal of less than 8.0% ([facility])- Primary documented in this encounter Additional Health Concerns [...] patient or by statute hierarchy) Care Teams Geologist Relationship Specialty Start Date End Date Gregory Rausch MD [address] [place] [address] PCP - General Family Medicine 5/21/20 documented as of this encounter
--- OUTSIDE RECORDS SUMMARY | 2024-06-05 14:50 | External Medical Summary | Summary of Care ---
Author Name Unknown Organization [facility] Address [address] [place] [address] Phone [phone] Care Team Providers Care Hand Mica Plate Layer Name Role Phone Gregory Rausch MD Primary Care Provider [phone] Reason for Visit * Reason Onset Date Comments [facility]: Maintenance 02/16/2024 Encounter Details Date Type Department Care Team (Late st Contact Info) Description 02/16/2024 8:30 AM EDT Scheduled Telephone [facility], [facility] [address] [place] [address] [facility], Nurse [facility] [address] [place] [address] Allergies Active Allergy Reactions Criticality Noted Date Comments Adhesive Tape 07/02/2017 Can tolerate band-aids Glycerin Other (Please comment) 03/12/2008 Topical agents with glycein-burning & itching Lactose 12/09/2014 Dairy - gas Lisinopril Cough 01/21/2010 Monosodium Glutamate Edema Other 03/12/2008 Hands and feet Penicillins Rash 11/14/2007 documented as of this encounter (statuses as of 02/16/2024) Medications Medication Sig Dispensed Refills Start Date [...] Capsules by mouth in the morning. Active Money On MobileTouch Verio In Vitro Strip (Glucose Blood) Use [...] MEDICATIONS 90 Tablet 2 01/10/2024 Active Nystatin 246888 UNIT/GM External Powder (Nystop)Indications: Candidal intertrigo Apply [...] bedtime. 60 Capsule 02/07/2024 Active Dexcom G6 Electrician Second DeviceIndications:Ty pe 2 diabetes mellitus with stage [...] as of this encounter (statuses as of 02/16/2024) Active Problems Problem Noted Date Diagnosed Date [...] eye 09/28/2020 Coronary artery disease invo lving [place] coronary artery of [place] heart without angina pectoris 12/16/2019 Last [...] as of this encounter (statuses as of 02/16/2024) Resolved Problems Problem Noted Date Diagnosed Date [...] 12/21/2016 Diabetes mellitus 01/05/2014 12/21/2016 LEYVA RESEARCH OTHER*[id number] 01/05/2014 12/21/2016 Axillary pain 11/03/2013 12/21/2016 Obesity, [...] cath 09/201008/26/2011 12/21/2016 FOLLOWING SURGERY, UNSPECIFI ED ([facility]SO 08/25/2011) 08/26/2011 12/21/2016 ADVANCE DIRECTIVE INFORMATION 04/17/2011 12/21/2016 Overview: Yes, Patient instructed to provide copy of advance directive for provider to review and to be scanned into Electronic Medical Record ADVANCE DIRECTIVE INFORMATION 03/01/2011 12/21/2016 Overview: Yes, Patient instructed to provide copy of advance directive for provider to review and to be scanned into Electronic Medical Record [facility] V710 Clinical Trial*[id number] 12/22/2010 04/14/2011 S/P aortic valve replacement 12/01/2010 08/26/2011 S/P AORTIC VALVE REPLACEMENT - #25 pericardial Mc valve 11/01/2010 06/28/2018 Overview: Aortic valve replacement with #25 pericardial Mc valve, model 2800TFX, serial number [id number] (Dr. Walker) [facility] V710 Clinical Trial*[id number] 10/18/2010 11/21/2010 Type 2 diabetes mellitus wit [...] as of this encounter (statuses as of 02/16/2024) Immunizations Name Administration Dates Next Due COVID-19 mRNA, LNP-s, No Pre serve, 2-Dose Series (Moderna) 10/25/2021,02/16/2021,01/18/2021 HEP A - Hepatitis A (Adult > 18 yrs) 06/07/2018, 12/05/2017 Hepatitis B, 20+ yrs 06/07/2018,01/08/20 18,12/05/2017,06/15,10/27/2013,09/12/2013 Pneumococcal Conjugate Vacci ne, 20-valent ([id number]) 06/22/2023 Pneumococcal Polysaccharide PPV23 (Pneumovax) 01/02/2008 Seasonal [...] Telephone Encounter - Shilpa Tadeo RN - 02/16/2024 11:38 AM EDT [facility] Telephonic Nurse Follow-Up Call [facility] Subprogram: Focused Care Management (3-9 months) Follow Up Call Type: Weekend Call Acute issue requiring follow-up call: Other: AMBER sx Objective: 02/13/2024 10:48 AM 02/04/2024 10:10 AM 01/22/2024 11:29 AM 01/18/2024 12:01 PM 01/08/2024 11:24 AM VITALS ACROSS ENCOUNTERS BP 132/70 134/68 160/80 116/76 152/74 Pulse 108 72 81 90 96 Weight 68.1 kg 70.7 kg 67.7 kg 70.6 kg BMI 30.32 kg/m2 31.45 kg/m2 30.12 kg/m2 31.43 kg/m2 Remote Patient Monitoring: [facility] BP cuff, not transmitting Oxygen Needs: NO CHANGE from baseline supplemental oxygen needs DME Needs: NO DME needs identified Medications: New medication(s) added: Doxycycline 100mg po bid x 10 days Subjective: Condition Status: Improvement in symptoms but not at baseline Current Concerns: Spoke with Jovita, reports feeling better today, breathing has improved since yesterday, still coughing, gets SOB only when she coughs, coughing up a very light yellow phlegm, improved from yesterday, SPO2 is 95% on room air, HR-81, denies any fever/chills, no N/V still has diarrhea, is getting more thicker, like pea soup, denies any pain but does have some discomfort prior to urinating but then goes away once she starts to urinate, will continue to monitor, encouraged to stay hydrated to flush bladder and use baby wipes to cleanse after each bout of diarrhea, area may be irritated from cleaning with toilet paper. Compliant with all medications and antibiotic, stay hydrated with clear liquids, tylenol prn for fever/body aches, mucinex as directed, saline nasal spray prn, Use Vicks as directed to bottom of feet for persistent coughing Disposition: Routed to [facility] and/or [facility] Care Team for further advice and Follow up call scheduled for tomorrow with SUPERVISOR GARMENT MANUFACTURING Fitness Studies Teacher Future Visits Scheduled: Future Appointments-next 60 days Date/Time Provider Specialty Dept Phone 02/21/2024 9:00 AM Pharmacist1, [facility] [phone] 03/04/2024 11:00 AM Angelica Navas[facility] Mining Manager Family Medicine [phone] 03/06/2024 7:45 AM Ramsey Burnett DO Ophthalmology [phone] 03/25/2024 10:00 AM Jaycee Sorto RN [facility] [phone] 06/03/2024 9:00 AM Janice Atwood MD Psychiatry [phone] 07/17/2024 9:30 AM (Arrive by 9:15 AM) Roberto Carlos Muniz DO Cardiology [phone] 08/12/2024 9:20 AM (Arrive by 9:05 AM) Gregory Rausch MD Family Medicine [phone] 11/27/2024 9:40 AM (Arrive by 9:25 AM) Fidelina Baumann MD Nephrology [phone] Shilpa Tadeo, PRABHA documented in this encounter Plan of Treatment Upcoming Encounters Date Type Department Care Team (Late st Contact Info) Description 02/17/2024 8:30 AM EDT Scheduled Telephone [facility], [facility] [address] [facility] [place] [address] [facility], Nurse [facility] [address] [facility] [place] [address] 02/21/2024 9:00 AM EDT Office Visit Pharmacy, [facility] [address] [place] [address] Pharmacist1, [facility] [address] [place] [address] 03/04/2024 11:00 AM EDT Home Visit Care Coordination and Integration [address] [place] [address] Angelica Navas, Community Health Mining Manager [address] [place] [address] 03/06/2024 7:45 AM EDT Office Visit Ophthalmology, [facility] [address] [facility] [place] [address] Ramsey Burnett DO [address] [facility] [place] [address] 03/25/2024 10:00 AM EDT Home Visit [facility], [facility] [address] [facility] [place] [address] Jaycee Sorto, PRABHA [address] [place] [address] 06/03/2024 9:00 AM EDT Telemedicine Psychiatry [facility] [address] [place] [phone] Janice Atwood MD [address] [facility] [place] [address] 07/17/2024 9:30 AM EDT Office Visit Cardiology, [facility] 132 [facility] [place] [address] Roberto Carlos Muniz DO [address] [facility] [place] [address] 08/12/2024 9:20 AM EST Office Visit Family Practice [facility] 132 [facility] [place] [address] Gregory Rausch MD [address] [place] [address] 11/27/2024 9:40 AM EST Office Visit Nephrology, [facility] [address] [facility] [place] [address] Fidelina Baumann MD [address] [facility] [place] [address] Scheduled Procedures Name Priority Associated Diagnoses Date/Ti [...] 10) 12/26/2023 12/25/2023 CKD PHOS USE SMARTSET 12471 06/18/202405/26, 06/16/2023, 06/15/2023, Additional history exists GFR 07/09/2024 01/08/2024, 09/25, 08/02/2023, Additional history exists HbA1c 08/01/2024 01/30/2024, 08/25, 07/31/2023, Additional history exists Diabetic Eye Exam 09/13/2024 09/13/2023, , 09/13/2023, Additional history exists B-12 09/18/2024 09/18/2023, 08/24, 2020, Additional history exists Albumin/Creatinine Ratio 01/07/2025 024, 03/09/2023, 12/22/2022, Additional history exists CKD HGB USE SMARTSET 14227 01/07/202501/07, 01/08/2024, 10/15/2023, Additional history exists TSH [...] this encounter Medical Devices Implanted Type Area Financial Adviser Device Identifier Shelf Expiration Date Model / Serial / Lot Cath Roselia Single Lumen - [id number] Implanted:Qty : 1 on 03/12/2008 at OR [facility] Left: Chest [facility] *DO NOT USE* 07/25/2012 21-4053-24 / / [id number] Sut Steel 6 M654g - [id number] Implanted:Qty : 1 on 11/01/2010 at OR [facility] N/A: Chest DO NOT USE M654G / / Sut Steel 6 M654g - [id number] Implanted:Qty : 1 on 11/01/2010 at OR [facility] N/A: Chest DO NOT USE M654G / / Valve Tarsha Aortic [id number] - [id number] Implanted:Qty : 1 on 11/01/2010 at OR [facility] N/A: Heart [employer] DANIEL 05/20/2012 2800TFX-25 / / [id number] Mesh Soft [id number] - [id number] Implanted:Qty : 1 on 10/10/2019 by Gigi Hendrickson MD at [facility] N/A: Abdomen CR BARD : DAVOL [id number] 05/21/2024 [id number] / / [id number] Lens 22.5 Sn60wf - [id number] - [id number] Implanted:Qty : 1 on 09/15/2020 by Renaldo Cook, Cece Acosta MD at OR [facility] Right: Eye IVA : SURGICAL [id number] 05/13/2025 SN60 WF.225 / [id number] / [id number] Lens 21.5 Sn60wf - [id number] - [id number] Implanted:Qty : 1 on 12/19/2023 by Ramsey Burnett DO at OR [facility] Left: Eye IVA : SURGICAL 12/03/2024 SN60WF.2 15 / [id number] / documented as of this encounter [...] Agents on File Name Relationship Healthcare Agent [facility] p Communication Gigi Rose Adult Child Health Care Repr esentative (appointed verbally by patient or by statute hierarchy) Care Teams Hand Mica Plate Layer Relationship Specialty Start Date End Date Gregory Rausch MD [address] [place] [address] PCP - General Family Medicine 02/12/20 documented as of this encounter
--- OUTSIDE RECORDS SUMMARY | 2024-06-05 14:51 | External Medical Summary | Summary of Care ---
Author Name Unknown Organization [facility] Address [address] [place] [address] Phone [phone] Care Team Providers Care Wire Brush Operator Name Role Phone Gregory Rausch MD Primary Care Provider [phone] Reason for Visit * Reason Onset Date Comments Information 02/14/2024 Encounter Details Date Type Department Care Team (Late st Contact Info) Description 02/14/2024 Telephone [facility], [place] [facility] [address] [place] [address] Services, Scheduling [address] [place] [address] Information Allergies Active Allergy Reactions Criticality Noted Date Comments Adhesive Tape 07/02/2017 Can tolerate band-aids Glycerin Other (Please comment) 03/12/2008 Topical agents with glycein-burning & itching Lactose 12/09/2014 Dairy - gas Lisinopril Cough 01/21/2010 Monosodium Glutamate Edema Other 03/12/2008 Hands and feet Penicillins Rash 11/14/2007 documented as of this encounter (statuses as of 02/14/2024) Medications Medication Sig Dispensed Refills Start Date End Date Status aspirin enteric coated 81 MG TBECIndications:Aort ic valve disorder Take 1 Tab by mouth daily. 90 Tab 11 09/30/2018 Active AZO Cranberry 250-30 MG Oral Tablet Take 1 Tablet by mouth in the morning. Active BD Glucose 5 GM Oral Tablet Chewable (Glucose)Indications :DM type 2, not at goal ([facility]) 3 every 15 minutes until glucose [...] fraction (HFpEF) ([facility]) Take 1 Tablet by mouth in the morning and 1 Tablet before bedtime. 180 Tablet 3 01/22/2024 Active Tresiba FlexTouch 200 UNIT/ML Subcutaneous Solution Pen-injector (Insulin Degludec)Indications :Type 2 diabetes mellitus with hemoglobin A1c goal of less than 7.0% ([facility]),Type 2 diabetes mellitus with stage 3a chronic kidney disease, with long-term current use of insulin ([facility]) Inject 30 Units under the skin in the morning. 6 mL 2 01/10/2024 Active BD Pen Needle Short U/F 31G X 8 MMIndications:Type 2 diabetes mellitus with hemoglobin A1c goal of less than 7.0% ([facility]),Type 2 diabetes mellitus with stage 3a chronic kidney disease, with long-term current use of insulin ([facility]) Use with insulin 4 times daily [...] MEDICATIONS 90 Tablet 2 01/10/2024 Active Nystatin 487090 UNIT/GM External Powder (Nystop)Indications: Candidal intertrigo Apply [...] idiopathic cardiomyopathy ([facility]),S/P aortic valve replacement,HTN, goal below 140/80,Dyslipidemia, [...] bedtime. 60 Capsule 02/07/2024 Active Dexcom G6 Pizza Cook DeviceIndications:Ty pe 2 diabetes mellitus with stage [...] as of this encounter (statuses as of 02/14/2024) Active Problems Problem Noted Date Diagnosed Date [...] eye 09/28/2020 Coronary artery disease invo lving ute coronary artery of ute heart without angina pectoris 12/16/2019 Last Assessment [...] as of this encounter (statuses as of 02/14/2024) Resolved Problems Problem Noted Date Diagnosed Date [...] 12/21/2016 Diabetes mellitus 01/05/2014 12/21/2016 LEYVA RESEARCH OTHER*[id number] 01/05/2014 12/21/2016 Axillary pain 11/03/2013 12/21/2016 Obesity, [...] cath 09/201008/26/2011 12/21/2016 FOLLOWING SURGERY, UNSPECIFI ED ([facility]SO 08/25/2011) 08/26/2011 12/21/2016 ADVANCE DIRECTIVE INFORMATION 04/17/2011 12/21/2016 Overview: Yes, Patient instructed to provide copy of advance directive for provider to review and to be scanned into Electronic Medical Record ADVANCE DIRECTIVE INFORMATION 03/01/2011 12/21/2016 Overview: Yes, Patient instructed to provide copy of advance directive for provider to review and to be scanned into Electronic Medical Record [facility] V710 Clinical Trial*[id number] 12/22/2010 04/14/2011 S/P aortic valve replacement 12/01/2010 08/26/2011 S/P AORTIC VALVE REPLACEMENT - #25 pericardial Mc valve 11/01/2010 06/28/2018 Overview: Aortic valve replacement with #25 pericardial Mc valve, model 2800TFX, serial number [id number] (Dr. Walker) [facility] V710 Clinical Trial*[id number] 10/18/2010 11/21/2010 Type 2 diabetes mellitus wit [...] as of this encounter (statuses as of 02/14/2024) Immunizations Name Administration Dates Next Due COVID-19 mRNA, LNP-s, No Pre serve, 2-Dose Series (Moderna) 10/25/2021,02/16/2021,01/18/2021 HEP A - Hepatitis A (Adult > 18 yrs) 06/07/2018, 12/05/2017 Hepatitis B, 20+ yrs 06/07/2018,01/08/20 18,12/05/2017,06/15,10/27/2013,09/12/2013 Pneumococcal Conjugate Vacci ne, 20-valent ([id number]) 06/22/2023 Pneumococcal Polysaccharide PPV23 (Pneumovax) 01/02/2008 Seasonal [...] encounter Miscellaneous Notes * Telephone Encounter - Roberto Carlos Fish MD - 02/14/2024 1:55 PM EDT Please notify pt she has parainfluenza and see how she is doing today * Telephone Encounter - Catherine Aldridge OSA - 02/14/2024 11:21 AM EDT Received TT from Rebekah asking to get a mobile xray on pt. Call to [facility] at [phone], faxedorder to [phone], order #[id number]. documented in this encounter Plan of Treatment Upcoming Encounters Date Type Department Care Team (Late st Contact Info) Description 02/15/2024 12:00 PM EDT Scheduled Telephone [facility], [facility] [address] [facility] [place] [address] Coordinator, Rashard Boles [address] [place] [address] 02/21/2024 9:00 AM EDT Office Visit Pharmacy, [facility] [address] [facility] [place] [address] Pharmacist1, [facility] 200 [facility] [place] [address] 03/04/2024 11:00 AM EDT Home Visit Care Coordination and Integration [address] [place] [address] Angelica Navas, Community Health Assembly Line Upholsterer [address] [place] [address] 03/06/2024 7:45 AM EDT Office Visit Ophthalmology, [facility] [address] [place] [address] Ramsey Burnett, DO [address] [place] [address] 03/25/2024 10:00 AM EDT Home Visit [facility], [facility] 132 [facility] [place] [address] Jaycee Sorto, RN [address] [place] [address] 06/03/2024 9:00 AM EDT Telemedicine Psychiatry [place] [address] [place] [address] Janice tAwood MD [address] [place] [address] 07/17/2024 9:30 AM EDT Office Visit Cardiology, [facility] [address] [place] [address] Roberto Carlos Muniz, [address] [place] [address] 08/12/2024 9:20 AM EST Office Visit Family Practice [facility] [address] [place] [address] Gregory Rausch MD [address] [place] [address] 11/27/2024 9:40 AM EST Office Visit Nephrology, [facility] [address] [place] [address] Fidelina Baumann MD [address] [place] [address] Scheduled Procedures Name Priority Associated Diagnoses Date/Ti [...] 10) 12/26/2023 12/25/2023 CKD PHOS USE SMARTSET 08576 06/18/202405/26, 06/16/2023, 06/15/2023, Additional history exists GFR 07/09/2024 01/08/2024, 09/25, 08/02/2023, Additional history exists HbA1c 08/01/2024 01/30/2024, 08/25, 07/31/2023, Additional history exists Diabetic Eye Exam 09/13/2024 09/13/2023, , 09/13/2023, Additional history exists B-12 09/18/2024 09/18/2023, 08/24, 2020, Additional history exists Albumin/Creatinine Ratio 01/07/2025 024, 03/09/2023, 12/22/2022, Additional history exists CKD HGB USE SMARTSET 41064 01/07/202501/07, 01/08/2024, 10/15/2023, Additional history exists TSH [...] this encounter Medical Devices Implanted Type Area Metal Drill Operator Device Identifier Shelf Expiration Date Model / Serial / Lot Cath Roselia Single Lumen - [id number] Implanted:Qty : 1 on 03/12/2008 at OR [facility] Left: [facility] *DO NOT USE* 07/25/2012 21-4053-24 / / [id number] Sut Steel 6 M654g - [id number] Implanted:Qty : 1 on 11/01/2010 at OR [facility] N/A: Chest DO NOT USE M654G / / Sut Steel 6 M654g - [id number] Implanted:Qty : 1 on 11/01/2010 at OR [facility] N/A: Chest DO NOT USE M654G / / Valve Tarsha Aortic [id number] - [id number] Implanted:Qty : 1 on 11/01/2010 at OR [facility] N/A: Heart [employer] D[employer]EL 05/20/2012 2800TFX-25 / / [id number] Mesh Soft [id number] - [id number] Implanted:Qty : 1 on 10/10/2019 by Gigi Hendrickson MD at [place] [facility] N/A: Abdomen CR BARD : DAVOL [id number] 05/21/2024 [id number] / / [id number] Lens 22.5 Sn60wf - [id number] - [id number] Implanted:Qty : 1 on 09/15/2020 by Renaldo Cook, Cece Acosta MD at OR [facility] Right: Eye IVA : SURGICAL [id number] 05/13/2025 SN60 WF.225 / [id number] / [id number] Lens 21.5 Sn60wf - [id number] - [id number] Implanted:Qty : 1 on 12/19/2023 by Ramsey Burnett DO at OR [facility] Left: Eye IVA : SURGICAL 12/03/2024 SN60WF.2 15 / [id number] / documented as of this encounter [...] or by statute hierarchy) Care Teams Wire Brush Operator Relationship Specialty Start Date End Date Gregory Rausch MD [address] [place] [address] PCP - General Family Medicine 02/12/20 documented as of this encounter
--- OUTSIDE RECORDS SUMMARY | 2024-06-05 14:51 | External Medical Summary | Summary of Care ---
Author Name Unknown Organization [facility] Address [address] [place] [address] Phone [phone] Care Team Providers Care Oil Separator Name Role Phone Gregory Rausch MD Primary Care Provider [phone] [phone] Reason for Visit * Reason Onset Date Comments Information 02/14/2024 Encounter Details Date Type Department Care Team (Late st Contact Info) Description 02/14/2024 Telephone [facility], [place] [address] [place] [address] Services, Scheduling [address] [place] [address] Information Allergies Active Allergy Reactions Criticality Noted [...] CHERAW) Inject 30 Units under the skin in [...] MEDICATIONS 90 Tablet 2 01/10/2024 Active Nystatin 065314 UNIT/GM External Powder (Nystop)Indications: Candidal intertrigo Apply [...] bedtime. 60 Capsule 02/07/2024 Active Dexcom G6 Panama Hat Smearer DeviceIndications:Ty pe 2 diabetes mellitus with stage [...] eye 09/28/2020 Coronary artery disease invo lving [place] coronary artery of [place] heart without angina pectoris 12/16/2019 Last Assessment [...] 12/21/2016 Diabetes mellitus 01/05/2014 12/21/2016 LEYVA RESEARCH OTHER*[id number] 01/05/2014 12/21/2016 Axillary pain 11/03/2013 12/21/2016 Obesity, [...] UNSPECIFI ED ([facility] BSO 08/25/2011) 08/26/2011 12/21/2016 ADVANCE DIRECTIVE INFORMATION 04/17/2011 12/21/2016 Overview: Yes, Patient instructed to provide copy of advance directive for provider to review and to be scanned into Electronic Medical Record ADVANCE DIRECTIVE INFORMATION 03/01/2011 12/21/2016 Overview: Yes, Patient instructed to provide copy of advance directive for provider to review and to be scanned into Electronic Medical Record [facility] V710 Clinical Trial*[id number] 12/22/2010 04/14/2011 S/P aortic valve replacement 12/01/2010 08/26/2011 S/P AORTIC VALVE REPLACEMENT - #25 pericardial Mc valve 11/01/2010 06/28/2018 Overview: Aortic valve replacement with #25 pericardial Mc valve, model 2800TFX, serial number [id number] (Dr. Walker) [facility] V710 Clinical Trial*[id number] 10/18/2010 11/21/2010 Type 2 diabetes mellitus wit [...] 06/07/2018,01/08/20 18,12/05/2017,06/15,10/27/2013,09/12/2013 Pneumococcal Conjugate Vacci ne, 20-valent ([id number]) 06/22/2023 Pneumococcal Polysaccharide PPV23 (Pneumovax) 01/02/2008 Seasonal [...] encounter Miscellaneous Notes * Telephone Encounter - Catherine Aldridge OSA - 02/14/2024 11:21 AM EDT Received TT from [facility] asking to get a mobile xray on pt. Call to [facility] at [phone], faxedorder to [phone], order #[id number]. documented in this encounter Plan of Treatment Upcoming Encounters Date Type Department Care Team (Late st Contact Info) Description 02/14/2024 1:00 PM EDT Scheduled Telephone [facility] [address] [place] [address] Coordinator, [facility] [address] [place] [address] 02/15/2024 12:00 PM EDT Scheduled Telephone [facility], [facility] [address] [facility] [place] [address] Coordinator, Rashard Boles [address] [facility] [place] [address] 02/21/2024 9:00 AM EDT Office Visit Pharmacy, [facility] [address] [place] [address] Pharmacist1, [facility] [address] [place] [address] 03/04/2024 11:00 AM EDT Home Visit Care Coordination and Integration [address] [place] [address] Angelica Navas, Community Health Residential Carpenter [address] [place] [address] 03/06/2024 7:45 AM EDT Office Visit Ophthalmology, [facility] [address] [place] [address] Ramsey Burnett, DO [address] [place] [address] 03/25/2024 10:00 AM EDT Home Visit [facility], [facility] [address] [facility] [place] [address] Jaycee Sorto, RN [address] [facility] [place] [address] 06/03/2024 9:00 AM EDT Telemedicine Psychiatry [facility] [address] [place] [address] Janice Atwood MD [address] [place] [address] 07/17/2024 9:30 AM EDT Office Visit Cardiology, [facility] [address] [place] [address] Roberto Carlos Muniz, [address] [place] [address] 08/12/2024 9:20 AM EST Office Visit Family Practice [facility] [address] [place] [address] Gregory Rausch MD [address] [place] [address] 11/27/2024 9:40 AM EST Office Visit Nephrology, [facility] [address] [facility] [place] [address] Fidelina Baumann MD 200 [facility] [place] [address] Scheduled Procedures Name Priority Associated Diagnoses Date/Ti [...] 10) 12/26/2023 12/25/2023 CKD PHOS USE SMARTSET 73940 06/18/202405/26, 06/16/2023, 06/15/2023, Additional history exists GFR 07/09/2024 01/08/2024, 09/25, 08/02/2023, Additional history exists HbA1c 08/01/2024 01/30/2024, 08/25, 07/31/2023, Additional history exists Diabetic Eye Exam 09/13/2024 09/13/2023, , 09/13/2023, Additional history exists B-12 09/18/2024 09/18/2023, 08/24, 2020, Additional history exists Albumin/Creatinine Ratio 01/07/2025 024, 03/09/2023, 12/22/2022, Additional history exists CKD HGB USE SMARTSET 41487 01/07/202501/07, 01/08/2024, 10/15/2023, Additional history exists TSH [...] this encounter Medical Devices Implanted Type Area Scheduler Conveyor Device Identifier Shelf Expiration Date Model / Serial / Lot Cath Roselia Single Lumen - [id number] Implanted:Qty : 1 on 03/12/2008 at OR [facility] Left: Chest [facility] *DO NOT USE* 07/25/2012 21-4053-24 / / [id number] Sut Steel 6 M654g - [id number] Implanted:Qty : 1 on 11/01/2010 at OR [facility] N/A: Chest DO NOT USE M654G / / Sut Steel 6 M654g - [id number] Implanted:Qty : 1 on 11/01/2010 at OR [facility] N/A: Chest DO NOT USE M654G / / Valve Tarsha Aortic [id number] - [id number] Implanted:Qty : 1 on 11/01/2010 at OR [facility] N/A: Heart [employer]EL 05/20/2012 2800TFX-25 / / [id number] Mesh Soft [id number] - [id number] Implanted:Qty : 1 on 10/10/2019 by Gigi Hendrickson [place] [facility] [place]/A: Abdomen CR BARD : DAVOL [id number] 05/21/2024 [id number] / / [id number] Lens 22.5 Sn60wf - [id number] - [id number] Implanted:Qty : 1 on 09/15/2020 by Renaldo Cook, Cece Acosta MD at OR [facility] Right: Eye IVA : SURGICAL [id number] 05/13/2025 SN60 WF.225 / [id number] / [id number] Lens 21.5 Sn60wf - [id number] - [id number] Implanted:Qty : 1 on 12/19/2023 by Ramsey Burnett DO at OR [facility] Left: Eye IVA : SURGICAL 12/03/2024 SN60WF.2 15 / [id number] / documented as of this encounter [...] patient or by statute hierarchy) Care Teams Oil Separator Relationship Specialty Start Date End Date Gregory Rausch MD [address] [place] [address] PCP - General Family Medicine 02/12/20 documented as of this encounter
--- OUTSIDE RECORDS SUMMARY | 2024-06-05 14:51 | External Medical Summary | Summary of Care ---
Author Name Unknown Organization [facility] Address [address] [place] [address] Phone [phone] Care Team Providers Care Barber Instructor Name Role Phone Gregory Rausch MD Primary Care Provider +1 [phone] Reason for Visit * Reason Onset Date Comments Appointment 02/14/2024 Encounter Details Date Type Department Care Team (Late st Contact Info) Description 02/14/2024 Telephone [facility], [facility] [address] [place] [address] Johana Bahena, Community Health Penal Officer [address] [place], [place] [id number] Appointment Allergies Active Allergy Reactions Criticality Noted [...] and 1 Tablet before bedtime. 180 Tablet 01/22/2024 Active Tresiba FlexTouch 200 UNIT/ML Subcutaneous Solution Pen-injector (Insulin Degludec)Indications :Type 2 diabetes mellitus with hemoglobin A1c goal of less than 7.0% ([facility]),Type 2 diabetes mellitus with stage 3a chronic kidney disease, with long-term current use of insulin ([facility]) Inject 30 Units under [...] MEDICATIONS 90 Tablet 2 01/10/2024 Active Nystatin 785747 UNIT/GM External Powder (Nystop)Indications: Candidal intertrigo Apply [...] bedtime. 60 Capsule 02/07/2024 Active Dexcom G6 Defect Cutter DeviceIndications:Ty pe 2 diabetes mellitus with stage [...] eye 09/28/2020 Coronary artery disease invo lving [place] coronary artery of [place] heart without angina pectoris 12/16/2019 Last [...] 12/21/2016 Diabetes mellitus 01/05/2014 12/21/2016 LEYVA RESEARCH OTHER*[id number] 01/05/2014 12/21/2016 Axillary pain 11/03/2013 12/21/2016 Obesity, [...] cath 09/201008/26/2011 12/21/2016 FOLLOWING SURGERY, UNSPECIFI ED ([facility] BSO 08/25/2011) 08/26/2011 12/21/2016 ADVANCE DIRECTIVE INFORMATION 04/17/2011 12/21/2016 Overview: Yes, Patient instructed to provide copy of advance directive for provider to review and to be scanned into Electronic Medical Record ADVANCE DIRECTIVE INFORMATION 03/01/2011 12/21/2016 Overview: Yes, Patient instructed to provide copy of advance directive for provider to review and to be scanned into Electronic Medical Record [facility] V710 Clinical Trial*[id number] 12/22/2010 04/14/2011 S/P aortic valve replacement 12/01/2010 08/26/2011 S/P AORTIC VALVE REPLACEMENT - #25 pericardial Mc valve 11/01/2010 06/28/2018 Overview: Aortic valve replacement with #25 pericardial Mc valve, model 2800TFX, serial number [id number] (Dr. Walker) [facility] V710 Clinical Trial*[id number] 10/18/2010 11/21/2010 Type 2 diabetes mellitus wit [...] 06/07/2018,01/08/20 18,12/05/2017,06/15,10/27/2013,09/12/2013 Pneumococcal Conjugate Vacci ne, 20-valent ([id number]) 06/22/2023 Pneumococcal Polysaccharide PPV23 (Pneumovax) 01/02/2008 Seasonal [...] encounter Miscellaneous Notes * Telephone Encounter - Johana Bahena Community Health Penal Officer - 02/14/2024 1:45 PM EDT Incoming call from Magda from [facility] stating that they received a call for an xray but never received the fax. Refaxed to [phone]. Per right fax faxes went through. documented in this encounter Plan of Treatment Upcoming Encounters Date Type Department Care Team (Late st Contact Info) Description 02/15/2024 12:00 PM EDT Scheduled Telephone [facility], [address] [place] [address] Coordinator, [facility] [address] [facility] [place] [address] 02/21/2024 9:00 AM EDT Office Visit Pharmacy, [facility] 200 [facility] [place] [address] Pharmacist1, [facility] 200 [facility] [place] [address] 03/04/2024 11:00 AM EDT Home Visit Care Coordination and Integration [address] [place] [address] Angelica Navas, Community Health Penal Officer [address] [place] [address] 03/06/2024 7:45 AM EDT Office Visit Ophthalmology, [facility] [address] [facility] [place] [address] Ramsey Burnett, DO [address] [place] [address] 03/25/2024 10:00 AM EDT Home Visit [facility], [facility] [address] [facility] [place] [address] Jaycee Sorto, RN 132 [place] [address] 06/03/2024 9:00 AM EDT Telemedicine Psychiatry [facility] [address] [place] [address] Janice Atwood MD [address] [place] [address] 07/17/2024 9:30 AM EDT Office Visit Cardiology, [facility] [address] [place] [address] Roberto Carlos Muniz, DO [address] [facility] [place] [address] 08/12/2024 9:20 AM EST Office Visit Family [facility] [address] [place] [address] Gregory Rausch MD [address] [place] [address] 11/27/2024 9:40 AM EST Office Visit Nephrology, [facility] 200 [facility] [place] [address] Fidelina Baumann MD [address] [place] [address] Scheduled Procedures Name Priority Associated Diagnoses Date/Ti [...] 10) 12/26/2023 12/25/2023 CKD PHOS USE SMARTSET 37943 06/18/202405/26, 06/16/2023, 06/15/2023, Additional history exists GFR 07/09/2024 01/08/2024, 09/25, 08/02/2023, Additional history exists HbA1c 08/01/2024 01/30/2024, 08/25, 07/31/2023, Additional history exists Diabetic Eye Exam 09/13/2024 09/13/2023, , 09/13/2023, Additional history exists B-12 09/18/2024 09/18/2023, 08/24, 2020, Additional history exists Albumin/Creatinine Ratio 01/07/2025 024, 03/09/2023, 12/22/2022, Additional history exists CKD HGB USE SMARTSET 81606 01/07/202501/07, 01/08/2024, 10/15/2023, Additional history exists TSH [...] encounter Medical Devices Implanted Type Area Curtain Cleaner Device Identifier Shelf Expiration Date Model / Serial / Lot Cath Roselia Single Lumen - [id number] Implanted:Qty : 1 on 03/12/2008 at OR [facility] Left: Chest [employer] *DO NOT USE* 07/25/2012 21-4053-24 / / [id number] Sut [facility] 6 M654g - [id number] Implanted:Qty : 1 on 11/01/2010 at OR [facility] N/A: Chest DO NOT USE M654G / / Sut Steel 6 M654g - [id number] Implanted:Qty : 1 on 11/01/2010 at OR [facility] N/A: Chest DO NOT USE M654G / / Valve Tarsha Aortic [id number] - [id number] Implanted:Qty : 1 on 11/01/2010 at OR [facility] N/A: Heart [employer] 05/20/2012 2800TFX-25 / / [id number] Mesh Soft [id number] - [id number] Implanted:Qty : 1 on 10/10/2019 by Gigi Hendrickson MD at OR [facility] N/A: Abdomen CR BARD : DAVOL [id number] 05/21/2024 [id number] / / [id number] Lens 22.5 Sn60wf - [id number] - [id number] Implanted:Qty : 1 on 09/15/2020 by Renaldo Cook, Cece Acosta MD at OR [facility] Right: Eye IVA : SURGICAL [id number] 05/13/2025 SN60 WF.225 / [id number] / [id number] Lens 21.5 Sn60wf - [id number] - [id number] Implanted:Qty : 1 on 12/19/2023 by Ramsey Burnett DO at OR [facility] Left: Eye IVA : SURGICAL 12/03/2024 SN60WF.2 15 / [id number] / documented as of this encounter [...] patient or by statute hierarchy) Care Teams Barber Instructor Relationship Specialty Start Date End Date Gregory Rausch MD [address] [place] [address] PCP - General Family Medicine 02/12/20 documented as of this encounter
--- OUTSIDE RECORDS SUMMARY | 2024-06-05 14:51 | External Medical Summary | Summary of Care ---
Author Name Unknown Organization [facility] Address [address] [place] [address] Phone [phone] Care Team Providers Care Parts Administrator Name Role Phone Gregory Rausch MD Primary Care Provider [phone] Reason for Visit * Reason Onset Date Comments [facility]: Maintenance 02/14/2024 Encounter Details Date Type Department Care Team (Late st Contact Info) Description 02/14/2024 1:00 PM EDT Scheduled Telephone [facility], [facility] [address] [place] [address] Coordinator, [facility] 132 [facility] [place] [address] Allergies Active Allergy Reactions Criticality Noted Date [...] Capsules by mouth in the morning. Active TerraGo TechnologiesTouch Verio In Vitro Strip (Glucose Blood) [...] MEDICATIONS 90 Tablet 2 01/10/2024 Active Nystatin 508832 UNIT/GM External Powder (Nystop)Indications: Candidal intertrigo Apply [...] bedtime. 60 Capsule 02/07/2024 Active Dexcom G6 Practical Nursing Instructor DeviceIndications:Ty pe 2 diabetes mellitus with stage [...] eye 09/28/2020 Coronary artery disease invo lving [place] coronary artery of [place] heart without angina pectoris 12/16/2019 Last Assessment [...] 12/21/2016 Diabetes mellitus 01/05/2014 12/21/2016 LEYVA RESEARCH OTHER*[id number] 01/05/2014 12/21/2016 Axillary pain 11/03/2013 12/21/2016 Obesity, [...] cath 09/201008/26/2011 12/21/2016 FOLLOWING SURGERY, UNSPECIFI ED ([facility] BSO 08/25/2011) 08/26/2011 12/21/2016 ADVANCE DIRECTIVE INFORMATION 04/17/2011 12/21/2016 Overview: Yes, Patient instructed to provide copy of advance directive for provider to review and to be scanned into Electronic Medical Record ADVANCE DIRECTIVE INFORMATION 03/01/2011 12/21/2016 Overview: Yes, Patient instructed to provide copy of advance directive for provider to review and to be scanned into Electronic Medical Record [facility] V710 Clinical Trial*[id number] 12/22/2010 04/14/2011 S/P aortic valve replacement 12/01/2010 08/26/2011 S/P AORTIC VALVE REPLACEMENT - #25 pericardial Mc valve 11/01/2010 06/28/2018 Overview: Aortic valve replacement with #25 pericardial Mc valve, model 2800TFX, serial number [id number] (Dr. Walker) [facility] V710 Clinical Trial*[id number] 10/18/2010 11/21/2010 Type 2 diabetes mellitus wit [...] 06/07/2018,01/08/20 18,12/05/2017,06/15,10/27/2013,09/12/2013 Pneumococcal Conjugate Vacci ne, 20-valent ([id number]) 06/22/2023 Pneumococcal Polysaccharide PPV23 (Pneumovax) 01/02/2008 Seasonal [...] Telephone Encounter - Angelica Welch RN - 02/14/2024 11:41 AM EDT Patient aware to continue antibiotics. Rn Travel confirmed that mobile chest xray is set up. On forfollow up call tomorrow to check results/symptoms. * Telephone Encounter - Miquel Soto MD - 02/14/2024 11:14 AM EDT Reasonable to continue antibiotics as they have some anti-inflammatory properties and could furtherguard against a superimposed bacterial pneumonia. E * Telephone Encounter - Rebekah Angelica PRABHA Bosch - 02/14/2024 8:24 AM EDT [facility] Telephonic Nurse Follow-Up Call [facility] Subprogram: Focused Care Management (3-9 months) Follow Up Call Type: 24 hour follow up Acute issue requiring follow-up call: Other: follow up on respiratory swab, chest xray, did she start Doxycycline? Objective: 02/13/2024 10:48 AM 02/04/2024 10:10 AM 01/22/2024 11:29 AM 01/18/2024 12:01 PM 01/08/2024 11:24 AM VITALS ACROSS ENCOUNTERS BP 132/70 134/68 160/80 116/76 152/74 Pulse 108 72 81 90 96 Weight 68.1 kg 70.7 kg 67.7 kg 70.6 kg BMI 30.32 kg/m2 31.45 kg/m2 30.12 kg/m2 31.43 kg/m2 Remote Patient Monitoring: NONE Oxygen Needs: NO supplemental oxygen needs identified DME Needs: NO DME needs identified Medications: New medication(s) added: Doxycyline 100mg po bid x 10 days . 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 Subjective: Condition Status: Improvement in symptoms but not at baseline Current Concerns: Spoke to patient who reports that she picked up the doxycyline and started it yesterday. Notes she is feeling some improvement in her breathing from yesterday. Still coughing up yellow. Pulse ox at time of call 92% on room air at rest. Afebrile. Denies chills. Tolerating the Doxycycline so far. Denies N/V or worsening diarrhea. On another course of Dificid for ongoing cdiff symptoms. Notes that she is having 4 diarrhea stools a day. No longer watery and has a thicker consistency, "like pea soup". Denies abdominal pain or cramping. Also taking the florastor as ordered. Reinforced to call [facility] if her stool frequency increases. Reports that she has not heard from mobile xray yet. Instructed to answer any/all calls even if unknown numbers as they will call prior to notify her of ETA. Per chart review, no notes indicating xray was arranged. TT to [facility] lumber tailer role Irina Alexander to set up today if possible, or tomorrow. Will follow up with patient tomorrow as well. Plan: Will route to [facility], care team for review of respiratory panel results, recommendations. Continue antibiotic unless instructed otherwise. Supportive care: drink fluids with goal of 64 oz per day Rest Tylenol for fever, body aches Mucinex to help thin secretions Saline nasal spray for nasal congestion. Follow up calls. Results for orders placed or performed in visit on 02/13/24 RESPIRATORY PATHOGEN PANEL, PCR Result Value Ref Range Adenovirus by PCR Negative Negative Coronavirus 229E by PCR Negative Negative Coronavirus HKU1 by PCR Negative Negative Coronavirus NL63 by PCR Negative Negative Coronavirus OC43 by PCR Negative Negative Coronavirus SARS-CoV-2 by PCR Negative Negative Human Metapneumovirus by PCR Negative Negative Rhinovirus/Enterovirus by PCR Negative Negative Influenza A Virus by PCR Negative Negative Influenza B Virus by PCR Negative Negative Parainfluenza Virus 1 by PCR Negative Negative Parainfluenza Virus 2 by PCR Negative Negative Parainfluenza Virus 3 by PCR Positive (A) Negative Parainfluenza Virus 4 by PCR Negative Negative Respiratory Syncytial Virus by PCR Negative Negative Bordetella pertussis by PCR Negative Negative Chlamydia pneumoniae by PCR Negative Negative Mycoplasma pneumoniae by PCR Negative Negative Bordetella parapertussis by PCR Negative Negative *Note: Due to a large number of results and/or encounters for the requested time period, some results have not been displayed. A complete set of results can be found in Results Review. Disposition: Routed to [facility] and/or [facility] Care Team for further advice and Follow up call scheduled for tomorrow with [facility] Corporate Coordinator Future Visits Scheduled: Future Appointments-next 60 days Date/Time Provider Specialty Dept Phone 02/14/2024 1:00 PM Coordinator, [facility] [phone] 02/15/2024 12:00 PM [facility], [facility] [phone] 02/21/2024 9:00 AM Pharmacist1, [facility] [phone] 03/04/2024 11:00 AM Angelica Navas Community Health Nurse Private Duty Family Medicine [phone] 03/06/2024 7:45 AM Ramsey Burnett DO Ophthalmology [phone] 03/25/2024 10:00 AM Jaycee Sorto, RN [facility] [phone] 06/03/2024 9:00 AM Janice Atwood MD Psychiatry [phone] 07/17/2024 9:30 AM (Arrive by 9:15 AM) Roberto Carlos Muniz DO Cardiology [phone] 08/12/2024 9:20 AM (Arrive by 9:05 AM) Gregory Rausch MD Family Medicine [phone] 11/27/2024 9:40 AM (Arrive by 9:25 AM) Fidelina Baumann MD Nephrology [phone] Angelica Welch, PRABHA documented in this encounter Plan of Treatment Upcoming Encounters Date Type Department Care Team (Late st Contact Info) Description 02/15/2024 12:00 PM EDT Scheduled Telephone [facility], [facility] 132 [facility] [place] [address] Coordinator, [facility] [place] [address] 02/21/2024 9:00 AM EDT Office Visit Pharmacy, [facility] [address] [facility] [place] [address] Pharmacist1, [facility] 200 [facility] [place] [address] 03/04/2024 11:00 AM EDT Home Visit Care Coordination and Integration [address] [facility] [place] [address] Angelica Navas, Community Health Nurse Private Duty [address] [place] [address] 03/06/2024 7:45 AM EDT Office Visit Ophthalmology, [facility] 132 [facility] [place] [address] Ramsey Burnett, DO [address] [facility] [place] [address] 03/25/2024 10:00 AM EDT Home Visit [facility], [facility] 132 [facility] [place] [address] Jaycee Sorto, RN 132 [facility] [place] [address] 06/03/2024 9:00 AM EDT Telemedicine Psychiatry [facility] [address] [place] [address] Janice Atwood MD [address] [facility] [place] [id number] 07/17/2024 9:30 AM EDT Office Visit Cardiology, [facility] [address] [facility] [place] [address] Roberto Carlos Muniz, DO 132 [facility] [place] [address] 08/12/2024 9:20 AM EST Office Visit Family Practice [facility] 132 [facility] [place] [address] Gregory Rausch MD 132 [facility] [place] [address] 11/27/2024 9:40 AM EST Office Visit Nephrology, [facility] [address] [facility] [place] [address] Fidelina Baumann MD 200 [facility] [place] [address] Scheduled Procedures Name Priority Associated Diagnoses Date/Ti [...] 10) 12/26/2023 12/25/2023 CKD PHOS USE SMARTSET 10173 06/18/202405/26, 06/16/2023, 06/15/2023, Additional history exists GFR 07/09/2024 01/08/2024, 09/25, 08/02/2023, Additional history exists HbA1c 08/01/2024 01/30/2024, 08/25, 07/31/2023, Additional history exists Diabetic Eye Exam 09/13/2024 09/13/2023, , 09/13/2023, Additional history exists B-12 09/18/2024 09/18/2023, 08/24, 2020, Additional history exists Albumin/Creatinine Ratio 01/07/2025 024, 03/09/2023, 12/22/2022, Additional history exists CKD HGB USE SMARTSET 95119 01/07/202501/07, 01/08/2024, 10/15/2023, Additional history exists TSH [...] this encounter Medical Devices Implanted Type Area Tire Balancer Device Identifier Shelf Expiration Date Model / Serial / Lot Cath Roselia Single Lumen - [id number] Implanted:Qty : 1 on 03/12/2008 at OR [facility] Left: Chest [facility] *DO NOT USE* 07/25/2012 21-4053-24 / / [id number] Sut Steel 6 M654g - [id number] Implanted:Qty : 1 on 11/01/2010 at OR [facility] N/A: Chest DO NOT USE M654G / / Sut Steel 6 M654g - [id number] Implanted:Qty : 1 on 11/01/2010 at OR [facility] N/A: Chest DO NOT USE M654G / / Valve Tarsha Aortic [id number] - [id number] Implanted:Qty : 1 on 11/01/2010 at OR [facility] N/A: Heart [employer] DANIEL 05/20/2012 2800TFX-25 / / [id number] Mesh Soft 50x73sb - [id number] Implanted:Qty : 1 on 10/10/2019 by Gigi Hendrickson MD at [place] [facility] [place] [place] N/A: Abdomen CR BARD : DAVOL [id number] 05/21/2024 [id number] / / [id number] Lens 22.5 Sn60wf - [id number] - [id number] Implanted:Qty : 1 on 09/15/2020 by Renaldo Cook, Cece Acosta MD at OR [facility] Right: Eye IVA : SURGICAL [id number] 05/13/2025 SN60 WF.225 / [id number] / [id number] Lens 21.5 Sn60wf - [id number] - [id number] Implanted:Qty : 1 on 12/19/2023 by Ramsey Burnett DO at OR [facility] Left: Eye IVA : SURGICAL 12/03/2024 SN60WF.2 15 / [id number] / documented as of this encounter [...] patient or by statute hierarchy) Care Teams Parts Administrator Relationship Specialty Start Date End Date Gregory Rausch MD [address] [place] [address] PCP - General Family Medicine 02/12/20 documented as of this encounter
--- OUTSIDE RECORDS SUMMARY | 2024-06-05 14:51 | External Medical Summary | Summary of Care ---
Author Name Unknown Organization [facility] Address [address] [place] [address] Phone [phone] Care Team Providers Care Food Safety Officer Name Role Phone Gregory Rausch MD Primary Care Provider [phone] Reason for Visit * Reason Onset Date Comments [facility]: Maintenance 02/14/2024 Encounter Details Date Type Department Care Team (Late st Contact Info) Description 02/14/2024 1:00 PM EDT Scheduled Telephone [facility], [facility] 132 [facility] [place] [address] Coordinator, [facility] 132 [facility] [place] [address] Allergies Active Allergy Reactions Criticality Noted Date [...] Capsules by mouth in the morning. Active Connect ControlsTouch Verio In Vitro Strip (Glucose Blood) Use [...] CAMPUS) Inject 30 Units under the skin in [...] MEDICATIONS 90 Tablet 2 01/10/2024 Active Nystatin 458307 UNIT/GM External Powder (Nystop)Indications: Candidal intertrigo Apply [...] 60 Capsule 02/07/2024 Active Dexcom G6 Director River Restoration DeviceIndications:Ty pe 2 diabetes mellitus with stage [...] eye 09/28/2020 Coronary artery disease invo lving [place] coronary artery of [place] heart without angina pectoris 12/16/2019 Last Assessment [...] 12/21/2016 Diabetes mellitus 01/05/2014 12/21/2016 LEYVA RESEARCH OTHER*[id number] 01/05/2014 12/21/2016 Axillary pain 11/03/2013 12/21/2016 Obesity, [...] 09/201008/26/2011 12/21/2016 FOLLOWING SURGERY, UNSPECIFI ED ([facility] BSO 08/25/2011) 08/26/2011 12/21/2016 ADVANCE [...] [facility] V710 Clinical Trial*[id number] 12/22/2010 04/14/2011 S/P aortic valve replacement 12/01/2010 08/26/2011 S/P AORTIC VALVE REPLACEMENT - #25 pericardial Mc valve 11/01/2010 06/28/2018 Overview: Aortic valve replacement with #25 pericardial Mc valve, model 2800TFX, serial number [id number] (Dr. Walker) [facility] V710 Clinical Trial*[id number] 10/18/2010 11/21/2010 Type 2 diabetes mellitus wit [...] 06/07/2018,01/08/20 18,12/05/2017,06/15,10/27/2013,09/12/2013 Pneumococcal Conjugate Vacci ne, 20-valent ([id number]) 06/22/2023 Pneumococcal Polysaccharide PPV23 (Pneumovax) 01/02/2008 Seasonal [...] AM EDT Patient aware to continue antibiotics. Power Supply Engineer confirmed that mobile chest xray is set [...] [facility] Telephonic Nurse Follow-Up Call [facility] Subprogram: Focused Care Management (3-9 months) [...] the florastor as ordered. Reinforced to call [facility] if her stool frequency increases. Reports that she has not heard from mobile xray yet. Instructed to answer any/all calls even if unknown numbers as they will call prior to notify her of ETA. Per chart review, no notes indicating xray was arranged. TT to [facility] roaster operator role Irina [place] to set up today if possible, or tomorrow. Will follow up with patient tomorrow as well. Plan: Will route to [facility], care team for review of respiratory [...] found in Results Review. Disposition: Routed to [facility] and/or [facility] Care Team for further advice and Follow up call scheduled for tomorrow with [facility] Gun Striper Future Visits Scheduled: Future Appointments-next 60 days Date/Time Provider Specialty Dept Phone 02/14/2024 1:00 PM Coordinator, [facility] [phone] 02/15/2024 12:00 PM [facility], [facility] [phone] 02/21/2024 9:00 AM Pharmacist1, [facility] [phone] 03/04/2024 11:00 AM Angelica Navas Community Health Fashion Director Family Medicine [phone] 03/06/2024 7:45 AM Ramsey Burnett DO Ophthalmology [phone] 03/25/2024 10:00 AM Jaycee Sorto, RN [facility] [phone] 06/03/2024 9:00 AM Janice Atwood MD Psychiatry [phone] 07/17/2024 9:30 AM (Arrive by 9:15 AM) Roberto Carlos Muniz DO Cardiology [phone] 08/12/2024 9:20 AM (Arrive by 9:05 AM) Gregory Rausch MD Family Medicine [phone] 11/27/2024 9:40 AM (Arrive by 9:25 AM) Fidelina Baumann MD Nephrology [phone] Angelica Welch, PRABHA documented in this encounter Plan of Treatment Upcoming Encounters Date Type Department Care Team (Late st Contact Info) Description 02/15/2024 12:00 PM EDT Scheduled Telephone [facility], [facility] 132 [facility] [place] [address] Coordinator, [facility] [place] [address] 02/21/2024 9:00 AM EDT Office Visit Pharmacy, [facility] 200 [facility] [place] [address] Pharmacist1, [facility] 200 [facility] [place] [address] 03/04/2024 11:00 AM EDT Home Visit Care Coordination and Integration [address] [facility] [place] [address] Angelica Navas, Community Health Fashion Director [address] [place] [address] 03/06/2024 7:45 AM EDT Office Visit Ophthalmology, [facility] [address] [facility] [place] [address] Ramsey Burnett, DO [facility] [place] [address] 03/25/2024 10:00 AM EDT Home Visit [facility] at Home, [facility] 132 [facility] [place] [address] Jaycee Sorto, RN 132 [facility] [place] [address] 06/03/2024 9:00 AM EDT Telemedicine [facility] [place] [address] Janice Atwood MD [address] [facility] [place] [id number] 07/17/2024 9:30 AM EDT Office Visit Cardiology, [facility] 132 [facility] [place] [address] Roberto Carlos Muniz, DO 132 [facility] [place] [address] 08/12/2024 9:20 AM EST Office Visit Family Practice [facility] 132 [facility] [place] [address] Gregory Rausch MD [address] [facility] [place] [address] 11/27/2024 9:40 AM EST Office Visit Nephrology, [facility] [address] [facility] [place] [address] Fidelina Baumann MD 200 [facility] [place] [address] Scheduled Procedures Name Priority Associated Diagnoses Date/Ti [...] 10) 12/26/2023 12/25/2023 CKD PHOS USE SMARTSET 13672 06/18/202405/26, 06/16/2023, 06/15/2023, Additional history exists GFR 07/09/2024 01/08/2024, 09/25, 08/02/2023, Additional history exists HbA1c 08/01/2024 01/30/2024, 08/25, 07/31/2023, Additional history exists Diabetic Eye Exam 09/13/2024 09/13/2023, , 09/13/2023, Additional history exists B-12 09/18/2024 09/18/2023, 08/24, 2020, Additional history exists Albumin/Creatinine Ratio 01/07/2025 024, 03/09/2023, 12/22/2022, Additional history exists CKD HGB USE SMARTSET 64460 01/07/202501/07, 01/08/2024, 10/15/2023, Additional history exists TSH [...] encounter Medical Devices Implanted Type Area Food Mobile Driver Device Identifier Shelf Expiration Date Model / Serial / Lot Cath Roselia Single Lumen - [id number] Implanted:Qty : 1 on 03/12/2008 at OR [facility] Left: Chest [facility] *DO NOT USE* 07/25/2012 21-4053-24 / / [id number] Sut Steel 6 M654g - [id number] Implanted:Qty : 1 on 11/01/2010 at OR [facility] N/A: Chest DO NOT USE M654G / / Sut Steel 6 M654g - [id number] Implanted:Qty : 1 on 11/01/2010 at OR [facility] N/A: Chest DO NOT USE M654G / / Valve Tarsha Aortic [id number] - [id number] Implanted:Qty : 1 on 11/01/2010 at OR [facility] N/A: Heart [employer] 05/20/2012 2800TFX-25 / / [id number] Mesh Soft 09v83cd - [id number] Implanted:Qty : 1 on 10/10/2019 by Gigi Hendrickson MD at [place] [facility] [place] N/A: Abdomen CR BARD : DAVOL [id number] 05/21/2024 [id number] / / [id number] Lens 22.5 Sn60wf - [id number] - [id number] Implanted:Qty : 1 on 09/15/2020 by Renaldo Cook, Cece Acosta MD at OR [facility] Right: Eye IVA : SURGICAL [id number] 05/13/2025 SN60 WF.225 / [id number] / [id number] Lens 21.5 Sn60wf - [id number] - [id number] Implanted:Qty : 1 on 12/19/2023 by Ramsey Burnett DO at OR [facility] Left: Eye IVA : SURGICAL 12/03/2024 SN60WF.2 15 / [id number] / documented as of this encounter [...] patient or by statute hierarchy) Care Teams Food Safety Officer Relationship Specialty Start Date End Date Gregory Rausch MD [address] [place] [address] PCP - General Family Medicine 02/12/20 documented as of this encounter
--- OUTSIDE RECORDS SUMMARY | 2024-06-05 14:51 | External Medical Summary | Summary of Care ---
Author Name Unknown Organization [facility] Address [address] [place] [address] Phone [phone] Care Team Providers Care Medical Records Secretary Name Role Phone Gregory Rausch MD Primary Care Provider [phone] Reason for Visit * Reason Onset Date Comments [facility]: Maintenance 02/15/2024 Encounter Details Date Type Department Care Team (Late st Contact Info) Description 02/15/2024 12:00 PM EDT Scheduled Telephone [facility], [facility] [address] [place] [address] Coordinator, [facility] [address] [place] [address] Allergies Active Allergy Reactions Criticality Noted Date Comments Adhesive Tape 07/02/2017 Can tolerate band-aids Glycerin Other (Please comment) 03/12/2008 Topical agents with glycein-burning & itching Lactose 12/09/2014 Dairy - gas Lisinopril Cough 01/21/2010 Monosodium Glutamate Edema Other 03/12/2008 Hands and feet Penicillins Rash 11/14/2007 documented as of this encounter (statuses as of 02/15/2024) Medications Medication Sig Dispensed Refills Start Date [...] Capsules by mouth in the morning. Active Erbix - Beetux SoftwareTouch Verio In Vitro Strip (Glucose Blood) Use [...] MEDICATIONS 90 Tablet 2 01/10/2024 Active Nystatin 279568 UNIT/GM External Powder (Nystop)Indications: Candidal intertrigo Apply [...] bedtime. 60 Capsule 02/07/2024 Active Dexcom G6 Applique Cutter DeviceIndications:Ty pe 2 diabetes mellitus with [...] as of this encounter (statuses as of 02/15/2024) Active Problems Problem Noted Date Diagnosed Date [...] eye 09/28/2020 Coronary artery disease invo lving [place] coronary artery of [place] heart without angina pectoris 12/16/2019 Last Assessment [...] as of this encounter (statuses as of 02/15/2024) Resolved Problems Problem Noted Date Diagnosed Date [...] 12/21/2016 Diabetes mellitus 01/05/2014 12/21/2016 LEYVA RESEARCH OTHER*[id number] 01/05/2014 12/21/2016 Axillary pain 11/03/2013 12/21/2016 Obesity, [...] 12/21/2016 FOLLOWING SURGERY, UNSPECIFI ED ([facility] BSO 08/25/2011) 08/26/2011 12/21/2016 ADVANCE DIRECTIVE INFORMATION 04/17/2011 12/21/2016 Overview: Yes, Patient instructed to provide copy of advance directive for provider to review and to be scanned into Electronic Medical Record ADVANCE DIRECTIVE INFORMATION 03/01/2011 12/21/2016 Overview: Yes, Patient instructed to provide copy of advance directive for provider to review and to be scanned into Electronic Medical Record [facility] V710 Clinical Trial*[id number] 12/22/2010 04/14/2011 S/P aortic valve replacement 12/01/2010 08/26/2011 S/P AORTIC VALVE REPLACEMENT - #25 pericardial Hernandez valve 11/01/2010 06/28/2018 Overview: Aortic valve replacement with #25 pericardial Hernandez valve, model 2800TFX, serial number [id number] (Dr. Walker) [facility] V710 Clinical Trial*[id number] 10/18/2010 11/21/2010 Type 2 diabetes mellitus wit [...] as of this encounter (statuses as of 02/15/2024) Immunizations Name Administration Dates Next Due COVID-19 mRNA, LNP-s, No Pre serve, 2-Dose Series (Moderna) 10/25/2021,02/16/2021,01/18/2021 HEP A - Hepatitis A (Adult > 18 yrs) 06/07/2018, 12/05/2017 Hepatitis B, 20+ yrs 06/07/2018,01/08/20 18,12/05/2017,06/15,10/27/2013,09/12/2013 Pneumococcal Conjugate Vacci ne, 20-valent ([id number]) 06/22/2023 Pneumococcal Polysaccharide PPV23 (Pneumovax) 01/02/2008 Seasonal [...] Telephone Encounter - Shilpa Tadeo RN - 02/15/2024 11:37 AM EDT [facility] Telephonic Nurse Follow-Up Call [facility] Subprogram: Focused Care Management (3-9 months) Follow Up Call Type: Routine follow up call / Status Check Acute issue requiring follow-up call: Other: URI Objective: 02/13/2024 10:48 AM 02/04/2024 10:10 AM 01/22/2024 11:29 AM 01/18/2024 12:01 PM 01/08/2024 11:24 AM VITALS ACROSS ENCOUNTERS BP 132/70 134/68 160/80 116/76 152/74 Pulse 108 72 81 90 96 Weight 68.1 kg 70.7 kg 67.7 kg 70.6 kg BMI 30.32 kg/m2 31.45 kg/m2 30.12 kg/m2 31.43 kg/m2 Remote [place]: [facility] [place]: Oxygen Needs: NO CHANGE from baseline supplemental oxygen needs DME Needs: NO DME needs identified Medications: New medication(s) added: Doxycycline 100mg po bid x 10 days Subjective: Condition Status: Improvement in symptoms but not at baseline Current Concerns: Spoke with Jovita, reports feeling better today, breathing has improved, still coughing, gets SOB when she coughs, coughing up yellow phlegm, SPO2 is 95% on room air, denies any fever/chills, no N/V still has diarrhea, is daily but is not as watery as it was, is taking Dificid, has 3 days left, CXR was completed last night and in chart and negative, compliant with all medications and antibiotic, stay hydrated with clear liquids, tylenol prn for fever/body aches, mucinex as directed, saline nasal spray prn Disposition: [place] [facility] [place]or [facility] Care Team for further advice and Follow up call scheduled for tomorrow with [facility] Filler Room Attendant Future Visits Scheduled: Future Appointments-next 60 days Date/Time Provider Specialty Dept Phone 02/15/2024 12:00 PM [facility] [phone] 02/21/2024 9:00 AM Pharmacist1, [facility] [phone] 03/04/2024 11:00 AM Angelica Navas [facility] Health Application Development Specialist Family Medicine [phone] 03/06/2024 7:45 AM Ramsey Burnett DO Ophthalmology [phone] 03/25/2024 10:00 AM Jaycee Sorto RN [facility] [phone] 06/03/2024 9:00 AM Janice Atwood MD Psychiatry [phone] 07/17/2024 9:30 AM (Arrive by 9:15 AM) Roberto Carlos Muniz DO Cardiology [phone] 08/12/2024 9:20 AM (Arrive by 9:05 AM) Gregory Rausch MD Family Medicine [phone] 11/27/2024 9:40 AM (Arrive by 9:25 AM) Fidelina Baumann MD Nephrology [phone] Shilpa Tadeo, RN documented in this encounter Plan of Treatment Upcoming Encounters Date Type Department Care Team (Late st Contact Info) Description 02/16/2024 8:30 AM EDT Scheduled Telephone [facility], [facility] [address] [facility] [place] [address] [facility], Nurse [facility] [address] [facility] [place] [address] 02/21/2024 9:00 AM EDT Office Visit Pharmacy, [facility] [address] [place] [address] Pharmacist1, [facility] [address] [facility] [address] 03/04/2024 11:00 AM EDT Home Visit Care Coordination and Integration [address] [place] [address] Angelica Navas, Community [facility] Application Development Specialist [address] [place] [address] 03/06/2024 7:45 AM EDT Office Visit Ophthalmology, [facility] [address] [facility] [place] [address] Ramsey Burnett, DO [address] [facility] [place] [address] 03/25/2024 10:00 AM EDT Home Visit [facility], [facility] [address] [facility] [place] [address] Jaycee Sorto, PRABHA [address] [facility] [place] [address] 06/03/2024 9:00 AM EDT Telemedicine Psychiatry [address] [place] [phone] Janice Atwood MD [address] [place] [address] 07/17/2024 9:30 AM EDT Office Visit Cardiology, [facility] [address] [place] [address] Roberto Carlos Muniz, [address] [place] [address] 08/12/2024 9:20 AM EST Office Visit Family Practice [facility] [address] [place] [address] Gregory Rausch MD [address] [place] [address] 11/27/2024 9:40 AM EST Office Visit Nephrology, [facility] 200 [facility] [place] [address] Fidelina Baumann MD [address] [facility] [place] [address] Scheduled Procedures Name Priority Associated Diagnoses Date/Ti [...] 10) 12/26/2023 12/25/2023 CKD PHOS USE SMARTSET 60210 06/18/202405/26, 06/16/2023, 06/15/2023, Additional history exists GFR 07/09/2024 01/08/2024, 09/25, 08/02/2023, Additional history exists HbA1c 08/01/2024 01/30/2024, 08/25, 07/31/2023, Additional history exists Diabetic Eye Exam 09/13/2024 09/13/2023, , 09/13/2023, Additional history exists B-12 09/18/2024 09/18/2023, 08/24, 2020, Additional history exists Albumin/Creatinine Ratio 01/07/2025 024, 03/09/2023, 12/22/2022, Additional history exists CKD HGB USE SMARTSET 27039 01/07/202501/07, 01/08/2024, 10/15/2023, Additional history exists TSH [...] this encounter Medical Devices Implanted Type Area Icd 9 Coder Device Identifier Shelf Expiration Date Model / Serial / Lot Cath Roselia Single Lumen - [id number] Implanted:Qty : 1 on 03/12/2008 at OR [facility] Left: Chest [facility] *DO NOT USE* 07/25/2012 21-4053-24 / / [id number] Sut Steel 6 M654g - [id number] Implanted:Qty : 1 on 11/01/2010 at OR [facility] N/A: Chest DO NOT USE M654G / / Sut Steel 6 M654g - [id number] Implanted:Qty : 1 on 11/01/2010 at OR [facility] N/A: Chest DO NOT USE M654G / / Valve Tarsha Aortic [id number] - [id number] Implanted:Qty : 1 on 11/01/2010 at OR [facility] N/A: Heart [employer] DANIEL 05/20/2012 2800TFX-25 / / [id number] Mesh Soft [id number] - [id number] Implanted:Qty : 1 on 10/10/2019 by Gigi Hendrickson MD at [facility] N/A: Abdomen CR BARD : DAVOL [id number] 05/21/2024 [id number] / / [id number] Lens 22.5 Sn60wf - [id number] - [id number] Implanted:Qty : 1 on 09/15/2020 by Cece Roland MD at [facility] Right: Eye IVA : SURGICAL [id number] 05/13/2025 SN60 WF.225 / [id number] / [id number] Lens 21.5 Sn60wf - [id number] - [id number] Implanted:Qty : 1 on 12/19/2023 by Ramsey Burnett DO at OR [facility] Left: Eye IVA : SURGICAL 12/03/2024 SN60WF.2 15 / [id number] / documented as of this encounter [...] or by statute hierarchy) Care Teams Medical Records Secretary Relationship Specialty Start Date End Date Gregory Rausch MD [address] [place] [address] PCP - General Family Medicine 02/12/20 documented as of this encounter
--- OUTSIDE RECORDS SUMMARY | 2024-06-05 14:52 | External Medical Summary | Summary of Care ---
Author Name Unknown Organization [facility] Address [address] [place] [address] Phone [phone] Care Team Providers Care Electronics Processor Name Role Phone Gregory Rausch MD Primary Care Provider [phone] Reason for Visit * Reason Onset Date Comments [facility]: Maintenance 02/13/2024 Encounter Details Date Type Department Care Team (Late st Contact Info) Description 02/13/2024 Telephone [facility], [facility] [address] [place], [place] [id number] [facility], Nurse [facility] [address] [place] [address] [facility]: Maintenance Allergies Active Allergy Reactions Criticality Noted Date Comments Adhesive Tape 07/02/2017 Can tolerate band-aids Glycerin Other (Please comment) 03/12/2008 Topical agents with glycein-burning & itching Lactose 12/09/2014 Dairy - gas Lisinopril Cough 01/21/2010 Monosodium Glutamate Edema Other 03/12/2008 Hands and feet Penicillins Rash 11/14/2007 documented as of this encounter (statuses as of 02/13/2024) Medications Medication Sig Dispensed Refills Start Date [...] Capsules by mouth in the morning. Active TripChampTouch Verio In Vitro Strip (Glucose Blood) Use [...] LORIS) Inject 30 Units under the skin in [...] MEDICATIONS 90 Tablet 2 01/10/2024 Active Nystatin 067718 UNIT/GM External Powder (Nystop)Indications: Candidal intertrigo Apply [...] bedtime. 60 Capsule 02/07/2024 Active Dexcom G6 Manager Rail DeviceIndications:Ty pe 2 diabetes mellitus with stage 3a chronic kidney disease, with long-term current use of insulin (HCC) Use as directed. 1 Each 02/08/2024 Active Dexcom G6 TransmitterIndicatio ns:Type 2 diabetes mellitus with stage 3a chronic kidney disease, with long-term current use of insulin (HCC) Use as directed. 1 Each 02/08/2024 Active documented as of this encounter (statuses as of 02/13/2024) Active Problems Problem Noted Date Diagnosed Date [...] 09/28/2020 Coronary artery disease invo lving [place] coronary artery of [place] heart without angina pectoris 12/16/2019 Last Assessment [...] as of this encounter (statuses as of 02/13/2024) Resolved Problems Problem Noted Date Diagnosed Date [...] 12/21/2016 Diabetes mellitus 01/05/2014 12/21/2016 LEYVA RESEARCH OTHER*[id number] 01/05/2014 12/21/2016 Axillary pain 11/03/2013 12/21/2016 Obesity, [...] Medical Record [facility] V710 Clinical Trial*[id number] 12/22/2010 04/14/2011 S/P aortic valve replacement 12/01/2010 08/26/2011 S/P AORTIC VALVE REPLACEMENT - #25 pericardial Mc valve 11/01/2010 06/28/2018 Overview: Aortic valve replacement with #25 pericardial Mc valve, model 2800TFX, serial number [id number] (Dr. Walker) [facility] V710 Clinical Trial*[id number] 10/18/2010 11/21/2010 Type 2 diabetes mellitus wit [...] as of this encounter (statuses as of 02/13/2024) Immunizations Name Administration Dates Next Due COVID-19 mRNA, LNP-s, No Pre serve, 2-Dose Series (Moderna) 10/25/2021,02/16/2021,01/18/2021 HEP A - Hepatitis A (Adult > 18 yrs) 06/07/2018, 12/05/2017 Hepatitis B, 20+ yrs 06/07/2018,01/08/20 18,12/05/2017,06/15,10/27/2013,09/12/2013 Pneumococcal Conjugate Vacci ne, 20-valent ([id number]) 06/22/2023 Pneumococcal Polysaccharide PPV23 (Pneumovax) 01/02/2008 Seasonal [...] encounter Miscellaneous Notes * Telephone Encounter - Mariann Ken RN - 02/13/2024 10:28 AM EDT Phone call from patient asking if STARLA is still making HV today as appt. is scheduled for 10 am andnurse is not there yet. Patient asking ETA. Message sent to STARLA Champion who states she just pulled up to patients home. Mariann Ken RN, BSN [facility] rotor assembler Navigator documented in this encounter Plan of Treatment Upcoming Encounters Date Type Department Care Team (Late st Contact Info) Description 02/21/2024 9:00 AM EDT Office Visit Pharmacy, [place] [address] [facility] [place] [address] Pharmacist1, [facility] [address] [facility] [place] [address] 03/06/2024 7:45 AM EDT Office Visit Ophthalmology, [facility] [address] [facility] [place] [address] Ramsey Burnett, DO [address] [facility] [place] [address] 06/03/2024 9:00 AM EDT Telemedicine Psychiatry [place] [address] [place] [phone] Janice Atwood MD [address] [facility] [place] [id number] 07/17/2024 9:30 AM EDT Office Visit Cardiology, [facility] [address] [facility] [place] [address] Roberto Carlos Muniz, DO [address] [facility] [place] [address] 08/12/2024 9:20 AM EST Office Visit Family Practice [facility] [address] [facility] [place] [address] Gregory Rausch MD [address] [facility] [place] [address] 11/27/2024 9:40 AM EST Office Visit Nephrology, [facility] [address] [facility] [place] [address] Fidelina Baumann MD [address] [facility] [place] [address] Scheduled Procedures Name Priority Associated Diagnoses Date/Ti [...] 10) 12/26/2023 12/25/2023 CKD PHOS USE SMARTSET 78649 06/18/202405/26, 06/16/2023, 06/15/2023, Additional history exists GFR 07/09/2024 01/08/2024, 09/25, 08/02/2023, Additional history exists HbA1c 08/01/2024 01/30/2024, 08/25, 07/31/2023, Additional history exists Diabetic Eye Exam 09/13/2024 09/13/2023, , 09/13/2023, Additional history exists B-12 09/18/2024 09/18/2023, 08/24, 2020, Additional history exists Albumin/Creatinine Ratio 01/07/2025 024, 03/09/2023, 12/22/2022, Additional history exists CKD HGB USE SMARTSET 87003 01/07/202501/07, 01/08/2024, 10/15/2023, Additional history exists TSH [...] this encounter Medical Devices Implanted Type Area Farm Loan Inspector Device Identifier Shelf Expiration Date Model / Serial / Lot Cath Roselia Single Lumen - [id number] Implanted:Qty : 1 on 03/12/2008 at OR [facility] Left: Chest [facility] *DO NOT USE* 07/25/2012 21-4053-24 / / [id number] Sut Steel 6 M654g - [id number] Implanted:Qty : 1 on 11/01/2010 at OR [facility] N/A: Chest DO NOT USE M654G / / Sut Steel 6 M654g - [id number] Implanted:Qty : 1 on 11/01/2010 at OR [facility] N/A: Chest DO NOT USE M654G / / Valve Tarsha Aortic [id number] - [id number] Implanted:Qty : 1 on 11/01/2010 at OR [facility] N/A: Heart [employer] DANIEL 05/20/2012 2800TFX-25 / / [id number] Mesh Soft [id number] - [id number] Implanted:Qty : 1 on 10/10/2019 by Gigi Hendrickson [place] [facility] [place]/A: Abdomen CR BARD : DAVOL [id number] 05/21/2024 [id number] / / [id number] Lens 22.5 Sn60wf - [id number] - [id number] Implanted:Qty : 1 on 09/15/2020 by Renaldo Cook, Cece Acosta MD at [facility] Right: Eye IVA : SURGICAL [id number] 05/13/2025 SN60 WF.225 / [id number] / [id number] Lens 21.5 Sn60wf - [id number] - [id number] Implanted:Qty : 1 on 12/19/2023 by Ramsey Burnett, at OR [facility] Left: Eye IVA : SURGICAL 12/03/2024 SN60WF.2 / [id number] / documented as of this encounter [...] patient or by statute hierarchy) Care Teams Electronics Processor Relationship Specialty Start Date End Date Gregory Rausch MD [address] [place] [address] PCP - General Family Medicine 02/12/20 documented as of this encounter
--- OUTSIDE RECORDS SUMMARY | 2024-06-05 14:52 | External Medical Summary | Summary of Care ---
Author Name Unknown Organization [facility] Address [address] [place] [address] Phone [phone] Care Team Providers Care Receiving Barn Custodian Name Role Phone Gregory Rausch MD Primary Care Provider [phone] Reason for Visit * Reason Onset Date Comments [facility]: Maintenance 02/14/2024 Encounter Details Date Type Department Care Team (Late st Contact Info) Description 02/14/2024 1:00 PM EDT Scheduled Telephone [facility], [facility] [address] [place] [address] Coordinator, [facility] 132 [place] [address] Allergies Active Allergy Reactions Criticality Noted Date [...] Capsules by mouth in the morning. Active DialedINTouch Verio In Vitro Strip (Glucose Blood) Use up to 4 times a day E11.9 100 Strip 11 01/22/2024 Active Potassium Chloride [facility] 10 MEQ Oral Tablet Extended ReleaseIndications:A cute on chronic heart failure with preserved ejection fraction (HFpEF) ([facility]) Take 1 Tablet by mouth in the morning and 1 Tablet before bedtime. 180 Tablet 3 01/22/2024 Active Tresiba FlexTouch 200 UNIT/ML Subcutaneous Solution Pen-injector (Insulin Degludec)Indications :Type 2 diabetes mellitus with hemoglobin A1c goal of less than 7.0% ([facility]),Type 2 diabetes mellitus with stage 3a chronic kidney disease, with long-term current use of insulin ([facility]) Inject 30 Units under the skin in the morning. 6 mL 2 01/10/2024 Active BD Pen Needle Short U/F 31G X 8 MMIndications:Type 2 diabetes mellitus with hemoglobin A1c goal of less than 7.0% ([facility]),Type 2 diabetes mellitus with stage 3a chronic kidney disease, with long-term current use of insulin ([facility]) Use with insulin 4 times daily [...] MEDICATIONS 90 Tablet 2 01/10/2024 Active Nystatin 368828 UNIT/GM External Powder (Nystop)Indications: Candidal intertrigo Apply [...] bedtime. 60 Capsule 02/07/2024 Active Dexcom G6 Fibre Cement Moulder DeviceIndications:Ty pe 2 diabetes mellitus with stage [...] eye 09/28/2020 Coronary artery disease invo lving [place] coronary artery of [place] heart without angina pectoris 12/16/2019 Last Assessment [...] 12/21/2016 Diabetes mellitus 01/05/2014 12/21/2016 LEYVA RESEARCH OTHER*[id number] 01/05/2014 12/21/2016 Axillary pain 11/03/2013 12/21/2016 Obesity, [...] scanned into Electronic Medical Record [facility] V710 Clinical Trial*[id number] 12/22/2010 04/14/2011 S/P aortic valve replacement 12/01/2010 08/26/2011 S/P AORTIC VALVE REPLACEMENT - #25 pericardial Mc valve 11/01/2010 06/28/2018 Overview: Aortic valve replacement with #25 pericardial Mc valve, model 2800TFX, serial number [id number] (Dr. Walker) [facility] V710 Clinical Trial*[id number] 10/18/2010 11/21/2010 Type 2 diabetes mellitus wit [...] 06/07/2018,01/08/20 18,12/05/2017,06/15,10/27/2013,09/12/2013 Pneumococcal Conjugate Vacci ne, 20-valent ([id number]) 06/22/2023 Pneumococcal Polysaccharide PPV23 (Pneumovax) 01/02/2008 Seasonal [...] encounter Miscellaneous Notes * Telephone Encounter - Miquel Soto MD - 02/14/2024 11:14 AM EDT Reasonable to continue antibiotics as they have some anti-inflammatory properties and could furtherguard against a superimposed bacterial pneumonia. E * Telephone Encounter - Angelica Welch RN - 02/14/2024 8:24 AM EDT [facility] Telephonic Nurse Follow-Up Call [facility] Subprogram: Focused Care Management (3-9 months) [...] the florastor as ordered. Reinforced to call [facility] if her stool frequency increases. Reports that she has not heard from mobile xray yet. Instructed to answer any/all calls even if unknown numbers as they will call prior to notify her of ETA. Per chart review, no notes indicating xray was arranged. TT to [facility] j2ee software engineer role Irina Alexander to set up today if possible, or tomorrow. Will follow up with patient tomorrow as well. Plan: Will route to [facility], care team for review of respiratory panel [...] found in Results Review. Disposition: Routed to [facility] and[facility]or [facility] for further advice and Follow up call scheduled for tomorrow with [facility] Pre Kindergarten Teacher Future Visits Scheduled: Future Appointments-next 60 days Date/Time Provider Specialty Dept Phone 02/14/2024 1:00 PM Coordinator, [facility] [phone] 02/15/2024 12:00 PM [facility] [phone] 02/21/2024 9:00 AM Pharmacist1, [facility] [phone] 03/04/2024 11:00 AM Angelica Navas [facility] [employer] Family Medicine [phone] 03/06/2024 7:45 AM Ramsey Burnett DO Ophthalmology [phone] 03/25/2024 10:00 AM Jaycee Sorto RN [facility] [phone] 06/03/2024 9:00 AM Janice Atwood MD Psychiatry [phone] 07/17/2024 9:30 AM (Arrive by 9:15 AM) Roberto Carlos Muniz DO Cardiology [phone] 08/12/2024 9:20 AM (Arrive by 9:05 AM) Gregory Rausch MD Family Medicine [phone] 11/27/2024 9:40 AM (Arrive by 9:25 AM) Fidelina Baumann MD Nephrology [phone] Angelica Welch RN documented in this encounter Plan of Treatment Upcoming Encounters Date Type Department Care Team (Late st Contact Info) Description 02/15/2024 12:00 PM EDT Scheduled Telephone [facility], [facility] 132 [facility] [place] [address] Coordinator, [facility] [place] [address] 02/21/2024 9:00 AM EDT Office Visit Pharmacy, [facility] [address] Pharmacist1, [facility] 200 [place] [address] 03/04/2024 11:00 AM EDT Home Visit Care Coordination and Integration [address] [place] [address] Angelica Navas, [facility] [employer] [address] [place] [address] 03/06/2024 7:45 AM EDT Office Visit Ophthalmology, [facility] 132 [facility] [place] [address] Ramsey Burnett DO [address] [facility] [place] [address] 03/25/2024 10:00 AM EDT Home Visit [facility], [facility] 132 [facility] [place] [address] Jaycee Sorto, PRABHA 132 [place] [address] 06/03/2024 9:00 AM EDT Telemedicine Psychiatry [facility] [address] [place] [phone] Janice Atwood MD [address] [place] [address] 07/17/2024 9:30 AM EDT Office Visit Cardiology, [facility] 132 [place] [address] Roberto Carlos Muniz DO 132 [facility] [place] [address] 08/12/2024 9:20 AM EST Office Visit Family Practice [facility] 132 [place] [address] Gregory Rausch MD 132 [place] [address] 11/27/2024 9:40 AM EST Office Visit Nephrology, [facility] 200 [facility] [place] [address] Fidelina Baumann MD 200 [facility] [place] [address] Scheduled Procedures Name Priority Associated Diagnoses Date/Ti [...] 10) 12/26/2023 12/25/2023 CKD PHOS USE SMARTSET 74303 06/18/202405/26, 06/16/2023, 06/15/2023, Additional history exists GFR 07/09/2024 01/08/2024, 09/25, 08/02/2023, Additional history exists HbA1c 08/01/2024 01/30/2024, 08/25, 07/31/2023, Additional history exists Diabetic Eye Exam 09/13/2024 09/13/2023, , 09/13/2023, Additional history exists B-12 09/18/2024 09/18/2023, 08/24, 2020, Additional history exists Albumin/Creatinine Ratio 01/07/2025 024, 03/09/2023, 12/22/2022, Additional history exists CKD HGB USE SMARTSET 47247 01/07/202501/07, 01/08/2024, 10/15/2023, Additional history exists TSH [...] this encounter Medical Devices Implanted Type Area Deputy County Attorney Device Identifier Shelf Expiration Date Model / Serial / Lot Cath Roselia Single Lumen - [id number] Implanted:Qty : 1 on 03/12/2008 at OR [facility] Left: Chest [facility] *DO NOT USE* 07/25/2012 21-4053-24 / / [id number] Sut Steel 6 M654g - [id number] Implanted:Qty : 1 on 11/01/2010 at OR [facility] N/A: Chest DO NOT USE M654G / / Sut Steel 6 M654g - [id number] Implanted:Qty : 1 on 11/01/2010 at OR [facility] N/A: Chest DO NOT USE M654G / / Valve Tarsha Aortic [id number] - [id number] Implanted:Qty : 1 on 11/01/2010 at OR [facility] N/A: Heart [employer] DANIEL 05/20/2012 2800TFX-25 / / [id number] Mesh Soft 82b38hn - [id number] Implanted:Qty : 1 on 10/10/2019 by Gigi Hendrickson MD at [place] [facility] N/A: Abdomen CR BARD : DAVOL [id number] 05/21/2024 [id number] / / [id number] Lens 22.5 Sn60wf - [id number] - [id number] Implanted:Qty : 1 on 09/15/2020 by Renaldo Cook, Cece Acosta MD at OR [facility] Right: Eye IVA : SURGICAL [id number] 05/13/2025 SN60 WF.225 / [id number] / [id number] Lens 21.5 Sn60wf - [id number] - [id number] Implanted:Qty : 1 on 12/19/2023 by Ramsey Burnett DO at OR [facility] Left: Eye IVA : SURGICAL 12/03/2024 SN60WF.2 15 / [id number] / documented as of this encounter [...] Agents on File Name Relationship Healthcare Agent [facility] p Communication Gigi Rose Adult Child Health Care Repr esentative (appointed verbally by patient or by statute hierarchy) Care Teams Receiving Barn Custodian Relationship Specialty Start Date End Date Gregory Rausch MD [address] [place] [address] PCP - General Family Medicine 02/12/20 documented as of this encounter
--- OUTSIDE RECORDS SUMMARY | 2024-06-05 14:52 | External Medical Summary ---
Author Name Unknown Address Unknown Organization K01:[facility] - [address] [facility] [address] Laboratory Report Ordering Provider Test Date Status WAYLON SERRATO 02/13/2024 12:19:50 Final Observation Date Value Abnormality Reference (Units ) Status Adenovirus DNA [Presence] in Nasopharynx by RADHA with non-probe detection 02/13/2024 12:19:50 Negative Negative Final Human coronavirus 229E RNA [Presence] in Nasopharynx by RADHA with non-probe detection 02/13/2024 12:19:50 Negative Negative Final Human coronavirus HKU1 RNA [Presence] in Nasopharynx by RADHA with non-probe detection 02/13/2024 12:19:50 Negative Negative Final Human coronavirus NL63 RNA [Presence] in Nasopharynx by RADHA with non-probe detection 02/13/2024 12:19:50 Negative Negative Final Human coronavirus OC43 RNA [Presence] in Nasopharynx by RADHA with non-probe detection 02/13/2024 12:19:50 Negative Negative Final SARS-CoV-2 (COVID-19) RNA [Presence] in Nasopharynx by RADHA with non-probe detection 02/13/2024 12:19:50 Negative Negative Final Human metapneumovirus RNA [Presence] in Nasopharynx by RADHA with non-probe detection 02/13/2024 12:19:50 Negative Negative Final Rhinovirus+Enterovirus RNA [Presence] in Nasopharynx by RADHA with non-probe detection 02/13/2024 12:19:50 Negative Negative Final Influenza virus A RNA [Presence] in Nasopharynx by RADHA with non-probe detection 02/13/2024 12:19:50 Negative Negative Final Influenza virus B RNA [Presence] in Nasopharynx by RADHA with non-probe detection 02/13/2024 12:19:50 Negative Negative Final Parainfluenza virus 1 RNA [Presence] in Nasopharynx by RADHA with non-probe detection 02/13/2024 12:19:50 Negative Negative Final Parainfluenza virus 2 RNA [Presence] in Nasopharynx by RADHA with non-probe detection 02/13/2024 12:19:50 Negative Negative Final Parainfluenza virus 3 RNA [Presence] in Nasopharynx by RADHA with non-probe detection 02/13/2024 12:19:50 Positive Abnormal Negative Final Parainfluenza virus 3 detect ed by PCR (amplified probe). Parainfluenza virus 4 RNA [P resence] in Nasopharynx by RADHA with non-probe detection 02/13/2024 12:19:50 Negative Negative Final Respiratory syncytial virus RNA [Presence] in Nasopharynx by RADHA with non-probe detection 02/13/2024 12:19:50 Negative Negative F inal Bordetella pertussis.pertuss is toxin promoter region [Presence] in Nasopharynx by RADHA with non-probe detection 02/13/2024 12:19:50 Negative Negative Final Chlamydophila pneumoniae DNA [Presence] in Nasopharynx by RADHA with non-probe detection 02/13/2024 12:19:50 Negative Negative Final Mycoplasma pneumoniae DNA [P resence] in Nasopharynx by RADHA with non-probe detection 02/13/2024 12:19:50 Negative Negative Final Bordetella parapertussis IS1 001 DNA [Presence] in Nasopharynx by RADHA with non-probe detection 02/13/2024 12:19:50 Negative Negative F inal
The primers that detect Rhinovirus may cross react with some Enterorviruses. The validation of bronchial specimens, tracheal aspirates, and throats for this assay was developed and performance characteristics determined by [employer]. The validation of alternate specimen types has not been cleared or approved by the U.S. Food and Drug Administration (FDA). It has been determined that such clearance or approval is not necessary. Performing Location [facility] - [facility] [place]. [facility] [address]
--- OUTSIDE RECORDS SUMMARY | 2024-06-05 14:52 | External Medical Summary | Summary of Care ---
Author Name Unknown Organization [facility] Address [address] [place] [address] Phone [phone] Care Team Providers Care Medical Scheduler Name Role Phone Gregory Rausch MD Primary Care Provider [phone] Reason for Visit * Reason Comments Outpatient Testing Encounter Details Date Type Department Care Team (Late st Contact Info) Description 02/13/2024 12:20 PM EDT Laboratory Laboratory [facility] [address] [place] [address] [facility] 200 [place] [address] Acute cough Allergies Active Allergy Reactions Criticality Noted Date [...] OTHER MEDICATIONS 90 Tablet 01/10/2024 Active Nystatin 122664 UNIT/GM External Powder (Nystop)Indications: Candidal intertrigo Apply [...] bedtime. 60 Capsule 02/07/2024 Active Dexcom G6 Advanced Seal Delivery System DeviceIndications:Ty pe 2 diabetes mellitus with stage [...] 12/21/2016 Diabetes mellitus 01/05/2014 12/21/2016 LEYVA RESEARCH OTHER*[id number] 01/05/2014 12/21/2016 Axillary pain 11/03/2013 12/21/2016 Obesity, [...] Medical Record [facility] V710 Clinical Trial*[id number] 12/22/2010 04/14/2011 S/P aortic valve replacement 12/01/2010 08/26/2011 S/P AORTIC VALVE REPLACEMENT - #25 pericardial Mc valve 11/01/2010 06/28/2018 Overview: Aortic valve replacement with #25 pericardial Mc valve, model 2800TFX, serial number [id number] (Dr. Walker) [facility] V710 Clinical Trial*[id number] 10/18/2010 11/21/2010 Type 2 diabetes mellitus wit [...] 06/07/2018,01/08/20 18,12/05/2017,06/15,10/27/2013,09/12/2013 Pneumococcal Conjugate Vacci ne, 20-valent ([id number]) 06/22/2023 Pneumococcal Polysaccharide PPV23 (Pneumovax) 01/02/2008 Seasonal [...] 1:00 PM EDT Scheduled Telephone [facility] [address] [place] [address] Coordinator, [facility] [address] [place] [address] 02/15/2024 12:00 PM EDT Scheduled Telephone [facility] [address] [place] [address] Coordinator, [facility] [address] [place] [address] 02/21/2024 9:00 AM EDT Office Visit Pharmacy, [facility] 200 [facility] [place] [address] Pharmacist1, [facility] 200 [facility] [place] [address] 03/04/2024 11:00 AM EDT Home Visit Care Coordination and Integration [address] [place] [address] Angelica Navas, [facility] Automotive Light Mechanic [address] [place] [address] 03/06/2024 7:45 AM EDT Office Visit Ophthalmology, [facility] [place] [address] Ramsey Burnett, DO [address] [facility] [place] [address] 03/25/2024 10:00 AM EDT [facility] Visit [facility], [facility] 132 [facility] [place] [address] Jaycee Sorto RN [facility] [place] [address] 06/03/2024 9:00 AM EDT Telemedicine Psychiatry [facility] [address] [place] [address] Janice Atwood MD [address] [place] [address] 07/17/2024 9:30 AM EDT Office Visit Cardiology, [facility] 132 [facility] [place] [address] Roberto Carlos Muniz, DO [address] [place] [address] 08/12/2024 9:20 AM EST Office Visit Family Practice [facility] 132 [facility] [place] [address] Gregory Rausch MD [address] [place] [address] 11/27/2024 9:40 AM EST Office Visit Nephrology, [place] [address] [facility] [address] [place] [address] Fidelina Baumann MD 200 [facility] [place] [address] Pending Results Name Type Priority Associated Diagnoses Date /Time RESPIRATORY PATHOGEN PANEL, PCR Lab Routine Acute cough 02/13/2024 12:19 PM EDT Scheduled Procedures Name Priority Associated Diagnoses [...] 10) 12/26/2023 12/25/2023 CKD PHOS USE SMARTSET 25491 06/18/202405/26, 06/16/2023, 06/15/2023, Additional history exists GFR 07/09/2024 01/08/2024, 09/25, 08/02/2023, Additional history exists HbA1c 08/01/2024 01/30/2024, 08/25, 07/31/2023, Additional history exists Diabetic Eye Exam 09/13/2024 09/13/2023, , 09/13/2023, Additional history exists B-12 09/18/2024 09/18/2023, 08/24, 2020, Additional history exists Albumin/Creatinine Ratio 01/07/2025 024, 03/09/2023, 12/22/2022, Additional history exists CKD HGB USE SMARTSET 24478 01/07/202501/07, 01/08/2024, 10/15/2023, Additional history exists TSH [...] this encounter Medical Devices Implanted Type Area Landfill Gas Technician Device Identifier Shelf Expiration Date Model / Serial / Lot Cath Roselia Single Lumen - [id number] Implanted:Qty : 1 on 03/12/2008 at OR [facility] Left: Chest [facility] *DO NOT USE* 07/25/2012 21-4053-24 / / [id number] Sut Steel 6 M654g - [id number] Implanted:Qty : 1 on 11/01/2010 at OR [facility] N/A: Chest DO NOT USE M654G / / Sut Steel 6 M654g - [id number] Implanted:Qty : 1 on 11/01/2010 at OR [facility] N/A: Chest DO NOT USE M654G / / Valve Tarsha Aortic [id number] - [id number] Implanted:Qty : 1 on 11/01/2010 at [facility] N/A: Heart [employer] 05/20/2012 2800TFX-25 / / [id number] Mesh Soft 66m55vl - [id number] Implanted:Qty : 1 on 10/10/2019 by Gigi Hendrickson MD at [facility] N/A: Abdomen CR BARD : DAVOL [id number] 05/21/2024 [id number] / / [id number] Lens 22.5 Sn60wf - [id number] - [id number] Implanted:Qty : 1 on 09/15/2020 by Renaldo Cook, Cece Acosta MD at OR [facility] Right: Eye IVA : SURGICAL [id number] 05/13/2025 SN60 WF.225 / [id number] / [id number] Lens 21.5 Sn60wf - [id number] - [id number] Implanted:Qty : 1 on 12/19/2023 by Ramsey Burnett DO at OR [facility] Left: Eye IVA : SURGICAL 12/03/2024 SN60WF.2 15 / [id number] / documented as of this encounter Visit Diagnoses Diagnosis Acute cough documented in this encounter Additional Health Concerns Infection Onset Date Last Indicated Resolved Time Respiratory Rule-Out 02/13/2024 02/13/2024 documented as of this encounter [...] or by statute hierarchy) Care Teams Medical Scheduler Relationship Specialty Start Date End Date Gregory Rausch MD 132 [facility] [place] [address] PCP - General Family Medicine 02/12/20 documented as of this encounter
--- OUTSIDE RECORDS SUMMARY | 2024-06-05 14:52 | External Medical Summary | Summary of Care ---
Author Name Unknown Organization [facility] Address [address] [place] [address] Phone [phone] Care Team Providers Care Cad Design Engineer Name Role Phone Gregory Rausch MD Primary Care Provider [phone] Encounter Details Date Type Department Care Team (Late st Contact Info) Description 02/12/2024 Population Health External Data Unspecified Department Allergies [...] HEALTH) Inject 30 Units under the skin in [...] MEDICATIONS 90 Tablet 2 01/10/2024 Active Nystatin 573374 UNIT/GM External Powder (Nystop)Indications: Candidal intertrigo Apply [...] bedtime. 60 Capsule 02/07/2024 Active Dexcom G6 Technical Stenographer DeviceIndications:Ty pe 2 diabetes mellitus with stage [...] eye 09/28/2020 Coronary artery disease invo lving [place] coronary artery of [place] heart without angina pectoris 12/16/2019 Last Assessment [...] 12/21/2016 Diabetes mellitus 01/05/2014 12/21/2016 LEYVA RESEARCH OTHER*[id number] 01/05/2014 12/21/2016 Axillary pain 11/03/2013 12/21/2016 Obesity, [...] cath 09/201008/26/2011 12/21/2016 FOLLOWING SURGERY, UNSPECIFI ED ([facility] BSO 08/25/2011) 08/26/2011 12/21/2016 ADVANCE DIRECTIVE INFORMATION 04/17/2011 12/21/2016 Overview: Yes, Patient instructed to provide copy of advance directive for provider to review and to be scanned into Electronic Medical Record ADVANCE DIRECTIVE INFORMATION 03/01/2011 12/21/2016 Overview: Yes, Patient instructed to provide copy of advance directive for provider to review and to be scanned into Electronic Medical Record [facility] V710 Clinical Trial*[id number] 12/22/2010 04/14/2011 S/P aortic valve replacement 12/01/2010 08/26/2011 S/P AORTIC VALVE REPLACEMENT - #25 pericardial Mc valve 11/01/2010 06/28/2018 Overview: Aortic valve replacement with #25 pericardial Mc valve, model 2800TFX, serial number [id number] (Dr. Walker) [facility] V710 Clinical Trial*[id number] 10/18/2010 11/21/2010 Type 2 diabetes mellitus wit [...] 06/07/2018,01/08/20 18,12/05/2017,06/15,10/27/2013,09/12/2013 Pneumococcal Conjugate Vacci ne, 20-valent ([id number]) 06/22/2023 Pneumococcal Polysaccharide PPV23 (Pneumovax) 01/02/2008 Seasonal [...] PM EDT Scheduled Telephone [facility], [facility] [address] [place] [address] Coordinator, [facility] [address] [place] [address] 02/15/2024 12:00 PM EDT Scheduled Telephone [facility] [place], [facility] [address] [place] [address] Coordinator, [facility] [address] [facility] [place] [address] 02/21/2024 9:00 AM EDT Office Visit Pharmacy, [employer] [address] [place] [address] Pharmacist1, [facility] [address] [place] [address] 03/04/2024 11:00 AM EDT Home Visit Care Coordination and Integration [address] [place] [address] Angelica Navas, [facility] Brine Tank Separator Operator [address], [place] [id number] 03/06/2024 7:45 AM EDT Office Visit Ophthalmology, [facility] [address] [facility] [place] [address] Ramsey Burnett DO [address] [place] [address] 03/25/2024 10:00 AM EDT Home Visit [facility], [facility] 132 [facility] [place] [address] Jaycee Sorto RN [address] [facility] [address] 06/03/2024 9:00 AM EDT Telemedicine Psychiatry [facility] [address] [place] [address] Janice Atwood MD [address], [place] [id number] 07/17/2024 9:30 AM EDT Office Visit Cardiology, [facility] 132 [facility] [place] [address] Roberto Carlos Muniz, [address] [facility] [place] [address] 08/12/2024 9:20 AM EST Office Visit Family Practice [facility] [address] [facility] [place] [address] Gregory Rausch MD 132 [facility] [address] 11/27/2024 9:40 AM EST [facility] [address] [place] [address] Fidelina Baumann MD [address] [place] [address] Scheduled Procedures Name Priority Associated Diagnoses Date/Ti [...] 10) 12/26/2023 12/25/2023 CKD PHOS USE SMARTSET 55363 06/18/202405/26, 06/16/2023, 06/15/2023, Additional history exists GFR 07/09/2024 01/08/2024, 09/25, 08/02/2023, Additional history exists HbA1c 08/01/2024 01/30/2024, 08/25, 07/31/2023, Additional history exists Diabetic Eye Exam 09/13/2024 09/13/2023, , 09/13/2023, Additional history exists B-12 09/18/2024 09/18/2023, 08/24, 2020, Additional history exists Albumin/Creatinine Ratio 01/07/2025 024, 03/09/2023, 12/22/2022, Additional history exists CKD HGB USE SMARTSET 07673 01/07/202501/07, 01/08/2024, 10/15/2023, Additional history exists TSH [...] this encounter Medical Devices Implanted Type Area Beater Worker Helper Device Identifier Shelf Expiration Date Model / Serial / Lot Cath Roselia Single Lumen - [id number] Implanted:Qty : 1 on 03/12/2008 at OR [facility] Left: Chest [facility] *DO NOT USE* 07/25/2012 21-4053-24 / / [id number] Sut Steel 6 M654g - [id number] Implanted:Qty : 1 on 11/01/2010 at OR [facility] N/A: Chest DO NOT USE M654G / / Sut Steel 6 M654g - [id number] Implanted:Qty : 1 on 11/01/2010 at OR [facility] N/A: Chest DO NOT USE M654G / / Valve Tarsha Aortic [id number] - [id number] Implanted:Qty : 1 on 11/01/2010 at OR [facility] N/A: Heart [employer] DANIEL 05/20/2012 2800TFX-25 / / [id number] Mesh Soft 70d78qg - [id number] Implanted:Qty : 1 on 10/10/2019 by Gigi Hendrickson MD at [place] [facility] N/A: Abdomen CR BARD : DAVOL [id number] 05/21/2024 [id number] / / [id number] Lens 22.5 Sn60wf - [id number] - [id number] Implanted:Qty : 1 on 09/15/2020 by Cece Roland MD at OR [facility] Right: Eye IVA : SURGICAL [id number] 05/13/2025 SN60 WF.225 / [id number] / [id number] Lens 21.5 Sn60wf - [id number] - [id number] Implanted:Qty : 1 on 12/19/2023 by Ramsey Burnett DO at OR [facility] Left: Eye IVA : SURGICAL 12/03/2024 SN60WF.2 15 / [id number] / documented as of this encounter [...] Agents on File Name Relationship Healthcare Agent [facility] p Communication Gigi Rose Adult Child Health Care Repr esentative (appointed verbally by patient or by statute hierarchy) Care Teams Cad Design Engineer Relationship Specialty Start Date End Date Gregory Rausch MD [address] [place] [address] PCP - General Family Medicine 02/12/20 documented as of this encounter
--- OUTSIDE RECORDS SUMMARY | 2024-06-05 14:52 | External Medical Summary | Summary of Care ---
Author Name Unknown Organization [facility] Address [address] [place] [address] Phone [phone] Care Team Providers Care Real Estate Broker Associate Name Role Phone Gregory Rausch MD Primary Care Provider [phone] Reason for Visit * Reason Onset Date Comments [facility]: Maintenance 02/14/2024 Encounter Details Date Type Department Care Team (Late st Contact Info) Description 02/14/2024 1:00 PM EDT Scheduled Telephone [facility], [facility] [address] [place] [address] Coordinator, [facility] 132 [facility] [place] [address] Allergies Active Allergy Reactions Criticality Noted Date [...] Capsules by mouth in the morning. Active Elli HealthTouch Verio In Vitro Strip (Glucose Blood) Use up to 4 times a day E11.9 100 Strip 11 01/22/2024 Active Potassium Chloride [facility] 10 MEQ Oral Tablet Extended ReleaseIndications:A cute on chronic heart failure with preserved ejection fraction (HFpEF) ([facility]) Take 1 Tablet by mouth in the morning and 1 Tablet before bedtime. 180 Tablet 3 01/22/2024 Active Tresiba FlexTouch 200 UNIT/ML Subcutaneous Solution Pen-injector (Insulin Degludec)Indications :Type 2 diabetes mellitus with hemoglobin A1c goal of less than 7.0% ([facility]),Type 2 diabetes mellitus with stage 3a chronic kidney disease, with long-term current use of insulin ([facility]) Inject 30 Units under the skin in the morning. 6 mL 2 01/10/2024 Active BD Pen Needle Short U/F 31G X 8 MMIndications:Type 2 diabetes mellitus with hemoglobin A1c goal of less than 7.0% ([facility]),Type 2 diabetes mellitus with stage 3a chronic kidney disease, with long-term current use of insulin ([facility]) Use with insulin 4 times [...] MEDICATIONS 90 Tablet 2 01/10/2024 Active Nystatin 874163 UNIT/GM External Powder (Nystop)Indications: Candidal intertrigo Apply [...] bedtime. 60 Capsule 02/07/2024 Active Dexcom G6 Real Estate Specialist DeviceIndications:Ty pe 2 diabetes mellitus with stage [...] eye 09/28/2020 Coronary artery disease invo lving [place] coronary artery of [place] heart without angina pectoris 12/16/2019 Last Assessment [...] 12/21/2016 Diabetes mellitus 01/05/2014 12/21/2016 LEYVA RESEARCH OTHER*[id number] 01/05/2014 12/21/2016 Axillary pain 11/03/2013 12/21/2016 Obesity, [...] cath 09/201008/26/2011 12/21/2016 FOLLOWING SURGERY, UNSPECIFI ED ([facility] BSO 08/25/2011) 08/26/2011 12/21/2016 ADVANCE DIRECTIVE INFORMATION 04/17/2011 12/21/2016 Overview: Yes, Patient instructed to provide copy of advance directive for provider to review and to be scanned into Electronic Medical Record ADVANCE DIRECTIVE INFORMATION 03/01/2011 12/21/2016 Overview: Yes, Patient instructed to provide copy of advance directive for provider to review and to be scanned into Electronic Medical Record [facility] V710 Clinical Trial*[id number] 12/22/2010 04/14/2011 S/P aortic valve replacement 12/01/2010 08/26/2011 S/P AORTIC VALVE REPLACEMENT - #25 pericardial Mc valve 11/01/2010 06/28/2018 Overview: Aortic valve replacement with #25 pericardial Mc valve, model 2800TFX, serial number [id number] (Dr. Walker) [facility] V710 Clinical Trial*[id number] 10/18/2010 11/21/2010 Type 2 diabetes mellitus wit [...] 06/07/2018,01/08/20 18,12/05/2017,06/15,10/27/2013,09/12/2013 Pneumococcal Conjugate Vacci ne, 20-valent ([id number]) 06/22/2023 Pneumococcal Polysaccharide PPV23 (Pneumovax) 01/02/2008 Seasonal [...] [facility] Telephonic Nurse Follow-Up Call [facility] Subprogram: Focused Care Management (3-9 months) [...] the florastor as ordered. Reinforced to call [facility] if her stool frequency increases. Reports that she has not heard from mobile xray yet. Instructed to answer any/all calls even if unknown numbers as they will call prior to notify her of ETA. Per chart review, no notes indicating xray was arranged. TT to [facility] acidizer role Irina Alexander to set up today if possible, or tomorrow. Will follow up with patient tomorrow as well. Plan: Will route to [facility], care team for review of respiratory panel [...] found in Results Review. Disposition: Routed to [facility] and/or [facility] Care Team for further advice and Follow up call scheduled for tomorrow with [facility] Family Law Attorney Future Visits Scheduled: Future Appointments-next 60 days Date/Time Provider Specialty Dept Phone 02/14/2024 1:00 PM Coordinator, [facility] [phone] 02/15/2024 12:00 PM [facility] [phone] 02/21/2024 9:00 AM Pharmacist1, [facility] [phone] 03/04/2024 11:00 AM Angelica Navas [facility] Car[facility] All Driver Family Medicine [phone] 03/06/2024 7:45 AM Ramsey Burnett DO Ophthalmology [phone] 03/25/2024 10:00 AM Jaycee Sorto RN [facility] [phone] 06/03/2024 9:00 AM Janice Atwood MD Psychiatry [phone] 07/17/2024 9:30 AM (Arrive by 9:15 AM) Roberto Carlos Muniz DO Cardiology [phone] 08/12/2024 9:20 AM (Arrive by 9:05 AM) Gregory Rausch MD Family Medicine [phone] 11/27/2024 9:40 AM (Arrive by 9:25 AM) Fidelina Baumann MD Nephrology [phone] Angelica Welch RN documented in this encounter Plan of Treatment Upcoming Encounters Date Type Department Care Team (Late st Contact Info) Description 02/15/2024 12:00 PM EDT Scheduled Telephone [facility], [facility] [address] [facility] [place] [address] Coordinator, [facility] [address] [facility] [place] [address] 02/21/2024 9:00 AM EDT Office Visit Pharmacy, [facility] [address] [facility] [address] Pharmacist1, [facility] [address] [facility] [address] 03/04/2024 11:00 AM EDT Home Visit Care Coordination and Integration [address] [place] [address] Angelica Navas, [facility] Carry All Driver [address] [place] [address] 03/06/2024 7:45 AM EDT Office Visit Ophthalmology, [facility] [address] [facility] [place] [address] Ramsey Burnett DO [address] [place] [address] 03/25/2024 10:00 AM EDT Home Visit [facility], [facility] [address] [facility] [place] [address] Jaycee Sorto, PRABHA 132 [place] [address] 06/03/2024 9:00 AM EDT Telemedicine Psychiatry [facility] [address] [place] [address] Janice Atwood MD [address] [place] [address] 07/17/2024 9:30 AM EDT Office Visit Cardiology, [facility] 132 [place] [address] Roberto Carlos Muniz DO 132 [place] [address] 08/12/2024 9:20 AM EST Office Visit Family Practice [facility] [address] [place] [address] Gregory Rausch MD 132 [place] [address] 11/27/2024 9:40 AM EST Office Visit Nephrology, [facility] [address] [place] [address] Fidelina Baumann MD [address] [place] [address] Scheduled Procedures Name Priority Associated Diagnoses Date/Ti [...] 10) 12/26/2023 12/25/2023 CKD PHOS USE SMARTSET 80627 06/18/202405/26, 06/16/2023, 06/15/2023, Additional history exists GFR 07/09/2024 01/08/2024, 09/25, 08/02/2023, Additional history exists HbA1c 08/01/2024 01/30/2024, 08/25, 07/31/2023, Additional history exists Diabetic Eye Exam 09/13/2024 09/13/2023, , 09/13/2023, Additional history exists B-12 09/18/2024 09/18/2023, 08/24, 2020, Additional history exists Albumin/Creatinine Ratio 01/07/2025 024, 03/09/2023, 12/22/2022, Additional history exists CKD HGB USE SMARTSET 07109 01/07/202501/07, 01/08/2024, 10/15/2023, Additional history exists TSH [...] this encounter Medical Devices Implanted Type Area Machine Tool Rebuilder Device Identifier Shelf Expiration Date Model / Serial / Lot Cath Roselia Single Lumen - [id number] Implanted:Qty : 1 on 03/12/2008 at OR [facility] Left: Chest [facility] *DO NOT USE* 07/25/2012 21-4053-24 / / [id number] Sut Steel 6 M654g - [id number] Implanted:Qty : 1 on 11/01/2010 at OR [facility] N/A: Chest DO NOT USE M654G / / Sut Steel 6 M654g - [id number] Implanted:Qty : 1 on 11/01/2010 at OR [facility] N/A: Chest DO NOT USE M654G / / Valve Tarsha Aortic [id number] - [id number] Implanted:Qty : 1 on 11/01/2010 at OR [facility] N/A: Heart [employer] DANIEL 05/20/2012 2800TFX-25 / / [id number] Mesh Soft [id number] - [id number] Implanted:Qty : 1 on 10/10/2019 by Gigi Hendrickson MD at OR [facility] N/A: Abdomen CR BARD : DAVOL [id number] 05/21/2024 [id number] / / [id number] Lens 22.5 Sn60wf - [id number] - [id number] Implanted:Qty : 1 on 09/15/2020 by Renaldo Cook, Cece Acosta MD at OR [facility] Right: Eye IVA : SURGICAL [id number] 05/13/2025 SN60 WF.225 / [id number] / [id number] Lens 21.5 Sn60wf - [id number] - [id number] Implanted:Qty : 1 on 12/19/2023 by Ramsey Burnett DO at OR [facility] Left: Eye IVA : SURGICAL 12/03/2024 SN60WF.2 15 / [id number] / documented as of this encounter [...] Agents on File Name Relationship Healthcare Agent [facility] p Communication Gigi Rose Adult Child Health Care Repr esentative (appointed verbally by patient or by statute hierarchy) Care Teams Real Estate Broker Associate Relationship Specialty Start Date End Date Gregory Rausch MD [address] [place] [address] PCP - General Family Medicine 02/12/20 documented as of this encounter
--- OUTSIDE RECORDS SUMMARY | 2024-06-05 14:52 | External Medical Summary | Summary of Care ---
Author Name Unknown Organization [facility] Address [address] [place] [address] Phone [phone] Care Team Providers Care Iron Setter Name Role Phone Gregory Rausch MD Primary Care Provider [phone] Reason for Visit * Reason Comments [facility]: Maintenance Encounter Details Date Type Department Care Team (Late st Contact Info) Description 02/13/2024 10:00 AM EDT Home Visit [facility], [facility] [address] [facility] [place] [address] Jaycee Sorto, RN [address] [facility] [place] [address] Acute cough* Allergies Active Allergy Reactions Criticality Noted Date [...] MEDICATIONS 90 Tablet 2 01/10/2024 Active Nystatin 316617 UNIT/GM External Powder (Nystop)Indications: Candidal intertrigo Apply [...] bedtime. 60 Capsule 02/07/2024 Active Dexcom G6 Lead Retail Sales Associate DeviceIndications:Ty pe 2 diabetes mellitus with stage [...] eye 09/28/2020 Coronary artery disease invo lving platinum coronary artery of platinum heart without angina pectoris 12/16/2019 Last Assessment [...] 12/21/2016 Diabetes mellitus 01/05/2014 12/21/2016 LEYVA RESEARCH OTHER*[id number] 01/05/2014 12/21/2016 Axillary pain 11/03/2013 12/21/2016 Obesity, [...] 09/201008/26/2011 12/21/2016 FOLLOWING SURGERY, UNSPECIFI ED ([facility] 08/25/2011) 08/26/2011 12/21/2016 ADVANCE DIRECTIVE [...] Medical Record [facility] V710 Clinical Trial*[id number] 12/22/2010 04/14/2011 S/P aortic valve replacement 12/01/2010 08/26/2011 S/P AORTIC VALVE REPLACEMENT - #25 pericardial Hernandez valve 11/01/2010 06/28/2018 Overview: Aortic valve replacement with #25 pericardial Hernandez valve, model 2800TFX, serial number [id number] (Dr. Walker) [facility] V710 Clinical Trial*[id number] 10/18/2010 11/21/2010 Type 2 diabetes mellitus wit [...] 06/07/2018,01/08/20 18,12/05/2017,06/15,10/27/2013,09/12/2013 Pneumococcal Conjugate Vacci ne, 20-valent ([id number]) 06/22/2023 Pneumococcal Polysaccharide PPV23 (Pneumovax) 01/02/2008 Seasonal [...] Sign Reading Time Taken Comments Blood Pressure 132/70 02/13/2024 10:48 AM EDT Pulse 108 02/13/2024 10:48 AM EDT Temperature 37.6 C (99.7 F) 02/13/2024 10:48 AM E DT Respiratory Rate 18 02/13/2024 10:48 AM EDT Oxygen Saturation 99% 02/13/2024 10:48 AM EDT Inhaled Oxygen Concentration - - Weight 68.1 kg (150 lb 3.2 oz) 02/13/2024 10:48 AM EDT Height - - Body Mass Index 30.32 12/19/2023 12:36 PM EDT documented in this [...] as of this encounter Progress Notes * Roberto Carlos Fish MD - 02/13/2024 11:09 AM EDT Persistent resp sx, rhonchi Exposure to virus Acute cough (Primary) - XR CHEST 2 VIEWS - RESPIRATORY PATHOGEN PANEL, PCR; Future; Expected date: 02/13/2024 Other orders - Doxycycline Hyclate 100 MG Oral Capsule; Take 1 Capsule by mouth in the morning and 1 Capsule before bedtime. Do all this for 10 days. Until gone.. Follow-up phone call tomorrow. Roberto Carlos Fish MD, [facility] [place] [facility], [employer] [place] [place] [facility] at Available on [employer] * Jaycee Sorto RN - 02/13/2024 10:35 AM EDT [facility] Reeling Machine Setup Operator Visit Date: 02/13/2024 Time: 10:35 AM Name: Jovita Rose : 1960 Current Concerns: Communication Note Name: Jovita Rose Situation: Pt seen for return RNCM visit Caregiver present for visit and coughing - reports she has been in the hospital for rhinovirus and parainfluenza Pt has been coughing with occasional yellow mucus, + sore throat, + yellow nasal drainage, + muscleaches Symptoms started about 9 days ago Denies fevers but states she has felt "hot and cold" overnights She reports she is able to drink well but doesn't have much of an appetite - eats about once a day Feels she cannot get rid of symptoms Taking Coricidin hbp and reports it did help with nasal drainage Background: 63 y/o female with S/P TAVR (transcatheter aortic valve replacement) HTN, goal below 130/80 Coronary artery disease involving platinum coronary artery of platinum heart without angina pectoris Type 2 diabetes mellitus with diabetic peripheral angiopathy without gangrene (HCC) DANYELLE on CPAP LEYVA (nonalcoholic steatohepatitis) Recurrent Clostridium difficile diarrhea Type 2 diabetes mellitus with hemoglobin A1c goal of less than 8.0% (HCC) Dyslipidemia Acquired hypothyroidism Cervical disc disorder with radiculopathy Hypertensive kidney disease with stage 3a chronic kidney disease (HCC) Benign paroxysmal positional vertigo due to bilateral vestibular disorder Persistent insomnia H/O bilateral mastectomy Hoarding disorder Social anxiety disorder S/P drug eluting coronary stent placement Schizoaffective disorder, bipolar type (HCC) Medical marijuana use Obesity, Class I, BMI 30.0-34.9 (see actual BMI) Assessment: Pt alert and oriented x4 VS - BP 132/70 | Pulse 108 | Temp 37.6 C (99.7 F) | Resp 18 | Wt 68.1 kg (150 lb 3.2 oz) | LMP 04/07/2011 | SpO2 99% | BMI 30.32 kg/m | BSA 1.68 m Pain 6/10 - sore throat Noted rhonci of left lobes and faint of RLL No increased LE edema or abdominal distention Denies increased SOB, except with coughing Weights have been stable, down to 150.2 lbs today Recommendation: TT to [facility] [place], Dr. Fish with assessment Resp pathogen panel order - swab obtained and taken to [facility] lab Ordered CXR - to be completed by [facility] lab Ordered Doxy 100mg bid Pt advised she can take mucinex every 12 hrs for congestion/mucus Can continue coricidin On another round of Dificid for C-diff Reports stools are not liquid, more formed Has about 3 bm's a day Denies abdominal pain or cramping Blood sugars continue to be uncontrolled Has highs in 300's and 400's Has not had any low readings Uses Dexcom G7 Plan is to get Omnipod/insulin pump when goes to [facility] appt on 02/20 Physical Exam: BP 132/70 | Pulse 108 | Temp 37.6 C (99.7 F) | Resp 18 | Wt 68.1 kg (150 lb 3.2 oz) | LMP 04/07/2011 | SpO2 99% | BMI 30.32 kg/m | BSA 1.68 m Pain 6 Physical Exam Constitutional: General: She is not in acute distress. Cardiovascular: Rate and Rhythm: Regular rhythm. Tachycardia present. Pulses: Normal pulses. Heart sounds: Normal heart sounds. Pulmonary: Breath sounds: Rhonchi (left lobes, faint of RLL) present. Abdominal: General: Bowel sounds are normal. There is distension (at baseline). Palpations: Abdomen is soft. Skin: General: Skin is warm and dry. Neurological: Mental Status: She is alert and oriented to person, place, and time. Problems/Symptoms: Review of Systems Constitutional: Positive for appetite change (decreased) and fatigue. HENT: Positive for congestion (yellow nasal drainage), sinus pressure and sore throat. Respiratory: Positive for cough (occasional yellow mucus), chest tightness and shortness of breath (with coughing). Cardiovascular: Negative. Gastrointestinal: Positive for abdominal distention (at baseline). Genitourinary: Negative. Musculoskeletal: Positive for myalgias. Skin: Negative. Neurological: Positive for dizziness. Hematological: Negative. Psychiatric/Behavioral: Negative. Medication Reconciliation: (See medication list) Does patient take medications as ordered: Yes Patient Well Being: PHQ2/9: No questionnaires available. No change in living situation No falls [facility] Completed this Visit: Yes. [facility]: Reason Completed: Status post acute event/change in baseline [facility] ([facility]) Fall Risk Assessment Tool Age 65+: Yes (02/13/241099) Diagnosis (3 or more co-existing): Yes (02/13/241099) Prior history of falls within 3 months: Yes (02/13/241099) Incontinence: No (02/13/241099) Visual impairment: No (02/13/241099) Impaired functional mobility: No (02/13/241099) Environmental hazards: Yes (02/13/241099) Poly Pharmacy (4 or more prescriptions - any type): Yes (02/13/241099) Pain affecting level of function: No (02/13/241099) Cognitive impairment: No (02/13/241099) Score - a score of 4 or more is considered at risk for fallin (02/13/241099) [facility]-10 Interventions: Fall education provided, reviewed/provided Fall brochure Advanced Care Planning: POLST. Reinforcement/Education: Educated on home safety: Create a fall [...] exercises that will be right for you. DIABETES: -Blood sugar testing schedule: Twice a [...] and Purspose. Treatment/Plan: Continue meds as prescribed/reviewed [place] [facility] for DM management Check blood sugars QID Fall precautions - use walker Elevate LE as much as possible Daily wts via [facility] Has briefcase sewer Keep all appts as scheduled [facility] for SN and PT Resp pathogen panel order - swab obtained and taken to [facility] lab Ordered CXR - to be completed by Mobile lab Ordered Doxy 100mg bid Pt advised she can take mucinex every 12 hrs for congestion/mucus Can continue coricidin Home Interventions Provided: Labs/Specimen Collection Performed Resp pathogen panel Lab/Imaging Ordered CXR Home Intervention: Other; Eval Consulted PCP/Specialist Reinforced current Plan of Care, including self-management and medication regimen Patient's 'Red Flags': Wt gain of 3 lbs in 24 hrs or 5 lbs in one week Increased SOB Increased LE edema Patient Needs to Remember: Call [facility] at with any new or worsening health concerns or problems, red flag symptoms. Referrals Needed: Other none Follow Up: Is there cellular connectivity/connectivity in the home? Yes Does the patient have internet in the home? Yes Patient encouraged to call the intake phone number for all urgent but not emergent issues. Is the patient new to [facility] at Home within the last 30 days? No, Assess appropriateness for upcoming telehealth visits. Cancel telehealth visits & schedule home visit with care steam distribution supervisor(s)as indicated. Provider is in agreement with Plan of Care: Yes Scheduled to follow up with patient in 24 and 48 hrs. Jaycee Sorto RN 02/13/2024 10:35 AM documented in this encounter Plan of Treatment Upcoming Encounters Date Type Department Care Team (Late st Contact Info) Description 02/14/2024 1:00 PM EDT Scheduled Telephone [facility], [facility] [address] [facility] [place] [address] Coordinator, [facility] [address] [place] [address] 02/15/2024 12:00 PM EDT Scheduled Telephone [facility], [facility] [address] [place] [address] Coordinator, Rashard Rose [facility] [address] [facility] [place] [address] 02/21/2024 9:00 AM EDT Office Visit Pharmacy, [facility] [address] [facility] [place] [address] Pharmacist1, [facility] [address] [facility] [place] [address] 03/04/2024 11:00 AM EDT Home Visit Care Coordination and Integration [address] [place] [address] Angelica Navas, [facility] [employer] Woodworker [address] [place] [address] 03/06/2024 7:45 AM EDT Office Visit Ophthalmology, [facility] [address] [place] [address] Ramsey Burnett, DO [address] [place] [address] 03/25/2024 10:00 AM EDT Home Visit [facility], [facility] [address] [place] [address] Jaycee Sorto, RN [address] [place] [address] 06/03/2024 9:00 AM EDT Telemedicine Psychiatry [facility] [place] [address] [place] [address] Janiec Atwood MD [address] [place] [address] 07/17/2024 9:30 AM EDT Office Visit Cardiology, [facility] [address] [place] [address] Roberto Carlos Muniz, [address] [place] [address] 08/12/2024 9:20 AM EST Office Visit Family Practice [facility] [address] [place] [address] Gregory Rausch MD [address] [place] [address] 11/27/2024 9:40 AM EST Office Visit Nephrology, [facility] [address] [facility] [place] [address] Fidelina Baumann MD [address] [facility] [place] [address] Pending Results Name Type Priority Associated Diagnoses Date /Time RESPIRATORY PATHOGEN PANEL, PCR Lab Routine Acute cough 02/13/2024 12:19 PM EDT Scheduled Orders Name Type Priority Associated Diagnoses Orde r Schedule XR CHEST 2 VIEWS Medical Imaging STAT Acute cough Ordered: 02/13/2024 RESPIRATORY PATHOGEN PANEL, PCR Lab Routine Acute cough Expected: 02/13/2024 (Approximate), Expires: 02/12/2025 Scheduled Procedures Name Priority Associated Diagnoses Date/Ti [...] 10) 12/26/2023 12/25/2023 CKD PHOS USE SMARTSET 12157 06/18/2024 09/2 01/2023, 06/16/2023, 06/15/2023, Additional history exists GFR 07/09/2024 01/08/2024, 09/25, 08/02/2023, Additional history exists HbA1c 08/01/2024 01/30/2024, 08/25, 07/31/2023, Additional history exists Diabetic Eye Exam 09/13/2024 09/13/2023, , 09/13/2023, Additional history exists B-12 09/18/2024 09/18/2023, 08/24, 2020, Additional history exists Albumin/Creatinine Ratio 01/07/2025 024, 03/09/2023, 12/22/2022, Additional history exists CKD HGB USE SMARTSET 85715 01/07/202501/07, 01/08/2024, 10/15/2023, Additional history exists TSH [...] this encounter Medical Devices Implanted Type Area Alliance Manager Device Identifier Shelf Expiration Date Model / Serial / Lot Cath Roselia Single Lumen - [id number] Implanted:Qty : 1 on 03/12/2008 at OR [facility] Left: Chest [employer] *DO NOT USE* 07/25/2012 21-4053-24 / / [id number] Sut Steel 6 M654g - [id number] Implanted:Qty : 1 on 11/01/2010 at OR [facility] N/A: Chest DO NOT USE M654G / / Sut Steel 6 M654g - [id number] Implanted:Qty : 1 on 11/01/2010 at OR [facility] N/A: Chest DO NOT USE M654G / / Valve Tarsha Aortic [id number] - [id number] Implanted:Qty : 1 on 11/01/2010 at OR [facility] N/A: Heart [employer] DANIEL 05/20/2012 2800TFX-25 / / [id number] Mesh Soft 63g96ws - [id number] Implanted:Qty : 1 on 10/10/2019 by Gigi Hendrickson MD at [place] [facility] N/A: Abdomen CR BARD : DAVOL [id number] 05/21/2024 [id number] / / [id number] Lens 22.5 Sn60wf - [id number] - [id number] Implanted:Qty : 1 on 09/15/2020 by Renaldo Cook, Cece Acosta MD at OR [facility] Right: Eye IVA : SURGICAL [id number] 05/13/2025 SN60 WF.225 / [id number] / [id number] Lens 21.5 Sn60wf - [id number] - [id number] Implanted:Qty : 1 on 12/19/2023 by Ramsey Burnett DO at OR [facility] Left: Eye IVA : SURGICAL 12/03/2024 SN60WF.2 15 / [id number] / documented as of this encounter Visit Diagnoses Diagnosis Acute cough- Primary documented in this encounter Advance Directives [...] Healthcare Agent Relationshi p Communication [facility] Child Health Care Repr esentative (appointed verbally by patient or by statute hierarchy) Care Teams Iron Setter Relationship Specialty Start Date End Date Gregory Rausch MD [address] [place] [address] PCP - General Family Medicine 02/12/20 documented as of this encounter
--- OUTSIDE RECORDS SUMMARY | 2024-06-05 14:53 | External Medical Summary | Summary of Care ---
Author Name Unknown Organization [facility] Address [address] [place] [address] Phone [phone] Care Team Providers Care Director Supplier Quality Name Role Phone Gregory Rausch MD Primary Care Provider [phone] Reason for Visit * Reason Onset Date Comments Home Monitoring Alarm 02/08/2024 Encounter Details Date Type Department Care Team (Late st Contact Info) Description 02/08/2024 Home Monitoring Care Coordination [address] [place] [address] Hannah Lopez, [employer] HTN, goal below 130/80* Allergies Active Allergy Reactions Criticality Noted Date Comments Adhesive Tape 07/02/2017 Can tolerate band-aids Glycerin Other (Please comment) 03/12/2008 Topical agents with glycein-burning & itching Lactose 12/09/2014 Dairy - gas Lisinopril Cough 01/21/2010 Monosodium Glutamate Edema Other 03/12/2008 Hands and feet Penicillins Rash 11/14/2007 documented as of this encounter (statuses as of 02/08/2024) Medications Medication Sig Dispensed Refills Start Date End Date Status aspirin enteric coated 81 MG TBECIndications:Aort ic valve disorder Take 1 Tab by mouth daily. 90 Tab 11 09/30/2018 Active AZO Cranberry 250-30 MG Oral Tablet Take 1 Tablet by mouth in the morning. 0 Active BD Glucose 5 GM Oral [...] Capsule by mouth at bedtime. 0 Active Gaviscon 80-14.2 MG Oral Tablet Chewable (Alum Hydroxide-Mag Trisilicate) Take by mouth as needed. 0 Active BD Insulin Syringe 25G X 1" 1 ML (Insulin Syringe-Needle U-100) Use daily with omnipod as directed DX E11.9 100 Each 5 09/20/2023 Active Curity Alcohol Swabs Pad Use as directed as needed 200 Each 5 09/20/2023 Active traZODone HCl 100 MG Oral Tablet (Desyrel) Take 1 Tablet by mouth at bedtime. 0 Active DULoxetine HCl 20 MG Oral Capsule Delayed Release Particles (Cymbalta) Take 1 Capsule by mouth in the morning. 30 Capsule 5 12/12/2023 Active CPAP every night at bedtime. 0 Active One-A-Day Womens 50 Plus Oral Tablet Take 1 Tablet by mouth in the morning. 0 Active prednisoLONE Acetate 1 % Ophthalmic Suspension (Pred Forte) Instill 1 Drop into both eyes in the morning and 1 Drop at noon and 1 Drop in the evening and 1 Drop before bedtime. 5 mL 01/03/2024 Active Diclofenac Sodium 0.1 % Ophthalmic Solution (Voltaren) Instill 1 Drop into the left eye in the morning and 1 Drop at noon and 1 Drop in the evening and 1 Drop before bedtime. 2.5 mL 01/03/2024 Active Probiotic (Lactobacillus) Oral Capsule Take 2 Capsules by mouth in the morning. 0 Active OneTouch Verio In Vitro Strip (Glucose Blood) Use up to 4 times a day E11.9 100 Strip 11 01/22/2024 Active Potassium Chloride Shannon ER 10 MEQ Oral Tablet Extended ReleaseIndications:A cute on chronic heart failure with preserved ejection fraction (HFpEF) ([facility]) Take 1 Tablet by mouth in the morning and 1 Tablet before bedtime. 180 Tablet 3 01/22/2024 Active Tresiba FlexTouch 200 UNIT/ML Subcutaneous Solution Pen-injector (Insulin Degludec)Indications :Type 2 diabetes mellitus with hemoglobin A1c goal of less than 7.0% ([facility]),Type 2 diabetes mellitus with stage 3a chronic kidney disease, with long-term current use of insulin ([facility]) Inject 30 Units under the skin in the morning. 6 mL 2 01/10/2024 Active BD Pen Needle Short U/F 31G X 8 MMIndications:Type 2 diabetes mellitus with hemoglobin A1c goal of less than 7.0% ([facility]),Type 2 diabetes mellitus with stage 3a chronic kidney disease, with long-term current use of insulin ([facility]) Use with insulin 4 times [...] MEDICATIONS 90 Tablet 2 01/10/2024 Active Nystatin 694730 UNIT/GM External Powder (Nystop)Indications: Candidal intertrigo Apply topically to affected area 3 times a day. Apply to affected areas 60 g 1 01/10/2024 Active Aquaphor External Ointment Apply topically to affected area as needed for Dry Skin. Apply to face 420 g 0 01/10/2024 Active Ozempic (2 MG/DOSE) 8 MG/3ML [...] and 1 Tablet before bedtime. 20 Tablet 0 02/04/2024 Active Gabapentin 300 MG Oral Capsule (Neurontin) Take 1 Capsule by mouth in the morning and 1 Capsule at noon and 1 Capsule before bedtime. 90 Capsule 5 02/04/2024 Active Omnipod 5 G6 Intro (Gen 5) Kit Use as directed. Use to delivery insulin via insulin pump 0 02/04/2024 Active Fluticasone Propionate 50 MCG/ACT Nasal Suspension (Flonase)Indications :Dizziness Administer 2 Sprays into each nostril in the morning. 16 g 3 02/07/2024 Active Saccharomyces boulardii 250 MG Oral Capsule (Florastor) Take 1 Capsule by mouth in the morning and 1 Capsule before bedtime. 60 Capsule 0 02/07/2024 Active Dexcom G6 Ice Skater DeviceIndications:Ty pe 2 diabetes mellitus with stage 3a chronic kidney disease, with long-term current use of insulin (HCC) Use as directed. 1 Each 0 02/08/2024 Active Dexcom G6 TransmitterIndicatio ns:Type 2 diabetes mellitus with stage 3a chronic kidney disease, with long-term current use of insulin (HCC) Use as directed. 1 Each 0 02/08/2024 Active documented as of this encounter (statuses as of 02/08/2024) Active Problems Problem Noted Date Diagnosed Date [...] eye 09/28/2020 Coronary artery disease invo lving [place] coronary artery of [place] heart without angina pectoris 12/16/2019 Last Assessment [...] as of this encounter (statuses as of 02/08/2024) Resolved Problems Problem Noted Date Diagnosed Date [...] 12/21/2016 Diabetes mellitus 01/05/2014 12/21/2016 LEYVA RESEARCH OTHER*[id number] 01/05/2014 12/21/2016 Axillary pain 11/03/2013 12/21/2016 Obesity, [...] 12/21/2016 FOLLOWING SURGERY, UNSPECIFI ED ([facility]SO 08/25/2011) 08/26/2011 12/21/2016 ADVANCE DIRECTIVE INFORMATION 04/17/2011 12/21/2016 Overview: Yes, Patient instructed to provide copy of advance directive for provider to review and to be scanned into Electronic Medical Record ADVANCE DIRECTIVE INFORMATION 03/01/2011 12/21/2016 Overview: Yes, Patient instructed to provide copy of advance directive for provider to review and to be scanned into Electronic Medical Record [employer] V710 Clinical Trial*[id number] 12/22/2010 04/14/2011 S/P aortic valve replacement 12/01/2010 08/26/2011 S/P AORTIC VALVE REPLACEMENT - #25 pericardial Cm valve 11/01/2010 06/28/2018 Overview: Aortic valve replacement with #25 pericardial Mc valve, model 2800TFX, serial number [id number] (Dr. Walker) [facility] V710 Clinical Trial*[id number] 10/18/2010 11/21/2010 Type 2 diabetes mellitus wit [...] as of this encounter (statuses as of 02/08/2024) Immunizations Name Administration Dates Next Due COVID-19 mRNA, LNP-s, No Pre serve, 2-Dose Series (Moderna) 10/25/2021,02/16/2021,01/18/2021 HEP A - Hepatitis A (Adult > 18 yrs) 06/07/2018, 12/05/2017 Hepatitis B, 20+ yrs 06/07/2018,01/08/20 18,12/05/2017,06/15,10/27/2013,09/12/2013 Pneumococcal Conjugate Vacci ne, 20-valent ([id number]) 06/22/2023 Pneumococcal Polysaccharide PPV23 (Pneumovax) 01/02/2008 Seasonal [...] Progress Notes * Neeraj Matthew, [facility] - 02/08/2024 11:37 AM EDT [facility] - Hypertension Management Patient Phone Numbers This patient was contacted as part of the [facility] 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 Blood Pressure Goal: 130/80 mmHg Type of Alert: Yellow Current Hypertension Medications: Metoprolol 25mg twice daily Previous antihypertensive use: n/a Experiencing symptoms related to elevated BP: No Systolic Diastolic HR -January 140 79 96 -January 159 100 95 -January 115 69 91 Systolic Diastolic HR Average 138 83 94 Hi 159 100 96 Lo 115 69 91 Range 44 31 5 BP Readings from Last 3 Encounters: 02/04/24 134/68 01/22/24 160/80 01/18/24 116/76 Pulse Readings from Last 3 Encounters: 02/04/24 72 01/22/24 81 01/18/24 90 Recent Labs Units 01/08/24 1229 01/08/24 1222 [...] 11 27* -- 7 ASSESSMENT & PLAN: She was asymptomatic. She had been out shopping and had just gotten home when she did the BP. Patient educated on the following: Reviewed proper [...] journal MEDICATION CHANGES: none Hypertension Medications: Metoprolol 25mg twice daily HEALTH MAINTENANCE INTERVENTIONS: Labs: Ordered & Scheduled: Up to date FOLLOW UP: As needed. Neeraj Romero RPh Clinical Pharmacist - Electrochemist [facility] 02/08/2024, 11:37 AM * Hannah Lopez LPN - 02/08/2024 10:23 AM EDT Jovita Rose [phone] Jovita Rose is currently participating in the [employer] Hypertension Management Program and had areading on 02/07/24 of 140/79. Pt has alerted for an Average BP [...] Care Team (Late st Contact Info) Description 02/08/2024 2:00 PM EDT Telemedicine Pharmacy, [facility] [address] [place] [address] Pharmacist1, [facility] [address] [place] [address] 02/13/2024 10:00 AM EDT Home Visit Adry at [facility] [address] [address] Jaycee Sorto RN [address] [facility] [place] [address] 02/21/2024 9:00 AM EDT Office Visit Pharmacy, [facility] [address] [facility] [place] [address] Pharmacist1, [facility] [address] [place] [address] 03/06/2024 7:45 AM EDT Office Visit Ophthalmology, [facility] [address] [place] [address] Ramsey Burnett, DO [address] [address] 06/03/2024 9:00 AM EDT Telemedicine Psychiatry [facility] [address] [place] [phone] Janice Atwood MD [address] [facility] [place] [address] 07/17/2024 9:30 AM EDT Office Visit Cardiology, [facility] [address] [facility] [place] [address] Roberto Carlos Muniz, [address] [place] [address] 08/12/2024 9:20 AM EST Office Visit Family Practice [facility] [address] [facility] [place] [address] Gregory Rausch MD [address] [facility] [place] [address] 11/27/2024 9:40 AM EST Office Visit Nephrology, [facility] [address] [place] [address] Fidelina Baumann MD [address] [place] [address] Scheduled Procedures Name Priority Associated Diagnoses Date/Ti [...] 10) 12/26/2023 12/25/2023 CKD PHOS USE SMARTSET 41206 06/18/202405/26, 06/16/2023, 06/15/2023, Additional history exists GFR 07/09/2024 01/08/2024, 09/25, 08/02/2023, Additional history exists HbA1c 08/01/2024 01/30/2024, 08/25, 07/31/2023, Additional history exists Diabetic Eye Exam 09/13/2024 09/13/2023, , 09/13/2023, Additional history exists B-12 09/18/2024 09/18/2023, 08/24, 2020, Additional history exists Albumin/Creatinine Ratio 01/07/2025 024, 03/09/2023, 12/22/2022, Additional history exists CKD HGB USE SMARTSET 26043 01/07/202501/07, 01/08/2024, 10/15/2023, Additional history exists TSH [...] this encounter Medical Devices Implanted Type Area Traffic I Manager Device Identifier Shelf Expiration Date Model / Serial / Lot Cath Roselia Single Lumen - [id number] Implanted:Qty : 1 on 03/12/2008 at OR [facility] Left: Chest [facility] *DO NOT USE* 07/25/2012 21-4053-24 / / [id number] Sut Steel 6 M654g - [id number] Implanted:Qty : 1 on 11/01/2010 at OR [facility] N/A: Chest DO NOT USE M654G / / Sut Steel 6 M654g - [id number] Implanted:Qty : 1 on 11/01/2010 at OR [facility] N/A: Chest DO NOT USE M654G / / Valve Tarsha Aortic [id number] - [id number] Implanted:Qty : 1 on 11/01/2010 at OR [facility] N/A: Heart [employer] 05/20/2012 2800TFX-25 / / [id number] Mesh Soft [id number] - [id number] Implanted:Qty : 1 on 10/10/2019 by Gigi Hendrickson MD at [place] [facility] N/A: Abdomen CR BARD : DAVOL [id number] 05/21/2024 [id number] / / [id number] Lens 22.5 Sn60wf - [id number] - [id number] Implanted:Qty : 1 on 09/15/2020 by Cece Roland MD at [facility] Right: Eye IVA : SURGICAL [id number] 05/13/2025 SN60 WF.225 / [id number] / [id number] Lens 21.5 Sn60wf - [id number] - [id number] Implanted:Qty : 1 on 12/19/2023 by Ramsey Burnett DO at OR [facility] Left: Eye IVA : SURGICAL 12/03/2024 SN60WF.2 15 / [id number] / documented as of this encounter Visit Diagnoses Diagnosis HTN, goal below 130/80- Primary Unspecified essential hypertension documented in this encounter Advance Directives Latest Code Status on File Code Status Date Activated Date Inactivated Comments Full Code 12/19/2023 12:28 PM 12/19/2023 7:20 PM Question [...] with: Not Discussed due to patient's condition Full Code 10/10/2019 6:13 PM 10/17/2019 1:58 [...] the patient have Health Care Power of Hepatology Physician? No Full Code 10/10/2019 8:40 AM 10/10/2019 5:53 PM This order reflects the patients wishes and were consensually agreed upon. Healthcare Agents on File Name Relationship Healthcare Agent Relationshi p Communication Gigi Rose Adult Child Health Care Repr esentative (appointed verbally by patient or by statute hierarchy) Care Teams Director Supplier Quality Relationship Specialty Start Date End Date Gregory Rausch MD [address] [place] [address] PCP - General Family Medicine 02/12/20 documented as of this encounter
--- OUTSIDE RECORDS SUMMARY | 2024-06-05 14:53 | External Medical Summary | Summary of Care ---
Author Name Unknown Organization [facility] Address [address] [place] [address] Phone [phone] Care Team Providers Care Kidney Trimmer Name Role Phone Gregory Rausch MD Primary Care Provider [phone] Encounter Details Date Type Department Care Team (Latest Contact Info) Description 02/08/2024 Medication Management [facility] [address], [place] [id number] Neeraj Matthew, [facility] [address] [place] [address] Referred for management of medication therapy* Allergies Active Allergy Reactions Criticality Noted Date [...] OTHER MEDICATIONS 90 Tablet 01/10/2024 Active Nystatin 142389 UNIT/GM External Powder (Nystop)Indications: Candidal intertrigo Apply [...] 60 Capsule 0 02/07/2024 Active Dexcom G6 Corporate Safety Director DeviceIndications:Ty pe 2 diabetes mellitus with stage [...] eye 09/28/2020 Coronary artery disease invo lving [place] coronary artery of [place] heart without angina pectoris 12/16/2019 Last [...] 12/21/2016 Diabetes mellitus 01/05/2014 12/21/2016 LEYVA RESEARCH OTHER*[id number] 01/05/2014 12/21/2016 Axillary pain 11/03/2013 12/21/2016 Obesity, [...] [facility] V710 Clinical Trial*[id number] 12/22/2010 04/14/2011 S/P aortic valve replacement 12/01/2010 08/26/2011 S/P AORTIC VALVE REPLACEMENT - #25 pericardial Mc valve 11/01/2010 06/28/2018 Overview: Aortic valve replacement with #25 pericardial Mc valve, model 2800TFX, serial number [id number] (Dr. Walker) [facility] V710 Clinical Trial*[id number] 10/18/2010 11/21/2010 Type 2 diabetes mellitus wit [...] 06/07/2018,01/08/20 18,12/05/2017,06/15,10/27/2013,09/12/2013 Pneumococcal Conjugate Vacci ne, 20-valent ([id number]) 06/22/2023 Pneumococcal Polysaccharide PPV23 (Pneumovax) 01/02/2008 Seasonal [...] this encounter Progress Notes * Neeraj Matthew, [facility] - 02/08/2024 2:35 PM EDT Jovita Rose is a 63 year old female. Objective: Review of patient's allergies indicates: Allergen Reactions Adhesive Tape Can tolerate band-aids Glycerin Other (Please comment) Topical agents with glycein-burning & itching Lactose Dairy - gas Lisinopril Cough Monosodium Glutamate Edema Other Hands and feet Pcn [Penicillins] Rash Current Outpatient Medications - WARNING: List may be incomplete due to filtering Medication Sig Dispense Refill Dexcom G6 Corporate Safety Director Device Use as directed. 1 Each 0 Dexcom G6 Transmitter Use as directed. 1 Each 0 Fluticasone Propionate 50 MCG/ACT Nasal Suspension (Flonase) Administer 2 Sprays into each nostril in the morning. 16 g 3 Saccharomyces boulardii 250 MG Oral Capsule (Florastor) Take 1 Capsule by mouth in the morning and 1 Capsule before bedtime. 60 Capsule 0 Fidaxomicin 200 MG Oral Tablet (Dificid) Take 1 Tablet by mouth in the morning and 1 Tablet before bedtime. 20 Tablet 0 Gabapentin 300 MG Oral Capsule (Neurontin) [...] BREAKFAST OR OTHER MEDICATIONS 90 Tablet 2 Magnesium Oxide -Mg Supplement 400 (240 Mg) MG Oral Tablet (Mag-Ox) One tablet by mouth daily in the morning 90 Tablet 3 Meclizine HCl 25 MG Oral Tablet (Antivert) Take 2 Tablets by mouth 2 times a day. 360 Tablet 2 Metoprolol Tartrate 25 MG Oral Tablet (Lopressor) Take 1 Tablet by mouth in the morning and 1 Tablet before bedtime. 60 Tablet 5 Nystatin 533672 UNIT/GM External Powder (Nystop) Apply topically to affected area 3 times a day. Apply to affected areas 60 g 1 Tresiba FlexTouch 200 UNIT/ML Subcutaneous Solution Pen-injector (Insulin Degludec) Inject 30 Unitsunder the skin in the morning. 6 mL 2 Ozempic (2 MG/DOSE) 8 MG/3ML Subcutaneous Solution [...] 1 Drop before bedtime. 2.5 mL 1 prednisoLONE Acetate 1 % Ophthalmic Suspension (Pred Forte) Instill 1 Drop into both eyes in the morning and 1 Drop at noon and 1 Drop in the evening and 1 Drop before bedtime. 5 mL 1 One-A-Day Womens 50 Plus Oral Tablet Take 1 Tablet by mouth in the morning. CPAP every night at bedtime. DULoxetine HCl 20 MG Oral Capsule Delayed Release Particles (Cymbalta) Take 1 Capsule by mouth in the morning. 30 Capsule 5 traZODone HCl 100 MG Oral Tablet (Desyrel) Take 1 Tablet by mouth at bedtime. BD Insulin Syringe 25G X 1" 1 ML (Insulin Syringe-Needle U-100) Use daily with omnipod as directed DX E11.9 100 Each 5 Curity Alcohol Swabs Pad Use as directed as needed 200 Each 5 Gaviscon 80-14.2 MG Oral Tablet Chewable (Alum [...] Tab by mouth daily. 90 Tab 11 Immunization History Administered Date(s) Administered COVID-19 mRNA, LNP-s, No Preserve, 2-Dose Series (Moderna) 01/18/2021, 02/16/2021, 10/25/2021 HEP A - Hepatitis A (Adult > 18 yrs) 12/05/2017, 06/07/2018 Hepatitis B, 20+ yrs 09/12/2013, 10/27/2013, 06/15/2014, 12/05/2017, 01/07/2018, 06/07/2018 Pneumococcal Conjugate Vaccine, 20-valent ([id number]) 06/22/2023 Pneumococcal Polysaccharide PPV23 (Pneumovax) 01/02/2008 Seasonal Influenza, PF, 6 M & above, IM , (FluLaval or Fluzone) 07/14/2020, 05/25/2021, 06/22/2023 Seasonal Influenza, QUAD, with Preserv, 6 mons & Above, 0.5 mL, IM 05/02/2018 Seasonal Influenza, Quadrivalent Hd (Fluzone Hd) 06/29/2022 Seasonal Influenza, Quadrivalent, No Preserve, IM 06/24/2017, 05/02/2018, 05/28/2019 Seasonal Influenza, Split, IIV3, With Preserve, Inj 07/18/2008, 09/21/2009, 08/17/2010, 07/17/2011,09/30/2012, 09/12/2013, 06/15/2014, 11/26/2016 TDAP (age 10 and older)(Boostrix) 06/28/2018 TDAP (age 11 and older)(Adacel) 06/09/2008 Zoster Vaccine Recombinant (Shingrix) 07/24/2019, 08/22/2019, 11/06/2019, 11/29/2019 TMR Interventions Incomplete Encounter MTPs No medication therapy recommendations to display Complete Encounter MTPs No medication therapy recommendations to display Assessment & Plan Indication, effectiveness, safety and convenience of her medications were reviewed today. The patient's medical conditions were assessed, evaluated, and deemed meeting goals of drug therapy, with thefollowing exceptions. Additional Notes: N/A Summary Time Spent: 31-45 min Supervising pharmacist who provided the service: SUSAN KUMARI RPh Information Who was the recipient of the CMR service: beneficiary Language Template for the Patient Takeaway: Citizen Of [place] I attest that I have reviewed and updated the patient's conditions, allergies, and medications to the best of my ability. Patient provided medication list gathered by: SUSAN KUMARI RPh, RPh 02/08/2024, 2:35 PM documented in this encounter Miscellaneous Notes * MTM Personal Medication List - Neeraj Matthew RPh - 02/08/2024 2:20 PM EDT Medication How I take it Why I use it Prescriber Ammonium Lactate 12 % External Lotion (Lac-Hydrin) Apply to both feet once daily. DRY FEET Gregory Rausch MD Aquaphor External Ointment Apply topically to affected area as needed for Dry Skin. Apply to face DRY FACIAL SKIN Gregory Rausch MD aspirin enteric coated 81 MG TBEC Take 1 Tab by mouth daily. AORTIC VALVE DISORDER and REPLACEMENT Ramsey Turcios PA-C Atorvastatin Calcium 40 MG Oral Tablet (Lipitor) Take 1 tablet by mouth daily to prevent heart attack/stroke, protect kidney, and cholesterol HIGH CHOLESTEROL Gregory Rausch MD AZO Cranberry 250-30 MG Oral Tablet Take 1 Tablet by mouth in the morning. URINARY TRACT HEALTH History Per Patient BD Glucose 5 GM Oral Tablet Chewable (Glucose) 3 every 15 minutes until glucose is > 100 mg/dL for hypoglycemia E11.9 DIABETES Corwin Silva DO BD Insulin Syringe 25G X 1" 1 ML (Insulin Syringe-Needle U-100) Use daily with omnipod as directed DX E11.9 DIABETES Gregory Rausch MD BD Pen Needle Short U/F 31G X 8 MM Use with insulin 4 times daily DIABETES Cinthia Mcgowan PA-C Clopidogrel Bisulfate 75 MG Oral Tablet (pLAVix) Take 1 Tablet by mouth in the morning. BLOOD THINNER, PREVENT CLOT Gregory Rausch MD CPAP every night at bedtime. TO BREATH PROPERLY AT BEDTIME History Per Patient Curity Alcohol Swabs Pad Use as directed as needed TO CLEAN SKIN BEFORE INSULIN INKJECTIONS Sophie Rausch MD Dexcom G6 Corporate Safety Director Device Use as directed. DIABETES Gregory Rausch MD Dexcom G6 Transmitter Use as directed. DIABETES Gregory Rausch MD Diclofenac Sodium 0.1 % Ophthalmic Solution (Voltaren) Instill 1 Drop into the left eye in the morning and 1 Drop at noon and 1 Drop in the evening and 1 Drop before bedtime. FOR EYES AFTER CATARACT SURGERY Ramsey Burnett DO DULoxetine HCl 20 MG Oral Capsule Delayed Release Particles (Cymbalta) Take 1 Capsule by mouth in the morning. DEPRESSION Josh Almeida MD Fidaxomicin 200 MG Oral Tablet (Dificid) Take 1 Tablet by mouth in the morning and 1 Tablet before bedtime. FOR BOWEL INFECTION Gregory Rausch MD Fluticasone Propionate 50 MCG/ACT Nasal Suspension (Flonase) Administer 2 Sprays into each nostril in the morning. Dizziness HIRA Servin Gabapentin 300 MG Oral Capsule (Neurontin) Take 1 Capsule by mouth in the morning and 1 Capsule at noon and 1 Capsule before bedtime. PAIN Gregory Rausch MD Gaviscon 80-14.2 MG Oral Tablet Chewable (Alum Hydroxide-Mag Trisilicate) Take by mouth as needed. INDIGESTION History Per Patient Levothyroxine Sodium 75 MCG Oral Tablet (Levoxyl) TAKE 1 TAB BY MOUTH DAILY FIRST THING IN AM, AT LEAST 30 MIN PRIOR TO BREAKFAST OR OTHER MEDICATIONS THYROID Gregory Rausch MD Magnesium Oxide -Mg Supplement 400 (240 Mg) MG Oral Tablet (Mag-Ox) One tablet by mouth daily in the morning HIGH BLOOD PRESSURE Feli Teague PA-C Meclizine HCl 25 MG Oral Tablet (Antivert) Take 2 Tablets by mouth 2 times a day. Muscle tension headache Gregory Rausch MD Melatonin 10 MG Oral Capsule Take 1 Capsule by mouth at bedtime. sleep History Per Patient Metoprolol Tartrate 25 MG Oral Tablet (Lopressor) Take 1 Tablet by mouth in the morning and 1 Tablet before bedtime. BLOOD PRESSURE Gregory Rausch MD Nystatin 347245 UNIT/GM External Powder (Nystop) Apply topically to affected area 3 times a day. Apply to affected areas CHAVO INFECTION OF GROIN Gregory Rausch MD Omnipod 5 G6 Intro (Gen 5) Kit Use as directed. Use to delivery insulin via insulin pump DIABETES Gregory Rausch MD One-A-Day Womens 50 Plus Oral Tablet Take 1 Tablet by mouth in the morning. SUPPLEMENT History Per Patient OneTouch Delica Lancets 33G TEST 4 TIMES DAILY DIRECTED, E11.9 DIABETES HIRA Donohue OneTouch Verio In Vitro Strip (Glucose Blood) Use up to 4 times a day E11.9 DIABETES Jose Neumann PA-C OneTouch Verio w/Device Kit Use up to 4 times a day E11.9 DIABETES HIRA Donohue Ozempic (2 MG/DOSE) 8 MG/3ML Subcutaneous Solution Pen-injector (Semaglutide (2 MG/DOSE)) Inject 2 mg under the skin once a week. DIABETES Gregory Rausch MD Potassium Chloride Shannon ER 10 MEQ Oral Tablet Extended Release Take 1 Tablet by mouth in the morning and 1 Tablet before bedtime. SUPPLEMENT Jose Neumann PA-C prednisoLONE Acetate 1 % Ophthalmic Suspension (Pred Forte) Instill 1 Drop into both eyes in the morning and 1 Drop at noon and 1 Drop in the evening and 1 Drop before bedtime. FOR EYES AFTER CATARACT SURGERY Ramsey Burnett DO Probiotic (Lactobacillus) Oral Capsule Take 2 Capsules by mouth in the morning. PROBIOTIC FOR INDIGESTION History Per Patient Saccharomyces boulardii 250 MG Oral Capsule (Florastor) Take 1 Capsule by mouth in the morning and 1 Capsule before bedtime. PROBIOTIC FOR INDIGESTION Gregory Rausch MD traZODone HCl 100 MG Oral Tablet (Desyrel) Take 1 Tablet by mouth at bedtime. DEPRESSION History Per Patient Tresiba FlexTouch 200 UNIT/ML Subcutaneous Solution Pen-injector (Insulin Degludec) Inject 30 Unitsunder the skin in the morning. DIABETES Cinthia Mcgowan PA-C documented in this encounter Plan of Treatment Upcoming Encounters Date Type Department Care Team (Late st Contact Info) Description 02/13/2024 10:00 AM EDT Home Visit [place], [facility] [address] [place] [address] Jaycee Sorto RN [address] [place] [address] 02/21/2024 9:00 AM EDT Office Visit Pharmacy, [facility] [address] [place] [address] Pharmacist1, [facility] [address] [facility] [place] [address] 03/06/2024 7:45 AM EDT Office Visit Ophthalmology, [facility] [address] [place] [address] Ramsey Burnett DO [address] [facility] [place] [address] 06/03/2024 9:00 AM EDT Telemedicine Psychiatry [facility] [address] [place] [phone] Janice Atwood MD [address] [facility] [place] [address] 07/17/2024 9:30 AM EDT Office Visit Cardiology, [facility] [address] [place] [address] Roberto Carlos Muniz, [address] [facility] [place] [address] 08/12/2024 9:20 AM EST Office Visit Family Practice [facility] [address] [facility] [address] Gregory Rausch MD [address] [place] [address] 11/27/2024 9:40 AM EST Office Visit Nephrology, [facility] [address] [place] [address] Fidelina Baumann MD [address] [place] [address] Scheduled Procedures Name Priority Associated Diagnoses Date/Ti [...] 10) 12/26/2023 12/25/2023 CKD PHOS USE SMARTSET 98734 06/18/202405/26, 06/16/2023, 06/15/2023, Additional history exists GFR 07/09/2024 01/08/2024, 09/25, 08/02/2023, Additional history exists HbA1c 08/01/2024 01/30/2024, 08/25, 07/31/2023, Additional history exists Diabetic Eye Exam 09/13/2024 09/13/2023, , 09/13/2023, Additional history exists B-12 09/18/2024 09/18/2023, 08/24, 2020, Additional history exists Albumin/Creatinine Ratio 01/07/2025 024, 03/09/2023, 12/22/2022, Additional history exists CKD HGB USE SMARTSET 62888 01/07/202501/07, 01/08/2024, 10/15/2023, Additional history exists TSH [...] this encounter Medical Devices Implanted Type Area Hog Trader Device Identifier Shelf Expiration Date Model / Serial / Lot Cath Roselia Single Lumen - [id number] Implanted:Qty : 1 on 03/12/2008 at OR [facility] Left: Chest [facility] *DO NOT USE* 07/25/2012 21-4053-24 / / [id number] Sut Steel 6 M654g - [id number] Implanted:Qty : 1 on 11/01/2010 at OR [facility] N/A: Chest DO NOT USE M654G / / Sut Steel 6 M654g - [id number] Implanted:Qty : 1 on 11/01/2010 at OR [facility] N/A: Chest DO NOT USE M654G / / Valve Tarsha Aortic [id number] - [id number] Implanted:Qty : 1 on 11/01/2010 at OR [facility] N/A: Heart [employer] DANIEL 05/20/2012 2800TFX-25 / / [id number] Mesh Soft [id number] - [id number] Implanted:Qty : 1 on 10/10/2019 by Gigi Hendrickson MD at [place] [facility] N/A: Abdomen CR BARD : DAVOL [id number] 05/21/2024 [id number] / / [id number] Lens 22.5 Sn60wf - [id number] - [id number] Implanted:Qty : 1 on 09/15/2020 by Renaldo Cook, Cece Acosta MD at OR [facility] Right: Eye IVA : SURGICAL [id number] 05/13/2025 SN60 WF.225 / [id number] / [id number] Lens 21.5 Sn60wf - [id number] - [id number] Implanted:Qty : 1 on 12/19/2023 by Ramsey Burnett DO at OR [facility] Left: Eye IVA : SURGICAL 12/03/2024 SN60WF.2 15 / [id number] / documented as of this encounter Visit Diagnoses Diagnosis Referred for management of medication therapy- Primary Encounter for long-term (current) use of [...] the patient have Health Care Power of Employee Benefits Insurance Agent? No Full Code 10/10/2019 8:40 AM 10/10/2019 5:53 PM This order reflects the patients wishes and were consensually agreed upon. Healthcare Agents on File Name Relationship Healthcare Agent Relationshi p Communication Gigi Rose Adult Child Health Care Repr esentative (appointed verbally by patient or by statute hierarchy) Care Teams Kidney Trimmer Relationship Specialty Start Date End Date Gregory Rausch MD [address] [place] [id number] PCP - General Family Medicine 02/12/20 documented as of this encounter
--- OUTSIDE RECORDS SUMMARY | 2024-06-05 14:53 | External Medical Summary | Summary of Care ---
Author Name Unknown Organization [facility] Address [address] [place] [address] Phone [phone] Care Team Providers Care Mail Inserter Name Role Phone Gregory Rausch MD Primary Care Provider [phone] Encounter Details Date Type Department Care Team (Latest Contact Info) Description 02/08/2024 Medication Management [facility] [address] [place], [place] [phone] Neeraj Matthew, [facility] [address] [place] [address] Referred for management of medication therapy* Allergies [...] OTHER MEDICATIONS 90 Tablet 01/10/2024 Active Nystatin 058580 UNIT/GM External Powder (Nystop)Indications: Candidal intertrigo Apply [...] 60 Capsule 0 02/07/2024 Active Dexcom G6 Aircraft Designer DeviceIndications:Ty pe 2 diabetes mellitus with stage [...] Coronary artery disease invo lving [place] coronary artery of [place] heart without angina pectoris 12/16/2019 Last Assessment [...] 12/21/2016 Diabetes mellitus 01/05/2014 12/21/2016 LEYVA RESEARCH OTHER*[id number] 01/05/2014 12/21/2016 Axillary pain 11/03/2013 12/21/2016 Obesity, [...] 09/201008/26/2011 12/21/2016 FOLLOWING SURGERY, UNSPECIFI ED ([facility] 08/25/2011) 08/26/2011 12/21/2016 ADVANCE DIRECTIVE INFORMATION 04/17/2011 12/21/2016 Overview: Yes, Patient instructed to provide copy of advance directive for provider to review and to be scanned into Electronic Medical Record ADVANCE DIRECTIVE INFORMATION 03/01/2011 12/21/2016 Overview: Yes, Patient instructed to provide copy of advance directive for provider to review and to be scanned into Electronic Medical Record [facility] V710 Clinical Trial*[id number] 12/22/2010 04/14/2011 S/P aortic valve replacement 12/01/2010 08/26/2011 S/P AORTIC VALVE REPLACEMENT - #25 pericardial Mc valve 11/01/2010 06/28/2018 Overview: Aortic valve replacement with #25 pericardial Mc valve, model 2800TFX, serial number [id number] (Dr. Walker) [facility] V710 Clinical Trial*[id number] 10/18/2010 11/21/2010 Type 2 diabetes mellitus wit [...] 06/07/2018,01/08/20 18,12/05/2017,06/15,10/27/2013,09/12/2013 Pneumococcal Conjugate Vacci ne, 20-valent ([id number]) 06/22/2023 Pneumococcal Polysaccharide PPV23 (Pneumovax) 01/02/2008 Seasonal [...] this encounter Progress Notes * Neeraj Matthew, [facility] - 02/08/2024 2:35 PM EDT [...] filtering Medication Sig Dispense Refill Dexcom G6 Aircraft Designer Device Use as directed. 1 Each 0 [...] Tablet before bedtime. 60 Tablet 5 Nystatin 021351 UNIT/GM External Powder (Nystop) Apply topically to [...] 12/05/2017, 01/07/2018, 06/07/2018 Pneumococcal Conjugate Vaccine, 20-valent ([id number]) 06/22/2023 Pneumococcal Polysaccharide PPV23 (Pneumovax) 01/02/2008 Seasonal [...] beneficiary Language Template for the Patient Takeaway: [place] I attest that I have reviewed and [...] INSULIN INKJECTIONS Sophie Rausch MD Dexcom G6 Aircraft Designer Device Use as directed. DIABETES Gregory Rausch [...] bedtime. BLOOD PRESSURE Gregory Rausch MD Nystatin 609322 UNIT/GM External Powder (Nystop) Apply topically to [...] 10:00 AM EDT Home Visit Adry at [place], [facility] [address] [place] [address] Jaycee Sorto RN [address] [facility] [place] [address] 02/21/2024 9:00 AM EDT Office Visit Pharmacy, [facility] [address] [facility] [place] [address] Pharmacist1, [facility] [address] [place] [address] 03/06/2024 7:45 AM EDT Office Visit Ophthalmology, [facility] [address] [place] [address] Ramsey Burnett DO [address] [facility] [place] [address] 06/03/2024 9:00 AM EDT Telemedicine Psychiatry [place] [facility] [address] [place] [phone] Janice Atwood MD [address] [place] [facility] [place] [address] 07/17/2024 9:30 AM EDT Office Visit Cardiology, [facility] [address] [place] [address] Roberto Carlos Muniz, [address] [facility] [place] [address] 08/12/2024 9:20 AM EST Office Visit Family Practice [facility] [address] [place] [address] Gregory Rausch MD [address] [place] [address] 11/27/2024 9:40 AM EST Office Visit Nephrology, [facility] [address] [facility] [place] [address] Fidelina Baumann MD [address] [place] [address] Scheduled Procedures Name Priority Associated Diagnoses Date/Ti [...] 10) 12/26/2023 12/25/2023 CKD PHOS USE SMARTSET 08526 06/18/202405/26, 06/16/2023, 06/15/2023, Additional history exists GFR 07/09/2024 01/08/2024, 09/25, 08/02/2023, Additional history exists HbA1c 08/01/2024 01/30/2024, 08/25, 07/31/2023, Additional history exists Diabetic Eye Exam 09/13/2024 09/13/2023, , 09/13/2023, Additional history exists B-12 09/18/2024 09/18/2023, 08/24, 2020, Additional history exists Albumin/Creatinine Ratio 01/07/2025 024, 03/09/2023, 12/22/2022, Additional history exists CKD HGB USE SMARTSET 71250 01/07/202501/07, 01/08/2024, 10/15/2023, Additional history exists TSH [...] this encounter Medical Devices Implanted Type Area Executive Legal Secretary Device Identifier Shelf Expiration Date Model / Serial / Lot Cath Roselia Single Lumen - [id number] Implanted:Qty : 1 on 03/12/2008 at OR [facility] Left: Chest [facility] *DO NOT USE* 07/25/2012 21-4053-24 / / [id number] Sut Steel 6 M654g - [id number] Implanted:Qty : 1 on 11/01/2010 at OR [facility] N/A: Chest DO NOT USE M654G / / Sut Steel 6 M654g - [id number] Implanted:Qty : 1 on 11/01/2010 at OR [facility] N/A: Chest DO NOT USE M654G / / Valve Tarsha Aortic [id number] - [id number] Implanted:Qty : 1 on 11/01/2010 at OR [facility] N/A: Heart [employer] DANIEL 05/20/2012 2800TFX-25 / / [id number] Mesh Soft [id number] - [id number] Implanted:Qty : 1 on 10/10/2019 by Gigi Hendrickson [place] [facility]: Abdomen CR BARD : DAVOL [id number] 05/21/2024 [id number] / / [id number] Lens 22.5 Sn60wf - [id number] - [id number] Implanted:Qty : 1 on 09/15/2020 by Renaldo Cook, Cece Acosta MD at [facility] Right: Eye IVA : SURGICAL [id number] 05/13/2025 SN60 WF.225 / [id number] / [id number] Lens 21.5 Sn60wf - [id number] - [id number] Implanted:Qty : 1 on 12/19/2023 by Ramsey Burnett DO at OR [facility] Left: Eye IVA : SURGICAL 12/03/2024 SN60WF.2 15 / [id number] / documented as of this encounter [...] the patient have Health Care Power of Online Marketing Director? No Full Code 10/10/2019 8:40 AM 10/10/2019 5:53 PM This order reflects the patients wishes and were consensually agreed upon. Healthcare Agents on File Name Relationship Healthcare Agent Relationshi p Communication Gigi Rose Adult Child Health Care Repr esentative (appointed verbally by patient or by statute hierarchy) Care Teams Mail Inserter Relationship Specialty Start Date End Date Gregory Rausch MD [address] [place] [address] PCP - General Family Medicine 02/12/20 documented as of this encounter
--- OUTSIDE RECORDS SUMMARY | 2024-06-05 14:53 | External Medical Summary | Summary of Care ---
Author Name Unknown Organization [facility] Address [address] [place] [address] Phone [phone] Care Team Providers Care Staff Occupational Therapist Name Role Phone Gregory Rausch MD Primary Care Provider [phone] Reason for Visit * Reason Onset Date Comments [facility]: Acute 02/12/2024 Encounter Details Date Type Department Care Team (Late st Contact Info) Description 02/12/2024 Telephone [facility], [facility] [address] [place] [address] [facility], Nurse [address] [address] [facility]: Acute Allergies Active Allergy Reactions Criticality Noted Date Comments Adhesive Tape 07/02/2017 Can tolerate band-aids Glycerin Other (Please comment) 03/12/2008 Topical agents with glycein-burning & itching Lactose 12/09/2014 Dairy - gas Lisinopril Cough 01/21/2010 Monosodium Glutamate Edema Other 03/12/2008 Hands and feet Penicillins Rash 11/14/2007 documented as of this encounter (statuses as of 02/12/2024) Medications Medication Sig Dispensed Refills Start Date [...] Capsules by mouth in the morning. Active [employer] WagonTouch Verio In Vitro Strip (Glucose Blood) Use [...] of insulin ([facility]) Inject 30 Units under the [...] MEDICATIONS 90 Tablet 2 01/10/2024 Active Nystatin 347023 UNIT/GM External Powder (Nystop)Indications: Candidal intertrigo Apply [...] bedtime. 60 Capsule 02/07/2024 Active Dexcom G6 Automotive Lot Attendant DeviceIndications:Ty pe 2 diabetes mellitus with stage 3a chronic kidney disease, with long-term current use of insulin (HCC) Use as directed. 1 Each 02/08/2024 Active Dexcom G6 TransmitterIndicatio ns:Type 2 diabetes mellitus with stage 3a chronic kidney disease, with long-term current use of insulin (HCC) Use as directed. 1 Each 02/08/2024 Active documented as of this encounter (statuses as of 02/12/2024) Active Problems Problem Noted Date Diagnosed Date [...] eye 09/28/2020 Coronary artery disease invo lving telida coronary artery of telida heart without angina pectoris 12/16/2019 Last Assessment [...] as of this encounter (statuses as of 02/12/2024) Resolved Problems Problem Noted Date Diagnosed Date [...] 12/21/2016 Diabetes mellitus 01/05/2014 12/21/2016 LEYVA RESEARCH OTHER*[id number] 01/05/2014 12/21/2016 Axillary pain 11/03/2013 12/21/2016 Obesity, [...] to be scanned into Electronic Medical Record [facility] V710 Clinical Trial*[id number] 12/22/2010 04/14/2011 S/P aortic valve replacement 12/01/2010 08/26/2011 S/P AORTIC VALVE REPLACEMENT - #25 pericardial Mc valve 11/01/2010 06/28/2018 Overview: Aortic valve replacement with #25 pericardial Mc valve, model 2800TFX, serial number [id number] (Dr. Walker) [facility] V710 Clinical Trial*[id number] 10/18/2010 11/21/2010 Type 2 diabetes mellitus wit [...] as of this encounter (statuses as of 02/12/2024) Immunizations Name Administration Dates Next Due COVID-19 mRNA, LNP-s, No Pre serve, 2-Dose Series (Moderna) 10/25/2021,02/16/2021,01/18/2021 HEP A - Hepatitis A (Adult > 18 yrs) 06/07/2018, 12/05/2017 Hepatitis B, 20+ yrs 06/07/2018,01/08/20 18,12/05/2017,06/15,10/27/2013,09/12/2013 Pneumococcal Conjugate Vacci ne, 20-valent ([id number]) 06/22/2023 Pneumococcal Polysaccharide PPV23 (Pneumovax) 01/02/2008 Seasonal [...] Telephone Encounter - Ev Rahman RN - 02/12/2024 12:50 PM EDT [facility] rf design engineer Acute Call Date: 02/12/2024 Time: 12:50 PM Name: Jovita Rose : 1960 Caller: Patient HPI: Jovita Rose is a 63 year old female that is calling [facility] to report she continues with a runny nose and cough over 1 week. Pt has no fever, sore throat or wheezing. She is taking Coricidin BP with little relief. Pt reports that nasal discharge was clear until today it is more dark yellow. Pt reports she is drinking Gatorade frequently which is contributing to her BS's being elevated. Pt is medically complex. She was seen by her PCP on 02/04/24 at which time she had no cold sxs. She was treated for C-diff with Dificid , which will finish tomorrow. Pt has a RNCM HV scheduled for tomorrow. Pt has AMC scale but has not recorded a weight since 02/09/24. Unsure if ABX is the treatment of choice for her sxs.-May be allergies combined with cold sxs. Nursing Assessment: Patient's chief complaint for this call: Other, describe Cough and runny nose Pain Denies pain Baseline Assessment Able to performing ADLs at baseline (walking, daily tasks, etc.): Yes Chief Complaint is related to a chronic condition: No Patient prescribed oxygen? Uses CPAP hs Patient has been ordered DME equipment (assistive devices, respiratory equipment, etc.): Yes Describe DME devices: CPAP, dexicon and diabetic supplies Patient is using DME device as directed: Yes Medication Reconciliation: (See medication list) Received flu shot this season: Unknown Taking medication as ordered: Yes Medications ordered/taking to treat reason for call: Yes, PRN medication(s) Coricidin BP as dir Heart failure symptoms: No COPD exacerbation symptoms: No Reinforcement Education: Possible Allergic Rhinitis or lingering cold sxs. Continue Coricidin. Decrease Gatorade intake anmd drink water instread. Monitor BS's daily HV scheduled tomorrow Call back instructions provided to patient. Treatment/Plan: (need to report) Level of call: Non-Acute Recommended treatment plan: Clinical advice given over the phone Routing to Care team for any further recommednations. Ev Rahman RN [facility] Intake Triage Coordinator [phone] documented in this encounter Plan of Treatment Upcoming Encounters Date Type Department Care Team (Late st Contact Info) Description 02/13/2024 10:00 AM EDT Home Visit [facility] [address] [place] [address] Jaycee Sorto RN [address] [place] [address] 02/21/2024 9:00 AM EDT Office Visit Pharmacy, [facility] [place] [address] [facility] [place] [address] Pharmacist1, [facility] [address] [facility] [place] [address] 03/06/2024 7:45 AM EDT Office Visit Ophthalmology, [facility] [address] [facility] [place] [address] Ramsey Burnett, DO [address] [facility] [place] [address] 06/03/2024 9:00 AM EDT Telemedicine Psychiatry [facility] [address] [place] [address] Janice Atwood MD [address], [place] [id number] 07/17/2024 9:30 AM EDT Office Visit Cardiology, [facility] [address] [facility] [place] [address] Roberto Carlos Muniz, DO 132 [facility] [place] [address] 08/12/2024 9:20 AM EST Office Visit Family Practice [facility] [address] [facility] [place] [address] Gregory Rausch MD 132 [facility] [place] [address] 11/27/2024 9:40 AM EST Office Visit Nephrology, [facility] [address] [facility] [place] [address] Fidelina Baumann MD [address] [facility] [place] [address] Scheduled Procedures Name Priority Associated Diagnoses Date/Ti [...] 10) 12/26/2023 12/25/2023 CKD PHOS USE SMARTSET 97128 06/18/202405/26, 06/16/2023, 06/15/2023, Additional history exists GFR 07/09/2024 01/08/2024, 09/25, 08/02/2023, Additional history exists HbA1c 08/01/2024 01/30/2024, 08/25, 07/31/2023, Additional history exists Diabetic Eye Exam 09/13/2024 09/13/2023, , 09/13/2023, Additional history exists B-12 09/18/2024 09/18/2023, 08/24, 2020, Additional history exists Albumin/Creatinine Ratio 01/07/2025 024, 03/09/2023, 12/22/2022, Additional history exists CKD HGB USE SMARTSET 85531 01/07/202501/07, 01/08/2024, 10/15/2023, Additional history exists TSH [...] this encounter Medical Devices Implanted Type Area Customer Service Professional Device Identifier Shelf Expiration Date Model / Serial / Lot Cath Roselia Single Lumen - [id number] Implanted:Qty : 1 on 03/12/2008 at OR [facility] Left: Chest [facility] *DO NOT USE* 07/25/2012 21-4053-24 / / [id number] Sut Steel 6 M654g - [id number] Implanted:Qty : 1 on 11/01/2010 at OR [facility] N/A: Chest DO NOT USE M654G / / Sut Steel 6 M654g - [id number] Implanted:Qty : 1 on 11/01/2010 at OR [facility] N/A: Chest DO NOT USE M654G / / Valve Tarsha Aortic [id number] - [id number] Implanted:Qty : 1 on 11/01/2010 at OR [facility] N/A: Heart MC DxNACIENCES DANIEL 05/20/2012 2800TFX-25 / / [id number] Mesh Soft 13s15ze - [id number] Implanted:Qty : 1 on 10/10/2019 by Gigi Hendrickson MD at OR [facility] N/A: Abdomen CR BARD : DAVOL [id number] 05/21/2024 [id number] / / [id number] Lens 22.5 Sn60wf - [id number] - [id number] Implanted:Qty : 1 on 09/15/2020 by Renaldo Cook, Cece Acosta MD at OR [facility] Right: Eye IVA : SURGICAL [id number] 05/13/2025 SN60 WF.225 / [id number] / [id number] Lens 21.5 Sn60wf - [id number] - [id number] Implanted:Qty : 1 on 12/19/2023 by Ramsey Burnett DO at OR [facility] Left: Eye IVA : SURGICAL 12/03/2024 SN60WF.2 15 / [id number] / documented as of this encounter [...] patient or by statute hierarchy) Care Teams Staff Occupational Therapist Relationship Specialty Start Date End Date Gregory Rausch MD [address] [place] [address] PCP - General Family Medicine 02/12/20 documented as of this encounter
--- OUTSIDE RECORDS SUMMARY | 2024-06-05 14:53 | External Medical Summary | Summary of Care ---
Author Name Unknown Organization [facility] Address [address] [place] [address] Phone [phone] Care Team Providers Care High Frequency Mill Operator Name Role Phone Deon Rausch MD Primary Care Provider [phone] [phone] Reason for Visit * Reason Onset Date Comments Pre Cert/Prior Auth 02/04/2024 Encounter Details Date Type Department Care Team (Late st Contact Info) Description 02/04/2024 Telephone Family Practice [facility] [address] [place] [address] Deon Rausch MD [address] [place] [address] Pre Cert/Prior Auth Allergies Active Allergy Reactions Criticality Noted Date Comments Adhesive Tape 07/02/2017 Can tolerate band-aids Glycerin Other (Please comment) 03/12/2008 Topical agents with glycein-burning & itching Lactose 12/09/2014 Dairy - gas Lisinopril Cough 01/21/2010 Monosodium Glutamate Edema Other 03/12/2008 Hands and feet Penicillins Rash 11/14/2007 documented as of this encounter (statuses as of 02/07/2024) Medications Medication Sig Dispensed Refills Start Date [...] by mouth in the morning. 0 Active GT UrologicalTouch Verio In Vitro Strip (Glucose Blood) Use up to 4 times a day E11.9 100 Strip 11 01/22/2024 Active Potassium Chloride Shannon ER 10 MEQ Oral Tablet Extended ReleaseIndications: Acute on chronic heart failure with preserved ejection fraction (HFpEF) ([facility]) Take 1 Tablet by mouth in the morning and 1 Tablet before bedtime. 180 Tablet 3 01/22/2024 Active Tresiba FlexTouch 200 UNIT/ML Subcutaneous Solution Pen-injector (Insulin Degludec)Indication s:Type 2 diabetes mellitus with hemoglobin A1c goal of less than 7.0% ([facility]),Type 2 diabetes mellitus with stage 3a chronic kidney disease, with long-term current use of insulin ([facility]) Inject 30 Units under the skin in the morning. 6 mL 2 01/10/2024 Active BD Pen Needle Short U/F 31G X 8 MMIndications:Type 2 diabetes mellitus with hemoglobin A1c goal of less than 7.0% ([facility]),Type 2 diabetes mellitus with stage 3a chronic kidney disease, with long-term current use of insulin ([facility]) Use with insulin 4 times [...] MEDICATIONS 90 Tablet 2 01/10/2024 Active Nystatin 788282 UNIT/GM External Powder (Nystop)Indications :Candidal intertrigo Apply [...] insulin via insulin pump 0 02/04/2024 Active Saccharomyces boulardii 250 MG Oral Capsule (Florastor) Take 1 Capsule by mouth in the morning and 1 Capsule before bedtime. 60 Capsule 0 02/07/2024 Active Fluticasone Propionate 50 MCG/ACT Nasal Suspension (Flonase)Indication s:Dizziness Administer 2 Sprays into each nostril in the morning. 16 g 3 01/09/2024 02/06/20 24 Discontinu ed(Refill) documented as of this encounter (statuses as of 02/07/2024) Active Problems Problem Noted Date Diagnosed Date [...] eye 09/28/2020 Coronary artery disease invo lving tunun[place] coronary artery of [place] heart without angina pectoris 12/16/2019 Last Assessment [...] as of this encounter (statuses as of 02/07/2024) Resolved Problems Problem Noted Date Diagnosed Date [...] 12/21/2016 Diabetes mellitus 01/05/2014 12/21/2016 LEYVA RESEARCH OTHER*[id number] 01/05/2014 12/21/2016 Axillary pain 11/03/2013 12/21/2016 Obesity, [...] 09/201008/26/2011 12/21/2016 FOLLOWING SURGERY, UNSPECIFI ED ([facility] 08/25/2011) 08/26/2011 12/21/2016 ADVANCE DIRECTIVE INFORMATION 04/17/2011 12/21/2016 Overview: Yes, Patient instructed to provide copy of advance directive for provider to review and to be scanned into Electronic Medical Record ADVANCE DIRECTIVE INFORMATION 03/01/2011 12/21/2016 Overview: Yes, Patient instructed to provide copy of advance directive for provider to review and to be scanned into Electronic Medical Record [facility] V710 Clinical Trial*[id number] 12/22/2010 04/14/2011 S/P aortic valve replacement 12/01/2010 08/26/2011 S/P AORTIC VALVE REPLACEMENT - #25 pericardial Mc valve 11/01/2010 06/28/2018 Overview: Aortic valve replacement with #25 pericardial Mc valve, model 2800TFX, serial number [id number] (Dr. Walker) [facility] V710 Clinical Trial*[id number] 10/18/2010 11/21/2010 Type 2 diabetes mellitus wit [...] as of this encounter (statuses as of 02/07/2024) Immunizations Name Administration Dates Next Due COVID-19 mRNA, LNP-s, No Pre serve, 2-Dose Series (Moderna) 10/25/2021,02/16/2021,01/18/2021 HEP A - Hepatitis A (Adult > 18 yrs) 06/07/2018, 12/05/2017 Hepatitis B, 20+ yrs 06/07/2018,01/08/20 18,12/05/2017,06/15,10/27/2013,09/12/2013 Pneumococcal Conjugate Vacci ne, 20-valent ([id number]) 06/22/2023 Pneumococcal Polysaccharide PPV23 (Pneumovax) 01/02/2008 Seasonal [...] Addendum Note - Deon Rausch MD - 02/07/2024 12:10 PM EDTAddended by: DEON RAUSCH on: 02/07/2024 12:10 PM Modules accepted: Orders * Telephone Encounter - Deon Rausch MD - 02/07/2024 12:10 PM EDT Probiotic sent * Telephone Encounter - Gayle Duncan LPN - 02/06/2024 6:52 PM EDT Please see pts myg message, asking for probiotic * Telephone Encounter - Karina Douglass LPN - 02/05/2024 8:19 AM EDT Gladys calling from [facility]. Dificid is approved * Telephone Encounter - Jose Briggs RN - 02/04/2024 3:35 PM EDT Completed and signed form along with attached office visit note from today 02/04/2024 faxed to [facility] at [phone] with confirmation. Will await response from insurance. * Telephone Encounter - Jose Briggs RN - 02/04/2024 1:55 PM EDT Received fax from [facility] pharmacy stating that Fidaxomicin 200 MG Oral Tablet requires prior-authorization and that they started it on CMM. Hernandez: [id number] Prior-authorization form partially completed, printed, and placed on Dr. Rausch's desk for completion and signature. documented in this encounter Plan of Treatment Upcoming Encounters Date Type Department Care Team (Late st Contact Info) Description 02/13/2024 10:00 AM EDT Home Visit [facility] at [facility] [address] [place] [address] Jaycee Sorto RN 132 [facility] [place] [address] 02/21/2024 9:00 AM EDT Office Visit Pharmacy, [facility] 200 [facility] [place] [address] Pharmacist1, [facility] [address] [facility] [place] [address] 03/06/2024 7:45 AM EDT Office Visit Ophthalmology, [facility] [address] [place] [address] Ramsey Burnett, DO [address] [facility] [place] [address] 06/03/2024 9:00 AM EDT Telemedicine Psychiatry [place] [address] [place] [phone] Janice Atwood MD [address] [place] [address] 07/17/2024 9:30 AM EDT Office Visit Cardiology, [facility] [address] [facility] [place] [address] Roberto Carlos Muniz, [address] [place] [address] 08/12/2024 9:20 AM EST Office Visit Family Practice [facility] [address] [facility] [place] [address] Deon Rausch MD [address] [place] [address] 11/27/2024 9:40 AM EST Office Visit Nephrology, [facility] [address] [facility] [place] [address] Fidelina Baumann MD [address] [facility] [place] [address] Scheduled Procedures Name Priority Associated Diagnoses Date/Ti [...] 10) 12/26/2023 12/25/2023 CKD PHOS USE SMARTSET 32629 06/18/202405/26, 06/16/2023, 06/15/2023, Additional history exists GFR 07/09/2024 01/08/2024, 09/25, 08/02/2023, Additional history exists HbA1c 08/01/2024 01/30/2024, 08/25, 07/31/2023, Additional history exists Diabetic Eye Exam 09/13/2024 09/13/2023, , 09/13/2023, Additional history exists B-12 09/18/2024 09/18/2023, 08/24, 2020, Additional history exists Albumin/Creatinine Ratio 01/07/2025 024, 03/09/2023, 12/22/2022, Additional history exists CKD HGB USE SMARTSET 71978 01/07/202501/07, 01/08/2024, 10/15/2023, Additional history exists TSH [...] this encounter Medical Devices Implanted Type Area Block Press Operator Device Identifier Shelf Expiration Date Model / Serial / Lot Cath Roselia Single Lumen - [id number] Implanted:Qty : 1 on 03/12/2008 at OR [facility] Left: Chest [facility] *DO NOT USE* 07/25/2012 21-4053-24 / / [id number] Sut Steel 6 M654g - [id number] Implanted:Qty : 1 on 11/01/2010 at OR [facility] N/A: Chest DO NOT USE M654G / / Sut Steel 6 M654g - [id number] Implanted:Qty : 1 on 11/01/2010 at OR [facility] N/A: Chest DO NOT USE M654G / / Valve Tarsha Aortic [id number] - [id number] Implanted:Qty : 1 on 11/01/2010 at OR [facility] N/A: Heart MC DupliaCIS[employer] DANIEL 05/20/2012 2800TFX-25 / / [id number] Mesh Soft 94a23pm - [id number] Implanted:Qty : 1 on 10/10/2019 by Gigi Hendrickson MD at OR [facility] N/A: Abdomen CR BARD : DAVOL [id number] 05/21/2024 [id number] / / [id number] Lens 22.5 Sn60wf - [id number] - [id number] Implanted:Qty : 1 on 09/15/2020 by Renaldo Cook, Cece Acosta MD at OR [facility] Right: Eye IVA : SURGICAL [id number] 05/13/2025 SN60 WF.225 / [id number] / [id number] Lens 21.5 Sn60wf - [id number] - [id number] Implanted:Qty : 1 on 12/19/2023 by Ramsey Burnett DO at OR [facility] Left: Eye IVA : SURGICAL 12/03/2024 SN60WF.2 15 / [id number] / documented as of this encounter [...] the patient have Health Care Power of Patient Biller? No Full Code 10/10/2019 8:40 AM 10/10/2019 5:53 PM This order reflects the patients wishes and were consensually agreed upon. Healthcare Agents on File Name Relationship Healthcare Agent Relationshi p Communication [facility] Child Health Care Repr esentative (appointed verbally by patient or by statute hierarchy) Care Teams High Frequency Mill Operator Relationship Specialty Start Date End Date Deon Rausch MD [address] [place] [address] PCP - General Family Medicine 02/12/20 documented as of this encounter
--- OUTSIDE RECORDS SUMMARY | 2024-06-05 14:53 | External Medical Summary | Summary of Care ---
Author Name Unknown Organization [facility] Address [address] [place] [address] Phone [phone] Care Team Providers Care Electric Drill Operator Name Role Phone Gregory Rausch MD Primary Care Provider [phone] Reason for Visit * Reason Comments Medication Discussion Encounter Details Date Type Department Care Team (Late st Contact Info) Description 02/08/2024 2:00 PM EDT Telemedicine Pharmacy, [facility] [address] [place] [address] Pharmacist1, [facility] [address] [place] [address] Encounter for medication review* Allergies Active Allergy [...] directed as needed 200 Each 09/20/2023 Active traZODone HCl 100 MG Oral [...] OTHER MEDICATIONS 90 Tablet 01/10/2024 Active Nystatin 585608 UNIT/GM External Powder (Nystop)Indications: Candidal intertrigo Apply [...] 60 Capsule 0 02/07/2024 Active Dexcom G6 Solar Manager DeviceIndications:Ty pe 2 diabetes mellitus with stage [...] eye 09/28/2020 Coronary artery disease invo lving [place] coronary artery of [place] heart without angina pectoris 12/16/2019 Last Assessment [...] 12/21/2016 Diabetes mellitus 01/05/2014 12/21/2016 LEYVA RESEARCH OTHER*[id number] 01/05/2014 12/21/2016 Axillary pain 11/03/2013 12/21/2016 Obesity, [...] Medical Record [facility] V710 Clinical Trial*[id number] 12/22/2010 04/14/2011 S/P aortic valve replacement 12/01/2010 08/26/2011 S/P AORTIC VALVE REPLACEMENT - #25 pericardial Mc valve 11/01/2010 06/28/2018 Overview: Aortic valve replacement with #25 pericardial Mc valve, model 2800TFX, serial number [id number] (Dr. Walker) [facility] V710 Clinical Trial*[id number] 10/18/2010 11/21/2010 Type 2 diabetes mellitus wit [...] 06/07/2018,01/08/20 18,12/05/2017,06/15,10/27/2013,09/12/2013 Pneumococcal Conjugate Vacci ne, 20-valent ([id number]) 06/22/2023 Pneumococcal Polysaccharide PPV23 (Pneumovax) 01/02/2008 Seasonal [...] Progress Notes * Neeraj Matthew RPh - 02/08/2024 1:31 PM EDT CMR completed today in Medication Management encounter (02/08/24). Neeraj Romero RPh, [facility] Clinical Pharmacist Medication Therapy Management Clinic 02/08/2024, 2:38 PM documented in this encounter Plan of Treatment Upcoming Encounters Date Type Department Care Team (Late st Contact Info) Description 02/13/2024 10:00 AM EDT Home Visit [facility] [address] [address] Jaycee Sorto, RN [address] [address] 02/21/2024 9:00 AM EDT Office Visit Pharmacy, [place] [address] [facility] [place] [address] Pharmacist1, [facility] [address] [facility] [place] [address] 03/06/2024 7:45 AM EDT Office Visit Ophthalmology, [facility] [address] [place] [address] Ramsey Burnett, DO [address] [place] [address] 06/03/2024 9:00 AM EDT Telemedicine Psychiatry [facility] [address] [place] [address] Janice Atwood MD [address], [place] [id number] 07/17/2024 9:30 AM EDT Office Visit Cardiology, [facility] [address] [place] [address] Roberto Carlos Muniz, DO [address] [facility] [address] 08/12/2024 9:20 AM EST Office Visit Family Practice [facility] [address] [place] [address] Gregory Rausch MD [address] [place] [address] 11/27/2024 9:40 AM EST Office Visit Nephrology, [facility] [address] [place] [address] Fidelina Baumann MD [address] [facility] [place] [address] Scheduled Procedures Name Priority Associated Diagnoses Date/Ti [...] 10) 12/26/2023 12/25/2023 CKD PHOS USE SMARTSET 08205 06/18/202405/26, 06/16/2023, 06/15/2023, Additional history exists GFR 07/09/2024 01/08/2024, 09/25, 08/02/2023, Additional history exists HbA1c 08/01/2024 01/30/2024, 08/25, 07/31/2023, Additional history exists Diabetic Eye Exam 09/13/2024 09/13/2023, , 09/13/2023, Additional history exists B-12 09/18/2024 09/18/2023, 08/24, 2020, Additional history exists Albumin/Creatinine Ratio 01/07/2025 024, 03/09/2023, 12/22/2022, Additional history exists CKD HGB USE SMARTSET 89636 01/07/202501/07, 01/08/2024, 10/15/2023, Additional history exists TSH [...] this encounter Medical Devices Implanted Type Area Matrix Bath Attendant Device Identifier Shelf Expiration Date Model / Serial / Lot Cath Roselia Single Lumen - [id number] Implanted:Qty : 1 on 03/12/2008 at OR [facility] Left: Chest [facility] *DO NOT USE* 07/25/2012 21-4053-24 / / [id number] Sut Steel 6 M654g - [id number] Implanted:Qty : 1 on 11/01/2010 at OR [facility] N/A: Chest DO NOT USE M654G / / Sut Steel 6 M654g - [id number] Implanted:Qty : 1 on 11/01/2010 at OR [facility] N/A: Chest DO NOT USE M654G / / Valve Tarsha Aortic [id number] - [id number] Implanted:Qty : 1 on 11/01/2010 at OR [facility] N/A: Heart [employer] 05/20/2012 2800TFX-25 / / [id number] Mesh Soft 92e85ar - [id number] Implanted:Qty : 1 on 10/10/2019 by Gigi Hendrickson MD at [place] [facility] N/A: Abdomen CR BARD : DAVOL [id number] 05/21/2024 [id number] / / [id number] Lens 22.5 Sn60wf - [id number] - [id number] Implanted:Qty : 1 on 09/15/2020 by Renaldo Cook, Cece Acosta MD at OR [facility] Right: Eye IVA : SURGICAL [id number] 05/13/2025 SN60 WF.225 / [id number] / [id number] Lens 21.5 Sn60wf - [id number] - [id number] Implanted:Qty : 1 on 12/19/2023 by Ramsey Burnett DO at OR [id number] Left: Eye IVA : SURGICAL 12/03/2024 SN60WF.2 15 / [id number] / documented as of this encounter [...] the patient have Health Care Power of Head Buyer Tobacco? No Full Code 10/10/2019 8:40 AM 10/10/2019 5:53 PM This order reflects the patients wishes and were consensually agreed upon. Healthcare Agents on File Name Relationship [facility] Gigi Rose Adult Child Health Care Repr esentative (appointed verbally by patient or by statute hierarchy) Care Teams Electric Drill Operator Relationship Specialty Start Date End Date Gregory Rausch MD [address] [place] [address] PCP - General Family Medicine 02/12/20 documented as of this encounter
--- OUTSIDE RECORDS SUMMARY | 2024-06-05 14:54 | External Medical Summary | Summary of Care ---
Author Name Unknown Organization [facility] Address [address] [place] [address] Phone [phone] Care Team Providers Care Bilingual Sales Assistant Name Role Phone Gregory Rausch MD Primary Care Provider [phone] Reason for Visit * Reason Comments Re-Check 6 month check up Medication Discussion gabapentin Encounter Details Date Type Department Care Team (Late st Contact Info) Description 02/04/2024 10:20 AM EDT Office Visit Family Practice [facility] [address] [facility] [place] [address] Gregory Rausch MD [address] [facility] [place] [address] Type 2 diabetes mellitus with stage 3a chronic kidney disease, with long-term current use of insulin ([facility])*; Type 2 diabetes mellitus with hemoglobin A1c goal of less than 8.0% ([facility]); Type 2 diabetes mellitus with diabetic peripheral angiopathy without gangrene, with long-term current use of insulin ([facility]); Dyslipidemia; Acquired hypothyroidism; DANYELLE on CPAP; S/P TAVR (transcatheter aortic valve replacement); HTN, goal below 130/80; Coronary artery disease involving pamunkey coronary artery of pamunkey heart without angina pectoris; Recurrent Clostridium difficile diarrhea; LEYVA (nonalcoholic steatohepatitis); Hypertensive kidney disease with stage 3a chronic kidney disease ([facility]); Schizoaffective disorder, bipolar type (HCC); Medical marijuana use; History of colon cancer; History of breast cancer; S/P drug eluting coronary stent placement Allergies Active Allergy Reactions Criticality Noted Date Comments Adhesive Tape 07/02/2017 Can tolerate band-aids Glycerin Other (Please comment) 03/12/2008 Topical agents with glycein-burning & itching Lactose 12/09/2014 Dairy - gas Lisinopril Cough 01/21/2010 Monosodium Glutamate Edema Other 03/12/2008 Hands and feet Penicillins Rash 11/14/2007 documented as of this encounter (statuses as of 02/04/2024) Medications Medication Sig Dispensed Refills Start Date [...] 24 Active CPAP every night at bedtime. 0 [...] bedtime. 180 Tablet 3 01/22/20 24 Active Tresiba FlexTouch 200 UNIT/ML Subcutaneous Solution Pen-injector (Insulin Degludec)Indicatio ns:Type 2 diabetes mellitus with hemoglobin A1c goal of less than 7.0% ([facility]),Type 2 diabetes mellitus with stage 3a chronic kidney disease, with long-term current use of insulin ([facility]) Inject 30 Units under the skin in the morning. 6 mL 2 01/10/20 24 Active BD Pen Needle Short U/F 31G X 8 MMIndications:Type 2 diabetes mellitus with hemoglobin A1c goal of less than 7.0% ([facility]),Type 2 diabetes mellitus with stage 3a chronic kidney disease, with long-term current use of insulin ([facility]) Use with insulin 4 times daily 400 Each 3 01/10/20 24 Active Fluticasone Propionate 50 MCG/ACT Nasal Suspension (Flonase)Indicatio ns:Dizziness Administer 2 Sprays into each nostril in the morning. 16 g 3 01/09/20 24 Active Magnesium Oxide -Mg Supplement 400 (240 Mg) MG Oral Tablet (Mag-Ox)Indication s:HTN, goal below 130/80 One tablet by mouth daily in the morning 90 Tablet 3 01/10/20 24 Active Clopidogrel Bisulfate 75 MG Oral Tablet (pLAVix) Take 1 Tablet by mouth in the morning. 90 Tablet 2 01/10/20 24 Active Levothyroxine Sodium 75 MCG Oral Tablet (Levoxyl)Indicatio ns:Hypothyroidism TAKE 1 TAB BY MOUTH DAILY FIRST THING IN AM, AT LEAST 30 MIN PRIOR TO BREAKFAST OR OTHER MEDICATIONS 90 Tablet 2 01/10/20 24 Active Nystatin 201390 UNIT/GM External Powder (Nystop)Indication s:Candidal intertrigo Apply topically to affected area 3 times a day. Apply to affected areas 60 g 1 01/10/20 24 Active Aquaphor External Ointment Apply topically to affected area as needed for Dry Skin. Apply to face 420 g 0 01/10/20 24 Active Ozempic (2 MG/DOSE) 8 [...] 1 Tablet before bedtime. 20 Tablet 0 02/04/20 24 Active Gabapentin 300 MG Oral Capsule (Neurontin) Take 1 Capsule by mouth in the morning and 1 Capsule at noon and 1 Capsule before bedtime. 90 Capsule 5 02/04/20 24 Active Omnipod 5 G6 Intro (Gen 5) Kit Use as directed. Use to delivery insulin via insulin pump 0 02/04/20 24 Active Omnipod 5 G6 Pod (Gen 5) Use as directed. Use 1 pod every 3 days 30 Each 3 01/12/20 23 024 Discontinued Omnipod 5 G6 Intro (Gen 5) Kit Use as directed. Use to delivery insulin via insulin pump 1 Kit 0 01/12/20 23 024 Discontinued Venelex External Ointment Apply topically to affected area 2 times a day. 0 06/29/20 23 024 Discontinued metFORMIN HCl 1000 MG Oral Tablet (Glucophage) Take 1 Tablet by mouth 2 times a day with morning and evening meals. 180 Tablet 3 08/31/20 23 Discontinued Insulin Aspart 100 UNIT/ML Injection Solution (NovoLOG)Indicatio ns:Type 2 diabetes mellitus with hemoglobin A1c goal of less than 7.0% (HCC) Use up to 50 units per day in Omnipod. 5 Each 3 09/11/20 23 024 Discontinued Dexcom G6 TransmitterIndicat ions:Type 2 diabetes mellitus with hemoglobin A1c goal of less than 7.0% (HCC) Use as directed. Use 1 transmitter every 90 days E 11.9 1 Each 3 10/18/19 24 Discontinued Dexcom G6 SensorIndications: Type 2 diabetes mellitus with hemoglobin A1c goal of less than 7.0% (HCC) Use as directed. Use 1 sensor every 10 days E 11.9 9 Each 3 10/18/19 24 Discontinued Gabapentin 100 MG Oral Capsule (Neurontin)Indicat ions:Polyneuropath y associated with underlying disease (HCC) TAKE 1 CAPSULE BY MOUTH EVERY DAY IN THE MORNING , AT NOON, AND BEFORE BEDTIME 90 Capsule 2 01/10/20 24 Discontinued(Di scharged) Fidaxomicin 200 MG Oral Tablet (Dificid) Take 1 Tablet by mouth in the morning and 1 Tablet before bedtime. 20 Tablet 0 01/15/20 24 Discontinued(Re fill) documented as of this encounter (statuses as of 02/04/2024) Active Problems Problem Noted Date Diagnosed Date [...] eye 09/28/2020 Coronary artery disease invo lving pamunkey coronary artery of pamunkey heart without angina pectoris 12/16/2019 Last Assessment [...] as of this encounter (statuses as of 02/04/2024) Resolved Problems Problem Noted Date Diagnosed Date [...] 12/21/2016 Diabetes mellitus 01/05/2014 12/21/2016 LEYVA RESEARCH OTHER*[id number] 01/05/2014 12/21/2016 Axillary pain 11/03/2013 12/21/2016 Obesity, [...] 09/201008/26/2011 12/21/2016 FOLLOWING SURGERY, UNSPECIFI ED ([facility] 08/25/2011) 08/26/2011 12/21/2016 ADVANCE DIRECTIVE INFORMATION 04/17/2011 12/21/2016 Overview: Yes, Patient instructed to provide copy of advance directive for provider to review and to be scanned into Electronic Medical Record ADVANCE DIRECTIVE INFORMATION 03/01/2011 12/21/2016 Overview: Yes, Patient instructed to provide copy of advance directive for provider to review and to be scanned into Electronic Medical Record [facility] V710 Clinical Trial*[id number] 12/22/2010 04/14/2011 S/P aortic valve replacement 12/01/2010 08/26/2011 S/P AORTIC VALVE REPLACEMENT - #25 pericardial Mc valve 11/01/2010 06/28/2018 Overview: Aortic valve replacement with #25 pericardial Mc valve, model 2800TFX, serial number [id number] (Dr. Walker) [employer] V710 Clinical Trial*[id number] 10/18/2010 11/21/2010 Type 2 diabetes mellitus wit [...] as of this encounter (statuses as of 02/04/2024) Immunizations Name Administration Dates Next Due COVID-19 mRNA, LNP-s, No Pre serve, 2-Dose Series (Moderna) 10/25/2021,02/16/2021,01/18/2021 HEP A - Hepatitis A (Adult > 18 yrs) 06/07/2018, 12/05/2017 Hepatitis B, 20+ yrs 06/07/2018,01/08/20 18,12/05/2017,06/15,10/27/2013,09/12/2013 Pneumococcal Conjugate Vacci ne, 20-valent ([id number]) 06/22/2023 Pneumococcal Polysaccharide PPV23 (Pneumovax) 01/02/2008 Seasonal [...] Sign Reading Time Taken Comments Blood Pressure 134/68 02/04/2024 10:10 AM EDT Pulse 72 02/04/2024 10:10 AM EDT Temperature 36.7 C (98 F) 02/04/2024 10: 10 AM EDT Respiratory Rate 16 02/04/2024 10:1 0 AM EDT Oxygen Saturation - - Inhaled Oxygen Concentration - - Weight 70.7 kg (155 lb 12.8 oz) 024 10:10 AM EDT Height - - Body Mass Index 31.45 12/19/2023 12:36 PM EDT documented in this [...] Progress Notes * Gregory Rausch MD - 02/04/2024 11:45 AM EDT SUBJECTIVE: Jovita Rose is a 63 year old female. Chief Complaint Patient presents with Re-Check 6 month check up Medication Discussion gabapentin HPI: This a medically complex but stable 63 year old female accompanied today by her aide here for a routine visit. She sees many specialists and is also wrapped up in the [facility] program. Her biggest issue of late has been recurrent C. Diff diarrhea. She recently finished a 10 day course of dificid which helped, however she reports loose stools again. No abdominal pain or fevers. She complains of worsening peripheral neuropathy. She is currently on gabapentin 100 mg tid for this. She uses an omnipod aswell for diabetes. Patient Active Problem List Diagnosis Code Dyslipidemia E78.5 DANYELLE on CPAP G47.33 Acquired hypothyroidism E03.9 [...] stent placement Z95.5 Schizoaffective disorder, bipolar type ([facility]) F25.0 Medical marijuana use Z79.899 Coronary artery disease involving pamunkey coronary artery of pamunkey heart without angina pectoris I25.10 Cystoid macular edema of right eye H35.351 Type 2 diabetes mellitus with stage 3a chronic kidney disease, with long-term current use of insulin ([facility]) E11.22, N18.31, Z79.4 Type 2 diabetes mellitus with hemoglobin A1c goal of less than 8.0% ([facility]) E11.9 Type 2 diabetes mellitus with diabetic peripheral angiopathy without gangrene ([facility]) E11.51 Obesity, Class I, BMI 30.0-34.9 (see actual BMI) E66.9 Thrombocytopenia ([facility]) D69.6 Hypertensive kidney disease with stage 3a chronic kidney disease ([facility]) I12.9, N18.31 Recurrent Clostridium difficile diarrhea A04.71 Current Outpatient Medications Medication Sig Dispense Refill [...] a day E11.9 1 Kit 0 OneTouch DelGreen & Grow Lancets 33G TEST 4 TIMES DAILY DIRECTED, E11.9 400 Each 3 Melatonin 10 MG Oral Capsule Take 1 Capsule by mouth at bedtime. Gaviscon 80-14.2 MG Oral Tablet Chewable (Alum Hydroxide-Mag Trisilicate) Take by mouth as needed. BD Insulin Syringe 25G X 1" 1 ML (Insulin Syringe-Needle U-100) Use daily with omnipod as directed DX E11.9 100 Each 5 Curity Alcohol Swabs Pad Use as directed as needed 200 Each 5 traZODone HCl 100 MG Oral Tablet (Desyrel) Take 1 Tablet by mouth at bedtime. DULoxetine HCl 20 MG Oral Capsule Delayed Release Particles (Cymbalta) Take 1 Capsule by mouth in the morning. 30 Capsule 5 CPAP every night at bedtime. One-A-Day Womens 50 Plus Oral Tablet Take 1 Tablet by mouth in the morning. prednisoLONE Acetate 1 % Ophthalmic Suspension (Pred Forte) Instill 1 Drop into both eyes in the morning and 1 Drop at noon and 1 Drop in the evening and 1 Drop before bedtime. 5 mL 1 Diclofenac Sodium 0.1 % Ophthalmic Solution (Voltaren) Instill 1 Drop into the left eye in the morning and 1 Drop at noon and 1 Drop in the evening and 1 Drop before bedtime. 2.5 mL 1 Probiotic (Lactobacillus) Oral Capsule Take 2 Capsules by mouth in the morning. WorkanaTouch Verio In Vitro Strip (Glucose Blood) Use up to 4 times a day E11.9 100 Strip 11 Potassium Chloride Shannon ER 10 MEQ Oral Tablet Extended Release Take 1 Tablet by mouth in the morning and 1 Tablet before bedtime. 180 Tablet 3 Tresiba FlexTouch 200 UNIT/ML Subcutaneous Solution Pen-injector (Insulin Degludec) Inject 30 Unitsunder the skin in the morning. 6 mL 2 BD Pen Needle Short U/F 31G X 8 MM Use with insulin 4 times daily 400 Each 3 Fluticasone Propionate 50 MCG/ACT Nasal Suspension (Flonase) Administer 2 Sprays into each nostril in the morning. 16 g 3 Magnesium Oxide -Mg Supplement 400 (240 Mg) MG Oral Tablet (Mag-Ox) One tablet by mouth daily in the morning 90 Tablet 3 Clopidogrel Bisulfate 75 MG Oral Tablet (pLAVix) Take 1 Tablet by mouth in the morning. 90 Tablet 2 Levothyroxine Sodium 75 MCG Oral Tablet (Levoxyl) TAKE 1 TAB BY MOUTH DAILY FIRST THING IN AM, AT LEAST 30 MIN PRIOR TO BREAKFAST OR OTHER MEDICATIONS 90 Tablet 2 Nystatin 003856 UNIT/GM External Powder (Nystop) Apply topically to [...] 1 Tablet before bedtime. 60 Tablet 5 Fidaxomicin 200 MG Oral Tablet (Dificid) Take 1 Tablet by mouth in the morning and 1 Tablet before bedtime. 20 Tablet 0 Gabapentin 300 MG Oral Capsule (Neurontin) Take 1 Capsule by mouth in the morning and 1 Capsule at noon and 1 Capsule before bedtime. 90 Capsule 5 No current facility-administered medications for this visit. Allergy: Review of patient's allergies indicates: Allergen Reactions Adhesive Tape Can tolerate band-aids Glycerin Other (Please comment) Topical agents with glycein-burning & itching Lactose Dairy - gas Lisinopril Cough Monosodium Glutamate Edema Other Hands and feet Pcn [Penicillins] Rash OBJECTIVE: BP 134/68 (BP Site: Left Arm, BP Position: Sitting, BP Cuff Size: Regular) | Pulse 72 | Temp 36.7 C (98 F) (Tympanic) | Resp 16 | Wt 70.7 kg (155 lb 12.8 oz) | LMP 04/07/2011 | BMI 31.45 kg/m |BSA 1.72 m Gen: aao x 3, nad, uses walker for ambulation Lungs: ctab Heart: soft blowing systolic murmur Abdomen: soft, nt Ext: no c/c/e Skin: no worrisome lesions or rashes ASSESSMENT AND PLAN: (E11.22, N18.31, Z79.4) Type 2 diabetes mellitus with stage 3a chronic kidney disease, with long-term current use of insulin (HCC) (primary encounter diagnosis) Plan: continue meds and MTM follow up (E11.9) Type 2 diabetes mellitus with hemoglobin A1c goal of less than 8.0% (HCC) Plan: see above (E11.51, Z79.4) Type 2 diabetes mellitus with diabetic peripheral angiopathy without gangrene, withlong-term current use of insulin (HCC) Plan: see above (E78.5) Dyslipidemia Plan: stable (E03.9) Acquired hypothyroidism Plan: euthyroid (G47.33) DANYELLE on CPAP Plan: stable (Z95.2) S/P TAVR (transcatheter aortic valve replacement) Plan: noted/stable (I10) HTN, goal below 130/80 Plan: @ goal (I25.10) Coronary artery disease involving pamunkey coronary artery of pamunkey heart without angina pectoris Plan: continue medical mgmt (A04.71) Recurrent Clostridium difficile diarrhea Plan: Fidaxomicin 200 MG Oral Tablet (Dificid) (K75.81) LEYVA (nonalcoholic steatohepatitis) Plan: stable (I12.9, N18.31) Hypertensive kidney disease with stage 3a chronic kidney disease (HCC) Plan: stable (F25.0) Schizoaffective disorder, bipolar type (HCC) Plan: stable (Z79.899) Medical marijuana use Plan: noted (Z85.038) History of colon cancer Plan: noted (Z85.3) History of breast cancer Plan: noted (Z95.5) S/P drug eluting coronary stent placement Plan: continue Follow up in 6 months(s). No other complaints were offered at this time. Gregory Rausch MD documented in this encounter Nursing Notes * Jose Briggs RN - 02/04/2024 10:12 AM EDT Chief Complaint Patient presents with Re-Check 6 month check up Medication Discussion gabapentin documented in this encounter Plan of Treatment Upcoming Encounters Date Type Department Care Team (Late st Contact Info) Description 02/13/2024 10:00 AM EDT Home Visit [facility], [facility] [address] [place] [address] Jyacee Sorto, RN [address] [facility] [place] [address] 02/21/2024 9:00 AM EDT Office Visit Pharmacy, [facility] [address] [facility] [place] [address] Pharmacist1, [facility] [address] [facility] [place] [address] 03/06/2024 7:45 AM EDT Office Visit Ophthalmology, [facility] [address] [facility] [place] [address] Ramsey Burnett, DO [address] [place] [address] 06/03/2024 9:00 AM EDT Telemedicine Psychiatry [facility] [place] [address] [place] [id number] Janice Atwood MD [address] [place] [address] 07/17/2024 9:30 AM EDT Office Visit Cardiology, [facility] [address] [place] [address] Roberto Carlos Muniz, [address] [facility] [place] [address] 08/12/2024 9:20 AM EST Office Visit Family Practice [facility] [address] [place] [address] Gregory Rausch MD [address] [place] [address] 11/27/2024 9:40 AM EST Office Visit Nephrology, [facility] [address] [facility] [place] [address] Fidelina Baumann MD [address] [facility] [place] [address] Scheduled Procedures Name Priority Associated Diagnoses Date/Ti [...] 10) 12/26/2023 12/25/2023 CKD PHOS USE SMARTSET 50078 06/18/202405/26, 06/16/2023, 06/15/2023, Additional history exists GFR 07/09/2024 01/08/2024, 09/25, 08/02/2023, Additional history exists HbA1c 08/01/2024 01/30/2024, 08/25, 07/31/2023, Additional history exists Diabetic Eye Exam 09/13/2024 09/13/2023, , 09/13/2023, Additional history exists B-12 09/18/2024 09/18/2023, 08/24, 2020, Additional history exists Albumin/Creatinine Ratio 01/07/2025 024, 03/09/2023, 12/22/2022, Additional history exists CKD HGB USE SMARTSET 68625 01/07/202501/07, 01/08/2024, 10/15/2023, Additional history exists TSH [...] this encounter Medical Devices Implanted Type Area Pallet Assembler Device Identifier Shelf Expiration Date Model / Serial / Lot Cath Roselia Single Lumen - [id number] Implanted:Qty : 1 on 03/12/2008 at OR [facility] Left: Chest [facility] *DO NOT USE* 07/25/2012 21-4053-24 / / [id number] Sut Steel 6 M654g - [id number] Implanted:Qty : 1 on 11/01/2010 at OR [facility] N/A: Chest DO NOT USE M654G / / Sut Steel 6 M654g - [id number] Implanted:Qty : 1 on 11/01/2010 at OR [facility] N/A: Chest DO NOT USE M654G / / Valve Tarsha Aortic [id number] - [id number] Implanted:Qty : 1 on 11/01/2010 at OR [facility] N/A: Heart [employer] 05/20/2012 [id number]-[id number] / / [id number] Mesh Soft [id number] - [id number] Implanted:Qty : 1 on 10/10/2019 by Gigi Hendrickson MD at [place] [facility] N/A: Abdomen CR BARD : DAVOL [id number] 05/21/2024 [id number] / / [id number] Lens 22.5 Sn60wf - [id number] - [id number] Implanted:Qty : 1 on 09/15/2020 by Cece Roland MD at OR [facility] Right: Eye IVA : SURGICAL [id number] 05/13/2025 SN60 WF.225 / [id number] / [id number] Lens 21.5 Sn60wf - [id number] - [id number] Implanted:Qty : 1 on 12/19/2023 by Ramsey Burnett DO at OR [facility] Left: Eye IVA : SURGICAL 12/03/2024 SN60WF.2 15 / [id number] / documented as of this encounter Visit Diagnoses Diagnosis Type 2 diabetes mellitus with stage 3a chronic kidney disease, with long-term current use of insulin ([facility])- Primary Type 2 diabetes mellitus with hemoglobin A1c goal of less than 8.0% ([facility]) Type 2 diabetes mellitus with diabetic peripheral angiopathy without gangrene, with long-term current use of insulin ([facility]) Dyslipidemia Other and unspecified hyperlipidemia Acquired hypothyroidism Unspecified hypothyroidism DANYELLE on CPAP Obstructive sleep apnea (adult) (pediatric) S/P TAVR (transcatheter aortic valve replacement) Heart valve replaced by other means HTN, goal below 130/80 Unspecified essential hypertension Coronary artery disease involving pamunkey coronary artery of pamunkey heart without angina pectoris Recurrent Clostridium difficile diarrhea Intestinal infection due to clostridium difficile LEYVA (nonalcoholic steatohepatitis) Other chronic nonalcoholic liver disease Hypertensive kidney disease with stage 3a chronic kidney disease (HCC) Schizoaffective disorder, bipolar type (HCC) Schizoaffective disorder, unspecified condition Medical marijuana use Encounter for long-term (current) use of other medications History of colon cancer Personal history of malignant neoplasm of large intestine History of breast cancer Personal history of malignant neoplasm of breast S/P drug eluting coronary stent placement Postsurgical percutaneous transluminal coronary angioplasty status documented in this encounter Advance Directives Latest [...] the patient have Health Care Power of Material Hauler? No Full Code 10/10/2019 8:40 AM 10/10/2019 5:53 PM This order reflects the patients wishes and were consensually agreed upon. Healthcare Agents on File Name Relationship Healthcare Agent Relationshi p Communication [facility] Child Health Care Repr esentative (appointed verbally by patient or by statute hierarchy) Care Teams Bilingual Sales Assistant Relationship Specialty Start Date End Date Gregory Rausch MD [address] [place] [address] PCP - General Family Medicine 02/12/20 documented as of this encounter
--- OUTSIDE RECORDS SUMMARY | 2024-06-05 14:54 | External Medical Summary | Summary of Care ---
Author Name Unknown Organization [facility] Address [address] [place] [address] Phone [phone] Care Team Providers Care Engine Assembler Name Role Phone Gregory Rausch MD Primary Care Provider [phone] Reason for Visit * Reason Onset Date Comments Pre Cert/Prior Auth 02/04/2024 Encounter Details Date Type Department Care Team (Late st Contact Info) Description 02/04/2024 Telephone Family Practice [facility] [address] [place] [address] Gregory Rausch MD [address] [place] [...] as of this encounter (statuses as of 02/06/2024) Medications Medication Sig Dispensed Refills Start Date [...] by mouth in the morning. 0 Active appirisTouch Verio In Vitro Strip (Glucose Blood) Use [...] times daily 400 Each 3 01/10/2024 Active Fluticasone Propionate 50 MCG/ACT Nasal Suspension (Flonase)Indications :Dizziness Administer 2 Sprays into each nostril in the morning. 16 g 3 01/09/2024 Active Magnesium Oxide -Mg Supplement 400 (240 [...] MEDICATIONS 90 Tablet 2 01/10/2024 Active Nystatin 174396 UNIT/GM External Powder (Nystop)Indications: Candidal intertrigo Apply [...] insulin via insulin pump 0 02/04/2024 Active documented as of this encounter (statuses as of 02/06/2024) Active Problems Problem Noted Date Diagnosed Date [...] eye 09/28/2020 Coronary artery disease invo lving [place] coronary artery of [place] heart without angina pectoris 12/16/2019 Last Assessment [...] as of this encounter (statuses as of 02/06/2024) Resolved Problems Problem Noted Date Diagnosed Date [...] 12/21/2016 Diabetes mellitus 01/05/2014 12/21/2016 LEYVA RESEARCH OTHER*[id number] 01/05/2014 12/21/2016 Axillary pain 11/03/2013 12/21/2016 Obesity, [...] 09/201008/26/2011 12/21/2016 FOLLOWING SURGERY, UNSPECIFI ED ([facility] 08/25/2011) 08/26/2011 12/21/2016 ADVANCE DIRECTIVE INFORMATION 04/17/2011 12/21/2016 Overview: Yes, Patient instructed to provide copy of advance directive for provider to review and to be scanned into Electronic Medical Record ADVANCE DIRECTIVE INFORMATION 03/01/2011 12/21/2016 Overview: Yes, Patient instructed to provide copy of advance directive for provider to review and to be scanned into Electronic Medical Record [facility] V710 Clinical Trial*[id number] 12/22/2010 04/14/2011 S/P aortic valve replacement 12/01/2010 08/26/2011 S/P AORTIC VALVE REPLACEMENT - #25 pericardial Mc valve 11/01/2010 06/28/2018 Overview: Aortic valve replacement with #25 pericardial Mc valve, model 2800TFX, serial number [id number] (Dr. Walker) [facility] V710 Clinical Trial*[id number] 10/18/2010 11/21/2010 Type 2 diabetes mellitus wit [...] as of this encounter (statuses as of 02/06/2024) Immunizations Name Administration Dates Next Due COVID-19 mRNA, LNP-s, No Pre serve, 2-Dose Series (Moderna) 10/25/2021,02/16/2021,01/18/2021 HEP A - Hepatitis A (Adult > 18 yrs) 06/07/2018, 12/05/2017 Hepatitis B, 20+ yrs 06/07/2018,01/08/20 18,12/05/2017,06/15,10/27/2013,09/12/2013 Pneumococcal Conjugate Vacci ne, 20-valent ([id number]) 06/22/2023 Pneumococcal Polysaccharide PPV23 (Pneumovax) 01/02/2008 Seasonal [...] encounter Miscellaneous Notes * Telephone Encounter - Gayle Duncan LPN - 02/06/2024 6:52 PM EDT Please see pts myg message, asking for probiotic * Telephone Encounter - Karina Douglass LPN - 02/05/2024 8:19 AM EDT Gladys calling from [facility]. Dificid is approved * Telephone Encounter - Jose Briggs RN - 02/04/2024 3:35 PM EDT Completed and signed form along with attached office visit note from today 02/04/2024 faxed to [facility] at [phone] with confirmation. Will await response from insurance. * Telephone Encounter - Jose Briggs RN - 02/04/2024 1:55 PM EDT Received fax from [facility] pharmacy stating that Fidaxomicin 200 MG Oral Tablet requires prior-authorization and that they started it on CMM. Hernandez: [id number] Prior-authorization form partially completed, printed, and placed on Dr. Rausch's desk for completion and signature. documented in this encounter Plan of Treatment Upcoming Encounters Date Type Department Care Team (Late st Contact Info) Description 02/13/2024 10:00 AM EDT Home Visit Ad[place] at [place], [facility] [address] [facility] [place] [address] Jaycee Sorto RN [address] [facility] [place] [address] 02/21/2024 9:00 AM EDT Office Visit Pharmacy, [facility] [address] [facility] [place] [address] Pharmacist1, [facility] [address] [facility] [place] [address] 03/06/2024 7:45 AM EDT Office Visit Ophthalmology, [facility] [address] [facility] [address] [place] [address] Ramsey Burnett, DO [address] [place] [address] 06/03/2024 9:00 AM EDT Telemedicine Psychiatry [place] [address] [place] [id number] Janice Atwood MD [address] [place] [address] 07/17/2024 9:30 AM EDT Office Visit Cardiology, [facility] [address] [place] [address] Roberto Carlos Muniz DO [address] [facility] [place] [address] 08/12/2024 9:20 AM EST Office Visit Family Practice [facility] [address] [place] [address] Gregory Rausch MD [address] [place] [address] 11/27/2024 9:40 AM EST Office Visit Nephrology, [facility] [address] [place] [address] Fidelina Baumann MD [address] [facility] [place] [address] Scheduled Procedures Name Priority Associated Diagnoses Date/Ti [...] 10) 12/26/2023 12/25/2023 CKD PHOS USE SMARTSET 60989 06/18/202405/26, 06/16/2023, 06/15/2023, Additional history exists GFR 07/09/2024 01/08/2024, 09/25, 08/02/2023, Additional history exists HbA1c 08/01/2024 01/30/2024, 08/25, 07/31/2023, Additional history exists Diabetic Eye Exam 09/13/2024 09/13/2023, , 09/13/2023, Additional history exists B-12 09/18/2024 09/18/2023, 08/24, 2020, Additional history exists Albumin/Creatinine Ratio 01/07/2025 024, 03/09/2023, 12/22/2022, Additional history exists CKD HGB USE SMARTSET 30700 01/07/202501/07, 01/08/2024, 10/15/2023, Additional history exists TSH [...] this encounter Medical Devices Implanted Type Area Used Car Lot Porter Device Identifier Shelf Expiration Date Model / Serial / Lot Cath Roselia Single Lumen - [id number] Implanted:Qty : 1 on 03/12/2008 at OR [facility] Left: Chest [facility] *DO NOT USE* 07/25/2012 21-4053-24 / / [id number] Sut Steel 6 M654g - [id number] Implanted:Qty : 1 on 11/01/2010 at OR [facility] N/A: Chest DO NOT USE M654G / / Sut Steel 6 M654g - [id number] Implanted:Qty : 1 on 11/01/2010 at OR [facility] N/A: Chest DO NOT USE M654G / / Valve Tarsha Aortic [id number] - [id number] Implanted:Qty : 1 on 11/01/2010 at OR [facility] N/A: Heart [employer] 05/20/2012 2800TFX-25 / / [id number] Mesh Soft [id number] - [id number] Implanted:Qty : 1 on 10/10/2019 by Gigi Hendrickson MD [place] [facility] N/A: Abdomen CR BARD : DAVOL [id number] 05/21/2024 [id number] / / [id number] Lens 22.5 Sn60wf - [id number] - [id number] Implanted:Qty : 1 on 09/15/2020 by Renaldo Cook, Cece Acosta MD at OR [facility] Right: Eye IVA : SURGICAL [id number] 05/13/2025 SN60 WF.225 / [id number] / [id number] Lens 21.5 Sn60wf - [id number] - [id number] Implanted:Qty : 1 on 12/19/2023 by Ramsey Burnett DO at OR [facility] Left: Eye IVA : SURGICAL 12/03/2024 SN60WF.2 15 / [id number] / documented as of this encounter [...] patient have Health Care Power of Manager Steel? No Full Code 10/10/2019 8:40 AM 10/10/2019 5:53 PM This order reflects the patients wishes and were consensually agreed upon. Healthcare Agents on File Name Relationship Healthcare Agent Relationshi p Communication Gigi Rose Adult Child Health Care Repr esentative (appointed verbally by patient or by statute hierarchy) Care Teams Engine Assembler Relationship Specialty Start Date End Date Gregory Rausch MD [address] [place] [address] PCP - General Family Medicine 02/12/20 documented as of this encounter
--- OUTSIDE RECORDS SUMMARY | 2024-06-05 14:54 | External Medical Summary | Summary of Care ---
Author Name Unknown Organization [facility] Address [address] [place] [address] Phone [phone] Care Team Providers Care Center Rep Name Role Phone Gregory Rausch MD Primary Care Provider [phone] Reason for Visit * Reason Onset Date Comments Hospital Follow-Up 11/02/2023 Encounter Details Date Type Department Care Team (Late st Contact Info) Description 11/02/2023 Telephone General Internal Medicine [facility] [address] [place] [address] Gregory Rausch MD [address] [place] [address] Hospital Follow-Up Allergies Active Allergy Reactions Criticality Noted Date Comments Adhesive Tape 07/02/2017 Can tolerate band-aids Glycerin Other (Please comment) 03/12/2008 Topical agents with glycein-burning & itching Lactose 12/09/2014 Dairy - gas Lisinopril Cough 01/21/2010 Monosodium Glutamate Edema Other 03/12/2008 Hands and feet Penicillins Rash 11/14/2007 documented as of this encounter (statuses as of 02/01/2024) Medications Medication Sig Dispensed Refills Start Date [...] hypoglycemia E11.9 100 Tab 3 07/06/2021 Active LegalFácilTouch Verio w/Device Kit Use up to 4 times a day E11.9 1 Kit 0 02/10/2022 Active OneTouch Delica Lancets 33G TEST 4 TIMES DAILY DIRECTED, E11.9 400 Each 3 02/10/2022 Active Melatonin 10 MG Oral CapsuleIndications :sleep Take 1 Capsule by mouth at bedtime. 0 Active Omnipod 5 G6 Pod (Gen 5) Use as directed. Use 1 pod every 3 days 30 Each 3 01/11/2023 Active Additional Information Patient not taking.Reported on 01/08/2024 Omnipod 5 G6 Intro (Gen 5) Kit Use as directed. Use to delivery insulin via insulin pump 1 Kit 0 01/11/2023 Active Additional Information Patient not taking.Reported on 01/08/2024 Venelex External Ointment Apply topically to affected area 2 times a day. 0 06/29/2023 Active Gaviscon 80-14.2 MG Oral Tablet Chewable (Alum Hydroxide-Mag Trisilicate) Take by mouth as needed. 0 Active metFORMIN HCl 1000 MG Oral Tablet (Glucophage) Take 1 Tablet by mouth 2 times a day with morning and evening meals. 180 Tablet 3 08/31/2023 Active Additional Information Patient not taking.Reported on 12/03/2023 Insulin Aspart 100 UNIT/ML Injection Solution (NovoLOG)Indicatio ns:Type 2 diabetes mellitus with hemoglobin A1c goal of less than 7.0% (HCC) Use up to 50 units per day in Omnipod. 5 Each 3 09/11/2023 Active Additional Information Patient not taking.Reported on 01/08/2024 BD Insulin Syringe 25G X 1" 1 ML (Insulin Syringe-Needle U-100) Use daily with omnipod as directed DX E11.9 100 Each 5 09/20/2023 Active Curity Alcohol Swabs Pad Use as directed as needed 200 Each 5 09/20/2023 Active traZODone HCl 100 MG Oral Tablet (Desyrel) Take 1 Tablet by mouth at bedtime. 0 Active Dexcom G6 TransmitterIndicat ions:Type 2 diabetes mellitus with hemoglobin A1c goal of less than 7.0% ([facility]) Use as directed. Use 1 transmitter every 90 days E 11.9 1 Each 3 10/18/2023 Active Additional Information Patient not taking.Reported on 01/22/2024 Dexcom G6 SensorIndications: Type 2 diabetes mellitus with hemoglobin A1c goal of less than 7.0% ([facility]) Use as directed. 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, with long-term current use of insulin 02/22/2023 Last Assessment & Plan: "RED FLAG" [...] Acting Insulin o GLP-1 Agonist (ex: Victoza, Danyelle Baileyic) o Other: long actin insulin DM Secondary Prevention o CORINA Inhibitor / ARB o Moderate-High Intensity Statin o Aspirin Cystoid macular edema of right eye 09/28/2020 Coronary artery disease invo lving [place] coronary artery of [place] heart without angina pectoris 12/16/2019 Last Assessment [...] as of this encounter (statuses as of 02/01/2024) Resolved Problems Problem Noted Date Diagnosed Date [...] Last Assessment & Plan: Compliant with lactulose Disease of pancreas, unspecified 03/01/2023 04/18/2023 BMI [...] 12/21/2016 Diabetes mellitus 01/05/2014 12/21/2016 LEYVA RESEARCH OTHER*[id number] 01/05/2014 12/21/2016 Axillary pain 11/03/2013 12/21/2016 Obesity, [...] to be scanned into Electronic Medical Record [facility] V710 Clinical Trial*[id number] 12/22/2010 04/14/2011 S/P aortic valve replacement 12/01/2010 08/26/2011 S/P AORTIC VALVE REPLACEMENT - #25 pericardial Mc valve 11/01/2010 06/28/2018 Overview: Aortic valve replacement with #25 pericardial Mc valve, model 2800TFX, serial number [id number] (Dr. Walker) [facility] V710 Clinical Trial*[id number] 10/18/2010 11/21/2010 Body mass index (BMI) of [...] as of this encounter (statuses as of 02/01/2024) Immunizations Name Administration Dates Next Due COVID-19 mRNA, LNP-s, No Pre serve, 2-Dose Series (Moderna) 10/25/2021,02/16/2021,01/18/2021 HEP A - Hepatitis A (Adult > 18 yrs) 06/07/2018, 12/05/2017 Hepatitis B, 20+ yrs 06/07/2018,01/08/20 18,12/05/2017,06/15,10/27/2013,09/12/2013 Pneumococcal Conjugate Vacci ne, 20-valent ([id number]) 06/22/2023 Pneumococcal Polysaccharide PPV23 (Pneumovax) 01/02/2008 Seasonal [...] encounter Miscellaneous Notes * Telephone Encounter - Ruth Moreno LPN - 11/02/2023 3:38 PM EST Please arrange hospital discharge Thank you * Telephone Encounter - Donavon Kolb RN - 11/02/2023 3:03 PM EST Patient discharged to home from [facility]. Nephrology consulted, no discharge recommendations. Please assist with follow up if required, thank you. documented in this encounter Plan of Treatment Upcoming Encounters Date Type Department Care Team (Late st Contact Info) Description 02/04/2024 10:20 AM EDT Office Visit Family Practice [facility] [address] [facility] [place] [address] Gregory Rausch MD [address] [facility] [place] [address] 02/13/2024 10:00 AM EDT Home Visit Ad[facility] at [facility] [address] [facility] [place] [address] Jaycee Sorto RN [address] [facility] [place] [address] 02/21/2024 9:00 AM EDT Office Visit Pharmacy, [facility] [address] [facility] [place] [address] Pharmacist1, [facility] [address] [facility] [place] [address] 03/06/2024 7:45 AM EDT Office Visit Ophthalmology, [facility] [address] [facility] [place] [address] Ramsey Burnett, DO [address] [place] [address] 06/03/2024 9:00 AM EDT Telemedicine Psychiatry [place] [address] [place] [address] Janice Atwood MD [address] [facility] [address] 07/17/2024 9:30 AM EDT Office Visit Cardiology, [facility] [address] [place] [address] Roberto Carlos Muniz, [address] [place] [address] 11/27/2024 9:40 AM EST Office Visit Nephrology, [facility] [address] [facility] [place] [address] Fidelina Baumann MD [address] [facility] [place] [address] Scheduled Procedures Name Priority Associated Diagnoses Date/Ti [...] 10) 12/26/2023 12/25/2023 CKD PHOS USE SMARTSET 92724 06/18/202405/26, 06/16/2023, 06/15/2023, Additional history exists GFR 07/09/2024 01/08/2024, 09/25, 08/02/2023, Additional history exists HbA1c 08/01/2024 01/30/2024, 08/25, 07/31/2023, Additional history exists Diabetic Eye Exam 09/13/2024 09/13/2023, , 09/13/2023, Additional history exists B-12 09/18/2024 09/18/2023, 08/24, 2020, Additional history exists Albumin/Creatinine Ratio 01/07/2025 024, 03/09/2023, 12/22/2022, Additional history exists CKD HGB USE SMARTSET 75629 01/07/202501/07, 01/08/2024, 10/15/2023, Additional history exists TSH [...] this encounter Medical Devices Implanted Type Area Closet Builder Device Identifier Shelf Expiration Date Model / Serial / Lot Cath Roselia Single Lumen - [id number] Implanted:Qty : 1 on 03/12/2008 at OR [facility] Left: Chest [facility] *DO NOT USE* 07/25/2012 21-4053-24 / / [id number] Sut Steel 6 M654g - [id number] Implanted:Qty : 1 on 11/01/2010 at OR [facility] N/A: Chest DO NOT USE M654G / / Sut Steel 6 M654g - [id number] Implanted:Qty : 1 on 11/01/2010 at OR [facility] N/A: Chest DO NOT USE M654G / / Valve Tarsha Aortic [id number] - [id number] Implanted:Qty : 1 on 11/01/2010 at OR [facility] N/A: Heart [employer] 05/20/2012 2800TFX-25 / / [id number] Mesh Soft [id number] - [id number] Implanted:Qty : 1 on 10/10/2019 by Gigi [place]rickson [place] [facility] [place]: Abdomen CR BARD : DAVOL [id number] 05/21/2024 [id number] / / [id number] Lens 22.5 Sn60wf - [id number] - [id number] Implanted:Qty : 1 on 09/15/2020 by Renaldo Cook, Cece Acosta MD at [facility] Right: Eye IVA : SURGICAL [id number] 05/13/2025 SN60 WF.225 / [id number] / [id number] Lens 21.5 Sn60wf - [id number] - [id number] Implanted:Qty : 1 on 12/19/2023 by Ramsey Burnett DO at OR [facility] Left: Eye IVA : SURGICAL 12/03/2024 SN60WF.2 15 / [id number] / documented as of this encounter [...] the patient have Health Care Power of Leases And Land Supervisor? No Full Code 10/10/2019 8:40 AM 10/10/2019 5:53 PM This order reflects the patients wishes and were consensually agreed upon. Healthcare Agents on File Name Relationship Healthcare Agent Relationshi p Communication Gigi Rose Adult Child Health Care Repr esentative (appointed verbally by patient or by statute hierarchy) Care Teams Center Rep Relationship Specialty Start Date End Date Gregory Rausch MD [address] [place] [address] PCP - General Family Medicine 02/12/20 documented as of this encounter
--- OUTSIDE RECORDS SUMMARY | 2024-06-05 14:54 | External Medical Summary | Summary of Care ---
Author Name Unknown Organization [facility] Address [address] [place] [address] Phone [phone] Care Team Providers Care Stock Control Clerk Name Role Phone Gregory Rausch MD Primary Care Provider [phone] Reason for Visit * Reason Onset Date Comments [facility]: Maintenance 02/07/2024 Encounter Details Date Type Department Care Team (Late st Contact Info) Description 02/07/2024 Telephone [facility], [facility] [address] [place] [address] [facility], Nurse [facility] [address] [place] [address] [facility]: Maintenance Allergies Active Allergy [...] by mouth in the morning. 0 Active BearchTouch Verio In Vitro Strip (Glucose Blood) Use [...] insulin ([facility]) Inject 30 Units under the skin in the morning. 6 mL 2 01/10/2024 Active BD Pen Needle Short U/F 31G X 8 MMIndications:Type 2 diabetes mellitus with hemoglobin A1c goal of less than 7.0% ([facility]),Type 2 diabetes mellitus with stage 3a chronic kidney disease, with long-term current use of insulin ([facility]) Use with insulin 4 times daily 400 [...] MEDICATIONS 90 Tablet 2 01/10/2024 Active Nystatin 059356 UNIT/GM External Powder (Nystop)Indications: Candidal intertrigo Apply [...] eye 09/28/2020 Coronary artery disease invo lving [place] coronary artery of [place] heart without angina pectoris 12/16/2019 Last Assessment [...] 12/21/2016 Diabetes mellitus 01/05/2014 12/21/2016 LEYVA RESEARCH OTHER*[id number] 01/05/2014 12/21/2016 Axillary pain 11/03/2013 12/21/2016 Obesity, [...] to be scanned into Electronic Medical Record [facility] V710 Clinical Trial*[id number] 12/22/2010 04/14/2011 S/P aortic valve replacement 12/01/2010 08/26/2011 S/P AORTIC VALVE REPLACEMENT - #25 pericardial Hernandez valve 11/01/2010 06/28/2018 Overview: Aortic valve replacement with #25 pericardial Hernandez valve, model 2800TFX, serial number [id number] (Dr. Walker) [facility] V710 Clinical Trial*[id number] 10/18/2010 11/21/2010 Type 2 diabetes mellitus wit [...] 06/07/2018,01/08/20 18,12/05/2017,06/15,10/27/2013,09/12/2013 Pneumococcal Conjugate Vacci ne, 20-valent (Qycwonm90) 06/22/2023 Pneumococcal Polysaccharide PPV23 (Pneumovax) 01/02/2008 Seasonal [...] Telephone Encounter - Yolis Mejia LPN - 02/07/2024 10:05 AM EDT Images from the original note were not included. [facility] Remote Patient Monitoring Able to contact patient: Trigger type: Abnormal reading(s): AMC (Advanced Monitored Caregiving): Scale: Trigger weight: 156.2 lbs; weight increased 5 lbs in 5 day(s) Trigger priority per AMC: high Patient takes diuretic medication: No Symptom review: denies new/worsening symptoms Diet Reviewed: N/A Fluid Intake Reviewed: N/A Self-Management Plan Reviewed: Patient's 'Red Flags': Low blood sugars Increased SHAW Feelings of depression Risk assignment recommendation: Moderate risk findings (check as applicable): [x] Moderate trigger priority on AMC [] Confirmed tympanic equivalent temperature 100.4-101.9 F onehour post administration of antipyretic [] Weight gain [...] denies increased SOB, - edema, - abdominal bloating. She does not follow a fluid or sodium restriction. She will call [facility] with any concerns Overall risk and identified plan: Moderate risk: Route to RNCM (Registered Nurse Burglar Alarm Operator) and Advance Practitioner documented in this encounter Plan of Treatment Upcoming Encounters Date Type Department Care Team (Late st Contact Info) Description 02/13/2024 10:00 AM EDT Home Visit [facility] [place], [facility] [address] [place] [address] Jaycee Sorto RN 132 [facility] [place] [address] 02/21/2024 9:00 AM EDT Office Visit Pharmacy, [facility] [address] [facility] [place] [address] Pharmacist1, [facility] 200 [facility] [place] [address] 03/06/2024 7:45 AM EDT Office Visit Ophthalmology, [facility] [address] [place] [address] Ramsey Burnett DO [address] [place] [address] 06/03/2024 9:00 AM EDT Telemedicine Psychiatry Cris Mercedes [address] [place] [address] Janice Atwood MD [address] [place] [address] 07/17/2024 9:30 AM EDT Office Visit Cardiology, [facility] 132 [place] [address] Roberto Carlos Muniz, [address] [facility] [address] 08/12/2024 9:20 AM EST Office Visit Family Practice [facility] [address] [place] [address] Gregory Rausch MD [address] [place] [address] 11/27/2024 9:40 AM EST Office Visit Nephrology, [facility] [address] [place] [address] Fidelina Baumann MD [address] [place] [address] Scheduled Procedures Name Priority Associated Diagnoses Date/Ti [...] 10) 12/26/2023 12/25/2023 CKD PHOS USE SMARTSET 09159 06/18/202405/26, 06/16/2023, 06/15/2023, Additional history exists GFR 07/09/2024 01/08/2024, 09/25, 08/02/2023, Additional history exists HbA1c 08/01/2024 01/30/2024, 08/25, 07/31/2023, Additional history exists Diabetic Eye Exam 09/13/2024 09/13/2023, , 09/13/2023, Additional history exists B-12 09/18/2024 09/18/2023, 08/24, 2020, Additional history exists Albumin/Creatinine Ratio 01/07/2025 024, 03/09/2023, 12/22/2022, Additional history exists CKD HGB USE SMARTSET 85256 01/07/202501/07, 01/08/2024, 10/15/2023, Additional history exists TSH [...] this encounter Medical Devices Implanted Type Area Mix Mill Tender Device Identifier Shelf Expiration Date Model / Serial / Lot Cath Roselia Single Lumen - [id number] Implanted:Qty : 1 on 03/12/2008 at OR [facility] Left: Chest [facility] *DO NOT USE* 07/25/2012 21-4053-24 / / [id number] Sut Steel 6 M654g - [id number] Implanted:Qty : 1 on 11/01/2010 at OR [facility] N/A: Chest DO NOT USE M654G / / Sut Steel 6 M654g - [id number] Implanted:Qty : 1 on 11/01/2010 at OR [facility] N/A: Chest DO NOT USE M654G / / Valve Tarsha Aortic [id number] - [id number] Implanted:Qty : 1 on 11/01/2010 at OR [facility] N/A: Heart [employer] DANIEL 05/20/2012 2800TFX-25 / / [id number] Mesh Soft [id number] - [id number] Implanted:Qty : 1 on 10/10/2019 by Gigi Hendrickson MD at [place] [facility] N/A: Abdomen CR BARD : DAVOL [id number] 05/21/2024 [id number] / / [id number] Lens 22.5 Sn60wf - [id number] - [id number] Implanted:Qty : 1 on 09/15/2020 by Renaldo Cook, Cece Acosta MD at OR [facility] Right: Eye IVA : SURGICAL [id number] 05/13/2025 SN60 WF.225 / [id number] / [id number] Lens 21.5 Sn60wf - [id number] - [id number] Implanted:Qty : 1 on 12/19/2023 by Ramsey Burnett DO at OR [facility] Left: Eye IVA : SURGICAL 12/03/2024 SN60WF.2 15 / [id number] / documented as of this encounter [...] the patient have Health Care Power of Repair Specialist? No Full Code 10/10/2019 8:40 AM 10/10/2019 5:53 PM This order reflects the patients wishes and were consensually agreed upon. Healthcare Agents on File Name Relationship Healthcare Agent Relationshi p Communication Gigi Rose Adult Child Health Care Repr esentative (appointed verbally by patient or by statute hierarchy) Care Teams Stock Control Clerk Relationship Specialty Start Date End Date Gregory Rausch MD [address] [place] [address] PCP - General Family Medicine 02/12/20 documented as of this encounter
--- OUTSIDE RECORDS SUMMARY | 2024-06-05 14:54 | External Medical Summary | Summary of Care ---
Author Name Unknown Organization [facility] Address [address] [place] [address] Phone [phone] Care Team Providers Care Pizza Delivery Driver Name Role Phone Gregory Rausch MD Primary Care Provider [phone] Reason for Visit * Reason Onset Date Comments Pre Cert/Prior Auth 02/04/2024 Encounter Details Date Type Department Care Team (Late st Contact Info) Description 02/04/2024 Telephone Family Practice [facility] [address] [place] [address] Gregory [...] as of this encounter (statuses as of 02/05/2024) Medications Medication Sig Dispensed Refills Start Date [...] by mouth in the morning. 0 Active AdzillaTouch Verio In Vitro Strip (Glucose Blood) Use [...] MEDICATIONS 90 Tablet 2 01/10/2024 Active Nystatin 573012 UNIT/GM External Powder (Nystop)Indications: Candidal intertrigo Apply [...] as of this encounter (statuses as of 02/05/2024) Active Problems Problem Noted Date Diagnosed Date [...] eye 09/28/2020 Coronary artery disease invo lving [place] coronary artery of [place] heart without angina pectoris 12/16/2019 Last Assessment [...] as of this encounter (statuses as of 02/05/2024) Resolved Problems Problem Noted Date Diagnosed Date [...] 12/21/2016 Diabetes mellitus 01/05/2014 12/21/2016 LEYVA RESEARCH OTHER*[id number] 01/05/2014 12/21/2016 Axillary pain 11/03/2013 12/21/2016 Obesity, [...] FOLLOWING SURGERY, UNSPECIFI ED ([facility] BSO 08/25/2011) 08/26/2011 12/21/2016 ADVANCE DIRECTIVE INFORMATION 04/17/2011 12/21/2016 Overview: Yes, Patient instructed to provide copy of advance directive for provider to review and to be scanned into Electronic Medical Record ADVANCE DIRECTIVE INFORMATION 03/01/2011 12/21/2016 Overview: Yes, Patient instructed to provide copy of advance directive for provider to review and to be scanned into Electronic Medical Record [facility] V710 Clinical Trial*[id number] 12/22/2010 04/14/2011 S/P aortic valve replacement 12/01/2010 08/26/2011 S/P AORTIC VALVE REPLACEMENT - #25 pericardial Hernandez valve 11/01/2010 06/28/2018 Overview: Aortic valve replacement with #25 pericardial Hernandez valve, model 2800TFX, serial number [id number] (Dr. Walker) [facility] V710 Clinical Trial*[id number] 10/18/2010 11/21/2010 Type 2 diabetes mellitus wit [...] as of this encounter (statuses as of 02/05/2024) Immunizations Name Administration Dates Next Due COVID-19 mRNA, LNP-s, No Pre serve, 2-Dose Series (Moderna) 10/25/2021,02/16/2021,01/18/2021 HEP A - Hepatitis A (Adult > 18 yrs) 06/07/2018, 12/05/2017 Hepatitis B, 20+ yrs 06/07/2018,01/08/20 18,12/05/2017,06/15,10/27/2013,09/12/2013 Pneumococcal Conjugate Vacci ne, 20-valent (Megvyug98) 06/22/2023 Pneumococcal Polysaccharide PPV23 (Pneumovax) 01/02/2008 Seasonal [...] encounter Miscellaneous Notes * Telephone Encounter - Karina Douglass LPN - 02/05/2024 8:19 AM EDT Gladys calling from [facility]. Alexandra is approved * Telephone Encounter - Jose Briggs RN - 02/04/2024 3:35 PM EDT Completed and signed form along with attached office visit note from today 02/04/2024 faxed to [facility] at [phone] with confirmation. Will await response from insurance. * Telephone Encounter - Jose Briggs RN - 02/04/2024 1:55 PM EDT Received fax from [facility] pharmacy stating that Fidaxomicin 200 MG Oral Tablet requires prior-authorization and that they started it on CMM. Hernandez: [id number] Prior-authorization form partially completed, printed, and placed on Dr. Rausch's desk for completion and signature. documented in this encounter Plan of Treatment Upcoming Encounters Date Type Department Care Team (Late st Contact Info) Description 02/13/2024 10:00 AM EDT [facility] Visit [facility], [facility] [address] [place] [address] Jaycee Sorto, RN 132 [facility] [place] [address] 02/21/2024 9:00 AM EDT Office Visit Pharmacy, [facility] 200 [facility] [place] [address] Pharmacist1, [facility] [address] [place] [address] 03/06/2024 7:45 AM EDT Office Visit Ophthalmology, [facility] [address] [facility] [place] [address] Ramsey Burnett DO [address] [place] [address] 06/03/2024 9:00 AM EDT Telemedicine Psychiatry [facility] [address] [place] [address] Janice Atwood MD [address] [place] [address] 07/17/2024 9:30 AM EDT Office Visit Cardiology, [facility] [address] [place] [address] Roberto Carlos Muniz, DO 132 [facility] [place] [address] 08/12/2024 9:20 AM EST Office Visit Family Practice [facility] [address] [facility] [place] [address] Gregory Rausch MD 132 [facility] [place] [address] 11/27/2024 9:40 AM EST Office Visit Nephrology, [facility] [place] [address] [place] [address] Fidelina Baumann MD [address] [place] [address] Scheduled Procedures Name Priority Associated Diagnoses Date/Ti [...] 10) 12/26/2023 12/25/2023 CKD PHOS USE SMARTSET 78789 06/18/202405/26, 06/16/2023, 06/15/2023, Additional history exists GFR 07/09/2024 01/08/2024, 09/25, 08/02/2023, Additional history exists HbA1c 08/01/2024 01/30/2024, 08/25, 07/31/2023, Additional history exists Diabetic Eye Exam 09/13/2024 09/13/2023, , 09/13/2023, Additional history exists B-12 09/18/2024 09/18/2023, 08/24, 2020, Additional history exists Albumin/Creatinine Ratio 01/07/2025 024, 03/09/2023, 12/22/2022, Additional history exists CKD HGB USE SMARTSET 79390 01/07/202501/07, 01/08/2024, 10/15/2023, Additional history exists TSH [...] this encounter Medical Devices Implanted Type Area Admin Asst Device Identifier Shelf Expiration Date Model / Serial / Lot Cath Roselia Single Lumen - [id number] Implanted:Qty : 1 on 03/12/2008 at OR [facility] Left: Chest [facility] *DO NOT USE* 07/25/2012 21-4053-24 / / [id number] Sut Steel 6 M654g - [id number] Implanted:Qty : 1 on 11/01/2010 at OR [facility] N/A: Chest DO NOT USE M654G / / Sut Steel 6 M654g - [id number] Implanted:Qty : 1 on 11/01/2010 at OR [facility] N/A: Chest DO NOT USE M654G / / Valve Tarsha Aortic [id number] - [id number] Implanted:Qty : 1 on 11/01/2010 at OR [facility] N/A: Heart [employer] DANIEL 05/20/2012 2800TFX-25 / / [id number] Mesh Soft [id number] - [id number] Implanted:Qty : 1 on 10/10/2019 by Gigi Hendrickson MD at [place] [facility] N/A: Abdomen CR BARD : DAVOL [id number] 05/21/2024 [id number] / / [id number] Lens 22.5 Sn60wf - [id number] - [id number] Implanted:Qty : 1 on 09/15/2020 by Cece Roland MD at [facility] Right: Eye IVA : SURGICAL [id number] 05/13/2025 SN60 WF.225 / [id number] / [id number] Lens 21.5 Sn60wf - [id number] - [id number] Implanted:Qty : 1 on 12/19/2023 by Ramsey Burnett DO at OR [facility] Left: Eye IVA : SURGICAL 12/03/2024 SN60WF.2 15 / [id number] / documented as of this encounter [...] the patient have Health Care Power of Diesel Power Mechanic? No Full Code 10/10/2019 8:40 AM 10/10/2019 5:53 PM This order reflects the patients wishes and were consensually agreed upon. Healthcare Agents on File Name Relationship Healthcare Agent Relationshi p Communication Gigi Rose Adult Child Health Care Repr esentative (appointed verbally by patient or by statute hierarchy) Care Teams Pizza Delivery Driver Relationship Specialty Start Date End Date Gregory Rausch MD [address] [place] [address] PCP - General Family Medicine 02/12/20 documented as of this encounter
--- OUTSIDE RECORDS SUMMARY | 2024-06-05 14:54 | External Medical Summary | Summary of Care ---
Author Name Unknown Organization [facility] Address [address] [place] [address] Phone [phone] Care Team Providers Care Forestry Instructor Name Role Phone Gregory Rausch MD Primary Care Provider [phone] Reason for Visit * Reason Onset Date Comments Medication Refill 02/06/2024 Encounter Details Date Type Department Care Team (Late st Contact Info) Description 02/06/2024 Refill General Internal Medicine [facility] 200 [facility] [place] [address] Victoria Garcia MD [address] [place] [address] Dizziness Allergies Active Allergy Reactions Criticality Noted Date [...] hypoglycemia E11.9 100 Tab 3 07/06/2021 Active MobissimoTouch Verio w/Device Kit Use up to 4 times a day E11.9 1 Kit 0 02/10/2022 Active MobissimoTouch Delica Lancets 33G TEST 4 TIMES DAILY [...] by mouth in the morning. 0 Active MobissimoTouch Verio In Vitro Strip (Glucose Blood) Use [...] of insulin ([facility]) Inject 30 Units under the skin [...] MEDICATIONS 90 Tablet 2 01/10/2024 Active Nystatin 198453 UNIT/GM External Powder (Nystop)Indications :Candidal intertrigo Apply [...] the morning. 16 g 3 02/07/2024 Active Fluticasone Propionate 50 MCG/ACT Nasal [...] eye 09/28/2020 Coronary artery disease invo lving [place] coronary artery of [place] heart without angina pectoris 12/16/2019 Last Assessment [...] 12/21/2016 Diabetes mellitus 01/05/2014 12/21/2016 LEYVA RESEARCH OTHER*[id number] 01/05/2014 12/21/2016 Axillary pain 11/03/2013 12/21/2016 Obesity, [...] cath 09/201008/26/2011 12/21/2016 FOLLOWING SURGERY, UNSPECIFI ED ([facility] BSO 08/25/2011) 08/26/2011 12/21/2016 ADVANCE DIRECTIVE INFORMATION 04/17/2011 12/21/2016 Overview: Yes, Patient instructed to provide copy of advance directive for provider to review and to be scanned into Electronic Medical Record ADVANCE DIRECTIVE INFORMATION 03/01/2011 12/21/2016 Overview: Yes, Patient instructed to provide copy of advance directive for provider to review and to be scanned into Electronic Medical Record [facility] V710 Clinical Trial*[id number] 12/22/2010 04/14/2011 S/P aortic valve replacement 12/01/2010 08/26/2011 S/P AORTIC VALVE REPLACEMENT - #25 pericardial Mc valve 11/01/2010 06/28/2018 Overview: Aortic valve replacement with #25 pericardial Mc valve, model 2800TFX, serial number [id number] (Dr. Walker) [facility] V710 Clinical Trial*[id number] 10/18/2010 11/21/2010 Type 2 diabetes mellitus wit [...] 06/07/2018,01/08/20 18,12/05/2017,06/15,10/27/2013,09/12/2013 Pneumococcal Conjugate Vacci ne, 20-valent (Czgcgvv12) 06/22/2023 Pneumococcal Polysaccharide PPV23 (Pneumovax) 01/02/2008 Seasonal [...] encounter Miscellaneous Notes * Telephone Encounter - Jovita Luna CRNP - 02/07/2024 9:35 AM EDTSigned Prescriptions: Disp Refills Fluticasone Propionate 50 MCG/ACT Nasal Bhatt*16 g 3 Sig: Administer 2 Sprays into each nostril in the morning. Authorizing Provider: JOVITA LUNA * Telephone Encounter - Elli Hinton LPN - 02/06/2024 6:04 PM EDT Pending Prescriptions: Disp Refills Fluticasone Propionate 50 MCG/ACT Nasal Bhatt*16 g 3 Sig: Administer 2 Sprays into each nostril in the morning. * Telephone Encounter - Jacki Bradford OSA - 02/06/2024 3:02 PM EDT Did you pend patient's preferred pharmacy and medication before forwarding?yes Pharmacy: [id number] Pending Prescriptions: Disp Refills Fluticasone Propionate 50 MCG/ACT Nasal S*16 g 3 Sig: Administer 2 Sprays into each nostril in the morning. Last Visit: 03/01/2023 (in office), Visit date not found (telemedicine) Next Visit: Visit date not found If no future appointments scheduled, and last appointment is greater than a year ago, please schedule patient for a follow-up appointment Last date the medication was ordered: [id number] Is this request for a controlled substance?No [...] 10:00 AM EDT Home Visit [facility] at [facility] [address] [place] [address] Jaycee Sorto, RN 132 [facility] [place] [address] 02/21/2024 9:00 AM EDT Office Visit Pharmacy, [facility] 200 [facility] [place] [address] Pharmacist1, [facility] [address] [facility] [address] 03/06/2024 7:45 AM EDT Office Visit Ophthalmology, [facility] 132 [facility] [place] [address] Ramsey Burnett DO [address] [place] [address] 06/03/2024 9:00 AM EDT Telemedicine Psychiatry Cris Mercedes [address] [place] [phone] Janice Atwood MD [address] [facility] [place] [address] 07/17/2024 9:30 AM EDT Office Visit Cardiology, [facility] 132 [facility] [place] [address] Roberto Carlos Muniz DO 132 [facility] [place] [address] 08/12/2024 9:20 AM EST Office Visit Family Practice [facility] [address] [place] [address] Gregory Rausch MD [address] [place] [address] 11/27/2024 9:40 AM EST Office Visit Nephrology, [facility] 200 [facility] [place] [address] Fidelina Baumann MD [address] [facility] [place] [address] Scheduled Procedures Name Priority Associated Diagnoses Date/Ti [...] 10) 12/26/2023 12/25/2023 CKD PHOS USE SMARTSET 44365 06/18/202405/26, 06/16/2023, 06/15/2023, Additional history exists GFR 07/09/2024 01/08/2024, 09/25, 08/02/2023, Additional history exists HbA1c 08/01/2024 01/30/2024, 08/25, 07/31/2023, Additional history exists Diabetic Eye Exam 09/13/2024 09/13/2023, , 09/13/2023, Additional history exists B-12 09/18/2024 09/18/2023, 08/24, 2020, Additional history exists Albumin/Creatinine Ratio 01/07/2025 024, 03/09/2023, 12/22/2022, Additional history exists CKD HGB USE SMARTSET 54294 01/07/202501/07, 01/08/2024, 10/15/2023, Additional history exists TSH [...] this encounter Medical Devices Implanted Type Area Track Layer Head Device Identifier Shelf Expiration Date Model / Serial / Lot Cath Roselia Single Lumen - [id number] Implanted:Qty : 1 on 03/12/2008 at OR [facility] Left: Chest [facility] *DO NOT USE* 07/25/2012 21-4053-24 / / [id number] Sut Steel 6 M654g - [id number] Implanted:Qty : 1 on 11/01/2010 at OR [facility] N/A: Chest DO NOT USE M654G / / Sut Steel 6 M654g - [id number] Implanted:Qty : 1 on 11/01/2010 at OR [facility] N/A: Chest DO NOT USE M654G / / Valve Tarsha Aortic [id number] - [id number] Implanted:Qty : 1 on 11/01/2010 at OR [facility] N/A: Heart [employer] DANIEL 05/20/2012 2800TFX-25 / / [id number] Mesh Soft [id number] - [id number] Implanted:Qty : 1 on 10/10/2019 by Gigi Hendrickson MD [place] [facility] N/A: Abdomen CR BARD : DAVOL [id number] 05/21/2024 [id number] / / [id number] Lens 22.5 Sn60wf - [id number] - [id number] Implanted:Qty : 1 on 09/15/2020 by Renaldo Cook, Cece Acosta MD at [facility] Right: Eye IVA : SURGICAL [id number] 05/13/2025 SN60 WF.225 / [id number] / [id number] Lens 21.5 Sn60wf - [id number] - [id number] Implanted:Qty : 1 on 12/19/2023 by Ramsey Burnett DO at OR [facility] Left: Eye IVA : SURGICAL 12/03/2024 SN60WF.2 15 / [id number] / documented as of this encounter Visit Diagnoses Diagnosis Dizziness Dizziness and giddiness documented in this encounter Advance Directives Latest [...] the patient have Health Care Power of Form Raiser? No Full Code 10/10/2019 8:40 AM 10/10/2019 5:53 PM This order reflects the patients wishes and were consensually agreed upon. Healthcare Agents on File Name Relationship Healthcare Agent [facility] p Communication Gigi Rose Adult Child Health Care Repr esentative (appointed verbally by patient or by statute hierarchy) Care Teams Forestry Instructor Relationship Specialty Start Date End Date Gregory Rausch MD [address] [place] [address] PCP - General Family Medicine 02/12/20 documented as of this encounter
--- OUTSIDE RECORDS SUMMARY | 2024-06-05 14:54 | External Medical Summary | Summary of Care ---
Author Name Unknown Organization [facility] Address [address] [place] [address] Phone [phone] Care Team Providers Care Records Clerk Name Role Phone Deon Rausch MD Primary Care Provider [phone] Reason for Visit * Reason Onset Date Comments Pre Cert/Prior Auth 02/04/2024 Encounter Details Date Type Department Care Team (Late st Contact Info) Description 02/04/2024 Telephone Family Practice [facility] [address] [place] [address] Deon [...] by mouth in the morning. 0 Active nookedTouch Verio In Vitro Strip (Glucose Blood) Use [...] [place]) Inject 30 Units under the skin in [...] MEDICATIONS 90 Tablet 2 01/10/2024 Active Nystatin 660169 UNIT/GM External Powder (Nystop)Indications :Candidal intertrigo Apply [...] eye 09/28/2020 Coronary artery disease invo lving [place] coronary artery of [place] heart without angina pectoris 12/16/2019 Last Assessment [...] 12/21/2016 Diabetes mellitus 01/05/2014 12/21/2016 LEYVA RESEARCH OTHER*[id number] 01/05/2014 12/21/2016 Axillary pain 11/03/2013 12/21/2016 Obesity, [...] cath 09/201008/26/2011 12/21/2016 FOLLOW[facility] 08/26/2011 12/21/2016 ADVANCE DIRECTIVE INFORMATION 04/17/2011 12/21/2016 Overview: Yes, Patient instructed to provide copy of advance directive for provider to review and to be scanned into Electronic Medical Record ADVANCE DIRECTIVE INFORMATION 03/01/2011 12/21/2016 Overview: Yes, Patient instructed to provide copy of advance directive for provider to review and to be scanned into Electronic Medical Record [place] V710 Clinical Trial*[id number] 12/22/2010 04/14/2011 S/P aortic valve replacement 12/01/2010 08/26/2011 S/P AORTIC VALVE REPLACEMENT - #25 pericardial Mc valve 11/01/2010 06/28/2018 Overview: Aortic valve replacement with #25 pericardial Mc valve, model 2800TFX, serial number [id number] (Dr. Walker) [facility] V710 Clinical Trial*[id number] 10/18/2010 11/21/2010 Type 2 diabetes mellitus wit [...] 06/07/2018,01/08/20 18,12/05/2017,06/15,10/27/2013,09/12/2013 Pneumococcal Conjugate Vacci ne, 20-valent ([id number]) 06/22/2023 Pneumococcal Polysaccharide PPV23 (Pneumovax) 01/02/2008 Seasonal [...] 02/05/2024 8:19 AM EDT Gladys calling from [facility]. Dificid is approved * Telephone Encounter - Jose Briggs RN - 02/04/2024 3:35 PM EDT Completed and signed form along with attached office visit note from today 02/04/2024 faxed to [facility] [employer] [facility] at [phone] with confirmation. Will await response from insurance. * Telephone Encounter - Jose Briggs RN - 02/04/2024 1:55 PM EDT Received fax from [facility] pharmacy stating that Fidaxomicin 200 MG Oral Tablet requires prior-authorization and that they started it on CMM. Hernandez: [id number] Prior-authorization form partially completed, printed, and placed on Dr. Rausch's desk for completion and signature. documented in this encounter Plan of Treatment Upcoming Encounters Date Type Department Care Team (Late st Contact Info) Description 02/13/2024 10:00 AM EDT Home Visit [facility] at [facility] [address] [place] [address] Jaycee Sorto RN [address] [facility] [place] [address] 02/21/2024 9:00 AM EDT Office Visit Pharmacy, [facility] [address] [facility] [place] [address] Pharmacist1, [facility] [address] [facility] [place] [address] 03/06/2024 7:45 AM EDT Office Visit Ophthalmology, [facility] [address] [place] [address] Ramsey Burnett, DO 21 [facility] [place] [address] 06/03/2024 9:00 AM EDT Telemedicine Psychiatry Mian [place] [address] [place] [id number] Janice Atwood MD [address] [place] [address] 07/17/2024 9:30 AM EDT Office Visit Cardiology, [facility] [address] [facility] [place] [address] Roberto Carlos Muniz, [address] [place] [address] 08/12/2024 9:20 AM EST Office Visit Family Practice [facility] [address] [facility] [place] [address] Deon Rausch MD [address] [place] [address] 11/27/2024 9:40 AM EST Office Visit Nephrology, [facility] [address] [facility] [place] [address] Fidelina Baumann MD [address] [facility] [place] [address] Scheduled Procedures Name Priority Associated Diagnoses Date/Ti [...] 10) 12/26/2023 12/25/2023 CKD PHOS USE SMARTSET 25938 06/18/202405/26, 06/16/2023, 06/15/2023, Additional history exists GFR 07/09/2024 01/08/2024, 09/25, 08/02/2023, Additional history exists HbA1c 08/01/2024 01/30/2024, 08/25, 07/31/2023, Additional history exists Diabetic Eye Exam 09/13/2024 09/13/2023, , 09/13/2023, Additional history exists B-12 09/18/2024 09/18/2023, 08/24, 2020, Additional history exists Albumin/Creatinine Ratio 01/07/2025 024, 03/09/2023, 12/22/2022, Additional history exists CKD HGB USE SMARTSET 90926 01/07/202501/07, 01/08/2024, 10/15/2023, Additional history exists TSH [...] this encounter Medical Devices Implanted Type Area Credit And Collection Manager Device Identifier Shelf Expiration Date Model / Serial / Lot Cath Roselia Single Lumen - [id number] Implanted:Qty : 1 on 03/12/2008 at OR [facility] Left: Chest [facility] *DO NOT USE* 07/25/2012 21-4053-24 / / [id number] Sut Steel 6 M654g - [id number] Implanted:Qty : 1 on 11/01/2010 at OR [facility] N/A: Chest DO NOT USE M654G / / Sut Steel 6 M654g - [id number] Implanted:Qty : 1 on 11/01/2010 at OR [facility] N/A: Chest DO NOT USE M654G / / Valve Tarsha Aortic [id number] - [id number] Implanted:Qty : 1 on 11/01/2010 at OR [facility] N/A: Heart [employer] DANIEL 05/20/2012 2800TFX-25 / / [id number] Mesh Soft [id number] - [id number] Implanted:Qty : 1 on 10/10/2019 by Gigi Hendrickson MD at [place] [facility] N/A: Abdomen CR BARD : DAVOL [id number] 05/21/2024 [id number] / / [id number] Lens 22.5 Sn60wf - [id number] - [id number] Implanted:Qty : 1 on 09/15/2020 by Renaldo Cook, Cece Acosta MD at OR [facility] Right: Eye IVA : SURGICAL [id number] 05/13/2025 SN60 WF.225 / [id number] / [id number] Lens 21.5 Sn60wf - [id number] - [id number] Implanted:Qty : 1 on 12/19/2023 by Ramsey Burnett DO at OR [facility] Left: Eye IVA : SURGICAL 12/03/2024 SN60WF.2 15 / [id number] / documented as of this encounter [...] patient have Health Care Power of Director Of Teaching And Learning? No Full Code 10/10/2019 8:40 AM 10/10/2019 5:53 PM This order reflects the patients wishes and were consensually agreed upon. Healthcare Agents on File Name Relationship Healthcare Agent Relationshi p Communication Gigi Gutierrez [facility] Adult Child Health Care Repr esentative (appointed verbally by patient or by statute hierarchy) Care Teams Records Clerk Relationship Specialty Start Date End Date Deon Rausch MD [address] [place] [address] PCP - General Family Medicine 02/12/20 documented as of this encounter
--- OUTSIDE RECORDS SUMMARY | 2024-06-05 14:55 | External Medical Summary ---
Author Name Unknown Address Unknown Organization K09:[facility] [place] [address] Laboratory Report Ordering Provider Test Date Status SANNA YEE V 01/30/2024 08:27:59 Final Observation Date Value Abnormality Reference (Units ) Status HbA1C 01/30/2024 08:27:59 8.8 Above high normal 4. 0-5.6 (%) Final Performing Location [facility] [place] [address]
--- OUTSIDE RECORDS SUMMARY | 2024-06-05 14:55 | External Medical Summary | Summary of Care ---
Author Name Unknown Organization [facility] Address [address] [place] [address] Phone [phone] Care Team Providers Care Social Service Agency Director Name Role Phone Gregory Rausch MD Primary Care Provider +1 [phone] Reason for Visit * Reason Onset Date Comments [facility]: Acute 01/23/2024 Encounter Details Date Type Department Care Team (Late st Contact Info) Description 01/23/2024 Telephone [facility] [address] [facility] [place] [address] Angelica Welch, RN [address] [facility] [place] [address] [facility]: Acute Allergies Active Allergy Reactions Criticality Noted Date Comments Adhesive Tape 07/02/2017 Can tolerate band-aids Glycerin Other (Please comment) 03/12/2008 Topical agents with glycein-burning & itching Lactose 12/09/2014 Dairy - gas Lisinopril Cough 01/21/2010 Monosodium Glutamate Edema Other 03/12/2008 Hands and feet Penicillins Rash 11/14/2007 documented as of this encounter (statuses as of 01/23/2024) Medications Medication Sig Dispensed Refills Start Date [...] hypoglycemia E11.9 100 Tab 3 07/06/2021 Active NextlandingTouch Verio w/Device Kit Use up to 4 [...] 12/03/2023 Insulin Aspart 100 UNIT/ML Injection Solution (NovoLOG)Indications [...] A1c goal of less than 7.0% ([facility]) Use as directed. Use 1 transmitter every 90 days E 11.9 1 Each 3 10/18/2023 Active Additional Information Patient not taking.Reported on 01/22/2024 Dexcom G6 SensorIndications:Ty pe 2 diabetes mellitus with hemoglobin A1c goal of less than 7.0% ([facility]) Use as directed. Use 1 sensor every 10 days E 11.9 9 Each 3 10/18/2023 Active Additional Information Patient not taking.Reported on 01/22/2024 DULoxetine HCl 20 MG Oral Capsule Delayed [...] failure with preserved ejection fraction (HFpEF) ([facility]) Take 1 Tablet by mouth in the morning and 1 Tablet before bedtime. 180 Tablet 3 01/22/2024 Active Tresiba FlexTouch 200 UNIT/ML Subcutaneous Solution Pen-injector (Insulin Degludec)Indications :Type 2 diabetes mellitus with hemoglobin A1c goal of less than 7.0% ([facility]),Type 2 diabetes mellitus with stage 3a chronic kidney disease, with long-term current use of insulin ([facility]) Inject 30 Units under the skin in the morning. 6 mL 2 01/10/2024 Active BD Pen Needle Short U/F 31G X 8 MMIndications:Type 2 diabetes mellitus with hemoglobin A1c goal of less than 7.0% ([facility]),Type 2 diabetes mellitus with stage 3a chronic kidney disease, with long-term current use of insulin ([facility]) Use with insulin 4 times daily [...] MEDICATIONS 90 Tablet 2 01/10/2024 Active Nystatin 844705 UNIT/GM External Powder (Nystop)Indications: Candidal intertrigo Apply topically to affected area 3 times a day. Apply to affected areas 60 g 1 01/10/2024 Active Aquaphor External Ointment Apply topically to affected area as needed for Dry Skin. Apply to face 420 g 0 01/10/2024 Active Gabapentin 100 MG Oral Capsule (Neurontin)Indicatio ns:Polyneuropathy associated with underlying disease ([facility]) TAKE 1 CAPSULE BY MOUTH EVERY DAY IN THE MORNING , AT NOON, AND BEFORE BEDTIME 90 Capsule 2 01/10/2024 Active Ozempic (2 MG/DOSE) 8 MG/3ML Subcutaneous Solution Pen-injector (Semaglutide (2 MG/DOSE))Indications :weekly on fridays Inject 2 mg under the skin once a week. 9 mL 3 01/09/2024 Active Ammonium Lactate 12 % External Lotion (Lac-Hydrin) Apply to both feet once daily. 400 g 2 01/10/2024 Active Atorvastatin Calcium 40 MG Oral Tablet (Lipitor)Indications :Heart failure, systolic, due to idiopathic cardiomyopathy ([facility]),S/P aortic valve replacement,HTN, goal below 140/80,Dyslipidemia, [...] 01/10/2024 Active Fidaxomicin 200 MG Oral Tablet (Dificid) Take 1 Tablet by mouth in the morning and 1 Tablet before bedtime. 20 Tablet 0 01/15/2024 Active documented as of this encounter (statuses as of 01/23/2024) Active Problems Problem Noted Date Diagnosed Date [...] eye 09/28/2020 Coronary artery disease invo lving [place] coronary artery of [place] heart without angina pectoris 12/16/2019 Last Assessment [...] as of this encounter (statuses as of 01/23/2024) Resolved Problems Problem Noted Date Diagnosed Date [...] 12/21/2016 Diabetes mellitus 01/05/2014 12/21/2016 LEYVA RESEARCH OTHER*[id number] 01/05/2014 12/21/2016 Axillary pain 11/03/2013 12/21/2016 Obesity, [...] scanned into Electronic Medical Record [facility] V710 Clinical Trial*[id number] 12/22/2010 04/14/2011 S/P aortic valve replacement 12/01/2010 08/26/2011 S/P AORTIC VALVE REPLACEMENT - #25 pericardial Mc valve 11/01/2010 06/28/2018 Overview: Aortic valve replacement with #25 pericardial Mc valve, model 2800TFX, serial number [id number] (Dr. Walker) [facility] V710 Clinical Trial*[id number] 10/18/2010 11/21/2010 Body mass index (BMI) of [...] as of this encounter (statuses as of 01/23/2024) Immunizations Name Administration Dates Next Due COVID-19 mRNA, LNP-s, No Pre serve, 2-Dose Series (Moderna) 10/25/2021,02/16/2021,01/18/2021 HEP A - Hepatitis A (Adult > 18 yrs) 06/07/2018, 12/05/2017 Hepatitis B, 20+ yrs 06/07/2018,01/08/20 18,12/05/2017,06/15,10/27/2013,09/12/2013 Pneumococcal Conjugate Vacci ne, 20-valent ([id number]) 06/22/2023 Pneumococcal Polysaccharide PPV23 (Pneumovax) 01/02/2008 Seasonal [...] Telephone Encounter - Angelica Welch RN - 01/23/2024 3:52 PM EDT Follow up call to patient to check blood sugar reading post 2nd bolus of novolog 8 units per MTM. Left vm requesting return call with updated reading. * Telephone Encounter - Angelica Welch RN - 01/23/2024 2:25 PM EDT [facility] directory clerk Acute Call Date: 01/23/2024 Time: 2:25 PM Name: Jovita Rose : 1960 Caller: caregiver, Stephanie Relationship to Chief Complaint Patient presents with [facility]: Acute HPI: Jovita Rose is a 63 year old female that is calling [facility] Intake to report elevated blood sugar. Was 404 at 1 pm, took 8 units of novolog, then at 2pm was 423. Communication Note Name: Jovita Rose Situation: Jovita Rose is a 63 year old female that is calling [facility] to report elevated blood sugar. Was 404 at 1 pm, took 8 units of novolog, then at 2pm was 423. Background: pt with long hx of uncontrolled diabetes, type 2 insulin dependent. Scheduled to get aninsulin pump at her next appt with MTM on 01/30/24. Current dm medications: Metformin 1000 mg bid-currently on hold. Pt states that doctor told her to hold while she has cdiff Tresiba 30 units sq daily Ozempic 2mg sq weekly Novolog flex pen per sliding scale-asked MTM for clarification. Only novolog on list is what will go in her insulin pump. Assessment: Pt is alert and oriented x 3 Feels tired today, dry mouth, polyuria. Denies increased hunger Blood sugars today: 830 am 281 1 pm 202 2 pm 423 Yesterday they were in the 200s during the day. Pt unsure why they are higher today. Denies eating a lot of high sugar foods. Today so far has eaten: 2 baked spring rolls A mom's meal that consisted of : cheese burger soup and pretzel bites. Denies fever/chills Denies any cough, congestion or other signs of infection aside from cdiff Urinating without difficulty or pain Recommendation: Instructed pt to increase water intake at this time and to await further instruction. Outreach to [facility] MTM : Zak Self, Pharmacist who will reach out to patient to give instructions. He will also list in his note a novolog scale to follow for coverage. See MTM for TE this date. Follow up calls x 2 Patient's chief complaint for this call: Other, describe hyperglycemia Pain Denies pain Baseline Assessment Able to performing ADLs at baseline (walking, daily tasks, etc.): Yes Chief Complaint is related to a chronic condition: Yes Chronic Condition: DM Chief Complaint is a change in baseline: No Patient prescribed oxygen? No Patient has been ordered DME equipment (assistive devices, respiratory equipment, etc.): No Medication Reconciliation: (See medication list) Received flu shot this season: Yes Taking medication as ordered: Yes Medications ordered/taking to treat reason for call: Yes, PRN medication(s) novolog-need direction from [facility] Heart failure symptoms: No COPD exacerbation symptoms: No Reinforcement Education: Instructed to eat a healthy, well-balanced diet. Be cognizant of foods high in sugar and carbohydrates. Increase physical activity, take all medications as directed, monitor blood glucose twice a day. Check blood glucose once before breakfast (fasting) and once two hours after a meal (post-prandial), document and take readings to next PCP visit. Report consistently elevated or low readings. Goal is <130mg/dl fasting and <180mg/dl post-prandial. Target A1C is <7%. Increase fluid intake for now Treatment/Plan: (need to report) Level of call: Non-Acute Recommended treatment plan: Clinical advice given over the phone Call back instructions provided to patient. documented in this encounter Plan of Treatment Upcoming Encounters Date Type Department Care Team (Late st Contact Info) Description 01/24/2024 2:00 PM EDT Scheduled Telephone [facility] [address] [place] [address] Coordinator, [facility] [address] [place] [address] 01/25/2024 10:30 AM EDT Scheduled Telephone [facility] [address] [place] [address] Coordinator, [facility] [address] [place] [address] 01/30/2024 9:10 AM EDT Office Visit Pharmacy, [facility] [address] [facility] [place] [address] Pharmacist1, [facility] [address] [facility] [place] [address] 02/04/2024 10:20 AM EDT Office Visit Family Practice [facility] [address] [facility] [place] [address] Gregory Rausch MD 132 [place] [address] 02/13/2024 10:00 AM EDT [facility] Visit [facility], [facility] [address] [facility] [place] [address] Jaycee Sorto RN 132 [place] [address] 02/21/2024 9:00 AM EDT Office Visit Pharmacy, [facility] [address] [facility] [place] [address] Pharmacist1, [facility] [address] [facility] [place] [address] 03/06/2024 7:45 AM EDT Office Visit Ophthalmology, [facility] [address] [place] [address] Ramsey Burnett, DO 21 [place] [address] 06/03/2024 9:00 AM EDT Telemedicine Psychiatry Cris Mercedes [address] [place] [address] Janice Atwood MD [address] [facility] [place] [address] 07/17/2024 9:30 AM EDT Office Visit Cardiology, [facility] [address] [place] [address] Roberto Carlos Muniz, [address] [place] [address] 11/27/2024 9:40 AM EST Office Visit Nephrology, [facility] [address] [facility] [place] [address] Fidelina Baumann MD [address] [facility] [place] [address] Scheduled Procedures Name Priority Associated Diagnoses Date/Ti [...] visit until score < 10) 12/26/2023 12/25/2023 HbA1c 03/19/2024 09/18/2023, 11/0 03/2023, 04/09/2023, Additional history exists CKD PHOS USE SMARTSET 54245 06/18/202405/26, 06/16/2023, 06/15/2023, Additional history exists GFR 07/09/2024 01/08/2024, 09/25, 08/02/2023, Additional history exists Diabetic Eye Exam 09/13/2024 09/13/2023, , 09/13/2023, Additional history exists B-12 09/18/2024 09/18/2023, 08/24, 2020, Additional history exists Albumin/Creatinine Ratio 01/07/2025 024, 03/09/2023, 12/22/2022, Additional history exists CKD HGB USE SMARTSET 36565 01/07/202501/07, 01/08/2024, 10/15/2023, Additional history exists TSH [...] this encounter Medical Devices Implanted Type Area Commercial Development Manager Device Identifier Shelf Expiration Date Model / Serial / Lot Cath Roselia Single Lumen - [id number] Implanted:Qty : 1 on 03/12/2008 at OR [facility] Left: Chest [facility] *DO NOT USE* 07/25/2012 21-4053-24 / / [id number] Sut Steel 6 M654g - [id number] Implanted:Qty : 1 on 11/01/2010 at OR [facility] N/A: Chest DO NOT USE M654G / / Sut Steel 6 M654g - [id number] Implanted:Qty : 1 on 11/01/2010 at OR [facility] N/A: Chest DO NOT USE M654G / / Valve Tarsha Aortic [id number] - [id number] Implanted:Qty : 1 on 11/01/2010 at OR [facility] N/A: Heart [employer] DANIEL 05/20/2012 2800TFX-25 / / [id number] Mesh Soft [id number] - [id number] Implanted:Qty : 1 on 10/10/2019 by Gigi Hendrickson MD at [place] [facility] N/A: Abdomen CR BARD : DAVOL [id number] 05/21/2024 [id number] / / [id number] Lens 22.5 Sn60wf - [id number] - [id number] Implanted:Qty : 1 on 09/15/2020 by Cece Roland MD at OR [facility] Right: Eye IVA : SURGICAL [id number] 05/13/2025 SN60 WF.225 / [id number] / [id number] Lens 21.5 Sn60wf - [id number] - [id number] Implanted:Qty : 1 on 12/19/2023 by Ramsey Burnett DO at OR [facility] Left: Eye IVA : SURGICAL 12/03/2024 SN60WF.2 15 / [id number] / documented as of this encounter [...] the patient have Health Care Power of Service Associate? No Full Code 10/10/2019 8:40 AM 10/10/2019 5:53 PM This order reflects the patients wishes and were consensually agreed upon. Healthcare Agents on File Name Relationship Healthcare Agent Relationshi p Communication Gigi Rose Adult Child Health Care Repr esentative (appointed verbally by patient or by statute hierarchy) Care Teams Social Service Agency Director Relationship Specialty Start Date End Date Gregory Rausch MD [address] [place] [address] PCP - General Family Medicine 02/12/20 documented as of this encounter
--- OUTSIDE RECORDS SUMMARY | 2024-06-05 14:55 | External Medical Summary | Summary of Care ---
Author Name Unknown Organization [facility] Address [address] [place] [address] Phone [phone] Care Team Providers Care [employer]ilingual [employer] Teacher Name Role Phone Gregory Rausch MD Primary Care Provider [phone] Reason for Visit * Reason Comments Diabetes Follow-Up Dosage Adjustment In Person (Anticoag Cl inic) Encounter Details Date Type Department Care Team (Late st Contact Info) Description 01/30/2024 9:10 AM EDT Office Visit Pharmacy, [facility] [address] [place] [address] Pharmacist1, [facility] [address] [facility] [place] [address] Type 2 diabetes mellitus with hemoglobin A1c goal of less than 7.0% ([facility])* Allergies Active Allergy Reactions Criticality Noted Date Comments Adhesive Tape 07/02/2017 Can tolerate band-aids Glycerin Other (Please comment) 03/12/2008 Topical agents with glycein-burning & itching Lactose 12/09/2014 Dairy - gas Lisinopril Cough 01/21/2010 Monosodium Glutamate Edema Other 03/12/2008 Hands and feet Penicillins Rash 11/14/2007 documented as of this encounter (statuses as of 01/30/2024) Medications Medication Sig Dispensed Refills Start Date [...] 7.0% ([facility]) Use as directed. Use 1 transmitter every 90 days E 11.9 1 Each 3 10/18/2023 Active Additional Information Patient not taking.Reported on 01/22/2024 Dexcom G6 SensorIndications:Ty pe 2 diabetes mellitus with hemoglobin A1c goal of less than 7.0% ([facility]) Use as directed. Use [...] insulin ([facility]) Inject 30 Units under [...] MEDICATIONS 90 Tablet 2 01/10/2024 Active Nystatin 264974 UNIT/GM External Powder (Nystop)Indications: Candidal intertrigo Apply topically to affected area 3 times a day. Apply to affected areas 60 g 1 01/10/2024 Active Aquaphor External Ointment Apply topically to affected area as needed for Dry Skin. Apply to face 420 g 0 01/10/2024 Active Gabapentin 100 MG Oral Capsule (Neurontin)Indicatio ns:Polyneuropathy associated with underlying disease ([facility]) TAKE 1 CAPSULE BY MOUTH [...] as of this encounter (statuses as of 01/30/2024) Active Problems Problem Noted Date Diagnosed Date [...] 09/28/2020 Coronary artery disease invo lving [place] coronary artery of [place] heart without angina pectoris 12/16/2019 Last Assessment [...] as of this encounter (statuses as of 01/30/2024) Resolved Problems Problem Noted Date Diagnosed Date [...] 12/21/2016 Diabetes mellitus 01/05/2014 12/21/2016 LEYVA RESEARCH OTHER*[id number] 01/05/2014 12/21/2016 Axillary pain 11/03/2013 12/21/2016 Obesity, [...] Medical Record [facility] V710 Clinical Trial*[id number] 12/22/2010 04/14/2011 S/P aortic valve replacement 12/01/2010 08/26/2011 S/P AORTIC VALVE REPLACEMENT - #25 pericardial Hernandez valve 11/01/2010 06/28/2018 Overview: Aortic valve replacement with #25 pericardial Hernandez valve, model 2800TFX, serial number [id number] (Dr. Walker) [facility] V710 Clinical Trial*[id number] 10/18/2010 11/21/2010 Body mass index (BMI) of [...] as of this encounter (statuses as of 01/30/2024) Immunizations Name Administration Dates Next Due COVID-19 mRNA, LNP-s, No Pre serve, 2-Dose Series (Moderna) 10/25/2021,02/16/2021,01/18/2021 HEP A - Hepatitis A (Adult > 18 yrs) 06/07/2018, 12/05/2017 Hepatitis B, 20+ yrs 06/07/2018,01/08/20 18,12/05/2017,06/15,10/27/2013,09/12/2013 Pneumococcal Conjugate Vacci ne, 20-valent ([id number]) 06/22/2023 Pneumococcal Polysaccharide PPV23 (Pneumovax) 01/02/2008 Seasonal [...] as of this encounter Progress Notes * HeatherNeeraj Payne, [facility] - 01/30/2024 9:08 AM EDT Medication Therapy Disease Management Clinic - Diabetes Management Progress Note Jovita Rose, identified by name and date of , is a 63 year old female being seen for diabetes management/education. Patient presents for return diabetic visit. DIABETES: Current diabetic medications: Tresiba 30 units once daily Ozempic 2mg every Sunday Metformin 1000mg twice daily (On Hold) Novolog CF 2/50 over 200 (Flextouch pen) Omnipod Insulin Pump (NOT started yet, plan [...] Site: Arm and Abdomen Lifestyle: Diet: unchanged History of Treatment Barriers: Lifestyle: None Therapy considerations: Cost Medication: None Glucose Review/SMBG: Per patient BG 200-400. BG when Dexcom G7 started was 397 and increased to >400 before leaving Hypoglycemia: Does your blood sugar go below 70 mg/dL? No Hyperglycemia symptoms present: none Goal <7 Recent Labs Units 01/30/24 0827 09/18/23 0932 07/31/23 1134 HEMOGLOBIN A1C - [facility] % -- 7.5* 6.3* HEMOGLOBIN A1C POCT - [facility] % 8.8* -- -- Recent Labs Units 01/08/24 1222 10/15/23 1156 08/02/23 0000 ESTIMATED GLOMERULAR FILTRATION RATE - [facility] mL/min 63 44* -- EGFR-OUTSIDE LAB ML/MIN -- -- 77.9 CREATININE - [facility] mg/dL 1.0 1.3* -- CREATININE-OUTSIDE LAB MG/DL -- -- 0.80 Lab Results Component Value Date/Time CREATININE - [facility] 1.0 01/08/2024 12:22 PM CREATININE - [facility] 1.3 (H) 10/15/2023 11:56 AM CREATININE - [facility] 0.8 07/31/2023 11:34 AM CREATININE - [facility] 1.2 (H) 09/07/2020 10:58 AM CREATININE - [facility] 1.1 (H) 05/21/2020 02:32 PM CREATININE - [facility] 1.1 (H) 05/19/2020 02:01 PM CREATININE ISTAT 0.9 10/15/2017 12:22 PM CREATININE, BLD (G-CMC) 0.69 11/03/2013 06:40 PM CREATININE, RANDOM URINE - [facility] 58 01/08/2024 12:29 PM CREATININE, RANDOM URINE - [facility] 21 03/09/2023 12:44 PM CREATININE, RANDOM URINE - [facility] 21 12/22/2022 12:28 PM CREATININE, RANDOM URINE - [facility] 140 03/21/2017 10:41 AM CREATININE, RANDOM URINE - [facility] 23 10/13/2014 03:02 PM CREATININE, RANDOM URINE - [facility] 33 02/03/2014 05:34 PM CREATININE-OUTSIDE LAB 0.80 08/02/2023 12:00 AM CREATININE-OUTSIDE LAB 0.99 03/05/2022 12:00 AM CREATININE-OUTSIDE LAB 1.10 07/17/2017 12:00 AM HYPERTENSION: Patient on ACEi/ARB: no, CORINA induced cough BP Readings from Last 3 Encounters: 01/22/24 160/80 01/18/24 116/76 01/08/24 152/74 Blood pressure at goal: yes HYPERLIPIDEMIA: Patient is taking moderate or high intensity statin: yes, Atorvastatin 40mg daily HEALTH MAINTENANCE REVIEW: Health Maintenance Due Topic Date Due HIV Screening Never done Diabetic Foot Exam 2021 COVID-19 Vaccine ( season) 2023 DXA Scan 12/18/2023 Depression, Most Recent Score >= 10 (will fire each visit until score < 10) 12/26/2023 ASSESSMENT & PLAN: ICD-10-CM 1. Type 2 diabetes mellitus with hemoglobin A1c goal of less than 7.0% ([facility]) E11.9 Dexcom G7: Patient Education and Review Patient provided G7 CGM components and training manual. Reviewed the following information with patient using provided futures trader literature: Introduced CGM and components How to set up display device (cell phone with Dexcom [id number]) Follow the onscreen instructions on wood shingle roofer or appt to enter: Low and high alerts Sensor code Insert sensor Choose sensor site Insert sensor with applicator Pair sensor Wait for sensor to pair Tap start sensor No readings during the 30 minute warmup Keep display device within 20 feet during warmup Home screen overview Review home screen overview in using your G7 with patient Home screen shows Sensor glucose readings Trend arrow Trend graph High and low alerts Treatment decisions Review treatment decisions in using your G7 with patient Use your meter if: Your G7 readings don't match your symptoms Your G7 doesn't show both a number and an arrow Ending Sensor Session Review ending your sensor session in using your G7 with patient Remove sensor from body Patient set up personal device and self-inserted sensor and transmitter in office independently of pharmacist involvement other than for material review and support. BG Readings - Blood sugars uncontrolled. See above Dexcom start BG Medications - Reviewed current regimen, patient is adherent to regimen. No changes today. Waiting for 3 week Dexcom report and Omnipod 5 start. Diet, Exercise, Lifestyle - No significant lifestyle changes since last visit. Discussed with patient today. Patient is agreeable to wear Dexcom G7 or G6. Patient aware to contact clinic if any hypoglycemia before next visit. MEDICATION CHANGES: no change Diabetic Medications: Tresiba 30 units once daily Ozempic 2mg [...] Date Immunizations: Up to Date Foot Exam: Up to Date Eye Exam: Up to Date Annual Wellness Visit: Up to Date FOLLOW UP: Return to clinic in 3 weeks for Omnipod V start 02/21/2024 Neeraj Romero RPh, [facility]ORT[facility] Clinical Pharmacist - Oil Burner Repairer Medication Therapy Management Clinic 01/30/2024, 9:08 AM documented in this encounter Plan of Treatment Upcoming Encounters Date Type Department Care Team (Late st Contact Info) Description 02/04/2024 10:20 AM EDT Office Visit Family Practice [facility] [address] [facility] [place] [address] Gregory Rausch MD [address] [facility] [place] [address] 02/13/2024 10:00 AM EDT Home Visit [facility], [facility] [address] [facility] [place] [address] Jaycee Sorto RN [address] [facility] [place] [address] 02/21/2024 9:00 AM EDT Office Visit Pharmacy, [facility] [address] Pharmacist1, [facility] [address] [facility] [address] 03/06/2024 7:45 AM EDT Office Visit Ophthalmology, [facility] [address] [facility] [place] [address] Ramsey Burnett, DO [address] [facility] [address] 06/03/2024 9:00 AM EDT Telemedicine Psychiatry [place] [facility] [address] [place] [phone] Janice Atwood MD [address] [place] [address] 07/17/2024 9:30 AM EDT Office Visit Cardiology, [facility] [address] [facility] [place] [address] Roberot Carlos Muniz, DO [address] [facility] [place] [address] 11/27/2024 9:40 AM EST Office Visit Nephrology, [facility] [address] [facility] [place] [address] Fidelina Baumann MD [address] [facility] [place] [address] Scheduled Procedures Name Priority Associated Diagnoses Date/Ti [...] 10) 12/26/2023 12/25/2023 CKD PHOS USE SMARTSET 09294 06/18/202405/26, 06/16/2023, 06/15/2023, Additional history exists GFR 07/09/2024 01/08/2024, 09/25, 08/02/2023, Additional history exists HbA1c 08/01/2024 01/30/2024, 08/25, 07/31/2023, Additional history exists Diabetic Eye Exam 09/13/2024 09/13/2023, , 09/13/2023, Additional history exists B-12 09/18/2024 09/18/2023, 08/24, 2020, Additional history exists Albumin/Creatinine Ratio 01/07/2025 024, 03/09/2023, 12/22/2022, Additional history exists CKD HGB USE SMARTSET 66321 01/07/202501/07, 01/08/2024, 10/15/2023, Additional history exists TSH [...] this encounter Medical Devices Implanted Type Area Online Services Manager Device Identifier Shelf Expiration Date Model / Serial / Lot Cath Roselia Single Lumen - [id number] Implanted:Qty : 1 on 03/12/2008 at OR [facility] Left: Chest [facility] *DO NOT USE* 07/25/2012 21-4053-24 / / [id number] Sut Steel 6 M654g - [id number] Implanted:Qty : 1 on 11/01/2010 at OR [facility] N/A: Chest DO NOT USE M654G / / Sut Steel 6 M654g - [id number] Implanted:Qty : 1 on 11/01/2010 at OR [facility] N/A: Chest DO NOT USE M654G / / Valve Tarsha Aortic [id number] - [id number] Implanted:Qty : 1 on 11/01/2010 at OR [facility] N/A: Heart LoopUp DANIEL 05/20/2012 2800TFX-25 / / [id number] Mesh Soft [id number] - [id number] Implanted:Qty : 1 on 10/10/2019 by Gigi Hendrickson MD at [place] [facility] N/A: Abdomen CR BARD : DAVOL [id number] 05/21/2024 [id number] / / [id number] Lens 22.5 Sn60wf - [id number] - [id number] Implanted:Qty : 1 on 09/15/2020 by Renaldo Cook, Cece Acosta MD at OR [facility] Right: Eye IVA : SURGICAL [id number] 05/13/2025 SN60 WF.225 / [id number] / [id number] Lens 21.5 Sn60wf - [id number] - [id number] Implanted:Qty : 1 on 12/19/2023 by Ramsey Burnett DO at OR [facility] Left: Eye IVA : SURGICAL 12/03/2024 SN60WF.2 15 / [id number] / documented as of this encounter Procedures Procedure Name Priority Date/Time Associated Diagnosis Comments HEMOGLOBIN A1C, POINT OF CARE Routine 01/30/2024 8:27 AM EDT Type 2 diabetes mellitus with hemoglobin A1c goal of less than 7.0% (HCC) documented in this encounter Results * (ABNORMAL) HEMOGLOBIN A1C, POINT OF CARE (01/30/2024 8:27 AM EDT) Hemoglobin A1c 8.8(H) 4.0 - 5.6 % 01/30/2024 9:20 AM EDT [facility] 56-02 Blood 01/30/2024 8:27 AM EDT 01/30/2024 9:20 AM EDT Neeraj Romero V [facility] LAB POINT OF CARE TE ST DOCKED DEVICE UNSOLICITED RESULTS [facility] [address]- [address] [place] [address] documented in this encounter Visit Diagnoses Diagnosis Type 2 [...] the patient have Health Care Power of Hammerer? No Full Code 10/10/2019 8:40 AM 10/10/2019 5:53 PM This order reflects the patients wishes and were consensually agreed upon. Healthcare Agents on File Name Relationship Healthcare Agent Relationshi p Communication Gigi Rose Adult Child Health Care Repr esentative (appointed verbally by patient or by statute hierarchy) Care Teams [employer] Teacher Relationship Specialty Start Date End Date Gregory Rausch MD [address] [place] [address] PCP - General Family Medicine 02/12/20 documented as of this encounter
--- OUTSIDE RECORDS SUMMARY | 2024-06-05 14:55 | External Medical Summary | Summary of Care ---
Author Name Unknown Organization [facility] Address [address] [place] [address] Phone [phone] Care Team Providers Care Manufacturing Storeperson Name Role Phone Gregory Rausch MD Primary Care Provider [phone] Reason for Visit * Reason Onset Date Comments [facility]: Maintenance 01/25/2024 Encounter Details Date Type Department Care Team (Late st Contact Info) Description 01/25/2024 10:30 AM EDT Scheduled Telephone [facility], [facility] [address] [place] [address] Coordinator, [facility] [address] [place] [address] Allergies Active Allergy Reactions Criticality Noted Date Comments Adhesive Tape 07/02/2017 Can tolerate band-aids Glycerin Other (Please comment) 03/12/2008 Topical agents with glycein-burning & itching Lactose 12/09/2014 Dairy - gas Lisinopril Cough 01/21/2010 Monosodium Glutamate Edema Other 03/12/2008 Hands and feet Penicillins Rash 11/14/2007 documented as of this encounter (statuses as of 01/25/2024) Medications Medication Sig Dispensed Refills Start Date [...] hypoglycemia E11.9 100 Tab 3 07/06/2021 Active WeddingLovelyTouch Verio w/Device Kit Use up to 4 times a day E11.9 1 Kit 0 02/10/2022 Active WeddingLovelyTouch Delica Lancets 33G TEST 4 TIMES DAILY [...] 7.0% ([facility]) Use as directed. Use 1 transmitter every 90 days E 11.9 1 Each 3 10/18/2023 Active Additional Information Patient not taking.Reported on 01/22/2024 Dexcom G6 SensorIndications:Ty pe 2 diabetes mellitus with hemoglobin A1c goal of less than 7.0% ([facility]) Use as directed. Use 1 [...] MEDICATIONS 90 Tablet 2 01/10/2024 Active Nystatin 621481 UNIT/GM External Powder (Nystop)Indications: Candidal intertrigo Apply topically to affected area 3 times a day. Apply to affected areas 60 g 1 01/10/2024 Active Aquaphor External Ointment Apply topically to affected area as needed for Dry Skin. Apply to face 420 g 0 01/10/2024 Active Gabapentin 100 MG Oral Capsule (Neurontin)Indicatio ns:Polyneuropathy associated with underlying disease ([facility]) TAKE 1 CAPSULE BY MOUTH [...] as of this encounter (statuses as of 01/25/2024) Active Problems Problem Noted Date Diagnosed Date [...] eye 09/28/2020 Coronary artery disease invo lving [place] coronary artery of [place] heart without angina pectoris 12/16/2019 Last Assessment [...] as of this encounter (statuses as of 01/25/2024) Resolved Problems Problem Noted Date Diagnosed Date [...] 12/21/2016 Diabetes mellitus 01/05/2014 12/21/2016 LEYVA RESEARCH OTHER*[id number] 01/05/2014 12/21/2016 Axillary pain 11/03/2013 12/21/2016 Obesity, [...] cath 09/201008/26/2011 12/21/2016 FOLLOWING SURGERY, UNSPECIFI ED ([facility] 08/25/2011) 08/26/2011 12/21/2016 ADVANCE DIRECTIVE [...] Medical Record [facility] V710 Clinical Trial*[id number] 12/22/2010 04/14/2011 S/P aortic valve replacement 12/01/2010 08/26/2011 S/P AORTIC VALVE REPLACEMENT - #25 pericardial Mc valve 11/01/2010 06/28/2018 Overview: Aortic valve replacement with #25 pericardial Mc valve, model 2800TFX, serial number [id number] (Dr. Walker) [facility] V710 Clinical Trial*[id number] 10/18/2010 11/21/2010 Body mass index (BMI) of [...] as of this encounter (statuses as of 01/25/2024) Immunizations Name Administration Dates Next Due COVID-19 mRNA, LNP-s, No Pre serve, 2-Dose Series (Moderna) 10/25/2021,02/16/2021,01/18/2021 HEP A - Hepatitis A (Adult > 18 yrs) 06/07/2018, 12/05/2017 Hepatitis B, 20+ yrs 06/07/2018,01/08/20 18,12/05/2017,06/15,10/27/2013,09/12/2013 Pneumococcal Conjugate Vacci ne, 20-valent (Jodmays18) 06/22/2023 Pneumococcal Polysaccharide PPV23 (Pneumovax) 01/02/2008 Seasonal [...] Telephone Encounter - Debo Maurer RN - 01/25/2024 9:11 AM EDT Images from the original note were not included. [facility] Telephonic Nurse Follow-Up Call [facility] Subprogram: Focused Care Management (3-9 months) Follow Up Call Type: 48 hour follow up Acute issue requiring follow-up call: Other: elevated blood sugars Objective: 01/22/2024 11:29 AM 01/18/2024 12:01 PM 01/08/2024 11:24 AM 01/08/2024 9:34 AM 01/08/2024 9:32 AM VITALS ACROSS ENCOUNTERS BP 160/80 116/76 152/74 156/72 146/74 Pulse 81 90 96 91 94 Weight 67.7 kg 70.6 kg BMI 30.12 kg/m2 31.43 kg/m2 Remote Patient Monitoring: [facility] Scale: see below - weights stable Oxygen Needs: NO supplemental oxygen needs identified DME Needs: NO DME needs identified Medications: No medication or dose adjustments made during acute episode Subjective: Condition Status: Symptoms resolved and back to baseline Current Concerns: Call placed to the pt for follow up on blood sugars. Pt states that her blood sugars were in the 200's yesterday. Still in bed this am. Feels good. No increased thirst, urination or increased hunger. Scheduled to get an insulin pump at her next appt with [facility] on 01/30/24. Disposition: Issue resolved. All appropriate follow up scheduled. Advised pt to call [facility] with any concerns or symptoms Future Visits Scheduled: Future Appointments-next 60 days Date/Time Provider Specialty Dept Phone 01/25/2024 10:30 AM Coordinator [facility] at Home [phone] 01/30/2024 9:10 AM Pharmacist1, [facility] [phone] 02/04/2024 10:20 AM (Arrive by 10:05 AM) Gregory Rausch MD Family Medicine [phone] 02/13/2024 10:00 AM Jaycee Sorto RN [facility] [phone] 02/21/2024 9:00 AM Pharmacist1, [facility] [phone] 03/06/2024 7:45 AM Ramsey Burnett DO Ophthalmology [phone] 06/03/2024 9:00 AM Janice Atwood MD Psychiatry [phone] 07/17/2024 9:30 AM (Arrive by 9:15 AM) Roberto Carlos Muniz DO Cardiology [phone] 11/27/2024 9:40 AM (Arrive by 9:25 AM) Fidelina Baumann MD Nephrology [phone] Debo T Cowlitz, RN documented in this encounter Plan of Treatment Upcoming Encounters Date Type Department Care Team (Late st Contact Info) Description 01/30/2024 9:10 AM EDT Office Visit Pharmacy, [facility] [address] [place] [address] Pharmacist1, [facility] [address] [facility] [place] [address] 02/04/2024 10:20 AM EDT Office Visit Family Practice [facility] [address] [place] [address] Gregory Rausch MD 132 [place] [address] 02/13/2024 10:00 AM EDT Home Visit [facility] [place], [facility] [address] [facility] [place] [address] Jaycee Sorto RN [address] [place] [address] 02/21/2024 9:00 AM EDT Office Visit Pharmacy, [facility] [address] [facility] [place] [address] Pharmacist1, [facility] [address] [facility] [address] 03/06/2024 7:45 AM EDT Office Visit Ophthalmology, [facility] [address] [facility] [place] [address] Ramsey Burnett, DO [facility] [place] [address] 06/03/2024 9:00 AM EDT Telemedicine Psychiatry [facility] [address] [place] [phone] Janice Atwood MD [address] [place] [address] 07/17/2024 9:30 AM EDT Office Visit Cardiology, [facility] [address] [place] [address] Roberto Carlos Muniz, [address] [place] [address] 11/27/2024 9:40 AM EST Office Visit Nephrology, [facility] [address] [facility] [place] [address] Fidelina Baumann MD [address] [facility] [place] [address] Scheduled Procedures Name Priority Associated Diagnoses Date/Ti [...] Additional history exists CKD PHOS USE SMARTSET 59357 06/18/202405/26, 06/16/2023, 06/15/2023, Additional history exists GFR 07/09/2024 01/08/2024, 09/25, 08/02/2023, Additional history exists Diabetic Eye Exam 09/13/2024 09/13/2023, , 09/13/2023, Additional history exists B-12 09/18/2024 09/18/2023, 08/24, 2020, Additional history exists Albumin/Creatinine Ratio 01/07/2025 024, 03/09/2023, 12/22/2022, Additional history exists CKD HGB USE SMARTSET 82659 01/07/202501/07, 01/08/2024, 10/15/2023, Additional history exists TSH [...] this encounter Medical Devices Implanted Type Area Exchange Floor Manager Device Identifier Shelf Expiration Date Model / Serial / Lot Cath Roselia Single Lumen - [id number] Implanted:Qty : 1 on 03/12/2008 at OR [facility] Left: Chest [employer] *DO NOT USE* 07/25/2012 21-4053-24 / / [id number] Sut [facility] 6 M654g - [id number] Implanted:Qty : 1 on 11/01/2010 at OR [facility] N/A: Chest DO NOT USE M654G / / Sut Steel 6 M654g - [id number] Implanted:Qty : 1 on 11/01/2010 at OR [facility] N/A: Chest DO NOT USE M654G / / Valve Tarsha Aortic [id number] - [id number] Implanted:Qty : 1 on 11/01/2010 at OR [facility] N/A: Heart [employer] DANIEL 05/20/2012 2800TFX-25 / / [id number] Mesh Soft 91l13sc - [id number] Implanted:Qty : 1 on 10/10/2019 by Gigi Hendrickson MD [place] [facility] N/A: Abdomen CR BARD : DAVOL [id number] 05/21/2024 [id number] / / [id number] Lens 22.5 Sn60wf - [id number] - [id number] Implanted:Qty : 1 on 09/15/2020 by Renaldo Cook, Cece Acosta MD at [facility] Right: Eye IVA : SURGICAL [id number] 05/13/2025 SN60 WF.225 / [id number] / [id number] Lens 21.5 Sn60wf - [id number] - [id number] Implanted:Qty : 1 on 12/19/2023 by Ramsey Burnett DO at OR [facility] Left: Eye IVA : SURGICAL 12/03/2024 SN60WF.2 15 / [id number] / documented as of this encounter [...] the patient have Health Care Power of Insurance Agency Manager? No Full Code 10/10/2019 8:40 AM 10/10/2019 5:53 PM This order reflects the patients wishes and were consensually agreed upon. Healthcare Agents on File Name Relationship Healthcare Agent [facility] p Communication Gigi Rose Adult Child Health Care Repr esentative (appointed verbally by patient or by statute hierarchy) Care Teams Manufacturing Storeperson Relationship Specialty Start Date End Date Gregory Rausch MD [address] [place] [address] PCP - General Family Medicine 02/12/20 documented as of this encounter
--- OUTSIDE RECORDS SUMMARY | 2024-06-05 14:55 | External Medical Summary | Summary of Care ---
Author Name Unknown Organization [facility] Address [address] [place] [address] Phone [phone] Care Team Providers Care Parts Counter Salesperson Name Role Phone Gregory Rausch MD Primary Care Provider [phone] Encounter Details Date Type Department Care Team (Latest Contact Info) Description 01/18/2024 11:00 AM EDT [facility] [address] [place] [address] Darek Junior PA-C [address] [facility] [address] Recurrent Clostridium difficile diarrhea*; Type 2 diabetes mellitus with stage 3a chronic kidney disease, with long-term current use of insulin ([facility]); Type 2 diabetes mellitus with both eyes affected by mild nonproliferative retinopathy and macular edema, with long-term current use of insulin ([facility]); Hypertensive kidney disease with stage 3a chronic kidney disease ([facility]); Mood disorder ([facility]) Allergies Active Allergy Reactions Criticality Noted Date Comments Adhesive Tape 07/02/2017 Can tolerate band-aids Glycerin Other (Please comment) 03/12/2008 Topical agents with glycein-burning & itching Lactose 12/09/2014 Dairy - gas Lisinopril Cough 01/21/2010 Monosodium Glutamate Edema Other 03/12/2008 Hands and feet Penicillins Rash 11/14/2007 documented as of this encounter (statuses as of 01/27/2024) Medications Medication Sig Dispensed Refills Start Date [...] hypoglycemia E11.9 100 Tab 3 07/06/2021 Active WeSpekeTouch Verio w/Device Kit Use up to 4 [...] less than 7.0% ([facility]) Use as directed. Use 1 transmitter every 90 days E 11.9 1 Each 10/18/2023 Active Additional Information Patient not taking.Reported on 01/22/2024 Dexcom G6 SensorIndications:Ty pe 2 diabetes mellitus with hemoglobin A1c goal of less than 7.0% ([facility]) Use as directed. Use 1 sensor every 10 days E 11.9 9 Each 10/18/2023 Active Additional Information Patient not taking.Reported [...] by mouth in the morning. 0 Active Tresiba FlexTouch 200 UNIT/ML Subcutaneous Solution [...] 4 times daily 400 Each 01/10/2024 Active Fluticasone Propionate 50 MCG/ACT Nasal [...] MEDICATIONS 90 Tablet 2 01/10/2024 Active Nystatin 157657 UNIT/GM External Powder (Nystop)Indications: Candidal intertrigo Apply topically to affected area 3 times a day. Apply to affected areas 60 g 1 01/10/2024 Active Aquaphor External Ointment Apply topically to affected area as needed for Dry Skin. Apply to face 420 g 0 01/10/2024 Active Gabapentin 100 MG Oral Capsule (Neurontin)Indicatio ns:Polyneuropathy associated with underlying disease ([facility]) TAKE 1 CAPSULE BY MOUTH EVERY DAY [...] as of this encounter (statuses as of 01/27/2024) Active Problems Problem Noted Date Diagnosed Date [...] eye 09/28/2020 Coronary artery disease invo lving [place] coronary artery of [place] heart without angina pectoris 12/16/2019 Last Assessment [...] as of this encounter (statuses as of 01/27/2024) Resolved Problems Problem Noted Date Diagnosed Date [...] 12/21/2016 Diabetes mellitus 01/05/2014 12/21/2016 LEYVA RESEARCH OTHER*[id number] 01/05/2014 12/21/2016 Axillary pain 11/03/2013 12/21/2016 Obesity, [...] ED ([facility] 08/25/2011) 08/26/2011 12/21/2016 ADVANCE DIRECTIVE INFORMATION [...] Record [facility] V710 Clinical Trial*[id number] 12/22/2010 04/14/2011 S/P aortic valve replacement 12/01/2010 08/26/2011 S/P AORTIC VALVE REPLACEMENT - #25 pericardial Mc valve 11/01/2010 06/28/2018 Overview: Aortic valve replacement with #25 pericardial Mc valve, model 2800TFX, serial number [id number] (Dr. Walker) [facility] V710 Clinical Trial*[id number] 10/18/2010 11/21/2010 Body mass index (BMI) of [...] as of this encounter (statuses as of 01/27/2024) Immunizations Name Administration Dates Next Due COVID-19 mRNA, LNP-s, No Pre serve, 2-Dose Series (Moderna) 10/25/2021,02/16/2021,01/18/2021 HEP A - Hepatitis A (Adult > 18 yrs) 06/07/2018, 12/05/2017 Hepatitis B, 20+ yrs 06/07/2018,01/08/20 18,12/05/2017,06/15,10/27/2013,09/12/2013 Pneumococcal Conjugate Vacci ne, 20-valent ([id number]) 06/22/2023 Pneumococcal Polysaccharide PPV23 (Pneumovax) 01/02/2008 Seasonal [...] Sign Reading Time Taken Comments Blood Pressure 116/76 01/18/2024 12:01 PM EDT Pulse 90 01/18/2024 12:01 PM EDT Temperature - - Respiratory Rate - - Oxygen Saturation 98% 01/18/2024 12:01 PM EDT Inhaled Oxygen Concentration - - Weight 67.7 kg (149 lb 3.2 oz) 01/18/2024 12:01 PM EDT Height - - Body Mass Index 30.12 12/19/2023 12:36 PM EDT documented in this [...] as of this encounter Progress Notes * Darek Junior PA-C - 01/18/2024 11:48 AM EDT Images from the original note were not included. [facility] Problem Oriented Charting Provider Visit Date: 01/18/2024 Time: 11:55 AM [facility] Sub-Program: Focused Care Management (3-9 months) Assessment and Plan #1 Recurrent Clostridium difficile diarrhea (Primary) Assessment & Plan: Finish dificid as ordered Probiotics ordered, but patient has not started, recommended starting today Good hand hygiene, sanitize bathroom #2 Type 2 diabetes mellitus with stage 3a chronic kidney disease, with long-term current use of insulin (HCC) #3 Type 2 diabetes mellitus with both eyes affected by mild nonproliferative retinopathy and macular edema, with long-term current use of insulin (HCC) Assessment & Plan: "RED FLAG" Diabetic symptoms: Vision Changes and Nausea / Vomiting Goal HgbA1c <7 Diabetic Complications Vascular (examples: PVD, PAD, CAD, CVA) Renal (example: CKD, Proteinuria, Dialysis) Medication Regimen Metformin Basal/Long Acting Insulin Bolus/Short Acting Insulin GLP-1 Agonist (ex: Victoza, Trulicity, Ozempic) DM Secondary Prevention Moderate-High Intensity Statin Aspirin Additional Comments Last hgba1 at goal, 7.5 (08/2023) #4 Hypertensive kidney disease with stage 3a chronic kidney disease (HCC) Assessment & Plan: BP stable today Continue toprol #5 Mood disorder (HCC) Assessment & Plan: Stable today Following with psych continue trazodone, recently added cymbalta No longer on lyrica or buspar Additional Medical Decision Making: Patient lives alone Single level apartment on 6th floor 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, 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 and getting to appts Recurrent cdiff, currently on dificid, starting probiotics Scheduled appointments in the next 60 days: Future Appointments-next 60 days Date/Time Provider Specialty Dept Phone 01/22/2024 11:00 AM Angelica Nvaas, [facility] Workers Compensation Legal Secretary [facility] [phone] 01/24/2024 2:45 PM Ramsey Burnett DO Ophthalmology [phone] 01/30/2024 9:10 AM Pharmacist1, [facility] [phone] 02/04/2024 10:20 AM (Arrive by 10:05 AM) Gregory Rausch MD Family Medicine [phone] 02/13/2024 10:00 AM Jaycee Sorto RN [facility] [phone] 02/21/2024 9:00 AM Pharmacist1, [facility] [phone] 06/03/2024 9:00 AM Janice Atwood MD Psychiatry [phone] 07/17/2024 9:30 AM (Arrive by 9:15 AM) Roberto Carlos Muniz DO Cardiology [phone] 11/27/2024 9:40 AM (Arrive by 9:25 AM) Fidelina Baumann MD Nephrology [phone] A total of 30 minutes was spent face to face (via video-based telemedicine if designated as a telemedicine visit) Subjective Subjective Is this a Telemedicine Visit? No, this is an Home Visit. Reason For [facility] Visit: Follow-Up Current Concerns: Jovita Rose is a 63 year old female seen today for a [facility] provider visit. PMH includes schizoaffective disorder, bipolar type, HTN, CAD, DM2, CKD3, obesity, DANYELLE Today's concerns are: Recurrent cdiff Was previously treated with vanco, followed by short vanco taper, before switching to dificid Symptoms did resolve initially with dificid, but have recurred since stopping She was recently started on another course of dificid Reports symptoms have improved from 8-10 liquid BM per day to around 5bm/day Stools gradually becoming more formed Denies n/v Has occasional mild abd cramping Appetite fair Continues to drink to remain hydrated Additional Objective Objective Vitals: 01/18/24 1201 Pulse: 90 SpO2: 98% BP: 116/76 Last Weights: Wt Readings from Last 3 Encounters: 01/18/24 67.7 kg (149 lb 3.2 oz) 01/08/24 70.6 kg (155 lb 11.2 oz) 01/08/24 71.2 kg (156 lb 14.4 oz) Last BPs: BP Readings from Last 4 Encounters: 01/22/24 160/80 01/18/24 116/76 01/08/24 152/74 01/08/24 156/72 General: alert and no distress Neuro: alert & oriented x 3 with fluent speech Heart: regular rate & rhythm and no murmur Lungs: lungs clear to auscultation, no wheeze, no rales, no rhonchi Abdomen: abdomen soft, non-tender, normal bowel sounds, and no rebound or guarding Ext: Normal extremities without edema Lab Review: I have reviewed the following results: Imaging results in the last 6 months No imaging results in the last 6 months BMP results Recent Labs Units 01/08/24 1229 01/08/24 1222 [...] [facility] mg/dL -- 11 27* -- 7 Lipid panel results Recent Labs Units 04/09/23 1344 02/13/23 1038 12/22/22 1217 CHOLESTEROL - [facility] mg/dL 113 100 101 HDL CHOLESTEROL - [facility] mg/dL 36* 26* 34* TRIGLYCERIDES - [facility] mg/dL 212* 503* 205* CBC results Recent Labs Units 01/08/24 1222 10/15/23 1156 07/31/23 1134 WBC K/uL 9.14 10.38 10.79 HGB g/dL 12.4 12.3 13.0 HCT % 37.0 38.3 39.3 PLT K/uL 203 175 273 HbA1c results Recent Labs Units 09/18/23 0932 07/31/23 1134 04/09/23 1344 HEMOGLOBIN A1C - [facility] % 7.5* 6.3* 7.9* TSH results Recent Labs Units 01/08/24 1222 10/15/23 1156 06/06/23 2030 TSH - [facility] uIU/mL 1.80 2.83 0.01* Medication Review "Bottles Out" medication review performed today and medication list in EMR updated Darek Junior PA-C 11:55 AM *Communication sent to PCP (via autofax if non-[facility]), [facility] Care Team members,relevant Specialty Care Physicians* documented in this encounter Miscellaneous Notes * Assessment & Plan Note - Darek Junior PA-C - 01/27/2024 8:41 PM EDT Associated Problem(s): Type 2 diabetes mellitus with both eyes affected by mild nonproliferative retinopathy and macular edema, with long-term current use of insulin (HCC) "RED FLAG" Diabetic symptoms: Vision Changes and Nausea / Vomiting Goal HgbA1c <7 Diabetic Complications Vascular (examples: PVD, PAD, CAD, CVA) Renal (example: CKD, Proteinuria, Dialysis) Medication Regimen Metformin Basal/Long Acting Insulin Bolus/Short Acting Insulin GLP-1 Agonist (ex: Victoza, Trulicity, Ozempic) DM Secondary Prevention Moderate-High Intensity Statin Aspirin Additional Comments Last hgba1 at goal, 7.5 (08/2023) * Assessment & Plan Note - Darek Junior PA-C - 01/23/2024 1:19 PM EDT Associated Problem(s): Mood disorder (HCC) Stable today Following with psych continue trazodone, recently added cymbalta No longer on lyrica or buspar * Assessment & Plan Note - Darek Junior PA-C - 01/23/2024 1:13 PM EDT Associated Problem(s): Hypertensive kidney disease with stage 3a chronic kidney disease (HCC) BP stable today Continue toprol * Assessment & Plan Note - Darek Junior PA-C - 01/23/2024 1:11 PM EDT Associated Problem(s): Recurrent Clostridium difficile diarrhea Finish dificid as ordered Probiotics ordered, but patient has not started, recommended starting today Good hand hygiene, sanitize bathroom documented in this encounter Plan of Treatment Upcoming Encounters Date Type Department Care Team (Late st Contact Info) Description 01/30/2024 9:10 AM EDT Office Visit Pharmacy, [facility] [address] [facility] [place] [address] Pharmacist1, [facility] [address] [facility] [place] [address] 02/04/2024 10:20 AM EDT Office Visit Family Practice [facility] [address] [address] Gregory Rausch MD [address] [address] 02/13/2024 10:00 AM EDT Home Visit [facility] [address] [address] Jaycee Sorto, RN [address] [address] 02/21/2024 9:00 AM EDT Office Visit Pharmacy, [facility] [address] [facility] [place] [address] Pharmacist1, [facility] [address] [facility] [place] [address] 03/06/2024 7:45 AM EDT Office Visit Ophthalmology, [facility] [address] [place] [address] Ramsey Burnett, DO [address] [place] [address] 06/03/2024 9:00 AM EDT Telemedicine Psychiatry [facility] [address] [place] [address] Janice Atwood MD [address] [place], [place] [id number] 07/17/2024 9:30 AM EDT Office Visit Cardiology, [facility] [address] [place] [address] Roberto Carlos Muniz, DO [address] [facility] [place] [address] 11/27/2024 9:40 AM EST Office Visit Nephrology, [facility] [address] [facility] [place] [address] Fidelina Baumann MD [address] [facility] [place] [address] Scheduled Procedures Name Priority Associated Diagnoses Date/Ti [...] Additional history exists CKD PHOS USE SMARTSET 77943 06/18/202405/26, 06/16/2023, 06/15/2023, Additional history exists GFR 07/09/2024 01/08/2024, 09/25, 08/02/2023, Additional history exists Diabetic Eye Exam 09/13/2024 09/13/2023, , 09/13/2023, Additional history exists B-12 09/18/2024 09/18/2023, 08/24, 2020, Additional history exists Albumin/Creatinine Ratio 01/07/2025 024, 03/09/2023, 12/22/2022, Additional history exists CKD HGB USE SMARTSET 15344 01/07/202501/07, 01/08/2024, 10/15/2023, Additional history exists TSH [...] this encounter Medical Devices Implanted Type Area Bottler Device Identifier Shelf Expiration Date Model / Serial / Lot Cath Roselia Single Lumen - [id number] Implanted:Qty : 1 on 03/12/2008 at OR [facility] Left: Chest [facility] *DO NOT USE* 07/25/2012 21-4053-24 / / [id number] Sut Steel 6 M654g - [id number] Implanted:Qty : 1 on 11/01/2010 at OR [facility] N/A: Chest DO NOT USE M654G / / Sut Steel 6 M654g - [id number] Implanted:Qty : 1 on 11/01/2010 at OR [facility] N/A: Chest DO NOT USE M654G / / Valve Tarsha Aortic [id number] - [id number] Implanted:Qty : 1 on 11/01/2010 at OR [facility] N/A: Heart MC Out[employer] DANIEL 05/20/2012 [id number]-[id number] / / [id number] Mesh Soft [id number] - [id number] Implanted:Qty : 1 on 10/10/2019 by Gigi Hendrickson MD at [facility] N/A: Abdomen CR BARD : DAVOL [id number] 05/21/2024 [id number] / / [id number] Lens 22.5 Sn60wf - [id number] - [id number] Implanted:Qty : 1 on 09/15/2020 by Renaldo Cook, Cece Acosta MD at OR [facility] Right: Eye IVA : SURGICAL [id number] 05/13/2025 SN60 WF.225 / [id number] / [id number] Lens 21.5 Sn60wf - [id number] - [id number] Implanted:Qty : 1 on 12/19/2023 by Ramsey Burnett DO at OR [facility] Left: Eye IVA : SURGICAL 12/03/2024 SN60WF.2 15 [id number] / documented as of this encounter Visit Diagnoses Diagnosis Recurrent Clostridium difficile diarrhea- Primary Intestinal infection due to clostridium difficile Type 2 diabetes mellitus with stage 3a chronic kidney disease, with long-term current use of insulin (HCC) Type 2 diabetes mellitus with both eyes affected by mild nonproliferative retinopathy and macular edema, with long-term current use of insulin (HCC) Hypertensive kidney disease with stage 3a chronic kidney disease (HCC) Mood disorder (HCC) Unspecified episodic mood disorder documented in this encounter Advance Directives Latest [...] the patient have Health Care Power of Paint Roller Covers Supervisor? No Full Code 10/10/2019 8:40 AM 10/10/2019 5:53 PM This order reflects the patients wishes and were consensually agreed upon. Healthcare Agents on File Name Relationship Healthcare Agent Relationshi p Communication [facility] Adult Child Health Care Repr esentative (appointed verbally by patient or by statute hierarchy) Care Teams Parts Counter Salesperson Relationship Specialty Start Date End Date Gregory Rausch MD [address] [address] PCP - General Family Medicine 02/12/20 documented as of this encounter
--- OUTSIDE RECORDS SUMMARY | 2024-06-05 14:55 | External Medical Summary | Summary of Care ---
Author Name Unknown Organization [facility] Address [address] [place] [address] Phone [phone] Care Team Providers Care Builder Beam Name Role Phone Gregory Rausch MD Primary Care Provider [phone] Reason for Visit * Reason Onset Date Comments [facility]: Maintenance 01/24/2024 Encounter Details Date Type Department Care Team (Late st Contact Info) Description 01/24/2024 2:00 PM EDT Scheduled Telephone [facility], [facility] [address] [facility] [place] [address] Coordinator, [facility] 132 [facility] [place] [address] Allergies Active Allergy Reactions Criticality Noted Date Comments Adhesive Tape 07/02/2017 Can tolerate band-aids Glycerin Other (Please comment) 03/12/2008 Topical agents with glycein-burning & itching Lactose 12/09/2014 Dairy - gas Lisinopril Cough 01/21/2010 Monosodium Glutamate Edema Other 03/12/2008 Hands and feet Penicillins Rash 11/14/2007 documented as of this encounter (statuses as of 01/24/2024) Medications Medication Sig Dispensed Refills Start Date [...] hypoglycemia E11.9 100 Tab 3 07/06/2021 Active Giraffe FriendTouch Verio w/Device Kit Use up to 4 times a day E11.9 1 Kit 0 02/10/2022 Active Giraffe FriendTouch Delica Lancets 33G TEST 4 TIMES DAILY [...] less than 7.0% ([facility]) Use as directed. Use 1 transmitter every 90 days E 11.9 1 Each 3 10/18/2023 Active Additional Information Patient not taking.Reported on 01/22/2024 Dexcom G6 SensorIndications:Ty pe 2 diabetes mellitus with hemoglobin A1c goal of less than 7.0% ([facility]) Use as directed. Use 1 [...] MEDICATIONS 90 Tablet 2 01/10/2024 Active Nystatin 835931 UNIT/GM External Powder (Nystop)Indications: Candidal intertrigo Apply topically to affected area 3 times a day. Apply to affected areas 60 g 1 01/10/2024 Active Aquaphor External Ointment Apply topically to affected area as needed for Dry Skin. Apply to face 420 g 0 01/10/2024 Active Gabapentin 100 MG Oral Capsule (Neurontin)Indicatio ns:Polyneuropathy associated with underlying disease ([facility]) TAKE 1 CAPSULE BY MOUTH [...] as of this encounter (statuses as of 01/24/2024) Active Problems Problem Noted Date Diagnosed Date [...] eye 09/28/2020 Coronary artery disease invo lving eek coronary artery of eek heart without angina pectoris 12/16/2019 Last Assessment [...] as of this encounter (statuses as of 01/24/2024) Resolved Problems Problem Noted Date Diagnosed Date [...] 12/21/2016 Diabetes mellitus 01/05/2014 12/21/2016 LEYVA RESEARCH OTHER*[id number] 01/05/2014 12/21/2016 Axillary pain 11/03/2013 12/21/2016 Obesity, [...] cath 09/201008/26/2011 12/21/2016 FOLLOWING SURGERY, UNSPECIFI ED ([facility] BSO 08/25/2011) 08/26/2011 12/21/2016 ADVANCE DIRECTIVE INFORMATION 04/17/2011 12/21/2016 Overview: Yes, Patient instructed to provide copy of advance directive for provider to review and to be scanned into Electronic Medical Record ADVANCE DIRECTIVE INFORMATION 03/01/2011 12/21/2016 Overview: Yes, Patient instructed to provide copy of advance directive for provider to review and to be scanned into Electronic Medical Record [facility] V710 Clinical Trial*[id number] 12/22/2010 04/14/2011 S/P aortic valve replacement 12/01/2010 08/26/2011 S/P AORTIC VALVE REPLACEMENT - #25 pericardial Mc valve 11/01/2010 06/28/2018 Overview: Aortic valve replacement with #25 pericardial Mc valve, model 2800TFX, serial number [id number] (Dr. Walker) [facility] V710 Clinical Trial*[id number] 10/18/2010 11/21/2010 Body mass index (BMI) of [...] as of this encounter (statuses as of 01/24/2024) Immunizations Name Administration Dates Next Due COVID-19 mRNA, LNP-s, No Pre serve, 2-Dose Series (Moderna) 10/25/2021,02/16/2021,01/18/2021 HEP A - Hepatitis A (Adult > 18 yrs) 06/07/2018, 12/05/2017 Hepatitis B, 20+ yrs 06/07/2018,01/08/20 18,12/05/2017,06/15,10/27/2013,09/12/2013 Pneumococcal Conjugate Vacci ne, 20-valent (Nisdrwm28) 06/22/2023 Pneumococcal Polysaccharide PPV23 (Pneumovax) 01/02/2008 Seasonal [...] Telephone Encounter - Ev Rahman RN - 01/24/2024 3:17 PM EDT [facility] Telephonic Nurse Follow-Up Call [facility] Subprogram: Focused Care Management (3-9 months) Follow Up Call Type: 24 hour follow up Acute issue requiring follow-up call: Other: High Blood sugars. Objective: 01/22/2024 11:29 AM 01/18/2024 12:01 PM 01/08/2024 11:24 AM 01/08/2024 9:34 AM 01/08/2024 9:32 AM VITALS ACROSS ENCOUNTERS BP 160/80 116/76 152/74 156/72 146/74 Pulse 81 90 96 91 94 Weight 67.7 kg 70.6 kg BMI 30.12 kg/m2 31.43 kg/m2 Subjective: Condition Status: Called pt phone-went straight to ./ Current Concerns: Message left for pt to call back to [facility]. Disposition: [facility] Future Visits Scheduled: Future Appointments-next 60 days Date/Time Provider Specialty Dept Phone 01/25/2024 10:30 AM Coordinator, [facility] [phone] 01/30/2024 9:10 AM Pharmacist1, [facility] [phone] 02/04/2024 10:20 AM (Arrive by 10:05 AM) Gregory Rausch MD Family Medicine [phone] 02/13/2024 10:00 AM Jaycee Sorto RN [facility] [phone] 02/21/2024 9:00 AM Pharmacist1, [facility] [phone] 03/06/2024 7:45 AM Ramsey Burnett DO Ophthalmology [phone] 06/03/2024 9:00 AM Janice Atwood MD Psychiatry [phone] 07/17/2024 9:30 AM (Arrive by 9:15 AM) Roberto Carlos Muniz DO Cardiology [phone] 11/27/2024 9:40 AM (Arrive by 9:25 AM) Fidelina Baumann MD Nephrology [phone] Ev Rahman RN documented in this encounter Plan of Treatment Upcoming Encounters Date Type Department Care Team (Late st Contact Info) Description 01/25/2024 10:30 AM EDT Scheduled Telephone [facility], [facility] 132 [facility] [place] [address] Coordinator, [facility] 132 [facility] [place] [address] 01/30/2024 9:10 AM EDT Office Visit Pharmacy, [facility] 200 [facility] [place] [address] Pharmacist1, [facility] 200 [place] [place] [address] 02/04/2024 10:20 AM EDT Office Visit Family Practice [facility] 132 [facility] [place] [address] Gregory Rausch MD 132 [facility] [place] [address] 02/13/2024 10:00 AM EDT Home Visit [facility] at [facility] 132 [facility] [place] [address] Jaycee Sorto RN 132 [place] [address] 02/21/2024 9:00 AM EDT Office Visit Pharmacy, [facility] [address] [facility] [place] [address] Pharmacist1, [facility] 200 [facility] [place] [address] 03/06/2024 7:45 AM EDT Office Visit Ophthalmology, [facility] 132 [facility] [place] [address] Ramsey Burnett DO [address] [place] [address] 06/03/2024 9:00 AM EDT Telemedicine Psychiatry Cris Mercedes [address] [place] [id number] Janice Atwood MD [address] [facility] [place] [address] 07/17/2024 9:30 AM EDT Office Visit Cardiology, [facility] [address] [place] [address] Roberto Carlos Muniz, [address] [place] [address] 11/27/2024 9:40 AM EST Office Visit Nephrology, [facility] [place] [address] Fidelina Baumann MD 200 [facility] [place] [address] Scheduled Procedures Name Priority Associated Diagnoses Date/Ti [...] Additional history exists CKD PHOS USE SMARTSET 41451 06/18/202405/26, 06/16/2023, 06/15/2023, Additional history exists GFR 07/09/2024 01/08/2024, 09/25, 08/02/2023, Additional history exists Diabetic Eye Exam 09/13/2024 09/13/2023, , 09/13/2023, Additional history exists B-12 09/18/2024 09/18/2023, 08/24, 2020, Additional history exists Albumin/Creatinine Ratio 01/07/2025 024, 03/09/2023, 12/22/2022, Additional history exists CKD HGB USE SMARTSET 94540 01/07/202501/07, 01/08/2024, 10/15/2023, Additional history exists TSH [...] this encounter Medical Devices Implanted Type Area Leather Grader Device Identifier Shelf Expiration Date Model / Serial / Lot Cath Roselia Single Lumen - [id number] Implanted:Qty : 1 on 03/12/2008 at OR [facility] Left: Chest [facility] *DO NOT USE* 07/25/2012 21-4053-24 / / [id number] Sut Steel 6 M654g - [id number] Implanted:Qty : 1 on 11/01/2010 at OR [facility] N/A: Chest DO NOT USE M654G / / Sut Steel 6 M654g - [id number] Implanted:Qty : 1 on 11/01/2010 at OR [facility] N/A: Chest DO NOT USE M654G / / Valve Tarsha Aortic [id number] - [id number] Implanted:Qty : 1 on 11/01/2010 at OR [facility] N/A: Heart [employer] DANIEL 05/20/2012 2800TFX-25 / / [id number] Mesh Soft [id number] - [id number] Implanted:Qty : 1 on 10/10/2019 by Gigi Hendrickson MD at OR [facility] N/A: Abdomen CR BARD : DAVOL [id number] 05/21/2024 [id number] / / [id number] Lens 22.5 Sn60wf - [id number] - [id number] Implanted:Qty : 1 on 09/15/2020 by Renaldo Cook, Cece Acosta MD at OR [facility] Right: Eye IVA : SURGICAL [id number] 05/13/2025 SN60 WF.225 / [id number] / [id number] Lens 21.5 Sn60wf - [id number] - [id number] Implanted:Qty : 1 on 12/19/2023 by Ramsey Burnett DO at OR [facility] Left: Eye IVA : SURGICAL 12/03/2024 SN60WF.2 15 / [id number] / documented as of this encounter [...] the patient have Health Care Power of Avionics Manager? No Full Code 10/10/2019 8:40 AM 10/10/2019 5:53 PM This order reflects the patients wishes and were consensually agreed upon. Healthcare Agents on File Name Relationship Healthcare Agent [facility] p Communication Gigi Gutierrez [facility] Adult Child Health Care Repr esentative (appointed verbally by patient or by statute hierarchy) Care Teams Builder Beam Relationship Specialty Start Date End Date Gregory Rausch MD [address] [place] [address] PCP - General Family Medicine 02/12/20 documented as of this encounter
--- OUTSIDE RECORDS SUMMARY | 2024-06-05 14:56 | External Medical Summary | Summary of Care ---
Author Name Unknown Organization [facility] Address [address] [place] [address] Phone [phone] Care Team Providers Care Veterans Contact Representative Name Role Phone Gregory Rausch MD Primary Care Provider [phone] Reason for Visit * Reason Onset Date Comments [facility]: Acute 01/23/2024 Encounter Details Date Type Department Care Team (Late st Contact Info) Description 01/23/2024 Telephone [facility], [facility] 132 [facility] [place] [address] Angelica Welch, RN 132 [facility] [place] [address] [facility]: Acute Allergies Active Allergy [...] hypoglycemia E11.9 100 Tab 3 07/06/2021 Active MZL Shine CleaningTouch Verio w/Device Kit Use up to 4 [...] than 7.0% ([facility]) Use as directed. Use 1 transmitter every 90 days E 11.9 1 Each 3 10/18/2023 Active Additional Information Patient not taking.Reported on 01/22/2024 Dexcom G6 SensorIndications:Ty pe 2 diabetes mellitus with hemoglobin A1c goal of less than 7.0% ([facility]) Use as directed. Use 1 sensor every [...] MEDICATIONS 90 Tablet 2 01/10/2024 Active Nystatin 420958 UNIT/GM External Powder (Nystop)Indications: Candidal intertrigo Apply topically to affected area 3 times a day. Apply to affected areas 60 g 1 01/10/2024 Active Aquaphor External Ointment Apply topically to affected area as needed for Dry Skin. Apply to face 420 g 0 01/10/2024 Active Gabapentin 100 MG Oral Capsule (Neurontin)Indicatio ns:Polyneuropathy associated with underlying disease ([facility]) TAKE 1 CAPSULE BY MOUTH EVERY DAY [...] due to idiopathic cardiomyopathy ([facility]),S/P aortic valve replacement,HTN, goal below 140/80,Dyslipidemia, goal [...] eye 09/28/2020 Coronary artery disease invo lving [place] coronary artery of [place] heart without angina pectoris 12/16/2019 Last [...] 12/21/2016 Diabetes mellitus 01/05/2014 12/21/2016 LEYVA RESEARCH OTHER*[id number] 01/05/2014 12/21/2016 Axillary pain 11/03/2013 12/21/2016 Obesity, [...] cath 09/201008/26/2011 12/21/2016 FOLLOWING SURGERY, UNSPECIFI ED ([facility] BSO 08/25/2011) 08/26/2011 12/21/2016 ADVANCE DIRECTIVE INFORMATION 04/17/2011 12/21/2016 Overview: Yes, Patient instructed to provide copy of advance directive for provider to review and to be scanned into Electronic Medical Record ADVANCE DIRECTIVE INFORMATION 03/01/2011 12/21/2016 Overview: Yes, Patient instructed to provide copy of advance directive for provider to review and to be scanned into Electronic Medical Record [facility] V710 Clinical Trial*[id number] 12/22/2010 04/14/2011 S/P aortic valve replacement 12/01/2010 08/26/2011 S/P AORTIC VALVE REPLACEMENT - #25 pericardial Hernandez valve 11/01/2010 06/28/2018 Overview: Aortic valve replacement with #25 pericardial Hernandez valve, model 2800TFX, serial number [id number] (Dr. Walker) [facility] V710 Clinical Trial*[id number] 10/18/2010 11/21/2010 Body mass index (BMI) of [...] 06/07/2018,01/08/20 18,12/05/2017,06/15,10/27/2013,09/12/2013 Pneumococcal Conjugate Vacci ne, 20-valent ([id number]) 06/22/2023 Pneumococcal Polysaccharide PPV23 (Pneumovax) 01/02/2008 Seasonal [...] Welch RN - 01/23/2024 2:25 PM EDT [facility] Acute Call Date: 01/23/2024 Time: 2:25 PM Name: Jovita Rose : 1960 Caller: caregiver, Stephanie Relationship to Chief Complaint Patient presents with [facility]: Acute HPI: Jovita Rose is a 63 year old female that is calling [facility] to report elevated blood sugar. Was 404 at 1 pm, took 8 units of novolog, then at 2pm was 423. Communication Note Name: Jovita Rose Situation: Jovita Rose is a 63 year old female that is calling [facility] to report elevated blood [...] and to await further instruction. Outreach to [facility] MTM : Zak Self, Pharmacist who will [...] call: Yes, PRN medication(s) novolog-need direction from [facility] Heart failure symptoms: No COPD [...] 2:00 PM EDT Scheduled Telephone [facility] [place], [facility] [address] [place] [address] Coordinator, [facility] [address] [place] [address] 01/25/2024 10:30 AM EDT Scheduled Telephone [facility] [place], [facility] [address] [place] [address] Coordinator, [facility] [address] [place] [address] 01/30/2024 9:10 AM EDT Office Visit Pharmacy, [facility] [place] [address] [place] [address] Pharmacist1, [facility] [address] [place] [address] 02/04/2024 10:20 AM EDT Office Visit Family Practice [facility] 132 [facility] [place] [address] Gregory Rausch MD 132 [facility] [place] [address] 02/13/2024 10:00 AM EDT [facility] Visit [facility], [facility] 132 [facility] [place] [address] Jaycee Sorto, RN 132 [facility] [place] [address] 02/21/2024 9:00 AM EDT Office Visit Pharmacy, [facility] 200 [facility] [place] [address] Pharmacist1, [facility] 200 [facility] [place] [address] 03/06/2024 7:45 AM EDT Office Visit Ophthalmology, [facility] 132 [facility] [place] [address] Ramsey Burnett, DO [address] [place] [address] 06/03/2024 9:00 AM EDT Telemedicine Psychiatry [facility] [address] [place] [phone] Janice Atwood MD [address] [place] [address] 07/17/2024 9:30 AM EDT Office Visit Cardiology, [facility] 132 [facility] [place] [address] Roberto Carlos Muniz, DO 132 [facility] [place] [address] 11/27/2024 9:40 AM EST Office Visit Nephrology, [facility] [address] [place] [address] Fidelina Baumann MD 200 [place] [address] Scheduled Procedures Name Priority Associated Diagnoses Date/Ti [...] Additional history exists CKD PHOS USE SMARTSET 41230 06/18/202405/26, 06/16/2023, 06/15/2023, Additional history exists GFR 07/09/2024 01/08/2024, 09/25, 08/02/2023, Additional history exists Diabetic Eye Exam 09/13/2024 09/13/2023, , 09/13/2023, Additional history exists B-12 09/18/2024 09/18/2023, 08/24, 2020, Additional history exists Albumin/Creatinine Ratio 01/07/2025 024, 03/09/2023, 12/22/2022, Additional history exists CKD HGB USE SMARTSET 25966 01/07/202501/07, 01/08/2024, 10/15/2023, Additional history exists TSH [...] this encounter Medical Devices Implanted Type Area Film Splicer Device Identifier Shelf Expiration Date Model / Serial / Lot Cath Roselia Single Lumen - [id number] Implanted:Qty : 1 on 03/12/2008 at OR [facility] Left: Chest [facility] *DO NOT USE* 07/25/2012 21-4053-24 / / [id number] Sut Steel 6 M654g - [id number] Implanted:Qty : 1 on 11/01/2010 at OR [facility] N/A: Chest DO NOT USE M654G / / Sut Steel 6 M654g - [id number] Implanted:Qty : 1 on 11/01/2010 at OR [facility] N/A: Chest DO NOT USE M654G / / Valve Tarsha Aortic [id number] - [id number] Implanted:Qty : 1 on 11/01/2010 at OR [facility] N/A: Heart [employer] DANIEL 05/20/2012 2800TFX-25 / / [id number] Mesh Soft [id number] - [id number] Implanted:Qty : 1 on 10/10/2019 by Gigi Hendrickson MD at [place] [facility] N/A: Abdomen CR BARD : DAVOL [id number] 05/21/2024 [id number] / / [id number] Lens 22.5 Sn60wf - [id number] - [id number] Implanted:Qty : 1 on 09/15/2020 by Renaldo Cook, Cece Acosta MD at OR [facility] Right: Eye IVA : SURGICAL [id number] 05/13/2025 SN60 WF.225 / [id number] / [id number] Lens 21.5 Sn60wf - [id number] - [id number] Implanted:Qty : 1 on 12/19/2023 by Ramsey Burnett DO at OR [facility] Left: Eye IVA : SURGICAL 12/03/2024 SN60WF.2 15 / [id number] / documented as of this encounter [...] patient have Health Care Power of Senior Quality Analyst? No Full Code 10/10/2019 8:40 AM 10/10/2019 5:53 PM This order reflects the patients wishes and were consensually agreed upon. Healthcare Agents on File Name Relationship Healthcare Agent Relationstali p Communication Gigi Rose Adult Child Health Care Repr esentative (appointed verbally by patient or by statute hierarchy) Care Teams Veterans Contact Representative Relationship Specialty Start Date End Date Gregory Rausch MD [address] [place] [address] PCP - General Family Medicine 02/12/20 documented as of this encounter
--- OUTSIDE RECORDS SUMMARY | 2024-06-05 14:56 | External Medical Summary | Summary of Care ---
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 [facility] Type Chronic Disease Management Chronic Disease Management Hypertension Alarm Settings Standard per protocol Reason for Visit * Reason Comments Hospital Follow-Up Chronic Kidney Disease (CKD) Hypertension Encounter Details Date Type Department Care Team (Late st Contact Info) Description 01/08/2024 9:20 AM EDT Office Visit Nephrology, [facility] [address] [place] [address] Jasvir Sun MD [address] [place] [address] Uncontrolled hypertension*; History of acute renal failure; History of electrolyte imbalance; White coat syndrome with diagnosis of hypertension Allergies Active Allergy Reactions Criticality Noted Date Comments Adhesive Tape 07/02/2017 Can tolerate band-aids Glycerin Other (Please comment) 03/12/2008 Topical agents with glycein-burning & itching Lactose 12/09/2014 Dairy - gas Lisinopril Cough 01/21/2010 Monosodium Glutamate Edema Other 03/12/2008 Hands and feet Penicillins Rash 11/14/2007 documented as of this encounter (statuses as of 01/19/2024) Medications Medication Sig Dispensed Refills Start Date [...] 3 days 30 Each 3 3 Active Additional Information Patient not taking.Reported on 01/08/2024 Omnipod 5 G6 Intro (Gen 5) Kit Use as directed. Use to delivery insulin via insulin pump 1 Kit 0 3 Active Additional Information Patient not taking.Reported on 01/08/2024 OneTouch Verio In Vitro Strip (Glucose Blood) Use up to 4 times a day E11.9 100 Strip 11 3 Active Potassium Chloride [facility] 10 MEQ Oral Tablet Extended ReleaseIndications:Ac cabazon on chronic heart failure with preserved ejection fraction (HFpEF) (HCC) Take 1 Tablet by mouth in the morning and 1 Tablet before bedtime. 180 Tablet 3 3 Active Venelex External Ointment Apply topically to affected area 2 times a day. 0 3 Active Gaviscon 80-14.2 MG Oral Tablet Chewable (Alum Hydroxide-Mag Trisilicate) Take by mouth as needed. 0 Active metFORMIN HCl 1000 MG Oral Tablet (Glucophage) Take 1 Tablet by mouth 2 times a day with morning and evening meals. 180 Tablet 3 3 Active Additional Information Patient not taking.Reported on 12/03/2023 Insulin Aspart 100 UNIT/ML Injection Solution (NovoLOG)Indications: Type 2 diabetes mellitus with hemoglobin A1c goal of less than 7.0% ([facility]) Use up to 50 units per day in Omnipod. 5 Each 3 3 Active Additional Information Patient not taking.Reported on 01/08/2024 BD Insulin Syringe 25G X 1" 1 ML (Insulin Syringe-Needle U-100) Use daily with omnipod as directed DX E11.9 100 Each 5 3 Active Curity Alcohol Swabs Pad Use as directed as needed 200 Each 5 3 Active traZODone HCl 100 MG Oral Tablet [...] E 11.9 9 Each 3 4 Active DULoxetine HCl 20 MG Oral Capsule Delayed Release Particles (Cymbalta) Take 1 Capsule by mouth in the morning. 30 Capsule 5 4 Active CPAP every night at bedtime. 0 Active One-A-Day Womens 50 Plus Oral Tablet Take 1 Tablet by mouth in the morning. 0 Active prednisoLONE Acetate 1 % Ophthalmic Suspension (Pred Forte) Instill 1 Drop into both eyes in the morning and 1 Drop at noon and 1 Drop in the evening and 1 Drop before bedtime. 5 mL 1 4 Active Diclofenac Sodium 0.1 % Ophthalmic Solution (Voltaren) Instill 1 Drop into the left eye in the morning and 1 Drop at noon and 1 Drop in the evening and 1 Drop before bedtime. 2.5 mL 1 4 Active Probiotic (Lactobacillus) Oral Capsule Take 2 Capsules by mouth in the morning. 0 Active Magnesium Oxide 400 (240 Mg) MG Oral Tablet (Mag-Ox) One tablet by mouth daily in the morning 90 Tablet 3 3 01/09/20 24 Discontinu ed(Refill) Fluticasone Propionate 50 MCG/ACT Nasal Suspension (Flonase)Indications: Dizziness Administer 2 Sprays into each nostril in the morning. 16 g 3 3 01/09/20 24 Discontinu ed(Refill) Clopidogrel Bisulfate 75 MG Oral Tablet (pLAVix) TAKE 1 TABLET (75 MG) BY MOUTH IN THE MORNING 90 Tablet 2 3 01/09/20 24 Discontinu ed(Refill) Levothyroxine Sodium 75 MCG Oral Tablet (Levoxyl)Indications: Hypothyroidism TAKE 1 TAB BY MOUTH DAILY FIRST THING IN AM, AT LEAST 30 MIN PRIOR TO BREAKFAST OR OTHER MEDICATIONS 90 Tablet 2 3 01/09/20 24 Discontinu ed(Refill) NovoLOG FlexPen 100 UNIT/ML Subcutaneous Solution Pen-injector (insulin aspart) Injected under the skin BEFORE MEALS, 3 times per day: 2 units per 50 when glucose is over 200 units. TDD: 50. ICD10: E11.9. 15 mL 2 3 01/10/20 24 Discontinu ed(Patient preference /discontin uation) Tresiba FlexTouch 200 UNIT/ML Subcutaneous Solution Pen-injector (Insulin Degludec)Indications: Type 2 diabetes mellitus with hemoglobin A1c goal of less than 7.0% ([facility]),Type 2 diabetes mellitus with stage 3a chronic kidney disease, with long-term current use of insulin ([facility]) Inject 30 Units under the skin at bedtime. 6 mL 2 3 01/09/20 24 Discontinu ed(Refill) BD Pen Needle Short U/F 31G X 8 MMIndications:Type 2 diabetes mellitus with hemoglobin A1c goal of less than 7.0% ([facility]),Type 2 diabetes mellitus with stage 3a chronic kidney disease, with long-term current use of insulin ([facility]) Use with insulin 4 times daily 400 Each 3 3 01/09/20 24 Discontinu ed(Refill) Atorvastatin Calcium 40 MG Oral Tablet (Lipitor)Indications: Heart failure, systolic, due to idiopathic cardiomyopathy ([facility]),S/P aortic valve replacement,HTN, goal below 140/80,Dyslipidemia, goal LDL below 70 TAKE 1 TABLET BY MOUTH DAILY. TO PREVENT HEART ATTACK/STROKE, PROTECT KIDNEY, AND CHOLESTEROL 90 Tablet 1 3 01/10/20 24 Discontinu ed(Refill) Meclizine HCl 25 MG Oral Tablet (Antivert)Indications :Muscle tension headache TAKE 2 TABLETS BY MOUTH TWICE A DAY 360 Tablet 3 3 01/10/20 24 Discontinu ed(Patient preference /discontin uation) Torsemide 10 MG Oral Tablet (Demadex) Take 1 Tablet by mouth in the morning. 0 01/09/20 Discontinu ed(Medicat ion/Dose Changed) Metoprolol Tartrate 25 MG Oral Tablet (Lopressor) Take 1 Tablet by mouth in the morning and 1 Tablet before bedtime. 60 Tablet 5 4 01/10/20 24 Discontinu ed(Patient preference /discontin uation) Ammonium Lactate 12 % External Lotion (Lac-Hydrin) Apply to both feet once daily. 400 g 3 4 01/10/20 24 Discontinu ed(Patient preference /discontin uation) Nystatin 229046 UNIT/GM External Powder (Nystop)Indications:C andidal intertrigo Apply topically to affected area 3 times a day. Apply to affected areas 60 g 1 4 01/09/20 24 Discontinu ed(Refill) Aquaphor External Ointment Apply topically to affected area as needed for Dry Skin. Apply to face 420 g 0 4 01/09/20 24 Discontinu ed(Refill) Ozempic (2 MG/DOSE) 8 MG/3ML Subcutaneous Solution Pen-injector (Semaglutide (2 MG/DOSE))Indications: Type 2 diabetes mellitus with hemoglobin A1c goal of less than 7.0% ([facility]),Type 2 diabetes mellitus with diabetic mononeuropathy, with long-term current use of insulin (HCC),Type 2 diabetes mellitus with both eyes affected by mild nonproliferative retinopathy and macular edema, with long-term current use of insulin ([facility]),Type 2 diabetes mellitus with stage 3a chronic kidney disease, with long-term current use of insulin ([facility]) Inject 2 mg under the skin once a week. 9 mL 3 4 01/09/20 24 Discontinu ed(Refill) Gabapentin 100 MG Oral Capsule (Neurontin)Indication s:Polyneuropathy associated with underlying disease (HCC) TAKE 1 CAPSULE BY MOUTH EVERY DAY IN THE MORNING , AT NOON, AND BEFORE BEDTIME 90 Capsule 0 4 01/09/20 24 Discontinu ed(Refill) Fidaxomicin 200 MG Oral Tablet (Dificid) Take 1 Tablet by mouth in the morning and 1 Tablet before bedtime. Do all this for 10 days. 20 Tablet 0 4 01/15/20 24 Discontinu ed(Refill) documented as of this encounter (statuses as of 01/19/2024) Active Problems Problem Noted Date Diagnosed Date Hypertensive kidney disease with stage 3a chronic kidney disease 11/05/2023 Thrombocytopenia 09/12/2023 Obesity, Class I, BMI 30.0-34.9 (see actual BMI) 07/31/2023 Splenic infarct 06/14/2023 Type 2 diabetes mellitus wit h diabetic peripheral angiopathy without gangrene 03/01/2023 Mood disorder 03/01/2023 Type 2 diabetes mellitus wit h [...] eye 09/28/2020 Coronary artery disease invo lving caddo coronary artery of caddo heart without angina pectoris 12/16/2019 Last Assessment [...] as of this encounter (statuses as of 01/19/2024) Resolved Problems Problem Noted Date Diagnosed Date [...] 12/21/2016 Diabetes mellitus 01/05/2014 12/21/2016 LEYVA RESEARCH OTHER*[id number] 01/05/2014 12/21/2016 Axillary pain 11/03/2013 12/21/2016 Obesity, [...] cath 09/201008/26/2011 12/21/2016 FOLLOWING SURGERY, UNSPECIFI ED ([facility] BSO 08/25/2011) 08/26/2011 12/21/2016 ADVANCE DIRECTIVE [...] Medical Record [facility] V710 Clinical Trial*[id number] 12/22/2010 04/14/2011 S/P aortic valve replacement 12/01/2010 08/26/2011 S/P AORTIC VALVE REPLACEMENT - #25 pericardial Mc valve 11/01/2010 06/28/2018 Overview: Aortic valve replacement with #25 pericardial Mc valve, model [id number], serial number [id number] (Dr. Walker) [facility] V710 Clinical Trial*[id number] 10/18/2010 11/21/2010 Body mass index (BMI) of [...] as of this encounter (statuses as of 01/19/2024) Immunizations Name Administration Dates Next Due COVID-19 mRNA, LNP-s, No Pre serve, 2-Dose Series (Moderna) 10/25/2021,02/16/2021,01/18/2021 HEP A - Hepatitis A (Adult > 18 yrs) 06/07/2018, 12/05/2017 Hepatitis B, 20+ yrs 06/07/2018,01/08/20 18,12/05/2017,06/15,10/27/2013,09/12/2013 Pneumococcal Conjugate Vacci ne, 20-valent ([id number]) 06/22/2023 Pneumococcal Polysaccharide PPV23 (Pneumovax) 01/02/2008 Seasonal [...] money to get more. Never true 07/26/2023 Education Answer Date Recorded What is the [...] Sign Reading Time Taken Comments Blood Pressure 156/72 01/08/2024 9:34 AM EDT Pulse 91 01/08/2024 9:34 AM EDT Temperature 36.5 C (97.7 F) 01/08/2024 9:28 AM ED T Respiratory Rate 20 01/08/2024 9:28 AM EDT Oxygen Saturation 97% 01/08/2024 9:28 AM EDT Inhaled Oxygen Concentration - - Weight 71.2 kg (156 lb 14.4 oz) 01/08/2024 9:28 AM EDT Height - - Body Mass Index 31.67 12/19/2023 12:36 PM EDT documented in this [...] No 11/06/2017 documented as of this encounter Patient Instructions * Patient Instructions* Jasvir Sun MD - 01/08/2024 10:30 AM EDT -no medication changes for today -will enroll you in remote monitoring BP program >> follow good technique for BP monitoring using handout --avoid medicines like aleve, advil, ibuprofen, aspirin more than 81 mg daily and other NSAIDS which are not good for kidney patients. Take only tylenol (acetaminophen) up to 2000 mg daily as needed for pain or as directed by your primary care provider. -labs today after cardiology appointment -no change to gatorade or fluid intake for now -keep weighing yourself daily documented in this encounter Progress Notes * Jasvir Sun MD - 01/08/2024 10:04 AM EDT NEPHROLOGY CLINIC NOTE [facility], [facility] [address] [place], [place] [address] [address] 01/08/2024, 10:04 AM Patient Name: Jovita Rose BACKGROUND: 63 year old female presents for f/u of [facility] c/s oct neph for low Na and metabolic alkalosis. 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 Also with benign paroxysmal vertigo due to bilateral vestibular disorder that usually resolves with good self-care such as rest and eating well. Patient also has had several hospital admissions in 2022 and early 2023: -May 2023 presented to [facility] with abdominal pain melena and then was transferred to [place] where she was from June 06 to with concern for pneumoperitoneum. She underwent 2 ex lap procedures finding no evidence of perforation. Hospital course at [place] complicated by C diff infection, COVID-19 infection, splenic infarcts. Discharge to [facility] June 22, 2023 -June 2023 admitted to [facility] in [place] from June 25 to with melena and coffee-ground emesis needing 4 units of packed red cells and with endoscopy showing multiple transverse left sigmoid colon ulcers compatible with ischemic etiology. Patient was discharged to a [facility] and then in late August early September she was discharged home Her baseline creatinine is somewhat difficult to pin down as of October 2023 since there are few outpatient data points. It appears however that baseline is about 0.9-1.0 creatinine for the past fewyears with an estimated GFR of about 70. She presented [facility] October 27 2023 with sodium 121 blood glucose 380 potassium 2.3, bicarb 39, creatinine 1.3, ionized calcium 0.96. ABG on 2 L showed a pH of 7.63 (sic), pCO2 41, PO2 116, bicarb 43. Her hemoglobin was 12. The patient had hypovolemia hyponatremia and metabolic alkalosis both worsened significantly by metolazone as and with good response to IV fluids. She had ongoing issues with C diff and tested positive for it on October 30. On November 01, 5 days after admission she was still doing well even after several days with no diuretics. She was discharged and then readmitted November 10 to the [facility] with C diff diarrhea and generalized weakness TODAY 01/08/2024: Acc by chaim Borwn today. No labs since hospital dc/ Drinks gatorade 32 oz daily; Dr Abraham advised to drink gatorade daily to avoid dehydration. Feels much improved "comes to life" w/ taking gatorade. Weight fluctuates 150-155 lb. Checks bp at home on wrist cuff; willing to get upper arm cuff. Endorses white coat HTN; uses computer readily REVIEW OF SYSTEMS: No F/C, unintended wt loss or gain: Weight stable lb, energy level and appetite better Still occasional BONILLA managed w/ tylenol No palpitations, angina, orthopnea, LE edema (but is salt sensitive); in past had issues w/ orthopnea/palpitations No cough, wheeze; denies dyspnea No N/V/D/C/abd pain No dysuria, hematuria, nocturia >2X; no new/worrisome voiding sx; UTI have settled No rash or generalized itch No focal joint/muscle aches apart from R knee hurting a lot; did fall on it a few weeks ago; butt also sore after fall No inappropriate bleeding or bruising No tremor, seizures, BL wrist weakness and legs sometimes weak > feel like jelly w/ walking and can't do stairs; last summer was able to do stairs No presyncopal or orthostatic symptoms; did fall a few weeks ago going through into a store Current Outpatient Medications Medication Sig Dispense Refill aspirin enteric coated 81 MG TBEC Take 1 Tab by mouth daily. 90 Tab 11 AZO Cranberry 250-30 MG Oral Tablet Take 1 Tablet by mouth in the morning. BD Glucose 5 GM Oral Tablet Chewable (Glucose) 3 every 15 minutes until glucose is > 100 mg/dL for hypoglycemia E11.9 100 Tab 3 m2M [employer] Verio w/Device Kit Use up to 4 times a day E11.9 1 Kit 0 [employer] DelIntelliMat Lancets 33G TEST 4 TIMES DAILY DIRECTED, E11.9 400 Each 3 Melatonin 10 MG Oral Capsule Take 1 Capsule by mouth at bedtime. Magnesium Oxide 400 (240 Mg) MG Oral Tablet (Mag-Ox) One tablet by mouth daily in the morning 90 Tablet 3 Fluticasone Propionate 50 MCG/ACT Nasal Suspension (Flonase) Administer 2 Sprays into each nostril in the morning. 16 g 3 Clopidogrel Bisulfate 75 MG Oral Tablet [...] Inject 30 Unitsunder the skin at bedtime. (Patient taking differently: Inject 30 Units under the skin in the morning.) 6 mL 2 BD Pen Needle Short U/F 31G X 8 MM Use with insulin 4 times daily 400 Each 3 Gaviscon 80-14.2 MG Oral Tablet Chewable (Alum Hydroxide-Mag Trisilicate) Take by mouth as needed. Atorvastatin Calcium 40 MG Oral Tablet (Lipitor) TAKE 1 TABLET BY MOUTH DAILY. TO PREVENT HEART ATTACK/STROKE, PROTECT KIDNEY, AND CHOLESTEROL (Patient taking differently: Take 1 Tablet by mouth in the morning.) 90 Tablet 1 Meclizine HCl 25 MG Oral Tablet (Antivert) TAKE 2 TABLETS BY MOUTH TWICE A DAY 360 Tablet 3 BD Insulin Syringe 25G X 1" 1 ML (Insulin Syringe-Needle U-100) Use daily with omnipod as directed DX E11.9 100 Each 5 Curity Alcohol Swabs Pad Use as directed as needed 200 Each 5 Metoprolol Tartrate 25 MG Oral Tablet (Lopressor) Take 1 Tablet by mouth in the morning and 1 Tablet before bedtime. 60 Tablet 5 Ammonium Lactate 12 % External Lotion (Lac-Hydrin) Apply to both feet once daily. 400 g 3 Nystatin 625322 UNIT/GM External Powder (Nystop) Apply topically to affected area 3 times a day. Apply to affected areas 60 g 1 Aquaphor External Ointment Apply topically to affected area as needed for Dry Skin. Apply to face 420 g 0 Ozempic (2 MG/DOSE) 8 MG/3ML Subcutaneous Solution Pen-injector (Semaglutide (2 MG/DOSE)) Inject 2 mg under the skin once a week. (Patient taking differently: Inject 2 mg under the skin once a week.)9 mL 3 traZODone HCl 100 MG Oral Tablet (Desyrel) Take 1 Tablet by mouth at bedtime. Dexcom G6 Transmitter Use as directed. Use 1 transmitter every 90 days E 11.9 1 Each 3 Dexcom G6 Sensor Use as directed. Use 1 sensor every 10 days E 11.9 9 Each 3 Gabapentin 100 MG Oral Capsule (Neurontin) TAKE 1 CAPSULE BY MOUTH EVERY DAY IN THE MORNING , AT NOON, AND BEFORE BEDTIME 90 Capsule 0 DULoxetine HCl 20 MG Oral Capsule Delayed [...] 2 Capsules by mouth in the morning. Omnipod 5 G6 Pod (Gen 5) Use as directed. Use 1 pod every 3 days (Patient not taking: Reported on 01/08/2024) 30 Each 3 Omnipod 5 G6 Intro (Gen 5) Kit Use as directed. Use to delivery insulin via insulin pump (Patient not taking: Reported on 01/08/2024) 1 Kit 0 Venelex External Ointment Apply topically to affected area 2 times a day. (Patient not taking: Reported on 08/03/2023) metFORMIN HCl 1000 MG Oral Tablet (Glucophage) Take 1 Tablet by mouth 2 times a day with morning and evening meals. (Patient not taking: Reported on 12/03/2023) 180 Tablet 3 Torsemide 10 MG Oral Tablet (Demadex) Take 1 Tablet by mouth in the morning. (Patient not taking: Reported on 12/03/2023) Insulin Aspart 100 UNIT/ML Injection Solution (NovoLOG) Use up to 50 units per day in Omnipod. (Patient not taking: Reported on 01/08/2024) 5 Each 3 No current facility-administered medications for this visit. Review of patient's allergies indicates: Allergen Reactions Adhesive Tape Can tolerate band-aids Glycerin Other (Please comment) Topical agents with glycein-burning & itching Lactose Dairy - gas Lisinopril Cough Monosodium Glutamate Edema Other Hands and feet Pcn [Penicillins] Rash PHYSICAL EXAMINATION: BP Readings from Last 6 Encounters: 01/08/24 156/72 01/02/24 132/62 12/19/23 121/61 12/03/23 132/68 11/21/23 118/64 11/18/23 122/68 Wt Readings from Last 6 Encounters: 01/08/24 71.2 kg (156 lb 14.4 oz) 01/02/24 70 kg (154 lb 6.4 oz) 12/19/23 68.9 kg (152 lb) 12/03/23 69 kg (152 lb 3.2 oz) 11/21/23 70.8 kg (156 lb) 10/15/23 72.6 kg (160 lb) Pulse Readings from Last 6 Encounters: 01/08/24 91 01/02/24 88 12/19/23 105 12/03/23 92 11/21/23 72 11/18/23 76 NAD, oriented x 3, ambulatory w/ cane Normocephalic, atraumatic, eomi nonicteric sclerae MMM Supple neck RRR w/o m/g/r; no edema CTAB w/ reasonable air mvt NT abd, +BS, soft No cyanosis or clubbing No rash No tremor, focal or global weakness; fluent speech, goodhistorian LABS: Recent Labs Units 10/15/23 1156 08/02/23 0000 07/31/23 1134 06/20/23 0421 06/19/23 0846 SODIUM - [facility] mmol/L 131* -- 135 136 135 POTASSIUM - [facility] mmol/L 3.6 -- 4.0 3.7 4.1 POTASSIUM-OUTSIDE LAB MMOL/L -- 3.0* -- -- -- CHLORIDE - [facility] mmol/L 86* -- 91* 107 106 CO2 - [facility] mmol/L -- 19* 19* EGFR-OUTSIDE LAB ML/MIN -- 77.9 -- -- -- BUN - [facility] mg/dL 27* -- 7 4* 4* CREATININE - [facility] mg/dL 1.3* -- 0.8 0.6 0.7 CREATININE-OUTSIDE LAB MG/DL -- 0.80 -- -- -- ESTIMATED GLOMERULAR FILTRATION RATE - [facility] mL/min 44* -- 86 >90 >90 November 16, 2023 outside labs Sodium 136, potassium 4.6, chloride 101, bicarb 30, BUN 15, creatinine 1 Recent Labs Units 10/15/23 1156 07/31/23 1134 06/20/23 0421 06/19/23 0846 HGB g/dL 12.3 13.0 9.6* 10.7* FERRITIN - [facility] ng/mL -- -- -- 428* Recent Labs Units 10/15/23 1156 07/31/23 1134 06/20/23 0421 06/19/23 0846 06/18/23 1237 06/16/23 0522 06/15/23 0434 06/14/23 0659 CALCIUM - [facility] mg/dL 9.8 9.5 8.1* 8.2* 8.1* 7.5* 7.8* 7.7* PHOSPHORUS - [facility] mg/dL -- -- -- -- 2.6 2.4* 2.1* 2.4* Recent Labs Units 09/18/23 0932 07/31/23 1134 04/09/23 1344 02/13/23 1038 HEMOGLOBIN A1C - [facility] % 7.5* 6.3* 7.9* 9.2* Recent Labs Units 03/09/23 1244 12/22/22 1228 ALBUMIN/CREATININE RATIO, HIDE mg/g Creat Uninterpretable Albumin/Creatinine ratio due to very low albumin and creatinine values. Uninterpretable Albumin/Creatinine ratio due to very low albumin and creatinine values. Recent Labs Units 06/25/23 1801 06/12/23 1243 03/29/23 1338 03/09/23 1244 02/06/23 1412 CLARITY, URINE - [facility] -- Clear Slightly Cloudy* Slightly Cloudy* Clear GLUCOSE, URINE - [facility] mg/dL -- 250* Negative 100* >=1000* GLUCOSE, UA - OUTSIDE LAB 2+* -- -- -- -- BILIRUBIN, URINE - [facility] -- Negative Negative Negative Negative KETONE, URINE - [facility] mg/dL -- 15* Negative Negative Negative SPECIFIC GRAVITY, URINE - [facility] -- 1.021 1.010 1.010 1.015 BLOOD, URINE - [facility] -- Small* Negative Trace* Negative BLOOD, UA - OUTSIDE LAB 2+* -- -- -- -- PH, URINE - [facility] Units -- 6.0 6.0 5.5 6.0 PROTEIN, URINE - [facility] mg/dL -- 30* Negative Negative Negative UROBILINOGEN, URINE - [facility] mg/dL -- Normal 0.2 0.2 0.2 UROBILINOGEN, UA - OUTSIDE LAB Normal -- -- -- -- NITRITE, URINE - [facility] -- Negative Negative Negative Negative NITRITE, UA - OUTSIDE LAB Negative -- -- -- -- ESTERASE, URINE - [facility] -- Trace* Small* Small* Trace* BACTERIA, URINE - [facility] /HPF -- 26-50* 151-200* 26-50* >200* WBC, URINE - [facility] /HPF -- 6-9* 10-19* 10-19* 10-19* RBC, URINE - [facility] /HPF -- 20-29* 0-2 0-2 0-2 ASSESSMENT AND PLAN: Uncontrolled hypertension (Primary) - REMOTE PATIENT MONITORING REFERRAL - URINALYSIS WITH MICROSCOPIC EXAM - ALBUMIN / CREATININE RATIO, URINE - COMPREHENSIVE METABOLIC PANEL - TSH WITH FREE T4 IF INDICATED; Future; Expected date: 01/08/2024 History of acute renal failure - COMPREHENSIVE METABOLIC PANEL - CBC WITH WBC DIFFERENTIAL History of electrolyte imbalance - COMPREHENSIVE METABOLIC PANEL - OSMOLALITY, SERUM - OSMOLALITY, URINE - ELECTROLYTES, RANDOM URINE White coat syndrome with diagnosis of hypertension - REMOTE PATIENT MONITORING REFERRAL Follow-up: Return in about 6 months (around 07/09/2024). | Check-out note: Waitlist Labs at [facility] Uncontrolled hypertension today with blood pressures in the 140s to 150 systolic. -evaluate for end-organ damage -remote blood pressure monitoring program -not currently on torsemide and may want to consider resuming -continue metoprolol dose appropriate Contineu daily weights History of HEIDY though it looks as though on November 16 labs her renal function had recovered -update labs -potassium supplement for now acceptable History of hyponatremia from hypovolemia and history of metabolic alkalosis as well -update labs -continue to hold diuretics Patient Instructions -no medication changes for today -will enroll you in remote monitoring BP program >> follow good technique for BP monitoring using handout --avoid medicines like aleve, advil, ibuprofen, aspirin more than 81 mg daily and other NSAIDS which are not good for kidney patients. Take only tylenol (acetaminophen) up to 2000 mg daily as needed for pain or as directed by your primary care provider. -labs today after cardiology appointment -no change to gatorade or fluid intake for now -keep weighing yourself daily I spent a total of 40-54 minutes (exact time 40 mins) on the date of service in preparation, delivery, and documentation of the care provided to Jovita Rose excluding any time spent in the performance of separately billed services. Jasvir Sun MD Nephrology, [address] [address] CC: Ref: DEON RAUSCH[[id number]] [address] [facility] [place] [address] (office) [phone] (fax) PCP: DEON RAUSCH [address] [place] [id number] [phone] This chart was completed in part utilizing [employer] Speech Voice Recognition Software. Randomword insertions, pronoun errors, and incomplete sentences are an occasional consequence of this system due to software limitations, and ambient noise. Any questions or concerns about the content, text, or information contained within the body of this dictation should be directly addressed to the provider for clarification. documented in this encounter Nursing Notes * Ruth Moreno LPN - 01/08/2024 9:24 AM EDT Patient identified by verbal name and date of .Hospital follow up On numerous antibiotics for C Diff Pt was seen inpatient [facility] in [place] with abd surgery Last labs 10/15/23 Denies SOB or lower extremity edema documented in this encounter Miscellaneous Notes * Addendum Note - Jasvir Sun MD - 01/19/2024 4:43 PM EDTAddended by: JASVIR SUN on: 01/19/2024 04:43 PM Modules accepted: Level of Service * Result Encounter Note - Jasvir Sun MD - 01/09/2024 4:23 PM EDT Kidney labs stable; continue same. documented in this encounter Plan of Treatment Upcoming Encounters Date Type Department Care Team (Late st Contact Info) Description 01/22/2024 11:00 AM EDT Home Visit Care Coordination and Integration [address] [place] [address] Angelica Navas, Community Health Hardware Developer [address] [place] [address] 01/24/2024 2:45 PM EDT Office Visit Ophthalmology, [facility] [address] [place] [address] Ramsey Burnett DO [address] [place] [address] 01/30/2024 9:10 AM EDT Office Visit Pharmacy, [facility] [address] [place] [id number] Pharmacist1, [facility] [address] [facility] [place] [address] 02/04/2024 10:20 AM EDT Office Visit Family Practice [facility] [address] [address] Deon Rausch MD [address] [place] [address] 02/13/2024 10:00 AM EDT Home Visit Adry at [place], [facility] [address] [address] Jaycee Sorto, RN [address] [address] 02/21/2024 9:00 AM EDT Office Visit Pharmacy, [facility] [address] [facility] [place] [address] Pharmacist1, [facility] [address] [facility] [place] [address] 06/03/2024 9:00 AM EDT Telemedicine Psychiatry, [place] [address] [place] [address] Janice Atwood MD [address] [place] [address] 07/17/2024 9:30 AM EDT Office Visit Cardiology, [facility] [address] [place] [address] Roberto Carlos Muniz, [address] [place] [address] 11/27/2024 9:40 AM EST Office Visit Nephrology, [facility] [address] [facility] [place] [address] Jasvir Sun MD [address] [facility] [place] [address] Scheduled Procedures Name Priority Associated Diagnoses Date/Ti me EXTRACAPSULAR CATARACT REMOV AL COMPLEX WITH IOL Cataract COLONOSCOPY FLEXIBLE PROXIMAL DIAGNOSTIC Recall History of colon polyps ESOPHAGOGASTRODUODENOSCOPY ( EGD), FLEXIBLE, TRANSORAL, DIAGNOSTIC Recall Cirrhosis (HCC) COLONOSCOPY FLEXIBLE PROXIMAL DIAGNOSTIC Recall Personal history of colonic polyps Scheduled Referrals Name Type Priority Associated Diagnoses Orde r Schedule REMOTE PATIENT MONITORING REFERRAL Referral Within 10 days (routine) Uncontrolled hypertension White coat syndrome with diagnosis of hypertension Ordered: 01/08/2024 Health Maintenance Due Date Last Done Comments HIV Screening 1975 Cologuard 12/18/2003 Fecal Occult Blood Test 12/18/2003 Diabetic Foot Exam 2021 2020, 0 12/05/2018, 12/05/2017, Additional history exists COVID-19 Vaccine (4 - 2023-24 season) 2023 10/25/2021, 02/16/2021, 01/18/2021 DXA Scan 12/18/2023 01/12/2009 Depression, Most Recent Score >= 10 (will fire each visit until score < 10) 12/26/2023 12/25/2023 HbA1c 03/19/2024 09/18/2023, 1103/2023, 04/09/2023, Additional history exists CKD PHOS USE SMARTSET 47701 06/18/202405/26, 06/16/2023, 06/15/2023, Additional history exists GFR 07/09/2024 01/08/2024, 09/25, 08/02/2023, Additional history exists Diabetic Eye Exam 09/13/2024 09/13/2023, , 09/13/2023, Additional history exists B-12 09/18/2024 09/18/2023, 08/24, 2020, Additional history exists Albumin/Creatinine Ratio 01/07/2025 024, 03/09/2023, 12/22/2022, Additional history exists CKD HGB USE SMARTSET 56161 01/07/202501/07, 01/08/2024, 10/15/2023, Additional history exists TSH [...] this encounter Medical Devices Implanted Type Area Cake Knocker Device Identifier Shelf Expiration Date Model / Serial / Lot Cath Roselia Single Lumen - [id number] Implanted:Qty : 1 on 03/12/2008 at OR [facility] Left: Chest [facility] *DO NOT USE* 07/25/2012 [id number] / / [id number] Sut Steel 6 M654g - [id number] Implanted:Qty : 1 on 11/01/2010 at OR [facility] N/A: Chest DO NOT USE M654G / / Sut Steel 6 M654g - [id number] Implanted:Qty : 1 on 11/01/2010 at OR [facility] N/A: Chest DO NOT USE M654G / / Valve Tarsha Aortic [id number] - [id number] Implanted:Qty : 1 on 11/01/2010 at OR [facility] N/A: Heart [employer] D[employer]EL 05/20/2012 [id number] / / [id number] Mesh Soft 08f28tp - [id number] Implanted:Qty : 1 on 10/10/2019 by Gigi Hendrickson MD at [place] [facility] N/A: Abdomen CR BARD : DAVOL [id number] 05/21/2024 [id number] / / [id number] Lens 22.5 Sn60wf - [id number] - [id number] Implanted:Qty : 1 on 09/15/2020 by Cece Roland MD at OR [facility] Right: Eye IVA : SURGICAL [id number] 05/13/2025 SN60 WF.225 / [id number] / [id number] Lens 21.5 Sn60wf - [id number] - [id number] Implanted:Qty : 1 on 12/19/2023 by Ramsey Burnett DO at OR [facility] Left: Eye IVA : SURGICAL 12/03/2024 SN60WF.2 15 / [id number] / documented as of this encounter Procedures Procedure Name Priority Date/Time Associated Diagnosis Comments URINALYSIS WITH MICROSCOPIC EXAM Routine 01/08/2024 12:29 PM EDT Uncontrolled hypertension ALBUMIN / CREATININE RATIO, URINE Routine 01/08/2024 12:29 PM EDT Uncontrolled hypertension ELECTROLYTES, RANDOM URINE Routine 01/08/2024 12:29 PM EDT History of electrolyte imbalance OSMOLALITY, URINE Routine 01/08/2024 12: 29 PM EDT History of electrolyte imbalance DIFFERENTIAL, AUTOMATED Routine 01/08/2024 12:22 PM EDT History of acute renal failure COMPREHENSIVE METABOLIC PANEL Routine 01/08/2024 12:22 PM EDT History of acute renal failure History of electrolyte imbalance Uncontrolled hypertension CBC Routine 01/08/2024 12:22 PM EDT History of acute renal failure OSMOLALITY, SERUM Routine 01/08/2024 12: 22 PM EDT History of electrolyte imbalance CBC Routine 01/08/2024 12:22 PM EDT History of acute renal failure DIFFERENTIAL, TECHNOLOGIST REVIEW Routine 01/08/2024 12:22 PM EDT History of acute renal failure documented in this encounter Results * ELECTROLYTES, RANDOM URINE (01/08/2024 12:29 PM EDT) Sodium, Random Urine 78 mmol/L 01/08/2024 5:42 PM EDT LABORATORY [facility] Potassium, Random Urine 50.2 mmol/L 01/08/2024 5:42 PM EDT LABORATORY [facility] Chloride, Random Urine 93 mmol/L 01/08/2024 5:42 PM EDT LABORATORY [facility] Urine Non-blood Collection / Unknown 01/08/2024 12:29 PM EDT 01/08/2024 12:29 PM EDT Jasvir Sun MD LAB URINE ORDERAB LES Performing Organization Address City/[facility]/ZIP Co de Phone Number LABORATORY [facility] [address] [place] [address] * OSMOLALITY, URINE (01/08/2024 12:29 PM EDT) Osmolality, Urine 378 50 - 1,200 mOsm/kg 01/08/2024 5:35 PM EDT LABORATORY [facility] Urine Urine specimen obtained by clean catch procedure / Unknown Non-blood Collection / Unknown 01/08/2024 12:29 PM EDT 01/08/2024 12:29 PM EDT Jasvir Sun MD LAB URINE ORDERAB LES Performing Organization Address [facility] Co de Phone Number LABORATORY [facility] [address] [place] [address] * (ABNORMAL) ALBUMIN / CREATININE RATIO, URINE (01/08/2024 12:29 PM EDT) Albumin, Random Urine 5.53 mg/dL 01/08/2024 5:55 PM EDT LABORATORY [facility] Creatinine, Random Urine 58 mg/dL 01/08/2024 5:55 PM EDT LABORATORY [facility] Albumin / Creatinine Ratio, Urine 95(H) <30 mg/g Creat 01/08/2024 5:55 PM EDT LABORATORY [facility] Urine Urine specimen obtained by clean catch procedure / Unknown Non-blood Collection / Unknown 01/08/2024 12:29 PM EDT 01/08/2024 12:29 PM EDT Narrative LABORATORY [facility] - 01/08/2024 5:55 PM EDT Normal: <30 mg/g creatinine High: 30-300 mg/g creatinine Very High: >300 mg/g creatinine Nephrotic: >2200 mg/g creatinine Jasvir Sun MD LAB URINE ORDERAB LES Performing Organization Address City/[facility]/ZIP Co de Phone Number LABORATORY [facility] [address] [place] [address] * (ABNORMAL) URINALYSIS WITH MICROSCOPIC EXAM (01/08/2024 12:29 PM EDT) Color, Urine Yellow Light Yellow, Yellow, Dark Yellow 01/08/2024 1:43 PM EDT LABORATORY [place] [facility] Clarity, Urine Clear Clear 01/08/2024 1:43 PM EDT LABORATORY [place] [facility] Glucose, Urine 100(A) Negative mg/dL 01/08/2024 1:43 PM EDT LABORATORY [place] [facility] Bilirubin, Urine Negative Negative 01/08/2024 1:43 PM EDT LABORATORY [place] [facility] Ketone, Urine Negative Negative mg/dL 01/08/2024 1:43 PM EDT LABORATORY [place] [facility] Specific [place], Urine 1.015 1.003 - 1.030 01/08/2024 1:43 PM EDT LABORATORY [place] [facility] Blood, Urine Trace(A) Negative 01/08/2024 1:43 PM EDT LAB[facility]ATORY [place] [facility] pH, Urine 6.5 5.0 - 7.5 Units 01/08/2024 1:43 PM EDT LABORATORY [place] [facility] Protein, Urine Negative Negative mg/dL 01/08/2024 1:43 PM EDT LABORATORY [place] [facility] Urobilinogen, Urine 0.2 0.2, 1.0 mg/dL 01/08/2024 1:43 PM EDT LABORATORY [place] [facility] Nitrite, Urine Negative Negative 01/08/2024 1:43 PM EDT LAB[facility]ATORY [place] [facility] Esterase, Urine Small(A) Negative 01/08/2024 1:43 PM EDT LAB[facility]ATORY [place] [facility] RBC, Urine 0-2 0 - 2 /HPF 01/08/2024 1:43 PM EDT LAB[facility]ATORY [place] [facility] WBC, Urine 30-49(A) 0 - 2 /HPF 01/08/2024 1:43 PM EDT LAB[facility]ATORY [place] [facility] Bacteria, Urine >200(A) 0 - 25 /HPF 01/08/2024 1:43 PM EDT LAB[facility]ATORY [place] [facility] Urine Urine specimen obtained by clean catch procedure / Unknown Non-blood Collection / Unknown 01/08/2024 12:29 PM EDT 01/08/2024 12:29 PM EDT Jasvir Sun MD LAB URINE ORDERAB LES LAB[facility]ORY [facility] [place] [address] * DIFFERENTIAL, TECHNOLOGIST REVIEW (01/08/2024 12:22 PM EDT) Pathologist [facility] nRs 01/08/2024 2:02 PM EDT LABORATORY [place] [facility] Blood Venous blood specimen / Unknown Venipuncture / Unknown 01/08/2024 12:22 PM EDT 01/08/2024 12:22 PM EDT Jasvir Sun MD LAB BLOOD ORDERAB LES [facility] [place] [facility] [address] [place] [id number] * (ABNORMAL) DIFFERENTIAL, AUTOMATED (01/08/2024 12:22 PM EDT) WBC 9.14 4.00 - 10.80 K/uL 01/08/2024 2:02 PM EDT LAB[facility]ATORY [place] [facility] Neutrophils % 46.2 40.0 - 75.0 % 01/08/2024 2:02 PM EDT LAB[facility]ORY [place] [facility] Lymphocytes % 43.4(H) 18.0 - 42.0 % 01/08/2024 2:02 PM EDT LAB[facility]ATORY [place] [facility] Monocytes % 6.9 1.0 - 11.0 % 01/08/2024 2:02 PM EDT LAB[facility]ATORY [place] [facility] Eosinophils % 3.1 0.0 - 6.0 % 01/08/2024 2:02 PM EDT LAB[facility]ORY [place] [facility] Basophils % 0.4 0.0 - 2.0 % 01/08/2024 2:02 PM EDT LAB[facility]ATORY [place] [facility] Absolute Neutrophils 4.22 1.80 - 7.70 K/uL 01/08/2024 2:02 PM EDT LABORATORY [place] [facility] Absolute Lymphocytes 3.97 1.00 - 4.80 K/ul 01/08/2024 2:02 PM EDT [facility] Absolute Monocytes 0.63 0.00 - 1.10 K/uL 01/08/2024 2:02 PM EDT LABORATORY [place] [facility] Absolute Eosinophils 0.28 0.00 - 0.70 K/uL 01/08/2024 2:02 PM EDT LABORATORY [place] [facility] Absolute Basophils 0.04 0.00 - 0.20 K/uL 01/08/2024 2:02 PM EDT LABORATORY [place] [facility] Blood Venous blood specimen / Unknown Venipuncture / Unknown 01/08/2024 12:22 PM EDT 01/08/2024 12:22 PM EDT Jasvir Sun MD LAB BLOOD ORDERAB LES LABORATORY [place] [address] [place] [address] * CBC (01/08/2024 12:22 PM EDT) WBC 9.14 4.00 - 10.80 K/uL 01/08/2024 2:02 PM EDT LABORATORY [place] [facility]10 RBC 4.66 3.85 - 5.15 M/uL 01/08/2024 2:02 PM EDT LABORATORY [place] [facility]10 HGB 12.4 12.0 - 15.3 g/dL 01/08/2024 2:02 PM EDT LABORATORY [place] 57[facility]10 HCT 37.0 36.0 - 45.2 % 01/08/2024 2:02 PM EDT LABORATORY [place] [facility]10 MCV 79.4 81.5 - 97.5 fL 01/08/2024 2:02 PM EDT LABORATORY [place] [facility]10 MCH 26.6 27.0 - 34.0 pg 01/08/2024 2:02 PM EDT LABORATORY [place] [facility] MCHC 33.5 32.0 - 36.0 g/dL 01/08/2024 2:02 PM EDT LABORATORY [place] [facility] RDW 15.2 11.5 - 15.5 % 01/08/2024 2:02 PM EDT LABORATORY [place] [facility] PLT 203 140 - 400 K/uL 01/08/2024 2:02 PM EDT LABORATORY [place] [facility] MPV 10.6 6.6 - 11.1 fL 01/08/2024 2:02 PM EDT LABORATORY [place] [facility] Blood Venous blood specimen / Unknown Venipuncture / Unknown 01/08/2024 12:22 PM EDT 01/08/2024 12:22 PM EDT Jasvir Sun MD LAB BLOOD ORDERAB LES LAB[facility]ATORY [place] [facility] [place] [address] * TSH WITH FREE T4 IF INDICATED (01/08/2024 12:22 PM EDT) Pathologist [facility] TSH 1.80 0.27 - 4.20 uIU/mL 01/08/2024 10:19 PM EDT LABORATORY [facility] Blood Venous blood specimen / Unknown Venipuncture / Unknown 01/08/2024 12:22 PM EDT 01/08/2024 12:22 PM EDT Jasvir Sun MD LAB BLOOD ORDERAB LES LAB[facility]ATORY [facility] [address] [place] [address] * OSMOLALITY, SERUM (01/08/2024 12:22 PM EDT) Osmolality, Serum 292 278 - 305 mOsm/kg 01/08/2024 5:58 PM EDT LABORATORY [facility] Blood Venous blood specimen / Unknown Venipuncture / Unknown 01/08/2024 12:22 PM EDT 01/08/2024 12:22 PM EDT Jasvir Sun MD LAB BLOOD ORDERAB LES LAB[facility]ATORY [facility] [address] [place] [address] * (ABNORMAL) COMPREHENSIVE METABOLIC PANEL (01/08/2024 12:22 PM EDT) BUN 11 6 - 20 mg/dL 01/08/2024 1:46 PM EDT LABORATORY [place] [facility] Creatinine 1.0 0.5 - 1.0 mg/dL 01/08/2024 1:46 PM EDT LABORATORY [place] [facility] Estimated Glomerular Filtration Rate 63 >=60 mL/min 01/08/2024 1:46 PM EDT LABORATORY [place] [facility] Comment:eGFR is calculated b ased on the CKD-EPI 2020 equation Sodium 134(L) 135 - 146 mmol/L 01/08/2024 1:46 PM EDT LABORATORY [place] [facility] Potassium 5.1 3.5 - 5.1 mmol/L 01/08/2024 1:46 PM EDT LABORATORY [place] [facility] Chloride 95(L) 98 - 107 mmol/L 01/08/2024 1:46 PM EDT LABORATORY [place] [facility] CO2 27 22 - 32 mmol/L 01/08/2024 1:46 PM EDT LABORATORY [place] [facility] Anion Gap 12 7 - 15 mmol/L 01/08/2024 1:46 PM EDT LABORATORY [place] [facility] Glucose 218(H) 70 - 120 mg/dL 01/08/2024 1:46 PM EDT LABORATORY [place] [facility] Albumin 4.0 3.8 - 5.0 g/dL 01/08/2024 1:46 PM EDT LABORATORY [place] [facility] AST 26 10 - 35 U/L 01/08/2024 1:46 PM EDT LABORATORY [place] [facility] Comment:Result may be falsel y elevated due to hemolysis. Alkaline Phosphatase 105 35 - 130 U/L 01/08/2024 1:46 PM EDT LABORATORY [place] [facility] Bilirubin, Total 0.4 <=1.2 mg/dL 01/08/2024 1:46 PM EDT LABORATORY [place] [facility] Calcium 10.4(H) 8.4 - 10.2 mg/dL 01/08/2024 1:46 PM EDT LABORATORY [place] [facility] Protein 7.2 6.0 - 8.3 g/dL 01/08/2024 1:46 PM EDT LABORATORY [place] [facility] ALT 20 10 - 35 U/L 01/08/2024 1:46 PM EDT LABORATORY [place] [facility] Blood Venous blood specimen / Unknown Venipuncture / Unknown 01/08/2024 12:22 PM EDT 01/08/2024 12:22 PM EDT Jasvir Sun MD LAB BLOOD ORDERAB LES Performing Organization Address City/State/[facility] Co de Phone Number LABORATORY [place] [facility] [place] [address] documented in this encounter Visit Diagnoses Diagnosis Uncontrolled hypertension- Primary Unspecified essential hypertension History of acute renal failure Personal history of other disorder of urinary system History of electrolyte imbalance Personal history of other endocrine, metabolic, and immunity disorders White coat syndrome with diagnosis of hypertension documented in this encounter Advance Directives [...] the patient have Health Care Power of Cloth Coverer? No Full Code 10/10/2019 8:40 AM 10/10/2019 5:53 PM This order reflects the patients wishes and were consensually agreed upon. Healthcare Agents on File Name Relationship Healthcare Agent [facility] p Communication Gigi Gutierrez [facility] Adult Child Health Care Repr esentative (appointed verbally by patient or by statute hierarchy) Care Teams Mainframe Systems Programmer Relationship Specialty Start Date End Date Deon Rausch MD [address] [address] PCP - General Family Medicine 02/12/20 documented as of this encounter
--- OUTSIDE RECORDS SUMMARY | 2024-06-05 14:56 | External Medical Summary | Summary of Care ---
Author Name Unknown Organization [facility] Address [address] [place] [address] Phone [phone] Care Team Providers Care Bench Molder Apprentice Name Role Phone Gregory Rausch MD Primary Care Provider [phone] Encounter Details Date Type Department Care Team (Late st Contact Info) Description 01/22/2024 11:00 AM EDT Home Visit Care Coordination and Integration [address] [place] [address] Angelica Navas, Community Health Toy Mechanic [address], [place] [id number] Allergies Active Allergy Reactions Criticality Noted Date Comments Adhesive Tape 07/02/2017 Can tolerate band-aids Glycerin Other (Please comment) 03/12/2008 Topical agents with glycein-burning & itching Lactose 12/09/2014 Dairy - gas Lisinopril Cough 01/21/2010 Monosodium Glutamate Edema Other 03/12/2008 Hands and feet Penicillins Rash 11/14/2007 documented as of this encounter (statuses as of 01/22/2024) Medications Medication Sig Dispensed Refills Start Date [...] A1c goal of less than 7.0% ([facility]) Use as directed. Use 1 transmitter every 90 days E 11.9 1 Each 3 10/18/2023 Active Additional Information Patient not taking.Reported on 01/22/2024 Dexcom G6 SensorIndications:Ty pe 2 diabetes mellitus with hemoglobin A1c goal of less than 7.0% ([facility]) Use as directed. Use [...] failure with preserved ejection fraction (HFpEF) ([facility]) Take 1 Tablet by mouth in the morning and 1 Tablet before bedtime. 180 Tablet 3 01/22/2024 Active Tresiba FlexTouch 200 UNIT/ML Subcutaneous Solution Pen-injector (Insulin Degludec)Indications :Type 2 diabetes mellitus with hemoglobin A1c goal of less than 7.0% ([facility]),Type 2 diabetes mellitus with stage 3a chronic kidney disease, with long-term current use of insulin ([facility]) Inject 30 Units under the skin in the morning. 6 mL 2 01/10/2024 Active BD Pen Needle Short U/F 31G X 8 MMIndications:Type 2 diabetes mellitus with hemoglobin A1c goal of less than 7.0% ([facility]),Type 2 diabetes mellitus with stage 3a chronic kidney disease, with long-term current use of insulin ([facility]) Use with insulin 4 [...] MEDICATIONS 90 Tablet 2 01/10/2024 Active Nystatin 266802 UNIT/GM External Powder (Nystop)Indications: Candidal intertrigo Apply topically to affected area 3 times a day. Apply to affected areas 60 g 1 01/10/2024 Active Aquaphor External Ointment Apply topically to affected area as needed for Dry Skin. Apply to face 420 g 0 01/10/2024 Active Gabapentin 100 MG Oral Capsule (Neurontin)Indicatio ns:Polyneuropathy associated with underlying disease ([facility]) TAKE 1 CAPSULE BY [...] failure, systolic, due to idiopathic cardiomyopathy ([facility]),S/P aortic valve replacement,HTN, goal [...] as of this encounter (statuses as of 01/22/2024) Active Problems Problem Noted Date Diagnosed Date [...] eye 09/28/2020 Coronary artery disease invo lving [place] coronary artery of [place] heart without angina pectoris 12/16/2019 Last Assessment [...] as of this encounter (statuses as of 01/22/2024) Resolved Problems Problem Noted Date Diagnosed Date [...] 12/21/2016 Diabetes mellitus 01/05/2014 12/21/2016 LEYVA RESEARCH OTHER*[id number] 01/05/2014 12/21/2016 Axillary pain 11/03/2013 12/21/2016 Obesity, [...] cath 09/201008/26/2011 12/21/2016 FOLLOWING SURGERY, UNSPECIFI ED ([facility] BSO 08/25/2011) 08/26/2011 12/21/2016 ADVANCE DIRECTIVE INFORMATION 04/17/2011 12/21/2016 Overview: Yes, Patient instructed to provide copy of advance directive for provider to review and to be scanned into Electronic Medical Record ADVANCE DIRECTIVE INFORMATION 03/01/2011 12/21/2016 Overview: Yes, Patient instructed to provide copy of advance directive for provider to review and to be scanned into Electronic Medical Record [facility] V710 Clinical Trial*[id number] 12/22/2010 04/14/2011 S/P aortic valve replacement 12/01/2010 08/26/2011 S/P AORTIC VALVE REPLACEMENT - #25 pericardial Mc valve 11/01/2010 06/28/2018 Overview: Aortic valve replacement with #25 pericardial Mc valve, model 2800TFX, serial number [id number] (Dr. Walker) [facility] V710 Clinical Trial*[id number] 10/18/2010 11/21/2010 Body mass index (BMI) of [...] as of this encounter (statuses as of 01/22/2024) Immunizations Name Administration Dates Next Due COVID-19 mRNA, LNP-s, No Pre serve, 2-Dose Series (Moderna) 10/25/2021,02/16/2021,01/18/2021 HEP A - Hepatitis A (Adult > 18 yrs) 06/07/2018, 12/05/2017 Hepatitis B, 20+ yrs 06/07/2018,01/08/20 18,12/05/2017,06/15,10/27/2013,09/12/2013 Pneumococcal Conjugate Vacci ne, 20-valent ([id number]) 06/22/2023 Pneumococcal Polysaccharide PPV23 (Pneumovax) 01/02/2008 Seasonal [...] Sign Reading Time Taken Comments Blood Pressure 160/80 01/22/2024 11:29 AM EDT Pulse 81 01/22/2024 11:29 AM EDT Temperature 36.6 C (97.8 F) 01/22/2024 11:29 AM E DT Respiratory Rate - - Oxygen Saturation 96% 01/22/2024 11:29 AM EDT Inhaled Oxygen Concentration - - [...] Progress Notes * Angelica Navas, Community Health Toy Mechanic - 01/22/2024 11:23 AM EDT Telemedicine visit: No Community Health Toy Mechanic (VALE) documentation: CHW initiated home visit with patient and intensive care specialist- Stephanie- with [place] [facility]. Is still dealingwith C-diff and so home health with [facility] has extended there care. Had her last visit last week and believes that she was discharged. Angelica Navas- Community Health Worker 1 Support Services/[facility] [employer] [facility] [email or web address] documented in this encounter Plan of Treatment Upcoming Encounters Date Type Department Care Team (Late st Contact Info) Description 01/30/2024 9:10 AM EDT Office Visit Pharmacy, [facility] [place] [address] [facility] [place] [address] Pharmacist1, [facility] [address] [facility] [place] [address] 02/04/2024 10:20 AM EDT Office Visit Family Practice [facility] [address] [place] [address] Gregory Rausch MD [address] [place] [address] 02/13/2024 10:00 AM EDT Home Visit [facility] at [facility] [address] [facility] [place] [address] Jaycee Sorto RN 132 [place] [address] 02/21/2024 9:00 AM EDT Office Visit Pharmacy, [facility] [address] [facility] [place] [address] Pharmacist1, [facility] [address] [facility] [place] [address] 03/06/2024 7:45 AM EDT Office Visit Ophthalmology, [facility] [address] [facility] [place] [address] Ramsey Burnett DO [address] [facility] [place] [address] 06/03/2024 9:00 AM EDT Telemedicine Psychiatry, [facility] [address] [place] [address] Janice Atwood MD [address] [place] [address] 07/17/2024 9:30 AM EDT Office Visit Cardiology, [facility] [address] [place] [address] Roberto Carlos Muniz, [address] [place] [address] 11/27/2024 9:40 AM EST Office Visit Nephrology, [place] [place] [address] [facility] [place] [address] Fidelina Baumann MD [address] [facility] [place] [address] Scheduled Procedures Name Priority Associated Diagnoses Date/Ti [...] Additional history exists CKD PHOS USE SMARTSET 22454 06/18/202405/26, 06/16/2023, 06/15/2023, Additional history exists GFR 07/09/2024 01/08/2024, 09/25, 08/02/2023, Additional history exists Diabetic Eye Exam 09/13/2024 09/13/2023, , 09/13/2023, Additional history exists B-12 09/18/2024 09/18/2023, 08/24, 2020, Additional history exists Albumin/Creatinine Ratio 01/07/2025 024, 03/09/2023, 12/22/2022, Additional history exists CKD HGB USE SMARTSET 22142 01/07/202501/07, 01/08/2024, 10/15/2023, Additional history exists TSH [...] this encounter Medical Devices Implanted Type Area Crm Manager Device Identifier Shelf Expiration Date Model / Serial / Lot Cath Roselia Single Lumen - [id number] Implanted:Qty : 1 on 03/12/2008 at OR [facility] Left: Chest [facility] *DO NOT USE* 07/25/2012 21-4053-24 / / [id number] Sut Steel 6 M654g - [id number] Implanted:Qty : 1 on 11/01/2010 at OR [facility] N/A: Chest DO NOT USE M654G / / Sut Steel 6 M654g - [id number] Implanted:Qty : 1 on 11/01/2010 at OR [facility] N/A: Chest DO NOT USE M654G / / Valve Tarsha Aortic [id number] - [id number] Implanted:Qty : 1 on 11/01/2010 at OR [facility] N/A: Heart [employer] DANIEL 05/20/2012 2800TFX-25 / / [id number] Mesh Soft [id number] - [id number] Implanted:Qty : 1 on 10/10/2019 by Gigi Hendrickson MD at [facility] N/A: Abdomen CR BARD : DAVOL [id number] 05/21/2024 [id number] / / [id number] Lens 22.5 Sn60wf - [id number] - [id number] Implanted:Qty : 1 on 09/15/2020 by Renaldo Cook, Cece Acosta MD at OR [facility] Right: Eye IVA : SURGICAL [id number] 05/13/2025 SN60 WF.225 / [id number] / [id number] Lens 21.5 Sn60wf - [id number] - [id number] Implanted:Qty : 1 on 12/19/2023 by Ramsey Burnett DO at OR [facility] Left: Eye IVA : SURGICAL 12/03/2024 SN60WF.2 15 / [id number] / documented as of this encounter [...] the patient have Health Care Power of Debone Processing Supervisor? No Full Code 10/10/2019 8:40 AM 10/10/2019 5:53 PM This order reflects the patients wishes and were consensually agreed upon. Healthcare Agents on File Name Relationship Healthcare Agent Relationshi p Communication [facility]igi [facility] Adult Child Health Care Repr esentative (appointed verbally by patient or by statute hierarchy) Care Teams Bench Molder Apprentice Relationship Specialty Start Date End Date Gregory Rausch MD [address] [place] [address] PCP - General Family Medicine 02/12/20 documented as of this encounter
--- OUTSIDE RECORDS SUMMARY | 2024-06-05 14:56 | External Medical Summary | Summary of Care ---
Author Name Unknown Organization [facility] Address [address] [place] [address] Phone [phone] Care Team Providers Care Group Worker Name Role Phone Gregory Rausch MD Primary Care Provider [phone] Encounter Details Date Type Department Care Team (Late st Contact Info) Description 01/23/2024 Telephone Pharmacy, [facility] [address] [place] [address] Lauro Self, [facility] [address] [place] [address] Allergies Active Allergy Reactions Criticality Noted Date [...] MEDICATIONS 90 Tablet 2 01/10/2024 Active Nystatin 196016 UNIT/GM External Powder (Nystop)Indications: Candidal intertrigo Apply [...] eye 09/28/2020 Coronary artery disease invo lving [place] coronary artery of [place] heart without angina pectoris 12/16/2019 Last Assessment [...] 12/21/2016 Diabetes mellitus 01/05/2014 12/21/2016 LEYVA RESEARCH OTHER*[id number] 01/05/2014 12/21/2016 Axillary pain 11/03/2013 12/21/2016 Obesity, [...] 09/201008/26/2011 12/21/2016 FOLLOWING SURGERY, UNSPECIFI ED ([facility] BSO 08/25/2011) 08/26/2011 12/21/2016 ADVANCE DIRECTIVE INFORMATION 04/17/2011 12/21/2016 Overview: Yes, Patient instructed to provide copy of advance directive for provider to review and to be scanned into Electronic Medical Record ADVANCE DIRECTIVE INFORMATION 03/01/2011 12/21/2016 Overview: Yes, Patient instructed to provide copy of advance directive for provider to review and to be scanned into Electronic Medical Record [facility] V710 Clinical Trial*[id number] 12/22/2010 04/14/2011 S/P aortic valve replacement 12/01/2010 08/26/2011 S/P AORTIC VALVE REPLACEMENT - #25 pericardial Hernandez valve 11/01/2010 06/28/2018 Overview: Aortic valve replacement with #25 pericardial Hernandez valve, model 2800TFX, serial number [id number] (Dr. Walker) [facility] V710 Clinical Trial*[id number] 10/18/2010 11/21/2010 Body mass index (BMI) of [...] 06/07/2018,01/08/20 18,12/05/2017,06/15,10/27/2013,09/12/2013 Pneumococcal Conjugate Vacci ne, 20-valent ([id number]) 06/22/2023 Pneumococcal Polysaccharide PPV23 (Pneumovax) 01/02/2008 Seasonal [...] Notes * Telephone Encounter - Lauro Self [facility] - 01/23/2024 2:44 PM EDT Patient Phone Numbers Received TT from [facility] nurse Angelica Welch RN. Pt having high blood sugar of 404, which after administration of 8 units of novolog is still 423 (approx 1.5 hrs later). Pt is currently dealing with a C.diff infection and is off the metformin out of caution of dehydration caused by the c.diff that could put the pt at risk for an HEIDY and lactic acidosis with metforminat the same time. Pt will eventually be transitioned to an omnipod V/dexcom G6 insulin pump system however the pt hasno showed/cancelled several appointments to try to restart the pump again. Pt instructed to administer a second bolus of 8 units of novolog. Diabetic Medications: Tresiba 30 units once daily [...] 180 Minimum B Active Insulin Time: 2 Lauro Self PharmD, BCACP, [facility] Clinical Pharmacist 01/23/2024, 2:55 PM documented in this encounter Plan of Treatment Upcoming Encounters Date Type Department Care Team (Late st Contact Info) Description 01/24/2024 2:00 PM EDT Scheduled Telephone [facility] [address] [place] [address] Coordinator, [facility] [address] [place] [address] 01/25/2024 10:30 AM EDT Scheduled Telephone [facility] [address] [place] [address] Coordinator, [facility] [address] [place] [address] 01/30/2024 9:10 AM EDT Office Visit Pharmacy, [facility] [address] [place] [address] Pharmacist1, [facility] [address] [facility] [place] [address] 02/04/2024 10:20 AM EDT Office Visit Family Practice [facility] [address] [place] [address] Gregory Rausch MD 132 [facility] [place] [address] 02/13/2024 10:00 AM EDT [facility] [address] [facility] [place] [address] Jaycee Sorto, RN [address] [place] [address] 02/21/2024 9:00 AM EDT Office Visit Pharmacy, [facility] [address] [facility] [place] [address] Pharmacist1, [facility] [address] [facility] [place] [address] 03/06/2024 7:45 AM EDT Office Visit Ophthalmology, [facility] [address] [place] [address] Ramsey Burnett, DO [address] [facility] [place] [address] 06/03/2024 9:00 AM EDT Telemedicine Psychiatry [facility] [address] [place] [address] Janice Atwood MD [address] [place] [address] 07/17/2024 9:30 AM EDT Office Visit Cardiology, [facility] [address] [facility] [place] [address] Roberto Carlos Muniz, DO [address] [facility] [place] [address] 11/27/2024 9:40 AM EST Office Visit Nephrology, [facility] [address] [facility] [place] [address] Fidelina Baumann MD 200 [place] [address] Scheduled Procedures Name Priority Associated Diagnoses Date/Ti [...] Additional history exists CKD PHOS USE SMARTSET 48737 06/18/202405/26, 06/16/2023, 06/15/2023, Additional history exists GFR 07/09/2024 01/08/2024, 09/25, 08/02/2023, Additional history exists Diabetic Eye Exam 09/13/2024 09/13/2023, , 09/13/2023, Additional history exists B-12 09/18/2024 09/18/2023, 08/24, 2020, Additional history exists Albumin/Creatinine Ratio 01/07/2025 024, 03/09/2023, 12/22/2022, Additional history exists CKD HGB USE SMARTSET 38685 01/07/202501/07, 01/08/2024, 10/15/2023, Additional history exists TSH [...] this encounter Medical Devices Implanted Type Area Internet Designer Device Identifier Shelf Expiration Date Model / Serial / Lot Cath Roselia Single Lumen - [id number] Implanted:Qty : 1 on 03/12/2008 at [facility] Left: Chest [facility] *DO NOT USE* 07/25/2012 21-4053-24 / / [id number] Sut Steel 6 M654g - [id number] Implanted:Qty : 1 on 11/01/2010 at OR [facility] N/A: Chest DO NOT USE M654G / / Sut Steel 6 M654g - [id number] Implanted:Qty : 1 on 11/01/2010 at OR [facility] N/A: Chest DO NOT USE M654G / / Valve Tarsha Aortic [id number] - [id number] Implanted:Qty : 1 on 11/01/2010 at OR [facility] N/A: Heart [employer] DANIEL 05/20/2012 2800TFX-25 / / [id number] Mesh Soft [id number] - [id number] Implanted:Qty : 1 on 10/10/2019 by Gigi Hendrickson MD at OR [facility] N/A: Abdomen CR BARD : DAVOL [id number] 05/21/2024 [id number] / / [id number] Lens 22.5 Sn60wf - [id number] - [id number] Implanted:Qty : 1 on 09/15/2020 by Cece Roland MD at [facility] Right: Eye IVA : SURGICAL [id number] 05/13/2025 SN60 WF.225 / [id number] / [id number] Lens 21.5 Sn60wf - [id number] - [id number] Implanted:Qty : 1 on 12/19/2023 by Ramsey Burnett DO at OR [facility] Left: Eye IVA : SURGICAL 12/03/2024 SN60WF.2 15 / [id number] / documented as of this encounter [...] the patient have Health Care Power of Phlebotomy Manager? No Full Code 10/10/2019 8:40 AM 10/10/2019 5:53 PM This order reflects the patients wishes and were consensually agreed upon. Healthcare Agents on File Name Relationship Healthcare Agent [facility] p Communication Gigi Rose Adult Child Health Care Repr esentative (appointed verbally by patient or by statute hierarchy) Care Teams Group Worker Relationship Specialty Start Date End Date Gregory Rausch MD [address] [place] [address] PCP - General Family Medicine 02/12/20 documented as of this encounter
--- OUTSIDE RECORDS SUMMARY | 2024-06-05 14:56 | External Medical Summary | Summary of Care ---
Author Name Unknown Organization [facility] Address [address] [place] [address] Phone [phone] Care Team Providers Care Dozer Operator Name Role Phone Gregory Rausch MD Primary Care Provider [phone] Reason for Visit * Reason Onset Date Comments Medication Refill 01/09/2024 Encounter Details Date Type Department Care Team (Late st Contact Info) Description 01/09/2024 Refill [facility], [facility] [address] [place] [address] Jose Neumann PA-C [address] [place] [address] Acute on chronic heart failure with preserved ejection fraction (HFpEF) ([facility]) Allergies Active Allergy Reactions Criticality [...] hypoglycemia E11.9 100 Tab 3 07/06/2021 Active MismiTouch Verio w/Device Kit Use up to 4 times a day E11.9 1 Kit 0 02/10/2022 Active MismiTouch Delica Lancets 33G TEST 4 TIMES DAILY [...] 12/03/2023 Insulin Aspart 100 UNIT/ML Injection Solution (NovoLOG)Indication [...] mouth at bedtime. 0 Active Dexcom G6 TransmitterIndicati ons:Type 2 diabetes mellitus with hemoglobin A1c goal of less than 7.0% ([facility]) Use as directed. Use 1 transmitter every 90 days E 11.9 1 Each 3 10/18/2023 Active Dexcom G6 SensorIndications:T ype 2 diabetes mellitus with hemoglobin A1c goal of less than 7.0% ([facility]) Use as directed. Use 1 sensor every 10 days E 11.9 9 Each 10/18/2023 Active DULoxetine HCl 20 MG Oral Capsule [...] MEDICATIONS 90 Tablet 2 01/10/2024 Active Nystatin 831430 UNIT/GM External Powder (Nystop)Indications :Candidal intertrigo Apply topically to affected area 3 times a day. Apply to affected areas 60 g 1 01/10/2024 Active Aquaphor External Ointment Apply topically to affected area as needed for Dry Skin. Apply to face 420 g 0 01/10/2024 Active Gabapentin 100 MG Oral Capsule (Neurontin)Indicati ons:Polyneuropathy associated with underlying disease ([facility]) TAKE 1 CAPSULE BY MOUTH [...] s:Heart failure, systolic, due to idiopathic cardiomyopathy ([facility]),S/P aortic valve replacement,HTN, goal below 140/80,Dyslipidemia , [...] before bedtime. 60 Tablet 5 01/10/2024 Active OneTouch Verio In Vitro Strip (Glucose Blood) Use up to 4 times a day E11.9 100 Strip 11 07/26/2023 01/09/20 24 Discontinu ed(Refill) Potassium Chloride Shannon ER 10 MEQ Oral Tablet Extended ReleaseIndications: Acute on chronic heart failure with preserved ejection fraction (HFpEF) (HCC) Take 1 Tablet by mouth in the morning and 1 Tablet before bedtime. 180 Tablet 3 07/26/2023 01/09/20 24 Discontinu ed(Refill) documented as of this [...] eye 09/28/2020 Coronary artery disease invo lving karuk coronary artery of karuk heart without angina pectoris 12/16/2019 Last Assessment [...] 12/21/2016 Diabetes mellitus 01/05/2014 12/21/2016 LEYVA RESEARCH OTHER*[id number] 01/05/2014 12/21/2016 Axillary pain 11/03/2013 12/21/2016 Obesity, [...] 12/21/2016 FOLLOWING SURGERY, UNSPECIFI ED ([facility] BSO 08/25/2011) 08/26/2011 12/21/2016 ADVANCE DIRECTIVE [...] Medical Record [facility] V710 Clinical Trial*[id number] 12/22/2010 04/14/2011 S/P aortic valve replacement 12/01/2010 08/26/2011 S/P AORTIC VALVE REPLACEMENT - #25 pericardial Mc valve 11/01/2010 06/28/2018 Overview: Aortic valve replacement with #25 pericardial Mc valve, model 2800TFX, serial number [id number] (Dr. Walker) [facility] V710 Clinical Trial*[id number] 10/18/2010 11/21/2010 Body mass index (BMI) of [...] 06/07/2018,01/08/20 18,12/05/2017,06/15,10/27/2013,09/12/2013 Pneumococcal Conjugate Vacci ne, 20-valent (Eyrsgri69) 06/22/2023 Pneumococcal Polysaccharide PPV23 (Pneumovax) 01/02/2008 Seasonal [...] Miscellaneous Notes * Telephone Encounter - Jose Neumann PA-C - 01/22/2024 11:31 AM EDT Signed Prescriptions: Disp Refills OneTouch Verio In Vitro Strip (Glucose Blo*[address] St*11 Sig: Use upto 4 times a day E11.9Authorizing Provider: JOSE NEUMANN Potassium Chloride Shannon ER 10 MEQ Oral Tab*180 Ta*3 Sig: Take 1 Tablet by mouth in the morning and 1 Tablet before bedtime.Authorizing Brenda eng: JOSE NEUMANN documented in this encounter Plan of Treatment Upcoming Encounters Date Type Department Care Team (Late st Contact Info) Description 01/30/2024 9:10 AM EDT Office Visit Pharmacy, [facility] [address] [facility] [place] [address] Pharmacist1, [facility] [address] [facility] [place] [address] 02/04/2024 10:20 AM EDT Office Visit Family Practice [facility] [address] [facility] [place] [address] Gregory Rausch MD 132 [facility] [place] [address] 02/13/2024 10:00 AM EDT [facility] Visit [facility], [facility] 132 [facility] [place] [address] Jaycee Sorto RN 132 [place] [address] 02/21/2024 9:00 AM EDT Office Visit Pharmacy, [facility] [address] [facility] [place] [address] Pharmacist1, [facility] [address] [facility] [place] [address] 03/06/2024 7:45 AM EDT Office Visit Ophthalmology, [facility] 132 [facility] [place] [address] Ramsey Burnett, DO [address] [place] [address] 06/03/2024 9:00 AM EDT Telemedicine Psychiatry, [place] [address] [place] [address] Janice Atwood MD [address] [place] [address] 07/17/2024 9:30 AM EDT Office Visit Cardiology, [facility] [address] [place] [address] Roberto Carlos Muniz, [address] [place] [address] 11/27/2024 9:40 AM EST Office Visit Nephrology, [facility] [address] [place] [address] Fidelina Buamann MD [address] [place] [address] Scheduled Procedures Name Priority Associated Diagnoses Date/Ti [...] Additional history exists CKD PHOS USE SMARTSET 22901 06/18/202405/26, 06/16/2023, 06/15/2023, Additional history exists GFR 07/09/2024 01/08/2024, 09/25, 08/02/2023, Additional history exists Diabetic Eye Exam 09/13/2024 09/13/2023, , 09/13/2023, Additional history exists B-12 09/18/2024 09/18/2023, 08/24, 2020, Additional history exists Albumin/Creatinine Ratio 01/07/2025 024, 03/09/2023, 12/22/2022, Additional history exists CKD HGB USE SMARTSET 93272 01/07/202501/07, 01/08/2024, 10/15/2023, Additional history exists TSH [...] this encounter Medical Devices Implanted Type Area Chopped Strand Operator Device Identifier Shelf Expiration Date Model / Serial / Lot Cath Roselia Single Lumen - [id number] Implanted:Qty : 1 on 03/12/2008 at OR [facility] Left: Chest [facility] *DO NOT USE* 07/25/2012 21-4053-24 / / [id number] Sut Steel 6 M654g - [id number] Implanted:Qty : 1 on 11/01/2010 at OR [facility] N/A: Chest DO NOT USE M654G / / Sut Steel 6 M654g - [id number] Implanted:Qty : 1 on 11/01/2010 at OR [facility] N/A: Chest DO NOT USE M654G / / Valve Tarsha Aortic [id number] - [id number] Implanted:Qty : 1 on 11/01/2010 at OR [facility] N/A: Heart MC [employer] DANIEL 05/20/2012 2800TFX-25 / / [id number] Mesh Soft [id number] - [id number] Implanted:Qty : 1 on 10/10/2019 by Gigi Hendrickson MD at [place] [facility] N/A: Abdomen CR BARD : DAVOL [id number] 05/21/2024 [id number] / / [id number] Lens 22.5 Sn60wf - [id number] - [id number] Implanted:Qty : 1 on 09/15/2020 by Renaldo Cook, Cece Acosta MD at OR [facility] Right: Eye IVA : SURGICAL [id number] 05/13/2025 SN60 WF.225 / [id number] / [id number] Lens 21.5 Sn60wf - [id number] - [id number] Implanted:Qty : 1 on 12/19/2023 by Ramsey Burnett DO at OR [facility] Left: Eye IVA : SURGICAL 12/03/2024 SN60WF.2 15 / [id number] / documented as of this encounter Visit Diagnoses Diagnosis Acute on chronic heart failure with preserved ejection fraction (HFpEF) (HCC) documented in this encounter Advance Directives [...] the patient have Health Care Power of Grain Elevator Man? No Full Code 10/10/2019 8:40 AM 10/10/2019 5:53 PM This order reflects the patients wishes and were consensually agreed upon. Healthcare Agents on File Name Relationship Healthcare Agent Relationshi p Communication Gigi Rose Adult Child Health Care Repr esentative (appointed verbally by patient or by statute hierarchy) Care Teams Dozer Operator Relationship Specialty Start Date End Date Gregory Rausch MD [address] [place] [address] PCP - General Family Medicine 02/12/20 documented as of this encounter
--- OUTSIDE RECORDS SUMMARY | 2024-06-05 14:57 | External Medical Summary | Summary of Care ---
Author Name Unknown Organization [facility] Address [address] [place] [address] Phone [phone] Care Team Providers Care Grinder Needle Tip Name Role Phone Gregory Rausch MD Primary Care Provider [phone] Reason for Visit * Reason Onset Date Comments [facility]: Maintenance 01/02/2024 Encounter Details Date Type Department Care Team (Late st Contact Info) Description 01/02/2024 Telephone [facility], [facility] 132 [facility] [place] [address] Jaycee Sorto, RN 132 [place] [address] [facility]: Maintenance Allergies Active Allergy Reactions Criticality Noted Date Comments Adhesive Tape 07/02/2017 Can tolerate band-aids Glycerin Other (Please comment) 03/12/2008 Topical agents with glycein-burning & itching Lactose 12/09/2014 Dairy - gas Lisinopril Cough 01/21/2010 Monosodium Glutamate Edema Other 03/12/2008 Hands and feet Penicillins Rash 11/14/2007 documented as of this encounter (statuses as of 01/17/2024) Medications Medication Sig Dispensed Refills Start Date End Date Status aspirin enteric coated 81 MG TBECIndications:Aorti c valve disorder Take 1 Tab by mouth daily. 90 Tab 11 9 Active AZO Cranberry 250-30 MG Oral Tablet Take 1 Tablet by mouth in the morning. 0 Active BD Glucose 5 GM Oral Tablet Chewable (Glucose)Indications: DM type 2, not at goal ([facility]) 3 every 15 minutes until glucose is > 100 mg/dL for hypoglycemia E11.9 100 Tab 3 1 Active Diabetes Care GroupTouch Verio w/Device Kit Use up to 4 times a day E11.9 1 Kit 0 2 Active Diabetes Care GroupTouch Delica Lancets 33G TEST 4 TIMES DAILY [...] Additional Information Patient not taking.Reported on 01/08/2024 Diabetes Care GroupTouch Verio In Vitro Strip (Glucose Blood) Use up to 4 times a day E11.9 100 Strip 11 3 Active Potassium Chloride Shannon ER 10 MEQ Oral Tablet Extended ReleaseIndications:Ac tlingit & haida on chronic heart failure with preserved ejection [...] less than 7.0% ([facility]) Use as directed. Use 1 [...] at bedtime. 6 mL 2 3 01/09/20 Discontinu ed(Refill) BD Pen Needle Short U/F [...] Heart failure, systolic, due to idiopathic cardiomyopathy ([facility]),S/P aortic valve replacement,HTN, goal below [...] by mouth in the morning. 0 01/09/20 24 Discontinu ed(Medicat ion/Dose Changed) Metoprolol Tartrate 25 MG Oral Tablet (Lopressor) Take 1 Tablet by mouth in the morning and 1 Tablet before bedtime. 60 Tablet 5 4 01/10/20 24 Discontinu ed(Patient preference /discontin uation) Ammonium Lactate 12 % External Lotion (Lac-Hydrin) Apply to both feet once daily. 400 g 3 4 01/10/20 24 Discontinu ed(Patient preference /discontin uation) Nystatin 541715 UNIT/GM External Powder (Nystop)Indications:C andidal intertrigo Apply [...] ([facility]),Type 2 diabetes mellitus with diabetic mononeuropathy, with long-term current use of insulin ([facility]),Type 2 diabetes mellitus with both eyes affected by mild nonproliferative retinopathy and macular edema, with long-term current use of insulin ([facility]),Type 2 diabetes mellitus with stage 3a chronic kidney disease, with long-term current use of insulin ([facility]) Inject 2 mg under the skin once a week. 9 mL 3 4 01/09/20 24 Discontinu ed(Refill) Gabapentin 100 MG Oral Capsule (Neurontin)Indication s:Polyneuropathy associated with underlying disease ([facility]) TAKE 1 CAPSULE BY MOUTH [...] as of this encounter (statuses as of 01/17/2024) Active Problems Problem Noted Date Diagnosed Date [...] eye 09/28/2020 Coronary artery disease invo lving [place] coronary artery of [place] heart without angina pectoris 12/16/2019 Last [...] as of this encounter (statuses as of 01/17/2024) Resolved Problems Problem Noted Date Diagnosed Date [...] 12/21/2016 Diabetes mellitus 01/05/2014 12/21/2016 LEYVA RESEARCH OTHER*[id number] 01/05/2014 12/21/2016 Axillary pain 11/03/2013 12/21/2016 Obesity, [...] FOLLOWING SURGERY, UNSPECIFI ED ([facility] BSO 08/25/2011) 08/26/2011 12/21/2016 ADVANCE DIRECTIVE [...] Medical Record [facility] V710 Clinical Trial*[id number] 12/22/2010 04/14/2011 S/P aortic valve replacement 12/01/2010 08/26/2011 S/P AORTIC VALVE REPLACEMENT - #25 pericardial Mc valve 11/01/2010 06/28/2018 Overview: Aortic valve replacement with #25 pericardial Mc valve, model 2800TFX, serial number [id number] (Dr. Walker) [facility] V710 Clinical Trial*[id number] 10/18/2010 11/21/2010 Body mass index (BMI) of [...] as of this encounter (statuses as of 01/17/2024) Immunizations Name Administration Dates Next Due COVID-19 mRNA, LNP-s, No Pre serve, 2-Dose Series (Moderna) 10/25/2021,02/16/2021,01/18/2021 HEP A - Hepatitis A (Adult > 18 yrs) 06/07/2018, 12/05/2017 Hepatitis B, 20+ yrs 06/07/2018,01/08/20 18,12/05/2017,06/15,10/27/2013,09/12/2013 Pneumococcal Conjugate Vacci ne, 20-valent (Liouijn33) 06/22/2023 Pneumococcal Polysaccharide PPV23 (Pneumovax) 01/02/2008 Seasonal [...] encounter Miscellaneous Notes * Telephone Encounter - Jaycee Sorto RN - 01/02/2024 12:39 PM EDT Pt in need of Provider visit with Darek Junior PA-C. Can you please have this scheduled within the next month? Can be telemed or in person. Thank you! documented in this encounter Plan of Treatment Upcoming Encounters Date Type Department Care Team (Late st Contact Info) Description 01/18/2024 11:00 AM EDT Home Visit [facility] [place], [facility] [address] [place] [address] Darek Junior PA-C [address] [place] [address] 01/22/2024 11:00 AM EDT Home Visit [facility] [address] [place] [address] Angelica Navas, Community Health Prorate Clerk [address] [place] [address] 01/24/2024 2:45 PM EDT Office Visit Ophthalmology, [facility] [address] [place] [address] Ramsey Burnett, DO [address] [facility] [place] [address] 01/30/2024 9:10 AM EDT Office Visit Pharmacy, [facility] [address] [facility] [place] [address] Pharmacist1, [facility] [address] [place] [address] 02/04/2024 10:20 AM EDT Office Visit Family Practice [facility] [address] [place] [address] Gregory Rausch MD [address] [address] 02/13/2024 10:00 AM EDT [facility] Visit [facility], [facility] 132 [facility] [place] [address] Jaycee Sorto, RN 132 [facility] [address] 02/21/2024 9:00 AM EDT Office Visit Pharmacy, [facility] [address] [facility] [place] [address] Pharmacist1, [facility] [address] [facility] [place] [address] 06/03/2024 9:00 AM EDT Telemedicine Psychiatry, [place] [address] [place] [address] Janice Atwood MD [address] [place] [address] 07/17/2024 9:30 AM EDT Office Visit Cardiology, [facility] 132 [facility] [place] [address] Roberto Carlos Muniz, [address] [facility] [place] [address] 11/27/2024 9:40 AM EST Office Visit Nephrology, [facility] [address] [facility] [place] [address] Fidelina Baumann MD [address] [facility] [place] [address] Scheduled Procedures Name Priority Associated Diagnoses Date/Ti me EXTRACAPSULAR CATARACT REMOV AL COMPLEX WITH IOL Cataract COLONOSCOPY FLEXIBLE PROXIMAL DIAGNOSTIC Recall History of colon polyps ESOPHAGOGASTRODUODENOSCOPY ( EGD), FLEXIBLE, TRANSORAL, DIAGNOSTIC Recall Cirrhosis (HCC) COLONOSCOPY FLEXIBLE PROXIMAL DIAGNOSTIC Recall Personal history of colonic polyps Health Maintenance Due Date Last Done Comments HIV Screening 1975 Diabetic Foot Exam 2021 2020, 0 12/05/2018, 12/05/2017, Additional history exists COVID-19 Vaccine (2022- season) 2023 10/25/2021, 02/16/2021, 01/18/2021 DXA Scan 12/18/2023 01/12/2009 Depression, Most Recent Score >= 10 (will fire each visit until score < 10) 12/26/2023 12/25/2023 HbA1c 03/19/2024 09/18/2023, 1103/2023, 04/09/2023, Additional history exists CKD PHOS USE SMARTSET 25296 06/18/202405/26, 06/16/2023, 06/15/2023, Additional history exists GFR 07/09/2024 01/08/2024, 09/25, 08/02/2023, Additional history exists Diabetic Eye Exam 09/13/2024 09/13/2023, , 09/13/2023, Additional history exists B-12 09/18/2024 09/18/2023, 08/24, 2020, Additional history exists Albumin/Creatinine Ratio 01/07/2025 024, 03/09/2023, 12/22/2022, Additional history exists CKD HGB USE SMARTSET 31856 01/07/202501/07, 01/08/2024, 10/15/2023, Additional history exists TSH 01/07/2025 01/08/2024, 09/25, 06/06/2023, Additional history exists COLONOSCOPY-EVERY 3 YRS AGES [...] this encounter Medical Devices Implanted Type Area Consumer Affairs Manager Device Identifier Shelf Expiration Date Model / Serial / Lot Cath Roselia Single Lumen - [id number] Implanted:Qty : 1 on 03/12/2008 at OR [facility] Left: Chest [facility] *DO NOT USE* 07/25/2012 21-4053-24 / / [id number] Sut Steel 6 M654g - [id number] Implanted:Qty : 1 on 11/01/2010 at OR [facility] N/A: Chest DO NOT USE M654G / / Sut Steel 6 M654g - [id number] Implanted:Qty : 1 on 11/01/2010 at OR [facility] N/A: Chest DO NOT USE M654G / / Valve Tarsha Aortic [id number] - [id number] Implanted:Qty : 1 on 11/01/2010 at OR [facility] N/A: Heart [employer]ES DANIEL 05/20/2012 2800TFX-25 / / [id number] Mesh Soft [id number] - [id number] Implanted:Qty : 1 on 10/10/2019 by Gigi Hendrickson MD at [place] [facility] N/A: Abdomen CR BARD : DAVOL [id number] 05/21/2024 [id number] / / [id number] Lens 22.5 Sn60wf - [id number] - [id number] Implanted:Qty : 1 on 09/15/2020 by Cece Roland MD at OR [facility] Right: Eye IVA : SURGICAL [id number] 05/13/2025 SN60 WF.225 / [id number] / [id number] Lens 21.5 Sn60wf - [id number] - [id number] Implanted:Qty : 1 on 12/19/2023 by Ensor, Ramsey M, DO at OR [facility] Left: Eye IVA : SURGICAL 12/03/2024 SN60WF.2 15 [id number] / documented as of this encounter [...] the patient have Health Care Power of Renal Medicine Specialist? No Full Code 10/10/2019 8:40 AM 10/10/2019 5:53 PM This order reflects the patients wishes and were consensually agreed upon. Healthcare Agents on File Name Relationship Healthcare Agent Relationshi p Communication Gigi Rose Adult Child Health Care Repr esentative (appointed verbally by patient or by statute hierarchy) Care Teams Grinder Needle Tip Relationship Specialty Start Date End Date Gregory Rausch MD [address] [place] [address] PCP - General Family Medicine 02/12/20 documented as of this encounter
--- OUTSIDE RECORDS SUMMARY | 2024-06-05 14:57 | External Medical Summary | Summary of Care ---
Author Name Unknown Organization [facility] Address [address] [place] [address] Phone [phone] Care Team Providers Care Fur Examiner Name Role Phone Gregory Rausch MD Primary Care Provider [phone] Reason for Visit * Reason Onset Date Comments Med Request 01/15/2024 Encounter Details Date Type Department Care Team (Late st Contact Info) Description 01/15/2024 Telephone Family Practice [facility] [address] [place] [address] Gregory Rausch MD [address] [place] [address] Med Request Allergies Active Allergy Reactions Criticality Noted Date Comments Adhesive Tape 07/02/2017 Can tolerate band-aids Glycerin Other (Please comment) 03/12/2008 Topical agents with glycein-burning & itching Lactose 12/09/2014 Dairy - gas Lisinopril Cough 01/21/2010 Monosodium Glutamate Edema Other 03/12/2008 Hands and feet Penicillins Rash 11/14/2007 documented as of this encounter (statuses as of 01/15/2024) Medications Medication Sig Dispensed Refills Start Date [...] hypoglycemia E11.9 100 Tab 3 07/06/2021 Active VouchedForTouch Verio w/Device Kit Use up to 4 [...] heart failure with preserved ejection fraction (HFpEF) ([facility]) Take 1 Tablet by mouth [...] hemoglobin A1c goal of less than 7.0% ([facility]) Use up to 50 units [...] hemoglobin A1c goal of less than 7.0% ([facility]) Use as directed. Use 1 transmitter every 90 days E 11.9 1 Each 10/18/2023 Active Dexcom G6 SensorIndications:Ty pe 2 diabetes mellitus with hemoglobin A1c goal of less than 7.0% ([facility]) Use as directed. Use 1 [...] hemoglobin A1c goal of less than 7.0% ([facility]),Type 2 diabetes mellitus with stage 3a chronic kidney disease, with long-term current use of insulin ([facility]) Inject 30 Units under the skin in the morning. 6 mL 2 01/10/2024 Active BD Pen Needle Short U/F 31G X 8 MMIndications:Type 2 diabetes mellitus with hemoglobin A1c goal of less than 7.0% ([facility]),Type 2 diabetes mellitus with stage 3a chronic kidney disease, with long-term current use of insulin ([facility]) Use with insulin 4 times [...] MEDICATIONS 90 Tablet 2 01/10/2024 Active Nystatin 245980 UNIT/GM External Powder (Nystop)Indications: Candidal intertrigo Apply topically to affected area 3 times a day. Apply to affected areas 60 g 1 01/10/2024 Active Aquaphor External Ointment Apply topically to affected area as needed for Dry Skin. Apply to face 420 g 0 01/10/2024 Active Gabapentin 100 MG Oral Capsule (Neurontin)Indicatio ns:Polyneuropathy associated with underlying disease ([facility]) TAKE 1 CAPSULE BY MOUTH EVERY DAY IN THE MORNING , AT NOON, AND BEFORE BEDTIME 90 Capsule 01/10/2024 Active Ozempic (2 MG/DOSE) 8 MG/3ML Subcutaneous Solution Pen-injector (Semaglutide (2 MG/DOSE))Indications :weekly on fridays Inject 2 mg under the skin once a week. 9 mL 3 01/09/2024 Active Ammonium Lactate 12 % External Lotion (Lac-Hydrin) Apply to both feet once daily. 400 g 01/10/2024 Active Atorvastatin Calcium 40 MG Oral Tablet (Lipitor)Indications :Heart failure, systolic, due to idiopathic cardiomyopathy ([facility]),S/P aortic valve replacement,HTN, goal below [...] before bedtime. 60 Tablet 5 01/10/2024 Active documented as of this encounter (statuses as of 01/15/2024) Active Problems Problem Noted Date Diagnosed Date [...] eye 09/28/2020 Coronary artery disease invo lving pechanga coronary artery of pechanga heart without angina pectoris 12/16/2019 Last Assessment [...] as of this encounter (statuses as of 01/15/2024) Resolved Problems Problem Noted Date Diagnosed Date [...] 12/21/2016 Diabetes mellitus 01/05/2014 12/21/2016 LEYVA RESEARCH OTHER*[id number] 01/05/2014 12/21/2016 Axillary pain 11/03/2013 12/21/2016 Obesity, [...] cath 09/201008/26/2011 12/21/2016 FOLLOWING SURGERY, UNSPECIFI ED ([facility] 08/25/2011) 08/26/2011 12/21/2016 ADVANCE DIRECTIVE INFORMATION 04/17/2011 12/21/2016 Overview: Yes, Patient instructed to provide copy of advance directive for provider to review and to be scanned into Electronic Medical Record ADVANCE DIRECTIVE INFORMATION 03/01/2011 12/21/2016 Overview: Yes, Patient instructed to provide copy of advance directive for provider to review and to be scanned into Electronic Medical Record [facility] V710 Clinical Trial*[id number] 12/22/2010 04/14/2011 S/P aortic valve replacement 12/01/2010 08/26/2011 S/P AORTIC VALVE REPLACEMENT - #25 pericardial Mc valve 11/01/2010 06/28/2018 Overview: Aortic valve replacement with #25 pericardial Mc valve, model 2800TFX, serial number [id number] (Dr. Walker) [facility] V710 Clinical Trial*[id number] 10/18/2010 11/21/2010 Body mass index (BMI) of [...] as of this encounter (statuses as of 01/15/2024) Immunizations Name Administration Dates Next Due COVID-19 mRNA, LNP-s, No Pre serve, 2-Dose Series (Moderna) 10/25/2021,02/16/2021,01/18/2021 HEP A - Hepatitis A (Adult > 18 yrs) 06/07/2018, 12/05/2017 Hepatitis B, 20+ yrs 06/07/2018,01/08/20 18,12/05/2017,06/15,10/27/2013,09/12/2013 Pneumococcal Conjugate Vacci ne, 20-valent ([id number]) 06/22/2023 Pneumococcal Polysaccharide PPV23 (Pneumovax) 01/02/2008 Seasonal [...] encounter Miscellaneous Notes * Telephone Encounter - Fred Daniel PHARM Tech - 01/15/2024 11:36 AM EDT Patient requesting refills for Fidaxomicin 200 MG Oral Tablet (Dificid). Upon chart review, medication is listed as as of 12/31/2023 . Please advise if you wish to continue this therapy for thepatient. Also requesting for a probiotic to be prescribed to help build health bacteria within her gut. Thank you, Daljit Daniel, Knife Operator Investigation Lieutenant 1 [facility] Services (CCPS) (Formerly Telepharmacy) 01/15/2024,11:36 AM documented in this encounter Plan of Treatment Upcoming Encounters Date Type Department Care Team (Late st Contact Info) Description 01/24/2024 2:45 PM EDT Office Visit Ophthalmology, [facility] [address] [facility] [place] [address] Ramsey Burnett DO [address] [place] [address] 01/30/2024 9:10 AM EDT Office Visit Pharmacy, [facility] [address] [facility] [place] [address] Pharmacist1, [facility] [address] [facility] [place] [address] 02/04/2024 10:20 AM EDT Office Visit Family Practice [facility] [address] [facility] [place] [address] Gregory Rausch MD [address] [facility] [place] [address] 02/13/2024 10:00 AM EDT Home Visit [facility] [address] [facility] [place] [address] Jaycee Sorto RN [address] [facility] [place] [address] 02/21/2024 9:00 AM EDT Office Visit Pharmacy, [facility] [address] [facility] [place] [address] Pharmacist1, [facility] [address] [facility] [place] [address] 06/03/2024 9:00 AM EDT Telemedicine Psychiatry, [place] [address] [place] [address] Janice Atwood MD [address] [place] [address] 07/17/2024 9:30 AM EDT Office Visit Cardiology, [facility] [address] [facility] [place] [address] Roberto Carlos Muniz DO [address] [facility] [place] [address] 11/27/2024 9:40 AM EST Office Visit Nephrology, [facility] [address] [facility] [place] [address] Fidelina Baumann MD [address] [facility] [place] [place] [address] Scheduled Procedures Name Priority Associated Diagnoses Date/Ti [...] Additional history exists CKD PHOS USE SMARTSET 74242 06/18/202405/26, 06/16/2023, 06/15/2023, Additional history exists GFR 07/09/2024 01/08/2024, 09/25, 08/02/2023, Additional history exists Diabetic Eye Exam 09/13/2024 09/13/2023, , 09/13/2023, Additional history exists B-12 09/18/2024 09/18/2023, 08/24, 2020, Additional history exists Albumin/Creatinine Ratio 01/07/2025 024, 03/09/2023, 12/22/2022, Additional history exists CKD HGB USE SMARTSET 02165 01/07/202501/07, 01/08/2024, 10/15/2023, Additional history exists TSH [...] this encounter Medical Devices Implanted Type Area Frame Table Operator Device Identifier Shelf Expiration Date Model / Serial / Lot Cath Roselia Single Lumen - [id number] Implanted:Qty : 1 on 03/12/2008 at OR [facility] Left: Chest [facility] *DO NOT USE* 07/25/2012 21-4053-24 / / [id number] Sut Steel 6 M654g - [id number] Implanted:Qty : 1 on 11/01/2010 at OR [facility] N/A: Chest DO NOT USE M654G / / Sut Steel 6 M654g - [id number] Implanted:Qty : 1 on 11/01/2010 at OR [facility] N/A: Chest DO NOT USE M654G / / Valve Tarsha Aortic [id number] - [id number] Implanted:Qty : 1 on 11/01/2010 at OR [facility] N/A: Heart [employer] DANIEL 05/20/2012 2800TFX-25 / / [id number] Mesh Soft [id number] - [id number] Implanted:Qty : 1 on 10/10/2019 by iGgi Hendrickson MD at OR [facility] N/A: Abdomen CR BARD : DAVOL [id number] 05/21/2024 [id number] / / [id number] Lens 22.5 Sn60wf - [id number] - [id number] Implanted:Qty : 1 on 09/15/2020 by Cece Roland MD at [facility] Right: Eye IVA : SURGICAL [id number] 05/13/2025 SN60 WF.225 / [id number] / [id number] Lens 21.5 Sn60wf - [id number] - [id number] Implanted:Qty : 1 on 12/19/2023 by Ramsey Burnett DO at OR [facility] Left: Eye IVA : SURGICAL 12/03/2024 SN60WF.2 15 / [id number] / documented as of this encounter [...] the patient have Health Care Power of Chip Unloader? No Full Code 10/10/2019 8:40 AM 10/10/2019 5:53 PM This order reflects the patients wishes and were consensually agreed upon. Healthcare Agents on File Name Relationship Healthcare Agent Relationshi p Communication Gigi Rose Adult Child Health Care Repr esentative (appointed verbally by patient or by statute hierarchy) Care Teams Fur Examiner Relationship Specialty Start Date End Date Gregory Rausch MD [address] [place] [address] PCP - General Family Medicine 02/12/20 documented as of this encounter
--- OUTSIDE RECORDS SUMMARY | 2024-06-05 14:57 | External Medical Summary | Summary of Care ---
Author Name Unknown Organization [facility] Address [address] [place] [address] Phone [phone] Care Team Providers Care Veneer Jointer Operator Name Role Phone Deon Rausch MD Primary Care Provider [phone] Reason for Visit * Reason Onset Date Comments Med Request 01/15/2024 Encounter Details Date Type Department Care Team (Late st Contact Info) Description 01/15/2024 Telephone Family Practice [facility] [address] [place] [address] [...] (Glucose)Indication s:DM type 2, not at goal ([facility]) 3 every 15 minutes until glucose is > 100 mg/dL for hypoglycemia E11.9 100 Tab 3 07/06/2021 Active Milestone ScientificTouch Verio w/Device Kit Use up to 4 times a day E11.9 1 Kit 0 02/10/2022 Active Milestone ScientificTouch Delica Lancets 33G TEST 4 TIMES DAILY [...] Additional Information Patient not taking.Reported on 01/08/2024 Milestone ScientificTouch Verio In Vitro Strip (Glucose Blood) [...] 11.9 1 Each 10/18/2023 Active Dexcom G6 SensorIndications:T ype 2 diabetes mellitus with hemoglobin A1c goal of less than 7.0% ([facility]) Use as directed. Use 1 sensor every [...] OTHER MEDICATIONS 90 Tablet 01/10/2024 Active Nystatin 278420 UNIT/GM External Powder (Nystop)Indications :Candidal intertrigo Apply topically to affected area 3 times a day. Apply to affected areas 60 g 1 01/10/2024 Active Aquaphor External Ointment Apply topically to affected area as needed for Dry Skin. Apply to face 420 g 0 01/10/2024 Active Gabapentin 100 MG Oral Capsule (Neurontin)Indicati ons:Polyneuropathy associated with underlying disease ([facility]) TAKE 1 CAPSULE BY MOUTH EVERY DAY [...] s:Heart failure, systolic, due to idiopathic cardiomyopathy ([facility]),S/P aortic valve replacement,HTN, goal below 140/80,Dyslipidemia , [...] before bedtime. 20 Tablet 0 01/15/2024 Active Fidaxomicin 200 MG Oral Tablet (Dificid) Take 1 Tablet by mouth in the morning and 1 Tablet before bedtime. Do all this for 10 days. 20 Tablet 0 12/21/2023 01/15/20 24 Discontinu ed(Refill) documented as of [...] 12/21/2016 Diabetes mellitus 01/05/2014 12/21/2016 LEYVA RESEARCH OTHER*[id number] 01/05/2014 12/21/2016 Axillary pain 11/03/2013 12/21/2016 Obesity, [...] 12/21/2016 FOLLOW[facility] 08/26/2011 12/21/2016 ADVANCE DIRECTIVE INFORMATION 04/17/2011 12/21/2016 Overview: Yes, Patient instructed to provide copy of advance directive for provider to review and to be scanned into Electronic Medical Record ADVANCE DIRECTIVE INFORMATION 03/01/2011 12/21/2016 Overview: Yes, Patient instructed to provide copy of advance directive for provider to review and to be scanned into Electronic Medical Record [facility] V710 Clinical Trial*[id number] 12/22/2010 04/14/2011 S/P aortic valve replacement 12/01/2010 08/26/2011 S/P AORTIC VALVE REPLACEMENT - #25 pericardial Mc valve 11/01/2010 06/28/2018 Overview: Aortic valve replacement with #25 pericardial Mc valve, model 2800TFX, serial number [id number] (Dr. Walker) [facility] V710 Clinical Trial*[id number] 10/18/2010 11/21/2010 Body mass index (BMI) of [...] 06/07/2018,01/08/20 18,12/05/2017,06/15,10/27/2013,09/12/2013 Pneumococcal Conjugate Vacci ne, 20-valent ([id number]) 06/22/2023 Pneumococcal Polysaccharide PPV23 (Pneumovax) 01/02/2008 Seasonal [...] Addendum Note - Deon Rausch MD - 01/15/2024 2:34 PM EDTAddended by: DEON RAUSCH on: 01/15/2024 02:34 PM Modules accepted: Orders * Addendum Note - Mary Almeida LPN - 01/15/2024 1:23 PM EDTAddended by: MARY ALMEIDA on: 01/15/2024 01:23 PM Modules accepted: Orders * Telephone Encounter - Mary Almeida LPN - 01/15/2024 1:17 PM EDT Pt is requesting pended medication, Fidaxomicin 200 MG Oral Tablet (Dificid). Previous instructions from Darek Junior on 12/21/23. " I have placed an order for fidaxomicin 200mg twice daily x 10 days. [facility]. Please start this as soon as possible and stop vancomycin." Please advise if script refill is necessary. * Telephone Encounter - Fred Daniel PHARM [...] within her gut. Thank you, Daljit Daniel, Senior Technical Analyst Train Conductor 1 Centralized Clinical Pharmacy Services (CCPS) (Formerly Telepharmacy) 01/15/2024,11:36 AM documented in this encounter Plan of Treatment Upcoming Encounters Date Type Department Care Team (Late st Contact Info) Description 01/24/2024 2:45 PM EDT Office Visit Ophthalmology, [facility] [address] [place] [address] Ramsey Burnett, [address] [facility] [place] [address] 01/30/2024 9:10 AM EDT Office Visit Pharmacy, [facility] [address] [place] [address] Pharmacist1, [facility] [address] [facility] [place] [address] 02/04/2024 10:20 AM EDT Office Visit Family Practice [facility] [address] [place] [address] Deon Rausch MD [address] [place] [address] 02/13/2024 10:00 AM EDT [facility] Visit [facility] [address] [place] [address] Jaycee Sorto, RN [address] [place] [address] 02/21/2024 9:00 AM EDT Office Visit Pharmacy, [facility] [address] [facility] [place] [address] Pharmacist1, [facility] [address] [facility] [place] [address] 06/03/2024 9:00 AM EDT Telemedicine Psychiatry, [place] [address] [place] [address] Janice Atwood MD [address] [place] [address] 07/17/2024 9:30 AM EDT Office Visit Cardiology, [facility] [address] [facility] [place] [address] Roberto Carlos Muniz, [address] [facility] [place] [address] 11/27/2024 9:40 AM EST Office Visit Nephrology, [facility] [address] [facility] [place] [address] Fidelina Baumann MD [address] [place] [address] Scheduled Procedures Name Priority Associated Diagnoses Date/Ti [...] Additional history exists CKD PHOS USE SMARTSET 76899 06/18/202405/26, 06/16/2023, 06/15/2023, Additional history exists GFR 07/09/2024 01/08/2024, 09/25, 08/02/2023, Additional history exists Diabetic Eye Exam 09/13/2024 09/13/2023, , 09/13/2023, Additional history exists B-12 09/18/2024 09/18/2023, 08/24, 2020, Additional history exists Albumin/Creatinine Ratio 01/07/2025 024, 03/09/2023, 12/22/2022, Additional history exists CKD HGB USE SMARTSET 32569 01/07/202501/07, 01/08/2024, 10/15/2023, Additional history exists TSH [...] encounter Medical Devices Implanted Type Area Director Workers Compensation Device Identifier Shelf Expiration Date Model / Serial / Lot Cath Roselia Single Lumen - [id number] Implanted:Qty : 1 on 03/12/2008 at OR [facility] Left: Chest [facility] *DO NOT USE* 07/25/2012 21-4053-24 / / [id number] Sut Steel 6 M654g - [id number] Implanted:Qty : 1 on 11/01/2010 at OR [facility] N/A: Chest DO NOT USE M654G / / Sut Steel 6 M654g - [id number] Implanted:Qty : 1 on 11/01/2010 at OR [facility] N/A: Chest DO NOT USE M654G / / Valve Tarsha Aortic [id number] - [id number] Implanted:Qty : 1 on 11/01/2010 at OR [facility] N/A: Heart [employer] DANIEL 05/20/2012 2800TFX-25 / / [id number] Mesh Soft [id number] - [id number] Implanted:Qty : 1 on 10/10/2019 by Gigi Hendrickson [place] [facility] [place]/A: Abdomen CR BARD : DAVOL [id number] 05/21/2024 [id number] / / [id number] Lens 22.5 Sn60wf - [id number] - [id number] Implanted:Qty : 1 on 09/15/2020 by Renaldo Cook, Cece Acosta MD at OR [facility] Right: Eye IVA : SURGICAL [id number] 05/13/2025 SN60 WF.225 / [id number] / [id number] Lens 21.5 Sn60wf - [id number] - [id number] Implanted:Qty : 1 on 12/19/2023 by Ramsey Burnett DO at OR [facility] Left: Eye IVA : SURGICAL 12/03/2024 SN60WF.2 15 / [id number] / documented as of this encounter [...] the patient have Health Care Power of J2Ee Consultant? No Full Code 10/10/2019 8:40 AM 10/10/2019 5:53 PM This order reflects the patients wishes and were consensually agreed upon. Healthcare Agents on File Name Relationship Healthcare Agent Relationshi p Communication Gigi Rose Adult Child Health Care Repr esentative (appointed verbally by patient or by statute hierarchy) Care Teams Veneer Jointer Operator Relationship Specialty Start Date End Date Deon Rausch MD [address] [place] [address] PCP - General Family Medicine 02/12/20 documented as of this encounter
--- OUTSIDE RECORDS SUMMARY | 2024-06-05 14:57 | External Medical Summary | Summary of Care ---
Author Name Unknown Organization [facility] Address [address] [place] [address] Phone [phone] Care Team Providers Care Auto Tune Up Mechanic Name Role Phone Deon Rausch MD Primary Care Provider [phone] Reason for Referral * Evaluate & Treat - Unlimited Visits (Within 10 days (routine)) - Pending Review Specialty Diagnoses / Procedures Referred By Contrahul wasserman Referred To Contact Frame Bender Diagnoses Uncontrolled hypertension White coat syndrome with diagnosis of hypertension Jasvir Sun MD [address] [facility] [place] [address] Referral ID Status Reason Start Date Expiration Date Visits Requested Visits Authorized [id number] Pending Review Specialty Services Required 01/08/2024 1 [...] Visit Nephrology, [facility] [place] [address] [place] [address] Jasvir Sun MD [address] [place] [address] Uncontrolled hypertension*; History of acute renal [...] ER 10 MEQ Oral Tablet Extended ReleaseIndications:Ac tolowa dee-ni' on chronic heart failure with preserved ejection [...] than 7.0% ([facility]) Use up to 50 units per [...] 24 Discontinu ed(Patient preference /discontin uation) Nystatin 274985 UNIT/GM External Powder (Nystop)Indications:C andidal intertrigo Apply [...] [facility]),Type 2 diabetes mellitus with diabetic mononeuropathy, with long-term current use of insulin (HCC),Type 2 diabetes mellitus with both eyes affected by mild nonproliferative retinopathy and macular edema, with long-term current use of insulin ([facility]),Type 2 diabetes mellitus with stage 3a chronic kidney disease, with long-term current use of insulin ([facility]) Inject 2 mg under the skin [...] eye 09/28/2020 Coronary artery disease invo lving [place] coronary artery of [place] heart without angina pectoris 12/16/2019 Last Assessment [...] 12/21/2016 Diabetes mellitus 01/05/2014 12/21/2016 LEYVA RESEARCH OTHER*[id number] 01/05/2014 12/21/2016 Axillary pain 11/03/2013 12/21/2016 Obesity, [...] FOLLOWING SURGERY, UNSPECIFI ED ([facility] 08/25/2011) 08/26/2011 12/21/2016 ADVANCE DIRECTIVE INFORMATION 04/17/2011 12/21/2016 Overview: Yes, Patient instructed to provide copy of advance directive for provider to review and to be scanned into Electronic Medical Record ADVANCE DIRECTIVE INFORMATION 03/01/2011 12/21/2016 Overview: Yes, Patient instructed to provide copy of advance directive for provider to review and to be scanned into Electronic Medical Record [facility] V710 Clinical Trial*[id number] 12/22/2010 04/14/2011 S/P aortic valve replacement 12/01/2010 08/26/2011 S/P AORTIC VALVE REPLACEMENT - #25 pericardial Mc valve 11/01/2010 06/28/2018 Overview: Aortic valve replacement with #25 pericardial Mc valve, model 2800TFX, serial number [id number] (Dr. Walker) [facility] V710 Clinical Trial*[id number] 10/18/2010 11/21/2010 Body mass index (BMI) of [...] 06/07/2018,01/08/20 18,12/05/2017,06/15,10/27/2013,09/12/2013 Pneumococcal Conjugate Vacci ne, 20-valent ([id number]) 06/22/2023 Pneumococcal Polysaccharide PPV23 (Pneumovax) 01/02/2008 Seasonal [...] 10:04 AM EDT NEPHROLOGY CLINIC NOTE [facility] [place] [place] [address] [place], [place] [address]le[place] [facility] [address] 01/08/2024, 10:04 AM Patient Name: Jovita Rose BACKGROUND: 63 year old female presents for f/u of [facility] c/s oct neph for low Na and [...] and early 2023: -May [address] [facility] with abdominal pain melena and then was transferred to [facility] where she was from June 06 to with concern for pneumoperitoneum. She underwent 2 ex lap procedures finding no evidence of perforation. Hospital course at [facility] complicated by C diff infection, COVID-19 infection, splenic infarcts. Discharge to [facility] June 22, 2023 -June 2023 admitted to [facility] in [place] from June 25 to with melena and coffee-ground emesis needing 4 units of packed red cells and with endoscopy showing multiple transverse left sigmoid colon ulcers compatible with ischemic etiology. Patient was discharged to a [facility] and then in late August early September she was discharged home Her baseline creatinine is somewhat difficult to pin down as of October 2023 since there are few outpatient data points. It appears however that baseline is about 0.9-1.0 creatinine for the past fewyears with an estimated GFR of about 70. She presented [facility] October 27 2023 with sodium 121 blood [...] and then readmitted November 10 to the [facility] with C diff diarrhea and generalized weakness TODAY 01/08/2024: Acc by chaim Brown today. No labs since hospital dc/ Drinks [...] mg/dL for hypoglycemia E11.9 100 Tab 3 Novint Technologiesuch Verio w/Device Kit Use up to 4 times a day E11.9 1 Kit 0 Animeeple DelBon-Privé Lancets 33G TEST 4 TIMES DAILY DIRECTED, [...] feet once daily. 400 g 3 Nystatin 038502 UNIT/GM External Powder (Nystop) Apply topically to [...] 07/09/2024). | Check-out note: Waitlist Labs at [facility] Uncontrolled hypertension today with blood pressures [...] separately billed services. Jasvir Sun MD Nephrology, [address] [address] CC: Ref: DEON RAUSCH[[id number]] [address] [facility] [place] [address] (office) [phone] (fax) PCP: DEON RAUSCH [address] [place] [address] [phone] This chart was completed in part utilizing Book&Table Speech Voice Recognition Software. Randomword insertions, pronoun [...] for C Diff Pt was seen inpatient [facility] in [place] with abd surgery Last labs 10/15/23 Denies [...] Visit Care Coordination and Integration [address] [place] [address] Angelica Navas, Community [facility] Ultimate Hoops Referee [address] [place] [address] 01/24/2024 2:45 PM EDT Office Visit Ophthalmology, [facility] [address] [place] [address] Ramsey Burnett DO [address] [place] [address] 01/30/2024 9:10 AM EDT Office Visit Pharmacy, [facility] 200 [place] [address] Pharmacist1, [facility] [address] [facility] [place] [address] 02/04/2024 10:20 AM EDT Office Visit Family Practice [facility] [address] [address] Deon Rausch MD [address] [place] [address] 02/13/2024 10:00 AM EDT Home Visit [place] at [place], [facility] [address] [address] Jaycee Sorto, RN [address] [address] 02/21/2024 9:00 AM EDT Office Visit Pharmacy, [facility] [address] [facility] [place] [address] Pharmacist1, [facility] [address] [facility] [place] [address] 06/03/2024 9:00 AM EDT Telemedicine Psychiatry, [facility] [address] [place] [address] Janice Atwood MD [address] [place] [address] 07/17/2024 9:30 AM EDT Office Visit Cardiology, [facility] [address] [place] [address] Roberto Carlos Muniz, [address] [place] [address] 11/27/2024 9:40 AM EST Office Visit Nephrology, [facility] [address] [facility] [place] [address] Jasvir Sun MD [address] [facility] [place] [address] Scheduled Procedures Name Priority Associated Diagnoses Date/Ti [...] Additional history exists CKD PHOS USE SMARTSET 32076 06/18/202405/26, 06/16/2023, 06/15/2023, Additional history exists GFR 07/09/2024 01/08/2024, 09/25, 08/02/2023, Additional history exists Diabetic Eye Exam 09/13/2024 09/13/2023, , 09/13/2023, Additional history exists B-12 09/18/2024 09/18/2023, 08/24, 2020, Additional history exists Albumin/Creatinine Ratio 01/07/2025 024, 03/09/2023, 12/22/2022, Additional history exists CKD HGB USE SMARTSET 25155 01/07/202501/07, 01/08/2024, 10/15/2023, Additional history exists TSH [...] this encounter Medical Devices Implanted Type Area Photogrammetric Surveyor Device Identifier Shelf Expiration Date Model / Serial / Lot Cath Roselia Single Lumen - [id number] Implanted:Qty : 1 on 03/12/2008 at OR [facility] Left: Chest [facility] [place] *DO NOT USE* 07/25/2012 21-4053-24 / / [id number] Sut Steel 6 M654g - [id number] Implanted:Qty : 1 on 11/01/2010 at OR [facility] N/A: Chest DO NOT USE M654G / / Sut Steel 6 M654g - [id number] Implanted:Qty : 1 on 11/01/2010 at OR [facility] N/A: Chest DO NOT USE M654G / / Valve Tarsha Aortic [id number] - [id number] Implanted:Qty : 1 on 11/01/2010 at OR [facility] N/A: Heart [employer] DANIEL 05/20/2012 2800TFX-25 / / [id number] Mesh Soft 76j10ml - [id number] Implanted:Qty : 1 on 10/10/2019 by Gigi Hendrickson [place] [facility] [place]/A: Abdomen CR BARD : DAVOL [id number] 05/21/2024 [id number] / / [id number] Lens 22.5 Sn60wf - [id number] - [id number] Implanted:Qty : 1 on 09/15/2020 by Cece Roland MD at OR [facility] Right: Eye IVA : SURGICAL [id number] 05/13/2025 SN60 WF.225 / [id number] / [id number] Lens 21.5 Sn60wf - [id number] - [id number] Implanted:Qty : 1 on 12/19/2023 by Ramsey Burnett DO at OR [facility] Left: Eye IVA : SURGICAL 12/03/2024 SN60WF.2 15 / [id number] / documented as of this encounter [...] 78 mmol/L 01/08/2024 5:42 PM EDT [facility] Potassium, Random Urine 50.2 mmol/L 01/08/2024 5:42 PM EDT [facility] Chloride, Random Urine 93 mmol/L 01/08/2024 5:42 PM EDT [facility] Urine Non-blood Collection / Unknown 01/08/2024 12:29 PM EDT 01/08/2024 12:29 PM EDT Jasvir Sun MD LAB URINE ORDERAB LES Performing Organization Address City/[facility]/ZIP Co de Phone Number [facility] [address] [place] [address] * OSMOLALITY, URINE (01/08/2024 12:29 PM EDT) Osmolality, Urine 378 50 - 1,200 mOsm/kg 01/08/2024 5:35 PM EDT [facility] Urine Urine specimen obtained by clean catch procedure / Unknown Non-blood Collection / Unknown 01/08/2024 12:29 PM EDT 01/08/2024 12:29 PM EDT Jasvir Sun MD LAB URINE ORDERAB LES Performing Organization Address [facility] Co de Phone Number [facility] [address] [place] [address] * (ABNORMAL) ALBUMIN / CREATININE RATIO, URINE (01/08/2024 12:29 PM EDT) Albumin, Random Urine 5.53 mg/dL 01/08/2024 5:55 PM EDT [facility] Creatinine, Random Urine 58 mg/dL 01/08/2024 5:55 PM EDT [facility] Albumin / Creatinine Ratio, Urine 95(H) <30 mg/g Creat 01/08/2024 5:55 PM EDT [facility] Urine Urine specimen obtained by clean catch procedure / Unknown Non-blood Collection / Unknown 01/08/2024 12:29 PM EDT 01/08/2024 12:29 PM EDT Narrative [facility] - 01/08/2024 5:55 PM EDT Normal: <30 mg/g creatinine High: 30-300 mg/g creatinine Very High: >300 mg/g creatinine Nephrotic: >2200 mg/g creatinine Jasvir Sun MD LAB URINE ORDERAB LES Performing Organization Address City/[facility]/ZIP Co de Phone Number [facility] [address] [place] [address] * (ABNORMAL) URINALYSIS WITH MICROSCOPIC EXAM (01/08/2024 [...] PM EDT LABORATORY [place] [address] Specific [place], Urine 1.015 1.003 - 1.030 01/08/2024 1:43 [...] Sun MD LAB URINE ORDERAB LES LABORATORY [facility] [place] 57-10 [address] [place] [address] * DIFFERENTIAL, TECHNOLOGIST REVIEW (01/08/2024 12:22 PM EDT) Pathologist [facility] nRs 01/08/2024 2:02 PM EDT LAB[facility]ATORY [place] 57-10 Blood Venous blood specimen / Unknown Venipuncture / Unknown 01/08/2024 12:22 PM EDT 01/08/2024 12:22 PM EDT Jasvir Sun MD LAB BLOOD ORDERAB LES [facility] [place] [address] [facility] [place] [address] * (ABNORMAL) DIFFERENTIAL, AUTOMATED (01/08/2024 12:22 PM [...] 4.80 K/ul 01/08/2024 2:02 PM EDT [facility]10 Absolute Monocytes 0.63 0.00 - 1.10 [...] Sun MD LAB BLOOD ORDERAB LES LABORATORY [place] 57-[address] [place] [address] * CBC (01/08/2024 12:22 PM EDT) WBC 9.14 4.00 - 10.80 K/uL 01/08/2024 2:02 PM EDT LABORATORY [place] 57-10 RBC 4.66 3.85 - 5.15 M/uL 01/08/2024 2:02 PM EDT LABORATORY [place] 57-10 HGB 12.4 12.0 - 15.3 g/dL 01/08/2024 2:02 PM EDT LABORATORY [place] 57-10 HCT 37.0 36.0 - 45.2 % 01/08/2024 2:02 PM EDT LABORATORY [place] 57-10 MCV 79.4 81.5 - 97.5 fL 01/08/2024 2:02 PM EDT LABORATORY [place] 57-10 MCH 26.6 27.0 - 34.0 pg [...] ORDERAB LES LABORATORY [place] [address] [place] [address] * TSH WITH FREE T4 IF INDICATED (01/08/2024 12:22 PM EDT) Pathologist [facility] TSH 1.80 0.27 - 4.20 uIU/mL 01/08/2024 10:19 PM EDT [facility] Blood Venous blood specimen / Unknown Venipuncture / Unknown 01/08/2024 12:22 PM EDT 01/08/2024 12:22 PM EDT Jasvir Sun MD LAB BLOOD ORDERAB LES [facility] [address] [place] [address] * OSMOLALITY, SERUM (01/08/2024 12:22 PM EDT) Osmolality, Serum 292 278 - 305 mOsm/kg 01/08/2024 5:58 PM EDT [facility] Blood Venous blood specimen / Unknown Venipuncture / Unknown 01/08/2024 12:22 PM EDT 01/08/2024 12:22 PM EDT Jasvir uSn MD LAB BLOOD ORDERAB LES [facility] [address] [place] [address] * (ABNORMAL) COMPREHENSIVE METABOLIC PANEL (01/08/2024 12:22 [...] LAB BLOOD ORDERAB LES Performing Organization Address City/State/[facility] Co de Phone Number LABORATORY [place] [address] [place] [address] documented in this encounter Visit Diagnoses Diagnosis [...] the patient have Health Care Power of Shrub Grower? No Full Code 10/10/2019 8:40 AM 10/10/2019 5:53 PM This order reflects the patients wishes and were consensually agreed upon. Healthcare Agents on File Name Relationship Healthcare Agent [facility] p Communication Gigi Gutierrez [facility] Adult Child Health Care Repr esentative (appointed verbally by patient or by statute hierarchy) Care Teams Auto Tune Up Mechanic Relationship Specialty Start Date End Date Deon Rausch MD [address] [place] [address] PCP - General Family Medicine 02/12/20 documented as of this encounter
--- OUTSIDE RECORDS SUMMARY | 2024-06-05 14:57 | External Medical Summary | Summary of Care ---
Author Name Unknown Organization [facility] Address [address] [place] [address] Phone [phone] Care Team Providers Care Vehicle And Equipment Cleaner Name Role Phone Gregory Rausch MD Primary Care Provider [phone] Reason for Visit * Reason Onset Date Comments Med Request 01/15/2024 Encounter Details Date Type Department Care Team (Late st Contact Info) Description 01/15/[address] [facility] [address] [place] [address] Gregory Rausch MD [address] [...] hypoglycemia E11.9 100 Tab 3 07/06/2021 Active ExaprotectTouch Verio w/Device Kit Use up to 4 [...] ([facility]) Use as directed. Use 1 transmitter every 90 days E 11.9 1 Each 10/18/2023 Active Dexcom G6 SensorIndications:Ty pe 2 diabetes mellitus with hemoglobin A1c goal of less than 7.0% ([facility]) Use as directed. Use 1 sensor every [...] [facility]) Inject 30 Units under the skin in [...] MEDICATIONS 90 Tablet 2 01/10/2024 Active Nystatin 756293 UNIT/GM External Powder (Nystop)Indications: Candidal intertrigo Apply topically to affected area 3 times a day. Apply to affected areas 60 g 1 01/10/2024 Active Aquaphor External Ointment Apply topically to affected area as needed for Dry Skin. Apply to face 420 g 0 01/10/2024 Active Gabapentin 100 MG Oral Capsule (Neurontin)Indicatio ns:Polyneuropathy associated with underlying disease ([facility]) TAKE 1 CAPSULE BY MOUTH EVERY DAY [...] eye 09/28/2020 Coronary artery disease invo lving [place] coronary artery of [place] heart without angina pectoris 12/16/2019 Last Assessment [...] 12/21/2016 Diabetes mellitus 01/05/2014 12/21/2016 LEYVA RESEARCH OTHER*[id number] 01/05/2014 12/21/2016 Axillary pain 11/03/2013 12/21/2016 Obesity, [...] [facility] V710 Clinical Trial*[id number] 12/22/2010 04/14/2011 S/P aortic valve replacement 12/01/2010 08/26/2011 S/P AORTIC VALVE REPLACEMENT - #25 pericardial Mc valve 11/01/2010 06/28/2018 Overview: Aortic valve replacement with #25 pericardial Mc valve, model 2800TFX, serial number [id number] (Dr. Walker) [facility] V710 Clinical Trial*[id number] 10/18/2010 11/21/2010 Body mass index (BMI) of [...] 06/07/2018,01/08/20 18,12/05/2017,06/15,10/27/2013,09/12/2013 Pneumococcal Conjugate Vacci ne, 20-valent ([id number]) 06/22/2023 Pneumococcal Polysaccharide PPV23 (Pneumovax) 01/02/2008 Seasonal [...] encounter Miscellaneous Notes * Addendum Note - Mary Almeida LPN [...] x 10 days. Order was sent to [facility]. Please start this as soon as possible and stop vancomycin." Please advise if script refill is necessary. * Telephone Encounter - Fred Daniel, system auditor - 01/15/2024 11:36 AM EDT Patient requesting refills for Fidaxomicin 200 MG Oral Tablet (Dificid). Upon chart review, medication is listed as as of 12/31/2023 . Please advise if you wish to continue this therapy for thepatient. Also requesting for a probiotic to be prescribed to help build health bacteria within her gut. Thank you, Daljit Daniel, Waistband Setter Lockstitch Retail Salesworker 1 [facility] ([facility]) (Formerly Telepharmacy) 01/15/2024,11:36 AM documented in this encounter Plan of Treatment Upcoming Encounters Date Type Department Care Team (Late st Contact Info) Description 01/24/2024 2:45 PM EDT Office Visit Ophthalmology, [facility] [address] [place] [address] Ramsey Burnett DO [address] [place] [address] 01/30/2024 9:10 AM EDT Office Visit Pharmacy, [facility] [address] [place] [address] Pharmacist1, [facility] [address] [facility] [place] [address] 02/04/2024 10:20 AM EDT Office Visit Family Practice [facility] [address] [place] [address] Gregory Rausch MD [address] [place] [address] 02/13/2024 10:00 AM EDT Home Visit sim at [place] [address] [address] Jaycee Sorto, RN [address] [place] [address] 02/21/2024 9:00 AM EDT Office Visit Pharmacy, [facility] [address] [place] [address] [address] Pharmacist1, [facility] [address] [place] [address] 06/03/2024 9:00 AM EDT Telemedicine Psychiatry, [place] [address] [place] [address] Janice Atwood MD [address] [place] [address] 07/17/2024 9:30 AM EDT Office Visit Cardiology, [facility] [address] [facility] [place] [address] Roberto Carlos Muniz, [address] [place] [address] 11/27/2024 9:40 AM EST Office Visit Nephrology, [facility] 200 [facility] [place] [address] Fidelina Baumann MD [address] [facility] [place] [address] Scheduled Procedures Name Priority Associated Diagnoses Date/Ti [...] Additional history exists CKD PHOS USE SMARTSET 76338 06/18/202405/26, 06/16/2023, 06/15/2023, Additional history exists GFR 07/09/2024 01/08/2024, 09/25, 08/02/2023, Additional history exists Diabetic Eye Exam 09/13/2024 09/13/2023, , 09/13/2023, Additional history exists B-12 09/18/2024 09/18/2023, 08/24, 2020, Additional history exists Albumin/Creatinine Ratio 01/07/2025 024, 03/09/2023, 12/22/2022, Additional history exists CKD HGB USE SMARTSET 02639 01/07/202501/07, 01/08/2024, 10/15/2023, Additional history exists TSH [...] this encounter Medical Devices Implanted Type Area Roof Panel Hanger Device Identifier Shelf Expiration Date Model / Serial / Lot Cath Roselia Single Lumen - [id number] Implanted:Qty : 1 on 03/12/2008 at [facility] Left: Chest [facility] [employer] *DO NOT USE* 07/25/2012 21-4053-24 / / [id number] Sut [facility] 6 M654g - [id number] Implanted:Qty : 1 on 11/01/2010 at OR [facility] N/A: Chest DO NOT USE M654G / / Sut Steel 6 M654g - [id number] Implanted:Qty : 1 on 11/01/2010 at OR [facility] N/A: Chest DO NOT USE M654G / / Valve Tarsha Aortic [id number] - [id number] Implanted:Qty : 1 on 11/01/2010 at OR [facility] N/A: Heart [employer] DANIEL 05/20/2012 2800TFX-25 / / [id number] Mesh Soft [id number] - [id number] Implanted:Qty : 1 on 10/10/2019 by Gigi Hendrickson [place] [facility] [place]A: Abdomen CR BARD : DAVOL [id number] 05/21/2024 [id number] / / [id number] Lens 22.5 Sn60wf - [id number] - [id number] Implanted:Qty : 1 on 09/15/2020 by Renaldo Cook, Cece Acosta MD at [facility] Right: Eye IVA : SURGICAL [id number] 05/13/2025 SN60 WF.225 / [id number] / [id number] Lens 21.5 Sn60wf - [id number] - [id number] Implanted:Qty : 1 on 12/19/2023 by Ramsey Burnett DO at OR [facility] Left: Eye IVA : SURGICAL 12/03/2024 SN60WF.2 15 / [id number] / documented as of this encounter [...] patient have Health Care Power of Cloth Winding Supervisor? No Full Code 10/10/2019 8:40 AM 10/10/2019 5:53 PM This order reflects the patients wishes and were consensually agreed upon. Healthcare Agents on File Name Relationship Healthcare Agent Relationshi p Communication Gigi Rose Adult Child Health Care Repr esentative (appointed verbally by patient or by statute hierarchy) Care Teams Vehicle And Equipment Cleaner Relationship Specialty Start Date End Date Gregory Rausch MD [address] [place] [address] PCP - General Family Medicine 02/12/20 documented as of this encounter
--- OUTSIDE RECORDS SUMMARY | 2024-06-05 14:57 | External Medical Summary | Summary of Care ---
Author Name Unknown Organization [facility] Address [address] [place] [address] Phone [phone] Care Team Providers Care Instrumental Musician Name Role Phone Gregory Rausch MD Primary Care Provider [phone] Reason for Visit * Reason Onset Date Comments Appointment 01/17/2024 Encounter Details Date Type Department Care Team (Late st Contact Info) Description 01/17/2024 Telephone [facility], [place] [address] [place] [address] Services, Scheduling [address] [place] [address] Appointment (//) Allergies Active Allergy Reactions Criticality [...] day E11.9 1 Kit 0 02/10/2022 Active Global Green Capitals CorporationTouch Delica Lancets 33G TEST 4 TIMES DAILY [...] than 7.0% ([facility]) Use as directed. Use 1 transmitter every 90 days E 11.9 1 Each 10/18/2023 Active Dexcom G6 SensorIndications:Ty pe 2 diabetes mellitus with hemoglobin A1c goal of less than 7.0% ([facility]) Use as directed. Use 1 sensor [...] of insulin ([facility]) Inject 30 Units under the skin [...] MEDICATIONS 90 Tablet 2 01/10/2024 Active Nystatin 547854 UNIT/GM External Powder (Nystop)Indications: Candidal intertrigo Apply [...] eye 09/28/2020 Coronary artery disease invo lving jena coronary artery of jena heart without angina pectoris 12/16/2019 Last Assessment [...] 12/21/2016 Diabetes mellitus 01/05/2014 12/21/2016 LEYVA RESEARCH OTHER*[id number] 01/05/2014 12/21/2016 Axillary pain 11/03/2013 12/21/2016 Obesity, [...] to be scanned into Electronic Medical Record Amazing Photo Letters V710 Clinical Trial*[id number] 12/22/2010 04/14/2011 S/P aortic valve replacement 12/01/2010 08/26/2011 S/P AORTIC VALVE REPLACEMENT - #25 pericardial Mc valve 11/01/2010 06/28/2018 Overview: Aortic valve replacement with #25 pericardial Mc valve, model 2800TFX, serial number [id number] (Dr. Walker) [facility] V710 Clinical Trial*[id number] 10/18/2010 11/21/2010 Body mass index (BMI) of [...] 06/07/2018,01/08/20 18,12/05/2017,06/15,10/27/2013,09/12/2013 Pneumococcal Conjugate Vacci ne, 20-valent ([id number]) 06/22/2023 Pneumococcal Polysaccharide PPV23 (Pneumovax) 01/02/2008 Seasonal [...] Telephone Encounter - Margaux Ugalde OSA - 01/17/2024 1:37 PM EDT Request to send Darek for visit I found tomorrow at 11 and called and she was agreeable documented in this encounter Plan of Treatment Upcoming Encounters Date Type Department Care Team (Late st Contact Info) Description 01/18/2024 11:00 AM EDT Home Visit [facility] at [facility] [address] [address] Darek Junior PA-C [address] [place] [address] 01/24/2024 2:45 PM EDT Office Visit Ophthalmology, [facility] [address] [address] Ramsey Burnett DO [address] [address] 01/30/2024 9:10 AM EDT Office Visit Pharmacy, [facility] [address] [facility] [address] Pharmacist1, [facility] [address] [facility] [place] [address] 02/04/2024 10:20 AM EDT Office Visit Family Practice [facility] 132 [facility] [place] [address] Gregory Rausch MD 132 [place] [address] 02/13/2024 10:00 AM EDT Home Visit [facility], [facility] [address] [facility] [place] [address] Jaycee Sorto RN 132 [place] [address] 02/21/2024 9:00 AM EDT Office Visit Pharmacy, [facility] [place] [address] Pharmacist1, [facility] 200 [facility] [place] [address] 06/03/2024 9:00 AM EDT Telemedicine Psychiatry, [place] [address] [place] [address] Janice Atwood MD [address] [place] [address] 07/17/2024 9:30 AM EDT Office Visit Cardiology, [facility] [address] [facility] [place] [address] Roberto Carlos Muniz DO 132 [facility] [place] [address] 11/27/2024 9:40 AM EST Office Visit Nephrology, [facility] [address] [place] [address] Fidelina Baumann MD [address] [facility] [place] [address] Scheduled Procedures Name Priority Associated Diagnoses Date/Ti [...] Additional history exists CKD PHOS USE SMARTSET 82823 06/18/202405/26, 06/16/2023, 06/15/2023, Additional history exists GFR 07/09/2024 01/08/2024, 09/25, 08/02/2023, Additional history exists Diabetic Eye Exam 09/13/2024 09/13/2023, , 09/13/2023, Additional history exists B-12 09/18/2024 09/18/2023, 08/24, 2020, Additional history exists Albumin/Creatinine Ratio 01/07/2025 024, 03/09/2023, 12/22/2022, Additional history exists CKD HGB USE SMARTSET 79036 01/07/202501/07, 01/08/2024, 10/15/2023, Additional history exists TSH [...] this encounter Medical Devices Implanted Type Area Button Maker And Installer Device Identifier Shelf Expiration Date Model / Serial / Lot Cath Roselia Single Lumen - [id number] Implanted:Qty : 1 on 03/12/2008 at OR [facility] Left: Chest [facility] *DO NOT USE* 07/25/2012 21-4053-24 / / [id number] Sut Steel 6 M654g - [id number] Implanted:Qty : 1 on 11/01/2010 at OR [facility] N/A: Chest DO NOT USE M654G / / Sut Steel 6 M654g - [id number] Implanted:Qty : 1 on 11/01/2010 at OR [facility] N/A: Chest DO NOT USE M654G / / Valve Tarsha Aortic [id number] - [id number] Implanted:Qty : 1 on 11/01/2010 at OR [facility] N/A: Heart [employer] DANIEL 05/20/2012 2800TFX-25 / / [id number] Mesh Soft 20w59pz - [id number] Implanted:Qty : 1 on 10/10/2019 by Gigi Hendrickson MD at OR [facility] [place] N/A: Abdomen CR BARD : DAVOL [id number] 05/21/2024 [id number] / / [id number] Lens 22.5 Sn60wf - [id number] - [id number] Implanted:Qty : 1 on 09/15/2020 by Cece Roland MD at OR [facility] Right: Eye IVA : SURGICAL [id number] 05/13/2025 SN60 WF.225 / [id number] / [id number] Lens 21.5 Sn60wf - [id number] - [id number] Implanted:Qty : 1 on 12/19/2023 by Ramsey Burnett DO at OR [facility] Left: Eye IAV : SURGICAL 12/03/2024 SN60WF.2 15 / [id number] / documented as of this encounter [...] the patient have Health Care Power of Audit Officer? No Full Code 10/10/2019 8:40 AM 10/10/2019 5:53 PM This order reflects the patients wishes and were consensually agreed upon. Healthcare Agents on File Name Relationship Healthcare Agent Relationshi p Communication Gigi Rose Adult Child Health Care Repr esentative (appointed verbally by patient or by statute hierarchy) Care Teams Instrumental Musician Relationship Specialty Start Date End Date Gregory Rausch MD [address] [place] [address] PCP - General Family Medicine 02/12/20 documented as of this encounter
--- OUTSIDE RECORDS SUMMARY | 2024-06-05 14:58 | External Medical Summary | Summary of Care ---
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) Allergies Active Allergy Reactions Criticality Noted Date Comments Adhesive Tape 07/02/2017 Can tolerate band-aids Glycerin Other (Please comment) 03/12/2008 Topical agents with glycein-burning & itching Lactose 12/09/2014 Dairy - gas Lisinopril Cough 01/21/2010 Monosodium Glutamate Edema Other 03/12/2008 Hands and feet Penicillins Rash 11/14/2007 documented as of this encounter (statuses as of 01/11/2024) Medications Medication Sig Dispensed Refills Start Date [...] Additional Information Patient not taking.Reported on 01/08/2024 PaperfoldTouch Verio In Vitro Strip (Glucose Blood) Use [...] OTHER MEDICATIONS 90 Tablet 01/10/2024 Active Nystatin 447850 UNIT/GM External Powder (Nystop)Indications: Candidal intertrigo Apply [...] as of this encounter (statuses as of 01/11/2024) Active Problems Problem Noted Date Diagnosed Date [...] eye 09/28/2020 Coronary artery disease invo lving rampart coronary artery of rampart heart without angina pectoris 12/16/2019 Last Assessment [...] as of this encounter (statuses as of 01/11/2024) Resolved Problems Problem Noted Date Diagnosed Date [...] 12/21/2016 Diabetes mellitus 01/05/2014 12/21/2016 LEYVA RESEARCH OTHER*[id number] 01/05/2014 12/21/2016 Axillary pain 11/03/2013 12/21/2016 Obesity, [...] cath 09/201008/26/2011 12/21/2016 FOLLOWING SURGERY, UNSPECIFI ED ([facility] 08/25/2011) 08/26/2011 12/21/2016 ADVANCE DIRECTIVE INFORMATION 04/17/2011 12/21/2016 Overview: Yes, Patient instructed to provide copy of advance directive for provider to review and to be scanned into Electronic Medical Record ADVANCE DIRECTIVE INFORMATION 03/01/2011 12/21/2016 Overview: Yes, Patient instructed to provide copy of advance directive for provider to review and to be scanned into Electronic Medical Record [facility] V710 Clinical Trial*[id number] 12/22/2010 04/14/2011 S/P aortic valve replacement 12/01/2010 08/26/2011 S/P AORTIC VALVE REPLACEMENT - #25 pericardial Mc valve 11/01/2010 06/28/2018 Overview: Aortic valve replacement with #25 pericardial Mc valve, model 2800TFX, serial number [id number] (Dr. Walker) [facility] V710 Clinical Trial*[id number] 10/18/2010 11/21/2010 Body mass index (BMI) of [...] as of this encounter (statuses as of 01/11/2024) Immunizations Name Administration Dates Next Due COVID-19 mRNA, LNP-s, No Pre serve, 2-Dose Series (Moderna) 10/25/2021,02/16/2021,01/18/2021 HEP A - Hepatitis A (Adult > 18 yrs) 06/07/2018, 12/05/2017 Hepatitis B, 20+ yrs 06/07/2018,01/08/20 18,12/05/2017,06/15,10/27/2013,09/12/2013 Pneumococcal Conjugate Vacci ne, 20-valent ([id number]) 06/22/2023 Pneumococcal Polysaccharide PPV23 (Pneumovax) 01/02/2008 Seasonal [...] Telephone Encounter - Lauro Self RPh - 01/11/2024 10:36 AM EDT Referral reviewed and is appropriate. Please schedule. Initial appt length: n/a Appointment type indicated: TelePHONIC Preferred Clinic for Appointment: [facility] Patient referred to [facility] clinic for hypertension on behalf of Fidelina Baumann MD. Referral reviewed and relevant pre-visit information listed below: HTN: Relevant history obtained from referral: Average BP over 7 days > 140/90 Singular Systolic BP Reading < 90 or > 180 Singular Diastolic BP Reading <50 or > 120 BP Readings from Last 3 Encounters: 01/08/24 152/74 01/08/24 156/72 01/02/24 132/62 Current HTN Medications: Metoprolol tartrate 25mg BID Follow-up as scheduled. Lauro Self RPh 01/11/2024, 10:37 AM * Telephone Encounter - Luciana Shields PHARM Tech - 01/11/2024 10:22 AM EDT Patient has been successfully enrolled to the [id number] hypertension self- management program.Standard alarm settings for this patient have been set as follows: Average BP over 7 days > 140/90 Singular Systolic BP Reading < 90 or > 180 Singular Diastolic BP Reading <50 or > 120 Patient has been advised to take blood pressure daily. Please let us know if you would like any of the parameters or instructions altered for this patient. Pharmacist Medication Therapy Management: Minimum frequency patient should be seen in person for medication management: as appropriate per clinical condition and patient status By my signature, I understand that my patient Jovita Rose will have her medication therapy managed by the [facility] Medication Therapy Disease Management [facility] ([facility]) per established policies,procedures, and protocols. I also certify that this referral may serve as an initiation of service for the management of drug therapy in the above noted patient. [facility] providers will be responsible for scheduling patient visits, obtaining appropriate laboratory studies, and adjusting medication management therapy per patient's need, in addition to those roles spelled out in the clinic policy, procedures, and drug management protocols. I understand that the service provided by the [facility] Clinic is voluntary and have informed patient that they can refuse the service at their discretion. I am aware that the [facility] Clinic will provide me with a copy of the patient encounter via my [employer]. I authorize the [facility] Clinic to carry out these activities on my behalf. I consider this program to be a necessary part of the patient's medical care. Debo Antonio, PRABHA Order Specific Questions Referral Priority Within 10 days (routine) [facility] Referring Provider Role: Specialist Specialty: Nephro Reason for Referral: HTN Goal BP: < 140/90 documented in this encounter Plan of Treatment Upcoming Encounters Date Type Department Care Team (Late st Contact Info) Description 01/24/2024 2:45 PM EDT Office Visit Ophthalmology, [facility] [address] [place] [address] Ramsey Burnett, DO [address] [address] 02/04/2024 10:20 AM EDT Office Visit Family Practice [facility] [address] [place] [address] Gregory Rausch MD 132 [facility] [place] [address] 02/13/2024 10:00 AM EDT Home Visit [facility], [facility] 132 [facility] [place] [address] Jaycee Sorto, RN 132 [place] [address] 02/21/2024 9:00 AM EDT Office Visit Pharmacy, [facility] [address] [facility] [place] [address] Pharmacist1, [facility] 200 [facility] [place] [address] 06/03/2024 9:00 AM EDT Telemedicine Psychiatry, [place] [address] [place] [address] Janice Atwood MD [address] [place] [address] 07/17/2024 9:30 AM EDT Office Visit Cardiology, [facility] [address] [facility] [place] [address] Roberto Carlos Muniz, [address] [facility] [place] [address] 11/27/2024 9:40 AM EST Office Visit Nephrology, [facility] [address] [facility] [place] [address] Fidelina Baumann MD [address] [facility] [place] [address] Scheduled Procedures Name Priority Associated Diagnoses Date/Ti [...] Additional history exists CKD PHOS USE SMARTSET 29865 06/18/202405/26, 06/16/2023, 06/15/2023, Additional history exists GFR 07/09/2024 01/08/2024, 09/25, 08/02/2023, Additional history exists Diabetic Eye Exam 09/13/2024 09/13/2023, , 09/13/2023, Additional history exists B-12 09/18/2024 09/18/2023, 08/24, 2020, Additional history exists Albumin/Creatinine Ratio 01/07/2025 024, 03/09/2023, 12/22/2022, Additional history exists CKD HGB USE SMARTSET 02704 01/07/202501/07, 01/08/2024, 10/15/2023, Additional history exists TSH [...] this encounter Medical Devices Implanted Type Area Macaroni Press Operator Device Identifier Shelf Expiration Date Model / Serial / Lot Cath Roselia Single Lumen - [id number] Implanted:Qty : 1 on 03/12/2008 at OR [facility] Left: Chest [facility] *DO NOT USE* 07/25/2012 21-4053-24 / / [id number] Sut Steel 6 M654g - [id number] Implanted:Qty : 1 on 11/01/2010 at OR [facility] N/A: Chest DO NOT USE M654G / / Sut Steel 6 M654g - [id number] Implanted:Qty : 1 on 11/01/2010 at OR [facility] N/A: Chest DO NOT USE M654G / / Valve Tarsha Aortic [id number] - [id number] Implanted:Qty : 1 on 11/01/2010 at OR [facility] N/A: Heart [employer] D[employer]EL 05/20/2012 2800TFX-25 / / [id number] Mesh Soft [id number] - [id number] Implanted:Qty : 1 on 10/10/2019 [place] Gigi Hendrickson [place] [facility] [place]: Abdomen CR BARD : DAVOL [id number] 05/21/2024 [id number] / / [id number] Lens 22.5 Sn60wf - [id number] - [id number] Implanted:Qty : 1 on 09/15/2020 by Cece Roland MD at OR [facility] Right: Eye IVA : SURGICAL [id number] 05/13/2025 SN60 WF.225 / [id number] / [id number] Lens 21.5 Sn60wf - [id number] - [id number] Implanted:Qty : 1 on 12/19/2023 by Ramsey Burnett DO at OR [facility] Left: Eye IVA : SURGICAL 12/03/2024 SN60WF.2 15 / [id number] / documented as of this encounter [...] the patient have Health Care Power of Cheese Blender? No Full Code 10/10/2019 8:40 AM 10/10/2019 5:53 PM This order reflects the patients wishes and were consensually agreed upon. Healthcare Agents on File Name Relationship Healthcare Agent Relationshi p Communication Gigi Rose Adult Child Health Care Repr esentative (appointed verbally by patient or by statute hierarchy) Care Teams Stab Setter And Driller Relationship Specialty Start Date End Date Gregory Rausch MD [address] [place] [address] PCP - General Family Medicine 02/12/20 documented as of this encounter
--- OUTSIDE RECORDS SUMMARY | 2024-06-05 14:58 | External Medical Summary | Summary of Care ---
Author Name Unknown Organization [facility] Address [address] [place] [address] Phone [phone] Care Team Providers Care Welding Machine Operator Ultrasonic Name Role Phone Gregory Rausch MD Primary Care Provider [phone] Reason for Visit * Reason Onset Date Comments Medication Refill 01/09/2024 Encounter Details Date Type Department Care Team (Late st Contact Info) Description 01/09/2024 Refill Cardiology, [facility] [address] [place] [address] Roberto Carlos Muniz, [address] [place] [address] HTN, goal below 130/80* Allergies Active Allergy Reactions Criticality Noted Date Comments Adhesive Tape 07/02/2017 Can tolerate band-aids Glycerin Other (Please comment) 03/12/2008 Topical agents with glycein-burning & itching Lactose 12/09/2014 Dairy - gas Lisinopril Cough 01/21/2010 Monosodium Glutamate Edema Other 03/12/2008 Hands and feet Penicillins Rash 11/14/2007 documented as of this encounter (statuses as of 01/10/2024) Medications Medication Sig Dispensed Refills Start Date [...] hypoglycemia E11.9 100 Tab 3 07/06/2021 Active Authentium Verio w/Device Kit Use up to 4 times a day E11.9 1 Kit 0 02/10/2022 Active Spaces 2 Hostuch Delica Lancets 33G TEST 4 TIMES DAILY [...] Additional Information Patient not taking.Reported on 01/08/2024 Clopidogrel Bisulfate 75 MG Oral Tablet (pLAVix) TAKE 1 TABLET (75 MG) BY MOUTH IN THE MORNING 90 Tablet 2 05/05/2023 Active Levothyroxine Sodium 75 MCG Oral Tablet (Levoxyl)Indication s:Hypothyroidism TAKE 1 TAB BY MOUTH DAILY FIRST THING IN AM, AT LEAST 30 MIN PRIOR TO BREAKFAST OR OTHER MEDICATIONS 90 Tablet 2 05/05/2023 Active Is[employer]rapeutics GmbHio In Vitro Strip (Glucose Blood) Use up [...] ICD10: E11.9. 15 mL 2 07/31/2023 Active Gaviscon 80-14.2 MG Oral Tablet Chewable (Alum Hydroxide-Mag Trisilicate) Take by mouth as needed. 0 Active Atorvastatin Calcium 40 MG Oral Tablet (Lipitor)Indication s:Heart failure, systolic, due to idiopathic cardiomyopathy (HCC),S/P aortic valve replacement,HTN, goal below 140/80,Dyslipidemia , goal LDL below 70 TAKE 1 TABLET BY MOUTH DAILY. TO PREVENT HEART ATTACK/STROKE, PROTECT KIDNEY, AND CHOLESTEROL 90 Tablet 1 08/20/2023 Active Additional Information Patient taking differently: 40 mg Oral Daily(AM), Reported on 11/26/2023 Meclizine HCl 25 MG Oral Tablet (Antivert)Indicatio ns:Muscle tension headache TAKE 2 TABLETS BY MOUTH [...] before bedtime. 60 Tablet 5 09/26/2023 Active Ammonium Lactate 12 % External Lotion (Lac-Hydrin) Apply to both feet once daily. 400 g 3 10/02/2023 Active Nystatin 711069 UNIT/GM External Powder (Nystop)Indications :Candidal intertrigo Apply topically to affected area 3 times a day. Apply to affected areas 60 g 1 10/02/2023 Active Aquaphor External Ointment Apply topically to affected area as needed for Dry Skin. Apply to face 420 g 0 10/02/2023 Active traZODone HCl 100 MG Oral Tablet [...] 10/18/2023 Active Gabapentin 100 MG Oral Capsule (Neurontin)Indicati ons:Polyneuropathy associated with underlying disease ([facility]) TAKE 1 CAPSULE BY MOUTH EVERY DAY IN THE MORNING , AT NOON, AND BEFORE BEDTIME 90 Capsule 0 10/23/2023 Active DULoxetine HCl 20 MG Oral Capsule [...] by mouth in the morning. 0 Active Fluticasone Propionate 50 MCG/ACT Nasal Suspension (Flonase)Indication s:Dizziness Administer 2 Sprays into each nostril in the morning. 16 g 3 01/09/2024 Active Magnesium Oxide -Mg Supplement 400 (240 Mg) MG Oral Tablet (Mag-Ox)Indications :HTN, goal below 130/80 One tablet by mouth daily in the morning 90 Tablet 3 01/10/2024 Active Ozempic (2 MG/DOSE) 8 MG/3ML Subcutaneous Solution Pen-injector (Semaglutide (2 MG/DOSE))Indication s:weekly on fridays Inject 2 mg under the skin once a week. 9 mL 3 01/09/2024 Active Magnesium Oxide 400 (240 Mg) MG Oral Tablet (Mag-Ox) One tablet by mouth daily in the morning 90 Tablet 3 12/23/2022 01/09/20 24 Discontinu ed(Refill) Tresiba FlexTouch 200 UNIT/ML Subcutaneous Solution Pen-injector (Insulin Degludec)Indication s:Type 2 diabetes mellitus with hemoglobin A1c goal of less than 7.0% ([facility]),Type 2 diabetes mellitus with stage 3a chronic kidney disease, with long-term current use of insulin ([facility]) Inject 30 Units under the skin at bedtime. 6 mL 2 07/31/2023 01/09/20 24 Discontinu ed(Refill) BD Pen Needle Short U/F 31G X 8 MMIndications:Type 2 diabetes mellitus with hemoglobin A1c goal of less than 7.0% ([facility]),Type 2 diabetes mellitus with stage 3a chronic kidney disease, with long-term current use of insulin ([facility]) Use with insulin 4 times daily 400 Each 3 07/31/2023 01/09/20 24 Discontinu ed(Refill) documented as of this encounter (statuses as of 01/10/2024) Active Problems Problem Noted Date Diagnosed Date [...] eye 09/28/2020 Coronary artery disease invo lving [place] coronary artery of [place] heart without angina pectoris 12/16/2019 Last Assessment [...] as of this encounter (statuses as of 01/10/2024) Resolved Problems Problem Noted Date Diagnosed Date [...] 12/21/2016 Diabetes mellitus 01/05/2014 12/21/2016 LEYVA RESEARCH OTHER*[id number] 01/05/2014 12/21/2016 Axillary pain 11/03/2013 12/21/2016 Obesity, [...] Electronic Medical Record [facility] V710 Clinical Trial*[id number] 12/22/2010 04/14/2011 S/P aortic valve replacement 12/01/2010 08/26/2011 S/P AORTIC VALVE REPLACEMENT - #25 pericardial Mc valve 11/01/2010 06/28/2018 Overview: Aortic valve replacement with #25 pericardial Mc valve, model 2800TFX, serial number [id number] (Dr. Walker) [facility] V710 Clinical Trial*[id number] 10/18/2010 11/21/2010 Body mass index (BMI) of [...] as of this encounter (statuses as of 01/10/2024) Immunizations Name Administration Dates Next Due COVID-19 mRNA, LNP-s, No Pre serve, 2-Dose Series (Moderna) 10/25/2021,02/16/2021,01/18/2021 HEP A - Hepatitis A (Adult > 18 yrs) 06/07/2018, 12/05/2017 Hepatitis B, 20+ yrs 06/07/2018,01/08/20 18,12/05/2017,06/15,10/27/2013,09/12/2013 Pneumococcal Conjugate Vacci ne, 20-valent ([id number]) 06/22/2023 Pneumococcal Polysaccharide PPV23 (Pneumovax) 01/02/2008 Seasonal [...] encounter Miscellaneous Notes * Telephone Encounter - Martin Ross PA-C - 01/10/2024 8:21 AM EDT Signed Prescriptions: Disp Refills Magnesium Oxide -Mg Supplement 400 (240 Mg*90 Tab*3 Sig: One tablet by mouth daily in the morning Authorizing Provider: MARTIN ROSS * Telephone Encounter - Whitney Ramirez CMA - 01/10/2024 8:07 AM EDTPending Prescriptions: Disp Refills Magnesium Oxide -Mg Supplement 400 (240 Mg*90 Tab*3 Sig: One tablet by mouth daily in the morning * Telephone Encounter - Whitney Ramirez CMA - 01/10/2024 8:06 AM EDT Did you pend patient's preferred pharmacy and medication before forwarding?yes Pharmacy: [id number] Pending Prescriptions: Disp Refills Magnesium Oxide -Mg Supplement 400 (240 M*90 Tab*3 Sig: One tablet by mouth daily in the morning Last Visit: 01/08/2024 (in office), 02/12/2020 (telemedicine) Next Visit: 07/17/2024 If no future appointments scheduled, and last appointment is greater than a year ago, please schedule patient for a follow-up appointment Last date the medication was ordered: 12-23-2022 Is this request for a controlled substance?No Urine Drug Screen:No results found. However, due to the size of the patient record, not all encounters were searched. Please check Results Review for a complete set of results. Patient Phone Numbers Labs: Lab Results Component Value Date/Time CREAT 1.0 01/08/2024 12:22 PM CREAT 0.80 08/02/2023 12:00 AM CREAT 1.2 (H) 09/07/2020 10:58 AM POTASSIUM 50.2 01/08/2024 12:29 PM POTASSIUM 5.1 01/08/2024 12:22 PM POTASSIUM 3.0 (A) 08/02/2023 12:00 AM POTASSIUM 4.8 09/07/2020 10:58 AM TSH 1.80 01/08/2024 12:22 PM TSH 2.41 12/09/2019 01:49 PM LDLCALC 32 08/30/2018 04:00 PM LDLDIRECT 52 04/09/2023 01:44 PM LDLDIRECT 30 09/07/2020 10:58 AM ALT 20 01/08/2024 12:22 PM ALT 20 09/07/2020 10:58 AM HGBA1C 7.5 (H) 09/18/2023 09:32 AM HGBA1C 8.3 (H) 12/09/2019 01:49 PM documented in this encounter Plan of Treatment Upcoming Encounters Date Type Department Care Team (Late st Contact Info) Description 01/24/2024 2:45 PM EDT Office Visit Ophthalmology, [facility] [address] [place] [address] Ramsey Burnett DO [address] [place] [address] 02/04/2024 10:20 AM EDT Office Visit Family Practice [facility] [address] [place] [address] Gregory Rausch MD [address] [place] [address] 02/13/2024 10:00 AM EDT Home Visit [facility] at Home, [facility] [address] [place] [address] Jaycee Sorto, RN [address] [place] [address] 02/21/2024 9:00 AM EDT Office Visit Pharmacy, [place] [place] [address] [place] [address] Pharmacist1, [facility] [address] [place] [address] 06/03/2024 9:00 AM EDT Telemedicine Psychiatry, [place] [address] [place] [address] Janice Atwood MD [address] [place] [address] 07/17/2024 9:30 AM EDT Office Visit Cardiology, [facility] [address] [place] [address] Roberto Carlos Muniz, [address] [place] [address] 11/27/2024 9:40 AM EST Office Visit Nephrology, [facility] [address] [facility] [place], [place] [id number] Fidelina Baumann MD [address] [facility] [place] [address] Scheduled Procedures Name Priority Associated Diagnoses Date/Ti [...] Additional history exists CKD PHOS USE SMARTSET 23662 06/18/2024 09/2 01/2023, 06/16/2023, 06/15/2023, Additional history exists GFR 07/09/2024 01/08/2024, 09/25, 08/02/2023, Additional history exists Diabetic Eye Exam 09/13/2024 09/13/2023, , 09/13/2023, Additional history exists B-12 09/18/2024 09/18/2023, 08/24, 2020, Additional history exists Albumin/Creatinine Ratio 01/07/2025 024, 03/09/2023, 12/22/2022, Additional history exists CKD HGB USE SMARTSET 37027 01/07/202501/07, 01/08/2024, 10/15/2023, Additional history exists TSH [...] this encounter Medical Devices Implanted Type Area Grinder Set Up Operator Universal Device Identifier Shelf Expiration Date Model / Serial / Lot Cath Roselia Single Lumen - [id number] Implanted:Qty : 1 on 03/12/2008 at OR [facility] Left: Chest [employer] *DO NOT USE* 07/25/2012 21-4053-24 / / [id number] Sut Steel 6 M654g - [id number] Implanted:Qty : 1 on 11/01/2010 at OR [facility] N/A: Chest DO NOT USE M654G / / Sut Steel 6 M654g - [id number] Implanted:Qty : 1 on 11/01/2010 at OR [facility] N/A: Chest DO NOT USE M654G / / Valve Tarsha Aortic [id number] - [id number] Implanted:Qty : 1 on 11/01/2010 at OR [facility] N/A: Heart [employer] DANIEL 05/20/2012 2800TFX-25 / / [id number] Mesh Soft 21s20co - [id number] Implanted:Qty : 1 on 10/10/2019 by Gigi Hendrickson MD at OR [facility] N/A: Abdomen CR BARD : DAVOL [id number] 05/21/2024 [id number] / / [id number] Lens 22.5 Sn60wf - [id number] - [id number] Implanted:Qty : 1 on 09/15/2020 by Renaldo Cook, Cece Acosta MD at OR [facility] Right: Eye IVA : SURGICAL [id number] 05/13/2025 SN60 WF.225 / [id number] / [id number] Lens 21.5 Sn60wf - [id number] - [id number] Implanted:Qty : 1 on 12/19/2023 by Ramsey Burnett DO at OR [facility] Left: Eye IVA : SURGICAL 12/03/2024 SN60WF.2 15 / [id number] / documented as of this encounter [...] the patient have Health Care Power of Logistics Account Manager? No Full Code 10/10/2019 8:40 AM 10/10/2019 5:53 PM This order reflects the patients wishes and were consensually agreed upon. Healthcare Agents on File Name Relationship Healthcare Agent Relationshi p Communication Gigi Rose Adult Child Health Care Repr esentative (appointed verbally by patient or by statute hierarchy) Care Teams Welding Machine Operator Ultrasonic Relationship Specialty Start Date End Date Gregory Rausch MD [address] [place] [address] PCP - General Family Medicine 02/12/20 documented as of this encounter
--- OUTSIDE RECORDS SUMMARY | 2024-06-05 14:58 | External Medical Summary | Summary of Care ---
Author Name Unknown Organization [facility] Address [address] [place] [address] Phone [phone] Care Team Providers Care Blocking Machine Operator Second Name Role Phone Gregory Rausch MD Primary Care Provider [phone] Reason for Visit * Reason Onset Date Comments Medication Refill 01/09/2024 Encounter Details Date Type Department Care Team (Late st Contact Info) Description 01/09/2024 Refill Endocrinology, [place] [address] [place] [address] Cinthia Mcgowan PA-C [address] [place] [address] Type 2 diabetes mellitus with hemoglobin A1c goal of less than 7.0% ([facility]); Type 2 diabetes mellitus with stage 3a chronic kidney disease, with long-term current use of insulin ([facility]) Allergies Active Allergy Reactions Criticality Noted Date [...] hypoglycemia E11.9 100 Tab 3 07/06/2021 Active [employer] Verio w/Device Kit Use up to 4 times a day E11.9 1 Kit 0 02/10/2022 Active ADman MediaTouch Delica Lancets 33G TEST 4 TIMES [...] OTHER MEDICATIONS 90 Tablet 2 05/05/2023 Active [employer] Verio In Vitro Strip (Glucose Blood) Use [...] than 7.0% ([facility]) Use up to 50 units per [...] daily. 400 g 3 10/02/2023 Active Nystatin 492911 UNIT/GM External Powder (Nystop)Indications :Candidal intertrigo Apply [...] than 7.0% ([facility]) Use as directed. Use 1 transmitter every 90 days E 11.9 1 Each 3 10/18/2023 Active Dexcom G6 SensorIndications:T ype 2 diabetes mellitus with hemoglobin A1c goal of less than 7.0% ([facility]) Use as directed. Use 1 sensor every 10 days E 11.9 9 Each 10/18/2023 Active Gabapentin 100 MG Oral Capsule (Neurontin)Indicati ons:Polyneuropathy associated with underlying disease ([facility]) TAKE 1 CAPSULE BY MOUTH EVERY DAY [...] the morning. 16 g 3 01/09/2024 Active Ozempic (2 MG/DOSE) 8 MG/3ML Subcutaneous [...] [facility]) Inject 30 Units under the skin at [...] eye 09/28/2020 Coronary artery disease invo lving [place] coronary artery of [place] heart without angina pectoris 12/16/2019 Last [...] eyes 08/09/2020 04/18/2023 Dry eyes 08/09/2020 2020 SAHW (dyspnea on exertion) 01/14/2020 Incisional hernia 10/10/2019 [...] 12/21/2016 Diabetes mellitus 01/05/2014 12/21/2016 LEYVA RESEARCH OTHER*[id number] 01/05/2014 12/21/2016 Axillary pain 11/03/2013 12/21/2016 Obesity, [...] 12/21/2016 FOLLOWING SURGERY, UNSPECIFI ED ([facility] 08/25/2011) 08/26/2011 12/21/2016 ADVANCE DIRECTIVE [...] Medical Record [facility] V710 Clinical Trial*[id number] 12/22/2010 04/14/2011 S/P aortic valve replacement 12/01/2010 08/26/2011 S/P AORTIC VALVE REPLACEMENT - #25 pericardial Mc valve 11/01/2010 06/28/2018 Overview: Aortic valve replacement with #25 pericardial Mc valve, model 2800TFX, serial number [id number] (Dr. Walker) [facility] V710 Clinical Trial*[id number] 10/18/2010 11/21/2010 Body mass index (BMI) of [...] 06/07/2018,01/08/20 18,12/05/2017,06/15,10/27/2013,09/12/2013 Pneumococcal Conjugate Vacci ne, 20-valent ([id number]) 06/22/2023 Pneumococcal Polysaccharide PPV23 (Pneumovax) 01/02/2008 Seasonal [...] Miscellaneous Notes * Telephone Encounter - Cinthia Mcgowan PA-C - 01/10/2024 8:11 AM EDTSigned Prescriptions: Disp Refills Tresiba FlexTouch 200 UNIT/ML Subcutaneous*6 mL 2 Sig: Inject 30 Units under the skin in the morning. Authorizing Provider: CINTHIA MCGOWAN BD Pen Needle Short U/F 31G X 8 MM 400 Ea*3 Sig: Use with insulin 4 times daily Authorizing Provider: CINTHIA MCGOWAN ---- * Telephone Encounter - Odalis Raymond LPN - 01/10/2024 7:54 AM EDTPending Prescriptions: Disp Refills Tresiba FlexTouch 200 UNIT/ML Subcutaneous*6 mL 2 Sig: Inject 30 Units under the skin in the morning. BD Pen Needle Short U/F 31G X 8 MM 400 Ea*3 Sig: Use with insulin 4 times daily * Telephone Encounter - Odalis Raymond LPN - 01/10/2024 7:54 AM EDT This medication has been pended for renewal in accordance with our office medication renewal policy.Pending Prescriptions: Disp Refills Tresiba FlexTouch 200 UNIT/ML Subcutaneou*6 mL 2 Sig: Inject 30 Units under the skin in the morning. BD Pen Needle Short U/F 31G X 8 MM 400 Ea*3 Sig: Use with insulin 4 times daily 05/05/2021 (in office), 07/27/2023 (telemedicine) Visit date not found If no future appointments scheduled, and last appointment is greater than a year ago, please schedule patient for a follow-up appointment Last date the medication was ordered: 07/31/2023 Pharmacy: [facility] [id number] [place] Labs: Lab Results Component Value Date/Time CREAT GFR 0.65 07/02/2017 12:19 PM CREATININE - [facility] 1.0 01/08/2024 12:22 PM CREATININE - [facility] 1.2 (H) 09/07/2020 10:58 AM CREATININE ISTAT 0.9 10/15/2017 12:22 PM CREATININE, BLD (G-[facility]) 0.69 11/03/2013 06:40 PM CREATININE, RANDOM URINE - [facility] 58 01/08/2024 12:29 PM CREATININE, RANDOM URINE - [facility] 140 03/21/2017 10:41 AM CREATININE-OUTSIDE LAB 0.80 08/02/2023 12:00 AM No components found for: "E G" * Telephone Encounter - Arina Lujan OSA - 01/09/2024 4:25 PM EDTPending Prescriptions: Disp Refills Tresiba FlexTouch 200 UNIT/ML Subcutaneous*6 mL 2 Sig: Inject 30 Units under the skin at bedtime. BD Pen Needle Short U/F 31G X 8 MM 400 Ea*3 Sig: Use with insulin 4 times daily documented in this encounter Plan of Treatment Upcoming Encounters Date Type Department Care Team (Late st Contact Info) Description 01/24/2024 2:45 PM EDT Office Visit Ophthalmology, [facility] [address] [facility] [place] [address] Ramsey Burnett DO [address] [place] [address] 02/04/2024 10:20 AM EDT Office Visit Family Practice [facility] [address] [facility] [address] [place] [address] Gregory Rausch MD [address] [facility] [place] [address] 02/13/2024 10:00 AM EDT [facility] [address] [facility] [place] [address] Jaycee Sorto RN 132 [facility] [address] 02/21/2024 9:00 AM EDT Office Visit Pharmacy, [facility] [address] [facility] [place] [address] Pharmacist1, [facility] [address] [facility] COUNT INCLUDES THE [facility] [place] [address] 06/03/2024 9:00 AM EDT Telemedicine Psychiatry, [place] [address] [place] [address] Janice Atwood MD [address] [place] [address] 07/17/2024 9:30 AM EDT Office Visit Cardiology, [facility] [address] [facility] [place] [address] Roberto Carlos Muniz DO [address] [place] [address] 11/27/2024 9:40 AM EST Office Visit Nephrology, [facility] [address] [facility] [place] [address] Fidelina Baumann MD [address] [facility] [place] [address] Scheduled Procedures Name Priority Associated Diagnoses Date/Ti [...] Additional history exists CKD PHOS USE SMARTSET 97619 06/18/202405/26, 06/16/2023, 06/15/2023, Additional history exists GFR 07/09/2024 01/08/2024, 09/25, 08/02/2023, Additional history exists Diabetic Eye Exam 09/13/2024 09/13/2023, , 09/13/2023, Additional history exists B-12 09/18/2024 09/18/2023, 08/24, 2020, Additional history exists Albumin/Creatinine Ratio 01/07/2025 024, 03/09/2023, 12/22/2022, Additional history exists CKD HGB USE SMARTSET 29150 01/07/202501/07, 01/08/2024, 10/15/2023, Additional history exists TSH [...] this encounter Medical Devices Implanted Type Area Laminating Press Operator Device Identifier Shelf Expiration Date Model / Serial / Lot Cath Roselia Single Lumen - [id number] Implanted:Qty : 1 on 03/12/2008 at OR [facility] Left: Chest [facility] *DO NOT USE* 07/25/2012 21-4053-24 / / [id number] Sut Steel 6 M654g - [id number] Implanted:Qty : 1 on 11/01/2010 at OR [facility] N/A: Chest DO NOT USE M654G / / Sut Steel 6 M654g - [id number] Implanted:Qty : 1 on 11/01/2010 at OR [facility] N/A: Chest DO NOT USE M654G / / Valve Tarsha Aortic [id number] - [id number] Implanted:Qty : 1 on 11/01/2010 at OR [facility] N/A: Heart [employer] 05/20/2012 2800TFX-25 / / [id number] Mesh Soft [id number] - [id number] Implanted:Qty : 1 on 10/10/2019 by Gigi Hendrickson [place] [facility] [place]/A: Abdomen CR BARD : DAVOL [id number] 05/21/2024 [id number] / / [id number] Lens 22.5 Sn60wf - [id number] - [id number] Implanted:Qty : 1 on 09/15/2020 by Renaldo Cook, Cece Acosta MD at OR [facility] Right: Eye IVA : SURGICAL [id number] 05/13/2025 SN60 WF.225 / [id number] / [id number] Lens 21.5 Sn60wf - [id number] - [id number] Implanted:Qty : 1 on 12/19/2023 by Ramsey Burnett DO at OR [facility] Left: Eye IVA : SURGICAL 12/03/2024 SN60WF.2 15 / [id number] / documented as of this encounter [...] the patient have Health Care Power of Geophysical Operator? No Full Code 10/10/2019 8:40 AM 10/10/2019 5:53 PM This order reflects the patients wishes and were consensually agreed upon. Healthcare Agents on File Name Relationship Healthcare Agent Relationshi p Communication Gigi Gutierrez [facility] Adult Child Health Care Repr esentative (appointed verbally by patient or by statute hierarchy) Care Teams Blocking Machine Operator Second Relationship Specialty Start Date End Date Gregory Rausch MD [address] [place] [address] PCP - General Family Medicine 02/12/20 documented as of this encounter
--- OUTSIDE RECORDS SUMMARY | 2024-06-05 14:58 | External Medical Summary | Summary of Care ---
Author Name Unknown Organization [facility] Address [address] [place] [address] Phone [phone] Care Team Providers Care Shoe Salesperson Name Role Phone Gregory Rausch MD Primary Care Provider [phone] Reason for Visit * Reason Comments eRx-Medication Refill Encounter Details Date Type Department Care Team (Late st Contact Info) Description 01/09/2024 Refill Family Practice [facility] [address] [facility] [place] [address] Gregory Rausch MD [address] [facility] [place] [address] Polyneuropathy associated with underlying disease [...] hypoglycemia E11.9 100 Tab 3 07/06/2021 Active MADSTouch Verio w/Device Kit Use up to 4 [...] at bedtime. 6 mL 2 07/31/2023 Active Additional Information Patient taking differently:30 Units SubcutaneousDaily(AM), Reported on 11/26/2023 BD Pen Needle Short U/F 31G X [...] 11/26/2023 Meclizine HCl 25 MG Oral Tablet (Antivert)Indication [...] daily. 400 g 3 10/02/2023 Active Nystatin 023595 UNIT/GM External Powder (Nystop)Indications: Candidal intertrigo Apply [...] 10/18/2023 Active Gabapentin 100 MG Oral Capsule (Neurontin)Indicatio [...] a week. 9 mL 3 01/09/2024 Active documented as of this encounter (statuses [...] eye 09/28/2020 Coronary artery disease invo [place]ving [place] coronary artery of [place] heart without angina pectoris 12/16/2019 Last [...] 12/21/2016 Diabetes mellitus 01/05/2014 12/21/2016 LEYVA RESEARCH OTHER*[id number] 01/05/2014 12/21/2016 Axillary pain 11/03/2013 12/21/2016 Obesity, [...] cath 09/201008/26/2011 12/21/2016 FOLLOWING SURG[facility], [facility]) 08/26/2011 12/21/2016 ADVANCE DIRECTIVE INFORMATION [...] Record [facility] V710 Clinical Trial*[id number] 12/22/2010 04/14/2011 S/P aortic valve replacement 12/01/2010 08/26/2011 S/P AORTIC VALVE REPLACEMENT - #25 pericardial Mc valve 11/01/2010 06/28/2018 Overview: Aortic valve replacement with #25 pericardial Mc valve, model 2800TFX, serial number [id number] (Dr. Walker) [facility] V710 Clinical Trial*[id number] 10/18/2010 11/21/2010 Body mass index (BMI) of [...] 06/07/2018,01/08/20 18,12/05/2017,06/15,10/27/2013,09/12/2013 Pneumococcal Conjugate Vacci ne, 20-valent ([id number]) 06/22/2023 Pneumococcal Polysaccharide PPV23 (Pneumovax) 01/02/2008 Seasonal [...] encounter Miscellaneous Notes * Telephone Encounter - Caroline Morillo - 01/10/2024 4:53 AM EDTRefused Prescriptions: Disp Refills Gabapentin 100 MG Oral Capsule (Neurontin) 90 Cap*0 Sig: TAKE 1CAPSULE BY MOUTH EVERY DAY IN THE MORNING , AT NOON, AND BEFORE BEDTIMERefused By: Lei MORILLO for Refusal: Duplicate Request documented in this encounter Plan of Treatment Upcoming Encounters Date Type Department Care Team (Late st Contact Info) Description 01/24/2024 2:45 PM EDT Office Visit Ophthalmology, [facility] 132 [facility] [place] [address] Ramsey Burnett, DO [address] [place] [address] 02/04/2024 10:20 AM EDT Office Visit Family Practice [facility] [address] [facility] [place] [address] Gregory Rausch MD 132 [facility] [place] [address] 02/13/2024 10:00 AM EDT Home Visit [place] at Home, [facility] [address] [facility] [place] [address] Jaycee Sorto RN 132 [place] [address] 02/21/2024 9:00 AM EDT Office Visit Pharmacy, [facility] 200 [facility] [place] [address] Pharmacist1, [facility] [address] [place] [address] 06/03/2024 9:00 AM EDT Telemedicine Psychiatry, [place] [address] [place] [address] Janice Atwood MD [address] [place] [address] 07/17/2024 9:30 AM EDT Office Visit Cardiology, [facility] 132 [facility] [place] [address] Roberto Carlos Muniz, [address] [facility] [place] [address] 11/27/2024 9:40 AM EST Office Visit Nephrology, [facility] [address] [place] [address] Fidelina Baumann MD [address] [place] [address] Scheduled Procedures Name Priority Associated Diagnoses Date/Ti [...] Additional history exists CKD PHOS USE SMARTSET 00158 06/18/202405/26, 06/16/2023, 06/15/2023, Additional history exists GFR 07/09/2024 01/08/2024, 09/25, 08/02/2023, Additional history exists Diabetic Eye Exam 09/13/2024 09/13/2023, , 09/13/2023, Additional history exists B-12 09/18/2024 09/18/2023, 08/24, 2020, Additional history exists Albumin/Creatinine Ratio 01/07/2025 024, 03/09/2023, 12/22/2022, Additional history exists CKD HGB USE SMARTSET 30243 01/07/202501/07, 01/08/2024, 10/15/2023, Additional history exists TSH [...] this encounter Medical Devices Implanted Type Area Surfacer Operator Device Identifier Shelf Expiration Date Model / Serial / Lot Cath Roselia Single Lumen - [id number] Implanted:Qty : 1 on 03/12/2008 at OR [facility] Left: Chest [facility] *DO NOT USE* 07/25/2012 21-4053-24 / / [id number] Sut Steel 6 M654g - [id number] Implanted:Qty : 1 on 11/01/2010 at OR [facility] N/A: Chest DO NOT USE M654G / / Sut Steel 6 M654g - [id number] Implanted:Qty : 1 on 11/01/2010 at OR [facility] N/A: Chest DO NOT USE M654G / / Valve Tarsha Aortic [id number] - [id number] Implanted:Qty : 1 on 11/01/2010 at OR [facility] N/A: Heart [employer] DANIEL 05/20/2012 2800TFX-25 / / [id number] Mesh Soft [id number] - [id number] Implanted:Qty : 1 on 10/10/2019 by Gigi Hendrickson MD at OR [facility] N/A: Abdomen CR BARD : DAVOL [id number] 05/21/2024 [id number] / / [id number] Lens 22.5 Sn60wf - [id number] - [id number] Implanted:Qty : 1 on 09/15/2020 by Cece Roland MD at OR [facility] Right: Eye IVA : SURGICAL [id number] 05/13/2025 SN60 WF.225 / [id number] / [id number] Lens 21.5 Sn60wf - [id number] - [id number] Implanted:Qty : 1 on 12/19/2023 by Ramsey Burnett DO at OR [facility] Left: Eye IVA : SURGICAL 12/03/2024 SN60WF.2 15 / [id number] / documented as of this encounter Visit Diagnoses Diagnosis Polyneuropathy associated with underlying disease (HCC) documented in this encounter Advance Directives [...] the patient have Health Care Power of Irrigationist Designer? No Full Code 10/10/2019 8:40 AM 10/10/2019 5:53 PM This order reflects the patients wishes and were consensually agreed upon. Healthcare Agents on File Name Relationship Healthcare Agent Relationshi p Communication Gigi Rose Adult Child Health Care Repr esentative (appointed verbally by patient or by statute hierarchy) Care Teams Shoe Salesperson Relationship Specialty Start Date End Date Gregory Rausch MD [address] [place] [address] PCP - General Family Medicine 02/12/20 documented as of this encounter
--- OUTSIDE RECORDS SUMMARY | 2024-06-05 14:58 | External Medical Summary | Summary of Care ---
Author Name Unknown Organization [facility] Address [address] [place] [address] Phone [phone] Care Team Providers Care Dry Cans Back Tender Name Role Phone Deon Rausch MD Primary Care Provider [phone] Reason for Visit * Reason Onset Date Comments Medication Refill 01/09/2024 Encounter Details Date Type Department Care Team (Late st Contact Info) Description 01/09/2024 Refill Family Practice [facility] 132 [facility] [place] [address] Deon Rausch MD 132 [facility] [place] [address] Hypothyroidism; Heart failure, systolic, due to idiopathic cardiomyopathy (HCC); S/P AORTIC VALVE REPLACEMENT - #25 pericardial Mc valve; HTN, goal below 140/80; Dyslipidemia, goal LDL below 70; Muscle tension headache; Candidal intertrigo; Polyneuropathy associated with underlying disease (HCC) Allergies [...] day E11.9 1 Kit 0 02/10/2022 Active Flow Search CorporationTouch Delica Lancets 33G TEST 4 TIMES [...] Additional Information Patient not taking.Reported on 01/08/2024 [employer] Search CorporationTouch Verio In Vitro Strip (Glucose Blood) Use [...] units per day in Omnipod. 5 Each 09/11/2023 Active Additional Information Patient not taking.Reported [...] each nostril in the morning. 16 g 01/09/2024 Active Magnesium Oxide -Mg Supplement 400 [...] MEDICATIONS 90 Tablet 2 01/10/2024 Active Nystatin 559309 UNIT/GM External Powder (Nystop)Indications :Candidal intertrigo Apply topically to affected area 3 times a day. Apply to affected areas 60 g 1 01/10/2024 Active Aquaphor External Ointment Apply topically to affected area as needed for Dry Skin. Apply to face 420 g 0 01/10/2024 Active Gabapentin 100 MG Oral Capsule (Neurontin)Indicati ons:Polyneuropathy associated with underlying disease ([facility]) TAKE 1 CAPSULE BY MOUTH EVERY [...] before bedtime. 60 Tablet 5 01/10/2024 Active Clopidogrel Bisulfate 75 MG Oral Tablet (pLAVix) TAKE 1 TABLET (75 MG) BY MOUTH IN THE MORNING 90 Tablet 2 05/05/2023 01/09/20 24 Discontinu ed(Refill) Levothyroxine Sodium 75 MCG Oral Tablet (Levoxyl)Indication s:Hypothyroidism TAKE 1 TAB BY MOUTH DAILY FIRST THING IN AM, AT LEAST 30 MIN PRIOR TO BREAKFAST OR OTHER MEDICATIONS 90 Tablet 2 05/05/2023 01/09/20 24 Discontinu ed(Refill) NovoLOG FlexPen 100 UNIT/ML Subcutaneous Solution Pen-injector (insulin aspart) Injected under the skin BEFORE MEALS, 3 times per day: 2 units per 50 when glucose is over 200 units. TDD: 50. ICD10: E11.9. 15 mL 2 07/31/2023 01/10/20 24 Discontinu ed(Patient preference /discontin uation) Atorvastatin Calcium 40 MG Oral Tablet (Lipitor)Indication s:Heart failure, systolic, due to idiopathic cardiomyopathy (HCC),S/P aortic valve replacement,HTN, goal below 140/80,Dyslipidemia , goal LDL below 70 TAKE 1 TABLET BY MOUTH DAILY. TO PREVENT HEART ATTACK/STROKE, PROTECT KIDNEY, AND CHOLESTEROL 90 Tablet 1 08/20/2023 01/10/20 24 Discontinu ed(Refill) Meclizine HCl 25 MG Oral Tablet (Antivert)Indicatio ns:Muscle tension headache TAKE 2 TABLETS BY MOUTH TWICE A DAY 360 Tablet 3 08/20/2023 01/10/20 24 Discontinu ed(Patient preference /discontin uation) Metoprolol Tartrate 25 MG Oral Tablet (Lopressor) Take 1 Tablet by mouth in the morning and 1 Tablet before bedtime. 60 Tablet 5 09/26/2023 01/10/20 24 Discontinu ed(Patient preference /discontin uation) Ammonium Lactate 12 % External Lotion (Lac-Hydrin) Apply to both feet once daily. 400 g 3 10/02/2023 01/10/20 24 Discontinu ed(Patient preference /discontin uation) Nystatin 715442 UNIT/GM External Powder (Nystop)Indications :Candidal intertrigo Apply topically to affected area 3 times a day. Apply to affected areas 60 g 1 10/02/2023 01/09/20 24 Discontinu ed(Refill) Aquaphor External Ointment Apply topically to affected area as needed for Dry Skin. Apply to face 420 g 0 10/02/2023 01/09/20 24 Discontinu ed(Refill) Gabapentin 100 MG Oral Capsule (Neurontin)Indicati ons:Polyneuropathy associated with underlying disease (HCC) TAKE 1 CAPSULE BY MOUTH EVERY DAY IN THE MORNING , AT NOON, AND BEFORE BEDTIME 90 Capsule 0 10/23/2023 01/09/20 24 Discontinu ed(Refill) documented as of [...] eye 09/28/2020 Coronary artery disease invo lving [place] coronary artery of [place] heart without angina pectoris 12/16/2019 Last [...] 12/21/2016 Diabetes mellitus 01/05/2014 12/21/2016 LEYVA RESEARCH OTHER*[id number] 01/05/2014 12/21/2016 Axillary pain 11/03/2013 12/21/2016 Obesity, [...] cath 09/201008/26/2011 12/21/2016 FOLLOWING SURGERY, UNSPECIFI ED ([facility] 08/25/2011) 08/26/2011 12/21/2016 ADVANCE DIRECTIVE INFORMATION 04/17/2011 12/21/2016 Overview: Yes, Patient instructed to provide copy of advance directive for provider to review and to be scanned into Electronic Medical Record ADVANCE DIRECTIVE INFORMATION 03/01/2011 12/21/2016 Overview: Yes, Patient instructed to provide copy of advance directive for provider to review and to be scanned into Electronic Medical Record [facility] V710 Clinical Trial*[id number] 12/22/2010 04/14/2011 S/P aortic valve replacement 12/01/2010 08/26/2011 S/P AORTIC VALVE REPLACEMENT - #25 pericardial Mc valve 11/01/2010 06/28/2018 Overview: Aortic valve replacement with #25 pericardial Mc valve, model 2800TFX, serial number [id number] (Dr. Walker) [facility] V710 Clinical Trial*[id number] 10/18/2010 11/21/2010 Body mass index (BMI) of [...] 06/07/2018,01/08/20 18,12/05/2017,06/15,10/27/2013,09/12/2013 Pneumococcal Conjugate Vacci ne, 20-valent (Sthfwsf13) 06/22/2023 Pneumococcal Polysaccharide PPV23 (Pneumovax) 01/02/2008 Seasonal [...] the money to buy more. Never true 11/02/20 23 Within the past 12 months, t [...] Telephone Encounter - Deon Rausch MD - 01/10/2024 1:34 PM EDTSigned Prescriptions: Disp Refills Clopidogrel Bisulfate 75 MG Oral Tablet (p*90 Tab*2 Sig: Take 1 Tablet by mouth in the morning. Authorizing Provider: DEON RAUSCH Ordering User: RAFAT GHOSH Levothyroxine Sodium 75 MCG Oral Tablet (L*90 Tab*2 Sig: TAKE 1 TAB BY MOUTH DAILY FIRST THING IN AM, AT LEAST 30 MIN PRIOR TO BREAKFAST OR OTHER MEDICATIONS Aut horizing Provider: DEON RAUSCH Ordering User: RAFAT GHOSH Nystatin 021107 UNIT/GM External Powder (N*60 g 1 Sig: Apply topically to affected area 3 times a day. Apply to affected areas Authorizing Provider: DEON RAUSCH Aquaphor External Ointment 420 g 0 Sig: Apply topically to affected area as needed for Dry Skin. Apply to face Authoriz ing Provider: DEON RAUSCH Gabapentin 100 MG Oral Capsule (Neurontin) 90 Cap*2 Sig: TAKE 1 CAPSULE BY MOUTH EVERY DAY IN THE MORNING , AT NOON, AND BEFORE BEDTIME Authorizing Provider: DEON RAUSCH Ammonium Lactate 12 % External Lotion (Lac*400 g 2 Sig: Apply to both feet once daily. Authorizing Provider: DEON RAUSCH Ordering User: RAFAT GHOSH Atorvastat in Calcium 40 MG Oral Tablet (Li*90 Tab*2 Sig: Take 1 tablet by mouth daily to prevent heart attack/stroke, protect kidney, and cholesterol Authorizing Provider: DEON RAUSCH Ordering User: RAFAT GHOSH Meclizine HCl 25 MG Oral Tablet (Antivert) 360 Ta*2 Sig: Take 2 Tablets by mouth 2 times a day. Authorizing Provider: DEON RAUSCH Ordering User: RAFAT GHOSH Meto prolol Tartrate 25 MG Oral Tablet (Lop*60 Tab*5 Sig: Take 1 Tablet by mouth in the morning and 1 Tablet before bedtime. Authorizing Provider: DEON RAUSCH Ordering User: RAFAT GHOSH * Telephone Encounter - Rafat Ghosh [facility] - 01/10/2024 12:51 PM EDTPending Prescriptions: Disp Refills Nystatin 875476 UNIT/GM External Powder (N*60 g 1 Sig: Apply topically to affected area 3 times a day. Apply to affected areas Aquaphor External Ointment 420 g 0 Sig: Apply topically to affected area as needed for Dry Skin. Apply to face Gabapentin 100 MG Oral Capsule (Neurontin) 90 Cap*2 Sig: TAKE 1 CAPSULE BY MOUTH EVERY DAY IN THE MORNING , AT NOON, AND BEFORE BEDTIME Signed Prescriptions: Disp Refills Clopidogrel Bisulfate 75 MG Oral Tablet (p*90 Tab*2 Sig: Take 1 Tablet by mouth in the morning. Authorizing Provider: DEON RAUSCH Ordering User: RAFAT GHOSH Levothyroxine Sodium 75 MCG Oral Tablet (L*90 Tab*2 Sig: TAKE 1 TAB BY MOUTH D AILY FIRST THING IN AM, AT LEAST 30 MIN PRIOR TO BREAKFAST OR OTHER MEDICATIONS Authorizing Provider: DEON RAUSCH Ordering User: RAFAT GHOSH Ammonium Lactate 12 % External Lotion (Lac*400 g 2 Sig: Apply to both feet once daily. Authorizing Provider: DEON RAUSCH Ordering User: RAFAT GHOSH Atorvastatin Calcium 40 MG Oral Tablet (Li*90 Tab*2 Sig: Take 1 tablet b y mouth daily to prevent heart attack/stroke, protect kidney, and cholesterol Authorizing Provider: DEON RAUSCH Ordering User: RAFAT GHOSH Meclizine HCl 25 MG Oral Tablet (Antivert) 360 Ta*2 Sig: Take 2 Tablets by mouth 2 times a day. Authorizing Provider: DEON RAUSCH Ordering User: RAFAT GHOSH Metoprolol Tartrate 25 MG Oral Tablet (Lop*60 Tab*5 Sig: Take 1 Ta blet by mouth in the morning and 1 Tablet before bedtime. Authorizing Provider: DEON RAUSCH Ordering User: RAFAT GHOSH * Telephone Encounter - Rafat Ghosh RPh - 01/10/2024 12:41 PM EDT Transferred balance of refills to [facility] # [id number]. Patient comment: Dr Rausch, could you please increase my Gabapentim up to 300 - 3x - per day becauseit needs to be stronger to help as my neuropathy I feel is getting worse as time goes on. Thank You, EMB Nystatin powder and Aquaphor need new orders Please approve if appropriate. Thank You, Rafat Ghosh [facility] Clinical Pharmacist [facility] Services ([facility]) (formerly Telepharmacy) [phone] 01/10/2024, 12:51 PM documented in this encounter Plan of Treatment Upcoming Encounters Date Type Department Care Team (Late st Contact Info) Description 01/24/2024 2:45 PM EDT Office Visit Ophthalmology, [facility] 132 [facility] [place] [address] Ramsey Burnett DO [address] [place] [address] 02/04/2024 10:20 AM EDT Office Visit Family Practice [facility] [address] [facility] [place] [address] Deon Rausch MD 132 [facility] [place] [address] 02/13/2024 10:00 AM EDT Home Visit [place], [facility] [address] [facility] [place] [address] Jaycee Sorto, RN 132 [facility] [place] [address] 02/21/2024 9:00 AM EDT Office Visit Pharmacy, [facility] [place] 200 [facility] [place] [address] Pharmacist1, [facility] [address] [facility] [place] [address] 06/03/2024 9:00 AM EDT Telemedicine Psychiatry, [place] [address] [place] [address] Janice Atwood MD [address] [place] [address] 07/17/2024 9:30 AM EDT Office Visit Cardiology, [facility] [address] [place] [address] Roberto Carlos Muniz, [address] [place] [address] 11/27/2024 9:40 AM EST Office Visit Nephrology, [facility] [place] [address] Fidelina Baumann MD 200 [facility] [place] [address] Scheduled Procedures Name Priority Associated Diagnoses Date/Ti [...] < 10) 12/26/2023 12/25/2023 HbA1c 03/19/2024 09/18/2023, 11/03/2023, 04/09/2023, Additional history exists CKD PHOS USE SMARTSET 82138 06/18/202405/26, 06/16/2023, 06/15/2023, Additional history exists GFR 07/09/2024 01/08/2024, 09/25, 08/02/2023, Additional history exists Diabetic Eye Exam 09/13/2024 09/13/2023, , 09/13/2023, Additional history exists B-12 09/18/2024 09/18/2023, 08/24, 2020, Additional history exists Albumin/Creatinine Ratio 01/07/2025 024, 03/09/2023, 12/22/2022, Additional history exists CKD HGB USE SMARTSET 01657 01/07/202501/07, 01/08/2024, 10/15/2023, Additional history exists TSH [...] this encounter Medical Devices Implanted Type Area Spa Director/Finance Device Identifier Shelf Expiration Date Model / Serial / Lot Cath Roselia Single Lumen - [id number] Implanted:Qty : 1 on 03/12/2008 at OR [facility] Left: Chest [facility] *DO NOT USE* 07/25/2012 21-4053-24 / / [id number] Sut Steel 6 M654g - [id number] Implanted:Qty : 1 on 11/01/2010 at OR [facility] N/A: Chest DO NOT USE M654G / / Sut Steel 6 M654g - [id number] Implanted:Qty : 1 on 11/01/2010 at OR [facility] N/A: Chest DO NOT USE M654G / / Valve Tarsha Aortic [id number] - [id number] Implanted:Qty : 1 on 11/01/2010 at OR [facility] N/A: Heart [employer] DANIEL 05/20/2012 2800TFX-25 / / [id number] Mesh Soft [id number] - [id number] Implanted:Qty : 1 on 10/10/2019 by Gigi Hendrickson MD at OR [facility] N/A: Abdomen CR BARD : DAVOL [id number] 05/21/2024 [id number] / / [id number] Lens 22.5 Sn60wf - [id number] - [id number] Implanted:Qty : 1 on 09/15/2020 by Cece Roland MD at [facility] Right: Eye IVA : SURGICAL [id number] 05/13/2025 SN60 WF.225 / [id number] / [id number] Lens 21.5 Sn60wf - [id number] - [id number] Implanted:Qty : 1 on 12/19/2023 by Ramsey Burnett DO at OR [facility] Left: Eye IVA : SURGICAL 12/03/2024 SN60WF.2 15 / [id number] / documented as of this encounter Visit Diagnoses Diagnosis Hypothyroidism Unspecified hypothyroidism Heart failure, systolic, due to idiopathic cardiomyopathy (HCC) Unspecified systolic heart failure S/P AORTIC VALVE REPLACEMENT - #25 pericardial Mc valve Heart valve replaced by other means HTN, goal below 140/80 Unspecified essential hypertension Dyslipidemia, goal LDL below 70 Other and unspecified hyperlipidemia Muscle tension headache Tension headache Candidal intertrigo Candidiasis of skin and nails Polyneuropathy associated with underlying disease (HCC) documented [...] the patient have Health Care Power of Squad Boss? No Full Code 10/10/2019 8:40 AM 10/10/2019 5:53 PM This order reflects the patients wishes and were consensually agreed upon. Healthcare Agents on File Name Relationship Healthcare Agent Relationshi p Communication Gigi Rose Adult Child Health Care Repr esentative (appointed verbally by patient or by statute hierarchy) Care Teams Dry Cans Back Tender Relationship Specialty Start Date End Date Deon Rausch MD 132 [facility] [place] [address] PCP - General Family Medicine 02/12/20 documented as of this encounter
--- OUTSIDE RECORDS SUMMARY | 2024-06-05 14:59 | External Medical Summary | Summary of Care ---
Author Name Unknown Organization [facility] Address [address] [place] [address] Phone [phone] Care Team Providers Care Brand Coordinator Name Role Phone Deon Rausch MD Primary Care Provider [phone] Reason for Visit * Reason Comments Follow Up Encounter Details Date Type Department Care Team (Late st Contact Info) Description 01/08/2024 11:30 AM EDT Office Visit Cardiology, [facility] [address] [place] [id number] Roberto Carlos Muniz, [address] [place] [address] S/P TAVR (transcatheter aortic valve replacement)*; Chronic heart failure with preserved ejection fraction (HCC); HTN, goal below 140/90; History of GI bleed Allergies Active Allergy Reactions Criticality Noted Date Comments Adhesive Tape 07/02/2017 Can tolerate band-aids Glycerin Other (Please comment) 03/12/2008 Topical agents with glycein-burning & itching Lactose 12/09/2014 Dairy - gas Lisinopril Cough 01/21/2010 Monosodium Glutamate Edema Other 03/12/2008 Hands and feet Penicillins Rash 11/14/2007 documented as of this encounter (statuses as of 01/09/2024) Medications Medication Sig Dispensed Refills Start Date [...] hypoglycemia E11.9 100 Tab 3 1 Active HomeSphereToThe Old Reader Verio w/Device Kit Use up to 4 times a day E11.9 1 Kit 0 2 Active HomeSphereTouch Delica Lancets 33G TEST 4 TIMES DAILY [...] Additional Information Patient not taking.Reported on 01/08/2024 Fluticasone Propionate 50 MCG/ACT Nasal Suspension (Flonase)Indications: [...] at bedtime. 6 mL 2 3 Active Additional Information Patient taking differently:30 Units [...] AND CHOLESTEROL 90 Tablet 1 3 Active Additional Information Patient taking differently: 40 mg Oral Daily(AM), Reported on 11/26/2023 Meclizine HCl 25 MG Oral Tablet (Antivert)Indications [...] daily. 400 g 3 4 Active Nystatin 380925 UNIT/GM External Powder (Nystop)Indications:C andidal intertrigo Apply topically to affected area 3 times a day. Apply to affected areas 60 g 1 4 Active Aquaphor External Ointment Apply topically to affected area as needed for Dry Skin. Apply to face 420 g 0 4 Active traZODone HCl 100 MG Oral [...] E 11.9 9 Each 3 4 Active Gabapentin 100 MG Oral Capsule (Neurontin)Indication s:Polyneuropathy associated with underlying disease (HCC) TAKE 1 CAPSULE BY MOUTH EVERY DAY IN THE MORNING , AT NOON, AND BEFORE BEDTIME 90 Capsule 0 4 Active DULoxetine HCl 20 MG Oral [...] by mouth in the morning. 0 Active Torsemide 10 MG Oral Tablet (Demadex) Take 1 Tablet by mouth in the morning. 0 01/09/20 24 Discontinu ed(Medicat ion/Dose Changed) Ozempic (2 MG/DOSE) 8 MG/3ML Subcutaneous Solution Pen-injector (Semaglutide (2 MG/DOSE))Indications: Type 2 diabetes mellitus with hemoglobin A1c goal of less than 7.0% ([facility]),Type 2 diabetes mellitus with diabetic mononeuropathy, with long-term current use of insulin ([facility]),Type 2 diabetes mellitus with both eyes affected by mild nonproliferative retinopathy and macular edema, with long-term current use of insulin ([facility]),Type 2 diabetes mellitus with stage 3a chronic kidney disease, with long-term current use of insulin ([facility]) Inject 2 mg under the skin once a week. 9 mL 3 4 01/09/20 24 Discontinu ed(Refill) documented as of this encounter (statuses as of 01/09/2024) Active Problems Problem Noted Date Diagnosed Date [...] eye 09/28/2020 Coronary artery disease invo lving ekuk coronary artery of ekuk heart without angina pectoris 12/16/2019 Last Assessment [...] as of this encounter (statuses as of 01/09/2024) Resolved Problems Problem Noted Date Diagnosed Date [...] 12/21/2016 Diabetes mellitus 01/05/2014 12/21/2016 LEYVA RESEARCH OTHER*[id number] 01/05/2014 12/21/2016 Axillary pain 11/03/2013 12/21/2016 Obesity, [...] cath 09/201008/26/2011 12/21/2016 FOLLOWING SURGERY, UNSPECIFI ED ([facility] 08/25/2011) 08/26/2011 12/21/2016 ADVANCE DIRECTIVE INFORMATION 04/17/2011 12/21/2016 Overview: Yes, Patient instructed to provide copy of advance directive for provider to review and to be scanned into Electronic Medical Record ADVANCE DIRECTIVE INFORMATION 03/01/2011 12/21/2016 Overview: Yes, Patient instructed to provide copy of advance directive for provider to review and to be scanned into Electronic Medical Record Merck V710 Clinical Trial*[id number] 12/22/2010 04/14/2011 S/P aortic valve replacement 12/01/2010 08/26/2011 S/P AORTIC VALVE REPLACEMENT - #25 pericardial Mc valve 11/01/2010 06/28/2018 Overview: Aortic valve replacement with #25 pericardial Mc valve, model 2800TFX, serial number [id number] (Dr. Meeks) Merck V710 Clinical Trial*[id number] 10/18/2010 11/21/2010 Body mass index (BMI) of [...] as of this encounter (statuses as of 01/09/2024) Immunizations Name Administration Dates Next Due COVID-19 mRNA, LNP-s, No Pre serve, 2-Dose Series (Moderna) 10/25/2021,02/16/2021,01/18/2021 HEP A - Hepatitis A (Adult > 18 yrs) 06/07/2018, 12/05/2017 Hepatitis B, 20+ yrs 06/07/2018,01/08/20 18,12/05/2017,06/15,10/27/2013,09/12/2013 Pneumococcal Conjugate Vacci ne, 20-valent ([id number]) 06/22/2023 Pneumococcal Polysaccharide PPV23 (Pneumovax) 01/02/2008 Seasonal [...] Never Smokeless Tobacco: Never Tobacco Cessation:Counseling Given: No Alcohol Use Standard Drinks/Week Comments No 0 [...] Sign Reading Time Taken Comments Blood Pressure 152/74 01/08/2024 11:24 AM EDT Pulse 96 01/08/2024 11:24 AM EDT Temperature - - Respiratory Rate 14 01/08/2024 11:2 4 AM EDT Oxygen Saturation - - Inhaled Oxygen Concentration - - Weight 70.6 kg (155 lb 11.2 oz) 024 11:24 AM EDT Height - - Body Mass Index 31.43 12/19/2023 12:36 PM EDT documented in this [...] this encounter Progress Notes * Roberto Carlos Muniz, DO - 01/08/2024 11:43 AM EDT 01/08/2024 Cardiology F/U: CHIEF COMPLAINT: Follow up, history of valve in valve transcatheter aortic valve replacement, history of left main/LAD coronary artery stent; chronic diastolic HF; history of possible pericarditis. SUBJECTIVE: Jovita Rose is a 63 year old female who presents in follow up with multiple complex hospitalizations. Patient accompanied by her health aide. She notes feeling overall well. Notes breathing has been doing well. Denies subjective palpitations. She was lost a significant amount of weight weighing 195 pounds the time for previous visit ak on 03/15/23 and weighing 155 pounds the time todays visit. Patient was admitted to [facility] in May, 2023 with confusion, abdominal pain. Diagnosed with possible Pneumoperitoneum. Transferred to [facility]. Underwent 2 exploratory laparotomy. Etiology of pneumoperitoneum as unclear. No evidence of perforation. She underwent wound vac placement after first surgery andthen abdomen was closed with second surgery. Repeat CT scans was concerning for possible splenic infarcts. Per surgery, no intervention needed for splenic infarcts. She did have echo and ALMA without evidence of thrombus or vegetation on her TAVR. Her BP was low and multiple meds were adjusted on discharge to SNF including reduction in torsemide, metoprolol, metolazone. Spironolactone, valsartan were discontinued. Patient was then admitted in Jun 2023 for weakness at [facility] in [facility] for anemia. Suspected GI bleed. Had scopes with possible ulcerations. Treated with 4 units PRBC's. Plavix continued due to left main stent. In October,, readmitted to [place] and diagnosed with C diff. at discharge, she was counseled to stop taking torsemide as well as metformin due to concerns of recent volume depletion and lactic acidosis. Review of Systems: See HPI for pertinent positives. All others negative, other than those noted in HPI. Past Cardiac History: History of remote bioprosthetic aortic valve replacement due to symptomatic severe aortic stenosis and the presence of a bicuspid aortic valve in 2011, then valve in valve TAVR in 2017 [...] than 7.0% ([facility]) E11.9 DANYELLE on CPAP G47.33 [...] placement Z95.5 Schizoaffective disorder, bipolar type ([facility]) F25.0 Medical marijuana use Z79.899 Coronary artery disease involving ekuk coronary artery of ekuk heart without angina pectoris I25.10 Cystoid macular edema of right eye H35.351 Chronic kidney disease, stage 3a N18.31 Type 2 diabetes mellitus with stage 3a chronic kidney disease, with long-term current use of insulin (HCC) E11.22, N18.31, Z79.4 Type 2 diabetes mellitus with both eyes affected by mild nonproliferative retinopathy and macular edema, with long-term current use of insulin (HCC) E11.3213, Z79.4 Type 2 diabetes mellitus with diabetic peripheral angiopathy without gangrene (HCC) E11.51 Mood disorder (HCC) F39 Splenic infarct D73.5 Obesity, Class I, BMI 30.0-34.9 (see actual BMI) E66.9 Thrombocytopenia (HCC) D69.6 Hypertensive kidney disease with stage 3a chronic kidney disease (HCC) I12.9, N18.31 Social History Tobacco Use Smoking status: Never Smokeless tobacco: Never Vaping Use Vaping Use: Never used Substance Use Topics Alcohol use: No Drug use: No Family History Problem Relation Age of Onset Heart Disorder Mother CAD - at age 56 during second CABG Heart Disorder Father from [place] at age 51 Stroke Sister Alcohol and Other Disorders Associated Brother Heart Disorder Brother Older brother - CABG X 4 at age 65. Younger Brother [place] at age 45 Other (Other) Brother HIV +; [place] at age 31 Diabetes Grandmother (Maternal) Alcohol and Other Disorders Associated Son Heart Disorder Son Coartaction of Aorta Diabetes Aunt (Unspecified) Past Surgical History: Procedure Laterality Date CARPAL TUNNEL SURGERY Left 12/09/2014 NEUROPLASTY MEDIAN NERVE AT CARPAL TUNNEL performed by Levi Peralta MD at [facility] CARPAL TUNNEL SURGERY Right 02/23/2015 NEUROPLASTY MEDIAN NERVE AT CARPAL TUNNEL performed by Levi Peralta MD at [facility] CATARACT SURGERY,COMPLEX Left 12/19/2023 LEFT EXTRACAPSULAR CATARACT REMOVAL COMPLEX WITH IOL performed by Ramsey Burnett DO at [facility] DELIVERY x4 COLONOSCOPY, DIAGNOSTIC (RECTUM) 05/23/2011 COLONOSCOPY FLEXIBLE PROXIMAL DIAGNOSTIC performed by BELINDA JAMES at ENDOSCOPY [facility] COLONOSCOPY, DIAGNOSTIC (RECTUM) 12/08/2013 COLONOSCOPY FLEXIBLE PROXIMAL DIAGNOSTIC performed by Gigi Haro MD at ENDOSCOPY [facility] COLONOSCOPY, DIAGNOSTIC (RECTUM) 07/02/2018 poor prep, repeat / [facility] COLONOSCOPY, DIAGNOSTIC (RECTUM) 07/03/2018 adenomatous polyps, diverticulosis, repeat 3 yrs/[facility] COLONOSCOPY, DIAGNOSTIC (RECTUM) 09/13/2022 benign adenomatous polyps, diverticulosis, repeat 3 yrs / COLONOSCOPY FLEXIBLE PROXIMAL DIAGNOSTIC performed by Rajinder Wheeler MD at ENDOSCOPY [facility] CORONARY ANGIOGRAPHY W/RIGHT+LEFT CATH 10/10/2010 CORONARY ANGIOGRAPHY W/RIGHT+LEFT CATH performed by MARNI SULLIVAN at [facility]ARDIAC [facility]S [facility] CV ECHO, ALMA INTRAOPERATIVE N/A 06/21/2023 ECHOCARDIOGRAPHY, TRANSESOPHAGEAL; INCLUDING PROBE PLACEMENT, IMAGE ACQUISITION, INTERPRETATION ANDREPORT performed by [facility] EGD, FLEXIBLE, DIAGNOSTIC 07/02/2018 erosive gastropathy, repeat 2 yrs / [facility] EGD, FLEXIBLE, DIAGNOSTIC 04/15/2021 normal, repeat 3 yrs / ESOPHAGOGASTRODUODENOSCOPY (EGD), FLEXIBLE, TRANSORAL, DIAGNOSTIC performed by Rajinder Wheeler MD at [facility] EGD, FLEXIBLE, DIAGNOSTIC 06/08/2023 ESOPHAGOGASTRODUODENOSCOPY (EGD), FLEXIBLE, TRANSORAL, DIAGNOSTIC performed by Sushant Alicea MD at [facility] ESOPHAGOSCOPY, FLEXIBLE, DIAGNOSTIC N/A 06/06/2023 ESOPHAGOSCOPY DIAGNOSTIC performed by Sushant Alicea MD at OR [facility] EXC BREAST LESION RADMARK 01/30/2008 EXCISION OF BREAST LESION RADIOLOGICAL MARKER performed by PAUL PEDRO at OR [facility] EXPLORATION OF ABDOMEN N/A 06/06/2023 EXPLORATORY LAPAROTOMY performed by Sushant Alicea MD at [facility] EXPLORATION OF ABDOMEN N/A 06/08/2023 EXPLORATORY LAPAROTOMY performed by Sushant Alicea MD at [facility] FOOT/TOE SURGERY NEC Foot/Toes Surgery Proc Unlisted HYSTEROSCOPY W/BIOPSY AND/OR POLYPECTOMY W/WO D&C 01/30/2008 HYSTEROSCOPY WITH BIOPSY performed by ABIEL CHOI JR at OR [facility] HYSTEROSCOPY W/BIOPSY AND/OR POLYPECTOMY W/WO D&C 06/21/2011 HYSTEROSCOPY WITH BIOPSY AND/OR POLYPECTOMY performed by ABIEL CHOI JR at OR [facility] IDENTIFY SENTINEL NODE, RADIOACTIVE TRACER 02/24/2008 INJECTION PROCEDURE FOR IDENTIFICATION SENTINEL NODE performed by PAUL PEDRO at OR [facility] IMPLANT MESH W/ ABD HERNIA REPR/DEBRIDE N/A 10/10/2019 IMPLANTATION MESH WITH INCISIONAL/VENTRAL HERNIA performed by Gigi Hendrickson MD at OR [facility] INFORMATION Left *MRI* Left breast pouncer machine model#[id number] thru [id number] Contains Magnet INJECTION OF EYE DRUG Right 02/28/2021 # 1 Avastin OD, INJECTION OF EYE DRUG Right 04/12/2021 # 2 Avastin OD, INJECTION OF EYE DRUG Right 05/25/2021 # 3 Avastin OD, INSERT PER EUGENE ACC DEV;5/OLDER 03/12/2008 INSERT PICC WITH PORT 5 YEARS AND OLDER performed by PAUL PEDRO at OR [facility] LAPAROSCOPY DIAGNOSTIC N/A 06/06/2023 LAPAROSCOPY DIAGNOSTIC performed by Sushant Alicea MD at OR [facility] MASTECTOMY, SIMPLE, COMPLETE 02/24/2008 MASTECTOMY SIMPLE COMPLETE performed by PAUL PEDRO at OR [facility] NEG PRESSURE WOUND THERAPY DME >50 SQ CM N/A 06/06/2023 NEGATIVE PRESSURE WOUND THERAPY GREATER THAN 50SQ CM performed by Sushant Alicea MD at OR [facility] OTHER ACT 112 Signed, 12/07/2020 OTHER Avastin OD consent signed, 02/28/2021-02/28/2022 PARTIAL COLECTOMY W/ANASTOMOSIS 2004 Colectomy Partial REMOVAL OF APPENDIX Appendectomy REMOVAL OF BREAST IMPLANT 07/11/2010 REMOVAL OF INTACT MAMMARY IMPLANT performed by DEON BARBOSA II at OR [facility] REMOVAL OF OVARY/OVIDUCT(S) 08/25/2011 SALPINGO OOPHORECTOMY performed by ABIEL CHOI JR at OR [facility] REMOVE ARMPIT LYMPH NODES, COMPLETE 02/24/2008 AXILLARY LYMPHADENECTOMY COMPLETE performed by PAUL PEDRO at OR [facility] REMOVE CATARACT, INSERT LENS PROSTH Right 09/15/2020 EXTRACAPSULAR CATARACT REMOVAL WITH INTRAOCULAR LENS performed by Cece Cook MD at OR [facility] REPAIR INITIAL INCISIONAL OR VENTRAL HERNIA; REDUCIBLE N/A 10/10/2019 REPAIR INITIAL INCISIONAL /VENTRAL HERNIA REDUCIBLE performed by Gigi Hendrickson MD at [facility] REPLACE AORTIC VALVE, PERCUTANEOUS FEMORAL Bilateral 11/06/2017 REPLACE AORTIC VALVE, PERCUTANEOUS FEMORAL performed by Dawood Laird MD at [facility] REPLACE AORTIC VALVE, PERCUTANEOUS FEMORAL 11/06/2017 REPLACE AORTIC VALVE, PERCUTANEOUS FEMORAL performed by Belinda Liang MD at [facility] REPLACEMENT AORTIC VALVE, BYPASS WITH PROSTHETIC VALVE 11/01/2010 REPLACEMENT AORTIC VALVE performed by RITA MEEKS at OR [facility] REVISION OF ULNAR NERVE AT ELBOW Right 02/23/2015 NEUROPLASTY AND OR TRANSPOSITION ULNAR NERVE ELBOW performed by Levi Peralta MD at OR [facility] SIGMOIDOSCOPY, DIAGNOSTIC N/A 06/08/2023 SIGMOIDOSCOPY FLEXIBLE DIAGNOSTIC performed by Sushant Alicea MD at OR [facility] TOTAL ABD HYSTERECTOMY W/WO REMOVAL OF TUBE(S) 08/25/2011 TOTAL ABDOMINAL HYSTERECTOMY WITH OR WITHOUT TUBES AND OVARIES performed by ABIEL CHOI JR [facility] Review of patient's allergies indicates: Allergen Reactions [...] mg/dL for hypoglycemia E11.9 100 Tab 3 Melatonin 10 MG Oral Capsule Take [...] BREAKFAST OR OTHER MEDICATIONS 90 Tablet 2 Potassium Chloride Shannon ER 10 MEQ Oral [...] feet once daily. 400 g 3 Nystatin 536585 UNIT/GM External Powder (Nystop) Apply topically to [...] Capsule 5 CPAP every night at bedtime. prednisoLONE Acetate 1 % Ophthalmic Suspension (Pred [...] 2 Capsules by mouth in the morning. OneTouch Verio w/Device Kit Use up to 4 times a day E11.9 1 Kit 0 OneTouch Delica Lancets 33G TEST 4 TIMES DAILY DIRECTED, E11.9 400 Each 3 Omnipod 5 G6 Pod (Gen 5) Use as directed. Use 1 pod every 3 days (Patient not taking: Reported on 01/08/2024) 30 Each 3 Omnipod 5 G6 Intro (Gen 5) Kit Use as directed. Use to delivery insulin via insulin pump (Patient not taking: Reported on 01/08/2024) 1 Kit 0 OneTouch Verio In Vitro Strip (Glucose Blood) Use up to 4 times a day E11.9 100 Strip 11 Venelex External Ointment Apply topically to affected [...] taking: Reported on 01/08/2024) 5 Each 3 One-A-Day Womens 50 Plus Oral Tablet Take 1 Tablet by mouth in the morning. No current facility-administered medications for this visit. OBJECTIVE/PHYSICAL EXAMINATION: BP 152/74 (BP Site: Left Arm, BP Position: Sitting, BP Cuff Size: Large) | Pulse 96 | Resp 14 | Wt 70.6 kg (155 lb 11.2 oz) | LMP 04/07/2011 | BMI 31.43 kg/m | BSA 1.71 m Wt Readings from Last 3 Encounters: 01/08/24 70.6 kg (155 lb 11.2 oz) 01/08/24 71.2 kg (156 lb 14.4 oz) 01/02/24 70 kg (154 lb 6.4 oz) General: no acute distress and stated age, [...] ALMA report reviewed dated May 2023 at [facility]: Interpretation Summary The examination is adequate to [...] GI Bleed/anemia - post exploratory lap PLAN: Zio patch monitor performed after her previous cardiology appointment for the evaluation of occult atrial fibrillation sending splenic infarcts was negative for atrial fibrillation. Volume status appears stable. Continue off of the torsemide. Patient counseled to be on account forsymptoms that would suggest volume overload such as swelling legs, shortness of breath, orthopnea. She states that overall with her weight loss, breathing is much improved. The images of the transesophageal echocardiogram had been performed at [facility] were reviewed independently. The prosthetic TAVR leaflets relatively well visualized with normal excursion and without prosthetic stenosis or regurgitation which is encouraging. 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 Patient is back on aspirin and clopidogrel which he was to continue given her history of left main coronary stenting. She was due for a chemistry panel and a few other studies which were ordered by Nephrology, and will make arrangements for her to have these obtained at the conclusion of our cardiology appointment. Roberto Carlos Muniz DO Department of Cardiology This chart was completed in part utilizing [employer] Speech Voice Recognition Software. Grammatical errors, random [...] documented in this encounter Nursing Notes * Whitney Mitchell RN - 01/08/2024 11:26 AM EDT Examination Room: Name: Jovita Rose Date of : (1960). Reason for Visit: Follow up Interim Hospitalization(s): [facility]-Dehydration Problems/Concerns: Currently not taking Torsemide. Denies increase swelling or weight gain. Chest Pain/SOB: Denies [facility] Discussed: Not applicable [facility] is a way you can [...] 01/24/2024 2:45 PM EDT Office Visit Ophthalmology, [facility] [address] [place] [address] Ramsey Burnett [facility] [address] [facility] [place] [address] 02/04/2024 10:20 AM EDT Office Visit Family Practice [facility] [address] [place] [address] Deon Rausch [facility] [address] [facility] [place] [address] 02/13/2024 10:00 AM EDT Home Visit [facility] [address] [place] [address] Jaycee Sorto RN [address] [facility] [place] [address] 02/21/2024 9:00 AM EDT Office Visit Pharmacy, [facility] [address] [place] [address] Pharmacist1, [facility] [address] [facility] [place] [address] 06/03/2024 9:00 AM EDT Telemedicine Psychiatry, [place] [address] [place] [address] Janice Atwood MD [address] [place] [address] 07/17/2024 9:30 AM EDT Office Visit Cardiology, [facility] [address] [place] [address] Roberto Carlos Muniz, [address] [place] [address] 11/27/2024 9:40 AM EST Office Visit Nephrology, [facility] [address] [place] [address] Fidelina Baumann MD [address] [place] [address] Scheduled Procedures Name Priority Associated Diagnoses Date/Ti [...] Additional history exists CKD PHOS USE SMARTSET 29207 06/18/202405/26, 06/16/2023, 06/15/2023, Additional history exists GFR 07/09/2024 01/08/2024, 09/25, 08/02/2023, Additional history exists Diabetic Eye Exam 09/13/2024 09/13/2023, , 09/13/2023, Additional history exists B-12 09/18/2024 09/18/2023, 08/24, 2020, Additional history exists Albumin/Creatinine Ratio 01/07/2025 024, 03/09/2023, 12/22/2022, Additional history exists CKD HGB USE SMARTSET 28270 01/07/202501/07, 01/08/2024, 10/15/2023, Additional history exists TSH [...] this encounter Medical Devices Implanted Type Area Lepidopterist Device Identifier Shelf Expiration Date Model / Serial / Lot Cath Roselia Single Lumen - [id number] Implanted:Qty : 1 on 03/12/2008 at OR [facility] Left: Chest [facility] *DO NOT USE* 07/25/2012 21-4053-24 / / [id number] Sut Steel 6 M654g - [id number] Implanted:Qty : 1 on 11/01/2010 at OR [facility] N/A: Chest DO NOT USE M654G / / Sut Steel 6 M654g - [id number] Implanted:Qty : 1 on 11/01/2010 at OR [facility] N/A: Chest DO NOT USE M654G / / Valve Tarsha Aortic [id number] - [id number] Implanted:Qty : 1 on 11/01/2010 at OR [facility] N/A: Heart [employer] 05/20/2012 [id number]-[id number] / / [id number] Mesh Soft [id number] - [id number] Implanted:Qty : 1 on 10/10/2019 by Gigi Hendrickson MD at OR [facility] N/A: Abdomen CR BARD : DAVOL [id number] 05/21/2024 [id number] / / [id number] Lens 22.5 Sn60wf - [id number] - [id number] Implanted:Qty : 1 on 09/15/2020 by Renaldo Cook, Cece Acosta MD at OR [facility] Right: Eye IVA : SURGICAL [id number] 05/13/2025 SN60 WF.225 / [id number] / [id number] Lens 21.5 Sn60wf - [id number] - [id number] Implanted:Qty : 1 on 12/19/2023 by Ramsey Burnett DO at OR [facility] Left: Eye IVA : SURGICAL 12/03/2024 SN60WF.2 15 / [id number] / documented as of this encounter Visit Diagnoses Diagnosis S/P TAVR (transcatheter aortic valve replacement)- Primary Heart valve replaced by other means Chronic heart failure with preserved ejection fraction (HCC) HTN, goal below 140/90 Unspecified essential hypertension History of GI bleed Personal history of other diseases of digestive system documented in this encounter Advance Directives Latest [...] the patient have Health Care Power of Data Operations Leader? No Full Code 10/10/2019 8:40 AM 10/10/2019 5:53 PM This order reflects the patients wishes and were consensually agreed upon. Healthcare Agents on File Name Relationship Healthcare Agent Relationshi p Communication Gigi Rose Adult Child Health Care Repr esentative (appointed verbally by patient or by statute hierarchy) Care Teams Brand Coordinator Relationship Specialty Start Date End Date Deon Rausch MD [address] [place] [address] PCP - General Family Medicine 02/12/20 documented as of this encounter
--- OUTSIDE RECORDS SUMMARY | 2024-06-05 14:59 | External Medical Summary | Summary of Care ---
Author Name Unknown Organization [facility] Address [address] [place] [address] Phone [phone] Care Team Providers Care [employer] Name Role Phone Gregory Rausch MD Primary Care Provider [phone] Reason for Referral * Evaluate & Treat - Unlimited Visits (Within 10 days (routine)) - Pending Review Specialty Diagnoses / Procedures Referred By Contac t Referred To Contact Pharmacist / Pharmacy Diagnoses HTN, goal below 130/80 Fidelina Baumann MD [address] [place] [address] Referral ID Status Reason Start Date Expiration Date Visits Requested Visits Authorized [id number] Pending Review Specialty Services Required 01/09/2024 99 99 Question Answer Referral Priority Within 10 days (routine) [facility] Referring Provider Role: Specialist Specialty: Nephro Reason for Referral: HTN Goal BP: < 140/90 Comments Patient has been successfully enrolled to the [id number] hypertension self-management program. Standard alarm settings for this patient have been [...] have her medication therapy managed by the [facility] ([facility]) per established policies, procedures, and protocols. I also certify that this referral may serve as an initiation of service for the management of drug therapy in the above noted patient. [facility] providers will be responsible for scheduling patient visits, obtaining appropriate laboratory studies, and adjusting medication management therapy per patient's need, in addition to those roles spelled out in the clinic policy, procedures, and drug management protocols. I understand that the service provided by the [facility] Clinic is voluntary and have informed patient that they can refuse the service at their discretion. I am aware that the [facility] Clinic will provide me with a copy of the patient encounter via my [facility]. I authorize the [facility] to carry out these activities on my behalf. I consider this program to be a necessary part of the patient's medical care. Debo Antonio RN Encounter Details Date Type Department Care Team (Late st Contact Info) Description 01/09/2024 Orders Only Nephrology, [place] [address] [place] [address] Fidleina Baumann MD [address] [place] [address] HTN, goal below 130/80* Allergies Active Allergy [...] hypoglycemia E11.9 100 Tab 3 07/06/2021 Active TrendzoTouch Verio w/Device Kit Use up to 4 [...] ER 10 MEQ Oral Tablet Extended ReleaseIndications:Ac ione on chronic heart failure with preserved ejection [...] systolic, due to idiopathic cardiomyopathy ([facility]),S/P aortic valve replacement,HTN, goal below 140/80,Dyslipidemia, [...] Additional Information Patient not taking.Reported on 12/03/2023 Torsemide 10 MG Oral Tablet (Demadex) Take [...] daily. 400 g 3 10/02/2023 Active Nystatin 043997 UNIT/GM External Powder (Nystop)Indications:C andidal intertrigo Apply [...] [facility]),Type 2 diabetes mellitus with diabetic mononeuropathy, with long-term current use of insulin ([facility]),Type 2 diabetes mellitus with both eyes affected by mild nonproliferative retinopathy and macular edema, with long-term current use of insulin ([facility]),Type 2 diabetes mellitus with stage 3a chronic kidney disease, with long-term current use of insulin ([facility]) Inject 2 mg under the skin once a week. 9 mL 3 10/01/2023 Active Additional Information Patient taking differently:2 mg Subcutaneous QWEEK,Indications: weekly on fridays, Reported on 11/26/2023 traZODone HCl 100 MG Oral Tablet (Desyrel) [...] (Neurontin)Indication s:Polyneuropathy associated with underlying disease ([facility] [...] by mouth in the morning. 0 Active documented as of this encounter [...] eye 09/28/2020 Coronary artery disease invo lving [place] coronary artery of [place] heart without angina pectoris 12/16/2019 Last [...] 12/21/2016 Diabetes mellitus 01/05/2014 12/21/2016 LEYVA RESEARCH OTHER*[id number] 01/05/2014 12/21/2016 Axillary pain 11/03/2013 12/21/2016 Obesity, [...] 09/201008/26/2011 12/21/2016 FOLLOWING SURGERY, [facility]PEC[facility] 08/25/2011) 08/26/2011 12/21/2016 ADVANCE DIRECTIVE INFORMATION 04/17/2011 12/21/2016 Overview: Yes, Patient instructed to provide copy of advance directive for provider to review and to be scanned into Electronic Medical Record ADVANCE DIRECTIVE INFORMATION 03/01/2011 12/21/2016 Overview: Yes, Patient instructed to provide copy of advance directive for provider to review and to be scanned into Electronic Medical Record [facility] V710 Clinical Trial*[id number] 12/22/2010 04/14/2011 S/P aortic valve replacement 12/01/2010 08/26/2011 S/P AORTIC VALVE REPLACEMENT - #25 pericardial Hernandez valve 11/01/2010 06/28/2018 Overview: Aortic valve replacement with #25 pericardial Hernandez valve, model 2800TFX, serial number [id number] (Dr. Walker) [facility] V710 Clinical Trial*[id number] 10/18/2010 11/21/2010 Body mass index (BMI) of [...] 06/07/2018,01/08/20 18,12/05/2017,06/15,10/27/2013,09/12/2013 Pneumococcal Conjugate Vacci ne, 20-valent ([id number]) 06/22/2023 Pneumococcal Polysaccharide PPV23 (Pneumovax) 01/02/2008 Seasonal [...] Team (Late st Contact Info) Description 01/09/2024 11:30 AM EDT Telemedicine Psychology [facility] [address] [place] [address] Jovita Aquino, [facility] [address] [place] [address] 01/24/2024 2:45 PM EDT Office Visit Ophthalmology, [facility] [address] [facility] [place] [address] Ramsey Burnett, DO [address] [facility] [place] [address] 02/04/2024 10:20 AM EDT Office Visit Family Practice [facility] [address] [facility] [place] [address] Gregory Rausch MD 132 [facility] [place] [address] 02/13/2024 10:00 AM EDT Home Visit [place] at Home, [facility] [address] [facility] [place] [address] Jaycee Sorto RN [address] [facility] [place] [address] 02/21/2024 9:00 AM EDT Office Visit Pharmacy, [facility] [address] [facility] [place] [address] Pharmacist1, [facility] [address] [facility] [place] [address] 06/03/2024 9:00 AM EDT Telemedicine Psychiatry, [place] [address] [place] [address] Janice Atwood MD [address] [place] [address] 07/17/2024 9:30 AM EDT Office Visit Cardiology, [facility] [address] [facility] [place] [address] Roberto Carlos Muniz, [address] [facility] [place] [address] 11/27/2024 9:40 AM EST Office Visit Nephrology, [facility] [address] [place] [address] Fidelina Baumann MD [address] [place] [address] Scheduled Procedures Name Priority Associated Diagnoses Date/Ti me EXTRACAPSULAR CATARACT REMOV AL COMPLEX WITH IOL Cataract COLONOSCOPY FLEXIBLE PROXIMAL DIAGNOSTIC Recall History of colon polyps ESOPHAGOGASTRODUODENOSCOPY ( EGD), FLEXIBLE, TRANSORAL, DIAGNOSTIC Recall Cirrhosis (HCC) COLONOSCOPY FLEXIBLE PROXIMAL DIAGNOSTIC Recall Personal history of colonic polyps Scheduled Referrals Name Type Priority Associated Diagnoses Orde r Schedule PHARMACIST MEDS THERAPY MGMT REFERRAL OP Referral Within 10 days (routine) HTN, goal below 130/80 Ordered: 01/09/2024 Health Maintenance Due Date Last Done Comments HIV Screening 1975 Diabetic Foot Exam 2021 2020, 0 12/05/2018, 12/05/2017, Additional history exists COVID-19 Vaccine ( season) 2023 10/25/2021, 02/16/2021, 01/18/2021 DXA Scan 12/18/2023 01/12/2009 Depression, Most Recent Score >= 10 (will fire each visit until score < 10) 12/26/2023 12/25/2023 HbA1c 03/19/2024 09/18/2023, 1103/2023, 04/09/2023, Additional history exists CKD PHOS USE SMARTSET 61504 06/18/202405/26, 06/16/2023, 06/15/2023, Additional history exists GFR 07/09/2024 01/08/2024, 09/25, 08/02/2023, Additional history exists Diabetic Eye Exam 09/13/2024 09/13/2023, , 09/13/2023, Additional history exists B-12 09/18/2024 09/18/2023, 08/24, 2020, Additional history exists Albumin/Creatinine Ratio 01/07/2025 024, 03/09/2023, 12/22/2022, Additional history exists CKD HGB USE SMARTSET 50808 01/07/202501/07, 01/08/2024, 10/15/2023, Additional history exists TSH [...] this encounter Medical Devices Implanted Type Area Snack Steward Device Identifier Shelf Expiration Date Model / Serial / Lot Cath Roselia Single Lumen - [id number] Implanted:Qty : 1 on 03/12/2008 at OR [facility] Left: Chest [facility] *DO NOT USE* 07/25/2012 21-4053-24 / / [id number] Sut Steel 6 M654g - [id number] Implanted:Qty : 1 on 11/01/2010 at OR [facility] N/A: Chest DO NOT USE M654G / / Sut Steel 6 M654g - [id number] Implanted:Qty : 1 on 11/01/2010 at OR [facility] N/A: Chest DO NOT USE M654G / / Valve Tarsha Aortic [id number] - [id number] Implanted:Qty : 1 on 11/01/2010 at OR [facility] N/A: Heart Kimengi DANIEL 05/20/2012 2800TFX-25 / / [id number] Mesh Soft 92n30qg - [id number] Implanted:Qty : 1 on 10/10/2019 by Gigi Hendrickson MD at OR [facility] N/A: Abdomen CR BARD : DAVOL [id number] 05/21/2024 [id number] / / [id number] Lens 22.5 Sn60wf - [id number] - [id number] Implanted:Qty : 1 on 09/15/2020 by Renaldo Cook, Cece Acosta MD at OR [facility] Right: Eye IVA : SURGICAL [id number] 05/13/2025 SN60 WF.225 / [id number] / [id number] Lens 21.5 Sn60wf - [id number] - [id number] Implanted:Qty : 1 on 12/19/2023 by Ramsey Burnett DO at OR [facility] Left: Eye IVA : SURGICAL 12/03/2024 SN60WF.2 15 / [id number] / documented as of this encounter [...] the patient have Health Care Power of Real Estate Leasing Agent? No Full Code 10/10/2019 8:40 AM 10/10/2019 5:53 PM This order reflects the patients wishes and were consensually agreed upon. Healthcare Agents on File Name Relationship Healthcare Agent Relationshi p Communication Gigi Rose Adult Child Health Care Repr esentative (appointed verbally by patient or by statute hierarchy) Care Teams [employer] Relationship Specialty Start Date End Date Gregory Rausch MD [address] [place] [address] PCP - General Family Medicine 02/12/20 documented as of this encounter
--- OUTSIDE RECORDS SUMMARY | 2024-06-05 14:59 | External Medical Summary | Summary of Care ---
Author Name Unknown Organization [facility] Address [address] [place] [address] Phone [phone] Care Team Providers Care Emt/Dispatcher Name Role Phone Gregory Rausch MD Primary Care Provider [phone] Reason for Visit * Reason Onset Date Comments Medication Refill 01/09/2024 Encounter Details Date Type Department Care Team (Late st Contact Info) Description 01/09/2024 Refill General Internal Medicine [facility] [address] [facility] [place] [address] Victoria Garcia MD [address] [place] [address] Dizziness Allergies Active Allergy Reactions Criticality Noted [...] hypoglycemia E11.9 100 Tab 3 07/06/2021 Active StorieTouch Verio w/Device Kit Use up to 4 times a day E11.9 1 Kit 0 02/10/2022 Active StorieTouch Delica Lancets 33G TEST 4 TIMES DAILY [...] OTHER MEDICATIONS 90 Tablet 2 05/05/2023 Active StorieTouch Verio In Vitro Strip (Glucose Blood) Use [...] s:Heart failure, systolic, due to idiopathic cardiomyopathy ([facility]),S/P aortic valve replacement,HTN, goal below 140/80,Dyslipidemia , [...] less than 7.0% ([facility]) Use up to 50 units per [...] daily. 400 g 3 10/02/2023 Active Nystatin 941491 UNIT/GM External Powder (Nystop)Indications :Candidal intertrigo Apply [...] a week. 9 mL 3 01/09/2024 Active Fluticasone Propionate 50 MCG/ACT Nasal Suspension (Flonase)Indication s:Dizziness Administer 2 Sprays into each nostril in the morning. 16 g 3 03/01/2023 01/09/20 24 Discontinu ed(Refill) documented as of [...] 12/21/2016 Diabetes mellitus 01/05/2014 12/21/2016 LEYVA RESEARCH OTHER*[id number] 01/05/2014 12/21/2016 Axillary pain 11/03/2013 12/21/2016 Obesity, [...] be scanned into Electronic Medical Record [facility] V710 Clinical Trial*[id number] 12/22/2010 04/14/2011 S/P aortic valve replacement 12/01/2010 08/26/2011 S/P AORTIC VALVE REPLACEMENT - #25 pericardial Hernandez valve 11/01/2010 06/28/2018 Overview: Aortic valve replacement with #25 pericardial Hernandez valve, model 2800TFX, serial number [id number] (Dr. Walker) [facility] V710 Clinical Trial*[id number] 10/18/2010 11/21/2010 Body mass index (BMI) of 40.0-44.9 in adult 08/29/2010 04/16/2012 Overview: ICD-10 update of inactive term Medical home patient encounter 07/11/2010 04/18/2023 Inflammatory disorder of breast 07/11/2010 12/21/2016 Other hammer toe (acquired) 06/10/2010 12/21/2016 Plantar fibromatosis 06/10/2010 03/30/2 017 Obesity, morbid (more than 1 00 [...] 06/07/2018,01/08/20 18,12/05/2017,06/15,10/27/2013,09/12/2013 Pneumococcal Conjugate Vacci ne, 20-valent ([id number]) 06/22/2023 Pneumococcal Polysaccharide PPV23 (Pneumovax) 01/02/2008 Seasonal [...] encounter Miscellaneous Notes * Telephone Encounter - Juan Kerns RPh - 01/09/2024 7:52 PM EDT Signed Prescriptions: Disp Refills Fluticasone Propionate 50 MCG/ACT Nasal Bhatt*16 g 3 Sig: Administer 2 Sprays into each nostril in the morning.Authorizing Provider: VICTORIA GARCIA User: JUAN KERNS documented in this encounter Plan of Treatment Upcoming Encounters Date Type Department Care Team (Late st Contact Info) Description 01/24/2024 2:45 PM EDT Office Visit Ophthalmology, [facility] [place] [address] Ramsey Burnett, [address] [place] [address] 02/04/2024 10:20 AM EDT Office Visit Family Practice [facility] [address] [facility] [place] [address] Gregory Rausch MD [address] [place] [address] 02/13/2024 10:00 AM EDT [facility] [address] [place] [address] Jaycee Sorto RN [address] [place] [address] 02/21/2024 9:00 AM EDT Office Visit Pharmacy, [facility] [address] [place] [address] Pharmacist1, [facility] [address] [place] [address] 06/03/2024 9:00 AM EDT Telemedicine Psychiatry, [place] [address] [place] [address] Janice Atwood MD [address] [place] [address] 07/17/2024 9:30 AM EDT Office Visit Cardiology, [facility] [address] [place] [address] Roberto Carlos Muniz, [address] [place] [address] 11/27/2024 9:40 AM EST Office Visit Nephrology, [facility] [place] [address] [place] [address] Fidelina Baumann MD [address] [facility] [place] [address] Scheduled Procedures Name Priority Associated Diagnoses Date/Ti [...] Additional history exists CKD PHOS USE SMARTSET 15964 06/18/202405/26, 06/16/2023, 06/15/2023, Additional history exists GFR 07/09/2024 01/08/2024, 09/25, 08/02/2023, Additional history exists Diabetic Eye Exam 09/13/2024 09/13/2023, , 09/13/2023, Additional history exists B-12 09/18/2024 09/18/2023, 08/24, 2020, Additional history exists Albumin/Creatinine Ratio 01/07/2025 024, 03/09/2023, 12/22/2022, Additional history exists CKD HGB USE SMARTSET 95383 01/07/202501/07, 01/08/2024, 10/15/2023, Additional history exists TSH [...] this encounter Medical Devices Implanted Type Area Feather Edger Device Identifier Shelf Expiration Date Model / Serial / Lot Cath Roselia Single Lumen - [id number] Implanted:Qty : 1 on 03/12/2008 at OR [facility] Left: Chest [facility] *DO NOT USE* 07/25/2012 21-4053-24 / / [id number] Sut Steel 6 M654g - [id number] Implanted:Qty : 1 on 11/01/2010 at OR [facility] N/A: Chest DO NOT USE M654G / / Sut Steel 6 M654g - [id number] Implanted:Qty : 1 on 11/01/2010 at OR [facility] N/A: Chest DO NOT USE M654G / / Valve Tarsha Aortic [id number] - [id number] Implanted:Qty : 1 on 11/01/2010 at OR [facility] N/A: Heart [employer] DANIEL 05/20/2012 2800TFX-25 / / [id number] Mesh Soft 23y47cg - [id number] Implanted:Qty : 1 on 10/10/2019 by Gigi Hendrickson MD at OR [facility] N/A: Abdomen CR BARD : DAVOL [id number] 05/21/2024 [id number] / / [id number] Lens 22.5 Sn60wf - [id number] - [id number] Implanted:Qty : 1 on 09/15/2020 by Cece Roland MD at OR [facility] Right: Eye IVA : SURGICAL [id number] 05/13/2025 SN60 WF.225 / [id number] / [id number] Lens 21.5 Sn60wf - [id number] - [id number] Implanted:Qty : 1 on 12/19/2023 by Ramsey Burnett DO at OR [facility] Left: Eye IVA : SURGICAL 12/03/2024 SN60WF.2 15 / [id number] / documented as of this encounter [...] the patient have Health Care Power of Squirt Machine Operator? No Full Code 10/10/2019 8:40 AM 10/10/2019 5:53 PM This order reflects the patients wishes and were consensually agreed upon. Healthcare Agents on File Name Relationship Healthcare Agent [facility] p Communication Gigi Rose Adult Child Health Care Repr esentative (appointed verbally by patient or by statute hierarchy) Care Teams Emt/Dispatcher Relationship Specialty Start Date End Date Gregory Rausch MD [address] [place] [address] PCP - General Family Medicine 02/12/20 documented as of this encounter
--- OUTSIDE RECORDS SUMMARY | 2024-06-05 14:59 | External Medical Summary | Summary of Care ---
Author Name Unknown Organization [facility] Address [address] [place] [address] Phone [phone] Care Team Providers Care Brake Drum Molder Name Role Phone Deon Rausch MD Primary Care Provider [phone] Reason for Visit * Reason Onset Date Comments Medication Refill 01/09/2024 Encounter Details Date Type Department Care Team (Late st Contact Info) Description 01/09/2024 Refill Pharmacy, [facility] [address] [address] Deon Rausch MD [address] [place] [address] Type 2 diabetes mellitus with hemoglobin A1c goal of less than 7.0% ([facility]); Type 2 diabetes mellitus with diabetic mononeuropathy, with long-term current use of insulin ([facility]); Type 2 diabetes mellitus with both eyes affected by mild nonproliferative retinopathy and macular edema, with long-term current use of insulin ([facility]); Type 2 diabetes mellitus with stage 3a chronic kidney disease, with long-term current use of insulin ([facility]) Allergies Active Allergy Reactions [...] hypoglycemia E11.9 100 Tab 3 1 Active MediVisionTouch Verio w/Device Kit Use up to 4 times a day E11.9 1 Kit 0 2 Active MediVisionTouch Delica Lancets 33G TEST 4 TIMES DAILY [...] daily. 400 g 3 4 Active Nystatin 796571 UNIT/GM External Powder (Nystop)Indications:C andidal intertrigo Apply [...] less than 7.0% ([facility]) Use as directed. Use 1 transmitter every 90 days E 11.9 1 Each 4 Active Dexcom G6 SensorIndications:Typ e 2 [...] by mouth in the morning. 0 Active Ozempic (2 MG/DOSE) 8 MG/3ML Subcutaneous Solution Pen-injector (Semaglutide (2 MG/DOSE))Indications: weekly on fridays Inject 2 mg under the skin once a week. 9 mL 3 4 Active Ozempic (2 MG/DOSE) 8 MG/3ML Subcutaneous Solution Pen-injector (Semaglutide (2 MG/DOSE))Indications: Type 2 diabetes mellitus with hemoglobin A1c goal of less than 7.0% ([facility]),Type 2 diabetes mellitus with diabetic mononeuropathy, with long-term current use of insulin ([facility]),Type 2 diabetes mellitus with both eyes affected by mild nonproliferative retinopathy and macular edema, with long-term current use of insulin ([facility]),Type 2 diabetes mellitus with stage 3a chronic kidney disease, with long-term current use of insulin ([facility]) Inject 2 mg under the [...] eye 09/28/2020 Coronary artery disease invo lving [place] coronary artery of [place] heart without angina pectoris 12/16/2019 Last Assessment [...] 12/21/2016 Diabetes mellitus 01/05/2014 12/21/2016 LEYVA RESEARCH OTHER*[id number] 01/05/2014 12/21/2016 Axillary pain 11/03/2013 12/21/2016 Obesity, [...] into Electronic Medical Record [place] V710 Clinical Trial*[id number] 12/22/2010 04/14/2011 S/P aortic valve replacement 12/01/2010 08/26/2011 S/P AORTIC VALVE REPLACEMENT - #25 pericardial Mc valve 11/01/2010 06/28/2018 Overview: Aortic valve replacement with #25 pericardial Mc valve, model 2800TFX, serial number [id number] (Dr. Walker) [facility] V710 Clinical Trial*[id number] 10/18/2010 11/21/2010 Body mass index (BMI) of [...] 06/07/2018,01/08/20 18,12/05/2017,06/15,10/27/2013,09/12/2013 Pneumococcal Conjugate Vacci ne, 20-valent (Reahspc82) 06/22/2023 Pneumococcal Polysaccharide PPV23 (Pneumovax) 01/02/2008 Seasonal [...] encounter Miscellaneous Notes * Telephone Encounter - Joselito Matthew RPh - 01/09/2024 4:23 PM EDTSigned Prescriptions: Disp Refills Ozempic (2 MG/DOSE) 8 MG/3ML Subcutaneous *9 mL 3 Sig: Inject 2 mg under the skin once a week.Authorizing Provider: DEON RAUSCH User: JOSELITO ISIDRO V * Telephone Encounter - Joselito Matthew RPh - 01/09/2024 4:21 PM EDT Did you pend patient's preferred pharmacy and medication before forwarding?no Pharmacy: [id number] Pending Prescriptions: Disp Refills Ozempic (2 MG/DOSE) 8 MG/3ML Subcutaneous*9 mL 3 Sig: Inject 2 mg under the skin once a week. Last Visit: 02/22/2023 (in office), 03/01/2023 (telemedicine) Next Visit: Visit date not found If no future appointments scheduled, and last appointment is greater than a year ago, please schedule patient for a follow-up appointment Last date the medication was ordered: 10/01/23 Is this request for a controlled substance?No [...] AM HGBA1C 8.3 (H) 12/09/2019 01:49 PM Joselito Isidro RPh, CACP, CDE Clinical Pharmacist [facility] 01/09/2024, 4:21 PM * Telephone Encounter - Fang Cisneros RP - 01/09/2024 4:20 PM EDT Pending Prescriptions: Disp Refills Ozempic (2 MG/DOSE) 8 MG/3ML Subcutaneous *9 mL 3 Sig: Inject 2mg under the skin once a week. documented in this encounter Plan of Treatment Upcoming Encounters Date Type Department Care Team (Late st Contact Info) Description 01/24/2024 2:45 PM EDT Office Visit Ophthalmology, [address] [place] [id number] Ramsey Burnett, DO 21 [facility] [place] [phone] 02/04/2024 10:20 AM EDT Office Visit Family Practice [facility] [address] [place] [address] Deon Rausch MD 132 [facility] [place] [address] 02/13/2024 10:00 AM EDT [facility], [facility] [address] [place] [address] Jaycee Sorto RN 132 [place] [address] 02/21/2024 9:00 AM EDT Office Visit Pharmacy, [facility] [address] [facility] [place] [address] Pharmacist1, [facility] [address] [facility] [place] [address] 06/03/2024 9:00 AM EDT Telemedicine Psychiatry, [place] [address] [place] [address] Janice Atwood MD [address] [place] [address] 07/17/2024 9:30 AM EDT Office Visit Cardiology, [facility] [address] [place] [address] Roberto Carlos Muniz, 132 [place] [address] 11/27/2024 9:40 AM EST Office Visit Nephrology, [facility] [address] [facility] [place] [address] Fidelina Baumann MD 200 [facility] [place] [address] Scheduled Procedures Name Priority Associated Diagnoses Date/Ti [...] < 10) 12/26/2023 12/25/2023 HbA1c 03/19/2024 09/18/2023, 03/2023, 04/09/2023, Additional history exists CKD PHOS USE SMARTSET 35842 06/18/202405/26, 06/16/2023, 06/15/2023, Additional history exists GFR 07/09/2024 01/08/2024, 09/25, 08/02/2023, Additional history exists Diabetic Eye Exam 09/13/2024 09/13/2023, , 09/13/2023, Additional history exists B-12 09/18/2024 09/18/2023, 08/24, 2020, Additional history exists Albumin/Creatinine Ratio 01/07/2025 024, 03/09/2023, 12/22/2022, Additional history exists CKD HGB USE SMARTSET 35574 01/07/202501/07, 01/08/2024, 10/15/2023, Additional history exists TSH [...] this encounter Medical Devices Implanted Type Area Relief Manager Device Identifier Shelf Expiration Date Model / Serial / Lot Cath Roselia Single Lumen - [id number] Implanted:Qty : 1 on 03/12/2008 at OR [facility] Left: Chest [facility] [place] *DO NOT USE* 07/25/2012 21-4053-24 / / [id number] Sut Steel 6 M654g - [id number] Implanted:Qty : 1 on 11/01/2010 at OR [facility] N/A: Chest DO NOT USE M654G / / Sut Steel 6 M654g - [id number] Implanted:Qty : 1 on 11/01/2010 at OR [facility] N/A: Chest DO NOT USE M654G / / Valve Tarsha Aortic [id number] - [id number] Implanted:Qty : 1 on 11/01/2010 at OR [facility] N/A: Heart [employer] DANIEL 05/20/2012 2800TFX-25 / / [id number] Mesh Soft 61s68cf - [id number] Implanted:Qty : 1 on 10/10/2019 by Gigi Hendrickson MD at [place] [facility] N/A: Abdomen CR BARD : DAVOL [id number] 05/21/2024 [id number] / / [id number] Lens 22.5 Sn60wf - [id number] - [id number] Implanted:Qty : 1 on 09/15/2020 by Renaldo Cook, Cece Acosta MD at [facility] Right: Eye IAV : SURGICAL [id number] 05/13/2025 SN60 WF.225 / [id number] / [id number] Lens 21.5 Sn60wf - [id number] - [id number] Implanted:Qty : 1 on 12/19/2023 by Ramsey Burnett DO at OR [facility] Left: Eye IVA : SURGICAL 12/03/2024 SN60WF.2 15 / [id number] / documented as of this encounter [...] current use of insulin ([facility]) documented in this encounter Advance Directives Latest [...] the patient have Health Care Power of Water Hauler? No Full Code 10/10/2019 8:40 AM 10/10/2019 5:53 PM This order reflects the patients wishes and were consensually agreed upon. Healthcare Agents on File Name Relationship Healthcare Agent [facility] p Communication Gigi Rose Adult Child Health Care Repr esentative (appointed verbally by patient or by statute hierarchy) Care Teams Brake Drum Molder Relationship Specialty Start Date End Date Deon Rausch MD [address] [address] PCP - General Family Medicine 02/12/20 documented as of this encounter
--- OUTSIDE RECORDS SUMMARY | 2024-06-05 14:59 | External Medical Summary | Summary of Care ---
Author Name Unknown Organization [facility] Address [address] [place] [address] Phone [phone] Care Team Providers Care Inspector Eyeglass Name Role Phone Gregory Rausch MD Primary Care Provider [phone] Reason for Visit * Reason Comments Psychotherapy Encounter Details Date Type Department Care Team (Late st Contact Info) Description 01/09/2024 3:00 PM EDT Telemedicine Psychology [facility] [address] [place] [address] Jovita Aquino, [facility] [address] [facility] [place] [phone] Anxiety disorder, unspecified type*; Adjustment disorder with depressed mood Allergies Active Allergy Reactions Criticality Noted Date [...] E11.9 100 Tab 3 07/06/2021 Active Sinopsys SurgicalTouch Verio w/Device Kit Use up to 4 [...] failure, systolic, due to idiopathic cardiomyopathy ([facility]),S/P aortic valve replacement,HTN, goal below [...] once daily. 400 g 10/02/2023 Active Nystatin 006385 UNIT/GM External Powder (Nystop)Indications: Candidal intertrigo Apply [...] 12/21/2016 Diabetes mellitus 01/05/2014 12/21/2016 LEYVA RESEARCH OTHER*[id number] 01/05/2014 12/21/2016 Axillary pain 11/03/2013 12/21/2016 Obesity, [...] 12/21/2016 FOLLOWING SURGERY, UNSPECIFI ED ([facility] 08/25/2011) 08/26/2011 12/21/2016 ADVANCE DIRECTIVE INFORMATION 04/17/2011 12/21/2016 Overview: Yes, Patient instructed to provide copy of advance directive for provider to review and to be scanned into Electronic Medical Record ADVANCE DIRECTIVE INFORMATION 03/01/2011 12/21/2016 Overview: Yes, Patient instructed to provide copy of advance directive for provider to review and to be scanned into Electronic Medical Record [facility] V710 Clinical Trial*[id number] 12/22/2010 04/14/2011 S/P aortic valve replacement 12/01/2010 08/26/2011 S/P AORTIC VALVE REPLACEMENT - #25 pericardial Mc valve 11/01/2010 06/28/2018 Overview: Aortic valve replacement with #25 pericardial Mc valve, model 2800TFX, serial number [id number] (Dr. Walker) [place] [id number] Clinical Trial*[id number] 10/18/2010 11/21/2010 Body mass index (BMI) of [...] 06/07/2018,01/08/20 18,12/05/2017,06/15,10/27/2013,09/12/2013 Pneumococcal Conjugate Vacci ne, 20-valent ([id number]) 06/22/2023 Pneumococcal Polysaccharide PPV23 (Pneumovax) 01/02/2008 Seasonal [...] as of this encounter Progress Notes * Jovita Aquino, ADELE - 01/09/2024 3:34 PM EDT Patient location: HOME. I was in a hospital or clinic location. After connecting through televideo,patient was verified with two unique identifiers. Patient (or authorized legal personal financial representative) was then informed that this was a Telemedicine visit and being conducted confidentially over secure lines. Methods to assure confidentiality were taken. Patient acknowledged consent and understanding of pr ivacy and security of the Telemedicine visit. The patient agreed to participate. PRIMARY CARE BEHAVIORAL HEALTH FOLLOW-UP 01/09/2024 Length of visit: 30 minutes (3:30 pm - 4;00 pm)* To note-Therapist spent ten minutes on phone whileZanaclover tried to get on video. She was not able so we continued the visit by phone. Type of Visit: individual Treatment session number: 1 AGENDA & ACTION PLAN: -Check in-Jovita reports feeling better and receiving positive affirmation from the Doctor's offices as she saw two of her treating Physicians this week. -Today we spent time processing and exploring what factors have contributed to Jovita's improvedhealth. Therapist utilizing open ended questions, closed ended questions, reflective listening and validation of feelings. Therapist also utilized strength perspective as we identified Jovita's strengths and contributions to maintaining and caring for her health.. Optional: Interventions addressed in treatment thus far: Treatment/Intervention Visit 01/09/2024 1 2 3 4 5 6 Behavioral activation Behavior modification for poor health behaviors (e.g., smoking cessation) Breathing re-training mindfulness training Cognitive restructuring/diffusion Exercise/physical activity Problem-solving Psychoeducation Exposure and/or response prevention Supportive therapy x Sleep hygiene Stimulus control Time in bed restriction Conduct WHO (CM,VALE,MTM) MENTAL STATUS EXAMINATION: No changes to mental status since last visit. No change in suicide or homicide risk status since last visit. Level of suicide completion risk:Low Risk (wish to or ideation without method, intent, plan, orbehavior; modifiable risk factors and strong protective factors; or no reported history of ideationor behavior): Pt has agreed to return for further psychotherapy. Anxiety Disorder, unspecified type and Adjustment disorder with depressed mood. 2 WEEKS for individual cognitive behavioral therapy. Jovita Aquino LCSW Primary Care Behavioral Health Psychology [facility] [address] [place] [address] documented in this encounter Plan of Treatment Upcoming Encounters Date Type Department Care Team (Late st Contact Info) Description 01/24/2024 2:45 PM EDT Office Visit Ophthalmology, [facility] [address] [address] Ramsey Burnett, DO 21 [facility] [place] [address] 02/04/2024 10:20 AM EDT Office Visit Family Practice [facility] [address] [place] [address] Gregory Rausch MD [address] [facility] [place] [address] 02/13/2024 10:00 AM EDT [facility], [facility] [address] [place] [address] Jaycee Sorto, RN [address] [place] [address] 02/21/2024 9:00 AM EDT Office Visit Pharmacy, [facility] [address] [facility] [address] [place] [address] Pharmacist1, [facility] 200 [facility] [place] [address] 06/03/2024 9:00 AM EDT Telemedicine Psychiatry, [place] [address] [place] [address] Janice Atwood MD [address] [place] [address] 07/17/2024 9:30 AM EDT Office Visit Cardiology, [facility] [address] [facility] [place] [address] Roberto Carlos Muniz, 132 [place] [address] 11/27/2024 9:40 AM EST Office Visit Nephrology, [facility] [address] [facility] [place] [address] Fidelina Baumann MD [address] [facility] [place] [address] Scheduled Procedures Name Priority Associated Diagnoses Date/Ti [...] Additional history exists CKD PHOS USE SMARTSET 76349 06/18/202405/26, 06/16/2023, 06/15/2023, Additional history exists GFR 07/09/2024 01/08/2024, 09/25, 08/02/2023, Additional history exists Diabetic Eye Exam 09/13/2024 09/13/2023, , 09/13/2023, Additional history exists B-12 09/18/2024 09/18/2023, 08/24, 2020, Additional history exists Albumin/Creatinine Ratio 01/07/2025 024, 03/09/2023, 12/22/2022, Additional history exists CKD HGB USE SMARTSET 69530 01/07/202501/07, 01/08/2024, 10/15/2023, Additional history exists TSH [...] this encounter Medical Devices Implanted Type Area Central Processing Tech Device Identifier Shelf Expiration Date Model / Serial / Lot Cath Roselia Single Lumen - [id number] Implanted:Qty : 1 on 03/12/2008 at OR [facility] Left: Chest [facility] *DO NOT USE* 07/25/2012 21-4053-24 / / [id number] Sut Steel 6 M654g - [id number] Implanted:Qty : 1 on 11/01/2010 at OR [facility] N/A: Chest DO NOT USE M654G / / Sut Steel 6 M654g - [id number] Implanted:Qty : 1 on 11/01/2010 at OR [facility] N/A: Chest DO NOT USE M654G / / Valve Tarsha Aortic [id number] - [id number] Implanted:Qty : 1 on 11/01/2010 at OR [facility] N/A: Heart [employer] [place] 05/20/2012 2800TFX-25 / / [id number] Mesh Soft [id number] - [id number] Implanted:Qty : 1 on 10/10/2019 [place] Gigi Hendrickson [place] [facility] [place]A: Abdomen CR BARD : DAVOL [id number] 05/21/2024 [id number] / / [id number] Lens 22.5 Sn60wf - [id number] - [id number] Implanted:Qty : 1 on 09/15/2020 by Renaldo Cook, Cece Acosta MD at [facility] Right: Eye IVA : SURGICAL [id number] 05/13/2025 SN60 WF.225 / [id number] / [id number] Lens 21.5 Sn60wf - [id number] - [id number] Implanted:Qty : 1 on 12/19/2023 by Ramsey Burnett, DO at OR [facility] Left: Eye IVA : SURGICAL 12/03/2024 SN60WF.2 / [id number] 022 / documented as of this encounter Visit Diagnoses Diagnosis Anxiety disorder, unspecified type- Primary Adjustment disorder with depressed mood documented in this encounter Advance Directives Latest [...] patient have Health Care Power of Senior Treasury Consultant? No Full Code 10/10/2019 8:40 AM 10/10/2019 5:53 PM This order reflects the patients wishes and were consensually agreed upon. Healthcare Agents on File Name Relationship Healthcare Agent [facility] p Communication Gigi Rose Adult Child Health Care Repr esentative (appointed verbally by patient or by statute hierarchy) Care Teams Inspector Eyeglass Relationship Specialty Start Date End Date Gregory Rausch MD [address] [place] [address] PCP - General Family Medicine 02/12/20 documented as of this encounter
--- OUTSIDE RECORDS SUMMARY | 2024-06-05 15:00 | External Medical Summary ---
Author Name Unknown Address Unknown Organization K01:LABORATORY [facility] - [address] [place] [address] Laboratory Report Ordering Provider Test Date Status DINO TAY 01/08/2024 12:29:29 Final Observation Date Value Abnormality Reference (Units ) Status Osmolality, Urine 01/08/2024 12:29:29 378 50 -1200 (mOsm/kg) Final Performing Location LABORATORY [facility] - [address] [place] [address]
--- OUTSIDE RECORDS SUMMARY | 2024-06-05 15:00 | External Medical Summary ---
Author Name Unknown Address Unknown Organization K01:LABORATORY [facility] - [facility] [address] [place] [address] Laboratory Report Ordering Provider Test Date Status JASVIRSUN 01/08/2024 12:29:29 Final Observation Date Value Abnormality Reference (Units ) Status Sodium, Urine 01/08/2024 12:29:29 78 (mmol/ L) Final Potassium, Urine 01/08/2024 12:29:29 50.2 (mm ol/L) Final Chloride, Urine 01/08/2024 12:29:29 93 (mmo l/L) Final Performing Location LABORATORY [facility] - [address] [place] [address]
--- OUTSIDE RECORDS SUMMARY | 2024-06-05 15:00 | External Medical Summary ---
Author Name Unknown Address Unknown Organization K01:LABORATORY [facility] - [address] [place] [address] Laboratory Report Ordering Provider Test Date Status DINO TAY 01/08/2024 12:22:00 Final Observation Date Value Abnormality Reference (Units ) Status Osmolality 01/08/2024 12:22:00 292 278-305 ( mOsm/kg) Final Performing Location LAB[facility]ATORY [facility] - [address] [place] [address]
--- OUTSIDE RECORDS SUMMARY | 2024-06-05 15:00 | External Medical Summary ---
Author Name Unknown Address Unknown Organization K0G[facility] [address] [place] [address] Laboratory Report Ordering Provider Test Date Status DINO TAY 01/08/2024 12:22:00 Final Observation Date Value Abnormality Reference (Units ) Status Nucleated erythrocytes/100 leukocytes [Ratio] in Blood by Automated count 01/08/2024 12:22:00 Final Performing Location [facility] - [address] [place] [address]
--- OUTSIDE RECORDS SUMMARY | 2024-06-05 15:00 | External Medical Summary | Summary of Care ---
Author Name Unknown Organization [facility] Address [address] [place] [address] Phone [phone] Care Team Providers Care Furrier Shop Supervisor Name Role Phone Gregory Rausch MD Primary Care Provider [phone] Reason for Visit * Reason Onset Date Comments Home Monitoring Orders Only 01/08/2024 Encounter Details Date Type Department Care Team (Late st Contact Info) Description 01/08/2024 Home Monitoring Nephrology, [facility] [address] [place] [address] Fidelina Baumann MD [address] [place], [place] [id number] HTN, goal below 130/80* Allergies Active Allergy Reactions Criticality Noted Date Comments Adhesive Tape 07/02/2017 Can tolerate band-aids Glycerin Other (Please comment) 03/12/2008 Topical agents with glycein-burning & itching Lactose 12/09/2014 Dairy - gas Lisinopril Cough 01/21/2010 Monosodium Glutamate Edema Other 03/12/2008 Hands and feet Penicillins Rash 11/14/2007 documented as of this encounter (statuses as of 01/08/2024) Medications Medication Sig Dispensed Refills Start Date [...] daily. 400 g 3 10/02/2023 Active Nystatin 124121 UNIT/GM External Powder (Nystop)Indications:C andidal intertrigo Apply [...] of insulin ([facility]) Inject 2 mg under the [...] than 7.0% ([facility]) Use as directed. Use 1 transmitter every 90 days E 11.9 1 Each 3 10/18/2023 Active Dexcom G6 SensorIndications:Typ e 2 diabetes mellitus with hemoglobin A1c goal of less than 7.0% ([facility]) Use as directed. Use 1 sensor every 10 days E 11.9 9 Each 3 10/18/2023 Active Gabapentin 100 MG Oral Capsule (Neurontin)Indication s:Polyneuropathy associated with underlying disease ([facility]) TAKE 1 CAPSULE BY MOUTH [...] as of this encounter (statuses as of 01/08/2024) Active Problems Problem Noted Date Diagnosed Date [...] eye 09/28/2020 Coronary artery disease invo lving citizen [place] coronary artery of [place] heart without angina pectoris 12/16/2019 Last Assessment [...] as of this encounter (statuses as of 01/08/2024) Resolved Problems Problem Noted Date Diagnosed Date [...] 12/21/2016 Diabetes mellitus 01/05/2014 12/21/2016 LEYVA RESEARCH OTHER*[id number] 01/05/2014 12/21/2016 Axillary pain 11/03/2013 12/21/2016 Obesity, [...] 09/201008/26/2011 12/21/2016 FOLLOWING SURGERY, UNSPECIFI ED ([facility] BSO 08/25/2011) 08/26/2011 12/21/2016 ADVANCE [...] [facility] V710 Clinical Trial*[id number] 12/22/2010 04/14/2011 S/P aortic valve replacement 12/01/2010 08/26/2011 S/P AORTIC VALVE REPLACEMENT - #25 pericardial Mc valve 11/01/2010 06/28/2018 Overview: Aortic valve replacement with #25 pericardial Mc valve, model 2800TFX, serial number [id number] (Dr. Walker) [facility] V710 Clinical Trial*[id number] 10/18/2010 11/21/2010 Body mass index (BMI) of [...] as of this encounter (statuses as of 01/08/2024) Immunizations Name Administration Dates Next Due COVID-19 mRNA, LNP-s, No Pre serve, 2-Dose Series (Moderna) 10/25/2021,02/16/2021,01/18/2021 HEP A - Hepatitis A (Adult > 18 yrs) 06/07/2018, 12/05/2017 Hepatitis B, 20+ yrs 06/07/2018,01/08/20 18,12/05/2017,06/15,10/27/2013,09/12/2013 Pneumococcal Conjugate Vacci ne, 20-valent ([id number]) 06/22/2023 Pneumococcal Polysaccharide PPV23 (Pneumovax) 01/02/2008 Seasonal [...] as of this encounter Progress Notes * Kathya Sexton, [facility] [employer] Sawyer - 01/08/2024 3:54 PM EDT Patient has been successfully enrolled to the [place] [address] Hypertension Management program and provided with Bluetooth Connected Blood Pressure Cuff to facilitate their participation in remote monitoring. Standard alarm settings have been set as follows: Average BP over 7 days > 140/90 Singular Systolic BP Reading < 90 or > 180 Singular Diastolic BP Reading <50 or > 120 Patient has been advised to take blood pressure daily. Patient has been oriented to remote patient monitoring, assisted with initial device set-up, and provided with instruction and education regarding the program. Patient understands that this monitoring should not be used as a replacement for emergency and/or urgent care. If patient experiences any urgent symptoms, they are aware to call office/network communications engineer provider for additional instructions. In emergency situations, they will report directly to the ED for further evaluation. Referral has been placed to [facility] Pharmacist for participation per protocol. If you would like to customize the alert parameters and/or instructions for this patient, please let me know and we can have them changed. documented in this encounter Plan of Treatment Upcoming Encounters Date Type Department Care Team (Late st Contact Info) Description 01/09/2024 11:30 AM EDT Telemedicine Psychology [facility] [address] [place] [address] Jovita Aquino LCSW [address] [place] [address] 01/24/2024 2:45 PM EDT Office Visit Ophthalmology, [facility] [address] [place] [address] Ramsey Burnett, DO [address] [place] [address] 02/04/2024 10:20 AM EDT Office Visit Family Practice [facility] [address] [place] [address] Gregory Rausch MD [address] [place] [address] 02/13/2024 10:00 AM EDT Home Visit [place], [facility] [address] [place] [address] Jaycee Sorto, RN [address] [place] [address] 02/21/2024 9:00 AM EDT Office Visit Pharmacy, [facility] [address] [facility] [place] [address] Pharmacist1, [facility] 200 [facility] [place] [address] 06/03/2024 9:00 AM EDT Telemedicine Psychiatry, [place] [address] [place] [address] Janice Atwood MD [address] [place] [address] 07/17/2024 9:30 AM EDT Office Visit Cardiology, [facility] [address] [facility] [place] [address] Roberto Carlos Muniz, [address] [place] [address] 11/27/2024 9:40 AM EST Office Visit Nephrology, [facility] [address] [facility] [place] [address] Fidelina Baumann MD 200 [facility] [place] [address] Scheduled Procedures Name Priority Associated Diagnoses Date/Ti [...] visit until score < 10) 12/26/2023 12/25/2023 Albumin/Creatinine Ratio 03/09/2024 023, 12/22/2022, 05/05/2021, Additional history exists HbA1c 03/19/2024 09/18/2023, 11/0 03/2023, 04/09/2023, Additional history exists CKD PHOS USE SMARTSET 26928 06/18/202405/26, 06/16/2023, 06/15/2023, Additional history exists GFR 07/09/2024 01/08/2024, 09/25, 08/02/2023, Additional history exists Diabetic Eye Exam 09/13/2024 09/13/2023, , 09/13/2023, Additional history exists B-12 09/18/2024 09/18/2023, 08/24, 2020, Additional history exists TSH 10/15/2024 10/15/2023, 05/25, 02/13/2023, Additional history exists CKD HGB USE SMARTSET 54565 01/07/202501/07, 01/08/2024, 10/15/2023, Additional history exists COLONOSCOPY-EVERY 3 YRS AGES [...] encounter Medical Devices Implanted Type Area Assistant Credit Manager Device Identifier Shelf Expiration Date Model / Serial / Lot Cath Roselia Single Lumen - [id number] Implanted:Qty : 1 on 03/12/2008 at OR [facility] Left: Chest [employer] *DO NOT USE* 07/25/2012 21-4053-24 / / [id number] Sut Steel 6 M654g - [id number] Implanted:Qty : 1 on 11/01/2010 at OR [facility] N/A: Chest DO NOT USE M654G / / Sut Steel 6 M654g - [id number] Implanted:Qty : 1 on 11/01/2010 at OR [facility] N/A: Chest DO NOT USE M654G / / Valve Tarsha Aortic [id number] - [id number] Implanted:Qty : 1 on 11/01/2010 at OR [facility] N/A: Heart [employer] DANIEL 05/20/2012 2800TFX-25 / / [id number] Mesh Soft [id number] - [id number] Implanted:Qty : 1 on 10/10/2019 by Gigi Hendrickson MD at [place] [facility] [place]/A: Abdomen CR BARD : DAVOL [id number] 05/21/2024 [id number] / / [id number] Lens 22.5 Sn60wf - [id number] - [id number] Implanted:Qty : 1 on 09/15/2020 by Renaldo Cook, Cece Acosta MD at [facility] Right: Eye IVA : SURGICAL [id number] 05/13/2025 SN60 WF.225 / [id number] / [id number] Lens 21.5 Sn60wf - [id number] - [id number] Implanted:Qty : 1 on 12/19/2023 by Ramsey Burnett DO at OR [facility] Left: Eye IVA : SURGICAL 12/03/2024 SN60WF.2 15 / [id number] / documented as of this encounter [...] the patient have Health Care Power of Policy Intern? No Full Code 10/10/2019 8:40 AM 10/10/2019 5:53 PM This order reflects the patients wishes and were consensually agreed upon. Healthcare Agents on File Name Relationship Healthcare Agent Relationshi p Communication Gigi Rose Adult Child Health Care Repr esentative (appointed verbally by patient or by statute hierarchy) Care Teams Furrier Shop Supervisor Relationship Specialty Start Date End Date Gregory Rausch MD [address] [place] [address] PCP - General Family Medicine 02/12/20 documented as of this encounter
--- OUTSIDE RECORDS SUMMARY | 2024-06-05 15:00 | External Medical Summary | Summary of Care ---
Author Name Unknown Organization [facility] Address [address] [place] [address] Phone [phone] Care Team Providers Care Animal Laboratory Technician Name Role Phone Gregory Rausch MD Primary Care Provider [phone] Reason for Visit * Reason Comments Outpatient Testing Encounter Details Date Type Department Care Team (Late st Contact Info) Description 01/08/2024 1:10 PM EDT Laboratory Laboratory, [facility] [address] [place] [address] [facility] [address] [place], [place] [phone] Uncontrolled hypertension Allergies Active Allergy Reactions Criticality Noted [...] daily. 400 g 3 10/02/2023 Active Nystatin 757016 UNIT/GM External Powder (Nystop)Indications:C andidal intertrigo Apply [...] than 7.0% ([facility]) Use as directed. Use 1 transmitter every 90 days E 11.9 1 Each 3 10/18/2023 Active Dexcom G6 SensorIndications:Typ e 2 diabetes mellitus with hemoglobin A1c goal of less than 7.0% ([facility]) Use as directed. Use 1 sensor every 10 days E 11.9 9 Each 3 10/18/2023 Active Gabapentin 100 MG Oral Capsule (Neurontin)Indication s:Polyneuropathy associated with underlying disease ([facility]) TAKE 1 CAPSULE BY MOUTH EVERY DAY [...] eye 09/28/2020 Coronary artery disease invo lving [place] coronary artery of apache heart without angina pectoris 12/16/2019 Last Assessment [...] 12/21/2016 Diabetes mellitus 01/05/2014 12/21/2016 LEYVA RESEARCH OTHER*[id number] 01/05/2014 12/21/2016 Axillary pain 11/03/2013 12/21/2016 Obesity, [...] cath 09/201008/26/2011 12/21/2016 FOLLOWING SURGERY, UNSPECIFI ED ([facility] BSO 08/25/2011) 08/26/2011 12/21/2016 ADVANCE DIRECTIVE INFORMATION 04/17/2011 12/21/2016 Overview: Yes, Patient instructed to provide copy of advance directive for provider to review and to be scanned into Electronic Medical Record ADVANCE DIRECTIVE INFORMATION 03/01/2011 12/21/2016 Overview: Yes, Patient instructed to provide copy of advance directive for provider to review and to be scanned into Electronic Medical Record [facility] V710 Clinical Trial*[id number] 12/22/2010 04/14/2011 S/P aortic valve replacement 12/01/2010 08/26/2011 S/P AORTIC VALVE REPLACEMENT - #25 pericardial Hernandez valve 11/01/2010 06/28/2018 Overview: Aortic valve replacement with #25 pericardial Hernandez valve, model 2800TFX, serial number [id number] (Dr. Walker) [facility] V710 Clinical Trial*[id number] 10/18/2010 11/21/2010 Body mass index (BMI) of [...] 06/07/2018,01/08/20 18,12/05/2017,06/15,10/27/2013,09/12/2013 Pneumococcal Conjugate Vacci ne, 20-valent ([id number]) 06/22/2023 Pneumococcal Polysaccharide PPV23 (Pneumovax) 01/02/2008 Seasonal [...] Description 01/09/2024 11:30 AM EDT Telemedicine Psychology [facility] [address] [place] [address] Jovita Aquino, SHIRT IRONER [address] [place] [address] 01/24/2024 2:45 PM EDT Office Visit Ophthalmology, [facility] 132 [facility] [place] [address] Ramsey Burnett, DO [facility] [place] [address] 02/04/2024 10:20 AM EDT Office Visit Family Practice [facility] 132 [facility] [place] [address] Gregory Rausch MD 132 [place] [address] 02/13/2024 10:00 AM EDT Home Visit Adry at Home, [facility] [address] [facility] [place] [address] Jaycee Sorto RN 132 [place] [address] 02/21/2024 9:00 AM EDT Office Visit Pharmacy, [facility] [address] [place] [address] Pharmacist1, [facility] [address] [place] [address] 06/03/2024 9:00 AM EDT Telemedicine Psychiatry, [place] [address] [place] [address] Janice Atwood MD [address] [place] [address] 07/17/2024 9:30 AM EDT Office Visit Cardiology, [facility] [address] [facility] [place] [address] Roberto Carlos Muniz, 132 [facility] [place] [address] 11/27/2024 9:40 AM EST Office Visit Nephrology, [facility] 200 [facility] [place] [address] Fidelina Baumann MD 200 [facility] [place] [address] Pending Results Name Type Priority Associated Diagnoses Date /Time TSH WITH FREE T4 IF INDICATED Lab Routine Uncontrolled hypertension 01/08/2024 12:22 PM EDT Scheduled Procedures Name Priority Associated [...] Additional history exists CKD PHOS USE SMARTSET 17777 06/18/2024 0901/2023, 06/16/2023, 06/15/2023, Additional history exists Diabetic Eye Exam 09/13/2024 09/13/2023, , 09/13/2023, Additional history exists B-12 09/18/2024 09/18/2023, 08/24, 2020, Additional history exists CKD HGB USE SMARTSET 74566 10/15/202410/15, 07/31/2023, 07/31/2023, Additional history exists TSH [...] this encounter Medical Devices Implanted Type Area Colleter Device Identifier Shelf Expiration Date Model / Serial / Lot Cath Roselia Single Lumen - [id number] Implanted:Qty : 1 on 03/12/2008 at [facility]: [facility] *DO NOT USE* 07/25/2012 21-4053-24 / / [id number] Sut Steel 6 M654g - [id number] Implanted:Qty : 1 on 11/01/2010 at OR [facility] N/A: Chest DO NOT USE M654G / / Sut Steel 6 M654g - [id number] Implanted:Qty : 1 on 11/01/2010 at OR [facility] N/A: Chest DO NOT USE M654G / / Valve Tarsha Aortic [id number] - [id number] Implanted:Qty : 1 on 11/01/2010 at OR [facility] N/A: Heart [employer] DANIEL 05/20/2012 2800TFX-25 / / [id number] Mesh Soft [id number] - [id number] Implanted:Qty : 1 on 10/10/2019 by Gigi Hendrickson MD at [place] [facility] N/A: Abdomen CR BARD : DAVOL [id number] 05/21/2024 [id number] / / [id number] Lens 22.5 Sn60wf - [id number] - [id number] Implanted:Qty : 1 on 09/15/2020 by Renaldo Cook, Cece Acosta MD at OR [facility] Right: Eye IVA : SURGICAL [id number] 05/13/2025 SN60 WF.225 / [id number] / [id number] Lens 21.5 Sn60wf - [id number] - [id number] Implanted:Qty : 1 on 12/19/2023 by Ramsey Burnett DO at OR [facility] Left: Eye IVA : SURGICAL 12/03/2024 SN60WF.2 15 / [id number] / documented as of this encounter Visit Diagnoses Diagnosis Uncontrolled hypertension Unspecified essential hypertension documented in this encounter [...] the patient have Health Care Power of Meat Wrapper? No Full Code 10/10/2019 8:40 AM 10/10/2019 5:53 PM This order reflects the patients wishes and were consensually agreed upon. Healthcare Agents on File Name Relationship Healthcare Agent Relationshi p Communication [facility] Adult Child Health Care Repr esentative (appointed verbally by patient or by statute hierarchy) Care Teams Animal Laboratory Technician Relationship Specialty Start Date End Date Gregory Rausch MD [address] [place] [address] PCP - General Family Medicine 02/12/20 documented as of this encounter
--- OUTSIDE RECORDS SUMMARY | 2024-06-05 15:00 | External Medical Summary ---
Author Name Unknown Address Unknown Organization [id number]:LAB[facility]ATORY [place] [address] [place] [address] Laboratory Report Ordering Provider Test Date Status DINO TAY 01/08/2024 12:22:00 Final Observation Date Value Abnormality Reference (Units ) Status BUN 01/08/2024 12:22:00 11 6-20 (mg/dL) Final Creatinine 01/08/2024 12:22:00 1.0 0.5-1.0 (mg/dL) Final Glomerular filtration rate/1.73 sq M.predicted [Volume Rate/Area] in Serum, Plasma or Blood by Creatinine-based formula (CKD-EPI) 01/08/2024 12:22:00 63 >=60 (mL/min) Final eGFR is calculated based on the CKD-EPI 2020 equation Sodium 01/08/2024 12:22:00 134 Below low normal 135 -146 (mmol/L) Final Potassium 01/08/2024 12:22:00 5.1 3.5-5.1 (m mol/L) Final Cl 01/08/2024 12:22:00 95 Below low normal 98- 107 (mmol/L) Final CO2 01/08/2024 12:22:00 27 22-32 (mmo l/L) Final Anion gap 01/08/2024 12:22:00 12 7-15 (mmol /L) Final Glucose 01/08/2024 12:22:00 218 Above high normal 70 -120 (mg/dL) Final Albumin 01/08/2024 12:22:00 4.0 3.8-5.0 (g /dL) Final AST (Aspartate aminotransferase) 01/08/2024 12:22:00 26 10-35 (U/L) Fin al Result may be falsely elevat ed due to hemolysis. Alk Phos 01/08/2024 12:22:00 105 35-130 (U/ L) Final Bilirubin, Total 01/08/2024 12:22:00 0.4 <=1 .2 (mg/dL) Final Calcium 01/08/2024 12:22:00 10.4 Above high normal 8. 4-10.2 (mg/dL) Final Protein 01/08/2024 12:22:00 7.2 6.0-8.3 (g /dL) Final ALT (Alanine aminotransferase) 01/08/2024 12:22:00 20 10-35 (U/L) Renard bingham Performing Location LAB[facility]ATORY [place] [address] [facility] [address]
--- OUTSIDE RECORDS SUMMARY | 2024-06-05 15:00 | External Medical Summary ---
Author Name Unknown Address Unknown Organization [id number]:LABORATORY [facility] [place] [address] [place] [address] Laboratory Report Ordering Provider Test Date Status DINO TAY 01/08/2024 12:22:00 Final Observation Date Value Abnormality Reference (Units ) Status WBC, Total 01/08/2024 12:22:00 9.14 4.00-10.8 0 (K/uL) Final RBC 01/08/2024 12:22:00 4.66 3.85-5.15 (M/uL) Final Hemoglobin 01/08/2024 12:22:00 12.4 12.0-15.3 (g/dL) Final HCT 01/08/2024 12:22:00 37.0 36.0-45.2 (%) Final MCV 01/08/2024 12:22:00 79.4 81.5-97.5 (fL) Final MCH 01/08/2024 12:22:00 26.6 27.0-34.0 (pg) Final MCHC 01/08/2024 12:22:00 33.5 32.0-36.0 (g/dL) Final RDW 01/08/2024 12:22:00 15.2 11.5-15.5 (%) Final Platelets 01/08/2024 12:22:00 203 140-400 (K /uL) Final MPV 01/08/2024 12:22:00 10.6 6.6-11.1 ( fL) Final Performing Location LABORATORY [facility] [place] [address] [place] [address]
--- OUTSIDE RECORDS SUMMARY | 2024-06-05 15:00 | External Medical Summary ---
Author Name Unknown Address Unknown Organization K01:LABORATORY [facility] - [address] [facility] [place] [address] Laboratory Report Ordering Provider Test Date Status DINO TAY 01/08/2024 12:29:29 Final Normal: <30 mg/g creatinine< br/>High: 30-300 mg/g creatinine
Very High: >300 mg/g creatinine
Nephrotic: >2200 mg/g creatinine Observation Date Value Abnormality Reference (Units ) Status Albumin, Urine 01/08/2024 12:29:29 5.53 (mg/dL) Final Creatinine, Urine 01/08/2024 12:29:29 58 (mg/dL) Final Albumin/Creatinine [Mass Ratio] in Urine 01/08/2024 12:29:29 95 Above high normal <30 (mg/g Creat) Final Performing Location LABORATORY [facility] - [address] [place] [address]
--- OUTSIDE RECORDS SUMMARY | 2024-06-05 15:00 | External Medical Summary ---
Author Name Unknown Address Unknown Organization K0G:LAB[facility]ATORY [place] [address] [place] [address] Laboratory Report Ordering Provider Test Date Status DINO TAY 01/08/2024 12:22:00 Final Observation Date Value Abnormality Reference (Units ) Status SYNC LEUKOCYTES IN BLOOD BY AUTOMATED COUNT 01/08/2024 12:22:00 9.14 4.00-10.80 (K/uL) Final Segs 01/08/2024 12:22:00 46.2 40.0-75.0 (%) Final Lymphs % 01/08/2024 12:22:00 43.4 Above high normal 18.0-42.0 (%) Final Monos 01/08/2024 12:22:00 6.9 1.0-11.0 (%) Final Eosinophils 01/08/2024 12:22:00 3.1 0.0-6.0 (%) Final Basos 01/08/2024 12:22:00 0.4 0.0-2.0 (%) Final Absolute Segs 01/08/2024 12:22:00 4.22 1.80-7.70 (K/uL) Final Lymphs, absolute 01/08/2024 12:22:00 3.97 1.00-4.80 (K/ul) Final Monos, Abs 01/08/2024 12:22:00 0.63 0.00-1.10 (K/uL) Final Eos, Abs 01/08/2024 12:22:00 0.28 0.00-0.70 (K/uL) Final Basos, Abs 01/08/2024 12:22:00 0.04 0.00-0.20 (K/uL) Final Performing Location LABORATORY [facility] [place] [address] - [address] [place] [address]
--- OUTSIDE RECORDS SUMMARY | 2024-06-05 15:00 | External Medical Summary ---
Author Name Unknown Address Unknown Organization K01:LABORATORY [facility] - [address] [place] [address] Laboratory Report Ordering Provider Test Date Status DINO TAY 01/08/2024 12:22:00 Final Observation Date Value Abnormality Reference (Units ) Status TSH 01/08/2024 12:22:00 1.80 0.27-4.20 (uIU/mL) Final Performing Location LABORATORY [facility] - [address] [place] [address]
--- OUTSIDE RECORDS SUMMARY | 2024-06-05 15:00 | External Medical Summary ---
Author Name Unknown Address Unknown Organization [facility] [address] [place] [address] Laboratory Report Ordering Provider Test Date Status DINO TAY 01/08/2024 12:29:29 Final Observation Date Value Abnormality Reference (Units ) Status Color of Urine by Auto 01/08/2024 12:29:29 Yellow Light Yellow, Yellow, Dark Yellow Final Clarity, Urine 01/08/2024 12:29:29 Clear Clear Final Glucose [Mass/volume] in Urine by Automated test strip 01/08/2024 12:29:29 100 Abnormal Negative (mg/dL) Final Bilirubin.total [Presence] in Urine by Automated test strip 01/08/2024 12:29:29 Negative Negative Final Ketones [Mass/volume] in Urine by Automated test strip 01/08/2024 12:29:29 Negative Negative (mg/dL) Final Specific gravity, Urine 01/08/2024 12:29:29 1.015 1.003-1.030 Final Hemoglobin [Presence] in Urine by Automated test strip 01/08/2024 12:29:29 Trace Abnormal Negative Final pH, Urine 01/08/2024 12:29:29 6.5 5.0-7.5 (Units) Final Protein [Mass/volume] in Urine by Automated test strip 01/08/2024 12:29:29 Negative Negative (mg/dL) Final Urobilinogen [Mass/volume] in Urine by Automated test strip 01/08/2024 12:29:29 0.2 0.2, 1.0 (mg/dL) Final Nitrite [Presence] in Urine by Automated test strip 01/08/2024 12:29:29 Negative Negative Final Leukocyte esterase [Presence] in Urine by Automated test strip 01/08/2024 12:29:29 Small Abnormal Negative Final RBC, Urine 01/08/2024 12:29:29 0-2 0-2 (/HPF) Final WBC, Urine 01/08/2024 12:29:29 30-49 Abnormal 0-2 (/HPF) Final Bacteria [#/area] in Urine sediment by Microscopy high power field 01/08/2024 12:29:29 >200 Abnormal 0-25 (/HPF) Final Performing Location LABORATORY [place] [address] - [address] [facility] [address]
--- OUTSIDE RECORDS SUMMARY | 2024-06-05 15:01 | External Medical Summary | Summary of Care ---
Author Name Unknown Organization [facility] Address [address] [place] [address] Phone [phone] Care Team Providers Care Workers Compensation Legal Secretary Name Role Phone Gregory Rausch MD Primary Care Provider [phone] Reason for Visit * Reason Comments Post Op Cataract Surgery Encounter Details Date Type Department Care Team (Late st Contact Info) Description 01/03/2024 9:00 AM EDT Office Visit Ophthalmology, [facility] [address] [facility] [place] [id number] Ramsey Burnett, DO [address] [place] [address] Pseudophakia* Allergies Active Allergy Reactions Criticality Noted Date Comments Adhesive Tape 07/02/2017 Can tolerate band-aids Glycerin Other (Please comment) 03/12/2008 Topical agents with glycein-burning & itching Lactose 12/09/2014 Dairy - gas Lisinopril Cough 01/21/2010 Monosodium Glutamate Edema Other 03/12/2008 Hands and feet Penicillins Rash 11/14/2007 documented as of this encounter (statuses as of 01/03/2024) Medications Medication Sig Dispensed Refills Start Date [...] hypoglycemia E11.9 100 Tab 3 07/06/2021 Active Tira WirelessTouch Verio w/Device Kit Use up to 4 [...] once daily. 400 g 10/02/2023 Active Nystatin 237264 UNIT/GM External Powder (Nystop)Indications:C andidal intertrigo Apply [...] before bedtime. 2.5 mL 1 01/03/2024 Active documented as of this encounter (statuses as of 01/03/2024) Active Problems Problem Noted Date Diagnosed Date [...] eye 09/28/2020 Coronary artery disease invo lving [place] coronary artery of [place] heart without angina pectoris 12/16/2019 Last Assessment [...] as of this encounter (statuses as of 01/03/2024) Resolved Problems Problem Noted Date Diagnosed Date [...] 12/21/2016 Diabetes mellitus 01/05/2014 12/21/2016 LEYVA RESEARCH OTHER*[id number] 01/05/2014 12/21/2016 Axillary pain 11/03/2013 12/21/2016 Obesity, [...] 09/201008/26/2011 12/21/2016 FOLLOWING SURGERY, UNSPECIFI ED ([facility] 08/25/2011) 08/26/2011 12/21/2016 ADVANCE [...] Medical Record [facility] V710 Clinical Trial*[id number] 12/22/2010 04/14/2011 S/P aortic valve replacement 12/01/2010 08/26/2011 S/P AORTIC VALVE REPLACEMENT - #25 pericardial Mc valve 11/01/2010 06/28/2018 Overview: Aortic valve replacement with #25 pericardial Mc valve, model 2800TFX, serial number [id number] (Dr. Walker) [facility] V710 Clinical Trial*[id number] 10/18/2010 11/21/2010 Body mass index (BMI) of [...] as of this encounter (statuses as of 01/03/2024) Immunizations Name Administration Dates Next Due COVID-19 mRNA, LNP-s, No Pre serve, 2-Dose Series (Moderna) 10/25/2021,02/16/2021,01/18/2021 HEP A - Hepatitis A (Adult > 18 yrs) 06/07/2018, 12/05/2017 Hepatitis B, 20+ yrs 06/07/2018,01/08/20 18,12/05/2017,06/15,10/27/2013,09/12/2013 Pneumococcal Conjugate Vacci ne, 20-valent ([id number]) 06/22/2023 Pneumococcal Polysaccharide PPV23 (Pneumovax) 01/02/2008 Seasonal [...] of this encounter Progress Notes * Ramsey Burnett DO - 01/03/2024 9:00 AM EDT 01/03/24 [facility] Ophthalmology Post-operative Clinic Note HPI: Jovita Irina Rose is a 63 year old pt who presents to the eye clinic today for 1 week post-op CE PCIOL OS (eLx TCC SN60WF 21.50 12/19/2023) Did not show for 1 day post op Past Ocular History: Mild NPDR OU DME and pseudophakia CME OD VAsc: 20/40 IOP: 17 mmHg LL: Normal Conjunctiva: Normal Cornea: CCI and paracentesis clarisa negative AC: Rare c/f Iris: dilation Lens: PCIOL centered, posterior capsular folds Vitreous: PVD Optic nerve: Normal Macula: Normal Vessels: Normal Periphery: Normal A/P: 1 week post op CE PCIOL OS (Lex TCC SN60WF 21.50 12/19/2023) Looks good Stop activity restrictions Stop shield at nighttime Reviewed eye drops: D/c Vigamox QID Prednisolone QID Diclofenac QID Undilated OCT macula OS at next visit RTC 1 month or sooner prn. Ramsey Burnett DO 01/03/24 documented in this encounter Nursing Notes * Lakeshia Montero COA - 01/03/2024 9:21 AM EDT Jovita Rose presents for p/o check. 1 week post-op ECCE w/IOL insertion Surgical eye LEFT EYE Patient denies complaints Current Ophthalmic Medications: Pred Forte and Ofloxacin 1gtt 4 times daily in surgical eye Are you taking the drops as directed? Yes documented in this encounter Plan of Treatment Upcoming Encounters Date Type Department Care Team (Late st Contact Info) Description 01/08/2024 9:20 AM EDT Office Visit Nephrology, [facility] [address] [place] [address] Fidelina Baumann MD [address] [facility] [place] [address] 01/08/2024 11:30 AM EDT Office Visit Cardiology, [facility] [address] [place] [address] Roberto Carlos Muniz DO [address] [place] [address] 01/09/2024 11:30 AM EDT Telemedicine Psychology [facility] [address] [facility] [place] [address] Jovita Aquino, ROTARY DERRICK OPERATOR [address] [place] [address] 01/24/2024 2:45 PM EDT Office Visit Ophthalmology, [facility] [address] [facility] [place] [address] Ramsey Burnett, DO [address] [facility] [place] [address] 02/04/2024 10:20 AM EDT Office Visit Family Practice [facility] [address] [facility] [place] [address] Gregory Rausch MD [address] [place] [address] 02/13/2024 10:00 AM EDT Home Visit [facility] at [facility] [address] [facility] [place] [address] Jaycee Sorto, RN 132 [facility] [place] [address] 02/21/2024 9:00 AM EDT Office Visit Pharmacy, [facility] [address] [facility] [place] [address] Pharmacist1, [facility] 200 [facility] [place] [address] 06/03/2024 9:00 AM EDT Telemedicine Psychiatry, [place] [address] [place] [address] Janice Atwood MD [address] [place], [place] [id number] Scheduled Procedures Name Priority Associated Diagnoses Date/Ti [...] Additional history exists CKD PHOS USE SMARTSET 44649 06/18/2024 0901/2023, 06/16/2023, 06/15/2023, Additional history exists Diabetic Eye Exam 09/13/2024 09/13/2023, , 09/13/2023, Additional history exists B-12 09/18/2024 09/18/2023, 08/24, 2020, Additional history exists CKD HGB USE SMARTSET 23519 10/15/202410/15, 07/31/2023, 07/31/2023, Additional history exists TSH [...] this encounter Medical Devices Implanted Type Area Rn Quality Device Identifier Shelf Expiration Date Model / Serial / Lot Cath Roselia Single Lumen - [id number] Implanted:Qty : 1 on 03/12/2008 at OR [facility] Left: Chest [facility] *DO NOT USE* 07/25/2012 21-4053-24 / / [id number] Sut Steel 6 M654g - [id number] Implanted:Qty : 1 on 11/01/2010 at OR [facility] N/A: Chest DO NOT USE M654G / / Sut Steel 6 M654g - [id number] Implanted:Qty : 1 on 11/01/2010 at OR [facility] N/A: Chest DO NOT USE M654G / / Valve Tarsha Aortic [id number] - [id number] Implanted:Qty : 1 on 11/01/2010 at OR [facility] N/A: Heart MC Sat[employer]CIENCES DANIEL 05/20/2012 2800TFX-25 / / [id number] Mesh Soft [id number] - [id number] Implanted:Qty : 1 on 10/10/2019 by Gigi Hendrickson MD at OR [facility] N/A: Abdomen CR BARD : DAVOL [id number] 05/21/2024 [id number] / / [id number] Lens 22.5 Sn60wf - [id number] - [id number] Implanted:Qty : 1 on 09/15/2020 by Renaldo Cook, Cece Acosta MD at OR [facility] Right: Eye IVA : SURGICAL [id number] 05/13/2025 SN60 WF.225 / [id number] / [id number] Lens 21.5 Sn60wf - [id number] - [id number] Implanted:Qty : 1 on 12/19/2023 by Ramsey Burnett DO at OR [facility] Left: Eye IVA : SURGICAL 12/03/2024 SN60WF.2 15 / [id number] / documented as of this encounter Visit Diagnoses Diagnosis Pseudophakia- Primary Lens replaced by other means documented in this encounter Advance Directives Latest [...] the patient have Health Care Power of Personal Health Coach? No Full Code 10/10/2019 8:40 AM 10/10/2019 5:53 PM This order reflects the patients wishes and were consensually agreed upon. Healthcare Agents on File Name Relationship Healthcare Agent Relationshi p Communication Gigi Rose Adult Child Health Care Repr esentative (appointed verbally by patient or by statute hierarchy) Care Teams Workers Compensation Legal Secretary Relationship Specialty Start Date End Date Gregory Rausch MD [address] [place] [address] PCP - General Family Medicine 02/12/20 documented as of this encounter
--- OUTSIDE RECORDS SUMMARY | 2024-06-05 15:01 | External Medical Summary | Summary of Care ---
Author Name Unknown Organization [facility] Address [address] [place] [address] Phone [phone] Care Team Providers Care Metallurgical Or Materials Technician Name Role Phone Gregory Rausch MD Primary Care Provider [phone] Reason for Visit * Reason Comments [facility]: Maintenance Encounter Details Date Type Department Care Team (Late st Contact Info) Description 01/02/2024 12:30 PM EDT Home Visit [facility] Home, [facility] [address] [facility] [place] [address] Jaycee Sorto RN 132 [facility] [place] [address] Type 2 diabetes mellitus with stage 3a chronic kidney disease, with long-term current use of insulin ([facility])* Allergies Active Allergy Reactions Criticality Noted Date Comments Adhesive Tape 07/02/2017 Can tolerate band-aids Glycerin Other (Please comment) 03/12/2008 Topical agents with glycein-burning & itching Lactose 12/09/2014 Dairy - gas Lisinopril Cough 01/21/2010 Monosodium Glutamate Edema Other 03/12/2008 Hands and feet Penicillins Rash 11/14/2007 documented as of this encounter (statuses as of 01/07/2024) Medications Medication Sig Dispensed Refills Start Date [...] hypoglycemia E11.9 100 Tab 3 1 Active WeLikeTouch Verio w/Device Kit Use up to 4 [...] ER 10 MEQ Oral Tablet Extended ReleaseIndications:Ac [place] on chronic heart failure with preserved ejection [...] daily. 400 g 3 4 Active Nystatin 363052 UNIT/GM External Powder (Nystop)Indications:C andidal intertrigo Apply [...] ([facility]),Type 2 diabetes mellitus with diabetic mononeuropathy, with long-term current use of insulin ([facility]),Type 2 diabetes mellitus with both eyes affected by mild nonproliferative retinopathy and macular edema, with long-term current use of insulin ([facility]),Type 2 diabetes mellitus with stage 3a chronic kidney disease, with long-term current use of insulin ([facility]) Inject 2 mg under the skin once a week. 9 mL 3 4 Active Additional Information Patient taking differently:2 mg Subcutaneous QWEEK,Indications: weekly on fridays, Reported on 11/26/2023 traZODone HCl 100 MG Oral Tablet (Desyrel) Take 1 Tablet by mouth at bedtime. 0 Active Dexcom G6 TransmitterIndication s:Type 2 diabetes mellitus with hemoglobin A1c goal of less than 7.0% ([facility]) Use as directed. Use 1 transmitter every 90 days E 11.9 1 Each 3 4 Active Dexcom G6 SensorIndications:Typ e 2 diabetes mellitus with hemoglobin A1c goal of less than 7.0% ([facility]) Use as directed. Use 1 sensor every 10 days E 11.9 9 Each 3 4 Active Gabapentin 100 MG Oral Capsule (Neurontin)Indication s:Polyneuropathy associated with underlying disease ([facility]) TAKE 1 CAPSULE BY MOUTH EVERY [...] by mouth in the morning. 0 Active Multiple Vitamins-Minerals ([facility] SPECTRAVITE ADVANCED) TABS Take 1 Tab by mouth daily. 0 01/02/20 24 Discontinu ed(Medicat ion List Clean Up) documented as of this encounter (statuses as of 01/07/2024) Active Problems Problem Noted Date Diagnosed Date [...] eye 09/28/2020 Coronary artery disease invo lving yuhaaviatam coronary artery of yuhaaviatam heart without angina pectoris 12/16/2019 Last Assessment [...] as of this encounter (statuses as of 01/07/2024) Resolved Problems Problem Noted Date Diagnosed Date [...] 12/21/2016 Diabetes mellitus 01/05/2014 12/21/2016 LEYVA RESEARCH OTHER*[id number] 01/05/2014 12/21/2016 Axillary pain 11/03/2013 12/21/2016 Obesity, [...] to be scanned into Electronic Medical Record [facility] V710 Clinical Trial*[id number] 12/22/2010 04/14/2011 S/P aortic valve replacement 12/01/2010 08/26/2011 S/P AORTIC VALVE REPLACEMENT - #25 pericardial Hernandez valve 11/01/2010 06/28/2018 Overview: Aortic valve replacement with #25 pericardial Hernandez valve, model 2800TFX, serial number [id number] (Dr. Walker) [facility] V710 Clinical Trial*[id number] 10/18/2010 11/21/2010 Body mass index (BMI) of [...] as of this encounter (statuses as of 01/07/2024) Immunizations Name Administration Dates Next Due COVID-19 mRNA, LNP-s, No Pre serve, 2-Dose Series (Moderna) 10/25/2021,02/16/2021,01/18/2021 HEP A - Hepatitis A (Adult > 18 yrs) 06/07/2018, 12/05/2017 Hepatitis B, 20+ yrs 06/07/2018,01/08/20 18,12/05/2017,06/15,10/27/2013,09/12/2013 Pneumococcal Conjugate Vacci ne, 20-valent ([id number]) 06/22/2023 Pneumococcal Polysaccharide PPV23 (Pneumovax) 01/02/2008 Seasonal [...] Sign Reading Time Taken Comments Blood Pressure 132/62 01/02/2024 12:21 PM EDT Pulse 88 01/02/2024 12:21 PM EDT Temperature 36.8 C (98.2 F) 01/02/2024 12:21 PM E DT Respiratory Rate 18 01/02/2024 12:21 PM EDT Oxygen Saturation 97% 01/02/2024 12:21 PM EDT Inhaled Oxygen Concentration - - Weight 70 kg (154 lb 6.4 oz) 01/02/2024 12:21 PM EDT Height - - Body Mass Index 31.17 12/19/2023 12:36 PM EDT documented in this [...] of this encounter Progress Notes * Jaycee Sorto RN - 01/02/2024 10:56 AM EDT Images from the original note were not included. [facility] Physical Therapy Coordinator Visit Date: 01/02/2024 Time: 10:57 AM Name: Jovita Rose : 1960 Current Concerns: Pt seen for return RNCM visit Had messaged [facility] to get Dexcom teaching done and it was scheduled and then pt canceled Rescheduled for 02/20 Also getting omnipod insulin pump at that time Blood sugars have been 200's - 450's Encouraged to keep f/u with [facility] Started Fidaxomicin for c-diff on 12/23 States it made a difference almost immediately No longer having loose stool - more formed and not as frequent- does still have about 5 a day, but not as severed and more formed Appetite is good 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 Cardiovascular: Rate and Rhythm: Normal rate and regular rhythm. Pulses: Normal pulses. Heart sounds: Normal heart sounds. Pulmonary: Breath sounds: Wheezing (RLL, RML) present. Abdominal: General: Bowel sounds are normal. There is distension (chronic, no change). Palpations: Abdomen is soft. Skin: General: Skin is warm and dry. Neurological: Mental Status: She is alert and oriented to person, place, and time. Problems/Symptoms: Review of Systems Constitutional: Negative. HENT: Negative. Eyes: Negative. Respiratory: Negative. Cardiovascular: Negative. Gastrointestinal: Positive for abdominal distention (chronic, at baseline, soft). Genitourinary: Negative. Musculoskeletal: Positive for arthralgias. Psychiatric/Behavioral: Negative. Medication Reconciliation: (See medication list) Does patient take medications as ordered: Yes Patient Well Being: PHQ2/9: No questionnaires available. No change in living situation Denies falls [facility]-10 Completed this Visit: No. Routine visit Advanced Care Planning: POLST. Reinforcement/Education: Educated on [...] as much as possible Daily wts via [facility] Has director of casework services Keep all appts as scheduled [facility] for SN and PT Home Interventions Provided: Home Intervention: Other; eval;` Reinforced current Plan of Care, including self-management and medication regimen Patient's 'Red Flags': Wt gain of 3 lbs in 24 hrs or 5 lbs in one week Increase in LE edema Increased SOB Patient Needs to Remember: Call [facility] at with any new or worsening health concerns or problems, red flag symptoms. Referrals Needed: Other none Follow Up: Is there cellular connectivity/connectivity in the home? Yes Does the patient have internet in the home? Yes Patient encouraged to call the intake phone number for all urgent but not emergent issues. Is the patient new to [facility] within the last 30 days? No, Assess appropriateness for upcoming telehealth visits. Cancel telehealth visits & schedule home visit with care sales team leader(s)as indicated. Provider is in agreement with Plan of Care: Yes Scheduled to follow up with patient in 3 weeks with CHW and 3 weeks after with RNCM. Jaycee Sorto RN 01/02/2024 10:57 AM documented in this encounter Plan of Treatment Upcoming Encounters Date Type Department Care Team (Late st Contact Info) Description 01/08/2024 9:20 AM EDT Office [place] [address] Fidelina Baumann MD [address] [facility] [place] [address] 01/08/2024 11:30 AM EDT Office Visit Cardiology, [facility] [address] [facility] [place] [address] Roberto Carlos Muniz, DO [address] [place] [address] 01/09/2024 11:30 AM EDT Telemedicine Psychology [facility] [address] [facility] [place] [address] Jovita Aquino, REAL ESTATE DEVELOPER [address] [place] [address] 01/24/2024 2:45 PM EDT Office Visit Ophthalmology, [facility] [address] [facility] [place] [address] Ramsey Burnett, DO [address] [facility] [place] [address] 02/04/2024 10:20 AM EDT Office Visit Family Practice [facility] [address] [facility] [place] [address] Gregory Rausch MD [address] [place] [address] 02/13/2024 10:00 AM EDT [facility] Visit [facility] [address] [facility] [place] [place] [address] Jaycee Sorto, RN [address] [facility] [place] [address] 02/21/2024 9:00 AM EDT Office Visit Pharmacy, [facility] [address] [facility] [address] [place] [address] Pharmacist1, [facility] [address] [facility] [place] [address] 06/03/2024 9:00 AM EDT Telemedicine Psychiatry, [place] [address] [place] [address] Janice Atwood MD [address] [place] [address] Scheduled Procedures Name Priority Associated Diagnoses Date/Ti [...] Additional history exists CKD PHOS USE SMARTSET 94473 06/18/2024 09/2 01/2023, 06/16/2023, 06/15/2023, Additional history exists Diabetic Eye Exam 09/13/2024 09/13/2023, , 09/13/2023, Additional history exists B-12 09/18/2024 09/18/2023, 08/24, 2020, Additional history exists CKD HGB USE SMARTSET 67586 10/15/202410/15, 07/31/2023, 07/31/2023, Additional history exists TSH [...] this encounter Medical Devices Implanted Type Area Light Industrial Device Identifier Shelf Expiration Date Model / Serial / Lot Cath Roselia Single Lumen - [id number] Implanted:Qty : 1 on 03/12/2008 at OR [facility] Left: Chest [facility] *DO NOT USE* 07/25/2012 21-4053-24 / / [id number] Sut Steel 6 M654g - [id number] Implanted:Qty : 1 on 11/01/2010 at OR [facility] N/A: Chest DO NOT USE M654G / / Sut Steel 6 M654g - [id number] Implanted:Qty : 1 on 11/01/2010 at OR [facility] N/A: Chest DO NOT USE M654G / / Valve Tarsha Aortic [id number] - [id number] Implanted:Qty : 1 on 11/01/2010 at OR [facility] N/A: Heart [employer] DANIEL 05/20/2012 2800TFX-25 / / [id number] Mesh Soft [id number] - [id number] Implanted:Qty : 1 on 10/10/2019 by Gigi Hendrickson MD at OR [facility] N/A: Abdomen CR BARD : DAVOL [id number] 05/21/2024 [id number] / / [id number] Lens 22.5 Sn60wf - [id number] - [id number] Implanted:Qty : 1 on 09/15/2020 by Renaldo Cook, Cece Acosta MD at OR [facility] Right: Eye IVA : SURGICAL [id number] 05/13/2025 SN60 WF.225 / [id number] / [id number] Lens 21.5 Sn60wf - [id number] - [id number] Implanted:Qty : 1 on 12/19/2023 by Ramsey Burnett DO at OR [facility] Left: Eye IVA : SURGICAL 12/03/2024 SN60WF.2 15 / [id number] / documented as of this encounter Visit Diagnoses Diagnosis Type 2 diabetes mellitus with stage 3a chronic kidney disease, with long-term current use of insulin (HCC)- Primary documented in this encounter Advance [...] the patient have Health Care Power of Gre Instructor? No Full Code 10/10/2019 8:40 AM 10/10/2019 5:53 PM This order reflects the patients wishes and were consensually agreed upon. Healthcare Agents on File Name Relationship Healthcare Agent Relationshi p Communication Gigi Rose Adult Child Health Care Repr esentative (appointed verbally by patient or by statute hierarchy) Care Teams Metallurgical Or Materials Technician Relationship Specialty Start Date End Date Gregory Rausch MD [address] [place] [address] PCP - General Family Medicine 02/12/20 documented as of this encounter
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
--- OUTSIDE RECORDS SUMMARY | 2024-06-05 15:01 | External Medical Summary | Summary of Care ---
Author Name Unknown Organization [facility] Address [address] [place] [address] Phone [phone] Care Team Providers Care Ballet Teacher Name Role Phone Gregory Rausch MD Primary Care Provider [phone] Reason for Visit * Reason Comments Psychological Evaluation * - Authorized Specialty Diagnoses / Procedures Referred By Bruce wasserman Referred To Contact Referral ID Status Reason Start Date Expiration Date V isits Requested Visits Authorized [id number] Authorized 10/25/2023 10/23/2024 999 [id number] Encounter Details Date Type Department Care Team (Late st Contact Info) Description 12/25/2023 12:30 PM EDT [facility]icine [facility] [place] [address] Jovita Aquino, [facility] [address] [place] [address] Anxiety disorder, unspecified type*; Adjustment disorder with depressed mood Allergies Active Allergy Reactions Criticality Noted Date Comments Adhesive Tape 07/02/2017 Can tolerate band-aids Glycerin Other (Please comment) 03/12/2008 Topical agents with glycein-burning & itching Lactose 12/09/2014 Dairy - gas Lisinopril Cough 01/21/2010 Monosodium Glutamate Edema Other 03/12/2008 Hands and feet Penicillins Rash 11/14/2007 documented as of this encounter (statuses as of 01/01/2024) Medications Medication Sig Dispensed Refills Start Date [...] use of insulin ([facility]) Inject 30 Units under the [...] current use of insulin ([facility]) Use with insulin 4 times daily 400 Each 3 07/31/2023 Active Gaviscon 80-14.2 MG Oral Tablet Chewable (Alum Hydroxide-Mag Trisilicate) Take by mouth as needed. 0 Active Atorvastatin Calcium 40 MG Oral Tablet (Lipitor)Indications: Heart failure, systolic, due to idiopathic cardiomyopathy ([facility]),S/P aortic valve replacement,HTN, goal below [...] daily. 400 g 3 10/02/2023 Active Nystatin 922819 UNIT/GM External Powder (Nystop)Indications:C andidal intertrigo Apply [...] ([facility]),Type 2 diabetes mellitus with diabetic mononeuropathy, with long-term current use of insulin ([facility]),Type 2 diabetes mellitus with both eyes affected by mild nonproliferative retinopathy and macular edema, with long-term current use of insulin ([facility]),Type 2 diabetes mellitus with stage 3a chronic kidney disease, with long-term current use of insulin ([facility]) Inject 2 mg under the [...] less than 7.0% ([facility]) Use as directed. Use 1 transmitter every 90 days E 11.9 1 Each 3 10/18/2023 Active Dexcom G6 SensorIndications:Typ e 2 diabetes mellitus with hemoglobin A1c goal of less than 7.0% ([facility]) Use as directed. Use 1 sensor every 10 days E 11.9 9 Each 3 10/18/2023 Active Gabapentin 100 MG Oral Capsule (Neurontin)Indication s:Polyneuropathy associated with underlying disease ([facility]) TAKE 1 CAPSULE BY MOUTH [...] for 10 days. 20 Tablet 0 12/21/2023 12/31/19 24 documented as of this encounter (statuses as of 01/01/2024) Active Problems Problem Noted Date Diagnosed Date [...] as of this encounter (statuses as of 01/01/2024) Resolved Problems Problem Noted Date Diagnosed Date [...] 12/21/2016 Diabetes mellitus 01/05/2014 12/21/2016 LEYVA RESEARCH OTHER*[id number] 01/05/2014 12/21/2016 Axillary pain 11/03/2013 12/21/2016 Obesity, [...] 12/21/2016 FOLLOWING SURGERY, UNSPECIFI ED ([facility] 08/25/2011) 08/26/2011 12/21/2016 ADVANCE DIRECTIVE INFORMATION 04/17/2011 12/21/2016 Overview: Yes, Patient instructed to provide copy of advance directive for provider to review and to be scanned into Electronic Medical Record ADVANCE DIRECTIVE INFORMATION 03/01/2011 12/21/2016 Overview: Yes, Patient instructed to provide copy of advance directive for provider to review and to be scanned into Electronic Medical Record [facility] V710 Clinical Trial*[id number] 12/22/2010 04/14/2011 S/P aortic valve replacement 12/01/2010 08/26/2011 S/P AORTIC VALVE REPLACEMENT - #25 pericardial Mc valve 11/01/2010 06/28/2018 Overview: Aortic valve replacement with #25 pericardial Mc valve, model 2800TFX, serial number [id number] (Dr. Walker) [facility] V710 Clinical Trial*[id number] 10/18/2010 11/21/2010 Body mass index (BMI) of [...] as of this encounter (statuses as of 01/01/2024) Immunizations Name Administration Dates Next Due COVID-19 mRNA, LNP-s, No Pre serve, 2-Dose Series (Moderna) 10/25/2021,02/16/2021,01/18/2021 HEP A - Hepatitis A (Adult > 18 yrs) 06/07/2018, 12/05/2017 Hepatitis B, 20+ yrs 06/07/2018,01/08/20 18,12/05/2017,06/15,10/27/2013,09/12/2013 Pneumococcal Conjugate Vacci ne, 20-valent ([id number]) 06/22/2023 Pneumococcal Polysaccharide PPV23 (Pneumovax) 01/02/2008 Seasonal [...] EDT Primary Care Behavioral Health Evaluation [facility] [address] [facility] [place] [address] Patient location: HOME. I was in a hospital or clinic location. After connecting through televideo,patient was verified with two unique identifiers. Patient (or authorized legal hr representative) was then informed that this was [...] of . Primary language of patient was Cymraes. Jovita Rose arrived on time for her [...] will go out with Waiver aide and occasionally alone when she has togo and get something she needs at the store. She also reports ongoing and excessive worry and relates an experience she had when daughter was 2 years old that influenced her thinking the world is a dangerous place and anything could happen. Jovita also reports excessive worry about various and different things. She reports hearing her apartment building was going to be sold. When she follows up and hears there are no plans she reports she still worries because "it could happen". When she does go out she reports feeling everything is closing in on her and feels uncomfortable. Jovita's way of managing her anxiety is to withdrawal, shut down, retreat and not talk with anyone. Her aide observes this behavior and reports she will come visit Jovita and when Jovita feels like this she will not talk with her during the visit. Symptoms: little interest or pleasure in doing things, feeling down depressed or hopeless, sleep difficulties. Poor appetite, feeling bad about self, trouble concentrating, feeling nervous, not beingable to control worry, worrying too much different things, trouble relaxing. Onset: symptoms have occurred with varying intensity in adulthood but recently increased due to changes in health. Duration: with varying intensity in adult life but recently worse with changes in health [...] Outpatient Treatment: - Used to go to [place] for medication management through psychiatry/[facility] and also received therapy-saw Steven- , when living in [facility]- Went to Dr Jong Welch, Psychiatrist Inpatient [...] Fair Additional community service involvement: Other - Wavier, aide 35 hours a week Evangelical/Spiritual Orientation: Mandaen Mental Status Evaluation: Appearance: Well groomed, casually [...] is currently prescribed Duloxetine, Trazodone, Melatonin for depression, anxiety and sleep respectively. Patient is seeking therapy services for anxiety and has identified therapy goals of being able to get out of house, enjoy self and decrease excessive worry. Jovita reporting history of excessive worry, difficulty going out of home alone, feeling of depression or being overwhelmed with times of shutting down, retreating and withdrawing. She reports sleep and appetite disturbance, feeling tired with little energy, feeling bad about self and trouble concentrating. She reports some symptoms have waxed and waned throughout adulthood but they have increased since recent changes in health with long hospitalization. She has support of her children who maintain contact, has a Waiver aide who provides 35 hours of care giving. Jovita is interested in short term counseling. A diagnosis of Anxiety disorder, unspecified and Adjustment disorder with depressed mood will also be given. Will continue to monitor as Joivta and Lorenza work together. Relevant Stressors: current stressors include: health Diagnosis: Adjustment Disorder with mixed anxiety and depression. Anxiety Disorder, Unspecified. Plan: Therapy: Patient will receive a brief course of behavioral health treatment with [facility]. Community Resources:35 hours of Waiver services, blended case reviewer and Peer Support person. Medication Management: Psychiatry at [facility] Return in:2 weeks Scheduling Preference for Appointments: Video every two weeks. Adult [facility] Therapy Treatment Plan Treatment plan was developed [...] copy of treatment plan: Yes, sent via [employer] Patient's strengths and facilitating factors to care: [...] ED, hotlines): Suicide and Crisis Lifeline - 988 and [facility] Crisis Contact [phone] Estimated frequency of treatment Estimated duration Estimated [...] and depression by 50% by review. Other: Pepperll receive psycho education regarding anxiety and be [...] clinical assessment: PHQ-9 Adult Data ANIVAL-7 Data [place] Suicide Screen Data Discharge Discussed with patient: [...] PM EDT Home Visit [facility] at Home, [facility] [address] [place] [address] Jaycee Sorto, RN [address] [place] [address] 01/03/2024 9:00 AM EDT [facility] [place] [address] Ramsey Burnett, DO [address] [facility] [place] [address] 01/08/2024 9:20 AM EDT Office Visit Nephrology, [facility] [address] [facility] [place] [address] Fidelina Baumann MD [address] [place] [address] 01/08/2024 11:30 AM EDT Office Visit Cardiology, [facility] [address] [facility] [place] [address] Roberto Carlos Muniz, DO [address] [place] [address] 01/09/2024 11:30 AM EDT Telemedicine Psychology [facility] [address] [facility] [place] [address] Jovita Aquino, [employer] [address] [place] [address] 01/24/2024 2:45 PM EDT Office Visit Ophthalmology, [facility] [address] [place] [address] Ramsey Burnett, DO [address] [facility] [place] [address] 02/04/2024 10:20 AM EDT Office Visit Family Practice [facility] [address] [place] [address] Gregory Rausch MD [address] [place] [address] 02/21/2024 9:00 AM EDT [facility], [facility] [address] [facility] [place] [address] Pharmacist1, [facility] [address] [facility] [place] [address] 06/03/2024 9:00 AM EDT Telemedicine Psychiatry, [facility] [address] [place] [address] Janice Atwood MD [address] [place] [address] Scheduled Procedures Name Priority Associated Diagnoses Date/Ti [...] Additional history exists CKD PHOS USE SMARTSET 49157 06/18/2024 0901/2023, 06/16/2023, 06/15/2023, Additional history exists Diabetic Eye Exam 09/13/2024 09/13/2023, , 09/13/2023, Additional history exists B-12 09/18/2024 09/18/2023, 08/24, 2020, Additional history exists CKD HGB USE SMARTSET 78116 10/15/202410/15, 07/31/2023, 07/31/2023, Additional history exists TSH [...] this encounter Medical Devices Implanted Type Area Information Services Consultant Device Identifier Shelf Expiration Date Model / Serial / Lot Cath Roselia Single Lumen - [id number] Implanted:Qty : 1 on 03/12/2008 at [facility] Left: Chest [employer] *DO NOT USE* 07/25/2012 21-4053-24 / / [id number] Sut [facility] 6 M654g - [id number] Implanted:Qty : 1 on 11/01/2010 at [facility] N/A: Chest DO NOT USE M654G / / Sut Steel 6 M654g - [id number] Implanted:Qty : 1 on 11/01/2010 at OR [facility] N/A: Chest DO NOT USE M654G / / Valve Tarsha Aortic [id number] - [id number] Implanted:Qty : 1 on 11/01/2010 at OR [facility] N/A: Heart [employer] DANIEL 05/20/2012 2800TFX-25 / / [id number] Mesh Soft [id number] - [id number] Implanted:Qty : 1 on 10/10/2019 by Gigi Hendrickson MD at [place] [facility] N/A: Abdomen CR BARD : DAVOL [id number] 05/21/2024 [id number] / / [id number] Lens 22.5 Sn60wf - [id number] - [id number] Implanted:Qty : 1 on 09/15/2020 by Renaldo Cook, Cece Acosta MD at OR [facility] Right: Eye IVA : SURGICAL [id number] 05/13/2025 SN60 WF.225 / [id number] / [id number] Lens 21.5 Sn60wf - [id number] - [id number] Implanted:Qty : 1 on 12/19/2023 by Ramsey Burnett DO at OR [facility] Left: Eye IVA : SURGICAL 12/03/2024 SN60WF.2 15 / [id number] / documented as of this encounter [...] the patient have Health Care Power of Information Systems Security Manager? No Full Code 10/10/2019 8:40 AM 10/10/2019 5:53 PM This order reflects the patients wishes and were consensually agreed upon. Healthcare Agents on File Name Relationship Healthcare Agent Relationshi p Communication [facility]igi Gutierrez [facility] Health Care Repr esentative (appointed verbally by patient or by statute hierarchy) Care Teams Ballet Teacher Relationship Specialty Start Date End Date Gregory Rausch MD [address] [facility] [place] [address] PCP - General Family Medicine 02/12/20 documented as of this encounter
--- OUTSIDE RECORDS SUMMARY | 2024-06-05 15:02 | External Medical Summary | Summary of Care ---
Author Name Unknown Organization [facility] Address [address] [place] [address] Phone [phone] Care Team Providers Care Ash Handler Name Role Phone Gregory Rausch MD Primary Care Provider [phone] Reason for Visit * Reason Onset Date Comments Follow Up 12/23/2023 Encounter Details Date Type Department Care Team (Late st Contact Info) Description 12/23/2023 8:30 AM EDT Scheduled Telephone [facility] [place], [facility] [address] [place] [address] [facility], Nurse [facility] [address] [place], [place] [id number] Allergies Active Allergy Reactions Criticality Noted Date Comments Adhesive Tape 07/02/2017 Can tolerate band-aids Glycerin Other (Please comment) 03/12/2008 Topical agents with glycein-burning & itching Lactose 12/09/2014 Dairy - gas Lisinopril Cough 01/21/2010 Monosodium Glutamate Edema Other 03/12/2008 Hands and feet Penicillins Rash 11/14/2007 documented as of this encounter (statuses as of 12/23/2023) Medications Medication Sig Dispensed Refills Start Date [...] [facility]) Inject 30 Units under the skin at [...] systolic, due to idiopathic cardiomyopathy ([facility]),S/P aortic valve replacement,HTN, goal below 140/80,Dyslipidemia, goal [...] daily. 400 g 3 10/02/2023 Active Nystatin 544517 UNIT/GM External Powder (Nystop)Indications:C andidal intertrigo Apply [...] ([facility]),Type 2 diabetes mellitus with diabetic mononeuropathy, with long-term current use of insulin ([facility]),Type 2 diabetes mellitus with both eyes affected by mild nonproliferative retinopathy and macular edema, with long-term current use of insulin ([facility]),Type 2 diabetes mellitus with stage 3a chronic kidney disease, with long-term current use of insulin ([facility]) Inject 2 mg under the skin once a week. 9 mL 3 10/01/2023 Active Additional Information Patient taking differently:2 mg Subcutaneous QWEEK,Indications: weekly on fridays, Reported on 11/26/2023 traZODone HCl 100 MG Oral Tablet (Desyrel) Take 1 Tablet by mouth at bedtime. 0 Active Dexcom G6 TransmitterIndication s:Type 2 diabetes mellitus with hemoglobin A1c goal of less than 7.0% ([facility]) Use as directed. Use 1 transmitter every 90 days E 11.9 1 Each 3 10/18/2023 Active Dexcom G6 SensorIndications:Typ e 2 diabetes mellitus with hemoglobin A1c goal of less than 7.0% ([facility]) Use as directed. Use 1 sensor every 10 days E 11.9 9 Each 3 10/18/2023 Active Gabapentin 100 MG Oral Capsule (Neurontin)Indication s:Polyneuropathy associated with underlying disease ([facility]) TAKE 1 CAPSULE BY MOUTH EVERY DAY [...] as of this encounter (statuses as of 12/23/2023) Active Problems Problem Noted Date Diagnosed Date [...] eye 09/28/2020 Coronary artery disease invo lving pauma coronary artery of pauma heart without angina pectoris 12/16/2019 Last Assessment [...] as of this encounter (statuses as of 12/23/2023) Resolved Problems Problem Noted Date Diagnosed Date [...] 12/21/2016 Diabetes mellitus 01/05/2014 12/21/2016 LEYVA RESEARCH OTHER*[id number] 01/05/2014 12/21/2016 Axillary pain 11/03/2013 12/21/2016 Obesity, [...] to be scanned into Electronic Medical Record [facility] V710 Clinical Trial*[id number] 12/22/2010 04/14/2011 S/P aortic valve replacement 12/01/2010 08/26/2011 S/P AORTIC VALVE REPLACEMENT - #25 pericardial Mc valve 11/01/2010 06/28/2018 Overview: Aortic valve replacement with #25 pericardial Mc valve, model 2800TFX, serial number [id number] (Dr. Walker) [facility] V710 Clinical Trial*[id number] 10/18/2010 11/21/2010 Body mass index (BMI) of [...] as of this encounter (statuses as of 12/23/2023) Immunizations Name Administration Dates Next Due COVID-19 mRNA, LNP-s, No Pre serve, 2-Dose Series (Moderna) 10/25/2021,02/16/2021,01/18/2021 HEP A - Hepatitis A (Adult > 18 yrs) 06/07/2018, 12/05/2017 Hepatitis B, 20+ yrs 06/07/2018,01/08/20 18,12/05/2017,06/15,10/27/2013,09/12/2013 Pneumococcal Conjugate Vacci ne, 20-valent ([id number]) 06/22/2023 Pneumococcal Polysaccharide PPV23 (Pneumovax) 01/02/2008 Seasonal [...] Answer Date Recorded PHQ Adult Total Score 14 12/11/2023 Hunger Vital Sign Answer Date Recorded Within [...] encounter Miscellaneous Notes * Telephone Encounter - Yola Dailey RN - 12/23/2023 9:32 AM EDT Follow up for C-Diff symptoms- ABT changed from Vancomycin to Fidaxomicin 12/20. Made aware of change 12/20 per telephone encounter. Spoke with patient- the medication had to be ordered. It will be available for shrimp picker tomorrow 12/23. Blood sugar 187 this am. Eating and drinking well per report. Offers no complaints. Encouraged to call [place] with worsening symptoms. Voices understanding. documented in this encounter Plan of Treatment Upcoming Encounters Date Type Department Care Team (Late st Contact Info) Description 12/25/2023 12:30 PM EDT Telemedicine Psychology [facility] [address] [place] [address] Jovita Aquino, JAVA GROOVY DEVELOPER [address] [place] [address] 01/02/2024 12:30 PM EDT Home Visit [facility], [facility] 132 [facility] [address] Jaycee Sorto, RN [address] [facility] [place] [address] 01/03/2024 9:00 AM EDT Office Visit Ophthalmology, [facility] 132 [place] [address] Ramsey Burnett, DO [address] [facility] [place] [address] 01/08/2024 9:20 AM EDT Office Visit Nephrology, [address] [address] Fidelina Baumann MD [address] [place] [address] 01/08/2024 11:30 AM EDT Office Visit Cardiology, [facility] 132 [place] [address] Roberto Carlos Muniz, DO [address] [facility] [place] [address] 01/24/2024 2:45 PM EDT Office Visit Ophthalmology, [facility] [address] [facility] [place] [address] Ramsey Burnett, DO [address] [facility] [place] [address] 02/01/2024 9:00 AM EDT Office Visit Pharmacy, [address] [place] [address] Pharmacist1, [facility] [address] [place] [address] 02/04/2024 10:20 AM EDT Office Visit Family Practice [facility] [address] [place] [place] [address] Gregory Rausch MD [address] [place] [address] 06/03/2024 9:00 AM EDT Telemedicine Psychiatry, [place] [address] [place], [place] [phone] Janice Atwood MD [address] [place] [address] Scheduled Procedures Name Priority Associated Diagnoses Date/Ti [...] Vaccine ( season) 2023 10/25/2021, 02/16/2021, 01/18/2021 Depression, Most Recent Score >= 10 (will fire each visit until score < 10) 12/12/2023 12/11/2023 DXA Scan 12/18/2023 01/12/2009 Albumin/Creatinine Ratio 03/09/2024 023, 12/22/2022, 05/05/2021, Additional history exists HbA1c 03/19/2024 09/18/2023, 11/0 03/2023, 04/09/2023, Additional history exists GFR 04/14/2024 10/15/2023, 11/0 05/2023, 07/31/2023, Additional history exists CKD PHOS USE SMARTSET 97804 06/18/202405/26, 06/16/2023, 06/15/2023, Additional history exists Diabetic Eye Exam 09/13/2024 09/13/2023, , 09/13/2023, Additional history exists B-12 09/18/2024 09/18/2023, 08/24, 2020, Additional history exists CKD HGB USE SMARTSET 51501 10/15/202410/15, 07/31/2023, 07/31/2023, Additional history exists TSH [...] encounter Medical Devices Implanted Type Area Manager Express Device Identifier Shelf Expiration Date Model / Serial / Lot Cath Roselia Single Lumen - [id number] Implanted:Qty : 1 on 03/12/2008 at [facility] Left: Chest [employer] *DO NOT USE* 07/25/2012 21-4053-24 / / [id number] Sut [facility] 6 M654g - [id number] Implanted:Qty : 1 on 11/01/2010 at [facility] N/A: Chest DO NOT USE M654G / / Sut Steel 6 M654g - [id number] Implanted:Qty : 1 on 11/01/2010 at OR [facility] N/A: Chest DO NOT USE M654G / / Valve Tarsha Aortic [id number] - [id number] Implanted:Qty : 1 on 11/01/2010 at OR [facility] N/A: Heart [employer] DANIEL 05/20/2012 2800TFX-25 / / [id number] Mesh Soft [id number] - [id number] Implanted:Qty : 1 on 10/10/2019 by Gigi Hendrickson MD at OR [facility] N/A: Abdomen CR BARD : DAVOL [id number] 05/21/2024 [id number] / / [id number] Lens 22.5 Sn60wf - [id number] - [id number] Implanted:Qty : 1 on 09/15/2020 by Renaldo Cook, Cece Acosta MD at OR [facility] Right: Eye IVA : SURGICAL [id number] 05/13/2025 SN60 WF.225 / [id number] / [id number] Lens 21.5 Sn60wf - [id number] - [id number] Implanted:Qty : 1 on 12/19/2023 by Ramsey Burnett DO at OR [facility] Left: Eye IVA : SURGICAL 12/03/2024 SN60WF.2 15 / [id number] / documented as of this encounter [...] the patient have Health Care Power of Drawbench Operator? No Full Code 10/10/2019 8:40 AM 10/10/2019 5:53 PM This order reflects the patients wishes and were consensually agreed upon. Healthcare Agents on File Name Relationship Healthcare Agent [facility] p Communication Gigi Rose Adult Child Health Care Repr esentative (appointed verbally by patient or by statute hierarchy) Care Teams Ash Handler Relationship Specialty Start Date End Date Gregory Rausch MD [address] [place] [address] PCP - General Family Medicine 02/12/20 documented as of this encounter
--- OUTSIDE RECORDS SUMMARY | 2024-06-05 15:02 | External Medical Summary | Summary of Care ---
Author Name Unknown Organization [facility] Address [address] [place] [address] Phone [phone] Care Team Providers Care Hogshead Weigher Name Role Phone Gregory Rausch MD Primary Care Provider [phone] Encounter Details Date Type Department Care Team (Late st Contact Info) Description 12/20/2023 Population Health External Data Unspecified Department Allergies [...] ER 10 MEQ Oral Tablet Extended ReleaseIndications:Ac choctaw on chronic heart failure with preserved ejection [...] daily. 400 g 3 10/02/2023 Active Nystatin 523281 UNIT/GM External Powder (Nystop)Indications:C andidal intertrigo Apply [...] eye 09/28/2020 Coronary artery disease invo lving osage coronary artery of osage heart without angina pectoris 12/16/2019 Last Assessment [...] 12/21/2016 Diabetes mellitus 01/05/2014 12/21/2016 LEYVA RESEARCH OTHER*[id number] 01/05/2014 12/21/2016 Axillary pain 11/03/2013 12/21/2016 Obesity, [...] [facility] V710 Clinical Trial*[id number] 12/22/2010 04/14/2011 S/P aortic valve replacement 12/01/2010 08/26/2011 S/P AORTIC VALVE REPLACEMENT - #25 pericardial Mc valve 11/01/2010 06/28/2018 Overview: Aortic valve replacement with #25 pericardial Mc valve, model 2800TFX, serial number [id number] (Dr. Walker) [facility] V710 Clinical Trial*[id number] 10/18/2010 11/21/2010 Body mass index (BMI) of [...] 06/07/2018,01/08/20 18,12/05/2017,06/15,10/27/2013,09/12/2013 Pneumococcal Conjugate Vacci ne, 20-valent (Urytsja27) 06/22/2023 Pneumococcal Polysaccharide PPV23 (Pneumovax) 01/02/2008 Seasonal [...] Description 12/25/2023 12:30 PM EDT Telemedicine Psychology [facility] [address] [address] Jovita Aquino LCSW [address] [place] [address] 01/02/2024 12:30 PM EDT Home Visit trey at [facility] [address] [place] [address] Jaycee Sorto RN [address] [place] [address] 01/03/2024 9:00 AM EDT Office Visit Ophthalmology, [facility] [address] [place] [address] Ramsey Burnett, [address] [place] [address] 01/08/2024 9:20 AM EDT Office Visit [facility], [facility] [address] [place] [address] Fidelina Baumann MD [address] [address] 01/08/2024 11:30 AM EDT Office Visit Cardiology, [facility] [address] [place] [address] Roberto Carlos Muniz, DO [address] [facility] [place] [address] 01/24/2024 2:45 PM EDT Office Visit Ophthalmology, [facility] [address] [place] [address] Ramsey Burnett, DO [address] [place] [address] 02/01/2024 9:00 AM EDT Office Visit Pharmacy, [facility] [address] [facility] [place] [address] Pharmacist1, [facility] [address] [facility] [address] [place] [address] 02/04/2024 10:20 AM EDT Office Visit Family Practice [facility] 132 [place] [address] Gregory Rausch MD [address] [facility] [place] [address] 06/03/2024 9:00 AM EDT Telemedicine Psychiatry, [place] [address] [place] [address] Janice Atwood MD [address] [place] [address] Scheduled Procedures Name Priority Associated Diagnoses Date/Ti [...] Additional history exists CKD PHOS USE SMARTSET 80311 06/18/2024 0901/2023, 06/16/2023, 06/15/2023, Additional history exists Diabetic Eye Exam 09/13/2024 09/13/2023, , 09/13/2023, Additional history exists B-12 09/18/2024 09/18/2023, 08/24, 2020, Additional history exists CKD HGB USE SMARTSET 29414 10/15/202410/15, 07/31/2023, 07/31/2023, Additional history exists TSH [...] this encounter Medical Devices Implanted Type Area C Consultant Device Identifier Shelf Expiration Date Model / Serial / Lot Cath Roselia Single Lumen - [id number] Implanted:Qty : 1 on 03/12/2008 at OR [facility] Left: Chest [facility] *DO NOT USE* 07/25/2012 21-4053-24 / / [id number] Sut Steel 6 M654g - [id number] Implanted:Qty : 1 on 11/01/2010 at OR [facility] N/A: Chest DO NOT USE M654G / / Sut Steel 6 M654g - [id number] Implanted:Qty : 1 on 11/01/2010 at OR [facility] N/A: Chest DO NOT USE M654G / / Valve Tarsha Aortic [id number] - [id number] Implanted:Qty : 1 on 11/01/2010 at OR [facility] N/A: Heart [employer] DANIEL 05/20/2012 2800TFX-25 / / [id number] Mesh Soft 72t33hd - [id number] Implanted:Qty : 1 on 10/10/2019 by Gigi Hendrickson MD at [facility] N/A: Abdomen CR BARD : DAVOL [id number] 05/21/2024 [id number] / / [id number] Lens 22.5 Sn60wf - [id number] - [id number] Implanted:Qty : 1 on 09/15/2020 by Renaldo Cook, Cece Acosta MD at [facility] Right: Eye IVA : SURGICAL [id number] 05/13/2025 SN60 WF.225 / [id number] / [id number] Lens 21.5 Sn60wf - [id number] - [id number] Implanted:Qty : 1 on 12/19/2023 by Ramsey Burnett DO at OR [facility] Left: Eye IVA : SURGICAL 12/03/2024 SN60WF.2 15 / [id number] / documented as of this encounter [...] the patient have Health Care Power of Event Specialist Product Demonstrator? No Full Code 10/10/2019 8:40 AM 10/10/2019 5:53 PM This order reflects the patients wishes and were consensually agreed upon. Healthcare Agents on File Name Relationship Healthcare Agent Relationshi p Communication Gigi Rose Adult Child Health Care Repr esentative (appointed verbally by patient or by statute hierarchy) Care Teams Hogshead Weigher Relationship Specialty Start Date End Date Gregory Rausch MD [address] [place] [address] PCP - General Family Medicine 02/12/20 documented as of this encounter
--- OUTSIDE RECORDS SUMMARY | 2024-06-05 15:02 | External Medical Summary | Summary of Care ---
Author Name Unknown Organization [facility] Address [address] [place] [address] Phone [phone] Care Team Providers Care Pet Food Deboner Name Role Phone Gregory Rausch MD Primary Care Provider [phone] Reason for Visit * Reason Onset Date Comments [facility]: Maintenance 12/21/2023 Encounter Details Date Type Department Care Team (Late st Contact Info) Description 12/21/2023 2:30 PM EDT Scheduled Telephone [facility], [facility] [address] [place] [address] Coordinator, [facility] 132 [facility] [place] [address] Allergies Active Allergy Reactions Criticality Noted Date Comments Adhesive Tape 07/02/2017 Can tolerate band-aids Glycerin Other (Please comment) 03/12/2008 Topical agents with glycein-burning & itching Lactose 12/09/2014 Dairy - gas Lisinopril Cough 01/21/2010 Monosodium Glutamate Edema Other 03/12/2008 Hands and feet Penicillins Rash 11/14/2007 documented as of this encounter (statuses as of 12/21/2023) Medications Medication Sig Dispensed Refills Start Date [...] hypoglycemia E11.9 100 Tab 3 07/06/2021 Active OneBuildTouch Verio w/Device Kit Use up to 4 times a day E11.9 1 Kit 0 02/10/2022 Active OneBuildTouch Delica Lancets 33G TEST 4 TIMES DAILY [...] OTHER MEDICATIONS 90 Tablet 2 05/05/2023 Active OneBuildTouch Verio In Vitro Strip (Glucose Blood) Use [...] daily. 400 g 3 10/02/2023 Active Nystatin 151410 UNIT/GM External Powder (Nystop)Indications:C andidal intertrigo Apply [...] [facility]),Type 2 diabetes mellitus with diabetic mononeuropathy, with long-term current use of insulin ([facility]),Type 2 diabetes mellitus with both eyes affected by mild nonproliferative retinopathy and macular edema, with long-term current use of insulin ([facility]),Type 2 diabetes mellitus with stage 3a chronic kidney disease, with long-term current use of insulin ([facility]) Inject 2 mg under the skin [...] as of this encounter (statuses as of 12/21/2023) Active Problems Problem Noted Date Diagnosed Date [...] as of this encounter (statuses as of 12/21/2023) Resolved Problems Problem Noted Date Diagnosed Date [...] 12/21/2016 Diabetes mellitus 01/05/2014 12/21/2016 LEYVA RESEARCH OTHER*[id number] 01/05/2014 12/21/2016 Axillary pain 11/03/2013 12/21/2016 Obesity, [...] Record [facility] V710 Clinical Trial*[id number] 12/22/2010 04/14/2011 S/P aortic valve replacement 12/01/2010 08/26/2011 S/P AORTIC VALVE REPLACEMENT - #25 pericardial Mc valve 11/01/2010 06/28/2018 Overview: Aortic valve replacement with #25 pericardial Mc valve, model 2800TFX, serial number [id number] (Dr. Walker) [place] [id number] Clinical Trial*[id number] 10/18/2010 11/21/2010 Body mass index (BMI) of [...] as of this encounter (statuses as of 12/21/2023) Immunizations Name Administration Dates Next Due COVID-19 mRNA, LNP-s, No Pre serve, 2-Dose Series (Moderna) 10/25/2021,02/16/2021,01/18/2021 HEP A - Hepatitis A (Adult > 18 yrs) 06/07/2018, 12/05/2017 Hepatitis B, 20+ yrs 06/07/2018,01/08/20 18,12/05/2017,06/15,10/27/2013,09/12/2013 Pneumococcal Conjugate Vacci ne, 20-valent ([id number]) 06/22/2023 Pneumococcal Polysaccharide PPV23 (Pneumovax) 01/02/2008 Seasonal [...] Telephone Encounter - Angelica Welch RN - 12/21/2023 9:56 AM EDT [facility] Telephonic Nurse Follow-Up Call [facility] Subprogram: Focused Care Management (3-9 months) Follow Up Call Type: Routine follow up call / Status Check Acute issue requiring follow-up call: Other: follow up on cdiff symptoms Objective: 12/19/2023 3:10 PM 12/19/2023 2:45 PM 12/19/2023 2:28 PM 12/19/2023 12:36 PM 12/11/2023 9:26 AM VITALS ACROSS ENCOUNTERS BP 121/61 119/64 121/62 148/66 Pulse 105 108 90 90 Weight 68.9 kg 68.9 kg BMI 30.68 30.68 BMI 30.68 kg/m2 30.7 kg/m2 Medications: Vancomycin stopped. Pt to garbage pick up man fidaxomicin 200mg twice daily x 10 days. Order was sent to [facility]. Subjective: Condition Status: No change in symptoms Spoke with patient who reports she is still having >8 times Not sleeping well due to symptoms. Has home bp cuff. Bp checked at time of call 137/78 HR 93. Denies dizziness or feeling light headed, but notes she is careful when she stands due to feeling a little weaker. Blood sugar today -337 after eating. Checking sugars 3 times daily before meals usually but forgot this morning. Appetite fair. Trying to increase fluids. Drinking gatorade also. Wt today 154.6 lbs. Yesterday 156.8 lbs. Says this is close to her normal. Denies n/v or abdominal pain. Reviewed the below message from Darek Junior PA-C with her, "It sounds like the vancomycin is not working. I have placed an order for fidaxomicin 200mg twice daily x 10 days. Order was sent to [facility]. Please start this as soon as possible and stop vancomycin. Also ophthalmology has been attempting to contact you for post op follow up. Please reach out to their office to schedule TRACEY. I have placed a lab order for BMP to check kidney function and electrolytes due to ongoing diarrhea. You can have this drawn at [facility] when you go for post op follow up. " Also will send in MyG message to patient. Pt able to repeat back instructions correctly. Advised ptto have labs done early next week regardless of when eye follow up is scheduled. Plan: Continue follow up calls through weekend direct care supervisor and start fidaxomicin tracey. Stop Vancomycin Stay hydrated No anti-diarrheal medications Call if having dizziness, light headed feeling, bp <90/60 Disposition: Routed to [facility] and/or [facility] Care Team for further advice and Weekend call scheduled Future Visits Scheduled: Future Appointments-next 60 days Date/Time Provider Specialty Dept Phone 12/21/2023 2:30 PM CoordinatorRashard [facility] [phone] 12/25/2023 12:30 PM Jovita Aquino, [facility] Psychology [phone] 01/02/2024 12:30 PM Jaycee Sorto RN [facility] [phone] 01/03/2024 9:00 AM Ramsey Burnett DO Ophthalmology [phone] 01/08/2024 9:20 AM (Arrive by 9:05 AM) Fidelina Baumann MD Nephrology [phone] 01/08/2024 11:30 AM (Arrive by 11:15 AM) Roberto Carlos Muniz DO Cardiology [phone] 01/24/2024 2:45 PM Ramsey Burnett DO Ophthalmology [phone] 02/01/2024 9:00 AM Pharmacist, [facility] [phone] 02/04/2024 10:20 AM (Arrive by 10:05 AM) Gregory Rausch MD Family Medicine [phone] 06/03/2024 9:00 AM Janice Atwood MD Psychiatry [phone] Angelica Welch RN documented in this encounter Plan of Treatment Upcoming Encounters Date Type Department Care Team (Late st Contact Info) Description 12/22/2023 2:00 PM EDT Scheduled Telephone [facility], [address] [place] [address] [facility], Nurse [address] [place] [address] 12/23/2023 8:30 AM EDT Scheduled Telephone [facility], [facility] [address] [facility] [place] [address] [facility], Nurse [address] [place] [address] 12/25/2023 12:30 PM EDT Telemedicine Psychology [facility] [address] [facility] [place] [address] Jovita Aquino, EQUIPMENT RECORDS SUPERVISOR [address] [facility] [place] [address] 01/02/2024 12:30 PM EDT Home Visit [facility], [facility] 132 [place] [address] Jaycee Sorto, RN [address] [place] [address] 01/03/2024 9:00 AM EDT Office Visit Ophthalmology, [facility] [address] [place] [address] Ramsey Burnett, DO [address] [place] [address] 01/08/2024 9:20 AM EDT Office Visit Nephrology, [facility] [address] [place] [address] Fidelina Baumann MD [address] [place] [address] 01/08/2024 11:30 AM EDT Office Visit Cardiology, [facility] [address] [place] [address] Roberto Carlos Muniz, DO [address] [facility] [address] 01/24/2024 2:45 PM EDT Office Visit Ophthalmology, [facility] [address] [place] [address] Ramsey Burnett, DO [address] [place] [address] 02/01/2024 9:00 AM EDT Office Visit Pharmacy, [facility] [address] [place] [address] [address] Pharmacist1, [facility] [address] [place] [address] 02/04/2024 10:20 AM EDT Office Visit Family Practice [facility] [address] [place] [address] Gregory Rausch MD [address] [place] [address] 06/03/2024 9:00 AM EDT Telemedicine Psychiatry, [place] [address] [place] [address] Janice Atwood MD [address] [place] [address] Scheduled Procedures Name Priority Associated Diagnoses Date/Ti [...] Additional history exists CKD PHOS USE SMARTSET 19859 06/18/20242 01/2023, 06/16/2023, 06/15/2023, Additional history exists Diabetic Eye Exam 09/13/2024 09/13/2023, , 09/13/2023, Additional history exists B-12 09/18/2024 09/18/2023, 08/24, 2020, Additional history exists CKD HGB USE SMARTSET 51350 10/15/202410/15, 07/31/2023, 07/31/2023, Additional history exists TSH [...] this encounter Medical Devices Implanted Type Area Bisque Kiln Drawer Device Identifier Shelf Expiration Date Model / Serial / Lot Cath Roselia Single Lumen - [id number] Implanted:Qty : 1 on 03/12/2008 at OR [facility] Left: Chest [facility] *DO NOT USE* 07/25/2012 21-4053-24 / / [id number] Sut Steel 6 M654g - [id number] Implanted:Qty : 1 on 11/01/2010 at OR [facility] N/A: Chest DO NOT USE M654G / / Sut Steel 6 M654g - [id number] Implanted:Qty : 1 on 11/01/2010 at OR [facility] N/A: Chest DO NOT USE M654G / / Valve Tarsha Aortic [id number] - [id number] Implanted:Qty : 1 on 11/01/2010 at OR [facility] N/A: Heart [employer] D[employer]EL 05/20/2012 2800TFX-25 / / [id number] Mesh Soft [id number] - [id number] Implanted:Qty : 1 on 10/10/2019 by Gigi Hendrickson MD at OR [facility] N/A: Abdomen CR BARD : DAVOL [id number] 05/21/2024 [id number] / / [id number] Lens 22.5 Sn60wf - [id number] - [id number] Implanted:Qty : 1 on 09/15/2020 by Renaldo Cook, Cece Acosta MD at [facility] Right: Eye IVA : SURGICAL [id number] 05/13/2025 SN60 WF.225 / [id number] / [id number] Lens 21.5 Sn60wf - [id number] - [id number] Implanted:Qty : 1 on 12/19/2023 by Ramsey Burnett DO at OR [facility] Left: Eye IVA : SURGICAL 12/03/2024 SN60WF.2 15 / [id number] / documented as of this encounter [...] the patient have Health Care Power of Card Painter? No Full Code 10/10/2019 8:40 AM 10/10/2019 5:53 PM This order reflects the patients wishes and were consensually agreed upon. Healthcare Agents on File Name Relationship Healthcare Agent Relationshi p Communication Gigi Rose Adult Child Health Care Repr esentative (appointed verbally by patient or by statute hierarchy) Care Teams Pet Food Deboner Relationship Specialty Start Date End Date Gregory Rausch MD [address] [place] [address] PCP - General Family Medicine 02/12/20 documented as of this encounter
--- OUTSIDE RECORDS SUMMARY | 2024-06-05 15:02 | External Medical Summary | Summary of Care ---
Author Name Unknown Organization [facility] Address [address] [place] [address] Phone [phone] Care Team Providers Care Stem Setter Name Role Phone Gregory Rausch MD Primary Care Provider [phone] Reason for Visit * Reason Onset Date Comments [facility]: Maintenance 12/22/2023 Encounter Details Date Type Department Care Team (Late st Contact Info) Description 12/22/2023 2:00 PM EDT Scheduled Telephone [facility], [facility] [address] [place] [address] [employer], Nurse [facility] [address] [place] [address] Allergies Active Allergy Reactions Criticality Noted Date Comments Adhesive Tape 07/02/2017 Can tolerate band-aids Glycerin Other (Please comment) 03/12/2008 Topical agents with glycein-burning & itching Lactose 12/09/2014 Dairy - gas Lisinopril Cough 01/21/2010 Monosodium Glutamate Edema Other 03/12/2008 Hands and feet Penicillins Rash 11/14/2007 documented as of this encounter (statuses as of 12/22/2023) Medications Medication Sig Dispensed Refills Start Date [...] hypoglycemia E11.9 100 Tab 3 07/06/2021 Active MPOWER MobileTouch Verio w/Device Kit Use up to 4 times a day E11.9 1 Kit 0 02/10/2022 Active MPOWER MobileTouch Delica Lancets 33G TEST 4 TIMES DAILY [...] OTHER MEDICATIONS 90 Tablet 2 05/05/2023 Active MPOWER MobileTouch Verio In Vitro Strip (Glucose Blood) Use up to 4 times a day E11.9 100 Strip 11 07/26/2023 Active Potassium Chloride [facility] 10 MEQ Oral Tablet Extended ReleaseIndications:Ac afognak on chronic heart failure with preserved ejection [...] daily. 400 g 3 10/02/2023 Active Nystatin 576456 UNIT/GM External Powder (Nystop)Indications:C andidal intertrigo Apply [...] ([facility]) Use as directed. Use 1 transmitter every 90 days E 11.9 1 Each 3 10/18/2023 Active Dexcom G6 SensorIndications:Typ e 2 diabetes mellitus with hemoglobin A1c goal of less than 7.0% ([facility]) Use as directed. Use 1 sensor every 10 days E 11.9 9 Each 3 10/18/2023 Active Gabapentin 100 MG Oral Capsule (Neurontin)Indication s:Polyneuropathy associated with underlying disease ([facility]) TAKE 1 CAPSULE BY MOUTH EVERY DAY [...] as of this encounter (statuses as of 12/22/2023) Active Problems Problem Noted Date Diagnosed Date [...] eye 09/28/2020 Coronary artery disease invo lving [place] coronary artery of [place] heart without angina pectoris 12/16/2019 Last Assessment [...] as of this encounter (statuses as of 12/22/2023) Resolved Problems Problem Noted Date Diagnosed Date [...] d isorder, in full remission 12/05/2017 2020 NAIVAL (generalized anxiety disorder) 12/05/2017 04/18/2023 Last Assessment [...] 12/21/2016 Diabetes mellitus 01/05/2014 12/21/2016 LEYVA RESEARCH OTHER*[id number] 01/05/2014 12/21/2016 Axillary pain 11/03/2013 12/21/2016 Obesity, [...] [facility] V710 Clinical Trial*[id number] 12/22/2010 04/14/2011 S/P aortic valve replacement 12/01/2010 08/26/2011 S/P AORTIC VALVE REPLACEMENT - #25 pericardial Mc valve 11/01/2010 06/28/2018 Overview: Aortic valve replacement with #25 pericardial Mc valve, model 2800TFX, serial number [id number] (Dr. Walker) [place] [id number] Clinical Trial*[id number] 10/18/2010 11/21/2010 Body mass index (BMI) of [...] as of this encounter (statuses as of 12/22/2023) Immunizations Name Administration Dates Next Due COVID-19 mRNA, LNP-s, No Pre serve, 2-Dose Series (Moderna) 10/25/2021,02/16/2021,01/18/2021 HEP A - Hepatitis A (Adult > 18 yrs) 06/07/2018, 12/05/2017 Hepatitis B, 20+ yrs 06/07/2018,01/08/20 18,12/05/2017,06/15,10/27/2013,09/12/2013 Pneumococcal Conjugate Vacci ne, 20-valent ([id number]) 06/22/2023 Pneumococcal Polysaccharide PPV23 (Pneumovax) 01/02/2008 Seasonal [...] encounter Miscellaneous Notes * Telephone Encounter - Andria Kamara RN - 12/22/2023 9:10 AM EDT [facility] Telephonic Nurse Follow-Up Call [facility] Subprogram: Focused Care Management (3-9 months) Follow Up Call Type: Weekend Call Acute issue requiring follow-up call: Other: F/U on C- diff symptoms, Antbx switched Objective: 12/19/2023 3:10 PM 12/19/2023 2:45 PM 12/19/2023 2:28 PM 12/19/2023 12:36 PM 12/11/2023 9:26 AM VITALS ACROSS ENCOUNTERS BP 121/61 119/64 121/62 148/66 Pulse 105 108 90 90 Weight 68.9 kg 68.9 kg BMI 30.68 30.68 BMI 30.68 kg/m2 30.7 kg/m2 Remote Patient Monitoring: NONE Oxygen Needs: NO supplemental oxygen needs identified DME Needs: NO DME needs identified Medications: New medication(s) added: Stopped Vanco, 12/20 started Fidaxomicin 200 mg BID x 10 days Subjective: Condition Status: UTC Current Concerns: [place], message left [facility] with [facility]. Will get triage nurse, she can provide her an update. Confirm she started new antbx, # of diarrhea episodes, what is BP/HR Disposition: Weekend call scheduled Future Visits Scheduled: Future Appointments-next 60 days Date/Time Provider Specialty Dept Phone 12/22/2023 2:00 PM [employer], Nurse [facility] [phone] 12/23/2023 8:[address] [facility] Nurse [facility] at Home [phone] 12/25/2023 12:30 PM Jovita Aquino [facility] Psychology [phone] 01/02/2024 12:30 PM Jaycee Sorto RN [facility] [phone] 01/03/2024 9:00 AM Ramsey Burnett DO Ophthalmology [phone] 01/08/2024 9:20 AM (Arrive by 9:05 AM) Fidelina Baumann MD Nephrology [phone] 01/08/2024 11:30 AM (Arrive by 11:15 AM) Roberto Carlos Muniz DO Cardiology [phone] 01/24/2024 2:45 PM Ramsey Burnett DO Ophthalmology [phone] 02/01/2024 9:00 AM Pharmacist, [facility] [phone] 02/04/2024 10:20 AM (Arrive by 10:05 AM) Gregory Rausch MD Family Medicine [phone] 06/03/2024 9:00 AM Janice Atwood MD Psychiatry [phone] Andria Kamara, PRABHA documented in this encounter Plan of Treatment Upcoming Encounters Date Type Department Care Team (Late st Contact Info) Description 12/23/2023 8:30 AM EDT Scheduled Telephone [facility], [facility] [address] [facility] [place] [address] [employer], Nurse [facility] [place] [address] 12/25/2023 12:30 PM EDT Telemedicine Psychology [facility] 132 [facility] [place] [address] Jovita Aquino, PIG CONVEYOR OPERATOR 132 [facility] [place] [address] 01/02/2024 12:30 PM EDT Home Visit [facility], [facility] [address] [facility] [place] [address] Jaycee Sorto RN 132 [facility] [place] [address] 01/03/2024 9:00 AM EDT Office Visit Ophthalmology, [facility] [address] [facility] [place] [address] Ramsey Burnett, DO [address] [place] [address] 01/08/2024 9:20 AM EDT Office Visit Nephrology, [place] [address] [place] [address] Fidelina Baumann MD [address] [place] [address] 01/08/2024 11:30 AM EDT Office Visit Cardiology, [facility] [address] [facility] [place] [address] Roberto Carlos Muniz, DO 132 [facility] [place] [address] 01/24/2024 2:45 PM EDT Office Visit Ophthalmology, [facility] [address] [facility] [place] [address] Ramsey Burnett DO [address] [place] [address] 02/01/2024 9:00 AM EDT Office Visit Pharmacy, [facility] 200 [facility] [place] [address] Pharmacist1, [facility] [address] [facility] [place] [address] 02/04/2024 10:20 AM EDT Office Visit Family Practice [facility] 132 [facility] [place] [address] Gregory Rausch MD 132 [facility] [place] [address] 06/03/2024 9:00 AM EDT Telemedicine Psychiatry, [place] [address], [place] [id number] Janice Atwood MD [address] [place], [place] [id number] Scheduled Procedures Name Priority Associated Diagnoses Date/Ti [...] Additional history exists CKD PHOS USE SMARTSET 42643 06/18/202405/26, 06/16/2023, 06/15/2023, Additional history exists Diabetic Eye Exam 09/13/2024 09/13/2023, , 09/13/2023, Additional history exists B-12 09/18/2024 09/18/2023, 08/24, 2020, Additional history exists CKD HGB USE SMARTSET 34819 10/15/202410/15, 07/31/2023, 07/31/2023, Additional history exists TSH [...] this encounter Medical Devices Implanted Type Area Landing Scaler Device Identifier Shelf Expiration Date Model / Serial / Lot Cath Roselia Single Lumen - [id number] Implanted:Qty : 1 on 03/12/2008 at OR [facility] Left: Chest [employer] *DO NOT USE* 07/25/2012 21-4053-24 / / [id number] Sut Steel 6 M654g - [id number] Implanted:Qty : 1 on 11/01/2010 at OR [facility] N/A: Chest DO NOT USE M654G / / Sut Steel 6 M654g - [id number] Implanted:Qty : 1 on 11/01/2010 at OR [facility] N/A: Chest DO NOT USE M654G / / Valve Tarsha Aortic [id number] - [id number] Implanted:Qty : 1 on 11/01/2010 at OR [facility] N/A: Heart [employer] DANIEL 05/20/2012 2800TFX-25 / / [id number] Mesh Soft [id number] - [id number] Implanted:Qty : 1 on 10/10/2019 by Gigi Hendrickson MD at [place] [facility] N/A: Abdomen CR BARD : DAVOL [id number] 05/21/2024 [id number] / / [id number] Lens 22.5 Sn60wf - [id number] - [id number] Implanted:Qty : 1 on 09/15/2020 by Renaldo Cook, Cece Acosta MD at OR [facility] Right: Eye IVA : SURGICAL [id number] 05/13/2025 SN60 WF.225 / [id number] / [id number] Lens 21.5 Sn60wf - [id number] - [id number] Implanted:Qty : 1 on 12/19/2023 by Ramsey Burnett DO at OR [facility] Left: Eye IVA : SURGICAL 12/03/2024 SN60WF.2 15 / [id number] / documented as of this encounter [...] the patient have Health Care Power of Biomedical Equipment Tech? No Full Code 10/10/2019 8:40 AM 10/10/2019 5:53 PM This order reflects the patients wishes and were consensually agreed upon. Healthcare Agents on File Name Relationship Healthcare Agent Relationshi p Communication [facility] Child Health Care Repr esentative (appointed verbally by patient or by statute hierarchy) Care Teams Stem Setter Relationship Specialty Start Date End Date Gregory Rausch MD [address] [place] [address] PCP - General Family Medicine 02/12/20 documented as of this encounter
--- OUTSIDE RECORDS SUMMARY | 2024-06-05 15:03 | External Medical Summary | Summary of Care ---
Author Name Unknown Organization [facility] Address [address] [place] [address] Phone [phone] Care Team Providers Care Green End Man Name Role Phone Gregory Rausch MD Primary Care Provider [phone] Reason for Visit * Reason Onset Date Comments Appointment 12/20/2023 Encounter Details Date Type Department Care Team (Late st Contact Info) Description 12/20/2023 Telephone Ophthalmology, [facility] [address] [facility] [place] [address] Ramsey Burnett, DO [address] [place], [place] [phone] Appointment Allergies Active Allergy Reactions Criticality Noted Date Comments Adhesive Tape 07/02/2017 Can tolerate band-aids Glycerin Other (Please comment) 03/12/2008 Topical agents with glycein-burning & itching Lactose 12/09/2014 Dairy - gas Lisinopril Cough 01/21/2010 Monosodium Glutamate Edema Other 03/12/2008 Hands and feet Penicillins Rash 11/14/2007 documented as of this encounter (statuses as of 12/20/2023) Medications Medication Sig Dispensed Refills Start Date [...] once daily. 400 g 10/02/2023 Active Nystatin 275713 UNIT/GM External Powder (Nystop)Indications:C andidal intertrigo Apply [...] ([facility]) Inject 2 mg under the skin once [...] ([facility]) Use as directed. Use 1 transmitter every 90 days E 11.9 1 Each 3 10/18/2023 Active Dexcom G6 SensorIndications:Typ e 2 diabetes mellitus with hemoglobin A1c goal of less than 7.0% ([facility]) Use as directed. Use 1 sensor every 10 days E 11.9 9 Each 3 10/18/2023 Active Gabapentin 100 MG Oral Capsule (Neurontin)Indication s:Polyneuropathy associated with underlying disease (HCC) TAKE 1 CAPSULE BY MOUTH EVERY DAY IN THE MORNING , AT NOON, AND BEFORE BEDTIME 90 Capsule 0 10/23/2023 Active Vancomycin HCl 125 MG Oral Capsule (Vancocin) Take 1 Capsule by mouth every 6 hours for 10 days, THEN 1 Capsule 2 times a day for 7 days, THEN 1 Capsule daily for 7 days, THEN 1 Capsule every other day for 14 days. 68 Capsule 0 12/03/2023 Active DULoxetine HCl 20 MG Oral Capsule Delayed Release Particles (Cymbalta) Take 1 Capsule by mouth in the morning. 30 Capsule 5 12/12/2023 Active CPAP every night at bedtime. 0 Active documented as of this encounter (statuses as of 12/20/2023) Active Problems Problem Noted Date Diagnosed Date [...] eye 09/28/2020 Coronary artery disease invo lving [place] coronary artery of [place] heart without angina pectoris 12/16/2019 Last Assessment [...] as of this encounter (statuses as of 12/20/2023) Resolved Problems Problem Noted Date Diagnosed Date [...] 12/21/2016 Diabetes mellitus 01/05/2014 12/21/2016 LEYVA RESEARCH OTHER*[id number] 01/05/2014 12/21/2016 Axillary pain 11/03/2013 12/21/2016 Obesity, [...] 09/201008/26/2011 12/21/2016 FOLLOWING SURGERY, UNSPECIFI ED ([facility] 08/25/2011) 08/26/2011 12/21/2016 ADVANCE DIRECTIVE [...] Record [facility] V710 Clinical Trial*[id number] 12/22/2010 04/14/2011 S/P aortic valve replacement 12/01/2010 08/26/2011 S/P AORTIC VALVE REPLACEMENT - #25 pericardial Mc valve 11/01/2010 06/28/2018 Overview: Aortic valve replacement with #25 pericardial Mc valve, model 2800TFX, serial number [id number] (Dr. Walker) [facility] V710 Clinical Trial*[id number] 10/18/2010 11/21/2010 Body mass index (BMI) of [...] as of this encounter (statuses as of 12/20/2023) Immunizations Name Administration Dates Next Due COVID-19 mRNA, LNP-s, No Pre serve, 2-Dose Series (Moderna) 10/25/2021,02/16/2021,01/18/2021 HEP A - Hepatitis A (Adult > 18 yrs) 06/07/2018, 12/05/2017 Hepatitis B, 20+ yrs 06/07/2018,01/08/20 18,12/05/2017,06/15,10/27/2013,09/12/2013 Pneumococcal Conjugate Vacci ne, 20-valent ([id number]) 06/22/2023 Pneumococcal Polysaccharide PPV23 (Pneumovax) 01/02/2008 Seasonal [...] encounter Miscellaneous Notes * Telephone Encounter - Lakeshia Montero COA - 12/20/2023 8:58 AM EDT Attempted to contacted patient regarding her 1 day post op appointment for today. Patient unavailable [facility] requesting the patient return our call so we can see her today for her [address] [facility]. CHANDNI Valente 12/20/2023 9:00 AM documented in this encounter Plan of Treatment Upcoming Encounters Date Type Department Care Team (Late st Contact Info) Description 12/20/2023 12:15 PM EDT Scheduled Telephone [facility] [place], [address] [place] [address] Coordinator, [facility] [address] [place] [address] 12/25/2023 12:30 PM EDT Telemedicine Psychology [facility] [address] [place] [address] Jovita Aquino, [facility] [address] [place] [address] 01/02/2024 12:30 PM EDT [facility], [facility] [address] [place] [address] Jaycee Sorto RN [address] [facility] [place] [address] 01/03/2024 9:00 AM EDT Office Visit Ophthalmology, [facility] [address] [facility] [place] [address] Ramsey Burnett, DO [address] [facility] [place] [address] 01/08/2024 9:20 AM EDT Office Visit Nephrology, [facility] 200 [facility] [place] [address] Fidelina Baumann MD 200 [facility] [place] [address] 01/08/2024 11:30 AM EDT Office Visit Cardiology, [facility] 132 [facility] [place] [address] Roberto Carlos Muniz, 132 [facility] [place] [address] 01/24/2024 2:45 PM EDT Office Visit Ophthalmology, [facility] [place] [address] Ramsey Burnett, DO [address] [place] [address] 02/01/2024 9:00 AM EDT Office Visit Pharmacy, [facility] [address] [facility] [place] [address] Pharmacist1, [facility] 200 [facility] [place] [address] 02/04/2024 10:20 AM EDT Office Visit Family Practice [facility] [address] [place] [address] Gregory Rausch MD [address] [place] [address] 06/03/2024 9:00 AM EDT Telemedicine Psychiatry, [place] [address] [place] [address] Janice Atwood MD [address] [place] [address] Scheduled Procedures Name Priority Associated Diagnoses Date/Ti [...] 05/05/2021, Additional history exists HbA1c 03/19/2024 09/18/2023, 1103/2023, 04/09/2023, Additional history exists GFR 04/14/2024 10/15/2023, 05/2023, 07/31/2023, Additional history exists CKD PHOS USE SMARTSET 81117 06/18/2024 09/2 01/2023, 06/16/2023, 06/15/2023, Additional history exists Diabetic Eye Exam 09/13/2024 09/13/2023, , 09/13/2023, Additional history exists B-12 09/18/2024 09/18/2023, 08/24, 2020, Additional history exists CKD HGB USE SMARTSET 15289 10/15/202410/15, 07/31/2023, 07/31/2023, Additional history exists TSH [...] encounter Medical Devices Implanted Type Area Public Services Librarian Device Identifier Shelf Expiration Date Model / Serial / Lot Cath Roselia Single Lumen - [id number] Implanted:Qty : 1 on 03/12/2008 at [facility] Left: Chest [facility] *DO NOT USE* 07/25/2012 21-4053-24 / / [id number] Sut Steel 6 M654g - [id number] Implanted:Qty : 1 on 11/01/2010 at OR [facility] N/A: Chest DO NOT USE M654G / / Sut Steel 6 M654g - [id number] Implanted:Qty : 1 on 11/01/2010 at OR [facility] N/A: Chest DO NOT USE M654G / / Valve Tarsha Aortic 5569ydw33th - [id number] Implanted:Qty : 1 on 11/01/2010 at OR [facility] N/A: Heart [employer] DANIEL 05/20/2012 2800TFX-25 / / [id number] Mesh Soft 22o45ps - [id number] Implanted:Qty : 1 on 10/10/2019 by Gigi Hendrickson MD at [place] [facility] N/A: Abdomen CR BARD : DAVOL [id number] 05/21/2024 [id number] / / [id number] Lens 22.5 Sn60wf - [id number] - [id number] Implanted:Qty : 1 on 09/15/2020 by Renaldo Cook, Cece Acosta MD at [facility] Right: Eye IVA : SURGICAL [id number] 05/13/2025 SN60 WF.225 / [id number] / [id number] Lens 21.5 Sn60wf - [id number] - [id number] Implanted:Qty : 1 on 12/19/2023 by Ramsey Burnett DO at OR [facility] Left: Eye IVA : SURGICAL 12/03/2024 SN60WF.2 15 / [id number] / documented as of this encounter [...] the patient have Health Care Power of Well Service Floor Worker? No Full Code 10/10/2019 8:40 AM 10/10/2019 5:53 PM This order reflects the patients wishes and were consensually agreed upon. Healthcare Agents on File Name Relationship Healthcare Agent Relationshi p Communication Gigi Rose Adult Child Health Care Repr esentative (appointed verbally by patient or by statute hierarchy) Care Teams Green End Man Relationship Specialty Start Date End Date Gregory Rausch MD [address] [place] [address] PCP - General Family Medicine 02/12/20 documented as of this encounter
--- OUTSIDE RECORDS SUMMARY | 2024-06-05 15:03 | External Medical Summary | Summary of Care ---
Author Name Unknown Organization [facility] Address [address] [place] [address] Phone [phone] Care Team Providers Care Ecommerce Analyst Name Role Phone Deon Rausch MD Primary Care Provider [phone] Reason for Visit * Reason Onset Date Comments Order Request 12/13/2023 Encounter Details Date Type Department Care Team (Late st Contact Info) Description 12/13/2023 Telephone Family Practice [facility] [address] [place] [address] Deon Rausch MD [address] [facility] [place] [address] Order Request Allergies Active Allergy Reactions Criticality Noted Date Comments Adhesive Tape 07/02/2017 Can tolerate band-aids Glycerin Other (Please comment) 03/12/2008 Topical agents with glycein-burning & itching Lactose 12/09/2014 Dairy - gas Lisinopril Cough 01/21/2010 Monosodium Glutamate Edema Other 03/12/2008 Hands and feet Penicillins Rash 11/14/2007 documented as of this encounter (statuses as of 12/14/2023) Medications Medication Sig Dispensed Refills Start Date [...] ER 10 MEQ Oral Tablet Extended ReleaseIndications:[place] chronic heart failure with preserved ejection [...] once daily. 400 g 10/02/2023 Active Nystatin 018800 UNIT/GM External Powder (Nystop)Indications:C andidal intertrigo Apply [...] current use of insulin ([facility]) Inject 2 mg under the skin once [...] the morning. 30 Capsule 5 12/12/2023 Active documented as of this encounter (statuses as of 12/14/2023) Active Problems Problem Noted Date Diagnosed Date [...] eye 09/28/2020 Coronary artery disease invo lving [place] coronary artery of [place] heart without angina pectoris 12/16/2019 Last Assessment [...] as of this encounter (statuses as of 12/14/2023) Resolved Problems Problem Noted Date Diagnosed Date [...] 12/21/2016 Diabetes mellitus 01/05/2014 12/21/2016 LEYVA RESEARCH OTHER*[id number] 01/05/2014 12/21/2016 Axillary pain 11/03/2013 12/21/2016 Obesity, [...] to be scanned into Electronic Medical Record [facility] V710 Clinical Trial*[id number] 12/22/2010 04/14/2011 S/P aortic valve replacement 12/01/2010 08/26/2011 S/P AORTIC VALVE REPLACEMENT - #25 pericardial Mc valve 11/01/2010 06/28/2018 Overview: Aortic valve replacement with #25 pericardial Mc valve, model 2800TFX, serial number [id number] (Dr. Walker) [facility] V710 Clinical Trial*[id number] 10/18/2010 11/21/2010 Body mass index (BMI) of [...] as of this encounter (statuses as of 12/14/2023) Immunizations Name Administration Dates Next Due COVID-19 mRNA, LNP-s, No Pre serve, 2-Dose Series (Moderna) 10/25/2021,02/16/2021,01/18/2021 HEP A - Hepatitis A (Adult > 18 yrs) 06/07/2018, 12/05/2017 Hepatitis B, 20+ yrs 06/07/2018,01/08/20 18,12/05/2017,06/15,10/27/2013,09/12/2013 Pneumococcal Conjugate Vacci ne, 20-valent ([id number]) 06/22/2023 Pneumococcal Polysaccharide PPV23 (Pneumovax) 01/02/2008 Seasonal [...] Addendum Note - Deon Rausch MD - 12/14/2023 11:59 AM EDTAddended by: DEON RAUSCH on: 12/14/2023 11:59 AM Modules accepted: Orders * Telephone Encounter - Deon Rausch MD - 12/14/2023 11:59 AM EDT Signed. * Addendum Note - Angelica Yadav LPN - 12/14/2023 9:34 AM EDTAddended by: ANGELICA YADAV on: 12/14/2023 09:34 AM Modules accepted: Orders * Telephone Encounter - Pinky Avelar PHARM Tech - 12/13/2023 1:26 PM EDT An order was requested for this patient. Name of Requestor: Jovita Harrisonjennifer Order Request: pull ups x large and pads for the bed Diagnosis/Reason for Request: Does the order need to be faxed somewhere? If so, where?: Fax Number, if applicable: Call Back Number: [phone] Thank you for your assistance Pinky Avelar Line Construction Engineer II [facility] ([facility] (Formerly Telepharm[facility]) 12/13/2023,1:26 PM documented in this encounter Plan of Treatment Upcoming Encounters Date Type Department Care Team (Latest Contact Info) Description 2023 11:30 AM EDT Telemedicine Psychology [facility] [address] [place] [address] Jovita Aquino LCSW [address] [place] [address] 12/19/2023 1:53 PM EDT Hospital Encounter [facility], Operating Room [facility] [address] [place] [phone] Ramsey Burnett, DO [address] [place] [address] 12/19/2023 1:53 PM EDT - 12/19/2023 2:46 PM EDT Surgery OR [facility], Operating Room [facility] [address] [place] [id number] Ramsey Burnett, DO [address] [place] [address] LEFT EXTRACAPSULAR CATARACT REMOVAL COMPLEX WITH IOL 12/20/2023 8:30 AM EDT Office Visit Ophthalmology, [facility] [address] [facility] [place] [address] Ramsey Burnett, DO [address] [place] [address] 12/21/2023 6:10 PM EDT Pharmacy Pharm[place], [facility] [address] [facility] [place] [address] Pharmacist2, [facility] [address] [place] [address] 01/02/2024 12:30 PM EDT Home Visit [facility] Home, [facility] [address] [facility] [place] [address] Jaycee Sorto RN [address] [facility] [address] 01/03/2024 9:00 AM EDT Office Visit Ophthalmology, [facility] [address] [facility] [place] [address] Ramsey Burnett, DO [address] [place] [address] 01/08/2024 9:20 AM EDT Office Visit Nephrology, [facility] [address] [place] [address] Fidelina Baumann MD [address] [place] [address] 01/08/2024 11:30 AM EDT Office Visit Cardiology, [facility] [address] [facility] [place] [address] Roberto Carlos Muniz, DO [address] [facility] [place] [address] 01/24/2024 2:45 PM EDT Office Visit Ophthalmology, [facility] [place] [address] Ramsey Burnett DO [address] [place] [address] 02/04/2024 10:20 AM EDT Office Visit Family Practice [facility] [address] [address] Deon Rausch MD [address] [facility] [place] [address] 06/03/2024 9:00 AM EDT Telemedicine Psychiatry, [place] [address] [place] [address] Janice Atwood MD [address] [place] [address] Scheduled Procedures Name Priority Associated Diagnoses Date/Ti me EXTRACAPSULAR CATARACT REMOV AL COMPLEX WITH IOL Cataract 12/19/2023 1:53 PM EDT EXTRACAPSULAR CATARACT REMOV AL COMPLEX WITH IOL Cataract COLONOSCOPY FLEXIBLE PROXIMA L DIAGNOSTIC Recall History [...] visit until score < 10) 12/12/2023 12/11/2023 Albumin/Creatinine Ratio 03/09/2024 023, 12/22/2022, 05/05/2021, Additional history exists HbA1c 03/19/2024 09/18/2023, 11/0 03/2023, 04/09/2023, Additional history exists GFR 04/14/2024 10/15/2023, 11/0 05/2023, 07/31/2023, Additional history exists CKD PHOS USE SMARTSET 99179 06/18/2024 09/2 01/2023, 06/16/2023, 06/15/2023, Additional history exists Diabetic Eye Exam 09/13/2024 09/13/2023, , 09/13/2023, Additional history exists B-12 09/18/2024 09/18/2023, 08/24, 2020, Additional history exists CKD HGB USE SMARTSET 19209 10/15/202410/15, 07/31/2023, 07/31/2023, Additional history exists TSH [...] this encounter Medical Devices Implanted Type Area Criminal Intelligence Specialist Device Identifier Shelf Expiration Date Model / Serial / Lot Cath Roselia Single Lumen - [id number] Implanted:Qty : 1 on 03/12/2008 at OR [facility] Left: Chest [facility] *DO NOT USE* 07/25/2012 21-4053-24 / / [id number] Sut Steel 6 M654g - [id number] Implanted:Qty : 1 on 11/01/2010 at OR [facility] N/A: Chest DO NOT USE M654G / / Sut Steel 6 M654g - [id number] Implanted:Qty : 1 on 11/01/2010 at OR [facility] N/A: Chest DO NOT USE M654G / / Valve Tarsha Aortic [id number] - [id number] Implanted:Qty : 1 on 11/01/2010 at OR [facility] N/A: Heart [employer] DANIEL 05/20/2012 2800TFX-25 / / [id number] Mesh Soft 70m56ix - [id number] Implanted:Qty : 1 on 10/10/2019 by Gigi Hendrickson MD at [place] [facility] [place] N/A: Abdomen CR BARD : DAVOL [id number] 05/21/2024 [id number] / / [id number] Lens 22.5 Sn60wf - [id number] - [id number] Implanted:Qty : 1 on 09/15/2020 by Renaldo Cook, Cece Acosta MD at OR [facility] Right: Eye IVA : SURGICAL [id number] 05/13/2025 SN60 WF.225 / [id number] / [id number] documented as of this encounter Visit Diagnoses Diagnosis Urinary incontinence, nocturnal enuresis- Primary Nocturnal enuresis Cataract Unspecified cataract documented in this encounter [...] patient have Health Care Power of Information Services Tech? No Full Code 10/10/2019 8:40 AM [...] patient or by statute hierarchy) Care Teams Ecommerce Analyst Relationship Specialty Start Date End Date Deon Rausch MD [address] [place] [address] PCP - General Family Medicine 02/12/20 documented as of this encounter
--- OUTSIDE RECORDS SUMMARY | 2024-06-05 15:03 | External Medical Summary ---
Author Name Unknown Address Unknown Organization : Laboratory Report Ordering Provider Test Date Status CRISTAL ABDUL 12/19/2023 14:31:04 Final Observation Date Value Abnormality Reference (Units ) Status Glucose Point of Care 12/19/2023 14:31:04 100 70-120 (mg/dL) Final Performing Location
--- OUTSIDE RECORDS SUMMARY | 2024-06-05 15:03 | External Medical Summary ---
Author Name Unknown Address Unknown Organization : Laboratory Report Ordering Provider Test Date Status CRISTAL ABDUL 12/19/2023 13:03:05 Final Observation Date Value Abnormality Reference (Units ) Status Glucose Point of Care 12/19/2023 13:03:05 125 Above high normal 70-120 (mg/dL) Final Performing Location
--- OUTSIDE RECORDS SUMMARY | 2024-06-05 15:03 | External Medical Summary | Summary of Care ---
Author Name Unknown Organization [facility] Address [address] [place] [address] Phone [phone] Care Team Providers Care Restaurant Inspector Name Role Phone Gregory Rausch MD Primary Care Provider [phone] Reason for Visit * Auth/Cert Specialty Diagnoses / Procedures Referred By Bruce wasserman Referred To Contact Diagnoses Cataract Cataract [H26.9] Procedures CATARACT SURGERY,COMPLEX LEFT EXTRACAPSULAR CATARACT REMOVAL COMPLEX WITH IOL Ramsey Burnett DO [address] [address] [place] [address] [place] [address] Referral ID Status Reason Start Date Expiration Date Visits Re quested Visits Authorized [id number] Encounter Details Date Type Department Care Team (Late st Contact Info) Description 12/19/2023 12:01 PM EDT - 12/19/2023 3:20 PM EDT Hospital Encounter [facility], Operating Room [facility] [address] [place] [address] Ramsey Burnett DO [address] [address] Discharge Disposition: Home - Self Care Allergies Active Allergy Reactions Criticality Noted Date [...] hypoglycemia E11.9 100 Tab 3 07/06/2021 Active CventTouch Verio w/Device Kit Use up to 4 times a day E11.9 1 Kit 0 02/10/2022 Active CventTouch Delica Lancets 33G TEST 4 TIMES DAILY [...] ER 10 MEQ Oral Tablet Extended ReleaseIndications:Ac wiyot on chronic heart failure with preserved ejection [...] daily. 400 g 3 10/02/2023 Active Nystatin 379764 UNIT/GM External Powder (Nystop)Indications:C andidal intertrigo Apply [...] eye 09/28/2020 Coronary artery disease invo lving [place] coronary artery of [place] heart without angina pectoris 12/16/2019 Last Assessment [...] 12/21/2016 Diabetes mellitus 01/05/2014 12/21/2016 LEYVA RESEARCH OTHER*[id number] 01/05/2014 12/21/2016 Axillary pain 11/03/2013 12/21/2016 Obesity, [...] scanned into Electronic Medical Record [facility] V710 Clinical Trial*[id number] 12/22/2010 04/14/2011 S/P aortic valve replacement 12/01/2010 08/26/2011 S/P AORTIC VALVE REPLACEMENT - #25 pericardial Mc valve 11/01/2010 06/28/2018 Overview: Aortic valve replacement with #25 pericardial Mc valve, model [id number], serial number [id number] (Dr. Walker) [employer] V710 Clinical Trial*[id number] 10/18/2010 11/21/2010 Body mass index (BMI) of [...] 06/07/2018,01/08/20 18,12/05/2017,06/15,10/27/2013,09/12/2013 Pneumococcal Conjugate Vacci ne, 20-valent ([id number]) 06/22/2023 Pneumococcal Polysaccharide PPV23 (Pneumovax) 01/02/2008 Seasonal [...] Sign Reading Time Taken Comments Blood Pressure 121/61 12/19/2023 3:10 PM EDT Pulse 105 12/19/2023 3:10 PM EDT Temperature 36.1 C (97 F) 12/19/2023 2:28 PM EDT Respiratory Rate 20 12/19/2023 3:10 PM EDT Oxygen Saturation 96% 12/19/2023 3:10 PM EDT Inhaled Oxygen Concentration - - Weight 68.9 kg (152 lb) 12/19/2023 12:36 PM EDT Height 149.9 cm (4' 11.02") 12/19/2023 12:36 PM EDT Body Mass Index 30.68 12/19/2023 12:36 PM EDT documented in this [...] No 11/06/2017 documented as of this encounter Discharge Instructions * Discharge Instr - AVS* Ramsey Burnett, DO - 12/19/2023 2:26 PM EDT Discharge Date: 12/19/23 Check your Patient Education Brochure for further information. If you have any further questions orconcerns after discharge and before 4:00 p.m. please contact your surgeons (Dr. Ramsey Burnett) office at [phone]. This is the [place] office and during the day it will give you an opportunity to talk to our ophthalmology physician office secretary. After 4:00 p.m. or on the weekend, call the [facility] at ([phone]) and ask for the transportation engineer extension agent. Please let the transportation engineer extension agent know you had surgery with Dr. Burnett and they will get in touch with Dr. Burnett. Go to the Emergency Room if you feel the situation is an emergency. If you present to another facility's emergency room, please call and inform your surgeon's office at the phone number provided above. The information below provides you with the instructions and the list of medications you need to betaking following discharge from the hospital. If you have any questions, please ask before leaving.Please carry this letter with you when you see your doctor in the clinic. If you have questions, you can reach us at the numbers above. Diet: Start with clear liquids (jello, tea, apple juice), avoid dairy products (milk, cheese, pudding, ice cream) and fried, greasy foods. Progress to prescribed diet as tolerated. If nausea should occur, have clear liquids only until soft foods can be tolerated. Activity: A responsible adult must be with the patient for 24 hours after surgery. Rest today and tomorrow, and then increase activity as tolerated. DO NOT drive, operate any appliances and/or machinery or sign legal documents for 24 hours. DO NOT touch or rub the operative eye. Keep shield in place except to place eyedrops. Sleep with eyeshield in place. Eye Drops: Begin eyedrops when arrive home Moxifloxacin: One Drop to left eye 4 times per day Prednisolone acetate (shake well): One Drop to left eye 4 times per day Erythromycin ophthalmic ointment - Instill at bedtime or as needed for pain/discomfort left eye Diclofenac: One drop to left eye 4 times per day Please use the Moxifloxacin drop first followed by the prednisolone drop. Shake the prednisolone 10-15 times prior to use. Wait at least 5 minutes between eyedrops. Please use your eyedrops first thing in morning prior to postoperative day 1 visit. Pain Contol: Tylenol extra-strength 1 tablet every 4 hours as needed for pain. Warnings: Call your surgeon promptly in case of: A. Pain that is not relieved by the medicine you were told to take (surface irritation and burning is common and not a concern) B. Swelling or pus-like drainage C. Persistent nausea and vomiting D. Other Questions or concerns Special Instructions: A. Do not lift heavy objects or bend until appointment tomorrow. B. If you have burning or scratchy sensation, it is okay to use the ophthalmic ointment In the blue kit - apply 1/4 inch into the gutter created by pulling lower eyelid down. Other Instructions/follow-up: A. A follow-up appointment has been made for you tomorrow, at the Eye clinic in the [facility] on the second floor. Please show up at your scheduled appointment time. B. Please Bring the blue bag with both eyedrops with you to post-op visit tomorrow. documented in this encounter Progress Notes * Ramsey Burnett DO - 12/19/2023 2:[address] [facility] [address] [address] OUTPATIENT SURGERY DISCHARGE SUMMARY NOTE Name: Jovita Rose Location: OR [facility]/OR Date: 12/19/2023 Time: 2:26 PM Surgery Date: 12/19/2023 Procedure: LEFT EXTRACAPSULAR CATARACT REMOVAL COMPLEX WITH IOL Left Surgeon: Ramsey Burnett DO Discharge Diagnosis: same After examination of this patient, I have determined she is ready for discharge to home when the patient meets criteria. Discharge instructions were given to the patient. documented in this encounter H&P Notes * Ramsey Burnett DO - 12/19/2023 12:55 PM EDT HISTORY & PHYSICAL INTERVAL NOTE [facility] [address] [address] History and Physical Update: Name: Jovita Rose Location: OR [facility]/OR Date: 12/19/2023 Time: 12:55 PM DATE OF HISTORY AND PHYSICAL: 11/21/23 BP: 148 mmHg/66 mmHg (12/19/23 1236) Pulse: 90 (12/19/23 1236) Temp: 36.78 C (12/19/23 1236) Temp Summary: Temp Min: 36.8 C (98.2 F) Max: 36.8 C (98.2 F) SpO2: 95 % (12/19/23 1236) O2 flow rate: Supplemental O2 Delivery: Room Air, None (12/19/23 1236) Heart Exam: regular rate and rhythm Lung Exam: clear to auscultation bilaterally I have reviewed the H&P previously performed and examined the patient today. There are no new findings noted. * Ramsey Burnett DO - 12/14/2023 12:14 PM EDT Images from the original note were not included. See PCP clearance. Office Visit 11/21/2023 Family Practice [facility] Gregory Rausch MD Family Medicine Pre-operative examination Dx pre-op exam; Referred by Ensor, Ramsey M, DO Reason for Visit Progress Notes Gregory Rausch MD (Physician) Family Medicine Expand All Collapse All[]Expand All by Default SUBJECTIVE: Jovita Rose is a 62 year old female. Chief Complaint Patient presents with pre-op exam HPI: Needs clearance for cataracts. She has undergone far more invasive procedures over the course of the past few years. She has multiple chronic medical problems that are all currently stable on her medication regimen. Problem List Patient Active Problem List Diagnosis Code Dyslipidemia E78.5 Type 2 diabetes mellitus with hemoglobin A1c goal of less than 7.0% ([facility]) E11.9 DANYELLE on CPAP G47.33 [...] stent placement Z95.5 Schizoaffective disorder, bipolar type ([facility]) F25.0 Medical marijuana use Z79.899 Coronary artery disease involving [place] coronary artery of [place] heart without angina pectoris I25.10 Cystoid macular edema of right eye H35.351 Chronic kidney disease, stage 3a N18.31 Type 2 diabetes mellitus with stage 3a chronic kidney disease, with long-term current use of insulin ([facility]) E11.22, N18.31, Z79.4 Type 2 diabetes mellitus with both eyes affected by mild nonproliferative retinopathy and macular edema, with long-term current use of insulin ([facility]) E11.3213, Z79.4 Type 2 diabetes mellitus with diabetic peripheral angiopathy without gangrene ([facility]) E11.51 Splenic infarct D73.5 Obesity, Class I, BMI 30.0-34.9 (see actual BMI) E66.9 Thrombocytopenia ([facility]) D69.6 Hypertensive kidney disease with stage 3a chronic kidney disease ([facility]) I12.9, N18.31 Current Medications Current Outpatient Medications Medication Sig Dispense Refill [...] insulin via insulin pump 1 Kit 0 Fluticasone Propionate 50 MCG/ACT Nasal Suspension [...] the skin at bedtime. 6 mL 2 Gaviscon 80-14.2 MG Oral Tablet Chewable (Alum [...] 1 Tablet by mouth in the morning. Metoprolol Tartrate 25 MG Oral Tablet (Lopressor) Take 1 Tablet by mouth in the morning and 1 Tablet before bedtime. 60 Tablet 5 Ammonium Lactate 12 % External Lotion (Lac-Hydrin) Apply to both feet once daily. 400 g 3 Aquaphor External Ointment Apply topically to affected area as needed for Dry Skin. Apply to face 420 g 0 Ozempic (2 MG/DOSE) 8 MG/3ML Subcutaneous Solution Pen-injector (Semaglutide (2 MG/DOSE)) Inject 2 mg under the skin once a week. 9 mL 3 traZODone HCl 100 MG Oral Tablet (Desyrel) Take 1 Tablet by mouth at bedtime. Gabapentin 100 MG Oral Capsule (Neurontin) TAKE 1 CAPSULE BY MOUTH EVERY DAY IN THE MORNING , AT NOON, AND BEFORE BEDTIME 90 Capsule 0 Vancomycin HCl 250 MG Oral Capsule (Vancocin) Take 1 Capsule by mouth every 6 hours. BD Glucose 5 GM Oral Tablet Chewable (Glucose) 3 every 15 minutes until glucose is > 100 mg/dL for hypoglycemia E11.9 100 Tab 3 CatchSquareuch Verio w/Device Kit Use up to 4 times a day E11.9 1 Kit 0 CatchSquareuch DelPollsb Lancets 33G TEST 4 TIMES DAILY DIRECTED, E11.9 400 Each 3 CatchSquareuch VerBRES Advisors In Vitro Strip (Glucose Blood) Use up to 4 times a day E11.9 100 Strip 11 Venelex External Ointment Apply topically to affected area 2 times a day. (Patient not taking: Reported on 08/03/2023) BD Pen Needle Short U/F 31G X 8 MM Use with insulin 4 times daily 400 Each 3 Insulin Aspart 100 UNIT/ML Injection Solution (NovoLOG) Use up to 50 units per day in Omnipod. 5 Each 3 BD Insulin Syringe 25G X 1" 1 ML (Insulin Syringe-Needle U-100) Use daily with omnipod as directed DX E11.9 100 Each 5 Curity Alcohol Swabs Pad Use as directed as needed 200 Each 5 Nystatin 854774 UNIT/GM External Powder (Nystop) Apply topically to affected area 3 times a day. Apply to affected areas 60 g 1 Dexcom G6 Transmitter Use as directed. Use 1 transmitter every 90 days E 11.9 1 Each 3 Dexcom G6 Sensor Use as directed. Use 1 sensor every 10 days E 11.9 9 Each 3 No current facility-administered medications for this visit. Allergy: Allergies Review of patient's allergies indicates: Allergen Reactions Adhesive Tape Can tolerate band-aids Glycerin Other (Please comment) Topical agents with glycein-burning & itching Lactose Dairy - gas Lisinopril Cough Monosodium Glutamate Edema Other Hands and feet Pcn [Penicillins] Rash OBJECTIVE: BP 118/64 | Pulse 72 | Temp 37 C (98.6 F) (Tympanic) | Resp 18 | Ht 1.499 m (4' 11") | Wt 70.8 kg (156 lb) | LMP 04/07/2011 | BMI 31.51 kg/m | BSA 1.72 m Gen: nad, uses wheeled walker, obese Lungs: ctab Heart: rrr, + systolic murmur, PMI non-displaced Ext: no c/c/e ASSESSMENT AND PLAN: (Z01.818) Pre-operative examination (primary encounter diagnosis) Plan: cleared for cataract removal Follow up as needed. No other complaints were offered at this time. Gregory Rausch MD documented in this encounter Nursing Notes * Florence Camacho RN - 12/19/2023 3:12 PM EDT Patient awake and oriented x3. Denies pain. No drainage from eye noted. Tolerating PO fluids. Discharge instructions given and patient verbalizes understanding. Patient wheeled to private vehicle anddischarged to home. * Florence Camacho RN - 12/19/2023 2:41 PM EDT Patient transferred to pacu 2 status post left cataract removal and lens placement. No drainage noted. Patient awake. Denies pain and nausea. Respirations are even and unlabored on room air. Abdomen soft and non distended. Vital signs stable. documented in this encounter OR Notes * OR Surgeon - Ramsey Burnett DO - 12/19/2023 2:[address] [facility] AND [address] [place] [address] OPERATIVE REPORT Name: Jovita Rose Date: 12/19/2023 Time: 2:27 PM Service: Ophthalmology Date of Operation: 12/19/2023 Pre-op Diagnosis: Nuclear age related Cataract Left eye Post-op Diagnosis: Nuclear age related Cataract Left eye Surgeon: Ramsey Burnett DO Assistants: None Anesthesia: Monitored Local Anesthesia with Sedation Operation: Cataract extraction to the Left eye with implantation of posterior intraocular lens. Findings: None Estimated Blood Loss: minimal IV Intake:<100 ml Urine output: 0 ml Drains: 0 INDICATIONS AND PERTINENT HISTORY: The patient has a visually significant cataract of the Left eye.The proposed procedure was discussed in detail with the patient. All feasible options were reviewedwith the appropriate indications and expected outcomes. Specimens and Disposition: None Complications: none Condition: Stable Description of Operation: The patient was identified with two identifiers and the procedure verified. Proper consent was verified. Antibiotic and dilating drops were instilled in the Left eye pre-operatively in the Pre-operative holding area. Fifteen minutes prior to transfer to the Operating Room, topical proparacaine drops and topical 2% lidocaine jelly were placed over the Left eye. The patient was then taken back to the Operating Room. Ophthalmic Betadine 5% was placed in the superior and inferior cul-de-sacs of theLeft eye. The Left eye was then prepped with 10% povidone-iodine and draped in the usual sterile fashion. After the lid speculum was inserted, a paracentesis incision was made at the 5 o'clock position with a sharp blade. MPF lidocaine was instilled. The anterior chamber was then refilled with Viscoat. The main wound was then created at 3' using the 2.4mm phacokeratome blade. A continuous curvilinear capsulorrhexis was then performed initially with a cystotome, then completed with Utrada forceps. Hydrodissection and hydrodelineation were achieved with balanced salt solution through a 27G cannula. The phacoemulsification handpiece was utilized to remove the lens nucleus with a lobffs-nqo-giqanwp technique. Omidria was utilized in the BSS fluid. This helped stabilize her small pupil during the surgery. Residual cortical material was removed with the irrigating and aspirating device. The ca psular bag was re-formed with viscoelastic. An SN60WF 21.50 diopters in power (selected after review and interpretation of IOL measurements), acrylic foldable lens was placed into the capsular bag uneventfully and rotated into position with a Sinskey hook. It was noted to be in a central and stableposition. The residual viscoelastic was irrigated and aspirated from the anterior chamber. Stromal hydration was applied to the wound. The anterior chamber was re-formed with balanced salt solution. The wounds were checked with Weck-cels and found to be watertight. Light cautery was applied to a leaking conjunctival vessel. The lid speculum was then removed. Brimonidine, prednisolone, ocuflox drops and erythromycin oph ointment were instilled in the eye. The patient tolerated the procedure well. There were no complications I performed the procedure Ramsey Burnett DO 12/19/2023 2:27 PM documented in this encounter Plan of Treatment Upcoming Encounters Date Type Department Care Team (Late st Contact Info) Description 12/20/2023 8:30 AM EDT Office Visit Ophthalmology, [facility] [address] [address] Ramsey Burnett DO [address] [facility] [address] [place] [address] 12/20/2023 12:15 PM EDT Scheduled Telephone [facility], [facility] [address] [address] Coordinator, [facility] [address] [address] 12/25/2023 12:30 PM EDT Telemedicine Psychology [facility] [address] [place] [address] Jovita Aquino, TAPE FOLDING MACHINE OPERATOR [address] [place] [address] 01/02/2024 12:30 PM EDT Home Visit [facility], [facility] [address] [place] [address] Jaycee Sorto, RN [address] [place] [address] 01/03/2024 9:00 AM EDT Office Visit Ophthalmology, [facility] [address] [place] [address] Ramsey Burnett, DO [address] [place] [address] 01/08/2024 9:20 AM EDT Office Visit Nephrology, [facility] [address] [place] [address] Fidelina Baumann MD [address] [place] [address] 01/08/2024 11:30 AM EDT Office Visit Cardiology, [facility] [address] [place] [address] Roberto Carlos Muniz, DO [address] [place] [address] 01/24/2024 2:45 PM EDT Office Visit Ophthalmology, [facility] [address] [facility] [place] [address] Ramsey Burnett, DO [address] [facility] [place] [address] 02/01/2024 9:00 AM EDT Office Visit Pharmacy, [facility] [address] [facility] [place] [address] Pharmacist1, [facility] [address] [place] [address] 02/04/2024 10:20 AM EDT Office Visit Family Practice [facility] [address] [place] [address] Gregory Rausch MD [address] [place] [address] 06/03/2024 9:00 AM EDT Telemedicine Psychiatry, [place] [address] [place] [address] Janice Atwood MD [address] [place] [address] Scheduled Orders Name Type Priority Associated Diagnoses Orde r Schedule GLUCOSE METER, POINT OF CARE (COMMUNICATION ORDER) Point of Care Testing Routine As Needed until discontinued starting 12/19/2023 Scheduled Procedures Name Priority Associated Diagnoses Date/Ti [...] Additional history exists CKD PHOS USE SMARTSET 33788 06/18/2024 09/2 01/2023, 06/16/2023, 06/15/2023, Additional history exists Diabetic Eye Exam 09/13/2024 09/13/2023, , 09/13/2023, Additional history exists B-12 09/18/2024 09/18/2023, 08/24, 2020, Additional history exists CKD HGB USE SMARTSET 50570 10/15/202410/15, 07/31/2023, 07/31/2023, Additional history exists TSH [...] encounter Medical Devices Implanted Type Area Certified Medical Technician Device Identifier Shelf Expiration Date Model / Serial / Lot Cath Roselia Single Lumen - [id number] Implanted:Qty : 1 on 03/12/2008 at OR [facility] Left: Chest [facility] *DO NOT USE* 07/25/2012 21-4053- [id number] Sut Steel 6 M654g - [id number] Implanted:Qty : 1 on 11/01/2010 at OR [facility] N/A: Chest DO NOT USE M654G / / Sut Steel 6 M654g - [id number] Implanted:Qty : 1 on 11/01/2010 at OR [facility] N/A: Chest DO NOT USE M654G / / Valve Tarsha Aortic [id number] - [id number] Implanted:Qty : 1 on 11/01/2010 at OR [facility] N/A: Heart [employer] 05/20/2012 2800TFX-25 / / [id number] Mesh Soft 34c60nt - [id number] Implanted:Qty : 1 on 10/10/2019 [place] Gigi Hendrickson [place] [facility] [place]: Abdomen CR BARD : DAVOL [id number] 05/21/2024 [id number] / / [id number] Lens 22.5 Sn60wf - [id number] - [id number] Implanted:Qty : 1 on 09/15/2020 by Renadlo Cook, Cece Acosta MD at OR [facility] Right: Eye IVA : SURGICAL [id number] 05/13/2025 SN60 WF.225 / [id number] / [id number] Lens 21.5 Sn60wf - [id number] - [id number] Implanted:Qty : 1 on 12/19/2023 by Ramsey Burnett DO at OR [facility] Left: Eye IVA : SURGICAL 12/03/2024 SN60WF.2 15 / [id number] / documented as of this encounter Procedures Procedure Name Priority Date/Time Associated Diagnosis Comments GLUCOSE METER, POINT OF CARE [facility] 12/19/2023 2:31 PM EDT GLUCOSE METER, POINT OF CARE [facility] 12/19/2023 1:03 PM EDT documented in this encounter Results * GLUCOSE METER, POINT OF CARE (12/19/2023 2:31 PM EDT) Glucose Meter 100 70 - 120 mg/dL 12/19/2023 2:33 PM EDT [facility] [place] 57-00 Blood Whole blood specimen / Unknown 12/19/2023 2:31 PM EDT 12/19/2023 2:33 PM EDT Ramsey Burnett DO LAB POINT OF CARE TE ST DOCKED DEVICE UNSOLICITED RESULTS [facility] [place] 57[address] [place] [address] * (ABNORMAL) GLUCOSE METER, POINT OF CARE (12/19/2023 1:03 PM EDT) [facility] Glucose Meter 125(H) 70 - 120 mg/dL 12/19/2023 1:15 PM EDT [facility] [place] 57-00 Blood Whole blood specimen / Unknown 12/19/2023 1:03 PM EDT 12/19/2023 1:15 PM EDT Ramsey Spearsann LAB POINT OF CARE TE ST DOCKED DEVICE UNSOLICITED RESULTS LAB[facility]ATORY [facility] [place] 57-[address] [place] [address] documented in this encounter Visit Diagnoses Diagnosis Combined forms of age-related cataract of left eye Other and combined forms of senile cataract Pseudophakia- Primary Lens replaced by other means documented in this encounter Administered Medications Inactive Administered Medications - up to 3 most recent administrations Medication Order MAR Action Action Date Dose Rate Site Diclofenac Sodium (Voltaren) 0.1 % ophthalmic solution 1 Drop 1 Drop, Left eye, Q5 MINUTES, First dose on Sun12/19/23 at 1300, Last dose on Sun12/19/23 at 1310, For 3 doses, PRE-OP: One drop to left eye every 5 minutes for 3 doses, Pre-Op Given 12/19/2023 12:56 PM EDT 1 Drop Given 12/19/2023 12:51 PM EDT 1 Drop Given 12/19/2023 12:45 PM EDT 1 Drop isolyte-S pH 7.4 infusion Intravenous, Plasma-LYTE 148, isolyte-S, and isolyte-S pH 7.4 are considered equivalent - including for MAR barcode scanning., CONTINUOUS, Starting on Sun12/19/23 at 1300, Until Sun12/19/23 at 1920, Pre-Op Continue from Pre-Op 12/19/2023 1:53 PM EDT 100 mL/hr New Bag 12/19/2023 1:07 PM EDT 500 mL 100 mL/hr Lidocaine urethral/mucosal 2 % gel 2 mL Topical, ONCE, 1 dose, On Sun12/19/23 at 1300, 15 minutes prior to scheduled surgery time, apply 2 ml to superior and inferior fornices left eye & tape eyes shut., Pre-Op Given 12/19/2023 1:10 PM EDT 2 mL moxifloxacin (Vigamox) 0.5 % ophthalmic solution 1 Drop 1 Drop, Left eye, Q5 MINUTES, First dose on Sun12/19/23 at 1300, Last dose on Sun12/19/23 at 1310, For 3 doses, PRE-OP: One drop to left eye every 5 minutes for 3 doses, Pre-Op Given 12/19/2023 12:56 PM EDT 1 Drop Given 12/19/2023 12:51 PM EDT 1 Drop Given 12/19/2023 12:45 PM EDT 1 Drop prednisoLONE Acetate (Pred Forte) 1 % ophthalmic suspension 1 Drop 1 Drop, Left eye, Q5 MINUTES, First dose on Sun12/19/23 at 1300, Last dose on Sun12/19/23 at 1310, For 3 doses, PRE-OP: One drop to left eye every 5 minutes for 3 doses., Pre-Op Given 12/19/2023 12:56 PM EDT 1 Drop Given 12/19/2023 12:51 PM EDT 1 Drop Given 12/19/2023 12:45 PM EDT 1 Drop proparacaine (Alcaine) 0.5 % ophthalmic solution 1 Drop 1 Drop, Left eye, ONCE, On Sun12/19/23 at 1300, For 1 dose, PRE-OP: 15 minutes prior to scheduled surgery time for 1 dose, Pre-Op Given 12/19/2023 12:4 5 PM EDT 1 Drop tropicamide 1%-cyclopentolate 1%-phenylephrine 2.5% ophthalmic solution 1 Drop 1 Drop, Left eye, Q5 MINUTES, First dose on Sun12/19/23 at 1330, Last dose on Sun12/19/23 at 1340, For 3 doses Given 12/19/2023 1:10 PM EDT 1 Drop Given 12/19/2023 1:05 PM EDT 1 Drop Given 12/19/2023 12:59 PM EDT 1 Drop documented in this encounter Active and Recently Administered Medications Times are shown in EDT. Scheduled Medication Order 2023 12/18/2023 12/19/2023 Diclofenac Sodium (Voltaren) 0.1 % ophthalmic solution 1 Drop (COMPLETED) 1 Drop, Left eye, Q5 MINUTES, First dose on Sun12/19/23 at 1300, Last dose on Sun12/19/23 at 1310, For 3 doses, PRE-OP: One drop to left eye every 5 minutes for 3 doses, Pre-Op 1245 (Given - Provid er: Destiny Ivey RN)1251 (Given - Provider: Destiny Ivey RN)1256 (Given - Provider: Destiny Ivey RN) Lidocaine urethral/mucosal 2 % gel 2 mL (COMPLETED) Topical, ONCE, 1 dose, On Sun12/19/23 at 1300, 15 minutes prior to scheduled surgery time, apply 2 ml to superior and inferior fornices left eye & tape eyes shut., Pre-Op 1310 (Given - Provid er: Destiny Ivey RN) moxifloxacin (Vigamox) 0.5 % ophthalmic solution 1 Drop (COMPLETED) 1 Drop, Left eye, Q5 MINUTES, First dose on Sun12/19/23 at 1300, Last dose on Sun12/19/23 at 1310, For 3 doses, PRE-OP: One drop to left eye every 5 minutes for 3 doses, Pre-Op 1245 (Given - Provid er: Destiny Ivey RN)1251 (Given - Provider: Destiny Ivey RN)1256 (Given - Provider: Destiny Ivey RN) prednisoLONE Acetate (Pred Forte) 1 % ophthalmic suspension 1 Drop (COMPLETED) 1 Drop, Left eye, Q5 MINUTES, First dose on Sun12/19/23 at 1300, Last dose on Sun12/19/23 at 1310, For 3 doses, PRE-OP: One drop to left eye every 5 minutes for 3 doses., Pre-Op 1245 (Given - Provid er: Destiny Ivey RN)1251 (Given - Provider: Destiny Ivey RN)1256 (Given - Provider: Destiny Ivey RN) proparacaine (Alcaine) 0.5 % ophthalmic solution 1 Drop (COMPLETED) 1 Drop, Left eye, ONCE, On Sun12/19/23 at 1300, For 1 dose, PRE-OP: 15 minutes prior to scheduled surgery time for 1 dose, Pre-Op 1245 (Given - Provid er: Destiny Ivey RN) tropicamide 1%-cyclopentolate 1%-phenylephrine 2.5% ophthalmic solution 1 Drop (COMPLETED) 1 Drop, Left eye, Q5 MINUTES, First dose on Sun12/19/23 at 1330, Last dose on Sun12/19/23 at 1340, For 3 doses 1259 (Given - Provid er: Destiny Ivey RN)1305 (Given - Provider: Destiny Ivey RN)1310 (Given - Provider: Destiny Ivey RN) Continuous Medication Order 2023 12/18/2023 12/19/2023 isolyte-S pH 7.4 infusion Intravenous, Plasma-LYTE 148, isolyte-S, and isolyte-S pH 7.4 are considered equivalent - including for MAR barcode scanning., CONTINUOUS, Starting on Sun12/19/23 at 1300, Until Sun12/19/23 at 1920, Pre-Op 1307 (New Bag - Prov ider: Destiny Ivey RN)1353 (Continue from Pre-Op - Provider: Ritu Miranda CRNA) PRN Medication Order 2023 12/18/2023 12/19/2023 briMONidine tartrate (Alphagan) 0.2 % ophthalmic solution (CANCELED) ONCE PRN INTRA PROCEDURE, Starting on Sun12/19/23 at 1408, Until Sun12/19/23 at 1422, Intra-Op 1408 (Given - Provid er: Ramsey Burnett DO) DUOVISC inj KIT (CANCELED) ONCE PRN INTRA PROCEDURE, Starting on Sun12/19/23 at 1409, Until Sun12/19/23 at 1422, Intra-Op 1409 (Given - Provid er: Ramsey Burnett DO - Comment: qs) Erythromycin ophthalmic ointment (CANCELED) ONCE PRN INTRA PROCEDURE, Starting on Sun12/19/23 at 1409, Until Sun12/19/23 at 1422, Intra-Op 1409 (Given - Provid er: Ramsey Burnett DO) hydroxypropyl methylcellulose (Ocucoat) 2 % intraocular inj (CANCELED) ONCE PRN INTRA PROCEDURE, Starting on Sun12/19/23 at 1409, Until Sun12/19/23 at 1422, Intra-Op 1409 (Given - Provid er: Ramsey Burnett DO - Comment: qs) Lidocaine 1 % (PF) inj (CANCELED) ONCE PRN INTRA PROCEDURE, Starting on Sun12/19/23 at 1409, Until Sun12/19/23 at 1422, Intra-Op 1409 (Given - Provid er: Ramsey Burnett DO - Comment: qs) moxifloxacin (Vigamox) 0.5 % ophthalmic solution (CANCELED) ONCE PRN INTRA PROCEDURE, Starting on Sun12/19/23 at 1410, Until Sun12/19/23 at 1422, Intra-Op 1410 (Given - Provid er: Ramsey Burnett DO) Phenylephrine-Ketorolac 4 mL in balanced salt solution 500 mL inj (CANCELED) ONCE PRN INTRA PROCEDURE, Starting on Sun12/19/23 at 1410, Until Sun12/19/23 at 1422, Intra-Op 1410 (Given - Provid er: Ramsey Burnett DO - Comment: qs) prednisoLONE Acetate (Pred Forte) 1 % ophthalmic suspension (CANCELED) ONCE PRN INTRA PROCEDURE, Starting on Sun12/19/23 at 1412, Until Sun12/19/23 at 1422, Intra-Op 1412 (Given - Provid er: Ramsey Burnett DO) Tetracaine (Pontocaine) 0.5 % ophthalmic solution (CANCELED) ONCE PRN INTRA PROCEDURE, Starting on Sun12/19/23 at 1412, Until Sun12/19/23 at 1422, Intra-Op 1412 (Given - Provid er: Ramsey Burnett DO) documented in this encounter Advance Directives Latest [...] the patient have Health Care Power of Title Searcher? No Full Code 10/10/2019 8:40 AM 10/10/2019 5:53 PM This order reflects the patients wishes and were consensually agreed upon. Healthcare Agents on File Name Relationship Healthcare Agent Relationshi p Communication Gigi Rose Adult Child Health Care Repr esentative (appointed verbally by patient or by statute hierarchy) Care Teams Restaurant Inspector Relationship Specialty Start Date End Date Gregory Rausch MD [address] [place] [address] PCP - General Family Medicine 02/12/20 documented as of this encounter
--- OUTSIDE RECORDS SUMMARY | 2024-06-05 15:03 | External Medical Summary | Summary of Care ---
Author Name Unknown Organization [facility] Address [address] [place] [address] Phone [phone] Care Team Providers Care Video Player Mechanic Name Role Phone Deon Rausch MD Primary Care Provider [phone] Reason for Visit * Reason Onset Date Comments Order Request 12/13/2023 Encounter Details Date Type Department Care Team (Late st Contact Info) Description 12/13/2023 Telephone Family Practice [facility] [address] [place] [address] Deon Rausch MD [address] [facility] [place] [address] Order Request Allergies Active Allergy Reactions [...] of insulin ([facility]) Inject 30 Units under the skin at bedtime. 6 mL 2 07/31/20 Active Additional Information Patient taking differently:30 Units [...] systolic, due to idiopathic cardiomyopathy ([facility]),S/P aortic valve replacement,HTN, goal below 140/80,Dyslipidemia, goal LDL below 70 TAKE 1 TABLET BY MOUTH DAILY. TO PREVENT HEART ATTACK/STROKE, PROTECT KIDNEY, AND CHOLESTEROL 90 Tablet 1 08/20/20 Active Additional Information Patient taking differently: 40 mg Oral Daily(AM), Reported on 11/26/2023 Meclizine HCl 25 MG Oral Tablet (Antivert)Indication s:Muscle tension headache TAKE 2 TABLETS BY MOUTH TWICE A DAY 360 Tablet 3 08/20/20 Active metFORMIN HCl 1000 MG Oral Tablet (Glucophage) Take 1 Tablet by mouth 2 times a day with morning and evening meals. 180 Tablet 3 08/31/20 Active Additional Information Patient not taking.Reported on [...] bedtime. 60 Tablet 5 09/26/19 24 Active Ammonium Lactate 12 % External Lotion (Lac-Hydrin) Apply to both feet once daily. 400 g 3 10/02/19 24 Active Nystatin 317864 UNIT/GM External Powder (Nystop)Indications: Candidal intertrigo Apply [...] [facility]),Type 2 diabetes mellitus with diabetic mononeuropathy, with long-term current use of insulin ([facility]),Type 2 diabetes mellitus with both eyes affected by mild nonproliferative retinopathy and macular edema, with long-term current use of insulin ([facility]),Type 2 diabetes mellitus with stage 3a chronic kidney disease, with long-term current use of insulin ([facility]) Inject 2 mg under the skin once a week. 9 mL 3 10/01/19 24 Active Additional Information Patient taking differently:2 mg Subcutaneous QWEEK,Indications: weekly on fridays, Reported on 11/26/2023 traZODone HCl 100 MG Oral Tablet (Desyrel) Take 1 Tablet by mouth at bedtime. 0 Active Dexcom G6 TransmitterIndicatio ns:Type 2 diabetes mellitus with hemoglobin A1c goal of less than 7.0% ([facility]) Use as directed. Use 1 transmitter every 90 days E 11.9 1 Each 3 10/18/19 24 Active Dexcom G6 SensorIndications:Ty pe 2 diabetes mellitus with hemoglobin A1c goal of less than 7.0% ([facility]) Use as directed. Use 1 sensor every 10 days E 11.9 9 Each 3 10/18/19 24 Active Gabapentin 100 MG Oral Capsule (Neurontin)Indicatio ns:Polyneuropathy associated with underlying disease (HCC) TAKE 1 CAPSULE BY MOUTH EVERY DAY IN THE MORNING , AT NOON, AND BEFORE BEDTIME 90 Capsule 0 10/23/19 24 Active DULoxetine HCl 20 MG Oral Capsule Delayed Release Particles (Cymbalta) Take 1 Capsule by mouth in the morning. 30 Capsule 5 12/12/19 24 Active Vancomycin HCl 125 MG Oral Capsule (Vancocin) Take 1 Capsule by mouth every 6 hours for 10 days, THEN 1 Capsule 2 times a day for 7 days, THEN 1 Capsule daily for 7 days, THEN 1 Capsule every other day for 14 days. 68 Capsule 0 12/03/19 24 024 Discontinued documented as of [...] 12/21/2016 Diabetes mellitus 01/05/2014 12/21/2016 LEYVA RESEARCH OTHER*[id number] 01/05/2014 12/21/2016 Axillary pain 11/03/2013 12/21/2016 Obesity, [...] 12/21/2016 FOLLOWING SURGERY, UNSPECIFI ED ([facility] 08/25/2011) 08/26/2011 12/21/2016 ADVANCE DIRECTIVE INFORMATION 04/17/2011 12/21/2016 Overview: Yes, Patient instructed to provide copy of advance directive for provider to review and to be scanned into Electronic Medical Record ADVANCE DIRECTIVE INFORMATION 03/01/2011 12/21/2016 Overview: Yes, Patient instructed to provide copy of advance directive for provider to review and to be scanned into Electronic Medical Record [facility] V710 Clinical Trial*[id number] 12/22/2010 04/14/2011 S/P aortic valve replacement 12/01/2010 08/26/2011 S/P AORTIC VALVE REPLACEMENT - #25 pericardial Hernandez valve 11/01/2010 06/28/2018 Overview: Aortic valve replacement with #25 pericardial Hernandez valve, model 2800TFX, serial number [id number] (Dr. Walker) [place] [id number] Clinical Trial*[id number] 10/18/2010 11/21/2010 Body mass index (BMI) of [...] 06/07/2018,01/08/20 18,12/05/2017,06/15,10/27/2013,09/12/2013 Pneumococcal Conjugate Vacci ne, 20-valent ([id number]) 06/22/2023 Pneumococcal Polysaccharide PPV23 (Pneumovax) 01/02/2008 Seasonal [...] encounter Miscellaneous Notes * Telephone Encounter - Aaliyah Welch LPN - 12/21/2023 10:28 AM EDT Patient notified of order. Faxed info to [employer]. * Addendum Note - Deon Rausch MD - 12/14/2023 11:59 AM EDTAddended by: DEON RAUSCH on: 12/14/2023 11:59 AM Modules accepted: Orders * Telephone Encounter - Deon Rausch MD - 12/14/2023 11:59 AM EDT Signed. * Addendum Note - Angelica Yadav LPN - 12/14/2023 9:34 AM EDTAddended by: ANGELICA YADAV on: 12/14/2023 09:34 AM Modules accepted: Orders * Telephone Encounter - Pinky Avelar wood shingle roofer - 12/13/2023 1:26 PM EDT An order was requested for this patient. Name of Requestor: Jovita Rose Order Request: pull ups x large and pads for the bed Diagnosis/Reason for Request: Does the order need to be faxed somewhere? If so, where?: Fax Number, if applicable: Call Back Number: [phone] Thank you for your assistance Pinky Avelar Instructor Adjunct Pharmacy Technician II [facility] ([facility]) (Formerly Telepharmacy) 12/13/2023,1:26 PM documented in this encounter Plan of Treatment Upcoming Encounters Date Type Department Care Team (Late st Contact Info) Description 12/21/2023 2:30 PM EDT Scheduled Telephone [facility] [address] [place] [address] Coordinator, [facility] [address] [place] [address] 12/25/2023 12:30 PM EDT Telemedicine Psychology [facility] [address] [place] [address] Jovita Aquino LCSW [address] [place] [address] 01/02/2024 12:30 PM EDT [facility] Visit [facility] [place] [place] [address] Jaycee Sorto, RN [address] [facility] [place] [address] 01/03/2024 9:00 AM EDT Office Visit Ophthalmology, [facility] [address] [facility] [place] [address] Ramsey Burnett, DO [address] [facility] [place] [address] 01/08/2024 9:20 AM EDT Office Visit Nephrology, [facility] [address] [place] [place] [address] Fidelina Baumann MD [address] [place] [address] 01/08/2024 11:30 AM EDT Office Visit Cardiology, [facility] [address] [facility] [place] [address] Roberto Carlos Muniz, [place] [address] [place] [address] 01/24/2024 2:45 PM EDT Office Visit Ophthalmology, [facility] [address] [facility] [place] [address] Ramsey Burnett, DO [address] [facility] [place] [address] 02/01/2024 9:00 AM EDT Office Visit Pharmacy, [facility] [address] [place] [address] Pharmacist1, [facility] [address] [place] [address] 02/04/2024 10:20 AM EDT Office Visit Family Practice [facility] [address] [facility] [place] [address] Deon Rausch MD [address] [place] [address] 06/03/2024 9:00 AM EDT Telemedicine Psychiatry, [place] [address] [place] [address] Janice Atwood MD [address] [place] [address] Scheduled Procedures Name Priority Associated Diagnoses Date/Ti [...] Additional history exists CKD PHOS USE SMARTSET 67788 06/18/202405/26, 06/16/2023, 06/15/2023, Additional history exists Diabetic Eye Exam 09/13/2024 09/13/2023, , 09/13/2023, Additional history exists B-12 09/18/2024 09/18/2023, 08/24, 2020, Additional history exists CKD HGB USE SMARTSET 80758 10/15/202410/15, 07/31/2023, 07/31/2023, Additional history exists TSH [...] this encounter Medical Devices Implanted Type Area Grievance Manager Device Identifier Shelf Expiration Date Model / Serial / Lot Cath Roselia Single Lumen - [id number] Implanted:Qty : 1 on 03/12/2008 at OR [facility] Left: Chest [facility] *DO NOT USE* 07/25/2012 21-4053-24 / / [id number] Sut Steel 6 M654g - [id number] Implanted:Qty : 1 on 11/01/2010 at OR [facility] N/A: Chest DO NOT USE M654G / / Sut Steel 6 M654g - [id number] Implanted:Qty : 1 on 11/01/2010 at OR [facility] N/A: Chest DO NOT USE M654G / / Valve Tarsha Aortic [id number] - [id number] Implanted:Qty : 1 on 11/01/2010 at OR [facility] N/A: Heart [employer] DANIEL 05/20/2012 2800TFX-25 / / [id number] Mesh Soft [id number] - [id number] Implanted:Qty : 1 on 10/10/2019 by Gigi Hendrickson MD at [place] [facility] N/A: Abdomen CR BARD : DAVOL [id number] 05/21/2024 [id number] / / [id number] Lens 22.5 Sn60wf - [id number] - [id number] Implanted:Qty : 1 on 09/15/2020 by Renaldo Cook, Cece Acosta MD at [facility] Right: Eye IVA : SURGICAL [id number] 05/13/2025 SN60 WF.225 / [id number] / [id number] Lens 21.5 Sn60wf - [id number] - [id number] Implanted:Qty : 1 on 12/19/2023 by Ramsey Burnett DO at OR [facility] Left: Eye IVA : SURGICAL 12/03/2024 SN60WF.2 15 / [id number] / documented as of this encounter Visit Diagnoses Diagnosis Urinary incontinence, nocturnal enuresis- Primary Nocturnal enuresis documented in this encounter Advance Directives Latest [...] the patient have Health Care Power of Net Fisher? No Full Code 10/10/2019 8:40 AM 10/10/2019 5:53 PM This order reflects the patients wishes and were consensually agreed upon. Healthcare Agents on File Name Relationship Healthcare Agent Relationshi p Communication Gigi Rose Adult Child Health Care Repr esentative (appointed verbally by patient or by statute hierarchy) Care Teams Video Player Mechanic Relationship Specialty Start Date End Date Deon Rausch MD [address] [place] [address] PCP - General Family Medicine 02/12/20 documented as of this encounter
--- OUTSIDE RECORDS SUMMARY | 2024-06-05 15:03 | External Medical Summary | Summary of Care ---
Author Name Unknown Organization [facility] Address [address] [place] [address] Phone [phone] Care Team Providers Care Tongue And Groove Machine Operator Name Role Phone Gregory Rausch MD Primary Care Provider [phone] [phone] Reason for Visit * Reason Onset Date Comments [facility]: Maintenance 12/20/2023 Encounter Details Date Type Department Care Team (Late st Contact Info) Description 12/20/2023 12:15 PM EDT Scheduled Telephone [facility], [facility] [address] [place] [address] Coordinator, [facility] [address] [place] [address] Allergies Active Allergy Reactions Criticality Noted Date [...] hypoglycemia E11.9 100 Tab 3 07/06/2021 Active Stand OfferTouch Verio w/Device Kit Use up to 4 times a day E11.9 1 Kit 0 02/10/2022 Active Stand OfferTouch Delica Lancets 33G TEST 4 TIMES DAILY [...] OTHER MEDICATIONS 90 Tablet 2 05/05/2023 Active Stand OfferTouch Verio In Vitro Strip (Glucose Blood) Use [...] daily. 400 g 3 10/02/2023 Active Nystatin 098181 UNIT/GM External Powder (Nystop)Indications:C andidal intertrigo Apply [...] 12/21/2016 Diabetes mellitus 01/05/2014 12/21/2016 LEYVA RESEARCH OTHER*[id number] 01/05/2014 12/21/2016 Axillary pain 11/03/2013 12/21/2016 Obesity, [...] Medical Record [facility] V710 Clinical Trial*[id number] 12/22/2010 04/14/2011 S/P aortic valve replacement 12/01/2010 08/26/2011 S/P AORTIC VALVE REPLACEMENT - #25 pericardial Mc valve 11/01/2010 06/28/2018 Overview: Aortic valve replacement with #25 pericardial Mc valve, model 2800TFX, serial number [id number] (Dr. Walker) [facility] V710 Clinical Trial*[id number] 10/18/2010 11/21/2010 Body mass index (BMI) of [...] 06/07/2018,01/08/20 18,12/05/2017,06/15,10/27/2013,09/12/2013 Pneumococcal Conjugate Vacci ne, 20-valent (Vpaylfb13) 06/22/2023 Pneumococcal Polysaccharide PPV23 (Pneumovax) 01/02/2008 Seasonal [...] Telephone Encounter - Angelica Welch RN - 12/20/2023 1:48 PM EDT [facility] Telephonic Nurse Follow-Up Call [facility] Subprogram: Focused Care Management (3-9 months) Follow Up Call Type: Routine follow up call / Status Check Acute issue requiring follow-up call: Other: follow up on cdiff symptoms. On Vancomycin taper. How are symptoms? Objective: 12/19/2023 3:10 PM 12/19/2023 2:45 PM 12/19/2023 2:28 PM 12/19/2023 12:36 PM 12/11/2023 9:26 AM VITALS ACROSS ENCOUNTERS BP 121/61 119/64 121/62 148/66 Pulse 105 108 90 90 Weight 68.9 kg 68.9 kg BMI 30.68 30.68 BMI 30.68 kg/m2 30.7 kg/m2 Condition Status: UTC .left vm requesting return call. Disposition: Follow up call scheduled for tomorrow with [facility] Bodybuilder Future Visits Scheduled: Future Appointments-next 60 days Date/Time Provider Specialty Dept Phone 12/25/2023 12:30 PM Jovita Aquino [facility] Psychology [phone] 01/02/2024 12:30 PM Jaycee Sorto RN [facility] [phone] 01/03/2024 9:00 AM Ramsey Burnett DO Ophthalmology [phone] 01/08/2024 9:20 AM (Arrive by 9:05 AM) Fidelina Baumann MD Nephrology [phone] 01/08/2024 11:30 AM (Arrive by 11:15 AM) Roberto Carlos Muniz DO Cardiology [phone] 01/24/2024 2:45 PM Ramsey Burnett DO Ophthalmology [phone] 02/01/2024 9:00 AM Pharmacist, [facility] [phone] 02/04/2024 10:20 AM (Arrive by 10:05 AM) Gregory Rausch MD Family Medicine [phone] 06/03/2024 9:00 AM Janice Atwood MD Psychiatry [phone] Angelica Welch RN documented in this encounter Plan of Treatment Upcoming Encounters Date Type Department Care Team (Late st Contact Info) Description 12/21/2023 2:30 PM EDT Scheduled Telephone [facility], [facility] [address] [place] [address] Coordinator, [facility] [address] [place] [address] 12/25/2023 12:30 PM EDT Telemedicine Psychology [facility] [address] [place] [address] Jovita Aquino, [employer] [address] [place] [address] 01/02/2024 12:30 PM EDT Home Visit [facility], [facility] [address] [place] [address] Jaycee Sorto RN [address] [place] [address] 01/03/2024 9:00 AM EDT Office Visit Ophthalmology, [facility] [address] [facility] [place] [address] Ramsey Burnett, [place] [address] 01/08/2024 9:20 AM EDT Office Visit Nephrology, [facility] [address] [facility] [address] Fidelina Baumann MD [address] [facility] [address] 01/08/2024 11:30 AM EDT Office Visit Cardiology, [facility] [address] [facility] [place] [address] Roberto Carlos Muniz, DO [address] [facility] [place] [address] 01/24/2024 2:45 PM EDT Office Visit Ophthalmology, [facility] [address] [facility] [place] [address] Ramsey Burnett, DO [address] [place] [address] 02/01/2024 9:00 AM EDT Office Visit Pharmacy, [facility] [address] [facility] [address] Pharmacist1, [facility] [address] [place] [address] 02/04/2024 10:20 AM EDT Office Visit Family [facility] [address] [place] [address] Gregory Rausch MD [address] [place] [address] 06/03/2024 9:00 AM EDT Telemedicine Psychiatry, [place] [address] [place] [address] Janice Atwood MD [address] [place], [place] [id number] Scheduled Procedures Name Priority Associated Diagnoses Date/Ti [...] Additional history exists CKD PHOS USE SMARTSET 86418 06/18/20242 01/2023, 06/16/2023, 06/15/2023, Additional history exists Diabetic Eye Exam 09/13/2024 09/13/2023, , 09/13/2023, Additional history exists B-12 09/18/2024 09/18/2023, 08/24, 2020, Additional history exists CKD HGB USE SMARTSET 56086 10/15/202410/15, 07/31/2023, 07/31/2023, Additional history exists TSH [...] this encounter Medical Devices Implanted Type Area Pe Electrical Engineer Device Identifier Shelf Expiration Date Model / Serial / Lot Cath Roselia Single Lumen - [id number] Implanted:Qty : 1 on 03/12/2008 at OR [facility] Left: Chest [facility] *DO NOT USE* 07/25/2012 21-4053-24 / / [id number] Sut Steel 6 M654g - [id number] Implanted:Qty : 1 on 11/01/2010 at OR [facility] N/A: Chest DO NOT USE M654G / / Sut Steel 6 M654g - [id number] Implanted:Qty : 1 on 11/01/2010 at OR [facility] N/A: Chest DO NOT USE M654G / / Valve Tarsha Aortic [id number] - [id number] Implanted:Qty : 1 on 11/01/2010 at OR [facility] N/A: Heart [employer] DANIEL 05/20/2012 2800TFX-25 / / [id number] Mesh Soft [id number] - [id number] Implanted:Qty : 1 on 10/10/2019 by Gigi Hendrickson MD [place] [facility] [place]/A: Abdomen CR BARD : DAVOL [id number] 05/21/2024 [id number] / / [id number] Lens 22.5 Sn60wf - [id number] - [id number] Implanted:Qty : 1 on 09/15/2020 by Renaldo Cook, Cece Acosta MD at [facility] Right: Eye IVA : SURGICAL [id number] 05/13/2025 SN60 WF.225 / [id number] / [id number] Lens 21.5 Sn60wf - [id number] - [id number] Implanted:Qty : 1 on 12/19/2023 by Ramsey Burnett DO at [facility] Left: Eye IVA : SURGICAL 12/03/2024 SN60WF.2 15 / [id number] [id number] / documented as of this encounter [...] the patient have Health Care Power of Fleet Sales Manager? No Full Code 10/10/2019 8:40 AM 10/10/2019 5:53 PM This order reflects the patients wishes and were consensually agreed upon. Healthcare Agents on File Name Relationship Healthcare Agent Relationshi p Communication Gigi Rose Adult Child Health Care Repr esentative (appointed verbally by patient or by statute hierarchy) Care Teams Tongue And Groove Machine Operator Relationship Specialty Start Date End Date Gregory Rausch MD [address] [place] [address] PCP - General Family Medicine 02/12/20 documented as of this encounter
--- OUTSIDE RECORDS SUMMARY | 2024-06-05 15:04 | External Medical Summary | Summary of Care ---
Author Name Unknown Organization [facility] Address [address] [place] [address] Phone [phone] Care Team Providers Care Pharmacologist Name Role Phone Gregory Rausch MD Primary Care Provider [phone] Reason for Visit * Reason Onset Date Comments Order Request 12/13/2023 Encounter Details Date Type Department Care Team (Late st Contact Info) Description 12/13/2023 Telephone Family Practice [facility] [address] [place] [address] Gregory Rausch MD [address] [facility] [place] [address] Order Request Allergies Active [...] ER 10 MEQ Oral Tablet Extended ReleaseIndications:Ac habematolel on chronic heart failure with preserved ejection [...] once daily. 400 g 10/02/2023 Active Nystatin 782729 UNIT/GM External Powder (Nystop)Indications:C andidal intertrigo Apply [...] 7.0% ([facility]) Use as directed. Use 1 transmitter every 90 days E 11.9 1 Each 3 10/18/2023 Active Dexcom G6 SensorIndications:Typ e 2 diabetes mellitus with hemoglobin A1c goal of less than 7.0% ([facility]) Use as directed. Use 1 [...] eye 09/28/2020 Coronary artery disease invo lving cherokee coronary artery of cherokee heart without angina pectoris 12/16/2019 Last Assessment [...] 12/21/2016 Diabetes mellitus 01/05/2014 12/21/2016 LEYVA RESEARCH OTHER*[id number] 01/05/2014 12/21/2016 Axillary pain 11/03/2013 12/21/2016 Obesity, [...] [facility] V710 Clinical Trial*[id number] 12/22/2010 04/14/2011 S/P aortic valve replacement 12/01/2010 08/26/2011 S/P AORTIC VALVE REPLACEMENT - #25 pericardial Mc valve 11/01/2010 06/28/2018 Overview: Aortic valve replacement with #25 pericardial Mc valve, model 2800TFX, serial number [id number] (Dr. Walker) [facility] V710 Clinical Trial*[id number] 10/18/2010 11/21/2010 Body mass index (BMI) of [...] 06/07/2018,01/08/20 18,12/05/2017,06/15,10/27/2013,09/12/2013 Pneumococcal Conjugate Vacci ne, 20-valent ([id number]) 06/22/2023 Pneumococcal Polysaccharide PPV23 (Pneumovax) 01/02/2008 Seasonal [...] encounter Miscellaneous Notes * Addendum Note - Angelica Yadav LPN - 12/14/2023 9:34 AM EDTAddended by: ANGELICA YADAV on: 12/14/2023 09:34 AM Modules accepted: Orders * Telephone Encounter - Pinky Avelar, portfolio management marketing - 12/13/2023 1:26 PM EDT An order was requested for this patient. Name of Requestor: Jovita Rose Order Request: pull ups x large and pads for the bed Diagnosis/Reason for Request: Does the order need to be faxed somewhere? If so, where?: Fax Number, if applicable: Call Back Number: [phone] Thank you for your assistance Pinky Avelar Manager Crisis II [facility] ([facility]) (Formerly Telepharmacy) 12/13/2023,1:26 PM documented in this encounter Plan of Treatment Upcoming Encounters Date Type Department Care Team (Latest Contact Info) Description 2023 11:30 AM EDT Telemedicine Psychology [facility] [address] [place] [address] Jovita Aquino, [facility] [address] [place] [address] 12/19/2023 1:53 PM EDT Hospital Encounter [facility], Operating Room [facility] [address] [place] [address] Ramsey Burnett, DO [address] [place] [address] 12/19/2023 1:53 PM EDT - 12/19/2023 2:46 PM EDT Surgery [facility], Operating Room [facility] [address] [place] [address] Ramsey Burnett, [address] [place] [address] LEFT EXTRACAPSULAR CATARACT REMOVAL COMPLEX WITH IOL 12/20/2023 8:30 AM EDT Office Visit Ophthalmology, [facility] [address] [place] [address] Ramsey Burnett DO [address] [place] [address] 12/21/2023 6:10 PM EDT Pharmacy Pharmacy, [facility] [address] [facility] [place] [address] Pharmacist2, [facility] [address] [facility] [place] [address] 01/02/2024 12:30 PM EDT Home Visit [place] at [place], [facility] [place] [address] Jaycee Sorto, RN [address] [place] [address] 01/03/2024 9:00 AM EDT Office Visit Ophthalmology, [facility] [address] [facility] [place] [address] Ramsey Burnett, DO [address] [facility] [place] [address] 01/08/2024 9:20 AM EDT Office Visit Nephrology, [facility] [address] [facility] [place] [address] Fidelina Baumann MD [address] [place] [address] 01/08/2024 11:30 AM EDT Office Visit Cardiology, [facility] [address] [facility] [place] [address] Roberto Carlos Muniz DO [address] [facility] [place] [address] 01/24/2024 2:45 PM EDT Office Visit Ophthalmology, [facility] [address] [facility] [place] [address] Ramsey Burnett, DO [address] [facility] [place] [address] 02/04/2024 10:20 AM EDT Office Visit Family Practice [facility] [address] [facility] [place] [address] Gregory Rausch MD [address] [facility] [place] [address] 06/03/2024 9:00 AM EDT Telemedicine Psychiatry, [place] [address] [place] [address] Janice Atwood MD [address] [place] [address] Scheduled Procedures Name Priority Associated Diagnoses Date/Ti [...] Additional history exists CKD PHOS USE SMARTSET 03681 06/18/2024 0901/2023, 06/16/2023, 06/15/2023, Additional history exists Diabetic Eye Exam 09/13/2024 09/13/2023, , 09/13/2023, Additional history exists B-12 09/18/2024 09/18/2023, 08/24, 2020, Additional history exists CKD HGB USE SMARTSET 16634 10/15/202410/15, 07/31/2023, 07/31/2023, Additional history exists TSH [...] this encounter Medical Devices Implanted Type Area Hammer Repairer Device Identifier Shelf Expiration Date Model / Serial / Lot Cath Roselia Single Lumen - [id number] Implanted:Qty : 1 on 03/12/2008 at OR [facility] Left: Chest [facility] *DO NOT USE* 07/25/2012 21-4053-24 / / [id number] Sut Steel 6 M654g - [id number] Implanted:Qty : 1 on 11/01/2010 at OR [facility] N/A: Chest DO NOT USE M654G / / Sut Steel 6 M654g - [id number] Implanted:Qty : 1 on 11/01/2010 at OR [facility] N/A: Chest DO NOT USE M654G / / Valve Tarsha Aortic [id number] - [id number] Implanted:Qty : 1 on 11/01/2010 at OR [facility] N/A: Heart [employer] DANIEL 05/20/2012 2800TFX-25 / / [id number] Mesh Soft 84c82fg - [id number] Implanted:Qty : 1 on 10/10/2019 by Gigi Hendrickson MD at OR [facility] N/A: Abdomen CR BARD : DAVOL [id number] 05/21/2024 [id number] / / [id number] Lens 22.5 Sn60wf - [id number] - [id number] Implanted:Qty : 1 on 09/15/2020 by Renaldo Cook, Cece Acosta MD at [facility] Right: Eye IVA : SURGICAL [id number] 05/13/2025 SN60 WF.225 / [id number] / [id number] documented as of this encounter Advance [...] patient have Health Care Power of Wood Patternmaker Apprentice? No Full Code 10/10/2019 8:40 AM 10/10/2019 5:53 PM This order reflects the patients wishes and were consensually agreed upon. Full Code 11/06/2017 4:55 PM 11/07/2017 7:14 PM This order reflects the patients wishes and were consensually agreed upon. Healthcare Agents on File Name Relationship Healthcare Agent Replaced By [facility] Communication Gigi Rose Adult Child Health Care Repr esentative (appointed verbally by patient or by statute hierarchy) Care Teams Pharmacologist Relationship Specialty Start Date End Date Gregory Rausch MD [address] [place] [address] PCP - General Family Medicine 02/12/20 documented as of this encounter
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
--- OUTSIDE RECORDS SUMMARY | 2024-06-05 15:04 | External Medical Summary | Summary of Care ---
Author Name Unknown Organization [facility] Address [address] [place] [address] Phone [phone] Care Team Providers Care Head Cd Reactor Operator Name Role Phone Gregory Rausch MD Primary Care Provider [phone] Reason for Visit * Reason Onset Date Comments Order Request 12/13/2023 Encounter Details Date Type Department Care Team (Late st Contact Info) Description 12/13/2023 Telephone [facility] [address] [place] [address] Gregory Rausch MD [address] [facility] [place] [address] Order Request Allergies [...] ER 10 MEQ Oral Tablet Extended ReleaseIndications:Ac [place] on chronic heart failure with preserved ejection [...] once daily. 400 g 10/02/2023 Active Nystatin 718959 UNIT/GM External Powder (Nystop)Indications:C andidal intertrigo Apply [...] [facility]),Type 2 diabetes mellitus with diabetic mononeuropathy, with long-term current use of insulin ([facility]),Type 2 diabetes mellitus with both eyes affected by mild nonproliferative retinopathy and macular edema, with long-term current use of insulin ([facility]),Type 2 diabetes mellitus with stage 3a chronic kidney disease, with long-term current use of insulin ([facility]) Inject 2 mg under the skin [...] eye 09/28/2020 Coronary artery disease invo lving eagle coronary artery of eagle heart without angina pectoris 12/16/2019 Last Assessment [...] 12/21/2016 Diabetes mellitus 01/05/2014 12/21/2016 LEYVA RESEARCH OTHER*[id number] 01/05/2014 12/21/2016 Axillary pain 11/03/2013 12/21/2016 Obesity, [...] cath 09/201008/26/2011 12/21/2016 FOLLOWING SURGERY, UNSPECIFI ED ([facility] 08/25/2011) 08/26/2011 12/21/2016 [...] Record [facility] V710 Clinical Trial*[id number] 12/22/2010 04/14/2011 S/P aortic valve replacement 12/01/2010 08/26/2011 S/P AORTIC VALVE REPLACEMENT - #25 pericardial Mc valve 11/01/2010 06/28/2018 Overview: Aortic valve replacement with #25 pericardial Mc valve, model 2800TFX, serial number [id number] (Dr. Walker) [facility] V710 Clinical Trial*[id number] 10/18/2010 11/21/2010 Body mass index (BMI) of [...] 06/07/2018,01/08/20 18,12/05/2017,06/15,10/27/2013,09/12/2013 Pneumococcal Conjugate Vacci ne, 20-valent ([id number]) 06/22/2023 Pneumococcal Polysaccharide PPV23 (Pneumovax) 01/02/2008 Seasonal [...] Orders * Telephone Encounter - Pinky Avelar, luncheonette manager - 12/13/2023 1:26 PM EDT An order was requested for this patient. Name of Requestor: Jovita Rose Order Request: pull ups x large and pads for the bed Diagnosis/Reason for Request: Does the order need to be faxed somewhere? If so, where?: Fax Number, if applicable: Call Back Number: [phone] Thank you for your assistance Pinky Avelar Script Writer II [facility] ([facility]) (Formerly Telepharmacy) 12/13/2023,1:26 PM documented in this encounter Plan of Treatment Upcoming Encounters Date Type Department Care Team (Latest Contact Info) Description 2023 11:30 AM EDT Telemed[facility] [address] [place] [address] Jovita Aquino, [facility] [address] [place] [address] 12/19/2023 1:53 PM EDT Hospital Encounter [facility], Operating Room [facility] [address] [place] [address] Ramsey Burnett, DO [address] [place] [address] 12/19/2023 1:53 PM EDT - 12/19/2023 2:46 PM EDT Surgery [facility], Operating Room [facility] [address] [place] [address] Ramsey Burnett, [address] [place] [address] LEFT EXTRACAPSULAR CATARACT REMOVAL COMPLEX WITH IOL 12/20/2023 8:30 AM EDT Office Visit Ophthal[facility], [facility] [address] [place] [address] Ramsey Burnett DO [address] [place] [address] 12/21/2023 6:10 PM EDT Pharmacy Pharmacy, [facility] [address] [place] [address] Pharmacist2, [facility] [address] [place] [address] 01/02/2024 12:30 PM EDT Home Visit [place] at [place], [facility] [address] [facility] [place] [address] Jaycee Sorto, RN [address] [place] [address] 01/03/2024 9:00 AM EDT Office Visit Ophthalmology, [facility] [address] [facility] [place] [address] Ramsey Burnett, DO [address] [facility] [place] [address] 01/08/2024 9:20 AM EDT Office Visit Nephrology, [facility] [address] [place] [address] Fidelina Baumann MD [address] [place] [address] 01/08/2024 11:30 AM EDT Office Visit Cardiology, [facility] [address] [facility] [place] [address] Roberto Carlos Muniz DO [address] [facility] [place] [address] 01/24/2024 2:45 PM EDT Office Visit Ophthalmology, [facility] [address] [facility] [place] [address] Ramsey Burnett, DO [address] [facility] [place] [address] 02/04/2024 10:20 AM EDT Office Visit [facility] [address] [facility] [place] [address] Gregory Rausch MD [address] [facility] [place] [address] 06/03/2024 9:00 AM EDT Telemedicine Psychiatry, [place] [address] [place] [address] Janice Atwood MD [address] [place] [address] Scheduled Procedures Name Priority Associated Diagnoses Date/Ti [...] Additional history exists CKD PHOS USE SMARTSET 19230 06/18/2024 0901/2023, 06/16/2023, 06/15/2023, Additional history exists Diabetic Eye Exam 09/13/2024 09/13/2023, , 09/13/2023, Additional history exists B-12 09/18/2024 09/18/2023, 08/24, 2020, Additional history exists CKD HGB USE SMARTSET 60894 10/15/202410/15, 07/31/2023, 07/31/2023, Additional history exists TSH [...] this encounter Medical Devices Implanted Type Area Cement Breaker Device Identifier Shelf Expiration Date Model / Serial / Lot Cath Roselia Single Lumen - [id number] Implanted:Qty : 1 on 03/12/2008 at OR [facility] Left: Chest [facility] *DO NOT USE* 07/25/2012 21-4053-24 / / [id number] Sut Steel 6 M654g - [id number] Implanted:Qty : 1 on 11/01/2010 at OR [facility] N/A: Chest DO NOT USE M654G / / Sut Steel 6 M654g - [id number] Implanted:Qty : 1 on 11/01/2010 at OR [facility] N/A: Chest DO NOT USE M654G / / Valve Tarsha Aortic [id number] - [id number] Implanted:Qty : 1 on 11/01/2010 at OR [facility] N/A: Heart [employer] DANIEL 05/20/2012 2800TFX-25 / / [id number] Mesh Soft 30w00rr - [id number] Implanted:Qty : 1 on 10/10/2019 by Gigi Hendrickson MD at [facility] N/A: Abdomen CR BARD : DAVOL [id number] 05/21/2024 [id number] / / [id number] Lens 22.5 Sn60wf - [id number] - [id number] Implanted:Qty : 1 on 09/15/2020 by Renaldo Cook, Cece Acosta MD at OR [facility] Right: Eye IVA : SURGICAL [id number] 05/13/2025 SN60 WF.225 / [id number] / [id number] documented as of this encounter Advance [...] patient have Health Care Power of Personal Banking Assistant? No Full Code 10/10/2019 8:40 AM 10/10/2019 5:53 PM This order reflects the patients wishes and were consensually agreed upon. Full Code 11/06/2017 4:55 PM 11/07/2017 7:14 PM This order reflects the patients wishes and were consensually agreed upon. Healthcare Agents on File Name Relationship Healthcare Agent [facility] p Communication Gigi Rose Adult Child Health Care Repr esentative (appointed verbally by patient or by statute hierarchy) Care Teams Head Cd Reactor Operator Relationship Specialty Start Date End Date Gregory Rausch MD [address] [place] [address] PCP - General Family Medicine 02/12/20 documented as of this encounter
--- OUTSIDE RECORDS SUMMARY | 2024-06-05 15:04 | External Medical Summary | Summary of Care ---
Author Name Unknown Organization [facility] Address [address] [place] [address] Phone [phone] Care Team Providers Care Heavy Line Technician Name Role Phone Gregory Rausch MD Primary Care Provider [phone] Reason for Visit * Reason Onset Date Comments Appointment 12/11/2023 Encounter Details Date Type Department Care Team (Late st Contact Info) Description 12/11/2023 Telephone [facility] [place] [address] [place] [address] Anjali Alanis, [facility] [address] [place] [address] Appointment Allergies Active Allergy Reactions Criticality Noted [...] ER 10 MEQ Oral Tablet Extended ReleaseIndications:Ac [place] on chronic heart failure with preserved ejection [...] Heart failure, systolic, due to idiopathic cardiomyopathy ([facility]),S/P aortic valve replacement,HTN, goal below [...] goal of less than 7.0% ([facility]) Use up to 50 units per day in Omnipod. 5 Each 09/11/2023 Active BD Insulin Syringe 25G X [...] once daily. 400 g 10/02/2023 Active Nystatin 553074 UNIT/GM External Powder (Nystop)Indications:C andidal intertrigo Apply [...] ([facility]),Type 2 diabetes mellitus with diabetic mononeuropathy, with long-term current use of insulin ([facility]),Type 2 diabetes mellitus with both eyes affected by mild nonproliferative retinopathy and macular edema, with long-term current use of insulin ([facility]),Type 2 diabetes mellitus with stage 3a chronic kidney disease, with long-term current use of insulin ([facility]) Inject 2 mg under the skin once a week. 9 mL 3 10/01/2023 Active Additional Information Patient taking differently:2 mg Subcutaneous QWEEK,Indications: weekly on fridays, Reported on 11/26/2023 traZODone HCl 100 MG Oral Tablet (Desyrel) Take 1 Tablet by mouth at bedtime. 0 Active Dexcom G6 TransmitterIndication s:Type 2 diabetes mellitus with hemoglobin A1c goal of less than 7.0% ([facility]) Use as directed. Use 1 transmitter every 90 days E 11.9 1 Each 10/18/2023 Active Dexcom G6 SensorIndications:Typ e 2 diabetes mellitus with hemoglobin A1c goal of less than 7.0% ([facility]) Use as directed. Use 1 [...] 14 days. 68 Capsule 0 12/03/2023 Active documented as of this encounter (statuses [...] 12/21/2016 Diabetes mellitus 01/05/2014 12/21/2016 LEYVA RESEARCH OTHER*[id number] 01/05/2014 12/21/2016 Axillary pain 11/03/2013 12/21/2016 Obesity, [...] cath 09/201008/26/2011 12/21/2016 FOLLOWING [facility]) 08/26/2011 12/21/2016 ADVANCE DIRECTIVE INFORMATION 04/17/2011 12/21/2016 Overview: Yes, Patient instructed to provide copy of advance directive for provider to review and to be scanned into Electronic Medical Record ADVANCE DIRECTIVE INFORMATION 03/01/2011 12/21/2016 Overview: Yes, Patient instructed to provide copy of advance directive for provider to review and to be scanned into Electronic Medical Record [facility] [place] V710 Clinical Trial*[id number] 12/22/2010 04/14/2011 S/P aortic valve replacement 12/01/2010 08/26/2011 S/P AORTIC VALVE REPLACEMENT - #25 pericardial Mc valve 11/01/2010 06/28/2018 Overview: Aortic valve replacement with #25 pericardial Mc valve, model 2800TFX, serial number [id number] (Dr. Walker) [place] [id number] Clinical Trial*[id number] 10/18/2010 11/21/2010 Body mass index (BMI) of [...] 06/07/2018,01/08/20 18,12/05/2017,06/15,10/27/2013,09/12/2013 Pneumococcal Conjugate Vacci ne, 20-valent ([id number]) 06/22/2023 Pneumococcal Polysaccharide PPV23 (Pneumovax) 01/02/2008 Seasonal [...] Miscellaneous Notes * Telephone Encounter - Cindi Dennison O[facility] - 12/11/2023 11:36 AM EDT Referral Details after Behavioral Health Intake: Referral: Internal Psych Resource: Per Anjali Alanis LCSW, patient referred for psychiatry and psychology, patient scheduled and in agreement with visits. DANYELLE Braun documented in this encounter Plan of Treatment Upcoming Encounters Date Type Department Care Team (Latest Contact Info) Description 12/12/2023 1:00 PM EDT Telemedicine Psychiatry, [facility] [address] [place] [address] Josh Almeida MD [address] [place] [address] 2023 11:30 AM EDT Telemedicine Psychology [address] [place] [address] Jovita Aquino, SAND CONTROL WORKER [address] [place] [address] 12/19/2023 1:53 PM EDT Hospital Encounter [facility], Operating Room [facility] [address] [place] [address] Ramsey Burnett, DO [address] [place] [address] 12/19/2023 1:53 PM EDT - 12/19/2023 2:46 PM EDT Surgery [facility], Operating Room [facility] [address] [place] [address] Ramsey Burnett, DO [address] [place] [address] LEFT EXTRACAPSULAR CATARACT REMOVAL COMPLEX WITH IOL 12/20/2023 8:30 AM EDT Office Visit Ophthalmology, [facility] [address] [place] [address] Ramsey Burnett, DO [address] [place] [address] 12/21/2023 6:10 PM EDT Pharmacy Pharmacy, [facility] [address] [facility] [place] [address] Pharmacist2, [facility] [address] [facility] [place] [address] 01/02/2024 12:30 PM EDT Home Visit Ad[place] at [place], [facility] [address] [place] [address] Jaycee Sorto, RN [address] [place] [address] 01/03/2024 9:00 AM EDT Office Visit Ophthalmology, [facility] [address] [place] [address] Ramsey Burnett, DO [address] [facility] [place] [address] 01/08/2024 9:20 AM EDT Office Visit Nephrology, [facility] [address] [facility] [place] [address] Fidelina Baumann MD [address] [facility] [place] [address] 01/08/2024 11:30 AM EDT Office Visit Cardiology, [facility] [address] [place] [address] Roberto Carlos Muniz, [address] [place] [address] 01/24/2024 2:45 PM EDT Office Visit Ophthalmology, [facility] [address] [place] [address] Ramsey Burnett, DO [address] [place] [address] 02/04/2024 10:20 AM EDT Office Visit Family Practice [facility] [address] [facility] [place] [address] Gregory Rausch MD [address] [facility] [place] [address] 06/03/2024 9:00 AM EDT Telemedicine Psychiatry, [place] [address] [place] [address] Janice Atwood MD [address] [place] [address] Scheduled Procedures Name Priority Associated Diagnoses Date/Ti [...] Vaccine (2022- season) 2023 10/25/2021, 02/16/2021, 01/18/2021 Albumin/Creatinine Ratio 03/09/2024 023, 12/22/2022, 05/05/2021, Additional history exists HbA1c 03/19/2024 09/18/2023, 11/0 03/2023, 04/09/2023, Additional history exists GFR 04/14/2024 10/15/2023, 11/0 05/2023, 07/31/2023, Additional history exists CKD PHOS USE SMARTSET 36924 06/18/202405/26, 06/16/2023, 06/15/2023, Additional history exists Diabetic Eye Exam 09/13/2024 09/13/2023, , 09/13/2023, Additional history exists B-12 09/18/2024 09/18/2023, 08/24, 2020, Additional history exists CKD HGB USE SMARTSET 37464 10/15/202410/15, 07/31/2023, 07/31/2023, Additional history exists TSH [...] encounter Medical Devices Implanted Type Area Rn Maternity Device Identifier Shelf Expiration Date Model / Serial / Lot Cath Roselia Single Lumen - [id number] Implanted:Qty : 1 on 03/12/2008 at OR [facility] Left: Chest [facility] *DO NOT USE* 07/25/2012 21-4053-24 / / [id number] Sut Steel 6 M654g - [id number] Implanted:Qty : 1 on 11/01/2010 at OR [facility] N/A: Chest DO NOT USE M654G / / Sut Steel 6 M654g - [id number] Implanted:Qty : 1 on 11/01/2010 at OR [facility] N/A: Chest DO NOT USE M654G / / Valve Tarsha Aortic [id number] - [id number] Implanted:Qty : 1 on 11/01/2010 at OR [facility] N/A: Heart [employer] 05/20/2012 2800TFX-25 / / [id number] Mesh Soft 14j17au - [id number] Implanted:Qty : 1 on 10/10/2019 by Gigi Hendrickson MD at OR [facility] N/A: Abdomen CR BARD : DAVOL [id number] 05/21/2024 [id number] / / [id number] Lens 22.5 Sn60wf - [id number] - [id number] Implanted:Qty : 1 on 09/15/2020 by Cece Roland MD at OR [facility] Right: Eye IVA : SURGICAL [id number] 05/13/2025 SN60 WF.225 / [id number] documented as of this encounter Advance [...] the patient have Health Care Power of All Purpose Clerk? No Full Code 10/10/2019 8:40 AM 10/10/2019 5:53 PM This order reflects the patients wishes and were consensually agreed upon. Full Code 11/06/2017 4:55 PM 11/07/2017 7:14 PM This order reflects the patients wishes and were consensually agreed upon. Healthcare Agents on File Name Relationship Healthcare Agent Relationshi p Communication Gigi Gutierrez [facility] Adult [facility] Health Care Repr esentative (appointed verbally by patient or by statute hierarchy) Care Teams Heavy Line Technician Relationship Specialty Start Date End Date Gregory Rausch MD [address] [place] [address] PCP - General Family Medicine 02/12/20 documented as of this encounter
--- OUTSIDE RECORDS SUMMARY | 2024-06-05 15:04 | External Medical Summary | Summary of Care ---
Author Name Unknown Organization [facility] Address [address] [place] [address] Phone [phone] Care Team Providers Care Accreditation Coordinator Name Role Phone Gregory Rausch MD Primary Care Provider [phone] Reason for Visit * Reason Comments Evaluation Psychiatric * - Authorized Specialty Diagnoses / Procedures Referred By Jasonac t Referred To Contact Referral ID Status Reason Start Date Expiration Date V isits Requested Visits Authorized [id number] Authorized 10/25/2023 10/23/[phone] Encounter Details Date Type Department Care Team (Late st Contact Info) Description 12/12/2023 1:00 PM EDT Telemedicine [facility] [address] [place] [address] Josh Almeida MD [address] [place] [address] Mood disorder (HCC)*; Anxiety disorder, unspecified type Allergies Active Allergy Reactions Criticality Noted Date Comments Adhesive Tape 07/02/2017 Can tolerate band-aids Glycerin Other (Please comment) 03/12/2008 Topical agents with glycein-burning & itching Lactose 12/09/2014 Dairy - gas Lisinopril Cough 01/21/2010 Monosodium Glutamate Edema Other 03/12/2008 Hands and feet Penicillins Rash 11/14/2007 documented as of this encounter (statuses as of 12/12/2023) Medications Medication Sig Dispensed Refills Start Date [...] hypoglycemia E11.9 100 Tab 3 07/06/2021 Active [employer]Touch Verio w/Device Kit Use up to 4 times a day E11.9 1 Kit 0 02/10/2022 Active [employer] Delica Lancets 33G TEST 4 TIMES DAILY [...] ER 10 MEQ Oral Tablet Extended ReleaseIndications:Ac ag[place] on chronic heart failure with preserved ejection [...] daily. 400 g 3 10/02/2023 Active Nystatin 908698 UNIT/GM External Powder (Nystop)Indications:C andidal intertrigo Apply [...] [facility]),Type 2 diabetes mellitus with diabetic mononeuropathy, with long-term current use of insulin ([facility]),Type 2 diabetes mellitus with both eyes affected by mild nonproliferative retinopathy and macular edema, with long-term current use of insulin ([facility]),Type 2 diabetes mellitus with stage 3a chronic kidney disease, with long-term current use of insulin ([facility]) Inject 2 mg under the skin [...] [facility]) Use as directed. Use 1 transmitter [...] underlying disease ([facility]) TAKE 1 CAPSULE BY MOUTH EVERY [...] as of this encounter (statuses as of 12/12/2023) Active Problems Problem Noted Date Diagnosed Date [...] eye 09/28/2020 Coronary artery disease invo lving kiana coronary artery of kiana heart without angina pectoris 12/16/2019 Last Assessment [...] as of this encounter (statuses as of 12/12/2023) Resolved Problems Problem Noted Date Diagnosed Date [...] 12/21/2016 Diabetes mellitus 01/05/2014 12/21/2016 LEYVA RESEARCH OTHER*[id number] 01/05/2014 12/21/2016 Axillary pain 11/03/2013 12/21/2016 Obesity, [...] Record [facility] V710 Clinical Trial*[id number] 12/22/2010 04/14/2011 S/P aortic valve replacement 12/01/2010 08/26/2011 S/P AORTIC VALVE REPLACEMENT - #25 pericardial Mc valve 11/01/2010 06/28/2018 Overview: Aortic valve replacement with #25 pericardial Mc valve, model [id number], serial number [id number] (Dr. Walker) [facility] V710 Clinical Trial*[id number] 10/18/2010 11/21/2010 Body mass index (BMI) of [...] as of this encounter (statuses as of 12/12/2023) Immunizations Name Administration Dates Next Due COVID-19 mRNA, LNP-s, No Pre serve, 2-Dose Series (Moderna) 10/25/2021,02/16/2021,01/18/2021 HEP A - Hepatitis A (Adult > 18 yrs) 06/07/2018, 12/05/2017 Hepatitis B, 20+ yrs 06/07/2018,01/08/20 18,12/05/2017,06/15,10/27/2013,09/12/2013 Pneumococcal Conjugate Vacci ne, 20-valent ([id number]) 06/22/2023 Pneumococcal Polysaccharide PPV23 (Pneumovax) 01/02/2008 Seasonal [...] this encounter Patient Instructions * Patient Instructions* Josh Almedia MD - 12/12/2023 3:16 PM EDT Start duloxetine 20 mg a day for mood documented in this encounter Progress Notes * Josh Almeida MD - 12/12/2023 1:19 PM EDT OUTPATIENT PSYCHIATRY URGENT CARE NOTE DIVISION OF PSYCHIATRY [place] [address] Name: Jovita Rose Date Patient was Seen: 12/12/2023 Patient location: Home. I was not in a hospital or clinic location. After connecting through televideo, patient was verified with two unique identifiers. Patient (or authorized legal patient registration representative) was then informed that this was a Telemedicine visit and that the exam was being conducted confidentially over secure lines with no one else present in the room. Methods to assure confidentiality weretaken. Patient acknowledged consent and understanding of privacy and security of the Telemedicine visit. The patient agreed to participate. Portions of this record may have been dictated using voice recognition software. Variations in spelling and in vocabulary are possible and unintentional. Some errors may not be recognized or corrected at time of dictation. URGENT CARE ENCOUNTER: Pt was informed that they are being seen on an urgent basis and that therefore today's appointment would be focused on their current primary concern, with the goal of achievingrapid assessment and relief of current crisis or distress if possible. Pt agreed to proceed under this format. CHIEF COMPLAINT: "anxiety" REFERRED BY: Self HISTORY OF PRESENT ILLNESS: Jovita Rose is a 62 year old female with PPX of anxiety/depression, previously diagnosed withBipolar/schizophrenia seen today for urgent psychiatric care with primary concern of worsening anxiety. Collateral information provided by daughter - pt has h/o anxiety and depression, h/o breast, uterine, and colon cancer, treated with chemo and radiation therapy. Now seeking urgent care due to increased anxiety since 2016, is anxious about leaving the house, says she's afraid a car will hit her or she'll lose her balance, [place]. Has h/o hoarding, gets anxious when family throws things out. Has difficulty sleeping, sleep schedule often inverted. Anxiety increased recently after there have been rumors her alf facility will be closing. Has been ruminating about his possibility. Notes steady decline in her mood, MH, and memory for a number of years. Was hospitalized May last year for endoscopy, complicated by Covid and C-diff, experienced what appears to have been a delirium, documented encephalopathy. During this episode her medications were adjusted - BuSpar, cariprazine, Cogentin Were discontinued. The pt reports feeling "ok" except for ongoing c-diff symptoms, still on AB. States mood is "anxious", says she has to get a parking pass but "ladjennifer isn't in her office". Needs parking pass for visitors. Feels she's worrying constantly, feels it is at her baseline, has difficulty relaxing. Worrying about mundane matters and things she knows she shouldn't worry about, "don't know exactly what's going on". "People can't mind there own business". No persecutory delusions currently but felt in the past people wanted to "report" her to [facility], "they can't keep to themselves". Reports cameras and microphones have been installed in the facility common areas but not in her room or to target her specifically. Hears her name being whispered in the community room, "happens enough that I'm aware of it". Feels they talk about her because she stays in her apartment, feels this bothers 'them'. "They are jealous that my children come to see me". Used to hear odd noises in her room, "would sound like 4-5 people talking outside my door". Last heard them a few months ago. Also experienced VH in the past, not since her hospitalization. Per recent assessment: "I have always had hallucinations, since childhood. At age 25, I would see and hear "Mr. Hanna" I felt he was trying to take my baby. More recently, I see a man in a blue bathroom in my apt. Also, 3-4 woman come in the apt, they say negative t hings to me. Lately, I have been seeing a white fluffy cat in my apt and at my daughter's apt. lasttime was last week." Pt denies current or recent active or passive suicidal ideation. Reports having periods of severe insomnia, not sleeping for up to 5 days at a time. Psychiatric ROS non-contributory except for the above. MRI: Several scattered punctate foci of T2 prolongation is seen in the subcortical white matter in the frontal and parietal lobes. There is no sign of an enhancing mass CT 05/2023 "Patchy hypodensities in the cerebral white matter are nonspecific, however, they likely represent chronic microvascular ischemic changes." PAST PSYCHIATRIC HISTORY: First received care in her 30's - had "racing thoughts", lots of energy, couldn't sleep, no grandiosity PAST HOSPITALIZATIONS: denies PAST MEDICATION TRIALS: Celexa - effective Prozac Abilify Cariprazine - daughter believes it caused difficulty swallowing Risperidone Wellbutrin - seemed to do well Meds before recent hospitalization - buspirone 15 mg twice a day, cariprazine, benztropine 1 mg daily and pregabalin 75 mg twice a day due to somnolence/encephalopathy inpatient CURRENT MEDICATION: trazodone HISTORY OF SELF HARMING: yes, put ex-bf's initials in arm when a teen CURRENT SUICIDAL IDEATION: denies PAST SUICIDAL IDEATION: denies PAST SUICIDE ATTEMPTS: denies ACCESS TO FIREARMS: denies CURRENT OR PAST ETOH AND/OR SUBSTANCE ABUSE: no etoh use, h/o sporadic drug use in 20s, none recently. Past Medical History: Diagnosis Date Aortic valve stenosis Cataract, senile DM type 2, not at goal ([facility]) Diabetes Type II, Uncontrolled Dyslipidemia, goal LDL below 70 2003 ANIVAL (generalized anxiety disorder) 12/05/2017 Heart failure, diastolic, due to HTN ([facility]) 07/23/2013 History of breast cancer 10/01/2014 History of colon cancer 10/01/2014 HTN, goal below 130/80 Hypothyroidism Incisional hernia 10/10/2019 MAL JOSE BREAST UP-OUTER - pT2 pN2 M0, stage IIIa 02/13/2008 Malignant neoplasm of female breast ([facility]) Medical marijuana use 12/09/2019 Miosis Motion sickness LEYVA (nonalcoholic steatohepatitis) 06/28/2018 Obesity, Class I, BMI 30.0-34.9 (see actual BMI) 07/31/2023 Obstructive sleep apnea 10/31/2010 DANYELLE (obstructive sleep apnea) Persistent insomnia 09/04/2017 Pneumoperitoneum 06/06/2023 Recurrent major depressive disorder, in full remission ([facility]) 12/05/2017 S/P AORTIC VALVE REPLACEMENT - #25 pericardial Mc valve 11/01/2010 Type 2 diabetes mellitus with diabetic neuropathy, with long-term current use of insulin ([facility]) 08/23/2018 Ventral hernia without obstruction or gangrene 12/21/2016 ALLERGIES: Adhesive tape, Glycerin, Lactose, Lisinopril, Monosodium glutamate, and Pcn [penicillins] CURRENT MEDICATIONS: Current Outpatient Medications Medication Sig Dispense Refill [...] feet once daily. 400 g 3 Nystatin 797199 UNIT/GM External Powder (Nystop) Apply topically to [...] BEFORE BEDTIME 90 Capsule 0 Vancomycin HCl 125 MG Oral Capsule (Vancocin) Take 1 Capsule by mouth every 6 hours for 10 days, THEN 1 Capsule 2 times a day for 7 days, THEN 1 Capsule daily for 7 days, THEN 1 Capsule every other day for 14 days. 68 Capsule 0 No current facility-administered medications for this visit. [...] mg/dL for hypoglycemia E11.9 100 Tab 3 [employer] Verio w/Device Kit Use up to 4 times a day E11.9 1 Kit 0 [employer] [facility] Lancets 33G TEST 4 TIMES DAILY DIRECTED, [...] feet once daily. 400 g 3 Nystatin 677016 UNIT/GM External Powder (Nystop) Apply topically to [...] BEFORE BEDTIME 90 Capsule 0 Vancomycin HCl 125 MG Oral Capsule (Vancocin) Take 1 Capsule by mouth every 6 hours for 10 days, THEN 1 Capsule 2 times a day for 7 days, THEN 1 Capsule daily for 7 days, THEN 1 Capsule every other day for 14 days. 68 Capsule 0 No current facility-administered medications for this visit. No medication comments found. There were no vitals filed for this visit. Wt Readings from Last 3 Encounters: 12/11/23 68.9 kg (152 lb) 12/03/23 69 kg (152 lb 3.2 oz) 11/21/23 70.8 kg (156 lb) There is no height or weight on file to calculate BMI. RECENT LABS/IMAGING: Recent Results (from the past 2016 hour(s)) COMPREHENSIVE METABOLIC PANEL Collection Time: 10/15/23 11:56 AM Result Value Ref Range BUN 27 (H) 6 - 20 mg/dL Creatinine 1.3 (H) 0.5 - 1.0 mg/dL Estimated Glomerular Filtration Rate 44 (L) >=60 mL/min Sodium 131 (L) 135 - 146 mmol/L Potassium 3.6 3.5 - 5.1 mmol/L Chloride 86 (L) 98 - 107 mmol/L CO2 26 22 - 32 mmol/L Anion Gap 19 (H) 7 - 15 mmol/L Glucose 292 (H) 70 - 120 mg/dL Albumin 4.2 3.8 - 5.0 g/dL AST 18 10 - 35 U/L Alkaline Phosphatase 95 35 - 130 U/L Bilirubin, Total 0.8 <=1.2 mg/dL Calcium 9.8 8.4 - 10.2 mg/dL Protein 7.1 6.0 - 8.3 g/dL ALT 11 10 - 35 U/L CBC Collection Time: 10/15/23 11:56 AM Result Value Ref Range WBC 10.38 4.00 - 10.80 K/uL RBC 4.83 3.85 - 5.15 M/uL HGB 12.3 12.0 - 15.3 g/dL HCT 38.3 36.0 - 45.2 % MCV 79.3 81.5 - 97.5 fL MCH 25.5 27.0 - 34.0 pg MCHC 32.1 32.0 - 36.0 g/dL RDW 16.0 11.5 - 15.5 % PLT 175 140 - 400 K/uL MPV 10.9 6.6 - 11.1 fL TSH WITH FREE T4 IF INDICATED Collection Time: 10/15/23 11:56 AM Result Value Ref Range TSH 2.83 0.27 - 4.20 uIU/mL MAGNESIUM Collection Time: 10/15/23 11:56 AM Result Value Ref Range Magnesium 2.1 1.5 - 2.6 mg/dL MEDICAL REVIEW OF SYSTEMS: No CP or SOB. All other systems reviewed and are negative or non-contributory. MENTAL STATUS EVALUATION: Appearance: age-appropriate, casually dressed, and disheveled Muscle strength and tone: Unable to assess via tele-medicine encounter Gait: Not observed via tele-medicine encounter Motor: No significant psychomotor agitation or retardation, no hyperactivity noted. No evidence of tics, tardive dyskinesia or abnormal muscle movements. Behavior: calm, cooperative, and appropriate Eye contact: good Speech: normal in rate, rhythm, tone, and volume Mood: "Anxious and depressed" Affect: type - euthymic; range - full range non-labile, related Thought Process: logical, linear, and goal directed Thought Content: No active or passive SI, denies current AVH endorses possible exaggerated paranoidideation, no specific persecutory delusions endorsed Level of Consciousness and orientation: alert, oriented to time, place, person Attention: appropriate for conversation Recent and remote memory as evidenced by recall of recent circumstances and remote life events: intact Fund of knowledge as evidenced by vocabulary and current/historical events: intact Insight: good, based on recognition and understanding of mental illness and need for treatment Judgement: good based on understanding of life event [place] Suicide Severity Rating Scale Results 12/12/2023 13:21 [place] SUICIDE SEVERITY RATING SCALE (C-SSRS) Have [...] No Level of Risk [facility] Completed: No RISK ASSESSMENT Suicide/Homicidal Ideation/Plan/Intent: Acute Risk Factors: current mood and anxiety symptoms Chronic Risk Factors: significant medical condition, age over 65, , and h/o mood/anxiety disorder Protective factors: devoted to family, child and/or pet, support from family, sense of purpose, current desire to engage in services, future focused thinking, and has safety plan Homicidal: Denies Formulation: Based on these risk and protective factors, this patient's safety risk is assessed to be minimal atthis time. Pt is future oriented, help seeking, convincingly contracts for safety, and able to effectively participate in treatment planning including what to do in a crisis. THERAPEUTIC STRATEGIES UTILIZED: Supportive listening Psychoeducation DIAGNOSIS: ICD-10-CM 1. Mood disorder (HCC) F39 2. Anxiety disorder, unspecified type F41.9 Assessment: Jovita Rose presents due to worsening anxiety and depression. Current worsening of her mental health likely multifactorial, contributing factors include medication discontinuation due to encephalopathy in the course of medical illness late last year, probable underlying mood disorder given history provided, as well as likely neurocognitive decline with vascular etiology as evidenced by changes seen in CT and steady worsening of her cognitive capacity according to daughter. Today she endorses excessive worry, restlessness as well as depressed mood. She also endorses possible increase paranoid ideation, reports experiencing auditory visual hallucinations recently but none today. Discussed variety of treatment options, patient and daughter who has medical power of privacy attorney opted to start Cymbalta for her anxiety/mood. They declined addition of mood stabilizing medication. Patient will reach out for acute care follow-up if condition worsens or they develop new or worsening suicidal ideation. Otherwise patient appears stable enough to await establishment of longitudinalpsychiatric care. Patient Instructions Start duloxetine 20 mg a day for mood RTC: Urgent care PRN Treatment options and alternatives reviewed with patient who agrees with the above plan. Information about current medications was provided to the patient including reasons why medications are being used. Patient understood the risks, benefits, side-effects, and potential complications associated with changes in medications being proposed (both medications being started and medications being discontinued or having dose changed). Patient is making an informed medical decision to follow the recommendations outlined in this note. Directed pt to call with any questions or concerns, worsening symptoms and/or ask for earlier appointment. Jovita Rose participated in developing a crisis plan should he/she experience worsening of symptoms before next follow-up appointment, including being aware of what resources to use according to the urgency and severity of symptoms. Jovita Rose was able to verbalize understanding of thesteps necessary to obtain help between appointments should be needed, from requesting a phone call,to requesting an appointment sooner, including reaching clinic after hours, or accessing emergency mental health and medical services, either at a local emergency department or by activating mobile crisis teams and EMS. Risk assessment was performed. This is a patient being treated for chronic mental health conditionsand/or substance use disorder as characterized above; at the time of this visit, there was no indication that this patient was either a direct risk to self, others, or gravely disabled by symptoms ofa mental illness or substance use disorder. PT is able to effectively participate in treatment and crisis planning. At the time of this evaluation, there were enough protective factors in place and it was deemed safe to continue with treatment on a outpatient basis with return to clinic in the timeframe described below. The patient was instructed to schedule an earlier appointment or reach out toother mental health resources available if they should experience new or worsening symptoms placingthem or others at risk of harm. Time Spent on Visit: 60 minutes - including preparing to see the patient, reviewing history, performing evaluation, counseling/educating patient, ordering medications/tests, documenting clinical information. Please note >17 minutes of counseling time over and above medication management was spent with patient discussing self care and providing supportive therapy Treatment plan reviewed with the patient. Patient voices understanding and concurs with plan. National Suicide Prevention Lifeline : 988 Crisis Textline : Text "HOME" to 811011 to connect with a crisis counselor Crisis Numbers by County: [facility] - Emergency Services [facility] (9-635-8-YOU CAN) re:solve Crisis Network Maureen & Demetria . [facility] - Crisis Intervention [place] [facility] Crisis Help-Line [facility] - Crisis Intervention Services [facility] Service [employer] - Crisis Intervention [place] Choose option 1 [facility] of Home Assessment Nurse Augusto, Sean & Misael Crisis Intervention [place] [facility] - Mental Health Crisis [place] [facility] - Crisis Intervention [place] [facility] - Crisis Intervention Janeth Britton Potter - Crisis Line Deric Angel Pike - Mental Health Crisis Hotline [facility] - Crisis Services [place] [facility] Crisis Center [place] Service Access 1,2,3 Listo. - Crisis Intervention Freddie - Mental Health Crisis Intervention Services [facility] MH/ID Program Gertrudis Kevin, Tai, [place] - Crisis System [place] [facility] Human Services - Crisis Hotline Gianna & Tobi (2-724-021-HELP) [facility] - Crisis Intervention [facility] - Crisis Intervention [facility] - Crisis Services [place] Behavioral Health - Crisis Center [place] [phone] [facility] - Crisis Hotline Shabana (8:30 am-5:00 pm) OR (after 5:00 pm, weekends & holidays) Nithin Luigi GreerYanez [facility] Crisis Intervention Program [place] [facility] Mental Health Crisis Line Sathya Horner and [place] - [facility] Crisis [place] & [place] [facility] - Crisis Intervention [place] [facility] Mental Health Crisis Service [place] [facility] - Crisis Intervention [place] [facility] - Crisis Intervention [place] & [place] [facility] - Help [facility] MH/ID Program [place] [facility] - Crisis Intervention [place] [facility] - Crisis Intervention [place] [facility] Emergency Services, [facility] - Crisis Intervention [place] [facility] Behavioral Health - Emergency Services [place] [facility] - Crisis Line [place] - DB[facility]IDS - Suicide and Crisis Intervention Hotline [facility] - Crisis/ Emergency Services [facility] - Emergency Contact Line [facility] - Crisis Line [place] ext. 1 [facility] Services [facility] - Crisis Intervention Hotline [place] Crisis Intervention Services Josh Almeida MD [facility] [phone] 12/12/2023 3:22 PM documented in this encounter Plan of Treatment Upcoming Encounters Date Type Department Care Team (Latest Contact Info) Description 2023 11:30 AM EDT Telemedicine Psychology [facility] [address] [place] [address] Jovita Aquino, [facility] [address] [place] [address] 12/19/2023 1:53 PM EDT Hospital Encounter [place] [facility], Operating Room [facility] [address] [place] [id number] Ramsey Burnett, [address] [place] [address] 12/19/2023 1:53 PM EDT - 12/19/2023 2:46 PM EDT Surgery OR [facility], Operating Room [facility] [address] [id number] Ramsey Burnett, [address] [place] [address] LEFT EXTRACAPSULAR CATARACT REMOVAL COMPLEX WITH IOL 12/20/2023 8:30 AM EDT Office Visit Ophthalmology, [facility] [address] [address] Ramsey Burnett, DO [address] [place] [address] 12/21/2023 6:10 PM EDT Pharmacy Pharmacy, [facility] [address] [facility] [facility] [place] [address] Pharmacist2, [facility] [address] [facility] [facility] [place] [address] 01/02/2024 12:30 PM EDT [facility] at Home, [facility] [address] [place] [address] Jaycee Sorto RN [address] [place] [address] 01/03/2024 9:00 AM EDT Office Visit Ophthalmology, [facility] [address] [place] [address] Ramsey Burnett, DO [address] [place] [address] 01/08/2024 9:20 AM EDT Office Visit Nephrology, [facility] [address] [facility] [place] [address] Fidelina Baumann MD [address] [facility] [place] [address] 01/08/2024 11:30 AM EDT Office Visit Cardiology, [facility] [address] [place] [address] Roberto Carlos Muniz, DO [address] [place] [address] 01/24/2024 2:45 PM EDT Office Visit Ophthalmology, [facility] [address] [place] [address] Ramsey Burnett, DO [address] [place] [address] 02/04/2024 10:20 AM EDT Office Visit Family Practice [facility] [address] [place] [address] Gregory Rausch MD [address] [place] [address] 06/03/2024 9:00 AM EDT Telemedicine Psychiatry, [place] [address] [place] [address] Janice Atwood MD [address] [place] [address] Scheduled Procedures Name Priority Associated Diagnoses Date/Ti [...] score < 10) 12/12/2023 12/11/2023 Albumin/Creatinine Ratio 03/09/202403/09/2 023, 12/22/2022, 05/05/2021, Additional history exists HbA1c 03/19/2024 09/18/2023, 11/0 03/2023, 04/09/2023, Additional history exists GFR 04/14/2024 10/15/2023, 11/0 05/2023, 07/31/2023, Additional history exists CKD PHOS USE SMARTSET 61503 06/18/202405/26, 06/16/2023, 06/15/2023, Additional history exists Diabetic Eye Exam 09/13/2024 09/13/2023, , 09/13/2023, Additional history exists B-12 09/18/2024 09/18/2023, 08/24, 2020, Additional history exists CKD HGB USE SMARTSET 23955 10/15/202410/15, 07/31/2023, 07/31/2023, Additional history exists TSH [...] this encounter Medical Devices Implanted Type Area Lead Solutions Architect Device Identifier Shelf Expiration Date Model / Serial / Lot Cath Roselia Single Lumen - [id number] Implanted:Qty : 1 on 03/12/2008 at OR [facility] Left: Chest [employer] *DO NOT USE* 07/25/2012 21-4053-24 / / [id number] Sut Steel 6 M654g - [id number] Implanted:Qty : 1 on 11/01/2010 at OR [facility] N/A: Chest DO NOT USE M654G / / Sut Steel 6 M654g - [id number] Implanted:Qty : 1 on 11/01/2010 at OR [facility] N/A: Chest DO NOT USE M654G / / Valve Tarsha Aortic [id number] - [id number] Implanted:Qty : 1 on 11/01/2010 at OR [facility] N/A: Heart [employer] 05/20/2012 2800TFX-25 / / [id number] Mesh Soft [id number] - [id number] Implanted:Qty : 1 on 10/10/2019 by Gigi Hendrickson MD at OR [facility] N/A: Abdomen CR BARD : DAVOL [id number] 05/21/2024 [id number] / / [id number] Lens 22.5 Sn60wf - [id number] - [id number] Implanted:Qty : 1 on 09/15/2020 by Renaldo Cook, Cece Acosta MD at OR [facility] Right: Eye IVA : SURGICAL [id number] 05/13/2025 SN60 WF.225 / [id number] / [id number] documented as of this encounter Visit Diagnoses Diagnosis Mood disorder (HCC)- Primary Unspecified episodic mood disorder Anxiety disorder, unspecified type Cataract Unspecified cataract documented in this encounter [...] the patient have Health Care Power of Photographic Plate Maker? No Full Code 10/10/2019 8:40 AM 10/10/2019 5:53 PM This order reflects the patients wishes and were consensually agreed upon. Full Code 11/06/2017 4:55 PM 11/07/2017 7:14 PM This order reflects the patients wishes and were consensually agreed upon. Healthcare Agents on File Name Relationship Healthcare Agent [facility] p Communication Gigi [facility] Care Repr esentative (appointed verbally by patient or by statute hierarchy) Care Teams Accreditation Coordinator Relationship Specialty Start Date End Date Gregory Rausch MD [address] [place] [address] PCP - General Family Medicine 02/12/20 documented as of this encounter
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
[2024-06-05] MEDS ORDERED: ONDANSETRON INJ 2 MG/ML 2 ML VIAL IV PRN (15:36)
[2024-06-05] MEDS ORDERED: CARBOHYDRATES FOR HYPOGLYCEMIA PO PRN (15:36)
[2024-06-05] MEDS ORDERED: GLUCOSE 10 TAB/TUBE PO PRN (15:36)
[2024-06-05] MEDS ORDERED: GLUCAGON FOR INJ 1 MG VIAL SQ PRN (15:36)
[2024-06-05] MEDS ORDERED: DEXTROSE 50% 50 ML SYRINGE IV PRN (15:36)
[2024-06-05] MEDS ORDERED: GLUCOSE 40% GEL 15 GM TUBE PO PRN (15:36)
[2024-06-05] MEDS: SODIUM CHLORIDE 0.9% 1,000 ML IV SCH (15:38)
[2024-06-05] MEDS: NSS + 20MEQ KCL 20 MEQ/1,000 ML BAG IV SCH (16:12)
[2024-06-05] MEDS: POTASSIUM CHLORIDE CRTAB 20 MEQ TABCR PO STA (16:12)
[2024-06-05] MEDS: INSULIN ASPART PER UNIT CHARGE SC SCH (16:58)
[2024-06-05] MEDS: HEPARIN SOD 5,000 UNIT/0.5 ML VIAL SQ SCH (20:38)
[2024-06-05] MEDS: FIDAXOMICIN 200 MG TAB PO SCH (20:38)
[2024-06-05] MEDS: MELATONIN 3 MG TAB PO SCH (20:38)
[2024-06-05] MEDS: METOPROLOL TARTRATE 50 MG TAB PO SCH (20:39)
[2024-06-05] MEDS: GABAPENTIN 300 MG CAP PO SCH (20:39)
[2024-06-05] MEDS: MECLIZINE HCL 25 MG TAB PO SCH (20:40)
[2024-06-06 01:01] LABS: Adenovirus F 40/41 PCR Not Detected (NotDetected); Astrovirus PCR Not Detected (NotDetected); Campylobacter PCR Not Detected (NotDetected); Cryptosporidium PCR Not Detected (NotDetected); Cyclospora cayetanensis PCR Not Detected (NotDetected); Entamoeba histolytica PCR Not Detected (NotDetected); Enteroaggregative E.coli(EAEC) Not Detected (NotDetected); Enteropathogenic E.coli (EPEC) Not Detected (NotDetected); Enterotoxigenic E.coli (ETEC) Not Detected (NotDetected); Giardia lamblia PCR Not Detected (NotDetected); Norovirus GI/GII PCR Not Detected (NotDetected); Plesiomonas shigelloides PCR Not Detected (NotDetected); Rotavirus A PCR Not Detected (NotDetected); Salmonella PCR Not Detected (NotDetected); Sapovirus PCR Not Detected (NotDetected); Shiga-like Toxin E.coli (STEC) Not Detected (NotDetected); Shigella/Enteroinvasive E.coli Not Detected (NotDetected); Vibrio cholerae PCR Not Detected (NotDetected); Vibrio species PCR Not Detected (NotDetected); Yersinia enterocolitica PCR Not Detected (NotDetected)
[2024-06-06] MEDS: LEVOTHYROXINE SODIUM 75 MCG TABLET PO SCH (05:28)
[2024-06-06 06:14] LABS: Hematocrit (blood only) 37.5 % (37.0-47.0); Hemoglobin 12.5 g/dl (12.0-16.0); Mean Corpuscular Hemoglobin 27.4 pg (25.0-34.0); Mean Corpuscular Hgb Conc 33.3 g/dL (32.0-36.0); Mean Corpuscular Volume 82.2 fL (80.0-100.0); Mean Platelet Volume 10.5 fL (9.4-12.4); Platelet Count 134 K/uL (130-400); RDW Coefficient of Variation 13.6 % (11.5-14.5); RDW Standard Deviation 40.7 fL (36.4-46.3); Red Blood Count 4.56 M/uL (4.20-5.40); White Blood Count 8.24 K/ul (4.8-10.8)
[2024-06-06 06:45] LABS: BUN Creatinine Ratio 14.1 (10-20); Calcium 8.9 mg/dl (8.6-10.3); Creatinine Clr Calc Pharmacy 55.2 ml/min; Est GFR (African American) 83.3 ml/min; Est GFR (Non-African American) 71.9 ml/min; Magnesium 1.7 mg/dl (1.7-2.4); Potassium 4.1 mmol/L (3.5-5.1)
[2024-06-06 06:50] LABS: Thyroid Stimulating Hormone 1.823 uIu/ml (0.300-4.500)
[2024-06-06 07:41] LABS: Estimated Average Glucose 229 mg/dl; Hemoglobin A1C 9.6 % (4.5-5.6)
[2024-06-06] MEDS: POTASSIUM CHLORIDE 10 MEQ TABCR PO SCH (09:12)
[2024-06-06] MEDS: ACETAMINOPHEN 325 MG TAB PO PRN (09:13)
[2024-06-06] MEDS: CLOPIDOGREL BISULFATE 75 MG TAB PO SCH (09:13)
[2024-06-06] MEDS: ADVANCED PROBIOTIC 625 MG CAPSULE PO SCH (09:13)
[2024-06-06] MEDS: ASPIRIN 81 MG ECTAB PO SCH (09:14)
[2024-06-06] MEDS: ATORVASTATIN 40 MG TAB PO SCH (09:14)
[2024-06-06] MEDS: FLUTICASONE PROPIONATE NA SPR 16 GM BTL SCH (09:15)
--- NOTE | 2024-06-06 10:40 | Gastrointestinal Consultation ---
Date of Consultation June 06, 2024 Assessment & Plan (1) Pancolitis: 63 year old female with history of aortic stenosis s/p TAVR in 2017, CAD s/p drug-eluting stent to LAD, heart failure with preserved ejection fraction, T2DM, hypothyroidism, hyperlipidemia, cirrhosis secondary to [place], hypertension, questionable paroxysmal atrial fibrillation, obstructive sleep apnea intolerant to CPAP, CKD stage III, benign paroxysmal positional vertigo due to bilateral vestibular disorder, history of schizoaffective disorder, history of breast and colon cancer, history of GI bleed, history of C. difficile infection in April with diarrhea and imaging showing nonspecific pancolitis. She notes improvement of pain, cramping, stool frequency and consistency overnight with dificid. C.diff did return negative as well as biofire. Given recent c.diff infection, colitis on imaging and improvement of Dificid, appropriate to complete a full course of Dificid. May add Questran 4 g PRN diarrhea. Dairy free diet as tolerated. She should follow up with [facility] to discuss timing of an OP colonoscopy in follow up. Thank you for allowing us to participate in the care of this patient. Please call with any acute changes, questions or concerns. Please see addendum below with additional recommendation from my supervising physician. I spent a total of 60 minutes on the date of service in review of patient's record, and previously obtained information in person and appropriate medical visit, discussion and education of plan, with patient and/or caregiver, placing orders for tests/referral/procedures as medically necessary and documentation of pertinent clinical information in patient's medical records for their visit today. Supervising Physician Co-Signing Physician Notes Patient interviewed and case discussed with Tavares INIGUEZ. Patient improved on Dificid despite negative stool for C.diff. 1 specimen is about 92% sensitive. Rec: Continue Dificid for full 10 day course and use lactose restricted diet. If symptoms recur after course of Dificid and stools still negative can try cholestyramine. IP GI Service will sign off. History of Present Illness Reason for Consultation: pancolitis, c.diff Requesting Physician: Olu Barrera DO Attending Physician: Olu Barrera DO History of Present Illness 63 year old female with history of aortic stenosis s/p TAVR in 2017, CAD s/p drug-eluting stent to LAD, heart failure with preserved ejection fraction, T2DM, hypothyroidism, hyperlipidemia, cirrhosis secondary to [place], hypertension, questionable paroxysmal atrial fibrillation, obstructive sleep apnea intolerant to CPAP, CKD stage III, benign paroxysmal positional vertigo due to bilateral vestibular disorder, history of schizoaffective disorder, history of breast and colon cancer, history of GI bleed, history of C. difficile infection, history of COVID, history of splenic infarcts admitted through the ED with abd pain, diarrhea. Imaging showing pancolitis. She was recently on a course of Vancomycin for c.diff infection in April. however, endorses continued diarrhea. She was empirically started on Dificid in the ED. Stool for c.diff returned negative. Biofire also negative. Notes since started Dificid, is feeling improved. Less pain/cramping. Stools is less often, starting to become formed. No black or bloody stools. No nausea/vomiting. No fever, chills, CP, SOB. CTAP 2023: . Findings compatible with a nonspecific pancolitis, likely infectious or inflammatory. 2. No bowel obstruction or pneumoperitoneum. 3. Right nephrolithiasis. 4. Increased size of the probable complex cyst of the right kidney now measuring 2.6 cm. 5. Additional findings as above. Allergies Allergy/AdvReac Type Severity Reaction Status Date / Time glycerin Allergy Intermediate ITCHING, Verified 11/10/23 00:17 BURNING FROM TOPICALS lactose Allergy Intermediate Gastrointestinal Verified 11/10/23 00:17 Upset Penicillins Allergy Intermediate Rash Verified 11/10/23 00:17 adhesive tape AdvReac Intermediate CAN NOT Verified 11/10/23 00:17 TOLERATE BANDAIDS lisinopril AdvReac Intermediate Cough Verified 11/10/23 00:17 monosodium glutamate AdvReac Intermediate EDEMA OF Verified 11/10/23 00:17 HANDS & FEET Home Medications Medication Instructions Recorded Confirmed Type atorvastatin 40 mg tablet (Lipitor) 40 mg PO DAILY 05/02/19 06/05/24 History clopidogrel 75 mg tablet (Plavix) 75 mg PO DAILY 05/02/19 06/05/24 History levothyroxine 75 mcg tablet 75 mcg PO DAILY 05/02/19 06/05/24 History meclizine 25 mg tablet 50 mg PO BID 05/02/19 06/05/24 History magnesium oxide 400 mg PO DAILY 02/14/23 06/05/24 History trazodone 100 mg tablet 300 mg PO HS PRN Insomnia 02/14/23 06/05/24 History flash glucose scanning reader #1 ea 02/15/23 06/05/24 Rx (FreeStyle Ke[facility]) ammonium lactate 12 % lotion 1 applic topical DAILY 06/03/23 06/05/24 History aspirin 81 mg tablet,delayed 81 mg PO DAILY 06/03/23 06/05/24 History release cranberry extract-vitamin C 250 2 cap PO TID 06/03/23 06/05/24 History mg-60 mg capsule (Azo Cranberry Plus Vit C) fluticasone propionate 50 2 spray intranasal DAILY 06/03/23 06/05/24 History mcg/actuation nasal spray,suspension insulin degludec 200 unit/mL (3 36 unit subcut DAILY 06/03/23 06/05/24 History mL) subcutaneous pen (Tresiba FlexTouch U-200 insulin) melatonin 10 mg tablet 10 mg PO HS 06/03/23 06/05/24 History multivitamin with minerals 1 tab PO DAILY 06/03/23 06/05/24 History nystatin 100,000 unit/gram topical 1 applic topical DIRECTED PRN 06/03/23 06/05/24 History powder Skin Irritation semaglutide 2 mg/dose (8 mg/3 mL) 2 mg subcut WK 06/03/23 06/05/24 History subcutaneous pen injector (Ozempic) Al hyd-Mg tr-alg ac-sod bicarb 80 1 tab PO DIRECTED PRN Gi Upset 10/27/23 06/05/24 History mg-14.2 mg chewable tablet (Gaviscon) insulin aspart U-100 100 unit/mL 0 unit subcut TIDM 50 UNITS/DAILY 10/27/23 06/05/24 History (3 mL) subcutaneous pen (Novolog FlexPen U-100 Insulin aspart) metoprolol tartrate 25 mg tablet 50 mg PO BID 10/27/23 06/05/24 History gabapentin 300 mg capsule 300 mg PO TID 06/05/24 06/05/24 History potassium chloride 10 mEq 10 meq PO BID 06/05/24 06/05/24 History tablet,extended release(part/cryst) (Klor-Con M) fidaxomicin 200 mg tablet (Dificid) 200 mg PO BID 10 days #20 tabs 06/06/24 Rx Patient History Medical History Acute hyperglycemia Hypomagnesemia Hypokalemia Intertrigo Chest pain Pulmonary embolism Altered mental status UTI (urinary tract infection) Pleuritic chest pain CKD (chronic kidney disease) stage 3, GFR 30-59 ml/min IDDM (insulin dependent diabetes mellitus) CAD (coronary artery disease) Uterine cancer 2014--sx, no chemo/radiation Breast cancer, right breast 2007--Sx, chemo/radiation Colon cancer 2004--sx, no chemo or radiation Liver cirrhosis non-alcoholic Hypothyroidism Diabetes mellitus, type 2 On anticoagulant therapy Cataract of both eyes Depression Anxiety Aortic valve stenosis Cardiac murmur Follows with Dr. Muniz Hyperlipidemia Hypertension Sleep apnea Cpap History of removal of breast implant "Left " Depression with anxiety DANYELLE (obstructive sleep apnea) Hypothyroidism HTN (hypertension) Heart failure Dyslipidemia Cataract Aortic valvar stenosis Breast cancer Colon cancer Surgical History Presence of stent in coronary artery S/P TAVR (transcatheter aortic valve replacement) History of percutaneous coronary intervention prior to TAVR in order to protect her left main, she also had a 3.5 x 23 mi llimeter drug-eluting stent placed in the left main/LAD, which was expanded out into the aorta. History of cardiac cath x2--2010 @ [facility] 07/2017 @ [facility]-no stent, follows with Dr. Muniz S/P foot surgery, right "foot was widening" History of section x4 H/O breast surgery L implant infected and was removed History of breast reconstruction Bilt breast after masectomy History of bilateral tubal ligation History of dilatation and curettage History of carpal tunnel release bilt History of colonoscopy History of esophagogastroduodenoscopy (EGD) History of total abdominal hysterectomy and bilateral salpingo-oophorectomy 2014 D/T uterine cancer H/O breast biopsy right--malignant H/O bilateral mastectomy 01/2008--breast cancer History of bowel resection 2004 @ [facility] [place] Joyce d/t Colon Cancer History of appendectomy History of open heart surgery 2011 @ [facility] [place] Joyce H/O aortic valve replacement 06/2017 @ [facility] [place] Cris History of hysterectomy with bilateral oophorectomy History of appendectomy History of partial colectomy S/P mastectomy, bilateral H/O colonoscopy Previous section History of carpal tunnel surgery of right wrist History of carpal tunnel surgery of left wrist TAVR 2018 H/O aortic valve replacement #25 Manga aortic valve bioprosthesis placed in 2010, and in 2017 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 On 11/06/2017 she underwent transcatheter aortic valve replacement receiving a 26 mm Hernandez-Bing S3 prosthesis Family History Grandmother Family history of diabetes mellitus maternal Family/Other Family history of diabetes mellitus paternal aunt Father , of premature CAD Coronary heart disease Mother , of premature CAD Coronary heart disease Social History Smoking Status: Never smoker Second Hand Exposure: No; Do You Dip or Chew Tobacco: No; Hx Alcohol Use: Yes Alcohol type: beer and wine Hx Substance Use: No Preferred Language: Yi Communication Ability: Effective Acute Care Registered Nurse Required: No Beliefs That Will Affect Care: None marital status: Single marital status details: has fiance Current Living Situation: Alone Current Living Situation Comment: aid from 8-3 M-F Other Information That Helps Us Care for You: No Feels Safe at Home: Yes Safety Concerns: Feels Safe At This Time Assistive Devices: Cane, CPAP and Walker Review of Systems Review of Systems: All other findings negative except as noted in HPI. Physical Exam Constitutional: WD/WN, vitals as above Respiratory: normal respiratory effort, lungs clear to auscultation Cardiovascular: RRR, no murmur, no edema Gastrointestinal (Abdomen): normal bowel sounds, soft, nontender, no hepatosplenomegaly Skin: no rashes, warm and dry Results & Data Vital Signs (Past 12 Hours) Vital Signs Temp Pulse Pulse Resp BP Pulse Ox O2 Del Method 06/06/24 06:54 36.7 C 65 20 130/72 100 Room Air 06/06/24 03:50 78 14 99 Laboratory Results 06/06/24 06/06/24 06/05/24 Range/Units 07:32 05:29 23:15 WBC 8.24 (4.8-10.8) K/ul RBC 4.56 (4.20-5.40) M/uL Hgb 12.5 (12.0-16.0) g/dl Hct 37.5 (37.0-47.0) % MCV 82.2 (80.0-100.0) fL MCH 27.4 (25.0-34.0) pg MCHC 33.3 (32.0-36.0) g/dL RDW Std Deviation 40.7 (36.4-46.3) fL RDW Coeff of Valerio 13.6 (11.5-14.5) % Plt Count 134 (130-400) K/uL MPV 10.5 (9.4-12.4) fL Immature Gran % (Auto) % Neut % (Auto) % Lymph % (Auto) % Gilmer % (Auto) % Eos % (Auto) % Baso % (Auto) % Neut # (Auto) (1.40-6.50) K/uL Lymph # (Auto) (1.20-3.40) K/uL Gilmer # (Auto) (0.11-0.59) K/uL Eos # (Auto) (0.00-0.50) K/uL Baso # (Auto) (0.00-0.20) K/uL Immature Gran # (Auto) (0.01-0.20) K/uL Sodium 138 (136-145) mmol/L Potassium 4.1 D (3.5-5.1) mmol/L Chloride 105 (98-107) mmol/L Carbon Dioxide 30 (21-32) mmol/L Anion Gap 3 (3-11) BUN 12 (6-23) mg/dl Creatinine 0.85 (0.6-1.2) mg/dl Est Cr Clr Drug Dosing 55.2 ml/min Est GFR ( Amer) 83.3 ml/min Est GFR (Non-Af Amer) 71.9 ml/min BUN/Creatinine Ratio 14.1 (10-20) Glucose 117 H (70-99(Fasting)) mg/dl POC Glucose 144 H (70-99) mg/dl Estimat Average Glucose 229 mg/dl Hemoglobin A1c 9.6 H (4.5-5.6) % Calcium 8.9 (8.6-10.3) mg/dl Magnesium 1.7 (1.7-2.4) mg/dl Total Bilirubin (0.2-1.0) mg/dl Direct Bilirubin (0-0.2) mg/dl AST (13-39) U/L ALT (7-52) U/L Alkaline Phosphatase (34-104) U/L Total Protein (6.0-8.3) gm/dl Albumin (3.4-5.0) gm/dl TSH 1.823 (0.300-4.500) uIu/ml Urine Color Urine Appearance (Clear) Urine pH (4.5-7.5) Ur Specific Spalding (1.000-1.030) Urine Protein (Negative) Urine Glucose (UA) (Negative) Urine Ketones (Negative) Urine Blood (Negative) Urine Nitrite (Negative) Urine Bilirubin (Negative) Urine Urobilinogen (Negative) Ur Leukocyte Esterase (Negative) Urine WBC (Auto) (0-5) /hpf Urine RBC (Auto) (0-2) /hpf U Hyaline Cast (Auto) (0-2) /lpf U Epithel Cells (Auto) (0-2) /hpf Urine Bacteria (Auto) (None Seen) Stl C. cayetanensis PCR Not Detected (NotDetected) Stool Rotavirus A PCR Not Detected (NotDetected) Stl Adenov F 40/41 PCR Not Detected (NotDetected) Stool Astrovirus (PCR) Not Detected (NotDetected) Stool Campylobacter PCR Not Detected (NotDetected) Stl C. diff Tox B Gene Negative Cdiff Gene (Neg) Stool Cryptosporidium PCR Not Detected (NotDetected) Stl E.coli Shiga Tox PCR Not Detected (NotDetected) Stl Enterotoxigenic E PCR Not Detected (NotDetected) Stool EPEC (PCR) Not Detected (NotDetected) Stool EAEC (PCR) Not Detected (NotDetected) Stl E. histolytica PCR Not Detected (NotDetected) Stool Giardia Lamblia PCR Not Detected (NotDetected) Stool Salmonella PCR Not Detected (NotDetected) Stool Sapovirus (PCR) Not Detected (NotDetected) Stl P. shigelloides PCR Not Detected (NotDetected) Stl Shigella/EIEC PCR Not Detected (NotDetected) St Y.enterocolitica PCR Not Detected (NotDetected) Stool Vibrio (PCR) Not Detected (NotDetected) Stl Vibrio cholerae PCR Not Detected (NotDetected) Stl Norovirus GI/GII PCR Not Detected (NotDetected) 06/05/24 06/05/24 06/05/24 Range/Units 20:30 16:36 13:23 WBC (4.8-10.8) K/ul RBC (4.20-5.40) M/uL Hgb (12.0-16.0) g/dl Hct (37.0-47.0) % MCV (80.0-100.0) fL MCH (25.0-34.0) pg MCHC (32.0-36.0) g/dL RDW Std Deviation (36.4-46.3) fL RDW Coeff of Valerio (11.5-14.5) % Plt Count (130-400) K/uL MPV (9.4-12.4) fL Immature Gran % (Auto) % Neut % (Auto) % Lymph % (Auto) % Gilmer % (Auto) % Eos % (Auto) % Baso % (Auto) % Neut # (Auto) (1.40-6.50) K/uL Lymph # (Auto) (1.20-3.40) K/uL Gilmer # (Auto) (0.11-0.59) K/uL Eos # (Auto) (0.00-0.50) K/uL Baso # (Auto) (0.00-0.20) K/uL Immature Gran # (Auto) (0.01-0.20) K/uL Sodium (136-145) mmol/L Potassium (3.5-5.1) mmol/L Chloride (98-107) mmol/L Carbon Dioxide (21-32) mmol/L Anion Gap (3-11) BUN (6-23) mg/dl Creatinine (0.6-1.2) mg/dl Est Cr Clr Drug Dosing ml/min Est GFR ( Amer) ml/min Est GFR (Non-Af Amer) ml/min BUN/Creatinine Ratio (10-20) Glucose (70-99(Fasting)) mg/dl POC Glucose 158 H 200 H 311 H* (70-99) mg/dl Estimat Average Glucose mg/dl Hemoglobin A1c (4.5-5.6) % Calcium (8.6-10.3) mg/dl Magnesium (1.7-2.4) mg/dl Total Bilirubin (0.2-1.0) mg/dl Direct Bilirubin (0-0.2) mg/dl AST (13-39) U/L ALT (7-52) U/L Alkaline Phosphatase (34-104) U/L Total Protein (6.0-8.3) gm/dl Albumin (3.4-5.0) gm/dl TSH (0.300-4.500) uIu/ml Urine Color Urine Appearance (Clear) Urine pH (4.5-7.5) Ur Specific Spalding (1.000-1.030) Urine Protein (Negative) Urine Glucose (UA) (Negative) Urine Ketones (Negative) Urine Blood (Negative) Urine Nitrite (Negative) Urine Bilirubin (Negative) Urine Urobilinogen (Negative) Ur Leukocyte Esterase (Negative) Urine WBC (Auto) (0-5) /hpf Urine RBC (Auto) (0-2) /hpf U Hyaline Cast (Auto) (0-2) /lpf U Epithel Cells (Auto) (0-2) /hpf Urine Bacteria (Auto) (None Seen) Stl C. cayetanensis PCR (NotDetected) Stool Rotavirus A PCR (NotDetected) Stl Adenov F 40/41 PCR (NotDetected) Stool Astrovirus (PCR) (NotDetected) Stool Campylobacter PCR (NotDetected) Stl C. diff Tox B Gene (Neg) Stool Cryptosporidium PCR (NotDetected) Stl E.coli Shiga Tox PCR (NotDetected) Stl Enterotoxigenic E PCR (NotDetected) Stool EPEC (PCR) (NotDetected) Stool EAEC (PCR) (NotDetected) Stl E. histolytica PCR (NotDetected) Stool Giardia Lamblia PCR (NotDetected) Stool Salmonella PCR (NotDetected) Stool Sapovirus (PCR) (NotDetected) Stl P. shigelloides PCR (NotDetected) Stl Shigella/EIEC PCR (NotDetected) St Y.enterocolitica PCR (NotDetected) Stool Vibrio (PCR) (NotDetected) Stl Vibrio cholerae PCR (NotDetected) Stl Norovirus GI/GII PCR (NotDetected) 06/05/24 06/05/24 Range/Units 12:15 10:15 WBC 7.16 (4.8-10.8) K/ul RBC 4.34 (4.20-5.40) M/uL Hgb 11.7 L (12.0-16.0) g/dl Hct 34.8 L (37.0-47.0) % MCV 80.2 (80.0-100.0) fL MCH 27.0 (25.0-34.0) pg MCHC 33.6 (32.0-36.0) g/dL RDW Std Deviation 39.3 (36.4-46.3) fL RDW Coeff of Valerio 13.5 (11.5-14.5) % Plt Count 121 L (130-400) K/uL MPV 11.2 (9.4-12.4) fL Immature Gran % (Auto) 1.1 % Neut % (Auto) 65.7 % Lymph % (Auto) 21.9 % Gilmer % (Auto) 8.1 % Eos % (Auto) 2.5 % Baso % (Auto) 0.7 % Neut # (Auto) 4.70 (1.40-6.50) K/uL Lymph # (Auto) 1.57 (1.20-3.40) K/uL Gilmer # (Auto) 0.58 (0.11-0.59) K/uL Eos # (Auto) 0.18 (0.00-0.50) K/uL Baso # (Auto) 0.05 (0.00-0.20) K/uL Immature Gran # (Auto) 0.08 (0.01-0.20) K/uL Sodium 130 L (136-145) mmol/L Potassium 3.2 L (3.5-5.1) mmol/L Chloride 96 L (98-107) mmol/L Carbon Dioxide 27 (21-32) mmol/L Anion Gap 7 (3-11) BUN 19 (6-23) mg/dl Creatinine 1.03 (0.6-1.2) mg/dl Est Cr Clr Drug Dosing 53.9 ml/min Est GFR ( Amer) 66.1 ml/min Est GFR (Non-Af Amer) 57.0 ml/min BUN/Creatinine Ratio 18.4 (10-20) Glucose 433 H* (70-99(Fasting)) mg/dl POC Glucose (70-99) mg/dl Estimat Average Glucose mg/dl Hemoglobin A1c (4.5-5.6) % Calcium 8.9 (8.6-10.3) mg/dl Magnesium 1.7 (1.7-2.4) mg/dl Total Bilirubin 0.4 (0.2-1.0) mg/dl Direct Bilirubin 0.1 (0-0.2) mg/dl AST 11 L (13-39) U/L ALT 8 (7-52) U/L Alkaline Phosphatase 78 (34-104) U/L Total Protein 6.3 (6.0-8.3) gm/dl Albumin 3.2 L (3.4-5.0) gm/dl TSH (0.300-4.500) uIu/ml Urine Color Yellow Urine Appearance Cloudy A (Clear) Urine pH 5.5 (4.5-7.5) Ur Specific Spalding 1.015 (1.000-1.030) Urine Protein Negative (Negative) Urine Glucose (UA) 3+ H (Negative) Urine Ketones Negative (Negative) Urine Blood Negative (Negative) Urine Nitrite Positive A (Negative) Urine Bilirubin Negative (Negative) Urine Urobilinogen Negative (Negative) Ur Leukocyte Esterase 2+ H (Negative) Urine WBC (Auto) >50 H (0-5) /hpf Urine RBC (Auto) 0-2 (0-2) /hpf U Hyaline Cast (Auto) 0-2 (0-2) /lpf U Epithel Cells (Auto) 0-2 (0-2) /hpf Urine Bacteria (Auto) 4+ H (None Seen) Stl C. cayetanensis PCR (NotDetected) Stool Rotavirus A PCR (NotDetected) Stl Adenov F 40/41 PCR (NotDetected) Stool Astrovirus (PCR) (NotDetected) Stool Campylobacter PCR (NotDetected) Stl C. diff Tox B Gene (Neg) Stool Cryptosporidium PCR (NotDetected) Stl E.coli Shiga Tox PCR (NotDetected) Stl Enterotoxigenic E PCR (NotDetected) Stool EPEC (PCR) (NotDetected) Stool EAEC (PCR) (NotDetected) Stl E. histolytica PCR (NotDetected) Stool Giardia Lamblia PCR (NotDetected) Stool Salmonella PCR (NotDetected) Stool Sapovirus (PCR) (NotDetected) Stl P. shigelloides PCR (NotDetected) Stl Shigella/EIEC PCR (NotDetected) St Y.enterocolitica PCR (NotDetected) Stool Vibrio (PCR) (NotDetected) Stl Vibrio cholerae PCR (NotDetected) Stl Norovirus GI/GII PCR (NotDetected) PG Care Time/CCT Total # of Minutes Spent Total Time Spent with Patient: Total time spent is greater than 50% in coordination of care (as documented) at patient's floor/unit and/or counseling patient: Coding Level of Care Code 53579 INT INP/OBS CARE 2/55MIN Diagnoses Pancolitis K51.00
--- NOTE | 2024-06-06 10:59 | Hospitalist Progress Note ---
Date of Service June 06, 2024 Assessment & Plan (1) C. difficile diarrhea: (2) Pancolitis: (3) Irritable bowel syndrome with diarrhea: (4) Asymptomatic bacteriuria: (5) DM II (diabetes mellitus, type II), controlled: (6) Liver cirrhosis: (7) Hypothyroidism: Plan Patient with prolonged and multiple courses of treatment for C. difficile colitis. Patient with recurrent symptoms and diarrhea. This episode patient tested negative for C. difficile but rapidly responded to treatment with Dificid. Communication with GI team recommending continuing full course of Dificid, could potentially add Questran for some resulting irritable bowel from her chronic colitis. Consult case management to assist with cost and coverage of Dificid Monitor electrolytes Restart basal insulin, continue short acting insulin for management of her diabetes Patient at this time appears to be asymptomatic from a urinary tract infection standpoint. Urine culture is noted. With her high risk of C. difficile colitis exacerbating will hold on any antibiotic treatment for the urine unless she becomes significantly toxic. Patient may have asymptomatic bacteria or even potentially contaminated from her diarrhea. Encouraged activity Anticipate discharge 1 to 2 days if her symptoms continue to improve Admission and Anticipated Discharge Date Admission Date: June 05, 2024 Subjective Patient reports that her symptoms have significantly improved overnight since starting the Dificid Physical Exam Physical Exam: Constitutional: Alert, nontoxic in appearance HEENT: Mucous membranes moist. Lungs: Clear to auscultation, decreased, no wheezes rales or rhonchi CV: S1-S2, regular Abdomen: Soft, nontender, nondistended Extremities: No significant edema Neuro: No focal deficits Psych: Cooperative, normal mood Results & Data Results & Data Vital Signs (Past 12 Hours) Vital Signs Temp Pulse Pulse Resp BP Pulse Ox O2 Del Method 06/06/24 06:54 36.7 C 65 20 130/72 100 Room Air 06/06/24 03:50 78 14 99 Diagnostic Findings Reviewed imaging, laboratory and diagnostic studies. Pertinent findings as below. Stool bio fire and C. difficile toxin negative Hemoglobin A1c 9.6% Electrolytes within normal range Urine culture is growing gram-negative bacilli
[2024-06-06] MEDS: LANTUS PER UNIT CHARGE SC SCH (12:29)
[2024-06-07] MEDS: traZODone HCL 100 MG TAB PO PRN (01:55)
[2024-06-07 06:36] LABS: Calcium 9.1 mg/dl (8.6-10.3); Creatinine Clr Calc Pharmacy 44.2 ml/min; Est GFR (African American) 63.8 ml/min; Est GFR (Non-African American) 55.1 ml/min; Magnesium 1.4 mg/dl (1.7-2.4); Potassium 4.3 mmol/L (3.5-5.1)
[2024-06-07] MEDS: MAGNESIUM SULFATE / D5W 1 GM/100 ML BAG IV SCH (08:06)
[2024-06-07] MEDS: LANTUS PER UNIT CHARGE SC SCH (09:23)
--- NOTE | 2024-06-07 13:15 | Hospitalist Progress Note ---
Date of Service June 07, 2024 Assessment & Plan (1) C. difficile diarrhea: (2) Pancolitis: (3) Irritable bowel syndrome with diarrhea: (4) Asymptomatic bacteriuria: (5) DM II (diabetes mellitus, type II), controlled: (6) Liver cirrhosis: (7) Hypothyroidism: Plan Patient with persistent diarrhea in the setting of longstanding C. difficile infection, testing negative for C. difficile at this time. Continue Dificid as recommended by GI, appears to be providing some improvement Add Questran for bulking of the stool Replace magnesium Encouraged activity Increase Lantus for better glucose management Monitor electrolytes, renal function and magnesium levels. Anticipate discharge home on Dificid when stools become more manageable and electrolytes stabilized Admission and Anticipated Discharge Date Admission Date: June 05, 2024 Subjective Patient reports she is feeling better but still having stools every 2-3 hours Physical Exam Physical Exam: Constitutional: Alert, nontoxic but fatigued HEENT: Mucous membranes moist. Lungs: Clear to auscultation, decreased, no wheezes rales or rhonchi CV: S1-S2, regular Abdomen: Soft, nontender, nondistended Extremities: No significant edema Neuro: No focal deficits Psych: Cooperative, normal mood Results & Data Results & Data Vital Signs (Past 12 Hours) Vital Signs Temp Pulse Resp BP BP Pulse Ox O2 Del Method 06/07/24 12:03 36.7 C 77 13 119/72 95 Room Air 06/07/24 07:50 Room Air 06/07/24 07:47 36.5 C 74 14 108/67 93 Room Air 06/07/24 06:47 36.3 C L 61 16 122/69 94 Room Air Diagnostic Findings Reviewed imaging, laboratory and diagnostic studies. Pertinent findings as below. Magnesium 1.4
[2024-06-07] MEDS: CHOLESTYRAMINE LIGHT 4 GM PKT PO SCH (22:10)
[2024-06-08 06:43] LABS: Hematocrit (blood only) 37.8 % (37.0-47.0); Hemoglobin 12.5 g/dl (12.0-16.0); Mean Corpuscular Hemoglobin 27.1 pg (25.0-34.0); Mean Corpuscular Hgb Conc 33.1 g/dL (32.0-36.0); Mean Platelet Volume 10.5 fL (9.4-12.4); Nucleated RBC # (auto) 0.02 K/uL (0.00-0.12); Nucleated RBC % (auto) 0.2 %; Platelet Count 165 K/uL (130-400); RDW Coefficient of Variation 13.5 % (11.5-14.5); RDW Standard Deviation 39.8 fL (36.4-46.3); Red Blood Count 4.61 M/uL (4.20-5.40)
[2024-06-08 06:59] LABS: BUN Creatinine Ratio 17.5 (10-20); Calcium 9.7 mg/dl (8.6-10.3); Creatinine Clr Calc Pharmacy 41.1 ml/min; Est GFR (African American) 58.4 ml/min; Est GFR (Non-African American) 50.4 ml/min; Magnesium 1.7 mg/dl (1.7-2.4); Potassium 5.1 mmol/L (3.5-5.1)
--- NOTE | 2024-06-08 12:35 | Hospitalist Progress Note ---
Date of Service June 08, 2024 Assessment & Plan (1) Irritable bowel syndrome with diarrhea: (2) Pancolitis: (3) C. difficile diarrhea: (4) Asymptomatic bacteriuria: (5) DM II (diabetes mellitus, type II), controlled: (6) Liver cirrhosis: (7) Hypothyroidism: Plan Patient with longstanding/recurrent episodes of C. difficile colitis. Imaging consistent with C. difficile colitis, stool testing this hospitalization negative for C. difficile, however patient responding to Dificid Continue Dificid and Questran, stools frequency and consistency improving Confirm prior authorization and affordability of Dificid on Sunday Follow-up with [facility] as outpatient, may need outpatient colonoscopy and biopsies for a persistent noninfectious colitis. Continue management of glucose with insulin, increase Lantus Patient remains asymptomatic from a urinary tract standpoint, suspect chronic bacteriuria, continue to monitor, no plans for treatment with antibiotics at this time Increase probiotics Admission and Anticipated Discharge Date Admission Date: June 05, 2024 Subjective Patient reports stool decreasing in frequency and starting to form Physical Exam Physical Exam: Constitutional: Alert, nontoxic HEENT: Mucous membranes moist. Lungs: Clear to auscultation, decreased, no wheezes rales or rhonchi CV: S1-S2, regular Abdomen: Soft, nontender, nondistended Extremities: No significant edema Neuro: No focal deficits Psych: Cooperative, normal mood Results & Data Results & Data Vital Signs (Past 12 Hours) Vital Signs Temp Pulse Pulse Resp BP Pulse Ox O2 Del Method 06/08/24 11:36 37.1 C 69 12 128/80 96 Room Air 06/08/24 07:42 36.4 C L 76 15 134/62 92 Room Air 06/08/24 03:38 65 12 96 Diagnostic Findings Reviewed imaging, laboratory and diagnostic studies. Pertinent findings as below. CBC, BMP stable Glucoses reviewed
[2024-06-08] MEDS: ADVANCED PROBIOTIC 625 MG CAPSULE PO SCH (20:31)
[2024-06-09] MEDS ORDERED: PHARMACY GLYCEMIC MGMT CONSULT PRN (08:02)
[2024-06-09] MEDS: LANTUS PER UNIT CHARGE SC ONE ×2 (09:22→09:57)
--- NOTE | 2024-06-09 09:57 | Pharmacy Report ---
Pharmacy Glycemic Short Note 2 - Date of Service June 09, 2024 - Glycemic Short BSG Results (Last 24 hours): 06/08/24 06/08/24 06/08/24 12:00 16:49 20:27 POC Glucose 279 H 222 H 220 H 06/09/24 06/09/24 06/09/24 07:42 07:44 09:10 POC Glucose 382 H* 407 H* 367 H* 06/09/24 09:14 POC Glucose 391 H* OUTPATIENT ANTIDIABETIC REGIMEN: * Tresiba 36 units SQ daily * Novolog SSI AC * semaglutide 2mg SQ weekly HbA1C: 9.6% ASSESSMENT: * Pt is a 63 year old female known to the glycemic pharmacy service admitted with IBS. History of DM2 on insulin therapy at home. Pharmacy consulted to a ssist with inpatient glycemic management. * BSGs the last 24h: [phone]/dL. Received 28 units of basal and 52 units of bolus insulin yesterday. * Tolerating diet, other stressors stable. * Lantus 28 units given this AM. Will add an additional 15 units for total basal 43 units this AM. Pt historically requires ~ 55 units/day of basal insulin while admitted. Novolog tightened from 25/6 to 20/5. PLAN FOR INPATIENT GLYCEMIC CONTROL: * Hold outpatient oral diabetes medications * Basal insulin * Lantus 28 + 15 units SQ today X 1- reassess basal in AM * Bolus insulin * NovoLog per scale ACHS or Q6hrs while NPO * Goal Range: Low 110 mg/dL - High 140 mg/dL * Correction Factor: 20 mg/dL/unit * Nutritional / Prandial insulin per carb ratio of 1 unit per 5 grams CHO consumed
--- NOTE | 2024-06-09 16:34 | Hospitalist Progress Note ---
<Statement entered by Olu Barrera, - 06/09/24 17:13> I have seen and examined the patient and have discussed the case with the provider above. I have reviewed the advanced practitioner's documentation, and I agree with, and take responsibility for that plan of care. 8 minutes spent on coordinating care. Patient is steadily improving. Patient reports 2-3 stools yesterday, now starting to have some form. Attempting to make sure patient can get access and afford Dificid Plan of care as outlined below, anticipate discharge tomorrow Date of Service June 09, 2024 Assessment & Plan (1) Pancolitis: (2) Asymptomatic bacteriuria: Plan Jovita Rose is a 63y/o F with PMHx significant for aortic stenosis s/p TAVR [2017], CAD s/p drug-eluting stent to LAD, HFpEF, DM type II, hypothyroidism, HLD, liver cirrhosis 2/2 [place], HTN, questionable paroxysmal atrial fibrillation, DANYELLE intolerant to CPAP, CKD stage III, benign paroxysmal positional vertigo 2/2 bilateral vestibular disorder, schizoaffective disorder, history of breast cancer s/p bilateral mastectomies + chemoradiation [2007], history of colon cancer s/p colon resection, history of GI bleed, history of C. difficile infection and splenic infarcts who presented to the ED via EMS on 06/05/24 for evaluation of dehydration as a result of persistent diarrhea x 10 days. She has been following with [facility] as an outpatient. Was on oral vancomycin for the past month for history of C. difficile colitis in April. Pancolitis: C. diff negative as well as RVP. CTAP consistent for a nonspecific pancolitis. Patient improved on Dificid despite negative stool for C.diff --> will complete full 10-day course per GI recommendation. Questran 4g PRN for diarrhea ordered. Lactose-restricted, dairy free diet as tolerated. Patient will need to follow-up with [facility] to discuss timing of an outpatient colonoscopy. If symptoms recur after course of Dificid and stools still negative, can try cholestyramine. Probiotics increased. Confirm prior authorization and affordability of Dificid with patient's insurance company. Asymptomatic Bacteriuria: Patient asymptomatic from a urinary tract infection standpoint. Urine culture is noted. Patient may have asymptomatic bacteria or the same may even potentially be contaminated from her diarrhea. With her high risk of C. difficile colitis exacerbating, will hold on any ABX treatment for the urine unless she becomes significantly toxic. 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 Basal/bolus regimen while inpatient. BSG checks ACHS. Glycemic pharmacy consulted given complexity. Lantus 28 + 15 units SQ today X 1- reassess basal in AM. Pt historically requires ~ 55 units/day of basal insulin while admitted. Novolog tightened from 25/6 to 20/5. Other Chronic Medical Conditions: CAD s/p stenting, A-fib, hypothyroidism, BPPV, bipolar disorder/schizoaffective disorder --> Can continue home meds for these specific conditions. Use CPAP HS for DANYELLE. DVT Prophylaxis: SQ Heparin Code Status: FULL CODE PCP: Gregory Rausch MD Disposition: Admitted in Med/Surg - PT eval pending. Patient has a caregiver, Stephanie, through waiver services M-[place] from [phone]. Stephanie helps with any needs including bathing and dressing if needed. Patient plans to return home at time of discharge. OT agreeable with patient returning home when medically stable with the continued assistance from her caregiver. Will likely be discharged home tomorrow following PT evaluation. Patient seen in collaboration with Dr. Barrera. Please see addendum. I spent a total of 45 minutes coordinating, documenting, and providing care for this patient excluding time spent in the performance of separately billed services. This included personally reviewing all current laboratories and imaging studies, medical reconciliation, outpatient chart review and discussion with specialists. This chart was completed in part utilizing Speech Voice Recognition Software. Grammatical errors, random word insertions, pronoun errors, and incomplete sentences are an occasional consequence of this system due to software limitations, ambient noise, and hardware issues. Any formal questions or concerns about the content, text, or information contained within the body of this dictation should be directly addressed to the provider for clarification. Admission and Anticipated Discharge Date Admission Date: June 05, 2024 Subjective Patient seen and examined at bedside in room E312-1. She was sleeping when I entered the room. Easily awoken with loud verbal stimuli. Mentions the diarrhea has stopped. Her stools are now starting to form. Denies any abdominal pain. Review of Systems Review of Systems: At least ten systems reviewed and negative, except as noted in the HPI. Physical Exam Physical Exam: General: WD/WN, vitals as above, NAD, laying down in bed, conversing. A+Ox3, euthymic affect. HEENT: Normocephalic, atraumatic. PERRL, conjunctivae normal, anicteric sclerae, oropharynx normal. Respiratory: Normal respiratory effort, lungs clear to auscultation, no wheeze, rales, rhonchi. No accessory muscle use. Cardiovascular: Regular rate, rhythm, no murmur, normal peripheral pulses, no BLE edema. Vessels: No JVD. Abdomen/GI: Normal bowel sounds, soft, mildly tender to deep palpation of lower abdominal region, no hepatosplenomegaly. Extremities/Musculoskeletal: No cyanosis or clubbing, extremities motor strength intact, moves all extremities. Neurologic: EOMI, no focal deficits, CN's II-XI not formally tested but appear grossly intact bilaterally. Skin: No rashes, normal color, warm/dry. Results & Data Results & Data Vital Signs (Past 12 Hours) Vital Signs Temp Pulse Resp BP Pulse Ox O2 Del Method 06/09/24 15:43 37.0 C 74 16 157/70 H 97 Room Air 06/09/24 07:45 Room Air 06/09/24 07:15 36.5 C 84 16 106/65 95 Room Air
[2024-06-10 07:14] VITALS: BP 129/71; PULSE 64; RESP 16; TEMP 97.9; O2SAT 97
[2024-06-10] MEDS: LANTUS PER UNIT CHARGE SC SCH (08:06)
--- NOTE | 2024-06-10 11:08 | Discharge Summary ---
<Statement entered by Olu Barrera, DO - 06/10/24 13:56> I have seen and examined the patient and have discussed the case with the provider above. I have reviewed the advanced practitioner's documentation, and I agree with, and take responsibility for that plan of care. 5 minutes spent on coordinating care Patient doing well. Only 2 stools yesterday Dificid affordable Discharge plans as outlined below Date of Service June 10, 2024 Admission HPI Per Admitting Provider This is a 63 yo F with PMhx of aortic stenosis s/p TAVR in 2017, CAD s/p drug- eluting stent to LAD, heart failure with preserved ejection fraction, DM II, hypothyroidism, hyperlipidemia, cirrhosis secondary to [place], hypertension, questionable paroxysmal atrial fibrillation, obstructive sleep apnea intolerant to CPAP, CKD stage III, benign paroxysmal positional vertigo due to bilateral vestibular disorder, history of schizoaffective disorder, history of breast and colon cancer, history of GI bleed, history of C. difficile infection, history of COVID, history of splenic infarcts. Ms. Rose presents to the hospital with worsening abdominal pain and diarrhea for the past 10 days. She had issues with constipation before this bout of diarrhea started, mentions abd pain and nausea yesterday. She says abd pain in throughout, worse on her left side. This morning she was seen at her PCP office and referred here. Denies any chills, fevers. She has been following with GI as an outpatient, reports that she has been on vancomycin p.o. for the past 1 month for history of C. difficile colitis. She had taken the taper as directed. She took vanc this morning at home. Denies any other antibiotic use. She has never had a fecal transplant. She was sent a Rx for dificid last week however insurance did not cover it, therefore continued the vancomycin. Reports glucose has been high recently. She is off metformin since being diagnosed with cdiff. Takes Ozempic on Mondays. Pt is also on Tresiba. Pt notes some burning with urination last week, reports it went away on its own. She denies urinary frequency, dysuria or issues today. Pt takes cranberry supplement. Dizziness if a symptom she has chronically, but is on meclizine and it works well. Pt is on CPAP HS and notes sleeping well. She does report a frontal headache and takes medications for headaches like a migraine. Admission Exam Per Admitting Provider General Appearance:Moderately built and nourished, no apparent distress Head: normocephalic, Atraumatic Eyes: normal inspection, EOMI Neck: supple, Trachea midline Respiratory/Chest: Normal breath sounds, CTA, S/P B/L mastectomy, no accessory muscle use Cardiovascular: S1, S2, No murmur Abdomen/GI:Soft, mildly distended, L>R lower quadrant tender, Bowel sounds present Extremities/Musculoskeletal:normal inspection, no edema Neurologic/Psych:AAOX3, grossly no focal neurological deficits Skin: normal color, warm Principal Diagnosis Pancolitis, Asymptomatic Bacteriuria Discharge Exam General: WD/WN, vitals as above, NAD, laying down in bed, conversing. A+Ox3, euthymic affect. HEENT: Normocephalic, atraumatic. PERRL, conjunctivae normal, anicteric sclerae, oropharynx normal. Respiratory: Normal respiratory effort, lungs clear to auscultation, no wheeze, rales, rhonchi. No accessory muscle use. Cardiovascular: Regular rate, rhythm, no murmur, normal peripheral pulses, no BLE edema. Vessels: No JVD. Abdomen/GI: Normal bowel sounds, soft, nontender, no hepatosplenomegaly. Extremities/Musculoskeletal: No cyanosis or clubbing, extremities motor strength intact, moves all extremities. Neurologic: EOMI, no focal deficits, CN's II-XI not formally tested but appear grossly intact bilaterally. Skin: No rashes, normal color, warm/dry. Discharge Data Allergies Allergy/AdvReac Type Severity Reaction Status Date / Time glycerin Allergy Intermediate ITCHING, Verified 11/10/23 00:17 BURNING FROM TOPICALS lactose Allergy Intermediate Gastrointestinal Verified 11/10/23 00:17 Upset Penicillins Allergy Intermediate Rash Verified 11/10/23 00:17 adhesive tape AdvReac Intermediate CAN NOT Verified 11/10/23 00:17 TOLERATE BANDAIDS lisinopril AdvReac Intermediate Cough Verified 11/10/23 00:17 monosodium glutamate AdvReac Intermediate EDEMA OF Verified 11/10/23 00:17 HANDS & FEET Consultations 06/05/24 14:00 ED Decision to Admit Stat 06/05/24 14:09 Consult Gastroenterology Routine Ordered Studies 06/05/24 12:01 CT abd pelvis IV con only Stat Diabetes Follow up Diabetes Follow-up Needed for HgbA1c >9% Hospital Course (1) Pancolitis: (2) Asymptomatic bacteriuria: Tammie Rose is a 63y/o F with PMHx significant for aortic stenosis s/p TAVR [2017], CAD s/p drug-eluting stent to LAD, HFpEF, DM type II, hypothyroidism, HL D, liver cirrhosis 2/2 [place], HTN, questionable paroxysmal atrial fibrillation, DANYELLE intolerant to CPAP, CKD stage III, benign paroxysmal positional vertigo 2/2 bilateral vestibular disorder, schizoaffective disorder, history of breast cancer s/p bilateral mastectomies + chemoradiation [2007], history of colon cancer s/p colon resection, history of GI bleed, history of C. difficile infection and splenic infarcts who presented to the ED via EMS on 06/05/24 for evaluation of dehydration as a result of persistent diarrhea x 10 days. [facility]. Was on oral vancomycin for the past month for history of C. difficile colitis in April. Pancolitis: C. diff negative as well as RVP. CTAP consistent for a nonspecific pancolitis. Patient improved on Dificid despite negative stool for C.diff - will complete full 10-day course per GI recommendation. Lactose-restricted, dairy free diet recommended at time of discharge. Patient will need to follow-up with [facility] to discuss timing of an outpatient colonoscopy - referral sent. She is scheduled to follow-up with her PCP at 11AM on 06/13/24. Asymptomatic Bacteriuria: Patient asymptomatic from a urinary tract infection standpoint. Urine culture noted. Patient may have asymptomatic bacteria or the same may even potentially be contaminated from her diarrhea. With her high risk of C. difficile colitis exacerbating, ABX treatment was avoided for the urine as she was asymptomatic and non-toxic in appearance. DM Type II: Basal/bolus regimen utilized while she was inpatient. Can continue home regimen at time of discharge. Close PCP follow-up as per above. Other Chronic Medical Conditions: CAD s/p stenting, A-fib, hypothyroidism, BPPV, bipolar disorder/schizoaffective disorder --> Can continue home meds for these specific conditions at time of discharge. Continue using CPAP HS for DANYELLE. PCP: Gregory Rausch MD Disposition: Patient is being discharged home in stable condition. Patient has a caregiver, Stephanie, through waiver services - from [phone] who will be assisting her with ADLs at home. Patient seen in collaboration with Dr. Barrera. Please see addendum. I spent a total of 65 minutes coordinating, documenting, and providing care for this patient excluding time spent in the performance of separately billed services. This included personally reviewing all current laboratories and imaging studies, medical reconciliation, outpatient chart review and discussion with specialists. This chart was completed in part utilizing Speech Voice Recognition Software. Grammatical errors, random word insertions, pronoun errors, and incomplete sentences are an occasional consequence of this system due to software limitations, ambient noise, and hardware issues. Any formal questions or concerns about the content, text, or information contained within the body of is dictation should be directly addressed to the provider for clarification. Home Health Attestation I certify that this patient is under my care and that I, or a physicians senior agricultural assistant working with me, had a face to-face encounter that meets the home health [id number] encounter requirements with this patient. The encounter with the patient was in whole, or in part, for the following medical condition, which is the primary reason for home health care (list medical condition): I certify that, based on my findings, the following services are medically necessary home health services: My clinical findings support the need for the above services because: Further, I certify that my clinical findings support that this patient is homebound (i.e. absences from home require considerable and taxing effort and are for medical reasons or christianity services or infrequently or of short duration when for other reasons) because: Certification for Home Health Services: Based on the above findings, I certify that this patient is confined to the home and needs intermittent mcfp care, physical therapy and/or speech therapy or continues to need occupational therapy. The patient is under my care, and I have initiated the establishment of the plan of care. This patient will be followed by a physician who will periodically review the plan of care. Total Time Total Time Spent Total Time Spent (In Minutes): 65 Discharge Plan Discharge Items Patient Disposition: Home - Self-Care Reason For Visit: PANCOLITIS, C. DIFF Discharge Diagnosis: Pancolitis, Asymptomatic Bacteriuria Activity: Resume your previous activity Non-emergency contact: Primary Care Provider Call non-emergency contact if: you have any medication questions, your symptoms worsen and you have a fever Follow-up/Referrals: Tia Taylor CRNP [Nurse Practitioner] - (History of C. diff and pancolitis. Recommended to have GI f/u as outpatient, routine outpatient colonoscopy warranted per GI consultation while she was admitted.) Gregory Rausch MD [Primary Care Provider] - (Date & Time 06/13/2024 11:00 AM Provider Gregory Rausch MD Department Family Practice [facility] ) Diet: Regular Diet Comment: LACTOSE FREE Addtl Attending Provider Instructions: Jovita, You were admitted to the hospital secondary to abdominal pain and diarrhea. Admitting imaging showed nonspecific pancolitis. Your C. difficile testing was negative as well as your respiratory viral panel this admission. We started you on Dificid (fidaxomicin) and your symptoms improved. You were seen by the GI specialists while you were hospitalized. They recommended that you complete a full 10-DAY COURSE of DIFICID. There is a prescription for Dificid ready for you to be picked up at [facility] in [place] [[address] There is NO [id number] cost for this medication. Please take the Dificid as prescribed to complete the full 10-day course! You are scheduled to see Dr. Rausch at 11:00AM on 06/13/24, at [facility]. A referral has been placed for you to follow-up with [facility]. Expect to receive a call soon regarding scheduling an appointment with their office! Seek medical attention if you have: * temperature above 101F * chest pain or trouble breathing * abdominal pain, nausea, vomiting * diarrhea, dark stools or bloody stools * any unanswered questions or concerns Call 911 if symptoms are severe. Please take good care of yourself. It has been a pleasure taking care of you. If you have any questions regarding your recent hospitalization please contact [facility] and request [facility] @ [phone]. Pending Studies at Discharge: No Stand-Alone Forms: My [facility], Smoking Cessation Medications and DC Order Prescriptions: New Lactobacillus acidophilus 1 billion cell capsule 1,000 mmu cells PO DAILY Qty: 30 0RF Dificid 200 mg Tablet 200 mg PO BID Qty: 9 0RF Continued atorvastatin [Lipitor] 40 mg tablet 40 mg PO DAILY clopidogrel [Plavix] 75 mg tablet 75 mg PO DAILY levothyroxine 75 mcg tablet 75 mcg PO DAILY meclizine 25 mg tablet 50 mg PO BID trazodone 100 mg tablet 300 mg PO HS PRN (Reason: Insomnia) magnesium oxide 400 mg magnesium tablet 400 mg PO DAILY (DME) FreeStyle Keisha 2 Pettus Misc See Rx Instructions .Route Qty: 1 0RF Rx Instructions: As directed ammonium lactate 12 % lotion 1 applic TOPICAL DAILY Rx Instructions: APPLY TO FEET aspirin 81 mg Tablet,Delayed Release (Dr/Ec) 81 mg PO DAILY nystatin 100,000 unit/gram Powder 1 applic TOPICAL DIRECTED PRN (Reason: Skin Irritation) multivitamin with minerals Tablet 1 tab PO DAILY fluticasone propionate 50 mcg/actuation [place],Suspension 2 spray INTRANASAL DAILY Rx Instructions: administer into each nostril cranberry extract-vitamin C [Azo Cranberry Plus Vit C] 250-60 mg Capsule 2 cap PO TID melatonin 10 mg Tablet 10 mg PO HS insulin degludec [Tresiba FlexTouch U-200] 200 unit/mL (3 mL) Insulin Pen 36 unit SUBCUT DAILY Ozempic 2 mg/dose (8 mg/3 mL) pen injector 2 mg SUBCUT WK Rx Instructions: MONDAYS insulin aspart U-100 [Novolog FlexPen U-100 Insulin] 100 unit/mL (3 mL) Insulin Pen 0 unit subcut TIDM Rx Instructions: 2 UNITS PER 50 WHEN BSG IS OVER 200. metoprolol tartrate 25 mg tablet 50 mg PO BID Gaviscon 80-14.2 mg Tablet,Chewable 1 tab PO DIRECTED PRN (Reason: Gi Upset) gabapentin 300 mg capsule 300 mg PO TID potassium chloride [Klor-Con M10] 10 mEq tablet,ER particles/crystals 10 meq PO BID Discharge Orders: Discharge Order (Routine); Ordered 06/10/24 Ordered By: Gloria Coker Admission Data Admit Date/Time: 06/05/24 14:09 Attending Provider: Olu Barrera Admit Provider: Nathanael Corado Primary Care Provider: Gregory Rausch Other Providers: Nathanael Corado; Andrew Starr
== END 2024-06-10 16:09 | disposition home or self-care (01) | DRG 372 ==
LOC: ED 10:08 → SUATTDRO 14:09 → 3E 14:09

== ENCOUNTER 2024-10-01 15:18 | Inpatient (IN) ==
--- NOTE | 2024-10-01 15:55 | CT Scan Report ---
CT head/brain wo con CLINICAL HISTORY: Neuro deficit, acute, stroke suspected Technique: Contiguous axial CT images of the head were acquired from the base of the skull to the pedro mendoza without intravenous contrast administration. Images were viewed in brain, subdural and [facility]. Automated dose lowering techniques and/or adjustment according to patient size were utilized for this exam. Comparison: Comparison is made to CT head 11/09/2023 Findings: The ventricles, basal cisterns, and cerebral sulci are normal. There is no acute intracranial hemorrh age or evidence of acute territorial infarction. Neither mass effect, shift of the midline structures , nor abnormal extra-axial fluid collections are shown. Imaged portions of the paranasal sinuses and mastoid air cells are clear. The orbits appear normal. There are no acute fractures of the calvaria or scalp swelling. Impression: No acute intracranial hemorrhage, no evidence of acute territorial infarction or other acute intracra nial disease process. ACT 112: Negative or not required by law. Electronically signed by: Wilmer Saunders M.D. 10/01/2024 3:53 PM
[2024-10-01 16:10] LABS: iSTAT Creatinine 1.1 mg/dl (0.6-1.3); iSTAT Hemoglobin 14.3 g/dl (12.0-16.0); iSTAT Ionized Calcium 1.26 mmol/l (1.12-1.32); iSTAT Potassium 4.7 mmol/L (3.3-5.0)
--- NOTE | 2024-10-01 16:14 | XRay Report ---
EXAM: X-ray chest one-view portable CLINICAL HISTORY: Stroke alert PRIORS: 11/09/2023 TECHNIQUE: AP upright chest FINDINGS: Median sternotomy wires present and postsurgical change of the heart, unchanged. The chest is well-expanded. No airspace consolidation, effusion or congestive changes. Heart size is top normal. No pneumothorax. Trachea is patent. Osseous structures demonstrate no acute abnormality. No radiopaque foreign body. IMPRESSION: No plain film evidence of an acute cardiopulmonary process. Electronically signed by Yanna Sagastume 10-01-2024 4:13 PM
[2024-10-01 16:46] LABS: Hematocrit (blood only) 37.2 % (37.0-47.0); Hemoglobin 13.4 g/dl (12.0-16.0); Mean Corpuscular Hemoglobin 28.6 pg (25.0-34.0); Mean Corpuscular Volume 79.3 fL (80.0-100.0); Mean Platelet Volume 10.9 fL (9.4-12.4); Platelet Count 125 K/uL (130-400); RDW Coefficient of Variation 13.4 % (11.5-14.5); RDW Standard Deviation 38.2 fL (36.4-46.3); Red Blood Count 4.69 M/uL (4.20-5.40); White Blood Count 8.52 K/ul (4.8-10.8)
[2024-10-01 16:46] LABS: Albumin Globulin Ratio 1.3 (0.9-2); BUN Creatinine Ratio 16.7 (10-20); Bilirubin,Total 0.7 mg/dl (0.2-1.0); Creatinine Clr Calc Pharmacy 42.4 ml/min; Globulin 3.2 gm/dl (2.5-4.0); Magnesium 1.9 mg/dl (1.7-2.4); Total Protein 7.2 gm/dl (6.0-8.3)
[2024-10-01 16:56] LABS: Potassium 4.1 mmol/L (3.5-5.1)
[2024-10-01 17:42] LABS: Partial Thromboplastin Ratio 0.9; Partial Thromboplastin Time 25 Seconds (21-31); Prothrombin Time 10.9 Seconds (9.0-12.0)
--- NOTE | 2024-10-01 18:12 | History & Physical Report ---
<Statement entered by Olu Barrera, DO - 10/01/24 19:01> I have seen and examined the patient and have discussed the case with the provider above. I have reviewed the advanced practitioner's documentation, and I agree with, and take responsibility for that plan of care. Patient seen and examined with GIO while in the ED. Patient reports having blurred vision and some slurred speech intermittently since yesterday. She reports that her sugar was less than 200 yesterday when she had some of the symptoms. Reports that her sugar really got to be over 400 only today. She denies any unilateral weakness. No coordination issues. Lungs: Clear to auscultation CV: Normal S1-S2 Neuro: Moves all 4 extremities, no definite weakness, speech appears to be clear Diagnostic studies reviewed CTA of the head not performed with ED workup. CTA head now Insulin for diabetes management Stroke eval Patient has a history of paroxysmal atrial fibrillation. Was not started on anticoagulation due to the fact that she had evidence of GI bleeding at the time of initial diagnosis. May need to reconsider full anticoagulation if there does appear to be evidence of stroke with this hospitalization. Plan of care as outlined below Date of Service October 01, 2024 Assessment & Plan (1) Stroke-like symptoms: (2) Hyperglycemia due to type 2 diabetes mellitus: (3) CAD (coronary artery disease): Plan Jovita Rose is a 63y/o F with PMHx significant for aortic stenosis s/p TAVR [2017], CAD s/p drug-eluting stent to LAD, HFpEF, DM type II, hypothyroidism, HLD, liver cirrhosis 2/2 LEYVA, HTN, questionable paroxysmal atrial fibrillation, DANYELLE intolerant to CPAP, CKD stage III, benign paroxysmal positional vertigo 2/2 bilateral vestibular disorder, schizoaffective disorder, history of breast cancer s/p bilateral mastectomies + chemoradiation [2008], history of colon cancer s/p colon resection, history of GI bleed, history of C. difficile infection and splenic infarcts who presented to the ED ED secondary to difficulty speaking x 1 day. #Stroke like sx with intermittent expressive aphasia Admit to med tele Sx have currently resolved Head CT w/o abn Stroke work up with CTA Head and Neck, MRI Brain, Echo, Neurology consultation PT/OT/ST Continue ASA, Plavix, Statin - pt currently on optimal medical management monitor on tele for any arrhythmias will give ASA 324mg x 1 now pt with documented hx of PAF - unsure why she is not anticoagulated but this may need to be explored #T2DM with hyperglycemia a1 on 9.6 in may, will repeat Lantus/Novolog per protocol will give 10 units of IV regular insulin now suspect nonadherence to diabetic regimen for may need 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 Barrera, please see addendum I spent a total of 76minutes reviewing notes, outpatient records, labs, medication, coordinating, documenting and providing care for this patient excluding time spent in the performance of separately billed services. History of Present Illness Chief Complaint: Neuro sx x 1 day. Primary Care Provider: Gregory Rausch MD Jovita Rose is a 63y/o F with PMHx significant for aortic stenosis s/p TAVR [2017], CAD s/p drug-eluting stent to LAD, HFpEF, DM type II, hypothyroidism, HLD, liver cirrhosis 2/2 LEYVA, HTN, questionable paroxysmal atrial fibrillation, DANYELLE intolerant to CPAP, CKD stage III, benign paroxysmal positional vertigo 2/2 bilateral vestibular disorder, schizoaffective disorder, history of breast cancer s/p bilateral mastectomies + chemoradiation [2008], history of colon cancer s/p colon resection, history of GI bleed, history of C. difficile infection and splenic infarcts who presented to the ED ED secondary to difficulty speaking x 1 day. She is trying to say words and then she will slur them and they don't want to come out. She knows what she wants to say but occasionally has trouble getting in out. It has been going on for 1 day. She has had some vision changes over the past 3-4 days, especially when she tries to read. She also reports difficulty walking straight and feeling off balance. She does have a hx of diabetes and she reports checking her blood sugar today was in the 400s and yesterday it was in 180s. She denies any unilateral weakness, facial droop or numbness and tingling. She denies prior history of stroke. She denies any recent illness, fever, chills, sweats, lightheadedness, dizziness, chest pain, shortness of breath, nausea, vomiting or change in her bowel or urinary habits. In ED patient had a blood sugar of 471. Her initial head CT was negative for any acute intracranial abnormality. Allergies Allergy/AdvReac Type Severity Reaction Status Date / Time glycerin Allergy Intermediate ITCHING, Verified 11/10/23 00:17 BURNING FROM TOPICALS lactose Allergy Intermediate Gastrointestinal Verified 11/10/23 00:17 Upset Penicillins Allergy Intermediate Rash Verified 11/10/23 00:17 adhesive tape AdvReac Intermediate CAN NOT Verified 11/10/23 00:17 TOLERATE BANDAIDS lisinopril AdvReac Intermediate Cough Verified 11/10/23 00:17 monosodium glutamate AdvReac Intermediate EDEMA OF Verified 11/10/23 00:17 HANDS & FEET Home Medications Medication Instructions Recorded Confirmed Type atorvastatin 40 mg tablet (Lipitor) 40 mg PO DAILY 05/02/19 10/01/24 History clopidogrel 75 mg tablet (Plavix) 75 mg PO DAILY 05/02/19 10/01/24 History levothyroxine 75 mcg tablet 75 mcg PO DAILY 05/02/19 10/01/24 History meclizine 25 mg tablet 50 mg PO BID 05/02/19 10/01/24 History magnesium oxide 400 mg PO DAILY 02/14/23 10/01/24 History trazodone 100 mg tablet 300 mg PO HS PRN Insomnia 02/14/23 10/01/24 History flash glucose scanning reader #1 ea 02/15/23 10/01/24 Rx (FreeStyle Keisha 2 [place]) ammonium lactate 12 % lotion 1 applic topical DAILY 06/03/23 10/01/24 History aspirin 81 mg tablet,delayed 81 mg PO DAILY 06/03/23 10/01/24 History release cranberry extract-vitamin C 250 2 cap PO TID 06/03/23 10/01/24 History mg-60 mg capsule (Azo Cranberry Plus Vit C) fluticasone propionate 50 2 spray intranasal DAILY 06/03/23 10/01/24 History mcg/actuation nasal spray,suspension insulin degludec 200 unit/mL (3 44 unit subcut DAILY 06/03/23 10/01/24 History mL) subcutaneous pen (Tresiba FlexTouch U-200 insulin) melatonin 10 mg tablet 10 mg PO HS 06/03/23 10/01/24 History multivitamin with minerals 1 tab PO DAILY 06/03/23 10/01/24 History nystatin 100,000 unit/gram topical 1 applic topical DIRECTED PRN 06/03/23 10/01/24 History powder Skin Irritation semaglutide 2 mg/dose (8 mg/3 mL) 2 mg subcut WK 06/03/23 10/01/24 History subcutaneous pen injector (Ozempic) Al hyd-Mg tr-alg ac-sod bicarb 80 1 tab PO DIRECTED PRN Gi Upset 10/27/23 10/01/24 History mg-14.2 mg chewable tablet (Gaviscon) insulin aspart U-100 100 unit/mL 24 unit subcut TIDM 50 UNITS/DAILY 10/27/23 10/01/24 History (3 mL) subcutaneous pen (Novolog FlexPen U-100 Insulin aspart) metoprolol tartrate 25 mg tablet 50 mg PO BID 10/27/23 10/01/24 History gabapentin 300 mg capsule 300 mg PO TID 06/05/24 10/01/24 History potassium chloride 10 mEq 10 meq PO BID 06/05/24 10/01/24 History tablet,extended release(part/cryst) (Klor-Con M) Lactobacillus acidophilus 1 1,000 mmu cells PO DAILY #30 caps 06/10/24 10/01/24 Rx billion cell capsule duloxetine 20 mg capsule,delayed 20 mg PO DAILY 10/01/24 10/01/24 History release topiramate 25 mg tablet 25 mg PO HS 10/01/24 10/01/24 History Past Med/Surg History Problem List Stroke-like symptoms Hypomagnesemia (Acute) Weakness (Acute) Acute renal failure Electrolyte and fluid disorder Metabolic alkalosis Dizziness (Acute) Acute hypokalemia (Acute) Hypoxia (Acute) Acute hyponatremia (Acute) Perforated abdominal viscus Paroxysmal A-fib Respiratory failure Encephalopathy AMS (altered mental status) (Acute) Acute hyperglycemia (Acute) Elevated lactic acid level (Acute) UTI (urinary tract infection) (Acute) Positive blood culture Zoster Encephalitis Acute respiratory failure with hypoxia Thrombocytopenia Sepsis (Acute) Infectious encephalopathy (Acute) Pneumonia (Acute) Hypoxia (Acute) DVT prophylaxis Acute decompensated heart failure Metabolic encephalopathy Severe sepsis Herpes zoster History of percutaneous coronary intervention (Chronic) prior to TAVR in order to protect her left main, she also had a 3.5 x 23 millimeter drug-eluting stent placed in the left main/LAD, which was expanded out into the aorta. Encounter for pre-operative examination Heart murmur (Chronic) SOB (shortness of breath) Aortic valvar stenosis (Chronic) Cataract (Chronic) Heart failure (Chronic) History of removal of breast implant (Chronic) "Left " History of carpal tunnel surgery of left wrist (Chronic) TAVR 2018 History of carpal tunnel surgery of right wrist (Chronic) Previous section (Chronic) H/O colonoscopy (Chronic) S/P mastectomy, bilateral (Chronic) History of partial colectomy (Chronic) History of appendectomy (Chronic) History of hysterectomy with bilateral oophorectomy (Chronic) Medical History Asymptomatic bacteriuria Irritable bowel syndrome with diarrhea Failure of outpatient treatment C. difficile colitis Pancolitis Pancolitis C. difficile diarrhea Acute diarrhea DM II (diabetes mellitus, type II), controlled Diastolic congestive heart failure Atrial fibrillation with rapid ventricular response Aortic stenosis CAD (coronary artery disease) Dyslipidemia Colon cancer Acute hyperglycemia Hypomagnesemia Hypokalemia Intertrigo Chest pain Pulmonary embolism Altered mental status UTI (urinary tract infection) Pleuritic chest pain CKD (chronic kidney disease) stage 3, GFR 30-59 ml/min IDDM (insulin dependent diabetes mellitus) Uterine cancer 2014--sx, no chemo/radiation Breast cancer, right breast 2007--Sx, chemo/radiation Colon cancer 2004--sx, no chemo or radiation Liver cirrhosis non-alcoholic Hypothyroidism Diabetes mellitus, type 2 On anticoagulant therapy Cataract of both eyes Depression Anxiety Aortic valve stenosis Cardiac murmur Follows with Dr. Muniz Hyperlipidemia Hypertension Sleep apnea Cpap Depression with anxiety DANYELLE (obstructive sleep apnea) Hypothyroidism HTN (hypertension) Surgical History Presence of stent in coronary artery S/P TAVR (transcatheter aortic valve replacement) History of cardiac cath x2--2010 @ [facility] [place] Candie [place] 07/2017 @ [facility]-no stent, follows with Dr. Muniz S/P foot surgery, right "foot was widening" History of section x4 H/O breast surgery L implant infected and was removed History of breast reconstruction Bilt breast after masectomy History of bilateral tubal ligation History of dilatation and curettage History of carpal tunnel release bilt History of colonoscopy History of esophagogastroduodenoscopy (EGD) History of total abdominal hysterectomy and bilateral salpingo-oophorectomy 2014 D/T uterine cancer H/O breast biopsy right--malignant H/O bilateral mastectomy 01/2008--breast cancer History of bowel resection 2004 @ [facility] [place] Joyce d/t Colon Cancer History of appendectomy History of open heart surgery 2011 @ [facility] [place] Joyce H/O aortic valve replacement 06/2017 @ [facility] [place] Cris H/O aortic valve replacement #25 Manga aortic valve bioprosthesis placed in 2010, and 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: No Beliefs That Will Affect Care: None marital status: Single marital status details: has fiance Current Living Situation: Alone Current Living Situation Comment: aid from 8-3 M-F Feels Safe at Home: Yes Assistive Devices: Cane, CPAP and Walker Review of Systems Review of Systems: All systems reviewed & are unremarkable except as noted in HPI & below Physical Exam Physical Exam: Constitutional: WD/WN, vitals as above, NAD, sitting up in bed, pleasant, conversing easily Head: Normocephalic, Atraumatic Eyes: PERRL, conjunctivae normal, anicteric sclerae ENMT: external ear and nose normal, oropharynx normal Neck: trachea midline, no thyromegaly normal visual inspection Respiratory: normal respiratory effort, lungs clear to auscultation, no wheeze, rales, rhonchi. Normal insp/exp effort, no accessory muscle use Cardiovascular: RRR, no murmur, no edema Vessels: no JVD or carotid bruit Chest: normal inspection of chest Abdomen: normal bowel sounds, soft, nontender, no hepatosplenomegaly Musculoskeletal: no cyanosis or clubbing, AROM x 4 Skin: no rashes, warm and dry normal turgor Neurologic: no face palsy, no dysarthria CN's II-XI intact bilaterally and moves all extremities Psychiatric: A+Ox3, euthymic affect Lymphatic: no cervical or axillary lymphadenopathy : deferred Results & Data Results & Data Vital Signs (Past 12 Hours) Vital Signs Temp Pulse Pulse Resp BP BP Pulse Ox 10/01/24 18:00 85 19 154/81 H 95 10/01/24 16:56 89 10/01/24 16:19 93 H 12 145/80 H 94 10/01/24 15:23 36.7 C 89 18 139/73 93 O2 Del Method 10/01/24 18:00 Room Air 10/01/24 16:56 10/01/24 16:19 Room Air 10/01/24 15:23 Room Air Laboratory Results I have independently reviewed and interpreted patient's admitting labs including CBC, CMP, PTT, PT/INR, mag and troponin. Diagnostic Findings Chest X-Ray 10/01/24 15:27 EXAM: X-ray chest one-view portable CLINICAL HISTORY: Stroke alert PRIORS: 11/09/2023 TECHNIQUE: AP upright chest FINDINGS: Median sternotomy wires present and postsurgical change of the heart, unchanged. The chest is well-expanded. No airspace consolidation, effusion or congestive changes. Heart size is top normal. No pneumothorax. Trachea is patent. Osseous structures demonstrate no acute abnormality. No radiopaque foreign body. IMPRESSION: No plain film evidence of an acute cardiopulmonary process. Electronically signed by Yanna Sagastume 10-01-2024 4:[address] 10/01/24 15:27 CT head/brain wo con CLINICAL HISTORY: Neuro deficit, acute, stroke suspected Technique: Contiguous axial CT images of the head were acquired from the base of the skull to the vertex without intravenous contrast administration. Images were viewed in brain, subdural and bone windows. Automated dose lowering techniques and/or adjustment according to patient size were utilized for this exam. Comparison: Comparison is made to CT head 11/09/2023 Findings: The ventricles, basal cisterns, and cerebral sulci are normal. There is no acute intracranial hemorrhage or evidence of acute territorial infarction. Neither mass effect, shift of the midline structures, nor abnormal extra-axial fluid collections are shown. Imaged portions of the paranasal sinuses and mastoid air cells are clear. The orbits appear normal. There are no acute fractures of the calvaria or scalp swelling. Impression: No acute intracranial hemorrhage, no evidence of acute territorial infarction or other acute intracranial disease process. ACT 112: Negative or not required by law. Electronically signed by: Wilmer Saunders M.D. 10/01/2024 3:53 PM Medications Administered Medication List Discontinued Medications Aspirin (Aspirin Chew 324 Mg) 324 mg PO NOW STA Stop: 10/01/24 18:14 Last Admin: 10/01/24 18:29 Dose: 324 mg Insulin Human Regular (Novolin-R Insulin Per Unit Charge) 10 units IV NOW STA Stop: 10/01/24 18:09 Last Admin: 10/01/24 18:29 Dose: 10 units ECG Additional Comments: I have independently reviewed and interpreted patient's admitting EKG which revealed: 85, NSR, qtc 461ms,no ST or T wave change COVID-19 Results Results COVID-19 Adm Lab Results: RBC 4.69 M/uL (4.20-5.40) 10/01/24 WBC 8.52 K/ul (4.8-10.8) 10/01/24 Hgb 13.4 g/dl (12.0-16.0) 10/01/24 Hct 37.2 % (37.0-47.0) 10/01/24 Plt Count 125 K/uL (130-400) L 10/01/24 Na 130 mmol/L (136-145) L 10/01/24 K 4.1 mmol/L (3.5-5.1) 10/01/24 Cl 93 mmol/L (98-107) L 10/01/24 CO2 30 mmol/L (21-32) 10/01/24 Anion Gap 7 (3-11) 10/01/24 BUN 19 mg/dl (6-23) 10/01/24 Creatinine 1.14 mg/dl (0.6-1.2) 10/01/24 BUN/Creatinine Ratio 16.7 (10-20) 10/01/24 Glucose Level 471 mg/dl (70-99(Fasting)) H* 10/01/24 Ca 10.0 mg/dl (8.6-10.3) 10/01/24 Total Bilirubin 0.7 mg/dl (0.2-1.0) 10/01/24 AST/SGOT 12 U/L (13-39) L 10/01/24 ALT/SGPT 10 U/L (7-52) 10/01/24 Alkaline Phosphatase 80 U/L (34-104) 10/01/24 Total Protein 7.2 gm/dl (6.0-8.3) 10/01/24 Albumin 4.0 gm/dl (3.4-5.0) 10/01/24 Globulin 3.2 gm/dl (2.5-4.0) 10/01/24 Albumin/Globulin Ratio 1.3 (0.9-2) 10/01/24 PTT 25 Seconds (21-31) 10/01/24 INR 1.0 (0.9-1.1) 10/01/24 Chest X-Ray 10/01/24 Code Status & VTE Plan Code Status FULL CODE VTE Prophylaxis Plan VTE Prophylaxis will be ordered: Yes
--- NOTE | 2024-10-01 18:23 | Emergency Department Note ---
Impression & Plan TIA (transient ischemic attack), Word finding difficulty, Dysarthria, Gait instability ED Provider Note NAME: BRIGIDA ROCA AGE: 63 SEX: F : 1960 ARRIVES VIA: Walk-In INFORMANT: Patient, ED PROVIDER(S): Jazzy Garcia MD CHIEF COMPLAINT: Difficulty with speech HPI: This is a 63-year-old female presents for 1 day history of speech difficulty. Patient notes that yesterday she had episodes of slurred speech as well as word find difficulties. She states she is unable to walk straight and had a rightward gait. She notes no weakness numbness or tingling to any of her extremities. She currently on Plavix. No falls or trauma. This never happened before. No history of strokes or TIA. She is a diabetic otherwise. ROS: See above HPI for pertinent positives & negatives. A total of 10 systems reviewed and were otherwise negative. PAST MEDICAL HISTORY: See Below PAST SURGICAL HISTORY: See Below FAMILY HISTORY: See Below SOCIAL HISTORY: See Below HOME MEDICATIONS: See Below ALLERGIES: See Below VITALS: See Below PHYSICAL EXAMINATION: General: resting comfortably in no acute distress Head: Normocephalic and atraumatic Eyes: Normal inspection, extraocular muscles intact Ear, nose, throat: Normal external exam Neck: Normal range of motion Respiratory: lungs clear to auscultation bilaterally Cardiovascular: Regular rate/rhythm, no murmur GI: soft, nontender, no guarding or rebound Extremities: nontender, moves all extremities Neuro: The patient awake and alert, appropriately conversive, no focal deficits, symmetric faces, cranial nerves 2 through 12 grossly intact, no motor drift Skin: Warm, dry, and intact MEDICAL DECISION MAKING: This is a 63-year-old female present for 1 day history of speech difficulty. Patient symptoms have resolved today but she had difficulty yesterday with slurred speech as well as word fine difficulty. She has no current motor deficits on exam. Concern for TIA/stroke. -Bloodwork is reviewed showing no significant leukocytosis, anemia, electrolyte or creatinine abnormality. Significantly hyperglycemic to 471 without DKA -CT of the head reveals no intracranial process at this time -Patient current negative workup, will admit for further TIA/stroke workup Differential diagnosis: , Stroke, TIA, cephalopathy, meningitis, vertigo Independent History obtained from: Caregiver Diagnostics interpreted by me: ECG: ECG independently interpreted by me with normal sinus rhythm, rate of 85, left axis deviation, normal [place], intraventricular conduction delay, normal QTc, no ST segment elevations consistent with STEMI criteria Cardiac Monitoring: An order was placed for continuous cardiac monitoring. The monitor shows a rate of 75 with sinus rhythm. Past Med/Surg History Problem List Gait instability (Acute) Dysarthria (Acute) Word finding difficulty (Acute) TIA (transient ischemic attack) (Acute) Stroke-like symptoms Hypomagnesemia (Acute) Weakness (Acute) Acute renal failure Electrolyte and fluid disorder Metabolic alkalosis Dizziness (Acute) Acute hypokalemia (Acute) Hypoxia (Acute) Acute hyponatremia (Acute) Perforated abdominal viscus Paroxysmal A-fib Respiratory failure Encephalopathy AMS (altered mental status) (Acute) Acute hyperglycemia (Acute) Elevated lactic acid level (Acute) UTI (urinary tract infection) (Acute) Positive blood culture Zoster Encephalitis Acute respiratory failure with hypoxia Thrombocytopenia Sepsis (Acute) Infectious encephalopathy (Acute) Pneumonia (Acute) Hypoxia (Acute) DVT prophylaxis Acute decompensated heart failure Metabolic encephalopathy Severe sepsis Herpes zoster History of percutaneous coronary intervention (Chronic) prior to TAVR in order to protect her left main, she also had a 3.5 x 23 millimeter drug-eluting stent placed in the left main/LAD, which was expanded out into the aorta. Encounter for pre-operative examination Heart murmur (Chronic) SOB (shortness of breath) Aortic valvar stenosis (Chronic) Cataract (Chronic) Heart failure (Chronic) History of removal of breast implant (Chronic) "Left " History of carpal tunnel surgery of left wrist (Chronic) TAVR 2018 History of carpal tunnel surgery of right wrist (Chronic) Previous section (Chronic) H/O colonoscopy (Chronic) S/P mastectomy, bilateral (Chronic) History of partial colectomy (Chronic) History of appendectomy (Chronic) History of hysterectomy with bilateral oophorectomy (Chronic) Medical History Asymptomatic bacteriuria Irritable bowel syndrome with diarrhea Failure of outpatient treatment C. difficile colitis Pancolitis Pancolitis C. difficile diarrhea Acute diarrhea DM II (diabetes mellitus, type II), controlled Diastolic congestive heart failure Atrial fibrillation with rapid ventricular response Aortic stenosis CAD (coronary artery disease) Dyslipidemia Colon cancer Acute hyperglycemia Hypomagnesemia Hypokalemia Intertrigo Chest pain Pulmonary embolism Altered mental status UTI (urinary tract infection) Pleuritic chest pain CKD (chronic kidney disease) stage 3, GFR 30-59 ml/min IDDM (insulin dependent diabetes mellitus) Uterine cancer 2014--sx, no chemo/radiation Breast cancer, right breast 2007--Sx, chemo/radiation Colon cancer 2004--sx, no chemo or radiation Liver cirrhosis non-alcoholic Hypothyroidism Diabetes mellitus, type 2 On anticoagulant therapy Cataract of both eyes Depression Anxiety Aortic valve stenosis Cardiac murmur Follows with Dr. Muniz Hyperlipidemia Hypertension Sleep apnea Cpap Depression with anxiety DANYELLE (obstructive sleep apnea) Hypothyroidism HTN (hypertension) Surgical History Presence of stent in coronary artery S/P TAVR (transcatheter aortic valve replacement) History of cardiac cath x2--2010 @ [facility] 07/2017 @ [facility]-no stent, follows with Dr. Muniz S/P foot surgery, right "foot was widening" History of section x4 H/O breast surgery L implant infected and was removed History of breast reconstruction Bilt breast after masectomy History of bilateral tubal ligation History of dilatation and curettage History of carpal tunnel release bilt History of colonoscopy History of esophagogastroduodenoscopy (EGD) History of total abdominal hysterectomy and bilateral salpingo-oophorectomy 2014 D/T uterine cancer H/O breast biopsy right--malignant H/O bilateral mastectomy 01/2008--breast cancer History of [place] [facility] [place]/t Colon Cancer History of appendectomy History of open heart surgery 2011 [place] [facility] [place] H/O aortic valve replacement 06/2017 [place] [facility] [place] H/O aortic valve replacement #25 Manga aortic valve bioprosthesis placed in 2010, and 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 On 11/06/2017 she underwent transcatheter aortic valve replacement receiving a 26 mm Hernandez-Bing S3 prosthesis Family History Grandmother Family history of diabetes mellitus maternal Family/Other Family history of diabetes mellitus paternal aunt Father , of premature CAD Coronary heart disease Mother , of premature CAD Coronary heart disease Social History Smoking Status: Never smoker Second Hand Exposure: No; Do You Dip or Chew Tobacco: No; Hx Alcohol Use: Yes Alcohol type: beer and wine Hx Substance Use: No Preferred Language: Central African Communication Ability: Effective [employer] Loan [employer] Required: No Beliefs That Will Affect Care: None marital status: Single marital status details: has fiance Current Living Situation: Alone Current Living Situation Comment: aid from 8-3 M-F Feels Safe at Home: Yes Assistive Devices: Cane, CPAP and Walker Allergies Allergies Allergy/AdvReac Type Severity Reaction Status Date / Time glycerin Allergy Intermediate ITCHING, Verified 11/10/23 00:17 BURNING FROM TOPICALS lactose Allergy Intermediate Gastrointestinal Verified 11/10/23 00:17 Upset Penicillins Allergy Intermediate Rash Verified 11/10/23 00:17 adhesive tape AdvReac Intermediate CAN NOT Verified 11/10/23 00:17 TOLERATE BANDAIDS lisinopril AdvReac Intermediate Cough Verified 11/10/23 00:17 monosodium glutamate AdvReac Intermediate EDEMA OF Verified 11/10/23 00:17 HANDS & FEET Home Meds Home Medications Medication Instructions Recorded Confirmed atorvastatin 40 mg tablet (Lipitor) 40 mg PO DAILY 05/02/19 10/01/24 clopidogrel 75 mg tablet (Plavix) 75 mg PO DAILY 05/02/19 10/01/24 levothyroxine 75 mcg tablet 75 mcg PO DAILY 05/02/19 10/01/24 meclizine 25 mg tablet 50 mg PO BID 05/02/19 10/01/24 magnesium oxide 400 mg PO DAILY 02/14/23 10/01/24 trazodone 100 mg tablet 300 mg PO HS PRN Insomnia 02/14/23 10/01/24 ammonium lactate 12 % lotion 1 applic topical DAILY 06/03/23 10/01/24 aspirin 81 mg tablet,delayed 81 mg PO DAILY 06/03/23 10/01/24 release cranberry extract-vitamin C 250 2 cap PO TID 06/03/23 10/01/24 mg-60 mg capsule (Azo Cranberry Plus Vit C) fluticasone propionate 50 2 spray intranasal DAILY 06/03/23 10/01/24 mcg/actuation nasal spray,suspension insulin degludec 200 unit/mL (3 44 unit subcut DAILY 06/03/23 10/01/24 mL) subcutaneous pen (Tresiba FlexTouch U-200 insulin) melatonin 10 mg tablet 10 mg PO HS 06/03/23 10/01/24 multivitamin with minerals 1 tab PO DAILY 06/03/23 10/01/24 nystatin 100,000 unit/gram topical 1 applic topical DIRECTED PRN 06/03/23 10/01/24 powder Skin Irritation semaglutide 2 mg/dose (8 mg/3 mL) 2 mg subcut WK 06/03/23 10/01/24 subcutaneous pen injector ([employer]) Al hyd-Mg tr-alg ac-sod bicarb 80 1 tab PO DIRECTED PRN Gi Upset 10/27/23 10/01/24 mg-14.2 mg chewable tablet (Gaviscon) insulin aspart U-100 100 unit/mL 24 unit subcut TIDM 50 UNITS/DAILY 10/27/23 10/01/24 (3 mL) subcutaneous pen (Novolog FlexPen U-100 Insulin aspart) metoprolol tartrate 25 mg tablet 50 mg PO BID 10/27/23 10/01/24 gabapentin 300 mg capsule 300 mg PO TID 06/05/24 10/01/24 potassium chloride 10 mEq 10 meq PO BID 06/05/24 10/01/24 tablet,extended release(part/cryst) (Klor-Con M) duloxetine 20 mg capsule,delayed 20 mg PO DAILY 10/01/24 10/01/24 release topiramate 25 mg tablet 25 mg PO HS 10/01/24 10/01/24 Previous Rx's Medication Instructions Recorded flash glucose scanning reader #1 ea 02/15/23 (FreeStyle Keisha 2 [place]) Lactobacillus acidophilus 1 1,000 mmu cells PO DAILY #30 caps 06/10/24 billion cell capsule Results & Data (ED) Vital Signs Vital Signs - 24 hr 10/01/24 15:23 10/01/24 16:19 10/01/24 16:56 Temperature 36.7 C Temperature Source Temporal Artery Scan Pulse Rate 89 89 Pulse Rate [Apical] 93 H Pulse Rhythm Regular Pulse Strength Normal Respiratory Rate 18 12 Respiratory Effort / Characteristics Non-Labored Spontaneous Respiratory Depth Normal Respiratory Pattern Regular Blood Pressure 139/73 Blood Pressure [Right Arm] 145/80 H Blood Pressure Mean 95 Blood Pressure Mean [Right Arm] 101 Blood Pressure Position Sitting Pulse Oximetry 93 94 Oxygen Delivery Method Room Air Room Air Sepsis Recent Fever Within 48 Hours No Sepsis New/Unexplained Change in Mental Status No Sepsis Action Taken by Nursing No Action Required 10/01/24 18:00 Temperature Temperature Source Pulse Rate Pulse Rate [Apical] 85 Pulse Rhythm Pulse Strength Respiratory Rate 19 Respiratory Effort / Characteristics Respiratory Depth Respiratory Pattern Blood Pressure Blood Pressure [Right Arm] 154/81 H Blood Pressure Mean Blood Pressure Mean [Right Arm] 105 Blood Pressure Position Pulse Oximetry 95 Oxygen Delivery Method Room Air Sepsis Recent Fever Within 48 Hours Sepsis New/Unexplained Change in Mental Status Sepsis Action Taken by Nursing Laboratory Data 10/01/24 16:31 10/01/24 15:52 Lab Results 10/01/24 10/01/24 10/01/24 Range/Units 15:52 15:58 16:31 WBC Cancelled 8.52 RBC Cancelled 4.69 Hgb Cancelled 13.4 POC Hgb 14.3 (12.0-16.0) g/dl Hct Cancelled 37.2 POC Hct 42 (37-47) % MCV Cancelled 79.3 L MCH Cancelled 28.6 MCHC Cancelled 36.0 RDW Std Deviation Cancelled 38.2 RDW Coeff of Valerio Cancelled 13.4 Plt Count Cancelled 125 L MPV Cancelled 10.9 Absolute Nucleated RBC Cancelled Nucleated RBC % (auto) Cancelled Platelet Estimate Cancelled PT Cancelled INR Cancelled APTT Cancelled PTT Ratio Cancelled POC Sodium 130 L (135-144) mmol/L Sodium 130 L (136-145) mmol/L POC Potassium 4.7 (3.3-5.0) mmol/L Potassium 4.1 (3.5-5.1) mmol/L POC Chloride 93 L (101-112) mmol/L Chloride 93 L (98-107) mmol/L Carbon Dioxide 30 (21-32) mmol/L POC Total CO2 30 (24-31) mmol/L Anion Gap 7 (3-11) POC Anion Gap 14.0 L (16-25) mmol/L POC BUN 21 H (7-18) mg/dl BUN 19 (6-23) mg/dl Creatinine 1.14 (0.6-1.2) mg/dl POC Creatinine 1.1 (0.6-1.3) mg/dl Est Cr Clr Drug Dosing 42.4 ml/min eGFR 53.42 BUN/Creatinine Ratio 16.7 (10-20) Glucose 471 H* (70-99(Fasting)) mg/dl POC Glucose (other) 459 H* (70-99) mg/dl Calcium 10.0 (8.6-10.3) mg/dl POC Ioniz Calcium Marek 1.26 (1.12-1.32) mmol/l Magnesium 1.9 (1.7-2.4) mg/dl Total Bilirubin 0.7 (0.2-1.0) mg/dl AST 12 L (13-39) U/L ALT 10 (7-52) U/L Alkaline Phosphatase 80 (34-104) U/L Total Protein 7.2 (6.0-8.3) gm/dl Albumin 4.0 (3.4-5.0) gm/dl Globulin 3.2 (2.5-4.0) gm/dl Albumin/Globulin Ratio 1.3 (0.9-2) 10/01/24 Range/Units 16:32 WBC RBC Hgb POC Hgb (12.0-16.0) g/dl Hct POC Hct (37-47) % MCV MCH MCHC RDW Std Deviation RDW Coeff of Valerio Plt Count MPV Absolute Nucleated RBC Nucleated RBC % (auto) Platelet Estimate PT 10.9 INR 1.0 APTT 25 PTT Ratio 0.9 POC Sodium (135-144) mmol/L Sodium (136-145) mmol/L POC Potassium (3.3-5.0) mmol/L Potassium (3.5-5.1) mmol/L POC Chloride (101-112) mmol/L Chloride (98-107) mmol/L Carbon Dioxide (21-32) mmol/L POC Total CO2 (24-31) mmol/L Anion Gap (3-11) POC Anion Gap (16-25) mmol/L POC BUN (7-18) mg/dl BUN (6-23) mg/dl Creatinine (0.6-1.2) mg/dl POC Creatinine (0.6-1.3) mg/dl Est Cr Clr Drug Dosing ml/min eGFR BUN/Creatinine Ratio (10-20) Glucose (70-99(Fasting)) mg/dl POC Glucose (other) (70-99) mg/dl Calcium (8.6-10.3) mg/dl POC Ioniz Calcium Marek (1.12-1.32) mmol/l Magnesium (1.7-2.4) mg/dl Total Bilirubin (0.2-1.0) mg/dl AST (13-39) U/L ALT (7-52) U/L Alkaline Phosphatase (34-104) U/L Total Protein (6.0-8.3) gm/dl Albumin (3.4-5.0) gm/dl Globulin (2.5-4.0) gm/dl Albumin/Globulin Ratio (0.9-2) Administered Medications Discontinued Medications Aspirin (Aspirin Chew 324 Mg) 324 mg PO NOW STA Stop: 10/01/24 18:14 Last Admin: 10/01/24 18:29 Dose: 324 mg Documented By: JEREMIE Insulin Human Regular (Novolin-R Insulin Per Unit Charge) 10 units IV NOW STA Stop: 10/01/24 18:09 Last Admin: 10/01/24 18:29 Dose: 10 units Documented By: JEREMIE Co-signed By: KAVITA Imaging Data Radiologist's Impression: Chest X-Ray 10/01/24 15:27 EXAM: X-ray chest one-view portable CLINICAL HISTORY: Stroke alert PRIORS: 11/09/2023 TECHNIQUE: AP upright chest FINDINGS: Median sternotomy wires present and postsurgical change of the heart, unchanged. The chest is well-expanded. No airspace consolidation, effusion or congestive changes. Heart size is top normal. No pneumothorax. Trachea is patent. Osseous structures demonstrate no acute abnormality. No radiopaque foreign body. IMPRESSION: No plain film evidence of an acute cardiopulmonary process. Electronically signed by Yanna Sagastume 10-01-2024 4:[address] 10/01/24 15:27 CT head/brain wo con CLINICAL HISTORY: Neuro deficit, acute, stroke suspected Technique: Contiguous axial CT images of the head were acquired from the base of the skull to the vertex without intravenous contrast administration. Images were viewed in brain, subdural and bone windows. Automated dose lowering techniques and/or adjustment according to patient size were utilized for this exam. Comparison: Comparison is made to CT head 11/09/2023 Findings: The ventricles, basal cisterns, and cerebral sulci are normal. There is no acute intracranial hemorrhage or evidence of acute territorial infarction. Neither mass effect, shift of the midline structures, nor abnormal extra-axial fluid collections are shown. Imaged portions of the paranasal sinuses and mastoid air cells are clear. The orbits appear normal. There are no acute fractures of the calvaria or scalp swelling. Impression: No acute intracranial hemorrhage, no evidence of acute territorial infarction or other acute intracranial disease process. ACT 112: Negative or not required by law. Electronically signed by: Wilmer Saunders M.D. 10/01/2024 3:53 PM Discharge Plan Visit Data Chief Complaint: TIA Symptoms Stated Complaint: SLURRED SPEECH, DIZZY, BLURRY VISION ED Provider: Jazzy Garcia Discharge Problem: TIA (transient ischemic attack), Word finding difficulty, Dysarthria, Gait instability
[2024-10-01] MEDS: ASPIRIN CHEW 324 MG PO STA (18:29)
[2024-10-01] MEDS: NovoLIN-R INSULIN PER UNIT CHARGE IV STA (18:29)
--- NOTE | 2024-10-01 22:20 | Magnetic Resonance Report ---
Exam(s): MRI HEAD Without Contrast EXAM: MR Head Without Intravenous Contrast CLINICAL HISTORY: Reason for exam: stroke like sx. TECHNIQUE: Magnetic resonance images of the head/brain without intravenous contrast in multiple planes. COMPARISON: CT head 10/01/24; MRI brain 06/05/23 FINDINGS: Brain: No diffusion restriction to suggest acute cerebral ischemia. No evidence of acute intracranial hemorrhage. Subtle gyriform hemosiderin staining in the right frontal region (series 6, image 18) may represent old hemorrhage. Generalized parenchymal volume loss. Minimal periventricular deep cerebral white matter FLAIR signal hyperintensity suggesting minimal chronic small vessel ischemic change. Proximal intracranial flow voids appear normal. Ventricles: Unremarkable. No hydrocephalus. Bones/joints: Unremarkable. No acute fracture. Sinuses: Unremarkable as visualized. Mastoid air cells: Right mastoid effusion. Orbits: Lens replacements. IMPRESSION: No acute findings in the head/brain. Electronically signed by: Mere Rojas M.D. 10/01/24 22:19 PM
[2024-10-01] MEDS: OPTIRAY 320 125ml IV ONE (22:23)
[2024-10-01] MEDS ORDERED: ONDANSETRON INJ 2 MG/ML 2 ML VIAL IV PRN (22:35)
[2024-10-01] MEDS ORDERED: GLUCOSE 40% GEL 15 GM TUBE PO PRN (22:35)
[2024-10-01] MEDS ORDERED: PHARMACIST DISCHARGE MED REC CONSULT PRN (22:35)
[2024-10-01] MEDS ORDERED: DEXTROSE 50% 50 ML SYRINGE IV PRN (22:35)
[2024-10-01] MEDS ORDERED: GLUCOSE 10 TAB/TUBE PO PRN (22:35)
[2024-10-01] MEDS ORDERED: ACETAMINOPHEN 325 MG TAB PO PRN (22:35)
[2024-10-01] MEDS ORDERED: PHARMACY GLYCEMIC MGMT CONSULT PRN (22:35)
[2024-10-01] MEDS ORDERED: ALUMINUM/MAGNESIUM SUSP 30 ML UDC PO PRN (22:35)
[2024-10-01] MEDS ORDERED: CARBOHYDRATES FOR HYPOGLYCEMIA PO PRN (22:35)
[2024-10-01] MEDS ORDERED: GLUCAGON FOR INJ 1 MG VIAL SQ PRN (22:35)
--- NOTE | 2024-10-01 22:50 | CT Scan Report ---
Exam(s): CTA HEAD With Contrast IV Amt: 118 ml optiray 320 EXAM: CT Angiography Head With Intravenous Contrast CLINICAL HISTORY: Reason for exam: stroke like sx. TECHNIQUE: Axial computed tomographic angiography images of the head with intravenous contrast. CTDI is 20.76 mGy and DLP is 458.33 mGy-cm. Automated exposure control was utilized for the study. A dose lowering technique was utilized adhering to the principles of ALARA. MIP reconstructed images were created and reviewed. CONTRAST: Patient received 118 ml optiray 320 of IV contrast COMPARISON: Same day CT, MRI FINDINGS: Right internal carotid artery: No acute findings. Intracranial segment is patent with no significant stenosis. No aneurysm. Right anterior cerebral artery: Unremarkable. No occlusion or significant stenosis. No aneurysm. Right middle cerebral artery: Unremarkable. No occlusion or significant stenosis. No aneurysm. Right posterior cerebral artery: Unremarkable. No occlusion or significant stenosis. No aneurysm. Right vertebral artery: Right vertebral artery terminates in PICA, a developmental variant. Left internal carotid artery: No acute findings. Intracranial segment is patent with no significant stenosis. No aneurysm. Left anterior cerebral artery: Unremarkable. No occlusion or significant stenosis. No aneurysm. Left middle cerebral artery: Unremarkable. No occlusion or significant stenosis. No aneurysm. Left posterior cerebral artery: Unremarkable. No occlusion or significant stenosis. No aneurysm. Left vertebral artery: Unremarkable as visualized. Basilar artery: Unremarkable. No occlusion or significant stenosis. No aneurysm. IMPRESSION: Patent intracranial circulation. Electronically signed by: Mere Rojas M.D. 10/01/24 22:49 PM
--- NOTE | 2024-10-01 22:51 | CT Scan Report ---
Exam(s): CTA NECK With Contrast IV Amt: 118 ml optiray 320 EXAM: CT Angiography Neck With Intravenous Contrast CLINICAL HISTORY: Reason for exam: stroke like sx. TECHNIQUE: Routine carotid CT angiography protocol was performed with intravenous contrast. NASCET criteria using the distal ICAs for comparison were used for evaluation of stenoses. CTDI is 20.76 mGy and DLP is 4558.33 mGy-cm. Automated exposure control was utilized for the study. A dose lowering technique was utilized adhering to the principles of ALARA. MIP reconstructed images were created and reviewed. CONTRAST: Patient received 118 ml optiray 320 of IV contrast COMPARISON: None. FINDINGS: VASCULATURE: Right common carotid artery: Unremarkable. No occlusion or significant stenosis. No dissection. Right internal carotid artery: Calcific plaque proximal right ICA without significant stenosis. No dissection. Right external carotid artery: Unremarkable. No occlusion. Right vertebral artery: Unremarkable. No occlusion or significant stenosis. No dissection. Left common carotid artery: Unremarkable. No occlusion or significant stenosis. No dissection. Left internal carotid artery: Calcific plaque proximal left ICA without significant stenosis. No dissection. Left external carotid artery: Unremarkable. No occlusion. Left vertebral artery: Unremarkable. No occlusion or significant stenosis. No dissection. Aorta: Conventional aortic arch branch anatomy. NECK: Bones/joints: Unremarkable. No acute fracture. Soft tissues: Unremarkable. Thyroid: Subcentimeter left thyroid lobe nodule; no follow-up indicated based on size criteria. Lung apices: Clear. CAROTID STENOSIS REFERENCE USING NASCET CRITERIA: % ICA stenosis = (1 - narrowest ICA diameter/diameter of distal cervical ICA) x 100. Mild - <50% stenosis. Moderate - 50-69% stenosis. Severe - 70-94% stenosis. Near occlusion - 95-99% stenosis. Occluded - 100% stenosis. IMPRESSION: No dissection, hemodynamically significant stenosis, or occlusion. Electronically signed by: Mere Rojas M.D. 10/01/24 22:51 PM
[2024-10-01] MEDS: INSULIN ASPART PER UNIT CHARGE SC SCH (23:19)
[2024-10-01] MEDS: TOPIRAMATE 25 MG TAB PO SCH (23:21)
[2024-10-01] MEDS: POTASSIUM CHLORIDE 10 MEQ TABCR PO SCH (23:21)
[2024-10-01] MEDS: METOPROLOL TARTRATE 50 MG TAB PO SCH (23:22)
[2024-10-01] MEDS: MECLIZINE HCL 25 MG TAB PO SCH (23:22)
[2024-10-01] MEDS: GABAPENTIN 300 MG CAP PO SCH (23:22)
[2024-10-02 03:07] LABS: Appearance Urine Clear (Clear); Bacteria Urine Automated 1+ (None Seen); Bilirubin Urine Negative (Negative); Blood Urine Negative (Negative); Cast Urine Automated 0-2 /lpf (0-2); Color Urine Yellow; Glucose Urine UA Trace (Negative); Ketones Urine Negative (Negative); Leukocyte Esterase Urine 2+ (Negative); Nitrite Urine Negative (Negative); Protein Urine Negative (Negative); RBC Urine Automated 0-2 /hpf (0-2); Specific Gravity Urine 1.024 (1.000-1.030); Urobilinogen Urine Negative (Negative); WBC Urine Automated 21-50 /hpf (0-5)
--- OUTSIDE RECORDS SUMMARY | 2024-10-02 03:18 | External Medical Summary ---
Author Name Unknown Address Unknown Organization [id number]:[facility] [place] [address] Laboratory Report Ordering Provider Test Date Status MTM,PHARMACIST1 09/30/2024 11:36:39 Final Observation Date Value Abnormality Reference (Units ) Status HbA1C 09/30/2024 11:36:39 10.7 Above high normal 4. 0-5.6 (%) Final Performing Location [facility] [place] [id number]
--- OUTSIDE RECORDS SUMMARY | 2024-10-02 03:18 | External Medical Summary | Summary of Care ---
Author Name Unknown Organization [facility] Address [address] [place] [address] Phone [phone] Care Team Providers Care Registrar [employer] Name Role Phone Gregory Rausch MD Primary Care Provider [phone] Reason for Visit * Reason Onset Date Comments Information 09/25/2024 Medication Pre-auth 09/25/2024 Omnipod 5 De [id number] Pods Gen 5 - received [employer] message that pa was started in cover my meds HYATT [id number] Encounter Details Date Type Department Care Team (Late st Contact Info) Description 09/25/2024 Telephone Centralized Clinical Pharmacy Services, Cindy Da Silva [address] [place] [address] [place] [address] Pharmacist1, [facility] [address] [facility] [id number] Information; Medication Pre-auth (Omnipod ... Allergies Active Allergy Reactions Criticality Noted Date Comments Adhesive Tape 07/02/2017 Can tolerate band-aids Glycerin Other (Please comment) 03/12/2008 Topical agents with glycein-burning & itching Lactose 12/09/2014 Dairy - gas Lisinopril Cough 01/21/2010 Monosodium Glutamate Edema Other 03/12/2008 Hands and feet Penicillins Rash 11/14/2007 documented as of this encounter (statuses as of 09/29/2024) Medications aspirin enteric coated 81 MG TBECIndications:Ao rtic valve disorder Take 1 Tab by mouth daily. 90 Tab 11 09/30/19 19 Active AZO Cranberry 250-30 MG Oral Tablet Take 1 Tablet by mouth in the morning and 1 Tablet before bedtime. Active BD Glucose 5 GM Oral Tablet Chewable (Glucose)Indicatio ns:DM type 2, not at goal ([facility]) 3 every 15 minutes until [...] as directed as needed 200 Each 5 03/14/20 24 Active Aquaphor External Ointment Apply topically to affected area as needed for Dry Skin. Apply to face 420 g 01/10/20 24 Active Ammonium Lactate 12 % External Lotion (Lac-Hydrin) Apply to both feet once daily. 400 g 2 01/10/20 24 Active Insulin Aspart 100 UNIT/ML Injection Solution (NovoLOG)Indicatio ns:Type 2 diabetes mellitus with hemoglobin A1c goal of less than 7.0% ([facility]) Use up to 50 units per day in Omnipod. 03/31/20 24 Active Loperamide HCl 2 MG Oral Capsule (Imodium A-D) Take 1 Capsule by mouth 4 times a day as needed for Diarrhea. Active Saccharomyces boulardii 250 MG Oral Capsule (Florastor) Take 1 Capsule by mouth in the morning and 1 Capsule before bedtime. 60 Capsule 05/06/20 24 Active DULoxetine HCl 20 MG Oral Capsule Delayed Release Particles (Cymbalta) Take 1 Capsule by mouth in the morning. 30 Capsule 1 06/02/20 24 Active Gabapentin 300 MG Oral Capsule (Neurontin) Take 1 Capsule by mouth in the morning and 1 Capsule at noon and 1 Capsule before bedtime. 90 Capsule 2 06/16/20 24 Active Meclizine HCl 25 MG Oral Tablet (Antivert)Indicati ons:Muscle tension headache Take 2 Tablets by mouth 2 times a day. 360 Tablet 06/16/20 24 Active Ozempic (2 MG/DOSE) 8 MG/3ML Subcutaneous Solution Pen-injector (Semaglutide (2 MG/DOSE))Indicatio ns:weekly on fridays Inject 2 mg under the skin once a week. 9 mL 1 06/16/20 24 Active Additional Information Patient taking differently:2 mg Subcutaneous QWEEK,Tuesdays, Indications: weekly on fridays, Reported on 08/12/2024 Fluticasone Propionate 50 MCG/ACT Nasal Suspension (Flonase)Indicatio ns:Dizziness Administer 2 Sprays into each nostril in the morning. 16 g 3 06/17/20 24 Active Tresiba FlexTouch 200 UNIT/ML Subcutaneous Solution Pen-injector (Insulin Degludec)Indicatio ns:Type 2 diabetes mellitus with hemoglobin A1c goal of less than 7.0% (HCC),Type 2 diabetes mellitus with stage 3a chronic kidney disease, with long-term current use of insulin (HCC) Inject 36 Units under the skin in the morning. 18 mL 3 06/20/20 24 Active Metoprolol Tartrate 50 MG Oral Tablet (Lopressor)Indicat ions:HTN, goal below 130/80 TAKE 1 TABLET BY MOUTH IN THE MORNING AND BEFORE BEDTIME 180 Tablet 3 06/22/20 24 Active Klor-Con M20 20 MEQ Oral Tablet Extended Release (Potassium Chloride ER) TAKE 1 TABLET BY MOUTH EVERY DAY IN THE MORNING 90 Tablet 3 07/28/20 24 Active Magnesium Oxide -Mg Supplement 400 (240 Mg) MG Oral Tablet (Mag-Ox)Indication s:HTN, goal below 130/80,Chronic heart failure with preserved ejection fraction (HCC),Palpitations ,Hypomagnesemia One tablet by mouth daily in the morning 90 Tablet 3 06/25/20 24 Active Dificid 200 MG Oral Tablet (Fidaxomicin)Indic ations:Chronic diarrhea Take 1 Tablet by mouth in the morning and 1 Tablet before bedtime. 60 Tablet 08/12/20 24 Active Klayesta 168882 UNIT/GM External Powder (Nystatin)Indicati ons:Candidal intertrigo APPLY TOPICALLY TO AFFECTED AREA 3 TIMES A DAY 60 g 1 08/19/20 24 Active NovoLOG FlexPen 100 UNIT/ML Subcutaneous Solution Pen-injector (insulin aspart)Indications :Type 2 diabetes mellitus with hemoglobin A1c goal of less than 7.0% ([facility]) INJECTED UNDER THE SKIN BEFORE MEALS, 3 TIMES PER DAY: 2 UNITS PER 50 WHEN GLUCOSE IS OVER 200 UNITS. TDD: 50. ICD10: E11.9. 45 mL 1 08/20/20 24 Active Atorvastatin Calcium 40 MG Oral Tablet (Lipitor)Indicatio ns:Heart failure, systolic, due to idiopathic cardiomyopathy (HCC),S/P aortic valve replacement,HTN, goal below 140/80,Dyslipidemi a, goal LDL below 70 Take 1 tablet by mouth daily to prevent heart attack/stroke, protect kidney, and cholesterol 90 Tablet 09/18/20 24 Active Clopidogrel Bisulfate 75 MG Oral Tablet (pLAVix) Take 1 Tablet by mouth in the morning. 90 Tablet 1 09/18/20 24 Active Butalbital-Aspirin -Caffeine 50-325-40 MG Oral Capsule (Fiorinal)Indicati ons:Acute intractable tension-type headache Take 1 Capsule by mouth every 4 hours as needed for Headache. 30 Capsule 09/18/20 24 Active Levothyroxine Sodium 75 MCG Oral Tablet (Levoxyl)Indicatio ns:Hypothyroidism TAKE 1 TAB BY MOUTH EVERY MORNING ON AN EMPTY STOMACH AT LEAST 30 MINS BEFORE BREAKFAST/OTHER MEDS 90 Tablet 1 09/23/20 24 Active Omnipod 5 [id number] Pods Gen 5Indications:Type 2 diabetes mellitus with hemoglobin A1c goal of less than 8.0% ([facility]) Use as directed. Change every 3 days as directed. DX: E11.9 30 Each 3 09/25/19 25 Active documented as of this encounter (statuses as of 09/29/2024) Active Problems Problem Noted Date Diagnosed Date Atrial fibrillation 06/05/2024 Polyneuropathy associated with underlying diseas e 06/05/2024 Hypertensive kidney disease with stage 3a chronic kidney disease 11/05/2023 Assessment & Plan (01/23/2024 1:13 PM EDT): BP stable today Continue toprol Thrombocytopenia 09/12/2023 Obesity, Class I, BMI 30.0-34.9 (see actual BMI) 07/31/2023 Type 2 diabetes mellitus wit h diabetic peripheral angiopathy without gangrene 03/01/2023 Type 2 diabetes mellitus wit h hemoglobin A1c goal of less than 8.0% 02/22/2023 Assessment & Plan (01/27/2024 8:41 PM EDT): "RED FLAG" Diabetic symptoms: Vision Changes and [...] with long-term current use of insulin 08/29/2022 Assessment & Plan (03/16/2023 4:07 PM EDT): Current Status: Actively exacerbating Degree of Condition [...] eye 09/28/2020 Coronary artery disease invo [place] coronary artery of [place] heart without angina pectoris 12/16/2019 Assessment & Plan (03/16/2023 4:00 PM EDT): No angina reported -continue atorvastatin 40 mg daily, plavix 75 mg daily, Toprol tartrate 100 mg QAM 50 mg QHS Assessment & Plan (06/07/2022 10:10 AM EDT): No angina reported -continue atorvastatin 40 mg daily, plavix 75 mg daily, Toprol tartrate 100 mg QAM 50 mg QHS Assessment & Plan (04/27/2022 9:53 AM EDT): --asa 81mg daily --metoprolol 100mg BID --atorvastatin 40mg daily Medical marijuana use 12/09/2019 Schizoaffective disorder, bipolar type 9 Assessment & Plan (03/16/2023 4:09 PM EDT): Stable -continue vraylar 3 mg daily, buspar 15 mg BID, lyrica 75 mg BID, trazadone 100 mg HS Assessment & Plan (06/07/2022 10:14 AM EDT): Stable -continue vraylar 3 mg daily, buspar 15 mg BID, lyrica 75 mg BID, trazadone 100 mg HS Assessment & Plan (04/27/2022 9:55 AM EDT): Stable --vraylar 3mg daily S/P drug eluting coronary stent placement 2018 Cervical disc disorder with radiculopathy 2018 Hoarding disorder 09/20/2018 Social anxiety disorder 09/20/2018 H/O bilateral mastectomy 06/28/2018 LEYVA (nonalcoholic steatohepatitis) 06/28/2018 Assessment & Plan (04/27/2022 10:06 AM EDT): Most recent liver studies normal. HTN, goal below 130/80 05/29/2018 Assessment & Plan (03/16/2023 4:01 PM EDT): BP stable -continue regimen as noted below. S/P TAVR (transcatheter aortic valve replacement ) 11/06/2017 Overview (03/16/2023): Bovine valve Persistent insomnia 09/04/2017 Benign paroxysmal positional vertigo due to bilateral vestibular disorder 02/01/2017 History of colon cancer 10/01/2014 History of breast cancer 10/01/2014 Acquired hypothyroidism 02/19/2014 Assessment & Plan (03/16/2023 4:04 PM EDT): Continue Synthroid DANYELLE on CPAP 10/31/2010 Dyslipidemia 11/14/2007 Overview (09/09/2009): Per Lipid Taxonomy. documented as of this encounter (statuses as of 09/29/2024) Resolved Problems Problem Noted Date Diagnosed Date Resolved Date Dehydration 06/05/2024 07/29/2024 Confusion 06/05/2024 07/29/2024 Vomiting and diarrhea 06/05/20242023 Recurrent Clostridium difficile diarrhea 01/23/2024 07/29/2024 Assessment & Plan (01/23/2024 1:12 PM EDT): Finish dificid as ordered Probiotics ordered, but patient has not started, recommended starting today Good hand hygiene, sanitize bathroom Widened pulse pressure 06/19/2023 11/07 /2023 COVID-19 virus infection 06/19/202303/2023 Hyperglycemia due to diabetes mellitus 06/15/2023 07/31/2023 Splenic infarct 06/14/2023 02/04/2024 C. difficile colitis 06/14/2023 024 Pleural effusion 06/14/2023 07/31/2023 Hypokalemia 06/14/2023 07/31/2023 Hypophosphatemia 06/14/2023 07/31/2023 Hyponatremia 06/14/2023 07/31/2023 Encephalopathy acute 06/13/2023 023 Hypocalcemia 06/13/2023 07/31/2023 Schizoaffective disorder 06/13/202303/2023 Hypothyroidism 06/13/2023 07/31/2023 Pneumoperitoneum 06/06/2023 07/31/2023 Liver cirrhosis secondary to nonalcoholic steatohepatitis (LEYVA) 03/16/2023 04/18/2023 Assessment & Plan (03/16/2023 4:04 PM EDT): Compliant with lactulose Mood disorder 03/01/2023 02/04/2024 Assessment & Plan (01/23/2024 1:19 PM EDT): Stable today Following with psych continue trazodone, recently added cymbalta No longer on lyrica or buspar Disease of pancreas, unspecified 03/01/2023 04/18/2023 BMI 40.0-44.9, adult 03/01/2023 023 Type 2 diabetes mellitus wit h diabetic cataract, with long-term current use of insulin 02/22/2023 04/18/2023 Morbid obesity 02/22/2023 07/31/2023 Atherosclerosis of aorta 04/26/2022 Assessment & Plan (04/27/2022 9:46 AM EDT): BP at goal. --asa 81mg daily --atorvastatin 40mg daily Hypertensive heart and kidne y disease with chronic diastolic congestive heart failure and stage 3a chronic kidney disease 03/09/202203/25 Assessment & Plan (03/16/2023 4:03 PM EDT): Current Status: "Stable" for patient / At [...] Other/Additional Comments: Taken additional dose of metolazone Assessment & Plan (06/07/2022 10:13 AM EDT): Doing DTP now with good results. Last EF 05/14 65%. Last GFR 06/14 50.6 After DTP, resume torsemide 20 mg daily, valsartan 20 mg daily, spironolactone 25 mg daily Assessment & Plan (04/27/2022 9:40 AM EDT): Euvolemic Checks wt daily BP at goal --metoprolol 100mg BID --spironolactone 25mg daily --torsemide 20mg daily --valsartan 20mg daily Type 2 diabetes mellitus wit h stage 3a chronic kidney disease, without long-term current use of insulin 03/09/2022 03/12/2022 Type 2 diabetes mellitus with cataract 03/09/2022 09/08/2022 Acute cystitis without hematuria 04/13/2021 09/08/2022 Assessment & Plan (06/07/2022 10:16 AM EDT): Klebsiella growing from 06/15 -finish omnicef Subconjunctival [...] long-term current use of insulin 08/23/2018 04/18/2023 Assessment & Plan (06/07/2022 10:08 AM EDT): Last hgba1c 8.2 04/14. Having frequent lows at night -reinforced only use insulin 70 u HS if eating a full Evening meal NOT 100 u -continue metformin 850 mg BID, ozempic weekly -MTM appointment scheduled Nocturnal hypoxemia 12/28/2017 06/28/20 18 Recurrent major depressive d isorder, in full remission 12/05/2017 2020 ANIVAL (generalized anxiety disorder) 12/05/2017 04/18/2023 Assessment & Plan (03/16/2023 4:07 PM EDT): Stable -continue trazodone at night as needed [...] 35.0 to 39.9 with serious comorbidity 09/04/2014 Overview (07/10/2018): ICD-10 update of inactive diagnosis Pure hyperglyceridemia 06/22/201412/21 DM type 2, goal: symptom mgmt 02/19/2014 12/21/2016 Diabetes mellitus 01/05/2014 12/21/2016 LEYVA RESEARCH OTHER*[id number] 01/05/2014 12/21/2016 Axillary pain 11/03/2013 12/21/2016 Obesity, [...] 12/21/2016 FOLLOWING SURGERY, UNSPECIFI ED ([facility]SO 08/25/2011) 08/26/2011 12/21/2016 ADVANCE DIRECTIVE INFORMATION 04/17/2011 12/21/2016 Overview (01/21/2010): Yes, Patient instructed to provide copy of advance directive for provider to review and to be scanned into Electronic Medical Record ADVANCE DIRECTIVE INFORMATION 03/01/2011 12/21/2016 Overview (03/01/2011): Yes, Patient instructed to provide copy of advance directive for provider to review and to be scanned into Electronic Medical Record [facility] V710 Clinical Trial*[id number] 12/22/2010 04/14/2011 S/P aortic valve replacement 12/01/2010 08/26/2011 S/P AORTIC VALVE REPLACEMENT - #25 pericardial Mc valve 11/01/2010 06/28/2018 Overview (11/02/2010): Aortic valve replacement with #25 pericardial Mc valve, model [id number], serial number [id number] (Dr. Walker) [facility] V710 Clinical Trial*[id number] 10/18/2010 11/21/2010 Type 2 diabetes mellitus wit h hemoglobin A1c goal of less than 7.0% 09/02/2010 02/04/2024 Overview (01/18/2016): ICD-10 update of inactive term Assessment & Plan (04/27/2022 9:44 AM EDT): Pt having lows almost every night. Followed [...] (BMI) of 40.0-44.9 in adult 08/29/2010 04/16/2012 Overview (01/04/2016): ICD-10 update of inactive term Medical home patient encounter 07/11/2010 04/18/2023 Inflammatory disorder of breast 07/11/2010 12/21/2016 Other hammer toe (acquired) 06/10/2010 12/21/2016 Plantar fibromatosis 06/10/2010 017 Obesity, morbid (more than 1 00 lbs over ideal weight or BMI > 40) 03/08/2010 03/05/2014 Overview (12/13/2015): Per Obesity Protocol, #19 ICD-10 update of inactive term HTN, GOAL BELOW 130/80 10/21/200905/16 Overview (10/21/2009): Per HTN Taxonomy. Dyslipidemia, goal LDL below 70 09/09/2009 11/09/2021 Overview (09/09/2009): Per Lipid Taxonomy. Type 2 diabetes mellitus wit h hemoglobin A1c goal of less than 7.0% 07/22/2009 09/02/2010 Overview (01/18/2016): Per Diabetes Taxonomy. ICD-10 update of inactive term Hypertensive heart failure, severity unknown 9 07/23/2013 Major depressive disorder 02/24/2009 Overview (07/17/2017): ICD-10 update of inactive term Intestinal infection due to intestinal E. coli infection 04/09/2008 12/21/2016 Encounter for antineoplastic chemotherapy 03/05/2008 12/21/2016 Drug-induced neutropenia 03/05/2008 Anemia in neoplastic disease 03/05/2008 12/21/2016 MAL JOSE BREAST UP-OUTER - pT 2 pN2 M0, stage IIIa 02/13/2008 07/26/2017 Overview (07/19/2010): pT2 pN2 M0, stage IIIa, intermediate grade, infiltrating ductal carcinoma of right breast associated with ductal carcinoma in situ, triple negative Type 2 diabetes mellitus wit h hemoglobin A1c goal of less than 7.0% 01/02/2008 07/22/2009 Overview (01/18/2016): Per Diabetes Taxonomy. ICD-10 update of inactive term HTN, goal below 140/90 11/14/200710/21 Overview (10/21/2009): Per HTN Taxonomy. DM type 2, not at goal 11/14/200703/04 Malignant neoplasm of colon 11/14/2007 12/21/2016 Aortic valve stenosis, severe 12/05/2017 documented as of this encounter (statuses as of 09/29/2024) Immunizations Name Administration Dates Next Due COVID-19 mRNA, LNP-s, No Pre serve, 2-Dose Series (Moderna) 10/25/2021,02/16/2021,01/18/2021 HEP A - Hepatitis A (Adult > 18 yrs) 06/07/2018, 12/05/2017 Hepatitis B, 20+ yrs 06/07/2018,01/08/20 18,12/05/2017,06/15,10/27/2013,09/12/2013 PPD 10/26/2019,10/17/2019 Pneumococcal Conjugate Vacci ne, 20-valent ([id number]) 06/22/2023 Pneumococcal Polysaccharide PPV23 (Pneumovax) 01/02/2008 Seasonal Influenza Vac., MDV , IM, 0.5 mL (Fluzone) 11/26/2016,06/15/2014,09/12/2013,09/30,07/17/2011,08/17/2010,09/21/2009 ,07/18/2008 Seasonal Influenza, High Dos e, Trivalent, PF, IM (Fluzone HD) 06/23/2024 Seasonal Influenza, PF, 6 M & above, IM , (FluLaval or Fluzone) 06/22/2023,05/25/2021,07/14/2020 Seasonal Influenza, QUAD, wi th Preserv, 6 mons & Above, 0.5 mL, IM 05/02/2018 Seasonal Influenza, Quadriva lent Hd (Fluzone Hd) 06/29/2022 Seasonal Influenza, Quadriva lent, No Preserve, IM 05/28/2019,05/02/2018,06/24/2017 TDAP (age 10 and older)(Boostrix) 06/28/2018 TDAP, [...] you have received? 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 Answer Date of Assessment Author No 11/06/2017 4:30 PM Gisela Greer RN * Are you blind or do you have serious difficulty seeing, even when wearing glasses? Answer Date of Assessment Author Yes 11/06/2017 4:30 PM Gisela Greer RN * Do you have serious difficulty walking or climbing stairs? (5 years old or older) Answer Date of Assessment Author No 11/06/2017 4:30 PM Gisela Greer RN * Do you have difficulty dressing or bathing? (5 years old or older) Answer Date of Assessment Author No 11/06/2017 4:30 PM Gisela Greer RN * Because of a physical, mental, or emotional condition, do you have difficulty doing errands alone such as visiting a doctors office or shopping? (15 years old or older) Answer Date of Assessment Author No 11/06/2017 4:30 PM Gisela Greer RN documented as of this encounter Mental Status * Because of a physical, mental, or emotional condition, do you have serious difficulty concentrating, remembering, or making decisions? (5 years old or older) Answer Entry Date Author No 11/06/2017 4:30 PM Giseal Greer RN documented in this encounter Miscellaneous Notes * Telephone Encounter - Neeraj Matthew RPh - 09/29/2024 7:39 AM EST Omnipod G6/G7 pods and Dexcom G6 order sent through [employer]. Neeraj Romero RPh, [facility] Clinical Pharmacist Medication Therapy Management Clinic 09/29/2024, 7:42 AM * Telephone Encounter - Kori Lucas RPh - 09/26/2024 12:57 PM EST This does need to be processed through DME supplier. However, [facility] pharmacists are only able to process CGM supplies via [employer]. Forwarding request to nurse fournier for assistance. Please advise. Thank you, Kori Lucas, PharmD Clinical Pharmacist Centralized Clinical Pharmacy Services ([facility]) 09/26/24 12:58 PM [phone] * Telephone Encounter - Zoya Sorensen CPhT - 09/26/2024 12:13 PM EST Pt has GG does this need to be submitted to [facility]? This is a new [place] request. Upon review of this prior authorization request, I verified this request is appropriate. This is prescribed by a department for which [facility] is authorized to review prior authorizations This is not a duplicate encounter regarding the same prior authorization The patient is planning to use insurance The insurance information listed in previous note is correct and the plan that is requiring prior authorization The insurance does not cover either brand or generic forms of this script as written without prior authorization The insurance does not cover any NDCs of this script without prior authorization RX Estimate tool is unable to determine coverage of requested script Of note, there is nothing currently pending in [facility] for this request. Please advise how to proceed. Thank you, Zoya Sorensen Conversion Worker Centralized Clinical Pharmacy Services 09/26/2024,12:13 PM * Telephone Encounter - Pinky Avelar PHARM Tech - 09/25/2024 5:09 PM EST Pharmacy calling to inform doctor that the patient's insurance will not pay for this medication without a completed prior authorization. Did not confirm this information with the pharmacy. Pt's current insurance information is as follows: Patient name: Jovita Rose ID number: [id number] BIN number: [id number] PCN number: [id number] Group number: [id number] Subscriber name: Jovita Rose Primary or Secondary Insurance:Primary Medication: Omnipod 5 [id number] Pods Gen 5 Reason for Request: required per pharmacy via [facility] Pharmacy and phone number: [id number] [address] [facility] Rx plan and phone number: [email or web address] What alternative medications does the pharmacy have in stock?: n/a Thank you for your assistance Pinky Avelar Treadle Cut Off Saw Operator II Centralized Clinical Pharmacy Services ([facility]) 09/25/2024,5:09 PM * Telephone Encounter - Neeraj Matthew RPh - 09/25/2024 2:29 PM EST Patient Phone Numbers Caller's name: Jovita Preferred call back number(OFFICE NUMBER FOR HH): [phone] Reason for call: Patient calling asking for the Omnipod 5 Order to be sent to [facility]. Left message for Jovita explaining her Omnipod pods will more than likely need to come from a diabetes supply [facility]. She needs to call the clinic back to discuss. If I don not hear back from her I will send RX at to [facility]. Neeraj Romero RPh, [facility] Clinical Pharmacist Medication Therapy Management Clinic 09/25/2024, 2:31 PM * Telephone Encounter - Kori Alvarado CPhT - 09/25/2024 1:44 PM EST Caller's name: Jovita Preferred call back number(OFFICE NUMBER FOR HH): [phone] Reason for call: Patient calling asking for the Omnipod 5 Order to be sent to [facility]. Thank you, Kori Alvarado CPhT Conversion Worker II Central[facility] Clinical Pharmacy Services ([facility]) 09/25/2024,1:44 PM documented in this encounter Plan of Treatment Upcoming Encounters Date Type Department Care Team (Late st Contact Info) Description 09/30/2024 11:10 AM EST Office Visit Pharm[facility], [facility] [place] [address] [place] [address] Pharmacist1, [facility] [address] COUNT INCLUDES [facility] [place] [address] 10/23/2024 9:30 AM EST Scheduled Telephone [facility], [facility] [address] [place] [address] Lakesha King, RDN [address] [place] [address] 11/03/2024 11:00 AM EST Office Visit [facility] [address] [place] [address] Christina Birch, [address] [place] [address] 11/04/2024 9:30 AM EST Office Visit Gastroenterology, [facility] [address] [facility] [place] [address] Tia Taylor CRNP [address] [place] [address] 01/26/2025 11:40 AM EDT Office Visit Nephrology, [facility] [address] [facility] [place] [address] Fidelina Baumann MD [address] [facility] [place] [address] Scheduled Procedures Name Priority Associated Diagnoses Date/Ti me COLONOSCOPY FLEXIBLE PROXIMAL DIAGNOSTIC Recall History of colon polyps ESOPHAGOGASTRODUODENOSCOPY ( EGD), FLEXIBLE, TRANSORAL, DIAGNOSTIC Recall Cirrhosis (HCC) COLONOSCOPY FLEXIBLE PROXIMAL DIAGNOSTIC Recall Personal history of colonic polyps Health Maintenance Due Date Last Done Comments HIV Screening 1973 Cologuard 12/18/2003 Fecal Occult Blood Test 12/18/2003 DXA Scan 12/18/2023 01/12/2009 COVID-19 Vaccine ( season) 2024 10/25/2021, 02/16/2021, 01/18/2021 CKD PHOS USE SMARTSET 32086 06/18/202405/26, 06/16/2023, 06/15/2023, Additional history exists HbA1c 08/01/2024 01/30/2024, 08/25, 07/31/2023, Additional history exists Diabetic Eye Exam 09/13/2024 09/13/2023, , 09/13/2023, Additional history exists B-12 09/18/2024 09/18/2023, 08/24, 2020, Additional history exists GFR 11/01/2024 05/01/2024, 12/23, 10/15/2023, Additional history exists Albumin/Creatinine Ratio 01/07/2025 024, 03/09/2023, 12/22/2022, Additional history exists CKD HGB USE SMARTSET 63987 01/07/202501/07, 01/08/2024, 10/15/2023, Additional history exists TSH 01/07/2025 01/08/2024, 09/25, 06/06/2023, Additional history exists Diabetic Foot Exam 07/29/2025 07/29/2024, 0 2020, 12/05/2018, Additional history exists Sigmoidoscopy 06/08/2028 06/08/2023 DTap/Tdap Vaccines (3 - Td or Tdap) 06/28/2028 06/28/2018, 06/09/2008 Colonoscopy 07/16/2029 07/16/2024, 06/25, 06/27/2023, Additional history exists Colorectal Cancer Screening 07/16/2029 Hepatitis C Screening Completed 03/29/2017 Hepatitis B Vaccine Completed 06/07/2018, 01/07/2018, 12/05/2017, Additional history exists Zoster Vaccines Completed 11/29/2019, 10/25, 08/22/2019, Additional history exists Pneumococcal Vaccine: 50+ Years Completed 06/22/2023, 01/02/2008 Influenza Vaccine (FLU shot) Completed , 06/22/2023, 06/29/2022, Additional history exists HPV (Gardasil) Vaccine Aged Out No lo nger eligible based on patient's age to complete this topic MENINGOCOCCAL (MENACTRA/MENVEO) Aged Out No longer eligible based on patient's age to complete this topic documented as of this encounter Medical Devices Implanted Type Area Senior Manager Device Identifier Shelf Expiration Date Model / Serial / Lot Cath Roselia Single Lumen - [id number] Implanted:Qty : 1 on 03/12/2008 at OR [facility] Left: Chest [facility] *DO NOT USE* 07/25/2012 21-4053-24 / / [id number] Sut Steel 6 M654g - [id number] Implanted:Qty : 1 on 11/01/2010 at OR [facility] N/A: Chest DO NOT USE M654G / / Sut Steel 6 M654g - [id number] Implanted:Qty : 1 on 11/01/2010 at OR [facility] N/A: Chest DO NOT USE M654G / / Valve Tarsha Aortic [id number] - [id number] Implanted:Qty : 1 on 11/01/2010 at OR [facility] N/A: Heart [employer] DANIEL 05/20/2012 [id number]-[id number] / / [id number] Description:[email or web address] Mesh Soft 39q09me - [id number] Implanted:Qty : 1 on 10/10/2019 [place]igi Hendrickson [place] [facility] [place] Abdomen CR BARD : DAVOL [id number] 05/21/2024 [id number] / / [id number] Lens 22.5 Sn60wf - [id number] - [id number] Implanted:Qty : 1 on 09/15/2020 by Cece Roland MD at [facility] Right: Eye IVA : SURGICAL [id number] 05/13/2025 SN60 WF.225 / [id number] / [id number] Lens 21.5 Sn60wf - [id number] - [id number] Implanted:Qty : 1 on 12/19/2023 by Ramsey Burnett DO at OR [facility] Left: Eye IVA : SURGICAL 12/03/2024 SN60WF.2 15 / [id number] / documented as of this encounter Visit Diagnoses Diagnosis Dysuria- Primary Atherosclerosis of aorta (HCC) Atherosclerosis of aorta Type 2 diabetes mellitus with hemoglobin A1c goal of less than 7.0% (HCC) DANYELLE on CPAP Obstructive sleep apnea (adult) (pediatric) 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 coronary artery of [place] heart without angina pectoris Schizoaffective disorder, bipolar type (HCC) Schizoaffective disorder, unspecified condition LEYVA (nonalcoholic steatohepatitis) Other chronic nonalcoholic liver disease Type 2 diabetes mellitus with diabetic mononeuropathy, with long-term current use of insulin (HCC)- Primary Atherosclerosis of [place] coronary artery of 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 coronary artery of 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) S/P TAVR (transcatheter aortic valve replacement) Heart valve replaced by other means Acquired hypothyroidism Unspecified hypothyroidism ANIVAL (generalized anxiety disorder) Generalized anxiety disorder Schizoaffective disorder, bipolar type (HCC) Schizoaffective disorder, unspecified condition Recurrent Clostridium difficile diarrhea- Primary Intestinal infection [...] Mood disorder (HCC) Unspecified episodic mood disorder Type 2 diabetes mellitus with hemoglobin A1c goal of less than 8.0% (HCC)- Primary documented in this encounter Advance [...] statute hierarchy) Jovita Ovalle Adult Child Health Svp Chief Marketing Officer resentative (appointed verbally by patient or by statute hierarchy) [email or web address] Care Teams Registrar [employer] Relationship Specialty Start Date End Date Gregory Rausch MD [address] [address] PCP - General Family Medicine 02/12/20 documented as of this encounter
--- OUTSIDE RECORDS SUMMARY | 2024-10-02 03:18 | External Medical Summary | Summary of Care ---
Author Name Unknown Organization [facility] Address [address] [place] [address] Phone [phone] Care Team Providers Care Grain I Farmworker Name Role Phone Gregory Rausch MD Primary Care Provider [phone] Reason for Visit * Reason Onset Date Comments Information 09/25/2024 Medication Pre-auth 09/25/2024 Omnipod 5 De [id number] Pods Gen 5 - received FIMS message that pa was started in cover my meds HYATT [id number] Encounter Details Date Type Department Care Team (Late st Contact Info) Description 09/25/2024 Telephone Centralized Clinical Pharmacy Services, Cindy Da Silva [address] [place] [address] [place] [address] Pharmacist1, [facility] [address] [facility] [id number] Information; Medication Pre-auth (Omnipod ... Allergies Active [...] ns:DM type 2, not at goal ([facility]) 3 every 15 minutes until glucose [...] A1c goal of less than 7.0% ([facility]) Use up to 50 units per [...] bedtime. 60 Tablet 08/12/20 24 Active Klayesta 432654 UNIT/GM External Powder (Nystatin)Indicati ons:Candidal intertrigo APPLY TOPICALLY TO AFFECTED AREA 3 TIMES A DAY 60 g 1 08/19/20 24 Active NovoLOG FlexPen 100 UNIT/ML Subcutaneous Solution Pen-injector (insulin aspart)Indications :Type 2 diabetes mellitus with hemoglobin A1c goal of less than 7.0% ([facility]) INJECTED UNDER THE SKIN BEFORE MEALS, 3 [...] Tablet 1 09/23/20 24 Active Omnipod 5 EyyV4G3 Pods Gen 5Indications:Type 2 diabetes mellitus with hemoglobin A1c goal of less than 8.0% ([facility]) Use as directed. Change every 3 days [...] eye 09/28/2020 Coronary artery disease invo lving [place] coronary artery of [place] heart without angina pectoris 12/16/2019 Assessment & [...] 12/21/2016 Diabetes mellitus 01/05/2014 12/21/2016 LEYVA RESEARCH OTHER*[id number] 01/05/2014 12/21/2016 Axillary pain 11/03/2013 12/21/2016 Obesity, [...] cath 09/201008/26/2011 12/21/2016 FOLLOWING SURGERY, UNSPECIFI ED ([facility] 08/25/2011) 08/26/2011 12/21/2016 ADVANCE DIRECTIVE INFORMATION 04/17/2011 12/21/2016 Overview (01/21/2010): Yes, Patient instructed to provide copy of advance directive for provider to review and to be scanned into Electronic Medical Record ADVANCE DIRECTIVE INFORMATION 03/01/2011 12/21/2016 Overview (03/01/2011): Yes, Patient instructed to provide copy of advance directive for provider to review and to be scanned into Electronic Medical Record [facility] V710 Clinical Trial*[id number] 12/22/2010 04/14/2011 S/P aortic valve replacement 12/01/2010 08/26/2011 S/P AORTIC VALVE REPLACEMENT - #25 pericardial Mc valve 11/01/2010 06/28/2018 Overview (11/02/2010): Aortic valve replacement with #25 pericardial Mc valve, model 2800TFX, serial number [id number] (Dr. 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 Neeraj Romero RPh, [facility] [place] 2[place] Clinical Pharmacist [facility] 09/29/2024, 7:42 AM * Telephone Encounter - Kori Lucas RPh - 09/26/2024 12:57 PM EST This does need to be processed through DME supplier. However, [facility] pharmacists are only able to process CGM supplies via [employer]. Forwarding request to nurse fournier for assistance. Please advise. Thank you, Kori Lucas, PharmD Clinical Pharmacist Central[facility] Clinical Pharmacy Services ([facility]) 09/26/24 12:58 PM [phone] * Telephone Encounter - Zoya Sorensen CPhT - 09/26/2024 12:13 PM EST Pt has GG does this need to be submitted to [facility]? This is a new PA request. Upon review of this prior authorization request, I verified this request is appropriate. This is prescribed by a department for which [facility] is authorized to review prior authorizations This [...] note, there is nothing currently pending in [facility] for this request. Please advise how to proceed. Thank you, Zoya Sorensen Locomotive Crane Operator Helper Centralized Clinical Pharmacy Services 09/26/2024,12:13 PM * Telephone Encounter - Pinky Avelar PHARM Tech - 09/25/2024 5:09 PM EST Pharmacy calling to inform doctor that the patient's insurance will not pay for this medication without a completed prior authorization. Did not confirm this information with the pharmacy. Pt's current insurance information is as follows: Patient name: Jovita Rose ID number: [id number] BIN number: [id number] PCN number: [id number] Group number: [id number] Subscriber name: Jovita Rose Primary or Secondary Insurance:Primary Medication: Omnipod 5 [id number] Pods Gen 5 Reason for Request: required per pharmacy via [facility] Pharmacy and phone number: [id number] [address] [facility] Rx plan and phone number: [employer] jimenez What alternative medications does the pharmacy have in stock?: n/a Thank you for your assistance Pinky Avelar C++ Quant Developer II [facility] Pharmacy Services ([facility]) 09/25/2024,5:09 PM * Telephone Encounter - Neeraj Matthew RPh - 09/25/2024 2:29 PM EST Patient Phone Numbers Caller's name: Jovita Preferred call back number(OFFICE NUMBER FOR HH): [phone] Reason for call: Patient calling asking for the Omnipod 5 Order to be sent to [facility]. Left message for Jovita explaining her Omnipod pods will more than likely need to come from a diabetes supply [employer]. She needs to call the clinic back to discuss. If I don not hear back from her I will send RX at to [facility]. Neeraj Romero RPh, [facility] [place]NOTE 2] Clinical Pharmacist Medication Therapy Management Clinic 09/25/2024, 2:31 PM * Telephone Encounter - Kori Alvarado CPhT - 09/25/2024 1:44 PM EST Caller's name: Jovita Preferred call back number(OFFICE NUMBER FOR HH): [phone] Reason for call: Patient calling asking for the Omnipod 5 Order to be sent to [facility]. Thank you, Kori Alvarado CPhT Locomotive Crane Operator Helper II Central[facility] Clinical Pharmacy Services ([facility]) 09/25/2024,1:44 PM documented in this encounter Plan of Treatment Upcoming Encounters Date Type Department Care Team (Late st Contact Info) Description 09/30/2024 11:10 AM EST [facility] [place] [address] [place] [address] Pharmacist1, [facility] [address] [facility] [place] [address] 10/23/2024 9:30 AM EST Scheduled Telephone [facility], [facility] [address] [place] [address] Lakesha King, RDN [address] [place] [address] 11/03/2024 11:00 AM EST Office Visit [facility] [address] [place] [address] Christina Birch, [address] [place] [address] 11/04/2024 9:30 AM EST Office Visit Gastroenterology, [facility] [address] [facility] [place] [address] Tia Taylor CRNP [address] [place] [address] 01/26/2025 11:40 AM EDT Office Visit Nephrology, [facility] [address] [facility] [place] [address] Fidelina Baumann MD [address] [facility] [place] [address] Scheduled Procedures Name Priority Associated Diagnoses Date/Ti [...] 10/25/2021, 02/16/2021, 01/18/2021 CKD PHOS USE SMARTSET 57898 06/18/202405/26, 06/16/2023, 06/15/2023, Additional history exists HbA1c 08/01/2024 01/30/2024, 08/25, 07/31/2023, Additional history exists Diabetic Eye Exam 09/13/2024 09/13/2023, , 09/13/2023, Additional history exists B-12 09/18/2024 09/18/2023, 08/24, 2020, Additional history exists GFR 11/01/2024 05/01/2024, 12/23, 10/15/2023, Additional history exists Albumin/Creatinine Ratio 01/07/2025 024, 03/09/2023, 12/22/2022, Additional history exists CKD HGB USE SMARTSET 74218 01/07/202501/07, 01/08/2024, 10/15/2023, Additional history exists TSH [...] encounter Medical Devices Implanted Type Area Chief Lock Operator Device Identifier Shelf Expiration Date Model / Serial / Lot Cath Roselia Single Lumen - [id number] Implanted:Qty : 1 on 03/12/2008 at OR [facility] Left: Chest [facility] *DO NOT USE* 07/25/2012 21-4053-24 / / [id number] Sut Steel 6 M654g - [id number] Implanted:Qty : 1 on 11/01/2010 at OR [facility] N/A: Chest DO NOT USE M654G / / Sut Steel 6 M654g - [id number] Implanted:Qty : 1 on 11/01/2010 at OR [facility] N/A: Chest DO NOT USE M654G / / Valve Tarsha Aortic [id number] - [id number] Implanted:Qty : 1 on 11/01/2010 at OR [facility] N/A: Heart [employer] 05/20/2012 2800TFX-25 / / [id number] Description:[email or web address] Mesh Soft 68f92vo - [id number] Implanted:Qty : 1 on 10/10/2019 by Gigi Hendrickson MD at [place] [facility] [place] N/A: Abdomen CR BARD : DAVOL [id number] 05/21/2024 [id number] / / [id number] Lens 22.5 Sn60wf - [id number] - [id number] Implanted:Qty : 1 on 09/15/2020 by Cece Roland MD at [facility] Right: Eye IVA : SURGICAL [id number] 05/13/2025 SN60 WF.225 / [id number] / [id number] Lens 21.5 Sn60wf - [id number] - [id number] Implanted:Qty : 1 on 12/19/2023 by Ramsey Burnett DO at OR [facility] Left: Eye IVA : SURGICAL 12/03/2024 SN60WF.2 15 / [id number] / documented as of this encounter [...] valve replaced by other means Atherosclerosis of [place] coronary artery of [place] heart without angina pectoris Schizoaffective disorder, bipolar type (HCC) Schizoaffective disorder, unspecified condition LEYVA (nonalcoholic steatohepatitis) Other chronic nonalcoholic liver disease Type 2 diabetes mellitus with diabetic mononeuropathy, with long-term current use of insulin (HCC)- Primary Atherosclerosis of [place] coronary artery of [place] heart without angina pectoris Hypertensive heart and [...] of insulin (HCC) Coronary artery disease involving [place] coronary artery of [place] heart without angina pectoris HTN, goal below [...] statute hierarchy) Jovita Ovalle Adult Child Health Sales And Marketing Director resentative (appointed verbally by patient or by statute hierarchy) [email or web address] Care Teams Grain I Farmworker Relationship Specialty Start Date End Date Gregory Rausch MD [address] [address] PCP - General Family Medicine 02/12/20 documented as of this encounter
--- OUTSIDE RECORDS SUMMARY | 2024-10-02 03:18 | External Medical Summary | Summary of Care ---
Author Name Unknown Organization [facility] Address [address] [place] [address] Phone [phone] Care Team Providers Care Corporate Manager Name Role Phone Gregory Rausch MD Primary Care Provider [phone] Encounter Details Date Type Department Care Team (Late st Contact Info) Description 09/25/2024 Population Health External Data Unspecified Department Allergies Active Allergy Reactions Criticality Noted Date Comments Adhesive Tape 07/02/2017 Can tolerate band-aids Glycerin Other (Please comment) 03/12/2008 Topical agents with glycein-burning & itching Lactose 12/09/2014 Dairy - gas Lisinopril Cough 01/21/2010 Monosodium Glutamate Edema Other 03/12/2008 Hands and feet Penicillins Rash 11/14/2007 documented as of this encounter (statuses as of 09/30/2024) Medications aspirin enteric coated 81 MG TBECIndications:Ao rtic valve disorder Take 1 Tab by mouth daily. 90 Tab 11 09/30/19 19 Active AZO Cranberry 250-30 MG Oral Tablet Take 1 Tablet by mouth in the morning and 1 Tablet before bedtime. Active BD Glucose 5 GM Oral Tablet Chewable (Glucose)Indicatio ns:DM type 2, not at goal ([facility] [...] bedtime. 60 Tablet 08/12/20 24 Active Klayesta 200825 UNIT/GM External Powder (Nystatin)Indicati ons:Candidal intertrigo APPLY TOPICALLY TO AFFECTED AREA 3 TIMES A DAY 60 g 1 08/19/20 24 Active NovoLOG FlexPen 100 UNIT/ML Subcutaneous Solution Pen-injector (insulin aspart)Indications :Type 2 diabetes mellitus with hemoglobin A1c goal of less than 7.0% ([facility]) INJECTED UNDER THE SKIN BEFORE MEALS, [...] Tablet 1 09/23/20 24 Active Omnipod 5 IorI2O3 Pods Gen 5Indications:Type 2 diabetes mellitus with hemoglobin A1c goal of less than 8.0% ([facility]) Use as directed. Change every 3 days as directed. DX: E11.9 30 Each 3 09/25/19 25 Active documented as of this encounter (statuses as of 09/30/2024) Active Problems Problem Noted Date Diagnosed Date [...] eye 09/28/2020 Coronary artery disease invo lving [place] coronary artery of [place] heart without angina pectoris 12/16/2019 Assessment & [...] as of this encounter (statuses as of 09/30/2024) Resolved Problems Problem Noted Date Diagnosed Date Resolved Date Dehydration 06/05/2024 07/29/2024 Confusion 06/05/2024 07/29/2024 Vomiting and diarrhea 06/05/20242023 Recurrent Clostridium difficile diarrhea 01/23/2024 07/29/2024 Assessment & Plan (01/23/2024 1:12 PM EDT): Finish dificid as ordered Probiotics ordered, but patient has not started, recommended starting today Good hand hygiene, sanitize bathroom Widened pulse pressure 06/19/202307/31 COVID-19 virus infection [...] 12/21/2016 Diabetes mellitus 01/05/2014 12/21/2016 LEYVA RESEARCH OTHER*[id number] 01/05/2014 12/21/2016 Axillary pain 11/03/2013 12/21/2016 Obesity, [...] cath 09/201008/26/2011 12/21/2016 FOLLOWING SURGERY, [facility]25[facility]) 08/26/2011 12/21/2016 ADVANCE DIRECTIVE INFORMATION 04/17/2011 12/21/2016 Overview (01/21/2010): Yes, Patient instructed to provide copy of advance directive for provider to review and to be scanned into Electronic Medical Record ADVANCE DIRECTIVE INFORMATION 03/01/2011 12/21/2016 Overview (03/01/2011): Yes, Patient instructed to provide copy of advance directive for provider to review and to be scanned into Electronic Medical Record [facility] V710 Clinical Trial*[id number] 12/22/2010 04/14/2011 S/P aortic valve replacement 12/01/2010 08/26/2011 S/P AORTIC VALVE REPLACEMENT - #25 pericardial Mc valve 11/01/2010 06/28/2018 Overview (11/02/2010): Aortic valve replacement with #25 pericardial Mc valve, model 2800TFX, serial number [id number] (Dr. Walker) [facility] V710 Clinical Trial*[id number] 10/18/2010 11/21/2010 Type 2 diabetes mellitus wit [...] as of this encounter (statuses as of 09/30/2024) Immunizations Name Administration Dates Next Due COVID-19 mRNA, LNP-s, No Pre serve, 2-Dose Series (Moderna) 10/25/2021,02/16/2021,01/18/2021 HEP A - Hepatitis A (Adult > 18 yrs) 06/07/2018, 12/05/2017 Hepatitis B, 20+ yrs 06/07/2018,01/08/20 18,12/05/2017,06/15,10/27/2013,09/12/2013 PPD 10/26/2019,10/17/2019 Pneumococcal Conjugate Vacci ne, 20-valent ([id number]) 06/22/2023 Pneumococcal Polysaccharide PPV23 (Pneumovax) 01/02/2008 Seasonal [...] Industry 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 [address] [place] [address] Lakesha King, ROBERT [address] [address] 11/03/2024 11:00 AM EST Office Visit Sleep Disorders [facility] [address] [place] [id number] Christina Birch, [address] [place] [address] 11/04/2024 9:30 AM EST Office Visit Gastroenterology, [facility] [address] [place] [address] Tia Taylor CRNP [address] [place] [address] 01/26/2025 11:40 AM EDT Office Visit Nephrology, [facility] [address] [place] [address] Fidelina Baumann MD [address] [place] [address] Scheduled Procedures Name Priority Associated Diagnoses Date/Ti [...] 10/25/2021, 02/16/2021, 01/18/2021 CKD PHOS USE SMARTSET 66957 06/18/202405/26, 06/16/2023, 06/15/2023, Additional history exists HbA1c 08/01/2024 01/30/2024, 08/25, 07/31/2023, Additional history exists Diabetic Eye Exam 09/13/2024 09/13/2023, , 09/13/2023, Additional history exists B-12 09/18/2024 09/18/2023, 08/24, 2020, Additional history exists GFR 11/01/2024 05/01/2024, 12/23, 10/15/2023, Additional history exists Albumin/Creatinine Ratio 01/07/2025 024, 03/09/2023, 12/22/2022, Additional history exists CKD HGB USE SMARTSET 77878 01/07/202501/07, 01/08/2024, 10/15/2023, Additional history exists TSH [...] this encounter Medical Devices Implanted Type Area Bank Courier Device Identifier Shelf Expiration Date Model / Serial / Lot Cath Roselia Single Lumen - [id number] Implanted:Qty : 1 on 03/12/2008 at OR [facility] Left: Chest [facility] *DO NOT USE* 07/25/2012 21-4053-24 / / [id number] Sut Steel 6 M654g - [id number] Implanted:Qty : 1 on 11/01/2010 at OR [facility] N/A: Chest DO NOT USE M654G / / Sut Steel 6 M654g - [id number] Implanted:Qty : 1 on 11/01/2010 at OR [facility] N/A: Chest DO NOT USE M654G / / Valve Tarsha Aortic [id number] - [id number] Implanted:Qty : 1 on 11/01/2010 at OR [facility] N/A: Heart MC LIFESCIUni2 DANIEL 05/20/2012 [id number] / / [id number] Description:[email or web address] Mesh Soft 25d88tu - [id number] Implanted:Qty : 1 on 10/10/2019 by Gigi Hendrickson MD at [facility] N/A: Abdomen CR BARD : DAVOL [id number] 05/21/2024 [id number] / / [id number] Lens 22.5 Sn60wf - [id number] - [id number] Implanted:Qty : 1 on 09/15/2020 by Renaldo Cook, Cece Acosta MD at OR [facility] Right: Eye IVA : SURGICAL [id number] 05/13/2025 SN60 WF.225 / [id number] / [id number] Lens 21.5 Sn60wf - [id number] - [id number] Implanted:Qty : 1 on 12/19/2023 by Ramsey Burnett DO at OR [facility] Left: Eye IVA : SURGICAL 12/03/2024 SN60WF.2 15 / [id number] / documented as of this encounter [...] statute hierarchy) Jovita Yamile Adult Child Health Concrete Foreman resentative (appointed verbally by patient or by statute hierarchy) [email or web address] Care Teams Corporate Manager Relationship Specialty Start Date End Date Gregory Rausch MD [address] [place] [address] PCP - General Family Medicine 02/12/20 documented as of this encounter
--- OUTSIDE RECORDS SUMMARY | 2024-10-02 03:18 | External Medical Summary | Summary of Care ---
Author Name Unknown Organization [facility] Address [address] [place] [address] Phone [phone] Care Team Providers Care Gerentological Physiotherapist Name Role Phone Gregory Rausch MD Primary Care Provider [phone] Reason for Visit * Reason Comments Diabetes Follow-Up Dosage Adjustment In Person (Anticoag Cl inic) Encounter Details Date Type Department Care Team (Latest Contact Info) Description 09/30/2024 11:10 AM EST Office Visit Pharmacy, [facility] [address] [facility] [place] [address] Pharmacist1, [facility] [address] [facility] [place] [address] Type 2 diabetes mellitus with hemoglobin A1c goal of less than 7.0% ([facility])*; Type 2 diabetes mellitus with diabetic mononeuropathy, with long-term current use of insulin ([facility]); Type 2 diabetes mellitus with both eyes affected by mild nonproliferative retinopathy and macular edema, with long-term current use of insulin ([facility]); Type 2 diabetes mellitus with stage 3a chronic kidney disease, with long-term current use of insulin ([facility]) Allergies Active Allergy Reactions [...] ns:DM type 2, not at goal ([facility]) 3 every 15 minutes until glucose is > 100 mg/dL for hypoglycemia E11.9 100 Tab 3 07/06/20 21 Active ChessParkTouch Verio w/Device Kit Use up to 4 times a day E11.9 1 Kit 02/11/20 22 Active ChessParkTouch Delica Lancets 33G TEST 4 TIMES DAILY [...] 7.0% ([facility]) Use up to 50 [...] a day. 360 Tablet 06/16/20 24 Active Fluticasone Propionate 50 MCG/ACT Nasal [...] insulin ([facility]) Inject 36 Units under [...] bedtime. 60 Tablet 08/12/20 24 Active Klayesta 079938 UNIT/GM External Powder (Nystatin)Indicati ons:Candidal intertrigo APPLY TOPICALLY TO AFFECTED AREA 3 TIMES A DAY 60 g 1 08/19/20 24 Active NovoLOG FlexPen 100 UNIT/ML Subcutaneous Solution Pen-injector (insulin aspart)Indications :Type 2 diabetes mellitus with hemoglobin A1c goal of less than 7.0% ([facility]) INJECTED UNDER THE SKIN BEFORE [...] Tablet 1 09/23/20 24 Active Omnipod 5 [id number] Pods Gen 5Indications:Type 2 diabetes mellitus with hemoglobin A1c goal of less than 8.0% ([facility]) Use as directed. Change every 3 days as directed. DX: E11.9 30 Each 3 09/25/19 25 Active Ozempic (2 MG/DOSE) 8 MG/3ML Subcutaneous Solution Pen-injector (Semaglutide (2 MG/DOSE))Indicatio ns:weekly on fridays Inject 2 mg under the skin once a week. On Mondays 9 mL 3 09/30/19 25 Active Ozempic (2 MG/DOSE) 8 MG/3ML Subcutaneous Solution Pen-injector (Semaglutide (2 MG/DOSE))Indicatio ns:weekly on fridays Inject 2 mg under the skin once a week. 9 mL 1 06/16/20 24 025 Discontin ued(Refil l) documented as of this encounter (statuses as [...] [place] heart without angina pectoris 12/16/2019 Assessment & [...] DTP now with good results. Last EF 8/21 65%. Last GFR 06/14 50.6 After DTP, [...] 12/21/2016 Diabetes mellitus 01/05/2014 12/21/2016 LEYVA RESEARCH OTHER*[id number] 01/05/2014 12/21/2016 Axillary pain 11/03/2013 12/21/2016 Obesity, [...] cath 09/201008/26/2011 12/21/2016 FOLLOWING SURGERY, UNSPECIFI ED ([facility] 08/25/2011) 08/26/2011 12/21/2016 ADVANCE [...] scanned into Electronic Medical Record [facility] V710 Clinical Trial*[id number] 12/22/2010 04/14/2011 S/P aortic valve replacement 12/01/2010 08/26/2011 S/P AORTIC VALVE REPLACEMENT - #25 pericardial Mc valve 11/01/2010 06/28/2018 Overview (11/02/2010): Aortic valve replacement with #25 pericardial Mc valve, model 2800TFX, serial number [id number] (Dr. 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 Patient presents for return diabetic visit. DIABETES: Current diabetic medications: Ozempic 2mg every Sunday (Hasn't had a dose in > 1 week, possibly longer) Tresiba 40 units daily when no pods Novolog 24 units before meals when no pods. Omnipod Insulin Pump (Serial Number: need to get) Insulin: Novolog Basal Rate: 1.5units/hour Bolus: using carb counting Bolus Calculator: on and using ICR: 25 ISF: 25 Blood Glucose Goal Limits: 70-180 Bolus Calculator: Target B Correct above: 180 Minimum B Active Insulin Time: 2 hours Medication Injection Site: Abdomen Lifestyle: Diet: unchanged. She often skips meals. Reminded her to not take Novolog when she doesn't eat. History of Treatment Barriers: Lifestyle: None Therapy considerations: Cost Medication: None Glucose Review/SMBG: I was unable to see any Dexcom data. She had a sensor on but no data available in the fred. I showedher caregiver how to start a sensor on both the Dexcom G6 fred and the Omnipod jail guard. She needs anew sensor started and they will start one today. Per patient she has been doing SMBG and her lowest reading was 173, all <300. This is lower that recent Dexcom data. Hypoglycemia: Does your blood sugar go below 70 mg/dL? No Hyperglycemia symptoms present: none Goal <8 Recent Labs Units 09/30/24 1136 01/30/24 0827 09/18/23 0932 HEMOGLOBIN A1C - [facility] % -- -- 7.5* HEMOGLOBIN A1C POCT - [facility] % 10.7* 8.8* -- Recent Labs Units 05/01/24 1108 01/08/24 1222 10/15/23 1156 ESTIMATED GLOMERULAR FILTRATION RATE - [facility] mL/min 63 63 44* CREATININE - [facility] mg/dL 1.0 1.0 1.3* Lab Results Component Value Date/Time CREATININE - [facility] 1.0 05/01/2024 11:08 AM CREATININE - [facility] 1.0 01/08/2024 12:22 PM CREATININE - [facility] 1.3 (H) 10/15/2023 11:56 AM CREATININE - [facility] 0.80 08/02/2023 12:00 AM CREATININE - [facility] 0.88 06/26/2023 05:43 PM CREATININE - [facility] 0.99 03/05/2022 12:00 AM CREATININE - [facility] 1.2 (H) 09/07/2020 10:58 AM CREATININE - [facility] 1.1 (H) 05/21/2020 02:32 PM CREATININE - [facility] 1.1 (H) 05/19/2020 02:01 PM CREATININE POCT - [facility] 0.9 10/15/2017 12:22 PM CREATININE, RANDOM URINE - [facility] 58 01/08/2024 12:29 PM CREATININE, RANDOM URINE - [facility] 21 03/09/2023 12:44 PM CREATININE, RANDOM URINE - [facility] 21 12/22/2022 12:28 PM CREATININE, RANDOM URINE - [facility] 140 03/21/2017 10:41 AM CREATININE, RANDOM URINE - [facility] 23 10/13/2014 03:02 PM CREATININE, RANDOM URINE - [facility] 33 02/03/2014 05:34 PM HYPERTENSION: Patient on ACEi/ARB: no, CORINA induced cough BP Readings from Last 3 Encounters: 08/12/24 118/64 07/29/24 130/64 07/16/24 143/65 Blood pressure at goal: yes HYPERLIPIDEMIA: Does patient have clinical ASCVD? Yes, is patient LDL less than 55 mg/dL? Yes HEALTH MAINTENANCE REVIEW: Health Maintenance Due Topic Date Due HIV Screening Never done DXA Scan 12/18/2023 COVID-19 Vaccine () 05/25/2024 CKD PHOS USE SMARTSET 65600 06/18/2024 HbA1c 08/01/2024 Diabetic Eye Exam 09/13/2024 B-12 09/18/2024 ASSESSMENT & PLAN: ICD-10-CM 1. Type 2 diabetes mellitus with hemoglobin A1c goal of less than 7.0% ([facility]) E11.9 2. Type 2 diabetes mellitus with diabetic mononeuropathy, with long-term current use of insulin ([facility]) E11.41 Z79.4 3. Type 2 diabetes mellitus with both eyes affected by mild nonproliferative retinopathy and macular edema, with long-term current use of insulin ([facility]) E11.3213 Z79.4 4. Type 2 diabetes mellitus with stage 3a chronic kidney disease, with long-term current use of insulin ([facility]) E11.22 N18.31 Z79.4 BG Readings - Blood sugars not available. See above. She will start Dexcom today [facility] I sent a new order to [facility] for her pods and Dexcom supplies. Order is being worked on. I have not heard back that anything is needed so I expect order to be filled soon. Medications - Reviewed current regimen, patient is adherent to regimen. Increased Tresiba for now. She may need setting changes once she restarts Omnipod. Diet, Exercise, Lifestyle - see above . Discussed with patient today. Patient is agreeable to SMBG 4 time(s) daily. Patient aware to contact clinic if any hypoglycemia before next visit. MEDICATION CHANGES: yes, see below; preferred pharmacy: [facility] Diabetic Medications: Ozempic 2mg every Sunday INCREASE: Tresiba 44 units daily when no pods Novolog 24 units before meals when no pods. Omnipod Insulin Pump (Serial Number: need to get) Insulin: Novolog Basal Rate: 1.5units/hour Bolus: using carb counting Bolus Calculator: on and using ICR: 25 ISF: 25 Blood Glucose Goal Limits: 70-180 Bolus Calculator: Target B Correct above: 180 Minimum B Active Insulin Time: 2 hours Medication Injection Site: Abdomen HEALTH MAINTENANCE INTERVENTIONS: Labs: Ordered & Scheduled: Vitamin B12 Immunizations: Up to Date Foot Exam: Up to Date Eye Exam: needs completed Annual Wellness Visit: Up to Date I spent a total of 30-39 minutes (exact time 38 mins) on the date of service in preparation, delivery, and documentation of the care provided to Jovita Rose excluding any time spent in the performance of separately billed services or time spent by another provider/QHP. FOLLOW UP: Phone call follow up in 3 weeks 10/21/2024 Neeraj Romero RPh, [facility] Clinical Pharmacist - Head Resident Medication Therapy Management Clinic 09/30/2024, 11:19 AM documented in this encounter Plan of Treatment Upcoming Encounters Date Type Department Care Team (Late st Contact Info) Description 10/21/2024 11:00 AM EST Telemedicine Pharmacy, [facility] [place] [address] [place] [address] Pharmacist1, [facility] [address] [facility] [place] [address] 10/23/2024 9:30 AM EST Scheduled Telephone [facility], [facility] [address] [facility] [place] [address] Lakesha King, RDN [address] [place] [address] 11/03/2024 11:00 AM EST Office Visit Sleep Disorders Ctr [facility] [address] [place] [address] Christina Birch, [address] [place] [address] 11/04/2024 9:30 AM EST Office Visit Gastroenterology, [facility] [address] [facility] [place] [address] Tia Taylor CRNP [address] [place] [address] 01/26/2025 11:40 AM EDT Office Visit Nephrology, [facility] [address] [facility] [place] [address] Fidelina Baumann MD [address] [place] [address] Scheduled Procedures Name Priority Associated Diagnoses [...] 10/25/2021, 02/16/2021, 01/18/2021 CKD PHOS USE SMARTSET 46162 06/18/202405/26, 06/16/2023, 06/15/2023, Additional history exists Diabetic Eye Exam 09/13/2024 09/13/2023, , 09/13/2023, Additional history exists B-12 09/18/2024 09/18/2023, 08/24, 2020, Additional history exists GFR 11/01/2024 05/01/2024, 12/23, 10/15/2023, Additional history exists Albumin/Creatinine Ratio 01/07/2025 024, 03/09/2023, 12/22/2022, Additional history exists CKD HGB USE SMARTSET 56179 01/07/202501/07, 01/08/2024, 10/15/2023, Additional history exists TSH 01/07/2025 01/08/2024, 09/25, 06/06/2023, Additional history exists HbA1c 03/30/2025 09/30/2024, 05/0 04/2024, 09/18/2023, Additional history exists Diabetic Foot Exam 07/29/2025 [...] this encounter Medical Devices Implanted Type Area Casting Technician Device Identifier Shelf Expiration Date Model / Serial / Lot Cath Roselia Single Lumen - [id number] Implanted:Qty : 1 on 03/12/2008 at OR [facility] Left: Chest [employer] *DO NOT USE* 07/25/2012 21-4053-24 / / [id number] Sut Steel 6 M654g - [id number] Implanted:Qty : 1 on 11/01/2010 at OR [facility] N/A: Chest DO NOT USE M654G / / Sut Steel 6 M654g - [id number] Implanted:Qty : 1 on 11/01/2010 at OR [facility] N/A: Chest DO NOT USE M654G / / Valve Tarsha Aortic [id number] - [id number] Implanted:Qty : 1 on 11/01/2010 at OR [facility] N/A: Heart [employer] DANIEL 05/20/2012 [id number]-[id number] / / [id number] Description:[email or web address] Mesh Soft 00f06na - [id number] Implanted:Qty : 1 on 10/10/2019 by Gigi Hendrickson MD at [place] [facility] N/A: Abdomen CR BARD : DAVOL [id number] 05/21/2024 [id number] / / [id number] Lens 22.5 Sn60wf - [id number] - [id number] Implanted:Qty : 1 on 09/15/2020 by Cece Roland MD at OR [facility] Right: Eye IVA : SURGICAL [id number] 05/13/2025 SN60 WF.225 / [id number] / [id number] Lens 21.5 Sn60wf - [id number] - [id number] Implanted:Qty : 1 on 12/19/2023 by Ramsey Burnett DO at OR [facility] Left: Eye IVA : SURGICAL 12/03/2024 SN60WF.2 15 / [id number] / documented as of this encounter Procedures Procedure Name Priority Date/Time Associated Diagnosis Comments HEMOGLOBIN A1C, POINT OF CARE SARWAT 09/30/2024 11:36 AM EST documented in this encounter Results * (ABNORMAL) HEMOGLOBIN A1C, POINT OF CARE (09/30/2024 11:36 AM EST) Hemoglobin A1c 10.7(H) 4.0 - 5.6 % 09/30/2024 11:57 AM EST [facility] 56-02 Blood 09/30/2024 11:3 6 AM EST 09/30/2024 11:57 AM EST [facility] Sp Pharmacist1 LAB POINT OF C ARE TEST DOCKED DEVICE UNSOLICITED RESULTS Final Result [facility] [address] [place], [place] [id number] documented in this encounter Visit Diagnoses Diagnosis Dysuria- Primary [...] valve replaced by other means Atherosclerosis of [place] coronary artery of [place] heart without angina pectoris Schizoaffective disorder, bipolar type (HCC) Schizoaffective disorder, unspecified condition LEYVA (nonalcoholic steatohepatitis) Other chronic nonalcoholic liver disease Type 2 diabetes mellitus with diabetic mononeuropathy, with long-term current use of insulin (HCC)- Primary Atherosclerosis of [place] coronary artery of [place] heart without angina pectoris Hypertensive heart and [...] of insulin (HCC) Coronary artery disease involving [place] coronary artery of [place] heart without angina pectoris HTN, goal below 130/80 Unspecified essential hypertension Hypertensive heart and kidney disease with chronic diastolic congestive heart failure and stage 3a chronic kidney disease ([facility]) S/P TAVR (transcatheter aortic valve replacement) Heart valve replaced by other means Acquired hypothyroidism Unspecified hypothyroidism ANIVAL (generalized anxiety disorder) Generalized anxiety disorder Schizoaffective disorder, bipolar type ([facility]) Schizoaffective disorder, unspecified condition Recurrent Clostridium difficile diarrhea- Primary Intestinal infection due to clostridium difficile Type 2 diabetes mellitus with stage 3a chronic kidney disease, with long-term current use of insulin ([facility]) Type 2 diabetes mellitus with both eyes affected by mild nonproliferative retinopathy and macular edema, with long-term current use of insulin ([facility]) Hypertensive kidney disease with stage 3a chronic kidney disease ([facility]) Mood disorder ([facility]) Unspecified episodic mood disorder Type 2 diabetes mellitus with hemoglobin A1c goal of less than 7.0% ([facility])- Primary Type 2 diabetes mellitus with diabetic mononeuropathy, with long-term current use of insulin ([facility]) Type 2 diabetes mellitus with both eyes affected by mild nonproliferative retinopathy and macular edema, with long-term current use of insulin ([facility]) Type 2 diabetes mellitus with stage 3a chronic kidney disease, with long-term current use of insulin ([facility]) documented in this encounter Advance Directives * [...] statute hierarchy) Jovita Yamile Adult Child Health [place] [employer] resentative (appointed verbally by patient or by statute hierarchy) [email or web address] Care Teams Gerentological Physiotherapist Relationship Specialty Start Date End Date Gregory Rausch MD [address] [place] [address] PCP - General Family Medicine 02/12/20 documented as of this encounter
--- OUTSIDE RECORDS SUMMARY | 2024-10-02 03:19 | External Medical Summary | Summary of Care ---
Author Name Unknown Organization [facility] Address [address] [place] [address] Phone [phone] Care Team Providers Care Tie Presser Name Role Phone Gregory Rausch MD Primary Care Provider [phone] Reason for Visit * Reason Onset Date Comments Information 09/25/2024 Medication Pre-auth 09/25/2024 Omnipod 5 De [id number] Pods Gen 5 - received [facility] message that pa was started in cover my meds HYATT [id number] Encounter Details Date Type Department Care Team (Late st Contact Info) Description 09/25/2024 Telephone Centralized Clinical Pharmacy Services, Cindy Da Silva [address] [place] [address] [place] [address] Pharmacist1, [facility] [address] [facility] [id number] Information; Medication Pre-auth (Omnipod ... Allergies Active Allergy Reactions Criticality Noted Date Comments Adhesive Tape 07/02/2017 Can tolerate band-aids Glycerin Other (Please comment) 03/12/2008 Topical agents with glycein-burning & itching Lactose 12/09/2014 Dairy - gas Lisinopril Cough 01/21/2010 Monosodium Glutamate Edema Other 03/12/2008 Hands and feet Penicillins Rash 11/14/2007 documented as of this encounter (statuses as of 09/26/2024) Medications aspirin enteric coated 81 MG TBECIndications:Ao rtic valve disorder Take 1 Tab by mouth daily. 90 Tab 11 09/30/19 19 Active AZO Cranberry 250-30 MG Oral Tablet Take 1 Tablet by mouth in the morning and 1 Tablet before bedtime. Active BD Glucose 5 GM Oral Tablet Chewable (Glucose)Indicatio ns:DM type 2, not at goal ([facility]) 3 every 15 minutes until glucose is [...] with preserved ejection fraction (HFpEF) ([facility]) Take 1 Tablet by mouth in the morning and 1 Tablet before bedtime. 180 Tablet 3 01/22/20 24 Active BD Pen Needle Short U/F 31G X 8 MMIndications:Type 2 diabetes mellitus with hemoglobin A1c goal of less than 7.0% ([facility]),Type 2 diabetes mellitus with stage 3a chronic kidney disease, with long-term current use of insulin ([facility]) Use with insulin 4 times daily 400 [...] less than 7.0% ([facility]) Use up to 50 units per day [...] bedtime. 60 Tablet 08/12/20 24 Active Klayesta [id number] UNIT/GM External Powder (Nystatin)Indicati ons:Candidal intertrigo APPLY TOPICALLY TO AFFECTED AREA 3 TIMES A DAY 60 g 1 08/19/20 24 Active NovoLOG FlexPen 100 UNIT/ML Subcutaneous Solution Pen-injector (insulin aspart)Indications :Type 2 diabetes mellitus with hemoglobin A1c goal of less than 7.0% ([facility]) INJECTED UNDER THE SKIN BEFORE MEALS, 3 [...] Tablet 1 09/23/20 24 Active Omnipod 5 [id number] Pods Gen 5Indications:Type 2 diabetes mellitus with hemoglobin A1c goal of less than 8.0% ([facility]) Use as directed. Change every 3 days as directed. DX: E11.9 30 Each 3 09/25/19 25 Active documented as of this encounter (statuses as of 09/26/2024) Active Problems Problem Noted Date Diagnosed Date [...] eye 09/28/2020 Coronary artery disease invo lving sleetmute coronary artery of sleetmute heart without angina pectoris 12/16/2019 Assessment & [...] as of this encounter (statuses as of 09/26/2024) Resolved Problems Problem Noted Date Diagnosed Date [...] 12/21/2016 Diabetes mellitus 01/05/2014 12/21/2016 LEYVA RESEARCH OTHER*[id number] 01/05/2014 12/21/2016 Axillary pain 11/03/2013 12/21/2016 Obesity, [...] Medical Record [facility] V710 Clinical Trial*[id number] 12/22/2010 04/14/2011 S/P aortic valve replacement 12/01/2010 08/26/2011 S/P AORTIC VALVE REPLACEMENT - #25 pericardial Mc valve 11/01/2010 06/28/2018 Overview (11/02/2010): Aortic valve replacement with #25 pericardial Mc valve, model 2800TFX, serial number [id number] (Dr. Walker) [facility] V710 Clinical Trial*[id number] 10/18/2010 11/21/2010 Type 2 diabetes mellitus wit [...] as of this encounter (statuses as of 09/26/2024) Immunizations Name Administration Dates Next Due COVID-19 mRNA, LNP-s, No Pre serve, 2-Dose Series (Moderna) 10/25/2021,02/16/2021,01/18/2021 HEP A - Hepatitis A (Adult > 18 yrs) 06/07/2018, 12/05/2017 Hepatitis B, 20+ yrs 06/07/2018,01/08/20 18,12/05/2017,06/15,10/27/2013,09/12/2013 PPD 10/26/2019,10/17/2019 Pneumococcal Conjugate Vacci ne, 20-valent ([id number]) 06/22/2023 Pneumococcal Polysaccharide PPV23 (Pneumovax) 01/02/2008 Seasonal [...] 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 However, [facility] pharmacists are only able to process CGM supplies [facility]. Forwarding request to nurse fournier for assistance. Please advise. Thank you, Kori Lucas, PharmD Clinical Pharmacist [facility] Clinical Pharmacy Services ([facility]) 09/26/24 12:58 PM [phone] * Telephone Encounter - Zoya Sorensen CPhT - 09/26/2024 12:13 PM EST Pt has GG does [facility]? This is a new [place] request. Upon review of this prior authorization request, I verified this request is appropriate. This is prescribed by a department for which [facility] is authorized to review prior authorizations This [...] note, there is nothing currently pending in [facility] for this request. Please advise how to proceed. Thank you, Zoya Sorensen Under Cutting Machine Operator Centralized Clinical Pharmacy Services 09/26/2024,12:13 PM * Telephone Encounter - Pinky Avelar PHARM Tech - 09/25/2024 5:09 PM EST Pharmacy calling to inform doctor that the patient's insurance will not pay for this medication without a completed prior authorization. Did not confirm this information with the pharmacy. Pt's current insurance information is as follows: Patient name: Jovita Rose ID number: [id number] BIN number: [id number] PCN number: [id number] Group number: [id number] Subscriber name: Jovita Rose Primary or Secondary Insurance:Primary Medication: Omnipod 5 [id number] Pods Gen 5 Reason for Request: required per pharmacy via [facility] Pharmacy and phone number: [id number] [phone] [facility] Rx plan and phone number: tamrasim tony What alternative medications does the pharmacy have in stock?: n/a Thank you for your assistance Pinky Avelar Compliance And Control Analyst II Central[facility] Clinical Pharmacy Services ([facility]) 09/25/2024,5:09 PM * Telephone Encounter - Neeraj Matthew RPh - 09/25/2024 2:29 PM EST Patient Phone Numbers Caller's name: Jovita Preferred call back number(OFFICE NUMBER FOR HH): [phone] Reason for call: Patient calling asking for the Omnipod 5 Order to be sent to [facility]. Left message for Jovita explaining her Omnipod pods will more than likely need to come from a diabetes supply company. She needs to call the clinic back to discuss. If I don not hear back from her I will send RX at to [facility]. Neeraj Romero RPh, [facility] Clinical Pharmacist [facility] 09/25/2024, 2:31 PM * Telephone Encounter - Kori Alvarado CPhT - 09/25/2024 1:44 PM EST Caller's name: Jovita Preferred call back number(OFFICE NUMBER FOR HH): [phone] Reason for call: Patient calling asking for the Omnipod 5 Order to be sent to [facility]. Thank you, Kori Alvarado CPhT Under Cutting Machine Operator II [facility] ([facility]) 09/25/2024,1:44 PM documented in this encounter Plan of Treatment Upcoming Encounters Date Type Department Care Team (Late st Contact Info) Description 09/30/2024 11:10 AM EST Office Visit Pharmacy[facility] [address] [place] [address] Pharmacist1, [facility] [address] [place] [address] 10/23/2024 9:30 AM EST Scheduled Telephone [facility] [place] [address] [place] [address] Lakesha King RDN [address] [facility] [place] [address] 11/03/2024 11:00 AM EST Office Visit Sleep Disorders Ctr [facility] [address] [place] [phone] Christina Birch DO [address] [place] [address] 11/04/2024 9:30 AM EST Office Visit Gastroenterology, [facility] [address] [place] [address] Tia Taylor CRNP [address] [place] [address] 01/26/2025 11:40 AM EDT Office Visit Nephrology, [facility] [address] [facility] [place] [address] Fidelina Baumann MD [address] [place] [address] Scheduled Procedures Name Priority Associated Diagnoses Date/Ti [...] 10/25/2021, 02/16/2021, 01/18/2021 CKD PHOS USE SMARTSET 55025 06/18/202405/26, 06/16/2023, 06/15/2023, Additional history exists HbA1c 08/01/2024 01/30/2024, 08/25, 07/31/2023, Additional history exists Diabetic Eye Exam 09/13/2024 09/13/2023, , 09/13/2023, Additional history exists B-12 09/18/2024 09/18/2023, 08/24, 2020, Additional history exists GFR 11/01/2024 05/01/2024, 12/23, 10/15/2023, Additional history exists Albumin/Creatinine Ratio 01/07/2025 024, 03/09/2023, 12/22/2022, Additional history exists CKD HGB USE SMARTSET 56532 01/07/202501/07, 01/08/2024, 10/15/2023, Additional history exists TSH [...] encounter Medical Devices Implanted Type Area Occupational Therapy Teacher Device Identifier Shelf Expiration Date Model / Serial / Lot Cath Roselia Single Lumen - [id number] Implanted:Qty : 1 on 03/12/2008 at OR [facility] Left: Chest [employer] *DO NOT USE* 07/25/2012 21-4053-24 / / [id number] Sut Steel 6 M654g - [id number] Implanted:Qty : 1 on 11/01/2010 at OR [facility] N/A: Chest DO NOT USE M654G / / Sut Steel 6 M654g - [id number] Implanted:Qty : 1 on 11/01/2010 at OR [facility] N/A: Chest DO NOT USE M654G / / Valve Tarsha Aortic [id number] - [id number] Implanted:Qty : 1 on 11/01/2010 at OR [facility] N/A: Heart [employer] D[employer]EL 05/20/2012 2800TFX-[id number] / / [id number] Description:[email or web address] Mesh Soft 90z68oz - [id number] Implanted:Qty : 1 on 10/10/2019 by Gigi Hendrickson MD at OR [facility] N/A: Abdomen CR BARD : DAVOL [id number] 05/21/2024 [id number] / / [id number] Lens 22.5 Sn60wf - [id number] - [id number] Implanted:Qty : 1 on 09/15/2020 by Renaldo Cook, Cece Acosta MD at OR [facility] Right: Eye IVA : SURGICAL [id number] 05/13/2025 SN60 WF.225 / [id number] / [id number] Lens 21.5 Sn60wf - [id number] - [id number] Implanted:Qty : 1 on 12/19/2023 by Ramsey Burnett DO at OR [facility] Left: Eye IVA : SURGICAL 12/03/2024 SN60WF.2 15 / [id number] / documented as of this encounter Visit Diagnoses Diagnosis Dysuria- Primary Atherosclerosis of aorta (HCC) Atherosclerosis of aorta Type 2 diabetes mellitus with hemoglobin A1c goal of less than 7.0% (HCC) DANYELLE on CPAP Obstructive sleep apnea (adult) (pediatric) Hypertensive heart and kidney disease with chronic diastolic congestive heart failure and stage 3a chronic kidney disease ([facility]) S/P TAVR (transcatheter aortic valve replacement) Heart valve replaced by other means Atherosclerosis of sleetmute coronary artery of sleetmute heart without angina pectoris Schizoaffective disorder, bipolar type (HCC) Schizoaffective disorder, unspecified condition LEYVA (nonalcoholic steatohepatitis) Other chronic nonalcoholic liver disease Type 2 diabetes mellitus with diabetic mononeuropathy, with long-term current use of insulin ([facility])- Primary Atherosclerosis of sleetmute coronary artery of sleetmute heart without angina pectoris Hypertensive heart and [...] of insulin (HCC) Coronary artery disease involving sleetmute coronary artery of sleetmute heart without angina pectoris HTN, goal below 130/80 Unspecified essential hypertension Hypertensive heart and kidney disease with chronic diastolic congestive heart failure and stage 3a chronic kidney disease ([facility]) S/P TAVR (transcatheter aortic valve replacement) Heart valve replaced by other means Acquired hypothyroidism Unspecified hypothyroidism ANIVAL (generalized anxiety disorder) Generalized anxiety disorder Schizoaffective disorder, bipolar type (HCC) Schizoaffective disorder, unspecified condition Recurrent Clostridium difficile diarrhea- Primary Intestinal infection due to clostridium difficile Type 2 diabetes mellitus with stage 3a chronic kidney disease, with long-term current use of insulin ([facility]) Type 2 diabetes mellitus with both eyes affected by mild nonproliferative retinopathy and macular edema, with long-term current use of insulin ([facility]) Hypertensive kidney disease with stage 3a chronic kidney disease (HCC) Mood disorder ([facility]) Unspecified episodic mood disorder Type 2 diabetes mellitus with hemoglobin A1c goal of less than 8.0% ([facility])- Primary documented in this encounter Advance Directives [...] statute hierarchy) Jovita Ovalle Adult Child Health Reconditioner resentative (appointed verbally by patient or by statute hierarchy) [email or web address] Care Teams Tie Presser Relationship Specialty Start Date End Date Gregory Rausch MD [address] [place] [address] PCP - General Family Medicine 02/12/20 documented as of this encounter
--- OUTSIDE RECORDS SUMMARY | 2024-10-02 03:19 | External Medical Summary | Summary of Care ---
Author Name Unknown Organization [facility] Address [address] [place] [address] Phone [phone] Care Team Providers Care Cable Technician Name Role Phone Gregory Rausch MD Primary Care Provider [phone] Reason for Visit * Reason Onset Date Comments Information 09/25/2024 Medication Pre-auth 09/25/2024 Omnipod 5 De [id number] Pods Gen 5 - received FIMS message that pa was started in cover my meds HYATT [id number] Encounter Details Date Type Department Care Team (Late st Contact Info) Description 09/25/2024 Telephone Centralized Clinical Pharmacy Services, Cindy Da Silva [address] [place] [address] [place] [address] Pharmacist1, [facility] [address] [facility] [facility] [id number] Information; Medication Pre-auth (Omnipod ... Allergies Active [...] (Glucose)Indicatio ns:DM type 2, not at goal ([facility] [...] bedtime. 60 Tablet 08/12/20 24 Active Klayesta [id number] UNIT/GM External Powder (Nystatin)Indicati ons:Candidal intertrigo APPLY TOPICALLY TO AFFECTED AREA 3 TIMES A DAY 60 g 1 08/19/20 24 Active NovoLOG FlexPen 100 UNIT/ML Subcutaneous Solution Pen-injector (insulin aspart)Indications :Type 2 diabetes mellitus with hemoglobin A1c goal of less than 7.0% ([facility]) INJECTED UNDER THE SKIN BEFORE MEALS, 3 [...] Tablet 1 09/23/20 24 Active Omnipod 5 [id number] Pods Gen 5Indications:Type 2 diabetes mellitus with hemoglobin A1c goal of less than 8.0% ([facility]) Use as directed. Change every 3 days [...] eye 09/28/2020 Coronary artery disease invo lving moapa coronary artery of moapa heart without angina pectoris 12/16/2019 Assessment & [...] 12/21/2016 Diabetes mellitus 01/05/2014 12/21/2016 LEYVA RESEARCH OTHER*[id number] 01/05/2014 12/21/2016 Axillary pain 11/03/2013 12/21/2016 Obesity, [...] cath 09/201008/26/2011 12/21/2016 FOLLOWING SURGERY, UNSPECIFI ED ([facility] BSO 08/25/2011) 08/26/2011 12/21/2016 ADVANCE DIRECTIVE [...] [facility] V710 Clinical Trial*[id number] 12/22/2010 04/14/2011 S/P aortic valve replacement 12/01/2010 08/26/2011 S/P AORTIC VALVE REPLACEMENT - #25 pericardial Mc valve 11/01/2010 06/28/2018 Overview (11/02/2010): Aortic valve replacement with #25 pericardial Mc valve, model 2800TFX, serial number [id number] (Dr. 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 However, [facility] pharmacists are only able to process CGM supplies via [facility]. Forwarding request to nurse fournier for assistance. Please advise. Thank you, Kori Lucas, PharmD Clinical Pharmacist Centralized Clinical Pharmacy Services ([facility]PS) 09/26/24 12:58 PM [phone] * Telephone Encounter - Zoya Sorensen CPhT - 09/26/2024 12:13 PM EST Pt has GG does [facility] This is a new [place] request. Upon review of this prior authorization request, I verified this request is appropriate. This is prescribed by a department for which [facility] is authorized to review prior authorizations This [...] there is nothing currently pending in [facility] for this request. Please advise how to proceed. Thank you, Zoya Sorensen Specialty Therapist Centralized Clinical Pharmacy Services 09/26/2024,12:13 PM * Telephone Encounter - Pinky Avelar PHARM Tech - 09/25/2024 5:09 PM EST Pharmacy calling to inform doctor that the patient's insurance will not pay for this medication without a completed prior authorization. Did not confirm this information with the pharmacy. Pt's current insurance information is as follows: Patient name: Jovita Rose ID number: [id number] BIN number: [id number] PCN number: [id number] Group number: [id number] Subscriber name: Jovita Rose Primary or Secondary Insurance:Primary Medication: Omnipod 5 [id number] Pods Gen 5 Reason for Request: required per pharmacy via [facility] Pharmacy and phone number: [id number] [address] [facility] Rx plan and phone number: tamrasim tony What alternative medications does the pharmacy have in stock?: n/a Thank you for your assistance Pinky Avelar Textile Examiner II Centralized Clinical Pharmacy Services ([facility]PS) 09/25/2024,5:09 PM * Telephone Encounter - Neeraj Matthew RPh - 09/25/2024 2:29 PM EST Patient Phone Numbers Caller's name: Jovita Preferred call back number(OFFICE NUMBER FOR HH): [phone] Reason for call: Patient calling asking for the Omnipod 5 Order to be sent to [facility]. Left message for Jovita explaining her Omnipod pods will more than likely need to come from a diabetes supply company. She needs to call the clinic back to discuss. If I don not hear back from her I will send RX at to [facility]. Neeraj Romero RPh, [facility] Clinical Pharmacist Medication Therapy Management Clinic 09/25/2024, 2:31 PM * Telephone Encounter - Kori Alvarado CPhT - 09/25/2024 1:44 PM EST Caller's name: Jovita Preferred call back number(OFFICE NUMBER FOR HH): [phone] Reason for call: Patient calling asking for the Omnipod 5 Order to be sent to [facility]. Thank you, Kori Alvarado CPhT Specialty Therapist II Centralized Clinical Pharmacy Services ([facility]) 09/25/2024,1:44 PM documented in this encounter Plan of Treatment Upcoming Encounters Date Type Department Care Team (Late st Contact Info) Description 09/30/2024 11:10 AM EST Office Visit Pharmacy, [facility] [address] [place] [address] Pharmacist1, [facility] [address] [place] [address] 10/23/2024 9:30 AM EST Scheduled Telephone [facility] [place] [address] [place] [address] Lakesha King RDN [address] [facility] [place] [address] 11/03/2024 11:00 AM EST Office Visit Sleep Disorders C[facility] [address] [place] [id number] Christina Birch DO [address] [place] [address] 11/04/2024 9:30 AM EST Office Visit Gastroenterology, [facility] [address] [place] [address] Tia Taylor CRNP [address] [place] [address] 01/26/2025 11:40 AM EDT Office Visit Nephrology, [facility] [address] [facility] [place] [address] Fidelina Baumann MD [address] [place] [address] Scheduled Procedures Name Priority Associated Diagnoses Date/Ti [...] 10/25/2021, 02/16/2021, 01/18/2021 CKD PHOS USE SMARTSET 98917 06/18/202405/26, 06/16/2023, 06/15/2023, Additional history exists HbA1c 08/01/2024 01/30/2024, 08/25, 07/31/2023, Additional history exists Diabetic Eye Exam 09/13/2024 09/13/2023, , 09/13/2023, Additional history exists B-12 09/18/2024 09/18/2023, 08/24, 2020, Additional history exists GFR 11/01/2024 05/01/2024, 12/23, 10/15/2023, Additional history exists Albumin/Creatinine Ratio 01/07/2025 024, 03/09/2023, 12/22/2022, Additional history exists CKD HGB USE SMARTSET 78706 01/07/202501/07, 01/08/2024, 10/15/2023, Additional history exists TSH [...] this encounter Medical Devices Implanted Type Area Microsoft Dynamics Ax Developer Device Identifier Shelf Expiration Date Model / Serial / Lot Cath Roselia Single Lumen - [id number] Implanted:Qty : 1 on 03/12/2008 at OR [facility] Left: Chest [employer] *DO NOT USE* 07/25/2012 21-4053-24 / / [id number] Sut Steel 6 M654g - [id number] Implanted:Qty : 1 on 11/01/2010 at OR [facility] N/A: Chest DO NOT USE M654G / / Sut Steel 6 M654g - [id number] Implanted:Qty : 1 on 11/01/2010 at OR [facility] N/A: Chest DO NOT USE M654G / / Valve Tarsha Aortic [id number] - [id number] Implanted:Qty : 1 on 11/01/2010 at OR [facility] N/A: Heart [employer] D[employer]EL 05/20/2012 2800TFX-25 / / [id number] Description:[email or web address] Mesh Soft 68q70yn - [id number] Implanted:Qty : 1 on 10/10/2019 by Gigi Hendrickson MD at [place] [facility] N/A: Abdomen CR BARD : DAVOL [id number] 05/21/2024 [id number] / / [id number] Lens 22.5 Sn60wf - [id number] - [id number] Implanted:Qty : 1 on 09/15/2020 by Renaldo Cook, Cece Acosta MD at OR [facility] Right: Eye IVA : SURGICAL [id number] 05/13/2025 SN60 WF.225 / [id number] / [id number] Lens 21.5 Sn60wf - [id number] - [id number] Implanted:Qty : 1 on 12/19/2023 by Ramsey Burnett DO at OR [facility] Left: Eye IVA : SURGICAL 12/03/2024 SN60WF.2 15 / [id number] / documented as of this encounter Visit Diagnoses Diagnosis Dysuria- Primary Atherosclerosis of aorta (HCC) Atherosclerosis of aorta Type 2 diabetes mellitus with hemoglobin A1c goal of less than 7.0% (HCC) DANYELLE on CPAP Obstructive sleep apnea (adult) (pediatric) Hypertensive heart and kidney disease with chronic diastolic congestive heart failure and stage 3a chronic kidney disease ([facility]) S/P TAVR (transcatheter aortic valve replacement) Heart valve replaced by other means Atherosclerosis of moapa coronary artery of moapa heart without angina pectoris Schizoaffective disorder, bipolar type (HCC) Schizoaffective disorder, unspecified condition LEYVA (nonalcoholic steatohepatitis) Other chronic nonalcoholic liver disease Type 2 diabetes mellitus with diabetic mononeuropathy, with long-term current use of insulin ([facility])- Primary Atherosclerosis of moapa coronary artery of moapa heart without angina pectoris Hypertensive heart and [...] of insulin (HCC) Coronary artery disease involving moapa coronary artery of moapa heart without angina pectoris HTN, goal below 130/80 Unspecified essential hypertension Hypertensive heart and kidney disease with chronic diastolic congestive heart failure and stage 3a chronic kidney disease ([facility]) S/P TAVR (transcatheter aortic valve replacement) Heart [...] insulin ([facility]) Type 2 diabetes mellitus with both eyes affected by mild nonproliferative retinopathy and macular edema, with long-term current use of insulin ([facility]) Hypertensive kidney disease with stage 3a chronic kidney disease (HCC) Mood disorder ([facility]) Unspecified episodic mood disorder Type 2 diabetes mellitus with hemoglobin A1c goal of less than 8.0% ([facility])- Primary documented in this encounter Advance Directives [...] statute hierarchy) Jovita Ovalle Adult Child Health Programming Director resentative (appointed verbally by patient or by statute hierarchy) [email or web address] Care Teams Cable Technician Relationship Specialty Start Date End Date Gregory Rausch MD [address] [place] [address] PCP - General Family Medicine 02/12/20 documented as of this encounter
--- OUTSIDE RECORDS SUMMARY | 2024-10-02 03:19 | External Medical Summary | Summary of Care ---
Author Name Unknown Organization [facility] Address [address] [place] [address] Phone [phone] Care Team Providers Care Organizational Effectiveness Director Name Role Phone Gregory Rausch MD Primary Care Provider [phone] Reason for Visit * Reason Onset Date Comments Information 09/25/2024 Encounter Details Date Type Department Care Team (Late st Contact Info) Description 09/25/2024 Telephone Centralized Clinical Pharmacy Services, Cindy Da Silva [address] [place] [address] [place] [address] Pharmacist1, [facility] [address] [facility] [id number] Information Allergies Active Allergy Reactions Criticality Noted Date Comments Adhesive Tape 07/02/2017 Can tolerate band-aids Glycerin Other (Please comment) 03/12/2008 Topical agents with glycein-burning & itching Lactose 12/09/2014 Dairy - gas Lisinopril Cough 01/21/2010 Monosodium Glutamate Edema Other 03/12/2008 Hands and feet Penicillins Rash 11/14/2007 documented as of this encounter (statuses as of 09/25/2024) Medications aspirin enteric coated 81 MG TBECIndications:Ao rtic valve disorder Take 1 Tab by mouth daily. 90 Tab 11 09/30/19 19 Active AZO Cranberry 250-30 MG Oral Tablet Take 1 Tablet by mouth in the morning and 1 Tablet before bedtime. Active BD Glucose 5 GM Oral Tablet Chewable (Glucose)Indicatio ns:DM type 2, not at goal ([facility] as needed 200 Each 03/14/20 24 Active Aquaphor External Ointment Apply [...] bedtime. 60 Tablet 08/12/20 24 Active Klayesta 583086 UNIT/GM External Powder (Nystatin)Indicati ons:Candidal intertrigo APPLY TOPICALLY TO AFFECTED AREA 3 TIMES A DAY 60 g 1 08/19/20 24 Active NovoLOG FlexPen 100 UNIT/ML Subcutaneous Solution Pen-injector (insulin aspart)Indications :Type 2 diabetes mellitus with hemoglobin A1c goal of less than 7.0% ([facility]) INJECTED UNDER THE SKIN BEFORE MEALS, 3 [...] Tablet 1 09/23/20 24 Active Omnipod 5 [id number] Pods Gen 5Indications:Type 2 diabetes mellitus with hemoglobin A1c goal of less than 8.0% (HCC) Use as directed. Change every 3 days as directed. DX: E11.9 30 Each 3 09/25/19 25 Active documented as of this encounter (statuses as of 09/25/2024) Active Problems Problem Noted Date Diagnosed Date [...] eye 09/28/2020 Coronary artery disease invo lving [place] coronary artery of [place] heart without angina pectoris 12/16/2019 Assessment & [...] as of this encounter (statuses as of 09/25/2024) Resolved Problems Problem Noted Date Diagnosed Date [...] 12/21/2016 Diabetes mellitus 01/05/2014 12/21/2016 LEYVA RESEARCH OTHER*[id number] 01/05/2014 12/21/2016 Axillary pain 11/03/2013 12/21/2016 Obesity, [...] 09/201008/26/2011 12/21/2016 FOLLOWING SURGERY, UNSPECIFI ED ([facility] BSO 08/25/2011) 08/26/2011 12/21/2016 ADVANCE DIRECTIVE [...] [facility] V[facility] Clinical Trial*[id number] 12/22/2010 04/14/2011 S/P aortic valve replacement 12/01/2010 08/26/2011 S/P AORTIC VALVE REPLACEMENT - #25 pericardial Mc valve 11/01/2010 06/28/2018 Overview (11/02/2010): Aortic valve replacement with #25 pericardial Mc valve, model 2800TFX, serial number [id number] (Dr. Walker) [facility] V710 Clinical Trial*[id number] 10/18/2010 11/21/2010 Type 2 diabetes mellitus wit [...] severity unknown 07/23/2013 Major depressive disorder 02/24/2009 Overview (07/17/2017): [...] as of this encounter (statuses as of 09/25/2024) Immunizations Name Administration Dates Next Due COVID-19 mRNA, LNP-s, No Pre serve, 2-Dose Series (Moderna) 10/25/2021,02/16/2021,01/18/2021 HEP A - Hepatitis A (Adult > 18 yrs) 06/07/2018, 12/05/2017 Hepatitis B, 20+ yrs 06/07/2018,01/08/20 18,12/05/2017,06/15,10/27/2013,09/12/2013 PPD 10/26/2019,10/17/2019 Pneumococcal Conjugate Vacci ne, 20-valent ([id number]) 06/22/2023 Pneumococcal Polysaccharide PPV23 (Pneumovax) 01/02/2008 Seasonal [...] Does the household have a [facility]ension [facility] hospitalr source of income? 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 Answer Date of Assessment Author No 11/06/2017 4:30 PM Gisela Greer, RN * Are you blind or do [...] Jovita Preferred call back number(OFFICE NUMBER FOR ): [phone] Reason for call: Patient calling asking for the Omnipod 5 Order to be sent to [facility]. Left message for Jovita explaining her Omnipod pods will more than likely need to come from a diabetes supply company. She needs to call the clinic back to discuss. If I don not hear back from her I will send RX at endo day to [facility]. Neeraj So. Paris Romero, [facility] Clinical Pharmacist Medication Therapy Management Clinic 09/25/2024, 2:31 PM * Telephone Encounter - Kori Alvarado CPhT - 09/25/2024 1:44 PM EST Caller's name: Jovita Preferred call back number(OFFICE NUMBER FOR ): [phone] Reason for call: Patient calling asking for the Omnipod 5 Order to be sent to [facility]. Thank you, Kori Alvarado CPhT Nuclear Fuel Enrichment Technician II Centralized Clinical Pharmacy Services ([facility]) 09/25/2024,1:44 PM documented in this encounter Plan of Treatment Upcoming Encounters Date Type Department Care Team (Late st Contact Info) Description 09/30/2024 11:10 AM EST Office Visit Pharmacy, [facility] [address] [facility] [place] [address] Pharmacist1, [facility] [address] [facility] [place] [address] 10/23/2024 9:30 AM EST Scheduled Telephone [facility] [address] [address] Lakesha King, RDN [address] [place] [address] 11/03/2024 11:00 AM EST Office Visit Sleep Disorders [facility] [address] [place] [phone] Christina Birch DO [address] [place] [address] 11/04/2024 9:30 AM EST Office Visit Gastroenterology, [facility] [address] [place] [address] Tia Taylor CRNP [address] [place] [address] 01/26/2025 11:40 AM EDT Office Visit Nephrology, [facility] [address] [place] [address] Fidelina Baumann MD [address] [place] [address] Scheduled Procedures Name Priority Associated Diagnoses Date/Ti [...] 10/25/2021, 02/16/2021, 01/18/2021 CKD PHOS USE SMARTSET 03554 06/18/202405/26, 06/16/2023, 06/15/2023, Additional history exists HbA1c 08/01/2024 01/30/2024, 08/25, 07/31/2023, Additional history exists Diabetic Eye Exam 09/13/2024 09/13/2023, , 09/13/2023, Additional history exists B-12 09/18/2024 09/18/2023, 08/24, 2020, Additional history exists GFR 11/01/2024 05/01/2024, 12/23, 10/15/2023, Additional history exists Albumin/Creatinine Ratio 01/07/2025 024, 03/09/2023, 12/22/2022, Additional history exists CKD HGB USE SMARTSET 48604 01/07/202501/07, 01/08/2024, 10/15/2023, Additional history exists TSH 01/07/2025 01/08/2024, 09/25, 06/06/2023, Additional history exists Diabetic Foot Exam 07/29/2025 07/29/2024, 0 2020, 12/05/2018, Additional history exists Colonoscopy 07/16/2027 07/16/2024, 06/25, 06/27/2023, Additional history exists Colorectal Cancer Screening 07/16/2027 Sigmoidoscopy 06/08/2028 06/08/2023 DTap/Tdap Vaccines (3 - [...] this encounter Medical Devices Implanted Type Area Dry Janitor Device Identifier Shelf Expiration Date Model / Serial / Lot Cath Roselia Single Lumen - [id number] Implanted:Qty : 1 on 03/12/2008 at OR [facility] Left: Chest [facility] *DO NOT USE* 07/25/2012 21-4053-24 / / [id number] Sut Steel 6 M654g - [id number] Implanted:Qty : 1 on 11/01/2010 at OR [facility] N/A: Chest DO NOT USE M654G / / Sut Steel 6 M654g - [id number] Implanted:Qty : 1 on 11/01/2010 at OR [facility] N/A: Chest DO NOT USE M654G / / Valve Tarsha Aortic [id number] - [id number] Implanted:Qty : 1 on 11/01/2010 at OR [facility] N/A: Heart [employer] 05/20/2012 2800TFX-25 / / [id number] Description:[email or web address] Mesh Soft 91z79de - [id number] Implanted:Qty : 1 on 10/10/2019 by Gigi [place]ricks[place] [facility] N/A: Abdomen CR BARD : DAVOL [id number] 05/21/2024 [id number] / / [id number] Lens 22.5 Sn60wf - [id number] - [id number] Implanted:Qty : 1 on 09/15/2020 by Cece Roland MD at [facility] Right: Eye IVA : SURGICAL [id number] 05/13/2025 SN60 WF.225 / [id number] / [id number] Lens 21.5 Sn60wf - [id number] - [id number] Implanted:Qty : 1 on 12/19/2023 [facility]: Eye IVA : SURGICAL 12/03/2024 SN60WF.2 15 / [id number] / documented as of this encounter [...] valve replaced by other means Atherosclerosis of [place] coronary artery of [place] heart without angina pectoris Schizoaffective disorder, bipolar type (HCC) Schizoaffective disorder, unspecified condition LEYVA (nonalcoholic steatohepatitis) Other chronic nonalcoholic liver disease Type 2 diabetes mellitus with diabetic mononeuropathy, with long-term current use of insulin (HCC)- Primary Atherosclerosis of [place] coronary artery of [place] heart without angina pectoris Hypertensive heart and [...] of insulin (HCC) Coronary artery disease involving [place] coronary artery of [place] heart without angina pectoris HTN, goal below 130/80 Unspecified essential hypertension 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) S/P TAVR (transcatheter aortic valve replacement) Heart valve replaced by other means Acquired hypothyroidism Unspecified hypothyroidism ANIVAL (generalized anxiety disorder) Generalized anxiety disorder Schizoaffective disorder, bipolar type ([facility]) Schizoaffective disorder, unspecified condition Recurrent Clostridium difficile diarrhea- Primary Intestinal infection due to clostridium difficile Type 2 diabetes mellitus with stage 3a chronic kidney disease, with long-term current use of insulin ([facility]) Type 2 diabetes mellitus with both eyes affected by mild nonproliferative retinopathy and macular edema, with long-term current use of insulin ([facility]) Hypertensive kidney disease with stage 3a chronic kidney disease (HCC) Mood disorder ([facility]) Unspecified episodic mood disorder Type 2 diabetes mellitus with hemoglobin A1c goal of less than 8.0% ([facility])- Primary documented in this encounter Advance Directives [...] statute hierarchy) Jovita Ovalle Adult Child Health Associate Merchant resentative (appointed verbally by patient or by statute hierarchy) [email or web address] Care Teams Organizational Effectiveness Director Relationship Specialty Start Date End Date Gregory Rausch MD [address] [place] [address] PCP - General Family Medicine 02/12/20 documented as of this encounter
--- OUTSIDE RECORDS SUMMARY | 2024-10-02 03:19 | External Medical Summary | Summary of Care ---
Author Name Unknown Organization [facility] Address [address] [place] [address] Phone [phone] Care Team Providers Care Supervisor Pig Machine Name Role Phone Gregory Rausch MD Primary Care Provider [phone] Reason for Visit * Reason Onset Date Comments Information 09/25/2024 Medication Pre-auth 09/25/2024 Omnipod 5 De [id number] Pods Gen 5 - received FIMS message that pa was started in cover my meds HYATT [id number] Encounter Details Date Type Department Care Team (Late st Contact Info) Description 09/25/2024 Telephone Centralized Clinical Pharmacy Services, Cindy Da Silva [address] [place] [address] [place] [address] Pharmacist1, [facility] [address] [facility] [id number] Information; Medication Pre-auth (Omnipod ... Allergies Active [...] type 2, not at goal ([facility]) 3 every 15 minutes until glucose [...] bedtime. 60 Tablet 08/12/20 24 Active Klayesta [id number] UNIT/GM External Powder (Nystatin)Indicati ons:Candidal intertrigo APPLY TOPICALLY TO AFFECTED AREA 3 TIMES A DAY 60 g 1 08/19/20 24 Active NovoLOG FlexPen 100 UNIT/ML Subcutaneous Solution Pen-injector (insulin aspart)Indications :Type 2 diabetes mellitus with hemoglobin A1c goal of less than 7.0% ([facility]) INJECTED UNDER THE SKIN BEFORE MEALS, [...] Tablet 1 09/23/20 24 Active Omnipod 5 MybF5A3 Pods Gen 5Indications:Type 2 diabetes mellitus with hemoglobin A1c goal of less than 8.0% ([facility]) Use as directed. Change every 3 [...] eye 09/28/2020 Coronary artery disease invo lving [place] coronary artery of [place] heart without angina pectoris 12/16/2019 Assessment & [...] 12/21/2016 Diabetes mellitus 01/05/2014 12/21/2016 LEYVA RESEARCH OTHER*[id number] 01/05/2014 12/21/2016 Axillary pain 11/03/2013 12/21/2016 Obesity, [...] 09/201008/26/2011 12/21/2016 FOLLOWING SURGERY, UNSPECIFI ED ([facility] 08/25/2011) 08/26/2011 12/21/2016 ADVANCE DIRECTIVE [...] Electronic Medical Record [facility] V710 Clinical Trial*[id number] 12/22/2010 04/14/2011 S/P aortic valve replacement 12/01/2010 08/26/2011 S/P AORTIC VALVE REPLACEMENT - #25 pericardial Mc valve 11/01/2010 06/28/2018 Overview (11/02/2010): Aortic valve replacement with #25 pericardial Mc valve, model 2800TFX, serial number [id number] (Dr. 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 Did not confirm this information with the pharmacy. Pt's current insurance information is as follows: Patient name: Jovita Rose ID number: [id number] BIN number: [id number] PCN number: [id number] Group number: [id number] Subscriber name: Jovita Rose Primary or Secondary Insurance:Primary Medication: Omnipod 5 [id number] Pods Gen 5 Reason for Request: required per pharmacy via [facility] Pharmacy and phone number: [place] [id number] [address] [facility] Rx plan and phone number: leonard jimenez What alternative medications does the pharmacy have in stock?: n/a Thank you for your assistance Pinky Avelar Property Maintenance Technician II Centralized Clinical Pharmacy Services ([facility]PS) 09/25/2024,5:09 PM * Telephone Encounter - Neeraj Matthew RPh - 09/25/2024 2:29 PM EST Patient Phone Numbers Caller's name: Jovita Preferred call back number(OFFICE NUMBER FOR HH): [phone] Reason for call: Patient calling asking for the Omnipod 5 Order to be sent to [facility]. Left message for Jovita explaining her Omnipod pods will more than likely need to come from a diabetes supply [employer]. She needs to call the clinic back to discuss. If I don not hear back from her I will send RX at to [facility]. Neeraj Romero RPh, [facility] Clinical Pharmacist [facility] Therapy Management [facility] 09/25/2024, 2:31 PM * Telephone Encounter - Kori Alvarado CPhT - 09/25/2024 1:44 PM EST Caller's name: Jovita Preferred call back number(OFFICE NUMBER FOR HH): [phone] Reason for call: Patient calling asking for the Omnipod 5 Order to be sent to [facility]. Thank you, Kori Alvarado CPhT Car Wrecker II Centralized Clinical Pharmacy Services ([facility]) 09/25/2024,1:44 PM documented in this encounter Plan of Treatment Upcoming Encounters Date Type Department Care Team (Late st Contact Info) Description 09/30/2024 11:10 AM EST [facility] [place] [address] [place] [address] Pharmacist1, [facility] [address] [place] [address] 10/23/2024 9:30 AM EST Scheduled Telephone [facility], [facility] [address] [place] [address] Lakesha King, RDN [address] [place] [address] 11/03/2024 11:00 AM EST Office Visit Sleep Disorders Ctr [facility] [address] [place] [address] Christina Birch, [address] [place] [address] 11/04/2024 9:30 AM EST Office Visit Gastroenterology, [facility] [address] [place] [address] Tia Taylor CRNP [address] [place] [address] 01/26/2025 11:40 AM EDT Office Visit Nephrology, [facility] [address] [facility] [place] [address] Fidelina Baumann MD [address] [facility] [place] [address] Scheduled Procedures Name Priority Associated Diagnoses Date/Ti [...] 10/25/2021, 02/16/2021, 01/18/2021 CKD PHOS USE SMARTSET 83232 06/18/202405/26, 06/16/2023, 06/15/2023, Additional history exists HbA1c 08/01/2024 01/30/2024, 08/25, 07/31/2023, Additional history exists Diabetic Eye Exam 09/13/2024 09/13/2023, , 09/13/2023, Additional history exists B-12 09/18/2024 09/18/2023, 08/24, 2020, Additional history exists GFR 11/01/2024 05/01/2024, 12/23, 10/15/2023, Additional history exists Albumin/Creatinine Ratio 01/07/2025 024, 03/09/2023, 12/22/2022, Additional history exists CKD HGB USE SMARTSET 75799 01/07/202501/07, 01/08/2024, 10/15/2023, Additional history exists TSH [...] this encounter Medical Devices Implanted Type Area Services Tech Device Identifier Shelf Expiration Date Model / Serial / Lot Cath Roselia Single Lumen - [id number] Implanted:Qty : 1 on 03/12/2008 at OR [facility] Left: Chest [facility] *DO NOT USE* 07/25/2012 21-4053-24 / / [id number] Sut Steel 6 M654g - [id number] Implanted:Qty : 1 on 11/01/2010 at OR [facility] N/A: Chest DO NOT USE M654G / / Sut Steel 6 M654g - [id number] Implanted:Qty : 1 on 11/01/2010 at OR [facility] N/A: Chest DO NOT USE M654G / / Valve Tarsha Aortic [id number] - [id number] Implanted:Qty : 1 on 11/01/2010 at OR [facility] N/A: Heart [employer] DANIEL 05/20/2012 2800TFX-25 / / [id number] Description:[email or web address] Mesh Soft 50k33ox - [id number] Implanted:Qty : 1 on 10/10/2019 by Gigi Hendrickson MD at OR [facility] N/A: Abdomen CR BARD : DAVOL [id number] 05/21/2024 [id number] / / [id number] Lens 22.5 Sn60wf - [id number] - [id number] Implanted:Qty : 1 on 09/15/2020 by Cece Roland MD at [facility] Right: Eye IVA : SURGICAL [id number] 05/13/2025 SN60 WF.225 / [id number] / [id number] Lens 21.5 Sn60wf - [id number] - [id number] Implanted:Qty : 1 on 12/19/2023 by Ramsey Burnett DO at OR [facility] Left: Eye IVA : SURGICAL 12/03/2024 SN60WF.2 15 / [id number] / documented as of this encounter [...] valve replaced by other means Atherosclerosis of [place] coronary artery of [place] heart without angina pectoris Schizoaffective disorder, bipolar type (HCC) Schizoaffective disorder, unspecified condition LEYVA (nonalcoholic steatohepatitis) Other chronic nonalcoholic liver disease Type 2 diabetes mellitus with diabetic mononeuropathy, with long-term current use of insulin (HCC)- Primary Atherosclerosis of [place] coronary artery of [place] heart without angina pectoris Hypertensive heart and [...] of insulin (HCC) Coronary artery disease involving [place] coronary artery of [place] heart without angina pectoris HTN, goal below [...] goal of less than 8.0% ([facility])- Primary documented in this encounter Advance Directives [...] statute hierarchy) Jovita Ovalle Adult Child Health Overhead Worker resentative (appointed verbally by patient or by statute hierarchy) Care Teams Supervisor Pig Machine Relationship Specialty Start Date End Date Gregory Rausch MD [address] [place] [address] PCP - General Family Medicine 02/12/20 documented as of this encounter
--- OUTSIDE RECORDS SUMMARY | 2024-10-02 03:19 | External Medical Summary | Summary of Care ---
Author Name Unknown Organization [facility] Address [address] [place] [address] Phone [phone] Care Team Providers Care Screener Perfumer Name Role Phone Gregory Rausch MD Primary Care Provider [phone] Reason for Visit * Reason Onset Date Comments Information 09/25/2024 Medication Pre-auth 09/25/2024 Omnipod 5 De [id number] Pods Gen 5 - received FIMS message that pa was started in cover my meds HYATT [id number] Encounter Details Date Type Department Care Team (Late st Contact Info) Description 09/25/2024 Telephone Centralized Clinical Pharmacy Services, Cindy Da Silva [address] [place] [address] [place] [address] Pharmacist1, [facility] [address] [facility] [id number] Information; Medication Pre-auth (Omnipod ... Allergies Active [...] ns:DM type 2, not at goal ([facility] [...] bedtime. 60 Tablet 08/12/20 24 Active Klayesta 542614 UNIT/GM External Powder (Nystatin)Indicati ons:Candidal intertrigo APPLY TOPICALLY TO AFFECTED AREA 3 TIMES A DAY 60 g 1 08/19/20 24 Active NovoLOG FlexPen 100 UNIT/ML Subcutaneous Solution Pen-injector (insulin aspart)Indications :Type 2 diabetes mellitus with hemoglobin A1c goal of less than 7.0% ([facility]) INJECTED UNDER THE SKIN BEFORE MEALS, [...] Tablet 1 09/23/20 24 Active Omnipod 5 JpfP4W3 Pods Gen 5Indications:Type 2 diabetes mellitus with hemoglobin A1c goal of less than 8.0% ([facility]) Use as directed. Change every 3 [...] eye 09/28/2020 Coronary artery disease invo lving [place] coronary artery of [place] heart without angina pectoris 12/16/2019 Assessment & [...] 12/21/2016 Diabetes mellitus 01/05/2014 12/21/2016 LEYVA RESEARCH OTHER*[id number] 01/05/2014 12/21/2016 Axillary pain 11/03/2013 12/21/2016 Obesity, [...] Medical Record [facility] V710 Clinical Trial*[id number] 12/22/2010 04/14/2011 S/P aortic valve replacement 12/01/2010 08/26/2011 S/P AORTIC VALVE REPLACEMENT - #25 pericardial Hernandez valve 11/01/2010 06/28/2018 Overview (11/02/2010): Aortic valve replacement with #25 pericardial Hernandez valve, model 2800TFX, serial number [id number] (Dr. 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 This is a new [place] request. Upon review of this prior authorization request, I verified this request is appropriate. This is prescribed by a department for which [facility] is authorized to review prior authorizations [...] note, there is nothing currently pending in [facility] for this request. Please advise how to proceed. Thank you, Zoya Sorensen Manager Of Change Centralized Clinical Pharmacy Services 09/26/2024,12:13 PM * Telephone Encounter - Pinky Avelar PHARM Tech - 09/25/2024 5:09 PM EST Pharmacy calling to inform doctor that the patient's insurance will not pay for this medication without a completed prior authorization. Did not confirm this information with the pharmacy. Pt's current insurance information is as follows: Patient name: Jovita Rose ID number: [id number] BIN number: [id number] PCN number: NVTD Group number: [id number] Subscriber name: Jovita Rose Primary or Secondary Insurance:Primary Medication: Omnipod 5 [id number] Pods Gen 5 Reason for Request: required per pharmacy via [facility] Pharmacy and phone number: [id number] [address] [facility] Rx plan and phone number: connieroque jimenez What alternative medications does the pharmacy have in stock?: n/a Thank you for your assistance Pinky Avelar Beef Cattle Farmer II Centralized Clinical Pharmacy Services ([facility]) 09/25/2024,5:09 PM * Telephone Encounter - Neeraj Matthew RPh - 09/25/2024 2:29 PM EST Patient Phone Numbers Caller's name: Jovita Preferred call back number(OFFICE NUMBER FOR ): [phone] Reason for call: Patient calling asking for the Omnipod 5 Order to be sent to [facility]. Left message for Jovita explaining her Omnipod pods will more than likely need to come from a diabetes supply company. She needs to call the clinic back to discuss. If I don not hear back from her I will send RX at endo to [facility]. Neeraj Romero RPh, [facility] Clinical Pharmacist Medication Therapy Management Clinic 09/25/2024, 2:31 PM * Telephone Encounter - Kori Alvarado CPhT - 09/25/2024 1:44 PM EST Caller's name: Jovita Dhiraj call back number(OFFICE NUMBER FOR ): [phone] Reason for call: Patient calling asking for the Omnipod 5 Order to be sent to [facility]. Thank you, Kori Alvarado CPhT Manager Of Change II Centralized Clinical Pharmacy Services ([facility]) 09/25/2024,1:44 PM documented in this encounter Plan of Treatment Upcoming Encounters Date Type Department Care Team (Late st Contact Info) Description 09/30/2024 11:10 AM EST Office Visit Pharmacy, [facility] [address] [facility] [address] Pharmacist1, [facility] [address] [facility] [place] [address] 10/23/2024 9:30 AM EST Scheduled Telephone [facility], [facility] [address] [facility] [place] [address] Lakesha King, RDN [address] [place] [address] 11/03/2024 11:00 AM EST Office Visit Sleep Disorders Ctr [facility] [address] [place] [id number] Christina Birch, [address] [place] [address] 11/04/2024 9:30 AM EST Office Visit Gastroenterology, [facility] [address] [place] [address] Tia Taylor CRNP [address] [place] [address] 01/26/2025 11:40 AM EDT Office Visit Nephrology, [facility] [place] [address] [facility] [place] [address] Fidelina Baumann MD [address] [facility] [place] [address] Scheduled Procedures Name Priority Associated Diagnoses Date/Ti [...] 10/25/2021, 02/16/2021, 01/18/2021 CKD PHOS USE SMARTSET 33776 06/18/202405/26, 06/16/2023, 06/15/2023, Additional history exists HbA1c 08/01/2024 01/30/2024, 08/25, 07/31/2023, Additional history exists Diabetic Eye Exam 09/13/2024 09/13/2023, , 09/13/2023, Additional history exists B-12 09/18/2024 09/18/2023, 08/24, 2020, Additional history exists GFR 11/01/2024 05/01/2024, 12/23, 10/15/2023, Additional history exists Albumin/Creatinine Ratio 01/07/2025 024, 03/09/2023, 12/22/2022, Additional history exists CKD HGB USE SMARTSET 70781 01/07/202501/07, 01/08/2024, 10/15/2023, Additional history exists TSH [...] this encounter Medical Devices Implanted Type Area Retirement Sales Consultant Device Identifier Shelf Expiration Date Model / Serial / Lot Cath Roselia Single Lumen - [id number] Implanted:Qty : 1 on 03/12/2008 at [facility] Left: Chest [facility] *DO NOT USE* 07/25/2012 21-4053-24 / / [id number] Sut Steel 6 M654g - [id number] Implanted:Qty : 1 on 11/01/2010 at OR [facility] N/A: Chest DO NOT USE M654G / / Sut Steel 6 M654g - [id number] Implanted:Qty : 1 on 11/01/2010 at OR [facility] N/A: Chest DO NOT USE M654G / / Valve Tarsha Aortic [id number] - [id number] Implanted:Qty : 1 on 11/01/2010 at OR [facility] N/A: Heart [employer] DANIEL 05/20/2012 2800TFX-25 / / [id number] Description:[email or web address] Mesh Soft 73o76zd - [id number] Implanted:Qty : 1 on 10/10/2019 by Gigi Hendrickson MD at [place] [facility] N/A: Abdomen CR BARD : DAVOL [id number] 05/21/2024 [id number] / / [id number] Lens 22.5 Sn60wf - [id number] - [id number] Implanted:Qty : 1 on 09/15/2020 by Renaldo Cook, Cece Acosta MD at OR [facility] Right: Eye IVA : SURGICAL [id number] 05/13/2025 SN60 WF.225 / [id number] / [id number] Lens 21.5 Sn60wf - [id number] - [id number] Implanted:Qty : 1 on 12/19/2023 by Ramsey Burnett DO at OR [facility] Left: Eye IVA : SURGICAL 12/03/2024 SN60WF.2 15 / [id number] / documented as of this encounter [...] valve replaced by other means Atherosclerosis of [place] coronary artery of [place] heart without angina pectoris Schizoaffective disorder, bipolar type (HCC) Schizoaffective disorder, unspecified condition LEYVA (nonalcoholic steatohepatitis) Other chronic nonalcoholic liver disease Type 2 diabetes mellitus with diabetic mononeuropathy, with long-term current use of insulin (HCC)- Primary Atherosclerosis of [place] coronary artery of [place] heart without angina pectoris Hypertensive heart and [...] use of insulin ([facility]) Coronary artery disease involving [place] coronary artery of [place] heart without angina pectoris HTN, goal below 130/80 Unspecified essential hypertension Hypertensive heart and kidney disease with chronic diastolic congestive heart failure and stage 3a chronic kidney disease ([facility]) S/P TAVR (transcatheter aortic valve replacement) Heart valve replaced by other means Acquired hypothyroidism Unspecified hypothyroidism ANIVAL (generalized anxiety disorder) Generalized anxiety disorder Schizoaffective disorder, bipolar type ([facility]) Schizoaffective disorder, unspecified condition Recurrent Clostridium difficile diarrhea- Primary Intestinal infection due to clostridium difficile Type 2 diabetes mellitus with stage 3a chronic kidney disease, with long-term current use of insulin ([facility]) Type 2 diabetes mellitus with both eyes affected by mild nonproliferative retinopathy and macular edema, with long-term current use of insulin ([facility]) Hypertensive kidney disease with stage 3a chronic kidney disease ([facility]) Mood disorder ([facility]) Unspecified episodic mood disorder Type 2 diabetes mellitus with hemoglobin A1c goal of less than 8.0% ([facility])- Primary documented in this encounter Advance [...] Name Relationship Healthcare Agent Relationship Communication Gigi Brenda Harrisonjennifer Adult Child Health Care Repr esentative (appointed verbally by patient or by statute hierarchy) Jovita Yamile Adult Child Health Shell Fisherman resentative (appointed verbally by patient or by statute hierarchy) [email or web address] Care Teams Screener Perfumer Relationship Specialty Start Date End Date Gregory Rausch MD [address] [place] [address] PCP - General Family Medicine 02/12/20 documented as of this encounter
--- OUTSIDE RECORDS SUMMARY | 2024-10-02 03:20 | External Medical Summary | Summary of Care ---
Author Name Unknown Organization [facility] Address [address] [place] [address] Phone [phone] Care Team Providers Care Propeller Layout Worker Name Role Phone Gregory Rausch MD Primary Care Provider [phone] Reason for Visit * Reason Onset Date Comments FYI 06/12/2024 Encounter Details Date Type Department Care Team (Late st Contact Info) Description 06/12/2024 Telephone Family Practice [facility] [address] [place] [place] [address] Gregory Rausch MD [address] [place] [address] FYI Allergies Active Allergy Reactions Criticality Noted Date Comments Adhesive Tape 07/02/2017 Can tolerate band-aids Glycerin Other (Please comment) 03/12/2008 Topical agents with glycein-burning & itching Lactose 12/09/2014 Dairy - gas Lisinopril Cough 01/21/2010 Monosodium Glutamate Edema Other 03/12/2008 Hands and feet Penicillins Rash 11/14/2007 documented as of this encounter (statuses as of 09/11/2024) Medications aspirin enteric coated 81 MG TBECIndications :Aortic valve disorder Take 1 Tab by mouth daily. 90 Tab 11 9 Active AZO Cranberry 250-30 MG Oral Tablet Take 1 Tablet by mouth in the morning and 1 Tablet before bedtime. Active BD Glucose 5 GM Oral Tablet Chewable (Glucose)Indica tions:DM type 2, not at goal ([facility] [...] 3 2 Active Melatonin 10 MG Oral CapsuleIndicati ons:sleep Take 1 Capsule by mouth at bedtime. [...] Shannon ER 10 MEQ Oral Tablet Extended ReleaseIndicati ons:Acute on chronic heart failure with preserved ejection fraction (HFpEF) ([facility]) Take 1 Tablet by mouth in the morning and 1 Tablet before bedtime. 180 Tablet 3 4 Active BD Pen Needle Short U/F 31G X 8 MMIndications:T ype 2 diabetes mellitus with hemoglobin A1c [...] as needed 200 Each 5 4 Active Aquaphor External Ointment Apply topically to affected area as needed for Dry Skin. Apply to face 420 g 4 Active Ammonium Lactate 12 % External Lotion (Lac-Hydrin) Apply to both feet once daily. 400 g 2 4 Active Insulin Aspart 100 UNIT/ML Injection Solution (NovoLOG)Indica tions:Type 2 diabetes mellitus with hemoglobin A1c goal of less than 7.0% ([facility]) Use up to 50 units per day in Omnipod. 4 Active Loperamide HCl 2 MG Oral Capsule (Imodium A-D) Take 1 Capsule by mouth 4 times a day as needed for Diarrhea. Active Saccharomyces boulardii 250 MG Oral Capsule (Florastor) Take 1 Capsule by mouth in the morning and 1 Capsule before bedtime. 60 Capsule 4 Active DULoxetine HCl 20 MG Oral Capsule Delayed Release Particles (Cymbalta) Take 1 Capsule by mouth in the morning. 30 Capsule 1 4 Active documented as of this encounter (statuses as of 09/11/2024) Active Problems Problem Noted Date Diagnosed Date [...] of quinault heart without angina pectoris 12/16/2019 Assessment & [...] as of this encounter (statuses as of 09/11/2024) Resolved Problems Problem Noted Date Diagnosed Date [...] 12/21/2016 Diabetes mellitus 01/05/2014 12/21/2016 LEYVA RESEARCH OTHER*[id number] 01/05/2014 12/21/2016 Axillary pain 11/03/2013 12/21/2016 Obesity, [...] cath 09/201008/26/2011 12/21/2016 FOLLOWING SURGERY, UNSPECIFI ED ([facility] 08/25/2011) 08/26/2011 12/21/2016 ADVANCE [...] Record [facility] V710 Clinical Trial*[id number] 12/22/2010 04/14/2011 S/P aortic valve replacement 12/01/2010 08/26/2011 S/P AORTIC VALVE REPLACEMENT - #25 pericardial Mc valve 11/01/2010 06/28/2018 Overview (11/02/2010): Aortic valve replacement with #25 pericardial Mc valve, model 2800TFX, serial number [id number] (Dr. Walker) [facility] V710 Clinical Trial*[id number] 10/18/2010 11/21/2010 Type 2 diabetes mellitus wit [...] as of this encounter (statuses as of 09/11/2024) Immunizations Name Administration Dates Next Due COVID-19 mRNA, LNP-s, No Pre serve, 2-Dose Series (Moderna) 10/25/2021,02/16/2021,01/18/2021 HEP A - Hepatitis A (Adult > 18 yrs) 06/07/2018, 12/05/2017 Hepatitis B, 20+ yrs 06/07/2018,01/08/20 18,12/05/2017,06/15,10/27/2013,09/12/2013 PPD 10/26/2019,10/17/2019 Pneumococcal Conjugate Vacci ne, 20-valent ([id number]) 06/22/2023 Pneumococcal Polysaccharide PPV23 (Pneumovax) 01/02/2008 Seasonal Influenza Vac., MDV , IM, 0.5 mL (Fluzone) 11/26/2016,06/15/2014,09/12/2013,09/30,07/17/2011,08/17/2010,09/21/2009 ,07/18/2008 Seasonal Influenza, PF, 6 M & above, [...] Industry 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 documented in this encounter Plan of Treatment Upcoming Encounters Date Type Department Care Team (Late st Contact Info) Description 09/30/2024 11:10 AM EST Office Visit Pharmacy, [facility] [place] [address] [place] [address] Pharmacist1, [facility] [address] [place] [address] 10/23/2024 9:30 AM EST Scheduled Telephone [facility], [facility] [address] [place] [address] Lakesha King, RDN [address] [place] [address] 11/03/2024 11:00 AM EST Office Visit [facility] Disorders Ctr [facility] [address] [place] [address] Christina Birch, [address] [place] [address] 11/04/2024 9:30 AM EST Office Visit Gastroenterology, [facility] [address] [facility] [place] [address] Tia Taylor CRNP [address] [place] [address] 01/26/2025 11:40 AM EDT Office Visit Nephrology, [facility] [address] [facility] [place] [address] Fidelina Baumann MD [address] [facility] [place] [address] Scheduled Procedures Name Priority Associated Diagnoses Date/Ti [...] 10/25/2021, 02/16/2021, 01/18/2021 CKD PHOS USE SMARTSET 59810 06/18/202405/26, 06/16/2023, 06/15/2023, Additional history exists HbA1c 08/01/2024 01/30/2024, 08/25, 07/31/2023, Additional history exists Diabetic Eye Exam 09/13/2024 09/13/2023, , 09/13/2023, Additional history exists B-12 09/18/2024 09/18/2023, 08/24, 2020, Additional history exists GFR 11/01/2024 05/01/2024, 12/23, 10/15/2023, Additional history exists Albumin/Creatinine Ratio 01/07/2025 024, 03/09/2023, 12/22/2022, Additional history exists CKD HGB USE SMARTSET 46088 01/07/202501/07, 01/08/2024, 10/15/2023, Additional history exists TSH [...] Pneumococcal Vaccine: 65+ Years Completed 06/22/2023, 01/02/2008 Influenza Vaccine (FLU shot) Completed , 06/22/2023, 06/29/2022, Additional history exists HPV (Gardasil) Vaccine Aged Out No lo nger eligible based on patient's age to complete this topic MENINGOCOCCAL (MENACTRA/MENVEO) Aged Out No longer eligible based on patient's age to complete this topic documented as of this encounter Medical Devices Implanted Type Area Hot Tamale Worker Device Identifier Shelf Expiration Date Model / Serial / Lot Cath Roselia Single Lumen - [id number] Implanted:Qty : 1 on 03/12/2008 at OR [facility] Left: Chest [employer] *DO NOT USE* 07/25/2012 21-4053-24 / / [id number] Sut Steel 6 M654g - [id number] Implanted:Qty : 1 on 11/01/2010 at OR [facility] N/A: Chest DO NOT USE M654G / / Sut Steel 6 M654g - [id number] Implanted:Qty : 1 on 11/01/2010 at OR [facility] N/A: Chest DO NOT USE M654G / / Valve Tarsha Aortic [id number] - [id number] Implanted:Qty : 1 on 11/01/2010 at OR [facility] N/A: Heart [employer] 05/20/2012 2800TFX-25 / / [id number] Description:[email or web address] Mesh Soft 22m48pt - [id number] Implanted:Qty : 1 on 10/10/2019 by Gigi Hendrickson MD at [place] [facility] N/A: Abdomen CR BARD : DAVOL [id number] 05/21/2024 [id number] / / [id number] Lens 22.5 Sn60wf - [id number] - [id number] Implanted:Qty : 1 on 09/15/2020 by Cece Roland MD at OR [facility] Right: Eye IVA : SURGICAL [id number] 05/13/2025 SN60 WF.225 / [id number] / [id number] Lens 21.5 Sn60wf - [id number] - [id number] Implanted:Qty : 1 on 12/19/2023 by Ramsey Burnett DO at OR [facility] [address] Left: Eye IVA : SURGICAL 12/03/2024 SN60WF.2 15 / [id number] / documented as of this encounter [...] statute hierarchy) Jovita Ovalle Adult Child Health Cutting Table Operator First resentative (appointed verbally by patient or by statute hierarchy) [email or web address] Care Teams Propeller Layout Worker Relationship Specialty Start Date End Date Gregory Rausch MD [address] [place] [address] PCP - General Family Medicine 02/12/20 documented as of this encounter
--- OUTSIDE RECORDS SUMMARY | 2024-10-02 03:20 | External Medical Summary | Summary of Care ---
Author Name Unknown Organization [facility] Address [address] [place] [address] Phone [phone] Care Team Providers Care Rn Radiation Oncology Name Role Phone Gregory Rausch MD Primary Care Provider [phone] Reason for Visit * Reason Onset Date Comments Home Health 06/25/2024 Encounter Details Date Type Department Care Team (Late st Contact Info) Description 06/25/2024 Telephone Family Practice [facility] [address] [place] [address] Gregory Rausch MD [address] [place] [address] Home Health Allergies Active Allergy Reactions Criticality Noted Date Comments Adhesive Tape 07/02/2017 Can tolerate band-aids Glycerin Other (Please comment) 03/12/2008 Topical agents with glycein-burning & itching Lactose 12/09/2014 Dairy - gas Lisinopril Cough 01/21/2010 Monosodium Glutamate Edema Other 03/12/2008 Hands and feet Penicillins Rash 11/14/2007 documented as of this encounter (statuses as of 09/24/2024) Medications aspirin enteric coated 81 MG TBECIndications: Aortic valve disorder Take 1 Tab by mouth daily. 90 Tab 11 9 Active AZO Cranberry 250-30 MG Oral Tablet Take 1 Tablet by mouth in the morning and 1 Tablet before bedtime. Active BD Glucose 5 GM Oral Tablet Chewable (Glucose)Indicat ions:DM type 2, not at goal ([facility]) 3 every 15 minutes until glucose is > 100 mg/dL for hypoglycemia E11.9 100 Tab 3 1 Active OneTouch Verio w/Device Kit Use up to 4 times a day E11.9 1 Kit 2 Active OneTouch Delica Lancets 33G TEST 4 TIMES DAILY DIRECTED, E11.9 400 Each 3 2 Active Melatonin 10 MG Oral CapsuleIndicatio ns:sleep Take 1 Capsule by mouth at bedtime. [...] Shannon ER 10 MEQ Oral Tablet Extended ReleaseIndicatio ns:Acute on chronic heart failure with preserved ejection fraction (HFpEF) ([facility]) Take 1 Tablet by mouth in the morning and 1 Tablet before bedtime. 180 Tablet 3 4 Active BD Pen Needle Short U/F 31G X 8 MMIndications:Ty pe 2 diabetes mellitus with hemoglobin A1c [...] Active Insulin Aspart 100 UNIT/ML Injection Solution (NovoLOG)Indicat ions:Type 2 diabetes mellitus with hemoglobin A1c [...] the morning. 30 Capsule 1 4 Active Gabapentin 300 MG Oral Capsule (Neurontin) Take 1 Capsule by mouth in the morning and 1 Capsule at noon and 1 Capsule before bedtime. 90 Capsule 2 4 Active Meclizine HCl 25 MG Oral Tablet (Antivert)Indica tions:Muscle tension headache Take 2 Tablets by mouth 2 times a day. 360 Tablet 4 Active Ozempic (2 MG/DOSE) 8 MG/3ML Subcutaneous Solution Pen-injector (Semaglutide (2 MG/DOSE))Indicat ions:weekly on fridays Inject 2 mg under the skin once a week. 9 mL 1 4 Active Additional Information Patient taking differently:2 mg Subcutaneous QWEEK,Tuesdays, Indications: weekly on fridays, Reported on 08/12/2024 Fluticasone Propionate 50 MCG/ACT Nasal Suspension (Flonase)Indicat ions:Dizziness Administer 2 Sprays into each nostril in the morning. 16 g 3 4 Active Tresiba FlexTouch 200 UNIT/ML Subcutaneous Solution Pen-injector (Insulin Degludec)Indicat ions:Type 2 diabetes mellitus with hemoglobin A1c goal of less than 7.0% ([facility]),Type 2 diabetes mellitus with stage 3a chronic kidney disease, with long-term current use of insulin (HCC) Inject 36 Units under the skin in the morning. 18 mL 3 4 Active Metoprolol Tartrate 50 MG Oral Tablet (Lopressor)Indic ations:HTN, goal below 130/80 TAKE 1 TABLET BY MOUTH IN THE MORNING AND BEFORE BEDTIME 180 Tablet 3 4 Active Magnesium Oxide -Mg Supplement 400 (240 Mg) MG Oral Tablet (Mag-Ox)Indicati ons:HTN, goal below 130/80,Chronic heart failure with preserved ejection fraction (HCC),Palpitatio ns,Hypomagnesemi a One tablet by mouth daily in the morning 90 Tablet 3 4 Active documented as of this encounter (statuses as of 09/24/2024) Active Problems Problem Noted Date Diagnosed Date [...] eye 09/28/2020 Coronary artery disease invo lving kalisp[place] coronary artery of [place] heart without angina pectoris 12/16/2019 Assessment & [...] as of this encounter (statuses as of 09/24/2024) Resolved Problems Problem Noted Date Diagnosed Date [...] failure and stage 3a chronic kidney disease 03/09/20222 02/2023 Assessment & Plan (03/16/2023 4:03 PM EDT): [...] 12/21/2016 Diabetes mellitus 01/05/2014 12/21/2016 LEYVA RESEARCH OTHER*[id number] 01/05/2014 12/21/2016 Axillary pain 11/03/2013 12/21/2016 Obesity, [...] cath 09/201008/26/2011 12/21/2016 FOLLOWING SURGERY, UNSPECIFI ED ([facility] 08/25/2011) 08/26/2011 12/21/2016 ADVANCE DIRECTIVE INFORMATION 04/17/2011 [...] Medical Record [facility] V710 Clinical Trial*[id number] 12/22/2010 04/14/2011 S/P aortic valve replacement 12/01/2010 08/26/2011 S/P AORTIC VALVE REPLACEMENT - #25 pericardial Mc valve 11/01/2010 06/28/2018 Overview (11/02/2010): Aortic valve replacement with #25 pericardial Mc valve, model 2800TFX, serial number [id number] (Dr. Walker) [facility] V710 Clinical Trial*[id number] 10/18/2010 11/21/2010 Type 2 diabetes mellitus wit [...] as of this encounter (statuses as of 09/24/2024) Immunizations Name Administration Dates Next Due COVID-19 mRNA, LNP-s, No Pre serve, 2-Dose Series (Moderna) 10/25/2021,02/16/2021,01/18/2021 HEP A - Hepatitis A (Adult > 18 yrs) 06/07/2018, 12/05/2017 Hepatitis B, 20+ yrs 06/07/2018,01/08/20 18,12/05/2017,06/15,10/27/2013,09/12/2013 PPD 10/26/2019,10/17/2019 Pneumococcal Conjugate Vacci ne, 20-valent ([id number]) 06/22/2023 Pneumococcal Polysaccharide PPV23 (Pneumovax) 01/02/2008 Seasonal [...] 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 She stated that patient's BS has been through the roof for awhile now. She spoke with caregiver today, patient hasn't been taking care of herself or not taking her medications. She had boxes of Ozempic in the fridge that was filled at the pharmacy on 04/21, She has only gave herself the injections 3 times since 04/21, today included as Kathya made her give herself an injection while she was there. Patient is very non-compliant, does not following diabetic diet. She does not think that an insulin pump would be good option for her either as she does not think that she would count her carbs. Patient was seen in office yesterday by Dr. Frias for Er follow up. getbetter! documented in this encounter Plan of Treatment Upcoming Encounters Date Type Department Care Team (Late st Contact Info) Description 09/30/2024 11:10 AM EST Office Visit Pharmacy, [facility] [address] [facility] [place] [address] Pharmacist1, [facility] [address] [place] [address] 10/23/2024 9:30 AM EST Scheduled Telephone [facility], [facility] [address] [facility] [place] [address] Lakesha King RDN [address] [place] [address] 11/03/2024 11:00 AM EST Office Visit [facility] [address] [facility] [place] [id number] Christina Birch, [address] [place] [address] 11/04/2024 9:30 AM EST Office Visit Gastroenterology, [facility] [address] [place] [address] Tia Taylor CRNP [address] [place] [address] 01/26/2025 11:40 AM EDT Office Visit Nephrology, [facility] [address] [facility] [place] [facility] [place] [address] Fidelina Baumann MD [address] [facility] [place] [address] Scheduled Procedures Name Priority Associated Diagnoses Date/Ti [...] 10/25/2021, 02/16/2021, 01/18/2021 CKD PHOS USE SMARTSET 93582 06/18/202405/26, 06/16/2023, 06/15/2023, Additional history exists HbA1c 08/01/2024 01/30/2024, 08/25, 07/31/2023, Additional history exists Diabetic Eye Exam 09/13/2024 09/13/2023, , 09/13/2023, Additional history exists B-12 09/18/2024 09/18/2023, 08/24, 2020, Additional history exists GFR 11/01/2024 05/01/2024, 12/23, 10/15/2023, Additional history exists Albumin/Creatinine Ratio 01/07/2025 024, 03/09/2023, 12/22/2022, Additional history exists CKD HGB USE SMARTSET 98819 01/07/202501/07, 01/08/2024, 10/15/2023, Additional history exists TSH [...] this encounter Medical Devices Implanted Type Area Knitting Supervisor Device Identifier Shelf Expiration Date Model / Serial / Lot Cath Roselia Single Lumen - [id number] Implanted:Qty : 1 on 03/12/2008 at OR [facility] Left: Chest [facility] *DO NOT USE* 07/25/2012 21-4053-24 / / [id number] Sut Steel 6 M654g - [id number] Implanted:Qty : 1 on 11/01/2010 at OR [facility] N/A: Chest DO NOT USE M654G / / Sut Steel 6 M654g - [id number] Implanted:Qty : 1 on 11/01/2010 at OR [facility] N/A: Chest DO NOT USE M654G / / Valve Tarsha Aortic [id number] - [id number] Implanted:Qty : 1 on 11/01/2010 at OR [facility] N/A: Heart [employer] 05/20/2012 2800TFX-25 / / [id number] Description:[email or web address] Mesh Soft 72i96ys - [id number] Implanted:Qty : 1 on 10/10/2019 by Gigi Hendrickson MD [place] [facility] [place]/A: Abdomen CR BARD : DAVOL [id number] 05/21/2024 [id number] / / [id number] Lens 22.5 Sn60wf - [id number] - [id number] Implanted:Qty : 1 on 09/15/2020 by Cece Roland MD at OR [facility] Right: Eye IVA : SURGICAL [id number] 05/13/2025 SN60 WF.225 / [id number] / [id number] Lens 21.5 Sn60wf - [id number] - [id number] Implanted:Qty : 1 on 12/19/2023 by Ramsey Burnett DO at OR [facility] Left: Eye IVA : SURGICAL 12/03/2024 SN60WF.2 15 / [id number] / documented as of this encounter [...] patient or by statute hierarchy) Jovita Yamile [facility] Child Health Bottom Steep Tender resentative (appointed verbally by patient or by statute hierarchy) Care Teams Rn Radiation Oncology Relationship Specialty Start Date End Date Gregory Rausch MD [address] [place] [address] PCP - General Family Medicine 02/12/20 documented as of this encounter
--- OUTSIDE RECORDS SUMMARY | 2024-10-02 03:20 | External Medical Summary | Summary of Care ---
Author Name Unknown Organization [facility] Address [address] [place] [address] Phone [phone] Care Team Providers Care Manager Of It Name Role Phone Deon Rausch MD Primary Care Provider [phone] Reason for Visit * Reason Comments eRx-Medication Refill Encounter Details Date Type Department Care Team (Late st Contact Info) Description 09/22/2024 Refill Family Practice [facility] [address] [place] [address] Deon Rausch MD [address] [place], [place] [id number] Heart failure, systolic, due to idiopathic cardiomyopathy (HCC); S/P AORTIC VALVE REPLACEMENT - #25 pericardial Mc valve; HTN, goal below 140/80; Dyslipidemia, goal LDL below 70; Hypothyroidism Allergies Active Allergy Reactions Criticality Noted Date Comments Adhesive Tape 07/02/2017 Can tolerate band-aids Glycerin Other (Please comment) 03/12/2008 Topical agents with glycein-burning & itching Lactose 12/09/2014 Dairy - gas Lisinopril Cough 01/21/2010 Monosodium Glutamate Edema Other 03/12/2008 Hands and feet Penicillins Rash 11/14/2007 documented as of this encounter (statuses as of 09/23/2024) Medications aspirin enteric coated 81 MG TBECIndications:A ortic valve disorder Take 1 Tab by mouth daily. 90 Tab 11 019 Active AZO Cranberry 250-30 MG Oral Tablet Take 1 Tablet by mouth in the morning and 1 Tablet before bedtime. Active BD Glucose 5 GM Oral Tablet Chewable (Glucose)Indicati ons:DM type 2, not at goal ([facility]) 3 every 15 minutes until glucose is > 100 mg/dL for hypoglycemia E11.9 100 Tab 3 021 Active OneTouch Verio w/Device Kit Use up to 4 times a day E11.9 1 Kit 022 Active AcsendoTouch Delica Lancets 33G TEST 4 TIMES DAILY DIRECTED, E11.9 400 Each 3 022 Active Melatonin 10 MG Oral CapsuleIndication s:sleep Take 1 Capsule by mouth at bedtime. [...] times a day E11.9 100 Strip 11 024 Active Potassium Chloride Shannon ER 10 MEQ Oral Tablet Extended ReleaseIndication s:Acute on chronic heart failure with preserved ejection fraction (HFpEF) ([facility]) Take 1 Tablet by mouth in the morning and 1 Tablet before bedtime. 180 Tablet 3 Active BD Pen Needle Short U/F 31G X 8 MMIndications:Typ e 2 diabetes mellitus with hemoglobin A1c goal of less than 7.0% ([facility]),Type 2 diabetes mellitus with stage 3a chronic kidney disease, with long-term current use of insulin ([facility]) Use with insulin 4 times daily 400 Each 3 024 Active BD Insulin Syringe 25G X 1" 1 ML (Insulin Syringe-Needle U-100) Use daily with omnipod as directed DX E11.9 100 Each 5 Active Curity Alcohol Swabs Pad Use as directed as needed 200 Each Active Aquaphor External Ointment Apply topically to affected area as needed for Dry Skin. Apply to face 420 g Active Ammonium Lactate 12 % External Lotion (Lac-Hydrin) Apply to both feet once daily. 400 g 2 024 Active Insulin Aspart 100 UNIT/ML Injection Solution (NovoLOG)Indicati ons:Type 2 diabetes mellitus with hemoglobin A1c goal of less than 7.0% ([facility]) Use up to 50 units per day in Omnipod. Active Loperamide HCl 2 MG Oral Capsule (Imodium A-D) Take 1 Capsule by mouth 4 times a day as needed for Diarrhea. Active Saccharomyces boulardii 250 MG Oral Capsule (Florastor) Take 1 Capsule by mouth in the morning and 1 Capsule before bedtime. 60 Capsule 024 Active DULoxetine HCl 20 MG Oral Capsule Delayed Release Particles (Cymbalta) Take 1 Capsule by mouth in the morning. 30 Capsule 1 Active Gabapentin 300 MG Oral Capsule (Neurontin) Take 1 Capsule by mouth in the morning and 1 Capsule at noon and 1 Capsule before bedtime. 90 Capsule 2 Active Meclizine HCl 25 MG Oral Tablet (Antivert)Indicat ions:Muscle tension headache Take 2 Tablets by mouth 2 times a day. 360 Tablet Active Ozempic (2 MG/DOSE) 8 MG/3ML Subcutaneous Solution Pen-injector (Semaglutide (2 MG/DOSE))Indicati ons:weekly on fridays Inject 2 mg under the skin once a week. 9 mL 1 Active Additional Information Patient taking differently:2 mg Subcutaneous QWEEK,Tuesdays, Indications: weekly on fridays, Reported on 08/12/2024 Fluticasone Propionate 50 MCG/ACT Nasal Suspension (Flonase)Indicati ons:Dizziness Administer 2 Sprays into each nostril in the morning. 16 g 3 024 Active Tresiba FlexTouch 200 UNIT/ML Subcutaneous Solution Pen-injector (Insulin Degludec)Indicati ons:Type 2 diabetes mellitus with hemoglobin A1c goal of less than 7.0% (HCC),Type 2 diabetes mellitus with stage 3a chronic kidney disease, with long-term current use of insulin ([facility]) Inject 36 Units under the skin in the morning. 18 mL 3 024 Active Metoprolol Tartrate 50 MG Oral Tablet (Lopressor)Indica tions:HTN, goal below 130/80 TAKE 1 TABLET BY MOUTH IN THE MORNING AND BEFORE BEDTIME 180 Tablet 3 024 Active Klor-Con M20 20 MEQ Oral Tablet Extended Release (Potassium Chloride ER) TAKE 1 TABLET BY MOUTH EVERY DAY IN THE MORNING 90 Tablet 3 024 Active Magnesium Oxide -Mg Supplement 400 (240 Mg) MG Oral Tablet (Mag-Ox)Indicatio ns:HTN, goal below 130/80,Chronic heart failure with preserved ejection fraction (HCC),Palpitation s,Hypomagnesemia One tablet by mouth daily in the morning 90 Tablet 3 024 Active Dificid 200 MG Oral Tablet (Fidaxomicin)Colleen cations:Chronic diarrhea Take 1 Tablet by mouth in the morning and 1 Tablet before bedtime. 60 Tablet 024 Active Klayesta 341971 UNIT/GM External Powder (Nystatin)Indicat ions:Candidal intertrigo APPLY TOPICALLY TO AFFECTED AREA 3 TIMES A DAY 60 g 1 024 Active NovoLOG FlexPen 100 UNIT/ML Subcutaneous Solution Pen-injector (insulin aspart)Indication s:Type 2 diabetes mellitus with hemoglobin A1c goal of less than 7.0% ([facility]) INJECTED UNDER THE SKIN BEFORE MEALS, 3 TIMES PER DAY: 2 UNITS PER 50 WHEN GLUCOSE IS OVER 200 UNITS. TDD: 50. ICD10: E11.9. 45 mL 1 024 Active Atorvastatin Calcium 40 MG Oral Tablet (Lipitor)Indicati ons:Heart failure, systolic, due to idiopathic cardiomyopathy (HCC),S/P aortic valve replacement,HTN, goal below 140/80,Dyslipidem ia, goal LDL below 70 Take 1 tablet by mouth daily to prevent heart attack/stroke, protect kidney, and cholesterol 90 Tablet 024 Active Clopidogrel Bisulfate 75 MG Oral Tablet (pLAVix) Take 1 Tablet by mouth in the morning. 90 Tablet 1 12/26/2 024 Active Butalbital-Aspiri n-Caffeine 50-325-40 MG Oral Capsule (Fiorinal)Indicat ions:Acute intractable tension-type headache Take 1 Capsule by mouth every 4 hours as needed for Headache. 30 Capsule Active Levothyroxine Sodium 75 MCG Oral Tablet (Levoxyl)Indicati ons:Hypothyroidis m TAKE 1 TAB BY MOUTH EVERY MORNING ON AN EMPTY STOMACH AT LEAST 30 MINS BEFORE BREAKFAST/OTHER MEDS 90 Tablet 1 Active Levothyroxine Sodium 75 MCG Oral Tablet (Levoxyl)Indicati ons:Hypothyroidis m TAKE 1 TAB BY MOUTH DAILY FIRST THING IN AM, AT LEAST 30 MIN PRIOR TO BREAKFAST OR OTHER MEDICATIONS 90 Tablet 024 2023 Discontinued documented as of this encounter (statuses as of 09/23/2024) Active Problems Problem Noted Date Diagnosed Date [...] eye 09/28/2020 Coronary artery disease invo lving [place] coronary artery of [place] heart without angina pectoris 12/16/2019 Assessment & [...] as of this encounter (statuses as of 09/23/2024) Resolved Problems Problem Noted Date Diagnosed Date [...] 12/21/2016 Diabetes mellitus 01/05/2014 12/21/2016 LEYVA RESEARCH OTHER*[id number] 01/05/2014 12/21/2016 Axillary pain 11/03/2013 12/21/2016 Obesity, [...] cath 09/201008/26/2011 12/21/2016 FOLLOWING SURG[facility], [facility]) 08/26/2011 12/21/2016 ADVANCE DIRECTIVE INFORMATION [...] Medical Record [facility] V710 Clinical Trial*[id number] 12/22/2010 04/14/2011 S/P aortic valve replacement 12/01/2010 08/26/2011 S/P AORTIC VALVE REPLACEMENT - #25 pericardial Mc valve 11/01/2010 06/28/2018 Overview (11/02/2010): Aortic valve replacement with #25 pericardial Mc valve, model 2800TFX, serial number [id number] (Dr. Walker) [facility] V710 Clinical Trial*[id number] 10/18/2010 11/21/2010 Type 2 diabetes mellitus wit [...] as of this encounter (statuses as of 09/23/2024) Immunizations Name Administration Dates Next Due COVID-19 mRNA, LNP-s, No Pre serve, 2-Dose Series (Moderna) 10/25/2021,02/16/2021,01/18/2021 HEP A - Hepatitis A (Adult > 18 yrs) 06/07/2018, 12/05/2017 Hepatitis B, 20+ yrs 06/07/2018,01/08/20 18,12/05/2017,06/15,10/27/2013,09/12/2013 PPD 10/26/2019,10/17/2019 Pneumococcal Conjugate Vacci ne, 20-valent ([id number]) 06/22/2023 Pneumococcal Polysaccharide PPV23 (Pneumovax) 01/02/2008 Seasonal [...] 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 [employer] 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 file Not on 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 Not on file Not on [...] encounter Miscellaneous Notes * Telephone Encounter - Stevie Rodriguez, [facility] - 09/23/2024 3:00 PM EST Signed Prescriptions: Disp Refills Levothyroxine Sodium 75 MCG Oral Tablet (L*90 Tab*1 Sig: TAKE 1 TAB BY MOUTH EVERY MORNING ON AN EMPTY STOMACH AT LEAST 30 MINS BEFORE BREAKFAST/OTHER MEDSAuthorizing Provider: DEON RAUSCH User: STEVIE RODRIGUEZ Prescriptions: Disp Refills Atorvastatin Calcium 40 MG Oral Tablet (Li*90 Tab*0 Sig: TAKE 1 TABLET BY MOUTH EVERY DAYRefused By: STEVIE RODRIGUEZ for Refusal: Too soon documented in this encounter Plan of Treatment Upcoming Encounters Date Type Department Care Team (Late st Contact Info) Description 09/30/2024 11:10 AM EST Office Visit Pharmacy, [employer] [address] [facility] [place] [address] Pharmacist1, [facility] [address] [facility] [place] [address] 10/23/2024 9:30 AM EST Scheduled Telephone [facility], [facility] [address] [facility] [place] [address] Lakesha King, RDN [address] [facility] [place] [address] 11/03/2024 11:00 AM EST Office Visit Sleep Disorders Ctr [facility] [address] [place] [phone] Christina Birch DO [address] [place] [address] 11/04/2024 9:30 AM EST Office Visit Gastroenterology, [facility] [address] [place] [address] Tia Taylor CRNP [address] [place] [address] 01/26/2025 11:40 AM EDT [facility] [address] [place] [address] Fidelina Baumann MD [address] [facility] [place] [address] Scheduled Procedures Name Priority Associated Diagnoses Date/Ti [...] 10/25/2021, 02/16/2021, 01/18/2021 CKD PHOS USE SMARTSET 30553 06/18/202405/26, 06/16/2023, 06/15/2023, Additional history exists HbA1c 08/01/2024 01/30/2024, 08/25, 07/31/2023, Additional history exists Diabetic Eye Exam 09/13/2024 09/13/2023, , 09/13/2023, Additional history exists B-12 09/18/2024 09/18/2023, 08/24, 2020, Additional history exists GFR 11/01/2024 05/01/2024, 12/23, 10/15/2023, Additional history exists Albumin/Creatinine Ratio 01/07/2025 024, 03/09/2023, 12/22/2022, Additional history exists CKD HGB USE SMARTSET 89045 01/07/202501/07, 01/08/2024, 10/15/2023, Additional history exists TSH [...] encounter Medical Devices Implanted Type Area Fish Technologist Device Identifier Shelf Expiration Date Model / Serial / Lot Cath Roselia Single Lumen - [id number] Implanted:Qty : 1 on 03/12/2008 at OR [facility] Left: Chest [facility] *DO NOT USE* 07/25/2012 21-4053-24 / / [id number] Sut Steel 6 M654g - [id number] Implanted:Qty : 1 on 11/01/2010 at OR [facility] N/A: Chest DO NOT USE M654G / / Sut Steel 6 M654g - [id number] Implanted:Qty : 1 on 11/01/2010 at OR [facility] N/A: Chest DO NOT USE M654G / / Valve Tarsha Aortic [id number] - [id number] Implanted:Qty : 1 on 11/01/2010 at OR [facility] N/A: Heart [employer] 05/20/2012 2800TFX-25 / / [id number] Description:[email or web address] Mesh Soft 90v52lu - [id number] Implanted:Qty : 1 on 10/10/2019 by Gigi Hendrickson MD at [place] [facility] N/A: Abdomen CR BARD : DAVOL [id number] 05/21/2024 [id number] / / [id number] Lens 22.5 Sn60wf - [id number] - [id number] Implanted:Qty : 1 on 09/15/2020 by Renaldo Cook, Cece Acosta MD at OR [facility] Right: Eye IVA : SURGICAL [id number] 05/13/2025 SN60 WF.225 / [id number] / [id number] Lens 21.5 Sn60wf - [id number] - [id number] Implanted:Qty : 1 on 12/19/2023 by Ramsey Burnett DO at [facility] Left: Eye IVA : SURGICAL 12/03/2024 SN60WF.2 15 / [id number] / documented as of this encounter [...] valve replaced by other means Atherosclerosis of [place] coronary artery of [place] heart without angina pectoris Schizoaffective disorder, bipolar type (HCC) Schizoaffective disorder, unspecified condition LEYVA (nonalcoholic steatohepatitis) Other chronic nonalcoholic liver disease Type 2 diabetes mellitus with diabetic mononeuropathy, with long-term current use of insulin (HCC)- Primary Atherosclerosis of [place] coronary artery of [place] heart without angina pectoris Hypertensive heart and [...] of insulin (HCC) Coronary artery disease involving [place] coronary artery of [place] heart without angina pectoris HTN, goal below [...] Mood disorder (HCC) Unspecified episodic mood disorder Heart failure, systolic, due to idiopathic cardiomyopathy (HCC) Unspecified systolic heart failure S/P AORTIC VALVE REPLACEMENT - #25 pericardial Mc valve Heart valve replaced by other means HTN, goal below 140/80 Unspecified essential hypertension Dyslipidemia, goal LDL below 70 Other and unspecified hyperlipidemia Hypothyroidism Unspecified hypothyroidism documented in this encounter Advance Directives * [...] statute hierarchy) Jovita Ovalle Adult Child Health Entry Level Recruiter resentative (appointed verbally by patient or by statute hierarchy) Care Teams Manager Of It Relationship Specialty Start Date End Date Deon Rausch MD [address] [place] [address] PCP - General Family Medicine 02/12/20 documented as of this encounter
--- OUTSIDE RECORDS SUMMARY | 2024-10-02 03:20 | External Medical Summary | Summary of Care ---
Author Name Unknown Organization [facility] Address [address] [place] [address] Phone [phone] Care Team Providers Care Outside Sales Advertising Executive Name Role Phone Gregory Rausch MD Primary Care Provider [phone] Reason for Visit * Reason Onset Date Comments Advice 06/20/2024 Pharmacy change Encounter Details Date Type Department Care Team (Late st Contact Info) Description 06/20/2024 Telephone Family Practice [facility] [address] [place] [address] Gregory Rausch MD [address] [place] [address] Advice (Pharmacy change) Allergies Active Allergy Reactions Criticality Noted Date Comments Adhesive Tape 07/02/2017 Can tolerate band-aids Glycerin Other (Please comment) 03/12/2008 Topical agents with glycein-burning & itching Lactose 12/09/2014 Dairy - gas Lisinopril Cough 01/21/2010 Monosodium Glutamate Edema Other 03/12/2008 Hands and feet Penicillins Rash 11/14/2007 documented as of this encounter (statuses as of 09/19/2024) Medications aspirin enteric coated 81 MG TBECIndications: Aortic valve disorder Take 1 Tab by mouth daily. 90 Tab 11 9 Active AZO Cranberry 250-30 MG Oral Tablet Take 1 Tablet by mouth in the morning and 1 Tablet before bedtime. Active BD Glucose 5 GM Oral Tablet Chewable (Glucose)Indicat ions:DM type 2, not at goal ([facility]) 3 every 15 minutes until glucose [...] before bedtime. 90 Capsule 2 4 Active Levothyroxine Sodium 75 MCG Oral Tablet (Levoxyl)Indicat ions:Hypothyroid ism TAKE 1 TAB BY MOUTH DAILY FIRST THING IN AM, AT LEAST 30 MIN PRIOR TO BREAKFAST OR OTHER MEDICATIONS 90 Tablet 4 Active Meclizine HCl 25 MG Oral [...] nostril in the morning. 16 g 3 09/24/202 4 Active documented as of this encounter (statuses as of 09/19/2024) Active Problems Problem Noted Date Diagnosed Date [...] of [place]ouglas heart without angina pectoris 12/16/2019 Assessment & [...] as of this encounter (statuses as of 09/19/2024) Resolved Problems Problem Noted Date Diagnosed Date [...] 12/21/2016 Diabetes mellitus 01/05/2014 12/21/2016 LEYVA RESEARCH OTHER*[id number] 01/05/2014 12/21/2016 Axillary pain 11/03/2013 12/21/2016 Obesity, [...] 09/201008/26/2011 12/21/2016 FOLLOWING SURGERY, UNSPECIFI ED ([facility] 08/25/2011) 08/26/2011 12/21/2016 ADVANCE DIRECTIVE INFORMATION 04/17/2011 12/21/2016 Overview (01/21/2010): Yes, Patient instructed to provide copy of advance directive for provider to review and to be scanned into Electronic Medical Record ADVANCE DIRECTIVE INFORMATION 03/01/2011 12/21/2016 Overview (03/01/2011): Yes, Patient instructed to provide copy of advance directive for provider to review and to be scanned into Electronic Medical Record [facility] V710 Clinical Trial*[id number] 12/22/2010 04/14/2011 S/P aortic valve replacement 12/01/2010 08/26/2011 S/P AORTIC VALVE REPLACEMENT - #25 pericardial Mc valve 11/01/2010 06/28/2018 Overview (11/02/2010): Aortic valve replacement with #25 pericardial Mc valve, model 2800TFX, serial number [id number] (Dr. Walker) [facility] V710 Clinical Trial*[id number] 10/18/2010 11/21/2010 Type 2 diabetes mellitus wit [...] as of this encounter (statuses as of 09/19/2024) Immunizations Name Administration Dates Next Due COVID-19 mRNA, LNP-s, No Pre serve, 2-Dose Series (Moderna) 10/25/2021,02/16/2021,01/18/2021 HEP A - Hepatitis A (Adult > 18 yrs) 06/07/2018, 12/05/2017 Hepatitis B, 20+ yrs 06/07/2018,01/08/20 18,12/05/2017,06/15,10/27/2013,09/12/2013 PPD 10/26/2019,10/17/2019 Pneumococcal Conjugate Vacci ne, 20-valent (Fnedaps14) 06/22/2023 Pneumococcal Polysaccharide PPV23 (Pneumovax) 01/02/2008 Seasonal [...] 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 PH [phone] Stated patient requested scripts from [facility] be switched over to [facility]. Stated that script to be switched was Tresiba FlexTouch 200 UNIT/ML Subcutaneous Solution Pen-injector (Insulin Degludec) Inform caller that script for Tresiba was not by Vickey Mcgowan and that [facility] Mcgow[facility] has not seen the patient for nearly a year. Also state that patient will need to notify us if pharmacy change is requested. Caller states they will check their information and call patient. documented in this encounter Plan of Treatment Upcoming Encounters Date Type Department Care Team (Late st Contact Info) Description 09/30/2024 11:10 AM EST Office Visit Pharmacy, [facility] [address] [facility] [place] [address] Pharmacist1, [facility] [address] [facility] [place] [address] 10/23/2024 9:30 AM EST Scheduled Telephone [facility], [facility] [address] [facility] [place] [address] Lakesha King RDN [address] [place] [address] 11/03/2024 11:00 AM EST Office Visit [facility] Disorders Ctr [facility] [address] [facility] [place] [phone] Christina Birch DO [address] [place] [address] 11/04/2024 9:30 AM EST Office Visit Gastroenterology, [facility] [address] [place] [address] Tia Taylor CRNP [address] [place] [address] 01/26/2025 11:40 AM EDT Office Visit Nephrology, [facility] [address] [facility] [place] [address] Fidelina Baumann MD [address] [facility] [place] [address] Scheduled Procedures Name Priority Associated Diagnoses Date/Ti [...] 10/25/2021, 02/16/2021, 01/18/2021 CKD PHOS USE SMARTSET 72431 06/18/202405/26, 06/16/2023, 06/15/2023, Additional history exists HbA1c 08/01/2024 01/30/2024, 08/25, 07/31/2023, Additional history exists Diabetic Eye Exam 09/13/2024 09/13/2023, , 09/13/2023, Additional history exists B-12 09/18/2024 09/18/2023, 08/24, 2020, Additional history exists GFR 11/01/2024 05/01/2024, 12/23, 10/15/2023, Additional history exists Albumin/Creatinine Ratio 01/07/2025 024, 03/09/2023, 12/22/2022, Additional history exists CKD HGB USE SMARTSET 71241 01/07/202501/07, 01/08/2024, 10/15/2023, Additional history exists TSH [...] this encounter Medical Devices Implanted Type Area Tester Regulator Device Identifier Shelf Expiration Date Model / Serial / Lot Cath Roselia Single Lumen - [id number] Implanted:Qty : 1 on 03/12/2008 at OR [facility] Left: Chest [employer] *DO NOT USE* 07/25/2012 21-4053-24 / / [id number] Sut Steel 6 M654g - [id number] Implanted:Qty : 1 on 11/01/2010 at OR [facility] N/A: Chest DO NOT USE M654G / / Sut Steel 6 M654g - [id number] Implanted:Qty : 1 on 11/01/2010 at OR [facility] N/A: Chest DO NOT USE M654G / / Valve Tarsha Aortic [id number] - [id number] Implanted:Qty : 1 on 11/01/2010 at OR [facility] N/A: Heart [employer] 05/20/2012 2800TFX-25 / / [id number] Description:[email or web address] Mesh Soft 24g37sd - [id number] Implanted:Qty : 1 on 10/10/2019 by Gigi Hendrickson MD at [place] [facility] N/A: Abdomen CR BARD : DAVOL [id number] 05/21/2024 [id number] / / [id number] Lens 22.5 Sn60wf - [id number] - [id number] Implanted:Qty : 1 on 09/15/2020 by Renaldo Cook, Cece Acosta MD at OR [facility] Right: Eye IVA : SURGICAL [id number] 05/13/2025 SN60 WF.225 / [id number] / [id number] Lens 21.5 Sn60wf - [id number] - [id number] Implanted:Qty : 1 on 12/19/2023 by Ramsey Burnett DO at OR [facility] Left: Eye IVA : SURGICAL 12/03/2024 SN60WF.2 15 / [id number] / documented as of this encounter [...] statute hierarchy) Jovita Ovalle Adult Child Health Hand Straightener resentative (appointed verbally by patient or by statute hierarchy) [email or web address] Care Teams Outside Sales Advertising Executive Relationship Specialty Start Date End Date Gregory Rausch MD [address] [place] [address] PCP - General Family Medicine 02/12/20 documented as of this encounter
--- OUTSIDE RECORDS SUMMARY | 2024-10-02 03:20 | External Medical Summary | Summary of Care ---
Author Name Unknown Organization [facility] Address [address] [place] [address] Phone [phone] Care Team Providers Care Leather Staker Name Role Phone Deon Rausch MD Primary Care Provider [phone] Reason for Visit * Reason Onset Date Comments Medication Refill 09/15/2024 Encounter Details Date Type Department Care Team (Late st Contact Info) Description 09/15/2024 Refill Family Practice [facility] [address] [place] [address] Deon Rausch MD [address] [place] [address] Acute intractable tension-type headache Allergies Active Allergy Reactions Criticality Noted Date Comments Adhesive Tape 07/02/2017 Can tolerate band-aids Glycerin Other (Please comment) 03/12/2008 Topical agents with glycein-burning & itching Lactose 12/09/2014 Dairy - gas Lisinopril Cough 01/21/2010 Monosodium Glutamate Edema Other 03/12/2008 Hands and feet Penicillins Rash 11/14/2007 documented as of this encounter (statuses as of 09/18/2024) Medications aspirin enteric coated 81 MG TBECIndications: Aortic valve disorder Take 1 Tab by mouth daily. 90 Tab 11 09/30/19 19 Active AZO Cranberry 250-30 MG Oral Tablet Take 1 Tablet by mouth in the morning and 1 Tablet before bedtime. Active BD Glucose 5 GM Oral Tablet Chewable (Glucose)Indicat ions:DM type 2, not at goal ([facility]) 3 every 15 minutes until glucose is > 100 mg/dL for hypoglycemia E11.9 100 Tab 3 07/06/20 21 Active OneTouch Verio w/Device Kit Use up to 4 times a day E11.9 1 Kit 02/11/20 22 Active OneTouch Delica Lancets 33G TEST 4 TIMES DAILY DIRECTED, E11.9 400 Each 3 02/11/20 22 Active Melatonin 10 MG Oral CapsuleIndicatio ns:sleep [...] ejection fraction (HFpEF) ([facility]) Take 1 Tablet by mouth in [...] bedtime. 90 Capsule 2 06/16/20 24 Active Levothyroxine Sodium 75 MCG Oral Tablet (Levoxyl)Indicat ions:Hypothyroid ism TAKE 1 TAB BY MOUTH DAILY FIRST THING IN AM, AT LEAST 30 MIN PRIOR TO BREAKFAST OR OTHER MEDICATIONS 90 Tablet 06/16/20 24 Active Meclizine HCl 25 MG [...] 24 Active Dificid 200 MG Oral Tablet (Fidaxomicin)Ind ications:Chronic diarrhea Take 1 Tablet by mouth in the morning and 1 Tablet before bedtime. 60 Tablet 08/12/20 24 Active Klayesta 973538 UNIT/GM External Powder (Nystatin)Indica tions:Candidal intertrigo APPLY TOPICALLY TO AFFECTED AREA 3 TIMES A DAY 60 g 1 08/19/20 24 Active NovoLOG FlexPen 100 UNIT/ML Subcutaneous Solution Pen-injector (insulin aspart)Indicatio ns:Type 2 diabetes mellitus with hemoglobin A1c goal of less than 7.0% ([facility]) INJECTED UNDER THE SKIN BEFORE MEALS, 3 TIMES PER DAY: 2 UNITS PER 50 WHEN GLUCOSE IS OVER 200 UNITS. TDD: 50. ICD10: E11.9. 45 mL 1 08/20/20 24 Active Butalbital-Aspir in-Caffeine 50-325-40 MG Oral Capsule (Fiorinal)Indica tions:Acute intractable tension-type headache Take 1 Capsule by mouth every 4 hours as needed for Headache. 30 Capsule 09/18/20 24 Active Butalbital-Aspir in-Caffeine 50-325-40 MG Oral Capsule (Fiorinal)Indica tions:Acute intractable tension-type headache Take 1 Capsule by mouth every 4 hours as needed for Headache. 30 Capsule 06/16/20 24 024 Discontin ued(Refil l) documented as of this encounter (statuses as of 09/18/2024) Active Problems Problem Noted Date Diagnosed Date [...] eye 09/28/2020 Coronary artery disease invo lving asa'carsarmiut coronary artery of asa'carsarmiut heart without angina pectoris 12/16/2019 Assessment & [...] as of this encounter (statuses as of 09/18/2024) Resolved Problems Problem Noted Date Diagnosed Date [...] 12/21/2016 Diabetes mellitus 01/05/2014 12/21/2016 LEYVA RESEARCH OTHER*[id number] 01/05/2014 12/21/2016 Axillary pain 11/03/2013 12/21/2016 Obesity, [...] 12/21/2016 FOLLOWING [facility] 08/26/2011 12/21/2016 ADVANCE DIRECTIVE INFORMATION 04/17/2011 12/21/2016 Overview (01/21/2010): Yes, Patient instructed to provide copy of advance directive for provider to review and to be scanned into Electronic Medical Record ADVANCE DIRECTIVE INFORMATION 03/01/2011 12/21/2016 Overview (03/01/2011): Yes, Patient instructed to provide copy of advance directive for provider to review and to be scanned into Electronic Medical Record [facility] V710 Clinical Trial*[id number] 12/22/2010 04/14/2011 S/P aortic valve replacement 12/01/2010 08/26/2011 S/P AORTIC VALVE REPLACEMENT - #25 pericardial Mc valve 11/01/2010 06/28/2018 Overview (11/02/2010): Aortic valve replacement with #25 pericardial Mc valve, model 2800TFX, serial number [id number] (Dr. Walker) [facility] V710 Clinical Trial*[id number] 10/18/2010 11/21/2010 Type 2 diabetes mellitus wit [...] as of this encounter (statuses as of 09/18/2024) Immunizations Name Administration Dates Next Due COVID-19 mRNA, LNP-s, No Pre serve, 2-Dose Series (Moderna) 10/25/2021,02/16/2021,01/18/2021 HEP A - Hepatitis A (Adult > 18 yrs) 06/07/2018, 12/05/2017 Hepatitis B, 20+ yrs 06/07/2018,01/08/20 18,12/05/2017,06/15,10/27/2013,09/12/2013 PPD 10/26/2019,10/17/2019 Pneumococcal Conjugate Vacci ne, 20-valent ([id number]) 06/22/2023 Pneumococcal Polysaccharide PPV23 (Pneumovax) 01/02/2008 Seasonal [...] Industry Job Start 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 Authorizing Provider: DEON RAUSCH * Telephone Encounter - Tory Gooden [facility] - 09/18/2024 11:44 AM EST Pending Prescriptions: Disp Refills Qqbfyqrdyn-Pmkexxo-Bmzpibso 50-325-40 MG O*30 Cap*0 Sig: Take 1 Capsule by mouth every 4 hours as needed for Headache. * Telephone Encounter - Tory Gooden [facility] - 09/18/2024 11:34 AM EST Patient is switching pharmacies to [facility]. [facility] will delete rx on 06/16/2024 so can be resent to [facility] I have reviewed the patients controlled substance dispensing history in the Prescription Drug Monitoring Program in compliance with the [facility] regulations before prescribing a controlled substance. PDMP checked on 09/18/2024. Pending Prescriptions: Disp Refills Qzakyynltl-Nzjvkov-Inztuaif 50-325-40 MG *30 Cap*0 Sig: Take 1 Capsule by mouth every 4 hours as needed for Headache. Last Visit: 08/12/2024 (in office), 09/12/2023 (telemedicine) Next Visit: Visit date not found Date medication was last filled: 05/07/2024 Date medication is due for refill: 05/12/2024 Pharmacy: [facility] Is this request for a controlled substance? Yes and Urine Drug Screen Not completed Toxicology results: No results found. However, due to the size of the patient record, not all encounters were searched.Please check Results Review for a complete set of results. Please approve if appropriate. Thank you, Tory Gooden [facility] Clinical Pharmacist Centralized Clinical Pharmacy Services (CCPS) 09/18/24 11:36 AM [phone] * Telephone Encounter - Eulalia Cruz CPhT - 09/15/2024 3:49 PM EST Did you pend patient's preferred pharmacy and medication before forwarding?yes Pharmacy: [id number] Pending Prescriptions: Disp Refills Efylyzhfem-Hecpkse-Pndgpure 50-325-40 MG *30 Cap*0 Sig: Take 1 Capsule by mouth every 4 hours as needed for Headache. Last Visit: 08/12/2024 (in office), 09/12/2023 (telemedicine) Next Visit: Visit date not found If no future appointments scheduled, and last appointment is greater than a year ago, please schedule patient for a follow-up appointment Last date the medication was ordered: 06/16/24 Is this request for a controlled substance?Yes, What was the last refill date 06/16/24 w/ quantity 30 and dosage 50-325-40 and Urine Drug Screen Not completed Urine [...] 12:22 PM TSH 2.41 12/09/2019 01:49 PM LDL 52 04/09/2023 01:44 PM LDL 30 09/07/2020 10:58 AM LDL 32 08/30/2018 04:00 PM ALT 20 01/08/2024 12:22 PM ALT 20 09/07/2020 10:58 AM HGBA1C 8.8 (H) 01/30/2024 08:27 AM HGBA1C 8.3 (H) 12/09/2019 01:49 PM documented in this encounter Plan of Treatment Upcoming Encounters Date Type Department Care Team (Late st Contact Info) Description 09/30/2024 11:10 AM EST Office Visit Pharmacy, [facility] [address] [place] [address] Pharmacist1, [facility] [address] [place] [address] 10/23/2024 9:30 AM EST Scheduled Telephone [facility], [facility] [address] [facility] [place] [address] Lakesha King, RDN [address] [facility] [place] [address] 11/03/2024 11:00 AM EST Office Visit Sleep Disorders Ctr [facility] [address] [place] [address] Christina Birch DO [address] [place] [address] 11/04/2024 9:30 AM EST Office Visit Gastroenterology, [facility] [address] [facility] [place] [address] Tia Taylor CRNP [address] [place] [address] 01/26/2025 11:40 AM EDT Office Visit Nephrology, [facility] [address] [facility] [place] [address] Fidelina Baumann MD [address] [facility] [place] [address] Scheduled Procedures Name Priority Associated Diagnoses Date/Ti [...] 10/25/2021, 02/16/2021, 01/18/2021 CKD PHOS USE SMARTSET 71533 06/18/202405/26, 06/16/2023, 06/15/2023, Additional history exists HbA1c 08/01/2024 01/30/2024, 08/25, 07/31/2023, Additional history exists Diabetic Eye Exam 09/13/2024 09/13/2023, , 09/13/2023, Additional history exists B-12 09/18/2024 09/18/2023, 08/24, 2020, Additional history exists GFR 11/01/2024 05/01/2024, 12/23, 10/15/2023, Additional history exists Albumin/Creatinine Ratio 01/07/2025 024, 03/09/2023, 12/22/2022, Additional history exists CKD HGB USE SMARTSET 20571 01/07/202501/07, 01/08/2024, 10/15/2023, Additional history exists TSH [...] this encounter Medical Devices Implanted Type Area Banana Room Cutter Device Identifier Shelf Expiration Date Model / Serial / Lot Cath Roselia Single Lumen - [id number] Implanted:Qty : 1 on 03/12/2008 at OR [facility] Left: Chest [employer] *DO NOT USE* 07/25/2012 21-4053-24 / / [id number] Sut Steel 6 M654g - [id number] Implanted:Qty : 1 on 11/01/2010 at OR [facility] N/A: Chest DO NOT USE M654G / / Sut Steel 6 M654g - [id number] Implanted:Qty : 1 on 11/01/2010 at OR [facility] N/A: Chest DO NOT USE M654G / / Valve Tarsha Aortic [id number] - [id number] Implanted:Qty : 1 on 11/01/2010 at OR [facility] N/A: Heart [employer] DANIEL 05/20/2012 [id number]-25 / / [id number] Description:[email or web address] Mesh Soft 67u41tl - [id number] Implanted:Qty : 1 on 10/10/2019 by Gigi Hendrickson MD at OR [facility] N/A: Abdomen CR BARD : DAVOL [id number] 05/21/2024 [id number] / / [id number] Lens 22.5 Sn60wf - [id number] - [id number] Implanted:Qty : 1 on 09/15/2020 by Renaldo Cook, Cece Acosta MD at OR [facility] Right: Eye IVA : SURGICAL [id number] 05/13/2025 SN60 WF.225 / [id number] / [id number] Lens 21.5 Sn60wf - [id number] - [id number] Implanted:Qty : 1 on 12/19/2023 by Ramsey Burnett DO at OR [facility] Left: Eye IVA : SURGICAL 12/03/2024 SN60WF.2 15 / [id number] / documented as of this encounter [...] valve replaced by other means Atherosclerosis of asa'carsarmiut coronary artery of asa'carsarmiut heart without angina pectoris Schizoaffective disorder, bipolar type (HCC) Schizoaffective disorder, unspecified condition LEYVA (nonalcoholic steatohepatitis) Other chronic nonalcoholic liver disease Type 2 diabetes mellitus with diabetic mononeuropathy, with long-term current use of insulin (HCC)- Primary Atherosclerosis of asa'carsarmiut coronary artery of asa'carsarmiut heart without angina pectoris Hypertensive heart and [...] of insulin (HCC) Coronary artery disease involving asa'carsarmiut coronary artery of asa'carsarmiut heart without angina pectoris HTN, goal below [...] Mood disorder (HCC) Unspecified episodic mood disorder Acute intractable tension-type headache documented in this [...] statute hierarchy) Jovita Ovalle Adult Child Health Bath Mix Operator resentative (appointed verbally by patient or by statute hierarchy) Care Teams Leather Staker Relationship Specialty Start Date End Date Deon Rausch MD [address] [place] [address] PCP - General Family Medicine 02/12/20 documented as of this encounter
--- OUTSIDE RECORDS SUMMARY | 2024-10-02 03:20 | External Medical Summary | Summary of Care ---
Author Name Unknown Organization [facility] Address [address] [place] [address] Phone [phone] Care Team Providers Care Retail Store Manager Name Role Phone Gregory Rausch MD Primary Care Provider [phone] Reason for Visit * Reason Onset Date Comments Med Request 09/15/2024 Encounter Details Date Type Department Care Team (Late st Contact Info) Description 09/15/2024 Telephone Family Practice [facility] [address] [place] [address] rGegory Rausch MD [address] [place] [address] Med Request Allergies Active Allergy Reactions Criticality Noted Date Comments Adhesive Tape 07/02/2017 Can tolerate band-aids Glycerin Other (Please comment) 03/12/2008 Topical agents with glycein-burning & itching Lactose 12/09/2014 Dairy - gas Lisinopril Cough 01/21/2010 Monosodium Glutamate Edema Other 03/12/2008 Hands and feet Penicillins Rash 11/14/2007 documented as of this encounter (statuses as of 09/16/2024) Medications aspirin enteric coated 81 MG TBECIndications:Ao rtic valve disorder Take 1 Tab by mouth daily. 90 Tab 11 09/30/19 19 Active AZO Cranberry 250-30 MG Oral Tablet Take 1 Tablet by mouth in the morning and 1 Tablet before bedtime. Active BD Glucose 5 GM Oral Tablet Chewable (Glucose)Indicatio ns:DM type 2, not at goal ([facility]) 3 every 15 minutes until [...] morning. 30 Capsule 1 06/02/20 24 Active Atorvastatin Calcium 40 MG Oral Tablet (Lipitor)Indicatio ns:Heart failure, systolic, due to idiopathic cardiomyopathy ([facility]),S/P aortic valve replacement,HTN, goal below 140/80,Dyslipidemi a, goal LDL below 70 Take 1 tablet by mouth daily to prevent heart attack/stroke, protect kidney, and cholesterol 90 Tablet 06/16/20 24 Active Clopidogrel Bisulfate 75 MG Oral Tablet (pLAVix) Take 1 Tablet by mouth in the morning. 90 Tablet 06/16/20 24 Active Gabapentin 300 MG Oral Capsule [...] Indications: weekly on fridays, Reported on 08/12/2024 Butalbital-Aspirin -Caffeine 50-325-40 MG Oral Capsule (Fiorinal)Indicati ons:Acute intractable tension-type headache Take 1 Capsule by mouth every 4 hours as needed for Headache. 30 Capsule 06/16/20 24 Active Fluticasone Propionate 50 MCG/ACT [...] insulin ([facility]) Inject 36 Units under the [...] bedtime. 60 Tablet 08/12/20 24 Active Klayesta 917460 UNIT/GM External Powder (Nystatin)Indicati ons:Candidal intertrigo APPLY TOPICALLY TO AFFECTED AREA 3 TIMES A DAY 60 g 1 08/19/20 24 Active NovoLOG FlexPen 100 UNIT/ML Subcutaneous Solution Pen-injector (insulin aspart)Indications :Type 2 diabetes mellitus with hemoglobin A1c goal of less than 7.0% ([facility]) INJECTED UNDER THE SKIN BEFORE MEALS, 3 TIMES PER DAY: 2 UNITS PER 50 WHEN GLUCOSE IS OVER 200 UNITS. TDD: 50. ICD10: E11.9. 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 08/26/2011 12/21/2016 ADVANCE DIRECTIVE INFORMATION 04/17/2011 [...] [facility] V710 Clinical Trial*[id number] 12/22/2010 04/14/2011 S/P aortic valve replacement 12/01/2010 08/26/2011 S/P AORTIC VALVE REPLACEMENT - #25 pericardial Mc valve 11/01/2010 06/28/2018 Overview (11/02/2010): Aortic valve replacement with #25 pericardial Mc valve, model 2800TFX, serial number [id number] (Dr. Walker) [facility] V710 Clinical Trial*[id number] 10/18/2010 11/21/2010 Type 2 diabetes mellitus wit [...] as of this encounter (statuses as of 09/16/2024) Immunizations Name Administration Dates Next Due COVID-19 mRNA, LNP-s, No Pre serve, 2-Dose Series (Moderna) 10/25/2021,02/16/2021,01/18/2021 HEP A - Hepatitis A (Adult > 18 yrs) 06/07/2018, 12/05/2017 Hepatitis B, 20+ yrs 06/07/2018,01/08/20 18,12/05/2017,06/15,10/27/2013,09/12/2013 PPD 10/26/2019,10/17/2019 Pneumococcal Conjugate Vacci ne, 20-valent ([id number]) 06/22/2023 Pneumococcal Polysaccharide PPV23 (Pneumovax) 01/02/2008 Seasonal [...] Orientation Straight 12/27/2018 9 :43 AM EDT Occupation Industry Job Start Date Job End Date 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 Ordered thru [employer]. Neeraj Romero RPh, [facility] Clinical Pharmacist [facility]ication Therapy Management [facility] 09/16/2024, 10:16 AM * Telephone Encounter - Eulalia Cruz CPhT - 09/15/2024 3:54 PM EST Pt calling for a new prescription for Omnipod 5 PODS med is not listed on med list please advise caller can be reached [phone]. Thank you, Eulalia Cruz CPhT [employer] In[employer] Servicer II Centralized Clinical Pharmacy Services ([facility]PS) (Formerly Telepharmacy) 09/15/2024,3:56 PM documented in this encounter Plan of Treatment Upcoming Encounters Date Type Department Care Team (Late st Contact Info) Description 09/30/2024 11:10 AM EST Office Visit Pharmacy, [facility] [place] [address] [place] [address] Pharmacist1, [facility] [address] [place] [address] 10/23/2024 9:30 AM EST Scheduled Telephone [facility], [place] [address] [facility] [place] [address] Fernando Lakesha Jovita, RDN [address] [facility] [place] [address] 11/03/2024 11:00 AM EST Office Visit Sleep Disorders [facility] [address] [place] [address] Christina Birch DO [address] [place] [address] 11/04/2024 9:30 AM EST Office Visit Gastroenterology, [facility] [address] [place] [address] Tia Taylor CRNP [address] [place] [address] 01/26/2025 11:40 AM EDT Office Visit Nephrology, [facility] [address] [facility] [place] [address] Fidelina Baumann MD [address] [facility] [place] [address] Scheduled Procedures Name Priority Associated Diagnoses Date/Ti [...] 10/25/2021, 02/16/2021, 01/18/2021 CKD PHOS USE SMARTSET 01770 06/18/202405/26, 06/16/2023, 06/15/2023, Additional history exists HbA1c 08/01/2024 01/30/2024, 08/25, 07/31/2023, Additional history exists Diabetic Eye Exam 09/13/2024 09/13/2023, , 09/13/2023, Additional history exists B-12 09/18/2024 09/18/2023, 08/24, 2020, Additional history exists GFR 11/01/2024 05/01/2024, 12/23, 10/15/2023, Additional history exists Albumin/Creatinine Ratio 01/07/2025 024, 03/09/2023, 12/22/2022, Additional history exists CKD HGB USE SMARTSET 16212 01/07/202501/07, 01/08/2024, 10/15/2023, Additional history exists TSH [...] encounter Medical Devices Implanted Type Area Snack Stewardess Device Identifier Shelf Expiration Date Model / Serial / Lot Cath Roselia Single Lumen - [id number] Implanted:Qty : 1 on 03/12/2008 at OR [facility] Left: Chest [facility] *DO NOT USE* 07/25/2012 21-4053-24 / / [id number] Sut Steel 6 M654g - [id number] Implanted:Qty : 1 on 11/01/2010 at OR [facility] N/A: Chest DO NOT USE M654G / / Sut Steel 6 M654g - [id number] Implanted:Qty : 1 on 11/01/2010 at OR [facility] N/A: Chest DO NOT USE M654G / / Valve Tarsha Aortic [id number] - [id number] Implanted:Qty : 1 on 11/01/2010 at OR [facility] N/A: Heart [employer] DANIEL 05/20/2012 2800TFX-25 / / [id number] Description:[email or web address] Mesh Soft [id number] - [id number] Implanted:Qty : 1 on 10/10/2019 by Gigi Hendrickson MD at [place] [facility] N/A: Abdomen CR BARD : DAVOL [id number] 05/21/2024 [id number] / / [id number] Lens 22.5 Sn60wf - [id number] - [id number] Implanted:Qty : 1 on 09/15/2020 by Cece Roland MD at [facility] Right: Eye IVA : SURGICAL [id number] 05/13/2025 SN60 WF.225 / [id number] / [id number] Lens 21.5 Sn60wf - [id number] - [id number] Implanted:Qty : 1 on 12/19/2023 by Ramsey Burnett DO at OR [facility] Left: Eye IVA : SURGICAL 12/03/2024 SN60WF.2 [id number] / documented as of this encounter [...] patient or by statute hierarchy) Care Teams Retail Store Manager Relationship Specialty Start Date End Date Gregory Rausch MD [address] [place] [address] PCP - General Family Medicine 02/12/20 documented as of this encounter
--- OUTSIDE RECORDS SUMMARY | 2024-10-02 03:21 | External Medical Summary | Summary of Care ---
Author Name Unknown Organization [facility] Address [address] [place] [address] Phone [phone] Care Team Providers Care Electrical Controls Technician Name Role Phone Gregory Rausch MD Primary Care Provider [phone] Reason for Visit * Reason Comments Diabetes Follow-Up Dosage Adjustment Via Phone (anticoag Cl inic) Encounter Details Date Type Department Care Team (Late st Contact Info) Description 09/03/2024 1:00 PM [facility] Telemedicine Pharmacy, [facility] [address] [facility] [place] [address] Pharmacist1, [facility] [address] [facility] [place] [address] Type 2 diabetes mellitus with hemoglobin A1c goal of less than 8.0% ([facility])*; Type 2 diabetes mellitus with stage 3a chronic kidney disease, with long-term current use of insulin ([facility]) Allergies Active Allergy Reactions Criticality Noted Date Comments Adhesive Tape 07/02/2017 Can tolerate band-aids Glycerin Other (Please comment) 03/12/2008 Topical agents with glycein-burning & itching Lactose 12/09/2014 Dairy - gas Lisinopril Cough 01/21/2010 Monosodium Glutamate Edema Other 03/12/2008 Hands and feet Penicillins Rash 11/14/2007 documented as of this encounter (statuses as of 09/03/2024) Medications aspirin enteric coated 81 MG TBECIndications:Ao rtic valve disorder Take 1 Tab by mouth daily. 90 Tab 11 09/30/19 19 Active AZO Cranberry 250-30 MG Oral Tablet Take 1 Tablet by mouth in the morning and 1 Tablet before bedtime. Active BD Glucose 5 GM Oral Tablet Chewable (Glucose)Indicatio ns:DM type 2, not at goal ([facility]) 3 every 15 minutes until [...] heart failure with preserved ejection fraction (HFpEF) ([facility]) Take 1 Tablet by mouth in the morning and 1 Tablet before bedtime. 180 Tablet 3 01/22/20 24 Active BD Pen Needle Short U/F 31G X 8 MMIndications:Type 2 diabetes mellitus with hemoglobin A1c goal of less than 7.0% ([facility]),Type 2 diabetes mellitus with stage 3a chronic kidney disease, with long-term current use of insulin ([facility]) Use with insulin 4 times [...] hemoglobin A1c goal of less than 7.0% ([facility]) Use up to 50 units per [...] ns:Heart failure, systolic, due to idiopathic cardiomyopathy ([facility]),S/P aortic valve replacement,HTN, goal below 140/80,Dyslipidemi [...] hemoglobin A1c goal of less than 7.0% ([facility]),Type 2 diabetes mellitus with stage 3a chronic kidney disease, with long-term current use of insulin ([facility]) Inject 36 Units under the skin [...] bedtime. 60 Tablet 08/12/20 24 Active Klayesta 917655 UNIT/GM External Powder (Nystatin)Indicati ons:Candidal intertrigo APPLY TOPICALLY TO AFFECTED AREA 3 TIMES A DAY 60 g 1 08/19/20 24 Active NovoLOG FlexPen 100 UNIT/ML Subcutaneous Solution Pen-injector (insulin aspart)Indications :Type 2 diabetes mellitus with hemoglobin A1c goal of less than 7.0% (HCC) INJECTED UNDER THE SKIN BEFORE MEALS, 3 TIMES PER DAY: 2 UNITS PER 50 WHEN GLUCOSE IS OVER 200 UNITS. TDD: 50. ICD10: E11.9. 45 mL 1 08/20/20 24 Active documented as of this encounter (statuses as of 09/03/2024) Active Problems Problem Noted Date Diagnosed Date [...] eye 09/28/2020 Coronary artery disease invo lving robinson coronary artery of robinson heart without angina pectoris 12/16/2019 Assessment & [...] as of this encounter (statuses as of 09/03/2024) Resolved Problems Problem Noted Date Diagnosed Date [...] 12/21/2016 Diabetes mellitus 01/05/2014 12/21/2016 LEYVA RESEARCH OTHER*[id number] 01/05/2014 12/21/2016 Axillary pain 11/03/2013 12/21/2016 Obesity, [...] cath 09/201008/26/2011 12/21/2016 FOLLOWING SURGERY, UNSPECIFI ED ([facility] 08/25/2011) 08/26/2011 12/21/2016 ADVANCE DIRECTIVE INFORMATION 04/17/2011 12/21/2016 Overview (01/21/2010): Yes, Patient instructed to provide copy of advance directive for provider to review and to be scanned into Electronic Medical Record ADVANCE DIRECTIVE INFORMATION 03/01/2011 12/21/2016 Overview (03/01/2011): Yes, Patient instructed to provide copy of advance directive for provider to review and to be scanned into Electronic Medical Record [facility] V710 Clinical Trial*[id number] 12/22/2010 04/14/2011 S/P aortic valve replacement 12/01/2010 08/26/2011 S/P AORTIC VALVE REPLACEMENT - #25 pericardial Mc valve 11/01/2010 06/28/2018 Overview (11/02/2010): Aortic valve replacement with #25 pericardial Mc valve, model [id number], serial number [id number] (Dr. Walker) [facility] V710 Clinical Trial*[id number] 10/18/2010 11/21/2010 Type 2 diabetes mellitus wit [...] as of this encounter (statuses as of 09/03/2024) Immunizations Name Administration Dates Next Due COVID-19 mRNA, LNP-s, No Pre serve, 2-Dose Series (Moderna) 10/25/2021,02/16/2021,01/18/2021 HEP A - Hepatitis A (Adult > 18 yrs) 06/07/2018, 12/05/2017 Hepatitis B, 20+ yrs 06/07/2018,01/08/20 18,12/05/2017,06/15,10/27/2013,09/12/2013 PPD 10/26/2019,10/17/2019 Pneumococcal Conjugate Vacci ne, 20-valent (Untutce15) 06/22/2023 Pneumococcal Polysaccharide PPV23 (Pneumovax) 01/02/2008 Seasonal [...] No 04/08/2024 Does the household have a [facility] source of income? 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 After connecting to the patient via telephone, the patient was identified by name and date of . Patient was then informed that this was a telephone call only visit. The patient agreed to participate. Visit Disposition: Routine follow-up Total call duration was 8 minutes. Interval History: Jovita Rose is an 63 year old year old female returning to the [facility] for a diabetes insulin pump follow-up visit. Current Diabetes Medications: Ozempic 2mg every Sunday Omnipod Insulin Pump (Serial Number: need to get) Insulin: Novolog Basal Rate: 1.5units/hour Bolus: using carb counting Bolus Calculator: on and using ICR: 25 ISF: 25 Blood Glucose Goal Limits: 70-180 Bolus Calculator: Target B Correct above: 180 Minimum B Active Insulin Time: 2 hours Medication Injection Site: Abdomen [place] Blood Glucose Review: She cannot download Omnipod or Dexcom. She stated she has had no low BG and overall BG have been lower than before starting pump. Hypoglycemia Assessment: 1. Do you know what the symptoms of hypoglycemia are? Yes 2. How often can you tell by your symptoms if your blood sugar is low? Always 3. In a typical week, how many times will your blood sugar go below 70 mg/dL? Never Patient Active Problem List Diagnosis Dyslipidemia DANYELLE [...] coronary stent placement Schizoaffective disorder, bipolar type ([facility]) Medical marijuana use Coronary artery disease involving robinson coronary artery of robinson heart without angina pectoris Cystoid macular edema of right eye Type 2 diabetes mellitus with stage 3a chronic kidney disease, with long-term current use of insulin ([facility]) Type 2 diabetes mellitus with hemoglobin A1c goal of less than 8.0% ([facility]) Type 2 diabetes mellitus with diabetic peripheral angiopathy without gangrene ([facility]) Obesity, Class I, BMI 30.0-34.9 (see actual BMI) Thrombocytopenia ([facility]) Hypertensive kidney disease with stage 3a chronic kidney disease ([facility]) Atrial fibrillation ([facility]) Polyneuropathy associated with underlying disease ([facility]) Review of patient's allergies indicates: Allergen Reactions [...] mg/dL for hypoglycemia E11.9 100 Tab 3 RetailTowerTouch Verio w/Device Kit Use up to 4 times a day E11.9 1 Kit 0 2threads DelMercora Lancets 33G TEST 4 TIMES DAILY DIRECTED, E11.9 400 Each 3 Melatonin 10 MG Oral Capsule Take 1 Capsule by mouth at bedtime. Gaviscon 80-14.2 MG Oral Tablet Chewable (Alum Hydroxide-Mag Trisilicate) Take by mouth as needed. traZODone HCl 100 MG Oral Tablet (Desyrel) Take 1 Tablet by mouth at bedtime. CPAP every night at bedtime. One-A-Day Womens 50 Plus Oral Tablet Take 1 Tablet by mouth in the morning. Probiotic (Lactobacillus) Oral Capsule Take 2 Capsules by mouth in the morning. OneTouch Verio In Vitro Strip (Glucose Blood) [...] Skin. Apply to face 420 g 0 Ammonium Lactate 12 % External Lotion (Lac-Hydrin) Apply to both feet once daily. 400 g 2 Insulin Aspart 100 UNIT/ML Injection Solution (NovoLOG) Use up to 50 units per day in Omnipod. Loperamide HCl 2 MG Oral Capsule (Imodium A-D) Take 1 Capsule by mouth 4 times a day as needed for Diarrhea. Saccharomyces boulardii 250 MG Oral Capsule (Florastor) Take 1 Capsule by mouth in the morning and 1 Capsule before bedtime. 60 Capsule 0 DULoxetine HCl 20 MG Oral Capsule Delayed Release Particles (Cymbalta) Take 1 Capsule by mouth in the morning. 30 Capsule 1 Atorvastatin Calcium 40 MG Oral Tablet (Lipitor) Take 1 tablet by mouth daily to prevent heart attack/stroke, protect kidney, and cholesterol 90 Tablet 0 Clopidogrel Bisulfate 75 MG Oral Tablet (pLAVix) Take 1 Tablet by mouth in the morning. 90 Tablet 0 Gabapentin 300 MG Oral Capsule (Neurontin) Take 1 Capsule by mouth in the morning and 1 Capsule at noon and 1 Capsule before bedtime. 90 Capsule 2 Levothyroxine Sodium 75 MCG Oral Tablet (Levoxyl) TAKE 1 TAB BY MOUTH DAILY FIRST THING IN AM, AT LEAST 30 MIN PRIOR TO BREAKFAST OR OTHER MEDICATIONS 90 Tablet 0 Meclizine HCl 25 MG Oral Tablet (Antivert) Take 2 Tablets by mouth 2 times a day. 360 Tablet 0 Ozempic (2 MG/DOSE) 8 MG/3ML Subcutaneous Solution Pen-injector (Semaglutide (2 MG/DOSE)) Inject 2 mg under the skin once a week. (Patient taking differently: Inject 2 mg under the skin once a week. Tuesdays) 9 mL 1 Zgtgqbtdkn-Ttiligo-Wydcduex 50-325-40 MG Oral Capsule (Fiorinal) Take 1 Capsule by mouth every 4 hours as needed for Headache. 30 Capsule 0 Fluticasone Propionate 50 MCG/ACT Nasal Suspension (Flonase) Administer 2 Sprays into each nostril in the morning. 16 g 3 Tresiba FlexTouch 200 UNIT/ML Subcutaneous Solution Pen-injector (Insulin Degludec) Inject 36 Unitsunder the skin in the morning. 18 mL 3 Metoprolol Tartrate 50 MG Oral Tablet (Lopressor) TAKE 1 TABLET BY MOUTH IN THE MORNING AND BEFORE BEDTIME 180 Tablet 3 Klor-Con M20 20 MEQ Oral Tablet Extended Release (Potassium Chloride ER) TAKE 1 TABLET BY MOUTH EVERY DAY IN THE MORNING 90 Tablet 3 Magnesium Oxide -Mg Supplement 400 (240 Mg) MG Oral Tablet (Mag-Ox) One tablet by mouth daily in the morning 90 Tablet 3 Dificid 200 MG Oral Tablet (Fidaxomicin) Take 1 Tablet by mouth in the morning and 1 Tablet before bedtime. 60 Tablet 0 Klayesta 634876 UNIT/GM External Powder (Nystatin) APPLY TOPICALLY TO AFFECTED AREA 3 TIMES A DAY 60 g 1 NovoLOG FlexPen 100 UNIT/ML Subcutaneous Solution Pen-injector (insulin aspart) INJECTED UNDER THE SKIN BEFORE MEALS, 3 TIMES PER DAY: 2 UNITS PER 50 WHEN GLUCOSE IS OVER 200 UNITS. TDD: 50. ICD10: E11.9. 45 mL 1 No current facility-administered medications for this visit. Objective: The ASCVD Risk score (Kennedy COUGHLIN, et al., 2019) failed to calculate for the following reasons: Risk score cannot be calculated because patient has a medical history suggesting prior/existing ASCVD Estimated body mass index is 30.9 kg/m as calculated from the following: Height as of 08/12/24: 1.499 m (4' 11"). Weight as of 08/12/24: 69.4 kg (153 lb). BP Readings from Last 3 Encounters: 08/12/24 118/64 07/29/24 130/64 07/16/24 143/65 No components found for: "[id number]" No results found for: "MICROALBUMIN" Lab Results Component Value Date/Time LDL CHOLESTEROL (CALCULATED) - [facility] 32 08/30/2018 04:00 PM LDL CHOLESTEROL (DIRECT MEASURE) - [facility] 52 04/09/2023 01:44 PM LDL CHOLESTEROL (DIRECT MEASURE) - [facility] 30 09/07/2020 10:58 AM LDL- [facility] ([facility]) 40 11/04/2013 05:25 AM Lab Results Component Value Date/Time ALT - [facility] 20 01/08/2024 12:22 PM ALT - [facility] 20 09/07/2020 10:58 AM ALT-OUTSIDE LAB 25 07/17/2017 12:00 AM Assessment & Plan: She has had no low BG and BG have been better on the pump. Patient to SMBG at least 4 times daily, before each meal and at bedtime. Patient aware to contact clinic if any hypoglycemia before next visit. Reviewed rule of 15s. Reviewed appropriate management of hyperglycemia as noted in pump start documentation. Diabetes Medications: Ozempic 2mg every Sunday Omnipod Insulin Pump (Serial Number: need to get) Insulin: Novolog Basal Rate: 1.5units/hour Bolus: using carb counting Bolus Calculator: on and using ICR: 25 ISF: 25 Blood Glucose Goal Limits: 70-180 Bolus Calculator: Target B Correct above: 180 Minimum B Active Insulin Time: 2 hours Diabetes Health Maintenance: due for A1C Return to Clinic: 4 week(s) 09/30/2024 I spent a total of 20-29 minutes (exact time 26 mins) on the date of service in preparation, delivery, and documentation of the care provided to Jovita Rose excluding any time spent in the performance of separately billed services or time spent by another provider/QHP. Neeraj Romero RPh Clinical Pharmacist Medication Therapy Disease Management 09/03/2024, 10:21 AM documented in this encounter Plan of Treatment Upcoming Encounters Date Type Department Care Team (Late st Contact Info) Description 09/09/2024 10:00 AM EST Scheduled Telephone [facility], [facility] [address] [facility] [place] [address] Lakesha King, RDN [address] [facility] [place] [address] 09/30/2024 11:10 AM EST Office Visit Pharmacy, [facility] [place] [address] [place] [address] Pharmacist1, [facility] [address] [place] [address] 11/03/2024 11:00 AM EST Office Visit [facility] Ctr [facility] [address] [facility] [place] [phone] Christina Birch, [address] [facility] [place] [address] 11/04/2024 9:30 AM EST Office Visit Gastroenterology, [facility] [address] [facility] [place] [address] Tia Taylor CRNP [address] [facility] [place] [address] 01/09/2025 11:15 AM EDT Office Visit Ophthalmology, [facility] [address] [facility] [place] [address] Ramsey Burnett DO [address] [facility] [place] [address] 01/26/2025 11:40 AM EDT Office Visit Nephrology, [facility] [address] [place] [address] [address] Fidelina Baumann MD [address] [place] [address] Scheduled Procedures Name Priority Associated Diagnoses Date/Ti [...] 10/25/2021, 02/16/2021, 01/18/2021 CKD PHOS USE SMARTSET 46618 06/18/202405/26, 06/16/2023, 06/15/2023, Additional history exists HbA1c 08/01/2024 01/30/2024, 08/25, 07/31/2023, Additional history exists Diabetic Eye Exam 09/13/2024 09/13/2023, , 09/13/2023, Additional history exists B-12 09/18/2024 09/18/2023, 08/24, 2020, Additional history exists GFR 11/01/2024 05/01/2024, 12/23, 10/15/2023, Additional history exists Albumin/Creatinine Ratio 01/07/2025 024, 03/09/2023, 12/22/2022, Additional history exists CKD HGB USE SMARTSET 46829 01/07/202501/07, 01/08/2024, 10/15/2023, Additional history exists TSH [...] this encounter Medical Devices Implanted Type Area Front Desk Supervisor Device Identifier Shelf Expiration Date Model / Serial / Lot Cath Roselia Single Lumen - [id number] Implanted:Qty : 1 on 03/12/2008 at OR [facility] Left: Chest [facility] *DO NOT USE* 07/25/2012 21-4053-24 / / [id number] Sut Steel 6 M654g - [id number] Implanted:Qty : 1 on 11/01/2010 at OR [facility] N/A: Chest DO NOT USE M654G / / Sut Steel 6 M654g - [id number] Implanted:Qty : 1 on 11/01/2010 at OR [facility] N/A: Chest DO NOT USE M654G / / Valve Tarsha Aortic [id number] - [id number] Implanted:Qty : 1 on 11/01/2010 at OR [facility] N/A: Heart [employer]EL 05/20/2012 [id number] / / [id number] Description:[email or web address] Mesh Soft 25y29ut - [id number] Implanted:Qty : 1 on 10/10/2019 by Gigi Hendrickson MD at OR [facility] N/A: Abdomen CR BARD : DAVOL [id number] 05/21/2024 [id number] / / [id number] Lens 22.5 Sn60wf - [id number] - [id number] Implanted:Qty : 1 on 09/15/2020 by Cece Roland MD at OR [facility] Right: Eye IVA : SURGICAL [id number] 05/13/2025 SN60 WF.225 / [id number] / [id number] Lens 21.5 Sn60wf - [id number] - [id number] Implanted:Qty : 1 on 12/19/2023 by Ramsey Burnett DO at OR [facility] Left: Eye IVA : SURGICAL 12/03/2024 SN60WF.2 15 / [id number] / documented as of this encounter [...] valve replaced by other means Atherosclerosis of robinson coronary artery of robinson heart without angina pectoris Schizoaffective disorder, bipolar type (HCC) Schizoaffective disorder, unspecified condition LEYVA (nonalcoholic steatohepatitis) Other chronic nonalcoholic liver disease Type 2 diabetes mellitus with diabetic mononeuropathy, with long-term current use of insulin (HCC)- Primary Atherosclerosis of robinson coronary artery of robinson heart without angina pectoris Hypertensive heart and [...] of insulin (HCC) Coronary artery disease involving robinson coronary artery of robinson heart without angina pectoris HTN, goal below [...] disease, with long-term current use of insulin ([facility]) documented in this encounter Advance Directives * [...] hierarchy) Jovita Ovalle Adult Child Health Test Tube Maker resentative (appointed verbally by patient or by statute hierarchy) [email or web address] Care Teams Electrical Controls Technician Relationship Specialty Start Date End Date Gregory Rausch MD [address] [place] [address] PCP - General Family Medicine 02/12/20 documented as of this encounter
--- OUTSIDE RECORDS SUMMARY | 2024-10-02 03:21 | External Medical Summary | Summary of Care ---
Author Name Unknown Organization [facility] Address [address] [place] [address] Phone [phone] Care Team Providers Care Work Ticket Distributor Name Role Phone Gregory Rausch MD Primary Care Provider [phone] Reason for Visit * Reason Onset Date Comments Advice 08/22/2024 Encounter Details Date Type Department Care Team (Late st Contact Info) Description 08/22/2024 Telephone Family Practice [facility] [address] [place] [address] Gregory Rausch MD [address] [place] [address] Advice Allergies Active Allergy Reactions Criticality Noted Date Comments Adhesive Tape 07/02/2017 Can tolerate band-aids Glycerin Other (Please comment) 03/12/2008 Topical agents with glycein-burning & itching Lactose 12/09/2014 Dairy - gas Lisinopril Cough 01/21/2010 Monosodium Glutamate Edema Other 03/12/2008 Hands and feet Penicillins Rash 11/14/2007 documented as of this encounter (statuses as of 08/28/2024) Medications aspirin enteric coated 81 MG TBECIndications:Ao rtic valve disorder Take 1 Tab by mouth daily. 90 Tab 11 09/30/19 19 Active AZO Cranberry 250-30 MG Oral Tablet Take 1 Tablet by mouth in the morning and 1 Tablet before bedtime. Active BD Glucose 5 GM Oral Tablet Chewable (Glucose)Indicatio ns:DM type 2, not at goal ([facility]) 3 every 15 minutes until glucose [...] heart failure with preserved ejection fraction (HFpEF) ([facility]) Take 1 Tablet by mouth in the morning and 1 Tablet before bedtime. 180 Tablet 3 01/22/20 24 Active BD Pen Needle Short U/F 31G X 8 MMIndications:Type 2 diabetes mellitus with hemoglobin A1c goal of less than 7.0% ([facility]),Type 2 diabetes mellitus with stage 3a chronic kidney disease, with long-term current use of insulin ([facility]) Use with insulin 4 times daily [...] hemoglobin A1c goal of less than 7.0% ([facility]) Use up to 50 units per [...] ns:Heart failure, systolic, due to idiopathic cardiomyopathy ([facility]),S/P aortic valve replacement,HTN, goal below 140/80,Dyslipidemi a, [...] hemoglobin A1c goal of less than 7.0% ([facility]),Type 2 diabetes mellitus with stage 3a chronic kidney disease, with long-term current use of insulin ([facility]) Inject 36 Units under the skin [...] bedtime. 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 12/16/2019 Assessment & [...] as of this encounter (statuses as of 08/28/2024) Resolved Problems Problem Noted Date Diagnosed Date [...] 12/21/2016 Diabetes mellitus 01/05/2014 12/21/2016 LEYVA RESEARCH OTHER*[id number] 01/05/2014 12/21/2016 Axillary pain 11/03/2013 12/21/2016 Obesity, [...] 09/201008/26/2011 12/21/2016 FOLLOWING SURGERY, [facility]PEC[facility]25[facility]) 08/26/2011 12/21/2016 ADVANCE DIRECTIVE INFORMATION 04/17/2011 12/21/2016 Overview (01/21/2010): Yes, Patient instructed to provide copy of advance directive for provider to review and to be scanned into Electronic Medical Record ADVANCE DIRECTIVE INFORMATION 03/01/2011 12/21/2016 Overview (03/01/2011): Yes, Patient instructed to provide copy of advance directive for provider to review and to be scanned into Electronic Medical Record [facility] V710 Clinical Trial*[id number] 12/22/2010 04/14/2011 S/P aortic valve replacement 12/01/2010 08/26/2011 S/P AORTIC VALVE REPLACEMENT - #25 pericardial Mc valve 11/01/2010 06/28/2018 Overview (11/02/2010): Aortic valve replacement with #25 pericardial Mc valve, model 2800TFX, serial number [id number] (Dr. Walker) [facility] V710 Clinical Trial*[id number] 10/18/2010 11/21/2010 Type 2 diabetes mellitus wit [...] as of this encounter (statuses as of 08/28/2024) Immunizations Name Administration Dates Next Due COVID-19 mRNA, LNP-s, No Pre serve, 2-Dose Series (Moderna) 10/25/2021,02/16/2021,01/18/2021 HEP A - Hepatitis A (Adult > 18 yrs) 06/07/2018, 12/05/2017 Hepatitis B, 20+ yrs 06/07/2018,01/08/20 18,12/05/2017,06/15,10/27/2013,09/12/2013 PPD 10/26/2019,10/17/2019 Pneumococcal Conjugate Vacci ne, 20-valent ([id number]) 06/22/2023 Pneumococcal Polysaccharide PPV23 (Pneumovax) 01/02/2008 Seasonal [...] Industry Job Start 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 Patient informed letter was completed-requested a copy be mailed. Letter placed to go out in mail. No further questions at this time. * Telephone Encounter - Aaliyah Welch LPN - 08/26/2024 5:17 PM EST Letter written. Called patient-need to know if she would like letter mailed, faxed or she can pick it up in the office. Left message for patient to return call to nurse line. * Telephone Encounter - Gregory Rausch MD - 08/24/2024 12:28 PM EST yes * Telephone Encounter - Angelica Yadav LPN - 08/22/2024 3:57 PM EST Please advise. Ok for letter? * Telephone Encounter - Mary Anne Pratt OSA - 08/22/2024 11:41 AM EST Pt called and would like to know if can give her a letter for emotional support animal. Pt just got a cat and she needs a letter to keep it in the apartment. documented in this encounter Plan of Treatment Upcoming Encounters Date Type Department Care Team (Late st Contact Info) Description 08/29/2024 9:10 AM EST Telemedicine Pharmacy, [facility] [address] [facility] [place] [address] Pharmacist1, [facility] [address] [facility] [place] [address] 09/01/2024 9:20 AM EST Office Visit Podiatry [facility] [address] [facility] [place] [address] Valerie Aguilar, [address] [place] [address] 09/09/2024 10:00 AM EST Scheduled Telephone [facility], [facility] [address] [facility] [place] [address] Lakesha King RDN [address] [address] 11/03/2024 11:00 AM EST Office Visit Sleep Disorders Ctr [facility] [address] [facility] [place] [phone] Christina Birch, [address] [place] [address] 11/04/2024 9:30 AM EST Office Visit Gastroenterology, [facility] [address] [place] [address] Tia Taylor CRNP [address] [place] [address] 01/09/2025 11:15 AM EDT Office Visit Ophthalmology, [facility] [address] [place] [address] Ramsey Burnett DO [address] [place] [address] 01/26/2025 11:40 AM EDT Office Visit Nephrology, [facility] [address] [facility] [place] [address] Fidelina Baumann MD [address] [place] [address] Scheduled Procedures Name Priority Associated Diagnoses Date/Ti [...] 10/25/2021, 02/16/2021, 01/18/2021 CKD PHOS USE SMARTSET 42316 06/18/202405/26, 06/16/2023, 06/15/2023, Additional history exists HbA1c 08/01/2024 01/30/2024, 08/25, 07/31/2023, Additional history exists Diabetic Eye Exam 09/13/2024 09/13/2023, , 09/13/2023, Additional history exists B-12 09/18/2024 09/18/2023, 08/24, 2020, Additional history exists GFR 11/01/2024 05/01/2024, 12/23, 10/15/2023, Additional history exists Albumin/Creatinine Ratio 01/07/2025 024, 03/09/2023, 12/22/2022, Additional history exists CKD HGB USE SMARTSET 59737 01/07/202501/07, 01/08/2024, 10/15/2023, Additional history exists TSH [...] this encounter Medical Devices Implanted Type Area Technology Coach Device Identifier Shelf Expiration Date Model / Serial / Lot Cath Roselia Single Lumen - [id number] Implanted:Qty : 1 on 03/12/2008 at OR [facility] Left: Chest [employer] *DO NOT USE* 07/25/2012 21-4053-24 / / [id number] Sut Steel 6 M654g - [id number] Implanted:Qty : 1 on 11/01/2010 at OR [facility] N/A: Chest DO NOT USE M654G / / Sut Steel 6 M654g - [id number] Implanted:Qty : 1 on 11/01/2010 at OR [facility] N/A: Chest DO NOT USE M654G / / Valve Tarsha Aortic [id number] - [id number] Implanted:Qty : 1 on 11/01/2010 at OR [facility] N/A: Heart [employer] DANIEL 05/20/2012 2800TFX-25 / / [id number] Description:[email or web address] Mesh Soft [id number] - [id number] Implanted:Qty : 1 on 10/10/2019 by Gigi Hendrickson MD at OR [facility] N/A: Abdomen CR BARD : DAVOL [id number] 05/21/2024 [id number] / / [id number] Lens 22.5 Sn60wf - [id number] - [id number] Implanted:Qty : 1 on 09/15/2020 by Renaldo Cook, Cece Acosta MD at [facility] Right: Eye IVA : SURGICAL [id number] 05/13/2025 SN60 WF.225 / [id number] / [id number] Lens 21.5 Sn60wf - [id number] - [id number] Implanted:Qty : 1 on 12/19/2023 by Ramsey Burnett DO at OR [facility] Left: Eye IVA : SURGICAL 12/03/2024 SN60WF.2 15 / [id number] / documented as of this encounter [...] statute hierarchy) Jovita Ovalle Adult Child Health Waterproofer Helper resentative (appointed verbally by patient or by statute hierarchy) [email or web address] Care Teams Work Ticket Distributor Relationship Specialty Start Date End Date Gregory Rausch MD [address] [place] [address] PCP - General Family Medicine 02/12/20 documented as of this encounter
--- OUTSIDE RECORDS SUMMARY | 2024-10-02 03:21 | External Medical Summary | Summary of Care ---
Author Name Unknown Organization [facility] Address [address] [place] [address] Phone [phone] Care Team Providers Care Receptionist Scheduler Name Role Phone Gregory Rausch MD Primary Care Provider [phone] Reason for Visit * Reason Comments Diabetes Follow-Up Dosage Adjustment Via Phone (anticoag Cl inic) Encounter Details Date Type Department Care Team (Late st Contact Info) Description 08/29/2024 9:10 AM [facility] Telemedicine Pharmacy, [facility] [address] [facility] [place] [address] Pharmacist1, [facility] [address] [facility] [place] [address] Type 2 diabetes mellitus with hemoglobin A1c goal of less than 8.0% ([facility])*; Type 2 diabetes mellitus with stage 3a chronic kidney disease, with long-term current use of insulin ([facility]) Allergies Active Allergy Reactions Criticality Noted Date Comments Adhesive Tape 07/02/2017 Can tolerate band-aids Glycerin Other (Please comment) 03/12/2008 Topical agents with glycein-burning & itching Lactose 12/09/2014 Dairy - gas Lisinopril Cough 01/21/2010 Monosodium Glutamate Edema Other 03/12/2008 Hands and feet Penicillins Rash 11/14/2007 documented as of this encounter (statuses as of 09/02/2024) Medications aspirin enteric coated 81 MG TBECIndications:Ao rtic valve disorder Take 1 Tab by mouth daily. 90 Tab 11 09/30/19 19 Active AZO Cranberry 250-30 MG Oral Tablet Take 1 Tablet by mouth in the morning and 1 Tablet before bedtime. Active BD Glucose 5 GM Oral Tablet Chewable (Glucose)Indicatio ns:DM type 2, not at goal ([facility] [...] goal of less than 7.0% ([facility]) Use up to 50 units per [...] ns:Heart failure, systolic, due to idiopathic cardiomyopathy ([facility]),S/P aortic valve replacement,HTN, goal below 140/80,Dyslipidemi [...] bedtime. 60 Tablet 08/12/20 24 Active Klayesta 720350 UNIT/GM External Powder (Nystatin)Indicati ons:Candidal intertrigo APPLY [...] as of this encounter (statuses as of 09/02/2024) Active Problems Problem Noted Date Diagnosed Date [...] eye 09/28/2020 Coronary artery disease invo lving [place] coronary artery of [place] heart without angina pectoris 12/16/2019 Assessment & [...] as of this encounter (statuses as of 09/02/2024) Resolved Problems Problem Noted Date Diagnosed Date [...] 12/21/2016 Diabetes mellitus 01/05/2014 12/21/2016 LEYVA RESEARCH OTHER*[id number] 01/05/2014 12/21/2016 Axillary pain 11/03/2013 12/21/2016 Obesity, [...] Medical Record [facility] V710 Clinical Trial*[id number] 12/22/2010 04/14/2011 S/P aortic valve replacement 12/01/2010 08/26/2011 S/P AORTIC VALVE REPLACEMENT - #25 pericardial Mc valve 11/01/2010 06/28/2018 Overview (11/02/2010): Aortic valve replacement with #25 pericardial Mc valve, model 2800TFX, serial number [id number] (Dr. Walker) [facility] V710 Clinical Trial*[id number] 10/18/2010 11/21/2010 Type 2 diabetes mellitus wit [...] as of this encounter (statuses as of 09/02/2024) Immunizations Name Administration Dates Next Due COVID-19 mRNA, LNP-s, No Pre serve, 2-Dose Series (Moderna) 10/25/2021,02/16/2021,01/18/2021 HEP A - Hepatitis A (Adult > 18 yrs) 06/07/2018, 12/05/2017 Hepatitis B, 20+ yrs 06/07/2018,01/08/20 18,12/05/2017,06/15,10/27/2013,09/12/2013 PPD 10/26/2019,10/17/2019 Pneumococcal Conjugate Vacci ne, 20-valent ([id number]) 06/22/2023 Pneumococcal Polysaccharide PPV23 (Pneumovax) 01/02/2008 Seasonal [...] No 04/08/2024 Does the household have a [facility] source of income? 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 Tried calling at 11:07 AM and no answer. No return call by 09/02/2024 at 7:15 AM Patient presents for return diabetic visit. DIABETES: Current diabetic medications: Ozempic 2mg every Sunday Omnipod Insulin Pump (Serial Number: need to get) Insulin: Novolog Basal Rate: 1.5units/hour Bolus: using carb counting Bolus Calculator: on and using ICR: 25 ISF: 25 Blood Glucose Goal Limits: 70-180 Bolus Calculator: Target B Correct above: 180 Minimum B Active Insulin Time: 2 hours Medication Injection Site: Abdomen FOLLOW UP: Phone call follow up in 5 days Visit date not found Neeraj Romero RPh, CDE Clinical Pharmacist - Catalog Specialist Medication Therapy Management Clinic 08/29/2024, 9:11 AM documented in this encounter Plan of Treatment Upcoming Encounters Date Type Department Care Team (Late st Contact Info) Description 09/03/2024 1:00 PM EST Telemedicine Pharmacy, [facility] [place] [address] [facility] [place] [address] Pharmacist1, [facility] [address] [facility] [place] [address] 09/09/2024 10:00 AM EST Scheduled Telephone [facility], [facility] [address] [facility] [place] [address] Lakesha King, RDN [address] [facility] [place] [address] 11/03/2024 11:00 AM EST Office Visit Sleep Disorders Ctr [facility] [address] [facility] [place] [phone] Christina Birch, DO [address] [place] [address] 11/04/2024 9:30 AM EST Office Visit Gastroenterology, [facility] [address] [facility] [place] [address] Tia Taylor CRNP [address] [place] [address] 01/09/2025 11:15 AM EDT Office Visit Ophthalmology, [facility] [address] [facility] [place] [address] Ramsey Burnett DO [address] [facility] [place] [address] 01/26/2025 11:40 AM EDT Office Visit Nephrology, [facility] [address] [facility] [place] [address] Fidelina Baumann MD [address] [facility] [place] [address] Scheduled Procedures Name Priority Associated Diagnoses Date/Ti [...] 10/25/2021, 02/16/2021, 01/18/2021 CKD PHOS USE SMARTSET 46028 06/18/202405/26, 06/16/2023, 06/15/2023, Additional history exists HbA1c 08/01/2024 01/30/2024, 08/25, 07/31/2023, Additional history exists Diabetic Eye Exam 09/13/2024 09/13/2023, , 09/13/2023, Additional history exists B-12 09/18/2024 09/18/2023, 08/24, 2020, Additional history exists GFR 11/01/2024 05/01/2024, 12/23, 10/15/2023, Additional history exists Albumin/Creatinine Ratio 01/07/2025 024, 03/09/2023, 12/22/2022, Additional history exists CKD HGB USE SMARTSET 06675 01/07/202501/07, 01/08/2024, 10/15/2023, Additional history exists TSH [...] this encounter Medical Devices Implanted Type Area Pharmacovigilance Specialist Device Identifier Shelf Expiration Date Model / Serial / Lot Cath Roselia Single Lumen - [id number] Implanted:Qty : 1 on 03/12/2008 at OR [facility] Left: Chest [facility] *DO NOT USE* 07/25/2012 21-4053-24 / / [id number] Sut Steel 6 M654g - [id number] Implanted:Qty : 1 on 11/01/2010 at OR [facility] N/A: Chest DO NOT USE M654G / / Sut Steel 6 M654g - [id number] Implanted:Qty : 1 on 11/01/2010 at OR [facility] N/A: Chest DO NOT USE M654G / / Valve Tarsha Aortic [id number] - [id number] Implanted:Qty : 1 on 11/01/2010 at OR [facility] N/A: Heart [employer] 05/20/2012 2800TFX-25 / / [id number] Description:[email or web address] Mesh Soft 34d65xx - [id number] Implanted:Qty : 1 on 10/10/2019 by Gigi Hendrickson MD [place] [facility] [place]/A: Abdomen CR BARD : DAVOL [id number] 05/21/2024 [id number] / / [id number] Lens 22.5 Sn60wf - [id number] - [id number] Implanted:Qty : 1 on 09/15/2020 by Cece Roland MD at OR [facility] Right: Eye IVA : SURGICAL [id number] 05/13/2025 SN60 WF.225 / [id number] / [id number] Lens 21.5 Sn60wf - [id number] - [id number] Implanted:Qty : 1 on 12/19/2023 by Ramsey Burnett DO at OR [facility] Left: Eye IVA : SURGICAL 12/03/2024 SN60WF.2 15 / [id number] / documented as of this encounter [...] valve replaced by other means Atherosclerosis of [place] coronary artery of [place] heart without angina pectoris Schizoaffective disorder, bipolar type (HCC) Schizoaffective disorder, unspecified condition LEYVA (nonalcoholic steatohepatitis) Other chronic nonalcoholic liver disease Type 2 diabetes mellitus with diabetic mononeuropathy, with long-term current use of insulin (HCC)- Primary Atherosclerosis of [place] coronary artery of [place] heart without angina pectoris Hypertensive heart and [...] of insulin (HCC) Coronary artery disease involving [place] coronary artery of [place] heart without angina pectoris HTN, goal below [...] current use of insulin ([facility]) Type 2 diabetes mellitus with both eyes affected by mild nonproliferative retinopathy and macular edema, with long-term current use of insulin ([facility]) Hypertensive kidney disease with stage 3a chronic kidney disease (HCC) Mood disorder (HCC) Unspecified episodic mood disorder Type 2 diabetes mellitus with hemoglobin A1c goal of less than 8.0% ([facility])- Primary Type 2 diabetes mellitus with stage 3a chronic kidney disease, with long-term current use of insulin ([facility]) documented in this encounter Advance Directives [...] statute hierarchy) Jovita Ovalle Adult Child Health Hazardous Waste Remover resentative (appointed verbally by patient or by statute hierarchy) Care Teams Receptionist Scheduler Relationship Specialty Start Date End Date Gregory Rausch MD [address] [place] [address] PCP - General Family Medicine 02/12/20 documented as of this encounter
--- OUTSIDE RECORDS SUMMARY | 2024-10-02 03:21 | External Medical Summary | Summary of Care ---
Author Name Unknown Organization [facility] Address [address] [place] [address] Phone [phone] Care Team Providers Care Exercise Instruct Name Role Phone Gregory Rausch MD Primary Care Provider [phone] Reason for Visit * Reason Comments eRx-Medication Refill Encounter Details Date Type Department Care Team (Late st Contact Info) Description 08/19[facility] [address] [place] [address] Cinthia Mcgowan PA-C [address] [place] [address] Type 2 diabetes mellitus with hemoglobin A1c goal of less than 7.0% ([facility])* Allergies Active Allergy Reactions Criticality Noted Date Comments Adhesive Tape 07/02/2017 Can tolerate band-aids Glycerin Other (Please comment) 03/12/2008 Topical agents with glycein-burning & itching Lactose 12/09/2014 Dairy - gas Lisinopril Cough 01/21/2010 Monosodium Glutamate Edema Other 03/12/2008 Hands and feet Penicillins Rash 11/14/2007 documented as of this encounter (statuses as of 08/20/2024) Medications aspirin enteric coated 81 MG TBECIndications:Ao rtic valve disorder Take 1 Tab by mouth daily. 90 Tab 11 09/30/19 19 Active AZO Cranberry 250-30 MG Oral Tablet Take 1 Tablet by mouth in the morning and 1 Tablet before bedtime. Active BD Glucose 5 GM Oral Tablet Chewable (Glucose)Indicatio ns:DM type 2, not at goal ([facility]) 3 every 15 minutes until [...] ns:Heart failure, systolic, due to idiopathic cardiomyopathy ([facility]),S/P aortic valve replacement,HTN, goal below 140/80,Dyslipidemi a, [...] before bedtime. 60 Tablet 08/12/20 24 Active NovoLOG FlexPen 100 UNIT/ML Subcutaneous Solution Pen-injector (insulin aspart)Indications :Type 2 diabetes mellitus with hemoglobin A1c goal of less than 7.0% (HCC) INJECTED UNDER THE SKIN BEFORE MEALS, 3 TIMES PER DAY: 2 UNITS PER 50 WHEN GLUCOSE IS OVER 200 UNITS. TDD: 50. ICD10: E11.9. 45 mL 1 08/20/20 24 Active documented as of this encounter (statuses as of 08/20/2024) Active Problems Problem Noted Date Diagnosed Date [...] eye 09/28/2020 Coronary artery disease invo lving huslia coronary artery of huslia heart without angina pectoris 12/16/2019 Assessment & [...] as of this encounter (statuses as of 08/20/2024) Resolved Problems Problem Noted Date Diagnosed Date [...] 12/21/2016 Diabetes mellitus 01/05/2014 12/21/2016 LEYVA RESEARCH OTHER*[id number] 01/05/2014 12/21/2016 Axillary pain 11/03/2013 12/21/2016 Obesity, [...] scanned into Electronic Medical Record [facility] V710 Clinical Trial*[id number] 12/22/2010 04/14/2011 S/P aortic valve replacement 12/01/2010 08/26/2011 S/P AORTIC VALVE REPLACEMENT - #25 pericardial Mc valve 11/01/2010 06/28/2018 Overview (11/02/2010): Aortic valve replacement with #25 pericardial Mc valve, model 2800TFX, serial number [id number] (Dr. Walker) [employer] V710 Clinical Trial*[id number] 10/18/2010 11/21/2010 Type 2 diabetes mellitus wit [...] as of this encounter (statuses as of 08/20/2024) Immunizations Name Administration Dates Next Due COVID-19 mRNA, LNP-s, No Pre serve, 2-Dose Series (Moderna) 10/25/2021,02/16/2021,01/18/2021 HEP A - Hepatitis A (Adult > 18 yrs) 06/07/2018, 12/05/2017 Hepatitis B, 20+ yrs 06/07/2018,01/08/20 18,12/05/2017,06/15,10/27/2013,09/12/2013 PPD 10/26/2019,10/17/2019 Pneumococcal Conjugate Vacci ne, 20-valent (Kiwoins19) 06/22/2023 Pneumococcal Polysaccharide PPV23 (Pneumovax) 01/02/2008 Seasonal [...] Industry Job Start 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 TDD: 50. ICD10: E11.9. * Telephone Encounter - Antoinette Sam CMA - 08/20/2024 11:25 AM EST This medication has been pended for renewal in accordance with our office medication renewal policy. Pending Prescriptions: Disp Refills NovoLOG FlexPen 100 UNIT/ML Subcutaneous *45 mL 1 Sig: INJECTED UNDER THE SKIN BEFORE MEALS, 3 TIMES PER DAY: 2 UNITS PER 50 WHEN GLUCOSE IS OVER 200 UNITS. TDD: 50. ICD10: E11.9. 05/05/2021 (in office), 07/27/2023 (telemedicine) Visit date not found If no future appointments scheduled, and last appointment is greater than a year ago, please schedule patient for a follow-up appointment Last date the medication was ordered: 03/31/2024 Pharmacy: [id number] [place] Labs: Lab Results Component Value Date/Time CREAT GFR 0.65 07/02/2017 12:19 PM CREATININE - [facility] 1.0 05/01/2024 11:08 AM CREATININE - [facility] 0.80 08/02/2023 12:00 AM CREATININE - [facility] 0.88 06/26/2023 05:43 PM CREATININE - [facility] 1.2 (H) 09/07/2020 10:58 AM CREATININE POCT - [facility] 0.9 10/15/2017 12:22 PM CREATININE, RANDOM URINE - [facility] 58 01/08/2024 12:29 PM CREATININE, RANDOM URINE - [facility] 140 03/21/2017 10:41 AM No components found for: "E G" documented in this encounter Plan of Treatment Upcoming Encounters Date Type Department Care Team (Late st Contact Info) Description 08/29/2024 9:10 AM EST Telemedicine Pharmacy, [facility] [address] [facility] [address] Pharmacist1, [facility] [address] [facility] [address] 09/01/2024 9:20 AM EST Office Visit Podiatry [address] [place] [address] Valerie Aguilar DPM [address] [place] [address] [place] [address] 09/09/2024 10:00 AM EST Scheduled Telephone [facility] [place] [address] [facility] [place] [address] Lakesha King RDN [address] [place] [address] 11/03/2024 11:00 AM EST Office Visit Sleep Disorders Ctr [facility] [address] [facility] [place] [phone] Christina Birch, DO [address] [place] [address] 11/04/2024 9:30 AM EST Office Visit Gastroenterology, [facility] [address] [place] [address] Tia Taylor CRNP [address] [place] [address] 01/09/2025 11:15 AM EDT Office Visit Ophthalmology, [place] [address] [place] [address] Ramsey Burnett DO [address] [place] [address] 01/26/2025 11:40 AM EDT Office Visit Nephrology, [facility] [address] [facility] [place] [address] Fidelina Baumann MD [address] [place] [address] Scheduled Procedures Name Priority Associated Diagnoses Date/Ti [...] 10/25/2021, 02/16/2021, 01/18/2021 CKD PHOS USE SMARTSET 95399 06/18/202405/26, 06/16/2023, 06/15/2023, Additional history exists HbA1c 08/01/2024 01/30/2024, 08/25, 07/31/2023, Additional history exists Diabetic Eye Exam 09/13/2024 09/13/2023, , 09/13/2023, Additional history exists B-12 09/18/2024 09/18/2023, 08/24, 2020, Additional history exists GFR 11/01/2024 05/01/2024, 12/23, 10/15/2023, Additional history exists Albumin/Creatinine Ratio 01/07/2025 024, 03/09/2023, 12/22/2022, Additional history exists CKD HGB USE SMARTSET 61382 01/07/202501/07, 01/08/2024, 10/15/2023, Additional history exists TSH [...] this encounter Medical Devices Implanted Type Area Muffler Tender Device Identifier Shelf Expiration Date Model / Serial / Lot Cath Roselia Single Lumen - [id number] Implanted:Qty : 1 on 03/12/2008 at OR [facility] Left: Chest [employer] *DO NOT USE* 07/25/2012 21-4053-24 / / [id number] Sut Steel 6 M654g - [id number] Implanted:Qty : 1 on 11/01/2010 at OR [facility] N/A: Chest DO NOT USE M654G / / Sut Steel 6 M654g - [id number] Implanted:Qty : 1 on 11/01/2010 at OR [facility] N/A: Chest DO NOT USE M654G / / Valve Tarsha Aortic [id number] - [id number] Implanted:Qty : 1 on 11/01/2010 at OR [facility] N/A: Heart MC [employer] DANIEL 05/20/2012 2800TFX-25 / / [id number] Description:[email or web address] Mesh Soft 26q23ip - [id number] Implanted:Qty : 1 on 10/10/2019 by Gigi Hendrickson [place] [facility]: Abdomen CR BARD : DAVOL [id number] 05/21/2024 [id number] / / [id number] Lens 22.5 Sn60wf - [id number] - [id number] Implanted:Qty : 1 on 09/15/2020 by Renaldo Cook, Cece Acosta MD at [facility] Right: Eye IVA : SURGICAL [id number] 05/13/2025 SN60 WF.225 / [id number] / [id number] Lens 21.5 Sn60wf - [id number] - [id number] Implanted:Qty : 1 on 12/19/2023 by Ramsey Burnett DO at OR [facility] Left: Eye IVA : SURGICAL 12/03/2024 SN60WF.2 15 / [id number] / documented as of this encounter [...] valve replaced by other means Atherosclerosis of huslia coronary artery of huslia heart without angina pectoris Schizoaffective disorder, bipolar type (HCC) Schizoaffective disorder, unspecified condition LEYVA (nonalcoholic steatohepatitis) Other chronic nonalcoholic liver disease Type 2 diabetes mellitus with diabetic mononeuropathy, with long-term current use of insulin (HCC)- Primary Atherosclerosis of huslia coronary artery of huslia heart without angina pectoris Hypertensive heart and [...] of insulin (HCC) Coronary artery disease involving huslia coronary artery of huslia heart without angina pectoris HTN, goal below [...] goal of less than 7.0% ([facility])- Primary documented in this encounter [...] statute hierarchy) Jovita Ovalle Adult Child Health Staffing Branch Manager resentative (appointed verbally by patient or by statute hierarchy) [email or web address] Care Teams Exercise Instruct Relationship Specialty Start Date End Date Gregory Rausch MD [address] [place] [address] PCP - General Family Medicine 02/12/20 documented as of this encounter
--- OUTSIDE RECORDS SUMMARY | 2024-10-02 03:21 | External Medical Summary | Summary of Care ---
Author Name Unknown Organization [facility] Address [address] [place] [address] Phone [phone] Care Team Providers Care Editorial Clerk Name Role Phone Gregory Rausch MD Primary Care Provider [phone] Reason for Visit * Reason Onset Date Comments Medical Nutrition Therapy 09/09/2024 Encounter Details Date Type Department Care Team (Latest Contact Info) Description 09/09/2024 10:00 AM EST Scheduled Telephone [facility], [facility] [address] [place], [place] [id number] Lakesha King, RDN [address], [place] [id number] Type 2 diabetes mellitus with hemoglobin A1c goal of less than 8.0% ([facility])* Allergies Active Allergy Reactions Criticality Noted Date Comments Adhesive Tape 07/02/2017 Can tolerate band-aids Glycerin Other (Please comment) 03/12/2008 Topical agents with glycein-burning & itching Lactose 12/09/2014 Dairy - gas Lisinopril Cough 01/21/2010 Monosodium Glutamate Edema Other 03/12/2008 Hands and feet Penicillins Rash 11/14/2007 documented as of this encounter (statuses as of 09/09/2024) Medications aspirin enteric coated 81 MG TBECIndications:Ao [...] bedtime. 60 Tablet 08/12/20 24 Active Klayesta 470244 UNIT/GM External Powder (Nystatin)Indicati ons:Candidal intertrigo APPLY [...] as of this encounter (statuses as of 09/09/2024) Active Problems Problem Noted Date Diagnosed Date [...] eye 09/28/2020 Coronary artery disease invo lving standing rock coronary artery of standing rock heart without angina pectoris 12/16/2019 Assessment & [...] as of this encounter (statuses as of 09/09/2024) Resolved Problems Problem Noted Date Diagnosed Date [...] 12/21/2016 Diabetes mellitus 01/05/2014 12/21/2016 LEYVA RESEARCH OTHER*[id number] 01/05/2014 12/21/2016 Axillary pain 11/03/2013 12/21/2016 Obesity, [...] cath 09/201008/26/2011 12/21/2016 FOLLOWING SURGERY, UNSPECIFI ED ([facility] 08/25/2011) 08/26/2011 12/21/2016 ADVANCE DIRECTIVE INFORMATION 04/17/2011 12/21/2016 Overview (01/21/2010): Yes, Patient instructed to provide copy of advance directive for provider to review and to be scanned into Electronic Medical Record ADVANCE DIRECTIVE INFORMATION 03/01/2011 12/21/2016 Overview (03/01/2011): Yes, Patient instructed to provide copy of advance directive for provider to review and to be scanned into Electronic Medical Record [facility] V710 Clinical Trial*[id number] 12/22/2010 04/14/2011 S/P aortic valve replacement 12/01/2010 08/26/2011 S/P AORTIC VALVE REPLACEMENT - #25 pericardial Mc valve 11/01/2010 06/28/2018 Overview (11/02/2010): Aortic valve replacement with #25 pericardial Mc valve, model 2800TFX, serial number [id number] (Dr. Walker) [facility] V710 Clinical Trial*[id number] 10/18/2010 11/21/2010 Type 2 diabetes mellitus wit [...] as of this encounter (statuses as of 09/09/2024) Immunizations Name Administration Dates Next Due COVID-19 mRNA, LNP-s, No Pre serve, 2-Dose Series (Moderna) 10/25/2021,02/16/2021,01/18/2021 HEP A - Hepatitis A (Adult > 18 yrs) 06/07/2018, 12/05/2017 Hepatitis B, 20+ yrs 06/07/2018,01/08/20 18,12/05/2017,06/15,10/27/2013,09/12/2013 PPD 10/26/2019,10/17/2019 Pneumococcal Conjugate Vacci ne, 20-valent (Cxsrmmy35) 06/22/2023 Pneumococcal Polysaccharide PPV23 (Pneumovax) 01/02/2008 Seasonal [...] No 04/08/2024 Does the household have a [facility] source of income? 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 Reason for nutrition follow up Type 2 Diabetes Patient reports she did not receive information previously provided. Patient denies any issues related to changes in wt. Wt Readings from Last 3 Encounters: 08/12/24 69.4 kg (153 lb) 07/09/24 70.8 kg (156 lb) 06/30/24 70.8 kg (156 lb) SMBG with Dexcom Followed by MTM; Seen 08/19/2024 for insulin pump training with Omnipod 5 Insulin Pump. See CGM report that date 99% BG readings high, 87% very high, 1% in range. MTM follow up 09/03/2024 Previous Nutrition Goals: Patient will choose Mom's Meal for evening meal to avoid skipping dinner and consume left overs forlunch Patient will inquire on increasing Mom's meals back to 14 meals per week. Currently receiving 14 meals every 2 weeks. Currently getting 14 meals per week. More consistent with lunch and dinner. Continues to skip breakfast. Patient will dilute Gatorade with 50% water. Continues to drink regular Gatorade - will drink 1, 32oz total (improved from 5, 32 oz per day reported on initial assessment). Continues to make own icetea with (tea bag) sugar free crystal light. Pt has seen improvement with BG "not as high as it was" RDN continue to promote sugar free beverages, nutrition education reinforced and provided. Mailing Plate Method to confirmed listed address to review next phone call. Patient will cook about2 meals per week with left overs. * Patient reports she did not receive. Verbally reviewed with hertoday. Mailing second copy to confirmed address. Reinforced nutrition goals. Encouraged continued progress towards goals Follow up as scheduled. Encouraged pt to contact [facility] at [phone] for any non-emergent changes/concerns. BASIM Walter, ROBERT, LDN Clinical Dietitian [facility] documented in this encounter Plan of Treatment Upcoming Encounters Date Type Department Care Team (Late st Contact Info) Description 09/30/2024 11:10 AM EST Office Visit Pharmacy, [facility] [address] [facility] [place] [address] Pharmacist1, [facility] [address] [facility] [place] [address] 10/23/2024 9:30 AM EST Scheduled Telephone [facility], [facility] [address] [facility] [place] [address] Lakesha King RDN [address] [place] [address] 11/03/2024 11:00 AM EST Office Visit Sleep Disorders Ctr [facility] [address] [place] [phone] Christina Birch DO [address] [place] [address] 11/04/2024 9:30 AM EST Office Visit Gastroenterology, [facility] [address] [place] [address] Tia Taylor CRNP [address] [place] [address] 01/26/2025 11:40 AM EDT Office Visit Nephrology, [facility] [address] [facility] [place] [address] Fidelina Baumann MD [address] [facility] [place] [address] Scheduled Procedures Name Priority Associated Diagnoses Date/Ti [...] 10/25/2021, 02/16/2021, 01/18/2021 CKD PHOS USE SMARTSET 70427 06/18/202405/26, 06/16/2023, 06/15/2023, Additional history exists HbA1c 08/01/2024 01/30/2024, 08/25, 07/31/2023, Additional history exists Diabetic Eye Exam 09/13/2024 09/13/2023, , 09/13/2023, Additional history exists B-12 09/18/2024 09/18/2023, 08/24, 2020, Additional history exists GFR 11/01/2024 05/01/2024, 12/23, 10/15/2023, Additional history exists Albumin/Creatinine Ratio 01/07/2025 024, 03/09/2023, 12/22/2022, Additional history exists CKD HGB USE SMARTSET 29741 01/07/202501/07, 01/08/2024, 10/15/2023, Additional history exists TSH [...] this encounter Medical Devices Implanted Type Area Loin Trimmer Device Identifier Shelf Expiration Date Model / Serial / Lot Cath Roselia Single Lumen - [id number] Implanted:Qty : 1 on 03/12/2008 at OR [facility] Left: Chest [facility] *DO NOT USE* 07/25/2012 21-4053-24 / / [id number] Sut Steel 6 M654g - [id number] Implanted:Qty : 1 on 11/01/2010 at OR [facility] N/A: Chest DO NOT USE M654G / / Sut Steel 6 M654g - [id number] Implanted:Qty : 1 on 11/01/2010 at OR [facility] N/A: Chest DO NOT USE M654G / / Valve Tarsha Aortic [id number] - [id number] Implanted:Qty : 1 on 11/01/2010 at OR [facility] N/A: Heart [employer] DANIEL 05/20/2012 2800TFX-25 / / [id number] Description:[email or web address] Mesh Soft [id number] - [id number] Implanted:Qty : 1 on 10/10/2019 [place] Hendrickson [place] [facility] Abdomen CR BARD : DAVOL [id number] 05/21/2024 [id number] / / [id number] Lens 22.5 Sn60wf - [id number] - [id number] Implanted:Qty : 1 on 09/15/2020 by Renaldo Cook, Cece Acosta MD at [facility] Right: Eye IVA : SURGICAL [id number] 05/13/2025 SN60 WF.225 / [id number] / [id number] Lens 21.5 Sn60wf - [id number] - [id number] Implanted:Qty : 1 on 12/19/2023 by Ramsey Burnett DO at OR [facility] Left: Eye IVA : SURGICAL 12/03/2024 SN60WF.2 15 / [id number] / documented as of this encounter Visit Diagnoses Diagnosis Dysuria- Primary Atherosclerosis of aorta ([facility]) Atherosclerosis of aorta Type 2 diabetes mellitus with hemoglobin A1c goal of less than 7.0% ([facility]) DANYELLE on CPAP Obstructive sleep apnea (adult) (pediatric) Hypertensive heart and kidney disease with chronic diastolic congestive heart failure and stage 3a chronic kidney disease ([facility]) S/P TAVR (transcatheter aortic valve replacement) Heart valve replaced by other means Atherosclerosis of standing rock coronary artery of standing rock heart without angina pectoris Schizoaffective disorder, bipolar type ([facility]) Schizoaffective disorder, unspecified condition LEYVA (nonalcoholic steatohepatitis) Other chronic nonalcoholic liver disease Type 2 diabetes mellitus with diabetic mononeuropathy, with long-term current use of insulin ([facility])- Primary Atherosclerosis of standing rock coronary artery of standing rock heart without angina pectoris Hypertensive heart and [...] of insulin (HCC) Coronary artery disease involving standing rock coronary artery of standing rock heart without angina pectoris HTN, goal below [...] less than 8.0% ([facility])- Primary documented in this encounter [...] statute hierarchy) Jovita Ovalle Adult Child Health Checkering Machine Operator resentative (appointed verbally by patient or by statute hierarchy) Care Teams Editorial Clerk Relationship Specialty Start Date End Date Gregory Rausch MD [address] [place] [address] PCP - General Family Medicine 02/12/20 documented as of this encounter
--- OUTSIDE RECORDS SUMMARY | 2024-10-02 03:22 | External Medical Summary | Summary of Care ---
Author Name Unknown Organization [facility] Address [address] [place] [address] Phone [phone] Care Team Providers Care Vegetable Farmer Name Role Phone Gregory Rausch MD Primary Care Provider [phone] Reason for Referral * Evaluate & Treat - Unlimited Visits (Within 3 days (urgent)) - Authorized Specialty Diagnoses / Procedures Referred By Bruce wasserman Referred To Contact Podiatry Diagnoses Toenail deformity Jovita Luna CRNP [address] [place] [address] Phone: tel: fax: Referral ID Status Reason Start Date Expiration Date Visits Requested Visits Authorized [id number] Authorized Specialty Services Required 07/29/[phone] Question Answer Referral Priority Within 3 days (urgent) Where should this appointment be scheduled? [facility] Which condition are you referring this patient for? 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 90 Tab 11 019 Active AZO Cranberry 250-30 MG Oral Tablet Take 1 Tablet by mouth in the morning and 1 Tablet before bedtime. Active BD Glucose 5 GM Oral Tablet Chewable (Glucose)Indicati ons:DM type 2, not at goal (HCC) 3 every 15 minutes until glucose is > 100 mg/dL for hypoglycemia E11.9 100 Tab 3 021 Active OneTouch Verio w/Device Kit Use up to 4 times a day E11.9 1 Kit 022 Active OneTouch Delica Lancets 33G TEST 4 [...] times a day E11.9 100 Strip 11 Active Potassium Chloride Shannon ER 10 MEQ [...] insulin 4 times daily 400 Each 3 Active BD Insulin Syringe 25G X 1" 1 ML (Insulin Syringe-Needle U-100) Use daily with omnipod as directed DX E11.9 100 Each 5 024 Active Curity Alcohol Swabs Pad Use as directed as needed 200 Each 024 Active Aquaphor External Ointment Apply topically to affected area as needed for Dry Skin. Apply to face 420 g 024 Active Ammonium Lactate 12 % External Lotion (Lac-Hydrin) Apply to both feet once daily. 400 g 2 024 Active Insulin Aspart 100 UNIT/ML Injection Solution (NovoLOG)Indicati ons:Type 2 diabetes mellitus with hemoglobin A1c goal of less than 7.0% ([facility]) Use up to 50 units per day in Omnipod. 024 Active Loperamide HCl 2 MG Oral Capsule [...] mouth in the morning. 30 Capsule 1 024 Active Atorvastatin Calcium 40 MG Oral Tablet (Lipitor)Indicati ons:Heart failure, systolic, due to idiopathic cardiomyopathy ([facility]),S/P aortic valve replacement,HTN, goal below 140/80,Dyslipidem ia, goal LDL below 70 Take 1 tablet by mouth daily to prevent heart attack/stroke, protect kidney, and cholesterol 90 Tablet 024 Active Clopidogrel Bisulfate 75 MG Oral Tablet (pLAVix) Take 1 Tablet by mouth in the morning. 90 Tablet 024 Active Gabapentin 300 MG Oral Capsule (Neurontin) Take 1 Capsule by mouth in the morning and 1 Capsule at noon and 1 Capsule before bedtime. 90 Capsule 2 024 Active Levothyroxine Sodium 75 MCG Oral Tablet (Levoxyl)Indicati ons:Hypothyroidis m TAKE 1 TAB BY MOUTH DAILY FIRST THING IN AM, AT LEAST 30 MIN PRIOR TO BREAKFAST OR OTHER MEDICATIONS 90 Tablet 024 Active Meclizine HCl 25 MG Oral Tablet (Antivert)Indicat ions:Muscle tension headache Take 2 Tablets by mouth 2 times a day. 360 Tablet Active Ozempic (2 MG/DOSE) 8 MG/3ML Subcutaneous Solution Pen-injector (Semaglutide (2 MG/DOSE))Indicati ons:weekly on fridays Inject 2 mg under the skin once a week. 9 mL 1 024 Active Additional Information Patient taking differently:2 mg Subcutaneous QWEEK,Tuesdays, Indications: weekly on fridays, Reported on 08/12/2024 Butalbital-Aspiri n-Caffeine 50-325-40 MG Oral Capsule (Fiorinal)Indicat ions:Acute intractable tension-type headache Take 1 Capsule by mouth every 4 hours as needed for Headache. 30 Capsule 024 Active Fluticasone Propionate 50 MCG/ACT Nasal Suspension (Flonase)Indicati [...] the morning. 18 mL 3 024 Active Klayesta 665781 UNIT/GM External Powder (Nystatin)Indicat ions:Candidal intertrigo APPLY TOPICALLY TO AFFECTED AREA 3 TIMES A DAY 60 g 1 Active Metoprolol Tartrate 50 MG Oral Tablet (Lopressor)Indica tions:HTN, goal below 130/80 TAKE 1 TABLET BY MOUTH IN THE MORNING AND BEFORE BEDTIME 180 Tablet 3 Active Klor-Con M20 20 MEQ Oral Tablet Extended Release (Potassium Chloride ER) TAKE 1 TABLET BY MOUTH EVERY DAY IN THE MORNING 90 Tablet 3 Active Magnesium Oxide -Mg Supplement 400 (240 Mg) MG Oral Tablet (Mag-Ox)Indicatio ns:HTN, goal below 130/80,Chronic heart failure with preserved ejection fraction (HCC),Palpitation s,Hypomagnesemia One tablet by mouth daily in the morning 90 Tablet 3 Active Omnipod 5 G6 Intro (Gen 5) Kit Use as directed. Use to delivery insulin via insulin pump 1 Kit 5 024 2023 Discontinued Dificid 200 MG Oral Tablet (Fidaxomicin)Colleen cations:C. difficile colitis Take 1 Tablet by mouth in the morning and 1 Tablet before bedtime. 28 Tablet 024 2023 Discontinued Vancomycin HCl 125 MG Oral Capsule (Vancocin) TAKE 1 TABLET ORALLY 4 TIMES DAILY FOR 2 WKS, THEN 2 X/DAY X WK, THEN DAILY X 1 WK, THEN EVERY OTHER DAY FOR 8 WKS 100 Capsule 024 2023 Discontinued Doxycycline Hyclate 100 MG Oral CapsuleIndication s:Toenail deformity Take 1 Capsule by mouth in the morning and 1 Capsule before bedtime. Do all this for 7 days. Until gone.. 14 Capsule 024 2023 Discontinued documented as of this encounter (statuses as of 08/18/2024) Active Problems Problem Noted Date Diagnosed Date [...] eye 09/28/2020 Coronary artery disease invo lving [place] coronary artery of [place] heart without angina pectoris 12/16/2019 Assessment & [...] as of this encounter (statuses as of 08/18/2024) Resolved Problems Problem Noted Date Diagnosed Date [...] 12/21/2016 Diabetes mellitus 01/05/2014 12/21/2016 LEYVA RESEARCH OTHER*[id number] 01/05/2014 12/21/2016 Axillary pain 11/03/2013 12/21/2016 Obesity, [...] 09/201008/26/2011 12/21/2016 FOLLOWING SURGERY, UNSPECIFI ED ([facility] 08/25/2011) 08/26/2011 12/21/2016 ADVANCE DIRECTIVE INFORMATION 04/17/2011 [...] [facility] V710 Clinical Trial*[id number] 12/22/2010 04/14/2011 S/P aortic valve replacement 12/01/2010 08/26/2011 S/P AORTIC VALVE REPLACEMENT - #25 pericardial Mc valve 11/01/2010 06/28/2018 Overview (11/02/2010): Aortic valve replacement with #25 pericardial Mc valve, model 2800TFX, serial number [id number] (Dr. Walker) [facility] V710 Clinical Trial*[id number] 10/18/2010 11/21/2010 Type 2 diabetes mellitus wit [...] as of this encounter (statuses as of 08/18/2024) Immunizations Name Administration Dates Next Due COVID-19 mRNA, LNP-s, No Pre serve, 2-Dose Series (Moderna) 10/25/2021,02/16/2021,01/18/2021 HEP A - Hepatitis A (Adult > 18 yrs) 06/07/2018, 12/05/2017 Hepatitis B, 20+ yrs 06/07/2018,01/08/20 18,12/05/2017,06/15,10/27/2013,09/12/2013 PPD 10/26/2019,10/17/2019 Pneumococcal Conjugate Vacci ne, 20-valent ([id number]) 06/22/2023 Pneumococcal Polysaccharide PPV23 (Pneumovax) 01/02/2008 Seasonal [...] Industry Job Start Date Job End Date 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 [employer] Not on file Not on fi le Not on file 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 Not on file Not on file Not on file retired Not on file Not on file Not on file documented as of this encounter Last Filed Vital Signs Vital Sign Reading Time Taken Comments Blood Pressure 130/64 07/29/2024 1:08 PM EST Pulse 86 07/29/2024 1:08 PM EST Temperature 37 C (98.6 F) 07/29/2024 1:08 PM EST Respiratory Rate - - Oxygen Saturation 95% 07/29/2024 1:08 PM EST Inhaled Oxygen Concentration - - Weight - - Height - - Body Mass Index - - documented in this encounter Functional Status * Are you [...] Gisela Greer RN documented in this encounter Patient Instructions * Patient Instructions* Rufina Sinha TIM - 07/29/2024 1:10 PM SAMARA Diabetes: Keeping Feet Healthy Inspect your feet every day for signs of a problem. Diabetes can damage nerves in your feet and cause neuropathy. This condition makes it hard for you to feel injuries or sore spots. Diabetes can also change blood flow, making it harder for small problems, like a blister, to heal properly. In fact, minor injuries can quickly become serious infections that send you to the hospital. Practice self-care to protect your feet and keep them healthy. Take Special Care Inspect your feet daily for problems such as redness, blisters, cracks, dry skin, or numbness. Use a mirror to see the bottoms of your feet. Or, ask for help. Manage your diabetes. Monitor and control your blood sugar. Take all your medications as prescribed. Avoid walking barefoot, even indoors. Wash your feet with warm water and mild soap. Dry well, especially between toes. Dont treat corns or calluses yourself. Talk to your doctor or medicaid business analyst (a doctor who specializes in foot care) if you need assistance trimming your toenails. Use moisturizing cream or lotion if you have dry skin, but dont use it between toes. Dont use heating pads on your feet. If you have neuropathy, you could get a burn and not feel it. Stop smoking. Smoking restricts blood flow and can make it harder for wounds to heal. Have Regular Checkups Foot problems can develop quickly. So be sure to follow your healthcare teams schedule for regular checkups. During office visits, take off your shoes and socks as soon as you get in the exam room. Ask your healthcare provider to examine your feet for problems. This will make it easier to find and treat small skin irritations before they get worse. Regular checkups can also help keep track of the blood flow and feeling in your feet. If you have neuropathy, you may need to have checkups more often. Wear Proper Footwear Wearing proper footwear is very important. If areas of your feet have been damaged by too much pressure, your healthcare provider may recommend changing your footwear. In some cases, avoiding high heels or tight work boots may be all thats needed. Or, your healthcare provider may recommend special shoes or custom inserts. These help protect your feet and keep existing irritations from getting worse. If you need special footwear, ask your healthcare provider if you qualify for [employer] diabetic shoe program. Make Sure Shoes and Socks Fit Any pair of shoes--new or old--should feel comfortable as soon as you put them on. There shouldnt be any rubbing when you walk. Wear the right shoe for any activity. For instance, a running shoe is designed to keep your feet injury-free while jogging. Buy shoes at the end of the day, when your feet are larger. Make sure they provide support without feeling too loose. Make sure your socks fit, t oo. Wear soft, seamless, well-padded socks for activity. Cotton or microfiber socks are best to help to absorb sweat. To protect your feet, avoid shoes that are open-toed or open-heeled. If you have questions about what kinds of shoes and socks are best, talk to your healthcare team. Get Regular Exercise Regular exercise improves blood flow in your feet. It also increases foot strength and flexibility.Gentle exercises, like walking or riding a stationary bicycle, are best. You can also do special foot exercises. Just be sure to talk with your healthcare provider before starting any exercise program. Also mention if any exercise causes pain, redness, or other signs of foot problems. Note: If you have any kind of break in the skin of your foot or ankle, keep the area clean. Then call your doctor--especially if the area doesnt appear to be healing. [phone] [employer], [address] [place] [address], [place] [address]. All rights reserved. This information is not intended as a substitute for professional medical care. Always follow your healthcare professional's instructions. documented in this encounter Progress Notes * Jovita Luna CRNP - 07/29/2024 1:22 PM EST Images from the original note were not included. History of Present Illness Jovita Rose is a 63 year old female that presents for Acute (L foot big toe nail concern ) HPI Here for bleeding wound of L great toe. It fell off recently while showering. She can't recall any trauma to it. Physical Exam Vitals: 07/29/24 1308 Temp: 98.6 F (37 C) Pulse: 86 SpO2: 95% BP: 130/64 Physical Exam Vitals reviewed. Constitutional: General: She is not in acute distress. Musculoskeletal: Feet: Skin: General: Skin is warm and dry. Neurological: Mental Status: She is alert and oriented to person, place, and time. Psychiatric: Behavior: Behavior normal. Thought Content: Thought content normal. Assessment and Plan Toenail deformity - XR TOES 2 OR MORE VIEWS - PODIATRY REFERRAL OP Type 2 diabetes mellitus with diabetic peripheral angiopathy without gangrene (HCC) - DIABETES FOOT EXAM - HEMOGLOBIN A1C; Future Wrap-Up Follow-up: Return if symptoms worsen or fail to improve. | Check-out note: Xray now Time: I spent a total of 20-29 minutes (exact time 20 mins) on the date of service in preparation, delivery, and documentation of the care provided to Jovita Rose excluding any time spent in the performance of separately billed services. * Rufina Sinha LPN - 07/29/2024 1:10 PM EST Socks and Shoes Removed for Annual Diabetic Foot Screening RIGHT FOOT: No Reddened, Cracking, Or Open Areas Noted. RIGHT Dorsalis Pedis Pulse: Palpable RIGHT Posterior Tibial Pulse: Palpable RIGHT Monofilament:Patient reports feeling monofilament pressure on plantar surface of foot LEFT FOOT: Area of Concern great toe nail removed, bloody. Based of greatr toe has thick callus. LEFT Dorsalis Pedis Pulse: Palpable LEFT Posterior Tibial Pulse: Palpable LEFT Monofilament:Patient reports difficulty feeling monofilament at Great toe- plantar surface and Third toe-plantar surface Do you need diabetic shoes: No DM Foot Exam completed today. Provider aware. Rufina Sinha LPN Hemoglobin a1c ordered today. Provider aware. Rufina Sinha LPN documented in this encounter Nursing Notes * Rufina Sinha LPN - 07/29/2024 1:06 PM EST The patient has been properly identified by confirmation of name and date of . Chief Complaint Patient presents with Acute L foot big toe nail concern Pt greater Left toe nail fell off after taking a shower the toe nail fell off. She now notices that it occasionally bleeds at times when she bumps it on anything. documented in this encounter Plan of Treatment Upcoming Encounters Date Type Department Care Team (Late st Contact Info) Description 08/19/2024 9:00 AM EST Office Visit Pharmacy, [facility] [address] [place] [address] Pharmacist1, [facility] [address] [place] [address] 09/01/2024 9:20 AM EST Office Visit Podiatry [facility] [address] [facility] [place] [address] Valerie Aguilar DPM [address] [place] [address] [place] [address] 09/09/2024 10:00 AM EST Scheduled Telephone [facility] [address] [facility] [place] [address] Fernando Lakesha Hussein, RDN [address] [place] [address] 11/03/2024 11:00 AM EST Office Visit [facility] [address] [facility] [place] [phone] Christina Birch, DO [address] [facility] [place] [address] 11/04/2024 9:30 AM EST Office Visit Gastroenterology, [facility] [address] [place] [address] Tia Taylor CRNP [address] [facility] [address] 01/09/2025 11:15 AM EDT Office Visit Ophthalmology, [place] [address] [place] [address] Ramsey Burnett DO [address] [place] [address] 01/26/2025 11:40 AM EDT Office Visit Nephrology, [facility] [address] [place] [address] Fidelina Baumann MD [address] [place] [address] Scheduled Orders Name Type Priority Associated Diagnoses Orde r Schedule HEMOGLOBIN A1C Lab Routine Type 2 diabetes mellitus with diabetic peripheral angiopathy without gangrene (HCC) Expected: 07/29/2024 (Approximate), Expires: 08/28/2025 Scheduled Procedures Name Priority Associated Diagnoses Date/Ti me COLONOSCOPY FLEXIBLE PROXIMAL DIAGNOSTIC Recall History of colon polyps ESOPHAGOGASTRODUODENOSCOPY ( EGD), FLEXIBLE, TRANSORAL, DIAGNOSTIC Recall Cirrhosis (HCC) COLONOSCOPY FLEXIBLE PROXIMAL DIAGNOSTIC Recall Personal history of colonic polyps Scheduled Referrals Name Type Priority Associated Diagnoses Orde r Schedule PODIATRY REFERRAL OP Referral Within 3 days (urgent) Toenail deformity Ordered: 07/29/2024 Health Maintenance Due Date Last Done Comments HIV Screening 1973 Cologuard 12/18/2003 Fecal Occult Blood Test 12/18/2003 DXA Scan 12/18/2023 01/12/2009 COVID-19 Vaccine ( season) 2024 10/25/2021, 02/16/2021, 01/18/2021 CKD PHOS USE SMARTSET 46812 06/18/202405/26, 06/16/2023, 06/15/2023, Additional history exists HbA1c 08/01/2024 01/30/2024, 08/25, 07/31/2023, Additional history exists Diabetic Eye Exam 09/13/2024 09/13/2023, , 09/13/2023, Additional history exists B-12 09/18/2024 09/18/2023, 08/24, 2020, Additional history exists GFR 11/01/2024 05/01/2024, 12/23, 10/15/2023, Additional history exists Albumin/Creatinine Ratio 01/07/2025 024, 03/09/2023, 12/22/2022, Additional history exists CKD HGB USE SMARTSET 80198 01/07/202501/07, 01/08/2024, 10/15/2023, Additional history exists TSH [...] this encounter Medical Devices Implanted Type Area Motor Vehicle Escort Driver Device Identifier Shelf Expiration Date Model / Serial / Lot Cath Roselia Single Lumen - [id number] Implanted:Qty : 1 on 03/12/2008 at OR [facility] Left: Chest [facility] *DO NOT USE* 07/25/2012 21-4053-24 / / [id number] Sut Steel 6 M654g - [id number] Implanted:Qty : 1 on 11/01/2010 at OR [facility] N/A: Chest DO NOT USE M654G / / Sut Steel 6 M654g - [id number] Implanted:Qty : 1 on 11/01/2010 at OR [facility] N/A: Chest DO NOT USE M654G / / Valve Tarsha Aortic [id number] - [id number] Implanted:Qty : 1 on 11/01/2010 at OR [facility] N/A: Heart CM [employer] DANIEL 05/20/2012 [id number] / / [id number] Description:[email or web address] Mesh Soft 17l98pl - [id number] Implanted:Qty : 1 on 10/10/2019 by Gigi Hendrickson MD at [facility] N/A: Abdomen CR BARD : DAVOL [id number] 05/21/2024 [id number] / / [id number] Lens 22.5 Sn60wf - [id number] - [id number] Implanted:Qty : 1 on 09/15/2020 by Cece Roland MD at [facility] Right: Eye IVA : SURGICAL [id number] 05/13/2025 SN60 WF.225 / [id number] / [id number] Lens 21.5 Sn60wf - [id number] - [id number] Implanted:Qty : 1 on 12/19/2023 by Ramsey [facility] Left: Eye IVA : SURGICAL 12/03/2024 SN60WF.2 15 / [id number] / documented as of this encounter Procedures Procedure Name Priority Date/Time Associated Diagnosis Comments XR TOES 2 OR MORE VIEWS STAT 07/29/2024 2:53 PM EST Toenail deformity documented in this encounter Results * XR TOES 2 OR MORE VIEWS (07/29/2024 2:53 PM EST) Anatomical Region Laterality Modality Lower Extremity Computed Radiogr aphy 07/29/2024 3:23 PM EST Impressions 07/29/2024 3:21 PM EST IMPRESSION No radiographic evidence of osteomyelitis. Narrative 07/29/2024 3:21 PM EST EXAM XR TOES 2 OR MORE VIEWS-07/29/2024 2:53 pm HISTORY L foot great toe ulceration dorsal aspect near base of nailbed in pt with T2DM - r/o osteomyelitis COMPARISON Left toe radiographs dating 02/23/2011. TECHNIQUE Three views of left great toe. FINDINGS Osteoarthritic changes are noted in the 1st through 3rd MTP joint with marginal osteophytes. No acute fracture. No destructive bony changes. Atherosclerotic disease. Markedly thickened appearance of the soft tissue at the plantar aspect of the forefoot. Plantar calcaneal spur. Procedure Note Bo Mello MD - 07/29/2024 EXAM XR TOES 2 OR MORE VIEWS-07/29/2024 2:53 pm HISTORY L foot great toe ulceration dorsal aspect near base of nailbed in pt [id number] - r/o osteomyelitis COMPARISON Left toe radiographs dating 02/23/2011. TECHNIQUE Three views of left great toe. FINDINGS Osteoarthritic changes are noted in the 1st through 3rd MTP joint withmarginal osteophytes. No acute fracture. No destructive bony changes. Atherosclerotic disease. Markedly thickened appearance of the soft tissueat the plantar aspect of the forefoot. Plantar calcaneal spur. IMPRESSION IMPRESSION No radiographic evidence of osteomyelitis. Jovita INIGUEZ RADIOLOGY ([facility]) Fi nal Result documented in this encounter Visit Diagnoses Diagnosis [...] valve replaced by other means Atherosclerosis of eastern [place] coronary artery of [place] heart without angina pectoris Schizoaffective disorder, bipolar type (HCC) Schizoaffective disorder, unspecified condition LEYVA (nonalcoholic steatohepatitis) Other chronic nonalcoholic liver disease Type 2 diabetes mellitus with diabetic mononeuropathy, with long-term current use of insulin (HCC)- Primary Atherosclerosis of [place] coronary artery of [place] heart without angina pectoris Hypertensive heart and [...] of insulin (HCC) Coronary artery disease involving [place] coronary artery of [place] heart without angina pectoris HTN, goal below [...] Mood disorder (HCC) Unspecified episodic mood disorder Toenail deformity- Primary Unspecified disease of nail Type 2 diabetes mellitus with diabetic peripheral angiopathy without gangrene, unspecified 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
--- OUTSIDE RECORDS SUMMARY | 2024-10-02 03:22 | External Medical Summary | Summary of Care ---
Author Name Unknown Organization [facility] Address [address] [place] [address] Phone [phone] Care Team Providers Care Refractory Furnace Designer Name Role Phone Gregory Rausch MD Primary Care Provider [phone] Reason for Visit * Reason Comments Insulin Pump Dosage Adjustment In Person (Anticoag Cl inic) Diabetes Follow-Up Encounter Details Date Type Department Care Team (Late st Contact Info) Description 08/19/2024 9:00 AM EST Office Visit Pharmacy, [facility] [address] [facility] [place] [address] Pharmacist1, [facility] [address] [facility] [place] [address] Type 2 diabetes mellitus with hemoglobin A1c goal of less than 8.0% ([facility]; Type 2 diabetes mellitus with stage 3a chronic kidney disease, with long-term current use of insulin ([facility]) Allergies Active Allergy Reactions Criticality Noted Date Comments Adhesive Tape 07/02/2017 Can tolerate band-aids Glycerin Other (Please comment) 03/12/2008 Topical agents with glycein-burning & itching Lactose 12/09/2014 Dairy - gas Lisinopril Cough 01/21/2010 Monosodium Glutamate Edema Other 03/12/2008 Hands and feet Penicillins Rash 11/14/2007 documented as of this encounter (statuses as of 08/19/2024) Medications aspirin enteric coated 81 MG TBECIndications:Ao rtic valve disorder Take 1 Tab by mouth daily. 90 Tab 11 09/30/19 19 Active AZO Cranberry 250-30 MG Oral Tablet Take 1 Tablet by mouth in the morning and 1 Tablet before bedtime. Active BD Glucose 5 GM Oral Tablet Chewable (Glucose)Indicatio ns:DM type 2, not at goal ([facility]) 3 every 15 minutes [...] of insulin ([facility]) Inject 36 Units under the skin in the morning. 18 mL 3 06/20/20 24 Active Klayesta 528292 UNIT/GM External Powder (Nystatin)Indicati ons:Candidal intertrigo APPLY TOPICALLY TO AFFECTED AREA 3 TIMES A DAY 60 g 1 06/23/20 24 Active Metoprolol Tartrate 50 MG Oral [...] before bedtime. 60 Tablet 08/12/20 24 Active documented as of this encounter (statuses as of 08/19/2024) Active Problems Problem Noted Date Diagnosed Date [...] eye 09/28/2020 Coronary artery disease invo lving kluti kaah coronary artery of kluti kaah heart without angina pectoris 12/16/2019 Assessment & [...] as of this encounter (statuses as of 08/19/2024) Resolved Problems Problem Noted Date Diagnosed Date [...] interval not displayed. Medication Regimen: o Beta Egna Therapy: Metoprolol Tartrate o CORINA Inhibitor/ARB Therapy: [...] 12/21/2016 Diabetes mellitus 01/05/2014 12/21/2016 LEYVA RESEARCH OTHER*[id number] 01/05/2014 12/21/2016 Axillary pain 11/03/2013 12/21/2016 Obesity, [...] 09/201008/26/2011 12/21/2016 FOLLOWING SURGERY, UNSPECIFI ED ([facility] BSO 08/25/2011) 08/26/2011 12/21/2016 ADVANCE [...] Electronic Medical Record [facility] V710 Clinical Trial*[id number] 12/22/2010 04/14/2011 S/P aortic valve replacement 12/01/2010 08/26/2011 S/P AORTIC VALVE REPLACEMENT - #25 pericardial Mc valve 11/01/2010 06/28/2018 Overview (11/02/2010): Aortic valve replacement with #25 pericardial Mc valve, model 2800TFX, serial number [id number] (Dr. Walker) [facility] V710 Clinical Trial*[id number] 10/18/2010 11/21/2010 Type 2 diabetes mellitus wit [...] as of this encounter (statuses as of 08/19/2024) Immunizations Name Administration Dates Next Due COVID-19 mRNA, LNP-s, No Pre serve, 2-Dose Series (Moderna) 10/25/2021,02/16/2021,01/18/2021 HEP A - Hepatitis A (Adult > 18 yrs) 06/07/2018, 12/05/2017 Hepatitis B, 20+ yrs 06/07/2018,01/08/20 18,12/05/2017,06/15,10/27/2013,09/12/2013 PPD 10/26/2019,10/17/2019 Pneumococcal Conjugate Vacci ne, 20-valent ([id number]) 06/22/2023 Pneumococcal Polysaccharide PPV23 (Pneumovax) 01/02/2008 Seasonal [...] 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 Medication Therapy Disease Management - CSII Start Training Jovita Rose is an 63 year old year old female being seen in the Medication Therapy Disease Management Clinic today for an insulin pump start training with Omnipod 5 Insulin Pump. Current Diabetes Medications: Tresiba 36 units once daily Ozempic 2mg [...] Medical marijuana use Coronary artery disease involving kluti kaah coronary artery of kluti kaah heart without angina pectoris Cystoid macular edema [...] with stage 3a chronic kidney disease (HCC) Atrial fibrillation (HCC) Polyneuropathy associated with underlying disease (HCC) Review of patient's allergies indicates: Allergen Reactions [...] mg/dL for hypoglycemia E11.9 100 Tab 3 PaperGTouch Verio w/Device Kit Use up to 4 times a day E11.9 1 Kit 0 PaperGTouch [employer] Lancets 33G TEST 4 TIMES DAILY DIRECTED, [...] 2 Capsules by mouth in the morning. PaperGTouch Verio In Vitro Strip (Glucose Blood) Use [...] once a week. Tuesdays) 9 mL 1 Kiwwilwesr-Ymkaktu-Fftcpbtw 50-325-40 MG Oral Capsule (Fiorinal) Take 1 Capsule by mouth every 4 hours as needed for Headache. 30 Capsule 0 Fluticasone Propionate 50 MCG/ACT Nasal Suspension (Flonase) Administer 2 Sprays into each nostril in the morning. 16 g 3 Tresiba FlexTouch 200 UNIT/ML Subcutaneous Solution Pen-injector (Insulin Degludec) Inject 36 Unitsunder the skin in the morning. 18 mL 3 Klayesta 455073 UNIT/GM External Powder (Nystatin) APPLY TOPICALLY TO AFFECTED AREA 3 TIMES A DAY 60 g 1 Metoprolol Tartrate 50 MG Oral Tablet (Lopressor) [...] 1 Tablet before bedtime. 60 Tablet 0 No current facility-administered medications for this visit. BG Summary: Objective: The ASCVD Risk score (Kennedy COUGHLIN, [...] Encounters: 08/12/24 118/64 07/29/24 130/64 07/16/24 143/65 Goal <8 Recent Labs Units 01/30/24 0827 09/18/23 0932 07/31/23 1134 HEMOGLOBIN A1C - [facility] % -- 7.5* 6.3* HEMOGLOBIN A1C POCT - [facility] % 8.8* -- -- Recent Labs Units 05/01/24 1108 01/08/24 1222 10/15/23 1156 ESTIMATED GLOMERULAR FILTRATION RATE - [facility] mL/min 63 63 44* CREATININE - [facility] mg/dL 1.0 1.0 1.3* Lab Results Component Value Date/Time LDL CHOLESTEROL [...] Rights and Responsibilities in User Guide Personal Pan Puller (PDM): ID screen, pump buttons, battery and [...] Diabetes Medications: (pump initiation settings scanned in Sols) Ozempic 2mg every Sunday Omnipod Insulin Pump (Serial Number: need to get) Insulin: Novolog Basal Rate: 1.5units/hour Bolus: using carb counting Bolus Calculator: on and using ICR: 25 ISF: 25 Blood Glucose Goal Limits: 70-180 Bolus Calculator: Target B Correct above: 180 Minimum B Active Insulin Time: 2 hours Phone call follow up: 10 days 08/29/2024 I spent a total of Greater than 55 mins (exact time 150 mins) on the date of service in preparation, delivery, and documentation of the care provided to Jovita Rose excluding any time spent in the performance of separately billed services or time spent by another provider/QHP. Neeraj Romero, [facility] Clinical Pharmacist Medication Therapy Disease Management 08/19/2024, 9:12 AM documented in this encounter Plan of Treatment Upcoming Encounters Date Type Department Care Team (Late st Contact Info) Description 08/29/2024 9:10 AM EST Telemedicine Pharmacy, [facility] [address] [facility] [place] [address] Pharmacist1, [facility] [address] [facility] [place] [address] 09/01/2024 9:20 AM EST Office Visit Podiatry [facility] [address] [facility] [place] [address] Valerie Aguilar DPM [address] [place] [address] 09/09/2024 10:00 AM EST Scheduled Telephone [facility], [facility] [address] [place] [place] [address] Lakesha King, [place] [address] [place] [facility] [place] [address] 11/03/2024 11:00 AM EST Office Visit Sleep Disorders Ctr [facility] [address] [facility] [place] [phone] Christina Birch, [address] [facility] [place] [address] 11/04/2024 9:30 AM EST Office Visit Gastroenterology, [facility] [address] [place] [address] Tia Taylor CRNP [address] [place] [address] 01/09/2025 11:15 AM EDT Office Visit Ophthalmology, [place] [address] [place] [address] Ramsey Burnett DO [address] [place] [address] 01/26/2025 11:40 AM EDT Office Visit Nephrology, [facility] [address] [facility] [address] Fidelina Baumann MD [address] [facility] [place] [address] Scheduled Procedures Name Priority Associated Diagnoses Date/Ti [...] 10/25/2021, 02/16/2021, 01/18/2021 CKD PHOS USE SMARTSET 11801 06/18/202405/26, 06/16/2023, 06/15/2023, Additional history exists HbA1c 08/01/2024 01/30/2024, 08/25, 07/31/2023, Additional history exists Diabetic Eye Exam 09/13/2024 09/13/2023, , 09/13/2023, Additional history exists B-12 09/18/2024 09/18/2023, 08/24, 2020, Additional history exists GFR 11/01/2024 05/01/2024, 12/23, 10/15/2023, Additional history exists Albumin/Creatinine Ratio 01/07/2025 024, 03/09/2023, 12/22/2022, Additional history exists CKD HGB USE SMARTSET 78830 01/07/202501/07, 01/08/2024, 10/15/2023, Additional history exists TSH [...] this encounter Medical Devices Implanted Type Area Trimmer Machine Operator Device Identifier Shelf Expiration Date Model / Serial / Lot Cath Roselia Single Lumen - [id number] Implanted:Qty : 1 on 03/12/2008 at OR [facility] Left: Chest [facility] *DO NOT USE* 07/25/2012 21-4053-24 / / [id number] Sut Steel 6 M654g - [id number] Implanted:Qty : 1 on 11/01/2010 at OR [facility] N/A: Chest DO NOT USE M654G / / Sut Steel 6 M654g - [id number] Implanted:Qty : 1 on 11/01/2010 at OR [facility] N/A: Chest DO NOT USE M654G / / Valve Tarsha Aortic [id number] - [id number] Implanted:Qty : 1 on 11/01/2010 at OR [facility] N/A: Heart [employer] DANIEL 05/20/2012 2800TFX-25 / / [id number] Description:[email or web address] Mesh Soft 37x14mc - [id number] Implanted:Qty : 1 on 10/10/2019 by Gigi Hendrickson MD at [place] [facility] N/A: Abdomen CR BARD : DAVOL [id number] 05/21/2024 [id number] / / [id number] Lens 22.5 Sn60wf - [id number] - [id number] Implanted:Qty : 1 on 09/15/2020 by Renaldo Cook, Cece Aocsta MD at [facility] Right: Eye IVA : SURGICAL [id number] 05/13/2025 SN60 WF.225 / [id number] / [id number] Lens 21.5 Sn60wf - [id number] - [id number] Implanted:Qty : 1 on 12/19/2023 by Ramsey Burnett DO at OR 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) S/P TAVR (transcatheter aortic valve replacement) Heart valve replaced by other means Atherosclerosis of kluti kaah coronary artery of kluti kaah heart without angina pectoris Schizoaffective disorder, bipolar type (HCC) Schizoaffective disorder, unspecified condition LEYVA (nonalcoholic steatohepatitis) Other chronic nonalcoholic liver disease Type 2 diabetes mellitus with diabetic mononeuropathy, with long-term current use of insulin (HCC)- Primary Atherosclerosis of kluti kaah coronary artery of kluti kaah heart without angina pectoris Hypertensive heart and [...] of insulin (HCC) Coronary artery disease involving kluti kaah coronary artery of kluti kaah heart without angina pectoris HTN, goal below [...] statute hierarchy) Jovita Ovalle Adult Child Health Emblem Fuser Tender resentative (appointed verbally by patient or by statute hierarchy) Care Teams Refractory Furnace Designer Relationship Specialty Start Date End Date Gregory Rausch MD [address] [place] [address] PCP - General Family Medicine 02/12/20 documented as of this encounter
--- OUTSIDE RECORDS SUMMARY | 2024-10-02 03:22 | External Medical Summary | Summary of Care ---
Author Name Unknown Organization [facility] Address [address] [place] [address] Phone [phone] Care Team Providers Care Filters Assembler Name Role Phone Deon Rausch MD Primary Care Provider [phone] Reason for Visit * Reason Comments eRx-Medication Refill Encounter Details Date Type Department Care Team (Late st Contact Info) Description 08/18/2024 Refill Family Practice [facility] [address] [place] [address] Deon Rausch MD [address] [place], [place] [id number] Candidal intertrigo Allergies Active Allergy Reactions Criticality Noted Date Comments Adhesive Tape 07/02/2017 Can tolerate band-aids Glycerin Other (Please comment) 03/12/2008 Topical agents with glycein-burning & itching Lactose 12/09/2014 Dairy - gas Lisinopril Cough 01/21/2010 Monosodium Glutamate Edema Other 03/12/2008 Hands and feet Penicillins Rash 11/14/2007 documented as of this encounter (statuses as of 08/19/2024) Medications aspirin enteric coated 81 MG TBECIndications:A ortic valve disorder Take 1 Tab by mouth daily. 90 Tab 11 019 Active AZO Cranberry 250-30 MG Oral Tablet Take 1 Tablet by mouth in the morning and 1 Tablet before bedtime. Active BD Glucose 5 GM Oral Tablet Chewable (Glucose)Indicati ons:DM type 2, not at goal ([facility] [...] 1 Tablet before bedtime. 180 Tablet 3 024 Active BD Pen Needle Short U/F 31G X 8 MMIndications:Typ e 2 diabetes mellitus with hemoglobin A1c goal of less than 7.0% ([facility]),Type 2 diabetes mellitus with stage 3a chronic kidney disease, with long-term current use of insulin ([facility]) Use with insulin 4 times daily 400 Each 3 01/09/ 024 Active BD Insulin Syringe 25G X 1" 1 ML (Insulin Syringe-Needle U-100) Use daily with omnipod as directed DX E11.9 100 Each 5 03/14/ 024 Active Curity Alcohol Swabs Pad Use as directed as needed 200 Each 5 024 Active Aquaphor External Ointment Apply topically [...] [facility]),S/P aortic valve replacement,HTN, goal below 140/80,Dyslipidem [...] mouth 2 times a day. 360 Tablet 024 Active Ozempic (2 MG/DOSE) 8 MG/3ML Subcutaneous [...] before bedtime. 60 Tablet 024 Active Klayesta 116235 UNIT/GM External Powder (Nystatin)Indicat ions:Candidal intertrigo APPLY TOPICALLY TO AFFECTED AREA 3 TIMES A DAY 60 g 1 024 Active Klayesta 059963 UNIT/GM External Powder (Nystatin)Indicat ions:Candidal intertrigo APPLY TOPICALLY TO AFFECTED AREA 3 TIMES A DAY 60 g 1 024 2023 Discontinued documented as of this [...] eye 09/28/2020 Coronary artery disease invo lving chinik coronary artery of chinik heart without angina pectoris 12/16/2019 Assessment & [...] 12/21/2016 Diabetes mellitus 01/05/2014 12/21/2016 LEYVA RESEARCH OTHER*[id number] 01/05/2014 12/21/2016 Axillary pain 11/03/2013 12/21/2016 Obesity, [...] UNSPECIFI ED ([facility] BSO 08/25/2011) 08/26/2011 12/21/2016 ADVANCE DIRECTIVE INFORMATION 04/17/2011 12/21/2016 Overview (01/21/2010): Yes, Patient instructed to provide copy of advance directive for provider to review and to be scanned into Electronic Medical Record ADVANCE DIRECTIVE INFORMATION 03/01/2011 12/21/2016 Overview (03/01/2011): Yes, Patient instructed to provide copy of advance directive for provider to review and to be scanned into Electronic Medical Record [facility] V710 Clinical Trial*[id number] 12/22/2010 04/14/2011 S/P aortic valve replacement 12/01/2010 08/26/2011 S/P AORTIC VALVE REPLACEMENT - #25 pericardial Mc valve 11/01/2010 06/28/2018 Overview (11/02/2010): Aortic valve replacement with #25 pericardial Mc valve, model 2800TFX, serial number [id number] (Dr. 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 Not on fi [...] Telephone Encounter - Deon Rausch MD - 08/19/2024 4:26 PM ESTSigned Prescriptions: Disp Refills Klayesta 138580 UNIT/GM External Powder (N*60 g 1 Sig: APPLY TOPICALLY TO AFFECTED AREA 3 TIMES A DAY Authorizing Provider: DEON RAUSCH * Telephone Encounter - Briseida Kang LPN - 08/19/2024 10:09 AM ESTPending Prescriptions: Disp Refills Klayesta 421788 UNIT/GM External Powder [P*60 g 1 Sig: APPLY TOPICALLY TO AFFECTED AREA 3 TIMES A DAY * Telephone Encounter - Briseida Kang LPN - 08/19/2024 10:08 AM EST Did you pend patient's preferred pharmacy and medication before forwarding?yes Pharmacy: [id number] [address] [facility] Pending Prescriptions: Disp Refills Benesta 255568 UNIT/GM External Powder (*60 g 1 Sig: APPLY TOPICALLY TO AFFECTED AREA 3 TIMES A DAY Last Visit: 08/12/2024 (in office), 09/12/2023 (telemedicine) Next Visit: Visit date not found If no future appointments scheduled, and last appointment is greater than a year ago, please schedule patient for a follow-up appointment Last date the medication was ordered: 06/23/24 Is this request for a controlled substance?No [...] * Telephone Encounter - Caroline Ellis - 08/18/2024 7:05 PM ESTPending Prescriptions: Disp Refills Jennie [id number] UNIT/GM External Powder [P*60 g 1 Sig: APPLY TOPICALLY TO AFFECTED AREA 3 TIMES A DAY documented in this encounter Plan of Treatment Upcoming Encounters Date Type Department Care Team (Late st Contact Info) Description 08/29/2024 9:10 AM EST Telemedicine Pharmacy, [facility] [address] [facility] [place] [address] Pharmacist1, [facility] [address] [facility] [place] [address] 09/01/2024 9:20 AM EST Office Visit Pod[facility]ry [facility] [address] [facility] [place] [address] Valerie Aguilar, [address] [address] 09/09/2024 10:00 AM EST Scheduled Telephone [facility], [facility] [address] [place] [facility] [place] [address] Lakesha King, [place] [address] [place] [facility] [place] [address] 11/03/2024 11:00 AM EST Office Visit Sleep Disorders Ctr [facility] [address] [facility] [place] [phone] Christina Birch, [address] [facility] [place] [address] 11/04/2024 9:30 AM EST Office Visit Gastroenterology, [facility] [address] [place] [address] Tia Taylor CRNP [address] [place] [address] 01/09/2025 11:15 AM EDT Office Visit Ophthalmology, [place] [address] [place] [address] Ramsey Burnett DO [address] [place] [address] 01/26/2025 11:40 AM EDT Office Visit Nephrology, [facility] [address] [facility] [place] [address] Fidelina Baumann MD [address] [facility] [place] [address] Scheduled Procedures Name Priority Associated Diagnoses Date/Ti [...] 10/25/2021, 02/16/2021, 01/18/2021 CKD PHOS USE SMARTSET 33684 06/18/202405/26, 06/16/2023, 06/15/2023, Additional history exists HbA1c 08/01/2024 01/30/2024, 08/25, 07/31/2023, Additional history exists Diabetic Eye Exam 09/13/2024 09/13/2023, , 09/13/2023, Additional history exists B-12 09/18/2024 09/18/2023, 08/24, 2020, Additional history exists GFR 11/01/2024 05/01/2024, 12/23, 10/15/2023, Additional history exists Albumin/Creatinine Ratio 01/07/2025 024, 03/09/2023, 12/22/2022, Additional history exists CKD HGB USE SMARTSET 24985 01/07/202501/07, 01/08/2024, 10/15/2023, Additional history exists TSH [...] this encounter Medical Devices Implanted Type Area Shake Sawyer Device Identifier Shelf Expiration Date Model / Serial / Lot Cath Roselia Single Lumen - [id number] Implanted:Qty : 1 on 03/12/2008 at OR [facility] Left: Chest [facility] *DO NOT USE* 07/25/2012 21-4053-24 / / [id number] Sut Steel 6 M654g - [id number] Implanted:Qty : 1 on 11/01/2010 at OR [facility] N/A: Chest DO NOT USE M654G / / Sut Steel 6 M654g - [id number] Implanted:Qty : 1 on 11/01/2010 at OR [facility] N/A: Chest DO NOT USE M654G / / Valve Tarsha Aortic [id number] - [id number] Implanted:Qty : 1 on 11/01/2010 at OR [facility] N/A: Heart [employer] DANIEL 05/20/2012 2800TFX-25 / / [id number] Description:[email or web address] Mesh Soft [id number] - [id number] Implanted:Qty : 1 on 10/10/2019 by Gigi Hendrickson MD at OR [facility] N/A: Abdomen CR BARD : DAVOL [id number] 05/21/2024 [id number] / / [id number] Lens 22.5 Sn60wf - [id number] - [id number] Implanted:Qty : 1 on 09/15/2020 by Renaldo Cook, Cece Acosta MD at [facility] Right: Eye IVA : SURGICAL [id number] 05/13/2025 SN60 WF.225 / [id number] / [id number] Lens 21.5 Sn60wf - [id number] - [id number] Implanted:Qty : 1 on 12/19/2023 by Ramsey Burnett DO at OR [facility] Left: Eye IVA : SURGICAL 12/03/2024 SN60WF.2 15 / [id number] / documented as of this encounter [...] valve replaced by other means Atherosclerosis of chinik coronary artery of chinik heart without angina pectoris Schizoaffective disorder, bipolar type (HCC) Schizoaffective disorder, unspecified condition LEYVA (nonalcoholic steatohepatitis) Other chronic nonalcoholic liver disease Type 2 diabetes mellitus with diabetic mononeuropathy, with long-term current use of insulin (HCC)- Primary Atherosclerosis of chinik coronary artery of chinik heart without angina pectoris Hypertensive heart and [...] of insulin (HCC) Coronary artery disease involving chinik coronary artery of chinik heart without angina pectoris HTN, goal below [...] Mood disorder (HCC) Unspecified episodic mood disorder Candidal intertrigo Candidiasis of skin and nails [...] statute hierarchy) Jovita Ovalle Adult Child Health Diet Supervisor resentative (appointed verbally by patient or by statute hierarchy) [email or web address] Care Teams Filters Assembler Relationship Specialty Start Date End Date Deon Rausch MD [address] [place] [address] PCP - General Family Medicine 02/12/20 documented as of this encounter
--- OUTSIDE RECORDS SUMMARY | 2024-10-02 03:22 | External Medical Summary | Summary of Care ---
Author Name Unknown Organization [facility] Address [address] [place] [address] Phone [phone] Care Team Providers Care Disease Education Specialist Name Role Phone Gregory Rausch MD Primary Care Provider [phone] Reason for Visit * Reason Comments Insulin Pump Dosage Adjustment In Person (Anticoag Cl inic) Diabetes Follow-Up Encounter Details Date Type Department Care Team (Late st Contact Info) Description 08/19/2024 9:00 AM EST Office Visit Pharmacy, [facility] [address] [facility] [place] [address] Pharmacist1, [facility] [address] [place] [address] Type 2 diabetes mellitus with hemoglobin A1c goal of less than 8.0% ([facility])*; Type 2 diabetes mellitus with stage 3a chronic kidney disease, with long-term current use of insulin ([facility]) Allergies Active Allergy Reactions Criticality [...] 18 mL 3 06/20/20 24 Active Klayesta 353896 UNIT/GM External Powder (Nystatin)Indicati ons:Candidal intertrigo APPLY [...] long actin insulin DM Secondary Prevention o COIRNA Inhibitor / ARB o Moderate-High Intensity Statin o Aspirin Cystoid macular edema of right eye 09/28/2020 Coronary artery disease invo lving chefornak coronary artery of [place] heart without angina pectoris 12/16/2019 Assessment & [...] 12/21/2016 Diabetes mellitus 01/05/2014 12/21/2016 LEYVA RESEARCH OTHER*[id number] 01/05/2014 12/21/2016 Axillary pain 11/03/2013 12/21/2016 Obesity, [...] [facility] V710 Clinical Trial*[id number] 12/22/2010 04/14/2011 S/P aortic valve replacement 12/01/2010 08/26/2011 S/P AORTIC VALVE REPLACEMENT - #25 pericardial Mc valve 11/01/2010 06/28/2018 Overview (11/02/2010): Aortic valve replacement with #25 pericardial Mc valve, model 2800TFX, serial number [id number] (Dr. 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 AllSource AnalysisTouch Verio In Vitro Strip (Glucose Blood) Use [...] once a week. Tuesdays) 9 mL 1 Ppwjcwjiam-Uoufrys-Phkfiinz 50-325-40 MG Oral Capsule (Fiorinal) Take 1 Capsule by mouth every 4 hours as needed for Headache. 30 Capsule 0 Fluticasone Propionate 50 MCG/ACT Nasal Suspension (Flonase) Administer 2 Sprays into each nostril in the morning. 16 g 3 Tresiba FlexTouch 200 UNIT/ML Subcutaneous Solution Pen-injector (Insulin Degludec) Inject 36 Unitsunder the skin in the morning. 18 mL 3 Klayesta 879517 UNIT/GM External Powder (Nystatin) APPLY TOPICALLY TO [...] Rights and Responsibilities in User Guide Personal Hand Iii Cutter (PDM): ID screen, pump buttons, battery and [...] Diabetes Medications: (pump initiation settings scanned in Lenovo) Ozempic 2mg every Sunday Omnipod Insulin Pump [...] time spent by another provider/QHP. Neeraj Romero, [facility] Clinical Pharmacist Medication Therapy Disease Management 08/19/2024, 9:12 AM documented in this encounter Plan of Treatment Upcoming Encounters Date Type Department Care Team (Late st Contact Info) Description 08/29/2024 9:10 AM EST Telemedicine Pharmacy, [facility] [address] [facility] [place] [address] Pharmacist1, [facility] [address] [facility] [place] [address] 09/01/2024 9:20 AM EST Office Visit Podiatry [facility] [address] [facility] [place] [address] Valerie Aguilar DPM [address] [place] [address] 09/09/2024 10:00 AM EST Scheduled Telephone [facility], [facility] [address] [place] [facility] [place] [address] Lakesha King, MITCHELLN [address] [place] [facility] [place] [address] 11/03/2024 11:00 AM EST Office Visit Sleep Disorders Ctr [facility] [address] [facility] [place] [id number] Christina Birch, [address] [facility] [place] [address] 11/04/2024 9:30 AM EST Office Visit Gastroenterology, [facility] [address] [place] [address] Tia Taylor CRNP [address] [place] [address] 01/09/2025 11:15 AM EDT Office Visit Ophthalmology, [place]ater[place] [address] [place] [address] Ramsey Burnett DO [address] [place] [address] 01/26/2025 11:40 AM EDT Office Visit Nephrology, Courtney [facility] [address] [facility] [place] [address] Fidelina Baumann MD [address] [facility] [place] [address] Scheduled Procedures Name Priority Associated Diagnoses Date/Ti [...] 10/25/2021, 02/16/2021, 01/18/2021 CKD PHOS USE SMARTSET 05993 06/18/202405/26, 06/16/2023, 06/15/2023, Additional history exists HbA1c 08/01/2024 01/30/2024, 08/25, 07/31/2023, Additional history exists Diabetic Eye Exam 09/13/2024 09/13/2023, , 09/13/2023, Additional history exists B-12 09/18/2024 09/18/2023, 08/24, 2020, Additional history exists GFR 11/01/2024 05/01/2024, 12/23, 10/15/2023, Additional history exists Albumin/Creatinine Ratio 01/07/2025 024, 03/09/2023, 12/22/2022, Additional history exists CKD HGB USE SMARTSET 93671 01/07/202501/07, 01/08/2024, 10/15/2023, Additional history exists TSH [...] this encounter Medical Devices Implanted Type Area Broker Assistant Device Identifier Shelf Expiration Date Model / Serial / Lot Cath Roselia Single Lumen - [id number] Implanted:Qty : 1 on 03/12/2008 at OR [facility] Left: Chest [facility] *DO NOT USE* 07/25/2012 21-4053-24 / / [id number] Sut Steel 6 M654g - [id number] Implanted:Qty : 1 on 11/01/2010 at OR [facility] N/A: Chest DO NOT USE M654G / / Sut Steel 6 M654g - [id number] Implanted:Qty : 1 on 11/01/2010 at OR [facility] N/A: Chest DO NOT USE M654G / / Valve Tarsha Aortic [id number] - [id number] Implanted:Qty : 1 on 11/01/2010 at OR [facility] N/A: Heart MC LIFESCIHojoki DANIEL 05/20/2012 2800TFX-25 / / [id number] Description:[email or web address] Mesh Soft 96l90io - [id number] Implanted:Qty : 1 on 10/10/2019 by Gigi Hendrickson MD at [place] [facility] N/A: Abdomen CR BARD : DAVOL [id number] 05/21/2024 [id number] / / [id number] Lens 22.5 Sn60wf - [id number] - [id number] Implanted:Qty : 1 on 09/15/2020 by Renaldo Cook, Cece Acosta MD at OR [facility] Right: Eye IVA : SURGICAL [id number] 05/13/2025 SN60 WF.225 / [id number] / [id number] Lens 21.5 Sn60wf - [id number] - [id number] Implanted:Qty : 1 on 12/19/2023 by Ramsey Burnett DO at OR [facility] Left: Eye IVA : SURGICAL 12/03/2024 SN60WF.2 15 / [id number] / documented as of this encounter Visit Diagnoses Diagnosis Dysuria- Primary Atherosclerosis of aorta (HCC) Atherosclerosis of aorta Type 2 diabetes mellitus with hemoglobin A1c goal of less than 7.0% ([facility]) DANYELLE on CPAP Obstructive sleep apnea (adult) (pediatric) 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) S/P TAVR (transcatheter aortic valve replacement) Heart valve replaced by other means Atherosclerosis of chefornak coronary artery of chefornak heart without angina pectoris Schizoaffective disorder, bipolar type (HCC) Schizoaffective disorder, unspecified condition LEYVA (nonalcoholic steatohepatitis) Other chronic nonalcoholic liver disease Type 2 diabetes mellitus with diabetic mononeuropathy, with long-term current use of insulin (HCC)- Primary Atherosclerosis of chefornak coronary artery of chefornak heart without angina pectoris Hypertensive heart and [...] of insulin (HCC) Coronary artery disease involving chefornak coronary artery of chefornak heart without angina pectoris HTN, goal below [...] statute hierarchy) Jovita Ovalle Adult Child Health Ergonomist resentative (appointed verbally by patient or by statute hierarchy) [email or web address] Care Teams Disease Education Specialist Relationship Specialty Start Date End Date Gregory Rausch MD [address] [place] [address] PCP - General Family Medicine 02/12/20 documented as of this encounter
--- OUTSIDE RECORDS SUMMARY | 2024-10-02 03:22 | External Medical Summary | Summary of Care ---
Author Name Unknown Organization [facility] Address [address] [place] [address] Phone [phone] Care Team Providers Care Enterprise Sales Executive Name Role Phone Gregory Rausch MD Primary Care Provider [phone] Reason for Visit * Reason Onset Date Comments Appointment 08/08/2024 Encounter Details Date Type Department Care Team (Late st Contact Info) Description 08/08/2024 Telephone [facility], [place] [facility] [address] [place] [id number] Hughes, Jeremiah, DANYELLE [address] [place] [address] Appointment Allergies Active Allergy Reactions Criticality Noted Date Comments Adhesive Tape 07/02/2017 Can tolerate band-aids Glycerin Other (Please comment) 03/12/2008 Topical agents with glycein-burning & itching Lactose 12/09/2014 Dairy - gas Lisinopril Cough 01/21/2010 Monosodium Glutamate Edema Other 03/12/2008 Hands and feet Penicillins Rash 11/14/2007 documented as of this encounter (statuses as of 08/08/2024) Medications aspirin enteric coated 81 MG TBECIndications:Ao [...] directed as needed 200 Each 5 03/14/20 Active Aquaphor External Ointment Apply topically to affected area as needed for Dry Skin. Apply to face 420 g 01/10/20 Active Ammonium Lactate 12 % External Lotion (Lac-Hydrin) Apply to both feet once daily. 400 g 2 01/10/20 24 Active Insulin Aspart 100 UNIT/ML Injection Solution (NovoLOG)Indicatio ns:Type 2 diabetes mellitus with hemoglobin A1c goal of less than 7.0% ([facility]) Use up to 50 units per day in Omnipod. 03/31/20 Active Omnipod 5 G6 Intro (Gen 5) Kit Use as directed. Use to delivery insulin via insulin pump 1 Kit 5 04/10/20 Active Additional Information Patient not taking.Reported on 07/10/2024 Loperamide HCl 2 MG Oral Capsule (Imodium [...] QWEEK,Tuesdays, Indications: weekly on fridays, Reported on 07/09/2024 Butalbital-Aspirin -Caffeine 50-325-40 MG Oral Capsule (Fiorinal)Indicati [...] 18 mL 3 06/20/20 24 Active Klayesta 021504 UNIT/GM External Powder (Nystatin)Indicati ons:Candidal intertrigo APPLY [...] morning 90 Tablet 3 06/25/20 24 Active documented as of this encounter (statuses as of 08/08/2024) Active Problems Problem Noted Date Diagnosed Date Vomiting and diarrhea 06/05/2024 Atrial fibrillation 06/05/2024 Polyneuropathy associated with underlying [...] eye 09/28/2020 Coronary artery disease invo lving council coronary artery of council heart without angina pectoris 12/16/2019 Assessment & [...] as of this encounter (statuses as of 08/08/2024) Resolved Problems Problem Noted Date Diagnosed Date Resolved Date Dehydration 06/05/2024 07/29/2024 Confusion 06/05/2024 07/29/2024 Recurrent Clostridium difficile diarrhea 01/23/2024 07/29/2024 Assessment [...] 12/21/2016 Diabetes mellitus 01/05/2014 12/21/2016 LEYVA RESEARCH OTHER*[id number] 01/05/2014 12/21/2016 Axillary pain 11/03/2013 12/21/2016 Obesity, [...] Medical Record [facility] V710 Clinical Trial*[id number] 12/22/2010 04/14/2011 S/P aortic valve replacement 12/01/2010 08/26/2011 S/P AORTIC VALVE REPLACEMENT - #25 pericardial Mc valve 11/01/2010 06/28/2018 Overview (11/02/2010): Aortic valve replacement with #25 pericardial Mc valve, model 2800TFX, serial number [id number] (Dr. Walker) [facility] V710 Clinical Trial*[id number] 10/18/2010 11/21/2010 Type 2 diabetes mellitus wit [...] as of this encounter (statuses as of 08/08/2024) Immunizations Name Administration Dates Next Due COVID-19 mRNA, LNP-s, No Pre serve, 2-Dose Series (Moderna) 10/25/2021,02/16/2021,01/18/2021 HEP A - Hepatitis A (Adult > 18 yrs) 06/07/2018, 12/05/2017 Hepatitis B, 20+ yrs 06/07/2018,01/08/20 18,12/05/2017,06/15,10/27/2013,09/12/2013 PPD 10/26/2019,10/17/2019 Pneumococcal Conjugate Vacci ne, 20-valent ([id number]) 06/22/2023 Pneumococcal Polysaccharide PPV23 (Pneumovax) 01/02/2008 Seasonal [...] Industry 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 (5 years old or older) Answer Entry Date Author No 11/06/2017 4:30 PM Gisela Greer RN documented in this encounter Miscellaneous Notes * Telephone Encounter - Jeremiah Hughes [facility] - 08/08/2024 1:47 PM EST TT received from management () regarding a template change. [facility] was directed to move appt's on schedule from Sunday to Sunday. Called and LMOM with appt change. documented in this encounter Plan of Treatment Upcoming Encounters Date Type Department Care Team (Late st Contact Info) Description 08/12/2024 9:20 AM EST Office Visit Family Practice [facility] [address] [place] [address] Gregory Rausch MD [address] [place] [address] 08/12/2024 4:00 PM EST Home Visit [facility] [address] [place] [address] Zurdo Christina RN [address] [facility] [place] [address] 08/19/2024 9:00 AM EST [facility] [place] [address] [place] [address] Pharmacist1, [facility] [address] [place] [address] 09/01/2024 9:20 AM EST Office Visit Podiatry [facility] [address] [place] [address] Valerie Aguilar DPM [address] [facility] [place] [address] 09/09/2024 10:00 AM EST Scheduled Telephone [facility], [facility] [address] [facility] [place] [address] [place] Lakesha Hussein, RDN [address] [facility] [place] [address] 11/03/2024 11:00 AM EST Office Visit Sleep Disorders [facility] [id number] Christina Birch, DO [address] [facility] [address] 11/04/2024 9:30 AM EST Office Visit Gastroenterology, [facility] [address] [facility] [place] [address] Tia Taylor CRNP [address] [facility] [place] [address] 01/09/2025 11:15 AM EDT Office Visit Ophthalmology, Katerina [address] [place] [address] Ramsey Burnett DO [address] [place] [address] 01/26/2025 11:40 AM EDT Office Visit Nephrology, [facility] [address] [place] [address] Fidelina Baumann MD [address] [place] [address] Scheduled Procedures Name Priority Associated Diagnoses Date/Ti [...] 10/25/2021, 02/16/2021, 01/18/2021 CKD PHOS USE SMARTSET 96803 06/18/202405/26, 06/16/2023, 06/15/2023, Additional history exists HbA1c 08/01/2024 01/30/2024, 08/25, 07/31/2023, Additional history exists Diabetic Eye Exam 09/13/2024 09/13/2023, , 09/13/2023, Additional history exists B-12 09/18/2024 09/18/2023, 08/24, 2020, Additional history exists GFR 11/01/2024 05/01/2024, 12/23, 10/15/2023, Additional history exists Albumin/Creatinine Ratio 01/07/2025 024, 03/09/2023, 12/22/2022, Additional history exists CKD HGB USE SMARTSET 90782 01/07/202501/07, 01/08/2024, 10/15/2023, Additional history exists TSH [...] encounter Medical Devices Implanted Type Area Cook Helper Device Identifier Shelf Expiration Date Model / Serial / Lot Cath Roselia Single Lumen - [id number] Implanted:Qty : 1 on 03/12/2008 at OR [facility] Left: Chest [facility] *DO NOT USE* 07/25/2012 21-4053-24 / / [id number] Sut Steel 6 M654g - [id number] Implanted:Qty : 1 on 11/01/2010 at OR [facility] N/A: Chest DO NOT USE M654G / / Sut Steel 6 M654g - [id number] Implanted:Qty : 1 on 11/01/2010 at OR [facility] N/A: Chest DO NOT USE M654G / / Valve Tarsha Aortic [id number] - [id number] Implanted:Qty : 1 on 11/01/2010 at OR [facility] N/A: Heart MC [employer]IFESCIENCES DANIEL 05/20/2012 2800TFX-25 / / [id number] Description:[email or web address] Mesh Soft 06c82tp - [id number] Implanted:Qty : 1 on 10/10/2019 by Gigi Hendrickson MD at [place] [facility] N/A: Abdomen CR BARD : DAVOL [id number] 05/21/2024 [id number] / / [id number] Lens 22.5 Sn60wf - [id number] - [id number] Implanted:Qty : 1 on 09/15/2020 by Renaldo Cook, Cece Acosta MD at [facility] Right: Eye IVA : SURGICAL [id number] 05/13/2025 SN60 WF.225 / [id number] / [id number] Lens 21.5 Sn60wf - [id number] - [id number] Implanted:Qty : 1 on 12/19/2023 by Ramsey Burnett DO at OR [facility] Left: Eye IVA : SURGICAL 12/03/2024 SN60WF.2 15 / [id number] / documented as of this encounter [...] statute hierarchy) Jovita Ovalle Adult Child Health Crab Backer resentative (appointed verbally by patient or by statute hierarchy) [email or web address] Care Teams Enterprise Sales Executive Relationship Specialty Start Date End Date Gregory Rausch MD [address] [place] [address] PCP - General Family Medicine 02/12/20 documented as of this encounter
--- OUTSIDE RECORDS SUMMARY | 2024-10-02 03:22 | External Medical Summary | Summary of Care ---
Author Name Unknown Organization [facility] Address [address] [place] [address] Phone [phone] Care Team Providers Care Investment Director Name Role Phone Gregory Rausch MD Primary Care Provider [phone] Reason for Visit * Reason Comments Follow Up Pt here for 6 month follow up, pt states she is having diarrhea and is concerned it is related to cdiff. Encounter Details Date Type Department Care Team (Late st Contact Info) Description 08/12/2024 9:20 AM EST Office Visit Family [facility] [address] [place] [address] Gregory Rausch MD [address] [place] [address] Chronic diarrhea*; Type 2 diabetes mellitus with stage 3a chronic kidney disease, with long-term current use of insulin ([facility]); Type 2 diabetes mellitus with hemoglobin A1c goal of less than 8.0% ([facility]); Type 2 diabetes mellitus with diabetic peripheral angiopathy without gangrene, with long-term current use of insulin ([facility]); Dyslipidemia; Acquired hypothyroidism; DANYELLE on CPAP; S/P TAVR (transcatheter aortic valve replacement); HTN, goal below 130/80; Coronary artery disease involving [place] coronary artery of [place] heart without angina pectoris; Paroxysmal atrial fibrillation (HCC); LEYVA (nonalcoholic steatohepatitis); Hypertensive kidney disease with stage 3a chronic kidney disease (HCC); Social anxiety disorder; Schizoaffective disorder, bipolar type (HCC); Medical marijuana use; Hoarding disorder; History of colon cancer; History of breast cancer; H/O bilateral mastectomy Allergies Active Allergy Reactions Criticality Noted Date Comments Adhesive Tape 07/02/2017 Can tolerate band-aids Glycerin Other (Please comment) 03/12/2008 Topical agents with glycein-burning & itching Lactose 12/09/2014 Dairy - gas Lisinopril Cough 01/21/2010 Monosodium Glutamate Edema Other 03/12/2008 Hands and feet Penicillins Rash 11/14/2007 documented as of this encounter (statuses as of 08/12/2024) Medications aspirin enteric coated 81 MG TBECIndications:A [...] both feet once daily. 400 g 2 Active Insulin Aspart 100 UNIT/ML Injection Solution [...] ons:Heart failure, systolic, due to idiopathic cardiomyopathy ([facility]),S/P aortic valve replacement,HTN, goal below 140/80,Dyslipidem ia, goal LDL below 70 Take 1 tablet by mouth daily to prevent heart attack/stroke, protect kidney, and cholesterol 90 Tablet Active Clopidogrel Bisulfate 75 MG Oral Tablet [...] as needed for Headache. 30 Capsule Active Fluticasone Propionate 50 MCG/ACT Nasal Suspension [...] [facility]) Inject 36 Units under the skin in the morning. 18 mL 3 024 Active Klayesta 023436 UNIT/GM External Powder (Nystatin)Indicat ions:Candidal intertrigo APPLY TOPICALLY TO AFFECTED AREA 3 TIMES A DAY 60 g 1 024 Active Metoprolol Tartrate 50 MG Oral [...] Tablet before bedtime. 60 Tablet 024 Active Omnipod 5 G6 Intro (Gen 5) Kit Use as directed. Use to delivery insulin via insulin pump 1 Kit 5 024 2023 Discontinued documented as of this encounter (statuses as of 08/12/2024) Active Problems Problem Noted Date Diagnosed Date [...] Acting Insulin o GLP-1 Agonist (ex: Victoza, Premaity, Ozempic) o Other: long actin insulin DM Secondary Prevention o CORINA Inhibitor / ARB o Moderate-High Intensity Statin o Aspirin Cystoid macular edema of right eye 09/28/2020 Coronary artery disease invo lving [place] coronary artery of [place] heart without angina pectoris 12/16/2019 Assessment & [...] as of this encounter (statuses as of 08/12/2024) Resolved Problems Problem Noted Date Diagnosed Date [...] 12/21/2016 Diabetes mellitus 01/05/2014 12/21/2016 LEYVA RESEARCH OTHER*[id number] 01/05/2014 12/21/2016 Axillary pain 11/03/2013 12/21/2016 Obesity, [...] cath 09/201008/26/2011 12/21/2016 FOLLOWING SURGERY, UNSPECIFI ED ([facility] 08/25/2011) 08/26/2011 12/21/2016 ADVANCE DIRECTIVE INFORMATION 04/17/2011 12/21/2016 Overview (01/21/2010): Yes, Patient instructed to provide copy of advance directive for provider to review and to be scanned into Electronic Medical Record ADVANCE DIRECTIVE INFORMATION 03/01/2011 12/21/2016 Overview (03/01/2011): Yes, Patient instructed to provide copy of advance directive for provider to review and to be scanned into Electronic Medical Record [facility] V710 Clinical Trial*[id number] 12/22/2010 04/14/2011 S/P aortic valve replacement 12/01/2010 08/26/2011 S/P AORTIC VALVE REPLACEMENT - #25 pericardial Hernandez valve 11/01/2010 06/28/2018 Overview (11/02/2010): Aortic valve replacement with #25 pericardial Hernandez valve, model 2800TFX, serial number [id number] (Dr. Walker) [facility] V710 Clinical Trial*[id number] 10/18/2010 11/21/2010 Type 2 diabetes mellitus wit [...] as of this encounter (statuses as of 08/12/2024) Immunizations Name Administration Dates Next Due COVID-19 mRNA, LNP-s, No Pre serve, 2-Dose Series (Moderna) 10/25/2021,02/16/2021,01/18/2021 HEP A - Hepatitis A (Adult > 18 yrs) 06/07/2018, 12/05/2017 Hepatitis B, 20+ yrs 06/07/2018,01/08/20 18,12/05/2017,06/15,10/27/2013,09/12/2013 PPD 10/26/2019,10/17/2019 Pneumococcal Conjugate Vacci ne, 20-valent ([id number]) 06/22/2023 Pneumococcal Polysaccharide PPV23 (Pneumovax) 01/02/2008 Seasonal [...] Job Start Date 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 [employer] Not on file Not on fi le Not on file 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.] documented in this encounter Progress Notes * Gregory Rausch MD - 08/12/2024 10:42 AM EST SUBJECTIVE: Jovita Rose is a 63 year old female. Chief Complaint Patient presents with Follow Up Pt here for 6 month follow up, pt states she is having diarrhea and is concerned it is related to cdiff. HPI: This is an extremely medically complex 63 year old female here today unaccompanied for her routine 6 month follow up. She complains of liquid diarrhea for the past 5 days. She was treated for C. Diff a couple of timesthis summer. She had a normal colonoscopy. She is on many medications and compliance has been an issue in the past. [facility] has been peripherally involved of late. She states they haven't been over the see her in "a few months." She continues to use her walker to help with ambulation. Her chronic problems are all stable with current treatment. Her health maintenance is up to date. Patient Active Problem List Diagnosis Dyslipidemia DANYELLE [...] Medical marijuana use Coronary artery disease involving [place] coronary artery of [place] heart without angina pectoris Cystoid macular edema [...] (HCC) Polyneuropathy associated with underlying disease (HCC) Current Outpatient Medications Medication Sig Dispense Refill aspirin enteric coated 81 MG TBEC Take 1 Tab by mouth daily. 90 Tab 11 AZO Cranberry 250-30 MG Oral Tablet Take 1 Tablet by mouth in the morning and 1 Tablet before bedtime. Melatonin 10 MG Oral Capsule Take 1 [...] 1 Tablet before bedtime. 180 Tablet 3 Aquaphor External Ointment Apply topically [...] once a week. Tuesdays) 9 mL 1 Uisvlmvggp-Nlyarfx-Zkovxxpv 50-325-40 MG Oral Capsule (Fiorinal) Take 1 Capsule by mouth every 4 hours as needed for Headache. 30 Capsule 0 Fluticasone Propionate 50 MCG/ACT Nasal Suspension (Flonase) Administer 2 Sprays into each nostril in the morning. 16 g 3 Tresiba FlexTouch 200 UNIT/ML Subcutaneous Solution Pen-injector (Insulin Degludec) Inject 36 Unitsunder the skin in the morning. 18 mL 3 Klayesta 864230 UNIT/GM External Powder (Nystatin) APPLY TOPICALLY TO [...] 1 Tablet before bedtime. 60 Tablet 0 BD Glucose 5 GM Oral Tablet Chewable (Glucose) 3 every 15 minutes until glucose is > 100 mg/dL for hypoglycemia E11.9 100 Tab 3 WebNotesTouch Verio w/Device Kit Use up to 4 times a day E11.9 1 Kit 0 Ceracuch DelVindicia Lancets 33G TEST 4 TIMES DAILY DIRECTED, E11.9 400 Each 3 WebNotesTouch Verio In Vitro Strip (Glucose Blood) Use [...] as directed as needed 200 Each 5 No current facility-administered medications for this visit. Allergy: Review of patient's allergies indicates: Allergen Reactions Adhesive Tape Can tolerate band-aids Glycerin Other (Please comment) Topical agents with glycein-burning & itching Lactose Dairy - gas Lisinopril Cough Monosodium Glutamate Edema Other Hands and feet Pcn [Penicillins] Rash OBJECTIVE: BP 118/64 | Pulse 76 | Temp 98.9 F (37.2 C) | Resp 18 | Ht 4' 11" (1.499 m) | Wt 153 lb (69.4 kg) | LMP 04/07/2011 | BMI 30.90 kg/m | BSA 1.7 m Gen: uses wheeled walker Lungs: ctab Heart: rrr, + systolic murmur over aortic area Abdomen: soft, hyperactive bowel sounds, non-tender Ext: no edema ASSESSMENT AND PLAN: (K52.9) Chronic diarrhea (primary encounter diagnosis) Plan: GASTROINTESTINAL PATHOGEN PANEL, STOOL, Dificid 200 MG Oral Tablet (Fidaxomicin), GASTROINTESTINAL PATHOGEN PANEL, STOOL, CLOSTRIDIUM DIFFICILE, PCR -will treat with dificid until cultures return (E11.22, N18.31, Z79.4) Type 2 diabetes mellitus with stage 3a chronic kidney disease, with long-term current use of insulin (HCC) Plan: continue present mgmt (E11.9) Type 2 diabetes mellitus with hemoglobin A1c goal of less than 8.0% (HCC) Plan: continue present mgmt (E11.51, Z79.4) Type 2 diabetes mellitus with diabetic peripheral angiopathy without gangrene, withlong-term current use of insulin (HCC) Plan: stable (E78.5) Dyslipidemia Plan: stable (E03.9) Acquired hypothyroidism Plan: euthyroid (G47.33) DANYELLE on CPAP Plan: continue cpap (Z95.2) S/P TAVR (transcatheter aortic valve replacement) Plan: stable (I10) HTN, goal below 130/80 Plan: stable (I25.10) Coronary artery disease involving [place] coronary artery of [place] heart without angina pectoris Plan: continue medical mgmt (I48.0) Paroxysmal atrial fibrillation (HCC) Plan: continue medical mgmt (K75.81) LEYVA (nonalcoholic steatohepatitis) Plan: stable (I12.9, N18.31) Hypertensive kidney disease with stage 3a chronic kidney disease (HCC) Plan: stable (F40.10) Social anxiety disorder Plan: stable (F25.0) Schizoaffective disorder, bipolar type (HCC) Plan: stable (Z79.899) Medical marijuana use Plan: noted (F42.3) Hoarding disorder Plan: I am not aware of this but it was entered in the chart by [facility] (Z85.038) History of colon cancer Plan: noted (Z85.3) History of breast cancer Plan: noted (Z90.13) H/O bilateral mastectomy Plan: noted Follow up in 6 month(s). No other complaints were offered at this time. Gregory Rausch MD documented in this encounter Plan of Treatment Upcoming Encounters Date Type Department Care Team (Late st Contact Info) Description 08/12/2024 4:00 PM EST Home Visit [facility], [facility] [address] [place] [address] Zurdo Christina, PRABHA [address] [place] [address] 08/19/2024 9:00 AM EST Office Visit Pharmacy, [facility] [address] [place] [address] Pharmacist1, [facility] [address] [facility] [place] [address] 09/01/2024 9:20 AM EST Office Visit Podiatry [facility] [address] [place] [address] Valerie Aguilar DPIrina [address] [place] [address] 09/09/2024 10:00 AM EST Scheduled Telephone [facility], [facility] [address] [facility] [place] [address] Lakesha King, MITCHELLN [address] [facility] [place] [address] 11/03/2024 11:00 AM EST Office Visit [facility] [address] [place] [id number] Christina Birch, [address] [place] [address] 11/04/2024 9:30 AM EST Office Visit Gastroenterology, [facility] [address] [place] [address] Tia Taylor CRNP [address] [place] [address] 01/09/2025 11:15 AM EDT Office Visit Ophthalmology, [place] [address] [place] [address] Ramsey Burnett DO [address] [place] [address] 01/26/2025 11:40 AM EDT Office Visit Nephrology, [facility] [address] [place] [address] Fidelina Baumann MD [address] [place] [address] Scheduled Orders Name Type Priority Associated Diagnoses Orde r Schedule GASTROINTESTINAL PATHOGEN PANEL, STOOL Lab Routine Chronic diarrhea Expected: 08/12/2024 (Approximate), Expires: 08/12/2025 GASTROINTESTINAL PATHOGEN PANEL, STOOL Lab Routine Chronic diarrhea Expected: 08/12/2024 (Approximate), Expires: 08/12/2025 CLOSTRIDIUM DIFFICILE, PCR Lab Routine Chronic diarrhea Expected: 08/12/2024 (Approximate), Expires: 08/12/2025 Scheduled Procedures Name Priority Associated Diagnoses Date/Ti [...] 10/25/2021, 02/16/2021, 01/18/2021 CKD PHOS USE SMARTSET 09810 06/18/202405/26, 06/16/2023, 06/15/2023, Additional history exists HbA1c 08/01/2024 01/30/2024, 08/25, 07/31/2023, Additional history exists Diabetic Eye Exam 09/13/2024 09/13/2023, , 09/13/2023, Additional history exists B-12 09/18/2024 09/18/2023, 08/24, 2020, Additional history exists GFR 11/01/2024 05/01/2024, 12/23, 10/15/2023, Additional history exists Albumin/Creatinine Ratio 01/07/2025 024, 03/09/2023, 12/22/2022, Additional history exists CKD HGB USE SMARTSET 88307 01/07/202501/07, 01/08/2024, 10/15/2023, Additional history exists TSH [...] this encounter Medical Devices Implanted Type Area Brass Pourer Device Identifier Shelf Expiration Date Model / Serial / Lot Cath Roselia Single Lumen - [id number] Implanted:Qty : 1 on 03/12/2008 at OR [facility] Left: Chest [facility] [place] *DO NOT USE* 07/25/2012 21-4053-24 / / [id number] Sut Steel 6 M654g - [id number] Implanted:Qty : 1 on 11/01/2010 at OR [facility] N/A: Chest DO NOT USE M654G / / Sut Steel 6 M654g - [id number] Implanted:Qty : 1 on 11/01/2010 at OR [facility] N/A: Chest DO NOT USE M654G / / Valve Tarsha Aortic [id number] - [id number] Implanted:Qty : 1 on 11/01/2010 at OR [facility] N/A: Heart [employer] DANIEL 05/20/2012 [id number] / / [id number] Description:[email or web address] Mesh Soft [id number] - [id number] Implanted:Qty : 1 on 10/10/2019 by Gigi Hendrickson MD at OR [facility] N/A: Abdomen CR BARD : DAVOL [id number] 05/21/2024 [id number] / / [id number] Lens 22.5 Sn60wf - [id number] - [id number] Implanted:Qty : 1 on 09/15/2020 by Cece Roland MD at [facility] Right: Eye IVA : SURGICAL [id number] 05/13/2025 SN60 WF.225 / [id number] / [id number] Lens 21.5 Sn60wf - [id number] - [id number] Implanted:Qty : 1 on 12/19/2023 by Ramsey Burnett DO at OR [facility] Left: Eye IVA : SURGICAL 12/03/2024 SN60WF.2 15 / [id number] / documented as of this encounter Visit Diagnoses Diagnosis Dysuria- Primary Atherosclerosis of aorta (HCC) Atherosclerosis of aorta Type 2 diabetes mellitus with hemoglobin A1c goal of less than 7.0% (HCC) DANYELLE on CPAP Obstructive sleep apnea (adult) (pediatric) Hypertensive heart and kidney disease with chronic diastolic congestive heart failure and stage 3a chronic kidney disease ([facility]) S/P TAVR (transcatheter aortic valve replacement) Heart valve replaced by other means Atherosclerosis of [place] coronary artery of [place] heart without angina pectoris Schizoaffective disorder, bipolar type (HCC) Schizoaffective disorder, unspecified condition LEYVA (nonalcoholic steatohepatitis) Other chronic nonalcoholic liver disease Type 2 diabetes mellitus with diabetic mononeuropathy, with long-term current use of insulin (HCC)- Primary Atherosclerosis of [place] coronary artery of [place] heart without angina pectoris Hypertensive heart and [...] of insulin (HCC) Coronary artery disease involving [place] coronary artery of [place] heart without angina pectoris HTN, goal below [...] Mood disorder (HCC) Unspecified episodic mood disorder Chronic diarrhea- Primary Diarrhea Type 2 diabetes mellitus with stage 3a chronic kidney disease, with long-term current use of insulin (HCC) Type 2 diabetes mellitus with hemoglobin A1c goal of less than 8.0% (HCC) Type 2 diabetes mellitus with diabetic peripheral angiopathy without gangrene, with long-term current use of insulin (HCC) Dyslipidemia Other and unspecified hyperlipidemia Acquired hypothyroidism Unspecified hypothyroidism DANYELLE on CPAP Obstructive sleep apnea (adult) (pediatric) S/P TAVR (transcatheter aortic valve replacement) Heart valve replaced by other means HTN, goal below 130/80 Unspecified essential hypertension Coronary artery disease involving [place] coronary artery of [place] heart without angina pectoris Paroxysmal atrial fibrillation (HCC) Atrial fibrillation LEYVA (nonalcoholic steatohepatitis) Other chronic nonalcoholic liver disease Hypertensive kidney disease with stage 3a chronic kidney disease (HCC) Social anxiety disorder Social phobia Schizoaffective disorder, bipolar type (HCC) Schizoaffective disorder, unspecified condition Medical marijuana use Encounter for long-term (current) use of other medications Hoarding disorder History of colon cancer Personal history of malignant neoplasm of large intestine History of breast cancer Personal history of malignant neoplasm of breast H/O bilateral mastectomy Acquired absence of breast and nipple documented in this encounter Advance Directives * [...] statute hierarchy) Jovita Yamile Adult Child Health Baton Teacher resentative (appointed verbally by patient or by statute hierarchy) Care Teams Investment Director Relationship Specialty Start Date End Date Gregory Rausch MD [address] [place] [id number] PCP - General Family Medicine 02/12/20 documented as of this encounter
--- OUTSIDE RECORDS SUMMARY | 2024-10-02 03:23 | External Medical Summary | Summary of Care ---
Author Name Unknown Organization [facility] Address [address] [place] [address] Phone [phone] Care Team Providers Care Grinder Needle Tip Name Role Phone Gregory Rausch MD Primary Care Provider [phone] Encounter Details Date Type Department Care Team (Late st Contact Info) Description 07/29/2024 Telephone Family Practice [facility] [address] [facility] [place] [address] Jovita Luna CRNP [address] [facility] [address] Allergies Active Allergy Reactions Criticality Noted Date Comments Adhesive Tape 07/02/2017 Can tolerate band-aids Glycerin Other (Please comment) 03/12/2008 Topical agents with glycein-burning & itching Lactose 12/09/2014 Dairy - gas Lisinopril Cough 01/21/2010 Monosodium Glutamate Edema Other 03/12/2008 Hands and feet Penicillins Rash 11/14/2007 documented as of this encounter (statuses as of 07/31/2024) Medications Medication Sig Dispensed Refills Start Date [...] at goal ([facility]) 3 every 15 minutes until glucose [...] Capsules by mouth in the morning. Active TwentyFeetTouch Verio In Vitro Strip (Glucose Blood) Use [...] directed as needed 200 Each 03/14/2024 Active Aquaphor External Ointment Apply topically to affected area as needed for Dry Skin. Apply to face 420 g 01/10/2024 Active Ammonium Lactate 12 % External Lotion (Lac-Hydrin) Apply to both feet once daily. 400 g 2 01/10/2024 Active Insulin Aspart 100 UNIT/ML Injection Solution (NovoLOG)Indications :Type 2 diabetes mellitus with hemoglobin A1c goal of less than 7.0% ([facility]) Use up to 50 units per day in Omnipod. 03/31/2024 Active Omnipod 5 G6 Intro (Gen 5) Kit Use as directed. Use to delivery insulin via insulin pump 1 Kit 5 04/10/2024 Active Additional Information Patient not taking.Reported on 07/10/2024 Loperamide HCl 2 MG Oral Capsule (Imodium A-D) Take 1 Capsule by mouth 4 times a day as needed for Diarrhea. Active Saccharomyces boulardii 250 MG Oral Capsule (Florastor) Take 1 Capsule by mouth in the morning and 1 Capsule before bedtime. 60 Capsule 05/06/2024 Active DULoxetine HCl 20 MG Oral Capsule Delayed Release Particles (Cymbalta) Take 1 Capsule by mouth in the morning. 30 Capsule 1 06/02/2024 Active Atorvastatin Calcium 40 MG Oral Tablet (Lipitor)Indications :Heart failure, systolic, due to idiopathic cardiomyopathy (HCC),S/P aortic valve replacement,HTN, goal below 140/80,Dyslipidemia, goal LDL below 70 Take 1 tablet by mouth daily to prevent heart attack/stroke, protect kidney, and cholesterol 90 Tablet 06/16/2024 Active Clopidogrel Bisulfate 75 MG Oral Tablet (pLAVix) Take 1 Tablet by mouth in the morning. 90 Tablet 06/16/2024 Active Gabapentin 300 MG Oral Capsule (Neurontin) Take 1 Capsule by mouth in the morning and 1 Capsule at noon and 1 Capsule before bedtime. 90 Capsule 2 06/16/2024 Active Levothyroxine Sodium 75 MCG Oral Tablet (Levoxyl)Indications :Hypothyroidism TAKE 1 TAB BY MOUTH DAILY FIRST THING IN AM, AT LEAST 30 MIN PRIOR TO BREAKFAST OR OTHER MEDICATIONS 90 Tablet 06/16/2024 Active Meclizine HCl 25 MG Oral Tablet (Antivert)Indication s:Muscle tension headache Take 2 Tablets by mouth 2 times a day. 360 Tablet 06/16/2024 Active Ozempic (2 MG/DOSE) 8 MG/3ML Subcutaneous Solution Pen-injector (Semaglutide (2 MG/DOSE))Indications :weekly on fridays Inject 2 mg under the skin once a week. 9 mL 1 06/16/2024 Active Additional Information Patient taking differently:2 mg Subcutaneous QWEEK,Tuesdays, Indications: weekly on fridays, Reported on 07/09/2024 Rdcdnrobtz-Ofijihi-T affeine 50-325-40 MG Oral Capsule (Fiorinal)Indication s:Acute intractable tension-type headache Take 1 Capsule by mouth every 4 hours as needed for Headache. 30 Capsule 06/16/2024 Active Fluticasone Propionate 50 MCG/ACT Nasal Suspension (Flonase)Indications :Dizziness Administer 2 Sprays into each nostril in the morning. 16 g 3 06/17/2024 Active Tresiba FlexTouch 200 UNIT/ML Subcutaneous Solution Pen-injector (Insulin Degludec)Indications :Type 2 diabetes mellitus with hemoglobin A1c goal of less than 7.0% ([facility]),Type 2 diabetes mellitus with stage 3a chronic kidney disease, with long-term current use of insulin ([facility]) Inject 36 Units under the skin in the morning. 18 mL 3 06/20/2024 Active Klayesta 852772 UNIT/GM External Powder (Nystatin)Indication s:Candidal intertrigo APPLY TOPICALLY TO AFFECTED AREA 3 TIMES A DAY 60 g 1 06/23/2024 Active Metoprolol Tartrate 50 MG Oral Tablet (Lopressor)Indicatio ns:HTN, goal below 130/80 TAKE 1 TABLET BY MOUTH IN THE MORNING AND BEFORE BEDTIME 180 Tablet 3 06/22/2024 Active Klor-Con M20 20 MEQ Oral Tablet Extended Release (Potassium Chloride ER) TAKE 1 TABLET BY MOUTH EVERY DAY IN THE MORNING 90 Tablet 3 07/28/2024 Active Magnesium Oxide -Mg Supplement 400 (240 Mg) MG Oral Tablet (Mag-Ox)Indications: HTN, goal below 130/80,Chronic heart failure with preserved ejection fraction (HCC),Palpitations,H ypomagnesemia One tablet by mouth daily in the morning 90 Tablet 3 06/25/2024 Active documented as of this encounter (statuses as of 07/31/2024) Active Problems Problem Noted Date Diagnosed Date [...] as of this encounter (statuses as of 07/31/2024) Resolved Problems Problem Noted Date Diagnosed Date Resolved Date Dehydration 06/05/2024 07/29/2024 Confusion 06/05/2024 07/29/2024 Recurrent Clostridium difficile diarrhea 01/23/2024 07/29/2024 Last Assessment & Plan: Finish dificid as [...] 12/21/2016 Diabetes mellitus 01/05/2014 12/21/2016 LEYVA RESEARCH OTHER*[id number] 01/05/2014 12/21/2016 Axillary pain 11/03/2013 12/21/2016 Obesity, [...] be scanned into Electronic Medical Record [facility] V710 Clinical Trial*[id number] 12/22/2010 04/14/2011 S/P aortic valve replacement 12/01/2010 08/26/2011 S/P AORTIC VALVE REPLACEMENT - #25 pericardial Mc valve 11/01/2010 06/28/2018 Overview: Aortic valve replacement with #25 pericardial Mc valve, model 2800TFX, serial number [id number] (Dr. Walker) [facility] V710 Clinical Trial*[id number] 10/18/2010 11/21/2010 Type 2 diabetes mellitus wit [...] as of this encounter (statuses as of 07/31/2024) Immunizations Name Administration Dates Next Due COVID-19 mRNA, LNP-s, No Pre serve, 2-Dose Series (Moderna) 10/25/2021,02/16/2021,01/18/2021 HEP A - Hepatitis A (Adult > 18 yrs) 06/07/2018, 12/05/2017 Hepatitis B, 20+ yrs 06/07/2018,01/08/20 18,12/05/2017,06/15,10/27/2013,09/12/2013 PPD 10/26/2019,10/17/2019 Pneumococcal Conjugate Vacci ne, 20-valent (Ozombhb76) 06/22/2023 Pneumococcal Polysaccharide PPV23 (Pneumovax) 01/02/2008 Seasonal [...] Telephone Encounter - Rufina Sinha LPN - 07/31/2024 8:57 AM EST Sent my g. Confirmed that pt has been recently active on the [employer] chart portal. * Telephone Encounter - Gayle Duncan LPN - 07/30/2024 12:24 PM EST LMOM for a return call * Telephone Encounter - Jovita Luna CRNP - 07/29/2024 3:50 PM EST No infection on xray so will hold off on oral antibiotics for now Follow up with podiatry as discussed documented in this encounter Plan of Treatment Upcoming Encounters Date Type Department Care Team (Late st Contact Info) Description 07/31/2024 11:15 AM EST Office Visit Ophthalmology, [address] [place] [address] Ramsey Burnett, DO [facility] [place] [address] 08/07/2024 2:30 PM EST [facility] 132 [facility] [place] [address] Zurdo Christina, PRABHA 132 [facility] [place] [address] 08/12/2024 9:20 AM EST Office Visit Family Practice [facility] [address] [facility] [place] [address] Gregory [facility]ausch MD [facility] [place] [address] 08/19/2024 9:00 AM EST Office Visit Pharmacy, [facility] 200 [facility] [place] [address] Pharmacist1, [facility] 200 [facility] [place] [address] 09/01/2024 9:20 AM EST Office Visit Podiatry [facility] 132 [facility] [place] [address] Valerie Aguilar, DPM [address] [place] [address] [place] [address] 09/09/2024 10:00 AM EST Scheduled Telephone [facility], [facility] [address] [facility] [place] [address] Lakesha King RDN [address] [facility] [place] [address] 11/03/2024 11:00 AM EST Office Visit [facility] Disorders [facility] 132 [facility] [place] [phone] Christina Birch, [address] [place] [address] 11/04/2024 9:30 AM EST Office Visit Gastroenterology, [facility] [address] [place] [address] Tia Taylor CRNP [address] [place] [address] 01/26/2025 11:40 AM EDT Office Visit Nephrology, [facility] 200 [facility] [place] [address] Fidelina Baumann MD [address] [place] [address] Scheduled Procedures Name Priority Associated Diagnoses Date/Ti mt COLONOSCOPY FLEXIBLE PROXIMAL DIAGNOSTIC Recall History of colon polyps ESOPHAGOGASTRODUODENOSCOPY ( EGD), FLEXIBLE, TRANSORAL, DIAGNOSTIC Recall Cirrhosis (HCC) COLONOSCOPY FLEXIBLE PROXIMAL DIAGNOSTIC Recall Personal history of colonic polyps Health Maintenance Due Date Last Done Comments HIV Screening 1973 Cologuard 12/18/2003 Fecal Occult Blood Test 12/18/2003 DXA Scan 12/18/2023 01/12/2009 COVID-19 Vaccine ( season) 2024 10/25/2021, 02/16/2021, 01/18/2021 CKD PHOS USE SMARTSET 99438 06/18/202405/26, 06/16/2023, 06/15/2023, Additional history exists HbA1c 08/01/2024 01/30/2024, 08/25, 07/31/2023, Additional history exists Diabetic Eye Exam 09/13/2024 09/13/2023, , 09/13/2023, Additional history exists B-12 09/18/2024 09/18/2023, 08/24, 2020, Additional history exists GFR 11/01/2024 05/01/2024, 12/23, 10/15/2023, Additional history exists Albumin/Creatinine Ratio 01/07/2025 024, 03/09/2023, 12/22/2022, Additional history exists CKD HGB USE SMARTSET 25987 01/07/202501/07, 01/08/2024, 10/15/2023, Additional history exists TSH [...] this encounter Medical Devices Implanted Type Area Fork Operator Device Identifier Shelf Expiration Date Model / Serial / Lot Cath Roselia Single Lumen - [id number] Implanted:Qty : 1 on 03/12/2008 at OR [facility] Left: Chest [employer] *DO NOT USE* 07/25/2012 21-4053-24 / / [id number] Sut Steel 6 M654g - [id number] Implanted:Qty : 1 on 11/01/2010 at OR [facility] N/A: Chest DO NOT USE M654G / / Sut Steel 6 M654g - [id number] Implanted:Qty : 1 on 11/01/2010 at OR [facility] N/A: Chest DO NOT USE M654G / / Valve Tarsha Aortic [id number] - [id number] Implanted:Qty : 1 on 11/01/2010 at OR [facility] N/A: Heart [employer] DANIEL 05/20/2012 2800TFX-25 / / [id number] Description:[email or web address] Mesh Soft 35m14il - [id number] Implanted:Qty : 1 on 10/10/2019 by Gigi Hendrickson MD [place] [facility] [place]/A: Abdomen CR BARD : DAVOL [id number] 05/21/2024 [id number] / / [id number] Lens 22.5 Sn60wf - [id number] - [id number] Implanted:Qty : 1 on 09/15/2020 by Renaldo Cook, Cece Acosta MD at OR [facility] Right: Eye IVA : SURGICAL [id number] 05/13/2025 SN60 WF.225 / [id number] / [id number] Lens 21.5 Sn60wf - [id number] - [id number] Implanted:Qty : 1 on 12/19/2023 by Ramsey Burnett DO at OR [facility] Left: Eye IVA : SURGICAL 12/03/2024 SN60WF.2 15 / [id number] / documented as of this encounter [...] statute hierarchy) Jovita Ovalle Adult Child Health Computer Forensics Investigator resentative (appointed verbally by patient or by statute hierarchy) [email or web address] Care Teams Grinder Needle Tip Relationship Specialty Start Date End Date Gregory Rausch MD [address] [place] [address] PCP - General Family Medicine 02/12/20 documented as of this encounter
--- OUTSIDE RECORDS SUMMARY | 2024-10-02 03:23 | External Medical Summary | Summary of Care ---
Author Name Unknown Organization [facility] Address [address] [place] [address] Phone [phone] Care Team Providers Care Coal Yard Supervisor Name Role Phone Gregory Rausch MD Primary Care Provider +[phone] Encounter Details Date Type Department Care Team (Late st Contact Info) Description 07/31/2024 Population Health External Data Unspecified Department Allergies Active Allergy Reactions Criticality Noted Date Comments Adhesive Tape 07/02/2017 Can tolerate band-aids Glycerin Other (Please comment) 03/12/2008 Topical agents with glycein-burning & itching Lactose 12/09/2014 Dairy - gas Lisinopril Cough 01/21/2010 Monosodium Glutamate Edema Other 03/12/2008 Hands and feet Penicillins Rash 11/14/2007 documented as of this encounter (statuses as of 08/07/2024) Medications aspirin enteric coated 81 MG TBECIndications:Ao rtic valve disorder Take 1 Tab by mouth daily. 90 Tab 11 09/30/19 19 Active AZO Cranberry 250-30 MG Oral Tablet Take 1 Tablet by mouth in the morning and 1 Tablet before bedtime. Active BD Glucose 5 GM Oral Tablet Chewable (Glucose)Indicatio ns:DM type 2, not at goal ([facility]) 3 every 15 minutes until [...] 1 Capsule before bedtime. 60 Capsule 05/06/20 Active DULoxetine HCl 20 MG Oral Capsule [...] once a week. 9 mL 1 06/16/20 Active Additional Information Patient taking differently:2 mg [...] use of insulin ([facility]) Inject 36 Units under the skin in the morning. 18 mL 3 06/20/20 24 Active Klayesta 926142 UNIT/GM External Powder (Nystatin)Indicati ons:Candidal intertrigo APPLY [...] as of this encounter (statuses as of 08/07/2024) Active Problems Problem Noted Date Diagnosed Date [...] as of this encounter (statuses as of 08/07/2024) Resolved Problems Problem Noted Date Diagnosed Date [...] 12/21/2016 Diabetes mellitus 01/05/2014 12/21/2016 LEYVA RESEARCH OTHER*[id number] 01/05/2014 12/21/2016 Axillary pain 11/03/2013 12/21/2016 Obesity, [...] to be scanned into Electronic Medical Record [facility] V710 Clinical Trial*[id number] 12/22/2010 04/14/2011 S/P aortic valve replacement 12/01/2010 08/26/2011 S/P AORTIC VALVE REPLACEMENT - #25 pericardial Mc valve 11/01/2010 06/28/2018 Overview (11/02/2010): Aortic valve replacement with #25 pericardial Mc valve, model 2800TFX, serial number [id number] (Dr. Walker) [facility] V710 Clinical Trial*[id number] 10/18/2010 11/21/2010 Type 2 diabetes mellitus wit [...] as of this encounter (statuses as of 08/07/2024) Immunizations Name Administration Dates Next Due COVID-19 mRNA, LNP-s, No Pre serve, 2-Dose Series (Moderna) 10/25/2021,02/16/2021,01/18/2021 HEP A - Hepatitis A (Adult > 18 yrs) 06/07/2018, 12/05/2017 Hepatitis B, 20+ yrs 06/07/2018,01/08/20 18,12/05/2017,06/15,10/27/2013,09/12/2013 PPD 10/26/2019,10/17/2019 Pneumococcal Conjugate Vacci ne, 20-valent (Menueao86) 06/22/2023 Pneumococcal Polysaccharide PPV23 (Pneumovax) 01/02/2008 Seasonal [...] 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 [employer] Not on file Not on fi le Not on file 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 Not on file Not on file [...] Entry Date Author No 11/06/2017 4:30 PM EST Gisela Azevedo, RN documented in this encounter Plan of Treatment Upcoming Encounters Date Type Department Care Team (Late st Contact Info) Description 08/11/2024 4:00 PM EST [facility], [facility] [address] [place] [address] Zurdo Christina, RN [address] [place] [address] 08/12/2024 9:20 AM EST Office Visit Family Practice [facility] 132 [facility] [place] [address] Gregory Rausch MD [address] [place] [address] 08/19/2024 9:00 AM EST Office Visit Pharmacy, [facility] 200 [place] [address] Pharmacist1, [facility] 200 [place] [address] 09/01/2024 9:20 AM EST Office Visit Podiatry [facility] 132 [facility] [place] [address] Valerie Aguilar, [facility] [address] [place] [address] 09/09/2024 10:00 AM EST Scheduled Telephone [facility], [facility] [address] [facility] [place] [address] Lakesha King, ROBERT [address] [facility] [place] [address] 11/03/2024 11:00 AM EST Office Visit Sleep Disorders Ctr [facility] [address] [facility] [place] [id number] Christina Birch DO [address] [place] [address] 11/04/2024 9:30 AM EST Office Visit Gastroenterology, [facility] [address] [place] [address] Tia Taylor CRNP [address] [place] [address] 01/09/2025 11:15 AM EDT Office Visit [facility], [place] [facility] [place] [address] Ramsey Burnett DO [facility] [place] [address] 01/26/2025 11:40 AM EDT Office Visit Nephrology, [facility] 200 [facility] [place] [address] Fidelina Baumann MD 200 [facility] [place] [address] Scheduled Procedures Name Priority Associated Diagnoses Date/Ti [...] 10/25/2021, 02/16/2021, 01/18/2021 CKD PHOS USE SMARTSET 43092 06/18/202405/26, 06/16/2023, 06/15/2023, Additional history exists HbA1c 08/01/2024 01/30/2024, 08/25, 07/31/2023, Additional history exists Diabetic Eye Exam 09/13/2024 09/13/2023, , 09/13/2023, Additional history exists B-12 09/18/2024 09/18/2023, 08/24, 2020, Additional history exists GFR 11/01/2024 05/01/2024, 12/23, 10/15/2023, Additional history exists Albumin/Creatinine Ratio 01/07/2025 024, 03/09/2023, 12/22/2022, Additional history exists CKD HGB USE SMARTSET 94527 01/07/202501/07, 01/08/2024, 10/15/2023, Additional history exists TSH [...] this encounter Medical Devices Implanted Type Area Family Day Carer Device Identifier Shelf Expiration Date Model / Serial / Lot Cath Roselia Single Lumen - [id number] Implanted:Qty : 1 on 03/12/2008 at OR [facility] Left: Chest [employer] *DO NOT USE* 07/25/2012 21-4053-24 / / [id number] Sut Steel 6 M654g - [id number] Implanted:Qty : 1 on 11/01/2010 at OR [facility] N/A: Chest DO NOT USE M654G / / Sut Steel 6 M654g - [id number] Implanted:Qty : 1 on 11/01/2010 at OR [facility] N/A: Chest DO NOT USE M654G / / Valve Tarsha Aortic [id number] - [id number] Implanted:Qty : 1 on 11/01/2010 at OR [facility] N/A: Heart [employer] DANIEL 05/20/2012 2800TFX-25 / / [id number] Description:[email or web address] Mesh Soft 51o20ra - [id number] Implanted:Qty : 1 on 10/10/2019 by Gigi Hendrickson MD at OR [place] N/A: Abdomen CR BARD : DAVOL [id number] 05/21/2024 [id number] / / [id number] Lens 22.5 Sn60wf - [id number] - [id number] Implanted:Qty : 1 on 09/15/2020 by Renaldo Cook, Cece Acosta MD at [facility] Right: Eye IVA : SURGICAL [id number] 05/13/2025 SN60 WF.225 / [id number] / [id number] Lens 21.5 Sn60wf - [id number] - [id number] Implanted:Qty : 1 on 12/19/2023 by Ramsey Burnett DO at OR [facility] Left: Eye IVA : SURGICAL 12/03/2024 SN60WF.2 15 / [id number] / documented as of this encounter [...] statute hierarchy) Jovita Ovalle Adult Child Health Noc Analyst resentative (appointed verbally by patient or by statute hierarchy) [email or web address] Care Teams Coal Yard Supervisor Relationship Specialty Start Date End Date Gregory Rausch MD [address] [place] [address] PCP - General Family Medicine 02/12/20 documented as of this encounter
--- OUTSIDE RECORDS SUMMARY | 2024-10-02 03:23 | External Medical Summary | Summary of Care ---
Author Name Unknown Organization [facility] Address [address] [place] [address] Phone [phone] Care Team Providers Care Metaphysics Teacher Name Role Phone Gregory Rausch MD Primary Care Provider [phone] [phone] Encounter Details Date Type Department Care Team (Late st Contact Info) Description 05/05/2024 Telephone Family Practice [facility] [address] [place] [address] Gregory Rausch MD [address] [place] [address] Allergies Active Allergy Reactions Criticality Noted Date Comments Adhesive Tape 07/02/2017 Can tolerate band-aids Glycerin Other (Please comment) 03/12/2008 Topical agents with glycein-burning & itching Lactose 12/09/2014 Dairy - gas Lisinopril Cough 01/21/2010 Monosodium Glutamate Edema Other 03/12/2008 Hands and feet Penicillins Rash 11/14/2007 documented as of this encounter (statuses as of 08/04/2024) Medications aspirin enteric coated 81 MG TBECIndications :Aortic valve disorder Take 1 Tab by mouth daily. 90 Tab 11 9 Active AZO Cranberry 250-30 MG Oral Tablet Take 1 Tablet by mouth in the morning and 1 Tablet before bedtime. Active BD Glucose 5 GM Oral Tablet Chewable (Glucose)Indica tions:DM type 2, not at goal ([facility]) 3 every 15 minutes until glucose is [...] Capsules by mouth in the morning. Active VB RagsTouch Verio In Vitro Strip (Glucose Blood) Use [...] insulin pump 1 Kit 5 4 Active Additional Information Patient not taking.Reported on 07/10/2024 Loperamide HCl 2 MG Oral Capsule (Imodium A-D) Take 1 Capsule by mouth 4 times a day as needed for Diarrhea. Active documented as of this encounter (statuses as of 08/04/2024) Active Problems Problem Noted Date Diagnosed Date [...] 09/28/2020 Coronary artery disease invo lving [place] coronary artery of [place] heart without angina pectoris 12/16/2019 Assessment & [...] as of this encounter (statuses as of 08/04/2024) Resolved Problems Problem Noted Date Diagnosed Date [...] failure and stage 3a chronic kidney disease 03/09/2022 07/2 02/2023 Assessment & Plan (03/16/2023 4:03 PM [...] 12/21/2016 Diabetes mellitus 01/05/2014 12/21/2016 LEYVA RESEARCH OTHER*[id number] 01/05/2014 12/21/2016 Axillary pain 11/03/2013 12/21/2016 Obesity, [...] Electronic Medical Record [facility] V710 Clinical Trial*[id number] 12/22/2010 04/14/2011 S/P aortic valve replacement 12/01/2010 08/26/2011 S/P AORTIC VALVE REPLACEMENT - #25 pericardial Mc valve 11/01/2010 06/28/2018 Overview (11/02/2010): Aortic valve replacement with #25 pericardial Mc valve, model 2800TFX, serial number [id number] (Dr. Walker) [facility] V[facility] Clinical Trial*[id number] 10/18/2010 11/21/2010 Type 2 diabetes mellitus wit [...] as of this encounter (statuses as of 08/04/2024) Immunizations Name Administration Dates Next Due COVID-19 mRNA, LNP-s, No Pre serve, 2-Dose Series (Moderna) 10/25/2021,02/16/2021,01/18/2021 HEP A - Hepatitis A (Adult > 18 yrs) 06/07/2018, 12/05/2017 Hepatitis B, 20+ yrs 06/07/2018,01/08/20 18,12/05/2017,06/15,10/27/2013,09/12/2013 PPD 10/26/2019,10/17/2019 Pneumococcal Conjugate Vacci ne, 20-valent ([id number]) 06/22/2023 Pneumococcal Polysaccharide PPV23 (Pneumovax) 01/02/2008 Seasonal [...] Industry 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 [address] [place] [address] Pharmacist1, [facility] [address] [place] [address] 09/01/2024 9:20 AM EST Office Visit Podiatry [facility] [address] [facility] [place] [address] Valerie Aguilar, DPM [address] [facility] [place] [address] 09/09/2024 10:00 AM EST Scheduled Telephone [facility], [facility] [address] [facility] [place] [address] Lakesha King, RDN [address] [facility] [place] [address] 11/03/2024 11:00 AM EST Office Visit Sleep Disorders Ctr [facility] [address] [place] [phone] Christina Birch DO [address] [place] [address] 11/04/2024 9:30 AM EST Office Visit Gastroenterology, [facility] [address] [facility] [place] [address] Tia Taylor CRNP [address] [place] [address] 01/26/2025 11:40 AM EDT Office Visit Nephrology, [facility] [address] [place] [address] Fidelina Baumann MD [address] [facility] [place] [address] Scheduled Procedures Name Priority Associated Diagnoses Date/Ti [...] 10/25/2021, 02/16/2021, 01/18/2021 CKD PHOS USE SMARTSET 53803 06/18/202405/26, 06/16/2023, 06/15/2023, Additional history exists HbA1c 08/01/2024 01/30/2024, 08/25, 07/31/2023, Additional history exists Diabetic Eye Exam 09/13/2024 09/13/2023, , 09/13/2023, Additional history exists B-12 09/18/2024 09/18/2023, 08/24, 2020, Additional history exists GFR 11/01/2024 05/01/2024, 12/23, 10/15/2023, Additional history exists Albumin/Creatinine Ratio 01/07/2025 024, 03/09/2023, 12/22/2022, Additional history exists CKD HGB USE SMARTSET 43836 01/07/202501/07, 01/08/2024, 10/15/2023, Additional history exists TSH [...] this encounter Medical Devices Implanted Type Area House Director Device Identifier Shelf Expiration Date Model / Serial / Lot Cath Roselia Single Lumen - [id number] Implanted:Qty : 1 on 03/12/2008 at OR [facility] Left: Chest [facility] *DO NOT USE* 07/25/2012 21-4053-24 / / [id number] Sut Steel 6 M654g - [id number] Implanted:Qty : 1 on 11/01/2010 at OR [facility] N/A: Chest DO NOT USE M654G / / Sut Steel 6 M654g - [id number] Implanted:Qty : 1 on 11/01/2010 at OR [facility] N/A: Chest DO NOT USE M654G / / Valve Tarsha Aortic [id number] - [id number] Implanted:Qty : 1 on 11/01/2010 at OR [facility] N/A: Heart MC [employer] DANIEL 05/20/2012 2800TFX-25 / / [id number] Description:[email or web address] Mesh Soft 52h13jo - [id number] Implanted:Qty : 1 on 10/10/2019 by Gigi Hendrickson MD at [facility] N/A: Abdomen CR BARD : DAVOL [id number] 05/21/2024 [id number] / / [id number] Lens 22.5 Sn60wf - [id number] - [id number] Implanted:Qty : 1 on 09/15/2020 by Renaldo Cook, Cece Acosta MD at OR [facility] Right: Eye IVA : SURGICAL [id number] 05/13/2025 SN60 WF.225 / [id number] / [id number] Lens 21.5 Sn60wf - [id number] - [id number] Implanted:Qty : 1 on 12/19/2023 by Ramsey Burnett DO at OR [facility] Left: Eye IVA : SURGICAL 12/03/2024 SN60WF.2 15 / [id number] [id number] / documented as of this encounter [...] statute hierarchy) Jovita Ovalle Adult Child Health Post Office Manager resentative (appointed verbally by patient or by statute hierarchy) Care Teams Metaphysics Teacher Relationship Specialty Start Date End Date Gregory Rausch MD [address] [place] [address] PCP - General Family Medicine 02/12/20 documented as of this encounter
--- OUTSIDE RECORDS SUMMARY | 2024-10-02 03:23 | External Medical Summary | Summary of Care ---
Author Name Unknown Organization [facility] Address [address] [place] [address] Phone [phone] Care Team Providers Care Associate Store Manager Name Role Phone Gregory Rausch MD Primary Care Provider [phone] [phone] Reason for Visit * Reason Onset Date Comments [facility]: Engagement 07/31/2024 Encounter Details Date Type Department Care Team (Late st Contact Info) Description 07/31/2024 Telephone [facility], [facility] [address] [place] [address] Laya Craig, DANYELLE [address] [place] [address] [facility]: Engagement Allergies Active Allergy Reactions Criticality Noted Date [...] as needed 200 Each 5 03/14/2024 Active Aquaphor External Ointment Apply topically [...] Indications: weekly on fridays, Reported on 07/09/2024 Kispnnppza-Kuorini-Q affeine 50-325-40 MG Oral Capsule (Fiorinal)Indication s:Acute [...] morning. 18 mL 3 06/20/2024 Active Klayesta 539452 UNIT/GM External Powder (Nystatin)Indication s:Candidal intertrigo APPLY [...] 130/80,Chronic heart failure with preserved ejection fraction ([facility]),Palpitations,H ypomagnesemia One tablet by mouth daily in [...] 12/21/2016 Diabetes mellitus 01/05/2014 12/21/2016 LEYVA RESEARCH OTHER*[id number] 01/05/2014 12/21/2016 Axillary pain 11/03/2013 12/21/2016 Obesity, [...] 09/201008/26/2011 12/21/2016 FOLLOWING SURGERY, UNSPECIFI ED ([facility] BSO 08/25/2011) 08/26/2011 12/21/2016 ADVANCE DIRECTIVE [...] Record [facility] V710 Clinical Trial*[id number] 12/22/2010 04/14/2011 S/P aortic valve replacement 12/01/2010 08/26/2011 S/P AORTIC VALVE REPLACEMENT - #25 pericardial Mc valve 11/01/2010 06/28/2018 Overview: Aortic valve replacement with #25 pericardial Mc valve, model 2800TFX, serial number [id number] (Dr. Walker) [facility] V710 Clinical Trial*[id number] 10/18/2010 11/21/2010 Type 2 diabetes mellitus wit [...] PPD 10/26/2019,10/17/2019 Pneumococcal Conjugate Vacci ne, 20-valent (Bmvrjvy81) 06/22/2023 Pneumococcal Polysaccharide PPV23 (Pneumovax) 01/02/2008 Seasonal [...] Telephone Encounter - Laya Craig OSA - 07/31/2024 12:28 PM EST Per Request reschedule appt.. Called s/w pt she advised 08/11 at 4:00pm is a good date and time. documented in this encounter Plan of Treatment Upcoming Encounters Date Type Department Care Team (Late st Contact Info) Description 08/11/2024 4:00 PM EST Home Visit [facility] [address] [address] Zurdo Christina, RN [address] [place] [address] 08/12/2024 9:20 AM EST Office Visit Family Practice [facility] [address] [place] [address] Gregory Rausch MD [address] [place] [address] 08/19/2024 9:00 AM EST Office Visit Pharmacy, [facility] [address] [facility] [place] [address] Pharmacist1, [facility] [address] [facility] [place] [address] 09/01/2024 9:20 AM EST Office Visit Podiatry [facility] [address] [facility] [place] [address] Valerie Aguilar, DPM [address] [place] [address] 09/09/2024 10:00 AM EST Scheduled Telephone [facility], [facility] [address] [place] [facility] [place] [address] Lakesha King, ROBERT [address] [place] [facility] [place] [address] 11/03/2024 11:00 AM EST Office Visit Sleep Disorders Ctr [facility] [address] [place] [phone] Christina Birch DO 132 [place] [address] 11/04/2024 9:30 AM EST Office Visit Gastroenterology, [facility] [address] [facility] [place] [address] Tia Taylor CRNP 132 [place] [address] 01/26/2025 11:40 AM EDT Office Visit Nephrology, [facility] [address] [facility] [place] [address] Fidelina Baumann MD [address] [facility] [place] [address] Scheduled Procedures Name Priority Associated Diagnoses Date/Ti [...] 10/25/2021, 02/16/2021, 01/18/2021 CKD PHOS USE SMARTSET 35100 06/18/202405/26, 06/16/2023, 06/15/2023, Additional history exists HbA1c 08/01/2024 01/30/2024, 08/25, 07/31/2023, Additional history exists Diabetic Eye Exam 09/13/2024 09/13/2023, , 09/13/2023, Additional history exists B-12 09/18/2024 09/18/2023, 08/24, 2020, Additional history exists GFR 11/01/2024 05/01/2024, 12/23, 10/15/2023, Additional history exists Albumin/Creatinine Ratio 01/07/2025 024, 03/09/2023, 12/22/2022, Additional history exists CKD HGB USE SMARTSET 85182 01/07/202501/07, 01/08/2024, 10/15/2023, Additional history exists TSH [...] this encounter Medical Devices Implanted Type Area Hospice Consultant Device Identifier Shelf Expiration Date Model / Serial / Lot Cath Roselia Single Lumen - [id number] Implanted:Qty : 1 on 03/12/2008 at OR [facility] Left: Chest [facility] *DO NOT USE* 07/25/2012 21-4053-24 / / [id number] Sut Steel 6 M654g - [id number] Implanted:Qty : 1 on 11/01/2010 at OR [facility] N/A: Chest DO NOT USE M654G / / Sut Steel 6 M654g - [id number] Implanted:Qty : 1 on 11/01/2010 at OR [facility] N/A: Chest DO NOT USE M654G / / Valve Tarsha Aortic [id number] - [id number] Implanted:Qty : 1 on 11/01/2010 at OR [facility] N/A: Heart [employer] DANIEL 05/20/2012 2800TFX-25 / / [id number] Description:[email or web address] Mesh Soft 70e24ia - [id number] Implanted:Qty : 1 on 10/10/2019 by Gigi Hendrickson MD at OR [facility] N/A: Abdomen CR BARD : DAVOL [id number] 05/21/2024 [id number] / / [id number] Lens 22.5 Sn60wf - [id number] - [id number] Implanted:Qty : 1 on 09/15/2020 by Cece Roland MD at OR [facility] Right: Eye IVA : SURGICAL [id number] 05/13/2025 SN60 WF.225 / [id number] / [id number] Lens 21.5 Sn60wf - [id number] 022 - [id number] Implanted:Qty : 1 on 12/19/2023 by Ramsey Burnett DO at OR [facility] Left: Eye IVA : SURGICAL 12/03/2024 SN60WF.2 15 / [id number] 022 / documented as of this encounter [...] statute hierarchy) Jovita Ovalle Adult Child Health Machine Grinder resentative (appointed verbally by patient or by statute hierarchy) Care Teams Associate Store Manager Relationship Specialty Start Date End Date Gregory Rausch MD [address] [place] [address] PCP - General Family Medicine 02/12/20 documented as of this encounter
--- OUTSIDE RECORDS SUMMARY | 2024-10-02 03:23 | External Medical Summary | Summary of Care ---
Author Name Unknown Organization [facility] Address [address] [place] [address] Phone [phone] Care Team Providers Care Commercial Escrow Assistant Name Role Phone Gregory Rausch MD Primary Care Provider [phone] [phone] Encounter Details Date Type Department Care Team (Late st Contact Info) Description 07/31/2024 Orders Only PATIENT PORTAL DO NOT DELETE THIS DEPT USED BY [place] [address] Allergies Active Allergy Reactions Criticality Noted [...] Indications: weekly on fridays, Reported on 07/09/2024 Gawibwjhez-Rlcyyht-G affeine 50-325-40 MG Oral Capsule (Fiorinal)Indication s:Acute [...] morning. 18 mL 3 06/20/2024 Active Klayesta 544550 UNIT/GM External Powder (Nystatin)Indication s:Candidal intertrigo APPLY [...] eye 09/28/2020 Coronary artery disease invo lving [place] coronary artery of [place] heart without angina pectoris 12/16/2019 Last Assessment [...] 12/21/2016 Diabetes mellitus 01/05/2014 12/21/2016 LEYVA RESEARCH OTHER*[id number] 01/05/2014 12/21/2016 Axillary pain 11/03/2013 12/21/2016 Obesity, [...] 12/21/2016 FOLLOWING SURGERY, UNSPECIFI ED ([facility] BSO 08/25/2011) 08/26/2011 12/21/2016 ADVANCE DIRECTIVE INFORMATION 04/17/2011 12/21/2016 Overview: Yes, Patient instructed to provide copy of advance directive for provider to review and to be scanned into Electronic Medical Record ADVANCE DIRECTIVE INFORMATION 03/01/2011 12/21/2016 Overview: Yes, Patient instructed to provide copy of advance directive for provider to review and to be scanned into Electronic Medical Record [facility] V710 Clinical Trial*[id number] 12/22/2010 04/14/2011 S/P aortic valve replacement 12/01/2010 08/26/2011 S/P AORTIC VALVE REPLACEMENT - #25 pericardial Mc valve 11/01/2010 06/28/2018 Overview: Aortic valve replacement with #25 pericardial Mc valve, model 2800TFX, serial number [id number] (Dr. Walker) [facility] V710 Clinical Trial*[id number] 10/18/2010 11/21/2010 Type 2 diabetes mellitus wit [...] PPD 10/26/2019,10/17/2019 Pneumococcal Conjugate Vacci ne, 20-valent (Diqkamt69) 06/22/2023 Pneumococcal Polysaccharide PPV23 (Pneumovax) 01/02/2008 Seasonal [...] 07/31/2024 11:15 AM EST Office Visit Ophthalmology, [facility] [address] [address] Ramsey Burnett DO [address] [place] [address] 08/07/2024 2:30 PM EST Home Visit [facility] [address] [address] Zurdo Christina RN [address] [place] [address] 08/12/2024 9:20 AM EST Office Visit Family Practice [facility] [address] [place] [address] Gregory Rausch MD [address] [place] [address] 08/19/2024 9:00 AM EST Office Visit Pharmacy, [facility] [place] [address] [place] [address] Pharmacist1, [facility] [address] [facility] [place] [address] 09/01/2024 9:20 AM EST Office Visit Podiatry [facility] [address] [place] [address] Valerie Aguilar, DPIrina [address] [facility] [place] [address] 09/09/2024 10:00 AM EST Scheduled Telephone [facility], [place] [address] [facility] [place] [address] Lakesha King, RDN [address] [facility] [place] [address] 11/03/2024 11:00 AM EST Office Visit Sleep Disorders Ctr [facility] [address] [facility] [place] [phone] Christina Birch DO 132 [facility] [place] [address] 11/04/2024 9:30 AM EST Office Visit Gastroenterology, [facility] 132 [facility] [place] [address] Tia Taylor CRNP 132 [facility] [place] [address] 01/26/2025 11:40 AM EDT Office Visit Nephrology, [facility] 200 [facility] [place] [address] Fidelina Baumann MD [address] [place] [address] Scheduled Procedures Name Priority Associated Diagnoses Date/Ti [...] 10/25/2021, 02/16/2021, 01/18/2021 CKD PHOS USE SMARTSET 90714 06/18/202405/26, 06/16/2023, 06/15/2023, Additional history exists HbA1c 08/01/2024 01/30/2024, 08/25, 07/31/2023, Additional history exists Diabetic Eye Exam 09/13/2024 09/13/2023, , 09/13/2023, Additional history exists B-12 09/18/2024 09/18/2023, 08/24, 2020, Additional history exists GFR 11/01/2024 05/01/2024, 12/23, 10/15/2023, Additional history exists Albumin/Creatinine Ratio 01/07/2025 024, 03/09/2023, 12/22/2022, Additional history exists CKD HGB USE SMARTSET 89585 01/07/202501/07, 01/08/2024, 10/15/2023, Additional history exists TSH [...] this encounter Medical Devices Implanted Type Area Concrete Pointer Device Identifier Shelf Expiration Date Model / Serial / Lot Cath Roselia Single Lumen - [id number] Implanted:Qty : 1 on 03/12/2008 at [facility] Left: Chest [facility] *DO NOT USE* 07/25/2012 21-4053-24 / / [id number] Sut Steel 6 M654g - [id number] Implanted:Qty : 1 on 11/01/2010 at OR [facility] N/A: Chest DO NOT USE M654G / / Sut Steel 6 M654g - [id number] Implanted:Qty : 1 on 11/01/2010 at OR [facility] N/A: Chest DO NOT USE M654G / / Valve Tarsha Aortic 8599tmm70dl - [id number] Implanted:Qty : 1 on 11/01/2010 at OR [facility] N/A: Heart [employer] DANIEL 05/20/2012 2800TFX-25 / / [id number] Description:[email or web address] Mesh Soft 36y15lm - [id number] Implanted:Qty : 1 on 10/10/2019 by Gigi Hendrickson MD at [place] [facility] N/A: Abdomen CR BARD : DAVOL [id number] 05/21/2024 [id number] / / [id number] Lens 22.5 Sn60wf - [id number] - [id number] Implanted:Qty : 1 on 09/15/2020 by Renaldo Cook, Cece Acosta MD at OR [facility] Right: Eye IVA : SURGICAL [id number] 05/13/2025 SN60 WF.225 / [id number] / [id number] Lens 21.5 Sn60wf - [id number] - [id number] Implanted:Qty : 1 on 12/19/2023 by Ramsey Burnett DO at OR [facility] Left: Eye IVA : SURGICAL 12/03/2024 SN60WF.2 15 / [id number] / documented as of this encounter [...] statute hierarchy) Jovita Ovalle Adult Child Health Softlines Supervisor resentative (appointed verbally by patient or by statute hierarchy) [email or web address] Care Teams Commercial Escrow Assistant Relationship Specialty Start Date End Date Gregory Rausch MD [address] [place] [address] PCP - General Family Medicine 02/12/20 documented as of this encounter
--- OUTSIDE RECORDS SUMMARY | 2024-10-02 03:23 | External Medical Summary | Summary of Care ---
Author Name Unknown Organization [facility] Address [address] [place] [address] Phone [phone] Care Team Providers Care Communications Controller Name Role Phone Gregory Rausch MD Primary Care Provider [phone] Reason for Visit * Reason Onset Date Comments [facility]: Maintenance 07/09/2024 Encounter Details Date Type Department Care Team (Late st Contact Info) Description 07/09/2024 Telephone [facility] [address] [facility] [place] [address] Jaycee Sorto, RN [address] [place] [address] [facility]: Maintenance Allergies Active Allergy Reactions Criticality Noted Date Comments Adhesive Tape 07/02/2017 Can tolerate band-aids Glycerin Other (Please comment) 03/12/2008 Topical agents with glycein-burning & itching Lactose 12/09/2014 Dairy - gas Lisinopril Cough 01/21/2010 Monosodium Glutamate Edema Other 03/12/2008 Hands and feet Penicillins Rash 11/14/2007 documented as of this encounter (statuses as of 08/01/2024) Medications aspirin enteric coated 81 MG TBECIndications:A ortic valve disorder Take 1 Tab by mouth daily. 90 Tab 11 019 Active AZO Cranberry 250-30 MG Oral Tablet Take 1 Tablet by mouth in the morning and 1 Tablet before bedtime. Active BD Glucose 5 GM Oral Tablet Chewable (Glucose)Indicati ons:DM type 2, not at goal ([facility] [...] as directed DX E11.9 100 Each 5 06/21/2 024 Active Curity Alcohol Swabs Pad Use as directed as needed 200 Each 5 Active Aquaphor External Ointment Apply topically to [...] 50 units per day in Omnipod. Active Omnipod 5 G6 Intro (Gen 5) Kit Use as directed. Use to delivery insulin via insulin pump 1 Kit 5 Active Additional Information Patient not taking.Reported on [...] in the morning. 30 Capsule 1 Active Atorvastatin Calcium 40 MG Oral Tablet (Lipitor)Indicati ons:Heart failure, systolic, due to idiopathic cardiomyopathy ([facility]),S/P aortic valve replacement,HTN, goal below 140/80,Dyslipidem ia, [...] Indications: weekly on fridays, Reported on 07/09/2024 Butalbital-Aspiri n-Caffeine 50-325-40 MG Oral Capsule (Fiorinal)Indicat [...] morning. 18 mL 3 024 Active Klayesta 224620 UNIT/GM External Powder (Nystatin)Indicat ions:Candidal intertrigo APPLY TOPICALLY TO AFFECTED AREA 3 TIMES A DAY 60 g 1 024 Active Metoprolol Tartrate 50 MG Oral Tablet (Lopressor)Indica tions:HTN, goal below 130/80 TAKE 1 TABLET BY MOUTH IN THE MORNING AND BEFORE BEDTIME 180 Tablet 3 024 Active Magnesium Oxide -Mg Supplement 400 (240 Mg) MG Oral Tablet (Mag-Ox)Indicatio ns:HTN, goal below 130/80,Chronic heart failure with preserved ejection fraction (HCC),Palpitation s,Hypomagnesemia One tablet by mouth daily in the morning 90 Tablet 3 024 Active Dificid 200 MG Oral Tablet (Fidaxomicin)Cloleen cations:C. difficile colitis Take 1 Tablet by mouth in the morning and 1 Tablet before bedtime. 28 Tablet 024 2023 Discontinued Vancomycin HCl 125 MG Oral Capsule (Vancocin) TAKE 1 TABLET ORALLY 4 TIMES DAILY FOR 2 WKS, THEN 2 X/DAY X WK, THEN DAILY X 1 WK, THEN EVERY OTHER DAY FOR 8 WKS 100 Capsule 024 2023 Discontinued documented as of this encounter (statuses as of 08/01/2024) Active Problems Problem Noted Date Diagnosed Date [...] of [place] heart without angina pectoris 12/16/2019 Assessment & [...] as of this encounter (statuses as of 08/01/2024) Resolved Problems Problem Noted Date Diagnosed Date [...] 12/21/2016 Diabetes mellitus 01/05/2014 12/21/2016 LEYVA RESEARCH OTHER*[id number] 01/05/2014 12/21/2016 Axillary pain 11/03/2013 12/21/2016 Obesity, [...] 09/201008/26/2011 12/21/2016 FOLLOWING SURGERY, [facility]PECIFI [facility] 08/25/2011) 08/26/2011 12/21/2016 ADVANCE DIRECTIVE INFORMATION 04/17/2011 [...] [facility] V710 Clinical Trial*[id number] 12/22/2010 04/14/2011 S/P aortic valve replacement 12/01/2010 08/26/2011 S/P AORTIC VALVE REPLACEMENT - #25 pericardial Mc valve 11/01/2010 06/28/2018 Overview (11/02/2010): Aortic valve replacement with #25 pericardial Mc valve, model 2800TFX, serial number [id number] (Dr. Walker) [facility] V710 Clinical Trial*[id number] 10/18/2010 11/21/2010 Type 2 diabetes mellitus wit [...] as of this encounter (statuses as of 08/01/2024) Immunizations Name Administration Dates Next Due COVID-19 mRNA, LNP-s, No Pre serve, 2-Dose Series (Moderna) 10/25/2021,02/16/2021,01/18/2021 HEP A - Hepatitis A (Adult > 18 yrs) 06/07/2018, 12/05/2017 Hepatitis B, 20+ yrs 06/07/2018,01/08/20 18,12/05/2017,06/15,10/27/2013,09/12/2013 PPD 10/26/2019,10/17/2019 Pneumococcal Conjugate Vacci ne, 20-valent ([id number]) 06/22/2023 Pneumococcal Polysaccharide PPV23 (Pneumovax) 01/02/2008 Seasonal [...] Industry Job Start Date Job End Date [employer] - 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 She is still with [facility] in [facility] but it is no longer Jaycee Sorto. Her CM is now Zurdo Christina. Thank you! documented in this encounter Plan of Treatment Upcoming Encounters Date Type Department Care Team (Late st Contact Info) Description 08/11/2024 4:00 PM EST Home Visit [facility] [address] [address] Zurdo Christina RN [address] [address] 08/12/2024 9:20 AM EST Office Visit Family Practice [facility] [address] [address] Gregory Rausch MD [address] [address] 08/19/2024 9:00 AM EST Office Visit Pharmacy, [facility] [address] [facility] [place] [address] Pharmacist1, [facility] [address] [place] [address] 09/01/2024 9:20 AM EST Office Visit Podiatry [facility] [address] [facility] [place] [address] Valerie Aguilar, DPIrina [address] [facility] [place] [address] 09/09/2024 10:00 AM EST Scheduled Telephone [facility], [facility] [address] [facility] [place] [address] Lakesha King, RDN [address] [facility] [facility] [place] [address] 11/03/2024 11:00 AM EST Office Visit [facility] [address] [facility] [place] [id number] Christina Birch DO [address] [place] [address] 11/04/2024 9:30 AM EST Office Visit Gastroenterology, [facility] [address] [facility] [place] [address] Tia Taylor CRNP [address] [place] [address] 01/26/2025 11:40 AM EDT Office Visit Nephrology, [facility] [address] [place] [address] Fidelina Baumann MD [address] [place] [address] Scheduled Procedures Name Priority Associated Diagnoses Date/Ti [...] 10/25/2021, 02/16/2021, 01/18/2021 CKD PHOS USE SMARTSET 08011 06/18/202405/26, 06/16/2023, 06/15/2023, Additional history exists HbA1c 08/01/2024 01/30/2024, 08/25, 07/31/2023, Additional history exists Diabetic Eye Exam 09/13/2024 09/13/2023, , 09/13/2023, Additional history exists B-12 09/18/2024 09/18/2023, 08/24, 2020, Additional history exists GFR 11/01/2024 05/01/2024, 12/23, 10/15/2023, Additional history exists Albumin/Creatinine Ratio 01/07/2025 024, 03/09/2023, 12/22/2022, Additional history exists CKD HGB USE SMARTSET 06788 01/07/202501/07, 01/08/2024, 10/15/2023, Additional history exists TSH [...] this encounter Medical Devices Implanted Type Area [employer] 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 Device Identifier Shelf Expiration Date Model / Serial / Lot Cath Roselia Single Lumen - [id number] Implanted:Qty : 1 on 03/12/2008 at OR [facility] Left: Chest [facility] *DO NOT USE* 07/25/2012 21-4053-24 / / [id number] Sut Steel 6 M654g - [id number] Implanted:Qty : 1 on 11/01/2010 at OR [facility] N/A: Chest DO NOT USE M654G / / Sut Steel 6 M654g - [id number] Implanted:Qty : 1 on 11/01/2010 at OR [facility] N/A: Chest DO NOT USE M654G / / Valve Tarsha Aortic [id number] - [id number] Implanted:Qty : 1 on 11/01/2010 at OR [facility] N/A: Heart [employer] 05/20/2012 2800TFX-25 / / [id number] Description:[email or web address] Mesh Soft 15h28pu - [id number] Implanted:Qty : 1 on 10/10/2019 by Gigi Hendrickson MD [place] [facility] [place]/A: Abdomen CR BARD : DAVOL [id number] 05/21/2024 [id number] / / [id number] Lens 22.5 Sn60wf - [id number] - [id number] Implanted:Qty : 1 on 09/15/2020 by Cece Roland MD at OR [facility] Right: Eye IVA : SURGICAL [id number] 05/13/2025 SN60 WF.225 / [id number] / [id number] Lens 21.5 Sn60wf - [id number] - [id number] Implanted:Qty : 1 on 12/19/2023 by Ramsey Burnett DO at OR [facility] Left: Eye IVA : SURGICAL 12/03/2024 SN60WF.2 15 / [id number] / documented as of this encounter [...] statute hierarchy) Jovita Ovalle Adult Child Health Ingredient Specialist resentative (appointed verbally by patient or by statute hierarchy) [email or web address] Care Teams Communications Controller Relationship Specialty Start Date End Date Gregory Rausch MD [address] [address] PCP - General Family Medicine 02/12/20 documented as of this encounter
--- OUTSIDE RECORDS SUMMARY | 2024-10-02 03:24 | External Medical Summary | Summary of Care ---
Author Name Unknown Organization [facility] Address [address] [place] [address] Phone [phone] Care Team Providers Care Size Mixer Name Role Phone Gregory Rausch MD Primary Care Provider [phone] Reason for Visit * Reason Onset Date Comments Medical Nutrition Therapy 07/21/2024 Encounter Details Date Type Department Care Team (Latest Contact Info) Description 07/21/2024 2:00 PM EDT Scheduled Telephone [facility] [address], [place] [id number] Lakesha King, RDN [address] [place] [address] Type 2 diabetes mellitus with hemoglobin A1c goal of less than 8.0% (FORMER[facility])* Allergies Active Allergy Reactions Criticality Noted Date Comments Adhesive Tape 07/02/2017 Can tolerate band-aids Glycerin Other (Please comment) 03/12/2008 Topical agents with glycein-burning & itching Lactose 12/09/2014 Dairy - gas Lisinopril Cough 01/21/2010 Monosodium Glutamate Edema Other 03/12/2008 Hands and feet Penicillins Rash 11/14/2007 documented as of this encounter (statuses as of 07/21/2024) Medications Medication Sig Dispensed Refills Start Date [...] hypoglycemia E11.9 100 Tab 3 07/06/2021 Active Return PathTouch Verio w/Device Kit Use up to 4 times a day E11.9 1 Kit 02/10/2022 Active Return PathTouch Delica Lancets 33G TEST 4 TIMES DAILY [...] Capsules by mouth in the morning. Active Return PathTouch Verio In Vitro Strip (Glucose Blood) Use [...] Tablet before bedtime. 28 Tablet 05/02/2024 Active Additional Information Patient not taking.Reported on 06/30/2024 Saccharomyces boulardii 250 MG Oral Capsule (Florastor) [...] Indications: weekly on fridays, Reported on 07/09/2024 Mjicnvqgii-Lakhics-X affeine 50-325-40 MG Oral Capsule (Fiorinal)Indication s:Acute [...] morning. 18 mL 3 06/20/2024 Active Klayesta 898545 UNIT/GM External Powder (Nystatin)Indication s:Candidal intertrigo APPLY TOPICALLY TO AFFECTED AREA 3 TIMES A DAY 60 g 1 06/23/2024 Active Metoprolol Tartrate 50 MG Oral Tablet (Lopressor)Indicatio ns:HTN, goal below 130/80 TAKE 1 TABLET BY MOUTH IN THE MORNING AND BEFORE BEDTIME 180 Tablet 3 06/22/2024 Active Magnesium Oxide -Mg Supplement 400 (240 Mg) MG Oral Tablet (Mag-Ox)Indications: HTN, goal below 130/80,Chronic heart failure with preserved ejection fraction (HCC),Palpitations,H ypomagnesemia One tablet by mouth daily in the morning 90 Tablet 3 06/25/2024 Active Vancomycin HCl 125 MG Oral Capsule (Vancocin) TAKE 1 TABLET ORALLY 4 TIMES DAILY FOR 2 WKS, THEN 2 X/DAY X WK, THEN DAILY X 1 WK, THEN EVERY OTHER DAY FOR 8 WKS 100 Capsule 07/08/2024 Active Additional Information Patient not taking.Reported on 07/10/2024 documented as of this encounter (statuses as of 07/21/2024) Active Problems Problem Noted Date Diagnosed Date Dehydration 06/05/2024 Confusion 06/05/2024 Vomiting and diarrhea 06/05/2024 Atrial fibrillation 06/05/2024 Polyneuropathy associated with underlying diseas e 06/05/2024 Recurrent Clostridium difficile diarrhea 024 Last Assessment & Plan: Finish dificid as ordered Probiotics ordered, but patient has not started, recommended starting today Good hand hygiene, sanitize bathroom Hypertensive kidney disease with stage 3a chronic kidney disease 11/05/2023 Last Assessment & Plan: BP stable today Continue toprol Thrombocytopenia 09/12/2023 Obesity, Class I, BMI 30.0-34.9 (see actual BMI) 07/31/2023 C. difficile colitis 06/14/2023 Type 2 diabetes mellitus wit h [...] eye 09/28/2020 Coronary artery disease invo lving enterprise coronary artery of enterprise heart without angina pectoris 12/16/2019 Last Assessment [...] as of this encounter (statuses as of 07/21/2024) Resolved Problems Problem Noted Date Diagnosed Date Resolved Date Widened pulse pressure 06/19/202307/31 COVID-19 virus infection 06/19/202303/2023 Hyperglycemia due to diabetes mellitus 06/15/2023 07/31/2023 Splenic infarct 06/14/2023 02/04/2024 Pleural effusion 06/14/2023 07/31/2023 Hypokalemia 06/14/2023 07/31/2023 [...] 12/21/2016 Diabetes mellitus 01/05/2014 12/21/2016 LEYVA RESEARCH OTHER*[id number] 01/05/2014 12/21/2016 Axillary pain 11/03/2013 12/21/2016 Obesity, [...] FOLLOWING SURGERY, UNSPECIFI ED ([facility] BSO 08/25/2011) 08/26/2011 12/21/2016 ADVANCE DIRECTIVE [...] [facility] V710 Clinical Trial*[id number] 12/22/2010 04/14/2011 S/P aortic valve replacement 12/01/2010 08/26/2011 S/P AORTIC VALVE REPLACEMENT - #25 pericardial Mc valve 11/01/2010 06/28/2018 Overview: Aortic valve replacement with #25 pericardial Mc valve, model [id number], serial number [id number] (Dr. Walker) [facility] V710 Clinical Trial*[id number] 10/18/2010 11/21/2010 Type 2 diabetes mellitus wit [...] as of this encounter (statuses as of 07/21/2024) Immunizations Name Administration Dates Next Due COVID-19 mRNA, LNP-s, No Pre serve, 2-Dose Series (Moderna) 10/25/2021,02/16/2021,01/18/2021 HEP A - Hepatitis A (Adult > 18 yrs) 06/07/2018, 12/05/2017 Hepatitis B, 20+ yrs 06/07/2018,01/08/20 18,12/05/2017,06/15,10/27/2013,09/12/2013 PPD 10/26/2019,10/17/2019 Pneumococcal Conjugate Vacci ne, 20-valent (Oeumirf24) 06/22/2023 Pneumococcal Polysaccharide PPV23 (Pneumovax) 01/02/2008 Seasonal [...] Miscellaneous Notes * Telephone Encounter - Lakesha King, ROBERT - 07/21/2024 1:10 PM EDT NUTRITION CONSULT - OUTPATIENT Arvind Name: Jovita Rose [facility] Date: 07/21/2024 Time: 1:10 PM Patient was identified by name and date. After connecting to the patient via telephone, the patient was identified by name and date of . Patient was then informed that this was a telephone call only visit. The patient agreed to participate. Visit Disposition: Routine follow-up Total call duration was 38 minutes. Reason for Referral: Type 2 Diabetes NUTRITION ASSESSMENT: Client History 63 year old female enrolled in [employer] [facility] Home referred to Registered Dietitian for "Pt has long hx of dietary indiscretion, but she is willing to work on diet with help of her regular caregiver, Stephanie who is willing to help with meal planning, shopping". Spoke with patient this date. Per patient and EHR review, Stepah[employer] no longer with patient. Patient reporting son assisting getting her to the grocery store. Patient receives home delivered meals and will cook about 2 large meals per week with leftovers. Pt reporting sugars have been really high in 500's, now average in 300's. "Concern about getting down". Patient followed by MTM. Recent education on Dexcom. Patient reports plan for insulin pump education. 24 hour food recall reviewed. Areas of opportunity identified and discussed. Education and reinforcement provided. Pt centered goals established. See full nutrition assessment below. Patient Active Problem List Diagnosis Dyslipidemia DANYELLE [...] Medical marijuana use Coronary artery disease involving enterprise coronary artery of enterprise heart without angina pectoris Cystoid macular edema of right eye Type 2 diabetes mellitus with stage 3a chronic kidney disease, with long-term current use of insulin (HCC) Type 2 diabetes mellitus with hemoglobin A1c goal of less than 8.0% (HCC) Type 2 diabetes mellitus with diabetic peripheral angiopathy without gangrene (HCC) C. difficile colitis Obesity, Class I, BMI 30.0-34.9 (see actual BMI) Thrombocytopenia (HCC) Hypertensive kidney disease with stage 3a chronic kidney disease (HCC) Recurrent Clostridium difficile diarrhea Dehydration Confusion Vomiting and diarrhea Atrial fibrillation (HCC) Polyneuropathy associated with underlying disease (HCC) Patient reported that she was going to go for bariatric surgery. Did not go because she loves carbonation in soda. Seen by MTM on 07/15/2024. Education provided on Dexcom G6 CGM this date. Support System: Patient reports she does her own grocery shopping and cooking, Grocery shopping once a week (son drives her), Mom's meals "Diabetic Friendly"; 14 meals per 2 weeks. Patient does like Mom's meals. Barriers To Learning: None Special Education Needs: None Food/Nutrition-Related History Describes typical diet history/24 hr recall Good appetite "Healthy appetite" Patient reports sometimes she will eat 2 mom's meals Reports portions are more controlled. Seems large meals baseline for family. Breakfast: Often skips; will lay down during the morning. Snacks: Denies Lunch: usually 12 noon - will have mom's meals (meat loaf, corn, sliced potatoes), will have cheeseburger soup. Snacks: Denies Dinner: Usually 8 PM. Patient made ham, also has ziti, chicken and rice, for example. Snacks: Sometimes may skip dinner if too late, if she has mom's meals will eat. then is up at 3 AM eating, has been eating dry cheerios. Patient reporting one night started to make egg plant parm at 12 midnight and finished at 8 AM. Usually night owl. Drinks: water, Gatorade "keep dehydrating"; 5, 32 oz per day "regular", unsweetened adalgisa ice tea with crystal light lemonade Diet Recall/Food Logs Indicate: AREAS FOR IMPROVEMENT: Large portions High calorie, high fat and/or high sugar selections Excess intake of sweetened beverages Poor meal distribution Inconsistent carbohydrate intake Inadequate fruit and vegetable intake Food and Nutrient Intake and other pertinent information: Patient will cook 2 larger meals with left overs Food allergies and/or food intolerances: Lactose per EHR Pertinent Medications (Current): Current Outpatient Medications (Antidiabetic) Medication Sig Dispense Refill Tresiba FlexTouch 200 UNIT/ML Subcutaneous Solution Pen-injector (Insulin Degludec) Inject 36 Unitsunder the skin in the morning. 18 mL 3 Ozempic (2 MG/DOSE) 8 MG/3ML Subcutaneous Solution Pen-injector (Semaglutide (2 MG/DOSE)) Inject 2 mg under the skin once a week. (Patient taking differently: Inject 2 mg under the skin once a week. Tuesdays) 9 mL 1 Insulin Aspart 100 UNIT/ML Injection Solution (NovoLOG) Use up to 50 units per day in Omnipod. BD Glucose 5 GM Oral Tablet Chewable (Glucose) 3 every 15 minutes until glucose is > 100 mg/dL for hypoglycemia E11.9 100 Tab 3 Current Outpatient Medications (Other) Medication Sig Dispense Refill Vancomycin HCl 125 MG Oral Capsule (Vancocin) TAKE 1 TABLET ORALLY 4 TIMES DAILY FOR 2 WKS, THEN 2 X/DAY X WK, THEN DAILY X 1 WK, THEN EVERY OTHER DAY FOR 8 WKS (Patient not taking: Reported on 07/10/2024) 100 Capsule 0 Magnesium Oxide -Mg Supplement 400 (240 Mg) MG Oral Tablet (Mag-Ox) One tablet by mouth daily in the morning 90 Tablet 3 Klayesta 811976 UNIT/GM External Powder (Nystatin) APPLY TOPICALLY TO AFFECTED AREA 3 TIMES A DAY 60 g 1 Metoprolol Tartrate 50 MG Oral Tablet (Lopressor) TAKE 1 TABLET BY MOUTH IN THE MORNING AND BEFORE BEDTIME 180 Tablet 3 Fluticasone Propionate 50 MCG/ACT Nasal Suspension (Flonase) Administer 2 Sprays into each nostril in the morning. 16 g 3 Atorvastatin Calcium 40 MG Oral Tablet (Lipitor) Take 1 tablet by mouth daily to prevent heart attack/stroke, protect kidney, and cholesterol 90 Tablet 0 Wkwkzovcae-Xvhazzc-Sfjgxsag 50-325-40 MG Oral Capsule (Fiorinal) Take 1 Capsule by mouth every 4 hours as needed for Headache. 30 Capsule 0 Clopidogrel Bisulfate 75 MG Oral Tablet [...] 2 times a day. 360 Tablet 0 DULoxetine HCl 20 MG Oral Capsule Delayed Release Particles (Cymbalta) Take 1 Capsule by mouth in the morning. 30 Capsule 1 Saccharomyces boulardii 250 MG Oral Capsule (Florastor) Take 1 Capsule by mouth in the morning and 1 Capsule before bedtime. 60 Capsule 0 Dificid 200 MG Oral Tablet (Fidaxomicin) Take 1 Tablet by mouth in the morning and 1 Tablet before bedtime. (Patient not taking: Reported on 06/30/2024) 28 Tablet 0 Loperamide HCl 2 MG Oral Capsule (Imodium A-D) Take 1 Capsule by mouth 4 times a day as needed for Diarrhea. (Patient not taking: Reported on 07/09/2024) Omnipod 5 G6 Intro (Gen 5) Kit Use as directed. Use to delivery insulin via insulin pump (Patient not taking: Reported on 07/10/2024) 1 Kit 5 BD Insulin Syringe 25G X 1" 1 ML (Insulin Syringe-Needle U-100) Use daily with omnipod as directed DX E11.9 100 Each 5 Curity Alcohol Swabs Pad Use as directed as needed 200 Each 5 OneTouch Verio In Vitro Strip (Glucose Blood) [...] Skin. Apply to face 420 g 0 BD Pen Needle Short U/F 31G X 8 MM Use with insulin 4 times daily 400 Each 3 Probiotic (Lactobacillus) Oral Capsule Take 2 Capsules by mouth in the morning. (Patient not taking: Reported on 07/16/2024) One-A-Day Womens 50 Plus Oral Tablet Take 1 Tablet by mouth in the morning. CPAP every night at bedtime. traZODone HCl 100 MG Oral Tablet (Desyrel) Take 1 Tablet by mouth at bedtime. Gaviscon 80-14.2 MG Oral Tablet Chewable (Alum Hydroxide-Mag Trisilicate) Take by mouth as needed. Melatonin 10 MG Oral Capsule Take 1 Capsule by mouth at bedtime. (Patient not taking: Reported on 07/10/2024) OneTouch Delica Lancets 33G TEST 4 TIMES DAILY DIRECTED, E11.9 400 Each 3 OneTouch Verio w/Device Kit Use up to 4 times a day E11.9 1 Kit 0 AZO Cranberry 250-30 MG Oral Tablet Take 1 Tablet by mouth in the morning and 1 Tablet before bedtime. aspirin enteric coated 81 MG TBEC Take 1 Tab by mouth daily. 90 Tab 11 Per 07/15/2024 MTM "Diabetic Medications: Tresiba 36 units once daily Ozempic 2mg every Sunday Metformin 1000mg twice daily (On Hold) Novolog CF / over 200 (Flextouch pen) - give before every meal)" Supplements: Unable to review this date. Prior Nutrition Counseling: Patient does not remember if she has had DM diet education before. Known to [facility] RD[facility] from 2021. Physical Activity: Sedentary Anthropometric Measurements Patient reports of recently has lost 60 lbs; in [place] x 3 months "needed surgery" "saw [facility] for special care" Patient reporting was about 6 months ago. "For a while could only manage a bite or two" [facility] 04/07/2011 Wt Readings from Last 30 Encounters: 07/09/24 70.8 kg (156 lb) 06/30/24 70.8 kg (156 lb) 06/23/24 66.7 kg (147 lb) 06/05/24 67.8 kg (149 lb 7 oz) 05/01/24 68.9 kg (152 lb) 04/14/24 72.4 kg (159 lb 11.2 oz) 03/24/24 68 kg (150 lb) 03/17/24 70.3 kg (155 lb) 02/13/24 68.1 kg (150 lb 3.2 oz) 02/04/24 70.7 kg (155 lb 12.8 oz) 01/18/24 67.7 kg (149 lb 3.2 oz) 01/08/24 70.6 kg (155 lb 11.2 oz) 01/08/24 71.2 kg (156 lb 14.4 oz) 01/02/24 70 kg (154 lb 6.4 oz) 12/19/23 68.9 kg (152 lb) 12/03/23 69 kg (152 lb 3.2 oz) 11/21/23 70.8 kg (156 lb) 10/15/23 72.6 kg (160 lb) 09/06/23 70.3 kg (155 lb) 07/31/23 74.4 kg (164 lb) 07/28/23 75.3 kg (166 lb) 06/22/23 79.7 kg (175 lb 12.8 oz) 05/11/23 89.8 kg (198 lb) 04/18/23 91.6 kg (202 lb) 03/29/23 88.6 kg (195 lb 6.4 oz) 03/16/23 88.1 kg (194 lb 3.2 oz) 03/15/23 88.5 kg (195 lb 1.6 oz) 03/05/23 89.5 kg (197 lb 6.4 oz) 03/01/23 88 kg (194 lb 1.6 oz) 02/22/23 91.6 kg (202 lb) Usual Body Weight: 164 - 165 lbs. Highest Weight: 269 lbs. Lowest Weight: 147 lbs Weight Change: Per EHR weight stable x ~ 10 months Interpretation of weight change: Patient's reported weight history inconsistent with weight historyin EHR. Weight Goal: Weight maintenance to beneficial weight loss "use to think 100 lbs, thinks goal weightwould be 120 lbs" BMI: BMI Readings from Last 1 Encounters: 07/09/24 31.51 kg/m IBW: 55.9 kg %IBW: 127% AIBW: 59.6 kg Nutrition-Focused Physical Findings Full nutrition focused physical exam not able to be conducted: Telephonic nutrition assessment. Full nutrition focused physical exam not able to be conducted: Telephonic nutrition assessment. Good appetite reports Irregular sleep patterns Patient reports "was getting over diarrhea from C. Diff". "Was like water" Denies dry mouth "Urinates a lot" BM currently are more formed, will have 5 - 8 BMs daily; Patient reports this is baseline for her. Biochemical Data, Medical Tests, and Procedures Latest Reference Range & Units 05/01/24 11:08 SODIUM 135 - 146 mmol/L 133 (L) POTASSIUM 3.5 - 5.1 mmol/L 4.5 CHLORIDE 98 - 107 mmol/L 97 (L) CO2 22 - 32 mmol/L 25 BUN 6 - 20 mg/dL 16 CREATININE 0.5 - 1.0 mg/dL 1.0 EGFR >=60 mL/min 63 ANION GAP 7 - 15 mmol/L 11 GLUCOSE 70 - 120 mg/dL 289 (H) CALCIUM 8.4 - 10.2 mg/dL 9.5 Folic Acid >4.5 ng/mL >20.0 (L): Data is abnormally low (H): Data is abnormally high Hemoglobin AIC Results: Lab Results Component Value Date/Time HEMOGLOBIN A1C ([facility]) 8.6 (H) 11/04/2013 05:25 AM HEMOGLOBIN A1C - [facility] 7.5 (H) 09/18/2023 09:32 AM HEMOGLOBIN A1C - [facility] 6.3 (H) 07/31/2023 11:34 AM HEMOGLOBIN A1C - [facility] 7.9 (H) 04/09/2023 01:44 PM HEMOGLOBIN A1C - [facility] 8.3 (H) 12/09/2019 01:49 PM HEMOGLOBIN A1C - [facility] 8.1 (H) 10/14/2019 06:38 AM HEMOGLOBIN A1C - [facility] 8.0 (H) 03/14/2019 04:12 PM HEMOGLOBIN A1C POCT - [facility] 8.8 (H) 01/30/2024 08:27 AM A1C goal < 8. SMBG: Patient using Dexcom; Patient states "It is working". "They want to put the pump in" Patient reports plan insulin pump training for 08/19/2024. NUTRITION DIAGNOSIS Inconsistent carbohydrate intake related to Poor meal distribution, irregular sleep patters, large portions as evidenced by Reported diet and/or activity recall, A1c, patient interview. NUTRITION INTERVENTION: FOOD AND/OR NUTRIENT DELIVERY Meals NUTRITION EDUCATION Initial/brief nutrition education NUTRITION COUNSELING Strategies Other Education Material: Plate method Nutrition Prescription: Diet: Consistent Carbohydrate Good Nutrition Rocco Tee: Daily Calorie Needs: 1,599 Kcals (RMR x 1.38) Daily Protein Needs: 48 - 60 Grams protein ( 0.8 - 1 g/kg/AIBW) Goals: Patient will choose Mom's Meal for evening meal to avoid skipping dinner and consume left overs forlunch Patient will inquire on increasing Mom's meals back to 14 meals per week. Currently receiving 14 meals every 2 weeks. Patient will dilute Gatorade with 50% water. Mailing Plate Method to confirmed listed address to review next phone call. Patient will cook about 2 meals per week with left overs. Dietitian Action: Reviewed current nutritional status, nutrition hx, appetite, weight and weight hx. Focused on DM control. Education provided on avoidance of concentrated sweets and importance of consistent carbohydrates diet. Discussed goals above. Patient agreed to, reporting as attainable. Recommendations to Ordering Provider: Continue current plan of nutrition care. NUTRITION MONITORING AND EVALUATION: The following will be monitored and evaluated at the next visit: Monitor weight. Monitor labs. Review food logs. Monitor goals and progress. Plan:Patient scheduled to return in 1- 2 months ; dietitian phone # given for future reference. 45 minutes Medical Nutrition Therapy 15 min (8-22 min) 30 min (23-37 min) 45 min (38-52 min) 60 min (53-67 min) 75 min (68-82 min) 90 min (83-97 min) 105 min (98-113 min) Time In: 1320 (07/21/24 1320) Time Out: 1358 (07/21/24 1358) Lakesha King RDN [facility], [facility] documented in this encounter Plan of Treatment Upcoming Encounters Date Type Department Care Team (Late st Contact Info) Description 07/31/2024 11:15 AM EST Office Visit Ophthalmology, [facility] [address] [address] Ramsey Burnett DO [address] [facility] [place] [address] 08/07/2024 2:30 PM EST Home Visit [facility] [address] [address] Zurdo Christina, PRABHA [address] [address] 08/12/2024 9:20 AM EST Office Visit Family Practice [facility] [address] [address] Gregory Rausch MD [address] [address] 08/19/2024 9:00 AM EST Office Visit Pharmacy, [facility] [address] [place] [address] Pharmacist1, [facility] [address] [place] [address] 09/09/2024 10:00 AM EST Scheduled Telephone [facility] [place] [address] [facility] [place] [address] Fernando Lakesha Jovita, RDN [address] [place] [address] 11/03/2024 11:00 AM EST Office Visit Sleep Disorders Ctr [facility] [address] [place] [id number] Christina Birch DO [address] [place] [address] 11/04/2024 9:30 AM EST Office Visit Gastroenterology, [facility] [address] [place] [address] Tia Taylor CRNP [address] [place] [address] 01/26/2025 11:40 AM EDT Office Visit Nephrology, [facility] [address] [facility] [place] [address] Fidelina Baumann MD [address] [facility] [place] [address] Scheduled Procedures Name Priority Associated Diagnoses Date/Ti [...] 10/25/2021, 02/16/2021, 01/18/2021 CKD PHOS USE SMARTSET 68053 06/18/202405/26, 06/16/2023, 06/15/2023, Additional history exists HbA1c 08/01/2024 01/30/2024, 08/25, 07/31/2023, Additional history exists Diabetic Eye Exam 09/13/2024 09/13/2023, , 09/13/2023, Additional history exists B-12 09/18/2024 09/18/2023, 08/24, 2020, Additional history exists GFR 11/01/2024 05/01/2024, 12/23, 10/15/2023, Additional history exists Albumin/Creatinine Ratio 01/07/2025 024, 03/09/2023, 12/22/2022, Additional history exists CKD HGB USE SMARTSET 81409 01/07/202501/07, 01/08/2024, 10/15/2023, Additional history exists TSH 01/07/2025 01/08/2024, 09/25, 06/06/2023, Additional history exists Colonoscopy 07/16/2027 07/16/2024, 06/25, [...] this encounter Medical Devices Implanted Type Area Color Grinder Device Identifier Shelf Expiration Date Model / Serial / Lot Cath Roselia Single Lumen - [id number] Implanted:Qty : 1 on 03/12/2008 at OR [facility] Left: Chest [facility] *DO NOT USE* 07/25/2012 21-4053-24 / / [id number] Sut Steel 6 M654g - [id number] Implanted:Qty : 1 on 11/01/2010 at OR [facility] N/A: Chest DO NOT USE M654G / / Sut Steel 6 M654g - [id number] Implanted:Qty : 1 on 11/01/2010 at OR [facility] N/A: Chest DO NOT USE M654G / / Valve Tarsha Aortic [id number] - [id number] Implanted:Qty : 1 on 11/01/2010 at OR [facility] N/A: Heart [employer] 05/20/2012 [id number] / / [id number] Description:[email or web address] Mesh Soft 60u99ig - [id number] Implanted:Qty : 1 on 10/10/2019 by Gigi Hendrickson MD at [place] [facility] [place] N/A: Abdomen CR BARD : DAVOL [id number] 05/21/2024 [id number] / / [id number] Lens 22.5 Sn60wf - [id number] - [id number] Implanted:Qty : 1 on 09/15/2020 by Cece Roland MD at OR [facility] Right: Eye IVA : SURGICAL [id number] 05/13/2025 SN60 WF.225 / [id number] / [id number] Lens 21.5 Sn60wf - [id number] - [id number] Implanted:Qty : 1 on 12/19/2023 by Ramsey Burnett DO at OR [facility] Left: Eye IVA : SURGICAL 12/03/2024 SN60WF.2 15 / [id number] / documented as of this encounter Visit Diagnoses Diagnosis Type 2 diabetes mellitus with hemoglobin A1c goal of less than 8.0% ([facility])- Primary documented in this encounter Advance Directives [...] patient have Health Care Power of Attor zaucena? No * Full Code Date Activated Date Inactivated Comments 10/10/2019 8:40 AM 10/10/2019 5:53 PM This order r eflects the patients wishes and were consensually agreed upon. Healthcare Agents on File Name Relationship Healthcare Agent Relationship Communication Gigi Rose Adult Child Health Care Repr esentative (appointed verbally by patient or by statute hierarchy) Jovita Ovalle Adult Child Health Email Marketing Specialist resentative (appointed verbally by patient or by statute hierarchy) [email or web address] Care Teams Size Mixer Relationship Specialty Start Date End Date Gregory Rausch MD [address] [place] [address] PCP - General Family Medicine 02/12/20 documented as of this encounter
--- OUTSIDE RECORDS SUMMARY | 2024-10-02 03:24 | External Medical Summary | Summary of Care ---
Author Name Unknown Organization [facility] Address [address] [place] [address] Phone [phone] Care Team Providers Care Wet Crown Blocking Operator Name Role Phone Gregory Rausch MD Primary Care Provider [phone] Reason for Visit * Reason Comments Diabetes Follow-Up Dosage Adjustment In Person (Anticoag Cl inic) Encounter Details Date Type Department Care Team (Late st Contact Info) Description 07/15/2024 11:30 AM EDT Office Visit Pharmacy, [facility] [address] [place] [address] Pharmacist1, [facility] [address] [place] [address] Type 2 diabetes mellitus with hemoglobin A1c goal of less than 8.0% ([facility])*; Type 2 diabetes mellitus with stage 3a chronic kidney disease, with long-term current use of insulin ([facility]) Allergies Active Allergy Reactions Criticality Noted Date Comments Adhesive Tape 07/02/2017 Can tolerate band-aids Glycerin Other (Please comment) 03/12/2008 Topical agents with glycein-burning & itching Lactose 12/09/2014 Dairy - gas Lisinopril Cough 01/21/2010 Monosodium Glutamate Edema Other 03/12/2008 Hands and feet Penicillins Rash 11/14/2007 documented as of this encounter (statuses as of 07/15/2024) Medications Medication Sig Dispensed Refills Start Date [...] of less than 7.0% ([facility]) Use up to 50 units [...] Indications: weekly on fridays, Reported on 07/09/2024 Ehbldheuas-Civaxsf-E affeine 50-325-40 MG Oral Capsule (Fiorinal)Indication s:Acute [...] use of insulin ([facility]) Inject 36 Units under the skin in the morning. 18 mL 3 06/20/2024 Active Klayesta 708649 UNIT/GM External Powder (Nystatin)Indication s:Candidal intertrigo APPLY [...] as of this encounter (statuses as of 07/15/2024) Active Problems Problem Noted Date Diagnosed Date [...] 09/28/2020 Coronary artery disease invo lving [place] coronary artery of [place] heart without angina pectoris 12/16/2019 Last Assessment [...] as of this encounter (statuses as of 07/15/2024) Resolved Problems Problem Noted Date Diagnosed Date [...] 12/21/2016 Diabetes mellitus 01/05/2014 12/21/2016 LEYVA RESEARCH OTHER*[id number] 01/05/2014 12/21/2016 Axillary pain 11/03/2013 12/21/2016 Obesity, [...] Medical Record [facility] V710 Clinical Trial*[id number] 12/22/2010 04/14/2011 S/P aortic valve replacement 12/01/2010 08/26/2011 S/P AORTIC VALVE REPLACEMENT - #25 pericardial Mc valve 11/01/2010 06/28/2018 Overview: Aortic valve replacement with #25 pericardial Mc valve, model 2800TFX, serial number [id number] (Dr. Walker) [facility] V710 Clinical Trial*[id number] 10/18/2010 11/21/2010 Type 2 diabetes mellitus wit [...] as of this encounter (statuses as of 07/15/2024) Immunizations Name Administration Dates Next Due COVID-19 mRNA, LNP-s, No Pre serve, 2-Dose Series (Moderna) 10/25/2021,02/16/2021,01/18/2021 HEP A - Hepatitis A (Adult > 18 yrs) 06/07/2018, 12/05/2017 Hepatitis B, 20+ yrs 06/07/2018,01/08/20 18,12/05/2017,06/15,10/27/2013,09/12/2013 PPD 10/26/2019,10/17/2019 Pneumococcal Conjugate Vacci ne, 20-valent (Rjtpsac12) 06/22/2023 Pneumococcal Polysaccharide PPV23 (Pneumovax) 01/02/2008 Seasonal [...] Progress Notes * Neeraj Matthew, [facility] - 07/15/2024 10:56 AM EDT Medication Therapy Disease Management Clinic - Diabetes Management Progress Note Jovita Rose, identified by name and date of , is a 63 year old female being seen for diabetes management/education. Patient presents for return diabetic visit. DIABETES: Current diabetic medications: Tresiba 36 units once daily Ozempic 2mg every Sunday Metformin 1000mg twice daily (On Hold) Novolog CF 2/50 over 200 (Flextouch pen) - give before every meal) Medication Injection Site: Arm and Abdomen Lifestyle: Diet: unchanged History of Treatment Barriers: Lifestyle: None Therapy considerations: Cost Medication: None Glucose Review/SMBG: No log to appointment. She did bring Dexcom G6 supplies and color receiver to appointment and I started one today. Hypoglycemia: Does your blood sugar go below 70 mg/dL? No Hyperglycemia symptoms present: none Goal <8 Recent Labs Units 01/30/24 0827 [...] cough BP Readings from Last 3 Encounters: 07/10/24 144/82 06/30/24 130/80 06/23/24 128/80 Blood pressure at goal: yes HYPERLIPIDEMIA: Patient is taking moderate or high intensity statin: yes, Atorvastatin 40mg daily HEALTH MAINTENANCE REVIEW: Health Maintenance Due Topic Date Due HIV Screening Never done Diabetic Foot Exam 2021 DXA Scan 12/18/2023 COVID-19 Vaccine ( season) 2024 CKD PHOS USE SMARTSET 80015 06/18/2024 HbA1c 08/01/2024 ASSESSMENT & PLAN: ICD-10-CM 1. Type 2 diabetes mellitus with hemoglobin A1c goal of less than 8.0% ([facility]) E11.9 2. Type 2 diabetes mellitus with stage 3a chronic kidney disease, with long-term current use of insulin ([facility]) E11.22 N18.31 Z79.4 Dexcom G6: Patient Education and Review Patient provided G6 CGM components and training manual. Reviewed the following information with patient using provided bag filler literature: Introduced CGM and components How to set up display device (cell phone with Dexcom G6 fred or color receiver) Follow the onscreen instructions on color receiver or appt to enter: Low and high alerts Sensor code Transmitter SN Insert sensor and attach transmitter Choose sensor site Insert sensor with applicator Snap in transmitter Pair transmitter and start sensor Wait for transmitter to pair Tap start sensor No readings during the 2-hour warmup Keep display device within 20 feet during warmup Home screen overview Review home screen overview in using your G6 with patient Home screen shows Sensor glucose readings Trend arrow Trend graph High and low alerts Treatment decisions Review treatment decisions in using your G6 with patient Use your meter if: Your G6 readings don't match your symptoms Your G6 doesn't show both a number and an arrow Ending Sensor Session Review ending your sensor session in using your G6 with patient Remover sensor and transmitter together from body Remove transmitter from denson Keep transmitter Patient set up personal device and self-inserted sensor and transmitter in office independently of pharmacist involvement other than for material review and support. BG Readings - Blood sugars not available. Started G6 today Medications - Reviewed current regimen, patient is adherent to regimen. Will be starting Omnipod 5 in one month Diet, Exercise, Lifestyle - No significant lifestyle changes since last visit. Discussed with patient today. Patient is agreeable to wear Dexcom G6. Patient aware to contact clinic if any hypoglycemia before next visit. MEDICATION CHANGES: no change Diabetic Medications: Tresiba 36 units once daily Ozempic 2mg every Sunday Metformin 1000mg twice daily (On Hold) Novolog CF 2/50 over 200 (Flextouch pen) - give before every meal) HEALTH MAINTENANCE INTERVENTIONS: Labs: Up to Date Immunizations: Up to Date Foot Exam: needs completed Eye Exam: Up to Date Annual Wellness Visit: Up to Date I spent a total of 20-29 minutes (exact time 26 mins) on the date of service in preparation, delivery, and documentation of the care provided to Jovita Rose excluding any time spent in the performance of separately billed services or time spent by another provider/QHP. FOLLOW UP: Return to clinic in 4 weeks to start Omnipod 5 08/19/2024 Neeraj Romero RPh, [facility] Clinical Pharmacist - Sample Steamer Medication Therapy Management Clinic 07/15/2024, 10:56 AM documented in this encounter Plan of Treatment Upcoming Encounters Date Type Department Care Team (Late st Contact Info) Description 07/16/2024 2:30 PM EDT Hospital Encounter ENDO O[facility], Endoscopy Room [facility] [address] [place] [phone] Rajinder Wheeler MD [address] [place] [address] 07/16/2024 2:30 PM EDT - 07/16/2024 3:00 PM EDT Surgery ENDO [facility], Endoscopy Room [facility] [address] [place] [phone] Rajinder Wheeler MD [address] [place] [address] COLONOSCOPY FLEXIBLE PROXIMAL DIAGNOSTIC 07/21/2024 2:00 PM EDT Scheduled Telephone [facility], [facility] [address] [place] [address] Lkaesha King, MITCHELLN [address] [place] [address] 07/31/2024 11:15 AM EST Office Visit Ophthalmology, [facility] [address] [facility] [place] [address] Ramsey Burnett, DO [address] [place] [address] 08/07/2024 2:30 PM EST Home Visit [facility], [facility] [address] [facility] [place] [address] Zurdo Christina, PRABHA [address] [facility] [place] [address] 08/12/2024 9:20 AM EST Office Visit Family Practice [facility] [address] [facility] [place] [address] Gregory Rausch MD [address] [facility] [place] [address] 08/19/2024 9:00 AM EST Office Visit Pharmacy, [facility] [address] [facility] [place] [address] Pharmacist1, [facility] [address] [facility] [place] [address] 11/03/2024 11:00 AM EST Office Visit Sleep Disorders Ctr [facility] [address] [facility] [place] [phone] Christina Birch, DO [address] [facility] [place] [address] 11/04/2024 9:30 AM EST Office Visit Gastroenterology, [facility] [address] [facility] [place] [address] Tia Taylor CRNP [address] [facility] [place] [address] Scheduled Procedures Name Priority Associated Diagnoses Date/Ti me COLONOSCOPY FLEXIBLE PROXIMA L DIAGNOSTIC Pancolitis (HCC) 07/16/2024 2:30 PM EDT COLONOSCOPY FLEXIBLE PROXIMA L DIAGNOSTIC Recall [...] 10/25/2021, 02/16/2021, 01/18/2021 CKD PHOS USE SMARTSET 57903 06/18/202405/26, 06/16/2023, 06/15/2023, Additional history exists HbA1c 08/01/2024 01/30/2024, 08/25, 07/31/2023, Additional history exists Diabetic Eye Exam 09/13/2024 09/13/2023, , 09/13/2023, Additional history exists B-12 09/18/2024 09/18/2023, 08/24, 2020, Additional history exists GFR 11/01/2024 05/01/2024, 12/23, 10/15/2023, Additional history exists Albumin/Creatinine Ratio 01/07/2025 024, 03/09/2023, 12/22/2022, Additional history exists CKD HGB USE SMARTSET 54719 01/07/202501/07, 01/08/2024, 10/15/2023, Additional history exists TSH [...] this encounter Medical Devices Implanted Type Area Funeral Pre Need Consultant Device Identifier Shelf Expiration Date Model / Serial / Lot Cath Roselia Single Lumen - [id number] Implanted:Qty : 1 on 03/12/2008 at OR [facility] Left: Chest [facility] *DO NOT USE* 07/25/2012 21-4053-24 / / [id number] Sut Steel 6 M654g - [id number] Implanted:Qty : 1 on 11/01/2010 at OR [facility] N/A: Chest DO NOT USE M654G / / Sut Steel 6 M654g - [id number] Implanted:Qty : 1 on 11/01/2010 at OR [facility] N/A: Chest DO NOT USE M654G / / Valve Tarsha Aortic [id number] - [id number] Implanted:Qty : 1 on 11/01/2010 at OR [facility] N/A: Heart [employer] DANIEL 05/20/2012 [id number]-25 / / [id number] Description:[email or web address] Mesh Soft 09p17zi - [id number] Implanted:Qty : 1 on 10/10/2019 by Gigi Hendrickson MD at OR [facility] [place] N/A: Abdomen CR BARD : DAVOL [id number] 05/21/2024 [id number] / / [id number] Lens 22.5 Sn60wf - [id number] - [id number] Implanted:Qty : 1 on 09/15/2020 by Cece Roland MD at OR [facility] Right: Eye IVA : SURGICAL [id number] 05/13/2025 SN60 WF.225 / [id number] / [id number] Lens 21.5 Sn60wf - [id number] - [id number] Implanted:Qty : 1 on 12/19/2023 by Ramsey Burnett DO at OR [facility] Left: Eye IVA : SURGICAL 12/03/2024 SN60WF.2 15 / [id number] [id number] / documented as of this encounter Visit Diagnoses Diagnosis Type 2 diabetes mellitus with hemoglobin A1c goal of less than 8.0% (HCC)- Primary Type 2 diabetes mellitus with stage 3a chronic kidney disease, with long-term current use of insulin (HCC) Pancolitis (HCC) [place] ulcerative (chronic) colitis documented in this encounter Advance Directives * [...] statute hierarchy) Jovita Yamile Adult Child Health Information Technology Technician resentative (appointed verbally by patient or by statute hierarchy) [email or web address] Care Teams Wet Crown Blocking Operator Relationship Specialty Start Date End Date Gregory Rausch MD [address] [facility] [place] [address] PCP - General Family Medicine 02/12/20 documented as of this encounter
--- OUTSIDE RECORDS SUMMARY | 2024-10-02 03:24 | External Medical Summary | Summary of Care ---
Author Name Unknown Organization [facility] Address [address] [place] [address] Phone [phone] Care Team Providers Care Handkerchief Presser Name Role Phone Gregory Rausch MD Primary Care Provider [phone] Reason for Visit * Reason Comments eRx-Medication Refill Encounter Details Date Type Department Care Team (Late st Contact Info) Description 06/20/2024 Refill [facility], [facility] [address] [place] [address] Jose Neumann PA-C [address] [place] [address] Allergies Active Allergy Reactions Criticality Noted Date Comments Adhesive Tape 07/02/2017 Can tolerate band-aids Glycerin Other (Please comment) 03/12/2008 Topical agents with glycein-burning & itching Lactose 12/09/2014 Dairy - gas Lisinopril Cough 01/21/2010 Monosodium Glutamate Edema Other 03/12/2008 Hands and feet Penicillins Rash 11/14/2007 documented as of this encounter (statuses as of 07/28/2024) Medications Medication Sig Dispensed Refills Start Date [...] (Glucose)Indication s:DM type 2, not at goal ([facility]) 3 every 15 minutes until glucose is > 100 mg/dL for hypoglycemia E11.9 100 Tab 3 07/06/2021 Active Tales2GoTouch Verio w/Device Kit Use up to 4 times a day E11.9 1 Kit 02/10/2022 Active Tales2GoTouch Delica Lancets 33G TEST 4 TIMES DAILY [...] Capsules by mouth in the morning. Active Tales2GoTouch Verio In Vitro Strip (Glucose Blood) Use [...] Indications: weekly on fridays, Reported on 07/09/2024 Butalbital-Aspirin- Caffeine 50-325-40 MG Oral Capsule (Fiorinal)Indicatio [...] use of insulin ([facility]) Inject 36 Units under the skin in the morning. 18 mL 3 06/20/2024 Active Klayesta 526995 UNIT/GM External Powder (Nystatin)Indicatio ns:Candidal intertrigo APPLY TOPICALLY TO AFFECTED AREA 3 TIMES A DAY 60 g 1 06/23/2024 Active Metoprolol Tartrate 50 MG Oral Tablet (Lopressor)Indicati ons:HTN, goal below 130/80 TAKE 1 TABLET BY [...] in the morning 90 Tablet 3 03/07/2024 06/25/20 24 Discontinu ed(Refill) documented as of this encounter (statuses as of 07/28/2024) Active Problems Problem Noted Date Diagnosed Date [...] eye 09/28/2020 Coronary artery disease invo lving [place] coronary artery of [place] heart without angina pectoris 12/16/2019 Last Assessment [...] as of this encounter (statuses as of 07/28/2024) Resolved Problems Problem Noted Date Diagnosed Date [...] 12/21/2016 Diabetes mellitus 01/05/2014 12/21/2016 LEYVA RESEARCH OTHER*[id number] 01/05/2014 12/21/2016 Axillary pain 11/03/2013 12/21/2016 Obesity, [...] cath 09/201008/26/2011 12/21/2016 FOLLOWING SURGERY, UNSPECIFI ED ([facility] 08/25/2011) 08/26/2011 12/21/2016 ADVANCE DIRECTIVE INFORMATION 04/17/2011 12/21/2016 Overview: Yes, Patient instructed to provide copy of advance directive for provider to review and to be scanned into Electronic Medical Record ADVANCE DIRECTIVE INFORMATION 03/01/2011 12/21/2016 Overview: Yes, Patient instructed to provide copy of advance directive for provider to review and to be scanned into Electronic Medical Record [facility] V710 Clinical Trial*[id number] 12/22/2010 04/14/2011 S/P aortic valve replacement 12/01/2010 08/26/2011 S/P AORTIC VALVE REPLACEMENT - #25 pericardial Hernandez valve 11/01/2010 06/28/2018 Overview: Aortic valve replacement with #25 pericardial Hernandez valve, model 2800TFX, serial number [id number] (Dr. Walker) [facility] V710 Clinical Trial*[id number] 10/18/2010 11/21/2010 Type 2 diabetes mellitus wit [...] as of this encounter (statuses as of 07/28/2024) Immunizations Name Administration Dates Next Due COVID-19 mRNA, LNP-s, No Pre serve, 2-Dose Series (Moderna) 10/25/2021,02/16/2021,01/18/2021 HEP A - Hepatitis A (Adult > 18 yrs) 06/07/2018, 12/05/2017 Hepatitis B, 20+ yrs 06/07/2018,01/08/20 18,12/05/2017,06/15,10/27/2013,09/12/2013 PPD 10/26/2019,10/17/2019 Pneumococcal Conjugate Vacci ne, 20-valent ([id number]) 06/22/2023 Pneumococcal Polysaccharide PPV23 (Pneumovax) 01/02/2008 Seasonal [...] Telephone Encounter - Jose Neumann PA-C - 07/28/2024 4:00 PM ESTSigned Prescriptions: Disp Refills Klor-Con M20 20 MEQ Oral Tablet Extended R*90 Tab*3 Sig: TAKE 1 TABLET BY MOUTH EVERY DAY IN THE MORNING Authorizing Provider: JOSE NEUMANN * Telephone Encounter - Interface, E-Rx Ss Inbound - 06/25/2024 11:10 AM EDT Pending Prescriptions: Disp Refills Klor-Con M20 20 MEQ Oral Tablet Extended R*90 Tab*3 Sig: TAKE 1 TABLET BY MOUTH EVERY DAY IN THE MORNING * Telephone Encounter - Addie Loomis RPh - 06/23/2024 11:23 AM EDTPending Prescriptions: Disp Refills Klor-Con M20 20 MEQ Oral Tablet Extended R*90 Tab*3 Sig: TAKE 1 TABLET BY MOUTH EVERY DAY IN THE MORNING * Telephone Encounter - Addie Loomis RPh - 06/23/2024 11:06 AM EDT Medication prescribed by [facility] provider. Please approve if appropriate. Thanks, Addie Loomis, PharmD Cardiology Clinical Pharmacist [facility] 06/23/2024, 11:19 AM documented in this encounter Plan of Treatment Upcoming Encounters Date Type Department Care Team (Late st Contact Info) Description 07/29/2024 1:20 PM EST Office Visit Family Practice [facility] [address] [place] [address] Jovita Luna CRNP [address] [place] [address] 07/31/2024 11:15 AM EST Office Visit Ophthalmology, [facility] [address] [place] [address] Ramsey Burnett, DO [address] [place] [address] 08/07/2024 2:30 PM EST Home Visit [facility], [facility] [address] [place] [address] Zurdo Christina, PRABHA [address] [place] [address] 08/12/2024 9:20 AM EST Office Visit Family Practice [facility] [address] [place] [address] Gregory Rausch MD [address] [place] [address] 08/19/2024 9:00 AM EST Office Visit Pharmacy, [facility] [address] [facility] [place] [address] Pharmacist1, [facility] [address] [facility] [place] [address] 09/09/2024 10:00 AM EST Scheduled Telephone [facility], [facility] [address] [facility] [place] [address] Lakesha King, MITCHELLN [address] [facility] [place] [address] 11/03/2024 11:00 AM EST Office Visit Sleep Disorders Ctr [facility] [address] [place] [phone] Christina Birch, [address] [facility] [place] [address] 11/04/2024 9:30 AM EST Office Visit Gastroenterology, [facility] [address] [place] [address] Tia Taylor CRNP [address] [place] [address] 01/26/2025 11:40 AM EDT Office Visit Nephrology, [place] [address] [place] [address] Fidelina Baumann MD [address] [facility] [place] [address] Scheduled Procedures Name Priority Associated Diagnoses Date/Ti [...] 10/25/2021, 02/16/2021, 01/18/2021 CKD PHOS USE SMARTSET 92439 06/18/202405/26, 06/16/2023, 06/15/2023, Additional history exists HbA1c 08/01/2024 01/30/2024, 08/25, 07/31/2023, Additional history exists Diabetic Eye Exam 09/13/2024 09/13/2023, , 09/13/2023, Additional history exists B-12 09/18/2024 09/18/2023, 08/24, 2020, Additional history exists GFR 11/01/2024 05/01/2024, 12/23, 10/15/2023, Additional history exists Albumin/Creatinine Ratio 01/07/2025 024, 03/09/2023, 12/22/2022, Additional history exists CKD HGB USE SMARTSET 79072 01/07/202501/07, 01/08/2024, 10/15/2023, Additional history exists TSH [...] encounter Medical Devices Implanted Type Area Art Psychotherapist Device Identifier Shelf Expiration Date Model / Serial / Lot Cath Roselia Single Lumen - [id number] Implanted:Qty : 1 on 03/12/2008 at OR [facility] Left: Chest [facility] *DO NOT USE* 07/25/2012 21-4053-24 / / [id number] Sut Steel 6 M654g - [id number] Implanted:Qty : 1 on 11/01/2010 at OR [facility] N/A: Chest DO NOT USE M654G / / Sut Steel 6 M654g - [id number] Implanted:Qty : 1 on 11/01/2010 at OR [facility] N/A: Chest DO NOT USE M654G / / Valve Tarsha Aortic [id number] - [id number] Implanted:Qty : 1 on 11/01/2010 at OR [facility] N/A: Heart [employer] DANIEL 05/20/2012 2800TFX-25 / / [id number] Description:[email or web address] Mesh Soft [id number] - [id number] Implanted:Qty : 1 on 10/10/2019 by Gigi Hendrickson MD at [place] [facility] [place] N/A: Abdomen CR BARD : DAVOL [id number] 05/21/2024 [id number] / / [id number] Lens 22.5 Sn60wf - [id number] - [id number] Implanted:Qty : 1 on 09/15/2020 by Renaldo Cook, Cece Acosta MD at OR [facility] Right: Eye IVA : SURGICAL [id number] 05/13/2025 SN60 WF.225 / [id number] / [id number] Lens 21.5 Sn60wf - [id number] - [id number] Implanted:Qty : 1 on 12/19/2023 by Ramsey Burnett DO at OR [facility] Left: Eye IVA : SURGICAL 12/03/2024 SN60WF.2 15 / [id number] / documented as of this encounter [...] statute hierarchy) Jovita Yamile Adult Child Health Laundry Washer resentative (appointed verbally by patient or by statute hierarchy) [email or web address] Care Teams Handkerchief Presser Relationship Specialty Start Date End Date Gregory Rausch MD [address] [place] [address] PCP - General Family Medicine 02/12/20 documented as of this encounter
--- OUTSIDE RECORDS SUMMARY | 2024-10-02 03:24 | External Medical Summary ---
Author Name Unknown Address Unknown Organization : Laboratory Report Ordering Provider Test Date Status BETO CAUSEY 07/16/2024 15:41:44 Final Observation Date Value Abnormality Reference (Units ) Status Glucose Point of Care 07/16/2024 15:41:44 79 70-120 (mg/dL) Final Performing Location
--- OUTSIDE RECORDS SUMMARY | 2024-10-02 03:24 | External Medical Summary | Summary of Care ---
Author Name Unknown Organization [facility] Address [address] [place] [address] Phone [phone] Care Team Providers Care Wood Piler Name Role Phone Gregory Rausch MD Primary Care Provider [phone] Reason for Visit * Reason Onset Date Comments Advice 04/22/2024 Cdif Encounter Details Date Type Department Care Team (Late st Contact Info) Description 04/22/2024 Telephone Family Practice [facility] [address] [place] [address] Gregory Rausch MD [address] [place] [address] Advice (Cdif) Allergies Active Allergy Reactions Criticality Noted Date Comments Adhesive Tape 07/02/2017 Can tolerate band-aids Glycerin Other (Please comment) 03/12/2008 Topical agents with glycein-burning & itching Lactose 12/09/2014 Dairy - gas Lisinopril Cough 01/21/2010 Monosodium Glutamate Edema Other 03/12/2008 Hands and feet Penicillins Rash 11/14/2007 documented as of this encounter (statuses as of 07/22/2024) Medications Medication Sig Dispensed Refills Start Date [...] ns:DM type 2, not at goal ([facility]) 3 every 15 minutes until glucose is [...] feet once daily. 400 g 2 01/10/20 Active Insulin Aspart 100 UNIT/ML Injection Solution [...] Additional Information Patient not taking.Reported on 07/10/2024 DULoxetine HCl 20 MG Oral Capsule Delayed Release Particles (Cymbalta) Take 1 Capsule by mouth in the morning. 30 Capsule 5 12/12/19 24 Discontinued(Re fill) Clopidogrel Bisulfate 75 MG Oral Tablet (pLAVix) Take 1 Tablet by mouth in the morning. 90 Tablet 2 01/10/20 24 024 Discontinued(Re fill) Levothyroxine Sodium 75 MCG Oral Tablet (Levoxyl)Indicatio ns:Hypothyroidism TAKE 1 TAB BY MOUTH DAILY FIRST THING IN AM, AT LEAST 30 MIN PRIOR TO BREAKFAST OR OTHER MEDICATIONS 90 Tablet 2 01/10/20 24 024 Discontinued(Re fill) Ozempic (2 MG/DOSE) 8 MG/3ML Subcutaneous Solution Pen-injector (Semaglutide (2 MG/DOSE))Indicatio ns:weekly on fridays Inject 2 mg under the skin once a week. 9 mL 3 01/09/20 24 024 Discontinued(Re fill) Atorvastatin Calcium 40 MG Oral Tablet (Lipitor)Indicatio ns:Heart failure, systolic, due to idiopathic cardiomyopathy (HCC),S/P aortic valve replacement,HTN, goal below 140/80,Dyslipidemi a, goal LDL below 70 Take 1 tablet by mouth daily to prevent heart attack/stroke, protect kidney, and cholesterol 90 Tablet 2 01/10/20 24 024 Discontinued(Re fill) Meclizine HCl 25 MG Oral Tablet (Antivert)Indicati ons:Muscle tension headache Take 2 Tablets by mouth 2 times a day. 360 Tablet 2 01/10/20 24 024 Discontinued(Re fill) Metoprolol Tartrate 25 MG Oral Tablet (Lopressor) Take 1 Tablet by mouth in the morning and 1 Tablet before bedtime. 60 Tablet 5 01/10/20 24 024 Discontinued(Me dication/Dose Changed) Gabapentin 300 MG Oral Capsule (Neurontin) Take 1 Capsule by mouth in the morning and 1 Capsule at noon and 1 Capsule before bedtime. 90 Capsule 5 02/04/20 24 024 Discontinued(Tr ansferred) Fluticasone Propionate 50 MCG/ACT Nasal Suspension (Flonase)Indicatio ns:Dizziness Administer 2 Sprays into each nostril in the morning. 16 g 3 02/07/20 24 024 Discontinued(Re fill) Saccharomyces boulardii 250 MG Oral Capsule (Florastor) Take 1 Capsule by mouth in the morning and 1 Capsule before bedtime. 60 Capsule 02/07/20 24 024 Discontinued(Re fill) Magnesium Oxide -Mg Supplement 400 (240 Mg) MG Oral Tablet (Mag-Ox)Indication s:HTN, goal below 130/80 One tablet by mouth daily in the morning 90 Tablet 3 03/07/20 24 024 Discontinued(Re fill) Tresiba FlexTouch 200 UNIT/ML [...] the morning. 6 mL 2 03/14/20 24 024 Discontinued(Re fill) Nystatin 958162 UNIT/GM External Powder (Nystop)Indication s:Candidal intertrigo APPLY TOPICALLY TO AFFECTED AREA 3 TIMES A DAY. 60 g 1 04/14/20 24 024 Discontinued Butalbital-Aspirin -Caffeine 50-325-40 MG Oral Capsule (Fiorinal)Indicati ons:Acute intractable tension-type headache Take 1 Capsule by mouth every 4 hours as needed for Headache. 30 Capsule 04/18/20 24 08/12/2 024 Discontinued(Re fill) documented as of this encounter (statuses as of 07/22/2024) Active Problems Problem Noted Date Diagnosed Date [...] eye 09/28/2020 Coronary artery disease invo lving [place] coronary artery of [place] heart without angina pectoris 12/16/2019 Last [...] as of this encounter (statuses as of 07/22/2024) Resolved Problems Problem Noted Date Diagnosed Date [...] 12/21/2016 Diabetes mellitus 01/05/2014 12/21/2016 LEYVA RESEARCH OTHER*[id number] 01/05/2014 12/21/2016 Axillary pain 11/03/2013 12/21/2016 Obesity, [...] to be scanned into Electronic Medical Record InfoBasis V710 Clinical Trial*[id number] 12/22/2010 04/14/2011 S/P aortic valve replacement 12/01/2010 08/26/2011 S/P AORTIC VALVE REPLACEMENT - #25 pericardial Mc valve 11/01/2010 06/28/2018 Overview: Aortic valve replacement with #25 pericardial Mc valve, model 2800TFX, serial number [id number] (Dr. Walker) [employer] V710 Clinical Trial*[id number] 10/18/2010 11/21/2010 Type 2 diabetes mellitus wit [...] as of this encounter (statuses as of 07/22/2024) Immunizations Name Administration Dates Next Due COVID-19 mRNA, LNP-s, No Pre serve, 2-Dose Series (Moderna) 10/25/2021,02/16/2021,01/18/2021 HEP A - Hepatitis A (Adult > 18 yrs) 06/07/2018, 12/05/2017 Hepatitis B, 20+ yrs 06/07/2018,01/08/20 18,12/05/2017,06/15,10/27/2013,09/12/2013 PPD 10/26/2019,10/17/2019 Pneumococcal Conjugate Vacci ne, 20-valent ([id number]) 06/22/2023 Pneumococcal Polysaccharide PPV23 (Pneumovax) 01/02/2008 Seasonal [...] Telephone Encounter - Gregory Rausch MD - 04/28/2024 12:20 PM EDT Yes she has LEYVA. I know this. * Telephone Encounter - Arina Daniels LPN - 04/28/2024 8:54 AM EDT Patient is aware and verbalizes understanding of Dr. Rausch's message. She did have a question. She stated that she has cirrhosis of the liver stage 3. She has not talkedto PCP about it for years but she wanted to check in with PCP about it. She did not have any specific questions. * Telephone Encounter - William Self OSA - 04/28/2024 8:50 AM EDT Reason for patient's call: Returning call Caller was transferred to Arina at the nurse line. * Telephone Encounter - Thao Ch MED ASSIST - 04/25/2024 12:09 PM EDT Unable to reach, left message to return call. * Telephone Encounter - Karina Douglass LPN - 04/24/2024 4:28 PM EDT Called, left message for patient to return call. Order for stool sample placed. Needs specimen to confirm c-diff. * Telephone Encounter - Lexii Curry OSA - 04/23/2024 12:06 PM EDT Patient returning call. * Telephone Encounter - Gayle Duncan LPN - 04/23/2024 11:46 AM EDT Called pt, LMOM for return call * Telephone Encounter - Gregory Rausch MD - 04/23/2024 7:57 AM EDT We need to order stool studies. Just because she has diarrhea doesn't necessarily mean it's a c. Diff infection. Also [facility] should probably be made aware of this as they could have come to her house to collect a sample etc. Nonetheless, I will order a stool study and we can go from there. * Telephone Encounter - Gayle Duncan LPN - 04/22/2024 7:14 PM EDT Called and spoke with pt who states she suspects the infection Pt states for the past 3 days she has had very loose stools, states today she has had 8 watery BM Are you willing to order testing or appt needed. Please advise * Telephone Encounter - Gregory Rausch MD - 04/22/2024 4:42 PM EDT How was this confirmed? What doctor/provider ordered the stool study? Why aren't they treating it? Need MUCH more info. * Telephone Encounter - Kal Dumont OSA - 04/22/2024 2:37 PM EDT Patient wanted to let Dr. Rausch know she has Cdif again, and is requesting a callback or have an order placed for Dificid if possible. documented in this encounter Plan of Treatment Upcoming Encounters Date Type Department Care Team (Late st Contact Info) Description 07/31/2024 11:15 AM EST Office Visit Ophthalmology, [facility] [address] [place] [address] Rasmey Burnett DO [address] [facility] [place] [address] 08/07/2024 2:30 PM EST Home Visit [facility] at [facility] [address] [address] Zurdo Christina, RN [address] [address] 08/12/2024 9:20 AM EST Office Visit Family Practice [facility] [address] [address] Gregory Rausch MD [address] [place] [address] 08/19/2024 9:00 AM EST Office Visit Pharmacy, [facility] [place] [place] [address] [facility] [place] [address] Pharmacist1, [facility] [address] [facility] [place] [address] 09/09/2024 10:00 AM EST Scheduled Telephone [facility], [facility] [address] [facility] [place] [address] Lakesha King, RDN [address] [place] [address] 11/03/2024 11:00 AM EST Office Visit Sleep Disorders [facility] [address] [facility] [place] [phone] Christina Birch DO [address] [address] 11/04/2024 9:30 AM EST Office Visit Gastroenterology, [facility] [address] [facility] [place] [address] Tia Taylor CRNP [address] [address] 01/26/2025 11:40 AM EDT Office Visit Nephrology, [facility] [address] [place] [address] Fidelina Baumann MD [address] [facility] [place] [address] Scheduled Procedures Name Priority Associated Diagnoses Date/Ti [...] 10/25/2021, 02/16/2021, 01/18/2021 CKD PHOS USE SMARTSET 34653 06/18/202405/26, 06/16/2023, 06/15/2023, Additional history exists HbA1c 08/01/2024 01/30/2024, 08/25, 07/31/2023, Additional history exists Diabetic Eye Exam 09/13/2024 09/13/2023, , 09/13/2023, Additional history exists B-12 09/18/2024 09/18/2023, 08/24, 2020, Additional history exists GFR 11/01/2024 05/01/2024, 12/23, 10/15/2023, Additional history exists Albumin/Creatinine Ratio 01/07/2025 024, 03/09/2023, 12/22/2022, Additional history exists CKD HGB USE SMARTSET 46578 01/07/202501/07, 01/08/2024, 10/15/2023, Additional history exists TSH [...] this encounter Medical Devices Implanted Type Area [place] Driver Device Identifier Shelf Expiration Date Model / Serial / Lot Cath Roselia Single Lumen - [id number] Implanted:Qty : 1 on 03/12/2008 at OR [facility] Left: Chest [facility] *DO NOT USE* 07/25/2012 21-4053-24 / / [id number] Sut Steel 6 M654g - [id number] Implanted:Qty : 1 on 11/01/2010 at OR [facility] N/A: Chest DO NOT USE M654G / / Sut Steel 6 M654g - [id number] Implanted:Qty : 1 on 11/01/2010 at OR [facility] N/A: Chest DO NOT USE M654G / / Valve Tarsha Aortic [id number] - [id number] Implanted:Qty : 1 on 11/01/2010 at OR [facility] N/A: Heart [employer] 05/20/2012 [id number] / / [id number] Description:[email or web address] Mesh Soft 82p51up - [id number] Implanted:Qty : 1 on 10/10/2019 by Gigi Hendrickson MD [place] [facility] [place]/A: Abdomen CR BARD : DAVOL [id number] 05/21/2024 [id number] / / [id number] Lens 22.5 Sn60wf - [id number] - [id number] Implanted:Qty : 1 on 09/15/2020 by Renaldo Cook, Cece Acosta MD at OR [facility] Right: Eye IVA : SURGICAL [id number] 05/13/2025 SN60 WF.225 / [id number] / [id number] Lens 21.5 Sn60wf - [id number] - [id number] Implanted:Qty : 1 on 12/19/2023 by Ramsey Burnett DO at OR [facility] Left: Eye IVA : SURGICAL 12/03/2024 SN60WF.2 15 / [id number] / documented as of this encounter Results * (ABNORMAL) CLOSTRIDIUM DIFFICILE, PCR (05/01/2024 10:53 AM EDT) Stool Consistency Liquid 05/01/2024 5:22 PM EDT [facility] Clostridium difficile Result Positive for C. difficile toxin B gene DNA by PCR (Amplified Probe). Presumptive positive for C. difficile 027-NAP1-B1 strain by PCR (Amplified Probe).(A) Negative 05/01/2024 5:22 PM EDT [facility] Stool Stool specimen / Unknown Non-blood Collection / Unknown 05/01/2024 10:53 AM EDT 05/01/2024 10:53 AM EDT Gregory Rausch MD LAB MICRO - GENER AL ORDERABLES [facility] [address] [place] [address] documented in this encounter Visit Diagnoses Diagnosis Diarrhea, unspecified type- Primary documented in this encounter Additional Health Concerns Infection Onset Date Last Indicated Resolved Time C. difficile Rule-Out 05/01/2024 05/01/20242023 5:22 PM EDT C. difficile 05/01/2024 05/01/2024 05/31/2024 12:1 9 [...] statute hierarchy) Jovita Ovalle Adult Child Health Moving Consultant resentative (appointed verbally by patient or by statute hierarchy) [email or web address] Care Teams Wood Piler Relationship Specialty Start Date End Date Gregory Rausch MD [address] [place] [address] PCP - General Family Medicine 02/12/20 documented as of this encounter
--- OUTSIDE RECORDS SUMMARY | 2024-10-02 03:24 | External Medical Summary | Summary of Care ---
Author Name Unknown Organization [facility] Address [address] [place] [address] Phone [phone] Care Team Providers Care Cafeteria Assistant Name Role Phone Gregory Rausch MD Primary Care Provider [phone] Reason for Visit * Auth/Cert Specialty Diagnoses / Procedures Referred By Contac t Referred To Contact Diagnoses Pancolitis (HCC) Pancolitis (HCC) [K51.00] Procedures COLONOSCOPY, DIAGNOSTIC (RECTUM) COLONOSCOPY FLEXIBLE PROXIMAL DIAGNOSTIC Ratna Lopez MD [address] [place] [address] [facility] [address] [place] [address] Referral ID Status Reason Start Date Expiration Date Visits Re quested Visits Authorized [id number] Encounter Details Date Type Department Care Team (Latest Contact Info) Description 07/16/2024 1:57 PM EDT - 07/16/2024 4:17 PM EDT Hospital Encounter [facility], Endoscopy Room [facility] [address] [place] [phone] Rajinder Wheeler MD [address] [place] [address] Colonoscopy Discharge Disposition: Home - Self Care Allergies Active Allergy Reactions Criticality Noted Date Comments Adhesive Tape 07/02/2017 Can tolerate band-aids Glycerin Other (Please comment) 03/12/2008 Topical agents with glycein-burning & itching Lactose 12/09/2014 Dairy - gas Lisinopril Cough 01/21/2010 Monosodium Glutamate Edema Other 03/12/2008 Hands and feet Penicillins Rash 11/14/2007 documented as of this encounter (statuses as of 07/17/2024) Medications Medication Sig Dispensed Refills Start Date [...] Indications: weekly on fridays, Reported on 07/09/2024 Rzrnirzxej-Lkdmkao-N affeine 50-325-40 MG Oral Capsule (Fiorinal)Indication s:Acute [...] morning. 18 mL 3 06/20/2024 Active Klayesta 498511 UNIT/GM External Powder (Nystatin)Indication s:Candidal intertrigo APPLY [...] as of this encounter (statuses as of 07/17/2024) Active Problems Problem Noted Date Diagnosed Date [...] eye 09/28/2020 Coronary artery disease invo lving hoh coronary artery of hoh heart without angina pectoris 12/16/2019 Last Assessment [...] as of this encounter (statuses as of 07/17/2024) Resolved Problems Problem Noted Date Diagnosed Date [...] mgmt 02/19/2014 12/21/2016 Diabetes mellitus 01/05/2014 12/21/2016 [facility] OTHER*[id number] 01/05/2014 12/21/2016 Axillary pain 11/03/2013 12/21/2016 Obesity, [...] into Electronic Medical Record [facility] V710 Clinical Trial*[id number] 12/22/2010 04/14/2011 S/P aortic valve replacement 12/01/2010 08/26/2011 S/P AORTIC VALVE REPLACEMENT - #25 pericardial Mc valve 11/01/2010 06/28/2018 Overview: Aortic valve replacement with #25 pericardial Mc valve, model [id number], serial number [id number] (Dr. Walker) [facility] V710 Clinical Trial*[id number] 10/18/2010 11/21/2010 Type 2 diabetes mellitus wit [...] as of this encounter (statuses as of 07/17/2024) Immunizations Name Administration Dates Next Due COVID-19 mRNA, LNP-s, No Pre serve, 2-Dose Series (Moderna) 10/25/2021,02/16/2021,01/18/2021 HEP A - Hepatitis A (Adult > 18 yrs) 06/07/2018, 12/05/2017 Hepatitis B, 20+ yrs 06/07/2018,01/08/20 18,12/05/2017,06/15,10/27/2013,09/12/2013 PPD 10/26/2019,10/17/2019 Pneumococcal Conjugate Vacci ne, 20-valent ([id number]) 06/22/2023 Pneumococcal Polysaccharide PPV23 (Pneumovax) 01/02/2008 Seasonal [...] Sign Reading Time Taken Comments Blood Pressure 143/65 07/16/2024 3:54 PM EDT Pulse 85 07/16/2024 3:54 PM EDT Temperature 36.1 C (97 F) 07/16/2024 3:54 PM EDT Respiratory Rate 16 07/16/2024 3:54 PM EDT Oxygen Saturation 98% 07/16/2024 3:54 PM EDT Inhaled Oxygen Concentration - - Weight 70.8 kg (156 lb) 07/09/2024 1:47 PM EDT Height 149.9 cm (4' 11") 07/09/2024 1:47 PM EDT Body Mass Index 31.51 07/09/2024 1:47 PM EDT documented in this encounter Functional [...] No 11/06/2017 documented as of this encounter H&P Notes * Rajinder Wheeler MD - 07/16/2024 3:02 PM EDT Endoscopy Pre-Procedure Assessment Name: Jovita Rose Date: 07/16/2024 Time: 3:02 PM Procedure(s): Colonoscopy; with Indication(s) of abnormalities on radiologic examination Endoscopy Pre-Procedure Assessment: Prior to the procedure, the patient was identified. The patient's history, medications and allergies were reviewed as per the Anesthesia Assessment. The patient is competent. The risks and benefits of the proposed procedure and the planned sedation were discussed with the patient. All questions were answered and informed consent for the procedure was obtained. BP 167/78 | Pulse 73 | Temp 36.8 C (98.2 F) (Tympanic) | Resp 16 | Ht 1.499 m (4' 11") | Wt 70.8 kg (156 lb) | LMP 04/07/2011 | SpO2 98% | BMI 31.51 kg/m | BSA 1.72 m Review of patient's allergies indicates: Allergen Reactions Adhesive Tape Can tolerate band-aids Glycerin Other (Please comment) Topical agents with glycein-burning & itching Lactose Dairy - gas Lisinopril Cough Monosodium Glutamate Edema Other Hands and feet Pcn [Penicillins] Rash Prior to Admission medications Medication Sig Last Dose Discont. Magnesium Oxide -Mg Supplement 400 (240 Mg) MG Oral Tablet (Mag-Ox) One tablet by mouth daily in the morning Past Week Klayesta 065993 UNIT/GM External Powder (Nystatin) APPLY TOPICALLY TO AFFECTED AREA 3 TIMES A DAY 07/08/2024 Metoprolol Tartrate 50 MG Oral Tablet (Lopressor) TAKE 1 TABLET BY MOUTH IN THE MORNING AND BEFORE BEDTIME 07/16/2024 Tresiba FlexTouch 200 UNIT/ML Subcutaneous Solution Pen-injector (Insulin Degludec) Inject 36 Unitsunder the skin in the morning. 07/15/2024 Fluticasone Propionate 50 MCG/ACT Nasal Suspension (Flonase) Administer 2 Sprays into each nostril in the morning. Past Week Atorvastatin Calcium 40 MG Oral Tablet (Lipitor) Take 1 tablet by mouth daily to prevent heart attack/stroke, protect kidney, and cholesterol 07/16/2024 Wtqwewzgni-Ivkdcah-Wnhmqlsu 50-325-40 MG Oral Capsule (Fiorinal) Take 1 Capsule by mouth every 4 hours as needed for Headache. Past Week Clopidogrel Bisulfate 75 MG Oral Tablet (pLAVix) Take 1 Tablet by mouth in the morning. 07/11/2024 Gabapentin 300 MG Oral Capsule (Neurontin) Take 1 Capsule by mouth in the morning and 1 Capsule at noon and 1 Capsule before bedtime. 07/16/2024 Levothyroxine Sodium 75 MCG Oral Tablet (Levoxyl) TAKE 1 TAB BY MOUTH DAILY FIRST THING IN AM, AT LEAST 30 MIN PRIOR TO BREAKFAST OR OTHER MEDICATIONS 07/15/2024 Meclizine HCl 25 MG Oral Tablet (Antivert) Take 2 Tablets by mouth 2 times a day. 07/15/2024 DULoxetine HCl 20 MG Oral Capsule Delayed Release Particles (Cymbalta) Take 1 Capsule by mouth in the morning. 07/16/2024 Insulin Aspart 100 UNIT/ML Injection Solution (NovoLOG) Use up to 50 units per day in Omnipod. 07/16/2024 Potassium Chloride Shannon ER 10 MEQ Oral Tablet Extended Release Take 1 Tablet by mouth in the morning and 1 Tablet before bedtime. Past Week Ammonium Lactate 12 % External Lotion (Lac-Hydrin) Apply to both feet once daily. 07/08/2024 Aquaphor External Ointment Apply topically to affected area as needed for Dry Skin. Apply to face 07/08/2024 One-A-Day Womens 50 Plus Oral Tablet Take 1 Tablet by mouth in the morning. Past Week CPAP every night at bedtime. 07/15/2024 traZODone HCl 100 MG Oral Tablet (Desyrel) Take 1 Tablet by mouth at bedtime. Past Week Gaviscon 80-14.2 MG Oral Tablet Chewable (Alum Hydroxide-Mag Trisilicate) Take by mouth as needed. Past Week Melatonin 10 MG Oral Capsule Take 1 Capsule by mouth at bedtime. Patient not taking: Reported on 07/10/2024 Past Week AZO Cranberry 250-30 MG Oral Tablet Take 1 Tablet by mouth in the morning and 1 Tablet before bedtime. Past Week aspirin enteric coated 81 MG TBEC Take 1 Tab by mouth daily. 07/14/2024 Vancomycin HCl 125 MG Oral Capsule (Vancocin) TAKE 1 TABLET ORALLY 4 TIMES DAILY FOR 2 WKS, THEN 2 X/DAY X WK, THEN DAILY X 1 WK, THEN EVERY OTHER DAY FOR 8 WKS Patient not taking: Reported on 07/10/2024 Not Taking Sulfamethoxazole-Trimethoprim 800-160 MG Oral Tablet (Bactrim DS) Take 1 Tablet by mouth in the morning and 1 Tablet before bedtime. Do all this for 3 days. Until gone. Ozempic (2 MG/DOSE) 8 MG/3ML Subcutaneous Solution Pen-injector (Semaglutide (2 MG/DOSE)) Inject 2 mg under the skin once a week. Patient taking differently: Inject 2 mg under the skin once a week. Tuesdays07/08/2024 Saccharomyces boulardii 250 MG Oral Capsule (Florastor) Take 1 Capsule by mouth in the morning and 1 Capsule before bedtime. Not Taking Dificid 200 MG Oral Tablet (Fidaxomicin) Take 1 Tablet by mouth in the morning and 1 Tablet before bedtime. Patient not taking: Reported on 06/30/2024 Not Taking Loperamide HCl 2 MG Oral Capsule (Imodium A-D) Take 1 Capsule by mouth 4 times a day as needed for Diarrhea. Patient not taking: Reported on 07/09/2024 Not Taking Omnipod 5 G6 Intro (Gen 5) Kit Use as directed. Use to delivery insulin via insulin pump Patient not taking: Reported on 07/10/2024 Kysgdrcsot-Uyjzypu-Jaigfuci 50-325-40 MG Oral Tablet (Fiorinal) Take 1 Tablet by mouth every 4 hours as needed for Headache for up to 5 days. BD Insulin Syringe 25G X 1" 1 ML (Insulin Syringe-Needle U-100) Use daily with omnipod as directed DX E11.9 Curity Alcohol Swabs Pad Use as directed as needed OneTouch Verio In Vitro Strip (Glucose Blood) Use up to 4 times a day E11.9 BD Pen Needle Short U/F 31G X 8 MM Use with insulin 4 times daily Probiotic (Lactobacillus) Oral Capsule Take 2 Capsules by mouth in the morning. Patient not taking: Reported on 07/16/2024 Not Taking OneTouch Delica Lancets 33G TEST 4 TIMES DAILY DIRECTED, E11.9 OneTouch Verio w/Device Kit Use up to 4 times a day E11.9 BD Glucose 5 GM Oral Tablet Chewable (Glucose) 3 every 15 minutes until glucose is > 100 mg/dL for hypoglycemia E11.9 Physical Exam: Mental Status Examination: alert and oriented. Airway Examination: normal oropharyngeal airway and neck mobility. Respiratory Examination: clear to auscultation. CV Examination: Regular rate and rythm, no murmurs. ASA Grade: II - A patient with mild systemic disease. After reviewing the risks and benefits, the patient was deemed in satisfactory condition to undergothe procedure. The anesthesia plan was to use sedation. Patient was explained in detail regarding risks, benefits, limitations and alternatives of the above endoscopic procedure. Risks of intravenous sedation used for procedure were also explained. Risks include, but not limited to perforation, bleeding, infection, respiratory distress, cardiac arrest and . Risk of acute pancreatitis and necrosis if ERCP is done. Patient is also aware about the possibility of missed lesion. Patient's questions were answered. The patient verbalized understandingthe information and agreed to undergo the procedure. Discussed with the patient that he/she is at an explicit higher risk for complications in comparison to other patients Rajinder Wheeler MD 07/16/2024 documented in this encounter Procedure Notes * Arina Knapp PA-C - 07/16/2024 3:05 PM EDTAssociated Order(s): COLONOSCOPY [facility] Patient Name: Jovita Rose Procedure Date: 07/16/2024 3:05 PM Date of : 1960 Admit Type: Outpatient Note Status: Finalized Date of : 1960 Admit Type: Outpatient Age: 63 Room: [facility] Gender: Female Note Status: Finalized Procedure: Colonoscopy Indications: Abnormal CT of the GI tract Providers: Rajinder Wheeler MD (Doctor), Kyrie Calles RN Referring MD: [place] Mantilla (Referring MD), Gregory Rausch MD (Referring MD) Medicines: Propofol per Anesthesia Complications: No immediate complications. Procedure: Pre-Anesthesia Assessment: - Prior to the procedure, a History and Physical was performed, and patient medications, allergies and sensitivities were reviewed. The patient's tolerance of previous anesthesia was reviewed. - The risks and benefits of the procedure and the sedation options and risks were discussed with the patient. All questions were answered and informed consent was obtained. - Patient identification and proposed procedure were verified prior to the procedure by the physician and the nurse. The procedure was verified in the procedure room. - Pre-procedure physical examination revealed no contraindications to sedation. After I obtained informed consent, the scope was passed under direct vision. All instruments were visually inspected immediately before and after removal from the patient to ensure they are fully intact. Throughout the procedure, the patient's blood pressure, pulse, and oxygen saturations were monitored continuously. The [id number] Colonoscope ([id number]) was introduced through the anus and advanced to the cecum, identified by appendiceal orifice and ileocecal valve. The colonoscopy was performed without difficulty. The patient tolerated the procedure well. The quality of the bowel preparation was good. Findings & Specimens: The perianal and digital rectal examinations were normal. There was evidence of a prior end-to-end colo-colonic anastomosis in the sigmoid colon. This was patent and was characterized by healthy appearing mucosa. The anastomosis was traversed. Non-bleeding internal hemorrhoids were found during retroflexion. The hemorrhoids were small. Impression: - Patent end-to-end colo-colonic anastomosis, characterized by healthy appearing mucosa. - Non-bleeding internal hemorrhoids. - No specimens collected. Recommendation: - Discharge patient to home. - Repeat colonoscopy in 5 years for screening purposes. - Return to referring physician. Rajinder Wheeler MD 07/16/2024 3:36:08 PM This report has been signed electronically. documented in this encounter Nursing Notes * Brook Yanes RN - 07/16/2024 4:16 PM EDT Patient is alert, pain free, passing flatus and tolerating po fluids prior to discharge. Patient has been visited by Dr. Wheeler. Patient has received and demonstrates understanding of discharge instructions. Patient is transported via w/c to private auto accompanied by endo staff. * Brook Yanes RN - 07/16/2024 3:38 PM EDT Patient transferred to post endo s/p colonoscopy. Patient awake Respirations are even and unlabored on room air. NSR in the 70s on the monitor. Abdomen soft and non distended. Vital signs stable. * Hussain Calles RN - 07/16/2024 3:35 PM EDT No abdominal pressure given See anesthesia record for medication administered during procedure. Hussain Calles RN Pre cleaning of scope at the bedside started by cable television line technician. * Mecca Soria RN - 07/16/2024 2:46 PM EDT Pt prepped and ready for anesthesia to assess. Call zapata in reach. documented in this encounter Plan of Treatment Upcoming Encounters Date Type Department Care Team (Late st Contact Info) Description 07/21/2024 2:00 PM EDT Scheduled Telephone [facility], [facility] [address] [place] [address] Lakesha King RDN [address] [place] [address] 07/31/2024 11:15 AM EST Office Visit Ophthalmology, [facility] [address] [facility] [place] [address] Ramsey Burnett, DO [address] [facility] [place] [address] 08/07/2024 2:30 PM EST [facility], [facility] [address] [facility] [place] [address] Zurdo Christina, PRABHA [address] [facility] [place] [address] 08/12/2024 9:20 AM EST Office Visit Family Practice [facility] [address] [facility] [place] [address] Gregory Rausch MD [address] [facility] [place] [address] 08/19/2024 9:00 AM EST Office Visit Pharmacy, [facility] [place] [address] [facility] [place] [address] Pharmacist1, [facility] [address] [facility] [place] [address] 11/03/2024 11:00 AM EST Office Visit Sleep Disorders Ctr [facility] [address] [facility] [place] [phone] Christina Birch, DO [address] [facility] [place] [address] 11/04/2024 9:30 AM EST Office Visit Gastroenterology, [facility] [address] [facility] [place] [address] Tia Taylor CRNP [address] [place] [address] 01/26/2025 11:40 AM EDT Office Visit Nephrology, [facility] [address] [place] [address] Fidelina Baumann MD [address] [place] [address] Scheduled Procedures Name Priority Associated Diagnoses Date/Ti [...] 10/25/2021, 02/16/2021, 01/18/2021 CKD PHOS USE SMARTSET 84032 06/18/202405/26, 06/16/2023, 06/15/2023, Additional history exists HbA1c 08/01/2024 01/30/2024, 08/25, 07/31/2023, Additional history exists Diabetic Eye Exam 09/13/2024 09/13/2023, , 09/13/2023, Additional history exists B-12 09/18/2024 09/18/2023, 08/24, 2020, Additional history exists GFR 11/01/2024 05/01/2024, 12/23, 10/15/2023, Additional history exists Albumin/Creatinine Ratio 01/07/2025 024, 03/09/2023, 12/22/2022, Additional history exists CKD HGB USE SMARTSET 51166 01/07/202501/07, 01/08/2024, 10/15/2023, Additional history exists TSH 01/07/2025 01/08/2024, 09/25, 06/06/2023, Additional history exists Colonoscopy 07/16/2027 07/16/2024, 12/2022, 09/13/2022, Additional history exists Colorectal Cancer Screening 07/16/2027 [...] this encounter Medical Devices Implanted Type Area Manual Arts Therapy Teacher Device Identifier Shelf Expiration Date Model / Serial / Lot Cath Roselia Single Lumen - [id number] Implanted:Qty : 1 on 03/12/2008 at OR [facility] Left: Chest [facility] *DO NOT USE* 07/25/2012 21-4053-24 / / [id number] Sut Steel 6 M654g - [id number] Implanted:Qty : 1 on 11/01/2010 at OR [facility] N/A: Chest DO NOT USE M654G / / Sut Steel 6 M654g - [id number] Implanted:Qty : 1 on 11/01/2010 at OR [facility] N/A: Chest DO NOT USE M654G / / Valve Tarsha Aortic [id number] - [id number] Implanted:Qty : 1 on 11/01/2010 at OR [facility] N/A: Heart MC MpaxCISocialVest DANIEL 05/20/2012 [id number] / / [id number] Description:[email or web address] Mesh Soft 48z88tr - [id number] Implanted:Qty : 1 on 10/10/2019 by Gigi Hendrickson MD at [place] [facility] N/A: Abdomen CR BARD : DAVOL [id number] 05/21/2024 [id number] / / [id number] Lens 22.5 Sn60wf - [id number] - [id number] Implanted:Qty : 1 on 09/15/2020 by Cece Roland MD at OR [facility] Right: Eye IVA : SURGICAL [id number] 05/13/2025 SN60 WF.225 / [id number] / [id number] Lens 21.5 Sn60wf - [id number] - [id number] Implanted:Qty : 1 on 12/19/2023 by Ramsey Burnett DO at OR [facility] Left: Eye IVA : SURGICAL 12/03/2024 SN60WF.2 15 / [id number] / documented as of this encounter Procedures Procedure Name Priority Date/Time Associated Diagnosis Comments GLUCOSE METER, POINT OF CARE SARWAT 07/16/2024 3:41 PM EDT COLONOSCOPY 07/16/2024 3:05 PM EDT GLUCOSE METER, POINT OF CARE SARWAT 07/16/2024 2:39 PM EDT documented in this encounter Results * GLUCOSE METER, POINT OF CARE (07/16/2024 3:41 PM EDT) GLUCOSE - POCT 79 70 - 120 mg/dL 07/16/2024 3:45 PM EDT [facility] Blood Whole blood specimen / Unknown 07/16/2024 3:41 PM EDT 07/16/2024 3:45 PM EDT Rajinder Wheeler MD LAB POINT OF CARE T EST DOCKED DEVICE UNSOLICITED RESULTS [facility] [address] [facility] [place] [address] * COLONOSCOPY (07/16/2024 3:05 PM EDT) 07/16/2024 3:05 PM EDT Narrative Procedure Note Arina Knapp PA-C - 07/16/2024 3:05 PM EDT [facility] Patient Name: Jovita Rose Procedure Date: 07/16/2024 3:05 PM Date of : 1960 Admit Type: Outpatient Note Status:Finalized Date of : 1960 Admit Type: Outpatient Age: 63 Room: Advanced [facility] Gender: Female Note Status: Finalized Procedure: Colonoscopy Indications: Abnormal CT of the GI tract Providers: Rajinder Wheeler MD (Doctor), Kyrie Calles RN Referring MD: [place] Mantilla (Referring MD), Gregory Grace MD (Referring MD) Medicines: Propofol per Anesthesia Complications: No immediate complications. Procedure: Pre-Anesthesia Assessment: - Prior to the procedure, a History and Physicalwas performed, and patient medications, allergies and sensitivities werereviewed. The patient's tolerance of previous anesthesia was reviewed. - The risks and benefits of the procedure and thesedation options and risks were discussed with the patient. All questions wereanswered and informed consent was obtained. - Patient identification and proposed procedurewere verified prior to the procedure by the physician and the nurse. The procedure wasverified in the procedure room. - Pre-procedure physical examination revealed nocontraindications to sedation. After I obtained informed consent, the scope waspassed under direct vision. All instruments were visually inspected immediatelybefore and after removal from the patient to ensure they are fully intact. Throughout the procedure, the patient's bloodpressure, pulse, and oxygen saturations were monitored continuously. The [id number] ([id number]) was introduced through the anus and advanced to the cecum,identified by appendiceal orifice and ileocecal valve. The colonoscopy was performedwithout difficulty. The patient tolerated the procedure well. The quality of thebowel preparation was good. Findings & Specimens: The perianal and digital rectal examinations were normal. There was evidence of a prior end-to-end colo-colonic anastomosis inthe sigmoid colon. This was patent and was characterized by healthy appearing mucosa. The anastomosiswas traversed. Non-bleeding internal hemorrhoids were found during retroflexion. Thehemorrhoids were small. Impression: - Patent end-to-end colo-colonic anastomosis,characterized by healthy appearing mucosa. - Non-bleeding internal hemorrhoids. - No specimens collected. Recommendation: - Discharge patient to home. - Repeat colonoscopy in 5 years for screeningpurposes. - Return to referring physician. Rajinder Wheeler MD 07/16/2024 3:36:08 PM This report has been signed electronically. Arina Knapp PA-C [facility]STR[facility] * GLUCOSE METER, POINT OF CARE (07/16/2024 2:39 PM EDT) GLUCOSE - POCT 90 70 - 120 mg/dL 07/16/2024 2:50 PM EDT [facility] 57 Blood Whole blood specimen / Unknown 07/16/2024 2:39 PM EDT 07/16/2024 2:50 PM EDT Rajinder Wheeler MD LAB POINT OF CARE T EST DOCKED DEVICE UNSOLICITED RESULTS [facility] [address] [place] [address] documented in this encounter Administered Medications Inactive Administered Medications - up to 3 most recent administrations Medication Order MAR Action Action Date Dose Rate Site isolyte-S pH 7.4 infusion Intravenous, at 75 mL/hr, for Outpatient patient Plasma-LYTE 148, isolyte-S, and isolyte-S pH 7.4 are considered equivalent - including for MAR barcode scanning., CONTINUOUS, Starting on Sun07/16/24 at 1500, Until Sun07/16/24 at 2017, Pre-Op Continue from Pre-Op 07/16/2024 3:11 PM EDT 75 mL/hr New Bag 07/16/2024 2:45 PM EDT 75 mL/hr 75 mL/hr documented in this encounter Active and Recently Administered Medications Times are shown in EDT. Continuous Medication Order 07/14/2024 07/15/2024 07/16/2024 isolyte-S pH 7.4 infusion Intravenous, at 75 mL/hr, for Outpatient patient Plasma-LYTE 148, isolyte-S, and isolyte-S pH 7.4 are considered equivalent - including for MAR barcode scanning., CONTINUOUS, Starting on Sun07/16/24 at 1500, Until Sun07/16/24 at 2017, Pre-Op 1445 (New Bag - Prov ider: Mecca Soria RN)1511 (Continue from Pre-Op - Provider: Caridad Phillips CRNA)1539 (Anes Intra-Op Fluid - Provider: Caridad Phillips CRNA) documented in this encounter Advance Directives * [...] statute hierarchy) Jovita Ovalle Adult Child Health Arm Maker resentative (appointed verbally by patient or by statute hierarchy) [email or web address] Care Teams Cafeteria Assistant Relationship Specialty Start Date End Date Gregory Rausch MD [address] [place] [address] PCP - General Family Medicine 02/12/20 documented as of this encounter
--- OUTSIDE RECORDS SUMMARY | 2024-10-02 03:24 | External Medical Summary ---
Author Name Unknown Address Unknown Organization : Laboratory Report Ordering Provider Test Date Status BETO CAUSEY 07/16/2024 14:39:39 Final Observation Date Value Abnormality Reference (Units ) Status Glucose Point of Care 07/16/2024 14:39:39 90 70-120 (mg/dL) Final Performing Location
--- OUTSIDE RECORDS SUMMARY | 2024-10-02 03:25 | External Medical Summary | Summary of Care ---
Author Name Unknown Organization [facility] Address [address] [place] [address] Phone [phone] Care Team Providers Care Plumber Helper Name Role Phone Gregory Rausch MD Primary Care Provider [phone] Reason for Visit * Reason Onset Date Comments FYI 04/09/2024 Encounter Details Date Type Department Care Team (Late st Contact Info) Description 04/09/[address] [facility] [address] [place] [place] [address] Gregory Rausch MD [address] [place] [address] FYI Allergies Active Allergy Reactions Criticality Noted Date Comments Adhesive Tape 07/02/2017 Can tolerate band-aids Glycerin Other (Please comment) 03/12/2008 Topical agents with glycein-burning & itching Lactose 12/09/2014 Dairy - gas Lisinopril Cough 01/21/2010 Monosodium Glutamate Edema Other 03/12/2008 Hands and feet Penicillins Rash 11/14/2007 documented as of this encounter (statuses as of 07/09/2024) Medications Medication Sig Dispensed Refills Start Date [...] as of this encounter (statuses as of 07/09/2024) Active Problems Problem Noted Date Diagnosed Date [...] eye 09/28/2020 Coronary artery disease invo lving pokagon coronary artery of pokagon heart without angina pectoris 12/16/2019 Last Assessment [...] as of this encounter (statuses as of 07/09/2024) Resolved Problems Problem Noted Date Diagnosed Date [...] Last Assessment & Plan: Klebsiella growing from 9/22 -finish omnicef Subconjunctival hemorrhage of right eye [...] 12/21/2016 Diabetes mellitus 01/05/2014 12/21/2016 LEYVA RESEARCH OTHER*[id number] 01/05/2014 12/21/2016 Axillary pain 11/03/2013 12/21/2016 Obesity, [...] FOLLOWING SURGERY, UNSPECIFI ED ([facility] BSO 08/25/2011) 08/26/2011 12/21/2016 ADVANCE DIRECTIVE INFORMATION 04/17/2011 12/21/2016 Overview: Yes, Patient instructed to provide copy of advance directive for provider to review and to be scanned into Electronic Medical Record ADVANCE DIRECTIVE INFORMATION 03/01/2011 12/21/2016 Overview: Yes, Patient instructed to provide copy of advance directive for provider to review and to be scanned into Electronic Medical Record [facility] V710 Clinical Trial*[id number] 12/22/2010 04/14/2011 S/P aortic valve replacement 12/01/2010 08/26/2011 S/P AORTIC VALVE REPLACEMENT - #25 pericardial Mc valve 11/01/2010 06/28/2018 Overview: Aortic valve replacement with #25 pericardial Mc valve, model 2800TFX, serial number [id number] (Dr. Walker) [facility] V710 Clinical Trial*[id number] 10/18/2010 11/21/2010 Type 2 diabetes mellitus wit [...] as of this encounter (statuses as of 07/09/2024) Immunizations Name Administration Dates Next Due COVID-19 mRNA, LNP-s, No Pre serve, 2-Dose Series (Moderna) 10/25/2021,02/16/2021,01/18/2021 HEP A - Hepatitis A (Adult > 18 yrs) 06/07/2018, 12/05/2017 Hepatitis B, 20+ yrs 06/07/2018,01/08/20 18,12/05/2017,06/15,10/27/2013,09/12/2013 PPD 10/26/2019,10/17/2019 Pneumococcal Conjugate Vacci ne, 20-valent ([id number]) 06/22/2023 Pneumococcal Polysaccharide PPV23 (Pneumovax) 01/02/2008 Seasonal [...] Telephone Encounter - Karina Douglass LPN - 04/15/2024 8:29 AM EDT Called, left message for patient to return call. * Telephone Encounter - Maryan Arellano OSA - 04/09/2024 2:26 PM EDT Bs random was 375 and diarrhea is back documented in this encounter Plan of Treatment Upcoming Encounters Date Type Department Care Team (Late st Contact Info) Description 07/15/2024 11:30 AM EDT Office Visit Pharmacy, [facility] [address] [place] [address] Pharmacist1, [facility] [address] [facility] [place] [address] 07/16/2024 2:30 PM EDT Hospital Encounter ENDO [facility], Endoscopy Room [facility] [address] [place] [phone] Rajinder Wheeler MD [address] [place] [address] 07/16/2024 2:30 PM EDT - 07/16/2024 3:00 PM EDT Surgery ENDO [facility], Endoscopy Room [facility] [address] [place] [phone] Rajinder Wheeler MD [address] [place] [address] COLONOSCOPY FLEXIBLE PROXIMAL DIAGNOSTIC 07/21/2024 2:00 PM EDT Scheduled Telephone [facility], [facility] [address] [facility] [place] [address] Lakesha King, RDN [address] [facility] [place] [address] 07/31/2024 11:15 AM EST Office Visit Ophthalmology, [facility] [address] [place] [address] Ramsey Burnett, DO [address] [place] [address] 08/12/2024 9:20 AM EST Office Visit Family Practice [facility] [address] [place] [address] Gregory Rausch MD [address] [place] [address] 08/26/2024 9:00 AM EST Office Visit Pharmacy, [facility] [address] [place] [address] Pharmacist1, [facility] [address] [place] [address] 11/03/2024 11:00 AM EST Office Visit Sleep Disorders Ctr [facility] [address] [place] [address] Christina Birch, [address] [place] [address] 11/04/2024 9:30 AM EST Office Visit Gastroenterology, [facility] [address] [place] [address] Tia Taylor CRNP [address] [place] [address] Scheduled Procedures Name Priority Associated Diagnoses Date/Ti [...] 10/25/2021, 02/16/2021, 01/18/2021 CKD PHOS USE SMARTSET 63445 06/18/202405/26, 06/16/2023, 06/15/2023, Additional history exists HbA1c 08/01/2024 01/30/2024, 08/25, 07/31/2023, Additional history exists Diabetic Eye Exam 09/13/2024 09/13/2023, , 09/13/2023, Additional history exists B-12 09/18/2024 09/18/2023, 08/24, 2020, Additional history exists GFR 11/01/2024 05/01/2024, 12/23, 10/15/2023, Additional history exists Albumin/Creatinine Ratio 01/07/2025 024, 03/09/2023, 12/22/2022, Additional history exists CKD HGB USE SMARTSET 90518 01/07/202501/07, 01/08/2024, 10/15/2023, Additional history exists TSH [...] this encounter Medical Devices Implanted Type Area Rd Lab Technician Device Identifier Shelf Expiration Date Model / Serial / Lot Cath Roselia Single Lumen - [id number] Implanted:Qty : 1 on 03/12/2008 at OR [facility] Left: Chest [employer] *DO NOT USE* 07/25/2012 21-4053-24 / / [id number] Sut Steel 6 M654g - [id number] Implanted:Qty : 1 on 11/01/2010 at OR [facility] N/A: Chest DO NOT USE M654G / / Sut Steel 6 M654g - [id number] Implanted:Qty : 1 on 11/01/2010 at OR [facility] N/A: Chest DO NOT USE M654G / / Valve Tarsha Aortic [id number] - [id number] Implanted:Qty : 1 on 11/01/2010 at OR [facility] N/A: Heart [employer] 05/20/2012 2800TFX-25 / / [id number] Description:[email or web address] Mesh Soft 68m40ga - [id number] Implanted:Qty : 1 on 10/10/2019 by Gigi Hendrickson MD at OR [facility] N/A: Abdomen CR BARD : DAVOL [id number] 05/21/2024 [id number] / / [id number] Lens 22.5 Sn60wf - [id number] - [id number] Implanted:Qty : 1 on 09/15/2020 by Renaldo Cook, Cece Acosta MD at OR [facility] Right: Eye IVA : SURGICAL [id number] 05/13/2025 SN60 WF.225 / [id number] / [id number] Lens 21.5 Sn60wf - [id number] - [id number] Implanted:Qty : 1 on 12/19/2023 by Ramsey Burnett DO at OR [facility] Left: Eye IVA : SURGICAL 12/03/2024 SN60WF.2 15 / [id number] / documented as of this encounter [...] statute hierarchy) Jovita [facility] Adult Child Health [employer] Merchandising Coordinator resentative (appointed verbally by patient or by statute hierarchy) Care Teams Plumber Helper Relationship Specialty Start Date End Date Gregory Rausch MD [address] [place] [address] PCP - General Family Medicine 02/12/20 documented as of this encounter
--- OUTSIDE RECORDS SUMMARY | 2024-10-02 03:25 | External Medical Summary | Summary of Care ---
Author Name Unknown Organization [facility] Address [address] [place] [address] Phone [phone] Care Team Providers Care Lugger Name Role Phone Gregory Rausch MD Primary Care Provider [phone] Reason for Visit * Reason Onset Date Comments Medication Question 07/07/2024 Encounter Details Date Type Department Care Team (Late st Contact Info) Description 07/07/2024 Telephone Cardiology, [facility] [address] [place] [address] Roberto Carlos Muniz, [address] [address] Medication Question Allergies Active Allergy Reactions Criticality Noted Date Comments Adhesive Tape 07/02/2017 Can tolerate band-aids Glycerin Other (Please comment) 03/12/2008 Topical agents with glycein-burning & itching Lactose 12/09/2014 Dairy - gas Lisinopril Cough 01/21/2010 Monosodium Glutamate Edema Other 03/12/2008 Hands and feet Penicillins Rash 11/14/2007 documented as of this encounter (statuses as of 07/11/2024) Medications Medication Sig Dispensed Refills Start Date [...] Indications: weekly on fridays, Reported on 07/09/2024 Flafvyeomk-Tncfjjy-C affeine 50-325-40 MG Oral Capsule (Fiorinal)Indication s:Acute [...] of insulin ([facility]) Inject 36 Units under the skin in the morning. 18 mL 3 06/20/2024 Active Klayesta 903311 UNIT/GM External Powder (Nystatin)Indication s:Candidal intertrigo APPLY [...] as of this encounter (statuses as of 07/11/2024) Active Problems Problem Noted Date Diagnosed Date [...] as of this encounter (statuses as of 07/11/2024) Resolved Problems Problem Noted Date Diagnosed Date [...] 12/21/2016 Diabetes mellitus 01/05/2014 12/21/2016 LEYVA RESEARCH OTHER*[id number] 01/05/2014 12/21/2016 Axillary pain 11/03/2013 12/21/2016 Obesity, [...] FOLLOWING SURGERY, UNSPECIFI ED ([facility] BSO 08/25/2011) 08/26/2011 12/21/2016 ADVANCE DIRECTIVE [...] Medical Record [facility] V710 Clinical Trial*[id number] 12/22/2010 04/14/2011 S/P aortic valve replacement 12/01/2010 08/26/2011 S/P AORTIC VALVE REPLACEMENT - #25 pericardial Mc valve 11/01/2010 06/28/2018 Overview: Aortic valve replacement with #25 pericardial Mc valve, model 2800TFX, serial number [id number] (Dr. Walker) [facility] V710 Clinical Trial*[id number] 10/18/2010 11/21/2010 Type 2 diabetes mellitus wit [...] as of this encounter (statuses as of 07/11/2024) Immunizations Name Administration Dates Next Due COVID-19 mRNA, LNP-s, No Pre serve, 2-Dose Series (Moderna) 10/25/2021,02/16/2021,01/18/2021 HEP A - Hepatitis A (Adult > 18 yrs) 06/07/2018, 12/05/2017 Hepatitis B, 20+ yrs 06/07/2018,01/08/20 18,12/05/2017,06/15,10/27/2013,09/12/2013 PPD 10/26/2019,10/17/2019 Pneumococcal Conjugate Vacci ne, 20-valent ([id number]) 06/22/2023 Pneumococcal Polysaccharide PPV23 (Pneumovax) 01/02/2008 Seasonal [...] encounter Miscellaneous Notes * Telephone Encounter - Rajinder Wheeler MD - 07/11/2024 8:59 AM EDT Please let the patient know she should not take ASA or Plavix on the day of the procedure. * Telephone Encounter - Sylvester Burger LPN - 07/10/2024 2:22 PM EDT Called and informed patient. Patient verbalized understanding. FYI to Dr. Wheeler. * Telephone Encounter - Roberto Carlos Muniz DO - 07/10/2024 2:14 PM EDT Cardiology nursing: Please notify patient that she was on aspirin and clopidogrel due to her history of left main stenting. She should continue these without interruption for colonoscopy . This comes with an increased risk of bleeding however in her situation, this is safer than putting her stent at risk. She is not on Eliquis. I think the initial message was a typing error. Roberto Carlos Muniz DO * Telephone Encounter - German Ambrocio OSA - 07/07/2024 2:06 PM EDT Patient called and is having a colonoscopy on 07/16/24. She is asking if she should hold her Eliquis. Please advise, and call patient, thank you. documented in this encounter Plan of Treatment Upcoming Encounters Date Type Department Care Team (Late st Contact Info) Description 07/15/2024 11:30 AM EDT Office Visit Pharmacy, [facility] [address] [place] [address] Pharmacist1, [facility] [address] [facility] [place] [address] 07/16/2024 2:30 PM EDT Hospital Encounter ENDO [facility], Endoscopy Room [facility] [address] [place] [phone] Rajinder Wheeler MD [address] [place] [address] 07/16/2024 2:30 PM EDT - 07/16/2024 3:00 PM EDT Surgery ENDO [facility], Endoscopy Room [facility] [address] [place] [phone] Rajinder Wheeler MD [address] [place] [address] COLONOSCOPY FLEXIBLE PROXIMAL DIAGNOSTIC 07/21/2024 2:00 PM EDT Scheduled Telephone [facility] [place] [address] [place] [address] Lakesha King, RDN [address] [place] [address] 07/31/2024 11:15 AM EST Office Visit Ophthalmology, [facility] [address] [facility] [place] [address] Ramsey Burnett, DO [address] [place] [address] 08/07/2024 2:30 PM EST Home Visit [facility], [facility] [address] [facility] [place] [address] Zurdo Christina, PRABHA [address] [facility] [place] [address] 08/12/2024 9:20 AM EST Office Visit Family Practice [facility] [address] [facility] [place] [address] Gregory Rausch MD [address] [facility] [place] [address] 08/26/2024 9:00 AM EST Office Visit Pharmacy, [facility] [address] [facility] [address] [place] [address] Pharmacist1, [facility] [address] [facility] [place] [address] 11/03/2024 11:00 AM EST Office Visit Sleep Disorders Ctr [facility] [address] [facility] [place] [phone] Christina Birch, DO [address] [facility] [place] [address] 11/04/2024 9:30 AM EST Office Visit Gastroenterology, [facility] [address] [facility] [place] [address] Tia Taylor CRNP [address] [facility] [place] [address] Scheduled Procedures Name Priority Associated Diagnoses Date/Ti [...] 10/25/2021, 02/16/2021, 01/18/2021 CKD PHOS USE SMARTSET 36908 06/18/202405/26, 06/16/2023, 06/15/2023, Additional history exists HbA1c 08/01/2024 01/30/2024, 08/25, 07/31/2023, Additional history exists Diabetic Eye Exam 09/13/2024 09/13/2023, , 09/13/2023, Additional history exists B-12 09/18/2024 09/18/2023, 08/24, 2020, Additional history exists GFR 11/01/2024 05/01/2024, 12/23, 10/15/2023, Additional history exists Albumin/Creatinine Ratio 01/07/2025 024, 03/09/2023, 12/22/2022, Additional history exists CKD HGB USE SMARTSET 04943 01/07/202501/07, 01/08/2024, 10/15/2023, Additional history exists TSH [...] this encounter Medical Devices Implanted Type Area Fan Mail Editor Device Identifier Shelf Expiration Date Model / Serial / Lot Cath Roselia Single Lumen - [id number] Implanted:Qty : 1 on 03/12/2008 at OR [facility] Left: Chest [facility] [employer] *DO NOT USE* 07/25/2012 21-4053-24 / / [id number] Sut Steel 6 M654g - [id number] Implanted:Qty : 1 on 11/01/2010 at OR [facility] N/A: Chest DO NOT USE M654G / / Sut Steel 6 M654g - [id number] Implanted:Qty : 1 on 11/01/2010 at OR [facility] N/A: Chest DO NOT USE M654G / / Valve Tarsha Aortic [id number] - [id number] Implanted:Qty : 1 on 11/01/2010 at OR [facility] N/A: Heart [employer] 05/20/2012 2800TFX-25 / / [id number] Description:[email or web address] Mesh Soft 62d65rx - [id number] Implanted:Qty : 1 on 10/10/2019 by Gigi Hendrickson MD at OR [facility] N/A: Abdomen CR BARD : DAVOL [id number] 05/21/2024 [id number] / / [id number] Lens 22.5 Sn60wf - [id number] - [id number] Implanted:Qty : 1 on 09/15/2020 by Cece Roland MD at OR [facility] Right: Eye IVA : SURGICAL [id number] 05/13/2025 SN60 WF.225 / [id number] / [id number] Lens 21.5 Sn60wf - [id number] - [id number] Implanted:Qty : 1 on 12/19/2023 by Ramsey Burnett DO at OR [facility] Left: Eye IVA : SURGICAL 12/03/2024 SN60WF.2 15 / [id number] / documented as of this encounter [...] by patient or by statute hierarchy) Jovita [facility] Child [facility] Speech Pathologist resentative (appointed verbally by patient or by statute hierarchy) Care Teams Lugger Relationship Specialty Start Date End Date Gregory Rausch MD [address] [facility] [place] [address] PCP - General Family Medicine 02/12/20 documented as of this encounter
--- OUTSIDE RECORDS SUMMARY | 2024-10-02 03:25 | External Medical Summary | Summary of Care ---
Author Name Unknown Organization [facility] Address [address] [place] [address] Phone [phone] Care Team Providers Care Cruller Maker Machine Name Role Phone Deon Rausch MD Primary Care Provider [phone] Reason for Visit * Reason Onset Date Comments Medication Refill 06/13/2024 Encounter Details Date Type Department Care Team (Late st Contact Info) Description 06/13/2024 Refill Family Practice [facility] [address] [facility] [place] [address] Deon Rausch MD [address] [place] [address] Heart failure, systolic, due to idiopathic cardiomyopathy (HCC); S/P AORTIC VALVE REPLACEMENT - #25 pericardial Mc valve; HTN, goal below 140/80; Dyslipidemia, goal LDL below 70; Hypothyroidism; Muscle tension headache; Type 2 diabetes mellitus with hemoglobin A1c goal of less than 7.0% ([facility]); Type 2 diabetes mellitus with diabetic mononeuropathy, with long-term current use of insulin ([facility]); Type 2 diabetes mellitus with both eyes affected by mild nonproliferative retinopathy and macular edema, with long-term current use of insulin ([facility]); Type 2 diabetes mellitus with stage [...] as of this encounter (statuses as of 07/14/2024) Medications Medication Sig Dispensed Refills Start Date [...] Diarrhea. Active Dificid 200 MG Oral Tablet (Fidaxomicin)Indic ations:C. difficile colitis Take 1 Tablet by mouth in the morning and 1 Tablet before bedtime. 28 Tablet 05/02/20 24 Active Additional Information Patient not taking.Reported on [...] 2 times a day. 360 Tablet 06/16/20 Active Ozempic (2 MG/DOSE) 8 MG/3ML Subcutaneous Solution Pen-injector (Semaglutide (2 MG/DOSE))Indicatio ns:weekly on fridays Inject 2 mg under the skin once a week. 9 mL 1 06/16/20 24 Active Additional Information Patient taking differently:2 mg Subcutaneous QWEEK,Tuesdays, Indications: weekly on fridays, Reported on 07/09/2024 Clopidogrel Bisulfate 75 MG Oral Tablet (pLAVix) [...] Tablet 2 01/10/20 24 024 Discontinued(Re fill) Gabapentin 300 MG Oral Capsule (Neurontin) Take 1 Capsule by mouth in the morning and 1 Capsule at noon and 1 Capsule before bedtime. 90 Capsule 5 02/04/20 24 024 Discontinued(Tr ansferred) Fluticasone Propionate 50 MCG/ACT Nasal Suspension (Flonase)Indicatio ns:Dizziness Administer 2 Sprays into each nostril in the morning. 16 g 3 02/07/20 24 024 Discontinued(Re fill) Magnesium Oxide [...] current use of insulin ([facility]) Inject 36 Units under the skin in the morning. 6 mL 2 03/14/20 24 024 Discontinued(Re fill) Nystatin 400319 UNIT/GM External Powder (Nystop)Indication s:Candidal intertrigo APPLY TOPICALLY TO AFFECTED AREA 3 TIMES A DAY. 60 g 1 04/14/20 24 024 Discontinued Butalbital-Aspirin -Caffeine 50-325-40 MG Oral Capsule (Fiorinal)Indicati ons:Acute intractable tension-type headache Take 1 Capsule by mouth every 4 hours as needed for Headache. 30 Capsule 05/07/20 24 024 Discontinued(Re fill) Vancomycin HCl 125 MG Oral Capsule (Vancocin) 125 mg orally 4 times daily for 2 wks, then 2 x/day x wk, then daily x 1 wk, then every other day for 8 wks 100 Capsule 05/06/20 24 024 Discontinued(Co dication List Clean Up) Metoprolol Tartrate 50 MG Oral Tablet (Lopressor)Indicat ions:HTN, goal below 130/80 Take 1 Tablet by mouth in the morning and 1 Tablet before bedtime. 180 Tablet 3 05/15/20 24 024 Discontinued(Re fill) Atorvastatin Calcium 40 MG Oral Tablet (Lipitor)Indicatio ns:Heart failure, systolic, due to idiopathic cardiomyopathy (HCC),S/P aortic valve replacement,HTN, goal below 140/80,Dyslipidemi a, goal LDL below 70 Take 1 tablet by mouth daily to prevent heart attack/stroke, protect kidney, and cholesterol 90 Tablet 06/14/20 24 024 Discontinued(Re fill) Clopidogrel Bisulfate 75 MG Oral Tablet (pLAVix) Take 1 Tablet by mouth in the morning. 90 Tablet 06/14/20 24 024 Discontinued(Re fill) Levothyroxine Sodium 75 MCG Oral Tablet (Levoxyl)Indicatio ns:Hypothyroidism TAKE 1 TAB BY MOUTH DAILY FIRST THING IN AM, AT LEAST 30 MIN PRIOR TO BREAKFAST OR OTHER MEDICATIONS 90 Tablet 06/14/20 24 024 Discontinued(Re fill) Meclizine HCl 25 MG Oral Tablet (Antivert)Indicati ons:Muscle tension headache Take 2 Tablets by mouth 2 times a day. 360 Tablet 06/14/20 24 024 Discontinued(Re fill) Ozempic (2 MG/DOSE) 8 MG/3ML Subcutaneous Solution Pen-injector (Semaglutide (2 MG/DOSE))Indicatio ns:weekly on fridays Inject 2 mg under the skin once a week. 9 mL 1 06/14/20 24 024 Discontinued(Re fill) Gabapentin 300 MG Oral Capsule (Neurontin) Take 1 Capsule by mouth in the morning and 1 Capsule at noon and 1 Capsule before bedtime. 90 Capsule 2 06/14/20 24 024 Discontinued(Re fill) documented as of this encounter (statuses as of 07/14/2024) Active Problems Problem Noted Date Diagnosed Date [...] as of this encounter (statuses as of 07/14/2024) Resolved Problems Problem Noted Date Diagnosed Date [...] 12/21/2016 Diabetes mellitus 01/05/2014 12/21/2016 LEYVA RESEARCH OTHER*[id number] 01/05/2014 12/21/2016 Axillary pain 11/03/2013 12/21/2016 Obesity, [...] cath 09/201008/26/2011 12/21/2016 FOLLOWING SURGERY, UNSPECIFI ED ([facility]SO 08/25/2011) 08/26/2011 12/21/2016 ADVANCE DIRECTIVE INFORMATION 04/17/2011 12/21/2016 Overview: Yes, Patient instructed to provide copy of advance directive for provider to review and to be scanned into Electronic Medical Record ADVANCE DIRECTIVE INFORMATION 03/01/2011 12/21/2016 Overview: Yes, Patient instructed to provide copy of advance directive for provider to review and to be scanned into Electronic Medical Record [facility] V710 Clinical Trial*[id number] 12/22/2010 04/14/2011 S/P aortic valve replacement 12/01/2010 08/26/2011 S/P AORTIC VALVE REPLACEMENT - #25 pericardial Mc valve 11/01/2010 06/28/2018 Overview: Aortic valve replacement with #25 pericardial Mc valve, model [id number], serial number [id number] (Dr. Walker) [facility] V710 Clinical Trial*[id number] 10/18/2010 11/21/2010 Type 2 diabetes mellitus wit [...] as of this encounter (statuses as of 07/14/2024) Immunizations Name Administration Dates Next Due COVID-19 mRNA, LNP-s, No Pre serve, 2-Dose Series (Moderna) 10/25/2021,02/16/2021,01/18/2021 HEP A - Hepatitis A (Adult > 18 yrs) 06/07/2018, 12/05/2017 Hepatitis B, 20+ yrs 06/07/2018,01/08/20 18,12/05/2017,06/15,10/27/2013,09/12/2013 PPD 10/26/2019,10/17/2019 Pneumococcal Conjugate Vacci ne, 20-valent ([id number]) 06/22/2023 Pneumococcal Polysaccharide PPV23 (Pneumovax) 01/02/2008 Seasonal [...] encounter Miscellaneous Notes * Telephone Encounter - Britta Elias PHARM Tech - 07/14/2024 11:10 AM EDT Pt calling to request Gabapentin 300 MG Oral Capsule . Informed pt that RX is available at their pharmacy. Pt verbalized understanding and stated they will check with their pharmacy regarding this medication. Thank you, Britta Eliasprinting machine operator Keeper Helper II [facility] ([facility]) 07/14/2024, 11:10 AM * Addendum Note - Petar Pelayo RPh - 06/16/2024 10:55 AM EDTAddended by: PETAR PELAYO on: 06/16/2024 10:55 AM Modules accepted: Orders * Telephone Encounter - Petar Pelayo RPh - 06/16/2024 10:55 AM EDT Rerouted Thanks, Petar Pelayo PharmD Clinical Pharmacist [facility] ([facility]) [phone] 06/16/2024 10:55 AM * Telephone Encounter - Ariana Foster CPhT - 06/16/2024 10:50 AM EDT Please reroute Rx to [facility] [place] [address] [place]. Signed Prescriptions: Disp Refills Atorvastatin Calcium 40 MG Oral Tablet (Li*90 Tab*0 Sig: Take 1 tablet by mouth daily to prevent heart attack/stroke, protect kidney, and cholesterol Authorizing Provider: DEON RAUSCH Ordering User: PAUL LOPZE Clopidogrel Bisulfate 75 MG Oral Tablet (p*90 Tab*0 Sig: Take 1 Tablet by mouth in the morning. Authorizing Provider: DEON RAUSCH Ordering User: PAUL LOPEZ Levothyroxine Sodium 75 MCG Oral Tablet (L*90 Tab*0 Sig: TAKE 1 TAB BY MOUTH DAILY FIRST THING IN AM, AT LEAST 30 MIN PRIOR TO BREAKFAST OR OTHER MEDICATIONS Authorizing Provider: DEON RAUSCH Ordering User: PAUL LOPEZ Meclizine HCl 25 MG Oral Tablet (Antivert) 360 Ta*0 Sig: Take 2 Tablets by mouth 2 times a day. Authorizing Provider: DEON RAUSCH Ordering User: PAUL LOPEZ Ozempic (2 MG/DOSE) 8 MG/3ML Subcutaneous *9 mL 1 Sig: Inject 2 mg under the skin once a week. Authorizing Provider: DEON RAUSCH Ordering User: PAUL LOPEZ Gabapentin 300 MG Oral Capsule (Neurontin) 90 Cap*2 Sig: Take 1 Capsule by mouth in the morning and 1 Capsule at noon and 1 Capsule before bedtime. Authorizing Provider: DEON RAUSCH Ordering User: PAUL LOPEZ Last Visit: 06/05/2024 (in office), 09/12/2023 (telemedicine) 06/23/2024 If no future appointments scheduled, and last appointment is greater than a year ago, please schedule patient for a follow-up appointment Last date the medication was ordered: 06/14/24 Patient Phone Numbers [place] [phone] Labs: Lab Results Component Value Date/Time CREAT [...] 12/09/2019 01:49 PM * Telephone Encounter - Paul Lopez [facility] - 06/14/2024 10:06 AM EDTSigned Prescriptions: Disp Refills Atorvastatin Calcium 40 MG Oral Tablet (Li*90 Tab*0 Sig: Take 1 tablet by mouth daily to prevent heart attack/stroke, protect kidney, and cholesterolAuthorizing Provider: DEON RAUSCH User: PAUL LOPEZ Clopidogrel Bisulfate 75 MG Oral Tablet (p*90 Tab*0 Sig: Take 1 Tablet by mouth in the morning.Authorizing Provider: DEON RAUSCH User: PAUL LOPEZ Levothyroxine Sodium 75 MCG Oral Tablet (L*90 Tab*0 Sig: TAKE 1TAB BY MOUTH DAILY FIRST THING IN AM, AT LEAST 30 MIN PRIOR TO BREAKFAST OR OTHER MEDICATIONSAuthorizing Provider: DEON RAUSCH User: PAUL LOPEZ Meclizine HCl 25 MG Oral Tablet (Antivert) 360 Ta*0 Sig: Take 2 Tablets by mouth 2 times a day.Authorizing Provider: DEON RAUSCH User:PAUL LOPEZ Ozempic (2 MG/DOSE) 8 MG/3ML Subcutaneous *9 mL 1 Sig: Inject 2 mg under the skin once a week.Authorizing Provider: DEON RAUSCH User: PAUL LOPEZ Gabapentin 300 MG Oral Capsule (Neurontin) 90 Cap*2 Sig: Take 1 Capsule by mouth in the morning and 1 Capsuleat noon and 1 Capsule before bedtime.Authorizing Provider: DEON RAUSCH User: PAUL LOPEZ * Telephone Encounter - Paul Lopez RPh - 06/14/2024 10:03 AM EDT Rerouted remaining refills to new pharmacy as requested. PC to [facility] to cancel remaining refills on gabapentin rx. Thank you, Paul Lopez, ChristelleD Clinical Pharmacist [facility] ([facility]) 06/14/24 10:03 AM [phone] * Telephone Encounter - Elisa Lombardi PHARM Tech - 06/13/2024 9:13 AM EDT Tried to contact pt to confirm pharmacy but pt didn't answer. Please reroute [place] [facility]. Pending Prescriptions: Disp Refills Atorvastatin Calcium 40 MG Oral Tablet (L*90 Tab*0 Sig: Take 1 tablet by mouth daily to prevent heart attack/stroke, protect kidney, and cholesterol Clopidogrel Bisulfate 75 MG Oral Tablet (*90 Tab*0 Sig: Take 1 Tablet by mouth in the morning. Gabapentin 300 MG Oral Capsule (Neurontin)90 Cap*2 Sig: Take 1 Capsule by mouth in the morning and 1 Capsule at noon and 1 Capsule before bedtime. Levothyroxine Sodium 75 MCG Oral Tablet (*90 Tab*0 Sig: TAKE 1 TAB BY MOUTH DAILY FIRST THING IN AM, AT LEAST 30 MIN PRIOR TO BREAKFAST OR OTHER MEDICATIONS Meclizine HCl 25 MG Oral Tablet (Antivert)360 Ta*0 Sig: Take 2 Tablets by mouth 2 times a day. Ozempic (2 MG/DOSE) 8 MG/3ML Subcutaneous*9 mL 0 Sig: Inject 2 mg under the skin once a week. Last Visit: 06/05/2024 (in office), 09/12/2023 (telemedicine) 06/23/2024 If no future appointments scheduled, and last appointment is greater than a year ago, please schedule patient for a follow-up appointment Last date the medication was ordered: 02/04/2024,01/10/2024,01/09/2024 Patient Phone Numbers Labs: Lab Results Component [...] 07/15/2024 11:30 AM EDT Office Visit Pharmacy, [facility] [place] [place] [address] [place] [address] Pharmacist1, [facility] [address] [facility] [place] [address] 07/16/2024 2:30 PM EDT Hospital Encounter ENDO [facility], Endoscopy Room [facility] [address] [place] [phone] Rajinder Wheeler MD [address] [place] [address] 07/16/2024 2:30 PM EDT - 07/16/2024 3:00 PM EDT Surgery ENDO [facility], Endoscopy Room [facility] [address] [place] [phone] Rajinder Wheeler MD [address] [place] [address] COLONOSCOPY FLEXIBLE PROXIMAL DIAGNOSTIC 07/21/2024 2:00 PM EDT Scheduled Telephone [facility], [facility] [address] [facility] [place] [address] Lakesha King, ROBERT [address] [facility] [place] [address] 07/31/2024 11:15 AM EST Office Visit Ophthalmology, [facility] [address] [place] [address] Ramsey Burnett, DO [address] [facility] [place] [address] 08/07/2024 2:30 PM EST Home Visit [facility], [facility] [address] [place] [address] Zurdo Christina, RN [address] [place] [address] 08/12/2024 9:20 AM EST Office Visit Family Practice [facility] [address] [place] [address] Deon Rausch MD [address] [place] [address] 08/26/2024 9:00 AM EST Office Visit Pharmacy, [facility] [address] [facility] [place] [address] Pharmacist1, [facility] [address] [facility] [place] [address] 11/03/2024 11:00 AM EST Office Visit Sleep Disorders Ctr [facility] [address] [place] [phone] Christina Birch DO [address] [place] [address] 11/04/2024 9:30 AM EST Office Visit Gastroenterology, [facility] [address] [place] [address] Tia Taylor CRNP [address] [place] [address] Scheduled Procedures Name Priority Associated Diagnoses Date/Ti [...] 10/25/2021, 02/16/2021, 01/18/2021 CKD PHOS USE SMARTSET 72836 06/18/202405/26, 06/16/2023, 06/15/2023, Additional history exists HbA1c 08/01/2024 01/30/2024, 08/25, 07/31/2023, Additional history exists Diabetic Eye Exam 09/13/2024 09/13/2023, , 09/13/2023, Additional history exists B-12 09/18/2024 09/18/2023, 08/24, 2020, Additional history exists GFR 11/01/2024 05/01/2024, 12/23, 10/15/2023, Additional history exists Albumin/Creatinine Ratio 01/07/2025 024, 03/09/2023, 12/22/2022, Additional history exists CKD HGB USE SMARTSET 86748 01/07/202501/07, 01/08/2024, 10/15/2023, Additional history exists TSH [...] this encounter Medical Devices Implanted Type Area Astronomy Department Chair Device Identifier Shelf Expiration Date Model / Serial / Lot Cath Roselia Single Lumen - [id number] Implanted:Qty : 1 on 03/12/2008 at OR [facility] Left: Chest [facility] *DO NOT USE* 07/25/2012 21-4053-24 / / [id number] Sut Steel 6 M654g - [id number] Implanted:Qty : 1 on 11/01/2010 at OR [facility] N/A: Chest DO NOT USE M654G / / Sut Steel 6 M654g - [id number] Implanted:Qty : 1 on 11/01/2010 at OR [facility] N/A: Chest DO NOT USE M654G / / Valve Tarsha Aortic [id number] - [id number] Implanted:Qty : 1 on 11/01/2010 at OR [facility] N/A: Heart [employer] 05/20/2012 [id number] / / [id number] Description:[email or web address] Mesh Soft 93d69io - [id number] Implanted:Qty : 1 on 10/10/2019 by Gigi Hendrickson MD [place] [facility] [place]/A: Abdomen CR BARD : DAVOL [id number] 05/21/2024 [id number] / / [id number] Lens 22.5 Sn60wf - [id number] - [id number] Implanted:Qty : 1 on 09/15/2020 by Renaldo Cook, Cece Acosta MD at OR [facility] Right: Eye IVA : SURGICAL [id number] 05/13/2025 SN60 WF.225 / [id number] / [id number] Lens 21.5 Sn60wf - [id number] - [id number] Implanted:Qty : 1 on 12/19/2023 by Ramsey Burnett DO at OR [facility] Left: Eye IVA : SURGICAL 12/03/2024 SN60WF.2 15 / [id number] / documented as of this encounter Visit Diagnoses Diagnosis Heart failure, systolic, due to idiopathic cardiomyopathy (HCC) Unspecified systolic heart failure S/P AORTIC VALVE REPLACEMENT - #25 pericardial Mc valve Heart valve replaced by other means HTN, goal below 140/80 Unspecified essential hypertension Dyslipidemia, goal LDL below 70 Other and unspecified hyperlipidemia Hypothyroidism Unspecified hypothyroidism Muscle tension headache Tension headache Type 2 diabetes mellitus with hemoglobin A1c goal of less than 7.0% (HCC) Type 2 diabetes mellitus with diabetic mononeuropathy, with long-term current use of insulin ([facility]) Type 2 diabetes mellitus with both eyes affected by mild nonproliferative retinopathy and macular edema, with long-term current use of insulin (HCC) Type 2 diabetes mellitus with stage 3a chronic kidney disease, with long-term current use of insulin (HCC) Pancolitis (HCC) [facility] ulcerative (chronic) colitis documented in this encounter [...] statute hierarchy) Jovita Yamile Adult Child Health Sustainable Communities Designer resentative (appointed verbally by patient or by statute hierarchy) [email or web address] Care Teams Cruller Maker Machine Relationship Specialty Start Date End Date Deon Rausch MD [address] [place] [address] PCP - General Family Medicine 02/12/20 documented as of this encounter
--- OUTSIDE RECORDS SUMMARY | 2024-10-02 03:25 | External Medical Summary | Summary of Care ---
Author Name Unknown Organization [facility] Address [address] [place] [address] Phone [phone] Care Team Providers Care State Director Name Role Phone Gregory Rausch MD Primary Care Provider [phone] Encounter Details Date Type Department Care Team (Late st Contact Info) Description 07/10/2024 10:00 AM EDT [facility] [address] [facility] [place] [address] Zurdo Christina, RN [address] [facility] [place] [address] Allergies Active Allergy Reactions Criticality Noted Date Comments Adhesive Tape 07/02/2017 Can tolerate band-aids Glycerin Other (Please comment) 03/12/2008 Topical agents with glycein-burning & itching Lactose 12/09/2014 Dairy - gas Lisinopril Cough 01/21/2010 Monosodium Glutamate Edema Other 03/12/2008 Hands and feet Penicillins Rash 11/14/2007 documented as of this encounter (statuses as of 07/10/2024) Medications Medication Sig Dispensed Refills Start Date [...] Capsules by mouth in the morning. Active QuandooTouch Verio In Vitro Strip (Glucose Blood) Use [...] Indications: weekly on fridays, Reported on 07/09/2024 Yeaxndaotm-Qovfewi-C affeine 50-325-40 MG Oral Capsule (Fiorinal)Indication s:Acute [...] morning. 18 mL 3 06/20/2024 Active Klayesta 282591 UNIT/GM External Powder (Nystatin)Indication s:Candidal intertrigo APPLY [...] as of this encounter (statuses as of 07/10/2024) Active Problems Problem Noted Date Diagnosed Date [...] eye 09/28/2020 Coronary artery disease invo lving [place] coronary artery of [place] heart without angina pectoris 12/16/2019 Last Assessment [...] as of this encounter (statuses as of 07/10/2024) Resolved Problems Problem Noted Date Diagnosed Date [...] 12/21/2016 Diabetes mellitus 01/05/2014 12/21/2016 LEYVA RESEARCH OTHER*[id number] 01/05/2014 12/21/2016 Axillary pain 11/03/2013 12/21/2016 Obesity, [...] cath 09/201008/26/2011 12/21/2016 FOLLOWING SURGERY, UNSPECIFI ED ([facility] 08/25/2011) 08/26/2011 12/21/2016 ADVANCE [...] Medical Record [facility] V710 Clinical Trial*[id number] 12/22/2010 04/14/2011 S/P aortic valve replacement 12/01/2010 08/26/2011 S/P AORTIC VALVE REPLACEMENT - #25 pericardial Mc valve 11/01/2010 06/28/2018 Overview: Aortic valve replacement with #25 pericardial Mc valve, model 2800TFX, serial number [id number] (Dr. Walker) [facility] V710 Clinical Trial*[id number] 10/18/2010 11/21/2010 Type 2 diabetes mellitus wit [...] as of this encounter (statuses as of 07/10/2024) Immunizations Name Administration Dates Next Due COVID-19 mRNA, LNP-s, No Pre serve, 2-Dose Series (Moderna) 10/25/2021,02/16/2021,01/18/2021 HEP A - Hepatitis A (Adult > 18 yrs) 06/07/2018, 12/05/2017 Hepatitis B, 20+ yrs 06/07/2018,01/08/20 18,12/05/2017,06/15,10/27/2013,09/12/2013 PPD 10/26/2019,10/17/2019 Pneumococcal Conjugate Vacci ne, 20-valent (Vnrldbz28) 06/22/2023 Pneumococcal Polysaccharide PPV23 (Pneumovax) 01/02/2008 Seasonal [...] Sign Reading Time Taken Comments Blood Pressure 144/82 07/10/2024 12:18 PM EDT Pulse 90 07/10/2024 12:18 PM EDT Temperature 36.6 C (97.9 F) 07/10/2024 12:18 PM E DT Respiratory Rate 16 07/10/2024 12:18 PM EDT Oxygen Saturation 97% 07/10/2024 12:18 PM EDT Inhaled Oxygen Concentration - - [...] Progress Notes * Zurdo Christina, PRABHA - 07/10/2024 11:49 AM EDT Current Concerns: Situation: Pt seen today by [facility] 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, HTN, DANYELLE not on CPAP, CKD III, history of breast CA, and colon CA Assessment: Pt reports she has 32 hours paid CG per week through [employer] Pt previous CG relocated her service area and is no longer available Per pt she was supposed to have a new CG with [employer] instructional assistant, starting Sunday and the CG no showedTues, Sun and and then pt was informed that the CG has decided to decline the position Pt believes her managed services consultant is Cindi and communicates with daughter Jovita regarding changes in service Pt reports that she is "doing ok" without CG currently but is relying on her son to take on many ofthe tasks that CG assisted with such as transportation, grocery shopping, etc Pt appears to be doing well, talkative, and reports she had just finished making egg plant parmesan Pt is currently managing her own meds and filling own pill box Med rec completed with pt, pt able to demonstrate how and what medications she takes Pt was having 8-12 liquid BM with adominal cramping two days ago Pt reports at that time her BS were running 300 and above, with highest in 500s Pt was also drinking 5+ regular Gatorades Pt had also taken her Ozempic injection the day prior Pt does have hx of C Diff however reports this was "not like" C Diff Today pt denies having liquid BM Pt reports her BM today is formed, has had 3 BM Denies abdominal cramping, pain Pt BS at time of visit is 217 Pt continues to fingerstick Per pt she did receive the sensors she had been waiting on for Dexcom G6 and is waiting until 07/15MTM appt to get education on proper use Pt reports that she would like to have someone present with her at the education but does not currently have anyone that is available to go along Pt states she is going to ask her son if he is available to go to appt Pt has colonoscopy on 07/16 Currently holding Plavix x 7 days Physical Exam: Physical Exam Cardiovascular: Rate and Rhythm: Normal rate and regular rhythm. Pulmonary: Effort: Pulmonary effort is normal. Breath sounds: Normal breath sounds. Abdominal: General: Bowel sounds are normal. Palpations: Abdomen is soft. Musculoskeletal: General: Normal range of motion. Skin: General: Skin is warm and dry. Capillary Refill: Capillary refill takes 2 to 3 seconds. Neurological: Mental Status: She is alert and oriented to person, place, and time. Psychiatric: Mood and Affect: Mood normal. Behavior: Behavior normal. Review of Systems: Review of Systems Constitutional: Negative. Negative for chills and fever. HENT: Negative. Respiratory: Negative for cough and shortness of breath. Cardiovascular: Negative. Negative for leg swelling. Gastrointestinal: Negative. Negative for abdominal distention, abdominal pain and diarrhea. Genitourinary: Negative. Negative for dysuria and flank pain. Musculoskeletal: Positive for gait problem. Skin: Negative. Neurological: Negative for syncope, light-headedness and headaches. Psychiatric/Behavioral: Negative. Care Plan Goal Progress: Patient will report and or demonstrate minimal pain. (Not Progressing) Start: 06/11/24 Expected End: 07/18/24 Patient will achieve & maintain fluid & electrolyte balance. (Not Progressing) Start: 06/11/24 Expected End: 07/18/24 Patient's bowels habits will be maintained. (Not Progressing) Start: 06/11/24 Expected End: 07/18/24 Orders Placed: No orders of the defined types were placed in this encounter. Care Gaps: Care Gaps Care gaps closed this contact:: Education;Plan of Care (POC) (07/10/24 1247) Type of education: Clinical/disease (07/10/24 1247) Type of plan of care (POC) care gap: Education and review of exacerbation plan (07/10/24 124) documented in this encounter Plan of Treatment Upcoming Encounters Date Type Department Care Team (Late st Contact Info) Description 07/15/2024 11:30 AM EDT [facility] [place] [address] [facility] [place] [address] Pharmacist1, [facility] [address] [place] [address] 07/16/2024 2:30 PM EDT Hospital Encounter ENDO [facility], Endoscopy Room [facility] [address] [place] [phone] Rajinder Wheeler MD [address] [place] [address] 07/16/2024 2:30 PM EDT - 07/16/2024 3:00 PM EDT Surgery ENDO [facility], Endoscopy Room [facility] [address] [place] [phone] Rajinder Wheeler MD [address] [place] [address] COLONOSCOPY FLEXIBLE PROXIMAL DIAGNOSTIC 07/21/2024 2:00 PM EDT Scheduled Telephone [facility], [facility] [address] [facility] [place] [address] Lakesha King, RDN [address] [place] [address] 07/31/2024 11:15 AM EST Office Visit Ophthalmology, [facility] [address] [place] [address] Ramsey Burnett, DO [address] [place] [address] 08/07/2024 2:30 PM EST [facility], [facility] [address] [place] [address] Zurdo Christina, RN [address] [place] [address] 08/12/2024 9:20 AM EST Office Visit Family Practice [facility] [address] [place] [address] Gregory Rausch MD [address] [place] [address] 08/26/2024 9:00 AM EST [facility] [address] [place] [place] [address] Pharmacist1, [facility] [address] [place] [address] 11/03/2024 11:00 AM EST Office Visit Sleep Disorders Ctr [facility] [address] [place] [phone] Christina Birch DO [address] [place] [address] 11/04/2024 9:30 AM EST Office Visit Gastroenterology, [facility] [address] [place] [address] Tia Taylor CRNP [address] [place] [address] Scheduled Procedures Name Priority Associated Diagnoses Date/Ti [...] 10/25/2021, 02/16/2021, 01/18/2021 CKD PHOS USE SMARTSET 08714 06/18/202405/26, 06/16/2023, 06/15/2023, Additional history exists HbA1c 08/01/2024 01/30/2024, 08/25, 07/31/2023, Additional history exists Diabetic Eye Exam 09/13/2024 09/13/2023, , 09/13/2023, Additional history exists B-12 09/18/2024 09/18/2023, 08/24, 2020, Additional history exists GFR 11/01/2024 05/01/2024, 12/23, 10/15/2023, Additional history exists Albumin/Creatinine Ratio 01/07/2025 024, 03/09/2023, 12/22/2022, Additional history exists CKD HGB USE SMARTSET 39194 01/07/202501/07, 01/08/2024, 10/15/2023, Additional history exists TSH [...] encounter Medical Devices Implanted Type Area Director Product Development Device Identifier Shelf Expiration Date Model / Serial / Lot Cath Roselia Single Lumen - [id number] Implanted:Qty : 1 on 03/12/2008 at OR [facility] Left: Chest [facility] *DO NOT USE* 07/25/2012 21-4053-24 / / [id number] Sut Steel 6 M654g - [id number] Implanted:Qty : 1 on 11/01/2010 at OR [facility] N/A: Chest DO NOT USE M654G / / Sut Steel 6 M654g - [id number] Implanted:Qty : 1 on 11/01/2010 at OR [facility] N/A: Chest DO NOT USE M654G / / Valve Tarsha Aortic [id number] - [id number] Implanted:Qty : 1 on 11/01/2010 at OR [facility] N/A: Heart [employer]EL 05/20/2012 2800TFX-25 / / [id number] Description:[email or web address] Mesh Soft 57l47jq - [id number] Implanted:Qty : 1 on 10/10/2019 by Gigi Hendrickson MD [place] [facility] [place]/A: Abdomen CR BARD : DAVOL [id number] 05/21/2024 [id number] / / [id number] Lens 22.5 Sn60wf - [id number] - [id number] Implanted:Qty : 1 on 09/15/2020 by Renaldo Cook, Cece Acosta MD at OR [facility] Right: Eye IVA : SURGICAL [id number] 05/13/2025 SN60 WF.225 / [id number] / [id number] Lens 21.5 Sn60wf - [id number] - [id number] Implanted:Qty : 1 on 12/19/2023 by Ramsey Burnett DO at OR [facility] Left: Eye IVA : SURGICAL 12/03/2024 SN60WF.2 15 / [id number] / documented as of this encounter [...] statute hierarchy) Jovita [facility] Adult Child Health Boot Liner Maker resentative (appointed verbally by patient or by statute hierarchy) [email or web address] Care Teams State Director Relationship Specialty Start Date End Date Gregory Rausch MD [address] [place] [address] PCP - General Family Medicine 02/12/20 documented as of this encounter
--- OUTSIDE RECORDS SUMMARY | 2024-10-02 03:25 | External Medical Summary | Summary of Care ---
Author Name Unknown Organization [facility] Address [address] [place] [address] Phone [phone] Care Team Providers Care Preprint Analyst Name Role Phone Gregory Rausch MD Primary Care Provider +[phone] Reason for Visit * Reason Onset Date Comments Medication Question 07/07/2024 Encounter Details Date Type Department Care Team (Late st Contact Info) Description 07/07/2024 Telephone Cardiology, [facility] [address] [place] [address] Roberto Carlos Muniz, [address] [facility] [address] Medication Question Allergies Active Allergy Reactions [...] Indications: weekly on fridays, Reported on 07/09/2024 Fxqlqrkunb-Giuwhzb-M affeine 50-325-40 MG Oral Capsule (Fiorinal)Indication s:Acute [...] morning. 18 mL 3 06/20/2024 Active Klayesta 784970 UNIT/GM External Powder (Nystatin)Indication s:Candidal intertrigo APPLY [...] eye 09/28/2020 Coronary artery disease invo lving [place] coronary artery of [place] heart without angina pectoris 12/16/2019 Last [...] 12/21/2016 Diabetes mellitus 01/05/2014 12/21/2016 LEYVA RESEARCH OTHER*[id number] 01/05/2014 12/21/2016 Axillary pain 11/03/2013 12/21/2016 Obesity, [...] to be scanned into Electronic Medical Record [facility] V710 Clinical Trial*[id number] 12/22/2010 04/14/2011 S/P aortic valve replacement 12/01/2010 08/26/2011 S/P AORTIC VALVE REPLACEMENT - #25 pericardial Mc valve 11/01/2010 06/28/2018 Overview: Aortic valve replacement with #25 pericardial Mc valve, model 2800TFX, serial number [id number] (Dr. Walker) [facility] V710 Clinical Trial*[id number] 10/18/2010 11/21/2010 Type 2 diabetes mellitus wit [...] PPD 10/26/2019,10/17/2019 Pneumococcal Conjugate Vacci ne, 20-valent (Rvbkjcb23) 06/22/2023 Pneumococcal Polysaccharide PPV23 (Pneumovax) 01/02/2008 Seasonal [...] 07/15/2024 11:30 AM EDT Office Visit Pharmacy, [facility] [address] [facility] [place] [address] Pharmacist1, [facility] [address] [facility] [place] [address] 07/16/2024 2:30 PM EDT Hospital Encounter ENDO [facility], Endoscopy Room [facility] [address] [place] [phone] Rajinder Wheeler MD [address] [place] [address] 07/16/2024 2:30 PM EDT - 07/16/2024 3:00 PM EDT Surgery ENDO [facility], Endoscopy Room [facility] [address] [place] [phone] Rajinder Wheeler MD [address] [place] [address] COLONOSCOPY FLEXIBLE PROXIMAL DIAGNOSTIC 07/21/2024 2:00 PM EDT Scheduled Telephone [facility] [place] [address] [place] [address] Lakesha King, RDN [address] [place] [address] 07/31/2024 11:15 AM EST Office Visit Ophthalmology, [facility] [address] [facility] [place] [address] Ramsey Burnett, DO [address] [place] [address] 08/07/2024 2:30 PM EST Home Visit [facility], [facility] [address] [facility] [place] [address] Zurdo Christina, PRABHA [address] [facility] [place] [address] 08/12/2024 9:20 AM EST Office Visit Family Practice [facility] [address] [facility] [place] [address] Gregory Rausch MD [address] [facility] [place] [address] 08/26/2024 9:00 AM EST Office Visit Pharmacy, [facility] [address] [facility] [place] [address] Pharmacist1, [facility] [address] [facility] [place] [address] 11/03/2024 11:00 AM EST Office Visit Sleep Disorders Ctr [facility] [address] [facility] [place] [phone] Christina Birch, DO [address] [facility] [place] [address] 11/04/2024 9:30 AM EST Office Visit Gastroenterology, [facility] [address] [facility] [place] [address] Tia Taylor CRNP [address] [facility] [place] [address] Scheduled Procedures Name Priority Associated Diagnoses Date/Ti [...] 10/25/2021, 02/16/2021, 01/18/2021 CKD PHOS USE SMARTSET 74677 06/18/202405/26, 06/16/2023, 06/15/2023, Additional history exists HbA1c 08/01/2024 01/30/2024, 08/25, 07/31/2023, Additional history exists Diabetic Eye Exam 09/13/2024 09/13/2023, , 09/13/2023, Additional history exists B-12 09/18/2024 09/18/2023, 08/24, 2020, Additional history exists GFR 11/01/2024 05/01/2024, 12/23, 10/15/2023, Additional history exists Albumin/Creatinine Ratio 01/07/2025 024, 03/09/2023, 12/22/2022, Additional history exists CKD HGB USE SMARTSET 20779 01/07/202501/07, 01/08/2024, 10/15/2023, Additional history exists TSH [...] this encounter Medical Devices Implanted Type Area Media Sales Executive Device Identifier Shelf Expiration Date Model / Serial / Lot Cath Roselia Single Lumen - [id number] Implanted:Qty : 1 on 03/12/2008 at [facility] Left: Chest [facility] *DO NOT USE* 07/25/2012 21-4053-24 / / [id number] Sut Steel 6 M654g - [id number] Implanted:Qty : 1 on 11/01/2010 at OR [facility] N/A: Chest DO NOT USE M654G / / Sut Steel 6 M654g - [id number] Implanted:Qty : 1 on 11/01/2010 at OR [facility] N/A: Chest DO NOT USE M654G / / Valve Tarsha Aortic [id number] - [id number] Implanted:Qty : 1 on 11/01/2010 at OR [facility] N/A: Heart [employer] 05/20/2012 2800TFX-25 / / [id number] Description:[email or web address] Mesh Soft 17h89ct - [id number] Implanted:Qty : 1 on 10/10/2019 by Gigi Hendrickson MD at [place] [facility] [place] N/A: Abdomen CR BARD : DAVOL [id number] 05/21/2024 [id number] / / [id number] Lens 22.5 Sn60wf - [id number] - [id number] Implanted:Qty : 1 on 09/15/2020 by Cece Roland MD at OR [facility] Right: Eye IVA : SURGICAL [id number] 05/13/2025 SN60 WF.225 / [id number] / [id number] Lens 21.5 Sn60wf - [id number] - [id number] Implanted:Qty : 1 on 12/19/2023 by Ramsey Burnett DO at OR [facility] Left: Eye IVA : SURGICAL 12/03/2024 SN60WF.2 15 / [id number] / documented as of this encounter [...] by patient or by statute hierarchy) Jovita [facility] Child [facility] Terrazzo Installer resentative (appointed verbally by patient or by statute hierarchy) Care Teams Preprint Analyst Relationship Specialty Start Date End Date Gregory Rausch MD [address] [facility] [place] [address] PCP - General Family Medicine 02/12/20 documented as of this encounter
--- OUTSIDE RECORDS SUMMARY | 2024-10-02 03:25 | External Medical Summary | Summary of Care ---
Author Name Unknown Organization [facility] Address [address] [place] [address] Phone [phone] Care Team Providers Care Tile Layer Drainage Name Role Phone Gregory Rausch MD Primary Care Provider [phone] Reason for Visit * Reason Onset Date Comments Follow Up 06/27/2024 Encounter Details Date Type Department Care Team (Late st Contact Info) Description 06/27/2024 Telephone [facility] [address] [place] [address] Fidelina Baumann MD [address] [place] [address] Follow Up Allergies Active Allergy Reactions Criticality Noted Date [...] type 2, not at goal ([facility]) 3 every 15 minutes until glucose is [...] Capsules by mouth in the morning. Active SkyBitzTouch Verio In Vitro Strip (Glucose Blood) Use up to 4 times a day E11.9 100 Strip 11 01/22/2024 Active Potassium Chloride Shannon [facility] 10 MEQ Oral Tablet Extended ReleaseIndications:A cute on chronic heart failure with preserved ejection fraction (HFpEF) ([facility]) Take 1 Tablet by mouth in the morning and 1 Tablet before bedtime. 180 Tablet 3 01/22/2024 Active BD Pen Needle Short U/F 31G X 8 MMIndications:Type 2 diabetes mellitus with hemoglobin A1c goal of less than 7.0% ([facility]),Type 2 diabetes mellitus with stage 3a chronic kidney disease, with long-term current use of insulin ([facility]) Use with insulin 4 times daily 400 [...] goal of less than 7.0% ([facility]) Use up to 50 units per day in Omnipod. 03/31/2024 Active Omnipod 5 G6 Intro (Gen 5) Kit Use as directed. Use to delivery insulin via insulin pump 1 Kit 5 04/10/2024 Active Loperamide HCl 2 MG Oral Capsule [...] a week. 9 mL 1 06/16/2024 Active Xgeosxkejk-Winfsfo-J affeine 50-325-40 MG Oral Capsule (Fiorinal)Indication s:Acute [...] goal of less than 7.0% ([facility]),Type 2 diabetes mellitus with stage 3a chronic kidney disease, with long-term current use of insulin ([facility]) Inject 36 Units under the skin in the morning. 18 mL 3 06/20/2024 Active Klayesta 395759 UNIT/GM External Powder (Nystatin)Indication s:Candidal intertrigo APPLY [...] 130/80,Chronic heart failure with preserved ejection fraction ([facility]),Palpitations,H ypomagnesemia One tablet by mouth daily in [...] eye 09/28/2020 Coronary artery disease invo lving [place] coronary artery of [place] heart without angina pectoris 12/16/2019 Last [...] 12/21/2016 Diabetes mellitus 01/05/2014 12/21/2016 LEYVA RESEARCH OTHER*[id number] 01/05/2014 12/21/2016 Axillary pain 11/03/2013 12/21/2016 Obesity, [...] ED ([facility] 08/25/2011) 08/26/2011 12/21/2016 ADVANCE DIRECTIVE [...] Medical Record [facility] V710 Clinical Trial*[id number] 12/22/2010 04/14/2011 S/P aortic valve replacement 12/01/2010 08/26/2011 S/P AORTIC VALVE REPLACEMENT - #25 pericardial Mc valve 11/01/2010 06/28/2018 Overview: Aortic valve replacement with #25 pericardial Mc valve, model 2800TFX, serial number [id number] (Dr. Walker) [facility] V710 Clinical Trial*[id number] 10/18/2010 11/21/2010 Type 2 diabetes mellitus wit [...] PPD 10/26/2019,10/17/2019 Pneumococcal Conjugate Vacci ne, 20-valent ([id number]) 06/22/2023 Pneumococcal Polysaccharide PPV23 (Pneumovax) 01/02/2008 Seasonal [...] Telephone Encounter - Ruth Moreno LPN - 06/27/2024 10:53 AM EDT MyG is sent to pt in follow up as in previous encounter no return call have been returned by ptLetter sent in follow up * Telephone Encounter - Ruth Moreno LPN - 06/27/2024 10:43 AM EDT Note from remote encounter copied Neph nurse pls call pt/ caregiver to discuss; last cc365 entry was 05/30 Recommend if unable to do daily for cc365 MTM that she continue w/ MTM w/ periodic 3 day logs; sametarget as [facility] CC365 FYI documented in this encounter Plan of Treatment Upcoming Encounters Date Type Department Care Team (Late st Contact Info) Description 07/15/2024 11:30 AM EDT Office Visit Pharmacy, [facility] [address] [place] [address] Pharmacist1, [facility] [address] [place] [address] 07/16/2024 2:30 PM EDT Hospital Encounter ENDO [facility], Endoscopy Room [facility] [address] [place] [address] Rajinder Wheeler MD [address] [place] [address] 07/16/2024 2:30 PM EDT - 07/16/2024 3:00 PM EDT Surgery ENDO [facility], Endoscopy Room [facility] [address] [place] [phone] Rajinder Wheeler MD [address] [place] [address] COLONOSCOPY FLEXIBLE PROXIMAL DIAGNOSTIC 07/21/2024 2:00 PM EDT Scheduled Telephone [facility], [facility] [address] [facility] [place] [address] Lakesha King, MITCHELLN [address] [facility] [place] [address] 07/31/2024 11:15 AM EST Office Visit Ophthalmology, [facility] [place] [address] Ramsey Burnett, DO [address] [facility] [place] [address] 08/07/2024 2:30 PM EST [facility] Visit [facility], [facility] [address] [facility] [place] [address] Zurdo Christina, RN [address] [place] [address] 08/12/2024 9:20 AM EST Office Visit Family Practice [facility] [address] [place] [address] Gregory Rausch MD [address] [place] [address] 08/26/2024 9:00 AM EST Office Visit Pharmacy, [facility] [address] [facility] [place] [address] Pharmacist1, [facility] [address] [place] [address] 11/03/2024 11:00 AM EST Office Visit Sleep Disorders Ctr [facility] [address] [place] [phone] Christina Birch DO [address] [place] [address] 11/04/2024 9:30 AM EST Office Visit Gastroenterology, [facility] [address] [place] [address] Tia Taylor CRNP [address] [place] [address] Scheduled Procedures Name Priority Associated Diagnoses Date/Ti [...] 10/25/2021, 02/16/2021, 01/18/2021 CKD PHOS USE SMARTSET 29488 06/18/202405/26, 06/16/2023, 06/15/2023, Additional history exists HbA1c 08/01/2024 01/30/2024, 08/25, 07/31/2023, Additional history exists Diabetic Eye Exam 09/13/2024 09/13/2023, , 09/13/2023, Additional history exists B-12 09/18/2024 09/18/2023, 08/24, 2020, Additional history exists GFR 11/01/2024 05/01/2024, 12/23, 10/15/2023, Additional history exists Albumin/Creatinine Ratio 01/07/2025 024, 03/09/2023, 12/22/2022, Additional history exists CKD HGB USE SMARTSET 41215 01/07/202501/07, 01/08/2024, 10/15/2023, Additional history exists TSH [...] this encounter Medical Devices Implanted Type Area Sample Dye Mixer Device Identifier Shelf Expiration Date Model / Serial / Lot Cath Roselia Single Lumen - [id number] Implanted:Qty : 1 on 03/12/2008 at OR [facility] Left: Chest [employer] *DO NOT USE* 07/25/2012 21-4053-24 / / [id number] Sut Steel 6 M654g - [id number] Implanted:Qty : 1 on 11/01/2010 at OR [facility] N/A: Chest DO NOT USE M654G / / Sut Steel 6 M654g - [id number] Implanted:Qty : 1 on 11/01/2010 at OR [facility] N/A: Chest DO NOT USE M654G / / Valve Tarsha Aortic [id number] - [id number] Implanted:Qty : 1 on 11/01/2010 at OR [facility] N/A: Heart [employer]EL 05/20/2012 2800TFX-25 / / [id number] Description:[email or web address] Mesh Soft 42q36fl - [id number] Implanted:Qty : 1 on 10/10/2019 by Gigi Hendrickson MD at OR [facility] N/A: Abdomen CR BARD : DAVOL [id number] 05/21/2024 [id number] / / [id number] Lens 22.5 Sn60wf - [id number] - [id number] Implanted:Qty : 1 on 09/15/2020 by Renaldo Cook, Cece Acosta MD at OR [facility] Right: Eye IVA : SURGICAL [id number] 05/13/2025 SN60 WF.225 / [id number] / [id number] Lens 21.5 Sn60wf - [id number] - [id number] Implanted:Qty : 1 on 12/19/2023 by Ramsey Burnett DO at OR [facility] Left: Eye IVA : SURGICAL 12/03/2024 SN60WF.2 15 / [id number] / documented as of this encounter [...] statute hierarchy) Jovita Ovalle Adult Child Health Applied Biology Professor resentative (appointed verbally by patient or by statute hierarchy) [email or web address] Care Teams Tile Layer Drainage Relationship Specialty Start Date End Date Gregory Rausch MD [address] [place] [address] PCP - General Family Medicine 02/12/20 documented as of this encounter
--- OUTSIDE RECORDS SUMMARY | 2024-10-02 03:26 | External Medical Summary | Summary of Care ---
Author Name Unknown Organization [facility] Address [address] [place] [address] Phone [phone] Care Team Providers Care Executive Director Name Role Phone Gregory Rausch MD Primary Care Provider [phone] Reason for Visit * Reason Onset Date Comments [facility]: Maintenance 07/09/2024 Encounter Details Date Type Department Care Team (Late st Contact Info) Description 07/09/2024 Telephone [facility], [facility] [place] [address] Zurdo Christina, PRABHA [address] [facility] [place] [address] [facility]: Maintenance Allergies Active Allergy [...] type 2, not at goal ([facility]) 3 every 15 minutes until glucose is > 100 mg/dL for hypoglycemia E11.9 100 Tab 3 07/06/2021 Active OneTouch Verio w/Device Kit Use up to 4 times a day E11.9 1 Kit 02/10/2022 Active PanasasTouch Delica Lancets 33G TEST 4 TIMES DAILY [...] with preserved ejection fraction (HFpEF) ([facility]) Take 1 Tablet by mouth in the morning and 1 Tablet before bedtime. 180 Tablet 3 01/22/2024 Active BD Pen Needle Short U/F 31G X 8 MMIndications:Type 2 diabetes mellitus with hemoglobin A1c goal of less than 7.0% ([facility]),Type 2 diabetes mellitus with stage 3a chronic kidney disease, with long-term current use of insulin ([facility]) Use with insulin 4 times [...] goal of less than 7.0% ([facility]) Use up to 50 units [...] a week. 9 mL 1 06/16/2024 Active Cdvsdiofgs-Ysgajvs-Y affeine 50-325-40 MG Oral Capsule (Fiorinal)Indication s:Acute [...] goal of less than 7.0% ([facility]),Type 2 diabetes mellitus with stage 3a chronic kidney disease, with long-term current use of insulin ([facility]) Inject 36 Units under the skin in the morning. 18 mL 3 06/20/2024 Active Klayesta 744295 UNIT/GM External Powder (Nystatin)Indication s:Candidal intertrigo APPLY [...] FOR 8 WKS 100 Capsule 07/08/2024 Active documented as of this encounter (statuses [...] eye 09/28/2020 Coronary artery disease invo lving [place] coronary artery of [place] heart without angina pectoris 12/16/2019 Last Assessment [...] 12/21/2016 Diabetes mellitus 01/05/2014 12/21/2016 LEYVA RESEARCH OTHER*[id number] 01/05/2014 12/21/2016 Axillary pain 11/03/2013 12/21/2016 Obesity, [...] SURGERY, UNSPECIFI ED ([facility] 08/25/2011) 08/26/2011 12/21/2016 ADVANCE DIRECTIVE INFORMATION 04/17/2011 12/21/2016 Overview: Yes, Patient instructed to provide copy of advance directive for provider to review and to be scanned into Electronic Medical Record ADVANCE DIRECTIVE INFORMATION 03/01/2011 12/21/2016 Overview: Yes, Patient instructed to provide copy of advance directive for provider to review and to be scanned into Electronic Medical Record [facility] V710 Clinical Trial*[id number] 12/22/2010 04/14/2011 S/P aortic valve replacement 12/01/2010 08/26/2011 S/P AORTIC VALVE REPLACEMENT - #25 pericardial Mc valve 11/01/2010 06/28/2018 Overview: Aortic valve replacement with #25 pericardial Mc valve, model 2800TFX, serial number [id number] (Dr. Walker) [facility] V710 Clinical Trial*[id number] 10/18/2010 11/21/2010 Type 2 diabetes mellitus wit [...] PPD 10/26/2019,10/17/2019 Pneumococcal Conjugate Vacci ne, 20-valent ([id number]) 06/22/2023 Pneumococcal Polysaccharide PPV23 (Pneumovax) 01/02/2008 Seasonal [...] encounter Miscellaneous Notes * Telephone Encounter - Zurdo Christina RN - 07/09/2024 8:34 AM EDT Please discharge the patient from [facility] ([facility] Device(s)/IVR to be discontinued: 07/09/24 due to non-compliance. Thank you. documented in this encounter Plan of Treatment Upcoming Encounters Date Type Department Care Team (Late st Contact Info) Description 07/15/2024 11:30 AM EDT Office Visit Pharmacy, [facility] [address] [place] [address] Pharmacist1, [facility] [address] [place] [address] 07/16/2024 2:30 PM EDT Hospital Encounter ENDO [facility], Endoscopy Room [facility] [address] [place] [phone] Rajinder Wheeler MD [address] [place] [address] 07/16/2024 2:30 PM EDT - 07/16/2024 3:00 PM EDT Surgery ENDO [facility], Endoscopy Room [facility] [address] [phone] Rajinder Wheeler MD [address] [place] [address] COLONOSCOPY FLEXIBLE PROXIMAL DIAGNOSTIC 07/21/2024 2:00 PM EDT Scheduled Telephone [facility], [facility] [address] [facility] [place] [address] Lakesha King, ROBERT [address] [place] [address] 07/31/2024 11:15 AM EST Office Visit Ophthalmology, Health system [address] [place] [address] Ramsey Burnett, DO [address] [place] [address] 08/12/2024 9:20 AM EST Office Visit Family Practice [facility] system [address] [place] [address] Gregory Rausch MD [address] [place] [address] 08/26/2024 9:00 AM EST Office Visit Pharmacy, [facility] [address] [facility] [place] [address] Pharmacist1, [facility] [address] [facility] [place] [address] 11/03/2024 11:00 AM EST Office Visit Sleep Disorders Ctr [facility] [address] [place] [phone] Christina Birch, [address] [place] [address] 11/04/2024 9:30 AM EST Office Visit Gastroenterology, Health system [address] [place] [address] Tia Taylor CRNP [address] [place] [address] Scheduled Procedures Name Priority Associated Diagnoses Date/Ti [...] 10/25/2021, 02/16/2021, 01/18/2021 CKD PHOS USE SMARTSET 73030 06/18/202405/26, 06/16/2023, 06/15/2023, Additional history exists HbA1c 08/01/2024 01/30/2024, 08/25, 07/31/2023, Additional history exists Diabetic Eye Exam 09/13/2024 09/13/2023, , 09/13/2023, Additional history exists B-12 09/18/2024 09/18/2023, 08/24, 2020, Additional history exists GFR 11/01/2024 05/01/2024, 12/23, 10/15/2023, Additional history exists Albumin/Creatinine Ratio 01/07/2025 024, 03/09/2023, 12/22/2022, Additional history exists CKD HGB USE SMARTSET 58349 01/07/202501/07, 01/08/2024, 10/15/2023, Additional history exists TSH [...] this encounter Medical Devices Implanted Type Area Engineering Research Manager Device Identifier Shelf Expiration Date Model / Serial / Lot Cath Roselia Single Lumen - [id number] Implanted:Qty : 1 on 03/12/2008 at OR [facility] Left: Chest [facility] *DO NOT USE* 07/25/2012 21-4053-24 / / [id number] Sut Steel 6 M654g - [id number] Implanted:Qty : 1 on 11/01/2010 at OR [facility] N/A: Chest DO NOT USE M654G / / Sut Steel 6 M654g - [id number] Implanted:Qty : 1 on 11/01/2010 at OR [facility] N/A: Chest DO NOT USE M654G / / Valve Tarsha Aortic [id number] - [id number] Implanted:Qty : 1 on 11/01/2010 at OR [facility] N/A: Heart [employer] 05/20/2012 2800TFX-25 / / [id number] Description:[email or web address] Mesh Soft 65m08xk - [id number] Implanted:Qty : 1 on 10/10/2019 by Gigi Hendrickson MD at OR [facility] N/A: Abdomen CR BARD : DAVOL [id number] 05/21/2024 [id number] / / [id number] Lens 22.5 Sn60wf - [id number] - [id number] Implanted:Qty : 1 on 09/15/2020 by Renaldo Cook, Cece Acosta MD at OR [facility] Right: Eye IVA : SURGICAL [id number] 05/13/2025 SN60 WF.225 / [id number] / [id number] Lens 21.5 Sn60wf - [id number] - [id number] Implanted:Qty : 1 on 12/19/2023 by Ramsey Burnett DO at OR [facility] Left: Eye IVA : SURGICAL 12/03/2024 SN60WF.2 15 / [id number] [id number] / documented as of this encounter Advance Directives * Full Code (Latest Code Status on File) Date Activated Date Inactivated Comments 12/19/2023 12:28 PM 12/19/2023 7:20 PM Question Answer Comments Discussion of Advance Direct brinaa occurred with: Not Discussed due to patient's [...] statute hierarchy) Jovita Ovalle Adult Child Health Small Arms Repairer resentative (appointed verbally by patient or by statute hierarchy) [email or web address] Care Teams Executive Director Relationship Specialty Start Date End Date Gregory Rausch MD [address] [facility] [place] [address] PCP - General Family Medicine 02/12/20 documented as of this encounter
--- OUTSIDE RECORDS SUMMARY | 2024-10-02 03:26 | External Medical Summary | Summary of Care ---
Author Name Unknown Organization [facility] Address [address] [place] [address] Phone [phone] Care Team Providers Care Price Analyst Name Role Phone Gregory Rausch MD Primary Care Provider [phone] Reason for Visit * Reason Comments eRx-Medication Refill Encounter Details Date Type Department Care Team (Late st Contact Info) Description 07/07/2024 Refill Family Practice [facility] [address] [place] [address] Gregory Rausch MD [address] [place], [place] [phone] Hypothyroidism; Heart failure, systolic, due to idiopathic [...] hypoglycemia E11.9 100 Tab 3 07/06/2021 Active PrecisionPoint SoftwareTouch Verio w/Device Kit Use up to 4 times a day E11.9 1 Kit 02/10/2022 Active PrecisionPoint SoftwareTouch Delica Lancets 33G TEST 4 TIMES [...] a week. 9 mL 1 06/16/2024 Active Dwspqxrkvz-Sysecns-A affeine 50-325-40 MG Oral Capsule (Fiorinal)Indication s:Acute [...] morning. 18 mL 3 06/20/2024 Active Klayesta 378738 UNIT/GM External Powder (Nystatin)Indication s:Candidal intertrigo APPLY [...] 12/21/2016 Diabetes mellitus 01/05/2014 12/21/2016 LEYVA RESEARCH OTHER*[id number] 01/05/2014 12/21/2016 Axillary pain 11/03/2013 12/21/2016 Obesity, [...] to be scanned into Electronic Medical Record [facility] V710 Clinical Trial*[id number] 12/22/2010 04/14/2011 S/P aortic valve replacement 12/01/2010 08/26/2011 S/P AORTIC VALVE REPLACEMENT - #25 pericardial Mc valve 11/01/2010 06/28/2018 Overview: Aortic valve replacement with #25 pericardial Mc valve, model 2800TFX, serial number [id number] (Dr. Walker) [facility] V710 Clinical Trial*[id number] 10/18/2010 11/21/2010 Type 2 diabetes mellitus wit [...] PPD 10/26/2019,10/17/2019 Pneumococcal Conjugate Vacci ne, 20-valent (Ipjmezw41) 06/22/2023 Pneumococcal Polysaccharide PPV23 (Pneumovax) 01/02/2008 Seasonal [...] encounter Miscellaneous Notes * Telephone Encounter - Cindy Butterfield RPh - 07/09/2024 10:20 AM EDT Refused Prescriptions: Disp Refills Levothyroxine Sodium 75 MCG Oral Tablet (L*90 Tab*2 Sig: TAKE 1TAB DAILY FIRST THING IN MORNING, AT LEAST 30 MIN PRIOR TO BREAKFAST OR OTHER MEDICATIONSRefused By: CINDY BUTTERFIELD for Refusal: Too soon Atorvastatin Calcium 40 MG Oral Tablet (Li*90 Tab*2 Sig: TAKE 1 TABLET BY MOUTH DAILY TO PREVENT HEART ATTACK/STROKE, PROTECT KIDNEY, ANDCHOLESTEROLRefused By: CINDY BUTTERFIELD for Refusal: Too soon documented in this encounter Plan of Treatment Upcoming Encounters Date Type Department Care Team (Late st Contact Info) Description 07/15/2024 11:30 AM EDT Office Visit Pharmacy, [facility] [place] [address] [facility] [place] [address] Pharmacist1, [facility] [address] [facility] [place] [address] 07/16/2024 2:30 PM EDT Hospital Encounter ENDO [facility], Endoscopy Room [facility] [address] [place] [phone] Rajinder Wheeler MD [address] [place] [address] 07/16/2024 2:30 PM EDT - 07/16/2024 3:00 PM EDT Surgery ENDO [facility], Endoscopy Room [facility] [address] [place] [phone] Rajinder Wheeler MD [address] [place] [address] COLONOSCOPY FLEXIBLE PROXIMAL DIAGNOSTIC 07/21/2024 2:00 PM EDT Scheduled Telephone [facility], [facility] [address] [facility] [place] [address] Lakesha Kign, MITCHELLN [address] [facility] [place] [address] 07/31/2024 11:15 AM EST Office Visit Ophthalmology, [facility] [address] [place] [address] Ramsey Burnett, DO [address] [place] [address] 08/12/2024 9:20 AM EST Office Visit Family Practice [facility] [address] [place] [address] Gregory Rausch MD [address] [facility] [place] [address] 08/26/2024 9:00 AM EST Office Visit Pharmacy, [facility] [address] [place] [address] Pharmacist1, [facility] [address] [facility] [place] [address] 11/03/2024 11:00 AM EST Office Visit Sleep Disorders Ctr [facility] [address] [place] [phone] Christina Birch DO [address] [place] [address] 11/04/2024 9:30 AM EST Office Visit Gastroenterology, [facility] [address] [place] [address] Tia Taylor CRNP [address] [place] [address] Scheduled Procedures Name Priority Associated Diagnoses Date/Ti [...] 10/25/2021, 02/16/2021, 01/18/2021 CKD PHOS USE SMARTSET 91059 06/18/202405/26, 06/16/2023, 06/15/2023, Additional history exists HbA1c 08/01/2024 01/30/2024, 08/25, 07/31/2023, Additional history exists Diabetic Eye Exam 09/13/2024 09/13/2023, , 09/13/2023, Additional history exists B-12 09/18/2024 09/18/2023, 08/24, 2020, Additional history exists GFR 11/01/2024 05/01/2024, 12/23, 10/15/2023, Additional history exists Albumin/Creatinine Ratio 01/07/2025 024, 03/09/2023, 12/22/2022, Additional history exists CKD HGB USE SMARTSET 26413 01/07/202501/07, 01/08/2024, 10/15/2023, Additional history exists TSH [...] this encounter Medical Devices Implanted Type Area Biomed Tech Device Identifier Shelf Expiration Date Model / Serial / Lot Cath Roselia Single Lumen - [id number] Implanted:Qty : 1 on 03/12/2008 at OR [facility] Left: Chest [employer] *DO NOT USE* 07/25/2012 21-4053-24 / / [id number] Sut Steel 6 M654g - [id number] Implanted:Qty : 1 on 11/01/2010 at OR [facility] N/A: Chest DO NOT USE M654G / / Sut Steel 6 M654g - [id number] Implanted:Qty : 1 on 11/01/2010 at OR [facility] N/A: Chest DO NOT USE M654G / / Valve Tarsha Aortic [id number] - [id number] Implanted:Qty : 1 on 11/01/2010 at OR [facility] N/A: Heart [employer] DANIEL 05/20/2012 2800TFX-25 / / [id number] Description:[email or web address] Mesh Soft 93x44up - [id number] Implanted:Qty : 1 on 10/10/2019 by Gigi Hendrickson MD at [place] [facility] N/A: Abdomen CR BARD : DAVOL [id number] 05/21/2024 [id number] / / [id number] Lens 22.5 Sn60wf - [id number] - [id number] Implanted:Qty : 1 on 09/15/2020 by Renaldo Cook, Cece Acosta MD at OR [facility] Right: Eye IVA : SURGICAL [id number] 05/13/2025 SN60 WF.225 / [id number] / [id number] Lens 21.5 Sn60wf - [id number] - [id number] Implanted:Qty : 1 on 12/19/2023 by Ramsey Burnett DO at OR [facility] Left: Eye IVA : SURGICAL 12/03/2024 SN60WF.2 15 / [id number] / documented as of this encounter Visit Diagnoses Diagnosis Hypothyroidism Unspecified hypothyroidism Heart failure, systolic, due to idiopathic cardiomyopathy (HCC) Unspecified systolic heart failure S/P AORTIC VALVE REPLACEMENT - #25 pericardial Mc valve Heart valve replaced by other means HTN, goal below 140/80 Unspecified essential hypertension Dyslipidemia, goal LDL below 70 Other and unspecified hyperlipidemia Pancolitis (HCC) [place] ulcerative (chronic) colitis documented in this encounter [...] statute hierarchy) Jovita Ovalle Adult Child Health Dental Laboratory Technology Teacher resentative (appointed verbally by patient or by statute hierarchy) Care Teams Price Analyst Relationship Specialty Start Date End Date Gregory Rausch MD [address] [place] [address] PCP - General Family Medicine 02/12/20 documented as of this encounter
--- OUTSIDE RECORDS SUMMARY | 2024-10-02 03:26 | External Medical Summary | Summary of Care ---
Author Name Unknown Organization [facility] Address [address] [place] [address] Phone [phone] Care Team Providers Care Dehairer Name Role Phone Deon Rausch MD Primary Care Provider [phone] Reason for Visit * Reason Comments eRx-Medication Refill Encounter Details Date Type Department Care Team (Late st Contact Info) Description 07/07/2024 Refill Family Practice [facility] [address] [place] [address] Tia Taylor CRNP [address] [place] [address] Allergies Active Allergy Reactions Criticality Noted Date Comments Adhesive Tape 07/02/2017 Can tolerate band-aids Glycerin Other (Please comment) 03/12/2008 Topical agents with glycein-burning & itching Lactose 12/09/2014 Dairy - gas Lisinopril Cough 01/21/2010 Monosodium Glutamate Edema Other 03/12/2008 Hands and feet Penicillins Rash 11/14/2007 documented as of this encounter (statuses as of 07/08/2024) Medications Medication Sig Dispensed Refills Start Date [...] Capsules by mouth in the morning. Active Pathwork DiagnosticsTouch Verio In Vitro Strip (Glucose Blood) Use [...] a week. 9 mL 1 06/16/2024 Active Mehmhgxfhh-Usdulke-E affeine 50-325-40 MG Oral Capsule (Fiorinal)Indication s:Acute [...] morning. 18 mL 3 06/20/2024 Active Klayesta 020851 UNIT/GM External Powder (Nystatin)Indication s:Candidal intertrigo APPLY [...] 130/80,Chronic heart failure with preserved ejection fraction ([facility]),Palpitations,H ypomagnesemia One tablet by mouth daily in the morning 90 Tablet 3 06/25/2024 Active Vancomycin HCl 125 MG Oral Capsule (Vancocin) TAKE 1 TABLET ORALLY 4 TIMES DAILY FOR 2 WKS, THEN 2 X/DAY X WK, THEN DAILY X 1 WK, THEN EVERY OTHER DAY FOR 8 WKS 100 Capsule 07/08/2024 Active documented as of this encounter (statuses as of 07/08/2024) Active Problems Problem Noted Date Diagnosed Date [...] 09/28/2020 Coronary artery disease invo lving [place] coronary artery of [place] heart without angina pectoris 12/16/2019 Last Assessment [...] as of this encounter (statuses as of 07/08/2024) Resolved Problems Problem Noted Date Diagnosed Date [...] 12/21/2016 Diabetes mellitus 01/05/2014 12/21/2016 LEYVA RESEARCH OTHER*[id number] 01/05/2014 12/21/2016 Axillary pain 11/03/2013 12/21/2016 Obesity, [...] ED ([facility] 08/25/2011) 08/26/2011 12/21/2016 ADVANCE DIRECTIVE INFORMATION 04/17/2011 12/21/2016 Overview: Yes, Patient instructed to provide copy of advance directive for provider to review and to be scanned into Electronic Medical Record ADVANCE DIRECTIVE INFORMATION 03/01/2011 12/21/2016 Overview: Yes, Patient instructed to provide copy of advance directive for provider to review and to be scanned into Electronic Medical Record [employer] V710 Clinical Trial*[id number] 12/22/2010 04/14/2011 S/P aortic valve replacement 12/01/2010 08/26/2011 S/P AORTIC VALVE REPLACEMENT - #25 pericardial Mc valve 11/01/2010 06/28/2018 Overview: Aortic valve replacement with #25 pericardial Mc valve, model 2800TFX, serial number [id number] (Dr. Walker) [facility] V710 Clinical Trial*[id number] 10/18/2010 11/21/2010 Type 2 diabetes mellitus wit [...] as of this encounter (statuses as of 07/08/2024) Immunizations Name Administration Dates Next Due COVID-19 mRNA, LNP-s, No Pre serve, 2-Dose Series (Moderna) 10/25/2021,02/16/2021,01/18/2021 HEP A - Hepatitis A (Adult > 18 yrs) 06/07/2018, 12/05/2017 Hepatitis B, 20+ yrs 06/07/2018,01/08/20 18,12/05/2017,06/15,10/27/2013,09/12/2013 PPD 10/26/2019,10/17/2019 Pneumococcal Conjugate Vacci ne, 20-valent (Dirrnbt82) 06/22/2023 Pneumococcal Polysaccharide PPV23 (Pneumovax) 01/02/2008 Seasonal [...] Telephone Encounter - Deon Rausch MD - 07/08/2024 12:45 PM EDTSigned Prescriptions: Disp Refills Vancomycin HCl 125 MG Oral Capsule (Vancoc*100 Ca*0 Sig: TAKE 1 TABLET ORALLY 4 TIMES DAILY FOR 2 WKS, THEN 2 X/DAY X WK, THEN DAILY X 1 WK, THEN EVERY OTHER DAY FOR 8 WKS Authorizing Provider: DEON RAUSCH * Telephone Encounter - Briseida Kang LPN - 07/08/2024 12:39 PM EDTPending Prescriptions: Disp Refills Vancomycin HCl 125 MG Oral Capsule [Pharma*100 Ca*0 Sig: TAKE 1 TABLET ORALLY 4 TIMES DAILY FOR 2 WKS, THEN 2 X/DAY X WK, THEN DAILY X 1 WK, THEN EVERY OTHER DAY FOR 8 WKS * Telephone Encounter - Briseida Kang LPN - 07/08/2024 12:34 PM EDT Looks like pt has been on this a few times over the years but not one of the orders have a diagnosis as to why. Is this something that you want pt to still be on? Or pt need to be seen first? * Telephone Encounter - Caroline Ellis - 07/07/2024 7:09 PM EDTPending Prescriptions: Disp Refills Vancomycin HCl 125 MG Oral Capsule [Pharma*100 Ca*0 Sig: TAKE 1TABLET ORALLY 4 TIMES DAILY FOR 2 WKS, THEN 2 X/DAY X WK, THEN DAILY X 1 WK, THEN EVERY OTHER DAY FOR 8 WKS documented in this encounter Plan of Treatment Upcoming Encounters Date Type Department Care Team (Late st Contact Info) Description 07/08/2024 6:10 PM EDT Pharmacy Pharmacy, [facility] [place] [address] [place] [address] Pharmacist1, [facility] [address] [place] [address] Type 2 diabetes mellitus with diabetic cataract, with long-term current use of insulin (HCC)* 07/15/2024 11:30 AM EDT Office Visit Pharmacy, [facility] [place] [address] [place] [address] Pharmacist1, [facility] [address] [place] [address] 07/16/2024 2:30 PM EDT Hospital Encounter ENDO OSSC, Endoscopy Room [facility] [address] [place] [phone] Rajinder Wheleer MD [address] [place] [address] 07/16/2024 2:30 PM EDT - 07/16/2024 3:00 PM EDT Surgery ENDO O[facility], Endoscopy Room [facility] [address] [place] [phone] Rajinder Wheeler MD [address] [place] [address] COLONOSCOPY FLEXIBLE PROXIMAL DIAGNOSTIC 07/21/2024 2:00 PM EDT Scheduled Telephone [facility], [facility] [address] [facility] [place] [address] Lakesha King RDN [address] [address] [place] [address] 07/31/2024 11:15 AM EST Office Visit Ophthalmology, [facility] [address] [place] [address] Ramsey Burnett, DO [address] [facility] [place] [address] 08/12/2024 9:20 AM EST Office Visit Family Practice [facility] [address] [place] [address] Deon Rausch MD [address] [facility] [place] [address] 08/26/2024 9:00 AM EST Office Visit Pharmacy, [facility] [address] [facility] [place] [address] Pharmacist1, [facility] [address] [place] [address] 11/03/2024 11:00 AM EST Office Visit Sleep Disorders Ctr [facility] [address] [place] [phone] Christina Birch DO [address] [place] [address] 11/04/2024 9:30 AM EST Office Visit Gastroenterology, [facility] [address] [place] [address] Tia Taylor CRNP [address] [place] [address] Scheduled Procedures Name Priority Associated Diagnoses Date/Ti [...] 10/25/2021, 02/16/2021, 01/18/2021 CKD PHOS USE SMARTSET 17961 06/18/202405/26, 06/16/2023, 06/15/2023, Additional history exists HbA1c 08/01/2024 01/30/2024, 08/25, 07/31/2023, Additional history exists Diabetic Eye Exam 09/13/2024 09/13/2023, , 09/13/2023, Additional history exists B-12 09/18/2024 09/18/2023, 08/24, 2020, Additional history exists GFR 11/01/2024 05/01/2024, 12/23, 10/15/2023, Additional history exists Albumin/Creatinine Ratio 01/07/2025 024, 03/09/2023, 12/22/2022, Additional history exists CKD HGB USE SMARTSET 99583 01/07/202501/07, 01/08/2024, 10/15/2023, Additional history exists TSH [...] this encounter Medical Devices Implanted Type Area Band Saw Operator Cake Cutting Device Identifier Shelf Expiration Date Model / Serial / Lot Cath Roselia Single Lumen - [id number] Implanted:Qty : 1 on 03/12/2008 at OR [facility] Left: Chest [facility] *DO NOT USE* 07/25/2012 21-4053-24 / / [id number] Sut Steel 6 M654g - [id number] Implanted:Qty : 1 on 11/01/2010 at OR [facility] N/A: Chest DO NOT USE M654G / / Sut Steel 6 M654g - [id number] Implanted:Qty : 1 on 11/01/2010 at OR [facility] N/A: Chest DO NOT USE M654G / / Valve Tarsha Aortic [id number] - [id number] Implanted:Qty : 1 on 11/01/2010 at OR [facility] N/A: Heart [employer] DANIEL 05/20/2012 2800TFX-25 / / [id number] Description:[email or web address] Mesh Soft 33s66cn - [id number] Implanted:Qty : 1 on 10/10/2019 by Gigi Hendrickson MD at OR [facility] N/A: Abdomen CR BARD : DAVOL [id number] 05/21/2024 [id number] / / [id number] Lens 22.5 Sn60wf - [id number] - [id number] Implanted:Qty : 1 on 09/15/2020 by Renaldo Cook, Cece Acosta MD at OR [facility] Right: Eye IVA : SURGICAL [id number] 05/13/2025 SN60 WF.225 / [id number] / [id number] Lens 21.5 Sn60wf - [id number] - [id number] Implanted:Qty : 1 on 12/19/2023 by Ramsey Burnett DO at OR [facility] Left: Eye IVA : SURGICAL 12/03/2024 SN60WF.2 15 / [id number] / documented as of this encounter [...] statute hierarchy) Jovita Ovalle Adult Child Health Brusher Tender resentative (appointed verbally by patient or by statute hierarchy) [email or web address] Care Teams Dehairer Relationship Specialty Start Date End Date Deon Rausch MD [address] [place] [address] PCP - General Family Medicine 02/12/20 documented as of this encounter
--- OUTSIDE RECORDS SUMMARY | 2024-10-02 03:26 | External Medical Summary | Summary of Care ---
Author Name Unknown Organization [facility] Address [address] [place] [address] Phone [phone] Care Team Providers Care Gerontology Aide Name Role Phone Gregory Rausch MD Primary Care Provider [phone] Reason for Visit * Reason Onset Date Comments [facility]: Acute 07/07/2024 Encounter Details Date Type Department Care Team (Late st Contact Info) Description 07/07/2024 Telephone [facility], [address] [address] Shilpa Tadeo RN [address] [place] [address] [place] [address] [facility]: Acute Allergies Active Allergy [...] a week. 9 mL 1 06/16/2024 Active Oiqdnzzhyo-Pjmrvky-J affeine 50-325-40 MG Oral Capsule (Fiorinal)Indication s:Acute [...] morning. 18 mL 3 06/20/2024 Active Klayesta 300837 UNIT/GM External Powder (Nystatin)Indication s:Candidal intertrigo APPLY [...] failure with preserved ejection fraction ([facility]),Palpitations,H ypomagnesemia One tablet by mouth daily [...] eye 09/28/2020 Coronary artery disease invo lving [place] coronary artery of [place] heart without angina pectoris 12/16/2019 Last [...] 12/21/2016 Diabetes mellitus 01/05/2014 12/21/2016 LEYVA RESEARCH OTHER*[id number] 01/05/2014 12/21/2016 Axillary pain 11/03/2013 12/21/2016 Obesity, [...] Record [facility] V710 Clinical Trial*[id number] 12/22/2010 04/14/2011 S/P aortic valve replacement 12/01/2010 08/26/2011 S/P AORTIC VALVE REPLACEMENT - #25 pericardial Mc valve 11/01/2010 06/28/2018 Overview: Aortic valve replacement with #25 pericardial Mc valve, model 2800TFX, serial number [id number] (Dr. Walker) [facility] V710 Clinical Trial*[id number] 10/18/2010 11/21/2010 Type 2 diabetes mellitus wit [...] PPD 10/26/2019,10/17/2019 Pneumococcal Conjugate Vacci ne, 20-valent ([id number]) 06/22/2023 Pneumococcal Polysaccharide PPV23 (Pneumovax) 01/02/2008 Seasonal [...] Telephone Encounter - Shilpa Tadeo RN - 07/08/2024 9:57 AM EDT [facility] at Home Telephonic Nurse Follow-Up Call [facility] Subprogram: Focused Care Management (3-9 months) Follow Up Call Type: Routine follow up call / Status Check Acute issue requiring follow-up call: Other: Diarrhea and BS Objective: 06/30/2024 10:07 AM 06/23/2024 9:03 AM 06/11/2024 2:03 PM 06/05/2024 9:14 AM 05/08/2024 10:40 AM VITALS ACROSS ENCOUNTERS BP 130/80 128/80 112/68 124/60 118/74 Pulse 90 105 84 95 84 Weight 70.8 kg 66.7 kg 67.8 kg BMI 29.67 BMI 31.51 kg/m2 29.69 kg/m2 30.18 kg/m2 Subjective: Condition Status: [facility] Current Concerns: Left message requesting call back and to review [facility] AP recommendations Disposition: Routed to [facility] and[facility]or [facility] Care Team for further advice Future Visits Scheduled: Future Appointments-next 60 days Date/Time Provider Specialty Dept Phone 07/08/2024 6:10 PM Pharmacist1, [facility] [phone] 07/15/2024 11:30 AM Pharmacist1, [facility] [phone] 07/21/2024 2:00 PM Lakesha King RDN [facility] [phone] 07/31/2024 11:15 AM Ramsey Burnett DO Ophthalmology [phone] 08/12/2024 9:20 AM (Arrive by 9:05 AM) Gregory Rausch MD Family Medicine [phone] 08/26/2024 9:00 AM Pharmacist1, [facility] [phone] 11/03/2024 11:00 AM (Arrive by 10:45 AM) Christina Birch DO Sleep Disorders [phone] 11/04/2024 9:30 AM (Arrive by 9:15 AM) Tia Taylor CRNP Gastroenterology [phone] Shilpa Tadoe RN * Telephone Encounter - Shilpa Tadeo RN - 07/07/2024 1:37 PM EDT [facility] teletypesetter monitor Acute Call Date: 07/07/2024 Time: 1:37 PM Name: Jovita Rose : 1960 Caller: Jovita Relationship to self Chief Complaint Patient presents with [facility]: Acute HPI: Jovita Rose is a 63 year old female that is calling [facility] to report that she is having increased liquid/solid stools for the past 5 days, 8 bouts daily. Has not tried any imodium and admits to drinking 5-32 ounce Gatorades daily, not the sugar free ones. BS has been runningin the 300's. She has [facility] appointment tomorrow in person. She does not think its C-diff as there is solid to the BM's also. Complaining of intermittent abdominal discomfort at times. Encouraged to use Immodium as directed. Colonoscopy scheduled for tomorrowwas rescheduled later this month. Nursing Assessment: Patient's chief complaint for this call: Other, describe diarrhea Pain Has pain Pain level: 2 Location: abdomen Quality of Pain: aching Does the pain radiate: No Baseline Assessment Able to performing ADLs at baseline (walking, daily tasks, etc.): Yes Chief Complaint is related to a chronic condition: Yes Chronic Condition: DM Chief Complaint is a change in baseline: Yes, increased diarrhea Patient prescribed oxygen? No Patient has been ordered DME equipment (assistive devices, respiratory equipment, etc.): No Medication Reconciliation: (See medication list) Received flu shot this season: No Taking medication as ordered: Yes Medications ordered/taking to treat reason for call: No Heart failure symptoms: No COPD exacerbation symptoms: No Reinforcement Education: Routed to care team for recommendations Treatment/Plan: Level of call: Non-Acute Recommended treatment plan: Clinical advice given over the phone ALICE Andersen Registered Nurse Navigator Triage [facility] * Telephone Encounter - Shilpa Tadeo RN - 07/07/2024 9:56 AM EDT Phone call from patient stating she was instructed to call into [facility] when her bowels are liquidy again, reports that they are liquid. Has upcoming colonoscopy tomorrow and has not started the prep. Instructed to call Pre-surgery center at [facility], caller transferred to [phone]. ALICE Andersen Registered Nurse Navigator Triage [facility] documented in this encounter Plan of Treatment Upcoming Encounters Date Type Department Care Team (Late st Contact Info) Description 07/08/2024 6:10 PM EDT Pharmacy Pharmacy, [facility] [place] [address] [place] [address] Pharmacist1, [facility] [address] [place] [address] Type 2 diabetes mellitus with diabetic cataract, with long-term current use of insulin (HCC)* 07/15/2024 11:30 AM EDT Office Visit Pharmacy, [facility] [place] [address] [place] [address] Pharmacist1, [facility] [address] [place] [address] 07/16/2024 2:30 PM EDT Hospital Encounter ENDO OSS[facility], Endoscopy Room [facility] [address] [place] [phone] Rajinder Wheeler MD [address] [place] [address] 07/16/2024 2:30 PM EDT - 07/16/2024 3:00 PM EDT Surgery ENDO [facility], Endoscopy Room [facility] [address] [phone] Rajinder Wheeler MD [address] [place] [address] COLONOSCOPY FLEXIBLE PROXIMAL DIAGNOSTIC 07/21/2024 2:00 PM EDT Scheduled Telephone [facility], [facility] [address] [facility] [place] [address] Lakesha King, RDN [address] [facility] [place] [address] 07/31/2024 11:15 AM EST Office Visit Ophthalmology, [facility] [address] [place] [address] Ramsey Burnett, DO [address] [facility] [place] [address] 08/12/2024 9:20 AM EST Office Visit Family Practice [facility] [address] [place] [address] Gregory Rausch MD [address] [address] 08/26/2024 9:00 AM EST Office Visit Pharmacy, [facility] [address] [facility] [place] [address] Pharmacist1, [facility] [address] [place] [address] 11/03/2024 11:00 AM EST Office Visit Sleep Disorders Ctr [facility] [address] [place] [phone] Christina Birch DO [address] [place] [address] 11/04/2024 9:30 AM EST Office Visit Gastroenterology, [facility] [address] [place] [address] Tia Taylor CRNP [address] [place] [address] Scheduled Procedures Name Priority Associated Diagnoses Date/Ti [...] 10/25/2021, 02/16/2021, 01/18/2021 CKD PHOS USE SMARTSET 74284 06/18/202405/26, 06/16/2023, 06/15/2023, Additional history exists HbA1c 08/01/2024 01/30/2024, 08/25, 07/31/2023, Additional history exists Diabetic Eye Exam 09/13/2024 09/13/2023, , 09/13/2023, Additional history exists B-12 09/18/2024 09/18/2023, 08/24, 2020, Additional history exists GFR 11/01/2024 05/01/2024, 12/23, 10/15/2023, Additional history exists Albumin/Creatinine Ratio 01/07/2025 024, 03/09/2023, 12/22/2022, Additional history exists CKD HGB USE SMARTSET 52894 01/07/202501/07, 01/08/2024, 10/15/2023, Additional history exists TSH [...] encounter Medical Devices Implanted Type Area Final Cigar And Box Examiner Device Identifier Shelf Expiration Date Model / Serial / Lot Cath Roselia Single Lumen - [id number] Implanted:Qty : 1 on 03/12/2008 at OR [facility] Left: Chest [employer] *DO NOT USE* 07/25/2012 21-4053-24 / / [id number] Sut Steel 6 M654g - [id number] Implanted:Qty : 1 on 11/01/2010 at OR [facility] N/A: Chest DO NOT USE M654G / / Sut Steel 6 M654g - [id number] Implanted:Qty : 1 on 11/01/2010 at OR [facility] N/A: Chest DO NOT USE M654G / / Valve Tarsha Aortic [id number] - [id number] Implanted:Qty : 1 on 11/01/2010 at OR [facility] N/A: Heart [employer] DANIEL 05/20/2012 2800TFX-25 / / [id number] Description:[email or web address] Mesh Soft 82v85ek - [id number] Implanted:Qty : 1 on 10/10/2019 by Gigi Hendrickson MD at OR [facility] N/A: Abdomen CR BARD : DAVOL [id number] 05/21/2024 [id number] / / [id number] Lens 22.5 Sn60wf - [id number] - [id number] Implanted:Qty : 1 on 09/15/2020 by Renaldo Cook, Cece Acosta MD at OR [facility] Right: Eye IVA : SURGICAL [id number] 05/13/2025 SN60 WF.225 / [id number] / [id number] Lens 21.5 Sn60wf - [id number] - [id number] Implanted:Qty : 1 on 12/19/2023 by Ramsey Burnett DO at OR [facility] Left: Eye IVA : SURGICAL 12/03/2024 SN60WF.2 15 / [id number] / documented as of this encounter [...] statute hierarchy) Jovita Ovalle Adult Child Health Band Singer resentative (appointed verbally by patient or by statute hierarchy) Care Teams Gerontology Aide Relationship Specialty Start Date End Date Gregory Rausch MD [address] [place] [address] PCP - General Family Medicine 02/12/20 documented as of this encounter
--- OUTSIDE RECORDS SUMMARY | 2024-10-02 03:26 | External Medical Summary | Summary of Care ---
Author Name Unknown Organization [facility] Address [address] [place] [address] Phone [phone] Care Team Providers Care Family Service Assistant Name Role Phone Gregory Rausch MD Primary Care Provider [phone] [phone] Encounter Details Date Type Department Care Team (Late st Contact Info) Description 07/08/2024 Population Health External Data Unspecified Department Allergies [...] [facility]) Use up to 50 units [...] Capsule before bedtime. 60 Capsule 05/06/2024 Active Additional Information Patient not taking.Reported on 07/09/2024 DULoxetine HCl 20 MG Oral Capsule Delayed [...] Indications: weekly on fridays, Reported on 07/09/2024 Lbixmrjfrs-Qrqnktl-I affeine 50-325-40 MG Oral Capsule (Fiorinal)Indication s:Acute [...] [facility]) Inject 36 Units under the skin in the morning. 18 mL 3 06/20/2024 Active Klayesta 476136 UNIT/GM External Powder (Nystatin)Indication s:Candidal intertrigo APPLY [...] heart failure with preserved ejection fraction ([facility]),Palpitations,H ypomagnesemia One tablet by mouth daily [...] [place] heart without angina pectoris 12/16/2019 Last Assessment [...] 12/21/2016 Diabetes mellitus 01/05/2014 12/21/2016 LEYVA RESEARCH OTHER*[id number] 01/05/2014 12/21/2016 Axillary pain 11/03/2013 12/21/2016 Obesity, [...] cath 09/201008/26/2011 12/21/2016 FOLLOWING SURGERY, UNSPECIFI ED ([facility] BSO 08/25/2011) 08/26/2011 12/21/2016 ADVANCE DIRECTIVE INFORMATION 04/17/2011 12/21/2016 Overview: Yes, Patient instructed to provide copy of advance directive for provider to review and to be scanned into Electronic Medical Record ADVANCE DIRECTIVE INFORMATION 03/01/2011 12/21/2016 Overview: Yes, Patient instructed to provide copy of advance directive for provider to review and to be scanned into Electronic Medical Record [facility] V710 Clinical Trial*[id number] 12/22/2010 04/14/2011 S/P aortic valve replacement 12/01/2010 08/26/2011 S/P AORTIC VALVE REPLACEMENT - #25 pericardial Mc valve 11/01/2010 06/28/2018 Overview: Aortic valve replacement with #25 pericardial Mc valve, model 2800TFX, serial number [id number] (Dr. Walker) [facility] V710 Clinical Trial*[id number] 10/18/2010 11/21/2010 Type 2 diabetes mellitus wit [...] PPD 10/26/2019,10/17/2019 Pneumococcal Conjugate Vacci ne, 20-valent (Wenzifg30) 06/22/2023 Pneumococcal Polysaccharide PPV23 (Pneumovax) 01/02/2008 Seasonal [...] 07/15/2024 11:30 AM EDT Office Visit Pharmacy, [facility] [address] [facility] [place] [address] Pharmacist1, [facility] [address] [facility] [place] [address] 07/16/2024 2:30 PM EDT Hospital Encounter ENDO O[facility], Endoscopy Room [facility] [address] [place] [phone] Rajinder Wheeler MD [address] [place] [address] 07/16/2024 2:30 PM EDT - 07/16/2024 3:00 PM EDT Surgery ENDO [facility], Endoscopy Room [facility] [address] [place] [phone] Rajinder Wheeler MD [address] [place] [address] COLONOSCOPY FLEXIBLE PROXIMAL DIAGNOSTIC 07/21/2024 2:00 PM EDT Scheduled Telephone [facility], [facility] [address] [facility] [place] [address] Lakesha King, RDN [address] [facility] [place] [address] 07/31/2024 11:15 AM EST Office Visit Ophthalmology, [facility] [address] [facility] [place] [address] Ramsey Burnett, DO [address] [facility] [place] [address] 08/12/2024 9:20 AM EST Office Visit Family Practice [facility] [address] [facility] [place] [address] Gregory Rausch MD 132 [facility] [place] [address] 08/26/2024 9:00 AM EST Office Visit [facility], [facility] [address] Pharmacist1, [facility] [address] [facility] [address] 11/03/2024 11:00 AM EST Office Visit Sleep Disorders [facility] [address] [facility] [place] [phone] Christina Birch, DO [address] [facility] [place] [address] 11/04/2024 9:30 AM EST Office Visit Gastroenterology, [facility] [address] [facility] [place] [address] Tia Taylor CRNP [address] [facility] [place] [address] Scheduled Procedures Name Priority Associated Diagnoses Date/Ti [...] 10/25/2021, 02/16/2021, 01/18/2021 CKD PHOS USE SMARTSET 74659 06/18/202405/26, 06/16/2023, 06/15/2023, Additional history exists HbA1c 08/01/2024 01/30/2024, 08/25, 07/31/2023, Additional history exists Diabetic Eye Exam 09/13/2024 09/13/2023, , 09/13/2023, Additional history exists B-12 09/18/2024 09/18/2023, 08/24, 2020, Additional history exists GFR 11/01/2024 05/01/2024, 12/23, 10/15/2023, Additional history exists Albumin/Creatinine Ratio 01/07/2025 024, 03/09/2023, 12/22/2022, Additional history exists CKD HGB USE SMARTSET 06615 01/07/202501/07, 01/08/2024, 10/15/2023, Additional history exists TSH [...] this encounter Medical Devices Implanted Type Area Production Scheduler Device Identifier Shelf Expiration Date Model / Serial / Lot Cath Roselia Single Lumen - [id number] Implanted:Qty : 1 on 03/12/2008 at OR [facility] Left: Chest [facility] *DO NOT USE* 07/25/2012 21-4053-24 / / [id number] Sut Steel 6 M654g - [id number] Implanted:Qty : 1 on 11/01/2010 at OR [facility] N/A: Chest DO NOT USE M654G / / Sut Steel 6 M654g - [id number] Implanted:Qty : 1 on 11/01/2010 at OR [facility] N/A: Chest DO NOT USE M654G / / Valve Tarsha Aortic [id number] - [id number] Implanted:Qty : 1 on 11/01/2010 at OR [facility] N/A: Heart [employer] 05/20/2012 2800TFX-25 / / [id number] Description:[email or web address] Mesh Soft 37e26ze - [id number] Implanted:Qty : 1 on 10/10/2019 by Gigi Hendrickson MD at [place] [facility] [place] N/A: Abdomen CR BARD : DAVOL [id number] 05/21/2024 [id number] / / [id number] Lens 22.5 Sn60wf - [id number] - [id number] Implanted:Qty : 1 on 09/15/2020 by Cece Roland MD at OR [facility] Right: Eye IVA : SURGICAL [id number] 05/13/2025 SN60 WF.225 / [id number] / [id number] Lens 21.5 Sn60wf - [id number] - [id number] Implanted:Qty : 1 on 12/19/2023 by Ramsey Burnett DO at OR [facility] Left: Eye IVA : SURGICAL 12/03/2024 SN60WF.2 15 / [id number] / documented as of this encounter [...] statute hierarchy) Jovita Ovalle Adult Child Health Ict Systems Test Engineer resentative (appointed verbally by patient or by statute hierarchy) [email or web address] Care Teams Family Service Assistant Relationship Specialty Start Date End Date Gregory Rausch MD [address] [place] [address] PCP - General Family Medicine 02/12/20 documented as of this encounter
--- OUTSIDE RECORDS SUMMARY | 2024-10-02 03:26 | External Medical Summary | Summary of Care ---
Author Name Unknown Organization [facility] Address [address] [place] [address] Phone [phone] Care Team Providers Care Wash Plant Operator Name Role Phone Gregory Rausch MD Primary Care Provider [phone] Reason for Visit * Reason Onset Date Comments Follow Up 06/27/2024 Encounter Details Date Type Department Care Team (Late st Contact Info) Description 06/27/2024 Telephone [facility] [address] [place] [address] Fidelina Baumann MD [address] [place] [address] Follow Up Allergies Active Allergy [...] Capsules by mouth in the morning. Active Compliance 360Touch Verio In Vitro Strip (Glucose Blood) Use [...] a week. 9 mL 1 06/16/2024 Active Mlrrpephpf-Qbtbvfr-P affeine 50-325-40 MG Oral Capsule (Fiorinal)Indication s:Acute [...] of insulin ([facility]) Inject 36 Units under the skin in the morning. 18 mL 3 06/20/2024 Active Klayesta 631093 UNIT/GM External Powder (Nystatin)Indication s:Candidal intertrigo APPLY [...] 130/80,Chronic heart failure with preserved ejection fraction ([facility]),Palpitations,H ypomagnesemia One tablet by mouth daily in [...] of council heart without angina pectoris 12/16/2019 Last Assessment [...] 12/21/2016 Diabetes mellitus 01/05/2014 12/21/2016 LEYVA RESEARCH OTHER*[id number] 01/05/2014 12/21/2016 Axillary pain 11/03/2013 12/21/2016 Obesity, [...] to be scanned into Electronic Medical Record [facility] V710 Clinical Trial*[id number] 12/22/2010 04/14/2011 S/P aortic valve replacement 12/01/2010 08/26/2011 S/P AORTIC VALVE REPLACEMENT - #25 pericardial Mc valve 11/01/2010 06/28/2018 Overview: Aortic valve replacement with #25 pericardial Mc valve, model 2800TFX, serial number [id number] (Dr. Walker) [facility] V710 Clinical Trial*[id number] 10/18/2010 11/21/2010 Type 2 diabetes mellitus wit [...] PPD 10/26/2019,10/17/2019 Pneumococcal Conjugate Vacci ne, 20-valent (Aagadoc14) 06/22/2023 Pneumococcal Polysaccharide PPV23 (Pneumovax) 01/02/2008 Seasonal [...] w/ periodic 3 day logs; sametarget as [facility]5 CC365 FYI documented in this encounter Plan of Treatment Upcoming Encounters Date Type Department Care Team (Late st Contact Info) Description 07/15/2024 11:30 AM EDT Office Visit Pharmacy, [facility] [address] [place] [address] Pharmacist1, [facility] [address] [place] [address] 07/16/2024 2:30 PM EDT Hospital Encounter ENDO [facility], Endoscopy Room [facility] [address] [place] [address] Rajinder Wheeler MD [address] [place] [address] 07/16/2024 2:30 PM EDT - 07/16/2024 3:00 PM EDT Surgery ENDO [facility], Endoscopy Room [facility] [address] [place] [phone] Rajinder Wheeler MD [address] [place] [address] COLONOSCOPY FLEXIBLE PROXIMAL DIAGNOSTIC 07/21/2024 2:00 PM EDT Scheduled Telephone [facility], [facility] [address] [facility] [place] [address] Lakesha King, RDN [address] [facility] [place] [address] 07/31/2024 11:15 AM EST Office Visit Ophthalmology, [facility] [address] [place] [address] Ramsey Burnett, DO [address] [facility] [place] [address] 08/12/2024 9:20 AM EST Office Visit Family Practice [facility] [address] [place] [address] Gregory Rausch MD [address] [place] [address] 08/26/2024 9:00 AM EST Office Visit Pharmacy, [facility] [place] 200 [facility] [place] [address] Pharmacist1, [facility] 200 [facility] [place] [address] 11/03/2024 11:00 AM EST Office Visit Sleep Disorders [facility] [address] [place] [phone] Christina Birch DO [address] [place] [address] 11/04/2024 9:30 AM EST Office Visit Gastroenterology, [facility] [address] [place] [address] Tia Taylor CRNP [address] [place] [address] Scheduled Procedures Name Priority Associated Diagnoses Date/Ti [...] 10/25/2021, 02/16/2021, 01/18/2021 CKD PHOS USE SMARTSET 30394 06/18/202405/26, 06/16/2023, 06/15/2023, Additional history exists HbA1c 08/01/2024 01/30/2024, 08/25, 07/31/2023, Additional history exists Diabetic Eye Exam 09/13/2024 09/13/2023, , 09/13/2023, Additional history exists B-12 09/18/2024 09/18/2023, 08/24, 2020, Additional history exists GFR 11/01/2024 05/01/2024, 12/23, 10/15/2023, Additional history exists Albumin/Creatinine Ratio 01/07/2025 024, 03/09/2023, 12/22/2022, Additional history exists CKD HGB USE SMARTSET 30892 01/07/202501/07, 01/08/2024, 10/15/2023, Additional history exists TSH [...] this encounter Medical Devices Implanted Type Area Siderographist Device Identifier Shelf Expiration Date Model / Serial / Lot Cath Roselia Single Lumen - [id number] Implanted:Qty : 1 on 03/12/2008 at OR [facility] Left: Chest [facility] *DO NOT USE* 07/25/2012 21-4053-24 / / [id number] Sut Steel 6 M654g - [id number] Implanted:Qty : 1 on 11/01/2010 at OR [facility] N/A: Chest DO NOT USE M654G / / Sut Steel 6 M654g - [id number] Implanted:Qty : 1 on 11/01/2010 at OR [facility] N/A: Chest DO NOT USE M654G / / Valve Tarsha Aortic [id number] - [id number] Implanted:Qty : 1 on 11/01/2010 at OR [facility] N/A: Heart [employer] 05/20/2012 2800TFX-25 / / [id number] Description:[email or web address] Mesh Soft [id number] - [id number] Implanted:Qty : 1 on 10/10/2019 by Gigi Hendrickson MD [place] [facility]/A: Abdomen CR BARD : DAVOL [id number] 05/21/2024 [id number] / / [id number] Lens 22.5 Sn60wf - [id number] - [id number] Implanted:Qty : 1 on 09/15/2020 by Renaldo Cook, Cece Acosta MD at OR [facility] Right: Eye IVA : SURGICAL [id number] 05/13/2025 SN60 WF.225 / [id number] / [id number] Lens 21.5 Sn60wf - [id number] - [id number] Implanted:Qty : 1 on 12/19/2023 by Ramsey Burnett DO at OR [facility] Left: Eye IVA : SURGICAL 12/03/2024 SN60WF.2 15 / [id number] / documented as of this encounter [...] statute hierarchy) Jovita Ovalle Adult Child Health Visual Specialist resentative (appointed verbally by patient or by statute hierarchy) Care Teams Wash Plant Operator Relationship Specialty Start Date End Date Gregory Rausch MD [address] [place] [address] PCP - General Family Medicine 02/12/20 documented as of this encounter
--- OUTSIDE RECORDS SUMMARY | 2024-10-02 03:27 | External Medical Summary | Summary of Care ---
Author Name Unknown Organization [facility] Address [address] [place] [address] Phone [phone] Care Team Providers Care Blending Machine Feeder Name Role Phone Gregory Rausch MD Primary Care Provider [phone] Reason for Visit * Reason Onset Date Comments [facility]: Acute 07/07/2024 Encounter Details Date Type Department Care Team (Late st Contact Info) Description 07/07/2024 Telephone [facility], [address] [address] Shilpa Tadeo RN [address] [place] [address] [place] [address] [facility]: Acute Allergies Active Allergy Reactions Criticality Noted Date Comments Adhesive Tape 07/02/2017 Can tolerate band-aids Glycerin Other (Please comment) 03/12/2008 Topical agents with glycein-burning & itching Lactose 12/09/2014 Dairy - gas Lisinopril Cough 01/21/2010 Monosodium Glutamate Edema Other 03/12/2008 Hands and feet Penicillins Rash 11/14/2007 documented as of this encounter (statuses as of 07/07/2024) Medications Medication Sig Dispensed Refills Start Date [...] (Glucose)Indications :DM type 2, not at goal ([facility]) 3 every 15 minutes until [...] heart failure with preserved ejection fraction (HFpEF) ([facility]) Take 1 Tablet by mouth in the morning and 1 Tablet before bedtime. 180 Tablet 3 01/22/2024 Active BD Pen Needle Short U/F 31G X 8 MMIndications:Type 2 diabetes mellitus with hemoglobin A1c goal of less than 7.0% ([facility]),Type 2 diabetes mellitus with stage 3a chronic kidney disease, with long-term current use of insulin ([facility]) Use with insulin 4 times [...] hemoglobin A1c goal of less than 7.0% ([facility]) Use up to 50 units [...] a week. 9 mL 1 06/16/2024 Active Ouvmtlhmto-Snxztkv-W affeine 50-325-40 MG Oral Capsule (Fiorinal)Indication s:Acute [...] hemoglobin A1c goal of less than 7.0% ([facility]),Type 2 diabetes mellitus with stage 3a chronic kidney disease, with long-term current use of insulin ([facility]) Inject 36 Units under the skin in the morning. 18 mL 3 06/20/2024 Active Klayesta 273328 UNIT/GM External Powder (Nystatin)Indication s:Candidal intertrigo APPLY [...] 130/80,Chronic heart failure with preserved ejection fraction ([facility]),Palpitations,H ypomagnesemia One tablet by mouth daily in the morning 90 Tablet 3 06/25/2024 Active documented as of this encounter (statuses as of 07/07/2024) Active Problems Problem Noted Date Diagnosed Date [...] eye 09/28/2020 Coronary artery disease invo lving three affiliated coronary artery of three affiliated heart without angina pectoris 12/16/2019 Last Assessment [...] as of this encounter (statuses as of 07/07/2024) Resolved Problems Problem Noted Date Diagnosed Date [...] 12/21/2016 Diabetes mellitus 01/05/2014 12/21/2016 LEYVA RESEARCH OTHER*[id number] 01/05/2014 12/21/2016 Axillary pain 11/03/2013 12/21/2016 Obesity, [...] SURGERY, UNSPECIFI ED ([facility] BSO 08/25/2011) 08/26/2011 12/21/2016 ADVANCE DIRECTIVE INFORMATION 04/17/2011 12/21/2016 Overview: Yes, Patient instructed to provide copy of advance directive for provider to review and to be scanned into Electronic Medical Record ADVANCE DIRECTIVE INFORMATION 03/01/2011 12/21/2016 Overview: Yes, Patient instructed to provide copy of advance directive for provider to review and to be scanned into Electronic Medical Record [facility] V710 Clinical Trial*[id number] 12/22/2010 04/14/2011 S/P aortic valve replacement 12/01/2010 08/26/2011 S/P AORTIC VALVE REPLACEMENT - #25 pericardial Mc valve 11/01/2010 06/28/2018 Overview: Aortic valve replacement with #25 pericardial Mc valve, model 2800TFX, serial number [id number] (Dr. Walker) [facility] V710 Clinical Trial*[id number] 10/18/2010 11/21/2010 Type 2 diabetes mellitus wit [...] as of this encounter (statuses as of 07/07/2024) Immunizations Name Administration Dates Next Due COVID-19 mRNA, LNP-s, No Pre serve, 2-Dose Series (Moderna) 10/25/2021,02/16/2021,01/18/2021 HEP A - Hepatitis A (Adult > 18 yrs) 06/07/2018, 12/05/2017 Hepatitis B, 20+ yrs 06/07/2018,01/08/20 18,12/05/2017,06/15,10/27/2013,09/12/2013 PPD 10/26/2019,10/17/2019 Pneumococcal Conjugate Vacci ne, 20-valent ([place]04) 06/22/2023 Pneumococcal Polysaccharide PPV23 (Pneumovax) 01/02/2008 Seasonal [...] Tadeo RN - 07/07/2024 1:37 PM EDT [facility] warranty coordinator Acute Call Date: 07/07/2024 Time: 1:37 PM Name: Jovita Rose : 1960 Caller: Jovita Relationship to self Chief Complaint Patient presents with [facility] At Home: Acute HPI: Jovita Rose is a 63 year old female that is calling [facility] to report that she is having increased liquid/solid stools for the past 5 days, 8 bouts daily. Has not tried any imodium and admits to drinking 5-32 ounce Gatorades daily, not the sugar free ones. BS has been runningin the 300's. She has MTM appointment tomorrow in person. She does not [...] stating she was instructed to call into [facility] when her bowels are liquidy again, reports that they are liquid. Has upcoming colonoscopy tomorrow and has not started the prep. Instructed to call Pre-surgery center at [facility], caller transferred to [phone]. ALICE Andersen Registered Nurse Navigator Triage [facility] documented in this encounter Plan of Treatment Upcoming Encounters Date Type Department Care Team (Late st Contact Info) Description 07/08/2024 6:10 PM EDT Pharmacy Pharmacy, [facility] [address] [place] [address] Pharmacist1, [facility] Sp [address] [place] [address] 07/15/2024 11:30 AM EDT Office Visit Pharmacy, [facility] [address] [place] [address] [address] Pharmacist1, [facility] Sp [address] [place] [address] 07/16/2024 2:30 PM EDT Hospital Encounter ENDO [facility], Endoscopy Room [facility] [place] [phone] Rajinder Wheeler MD [address] [place] [address] 07/16/2024 2:30 PM EDT - 07/16/2024 3:00 PM EDT Surgery ENDO [facility], Endoscopy Room [facility] [address] [place] [phone] Rajinder Wheeler MD [address] [place] [address] COLONOSCOPY FLEXIBLE PROXIMAL DIAGNOSTIC 07/21/2024 2:00 PM EDT Scheduled Telephone [facility], [facility] [address] [facility] [place] [address] Lakesha King, RDN [address] [facility] [place] [address] 07/31/2024 11:15 AM EST Office Visit Ophthalmology, [facility] [address] [facility] [place] [address] Ramsey Burnett, DO [address] [facility] [place] [address] 08/12/2024 9:20 AM EST Office Visit Family Practice [facility] [address] [facility] [place] [address] Gregory Rausch MD [address] [place] [address] 08/26/2024 9:00 AM EST [facility] Visit [facility], [facility] [address] [facility] [place] [address] Pharmacist1, [facility] [address] [facility] [place] [address] 11/03/2024 11:00 AM EST Office Visit Sleep Disorders [facility] [address] [facility] [place] [phone] Christina Birch, [address] [place] [address] 11/04/2024 9:30 AM EST Office Visit Gastroenterology, [facility] [address] [place] [address] Tia Taylor CRNP [address] [place] [address] Scheduled Procedures Name Priority Associated Diagnoses Date/Ti [...] 10/25/2021, 02/16/2021, 01/18/2021 CKD PHOS USE SMARTSET 91693 06/18/202405/26, 06/16/2023, 06/15/2023, Additional history exists HbA1c 08/01/2024 01/30/2024, 08/25, 07/31/2023, Additional history exists Diabetic Eye Exam 09/13/2024 09/13/2023, , 09/13/2023, Additional history exists B-12 09/18/2024 09/18/2023, 08/24, 2020, Additional history exists GFR 11/01/2024 05/01/2024, 12/23, 10/15/2023, Additional history exists Albumin/Creatinine Ratio 01/07/2025 024, 03/09/2023, 12/22/2022, Additional history exists CKD HGB USE SMARTSET 55893 01/07/202501/07, 01/08/2024, 10/15/2023, Additional history exists TSH [...] this encounter Medical Devices Implanted Type Area Photographic Process Attendant Device Identifier Shelf Expiration Date Model / Serial / Lot Cath Roselia Single Lumen - [id number] Implanted:Qty : 1 on 03/12/2008 at OR [facility] Left: Chest [facility] *DO NOT USE* 07/25/2012 21-4053-24 / / [id number] Sut Steel 6 M654g - [id number] Implanted:Qty : 1 on 11/01/2010 at OR [facility] N/A: Chest DO NOT USE M654G / / Sut Steel 6 M654g - [id number] Implanted:Qty : 1 on 11/01/2010 at OR [facility] N/A: Chest DO NOT USE M654G / / Valve Tarsha Aortic [id number] - [id number] Implanted:Qty : 1 on 11/01/2010 at OR [facility] N/A: Heart [employer] 05/20/2012 2800TFX-25 / / [id number] Description:[email or web address] Mesh Soft 41b42dg - [id number] Implanted:Qty : 1 on 10/10/2019 by Gigi Hendrickson MD at [place] [facility] [place] N/A: Abdomen CR BARD : DAVOL [id number] 05/21/2024 [id number] / / [id number] Lens 22.5 Sn60wf - [id number] - [id number] Implanted:Qty : 1 on 09/15/2020 by Renaldo Cook, Cece Acosta MD at OR [facility] Right: Eye IVA : SURGICAL [id number] 05/13/2025 SN60 WF.225 / [id number] / [id number] Lens 21.5 Sn60wf - [id number] - [id number] Implanted:Qty : 1 on 12/19/2023 by Ramsey Burnett DO at OR [facility] Left: Eye IVA : SURGICAL 12/03/2024 SN60WF.2 15 / [id number] / documented as of this encounter [...] statute hierarchy) Jovita Ovalle Adult Child Health Management Psychologist resentative (appointed verbally by patient or by statute hierarchy) Care Teams Blending Machine Feeder Relationship Specialty Start Date End Date Gregory Rausch MD [address] [place] [address] PCP - General Family Medicine 02/12/20 documented as of this encounter
--- OUTSIDE RECORDS SUMMARY | 2024-10-02 03:27 | External Medical Summary | Summary of Care ---
Author Name Unknown Organization [facility] Address [address] [place] [address] Phone [phone] Care Team Providers Care Plant Assigner Name Role Phone Gregory Rausch MD Primary Care Provider [phone] Reason for Visit * Reason Onset Date Comments [facility]: Acute 07/07/2024 Encounter Details Date Type Department Care Team (Late st Contact Info) Description 07/07/2024 Telephone [facility], [address] [address] Shilpa Tadeo RN [address] [place] [address] [place] [address] [facility]: Acute Allergies Active [...] a week. 9 mL 1 06/16/2024 Active Ieluusdvjm-Gqhvaua-R affeine 50-325-40 MG Oral Capsule (Fiorinal)Indication s:Acute [...] morning. 18 mL 3 06/20/2024 Active Klayesta 063404 UNIT/GM External Powder (Nystatin)Indication s:Candidal intertrigo APPLY [...] 130/80,Chronic heart failure with preserved ejection fraction ([facility]),Palpitations,H ypomagnesemia One tablet by mouth daily [...] 12/21/2016 Diabetes mellitus 01/05/2014 12/21/2016 LEYVA RESEARCH OTHER*[id number] 01/05/2014 12/21/2016 Axillary pain 11/03/2013 12/21/2016 Obesity, [...] cath 09/201008/26/2011 12/21/2016 FOLLOWING SURGERY, UNSPECIFI ED ([facility] BSO 08/25/2011) 08/26/2011 12/21/2016 ADVANCE DIRECTIVE INFORMATION 04/17/2011 12/21/2016 Overview: Yes, Patient instructed to provide copy of advance directive for provider to review and to be scanned into Electronic Medical Record ADVANCE DIRECTIVE INFORMATION 03/01/2011 12/21/2016 Overview: Yes, Patient instructed to provide copy of advance directive for provider to review and to be scanned into Electronic Medical Record [facility] V710 Clinical Trial*[id number] 12/22/2010 04/14/2011 S/P aortic valve replacement 12/01/2010 08/26/2011 S/P AORTIC VALVE REPLACEMENT - #25 pericardial Mc valve 11/01/2010 06/28/2018 Overview: Aortic valve replacement with #25 pericardial Mc valve, model 2800TFX, serial number [id number] (Dr. Walker) [facility] V710 Clinical Trial*[id number] 10/18/2010 11/21/2010 Type 2 diabetes mellitus wit [...] PPD 10/26/2019,10/17/2019 Pneumococcal Conjugate Vacci ne, 20-valent (Ouszfmw88) 06/22/2023 Pneumococcal Polysaccharide PPV23 (Pneumovax) 01/02/2008 Seasonal [...] stating she was instructed to call into [facility] when her bowels are liquidy again, reports that they are liquid. Has upcoming colonoscopy tomorrow and has not started the prep. Instructed to call Pre-surgery center at [facility], caller transferred to [phone]. ALICE Andersen Registered Nurse Navigator Triage [facility] documented in this encounter Plan of Treatment Upcoming Encounters Date Type Department Care Team (Late st Contact Info) Description 07/08/2024 6:10 PM EDT Pharmacy Pharmacy, [facility] [place] [address] [place] [address] [address] Pharmacist1, [facility] [address] [place] [address] 07/15/2024 11:30 AM EDT Office Visit Pharmacy, [facility] [place] [address] [place] [address] [address] Pharmacist1, [facility] [address] [place] [address] 07/16/2024 2:30 PM EDT Hospital Encounter ENDO [facility], Endoscopy Room [facility] [address] [place] [phone] Rajinder Wheeler MD [address] [place] [address] 07/16/2024 2:30 PM EDT - 07/16/2024 3:00 PM EDT Surgery ENDO [facility], Endoscopy Room [facility] [address] [place] [phone] Rajinder Wheeler MD [address] [place] [address] COLONOSCOPY FLEXIBLE PROXIMAL DIAGNOSTIC 07/21/2024 2:00 PM EDT Scheduled Telephone [facility], [facility] [address] [place] [address] Lakesha King, ROBERT [address] [place] [address] 07/31/2024 11:15 AM EST Office Visit Ophthalmology, [facility] [address] [place] [address] Ramsey Burnett DO [address] [place] [address] 08/12/2024 9:20 AM EST Office Visit Family Practice [facility] [address] [facility] [place] [address] Gregory Rausch MD [address] [place] [address] 08/26/2024 9:00 AM EST Office Visit Pharmacy, [facility] [address] [facility] [place] [address] Pharmacist1, [facility] [address] [place] [address] 11/03/2024 11:00 AM EST Office Visit Sleep Disorders Ctr [facility] [address] [place] [phone] Christina Birch DO [address] [place] [address] 11/04/2024 9:30 AM EST Office Visit Gastroenterology, [facility] [address] [place] [address] Tia Taylor CRNP [address] [place] [address] Scheduled Procedures Name Priority Associated Diagnoses Date/Ti [...] 10/25/2021, 02/16/2021, 01/18/2021 CKD PHOS USE SMARTSET 61339 06/18/202405/26, 06/16/2023, 06/15/2023, Additional history exists HbA1c 08/01/2024 01/30/2024, 08/25, 07/31/2023, Additional history exists Diabetic Eye Exam 09/13/2024 09/13/2023, , 09/13/2023, Additional history exists B-12 09/18/2024 09/18/2023, 08/24, 2020, Additional history exists GFR 11/01/2024 05/01/2024, 12/23, 10/15/2023, Additional history exists Albumin/Creatinine Ratio 01/07/2025 024, 03/09/2023, 12/22/2022, Additional history exists CKD HGB USE SMARTSET 36465 01/07/202501/07, 01/08/2024, 10/15/2023, Additional history exists TSH [...] this encounter Medical Devices Implanted Type Area Dough Panner Device Identifier Shelf Expiration Date Model / Serial / Lot Cath Roselia Single Lumen - [id number] Implanted:Qty : 1 on 03/12/2008 at OR [facility] Left: Chest [employer] [facility] *DO NOT USE* 07/25/2012 21-4053-24 / / [id number] Sut Steel 6 M654g - [id number] Implanted:Qty : 1 on 11/01/2010 at OR [facility] N/A: Chest DO NOT USE M654G / / Sut Steel 6 M654g - [id number] Implanted:Qty : 1 on 11/01/2010 at OR [facility] N/A: Chest DO NOT USE M654G / / Valve Tarsha Aortic [id number] - [id number] Implanted:Qty : 1 on 11/01/2010 at OR [facility] N/A: Heart [employer] DANIEL 05/20/2012 [id number] / / [id number] Description:[email or web address] Mesh Soft 80w05fn - [id number] Implanted:Qty : 1 on 10/10/2019 by Gigi Hendrickson MD at OR [facility] N/A: Abdomen CR BARD : DAVOL [id number] 05/21/2024 [id number] / / [id number] Lens 22.5 Sn60wf - [id number] - [id number] Implanted:Qty : 1 on 09/15/2020 by Renaldo Cook, Cece Acosta MD at OR [facility] Right: Eye IVA : SURGICAL [id number] 05/13/2025 SN60 WF.225 / [id number] / [id number] Lens 21.5 Sn60wf - [id number] - [id number] Implanted:Qty : 1 on 12/19/2023 by Ramsey Burnett DO at OR [facility] Left: Eye IVA : SURGICAL 12/03/2024 SN60WF.2 15 / [id number] / documented as of this encounter [...] statute hierarchy) Jovita Ovalle Adult Child Health Sql Server Consultant resentative (appointed verbally by patient or by statute hierarchy) Care Teams Plant Assigner Relationship Specialty Start Date End Date Gregory Rausch MD [address] [place] [address] PCP - General Family Medicine 02/12/20 documented as of this encounter
--- OUTSIDE RECORDS SUMMARY | 2024-10-02 03:27 | External Medical Summary | Summary of Care ---
Author Name Unknown Organization [facility] Address [address] [place] [address] Phone [phone] Care Team Providers Care Assorter Laundry Name Role Phone Gregory Rausch MD Primary Care Provider [phone] Reason for Visit * Reason Onset Date Comments Home Health 07/02/2024 Encounter Details Date Type Department Care Team (Late st Contact Info) Description 07/02/2024 Telephone Family Practice [facility] [address] [place] [address] Gregory Rausch MD [address] [place] [address] Home Health Allergies Active Allergy Reactions Criticality Noted Date Comments Adhesive Tape 07/02/2017 Can tolerate band-aids Glycerin Other (Please comment) 03/12/2008 Topical agents with glycein-burning & itching Lactose 12/09/2014 Dairy - gas Lisinopril Cough 01/21/2010 Monosodium Glutamate Edema Other 03/12/2008 Hands and feet Penicillins Rash 11/14/2007 documented as of this encounter (statuses as of 07/02/2024) Medications Medication Sig Dispensed Refills Start Date [...] at goal ([facility]) 3 every 15 minutes until glucose is [...] a week. 9 mL 1 06/16/2024 Active Pgquuygmoc-Ogrwbsw-U affeine 50-325-40 MG Oral Capsule (Fiorinal)Indication s:Acute [...] ([facility]) Inject 36 Units under the skin in the morning. 18 mL 3 06/20/2024 Active Klayesta 850989 UNIT/GM External Powder (Nystatin)Indication s:Candidal intertrigo APPLY [...] as of this encounter (statuses as of 07/02/2024) Active Problems Problem Noted Date Diagnosed Date [...] as of this encounter (statuses as of 07/02/2024) Resolved Problems Problem Noted Date Diagnosed Date [...] 12/21/2016 Diabetes mellitus 01/05/2014 12/21/2016 LEYVA RESEARCH OTHER*[id number] 01/05/2014 12/21/2016 Axillary pain 11/03/2013 12/21/2016 Obesity, [...] 12/21/2016 FOLLOWING SURGERY, UNSPECIFI ED ([facility] BSO 08/25/2011) 08/26/2011 12/21/2016 ADVANCE DIRECTIVE INFORMATION 04/17/2011 12/21/2016 Overview: Yes, Patient instructed to provide copy of advance directive for provider to review and to be scanned into Electronic Medical Record ADVANCE DIRECTIVE INFORMATION 03/01/2011 12/21/2016 Overview: Yes, Patient instructed to provide copy of advance directive for provider to review and to be scanned into Electronic Medical Record [facility] V710 Clinical Trial*[id number] 12/22/2010 04/14/2011 S/P aortic valve replacement 12/01/2010 08/26/2011 S/P AORTIC VALVE REPLACEMENT - #25 pericardial Mc valve 11/01/2010 06/28/2018 Overview: Aortic valve replacement with #25 pericardial Mc valve, model 2800TFX, serial number [id number] (Dr. Walker) [facility] V710 Clinical Trial*[id number] 10/18/2010 11/21/2010 Type 2 diabetes mellitus wit [...] as of this encounter (statuses as of 07/02/2024) Immunizations Name Administration Dates Next Due COVID-19 mRNA, LNP-s, No Pre serve, 2-Dose Series (Moderna) 10/25/2021,02/16/2021,01/18/2021 HEP A - Hepatitis A (Adult > 18 yrs) 06/07/2018, 12/05/2017 Hepatitis B, 20+ yrs 06/07/2018,01/08/20 18,12/05/2017,06/15,10/27/2013,09/12/2013 PPD 10/26/2019,10/17/2019 Pneumococcal Conjugate Vacci ne, 20-valent (Hrcroht51) 06/22/2023 Pneumococcal Polysaccharide PPV23 (Pneumovax) 01/02/2008 Seasonal [...] Telephone Encounter - Lauro Self RPh - 07/02/2024 2:03 PM EDT Patient Phone Numbers Tresiba 36 units once daily Ozempic 2mg every Sunday Metformin 1000mg twice daily (On Hold) Novolog CF 2/50 over 200 (Flextouch pen) - give before every meal) Pt advised to give correction dose if BG is still elevated. Pt did give 14 units this AM after the BG of >500. Pt just checked BG and it is now 330, Pt to give 5 units as correction at this time. Lauro Self PharmD, BCACP, [facility] Clinical Pharmacist 07/02/2024, 2:13 PM * Telephone Encounter - Nida Jeff LPN - 07/02/2024 10:07 AM EDT Patient called with c/o with BS: Is BS high or low: High When did it start: 07/02/24 How often do you check your BS: 4 times a day Frequent urination: No Lightheaded: No Irritability or Nervousness: No Blurred vision: No Brain fog: No Cold/clammy: No SOB: No Numbness and/or tingling: No Weakness: No Any recent diet changes: No Tachycardia: No Fatigue: No Non symptomatic Recent med changes: No -Review meds and confirm doses- Taking all meds as directed: Yes Date 07/02 FBS 528- woke at 3 am and had 2 hot dogs with ketchup and relish Date 07/01 FBS 263 Afternoon 173 Evening 321 Please advice. Call patient with orders. Next appt 07/08/2024 documented in this encounter Plan of Treatment Upcoming Encounters Date Type Department Care Team (Late st Contact Info) Description 07/08/2024 2:30 PM EDT Hospital Encounter ENDO [facility], Endoscopy Room [facility] [address] [place] [phone] Ratna Lopez MD [address] [place] [address] 07/08/2024 2:30 PM EDT - 07/08/2024 3:00 PM EDT Surgery ENDO [facility], Endoscopy Room [facility] [address] [place] [phone] Ratna Lopez MD [address] [place] [address] COLONOSCOPY FLEXIBLE PROXIMAL DIAGNOSTIC 07/08/2024 6:10 PM EDT Pharmacy Pharmacy, [facility] [place] [address] [place] [address] Pharmacist1, [facility] [address] [place] [address] [address] 07/15/2024 11:30 AM EDT Office Visit Pharmacy, [facility] [employer] [address] [place] [address] [address] Pharmacist1, [facility] [address] [place] [address] 07/21/2024 2:00 PM EDT Scheduled Telephone [facility], [facility] [address] [facility] [place] [address] Lakesha King, RDN [address] [facility] [place] [address] 07/31/2024 11:15 AM EST Office Visit Ophthalmology, [facility] [address] [place] [address] Ramsey Burnett, DO [address] [facility] [place] [address] 08/12/2024 9:20 AM EST Office Visit Family Practice [facility] [address] [place] [address] Gregory Rausch MD [address] [facility] [place] [address] 08/26/2024 9:00 AM EST Office Visit Pharmacy, [facility] [address] [facility] [address] Pharmacist1, [facility] [address] [facility] [address] 11/03/2024 11:00 AM EST Office Visit Sleep Disorders [facility] [address] [facility] [place] [phone] Christina Birch, DO [address] [facility] [place] [address] 11/04/2024 9:30 AM EST Office Visit Gastroenterology, [facility] [address] [facility] [place] [address] Tia Taylor CRNP [address] [facility] [place] [address] Scheduled Procedures Name Priority Associated Diagnoses Date/Ti me COLONOSCOPY FLEXIBLE PROXIMA L DIAGNOSTIC Pancolitis (HCC) 07/08/2024 2:30 PM EDT COLONOSCOPY FLEXIBLE PROXIMA L [...] 10/25/2021, 02/16/2021, 01/18/2021 CKD PHOS USE SMARTSET 41074 06/18/202405/26, 06/16/2023, 06/15/2023, Additional history exists HbA1c 08/01/2024 01/30/2024, 08/25, 07/31/2023, Additional history exists Diabetic Eye Exam 09/13/2024 09/13/2023, , 09/13/2023, Additional history exists B-12 09/18/2024 09/18/2023, 08/24, 2020, Additional history exists GFR 11/01/2024 05/01/2024, 12/23, 10/15/2023, Additional history exists Albumin/Creatinine Ratio 01/07/2025 024, 03/09/2023, 12/22/2022, Additional history exists CKD HGB USE SMARTSET 09180 01/07/202501/07, 01/08/2024, 10/15/2023, Additional history exists TSH [...] this encounter Medical Devices Implanted Type Area Precision Machinist Device Identifier Shelf Expiration Date Model / Serial / Lot Cath Roselia Single Lumen - [id number] Implanted:Qty : 1 on 03/12/2008 at OR [facility] Left: Chest [facility] *DO NOT USE* 07/25/2012 21-4053-24 / / [id number] Sut Steel 6 M654g - [id number] Implanted:Qty : 1 on 11/01/2010 at OR [facility] N/A: Chest DO NOT USE M654G / / Sut Steel 6 M654g - [id number] Implanted:Qty : 1 on 11/01/2010 at OR [facility] N/A: Chest DO NOT USE M654G / / Valve Tarsha Aortic [id number] - [id number] Implanted:Qty : 1 on 11/01/2010 at OR [facility] N/A: Heart [employer] 05/20/2012 2800TFX-25 / / [id number] Description:[email or web address] Mesh Soft 40g34pc - [id number] Implanted:Qty : 1 on 10/10/2019 by Gigi Hendrickson MD at OR [facility] N/A: Abdomen CR BARD : DAVOL [id number] 05/21/2024 [id number] / / [id number] Lens 22.5 Sn60wf - [id number] - [id number] Implanted:Qty : 1 on 09/15/2020 by Cece Roland MD at [facility] Right: Eye IVA : SURGICAL [id number] 05/13/2025 SN60 WF.225 / [id number] / [id number] Lens 21.5 Sn60wf - [id number] - [id number] Implanted:Qty : 1 on 12/19/2023 by Ramsey Burnett DO at OR [facility] Left: Eye IVA : SURGICAL 12/03/2024 SN60WF.2 15 / [id number] / documented as of this encounter [...] statute hierarchy) Jovita Ovalle Adult Child Health Tool Machine Set Up Operator resentative (appointed verbally by patient or by statute hierarchy) Care Teams Assorter Laundry Relationship Specialty Start Date End Date Gregory Rausch MD [address] [place] [address] PCP - General Family Medicine 02/12/20 documented as of this encounter
--- OUTSIDE RECORDS SUMMARY | 2024-10-02 03:27 | External Medical Summary | Summary of Care ---
Author Name Unknown Organization [facility] Address [address] [place] [address] Phone [phone] Care Team Providers Care Manufacturing Electrician Name Role Phone Gregory Rausch MD Primary Care Provider [phone] Reason for Visit * Reason Comments Dosage Adjustment Via Phone (anticoag Cl inic) Encounter Details Date Type Department Care Team (Late st Contact Info) Description 07/08/2024 6:10 PM EDT Pharmacy Pharmacy, [facility] [address] [facility] [place] [address] Pharmacist1, [facility] [address] [facility] [place] [address] Type 2 diabetes mellitus with diabetic cataract, with long-term current use of insulin ([facility])* Allergies Active Allergy Reactions Criticality Noted Date [...] a week. 9 mL 1 06/16/2024 Active Mcnznfnrgb-Mgomoqz-D affeine 50-325-40 MG Oral Capsule (Fiorinal)Indication s:Acute [...] morning. 18 mL 3 06/20/2024 Active Klayesta 992092 UNIT/GM External Powder (Nystatin)Indication s:Candidal intertrigo APPLY [...] failure with preserved ejection fraction ([facility]),Palpitations,H ypomagnesemia One tablet by mouth [...] eye 09/28/2020 Coronary artery disease invo lving [place] coronary artery of [place] heart without angina pectoris 12/16/2019 Last [...] 12/21/2016 Diabetes mellitus 01/05/2014 12/21/2016 LEYVA RESEARCH OTHER*[id number] 01/05/2014 12/21/2016 Axillary pain 11/03/2013 12/21/2016 Obesity, [...] FOLLOWING SURGERY, UNSPECIFI ED ([facility] BSO 08/25/2011) 08/26/2011 12/21/2016 ADVANCE [...] Medical Record [facility] V710 Clinical Trial*[id number] 12/22/2010 04/14/2011 S/P aortic valve replacement 12/01/2010 08/26/2011 S/P AORTIC VALVE REPLACEMENT - #25 pericardial Hernandez valve 11/01/2010 06/28/2018 Overview: Aortic valve replacement with #25 pericardial Hernandez valve, model 2800TFX, serial number [id number] (Dr. Walker) [facility] V710 Clinical Trial*[id number] 10/18/2010 11/21/2010 Type 2 diabetes mellitus wit [...] PPD 10/26/2019,10/17/2019 Pneumococcal Conjugate Vacci ne, 20-valent (Dxuvpar72) 06/22/2023 Pneumococcal Polysaccharide PPV23 (Pneumovax) 01/02/2008 Seasonal [...] as of this encounter Progress Notes * Nicole Casey PHARM Tech - 07/08/2024 8:14 AM EDT Patient Phone Numbers Spoke with patient to schedule MTDM appointment for DM management. Appointment scheduled as noted below. 07/15/2024 Thank you, Nicole Casey Advertising Sales Manager [facility] 07/08/2024, 8:14 AM documented in this encounter Plan of Treatment Upcoming Encounters Date Type Department Care Team (Late st Contact Info) Description 07/15/2024 11:30 AM EDT Office Visit Pharmacy, [facility] [address] [place] [address] [address] Pharmacist1, [facility] [address] [place] [address] 07/16/2024 2:30 PM EDT Hospital Encounter ENDO [facility], Endoscopy Room [facility] [address] [place] [phone] Rajinder Wheeler MD [address] [place] [address] 07/16/2024 2:30 PM EDT - 07/16/2024 3:00 PM EDT Surgery ENDO [facility], Endoscopy Room [facility] [address] [place] [phone] Rajinder Wheeler MD [address] [place] [address] COLONOSCOPY FLEXIBLE PROXIMAL DIAGNOSTIC 07/21/2024 2:00 PM EDT Scheduled Telephone [facility], [facility] [address] [facility] [place] [address] Lakesha King, RDN [address] [place] [address] 07/31/2024 11:15 AM EST Office Visit Ophthalmology, [facility] [address] [place] [address] Ramsey Burnett, DO [address] [place] [address] 08/12/2024 9:20 AM EST Office Visit Family [facility] [address] [place] [address] Gregory Rausch MD [address] [place] [address] 08/26/2024 9:00 AM EST Office Visit Pharmacy, [facility] [address] [facility] [place] [address] Pharmacist1, [facility] [address] [facility] [place] [address] 11/03/2024 11:00 AM EST Office Visit Sleep Disorders Ctr [facility] [address] [place] [phone] Christina Birch, [address] [place] [address] 11/04/2024 9:30 AM EST Office Visit Gastroenterology, [facility] [address] [place] [address] Tia Taylor CRNP [address] [place] [address] Scheduled Procedures Name Priority Associated Diagnoses Date/Ti [...] 10/25/2021, 02/16/2021, 01/18/2021 CKD PHOS USE SMARTSET 97857 06/18/202405/26, 06/16/2023, 06/15/2023, Additional history exists HbA1c 08/01/2024 01/30/2024, 08/25, 07/31/2023, Additional history exists Diabetic Eye Exam 09/13/2024 09/13/2023, , 09/13/2023, Additional history exists B-12 09/18/2024 09/18/2023, 08/24, 2020, Additional history exists GFR 11/01/2024 05/01/2024, 12/23, 10/15/2023, Additional history exists Albumin/Creatinine Ratio 01/07/2025 024, 03/09/2023, 12/22/2022, Additional history exists CKD HGB USE SMARTSET 16104 01/07/202501/07, 01/08/2024, 10/15/2023, Additional history exists TSH [...] this encounter Medical Devices Implanted Type Area Supervisory Examiner Device Identifier Shelf Expiration Date Model / Serial / Lot Cath Roselia Single Lumen - [id number] Implanted:Qty : 1 on 03/12/2008 at [facility] Left: Chest [facility] *DO NOT USE* 07/25/2012 21-4053-24 / / [id number] Sut Steel 6 M654g - [id number] Implanted:Qty : 1 on 11/01/2010 at OR [facility] N/A: Chest DO NOT USE M654G / / Sut Steel 6 M654g - [id number] Implanted:Qty : 1 on 11/01/2010 at OR [facility] N/A: Chest DO NOT USE M654G / / Valve Tarsha Aortic [id number] - [id number] Implanted:Qty : 1 on 11/01/2010 at OR [facility] N/A: Heart [employer] DANIEL 05/20/2012 2800TFX-25 / / [id number] Description:[email or web address] Mesh Soft 81t34nc - [id number] Implanted:Qty : 1 on 10/10/2019 by Gigi Hendrickson MD at OR [facility] [place] [place] N/A: Abdomen CR BARD : DAVOL [id number] 05/21/2024 [id number] / / [id number] Lens 22.5 Sn60wf - [id number] - [id number] Implanted:Qty : 1 on 09/15/2020 by Renaldo Cook, Cece Acosta MD at OR [facility] Right: Eye IVA : SURGICAL [id number] 05/13/2025 SN60 WF.225 / [id number] / [id number] Lens 21.5 Sn60wf - [id number] - [id number] Implanted:Qty : 1 on 12/19/2023 by Ramsey Burnett DO at OR [facility] Left: Eye IVA : SURGICAL 12/03/2024 SN60WF.2 15 / [id number] / documented as of this encounter Visit Diagnoses Diagnosis Type 2 diabetes mellitus with diabetic cataract, with long-term current use of insulin (HCC)- Primary Pancolitis (HCC) [place] ulcerative (chronic) colitis documented in this encounter [...] statute hierarchy) Jovita Ovalle Adult Child Health Lining Setter resentative (appointed verbally by patient or by statute hierarchy) [email or web address] Care Teams Manufacturing Electrician Relationship Specialty Start Date End Date Gregory Rausch MD [address] [place] [address] PCP - General Family Medicine 02/12/20 documented as of this encounter
--- OUTSIDE RECORDS SUMMARY | 2024-10-02 03:27 | External Medical Summary | Summary of Care ---
Author Name Unknown Organization [facility] Address [address] [place] [address] Phone [phone] Care Team Providers Care Superintendent Schools Name Role Phone Gregory Rausch MD Primary Care Provider [phone] [phone] Encounter Details Date Type Department Care Team (Late st Contact Info) Description 06/05/2024 Result Scan Unspecified Department <No scans attached> Allergies Active Allergy Reactions Criticality Noted Date Comments Adhesive Tape 07/02/2017 Can tolerate band-aids Glycerin Other (Please comment) 03/12/2008 Topical agents with glycein-burning & itching Lactose 12/09/2014 Dairy - gas Lisinopril Cough 01/21/2010 Monosodium Glutamate Edema Other 03/12/2008 Hands and feet Penicillins Rash 11/14/2007 documented as of this encounter (statuses as of 07/01/2024) Medications Medication Sig Dispensed Refills Start Date [...] Capsules by mouth in the morning. Active MissionlyTouch Verio In Vitro Strip (Glucose Blood) Use [...] as of this encounter (statuses as of 07/01/2024) Active Problems Problem Noted Date Diagnosed Date [...] eye 09/28/2020 Coronary artery disease invo lving torres martinez coronary artery of torres martinez heart without angina pectoris 12/16/2019 Last Assessment [...] as of this encounter (statuses as of 07/01/2024) Resolved Problems Problem Noted Date Diagnosed Date [...] 12/21/2016 Diabetes mellitus 01/05/2014 12/21/2016 LEYVA RESEARCH OTHER*[id number] 01/05/2014 12/21/2016 Axillary pain 11/03/2013 12/21/2016 Obesity, [...] SURGERY, UNSPECIFI ED ([facility] BSO 08/25/2011) 08/26/2011 12/21/2016 ADVANCE DIRECTIVE INFORMATION 04/17/2011 12/21/2016 Overview: Yes, Patient instructed to provide copy of advance directive for provider to review and to be scanned into Electronic Medical Record ADVANCE DIRECTIVE INFORMATION 03/01/2011 12/21/2016 Overview: Yes, Patient instructed to provide copy of advance directive for provider to review and to be scanned into Electronic Medical Record [facility] V710 Clinical Trial*[id number] 12/22/2010 04/14/2011 S/P aortic valve replacement 12/01/2010 08/26/2011 S/P AORTIC VALVE REPLACEMENT - #25 pericardial Mc valve 11/01/2010 06/28/2018 Overview: Aortic valve replacement with #25 pericardial Mc valve, model 2800TFX, serial number [id number] (Dr. Walker) [facility] V710 Clinical Trial*[id number] 10/18/2010 11/21/2010 Type 2 diabetes mellitus wit [...] as of this encounter (statuses as of 07/01/2024) Immunizations Name Administration Dates Next Due COVID-19 mRNA, LNP-s, No Pre serve, 2-Dose Series (Moderna) 10/25/2021,02/16/2021,01/18/2021 HEP A - Hepatitis A (Adult > 18 yrs) 06/07/2018, 12/05/2017 Hepatitis B, 20+ yrs 06/07/2018,01/08/20 18,12/05/2017,06/15,10/27/2013,09/12/2013 PPD 10/26/2019,10/17/2019 Pneumococcal Conjugate Vacci ne, 20-valent ([id number]) 06/22/2023 Pneumococcal Polysaccharide PPV23 (Pneumovax) 01/02/2008 Seasonal [...] No 04/08/2024 Does the household have a tuba city regional health care corporationlar source of income? (Household - for ages [...] Team (Late st Contact Info) Description 07/08/2024 11:15 AM EDT Hospital Encounter ENDO [facility], Endoscopy Room [facility] [address] [facility] [place] [phone] Ratna Lopez MD [address] [place] [address] 07/08/2024 11:15 AM EDT - 07/08/2024 11:45 AM EDT Surgery ENDO [facility], Endoscopy Room [facility] [address] [facility] [place] [phone] Ratna Lopez MD 132 [facility] [place] [address] COLONOSCOPY FLEXIBLE PROXIMAL DIAGNOSTIC 07/08/2024 6:10 PM EDT Pharmacy Pharmacy, [facility] [address] [facility] [place] [address] Pharmacist1, [facility] [address] [facility] [place] [address] 07/21/2024 2:00 PM EDT Scheduled Telephone [facility], [facility] [address] [facility] [place] [address] Lakesha King, MITCHELLN [address] [facility] [place] [address] 07/31/2024 11:15 AM EST Office Visit Ophthalmology, [facility] [address] [facility] [place] [address] Ramsey Burnett, DO [address] [facility] [place] [address] 08/12/2024 9:20 AM EST Office Visit Family Practice [facility] [address] [facility] [place] [address] Gregory Rausch MD [address] [place] [address] 11/03/2024 11:00 AM EST Office Visit Sleep Disorders Ctr [facility] [address] [place] [phone] Christina Birch DO [address] [place] [address] 11/04/2024 9:30 AM EST Office Visit Gastroenterology, [facility] [address] [place] [address] Tia Taylor CRNP [address] [place] [address] Scheduled Procedures Name Priority Associated Diagnoses Date/Ti me COLONOSCOPY FLEXIBLE PROXIMA L DIAGNOSTIC Pancolitis (HCC) 07/08/2024 11:15 AM EDT COLONOSCOPY FLEXIBLE PROXIMA L DIAGNOSTIC [...] 10/25/2021, 02/16/2021, 01/18/2021 CKD PHOS USE SMARTSET 99238 06/18/202405/26, 06/16/2023, 06/15/2023, Additional history exists HbA1c 08/01/2024 01/30/2024, 08/25, 07/31/2023, Additional history exists Diabetic Eye Exam 09/13/2024 09/13/2023, , 09/13/2023, Additional history exists B-12 09/18/2024 09/18/2023, 08/24, 2020, Additional history exists GFR 11/01/2024 05/01/2024, 12/23, 10/15/2023, Additional history exists Albumin/Creatinine Ratio 01/07/2025 024, 03/09/2023, 12/22/2022, Additional history exists CKD HGB USE SMARTSET 89989 01/07/202501/07, 01/08/2024, 10/15/2023, Additional history exists TSH [...] this encounter Medical Devices Implanted Type Area Digital Production Manager Device Identifier Shelf Expiration Date Model / Serial / Lot Cath Roselia Single Lumen - [id number] Implanted:Qty : 1 on 03/12/2008 at OR [facility] Left: Chest [facility] *DO NOT USE* 07/25/2012 21-4053-24 / / [id number] Sut Steel 6 M654g - [id number] Implanted:Qty : 1 on 11/01/2010 at OR [facility] N/A: Chest DO NOT USE M654G / / Sut Steel 6 M654g - [id number] Implanted:Qty : 1 on 11/01/2010 at OR [facility] N/A: Chest DO NOT USE M654G / / Valve Tarsha Aortic [id number] - [id number] Implanted:Qty : 1 on 11/01/2010 at OR [facility] N/A: Heart MC [employer] DANIEL 05/20/2012 2800TFX-25 / / [id number] Description:[email or web address] Mesh Soft 16w70fs - [id number] Implanted:Qty : 1 on 10/10/2019 by Gigi Hendrickson MD at OR [facility] [place] N/A: Abdomen CR BARD : DAVOL [id number] 05/21/2024 [id number] / / [id number] Lens 22.5 Sn60wf - [id number] - [id number] Implanted:Qty : 1 on 09/15/2020 by Renaldo Cook, Cece Acosta MD at OR [facility] Right: Eye IVA : SURGICAL [id number] 05/13/2025 SN60 WF.225 / [id number] / [id number] Lens 21.5 Sn60wf - [id number] - [id number] Implanted:Qty : 1 on 12/19/2023 by Ramsey Burnett DO at OR [facility] Left: Eye IVA : SURGICAL 12/03/2024 SN60WF.2 15 / [id number] / documented as of this encounter Procedures Procedure Name Priority Date/Time Associated Diagnosis Comments OUTSIDE LAB RESULTS 06/05/2024 documented in this encounter Results * OUTSIDE LAB RESULTS (06/05/2024) 06/05/2024 No Physician Data Unknown LABORATORY documented in this encounter Advance Directives * [...] statute hierarchy) Jovita Ovalle Adult Child Health Medicaid Billing Clerk resentative (appointed verbally by patient or by statute hierarchy) [email or web address] Care Teams Superintendent Schools Relationship Specialty Start Date End Date Gregory Rausch MD [address] [place] [address] PCP - General Family Medicine 02/12/20 documented as of this encounter
--- OUTSIDE RECORDS SUMMARY | 2024-10-02 03:27 | External Medical Summary | Summary of Care ---
Author Name Unknown Organization [facility] Address [address] [place] [address] Phone [phone] Care Team Providers Care Annealing Operator Name Role Phone Gregory Rausch MD Primary Care Provider [phone] Reason for Visit * Reason Onset Date Comments Preop Pt Assessment 07/02/2024 Encounter Details Date Type Department Care Team (Late st Contact Info) Description 07/02/2024 Telephone Pre Surgery Center, [facility] [address] [facility] [place] [address] Ratna Lopez MD [facility] [id number] Preop Pt Assessment Allergies Active Allergy Reactions Criticality Noted Date [...] :DM type 2, not at goal ([facility]) 3 every 15 minutes until [...] a week. 9 mL 1 06/16/2024 Active Hegcrovwfh-Bpfgbck-R affeine 50-325-40 MG Oral Capsule (Fiorinal)Indication s:Acute [...] of insulin ([facility]) Inject 36 Units under the skin in the morning. 18 mL 3 06/20/2024 Active Klayesta 031158 UNIT/GM External Powder (Nystatin)Indication s:Candidal intertrigo APPLY [...] heart failure with preserved ejection fraction ([facility]),Palpitations,H ypomagnesemia One tablet by mouth [...] eye 09/28/2020 Coronary artery disease invo lving jamul coronary artery of jamul heart without angina pectoris 12/16/2019 Last Assessment [...] 12/21/2016 Diabetes mellitus 01/05/2014 12/21/2016 LEYVA RESEARCH OTHER*[id number] 01/05/2014 12/21/2016 Axillary pain 11/03/2013 12/21/2016 Obesity, [...] 09/201008/26/2011 12/21/2016 FOLLOWING SURGERY, UNSPECIFI ED ([facility] BSO 08/25/2011) 08/26/2011 12/21/2016 ADVANCE DIRECTIVE INFORMATION 04/17/2011 12/21/2016 Overview: Yes, Patient instructed to provide copy of advance directive for provider to review and to be scanned into Electronic Medical Record ADVANCE DIRECTIVE INFORMATION 03/01/2011 12/21/2016 Overview: Yes, Patient instructed to provide copy of advance directive for provider to review and to be scanned into Electronic Medical Record [facility] V710 Clinical Trial*[id number] 12/22/2010 04/14/2011 S/P aortic valve replacement 12/01/2010 08/26/2011 S/P AORTIC VALVE REPLACEMENT - #25 pericardial Mc valve 11/01/2010 06/28/2018 Overview: Aortic valve replacement with #25 pericardial Mc valve, model 2800TFX, serial number [id number] (Dr. Walker) [facility] V710 Clinical Trial*[id number] 10/18/2010 11/21/2010 Type 2 diabetes mellitus wit [...] PPD 10/26/2019,10/17/2019 Pneumococcal Conjugate Vacci ne, 20-valent (Ibjclqc31) 06/22/2023 Pneumococcal Polysaccharide PPV23 (Pneumovax) 01/02/2008 Seasonal [...] Description 07/08/2024 6:10 PM EDT Pharmacy Pharmacy, [facility] [place] [address] [facility] [place] [address] Pharmacist1, [facility] [address] [place] [address] 07/15/2024 11:30 AM EDT [place] [facility] [place] [address] [facility] [place] [address] Pharmacist1, [facility] [address] [place] [address] 07/16/2024 2:30 PM EDT Hospital Encounter ENDO [facility], Endoscopy Room [facility] [address] [place] [phone] Rajinder Wheeler MD [address] [place] [address] 07/16/2024 2:30 PM EDT - 07/16/2024 3:00 PM EDT Surgery ENDO [facility], Endoscopy Room [facility] [address] [place] [phone] Rajinder Wheeler MD [address] [place] [address] COLONOSCOPY FLEXIBLE PROXIMAL DIAGNOSTIC 07/21/2024 2:00 PM EDT Scheduled Telephone [facility], [facility] [address] [facility] [place] [address] IlanLakesha mauricio, RDN [address] [place] [address] 07/31/2024 11:15 AM EST Office Visit Ophthalmology, [facility] [address] [facility] [place] [address] Ramsey Burnett, DO [address] [facility] [place] [address] 08/12/2024 9:20 AM EST Office Visit Family Practice [facility] [address] [facility] [place] [address] Gregory Rausch MD [address] [facility] [place] [address] 08/26/2024 9:00 AM EST Office Visit Pharmacy, [facility] [address] [facility] [place] [address] Pharmacist1, [facility] [address] [facility] [place] [address] 11/03/2024 11:00 AM EST Office Visit Sleep Disorders Ctr [facility] [address] [facility] [place] [phone] Christina Birch, DO [address] [facility] [place] [address] 11/04/2024 9:30 AM EST Office Visit Gastroenterology, [facility] [address] [place] [address] Tia Taylor CRNP [address] [place] [address] Scheduled Procedures Name Priority Associated Diagnoses Date/Ti [...] 10/25/2021, 02/16/2021, 01/18/2021 CKD PHOS USE SMARTSET 06712 06/18/202405/26, 06/16/2023, 06/15/2023, Additional history exists HbA1c 08/01/2024 01/30/2024, 08/25, 07/31/2023, Additional history exists Diabetic Eye Exam 09/13/2024 09/13/2023, , 09/13/2023, Additional history exists B-12 09/18/2024 09/18/2023, 08/24, 2020, Additional history exists GFR 11/01/2024 05/01/2024, 12/23, 10/15/2023, Additional history exists Albumin/Creatinine Ratio 01/07/2025 024, 03/09/2023, 12/22/2022, Additional history exists CKD HGB USE SMARTSET 83680 01/07/202501/07, 01/08/2024, 10/15/2023, Additional history exists TSH [...] this encounter Medical Devices Implanted Type Area It Associate Device Identifier Shelf Expiration Date Model / Serial / Lot Cath Roselia Single Lumen - [id number] Implanted:Qty : 1 on 03/12/2008 at OR [facility] Left: Chest [facility] *DO NOT USE* 07/25/2012 21-4053-24 / / [id number] Sut Steel 6 M654g - [id number] Implanted:Qty : 1 on 11/01/2010 at OR [facility] N/A: Chest DO NOT USE M654G / / Sut Steel 6 M654g - [id number] Implanted:Qty : 1 on 11/01/2010 at OR [facility] N/A: Chest DO NOT USE M654G / / Valve Tarsha Aortic [id number] - [id number] Implanted:Qty : 1 on 11/01/2010 at OR [facility] N/A: Heart [employer] DANIEL 05/20/2012 2800TFX-25 / / [id number] Description:[email or web address] Mesh Soft 25z65va - [id number] Implanted:Qty : 1 on 10/10/2019 [place] Ggii Hendrickson [place] [facility] [place] Abdomen CR BARD : DAVOL [id number] 05/21/2024 [id number] / / [id number] Lens 22.5 Sn60wf - [id number] - [id number] Implanted:Qty : 1 on 09/15/2020 by Renaldo Cook, Cece Acosta MD at OR [facility] Right: Eye IVA : SURGICAL [id number] 05/13/2025 SN60 WF.225 / [id number] / [id number] Lens 21.5 Sn60wf - [id number] - [id number] Implanted:Qty : 1 on 12/19/2023 by Ramsey Burnett DO at OR [facility] Left: Eye IVA : SURGICAL 12/03/2024 SN60WF.2 15 / [id number] / documented as of this encounter [...] statute hierarchy) Jovita Ovalle Adult Child Health Silk Hanger resentative (appointed verbally by patient or by statute hierarchy) [email or web address] Care Teams Annealing Operator Relationship Specialty Start Date End Date Gregory Rausch MD [address] [place] [address] PCP - General Family Medicine 02/12/20 documented as of this encounter
--- OUTSIDE RECORDS SUMMARY | 2024-10-02 03:28 | External Medical Summary | Summary of Care ---
Author Name Unknown Organization [facility] Address [address] [place] [address] Phone [phone] Care Team Providers Care Top Screw Name Role Phone Gregory Rausch MD Primary Care Provider [phone] Reason for Visit * Reason Onset Date Comments Patient Instructions 06/30/2024 Encounter Details Date Type Department Care Team (Late st Contact Info) Description 06/30/2024 Telephone Gastroenterology, [facility] [address] [facility] [address] Ratna [facility] MD 132 [facility] [place] [address] Patient Instructions Allergies Active Allergy Reactions Criticality Noted Date Comments Adhesive Tape 07/02/2017 Can tolerate band-aids Glycerin Other (Please comment) 03/12/2008 Topical agents with glycein-burning & itching Lactose 12/09/2014 Dairy - gas Lisinopril Cough 01/21/2010 Monosodium Glutamate Edema Other 03/12/2008 Hands and feet Penicillins Rash 11/14/2007 documented as of this encounter (statuses as of 06/30/2024) Medications Medication Sig Dispensed Refills Start Date [...] a week. 9 mL 1 06/16/2024 Active Ohebkagnqw-Rxqupkl-M affeine 50-325-40 MG Oral Capsule (Fiorinal)Indication s:Acute [...] ([facility]) Inject 36 Units under the skin in the morning. 18 mL 3 06/20/2024 Active Klayesta 396807 UNIT/GM External Powder (Nystatin)Indication s:Candidal intertrigo APPLY [...] ejection fraction ([facility]),Palpitations,H ypomagnesemia One tablet by mouth daily in the morning 90 Tablet 3 06/25/2024 Active documented as of this encounter (statuses as of 06/30/2024) Active Problems Problem Noted Date Diagnosed Date [...] as of this encounter (statuses as of 06/30/2024) Resolved Problems Problem Noted Date Diagnosed Date [...] 12/21/2016 Diabetes mellitus 01/05/2014 12/21/2016 LEYVA RESEARCH OTHER*[id number] 01/05/2014 12/21/2016 Axillary pain 11/03/2013 12/21/2016 Obesity, [...] cath 09/201008/26/2011 12/21/2016 FOLLOWING SURGERY, UNSPECIFI ED ([facility] BSO 08/25/2011) 08/26/2011 12/21/2016 ADVANCE DIRECTIVE INFORMATION 04/17/2011 12/21/2016 Overview: Yes, Patient instructed to provide copy of advance directive for provider to review and to be scanned into Electronic Medical Record ADVANCE DIRECTIVE INFORMATION 03/01/2011 12/21/2016 Overview: Yes, Patient instructed to provide copy of advance directive for provider to review and to be scanned into Electronic Medical Record [facility] V710 Clinical Trial*[id number] 12/22/2010 04/14/2011 S/P aortic valve replacement 12/01/2010 08/26/2011 S/P AORTIC VALVE REPLACEMENT - #25 pericardial Mc valve 11/01/2010 06/28/2018 Overview: Aortic valve replacement with #25 pericardial Mc valve, model 2800TFX, serial number [id number] (Dr. Walker) [facility] V710 Clinical Trial*[id number] 10/18/2010 11/21/2010 Type 2 diabetes mellitus wit [...] as of this encounter (statuses as of 06/30/2024) Immunizations Name Administration Dates Next Due COVID-19 mRNA, LNP-s, No Pre serve, 2-Dose Series (Moderna) 10/25/2021,02/16/2021,01/18/2021 HEP A - Hepatitis A (Adult > 18 yrs) 06/07/2018, 12/05/2017 Hepatitis B, 20+ yrs 06/07/2018,01/08/20 18,12/05/2017,06/15,10/27/2013,09/12/2013 PPD 10/26/2019,10/17/2019 Pneumococcal Conjugate Vacci ne, 20-valent (Skxxfcl56) 06/22/2023 Pneumococcal Polysaccharide PPV23 (Pneumovax) 01/02/2008 Seasonal [...] 07/08/2024 11:15 AM EDT Hospital Encounter ENDO [facility], Endoscopy Room [facility] [address] [place] [phone] Ratna Lopez MD [address] [place] [address] 07/08/2024 11:15 AM EDT - 07/08/2024 11:45 AM EDT Surgery ENDO [facility], Endoscopy Room [facility] [address] [place] [phone] Ratna Lopez MD [address] [place] [address] COLONOSCOPY FLEXIBLE PROXIMAL DIAGNOSTIC 07/08/2024 6:10 PM EDT Pharmacy Pharmacy, [facility] [address] [place] [address] Pharmacist1, [facility] [address] [place] [address] 07/21/2024 2:00 PM EDT Scheduled Telephone [facility], [facility] [address] [facility] [place] [address] Lakesha King, RDN [address] [facility] [place] [address] 07/31/2024 11:15 AM EST Office Visit Ophthalmology, [facility] [address] [facility] [place] [address] Ramsey Burnett, DO [address] [place] [address] 08/12/2024 9:20 AM EST Office Visit Family Practice [facility] [address] [facility] [place] [address] Gregory Rausch MD [facility] [place] [address] 11/03/2024 11:00 AM EST Office Visit Sleep Disorders Ctr [facility] [address] [place] [phone] Christina Birch, DO [facility] [place] [address] 11/04/2024 9:30 AM EST Office Visit Gastroenterology, [facility] [address] [facility] [place] [address] Tia Taylor CRNP [facility] [place] [address] Scheduled Procedures Name Priority Associated Diagnoses Date/Ti [...] 10/25/2021, 02/16/2021, 01/18/2021 CKD PHOS USE SMARTSET 67316 06/18/202405/26, 06/16/2023, 06/15/2023, Additional history exists HbA1c 08/01/2024 01/30/2024, 08/25, 07/31/2023, Additional history exists Diabetic Eye Exam 09/13/2024 09/13/2023, , 09/13/2023, Additional history exists B-12 09/18/2024 09/18/2023, 08/24, 2020, Additional history exists GFR 11/01/2024 05/01/2024, 12/23, 10/15/2023, Additional history exists Albumin/Creatinine Ratio 01/07/2025 024, 03/09/2023, 12/22/2022, Additional history exists CKD HGB USE SMARTSET 71024 01/07/202501/07, 01/08/2024, 10/15/2023, Additional history exists TSH [...] this encounter Medical Devices Implanted Type Area Job Change Crew Member Device Identifier Shelf Expiration Date Model / Serial / Lot Cath Roselia Single Lumen - [id number] Implanted:Qty : 1 on 03/12/2008 at OR [facility] Left: Chest [facility] *DO NOT USE* 07/25/2012 21-4053-24 / / [id number] Sut Steel 6 M654g - [id number] Implanted:Qty : 1 on 11/01/2010 at OR [facility] N/A: Chest DO NOT USE M654G / / Sut Steel 6 M654g - [id number] Implanted:Qty : 1 on 11/01/2010 at OR [facility] N/A: Chest DO NOT USE M654G / / Valve Tarsha Aortic [id number] - [id number] Implanted:Qty : 1 on 11/01/2010 at OR [facility] N/A: Heart [employer] DANIEL 05/20/2012 2800TFX-25 / / [id number] Description:[email or web address] Mesh Soft 40q73ut - [id number] Implanted:Qty : 1 on 10/10/2019 by Gigi Hendrickson MD at OR [facility] [place] N/A: Abdomen CR BARD : DAVOL [id number] 05/21/2024 [id number] / / [id number] Lens 22.5 Sn60wf - [id number] - [id number] Implanted:Qty : 1 on 09/15/2020 by Renaldo Cook, Cece Acosta MD at OR [facility] Right: Eye IVA : SURGICAL [id number] 05/13/2025 SN60 WF.225 / [id number] / [id number] Lens 21.5 Sn60wf - [id number] - [id number] Implanted:Qty : 1 on 12/19/2023 by Ramsey Burnett DO at OR [facility] Left: Eye IVA : SURGICAL 12/03/2024 SN60WF.2 15 / [id number] / documented as of this encounter [...] statute hierarchy) Jovita Ovalle Adult Child Health Supervisor Trust Accounts resentative (appointed verbally by patient or by statute hierarchy) [email or web address] Information [email or web address] Care Teams Top Screw Relationship Specialty Start Date End Date Gregory Rausch MD [address] [place] [address] PCP - General Family Medicine 02/12/20 documented as of this encounter
--- OUTSIDE RECORDS SUMMARY | 2024-10-02 03:28 | External Medical Summary | Summary of Care ---
Author Name Unknown Organization [facility] Address [address] [place] [address] Phone [phone] Care Team Providers Care Briquette Machine Operator Name Role Phone Gregory Rausch MD Primary Care Provider [phone] Reason for Visit * Reason Onset Date Comments Home Monitoring Orders Only 06/19/2024 Encounter Details Date Type Department Care Team (Late st Contact Info) Description 06/19/2024 Home Monitoring Care Coordination [address] [place] [address] Fidelina Baumann MD [address] [place] [address] Hypertension* Allergies Active Allergy Reactions Criticality Noted Date Comments Adhesive Tape 07/02/2017 Can tolerate band-aids Glycerin Other (Please comment) 03/12/2008 Topical agents with glycein-burning & itching Lactose 12/09/2014 Dairy - gas Lisinopril Cough 01/21/2010 Monosodium Glutamate Edema Other 03/12/2008 Hands and feet Penicillins Rash 11/14/2007 documented as of this encounter (statuses as of 06/27/2024) Medications Medication Sig Dispensed Refills Start Date [...] pump 1 Kit 5 04/10/20 24 Active Loperamide HCl 2 MG Oral Capsule (Imodium A-D) Take 1 Capsule by mouth 4 times a day as needed for Diarrhea. Active Dificid 200 MG Oral Tablet (Fidaxomicin)Indic ations:C. difficile colitis Take 1 Tablet by mouth in the morning and 1 Tablet before bedtime. 28 Tablet 05/02/20 24 Active Saccharomyces boulardii 250 MG Oral [...] week. 9 mL 1 06/16/20 24 Active Butalbital-Aspirin -Caffeine 50-325-40 MG Oral Capsule (Fiorinal)Indicati ons:Acute intractable tension-type headache Take 1 Capsule by mouth every 4 hours as needed for Headache. 30 Capsule 06/16/20 24 Active Fluticasone Propionate 50 MCG/ACT Nasal Suspension (Flonase)Indicatio ns:Dizziness Administer 2 Sprays into each nostril in the morning. 16 g 3 06/17/20 24 Active Magnesium Oxide -Mg Supplement 400 [...] 2 03/14/20 24 024 Discontinued(Re fill) Nystatin 846152 UNIT/GM External Powder (Nystop)Indication s:Candidal intertrigo APPLY TOPICALLY TO AFFECTED AREA 3 TIMES A DAY. 60 g 1 04/14/20 24 024 Discontinued Vancomycin HCl 125 MG Oral Capsule (Vancocin) 125 mg orally 4 times daily for 2 wks, then 2 x/day x wk, then daily x 1 wk, then every other day for 8 wks 100 Capsule 05/06/20 24 024 Discontinued(Nc dication List Clean Up) Metoprolol Tartrate 50 MG Oral Tablet (Lopressor)Indicat ions:HTN, goal below 130/80 Take 1 Tablet by mouth in the morning and 1 Tablet before bedtime. 180 Tablet 3 05/15/20 24 024 Discontinued(Re fill) documented as of this encounter (statuses as of 06/27/2024) Active Problems Problem Noted Date Diagnosed Date [...] as of this encounter (statuses as of 06/27/2024) Resolved Problems Problem Noted Date Diagnosed Date [...] 12/21/2016 Diabetes mellitus 01/05/2014 12/21/2016 LEYVA RESEARCH OTHER*[id number] 01/05/2014 12/21/2016 Axillary pain 11/03/2013 12/21/2016 Obesity, [...] cath 09/201008/26/2011 12/21/2016 FOLLOWING SURGERY, UNSPECIFI ED ([facility] BSO 08/25/2011) 08/26/2011 12/21/2016 ADVANCE [...] Medical Record [facility] V710 Clinical Trial*[id number] 12/22/2010 04/14/2011 S/P aortic valve replacement 12/01/2010 08/26/2011 S/P AORTIC VALVE REPLACEMENT - #25 pericardial Mc valve 11/01/2010 06/28/2018 Overview: Aortic valve replacement with #25 pericardial Mc valve, model 2800TFX, serial number [id number] (Dr. Walker) [facility] V710 Clinical Trial*[id number] 10/18/2010 11/21/2010 Type 2 diabetes mellitus wit [...] as of this encounter (statuses as of 06/27/2024) Immunizations Name Administration Dates Next Due COVID-19 mRNA, LNP-s, No Pre serve, 2-Dose Series (Moderna) 10/25/2021,02/16/2021,01/18/2021 HEP A - Hepatitis A (Adult > 18 yrs) 06/07/2018, 12/05/2017 Hepatitis B, 20+ yrs 06/07/2018,01/08/20 18,12/05/2017,06/15,10/27/2013,09/12/2013 PPD 10/26/2019,10/17/2019 Pneumococcal Conjugate Vacci ne, 20-valent ([id number]) 06/22/2023 Pneumococcal Polysaccharide PPV23 (Pneumovax) 01/02/2008 Seasonal [...] as of this encounter Progress Notes * Ruth Moreno LPN - 06/27/2024 9:45 AM EDT This encounter will be closed and will proceed with TE so MyG message can be sent * Ruth Moreno LPN - 06/27/2024 9:43 AM EDT Pt did not show for OV with Dr Ibis ESTRADA since unable to reach will send MyG message * Ruth Moreno LPN - 06/25/2024 8:35 AM EDT Pt has OV tomorrow Please have MD discuss as pt has not returned call * Ruth Moreno LPN - 06/23/2024 9:58 AM EDT LMM for pt to return call to discuss * Ruth Moreno LPN - 06/20/2024 9:26 AM EDT LMM to return call to discuss * Fidelina Baumann MD - 06/19/2024 4:14 PM EDT Neph nurse pls call pt/ caregiver to discuss; last cc365 entry was 05/30 Recommend if unable to do daily for cc365 MTM that she continue w/ MTM w/ periodic 3 day logs; sametarget as cc365 CC365 FYI * Paul Klein [facility] Sound Ranging Crewmember - 06/19/2024 11:48 AM EDT Spoke to patients aide (Jennifer) who expressed concerns about patients inability to provide consistent readings and participate in the program. Paul Klein Community Programs Specialist Electronically signed by Paul Klein [facility] Sound Ranging Crewmember at 06/19/2024 11:50 AM EDT documented in this encounter Plan of Treatment Upcoming Encounters Date Type Department Care Team (Late st Contact Info) Description 06/30/2024 10:00 AM EDT Office Visit Gastroenterology, [facility] [address] [facility] [place] [address] Arina Knapp PA-C [address] [place] [address] 07/08/2024 6:10 PM EDT Pharmacy Pharmacy, [facility] [address] [address] Pharmac[address]1, [facility] [address] [facility] [place] [address] 07/21/2024 2:00 PM EDT Scheduled Telephone [facility], [facility] [address] [facility] [place] [address] Fernando Lakesha Jovita, RDN [address] [facility] [place] [address] 07/31/2024 11:15 AM EST Office Visit Ophthalmology, [facility] [address] [facility] [place] [address] Ramsey Burnett, DO [address] [facility] [place] [address] 08/12/2024 9:20 AM EST Office Visit Family Practice [facility] [address] [facility] [place] [address] Gregory Rausch MD [address] [facility] [place] [address] 11/03/2024 11:00 AM EST Office Visit Sleep Disorders [facility] [address] [facility] [place] [phone] Christina Birch DO [address] [facility] [place] [address] 11/04/2024 9:30 AM EST Office Visit Gastroenterology, [facility] [address] [facility] [place] [address] Tia Taylor CRNP [address] [facility] [place] [address] Scheduled Procedures Name Priority Associated Diagnoses Date/Ti [...] 10/25/2021, 02/16/2021, 01/18/2021 CKD PHOS USE SMARTSET 59675 06/18/202405/26, 06/16/2023, 06/15/2023, Additional history exists HbA1c 08/01/2024 01/30/2024, 08/25, 07/31/2023, Additional history exists Diabetic Eye Exam 09/13/2024 09/13/2023, , 09/13/2023, Additional history exists B-12 09/18/2024 09/18/2023, 08/24, 2020, Additional history exists GFR 11/01/2024 05/01/2024, 12/23, 10/15/2023, Additional history exists Albumin/Creatinine Ratio 01/07/2025 024, 03/09/2023, 12/22/2022, Additional history exists CKD HGB USE SMARTSET 14029 01/07/202501/07, 01/08/2024, 10/15/2023, Additional history exists TSH [...] this encounter Medical Devices Implanted Type Area Blood Bank Calendar Control Clerk Device Identifier Shelf Expiration Date Model / Serial / Lot Cath Roselia Single Lumen - [id number] Implanted:Qty : 1 on 03/12/2008 at OR [facility] Left: Chest [facility] *DO NOT USE* 07/25/2012 21-4053-24 / / [id number] Sut Steel 6 M654g - [id number] Implanted:Qty : 1 on 11/01/2010 at OR [facility] N/A: Chest DO NOT USE M654G / / Sut Steel 6 M654g - [id number] Implanted:Qty : 1 on 11/01/2010 at OR [facility] N/A: Chest DO NOT USE M654G / / Valve Tarsha Aortic [id number] - [id number] Implanted:Qty : 1 on 11/01/2010 at OR [facility] N/A: Heart [employer] 05/20/2012 2800TFX-25 / / [id number] Description:[email or web address] Mesh Soft 56w63mr - [id number] Implanted:Qty : 1 on 10/10/2019 by Gigi Hendrickson MD at OR [facility] N/A: Abdomen CR BARD : DAVOL [id number] 05/21/2024 [id number] / / [id number] Lens 22.5 Sn60wf - [id number] - [id number] Implanted:Qty : 1 on 09/15/2020 by Renaldo Cook, Cece Acosta MD at OR [facility] Right: Eye IVA : SURGICAL [id number] 05/13/2025 SN60 WF.225 / [id number] / [id number] Lens 21.5 Sn60wf - [id number] - [id number] Implanted:Qty : 1 on 12/19/2023 by Ramsey Burnett, DO at OR [facility] Left: Eye IVA : SURGICAL 12/03/2024 SN60WF.2 15 / [id number] / documented as of this encounter Visit Diagnoses Diagnosis Hypertension- Primary Unspecified essential hypertension documented in this [...] verbally by patient or by statute hierarchy) Joivta Ovalle Adult Child Health Dye Colorist Dyer resentative (appointed verbally by patient or by statute hierarchy) [email or web address] Care Teams Briquette Machine Operator Relationship Specialty Start Date End Date Gregory Rausch MD [address] [place] [address] PCP - General Family Medicine 02/12/20 documented as of this encounter
--- OUTSIDE RECORDS SUMMARY | 2024-10-02 03:28 | External Medical Summary | Summary of Care ---
Author Name Unknown Organization [facility] Address [address] [place] [address] Phone [phone] Care Team Providers Care Certified Meeting Professional Name Role Phone Gregory Rausch MD Primary Care Provider [phone] Reason for Referral * Evaluate & Treat - Unlimited Visits (Within 30 days (routine)) - Authorized Specialty Diagnoses / Procedures Referred By Bruce wasserman Referred To Contact Psychiatry Diagnoses Schizo affective schizophrenia (HCC) Self [address] STRE[address] ADDRESS AVAILABLE Referral ID Status Reason Start Date Expiration Date Visits Requested Visits Authorized [id number] Authorized Specialty Services Required 06/26/2024 999 999 Question Answer Referral Priority Within 30 days (routine) Where should this appointment be scheduled? [facility] Is this referral for medication management? Yes Reason for Referral Schizophrenia Encounter Details Date Type Department Care Team (Late st Contact Info) Description 06/26/2024 Orders Only Access Center, [facility] [address] [facility] *DO NOT REMOVE THIS DEPARTMENT* [place] [address] Request, External Referral Schizo affective schizophrenia (HCC)* Allergies Active Allergy Reactions Criticality Noted Date Comments Adhesive Tape 07/02/2017 Can tolerate band-aids Glycerin Other (Please comment) 03/12/2008 Topical agents with glycein-burning & itching Lactose 12/09/2014 Dairy - gas Lisinopril Cough 01/21/2010 Monosodium Glutamate Edema Other 03/12/2008 Hands and feet Penicillins Rash 11/14/2007 documented as of this encounter (statuses as of 06/26/2024) Medications Medication Sig Dispensed Refills Start Date [...] type 2, not at goal ([facility]) 3 every 15 minutes until glucose is > 100 mg/dL for hypoglycemia E11.9 100 Tab 3 07/06/2021 Active BTRTouch Verio w/Device Kit Use up to 4 times a day E11.9 1 Kit 02/10/2022 Active BTRTouch Delica Lancets 33G TEST 4 TIMES DAILY [...] Capsules by mouth in the morning. Active BTRTouch Verio In Vitro Strip (Glucose Blood) Use [...] a week. 9 mL 1 06/16/2024 Active Iudcwkasrs-Mldnqvm-G affeine 50-325-40 MG Oral Capsule (Fiorinal)Indication s:Acute [...] insulin ([facility]) Inject 36 Units under the skin in the morning. 18 mL 3 06/20/2024 Active Klayesta 339358 UNIT/GM External Powder (Nystatin)Indication s:Candidal intertrigo APPLY TOPICALLY TO AFFECTED AREA 3 TIMES A DAY 60 g 1 06/23/2024 Active Metoprolol Tartrate 50 MG Oral Tablet (Lopressor)Indicatio ns:HTN, goal below 130/80 TAKE 1 TABLET BY MOUTH IN THE MORNING AND BEFORE BEDTIME 180 Tablet 3 06/22/2024 Active Sulfamethoxazole-Tri methoprim 800-160 MG Oral Tablet (Bactrim DS)Indications:E. coli UTI Take 1 Tablet by mouth in the morning and 1 Tablet before bedtime. Do all this for 3 days. Until gone. 6 Tablet 06/23/2024 10/03/202 4 Active Magnesium Oxide -Mg Supplement 400 (240 Mg) MG Oral Tablet (Mag-Ox)Indications: HTN, goal below 130/80,Chronic heart failure with preserved ejection fraction (HCC),Palpitations,H ypomagnesemia One tablet by mouth daily in the morning 90 Tablet 3 06/25/2024 Active documented as of this encounter (statuses as of 06/26/2024) Active Problems Problem Noted Date Diagnosed Date [...] as of this encounter (statuses as of 06/26/2024) Resolved Problems Problem Noted Date Diagnosed Date [...] 3a chronic kidney disease 03/09/2022 07/2 02/2023 Last Assessment & Plan: Current Status: "Stable" [...] 12/21/2016 Diabetes mellitus 01/05/2014 12/21/2016 LEYVA RESEARCH OTHER*[id number] 01/05/2014 12/21/2016 Axillary pain 11/03/2013 12/21/2016 Obesity, [...] 09/201008/26/2011 12/21/2016 FOLLOWING SURGERY, UNSPECIFI ED ([facility] BSO 08/25/2011) 08/26/2011 12/21/2016 ADVANCE DIRECTIVE INFORMATION 04/17/2011 12/21/2016 Overview: Yes, Patient instructed to provide copy of advance directive for provider to review and to be scanned into Electronic Medical Record ADVANCE DIRECTIVE INFORMATION 03/01/2011 12/21/2016 Overview: Yes, Patient instructed to provide copy of advance directive for provider to review and to be scanned into Electronic Medical Record [facility] V710 Clinical Trial*[id number] 12/22/2010 04/14/2011 S/P aortic valve replacement 12/01/2010 08/26/2011 S/P AORTIC VALVE REPLACEMENT - #25 pericardial Mc valve 11/01/2010 06/28/2018 Overview: Aortic valve replacement with #25 pericardial Mc valve, model 2800TFX, serial number [id number] (Dr. Walker) [facility] V710 Clinical Trial*[id number] 10/18/2010 11/21/2010 Type 2 diabetes mellitus wit [...] to review with endocrinology --has noé--last hgba1c 7/22/22 8.2 --metformin 850mg BID --ozemipic 1mg weekly [...] as of this encounter (statuses as of 06/26/2024) Immunizations Name Administration Dates Next Due COVID-19 mRNA, LNP-s, No Pre serve, 2-Dose Series (Moderna) 10/25/2021,02/16/2021,01/18/2021 HEP A - Hepatitis A (Adult > 18 yrs) 06/07/2018, 12/05/2017 Hepatitis B, 20+ yrs 06/07/2018,01/08/20 18,12/05/2017,06/15,10/27/2013,09/12/2013 PPD 10/26/2019,10/17/2019 Pneumococcal Conjugate Vacci ne, 20-valent ([id number]) 06/22/2023 Pneumococcal Polysaccharide PPV23 (Pneumovax) 01/02/2008 Seasonal [...] 06/30/2024 10:00 AM EDT Office Visit Gastroenterology, [facility] [address] [place] [address] Arina Knapp PA-C [address] [place] [address] 07/08/2024 6:10 PM EDT Pharmacy Pharmacy, [facility] [place] [place] [address] [place] [address] Pharmacist1, [facility] [address] [facility] [place] [address] 07/21/2024 2:00 PM EDT Scheduled Telephone [facility], [facility] [address] [place] [address] Lakesha King, RDN [address] [facility] [place] [address] 07/31/2024 11:15 AM EST Office Visit Ophthalmology, [facility] [address] [place] [address] Ramsey Burnett, DO [address] [facility] [place] [address] 08/12/2024 9:20 AM EST Office Visit Family Practice [facility] [address] [place] [address] Gregory Rausch MD [address] [place] [address] 11/03/2024 11:00 AM EST Office Visit Sleep Disorders [facility] [address] [facility] [place] [phone] Christina Birch, 132 [facility] [place] [address] 11/04/2024 9:30 AM EST Office Visit Gastroenterology, [facility] [address] [place] [address] Tia Taylor CRNP [address] [facility] [place] [address] Scheduled Procedures Name Priority Associated Diagnoses Date/Ti me COLONOSCOPY FLEXIBLE PROXIMAL DIAGNOSTIC Recall History of colon polyps ESOPHAGOGASTRODUODENOSCOPY ( EGD), FLEXIBLE, TRANSORAL, DIAGNOSTIC Recall Cirrhosis (HCC) COLONOSCOPY FLEXIBLE PROXIMAL DIAGNOSTIC Recall Personal history of colonic polyps Scheduled Referrals Name Type Priority Associated Diagnoses Orde r Schedule ADULT/PEDS PSYCHIATRY REFERRAL OP Referral Within 30 days (routine) Schizo affective schizophrenia (HCC) Ordered: 06/26/2024 Health Maintenance Due Date Last Done Comments HIV Screening 1973 Cologuard 12/18/2003 Fecal Occult Blood Test 12/18/2003 Diabetic Foot Exam 2021 2020, 0 12/05/2018, 12/05/2017, Additional history exists DXA Scan 12/18/2023 01/12/2009 COVID-19 Vaccine ( season) 2024 10/25/2021, 02/16/2021, 01/18/2021 CKD PHOS USE SMARTSET 05643 06/18/202405/26, 06/16/2023, 06/15/2023, Additional history exists HbA1c 08/01/2024 01/30/2024, 08/25, 07/31/2023, Additional history exists Diabetic Eye Exam 09/13/2024 09/13/2023, , 09/13/2023, Additional history exists B-12 09/18/2024 09/18/2023, 08/24, 2020, Additional history exists GFR 11/01/2024 05/01/2024, 12/23, 10/15/2023, Additional history exists Albumin/Creatinine Ratio 01/07/2025 024, 03/09/2023, 12/22/2022, Additional history exists CKD HGB USE SMARTSET 32683 01/07/202501/07, 01/08/2024, 10/15/2023, Additional history exists TSH [...] this encounter Medical Devices Implanted Type Area Security Flex Utility Officer Device Identifier Shelf Expiration Date Model / Serial / Lot Cath Roselia Single Lumen - [id number] Implanted:Qty : 1 on 03/12/2008 at OR [facility] Left: Chest [facility] *DO NOT USE* 07/25/2012 21-4053-24 / / [id number] Sut Steel 6 M654g - [id number] Implanted:Qty : 1 on 11/01/2010 at OR [facility] N/A: Chest DO NOT USE M654G / / Sut Steel 6 M654g - [id number] Implanted:Qty : 1 on 11/01/2010 at OR [facility] N/A: Chest DO NOT USE M654G / / Valve Tarsha Aortic [id number] - [id number] Implanted:Qty : 1 on 11/01/2010 at OR [facility] N/A: Heart [employer] 05/20/2012 2800TFX-25 / / [id number] Description:[email or web address] Mesh Soft 83m22ex - [id number] Implanted:Qty : 1 on 10/10/2019 by Gigi Hendrickson MD at OR [facility] N/A: Abdomen CR BARD : DAVOL [id number] 05/21/2024 [id number] / / [id number] Lens 22.5 Sn60wf - [id number] - [id number] Implanted:Qty : 1 on 09/15/2020 by Renaldo Cook, Cece Acosta MD at OR [facility] Right: Eye IVA : SURGICAL [id number] 05/13/2025 SN60 WF.225 / [id number] / [id number] Lens 21.5 Sn60wf - [id number] - [id number] Implanted:Qty : 1 on 12/19/2023 by Ramsey Burnett, DO at OR [facility] Left: Eye IVA : SURGICAL 12/03/2024 SN60WF.2 15 / [id number] / documented as of this encounter Visit Diagnoses Diagnosis Schizo affective schizophrenia (HCC)- Primary Schizoaffective disorder, unspecified condition documented in this encounter Advance Directives * [...] statute hierarchy) Jovita Ovalle Adult Child Health Central Office Supervisor resentative (appointed verbally by patient or by statute hierarchy) Care Teams Certified Meeting Professional Relationship Specialty Start Date End Date Gregory Rausch MD [address] [place] [address] PCP - General Family Medicine 02/12/20 documented as of this encounter
--- OUTSIDE RECORDS SUMMARY | 2024-10-02 03:28 | External Medical Summary | Summary of Care ---
Author Name Unknown Organization [facility] Address [address] [place] [address] Phone [phone] Care Team Providers Care Labor Delivery Specialist Name Role Phone Gregory Rausch MD Primary Care Provider [phone] Reason for Visit * Reason Onset Date Comments Home Monitoring Orders Only 06/19/2024 Encounter Details Date Type Department Care Team (Late st Contact Info) Description 06/19/2024 Home Monitoring Care Coordination [address] [place] [address] Fidelina Baumann MD [address] [place] [address] Hypertension* Allergies Active Allergy Reactions Criticality Noted Date Comments Adhesive Tape 07/02/2017 Can tolerate band-aids Glycerin Other (Please comment) 03/12/2008 Topical agents with glycein-burning & itching Lactose 12/09/2014 Dairy - gas Lisinopril Cough 01/21/2010 Monosodium Glutamate Edema Other 03/12/2008 Hands and feet Penicillins Rash 11/14/2007 documented as of this encounter (statuses as of 06/25/2024) Medications Medication Sig Dispensed Refills Start Date [...] daily. 400 g 2 01/10/20 24 Active Magnesium Oxide -Mg Supplement 400 (240 Mg) MG Oral Tablet (Mag-Ox)Indication s:HTN, goal below 130/80 One tablet by mouth daily in the morning 90 Tablet 3 03/07/20 24 Active Insulin Aspart 100 UNIT/ML Injection Solution (NovoLOG)Indicatio ns:Type 2 diabetes mellitus with hemoglobin A1c goal of less than 7.0% ([facility]) Use up to 50 units per day [...] Active Atorvastatin Calcium 40 MG Oral Tablet (Lipitor)Isabellatio ns:Heart failure, systolic, due to idiopathic cardiomyopathy [...] 2 03/14/20 24 024 Discontinued(Re fill) Nystatin 328264 UNIT/GM External Powder (Nystop)Indication s:Candidal intertrigo APPLY TOPICALLY TO AFFECTED AREA 3 TIMES A DAY. 60 g 1 04/14/20 24 024 Discontinued Vancomycin HCl 125 MG Oral Capsule (Vancocin) 125 mg orally 4 times daily for 2 wks, then 2 x/day x wk, then daily x 1 wk, then every other day for 8 wks 100 Capsule 05/06/20 24 024 Discontinued(De dication List Clean Up) Metoprolol Tartrate 50 MG Oral Tablet (Lopressor)Indicat ions:HTN, goal below 130/80 Take 1 Tablet by mouth in the morning and 1 Tablet before bedtime. 180 Tablet 3 08/22/ 024 Discontinued(Re fill) documented as of this encounter (statuses as of 06/25/2024) Active Problems Problem Noted Date Diagnosed Date [...] as of this encounter (statuses as of 06/25/2024) Resolved Problems Problem Noted Date Diagnosed Date [...] 12/21/2016 Diabetes mellitus 01/05/2014 12/21/2016 LEYVA RESEARCH OTHER*[id number] 01/05/2014 12/21/2016 Axillary pain 11/03/2013 12/21/2016 Obesity, [...] Medical Record [facility] V710 Clinical Trial*[id number] 12/22/2010 04/14/2011 S/P aortic valve replacement 12/01/2010 08/26/2011 S/P AORTIC VALVE REPLACEMENT - #25 pericardial Mc valve 11/01/2010 06/28/2018 Overview: Aortic valve replacement with #25 pericardial Mc valve, model 2800TFX, serial number [id number] (Dr. Walker) [facility] V710 Clinical Trial*[id number] 10/18/2010 11/21/2010 Type 2 diabetes mellitus wit [...] as of this encounter (statuses as of 06/25/2024) Immunizations Name Administration Dates Next Due COVID-19 mRNA, LNP-s, No Pre serve, 2-Dose Series (Moderna) 10/25/2021,02/16/2021,01/18/2021 HEP A - Hepatitis A (Adult > 18 yrs) 06/07/2018, 12/05/2017 Hepatitis B, 20+ yrs 06/07/2018,01/08/20 18,12/05/2017,06/15,10/27/2013,09/12/2013 PPD 10/26/2019,10/17/2019 Pneumococcal Conjugate Vacci ne, 20-valent ([id number]) 06/22/2023 Pneumococcal Polysaccharide PPV23 (Pneumovax) 01/02/2008 Seasonal [...] Progress Notes * Ruth Moreno LPN - 06/25/2024 8:35 [...] as cc365 CC365 FYI * [facility] Patient Observation Assistant - 06/19/2024 11:48 AM EDT Spoke to patients aide (Jennifer) who expressed concerns about patients inability to provide consistent readings and participate in the program. [facility] Programs Specialist Electronically signed by Paul Klein [facility] Patient Observation Assistant at 06/19/2024 11:50 AM EDT documented in this encounter Plan of Treatment Upcoming Encounters Date Type Department Care Team (Late st Contact Info) Description 06/26/2024 9:00 AM EDT Office Visit Nephrology, [facility] [address] [place] [address] Fidelina Baumann MD [address] [place] [address] 06/30/2024 10:00 AM EDT Office Visit Gastroenterology, [facility] [address] [facility] [place] [address] Arina Knapp PA-C [address] [place] [address] 07/08/2024 6:10 PM EDT Pharmacy Pharmacy, [facility] [address] [place] [address] Pharmacist1, [facility] [address] [place] [address] 07/21/2024 2:00 PM EDT Scheduled Telephone [facility], [facility] [address] [facility] [place] [address] Lakesha King, ROBERT [address] [place] [address] 07/31/2024 11:15 AM EST Office Visit Ophthalmology, [facility] [address] [facility] [place] [address] Ramsey Burnett, DO [address] [facility] [place] [address] 08/12/2024 9:20 AM EST Office Visit Family Practice [facility] [address] [facility] [place] [address] Gregory Rausch MD [address] [facility] [place] [address] 11/03/2024 11:00 AM EST Office Visit [facility] C[facility] [address] [facility] [place] [phone] Christina Birch, DO [address] [facility] [place] [address] 11/04/2024 9:30 AM EST Office Visit Gastroenterology, [facility] [address] [facility] [place] [address] Tia Taylor CRNP [address] [facility] [place] [address] Scheduled Procedures Name Priority Associated Diagnoses Date/Ti [...] 10/25/2021, 02/16/2021, 01/18/2021 CKD PHOS USE SMARTSET 78718 06/18/202405/26, 06/16/2023, 06/15/2023, Additional history exists HbA1c 08/01/2024 01/30/2024, 08/25, 07/31/2023, Additional history exists Diabetic Eye Exam 09/13/2024 09/13/2023, , 09/13/2023, Additional history exists B-12 09/18/2024 09/18/2023, 08/24, 2020, Additional history exists GFR 11/01/2024 05/01/2024, 12/23, 10/15/2023, Additional history exists Albumin/Creatinine Ratio 01/07/2025 024, 03/09/2023, 12/22/2022, Additional history exists CKD HGB USE SMARTSET 31635 01/07/202501/07, 01/08/2024, 10/15/2023, Additional history exists TSH [...] encounter Medical Devices Implanted Type Area Metal Weather Stripper Device Identifier Shelf Expiration Date Model / Serial / Lot Cath Roselia Single Lumen - [id number] Implanted:Qty : 1 on 03/12/2008 at OR [facility] Left: Chest [facility] *DO NOT USE* 07/25/2012 21-4053-24 / / [id number] Sut Steel 6 M654g - [id number] Implanted:Qty : 1 on 11/01/2010 at OR [facility] N/A: Chest DO NOT USE M654G / / Sut Steel 6 M654g - [id number] Implanted:Qty : 1 on 11/01/2010 at OR [facility] N/A: Chest DO NOT USE M654G / / Valve Tarsha Aortic [id number] - [id number] Implanted:Qty : 1 on 11/01/2010 at OR [facility] N/A: Heart [employer] DANIEL 05/20/2012 2800TFX-25 / / [id number] Description:[email or web address] Mesh Soft 94b29bc - [id number] Implanted:Qty : 1 on 10/10/2019 by Gigi Hendrickson [place] [facility]: Abdomen CR BARD : DAVOL [id number] 05/21/2024 [id number] / / [id number] Lens 22.5 Sn60wf - [id number] - [id number] Implanted:Qty : 1 on 09/15/2020 by Cece Roladn MD at OR [facility] Right: Eye IVA : SURGICAL [id number] 05/13/2025 SN60 WF.225 / [id number] / [id number] Lens 21.5 Sn60wf - [id number] - [id number] Implanted:Qty : 1 on 12/19/2023 by Ramsey Burnett DO at OR [facility] Left: Eye IVA : SURGICAL 12/03/2024 SN60WF.2 [id number] 022 / documented as of this encounter [...] statute hierarchy) Jovita Ovalle Adult Child Health Aluminum Boats Assembler resentative (appointed verbally by patient or by statute hierarchy) Care Teams Labor Delivery Specialist Relationship Specialty Start Date End Date Gregory Rausch MD [address] [place] [address] PCP - General Family Medicine 02/12/20 documented as of this encounter
--- OUTSIDE RECORDS SUMMARY | 2024-10-02 03:28 | External Medical Summary | Summary of Care ---
Author Name Unknown Organization [facility] Address [address] [place] [address] Phone [phone] Care Team Providers Care Crime Laboratory Analyst Name Role Phone Gregory Rausch MD Primary Care Provider [phone] Reason for Visit * Reason Onset Date Comments Follow Up 06/27/2024 Encounter Details Date Type Department Care Team (Late st Contact Info) Description 06/27/2024 Telephone [facility] [address] [place] [address] Fidelina Baumann MD [address] [place] [address] Follow Up Allergies Active Allergy [...] Capsules by mouth in the morning. Active PneumaCareTouch Verio In Vitro Strip (Glucose Blood) Use [...] a week. 9 mL 1 06/16/2024 Active Ssarybdvpn-Kqhrcam-Q affeine 50-325-40 MG Oral Capsule (Fiorinal)Indication s:Acute [...] morning. 18 mL 3 06/20/2024 Active Klayesta 217105 UNIT/GM External Powder (Nystatin)Indication s:Candidal intertrigo APPLY [...] eye 09/28/2020 Coronary artery disease invo lving [place] coronary artery of [place] heart without angina pectoris 12/16/2019 Last Assessment [...] 12/21/2016 Diabetes mellitus 01/05/2014 12/21/2016 LEYVA RESEARCH OTHER*[id number] 01/05/2014 12/21/2016 Axillary pain 11/03/2013 12/21/2016 Obesity, [...] cath 09/201008/26/2011 12/21/2016 FOLLOWING SURGERY, UNSPECIFI ED ([facility] BSO 08/25/2011) 08/26/2011 12/21/2016 ADVANCE DIRECTIVE INFORMATION 04/17/2011 12/21/2016 Overview: Yes, Patient instructed to provide copy of advance directive for provider to review and to be scanned into Electronic Medical Record ADVANCE DIRECTIVE INFORMATION 03/01/2011 12/21/2016 Overview: Yes, Patient instructed to provide copy of advance directive for provider to review and to be scanned into Electronic Medical Record [facility] V710 Clinical Trial*[id number] 12/22/2010 04/14/2011 S/P aortic valve replacement 12/01/2010 08/26/2011 S/P AORTIC VALVE REPLACEMENT - #25 pericardial Mc valve 11/01/2010 06/28/2018 Overview: Aortic valve replacement with #25 pericardial Mc valve, model 2800TFX, serial number [id number] (Dr. Walker) [facility] V710 Clinical Trial*[id number] 10/18/2010 11/21/2010 Type 2 diabetes mellitus wit [...] PPD 10/26/2019,10/17/2019 Pneumococcal Conjugate Vacci ne, 20-valent ([id number]) 06/22/2023 Pneumococcal Polysaccharide PPV23 (Pneumovax) 01/02/2008 Seasonal [...] no return call have been returned by pt * Telephone Encounter - Ruth Moreno LPN - 06/27/2024 10:43 AM EDT Note from remote encounter copied Neph nurse pls call pt/ caregiver to discuss; last cc365 entry was 05/30 Recommend if unable to do daily for cc365 MTM that she continue w/ MTM w/ periodic 3 day logs; sametarget as cc365 CC365 FYI documented in this encounter Plan of Treatment Upcoming Encounters Date Type Department Care Team (Late st Contact Info) Description 06/30/2024 10:00 AM EDT Office Visit Gastroenterology, [facility] [address] [facility] [place] [address] Arina Knapp PA-C [address] [place] [id number] 07/08/2024 6:10 PM EDT Pharmacy Pharmacy, [facility] [address] [facility] [address] Pharmacist1, [facility] [address] [place] [address] 07/21/2024 2:00 PM EDT Scheduled Telephone [facility], [facility] [address] [place] [address] Lakesha King, RDN [address] [place] [address] 07/31/2024 11:15 AM EST Office Visit Ophthalmology, [facility] [address] [facility] [place] [address] Ramsey Burnett, DO [address] [place] [address] 08/12/2024 9:20 AM EST Office Visit Family Practice [facility] [address] [facility] [place] [address] Gregory Rausch MD [address] [facility] [place] [address] 11/03/2024 11:00 AM EST Office Visit Sleep Disorders Ctr [facility] [address] [facility] [place] [phone] Christina Birch, [address] [facility] [place] [address] 11/04/2024 9:30 AM EST Office Visit Gastroenterology, [facility] [address] [facility] [place] [address] Tia Taylor CRNP [address] [facility] [place] [address] Scheduled Procedures Name Priority Associated Diagnoses Date/Ti [...] 10/25/2021, 02/16/2021, 01/18/2021 CKD PHOS USE SMARTSET 15400 06/18/202405/26, 06/16/2023, 06/15/2023, Additional history exists HbA1c 08/01/2024 01/30/2024, 08/25, 07/31/2023, Additional history exists Diabetic Eye Exam 09/13/2024 09/13/2023, , 09/13/2023, Additional history exists B-12 09/18/2024 09/18/2023, 08/24, 2020, Additional history exists GFR 11/01/2024 05/01/2024, 12/23, 10/15/2023, Additional history exists Albumin/Creatinine Ratio 01/07/2025 024, 03/09/2023, 12/22/2022, Additional history exists CKD HGB USE SMARTSET 44786 01/07/202501/07, 01/08/2024, 10/15/2023, Additional history exists TSH [...] Medical Devices Implanted Type Area Paper Pattern Inspector Device Identifier Shelf Expiration Date Model / Serial / Lot Cath Roselia Single Lumen - [id number] Implanted:Qty : 1 on 03/12/2008 at OR [facility] Left: Chest [facility] *DO NOT USE* 07/25/2012 21-4053-24 / / [id number] Sut Steel 6 M654g - [id number] Implanted:Qty : 1 on 11/01/2010 at OR [facility] N/A: Chest DO NOT USE M654G / / Sut Steel 6 M654g - [id number] Implanted:Qty : 1 on 11/01/2010 at OR [facility] N/A: Chest DO NOT USE M654G / / Valve Tarsha Aortic [id number] - [id number] Implanted:Qty : 1 on 11/01/2010 at OR [facility] N/A: Heart [employer] DANIEL 05/20/2012 2800TFX-25 / / [id number] Description:[email or web address] Mesh Soft 95q96wc - [id number] Implanted:Qty : 1 on 10/10/2019 by Gigi Hendrickson MD [place] [facility] [place]A: Abdomen CR BARD : DAVOL [id number] 05/21/2024 [id number] / / [id number] Lens 22.5 Sn60wf - [id number] - [id number] Implanted:Qty : 1 on 09/15/2020 by Cece Roland MD at OR [facility] Right: Eye IVA : SURGICAL [id number] 05/13/2025 SN60 WF.225 / [id number] / [id number] Lens 21.5 Sn60wf - [id number] - [id number] Implanted:Qty : 1 on 12/19/2023 by Ramsey Burnett DO at OR [facility] Left: Eye IVA : SURGICAL 12/03/2024 SN60WF.2 15 / [id number] / documented as of this encounter [...] statute hierarchy) Jovita Ovalle Adult Child Health Shoe Designer resentative (appointed verbally by patient or by statute hierarchy) [email or web address] Care Teams Crime Laboratory Analyst Relationship Specialty Start Date End Date Gregory Rausch MD [address] [place] [address] PCP - General Family Medicine 02/12/20 documented as of this encounter
--- OUTSIDE RECORDS SUMMARY | 2024-10-02 03:28 | External Medical Summary | Summary of Care ---
Author Name Unknown Organization [facility] Address [address] [place] [address] Phone [phone] Care Team Providers Care Brake Specialist Name Role Phone Gregory Rausch MD Primary Care Provider [phone] Reason for Visit * Reason Onset Date Comments Fax Refill 06/25/2024 Encounter Details Date Type Department Care Team (Late st Contact Info) Description 06/25/2024 Telephone Cardiology, [facility] [address] [place] [address] Roberto Carlos Muniz, [address] [place] [address] Fax Refill Allergies Active Allergy Reactions [...] (Glucose)Indication s:DM type 2, not at goal ([facility]) 3 every 15 minutes until glucose is > 100 mg/dL for hypoglycemia E11.9 100 Tab 3 07/06/2021 Active BirdbackTouch Verio w/Device Kit Use up to 4 times a day E11.9 1 Kit 02/10/2022 Active BirdbackTouch Delica Lancets 33G TEST 4 TIMES DAILY [...] Capsules by mouth in the morning. Active BirdbackTouch Verio In Vitro Strip (Glucose Blood) Use [...] a week. 9 mL 1 06/16/2024 Active Butalbital-Aspirin- Caffeine 50-325-40 MG Oral Capsule [...] morning. 18 mL 3 06/20/2024 Active Klayesta 633690 UNIT/GM External Powder (Nystatin)Indicatio ns:Candidal intertrigo APPLY TOPICALLY TO AFFECTED AREA 3 TIMES A DAY 60 g 1 06/23/2024 Active Metoprolol Tartrate 50 MG Oral Tablet (Lopressor)Indicati ons:HTN, goal below 130/80 TAKE 1 TABLET BY MOUTH IN THE MORNING AND BEFORE BEDTIME 180 Tablet 3 06/22/2024 Active Sulfamethoxazole-Tr imethoprim 800-160 MG Oral Tablet (Bactrim DS)Indications:E. coli UTI Take 1 Tablet by mouth in the morning and 1 Tablet before bedtime. Do all this for 3 days. Until gone. 6 Tablet 06/23/2024 06/26/20 24 Active Magnesium Oxide -Mg Supplement 400 (240 Mg) MG Oral Tablet (Mag-Ox)Indications :HTN, goal below 130/80,Chronic heart failure with preserved ejection fraction (HCC),Palpitations, Hypomagnesemia One tablet by mouth daily in the morning 90 Tablet 3 06/25/2024 Active Magnesium Oxide -Mg Supplement 400 (240 [...] eye 09/28/2020 Coronary artery disease invo lving [place] coronary artery of [place] heart without angina pectoris 12/16/2019 Last Assessment [...] 12/21/2016 Diabetes mellitus 01/05/2014 12/21/2016 LEYVA RESEARCH OTHER*[id number] 01/05/2014 12/21/2016 Axillary pain 11/03/2013 12/21/2016 Obesity, [...] cath 09/201008/26/2011 12/21/2016 FOLLOWING SURGERY, UNSPECIFI ED ([facility] BSO 08/25/2011) 08/26/2011 12/21/2016 ADVANCE DIRECTIVE [...] Medical Record [facility] V710 Clinical Trial*[id number] 12/22/2010 04/14/2011 S/P aortic valve replacement 12/01/2010 08/26/2011 S/P AORTIC VALVE REPLACEMENT - #25 pericardial Mc valve 11/01/2010 06/28/2018 Overview: Aortic valve replacement with #25 pericardial Mc valve, model 2800TFX, serial number [id number] (Dr. Walker) [facility] V710 Clinical Trial*[id number] 10/18/2010 11/21/2010 Type 2 diabetes mellitus wit [...] PPD 10/26/2019,10/17/2019 Pneumococcal Conjugate Vacci ne, 20-valent ([id number]) 06/22/2023 Pneumococcal Polysaccharide PPV23 (Pneumovax) 01/02/2008 Seasonal [...] Miscellaneous Notes * Telephone Encounter - Jovita London CMA - 06/25/2024 2:35 PM EDT Request to go to mail-order pharmacy. documented in this encounter Plan of Treatment Upcoming Encounters Date Type Department Care Team (Late st Contact Info) Description 06/26/2024 9:00 AM EDT Office Visit Nephrology, [facility] [address] [place] [address] Fidelina Baumann MD [address] [place] [address] 06/30/2024 10:00 AM EDT Office Visit Gastroenterology, [facility] [address] [facility] [place] [address] Arina Knapp PA-C [address] [place] [address] 07/08/2024 6:10 PM EDT Pharmacy Pharmacy, [facility] [address] [facility] [place] [address] Pharmacist1, [facility] [address] [facility] [place] [address] 07/21/2024 2:00 PM EDT Scheduled Telephone [facility], [facility] [address] [facility] [place] [address] Lakesha King, RDN [address] [facility] [place] [address] 07/31/2024 11:15 AM EST Office Visit Ophthalmology, [facility] [address] [facility] [place] [address] Ramsey Burnett, DO [address] [facility] [place] [address] 08/12/2024 9:20 AM EST Office Visit Family Practice [facility] [address] [facility] [place] [address] Gregory Rausch MD [address] [place] [address] 11/03/2024 11:00 AM EST Office Visit Sleep Disorders Ctr [facility] [address] [facility] [place] [phone] Christina Birch, [address] [facility] [place] [address] 11/04/2024 9:30 AM EST Office Visit Gastroenterology, [facility] [address] [facility] [place] [address] Tia Taylor CRNP [address] [place] [address] Scheduled Procedures Name Priority Associated Diagnoses Date/Ti [...] 10/25/2021, 02/16/2021, 01/18/2021 CKD PHOS USE SMARTSET 40200 06/18/202405/26, 06/16/2023, 06/15/2023, Additional history exists HbA1c 08/01/2024 01/30/2024, 08/25, 07/31/2023, Additional history exists Diabetic Eye Exam 09/13/2024 09/13/2023, , 09/13/2023, Additional history exists B-12 09/18/2024 09/18/2023, 08/24, 2020, Additional history exists GFR 11/01/2024 05/01/2024, 12/23, 10/15/2023, Additional history exists Albumin/Creatinine Ratio 01/07/2025 024, 03/09/2023, 12/22/2022, Additional history exists CKD HGB USE SMARTSET 22825 01/07/202501/07, 01/08/2024, 10/15/2023, Additional history exists TSH [...] this encounter Medical Devices Implanted Type Area Clinical Laboratory Technologist Device Identifier Shelf Expiration Date Model / Serial / Lot Cath Roselia Single Lumen - [id number] Implanted:Qty : 1 on 03/12/2008 at OR [facility] Left: Chest [facility] *DO NOT USE* 07/25/2012 21-4053-24 / / [id number] Sut Steel 6 M654g - [id number] Implanted:Qty : 1 on 11/01/2010 at OR [facility] N/A: Chest DO NOT USE M654G / / Sut Steel 6 M654g - [id number] Implanted:Qty : 1 on 11/01/2010 at OR [facility] N/A: Chest DO NOT USE M654G / / Valve Tarsha Aortic [id number] - [id number] Implanted:Qty : 1 on 11/01/2010 at OR [facility] N/A: Heart MC LIFESCI[employer] DANIEL 05/20/2012 2800TFX-25 / / [id number] Description:[email or web address] Mesh Soft 82y28yr - [id number] Implanted:Qty : 1 on 10/10/2019 by Gigi Hendrickson MD at [place] [facility] [place] N/A: Abdomen CR BARD : DAVOL [id number] 05/21/2024 [id number] / / [id number] Lens 22.5 Sn60wf - [id number] - [id number] Implanted:Qty : 1 on 09/15/2020 by Cece Roland MD at OR [facility] Right: Eye IVA : SURGICAL [id number] 05/13/2025 SN60 WF.225 / [id number] / [id number] Lens 21.5 Sn60wf - [id number] - [id number] Implanted:Qty : 1 on 12/19/2023 by Ramsey Burnett DO at OR [facility] Left: Eye IVA : SURGICAL 12/03/2024 SN60WF.2 15 / [id number] / documented as of this encounter Visit Diagnoses Diagnosis Hypomagnesemia- Primary Disorders of magnesium metabolism HTN, goal below 130/80 Unspecified essential hypertension Chronic heart failure with preserved ejection fraction (HCC) Palpitations documented in this encounter Advance Directives * [...] statute hierarchy) Jovita Yamile Adult Child Health Plastics Engineering Teacher resentative (appointed verbally by patient or by statute hierarchy) Care Teams Brake Specialist Relationship Specialty Start Date End Date Gregory Rausch MD [address] [place] [address] PCP - General Family Medicine 02/12/20 documented as of this encounter
--- OUTSIDE RECORDS SUMMARY | 2024-10-02 03:29 | External Medical Summary | Summary of Care ---
Author Name Unknown Organization [facility] Address [address] [place] [address] Phone [phone] Care Team Providers Care Notary Public Name Role Phone Deon Rausch MD Primary Care Provider [phone] Reason for Visit * Reason Comments eRx-Medication Refill Encounter Details Date Type Department Care Team (Late st Contact Info) Description 06/20/2024 Refill Family Practice [facility] [address] [place] [address] Deon Rausch MD [address] [place], [place] [id number] Candidal intertrigo; Heart failure, systolic, due to [...] as of this encounter (statuses as of 06/23/2024) Medications Medication Sig Dispensed Refills Start Date [...] once daily. 400 g 2 4 Active Magnesium Oxide -Mg Supplement 400 (240 Mg) MG Oral Tablet (Mag-Ox)Indication s:HTN, goal below 130/80 One tablet by mouth daily in the morning 90 Tablet 3 4 Active Insulin Aspart 100 UNIT/ML Injection Solution (NovoLOG)Indicatio ns:Type 2 diabetes mellitus with hemoglobin A1c goal of less than 7.0% ([facility]) Use up to 50 units per day in Omnipod. 4 Active Omnipod 5 G6 Intro (Gen 5) Kit Use as directed. Use to delivery insulin via insulin pump 1 Kit 5 4 Active Loperamide HCl 2 MG Oral Capsule (Imodium A-D) Take 1 Capsule by mouth 4 times a day as needed for Diarrhea. Active Dificid 200 MG Oral Tablet (Fidaxomicin)Indic ations:C. difficile colitis Take 1 Tablet by mouth in the morning and 1 Tablet before bedtime. 28 Tablet 4 Active Saccharomyces boulardii 250 MG Oral Capsule (Florastor) Take 1 Capsule by mouth in the morning and 1 Capsule before bedtime. 60 Capsule 4 Active DULoxetine HCl 20 MG Oral Capsule Delayed Release Particles (Cymbalta) Take 1 Capsule by mouth in the morning. 30 Capsule 1 4 Active Atorvastatin Calcium 40 MG Oral Tablet (Lipitor)Indicatio ns:Heart failure, systolic, due to idiopathic cardiomyopathy (HCC),S/P aortic valve replacement,HTN, goal below 140/80,Dyslipidemi a, goal LDL below 70 Take 1 tablet by mouth daily to prevent heart attack/stroke, protect kidney, and cholesterol 90 Tablet 4 Active Clopidogrel Bisulfate 75 MG Oral Tablet (pLAVix) Take 1 Tablet by mouth in the morning. 90 Tablet 4 Active Gabapentin 300 MG Oral Capsule [...] a week. 9 mL 1 4 Active Butalbital-Aspirin -Caffeine 50-325-40 MG Oral Capsule (Fiorinal)Indicati ons:Acute intractable tension-type headache Take 1 Capsule by mouth every 4 hours as needed for Headache. 30 Capsule 4 Active Fluticasone Propionate 50 MCG/ACT Nasal [...] the morning. 18 mL 3 4 Active Klayesta 316337 UNIT/GM External Powder (Nystatin)Indicati ons:Candidal intertrigo APPLY TOPICALLY TO AFFECTED AREA 3 TIMES A DAY 60 g 1 4 Active Metoprolol Tartrate 50 MG Oral Tablet (Lopressor)Indicat ions:HTN, goal below 130/80 TAKE 1 TABLET BY MOUTH IN THE MORNING AND BEFORE BEDTIME 180 Tablet 3 4 Active Nystatin 961004 UNIT/GM External Powder (Nystop)Indication s:Candidal intertrigo APPLY TOPICALLY TO AFFECTED AREA 3 TIMES A DAY. 60 g 1 4 06/23/20 24 Discontinued documented as of this encounter (statuses as of 06/23/2024) Active Problems Problem Noted Date Diagnosed Date [...] as of this encounter (statuses as of 06/23/2024) Resolved Problems Problem Noted Date Diagnosed Date [...] 12/21/2016 Diabetes mellitus 01/05/2014 12/21/2016 LEYVA RESEARCH OTHER*[id number] 01/05/2014 12/21/2016 Axillary pain 11/03/2013 12/21/2016 Obesity, [...] Medical Record [facility] V710 Clinical Trial*[id number] 12/22/2010 04/14/2011 S/P aortic valve replacement 12/01/2010 08/26/2011 S/P AORTIC VALVE REPLACEMENT - #25 pericardial Mc valve 11/01/2010 06/28/2018 Overview: Aortic valve replacement with #25 pericardial Mc valve, model 2800TFX, serial number [id number] (Dr. Walker) [facility] V710 Clinical Trial*[id number] 10/18/2010 11/21/2010 Type 2 diabetes mellitus wit [...] as of this encounter (statuses as of 06/23/2024) Immunizations Name Administration Dates Next Due COVID-19 mRNA, LNP-s, No Pre serve, 2-Dose Series (Moderna) 10/25/2021,02/16/2021,01/18/2021 HEP A - Hepatitis A (Adult > 18 yrs) 06/07/2018, 12/05/2017 Hepatitis B, 20+ yrs 06/07/2018,01/08/20 18,12/05/2017,06/15,10/27/2013,09/12/2013 PPD 10/26/2019,10/17/2019 Pneumococcal Conjugate Vacci ne, 20-valent (Ulwgxhs21) 06/22/2023 Pneumococcal Polysaccharide PPV23 (Pneumovax) 01/02/2008 Seasonal [...] Telephone Encounter - Deon Rausch MD - 06/23/2024 10:01 AM EDTSigned Prescriptions: Disp Refills Klayesta 084162 UNIT/GM External Powder (N*60 g 1 Sig: APPLY TOPICALLY TO AFFECTED AREA 3 TIMES A DAY Authorizing Provider: DEON RAUSCH Refused Prescriptions: Disp Refills Atorvastatin Calcium 40 MG Oral Tablet (Li*90 Tab*2 Sig: TAKE 1 TABLET BY MOUTH DAILY TO PREVENT HEART ATTACK/STROKE, PROTE CT KIDNEY, AND CHOLESTEROL Refused By: JACKIE BARRAGAN Reason for Refusal: Too soon Levothyroxine Sodium 75 MCG Oral Tablet (L*90 Tab*2 Sig: TAKE 1 TAB DAILY FIRST THING IN MORNING, AT LEAST 30 MIN PRIOR TO BREAKFAST OR OTHER MEDICATIONS Refused By: JACKIE BARRAGAN Reason for Refusal: Too soon * Telephone Encounter - Jackie Barragan RPh - 06/23/2024 9:08 AM EDTPending Prescriptions: Disp Refills Klayesta 427049 UNIT/GM External Powder (N*60 g 1 Sig: APPLY TOPICALLY TO AFFECTED AREA 3 TIMES A DAY Refused Prescriptions: Disp Refills Atorvastatin Calcium 40 MG Oral Tablet (Li*90 Tab*2 Sig: TAKE 1 TABLET BY MOUTH DAILY TO PREVENT HEART ATTACK/STROKE, PROTECT KIDNEY, AND CHOLESTEROL Refused By: ALEJANDRO BARRAGAN Reason for Refusal: Too soon Levothyroxine Sodium 75 MCG Oral Tablet (L*90 Tab*2 Sig: TAKE 1 TAB DAILY FIRST THING IN MORNING, AT LEAST 30 MIN PRIOR TO BREAKFAST OR OTHER MEDICATIONS Refused By: JACKIE BARRAGAN Reason for Refusal: Too soon * Telephone Encounter - Jackie Barragan RPh - 06/23/2024 9:08 AM EDT [facility] is currently not authorized to approve refills for the pended medication(s) per refill protocol. Please approve if appropriate. ThanksJackie PharmD Clinical Pharmacist Centralized Clinical Pharmacy Services ([facility]) [phone] 06/23/2024, 9:08 AM * Telephone Encounter - Jackie Barragan RPh - 06/23/2024 9:06 AM EDT Pending Prescriptions: Disp Refills Klayesta 145813 UNIT/GM External Powder (*60 g 1 Sig: APPLY TOPICALLY TO AFFECTED AREA 3 TIMES A DAY Atorvastatin Calcium 40 MG Oral Tablet (L*90 Tab*2 Sig: TAKE 1 TABLET BY MOUTH DAILY TO PREVENT HEART ATTACK/STROKE, PROTECT KIDNEY, AND CHOLESTEROL Levothyroxine Sodium 75 MCG Oral Tablet (*90 Tab*2 Sig: TAKE 1 TAB DAILY FIRST THING IN MORNING, AT LEAST 30 MIN PRIOR TO BREAKFAST OR OTHER MEDICATIONS Last Visit: 06/05/2024 (in office), 09/12/2023 (telemedicine) Next Visit: 08/12/2024 If no future appointments scheduled, and last appointment is greater than a year ago, please schedule patient for a follow-up appointment Last date the medication was ordered: 04/14/24 Pharmacy: [id number] [place] Is this request for a controlled substance? [...] Description 06/26/2024 9:00 AM EDT Office Visit [address] [place] [address] Fidelina Baumann MD [address] [facility] [place] [address] 06/30/2024 10:00 AM EDT Office Visit [facility]ology, [facility] [address] [facility] [place] [address] Arina Knapp PA-C [address] [place] [address] 07/08/2024 6:10 PM EDT Pharmacy Pharmacy, [facility] [address] [facility] [place] [address] Pharmacist1, [facility] [address] [facility] [place] [address] 07/21/2024 2:00 PM EDT Scheduled Telephone [facility], [facility] [address] [facility] [place] [address] Lakesha King, RDN [address] [place] [address] 07/31/2024 11:15 AM EST Office Visit Ophthalmology, [facility] [address] [facility] [place] [address] Ramsey Burnett, DO [address] [place] [address] 08/12/2024 9:20 AM EST Office Visit Family Practice [facility] [address] [facility] [place] [address] Deon Rausch MD 132 [facility] [place] [address] 11/03/2024 11:00 AM EST Office Visit Sleep Disorders Ctr [facility] 132 [facility] [place] [id number] Christina Birch, DO [address] [place] [address] 11/04/2024 9:30 AM EST Office Visit Gastroenterology, [facility] [address] [place] [address] Tia Taylor CRNP [address] [place] [address] Scheduled Procedures Name Priority Associated Diagnoses Date/Ti [...] 10/25/2021, 02/16/2021, 01/18/2021 CKD PHOS USE SMARTSET 18515 06/18/202405/26, 06/16/2023, 06/15/2023, Additional history exists HbA1c 08/01/2024 01/30/2024, 08/25, 07/31/2023, Additional history exists Diabetic Eye Exam 09/13/2024 09/13/2023, , 09/13/2023, Additional history exists B-12 09/18/2024 09/18/2023, 08/24, 2020, Additional history exists GFR 11/01/2024 05/01/2024, 12/23, 10/15/2023, Additional history exists Albumin/Creatinine Ratio 01/07/2025 024, 03/09/2023, 12/22/2022, Additional history exists CKD HGB USE SMARTSET 87907 01/07/202501/07, 01/08/2024, 10/15/2023, Additional history exists TSH [...] this encounter Medical Devices Implanted Type Area Subway Train Operator Device Identifier Shelf Expiration Date Model / Serial / Lot Cath Roselia Single Lumen - [id number] Implanted:Qty : 1 on 03/12/2008 at OR [facility] Left: Chest [facility] *DO NOT USE* 07/25/2012 21-4053-24 / / [id number] Sut Steel 6 M654g - [id number] Implanted:Qty : 1 on 11/01/2010 at OR [facility] N/A: Chest DO NOT USE M654G / / Sut Steel 6 M654g - [id number] Implanted:Qty : 1 on 11/01/2010 at OR [facility] N/A: Chest DO NOT USE M654G / / Valve Tarsha Aortic [id number] - [id number] Implanted:Qty : 1 on 11/01/2010 at OR [facility] N/A: Heart [employer] DANIEL 05/20/2012 2800TFX-25 / / [id number] Description:[email or web address] Mesh Soft 81n29iz - [id number] Implanted:Qty : 1 on 10/10/2019 by Gigi Hendrickson MD at [place] [facility] N/A: Abdomen CR BARD : DAVOL [id number] 05/21/2024 [id number] / / [id number] Lens 22.5 Sn60wf - [id number] - [id number] Implanted:Qty : 1 on 09/15/2020 by Renaldo Cook, Cece Acosta MD at OR [facility] Right: Eye IVA : SURGICAL [id number] 05/13/2025 SN60 WF.225 / [id number] / [id number] Lens 21.5 Sn60wf - [id number] - [id number] Implanted:Qty : 1 on 12/19/2023 by Ramsey Burnett DO at OR [facility] Left: Eye IVA : SURGICAL 12/03/2024 SN60WF.2 15 / [id number] / documented as of this encounter Visit Diagnoses Diagnosis Candidal intertrigo Candidiasis of skin and nails Heart failure, systolic, due to idiopathic cardiomyopathy (HCC) Unspecified systolic heart failure S/P AORTIC VALVE REPLACEMENT - #25 pericardial Cm valve Heart valve replaced by other means [...] statute hierarchy) Jovita Ovalle Adult Child Health Repairer Cylinder Heads resentative (appointed verbally by patient or by statute hierarchy) Care Teams Notary Public Relationship Specialty Start Date End Date Deon Rausch MD [address] [place] [id number] PCP - General Family Medicine 02/12/20 documented as of this encounter
--- OUTSIDE RECORDS SUMMARY | 2024-10-02 03:29 | External Medical Summary | Summary of Care ---
Author Name Unknown Organization [facility] Address [address] [place] [address] Phone [phone] Care Team Providers Care Online Marketing Specialist Name Role Phone Gregory Rausch MD Primary Care Provider [phone] Reason for Visit * Reason Onset Date Comments [facility]: Maintenance 06/20/2024 Encounter Details Date Type Department Care Team (Latest Contact Info) Description 06/20/2024 9:30 AM EDT Scheduled Telephone [facility], [facility] [address] [facility] [place] [address] Coordinator, [facility] [address] [facility] [place] [address] Type 2 diabetes mellitus with hemoglobin A1c goal of less than 7.0% ([facility]); Type 2 diabetes mellitus with stage 3a chronic kidney disease, with long-term current use of insulin ([facility]) Allergies Active Allergy Reactions Criticality Noted [...] (Glucose)Indication s:DM type 2, not at goal ([facility]) 3 every 15 minutes until glucose is > 100 mg/dL for hypoglycemia E11.9 100 Tab 3 1 Active TalentwireTouch Verio w/Device Kit Use up to 4 times a day E11.9 1 Kit 2 Active TalentwireTouch Delica Lancets 33G TEST 4 TIMES DAILY [...] Capsules by mouth in the morning. Active TalentwireTouch Verio In Vitro Strip (Glucose Blood) Use up to 4 times a day E11.9 100 Strip 11 4 Active Potassium Chloride Shannon [facility] 10 MEQ Oral Tablet Extended ReleaseIndications: Acute on chronic heart failure with preserved ejection fraction (HFpEF) ([facility]) Take 1 Tablet by mouth in [...] pump 1 Kit 5 4 Active Nystatin 622984 UNIT/GM External Powder (Nystop)Indications :Candidal intertrigo APPLY [...] for 8 wks 100 Capsule 4 Active DULoxetine HCl 20 MG [...] a week. 9 mL 1 4 Active Butalbital-Aspirin- Caffeine 50-325-40 MG Oral [...] of insulin ([facility]) Inject 36 Units under the skin in the morning. 18 mL 3 4 Active Metoprolol Tartrate 50 MG Oral Tablet (Lopressor)Indicati ons:HTN, goal below 130/80 Take 1 Tablet by mouth in the morning and 1 Tablet before bedtime. 180 Tablet 3 4 06/22/20 24 Discontinu ed(Refill) Tresiba FlexTouch 200 UNIT/ML Subcutaneous Solution Pen-injector (Insulin Degludec)Indication s:Type 2 diabetes mellitus with hemoglobin A1c goal of less than 7.0% (HCC),Type 2 diabetes mellitus with stage 3a chronic kidney disease, with long-term current use of insulin (HCC) Inject 36 Units under the skin in the morning. 6 mL 2 4 06/20/20 24 Discontinu ed(Medicat ion/Dose Changed) documented as [...] 12/21/2016 Diabetes mellitus 01/05/2014 12/21/2016 LEYVA RESEARCH OTHER*[id number] 01/05/2014 12/21/2016 Axillary pain 11/03/2013 12/21/2016 Obesity, [...] Record [facility] V710 Clinical Trial*[id number] 12/22/2010 04/14/2011 S/P aortic valve replacement 12/01/2010 08/26/2011 S/P AORTIC VALVE REPLACEMENT - #25 pericardial Mc valve 11/01/2010 06/28/2018 Overview: Aortic valve replacement with #25 pericardial Mc valve, model 2800TFX, serial number [id number] (Dr. Walker) [facility] V710 Clinical Trial*[id number] 10/18/2010 11/21/2010 Type 2 diabetes mellitus wit [...] 06/07/2018,01/08/20 18,12/05/2017,06/15,10/27/2013,09/12/2013 Pneumococcal Conjugate Vacci ne, 20-valent ([id number]) 06/22/2023 Pneumococcal Polysaccharide PPV23 (Pneumovax) 01/02/2008 Seasonal [...] Telephone Encounter - Angelica Welch RN - 06/20/2024 10:05 AM EDT [facility] Telephonic Nurse Follow-Up Call [facility] Subprogram: Focused Care Management (3-9 months) Follow Up Call Type: 24 hour follow up Acute issue requiring follow-up call: Other: follow up on blood sugars Objective: 06/11/2024 2:03 PM 06/05/2024 9:14 AM 05/08/2024 10:40 AM 05/01/2024 11:25 AM 05/01/2024 10:13 AM VITALS ACROSS ENCOUNTERS BP 112/68 124/60 118/74 124/66 120/60 Pulse 84 95 84 85 Weight 67.8 kg 68.9 kg BMI 30.18 kg/m2 30.7 kg/m2 Remote Patient Monitoring: NONE Oxygen Needs: NO supplemental oxygen needs identified DME Needs: NO DME needs identified Medications: No medication or dose adjustments made during acute episode Subjective: Condition Status: No change in symptoms Current Concerns: Spoke with patient this morning to follow up on elevated blood sugars. Fasting sugar this morning was 357. Last evening before bed was in the 400s. She took novolog 10 units this morning as well as her Tresiba 36 units. Patient is asymptomatic. Patient asking for refill of her Tresiba as she is almost out. Will forward to [facility]. Disposition: [place] [facility] and[facility]or [facility] Care Team for further advice Future Visits Scheduled: Future Appointments-next 60 days Date/Time Provider Specialty Dept Phone 06/23/2024 9:00 AM (Arrive by 8:45 AM) Massimo Frias MD Family Medicine [phone] 06/26/2024 9:00 AM (Arrive by 8:45 AM) Fidelina Baumann MD Nephrology [phone] 06/30/2024 10:00 AM (Arrive by 9:45 AM) Arina Knapp PA-C Gastroenterology [phone] 07/08/2024 6:10 PM Pharmacist1, [facility] [phone] 07/31/2024 11:15 AM Ramsey Burnett DO Ophthalmology [phone] 08/12/2024 9:20 AM (Arrive by 9:05 AM) Gregory Rausch MD Family Medicine [phone] 11/03/2024 11:00 AM (Arrive by 10:45 AM) Christina Birch DO Sleep Disorders [phone] 11/04/2024 9:30 AM (Arrive by 9:15 AM) Tia Taylor CRNP Gastroenterology [phone] Angelica Welch RN documented in this encounter Plan of Treatment Upcoming Encounters Date Type Department Care Team (Late st Contact Info) Description 06/23/2024 9:00 AM EDT Office Visit Family [facility] [address] [facility] [place] [address] Massimo Frias MD [address] [facility] [place] [address] 06/26/2024 9:00 AM EDT Office Visit Nephrology, [facility] [address] [facility] [place] [address] Fidelina Baumann MD [address] [facility] [place] [address] 06/30/2024 10:00 AM EDT Office Visit Gastroenterology, [facility] [address] [facility] [place] [address] Arina Knapp PA-C [address] [place] [address] 07/08/2024 6:10 PM EDT Pharmacy Pharmacy, [facility] [address] [facility] [place] [address] Pharmacist1, [facility] [address] [facility] [address] 07/31/2024 11:15 AM EST Office Visit Ophthalmology, [facility] [address] [facility] [place] [address] Ramsey Burnett, DO [address] [facility] [place] [address] 08/12/2024 9:20 AM EST Office Visit [facility] [address] [facility] [place] [address] Gregory Rausch MD [address] [facility] [place] [address] 11/03/2024 11:00 AM EST Office Visit Sleep Disorders Ctr [facility] [address] [place] [address] BirchChristina Lakesha, [address] [place] [address] 11/04/2024 9:30 AM EST Office Visit Gastroenterology, [facility] [address] [place] [address] Tia Taylor CRNP [address] [place] [address] Scheduled Procedures Name Priority Associated Diagnoses Date/Ti [...] Additional history exists CKD PHOS USE SMARTSET 95742 06/18/202405/26, 06/16/2023, 06/15/2023, Additional history exists HbA1c 08/01/2024 01/30/2024, 08/25, 07/31/2023, Additional history exists Diabetic Eye Exam 09/13/2024 09/13/2023, , 09/13/2023, Additional history exists B-12 09/18/2024 09/18/2023, 08/24, 2020, Additional history exists GFR 11/01/2024 05/01/2024, 12/23, 10/15/2023, Additional history exists Albumin/Creatinine Ratio 01/07/2025 024, 03/09/2023, 12/22/2022, Additional history exists CKD HGB USE SMARTSET 03039 01/07/202501/07, 01/08/2024, 10/15/2023, Additional history exists TSH [...] this encounter Medical Devices Implanted Type Area Glass Lined Tank Repairer Device Identifier Shelf Expiration Date Model / Serial / Lot Cath Roselia Single Lumen - [id number] Implanted:Qty : 1 on 03/12/2008 at OR [facility] Left: Chest [facility] *DO NOT USE* 07/25/2012 21-4053-24 / / [id number] Sut Steel 6 M654g - [id number] Implanted:Qty : 1 on 11/01/2010 at OR [facility] N/A: Chest DO NOT USE M654G / / Sut Steel 6 M654g - [id number] Implanted:Qty : 1 on 11/01/2010 at OR [facility] N/A: Chest DO NOT USE M654G / / Valve Tarsha Aortic [id number] - [id number] Implanted:Qty : 1 on 11/01/2010 at OR [facility] N/A: Heart [employer] D[employer]EL 05/20/2012 2800TFX-25 / / [id number] Description:[email or web address] Mesh Soft [id number] - [id number] Implanted:Qty : 1 on 10/10/2019 by Gigi Hendrickson MD at [place] [facility] N/A: Abdomen CR BARD : DAVOL [id number] 05/21/2024 [id number] / / [id number] Lens 22.5 Sn60wf - [id number] - [id number] Implanted:Qty : 1 on 09/15/2020 by Renaldo Cook, Cece Acosta MD at [facility] Right: Eye IVA : SURGICAL [id number] 05/13/2025 SN60 WF.225 / [id number] / [id number] Lens 21.5 Sn60wf - [id number] - [id number] Implanted:Qty : 1 on 12/19/2023 by Ramsey Burnett DO at OR [facility] Left: Eye IVA : SURGICAL 12/03/2024 SN60WF.2 15 / [id number] / documented as of this encounter [...] statute hierarchy) Jovita Ovalle Adult Child Health Outbound Sales Representative resentative (appointed verbally by patient or by statute hierarchy) Care Teams Online Marketing Specialist Relationship Specialty Start Date End Date Gregory Rausch MD [address] [place] [address] PCP - General Family Medicine 02/12/20 documented as of this encounter
--- OUTSIDE RECORDS SUMMARY | 2024-10-02 03:29 | External Medical Summary | Summary of Care ---
Author Name Unknown Organization [facility] Address [address] [place] [address] Phone [phone] Care Team Providers Care Plaster Foreman Name Role Phone Gregory Rausch MD Primary Care Provider [phone] Reason for Visit * Reason Onset Date Comments Home Monitoring Orders Only 06/19/2024 Encounter Details Date Type Department Care Team (Late st Contact Info) Description 06/19/2024 Home Monitoring Care Coordination [address] [place] [address] Fidelina Baumann MD [address] [place] [address] Hypertension* Allergies Active Allergy Reactions [...] (Glucose)Indication s:DM type 2, not at goal ([facility] [...] Capsules by mouth in the morning. Active IMayGouTouch Verio In Vitro Strip (Glucose Blood) Use [...] of less than 7.0% ([facility]) Use up to 50 units per day in Omnipod. 4 Active Omnipod 5 G6 Intro (Gen 5) Kit Use as directed. Use to delivery insulin via insulin pump 1 Kit 5 4 Active Nystatin 686212 UNIT/GM External Powder (Nystop)Indications :Candidal intertrigo APPLY [...] 6 mL 2 4 06/20/20 24 Discontinu ed(Refill) Vancomycin HCl 125 MG Oral Capsule (Vancocin) 125 mg orally 4 times daily for 2 wks, then 2 x/day x wk, then daily x 1 wk, then every other day for 8 wks 100 Capsule 4 06/23/20 24 Discontinu ed(Medicat ion List Clean Up) Metoprolol Tartrate 50 MG Oral Tablet (Lopressor)Indicati ons:HTN, goal below 130/80 Take 1 Tablet by mouth in the morning and 1 Tablet before bedtime. 180 Tablet 3 4 06/22/20 24 Discontinu ed(Refill) documented as of this [...] 12/21/2016 Diabetes mellitus 01/05/2014 12/21/2016 LEYVA RESEARCH OTHER*[id number] 01/05/2014 12/21/2016 Axillary pain 11/03/2013 12/21/2016 Obesity, [...] cath 09/201008/26/2011 12/21/2016 FOLLOWING SURGERY, UNSPECIFI ED (KAUSHIK BSO 08/25/2011) 08/26/2011 12/21/2016 ADVANCE DIRECTIVE INFORMATION [...] Record [facility] V710 Clinical Trial*[id number] 12/22/2010 04/14/2011 S/P aortic valve replacement 12/01/2010 08/26/2011 S/P AORTIC VALVE REPLACEMENT - #25 pericardial Mc valve 11/01/2010 06/28/2018 Overview: Aortic valve replacement with #25 pericardial Mc valve, model 2800TFX, serial number [id number] (Dr. Walker) [facility] V710 Clinical Trial*[id number] 10/18/2010 11/21/2010 Type 2 diabetes mellitus wit [...] PPD 10/26/2019,10/17/2019 Pneumococcal Conjugate Vacci ne, 20-valent ([id number]) 06/22/2023 Pneumococcal Polysaccharide PPV23 (Pneumovax) 01/02/2008 Seasonal Influenza, High Dos e, Trivalent, PF, [...] Progress Notes * Ruth Moreno LPN - 06/23/2024 9:58 [...] sametarget as cc365 CC365 FYI * Paul Klein, [facility] Teacher - 06/19/2024 11:48 AM EDT Spoke to patients aide (Jennifer) who expressed concerns about patients inability to provide consistent readings and participate in the program. Paul Klein Community Programs Specialist Electronically signed by Paul Klein [facility] Teacher at 06/19/2024 11:50 AM EDT documented in this encounter Plan of Treatment Upcoming Encounters Date Type Department Care Team (Late st Contact Info) Description 06/26/2024 9:00 AM EDT Office Visit Nephrology, [facility] [address] [facility] [place] [address] Fidelina Baumann MD [address] [place] [address] 06/30/2024 10:00 AM EDT Office Visit Gastroenterology, [facility] [address] [facility] [place] [address] Arina Knapp PA-C [address] [place] [address] 07/08/2024 6:10 PM EDT Pharmacy Pharmacy, [facility] [address] [facility] [place] [address] Pharmacist1, [facility] [address] [facility] [place] [address] 07/21/2024 2:00 PM EDT Scheduled Telephone [facility], [facility] [address] [facility] [place] [address] Lakesha King, RDN [address] [place] [address] 07/31/2024 11:15 AM EST Office Visit Ophthalmology, [facility] [address] [facility] [place] [address] Ramsey Burnett, DO [address] [facility] [place] [address] 08/12/2024 9:20 AM EST Office Visit Family Practice [facility] [address] [place] [address] Gregory Rausch MD [address] [place] [address] 11/03/2024 11:00 AM EST Office Visit Sleep Disorders Ctr [facility] [address] [place] [id number] Christina Birch DO [address] [place] [address] 11/04/2024 9:30 AM EST Office Visit Gastroenterology, [facility] [address] [place] [address] Tia Taylor CRNP [address] [place] [address] Scheduled Procedures Name Priority Associated Diagnoses Date/Ti [...] 10/25/2021, 02/16/2021, 01/18/2021 CKD PHOS USE SMARTSET 33627 06/18/202405/26, 06/16/2023, 06/15/2023, Additional history exists HbA1c 08/01/2024 01/30/2024, 08/25, 07/31/2023, Additional history exists Diabetic Eye Exam 09/13/2024 09/13/2023, , 09/13/2023, Additional history exists B-12 09/18/2024 09/18/2023, 08/24, 2020, Additional history exists GFR 11/01/2024 05/01/2024, 12/23, 10/15/2023, Additional history exists Albumin/Creatinine Ratio 01/07/2025 024, 03/09/2023, 12/22/2022, Additional history exists CKD HGB USE SMARTSET 89007 01/07/202501/07, 01/08/2024, 10/15/2023, Additional history exists TSH [...] this encounter Medical Devices Implanted Type Area Horse Race Starter Device Identifier Shelf Expiration Date Model / Serial / Lot Cath Roselia Single Lumen - [id number] Implanted:Qty : 1 on 03/12/2008 at OR [facility] Left: Chest [facility] *DO NOT USE* 07/25/2012 21-4053-24 / / [id number] Sut Steel 6 M654g - [id number] Implanted:Qty : 1 on 11/01/2010 at OR [facility] N/A: Chest DO NOT USE M654G / / Sut Steel 6 M654g - [id number] Implanted:Qty : 1 on 11/01/2010 at OR [facility] N/A: Chest DO NOT USE M654G / / Valve Tarsha Aortic [id number] - [id number] Implanted:Qty : 1 on 11/01/2010 at OR [facility] N/A: Heart [employer]EL 05/20/2012 2800TFX-25 / / [id number] Description:[email or web address] Mesh Soft 34u50oj - [id number] Implanted:Qty : 1 on 10/10/2019 by Gigi Hendrickson MD at [place] [facility] N/A: Abdomen CR BARD : DAVOL [id number] 05/21/2024 [id number] / / [id number] Lens 22.5 Sn60wf - [id number] - [id number] Implanted:Qty : 1 on 09/15/2020 by Renalod Cook, Cece Acosta MD at OR [facility] Right: Eye IVA : SURGICAL [id number] 05/13/2025 SN60 WF.225 / [id number] / [id number] Lens 21.5 Sn60wf - [id number] - [id number] Implanted:Qty : 1 on 12/19/2023 by Ramsey Burnett DO at OR [facility] Left: Eye IVA : SURGICAL 12/03/2024 SN60WF.2 15 / [id number] / documented as of this encounter [...] statute hierarchy) Jovita Ovalle Adult Child Health Concrete Gun Operator resentative (appointed verbally by patient or by statute hierarchy) [email or web address] Care Teams Plaster Foreman Relationship Specialty Start Date End Date Gregory Rausch MD [address] [place] [address] PCP - General Family Medicine 02/12/20 documented as of this encounter
--- OUTSIDE RECORDS SUMMARY | 2024-10-02 03:29 | External Medical Summary | Summary of Care ---
Author Name Unknown Organization [facility] Address [address] [place] [address] Phone [phone] Care Team Providers Care Accounts Payable Coordinator Name Role Phone Gregory Rausch MD Primary Care Provider [phone] Reason for Visit * Reason Onset Date Comments Home Monitoring Orders Only 06/19/2024 Encounter Details Date Type Department Care Team (Late st Contact Info) Description 06/19/2024 Home Monitoring Care Coordination [address] [place] [address] Fidelina Baumann MD [address] [place] [address] Hypertension* Allergies Active Allergy Reactions [...] ns:DM type 2, not at goal ([facility] [...] 2 03/14/20 24 024 Discontinued(Re fill) Nystatin 855713 UNIT/GM External Powder (Nystop)Indication s:Candidal intertrigo APPLY [...] 12/21/2016 Diabetes mellitus 01/05/2014 12/21/2016 LEYVA RESEARCH OTHER*[id number] 01/05/2014 12/21/2016 Axillary pain 11/03/2013 12/21/2016 Obesity, [...] to be scanned into Electronic Medical Record [facility] V710 Clinical Trial*[id number] 12/22/2010 04/14/2011 S/P aortic valve replacement 12/01/2010 08/26/2011 S/P AORTIC VALVE REPLACEMENT - #25 pericardial Mc valve 11/01/2010 06/28/2018 Overview: Aortic valve replacement with #25 pericardial Mc valve, model 2800TFX, serial number [id number] (Dr. Walker) [facility] V710 Clinical Trial*[id number] 10/18/2010 11/21/2010 Type 2 diabetes mellitus wit [...] PPD 10/26/2019,10/17/2019 Pneumococcal Conjugate Vacci ne, 20-valent ([id number]) 06/22/2023 Pneumococcal Polysaccharide PPV23 (Pneumovax) 01/02/2008 Seasonal [...] 06/25/2024 8:35 AM EDT Pt has OV today Please have MD discuss as pt has [...] as cc365 CC365 FYI * Paul Klein [facility] Health Outbound Supervisor - 06/19/2024 11:48 AM EDT Spoke to patients aide (Jennifer) who expressed concerns about patients inability to provide consistent readings and participate in the program. Paul Klein [facility] Programs Specialist Electronically signed by Paul Klein [facility] Health Outbound Supervisor at 06/19/2024 11:50 AM EDT documented in this encounter Plan of Treatment Upcoming Encounters Date Type Department Care Team (Late st Contact Info) Description 06/26/2024 9:00 AM EDT Office Visit Nephrology, [facility] [address] [place] [address] Fidelina Baumann MD [address] [place] [address] 06/30/2024 10:00 AM EDT Office Visit Gastroenterology, [facility] [address] [facility] [place] [address] Arina Knapp PA-C [address] [place] [address] 07/08/2024 6:10 PM EDT Pharmacy Pharmacy, [facility] [address] [place] [address] Pharmacist1, [facility] [address] [place] [address] 07/21/2024 2:00 PM EDT Scheduled Telephone [facility], [facility] [address] [facility] [place] [id number] Lakesha King, ROBERT [address] [place] [address] 07/31/2024 11:15 AM EST Office Visit Ophthalmology, [facility] [address] [facility] [place] [address] Ramsey Burnett, DO [address] [facility] [place] [address] 08/12/2024 9:20 AM EST Office Visit Family Practice [facility] [address] [facility] [place] [address] [facility] MD [address] [facility] [place] [address] 11/03/2024 11:00 AM EST Office Visit Sleep Disorders Ctr [facility] [address] [place] [phone] Christina Birch, DO [address] [facility] [place] [address] 11/04/2024 9:30 AM EST Office Visit Gastroenterology, [facility] [address] [facility] [place] [address] Tia Taylor CRNP [address] [facility] [address] Scheduled Procedures Name Priority Associated Diagnoses Date/Ti [...] 10/25/2021, 02/16/2021, 01/18/2021 CKD PHOS USE SMARTSET 52434 06/18/202405/26, 06/16/2023, 06/15/2023, Additional history exists HbA1c 08/01/2024 01/30/2024, 08/25, 07/31/2023, Additional history exists Diabetic Eye Exam 09/13/2024 09/13/2023, , 09/13/2023, Additional history exists B-12 09/18/2024 09/18/2023, 08/24, 2020, Additional history exists GFR 11/01/2024 05/01/2024, 12/23, 10/15/2023, Additional history exists Albumin/Creatinine Ratio 01/07/2025 024, 03/09/2023, 12/22/2022, Additional history exists CKD HGB USE SMARTSET 94369 01/07/202501/07, 01/08/2024, 10/15/2023, Additional history exists TSH [...] this encounter Medical Devices Implanted Type Area Capacity Planning Manager Device Identifier Shelf Expiration Date Model / Serial / Lot Cath Roselia Single Lumen - [id number] Implanted:Qty : 1 on 03/12/2008 at OR [facility] Left: Chest [facility] *DO NOT USE* 07/25/2012 21-4053-24 / / [id number] Sut Steel 6 M654g - [id number] Implanted:Qty : 1 on 11/01/2010 at OR [facility] N/A: Chest DO NOT USE M654G / / Sut Steel 6 M654g - [id number] Implanted:Qty : 1 on 11/01/2010 at OR [facility] N/A: Chest DO NOT USE M654G / / Valve Tarsha Aortic [id number] - [id number] Implanted:Qty : 1 on 11/01/2010 at OR [facility] N/A: Heart [employer] 05/20/2012 2800TFX-25 / / [id number] Description:[email or web address] Mesh Soft 15p01rn - [id number] Implanted:Qty : 1 on 10/10/2019 by Gigi Hendirckson [place] [facility] N/A: Abdomen CR BARD : DAVOL [id number] 05/21/2024 [id number] / / [id number] Lens 22.5 Sn60wf - [id number] - [id number] Implanted:Qty : 1 on 09/15/2020 by Cece Roland MD at [facility] Right: Eye IVA : SURGICAL [id number] 05/13/2025 SN60 WF.225 / [id number] / [id number] Lens 21.5 Sn60wf - [id number] - [id number] Implanted:Qty : 1 on 12/19/2023 by Ramsey Burnett DO at OR [facility] Left: Eye IVA : SURGICAL 12/03/2024 SN60WF.2 [id number] / documented as of this encounter [...] statute hierarchy) Jovita Ovalle Adult Child Health Coding Coordinator resentative (appointed verbally by patient or by statute hierarchy) Care Teams Accounts Payable Coordinator Relationship Specialty Start Date End Date Gregory Rausch MD [address] [place] [address] PCP - General Family Medicine 02/12/20 documented as of this encounter
--- OUTSIDE RECORDS SUMMARY | 2024-10-02 03:29 | External Medical Summary | Summary of Care ---
Author Name Unknown Organization [facility] Address [address] [place] [address] Phone [phone] Care Team Providers Care Abrasive Grinder Name Role Phone Deon Rausch MD Primary Care Provider [phone] Reason for Visit * Reason Onset Date Comments Hospital Follow-Up [facility] 06/05-05/25 7: Cdiff, asymptomatic bacteriuria Medication Administration 06/23/2024 Flu an d/or Pneumo Inj Encounter Details Date Type Department Care Team (Late st Contact Info) Description 06/23/2024 9:00 AM EDT Office Visit Family Practice [facility] [address] [facility] [place] [id number] Massimo Frias MD [address] [place] [address] C. difficile colitis*; Risk and functional assessment; Need for prophylactic vaccination and inoculation against influenza; E. coli UTI; Coronary artery disease involving cher-ae heights coronary artery of cher-ae heights heart without angina pectoris Allergies Active Allergy Reactions Criticality Noted Date [...] (Glucose)Indication s:DM type 2, not at goal ([facility] [...] pump 1 Kit 5 4 Active Nystatin 073388 UNIT/GM External Powder (Nystop)Indications :Candidal intertrigo APPLY [...] BEFORE BEDTIME 180 Tablet 3 4 Active Sulfamethoxazole-Tr imethoprim 800-160 MG Oral Tablet (Bactrim DS)Indications:E. coli UTI Take 1 Tablet by mouth in the morning and 1 Tablet before bedtime. Do all this for 3 days. Until gone. 6 Tablet 4 06/26/20 24 Active Vancomycin HCl 125 MG Oral [...] eye 09/28/2020 Coronary artery disease invo lving cher-ae heights coronary artery of cher-ae heights heart without angina pectoris 12/16/2019 Last Assessment [...] 12/21/2016 Diabetes mellitus 01/05/2014 12/21/2016 LEYVA RESEARCH OTHER*[id number] 01/05/2014 12/21/2016 Axillary pain 11/03/2013 12/21/2016 Obesity, [...] 12/21/2016 FOLLOWING SURGERY, UNSPECIFI ED ([facility] 08/25/2011) 08/26/2011 12/21/2016 ADVANCE DIRECTIVE INFORMATION 04/17/2011 12/21/2016 Overview: Yes, Patient instructed to provide copy of advance directive for provider to review and to be scanned into Electronic Medical Record ADVANCE DIRECTIVE INFORMATION 03/01/2011 12/21/2016 Overview: Yes, Patient instructed to provide copy of advance directive for provider to review and to be scanned into Electronic Medical Record [facility] V710 Clinical Trial*[id number] 12/22/2010 04/14/2011 S/P aortic valve replacement 12/01/2010 08/26/2011 S/P AORTIC VALVE REPLACEMENT - #25 pericardial Mc valve 11/01/2010 06/28/2018 Overview: Aortic valve replacement with #25 pericardial Mc valve, model [id number], serial number [id number] (Dr. Meeks) [facility] V710 Clinical Trial*[id number] 10/18/2010 11/21/2010 Type 2 diabetes mellitus wit [...] PPD 10/26/2019,10/17/2019 Pneumococcal Conjugate Vacci ne, 20-valent ([id number]) 06/22/2023 Pneumococcal Polysaccharide PPV23 (Pneumovax) 01/02/2008 Seasonal [...] Sign Reading Time Taken Comments Blood Pressure 128/80 06/23/2024 9:03 AM EDT Pulse 105 06/23/2024 9:03 AM EDT Temperature 36.9 C (98.4 F) 06/23/2024 9:03 AM ED T Respiratory Rate 18 06/23/2024 9:03 AM EDT Oxygen Saturation 96% 06/23/2024 9:03 AM EDT Inhaled Oxygen Concentration - - Weight 66.7 kg (147 lb) 06/23/2024 9:03 AM EDT Height 149.9 cm (4' 11") 06/23/2024 9:03 AM EDT Body Mass Index 29.69 06/23/2024 9:03 AM EDT documented in this encounter Functional [...] this encounter Patient Instructions * Patient Instructions* Aaliyah Welch LPN - 06/23/2024 9:01 AM EDT Patient Instructions - Fall Prevention (This education is for all patients over 65 regardless of symptoms) Remember to take your current medications as prescribed. In order to prevent falls, you are encouraged to: Exercise Utilize assistive/adaptive devices Avoid multifocal lenses when walking Avoid hazards in home Maintain a regular toileting schedule Any questions please contact our office. Preventing Falls in the Home (This education is for all patients over 65 regardless of symptoms) As you get older, falls are more likely. Thats because your reaction time slows. Your muscles and joints may also get stiffer, making them less flexible. Illness, medications, and vision changes can also affect your balance. A fall could leave you unable to live on your own. To make your home safer, follow these tips: Floors Put nonskid pads under area rugs Remove throw rugs Replace worn floor coverings Tack carpets firmly to each step on carpeted stairs. Put nonskid strips on the edges of uncarpeted stairs Keep floors and stairs free of clutter and cords Arrange furniture so there are clear pathways Clean up any spills right away Bathrooms Install grab bars in the tub or shower Apply nonskid strips or put a nonskid rubber mat in the tub or shower Sit on a bath chair to bathe Use bathmats with nonskid backing Lighting Keep a flashlight in each room Put a nightlight along the pathway between the bedroom and the bathroom [employer] Patient Education Copyright 2008 - 2010 [employer] except where otherwise noted Preventing Falls: Exercises to Improve Balance, Flexibility, Strength, and Staying Power (This education is for all patients over 65 regardless of symptoms) Certain types of exercises may help make you less likely to fall. Try the ones below. Or do other exercises that your healthcare provider suggests. Depending on your health, you may need to start slowly. Dont let that stop you. Even small amounts of exercise can help you. Be sure to talk to yourhealthcare provider before starting any exercise program. Improve Balance Many types of exercise can help improve balance. Rafael chi and yoga are good examples. Heres another one to try. You can do it anytime and almost anywhere. Stand next to a counter or solid support. Push yourself up onto your tiptoes. Hold for 5 seconds. If you start to lose your balance, hold on to the counter. Rest and repeat 5 times. Work up to holding for 20 to 30 seconds, if you can. Increase Flexibility Being more flexible makes it easier for you to move around safely. Try exercises like the seated hamstring stretch. Sit in a chair and put one foot on a stool. Straighten your leg and reach with both hands down either side of your leg. Reach as far down your leg as you can. Hold for about 20 seconds. Go back to the starting position. Then repeat 5 times. Switch legs. Build Strength Resistance exercises help build strength. You can do them without equipment. Or you can use weights, elastic bands, or special machines. One such exercise is called the biceps curl. You can hold a 1 pound weight or even a can of soup. Do this exercise at least 3 times a week. Strive for everyday. Sit up straight in a chair. Keep your elbow close to your body and your wrist straight. Bend your arm, moving your hand up to your shoulder. Then slowly lower your arm. Repeat 5 times. Switch to the other arm. Build Your Staying Power Aerobic exercises make your heart and lungs stronger so you can keep moving longer. Walking and swimming are two of the best types of exercises you can do. Using a stationary bike is great, too. Find an aerobic exercise that you enjoy. Start slowly and build up. Even 5 minutes is helpful. Aimfor a goal of 30 minutes, at least 3 times a week. You dont have to do 30 minutes in one session. Break it up and walk a little throughout the day. More Helpful Tips Start easy. Slowly work up to doing more. Talk with your healthcare provider about the best exercises for you. Call senior centers or health clubs about exercise programs. If needed, have a family member watch you walk every so often to check your stability. Exercise with a friend. Choose an activity you both enjoy. Try exercises that you can do anytime, anywhere. Here are two examples. Have someone with you when you first try these: Practice walking by placing one foot right in front of the other. Stand up and sit down 10 times. Repeat this throughout the day. [employer] Patient Education Copyright 2008 [employer] except where otherwise noted. Preventing Falls: Moving Safely Using a Cane or Walker (This education is for all patients over 65 regardless of symptoms) Keep the cane away from your feet so you dont trip. A walking aid, such as a cane or walker, can help you stay more independent and avoid falls. Remember to keep your walking aid within easy reach when youre in a chair or in bed. And learn how to use it safely so you dont injure yourself. Using a Cane If you have a stronger side, hold the cane on that side. Get your balance. Move the cane and your weaker leg forward. Support your weight on both the cane and your weaker side. Step with your stronger leg. Start again from step 1. If youre using a folding walker, be sure you know how to lock it open. Check that its locked open before each use. Using a Walker Roll the walker (or lift it, if youre using one without wheels) forward about 12 inches. Step forward with your weaker leg first. Use the walker to help keep your balance. Bring your other foot forward to the center of the walker. Start again from step 1. Helpful Tips Check with your healthcare provider about the right walking aid to use. Ask about a walker with a seat attached. Check the tips of your cane or walker to make sure they have nonskid covers. Move slowly from room to room. Dont lim. Sit down to get dressed. Use a crystal pack or backpack to keep your hands free. Get help for jobs that mean climbing, even on a stepstool. [employer] Patient Education Copyright 2008 - 2010 [employer] except where otherwise noted. Urinary Incontinence Plan of Care Documentation: (This education is for all patients over 65 regardless of symptoms) Current medications reconciled. Patient encouraged to: Practice kegal exercises Provide education materials Use the restroom every 2 hours throughout the day Limit caffeine, alcohol, spicy foods and acidic foods Keep a bladder diary Limit fluid intake 3-4 hours before bed Lose weight Prevent constipation Take fluid pills at a time when you can get to the bathroom quickly Control sugar better if diabetic Limit fluid intake to 60 oz. per day Wear support stockings (TEDs)if you have edema Aaliyah Welch LPN 06/23/2024 Kegel Exercises Kegel exercises dont require special clothing or equipment. Theyre easy to learn and simple to do. And if you do them right, no one can tell youre doing them, so they can be done almost anywhere. Your doctor, nurse, or physical therapist can answer any questions you have and help you get started. A Weak Pelvic Floor The pelvic floor muscles may weaken due to aging, and vaginal childbirth, injury, surgery, chronic cough, or lack of exercise. If the pelvic floor is weak, your bladder and other pelvic organs may sag out of place. The urethra may also open too easily and allow urine to leak out. Kegel exercises can help you strengthen your pelvic floor muscles so they can better support the pelvic organs and control urine flow. How Kegel Exercises Are Done Try each of the Kegel exercises described below. When youre doing them, try not to move your leg, buttock, or stomach muscles. While youre urinating, try to stop the flow of urine. Start and stop it as often as you can. Contract as if you were stopping your urine stream, but do it when youre not urinating. Tighten your rectum as if trying not to pass gas. Contract your anus, but dont move your buttocks. Helpful Hints Do your Kegels as often as you can. The more you do them, the faster youll feel the results. Pick an activity you do often as a reminder. For instance, do your Kegels every time you sit down. Tighten your pelvic floor before you sneeze, get up from a chair, cough, laugh, or lift. This protects your pelvic floor from injury and can help prevent urine leakage. Try to hold each Kegel for a slow count to five. You probably wont be able to hold them for thatlong at first, but keep practicing. It will get easier as your pelvic floor gets stronger. Eventually, special weights that you place in your vagina may be recommended to help make your Kegels even more effective. [employer] Patient Education Copyright 2009 - 2010 [employer] except where otherwise noted. Here are some helpful tips for your urinary incontinence: (This education is for all patients over 65 regardless of symptoms) Practice Kegel exercises Use the restroom every 2 hours throughout the day Limit caffeine, alcohol, spicy foods, and acidic foods Keep a bladder diary Limit fluid intake 3-4 hours before bed Lose weight Prevent constipation Take fluid pills at a time when can get to the bathroom quickly Control sugar better if diabetic Limit fluid intake to 60 oz. per day Any questions, please feel free to contact our office. documented in this encounter Progress Notes * Massimo Frias MD - 06/23/2024 9:28 AM EDT SUBJECTIVE: Jovita Rose is a 63 year old female here for Hospital Follow-Up ([facility] 06/05-06/10: Cdiff, asymptomatic bacteriuria ) and Medication Administration (Flu and/or Pneumo Inj) . Here w/caregiver, Stephanie. Was sent to the ER on June 05, 2024 from our office for frequent watery diarrhea many times a day along with decreased p.o. intake confusion lightheadedness. She had been treated with outpatientvanco for C diff infection and was prescribed deficit but was unable to get it. She was not having any improvement in fact was worsening. She was admitted to the hospital and discharged on June 10. She had abdominal pain in the left side. No fever or chills. Follows with GI. Has not had a fecal transplant. She was switched to Dificid and had improvement in her symptoms. She noted some burning with urination prior to admission and then had improvement. Urine culture was done that showed pansensitive E coli. The decision was made not to treat at that point because she was not complaining of any burningand there was concern that any antibiotic could make the C diff situation worse. Since she has been home her stools have been much better, solid formed, but still frequent about 5 times a day. She does now have dysuria and urinary frequency going to the bathroom urination least every hour and having new urinary incontinence at night soaking through the bed which is new for her. Still no fever or chills. Left lower quadrant pain is improved. No flank pain. ROS: Negative except above. Past Medical History: Diagnosis Date Aortic valve stenosis Cataract, senile Diarrhea DM type 2, not at goal ([facility]) Diabetes Type II, Uncontrolled Dyslipidemia, goal LDL below 70 2003 ANIVAL (generalized anxiety disorder) 12/05/2017 Heart failure, diastolic, due to HTN ([facility]) 07/23/2013 History of breast cancer 10/01/2014 History of colon cancer 10/01/2014 HTN, goal below 130/80 Hypothyroidism Incisional hernia 10/10/2019 MAL JOSE BREAST UP-OUTER - pT2 pN2 M0, stage IIIa 02/13/2008 Malignant neoplasm of female breast (HCC) Medical marijuana use 12/09/2019 Miosis Motion sickness LEYVA (nonalcoholic steatohepatitis) 06/28/2018 Obesity, Class I, BMI 30.0-34.9 (see actual BMI) 07/31/2023 Obstructive sleep apnea 10/31/2010 DANYELLE (obstructive sleep apnea) Persistent insomnia 09/04/2017 Pneumoperitoneum 06/06/2023 Recurrent major depressive disorder, in full remission ([facility]) 12/05/2017 S/P AORTIC VALVE REPLACEMENT - #25 pericardial Mc valve 11/01/2010 Type 2 diabetes mellitus with diabetic neuropathy, with long-term current use of insulin ([facility]) 08/23/2018 Ventral hernia without obstruction or gangrene 12/21/2016 Past Surgical History: Procedure Laterality Date CARPAL TUNNEL SURGERY Left 12/09/2014 NEUROPLASTY MEDIAN NERVE AT CARPAL TUNNEL performed by Levi Peralta MD at [facility] CARPAL TUNNEL SURGERY Right 02/23/2015 NEUROPLASTY MEDIAN NERVE AT CARPAL TUNNEL performed by Levi Peralta MD at [facility] CATARACT SURGERY,COMPLEX Left 12/19/2023 LEFT EXTRACAPSULAR CATARACT REMOVAL COMPLEX WITH IOL performed by Ramsey Burnett DO at [facility] DELIVERY x4 COLONOSCOPY, DIAGNOSTIC (RECTUM) 05/23/2011 COLONOSCOPY FLEXIBLE PROXIMAL DIAGNOSTIC performed by BELINDA JAMES at ENDOSCOPY [facility] COLONOSCOPY, DIAGNOSTIC (RECTUM) 12/08/2013 COLONOSCOPY FLEXIBLE PROXIMAL DIAGNOSTIC performed by Gigi Haro MD at ENDOSCOPY [facility] COLONOSCOPY, DIAGNOSTIC (RECTUM) 07/02/2018 poor prep, repeat / [facility] COLONOSCOPY, DIAGNOSTIC (RECTUM) 07/03/2018 adenomatous polyps, diverticulosis, repeat 3 yrs/[facility] COLONOSCOPY, DIAGNOSTIC (RECTUM) 09/13/2022 benign adenomatous polyps, diverticulosis, repeat 3 yrs / COLONOSCOPY FLEXIBLE PROXIMAL DIAGNOSTIC performed by Rajinder Wheeler MD at [facility] CORONARY ANGIOGRAPHY W/RIGHT+LEFT CATH 10/10/2010 CORONARY ANGIOGRAPHY W/RIGHT+LEFT CATH performed by MARNI SULLIVAN at CARDIAC LABS [facility] CV ECHO, ALMA INTRAOPERATIVE N/A 06/21/2023 ECHOCARDIOGRAPHY, TRANSESOPHAGEAL; INCLUDING PROBE PLACEMENT, IMAGE ACQUISITION, INTERPRETATION ANDREPORT performed [place] [facility] [facility] [place]GD, FLEXIBLE, DIAGNOSTIC 07/02/2018 erosive gastropathy, repeat 2 yrs / [facility] EGD, FLEXIBLE, DIAGNOSTIC 04/15/2021 normal, repeat 3 yrs / ESOPHAGOGASTRODUODENOSCOPY (EGD), FLEXIBLE, TRANSORAL, DIAGNOSTIC performed by Rajinder Wheeler MD at ENDOSCOPY [facility] EGD, FLEXIBLE, DIAGNOSTIC 06/08/2023 ESOPHAGOGASTRODUODENOSCOPY (EGD), FLEXIBLE, TRANSORAL, DIAGNOSTIC performed by Sushant Alicea MD at [facility] EGD, FLEXIBLE, DIAGNOSTIC N/A 06/04/2023 erythematous mucosa gastric body/EGD/MN EGD, FLEXIBLE, DIAGNOSTIC N/A 06/06/2023 large area of greater curvature, gastric body ischemia with signs of gastric wall necrosis/EGD/MN ESOPHAGOSCOPY, FLEXIBLE, DIAGNOSTIC N/A 06/06/2023 ESOPHAGOSCOPY DIAGNOSTIC performed by Sushant Alicea MD at [place] [facility] EXC BREAST LESION RADMARK 01/30/2008 EXCISION OF BREAST LESION RADIOLOGICAL MARKER performed by PAUL PEDRO at OR [facility] EXPLORATION OF ABDOMEN N/A 06/06/2023 EXPLORATORY LAPAROTOMY performed by Sushant Alicea MD at [facility] EXPLORATION OF ABDOMEN N/A 06/08/2023 EXPLORATORY LAPAROTOMY performed by Sushant Alicea MD at [place] [facility] [place]OT/TOE SURGERY NEC Foot/Toes Surgery Proc Unlisted HYSTEROSCOPY W/BIOPSY AND/OR POLYPECTOMY W/WO D&C 01/30/2008 HYSTEROSCOPY WITH BIOPSY performed by ABIEL CHOI JR at OR [facility] HYSTEROSCOPY W/BIOPSY AND/OR POLYPECTOMY W/WO D&C 06/21/2011 HYSTEROSCOPY WITH BIOPSY AND/OR POLYPECTOMY performed by ABIEL CHOI JR at OR [facility] IDENTIFY SENTINEL NODE, RADIOACTIVE TRACER 02/24/2008 INJECTION PROCEDURE FOR IDENTIFICATION SENTINEL NODE performed by PAUL PEDRO at OR [facility] IMPLANT MESH W/ ABD HERNIA REPR/DEBRIDE N/A 10/10/2019 IMPLANTATION MESH WITH INCISIONAL/VENTRAL HERNIA performed by Gigi Hendrickson MD at [place] [facility] INFORMATION Left *MRI* 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 MASTECTOMY, SIMPLE, COMPLETE 02/24/2008 MASTECTOMY SIMPLE COMPLETE performed by PAUL PEDRO at OR [facility] NEG PRESSURE WOUND THERAPY DME >50 SQ CM N/A 06/06/2023 NEGATIVE PRESSURE WOUND THERAPY GREATER THAN 50SQ CM performed by Sushant Alicea MD at [place] [facility] OTHER [place] 112 Signed, 12/07/2020 OTHER Avastin OD consent signed, 02/28/2021-02/28/2022 PARTIAL COLECTOMY W/ANASTOMOSIS 2004 Colectomy Partial REMOVAL OF APPENDIX Appendectomy REMOVAL OF BREAST IMPLANT 07/11/2010 REMOVAL OF INTACT MAMMARY IMPLANT performed by DEON BARBOSA II at OR [facility] REMOVAL OF OVARY/OVIDUCT(S) 08/25/2011 SALPINGO OOPHORECTOMY performed by ABIEL CHOI JR at OR [facility] REMOVE ARMPIT LYMPH NODES, COMPLETE 02/24/2008 AXILLARY LYMPHADENECTOMY COMPLETE performed by PAUL PEDRO at OR [facility] REMOVE CATARACT, INSERT LENS PROSTH Right 09/15/2020 EXTRACAPSULAR CATARACT REMOVAL WITH INTRAOCULAR LENS performed by Cece Cook MD at OR [facility] REPAIR INITIAL INCISIONAL OR VENTRAL HERNIA; REDUCIBLE N/A 10/10/2019 REPAIR INITIAL INCISIONAL /VENTRAL HERNIA REDUCIBLE performed by Gigi Hendrickson MD at [place] [facility] REPLACE AORTIC VALVE, PERCUTANEOUS FEMORAL Bilateral 11/06/2017 REPLACE AORTIC VALVE, PERCUTANEOUS FEMORAL performed by Dawood Laird MD at [facility] REPLACE AORTIC VALVE, PERCUTANEOUS FEMORAL 11/06/2017 REPLACE AORTIC VALVE, PERCUTANEOUS FEMORAL performed by Belinda Liang MD at [facility] REPLACEMENT AORTIC VALVE, BYPASS WITH PROSTHETIC VALVE 11/01/2010 REPLACEMENT AORTIC VALVE performed by RITA MEEKS at OR [facility] REVISION OF ULNAR NERVE AT ELBOW Right 02/23/2015 NEUROPLASTY AND OR TRANSPOSITION ULNAR NERVE ELBOW performed by Levi Peralta MD at [facility] SIGMOIDOSCOPY, DIAGNOSTIC N/A 06/08/2023 SIGMOIDOSCOPY FLEXIBLE DIAGNOSTIC performed by Sushant Alicea MD at 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 (Adult - for ages 18 years and over): No Does your family have trouble paying for medicine? (Household - for ages 0-17 years): Not on file Food Insecurity: No Food Insecurity (04/08/2024) Food Insecurity Do you need food for this week? (Adult - for ages 18 years and over): No Are you able to get enough food for your family? (Household - for ages 0-17 years): Not on file Does your family need food this week? (Household - for ages 0-17 years): Not on file Do you always have enough food for your family? (Household - for ages 0-17 years): Not on file Recent Concern: Food Insecurity - Food Insecurity Present (01/22/2024) Food Insecurity Do you need food for this week? (Adult - for ages 18 years and over): Yes Are you able to get enough food for your family? (Household - for ages 0-17 years): Not on file Does your family need food this week? (Household - for ages 0-17 years): Not on file Do you always have enough food for your family? (Household - for ages 0-17 years): Not on file Transportation Needs: No Transportation Needs (04/08/2024) Transportation Needs Do you have trouble getting a ride to medical visits or work? (Adult - for ages 18 years and over):Never True Does your family have a hard time getting a ride to doctors visits? (Household - for ages 0-17 years): Not on file Has lack of transportation kept you from medical appointments, meetings, work, or from getting things needed for daily living? Check all that apply. (Adult - for ages 18 years and over): No Do you (or your family) have trouble finding or paying for a ride (transportation)? (Household - for ages 0-17 years): Not on file Social Connections: Socially Integrated (04/08/2024) Social Connections How often do you feel lonely or isolated from those around you? (Adult - for ages 18 years and over): Never Housing Stability: Low Risk (04/08/2024) Housing Stability Do you currently live in a detention or have no steady place to sleep at night? (Adult - for ages 18 years and over): No Do you think you are at risk of becoming homeless? (Adult - for ages 18 years and over): No Does your family worry about paying for your home or becoming homeless? (Household - for ages 0-17 years): Not on file Are you homeless or worried that you might be in the future? (Adult - for ages 18 years and over): No Are you (or your family) homeless or worried that you might be in the future? (Household - for ages0-17 years): Not on file Family History Problem Relation Name Age of Onset Heart Disorder Mother CAD - at age 56 during second CABG Heart Disorder Father from [place] at age 51 Stroke Sister Alcohol and Other Disorders Associated Brother Heart Disorder Brother Older brother - CABG X 4 at age 65. Younger Brother [place] at age 45 Other (Other) Brother HIV +; [place] at age 31 Diabetes Grandmother (Maternal) Alcohol and Other Disorders Associated Son Heart Disorder Son Coartaction of Aorta Diabetes Aunt (Unspecified) Current Outpatient Medications Medication Sig Dispense Refill Sulfamethoxazole-Trimethoprim 800-160 MG Oral Tablet (Bactrim DS) Take 1 Tablet by mouth in the morning and 1 Tablet before bedtime. Do all this for 3 days. Until gone. 6 Tablet 0 aspirin enteric coated 81 MG TBEC [...] both feet once daily. 400 g 2 Magnesium Oxide -Mg Supplement 400 (240 Mg) MG Oral Tablet (Mag-Ox) One tablet by mouth daily in the morning 90 Tablet 3 Insulin Aspart 100 UNIT/ML Injection Solution (NovoLOG) Use up to 50 units per day in Omnipod. Omnipod 5 G6 Intro (Gen 5) Kit Use as directed. Use to delivery insulin via insulin pump 1 Kit 5 Nystatin 411215 UNIT/GM External Powder (Nystop) APPLY TOPICALLY TO AFFECTED AREA 3 TIMES A DAY. 60g 1 Loperamide HCl 2 MG Oral Capsule (Imodium A-D) Take 1 Capsule by mouth 4 times a day as needed for Diarrhea. Dificid 200 MG Oral Tablet (Fidaxomicin) Take 1 Tablet by mouth in the morning and 1 Tablet before bedtime. 28 Tablet 0 Saccharomyces boulardii 250 MG Oral Capsule (Florastor) [...] skin once a week. 9 mL 1 Sjstvtvxjc-Ijjmeos-Dnuhoawo 50-325-40 MG Oral Capsule (Fiorinal) Take 1 [...] MORNING AND BEFORE BEDTIME 180 Tablet 3 No current facility-administered medications for this visit. Physical: BP 128/80 | Pulse 105 | Temp 36.9 C (98.4 F) (Tympanic) | Resp 18 | Ht 1.499 m (4' 11") | Wt 66.7 kg (147 lb) | LMP 04/07/2011 | SpO2 96% | BMI 29.69 kg/m | BSA 1.67 m General-No apparent Distress Head, Eyes, Ears, Nose, Throat--Normocephalic, atraumatic Neck-Supple Lymph-no lymphadenopathy Lungs-Clear to Auscultation bilaterally Cardiovascular--Regular rate & Rhythm, +s1, s2, no murmur Abdomen-soft, +suprapubic and LLQ tender, nondistended + bowel sounds. No rebound Extremities--no edema Neuro-alert & oriented x3 (A04.72) C. difficile colitis (primary encounter diagnosis) Plan: improved. Complete full course of difficid. F/u GI as sched next week. If worsening symptoms on bactrim will need to prolong dicificd (Z13.9) Risk and functional assessment Plan: (Z23) Need for prophylactic vaccination and inoculation against influenza Plan: INFLUENZA VAC., TRIVALENT, HD, PF, 65 AND ABOVE, 0.5 ML IM (FLUZONE HD) (N39.0, B96.20) E. coli UTI Plan: Sulfamethoxazole-Trimethoprim 800-160 MG Oral Tablet (Bactrim DS) Patient is very symptomatic for UTI now--will treat 3d bactrim, cautioned for possible worsening C Diff symptoms --CONSIDER vaginal estradiol cream for prevention of UTIs--she wants to consider further (I25.10) Coronary artery disease involving cher-ae heights coronary artery of cher-ae heights heart without angina pectoris Plan: cont mgmt/borderline tachy today I spent a total of 40-54 minutes (exact time 40 mins) on the date of service in preparation, delivery, and documentation of the care provided to Jovita Rose excluding any time spent in the performance of separately billed services or time spent by another provider/QHP. (This note was completed using the dictation program Fluency Direct. As such, there may be misspellings, word substitutions, or other variations that should not change the essence of the clinical content of this encounter note.If there is need for further clarification, please direct questions to the provider listed above.) Massimo Frias MD * Aaliyah Welch LPN - 06/23/2024 9:01 AM EDT Urinary Incontinence Plan of Care Documentation: (This education is for all patients over 65 regardless of symptoms) Current medications reconciled. Patient encouraged to: Practice kegal exercises Provide education materials Use the restroom every 2 hours throughout the day Limit caffeine, alcohol, spicy foods and acidic foods Keep a bladder diary Limit fluid intake 3-4 hours before bed Lose weight Prevent constipation Take fluid pills at a time when you can get to the bathroom quickly Control sugar better if diabetic Limit fluid intake to 60 oz. per day Wear support stockings (TEDs)if you have edema Aaliyah Welch LPN 06/23/2024 PRE - ADMINISTRATION DOCUMENTATION Are you experiencing any cold symptoms or fever? No Have you had Guillain-Melville Syndrome (an illness that causes paralysis) within the last 6 weeks? No Have you had the flu shot in the past? YES Have you ever had a reaction to the flu shot? No Aaliyah Welch LPN, 06/23/2024 9:06 AM Immunization Administration Documentation Time Out Procedure Performed: Yes Patient Identified (Ask Name/Date of ): Yes Does the patient have a fever greater than 101 degrees today? No Patient allergic to latex? No VFC Stock: No Immunization(s) verified: Yes, Immunization Name: Flu, VIS Sheet(s) given: Yes Verified Side and Site: Yes Verified Shot(s) with Parent(s)/Patient: Yes documented in this encounter Nursing Notes * Aaliyah Welch LPN - 06/23/2024 9:03 AM EDT The patient has been properly identified by confirmation of name and date of . Chief Complaint Patient presents with Hospital Follow-Up [facility] 06/05-06/10: Cdiff, asymptomatic bacteriuria documented in this encounter Plan of Treatment Upcoming Encounters Date Type Department Care Team (Late st Contact Info) Description 06/26/2024 9:00 AM EDT Office Visit Nephrology, [facility] [address] [place] [address] Fidelina Baumann MD [address] [facility] [place] [address] 06/30/2024 10:00 AM EDT Office Visit Gastroenterology, [facility] [address] [facility] [place] [address] Arina Knapp PA-C [address] [place] [address] 07/08/2024 6:10 PM EDT Pharmacy Pharmacy, [facility] [address] [facility] [place] [address] Pharmacist1, [facility] [address] [facility] [place] [address] 07/21/2024 2:00 PM EDT Scheduled Telephone [facility], [facility] [address] [facility] [place] [address] Lakesha King, [place] [address] [facility] [place] [address] 07/31/2024 11:15 AM EST Office Visit Ophthalmology, [facility] [address] [facility] [place] [address] Ramsey Burnett, DO [address] [facility] [place] [address] 08/12/2024 9:20 AM EST Office Visit Family Practice [facility] [address] [place] [address] Deon Rausch MD [address] [facility] [place] [address] 11/03/2024 11:00 AM EST Office Visit Sleep Disorders Ctr [facility] [address] [facility] [place] [id number] Christina Birch, [address] [facility] [place] [address] 11/04/2024 9:30 AM EST Office Visit Gastroenterology, [facility] [address] [facility] [place] [address] Tia Taylor CRNP [address] [facility] [place] [address] Scheduled Procedures Name Priority Associated Diagnoses Date/Ti [...] 10/25/2021, 02/16/2021, 01/18/2021 CKD PHOS USE SMARTSET 25682 06/18/202405/26, 06/16/2023, 06/15/2023, Additional history exists HbA1c 08/01/2024 01/30/2024, 08/25, 07/31/2023, Additional history exists Diabetic Eye Exam 09/13/2024 09/13/2023, , 09/13/2023, Additional history exists B-12 09/18/2024 09/18/2023, 08/24, 2020, Additional history exists GFR 11/01/2024 05/01/2024, 12/23, 10/15/2023, Additional history exists Albumin/Creatinine Ratio 01/07/2025 024, 03/09/2023, 12/22/2022, Additional history exists CKD HGB USE SMARTSET 96597 01/07/202501/07, 01/08/2024, 10/15/2023, Additional history exists TSH [...] encounter Medical Devices Implanted Type Area Senior Systems Analyst Device Identifier Shelf Expiration Date Model / Serial / Lot Cath Roselia Single Lumen - [id number] Implanted:Qty : 1 on 03/12/2008 at OR [facility] Left: Chest [employer] *DO NOT USE* 07/25/2012 21-4053-24 / / [id number] Sut Steel 6 M654g - [id number] Implanted:Qty : 1 on 11/01/2010 at OR [facility] N/A: Chest DO NOT USE M654G / / Sut Steel 6 M654g - [id number] Implanted:Qty : 1 on 11/01/2010 at OR [facility] N/A: Chest DO NOT USE M654G / / Valve Tarsha Aortic [id number] - [id number] Implanted:Qty : 1 on 11/01/2010 at OR [facility] N/A: Heart [employer] DANIEL 05/20/2012 2800TFX-25 / / [id number] Description:[email or web address] Mesh Soft 70i49kk - [id number] Implanted:Qty : 1 on 10/10/2019 [place] Gigi Hendrickson [place] [facility] [place]: Abdomen CR BARD : DAVOL [id number] 05/21/2024 [id number] / / [id number] Lens 22.5 Sn60wf - [id number] - [id number] Implanted:Qty : 1 on 09/15/2020 by Renaldo Cook, Cece Acosta MD at [facility] Right: Eye IVA : SURGICAL [id number] 05/13/2025 SN60 WF.225 / [id number] / [id number] Lens 21.5 Sn60wf - [id number] - [id number] Implanted:Qty : 1 on 12/19/2023 by Ramsey Burnett DO at OR [facility] Left: Eye IVA : SURGICAL 12/03/2024 SN60WF.2 15 / [id number] / documented as of this encounter Visit Diagnoses Diagnosis C. difficile colitis- Primary Intestinal infection due to clostridium difficile Risk and functional assessment Screening for unspecified condition Need for prophylactic vaccination and inoculation against influenza E. coli UTI Urinary tract infection, site not specified Coronary artery disease involving cher-ae heights coronary artery of cher-ae heights heart without angina pectoris documented in this encounter Advance Directives * [...] statute hierarchy) Jovita Ovalle Adult Child Health Insurance Consultant resentative (appointed verbally by patient or by statute hierarchy) [email or web address] Care Teams Abrasive Grinder Relationship Specialty Start Date End Date Deon Rausch MD [address] [place] [address] PCP - General Family Medicine 02/12/20 documented as of this encounter
--- OUTSIDE RECORDS SUMMARY | 2024-10-02 03:30 | External Medical Summary | Summary of Care ---
Author Name Unknown Organization [facility] Address [address] [place] [address] Phone [phone] Care Team Providers Care Security And Compliance Project Manager Name Role Phone Gregory Rausch MD Primary Care Provider [phone] Reason for Visit * Reason Onset Date Comments Home Monitoring Orders Only 06/19/2024 Encounter Details Date Type Department Care Team (Late st Contact Info) Description 06/19/2024 Home Monitoring Care Coordination [address] [place] [address] Fidelina Baumann MD [address] [place] [address] Hypertension* Allergies Active Allergy Reactions Criticality Noted Date Comments Adhesive Tape 07/02/2017 Can tolerate band-aids Glycerin Other (Please comment) 03/12/2008 Topical agents with glycein-burning & itching Lactose 12/09/2014 Dairy - gas Lisinopril Cough 01/21/2010 Monosodium Glutamate Edema Other 03/12/2008 Hands and feet Penicillins Rash 11/14/2007 documented as of this encounter (statuses as of 06/20/2024) Medications Medication Sig Dispensed Refills Start Date [...] Capsules by mouth in the morning. Active Adams ArmsTouch Verio In Vitro Strip (Glucose Blood) Use [...] once daily. 400 g 2 01/10/2024 Active Magnesium Oxide -Mg Supplement 400 [...] pump 1 Kit 5 04/10/2024 Active Nystatin 271718 UNIT/GM External Powder (Nystop)Indications: Candidal intertrigo APPLY [...] a week. 9 mL 1 06/16/2024 Active Unqfeqpvfc-Gnpcarm-A affeine 50-325-40 MG Oral Capsule (Fiorinal)Indication s:Acute intractable tension-type headache Take 1 Capsule by mouth every 4 hours as needed for Headache. 30 Capsule 06/16/2024 Active Fluticasone Propionate 50 MCG/ACT Nasal Suspension (Flonase)Indications :Dizziness Administer 2 Sprays into each nostril in the morning. 16 g 3 06/17/2024 Active documented as of this encounter (statuses as of 06/20/2024) Active Problems Problem Noted Date Diagnosed Date [...] as of this encounter (statuses as of 06/20/2024) Resolved Problems Problem Noted Date Diagnosed Date [...] 12/21/2016 Diabetes mellitus 01/05/2014 12/21/2016 LEYVA RESEARCH OTHER*[id number] 01/05/2014 12/21/2016 Axillary pain 11/03/2013 12/21/2016 Obesity, [...] Record [facility] V710 Clinical Trial*[id number] 12/22/2010 04/14/2011 S/P aortic valve replacement 12/01/2010 08/26/2011 S/P AORTIC VALVE REPLACEMENT - #25 pericardial Mc valve 11/01/2010 06/28/2018 Overview: Aortic valve replacement with #25 pericardial Mc valve, model 2800TFX, serial number [id number] (Dr. Walker) [facility] V710 Clinical Trial*[id number] 10/18/2010 11/21/2010 Type 2 diabetes mellitus wit [...] as of this encounter (statuses as of 06/20/2024) Immunizations Name Administration Dates Next Due COVID-19 mRNA, LNP-s, No Pre serve, 2-Dose Series (Moderna) 10/25/2021,02/16/2021,01/18/2021 HEP A - Hepatitis A (Adult > 18 yrs) 06/07/2018, 12/05/2017 Hepatitis B, 20+ yrs 06/07/2018,01/08/20 18,12/05/2017,06/15,10/27/2013,09/12/2013 Pneumococcal Conjugate Vacci ne, 20-valent ([id number]) 06/22/2023 Pneumococcal Polysaccharide PPV23 (Pneumovax) 01/02/2008 Seasonal [...] Progress Notes * Ruth Moreno LPN - 06/20/2024 9:26 [...] as cc365 CC365 FYI * [facility] - 06/19/2024 11:48 AM EDT Spoke to patients aide (Jennifer) who expressed concerns about patients inability to provide consistent readings and participate in the program. Paul Klein Community Programs Specialist documented in this encounter Plan of Treatment Upcoming Encounters Date Type Department Care Team (Late st Contact Info) Description 06/20/2024 9:30 AM EDT Scheduled Telephone [facility], [address] [place] [address] Coordinator, [facility] [address] [facility] [place] [address] 06/23/2024 9:00 AM EDT Office Visit [facility] [address] [facility] [place] [address] Massimo Frias MD [address] [facility] [place] [address] 06/26/2024 9:00 AM EDT Office Visit Nephrology, [facility] [address] [facility] [place] [address] Fidelina Baumann MD [address] [facility] [place] [address] 06/30/2024 10:00 AM EDT Office Visit Gastroenterology, [facility] [address] [facility] [place] [address] Arina Knapp PA-C [address] [place] [address] 07/08/2024 6:10 PM EDT Pharmacy Pharmacy, [facility] [address] [facility] [place] [address] Pharmacist1, [facility] [address] [facility] [place] [address] 07/31/2024 11:15 AM EST Office Visit Ophthalmology, [facility] [address] [facility] [place] [address] Ramsey Burnett DO [address] [facility] [place] [address] 08/12/2024 9:20 AM EST Office Visit [facility] [address] [facility] [place] [address] Gregory Rausch MD [address] [facility] [place] [address] 11/03/2024 11:00 AM EST Office Visit [facility] Disorders Ctr [facility] [address] [place] [phone] Christina Bircharet, [address] [place] [address] 11/04/2024 9:30 AM EST Office Visit Gastroenterology, [facility] [address] [facility] [place] [address] Tia Taylor CRNP [address] [place] [address] Scheduled Procedures Name Priority Associated Diagnoses Date/Ti [...] Additional history exists CKD PHOS USE SMARTSET 26550 06/18/202405/26, 06/16/2023, 06/15/2023, Additional history exists HbA1c 08/01/2024 01/30/2024, 08/25, 07/31/2023, Additional history exists Diabetic Eye Exam 09/13/2024 09/13/2023, , 09/13/2023, Additional history exists B-12 09/18/2024 09/18/2023, 08/24, 2020, Additional history exists GFR 11/01/2024 05/01/2024, 12/23, 10/15/2023, Additional history exists Albumin/Creatinine Ratio 01/07/2025 024, 03/09/2023, 12/22/2022, Additional history exists CKD HGB USE SMARTSET 97340 01/07/202501/07, 01/08/2024, 10/15/2023, Additional history exists TSH [...] encounter Medical Devices Implanted Type Area Manager Of Information Device Identifier Shelf Expiration Date Model / Serial / Lot Cath Roselia Single Lumen - [id number] Implanted:Qty : 1 on 03/12/2008 at [facility] Left: Chest [employer] *DO NOT USE* 07/25/2012 21-4053-24 / / [id number] Sut Steel 6 M654g - [id number] Implanted:Qty : 1 on 11/01/2010 at OR [facility] N/A: Chest DO NOT USE M654G / / Sut Steel 6 M654g - [id number] Implanted:Qty : 1 on 11/01/2010 at OR [facility] N/A: Chest DO NOT USE M654G / / Valve Tarsha Aortic [id number] - [id number] Implanted:Qty : 1 on 11/01/2010 at OR [facility] N/A: Heart [employer] 05/20/2012 2800TFX-25 / / [id number] Description:[email or web address] Mesh Soft 48q42oj - [id number] Implanted:Qty : 1 on 10/10/2019 [place] Gigi Hendrickson [place] [facility] [place]: Abdomen CR BARD : DAVOL [id number] 05/21/2024 [id number] / / [id number] Lens 22.5 Sn60wf - [id number] - [id number] Implanted:Qty : 1 on 09/15/2020 by Renaldo Cook, Cece Acosta MD at [facility] Right: Eye IVA : SURGICAL [id number] 05/13/2025 SN60 WF.225 / [id number] / [id number] Lens 21.5 Sn60wf - [id number] - [id number] Implanted:Qty : 1 on 12/19/2023 by Ramsey Burnett DO at OR [facility] Left: Eye IVA : SURGICAL 12/03/2024 SN60WF.2 15 / [id number] / documented as of this encounter [...] statute hierarchy) Jovita Ovalle Adult Child Health Finished Cloth Checker resentative (appointed verbally by patient or by statute hierarchy) Care Teams Security And Compliance Project Manager Relationship Specialty Start Date End Date Gregory Rausch MD [address] [place] [address] PCP - General Family Medicine 02/12/20 documented as of this encounter
--- OUTSIDE RECORDS SUMMARY | 2024-10-02 03:30 | External Medical Summary | Summary of Care ---
Author Name Unknown Organization [facility] Address [address] [place] [address] Phone [phone] Care Team Providers Care Circle Saw Operator Name Role Phone Gregory Rausch MD Primary Care Provider [phone] Reason for Visit * Reason Onset Date Comments Home Monitoring Orders Only 06/19/2024 Encounter Details Date Type Department Care Team (Late st Contact Info) Description 06/19/2024 Home Monitoring Care Coordination [address] [place] [address] Fidelina Baumann MD [address] [place] [address] Hypertension* Allergies Active Allergy Reactions Criticality Noted Date Comments Adhesive Tape 07/02/2017 Can tolerate band-aids Glycerin Other (Please comment) 03/12/2008 Topical agents with glycein-burning & itching Lactose 12/09/2014 Dairy - gas Lisinopril Cough 01/21/2010 Monosodium Glutamate Edema Other 03/12/2008 Hands and feet Penicillins Rash 11/14/2007 documented as of this encounter (statuses as of 06/19/2024) Medications Medication Sig Dispensed Refills Start Date [...] :DM type 2, not at goal (FORMERLY [place] [...] Capsules by mouth in the morning. Active Roving PlanetTouch Verio In Vitro Strip (Glucose Blood) Use [...] pump 1 Kit 5 04/10/2024 Active Nystatin 138636 UNIT/GM External Powder (Nystop)Indications: Candidal intertrigo APPLY [...] a week. 9 mL 1 06/16/2024 Active Gbfqyovxjm-Mysfutj-A affeine 50-325-40 MG Oral Capsule (Fiorinal)Indication s:Acute intractable tension-type headache Take 1 Capsule by mouth every 4 hours as needed for Headache. 30 Capsule 06/16/2024 Active Fluticasone Propionate 50 MCG/ACT Nasal Suspension (Flonase)Indications :Dizziness Administer 2 Sprays into each nostril in the morning. 16 g 3 06/17/2024 Active documented as of this encounter (statuses as of 06/19/2024) Active Problems Problem Noted Date Diagnosed Date [...] as of this encounter (statuses as of 06/19/2024) Resolved Problems Problem Noted Date Diagnosed Date [...] 12/21/2016 Diabetes mellitus 01/05/2014 12/21/2016 LEYVA RESEARCH OTHER*[id number] 01/05/2014 12/21/2016 Axillary pain 11/03/2013 12/21/2016 Obesity, [...] Medical Record [facility] V710 Clinical Trial*[id number] 12/22/2010 04/14/2011 S/P aortic valve replacement 12/01/2010 08/26/2011 S/P AORTIC VALVE REPLACEMENT - #25 pericardial Mc valve 11/01/2010 06/28/2018 Overview: Aortic valve replacement with #25 pericardial Mc valve, model 2800TFX, serial number [id number] (Dr. Walker) [facility] V710 Clinical Trial*[id number] 10/18/2010 11/21/2010 Type 2 diabetes mellitus wit h hemoglobin A1c goal of less than 7.0% 09/02/2010 02/04/2024 Overview: ICD-10 update of inactive term Last Assessment & Plan: Pt having lows almost every night. Followed by endocrinology. Appears she no showed MTM and last endocrine appt. TT to Dr. Gacria for recommendation evening insulin. Dose humulin reduced. [...] as of this encounter (statuses as of 06/19/2024) Immunizations Name Administration Dates Next Due COVID-19 mRNA, LNP-s, No Pre serve, 2-Dose Series (Moderna) 10/25/2021,02/16/2021,01/18/2021 HEP A - Hepatitis A (Adult > 18 yrs) 06/07/2018, 12/05/2017 Hepatitis B, 20+ yrs 06/07/2018,01/08/20 18,12/05/2017,06/15,10/27/2013,09/12/2013 Pneumococcal Conjugate Vacci ne, 20-valent ([id number]) 06/22/2023 Pneumococcal Polysaccharide PPV23 (Pneumovax) 01/02/2008 Seasonal [...] as of this encounter Progress Notes * Fidelina Baumann MD - 06/19/2024 4:14 PM EDT Neph nurse pls call pt/ caregiver to discuss; last cc365 entry was 05/30 Recommend if unable to do daily for cc365 MTM that she continue w/ MTM w/ periodic 3 day logs; sametarget as cc365 CC365 FYI * [facility] Senior Investment Analyst - 06/19/2024 11:48 AM EDT Spoke to patients aide (Jennifer) who expressed concerns about patients inability to provide consistent readings and participate in the program. Paul [facility] Community [facility] Specialist documented in this encounter Plan of Treatment Upcoming Encounters Date Type Department Care Team (Late st Contact Info) Description 06/20/2024 9:30 AM EDT Scheduled Telephone [facility], [facility] [address] [address] Coordinator, [facility] [address] [address] 06/23/2024 9:00 AM EDT Office Visit Family [facility] [address] [place] [address] Massimo Frias MD 132 [facility] [place] [address] 06/26/2024 9:00 AM EDT Office Visit Nephrology, [facility] [address] [place] [address] Fidelina Baumann MD [address] [place] [address] 06/30/2024 10:00 AM EDT Office Visit Gastroenterology, [facility] [address] [facility] [place] [address] Arina Knapp PA-C [address] [place] [address] 07/08/2024 6:10 PM EDT Pharmacy Pharmacy, [facility] [address] [facility] [place] [address] Pharmacist1, [facility] [address] [facility] [place] [address] 07/31/2024 11:15 AM EST Office Visit Ophthalmology, [facility] [address] [facility] [place] [address] Ramsey Burnett, DO [address] [facility] [place] [address] 08/12/2024 9:20 AM EST Office Visit Family Practice [facility] [address] [facility] [place] [address] Gregory Ruasch MD 132 [facility] [place] [address] 11/03/2024 11:00 AM EST Office Visit Sleep Disorders Ctr [facility] 132 [facility] [place] [phone] Christina Birch, [address] [place] [address] 11/04/2024 9:30 AM EST Office Visit Gastroenterology, [facility] [address] [place] [address] Tia Taylor CRNP [address] [place] [address] Scheduled Procedures Name Priority Associated Diagnoses Date/Ti [...] Additional history exists CKD PHOS USE SMARTSET 84867 06/18/202405/26, 06/16/2023, 06/15/2023, Additional history exists HbA1c 08/01/2024 01/30/2024, 08/25, 07/31/2023, Additional history exists Diabetic Eye Exam 09/13/2024 09/13/2023, , 09/13/2023, Additional history exists B-12 09/18/2024 09/18/2023, 08/24, 2020, Additional history exists GFR 11/01/2024 05/01/2024, 12/23, 10/15/2023, Additional history exists Albumin/Creatinine Ratio 01/07/2025 024, 03/09/2023, 12/22/2022, Additional history exists CKD HGB USE SMARTSET 64830 01/07/202501/07, 01/08/2024, 10/15/2023, Additional history exists TSH [...] this encounter Medical Devices Implanted Type Area [place] Roofer Helper Device Identifier Shelf Expiration Date Model / Serial / Lot Cath Roselia Single Lumen - [id number] Implanted:Qty : 1 on 03/12/2008 at OR [facility] Left: Chest [facility] *DO NOT USE* 07/25/2012 21-4053-24 / / [id number] Sut Steel 6 M654g - [id number] Implanted:Qty : 1 on 11/01/2010 at OR [facility] N/A: Chest DO NOT USE M654G / / Sut Steel 6 M654g - [id number] Implanted:Qty : 1 on 11/01/2010 at OR [facility] N/A: Chest DO NOT USE M654G / / Valve Tarsha Aortic [id number] - [id number] Implanted:Qty : 1 on 11/01/2010 at OR [facility] N/A: Heart [employer] DANIEL 05/20/2012 2800TFX-25 / / [id number] Description:[email or web address] Mesh Soft 90s86ln - [id number] Implanted:Qty : 1 on 10/10/2019 by Gigi Hendrickson [place] [facility] N/A: Abdomen CR BARD : DAVOL [id number] 05/21/2024 [id number] / / [id number] Lens 22.5 Sn60wf - [id number] - [id number] Implanted:Qty : 1 on 09/15/2020 by Cece Roland MD at OR [facility] Right: Eye IVA : SURGICAL [id number] 05/13/2025 SN60 WF.225 / [id number] / [id number] Lens 21.5 Sn60wf - [id number] - [id number] Implanted:Qty : 1 on 12/19/2023 by Ramsey Burnett DO at OR [facility] Left: Eye IVA : SURGICAL 12/03/2024 SN60WF.2 15 / [id number] / documented as of this encounter [...] statute hierarchy) Jovita Ovalle Adult Child Health Making Line Worker resentative (appointed verbally by patient or by statute hierarchy) [email or web address] Care Teams Circle Saw Operator Relationship Specialty Start Date End Date Gregory Rausch MD [address] [place] [address] PCP - General Family Medicine 02/12/20 documented as of this encounter
--- OUTSIDE RECORDS SUMMARY | 2024-10-02 03:30 | External Medical Summary | Summary of Care ---
Author Name Unknown Organization [facility] Address [address] [place] [address] Phone [phone] Care Team Providers Care Continuous Pickling Line Pickler Name Role Phone Gregory Rausch MD Primary Care Provider [phone] Reason for Visit * Reason Onset Date Comments [facility]: Maintenance 06/19/2024 Encounter Details Date Type Department Care Team (Late st Contact Info) Description 06/19/2024 11:00 AM EDT Scheduled Telephone [facility], [facility] [address] [place] [address] Coordinator, [facility] 132 [place] [address] Allergies Active Allergy Reactions Criticality Noted Date [...] pump 1 Kit 5 04/10/2024 Active Nystatin 069893 UNIT/GM External Powder (Nystop)Indications: Candidal intertrigo APPLY [...] a week. 9 mL 1 06/16/2024 Active Aypfrnhvfg-Scdugfb-H affeine 50-325-40 MG Oral Capsule (Fiorinal)Indication s:Acute [...] 12/21/2016 Diabetes mellitus 01/05/2014 12/21/2016 LEYVA RESEARCH OTHER*[id number] 01/05/2014 12/21/2016 Axillary pain 11/03/2013 12/21/2016 Obesity, [...] 09/201008/26/2011 12/21/2016 FOLLOWING SURGERY, UNSPECIFI ED ([facility] 08/25/2011) 08/26/2011 12/21/2016 ADVANCE DIRECTIVE [...] Medical Record [facility] V710 Clinical Trial*[id number] 12/22/2010 04/14/2011 S/P aortic valve replacement 12/01/2010 08/26/2011 S/P AORTIC VALVE REPLACEMENT - #25 pericardial Mc valve 11/01/2010 06/28/2018 Overview: Aortic valve replacement with #25 pericardial Mc valve, model 2800TFX, serial number [id number] (Dr. Walker) [facility] V710 Clinical Trial*[id number] 10/18/2010 11/21/2010 Type 2 diabetes mellitus wit [...] 06/07/2018,01/08/20 18,12/05/2017,06/15,10/27/2013,09/12/2013 Pneumococcal Conjugate Vacci ne, 20-valent (Rorkwds13) 06/22/2023 Pneumococcal Polysaccharide PPV23 (Pneumovax) 01/02/2008 Seasonal [...] No 04/08/2024 Does the household have a [facility] source of income? (Household - for [...] Telephone Encounter - Angelica Welch RN - 06/19/2024 11:33 AM EDT [facility] Telephonic Nurse Follow-Up Call [facility] Subprogram: Focused Care Management (3-9 months) Follow Up Call Type: Routine follow up call / Status Check Acute issue requiring follow-up call: Other: follow up on diarrhea , abdominal cramping s/p finishing course of Difficid 10 day course Objective: 06/11/2024 2:03 PM 06/05/2024 9:14 AM 05/08/2024 10:40 AM 05/01/2024 11:25 AM 05/01/2024 10:13 AM VITALS ACROSS ENCOUNTERS BP 112/68 124/60 118/74 124/66 120/60 Pulse 84 95 84 85 Weight 67.8 kg 68.9 kg BMI 30.18 kg/m2 30.7 kg/m2 Remote Patient Monitoring: NONE Oxygen Needs: NO supplemental oxygen needs identified DME Needs: NO DME needs identified Medications: New medication(s) added: Dificid Subjective: Condition Status: Improvement in symptoms but not at baseline Current Concerns: Pt hospitalized at [facility] from 06/05/24-06/10/24 for diarrhea and worsening abdominal pain x 10 days C diff negative Pt discharged to home on 06/10/24 with prescription for Dificid 10 day course Patient on for follow up call today to see how her symptoms are following course. Patient reports that the diarrhea is resolved, but that her sugars have been running much higher recently. Caregiver and home health RN also present and concerned about elevated sugars. Currently her Dexcomreader was misplaced so they are doing finger stick checks. Reviewed symptoms of hyperglycemia. Patient denies dizziness, headaches, but does not increased fatigue and increased in urination with increased incontinence. Most recent fasting readings via fingerstick: Today 575 took her novolog per sliding scale (14 units of novolog) 06/18 462 06/17 453 06/16 346 06/14 380 Reviewed diet. Patient eats mom's meals, but also high sugar foods such as cinnamon toast crunch cereal, sweetened tea. Discussed importance of decreasing dietary intake of added sugar to better control her blood glucose. Agreeable to RD referral. Caregiver present and is with patient Mon- 615-215pm and is willing to help with meal planning, shopping. Pt asking for caregiverStephanie to be the contact for the RD referral and also be added to the chart for general merchandise salesperson. Reviewed diabetic medications. Pt denies missing any doses. Ozempic 2mg per week Tresiba 36 units daily Novolog CF 2/50 over 200 (Flextouch pen) - give before every meal) Disposition: Follow up call scheduled for tomorrow with SLAB CONDITIONER SUPERVISOR Core Maker Helper Future Visits Scheduled: Future Appointments-next 60 days Date/Time Provider Specialty Dept Phone 06/23/2024 9:00 AM (Arrive by 8:45 AM) Massimo Frias MD Family Medicine [phone] 06/30/2024 10:00 AM (Arrive by 9:45 AM) Arina Knapp PA-C Gastroenterology [phone] 07/08/2024 6:10 PM Pharmacist1, [facility] [phone] 07/31/2024 11:15 AM Ramsey Burnett DO Ophthalmology [phone] 08/12/2024 9:20 AM (Arrive by 9:05 AM) Gregory Rausch MD Family Medicine [phone] 11/03/2024 11:00 AM (Arrive by 10:45 AM) Christina Birch DO Sleep Disorders [phone] 11/04/2024 9:30 AM (Arrive by 9:15 AM) Tia Taylor CRNP Gastroenterology [phone] 11/27/2024 9:40 AM (Arrive by 9:25 AM) Fidelina Baumann MD Nephrology [phone] Angelica Welch, RN documented in this encounter Plan of Treatment Upcoming Encounters Date Type Department Care Team (Late st Contact Info) Description 06/20/2024 9:30 AM EDT Scheduled Telephone [facility], [facility] [address] [facility] [place] [address] Coordinator, [facility] [address] [facility] [place] [address] 06/23/2024 9:00 AM EDT Office Visit Family Practice [facility] [address] [facility] [place] [address] Massimo Frias MD 132 [facility] [place] [address] 06/26/2024 9:00 AM EDT Office Visit Nephrology, [facility] [address] [place] [address] Fidelina Baumann MD 200 [facility] [place] [address] 06/30/2024 10:00 AM EDT Office Visit Gastroenterology, [facility] [address] [facility] [place] [address] Arina Knapp PA-C [facility] [address] [place] [address] 07/08/2024 6:10 PM EDT Pharmacy Pharmacy, [facility] [address] [facility] [place] [address] Pharmacist1, [facility] [address] [facility] [place] [address] 07/31/2024 11:15 AM EST Office Visit Ophthalmology, [facility] [address] [facility] [place] [address] Ramsey Burnett, DO [facility] [place] [address] 08/12/2024 9:20 AM EST Office Visit Family Practice [facility] [address] [facility] [place] [address] Gregory Rausch MD 132 [facility] [place] [address] 11/03/2024 11:00 AM EST Office Visit Sleep Disorders Ctr [facility] [address] [facility] [place] [phone] Christina Birch, [address] [facility] [place] [address] 11/04/2024 9:30 AM EST Office Visit Gastroenterology, [facility] [address] [facility] [place] [address] Tia Taylor CRNP [address] [facility] [place] [address] Scheduled Procedures Name Priority Associated Diagnoses Date/Ti [...] Additional history exists CKD PHOS USE SMARTSET 12722 06/18/202405/26, 06/16/2023, 06/15/2023, Additional history exists HbA1c 08/01/2024 01/30/2024, 08/25, 07/31/2023, Additional history exists Diabetic Eye Exam 09/13/2024 09/13/2023, , 09/13/2023, Additional history exists B-12 09/18/2024 09/18/2023, 08/24, 2020, Additional history exists GFR 11/01/2024 05/01/2024, 12/23, 10/15/2023, Additional history exists Albumin/Creatinine Ratio 01/07/2025 024, 03/09/2023, 12/22/2022, Additional history exists CKD HGB USE SMARTSET 95585 01/07/202501/07, 01/08/2024, 10/15/2023, Additional history exists TSH [...] this encounter Medical Devices Implanted Type Area Bankruptcy Assistant Device Identifier Shelf Expiration Date Model / Serial / Lot Cath Roselia Single Lumen - [id number] Implanted:Qty : 1 on 03/12/2008 at OR [facility] Left: Chest [facility] *DO NOT USE* 07/25/2012 21-4053-24 / / [id number] Sut Steel 6 M654g - [id number] Implanted:Qty : 1 on 11/01/2010 at OR [facility] N/A: Chest DO NOT USE M654G / / Sut Steel 6 M654g - [id number] Implanted:Qty : 1 on 11/01/2010 at OR [facility] N/A: Chest DO NOT USE M654G / / Valve Tarsha Aortic [id number] - [id number] Implanted:Qty : 1 on 11/01/2010 at OR [facility] N/A: Heart [employer] D[employer]EL 05/20/2012 2800TFX-25 / / [id number] Description:[email or web address] Mesh Soft 42w00cz - [id number] Implanted:Qty : 1 on 10/10/2019 by Gigi Hendrickson MD at OR [facility] N/A: Abdomen CR BARD : DAVOL [id number] 05/21/2024 [id number] / / [id number] Lens 22.5 Sn60wf - [id number] - [id number] Implanted:Qty : 1 on 09/15/2020 by Cece Roland MD at OR [facility] Right: Eye IVA : SURGICAL [id number] 05/13/2025 SN60 WF.225 / [id number] / [id number] Lens 21.5 Sn60wf - [id number] - [id number] Implanted:Qty : 1 on 12/19/2023 by Ramsey Burnett DO at OR [facility] Left: Eye IVA : SURGICAL 12/03/2024 SN60WF.2 15 / [id number] / documented as of this encounter [...] statute hierarchy) Jovita Ovalle Adult Child Health Car Framer resentative (appointed verbally by patient or by statute hierarchy) [email or web address] Care Teams Continuous Pickling Line Pickler Relationship Specialty Start Date End Date Gregory Rausch MD [address] [place] [address] PCP - General Family Medicine 02/12/20 documented as of this encounter
--- OUTSIDE RECORDS SUMMARY | 2024-10-02 03:30 | External Medical Summary | Summary of Care ---
Author Name Unknown Organization [facility] Address [address] [place] [address] Phone [phone] Care Team Providers Care Operating Room Specialist Name Role Phone Gregory Rausch MD Primary Care Provider +1 [phone] Reason for Visit * Reason Comments eRx-Medication Refill Encounter Details Date Type Department Care Team (Late st Contact Info) Description 06/20/2024 Refill Care Coordination [address] [place] [address] Fidelina Baumann MD [address] [place] [address] HTN, goal below 130/80 Allergies Active Allergy Reactions Criticality Noted Date Comments Adhesive Tape 07/02/2017 Can tolerate band-aids Glycerin Other (Please comment) 03/12/2008 Topical agents with glycein-burning & itching Lactose 12/09/2014 Dairy - gas Lisinopril Cough 01/21/2010 Monosodium Glutamate Edema Other 03/12/2008 Hands and feet Penicillins Rash 11/14/2007 documented as of this encounter (statuses as of 06/22/2024) Medications Medication Sig Dispensed Refills Start Date [...] Capsules by mouth in the morning. Active LanyrdTouch Verio In Vitro Strip (Glucose Blood) Use [...] pump 1 Kit 5 4 Active Nystatin 707384 UNIT/GM External Powder (Nystop)Indications :Candidal intertrigo APPLY [...] current use of insulin ([facility]) Inject 36 Units under the skin in the morning. 18 mL 3 4 Active Metoprolol Tartrate 50 MG Oral Tablet (Lopressor)Indicati ons:HTN, goal below 130/80 TAKE 1 TABLET BY MOUTH IN THE MORNING AND BEFORE BEDTIME 180 Tablet 3 4 Active Metoprolol Tartrate 50 MG Oral Tablet (Lopressor)Indicati ons:HTN, goal below 130/80 Take 1 Tablet by mouth in the morning and 1 Tablet before bedtime. 180 Tablet 3 4 06/22/20 24 Discontinu ed(Refill) documented as of this encounter (statuses as of 06/22/2024) Active Problems Problem Noted Date Diagnosed Date [...] 09/28/2020 Coronary artery disease invo lving [place] coronary artery of [place] heart without angina pectoris 12/16/2019 Last [...] as of this encounter (statuses as of 06/22/2024) Resolved Problems Problem Noted Date Diagnosed Date [...] 12/21/2016 Diabetes mellitus 01/05/2014 12/21/2016 LEYVA RESEARCH OTHER*[id number] 01/05/2014 12/21/2016 Axillary pain 11/03/2013 12/21/2016 Obesity, [...] Medical Record [facility] V710 Clinical Trial*[id number] 12/22/2010 04/14/2011 S/P aortic valve replacement 12/01/2010 08/26/2011 S/P AORTIC VALVE REPLACEMENT - #25 pericardial Hernandez valve 11/01/2010 06/28/2018 Overview: Aortic valve replacement with #25 pericardial Hernandez valve, model 2800TFX, serial number [id number] (Dr. Walker) [employer] V710 Clinical Trial*[id number] 10/18/2010 11/21/2010 Type 2 diabetes mellitus wit [...] as of this encounter (statuses as of 06/22/2024) Immunizations Name Administration Dates Next Due COVID-19 mRNA, LNP-s, No Pre serve, 2-Dose Series (Moderna) 10/25/2021,02/16/2021,01/18/2021 HEP A - Hepatitis A (Adult > 18 yrs) 06/07/2018, 12/05/2017 Hepatitis B, 20+ yrs 06/07/2018,01/08/20 18,12/05/2017,06/15,10/27/2013,09/12/2013 Pneumococcal Conjugate Vacci ne, 20-valent ([id number]) 06/22/2023 Pneumococcal Polysaccharide PPV23 (Pneumovax) 01/02/2008 Seasonal [...] encounter Miscellaneous Notes * Telephone Encounter - Kia Stephen MD - 06/22/2024 5:03 PM EDTSigned Prescriptions: Disp Refills Metoprolol Tartrate 50 MG Oral Tablet (Lop*180 Ta*3 Sig: TAKE 1 TABLET BY MOUTH IN THE MORNING AND BEFORE BEDTIMEAuthorizing Provider: KIA STEPHEN documented in this encounter Plan of Treatment Upcoming Encounters Date Type Department Care Team (Late st Contact Info) Description 06/23/2024 9:00 AM EDT Office Visit Family Practice [facility] [address] [address] Massimo Frias MD [address] [place] [address] 06/26/2024 9:00 AM EDT Office Visit Nephrology, [facility] [address] [facility] [place] [address] Fidelina Baumann MD [address] [facility] [place] [address] 06/30/2024 10:00 AM EDT Office Visit [facility]astroenterology, [facility] [place] [address] Arina Knapp PA-C [address] [facility] [place] [address] 07/08/2024 6:10 PM EDT Pharmacy Pharmacy, [facility] [address] [facility] [place] [address] Pharmacist1, [facility] 200 [facility] [place] [address] 07/31/2024 11:15 AM EST Office Visit Ophthalmology, [facility] [address] Ramsey Burnett, DO [address] [place] [address] 08/12/2024 9:20 AM EST Office Visit Family Practice [facility] [address] [facility] [address] Gregory Rausch MD 132 [facility] [place] [address] 11/03/2024 11:00 AM EST [facility] 132 [facility] [place] [id number] Christina Birch, DO 132 [facility] [place] [address] 11/04/2024 9:30 AM EST Office Visit Gastroenterology, [facility] [address] [place] [address] Tia Taylor CRNP [address] [place] [address] Scheduled Procedures Name Priority Associated Diagnoses Date/Ti [...] Additional history exists CKD PHOS USE SMARTSET 87071 06/18/202405/26, 06/16/2023, 06/15/2023, Additional history exists HbA1c 08/01/2024 01/30/2024, 08/25, 07/31/2023, Additional history exists Diabetic Eye Exam 09/13/2024 09/13/2023, , 09/13/2023, Additional history exists B-12 09/18/2024 09/18/2023, 08/24, 2020, Additional history exists GFR 11/01/2024 05/01/2024, 12/23, 10/15/2023, Additional history exists Albumin/Creatinine Ratio 01/07/20252 024, 03/09/2023, 12/22/2022, Additional history exists CKD HGB USE SMARTSET 23067 01/07/202501/07, 01/08/2024, 10/15/2023, Additional history exists TSH [...] this encounter Medical Devices Implanted Type Area 7Th Grade Teacher Device Identifier Shelf Expiration Date Model / Serial / Lot Cath Roselai Single Lumen - [id number] Implanted:Qty : 1 on 03/12/2008 at OR [facility] Left: Chest [facility] *DO NOT USE* 07/25/2012 21-4053-24 / / [id number] Sut Steel 6 M654g - [id number] Implanted:Qty : 1 on 11/01/2010 at OR [facility] N/A: Chest DO NOT USE M654G / / Sut Steel 6 M654g - [id number] Implanted:Qty : 1 on 11/01/2010 at OR [facility] N/A: Chest DO NOT USE M654G / / Valve Tarsha Aortic [id number] - [id number] Implanted:Qty : 1 on 11/01/2010 at OR [facility] N/A: Heart TranSiCCIIntralign DANIEL 05/20/2012 2800TFX-25 / / [id number] Description:[email or web address] Mesh Soft 50t61rk - [id number] Implanted:Qty : 1 on 10/10/2019 by Gigi Hendrickson [place] [facility] [place]/A: Abdomen CR BARD : DAVOL [id number] 05/21/2024 [id number] / / [id number] Lens 22.5 Sn60wf - [id number] - [id number] Implanted:Qty : 1 on 09/15/2020 by Renaldo Cook, Cece Acosta MD at OR [facility] Right: Eye IVA : SURGICAL [id number] 05/13/2025 SN60 WF.225 / [id number] / [id number] Lens 21.5 Sn60wf - [id number] - [id number] Implanted:Qty : 1 on 12/19/2023 by Ramsey Burnett DO at OR [facility] Left: Eye IVA : SURGICAL 12/03/2024 SN60WF.2 15 / [id number] / documented as of this encounter [...] statute hierarchy) Jovita Yamile Adult Child Health Herb Digger resentative (appointed verbally by patient or by statute hierarchy) [email or web address] Care Teams Operating Room Specialist Relationship Specialty Start Date End Date Gregory Rausch MD [address] [place] [address] PCP - General Family Medicine 02/12/20 documented as of this encounter
--- OUTSIDE RECORDS SUMMARY | 2024-10-02 03:30 | External Medical Summary | Summary of Care ---
Author Name Unknown Organization [facility] Address [address] [place] [address] Phone [phone] Care Team Providers Care Fruit Worker Name Role Phone Deon Rausch MD Primary Care Provider [phone] [phone] Reason for Visit * Reason Onset Date Comments Medication Refill 06/20/2024 Encounter Details Date Type Department Care Team (Late st Contact Info) Description 06/20/2024 Refill Family Practice [facility] [address] [facility] [address] Deon Rausch MD 132 [facility] [place] [address] Type 2 diabetes mellitus with hemoglobin A1c goal of less than 7.0% ([facility]); Type 2 diabetes mellitus with stage 3a chronic kidney disease, with long-term current use of insulin ([facility]) Allergies Active Allergy Reactions Criticality [...] (Glucose)Indication s:DM type 2, not at goal ([facility] [...] pump 1 Kit 5 4 Active Nystatin 806620 UNIT/GM External Powder (Nystop)Indications :Candidal intertrigo APPLY [...] use of insulin ([facility]) Inject 36 Units under the skin in the morning. 6 mL 2 4 Active Tresiba FlexTouch 200 UNIT/ML Subcutaneous Solution Pen-injector (Insulin Degludec)Indication s:Type 2 diabetes mellitus with hemoglobin A1c goal of less than 7.0% ([facility]),Type 2 diabetes mellitus with stage 3a chronic kidney disease, with long-term current use of insulin ([facility]) Inject 36 Units under the skin in the morning. 6 mL 2 4 06/20/20 24 Discontinu ed(Refill) documented as of this [...] eye 09/28/2020 Coronary artery disease invo lving [place] coronary artery of [place] heart without angina pectoris 12/16/2019 Last Assessment [...] 12/21/2016 Diabetes mellitus 01/05/2014 12/21/2016 LEYVA RESEARCH OTHER*[id number] 01/05/2014 12/21/2016 Axillary pain 11/03/2013 12/21/2016 Obesity, [...] to be scanned into Electronic Medical Record [facility] V710 Clinical Trial*[id number] 12/22/2010 04/14/2011 S/P aortic valve replacement 12/01/2010 08/26/2011 S/P AORTIC VALVE REPLACEMENT - #25 pericardial Mc valve 11/01/2010 06/28/2018 Overview: Aortic valve replacement with #25 pericardial Mc valve, model 2800TFX, serial number [id number] (Dr. Walker) [facility] V710 Clinical Trial*[id number] 10/18/2010 11/21/2010 Type 2 diabetes mellitus wit [...] 06/07/2018,01/08/20 18,12/05/2017,06/15,10/27/2013,09/12/2013 Pneumococcal Conjugate Vacci ne, 20-valent ([id number]) 06/22/2023 Pneumococcal Polysaccharide PPV23 (Pneumovax) 01/02/2008 Seasonal [...] Telephone Encounter - Deon Rausch MD - 06/20/2024 12:29 PM EDTSigned Prescriptions: Disp Refills Tresiba FlexTouch 200 UNIT/ML Subcutaneous*6 mL 2 Sig: Inject 36 Units under the skin in the morning. Authorizing Provider: DEON RAUSCH * Telephone Encounter - Briseida Kang LPN - 06/20/2024 12:28 PM EDTPending Prescriptions: Disp Refills Tresiba FlexTouch 200 UNIT/ML Subcutaneous*6 mL 2 Sig: Inject 36 Units under the skin in the morning. * Telephone Encounter - Steve Valera, nylon hot wire cutter - 06/20/2024 12:05 PM EDT Nurse wants RX to go directly to PCP for pt. They want office to call pt back when they send scriptfor fill. Did you pend patient's preferred pharmacy and medication before forwarding?yes Pharmacy: [id number] Pending Prescriptions: Disp Refills Tresiba FlexTouch 200 UNIT/ML Subcutaneou*6 mL 2 Sig: Inject 36 Units under the skin in the morning. Last Visit: 06/05/2024 (in office), 09/12/2023 (telemedicine) Next Visit: 06/23/2024 If no future appointments scheduled, and last appointment is greater than a year ago, please schedule patient for a follow-up appointment Last date the medication was ordered: 03/14/2024 Is this request for a controlled substance?No [...] 9:00 AM EDT Office Visit Family Practice [facility] 132 [facility] [place] [address] Massimo Frias MD [address] [place] [address] 06/26/2024 9:00 AM EDT Office Visit Nephrology, [facility] [address] [address] Fidelina Baumann MD [address] [address] 06/30/2024 10:00 AM EDT Office Visit Gastroenterology, [facility] 132 [facility] [place] [address] Arina Knapp PA-C [address] [place] [address] 07/08/2024 6:10 PM EDT Pharmacy Pharmacy, [facility] [address] [place] [address] Pharmacist1, [facility] [address] [facility] [place] [address] 07/31/2024 11:15 AM EST Office Visit Ophthalmology, [facility] 132 [facility] [place] [address] Ramsey Burnett, DO [facility] [place] [address] 08/12/2024 9:20 AM EST Office Visit Family Practice [facility] [address] [facility] [place] [address] Deon Rausch MD 132 [facility] [place] [address] 11/03/2024 11:00 AM EST Office Visit Sleep Disorders [facility]tr [facility] [address] [facility] [place] [phone] Christina Birch DO 132 [facility] [place] [address] 11/04/2024 9:30 AM EST Office Visit Gastroenterology, [facility] [address] [facility] [place] [address] Tia Taylor CRNP 132 [facility] [place] [address] Scheduled Procedures Name Priority Associated Diagnoses Date/Ti [...] Additional history exists CKD PHOS USE SMARTSET 21972 06/18/2024 0901/2023, 06/16/2023, 06/15/2023, Additional history exists HbA1c 08/01/2024 01/30/2024, 08/25, 07/31/2023, Additional history exists Diabetic Eye Exam 09/13/2024 09/13/2023, , 09/13/2023, Additional history exists B-12 09/18/2024 09/18/2023, 08/24, 2020, Additional history exists GFR 11/01/2024 05/01/2024, 12/23, 10/15/2023, Additional history exists Albumin/Creatinine Ratio 01/07/2025 024, 03/09/2023, 12/22/2022, Additional history exists CKD HGB USE SMARTSET 20643 01/07/202501/07, 01/08/2024, 10/15/2023, Additional history exists TSH [...] encounter Medical Devices Implanted Type Area Business Administration Program Chair Device Identifier Shelf Expiration Date Model / Serial / Lot Cath Roselia Single Lumen - [id number] Implanted:Qty : 1 on 03/12/2008 at OR [facility] Left: Chest [facility] *DO NOT USE* 07/25/2012 21-4053-24 / / [id number] Sut Steel 6 M654g - [id number] Implanted:Qty : 1 on 11/01/2010 at OR [facility] N/A: Chest DO NOT USE M654G / / Sut Steel 6 M654g - [id number] Implanted:Qty : 1 on 11/01/2010 at OR [facility] N/A: Chest DO NOT USE M654G / / Valve Tarsha Aortic [id number] - [id number] Implanted:Qty : 1 on 11/01/2010 at OR [facility] N/A: Heart [employer] DANIEL 05/20/2012 2800TFX-25 / / [id number] Description:[email or web address] Mesh Soft 85p36co - [id number] Implanted:Qty : 1 on 10/10/2019 by Gigi Hendrickson MD at [place] [facility] N/A: Abdomen CR BARD : DAVOL [id number] 05/21/2024 [id number] / / [id number] Lens 22.5 Sn60wf - [id number] - [id number] Implanted:Qty : 1 on 09/15/2020 by Cece Roland MD at OR [facility] Right: Eye IVA : SURGICAL [id number] 05/13/2025 SN60 WF.225 / [id number] 6 / [id number] Lens 21.5 Sn60wf - [id number] - [id number] Implanted:Qty : 1 on 12/19/2023 by Ramsey Burnett DO at OR [facility] Left: Eye IVA : SURGICAL 12/03/2024 SN60WF.2 15 / [id number] / documented as of this encounter [...] statute hierarchy) Jovita Ovalle Adult Child Health Ambulance Driver Paramedic resentative (appointed verbally by patient or by statute hierarchy) [email or web address] Care Teams Fruit Worker Relationship Specialty Start Date End Date Deon Rausch MD [address] [place] [address] PCP - General Family Medicine 02/12/20 documented as of this encounter
--- OUTSIDE RECORDS SUMMARY | 2024-10-02 03:31 | External Medical Summary | Summary of Care ---
Author Name Unknown Organization [facility] Address [address] [place] [address] Phone [phone] Care Team Providers Care Pharmacy Tech Name Role Phone Gregory Rausch MD Primary Care Provider +1 [phone] Reason for Visit * Reason Onset Date Comments Home Monitoring Orders Only 06/19/2024 Encounter Details Date Type Department Care Team (Late st Contact Info) Description 06/19/2024 Home Monitoring Care Coordination [address] [place] [address] Fidelina Baumann MD [address] [place] [address] Hypertension* Allergies Active Allergy Reactions [...] (Glucose)Indications :DM type 2, not at goal ([facility] [...] Capsules by mouth in the morning. Active Obihai TechnologyTouch Verio In Vitro Strip (Glucose Blood) Use [...] pump 1 Kit 5 04/10/2024 Active Nystatin 368854 UNIT/GM External Powder (Nystop)Indications: Candidal intertrigo APPLY [...] a week. 9 mL 1 06/16/2024 Active Nwdvxmalgh-Hykdcga-D affeine 50-325-40 MG Oral Capsule (Fiorinal)Indication s:Acute [...] 09/28/2020 Coronary artery disease invo lving [place] coronary artery of [place] heart without angina pectoris 12/16/2019 Last Assessment [...] 12/21/2016 Diabetes mellitus 01/05/2014 12/21/2016 LEYVA RESEARCH OTHER*[id number] 01/05/2014 12/21/2016 Axillary pain 11/03/2013 12/21/2016 Obesity, [...] scanned into Electronic Medical Record [facility] V710 Clinical Trial*[id number] 12/22/2010 04/14/2011 S/P aortic valve replacement 12/01/2010 08/26/2011 S/P AORTIC VALVE REPLACEMENT - #25 pericardial Mc valve 11/01/2010 06/28/2018 Overview: Aortic valve replacement with #25 pericardial Mc valve, model 2800TFX, serial number [id number] (Dr. Walker) [facility] V710 Clinical Trial*[id number] 10/18/2010 11/21/2010 Type 2 diabetes mellitus wit [...] 06/07/2018,01/08/20 18,12/05/2017,06/15,10/27/2013,09/12/2013 Pneumococcal Conjugate Vacci ne, 20-valent (Ypkzkpf61) 06/22/2023 Pneumococcal Polysaccharide PPV23 (Pneumovax) 01/02/2008 Seasonal [...] as of this encounter Progress Notes * [facility] Explosives Mixer Operator - 06/19/2024 11:48 AM EDT Spoke to patients aide (Jennifer) who expressed concerns about patients inability to provide consistent readings and participate in the program. [facility] Community Programs Specialist Electronically signed by [facility] Explosives Mixer Operator at 06/19/2024 11:50 AM EDT documented in this encounter Plan of Treatment Upcoming Encounters Date Type Department Care Team (Late st Contact Info) Description 06/23/2024 9:00 AM EDT Office Visit Family Practice [facility] 132 [facility] [place] [address] Massimo Frias MD 132 [facility] [place] [address] 06/26/2024 9:00 AM EDT Office Visit Nephrology, [facility] [address] [facility] [address] [place] [address] Fidelina Baumann MD [address] [place] [address] 06/30/2024 10:00 AM EDT Office Visit Gastroenterology, [facility] 132 [facility] [place] [address] Arina Knapp PA-C [address] [place] [address] 07/08/2024 6:10 PM EDT Pharmacy Pharmacy, [facility] 200 [facility] [place] [address] Pharmacist1, [facility] [address] [place] [address] 07/31/2024 11:15 AM EST Office Visit Ophthalmology, [facility] 132 [facility] [place] [address] Ramsey Burnett, DO [facility] [place] [address] 08/12/2024 9:20 AM EST Office Visit Family Practice [facility] [address] [facility] [place] [address] Gregory [facility]ausch MD [address] [facility] [place] [address] 11/03/2024 11:00 AM EST Office Visit Sleep Disorders [facility]tr [facility] 132 [facility] [place] [phone] Christina Birch, 132 [facility] [place] [address] 11/04/2024 9:30 AM EST Office Visit Gastroenterology, [facility] 132 [facility] [place] [address] Tia Taylor CRNP 132 [facility] [place] [address] Scheduled Procedures Name Priority Associated Diagnoses Date/Ti [...] Additional history exists CKD PHOS USE SMARTSET 83318 06/18/202405/26, 06/16/2023, 06/15/2023, Additional history exists HbA1c 08/01/2024 01/30/2024, 08/25, 07/31/2023, Additional history exists Diabetic Eye Exam 09/13/2024 09/13/2023, , 09/13/2023, Additional history exists B-12 09/18/2024 09/18/2023, 08/24, 2020, Additional history exists GFR 11/01/2024 05/01/2024, 12/23, 10/15/2023, Additional history exists Albumin/Creatinine Ratio 01/07/2025 024, 03/09/2023, 12/22/2022, Additional history exists CKD HGB USE SMARTSET 25810 01/07/202501/07, 01/08/2024, 10/15/2023, Additional history exists TSH [...] this encounter Medical Devices Implanted Type Area Belt Loop Cutter Device Identifier Shelf Expiration Date Model / Serial / Lot Cath Roselia Single Lumen - [id number] Implanted:Qty : 1 on 03/12/2008 at OR [facility] Left: Chest [facility] *DO NOT USE* 07/25/2012 21-4053-24 / / [id number] Sut Steel 6 M654g - [id number] Implanted:Qty : 1 on 11/01/2010 at OR [facility] N/A: Chest DO NOT USE M654G / / Sut Steel 6 M654g - [id number] Implanted:Qty : 1 on 11/01/2010 at OR [facility] N/A: Chest DO NOT USE M654G / / Valve Tarsha Aortic [id number] - [id number] Implanted:Qty : 1 on 11/01/2010 at OR [facility] N/A: Heart [employer] DANIEL 05/20/2012 2800TFX-25 / / [id number] Description:[email or web address] Mesh Soft 05o78zz - [id number] Implanted:Qty : 1 on 10/10/2019 by Gigi Hendrickson MD at OR [facility] N/A: Abdomen CR BARD : DAVOL [id number] 05/21/2024 [id number] / / [id number] Lens 22.5 Sn60wf - [id number] - [id number] Implanted:Qty : 1 on 09/15/2020 by Renaldo Cook, Cece Acosta MD at OR [facility] Right: Eye IVA : SURGICAL [id number] 05/13/2025 SN60 WF.225 / [id number] 6 / [id number] Lens 21.5 Sn60wf - [id number] - [id number] Implanted:Qty : 1 on 12/19/2023 by Ramsey Burnett DO at OR [facility] Left: Eye IVA : SURGICAL 12/03/2024 SN60WF.2 15 / [id number] / documented as of this encounter [...] statute hierarchy) Jovita Ovalle Adult Child Health Column Precaster resentative (appointed verbally by patient or by statute hierarchy) [email or web address] Care Teams Pharmacy Tech Relationship Specialty Start Date End Date Gregory Rausch MD [address] [place] [address] PCP - General Family Medicine 02/12/20 documented as of this encounter
--- OUTSIDE RECORDS SUMMARY | 2024-10-02 03:31 | External Medical Summary | Summary of Care ---
Author Name Unknown Organization [facility] Address [address] [place] [address] Phone [phone] Care Team Providers Care Cut Off Worker Name Role Phone Gregory Rausch MD Primary Care Provider [phone] Reason for Visit * Reason Onset Date Comments Appointment 06/12/2024 Encounter Details Date Type Department Care Team (Late st Contact Info) Description 06/12/2024 Telephone Ophthalmology, [facility] [address] [place] [address] Services, Scheduling [address] [place] [address] Appointment Allergies Active Allergy Reactions Criticality Noted [...] s:DM type 2, not at goal (FORMERLY MCLEOD [...] pump 1 Kit 5 4 Active Nystatin 503616 UNIT/GM External Powder (Nystop)Indications :Candidal intertrigo APPLY [...] the morning. 30 Capsule 1 4 Active Clopidogrel Bisulfate 75 MG Oral Tablet (pLAVix) Take 1 Tablet by mouth in the morning. 90 Tablet 2 4 06/13/20 24 Discontinu ed(Refill) Levothyroxine Sodium 75 MCG Oral Tablet (Levoxyl)Indication s:Hypothyroidism TAKE 1 TAB BY MOUTH DAILY FIRST THING IN AM, AT LEAST 30 MIN PRIOR TO BREAKFAST OR OTHER MEDICATIONS 90 Tablet 2 4 06/13/20 24 Discontinu ed(Refill) Ozempic (2 MG/DOSE) 8 MG/3ML Subcutaneous Solution Pen-injector (Semaglutide (2 MG/DOSE))Indication s:weekly on fridays Inject 2 mg under the skin once a week. 9 mL 3 4 06/13/20 24 Discontinu ed(Refill) Atorvastatin Calcium 40 MG Oral Tablet (Lipitor)Indication s:Heart failure, systolic, due to idiopathic cardiomyopathy (HCC),S/P aortic valve replacement,HTN, goal below 140/80,Dyslipidemia , goal LDL below 70 Take 1 tablet by mouth daily to prevent heart attack/stroke, protect kidney, and cholesterol 90 Tablet 2 4 06/13/20 24 Discontinu ed(Refill) Meclizine HCl 25 MG Oral Tablet (Antivert)Indicatio ns:Muscle tension headache Take 2 Tablets by mouth 2 times a day. 360 Tablet 2 4 06/13/20 24 Discontinu ed(Refill) Gabapentin 300 MG Oral Capsule (Neurontin) Take 1 Capsule by mouth in the morning and 1 Capsule at noon and 1 Capsule before bedtime. 90 Capsule 5 4 06/14/20 24 Discontinu ed(Transfe rred) Fluticasone Propionate 50 MCG/ACT Nasal Suspension (Flonase)Indication s:Dizziness Administer 2 Sprays into each nostril in the morning. 16 g 3 4 06/17/20 24 Discontinu ed(Refill) Butalbital-Aspirin- Caffeine 50-325-40 MG Oral Capsule (Fiorinal)Indicatio ns:Acute intractable tension-type headache Take 1 Capsule by mouth every 4 hours as needed for Headache. 30 Capsule 4 06/13/20 24 Discontinu ed(Refill) documented as of this [...] 09/28/2020 Coronary artery disease invo lving [place] coronary artery of [place] heart without angina pectoris 12/16/2019 Last Assessment [...] 12/21/2016 Diabetes mellitus 01/05/2014 12/21/2016 LEYVA RESEARCH OTHER*[id number] 01/05/2014 12/21/2016 Axillary pain 11/03/2013 12/21/2016 Obesity, [...] Record [facility] V710 Clinical Trial*[id number] 12/22/2010 04/14/2011 S/P aortic valve replacement 12/01/2010 08/26/2011 S/P AORTIC VALVE REPLACEMENT - #25 pericardial Mc valve 11/01/2010 06/28/2018 Overview: Aortic valve replacement with #25 pericardial Mc valve, model 2800TFX, serial number [id number] (Dr. Walker) [facility] V710 Clinical Trial*[id number] 10/18/2010 11/21/2010 Type 2 diabetes mellitus wit [...] inactive term HTN, goal below 140/90 11/14/200710/21 /2010 Overview: Per HTN Taxonomy. DM type 2, [...] 06/07/2018,01/08/20 18,12/05/2017,06/15,10/27/2013,09/12/2013 Pneumococcal Conjugate Vacci ne, 20-valent (Lijsrpm64) 06/22/2023 Pneumococcal Polysaccharide PPV23 (Pneumovax) 01/02/2008 Seasonal [...] encounter Miscellaneous Notes * Telephone Encounter - Ilan Foster OSA - 06/19/2024 9:56 AM EDT Caller has been notified of the message. The caller was with the patient when calling in to check on the appointment. * Telephone Encounter - Citlaly Dodd TECH - 06/13/2024 12:30 PM EDT Pt scheduled for 07.31.2024 at 11:15 AM in [place] with Dr. Burnett. MyG message sent * Telephone Encounter - Pamela Salvador OSA - 06/12/2024 4:06 PM EDT Who is patient being scheduled with? Dr. Burnett What is the reason the patient needs to be seen sooner? Pt missed appointment on 03/[address] Ensor- 1 month post op undilated OCT macula OS Pt would to schedule with him before the end of the year of possible. When is the next available appointment? N/A [place] [facility]: NOTIFY PATIENT: PLEASE ALLOW US UP TO 48 HOURS FOR A RESPONSE Retinal injections should not be scheduled further out than a week or two. Any appointment related messages , [place] [id number] If appointment needed 6 weeks or less, aniket as high priority. [place] [facility]ION: NOTIFY PATIENT: DEPARTMENT WILL BE CALLING YOU SOON THEY REVIEW THE MESSAGE. PLEASE NOTE THIS COULD BE UP TO A WEEK Any appointment related messages ,[place] [id number] [place]: NOTIFY PATIENT: PLEASE ALLOW US UP TO 48 HOURS FOR A RESPONSE Appointment related concerns: Create and Send Telephone Encounter to P [id number] documented in this encounter Plan of Treatment Upcoming Encounters Date Type Department Care Team (Late st Contact Info) Description 06/19/2024 11:00 AM EDT Scheduled Telephone [facility], [facility] [address] [place] [address] Coordinator, [facility] [address] [place] [address] 06/23/2024 9:00 AM EDT Office Visit Family Practice [facility] [address] [place] [address] Massimo Frias MD [address] [place] [address] 06/30/2024 10:00 AM EDT Office Visit Gastroenterology, [facility] [address] [place] [address] Arina Knapp PA-C [address] [place] [address] 07/08/2024 6:10 PM EDT Pharmacy Pharmacy, [facility] [address] [place] [address] Pharmacist1, [facility] [address] [place] [address] 07/31/2024 11:15 AM EST Office Visit Ophthalmology, [facility] [address] [place] [address] Ramsey Burnett, DO [address] [facility] [place] [address] 08/12/2024 9:20 AM EST Office Visit Family Practice [facility] [address] [facility] [place] [address] Gregory [facility]ausch MD [address] [facility] [place] [address] 11/03/2024 11:00 AM EST Office Visit [facility] [address] [facility] [place] [phone] Christina Birch, DO [address] [facility] [place] [address] 11/04/2024 9:30 AM EST Office Visit Gastroenterology, [facility] [address] [facility] [place] [address] Tia Taylor CRNP [address] [place] [address] 11/27/2024 9:40 AM EST Office Visit Nephrology, [facility] [address] [place] [address] Fidelina Baumann MD [address] [place] [address] Scheduled Procedures Name Priority Associated Diagnoses Date/Ti [...] Additional history exists CKD PHOS USE SMARTSET 42294 06/18/202405/26, 06/16/2023, 06/15/2023, Additional history exists HbA1c 08/01/2024 01/30/2024, 08/25, 07/31/2023, Additional history exists Diabetic Eye Exam 09/13/2024 09/13/2023, , 09/13/2023, Additional history exists B-12 09/18/2024 09/18/2023, 08/24, 2020, Additional history exists GFR 11/01/2024 05/01/2024, 12/23, 10/15/2023, Additional history exists Albumin/Creatinine Ratio 01/07/2025 024, 03/09/2023, 12/22/2022, Additional history exists CKD HGB USE SMARTSET 73330 01/07/202501/07, 01/08/2024, 10/15/2023, Additional history exists TSH [...] this encounter Medical Devices Implanted Type Area Waxed Bag Machine Operator Device Identifier Shelf Expiration Date Model / Serial / Lot Cath Roselia Single Lumen - [id number] Implanted:Qty : 1 on 03/12/2008 at OR [facility] Left: Chest [facility] *DO NOT USE* 07/25/2012 21-4053-24 / / [id number] Sut Steel 6 M654g - [id number] Implanted:Qty : 1 on 11/01/2010 at OR [facility] N/A: Chest DO NOT USE M654G / / Sut Steel 6 M654g - [id number] Implanted:Qty : 1 on 11/01/2010 at OR [facility] N/A: Chest DO NOT USE M654G / / Valve Tarsha Aortic [id number] - [id number] Implanted:Qty : 1 on 11/01/2010 at OR [facility] N/A: Heart [employer] DANIEL 05/20/2012 2800TFX-25 / / [id number] Description:[email or web address] Mesh Soft 05n03ws - [id number] Implanted:Qty : 1 on 10/10/2019 by Gigi Hendrickson MD at OR [facility] N/A: Abdomen CR BARD : DAVOL [id number] 05/21/2024 [id number] / / [id number] Lens 22.5 Sn60wf - [id number] - [id number] Implanted:Qty : 1 on 09/15/2020 by Cece Roland MD at OR [facility] Right: Eye IVA : SURGICAL [id number] 05/13/2025 SN60 WF.225 / [id number] / [id number] Lens 21.5 Sn60wf - [id number] - [id number] Implanted:Qty : 1 on 12/19/2023 by Ramsey Burnett DO at OR [facility] Left: Eye IVA : SURGICAL 12/03/2024 SN60WF.2 15 / [id number] / documented as of this encounter [...] statute hierarchy) Jovita Ovalle Adult Child Health Black Leather Buffer resentative (appointed verbally by patient or by statute hierarchy) Care Teams Cut Off Worker Relationship Specialty Start Date End Date Gregory Rausch MD [address] [place] [address] PCP - General Family Medicine 02/12/20 documented as of this encounter
--- OUTSIDE RECORDS SUMMARY | 2024-10-02 03:31 | External Medical Summary | Summary of Care ---
Author Name Unknown Organization [facility] Address [address] [place] [address] Phone [phone] Care Team Providers Care Representative Government Relations Name Role Phone Gregory Rausch MD Primary Care Provider [phone] Reason for Visit * Reason Onset Date Comments [facility]: Maintenance 06/18/2024 Encounter Details Date Type Department Care Team (Late st Contact Info) Description 06/18/2024 9:00 AM EDT Scheduled Telephone [facility], [facility] [address] [place] [address] Coordinator, [facility] [address] [place] [address] Allergies Active Allergy Reactions Criticality Noted Date Comments Adhesive Tape 07/02/2017 Can tolerate band-aids Glycerin Other (Please comment) 03/12/2008 Topical agents with glycein-burning & itching Lactose 12/09/2014 Dairy - gas Lisinopril Cough 01/21/2010 Monosodium Glutamate Edema Other 03/12/2008 Hands and feet Penicillins Rash 11/14/2007 documented as of this encounter (statuses as of 06/18/2024) Medications Medication Sig Dispensed Refills Start Date [...] pump 1 Kit 5 04/10/2024 Active Nystatin 997850 UNIT/GM External Powder (Nystop)Indications: Candidal intertrigo APPLY [...] a week. 9 mL 1 06/16/2024 Active Mdafopgnsi-Razdkvn-M affeine 50-325-40 MG Oral Capsule (Fiorinal)Indication s:Acute intractable tension-type headache Take 1 Capsule by mouth every 4 hours as needed for Headache. 30 Capsule 06/16/2024 Active Fluticasone Propionate 50 MCG/ACT Nasal Suspension (Flonase)Indications :Dizziness Administer 2 Sprays into each nostril in the morning. 16 g 3 06/17/2024 Active documented as of this encounter (statuses as of 06/18/2024) Active Problems Problem Noted Date Diagnosed Date [...] [place] heart without angina pectoris 12/16/2019 Last [...] as of this encounter (statuses as of 06/18/2024) Resolved Problems Problem Noted Date Diagnosed Date [...] 12/21/2016 Diabetes mellitus 01/05/2014 12/21/2016 LEYVA RESEARCH OTHER*[id number] 01/05/2014 12/21/2016 Axillary pain 11/03/2013 12/21/2016 Obesity, [...] Record [facility] V710 Clinical Trial*[id number] 12/22/2010 04/14/2011 S/P aortic valve replacement 12/01/2010 08/26/2011 S/P AORTIC VALVE REPLACEMENT - #25 pericardial [place] valve 11/01/2010 06/28/2018 Overview: Aortic valve replacement with #25 pericardial Hernandez valve, model 2800TFX, serial number [id number] (Dr. Walker) [facility] V710 Clinical Trial*[id number] 10/18/2010 11/21/2010 Type 2 diabetes mellitus wit [...] as of this encounter (statuses as of 06/18/2024) Immunizations Name Administration Dates Next Due COVID-19 mRNA, LNP-s, No Pre serve, 2-Dose Series (Moderna) 10/25/2021,02/16/2021,01/18/2021 HEP A - Hepatitis A (Adult > 18 yrs) 06/07/2018, 12/05/2017 Hepatitis B, 20+ yrs 06/07/2018,01/08/20 18,12/05/2017,06/15,10/27/2013,09/12/2013 Pneumococcal Conjugate Vacci ne, 20-valent (Ontpazj20) 06/22/2023 Pneumococcal Polysaccharide PPV23 (Pneumovax) 01/02/2008 Seasonal [...] No 04/08/2024 Does the household have a [facility] source of income? (Household - for [...] Telephone Encounter - Angelica Welch RN - 06/18/2024 10:26 AM EDT [facility] Telephonic Nurse Follow-Up Call [facility] Subprogram: Focused Care Management (3-9 months) [...] New medication(s) added: Dificid Subjective: Condition Status: [facility]-unable to leave on primary number, call to secondary number x 2. No answer, unable to leave Current Concerns: Pt hospitalized at [facility] from 06/05/24-06/10/24 for diarrhea and worsening abdominal pain x 10 days C diff negative Pt discharged to home on 06/10/24 with prescription for Dificid 10 day course\\ Patient on for follow up call today to see how her symptoms are following course. Disposition: [facility] Future Visits Scheduled: Future Appointments-next 60 days Date/Time Provider Specialty Dept Phone 06/23/2024 9:00 AM (Arrive by 8:45 AM) Massimo Frias MD Family Medicine [phone] 06/30/2024 10:00 AM (Arrive by 9:45 AM) Arina Knapp PA-C Gastroenterology [phone] 07/08/2024 6:10 PM Pharmacist1, [facility] [phone] 07/31/2024 11:15 AM Ramsey Burnett DO Ophthalmology [phone] 08/12/2024 9:20 AM (Arrive by 9:05 AM) Gregory Rausch MD Family Medicine [phone] 11/03/2024 11:00 AM (Arrive by 10:45 AM) Christina Birch DO Sleep Disorders [phone] 11/04/2024 9:30 AM (Arrive by 9:15 AM) Tia Taylor CRNP Gastroenterology [phone] 11/27/2024 9:40 AM (Arrive by 9:25 AM) Fidelina Baumann MD Nephrology [phone] Angelica Welch, RN documented in this encounter Plan of Treatment Upcoming Encounters Date Type Department Care Team (Late st Contact Info) Description 06/19/2024 11:00 AM EDT Scheduled Telephone [facility] [address] [place] [address] Coordinator, [facility] [address] [place] [address] 06/23/2024 9:00 AM EDT Office Visit Family Practice [facility] [address] [place] [address] Massimo Frias MD [address] [place] [address] 06/30/2024 10:00 AM EDT Office Visit Gastroenterology, [facility] [address] [facility] [place] [address] Arina Knapp PA-C [address] [place] [address] 07/08/2024 6:10 PM EDT Pharmacy Pharmacy, [facility] [address] [facility] [place] [address] Pharmacist1, [facility] [address] [facility] [place] [address] 07/31/2024 11:15 AM EST Office Visit Ophthalmology, [facility] [address] [facility] [place] [address] Ramsey Burnett DO [address] [place] [address] 08/12/2024 9:20 AM EST Office Visit Family Practice [facility] [address] [facility] [place] [address] Gregory Rausch MD [address] [facility] [place] [address] 11/03/2024 11:00 AM EST Office Visit Sleep Disorders Ctr [facility] [address] [facility] [place] [phone] Christina Birch, [address] [facility] [place] [address] 11/04/2024 9:30 AM EST Office Visit Gastroenterology, [facility] [address] [facility] [place] [address] Tia Taylor CRNP [address] [facility] [place] [address] 11/27/2024 9:40 AM EST Office Visit Nephrology, [place] [address] [facility] [place] [address] Fidelina Baumann MD [address] [facility] [place] [address] Scheduled Procedures Name Priority Associated Diagnoses Date/Ti [...] Additional history exists CKD PHOS USE SMARTSET 14898 06/18/202405/26, 06/16/2023, 06/15/2023, Additional history exists HbA1c 08/01/2024 01/30/2024, 08/25, 07/31/2023, Additional history exists Diabetic Eye Exam 09/13/2024 09/13/2023, , 09/13/2023, Additional history exists B-12 09/18/2024 09/18/2023, 08/24, 2020, Additional history exists GFR 11/01/2024 05/01/2024, 12/23, 10/15/2023, Additional history exists Albumin/Creatinine Ratio 01/07/2025 024, 03/09/2023, 12/22/2022, Additional history exists CKD HGB USE SMARTSET 72904 01/07/202501/07, 01/08/2024, 10/15/2023, Additional history exists TSH [...] this encounter Medical Devices Implanted Type Area Rehab Services Aide Device Identifier Shelf Expiration Date Model / Serial / Lot Cath Roselia Single Lumen - [id number] Implanted:Qty : 1 on 03/12/2008 at OR [facility] Left: Chest [facility] *DO NOT USE* 07/25/2012 21-4053-24 / / [id number] Sut Steel 6 M654g - [id number] Implanted:Qty : 1 on 11/01/2010 at OR [facility] N/A: Chest DO NOT USE M654G / / Sut Steel 6 M654g - [id number] Implanted:Qty : 1 on 11/01/2010 at OR [facility] N/A: Chest DO NOT USE M654G / / Valve Tarsha Aortic [id number] - [id number] Implanted:Qty : 1 on 11/01/2010 at OR [facility] N/A: Heart [employer] DANIEL 05/20/2012 2800TFX-25 / / [id number] Description:[email or web address] Mesh Soft 46q00nh - [id number] Implanted:Qty : 1 on 10/10/2019 by Gigi Hendrickson MD at [facility] N/A: Abdomen CR BARD : DAVOL [id number] 05/21/2024 [id number] / / [id number] Lens 22.5 Sn60wf - [id number] - [id number] Implanted:Qty : 1 on 09/15/2020 by Renaldo Cook, Cece Acosta MD at OR [facility] Right: Eye IVA : SURGICAL [id number] 05/13/2025 SN60 WF.225 / [id number] / [id number] Lens 21.5 Sn60wf - [id number] - [id number] Implanted:Qty : 1 on 12/19/2023 by Ramsey Burnett DO at OR [facility] Left: Eye IVA : SURGICAL 12/03/2024 SN60WF.2 15 / [id number] / documented as of this encounter [...] statute hierarchy) Jovita Ovalle Adult Child Health Final Inspector Balance Wheel resentative (appointed verbally by patient or by statute hierarchy) Care Teams Representative Government Relations Relationship Specialty Start Date End Date Gregory Rausch MD [address] [place] [address] PCP - General Family Medicine 02/12/20 documented as of this encounter
--- OUTSIDE RECORDS SUMMARY | 2024-10-02 03:31 | External Medical Summary | Summary of Care ---
Author Name Unknown Organization [facility] Address [address] [place] [address] Phone [phone] Care Team Providers Care Metal Hardener Name Role Phone Gregory Rausch MD Primary Care Provider [phone] Reason for Visit * Reason Onset Date Comments Pharmacy Questions 06/17/2024 Encounter Details Date Type Department Care Team (Late st Contact Info) Description 06/17/2024 Telephone [facility], Cindy Da Silva [address] [place] [address] [place] [address] Pharmacist1, [facility] [address] Pharmacy Questions Allergies Active Allergy Reactions Criticality Noted Date [...] pump 1 Kit 5 04/10/2024 Active Nystatin 726456 UNIT/GM External Powder (Nystop)Indications: Candidal intertrigo APPLY [...] a week. 9 mL 1 06/16/2024 Active Mgwfzxjclq-Msnrwuo-M affeine 50-325-40 MG Oral Capsule (Fiorinal)Indication s:Acute [...] 09/28/2020 Coronary artery disease invo lving [place] coronary artery of [place] heart without angina pectoris 12/16/2019 Last Assessment [...] 12/21/2016 Diabetes mellitus 01/05/2014 12/21/2016 LEYVA RESEARCH OTHER*[id number] 01/05/2014 12/21/2016 Axillary pain 11/03/2013 12/21/2016 Obesity, [...] [facility] V710 Clinical Trial*[id number] 12/22/2010 04/14/2011 S/P aortic valve replacement 12/01/2010 08/26/2011 S/P AORTIC VALVE REPLACEMENT - #25 pericardial Mc valve 11/01/2010 06/28/2018 Overview: Aortic valve replacement with #25 pericardial Mc valve, model 2800TFX, serial number [id number] (Dr. Walker) [facility] V710 Clinical Trial*[id number] 10/18/2010 11/21/2010 Type 2 diabetes mellitus wit [...] 06/07/2018,01/08/20 18,12/05/2017,06/15,10/27/2013,09/12/2013 Pneumococcal Conjugate Vacci ne, 20-valent ([id number]) 06/22/2023 Pneumococcal Polysaccharide PPV23 (Pneumovax) 01/02/2008 Seasonal [...] Telephone Encounter - Neeraj Matthew RPh - 06/17/2024 11:38 AM EDT Contacts Contact Date/Time Type Contact Phone/Fax 06/17/2024 10:17 AM EDT Phone (Incoming) Jennifer [phone] 06/17/2024 11:37 AM EDT Phone (Outgoing) Jovita Rose (Self) [phone] Left Message 06/18/2024 12:38 PM EDT Phone (Outgoing) Stephanie (Other) [phone] Spoke to Stephanie and she was not with Sigrid. She asked I call tomorrow. 06/18/2024: Spoke to Stephanie and went through what was needed to start the Dexcom G7 and the Omnipod 5. SHe willcontact [facility] and get what they don't have (both readers) and let us knw when they arrive so we can schedule training (this would be the 5th or 6th time it is scheduled). Neeraj Romero RPh, [facility] Clinical Pharmacist [facility] 06/17/2024, 2:49 PM * Telephone Encounter - Malia Sepulveda, vault maker - 06/17/2024 10:17 AM EDT Caller's name: Jennifer Hearn call back number(OFFICE NUMBER FOR ): [phone] Reason for call: Patient's managed care coordinator calling in regards to appointment for Dexcom set up. Would like a call back from Netta to go over everything that needs to be brought to appointment. Still has to order transmitter from [facility]. Canceling 06/18 appointment for now until they have supplies they need. Would like a call back from [facility] when available. Malia Sepulvead Automation Architect Centralized [facility] [address] [place], [place] [address]Kayla [address] [place] [address] [phone] 06/17/2024,10:17 AM documented in this encounter Plan of Treatment Upcoming Encounters Date Type Department Care Team (Late st Contact Info) Description 06/19/2024 11:00 AM EDT Scheduled Telephone [facility], [facility] [address] [place] [address] Coordinator, [facility] [address] [place] [address] 06/23/2024 9:00 AM EDT Office Visit Family Practice [facility] [address] [place] [address] Massimo Frias MD [address] [place] [address] 06/30/2024 10:00 AM EDT Office Visit Gastroenterology, [facility] [address] [place] [address] Arina Knapp PA-C [address] [place] [address] 07/08/2024 6:10 PM EDT Pharmacy Pharmacy, [facility] [address] [facility] [place] [address] Pharmacist1, [facility] 200 [facility] [place] [address] 07/31/2024 11:15 AM EST Office Visit Ophthalmology, [facility] 132 [place] [address] Ramsey Burnett, DO [facility] [place] [address] 08/12/2024 9:20 AM EST Office Visit Family Practice [facility] 132 [facility] [place] [address] Gregory Rausch MD 132 [place] [address] 11/03/2024 11:00 AM EST Office Visit Sleep Disorders [facility]tr [facility] [address] [place] [phone] Christina Birch DO 132 [facility] [place] [address] 11/04/2024 9:30 AM EST Office Visit Gastroenterology, [facility] 132 [facility] [place] [address] Tia Taylor CRNP 132 [facility] [address] 11/27/2024 9:40 AM EST Office Visit Nephrology, [facility] [address] [place] [address] Fidelina Baumann MD [address] [place] [address] Scheduled Procedures Name Priority Associated Diagnoses Date/Ti [...] Additional history exists CKD PHOS USE SMARTSET 86608 06/18/2024 0901/2023, 06/16/2023, 06/15/2023, Additional history exists HbA1c 08/01/2024 01/30/2024, 08/25, 07/31/2023, Additional history exists Diabetic Eye Exam 09/13/2024 09/13/2023, , 09/13/2023, Additional history exists B-12 09/18/2024 09/18/2023, 08/24, 2020, Additional history exists GFR 11/01/2024 05/01/2024, 12/23, 10/15/2023, Additional history exists Albumin/Creatinine Ratio 01/07/2025 024, 03/09/2023, 12/22/2022, Additional history exists CKD HGB USE SMARTSET 06908 01/07/202501/07, 01/08/2024, 10/15/2023, Additional history exists TSH [...] this encounter Medical Devices Implanted Type Area Plastic Top Assembler Device Identifier Shelf Expiration Date Model / Serial / Lot Cath Roselia Single Lumen - [id number] Implanted:Qty : 1 on 03/12/2008 at OR [facility] Left: Chest [employer] *DO NOT USE* 07/25/2012 21-4053-24 / / [id number] Sut Steel 6 M654g - [id number] Implanted:Qty : 1 on 11/01/2010 at OR [facility] N/A: Chest DO NOT USE M654G / / Sut Steel 6 M654g - [id number] Implanted:Qty : 1 on 11/01/2010 at OR [facility] N/A: Chest DO NOT USE M654G / / Valve Tarsha Aortic [id number] - [id number] Implanted:Qty : 1 on 11/01/2010 at OR [facility] N/A: Heart [employer] DANIEL 05/20/2012 2800TFX-25 / / [id number] Description:[email or web address] Mesh Soft 80i82me - [id number] Implanted:Qty : 1 on 10/10/2019 by Gigi Hendrickson MD at OR [facility] N/A: Abdomen CR BARD : DAVOL [id number] 05/21/2024 [id number] / / [id number] Lens 22.5 Sn60wf - [id number] - [id number] Implanted:Qty : 1 on 09/15/2020 by Renaldo Cook, Cece Acosta MD at OR [facility] Right: Eye IVA : SURGICAL [id number] 05/13/2025 SN60 WF.225 / [id number] Lens 21.5 Sn60wf - [id number] - [id number] Implanted:Qty : 1 on 12/19/2023 by Ramsey Burnett DO at OR [facility] Left: Eye IVA : SURGICAL 12/03/2024 SN60WF.2 15 / [id number] / documented as of this encounter [...] statute hierarchy) Jovita Ovalle Adult Child Health Radio Tower Technician resentative (appointed verbally by patient or by statute hierarchy) Care Teams Metal Hardener Relationship Specialty Start Date End Date Gregory Rausch MD [address] [place] [address] PCP - General Family Medicine 02/12/20 documented as of this encounter
--- OUTSIDE RECORDS SUMMARY | 2024-10-02 03:31 | External Medical Summary | Summary of Care ---
Author Name Unknown Organization [facility] Address [address] [place] [address] Phone [phone] Care Team Providers Care Jewelry Bearing Maker Name Role Phone Gregory Rausch MD Primary Care Provider [phone] Reason for Visit * Reason Onset Date Comments Appointment 06/17/2024 Encounter Details Date Type Department Care Team (Late st Contact Info) Description 06/17/2024 Telephone [facility], [place] [address] [place] [address] Tram Margaux, DANYELLE [address] [place] [address] Appointment (//) Allergies Active Allergy Reactions Criticality Noted Date Comments Adhesive Tape 07/02/2017 Can tolerate band-aids Glycerin Other (Please comment) 03/12/2008 Topical agents with glycein-burning & itching Lactose 12/09/2014 Dairy - gas Lisinopril Cough 01/21/2010 Monosodium Glutamate Edema Other 03/12/2008 Hands and feet Penicillins Rash 11/14/2007 documented as of this encounter (statuses as of 06/17/2024) Medications Medication Sig Dispensed Refills Start Date [...] pump 1 Kit 5 04/10/2024 Active Nystatin 983893 UNIT/GM External Powder (Nystop)Indications: Candidal intertrigo APPLY [...] a week. 9 mL 1 06/16/2024 Active Creootmnps-Wbblwac-C affeine 50-325-40 MG Oral Capsule (Fiorinal)Indication s:Acute intractable tension-type headache Take 1 Capsule by mouth every 4 hours as needed for Headache. 30 Capsule 06/16/2024 Active Fluticasone Propionate 50 MCG/ACT Nasal Suspension (Flonase)Indications :Dizziness Administer 2 Sprays into each nostril in the morning. 16 g 3 06/17/2024 Active documented as of this encounter (statuses as of 06/17/2024) Active Problems Problem Noted Date Diagnosed Date [...] Coronary artery disease invo lving [place] coronary artery of [place] heart without angina pectoris 12/16/2019 Last Assessment [...] as of this encounter (statuses as of 06/17/2024) Resolved Problems Problem Noted Date Diagnosed Date [...] 12/21/2016 Diabetes mellitus 01/05/2014 12/21/2016 LEYVA RESEARCH OTHER*[id number] 01/05/2014 12/21/2016 Axillary pain 11/03/2013 12/21/2016 Obesity, [...] scanned into Electronic Medical Record [facility] V710 Clinical Trial*[id number] 12/22/2010 04/14/2011 S/P aortic valve replacement 12/01/2010 08/26/2011 S/P AORTIC VALVE REPLACEMENT - #25 pericardial Mc valve 11/01/2010 06/28/2018 Overview: Aortic valve replacement with #25 pericardial Mc valve, model 2800TFX, serial number [id number] (Dr. Walker) [facility] V710 Clinical Trial*[id number] 10/18/2010 11/21/2010 Type 2 diabetes mellitus wit [...] as of this encounter (statuses as of 06/17/2024) Immunizations Name Administration Dates Next Due COVID-19 mRNA, LNP-s, No Pre serve, 2-Dose Series (Moderna) 10/25/2021,02/16/2021,01/18/2021 HEP A - Hepatitis A (Adult > 18 yrs) 06/07/2018, 12/05/2017 Hepatitis B, 20+ yrs 06/07/2018,01/08/20 18,12/05/2017,06/15,10/27/2013,09/12/2013 Pneumococcal Conjugate Vacci ne, 20-valent (Gkobysx47) 06/22/2023 Pneumococcal Polysaccharide PPV23 (Pneumovax) 01/02/2008 Seasonal [...] Telephone Encounter - Margaux Ugalde OSA - 06/17/2024 10:59 AM EDT Request for phone call to follow up on diarrhea, abdominal pain, cramping and whether she has finished Dificid 10 day course. From RNCM documented in this encounter Plan of Treatment Upcoming Encounters Date Type Department Care Team (Late st Contact Info) Description 06/18/2024 9:00 AM EDT Scheduled Telephone [facility] [address] [place] [address] Coordinator, [facility] [address] [place] [address] 06/23/2024 9:00 AM EDT Office Visit Family Practice [facility] [address] [place] [address] Massimo Frias MD [address] [place] [address] 06/30/2024 10:00 AM EDT Office Visit Gastroenterology, [facility] [address] [place] [address] Arina Knapp PA-C [address] [place], [place] [address], [place] [address] 07/08/2024 6:10 PM EDT Pharmacy Pharmacy, [facility] [address] [facility] [place] [address] Pharmacist1, [facility] [address] [facility] [place] [address] 07/31/2024 11:15 AM EST Office Visit Ophthalmology, [facility] 132 [facility] [place] [address] Ramsey Burnett, DO [address] [facility] [place] [address] 08/12/2024 9:20 AM EST Office Visit Family Practice [facility] [address] [facility] [place] [address] Gregory Rausch MD 132 [facility] [place] [address] 11/03/2024 11:00 AM EST Office Visit Sleep Disorders [facility] 132 [facility] [place] [phone] Christina Birch, 132 [facility] [place] [address] 11/04/2024 9:30 AM EST Office Visit Gastroenterology, [facility] [address] [facility] [place] [address] Tia Taylor CRNP 132 [facility] [place] [address] 11/27/2024 9:40 AM EST Office Visit Nephrology, [facility] [address] [facility] [place] [address] Fidelina Baumann MD [address] [facility] [place] [address] Scheduled Procedures Name Priority Associated Diagnoses Date/Ti [...] Additional history exists CKD PHOS USE SMARTSET 21020 06/18/202405/26, 06/16/2023, 06/15/2023, Additional history exists HbA1c 08/01/2024 01/30/2024, 08/25, 07/31/2023, Additional history exists Diabetic Eye Exam 09/13/2024 09/13/2023, , 09/13/2023, Additional history exists B-12 09/18/2024 09/18/2023, 08/24, 2020, Additional history exists GFR 11/01/2024 05/01/2024, 12/23, 10/15/2023, Additional history exists Albumin/Creatinine Ratio 01/07/2025 024, 03/09/2023, 12/22/2022, Additional history exists CKD HGB USE SMARTSET 29888 01/07/202501/07, 01/08/2024, 10/15/2023, Additional history exists TSH 01/07/2025 01/08/2024, 09/25, 06/06/2023, Additional history exists Colonoscopy 06/27/2026 06/27/2023, 1209/2021, 09/13/2022, Additional history exists Colorectal Cancer Screening [...] this encounter Medical Devices Implanted Type Area Health Care Administrator Device Identifier Shelf Expiration Date Model / Serial / Lot Cath Roselia Single Lumen - [id number] Implanted:Qty : 1 on 03/12/2008 at OR [facility] Left: Chest [facility] *DO NOT USE* 07/25/2012 21-4053-24 / / [id number] Sut Steel 6 M654g - [id number] Implanted:Qty : 1 on 11/01/2010 at OR [facility] N/A: Chest DO NOT USE M654G / / Sut Steel 6 M654g - [id number] Implanted:Qty : 1 on 11/01/2010 at OR [facility] N/A: Chest DO NOT USE M654G / / Valve Tarsha Aortic [id number] - [id number] Implanted:Qty : 1 on 11/01/2010 at OR [facility] N/A: Heart [employer] DANIEL 05/20/2012 2800TFX-25 / / [id number] Description:[email or web address] Mesh Soft 32s45ny - [id number] Implanted:Qty : 1 on 10/10/2019 by Gigi Hendrickson MD at OR [facility] N/A: Abdomen CR BARD : DAVOL [id number] 05/21/2024 [id number] / / [id number] Lens 22.5 Sn60wf - [id number] - [id number] Implanted:Qty : 1 on 09/15/2020 by Cece Roland MD at OR [facility] Right: Eye IVA : SURGICAL [id number] 05/13/2025 SN60 WF.225 / [id number] / [id number] Lens 21.5 Sn60wf - [id number] - [id number] Implanted:Qty : 1 on 12/19/2023 by Ramsey Burnett DO at OR [facility] Left: Eye IVA : SURGICAL 12/03/2024 SN60WF.2 15 / [id number] / documented as of this encounter [...] by patient or by statute hierarchy) [facility] Child Health Mobility Architect Manager resentative (appointed verbally by patient or by statute hierarchy) [email or web address] Care Teams Jewelry Bearing Maker Relationship Specialty Start Date End Date Gregory Rausch MD [address] [place] [address] PCP - General Family Medicine 02/12/20 documented as of this encounter
--- OUTSIDE RECORDS SUMMARY | 2024-10-02 03:32 | External Medical Summary | Summary of Care ---
Author Name Unknown Organization [facility] Address [address] [place] [address] Phone [phone] Care Team Providers Care Petroleum Blending Plant Operator Name Role Phone Deon Rausch MD Primary Care Provider [phone] Reason for Visit * Reason Onset Date Comments Medication Refill 06/13/2024 Encounter Details Date Type Department Care Team (Late st Contact Info) Description 06/13/2024 Refill Family Practice [facility] [address] [place] [address] Deon Rausch MD 132 [place] [address] Heart failure, systolic, due to idiopathic cardiomyopathy (HCC); S/P AORTIC VALVE REPLACEMENT - #25 pericardial Mc valve; HTN, goal below 140/80; Dyslipidemia, goal LDL below 70; Hypothyroidism; Muscle tension headache; Type 2 diabetes mellitus with hemoglobin A1c goal of less than 7.0% ([facility]); Type 2 diabetes mellitus with diabetic mononeuropathy, with long-term current use of insulin ([facility]); Type 2 diabetes mellitus with both eyes affected by mild nonproliferative retinopathy and macular edema, with long-term current use of insulin ([facility]); Type 2 diabetes mellitus with stage 3a chronic kidney disease, with long-term current use of insulin ([facility]) Allergies Active Allergy Reactions Criticality Noted Date Comments Adhesive Tape 07/02/2017 Can tolerate band-aids Glycerin Other (Please comment) 03/12/2008 Topical agents with glycein-burning & itching Lactose 12/09/2014 Dairy - gas Lisinopril Cough 01/21/2010 Monosodium Glutamate Edema Other 03/12/2008 Hands and feet Penicillins Rash 11/14/2007 documented as of this encounter (statuses as of 06/16/2024) Medications Medication Sig Dispensed Refills Start Date [...] (Glucose)Indication s:DM type 2, not at goal ([facility]) 3 every 15 minutes until glucose is [...] once daily. 400 g 2 4 Active Fluticasone Propionate 50 MCG/ACT Nasal [...] ([facility]) Inject 36 Units under the skin in [...] pump 1 Kit 5 4 Active Nystatin 366606 UNIT/GM External Powder (Nystop)Indications :Candidal intertrigo APPLY [...] a week. 9 mL 1 4 Active Clopidogrel Bisulfate 75 MG [...] 5 4 06/14/20 24 Discontinu ed(Transfe rred) Butalbital-Aspirin- Caffeine 50-325-40 MG Oral Capsule (Fiorinal)Indicatio ns:Acute intractable tension-type headache Take 1 Capsule by mouth every 4 hours as needed for Headache. 30 Capsule 4 06/13/20 24 Discontinu ed(Refill) Atorvastatin Calcium 40 MG Oral Tablet (Lipitor)Indication s:Heart failure, systolic, due to idiopathic cardiomyopathy (HCC),S/P aortic valve replacement,HTN, goal below 140/80,Dyslipidemia , goal LDL below 70 Take 1 tablet by mouth daily to prevent heart attack/stroke, protect kidney, and cholesterol 90 Tablet 4 06/16/20 24 Discontinu ed(Refill) Clopidogrel Bisulfate 75 MG Oral Tablet (pLAVix) Take 1 Tablet by mouth in the morning. 90 Tablet 4 06/16/20 24 Discontinu ed(Refill) Levothyroxine Sodium 75 MCG Oral Tablet (Levoxyl)Indication s:Hypothyroidism TAKE 1 TAB BY MOUTH DAILY FIRST THING IN AM, AT LEAST 30 MIN PRIOR TO BREAKFAST OR OTHER MEDICATIONS 90 Tablet 4 06/16/20 24 Discontinu ed(Refill) Meclizine HCl 25 MG Oral Tablet (Antivert)Indicatio ns:Muscle tension headache Take 2 Tablets by mouth 2 times a day. 360 Tablet 4 06/16/20 24 Discontinu ed(Refill) Ozempic (2 MG/DOSE) 8 MG/3ML Subcutaneous Solution Pen-injector (Semaglutide (2 MG/DOSE))Indication s:weekly on fridays Inject 2 mg under the skin once a week. 9 mL 1 4 06/16/20 Discontinu ed(Refill) Gabapentin 300 MG Oral Capsule (Neurontin) Take 1 Capsule by mouth in the morning and 1 Capsule at noon and 1 Capsule before bedtime. 90 Capsule 2 4 06/16/20 24 Discontinu ed(Refill) documented as of this encounter (statuses as of 06/16/2024) Active Problems Problem Noted Date Diagnosed Date [...] as of this encounter (statuses as of 06/16/2024) Resolved Problems Problem Noted Date Diagnosed Date [...] 12/21/2016 Diabetes mellitus 01/05/2014 12/21/2016 LEYVA RESEARCH OTHER*[id number] 01/05/2014 12/21/2016 Axillary pain 11/03/2013 12/21/2016 Obesity, [...] into Electronic Medical Record [place] V710 Clinical Trial*[id number] 12/22/2010 04/14/2011 S/P aortic valve replacement 12/01/2010 08/26/2011 S/P AORTIC VALVE REPLACEMENT - #25 pericardial Mc valve 11/01/2010 06/28/2018 Overview: Aortic valve replacement with #25 pericardial Mc valve, model 2800TFX, serial number [id number] (Dr. Walker) [facility] V710 Clinical Trial*[id number] 10/18/2010 11/21/2010 Type 2 diabetes mellitus wit [...] as of this encounter (statuses as of 06/16/2024) Immunizations Name Administration Dates Next Due COVID-19 mRNA, LNP-s, No Pre serve, 2-Dose Series (Moderna) 10/25/2021,02/16/2021,01/18/2021 HEP A - Hepatitis A (Adult > 18 yrs) 06/07/2018, 12/05/2017 Hepatitis B, 20+ yrs 06/07/2018,01/08/20 18,12/05/2017,06/15,10/27/2013,09/12/2013 Pneumococcal Conjugate Vacci ne, 20-valent (Ivqykcn81) 06/22/2023 Pneumococcal Polysaccharide PPV23 (Pneumovax) 01/02/2008 Seasonal [...] No 04/08/2024 Does the household have a [facility] source of income? (Household - for ages [...] encounter Miscellaneous Notes * Addendum Note - Petar Pelayo [facility] - 06/16/2024 10:55 AM EDTAddended by: PETAR PELAYO on: 06/16/2024 10:55 AM Modules accepted: Orders * Telephone Encounter - Petar Pelayo [facility] - 06/16/2024 10:55 AM EDT Rerouted ThanksPetar, PharmD Clinical Pharmacist [facility] ([facility]) [phone] 06/16/2024 10:55 AM * Telephone Encounter - Ariana Foster CPhT - 06/16/2024 10:50 AM EDT Please reroute Rx to [facility] [address] [place]. Signed Prescriptions: Disp Refills Atorvastatin Calcium 40 MG Oral Tablet (Li*90 Tab*0 Sig: Take 1 tablet by mouth daily to prevent heart attack/stroke, protect kidney, and cholesterol Authorizing Provider: DEON RAUSCH Ordering User: PAUL LOPEZ Clopidogrel Bisulfate 75 MG [...] medication was ordered: 06/14/24 Patient Phone Numbers Labs: Lab Results Component [...] 01:49 PM * Telephone Encounter - Paul Lopez, [facility] - 06/14/2024 10:06 AM EDTSigned Prescriptions: Disp [...] 2 times a day.Authorizing Provider: DEON RAUSCH User:PALU LOPEZ Ozempic (2 MG/DOSE) 8 MG/3ML Subcutaneous *9 mL 1 Sig: Inject 2 mg under the skin once a week.Authorizing Provider: DEON RAUSCH User: PAUL LOPEZ Jldnwsigtz212 MG Oral Capsule (Neurontin) 90 Cap*2 Sig: Take 1 Capsule by mouth in the morning and 1 Capsule at noon and 1 Capsule before bedtime.Authorizing Provider: DEON RAUSCH User: PAUL LOPEZ * Telephone Encounter - Paul Lopez RP - 06/14/2024 10:03 AM EDT Rerouted remaining refills to new pharmacy as requested. PC to [facility] to cancel remaining refills on gabapentin rx. Thank you, Paul Lopez, PharmRamona Clinical Pharmacist [facility] ([facility]) 06/14/24 10:03 AM [phone] * Telephone Encounter - Elisa Lombardi PHARM Tech - 06/13/2024 9:13 AM EDT Tried to contact pt to confirm pharmacy but pt didn't answer. Please reroute Rx to [facility] [place]. Pending Prescriptions: Disp Refills Atorvastatin [...] Team (Late st Contact Info) Description 06/19/2024 9:40 AM EDT Office Visit Pharmacy, [facility] [address] [facility] [place] [address] Pharmacist1, [facility] [address] [facility] [place] [address] 06/23/2024 9:00 AM EDT Office Visit Family Practice [facility] [address] [place] [address] Massimo Frias MD [address] [place] [address] 06/30/2024 10:00 AM EDT Office Visit Gastroenterology, [facility] [address] [place] [address] Arina Knapp PA-C [facility] [address] [place] [address] 07/31/2024 11:15 AM EST Office Visit Ophthalmology, [facility] [address] [facility] [address] Ramsey Burnett, DO [address] [place] [address] 08/12/2024 9:20 AM EST Office Visit Family Practice [facility] [address] [place] [address] Deon [facility]ausch MD [address] [facility] [place] [address] 11/03/2024 11:00 AM EST Office Visit [facility] [address] [place] [phone] Christina Birch, 132 [facility] [place] [address] 11/04/2024 9:30 AM EST Office Visit Gastroenterology, [facility] [address] [place] [address] Tia Taylor CRNP [address] [facility] [place] [address] 11/27/2024 9:40 AM EST Office Visit Nephrology, [facility] [address] [place] [address] Fidelina Baumann MD [address] [place] [address] Scheduled Procedures Name Priority Associated Diagnoses Date/Ti [...] Additional history exists CKD PHOS USE SMARTSET 16068 06/18/202405/26, 06/16/2023, 06/15/2023, Additional history exists HbA1c 08/01/2024 01/30/2024, 08/25, 07/31/2023, Additional history exists Diabetic Eye Exam 09/13/2024 09/13/2023, , 09/13/2023, Additional history exists B-12 09/18/2024 09/18/2023, 08/24, 2020, Additional history exists GFR 11/01/2024 05/01/2024, 12/23, 10/15/2023, Additional history exists Albumin/Creatinine Ratio 01/07/2025 024, 03/09/2023, 12/22/2022, Additional history exists CKD HGB USE SMARTSET 42804 01/07/202501/07, 01/08/2024, 10/15/2023, Additional history exists TSH [...] this encounter Medical Devices Implanted Type Area Hothouse Worker Device Identifier Shelf Expiration Date Model / Serial / Lot Cath Roselia Single Lumen - [id number] Implanted:Qty : 1 on 03/12/2008 at OR [facility] Left: Chest [facility] *DO NOT USE* 07/25/2012 21-4053-24 / / [id number] Sut Steel 6 M654g - [id number] Implanted:Qty : 1 on 11/01/2010 at OR [facility] N/A: Chest DO NOT USE M654G / / Sut Steel 6 M654g - [id number] Implanted:Qty : 1 on 11/01/2010 at OR [facility] N/A: Chest DO NOT USE M654G / / Valve Tarsha Aortic [id number] - [id number] Implanted:Qty : 1 on 11/01/2010 at OR [facility] N/A: Heart [employer] DANIEL 05/20/2012 2800TFX-25 / / [id number] Description:[email or web address] Mesh Soft 61a44oe - [id number] Implanted:Qty : 1 on 10/10/2019 by Gigi Hendrickson MD [place] [facility] [place]/A: Abdomen CR BARD : DAVOL [id number] 05/21/2024 [id number] / / [id number] Lens 22.5 Sn60wf - [id number] - [id number] Implanted:Qty : 1 on 09/15/2020 by Renaldo Cook, Cece Acosta MD at OR [facility] Right: Eye IVA : SURGICAL [id number] 05/13/2025 SN60 WF.225 / [id number] / [id number] Lens 21.5 Sn60wf - [id number] - [id number] Implanted:Qty : 1 on 12/19/2023 by Ramsey Burnett DO at OR [facility] Left: Eye IVA : SURGICAL 12/03/2024 SN60WF.2 15 / [id number] / documented as of this encounter [...] insulin ([facility]) Type 2 diabetes mellitus with both eyes affected by mild nonproliferative retinopathy and macular edema, with long-term current use of insulin ([facility]) Type 2 diabetes mellitus with stage 3a chronic kidney disease, with long-term current use of insulin ([facility]) documented in this encounter Advance Directives * [...] statute hierarchy) Jovita Yamile Adult Child Health Flight Control Tower Operator resentative (appointed verbally by patient or by statute hierarchy) [email or web address] Care Teams Petroleum Blending Plant Operator Relationship Specialty Start Date End Date Deon Rausch MD [address] [place] [address] PCP - General Family Medicine 02/12/20 documented as of this encounter
--- OUTSIDE RECORDS SUMMARY | 2024-10-02 03:32 | External Medical Summary | Summary of Care ---
Author Name Unknown Organization [facility] Address [address] [place] [address] Phone [phone] Care Team Providers Care Wafer Abrading Machine Tender Name Role Phone Deon Rausch MD Primary Care Provider [phone] Reason for Visit * Reason Onset Date Comments Medication Refill 06/13/2024 Encounter Details Date Type Department Care Team (Late st Contact Info) Description 06/13/2024 Refill Family Practice [facility] [address] [place] [address] Deon Rausch MD [address] [place] [address] Acute intractable tension-type headache Allergies [...] type 2, not at goal ([facility]) 3 every 15 minutes until glucose [...] use of insulin ([facility]) Inject 36 Units under the skin [...] pump 1 Kit 5 4 Active Nystatin 005493 UNIT/GM External Powder (Nystop)Indications :Candidal intertrigo APPLY [...] the morning. 30 Capsule 1 4 Active Butalbital-Aspirin- Caffeine 50-325-40 MG Oral Capsule (Fiorinal)Indicatio ns:Acute intractable tension-type headache Take 1 Capsule by mouth every 4 hours as needed for Headache. 30 Capsule 4 Active Clopidogrel Bisulfate 75 MG Oral [...] eye 09/28/2020 Coronary artery disease invo lving belkofski coronary artery of belkofski heart without angina pectoris 12/16/2019 Last Assessment [...] 12/21/2016 Diabetes mellitus 01/05/2014 12/21/2016 LEYVA RESEARCH OTHER*[id number] 01/05/2014 12/21/2016 Axillary pain 11/03/2013 12/21/2016 Obesity, [...] 09/201008/26/2011 12/21/2016 FOLLOWING SURGERY, UNSPECIFI ED ([facility] 08/25/2011) 08/26/2011 12/21/2016 ADVANCE DIRECTIVE INFORMATION 04/17/2011 12/21/2016 Overview: Yes, Patient instructed to provide copy of advance directive for provider to review and to be scanned into Electronic Medical Record ADVANCE DIRECTIVE INFORMATION 03/01/2011 12/21/2016 Overview: Yes, Patient instructed to provide copy of advance directive for provider to review and to be scanned into Electronic Medical Record [facility] V710 Clinical Trial*[id number] 12/22/2010 04/14/2011 S/P aortic valve replacement 12/01/2010 08/26/2011 S/P AORTIC VALVE REPLACEMENT - #25 pericardial Mc valve 11/01/2010 06/28/2018 Overview: Aortic valve replacement with #25 pericardial Mc valve, model 2800TFX, serial number [id number] (Dr. Walker) [facility] V710 Clinical Trial*[id number] 10/18/2010 11/21/2010 Type 2 diabetes mellitus wit [...] 06/07/2018,01/08/20 18,12/05/2017,06/15,10/27/2013,09/12/2013 Pneumococcal Conjugate Vacci ne, 20-valent (Sslnfny85) 06/22/2023 Pneumococcal Polysaccharide PPV23 (Pneumovax) 01/02/2008 Seasonal [...] Miscellaneous Notes * Addendum Note - Petar ePlayo RPh - 06/16/2024 10:56 AM EDTAddended by: PETAR PELAYO on: 06/16/2024 10:56 AM Modules accepted: Orders * Telephone Encounter - Petar Pelayo RPh - 06/16/2024 10:56 AM EDT Routed to incorrect pharmacy Please reroute Rx to [facility] [address] [place]. Thanks, Petar Pelayo, PharmD Clinical Pharmacist [facility] ([facility]) [phone] 06/16/2024 10:56 AM * Telephone Encounter - Ariana Foster CPhT - 06/16/2024 10:49 AM EDT Please reroute Rx to [facility] [place] [address] [place] [place]. Signed Prescriptions: Disp Refills Dnjbvqhvah-Vemmqet-Hzcigcsy 50-325-40 MG O*30 Cap*0 Sig: Take 1 Capsule by mouth every 4 hours as needed for Headache. Authorizing Provider: DEON RAUSCH Last Visit: 06/05/2024 (in office), 09/12/2023 (telemedicine) 06/23/2024 If no future appointments scheduled, and last appointment is greater than a year ago, please schedule patient for a follow-up appointment Last date the medication was ordered: 06/16/24 Patient Phone Numbers Labs: Lab Results Component [...] 12/09/2019 01:49 PM * Telephone Encounter - Deon Rausch MD - 06/16/2024 7:52 AM EDTSigned Prescriptions: Disp Refills Kaiekiabzq-Lznjhpf-Auenbrgn 50-325-40 MG O*30 Cap*0 Sig: Take 1 Capsule by mouth every 4 hours as needed for Headache. Authorizing Provider: DEON RAUSCH * Telephone Encounter - Nan Miller [facility] - 06/14/2024 8:22 AM EDTPending Prescriptions: Disp Refills Tfwbsuookm-Swbhypo-Hdlbavmo 50-325-40 MG O*30 Cap*0 Sig: Take 1 Capsule by mouth every 4 hours as needed for Headache. * Telephone Encounter - Nan Miller [facility] - 06/14/2024 8:22 AM EDT I have reviewed the patients controlled substance dispensing history in the Prescription Drug Monitoring Program in compliance with the [place] regulations before prescribing a controlled substance. PDMP checked on 06/14/2024. Pending Prescriptions: Disp Refills Zsfwgxbfge-Brammet-Lioiqids 50-325-40 MG *30 Cap*0 Sig: Take 1 Capsule by mouth every 4 hours as needed for Headache. Last Visit: 06/05/2024 (in office), 09/12/2023 (telemedicine) Next Visit: 06/23/2024 Date medication was last filled: 05/07/24 Date medication is due for refill: 05/11/24 Pharmacy: [facility] [place] Is this request for a controlled substance? Yes and Urine Drug Screen Not completed Toxicology results: No results found. However, due to the size of the patient record, not all encounters were searched.Please check Results Review for a complete set of results. Please approve if appropriate. Thanks, Nan Miller PharmD Clinical Pharmacist [facility] [phone] 06/14/2024 8:22 AM * Telephone Encounter - Elisa Lombardi PHARM Tech - 06/13/2024 9:14 AM EDT Tried to contact pt to confirm pharmacy but pt didn't answer. Did you pend patient's preferred pharmacy and medication before forwarding?yes Pharmacy: [facility] Pending Prescriptions: Disp Refills Ikkdnnieuk-Dshsaez-Tajtnkfh 50-325-40 MG *30 Cap*0 Sig: Take 1 Capsule by mouth every 4 hours as needed for Headache. Last Visit: 06/05/2024 (in office), 09/12/2023 (telemedicine) Next Visit: 06/23/2024 If no future appointments scheduled, and last appointment is greater than a year ago, please schedule patient for a follow-up appointment Last date the medication was ordered: 05/07/2024 Is this request for a controlled substance?Yes, What was the last refill date 05/07/2024 w/ ezottanj86 and dosage 50-325-40 and Urine Drug Screen [...] 06/19/2024 9:40 AM EDT Office Visit Pharmacy, [facility] [address] [facility] [place] [address] Pharmacist1, [facility] [address] [facility] [place] [address] 06/23/2024 9:00 AM EDT Office Visit Family Practice [facility] [address] [place] [address] Massimo Frias MD [address] [place] [address] 06/30/2024 10:00 AM EDT Office Visit Gastroenterology, [facility] [address] [place] [address] Arina Knapp PA-C [address] [place] [address] 07/31/2024 11:15 AM EST Office Visit Ophthalmology, [facility] [address] [place] [address] Ramsey Burnett, DO [address] [place] [address] 08/12/2024 9:20 AM EST Office Visit Family Practice [facility] [address] [facility] [place] [address] Deon Rausch MD 132 [facility] [place] [address] 11/03/2024 11:00 AM EST Office Visit Sleep Disorders [facility] 132 [facility] [place] [id number] Christina Birch, DO [address] [facility] [place] [address] 11/04/2024 9:30 AM EST Office Visit Gastroenterology, [facility] [address] [facility] [place] [address] Tia Taylor CRNP 132 [facility] [place] [address] 11/27/2024 9:40 AM EST Office Visit Nephrology, [facility] [address] [facility] [place] [address] Fidelina Baumann MD [address] [place] [address] Scheduled Procedures Name Priority Associated Diagnoses Date/Ti [...] Additional history exists CKD PHOS USE SMARTSET 78503 06/18/202405/26, 06/16/2023, 06/15/2023, Additional history exists HbA1c 08/01/2024 01/30/2024, 08/25, 07/31/2023, Additional history exists Diabetic Eye Exam 09/13/2024 09/13/2023, , 09/13/2023, Additional history exists B-12 09/18/2024 09/18/2023, 08/24, 2020, Additional history exists GFR 11/01/2024 05/01/2024, 12/23, 10/15/2023, Additional history exists Albumin/Creatinine Ratio 01/07/2025 024, 03/09/2023, 12/22/2022, Additional history exists CKD HGB USE SMARTSET 79834 01/07/202501/07, 01/08/2024, 10/15/2023, Additional history exists TSH [...] this encounter Medical Devices Implanted Type Area Air Drier Machine Operator Device Identifier Shelf Expiration Date Model / Serial / Lot Cath Roselia Single Lumen - [id number] Implanted:Qty : 1 on 03/12/2008 at OR [facility] Left: Chest [facility] *DO NOT USE* 07/25/2012 21-4053-24 / / [id number] Sut Steel 6 M654g - [id number] Implanted:Qty : 1 on 11/01/2010 at OR [facility] N/A: Chest DO NOT USE M654G / / Sut Steel 6 M654g - [id number] Implanted:Qty : 1 on 11/01/2010 at OR [facility] N/A: Chest DO NOT USE M654G / / Valve Tarsha Aortic [id number] - [id number] Implanted:Qty : 1 on 11/01/2010 at OR [facility] N/A: Heart [employer] DANIEL 05/20/2012 2800TFX-25 / / [id number] Description:[email or web address] Mesh Soft 21i05nj - [id number] Implanted:Qty : 1 on 10/10/2019 by Gigi Hendrickson MD at [place] [facility] [place] N/A: Abdomen CR BARD : DAVOL [id number] 05/21/2024 [id number] / / [id number] Lens 22.5 Sn60wf - [id number] - [id number] Implanted:Qty : 1 on 09/15/2020 by Renaldo Cook, Cece Acosta MD at OR [facility] Right: Eye IVA : SURGICAL [id number] 05/13/2025 SN60 WF.225 / [id number] / [id number] Lens 21.5 Sn60wf - [id number] - [id number] Implanted:Qty : 1 on 12/19/2023 by Ramsey Burnett, at OR [facility] Left: Eye IVA : SURGICAL 12/03/2024 SN60WF.2 15 / [id number] / documented as of this encounter [...] statute hierarchy) Jovita Ovalle Adult Child Health Metal Sheet Roller Operator resentative (appointed verbally by patient or by statute hierarchy) [email or web address] Care Teams Wafer Abrading Machine Tender Relationship Specialty Start Date End Date Deon Rausch MD [address] [place] [address] PCP - General Family Medicine 02/12/20 documented as of this encounter
--- OUTSIDE RECORDS SUMMARY | 2024-10-02 03:32 | External Medical Summary | Summary of Care ---
Author Name Unknown Organization [facility] Address [address] [place] [address] Phone [phone] Care Team Providers Care Lift Supervisor Name Role Phone Deon Rausch MD Primary Care Provider [phone] Reason for Visit * Reason Onset Date Comments Medication Refill 06/13/2024 Encounter Details Date Type Department Care Team (Late st Contact Info) Description 06/13/2024 Refill Family Practice [facility] [address] [place] [address] Deon Rausch MD [address] [place] [address] Acute intractable tension-type headache Allergies [...] pump 1 Kit 5 4 Active Nystatin 531793 UNIT/GM External Powder (Nystop)Indications :Candidal intertrigo APPLY [...] eye 09/28/2020 Coronary artery disease invo lving [place] coronary artery of [place] heart without angina pectoris 12/16/2019 Last Assessment [...] 12/21/2016 Diabetes mellitus 01/05/2014 12/21/2016 LEYVA RESEARCH OTHER*[id number] 01/05/2014 12/21/2016 Axillary pain 11/03/2013 12/21/2016 Obesity, [...] cath 09/201008/26/2011 12/21/2016 FOLLOWING SURGERY, UNSPECIFI ED ([facility] 08/25/2011) 08/26/2011 12/21/2016 ADVANCE DIRECTIVE INFORMATION 04/17/2011 12/21/2016 Overview: Yes, Patient instructed to provide copy of advance directive for provider to review and to be scanned into Electronic Medical Record ADVANCE DIRECTIVE INFORMATION 03/01/2011 12/21/2016 Overview: Yes, Patient instructed to provide copy of advance directive for provider to review and to be scanned into Electronic Medical Record [facility] V710 Clinical Trial*[id number] 12/22/2010 04/14/2011 S/P aortic valve replacement 12/01/2010 08/26/2011 S/P AORTIC VALVE REPLACEMENT - #25 pericardial Mc valve 11/01/2010 06/28/2018 Overview: Aortic valve replacement with #25 pericardial Mc valve, model 2800TFX, serial number [id number] (Dr. 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 Signed Prescriptions: Disp Refills Okxmuxfrpr-Jkutaga-Oqiawqri 50-325-40 MG O*30 Cap*0 Sig: Take 1 [...] 06/16/2024 7:52 AM EDTSigned Prescriptions: Disp Refills Hffeakrjzt-Ftifhiu-Oektfbsj 50-325-40 MG O*30 Cap*0 Sig: Take 1 Capsule by mouth every 4 hours as needed for Headache. Authorizing Provider: DEON RAUSCH * Telephone Encounter - Nan Miller [facility] - 06/14/2024 8:22 AM EDTPending Prescriptions: Disp Refills Jbjekvdnas-Cvkyyrc-Tnvpxlkz 50-325-40 MG O*30 Cap*0 Sig: Take 1 Capsule by mouth every 4 hours as needed for Headache. * Telephone Encounter - Nan Miller RP - 06/14/2024 8:22 AM EDT I have reviewed the patients controlled substance dispensing history in the Prescription Drug Monitoring Program in compliance with the [facility] regulations before prescribing a controlled substance. PDMP checked on 06/14/2024. Pending Prescriptions: Disp Refills Lsibcxvzuj-Qcykbyl-Rhcbedph 50-325-40 MG *30 Cap*0 Sig: Take 1 Capsule by mouth every 4 hours as needed for Headache. Last Visit: 06/05/2024 (in office), 09/12/2023 (telemedicine) Next Visit: 06/23/2024 Date medication was last filled: 05/07/24 Date medication is due for refill: 05/11/24 [facility]acy: [facility] ([place] Is this request for a controlled substance? Yes and Urine Drug Screen Not completed Toxicology results: No results found. However, due to the size of the patient record, not all encounters were searched.Please check Results Review for a complete set of results. Please approve if appropriate. Thanks, Nan Miller, [place] Clinical Pharmacist Centralized Clinical Pharmacy Services [phone] 06/14/2024 8:22 AM * Telephone Encounter - Elisa Lombardi PHARM Tech - 06/13/2024 9:14 AM EDT Tried to contact pt to confirm pharmacy but pt didn't answer. Did you pend patient's preferred pharmacy and medication before forwarding?yes Pharmacy: [facility] ([place] Pending Prescriptions: Disp Refills Deicwjriml-Txbkmme-Rqhrsxkz 50-325-40 MG *30 Cap*0 Sig: Take 1 [...] was the last refill date 05/07/2024 w/ [id number] and dosage 50-325-40 and Urine Drug Screen [...] 06/19/2024 9:40 AM EDT Office Visit Pharmacy, [facility] [address] [facility] [place] [address] Pharmacist1, [facility] [address] [place] [address] 06/23/2024 9:00 AM EDT Office Visit [facility] 132 [facility] [place] [address] Massimo Frias MD 132 [facility] [place] [address] 06/30/2024 10:00 AM EDT Office Visit Gastroenterology, [facility] 132 [facility] [place] [address] Arina Knapp PA-C [address] [place] [address] 07/31/2024 11:15 AM EST Office Visit Ophthalmology, [facility] 132 [facility] [place] [address] Ramsey Burnett, DO [address] [place] [address] 08/12/2024 9:20 AM EST Office Visit [facility] 132 [facility] [place] [address] Deon Rausch MD 132 [facility] [place] [address] 11/03/2024 11:00 AM EST Office Visit Sleep Disorders Ctr [facility] 132 [facility] [place] [phone] Christina Birch, DO 132 [facility] [place] [address] 11/04/2024 9:30 AM EST Office Visit Gastroenterology, [facility] [address] [place] [address] Tia Taylor CRNP [address] [place] [address] 11/27/2024 9:40 AM EST Office Visit Nephrology, [facility] [address] [place] [address] Fidelina Baumann MD [address] [place] [address] Scheduled Procedures Name Priority Associated Diagnoses Date/Ti [...] Additional history exists CKD PHOS USE SMARTSET 90381 06/18/202405/26, 06/16/2023, 06/15/2023, Additional history exists HbA1c 08/01/2024 01/30/2024, 08/25, 07/31/2023, Additional history exists Diabetic Eye Exam 09/13/2024 09/13/2023, , 09/13/2023, Additional history exists B-12 09/18/2024 09/18/2023, 08/24, 2020, Additional history exists GFR 11/01/2024 05/01/2024, 12/23, 10/15/2023, Additional history exists Albumin/Creatinine Ratio 01/07/2025 024, 03/09/2023, 12/22/2022, Additional history exists CKD HGB USE SMARTSET 27588 01/07/202501/07, 01/08/2024, 10/15/2023, Additional history exists TSH [...] this encounter Medical Devices Implanted Type Area Career Development Associate Device Identifier Shelf Expiration Date Model / Serial / Lot Cath Roselia Single Lumen - [id number] Implanted:Qty : 1 on 03/12/2008 at OR [facility] Left: Chest [facility] *DO NOT USE* 07/25/2012 21-4053-24 / / [id number] Sut Steel 6 M654g - [id number] Implanted:Qty : 1 on 11/01/2010 at OR [facility] N/A: Chest DO NOT USE M654G / / Sut Steel 6 M654g - [id number] Implanted:Qty : 1 on 11/01/2010 at OR [facility] N/A: Chest DO NOT USE M654G / / Valve Tarsha Aortic [id number] - [id number] Implanted:Qty : 1 on 11/01/2010 at OR [facility] N/A: Heart [employer] D[employer]EL 05/20/2012 2800TFX-25 / / [id number] Description:[email or web address] Mesh Soft 35h94jd - [id number] Implanted:Qty : 1 on 10/10/2019 by Gigi Hendrickson MD at [facility] N/A: Abdomen CR BARD : DAVOL [id number] 05/21/2024 [id number] / / [id number] Lens 22.5 Sn60wf - [id number] - [id number] Implanted:Qty : 1 on 09/15/2020 by Renaldo Cook, Cece Acosta MD at OR [facility] Right: Eye IVA : SURGICAL [id number] 05/13/2025 SN60 WF.225 / [id number] / [id number] Lens 21.5 Sn60wf - [id number] - [id number] Implanted:Qty : 1 on 12/19/2023 by Ramsey Burnett DO at OR [facility] Left: Eye IVA : SURGICAL 12/03/2024 SN60WF.2 15 / [id number] / documented as of this encounter [...] statute hierarchy) Jovita Ovalle Adult Child Health Workers Compensation Claims Specialist resentative (appointed verbally by patient or by statute hierarchy) Care Teams Lift Supervisor Relationship Specialty Start Date End Date Deon Rausch MD [address] [place] [address] PCP - General Family Medicine 02/12/20 documented as of this encounter
--- OUTSIDE RECORDS SUMMARY | 2024-10-02 03:32 | External Medical Summary | Summary of Care ---
Author Name Unknown Organization [facility] Address [address] [place] [address] Phone [phone] Care Team Providers Care Senior Technologist Name Role Phone Gregory Rausch MD Primary Care Provider [phone] Encounter Details Date Type Department Care Team (Late st Contact Info) Description 06/12/2024 Population Health External Data Unspecified Department Allergies [...] once daily. 400 g 2 01/10/2024 Active Fluticasone Propionate 50 MCG/ACT Nasal [...] of insulin ([facility]) Inject 36 Units under the skin in [...] pump 1 Kit 5 04/10/2024 Active Nystatin 695094 UNIT/GM External Powder (Nystop)Indication s:Candidal intertrigo APPLY [...] 12/21/2016 Diabetes mellitus 01/05/2014 12/21/2016 LEYVA RESEARCH OTHER*[id number] 01/05/2014 12/21/2016 Axillary pain 11/03/2013 12/21/2016 Obesity, [...] Record [facility] V710 Clinical Trial*[id number] 12/22/2010 04/14/2011 S/P aortic valve replacement 12/01/2010 08/26/2011 S/P AORTIC VALVE REPLACEMENT - #25 pericardial Mc valve 11/01/2010 06/28/2018 Overview: Aortic valve replacement with #25 pericardial Mc valve, model 2800TFX, serial number [id number] (Dr. Walker) [facility] V710 Clinical Trial*[id number] 10/18/2010 11/21/2010 Type 2 diabetes mellitus wit [...] 06/07/2018,01/08/20 18,12/05/2017,06/15,10/27/2013,09/12/2013 Pneumococcal Conjugate Vacci ne, 20-valent (Tuzifgs61) 06/22/2023 Pneumococcal Polysaccharide PPV23 (Pneumovax) 01/02/2008 Seasonal [...] 06/19/2024 9:40 AM EDT Office Visit Pharmacy, [facility] 200 [facility] [place] [address] Pharmacist1, [facility] [address] [place] [address] 06/23/2024 9:00 AM EDT Office Visit Family Practice [facility] [address] [place] [address] Massimo Frias MD [address] [facility] [place] [address] 06/30/2024 10:00 AM EDT Office Visit Gastroenterology, [facility] [address] [place] [address] Arina Knapp PA-C [address] [place] [address] 07/31/2024 11:15 AM EST Office Visit Ophthalmology, [facility] 132 [place] [address] Ramsey Burnett, DO [address] [place] [address] 08/12/2024 9:20 AM EST Office Visit Family Practice [facility] 132 [facility] [place] [address] Gregory Rausch MD 132 [facility] [place] [address] 11/03/2024 11:00 AM EST Office Visit [facility] Disorders Ctr [facility] [place] [phone] Christina Birch DO 132 [place] [address] 11/04/2024 9:30 AM EST Office Visit Gastroenterology, [facility] 132 [place] [address] Tia Taylor CRNP 132 [place] [address] 11/27/2024 9:40 AM EST Office Visit Nephrology, [facility] 200 [facility] [place] [address] Fidelina Baumann MD [address] [place] [address] Scheduled Procedures Name Priority Associated Diagnoses Date/Ti [...] Additional history exists CKD PHOS USE SMARTSET 13900 06/18/2024 0901/2023, 06/16/2023, 06/15/2023, Additional history exists HbA1c 08/01/2024 01/30/2024, 08/25, 07/31/2023, Additional history exists Diabetic Eye Exam 09/13/2024 09/13/2023, , 09/13/2023, Additional history exists B-12 09/18/2024 09/18/2023, 08/24, 2020, Additional history exists GFR 11/01/2024 05/01/2024, 12/23, 10/15/2023, Additional history exists Albumin/Creatinine Ratio 01/07/2025 024, 03/09/2023, 12/22/2022, Additional history exists CKD HGB USE SMARTSET 43318 01/07/202501/07, 01/08/2024, 10/15/2023, Additional history exists TSH [...] this encounter Medical Devices Implanted Type Area Counselor Manager Device Identifier Shelf Expiration Date Model / Serial / Lot Cath Roselia Single Lumen - [id number] Implanted:Qty : 1 on 03/12/2008 at OR [facility] Left: Chest [facility] *DO NOT USE* 07/25/2012 21-4053-24 / / [id number] Sut Steel 6 M654g - [id number] Implanted:Qty : 1 on 11/01/2010 at OR [facility] N/A: Chest DO NOT USE M654G / / Sut Steel 6 M654g - [id number] Implanted:Qty : 1 on 11/01/2010 at OR [facility] N/A: Chest DO NOT USE M654G / / Valve Tarsha Aortic [id number] - [id number] Implanted:Qty : 1 on 11/01/2010 at OR [facility] N/A: Heart [employer] 05/20/2012 2800TFX-25 / / [id number] Description:[email or web address] Mesh Soft 91e58pi - [id number] Implanted:Qty : 1 on 10/10/2019 by Gigi Hendrickson MD at OR [facility] N/A: Abdomen CR BARD : DAVOL [id number] 05/21/2024 [id number] / / [id number] Lens 22.5 Sn60wf - [id number] - [id number] Implanted:Qty : 1 on 09/15/2020 by Renal[place] Cook, Cece Acosta MD at OR [facility] Right: Eye IVA : SURGICAL [id number] 05/13/2025 SN60 WF.225 / [id number] Lens 21.5 Sn60wf - [id number] - [id number] Implanted:Qty : 1 on 12/19/2023 by Ramsey Burnett DO at OR [facility] Left: Eye IVA : SURGICAL 12/03/2024 SN60WF.2 15 / [id number] / documented as of this encounter [...] statute hierarchy) Jovita Ovalle Adult Child Health Electrical Contacts Adjuster resentative (appointed verbally by patient or by statute hierarchy) Care Teams Senior Technologist Relationship Specialty Start Date End Date Gregory Rausch MD [address] [place] [address] PCP - General Family Medicine 02/12/20 documented as of this encounter
--- OUTSIDE RECORDS SUMMARY | 2024-10-02 03:32 | External Medical Summary | Summary of Care ---
Author Name Unknown Organization [facility] Address [address] [place] [address] Phone [phone] Care Team Providers Care Chemical Analytical Sampler Name Role Phone Deon Rausch MD Primary Care Provider [phone] Reason for Visit * Reason Onset Date Comments Medication Refill 06/13/2024 Encounter Details Date Type Department Care Team (Late st Contact Info) Description 06/13/2024 Refill Family Practice [facility] 132 [place] [address] Deon Rausch MD 132 [place] [address] Heart failure, systolic, due to idiopathic cardiomyopathy (HCC); S/P AORTIC VALVE REPLACEMENT - #25 pericardial Mc valve; HTN, goal below 140/80; Dyslipidemia, goal LDL below 70; Hypothyroidism; Muscle tension headache; Type 2 diabetes mellitus with hemoglobin A1c goal of less than 7.0% ([facility]); Type 2 diabetes mellitus with diabetic mononeuropathy, with long-term current use of insulin ([facility]); Type 2 diabetes mellitus with both eyes affected by mild nonproliferative retinopathy and macular edema, with long-term current use of insulin ([facility]); Type 2 diabetes mellitus with stage 3a chronic kidney disease, with long-term current use of insulin ([facility]) Allergies Active Allergy Reactions Criticality [...] (Glucose)Indication s:DM type 2, not at goal ([facility]) 3 every 15 minutes until [...] use of insulin ([facility]) Inject 36 Units under the skin in the morning. 6 mL 2 4 Active Insulin Aspart 100 UNIT/ML Injection Solution (NovoLOG)Indication s:Type 2 diabetes mellitus with hemoglobin A1c goal of less than 7.0% ([facility]) Use up to 50 units per day in Omnipod. 4 Active Omnipod 5 G6 Intro (Gen 5) Kit Use as directed. Use to delivery insulin via insulin pump 1 Kit 5 4 Active Nystatin 996627 UNIT/GM External Powder (Nystop)Indications :Candidal intertrigo APPLY [...] in the morning. 90 Tablet 4 Active Levothyroxine Sodium 75 MCG Oral [...] a week. 9 mL 1 4 Active Gabapentin 300 MG Oral Capsule (Neurontin) Take 1 Capsule by mouth in the morning and 1 Capsule at noon and 1 Capsule before bedtime. 90 Capsule 2 4 Active Clopidogrel Bisulfate 75 MG Oral [...] 12/21/2016 Diabetes mellitus 01/05/2014 12/21/2016 LEYVA RESEARCH OTHER*[id number] 01/05/2014 12/21/2016 Axillary pain 11/03/2013 12/21/2016 Obesity, [...] Record [facility] V710 Clinical Trial*[id number] 12/22/2010 04/14/2011 S/P aortic valve replacement 12/01/2010 08/26/2011 S/P AORTIC VALVE REPLACEMENT - #25 pericardial Mc valve 11/01/2010 06/28/2018 Overview: Aortic valve replacement with #25 pericardial Mc valve, model 2800TFX, serial number [id number] (Dr. Walker) [facility] V710 Clinical Trial*[id number] 10/18/2010 11/21/2010 Type 2 diabetes mellitus wit [...] 06/07/2018,01/08/20 18,12/05/2017,06/15,10/27/2013,09/12/2013 Pneumococcal Conjugate Vacci ne, 20-valent (Fzzsykp24) 06/22/2023 Pneumococcal Polysaccharide PPV23 (Pneumovax) 01/02/2008 Seasonal [...] Miscellaneous Notes * Telephone Encounter - Ariana Foster, warehouse operations associate - 06/16/2024 10:50 AM EDT Please reroute Rx to [facility] [place] [address] [place] [address]. Signed [...] PM * Telephone Encounter - Paul Lopez, [facility] - 06/14/2024 10:06 AM EDTSigned Prescriptions: Disp [...] week.Authorizing Provider: DEON RAUSCH User: PAUL LOPEZ [id number] MG Oral Capsule (Neurontin) 90 Cap*2 Sig: [...] on gabapentin rx. Thank you, Paul Lopez, PharmD Clinical Pharmacist Centralized Clinical Pharmacy Services ([facility]) 06/14/24 10:03 AM [phone] * Telephone Encounter - Elisa Lombardi PHARM Tech - 06/13/2024 9:13 AM EDT Tried to contact pt to confirm pharmacy but pt didn't answer. Please reroute Rx to [facility] ([place] [place]. Pending Prescriptions: Disp Refills Atorvastatin Calcium [...] 06/19/2024 9:40 AM EDT Office Visit Pharmacy, [facility] 200 [facility] [place] [address] Pharmacist1, [facility] [address] [facility] [place] [address] 06/23/2024 9:00 AM EDT Office Visit Family Practice [facility] 132 [facility] [place] [address] Massimo Frias MD 132 [facility] [place] [address] 06/30/2024 10:00 AM EDT Office Visit Gastroenterology, [facility] 132 [facility] [place] [address] Arina Knapp PA-C [address] [place] [address] 07/31/2024 11:15 AM EST Office Visit Ophthalmology, [facility] 132 [facility] [place] [address] Ramsey Burnett, [address] [place] [address] 08/12/2024 9:20 AM EST Office Visit Family Practice [facility] 132 [facility] [place] [address] Deon Rausch MD [address] [place] [address] 11/03/2024 11:00 AM EST Office Visit Sleep Disorders Ctr [facility] 132 [facility] [place] [phone] Christina Birch DO [address] [facility] [place] [address] 11/04/2024 9:30 AM EST Office Visit Gastroenterology, [facility] 132 [facility] [place] [address] Tia Taylor CRNP [address] [facility] [place] [address] 11/27/2024 9:40 AM EST Office Visit Nephrology, [facility] 200 [facility] [place] [place] [address] Fidelina Baumann MD [address] [place] [address] Scheduled Procedures Name Priority Associated Diagnoses Date/Ti [...] Additional history exists CKD PHOS USE SMARTSET 78920 06/18/202405/26, 06/16/2023, 06/15/2023, Additional history exists HbA1c 08/01/2024 01/30/2024, 08/25, 07/31/2023, Additional history exists Diabetic Eye Exam 09/13/2024 09/13/2023, , 09/13/2023, Additional history exists B-12 09/18/2024 09/18/2023, 08/24, 2020, Additional history exists GFR 11/01/2024 05/01/2024, 12/23, 10/15/2023, Additional history exists Albumin/Creatinine Ratio 01/07/2025 024, 03/09/2023, 12/22/2022, Additional history exists CKD HGB USE SMARTSET 22495 01/07/202501/07, 01/08/2024, 10/15/2023, Additional history exists TSH [...] encounter Medical Devices Implanted Type Area Gastroenterology Teacher Device Identifier Shelf Expiration Date Model / Serial / Lot Cath Roselia Single Lumen - [id number] Implanted:Qty : 1 on 03/12/2008 at OR [facility] Left: Chest [facility] *DO NOT USE* 07/25/2012 21-4053-24 / / [id number] Sut Steel 6 M654g - [id number] Implanted:Qty : 1 on 11/01/2010 at OR [facility] N/A: Chest DO NOT USE M654G / / Sut Steel 6 M654g - [id number] Implanted:Qty : 1 on 11/01/2010 at OR [facility] N/A: Chest DO NOT USE M654G / / Valve Tarsha Aortic [id number] - [id number] Implanted:Qty : 1 on 11/01/2010 at OR [facility] N/A: Heart [employer] 05/20/2012 2800TFX-25 / / [id number] Description:[email or web address] Mesh Soft 91a94zi - [id number] Implanted:Qty : 1 on 10/10/2019 by Gigi Hendrickson MD at OR [facility] N/A: Abdomen CR BARD : DAVOL [id number] 05/21/2024 [id number] / / [id number] Lens 22.5 Sn60wf - [id number] - [id number] Implanted:Qty : 1 on 09/15/2020 by Cece Roland MD at [facility] Right: Eye IVA : SURGICAL [id number] 05/13/2025 SN60 WF.225 / [id number] / [id number] Lens 21.5 Sn60wf - [id number] - [id number] Implanted:Qty : 1 on 12/19/2023 by Ramsey Burnett DO at OR [facility] Left: Eye IVA : SURGICAL 12/03/2024 SN60WF.2 15 / [id number] / documented as of this encounter [...] edema, with long-term current use of insulin ([facility]) Type 2 diabetes mellitus with stage 3a chronic kidney disease, with long-term current use of insulin ([facility]) documented in this encounter Advance [...] by patient or by statute hierarchy) [facility] Health Cider Press Operator resentative (appointed verbally by patient or by statute hierarchy) Care Teams Chemical Analytical Sampler Relationship Specialty Start Date End Date Deon Rausch MD [address] [place] [address] PCP - General Family Medicine 02/12/20 documented as of this encounter
--- OUTSIDE RECORDS SUMMARY | 2024-10-02 03:32 | External Medical Summary | Summary of Care ---
Author Name Unknown Organization [facility] Address [address] [place] [address] Phone [phone] Care Team Providers Care Harness Brusher Name Role Phone Deon Rausch MD Primary Care Provider [phone] [phone] Reason for Visit * Reason Onset Date Comments Medication Refill 06/17/2024 Encounter Details Date Type Department Care Team (Late st Contact Info) Description 06/17/2024 Refill Family Practice [facility] [address] [place] [address] Deon Rausch MD [address] [place] [address] Dizziness Allergies Active Allergy Reactions Criticality Noted [...] pump 1 Kit 5 4 Active Nystatin 284233 UNIT/GM External Powder (Nystop)Indications :Candidal intertrigo APPLY [...] the morning. 16 g 3 4 Active Fluticasone Propionate 50 MCG/ACT Nasal Suspension (Flonase)Indication s:Dizziness Administer 2 Sprays into each nostril in the morning. 16 g 3 4 06/17/20 24 Discontinu ed(Refill) documented as of this [...] 09/28/2020 Coronary artery disease invo lving [place] coronary artery of [place] heart without angina pectoris 12/16/2019 Last Assessment [...] 12/21/2016 Diabetes mellitus 01/05/2014 12/21/2016 LEYVA RESEARCH OTHER*[id number] 01/05/2014 12/21/2016 Axillary pain 11/03/2013 12/21/2016 Obesity, [...] 09/201008/26/2011 12/21/2016 FOLLOWING SURGERY, UNSPECIFI ED ([facility] 08/25/2011) 08/26/2011 12/21/2016 ADVANCE [...] Medical Record [facility] V710 Clinical Trial*[id number] 12/22/2010 04/14/2011 S/P aortic valve replacement 12/01/2010 08/26/2011 S/P AORTIC VALVE REPLACEMENT - #25 pericardial Hernandez valve 11/01/2010 06/28/2018 Overview: Aortic valve replacement with #25 pericardial Hernandez valve, model 2800TFX, serial number [id number] (Dr. Walker) [facility] V710 Clinical Trial*[id number] 10/18/2010 11/21/2010 Type 2 diabetes mellitus wit [...] 06/07/2018,01/08/20 18,12/05/2017,06/15,10/27/2013,09/12/2013 Pneumococcal Conjugate Vacci ne, 20-valent (Lvsersh63) 06/22/2023 Pneumococcal Polysaccharide PPV23 (Pneumovax) 01/02/2008 Seasonal [...] Telephone Encounter - Deon Rausch MD - 06/17/2024 9:46 AM EDTSigned Prescriptions: Disp Refills Fluticasone Propionate 50 MCG/ACT Nasal Bhatt*16 g 3 Sig: Administer 2 Sprays into each nostril in the morning. Authorizing Provider: DEON RAUSCH * Telephone Encounter - Rufina Sinha LPN - 06/17/2024 8:59 AM EDT Did you pend patient's preferred pharmacy and medication before forwarding?yes Pharmacy: [facility] [address] [facility] [address] [place] Pending Prescriptions: Disp Refills Fluticasone Propionate 50 MCG/ACT Nasal S*16 g 3 Sig: Administer 2 Sprays into each nostril in the morning. Last Visit: 06/05/2024 (in office), 09/12/2023 (telemedicine) Next Visit: 06/23/2024 If no future appointments scheduled, and last appointment is greater than a year ago, please schedule patient for a follow-up appointment Last date the medication was ordered: 02/07/2024 Is this request for a controlled substance?No [...] 06/19/2024 9:40 AM EDT Office Visit Pharmacy, [facility] [address] [place] [address] Pharmacist1, [facility] [address] [place] [address] 06/23/2024 9:00 AM EDT Office Visit Family Practice [facility] 132 [facility] [place] [address] Massimo Frias MD 132 [facility] [place] [address] 06/30/2024 10:00 AM EDT Office Visit Gastroenterology, [facility] 132 [facility] [place] [address] Arina Knapp PA-C [address] [place] [address] 07/31/2024 11:15 AM EST Office Visit Ophthalmology, [facility] 132 [facility] [place] [address] Ramsey Burnett, DO [address] [facility] [place] [address] 08/12/2024 9:20 AM EST Office Visit [facility] 132 [facility] [place] [address] Deon Rausch MD 132 [facility] [place] [address] 11/03/2024 11:00 AM EST Office Visit Sleep Disorders Ctr [facility] 132 [facility] [place] [id number] Christina Birch, DO 132 [place] [address] 11/04/2024 9:30 AM EST Office Visit Gastroenterology, [facility] 132 [facility] [place] [address] Tia Taylor CRNP 132 [facility] [place] [address] 11/27/2024 9:40 AM EST Office Visit Nephrology, [facility] 200 [place] [address] Fidelina Baumann MD 200 [place] [address] Scheduled Procedures Name Priority Associated Diagnoses Date/Ti [...] Additional history exists CKD PHOS USE SMARTSET 69533 06/18/202405/26, 06/16/2023, 06/15/2023, Additional history exists HbA1c 08/01/2024 01/30/2024, 08/25, 07/31/2023, Additional history exists Diabetic Eye Exam 09/13/2024 09/13/2023, , 09/13/2023, Additional history exists B-12 09/18/2024 09/18/2023, 08/24, 2020, Additional history exists GFR 11/01/2024 05/01/2024, 12/23, 10/15/2023, Additional history exists Albumin/Creatinine Ratio 01/07/2025 024, 03/09/2023, 12/22/2022, Additional history exists CKD HGB USE SMARTSET 89328 01/07/202501/07, 01/08/2024, 10/15/2023, Additional history exists TSH [...] encounter Medical Devices Implanted Type Area Director General Device Identifier Shelf Expiration Date Model / Serial / Lot Cath Roselia Single Lumen - [id number] Implanted:Qty : 1 on 03/12/2008 at OR [facility] Left: Chest [facility] *DO NOT USE* 07/25/2012 21-4053-24 / / [id number] Sut Steel 6 M654g - [id number] Implanted:Qty : 1 on 11/01/2010 at OR [facility] N/A: Chest DO NOT USE M654G / / Sut Steel 6 M654g - [id number] Implanted:Qty : 1 on 11/01/2010 at OR [facility] N/A: Chest DO NOT USE M654G / / Valve Tarsha Aortic [id number] - [id number] Implanted:Qty : 1 on 11/01/2010 at OR [facility] N/A: Heart CANDDi DANIEL 05/20/2012 2800TFX-25 / / [id number] Description:[email or web address] Mesh Soft [id number] - [id number] Implanted:Qty : 1 on 10/10/2019 by Gigi Hendrickson MD at [place] [facility] N/A: Abdomen CR BARD : DAVOL [id number] 05/21/2024 [id number] / / [id number] Lens 22.5 Sn60wf - [id number] - [id number] Implanted:Qty : 1 on 09/15/2020 by Renaldo Cook, Cece Acosta MD at OR [facility] Right: Eye IVA : SURGICAL [id number] 05/13/2025 SN60 WF.225 / [id number] / [id number] Lens 21.5 Sn60wf - [id number] - [id number] Implanted:Qty : 1 on 12/19/2023 by Ramsey Burnett DO at OR [facility] Left: Eye IVA : SURGICAL 12/03/2024 SN60WF.2 15 / [id number] [id number] / documented as of this encounter Visit Diagnoses Diagnosis Dizziness Dizziness and giddiness documented in this encounter Advance Directives * [...] statute hierarchy) Jovita Ovalle Adult Child Health Warehouse Helper resentative (appointed verbally by patient or by statute hierarchy) Care Teams Harness Brusher Relationship Specialty Start Date End Date Deon Rausch MD [address] [place] [address] PCP - General Family Medicine 02/12/20 documented as of this encounter
--- OUTSIDE RECORDS SUMMARY | 2024-10-02 03:33 | External Medical Summary | Summary of Care ---
Author Name Unknown Organization [facility] Address [address] [place] [address] Phone [phone] Care Team Providers Care Casework Manager Name Role Phone Gregory Rausch MD Primary Care Provider [phone] Reason for Visit * Reason Onset Date Comments Appointment 06/11/2024 Encounter Details Date Type Department Care Team (Late st Contact Info) Description 06/11/2024 [facility] [address] [facility] [place] [address] Zurdo Christina, PRABHA [address] [place] [address] Appointment Allergies Active Allergy Reactions Criticality Noted Date Comments Adhesive Tape 07/02/2017 Can tolerate band-aids Glycerin Other (Please comment) 03/12/2008 Topical agents with glycein-burning & itching Lactose 12/09/2014 Dairy - gas Lisinopril Cough 01/21/2010 Monosodium Glutamate Edema Other 03/12/2008 Hands and feet Penicillins Rash 11/14/2007 documented as of this encounter (statuses as of 06/12/2024) Medications Medication Sig Dispensed Refills Start Date [...] pump 1 Kit 5 04/10/2024 Active Nystatin 075883 UNIT/GM External Powder (Nystop)Indications: Candidal intertrigo APPLY [...] Tablet before bedtime. 28 Tablet 05/02/2024 Active Skerszzsfv-Poubdsq-F affeine 50-325-40 MG Oral Capsule (Fiorinal)Indication s:Acute [...] as of this encounter (statuses as of 06/12/2024) Active Problems Problem Noted Date Diagnosed Date [...] eye 09/28/2020 Coronary artery disease invo lving [place] coronary artery of [place] heart without angina pectoris 12/16/2019 Last [...] as of this encounter (statuses as of 06/12/2024) Resolved Problems Problem Noted Date Diagnosed Date [...] 12/21/2016 Diabetes mellitus 01/05/2014 12/21/2016 LEYVA RESEARCH OTHER*[id number] 01/05/2014 12/21/2016 Axillary pain 11/03/2013 12/21/2016 Obesity, [...] be scanned into Electronic Medical Record [facility] V710 Clinical Trial*[id number] 12/22/2010 04/14/2011 S/P aortic valve replacement 12/01/2010 08/26/2011 S/P AORTIC VALVE REPLACEMENT - #25 pericardial Mc valve 11/01/2010 06/28/2018 Overview: Aortic valve replacement with #25 pericardial Mc valve, model 2800TFX, serial number [id number] (Dr. Walker) [facility] V710 Clinical Trial*[id number] 10/18/2010 11/21/2010 Type 2 diabetes mellitus wit [...] as of this encounter (statuses as of 06/12/2024) Immunizations Name Administration Dates Next Due COVID-19 mRNA, LNP-s, No Pre serve, 2-Dose Series (Moderna) 10/25/2021,02/16/2021,01/18/2021 HEP A - Hepatitis A (Adult > 18 yrs) 06/07/2018, 12/05/2017 Hepatitis B, 20+ yrs 06/07/2018,01/08/20 18,12/05/2017,06/15,10/27/2013,09/12/2013 Pneumococcal Conjugate Vacci ne, 20-valent (Bmxuyjs54) 06/22/2023 Pneumococcal Polysaccharide PPV23 (Pneumovax) 01/02/2008 Seasonal [...] Telephone Encounter - Zurdo Christina RN - 06/11/2024 6:16 PM EDT Please schedule pt for CAS[facility]E phone calls to follow up on diarrhea, abdominal pain, cramping and whether she has finished Dificid 10 day course. Thanks! documented in this encounter Plan of Treatment Upcoming Encounters Date Type Department Care Team (Late st Contact Info) Description 06/19/2024 9:40 AM EDT Office Visit Pharmacy, [facility] [place] [address] Pharmacist1, [facility] [place] [address] 06/23/2024 9:00 AM EDT Office Visit Family Practice [facility] [address] [place] [address] Massimo Frias MD 132 [facility] [place] [address] 06/30/2024 10:00 AM EDT Office Visit Gastroenterology, [facility] [address] [place] [address] Arina Knapp PA-C [address] [place], [place] [address] [place] [address] 08/12/2024 9:20 AM EST Office Visit Family Practice [facility] 132 [facility] [place] [address] Gregory Rausch MD [address] [place] [address] 11/03/2024 11:00 AM EST Office Visit Sleep Disorders Ctr [facility] 132 [facility] [place] [phone] Christina Birch DO 132 [facility] [place] [address] 11/04/2024 9:30 AM EST Office Visit Gastroenterology, [facility] 132 [facility] [place] [address] Tia Taylor CRNP [address] [place] [address] 11/27/2024 9:40 AM EST Office Visit Nephrology, [facility] 200 [facility] [place] [address] Fidelina Baumann MD [address] [place] [address] Scheduled Procedures Name Priority Associated Diagnoses Date/Ti [...] Additional history exists CKD PHOS USE SMARTSET 77099 06/18/202405/26, 06/16/2023, 06/15/2023, Additional history exists HbA1c 08/01/2024 01/30/2024, 08/25, 07/31/2023, Additional history exists Diabetic Eye Exam 09/13/2024 09/13/2023, , 09/13/2023, Additional history exists B-12 09/18/2024 09/18/2023, 08/24, 2020, Additional history exists GFR 11/01/2024 05/01/2024, 12/23, 10/15/2023, Additional history exists Albumin/Creatinine Ratio 01/07/2025 024, 03/09/2023, 12/22/2022, Additional history exists CKD HGB USE SMARTSET 05283 01/07/202501/07, 01/08/2024, 10/15/2023, Additional history exists TSH [...] this encounter Medical Devices Implanted Type Area Fertilizer Mixer Device Identifier Shelf Expiration Date Model / Serial / Lot Cath Roselia Single Lumen - [id number] Implanted:Qty : 1 on 03/12/2008 at [facility] Left: Chest [facility] *DO NOT USE* 07/25/2012 21-4053-24 / / [id number] Sut Steel 6 M654g - [id number] Implanted:Qty : 1 on 11/01/2010 at OR [facility] N/A: Chest DO NOT USE M654G / / Sut Steel 6 M654g - [id number] Implanted:Qty : 1 on 11/01/2010 at OR [facility] N/A: Chest DO NOT USE M654G / / Valve Tarsha Aortic [id number] - [id number] Implanted:Qty : 1 on 11/01/2010 at OR [facility] N/A: Heart MC [employer]ESCIENCES DANIEL 05/20/2012 2800TFX-25 / / [id number] Description:[email or web address] Mesh Soft 10g78so - [id number] Implanted:Qty : 1 on 10/10/2019 by Gigi Hendrickson MD at [place] [facility] N/A: Abdomen CR BARD : DAVOL [id number] 05/21/2024 [id number] / / [id number] Lens 22.5 Sn60wf - [id number] - [id number] Implanted:Qty : 1 on 09/15/2020 by Cece Roland MD at OR [facility] Right: Eye IVA : SURGICAL [id number] 05/13/2025 SN60 WF.225 / [id number] / [id number] Lens 21.5 Sn60wf - [id number] - [id number] Implanted:Qty : 1 on 12/19/2023 by Ramsey Burnett DO at OR [facility] Left: Eye IVA : SURGICAL 12/03/2024 SN60WF.2 15 / [id number] / documented as of this encounter [...] statute hierarchy) Jovita Ovalle Adult Child Health Medical Coding Specialist resentative (appointed verbally by patient or by statute hierarchy) [email or web address] Care Teams Casework Manager Relationship Specialty Start Date End Date Gregory Rausch MD [address] [place] [address] PCP - General Family Medicine 02/12/20 documented as of this encounter
--- OUTSIDE RECORDS SUMMARY | 2024-10-02 03:33 | External Medical Summary | Summary of Care ---
Author Name Unknown Organization [facility] Address [address] [place] [address] Phone [phone] Care Team Providers Care Sample Collector Name Role Phone Gregory Rausch MD Primary Care Provider +1 [phone] Reason for Visit * Reason Onset Date Comments [facility]: Maintenance 06/11/2024 Encounter Details Date Type Department Care Team (Late st Contact Info) Description 06/11/2024 Telephone [facility] [place] [address] [place] [address] Maryan Mckeon LPN [address] [place], [place] [phone] [facility]: Maintenance Allergies Active Allergy Reactions Criticality Noted Date Comments Adhesive Tape 07/02/2017 Can tolerate band-aids Glycerin Other (Please comment) 03/12/2008 Topical agents with glycein-burning & itching Lactose 12/09/2014 Dairy - gas Lisinopril Cough 01/21/2010 Monosodium Glutamate Edema Other 03/12/2008 Hands and feet Penicillins Rash 11/14/2007 documented as of this encounter (statuses as of 06/11/2024) Medications Medication Sig Dispensed Refills Start Date [...] (Glucose)Indications :DM type 2, not at goal ([facility] [...] pump 1 Kit 5 04/10/2024 Active Nystatin 827545 UNIT/GM External Powder (Nystop)Indications: Candidal intertrigo APPLY [...] Tablet before bedtime. 28 Tablet 05/02/2024 Active Pdpzosjdzf-Mhbzjuz-V affeine 50-325-40 MG Oral Capsule (Fiorinal)Indication s:Acute [...] as of this encounter (statuses as of 06/11/2024) Active Problems Problem Noted Date Diagnosed Date [...] as of this encounter (statuses as of 06/11/2024) Resolved Problems Problem Noted Date Diagnosed Date [...] 12/21/2016 Diabetes mellitus 01/05/2014 12/21/2016 LEYVA RESEARCH OTHER*[id number] 01/05/2014 12/21/2016 Axillary pain 11/03/2013 12/21/2016 Obesity, [...] to be scanned into Electronic Medical Record [facility] V710 Clinical Trial*[id number] 12/22/2010 04/14/2011 S/P aortic valve replacement 12/01/2010 08/26/2011 S/P AORTIC VALVE REPLACEMENT - #25 pericardial Mc valve 11/01/2010 06/28/2018 Overview: Aortic valve replacement with #25 pericardial Mc valve, model 2800TFX, serial number [id number] (Dr. Walker) [facility] V710 Clinical Trial*[id number] 10/18/2010 11/21/2010 Type 2 diabetes mellitus wit [...] as of this encounter (statuses as of 06/11/2024) Immunizations Name Administration Dates Next Due COVID-19 mRNA, LNP-s, No Pre serve, 2-Dose Series (Moderna) 10/25/2021,02/16/2021,01/18/2021 HEP A - Hepatitis A (Adult > 18 yrs) 06/07/2018, 12/05/2017 Hepatitis B, 20+ yrs 06/07/2018,01/08/20 18,12/05/2017,06/15,10/27/2013,09/12/2013 Pneumococcal Conjugate Vacci ne, 20-valent (Oygrwsf52) 06/22/2023 Pneumococcal Polysaccharide PPV23 (Pneumovax) 01/02/2008 Seasonal [...] encounter Miscellaneous Notes * Telephone Encounter - Maryan Mckeon LPN - 06/11/2024 9:31 AM EDT Pt d/c from [facility] 05/10. Already has an appt today, changed to [facility] in notes. [facility] 06/11/2024,9:31 AM documented in this encounter Plan of Treatment Upcoming Encounters Date Type Department Care Team (Late st Contact Info) Description 06/11/2024 2:30 PM EDT [facility] Visit [facility] [address] [place] [address] Zurdo Christina RN [address] [place] [address] 06/13/2024 11:00 AM EDT Office Visit Family Practice [facility] [address] [place] [address] Gregory Rausch MD [address] [place] [address] 06/19/2024 9:40 AM EDT Office Visit Pharmacy, [facility] [address] [facility] [place] [address] Pharmacist1, [facility] [place] [address] 06/30/2024 10:00 AM EDT Office Visit Gastroenterology, [facility] 132 [facility] [place] [address] Arina Knapp PA-C [address] [place] [address] 08/12/2024 9:20 AM EST Office Visit Family Practice [facility] [address] [place] [address] Gregory Rausch MD [address] [place] [address] 11/03/2024 11:00 AM EST Office Visit [facility] Disorders [facility] [phone] Christina Birch DO 132 [place] [address] 11/04/2024 9:30 AM EST Office Visit Gastroenterology, [facility] 132 [facility] [place] [address] Tia Taylor CRNP [address] [place] [address] 11/27/2024 9:40 AM EST Office Visit Nephrology, [facility] [address] [facility] [place] [place] [address] Fidelina Baumann MD 200 [place] [address] Scheduled Procedures Name Priority Associated Diagnoses Date/Ti [...] Additional history exists CKD PHOS USE SMARTSET 11373 06/18/202405/26, 06/16/2023, 06/15/2023, Additional history exists HbA1c 08/01/2024 01/30/2024, 08/25, 07/31/2023, Additional history exists Diabetic Eye Exam 09/13/2024 09/13/2023, , 09/13/2023, Additional history exists B-12 09/18/2024 09/18/2023, 08/24, 2020, Additional history exists GFR 11/01/2024 05/01/2024, 12/23, 10/15/2023, Additional history exists Albumin/Creatinine Ratio 01/07/2025 024, 03/09/2023, 12/22/2022, Additional history exists CKD HGB USE SMARTSET 36837 01/07/202501/07, 01/08/2024, 10/15/2023, Additional history exists TSH [...] this encounter Medical Devices Implanted Type Area Wildlife Rehabilitator Device Identifier Shelf Expiration Date Model / Serial / Lot Cath Roselia Single Lumen - [id number] Implanted:Qty : 1 on 03/12/2008 at OR [facility] Left: Chest [facility] *DO NOT USE* 07/25/2012 21-4053-24 / / [id number] Sut Steel 6 M654g - [id number] Implanted:Qty : 1 on 11/01/2010 at OR [facility] N/A: Chest DO NOT USE M654G / / Sut Steel 6 M654g - [id number] Implanted:Qty : 1 on 11/01/2010 at OR [facility] N/A: Chest DO NOT USE M654G / / Valve Tarsha Aortic [id number] - [id number] Implanted:Qty : 1 on 11/01/2010 at OR [facility] N/A: Heart MC [employer] DANIEL 05/20/2012 2800TFX-25 / / [id number] Description:[email or web address] Mesh Soft [id number] - [id number] Implanted:Qty : 1 on 10/10/2019 by Gigi Hendrickson MD at OR [facility] N/A: Abdomen CR BARD : DAVOL [id number] 05/21/2024 [id number] / / [id number] Lens 22.5 Sn60wf - [id number] - [id number] Implanted:Qty : 1 on 09/15/2020 by Cece Roland MD at OR [facility] Right: Eye IVA : SURGICAL [id number] 05/13/2025 SN60 WF.225 / [id number] / [id number] Lens 21.5 Sn60wf - [id number] - [id number] Implanted:Qty : 1 on 12/19/2023 by Ramsey Burnett DO at OR [facility] Left: Eye IVA : SURGICAL 12/03/2024 SN60WF.2 15 / [id number] / documented as of this encounter [...] statute hierarchy) Jovita Ovalle Adult Child Health Naval Architect resentative (appointed verbally by patient or by statute hierarchy) [email or web address] Care Teams Sample Collector Relationship Specialty Start Date End Date Gregory Rausch MD [address] [place] [address] PCP - General Family Medicine 02/12/20 documented as of this encounter
--- OUTSIDE RECORDS SUMMARY | 2024-10-02 03:33 | External Medical Summary | Summary of Care ---
Author Name Unknown Organization [facility] Address [address] [place] [address] Phone [phone] Care Team Providers Care Manager Data Warehousing Name Role Phone Deon Rausch MD Primary Care Provider [phone] Reason for Visit * Reason Onset Date Comments Medication Refill 06/13/2024 Encounter Details Date Type Department Care Team (Late st Contact Info) Description 06/13/[address] [facility] [address] [place] [address] Deon Rausch MD 132 [facility] [place] [address] Heart failure, systolic, due to idiopathic cardiomyopathy (HCC); S/P AORTIC VALVE REPLACEMENT - #25 pericardial Hernandez valve; HTN, goal below 140/80; Dyslipidemia, goal LDL below 70; Hypothyroidism; Muscle tension headache; Type 2 diabetes mellitus with hemoglobin A1c goal of less than 7.0% ([facility]); Type 2 diabetes mellitus with diabetic mononeuropathy, with long-term current use of insulin ([facility]); Type 2 diabetes mellitus with both eyes affected by mild nonproliferative retinopathy and macular edema, with long-term current use of insulin ([facility]); Type 2 diabetes mellitus with stage 3a chronic kidney disease, with long-term current use of insulin ([facility]) Allergies Active Allergy Reactions Criticality Noted Date Comments Adhesive Tape 07/02/2017 Can tolerate band-aids Glycerin Other (Please comment) 03/12/2008 Topical agents with glycein-burning & itching Lactose 12/09/2014 Dairy - gas Lisinopril Cough 01/21/2010 Monosodium Glutamate Edema Other 03/12/2008 Hands and feet Penicillins Rash 11/14/2007 documented as of this encounter (statuses as of 06/14/2024) Medications Medication Sig Dispensed Refills Start Date [...] s:DM type 2, not at goal ([facility] [...] of insulin ([facility]) Inject 36 Units under the [...] pump 1 Kit 5 4 Active Nystatin 664311 UNIT/GM External Powder (Nystop)Indications :Candidal intertrigo APPLY [...] 5 4 06/14/20 24 Discontinu ed(Transfe rred) documented as of this encounter (statuses as of 06/14/2024) Active Problems Problem Noted Date Diagnosed Date [...] as of this encounter (statuses as of 06/14/2024) Resolved Problems Problem Noted Date Diagnosed Date [...] 12/21/2016 Diabetes mellitus 01/05/2014 12/21/2016 LEYVA RESEARCH OTHER*[id number] 01/05/2014 12/21/2016 Axillary pain 11/03/2013 12/21/2016 Obesity, [...] scanned into Electronic Medical Record [facility] V710 Clinical Trial*[id number] 12/22/2010 04/14/2011 S/P aortic valve replacement 12/01/2010 08/26/2011 S/P AORTIC VALVE REPLACEMENT - #25 pericardial Hernandez valve 11/01/2010 06/28/2018 Overview: Aortic valve replacement with #25 pericardial Hernandez valve, model 2800TFX, serial number [id number] (Dr. Walker) [facility] V710 Clinical Trial*[id number] 10/18/2010 11/21/2010 Type 2 diabetes mellitus wit [...] as of this encounter (statuses as of 06/14/2024) Immunizations Name Administration Dates Next Due COVID-19 mRNA, LNP-s, No Pre serve, 2-Dose Series (Moderna) 10/25/2021,02/16/2021,01/18/2021 HEP A - Hepatitis A (Adult > 18 yrs) 06/07/2018, 12/05/2017 Hepatitis B, 20+ yrs 06/07/2018,01/08/20 18,12/05/2017,06/15,10/27/2013,09/12/2013 Pneumococcal Conjugate Vacci ne, 20-valent ([id number]) 06/22/2023 Pneumococcal Polysaccharide PPV23 (Pneumovax) 01/02/2008 Seasonal [...] encounter Miscellaneous Notes * Telephone Encounter - Paul Lopez, [facility] - 06/14/2024 10:06 AM EDTSigned Prescriptions: Disp Refills Atorvastatin Calcium 40 MG Oral Tablet (Li*90 Tab*0 Sig: Take 1tablet by mouth daily to prevent heart attack/stroke, [...] week.Authorizing Provider: DEON RAUSCH User: PAUL LOPEZ [id number] MG Oral Capsule (Neurontin) 90 Cap*2 Sig: Take 1 Capsule by mouth in the morning and 1 Capsule at noon and 1 Capsule before bedtime.Authorizing Provider: DEON RAUSCH User: PAUL LOPEZ * Telephone Encounter - Paul Lopez [facility] - 06/14/2024 10:03 AM EDT Rerouted remaining refills to new pharmacy as requested. PC to [facility] to cancel remaining refills on gabapentin rx. Thank you, Paul Lopez, [place] Clinical Pharmacist [facility] 06/14/24 10:03 AM [phone] * Telephone Encounter - Elisa Lombardi PHARM Tech - 06/13/2024 9:13 AM EDT Tried to contact pt to confirm pharmacy but pt didn't answer. Please reroute Rx to [facility]. Pending Prescriptions: Disp Refills Atorvastatin [...] Visit Pharmacy, [place] [address] [place] [address] Pharmacist1, [facility] [address] [facility], [facility] [place] [address] 06/23/2024 9:00 AM EDT Office Visit Family Practice [facility] 132 [facility] [place] [address] Massimo Frias MD 132 [facility] [place] [address] 06/30/2024 10:00 AM EDT Office Visit Gastroenterology, [facility] 132 [facility] [place] [address] Arina Knapp PA-C [address] [facility] [place] [address] 07/31/2024 11:15 AM EST Office Visit Ophthalmology, [facility] 132 [facility] [place] [address] Ramsey Burnett, DO [address] [facility] [address] 08/12/2024 9:20 AM EST Office Visit [facility] [address] [facility] [place] [address] Deon Rausch MD 132 [facility] [place] [address] 11/03/2024 11:00 AM EST Office Visit Sleep Disorders Ctr [facility] 132 [facility] [place] [id number] Christina Birch, 132 [facility] [place] [address] 11/04/2024 9:30 AM EST Office Visit Gastroenterology, [facility] 132 [facility] [place] [address] Tia Taylor CRNP 132 [facility] [place] [address] 11/27/2024 9:40 AM EST Office Visit Nephrology, [facility] [place] 200 [facility] [place] [address] Fidelina Baumann MD [address] [facility] [place] [address] Scheduled Procedures Name Priority Associated Diagnoses Date/Ti [...] Additional history exists CKD PHOS USE SMARTSET 65680 06/18/202405/26, 06/16/2023, 06/15/2023, Additional history exists HbA1c 08/01/2024 01/30/2024, 08/25, 07/31/2023, Additional history exists Diabetic Eye Exam 09/13/2024 09/13/2023, , 09/13/2023, Additional history exists B-12 09/18/2024 09/18/2023, 08/24, 2020, Additional history exists GFR 11/01/2024 05/01/2024, 12/23, 10/15/2023, Additional history exists Albumin/Creatinine Ratio 01/07/2025 024, 03/09/2023, 12/22/2022, Additional history exists CKD HGB USE SMARTSET 07791 01/07/202501/07, 01/08/2024, 10/15/2023, Additional history exists TSH [...] this encounter Medical Devices Implanted Type Area Paradichlorobenzene Tender Device Identifier Shelf Expiration Date Model / Serial / Lot Cath Roselia Single Lumen - [id number] Implanted:Qty : 1 on 03/12/2008 at OR [facility] Left: Chest [facility] *DO NOT USE* 07/25/2012 21-4053-24 / / [id number] Sut Steel 6 M654g - [id number] Implanted:Qty : 1 on 11/01/2010 at OR [facility] N/A: Chest DO NOT USE M654G / / Sut Steel 6 M654g - [id number] Implanted:Qty : 1 on 11/01/2010 at OR [facility] N/A: Chest DO NOT USE M654G / / Valve Tarsha Aortic [id number] - [id number] Implanted:Qty : 1 on 11/01/2010 at OR [facility] N/A: Heart [employer] DANIEL 05/20/2012 2800TFX-25 / / [id number] Description:[email or web address] Mesh Soft 64v60lj - [id number] Implanted:Qty : 1 on 10/10/2019 by Gigi Hendrickson MD at [place] [facility] N/A: Abdomen CR BARD : DAVOL [id number] 05/21/2024 [id number] / / [id number] Lens 22.5 Sn60wf - [id number] - [id number] Implanted:Qty : 1 on 09/15/2020 by Renaldo Cook, Cece Acosta MD at [facility] Right: Eye IVA : SURGICAL [id number] 05/13/2025 SN60 WF.225 / [id number] / [id number] Lens 21.5 Sn60wf - [id number] - [id number] Implanted:Qty : 1 on 12/19/2023 by Ramsey Burnett DO at OR [facility] Left: Eye IVA : SURGICAL 12/03/2024 SN60WF.2 15 / [id number] / documented as of this encounter Visit Diagnoses Diagnosis Heart failure, systolic, due to idiopathic cardiomyopathy (HCC) Unspecified systolic heart failure S/P AORTIC VALVE REPLACEMENT - #25 pericardial Hernandez valve Heart valve replaced by other means [...] statute hierarchy) Jovita Ovalle Adult Child Health Regional Guide resentative (appointed verbally by patient or by statute hierarchy) Care Teams Manager Data Warehousing Relationship Specialty Start Date End Date Deon Rausch MD [address] [place] [address] PCP - General Family Medicine 02/12/20 documented as of this encounter
--- OUTSIDE RECORDS SUMMARY | 2024-10-02 03:33 | External Medical Summary | Summary of Care ---
Author Name Unknown Organization [facility] Address [address] [place] [address] Phone [phone] Care Team Providers Care Concreter Name Role Phone Gregory Rausch MD Primary Care Provider [phone] Encounter Details Date Type Department Care Team (Late st Contact Info) Description 06/11/2024 2:30 PM EDT Home Visit [facility] at [facility] 132 [facility] [place] [address] Zurdo Christina, RN 132 [facility] [place] [address] Allergies Active Allergy Reactions Criticality Noted Date [...] Capsules by mouth in the morning. Active SwapferitTouch Verio In Vitro Strip (Glucose Blood) Use [...] pump 1 Kit 5 04/10/2024 Active Nystatin 040897 UNIT/GM External Powder (Nystop)Indications: Candidal intertrigo APPLY [...] Tablet before bedtime. 28 Tablet 05/02/2024 Active Xadnyyvtew-Liqjaxl-N affeine 50-325-40 MG Oral Capsule (Fiorinal)Indication s:Acute [...] as doing housework, yard work or shopping ([employer] CLASS II) Diagnostic Review: Recent [...] 12/21/2016 Diabetes mellitus 01/05/2014 12/21/2016 LEYVA RESEARCH OTHER*[id number] 01/05/2014 12/21/2016 Axillary pain 11/03/2013 12/21/2016 Obesity, [...] [facility] V710 Clinical Trial*[id number] 12/22/2010 04/14/2011 S/P aortic valve replacement 12/01/2010 08/26/2011 S/P AORTIC VALVE REPLACEMENT - #25 pericardial Mc valve 11/01/2010 06/28/2018 Overview: Aortic valve replacement with #25 pericardial Mc valve, model 2800TFX, serial number [id number] (Dr. Walker) [facility] V710 Clinical Trial*[id number] 10/18/2010 11/21/2010 Type 2 diabetes mellitus wit [...] 06/07/2018,01/08/20 18,12/05/2017,06/15,10/27/2013,09/12/2013 Pneumococcal Conjugate Vacci ne, 20-valent (Onvuxik00) 06/22/2023 Pneumococcal Polysaccharide PPV23 (Pneumovax) 01/02/2008 Seasonal [...] Sign Reading Time Taken Comments Blood Pressure 112/68 06/11/2024 2:03 PM EDT Pulse 84 06/11/2024 2:03 PM EDT Temperature 37.1 C (98.8 F) 06/11/2024 2:03 PM ED T Respiratory Rate 18 06/11/2024 2:03 PM EDT Oxygen Saturation 95% 06/11/2024 2:03 PM EDT Inhaled Oxygen Concentration - - [...] this encounter Progress Notes * Zurdo Christina, RN - 06/11/2024 1:33 PM EDT Current Concerns: Situation: Pt seen today by [facility] reed repairer for routine follow-up visit. 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 Assessment: Pt hospitalized at [facility] from 06/05/24-06/10/24 for diarrhea and worsening abdominal pain x 10 days C diff negative Pt discharged to home on 06/10/24 with prescription for Dificid 10 day course Pt just picked up Dificid today, took first dose at time of this RN visit Pt reports since being home from hospital last evening, has had 3 formed stools Pt denies abdominal pain, tenderness, cramping Pt reports that she is feeling well overall Pt has caregiver Stephanie Mon- [phone] Caregiver is present at time of visit, reports pt has been "good" today Has Dexcom Reports BS have been "In 180s" since return home from hospital Physical Exam: Physical Exam Cardiovascular: Rate and Rhythm: Normal rate and regular rhythm. Pulmonary: Effort: Pulmonary effort is normal. Breath sounds: Normal breath sounds. Skin: General: Skin is warm and dry. Capillary Refill: Capillary refill takes 2 to 3 seconds. Neurological: General: No focal deficit present. Mental Status: She is alert. Mental status is at baseline. Psychiatric: Mood and Affect: Mood normal. Behavior: Behavior normal. Review of Systems: Review of Systems Constitutional: Negative. HENT: Negative. Respiratory: Negative. Cardiovascular: Negative. Gastrointestinal: Negative. Negative for abdominal pain, blood in stool, constipation and diarrhea. Genitourinary: Negative. Negative for difficulty urinating and frequency. Musculoskeletal: Positive for gait problem. Skin: Negative. Psychiatric/Behavioral: Negative. Care Plan Goal Progress: Patient will report and or demonstrate minimal pain. (Progressing) Start: 06/11/24 Expected End: 07/18/24 Patient will achieve & maintain fluid & electrolyte balance. (Progressing) Start: 06/11/24 Expected End: 07/18/24 Patient's bowels habits will be maintained. (Progressing) Start: 06/11/24 Expected End: 07/18/24 Orders Placed: No orders of the defined types were placed in this encounter. Care Gaps: Care Gaps Care gaps closed this contact:: Education (06/11/241812) Type of education: Clinical/disease (06/11/241812) documented in this encounter Plan of Treatment Upcoming Encounters Date Type Department Care Team (Late st Contact Info) Description 06/13/2024 11:00 AM EDT Office Visit Family [facility] [address] [place] [address] Gregory Rausch MD [address] [place] [address] 06/19/2024 9:40 AM EDT Office Visit Pharmacy, [facility] 200 [facility] [place] [address] Pharmacist1, [facility] [address] [facility] [address] 06/30/2024 10:00 AM EDT Office Visit Gastroenterology, [facility] 132 [place] [address] Arina Knapp PA-C [address] [place] [address] 08/12/2024 9:20 AM EST Office Visit Family Practice [facility] [address] Gregory [facility]ausch MD [facility] [place] [address] 11/03/2024 11:00 AM EST Office Visit Sleep Disorders [facility] [place] [phone] Christina Birch DO 132 [place] [address] 11/04/2024 9:30 AM EST Office Visit Gastroenterology, [facility] 132 [facility] [place] [address] Tia Taylor CRNP [facility] [address] 11/27/2024 9:40 AM EST Office Visit Nephrology, [facility] [place] [address] Fidelina Baumann MD 200 [facility] [place] [address] Scheduled Procedures Name Priority Associated Diagnoses Date/Ti [...] Additional history exists CKD PHOS USE SMARTSET 92724 06/18/202405/26, 06/16/2023, 06/15/2023, Additional history exists HbA1c 08/01/2024 01/30/2024, 08/25, 07/31/2023, Additional history exists Diabetic Eye Exam 09/13/2024 09/13/2023, , 09/13/2023, Additional history exists B-12 09/18/2024 09/18/2023, 08/24, 2020, Additional history exists GFR 11/01/2024 05/01/2024, 12/23, 10/15/2023, Additional history exists Albumin/Creatinine Ratio 01/07/2025 024, 03/09/2023, 12/22/2022, Additional history exists CKD HGB USE SMARTSET 76729 01/07/202501/07, 01/08/2024, 10/15/2023, Additional history exists TSH [...] this encounter Medical Devices Implanted Type Area Radar Mechanic Device Identifier Shelf Expiration Date Model / Serial / Lot Cath Roselia Single Lumen - [id number] Implanted:Qty : 1 on 03/12/2008 at [facility] Left: Chest [facility] *DO NOT USE* 07/25/2012 21-4053-24 / / [id number] Sut Steel 6 M654g - [id number] Implanted:Qty : 1 on 11/01/2010 at OR [facility] N/A: Chest DO NOT USE M654G / / Sut Steel 6 M654g - [id number] Implanted:Qty : 1 on 11/01/2010 at OR [facility] N/A: Chest DO NOT USE M654G / / Valve Tarsha Aortic [id number] - [id number] Implanted:Qty : 1 on 11/01/2010 at OR [facility] N/A: Heart [employer] DANIEL 05/20/2012 2800TFX-25 / / [id number] Description:[email or web address] Mesh Soft 86v38ze - [id number] Implanted:Qty : 1 on 10/10/2019 by Gigi Hendrickson MD at [facility] N/A: Abdomen CR BARD : DAVOL [id number] 05/21/2024 [id number] / / [id number] Lens 22.5 Sn60wf - [id number] - [id number] Implanted:Qty : 1 on 09/15/2020 by Cece Roland MD at [facility] Right: Eye IVA : SURGICAL [id number] 05/13/2025 SN60 WF.225 / [id number] / [id number] Lens 21.5 Sn60wf - [id number] - [id number] Implanted:Qty : 1 on 12/19/2023 by Ramsey Burnett DO at OR [facility] Left: Eye IVA : SURGICAL 12/03/2024 SN60WF.2 15 / [id number] / documented as of this encounter [...] statute hierarchy) Jovita Ovalle Adult Child Health Outsole Flexer resentative (appointed verbally by patient or by statute hierarchy) [email or web address] Care Teams Concreter Relationship Specialty Start Date End Date Gregory Rausch MD [address] [place] [address] PCP - General Family Medicine 02/12/20 documented as of this encounter
--- OUTSIDE RECORDS SUMMARY | 2024-10-02 03:33 | External Medical Summary | Summary of Care ---
Author Name Unknown Organization [facility] Address [address] [place] [address] Phone [phone] Care Team Providers Care Parts Room Associate Name Role Phone Deon Rausch MD Primary Care Provider [phone] Reason for Visit * Reason Onset Date Comments Medication Refill 06/13/2024 Encounter Details Date Type Department Care Team (Late st Contact Info) Description 06/13/2024 Refill Family Practice [facility] [address] [place] [address] Deon Rausch MD [address] [place] [address] Acute intractable tension-type headache Allergies [...] pump 1 Kit 5 4 Active Nystatin 226243 UNIT/GM External Powder (Nystop)Indications :Candidal intertrigo APPLY [...] eye 09/28/2020 Coronary artery disease invo lving [place] coronary artery of [place] heart without angina pectoris 12/16/2019 Last Assessment [...] 12/21/2016 Diabetes mellitus 01/05/2014 12/21/2016 LEYVA RESEARCH OTHER*[id number] 01/05/2014 12/21/2016 Axillary pain 11/03/2013 12/21/2016 Obesity, [...] [facility] V710 Clinical Trial*[id number] 12/22/2010 04/14/2011 S/P aortic valve replacement 12/01/2010 08/26/2011 S/P AORTIC VALVE REPLACEMENT - #25 pericardial Mc valve 11/01/2010 06/28/2018 Overview: Aortic valve replacement with #25 pericardial Mc valve, model 2800TFX, serial number [id number] (Dr. Walker) [facility] V710 Clinical Trial*[id number] 10/18/2010 11/21/2010 Type 2 diabetes mellitus wit [...] 06/07/2018,01/08/20 18,12/05/2017,06/15,10/27/2013,09/12/2013 Pneumococcal Conjugate Vacci ne, 20-valent (Tpbsqtv24) 06/22/2023 Pneumococcal Polysaccharide PPV23 (Pneumovax) 01/02/2008 Seasonal [...] 06/16/2024 7:52 AM EDTSigned Prescriptions: Disp Refills Mliiffbetz-Vgfxgwq-Qxtjxuka 50-325-40 MG O*30 Cap*0 Sig: Take 1 Capsule by mouth every 4 hours as needed for Headache. Authorizing Provider: DEON RAUSCH * Telephone Encounter - Nan Miller [facility] - 06/14/2024 8:22 AM EDTPending Prescriptions: Disp Refills Sazgabxxih-Mbnhwrr-Vphacuun 50-325-40 MG O*30 Cap*0 Sig: Take 1 Capsule by mouth every 4 hours as needed for Headache. * Telephone Encounter - Nan Miller [facility] - 06/14/2024 8:22 AM EDT I have reviewed the patients controlled substance dispensing history in the Prescription Drug Monitoring Program in compliance with the [facility] regulations before prescribing a controlled substance. PDMP checked on 06/14/2024. Pending Prescriptions: Disp Refills Jhkyotvdpp-Icxzfaw-Ozoozlzl 50-325-40 MG *30 Cap*0 Sig: Take 1 Capsule by mouth every 4 hours as needed for Headache. Last Visit: 06/05/2024 (in office), 09/12/2023 (telemedicine) Next Visit: 06/23/2024 Date medication was last filled: 05/07/24 Date medication is due for refill: 05/11/24 Pharmacy: [facility] ([place])-[address] Is this request for a controlled substance? Yes and Urine Drug Screen Not completed Toxicology results: No results found. However, due to the size of the patient record, not all encounters were searched.Please check Results Review for a complete set of results. Please approve if appropriate. Thanks, Nan Miller, [place] Clinical Pharmacist [facility] [phone] 06/14/2024 8:22 AM * Telephone Encounter - Elisa Lombardi PHARM Tech - 06/13/2024 9:14 AM EDT Tried to contact pt to confirm pharmacy but pt didn't answer. Did you pend patient's preferred pharmacy and medication before forwarding?yes Pharmacy: [facility] [place] [place] Pending Prescriptions: Disp Refills Dycqzplykf-Ooogorf-Darkkxfz 50-325-40 MG *30 Cap*0 Sig: Take 1 [...] was the last refill date 05/07/2024 w/ [id number] and dosage 50-325-40 and Urine Drug Screen [...] 06/19/2024 9:40 AM EDT Office Visit Pharmacy, [facility] [place]ie [place] [address] [place] [address] Pharmacist1, [facility] [address] [place] [address] 06/23/2024 9:00 AM EDT Office Visit Family [facility] [address] [facility] [place] [address] Massimo Frias MD [address] [facility] [place] [address] 06/30/2024 10:00 AM EDT Office Visit Gastroenterology, [facility] [address] [facility] [place] [address] Arina Knapp PA-C [address] [place] [address] 07/31/2024 11:15 AM EST Office Visit Ophthalmology, [facility] [address] [facility] [place] [address] Ramsey Burnett, DO [address] [facility] [place] [address] 08/12/2024 9:20 AM EST Office Visit [facility] [address] [facility] [place] [address] Deon Rausch MD [address] [facility] [place] [address] 11/03/2024 11:00 AM EST Office Visit [facility] Disorders [facility]tr [facility] [address] [facility] [place] [phone] BirchChristina patino DO [address] [place] [address] 11/04/2024 9:30 AM EST Office Visit Gastroenterology, [facility] [address] [place] [address] Tia Taylor CRNP [address] [place] [address] 11/27/2024 9:40 AM EST Office Visit Nephrology, [facility] [address] [facility] [place] [address] Fidelina Baumann MD [address] [facility] [place] [address] Scheduled Procedures Name Priority Associated Diagnoses Date/Ti [...] Additional history exists CKD PHOS USE SMARTSET 32127 06/18/202405/26, 06/16/2023, 06/15/2023, Additional history exists HbA1c 08/01/2024 01/30/2024, 08/25, 07/31/2023, Additional history exists Diabetic Eye Exam 09/13/2024 09/13/2023, , 09/13/2023, Additional history exists B-12 09/18/2024 09/18/2023, 08/24, 2020, Additional history exists GFR 11/01/2024 05/01/2024, 12/23, 10/15/2023, Additional history exists Albumin/Creatinine Ratio 01/07/2025 024, 03/09/2023, 12/22/2022, Additional history exists CKD HGB USE SMARTSET 99601 01/07/202501/07, 01/08/2024, 10/15/2023, Additional history exists TSH [...] this encounter Medical Devices Implanted Type Area Acquisition Analyst Device Identifier Shelf Expiration Date Model / Serial / Lot Cath Roselia Single Lumen - [id number] Implanted:Qty : 1 on 03/12/2008 at OR [facility] Left: Chest [employer] *DO NOT USE* 07/25/2012 21-4053-24 / / [id number] Sut Steel 6 M654g - [id number] Implanted:Qty : 1 on 11/01/2010 at OR [facility] N/A: Chest DO NOT USE M654G / / Sut Steel 6 M654g - [id number] Implanted:Qty : 1 on 11/01/2010 at OR [facility] N/A: Chest DO NOT USE M654G / / Valve Tarsha Aortic [id number] - [id number] Implanted:Qty : 1 on 11/01/2010 at OR [facility] N/A: Heart [employer]EL 05/20/2012 [id number] / / [id number] Description:[email or web address] Mesh Soft 11b82yv - [id number] Implanted:Qty : 1 on 10/10/2019 by Gigi Hendrickson MD at [place] [facility] N/A: Abdomen CR BARD : DAVOL [id number] 05/21/2024 [id number] / / [id number] Lens 22.5 Sn60wf - [id number] - [id number] Implanted:Qty : 1 on 09/15/2020 by Renaldo Cook, Cece Acosta MD at [facility] Right: Eye IVA : SURGICAL [id number] 05/13/2025 SN60 WF.225 / [id number] / [id number] Lens 21.5 Sn60wf - [id number] - [id number] Implanted:Qty : 1 on 12/19/2023 by Ramsey Burnett DO at OR [facility] Left: Eye IVA : SURGICAL 12/03/2024 SN60WF.2 15 / [id number] / documented as of this encounter [...] statute hierarchy) Jovita Ovalle Adult Child Health Welding Teacher resentative (appointed verbally by patient or by statute hierarchy) [email or web address] Care Teams Parts Room Associate Relationship Specialty Start Date End Date Deon Rausch MD [address] [place] [address] PCP - General Family Medicine 02/12/20 documented as of this encounter
--- OUTSIDE RECORDS SUMMARY | 2024-10-02 03:34 | External Medical Summary | Summary of Care ---
Author Name Unknown Organization [facility] Address [address] [place] [address] Phone [phone] Care Team Providers Care Delivery Route Driver Name Role Phone Deon Rausch MD Primary Care Provider [phone] Reason for Visit * Reason Comments Nausea 1 1/2 weeks, some vo miting/nausea, and loose stools. Somewhat better,.. Encounter Details Date Type Department Care Team (Late st Contact Info) Description 06/05/2024 9:00 AM EDT Office Visit Family Practice [facility] [address] [place] [address] Dolores Reese CRNP [address] [place] [address] C. difficile colitis*; Dehydration; Confusion; Vomiting and diarrhea; Atrial fibrillation, unspecified type (HCC); Polyneuropathy associated with underlying disease (HCC) Allergies Active Allergy Reactions Criticality Noted Date Comments Adhesive Tape 07/02/2017 Can tolerate band-aids Glycerin Other (Please comment) 03/12/2008 Topical agents with glycein-burning & itching Lactose 12/09/2014 Dairy - gas Lisinopril Cough 01/21/2010 Monosodium Glutamate Edema Other 03/12/2008 Hands and feet Penicillins Rash 11/14/2007 documented as of this encounter (statuses as of 06/05/2024) Medications Medication Sig Dispensed Refills Start Date [...] pump 1 Kit 5 04/10/2024 Active Nystatin 728492 UNIT/GM External Powder (Nystop)Indications: Candidal intertrigo APPLY [...] Tablet before bedtime. 28 Tablet 05/02/2024 Active Kttpiskbsn-Qjuzcpd-U affeine 50-325-40 MG Oral Capsule (Fiorinal)Indication s:Acute [...] as of this encounter (statuses as of 06/05/2024) Active Problems Problem Noted Date Diagnosed Date [...] as of this encounter (statuses as of 06/05/2024) Resolved Problems Problem Noted Date Diagnosed Date [...] 12/21/2016 Diabetes mellitus 01/05/2014 12/21/2016 LEYVA RESEARCH OTHER*[id number] 01/05/2014 12/21/2016 Axillary pain 11/03/2013 12/21/2016 Obesity, [...] cath 09/201008/26/2011 12/21/2016 FOLLOWING SURGERY, UNSPECIFI ED ([facility]SO 08/25/2011) 08/26/2011 12/21/2016 [...] Electronic Medical Record [facility] V710 Clinical Trial*[id number] 12/22/2010 04/14/2011 S/P aortic valve replacement 12/01/2010 08/26/2011 S/P AORTIC VALVE REPLACEMENT - #25 pericardial Mc valve 11/01/2010 06/28/2018 Overview: Aortic valve replacement with #25 pericardial Mc valve, model 2800TFX, serial number [id number] (Dr. Meeks) [facility] V710 Clinical Trial*[id number] 10/18/2010 11/21/2010 Type 2 diabetes mellitus wit [...] as of this encounter (statuses as of 06/05/2024) Immunizations Name Administration Dates Next Due COVID-19 mRNA, LNP-s, No Pre serve, 2-Dose Series (Moderna) 10/25/2021,02/16/2021,01/18/2021 HEP A - Hepatitis A (Adult > 18 yrs) 06/07/2018, 12/05/2017 Hepatitis B, 20+ yrs 06/07/2018,01/08/20 18,12/05/2017,06/15,10/27/2013,09/12/2013 Pneumococcal Conjugate Vacci ne, 20-valent ([id number]) 06/22/2023 Pneumococcal Polysaccharide PPV23 (Pneumovax) 01/02/2008 Seasonal [...] Sign Reading Time Taken Comments Blood Pressure 124/60 06/05/2024 9:14 AM EDT Pulse 95 06/05/2024 9:14 AM EDT Temperature 36.3 C (97.3 F) 06/05/2024 9:14 AM ED T Respiratory Rate - - Oxygen Saturation - - Inhaled Oxygen Concentration - - Weight 67.8 kg (149 lb 7 oz) 06/05/2024 9:14 AM EDT Height - - Body Mass Index 30.18 03/24/2024 11:11 AM EDT documented in this [...] as of this encounter Progress Notes * Dolores Reese CRNP - 06/05/2024 9:11 AM EDT Acute Family Medicine Visit CC: Vomiting and diarrhea History of Present Illness: Jovita Rose is a 63 year old female presenting today with tamiko her caregiver. She has been treated for c diff with dificit but started having diarrhea almost hourly. This is watery and incontinent of the stool. She is having abdominal pain. Denies fever. Last time that she ate something was 11 pm last night. She went 3 days without eating and sleeping all day 2 days ago. lAST OZEMPIC dose was Sunday. 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 Employer: [employer] Occupation: retired Tobacco Use Smoking status: Never [...] Stability Do you currently live in a retirement or have no steady place to sleep [...] - for ages0-17 years): Not on file PMH: Past Medical History: Diagnosis Date Aortic valve stenosis Cataract, senile Diarrhea DM type 2, not at goal (HCC) Diabetes Type II, Uncontrolled Dyslipidemia, goal LDL below 70 2003 ANIVAL (generalized anxiety disorder) 12/05/2017 Heart failure, diastolic, due to HTN (HCC) 07/23/2013 History of breast cancer 10/01/2014 History [...] Recurrent major depressive disorder, in full remission ([facility]) 12/05/2017 S/P AORTIC VALVE REPLACEMENT - #25 pericardial Mc valve 11/01/2010 Type 2 diabetes mellitus with diabetic neuropathy, with long-term current use of insulin ([facility]) 08/23/2018 Ventral hernia without obstruction or gangrene 12/21/2016 Past Surgical History: Procedure Laterality Date CARPAL TUNNEL SURGERY Left 12/09/2014 NEUROPLASTY MEDIAN NERVE AT CARPAL TUNNEL performed by Levi Peralta MD at [facility] CARPAL TUNNEL SURGERY Right 02/23/2015 NEUROPLASTY MEDIAN NERVE AT CARPAL TUNNEL performed by Levi Peralta MD at [facility] CATARACT SURGERY,COMPLEX Left 12/19/2023 LEFT EXTRACAPSULAR CATARACT REMOVAL COMPLEX WITH IOL performed by Ramsey Burnett DO at [facility] DELIVERY x4 COLONOSCOPY, DIAGNOSTIC (RECTUM) 05/23/2011 COLONOSCOPY FLEXIBLE PROXIMAL DIAGNOSTIC performed by BELINDA JAMES at [facility]OSCOPY [facility] COLONOSCOPY, DIAGNOSTIC (RECTUM) 12/08/2013 COLONOSCOPY FLEXIBLE PROXIMAL DIAGNOSTIC performed by Gigi Haro MD at ENDOSCOPY [facility] COLONOSCOPY, DIAGNOSTIC (RECTUM) 07/02/2018 poor prep, repeat / [facility] COLONOSCOPY, DIAGNOSTIC (RECTUM) 07/03/2018 adenomatous polyps, diverticulosis, repeat 3 yrs/[facility] COLONOSCOPY, DIAGNOSTIC (RECTUM) 09/13/2022 benign adenomatous polyps, diverticulosis, repeat 3 yrs / COLONOSCOPY FLEXIBLE PROXIMAL DIAGNOSTIC performed by Rajinder Wheeler MD at [facility]OSCOPY [facility] CORONARY ANGIOGRAPHY W/RIGHT+LEFT CATH 10/10/2010 CORONARY ANGIOGRAPHY W/RIGHT+LEFT CATH performed by MARNI SULLIVAN at [facility]ARD[facility]AC LABS [facility] CV ECHO, ALMA INTRAOPERATIVE N/A 06/21/2023 ECHOCARDIOGRAPHY, TRANSESOPHAGEAL; INCLUDING PROBE PLACEMENT, IMAGE ACQUISITION, INTERPRETATION ANDREPORT performed by In And Out Surgery [facility] at [facility] EGD, FLEXIBLE, DIAGNOSTIC 07/02/2018 erosive gastropathy, repeat 2 yrs / [facility] EGD, FLEXIBLE, DIAGNOSTIC 04/15/2021 normal, repeat 3 yrs / ESOPHAGOGASTRODUODENOSCOPY (EGD), FLEXIBLE, TRANSORAL, DIAGNOSTIC performed by Rajinder Wheeler MD at ENDOSCOPY [facility] EGD, FLEXIBLE, DIAGNOSTIC 06/08/2023 ESOPHAGOGASTRODUODENOSCOPY (EGD), FLEXIBLE, TRANSORAL, DIAGNOSTIC performed by Sushant Alicea MD at [place] [facility] EGD, FLEXIBLE, DIAGNOSTIC N/A 06/04/2023 erythematous mucosa gastric body/EGD/MN EGD, FLEXIBLE, DIAGNOSTIC N/A 06/06/2023 large area of greater curvature, gastric body ischemia with signs of gastric wall necrosis/EGD/MN ESOPHAGOSCOPY, FLEXIBLE, DIAGNOSTIC N/A 06/06/2023 ESOPHAGOSCOPY DIAGNOSTIC performed by Sushant Alicea MD at [place] [facility] EXC BREAST LESION RADMARK 01/30/2008 EXCISION OF BREAST LESION RADIOLOGICAL MARKER performed by PAUL PEDRO at OR [facility] EXPLORATION OF ABDOMEN N/A 06/06/2023 EXPLORATORY LAPAROTOMY performed by Sushant Alicea MD at [place] [facility] EXPLORATION OF ABDOMEN N/A 06/08/2023 EXPLORATORY LAPAROTOMY performed by Sushant Alicea MD at [place] [facility] FOOT/TOE SURGERY NEC Foot/Toes Surgery Proc Unlisted HYSTEROSCOPY W/BIOPSY AND/OR POLYPECTOMY W/WO D&C 01/30/2008 HYSTEROSCOPY WITH BIOPSY performed by ABIEL CHOI JR at OR [facility] HYSTEROSCOPY W/BIOPSY AND/OR POLYPECTOMY W/WO D&C 06/21/2011 HYSTEROSCOPY WITH BIOPSY AND/OR POLYPECTOMY performed by ABIEL CHOI JR at OR [facility] IDENTIFY SENTINEL NODE, RADIOACTIVE TRACER 02/24/2008 INJECTION PROCEDURE FOR IDENTIFICATION SENTINEL NODE performed by PAUL PEDRO at OR 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 LAPAROSCOPY DIAGNOSTIC N/A 06/06/2023 LAPAROSCOPY DIAGNOSTIC performed by Sushant Alicea MD at [place] [facility] MASTECTOMY, SIMPLE, COMPLETE 02/24/2008 MASTECTOMY SIMPLE COMPLETE performed by PAUL PEDRO at OR [facility] NEG PRESSURE WOUND THERAPY DME >50 SQ CM N/A 06/06/2023 NEGATIVE PRESSURE WOUND THERAPY GREATER THAN 50SQ CM performed by Sushant Alicea MD at [place] [facility] OTHER ACT 112 Signed, 12/07/2020 OTHER Avastin OD consent signed, 02/28/2021-02/28/2022 PARTIAL COLECTOMY W/ANASTOMOSIS 2005 Colectomy Partial REMOVAL OF APPENDIX Appendectomy REMOVAL OF BREAST IMPLANT 07/11/2010 REMOVAL OF INTACT MAMMARY IMPLANT performed by DEON BARBOSA II at OR [facility] REMOVAL OF OVARY/OVIDUCT(S) 08/25/2011 SALPINGO OOPHORECTOMY performed by ABIEL CHOI JR at OR [facility] REMOVE ARMPIT LYMPH NODES, COMPLETE 02/24/2008 AXILLARY LYMPHADENECTOMY COMPLETE performed by PAUL PEDRO at OR [facility] REMOVE CATARACT, INSERT LENS PROSTH Right 09/15/2020 [...] by Dawood Laird MD at [facility] REPLACE AORTIC VALVE, PERCUTANEOUS FEMORAL 11/06/2017 REPLACE AORTIC VALVE, PERCUTANEOUS FEMORAL performed by Belinda Liang MD at [facility] REPLACEMENT AORTIC VALVE, BYPASS WITH PROSTHETIC VALVE 11/01/2010 REPLACEMENT AORTIC VALVE performed by RITA MEEKS at OR [facility] REVISION OF ULNAR NERVE AT ELBOW Right 02/23/2015 NEUROPLASTY AND OR TRANSPOSITION ULNAR NERVE ELBOW performed by Levi Peralta MD at OR [facility] SIGMOIDOSCOPY, DIAGNOSTIC N/A 06/08/2023 SIGMOIDOSCOPY FLEXIBLE DIAGNOSTIC performed by Sushant Alicea MD at [facility] TOTAL ABD HYSTERECTOMY W/WO REMOVAL OF TUBE(S) 08/25/2011 TOTAL ABDOMINAL HYSTERECTOMY WITH OR WITHOUT TUBES AND OVARIES performed by ABIEL CHOI JR [facility] Current Outpatient Medications Medication Sig Dispense Refill DULoxetine HCl 20 MG Oral Capsule Delayed Release Particles (Cymbalta) Take 1 Capsule by mouth in the morning. 30 Capsule 1 Metoprolol Tartrate 50 MG Oral Tablet (Lopressor) Take 1 Tablet by mouth in the morning and 1 Tablet before bedtime. 180 Tablet 3 Wiesatisct-Zbqyqru-Tiholvkl 50-325-40 MG Oral Capsule (Fiorinal) Take 1 Capsule by mouth every 4 hours as needed for Headache. 30 Capsule 0 Saccharomyces boulardii 250 MG Oral Capsule (Florastor) Take 1 Capsule by mouth in the morning and 1 Capsule before bedtime. 60 Capsule 0 Vancomycin HCl 125 MG Oral Capsule (Vancocin) 125 mg orally 4 times daily for 2 wks, then 2 x/day xwk, then daily x 1 wk, then every other day for 8 wks 100 Capsule 0 Dificid 200 MG Oral Tablet (Fidaxomicin) Take 1 Tablet by mouth in the morning and 1 Tablet before bedtime. 28 Tablet 0 Loperamide HCl 2 MG Oral Capsule (Imodium A-D) Take 1 Capsule by mouth 4 times a day as needed for Diarrhea. Nystatin 502873 UNIT/GM External Powder (Nystop) APPLY TOPICALLY TO AFFECTED AREA 3 TIMES A DAY. 60g 1 Omnipod 5 G6 Intro (Gen 5) Kit Use as directed. Use to delivery insulin via insulin pump 1 Kit 5 Insulin Aspart 100 UNIT/ML Injection Solution (NovoLOG) Use up to 50 units per day in Omnipod. BD Insulin Syringe 25G X 1" 1 [...] nostril in the morning. 16 g 3 Gabapentin 300 MG Oral Capsule (Neurontin) Take 1 Capsule by mouth in the morning and 1 Capsule at noon and 1 Capsule before bedtime. 90 Capsule 5 OneTouch Verio In Vitro Strip (Glucose [...] 2 times a day. 360 Tablet 2 Ozempic (2 MG/DOSE) 8 MG/3ML Subcutaneous Solution Pen-injector (Semaglutide (2 MG/DOSE)) Inject 2 mg under the skin once a week. 9 mL 3 Probiotic (Lactobacillus) Oral Capsule Take 2 Capsules by mouth in the morning. One-A-Day Womens 50 Plus Oral Tablet Take 1 Tablet by mouth in the morning. CPAP every night at bedtime. traZODone HCl 100 MG Oral Tablet (Desyrel) Take 1 Tablet by mouth at bedtime. Gaviscon 80-14.2 MG Oral Tablet Chewable (Alum Hydroxide-Mag Trisilicate) Take by mouth as needed. Melatonin 10 MG Oral Capsule Take 1 Capsule by mouth at bedtime. zumatekuch DelLiquiGlide Lancets 33G TEST 4 TIMES DAILY DIRECTED, [...] Other Hands and feet Pcn [Penicillins] Rash Most Recent Immunizations Administered Date(s) Administered COVID-19 mRNA, LNP-s, No Preserve, 2-Dose Series (Moderna) 10/25/2021 HEP A - Hepatitis A (Adult > 18 yrs) 06/07/2018 Hepatitis B, 20+ yrs 06/07/2018 Pneumococcal Conjugate Vaccine, 20-valent ([id number]) 06/22/2023 Pneumococcal Polysaccharide PPV23 (Pneumovax) 01/02/2008 Seasonal Influenza, PF, 6 M & above, IM , (FluLaval or Fluzone) 06/22/2023 Seasonal Influenza, QUAD, with Preserv, 6 mons & Above, 0.5 mL, IM 05/02/2018 Seasonal Influenza, Quadrivalent Hd (Fluzone Hd) 06/29/2022 Seasonal Influenza, Quadrivalent, No Preserve, IM 05/28/2019 Seasonal Influenza, Trivalent, (IIV3), with Preserv, (Fluzone) 11/26/2016 TDAP (age 10 and older)(Boostrix) 06/28/2018 TDAP, Age 7 and older, IM (Adacel) 06/09/2008 Zoster Vaccine Recombinant (Shingrix) 11/29/2019 Review of Systems: Review of Systems Constitutional: Positive for fatigue. Negative for chills, diaphoresis, fever and unexpected weightchange. Respiratory: Negative for shortness of breath. Cardiovascular: Negative for chest pain. Gastrointestinal: Positive for abdominal pain, diarrhea, nausea and vomiting. Psychiatric/Behavioral: CAREGIVER IS REPORTING SHE HAS BEEN CONFUSED Physical Exam: LMP 04/07/2011 Physical Exam HENT: Head: Normocephalic. Cardiovascular: Rate and Rhythm: Normal rate and regular rhythm. Pulmonary: Effort: Pulmonary effort is normal. Breath sounds: Decreased breath sounds present. Abdominal: Tenderness: There is abdominal tenderness in the left upper quadrant and left lower quadrant. Neurological: Mental Status: She is alert. Assessment and Plan: 1. Dehydration Acute dehydration as a result of hourly diarrhea Caregiver also reports confusion EMS transported to hospital as caregiver stated she could not Report given to EMS 2. Confusion A and o X 4 HERE Caregiver reports that she has intermittent confusion at home. 3. Vomiting and diarrhea X 1.5 week Hourly diarrhea Able to tolerate some fluids 4. C. difficile colitis Worsening on dificid LLQ very tender I have advised the patient to call our office incase of any worsening or new symptoms. I spent a total of 40-54 minutes (exact time 40 mins) on the date of service in preparation, delivery, and documentation of the care provided to Jovita Rose excluding any time spent in the performance of separately billed services. Bree, MSN, [facility] documented in this encounter Plan of Treatment Upcoming Encounters Date Type Department Care Team (Late st Contact Info) Description 06/11/2024 2:30 PM EDT Home Visit [facility] [address] [address] Zurdo Christina, RN [address] [address] 06/19/2024 9:40 AM EDT Office Visit [facility], [facility] [address] [facility] [place] [address] Pharmacist1, [facility] [address] [place] [address] 08/12/2024 9:20 AM EST Office Visit Family Practice [facility] [address] [address] Deon Rausch MD [address] [address] 11/03/2024 11:00 AM EST Office Visit Sleep Disorders Ctr [facility] [address] [phone] Christina Birch DO [address] [place] [address] 11/04/2024 9:30 AM EST Office Visit Gastroenterology, [facility] [address] [place] [address] Tia Taylor CRNP [address] [place] [address] 11/27/2024 9:40 AM EST Office Visit Nephrology, [facility] [address] [facility] [place] [address] Fidelina Baumann MD [address] [facility] [place] [address] Scheduled Procedures Name Priority Associated Diagnoses Date/Ti [...] Additional history exists CKD PHOS USE SMARTSET 44087 06/18/202405/26, 06/16/2023, 06/15/2023, Additional history exists HbA1c 08/01/2024 01/30/2024, 08/25, 07/31/2023, Additional history exists Diabetic Eye Exam 09/13/2024 09/13/2023, , 09/13/2023, Additional history exists B-12 09/18/2024 09/18/2023, 08/24, 2020, Additional history exists GFR 11/01/2024 05/01/2024, 12/23, 10/15/2023, Additional history exists Albumin/Creatinine Ratio 01/07/2025 024, 03/09/2023, 12/22/2022, Additional history exists CKD HGB USE SMARTSET 59561 01/07/202501/07, 01/08/2024, 10/15/2023, Additional history exists TSH [...] encounter Medical Devices Implanted Type 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 N/A: Chest DO NOT USE M654G / / Valve Tarsha Aortic [id number] - [id number] Implanted:Qty : 1 on 11/01/2010 at OR [facility] N/A: Heart CM [employer] DANIEL 05/20/2012 [id number]-25 / / [id number] Description:[email or web address] Mesh Soft 09h04ig - [id number] Implanted:Qty : 1 on 10/10/2019 by Gigi Hendrickson MD at [place] [facility] N/A: Abdomen CR BARD : DAVOL [id number] 05/21/2024 [id number] / / [id number] Lens 22.5 Sn60wf - [id number] - [id number] Implanted:Qty : 1 on 09/15/2020 by Renaldo Cook, Cece Acosta MD at OR [facility] Right: Eye IVA : SURGICAL [id number] 05/13/2025 SN60 WF.225 / [id number] / [id number] Lens 21.5 Sn60wf - [id number] - [id number] Implanted:Qty : 1 on 12/19/2023 by Ramsey Burnett DO at OR [facility] Left: Eye IVA : SURGICAL 12/03/2024 SN60WF.2 15 / [id number] / documented as of this encounter Visit Diagnoses Diagnosis C. difficile colitis- Primary Intestinal infection due to clostridium difficile Dehydration Confusion Unspecified psychosis Vomiting and diarrhea Vomiting alone Atrial fibrillation, unspecified type (HCC) Polyneuropathy associated with underlying disease (HCC) documented [...] statute hierarchy) Jovita Ovalle Adult Child Health Pst Manager resentative (appointed verbally by patient or by statute hierarchy) [email or web address] Delivery Route Driver Relationship Specialty Start Date End Date Deon Rausch MD [address] [address] PCP - General Family Medicine 02/12/20 documented as of this encounter
--- OUTSIDE RECORDS SUMMARY | 2024-10-02 03:34 | External Medical Summary | Summary of Care ---
Author Name Unknown Organization [facility] Address [address] [place] [address] Phone [phone] Care Team Providers Care Mainframe Systems Engineer Name Role Phone Gregory Rausch MD Primary Care Provider [phone] Reason for Visit * Reason Onset Date Comments Advice 03/11/2024 Encounter Details Date Type Department Care Team (Late st Contact Info) Description 03/11/2024 Telephone Family Practice [facility] [address] [place] [address] Gregory Rausch MD [address] [place] [address] Advice Allergies Active Allergy Reactions Criticality Noted Date Comments Adhesive Tape 07/02/2017 Can tolerate band-aids Glycerin Other (Please comment) 03/12/2008 Topical agents with glycein-burning & itching Lactose 12/09/2014 Dairy - gas Lisinopril Cough 01/21/2010 Monosodium Glutamate Edema Other 03/12/2008 Hands and feet Penicillins Rash 11/14/2007 documented as of this encounter (statuses as of 06/10/2024) Medications Medication Sig Dispensed Refills Start Date [...] as of this encounter (statuses as of 06/10/2024) Active Problems Problem Noted Date Diagnosed Date [...] as of this encounter (statuses as of 06/10/2024) Resolved Problems Problem Noted Date Diagnosed Date [...] 12/21/2016 Diabetes mellitus 01/05/2014 12/21/2016 LEYVA RESEARCH OTHER*[id number] 01/05/2014 12/21/2016 Axillary pain 11/03/2013 12/21/2016 Obesity, [...] FOLLOWING SURGERY, UNSPECIFI ED ([facility] BSO 08/25/2011) 08/26/2011 12/21/2016 ADVANCE DIRECTIVE [...] Record [facility] V710 Clinical Trial*[id number] 12/22/2010 04/14/2011 S/P aortic valve replacement 12/01/2010 08/26/2011 S/P AORTIC VALVE REPLACEMENT - #25 pericardial Hernandez valve 11/01/2010 06/28/2018 Overview: Aortic valve replacement with #25 pericardial Hernandez valve, model 2800TFX, serial number [id number] (Dr. Walker) [facility] V710 Clinical Trial*[id number] 10/18/2010 11/21/2010 Type 2 diabetes mellitus wit [...] as of this encounter (statuses as of 06/10/2024) Immunizations Name Administration Dates Next Due COVID-19 mRNA, LNP-s, No Pre serve, 2-Dose Series (Moderna) 10/25/2021,02/16/2021,01/18/2021 HEP A - Hepatitis A (Adult > 18 yrs) 06/07/2018, 12/05/2017 Hepatitis B, 20+ yrs 06/07/2018,01/08/20 18,12/05/2017,06/15,10/27/2013,09/12/2013 Pneumococcal Conjugate Vacci ne, 20-valent ([id number]) 06/22/2023 Pneumococcal Polysaccharide PPV23 (Pneumovax) 01/02/2008 Seasonal [...] No 04/08/2024 Does the household have a [facility] source of income? (Household - for ages [...] Telephone Encounter - Jose Briggs RN - 03/11/2024 6:43 PM EDT Called patient and informed her of Laya's previous message. She verbalized understanding. Advisedpatient to go to urgent care to be seen for her headache then schedule follow up appointment in office. She verbalized understanding and is agreeable. FYI. * Telephone Encounter - Laya Garcia OSA - 03/11/2024 2:40 PM EDT No acutes open and the next return with any provider is 04-24-24, please advise to pt * Telephone Encounter - Gayle Duncan LPN - 03/11/2024 2:35 PM EDT Called pt back who states she has had a BONILLA every day for the past 3 weeks. No change in vision and pt states she is properly hydrated. Advised an appointment would be needed to further evaluated. Pt agreeable. Please assist pt with first available with any provider Thank you * Telephone Encounter - Mary Anne Pratt OSA - 03/11/2024 10:20 AM EDT Patient called that she is getting a lot of headache. Want a nurse to called her. documented in this encounter Plan of Treatment Upcoming Encounters Date Type Department Care Team (Late st Contact Info) Description 06/11/2024 2:30 PM EDT Home Visit [facility], [facility] [address] [address] Zurdo Christina, RN [address] [address] 06/13/2024 11:00 AM EDT Office Visit [facility] [address] [address] Gregory Rausch MD [address] [address] 06/19/2024 9:40 AM EDT Office Visit Pharmacy, [facility] [address] [facility] [address] [facility] [place] [address] Pharmacist1, [facility] [address] [facility] [place] [address] 08/12/2024 9:20 AM EST Office Visit [facility] [address] [address] Gregory Rausch MD [address] [address] 11/03/2024 11:00 AM EST Office Visit [facility] [address] [phone] Christina Birch, [address] [address] 11/04/2024 9:30 AM EST Office Visit Gastroenterology, [facility] [address] [address] Tia Taylor CRNP [address] [address] 11/27/2024 9:40 AM EST Office Visit Nephrology, [facility] [address] [place] [address] Fidelina Baumann MD [address] [place] [address] Scheduled Procedures Name Priority Associated Diagnoses Date/Ti [...] Additional history exists CKD PHOS USE SMARTSET 75276 06/18/202405/26, 06/16/2023, 06/15/2023, Additional history exists HbA1c 08/01/2024 01/30/2024, 08/25, 07/31/2023, Additional history exists Diabetic Eye Exam 09/13/2024 09/13/2023, , 09/13/2023, Additional history exists B-12 09/18/2024 09/18/2023, 08/24, 2020, Additional history exists GFR 11/01/2024 05/01/2024, 12/23, 10/15/2023, Additional history exists Albumin/Creatinine Ratio 01/07/2025 024, 03/09/2023, 12/22/2022, Additional history exists CKD HGB USE SMARTSET 32636 01/07/202501/07, 01/08/2024, 10/15/2023, Additional history exists TSH [...] this encounter Medical Devices Implanted Type Area Discotheque Dancer Device Identifier Shelf Expiration Date Model / Serial / Lot Cath Roselia Single Lumen - [id number] Implanted:Qty : 1 on 03/12/2008 at OR [facility] Left: Chest [facility] *DO NOT USE* 07/25/2012 21-4053-24 / / [id number] Sut Steel 6 M654g - [id number] Implanted:Qty : 1 on 11/01/2010 at OR [facility] N/A: Chest DO NOT USE M654G / / Sut Steel 6 M654g - [id number] Implanted:Qty : 1 on 11/01/2010 at OR [facility] N/A: Chest DO NOT USE M654G / / Valve Tarsha Aortic [id number] - [id number] Implanted:Qty : 1 on 11/01/2010 at OR [facility] N/A: Heart [employer] DANIEL 05/20/2012 2800TFX-25 / / [id number] Description:[email or web address] Mesh Soft 13q85vt - [id number] Implanted:Qty : 1 on 10/10/2019 by Gigi Hendrickson MD at [place] [facility] N/A: Abdomen CR BARD : DAVOL [id number] 05/21/2024 [id number] / / [id number] Lens 22.5 Sn60wf - [id number] - [id number] Implanted:Qty : 1 on 09/15/2020 by Renaldo Cook, Cece Acosta MD at OR [facility] Right: Eye IVA : SURGICAL [id number] 05/13/2025 SN60 WF.225 / [id number] / [id number] Lens 21.5 Sn60wf - [id number] - [id number] Implanted:Qty : 1 on 12/19/2023 by Ramsey Burnett DO at OR [facility] Left: Eye IVA : SURGICAL 12/03/2024 SN60WF.2 15 / [id number] / documented as of this encounter [...] hierarchy) Jovita Ovalle Adult Child Health Medical Illustrator resentative (appointed verbally by patient or by statute hierarchy) Care Teams Mainframe Systems Engineer Relationship Specialty Start Date End Date Gregory Rausch MD [address] [place] [address] PCP - General Family Medicine 02/12/20 documented as of this encounter
--- OUTSIDE RECORDS SUMMARY | 2024-10-02 03:34 | External Medical Summary | Summary of Care ---
Author Name Unknown Organization [facility] Address [address] [place] [address] Phone [phone] Care Team Providers Care Chapter Relations Administrator Name Role Phone Gregory Rausch MD Primary Care Provider [phone] Encounter Details Date Type Department Care Team (Late st Contact Info) Description 06/09/2024 Population Health External Data Unspecified Department Allergies Active Allergy Reactions Criticality Noted Date Comments Adhesive Tape 07/02/2017 Can tolerate band-aids Glycerin Other (Please comment) 03/12/2008 Topical agents with glycein-burning & itching Lactose 12/09/2014 Dairy - gas Lisinopril Cough 01/21/2010 Monosodium Glutamate Edema Other 03/12/2008 Hands and feet Penicillins Rash 11/14/2007 documented as of this encounter (statuses as of 06/09/2024) Medications Medication Sig Dispensed Refills Start Date [...] pump 1 Kit 5 04/10/2024 Active Nystatin 955709 UNIT/GM External Powder (Nystop)Indications: Candidal intertrigo APPLY [...] Tablet before bedtime. 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 V710 Clinical Trial*[id number] 12/22/2010 04/14/2011 S/P aortic valve replacement 12/01/2010 08/26/2011 S/P AORTIC VALVE REPLACEMENT - #25 pericardial Mc valve 11/01/2010 06/28/2018 Overview: Aortic valve replacement with #25 pericardial Mc valve, model 2800TFX, serial number [id number] (Dr. Walker) [facility] V710 Clinical Trial*[id number] 10/18/2010 11/21/2010 Type 2 diabetes mellitus wit [...] as of this encounter (statuses as of 06/09/2024) Immunizations Name Administration Dates Next Due COVID-19 mRNA, LNP-s, No Pre serve, 2-Dose Series (Moderna) 10/25/2021,02/16/2021,01/18/2021 HEP A - Hepatitis A (Adult > 18 yrs) 06/07/2018, 12/05/2017 Hepatitis B, 20+ yrs 06/07/2018,01/08/20 18,12/05/2017,06/15,10/27/2013,09/12/2013 Pneumococcal Conjugate Vacci ne, 20-valent ([id number]) 06/22/2023 Pneumococcal Polysaccharide PPV23 (Pneumovax) 01/02/2008 Seasonal [...] Description 06/11/2024 2:30 PM EDT Home Visit [facility] [address] [address] Zurdo Christina RN [address] [address] 06/13/2024 11:00 AM EDT Office Visit [facility] [address] [address] Gregory Rausch MD [address] [address] 06/19/2024 9:40 AM EDT Office Visit Pharmacy, [facility] [address] [facility] [place] [address] Pharmacist1, [facility] [address] [facility] [place] [address] 08/12/2024 9:20 AM EST Office Visit [facility] [address] [address] Gregory Rausch MD [address] [address] 11/03/2024 11:00 AM EST Office Visit [facility] Ctr [facility] [address] [phone] Christina Birch DO [address] [address] 11/04/2024 9:30 AM EST Office Visit Gastroenterology, [facility] [address] [place] [address] Tia Taylor CRNP [address] [place] [address] 11/27/2024 9:40 AM EST Office Visit Nephrology, [facility] [address] [facility] [place] [address] Fidelina Baumann MD [address] [facility] [place] [address] Scheduled Procedures Name Priority Associated Diagnoses Date/Ti [...] Additional history exists CKD PHOS USE SMARTSET 75707 06/18/202405/26, 06/16/2023, 06/15/2023, Additional history exists HbA1c 08/01/2024 01/30/2024, 08/25, 07/31/2023, Additional history exists Diabetic Eye Exam 09/13/2024 09/13/2023, , 09/13/2023, Additional history exists B-12 09/18/2024 09/18/2023, 08/24, 2020, Additional history exists GFR 11/01/2024 05/01/2024, 12/23, 10/15/2023, Additional history exists Albumin/Creatinine Ratio 01/07/2025 024, 03/09/2023, 12/22/2022, Additional history exists CKD HGB USE SMARTSET 98184 01/07/202501/07, 01/08/2024, 10/15/2023, Additional history exists TSH [...] this encounter Medical Devices Implanted Type Area Banquet Chef Device Identifier Shelf Expiration Date Model / Serial / Lot Cath Roselia Single Lumen - [id number] Implanted:Qty : 1 on 03/12/2008 at OR [facility] Left: Chest [facility] *DO NOT USE* 07/25/2012 21-4053-24 / / [id number] Sut Steel 6 M654g - [id number] Implanted:Qty : 1 on 11/01/2010 at OR [facility] N/A: Chest DO NOT USE M654G / / Sut Steel 6 M654g - [id number] Implanted:Qty : 1 on 11/01/2010 at OR [facility] N/A: Chest DO NOT USE M654G / / Valve Tarsha Aortic [id number] - [id number] Implanted:Qty : 1 on 11/01/2010 at OR [facility] N/A: Heart [employer] DANIEL 05/20/2012 2800TFX-25 / / [id number] Description:[email or web address] Mesh Soft 68p46xf - [id number] Implanted:Qty : 1 on 10/10/2019 by Gigi Hendrickson MD at [place] [facility] N/A: Abdomen CR BARD : DAVOL [id number] 05/21/2024 [id number] / / [id number] Lens 22.5 Sn60wf - [id number] - [id number] Implanted:Qty : 1 on 09/15/2020 by Renaldo Cook, Cece Acosta MD at [facility] Right: Eye IVA : SURGICAL [id number] 05/13/2025 SN60 WF.225 / [id number] / [id number] Lens 21.5 Sn60wf - [id number] - [id number] Implanted:Qty : 1 on 12/19/2023 by Ramsey Burnett DO at OR [facility] Left: Eye IVA : SURGICAL 12/03/2024 SN60WF.2 15 / [id number] / documented as of this encounter [...] statute hierarchy) Jovita Ovalle Adult Child Health Flour Mixer resentative (appointed verbally by patient or by statute hierarchy) [email or web address] Care Teams Chapter Relations Administrator Relationship Specialty Start Date End Date Gregory Rausch MD [address] [address] PCP - General Family Medicine 02/12/20 documented as of this encounter
[2024-10-02] MEDS: LEVOTHYROXINE SODIUM 75 MCG TABLET PO SCH (05:37)
[2024-10-02 07:20] LABS: Estimated Average Glucose 255 mg/dl; Hemoglobin A1C 10.5 % (4.5-5.6)
[2024-10-02 07:31] LABS: Basophils # (auto) 0.06 K/uL (0.00-0.20); Basophils % (auto) 0.7 %; Eosinophils # (auto) 0.15 K/uL (0.00-0.50); Eosinophils % (auto) 1.7 %; Hematocrit (blood only) 38.3 % (37.0-47.0); Hemoglobin 13.2 g/dl (12.0-16.0); Immature Granulocytes # (auto) 0.02 K/uL (0.01-0.20); Immature Granulocytes % (auto) 0.2 %; Lymphocytes # (auto) 3.58 K/uL (1.20-3.40); Lymphocytes % (auto) 41.1 %; Mean Corpuscular Hemoglobin 27.4 pg (25.0-34.0); Mean Corpuscular Hgb Conc 34.5 g/dL (32.0-36.0); Mean Corpuscular Volume 79.6 fL (80.0-100.0); Monocytes # (auto) 0.57 K/uL (0.11-0.59); Monocytes % (auto) 6.5 %; Neutrophils # (auto) 4.34 K/uL (1.40-6.50); Neutrophils % (auto) 49.8 %; Platelet Count 140 K/uL (130-400); RDW Coefficient of Variation 13.5 % (11.5-14.5); RDW Standard Deviation 38.7 fL (36.4-46.3); Red Blood Count 4.81 M/uL (4.20-5.40); White Blood Count 8.72 K/ul (4.8-10.8)
--- NOTE | 2024-10-02 07:32 | Hospitalist Progress Note ---
<Statement entered by Olu Barrera, - 10/02/24 15:57> I have seen and examined the patient and have discussed the case with the provider above. I have reviewed the advanced practitioner's documentation, and I agree with, and take responsibility for that plan of care. Events of the morning reviewed. Seems as though her symptoms do seem to fluctuate with her glucose. Reviewed repeat head CT, no acute findings when compared to previous Communication with Dr. Jaramillo, agrees that the symptoms may be attributable to her hyperglycemia. Continue to monitor on telemetry and anticipate discharging with plans for outpatient ZIO monitoring Further plan as outlined below Date of Service October 02, 2024 Assessment & Plan (1) Stroke-like symptoms: (2) Hyperglycemia due to type 2 diabetes mellitus: (3) Abnormal urinalysis: (4) Pseudohyponatremia: Plan Jovita Rose is a 63y/o F with PMHx significant for aortic stenosis s/p TAVR [2017], CAD s/p drug-eluting stent to LAD, HFpEF, DM type II, hypothyroidism, HLD, liver cirrhosis 2/2 LEYVA, HTN, questionable paroxysmal atrial fibrillation, DANYELLE intolerant to CPAP, CKD stage III, benign paroxysmal positional vertigo 2/2 bilateral vestibular disorder, schizoaffective disorder, history of breast cancer s/p bilateral mastectomies + chemoradiation [2007], history of colon cancer s/p colon resection, history of GI bleed, history of C. difficile infection and splenic infarcts who presented to the ED on 10/01/2024 for evaluation of word finding difficulty and slurred speech. Patient is currently being managed for the following: Strokelike Symptoms - Intermittent Expressive Aphasia Uncontrolled Insulin-Dependent DM Type II, Hyperglycemia: Initial stroke evaluation including head CT, head/neck CTA and brain MRI were all unremarkable. Echocardiogram pending. Patient's symptoms had initially resolved at time of admission however she has had 2 episodes of expressive aphasia since being admitted, most recently this morning. Repeat head CT completed this morning given her recurrence of symptoms which was unremarkable. Patient with known history of uncontrolled insulin-dependent DM type II. Patient has remained persistently hyperglycemic since admission which may certainly be a contributing cause to her strokelike symptoms. BSG was 438 this morning when she once again developed expressive aphasia. Glycemic pharmacy involved. Patient received 55 units of insulin glargine this morning; 94 units of insulin aspart thus far. She also received 5 units of Novolin-R this morning. Most recent BSG as of 14:05 was 247. Patient has not experienced any further episodes of expressive aphasia since this morning per nursing staff. Hgb A1c is 10.5% this admission. Ozempic on hold. 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 senior health educator consulted. Neurology consult is still pending for further evaluation. Lipid panel --> Triglycerides 330, Total Cholesterol 126, LDL 29, VLDL 66 & HDL 31. Telemetry benign. Of note, patient was loaded with aspirin 324mg in the ED. Continue daily baby aspirin, Plavix and statin. Patient currently on optimal medical management. Continue PT/OT. Abnormal UA: UA on admission with 2+ LE, 21-50 WBC and 1+ bacteria. Patient without any urinary complaints. Likely asymptomatic bacteriuria however will cover with IV Rocephin for now pending urine culture results. Patient has grown pansensitive E. coli, Klebsiella pneumoniae in the past sensitive to Rocephin. Probiotic added on. Pseudohyponatremia: Pseudohyponatremia in setting of hyperglycemia. Sodium 132 today; corrected sodium for hyperglycemia with BSG of 438 this morning = 140. Continue to monitor. Questionable Paroxysmal Atrial Fibrillation, CAD S/P Stenting: Patient follows with [facility] [Dr. Muniz]. Of note, patient was previously admitted to [facility] in May 2023 and was found to have new-onset atrial fibrillation with rapid ventricular response. Patient was not previously anticoagulated at that time secondary to acute upper GI bleeding. She ultimately had to be transferred to [facility] at that time. She was incidentally noted to have splenic infarcts on imaging conducted at [facility] during her continued admission there amongst other things. Patient had Zio patch monitoring completed in September of last year to evaluate for occult atrial fibrillation sending splenic infarcts however this was negative for any evidence of atrial fibrillation - suspect this is as to why she was not placed on anticoagulation. No atrial fibrillation noted on telemetry so far this admission; she has remained in NSR. Patient may benefit from repeat Zio patch monitoring. Patient is on DAPT given history of left main coronary artery stenting - continue. Chronic HFpEF, Aortic Stenosis S/P TAVR & HTN: Updated TTE pending for stroke work-up; no evidence of fluid overload on exam. No chest pain on evaluation. Previous ALMA from 05/2023 --> LVEF of 55 to 59%, no LV segmental wall motion abnormalities. BP stable. Continue metoprolol tartrate 50mg BID, ASA 81mg daily and atorvastatin 40mg daily. DVT Prophylaxis: SQ Heparin Code Status: FULL CODE PCP: Gregory Rausch MD Disposition: Currently admitted in Med/Telemetry; PT/OT recommending return home with services - CM assisting with this. Patient seen in collaboration with Dr. Barrera. Please see addendum. I spent a total of 50 minutes coordinating, documenting, and providing care for this patient excluding time spent in the performance of separately billed services. This included personally reviewing all current laboratories and imaging studies, medical reconciliation, outpatient chart review and discussion with specialists. This chart was completed in part utilizing Speech Voice Recognition Software. Grammatical errors, random word insertions, pronoun errors, and incomplete sentences are an occasional consequence of this system due to software limitations, ambient noise, and hardware issues. Any formal questions or concerns about the content, text, or information contained within the body of th is dictation should be directly addressed to the provider for clarification. Admission and Anticipated Discharge Date Admission Date: October 01, 2024 Subjective Patient seen and examined in room N277-1. I had been messaged via TT by the patient's RN, Kathrine Clarke, around 8:30AM this morning as the patient was experiencing expressive aphasia. This had resolved by the time I saw the patient shortly after receiving the TT. Her speech was clear and her neurological exam was benign. Patient has been experiencing intermittent episodes of word finding difficulty and slurred speech since Sunday which prompted her to come into the ED for evaluation yesterday. Patient reports that she had an episode of expressive aphasia last night around 9PM which resolved in only a few minutes. She had not experienced any recurrence of until this morning. Patient was agreeable with getting a repeat head CT as a precaution. Prior head CT on admission was unremarkable as well as brain MRI. Review of Systems Review of Systems: At least ten systems reviewed and negative, except as noted in the subjective section. Physical Exam Physical Exam: General: WD/WN, NAD, sitting up in bed, pleasant, conversing easily + appropriately. A+Ox3, euthymic affect. HEENT: Normocephalic, atraumatic. Conjunctivae normal. External ear and nose normal, oropharynx normal. Respiratory: Normal respiratory effort, lungs clear to auscultation, no wheeze/rales/rhonchi. No accessory muscle use. Cardiovascular: Regular rate, rhythm, normal peripheral pulses, no BLE edema. Vessels: No JVD. Abdomen/GI: Normal bowel sounds, soft, nondistended, nontender to palpation in all quadrants. Extremities/Musculoskeletal: No cyanosis or clubbing, extremities motor strength intact, moves all extremities. Neurologic: No overt focal deficits, CN's II-XI not formally tested but appear grossly intact bilaterally. Results & Data Results & Data Vital Signs (Past 12 Hours) Vital Signs Temp Pulse Pulse Resp BP BP Pulse Ox 10/02/24 07:15 91 H 10/02/24 03:44 36.4 C L 66 16 137/67 95 10/01/24 23:11 70 10/01/24 22:45 36.7 C 64 18 169/71 H 98 10/01/24 22:40 10/01/24 22:40 36.7 C 64 18 169/71 H 98 10/01/24 21:01 69 16 167/96 H 95 10/01/24 20:02 75 18 126/65 93 O2 Del Method 10/02/24 07:15 10/02/24 03:44 Room Air 10/01/24 23:11 10/01/24 22:45 Room Air 10/01/24 22:40 Room Air 10/01/24 22:40 Room Air 10/01/24 21:01 Room Air 10/01/24 20:02 Room Air Laboratory Results Short CBC 10/01/24 10/01/24 10/02/24 Range/Units 15:52 16:31 06:33 WBC Cancelled 8.52 8.72 Hgb Cancelled 13.4 13.2 Hct Cancelled 37.2 38.3 Plt Count Cancelled 125 L 140 BMP 10/01/24 10/02/24 15:52 06:33 Sodium 130 L 132 L Potassium 4.1 4.4 Chloride 93 L 93 L Carbon Dioxide 30 34 H BUN 19 17 Creatinine 1.14 1.08 Glucose 471 H* 438 H* Calcium 10.0 10.0 Liver Function 10/01/24 Range/Units 15:52 Total Bilirubin 0.7 (0.2-1.0) mg/dl AST 12 L (13-39) U/L ALT 10 (7-52) U/L Alkaline Phosphatase 80 (34-104) U/L Albumin 4.0 (3.4-5.0) gm/dl Urine 10/02/24 Range/Units 02:43 Urine Color Yellow Urine Appearance Clear (Clear) Urine pH 7.0 (4.5-7.5) Ur Specific [place] 1.024 (1.000-1.030) Urine Protein Negative (Negative) Urine Glucose (UA) Trace H (Negative) Diagnostic Findings Chest X-Ray 10/01/24 15:27 EXAM: X-ray chest one-view portable CLINICAL HISTORY: Stroke alert PRIORS: 11/09/2023 TECHNIQUE: AP upright chest FINDINGS: Median sternotomy wires present and postsurgical change of the heart, unchanged. The chest is well-expanded. No airspace consolidation, effusion or congestive changes. Heart size is top normal. No pneumothorax. Trachea is patent. Osseous structures demonstrate no acute abnormality. No radiopaque foreign body. IMPRESSION: No plain film evidence of an acute cardiopulmonary process. Electronically signed by Yanna Sagastume 10-01-2024 4:[address] 10/01/24 15:27 CT head/brain wo con CLINICAL HISTORY: Neuro deficit, acute, stroke suspected Technique: Contiguous axial CT images of the head were acquired from the base of the skull to the vertex without intravenous contrast administration. Images were viewed in brain, subdural and bone windows. Automated dose lowering techniques and/or adjustment according to patient size were utilized for this exam. Comparison: Comparison is made to CT head 11/09/2023 Findings: The ventricles, basal cisterns, and cerebral sulci are normal. There is no acute intracranial hemorrhage or evidence of acute territorial infarction. Neither mass effect, shift of the midline structures, nor abnormal extra-axial fluid collections are shown. Imaged portions of the paranasal sinuses and mastoid air cells are clear. The orbits appear normal. There are no acute fractures of the calvaria or scalp swelling. Impression: No acute intracranial hemorrhage, no evidence of acute territorial infarction or other acute intracranial disease process. ACT 112: Negative or not required by law. Electronically signed by: Wilmer Saunders M.D. 10/01/2024 3:53 PM Brain MRI 10/01/24 18:12 Exam(s): MRI HEAD Without Contrast EXAM: MR Head Without Intravenous Contrast CLINICAL HISTORY: Reason for exam: stroke like sx. TECHNIQUE: Magnetic resonance images of the head/brain without intravenous contrast in multiple planes. COMPARISON: CT head 10/01/24; MRI brain 06/05/23 FINDINGS: Brain: No diffusion restriction to suggest acute cerebral ischemia. No evidence of acute intracranial hemorrhage. Subtle gyriform hemosiderin staining in the right frontal region (series 6, image 18) may represent old hemorrhage. Generalized parenchymal volume loss. Minimal periventricular deep cerebral white matter FLAIR signal hyperintensity suggesting minimal chronic small vessel ischemic change. Proximal intracranial flow voids appear normal. Ventricles: Unremarkable. No hydrocephalus. Bones/joints: Unremarkable. No acute fracture. Sinuses: Unremarkable as visualized. Mastoid air cells: Right mastoid effusion. Orbits: Lens replacements. IMPRESSION: No acute findings in the head/brain. Electronically signed by: Mere Rojas M.D. 10/01/24 22:19 PM Head CTA 10/01/24 18:12 Exam(s): CTA HEAD With Contrast IV Amt: 118 ml optiray 320 EXAM: CT Angiography Head With Intravenous Contrast CLINICAL HISTORY: Reason for exam: stroke like sx. TECHNIQUE: Axial computed tomographic angiography images of the head with intravenous contrast. CTDI is 20.76 mGy and DLP is 458.33 mGy-cm. Automated exposure control was utilized for the study. A dose lowering technique was utilized adhering to the principles of ALARA. MIP reconstructed images were created and reviewed. CONTRAST: Patient received 118 ml optiray 320 of IV contrast COMPARISON: Same day CT, MRI FINDINGS: Right internal carotid artery: No acute findings. Intracranial segment is patent with no significant stenosis. No aneurysm. Right anterior cerebral artery: Unremarkable. No occlusion or significant stenosis. No aneurysm. Right middle cerebral artery: Unremarkable. No occlusion or significant stenosis. No aneurysm. Right posterior cerebral artery: Unremarkable. No occlusion or significant stenosis. No aneurysm. Right vertebral artery: Right vertebral artery terminates in PICA, a developmental variant. Left internal carotid artery: No acute findings. Intracranial segment is patent with no significant stenosis. No aneurysm. Left anterior cerebral artery: Unremarkable. No occlusion or significant stenosis. No aneurysm. Left middle cerebral artery: Unremarkable. No occlusion or significant stenosis. No aneurysm. Left posterior cerebral artery: Unremarkable. No occlusion or significant stenosis. No aneurysm. Left vertebral artery: Unremarkable as visualized. Basilar artery: Unremarkable. No occlusion or significant stenosis. No aneurysm. IMPRESSION: Patent intracranial circulation. Electronically signed by: Mere Rojas M.D. 10/01/24 22:49 PM Neck CTA 10/01/24 18:12 Exam(s): CTA NECK With Contrast IV Amt: 118 ml optiray 320 EXAM: CT Angiography Neck With Intravenous Contrast CLINICAL HISTORY: Reason for exam: stroke like sx. TECHNIQUE: Routine carotid CT angiography protocol was performed with intravenous contrast. NASCET criteria using the distal ICAs for comparison were used for evaluation of stenoses. CTDI is 20.76 mGy and DLP is 4558.33 mGy-cm. Automated exposure control was utilized for the study. A dose lowering technique was utilized adhering to the principles of ALARA. MIP reconstructed images were created and reviewed. CONTRAST: Patient received 118 ml optiray 320 of IV contrast COMPARISON: None. FINDINGS: VASCULATURE: Right common carotid artery: Unremarkable. No occlusion or significant stenosis. No dissection. Right internal carotid artery: Calcific plaque proximal right ICA without significant stenosis. No dissection. Right external carotid artery: Unremarkable. No occlusion. Right vertebral artery: Unremarkable. No occlusion or significant stenosis. No dissection. Left common carotid artery: Unremarkable. No occlusion or significant stenosis. No dissection. Left internal carotid artery: Calcific plaque proximal left ICA without significant stenosis. No dissection. Left external carotid artery: Unremarkable. No occlusion. Left vertebral artery: Unremarkable. No occlusion or significant stenosis. No dissection. Aorta: Conventional aortic arch branch anatomy. NECK: Bones/joints: Unremarkable. No acute fracture. Soft tissues: Unremarkable. Thyroid: Subcentimeter left thyroid lobe nodule; no follow-up indicated based on size criteria. Lung apices: Clear. CAROTID STENOSIS REFERENCE USING NASCET CRITERIA: % ICA stenosis = (1 - narrowest ICA diameter/diameter of distal cervical ICA) x 100. Mild - <50% stenosis. Moderate - 50-69% stenosis. Severe - 70-94% stenosis. Near occlusion - 95-99% stenosis. Occluded - 100% stenosis. IMPRESSION: No dissection, hemodynamically significant stenosis, or occlusion. Electronically signed by: Mere Rojas M.D. 10/01/24 22:[address] 10/02/24 08:50 CT head/brain wo con CLINICAL HISTORY: Expressive aphasia, word finding difficulty. TECHNIQUE: Multiple axial CT images of the head were obtained without contrast. A dose lowering technique was utilized adhering to the principles of ALARA. CT DOSE: 625.8 mGy.cm COMPARISON: 10/01/2024 FINDINGS: No intracranial hemorrhage seen. There is stable mild prominence of the ventricles out of proportion to the sulci, mild cerebral atrophy versus mild normal pressure hydrocephalus. Stable mild chronic small vessel ischemic changes. No mass effect or midline shift. No skull fracture. Visualized paranasal sinuses and mastoid air cells are clear. IMPRESSION: Stable exam. No acute findings. ACT 112: Negative or not required by law. The above report was generated using voice recognition software. It may contain grammatical, syntax or spelling errors. Electronically signed by: Kal Quintana M.D. 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
[2024-10-02 07:42] LABS: BUN Creatinine Ratio 15.7 (10-20); Chol HDL Ratio 4.1 (0-5); Creatinine Clr Calc Pharmacy 44.6 ml/min; Potassium 4.4 mmol/L (3.5-5.1)
--- NOTE | 2024-10-02 07:56 | Electrocardiogram Report ---
Test Reason : Blood Pressure : */* mmHG Vent. Rate : 85 BPM Atrial Rate : 85 BPM P-R Int : 194 ms QRS Dur : 102 ms QT Int : 388 ms P-R-T Axes : 6 -43 92 degrees QTcB Int : 461 ms Normal sinus rhythm Left axis deviation Left ventricular hypertrophy with repolarization abnormality ( R in aVL , Miguelangel product ) Possible Lateral infarct , age undetermined Abnormal ECG When compared with ECG of 09-Nov-2023 22:03, Premature atrial complexes are no longer Present QRS duration has increased Confirmed by Reji Galvin ([id number]) on 10/02/2024 7:55:44 AM Referred By: REFERRED SELF Confirmed By: Reji Galvin
[2024-10-02] MEDS ORDERED: LANTUS PER UNIT CHARGE SQ SCH ×2 (08:00→09:00)
[2024-10-02] MEDS ORDERED: NovoLIN-R INSULIN PER UNIT CHARGE SC STA (08:02)
[2024-10-02] MEDS: MULTIVITAMIN TAB PO SCH (08:26)
[2024-10-02] MEDS: ATORVASTATIN 40 MG TAB PO SCH (08:26)
[2024-10-02] MEDS: ASPIRIN 81 MG ECTAB PO SCH (08:26)
[2024-10-02] MEDS: CLOPIDOGREL BISULFATE 75 MG TAB PO SCH (08:27)
[2024-10-02] MEDS: DULoxetine HCL 20 MG CAP PO SCH (08:27)
[2024-10-02] MEDS: FLUTICASONE PROPIONATE NA SPR 16 GM BTL SCH (08:27)
[2024-10-02] MEDS: MAGNESIUM OXIDE 400 MG TAB PO SCH (08:28)
[2024-10-02] MEDS: LANTUS PER UNIT CHARGE SC SCH (08:59)
[2024-10-02] MEDS: INSULIN HUMAN REGULAR PER UNIT 10 UNITS in SYRINGE 9.9 ML IV ONE (09:03)
--- NOTE | 2024-10-02 10:02 | CT Scan Report ---
CT head/brain wo con CLINICAL HISTORY: Expressive aphasia, word finding difficulty. TECHNIQUE: Multiple axial CT images of the head were obtained without contrast. A dose lowering tech nique was utilized adhering to the principles of ALARA. CT DOSE: 625.8 mGy.cm COMPARISON: 10/01/2024 FINDINGS: No intracranial hemorrhage seen. There is stable mild prominence of the ventricles out of p roportion to the sulci, mild cerebral atrophy versus mild normal pressure hydrocephalus. Stable mild chronic small vessel ischemic changes. No mass effect or midline shift. No skull fracture. Visualized paranasal sinuses and mastoid air cells are clear. IMPRESSION: Stable exam. No acute findings. ACT 112: Negative or not required by law. The above report was generated using voice recognition software. It may contain grammatical, syntax o r spelling errors. Electronically signed by: Kal Quintana M.D. 10/02/2024 10:01 AM
--- NOTE | 2024-10-02 10:51 | Neurology Consultation ---
Date of Consultation October 02, 2024 Assessment & Plan (1) Stroke-like symptoms: Recurrent episodes of expressive aphasia No evidence of acute ischemic stroke Suspect possible stress reaction to recent/sudden loss of close friend Recommend provide behavior health resources as she reports she cannot discuss with her family Recommend continue to treat as TIA Continue frequent neurological assessments Obtain stat CT brain without contrast for any acute neurological decline Continue to monitor/control blood pressure & blood glucose Continue to monitor telemetry closely Recommend ZioPatch at DC if no evidence of arrhythmia during inpatient monitoring Continue to monitor renal and hepatic function, keep euvolemic Metabolic workup should include hgbA1c, fasting lipids, homocysteine, TSH, D Dimer, RPR, urinalysis Recommend DAPT for at least 3 weeks Recommend high dose statin therapy indefinitely if tolerated Ok from neurology perspective for VTE prophylaxis PT/OT/SLT to eval and treat Continue positive airway pressure mask at times of sleep Telehealth Consultation Telehealth Information Telehealth Information: I performed this visit using a real-time telehealth connection between my location and the patients location ([facility]). After connecting through interactive tele-video, patient was identified by name and date of and/or wristband check.Patient (or authorized healthcare warehouse representative) was informed that this was a telemedicine visit and it was being conducted confidentially over secure lines. My office door was closed and no one else was present in the room with me.Patient (or authorized healthcare warehouse representative) provided consent to proceed with the visit, expressed an understanding of privacy and security of the telemedicine visit, and gave permission to have a hospital warehouse representative in the room in order to assist with the visit and to conduct portions of the visit, as needed. I informed the patient (or authorized healthcare warehouse representative) that I reviewed their record and presented the opportunity for them to ask any questions regarding the visit today. The patient agreed to participate. History of Present Illness Reason for Consultation: Stroke like symptoms Requesting Physician: Dr. Barrera Attending Physician: Olu Barrera, History of Present Illness 63yo female with past medical hx significant for AFIB but reportedly not fully anticoagulated, also hx of aortic stenosis s/ TAVR, CAD s/p stenting, HF, HTN, hyperlipidemia DANYELLE and CKD as well as hx of neoplasm breast and colon presented with reported speech difficulty ongoing for a day or so prior to presentation. She reports slurred speech and features of expressive aphasia. She also reported some blurred vision/vision changes over the last 3-4 days prior to presentation as well. She has undergone emergent stroke imaging including CT brain without contrast, personally reviewed, revealing no overt evidence of hemorrhage. CT angiographic studies of head and neck, also personally reviewed, reveal no overt evidence of large vessel occlusion or significant/flow limiting stenosis. She has also undergone MRI brain without contrast revealing no evidence of ischemic stroke. I have performed televideo consultation. She is alert & oriented; able to answer all questions appropriately, name objects on televideo monitor, repeat phrases and perform complex/embedded commands without deficit. Neurological exam is non lateralizing/nonfocal in terms of motor strength and coordination. She notes that recently within about a month or so a close friend of hers . She is now taking care of his cat as they had discussed and she feels a bit overwhelmed. She reports her family did not like him so she cant talk about it with family. She denies SI/HI. Is able to express her grief and is interested in talking with someone further about it if there is available resources. Allergies Allergy/AdvReac Type Severity Reaction Status Date / Time glycerin Allergy Intermediate ITCHING, Verified 11/10/23 00:17 BURNING FROM TOPICALS lactose Allergy Intermediate Gastrointestinal Verified 11/10/23 00:17 Upset Penicillins Allergy Intermediate Rash Verified 11/10/23 00:17 adhesive tape AdvReac Intermediate CAN NOT Verified 11/10/23 00:17 TOLERATE BANDAIDS lisinopril AdvReac Intermediate Cough Verified 11/10/23 00:17 monosodium glutamate AdvReac Intermediate EDEMA OF Verified 11/10/23 00:17 HANDS & FEET Home Medications Medication Instructions Recorded Confirmed Type atorvastatin 40 mg tablet (Lipitor) 40 mg PO DAILY 05/02/19 10/01/24 History clopidogrel 75 mg tablet (Plavix) 75 mg PO DAILY 05/02/19 10/01/24 History levothyroxine 75 mcg tablet 75 mcg PO DAILY 05/02/19 10/01/24 History meclizine 25 mg tablet 50 mg PO BID 05/02/19 10/01/24 History magnesium oxide 400 mg PO DAILY 02/14/23 10/01/24 History trazodone 100 mg tablet 300 mg PO HS PRN Insomnia 02/14/23 10/01/24 History flash glucose scanning reader #1 ea 02/15/23 10/01/24 Rx (FreeStyle Keisha 2 [place]) ammonium lactate 12 % lotion 1 applic topical DAILY 06/03/23 10/01/24 History aspirin 81 mg tablet,delayed 81 mg PO DAILY 06/03/23 10/01/24 History release cranberry extract-vitamin C 250 2 cap PO TID 06/03/23 10/01/24 History mg-60 mg capsule (Azo Cranberry Plus Vit C) fluticasone propionate 50 2 spray intranasal DAILY 06/03/23 10/01/24 History mcg/actuation nasal spray,suspension insulin degludec 200 unit/mL (3 44 unit subcut DAILY 06/03/23 10/01/24 History mL) subcutaneous pen (Tresiba FlexTouch U-200 insulin) melatonin 10 mg tablet 10 mg PO HS 06/03/23 10/01/24 History multivitamin with minerals 1 tab PO DAILY 06/03/23 10/01/24 History nystatin 100,000 unit/gram topical 1 applic topical DIRECTED PRN 06/03/23 10/01/24 History powder Skin Irritation semaglutide 2 mg/dose (8 mg/3 mL) 2 mg subcut WK 06/03/23 10/01/24 History subcutaneous pen injector (Ozempic) Al hyd-Mg tr-alg ac-sod bicarb 80 1 tab PO DIRECTED PRN Gi Upset 10/27/23 10/01/24 History mg-14.2 mg chewable tablet (Gaviscon) insulin aspart U-100 100 unit/mL 24 unit subcut TIDM 50 UNITS/DAILY 10/27/23 10/01/24 History (3 mL) subcutaneous pen (Novolog FlexPen U-100 Insulin aspart) metoprolol tartrate 25 mg tablet 50 mg PO BID 10/27/23 10/01/24 History gabapentin 300 mg capsule 300 mg PO TID 06/05/24 10/01/24 History potassium chloride 10 mEq 10 meq PO BID 06/05/24 10/01/24 History tablet,extended release(part/cryst) (Klor-Con M) Lactobacillus acidophilus 1 1,000 mmu cells PO DAILY #30 caps 06/10/24 10/01/24 Rx billion cell capsule duloxetine 20 mg capsule,delayed 20 mg PO DAILY 10/01/24 10/01/24 History release topiramate 25 mg tablet 25 mg PO HS 10/01/24 10/01/24 History Patient History Medical History Asymptomatic bacteriuria Irritable bowel syndrome with diarrhea Failure of outpatient treatment C. difficile colitis Pancolitis Pancolitis C. difficile diarrhea Acute diarrhea DM II (diabetes mellitus, type II), controlled Diastolic congestive heart failure Atrial fibrillation with rapid ventricular response Aortic stenosis CAD (coronary artery disease) Dyslipidemia Colon cancer Acute hyperglycemia Hypomagnesemia Hypokalemia Intertrigo Chest pain Pulmonary embolism Altered mental status UTI (urinary tract infection) Pleuritic chest pain CKD (chronic kidney disease) stage 3, GFR 30-59 ml/min IDDM (insulin dependent diabetes mellitus) Uterine cancer 2014--sx, no chemo/radiation Breast cancer, right breast 2007--Sx, chemo/radiation Colon cancer 2004--sx, no chemo or radiation Liver cirrhosis non-alcoholic Hypothyroidism Diabetes mellitus, type 2 On anticoagulant therapy Cataract of both eyes Depression Anxiety Aortic valve stenosis Cardiac murmur Follows with Dr. Muniz Hyperlipidemia Hypertension Sleep apnea Cpap Depression with anxiety DANYELLE (obstructive sleep apnea) Hypothyroidism HTN (hypertension) Surgical History Presence of stent in coronary artery S/P TAVR (transcatheter aortic valve replacement) History of cardiac cath x2--2010 @ [facility] 07/2017 @ [facility]-no stent, follows with Dr. Muniz S/P foot surgery, right "foot was widening" History of section x4 H/O breast surgery L implant infected and was removed History of breast reconstruction Bilt breast after masectomy History of bilateral tubal ligation History of dilatation and curettage History of carpal tunnel release bilt History of colonoscopy History of esophagogastroduodenoscopy (EGD) History of total abdominal hysterectomy and bilateral salpingo-oophorectomy 2014 D/T uterine cancer H/O breast biopsy right--malignant H/O bilateral mastectomy 01/2008--breast cancer History of bowel resection [place] [facility] [place] d/t Colon Cancer History of appendectomy History of open heart surgery 2011 [place] [facility] [place] H/O aortic valve replacement 06/2017 [place] [facility] H/O aortic valve replacement #25 Manga aortic valve bioprosthesis placed in 2010, and in 2017 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 On 11/06/2017 she underwent transcatheter aortic valve replacement receiving a 26 mm Hernandez-Bing S3 prosthesis Family History Grandmother Family history of diabetes mellitus maternal Family/Other Family history of diabetes mellitus paternal aunt Father , of premature CAD Coronary heart disease Mother , of premature CAD Coronary heart disease Social History Smoking Status: Never smoker Second Hand Exposure: No; Do You Dip or Chew Tobacco: No; Hx Alcohol Use: No Hx Substance Use: No Preferred Language: Mauritanian Communication Ability: Effective Motion And Time Study Teacher Required: No Beliefs That Will Affect Care: None marital status: Single marital status details: has fiance Current Living Situation: Alone Current Living Situation Comment: Home alone Feels Safe at Home: Yes Assistive Devices: Cane and Walker Physical Exam Neurological Examination: Mental Status: Awake and alert. Oriented to person, place, and time. Fluency naming repetition and comprehension appear grossly intact. Affect remains appropriate. CN testing: I: Denies changes in ability to smell II:Reports no changes in visual acuity III/IV/: No evidence of gaze preference, hippus, nystagmus or roving eye movements V: Facial sensation reportedly grossly intact to light touch bilaterally VII: Facial movements appear without evidence of asymmetry VIII: Hearing appears grossly intact to loud voice bilaterally IX/X: Palate appears to elevate symmetrically XI: Shoulder shrug appears symmetric/ grossly intact bilaterally XII: Tongue protrudes midline without evidence of biting Motor exam: Strength appears grossly intact/symmetric in all extremities Sensory: Sensation is reportedly grossly intact throughout Coordination: Deferred Reflexes: Deferred Gait: Deferred Results & Data Vital Signs (Past 12 Hours) Vital Signs Temp Pulse Pulse Resp BP Pulse Ox O2 Del Method 10/02/24 08:10 Room Air 10/02/24 08:01 36.7 C 72 17 168/69 H 96 Room Air 10/02/24 07:15 91 H 10/02/24 03:44 36.4 C L 66 16 137/67 95 Room Air 10/01/24 23:11 70 Laboratory Results Abnormal lab results 10/01/24 10/01/24 10/01/24 Range/Units 15:52 15:58 16:31 MCV 79.3 L (80.0-100.0) fL Plt Count 125 L (130-400) K/uL Lymph # (Auto) (1.20-3.40) K/uL POC Sodium 130 L (135-144) mmol/L Sodium 130 L (136-145) mmol/L POC Chloride 93 L (101-112) mmol/L Chloride 93 L (98-107) mmol/L Carbon Dioxide (21-32) mmol/L POC Anion Gap 14.0 L (16-25) mmol/L POC BUN 21 H (7-18) mg/dl Glucose 471 H* (70-99(Fasting)) mg/dl POC Glucose (70-99) mg/dl POC Glucose (other) 459 H* (70-99) mg/dl Hemoglobin A1c (4.5-5.6) % AST 12 L (13-39) U/L Triglycerides (0-150) mg/dl VLDL Cholesterol, Calc (0-30) mg/dl Urine Glucose (UA) (Negative) Ur Leukocyte Esterase (Negative) Urine WBC (Auto) (0-5) /hpf U Epithel Cells (Auto) (0-2) /hpf Urine Bacteria (Auto) (None Seen) 10/01/24 10/01/24 10/02/24 Range/Units 19:31 23:12 02:43 MCV (80.0-100.0) fL Plt Count (130-400) K/uL Lymph # (Auto) (1.20-3.40) K/uL POC Sodium (135-144) mmol/L Sodium (136-145) mmol/L POC Chloride (101-112) mmol/L Chloride (98-107) mmol/L Carbon Dioxide (21-32) mmol/L POC Anion Gap (16-25) mmol/L POC BUN (7-18) mg/dl Glucose (70-99(Fasting)) mg/dl POC Glucose 253 H 158 H (70-99) mg/dl POC Glucose (other) (70-99) mg/dl Hemoglobin A1c (4.5-5.6) % AST (13-39) U/L Triglycerides (0-150) mg/dl VLDL Cholesterol, Calc (0-30) mg/dl Urine Glucose (UA) Trace H (Negative) Ur Leukocyte Esterase 2+ H (Negative) Urine WBC (Auto) 21-50 H (0-5) /hpf U Epithel Cells (Auto) 3-5 H (0-2) /hpf Urine Bacteria (Auto) 1+ H (None Seen) 10/02/24 10/02/24 10/02/24 Range/Units 06:33 08:16 08:17 MCV 79.6 L (80.0-100.0) fL Plt Count (130-400) K/uL Lymph # (Auto) 3.58 H (1.20-3.40) K/uL POC Sodium (135-144) mmol/L Sodium 132 L (136-145) mmol/L POC Chloride (101-112) mmol/L Chloride 93 L (98-107) mmol/L Carbon Dioxide 34 H (21-32) mmol/L POC Anion Gap (16-25) mmol/L POC BUN (7-18) mg/dl Glucose 438 H* (70-99(Fasting)) mg/dl POC Glucose 432 H* 409 H* (70-99) mg/dl POC Glucose (other) (70-99) mg/dl Hemoglobin A1c 10.5 H (4.5-5.6) % AST (13-39) U/L Triglycerides 330 H (0-150) mg/dl VLDL Cholesterol, Calc 66 H (0-30) mg/dl Urine Glucose (UA) (Negative) Ur Leukocyte Esterase (Negative) Urine WBC (Auto) (0-5) /hpf U Epithel Cells (Auto) (0-2) /hpf Urine Bacteria (Auto) (None Seen) 10/02/24 10/02/24 Range/Units 09:58 10:00 MCV (80.0-100.0) fL Plt Count (130-400) K/uL Lymph # (Auto) (1.20-3.40) K/uL POC Sodium (135-144) mmol/L Sodium (136-145) mmol/L POC Chloride (101-112) mmol/L Chloride (98-107) mmol/L Carbon Dioxide (21-32) mmol/L POC Anion Gap (16-25) mmol/L POC BUN (7-18) mg/dl Glucose (70-99(Fasting)) mg/dl POC Glucose 441 H* 415 H* (70-99) mg/dl POC Glucose (other) (70-99) mg/dl Hemoglobin A1c (4.5-5.6) % AST (13-39) U/L Triglycerides (0-150) mg/dl VLDL Cholesterol, Calc (0-30) mg/dl Urine Glucose (UA) (Negative) Ur Leukocyte Esterase (Negative) Urine WBC (Auto) (0-5) /hpf U Epithel Cells (Auto) (0-2) /hpf Urine Bacteria (Auto) (None Seen) Diagnostic Findings Chest X-Ray 10/01/24 15:27 EXAM: X-ray chest one-view portable CLINICAL HISTORY: Stroke alert PRIORS: 11/09/2023 TECHNIQUE: AP upright chest FINDINGS: Median sternotomy wires present and postsurgical change of the heart, unchanged. The chest is well-expanded. No airspace consolidation, effusion or congestive changes. Heart size is top normal. No pneumothorax. Trachea is patent. Osseous structures demonstrate no acute abnormality. No radiopaque foreign body. IMPRESSION: No plain film evidence of an acute cardiopulmonary process. Electronically signed by Yanna Sagastume 10-01-2024 4:[address] 10/01/24 15:27 CT head/brain wo con CLINICAL HISTORY: Neuro deficit, acute, stroke suspected Technique: Contiguous axial CT images of the head were acquired from the base of the skull to the vertex without intravenous contrast administration. Images were viewed in brain, subdural and bone windows. Automated dose lowering techniques and/or adjustment according to patient size were utilized for this exam. Comparison: Comparison is made to CT head 11/09/2023 Findings: The ventricles, basal cisterns, and cerebral sulci are normal. There is no acute intracranial hemorrhage or evidence of acute territorial infarction. Neither mass effect, shift of the midline structures, nor abnormal extra-axial fluid collections are shown. Imaged portions of the paranasal sinuses and mastoid air cells are clear. The orbits appear normal. There are no acute fractures of the calvaria or scalp swelling. Impression: No acute intracranial hemorrhage, no evidence of acute territorial infarction or other acute intracranial disease process. ACT 112: Negative or not required by law. Electronically signed by: Wilmer Saunders M.D. 10/01/2024 3:53 PM Brain MRI 10/01/24 18:12 Exam(s): MRI HEAD Without Contrast EXAM: MR Head Without Intravenous Contrast CLINICAL HISTORY: Reason for exam: stroke like sx. TECHNIQUE: Magnetic resonance images of the head/brain without intravenous contrast in multiple planes. COMPARISON: CT head 10/01/24; MRI brain 06/05/23 FINDINGS: Brain: No diffusion restriction to suggest acute cerebral ischemia. No evidence of acute intracranial hemorrhage. Subtle gyriform hemosiderin staining in the right frontal region (series 6, image 18) may represent old hemorrhage. Generalized parenchymal volume loss. Minimal periventricular deep cerebral white matter FLAIR signal hyperintensity suggesting minimal chronic small vessel ischemic change. Proximal intracranial flow voids appear normal. Ventricles: Unremarkable. No hydrocephalus. Bones/joints: Unremarkable. No acute fracture. Sinuses: Unremarkable as visualized. Mastoid air cells: Right mastoid effusion. Orbits: Lens replacements. IMPRESSION: No acute findings in the head/brain. Electronically signed by: Mere Rojas M.D. 10/01/24 22:19 PM Head CTA 10/01/24 18:12 Exam(s): CTA HEAD With Contrast IV Amt: 118 ml optiray 320 EXAM: CT Angiography Head With Intravenous Contrast CLINICAL HISTORY: Reason for exam: stroke like sx. TECHNIQUE: Axial computed tomographic angiography images of the head with intravenous contrast. CTDI is 20.76 mGy and DLP is 458.33 mGy-cm. Automated exposure control was utilized for the study. A dose lowering technique was utilized adhering to the principles of ALARA. MIP reconstructed images were created and reviewed. CONTRAST: Patient received 118 ml optiray 320 of IV contrast COMPARISON: Same day CT, MRI FINDINGS: Right internal carotid artery: No acute findings. Intracranial segment is patent with no significant stenosis. No aneurysm. Right anterior cerebral artery: Unremarkable. No occlusion or significant stenosis. No aneurysm. Right middle cerebral artery: Unremarkable. No occlusion or significant stenosis. No aneurysm. Right posterior cerebral artery: Unremarkable. No occlusion or significant stenosis. No aneurysm. Right vertebral artery: Right vertebral artery terminates in PICA, a developmental variant. Left internal carotid artery: No acute findings. Intracranial segment is patent with no significant stenosis. No aneurysm. Left anterior cerebral artery: Unremarkable. No occlusion or significant stenosis. No aneurysm. Left middle cerebral artery: Unremarkable. No occlusion or significant stenosis. No aneurysm. Left posterior cerebral artery: Unremarkable. No occlusion or significant stenosis. No aneurysm. Left vertebral artery: Unremarkable as visualized. Basilar artery: Unremarkable. No occlusion or significant stenosis. No aneurysm. IMPRESSION: Patent intracranial circulation. Electronically signed by: Mere Rojas M.D. 10/01/24 22:49 PM Neck CTA 10/01/24 18:12 Exam(s): CTA NECK With Contrast IV Amt: 118 ml optiray 320 EXAM: CT Angiography Neck With Intravenous Contrast CLINICAL HISTORY: Reason for exam: stroke like sx. TECHNIQUE: Routine carotid CT angiography protocol was performed with intravenous contrast. NASCET criteria using the distal ICAs for comparison were used for evaluation of stenoses. CTDI is 20.76 mGy and DLP is 4558.33 mGy-cm. Automated exposure control was utilized for the study. A dose lowering technique was utilized adhering to the principles of ALARA. MIP reconstructed images were created and reviewed. CONTRAST: Patient received 118 ml optiray 320 of IV contrast COMPARISON: None. FINDINGS: VASCULATURE: Right common carotid artery: Unremarkable. No occlusion or significant stenosis. No dissection. Right internal carotid artery: Calcific plaque proximal right ICA without significant stenosis. No dissection. Right external carotid artery: Unremarkable. No occlusion. Right vertebral artery: Unremarkable. No occlusion or significant stenosis. No dissection. Left common carotid artery: Unremarkable. No occlusion or significant stenosis. No dissection. Left internal carotid artery: Calcific plaque proximal left ICA without significant stenosis. No dissection. Left external carotid artery: Unremarkable. No occlusion. Left vertebral artery: Unremarkable. No occlusion or significant stenosis. No dissection. Aorta: Conventional aortic arch branch anatomy. NECK: Bones/joints: Unremarkable. No acute fracture. Soft tissues: Unremarkable. Thyroid: Subcentimeter left thyroid lobe nodule; no follow-up indicated based on size criteria. Lung apices: Clear. CAROTID STENOSIS REFERENCE USING NASCET CRITERIA: % ICA stenosis = (1 - narrowest ICA diameter/diameter of distal cervical ICA) x 100. Mild - <50% stenosis. Moderate - 50-69% stenosis. Severe - 70-94% stenosis. Near occlusion - 95-99% stenosis. Occluded - 100% stenosis. IMPRESSION: No dissection, hemodynamically significant stenosis, or occlusion. Electronically signed by: Mere Rojas M.D. 10/01/24 22:[address] 10/02/24 08:50 CT head/brain wo con CLINICAL HISTORY: Expressive aphasia, word finding difficulty. TECHNIQUE: Multiple axial CT images of the head were obtained without contrast. A dose lowering technique was utilized adhering to the principles of ALARA. CT DOSE: 625.8 mGy.cm COMPARISON: 10/01/2024 FINDINGS: No intracranial hemorrhage seen. There is stable mild prominence of the ventricles out of proportion to the sulci, mild cerebral atrophy versus mild normal pressure hydrocephalus. Stable mild chronic small vessel ischemic changes. No mass effect or midline shift. No skull fracture. Visualized paranasal sinuses and mastoid air cells are clear. IMPRESSION: Stable exam. No acute findings. ACT 112: Negative or not required by law. The above report was generated using voice recognition software. It may contain grammatical, syntax or spelling errors. Electronically signed by: Kal Quintana M.D. 10/02/2024 10:01 AM Medications Administered Home Medications Medication Instructions Recorded Confirmed Last Taken atorvastatin 40 mg tablet (Lipitor) 40 mg PO DAILY 05/02/19 10/01/24 11/09/23 clopidogrel 75 mg tablet (Plavix) 75 mg PO DAILY 05/02/19 10/01/24 11/09/23 levothyroxine 75 mcg tablet 75 mcg PO DAILY 05/02/19 10/01/24 11/09/23 meclizine 25 mg tablet 50 mg PO BID 05/02/19 10/01/24 11/09/23 08:00 magnesium oxide 400 mg PO DAILY 02/14/23 10/01/24 11/09/23 trazodone 100 mg tablet 300 mg PO HS PRN Insomnia 02/14/23 10/01/24 11/08/23 flash glucose scanning reader #1 ea 02/15/23 10/01/24 Unknown (FreeStyle Keisha 2 [place]) ammonium lactate 12 % lotion 1 applic topical DAILY 06/03/23 10/01/24 11/09/23 aspirin 81 mg tablet,delayed 81 mg PO DAILY 06/03/23 10/01/24 11/09/23 release cranberry extract-vitamin C 250 2 cap PO TID 06/03/23 10/01/24 11/09/23 mg-60 mg capsule (Azo Cranberry Plus Vit C) fluticasone propionate 50 2 spray intranasal DAILY 06/03/23 10/01/24 11/09/23 mcg/actuation nasal spray,suspension insulin degludec 200 unit/mL (3 44 unit subcut DAILY 06/03/23 10/01/24 11/08/23 mL) subcutaneous pen (Tresiba FlexTouch U-200 insulin) melatonin 10 mg tablet 10 mg PO HS 06/03/23 10/01/24 11/08/23 multivitamin with minerals 1 tab PO DAILY 06/03/23 10/01/24 11/09/23 nystatin 100,000 unit/gram topical 1 applic topical DIRECTED PRN 06/03/23 10/01/24 Unknown powder Skin Irritation semaglutide 2 mg/dose (8 mg/3 mL) 2 mg subcut WK 06/03/23 10/01/24 11/05/23 subcutaneous pen injector ([employer]) Al hyd-Mg tr-alg ac-sod bicarb 80 1 tab PO DIRECTED PRN Gi Upset 10/27/23 10/01/24 Unknown mg-14.2 mg chewable tablet (Gaviscon) insulin aspart U-100 100 unit/mL 24 unit subcut TIDM 50 UNITS/DAILY 10/27/23 10/01/24 11/09/23 (3 mL) subcutaneous pen (Novolog FlexPen U-100 Insulin aspart) metoprolol tartrate 25 mg tablet 50 mg PO BID 10/27/23 10/01/24 11/09/23 08:00 gabapentin 300 mg capsule 300 mg PO TID 06/05/24 10/01/24 Unknown potassium chloride 10 mEq 10 meq PO BID 06/05/24 10/01/24 Unknown tablet,extended release(part/cryst) (Klor-Con M) Lactobacillus acidophilus 1 1,000 mmu cells PO DAILY #30 caps 06/10/24 10/01/24 Unknown billion cell capsule duloxetine 20 mg capsule,delayed 20 mg PO DAILY 10/01/24 10/01/24 Unknown release topiramate 25 mg tablet 25 mg PO HS 10/01/24 10/01/24 Unknown Active Medications Generic Name Dose Route Start Last Admin Trade Name Freq PRN Reason Stop Dose Admin Aspirin 81 mg 10/02/24 09:00 10/02/24 08:26 Aspirin 81 Mg Ectab PO 11/01/24 08:59 81 mg DAILY EVGENY Administration Atorvastatin Calcium 40 mg 10/02/24 09:00 10/02/24 08:26 Atorvastatin 40 Mg Tab PO 11/01/24 08:59 40 mg DAILY EVGENY Administration Clopidogrel Bisulfate 75 mg 10/02/24 09:00 10/02/24 08:27 Clopidogrel Bisulfate 75 Mg Tab PO 11/01/24 08:59 75 mg DAILY EVGENY Administration Duloxetine HCl 20 mg 10/02/24 09:00 10/02/24 08:27 Duloxetine Hcl 20 Mg Cap PO 11/01/24 08:59 20 mg DAILY EVGENY Administration Fluticasone Propionate 2 sprays 10/02/24 09:00 10/02/24 08:27 Fluticasone Propionate Na Spr 16 Gm Btl NA 11/01/24 08:59 2 sprays DAILY EVGENY Administration Gabapentin 300 mg 10/01/24 23:00 10/02/24 08:24 Gabapentin 300 Mg Cap PO 10/31/24 22:59 300 mg TID EVGENY Administration Insulin Aspart 0 units 10/01/24 22:35 10/02/24 08:59 Insulin Aspart Per Unit Charge SC 10/31/24 22:34 53 units ACHS EVGENY Administration Insulin Glargine 55 units 10/02/24 09:00 10/02/24 08:59 Lantus Per Unit Charge SC 11/01/24 08:59 55 units DAILY EVGENY Administration Levothyroxine Sodium 75 mcg 10/02/24 06:30 10/02/24 05:37 Levothyroxine Sodium 75 Mcg Tablet PO 11/01/24 06:29 75 mcg DAILYBB EVGENY Administration Magnesium Oxide 400 mg 10/02/24 09:00 10/02/24 08:28 Magnesium Oxide 400 Mg Tab PO 11/01/24 08:59 400 mg DAILY EVGENY Administration Meclizine HCl 50 mg 10/01/24 23:00 10/02/24 08:25 Meclizine Hcl 25 Mg Tab PO 10/31/24 22:59 50 mg BID EVGENY Administration Metoprolol Tartrate 50 mg 10/01/24 23:00 10/02/24 08:26 Metoprolol Tartrate 50 Mg Tab PO 10/31/24 22:59 50 mg BID EVGENY Administration Multivitamins 1 tab 10/02/24 09:00 10/02/24 08:26 Multivitamin Tab PO 11/01/24 08:59 1 tab DAILY EVGENY Administration Potassium Chloride 10 meq 10/01/24 23:00 10/02/24 08:59 Potassium Chloride 10 Meq Tabcr PO 10/31/24 22:59 10 meq BID EVGENY Administration Topiramate 25 mg 10/01/24 23:00 10/01/24 23:21 Topiramate 25 Mg Tab PO 10/31/24 22:59 25 mg HS EVGENY Administration
--- NOTE | 2024-10-02 14:19 | Pharmacy Report ---
Pharmacy Glycemic Short Note 2 - Date of Service October 02, 2024 - Glycemic Short BSG Results (Last 24 hours): 10/01/24 10/01/24 10/01/24 15:52 15:58 19:31 Glucose 471 H* POC Glucose 253 H POC Glucose (other) 459 H* 10/01/24 10/02/24 10/02/24 23:12 06:33 08:16 Glucose 438 H* POC Glucose 158 H 432 H* POC Glucose (other) 10/02/24 10/02/24 10/02/24 08:17 09:58 10:00 Glucose POC Glucose 409 H* 441 H* 415 H* POC Glucose (other) 10/02/24 10/02/24 12:13 12:13 Glucose POC Glucose 324 H* 298 H POC Glucose (other) OUTPATIENT ANTIDIABETIC REGIMEN: * Aspart 24 u TID w/meals, insulin degludec 44 u daily, Ozempic 2 mg weekly * Last A1c on 10.02.24 was 10.5 ASSESSMENT: * 63 yo F w/PMH of CAD, HF, HLD, Afib, CKD, T2DM in which pharmacy was consulted for glycemic management. * Pt's BGS are very high with multiple readings in the 400s since yesterday, lowest one was been 158 so far this admission * Pt has a history from prior admissions requiring aggressive insulin dosing therefore will utilize CF of 10 and CR of 2 based on previous admissions * Pt received a IV insulin dose of 10 u yesterday and and again today for BSG in low 400s, in addition to a Lantus dose of 55 units and Novolog dose of 53 units all at the same time around 0900; BSG improved to 298 a few hours later PLAN FOR INPATIENT GLYCEMIC CONTROL: * Hold outpatient oral diabetes medications * Basal insulin * Lantus 55 units SQ BID * Bolus insulin * NovoLog per scale ACHS or Q6hrs while NPO * Goal Range: Low 110 mg/dL - High 140 mg/dL * Correction Factor: 10 mg/dL/unit * Nutritional / Prandial insulin per carb ratio of 1 unit per 2 grams CHO consumed
[2024-10-02] MEDS: cefTRIAXone SODIUM 1,000 MG/50 ML BAG IV SCH (15:58)
[2024-10-02] MEDS: ADVANCED PROBIOTIC 625 MG CAPSULE PO SCH (16:34)
[2024-10-02] MEDS: HEPARIN SOD 5,000 UNIT/0.5 ML VIAL SQ SCH (22:02)
[2024-10-03 07:00] LABS: Basophils # (auto) 0.05 K/uL (0.00-0.20); Basophils % (auto) 0.5 %; Eosinophils # (auto) 0.23 K/uL (0.00-0.50); Eosinophils % (auto) 2.3 %; Hematocrit (blood only) 41.6 % (37.0-47.0); Hemoglobin 14.3 g/dl (12.0-16.0); Immature Granulocytes # (auto) 0.04 K/uL (0.01-0.20); Immature Granulocytes % (auto) 0.4 %; Lymphocytes # (auto) 4.42 K/uL (1.20-3.40); Lymphocytes % (auto) 44.1 %; Mean Corpuscular Hemoglobin 27.6 pg (25.0-34.0); Mean Corpuscular Hgb Conc 34.4 g/dL (32.0-36.0); Mean Corpuscular Volume 80.3 fL (80.0-100.0); Mean Platelet Volume 10.7 fL (9.4-12.4); Monocytes # (auto) 0.64 K/uL (0.11-0.59); Monocytes % (auto) 6.4 %; Neutrophils # (auto) 4.64 K/uL (1.40-6.50); Neutrophils % (auto) 46.3 %; Platelet Count 143 K/uL (130-400); RDW Coefficient of Variation 13.4 % (11.5-14.5); RDW Standard Deviation 38.8 fL (36.4-46.3); Red Blood Count 5.18 M/uL (4.20-5.40); White Blood Count 10.02 K/ul (4.8-10.8)
[2024-10-03 07:20] LABS: BUN Creatinine Ratio 19.4 (10-20); Blood Urea Nitrogen 20 mg/dl (6-23); Calcium 9.5 mg/dl (8.6-10.3); Carbon Dioxide 28 mmol/L (21-32); Chloride 95 mmol/L (98-107); Creatinine Clr Calc Pharmacy 46.1 ml/min; Glucose 191 mg/dl (70-99(Fasting))
[2024-10-03 08:04] VITALS: RESP 16; O2SAT 95
[2024-10-03 11:12] VITALS: BP 119/72; TEMP 98.5
--- NOTE | 2024-10-03 12:01 | Discharge Summary ---
<Statement entered by Olu Barrera, - 10/03/24 14:19> I have seen and examined the patient and have discussed the case with the provider above. I have reviewed the advanced practitioner's documentation, and I agree with, and take responsibility for that plan of care. Patient seen prior to discharge. She denies any issues with her speech today now that her sugars are better controlled. Also learned that patient has had a fairly significant life event With the of a close friend recently. Suspect patient's symptoms more likely related to her severe hyperglycemia and possibly stress response to of her friend. Patient maximized on antiplatelet therapy already. No evidence of atrial fibrillation here on telemetry monitoring. Previous Zio patch and showed no atrial fibrillation. Would consider repeating Zio patch at some point in the near future Continue with outpatient management of her diabetes Patient can discuss with her PCP any additional treatment/counseling she would want for her grief response Additional discharge plan of care as outlined below Discharge Summary Date of Service October 03, 2024 Principal Dx & Hospital Course #1 = Principal Diagnosis (1) Stroke-like symptoms: (2) Hyperglycemia due to type 2 diabetes mellitus: (3) Paroxysmal A-fib: (4) Asymptomatic bacteriuria: Tammie Rose is a 63y/o F with PMHx significant for aortic stenosis s/p TAVR [2017], CAD s/p drug-eluting stent to LAD, HFpEF, DM type II, hypothyroidism, HLD, liver cirrhosis 2/2 LEYVA, HTN, questionable paroxysmal atrial fibrillation, DANYELLE intolerant to CPAP, CKD stage III, benign paroxysmal positional vertigo 2/2 bilateral vestibular disorder, schizoaffective disorder, history of breast cancer s/p bilateral mastectomies + chemoradiation [2007], history of colon cancer s/p colon resection, history of GI bleed, history of C. difficile infection and splenic infarcts who presented to the ED on 10/01/2024 for evaluation of word finding difficulty and slurred speech. She was managed for the following while admitted: Strokelike Symptoms - Intermittent Expressive Aphasia Uncontrolled Insulin-Dependent DM Type II, Hyperglycemia: Patient was loaded with aspirin 324mg in the ED prior to being admitted. Initial stroke evaluation including head CT, head/neck CTA and brain MRI were all negative with no evidence of acute findings. Echocardiogram was grossly unremarkable with LVEF of 55 to 60%, no regional wall motion abnormalities and no interatrial shunt. Patient's symptoms had initially resolved at the time of admission however she did experience 2 episodes of expressive aphasia during admission, most recently was yesterday morning. Repeat head CT at that time was unremarkable. Lipid panel with triglycerides 330, total cholesterol 126, LDL 29, VLDL 66 and HDL 31. Patient with known history of uncontrolled insulin- dependent DM type II. Patient has remained persistently hyperglycemic this admission, which certainly could have been a contributing cause to her strokelike symptoms. During the times where she was experiencing strokelike symptoms, the patient's BSG was well above 400. Her BSG prior to discharge today remained within the upper 100s to the upper 200s (which appears to be where she typically lies). Patient has had no recurrence of her symptoms since yesterday morning With her BSG being well below 400. Patient's hemoglobin A1c was 10.5% this admission. Patient was seen by the school vocational educator while admitted - recommended she continues her current outpatient diabetic medication regimen upon discharge. Patient follows with [facility] pharmacy already as an outpatient routinely make diabetic medication changes as needed. Telemetry remained benign this admission with no evidence of atrial fibrillation. Patient was evaluated by neurology while admitted. Suspect her strokelike symptoms may be also related to a possible stress reaction as a recent close friend of hers . Continue DAPT, statin - patient currently on optical medical management. Zio patch monitoring to be arranged by her PCP per neurology's recommendation as she had no evidence of arrhythmia during inpatient monitoring; need to evaluate for any underlying arrhythmic cause for her symptomatology. Questionable Paroxysmal Atrial Fibrillation, CAD S/P Stenting: Patient follows with [facility] [Dr. Muniz]. Of note, patient was previously admitted to [facility] in May 2023 and was found to have new-onset atrial fibrillation with rapid ventricular response. Patient was not previously anticoagulated at that time secondary to acute upper GI bleeding. She ultimately had to be transferred to [facility] at that time. She was incidentally noted to have splenic infarcts on imaging conducted at [facility] during her continued admission there amongst other things. Patient had Zio patch monitoring completed in September of last year to evaluate for occult atrial fibrillation sending splenic infarcts however this was negative for any evidence of atrial fibrillation - suspect this is as to why she was not placed on anticoagulation. No atrial fibrillation noted on telemetry this admission; she remained in NSR. Patient is on DAPT as per above given history of left main coronary artery stenting; however, she will need repeat Zio patch monitoring arranged by her PCP as per above to evaluate for any underlying evidence of atrial fibrillation. Patient may now certainly be a candidate for anticoagulation therapy given her comorbidities however she did not have any evidence of atrial fibrillation on telemetry this admission to warrant such prior to discharge. Asymptomatic Bacteriuria: UA on admission with 2+ LE, 21-50 WBC and 1+ bacteria. Patient was without any urinary complaints however she was empirically on IV Rocephin pending her urine culture results which ultimately came back negative therefore this ABX was stopped. Of note, patient has grown pansensitive E. coli, Klebsiella pneumoniae in the past. Chronic HFpEF, Aortic Stenosis S/P TAVR & HTN: Previous ALMA from 05/2023 --> LVEF of 55 to 59%, no LV segmental wall motion abnormalities. BP stable at time of discharge. Continue metoprolol tartrate 50mg BID, ASA 81mg daily and atorvast atin 40mg daily. Code Status: FULL CODE PCP: Gregory Rausch MD Disposition: Patient is being discharged home in stable condition with [facility] HH services as recommended by PT/OT. Patient seen in collaboration with Dr. Barrera. Please see addendum. I spent a total of 55 minutes coordinating, documenting, and providing care for this patient excluding time spent in the performance of separately billed services. This included personally reviewing all current laboratories and imaging studies, medical reconciliation, outpatient chart review and discussion with specialists. This chart was completed in part utilizing Speech Voice Recognition Software. Grammatical errors, random word insertions, pronoun errors, and incomplete sentences are an occasional consequence of this system due to software limitations, ambient noise, and hardware issues. Any formal questions or concerns about the content, text, or information contained within the body of this dictation should be directly addressed to the provider for clarification. Notes For Next Care Provider 1.) Patient will need Zio patch monitoring to evaluate for arrhythmias. 2.) Patient will also require close follow-up with the [facility] clinic for her DM type II. Medication Changes From Visit No medication changes were made this admission. Admission HPI Per Admitting Provider Jovita Rose is a 63y/o F with PMHx significant for aortic stenosis s/p TAVR [2017], CAD s/p drug-eluting stent to LAD, HFpEF, DM type II, hypothyroidism, HLD, liver cirrhosis 2/2 LEYVA, HTN, questionable paroxysmal atrial fibrillation, DANYELLE intolerant to CPAP, CKD stage III, benign paroxysmal positional vertigo 2/2 bilateral vestibular disorder, schizoaffective disorder, history of breast cancer s/p bilateral mastectomies + chemoradiation [2008], history of colon cancer s/p colon resection, history of GI bleed, history of C. difficile infection and splenic infarcts who presented to the ED ED secondary to difficulty speaking x 1 day. She is trying to say words and then she will slur them and they don't want to come out. She knows what she wants to say but occasionally has trouble getting in out. It has been going on for 1 day. She has had some vision changes over the past 3-4 days, especially when she tries to read. She also reports difficulty walking straight and feeling off balance. She does have a hx of diabetes and she reports checking her blood sugar today was in the 400s and yesterday it was in 180s. She denies any unilateral weakness, facial droop or numbness and tingling. She denies prior history of stroke. She denies any recent illness, fever, chills, sweats, lightheadedness, dizziness, chest pain, shortness of breath, nausea, vomiting or change in her bowel or urinary habits. In ED patient had a blood sugar of 471. Her initial head CT was negative for any acute intracranial abnormality. Admission Exam Per Admitting Provider Constitutional: WD/WN, vitals as above, NAD, sitting up in bed, pleasant, conversing easily Head: Normocephalic, Atraumatic Eyes: PERRL, conjunctivae normal, anicteric sclerae ENMT: external ear and nose normal, oropharynx normal Neck: trachea midline, no thyromegaly normal visual inspection Respiratory: normal respiratory effort, lungs clear to auscultation, no wheeze, rales, rhonchi. Normal insp/exp effort, no accessory muscle use Cardiovascular: RRR, no murmur, no edema Vessels: no JVD or carotid bruit Chest: normal inspection of chest Abdomen: normal bowel sounds, soft, nontender, no hepatosplenomegaly Musculoskeletal: no cyanosis or clubbing, AROM x 4 Skin: no rashes, warm and dry normal turgor Neurologic: no face palsy, no dysarthria CN's II-XI intact bilaterally and moves all extremities Psychiatric: A+Ox3, euthymic affect Lymphatic: no cervical or axillary lymphadenopathy : deferred Discharge Exam General: WD/WN, NAD, sitting up in bed, pleasant, conversing easily + appropriately. A+Ox3, euthymic affect. HEENT: Normocephalic, atraumatic. Conjunctivae normal. External ear and nose normal, oropharynx normal. Respiratory: Normal respiratory effort, lungs clear to auscultation, no wheeze/rales/rhonchi. No accessory muscle use. Cardiovascular: Regular rate, rhythm, normal peripheral pulses, no BLE edema. Vessels: No JVD. Abdomen/GI: Normal bowel sounds, soft, nondistended, nontender to palpation in all quadrants. Extremities/Musculoskeletal: No cyanosis or clubbing, extremities motor strength intact, moves all extremities. Neurologic: No overt focal deficits, CN's II-XI not formally tested but appear grossly intact bilaterally. Updated Medication List Medication Instructions Recorded Confirmed Type atorvastatin 40 mg tablet (Lipitor) 40 mg PO DAILY 05/02/19 10/01/24 History clopidogrel 75 mg tablet (Plavix) 75 mg PO DAILY 05/02/19 10/01/24 History levothyroxine 75 mcg tablet 75 mcg PO DAILY 05/02/19 10/01/24 History meclizine 25 mg tablet 50 mg PO BID 05/02/19 10/01/24 History magnesium oxide 400 mg PO DAILY 02/14/23 10/01/24 History trazodone 100 mg tablet 300 mg PO HS PRN Insomnia 02/14/23 10/01/24 History flash glucose scanning reader #1 ea 02/15/23 10/01/24 Rx (FreeStyle Keisha 2 [place]) ammonium lactate 12 % lotion 1 applic topical DAILY 06/03/23 10/01/24 History aspirin 81 mg tablet,delayed 81 mg PO DAILY 06/03/23 10/01/24 History release cranberry extract-vitamin C 250 2 cap PO TID 06/03/23 10/01/24 History mg-60 mg capsule (Azo Cranberry Plus Vit C) fluticasone propionate 50 2 spray intranasal DAILY 06/03/23 10/01/24 History mcg/actuation nasal spray,suspension insulin degludec 200 unit/mL (3 44 unit subcut DAILY 06/03/23 10/01/24 History mL) subcutaneous pen (Tresiba FlexTouch U-200 insulin) melatonin 10 mg tablet 10 mg PO HS 06/03/23 10/01/24 History multivitamin with minerals 1 tab PO DAILY 06/03/23 10/01/24 History nystatin 100,000 unit/gram topical 1 applic topical DIRECTED PRN 06/03/23 10/01/24 History powder Skin Irritation semaglutide 2 mg/dose (8 mg/3 mL) 2 mg subcut WK 06/03/23 10/01/24 History subcutaneous pen injector (Ozempic) Al hyd-Mg tr-alg ac-sod bicarb 80 1 tab PO DIRECTED PRN Gi Upset 10/27/23 10/01/24 History mg-14.2 mg chewable tablet (Gaviscon) insulin aspart U-100 100 unit/mL 24 unit subcut TIDM 50 UNITS/DAILY 10/27/23 10/01/24 History (3 mL) subcutaneous pen (Novolog FlexPen U-100 Insulin aspart) metoprolol tartrate 25 mg tablet 50 mg PO BID 10/27/23 10/01/24 History gabapentin 300 mg capsule 300 mg PO TID 06/05/24 10/01/24 History potassium chloride 10 mEq 10 meq PO BID 06/05/24 10/01/24 History tablet,extended release(part/cryst) (Klor-Con M) Lactobacillus acidophilus 1 1,000 mmu cells PO DAILY #30 caps 06/10/24 10/01/24 Rx billion cell capsule duloxetine 20 mg capsule,delayed 20 mg PO DAILY 10/01/24 10/01/24 History release topiramate 25 mg tablet 25 mg PO HS 10/01/24 10/01/24 History Hospital Stay Data Consultations 10/01/24 18:11 ED Decision to Admit Stat 10/01/24 18:12 Consult Neurology Routine Diagnostic Imagining Performed 10/01/24 15:27 CT head/brain wo con Stat 10/01/24 18:12 CT angio head w con Routine CT angio neck with con Routine MR brain wo con Routine 10/02/24 08:[address] [CT head/brain wo con] Urgent Discharge Instructions Given to Patient (Per Discharging Provider) Ms. Rose, you were admitted to [facility] for evaluation of strokelike symptoms. You underwent thorough neurological testing including head CT, head CTA, neck CTA and brain MRI which were all NEGATIVE for any evidence of an acute stroke. You also had an echocardiogram (ultrasound of the heart) completed which was unremarkable. You were also seen by the on-call neurologist via telemedicine. We suspect your strokelike symptoms may be related to episodes of hyperglycemia which you experienced upon presentation and during this admission. It can also be caused by stress as well. However, at the time when you are experiencing the symptoms, your blood sugar was well above 400. As was previously discussed with you at bedside, when your blood sugar levels are too high, it can cause a range of symptoms that may appear similar to those of a stroke. The symptoms can include things like weakness of one side of your body, difficulty speaking or problems with your vision. While this can seem concerning and might feel like youre having a stroke, its actually caused by your bodys response to very high blood sugar levels. If you were to experience such symptoms again however, it is recommended that you return to the emergency room for further work-up as anytime you experience strokelike symptoms you need to be urgently evaluated regardless. You have a follow-up appointment with Dr. Rausch at [facility] on 10/10/2024 @ 11:00AM. Please make sure to attend this appointment as scheduled! You will need to have repeat Zio patch monitoring done to monitor for any episodes of atrial fibrillation which increases your risk of stroke - this will be ordered by Dr. Rausch. Zio patch monitoring was strongly recommended by the on-call neurologist saw you while you were admitted. Continue to follow with the [facility] to help with management of your diabetes. NO changes were made to your home diabetic medications/insulin dosing. Urinalysis (urine test) on admission was concerning for infection however you were without any urinary complaints. We did empirically have you on an IV antibiotic to cover for potential infection but thankfully your urine culture was unremarkable and we were able to stop this antibiotic. There was no evidence of infection on further infectious work-up this admission. You were seen and evaluated by physical and occupational therapy while you are admitted whom recommended that you establish with home health services. You are being discharged home with [facility] Home Health Services. Seek medical attention if you have: * temperature above 101F * chest pain or trouble breathing * abdominal pain, nausea, vomiting * diarrhea, dark stools or bloody stools * any unanswered questions or concerns Call 911 if symptoms are severe. Please take good care of yourself! It has been a pleasure taking care of you. If you have any questions regarding your recent hospitalization please contact [facility] and request [facility] @ [phone]. Total Time Total Time Spent Total Time Spent (In Minutes): 55
[2024-10-03] MEDS ORDERED: STROKE PATIENT DISCHARGE STA (13:28)
--- NOTE | 2024-10-03 14:13 | Pharmacy Report ---
- Date of Service October 03, 2024 - Pharmacy CVA/TIA Medication Review Medications to Prevent Stroke handout has been added to the patients discharge packet. Antiplatelet(s) * DAPT for at least 3 weeks per neuro consult; pt ordered ASA and Plavix Cholesterol * High intensity statin: atorvastatin 40 mg daily DVT Prophylaxis * Is on heparin SC while hospitalized Therapeutic Anticoagulation * No Afib/Aflutter noted on telemetry this admission but AFib in question from previous admissions per chart, no anticoag at discharge per discharge summary but pt has a f/u appt w/cardiology to further assess this. Type 2 Diabetes * Patient has T2DM and patient is prescribed semaglutide
[2024-10-03 15:25] VITALS: PULSE 88
== END 2024-10-03 16:36 | disposition home health service (06) | DRG 638 ==
LOC: ED 15:18 → EDINP 18:07 → 2N 22:03

== ENCOUNTER 2024-10-07 12:01 | Inpatient (IN) ==
[2024-10-07 12:43] LABS: Basophils # (auto) 0.03 K/uL (0.00-0.20); Basophils % (auto) 0.2 %; Hematocrit (blood only) 38.3 % (37.0-47.0); Hemoglobin 13.3 g/dl (12.0-16.0); Immature Granulocytes # (auto) 0.14 K/uL (0.01-0.20); Mean Corpuscular Hemoglobin 28.1 pg (25.0-34.0); Mean Corpuscular Hgb Conc 34.7 g/dL (32.0-36.0); Monocytes # (auto) 0.73 K/uL (0.11-0.59); Monocytes % (auto) 5.3 %; Neutrophils % (auto) 88.5 %; Platelet Count 104 K/uL (130-400); RDW Coefficient of Variation 13.3 % (11.5-14.5); RDW Standard Deviation 39.2 fL (36.4-46.3); Red Blood Count 4.73 M/uL (4.20-5.40)
[2024-10-07] MEDS: SODIUM CHLORIDE 0.9% 500 ML IV ONE ×3 (12:57→14:51)
--- NOTE | 2024-10-07 13:05 | XRay Report ---
XR chest 1V portable CLINICAL HISTORY: weak TECHNIQUE: Single frontal radiograph of the chest was obtained. Comparison: Comparison is made to chest radiograph 10/01/2044 FINDINGS: Median sternotomy wires are unchanged. Calcified aortic knob is seen. Aortic valvular prosthesis is a gain seen. The lungs are clear. No evidence of pleural effusion or pneumothorax. IMPRESSION: No acute chest disease. ACT 112: Negative or not required by law. Electronically signed by: Wilmer Saunders M.D. 10/07/2024 1:03 PM
[2024-10-07 13:10] LABS: Albumin Globulin Ratio 1.2 (0.9-2); Albumin Level 3.6 gm/dl (3.4-5.0); BUN Creatinine Ratio 12.7 (10-20); Bilirubin,Total 0.9 mg/dl (0.2-1.0); Calcium 9.2 mg/dl (8.6-10.3); Creatinine Clr Calc Pharmacy 42.2 ml/min; Globulin 3.1 gm/dl (2.5-4.0); Magnesium 1.5 mg/dl (1.7-2.4); Phosphorus 3.2 mg/dl (2.5-4.9); Potassium 3.5 mmol/L (3.5-5.1); Total Protein 6.7 gm/dl (6.0-8.3)
--- NOTE | 2024-10-07 13:10 | Emergency Department Note ---
Impression & Plan Tachycardia, Acute hyperglycemia, Vomiting, Acute dehydration, Acute UTI, Leukocytosis, Hypomagnesemia, Elevated troponin ED Provider Note NAME: BRIGIDA ROCA AGE: 63 SEX: F : 1960 ARRIVES VIA: Ambulance INFORMANT: [Patient] ED PROVIDER(S): [Miquel Carson MD] CHIEF COMPLAINT: Hyperglycemia HISTORY OF PRESENT ILLNESS: The patient is a 63-year-old female who was discharged from our hospital 4 days ago. She had been admitted for strokelike symptoms thought secondary to a higher blood sugar. The patient today, was vomiting and her sugar was high. She states that she did not have any batteries for her glucose meter so she was not sure where sugar was running. Patient states that a nurse from [facility] evaluated her at the house today, because of her complaints, she was sent to the hospital for evaluation. Patient denies any respiratory complaints. No shortness of breath. No abdominal pain. No urinary complaints. He has not had fever. PMHx/PSHx/Social Hx: See Below PHYSICAL EXAM: GENERAL: Patient is in no acute distress. HEENT: No acute trauma, normocephalic atraumatic, mucous membranes dry, no nasal congestion. NECK: No stridor, no adenopathy, no meningismus, trachea is midline. LUNGS: Clear to auscultation bilaterally, no wheeze, no rhonchi, breath sounds equal. HEART: 3/6 systolic murmur, tachycardic, regular rhythm. ABDOMEN: Soft, nontender, no peritonitis. EXTREMITIES: No cyanosis, full range of motion of all the joints without pain or difficulty. NEUROLOGIC: Oriented x 3, no acute motor or sensory deficits, no focal weakness. SKIN: No jaundice, no diaphoresis. DIFFERENTIAL DIAGNOSIS: Hyperglycemia, DKA, dehydration, UTI, electrolyte imbalance, among others. EMERGENCY DEPARTMENT PROCEDURES: MEDICAL DECISION MAKING: There is a mild leukocytosis, this could be consistent with infection or just the stress of her situation. There was a normal hemoglobin. Platelet count somewhat low at 104. Sodium somewhat low at 131. No renal failure. Glucose was elevated over 400. Hemoglobin A1c was high at over 10. Magnesium was low at 1.5. No worrisome liver enzyme elevation. ECG showed a sinus tachycardia, no ischemia. Cardiac enzyme testing x 1 was slightly elevated. This troponin elevation could be secondary to the tachycardia alone or potentially cardiac injury. Of note, the patient does not have chest pain. Urinalysis shows glucose and dehydration. Infection was thought possible given the UA results. Chest x-ray did not show pneumonia or CHF. On exam, the patient was tachycardic, she was not toxic or febrile. The patient received IV saline, 1.5 L. She given IV magnesium, IV insulin and IV ceftriaxone. Given the persistent tachycardia, her vomiting, her UTI, her hyperglycemia and her recent hospital stay, I do think admission is warranted. I spoke with the patient and case management, the on-call hospitalist was consulted. Prior/Outside records/notes reviewed: Discharge summary note from 10/03/2023 discussing her presentation, hospital course and plan at discharge. ECG per my interpretation: Indication was tachycardia. The ECG shows a sinus tachycardia with a rate of 120. LVH was present. There is no acute ST elevation, there was a potential old inferior infarct. No PVCs. QTc was 534. Compared to an ECG from 11 October 2024, the rate has increased. The QTc has increased. Continuous Cardiac Monitoring per my interpretation: An order was placed for continuous cardiac monitoring. The monitor shows a rate of 122 with sinus tachycardia. Imaging/x-ray results per my interpretation: Chest x-ray does not show heart failure or pneumonia. Chronic Medical/Social conditions affecting care: History of diabetes and recent hospitalization. Care/Management discussed with: Case management, the on-call hospitalist. Level of care consideration(s): After review of the information above and other included data: --I believe the patient requires escalation of care to admission DISPOSITION: Admission Past Med/Surg History Problem List Elevated troponin (Acute) Hypomagnesemia (Acute) Leukocytosis (Acute) Acute UTI (Acute) Acute dehydration (Acute) Vomiting (Acute) Acute hyperglycemia (Acute) Tachycardia (Acute) Asymptomatic bacteriuria Pseudohyponatremia Abnormal urinalysis Stroke-like symptoms Gait instability (Acute) Dysarthria (Acute) Word finding difficulty (Acute) TIA (transient ischemic attack) (Acute) Stroke-like symptoms Hypomagnesemia (Acute) Weakness (Acute) Acute renal failure Electrolyte and fluid disorder Metabolic alkalosis Dizziness (Acute) Acute hypokalemia (Acute) Hypoxia (Acute) Acute hyponatremia (Acute) Perforated abdominal viscus Paroxysmal A-fib Respiratory failure Encephalopathy AMS (altered mental status) (Acute) Acute hyperglycemia (Acute) Elevated lactic acid level (Acute) UTI (urinary tract infection) (Acute) Positive blood culture Zoster Encephalitis Acute respiratory failure with hypoxia Thrombocytopenia Sepsis (Acute) Infectious encephalopathy (Acute) Pneumonia (Acute) Hypoxia (Acute) DVT prophylaxis Acute decompensated heart failure Metabolic encephalopathy Severe sepsis Herpes zoster History of percutaneous coronary intervention (Chronic) prior to TAVR in order to protect her left main, she also had a 3.5 x 23 millimeter drug-eluting stent placed in the left main/LAD, which was expanded out into the aorta. Encounter for pre-operative examination Heart murmur (Chronic) SOB (shortness of breath) Aortic valvar stenosis (Chronic) Cataract (Chronic) Heart failure (Chronic) History of removal of breast implant (Chronic) "Left " History of carpal tunnel surgery of left wrist (Chronic) TAVR 2018 History of carpal tunnel surgery of right wrist (Chronic) Previous section (Chronic) H/O colonoscopy (Chronic) S/P mastectomy, bilateral (Chronic) History of partial colectomy (Chronic) History of appendectomy (Chronic) History of hysterectomy with bilateral oophorectomy (Chronic) Medical History Irritable bowel syndrome with diarrhea Failure of outpatient treatment C. difficile colitis Pancolitis Pancolitis C. difficile diarrhea Acute diarrhea DM II (diabetes mellitus, type II), controlled Diastolic congestive heart failure Atrial fibrillation with rapid ventricular response Aortic stenosis CAD (coronary artery disease) Dyslipidemia Colon cancer Acute hyperglycemia Hypomagnesemia Hypokalemia Intertrigo Chest pain Pulmonary embolism Altered mental status UTI (urinary tract infection) Pleuritic chest pain CKD (chronic kidney disease) stage 3, GFR 30-59 ml/min IDDM (insulin dependent diabetes mellitus) Uterine cancer 2014--sx, no chemo/radiation Breast cancer, right breast 2007--Sx, chemo/radiation Colon cancer 2004--sx, no chemo or radiation Liver cirrhosis non-alcoholic Hypothyroidism Diabetes mellitus, type 2 On anticoagulant therapy Cataract of both eyes Depression Anxiety Aortic valve stenosis Cardiac murmur Follows with Dr. Muniz Hyperlipidemia Hypertension Sleep apnea Cpap Depression with anxiety DANYELLE (obstructive sleep apnea) Hypothyroidism HTN (hypertension) Surgical History Presence of stent in coronary artery S/P TAVR (transcatheter aortic valve replacement) History of cardiac cath x2--2010 @ [facility] 07/2017 @ [facility]-no stent, follows with Dr. Muniz S/P foot surgery, right "foot was widening" History of section x4 H/O breast surgery L implant infected and was removed History of breast reconstruction Bilt breast after masectomy History of bilateral tubal ligation History of dilatation and curettage History of carpal tunnel release bilt History of colonoscopy History of esophagogastroduodenoscopy (EGD) History of total abdominal hysterectomy and bilateral salpingo-oophorectomy 2014 D/T uterine cancer H/O breast biopsy right--malignant H/O bilateral mastectomy 01/2008--breast cancer History of bowel resection 2004 @ [facility] [place] d/t Colon Cancer History of appendectomy History of open heart surgery 2011 @ [facility] [place] H/O aortic valve replacement 06/2017 @ [facility] [place] H/O aortic valve replacement #25 Manga aortic valve bioprosthesis placed in 2010, and 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: No Beliefs That Will Affect Care: None marital status: Single marital status details: has fiance Current Living Situation: Alone Current Living Situation Comment: Home alone Feels Safe at Home: Yes Assistive Devices: Cane and Walker Allergies Allergies Allergy/AdvReac Type Severity Reaction Status Date / Time glycerin Allergy Intermediate ITCHING, Verified 11/10/23 00:17 BURNING FROM TOPICALS lactose Allergy Intermediate Gastrointestinal Verified 11/10/23 00:17 Upset Penicillins Allergy Intermediate Rash Verified 11/10/23 00:17 adhesive tape AdvReac Intermediate CAN NOT Verified 11/10/23 00:17 TOLERATE BANDAIDS lisinopril AdvReac Intermediate Cough Verified 11/10/23 00:17 monosodium glutamate AdvReac Intermediate EDEMA OF Verified 11/10/23 00:17 HANDS & FEET Home Meds Home Medications Medication Instructions Recorded Confirmed atorvastatin 40 mg tablet (Lipitor) 40 mg PO DAILY 05/02/19 10/01/24 clopidogrel 75 mg tablet (Plavix) 75 mg PO DAILY 05/02/19 10/01/24 levothyroxine 75 mcg tablet 75 mcg PO DAILY 05/02/19 10/01/24 meclizine 25 mg tablet 50 mg PO BID 05/02/19 10/01/24 magnesium oxide 400 mg PO DAILY 02/14/23 10/01/24 trazodone 100 mg tablet 300 mg PO HS PRN Insomnia 02/14/23 10/01/24 ammonium lactate 12 % lotion 1 applic topical DAILY 06/03/23 10/01/24 aspirin 81 mg tablet,delayed 81 mg PO DAILY 06/03/23 10/01/24 release cranberry extract-vitamin C 250 2 cap PO TID 06/03/23 10/01/24 mg-60 mg capsule (Azo Cranberry Plus Vit C) fluticasone propionate 50 2 spray intranasal DAILY 06/03/23 10/01/24 mcg/actuation nasal spray,suspension insulin degludec 200 unit/mL (3 44 unit subcut DAILY 06/03/23 10/01/24 mL) subcutaneous pen (Tresiba FlexTouch U-200 insulin) melatonin 10 mg tablet 10 mg PO HS 06/03/23 10/01/24 multivitamin with minerals 1 tab PO DAILY 06/03/23 10/01/24 nystatin 100,000 unit/gram topical 1 applic topical DIRECTED PRN 06/03/23 10/01/24 powder Skin Irritation semaglutide 2 mg/dose (8 mg/3 mL) 2 mg subcut WK 06/03/23 10/01/24 subcutaneous pen injector (Ozempic) Al hyd-Mg tr-alg ac-sod bicarb 80 1 tab PO DIRECTED PRN Gi Upset 10/27/23 10/01/24 mg-14.2 mg chewable tablet (Gaviscon) insulin aspart U-100 100 unit/mL 24 unit subcut TIDM 50 UNITS/DAILY 10/27/23 10/01/24 (3 mL) subcutaneous pen (Novolog FlexPen U-100 Insulin aspart) metoprolol tartrate 25 mg tablet 50 mg PO BID 10/27/23 10/01/24 gabapentin 300 mg capsule 300 mg PO TID 06/05/24 10/01/24 potassium chloride 10 mEq 10 meq PO BID 06/05/24 10/01/24 tablet,extended release(part/cryst) (Klor-Con M) duloxetine 20 mg capsule,delayed 20 mg PO DAILY 10/01/24 10/01/24 release topiramate 25 mg tablet 25 mg PO HS 10/01/24 10/01/24 Previous Rx's Medication Instructions Recorded flash glucose scanning reader #1 ea 02/15/23 (RunRev Keisha 2 [place]) Lactobacillus acidophilus 1 1,000 mmu cells PO DAILY #30 caps 06/10/24 billion cell capsule Results & Data (ED) Vital Signs Vital Signs - 24 hr 10/07/24 12:23 10/07/24 12:23 10/07/24 12:27 Temperature 37.5 C 37.5 C Temperature Source Oral Oral Pulse Rate 120 H 120 H Pulse Rate [Apical] 120 H Pulse Rhythm Regular Pulse Rhythm [Apical] Regular Pulse Strength Normal Pulse Strength [Apical] Normal Respiratory Rate 20 20 Respiratory Effort / Characteristics Non-Labored Spontaneous Non-Labored Spontaneous Respiratory Depth Normal Normal Respiratory Pattern Regular Regular Blood Pressure 179/88 H Blood Pressure [Right Arm] 179/88 H Blood Pressure Mean 118 Blood Pressure Mean [Right Arm] 118 Blood Pressure Position Semi-fowlers Blood Pressure Position [Right Arm] Semi-fowlers Pulse Oximetry 96 96 Oxygen Delivery Method Room Air Room Air Sepsis Recent Fever Within 48 Hours No Sepsis New/Unexplained Change in Mental Status No Sepsis Action Taken by Nursing No Action Required Home Medications Current Medication List: was personally reviewed by me Laboratory Data Attestation: I reviewed the patient's lab results. 10/07/24 12:20 10/07/24 12:20 Lab Results 10/07/24 10/07/24 10/07/24 Range/Units 12:11 12:20 12:58 WBC 13.90 H (4.8-10.8) K/ul RBC 4.73 (4.20-5.40) M/uL Hgb 13.3 (12.0-16.0) g/dl Hct 38.3 (37.0-47.0) % MCV 81.0 (80.0-100.0) fL MCH 28.1 (25.0-34.0) pg MCHC 34.7 (32.0-36.0) g/dL RDW Std Deviation 39.2 (36.4-46.3) fL RDW Coeff of Valerio 13.3 (11.5-14.5) % Plt Count 104 L (130-400) K/uL MPV 11.0 (9.4-12.4) fL Immature Gran % (Auto) 1.0 % Neut % (Auto) 88.5 % Lymph % (Auto) 5.0 % Refugio % (Auto) 5.3 % Eos % (Auto) 0.0 % Baso % (Auto) 0.2 % Neut # (Auto) 12.30 H (1.40-6.50) K/uL Lymph # (Auto) 0.70 L (1.20-3.40) K/uL Refugio # (Auto) 0.73 H (0.11-0.59) K/uL Eos # (Auto) 0.00 (0.00-0.50) K/uL Baso # (Auto) 0.03 (0.00-0.20) K/uL Immature Gran # (Auto) 0.14 (0.01-0.20) K/uL Sodium 131 L (136-145) mmol/L Potassium 3.5 (3.5-5.1) mmol/L Chloride 96 L (98-107) mmol/L Carbon Dioxide 24 (21-32) mmol/L Anion Gap 11 (3-11) BUN 14 (6-23) mg/dl Creatinine 1.10 (0.6-1.2) mg/dl Est Cr Clr Drug Dosing 42.2 ml/min eGFR 55.76 BUN/Creatinine Ratio 12.7 (10-20) Glucose 417 H* (70-99(Fasting)) mg/dl POC Glucose 414 H* (70-99) mg/dl Estimat Average Glucose 249 mg/dl Hemoglobin A1c 10.3 H (4.5-5.6) % Calcium 9.2 (8.6-10.3) mg/dl Phosphorus 3.2 (2.5-4.9) mg/dl Magnesium 1.5 L (1.7-2.4) mg/dl Total Bilirubin 0.9 (0.2-1.0) mg/dl AST 13 (13-39) U/L ALT 9 (7-52) U/L Alkaline Phosphatase 74 (34-104) U/L Troponin I High Sens 20.7 H (0-14) pg/ml Total Protein 6.7 (6.0-8.3) gm/dl Albumin 3.6 (3.4-5.0) gm/dl Globulin 3.1 (2.5-4.0) gm/dl Albumin/Globulin Ratio 1.2 (0.9-2) Urine Color Yellow Urine Appearance Clear (Clear) Urine pH 5.5 (4.5-7.5) Ur Specific [place] 1.028 (1.000-1.030) Urine Protein 1+ H (Negative) Urine Glucose (UA) 3+ H (Negative) Urine Ketones Trace H (Negative) Urine Blood Trace H (Negative) Urine Nitrite Negative (Negative) Urine Bilirubin Negative (Negative) Urine Urobilinogen Negative (Negative) Ur Leukocyte Esterase Trace H (Negative) Urine WBC (Auto) 11-20 H (0-5) /hpf Urine RBC (Auto) 0-2 (0-2) /hpf U Hyaline Cast (Auto) 3-5 H (0-2) /lpf U Epithel Cells (Auto) 6-10 H (0-2) /hpf Urine Bacteria (Auto) None Seen (None Seen) Administered Medications Discontinued Medications Sodium Chloride (Nss) 500 mls @ 999 mls/hr IV .Q31M ONE Stop: 10/07/24 13:11 Last Admin: 10/07/24 12:57 Dose: 999 mls/hr Documented By: CAW Magnesium Sulfate/Dextrose (Magnesium Sulfate / D5w) 1 gm in 100 mls @ 100 mls/hr IV NOW STA Stop: 10/07/24 14:10 Last Admin: 10/07/24 13:34 Dose: 100 mls/hr Documented By: CAW Sodium Chloride (Nss) 500 mls @ 999 mls/hr IV .Q31M ONE Stop: 10/07/24 13:42 Last Admin: 10/07/24 13:39 Dose: 999 mls/hr Documented By: CRISTINA Ceftriaxone Sodium (Rocephin) 2,000 mg in 50 mls @ 100 mls/hr IV NOW STA Stop: 10/07/24 14:19 Last Admin: 10/07/24 14:20 Dose: 100 mls/hr Documented By: CRISTINA Insulin Human Regular (Novolin-R Insulin Per Unit Charge) 10 units IV NOW STA Stop: 10/07/24 13:11 Last Admin: 10/07/24 13:34 Dose: 10 units Documented By: CRISTINA Co-signed By: ANGE Imaging Data Radiologist's Impression: Chest X-Ray 10/07/24 12:41 XR chest 1V portable CLINICAL HISTORY: weak TECHNIQUE: Single frontal radiograph of the chest was obtained. Comparison: Comparison is made to chest radiograph 10/01/2044 FINDINGS: Median sternotomy wires are unchanged. Calcified aortic knob is seen. Aortic valvular prosthesis is again seen. The lungs are clear. No evidence of pleural effusion or pneumothorax. IMPRESSION: No acute chest disease. ACT 112: Negative or not required by law. Electronically signed by: Wilmer Saunders M.D. 10/07/2024 1:03 PM Discharge Plan Visit Data Chief Complaint: Hyperglycemia ED Provider: Miquel Carson Discharge Problem: Tachycardia, Acute hyperglycemia, Vomiting, Acute dehydration, Acute UTI, Leukocytosis, Hypomagnesemia, Elevated troponin Patient Disposition: Admitted As Inpatient Condition: Fair Forms Stand Alone Forms: My [facility], Important Visit Information Prescriptions Prescriptions: No Action atorvastatin [Lipitor] 40 mg tablet 40 mg PO DAILY clopidogrel [Plavix] 75 mg tablet 75 mg PO DAILY levothyroxine 75 mcg tablet 75 mcg PO DAILY meclizine 25 mg tablet 50 mg PO BID trazodone 100 mg tablet 300 mg PO HS PRN (Reason: Insomnia) magnesium oxide 400 mg magnesium tablet 400 mg PO DAILY (DME) FreeStyle Keisha 2 [place] Misc See Rx Instructions .Route Qty: 1 0RF Rx Instructions: As directed ammonium lactate 12 % lotion 1 applic TOPICAL DAILY Rx Instructions: APPLY TO FEET aspirin 81 mg Tablet,Delayed Release (Dr/Ec) 81 mg PO DAILY nystatin 100,000 unit/gram Powder 1 applic TOPICAL DIRECTED PRN (Reason: Skin Irritation) multivitamin with minerals Tablet 1 tab PO DAILY fluticasone propionate 50 mcg/actuation Abrams,Suspension 2 spray INTRANASAL DAILY Rx Instructions: administer into each nostril cranberry extract-vitamin C [Azo Cranberry Plus Vit C] 250-60 mg Capsule 2 cap PO TID melatonin 10 mg Tablet 10 mg PO HS insulin degludec [Tresiba FlexTouch U-200] 200 unit/mL (3 mL) Insulin Pen 44 unit SUBCUT DAILY Ozempic 2 mg/dose (8 mg/3 mL) pen injector 2 mg SUBCUT WK Rx Instructions: MONDAYS topiramate 25 mg tablet 25 mg PO HS duloxetine 20 mg capsule,delayed release(DR/EC) 20 mg PO DAILY insulin aspart U-100 [Novolog FlexPen U-100 Insulin] 100 unit/mL (3 mL) Insulin Pen 24 unit subcut TIDM Rx Instructions: 2 UNITS PER 50 WHEN BSG IS OVER 200. metoprolol tartrate 25 mg tablet 50 mg PO BID Gaviscon 80-14.2 mg Tablet,Chewable 1 tab PO DIRECTED PRN (Reason: Gi Upset) gabapentin 300 mg capsule 300 mg PO TID potassium chloride [Klor-Con M10] 10 mEq tablet,ER particles/crystals 10 meq PO BID Lactobacillus acidophilus 1 billion cell capsule 1,000 mmu cells PO DAILY Qty: 30 0RF Referrals Referrals: Gregory Rausch MD [Primary Care Provider] - Discharge Problem: Vomiting Qualifiers: Vomiting type: unspecified Nausea presence: with nausea Qualified Code(s): R 11.2 - Nausea with vomiting, unspecified Leukocytosis Qualifiers: Leukocytosis type: unspecified Qualified Code(s): D72.829 - Elevated white blood cell count, unspecified
[2024-10-07 13:12] LABS: Troponin I High Sensitivity 20.7 pg/ml (0-14)
[2024-10-07 13:23] LABS: Estimated Average Glucose 249 mg/dl; Hemoglobin A1C 10.3 % (4.5-5.6)
[2024-10-07] MEDS: NovoLIN-R INSULIN PER UNIT CHARGE IV STA ×2 (13:34→15:17)
[2024-10-07] MEDS: MAGNESIUM SULFATE / D5W 1 GM/100 ML BAG IV STA (13:34)
[2024-10-07 13:40] LABS: Appearance Urine Clear (Clear); Bacteria Urine Automated None Seen (None Seen); Bilirubin Urine Negative (Negative); Blood Urine Trace (Negative); Color Urine Yellow; Glucose Urine UA 3+ (Negative); Ketones Urine Trace (Negative); Leukocyte Esterase Urine Trace (Negative); Nitrite Urine Negative (Negative); Protein Urine 1+ (Negative); RBC Urine Automated 0-2 /hpf (0-2); Specific Gravity Urine 1.028 (1.000-1.030); Urobilinogen Urine Negative (Negative); pH Urine 5.5 (4.5-7.5)
[2024-10-07] MEDS: cefTRIAXone SODIUM 2,000 MG/50 ML BAG IV STA (14:20)
--- NOTE | 2024-10-07 14:45 | History & Physical Report ---
Date of Service October 07, 2024 Assessment & Plan (1) Acute hyperglycemia: (2) Insulin dependent type 2 diabetes mellitus: (3) Sepsis: (4) Acute colitis: (5) Hypertensive urgency: (6) Abnormal urinalysis: (7) Prolonged QT interval: (8) Hypomagnesemia: (9) Elevated troponin: Plan Jovita Rose is a 63y/o F with PMHx significant for aortic stenosis s/p TAVR [2017], CAD s/p drug-eluting stent to LAD, HFpEF, DM type II, hypothyroidism, HLD, liver cirrhosis 2/2 LEYVA, HTN, questionable paroxysmal atrial fibrillation, DANYELLE intolerant to CPAP, CKD stage III, benign paroxysmal positional vertigo 2/2 bilateral vestibular disorder, schizoaffective disorder, history of breast cancer s/p bilateral mastectomies + chemoradiation [2007], history of colon cancer s/p colon resection, history of GI bleed, history of C. difficile infection and splenic infarcts who presented to the ED via EMS on 10/07/24 with multiple complaints including nausea/vomiting, hyperglycemia and diarrhea. Of note, patient was recently discharged from our service on 10/03/24; she was admitted with strokelike symptoms which were thought to be as a result of hyperglycemia ISO uncontrolled, insulin-dependent DM type II. Stroke work-up was completely unremarkable. She was discharged home with [facility] services following that admission. Acute Hyperglycemia ISO Uncontrolled Insulin-Dependent DMII: Patient with known history of uncontrolled insulin-dependent DMII. Patient's outpatient insulin regimen is 44U of insulin degludec daily and 24U of insulin aspart TIDM. Patient reports that she has been unable to monitor her BSG at home since her discharge last week as her glucometer was not working; patient does report though that she had been administering her insulin at home. Patient did NOT receive any insulin prior to presenting to the ED today. BSG upon presentation to the ED today was 417. Initial laboratory evaluation was negative for anion gap as well as hypercarbia. She was administered 10 units of Novolin-R in the ED with repeat BSG of 358 at the time of my evaluation around 5PM. Initial VBG revealed pH 7.32, pCO2 43 and HCO3 22; will repeat VBG in AM. Trace urine ketones on UA. Will check serum osmolality. No evidence of DKA or HHS on admission. Glycemic pharmacy consulted to arrange appropriate basal/bolus regimen 2/2 acute hyperglycemia ISO unc ontrolled insulin-dependent DMII. parent educator also consulted - patient without access to CGM at home following most recent admission therefore this will need to be arranged prior to discharge. Continue BSG checks Q2H for now. Hgb A1c 10.3% today - performed in the ED; Hgb A1c was 10.5% on 10/02/24. Pseudohyponatremia noted, corrected sodium ISO hyperglycemia = 139. Acute Colitis & Sepsis: Patient meets sepsis criteria 2/2 tachycardia, WBC>12k + evidence of diffuse colitis on CTAP. Patient with diarrhea x 2 days. CXR unremarkable. CTAP revealed diffuse colitis (no free air or abscess). Was initially on IV Rocephin due to concern for abnormal urinalysis as mentioned below however will transition to IV Zosyn at this time for broader coverage ISO GI source of infection. Check nasal MRSA swab. Lactate 2.5, procalcitonin negative. S/p 1.5L NSS in the ED; will continue NSS wide open for now. Reflex lactate pending. Blood cultures pending. Checking stool PCR, C. diff studies ISO diarrhea - contact precautions on board until these result. Hypertensive Urgency: BP was in the 180s/90s in the ED; she was administered 5mg IV hydralazine in the ED with only mild improvement to the 160s/70s. Patient notably tachycardic as well - likely 2/2 dehydration and hyperglycemia ISO sepsis. She did not take her metoprolol tartrate this morning prior to presenting to the ED. Patient is currently on metoprolol tartrate 50mg BID - will give dose now; can continue home dosing as previously scheduled otherwise. Did order PRN IV metoprolol tartrate 5mg Q6H for HR>110. Continuous telemetry monitoring on board. Abnormal Urinalysis: UA with trace LE, WBC 11-20 but no evidence of bacteria. S/p dose of IV Rocephin in the ED. She was initially started on IV Rocephin however we have transitioned her to IV Zosyn as per above 2/2 acute colitis. Patient has previously grown pansensitive E. coli, Klebsiella pneumoniae - Zosyn will cover for both pending urine culture results. Patient had asymptomatic bacteriuria last admission with a negative urine culture result. Prolonged QT Interval: QTc prolonged at 534ms on presenting EKG. Holding home trazodone, duloxetine and meclizine for now as these agents have a known side effect profile of prolonging the QT interval. Daily EKG x 2, continue to monitor QT interval. Avoid additional QT-prolonging agents as able. K+ on lower side of normal range at 3.5 upon presentation - ordered 40mEq po KCl ISO diarrhea/dehydration. Hypomagnesemia: Mag 1.5 upon presentation; repleted with 1g IV mag x 1 bag in the ED. Will give an additional 2g IV mag. Continue to monitor and manage electrolytes PRN. Elevated Troponin: Initial troponin 20.7; presenting EKG with no evidence of acute ST changes. Likely demand ischemia ISO acute illness and dehydration, however does appear somewhat chronically elevated. Will continue to trend trop Q6H x 3. EKG with chest pain PRN. Daily EKG x 2 as per above. Chronic HFpEF, Aortic Stenosis S/P TAVR, HTN: Previous ALMA from 05/2023 --> LVEF of 55 to 59%, no LV segmental wall motion abnormalities. Continue metoprolol tartrate 50mg BID as per above, ASA 81mg daily and atorvastatin 40mg daily. DVT Prophylaxis: SQ Heparin Code Status: FULL CODE PCP: Gregory Rausch MD Disposition: Admit to PCU/Telemetry for further inpatient evaluation and management. Patient seen in collaboration with Dr. Reaves. Please see addendum. I spent a total of 65 minutes coordinating, documenting, and providing care for this patient excluding time spent in the performance of separately billed services. This included personally reviewing all current laboratories and imaging studies, medical reconciliation, outpatient chart review and discussion with specialists. This chart was completed in part utilizing Speech Voice Recognition Software. Grammatical errors, random word insertions, pronoun errors, and incomplete sentences are an occasional consequence of this system due to software limitations, ambient noise, and hardware issues. Any formal questions or concerns about the content, text, or information contained within the body of this dictation should be directly addressed to the provider for clarification. History of Present Illness Chief Complaint: Nausea/Vomiting Primary Care Provider: Gregory Rausch MD Jovita Rose is a 63y/o F with PMHx significant for aortic stenosis s/p TAVR [2017], CAD s/p drug-eluting stent to LAD, HFpEF, DM type II, hypothyroidism, HLD, liver cirrhosis 2/2 LEYVA, HTN, questionable paroxysmal atrial fibrillation, DANYELLE intolerant to CPAP, CKD stage III, benign paroxysmal positional vertigo 2/2 bilateral vestibular disorder, schizoaffective disorder, history of breast cancer s/p bilateral mastectomies + chemoradiation [2008], history of colon cancer s/p colon resection, history of GI bleed, history of C. difficile i nfection and splenic infarcts who presented to the ED via EMS on 10/07/24 secondary to nausea/vomiting and hyperglycemia. History obtained from the patient, discussion with ED provider and associated chart review. Of note, patient was recently discharged from our service on 10/03/24; she was admitted with strokelike symptoms which were thought to be as a result of hyperglycemia ISO uncontrolled, insulin-dependent DM type II. Stroke work-up was completely unremarkable. She was discharged home with [facility] services following that admission. Patient is coming in today with nausea/vomiting since this morning as well as hyperglycemia. Patient's outpatient insulin regimen is 44U of insulin degludec daily and 24U of insulin aspart TIDM. Patient reports that she has been unable to monitor her BSG at home since her discharge last week as her glucometer was not working. Patient reportedly had a Dexcom G6 CGM prior to her previous admission however her caregiver was unable to locate another CGM at her house; patient does report though that she had been administering her insulin at home. Patient did not receive any insulin prior to presenting the ED today. BSG upon presentation to the ED today was 417. Initial laboratory evaluation was negative for anion gap as well as hypercarbia. Patient received 1.5L NSS in the ED. She also received 10 units of Novolin-R in the ED with repeat BSG of 358 at the time of my evaluation around 5PM. Patient has also been experiencing some diarrhea over the past 2 days without any abdominal pain. She denies any hematochezia or melena. Her appetite has been significantly decreased since being discharged last week. She endorses poor oral hydration status as well over the past few days. No reported fevers at home. She denies any SOB or chest pain. She does endorse the very mild nonproductive cough as well as clear sinus drainage. She denies any urinary issues such as dysuria or hematuria. Allergies Allergy/AdvReac Type Severity Reaction Status Date / Time glycerin Allergy Intermediate ITCHING, Verified 11/10/23 00:17 BURNING FROM TOPICALS lactose Allergy Intermediate Gastrointestinal Verified 11/10/23 00:17 Upset Penicillins Allergy Intermediate Rash Verified 11/10/23 00:17 adhesive tape AdvReac Intermediate CAN NOT Verified 11/10/23 00:17 TOLERATE BANDAIDS lisinopril AdvReac Intermediate Cough Verified 11/10/23 00:17 Home Medications Medication Instructions Recorded Confirmed Type atorvastatin 40 mg tablet (Lipitor) 40 mg PO DAILY 05/02/19 10/07/24 History clopidogrel 75 mg tablet (Plavix) 75 mg PO DAILY 05/02/19 10/07/24 History levothyroxine 75 mcg tablet 75 mcg PO DAILY 05/02/19 10/07/24 History meclizine 25 mg tablet 50 mg PO BID 05/02/19 10/07/24 History magnesium oxide 400 mg PO DAILY 02/14/23 10/07/24 History trazodone 100 mg tablet 300 mg PO HS PRN Insomnia 02/14/23 10/07/24 History flash glucose scanning reader #1 ea 02/15/23 10/07/24 Rx (Work4 Keisha 2 Rose) ammonium lactate 12 % lotion 1 applic topical DAILY 06/03/23 10/07/24 History aspirin 81 mg tablet,delayed 81 mg PO DAILY 06/03/23 10/07/24 History release cranberry extract-vitamin C 250 2 cap PO TID 06/03/23 10/07/24 History mg-60 mg capsule (Azo Cranberry Plus Vit C) fluticasone propionate 50 2 spray intranasal DAILY 06/03/23 10/07/24 History mcg/actuation nasal spray,suspension insulin degludec 200 unit/mL (3 44 unit subcut HS 06/03/23 10/09/24 History mL) subcutaneous pen (Tresiba FlexTouch U-200 insulin) melatonin 10 mg tablet 10 mg PO HS 06/03/23 10/07/24 History multivitamin with minerals 1 tab PO DAILY 06/03/23 10/07/24 History nystatin 100,000 unit/gram topical 1 applic topical DIRECTED PRN 06/03/23 10/07/24 History powder Skin Irritation semaglutide 2 mg/dose (8 mg/3 mL) 2 mg subcut WK 06/03/23 10/07/24 History subcutaneous pen injector (Ozempic) Al hyd-Mg tr-alg ac-sod bicarb 80 1 tab PO DIRECTED PRN Gi Upset 10/27/23 10/07/24 History mg-14.2 mg chewable tablet (Gaviscon) insulin aspart U-100 100 unit/mL 24 unit subcut TIDM 50 UNITS/DAILY 10/27/23 10/07/24 History (3 mL) subcutaneous pen (Novolog FlexPen U-100 Insulin aspart) metoprolol tartrate 25 mg tablet 50 mg PO BID 10/27/23 10/07/24 History gabapentin 300 mg capsule 300 mg PO TID 06/05/24 10/07/24 History potassium chloride 10 mEq 10 meq PO BID 06/05/24 10/07/24 History tablet,extended release(part/cryst) (Klor-Con M) Lactobacillus acidophilus 1 1,000 mmu cells PO DAILY #30 caps 06/10/24 10/07/24 Rx billion cell capsule duloxetine 20 mg capsule,delayed 20 mg PO DAILY 10/01/24 10/07/24 History release topiramate 25 mg tablet 25 mg PO HS 10/01/24 10/07/24 History Past Med/Surg History Problem List C. difficile colitis Hypertensive urgency Sinus tachycardia Prolonged QT interval Acute colitis Insulin dependent type 2 diabetes mellitus Elevated troponin (Acute) Hypomagnesemia (Acute) Leukocytosis (Acute) Acute UTI (Acute) Acute dehydration (Acute) Vomiting (Acute) Acute hyperglycemia (Acute) Tachycardia (Acute) Asymptomatic bacteriuria Pseudohyponatremia Abnormal urinalysis Stroke-like symptoms Gait instability (Acute) Dysarthria (Acute) Word finding difficulty (Acute) TIA (transient ischemic attack) (Acute) Stroke-like symptoms Hypomagnesemia (Acute) Weakness (Acute) Acute renal failure Electrolyte and fluid disorder Metabolic alkalosis Dizziness (Acute) Acute hypokalemia (Acute) Hypoxia (Acute) Acute hyponatremia (Acute) Perforated abdominal viscus Paroxysmal A-fib Respiratory failure Encephalopathy AMS (altered mental status) (Acute) Acute hyperglycemia (Acute) Elevated lactic acid level (Acute) UTI (urinary tract infection) (Acute) Positive blood culture Zoster Encephalitis Acute respiratory failure with hypoxia Thrombocytopenia Sepsis (Acute) Infectious encephalopathy (Acute) Pneumonia (Acute) Hypoxia (Acute) DVT prophylaxis Acute decompensated heart failure Metabolic encephalopathy Severe sepsis Herpes zoster History of percutaneous coronary intervention (Chronic) prior to TAVR in order to protect her left main, she also had a 3.5 x 23 millimeter drug-eluting stent placed in the left main/LAD, which was expanded out into the aorta. Encounter for pre-operative examination Heart murmur (Chronic) SOB (shortness of breath) Aortic valvar stenosis (Chronic) Cataract (Chronic) Heart failure (Chronic) History of removal of breast implant (Chronic) "Left " History of carpal tunnel surgery of left wrist (Chronic) TAVR 2018 History of carpal tunnel surgery of right wrist (Chronic) Previous section (Chronic) H/O colonoscopy (Chronic) S/P mastectomy, bilateral (Chronic) History of partial colectomy (Chronic) History of appendectomy (Chronic) History of hysterectomy with bilateral oophorectomy (Chronic) Medical History Irritable bowel syndrome with diarrhea Failure of outpatient treatment C. difficile colitis Pancolitis Pancolitis C. difficile diarrhea Acute diarrhea DM II (diabetes mellitus, type II), controlled Diastolic congestive heart failure Atrial fibrillation with rapid ventricular response Aortic stenosis CAD (coronary artery disease) Dyslipidemia Colon cancer Acute hyperglycemia Hypomagnesemia Hypokalemia Intertrigo Chest pain Pulmonary embolism Altered mental status UTI (urinary tract infection) Pleuritic chest pain CKD (chronic kidney disease) stage 3, GFR 30-59 ml/min IDDM (insulin dependent diabetes mellitus) Uterine cancer 2014--sx, no chemo/radiation Breast cancer, right breast 2007--Sx, chemo/radiation Colon cancer 2004--sx, no chemo or radiation Liver cirrhosis non-alcoholic Hypothyroidism Diabetes mellitus, type 2 On anticoagulant therapy Cataract of both eyes Depression Anxiety Aortic valve stenosis Cardiac murmur Follows with Dr. Muniz Hyperlipidemia Hypertension Sleep apnea Cpap Depression with anxiety DANYELLE (obstructive sleep apnea) Hypothyroidism HTN (hypertension) Surgical History Presence of stent in coronary artery S/P TAVR (transcatheter aortic valve replacement) History of cardiac cath x2--2010 @ [facility] 07/2017 @ [facility]-no stent, follows with Dr. Muniz S/P foot surgery, right "foot was widening" History of section x4 H/O breast surgery L implant infected and was removed History of breast reconstruction Bilt breast after masectomy History of bilateral tubal ligation History of dilatation and curettage History of carpal tunnel release bilt History of colonoscopy History of esophagogastroduodenoscopy (EGD) History of total abdominal hysterectomy and bilateral salpingo-oophorectomy 2014 D/T uterine cancer H/O breast biopsy right--malignant H/O bilateral mastectomy 01/2008--breast cancer [place] [facility] [place] Colon Cancer History of appendectomy History of open heart surgery [place] [facility] [place] aortic valve replacement [place] [facility] [place] H/O aortic valve replacement #25 Manga aortic valve bioprosthesis placed in 2010, and 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 On 11/06/2017 she underwent transcatheter aortic valve replacement receiving a 26 mm Hernandez-Bing S3 prosthesis Family History Grandmother Family history of diabetes mellitus maternal Family/Other Family history of diabetes mellitus paternal aunt Father , of premature CAD Coronary heart disease Mother , of premature CAD Coronary heart disease Social History Smoking Status: Never smoker Second Hand Exposure: No; Do You Dip or Chew Tobacco: No; Tobacco Cessation Education Requested by Patient: No Hx Alcohol Use: No Hx Substance Use: No Preferred Language: Occitan Communication Ability: Effective Graduate Teaching Assistant Required: No Beliefs That Will Affect Care: None marital status: Single marital status details: has fiance Current Living Situation: Alone Current Living Situation Comment: Home alone Other Information That Helps Us Care for You: No Feels Safe at Home: Yes Safety Concerns: Feels Safe At This Time Assistive Devices: Cane, CPAP and Walker Review of Systems Review of Systems: At least ten systems reviewed and negative, except as noted in the HPI. Physical Exam Physical Exam: Please refer to Dr. Reaves's addendum for physical examination findings. Results & Data Results & Data Vital Signs (Past 12 Hours) Vital Signs Temp Pulse Pulse Resp BP BP Pulse Ox 10/07/24 12:27 120 H 10/07/24 12:23 37.5 C 120 H 20 179/88 H 96 10/07/24 12:23 37.5 C 120 H 20 179/88 H 96 O2 Del Method 10/07/24 12:27 10/07/24 12:23 Room Air 10/07/24 12:23 Room Air Laboratory Results Short CBC 10/07/24 Range/Units 12:20 WBC 13.90 H (4.8-10.8) K/ul Hgb 13.3 (12.0-16.0) g/dl Hct 38.3 (37.0-47.0) % Plt Count 104 L (130-400) K/uL BMP 10/07/24 12:20 Sodium 131 L Potassium 3.5 Chloride 96 L Carbon Dioxide 24 BUN 14 Creatinine 1.10 Glucose 417 H* Calcium 9.2 Liver Function 10/07/24 Range/Units 12:20 Total Bilirubin 0.9 (0.2-1.0) mg/dl AST 13 (13-39) U/L ALT 9 (7-52) U/L Alkaline Phosphatase 74 (34-104) U/L Albumin 3.6 (3.4-5.0) gm/dl Urine 10/07/24 Range/Units 12:58 Urine Color Yellow Urine Appearance Clear (Clear) Urine pH 5.5 (4.5-7.5) Ur Specific [place] 1.028 (1.000-1.030) Urine Protein 1+ H (Negative) Urine Glucose (UA) 3+ H (Negative) Diagnostic Findings Chest X-Ray 10/07/24 12:41 XR chest 1V portable CLINICAL HISTORY: weak TECHNIQUE: Single frontal radiograph of the chest was obtained. Comparison: Comparison is made to chest radiograph 10/01/2044 FINDINGS: Median sternotomy wires are unchanged. Calcified aortic knob is seen. Aortic valvular prosthesis is again seen. The lungs are clear. No evidence of pleural effusion or pneumothorax. IMPRESSION: No acute chest disease. ACT 112: Negative or not required by law. Electronically signed by: Wilmer Saunders M.D. 10/07/2024 1:03 PM Medications Administered Discontinued Medications Sodium Chloride (Nss) 500 mls @ 999 mls/hr IV .Q31M ONE Stop: 10/07/24 13:11 Last Admin: 10/07/24 12:57 Dose: 999 mls/hr Documented By: CRISTINA Magnesium Sulfate/Dextrose (Magnesium Sulfate / D5w) 1 gm in 100 mls @ 100 mls/hr IV NOW STA Stop: 10/07/24 14:10 Last Admin: 10/07/24 13:34 Dose: 100 mls/hr Documented By: CRISTINA Sodium Chloride (Nss) 500 mls @ 999 mls/hr IV .Q31M ONE Stop: 10/07/24 13:42 Last Admin: 10/07/24 13:39 Dose: 999 mls/hr Documented By: CRISTINA Ceftriaxone Sodium (Rocephin) 2,000 mg in 50 mls @ 100 mls/hr IV NOW STA Stop: 10/07/24 14:19 Last Admin: 10/07/24 14:20 Dose: 100 mls/hr Documented By: CRISTINA Insulin Human Regular (Novolin-R Insulin Per Unit Charge) 10 units IV NOW STA Stop: 10/07/24 13:11 Last Admin: 10/07/24 13:34 Dose: 10 units Documented By: CRISTINA Co-signed By: KMO Code Status & VTE Plan Code Status FULL CODE Supervising Physician Co-Signing Physician Notes Attending Addendum: Case reviewed with the advanced practitioner. I have personally performed a history and physical examination on the patient. I have reviewed the advanced practitioner's documentation on the date of service referenced in note, and I agree with, and take responsibility for the plan of care. please refer to her notes for full details patient seen and examined, records reviewed by myself as well on exam, patient seen resting in bed, comfortable, not in distress States she feels tired, but otherwise feels okay Denies chest pain, shortness of breath, palpitations, dizziness, nausea/vomiting, abdominal pain No other new symptoms VS noted and reviewed orientedX 3 , not in distress, speaks in sentences with no effort nor accessory muscle use Tachycardic, regular rhythm, no murmurs clear breath sounds bilaterally non distended, soft, nontender no bipedal edema, erythema, warmth no neuro deficits all labs, imaging noted and reviewed ASSESSMENT AND PLAN> Hyperglycemia, diabetes type 2 Rule out UTI BSG in the 400 Not in HHS or DKA, no anion gap, acidosis Patient reports difficulty with blood sugar monitoring and insulin administration Pharmacy glycemic management service consulted Follow-up urine and blood cultures Empiric IV ceftriaxone other diagnoses and plan of care as per advanced practitioner's notes Sinus tachycardia Likely secondary to hyperglycemia, dehydration Will order IV NSS Management of hyperglycemia per above Prolonged QT interval Hold QT prolonging medications including duloxetine, trazodone, etc. Replace magnesium and potassium Monitor closely Wiliam Reaves MD (3) Sepsis Sepsis acute organ dysfunction status: unspecified Sepsis type: sepsis due to unspecified organism Qualified Code(s): A41.9 - Sepsis, unspecified organism
[2024-10-07] MEDS: hydrALAZINE HCL 20 MG/ML VIAL IV ONE (15:18)
[2024-10-07] MEDS ORDERED: DEXTROSE 50% 50 ML SYRINGE IV PRN (15:20)
[2024-10-07] MEDS ORDERED: GLUCOSE 40% GEL 15 GM TUBE PO PRN (15:20)
[2024-10-07] MEDS ORDERED: GLUCOSE 10 TAB/TUBE PO PRN (15:20)
[2024-10-07] MEDS ORDERED: PHARMACY GLYCEMIC MGMT CONSULT PRN (15:20)
[2024-10-07] MEDS ORDERED: CARBOHYDRATES FOR HYPOGLYCEMIA PO PRN (15:20)
[2024-10-07] MEDS ORDERED: GLUCAGON FOR INJ 1 MG VIAL SQ PRN (15:20)
[2024-10-07] MEDS ORDERED: LANTUS PER UNIT CHARGE SQ SCH (15:30)
[2024-10-07 15:47] LABS: Base Excess VBG -3.9 mEq/L; HCO3 VBG 22 mmol/L; Oxygen Saturation VBG < 60.0 %; PCO2 VBG 43 mmHg (38-50); PO2 VBG 37 mmHg; pH VBG 7.32 (7.36-7.41)
--- NOTE | 2024-10-07 17:24 | CT Scan Report ---
INDICATION: Diarrhea. COMPARISON: CT from 06/05/2024. TECHNIQUE: Axial CT images of the abdomen and pelvis were obtained without IV contrast administration. Coronal and sagittal reformations were reviewed. FINDINGS: Visualized lung bases appear unremarkable. Small left hepatic lobe cyst again noted. The gallbladder, spleen, pancreas and left adrenal gland appear unremarkable. Right adrenal gland lipid rich adenoma appears unchanged. Renal cysts again noted, no significant change. Nonobstructing 4 mm right renal calculus. Diffuse colonic wall thickening with adjacent inflammation. No evidence of bowel obstruction/appendicitis. No free air or abscess. No free air. No drainable fluid collection. The urinary bladder appears unremarkable. Phleboliths in the pelvis. No acute osseous abnormality evident. IMPRESSION: 1. Findings concerning for diffuse colitis. No free air or abscess. 2. Nonobstructing 2 mm right renal calculus. Electronically signed by Dada Ricks 10-07-2024 5:24 PM
[2024-10-07] MEDS ORDERED: MAGNESIUM HYDROXIDE SUSP 30 ML UDC PO PRN (17:40)
[2024-10-07] MEDS ORDERED: POLYETHYLENE (MIRALAX) 17 GM PACK PO PRN (17:40)
[2024-10-07] MEDS: METOPROLOL TARTRATE 50 MG TAB PO STA (18:08)
[2024-10-07] MEDS: ATORVASTATIN 40 MG TAB PO ONE (18:08)
[2024-10-07] MEDS: CLOPIDOGREL BISULFATE 75 MG TAB PO ONE (18:09)
[2024-10-07] MEDS: LEVOTHYROXINE SODIUM 75 MCG TABLET PO ONE (18:09)
[2024-10-07] MEDS: SODIUM CHLORIDE 0.9% 1,000 ML IV SCH (18:09)
[2024-10-07] MEDS ORDERED: METOPROLOL TARTRATE 1 MG/ML VIAL IV PRN (18:16)
[2024-10-07] MEDS: MAGNESIUM SULFATE / D5W 1 GM/100 ML BAG IV SCH (18:28)
[2024-10-07] MEDS: ACETAMINOPHEN 325 MG TAB PO PRN (18:29)
[2024-10-07] MEDS: INSULIN ASPART PER UNIT CHARGE SC SCH (18:38)
[2024-10-07] MEDS: LANTUS PER UNIT CHARGE SC SCH ×2 (18:46→21:53)
--- OUTSIDE RECORDS SUMMARY | 2024-10-07 19:00 | External Medical Summary | Summary of Care ---
Author Name Unknown Organization [facility] Address [address] [place] [address] Phone [phone] Care Team Providers Care Embroidery Assistant Name Role Phone Gregory Rausch MD Primary Care Provider [phone] Reason for Visit * Reason Onset Date Comments Follow Up 10/06/2024 Encounter Details Date Type Department Care Team (Late st Contact Info) Description 10/06/2024 Telephone Psychology [facility] [address] [place] [address] Jovita Aquino, [facility] [address] [place] [address] Follow Up Allergies Active Allergy Reactions Criticality Noted Date Comments Adhesive Tape 07/02/2017 Can tolerate band-aids Glycerin Other (Please comment) 03/12/2008 Topical agents with glycein-burning & itching Lactose 12/09/2014 Dairy - gas Lisinopril Cough 01/21/2010 Monosodium Glutamate Edema Other 03/12/2008 Hands and feet Penicillins Rash 11/14/2007 documented as of this encounter (statuses as of 10/06/2024) Medications aspirin enteric coated 81 MG TBECIndications:Ao [...] bedtime. 60 Tablet 08/12/20 24 Active Klayesta 946560 UNIT/GM External Powder (Nystatin)Indicati ons:Candidal intertrigo APPLY TOPICALLY TO AFFECTED AREA 3 TIMES A DAY 60 g 1 08/19/20 24 Active NovoLOG FlexPen 100 UNIT/ML Subcutaneous Solution Pen-injector (insulin aspart)Indications :Type 2 diabetes mellitus with hemoglobin A1c goal of less than 7.0% ([facility]) INJECTED UNDER THE SKIN BEFORE MEALS, 3 [...] Tablet 1 09/23/20 24 Active Omnipod 5 LcjH0G5 Pods Gen 5Indications:Type 2 diabetes mellitus with hemoglobin A1c goal of less than 8.0% ([facility]) Use as directed. Change every 3 days as directed. DX: E11.9 30 Each 3 09/25/19 25 Active Ozempic (2 MG/DOSE) 8 MG/3ML Subcutaneous Solution Pen-injector (Semaglutide (2 MG/DOSE))Indicatio ns:weekly on fridays Inject 2 mg under the skin once a week. On Mondays 9 mL 3 09/30/19 25 Active documented as of this encounter (statuses as of 10/06/2024) Active Problems Problem Noted Date Diagnosed Date [...] [place] heart without angina pectoris 12/16/2019 Assessment & [...] as of this encounter (statuses as of 10/06/2024) Resolved Problems Problem Noted Date Diagnosed Date [...] 07/31/2023 Liver cirrhosis secondary to nonalcoholic steatohepatitis ([facility]) 03/16/2023 04/18/2023 Assessment & Plan (03/16/2023 4:04 [...] 12/21/2016 Diabetes mellitus 01/05/2014 12/21/2016 LEYVA RESEARCH OTHER*[id number] 01/05/2014 12/21/2016 Axillary pain 11/03/2013 12/21/2016 Obesity, [...] 09/201008/26/2011 12/21/2016 FOLLOWING SURGERY, [facility]NSPECIFI ED [facility] 08/25/[facility]) 08/26/2011 12/21/2016 ADVANCE DIRECTIVE INFORMATION 04/17/2011 12/21/2016 Overview (01/21/2010): Yes, Patient instructed to provide copy of advance directive for provider to review and to be scanned into Electronic Medical Record ADVANCE DIRECTIVE INFORMATION 03/01/2011 12/21/2016 Overview (03/01/2011): Yes, Patient instructed to provide copy of advance directive for provider to review and to be scanned into Electronic Medical Record [facility] V710 Clinical Trial*[id number] 12/22/2010 04/14/2011 S/P aortic valve replacement 12/01/2010 08/26/2011 S/P AORTIC VALVE REPLACEMENT - #25 pericardial Mc valve 11/01/2010 06/28/2018 Overview (11/02/2010): Aortic valve replacement with #25 pericardial Mc valve, model 2800TFX, serial number [id number] (Dr. Walker) [facility] V710 Clinical Trial*[id number] 10/18/2010 11/21/2010 Type 2 diabetes mellitus wit [...] as of this encounter (statuses as of 10/06/2024) Immunizations Name Administration Dates Next Due COVID-19 mRNA, LNP-s, No Pre serve, 2-Dose Series (Moderna) 10/25/2021,02/16/2021,01/18/2021 HEP A - Hepatitis A (Adult > 18 yrs) 06/07/2018, 12/05/2017 Hepatitis B, 20+ yrs 06/07/2018,01/08/20 18,12/05/2017,06/15,10/27/2013,09/12/2013 PPD 10/26/2019,10/17/2019 Pneumococcal Conjugate Vacci ne, 20-valent (Cyvqyrq13) 06/22/2023 Pneumococcal Polysaccharide PPV23 (Pneumovax) 01/02/2008 Seasonal [...] No 04/08/2024 Does the household have a [facility] source of income? 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 She did not show for appointment. Therapist called her and left message stating she was sorry to miss Jovita and provided the Scheduling number at [phone] should shewant to reschedule. documented in this encounter Plan of Treatment Upcoming Encounters Date Type Department Care Team (Late st Contact Info) Description 10/07/2024 4:00 PM EST Home Visit [facility] [address] [place] [address] Zurdo Christina RN [address] [place] [address] 10/10/2024 11:00 AM EST Office Visit Family [facility] [address] [address] Gregory Rausch MD [address] [facility] [place] [address] 10/21/2024 11:00 AM EST Telemedicine Pharmacy, [facility] [place] [address] [facility] [place] [address] Pharmacist1, [facility] [address] [facility] [place] [address] 10/23/2024 9:30 AM EST Scheduled Telephone [facility], [facility] [address] [facility] [place] [address] Lakesha King, [place]LLN [address] [facility] [place] [address] 11/03/2024 11:00 AM EST Office Visit Sleep Disorders Ctr [facility] [address] [facility] [place] [phone] Christina Birch DO [address] [facility] [place] [address] 11/04/2024 9:30 AM EST Office Visit Gastroenterology, [facility] [address] [facility] [place] [address] Tia Taylor CRNP [address] [facility] [place] [address] 01/26/2025 11:40 AM EDT Office Visit Nephrology, [facility] [address] [facility] [place] [address] Fidelina Baumann MD [address] [facility] [place] [address] Scheduled Procedures Name Priority Associated Diagnoses Date/Ti [...] 10/25/2021, 02/16/2021, 01/18/2021 CKD PHOS USE SMARTSET 88909 06/18/202405/26, 06/16/2023, 06/15/2023, Additional history exists Diabetic Eye Exam 09/13/2024 09/13/2023, , 09/13/2023, Additional history exists B-12 09/18/2024 09/18/2023, 08/24, 2020, Additional history exists GFR 11/01/2024 05/01/2024, 12/23, 10/15/2023, Additional history exists Albumin/Creatinine Ratio 01/07/2025 024, 03/09/2023, 12/22/2022, Additional history exists CKD HGB USE SMARTSET 57196 01/07/202501/07, 01/08/2024, 10/15/2023, Additional history exists TSH [...] this encounter Medical Devices Implanted Type Area Mixer Driver Device Identifier Shelf Expiration Date Model / Serial / Lot Cath Roselia Single Lumen - [id number] Implanted:Qty : 1 on 03/12/2008 at OR [facility] Left: Chest [facility] *DO NOT USE* 07/25/2012 21-4053-24 / / [id number] Sut Steel 6 M654g - [id number] Implanted:Qty : 1 on 11/01/2010 at OR [facility] N/A: Chest DO NOT USE M654G / / Sut Steel 6 M654g - [id number] Implanted:Qty : 1 on 11/01/2010 at OR [facility] N/A: Chest DO NOT USE M654G / / Valve Tarsha Aortic [id number] - [id number] Implanted:Qty : 1 on 11/01/2010 at OR [facility] N/A: Heart [employer] DANIEL 05/20/2012 2800TFX-25 / / [id number] Description:[email or web address] Mesh Soft 48g92ac - [id number] Implanted:Qty : 1 on 10/10/2019 by Gigi Hendrickson MD at OR [facility] N/A: Abdomen CR BARD : DAVOL [id number] 05/21/2024 [id number] / / [id number] Lens 22.5 Sn60wf - [id number] - [id number] Implanted:Qty : 1 on 09/15/2020 by Renaldo Cook, Cece Acosta MD at OR [facility] Right: Eye IVA : SURGICAL [id number] 05/13/2025 SN60 WF.225 / [id number] / [id number] Lens 21.5 Sn60wf - [id number] - [id number] Implanted:Qty : 1 on 12/19/2023 by Ramsey Burnett, DO at OR [facility] Left: Eye IVA : SURGICAL 12/03/2024 SN60WF.2 15 / [id number] / documented as of this encounter [...] statute hierarchy) Jovita Ovalle Adult Child Health Clothes Drier Assembler resentative (appointed verbally by patient or by statute hierarchy) [email or web address] Care Teams Embroidery Assistant Relationship Specialty Start Date End Date Gregory Rausch MD [address] [place] [address] PCP - General Family Medicine 02/12/20 documented as of this encounter
--- OUTSIDE RECORDS SUMMARY | 2024-10-07 19:01 | External Medical Summary | Summary of Care ---
Author Name Unknown Organization [facility] Address [address] [place] [address] Phone [phone] Care Team Providers Care Qa Analyst Name Role Phone Gregory Rausch MD Primary Care Provider [phone] Encounter Details Date Type Department Care Team (Late st Contact Info) Description 10/06/2024 Population Health External Data Unspecified Department Allergies [...] type 2, not at goal ([facility]) 3 every 15 minutes until glucose is [...] bedtime. 60 Tablet 08/12/20 24 Active Klayesta 797182 UNIT/GM External Powder (Nystatin)Indicati ons:Candidal intertrigo APPLY [...] Tablet 1 09/23/20 24 Active Omnipod 5 QimA7M2 Pods Gen 5Indications:Type 2 diabetes mellitus with [...] eye 09/28/2020 Coronary artery disease invo lving [place] coronary artery of [place] heart without angina pectoris 12/16/2019 Assessment & [...] 12/21/2016 Diabetes mellitus 01/05/2014 12/21/2016 LEYVA RESEARCH OTHER*[id number] 01/05/2014 12/21/2016 Axillary pain 11/03/2013 12/21/2016 Obesity, [...] to be scanned into Electronic Medical Record [facility] V710 Clinical Trial*[id number] 12/22/2010 04/14/2011 S/P aortic valve replacement 12/01/2010 08/26/2011 S/P AORTIC VALVE REPLACEMENT - #25 pericardial Mc valve 11/01/2010 06/28/2018 Overview (11/02/2010): Aortic valve replacement with #25 pericardial Mc valve, model 2800TFX, serial number [id number] (Dr. 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 Not on file Not on [...] Team (Late st Contact Info) Description 10/06/2024 1:00 PM EST Telemedicine Psychology [facility] [address] [place] [address] Jovita Aquino, COUNTER SUPPLY WORKER [address] [place] [address] 10/10/2024 11:00 AM EST Office Visit Family Practice [facility] [address] [place] [address] Gregory Rausch MD [address] [facility] [place] [address] 10/21/2024 11:00 AM EST Telemedicine Pharmacy, [facility] [address] [facility] [place] [address] Pharmacist1, [facility] [address] [facility] [place] [address] 10/23/2024 9:30 AM EST Scheduled Telephone [facility], [facility] [address] [facility] [place] [address] Lakesha King RDN [address] [facility] [place] [address] 11/03/2024 11:00 AM EST Office Visit Sleep Disorders Ctr [facility] [address] [facility] [place] [address] Christina Birch DO [address] [place] [address] 11/04/2024 9:30 AM EST Office Visit Gastroenterology, [facility] [address] [place] [address] Tia Taylor CRNP [address] [place] [address] 01/26/2025 11:40 AM EDT Office Visit Nephrology, [facility] [address] [facility] [place] [address] Fidelina Baumann MD [address] [place] [address] Scheduled Procedures Name Priority Associated Diagnoses Date/Ti [...] 10/25/2021, 02/16/2021, 01/18/2021 CKD PHOS USE SMARTSET 35350 06/18/202405/26, 06/16/2023, 06/15/2023, Additional history exists Diabetic Eye Exam 09/13/2024 09/13/2023, , 09/13/2023, Additional history exists B-12 09/18/2024 09/18/2023, 08/24, 2020, Additional history exists GFR 11/01/2024 05/01/2024, 12/23, 10/15/2023, Additional history exists Albumin/Creatinine Ratio 01/07/2025 024, 03/09/2023, 12/22/2022, Additional history exists CKD HGB USE SMARTSET 10914 01/07/202501/07, 01/08/2024, 10/15/2023, Additional history exists TSH [...] encounter Medical Devices Implanted Type Area Lead Setter Device Identifier Shelf Expiration Date Model / Serial / Lot Cath Roselia Single Lumen - [id number] Implanted:Qty : 1 on 03/12/2008 at OR [facility] Left: Chest [facility] *DO NOT USE* 07/25/2012 21-4053-24 / / [id number] [facility] 6 M654g - [id number] Implanted:Qty : 1 on 11/01/2010 at OR [facility] N/A: Chest DO NOT USE M654G / / Sut Steel 6 M654g - [id number] Implanted:Qty : 1 on 11/01/2010 at OR [facility] N/A: Chest DO NOT USE M654G / / Valve Tarsha Aortic [id number] - [id number] Implanted:Qty : 1 on 11/01/2010 at OR [facility] N/A: Heart [employer] 05/20/2012 2800TFX-25 / / [id number] Description:[email or web address]://[email or web address] Mesh Soft 13l17db - [id number] Implanted:Qty : 1 on 10/10/2019 by Gigi Hendrickson [place] [facility] N/A: Abdomen CR BARD : DAVOL [id number] 05/21/2024 [id number] / / [id number] Lens 22.5 Sn60wf - [id number] - [id number] Implanted:Qty : 1 on 09/15/2020 by Renaldo Cook, Cece Acosta MD at OR [facility] Right: Eye IVA : SURGICAL [id number] 05/13/2025 SN60 WF.225 / [id number] / [id number] Lens 21.5 Sn60wf - [id number] - [id number] Implanted:Qty : 1 on 12/19/2023 by Ramsey Burnett DO at OR [facility] Left: Eye IVA : SURGICAL 12/03/2024 SN60WF.2 15 / [id number] / documented as of this encounter [...] statute hierarchy) Jovita Ovalle Adult Child Health Director Of Epidemiology resentative (appointed verbally by patient or by statute hierarchy) Care Teams Qa Analyst Relationship Specialty Start Date End Date Gregory Rausch MD [address] [place] [address] PCP - General Family Medicine 02/12/20 documented as of this encounter
--- OUTSIDE RECORDS SUMMARY | 2024-10-07 19:01 | External Medical Summary | Summary of Care ---
Author Name Unknown Organization [facility] Address [address] [place] [address] Phone [phone] Care Team Providers Care Densitometer Reader Name Role Phone Gregory Rausch MD Primary Care Provider [phone] Reason for Visit * Reason Onset Date Comments Appointment 10/06/2024 Encounter Details Date Type Department Care Team (Late st Contact Info) Description 10/06/2024 Telephone [facility], [place] [facility] [address] [place] [address] Hughes, Jeremiah, DANYELLE [address] [place] [address] Appointment Allergies Active Allergy Reactions [...] ns:DM type 2, not at goal ([facility] [...] bedtime. 60 Tablet 08/12/20 24 Active Klayesta 746408 UNIT/GM External Powder (Nystatin)Indicati ons:Candidal intertrigo APPLY TOPICALLY TO AFFECTED AREA 3 TIMES A DAY 60 g 1 08/19/20 24 Active NovoLOG FlexPen 100 UNIT/ML Subcutaneous Solution Pen-injector (insulin aspart)Indications :Type 2 diabetes mellitus with hemoglobin A1c goal of less than 7.0% ([facility]) INJECTED UNDER THE SKIN BEFORE [...] Tablet 1 09/23/20 24 Active Omnipod 5 ZfmD5D8 Pods Gen 5Indications:Type 2 diabetes mellitus with [...] eye 09/28/2020 Coronary artery disease invo lving [place] coronary artery of [place] heart without angina pectoris 12/16/2019 Assessment & [...] 12/21/2016 Diabetes mellitus 01/05/2014 12/21/2016 LEYVA RESEARCH OTHER*[id number] 01/05/2014 12/21/2016 Axillary pain 11/03/2013 12/21/2016 Obesity, [...] 12/21/2016 FOLLOWING SURGERY, UNSPECIFI ED ([facility] 08/25/2011) 08/26/2011 12/21/2016 ADVANCE DIRECTIVE INFORMATION 04/17/2011 [...] Record [facility] V710 Clinical Trial*[id number] 12/22/2010 04/14/2011 S/P aortic valve replacement 12/01/2010 08/26/2011 S/P AORTIC VALVE REPLACEMENT - #25 pericardial Mc valve 11/01/2010 06/28/2018 Overview (11/02/2010): Aortic valve replacement with #25 pericardial Mc valve, model 2800TFX, serial number [id number] (Dr. Walker) [facility] V710 Clinical Trial*[id number] 10/18/2010 11/21/2010 Type 2 diabetes mellitus wit [...] PPD 10/26/2019,10/17/2019 Pneumococcal Conjugate Vacci ne, 20-valent (Uojkrwp92) 06/22/2023 Pneumococcal Polysaccharide PPV23 (Pneumovax) 01/02/2008 Seasonal [...] No 04/08/2024 Does the household have a [facility] source of income? 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's schedule. Zurdo will then contact pt prior to appt with a time. Called and spoke with pt who is agreeable. documented in this encounter Plan of Treatment Upcoming Encounters Date Type Department Care Team (Late st Contact Info) Description 10/06/2024 1:00 PM EST Telemedicine Psychology [facility] [address] [place] [address] Jovita Aquino LCSW [address] [place] [address] 10/07/2024 4:00 PM EST Home Visit [facility] [address] [place] [address] Zurdo Christina, PRABHA [address] [place] [address] 10/10/2024 11:00 AM EST Office Visit Family Practice [facility] [address] [facility] [place] [address] Gregory Rausch MD [address] [facility] [place] [address] 10/21/2024 11:00 AM EST Telemedicine Pharmacy, [facility] [address] [facility] [place] [address] Pharmacist1, [facility] [address] [facility] [place] [address] 10/23/2024 9:30 AM EST Scheduled Telephone [facility], [facility] [address] [facility] [place] [address] Lakesha King, [place] [address] [facility] [place] [address] 11/03/2024 11:00 AM EST Office Visit [facility] Disorders Ctr [facility] [address] [facility] [address] Christina Birch DO [address] [place] [address] 11/04/2024 9:30 AM EST Office Visit Gastroenterology, [facility] [address] [facility] [place] [address] Tia Taylor CRNP [address] [place] [address] 01/26/2025 11:40 AM EDT Office Visit Nephrology, [facility] [address] [facility] [place] [address] Fidelina Baumann MD [address] [facility] [place] [address] Scheduled Procedures Name Priority Associated Diagnoses Date/Ti [...] 10/25/2021, 02/16/2021, 01/18/2021 CKD PHOS USE SMARTSET 74306 06/18/202405/26, 06/16/2023, 06/15/2023, Additional history exists Diabetic Eye Exam 09/13/2024 09/13/2023, , 09/13/2023, Additional history exists B-12 09/18/2024 09/18/2023, 08/24, 2020, Additional history exists GFR 11/01/2024 05/01/2024, 12/23, 10/15/2023, Additional history exists Albumin/Creatinine Ratio 01/07/2025 024, 03/09/2023, 12/22/2022, Additional history exists CKD HGB USE SMARTSET 12382 01/07/202501/07, 01/08/2024, 10/15/2023, Additional history exists TSH [...] this encounter Medical Devices Implanted Type Area Kennel Worker Device Identifier Shelf Expiration Date Model / Serial / Lot Cath Roseila Single Lumen - [id number] Implanted:Qty : 1 on 03/12/2008 at OR [facility] Left: Chest [facility] *DO NOT USE* 07/25/2012 21-4053-24 / / [id number] Sut Steel 6 M654g - [id number] Implanted:Qty : 1 on 11/01/2010 at OR [facility] N/A: Chest DO NOT USE M654G / / Sut Steel 6 M654g - [id number] Implanted:Qty : 1 on 11/01/2010 at OR [facility] N/A: Chest DO NOT USE M654G / / Valve Tarsha Aortic [id number] - [id number] Implanted:Qty : 1 on 11/01/2010 at OR [facility] N/A: Heart [employer] 05/20/2012 2800TFX-25 / / [id number] Description:[email or web address] Mesh Soft 76v77bu - [id number] Implanted:Qty : 1 on 10/10/2019 by Gigi Hendrickson MD at [place] [facility] N/A: Abdomen CR BARD : DAVOL [id number] 05/21/2024 [id number] / / [id number] Lens 22.5 Sn60wf - [id number] - [id number] Implanted:Qty : 1 on 09/15/2020 by Cece Roland MD at OR [facility] Right: Eye IVA : SURGICAL [id number] 05/13/2025 SN60 WF.225 / [id number] / [id number] Lens 21.5 Sn60wf - [id number] - [id number] Implanted:Qty : 1 on 12/19/2023 by Ramsey Burnett DO at OR [facility] Left: Eye IVA : SURGICAL 12/03/2024 SN60WF.2 15 / [id number] / documented as of this encounter [...] statute hierarchy) Jovita Ovalle Adult Child Health Mustanger resentative (appointed verbally by patient or by statute hierarchy) [email or web address] Care Teams Densitometer Reader Relationship Specialty Start Date End Date Gregory Rausch MD [address] [place] [address] PCP - General Family Medicine 02/12/20 documented as of this encounter
[2024-10-07] MEDS: POTASSIUM CHLORIDE CRTAB 20 MEQ TABCR PO STA (19:35)
[2024-10-07] MEDS: 4.5GM X1 IV STA (19:36)
[2024-10-07] MEDS: HEPARIN SOD 5,000 UNIT/0.5 ML VIAL SQ SCH (21:57)
[2024-10-07] MEDS: TOPIRAMATE 25 MG TAB PO SCH (21:59)
[2024-10-07] MEDS: GABAPENTIN 300 MG CAP PO SCH (21:59)
[2024-10-07] MEDS: POTASSIUM CHLORIDE 10 MEQ TABCR PO SCH (21:59)
[2024-10-07] MEDS: METOPROLOL TARTRATE 50 MG TAB PO SCH (22:02)
--- NOTE | 2024-10-07 23:23 | Communication Note ---
Date of Service: October 07, 2024 Overnight developments 10/07, 1117PM Made aware by RN of worsening lactic acidosis Persistent tachycardia despite Zosyn Rx 3.1 from 2.5 on admission. AP Sepsis secondary to colitis Worsening lactic acidosis Rule out recurrent C. difficile Change NSS IV fluid to Plasma-Lyte Flagyl 1 dose now for presumptive C. difficile given sepsis criteria Follow C. difficile sample Recheck lactic acid 10/08 1 AM Patient noted to be confused and slow to respond to questions as per RN. Patient noted to be febrile AP Encephalopathy secondary to sepsis Rule out structural CUSTOMER LEADER pathology given thrombocytopenia and antiplatelet Rx Home gabapentin contributory Antipyretic [address] head Hold antiplatelet Rx, heparin subcu for now given thrombocytopenia until CT head resulted Hold gabapentin for now 2:45 AM Stool C. difficile toxin positive AP Recurrent C. difficile Dificid course Stop Zosyn Rx
[2024-10-08] MEDS: PLASMA-LYTE A 1,000 ML IV ONE (00:19)
[2024-10-08] MEDS: PIPERACILLIN/TAZOBACTAM 4.5 GM/100 ML BAG IV SCH (00:29)
[2024-10-08] MEDS: metroNIDAZOLE 500 MG/100 ML BAG IV STA (00:29)
[2024-10-08] MEDS: KETOROLAC TROMETHAMINE 15 MG/ML VIAL IV ONE (01:14)
[2024-10-08 01:59] LABS: Base Excess VBG 0.9 mEq/L; HCO3 VBG 24 mmol/L; Oxygen Saturation VBG 95.1 %; PCO2 VBG 32 mmHg (38-50); PO2 VBG 70 mmHg; pH VBG 7.48 (7.36-7.41)
--- NOTE | 2024-10-08 02:24 | CT Scan Report ---
EXAM: CT head/brain wo con CLINICAL HISTORY: AMS, Thrombocytopenia. TECHNIQUE: An axial non-contrast CT scan of the brain was performed from the skull base to the high parietal region. One of the following dose reduction techniques were utilized for this exam: Automated exposure control, adjustment of the mA and/or kV according to patient size, and use of iterative reconstruction. COMPARISON: CT head dated 10/02/2024 FINDINGS: Brain Parenchyma: A few chronic lacunar infarcts are identified in both basal ganglia and periventricular region Normal attenuation cerebellum, and brainstem. No evidence of acute infarct, hemorrhage, or mass effect. Mild diffuse hypodensity is identified in periventricular deep white matter Atherosclerotic changes seen in both internal carotid and vertebral arteries Ventricular System: Age-appropriate mild dilatation of the ventricular system seen No evidence of hydrocephalus Subarachnoid Spaces: Mild widening of sulci is identified No evidence of subarachnoid hemorrhage or extra-axial fluid collections. Cerebellum and Brainstem: Normal size and density No masses, lesions, or areas of abnormal density. Orbits: Normal appearance of the globes, optic nerves, and extraocular muscles. No evidence of orbital masses or abnormal density Sinuses: Clear paranasal sinuses. No evidence of sinusitis or mucosal thickening. Mild deviation of the nasal septum towards right side Mastoid Air Cells: Minimal opacification of both mastoid air cells Skull: Normal skull morphology. Hyperostosis frontalis interna seen IMPRESSION: 1. No evidence of intracranial hemorrhage, gross territorial infarction or mass-effect. In view of patient's history MRI brain may be obtained for further evaluation 2. Few chronic lacunar infarcts are identified in both basal ganglia and periventricular region, with no interval change 3. Age-appropriate volume loss in brain parenchyma and mild periventricular deep white matter ischemic changes, with no significant interval changes 4. Interval stable minimal bilateral mastoiditis 5. The previously seen hyperdense dural sinuses are not visualized in the current examination 6. Other significant interval changes Electronically signed by Beckie Rome 10-08-2024 02:23 AM
[2024-10-08] MEDS: INSULIN ASPART PER UNIT CHARGE SC SCH (02:27)
[2024-10-08 02:30] LABS: Cdiff Antigen Positive; Cdiff Toxin B Gene (2yr or >) Positive Cdiff Gene (Neg)
[2024-10-08 02:32] LABS: Cdiff Toxin A+B Positive Cdiff Toxin (Negative)
[2024-10-08] MEDS: ACETAMINOPHEN 1,000 MG/100 ML VIAL IV STA (02:35)
[2024-10-08 02:41] LABS: Adenovirus F 40/41 PCR Not Detected (NotDetected); Astrovirus PCR Not Detected (NotDetected); Campylobacter PCR Not Detected (NotDetected); Cryptosporidium PCR Not Detected (NotDetected); Cyclospora cayetanensis PCR Not Detected (NotDetected); Entamoeba histolytica PCR Not Detected (NotDetected); Enteroaggregative E.coli(EAEC) Not Detected (NotDetected); Enteropathogenic E.coli (EPEC) Not Detected (NotDetected); Enterotoxigenic E.coli (ETEC) Not Detected (NotDetected); Giardia lamblia PCR Not Detected (NotDetected); Norovirus GI/GII PCR Not Detected (NotDetected); Plesiomonas shigelloides PCR Not Detected (NotDetected); Rotavirus A PCR Not Detected (NotDetected); Salmonella PCR Not Detected (NotDetected); Sapovirus PCR Not Detected (NotDetected); Shiga-like Toxin E.coli (STEC) Not Detected (NotDetected); Shigella/Enteroinvasive E.coli Not Detected (NotDetected); Vibrio cholerae PCR Not Detected (NotDetected); Vibrio species PCR Not Detected (NotDetected); Yersinia enterocolitica PCR Not Detected (NotDetected)
[2024-10-08] MEDS: FIDAXOMICIN 200 MG TAB PO SCH (03:27)
--- OUTSIDE RECORDS SUMMARY | 2024-10-08 04:10 | External Medical Summary | Summary of Care ---
Author Name Unknown Organization [facility] Address [address] [place] [address] Phone [phone] Care Team Providers Care Cable Television Technician Name Role Phone Gregory Rausch MD Primary Care Provider [phone] Reason for Visit * Reason Onset Date Comments Home Health 10/07/2024 Encounter Details Date Type Department Care Team (Late st Contact Info) Description 10/07/2024 Telephone Family Practice [facility] [address] [place] [address] Gregory Rausch MD [address] [place] [address] Home Health Allergies Active Allergy Reactions Criticality Noted Date Comments Adhesive Tape 07/02/2017 Can tolerate band-aids Glycerin Other (Please comment) 03/12/2008 Topical agents with glycein-burning & itching Lactose 12/09/2014 Dairy - gas Lisinopril Cough 01/21/2010 Monosodium Glutamate Edema Other 03/12/2008 Hands and feet Penicillins Rash 11/14/2007 documented as of this encounter (statuses as of 10/07/2024) Medications aspirin enteric coated 81 MG TBECIndications:Ao rtic valve disorder Take 1 Tab by mouth daily. 90 Tab 11 09/30/19 19 Active AZO Cranberry 250-30 MG Oral Tablet Take 1 Tablet by mouth in the morning and 1 Tablet before bedtime. Active BD Glucose 5 GM Oral Tablet Chewable (Glucose)Indicatio ns:DM type 2, not at goal ([facility]) 3 every 15 minutes until glucose [...] than 7.0% ([facility]) Use up to 50 units per [...] ([facility]) Inject 36 Units under the skin [...] bedtime. 60 Tablet 08/12/20 24 Active Klayesta 328167 UNIT/GM External Powder (Nystatin)Indicati ons:Candidal intertrigo APPLY TOPICALLY TO AFFECTED AREA 3 TIMES A DAY 60 g 1 08/19/20 24 Active NovoLOG FlexPen 100 UNIT/ML Subcutaneous Solution Pen-injector (insulin aspart)Indications :Type 2 diabetes mellitus with hemoglobin A1c goal of less than 7.0% ([facility]) INJECTED UNDER THE SKIN BEFORE MEALS, 3 [...] Tablet 1 09/23/20 24 Active Omnipod 5 [id number] Pods Gen 5Indications:Type 2 diabetes mellitus with hemoglobin A1c goal of less than 8.0% ([facility]) Use as directed. Change every 3 days as directed. DX: E11.9 30 Each 3 09/25/19 25 Active Ozempic (2 MG/DOSE) 8 MG/3ML Subcutaneous Solution Pen-injector (Semaglutide (2 MG/DOSE))Indicatio ns:weekly on fridays Inject 2 mg under the skin once a week. On Mondays 9 mL 3 09/30/19 25 Active documented as of this encounter (statuses as of 10/07/2024) Active Problems Problem Noted Date Diagnosed Date [...] eye 09/28/2020 Coronary artery disease invo lving [place] coronary artery of [place] heart without angina pectoris 12/16/2019 Assessment & [...] as of this encounter (statuses as of 10/07/2024) Resolved Problems Problem Noted Date Diagnosed Date [...] mgmt 02/19/2014 12/21/2016 Diabetes mellitus 01/05/2014 12/21/2016 [facility] OTHER*[id number] 01/05/2014 12/21/2016 Axillary pain 11/03/2013 12/21/2016 Obesity, [...] 09/201008/26/2011 12/21/2016 FOLLOWING SURGERY, UNSPECIFI ED ([facility] 08/25/2011) 08/26/2011 12/21/2016 ADVANCE DIRECTIVE INFORMATION 04/17/2011 12/21/2016 Overview (01/21/2010): Yes, Patient instructed to provide copy of advance directive for provider to review and to be scanned into Electronic Medical Record ADVANCE DIRECTIVE INFORMATION 03/01/2011 12/21/2016 Overview (03/01/2011): Yes, Patient instructed to provide copy of advance directive for provider to review and to be scanned into Electronic Medical Record [facility] V710 Clinical Trial*[id number] 12/22/2010 04/14/2011 S/P aortic valve replacement 12/01/2010 08/26/2011 S/P AORTIC VALVE REPLACEMENT - #25 pericardial Hernandez valve 11/01/2010 06/28/2018 Overview (11/02/2010): Aortic valve replacement with #25 pericardial Hernandez valve, model 2800TFX, serial number [id number] (Dr. Walker) [facility] V710 Clinical Trial*[id number] 10/18/2010 11/21/2010 Type 2 diabetes mellitus wit [...] as of this encounter (statuses as of 10/07/2024) Immunizations Name Administration Dates Next Due COVID-19 mRNA, LNP-s, No Pre serve, 2-Dose Series (Moderna) 10/25/2021,02/16/2021,01/18/2021 HEP A - Hepatitis A (Adult > 18 yrs) 06/07/2018, 12/05/2017 Hepatitis B, 20+ yrs 06/07/2018,01/08/20 18,12/05/2017,06/15,10/27/2013,09/12/2013 PPD 10/26/2019,10/17/2019 Pneumococcal Conjugate Vacci ne, 20-valent ([id number]) 06/22/2023 Pneumococcal Polysaccharide PPV23 (Pneumovax) 01/02/2008 Seasonal [...] No 04/08/2024 Does the household have a [facility] source of income? 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 Patient was recently in the hospital for Stroke Like Symptoms due to hyperglycemia. Patient started vomiting while Chantelle was doing paperwork- Chantelle gave her water as she has been onlydrinking Gatorade. She does not have a working glucometer in the home and she is out of CGM sensors. He HR is elevated at 140. She feels like patient needs to go to the ER and wants PCP approval. Spoke with Nurse in the office, she spoke with Dr. Rausch, advised to send to ER. Chantelle verbalized understanding. [facility] documented in this encounter Plan of Treatment Upcoming Encounters Date Type Department Care Team (Late st Contact Info) Description 10/07/2024 4:00 PM EST Home Visit [facility], [facility] [address] [place] [address] Zurdo Christina, RN [address] [place] [address] 10/10/2024 11:00 AM EST Office Visit Family Practice [facility] [address] [place] [address] Gregory Rausch MD [address] [place] [address] 10/21/2024 11:00 AM EST Telemedicine Pharmacy, [facility] [address] [facility] [place] [address] Pharmacist1, [facility] [address] [facility] [place] [address] 10/23/2024 9:30 AM EST Scheduled Telephone [facility], [facility] [address] [facility] [place] [address] Lakesha King, MITCHELLN [address] [place] [facility] [place] [address] 11/03/2024 11:00 AM EST Office Visit Sleep Disorders Ctr [facility] [address] [place] [phone] Christina Birch, [address] [facility] [place] [address] 11/04/2024 9:30 AM EST Office Visit Gastroenterology, [facility] [address] [place] [address] Tia Taylor CRNP [address] [place] [address] 01/26/2025 11:40 AM EDT Office Visit Nephrology, [facility] [address] [place] [address] Fidelina Baumann MD [address] [place] [address] Scheduled Procedures Name Priority Associated Diagnoses Date/Ti [...] 10/25/2021, 02/16/2021, 01/18/2021 CKD PHOS USE SMARTSET 50677 06/18/202405/26, 06/16/2023, 06/15/2023, Additional history exists Diabetic Eye Exam 09/13/2024 09/13/2023, , 09/13/2023, Additional history exists B-12 09/18/2024 09/18/2023, 08/24, 2020, Additional history exists GFR 11/01/2024 05/01/2024, 12/23, 10/15/2023, Additional history exists Albumin/Creatinine Ratio 01/07/2025 024, 03/09/2023, 12/22/2022, Additional history exists CKD HGB USE SMARTSET 84955 01/07/202501/07, 01/08/2024, 10/15/2023, Additional history exists TSH [...] this encounter Medical Devices Implanted Type Area Fruit Checker Device Identifier Shelf Expiration Date Model / Serial / Lot Cath Roselia Single Lumen - [id number] Implanted:Qty : 1 on 03/12/2008 at OR [facility] Left: Chest [facility] *DO NOT USE* 07/25/2012 21-4053-24 / / [id number] Sut Steel 6 M654g - [id number] Implanted:Qty : 1 on 11/01/2010 at OR [facility] N/A: Chest DO NOT USE M654G / / Sut Steel 6 M654g - [id number] Implanted:Qty : 1 on 11/01/2010 at OR [facility] N/A: Chest DO NOT USE M654G / / Valve Tarsha Aortic [id number] - [id number] Implanted:Qty : 1 on 11/01/2010 at OR [facility] N/A: Heart MirantisCIFollica DANIEL 05/20/2012 [id number]-[id number] / / [id number] Description:[email or web address] Mesh Soft 13l36ou - [id number] Implanted:Qty : 1 on 10/10/2019 by Gigi Hendrickson MD at [facility] N/A: Abdomen CR BARD : DAVOL [id number] 05/21/2024 [id number] / / [id number] Lens 22.5 Sn60wf - [id number] - [id number] Implanted:Qty : 1 on 09/15/2020 by Renaldo Cook, Cece Acosta MD at [facility] Right: Eye IVA : SURGICAL [id number] 05/13/2025 SN60 WF.225 / [id number] / [id number] Lens 21.5 Sn60wf - [id number] - [id number] Implanted:Qty : 1 on 12/19/2023 by Ramsey Burnett DO at OR [facility] Left: Eye IVA : SURGICAL 12/03/2024 SN60WF.2 15 / [id number] / documented as of this encounter [...] statute hierarchy) Jovita Yamile Adult Child Health Steam Cleaner resentative (appointed verbally by patient or by statute hierarchy) [email or web address] Care Teams Cable Television Technician Relationship Specialty Start Date End Date Gregory Rausch MD [address] [place] [address] PCP - General Family Medicine 02/12/20 documented as of this encounter
[2024-10-08] MEDS: LEVOTHYROXINE SODIUM 75 MCG TABLET PO SCH (05:56)
[2024-10-08] MEDS ORDERED: VANCOMYCIN CONSULT ACTIVE PRN (07:54)
[2024-10-08] MEDS: SODIUM CHLORIDE 0.9% 1,000 ML IV SCH (08:11)
[2024-10-08 08:41] LABS: Base Excess VBG -3.6 mEq/L; HCO3 VBG 22 mmol/L; Oxygen Saturation VBG < 60.0 %; PCO2 VBG 38 mmHg (38-50); PO2 VBG 36 mmHg; pH VBG 7.36 (7.36-7.41)
[2024-10-08 08:44] LABS: Adenovirus PCR Not Detected (NotDetected); Bordetella parapertussis PCR Not Detected (NotDetected); Bordetella pertussis PCR Not Detected (NotDetected); Chlamydia pneumoniae PCR Not Detected (NotDetected); Coronavirus 229E PCR Not Detected (NotDetected); Coronavirus CoV-2 (COVID19)PCR Not Detected (NotDetected); Coronavirus HKU1 PCR Not Detected (NotDetected); Coronavirus NL63 PCR Not Detected (NotDetected); Coronavirus OC43PCR Not Detected (NotDetected); Human Metapneumovirus PCR Not Detected (NotDetected); Influenza A PCR Not Detected (NotDetected); Influenza B PCR Not Detected (NotDetected); Mycoplasma pneumoniae PCR Not Detected (NotDetected); Parainfluenza Virus 1 PCR Not Detected (NotDetected); Parainfluenza Virus 2 PCR Not Detected (NotDetected); Parainfluenza Virus 3 PCR Not Detected (NotDetected); Parainfluenza Virus 4 PCR Not Detected (NotDetected); Respiratory Syncytial VirusPCR Not Detected (NotDetected); Rhinovirus/Enterovirus PCR Not Detected (NotDetected)
[2024-10-08 09:07] LABS: Basophils # (auto) 0.04 K/uL (0.00-0.20); Basophils % (auto) 0.3 %; Hematocrit (blood only) 34.6 % (37.0-47.0); Hemoglobin 11.9 g/dl (12.0-16.0); Immature Granulocytes % (auto) 3.1 %; Lymphocytes # (auto) 0.58 K/uL (1.20-3.40); Lymphocytes % (auto) 3.6 %; Mean Corpuscular Hemoglobin 27.6 pg (25.0-34.0); Mean Corpuscular Hgb Conc 34.4 g/dL (32.0-36.0); Mean Corpuscular Volume 80.3 fL (80.0-100.0); Mean Platelet Volume 11.1 fL (9.4-12.4); Monocytes # (auto) 0.43 K/uL (0.11-0.59); Monocytes % (auto) 2.7 %; Neutrophils # (auto) 14.36 K/uL (1.40-6.50); Neutrophils % (auto) 90.3 %; Platelet Count 85 K/uL (130-400); Platelet Estimate Decreased (Normal); Polychromasia 1+; RDW Coefficient of Variation 13.7 % (11.5-14.5); RDW Standard Deviation 39.8 fL (36.4-46.3); Red Blood Count 4.31 M/uL (4.20-5.40); Tear Drop Cells 1+; Toxic Vacuolation 1+; White Blood Count 15.91 K/ul (4.8-10.8)
[2024-10-08 09:08] LABS: Albumin Globulin Ratio 1.2 (0.9-2); Albumin Level 2.7 gm/dl (3.4-5.0); BUN Creatinine Ratio 14.2 (10-20); Bilirubin,Total 0.7 mg/dl (0.2-1.0); Calcium 7.6 mg/dl (8.6-10.3); Creatinine Clr Calc Pharmacy 36.5 ml/min; Globulin 2.2 gm/dl (2.5-4.0); Magnesium 1.9 mg/dl (1.7-2.4); Potassium 3.5 mmol/L (3.5-5.1); Total Protein 4.9 gm/dl (6.0-8.3)
[2024-10-08 09:55] LABS: Troponin I High Sensitivity 28.1 pg/ml (0-14)
[2024-10-08] MEDS: NYSTATIN POWDER 15GM BTL EXT PRN (10:41)
[2024-10-08] MEDS: AMMONIUM LACTATE 12% LOTION 225 GM BTL EXT SCH (10:41)
[2024-10-08] MEDS: ASPIRIN 81 MG ECTAB PO SCH (10:42)
[2024-10-08] MEDS: FLUTICASONE PROPIONATE NA SPR 16 GM BTL SCH (10:44)
[2024-10-08] MEDS: ADVANCED PROBIOTIC 625 MG CAPSULE PO SCH (10:45)
[2024-10-08] MEDS: ATORVASTATIN 40 MG TAB PO SCH (10:45)
[2024-10-08] MEDS: MAGNESIUM OXIDE 400 MG TAB PO SCH (10:46)
[2024-10-08] MEDS: VANCOMYCIN HCL 1,250 MG in SODIUM CHLORIDE 0.9% 250 ML IV ONE (10:46)
[2024-10-08] MEDS: CEROVITE ADV FORMULA TAB PO SCH (10:46)
[2024-10-08] MEDS ORDERED: cefTRIAXone SODIUM 1,000 MG MINI-B 50ML IV SCH (11:00)
[2024-10-08] MEDS: CLOPIDOGREL BISULFATE 75 MG TAB PO SCH (11:42)
[2024-10-08] MEDS: PROMETHAZINE 6.25 MG/50.25 ML BAG IV PRN (11:42)
[2024-10-08] MEDS: metroNIDAZOLE 500 MG/100 ML BAG IV SCH (11:50)
--- NOTE | 2024-10-08 11:56 | Gastrointestinal Consultation ---
Date of Consultation October 08, 2024 Assessment & Plan (1) C. difficile colitis: Patient's diarrhea and colitis appear to be coming from current c diff infection. I suspect the c diff arose from antibiotic use on admission earlier this month. - recommend continuation of a course of vancomycin. Supervising Physician Co-Signing Physician Notes Patient with severe C. difficile colitis. Manifested for elevated white count elevated lactate colitis on CT scan. She is both PCR and toxin positive. Patient getting antibiotics for UTIs. She has had a history of current C. difficile according her daughter multiple multiple times. Currently on vancomycin 500 mg every 6 and getting IV Flagyl. Lactate has decreased which is a good sign. Slight increase in her creatinine. Patient certainly in the range of fulminant C. difficile. No evidence for colonic dilatation her abdomen is relatively benign. I would treat with 2 weeks of vancomycin. If she continues to require broad-spectrum antibiotics. Beyond this timeframe. Treat with vancomycin coverage while on broad-spectrum antibiotics. Post antibiotics could have a vancomycin taper when 125 mg twice daily for a week, then 125 mg daily x 1 week. Then trial off. Patient remains at high risk of relapses. Reviewed with daughter at the bedside patient may benefit from frequent handwashing soap and water at home if this is feasible. May also benefit from sterilization of flat surfaces such as sinks door handles and toilet with Clorox wipes. History of Present Illness Reason for Consultation: diffuse colitis Requesting Physician: Vargas Ivory MD Attending Physician: Vargas Ivory MD History of Present Illness Patient is a 63 year old female with a past medical history of aortic stenosis s/p TAVR [2017], CAD s/p drug-eluting stent to LAD, HFpEF, DM type II, hypothyroidism, HLD, liver cirrhosis 2/2 LEYVA, HTN, questionable paroxysmal atrial fibrillation, DANYELLE intolerant to CPAP, CKD stage III, benign paroxysmal positional vertigo 2/2 bilateral vestibular disorder, schizoaffective disorder, history of breast cancer s/p bilateral mastectomies + chemoradiation [2008], history of colon cancer s/p colon resection, history of GI bleed, history of C. difficile infection and splenic infarcts who presented to the ED via EMS on 10/07/24 with complaints of nausea/vomiting, hyperglycemia, and diarrhea. She had CT upon evaluation showing diffuse colitis. her C diff testing did come back positive. She had been on antibiotics on admission earlier this month. she was just started on dificid and this appears to have been changed to vanco. Patient lethargic currently, and reports some diffuse abdominal tenderness. she denies any nausea, vomiting. no melena/brbpr. history was also obtained through patient's daughter who was at bedside. Allergies Allergy/AdvReac Type Severity Reaction Status Date / Time glycerin Allergy Intermediate ITCHING, Verified 11/10/23 00:17 BURNING FROM TOPICALS lactose Allergy Intermediate Gastrointestinal Verified 11/10/23 00:17 Upset Penicillins Allergy Intermediate Rash Verified 11/10/23 00:17 adhesive tape AdvReac Intermediate CAN NOT Verified 11/10/23 00:17 TOLERATE BANDAIDS lisinopril AdvReac Intermediate Cough Verified 11/10/23 00:17 monosodium glutamate AdvReac Intermediate EDEMA OF Verified 11/10/23 00:17 HANDS & FEET Home Medications Medication Instructions Recorded Confirmed Type atorvastatin 40 mg tablet (Lipitor) 40 mg PO DAILY 05/02/19 10/07/24 History clopidogrel 75 mg tablet (Plavix) 75 mg PO DAILY 05/02/19 10/07/24 History levothyroxine 75 mcg tablet 75 mcg PO DAILY 05/02/19 10/07/24 History meclizine 25 mg tablet 50 mg PO BID 05/02/19 10/07/24 History magnesium oxide 400 mg PO DAILY 02/14/23 10/07/24 History trazodone 100 mg tablet 300 mg PO HS PRN Insomnia 02/14/23 10/07/24 History flash glucose scanning reader #1 ea 02/15/23 10/07/24 Rx (FreeStyle Keisha 2 [place]) ammonium lactate 12 % lotion 1 applic topical DAILY 06/03/23 10/07/24 History aspirin 81 mg tablet,delayed 81 mg PO DAILY 06/03/23 10/07/24 History release cranberry extract-vitamin C 250 2 cap PO TID 06/03/23 10/07/24 History mg-60 mg capsule (Azo Cranberry Plus Vit C) fluticasone propionate 50 2 spray intranasal DAILY 06/03/23 10/07/24 History mcg/actuation nasal spray,suspension insulin degludec 200 unit/mL (3 44 unit subcut DAILY 06/03/23 10/07/24 History mL) subcutaneous pen (Tresiba FlexTouch U-200 insulin) melatonin 10 mg tablet 10 mg PO HS 06/03/23 10/07/24 History multivitamin with minerals 1 tab PO DAILY 06/03/23 10/07/24 History nystatin 100,000 unit/gram topical 1 applic topical DIRECTED PRN 06/03/23 10/07/24 History powder Skin Irritation semaglutide 2 mg/dose (8 mg/3 mL) 2 mg subcut WK 06/03/23 10/07/24 History subcutaneous pen injector (Ozempic) Al hyd-Mg tr-alg ac-sod bicarb 80 1 tab PO DIRECTED PRN Gi Upset 10/27/23 10/07/24 History mg-14.2 mg chewable tablet (Gaviscon) insulin aspart U-100 100 unit/mL 24 unit subcut TIDM 50 UNITS/DAILY 10/27/23 10/07/24 History (3 mL) subcutaneous pen (Novolog FlexPen U-100 Insulin aspart) metoprolol tartrate 25 mg tablet 50 mg PO BID 10/27/23 10/07/24 History gabapentin 300 mg capsule 300 mg PO TID 06/05/24 10/07/24 History potassium chloride 10 mEq 10 meq PO BID 06/05/24 10/07/24 History tablet,extended release(part/cryst) (Bonnie-Con M) Lactobacillus acidophilus 1 1,000 mmu cells PO DAILY #30 caps 06/10/24 10/07/24 Rx billion cell capsule duloxetine 20 mg capsule,delayed 20 mg PO DAILY 10/01/24 10/07/24 History release topiramate 25 mg tablet 25 mg PO HS 10/01/24 10/07/24 History Patient History Medical History Irritable bowel syndrome with diarrhea Failure of outpatient treatment C. difficile colitis Pancolitis Pancolitis C. difficile diarrhea Acute diarrhea DM II (diabetes mellitus, type II), controlled Diastolic congestive heart failure Atrial fibrillation with rapid ventricular response Aortic stenosis CAD (coronary artery disease) Dyslipidemia Colon cancer Acute hyperglycemia Hypomagnesemia Hypokalemia Intertrigo Chest pain Pulmonary embolism Altered mental status UTI (urinary tract infection) Pleuritic chest pain CKD (chronic kidney disease) stage 3, GFR 30-59 ml/min IDDM (insulin dependent diabetes mellitus) Uterine cancer 2014--sx, no chemo/radiation Breast cancer, right breast 2007--Sx, chemo/radiation Colon cancer 2004--sx, no chemo or radiation Liver cirrhosis non-alcoholic Hypothyroidism Diabetes mellitus, type 2 On anticoagulant therapy Cataract of both eyes Depression Anxiety Aortic valve stenosis Cardiac murmur Follows with Dr. Muniz Hyperlipidemia Hypertension Sleep apnea Cpap Depression with anxiety DANYELLE (obstructive sleep apnea) Hypothyroidism HTN (hypertension) Surgical History Presence of stent in coronary artery S/P TAVR (transcatheter aortic valve replacement) History of cardiac cath x2--2010 @ [facility] 07/2017 @ [facility]-no stent, follows with Dr. Muniz S/P foot surgery, right "foot was widening" History of section x4 H/O breast surgery L implant infected and was removed History of breast reconstruction Bilt breast after masectomy History of bilateral tubal ligation History of dilatation and curettage History of carpal tunnel release bilt History of colonoscopy History of esophagogastroduodenoscopy (EGD) History of total abdominal hysterectomy and bilateral salpingo-oophorectomy 2014 D/T uterine cancer H/O breast biopsy right--malignant H/O bilateral mastectomy 01/2008--breast cancer History of bowel resection 2004 @ [facility] Joyce d/t Colon Cancer History of appendectomy History of open heart surgery 2011 @ [facility] Joyce H/O aortic valve replacement 06/2017 @ [facility] Cris H/O aortic valve replacement #25 Manga aortic valve bioprosthesis placed in 2010, and 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 On 11/06/2017 she underwent transcatheter aortic valve replacement receiving a 26 mm Hernandez-Bing S3 prosthesis Family History Grandmother Family history of diabetes mellitus maternal Family/Other Family history of diabetes mellitus paternal aunt Father , of premature CAD Coronary heart disease Mother , of premature CAD Coronary heart disease Social History Smoking Status: Never smoker Second Hand Exposure: No; Do You Dip or Chew Tobacco: No; Tobacco Cessation Education Requested by Patient: No Hx Alcohol Use: No Hx Substance Use: No Preferred Language: Armenian Communication Ability: Effective Community Health Nurse Supervisor Required: No Beliefs That Will Affect Care: None marital status: Single marital status details: has fiance Current Living Situation: Alone Current Living Situation Comment: Home alone Other Information That Helps Us Care for You: No Feels Safe at Home: Yes Safety Concerns: Feels Safe At This Time Assistive Devices: Cane, CPAP and Walker Review of Systems Review of Systems: All systems reviewed & are unremarkable except as noted in HPI & below Physical Exam Constitutional: WD/WN, vitals as above Respiratory: normal respiratory effort, lungs clear to auscultation Cardiovascular: Rate/Rhythm: regular rate and regular rhythm Gastrointestinal (Abdomen): mild diffuse tenderness, no guarding, soft. normal bowel sounds. Psychiatric: lethargic. Results & Data Vital Signs (Past 12 Hours) Vital Signs Temp Pulse Pulse Resp BP BP Pulse Ox 10/08/24 11:36 98.1 F 102 H 18 105/67 92 10/08/24 11:27 99 H 10/08/24 07:47 99.3 F 93 H 18 84/51 L 92 10/08/24 03:45 98.8 F 85 18 92 10/08/24 02:00 102.5 F H 10/08/24 01:00 102.6 F H O2 Del Method 10/08/24 11:36 Room Air 10/08/24 11:27 10/08/24 07:47 Room Air 10/08/24 03:45 Room Air 10/08/24 02:00 10/08/24 01:00 Coding Level of Care Code 60107 INT INP/OBS CARE 2/55MIN Diagnoses C. difficile colitis A04.72
[2024-10-08] MEDS: CHERRY SYRUP 5 ML UDP PO SCH (11:57)
[2024-10-08] MEDS: VANCOMYCIN HCL 500 MG/10 ML SOLN PO SCH (11:57)
[2024-10-08] MEDS: LANTUS PER UNIT CHARGE SC ONE (12:50)
[2024-10-08] MEDS: PLASMA-LYTE A 1,000 ML IV SCH (12:54)
[2024-10-08] MEDS ORDERED: LANTUS PER UNIT CHARGE SC ONE ×2 (13:00)
--- NOTE | 2024-10-08 13:44 | Hospitalist Progress Note ---
Date of Service October 08, 2024 Assessment & Plan (1) Acute hyperglycemia: (2) Insulin dependent type 2 diabetes mellitus: (3) Sepsis: (4) Acute colitis: (5) Hypertensive urgency: (6) Abnormal urinalysis: (7) Prolonged QT interval: (8) Hypomagnesemia: (9) Elevated troponin: Plan Jovita Rose is a 63y/o F with PMHx significant for aortic stenosis s/p TAVR [2017], CAD s/p drug-eluting stent to LAD, HFpEF, DM type II, hypothyroidism, HLD, liver cirrhosis 2/2 LEYVA, HTN, questionable paroxysmal atrial fibrillation, DANYELLE intolerant to CPAP, CKD stage III, benign paroxysmal positional vertigo 2/2 bilateral vestibular disorder, schizoaffective disorder, history of breast cancer s/p bilateral mastectomies + chemoradiation [2007], history of colon cancer s/p colon resection, history of GI bleed, history of C. difficile infection and splenic infarcts who presented to the ED via EMS on 10/07/24 with multiple complaints including nausea/vomiting, hyperglycemia and diarrhea. Of note, patient was recently discharged from our service on 10/03/24; she was admitted with strokelike symptoms which were thought to be as a result of hyperglycemia ISO uncontrolled, insulin-dependent DM type II. Stroke work-up was completely unremarkable. She was discharged home with [facility] services following that admission. C. difficile colitis Sepsis secondary to C. difficile Patient meets sepsis criteria 2/2 tachycardia, WBC>12k + evidence of diffuse colitis on CTAP. Patient with diarrhea x 2 days. CXR unremarkable. CTAP revealed diffuse colitis (no free air or abscess). C. difficile positive. Discussed with pharmacy who reviewed the case with [employer] senior sales consultant (Dr. Herrera); patient has significant C. difficile colitis with no other source of infection at this time. Started on oral vancomycin 500 mg every 6 hours along with IV Flagyl. Monitor response. Follow-up on blood culture. Given IV fluid bolus for hypotension; will continue on maintenance IV fluid with Plasma-Lyte at 100 cc/h Monitor Urine output Acute Hyperglycemia ISO Uncontrolled Insulin-Dependent DMII: Patient with known history of uncontrolled insulin-dependent DMII. Patient's outpatient insulin regimen is 44U of insulin degludec daily and 24U of insulin aspart TIDM. Patient reports that she has been unable to monitor her BSG at home since her discharge last week as her glucometer was not working; Started on Lantus/NovoLog. Pharmacy on board. Abnormal Urinalysis: Patient denies any signs or symptoms of UTI. Antibiotics discontinued Prolonged QT Interval: QTc prolonged at 534ms on presenting EKG. Holding home trazodone, duloxetine and meclizine. Hypomagnesemia: Repleted Elevated Troponin: Initial troponin 20.7; presenting EKG with no evidence of acute ST changes. Likely demand ischemia ISO acute illness and dehydration Chronic HFpEF, Aortic Stenosis S/P TAVR, HTN: Previous ALMA from 05/2023 --> LVEF of 55 to 59%, no LV segmental wall motion abnormalities. Continue metoprolol tartrate 50mg BID as per above, ASA 81mg daily and atorvastatin 40mg daily. DVT Prophylaxis: SQ Heparin Code Status: FULL CODE PCP: Gregory Rausch MD Updated patient's son Roberto Carlos over the phone regarding patient's critical condition. answered questions/queries. Attempted to reach her son Gigi; unable to reach by phone. Time spent evaluating patient, direct bedside care, chart review, placing orders, interpretation of diagnostic studies, discussion with consultants, patient, and family members, as well as other required patient management activities is 60 minutes Please note the above document was generated using voice recognition software. It may contain grammatical, syntax or spelling errors. Any formal questions or concerns about the content, text or information contained within the body of this dictation should be directly addressed to the provider for clarification Admission and Anticipated Discharge Date Admission Date: October 07, 2024 Subjective Patient seen at bedside; she is sleepy but awake able to voice voice. She is alert oriented x 3. Reports no pain or discomfort at this time. Blood pressure was soft in a.m.; improved with IV bolus Review of Systems Review of Systems: All systems reviewed & are unremarkable except as noted in Subjective Physical Exam Physical Exam: Constitutional: Awake, alert oriented x 3. Appears comfortable. Respiratory: Bilateral vesicular breath sound. Cardiovascular: RRR, no murmur, no edema Vessels: no JVD or carotid bruit Chest: normal inspection of chest Abdomen: Slightly distended, nontender. Bowel sound present Musculoskeletal: no cyanosis or clubbing, extremities motor strength 5/5 Skin: no rashes, warm and dry normal turgor Neurologic: PERRL, EOMI, accommodation nl, no face palsy, no dysarthria CN's II- XI intact bilaterally and moves all extremities Psychiatric: A+Ox3, euthymic affect Results & Data Results & Data Vital Signs (Past 12 Hours) Vital Signs Temp Pulse Pulse Resp BP BP Pulse Ox 10/08/24 11:36 36.7 C 102 H 18 105/67 92 10/08/24 11:27 99 H 10/08/24 07:47 37.4 C 93 H 18 84/51 L 92 10/08/24 03:45 37.1 C 85 18 92 10/08/24 02:00 39.2 C H O2 Del Method 10/08/24 11:36 Room Air 10/08/24 11:27 10/08/24 07:47 Room Air 10/08/24 03:45 Room Air 10/08/24 02:00 (3) Sepsis Sepsis acute organ dysfunction status: unspecified Sepsis type: sepsis due to unspecified organism Qualified Code(s): A41.9 - Sepsis, unspecified organism
[2024-10-08] MEDS ORDERED: cefTRIAXone SODIUM 2,000 MG/50 ML BAG IV SCH (14:30)
--- NOTE | 2024-10-08 14:33 | Pharmacy Report ---
Pharmacy Glycemic Short Note 2 - Date of Service October 08, 2024 - Glycemic Short BSG Results (Last 24 hours): 10/07/24 10/07/24 10/07/24 14:54 18:05 19:41 Glucose POC Glucose 358 H* 325 H* 319 H* 10/07/24 10/08/24 10/08/24 20:51 00:43 05:32 Glucose POC Glucose 278 H 169 H 153 H 10/08/24 10/08/24 10/08/24 07:42 08:32 11:34 Glucose 224 H POC Glucose 188 H 340 H* OUTPATIENT ANTIDIABETIC REGIMEN: * Tresiba 44 units SC AM * Novolog 24 units SC AC * Ozempic 2 mg SC every Sunday HbA1c: * 10.3% (10/07/24) ASSESSMENT: * 63 yo F admitted on 10/07/24 secondary to nausea/vomiting from hyperglycemia. Pharmacy has been consulted to assist with inpatient glycemic management. Patient is a Type 2 diabetic as an outpatient. Please refer to outpatient regimen and most recent HbA1c above. * Patient well known to pharmacy glycemic service. Was recently admitted to [facility] from 10/01/24 - 10/03/24. * BSG was above 400 mg/dL upon arrival. Received two separate 10 unit IV insulin boluses yesterday afternoon. BSG decreased to 325 mg/dL. * Started on subcutaneous basal-bolus insulin last evening based on previous admission data. Received 55 units of basal and 28 units bolus. HS and midnight checks were 319 and 169 mg/dL. * Fasting BSG was 188 mg/dL this AM. Patient being treated for C. diff infection with PO vanc and IV metronidazole. Ordered a T2DM diet but not eating much per RN. Had 2 trinidadian ices for lunch. * Will continue with previously ordered basal dose for now. Will attempt to transition this to AM dosing to match outpatient regimen. Give a dose around noon today and then can start with AM tomorrow. * Did tighten Novolog slightly this morning. PLAN FOR INPATIENT GLYCEMIC CONTROL: * Basal insulin * Lantus 55 units SC x 1 at 1300 * Reassess basal in AM * Bolus insulin * NovoLog per scale ACHS or Q6hrs while NPO * Goal Range: Low 110 mg/dL - High 140 mg/dL * Correction Factor: 10 mg/dL/unit * Nutritional / Prandial insulin per carb ratio of 1 unit per 3 grams CHO consumed
[2024-10-08 18:57] LABS: Anion Gap 7 (3-11); BUN Creatinine Ratio 16.3 (10-20); Blood Urea Nitrogen 21 mg/dl (6-23); Calcium 7.2 mg/dl (8.6-10.3); Carbon Dioxide 21 mmol/L (21-32); Chloride 98 mmol/L (98-107); Creatinine Clr Calc Pharmacy 35.9 ml/min; Glucose 249 mg/dl (70-99(Fasting)); Sodium 126 mmol/L (136-145)
--- NOTE | 2024-10-08 20:51 | Communication Note ---
Date of Service: October 08, 2024 Serum sodium 126 from 129 in a.m. Patient with some confusion as per RN note. 5 L IVF as per RN accounting received from last 36 hours. AP Acute on chronic hyponatremia Possible underlying SIADH Hold Plasma-Lyte for now Hyponatremia workup Recheck serum sodium after 4 hours
[2024-10-08] MEDS: ALBUMIN 25% 25 GM/100 ML VIAL IV ONE (20:57)
[2024-10-08 21:45] LABS: Potassium 3.4 mmol/L (3.5-5.1)
[2024-10-08 22:29] LABS: Thyroid Stimulating Hormone 1.202 uIu/ml (0.300-4.500)
[2024-10-09 00:15] LABS: Amorphous Sediment Urine Present (None Prsent); Appearance Urine Turbid (Clear); Bacteria Urine Automated None Seen (None Seen); Bilirubin Urine Negative (Negative); Blood Urine 1+ (Negative); Color Urine Yellow; Glucose Urine UA Negative (Negative); Granular Casts Urine Present /lpf (None Prsent); Ketones Urine Negative (Negative); Leukocyte Esterase Urine Trace (Negative); Nitrite Urine Negative (Negative); Protein Urine 2+ (Negative); Specific Gravity Urine 1.019 (1.000-1.030); Urobilinogen Urine Negative (Negative); pH Urine 5.5 (4.5-7.5)
[2024-10-09] MEDS: POTASSIUM CHLORIDE CRTAB 20 MEQ TABCR PO STA (02:09)
[2024-10-09] MEDS: MAGNESIUM SULFATE / D5W 1 GM/100 ML BAG IV ONE (02:09)
[2024-10-09 06:45] LABS: Hematocrit (blood only) 42.6 % (37.0-47.0); Hemoglobin 14.9 g/dl (12.0-16.0); Mean Corpuscular Volume 79.9 fL (80.0-100.0); Mean Platelet Volume 11.5 fL (9.4-12.4); Platelet Count 109 K/uL (130-400); RDW Coefficient of Variation 13.6 % (11.5-14.5); RDW Standard Deviation 39.3 fL (36.4-46.3); Red Blood Count 5.33 M/uL (4.20-5.40); White Blood Count 19.63 K/ul (4.8-10.8)
[2024-10-09 07:06] LABS: BUN Creatinine Ratio 22.2 (10-20); Creatinine Clr Calc Pharmacy 42.9 ml/min; Potassium 3.7 mmol/L (3.5-5.1)
[2024-10-09 07:33] LABS: Basophils # (auto) 0.05 K/uL (0.00-0.20); Basophils % (auto) 0.3 %; Echinocytes 1+; Eosinophils # (auto) 0.08 K/uL (0.00-0.50); Eosinophils % (auto) 0.4 %; Immature Granulocytes # (auto) 0.38 K/uL (0.01-0.20); Immature Granulocytes % (auto) 1.9 %; Lymphocytes # (auto) 0.83 K/uL (1.20-3.40); Lymphocytes % (auto) 4.2 %; Monocytes # (auto) 0.52 K/uL (0.11-0.59); Monocytes % (auto) 2.6 %; Neutrophils # (auto) 17.77 K/uL (1.40-6.50); Neutrophils % (auto) 90.6 %; Polychromasia 1+
[2024-10-09] MEDS: PLASMA-LYTE A 1,000 ML IV SCH (09:20)
[2024-10-09] MEDS: LANTUS PER UNIT CHARGE SC SCH (09:34)
--- NOTE | 2024-10-09 09:51 | Hospitalist Progress Note ---
Date of Service October 09, 2024 Assessment & Plan (1) Acute hyperglycemia: (2) Insulin dependent type 2 diabetes mellitus: (3) Sepsis: (4) Acute colitis: (5) Hypertensive urgency: (6) Abnormal urinalysis: (7) Prolonged QT interval: (8) Hypomagnesemia: (9) Elevated troponin: Plan Jovita Rose is a 63y/o F with PMHx significant for aortic stenosis s/p TAVR [2017], CAD s/p drug-eluting stent to LAD, HFpEF, DM type II, hypothyroidism, HLD, liver cirrhosis 2/2 LEYVA, HTN, questionable paroxysmal atrial fibrillation, DANYELLE intolerant to CPAP, CKD stage III, benign paroxysmal positional vertigo 2/2 bilateral vestibular disorder, schizoaffective disorder, history of breast cancer s/p bilateral mastectomies + chemoradiation [2007], history of colon cancer s/p colon resection, history of GI bleed, history of C. difficile infection and splenic infarcts who presented to the ED via EMS on 10/07/24 with multiple complaints including nausea/vomiting, hyperglycemia and diarrhea. Of note, patient was recently discharged from our service on 10/03/24; she was admitted with strokelike symptoms which were thought to be as a result of hyperglycemia ISO uncontrolled, insulin-dependent DM type II. Stroke work-up was completely unremarkable. She was discharged home with [facility] services following that admission. C. difficile colitis Sepsis secondary to C. difficile Patient meets sepsis criteria 2/2 tachycardia, WBC>12k + evidence of diffuse colitis on CTAP. Patient with diarrhea x 2 days. CXR unremarkable. CTAP revealed diffuse colitis (no free air or abscess). C. difficile positive. UTI ruled out; culture negative. Blood cx- NGTD Discussed with pharmacy who reviewed the case with [employer] process consultant (Dr. Herrera); patient has significant C. difficile colitis with no other source of infection at this time. Started on oral vancomycin 500 mg every 6 hours along with IV Flagyl. Monitor response. Blood cx negative. Continue on maintenance IV fluid with Plasma-Lyte at 60cc/h due to diarrhea Monitor Urine output Acute Hyperglycemia ISO Uncontrolled Insulin-Dependent DMII: Patient with known history of uncontrolled insulin-dependent DMII. Patient's outpatient insulin regimen is 44U of insulin degludec daily and 24U of insulin aspart TIDM. Patient reports that she has been unable to monitor her BSG at home since her discharge last week as her glucometer was not working; Started on Lantus/NovoLog. Pharmacy on board. Hyponatremia-serum sodium down trended to 126 on October 08, 2023; Plasma-Lyte was discontinued. Urine osm of 410 mosm/kg Serum sodium improved to 130. Will monitor BMP in afternoon. Continue IV fluids for now given diarrhea. Abnormal Urinalysis: Patient denies any signs or symptoms of UTI. Antibiotics discontinued Prolonged QT Interval: QTc prolonged at 534ms on presenting EKG. Holding home tr azodone, duloxetine and meclizine. Repeat EKG from 10/09 shows improved QTc of 485 ms Hypomagnesemia: Repleted Elevated Troponin: Initial troponin 20.7; presenting EKG with no evidence of acute ST changes. Likely demand ischemia ISO acute illness and dehydration Chronic HFpEF, Aortic Stenosis S/P TAVR, HTN: Previous ALMA from 05/2023 --> LVEF of 55 to 59%, no LV segmental wall motion abnormalities. Continue metoprolol tartrate 50mg BID as per above, ASA 81mg daily and atorvastatin 40mg daily. DVT Prophylaxis: SQ Heparin Code Status: FULL CODE PCP: Gregory Rausch MD Discussed with daughter at bedside. Time spent evaluating patient, direct bedside care, chart review, placing orders, interpretation of diagnostic studies, discussion with consultants, patient, and family members, as well as other required patient management activities is 50 minutes Please note the above document was generated using voice recognition software. It may contain grammatical, syntax or spelling errors. Any formal questions or concerns about the content, text or information contained within the body of this dictation should be directly addressed to the provider for clarification Admission and Anticipated Discharge Date Admission Date: October 07, 2024 Subjective Patient seen and examined at bedside. Blood pressure trend is overall better. Continues to have multiple episode of loose bowel movements Patient was febrile overnight Review of Systems Review of Systems: All systems reviewed & are unremarkable except as noted in Subjective Physical Exam Physical Exam: Constitutional: Awake, alert oriented x 3. Appears comfortable. Respiratory: Bilateral vesicular breath sound. Cardiovascular: RRR, no murmur, no edema Vessels: no JVD or carotid bruit Chest: normal inspection of chest Abdomen: slightly tender in RLQ, BS present Musculoskeletal: no cyanosis or clubbing, extremities motor strength 5/5 Skin: no rashes, warm and dry normal turgor Neurologic: PERRL, EOMI, accommodation nl, no face palsy, no dysarthria CN's II- XI intact bilaterally and moves all extremities Psychiatric: A+Ox3, euthymic affect Results & Data Results & Data Vital Signs (Past 12 Hours) Vital Signs Temp Pulse Pulse Resp BP Pulse Ox O2 Del Method 10/09/24 03:25 37.1 C 72 19 115/67 97 Room Air 10/08/24 23:21 37.8 C H 102 H 19 145/81 H 93 Room Air 10/08/24 22:45 Room Air 10/08/24 22:43 106 H 26 H 94 FiO2 10/09/24 03:25 10/08/24 23:21 10/08/24 22:45 10/08/24 22:43 21 (3) Sepsis Sepsis acute organ dysfunction status: unspecified Sepsis type: sepsis due to unspecified organism Qualified Code(s): A41.9 - Sepsis, unspecified organism
[2024-10-09 15:26] LABS: BUN Creatinine Ratio 23.1 (10-20); Calcium 7.8 mg/dl (8.6-10.3); Creatinine Clr Calc Pharmacy 42.9 ml/min; Potassium 4.5 mmol/L (3.5-5.1)
[2024-10-09] MEDS: SODIUM CHLORIDE 0.9% 500 ML IV SCH (18:00)
[2024-10-09 23:52] LABS: BUN Creatinine Ratio 24.4 (10-20); Calcium 7.7 mg/dl (8.6-10.3); Creatinine Clr Calc Pharmacy 51.5 ml/min; Potassium 3.5 mmol/L (3.5-5.1)
[2024-10-10 07:38] LABS: Hematocrit (blood only) 46.7 % (37.0-47.0); Hemoglobin 16.2 g/dl (12.0-16.0); Mean Corpuscular Hemoglobin 27.6 pg (25.0-34.0); Mean Corpuscular Hgb Conc 34.7 g/dL (32.0-36.0); Mean Corpuscular Volume 79.4 fL (80.0-100.0); Mean Platelet Volume 11.2 fL (9.4-12.4); Platelet Count 136 K/uL (130-400); RDW Coefficient of Variation 14.2 % (11.5-14.5); RDW Standard Deviation 40.7 fL (36.4-46.3); Red Blood Count 5.88 M/uL (4.20-5.40); White Blood Count 25.75 K/ul (4.8-10.8)
[2024-10-10 08:04] LABS: BUN Creatinine Ratio 23.2 (10-20); Calcium 8.4 mg/dl (8.6-10.3); Creatinine Clr Calc Pharmacy 49.6 ml/min; Potassium 4.4 mmol/L (3.5-5.1)
[2024-10-10 08:10] LABS: Acanthocytes 2+; Basophils # (auto) 0.11 K/uL (0.00-0.20); Basophils % (auto) 0.4 %; Echinocytes 2+; Eosinophils # (auto) 0.01 K/uL (0.00-0.50); Immature Granulocytes # (auto) 0.89 K/uL (0.01-0.20); Immature Granulocytes % (auto) 3.5 %; Lymphocytes # (auto) 1.56 K/uL (1.20-3.40); Lymphocytes % (auto) 6.1 %; Monocytes # (auto) 0.85 K/uL (0.11-0.59); Monocytes % (auto) 3.3 %; Neutrophils # (auto) 22.33 K/uL (1.40-6.50); Neutrophils % (auto) 86.7 %; Polychromasia 1+; Tear Drop Cells 1+
[2024-10-10] MEDS: SODIUM CHLORIDE 0.9% 500 ML IV SCH (09:03)
[2024-10-10] MEDS: OPTIRAY 320 100ml IV ONE (10:12)
--- NOTE | 2024-10-10 11:50 | CT Scan Report ---
ABDOMEN AND PELVIS CT WITH IV CONTRAST CT DOSE: 1187.51 mGy.cm HISTORY: Acute onset abdominal pain with possible colitis Follow up on progression of colitis TECHNIQUE: Multiaxial CT images of the abdomen and pelvis were performed following the IV administrat ion of 90 cc of Optiray, A dose lowering technique was utilized adhering to the principles of ALARA. COMPARISON STUDY: 10/07/2024, 06/05/2024 FINDINGS: Partially imaged left breast implant with pericapsular soft tissue thickening and small per icapsular collection which is similar to prior. Clear lung bases. Cardiomegaly with retained epicardi al leads. No pneumatosis or pneumoperitoneum. The spleen is enlarged, 16 cm. Subcentimeter ill-define d hypodense focus of the mid spleen is unchanged and likely benign. Unremarkable pancreas and left ad renal gland. Right adrenal myelolipoma, 1.6 cm. There are a few small cysts noted within the liver. M ild marginal nodularity of the liver may represent early cirrhosis. Patency of the hepatic and portal veins. Unremarkable gallbladder. Right renal cysts are noted. There is a 2.6 cm exophytic mildly hyperdense lesion of the right kidney which is unchanged and favors a complex cyst. 5 mm nonobstructing calculus of the inferior pole righ t kidney. No hydronephrosis. Decompressed urinary bladder with Deutsch catheter in place. Hysterectomy. Atherosclerosis of the aorta without aneurysm. Mild distal esophageal wall thickening with small hiatal hernia. There is progressively worsened circ umferential wall thickening of the rectum and majority of the large bowel with adjacent pericolonic a nd perirectal inflammatory stranding. Progressive small amount of abdominal pelvic ascites. Fluid-mendoza led loops of small bowel are noted with a few loops of small bowel wall thickening also present. A no rmal appendix is not visualized. Previously noted cystic structure adjacent to the cecum is obscured by the ascites. No acute fracture. Mild generalized body wall edema. IMPRESSION: 1. Progressive worsening of the likely infectious or inflammatory pancolitis with probable associated mild enteritis. 2. Small amount of abdominopelvic ascites has progressed from 10/07/2024. 3. No bowel obstruction or pneumoperitoneum. 4. Right nephrolithiasis without hydronephrosis. ACT 112: Negative or not required by law. The above report was generated using voice recognition software. It may contain grammatical, syntax o r spelling errors. Electronically signed by: Rafa Leslie M.D. 10/10/2024 11:43 AM
--- NOTE | 2024-10-10 12:27 | Surgery Consultation ---
Date of Consultation October 10, 2024 Assessment & Plan (1) C. difficile colitis: Her CT images and results 10/07 10/10 personally by myself She has had some pressure in the colon, however minimal dilation of her colon throughout Her abdominal exam is fairly benign at this time she is not requiring vasopressor support had a fever last 24 hours Will get daily KUBs dilation Trend her labs as her leukocytosis is increasing Would only entertain surgical intervention if she begins having signs of severe sepsis with hypotension and fever or has signs of ischemic bowel Surgery will follow along History of Present Illness Reason for Consultation: C. difficile colitis Attending Physician: Vargas Ivory MD History of Present Illness This is a 63-year-old female who was admitted 3 days ago with generalized abdominal pain. She states the pain is sharp and constant. She was found to have C. difficile colitis and has been on treatment last 3 days for this. She states she has had some nausea without emesis. No aggravating or relieving factors to the pain. Her white blood cell count has slowly trended upwards. Afebrile. Any pressor support. Prolactin normal. Previous abdominal surgeries including partial colectomy colon cancer, exploratory laparotomy for possible foreign body removal, 4 C-sections and appendectomy total abdominal hysterectomy. Allergies Allergy/AdvReac Type Severity Reaction Status Date / Time glycerin Allergy Intermediate ITCHING, Verified 11/10/23 00:17 BURNING FROM TOPICALS lactose Allergy Intermediate Gastrointestinal Verified 11/10/23 00:17 Upset Penicillins Allergy Intermediate Rash Verified 11/10/23 00:17 adhesive tape AdvReac Intermediate CAN NOT Verified 11/10/23 00:17 TOLERATE BANDAIDS lisinopril AdvReac Intermediate Cough Verified 11/10/23 00:17 monosodium glutamate AdvReac Intermediate EDEMA OF Verified 11/10/23 00:17 HANDS & FEET Home Medications Medication Instructions Recorded Confirmed Type atorvastatin 40 mg tablet (Lipitor) 40 mg PO DAILY 05/02/19 10/07/24 History clopidogrel 75 mg tablet (Plavix) 75 mg PO DAILY 05/02/19 10/07/24 History levothyroxine 75 mcg tablet 75 mcg PO DAILY 05/02/19 10/07/24 History meclizine 25 mg tablet 50 mg PO BID 05/02/19 10/07/24 History magnesium oxide 400 mg PO DAILY 02/14/23 10/07/24 History trazodone 100 mg tablet 300 mg PO HS PRN Insomnia 02/14/23 10/07/24 History flash glucose scanning reader #1 ea 02/15/23 10/07/24 Rx (FreeStyle Keisha 2 Hollins) ammonium lactate 12 % lotion 1 applic topical DAILY 06/03/23 10/07/24 History aspirin 81 mg tablet,delayed 81 mg PO DAILY 06/03/23 10/07/24 History release cranberry extract-vitamin C 250 2 cap PO TID 06/03/23 10/07/24 History mg-60 mg capsule (Azo Cranberry Plus Vit C) fluticasone propionate 50 2 spray intranasal DAILY 06/03/23 10/07/24 History mcg/actuation nasal spray,suspension insulin degludec 200 unit/mL (3 44 unit subcut HS 06/03/23 10/09/24 History mL) subcutaneous pen (Tresiba FlexTouch U-200 insulin) melatonin 10 mg tablet 10 mg PO HS 06/03/23 10/07/24 History multivitamin with minerals 1 tab PO DAILY 06/03/23 10/07/24 History nystatin 100,000 unit/gram topical 1 applic topical DIRECTED PRN 06/03/23 10/07/24 History powder Skin Irritation semaglutide 2 mg/dose (8 mg/3 mL) 2 mg subcut WK 06/03/23 10/07/24 History subcutaneous pen injector (Ozempic) Al hyd-Mg tr-alg ac-sod bicarb 80 1 tab PO DIRECTED PRN Gi Upset 10/27/23 10/07/24 History mg-14.2 mg chewable tablet (Gaviscon) insulin aspart U-100 100 unit/mL 24 unit subcut TIDM 50 UNITS/DAILY 10/27/23 10/07/24 History (3 mL) subcutaneous pen (Novolog FlexPen U-100 Insulin aspart) metoprolol tartrate 25 mg tablet 50 mg PO BID 10/27/23 10/07/24 History gabapentin 300 mg capsule 300 mg PO TID 06/05/24 10/07/24 History potassium chloride 10 mEq 10 meq PO BID 06/05/24 10/07/24 History tablet,extended release(part/cryst) (Klor-Con M) Lactobacillus acidophilus 1 1,000 mmu cells PO DAILY #30 caps 06/10/24 10/07/24 Rx billion cell capsule duloxetine 20 mg capsule,delayed 20 mg PO DAILY 10/01/24 10/07/24 History release topiramate 25 mg tablet 25 mg PO HS 10/01/24 10/07/24 History Patient History Medical History Irritable bowel syndrome with diarrhea Failure of outpatient treatment C. difficile colitis Pancolitis Pancolitis C. difficile diarrhea Acute diarrhea DM II (diabetes mellitus, type II), controlled Diastolic congestive heart failure Atrial fibrillation with rapid ventricular response Aortic stenosis CAD (coronary artery disease) Dyslipidemia Colon cancer Acute hyperglycemia Hypomagnesemia Hypokalemia Intertrigo Chest pain Pulmonary embolism Altered mental status UTI (urinary tract infection) Pleuritic chest pain CKD (chronic kidney disease) stage 3, GFR 30-59 ml/min IDDM (insulin dependent diabetes mellitus) Uterine cancer 2014--sx, no chemo/radiation Breast cancer, right breast 2007--Sx, chemo/radiation Colon cancer 2004--sx, no chemo or radiation Liver cirrhosis non-alcoholic Hypothyroidism Diabetes mellitus, type 2 On anticoagulant therapy Cataract of both eyes Depression Anxiety Aortic valve stenosis Cardiac murmur Follows with Dr. Muniz Hyperlipidemia Hypertension Sleep apnea Cpap Depression with anxiety DANYELLE (obstructive sleep apnea) Hypothyroidism HTN (hypertension) Surgical History Presence of stent in coronary artery S/P TAVR (transcatheter aortic valve replacement) History of cardiac cath x2--[address] [facility] 07/2017 @ [facility]-no stent, follows with Dr. Muniz S/P foot surgery, right "foot was widening" History of section x4 H/O breast surgery L implant infected and was removed History of breast reconstruction Bilt breast after masectomy History of bilateral tubal ligation History of dilatation and curettage History of carpal tunnel release bilt History of colonoscopy History of esophagogastroduodenoscopy (EGD) History of total abdominal hysterectomy and bilateral salpingo-oophorectomy 2014 D/T uterine cancer H/O breast biopsy right--malignant H/O bilateral mastectomy 01/2008--breast cancer History of bowel resection 2004 @ [facility] [place] d/t Colon Cancer History of appendectomy History of open heart surgery 2011 @ [facility] [place] H/O aortic valve replacement 06/2017 @ [facility] [place] H/O aortic valve replacement #25 Manga aortic valve bioprosthesis placed in 2010, and 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 On 11/06/2017 she underwent transcatheter aortic valve replacement receiving a 26 mm Hernandez-Bing S3 prosthesis Family History Grandmother Family history of diabetes mellitus maternal Family/Other Family history of diabetes mellitus paternal aunt Father , of premature CAD Coronary heart disease Mother , of premature CAD Coronary heart disease Social History Smoking Status: Never smoker Second Hand Exposure: No; Do You Dip or Chew Tobacco: No; Tobacco Cessation Education Requested by Patient: No Hx Alcohol Use: No Hx Substance Use: No Preferred Language: Kiswahili Communication Ability: Effective Internet Marketing Intern Required: No Beliefs That Will Affect Care: None marital status: Single marital status details: has fiance Current Living Situation: Alone Current Living Situation Comment: Home alone Other Information That Helps Us Care for You: No Feels Safe at Home: Yes Safety Concerns: Feels Safe At This Time Assistive Devices: Cane, CPAP and Walker Review of Systems Constitutional: no fever and no chills Eyes: no blind spots and no dry eyes Ear, Nose, Mouth, Throat: no ear pain and no hearing loss Respiratory: no cough and no dyspnea Cardiovascular: no chest pain and no dyspnea on exertion Gastrointestinal: + abdominal pain and + diarrhea/loose st ools; no nausea, no vomiting, no constipation, no blood in stools and no melena Genitourinary: no dysuria and no urinary urgency Musculoskeletal: no back pain and no neck pain Integumentary: no acne, no sores and no dry skin Neurologic: no gait abnormality, no loss of sensation and no paresthesia Psychiatric: no behavioral changes and no depression Hematologic / Lymphatic: no easy bleeding and no easy bruising Physical Exam Constitutional: WD/WN, vitals as above Eyes: PERRL, conjunctivae normal, anicteric sclerae ENMT: external ear and nose normal, oropharynx normal Neck: trachea midline, no thyromegaly Respiratory: normal respiratory effort, lungs clear to auscultation Cardiovascular: RRR, no murmur, no edema Gastrointestinal (Abdomen): Inspection/Auscultation: abdomen normal to inspection; abdomen not distended Percussion/Palpation: + abdomen tender (Mild generalized) and abdomen soft; no guarding and no hernia Midline abdominal scar Musculoskeletal: no cyanosis or clubbing, extremities motor strength 5/5 Skin: no rashes, warm and dry Neurologic: PERRL, EOMI, accommodation nl, no face palsy, no dysarthria Psychiatric: A+Ox3, euthymic affect Results & Data Vital Signs (Past 12 Hours) Vital Signs Temp Pulse Pulse Resp BP Pulse Ox O2 Del Method 10/10/24 08:00 67 10/10/24 07:40 36.7 C 72 17 171/75 H 96 Room Air 10/10/24 02:29 69 20 97 10/10/24 02:18 36.4 C L 67 16 134/82 97 CPAP PG Care Time/CCT Total # of Minutes Spent Total Time Spent with Patient: Total time spent is greater than 50% in coordination of care (as documented) at patient's floor/unit and/or counseling patient: Coding Level of Care Code 44390 INT INP/OBS CARE 75MIN Diagnoses C. difficile colitis A04.72
--- NOTE | 2024-10-10 12:42 | Infectious Disease Consult ---
Date of Service October 10, 2024 Telehealth Information I performed this visit using a real-time telehealth connection between my location and the patients location ([facility]). After connecting through interactive tele-video, patient was identified by name and date of and/or wristband check.Patient (or authorized healthcare quality audit representative) was informed that this was a telemedicine visit and it was being conducted confidentially over secure lines. My office door was closed and no one else was present in the room with me.Patient (or authorized healthcare quality audit representative) provided consent to proceed with the visit, expressed an understanding of privacy and security of the telemedicine visit, and gave permission to have a hospital quality audit representative in the room in order to assist with the visit and to conduct portions of the visit, as needed. I informed the patient (or authorized healthcare quality audit representative) that I reviewed their record and presented the opportunity for them to ask any questions regarding the visit today. The patient agreed to participate. Assessment & Plan (1) C. difficile colitis: (2) Acute colitis: (3) Insulin dependent type 2 diabetes mellitus: (4) Leukocytosis: Plan Assessment: Jovita Rose is a 63y/o F with PMHx significant for aortic stenosis s/p TAVR [2017], CAD s/p drug-eluting stent to LAD, HFpEF, DM type II, hypothyroidism, HLD, liver cirrhosis 2/2 LEYVA, HTN, questionable paroxysmal atrial fibrillation, DANYELLE intolerant to CPAP, CKD stage III, benign paroxysmal positional vertigo 2/2 bilateral vestibular disorder, schizoaffective disorder, history of breast cancer s/p bilateral mastectomies + chemoradiation [2008], history of colon cancer s/p colon resection, history of GI bleed, history of C. difficile infection and splenic infarcts who presented to [facility] on 10/07/24 with multiple complaints including nausea/vomiting, hyperglycemia and diarrhea. At [facility], CXR unremarkable. CTAP revealed diffuse colitis (no free air or abscess). Check nasal MRSA swab. Lactate 2.5, procalcitonin negative. Reflex lactate pending. Blood cultures negative. Checking stool PCR, C. diff studies ISO diarrhea returned positive. Pt placed on Vancomycin 500 mg PO QID and Metronidazole 500 mg q8 IV due to raising WBC and CT imaging. Repeat CT abd/pelvis shows worsening godfrey-colitis despite appropriate treatment. Gen surgery consulted and recommend surgical intervention if patient's imaging and symptoms continue to worsen. Plan: 1. C. diff colitis concern for developing toxic megacolon - Agree with Vancomycin 500 mg PO QID and Metronidazole 500 mg IV q8, please add Vancomycin 500 mg CA (Per Rectum) q8 to try to prevent progression. - Agree with Surgical consult and recommendation, if patient does not improve, recommend surgical intervention. - we will not actively monitor this patient or follow up, if additional recommendation are needed, please contact via tiger text or call. please call contact with all issues, concerns, or questions. History of Present Illness History of Present Illness Reason for consult: severe c.diff inf Jovita Rose is a 63y/o F with PMHx significant for aortic stenosis s/p TAVR [2017], CAD s/p drug-eluting stent to LAD, HFpEF, DM type II, hypothyroidism, HLD, liver cirrhosis 2/2 LEYVA, HTN, questionable paroxysmal atrial fibrillation, DANYELLE intolerant to CPAP, CKD stage III, benign paroxysmal positional vertigo 2/2 bilateral vestibular disorder, schizoaffective disorder, history of breast cancer s/p bilateral mastectomies + chemoradiation [2007], history of colon cancer s/p colon resection, history of GI bleed, history of C. difficile infection and splenic infarcts who presented to [facility] on 10/07/24 with multiple complaints including nausea/vomiting, hyperglycemia and diarrhea. At [facility], CXR unremarkable. CTAP revealed diffuse colitis (no free air or abscess). Check nasal MRSA swab. Lactate 2.5, procalcitonin negative. Reflex lactate pending. Blood cultures negative. Checking stool PCR, C. diff studies ISO diarrhea returned positive. Pt placed on Vancomycin 500 mg PO QID and Metronidazole 500 mg q8 IV due to raising WBC and CT imaging. Repeat CT abd/pelvis shows worsening godfrey-colitis despite appropriate treatment. Gen surgery consulted and recommend surgical intervention if patient's imaging and symptoms continue to worsen. ID consult for evaluation and management. Allergies Allergy/AdvReac Type Severity Reaction Status Date / Time glycerin Allergy Intermediate ITCHING, Verified 11/10/23 00:17 BURNING FROM TOPICALS lactose Allergy Intermediate Gastrointestinal Verified 11/10/23 00:17 Upset Penicillins Allergy Intermediate Rash Verified 11/10/23 00:17 adhesive tape AdvReac Intermediate CAN NOT Verified 11/10/23 00:17 TOLERATE BANDAIDS lisinopril AdvReac Intermediate Cough Verified 11/10/23 00:17 monosodium glutamate AdvReac Intermediate EDEMA OF Verified 11/10/23 00:17 HANDS & FEET Home Medications Medication Instructions Recorded Confirmed Type atorvastatin 40 mg tablet (Lipitor) 40 mg PO DAILY 05/02/19 10/07/24 History clopidogrel 75 mg tablet (Plavix) 75 mg PO DAILY 05/02/19 10/07/24 History levothyroxine 75 mcg tablet 75 mcg PO DAILY 05/02/19 10/07/24 History meclizine 25 mg tablet 50 mg PO BID 05/02/19 10/07/24 History magnesium oxide 400 mg PO DAILY 02/14/23 10/07/24 History trazodone 100 mg tablet 300 mg PO HS PRN Insomnia 02/14/23 10/07/24 History flash glucose scanning reader #1 ea 02/15/23 10/07/24 Rx (Xanodyne Keisha 2 [place]) ammonium lactate 12 % lotion 1 applic topical DAILY 06/03/23 10/07/24 History aspirin 81 mg tablet,delayed 81 mg PO DAILY 06/03/23 10/07/24 History release cranberry extract-vitamin C 250 2 cap PO TID 06/03/23 10/07/24 History mg-60 mg capsule (Azo Cranberry Plus Vit C) fluticasone propionate 50 2 spray intranasal DAILY 06/03/23 10/07/24 History mcg/actuation nasal spray,suspension insulin degludec 200 unit/mL (3 44 unit subcut HS 06/03/23 10/09/24 History mL) subcutaneous pen (Tresiba FlexTouch U-200 insulin) melatonin 10 mg tablet 10 mg PO HS 06/03/23 10/07/24 History multivitamin with minerals 1 tab PO DAILY 06/03/23 10/07/24 History nystatin 100,000 unit/gram topical 1 applic topical DIRECTED PRN 06/03/23 10/07/24 History powder Skin Irritation semaglutide 2 mg/dose (8 mg/3 mL) 2 mg subcut WK 06/03/23 10/07/24 History subcutaneous pen injector (Ozempic) Al hyd-Mg tr-alg ac-sod bicarb 80 1 tab PO DIRECTED PRN Gi Upset 10/27/23 10/07/24 History mg-14.2 mg chewable tablet (Gaviscon) insulin aspart U-100 100 unit/mL 24 unit subcut TIDM 50 UNITS/DAILY 10/27/23 10/07/24 History (3 mL) subcutaneous pen (Novolog FlexPen U-100 Insulin aspart) metoprolol tartrate 25 mg tablet 50 mg PO BID 10/27/23 10/07/24 History gabapentin 300 mg capsule 300 mg PO TID 06/05/24 10/07/24 History potassium chloride 10 mEq 10 meq PO BID 06/05/24 10/07/24 History tablet,extended release(part/cryst) (Klor-Con M) Lactobacillus acidophilus 1 1,000 mmu cells PO DAILY #30 caps 06/10/24 10/07/24 Rx billion cell capsule duloxetine 20 mg capsule,delayed 20 mg PO DAILY 10/01/24 10/07/24 History release topiramate 25 mg tablet 25 mg PO HS 10/01/24 10/07/24 History Patient History Medical History Irritable bowel syndrome with diarrhea Failure of outpatient treatment C. difficile colitis Pancolitis Pancolitis C. difficile diarrhea Acute diarrhea DM II (diabetes mellitus, type II), controlled Diastolic congestive heart failure Atrial fibrillation with rapid ventricular response Aortic stenosis CAD (coronary artery disease) Dyslipidemia Colon cancer Acute hyperglycemia Hypomagnesemia Hypokalemia Intertrigo Chest pain Pulmonary embolism Altered mental status UTI (urinary tract infection) Pleuritic chest pain CKD (chronic kidney disease) stage 3, GFR 30-59 ml/min IDDM (insulin dependent diabetes mellitus) Uterine cancer 2014--sx, no chemo/radiation Breast cancer, right breast 2007--Sx, chemo/radiation Colon cancer 2004--sx, no chemo or radiation Liver cirrhosis non-alcoholic Hypothyroidism Diabetes mellitus, type 2 On anticoagulant therapy Cataract of both eyes Depression Anxiety Aortic valve stenosis Cardiac murmur Follows with Dr. Muniz Hyperlipidemia Hypertension Sleep apnea Cpap Depression with anxiety DANYELLE (obstructive sleep apnea) Hypothyroidism HTN (hypertension) Surgical History Presence of stent in coronary artery S/P TAVR (transcatheter aortic valve replacement) History of cardiac cath x2--2010 @ [facility] 07/2017 @ [facility]-no stent, follows with Dr. Muniz S/P foot surgery, right "foot was widening" History of section x4 H/O breast surgery L implant infected and was removed History of breast reconstruction Bilt breast after masectomy History of bilateral tubal ligation History of dilatation and curettage History of carpal tunnel release bilt History of colonoscopy History of esophagogastroduodenoscopy (EGD) History of total abdominal hysterectomy and bilateral salpingo-oophorectomy 2014 D/T uterine cancer H/O breast biopsy right--malignant H/O bilateral mastectomy 01/2008--breast cancer History of bowel resection 2004 @ [facility] [place] d/t Colon Cancer History of appendectomy History of open heart surgery 2011 @ [facility] [place] H/O aortic valve replacement 06/2017 @ [facility] [place] H/O aortic valve replacement #25 Manga aortic valve bioprosthesis placed in 2010, and 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 On 11/06/2017 she underwent transcatheter aortic valve replacement receiving a 26 mm Hernandez-Bing S3 prosthesis Family History Grandmother Family history of diabetes mellitus maternal Family/Other Family history of diabetes mellitus paternal aunt Father , of premature CAD Coronary heart disease Mother , of premature CAD Coronary heart disease Social History Smoking Status: Never smoker Second Hand Exposure: No; Do You Dip or Chew Tobacco: No; Tobacco Cessation Education Requested by Patient: No Hx Alcohol Use: No Hx Substance Use: No Preferred Language: Surinamese Communication Ability: Effective Extension Educator Required: No Beliefs That Will Affect Care: None marital status: Single marital status details: has fiance Current Living Situation: Alone Current Living Situation Comment: Home alone Other Information That Helps Us Care for You: No Feels Safe at Home: Yes Safety Concerns: Feels Safe At This Time Assistive Devices: Cane, CPAP and Walker Review of Systems all ROS negative except for abd pain and diarrhea. Physical Exam NA Results & Data Vital Signs (Past 12 Hours) Vital Signs Temp Pulse Pulse Resp BP Pulse Ox O2 Del Method 10/10/24 08:00 67 10/10/24 07:40 36.7 C 72 17 171/75 H 96 Room Air 10/10/24 02:29 69 20 97 10/10/24 02:18 36.4 C L 67 16 134/82 97 CPAP Laboratory Results C. diff PCR positive on 10/08/2024 10/07/24 16:27 Aerobic Blood Culture - Preliminary Blood No growth in Aerobic bottle after 48 hours. Anaerobic Blood Culture - Final 10/07/24 16:27 Aerobic Blood Culture - Preliminary Blood No growth in Aerobic bottle after 48 hours. Anaerobic Blood Culture - Final 10/10/24 10/10/24 10/10/24 14:18 12:36 11:32 WBC RBC Hgb Hct MCV MCH MCHC RDW Std Deviation RDW Coeff of Valerio Plt Count MPV Immature Gran % (Auto) Neut % (Auto) Lymph % (Auto) [place] % (Auto) Eos % (Auto) Baso % (Auto) Neut # (Auto) Lymph # (Auto) [place] # (Auto) Eos # (Auto) Baso # (Auto) Immature Gran # (Auto) Polychromasia Tear Drop Cells Echinocytes Acanthocytes (Spur) Sodium Potassium Chloride Carbon Dioxide Anion Gap BUN Creatinine Est Cr Clr Drug Dosing eGFR BUN/Creatinine Ratio Glucose POC Glucose 144 H Lactate Cancelled Cancelled Calcium 10/10/24 10/10/24 10/09/24 07:36 06:59 23:23 WBC 25.75 H RBC 5.88 H Hgb 16.2 H Hct 46.7 MCV 79.4 L MCH 27.6 MCHC 34.7 RDW Std Deviation 40.7 RDW Coeff of Valerio 14.2 Plt Count 136 MPV 11.2 Immature Gran % (Auto) 3.5 Neut % (Auto) 86.7 Lymph % (Auto) 6.1 [place] % (Auto) 3.3 Eos % (Auto) 0.0 Baso % (Auto) 0.4 Neut # (Auto) 22.33 H Lymph # (Auto) 1.56 [place] # (Auto) 0.85 H Eos # (Auto) 0.01 Baso # (Auto) 0.11 Immature Gran # (Auto) 0.89 H Polychromasia 1+ Tear Drop Cells 1+ Echinocytes 2+ Acanthocytes (Spur) 2+ Sodium 132 L 130 L Potassium 4.4 D 3.5 D Chloride 101 103 Carbon Dioxide 26 20 L Anion Gap 5 7 BUN 23 22 Creatinine 0.99 0.90 Est Cr Clr Drug Dosing 49.6 51.5 eGFR 63.28 70.95 BUN/Creatinine Ratio 23.2 H 24.4 H Glucose 166 H 108 H POC Glucose 159 H Lactate Calcium 8.4 L 7.7 L 10/09/24 10/09/24 10/09/24 20:08 16:13 14:54 WBC RBC Hgb Hct MCV MCH MCHC RDW Std Deviation RDW Coeff of Valerio Plt Count MPV Immature Gran % (Auto) Neut % (Auto) Lymph % (Auto) [place] % (Auto) Eos % (Auto) Baso % (Auto) Neut # (Auto) Lymph # (Auto) [place] # (Auto) Eos # (Auto) Baso # (Auto) Immature Gran # (Auto) Polychromasia Tear Drop Cells Echinocytes Acanthocytes (Spur) Sodium 129 L Potassium 4.5 D Chloride 101 Carbon Dioxide 23 Anion Gap 5 BUN 25 H Creatinine 1.08 Est Cr Clr Drug Dosing 42.9 eGFR 57.00 BUN/Creatinine Ratio 23.1 H Glucose 203 H POC Glucose 112 H 166 H Lactate Calcium 7.8 L Diagnostic Findings Abdomen/Pelvis CT 10/10/24 08:[address] WITH IV CONTRAST CT DOSE: 1187.51 mGy.cm HISTORY: Acute onset abdominal pain with possible colitis Follow up on progression of colitis TECHNIQUE: Multiaxial CT images of the abdomen and pelvis were performed following the IV administration of 90 cc of Optiray, A dose lowering technique was utilized adhering to the principles of ALARA. COMPARISON STUDY: 10/07/2024, 06/05/2024 FINDINGS: Partially imaged left breast implant with pericapsular soft tissue thickening and small pericapsular collection which is similar to prior. Clear lung bases. Cardiomegaly with retained epicardial leads. No pneumatosis or pneumoperitoneum. The spleen is enlarged, 16 cm. Subcentimeter ill-defined hypodense focus of the mid spleen is unchanged and likely benign. Unremarkable pancreas and left adrenal gland. Right adrenal myelolipoma, 1.6 cm. There are a few small cysts noted within the liver. Mild marginal nodularity of the liver may represent early cirrhosis. Patency of the hepatic and portal veins. Unremarkable gallbladder. Right renal cysts are noted. There is a 2.6 cm exophytic mildly hyperdense lesion of the right kidney which is unchanged and favors a complex cyst. 5 mm nonobstructing calculus of the inferior pole right kidney. No hydronephrosis. Decompressed urinary bladder with Deutsch catheter in place. Hysterectomy. Atherosclerosis of the aorta without aneurysm. Mild distal esophageal wall thickening with small hiatal hernia. There is progressively worsened circumferential wall thickening of the rectum and majority of the large bowel with adjacent pericolonic and perirectal inflammator y stranding. Progressive small amount of abdominal pelvic ascites. Fluid-filled loops of small bowel are noted with a few loops of small bowel wall thickening also present. A normal appendix is not visualized. Previously noted cystic structure adjacent to the cecum is obscured by the ascites. No acute fracture. Mild generalized body wall edema. IMPRESSION: 1. Progressive worsening of the likely infectious or inflammatory pancolitis with probable associated mild enteritis. 2. Small amount of abdominopelvic ascites has progressed from 10/07/2024. 3. No bowel obstruction or pneumoperitoneum. 4. Right nephrolithiasis without hydronephrosis. ACT 112: Negative or not required by law. The above report was generated using voice recognition software. It may contain grammatical, syntax or spelling errors. Electronically signed by: Rafa Leslie M.D. 10/10/2024 11:43 AM Medications Administered Home Medications Medication Instructions Recorded Confirmed Last Taken atorvastatin 40 mg tablet (Lipitor) 40 mg PO DAILY 05/02/19 10/07/24 11/09/23 clopidogrel 75 mg tablet (Plavix) 75 mg PO DAILY 05/02/19 10/07/24 11/09/23 levothyroxine 75 mcg tablet 75 mcg PO DAILY 05/02/19 10/07/24 11/09/23 meclizine 25 mg tablet 50 mg PO BID 05/02/19 10/07/24 11/09/23 08:00 magnesium oxide 400 mg PO DAILY 02/14/23 10/07/24 11/09/23 trazodone 100 mg tablet 300 mg PO HS PRN Insomnia 02/14/23 10/07/24 11/08/23 flash glucose scanning reader #1 ea 02/15/23 10/07/24 Unknown (FreeStyle Keisha 2 [place]) ammonium lactate 12 % lotion 1 applic topical DAILY 06/03/23 10/07/24 11/09/23 aspirin 81 mg tablet,delayed 81 mg PO DAILY 09/10/23 01/14/25 02/16/24 release cranberry extract-vitamin C 250 2 cap PO TID 06/03/23 10/07/24 11/09/23 mg-60 mg capsule (Azo Cranberry Plus Vit C) fluticasone propionate 50 2 spray intranasal DAILY 06/03/23 10/07/24 11/09/23 mcg/actuation nasal spray,suspension insulin degludec 200 unit/mL (3 44 unit subcut HS 06/03/23 10/09/24 11/08/23 mL) subcutaneous pen (Tresiba FlexTouch U-200 insulin) melatonin 10 mg tablet 10 mg PO HS 06/03/23 10/07/24 11/08/23 multivitamin with minerals 1 tab PO DAILY 06/03/23 10/07/24 11/09/23 nystatin 100,000 unit/gram topical 1 applic topical DIRECTED PRN 06/03/23 10/07/24 Unknown powder Skin Irritation semaglutide 2 mg/dose (8 mg/3 mL) 2 mg subcut WK 06/03/23 10/07/24 11/05/23 subcutaneous pen injector ([employer]) Al hyd-Mg tr-alg ac-sod bicarb 80 1 tab PO DIRECTED PRN Gi Upset 10/27/23 10/07/24 Unknown mg-14.2 mg chewable tablet (Gaviscon) insulin aspart U-100 100 unit/mL 24 unit subcut TIDM 50 UNITS/DAILY 10/27/23 10/07/24 11/09/23 (3 mL) subcutaneous pen (Novolog FlexPen U-100 Insulin aspart) metoprolol tartrate 25 mg tablet 50 mg PO BID 10/27/23 10/07/24 11/09/23 08:00 gabapentin 300 mg capsule 300 mg PO TID 06/05/24 10/07/24 Unknown potassium chloride 10 mEq 10 meq PO BID 06/05/24 10/07/24 Unknown tablet,extended release(part/cryst) (Klor-Con M) Lactobacillus acidophilus 1 1,000 mmu cells PO DAILY #30 caps 06/10/24 10/07/24 Unknown billion cell capsule duloxetine 20 mg capsule,delayed 20 mg PO DAILY 10/01/24 10/07/24 Unknown release topiramate 25 mg tablet 25 mg PO HS 10/01/24 10/07/24 Unknown Active Medications Generic Name Dose Route Start Last [facility] Reason Stop Dose Admin Acetaminophen 650 mg 10/07/24 17:40 10/08/24 22:31 Acetaminophen 325 Mg Tab PO 11/06/24 17:39 650 mg Q4H PRN Administration Pain or Fever Aspirin 81 mg 10/08/24 09:00 10/10/24 10:48 Aspirin 81 Mg Ectab PO 11/07/24 08:59 81 mg DAILY EVGENY Administration Atorvastatin Calcium 40 mg 10/08/24 09:00 10/10/24 10:48 Atorvastatin 40 Mg Tab PO 11/07/24 08:59 40 mg DAILY EVGENY Administration Gallardo Syrup 5 ml 10/08/24 12:00 10/10/24 13:10 Gallardo Syrup 5 Ml Udp PO 10/18/24 11:59 5 ml Q6 EVGENY Administration Clopidogrel Bisulfate 75 mg 10/08/24 09:00 10/10/24 10:48 Clopidogrel Bisulfate 75 Mg Tab PO 11/07/24 08:59 75 mg DAILY EVGENY Administration Fluticasone Propionate 2 sprays 10/08/24 09:00 10/10/24 09:02 Fluticasone Propionate Na Spr 16 Gm Btl NA 11/07/24 08:59 2 sprays DAILY EVGENY Administration Gabapentin 300 mg 10/07/24 21:00 10/07/24 21:59 Gabapentin 300 Mg Cap PO 11/06/24 20:59 300 mg TID EVGENY Administration Heparin Sodium (Porcine) 5,000 units 10/07/24 21:00 10/10/24 09:01 Heparin Sod 5,000 Unit/0.5 Ml Vial SQ 11/06/24 20:59 5,000 units Q12 EVGENY Administration Promethazine HCl 6.25 mg in 50.25 mls @ 201 mls/hr 10/07/24 17:40 10/10/24 11:01 Phenergan IV 11/06/24 17:39 Infused Q6H PRN Infusion Nausea And Vomiting Metronidazole 500 mg in 100 mls @ 100 mls/hr 10/08/24 11:00 10/10/24 11:48 Flagyl IV 10/18/24 10:59 Infused Q8H EVGENY Infusion Sodium Chloride 500 mls @ 120 mls/hr 10/10/24 08:00 10/10/24 13:10 Nss IV 10/10/24 16:30 120 mls/hr .Q4H10M EVGENY Administration Insulin Aspart 0 units 10/10/24 13:00 10/10/24 13:11 Insulin Aspart Per Unit Charge SC 11/09/24 12:59 1 units Q6 EVGENY Administration Lactic Acid 1 gm 10/08/24 09:00 10/10/24 09:03 Ammonium Lactate 12% Lotion 225 Gm Btl EXT 11/07/24 08:59 1 gm DAILY EVGENY Administration Lactobacillus Acidophilus 1,250 mg 10/08/24 09:00 10/10/24 10:48 Advanced Probiotic 625 Mg Capsule PO 11/07/24 08:59 1,250 mg DAILY EVGENY Administration Levothyroxine Sodium 75 mcg 10/08/24 06:30 10/10/24 09:03 Levothyroxine Sodium 75 Mcg Tablet PO 11/07/24 06:29 75 mcg DAILYBB EVGENY Administration Metoprolol Tartrate 50 mg 10/07/24 21:00 10/10/24 10:47 Metoprolol Tartrate 50 Mg Tab PO 11/06/24 20:59 50 mg BID EVGENY Administration Multivitamins/Minerals 1 tab 10/08/24 09:00 10/10/24 10:48 Cerovite Adv Formula Tab PO 11/07/24 08:59 1 tab DAILY EVGENY Administration Nystatin 1 appln 10/07/24 15:34 10/09/24 05:50 Nystatin Powder 15gm Btl EXT 11/06/24 15:33 1 appln BID PRN Administration Skin Irritation Topiramate 25 mg 10/07/24 21:00 10/09/24 21:18 Topiramate 25 Mg Tab PO 11/06/24 20:59 25 mg HS EVGENY Administration Vancomycin HCl 500 mg 10/08/24 12:00 10/10/24 13:10 Vancomycin Hcl 500 Mg/10 Ml Soln PO 10/18/24 11:59 500 mg Q6 EVGENY Administration (4) Leukocytosis Leukocytosis type: unspecified Qualified Code(s): D72.829 - Elevated white blood cell count, unspecified
--- NOTE | 2024-10-10 12:49 | Gastroenterology Progress Note ---
Date of Service October 10, 2024 Assessment & Plan (1) C. difficile colitis: Plan: Patient has been on treatment for c diff the since Sunday. - continue to follow wbc. - would continue with vanco at this time. she has been on this for 2 days. - await pending KUB and lactate. Admission and Anticipated Discharge Date Admission Date: October 07, 2024 Supervising Physician Co-Signing Physician Notes Fulminant C. difficile. Patient currently on vancomycin for 2 days. There is often the leg between starting C. difficile therapy and improvement which likely preformed toxin typically 2 to 4 days. Patient's white count is up to 25,000. Fortunately creatinine not worsening. CT does show worsening colitis. Deciding on surgery in C. difficile poses difficulties patient as often end up with a subtotal colectomy. Hypotension with increasing pressure support, perforation absolute. From uptodate ....Certain laboratory values in the setting of CDI have been considered relative indications for surgery, also based upon associations with poor outcomes: White blood cell (WBC) count >50,000 cells/mL Serum lactate levels >5 mmol/L, which may be an indication of colonic ischemia Patient is abdominal examination today about the same. However she is more alert and awake which is a good sign. I will continue IV Flagyl and oral vancomycin. Check a CBC creatinine and lactate in a.m. will follow with you. Subjective Patient has had ongoing diarrhea. she has been moving her bowels about once an hour per nursing. wbc aleida to 25.75 this morning. she complains of some ongoing lower abdominal pain. rated 9/10. KUB and lactate ordered and pending. Review of Systems Review of Systems: All systems reviewed & are unremarkable except as noted in HPI & below Physical Exam Constitutional: WD/WN, vitals as above Respiratory: normal respiratory effort, lungs clear to auscultation Cardiovascular: Rate/Rhythm: regular rate and regular rhythm Gastrointestinal (Abdomen): lower abdominal tenderness, no guarding, soft, normal bowel sounds. Psychiatric: Orientation: alert and oriented x 3 Results & Data Results & Data Vital Signs (Past 12 Hours) Vital Signs Temp Pulse Pulse Resp BP Pulse Ox O2 Del Method 10/10/24 08:00 67 10/10/24 07:40 98.1 F 72 17 171/75 H 96 Room Air 10/10/24 02:29 69 20 97 10/10/24 02:18 97.5 F L 67 16 134/82 97 CPAP Coding Level of Care Code 55621 SUB INP/OBS CARE MIN Diagnoses C. difficile colitis A04.72
[2024-10-10] MEDS: INSULIN ASPART PER UNIT CHARGE SC SCH (13:11)
--- NOTE | 2024-10-10 13:15 | Hospitalist Progress Note ---
Date of Service October 10, 2024 Assessment & Plan (1) Acute hyperglycemia: (2) Insulin dependent type 2 diabetes mellitus: (3) Sepsis: (4) Acute colitis: (5) Hypertensive urgency: (6) Abnormal urinalysis: (7) Prolonged QT interval: (8) Hypomagnesemia: (9) Elevated troponin: Plan Jovita Rose is a 63y/o F with PMHx significant for aortic stenosis s/p TAVR [2017], CAD s/p drug-eluting stent to LAD, HFpEF, DM type II, hypothyroidism, HLD, liver cirrhosis 2/2 LEYVA, HTN, questionable paroxysmal atrial fibrillation, DANYELLE intolerant to CPAP, CKD stage III, benign paroxysmal positional vertigo 2/2 bilateral vestibular disorder, schizoaffective disorder, history of breast cancer s/p bilateral mastectomies + chemoradiation [2007], history of colon cancer s/p colon resection, history of GI bleed, history of C. difficile infection and splenic infarcts who presented to the ED via EMS on 10/07/24 with multiple complaints including nausea/vomiting, hyperglycemia and diarrhea. Of note, patient was recently discharged from our service on 10/03/24; she was admitted with strokelike symptoms which were thought to be as a result of hyperglycemia ISO uncontrolled, insulin-dependent DM type II. Stroke work-up was completely unremarkable. She was discharged home with [facility] services following that admission. C. difficile colitis Sepsis secondary to C. difficile Patient presented with multiple episode of diarrhea from home. History of recu rrent C. difficile infection CT abdomen pelvis on admission concerning for diffuse colitis on admission; no free air or abscess. C. difficile toxin positive Patient was admitted and was started on oral vancomycin 500 mg every 6 hours along with IV Flagyl. Repeat CT abdomen/pelvis obtained on 10/10 which is showed progressive worsening of the pancolitis. Continue on oral vancomycin every 6 hour along with IV Flagyl. Continue IV fluid with normal saline at 120 cc/h. Discussed with GI; recommended to check lactate level, KUB and recommended to continue current medication. Surgery on board for possible intervention in the future if patient's condition deteriorates. Infectious disease consulted as well; appreciate recommendation Acute Hyperglycemia ISO Uncontrolled Insulin-Dependent DMII: Patient with known history of uncontrolled insulin-dependent DMII. Patient's outpatient insulin regimen is 44U of insulin degludec daily and 24U of insulin aspart TIDM. Started on Lantus/NovoLog. Pharmacy on board. Hyponatremia-serum sodium down trended to 126 on October 08, 2023; Plasma-Lyte was discontinued. Urine osm of 410 mosm/kg Serum sodium improved. Continue IV fluids for now given diarrhea. Abnormal Urinalysis: Patient denies any signs or symptoms of UTI. Antibiotics discontinued Prolonged QT Interval: QTc prolonged at 534ms on presenting EKG. Holding home trazodone, duloxetine and meclizine. Repeat EKG from 10/09 shows improved QTc of 485 ms Hypomagnesemia: Repleted Elevated Troponin: Initial troponin 20.7; presenting EKG with no evidence of acute ST changes. Likely demand ischemia ISO acute illness and dehydration Chronic HFpEF, Aortic Stenosis S/P TAVR, HTN: Previous ALMA from 05/2023 --> LVEF of 55 to 59%, no LV segmental wall motion abnormalities. Continue metoprolol tartrate 50mg BID as per above, ASA 81mg daily and atorvastatin 40mg daily. DVT Prophylaxis: SQ Heparin Code Status: FULL CODE PCP: Gregory Rausch MD Discussed with daughter at bedside. I also offered to her siblings. She reported that she has been passing along with information with her siblings. Time spent evaluating patient, direct bedside care, chart review, placing orders, interpretation of diagnostic studies, discussion with consultants, patient, and family members, as well as other required patient management activities is 60 minutes Please note the above document was generated using voice recognition software. It may contain grammatical, syntax or spelling errors. Any formal questions or concerns about the content, text or information contained within the body of this dictation should be directly addressed to the provider for clarification Admission and Anticipated Discharge Date Admission Date: October 07, 2024 Subjective Patient seen and examined at bedside. She is awake, alert oriented x 3. Reports lower abdominal pain Afebrile in last 24 hours Blood pressure overall improved Review of Systems Review of Systems: All systems reviewed & are unremarkable except as noted in Subjective Physical Exam Physical Exam: Constitutional: Awake, alert oriented x 3. Appears comfortable. Respiratory: Bilateral vesicular breath sound. Cardiovascular: RRR, no murmur, no edema Vessels: no JVD or carotid bruit Chest: normal inspection of chest Abdomen: Slightly distended, generalized tenderness present which is mild, no guarding. Musculoskeletal: no cyanosis or clubbing, extremities motor strength 5/5 Skin: no rashes, warm and dry normal turgor Neurologic: PERRL, EOMI, accommodation nl, no face palsy, no dysarthria CN's II- XI intact bilaterally and moves all extremities Psychiatric: A+Ox3, euthymic affect Results & Data Results & Data Vital Signs (Past 12 Hours) Vital Signs Temp Pulse Pulse Resp BP Pulse Ox O2 Del Method 10/10/24 08:00 67 10/10/24 07:40 36.7 C 72 17 171/75 H 96 Room Air 10/10/24 02:29 69 20 97 10/10/24 02:18 36.4 C L 67 16 134/82 97 CPAP (3) Sepsis Sepsis acute organ dysfunction status: unspecified Sepsis type: sepsis due to unspecified organism Qualified Code(s): A41.9 - Sepsis, unspecified organism
[2024-10-10] MEDS ORDERED: LANTUS PER UNIT CHARGE SC SCH ×2 (14:00→18:00)
--- NOTE | 2024-10-10 15:18 | Pharmacy Report ---
Pharmacy Glycemic Short Note 2 - Date of Service October 10, 2024 - Glycemic Short BSG Results (Last 24 hours): 10/09/24 10/09/24 10/09/24 14:54 16:13 20:08 Glucose 203 H POC Glucose 166 H 112 H 10/09/24 10/10/24 10/10/24 23:23 06:59 07:36 Glucose 108 H 166 H POC Glucose 159 H 10/10/24 11:32 Glucose POC Glucose 144 H OUTPATIENT ANTIDIABETIC REGIMEN: * Tresiba 44 units SC AM * Novolog 24 units SC AC * Ozempic 2 mg SC every Sunday HbA1c: * 10.3% (10/07/24) ASSESSMENT: 10/10 * Jovita received 113 units of insulin yesterday (65 were basal) * Fasting BSG this AM acceptable, reported nausea and vomitting this AM, diet changed to NPO with N/V and C. Diff diarrhea. Will reduce basal insulin by approximately 50% due to NPO status. Will transition back to HS administration per CDE recommendations. * No changes to NovoLog at this time, correction factor appears adequate. * She remains on IV Flagyl and PO Vanc 10/08 * 63 yo F admitted on 10/07/24 secondary to nausea/vomiting from hyperglycemia. Pharmacy has been consulted to assist with inpatient glycemic management. Patient is a Type 2 diabetic as an outpatient. Please refer to outpatient regimen and most recent HbA1c above. * Patient well known to pharmacy glycemic service. Was recently admitted to [facility] from 10/01/24 - 10/03/24. * BSG was above 400 mg/dL upon arrival. Received two separate 10 unit IV insulin boluses yesterday afternoon. BSG decreased to 325 mg/dL. * Started on subcutaneous basal-bolus insulin last evening based on previous admission data. Received 55 units of basal and 28 units bolus. HS and midnight checks were 319 and 169 mg/dL. * Fasting BSG was 188 mg/dL this AM. Patient being treated for C. diff infection with PO vanc and IV metronidazole. Ordered a T2DM diet but not eating much per RN. Had 2 syriac ices for lunch. * Will continue with previously ordered basal dose for now. Will attempt to transition this to AM dosing to match outpatient regimen. Give a dose around noon today and then can start with AM tomorrow. * Did tighten Novolog slightly this morning. PLAN FOR INPATIENT GLYCEMIC CONTROL: * Basal insulin * Lantus 35 units SQ @1800 (was 65 units, decreased by ~50% due to NPO status) * Bolus insulin * NovoLog per scale ACHS or Q6hrs while NPO * Goal Range: Low 110 mg/dL - High 140 mg/dL * Correction Factor: 10 mg/dL/unit * Nutritional / Prandial insulin per carb ratio of 1 unit per 2 grams CHO consumed
[2024-10-10] MEDS ORDERED: ACETAMINOPHEN 1,000 MG/100 ML VIAL IV PRN (15:48)
[2024-10-10 16:39] LABS: Hematocrit (blood only) 44.3 % (37.0-47.0); Hemoglobin 15.6 g/dl (12.0-16.0); Mean Corpuscular Hemoglobin 27.6 pg (25.0-34.0); Mean Corpuscular Hgb Conc 35.2 g/dL (32.0-36.0); Mean Corpuscular Volume 78.4 fL (80.0-100.0); Mean Platelet Volume 11.1 fL (9.4-12.4); Nucleated RBC # (auto) 0.03 K/uL (0.00-0.12); Nucleated RBC % (auto) 0.1 %; Platelet Count 130 K/uL (130-400); RDW Standard Deviation 39.1 fL (36.4-46.3); Red Blood Count 5.65 M/uL (4.20-5.40)
[2024-10-10 16:43] LABS: Calcium 7.9 mg/dl (8.6-10.3); Potassium 3.7 mmol/L (3.5-5.1)
[2024-10-10 16:49] LABS: BUN Creatinine Ratio 24.4 (10-20); Creatinine Clr Calc Pharmacy 59.8 ml/min
[2024-10-10 16:56] LABS: Basophils # (auto) 0.17 K/uL (0.00-0.20); Basophils % (auto) 0.5 %; Echinocytes 2+; Eosinophils # (auto) 0.03 K/uL (0.00-0.50); Eosinophils % (auto) 0.1 %; Immature Granulocytes % (auto) 3.1 %; Lymphocytes # (auto) 3.56 K/uL (1.20-3.40); Lymphocytes % (auto) 9.9 %; Monocytes # (auto) 1.17 K/uL (0.11-0.59); Monocytes % (auto) 3.3 %; Neutrophils # (auto) 29.77 K/uL (1.40-6.50); Neutrophils % (auto) 83.1 %
[2024-10-10] MEDS: VANCOMYCIN HCL 500 MG/100 ML ENEMA PR SCH (17:49)
[2024-10-10] MEDS: MENTHOL-ZINC OXIDE 360 APPLN/120 GM TUBE EXT SCH (18:18)
--- NOTE | 2024-10-10 21:35 | Electrocardiogram Report ---
Test Reason : Blood Pressure : */* mmHG Vent. Rate : 120 BPM Atrial Rate : 120 BPM P-R Int : 136 ms QRS Dur : 104 ms QT Int : 378 ms P-R-T Axes : * -56 109 degrees QTcB Int : 534 ms Sinus tachycardia Left axis deviation Left ventricular hypertrophy with repolarization abnormality ( R in aVL , Paden product ) Prolonged QT Abnormal ECG When compared with ECG of 01-Oct-2024 16:34, Borderline criteria for Lateral infarct are no longer Present Confirmed by Mark Maurer ([id number]) on 10/10/2024 9:35:15 PM Referred By: Confirmed By: Mark Maurer
--- NOTE | 2024-10-10 21:37 | Electrocardiogram Report ---
Test Reason : Blood Pressure : */* mmHG Vent. Rate : 85 BPM Atrial Rate : 85 BPM P-R Int : 164 ms QRS Dur : 108 ms QT Int : 408 ms P-R-T Axes : 52 -45 90 degrees QTcB Int : 485 ms Sinus rhythm with Premature atrial complexes Left axis deviation Minimal voltage criteria for LVH, may be normal variant ( [place] product ) Poor R wave progression, consider anterior TN vs. lead placement vs. LVH Prolonged QT Abnormal ECG When compared with ECG of 08-Oct-2024 05:46, Premature ventricular complexes are no longer Present Premature atrial complexes are now Present Confirmed by Mark Maurer ([id number]) on 10/10/2024 9:37:27 PM Referred By: REFERRED SELF Confirmed By: Mark Maurer
--- NOTE | 2024-10-10 21:37 | Electrocardiogram Report ---
Test Reason : Blood Pressure : */* mmHG Vent. Rate : 101 BPM Atrial Rate : 101 BPM P-R Int : 170 ms QRS Dur : 104 ms QT Int : 410 ms P-R-T Axes : 75 -52 94 degrees QTcB Int : 531 ms Sinus tachycardia with frequent Premature ventricular complexes Left axis deviation Minimal voltage criteria for LVH, may be normal variant ( [place] product ) Poor R wave progression, consider anterior MN vs. lead placement vs. LVH Prolonged QT Abnormal ECG When compared with ECG of 07-Oct-2024 12:15, Premature ventricular complexes are now Present ST no longer depressed in Lateral leads Confirmed by Mark Maurer ([id number]) on 10/10/2024 9:37:01 PM Referred By: REFERRED SELF Confirmed By: Mark Maurer
[2024-10-11] MEDS: LANTUS PER UNIT CHARGE SC SCH ×2 (00:12→20:51)
[2024-10-11 06:59] LABS: Hematocrit (blood only) 41.3 % (37.0-47.0); Hemoglobin 14.5 g/dl (12.0-16.0); Mean Corpuscular Hemoglobin 27.8 pg (25.0-34.0); Mean Corpuscular Hgb Conc 35.1 g/dL (32.0-36.0); Mean Corpuscular Volume 79.3 fL (80.0-100.0); Nucleated RBC # (auto) 0.03 K/uL (0.00-0.12); Nucleated RBC % (auto) 0.1 %; Platelet Count 112 K/uL (130-400); RDW Standard Deviation 40.6 fL (36.4-46.3); Red Blood Count 5.21 M/uL (4.20-5.40)
[2024-10-11 07:26] LABS: Calcium 7.7 mg/dl (8.6-10.3); Creatinine Clr Calc Pharmacy 60.6 ml/min; Potassium 3.2 mmol/L (3.5-5.1)
[2024-10-11 07:31] LABS: Basophils # (auto) 0.08 K/uL (0.00-0.20); Basophils % (auto) 0.3 %; Eosinophils # (auto) 0.08 K/uL (0.00-0.50); Eosinophils % (auto) 0.3 %; Immature Granulocytes # (auto) 0.61 K/uL (0.01-0.20); Immature Granulocytes % (auto) 2.5 %; Lymphocytes # (auto) 2.02 K/uL (1.20-3.40); Lymphocytes % (auto) 8.4 %; Monocytes # (auto) 1.05 K/uL (0.11-0.59); Monocytes % (auto) 4.4 %; Neutrophils # (auto) 20.26 K/uL (1.40-6.50); Neutrophils % (auto) 84.1 %; Polychromasia 1+
[2024-10-11] MEDS: NSS + 20MEQ KCL 20 MEQ/1,000 ML BAG IV SCH (08:59)
[2024-10-11] MEDS: THIAMINE HCL 200 MG in SODIUM CHLORIDE 0.9% 50 ML IV SCH (09:01)
--- NOTE | 2024-10-11 09:07 | Surgery Progress Note ---
Date of Service October 11, 2024 Assessment & Plan (1) C. difficile colitis: Plan: She remains stable her leukocytosis has hopefully plateaued and is decreased today No fever or worsening abdominal pain Continue her current treatment for her C. difficile colitis No plans for any surgical intervention at this time Surgery will follow Admission and Anticipated Discharge Date Admission Date: October 07, 2024 Subjective Patient seen and examined. Continues to have diarrhea through her rectal tube. Denies any worsening abdominal pain. Afebrile. Hemodynamically stable. Review of Systems Constitutional: no fever and no chills Eyes: no blind spots and no dry eyes Ear, Nose, Mouth, Throat: no ear pain and no hearing loss Respiratory: no cough and no dyspnea Cardiovascular: no chest pain and no dyspnea on exertion Gastrointestinal: + abdominal pain and + diarrhea/loose st ools; no nausea, no vomiting, no constipation, no blood in stools and no melena Genitourinary: no dysuria and no urinary urgency Musculoskeletal: no back pain and no neck pain Integumentary: no acne, no sores and no dry skin Neurologic: no gait abnormality, no loss of sensation and no paresthesia Psychiatric: no behavioral changes and no depression Hematologic / Lymphatic: no easy bleeding and no easy bruising Physical Exam Constitutional: WD/WN, vitals as above Eyes: PERRL, conjunctivae normal, anicteric sclerae ENMT: external ear and nose normal, oropharynx normal Neck: trachea midline, no thyromegaly Respiratory: normal respiratory effort, lungs clear to auscultation Cardiovascular: RRR, no murmur, no edema Gastrointestinal (Abdomen): Inspection/Auscultation: abdomen normal to inspection; abdomen not distended Percussion/Palpation: + abdomen tender (Mild generalized) and abdomen soft; no guarding and no hernia Midline abdominal scar Musculoskeletal: no cyanosis or clubbing, extremities motor strength 5/5 Skin: no rashes, warm and dry Neurologic: PERRL, EOMI, accommodation nl, no face palsy, no dysarthria Psychiatric: A+Ox3, euthymic affect Results & Data Vital Signs (Past 12 Hours) Vital Signs Temp Pulse Pulse Resp BP Pulse Ox O2 Del Method 10/11/24 09:01 36.6 C 68 17 121/76 95 Room Air 10/11/24 03:45 36.5 C 72 18 118/69 96 Room Air 10/10/24 23:16 77 10/10/24 22:45 36.8 C 54 L 14 136/78 94 Room Air PG Care Time/CCT Total # of Minutes Spent Total Time Spent with Patient: Total time spent is greater than 50% in coordination of care (as documented) at patient's floor/unit and/or counseling patient: Coding Level of Care Code 09603 SUB INP/OBS CARE 10/18MIN Diagnoses C. difficile colitis A04.72
--- NOTE | 2024-10-11 09:26 | Hospitalist Progress Note ---
Date of Service October 11, 2024 Assessment & Plan (1) Acute hyperglycemia: (2) Insulin dependent type 2 diabetes mellitus: (3) Sepsis: (4) Acute colitis: (5) Hypertensive urgency: (6) Abnormal urinalysis: (7) Prolonged QT interval: (8) Hypomagnesemia: (9) Elevated troponin: Plan Jovita Rose is a 63y/o F with PMHx significant for aortic stenosis s/p TAVR [2017], CAD s/p drug-eluting stent to LAD, HFpEF, DM type II, hypothyroidism, HLD, liver cirrhosis 2/2 LEYVA, HTN, questionable paroxysmal atrial fibrillation, DANYELLE intolerant to CPAP, CKD stage III, benign paroxysmal positional vertigo 2/2 bilateral vestibular disorder, schizoaffective disorder, history of breast cancer s/p bilateral mastectomies + chemoradiation [2007], history of colon cancer s/p colon resection, history of GI bleed, history of C. difficile infection and splenic infarcts who presented to the ED via EMS on 10/07/24 with multiple complaints including nausea/vomiting, hyperglycemia and diarrhea. Of note, patient was recently discharged from our service on 10/03/24; she was admitted with strokelike symptoms which were thought to be as a result of hyperglycemia ISO uncontrolled, insulin-dependent DM type II. Stroke work-up was completely unremarkable. She was discharged home with [facility] services following that admission. C. difficile colitis Sepsis secondary to C. difficile Patient presented with multiple episode of diarrhea from home. History of recu rrent C. difficile infection CT abdomen pelvis on admission concerning for diffuse colitis on admission; no free air or abscess. C. difficile toxin positive Patient was admitted and was started on oral vancomycin 500 mg every 6 hours along with IV Flagyl. Repeat CT abdomen/pelvis obtained on 10/10 which is showed progressive worsening of the pancolitis. Continue on oral vancomycin every 6 hour along with IV Flagyl; Vancomycin FL every 8 hours added as per recommendation by infectious disease on 10/10/2023. Continue IV fluid with normal saline at 120 cc/h with potassium. Surgery on board for possible intervention in the future if patient's condition deteriorates. KUB daily Acute Hyperglycemia ISO Uncontrolled Insulin-Dependent DMII: Patient with known history of uncontrolled insulin-dependent DMII. Patient's outpatient insulin regimen is 44U of insulin degludec daily and 24U of insulin aspart TIDM. Started on Lantus/NovoLog. Pharmacy on board. Hyponatremia-serum sodium down trended to 126 on October 08, 2023; Plasma-Lyte was discontinued. Urine osm of 410 mosm/kg Serum sodium improved. Continue IV fluids for now given diarrhea. Abnormal Urinalysis: Patient denies any signs or symptoms of UTI. Antibiotics discontinued Prolonged QT Interval: QTc prolonged at 534ms on presenting EKG. Holding home trazodone, duloxetine and meclizine. Repeat EKG from 10/09 shows improved QTc of 485 ms Hypomagnesemia: Repleted Elevated Troponin: Initial troponin 20.7; presenting EKG with no evidence of acute ST changes. Likely demand ischemia ISO acute illness and dehydration Chronic HFpEF, Aortic Stenosis S/P TAVR, HTN: Previous ALMA from 05/2023 --> LVEF of 55 to 59%, no LV segmental wall motion abnormalities. Continue metoprolol tartrate 50mg BID as per above, ASA 81mg daily and atorvastatin 40mg daily. DVT Prophylaxis: SQ Heparin Code Status: FULL CODE PCP: Gregory Rausch MD Time spent evaluating patient, direct bedside care, chart review, placing orders, interpretation of diagnostic studies, discussion with consultants, patient, and family members, as well as other required patient management activities is 50 minutes Please note the above document was generated using voice recognition software. It may contain grammatical, syntax or spelling errors. Any formal questions or concerns about the content, text or information contained within the body of this dictation should be directly addressed to the provider for clarification Admission and Anticipated Discharge Date Admission Date: October 07, 2024 Subjective Patient seen and examined at bedside. She continues to have diarrhea through the rectal tube; overall she feels better. She was afebrile overnight Abdominal pain/discomfort present; not increased compared to yesterday. Review of Systems Review of Systems: All systems reviewed & are unremarkable except as noted in Subjective Physical Exam Physical Exam: Constitutional: Awake, alert oriented x 3. Appears comfortable. Respiratory: Bilateral vesicular breath sound. Cardiovascular: RRR, no murmur, no edema Vessels: no JVD or carotid bruit Chest: normal inspection of chest Abdomen: Slightly distended, generalized tenderness present which is mild, no guarding. Musculoskeletal: no cyanosis or clubbing, extremities motor strength 5/5 Skin: no rashes, warm and dry normal turgor Neurologic: PERRL, EOMI, accommodation nl, no face palsy, no dysarthria CN's II- XI intact bilaterally and moves all extremities Psychiatric: A+Ox3, euthymic affect Results & Data Results & Data Vital Signs (Past 12 Hours) Vital Signs Temp Pulse Pulse Resp BP Pulse Ox O2 Del Method 10/11/24 09:01 36.6 C 68 17 121/76 95 Room Air 10/11/24 03:45 36.5 C 72 18 118/69 96 Room Air 10/10/24 23:16 77 10/10/24 22:45 36.8 C 54 L 14 136/78 94 Room Air (3) Sepsis Sepsis acute organ dysfunction status: unspecified Sepsis type: sepsis due to unspecified organism Qualified Code(s): A41.9 - Sepsis, unspecified organism
--- NOTE | 2024-10-11 11:33 | Gastroenterology Progress Note ---
Date of Service October 11, 2024 Assessment & Plan (1) C. difficile colitis: Plan: Fulminant C. difficile colitis with elevated white count lactic acidosis diffuse colitis on CT scan. Patient shows signs of improvement today with decrease in white count decreased abdominal pain. Her creatinine and lactate are not increasing suggesting response to therapy. Continue current oral vancomycin and IV Flagyl. Consider outpatient Zinplava or other suppressive therapies for recurrent C. difficile based on multiple episodes of C. difficile. Unfortunate her need for antibiotics for UTIs complicates her care. (2) DM II (diabetes mellitus, type II), controlled: (3) Diastolic congestive heart failure: Admission and Anticipated Discharge Date Admission Date: October 07, 2024 Subjective Patient sleeping arouses to voice. Remembers me from previous visits. States she is feeling somewhat improved. Biochemistry bears this out. Her white count is peaked and on the way down. Lactate is normal and creatinine is normal. These are all quite encouraging signs. Patient can have oral liquids at present. Full fluids. Management currently is a 14-day of vancomycin. Probably would benefit from a taper post specially with the need for antibiotics for UTI. I would at least cover for the complete course of antibiotics. And then a 2-week taper. Patient likely would benefit from Zinplava, Rebyota therapy. Could arrange at discharge. Review of Systems Review of Systems: Currently denies increased shortness of breath. No chest pain GI decreased abdominal pain Review of systems otherwise in the Physical Exam Physical Exam: Sleeping arouses to voice. Heart sounds normal. Abdomen obese protuberant but benign. He does have mild diffuse tenderness though improved over previous exam. Bowel sounds are present. Results & Data Results & Data Vital Signs (Past 12 Hours) Vital Signs Temp Pulse Resp BP Pulse Ox O2 Del Method 10/11/24 11:06 36.6 C 68 16 116/73 95 Room Air 10/11/24 09:01 36.6 C 68 17 121/76 95 Room Air 10/11/24 03:45 36.5 C 72 18 118/69 96 Room Air Laboratory Results Normal lactate normal BUN. Decreasing white count PG Care Time/CCT Total # of Minutes Spent Total Time Spent with Patient: Total time spent is greater than 50% in coordination of care (as documented) at patient's floor/unit and/or counseling patient: Coding Level of Care Code 63974 SUB INP/OBS CARE 10/18MIN Diagnoses C. difficile colitis A04.72 DM II (diabetes mellitus, type II), controlled E11.9 Diastolic congestive heart failure I50.30
--- NOTE | 2024-10-11 12:06 | XRay Report ---
EXAM: Radiograph of the Abdomen 1 View INDICATION: Follow-up colitis TECHNIQUE: Frontal supine view of the abdomen/pelvis. COMPARISON: CT abdomen 10/07/2024 FINDINGS: Limitations: None. Gastrointestinal tract: Comparing the plain radiographs to the CT, there is probable stable colitis. Slightly more colonic air noted. No distention. Organs: Visualized organ shadows appear grossly normal. Bones/joints: No fracture, erosion or dislocation. Soft tissues: No abnormality noted. No radiopaque foreign body noted. IMPRESSION: Allowing for limitations of comparing different modalities, colitis is grossly stable. There is slightly more air in the colon without distention. ACT 112: Negative or not required by law. Electronically signed by Mariana Nowak 10-11-2024 12:05 PM
[2024-10-11] MEDS: INSULIN ASPART PER UNIT CHARGE SC SCH (20:50)
[2024-10-12 07:56] LABS: Hematocrit (blood only) 39.7 % (37.0-47.0); Hemoglobin 13.5 g/dl (12.0-16.0); Mean Corpuscular Hemoglobin 27.3 pg (25.0-34.0); Mean Corpuscular Volume 80.2 fL (80.0-100.0); Mean Platelet Volume 11.5 fL (9.4-12.4); Nucleated RBC # (auto) 0.03 K/uL (0.00-0.12); Nucleated RBC % (auto) 0.1 %; Platelet Count 92 K/uL (130-400); RDW Coefficient of Variation 14.6 % (11.5-14.5); RDW Standard Deviation 42.1 fL (36.4-46.3); Red Blood Count 4.95 M/uL (4.20-5.40); White Blood Count 25.74 K/ul (4.8-10.8)
[2024-10-12 08:12] LABS: BUN Creatinine Ratio 19.7 (10-20); Calcium 7.6 mg/dl (8.6-10.3); Creatinine Clr Calc Pharmacy 67.5 ml/min; Potassium 3.7 mmol/L (3.5-5.1)
[2024-10-12 08:44] LABS: Basophils # (auto) 0.11 K/uL (0.00-0.20); Basophils % (auto) 0.4 %; Eosinophils # (auto) 0.14 K/uL (0.00-0.50); Eosinophils % (auto) 0.5 %; Immature Granulocytes # (auto) 1.33 K/uL (0.01-0.20); Immature Granulocytes % (auto) 5.2 %; Lymphocytes # (auto) 2.74 K/uL (1.20-3.40); Lymphocytes % (auto) 10.6 %; Monocytes # (auto) 1.18 K/uL (0.11-0.59); Monocytes % (auto) 4.6 %; Neutrophils # (auto) 20.24 K/uL (1.40-6.50); Neutrophils % (auto) 78.7 %; Polychromasia 1+; Tear Drop Cells 1+
[2024-10-12] MEDS: LANTUS PER UNIT CHARGE SC SCH ×2 (08:45→20:02)
--- NOTE | 2024-10-12 09:05 | XRay Report ---
EXAM: XR KUB/Abdomen 1 view CLINICAL HISTORY: Follow up on colitis portable TECHNIQUE: X-ray image of the abdomen obtained in 1 frontal projection. COMPARISON: Prior X-ray dated 10/11/2024 for comparison. FINDINGS: Gas Pattern: Few gas filled bowel loops in the lower abdomen. No evidence of bowel obstruction or distention. Soft Tissues: Soft tissues of the abdomen appear normal without evidence of masses or calcifications. Liver, spleen, and kidneys are of normal size and position. Spondylotic changes in thoracolumbar spine. IMPRESSION: 1. Few gas filled bowel loops in the lower abdomen, new finding. 2. No evidence of bowel obstruction or distention. Electronically signed by Beckie Rome 10-12-2024 09:05 AM
--- NOTE | 2024-10-12 09:19 | Surgery Progress Note ---
Date of Service October 12, 2024 Assessment & Plan (1) C. difficile colitis: Plan: Her abdominal exam continues to improve and she has no signs of overt sepsis from her C. difficile colitis Continue to treat her medically, no indications for total colectomy at this point We will continue to follow along Admission and Anticipated Discharge Date Admission Date: October 07, 2024 Subjective Patient seen and examined. Afebrile. States her abdominal pain is slightly improved. Still having bowel movements via her rectal tube. Denies any nausea or vomiting. Tolerating clear liquids. Review of Systems Constitutional: no fever and no chills Eyes: no blind spots and no dry eyes Ear, Nose, Mouth, Throat: no ear pain and no hearing loss Respiratory: no cough and no dyspnea Cardiovascular: no chest pain and no dyspnea on exertion Gastrointestinal: + abdominal pain and + diarrhea/loose st ools; no nausea, no vomiting, no constipation, no blood in stools and no melena Genitourinary: no dysuria and no urinary urgency Musculoskeletal: no back pain and no neck pain Integumentary: no acne, no sores and no dry skin Neurologic: no gait abnormality, no loss of sensation and no paresthesia Psychiatric: no behavioral changes and no depression Hematologic / Lymphatic: no easy bleeding and no easy bruising Physical Exam Constitutional: WD/WN, vitals as above Eyes: PERRL, conjunctivae normal, anicteric sclerae ENMT: external ear and nose normal, oropharynx normal Neck: trachea midline, no thyromegaly Respiratory: normal respiratory effort, lungs clear to auscultation Cardiovascular: RRR, no murmur, no edema Gastrointestinal (Abdomen): Inspection/Auscultation: abdomen normal to inspection; abdomen not distended Percussion/Palpation: + abdomen tender (Mild generalized, improved) and abdomen soft; no guarding and no hernia Midline abdominal scar Musculoskeletal: no cyanosis or clubbing, extremities motor strength 5/5 Skin: no rashes, warm and dry Neurologic: PERRL, EOMI, accommodation nl, no face palsy, no dysarthria Psychiatric: A+Ox3, euthymic affect Results & Data Vital Signs (Past 12 Hours) Vital Signs Temp Pulse Pulse Resp BP Pulse Ox O2 Del Method 10/12/24 08:25 36.6 C 94 H 17 124/71 97 Room Air 10/12/24 07:26 Room Air 10/12/24 03:17 36.6 C 72 16 131/76 97 Room Air 10/11/24 22:49 100 H PG Care Time/CCT Total # of Minutes Spent Total Time Spent with Patient: Total time spent is greater than 50% in coordination of care (as documented) at patient's floor/unit and/or counseling patient: Coding Level of Care Code 36641 SUB INP/OBS CARE 10/18MIN Diagnoses C. difficile colitis A04.72
--- NOTE | 2024-10-12 10:24 | Gastroenterology Progress Note ---
Date of Service October 12, 2024 Assessment & Plan (1) C. difficile colitis: Plan: About the same from a GI perspective as yesterday. White count count is stayed the same. Little less alert today than previously. Recheck white count tomorrow. Continue current management. Potential candidate for [facility] as outpatient Admission and Anticipated Discharge Date Admission Date: October 07, 2024 Subjective Fulminant C. difficile. White count about the same. She is a little less alert today than yesterday. Abdomen remains softer and less pain than original presentation. She is afebrile with stable vitals. Continue same oral Vanco IV Flagyl. Recheck labs in AM. Review of Systems Review of Systems: Somewhat sleepy she does answer questions mostly monosyllables GI states less abdominal pain, denies chest pain or shortness of breath Physical Exam Physical Exam: Arouses to voice. Abdomen protuberant but benign bowel sounds are present. No guarding rebound or rigidity Results & Data Results & Data Vital Signs (Past 12 Hours) Vital Signs Temp Pulse Pulse Resp BP Pulse Ox O2 Del Method 10/12/24 10:04 71 10/12/24 08:25 36.6 C 94 H 17 124/71 97 Room Air 10/12/24 07:26 Room Air 10/12/24 03:17 36.6 C 72 16 131/76 97 Room Air 10/11/24 22:49 100 H Laboratory Results Leukocytosis PG Care Time/CCT Total # of Minutes Spent Total Time Spent with Patient: Total time spent is greater than 50% in coordination of care (as documented) at patient's floor/unit and/or counseling patient: Coding Level of Care Code 49271 SUB INP/OBS CARE 10/18MIN Diagnoses C. difficile colitis A04.72
--- NOTE | 2024-10-12 11:55 | Hospitalist Progress Note ---
Date of Service October 12, 2024 Assessment & Plan (1) Acute hyperglycemia: (2) Insulin dependent type 2 diabetes mellitus: (3) Sepsis: (4) Acute colitis: (5) Hypertensive urgency: (6) Abnormal urinalysis: (7) Prolonged QT interval: (8) Hypomagnesemia: (9) Elevated troponin: Plan Jovita Rose is a 63y/o F with PMHx significant for aortic stenosis s/p TAVR [2017], CAD s/p drug-eluting stent to LAD, HFpEF, DM type II, hypothyroidism, HLD, liver cirrhosis 2/2 LEYVA, HTN, questionable paroxysmal atrial fibrillation, DANYELLE intolerant to CPAP, CKD stage III, benign paroxysmal positional vertigo 2/2 bilateral vestibular disorder, schizoaffective disorder, history of breast cancer s/p bilateral mastectomies + chemoradiation [2007], history of colon cancer s/p colon resection, history of GI bleed, history of C. difficile infection and splenic infarcts who presented to the ED via EMS on 10/07/24 with multiple complaints including nausea/vomiting, hyperglycemia and diarrhea. Of note, patient was recently discharged from our service on 10/03/24; she was admitted with strokelike symptoms which were thought to be as a result of hyperglycemia ISO uncontrolled, insulin-dependent DM type II. Stroke work-up was completely unremarkable. She was discharged home with [facility] services following that admission. C. difficile colitis Sepsis secondary to C. difficile Patient presented with multiple episode of diarrhea from home. History of recu rrent C. difficile infection CT abdomen pelvis on admission concerning for diffuse colitis on admission; no free air or abscess. C. difficile toxin positive Patient was admitted and was started on oral vancomycin 500 mg every 6 hours along with IV Flagyl. Repeat CT abdomen/pelvis obtained on 10/10 which is showed progressive worsening of the pancolitis. Continue on oral vancomycin every 6 hour along with IV Flagyl; Vancomycin VT every 8 hours added as per recommendation by infectious disease on 10/10/2023. Fluids changed to 1/2 NS with KCl at 80cc/hr Surgery on board for possible intervention in the future if patient's condition deteriorates. KUB daily Acute Hyperglycemia ISO Uncontrolled Insulin-Dependent DMII: Patient with known history of uncontrolled insulin-dependent DMII. Patient's outpatient insulin regimen is 44U of insulin degludec daily and 24U of insulin aspart TIDM. Started on Lantus/NovoLog. Pharmacy on board. Hyponatremia-serum sodium down trended to 126 on October 08, 2023; Plasma-Lyte was discontinued. Urine osm of 410 mosm/kg Serum sodium improved. Continue IV fluids for now given diarrhea. Abnormal Urinalysis: Patient denies any signs or symptoms of UTI. Antibiotics discontinued Prolonged QT Interval: QTc prolonged at 534ms on presenting EKG. Holding home trazodone, duloxetine and meclizine. Repeat EKG from 10/09 shows improved QTc of 485 ms Hypomagnesemia: Repleted Elevated Troponin: Initial troponin 20.7; presenting EKG with no evidence of acute ST changes. Likely demand ischemia ISO acute illness and dehydration Chronic HFpEF, Aortic Stenosis S/P TAVR, HTN: Previous ALMA from 05/2023 --> LVEF of 55 to 59%, no LV segmental wall motion abnormalities. Continue metoprolol tartrate 50mg BID as per above, ASA 81mg daily and atorvastatin 40mg daily. DVT Prophylaxis: SQ Heparin Code Status: FULL CODE PCP: Gregory Rausch MD Time spent evaluating patient, direct bedside care, chart review, placing orders, interpretation of diagnostic studies, discussion with consultants, patient, and family members, as well as other required patient management ac tivities is 50 minutes Please note the above document was generated using voice recognition software. It may contain grammatical, syntax or spelling errors. Any formal questions or concerns about the content, text or information contained within the body of this dictation should be directly addressed to the provider for clarification Admission and Anticipated Discharge Date Admission Date: October 07, 2024 Subjective Patient seen and examined at bedside. She is sleepy but awake able to voice. Reports that her abdominal discomfort/pain has slightly improved compared to yesterday. Rectal tube still shows significant stool output. Afebrile overnight; blood pressure stable Review of Systems Review of Systems: All systems reviewed & are unremarkable except as noted in Subjective Physical Exam Physical Exam: Constitutional: Awake, alert oriented x 3. Appears comfortable. Respiratory: Bilateral vesicular breath sound. Cardiovascular: RRR, no murmur, no edema Vessels: no JVD or carotid bruit Chest: normal inspection of chest Abdomen: Slightly distended, generalized tenderness present which is mild, Slightly improved compared to yesterday. Musculoskeletal: no cyanosis or clubbing, extremities motor strength 5/5 Skin: no rashes, warm and dry normal turgor Neurologic: PERRL, EOMI, accommodation nl, no face palsy, no dysarthria CN's II- XI intact bilaterally and moves all extremities Psychiatric: A+Ox3, euthymic affect Results & Data Results & Data Vital Signs (Past 12 Hours) Vital Signs Temp Pulse Pulse Resp BP Pulse Ox O2 Del Method 10/12/24 10:54 36.8 C 76 18 132/80 95 Room Air 10/12/24 10:04 71 10/12/24 08:25 36.6 C 94 H 17 124/71 97 Room Air 10/12/24 07:26 Room Air 10/12/24 03:17 36.6 C 72 16 131/76 97 Room Air (3) Sepsis Sepsis acute organ dysfunction status: unspecified Sepsis type: sepsis due to unspecified organism Qualified Code(s): A41.9 - Sepsis, unspecified organism
[2024-10-12] MEDS: SODIUM CHLOR 0.45% + 20MEQ KCL 20 MEQ/1,000 ML BAG IV SCH (12:38)
[2024-10-12 21:19] LABS: BUN Creatinine Ratio 14.1 (10-20); Calcium 7.2 mg/dl (8.6-10.3); Creatinine Clr Calc Pharmacy 60.4 ml/min; Potassium 3.6 mmol/L (3.5-5.1)
--- NOTE | 2024-10-13 09:03 | XRay Report ---
KUB CLINICAL HISTORY: Follow up on colitis COMPARISON STUDY: CT of the abdomen and pelvis October 10, 2004. KUB October 12, 2024. FINDINGS: Mild gaseous distention of small and large bowel has slightly increased since KUB of 2024. Ahaustral appearance of portions of the colon represent underlying colitis, as shown on p rior CT. Sensitivity for detection of free air is diminished on supine exam but none is identified. N o urinary calculi are identified. IMPRESSION: 1. Mild increase in gaseous distention of the colon with radiographic evidence for colitis, as shown on CT. 2. Several prominent gas-filled loops of small bowel without convincing evidence for a bowel obstruct ion. The findings may represent an associated ileus. ACT 112: Negative or not required by law. Electronically signed by: Fabian Flores M.D. 10/13/2024 9:00 AM
--- NOTE | 2024-10-13 09:11 | Pharmacy Report ---
Pharmacy Glycemic Short Note 2 - Date of Service October 13, 2024 - Glycemic Short BSG Results (Last 24 hours): 10/12/24 10/12/24 10/12/24 11:19 15:48 19:56 Glucose POC Glucose 223 H 143 H 272 H 10/12/24 10/13/24 10/13/24 20:42 07:39 07:41 Glucose 161 H POC Glucose 68 L* 74 OUTPATIENT ANTIDIABETIC REGIMEN: * Tresiba 44 units SC AM * Novolog 24 units SC AC * Ozempic 2 mg SC every Sunday HbA1c: * 10.3% (10/07/24) ASSESSMENT: 10/13/24: * Blood sugars have been labile over past several days with variable basal insulin doses * Hyperglycemia noted yesterday, but episode of hypoglycemia this morning (blood sugar of 68 mg/dL) * Despite hyperglycemia yesterday, will slightly loosen Novolog and hold off on basal for now due to hypoglycemia this AM * Remains on clear liquid/T2DM diet * Ongoing treatment for C. difficile colitis with vancomycin PO + enema and metronidazole IV 10/10 * Jovita received 113 units of insulin yesterday (65 were basal) * Fasting BSG this AM acceptable, reported nausea and vomiting this AM, diet changed to NPO with N/V and C. Diff diarrhea. Will reduce basal insulin by approximately 50% due to NPO status. Will transition back to HS administration per CDE recommendations. * No changes to NovoLog at this time, correction factor appears adequate. * She remains on IV Flagyl and PO Vanc 10/08 * 63 yo F admitted on 10/07/24 secondary to nausea/vomiting from hyperglycemia. Pharmacy has been consulted to assist with inpatient glycemic management. Patient is a Type 2 diabetic as an outpatient. Please refer to outpatient regimen and most recent HbA1c above. * Patient well known to pharmacy glycemic service. Was recently admitted to [facility] from 10/01/24 - 10/03/24. * BSG was above 400 mg/dL upon arrival. Received two separate 10 unit IV insulin boluses yesterday afternoon. BSG decreased to 325 mg/dL. * Started on subcutaneous basal-bolus insulin last evening based on previous admission data. Received 55 units of basal and 28 units bolus. HS and midnight checks were 319 and 169 mg/dL. * Fasting BSG was 188 mg/dL this AM. Patient being treated for C. diff infection with PO vanc and IV metronidazole. Ordered a T2DM diet but not eating much per RN. Had 2 [employer] ices for lunch. * Will continue with previously ordered basal dose for now. Will attempt to transition this to AM dosing to match outpatient regimen. Give a dose around noon today and then can start with AM tomorrow. * Did tighten Novolog slightly this morning. PLAN FOR INPATIENT GLYCEMIC CONTROL: * Basal insulin - decrease * Lantus 20-25-30 units SC HS (see EHR for details) * Bolus insulin - loosen * NovoLog per scale ACHS or Q6hrs while NPO * Goal Range: Low 110 mg/dL - High 140 mg/dL * Correction Factor: 12 mg/dL/unit * Nutritional / Prandial insulin per carb ratio of 1 unit per 3 grams CHO consumed
--- NOTE | 2024-10-13 10:22 | Gastroenterology Progress Note ---
Date of Service October 13, 2024 Assessment & Plan (1) C. difficile colitis: Plan: 63 year old female w/ history of aortic stenosis s/p TAVR in 2017, CAD s/p drug- eluting stent to LAD, heart failure with preserved ejection fraction, T2DM, hypothyroidism, hyperlipidemia, LEYVA cirrhosis, HTN, paroxysmal atrial fibrillation, DANYELLE, CKD stage III, benign paroxysmal positional vertigo due to bilateral vestibular disorder, history of schizoaffective disorder, breast cancer s/p bilateral mastectomies + chemoradiation, colon cancer s/p colon resection admitted w/ nausea/vomiting and diarrhea. CT showing diffuse colitis, stool testing revealing C.diff toxin and gene positive, negative PCR. - Await AM labs - Will review KUB w/ attending - Continue oral Vancomycin - Continue rectal Vancomycin - Continue IV Flagyl - Appreciate surgical input I spent a total of 40 minutes on the date of service in review of patient's record, and previously obtained information in person and appropriate medical visit, discussion and education of plan, with patient and/or caregiver, placing orders for tests/referral/procedures as medically necessary and documentation of pertinent clinical information in patient's medical records for their visit today. Admission and Anticipated Discharge Date Admission Date: October 07, 2024 Supervising Physician Co-Signing Physician Notes Reviewed with nurse practitioner. Patient examined at the bedside. More alert again today. States her belly feels better. Clinically exam shows a protuberant but improving abdomen less distention. Positive bowel sounds. Less pain or discomfort. White count down to 22,000. X-ray shows ileus. Continue same. Suspect slow recovery. Subjective Pt was seen and evaluated, chart reviewed. Notes she is feeling about the same as yesterday. Reports generalized bloating/discomfort Continues w/ brown loose output via rectal tube. No black or bloody stools. WBC this AM is pending but was downtrending Remains on PO Vanco, Rectal Vanco and IV Flagyl KUB 2023: Mild increase in gaseous distention of the colon with radiographic evidence for colitis, as shown on CT.Several prominent gas-filled loops of small bowel without convincing evidence for a bowel obstruction. The findings may repr esent an associated ileus. Colonoscopy 2023: Patent end-to-end colo-colonic anastomosis, characterized by healthy appearing mucosa. - Non-bleeding internal hemorrhoids. - No specimens collected. EGD 2022: - Large area of greater curvature, gastric body Ischemia with signs of gastric wall necrosis, likely the source of her pneumoperitoneum/ perforation, however this seems to be contained based on her CT scan images with no free fluid. Review of Systems Review of Systems: All other findings negative except as noted in HPI. Physical Exam Constitutional: well developed, well nourished and + ill appearing (chronically ill appearing, in bed but no acute distress noted); no acute distress nursing staff at bedside Respiratory: normal respiratory effort Cardiovascular: Rate/Rhythm: regular rate Gastrointestinal (Abdomen): Inspection/Auscultation: + abdomen distended and normal bowel sounds Percussion/Palpation: + abdomen tender (generalized tenderness) and abdomen soft; no guarding and abdomen not rigid Skin: no rashes, warm and dry Results & Data Results & Data Vital Signs (Past 12 Hours) Vital Signs Temp Pulse Pulse Resp BP Pulse Ox O2 Del Method 10/13/24 07:33 66 10/13/24 05:10 92 H 18 143/83 H 98 Room Air 10/12/24 23:36 97.9 F 79 18 129/67 95 Room Air 10/12/24 22:29 72 Laboratory Results 10/13/24 10/13/24 10/13/24 Range/Units 07:41 07:39 07:00 WBC RBC Hgb Hct MCV MCH MCHC Plt Count Sodium (136-145) mmol/L Potassium (3.5-5.1) mmol/L Chloride (98-107) mmol/L Carbon Dioxide (21-32) mmol/L Anion Gap (3-11) BUN (6-23) mg/dl Creatinine (0.6-1.2) mg/dl Est Cr Clr Drug Dosing ml/min eGFR BUN/Creatinine Ratio (10-20) Glucose (70-99(Fasting)) mg/dl POC Glucose 74 68 L* (70-99) mg/dl Fasting Glucose Lactate Pending Calcium (8.6-10.3) mg/dl 10/13/24 10/12/24 10/12/24 Range/Units 04:44 20:42 19:56 WBC Pending RBC Pending Hgb Pending Hct Pending MCV Pending MCH Pending MCHC Pending Plt Count Pending Sodium Pending 133 L (136-145) mmol/L Potassium Pending 3.6 (3.5-5.1) mmol/L Chloride Pending 110 H (98-107) mmol/L Carbon Dioxide Pending 18 L (21-32) mmol/L Anion Gap Pending 5 (3-11) BUN Pending 12 (6-23) mg/dl Creatinine Pending 0.85 (0.6-1.2) mg/dl Est Cr Clr Drug Dosing Pending 60.4 ml/min eGFR Pending 75.98 BUN/Creatinine Ratio 14.1 (10-20) Glucose 161 H (70-99(Fasting)) mg/dl POC Glucose 272 H (70-99) mg/dl Fasting Glucose Pending Lactate Calcium Pending 7.2 L (8.6-10.3) mg/dl 10/12/24 10/12/24 Range/Units 15:48 11:19 WBC RBC Hgb Hct MCV MCH MCHC Plt Count Sodium (136-145) mmol/L Potassium (3.5-5.1) mmol/L Chloride (98-107) mmol/L Carbon Dioxide (21-32) mmol/L Anion Gap (3-11) BUN (6-23) mg/dl Creatinine (0.6-1.2) mg/dl Est Cr Clr Drug Dosing ml/min eGFR BUN/Creatinine Ratio (10-20) Glucose (70-99(Fasting)) mg/dl POC Glucose 143 H 223 H (70-99) mg/dl Fasting Glucose Lactate Calcium (8.6-10.3) mg/dl PG Care Time/CCT Total # of Minutes Spent Total Time Spent with Patient: Total time spent is greater than 50% in coordination of care (as documented) at patient's floor/unit and/or counseling patient: Coding Level of Care Code 25839 SUB INP/OBS CARE 2/35MIN Diagnoses C. difficile colitis A04.72
--- NOTE | 2024-10-13 10:29 | Surgery Progress Note ---
Date of Service October 13, 2024 Assessment & Plan (1) C. difficile colitis: Plan: Her abdominal exam continues to improve Her white count is pending today, will follow-up on this we will try full liquids No plans for any surgical intervention Admission and Anticipated Discharge Date Admission Date: October 07, 2024 Subjective Patient seen and examined. States she has less abdominal pain. Afebrile. Diarrhea is slowing. Review of Systems Constitutional: no fever and no chills Eyes: no blind spots and no dry eyes Ear, Nose, Mouth, Throat: no ear pain and no hearing loss Respiratory: no cough and no dyspnea Cardiovascular: no chest pain and no dyspnea on exertion Gastrointestinal: + abdominal pain and + diarrhea/loose st ools; no nausea, no vomiting, no constipation, no blood in stools and no melena Genitourinary: no dysuria and no urinary urgency Musculoskeletal: no back pain and no neck pain Integumentary: no acne, no sores and no dry skin Neurologic: no gait abnormality, no loss of sensation and no paresthesia Psychiatric: no behavioral changes and no depression Hematologic / Lymphatic: no easy bleeding and no easy bruising Physical Exam Constitutional: WD/WN, vitals as above Eyes: PERRL, conjunctivae normal, anicteric sclerae ENMT: external ear and nose normal, oropharynx normal Neck: trachea midline, no thyromegaly Respiratory: normal respiratory effort, lungs clear to auscultation Cardiovascular: RRR, no murmur, no edema Gastrointestinal (Abdomen): Inspection/Auscultation: abdomen normal to inspection; abdomen not distended Percussion/Palpation: + abdomen tender (Mild generalized, improved) and abdomen soft; no guarding and no hernia Midline abdominal scar Musculoskeletal: no cyanosis or clubbing, extremities motor strength 5/5 Skin: no rashes, warm and dry Neurologic: PERRL, EOMI, accommodation nl, no face palsy, no dysarthria Psychiatric: A+Ox3, euthymic affect Results & Data Vital Signs (Past 12 Hours) Vital Signs Temp Pulse Pulse Resp BP Pulse Ox O2 Del Method 10/13/24 07:33 66 10/13/24 05:10 92 H 18 143/83 H 98 Room Air 10/12/24 23:36 36.6 C 79 18 129/67 95 Room Air 10/12/24 22:29 72 PG Care Time/CCT Total # of Minutes Spent Total Time Spent with Patient: Total time spent is greater than 50% in coordination of care (as documented) at patient's floor/unit and/or counseling patient: Coding Level of Care Code 15986 SUB INP/OBS CARE 10/18MIN Diagnoses C. difficile colitis A04.72
[2024-10-13 10:35] LABS: Hemoglobin 13.5 g/dl (12.0-16.0); Mean Corpuscular Hemoglobin 27.4 pg (25.0-34.0); Mean Corpuscular Hgb Conc 34.6 g/dL (32.0-36.0); Mean Corpuscular Volume 79.3 fL (80.0-100.0); Mean Platelet Volume 10.4 fL (9.4-12.4); Nucleated RBC # (auto) 0.03 K/uL (0.00-0.12); Nucleated RBC % (auto) 0.1 %; Platelet Count 96 K/uL (130-400); RDW Coefficient of Variation 14.6 % (11.5-14.5); Red Blood Count 4.92 M/uL (4.20-5.40)
[2024-10-13 10:54] LABS: Calcium 7.4 mg/dl (8.6-10.3); Creatinine Clr Calc Pharmacy 65.6 ml/min; Potassium 3.6 mmol/L (3.5-5.1)
--- NOTE | 2024-10-13 13:44 | Hospitalist Progress Note ---
Date of Service October 13, 2024 Assessment & Plan (1) Acute hyperglycemia: (2) Insulin dependent type 2 diabetes mellitus: (3) Sepsis: (4) Acute colitis: (5) Hypertensive urgency: (6) Abnormal urinalysis: (7) Prolonged QT interval: (8) Hypomagnesemia: (9) Elevated troponin: Plan Jovita Rose is a 63y/o F with PMHx significant for aortic stenosis s/p TAVR [2017], CAD s/p drug-eluting stent to LAD, HFpEF, DM type II, hypothyroidism, HLD, liver cirrhosis 2/2 LEYVA, HTN, questionable paroxysmal atrial fibrillation, DANYELLE intolerant to CPAP, CKD stage III, benign paroxysmal positional vertigo 2/2 bilateral vestibular disorder, schizoaffective disorder, history of breast cancer s/p bilateral mastectomies + chemoradiation [2007], history of colon cancer s/p colon resection, history of GI bleed, history of C. difficile infection and splenic infarcts who presented to the ED via EMS on 10/07/24 with multiple complaints including nausea/vomiting, hyperglycemia and diarrhea. Of note, patient was recently discharged from our service on 10/03/24; she was admitted with strokelike symptoms which were thought to be as a result of hyperglycemia ISO uncontrolled, insulin-dependent DM type II. Stroke work-up was completely unremarkable. She was discharged home with [facility] services following that admission. C. difficile colitis Sepsis secondary to C. difficile Patient presented with multiple episode of diarrhea from home. History of recu rrent C. difficile infection CT abdomen pelvis on admission concerning for diffuse colitis on admission; no free air or abscess. C. difficile toxin positive Patient was admitted and was started on oral vancomycin 500 mg every 6 hours along with IV Flagyl. Repeat CT abdomen/pelvis obtained on 10/10 which is showed progressive worsening of the pancolitis. Continue on oral vancomycin every 6 hour along with IV Flagyl; Vancomycin VA every 8 hours added as per recommendation by infectious disease on 10/10/2023. Fluids changed to 1/2 NS with KCl at 80cc/hr Surgery on board for possible intervention in the future if patient's condition deteriorates. KUB daily PT/OT. Uncontrolled Insulin-Dependent DMII: Patient with known history of uncontrolled insulin-dependent DMII. Patient's outpatient insulin regimen is 44U of insulin degludec daily and 24U of insulin aspart TIDM. Started on Lantus/NovoLog. Pharmacy on board. Hyponatremia-serum sodium down trended to 126 on October 08, 2023; Plasma-Lyte was discontinued. Urine osm of 410 mosm/kg Serum sodium improved. Continue IV fluids for now given diarrhea. Abnormal Urinalysis: Patient denies any signs or symptoms of UTI. Antibiotics discontinued Prolonged QT Interval: QTc prolonged at 534ms on presenting EKG. Holding home trazodone, duloxetine and meclizine. Repeat EKG from 10/09 shows improved QTc of 485 ms Hypomagnesemia: Repleted Elevated Troponin: Initial troponin 20.7; presenting EKG with no evidence of acute ST changes. Likely demand ischemia ISO acute illness and dehydration Chronic HFpEF, Aortic Stenosis S/P TAVR, HTN: Previous ALMA from 05/2023 --> LVEF of 55 to 59%, no LV segmental wall motion abnormalities. Continue metoprolol tartrate 50mg BID as per above, ASA 81mg daily and atorvastatin 40mg daily. Plavix currently on hold for possible need for surgery. DVT Prophylaxis: SQ Heparin Code Status: FULL CODE PCP: Gregory Rausch MD Updated patient's daughter at bedside. Answer questions/queries. She is in agreement with the plan Time spent evaluating patient, direct bedside care, chart review, placing orders, interpretation of diagnostic studies, discussion with consultants, patient, and family members, as well as other required patient management activities is 50 minutes Please note the above document was generated using voice recognition software. It may contain grammatical, syntax or spelling errors. Any formal questions or concerns about the content, text or information contained within the body of this dictation should be directly addressed to the provider for clarification Admission and Anticipated Discharge Date Admission Date: October 07, 2024 Subjective Patient seen and examined at bedside. She reports that she is feeling comfortable; abdominal pain has slightly improved She continues to have diarrhea with stool output of 900 cc throughout the day yesterday. Review of Systems Review of Systems: All systems reviewed & are unremarkable except as noted in Subjective Physical Exam Physical Exam: Constitutional: Awake, alert oriented x 3. Appears comfortable. Respiratory: Bilateral vesicular breath sound. Cardiovascular: RRR, no murmur, no edema Vessels: no JVD or carotid bruit Chest: normal inspection of chest Abdomen: Slightly distended, generalized tenderness present which is mild, overall improved compared to previous days Musculoskeletal: no cyanosis or clubbing, extremities motor strength 5/5 Skin: no rashes, warm and dry normal turgor Neurologic: PERRL, EOMI, accommodation nl, no face palsy, no dysarthria CN's II- XI intact bilaterally and moves all extremities Psychiatric: A+Ox3, euthymic affect Results & Data Results & Data Vital Signs (Past 12 Hours) Vital Signs Temp Pulse Pulse Resp BP BP Pulse Ox 10/13/24 10:50 37.1 C 75 18 150/81 H 97 10/13/24 07:33 66 10/13/24 05:10 92 H 18 143/83 H 98 O2 Del Method 10/13/24 10:50 Room Air 10/13/24 07:33 10/13/24 05:10 Room Air (3) Sepsis Sepsis acute organ dysfunction status: unspecified Sepsis type: sepsis due to unspecified organism Qualified Code(s): A41.9 - Sepsis, unspecified organism
[2024-10-13] MEDS: LANTUS PER UNIT CHARGE SC SCH (20:43)
[2024-10-14 07:15] LABS: Hematocrit (blood only) 38.4 % (37.0-47.0); Hemoglobin 13.1 g/dl (12.0-16.0); Mean Corpuscular Hemoglobin 27.8 pg (25.0-34.0); Mean Corpuscular Hgb Conc 34.1 g/dL (32.0-36.0); Mean Corpuscular Volume 81.4 fL (80.0-100.0); Mean Platelet Volume 11.8 fL (9.4-12.4); Nucleated RBC # (auto) 0.02 K/uL (0.00-0.12); Nucleated RBC % (auto) 0.1 %; Platelet Count 114 K/uL (130-400); RDW Coefficient of Variation 14.6 % (11.5-14.5); RDW Standard Deviation 42.4 fL (36.4-46.3); Red Blood Count 4.72 M/uL (4.20-5.40); White Blood Count 18.51 K/ul (4.8-10.8)
[2024-10-14 07:44] LABS: BUN Creatinine Ratio 8.6 (10-20); Calcium 7.7 mg/dl (8.6-10.3); Potassium 3.9 mmol/L (3.5-5.1)
--- NOTE | 2024-10-14 07:56 | XRay Report ---
EXAM: XR KUB/Abdomen 1 view CLINICAL HISTORY: Follow up on colitis portable. TECHNIQUE: X-ray image of the abdomen obtained in 1 frontal projection COMPARISON: 10/12/2024 X-ray Abdomen. FINDINGS: Gas Pattern: Bowel loops with air in the lower abdomen without significant changes from the previous study. No evidence of bowel obstruction or distention. Soft Tissues: Soft tissues of the abdomen appear normal without evidence of masses. The liver, spleen, and kidneys are of normal size and position. Calcification in the right minor pelvis in probable relation to phlebolith. Spondylotic changes in the thoracolumbar spine. IMPRESSION: 1. No evidence of bowel obstruction or distention. 2. No interval changes. Electronically signed by Beckie Rome 10-14-2024 07:55 AM
[2024-10-14 08:28] LABS: Basophils % (auto) 0.5 %; Echinocytes 1+; Eosinophils # (auto) 0.38 K/uL (0.00-0.50); Eosinophils % (auto) 2.1 %; Immature Granulocytes # (auto) 1.26 K/uL (0.01-0.20); Immature Granulocytes % (auto) 6.8 %; Lymphocytes # (auto) 3.42 K/uL (1.20-3.40); Lymphocytes % (auto) 18.5 %; Monocytes # (auto) 0.73 K/uL (0.11-0.59); Monocytes % (auto) 3.9 %; Neutrophils # (auto) 12.62 K/uL (1.40-6.50); Neutrophils % (auto) 68.2 %; Polychromasia 1+
--- NOTE | 2024-10-14 08:57 | Surgery Progress Note ---
<Statement entered by Keisha Byrne, - 10/14/24 14:31> Pt states she if feeling better. She has no abdominal pain and is not TTP. Not significantly distended and is tolerating oral intake. Surgery will sign off at this time. Please all back with concerns or questions Date of Service October 11, 2024 Assessment & Plan (1) C. difficile colitis: Plan: pt denies abd pain at rest, TTP LLQ , RLQ, reports feeling better than yesterday VSS, WBC 18 (22) , continue IV abx tolerating full liquids, JOSHUA no surgical intervention continue conservation tx will follow along Admission and Anticipated Discharge Date Admission Date: October 07, 2024 Subjective pt denies abd pain, fever/chills , cp , sob Review of Systems Constitutional: no fever and no chills Respiratory: no dyspnea Cardiovascular: no chest pain Gastrointestinal: no abdominal pain, no nausea and no vomiting Physical Exam Constitutional: cooperative and comfortable; no acute distress Respiratory: normal respiratory effort; no respiratory distress Cardiovascular: Rate/Rhythm: regular rate Gastrointestinal (Abdomen): Percussion/Palpation: + abdomen tender and abdomen soft Results & Data Vital Signs (Past 12 Hours) Vital Signs Temp Pulse Pulse Resp BP Pulse Ox O2 Del Method 10/11/24 09:01 97.9 F 68 17 121/76 95 Room Air 10/11/24 03:45 97.7 F 72 18 118/69 96 Room Air 10/10/24 23:16 77 10/10/24 22:45 98.2 F 54 L 14 136/78 94 Room Air PG Care Time/CCT Total # of Minutes Spent Total Time Spent with Patient: Total time spent is greater than 50% in coordination of care (as documented) at patient's floor/unit and/or counseling patient: Coding Level of Care Code 30399 SUB INP/OBS CARE 10/18MIN Diagnoses C. difficile colitis A04.72
--- NOTE | 2024-10-14 09:13 | Hospitalist Progress Note ---
Date of Service October 14, 2024 Assessment & Plan (1) Acute hyperglycemia: (2) Insulin dependent type 2 diabetes mellitus: (3) Sepsis: (4) Acute colitis: (5) Hypertensive urgency: (6) Abnormal urinalysis: (7) Prolonged QT interval: (8) Hypomagnesemia: (9) Elevated troponin: Plan Jovita Rose is a 63y/o F with PMHx significant for aortic stenosis s/p TAVR [2017], CAD s/p drug-eluting stent to LAD, HFpEF, DM type II, hypothyroidism, HLD, liver cirrhosis 2/2 LEYVA, HTN, questionable paroxysmal atrial fibrillation, DANYELLE intolerant to CPAP, CKD stage III, benign paroxysmal positional vertigo 2/2 bilateral vestibular disorder, schizoaffective disorder, history of breast cancer s/p bilateral mastectomies + chemoradiation [2007], history of colon cancer s/p colon resection, history of GI bleed, history of C. difficile infection and splenic infarcts who presented to the ED via EMS on 10/07/24 with multiple complaints including nausea/vomiting, hyperglycemia and diarrhea. Of note, patient was recently discharged from our service on 10/03/24; she was admitted with strokelike symptoms which were thought to be as a result of hyperglycemia ISO uncontrolled, insulin-dependent DM type II. Stroke work-up was completely unremarkable. She was discharged home with [facility] services following that admission. C. difficile colitis Sepsis secondary to C. difficile Patient presented with multiple episode of diarrhea from home. History of recu rrent C. difficile infection CT abdomen pelvis on admission concerning for diffuse colitis on admission; no free air or abscess. C. difficile toxin positive Patient was admitted and was started on oral vancomycin 500 mg every 6 hours along with IV Flagyl. Repeat CT abdomen/pelvis obtained on 10/10 which is showed progressive worsening of the pancolitis. Continue on oral vancomycin every 6 hour along with IV Flagyl; Vancomycin CO every 8 hours added as per recommendation by infectious disease on 10/10/2023. I discussed with infectious disease again on 10/14/2024; recommended to continue current regimen. After improvement in diarrhea; recommend vancomycin taper at the time of the discharge Also, did not recommend follow-up with infectious disease. I also queried regarding Zinplava/Rebyota; infectious disease physician suggested that is not in formulary at [facility] and didn't recommend it. Continue fluids changed to 1/2 NS with KCl at 80cc/hr until improvement in diarrhea. plan to remove rectal tube/Deutsch catheter tomorrow and mobilize patient. Surgery on board for possible intervention in the future if patient's condition deteriorates. KUB daily PT/OT. Uncontrolled Insulin-Dependent DMII: Patient with known history of uncontrolled insulin-dependent DMII. Patient's outpatient insulin regimen is 44U of insulin degludec daily and 24U of insulin aspart TIDM. Started on Lantus/NovoLog. Pharmacy on board. Hyponatremia-serum sodium down trended to 126 on October 08, 2023; Plasma-Lyte was discontinued. Urine osm of 410 mosm/kg Serum sodium improved. Continue IV fluids for now given diarrhea. Prolonged QT Interval: QTc prolonged at 534ms on presenting EKG. Holding home trazodone, duloxetine and meclizine. Repeat EKG from 10/09 shows improved QTc of 485 ms Hypomagnesemia: Repleted Elevated Troponin: Initial troponin 20.7; presenting EKG with no evidence of acute ST changes. Likely demand ischemia ISO acute illness and dehydration Chronic HFpEF, Aortic Stenosis S/P TAVR, HTN: Previous ALMA from 05/2023 --> LVEF of 55 to 59%, no LV segmental wall motion abnormalities. Continue metoprolol tartrate 50mg BID as per above, ASA 81mg daily and atorvastatin 40mg daily. Plavix currently on hold for possible need for surgery. DVT Prophylaxis: SQ Heparin Code Status: FULL CODE PCP: Gregory Rausch MD Dispositionpatient currently admitted for severe C. difficile colitis showing sign of gradual improvement. After resolution of diarrhea; patient would benefit from rehab due to general deconditioning. Updated patient's daughter at bedside. Answer questions/queries. She is in agreement with the plan Time spent evaluating patient, direct bedside care, chart review, placing orders, interpretation of diagnostic studies, discussion with consultants, patient, and family members, as well as other required patient management activities is 50 minutes Please note the above document was generated using voice recognition software. It may contain grammatical, syntax or spelling errors. Any formal questions or concerns about the content, text or information contained within the body of this dictation should be directly addressed to the provider for clarification Admission and Anticipated Discharge Date Admission Date: October 07, 2024 Subjective Patient seen and examined at bedside She is comfortable; not in distress Reports that abdominal pain has gradually improved Continues to have diarrhea . Review of Systems Review of Systems: All systems reviewed & are unremarkable except as noted in Subjective Physical Exam Physical Exam: Constitutional: Awake, alert oriented x 3. Appears comfortable. Respiratory: Bilateral vesicular breath sound. Cardiovascular: RRR, no murmur, no edema Vessels: no JVD or carotid bruit Chest: normal inspection of chest Abdomen: Slightly distended, generalized tenderness present which is mild, overall improved compared to previous days Musculoskeletal: no cyanosis or clubbing, extremities motor strength 5/5 Skin: no rashes, warm and dry normal turgor Neurologic: PERRL, EOMI, accommodation nl, no face palsy, no dysarthria CN's II- XI intact bilaterally and moves all extremities Psychiatric: A+Ox3, euthymic affect Results & Data Results & Data Vital Signs (Past 12 Hours) Vital Signs Temp Pulse Pulse Resp BP BP Pulse Ox 10/14/24 07:24 36.7 C 66 18 142/72 H 94 10/14/24 04:23 36.9 C 70 18 132/71 96 10/14/24 00:19 37.2 C 70 16 120/58 L 97 10/13/24 21:46 81 O2 Del Method 10/14/24 07:24 Room Air 10/14/24 04:23 Room Air 10/14/24 00:19 Room Air 10/13/24 21:46 (3) Sepsis Sepsis acute organ dysfunction status: unspecified Sepsis type: sepsis due to unspecified organism Qualified Code(s): A41.9 - Sepsis, unspecified organism
--- NOTE | 2024-10-14 09:41 | Gastroenterology Progress Note ---
Date of Service October 14, 2024 Assessment & Plan (1) C. difficile colitis: Plan: 63 year old female w/ history of aortic stenosis s/p TAVR in 2017, CAD s/p drug- eluting stent to LAD, heart failure with preserved ejection fraction, T2DM, hypothyroidism, hyperlipidemia, LEYVA cirrhosis, HTN, paroxysmal atrial fibrillation, DANYELLE, CKD stage III, benign paroxysmal positional vertigo due to bilateral vestibular disorder, history of schizoaffective disorder, breast cancer s/p bilateral mastectomies + chemoradiation, colon cancer s/p colon resection admitted w/ nausea/vomiting and diarrhea. CT showing diffuse colitis, stool testing revealing C.diff toxin and gene positive, negative PCR. - WBC improving - KUB this AM w/o bowel obstruction or distention - Continue oral Vancomycin - Continue rectal Vancomycin - Continue IV Flagyl - Appreciate surgical input - She should be placed on a prophylaxis course of oral Vancomycin while other courses of ABX are used - [facility] to discuss candidacy for Zinplava GI to sign off. Please recall if needed. Suspect she will have a slow recovery from her C.diff infection as her white count slowly downtrends. Thank you for allowing us to participate in the care of this patient. Please call with any acute changes, questions or concerns. Please see addendum below with additional recommendation from my supervising physician. I spent a total of 40 minutes on the date of service in review of patient's record, and previously obtained information in person and appropriate medical visit, discussion and education of plan, with patient and/or caregiver, placing orders for tests/refer ral/procedures as medically necessary and documentation of pertinent clinical information in patient's medical records for their visit today. Admission and Anticipated Discharge Date Admission Date: October 07, 2024 Supervising Physician Co-Signing Physician Notes Improving. Reviewed with patient daughter at the bedside. Patient should stay on C. difficile treatment as long as broad-spectrum antibiotics are required. After broad-spectrum antibiotics are discontinued I would place her on a vancomycin taper least 125 mg p.o. twice daily for a week, 125 mg daily x 1 week. Then off. Patient should be considered for Zinplava therapy based on recurrent C. difficile. Ultimately control of her C. difficile will be dependent on recolonization of her gut with bacteria. If possible avoid broad- spectrum antibiotics. There is not good evidence that probiotics play a role in preventing recurrent C. difficile in the situation. Subjective Pt was seen and evaluated, chart reviewed. Notes today her pain is about the same. Continues to pass liquid stool. No black or bloody output. No nausea/vomiting. WBC 35 --> 18 KUB 10/14/24: No evidence of bowel obstruction or distention. No interval changes. Review of Systems Review of Systems: All other findings negative except as noted in HPI. Physical Exam Constitutional: WD/WN, vitals as above Respiratory: normal respiratory effort, lungs clear to auscultation Cardiovascular: Rate/Rhythm: regular rate Gastrointestinal (Abdomen): Inspection/Auscultation: normal bowel sounds Percussion/Palpation: abdomen soft; abdomen nontender, no guarding and abdomen not rigid Results & Data Results & Data Vital Signs (Past 12 Hours) Vital Signs Temp Pulse Pulse Resp BP BP Pulse Ox 10/14/24 07:24 98.1 F 66 18 142/72 H 94 10/14/24 04:23 98.4 F 70 18 132/71 96 10/14/24 00:19 99.0 F 70 16 120/58 L 97 10/13/24 21:46 81 O2 Del Method 10/14/24 07:24 Room Air 10/14/24 04:23 Room Air 10/14/24 00:19 Room Air 10/13/24 21:46 Laboratory Results 10/14/24 10/14/24 10/13/24 Range/Units 07:24 06:02 20:38 WBC 18.51 H (4.8-10.8) K/ul RBC 4.72 (4.20-5.40) M/uL Hgb 13.1 (12.0-16.0) g/dl Hct 38.4 (37.0-47.0) % MCV 81.4 (80.0-100.0) fL MCH 27.8 (25.0-34.0) pg MCHC 34.1 (32.0-36.0) g/dL RDW Std Deviation 42.4 (36.4-46.3) fL RDW Coeff of Valerio 14.6 H (11.5-14.5) % Plt Count 114 L (130-400) K/uL MPV 11.8 (9.4-12.4) fL Immature Gran % (Auto) 6.8 % Neut % (Auto) 68.2 % Lymph % (Auto) 18.5 % [place] % (Auto) 3.9 % Eos % (Auto) 2.1 % Baso % (Auto) 0.5 % Neut # (Auto) 12.62 H (1.40-6.50) K/uL Lymph # (Auto) 3.42 H (1.20-3.40) K/uL [place] # (Auto) 0.73 H (0.11-0.59) K/uL Eos # (Auto) 0.38 (0.00-0.50) K/uL Baso # (Auto) 0.10 (0.00-0.20) K/uL Immature Gran # (Auto) 1.26 H (0.01-0.20) K/uL Absolute Nucleated RBC 0.02 (0.00-0.12) K/uL Nucleated RBC % (auto) 0.1 % Polychromasia 1+ Echinocytes 1+ Sodium 135 L (136-145) mmol/L Potassium 3.9 (3.5-5.1) mmol/L Chloride 111 H (98-107) mmol/L Carbon Dioxide 18 L (21-32) mmol/L Anion Gap 6 (3-11) BUN 7 (6-23) mg/dl Creatinine 0.81 (0.6-1.2) mg/dl Est Cr Clr Drug Dosing 64.0 ml/min eGFR 80.51 BUN/Creatinine Ratio 8.6 L (10-20) Glucose 124 H (70-99(Fasting)) mg/dl POC Glucose 123 H 112 H (70-99) mg/dl Fasting Glucose (70-99) mg/dl Lactate (0.4-2.0) mmol/L Calcium 7.7 L (8.6-10.3) mg/dl 10/13/24 10/13/24 10/13/24 Range/Units 16:24 11:15 10:18 WBC 22.60 H (4.8-10.8) K/ul RBC 4.92 (4.20-5.40) M/uL Hgb 13.5 (12.0-16.0) g/dl Hct 39.0 (37.0-47.0) % MCV 79.3 L (80.0-100.0) fL MCH 27.4 (25.0-34.0) pg MCHC 34.6 (32.0-36.0) g/dL RDW Std Deviation 42.0 (36.4-46.3) fL RDW Coeff of Valerio 14.6 H (11.5-14.5) % Plt Count 96 L (130-400) K/uL MPV 10.4 (9.4-12.4) fL Immature Gran % (Auto) % Neut % (Auto) % Lymph % (Auto) % [place] % (Auto) % Eos % (Auto) % Baso % (Auto) % Neut # (Auto) (1.40-6.50) K/uL Lymph # (Auto) (1.20-3.40) K/uL [place] # (Auto) (0.11-0.59) K/uL Eos # (Auto) (0.00-0.50) K/uL Baso # (Auto) (0.00-0.20) K/uL Immature Gran # (Auto) (0.01-0.20) K/uL Absolute Nucleated RBC 0.03 (0.00-0.12) K/uL Nucleated RBC % (auto) 0.1 % Polychromasia Echinocytes Sodium 133 L (136-145) mmol/L Potassium 3.6 (3.5-5.1) mmol/L Chloride 110 H (98-107) mmol/L Carbon Dioxide 18 L (21-32) mmol/L Anion Gap 5 (3-11) BUN 9 (6-23) mg/dl Creatinine 0.78 (0.6-1.2) mg/dl Est Cr Clr Drug Dosing 65.6 ml/min eGFR 84.24 BUN/Creatinine Ratio (10-20) Glucose (70-99(Fasting)) mg/dl POC Glucose 84 109 H (70-99) mg/dl Fasting Glucose 136 H (70-99) mg/dl Lactate 1.4 (0.4-2.0) mmol/L Calcium 7.4 L (8.6-10.3) mg/dl PG Care Time/CCT Total # of Minutes Spent Total Time Spent with Patient: Total time spent is greater than 50% in coordination of care (as documented) at patient's floor/unit and/or counseling patient: Coding Level of Care Code 83930 SUB INP/OBS CARE MIN Diagnoses C. difficile colitis A04.72
[2024-10-14] MEDS: HEPARIN SOD 5,000 UNIT/0.5 ML VIAL SQ SCH (13:17)
--- NOTE | 2024-10-14 14:39 | Communication Note ---
Date of Service: October 14, 2024 Pt seen and examined with Dr Byrne, Pt states she is feeling better. She has no abdominal pain, Not significantly distended and is tolerating oral intake. Surgery will sign off at this time. Please all back with concerns or questions
[2024-10-15 06:45] LABS: Basophils # (auto) 0.09 K/uL (0.00-0.20); Basophils % (auto) 0.4 %; Eosinophils # (auto) 0.24 K/uL (0.00-0.50); Hematocrit (blood only) 38.5 % (37.0-47.0); Hemoglobin 13.4 g/dl (12.0-16.0); Immature Granulocytes # (auto) 1.05 K/uL (0.01-0.20); Immature Granulocytes % (auto) 4.3 %; Lymphocytes % (auto) 15.6 %; Mean Corpuscular Hemoglobin 27.5 pg (25.0-34.0); Mean Corpuscular Hgb Conc 34.8 g/dL (32.0-36.0); Mean Corpuscular Volume 79.1 fL (80.0-100.0); Mean Platelet Volume 10.8 fL (9.4-12.4); Monocytes # (auto) 0.87 K/uL (0.11-0.59); Monocytes % (auto) 3.6 %; Neutrophils # (auto) 18.36 K/uL (1.40-6.50); Neutrophils % (auto) 75.1 %; Nucleated RBC # (auto) 0.02 K/uL (0.00-0.12); Nucleated RBC % (auto) 0.1 %; Platelet Count 134 K/uL (130-400); RDW Coefficient of Variation 14.8 % (11.5-14.5); RDW Standard Deviation 42.2 fL (36.4-46.3); Red Blood Count 4.87 M/uL (4.20-5.40); White Blood Count 24.41 K/ul (4.8-10.8)
[2024-10-15 06:55] LABS: Calcium 7.9 mg/dl (8.6-10.3); Creatinine Clr Calc Pharmacy 57.4 ml/min; Potassium 4.4 mmol/L (3.5-5.1)
[2024-10-15] MEDS: LANTUS PER UNIT CHARGE SC SCH (09:10)
--- NOTE | 2024-10-15 10:03 | Hospitalist Progress Note ---
Date of Service October 15, 2024 Assessment & Plan (1) Acute hyperglycemia: (2) Insulin dependent type 2 diabetes mellitus: (3) Sepsis: (4) Acute colitis: (5) Hypertensive urgency: (6) Abnormal urinalysis: (7) Prolonged QT interval: (8) Hypomagnesemia: (9) Elevated troponin: Plan Jovita Rose is a 63y/o F with PMHx significant for aortic stenosis s/p TAVR [2017], CAD s/p drug-eluting stent to LAD, HFpEF, DM type II, hypothyroidism, HLD, liver cirrhosis 2/2 LEYVA, HTN, questionable paroxysmal atrial fibrillation, DANYELLE intolerant to CPAP, CKD stage III, benign paroxysmal positional vertigo 2/2 bilateral vestibular disorder, schizoaffective disorder, history of breast cancer s/p bilateral mastectomies + chemoradiation [2007], history of colon cancer s/p colon resection, history of GI bleed, history of C. difficile infection and splenic infarcts who presented to the ED via EMS on 10/07/24 with multiple complaints including nausea/vomiting, hyperglycemia and diarrhea. Of note, patient was recently discharged from the hospital on 10/03/24; she was admitted with strokelike symptoms which were thought to be as a result of hyperglycemia in the setting of uncontrolled, insulin-dependent DM type II. Stroke work-up was completely unremarkable. She was discharged home with [facility] services following that admission. C. difficile colitis Sepsis secondary to C. difficile Patient presented with multiple episode of diarrhea from home. History of recurrent C. difficile infection CT abdomen pelvis on admission concerning for diffuse colitis on admission; no free air or abscess. C. difficile toxin positive Patient was admitted and was started on oral vancomycin 500 mg every 6 hours along with IV Flagyl. Repeat CT abdomen/pelvis obtained on 10/10 showed progressive worsening of the pancolitis. ID was consulted, recommended the following: "C. diff colitis concern for developing toxic megacolon - Agree with Vancomycin 500 mg PO QID and Metronidazole 500 mg IV q8, please add Vancomycin 500 mg OH (Per Rectum) q8 to try to prevent progression. - Agree with Surgical consult and recommendation, if patient does not improve, recommend surgical intervention." General Surgery was consulted, recommended/stated the following: -continue conservative rx -no surgical intervention required GI was consulted, recommended/stated the following: "- Continue oral Vancomycin w/ an extended tapering course - Continue rectal Vancomycin - Continue IV Flagyl - Appreciate surgical input She should be placed on a prophylaxis course of oral Vancomycin while other courses of ABX are used - Follow up with [facility] as an outpatient to discuss candidacy for Zinplava" Continue fluids changed to 1/2 NS with KCl at 80cc/hr until improvement in diarrhea. Rectal tube removed on 10/15 as well as wilson Continue KUB daily PT/OT- recommending home with HH Follow up with ID, Dr Pacheco once more on 10/16 for specific discharge med recs and dates of completion. Uncontrolled Insulin-Dependent DMII: Hgba1c of 10.3 Patient with known history of uncontrolled insulin-dependent DMII. Patient's outpatient insulin regimen is 44U of insulin degludec daily and 24U of insulin aspart TIDM. Started on Lantus/NovoLog. Pharmacy on board. Hyponatremia serum sodium down trended to 126 on October 08, 2023 Plasma-Lyte was discontinued Urine osm of 410 mosm/kg Serum sodium improved Continue IV fluids for now given diarrhea Continue to monitor Improved Prolonged QT Interval QTc prolonged at 534ms on presenting EKG. Holding home trazodone, duloxetine and meclizine. Repeat EKG from 10/09 shows improved QTc of 485 ms Continue to monitor on telemetry Hypomagnesemia Replete as needed Elevated Troponin Initial troponin 20.7 presenting EKG with no evidence of acute ST changes Likely demand ischemia ISO acute illness and dehydration Chronic HFpEF, Aortic Stenosis S/P TAVR, HTN: Previous ALMA from 05/2023 --> LVEF of 55 to 59%, no LV segmental wall motion abnormalities Continue metoprolol tartrate 50mg BID as per above, ASA 81mg daily and atorvastatin 40mg daily Plavix currently on hold for possible need for surgery. Diet: DMII or low fiber DVT Prophylaxis: SQ Heparin Code Status: FULL CODE PCP: Gregory Rausch MD DispositionPT/OT recommending home with home health Admission and Anticipated Discharge Date Admission Date: October 07, 2024 Subjective patient was seen laying in the side bed At the time of exam had both rectal tube and Wilson in Later notified by nursing staff that she had worked with both physical therapy and Occupational Therapy and the rectal tube had been removed Review of Systems Review of Systems: All systems reviewed & are unremarkable except as noted in Subjective Physical Exam Physical Exam: General: Alert, oriented. No acute distress HEENT: NC/AT CV: RRR Resp: Breath sounds clear bilaterally, no increased effort of breathing Abdomen: Soft, mildly tender Extremities: No edema in lower extremities bilaterally. : both rectal tube and wilson in at time of exam Results & Data Results & Data Vital Signs (Past 12 Hours) Vital Signs Temp Pulse Resp BP Pulse Ox O2 Del Method 10/15/24 09:24 Room Air 10/15/24 07:27 36.9 C 114 H 17 147/75 H 96 Room Air 10/15/24 03:42 36.9 C 100 H 18 158/87 H 96 Room Air 10/14/24 23:35 36.6 C 78 16 127/77 96 Room Air Diagnostic Findings Chest X-Ray 10/07/24 12:41 XR chest 1V portable CLINICAL HISTORY: weak TECHNIQUE: Single frontal radiograph of the chest was obtained. Comparison: Comparison is made to chest radiograph 10/01/2044 FINDINGS: Median sternotomy wires are unchanged. Calcified aortic knob is seen. Aortic valvular prosthesis is again seen. The lungs are clear. No evidence of pleural effusion or pneumothorax. IMPRESSION: No acute chest disease. ACT 112: Negative or not required by law. Electronically signed by: Wilmer Saunders M.D. 10/07/2024 1:03 PM Abdomen/Pelvis CT 10/07/24 15:19 INDICATION: Diarrhea. COMPARISON: CT from 06/05/2024. TECHNIQUE: Axial CT images of the abdomen and pelvis were obtained without IV contrast administration. Coronal and sagittal reformations were reviewed. FINDINGS: Visualized lung bases appear unremarkable. Small left hepatic lobe cyst again noted. The gallbladder, spleen, pancreas and left adrenal gland appear unremarkable. Right adrenal gland lipid rich adenoma appears unchanged. Renal cysts again noted, no significant change. Nonobstructing 4 mm right renal calculus. Diffuse colonic wall thickening with adjacent inflammation. No evidence of bowel obstruction/appendicitis. No free air or abscess. No free air. No drainable fluid collection. The urinary bladder appears unremarkable. Phleboliths in the pelvis. No acute osseous abnormality evident. IMPRESSION: 1. Findings concerning for diffuse colitis. No free air or abscess. 2. Nonobstructing 2 mm right renal calculus. Electronically signed by Dada Ricks 10-07-2024 5:[address] 10/08/24 01:09 EXAM: CT head/brain wo con CLINICAL HISTORY: AMS, Thrombocytopenia. TECHNIQUE: An axial non-contrast CT scan of the brain was performed from the skull base to the high parietal region. One of the following dose reduction techniques were utilized for this exam: Automated exposure control, adjustment of the mA and/or kV according to patient size, and use of iterative reconstruction. COMPARISON: CT head dated 10/02/2024 FINDINGS: Brain Parenchyma: A few chronic lacunar infarcts are identified in both basal ganglia and periventricular region Normal attenuation cerebellum, and brainstem. No evidence of acute infarct, hemorrhage, or mass effect. Mild diffuse hypodensity is identified in periventricular deep white matter Atherosclerotic changes seen in both internal carotid and vertebral arteries Ventricular System: Age-appropriate mild dilatation of the ventricular system seen No evidence of hydrocephalus Subarachnoid Spaces: Mild widening of sulci is identified No evidence of subarachnoid hemorrhage or extra-axial fluid collections. Cerebellum and Brainstem: Normal size and density No masses, lesions, or areas of abnormal density. Orbits: Normal appearance of the globes, optic nerves, and extraocular muscles. No evidence of orbital masses or abnormal density Sinuses: Clear paranasal sinuses. No evidence of sinusitis or mucosal thickening. Mild deviation of the nasal septum towards right side Mastoid Air Cells: Minimal opacification of both mastoid air cells Skull: Normal skull morphology. Hyperostosis frontalis interna seen IMPRESSION: 1. No evidence of intracranial hemorrhage, gross territorial infarction or mass-effect. In view of patient's history MRI brain may be obtained for further evaluation 2. Few chronic lacunar infarcts are identified in both basal ganglia and periventricular region, with no interval change 3. Age-appropriate volume loss in brain parenchyma and mild periventricular deep white matter ischemic changes, with no significant interval changes 4. Interval stable minimal bilateral mastoiditis 5. The previously seen hyperdense dural sinuses are not visualized in the current examination 6. Other significant interval changes Electronically signed by Beckie Rome 10-08-2024 02:23 AM Abdomen/Pelvis CT 10/10/24 08:[address] WITH IV CONTRAST CT DOSE: 1187.51 mGy.cm HISTORY: Acute onset abdominal pain with possible colitis Follow up on progression of colitis TECHNIQUE: Multiaxial CT images of the abdomen and pelvis were performed following the IV administration of 90 cc of Optiray, A dose lowering technique was utilized adhering to the principles of ALARA. COMPARISON STUDY: 10/07/2024, 06/05/2024 FINDINGS: Partially imaged left breast implant with pericapsular soft tissue thickening and small pericapsular collection which is similar to prior. Clear lung bases. Cardiomegaly with retained epicardial leads. No pneumatosis or pneumoperitoneum. The spleen is enlarged, 16 cm. Subcentimeter ill-defined hypodense focus of the mid spleen is unchanged and likely benign. Unremarkable pancreas and left adrenal gland. Right adrenal myelolipoma, 1.6 cm. There are a few small cysts noted within the liver. Mild marginal nodularity of the liver may represent early cirrhosis. Patency of the hepatic and portal veins. Unremarkable gallbladder. Right renal cysts are noted. There is a 2.6 cm exophytic mildly hyperdense lesion of the right kidney which is unchanged and favors a complex cyst. 5 mm nonobstructing calculus of the inferior pole right kidney. No hydronephrosis. Decompressed urinary bladder with Wlison catheter in place. Hysterectomy. Atherosclerosis of the aorta without aneurysm. Mild distal esophageal wall thickening with small hiatal hernia. There is progressively worsened circumferential wall thickening of the rectum and majority of the large bowel with adjacent pericolonic and perirectal inflammatory stranding. Progressive small amount of abdominal pelvic ascites. Fluid-filled loops of small bowel are noted with a few loops of small bowel wall thickening also present. A normal appendix is not visualized. Previously noted cystic structure adjacent to the cecum is obscured by the ascites. No acute fracture. Mild generalized body wall edema. IMPRESSION: 1. Progressive worsening of the likely infectious or inflammatory pancolitis with probable associated mild enteritis. 2. Small amount of abdominopelvic ascites has progressed from 10/07/2024. 3. No bowel obstruction or pneumoperitoneum. 4. Right nephrolithiasis without hydronephrosis. ACT 112: Negative or not required by law. The above report was generated using voice recognition software. It may contain grammatical, syntax or spelling errors. Electronically signed by: Rafa Leslie M.D. 10/10/2024 11:43 AM KUB X-Ray 10/11/24 06:00 EXAM: Radiograph of the Abdomen 1 View INDICATION: Follow-up colitis TECHNIQUE: Frontal supine view of the abdomen/pelvis. COMPARISON: CT abdomen 10/07/2024 FINDINGS: Limitations: None. Gastrointestinal tract: Comparing the plain radiographs to the CT, there is probable stable colitis. Slightly more colonic air noted. No distention. Organs: Visualized organ shadows appear grossly normal. Bones/joints: No fracture, erosion or dislocation. Soft tissues: No abnormality noted. No radiopaque foreign body noted. IMPRESSION: Allowing for limitations of comparing different modalities, colitis is grossly stable. There is slightly more air in the colon without distention. ACT 112: Negative or not required by law. Electronically signed by Mariana Nowak 10-11-2024 12:05 PM KUB X-Ray 10/12/24 06:00 EXAM: XR KUB/Abdomen 1 view CLINICAL HISTORY: Follow up on colitis portable TECHNIQUE: X-ray image of the abdomen obtained in 1 frontal projection. COMPARISON: Prior X-ray dated 10/11/2024 for comparison. FINDINGS: Gas Pattern: Few gas filled bowel loops in the lower abdomen. No evidence of bowel obstruction or distention. Soft Tissues: Soft tissues of the abdomen appear normal without evidence of masses or calcifications. Liver, spleen, and kidneys are of normal size and position. Spondylotic changes in thoracolumbar spine. IMPRESSION: 1. Few gas filled bowel loops in the lower abdomen, new finding. 2. No evidence of bowel obstruction or distention. Electronically signed by Beckie Rome 10-12-2024 09:05 AM KUB X-Ray 10/13/24 08:00 KUB CLINICAL HISTORY: Follow up on colitis COMPARISON STUDY: CT of the abdomen and pelvis October 10, 2004. KUB October 12, 2024. FINDINGS: Mild gaseous distention of small and large bowel has slightly increased since KUB of October 12, 2024. Ahaustral appearance of portions of the colon represent underlying colitis, as shown on prior CT. Sensitivity for detection of free air is diminished on supine exam but none is identified. No urinary calculi are identified. IMPRESSION: 1. Mild increase in gaseous distention of the colon with radiographic evidence for colitis, as shown on CT. 2. Several prominent gas-filled loops of small bowel without convincing evidence for a bowel obstruction. The findings may represent an associated ileus. ACT 112: Negative or not required by law. Electronically signed by: Fabian Flores M.D. 10/13/2024 9:00 AM KUB X-Ray 10/14/24 08:00 EXAM: XR KUB/Abdomen 1 view CLINICAL HISTORY: Follow up on colitis portable. TECHNIQUE: X-ray image of the abdomen obtained in 1 frontal projection COMPARISON: 10/12/2024 X-ray Abdomen. FINDINGS: Gas Pattern: Bowel loops with air in the lower abdomen without significant changes from the previous study. No evidence of bowel obstruction or distention. Soft Tissues: Soft tissues of the abdomen appear normal without evidence of masses. The liver, spleen, and kidneys are of normal size and position. Calcification in the right minor pelvis in probable relation to phlebolith. Spondylotic changes in the thoracolumbar spine. IMPRESSION: 1. No evidence of bowel obstruction or distention. 2. No interval changes. Electronically signed by Beckie Rome 10-14-2024 07:55 AM KUB X-Ray 10/15/24 09:39 KUB HISTORY: Cdiff COMPARISON STUDY: 10/14/2024 through 10/10/2024 FINDINGS: There is mild gaseous gastric distention. There is persistent colonic wall thickening, better seen on the prior CT. There is no evidence of bowel obstruction. No gross free air. IMPRESSION: Persistent colonic wall thickening with no bowel obstruction seen. ACT 112: Negative or not required by law. The above report was generated using voice recognition software. It may contain grammatical, syntax or spelling errors. Electronically signed by: Kal Quintana M.D. 10/15/2024 10:10 AM (3) Sepsis Sepsis acute organ dysfunction status: unspecified Sepsis type: sepsis due to unspecified organism Qualified Code(s): A41.9 - Sepsis, unspecified organism
--- NOTE | 2024-10-15 10:08 | Gastroenterology Progress Note ---
Date of Service October 15, 2024 Assessment & Plan (1) C. difficile colitis: Plan: 63 year old female w/ history of aortic stenosis s/p TAVR in 2017, CAD s/p drug- eluting stent to LAD, heart failure with preserved ejection fraction, T2DM, hypothyroidism, hyperlipidemia, LEYVA cirrhosis, HTN, paroxysmal atrial fibrillation, DANYELLE, CKD stage III, benign paroxysmal positional vertigo due to bilateral vestibular disorder, history of schizoaffective disorder, breast cancer s/p bilateral mastectomies + chemoradiation, colon cancer s/p colon resection admitted w/ nausea/vomiting and diarrhea. CT showing diffuse colitis, stool testing revealing C.diff toxin and gene positive, negative PCR. - Continue oral Vancomycin w/ an extended tapering course - Continue rectal Vancomycin - Continue IV Flagyl - Appreciate surgical input - She should be placed on a prophylaxis course of oral Vancomycin while other courses of ABX are used - Follow up with [facility] as an outpatient to discuss candidacy for [facility] to sign off. Please recall if needed. Suspect she will have a slow recovery from her C.diff infection as her white count slowly downtrends. Thank you for allowing us to participate in the care of this patient. Please call with any acute changes, questions or concerns. Please see addendum below with additional recommendation from my supervising physician. I spent a total of 40 minutes on the date of service in review of patient's record, and previously obtained information in person and appropriate medical visit, discussion and education of plan, with patient and/or caregiver, placing orders for tests/referral/procedures as medically necessary and documentation of pertinent clinical information in patient's medical records for their visit today. Admission and Anticipated Discharge Date Admission Date: October 07, 2024 Supervising Physician Co-Signing Physician Notes Patient examined at the bedside. She is just finished eating her supper. She looks about the same as the last 2 to 3 days. White count slightly up today. Her abdomen remains relatively benign. I reviewed KUB. No evidence of colonic dilatation or toxic megacolon. Continue IV antibiotics oral antibiotic. Subjective Pt was seen and evaluated, chart reviewed. Notes her abd pain is improving. No nausea/vomiting. Tolerating oral intake. No fevers. WBC 24. Review of Systems Review of Systems: All other findings negative except as noted in HPI. Physical Exam Constitutional: WD/WN, vitals as above Respiratory: normal respiratory effort Cardiovascular: Rate/Rhythm: + tachycardic Gastrointestinal (Abdomen): Percussion/Palpation: abdomen soft; abdomen nontender Results & Data Results & Data Vital Signs (Past 12 Hours) Vital Signs Temp Pulse Resp BP Pulse Ox O2 Del Method 10/15/24 09:24 Room Air 10/15/24 07:27 98.4 F 114 H 17 147/75 H 96 Room Air 10/15/24 03:42 98.4 F 100 H 18 158/87 H 96 Room Air 10/14/24 23:35 97.9 F 78 16 127/77 96 Room Air Laboratory Results 10/15/24 10/15/24 10/14/24 Range/Units 07:10 06:02 20:51 WBC 24.41 H (4.8-10.8) K/ul RBC 4.87 (4.20-5.40) M/uL Hgb 13.4 (12.0-16.0) g/dl Hct 38.5 (37.0-47.0) % MCV 79.1 L (80.0-100.0) fL MCH 27.5 (25.0-34.0) pg MCHC 34.8 (32.0-36.0) g/dL RDW Std Deviation 42.2 (36.4-46.3) fL RDW Coeff of Valerio 14.8 H (11.5-14.5) % Plt Count 134 (130-400) K/uL MPV 10.8 (9.4-12.4) fL Immature Gran % (Auto) 4.3 % Neut % (Auto) 75.1 % Lymph % (Auto) 15.6 % Rosebud % (Auto) 3.6 % Eos % (Auto) 1.0 % Baso % (Auto) 0.4 % Neut # (Auto) 18.36 H (1.40-6.50) K/uL Lymph # (Auto) 3.80 H (1.20-3.40) K/uL Rosebud # (Auto) 0.87 H (0.11-0.59) K/uL Eos # (Auto) 0.24 (0.00-0.50) K/uL Baso # (Auto) 0.09 (0.00-0.20) K/uL Immature Gran # (Auto) 1.05 H (0.01-0.20) K/uL Absolute Nucleated RBC 0.02 (0.00-0.12) K/uL Nucleated RBC % (auto) 0.1 % Sodium 133 L (136-145) mmol/L Potassium 4.4 (3.5-5.1) mmol/L Chloride 109 H (98-107) mmol/L Carbon Dioxide 17 L (21-32) mmol/L Anion Gap 7 (3-11) BUN 9 (6-23) mg/dl Creatinine 0.90 (0.6-1.2) mg/dl Est Cr Clr Drug Dosing 57.4 ml/min eGFR 70.95 BUN/Creatinine Ratio 10.0 (10-20) Glucose 211 H (70-99(Fasting)) mg/dl POC Glucose 191 H 122 H (70-99) mg/dl Calcium 7.9 L (8.6-10.3) mg/dl 10/14/24 10/14/24 Range/Units 16:13 11:44 WBC (4.8-10.8) K/ul RBC (4.20-5.40) M/uL Hgb (12.0-16.0) g/dl Hct (37.0-47.0) % MCV (80.0-100.0) fL MCH (25.0-34.0) pg MCHC (32.0-36.0) g/dL RDW Std Deviation (36.4-46.3) fL RDW Coeff of Valerio (11.5-14.5) % Plt Count (130-400) K/uL MPV (9.4-12.4) fL Immature Gran % (Auto) % Neut % (Auto) % Lymph % (Auto) % Rosebud % (Auto) % Eos % (Auto) % Baso % (Auto) % Neut # (Auto) (1.40-6.50) K/uL Lymph # (Auto) (1.20-3.40) K/uL Rosebud # (Auto) (0.11-0.59) K/uL Eos # (Auto) (0.00-0.50) K/uL Baso # (Auto) (0.00-0.20) K/uL Immature Gran # (Auto) (0.01-0.20) K/uL Absolute Nucleated RBC (0.00-0.12) K/uL Nucleated RBC % (auto) % Sodium (136-145) mmol/L Potassium (3.5-5.1) mmol/L Chloride (98-107) mmol/L Carbon Dioxide (21-32) mmol/L Anion Gap (3-11) BUN (6-23) mg/dl Creatinine (0.6-1.2) mg/dl Est Cr Clr Drug Dosing ml/min eGFR BUN/Creatinine Ratio (10-20) Glucose (70-99(Fasting)) mg/dl POC Glucose 141 H 128 H (70-99) mg/dl Calcium (8.6-10.3) mg/dl PG Care Time/CCT Total # of Minutes Spent Total Time Spent with Patient: Total time spent is greater than 50% in coordination of care (as documented) at patient's floor/unit and/or counseling patient: Coding Level of Care Code 05267 SUB INP/OBS CARE 2/35MIN Diagnoses C. difficile colitis A04.72
--- NOTE | 2024-10-15 10:13 | XRay Report ---
KUB HISTORY: Cdiff COMPARISON STUDY: 10/14/2024 through 10/10/2024 FINDINGS: There is mild gaseous gastric distention. There is persistent colonic wall thickening, bett er seen on the prior CT. There is no evidence of bowel obstruction. No gross free air. IMPRESSION: Persistent colonic wall thickening with no bowel obstruction seen. ACT 112: Negative or not required by law. The above report was generated using voice recognition software. It may contain grammatical, syntax o r spelling errors. Electronically signed by: Kal Quintana M.D. 10/15/2024 10:10 AM
--- NOTE | 2024-10-15 10:56 | Pharmacy Report ---
Pharmacy Glycemic Short Note 2 - Date of Service October 15, 2024 - Glycemic Short BSG Results (Last 24 hours): 10/14/24 10/14/24 10/14/24 11:44 16:13 20:51 Glucose POC Glucose 128 H 141 H 122 H 10/15/24 10/15/24 06:02 07:10 Glucose 211 H POC Glucose 191 H OUTPATIENT ANTIDIABETIC REGIMEN: * Tresiba 44 units SC AM * Novolog 24 units SC AC * Ozempic 2 mg SC every Sunday HbA1c: * 10.3% (10/07/24) ASSESSMENT: 10/15/24: * BSGs in goal range yesterday (10/14). Fasting BSG elevated at 211 today. * Patients diet was increased from liquids to full T2DM diet so patient may be eating more now * Will add Lantus morning coverage to help better cover patients increased food intake while decreasing the bedtime dose to aim for a total of 40 units/daily. * Pt remains on current C.diff tx 10/13/24: * Blood sugars have been labile over past several days with variable basal insulin doses * Hyperglycemia noted yesterday, but episode of hypoglycemia this morning (blood sugar of 68 mg/dL) * Despite hyperglycemia yesterday, will slightly loosen Novolog and hold off on basal for now due to hypoglycemia this AM * Remains on clear liquid/T2DM diet * Ongoing treatment for C. difficile colitis with vancomycin PO + enema and metronidazole IV 10/10 * Jovita received 113 units of insulin yesterday (65 were basal) * Fasting BSG this AM acceptable, reported nausea and vomiting this AM, diet changed to NPO with N/V and C. Diff diarrhea. Will reduce basal insulin by approximately 50% due to NPO status. Will transition back to HS administration per CDE recommendations. * No changes to NovoLog at this time, correction factor appears adequate. * She remains on IV Flagyl and PO Vanc 10/08 * 63 yo F admitted on 10/07/24 secondary to nausea/vomiting from hyperglycemia. Pharmacy has been consulted to assist with inpatient glycemic management. Patient is a Type 2 diabetic as an outpatient. Please refer to outpatient regimen and most recent HbA1c above. * Patient well known to pharmacy glycemic service. Was recently admitted to [facility] from 10/01/24 - 10/03/24. * BSG was above 400 mg/dL upon arrival. Received two separate 10 unit IV insulin boluses yesterday afternoon. BSG decreased to 325 mg/dL. * Started on subcutaneous basal-bolus insulin last evening based on previous admission data. Received 55 units of basal and 28 units bolus. HS and midnight checks were 319 and 169 mg/dL. * Fasting BSG was 188 mg/dL this AM. Patient being treated for C. diff infection with PO vanc and IV metronidazole. Ordered a T2DM diet but not eating much per RN. Had 2 nigerian ices for lunch. * Will continue with previously ordered basal dose for now. Will attempt to transition this to AM dosing to match outpatient regimen. Give a dose around n oon today and then can start with AM tomorrow. * Did tighten Novolog slightly this morning. PLAN FOR INPATIENT GLYCEMIC CONTROL: * Basal insulin - Increase * Lantus 10-15-10 units SC HS (see EHR for details) * Add 20 units in the mornings * Bolus insulin - loosen * NovoLog per scale ACHS or Q6hrs while NPO * Goal Range: Low 110 mg/dL - High 140 mg/dL * Correction Factor: 12 mg/dL/unit * Nutritional / Prandial insulin per carb ratio of 1 unit per 3 grams CHO consumed
[2024-10-16 06:48] LABS: Hematocrit (blood only) 36.1 % (37.0-47.0); Hemoglobin 12.4 g/dl (12.0-16.0); Mean Corpuscular Hemoglobin 27.6 pg (25.0-34.0); Mean Corpuscular Hgb Conc 34.3 g/dL (32.0-36.0); Mean Corpuscular Volume 80.4 fL (80.0-100.0); Mean Platelet Volume 10.8 fL (9.4-12.4); Nucleated RBC # (auto) 0.02 K/uL (0.00-0.12); Nucleated RBC % (auto) 0.1 %; Platelet Count 168 K/uL (130-400); RDW Coefficient of Variation 14.5 % (11.5-14.5); RDW Standard Deviation 41.8 fL (36.4-46.3); Red Blood Count 4.49 M/uL (4.20-5.40); White Blood Count 26.01 K/ul (4.8-10.8)
[2024-10-16 07:06] LABS: Albumin Level 2.3 gm/dl (3.4-5.0); BUN Creatinine Ratio 11.9 (10-20); Bilirubin,Total 0.6 mg/dl (0.2-1.0); Calcium 7.9 mg/dl (8.6-10.3); Creatinine Clr Calc Pharmacy 61.5 ml/min; Globulin 2.3 gm/dl (2.5-4.0); Magnesium 1.3 mg/dl (1.7-2.4); Phosphorus 2.7 mg/dl (2.5-4.9); Potassium 4.1 mmol/L (3.5-5.1); Total Protein 4.6 gm/dl (6.0-8.3)
[2024-10-16 07:14] LABS: Basophils # (auto) 0.06 K/uL (0.00-0.20); Basophils % (auto) 0.2 %; Eosinophils # (auto) 0.24 K/uL (0.00-0.50); Eosinophils % (auto) 0.9 %; Immature Granulocytes # (auto) 0.94 K/uL (0.01-0.20); Immature Granulocytes % (auto) 3.6 %; Lymphocytes # (auto) 3.94 K/uL (1.20-3.40); Lymphocytes % (auto) 15.1 %; Monocytes # (auto) 0.81 K/uL (0.11-0.59); Monocytes % (auto) 3.1 %; Neutrophils # (auto) 20.02 K/uL (1.40-6.50); Neutrophils % (auto) 77.1 %
[2024-10-16] MEDS: MAGNESIUM SULFATE / D5W 1 GM/100 ML BAG IV SCH (10:38)
--- NOTE | 2024-10-16 12:25 | Hospitalist Progress Note ---
Date of Service October 16, 2024 Assessment & Plan (1) Acute hyperglycemia: (2) Insulin dependent type 2 diabetes mellitus: (3) Sepsis: (4) Acute colitis: (5) Hypertensive urgency: (6) Abnormal urinalysis: (7) Prolonged QT interval: (8) Hypomagnesemia: (9) Elevated troponin: Plan Jovita Rose is a 63y/o F with PMHx significant for aortic stenosis s/p TAVR [2017], CAD s/p drug-eluting stent to LAD, HFpEF, DM type II, hypothyroidism, HLD, liver cirrhosis 2/2 LEYVA, HTN, questionable paroxysmal atrial fibrillation, DANYELLE intolerant to CPAP, CKD stage III, benign paroxysmal positional vertigo 2/2 bilateral vestibular disorder, schizoaffective disorder, history of breast cancer s/p bilateral mastectomies + chemoradiation [2007], history of colon cancer s/p colon resection, history of GI bleed, history of C. difficile infection and splenic infarcts who presented to the ED via EMS on 10/07/24 with multiple complaints including nausea/vomiting, hyperglycemia and diarrhea. Of note, patient was recently discharged from the hospital on 10/03/24; she was admitted with strokelike symptoms which were thought to be as a result of hyperglycemia in the setting of uncontrolled, insulin-dependent DM type II. Stroke work-up was completely unremarkable. She was discharged home with [facility] services following that admission. C. difficile colitis Sepsis secondary to C. difficile Patient presented with multiple episode of diarrhea from home. History of recurrent C. difficile infection CT abdomen pelvis on admission concerning for diffuse colitis on admission; no free air or abscess. C. difficile toxin positive Patient was admitted and was started on oral vancomycin 500 mg every 6 hours along with IV Flagyl. Repeat CT abdomen/pelvis obtained on 10/10 showed progressive worsening of the pancolitis. ID was consulted, recommended the following: "C. diff colitis concern for developing toxic megacolon - Agree with Vancomycin 500 mg PO QID and Metronidazole 500 mg IV q8, please add Vancomycin 500 mg TX (Per Rectum) q8 to try to prevent progression. - Agree with Surgical consult and recommendation, if patient does not improve, recommend surgical intervention." General Surgery was consulted, recommended/stated the following: -continue conservative rx -no surgical intervention required GI was consulted, recommended/stated the following: "- Continue oral Vancomycin w/ an extended tapering course - Continue rectal Vancomycin - Continue IV Flagyl - Appreciate surgical input She should be placed on a prophylaxis course of oral Vancomycin while other courses of ABX are used - Follow up with Adry HICKS as an outpatient to discuss candidacy for Zinplava" Was on IV fluids Rectal tube removed on 10/15 Continue KUB daily PT/OT- recommending home with HH Follow up with ID, once more on 10/16 for specific discharge med recs and dates of completion of medications- messages sent, awaiting final recs for dispo Uncontrolled Insulin-Dependent DMII: Hgba1c of 10.3 Patient with known history of uncontrolled insulin-dependent DMII. Patient's outpatient insulin regimen is 44U of insulin degludec daily and 24U of insulin aspart TIDM. Started on Lantus/NovoLog. Pharmacy on board. Hyponatremia serum sodium down trended to 126 on October 08, 2023 Plasma-Lyte was discontinued Urine osm of 410 mosm/kg Serum sodium improved Continue IV fluids for now given diarrhea Continue to monitor Improved Prolonged QT Interval QTc prolonged at 534ms on presenting EKG. Holding home trazodone, duloxetine and meclizine. Repeat EKG from 10/09 shows improved QTc of 485 ms Continue to monitor on telemetry Hypomagnesemia Replete as needed Elevated Troponin Initial troponin 20.7 presenting EKG with no evidence of acute ST changes Likely demand ischemia ISO acute illness and dehydration Chronic HFpEF, Aortic Stenosis S/P TAVR, HTN: Previous ALMA from 05/2023 --> LVEF of 55 to 59%, no LV segmental wall motion abnormalities Continue metoprolol tartrate 50mg BID as per above, ASA 81mg daily and atorvastatin 40mg daily Plavix currently on hold for possible need for surgery. Diet: DMII or low fiber DVT Prophylaxis: SQ Heparin Code Status: FULL CODE PCP: Gregory Rausch MD DispositionPT/OT recommending home with home health Admission and Anticipated Discharge Date Admission Date: October 07, 2024 Subjective Pt was seen sitting up in bed Daughter at bedside. Daughter concerned about her not being able to care for herself at home, however pt wants to go home, refusing rehab. Worked with PT/OT yesterday who recommended home with home health services. Pt with continued bowel movements but denying any fevers, chills or night sweats Review of Systems Review of Systems: All systems reviewed & are unremarkable except as noted in Subjective Physical Exam Physical Exam: General: Alert, oriented. No acute distress HEENT: NC/AT CV: RRR Resp: Breath sounds clear bilaterally, no increased effort of breathing Abdomen: Soft, mildly tender Extremities: No edema in lower extremities bilaterally. : wilson in at time of exam Results & Data Results & Data Vital Signs (Past 12 Hours) Vital Signs Temp Pulse Resp BP BP Pulse Ox O2 Del Method 10/16/24 10:33 36.8 C 76 19 124/71 97 Room Air 10/16/24 00:28 36.7 C 72 16 156/73 H 95 Room Air (3) Sepsis Sepsis acute organ dysfunction status: unspecified Sepsis type: sepsis due to unspecified organism Qualified Code(s): A41.9 - Sepsis, unspecified organism
--- NOTE | 2024-10-16 18:09 | XRay Report ---
EXAM: Radiograph of the Abdomen 1 View INDICATION: C. difficile. TECHNIQUE: Frontal supine view of the abdomen/pelvis. COMPARISON: No relevant prior studies available. FINDINGS: Limitations: None. Gastrointestinal tract: There is moderate gaseous distention of the stomach. Small amounts of air noted throughout nondilated bowel loops. The descending colon contains some air and is relatively collapsed. Organs: Visualized organ shadows appear grossly normal. Bones/joints: No fracture, erosion or dislocation. Soft tissues: No abnormality noted. No radiopaque foreign body noted. IMPRESSION: Moderately dilated stomach. The bowel is otherwise difficult to assess without distention. ACT 112: Negative or not required by law. Electronically signed by Mariana Nowak 10-16-2024 6:09 PM
[2024-10-17 06:48] LABS: Basophils # (auto) 0.06 K/uL (0.00-0.20); Basophils % (auto) 0.3 %; Eosinophils # (auto) 0.23 K/uL (0.00-0.50); Eosinophils % (auto) 1.2 %; Hematocrit (blood only) 34.2 % (37.0-47.0); Hemoglobin 11.6 g/dl (12.0-16.0); Immature Granulocytes # (auto) 0.38 K/uL (0.01-0.20); Lymphocytes # (auto) 3.39 K/uL (1.20-3.40); Lymphocytes % (auto) 17.8 %; Mean Corpuscular Hemoglobin 27.4 pg (25.0-34.0); Mean Corpuscular Hgb Conc 33.9 g/dL (32.0-36.0); Mean Corpuscular Volume 80.7 fL (80.0-100.0); Mean Platelet Volume 10.5 fL (9.4-12.4); Monocytes # (auto) 0.72 K/uL (0.11-0.59); Monocytes % (auto) 3.8 %; Neutrophils # (auto) 14.22 K/uL (1.40-6.50); Neutrophils % (auto) 74.9 %; Platelet Count 155 K/uL (130-400); RDW Coefficient of Variation 15.1 % (11.5-14.5); RDW Standard Deviation 43.1 fL (36.4-46.3); Red Blood Count 4.24 M/uL (4.20-5.40)
[2024-10-17 07:05] LABS: Potassium 5.1 mmol/L (3.5-5.1)
[2024-10-17 07:06] LABS: Albumin Globulin Ratio 0.9 (0.9-2); Albumin Level 2.4 gm/dl (3.4-5.0); BUN Creatinine Ratio 11.7 (10-20); Bilirubin,Total 0.6 mg/dl (0.2-1.0); Calcium 8.1 mg/dl (8.6-10.3); Creatinine Clr Calc Pharmacy 49.8 ml/min; Globulin 2.8 gm/dl (2.5-4.0); Magnesium 1.5 mg/dl (1.7-2.4); Phosphorus 2.8 mg/dl (2.5-4.9); Total Protein 5.2 gm/dl (6.0-8.3)
[2024-10-17] MEDS: THIAMINE HCL 100 MG TAB PO SCH (09:06)
--- NOTE | 2024-10-17 09:37 | Pharmacy Report ---
Pharmacy Glycemic Short Note 2 - Date of Service October 17, 2024 - Glycemic Short BSG Results (Last 24 hours): 10/16/24 10/16/24 10/16/24 11:18 16:17 20:18 Glucose POC Glucose 195 H 230 H 178 H 10/17/24 10/17/24 06:12 07:35 Glucose 182 H POC Glucose 188 H OUTPATIENT ANTIDIABETIC REGIMEN: * Tresiba 44 units SC AM * Novolog 24 units SC AC * Ozempic 2 mg SC every Sunday HbA1c: * 10.3% (10/07/24) ASSESSMENT: 10/17/23 * Patient received a total of 100 units of insulin yesterday (35 units were basal and 65 units were bolus) * BSGs elevated most of the days yesterday-([phone]/dL). With the increase in total daily basal insulin yesterday (from 30units to 35 units total) I'm hoping that the BSGs are more in range today. BSG at lunch was 206mg/dL so will also tighten CR. * She is still being treated for C.diff and is on 1S + 20kcl/L at 80ml/hr. 10/15/24: * BSGs in goal range yesterday (10/14). Fasting BSG elevated at 211 today. * Patients diet was increased from liquids to full T2DM diet so patient may be eating more now * Will add Lantus morning coverage to help better cover patients increased food intake while decreasing the bedtime dose to aim for a total of 40 units/daily. * Pt remains on current C.diff tx 10/13/24: * Blood sugars have been labile over past several days with variable basal insulin doses * Hyperglycemia noted yesterday, but episode of hypoglycemia this morning (blood sugar of 68 mg/dL) * Despite hyperglycemia yesterday, will slightly loosen Novolog and hold off on basal for now due to hypoglycemia this AM * Remains on clear liquid/T2DM diet * Ongoing treatment for C. difficile colitis with vancomycin PO + enema and metronidazole IV 10/10 * Jovita received 113 units of insulin yesterday (65 were basal) * Fasting BSG this AM acceptable, reported nausea and vomiting this AM, diet changed to NPO with N/V and C. Diff diarrhea. Will reduce basal insulin by approximately 50% due to NPO status. Will transition back to HS administration per CDE recommendations. * No changes to NovoLog at this time, correction factor appears adequate. * She remains on IV Flagyl and PO Vanc 10/08 * 63 yo F admitted on 10/07/24 secondary to nausea/vomiting from hyperglycemia. Pharmacy has been consulted to assist with inpatient glycemic management. Patient is a Type 2 diabetic as an outpatient. Please refer to outpatient regimen and most recent HbA1c above. * Patient well known to pharmacy glycemic service. Was recently admitted to [facility] from 10/01/24 - 10/03/24. * BSG was above 400 mg/dL upon arrival. Received two separate 10 unit IV insulin boluses yesterday afternoon. BSG decreased to 325 mg/dL. * Started on subcutaneous basal-bolus insulin last evening based on previous admission data. Received 55 units of basal and 28 units bolus. HS and midnight checks were 319 and 169 mg/dL. * Fasting BSG was 188 mg/dL this AM. Patient being treated for C. diff infection with PO vanc and IV metronidazole. Ordered a T2DM diet but not eating much per RN. Had 2 romanian ices for lunch. * Will continue with previously ordered basal dose for now. Will attempt to transition this to AM dosing to match outpatient regimen. Give a dose around noon today and then can start with AM tomorrow. * Did tighten Novolog slightly this morning. PLAN FOR INPATIENT GLYCEMIC CONTROL: * Basal insulin - * Lantus 10-15-20 units SC HS (see EHR for details) * Lantus 20 units in the mornings * Bolus insulin - loosen * NovoLog per scale ACHS or Q6hrs while NPO * Goal Range: Low 110 mg/dL - High 140 mg/dL * Correction Factor: 12 mg/dL/unit * Nutritional / Prandial insulin per carb ratio of 1 unit per 2.5 grams CHO consumed
[2024-10-17] MEDS: MAGNESIUM SULFATE / D5W 1 GM/100 ML BAG IV SCH (10:19)
--- NOTE | 2024-10-17 13:57 | Hospitalist Progress Note ---
Date of Service October 17, 2024 Assessment & Plan (1) Acute hyperglycemia: (2) Insulin dependent type 2 diabetes mellitus: (3) Sepsis: (4) Acute colitis: (5) Hypertensive urgency: (6) Abnormal urinalysis: (7) Prolonged QT interval: (8) Hypomagnesemia: (9) Elevated troponin: Plan Jovita Rose is a 63y/o F with PMHx significant for aortic stenosis s/p TAVR [2017], CAD s/p drug-eluting stent to LAD, HFpEF, DM type II, hypothyroidism, HLD, liver cirrhosis 2/2 LEYVA, HTN, questionable paroxysmal atrial fibrillation, DANYELLE intolerant to CPAP, CKD stage III, benign paroxysmal positional vertigo 2/2 bilateral vestibular disorder, schizoaffective disorder, history of breast cancer s/p bilateral mastectomies + chemoradiation [2007], history of colon cancer s/p colon resection, history of GI bleed, history of C. difficile infection and splenic infarcts who presented to the ED via EMS on 10/07/24 with multiple complaints including nausea/vomiting, hyperglycemia and diarrhea. Of note, patient was recently discharged from the hospital on 10/03/24; she was admitted with strokelike symptoms which were thought to be as a result of hyperglycemia in the setting of uncontrolled, insulin-dependent DM type II. Stroke work-up was completely unremarkable. She was discharged home with [facility] services following that admission. C. difficile colitis Sepsis secondary to C. difficile Patient presented with multiple episode of diarrhea from home. History of recurrent C. difficile infection CT abdomen pelvis on admission concerning for diffuse colitis on admission; no free air or abscess. C. difficile toxin positive Patient was admitted and was started on oral vancomycin 500 mg every 6 hours along with IV Flagyl. Repeat CT abdomen/pelvis obtained on 10/10 showed progressive worsening of the pancolitis. ID was consulted, recommended the following: "C. diff colitis concern for developing toxic megacolon - Agree with Vancomycin 500 mg PO QID and Metronidazole 500 mg IV q8, please add Vancomycin 500 mg WI (Per Rectum) q8 to try to prevent progression. - Agree with Surgical consult and recommendation, if patient does not improve, recommend surgical intervention." General Surgery was consulted, recommended/stated the following: -continue conservative rx -no surgical intervention required GI was consulted, recommended/stated the following: "- Continue oral Vancomycin w/ an extended tapering course - Continue rectal Vancomycin - Continue IV Flagyl - Appreciate surgical input She should be placed on a prophylaxis course of oral Vancomycin while other courses of ABX are used - Follow up with [facility] as an outpatient to discuss candidacy for Zinplava" Was on IV fluids Rectal tube removed on 10/15 Continue KUB daily PT/OT- recommending home with HH Case discussed with Infectious Disease, Dr Shailesh España on 10/16/24 who recommended the following for discharge: "routine vanco taper: 125mg qid x 2 weeks, then 125mg bid x 1 week, then 125mg qd x 1 week, then 125mg qod x 2 weeks" Pt still with copious BMs, area red and chaffed. Wilson still in place. Lives alone, refusing rehab/snf, plan to discharge home with HH once bowel movements are better controlled. Uncontrolled Insulin-Dependent DMII: Hgba1c of 10.3 Patient with known history of uncontrolled insulin-dependent DMII. Patient's outpatient insulin regimen is 44U of insulin degludec daily and 24U of insulin aspart TIDM. Started on Lantus/NovoLog. Pharmacy on board. Hyponatremia serum sodium down trended to 126 on October 08, 2023 Plasma-Lyte was discontinued Urine osm of 410 mosm/kg Serum sodium improved Continue IV fluids for now given diarrhea Continue to monitor Improved Prolonged QT Interval QTc prolonged at 534ms on presenting EKG. Holding home trazodone, duloxetine and meclizine. Repeat EKG from 10/09 shows improved QTc of 485 ms Continue to monitor on telemetry Hypomagnesemia Replete as needed Elevated Troponin Initial troponin 20.7 presenting EKG with no evidence of acute ST changes Likely demand ischemia ISO acute illness and dehydration Chronic HFpEF, Aortic Stenosis S/P TAVR, HTN: Previous ALMA from 05/2023 --> LVEF of 55 to 59%, no LV segmental wall motion abnormalities Continue metoprolol tartrate 50mg BID as per above, ASA 81mg daily and atorvastatin 40mg daily Plavix resumed Diet: DMII or low fiber DVT Prophylaxis: SQ Heparin Code Status: FULL CODE PCP: Gregory Rausch MD DispositionPT/OT recommending home with home health Admission and Anticipated Discharge Date Admission Date: October 07, 2024 Subjective pt was seen in the AM with nursing at bedside She wants to go home however still having multiple BMs a day Wilson in as area red and chaffed Pt lives alone, and will be going home with HH, refusing rehab or SNF Both daughters Joivta and Charlene called and updated Review of Systems Review of Systems: All systems reviewed & are unremarkable except as noted in Subjective Physical Exam Physical Exam: General: Alert, oriented. No acute distress HEENT: NC/AT CV: RRR Resp: Breath sounds clear bilaterally, no increased effort of breathing Abdomen: Soft, mildly tender Extremities: No edema in lower extremities bilaterally. : wilson in at time of exam Results & Data Results & Data Vital Signs (Past 12 Hours) Vital Signs Temp Pulse Resp BP Pulse Ox O2 Del Method 10/17/24 11:09 36.6 C 69 133/75 96 Room Air 10/17/24 10:25 Room Air 10/17/24 07:37 36.9 C 81 18 152/81 H 96 Room Air 10/17/24 02:57 36.9 C 76 18 144/80 H Room Air Diagnostic Findings Chest X-Ray 10/07/24 12:41 XR chest 1V portable CLINICAL HISTORY: weak TECHNIQUE: Single frontal radiograph of the chest was obtained. Comparison: Comparison is made to chest radiograph 10/01/2044 FINDINGS: Median sternotomy wires are unchanged. Calcified aortic knob is seen. Aortic valvular prosthesis is again seen. The lungs are clear. No evidence of pleural effusion or pneumothorax. IMPRESSION: No acute chest disease. ACT 112: Negative or not required by law. Electronically signed by: Wilmer Saunders M.D. 10/07/2024 1:03 PM Abdomen/Pelvis CT 10/07/24 15:19 INDICATION: Diarrhea. COMPARISON: CT from 06/05/2024. TECHNIQUE: Axial CT images of the abdomen and pelvis were obtained without IV contrast administration. Coronal and sagittal reformations were reviewed. FINDINGS: Visualized lung bases appear unremarkable. Small left hepatic lobe cyst again noted. The gallbladder, spleen, pancreas and left adrenal gland appear unremarkable. Right adrenal gland lipid rich adenoma appears unchanged. Renal cysts again noted, no significant change. Nonobstructing 4 mm right renal calculus. Diffuse colonic wall thickening with adjacent inflammation. No evidence of bowel obstruction/appendicitis. No free air or abscess. No free air. No drainable fluid collection. The urinary bladder appears unremarkable. Phleboliths in the pelvis. No acute osseous abnormality evident. IMPRESSION: 1. Findings concerning for diffuse colitis. No free air or abscess. 2. Nonobstructing 2 mm right renal calculus. Electronically signed by Dada Ricks 10-07-2024 5:[address] 10/08/24 01:09 EXAM: CT head/brain wo con CLINICAL HISTORY: AMS, Thrombocytopenia. TECHNIQUE: An axial non-contrast CT scan of the brain was performed from the skull base to the high parietal region. One of the following dose reduction techniques were utilized for this exam: Automated exposure control, adjustment of the mA and/or kV according to patient size, and use of iterative reconstruction. COMPARISON: CT head dated 10/02/2024 FINDINGS: Brain Parenchyma: A few chronic lacunar infarcts are identified in both basal ganglia and periventricular region Normal attenuation cerebellum, and brainstem. No evidence of acute infarct, hemorrhage, or mass effect. Mild diffuse hypodensity is identified in periventricular deep white matter Atherosclerotic changes seen in both internal carotid and vertebral arteries Ventricular System: Age-appropriate mild dilatation of the ventricular system seen No evidence of hydrocephalus Subarachnoid Spaces: Mild widening of sulci is identified No evidence of subarachnoid hemorrhage or extra-axial fluid collections. Cerebellum and Brainstem: Normal size and density No masses, lesions, or areas of abnormal density. Orbits: Normal appearance of the globes, optic nerves, and extraocular muscles. No evidence of orbital masses or abnormal density Sinuses: Clear paranasal sinuses. No evidence of sinusitis or mucosal thickening. Mild deviation of the nasal septum towards right side Mastoid Air Cells: Minimal opacification of both mastoid air cells Skull: Normal skull morphology. Hyperostosis frontalis interna seen IMPRESSION: 1. No evidence of intracranial hemorrhage, gross territorial infarction or mass-effect. In view of patient's history MRI brain may be obtained for further evaluation 2. Few chronic lacunar infarcts are identified in both basal ganglia and periventricular region, with no interval change 3. Age-appropriate volume loss in brain parenchyma and mild periventricular deep white matter ischemic changes, with no significant interval changes 4. Interval stable minimal bilateral mastoiditis 5. The previously seen hyperdense dural sinuses are not visualized in the current examination 6. Other significant interval changes Electronically signed by Beckie Rome 10-08-2024 02:23 AM Abdomen/Pelvis CT 10/10/24 08:[address] WITH IV CONTRAST CT DOSE: 1187.51 mGy.cm HISTORY: Acute onset abdominal pain with possible colitis Follow up on progression of colitis TECHNIQUE: Multiaxial CT images of the abdomen and pelvis were performed following the IV administration of 90 cc of Optiray, A dose lowering technique was utilized adhering to the principles of ALARA. COMPARISON STUDY: 10/07/2024, 06/05/2024 FINDINGS: Partially imaged left breast implant with pericapsular soft tissue thickening and small pericapsular collection which is similar to prior. Clear lung bases. Cardiomegaly with retained epicardial leads. No pneumatosis or pneumoperitoneum. The spleen is enlarged, 16 cm. Subcentimeter ill-defined hypodense focus of the mid spleen is unchanged and likely benign. Unremarkable pancreas and left adrenal gland. Right adrenal myelolipoma, 1.6 cm. There are a few small cysts noted within the liver. Mild marginal nodularity of the liver may represent early cirrhosis. Patency of the hepatic and portal veins. Unremarkable gallbladder. Right renal cysts are noted. There is a 2.6 cm exophytic mildly hyperdense l esion of the right kidney which is unchanged and favors a complex cyst. 5 mm nonobstructing calculus of the inferior pole right kidney. No hydronephrosis. Decompressed urinary bladder with Wilson catheter in place. Hysterectomy. Atherosclerosis of the aorta without aneurysm. Mild distal esophageal wall thickening with small hiatal hernia. There is progressively worsened circumferential wall thickening of the rectum and majority of the large bowel with adjacent pericolonic and perirectal inflammatory stranding. Progressive small amount of abdominal pelvic ascites. Fluid-filled loops of small bowel are noted with a few loops of small bowel wall thickening also present. A normal appendix is not visualized. Previously noted cystic structure adjacent to the cecum is obscured by the ascites. No acute fracture. Mild generalized body wall edema. IMPRESSION: 1. Progressive worsening of the likely infectious or inflammatory pancolitis with probable associated mild enteritis. 2. Small amount of abdominopelvic ascites has progressed from 10/07/2024. 3. No bowel obstruction or pneumoperitoneum. 4. Right nephrolithiasis without hydronephrosis. ACT 112: Negative or not required by law. The above report was generated using voice recognition software. It may contain grammatical, syntax or spelling errors. Electronically signed by: Rafa Leslie M.D. 10/10/2024 11:43 AM KUB X-Ray 10/11/24 06:00 EXAM: Radiograph of the Abdomen 1 View INDICATION: Follow-up colitis TECHNIQUE: Frontal supine view of the abdomen/pelvis. COMPARISON: CT abdomen 10/07/2024 FINDINGS: Limitations: None. Gastrointestinal tract: Comparing the plain radiographs to the CT, there is probable stable colitis. Slightly more colonic air noted. No distention. Organs: Visualized organ shadows appear grossly normal. Bones/joints: No fracture, erosion or dislocation. Soft tissues: No abnormality noted. No radiopaque foreign body noted. IMPRESSION: Allowing for limitations of comparing different modalities, colitis is grossly stable. There is slightly more air in the colon without distention. ACT 112: Negative or not required by law. Electronically signed by Mariana Nowak 10-11-2024 12:05 PM KUB X-Ray 10/12/24 06:00 EXAM: XR KUB/Abdomen 1 view CLINICAL HISTORY: Follow up on colitis portable TECHNIQUE: X-ray image of the abdomen obtained in 1 frontal projection. COMPARISON: Prior X-ray dated 10/11/2024 for comparison. FINDINGS: Gas Pattern: Few gas filled bowel loops in the lower abdomen. No evidence of bowel obstruction or distention. Soft Tissues: Soft tissues of the abdomen appear normal without evidence of masses or calcifications. Liver, spleen, and kidneys are of normal size and position. Spondylotic changes in thoracolumbar spine. IMPRESSION: 1. Few gas filled bowel loops in the lower abdomen, new finding. 2. No evidence of bowel obstruction or distention. Electronically signed by Beckie Rome 10-12-2024 09:05 AM KUB X-Ray 10/13/24 08:00 KUB CLINICAL HISTORY: Follow up on colitis COMPARISON STUDY: CT of the abdomen and pelvis October 10, 2004. KUB October 12, 2024. FINDINGS: Mild gaseous distention of small and large bowel has slightly increased since KUB of October 12, 2024. Ahaustral appearance of portions of the colon represent underlying colitis, as shown on prior CT. Sensitivity for detection of free air is diminished on supine exam but none is identified. No urinary calculi are identified. IMPRESSION: 1. Mild increase in gaseous distention of the colon with radiographic evidence for colitis, as shown on CT. 2. Several prominent gas-filled loops of small bowel without convincing evidence for a bowel obstruction. The findings may represent an associated ileus. ACT 112: Negative or not required by law. Electronically signed by: Fabian Flores M.D. 10/13/2024 9:00 AM KUB X-Ray 10/14/24 08:00 EXAM: XR KUB/Abdomen 1 view CLINICAL HISTORY: Follow up on colitis portable. TECHNIQUE: X-ray image of the abdomen obtained in 1 frontal projection COMPARISON: 10/12/2024 X-ray Abdomen. FINDINGS: Gas Pattern: Bowel loops with air in the lower abdomen without significant changes from the previous study. No evidence of bowel obstruction or distention. Soft Tissues: Soft tissues of the abdomen appear normal without evidence of masses. The liver, spleen, and kidneys are of normal size and position. Calcification in the right minor pelvis in probable relation to phlebolith. Spondylotic changes in the thoracolumbar spine. IMPRESSION: 1. No evidence of bowel obstruction or distention. 2. No interval changes. Electronically signed by Beckie Rome 10-14-2024 07:55 AM KUB X-Ray 10/15/24 09:39 KUB HISTORY: Cdiff COMPARISON STUDY: 10/14/2024 through 10/10/2024 FINDINGS: There is mild gaseous gastric distention. There is persistent colonic wall thickening, better seen on the prior CT. There is no evidence of bowel obstruction. No gross free air. IMPRESSION: Persistent colonic wall thickening with no bowel obstruction seen. ACT 112: Negative or not required by law. The above report was generated using voice recognition software. It may contain grammatical, syntax or spelling errors. Electronically signed by: Kal Quintana M.D. 10/15/2024 10:10 AM KUB X-Ray 10/16/24 17:45 EXAM: Radiograph of the Abdomen 1 View INDICATION: C. difficile. TECHNIQUE: Frontal supine view of the abdomen/pelvis. COMPARISON: No relevant prior studies available. FINDINGS: Limitations: None. Gastrointestinal tract: There is moderate gaseous distention of the stomach. Small amounts of air noted throughout nondilated bowel loops. The descending colon contains some air and is relatively collapsed. Organs: Visualized organ shadows appear grossly normal. Bones/joints: No fracture, erosion or dislocation. Soft tissues: No abnormality noted. No radiopaque foreign body noted. IMPRESSION: Moderately dilated stomach. The bowel is otherwise difficult to assess without distention. ACT 112: Negative or not required by law. Electronically signed by Mariana Nowak 10-16-2024 6:09 PM (3) Sepsis Sepsis acute organ dysfunction status: unspecified Sepsis type: sepsis due to unspecified organism Qualified Code(s): A41.9 - Sepsis, unspecified organism
--- NOTE | 2024-10-17 19:10 | XRay Report ---
EXAM: Radiograph of the Abdomen 1 View INDICATION: C. difficile. TECHNIQUE: Frontal supine view of the abdomen/pelvis. COMPARISON: No relevant prior studies available. FINDINGS: Limitations: None. Gastrointestinal tract: Air scattered throughout non-dilated intestinal loops. Organs: Visualized organ shadows appear grossly normal. Bones/joints: No fracture, erosion or dislocation. Soft tissues: There is soft tissue edema of the left flank. There is edema of the transverse colon which is mildly dilated with air. Small amounts of stool noted in the colonic flexures. There is a small amount of air in the rectum. IMPRESSION: 1. Transverse colonic edema. Bowel loops are otherwise poorly assessed due to lack of aeration. 2. There is soft tissue edema of the left flank. ACT 112: Negative or not required by law. Electronically signed by Mariana Nowak 10-17-2024 7:00 PM
[2024-10-18 06:42] LABS: Alanine Aminotransferase 16 U/L (7-52); Albumin Globulin Ratio 0.9 (0.9-2); Albumin Level 2.3 gm/dl (3.4-5.0); Alkaline Phosphatase 98 U/L (34-104); BUN Creatinine Ratio 12.6 (10-20); Bilirubin,Total 0.6 mg/dl (0.2-1.0); Blood Urea Nitrogen 12 mg/dl (6-23); Carbon Dioxide 20 mmol/L (21-32); Chloride 107 mmol/L (98-107); Creatinine Clr Calc Pharmacy 54.3 ml/min; Globulin 2.7 gm/dl (2.5-4.0); Glucose 136 mg/dl (70-99(Fasting))
[2024-10-18 07:07] LABS: Basophils # (auto) 0.03 K/uL (0.00-0.20); Basophils % (auto) 0.2 %; Eosinophils # (auto) 0.19 K/uL (0.00-0.50); Eosinophils % (auto) 1.3 %; Hematocrit (blood only) 30.4 % (37.0-47.0); Hemoglobin 10.3 g/dl (12.0-16.0); Immature Granulocytes # (auto) 0.23 K/uL (0.01-0.20); Immature Granulocytes % (auto) 1.5 %; Lymphocytes # (auto) 3.13 K/uL (1.20-3.40); Mean Corpuscular Hemoglobin 27.8 pg (25.0-34.0); Mean Corpuscular Hgb Conc 33.9 g/dL (32.0-36.0); Mean Corpuscular Volume 81.9 fL (80.0-100.0); Mean Platelet Volume 10.6 fL (9.4-12.4); Monocytes # (auto) 0.83 K/uL (0.11-0.59); Monocytes % (auto) 5.6 %; Neutrophils # (auto) 10.47 K/uL (1.40-6.50); Neutrophils % (auto) 70.4 %; Platelet Count 153 K/uL (130-400); RDW Coefficient of Variation 14.8 % (11.5-14.5); RDW Standard Deviation 42.9 fL (36.4-46.3); Red Blood Count 3.71 M/uL (4.20-5.40); White Blood Count 14.88 K/ul (4.8-10.8)
[2024-10-18 07:26] LABS: Magnesium 1.6 mg/dl (1.7-2.4); Potassium 4.3 mmol/L (3.5-5.1)
[2024-10-18] MEDS: MAGNESIUM SULFATE / D5W 1 GM/100 ML BAG IV SCH (11:24)
--- NOTE | 2024-10-18 14:01 | Hospitalist Progress Note ---
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 difficile infection and splenic infarcts who presented to the ED via EMS on 10/07/24 with multiple complaints including nausea/vomiting, hyperglycemia and diarrhea. Of note, patient was recently discharged from the hospital on 10/03/24; she was admitted with strokelike symptoms which were thought to be as a result of hyperglycemia in the setting of uncontrolled, insulin-dependent DM type II. Stroke work-up was completely unremarkable. She was discharged home with [facility] services following that admission. C. difficile colitis Sepsis secondary to C. difficile Patient presented with multiple episode of diarrhea from home. History of recurrent C. difficile infection CT abdomen pelvis on admission concerning for diffuse colitis on admission; no free air or abscess. C. difficile toxin positive Patient was admitted and was started on oral vancomycin 500 mg every 6 hours along with IV Flagyl. Repeat CT abdomen/pelvis obtained on 10/10 showed progressive worsening of the pancolitis. ID was consulted, recommended the following: "C. diff colitis concern for developing toxic megacolon - Agree with Vancomycin 500 mg PO QID and Metronidazole 500 mg IV q8, please add Vancomycin 500 mg [place] (Per Rectum) q8 to try to prevent progression. - Agree with Surgical consult and recommendation, if patient does not improve, recommend surgical intervention." General Surgery was consulted, recommended/stated the following: -continue conservative rx -no surgical intervention required GI was consulted, recommended/stated the following: "- Continue oral Vancomycin w/ an extended tapering course - Continue rectal Vancomycin - Continue IV Flagyl - Appreciate surgical input She should be placed on a prophylaxis course of oral Vancomycin while other courses of ABX are used - Follow up with [facility] as an outpatient to discuss candidacy for Zinplava" Was on IV fluids Rectal tube removed on 10/15 Continue KUB daily PT/OT- recommending home with HH Case discussed with Infectious Disease, Dr Shailesh España on 10/16/24 who recommended the following for discharge: "routine vanco taper: 125mg qid x 2 weeks, then 125mg bid x 1 week, then 125mg qd x 1 week, then 125mg qod x 2 weeks" Pt still with copious BMs, area red and chaffed. Wilson still in place. Lives alone, refusing rehab/snf, plan to discharge home with HH once bowel movements are better controlled. Improving Uncontrolled Insulin-Dependent DMII: Hgba1c of 10.3 Patient with known history of uncontrolled insulin-dependent DMII. Patient's outpatient insulin regimen is 44U of insulin degludec daily and 24U of insulin aspart TIDM. Started on Lantus/NovoLog. Pharmacy on board. Hyponatremia serum sodium down trended to 126 on October 08, 2023 Plasma-Lyte was discontinued Urine osm of 410 mosm/kg Serum sodium improved Continue IV fluids for now given diarrhea Continue to monitor Improved Prolonged QT Interval QTc prolonged at 534ms on presenting EKG. Holding home trazodone, duloxetine and meclizine. Repeat EKG from 10/09 shows improved QTc of 485 ms Continue to monitor on telemetry Hypomagnesemia Replete as needed Elevated Troponin Initial troponin 20.7 presenting EKG with no evidence of acute ST changes Likely demand ischemia ISO acute illness and dehydration Chronic HFpEF, Aortic Stenosis S/P TAVR, HTN: Previous ALMA from 05/2023 --> LVEF of 55 to 59%, no LV segmental wall motion abnormalities Continue metoprolol tartrate 50mg BID as per above, ASA 81mg daily and atorvastatin 40mg daily Plavix resumed Diet: DMII or low fiber DVT Prophylaxis: SQ Heparin Code Status: FULL CODE PCP: Gregory Rausch MD DispositionPT/OT recommending home with home health Admission and Anticipated Discharge Date Admission Date: October 07, 2024 Subjective pt was seen in the AM with nursing at bedside she has been getting up to go to the bathroom Still with multiple bowel movements Review of Systems Review of Systems: All systems reviewed & are unremarkable except as noted in Subjective Physical Exam Physical Exam: General: Alert, oriented. No acute distress HEENT: NC/AT CV: RRR Resp: Breath sounds clear bilaterally, no increased effort of breathing Abdomen: Soft, mildly tender Extremities: No edema in lower extremities bilaterally. : wilson in at time of exam Results & Data Results & Data Vital Signs (Past 12 Hours) Vital Signs Temp Pulse Pulse Resp BP Pulse Ox O2 Del Method 10/18/24 11:34 36.9 C 72 18 134/69 94 Room Air 10/18/24 08:00 Room Air 10/18/24 08:00 68 10/18/24 07:36 36.9 C 66 18 135/71 96 Room Air 10/18/24 02:49 36.4 C L 67 16 152/80 H 98 Room Air (3) Sepsis Sepsis acute organ dysfunction status: unspecified Sepsis type: sepsis due to unspecified organism Qualified Code(s): A41.9 - Sepsis, unspecified organism
[2024-10-19] MEDS: LANTUS PER UNIT CHARGE SC SCH ×2 (08:55→22:21)
[2024-10-19 09:09] LABS: Basophils # (auto) 0.04 K/uL (0.00-0.20); Basophils % (auto) 0.4 %; Eosinophils # (auto) 0.13 K/uL (0.00-0.50); Eosinophils % (auto) 1.2 %; Hematocrit (blood only) 31.5 % (37.0-47.0); Hemoglobin 10.6 g/dl (12.0-16.0); Immature Granulocytes # (auto) 0.11 K/uL (0.01-0.20); Lymphocytes % (auto) 26.1 %; Mean Corpuscular Hemoglobin 27.8 pg (25.0-34.0); Mean Corpuscular Hgb Conc 33.7 g/dL (32.0-36.0); Mean Corpuscular Volume 82.7 fL (80.0-100.0); Mean Platelet Volume 10.8 fL (9.4-12.4); Monocytes # (auto) 0.55 K/uL (0.11-0.59); Monocytes % (auto) 5.1 %; Neutrophils # (auto) 7.09 K/uL (1.40-6.50); Neutrophils % (auto) 66.2 %; Platelet Count 167 K/uL (130-400); RDW Coefficient of Variation 15.2 % (11.5-14.5); RDW Standard Deviation 43.7 fL (36.4-46.3); Red Blood Count 3.81 M/uL (4.20-5.40); White Blood Count 10.72 K/ul (4.8-10.8)
[2024-10-19 09:32] LABS: Albumin Globulin Ratio 0.8 (0.9-2); Albumin Level 2.6 gm/dl (3.4-5.0); BUN Creatinine Ratio 15.4 (10-20); Bilirubin,Total 0.5 mg/dl (0.2-1.0); Calcium 8.6 mg/dl (8.6-10.3); Creatinine Clr Calc Pharmacy 55.8 ml/min; Globulin 3.2 gm/dl (2.5-4.0); Magnesium 1.5 mg/dl (1.7-2.4); Phosphorus 3.1 mg/dl (2.5-4.9); Potassium 4.1 mmol/L (3.5-5.1); Total Protein 5.8 gm/dl (6.0-8.3)
--- NOTE | 2024-10-19 13:56 | Hospitalist Progress Note ---
Date of Service October 19, 2024 Assessment & Plan (1) Acute hyperglycemia: (2) Insulin dependent type 2 diabetes mellitus: (3) Sepsis: (4) Acute colitis: (5) Hypertensive urgency: (6) Abnormal urinalysis: (7) Prolonged QT interval: (8) Hypomagnesemia: (9) Elevated troponin: Plan Jovita Rose is a 63y/o F with PMHx significant for aortic stenosis s/p TAVR [2017], CAD s/p drug-eluting stent to LAD, HFpEF, DM type II, hypothyroidism, HLD, liver cirrhosis 2/2 LEYVA, HTN, questionable paroxysmal atrial fibrillation, DANYELLE intolerant to CPAP, CKD stage III, benign paroxysmal positional vertigo 2/2 bilateral vestibular disorder, schizoaffective disorder, history of breast cancer s/p bilateral mastectomies + chemoradiation [2007], history of colon cancer s/p colon resection, history of GI bleed, history of C. difficile infection and splenic infarcts who presented to the ED via EMS on 10/07/24 with multiple complaints including nausea/vomiting, hyperglycemia and diarrhea. Of note, patient was recently discharged from the hospital on 10/03/24; she was admitted with strokelike symptoms which were thought to be as a result of hyperglycemia in the setting of uncontrolled, insulin-dependent DM type II. Stroke work-up was completely unremarkable. She was discharged home with [facility] services following that admission. C. difficile colitis Sepsis secondary to C. difficile Patient presented with multiple episode of diarrhea from home. History of recurrent C. difficile infection CT abdomen pelvis on admission concerning for diffuse colitis on admission; no free air or abscess. C. difficile toxin positive Patient was admitted and was started on oral vancomycin 500 mg every 6 hours along with IV Flagyl. Repeat CT abdomen/pelvis obtained on 10/10 showed progressive worsening of the pancolitis. ID was consulted, recommended the following: "C. diff colitis concern for developing toxic megacolon - Agree with Vancomycin 500 mg PO QID and Metronidazole 500 mg IV q8, please add Vancomycin 500 mg [place] (Per Rectum) q8 to try to prevent progression. - Agree with Surgical consult and recommendation, if patient does not improve, recommend surgical intervention." General Surgery was consulted, recommended/stated the following: -continue conservative rx -no surgical intervention required GI was consulted, recommended/stated the following: "- Continue oral Vancomycin w/ an extended tapering course - Continue rectal Vancomycin - Continue IV Flagyl - Appreciate surgical input She should be placed on a prophylaxis course of oral Vancomycin while other courses of ABX are used - Follow up with [facility] as an outpatient to discuss candidacy for Zinplava" Was on IV fluids Rectal tube removed on 10/15 Continue KUB daily PT/OT- recommending home with HH Case discussed with Infectious Disease, Dr Shailesh España on 10/16/24 who recommended the following for discharge: "routine vanco taper: 125mg qid x 2 weeks, then 125mg bid x 1 week, then 125mg qd x 1 week, then 125mg qod x 2 weeks" Pt still with copious BMs, area red and chaffed. Wilson still in place. Lives alone, refusing rehab/snf, plan to discharge home with HH once bowel movements are better controlled. Improving Uncontrolled Insulin-Dependent DMII: Hgba1c of 10.3 Patient with known history of uncontrolled insulin-dependent DMII. Patient's outpatient insulin regimen is 44U of insulin degludec daily and 24U of insulin aspart TIDM. Started on Lantus/NovoLog. Pharmacy on board. Hyponatremia serum sodium down trended to 126 on October 08, 2023 Plasma-Lyte was discontinued Urine osm of 410 mosm/kg Serum sodium improved Continue IV fluids for now given diarrhea Continue to monitor Improved Prolonged QT Interval QTc prolonged at 534ms on presenting EKG. Holding home trazodone, duloxetine and meclizine. Repeat EKG from 10/09 shows improved QTc of 485 ms Continue to monitor on telemetry Hypomagnesemia Replete as needed Elevated Troponin Initial troponin 20.7 presenting EKG with no evidence of acute ST changes Likely demand ischemia ISO acute illness and dehydration Chronic HFpEF, Aortic Stenosis S/P TAVR, HTN: Previous ALMA from 05/2023 --> LVEF of 55 to 59%, no LV segmental wall motion abnormalities Continue metoprolol tartrate 50mg BID as per above, ASA 81mg daily and atorvastatin 40mg daily Plavix resumed Diet: DMII or low fiber DVT Prophylaxis: SQ Heparin Code Status: FULL CODE PCP: Gregory Rausch MD DispositionPT/OT recommending home with home health Admission and Anticipated Discharge Date Admission Date: October 07, 2024 Subjective pt was seen in the AM per nursing, still having many BMs though less incontinent Pt has been making it to the bathroom for the most part Still irritated in the area Review of Systems Review of Systems: All systems reviewed & are unremarkable except as noted in Subjective Physical Exam Physical Exam: General: Alert, oriented. No acute distress HEENT: NC/AT CV: RRR Resp: Breath sounds clear bilaterally, no increased effort of breathing Abdomen: Soft, mildly tender Extremities: No edema in lower extremities bilaterally. : wilson in at time of exam Results & Data Results & Data Vital Signs (Past 12 Hours) Vital Signs Temp Pulse Pulse Resp BP Pulse Ox O2 Del Method 10/19/24 11:42 36.9 C 69 16 133/70 97 Room Air 10/19/24 08:11 36.7 C 68 16 128/69 97 Room Air 10/19/24 04:13 68 10/19/24 03:28 36.6 C 70 16 145/74 H 95 Room Air (3) Sepsis Sepsis acute organ dysfunction status: unspecified Sepsis type: sepsis due to unspecified organism Qualified Code(s): A41.9 - Sepsis, unspecified organism
[2024-10-19] MEDS: MAGNESIUM SULFATE / D5W 1 GM/100 ML BAG IV SCH (18:22)
[2024-10-20 07:16] LABS: Basophils # (auto) 0.05 K/uL (0.00-0.20); Basophils % (auto) 0.5 %; Eosinophils # (auto) 0.11 K/uL (0.00-0.50); Eosinophils % (auto) 1.1 %; Hematocrit (blood only) 29.4 % (37.0-47.0); Hemoglobin 9.9 g/dl (12.0-16.0); Immature Granulocytes # (auto) 0.08 K/uL (0.01-0.20); Immature Granulocytes % (auto) 0.8 %; Lymphocytes # (auto) 3.05 K/uL (1.20-3.40); Lymphocytes % (auto) 31.3 %; Mean Corpuscular Hgb Conc 33.7 g/dL (32.0-36.0); Mean Corpuscular Volume 83.1 fL (80.0-100.0); Mean Platelet Volume 10.3 fL (9.4-12.4); Monocytes # (auto) 0.61 K/uL (0.11-0.59); Monocytes % (auto) 6.3 %; Neutrophils # (auto) 5.86 K/uL (1.40-6.50); Platelet Count 170 K/uL (130-400); RDW Coefficient of Variation 15.3 % (11.5-14.5); RDW Standard Deviation 44.2 fL (36.4-46.3); Red Blood Count 3.54 M/uL (4.20-5.40); White Blood Count 9.76 K/ul (4.8-10.8)
[2024-10-20 08:31] LABS: Albumin Level 2.6 gm/dl (3.4-5.0); Bilirubin,Total 0.4 mg/dl (0.2-1.0); Calcium 8.9 mg/dl (8.6-10.3); Magnesium 1.8 mg/dl (1.7-2.4); Potassium 4.8 mmol/L (3.5-5.1)
[2024-10-20 08:37] LABS: Albumin Globulin Ratio 0.9 (0.9-2); BUN Creatinine Ratio 11.9 (10-20); Creatinine Clr Calc Pharmacy 41.6 ml/min; Phosphorus 3.8 mg/dl (2.5-4.9); Total Protein 5.6 gm/dl (6.0-8.3)
[2024-10-20] MEDS: LANTUS PER UNIT CHARGE SC SCH ×2 (09:07→21:33)
--- NOTE | 2024-10-20 10:16 | Pharmacy Report ---
Pharmacy Glycemic Short Note 2 - Date of Service October 20, 2024 - Glycemic Short BSG Results (Last 24 hours): 10/19/24 10/19/24 10/19/24 11:34 14:51 14:59 Glucose POC Glucose 264 H 340 H* 306 H* 10/19/24 10/19/24 10/20/24 15:57 19:54 06:41 Glucose 171 H POC Glucose 262 H 243 H 10/20/24 07:38 Glucose POC Glucose 186 H OUTPATIENT ANTIDIABETIC REGIMEN: * Tresiba 44 units SC AM * Novolog 24 units SC AC * Ozempic 2 mg SC every Sunday HbA1c: * 10.3% (10/07/24) ASSESSMENT: 10/20/24: * Blood sugars have been elevated over past 48 hours despite aggressive insulin regimen yielding > 100 units of insulin/day * Per patient, blood sugars generally ~280 mg/dL at home * Previously during this admission, patient experienced hypoglycemia with increased basal doses 10/17/24 * Patient received a total of 100 units of insulin yesterday (35 units were basal and 65 units were bolus) * BSGs elevated most of the days yesterday-([phone]/dL). With the increase in total daily basal insulin yesterday (from 30units to 35 units total) I'm hoping that the BSGs are more in range today. BSG at lunch was 206mg/dL so will also tighten CR. * She is still being treated for C.diff and is on 1/2NS + 20kcl/L at 80ml/hr. 10/15/24: * BSGs in goal range yesterday (10/14). Fasting BSG elevated at 211 today. * Patients diet was increased from liquids to full T2DM diet so patient may be eating more now * Will add Lantus morning coverage to help better cover patients increased food intake while decreasing the bedtime dose to aim for a total of 40 units/daily. * Pt remains on current C.diff tx 10/13/24: * Blood sugars have been labile over past several days with variable basal insulin doses * Hyperglycemia noted yesterday, but episode of hypoglycemia this morning (blood sugar of 68 mg/dL) * Despite hyperglycemia yesterday, will slightly loosen Novolog and hold off on basal for now due to hypoglycemia this AM * Remains on clear liquid/T2DM diet * Ongoing treatment for C. difficile colitis with vancomycin PO + enema and metronidazole IV 10/10 * Jovita received 113 units of insulin yesterday (65 were basal) * Fasting BSG this AM acceptable, reported nausea and vomiting this AM, diet changed to NPO with N/V and C. Diff diarrhea. Will reduce basal insulin by approximately 50% due to NPO status. Will transition back to HS administration per CDE recommendations. * No changes to NovoLog at this time, correction factor appears adequate. * She remains on IV Flagyl and PO Vanc 10/08 * 63 yo F admitted on 10/07/24 secondary to nausea/vomiting from hyperglycemia. Pharmacy has been consulted to assist with inpatient glycemic management. Patient is a Type 2 diabetic as an outpatient. Please refer to outpatient regimen and most recent HbA1c above. * Patient well known to pharmacy glycemic service. Was recently admitted to [facility] from 10/01/24 - 10/03/24. * BSG was above 400 mg/dL upon arrival. Received two separate 10 unit IV insulin boluses yesterday afternoon. BSG decreased to 325 mg/dL. * Started on subcutaneous basal-bolus insulin last evening based on previous admission data. Received 55 units of basal and 28 units bolus. HS and midnight checks were 319 and 169 mg/dL. * Fasting BSG was 188 mg/dL this AM. Patient being treated for C. diff infection with PO vanc and IV metronidazole. Ordered a T2DM diet but not eating much per RN. Had 2 nepali ices for lunch. * Will continue with previously ordered basal dose for now. Will attempt to transition this to AM dosing to match outpatient regimen. Give a dose around noon today and then can start with AM tomorrow. * Did tighten Novolog slightly this morning. PLAN FOR INPATIENT GLYCEMIC CONTROL: * Basal insulin * Lantus 40 units SC daily * Lantus 0-5-10 units SC HS (see EHR for details) * Bolus insulin * NovoLog per scale ACHS or Q6hrs while NPO * Goal Range: Low 110 mg/dL - High 140 mg/dL * Correction Factor: 10 mg/dL/unit * Nutritional / Prandial insulin per carb ratio of 1 unit per 2 grams CHO consumed
--- NOTE | 2024-10-20 12:05 | Hospitalist Progress Note ---
Date of Service October 20, 2024 Assessment & Plan (1) Acute hyperglycemia: (2) Insulin dependent type 2 diabetes mellitus: (3) Sepsis: (4) Acute colitis: (5) Hypertensive urgency: (6) Abnormal urinalysis: (7) Prolonged QT interval: (8) Hypomagnesemia: (9) Elevated troponin: Plan Jovita Rose is a 63y/o F with PMHx significant for aortic stenosis s/p TAVR [2017], CAD s/p drug-eluting stent to LAD, HFpEF, DM type II, hypothyroidism, HLD, liver cirrhosis 2/2 LEYVA, HTN, questionable paroxysmal atrial fibrillation, DANYELLE intolerant to CPAP, CKD stage III, benign paroxysmal positional vertigo 2/2 bilateral vestibular disorder, schizoaffective disorder, history of breast cancer s/p bilateral mastectomies + chemoradiation [2007], history of colon cancer s/p colon resection, history of GI bleed, history of C. difficile infection and splenic infarcts who presented to the ED via EMS on 10/07/24 with multiple complaints including nausea/vomiting, hyperglycemia and diarrhea. Of note, patient was recently discharged from the hospital on 10/03/24; she was admitted with strokelike symptoms which were thought to be as a result of hyperglycemia in the setting of uncontrolled, insulin-dependent DM type II. Stroke work-up was completely unremarkable. She was discharged home with [facility] services following that admission. C. difficile colitis Sepsis secondary to C. difficile Patient presented with multiple episode of diarrhea from home. History of recurrent C. difficile infection CT abdomen pelvis on admission concerning for diffuse colitis on admission; no free air or abscess. C. difficile toxin positive Patient was admitted and was started on oral vancomycin 500 mg every 6 hours along with IV Flagyl. Repeat CT abdomen/pelvis obtained on 10/10 showed progressive worsening of the pancolitis. ID was consulted, recommended the following: "C. diff colitis concern for developing toxic megacolon - Agree with Vancomycin 500 mg PO QID and Metronidazole 500 mg IV q8, please add Vancomycin 500 mg [place] (Per Rectum) q8 to try to prevent progression. - Agree with Surgical consult and recommendation, if patient does not improve, recommend surgical intervention." General Surgery was consulted, recommended/stated the following: -continue conservative rx -no surgical intervention required GI was consulted, recommended/stated the following: "- Continue oral Vancomycin w/ an extended tapering course - Continue rectal Vancomycin - Continue IV Flagyl - Appreciate surgical input She should be placed on a prophylaxis course of oral Vancomycin while other courses of ABX are used - Follow up with [facility] as an outpatient to discuss candidacy for Zinplava" Was on IV fluids Rectal tube removed on 10/15 Continue KUB daily PT/OT- recommending home with HH Case discussed with Infectious Disease, Dr Shailesh España on 10/16/24 who recommended the following for discharge: "routine vanco taper: 125mg qid x 2 weeks, then 125mg bid x 1 week, then 125mg qd x 1 week, then 125mg qod x 2 weeks" Pt still with copious BMs, area red and chaffed. Wilson still in place. Lives alone, refusing rehab/snf, plan to discharge home with HH once bowel movements are better controlled. Improving Remove wilson, Anticipate discharge in the AM Uncontrolled Insulin-Dependent DMII: Hgba1c of 10.3 Patient with known history of uncontrolled insulin-dependent DMII. Patient's outpatient insulin regimen is 44U of insulin degludec daily and 24U of insulin aspart TIDM. Started on Lantus/NovoLog. Pharmacy on board. Hyponatremia serum sodium down trended to 126 on October 08, 2023 Plasma-Lyte was discontinued Urine osm of 410 mosm/kg Serum sodium improved Continue IV fluids for now given diarrhea Continue to monitor Improved Prolonged QT Interval QTc prolonged at 534ms on presenting EKG. Holding home trazodone, duloxetine and meclizine. Repeat EKG from 10/09 shows improved QTc of 485 ms Continue to monitor on telemetry Hypomagnesemia Replete as needed Elevated Troponin Initial troponin 20.7 presenting EKG with no evidence of acute ST changes Likely demand ischemia ISO acute illness and dehydration Chronic HFpEF, Aortic Stenosis S/P TAVR, HTN: Previous ALMA from 05/2023 --> LVEF of 55 to 59%, no LV segmental wall motion abnormalities Continue metoprolol tartrate 50mg BID as per above, ASA 81mg daily and atorvastatin 40mg daily Plavix resumed Diet: DMII or low fiber DVT Prophylaxis: SQ Heparin Code Status: FULL CODE PCP: Gregory Rausch MD DispositionPT/OT recommending home with home health Admission and Anticipated Discharge Date Admission Date: October 07, 2024 Subjective pt was seen in the AM per pt she has been able to get up to use the bathroom on her own Daughter Charlene called and updated will be in tomorrow Review of Systems Review of Systems: All systems reviewed & are unremarkable except as noted in Subjective Physical Exam Physical Exam: General: Alert, oriented. No acute distress HEENT: NC/AT CV: RRR Resp: Breath sounds clear bilaterally, no increased effort of breathing Abdomen: Soft, mildly tender Extremities: No edema in lower extremities bilaterally. : wilson in at time of exam Results & Data Results & Data Vital Signs (Past 12 Hours) Vital Signs Temp Pulse Resp BP Pulse Ox O2 Del Method 10/20/24 11:30 36.9 C 63 18 127/75 96 Room Air 10/20/24 07:25 36.9 C 73 17 136/76 97 Room Air 10/20/24 03:16 36.9 C 72 18 146/72 H 95 Room Air (3) Sepsis Sepsis acute organ dysfunction status: unspecified Sepsis type: sepsis due to unspecified organism Qualified Code(s): A41.9 - Sepsis, unspecified organism
[2024-10-21 06:38] LABS: Basophils # (auto) 0.04 K/uL (0.00-0.20); Basophils % (auto) 0.4 %; Eosinophils % (auto) 1.1 %; Hematocrit (blood only) 29.1 % (37.0-47.0); Hemoglobin 9.9 g/dl (12.0-16.0); Immature Granulocytes # (auto) 0.05 K/uL (0.01-0.20); Immature Granulocytes % (auto) 0.5 %; Lymphocytes # (auto) 2.79 K/uL (1.20-3.40); Lymphocytes % (auto) 29.8 %; Mean Corpuscular Hemoglobin 27.8 pg (25.0-34.0); Mean Corpuscular Volume 81.7 fL (80.0-100.0); Mean Platelet Volume 10.6 fL (9.4-12.4); Monocytes # (auto) 0.65 K/uL (0.11-0.59); Monocytes % (auto) 6.9 %; Neutrophils # (auto) 5.73 K/uL (1.40-6.50); Neutrophils % (auto) 61.3 %; Platelet Count 193 K/uL (130-400); RDW Coefficient of Variation 15.3 % (11.5-14.5); RDW Standard Deviation 43.5 fL (36.4-46.3); Red Blood Count 3.56 M/uL (4.20-5.40); White Blood Count 9.36 K/ul (4.8-10.8)
[2024-10-21 06:58] LABS: Albumin Globulin Ratio 0.8 (0.9-2); Albumin Level 2.6 gm/dl (3.4-5.0); BUN Creatinine Ratio 16.2 (10-20); Bilirubin,Total 0.5 mg/dl (0.2-1.0); Calcium 9.3 mg/dl (8.6-10.3); Globulin 3.4 gm/dl (2.5-4.0); Magnesium 1.4 mg/dl (1.7-2.4); Phosphorus 4.3 mg/dl (2.5-4.9); Potassium 4.5 mmol/L (3.5-5.1)
[2024-10-21 07:19] LABS: Ferritin 144.7 ng/ml (8-388)
[2024-10-21 07:23] LABS: Folate (Folic Acid),Ser orPlas 22.2 ng/ml (>5.38)
[2024-10-21] MEDS: LANTUS PER UNIT CHARGE SC SCH (08:33)
[2024-10-21] MEDS: MAGNESIUM SULFATE / D5W 1 GM/100 ML BAG IV SCH (10:16)
[2024-10-21 12:09] VITALS: RESP 17; TEMP 98.4; O2SAT 96
--- NOTE | 2024-10-21 12:17 | Discharge Summary ---
Discharge Summary Date of Service October 21, 2024 Principal Dx & Hospital Course #1 = Principal Diagnosis (1) Acute hyperglycemia: (2) Insulin dependent type 2 diabetes mellitus: (3) Sepsis: (4) Acute colitis: (5) Hypertensive urgency: (6) Abnormal urinalysis: (7) Prolonged QT interval: (8) Hypomagnesemia: (9) Elevated troponin: Tammie Rose is a 63y/o F with PMHx significant for aortic stenosis s/p TAVR [2017], CAD s/p drug-eluting stent to LAD, HFpEF, DM type II, hypothyroidism, HLD, liver cirrhosis 2/2 LEYVA, HTN, questionable paroxysmal atrial fibrillation, DANYELLE intolerant to CPAP, CKD stage III, benign paroxysmal positional vertigo 2/2 bilateral vestibular disorder, schizoaffective disorder, history of breast cancer s/p bilateral mastectomies + chemoradiation [2007], history of colon cancer s/p colon resection, history of GI bleed, history of C. difficile infection and splenic infarcts who presented to the ED via EMS on 10/07/24 with multiple complaints including nausea/vomiting, hyperglycemia and diarrhea. Of note, patient was recently discharged from the hospital on 10/03/24; she was admitted with strokelike symptoms which were thought to be as a result of hyperglycemia in the setting of uncontrolled, insulin-dependent DM type II. Stroke work-up was completely unremarkable. She was discharged home with [facility] services following that admission. C. difficile colitis Sepsis secondary to C. difficile Patient presented with multiple episode of diarrhea from home. History of recurrent C. difficile infection CT abdomen pelvis on admission concerning for diffuse colitis on admission; no free air or abscess. C. difficile toxin positive Patient was admitted and was started on oral vancomycin 500 mg every 6 hours along with IV Flagyl. Repeat CT abdomen/pelvis obtained on 10/10 showed progressive worsening of the pancolitis. ID was consulted, recommended the following: "C. diff colitis concern for developing toxic megacolon - Agree with Vancomycin 500 mg PO QID and Metronidazole 500 mg IV q8, please add Vancomycin 500 mg VA (Per Rectum) q8 to try to prevent progression. - Agree with Surgical consult and recommendation, if patient does not improve, recommend surgical intervention." General Surgery was consulted, recommended/stated the following: -continue conservative rx -no surgical intervention required GI was consulted, recommended/stated the following: "- Continue oral Vancomycin w/ an extended tapering course - Continue rectal Vancomycin - Continue IV Flagyl - Appreciate surgical input She should be placed on a prophylaxis course of oral Vancomycin while other courses of ABX are used - Follow up with [facility] as an outpatient to discuss candidacy for Zinplava" Was on IV fluids Rectal tube removed on 10/15, wilson removed day before discharge KUB daily until 10/17/24 PT/OT- recommending home with HH Case discussed with Infectious Disease, Dr Shailesh España on 10/16/24 who recommended the following for discharge: "routine vanco taper: 125mg qid x 2 weeks, then 125mg bid x 1 week, then 125mg qd x 1 week, then 125mg qod x 2 weeks" On day of discharge, pt with normal WBC, improved bowel movements, able to get to commode on her own, improved fecal incontinence. Her area had improved irritation. Discharged with oral vancomycin pulse taper and Calmoseptine cream. Please ensure close GI and ID followup after discharge. Uncontrolled Insulin-Dependent DMII: Hgba1c of 10.3 Patient with known history of uncontrolled insulin-dependent DMII. Patient's outpatient insulin regimen is 44U of insulin degludec daily and 24U of insulin aspart TIDM. Appears she is also on ozempic. Inpt basal/bolus insulin regimen. Close PCP followup, consider [facility]TM pharmacy followup. Hyponatremia serum sodium down trended to 126 on October 08, 2023 Plasma-Lyte was discontinued Urine osm of 410 mosm/kg Serum sodium improved Continue IV fluids for now given diarrhea Continue to monitor Improved 0 134 on discharge PCP followup Prolonged QT Interval QTc prolonged at 534ms on presenting EKG. Holding home trazodone, duloxetine and meclizine. Repeat EKG from 10/09 shows improved QTc of 485 ms Improved on discharge Hypomagnesemia Repleted as needed Elevated Troponin Initial troponin 20.7 presenting EKG with no evidence of acute ST changes Likely demand ischemia ISO acute illness and dehydration Chronic HFpEF, Aortic Stenosis S/P TAVR, HTN: Previous ALMA from 05/2023 --> LVEF of 55 to 59%, no LV segmental wall motion abnormalities Continue metoprolol tartrate 50mg BID as per above, ASA 81mg daily and atorvastatin 40mg daily Plavix resumed Notes For Next Care Provider Medication Changes From Visit Vancomycin pulse taper Calmoseptin cream prn Admission HPI Per Admitting Provider Jovita Rose is a 63y/o F with PMHx significant for aortic stenosis s/p TAVR [2017], CAD s/p drug-eluting stent to LAD, HFpEF, DM type II, hypothyroidism, HLD, liver cirrhosis 2/2 LEYVA, HTN, questionable paroxysmal atrial fibrillation, DANYELLE intolerant to CPAP, CKD stage III, benign paroxysmal positional vertigo 2/2 bilateral vestibular disorder, schizoaffective disorder, history of breast cancer s/p bilateral mastectomies + chemoradiation [2007], history of colon cancer s/p colon resection, history of GI bleed, history of C. difficile infection and splenic infarcts who presented to the ED via EMS on 10/07/24 secondary to nausea/vomiting and hyperglycemia. History obtained from the patient, discussion with ED provider and associated chart review. Of note, patient was recently discharged from our service on 10/03/24; she was admitted with strokelike symptoms which were thought to be as a result of hyperglycemia ISO uncontrolled, insulin-dependent DM type II. Stroke work-up was completely unremarkable. She was discharged home with [facility] HH services following that admission. Patient is coming in today with nausea/vomiting since this morning as well as hyperglycemia. Patient's outpatient insulin regimen is 44U of insulin degludec daily and 24U of insulin aspart TIDM. Patient reports that she has been unable to monitor her BSG at home since her discharge last week as her glucometer was not working. Patient reportedly had a Dexcom G6 CGM prior to her previous admission however her caregiver was unable to locate another CGM at her house; patient does report though that she had been administering her insulin at home. Patient did not receive any insulin prior to presenting the ED today. BSG upon presentation to the ED today was 417. Initial laboratory evaluation was negative for anion gap as well as hypercarbia. Patient received 1.5L NSS in the ED. She also received 10 units of Novolin-R in the ED with repeat BSG of 358 at the time of my evaluation around 5PM. Patient has also been experiencing some diarrhea over the past 2 days without any abdominal pain. She denies any hematochezia or melena. Her appetite has been significantly decreased since being discharged last week. She endorses poor oral hydration status as well over the past few days. No reported fevers at home. She denies any SOB or chest pain. She does endorse the very mild nonproductive cough as well as clear sinus drainage. She denies any urinary issues such as dysuria or hematuria. Admission Exam Per Admitting Provider VS noted and reviewed orientedX 3 , not in distress, speaks in sentences with no effort nor accessory muscle use Tachycardic, regular rhythm, no murmurs clear breath sounds bilaterally non distended, soft, nontender no bipedal edema, erythema, warmth no neuro deficits Discharge Exam General: Alert, oriented. No acute distress HEENT: NC/AT CV: RRR Resp: Breath sounds clear bilaterally, no increased effort of breathing Abdomen: Soft, mildly tender Extremities: No edema in lower extremities bilaterally. Updated Medication List Medication Instructions Recorded Confirmed Type atorvastatin 40 mg tablet (Lipitor) 40 mg PO DAILY 05/02/19 10/07/24 History clopidogrel 75 mg tablet (Plavix) 75 mg PO DAILY 05/02/19 10/07/24 History levothyroxine 75 mcg tablet 75 mcg PO DAILY 05/02/19 10/07/24 History meclizine 25 mg tablet 50 mg PO BID 05/02/19 10/07/24 History trazodone 100 mg tablet 300 mg PO HS PRN Insomnia 02/14/23 10/07/24 History flash glucose scanning reader #1 ea 02/15/23 10/07/24 Rx (FreeStyle Keisha 2 [place]) ammonium lactate 12 % lotion 1 applic topical DAILY 06/03/23 10/07/24 History aspirin 81 mg tablet,delayed 81 mg PO DAILY 06/03/23 10/07/24 History release cranberry extract-vitamin C 250 2 cap PO TID 06/03/23 10/07/24 History mg-60 mg capsule (Azo Cranberry Plus Vit C) fluticasone propionate 50 2 spray intranasal DAILY 06/03/23 10/07/24 History mcg/actuation nasal spray,suspension insulin degludec 200 unit/mL (3 44 unit subcut HS 06/03/23 10/09/24 History mL) subcutaneous pen (Tresiba FlexTouch U-200 insulin) melatonin 10 mg tablet 10 mg PO HS 06/03/23 10/07/24 History multivitamin with minerals 1 tab PO DAILY 06/03/23 10/07/24 History nystatin 100,000 unit/gram topical 1 applic topical DIRECTED PRN 06/03/23 10/07/24 History powder Skin Irritation semaglutide 2 mg/dose (8 mg/3 mL) 2 mg subcut WK 06/03/23 10/07/24 History subcutaneous pen injector (Ozempic) Al hyd-Mg tr-alg ac-sod bicarb 80 1 tab PO DIRECTED PRN Gi Upset 10/27/23 10/07/24 History mg-14.2 mg chewable tablet (Gaviscon) insulin aspart U-100 100 unit/mL 24 unit subcut TIDM 50 UNITS/DAILY 10/27/23 10/07/24 History (3 mL) subcutaneous pen (Novolog FlexPen U-100 Insulin aspart) metoprolol tartrate 25 mg tablet 50 mg PO BID 10/27/23 10/07/24 History gabapentin 300 mg capsule 300 mg PO TID 06/05/24 10/07/24 History Lactobacillus acidophilus 1 1,000 mmu cells PO DAILY #30 caps 06/10/24 10/07/24 Rx billion cell capsule duloxetine 20 mg capsule,delayed 20 mg PO DAILY 10/01/24 10/07/24 History release topiramate 25 mg tablet 25 mg PO HS 10/01/24 10/07/24 History menthol 0.44 %-zinc oxide 20.6 % 1 applic topical TID PRN skin 10/21/24 Rx topical ointment (Calmoseptine) irritation #113 grams vancomycin 125 mg capsule 125 mg PO DIRECTED #84 caps 10/21/24 Rx Hospital Stay Data Consultations 10/07/24 14:48 ED Decision to Admit Stat 10/08/24 09:23 Consult Gastroenterology Routine 10/09/24 09:49 Consult Infectious Diseases Routine 10/10/24 11:56 Consult General Surgery Routine Diagnostic Imagining Performed 10/07/24 15:19 CT Abd and Pelvis [CT abd pelvis wo con] Urgent 10/08/24 01:09 CT head/brain wo con Stat 10/10/24 08:34 CT abd pelvis IV con only Urgent Chest X-Ray 10/07/24 12:41 XR chest 1V portable CLINICAL HISTORY: weak TECHNIQUE: Single frontal radiograph of the chest was obtained. Comparison: Comparison is made to chest radiograph 10/01/2044 FINDINGS: Median sternotomy wires are unchanged. Calcified aortic knob is seen. Aortic valvular prosthesis is again seen. The lungs are clear. No evidence of pleural effusion or pneumothorax. IMPRESSION: No acute chest disease. ACT 112: Negative or not required by law. Electronically signed by: Wilmer Saunders M.D. 10/07/2024 1:03 PM Abdomen/Pelvis CT 10/07/24 15:19 INDICATION: Diarrhea. COMPARISON: CT from 06/05/2024. TECHNIQUE: Axial CT images of the abdomen and pelvis were obtained without IV contrast administration. Coronal and sagittal reformations were reviewed. FINDINGS: Visualized lung bases appear unremarkable. Small left hepatic lobe cyst again noted. The gallbladder, spleen, pancreas and left adrenal gland appear unremarkable. Right adrenal gland lipid rich adenoma appears unchanged. Renal cysts again noted, no significant change. Nonobstructing 4 mm right renal calculus. Diffuse colonic wall thickening with adjacent inflammation. No evidence of bowel obstruction/appendicitis. No free air or abscess. No free air. No drainable fluid collection. The urinary bladder appears unremarkable. Phleboliths in the pelvis. No acute osseous abnormality evident. IMPRESSION: 1. Findings concerning for diffuse colitis. No free air or abscess. 2. Nonobstructing 2 mm right renal calculus. Electronically signed by Dada Ricks 10-07-2024 5:[address] 10/08/24 01:09 EXAM: CT head/brain wo con CLINICAL HISTORY: AMS, Thrombocytopenia. TECHNIQUE: An axial non-contrast CT scan of the brain was performed from the skull base to the high parietal region. One of the following dose reduction techniques were utilized for this exam: Automated exposure control, adjustment of the mA and/or kV according to patient size, and use of iterative reconstruction. COMPARISON: CT head dated 10/02/2024 FINDINGS: Brain Parenchyma: A few chronic lacunar infarcts are identified in both basal ganglia and periventricular region Normal attenuation cerebellum, and brainstem. No evidence of acute infarct, hemorrhage, or mass effect. Mild diffuse hypodensity is identified in periventricular deep white matter Atherosclerotic changes seen in both internal carotid and vertebral arteries Ventricular System: Age-appropriate mild dilatation of the ventricular system seen No evidence of hydrocephalus Subarachnoid Spaces: Mild widening of sulci is identified No evidence of subarachnoid hemorrhage or extra-axial fluid collections. Cerebellum and Brainstem: Normal size and density No masses, lesions, or areas of abnormal density. Orbits: Normal appearance of the globes, optic nerves, and extraocular muscles. No evidence of orbital masses or abnormal density Sinuses: Clear paranasal sinuses. No evidence of sinusitis or mucosal thickening. Mild deviation of the nasal septum towards right side Mastoid Air Cells: Minimal opacification of both mastoid air cells Skull: Normal skull morphology. Hyperostosis frontalis interna seen IMPRESSION: 1. No evidence of intracranial hemorrhage, gross territorial infarction or mass-effect. In view of patient's history MRI brain may be obtained for further evaluation 2. Few chronic lacunar infarcts are identified in both basal ganglia and periventricular region, with no interval change 3. Age-appropriate volume loss in brain parenchyma and mild periventricular deep white matter ischemic changes, with no significant interval changes 4. Interval stable minimal bilateral mastoiditis 5. The previously seen hyperdense dural sinuses are not visualized in the current examination 6. Other significant interval changes Electronically signed by Beckie Rome 10-08-2024 02:23 AM Abdomen/Pelvis CT 10/10/24 08:[address] WITH IV CONTRAST CT DOSE: 1187.51 mGy.cm HISTORY: Acute onset abdominal pain with possible colitis Follow up on progression of colitis TECHNIQUE: Multiaxial CT images of the abdomen and pelvis were performed following the IV administration of 90 cc of Optiray, A dose lowering technique was utilized adhering to the principles of ALARA. COMPARISON STUDY: 10/07/2024, 06/05/2024 FINDINGS: Partially imaged left breast implant with pericapsular soft tissue thickening and small pericapsular collection which is similar to prior. Clear lung bases. Cardiomegaly with retained epicardial leads. No pneumatosis or pneumoperitoneum. The spleen is enlarged, 16 cm. Subcentimeter ill-defined hypodense focus of the mid spleen is unchanged and likely benign. Unremarkable pancreas and left adrenal gland. Right adrenal myelolipoma, 1.6 cm. There are a few small cysts noted within the liver. Mild marginal nodularity of the liver may represent early cirrhosis. Patency of the hepatic and portal veins. Unremarkable gallbladder. Right renal cysts are noted. There is a 2.6 cm exophytic mildly hyperdense les ion of the right kidney which is unchanged and favors a complex cyst. 5 mm nonobstructing calculus of the inferior pole right kidney. No hydronephrosis. Decompressed urinary bladder with Wilson catheter in place. Hysterectomy. Atherosclerosis of the aorta without aneurysm. Mild distal esophageal wall thickening with small hiatal hernia. There is progressively worsened circumferential wall thickening of the rectum and majority of the large bowel with adjacent pericolonic and perirectal inflammatory stranding. Progressive small amount of abdominal pelvic ascites. Fluid-filled loops of small bowel are noted with a few loops of small bowel wall thickening also present. A normal appendix is not visualized. Previously noted cystic structure adjacent to the cecum is obscured by the ascites. No acute fracture. Mild generalized body wall edema. IMPRESSION: 1. Progressive worsening of the likely infectious or inflammatory pancolitis with probable associated mild enteritis. 2. Small amount of abdominopelvic ascites has progressed from 10/07/2024. 3. No bowel obstruction or pneumoperitoneum. 4. Right nephrolithiasis without hydronephrosis. ACT 112: Negative or not required by law. The above report was generated using voice recognition software. It may contain grammatical, syntax or spelling errors. Electronically signed by: Rafa Leslie M.D. 10/10/2024 11:43 AM KUB X-Ray 10/11/24 06:00 EXAM: Radiograph of the Abdomen 1 View INDICATION: Follow-up colitis TECHNIQUE: Frontal supine view of the abdomen/pelvis. COMPARISON: CT abdomen 10/07/2024 FINDINGS: Limitations: None. Gastrointestinal tract: Comparing the plain radiographs to the CT, there is probable stable colitis. Slightly more colonic air noted. No distention. Organs: Visualized organ shadows appear grossly normal. Bones/joints: No fracture, erosion or dislocation. Soft tissues: No abnormality noted. No radiopaque foreign body noted. IMPRESSION: Allowing for limitations of comparing different modalities, colitis is grossly stable. There is slightly more air in the colon without distention. ACT 112: Negative or not required by law. Electronically signed by Mariana Nowak 10-11-2024 12:05 PM KUB X-Ray 10/12/24 06:00 EXAM: XR KUB/Abdomen 1 view CLINICAL HISTORY: Follow up on colitis portable TECHNIQUE: X-ray image of the abdomen obtained in 1 frontal projection. COMPARISON: Prior X-ray dated 10/11/2024 for comparison. FINDINGS: Gas Pattern: Few gas filled bowel loops in the lower abdomen. No evidence of bowel obstruction or distention. Soft Tissues: Soft tissues of the abdomen appear normal without evidence of masses or calcifications. Liver, spleen, and kidneys are of normal size and position. Spondylotic changes in thoracolumbar spine. IMPRESSION: 1. Few gas filled bowel loops in the lower abdomen, new finding. 2. No evidence of bowel obstruction or distention. Electronically signed by Beckie Rome 10-12-2024 09:05 AM KUB X-Ray 10/13/24 08:00 KUB CLINICAL HISTORY: Follow up on colitis COMPARISON STUDY: CT of the abdomen and pelvis October 10, 2004. KUB October 12, 2024. FINDINGS: Mild gaseous distention of small and large bowel has slightly increased since KUB of October 12, 2024. Ahaustral appearance of portions of the colon represent underlying colitis, as shown on prior CT. Sensitivity for detection of free air is diminished on supine exam but none is identified. No urinary calculi are identified. IMPRESSION: 1. Mild increase in gaseous distention of the colon with radiographic evidence for colitis, as shown on CT. 2. Several prominent gas-filled loops of small bowel without convincing evidence for a bowel obstruction. The findings may represent an associated ileus. ACT 112: Negative or not required by law. Electronically signed by: Fabian Flores M.D. 10/13/2024 9:00 AM KUB X-Ray 10/14/24 08:00 EXAM: XR KUB/Abdomen 1 view CLINICAL HISTORY: Follow up on colitis portable. TECHNIQUE: X-ray image of the abdomen obtained in 1 frontal projection COMPARISON: 10/12/2024 X-ray Abdomen. FINDINGS: Gas Pattern: Bowel loops with air in the lower abdomen without significant changes from the previous study. No evidence of bowel obstruction or distention. Soft Tissues: Soft tissues of the abdomen appear normal without evidence of masses. The liver, spleen, and kidneys are of normal size and position. Calcification in the right minor pelvis in probable relation to phlebolith. Spondylotic changes in the thoracolumbar spine. IMPRESSION: 1. No evidence of bowel obstruction or distention. 2. No interval changes. Electronically signed by Beckie Rome 10-14-2024 07:55 AM KUB X-Ray 10/15/24 09:39 KUB HISTORY: Cdiff COMPARISON STUDY: 10/14/2024 through 10/10/2024 FINDINGS: There is mild gaseous gastric distention. There is persistent colonic wall thickening, better seen on the prior CT. There is no evidence of bowel obstruction. No gross free air. IMPRESSION: Persistent colonic wall thickening with no bowel obstruction seen. ACT 112: Negative or not required by law. The above report was generated using voice recognition software. It may contain grammatical, syntax or spelling errors. Electronically signed by: Kal Quintana M.D. 10/15/2024 10:10 AM KUB X-Ray 10/16/24 17:45 EXAM: Radiograph of the Abdomen 1 View INDICATION: C. difficile. TECHNIQUE: Frontal supine view of the abdomen/pelvis. COMPARISON: No relevant prior studies available. FINDINGS: Limitations: None. Gastrointestinal tract: There is moderate gaseous distention of the stomach. Small amounts of air noted throughout nondilated bowel loops. The descending colon contains some air and is relatively collapsed. Organs: Visualized organ shadows appear grossly normal. Bones/joints: No fracture, erosion or dislocation. Soft tissues: No abnormality noted. No radiopaque foreign body noted. IMPRESSION: Moderately dilated stomach. The bowel is otherwise difficult to assess without distention. ACT 112: Negative or not required by law. Electronically signed by Mariana Nowak 10-16-2024 6:09 PM KUB X-Ray 10/17/24 17:45 EXAM: Radiograph of the Abdomen 1 View INDICATION: C. difficile. TECHNIQUE: Frontal supine view of the abdomen/pelvis. COMPARISON: No relevant prior studies available. FINDINGS: Limitations: None. Gastrointestinal tract: Air scattered throughout non-dilated intestinal loops. Organs: Visualized organ shadows appear grossly normal. Bones/joints: No fracture, erosion or dislocation. Soft tissues: There is soft tissue edema of the left flank. There is edema of the transverse colon which is mildly dilated with air. Small amounts of stool noted in the colonic flexures. There is a small amount of air in the rectum. IMPRESSION: 1. Transverse colonic edema. Bowel loops are otherwise poorly assessed due to lack of aeration. 2. There is soft tissue edema of the left flank. ACT 112: Negative or not required by law. Electronically signed by Mariana Nowak 10-17-2024 7:00 PM Discharge Instructions Given to Patient (Per Discharging Provider) Chase Hussein were admitted and treated for a severe and recurrent c diff infection. Infectious Disease recommends discharge home with an oral vancomycin pulse taper. We discontinued your home magnesium supplement as that can also contribute to diarrhea. You will need close followup with your primary care provider after discharge for continued monitoring of your magnesium levels. Please keep close follow up with your primary care provider after discharge. Please do not hesitate to come back to the emergency room if your symptoms worsen or return. It was a pleasure taking care of you while you were here. Total Time Total Time Spent Total Time Spent (In Minutes): 65
[2024-10-21 15:11] VITALS: BP 124/71; PULSE 81
[2024-10-21] MEDS ORDERED: LANTUS PER UNIT CHARGE SC SCH (21:00)
== END 2024-10-21 15:56 | disposition home health service (06) | DRG 871 ==
LOC: ED 12:01 → 2S 15:18 → SUATTDRO 15:18 → 2S 16:14